=== PATIENT | female | born 1975 | race Caucasian/White ===

== ENCOUNTER 2023-06-13 14:49 | Outpatient (OUT) | payer OTHER, SELFPAY ==
[2023-06-14 05:07] LABS: Complement C3, Serum 146 mg/dL (82-167); Complement C4, Serum 22 mg/dL (12-38)
[2023-06-15 17:07] LABS: Anti-DNA (DS) Ab Qn <1 IU/mL (0-9); Antichromatin Antibodies <0.2 AI (0.0-0.9); RNP Antibodies <0.2 AI (0.0-0.9); Rheumatoid Factor (RF) <10.0 IU/mL (<14.0); Sjogren's Anti-SS-A <0.2 AI (0.0-0.9); Sjogren's Anti-SS-B <0.2 AI (0.0-0.9)
[2023-06-17 08:11] LABS: Antinuclear Antibodies, IFA Negative (.)
== END 2023-06-13 14:50 | disposition home or self-care (01) ==
LOC: LAB 14:53
PROVIDERS: PCP Family Medicine; Visit Provider Family Medicine
DX: M12.9 Arthropathy, unspecified (principal)
CPT/HCPCS: 36415; 86038; 86160; 86225; 86235; 86430; 86431

== ENCOUNTER 2023-09-05 06:51 | Outpatient (OUT) | payer OTHER, SELFPAY ==
[2023-09-05 08:27] LABS: Estimated Average Glucose 123 mg/dL; Glycohemoglobin A1C 5.9 % (4.5-6.2)
== END 2023-09-05 06:52 | disposition home or self-care (01) ==
PROVIDERS: PCP Family Medicine; Visit Provider Family Medicine
DX: R73.09 Other abnormal glucose (principal)
CPT/HCPCS: 36415; 83036

== ENCOUNTER 2023-09-13 07:20 | Outpatient (OUT) | payer OTHER, SELFPAY ==
[2023-09-13 07:39] LABS: Basophils Absolute Auto 0.1 10^3/uL (0.0-0.1); Basophils Percent Auto 0.5 % (0.2-2.0); Eosinophils Absolute Auto 0.1 10^3/uL (0.0-0.7); Eosinophils Percent Auto 1.1 % (0.9-7.0); Hematocrit 43.6 % (36.0-48.0); Hemoglobin 14.6 g/dL (12.0-16.0); Immature Granulocytes Abs Auto 0.02 10^3/uL (0.00-0.03); Immature Granulocytes Pct Auto 0.2 % (0.0-0.5); Lymphocytes Absolute Auto 4.8 10^3/uL (1.2-3.8); Mean Corpuscular HGB Conc 33.5 g/dL (29.9-35.2); Mean Corpuscular Hemoglobin 31.9 pg (26.7-34.0); Mean Corpuscular Volume 95.2 fL (81.0-99.0); Mean Platelet Volume 10.5 fL (9.5-13.5); Monocytes Absolute Auto 0.6 10^3/uL (0.3-0.8); Monocytes Percent Auto 6.4 % (1.7-12.0); Neutrophils Absolute Auto 3.9 10^3/uL (1.4-6.5); Neutrophils Percent Auto 40.8 % (43.0-75.0); Platelet Count 281 10^3/uL (150-450); Red Blood Count 4.58 10^6/uL (4.20-5.40); Red Cell Distribution Width 11.8 % (11.0-15.0); White Blood Count 9.5 10^3/uL (4.0-11.0)
[2023-09-13 08:30] LABS: Alanine Aminotransferase 33 U/L (14-59); Albumin Globulin Ratio 1.4; Albumin Level 4.2 g/dL (3.4-5.0); Alkaline Phosphatase 48 U/L (46-116); Anion Gap 12.7; Aspartate Amino Transferase 15 U/L (15-37); BUN Creatinine Ratio 12.8; Bilirubin Total 2.1 mg/dL (0.2-1.0); Calcium 9.1 mg/dL (8.5-10.1); Carbon Dioxide 28.3 mmol/L (21.0-32.0); Chloride 103 mmol/L (98-107); Estimated GFR (African America >60 (>=60); Estimated GFR (Non-African Ame >60 (>=60); Globulin 3.1 g/dL; Glucose 106 mg/dL (74-106); Magnesium 2.5 mg/dL (1.8-2.4); Sodium 140 mmol/L (136-145); Total Protein 7.3 g/dL (6.4-8.2)
== END 2023-09-13 07:21 | disposition home or self-care (01) ==
LOC: LAB 07:24
PROVIDERS: PCP Family Medicine; Visit Provider Family Medicine
DX: I10 Essential (primary) hypertension (principal)
CPT/HCPCS: 36415; 80053; 83735; 85025

== ENCOUNTER 2023-10-04 08:55 | Outpatient (OUT) | payer OTHER, SELFPAY ==
--- NOTE | 2023-10-04 08:58 | US_ITS ---
The [address] [address] Patient Name: HORACIO KEATING MRN: [id number] date: 1975 Sex: F Assigned Patient Location: US Current Patient Location: Accession/Order Number: [id number] Exam Date: 10/04/2023 09:07 Report Date: 10/07/2023 07:23 At the request of: AURA MALHOTRA Procedure: US pelvis w/ transvaginal EXAMINATION: US pelvis w/ transvaginal HISTORY: PELVIC PAIN IN FEMALE R10.2 COMPARISON: No relevant comparison available. FINDINGS: The uterus is surgically absent. The right ovary measures 3.0 x 1.9 x 2.2 cm. Normal color Doppler flow. Area of anechoic echogenicity measuring 1.5 cm, simple cyst favored. The left ovary is not visualized consistent with provided history of nephrectomy No free fluid US/US pelvis w/ transvaginal IMPRESSION: 1.5 cm right ovarian simple cyst Electronically authenticated by: ABIGAIL SHEEHAN Date: 10/07/2023 07:23
== END 2023-10-04 08:56 | disposition home or self-care (01) ==
LOC: US 08:55
PROVIDERS: PCP Family Medicine; Visit Provider Obstetrics & Gynecology
DX: R10.2 Pelvic and perineal pain (principal); N83.291 Other ovarian cyst, right side
CPT/HCPCS: 76830; 76856

== ENCOUNTER 2023-10-22 18:45 | Outpatient (REF) | payer OTHER, SELFPAY ==
[2023-10-28 13:08] LABS: Age Gdln ACOG Testing Note (.); HPV Aptima Negative (Negative); IGP, Aptima HPV, rfx 16/18,45 Note (.)
== END 2023-10-22 18:46 | disposition home or self-care (01) ==
LOC: LAB 18:45
PROVIDERS: PCP Family Medicine; Visit Provider Physician Assistant
DX: Z01.419 Encounter for gynecological examination (general) (routine) without abnormal findings (principal)
CPT/HCPCS: 87624; G0145

== ENCOUNTER 2023-11-26 09:14 | Outpatient (OUT) | payer OTHER, SELFPAY ==
--- NOTE | 2023-11-26 09:52 | MM_ITS ---
Patient Name: HORACIO KEATING MR#: [id number] : 1975 Exam Date: 11/26/2023 Ordering Doctor: DR Delgado Murillo . RADIOLOGY REPORT PROCEDURE: MM TOMOSYNTHESIS SCREENING BI COMPARISON: MG MAMM SCREEN 3D DEAN CAD, 09/12/2022. MG MAMM SCREEN 3D DEAN CAD, 07/26/2021. MG MAMM SCREEN DEAN W CAD, 12/20/2019. MG MAMM DEAN DIAG W CAD DIG, 05/26/2007. INDICATIONS: screening Calculator Name NCI Breast Cancer Risk Assessment Tool 5 Year Breast Cancer Risk 1.50% Lifetime Breast Cancer Risk 13.40% Personal Breast Cancer No Personal Ovarian Cancer No Treatments None Family Cancers Mother with lung cancer at age 68; Grandmother-maternal with breast cancer at age 64; Grandmother-paternal with ovarian cancer at age 76. LOCATION: The [facility] BREAST COMPOSITION: Scattered areas fibroglandular density. FINDINGS: DIAGNOSTIC CATEGORY 2--BENIGN FINDING: RIGHT BREAST: No significant suspicious finding. No significant change has occurred. LEFT BREAST: No significant suspicious finding. Scattered benign-appearing nodules are present. No significant change has occurred. RECOMMENDATIONS: ROUTINE MAMMOGRAM AND CLINICAL EVALUATION IN 12 MONTHS. PLEASE NOTE: A NORMAL MAMMOGRAM DOES NOT EXCLUDE THE POSSIBILITY OF BREAST CANCER. A CLINICALLY SUSPICIOUS PALPABLE LUMP SHOULD BE BIOPSIED. Dictated by: Aman Mckeon M.D. on 11/27/2023 at 07:41 Approved by: Aman Mckeon M.D. on 11/27/2023 at 07:45
== END 2023-11-26 09:15 | disposition home or self-care (01) ==
LOC: MAMMO 09:14
PROVIDERS: PCP Family Medicine; Visit Provider Obstetrics & Gynecology
DX: Z12.31 Encounter for screening mammogram for malignant neoplasm of breast (principal); Z80.1 Family history of malignant neoplasm of trachea, bronchus and lung; Z80.3 Family history of malignant neoplasm of breast; Z80.41 Family history of malignant neoplasm of ovary
CPT/HCPCS: 77063; 77067

== ENCOUNTER 2024-03-27 12:29 | Emergency (ER) | payer OTHER, SELFPAY ==
--- OUTSIDE RECORDS SUMMARY | 2024-03-27 12:40 | XMS_ITS | CCD ---
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 Name Role Phone Nahid Mccoy Unavailable Clarice Hull Unavailable Sami Marinelli Primary Care Physician Nicola BUCHANAN Attending Unavailable ISMAEL MENJIVAR Referring Unavailable SISSY, DR ABIGAIL Mc Consulting Unavailable LUL, DR GALLARDO Primary Care Unavailable ROSCOE, DR CHAVARRIA Attending Unavailable ROSCOE, DR CHAVARRIA Admitting Unavailable ROSCOE, DR CHAVARRIA Consulting Unavailable ROSCOE, DR CHAVARRIA Consulting Unavailable LUL, DR GALLARDO Referring Unavailable ULL, DR GALLARDO Primary Care Unavailable ROSCOE, DR CHAVARRIA Attending Unavailable ROSCOE, DR CHAVARRIA Admitting Unavailable ZIEBER, DR LUZ ELENA Fermin Consulting Unavailable EULA SMILEY Consulting Unavailable ROSCOE, DR CHAVARRIA Procedure Practitioner Unavailab LUZ ELENA Rolle Consulting Unavailable SIENNA JI Consulting Unavailable READERSAMI Consulting Unavailable LUL, DR GALLARDO Primary Care Unavailable ISMAEL MENJIVAR Attending Unavailable ISMAEL MENJIVAR Admitting Unavailable ROSCOE, DR CHAVARRIA Consulting Unavailable LUL, DR GALLARDO Primary Care Unavailable ROSCOE, DR CHAVARRIA Attending Unavailable ROSCOE, DR CHAVARRIA Admitting Unavailable ROSCOE, DR CHAVARRIA Consulting Unavailable LUL, DR GALLARDO Primary Care Unavailable ROSCOE, DR CHAVARRIA Attending Unavailable ROSCOE, DR CHAVARRIA Admitting Unavailable LUL, DR GALLARDO Consulting Unavailable LUL, DR GALLARDO Primary Care Unavailable ROSCOE, DR CHAVARRIA Attending Unavailable ROSCOE, DR CHAVARRIA Admitting Unavailable ROSCOE, DR CHAVARRIA Consulting Unavailable LUL, DR GALLARDO Consulting Unavailable LUL, DR GALLARDO Primary Care Unavailable LUL, DR GALLARDO Attending Unavailable LUL, DR GALLARDO Admitting Unavailable LUL, DR GALLARDO Consulting Unavailable LUL, DR GALLARDO Primary Care Unavailable HOY, DR GALLARDO Attending Unavailable HOY, DR GALLARDO Admitting Unavailable ZIEBER, DR LUZ ELENA Fermin Consulting Unavailable PAY, DR CRAMER Attending Unavailable PAY, DR CRAMER Admitting Unavailable HOY, DR GALLARDO Primary Care Unavailable PAY, DR CRAMER Consulting Unavailable HOY, DR GALLARDO Consulting Unavailable HOY, DR GALLARDO Primary Care Unavailable HOY, DR GALLARDO Attending Unavailable HOY, DR GALLARDO Admitting Unavailable HOY, DR GALLARDO Consulting Unavailable HOY, DR GALLARDO Primary Care Unavailable HOY, DR GALLARDO Attending Unavailable HOY, DR GALLARDO Admitting Unavailable WEST, DR ABIGAIL Mc Consulting Unavailable HOY, DR GALLARDO Consulting Unavailable HOY, DR GALLARDO Primary Care Unavailable HOY, DR GALLARDO Attending Unavailable HOY, DR GALLARDO Admitting Unavailable MISC, DR RIDER Consulting Unavailable HOY, DR GALLARDO Primary Care Unavailable MISC, DR RIDER Attending Unavailable MISC, DR RIDER Admitting Unavailable ZIEBER, DR LUZ ELENA Fermin Consulting Unavailable JOCELYNNY, DR GALLARDO Primary Care Unavailable ISMAEL MENJIVAR Attending Unavailable ISMAEL MENJIVAR Admitting Unavailable ISMAEL MENJIVAR Consulting Unavailable Dedrick Fuller Attending Unavailable Dedrick Fuller Admitting Unavailable NON STAFF Primary Care Unavailable Nahid Mccoy Admitting Unavailable NON STAFF Primary Care Unavailable Nahid Mccoy Attending Unavailable NON STAFF Primary Care Provider UnavailDO Dedrick Alfaro Attending Provider JESSICA SANCHEZ Attending Unavailable Nicola Neff Attending Unavailab Nicola Anderson Admitting Unavailab SAMI Matos Primary Care Unavailable Allergies Allergy Classification Reported Allergen(s) Allergy Type Date of Onset Reaction(s) Facility (7 sources) NITROFURANTOIN, MACROCRYSTALS / Nitrofurantoin, Monohydrate; 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: [nitrofurantoin] Drug Allergy Neck swelling (finding) [facility] (1 source) Albuterol Drug Allergy [facility] Comment on above: NEED TO CUT DOWN ADR ENALIN TO PREVENT SEIZURES (2 sources) Bee/Wasp/Ant venom; 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: [Bee Stings] Allergy to substance Nausea, Swelling [facility] (1 source) PECANS 1 Food allergy [facility] Comment on above: AIRWAY CONSTRICTION (2 sources) Albuterol; 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: [albuterol] Drug Allergy [facility] (1 source) Egg; 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: [Eggs] Food allergy (disorder) [facility] (4 sources) Nitrofurantoin; 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: [Macrobid] Drug Allergy 2 [facility] (1 source) PECANS; 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: [PECANS] Food allergy (disorder) [facility] (2 sources) bee venom Drug allergy (disorder) 5 [facility] (2 sources) egg extract Drug Allergy 5 [facility] (2 sources) pecan pollen extract Drug Allergy [facility] (2 sources) tree nut, unspecified Drug allergy (disorder) 5 [facility] Medications Current Medications Medication Drug Class(es) Dates Sig (Normalized) Sig (Original) ALPRAZolam 0.25 mg oral tablet (7 sources) Benzodiazepine Start: 11-17-2014 Xanax 0.25 mg Tab 0.25 mg = 1 tab(s), Oral, PRN as needed for anxiety, Refills(s) 0 Start Date: 11/17/14 Status: Ordered aspirin 81 mg oral tablet (6 sources) Platelet Aggregation Inhibitor, Nonsteroidal Anti-inflammatory Drug take 1 tablet by mouth once daily Aspirin 81 81 MG 1 tablet Orally Once a day Active lisinopril 20 mg oral tablet (7 sources) Angiotensin Converting Enzyme Inhibitor Start: 10-30-2022 take 1 tablet by mouth once daily lisinopril 20 mg Tab 20 mg = 1 tab(s), Oral, Daily, Refills(s) 0 Start Date: 10/30/22 Status: Ordered meloxicam 15 mg oral tablet (7 sources) Nonsteroidal Anti-inflammatory Drug Start: 10-30-2022 take 1 tablet by mouth once daily meloxicam 15 mg Tab 15 mg = 1 tab(s), Oral, Daily, Refills(s) 0 Start Date: 10/30/22 Status: Ordered Multivitamin preparation (6 sources) take 1 tablet by mouth once daily Multivitamin - 1 tablet Orally Once a day Active omeprazole 40 mg delayed release oral capsule (7 sources) Proton Pump Inhibitor Start: 10-30-2022 take 1 capsule by mouth twice daily omeprazole 40 mg Cap-DR 40 mg = 1 cap(s), Oral, BID, Refills(s) 0 Start Date: 10/30/22 Status: Ordered take 1 capsule by [facility] every twenty-four hours Omeprazole 40 MG 1 cap(s) p.o. Once a da y Active QUEtiapine 25 mg oral tablet (7 sources) Atypical Antipsychotic Start: 10-30-2022 take 1 tablet by mouth once daily SEROquel 25 mg Tab 25 mg = 1 tab(s), Oral, Daily, Refills(s) 0 Start Date: 10/30/22 Status: Ordered 0.25 mg, 0.5 mg dose 1.5 ml semaglutide 1.34 mg/ml pen injector (5 sources) Start: 08-28-2022 Ozempic (0.25 or 0.5 MG/DOSE) 2 MG/1.5ML 0.25 mg for one month and then increase to 0.5 mg dose Subcutaneous weekly for 30 days Aug, Active Completed/Discontinued Medications Medication Drug Class(es) Dates Sig (Normalized) Sig (Original) 0.5 ML semaglutide 0.5 MG/ML Auto-Injector [Wegovy] (5 sources) Start: 09-20-2022 Wegovy 0.25 MG/0.5ML 1 injector Subcutaneous Weekly for 28 days Aug, Not-Taking Start: 09-20-2022 Wegovy 0.25 MG /0.5ML 1 injector Subcutaneous Weekly for 28 days Aug, Active Problems Active Problems Problem Classification Problem Date Documented Da te Episodic/Chronic Abdominal pain (8 sources) Unspecified abdominal pain; 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: [Periumbilical pain] Onset: 2 Episodic Anxiety disorders (1 source) Anxiety 11-17-2014 Chronic Diabetes mellitus without complication (4 sources) Prediabetes; 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: [Prediabetes] Onset: 2 Episodic Diseases of white blood cells (1 source) Elevated white blood cell count, unspecified; 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: [ELEVATED WHITE BLOOD CELL COUNT UNS] Onset: 2 Chronic Disorders of lipid metabolism (10 sources) Mixed hyperlipidemia; 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: [Mixed hyperlipidemia] Chronic Esophageal disorders (10 sources) Gastroesophageal reflux disease; 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: [Gastro-esophageal reflux disease without esophagitis] Onset: 2 Chronic Essential hypertension (9 sources) Hypertensive disorder; 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: [Essential (primary) hypertension] Chronic Gastroduodenal ulcer (except hemorrhage) (1 source) H/O: gastric ulcer 10-30-2022 Episodic Menstrual disorders (3 sources) Dysmenorrhea, unspecified; 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: [DYSMENORRHEA UNSPECIFIED] Onset: 2 Chronic Osteoarthritis (2 sources) Primary osteoarthritis, left hand; 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: [Primary osteoarthritis, right hand] Onset: 2 Chronic Other aftercare (1 source) Other fdc (current) drug therapy; 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: [OTH BODYWORK THERAPIST CURRENT DRUG THERAPY] Onset: 2 Episodic Other and unspecified benign neoplasm (1 source) Lipoma of abdominal wall 11-17-2014 Episodic Comment on above: X2 Other and unspecified benign neoplasm (1 source) Adenoma of sigmoid colon 10-30-2022 Episodic Other female genital disorders (1 source) Abnormal uterine and vaginal bleeding, unspecified; 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: [ABNORMAL UTERINE VAGINAL BLEED UNS] Onset: 2 Chronic Other gastrointestinal disorders (1 source) Irritable bowel syndrome 10-30-2022 Chronic Other gastrointestinal disorders (1 source) Irritable bowel syndrome without diarrhea; 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: [IRRITABLE BOWEL SYND W/O DIARRHEA] Onset: 2 Chronic Other nutritional; endocrine; and metabolic disorders (7 sources) Metabolic syndrome X; 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: [Metabolic syndrome] 10-30-2022 Chronic Other nutritional; endocrine; and metabolic disorders (3 sources) Metabolic syndrome; 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: [METABOLIC SYNDROME] Onset: 2 Chronic Other nutritional; endocrine; and metabolic disorders (5 sources) Obesity; 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: [Obesity, unspecified] 11-17-2014 Chronic Other nutritional; endocrine; and metabolic disorders (1 source) Obesity, unspecified Chronic Other nutritional; endocrine; and metabolic disorders (1 source) Body mass index 30+ - obesity 11-01-2022 Chronic Other nutritional; endocrine; and metabolic disorders (6 sources) Abnormal weight gain; 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: [ABNORMAL WEIGHT GAIN] Onset: 2 Episodic Other screening for suspected conditions (not mental disorders or infectious disease) (8 sources) Encounter for screening mammogram for malignant neoplasm of breast; 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: [Encounter for screening for malignant neoplasm of cervix] Onset: 2 Episodic Residual codes; unclassified (8 sources) Obstructive sleep apnea syndrome; 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: [Obstructive sleep apnea (adult) (pediatric)] Onset: 2 10-30-2022 Chronic Residual codes; unclassified (5 sources) Obstructive sleep apnea (adult) (pediatric); 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: [OBSTRUCTIVE SLEEP APNEA] Onset: 2 Chronic Residual codes; unclassified (1 source) At risk of epileptic fits 10-30-2022 Episodic Residual codes; unclassified (1 source) Acquired absence of both cervix and uterus; 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: [ACQUIRED ABSENCE BOTH CERVIX AND UTERUS] Onset: 2 Episodic Residual codes; unclassified (1 source) Acquired absence of other specified parts of digestive tract; 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: [ACQ ABSENCE OTH PART DIGESTV TRACT] Onset: 2 Episodic Residual codes; unclassified (1 source) Family history of malignant neoplasm of breast; 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: [FAMILY HX MALIG NEOPLASM OF BREAST] Onset: 2 Episodic Residual codes; unclassified (1 source) Family history of malignant neoplasm of ovary; 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: [FAM HX MALIGNANT NEOPLASM OVARY] Onset: 2 Episodic Substance-related disorders (1 source) Smoker 11-17-2014 Chronic Comment on above: Added secondary to d ocumentation in Social History. Unclassified (4 sources) CONTACT W/AND (SUSP) EXPOS COVID-19; 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: [CONTACT W/AND (SUSP) EXPOS COVID-19] Onset: 2 Unclassified (1 source) Dietary counseling and surveillance; 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: [Dietary counseling and surveillance] Onset: 2 Past or Other Problems Problem Classification Problem Date Documented Date Episodic/Chronic Immunizations and screening for infectious disease (1 source) Encounter for screening for human papillomavirus (HPV); 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: [ENC SCREENING HUMAN PAPILLOMAVIRUS] Onset: 05-08-2022 Episodic Nonspecific chest pain (1 source) Chest pain, unspecified; 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: [CHEST PAIN UNSPECIFIED] Onset: 05-28-2022 Episodic Other non-traumatic joint disorders (4 sources) Pain in unspecified joint; 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: [PAIN IN UNSPECIFIED JOINT] Onset: 02-19-2022 Episodic Ovarian cyst (2 sources) Cyst of ovary; 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: [Unspecified ovarian cyst, right side] Onset: 05-28-2022 10-30-2022 Episodic Unclassified (1 source) CONTACT W/AND (SUSP) EXPOS COVID-19; 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: [CONTACT W/AND (SUSP) EXPOS COVID-19] Onset: 12-04-2021 Results Test Name Value Interpretation Reference Range Facility Coding Summaryon 03-19-2024 Coding Summary HTMLBase 64 GuyxemgiWMz3nFn+PGhlY WQ+FL9ULIHfP12ntPCgbB 2dL6WFRDvIWhfkTNZQRNt WHwHwsiKyJE1djUUwTLCl IC8+MX6xHBByPuhueZSik 7F7fKC0T06oig9fFNqzoQ T0BRKrGuOiejful7zxhIy 6IDcuNmluOyBt WXViqY83GRU4cJ83Ck57f BKrtCKcj8emrDs4XfZbEL QdOOX4kCogSXtdf6OxLPU aJ58rbYZzp6Q5 CMFgdLbibXJqEqVpsYK6x Y1iPSijgvswp4isbjonZk g4mo21bKNrc6Z1lBL6W7B njlC9FZBdrRQn XgiwrZPFjX6jxfdts3kjv ngdAqUsXLBhQJe5TFz8YO SdoHebPeAeGO01JAD7NWK kmaIbY2QwLFUe eXhuKcP6t6A6Ns6PT5HWN xgaS8FVKTQCBUzjxIS+PC 10pu45X6KeVpzlSwu3IMW fWZQ9kKG9rM2m GRZqEDxqm9G5bVP0V8Wso qCzql3zk3pzPVQgAWrxG9 8kdWAkl8A4JVNusBM0YPM hrHyyMxHcuZ49 Oyc+TKMuyEzmw1NsAhfnu 3wbu1zgrLp5UdenVESajq TvpAmaSOX9f7LdJp6uLBH voTG0tMG9aJ1x XtJkYgT6CWcdA433FnOtk UZsYgsnX57zN0ExnBA+PH JvLvn9CAHjoXuuXM0eN3S hZGRpbmctbGVm bIoxJC0nWQUbvehgNZKca Z2jYFVbV8u9PxCzOeQ7BH yiK9OmWZLjdnbaTc20wN5 zZaEdRmW6AXty B5VdvdE3MNLpuKJlJUbsA FK4D77th3T6NDYaMSLkKG D0oYL2uG2mrIrbfjvubFE mdDsgdmVydGlj LNhlVPqnV933LLPqrAquY kNvZGluZyBEYXRlOiAgMD QvMTkvMjAyNDwvdGQ+PHR sGWI5yVwpDVFn dDExFJteZl7lnCfpkBuvF J2aADIcaqsxYBKaiW7xQW FkjURlkVlnSF1bJKEyotb cc581AgCvEXX3 FPDogUUeX4FdtH2sMoFfP JTaAWVzC9ZzhTPyMVpeQ5 61VMymUhA8MROmsrMcD5T sLWFsaWduOiB0 c3F3Ta5Vf6RajulrX5Eur QZhHuQxLixvTFr0H9RsMj wvdHI+LV21EHDsTA51VOm 8XRM9rArtVRac NIZhI6ZelL7xEgUbGHMtO GRkOyc+PHRhYmxlIHdpZH RoPScxMDAlJyBzdHlsZT0 xPd2mQQDgPNDp wQhjiWTjZsCrm5wgOBQpN NysEB7fuNoyX0OdxJJ8BY Ily2i0Kn59Z81wE6EivBG +YMTxnXQ4wZZ0 uW1hLoJyYhT7UUohQ498S zLvoUDkPlynt2rtn6zyxK k9RcN9NRVhgqOfpEbdSIW 0v8DpNq14J37g IHdpZHRoPSIxNSUiIHZhb Sdwjw5kfO4dNq6+PGNvbC T1lOQ4jS8fWzJuVhK6RZy yG063OnZxyPId Tdqtz8jlt1hbfQr6RyMcH VDmlmFfmWuqEYQ4r3WaQj 99Z8MzcDlgr4LzOnq1au9 2uXPkt1C5kRR8 Z3SjDUPljksheQNbpWeiJ J9aPSZlwxruPOQekQ1fPH FtH0p7YqGcYuF3UYgwG6P zpeW5AKNoqBBo VHKrxLTPoF3talhlo9sjc henHfFcAHVmOZz9ZEk6HV RfqAjvIcLeWDW3ZuQ5HIV 8pWYfbV1hlCob nwfygF3iSoe+TXD4lBVly UMJQT9bKgoerNN+PHRkIH F2oDamARpxAOAinR5bSUW mT2n4KeKcYzK5 HInbC5VgkdR3ALPfvENmK LUncNRBhI1zxbizh6cadw ytIrAaVHAvPTz0KXg2XEA saWduOiBsZWZ0 TiD5EVQ0nONttX1yePhnx mrsnX0wCmy+QmlydGggRG U1EOu5O2SdSxb2KUUydHs gNF7jiBAqQXam Ki3peMqyzSnvHK7lJGZzp yrfl429GyHvh7hyWRLaeT BcOOrbHIA5K17rg5P4YQE sJNYrFZP8uWH7 nU1yzHsnrvktlLKbpJxou iDofJrtFZkgPWxxR289QU JmeGcuNhGzHKa1U2VrEpp 5BSHvaQckYA9e dJWoPLzzOq1lhYkenDabZ K9sLPFxqmnue865OoFxl6 trTRMnwIOqHUskJKZ9E27 rq0P4OEGyQMMz AUM4hNX4lP0saKnbjzsbc GVmdDsgdmVydGljYWwtYW orX037LAYbvZooPyXnfHt 7U1MvTgu1KSDt uJhzOR9zpPFbOBnsOt5xg AxueBrvYY5aTSBffungi5 83BgQfk2ksQRVfxZGzZJy aJMA9P46fo6R9 AQAzQRGxJRR2jUO5kY1bj GlnbjogbGVmdDsgdmVydG dfNTudVLciI828XUWpcGg nPlBhdGllbnQg HJrjEMt9J6UbOghrfRL+P G91WIYzDY27yHKerWQzd1 xdgIt3OfXaYHOqOWY2oIm yFRsba1HiXPCa K65fnWNwz7P0JEXitFxnc GLtQdOvoKC6uC8kCWmdjn qmq0znzhwrHrxvt7gxep0 1xO00K12mPIxs ZHRoPSIzMCUiIHZhbGlnb z8lbT0tEv5+TOBmlMW6eX D2kD8rKWBlCiE7JRkrN34 9InRvcCIvPjxj q1emt0slnQg6BxB1DNYaf nCgrYqrWXP6q4AkJe69L8 9sIHdpZHRoPSIyMCUiIHZ ojZnccr7knF9q Ii8+HXPdjKU3hKZ0yY5oB hZuGdP9NUxtW443DnXssD MjEerfP21cS2FqjMZ+PHR aSsp3LVMqgKbd RT7oqYQiUKphYl3pUMH9B jHmBrZbVIsdE9UkRFZoxt jsqhbdrHQ8DNIpONSeeH7 4Vb9alDdfUKAg qRKYbK8fugozi7qkkybkO zFjQHUgHDq3GAx2FPXcbS lqDwNdRAD6PsD1BBB8lQH bxI7cuDoeexur mO2rX3HkYVVvbdyyTj24s U5cPvQaArY5LNzlZhb+Q0 8UNTYMYJFTIXBCEJ7TPD8 PP73YXOelvEF+ HRZaONI1eSkoKJdhDXRzv R2wITShR4x1PoQeTxU4XG jpS0YxLNPplhyiJz07uR1 xXdJrUzN7BPwe V9AfgcW0IMMngSFaJNytQ AX4S34fe2O6EGDfUHGxMW Q6uTY4vT4rkRnjornsrSN mdDsgdmVydGlj YVdoZEfyQ591QXFxvOkgD dF5JbA7JkT8ZhA4N7RsKn w6PNHqwZabLN0cjFMiQYj bTo3mpIucjHqz LK5dXAHnplukGUHxyZ6tZ JAfuLBxjHcmYL8kXARixj eze444MyYkORG4NJXbgDD rC3JvmN8hReZw NMUgHTXeM2EgsUVgJEjwC 881FXjiTeF4ETRtcyOyR5 HbUOFqsAusVsI9t0N8Mv2 0NyBZZWFyczwv dGQ+CYVuWAN6iTsdPIdvF GJvkZ9jGZYoL4u1BcZhOq R0JJusO2CoVGIbgdxeRz0 2jA8wNyUqWeO1 TMgzF0XpmxW7RFPyxBVvB MqwHKW0R41lt4U1AUHmEN EaXQX7gUR3iZ4xySwubyd gbGVmdDsgdmVy xCmkDDkuMLscY033TIQig DsnPkZFTUFMRTwvdGQ+PH IwUSB9pTwcMWgjQKDqbA1 aUHIvC0r4GeVt SaG6BWriQ5LzZXImtvchF g31vZ7bCnBnBrW0GRjrB6 BqvbW6PMOrcEWoBCcjZOH 4T32da0D7IFEg XICgSBQ4uDS9cK9avZuqt jogbGVmdDsgdmVydGljYW osGFdkG345DXEdpOtbUrT gFHZiUP3ytVnm dGQ+FN42pq89T3TiDpvaN ww4XQXbGGD6fMZ3fX0jGX KxUBici4X0zUZ6B4KayqA qfk9py1enCTZj RMarV54jtJGyd0I5TITmt ID1IBZrrFglGrQelE69Ix c+CJWteEofc7IjOrptv7y mo8gcaAm7FaRn TFTqiwNxwUfkFPM9h9OuH o88D15sLViiBBBqUIPxRY LhPNOtaYxxhn6mpC6cDg0 +JDKmrGW8iJD4 fI9aAjNuMwB1JDjfL958G rAmiLNxHcram8gfo4kewL r6CwCjKTYkxkNukPzyRJM 4a9RjSn95T1Fl pEuks7IyEyi8km19jAAyd 7M8dPI8B3DkDMUtofjsoU VxfZcjTL6rSSMmssvzSZZ jyS8lPCQfH5n6 HrTxTsZ0XTgzT2FskuK4B EWwoWGdUEYouDDMnC2uwk cpk2nmytupUpEdASBbDOh 4QKx0HCGxxRay DjOxRTB4WdE6CJO9qJKot I1utVgzkbnfhE2qGsd+UG k4u9xyvMLcMM0qdZM1QJ7 0AJ07nWJhh2C2 tRV2A0KeMRAmbnafycghj UG8AZQmATQcwY67Nk5rvF dfFm8yREGeZKA0LTVoyAA tK3DjxR6hYlSc WGNnQQVqV5AxpJViMOawM 160GTurAgX7LIFwlmBlA0 TwZBOddTblQsQ3s1W1Vf3 CZS29QZ21AR19 oEIrf7Y7mKE9O9LsCEUsm eidizcqlZL0VCRdOIWrvA 81Jx9xtWfaYb2jVETkPOJ 0XXDewDEkE5Bg dW8gJoXtDLPvRYGkK6Ujq NRhHDyqH046EHstNtT9IR RzyrByJ3SiDXWveQcaNeB 4w2Z2Kt9TCc42 TM82EC12kKYpd6I9rDG4V 8JaDXEoeurtawnjzGU0HM JdJOJlhL29Re0ptLjvFk6 lEAAfDSB5VAGe gZMvH9BvwL3bKbQuGBKtN YEgF0PnmZDmVPwiF901NJ owRiI8GGEtlyJuT7IoJRP uwSsgPsL6c1S0 Lp4LDBkvddp9P9IsVvqoh HI+PC88VYTqKW72fMEilN Pas9bukFr8DuQbXBVwEUE 7dTcvWMwcp2Kv ZXI (more content not included)... Normal [facility] Noteon 03-17-2024 Ambulance Note [id number]#1.00 OTGTIFF Normal [facility] C Urineon 03-17-2024 C Urine Urine Culture ordere d as a result of parameters set on specific urine dip and urine microsopic results. >100,000 cfu/ml Lactobacillus species Normal vaginal oleg isolated 10,000 cfu/ml Corynebacterium species (DIPTHEROID) No YOLANDE performed on this organism No pathogens isolated [facility] Comment on above: Performed By: #### 5 [id number] ####[facility] (DEFAULT)[address] [place] [address] .Auto Diff 1on 03-15-2024 Auto [place] % 3 % Normal -12 [facility] Comment on above: Performed By: #### 5 [id number], [id number], [id number], [id number], [id number] #### [facility] (DEFAULT) [address] [place] [address] Baso Abs# 0.1 x10 Normal 0.0-0.2 [facility] Comment on above: Performed By: #### 5 [id number], [id number], [id number], [id number], [id number], [id number] #### [facility] (DEFAULT) [address] [place] [address] Basophils/100 WBC (Bld) 0.7 % Normal 0.2-2.0 [facility] Comment on above: Performed By: #### 5 [id number], [id number], [id number], [id number], [id number], [id number] #### [facility] (DEFAULT) [address] [place] [address] Eos Abs# 0.1 x10 Normal 0.0-0.4 [facility] Comment on above: Performed By: #### 5 [id number], [id number], [id number], [id number], [id number], [id number] #### [facility] (DEFAULT) [address] [place] [address] Eosinophils/100 WBC (Bld) 0.7 % Low 0.9-4.0 [facility] Comment on above: Performed By: #### 5 [id number], [id number], [id number], [id number], [id number], [id number], [id number] #### [facility] (DEFAULT) [address] [place] [address] Lymph Abs# 2.2 x10 Normal 1.3-2.9 [facility] Comment on above: Performed By: #### 5 [id number], [id number], [id number], [id number], [id number], [id number], [id number] #### [facility] (DEFAULT) [address] [place] [address] 25989 Lymphocytes/100 WBC (Bld) 14 % Normal 14-48 [facility] Comment on above: Performed By: #### 5 [id number], [id number], [id number], [id number], [id number], [id number] #### [facility] (DEFAULT) [address] [place] [address] [place] Abs# 0.5 x10 Normal 0.0-0.8 [facility] Comment on above: Performed By: #### 5 [id number], [id number], [id number], [id number], [id number], [id number], [id number] #### [facility] (DEFAULT) [address] [place] [address] 73273 Neut Abs# 13.5 x10 High 1.5-9.2 [facility] Comment on above: Result Comment: Slid e Reviewed Performed By: #### 5 [id number], [id number], [id number], [id number], [id number], 6665650, [id number] #### [facility] (DEFAULT) [address] [place], [place] [id number] Neutrophils/100 WBC (Bld) 82 % Normal 44-88 [facility] Comment on above: Performed By: #### 5 [id number], [id number], [id number], 48056172, [id number], 9149809, 0221546 #### [facility] (DEFAULT) [address] [place] [address] CBC w/ Auto Diffon 4 Erythrocyte distribution width (RBC) [Ratio] 13.3 % Normal 11.5-15.0 [facility] Comment on above: Performed By: #### 5 [id number], [id number], [id number], 42309939, [id number], 8264125, 0429025 #### [facility] (DEFAULT) [address] [place] [address] Hematocrit (Bld) [Volume fraction] 45.0 % High 33.7-40.4 [facility] Comment on above: Performed By: #### 5 [id number], [id number], 8739670806, 69549561, 6969733360, 0546452, 2100023 #### [facility] (DEFAULT) [address] [place] [address] Hemoglobin (Bld) [Mass/Vol] 15.0 g/dL Normal 11.3-15.9 [facility] Comment on above: Performed By: #### 5 [id number], [id number], 2267328407, 29386724, 9004474696, 7910257, 0636308 #### [facility] (DEFAULT) [address] [place] [address] 74975 Man Diff? Auto Invalid Interpretation Code [facility] Comment on above: Performed By: #### 5 [id number], [id number], [id number], 15953737, 7255264225, 9890778, 3269872 #### [facility] (DEFAULT) [address] [place] [address] 86455 MCH (RBC) [Entitic mass] 32 pg Normal 24-34 [facility] Comment on above: Performed By: #### 5 [id number], [id number], 1268177791, 31366564, 8837604465, 9277362, 3625045 #### [facility] (DEFAULT) [address] [place] [address] 54335 MCHC (RBC) [Mass/Vol] 33 g/dL Normal 26-37 [facility] Comment on above: Performed By: #### 5 [id number], [id number], 9100771270, 17579164, 6927825572, 8318129, 8963246 #### [facility] (DEFAULT) [address] [place] [address] 15236 MCV (RBC) [Entitic vol] 95 fL Normal 81-100 [facility] Comment on above: Performed By: #### 5 [id number], [id number], 4986106480, 54014003, 1780294211, 9266272, 8786215 #### [facility] (DEFAULT) [address] [place] [address] 11218 Platelet 292 x10 Normal 138-427 [facility] Comment on above: Performed By: #### 5 [id number], [id number], 7932341405, 29188428, 3545774396, 4684708, 8013755 #### [facility] (DEFAULT) [address] [place] [address] 72181 Platelet mean volume (Bld) [Entitic vol] 8.7 fL Normal 6.3-10.2 [facility] Comment on above: Performed By: #### 5 [id number], [id number], 6823338751, 96061319, 1082636066, 4549665, 2557503 #### [facility] (DEFAULT) [address] [place] [address] 17921 RBC 4.74 x10 Normal 3.70-5.30 [facility] Comment on above: Performed By: #### 5 [id number], [id number], 8204156861, 16960966, 3740354977, 8454497, 3994434 #### [facility] (DEFAULT) [address] [place] [address] WBC 16.4 x10 High 3.5-10.5 [facility] Comment on above: Performed By: #### 5 [id number], [id number], 8593325932, 98700659, 4989792593, 4902354, 8827433 #### [facility] (DEFAULT) [address] [place], [place] [address] 337[address] CMP Standardon 03-15-2024 eGFR Non AA >60 Invalid Interpretation Code [facility] Comment on above: Performed By: #### 5 [id number], [id number], [id number], [id number], [id number], 4412057, [id number] #### [facility] (DEFAULT) [address] [place] [address] 07374 eGFR AA >60 Invalid Interpretation Code [facility] Comment on above: Performed By: #### 5 [id number], [id number], [id number], [id number], [id number], 9611713, 5675504 #### [facility] (DEFAULT) [address] [place] [address] 81396 Albumin [Mass/Vol] 4.1 g/dL Normal 3.5-5.0 [facility] Comment on above: Performed By: #### 5 [id number], [id number], [id number], [id number], [id number], 7486311, 2360498 #### [facility] (DEFAULT) [address] [place] [address] 21987 Albumin/Globulin [Mass ratio] 1.3 {ratio} Low 1.4-2.6 [facility] Comment on above: Performed By: #### 5 [id number], [id number], [id number], 77549072, 7346051436, 8991738, 7565105 #### [facility] (DEFAULT) [address] [place] [address] 94541 Alk Phos 39 IU/L Normal 32-91 [facility] Comment on above: Performed By: #### 5 [id number], [id number], [id number], 64331173, [id number], 9007582, 4445892 #### [facility] (DEFAULT) [address] [place] [address] 80000 ALT [Catalytic activity/Vol] 32.0 U/L Normal 14.0-54.0 [facility] Comment on above: Performed By: #### 5 [id number], [id number], [id number], 07496625, 2486876935, 7297602, 0893887 #### [facility] (DEFAULT) [address] [place] [address] 46429 Anion gap [Moles/Vol] 13.0 mmol/L Normal 5.0-19.0 [facility] Comment on above: Performed By: #### 5 [id number], [id number], [id number], 64550250, 0174622751, 2712938, 9560533 #### [facility] (DEFAULT) [address] [place] [address] 38946 AST [Catalytic activity/Vol] 25 U/L Normal 15-41 [facility] Comment on above: Performed By: #### 5 [id number], [id number], [id number], 42440453, 8180114772, 0295237, 5461385 #### [facility] (DEFAULT) [address] [place] [address] 29067 Bili Total 1.4 mg/dL High 0.3-1.2 [facility] Comment on above: Performed By: #### 5 [id number], [id number], [id number], 25283697, 2209780963, 3388130, 3466089 #### [facility] (DEFAULT) [address] [place] [address] 68719 Calcium [Mass/Vol] 8.8 mg/dL Low 8.9-10.3 [facility] Comment on above: Performed By: #### 5 [id number], [id number], [id number], 02251096, 3911479687, 1407032, 1910161 #### [facility] (DEFAULT) [address] [place] [address] 62147 Chloride [Moles/Vol] 105 mmol/L Normal 101-111 [facility] Comment on above: Performed By: #### 5 [id number], [id number], [id number], 87583502, 2381967599, 6761336, 2133224 #### [facility] (DEFAULT) [address] [place] [address] 47727 CO2 [Moles/Vol] 24 mmol/L Normal 21-32 [facility] Comment on above: Performed By: #### 5 [id number], [id number], 0677735489, 69905049, 2290614033, 8712809, 1079962 #### [facility] (DEFAULT) [address] [place] [address] 94451 Creatinine [Mass/Vol] 0.72 mg/dL Normal 0.60-1.30 [facility] Comment on above: Performed By: #### 5 [id number], [id number], 7038225665, 30571292, 3986266883, 9515731, 4363883 #### [facility] (DEFAULT) [address] [place] [address] 92440 Globulin (S) [Mass/Vol] 3.0 g/dL Normal 1.5-4.3 [facility] Comment on above: Performed By: #### 5 [id number], [id number], 7377877191, 35672789, 0598699169, 2641664, 3788791 #### [facility] (DEFAULT) [address] [place] [address] 24466 Glucose [Mass/Vol] 124.0 mg/dL High 74.0-118.0 [facility] Comment on above: Performed By: #### 5 [id number], [id number], 4250486949, 57899744, 5247564203, 8462235, 7060506 #### [facility] (DEFAULT) [address] [place] [address] 87041 Osmolality 278 mOsm/L Invalid Interpretation Code [facility] Comment on above: Performed By: #### 5 [id number], [id number], 6187212931, 23140285, 0841982663, 9774171, 7593666 #### [facility] (DEFAULT) [address] [place] [address] 74827 Potassium [Moles/Vol] 4.0 mmol/L Normal 3.6-5.1 [facility] Comment on above: Performed By: #### 5 [id number], 8697435194, 6844440314, 90194924, 1041751565, 8284751, 1888645 #### [facility] (DEFAULT) [address] [place] [address] 29620 Protein [Mass/Vol] 7.1 g/dL Normal 6.5-8.1 [facility] Comment on above: Performed By: #### 5 [id number], [id number], 3030240378, 10054893, 1824479732, 3696740, 3478126 #### [facility] (DEFAULT) [address] [place] [address] 15781 Sodium [Moles/Vol] 138.0 mmol/L Normal 136.0-144.0 [facility] Comment on above: Performed By: #### 5 [id number], [id number], 0394522641, 74213944, 8320745456, 3596902, 5840621 #### [facility] (DEFAULT) [address] [place] [address] 80653 Urea nitrogen [Mass/Vol] 15 mg/dL Normal 8-26 [facility] Comment on above: Performed By: #### 5 [id number], [id number], 1061582952, 86356741, 7681903072, 3239039, 8309638 #### [facility] (DEFAULT) [address] [place] [address] 83973 Urea nitrogen/Creatinine [Mass ratio] 20.8 mg/mg High 4.6-16.2 [facility] Comment on above: Performed By: #### 5 [id number], [id number], 0107017786, 02658194, 4498018822, 9528714, 1414723 #### [facility] (DEFAULT) [address] [place] [address] 87040 Breakpoint Chem Normal [facility] Comment on above: Performed By: #### 5 [id number], [id number], [id number], 01500534, 9808409773, 6404186, 3353617 #### [facility] (DEFAULT) [address] [place] [address] 28235 ED Clinical Summaryon 2023 ED Clinical Summary [facility] - Emergency Department [address] [place], [place] [id number] ED Clinical Summary PERSON INFORMATION Name: HORACIO KEATING Age: 48 Years Sex: FEMALE : 1975 MRN: Acct#: Visit Reason: Shortness of breath; Anxiety; Blood pressure check; SOB Arrival: 03/15/2024 17:56:51 Discharge: 03/15/2024 20:31:00 LOS: 000 02:35 Check In: 03/15/2024 17:56:51 Checkout:03/15/2024 20:31:00 Address: [address] [place] [address] PCP: SAMI MARINELLI PROVIDER INFORMATION Provider Role Assigned Unassigned Nicola Neff DO ED Provider 03/15/2024 18:07:25 Shanika Narvaez RN ED Nurse 03/15/2024 18:08:57 Joanna Angeles RN ED Nurse 03/15/2024 19:24:01 VITALS INFORMATION Vital Sign Triage Latest Temperature Tympanic Temperature Temporal Artery 37 DegC Pulse Rate 71 bpm 66 bpm O2 Sat 98 % 100 % Respiratory Rate 18 br/min 18 br/min Blood Pressure /95 mmHg /95 mmHg MEDICAL INFORMATION Medications Given: Medication Dose Route Sodium Chloride 0.9% intravenous solution 500 mL 500 mL Initial Volume 20 mL/hr IV Left Antecubital Fossa LORazepam (Ativan) 1 mg IV Push Allergy Information: Macrobid; albuterol PHYSICIAN DOCUMENTATION Patient: HORACIO KEATING Age: 48 years Sex: FEMALE : 1975 Associated Diagnoses: Hypertension; Panic attack; Urinary tract infection Author: Nicola Neff DO Basic Information Additional information: Chief Complaint from Nursing Triage Note : Chief Complaint 03/15/2024 18:19 EDT Chief Complaint Patient had an episode at her work wher she felt numbness in her hands, legs, and lips. and felt short of breath. Patient states she is under a lot of stress and has had high blood pressures at home. . History of Present Illness 48-year-old female to the emergency department with possible anxiety attack. Patient states that her primary care physician has been monitoring her blood pressure and she checks it frequently. Patient states it has been elevated over the last several days. Patient states that she has taken a beta-jeffrey for it also has Xanax at home which she rarely uses. Patient states that at work she felt lightheaded and short of breath. Patient states she began having numbness and tingling in her fingertips and around her mouth. She had tightness in her chest so 911 was called. Patient denies recent travel no calf pain or swelling. Patient states she has been under tremendous amount of stress recently. Working 16 hours a day 2 jobs and also stress at home. Review of Systems Constitutional symptoms: Negative except as documented in HPI. Skin symptoms: Negative except as documented in HPI. Eye symptoms: Negative except as documented in HPI. ENMT symptoms: Negative except as documented in HPI. Respiratory symptoms: Shortness of breath, No cough, Cardiovascular symptoms: Chest pain, tachycardia, No palpitations, Gastrointestinal symptoms: Negative except as documented in HPI. Genitourinary symptoms: Negative except as documented in HPI. Musculoskeletal symptoms: Negative except as documented in HPI. Neurologic symptoms: Dizziness, numbness, tingling, No headache, Psychiatric symptoms: Anxiety, sleeping problems. Health Status Allergies: Allergic Reactions (Selected) Unknown Albuterol- No reactions were documented. Macrobid- No reactions were documented.. Medications: (Selected) Inpatient Medications Ordered Sodium Chloride 0.9% intravenous solution 500 mL: 20 mL/hr, IV Documented Medications Documented Metoprolol Tartrate 50 mg oral tablet: 50 mg = 1 tab(s), Oral, BID, 180 tab(s), 0 Refill(s) doxepin 10 mg oral capsule: 10 mg = 1 cap(s), Oral, TID, 90 cap(s), 0 Refill(s) meloxicam 15 mg oral tablet: 15 mg = 1 tab(s), Oral, Daily, 90 tab(s), 0 Refill(s) methylphenidate 20 mg oral tablet: 20 mg = 1 tab(s), Oral, BID, 0 Refill(s) modafinil 200 mg oral tablet: 200 mg = 1 tab(s), Oral, qAM, 90 tab(s), 0 Refill(s) omeprazole 40 mg oral delayed release capsule: 40 mg = 1 cap(s), Oral, Daily, 90 cap(s), 0 Refill(s) oxaprozin 600 mg oral tablet: 1,200 mg = 2 tab(s), Oral, Daily, 180 tab(s), 0 Refill(s) predniSONE 10 mg oral tablet: 10 mg = 1 tab(s), Oral, Daily, for 10 day(s), 10 tab(s), 0 Refill(s). Past Medical/ Family/ Social History Medical history: No active or resolved past medical history items have been selected or recorded.. Surgical history: No active procedure history items have been selected or recorded.. Family history: No family history items have been selected or recorded.. Social history: Social & Psychosocial Habits Alcohol 03/15/2024 Alcohol Use: Current Frequency: 1-2 times per year Substance Use 03/15/2024 Substance use: Never Tobacco 03/15/2024 Smoking tobacco use: Never tobacco user Electronic Cigarette/Vaping 03/15/2024 Electronic Cigarette Use: Never . Problem list: No qualifying data available . Physical Exa (more content not included)... [facility] ED Note - Physicianon 2023 ED Note - Physician Patient: HORACIO KEATING Age: 48 years Sex: FEMALE : 1975 Associated Diagnoses: Hypertension; Panic attack; Urinary tract infection Author: Nicola Neff DO Basic Information Additional information: Chief Complaint from Nursing Triage Note : Chief Complaint 03/15/2024 18:19 EDT Chief Complaint Patient had an episode at her work wher she felt numbness in her hands, legs, and lips. and felt short of breath. Patient states she is under a lot of stress and has had high blood pressures at home. . History of Present Illness 48-year-old female to the emergency department with possible anxiety attack. Patient states that her primary care physician has been monitoring her blood pressure and she checks it frequently. Patient states it has been elevated over the last several days. Patient states that she has taken a beta-jeffrey for it also has Xanax at home which she rarely uses. Patient states that at work she felt lightheaded and short of breath. Patient states she began having numbness and tingling in her fingertips and around her mouth. She had tightness in her chest so 911 was called. Patient denies recent travel no calf pain or swelling. Patient states she has been under tremendous amount of stress recently. Working 16 hours a day 2 jobs and also stress at home. Review of Systems Constitutional symptoms: Negative except as documented in HPI. Skin symptoms: Negative except as documented in HPI. Eye symptoms: Negative except as documented in HPI. ENMT symptoms: Negative except as documented in HPI. Respiratory symptoms: Shortness of breath, No cough, Cardiovascular symptoms: Chest pain, tachycardia, No palpitations, Gastrointestinal symptoms: Negative except as documented in HPI. Genitourinary symptoms: Negative except as documented in HPI. Musculoskeletal symptoms: Negative except as documented in HPI. Neurologic symptoms: Dizziness, numbness, tingling, No headache, Psychiatric symptoms: Anxiety, sleeping problems. Health Status Allergies: Allergic Reactions (Selected) Unknown Albuterol- No reactions were documented. Macrobid- No reactions were documented.. Medications: (Selected) Inpatient Medications Ordered Sodium Chloride 0.9% intravenous solution 500 mL: 20 mL/hr, IV Documented Medications Documented Metoprolol Tartrate 50 mg oral tablet: 50 mg = 1 tab(s), Oral, BID, 180 tab(s), 0 Refill(s) doxepin 10 mg oral capsule: 10 mg = 1 cap(s), Oral, TID, 90 cap(s), 0 Refill(s) meloxicam 15 mg oral tablet: 15 mg = 1 tab(s), Oral, Daily, 90 tab(s), 0 Refill(s) methylphenidate 20 mg oral tablet: 20 mg = 1 tab(s), Oral, BID, 0 Refill(s) modafinil 200 mg oral tablet: 200 mg = 1 tab(s), Oral, qAM, 90 tab(s), 0 Refill(s) omeprazole 40 mg oral delayed release capsule: 40 mg = 1 cap(s), Oral, Daily, 90 cap(s), 0 Refill(s) oxaprozin 600 mg oral tablet: 1,200 mg = 2 tab(s), Oral, Daily, 180 tab(s), 0 Refill(s) predniSONE 10 mg oral tablet: 10 mg = 1 tab(s), Oral, Daily, for 10 day(s), 10 tab(s), 0 Refill(s). Past Medical/ Family/ Social History Medical history: No active or resolved past medical history items have been selected or recorded.. Surgical history: No active procedure history items have been selected or recorded.. Family history: No family history items have been selected or recorded.. Social history: Social & Psychosocial Habits Alcohol 03/15/2024 Alcohol Use: Current Frequency: 1-2 times per year Substance Use 03/15/2024 Substance use: Never Tobacco 03/15/2024 Smoking tobacco use: Never tobacco user Electronic Cigarette/Vaping 03/15/2024 Electronic Cigarette Use: Never . Problem list: No qualifying data available . Physical Examination Vital Signs Vital Signs 03/15/2024 19:15 EDT Peripheral Pulse Rate 66 bpm Systolic Blood Pressure 131 mmHg Diastolic Blood Pressure 90 mmHg SpO2 100 % 03/15/2024 18:47 EDT SpO2 98 % Oxygen Therapy Room air 03/15/2024 18:19 EDT Temperature Temporal Artery 37 DegC Peripheral Pulse Rate 71 bpm Respiratory Rate 18 br/min Systolic Blood Pressure 146 mmHg HI Diastolic Blood Pressure 95 mmHg HI SpO2 98 % Oxygen Therapy Room air . Measurements 03/15/2024 18:19 EDT Height 167.64 cm Weight 92.99 kg Weight Dosing 92.990 kg Body Mass Index Measured 33.09 kg/m2 . General: Alert, no acute distress, Appears anxious. Skin: Warm, dry. Head: Normocephalic, atraumatic. Neck: Supple. Eye: Pupils are equal, round and reactive to light, normal conjunctiva. Ears, nose, mouth and throat: Oral mucosa moist. Cardiovascular: Regular rate and rhythm, No murmur. Respiratory: Lungs are clear to auscultation, respirations are non-labored. Gastrointestinal: Soft, Nontender, Non distended. Musculoskeletal: No calf swelling or tenderness. Neurological: Alert and oriented to person, place, time, and situation, normal speech observed. Lymphatics: No lymphadenopathy. Psychiatric: (more content not included)... [facility] ED Note-Nursingon 03-15-2024 ED Note-Nursing Patient presents to the ER via [facility] for shortness of breath, anxiety. Patient was at work and stated that she all of a sudden began to feel overwhelmed, short of breath, she sat down and could not catch her breath. Was tingling around her mouth and fingertips. Patient states she has been working a lot and is very tired, thinks things are just catching up with her. Vital signs are stable. Heart rate is 74 and regular. Pulse ox is 98% on room air. Upon EMS arrival, patient was hyperventilating, and they applied 02 via nasal cannula. 12 lead was regular in rate Normal [facility] ED Patient Summaryon 024 ED Patient Summary [facility] - Emergency Department [address] [place] [address] PATIENT DISCHARGE INSTRUCTIONS Patient Information Name: HORACIO KEATING Age: 48 Years Date of : 1975 Reason For Visit: Shortness of breath; Anxiety; Blood pressure check; SOB Arrival Time: 03/15/2024 17:56:51 Primary Care Physician: SAMI MARINELLI Attending Physician: Nicola Neff DO Comment: Visit Diagnosis: Diagnoses This Visit Anxiety ([id number]) Blood pressure check ([id number]) Hypertension (I10) Panic attack (F41.0) Shortness of breath ([id number]) Urinary tract infection (N39.0) The Pharmacy at [facility] is open Friday through Friday from 9A to 6P and Friday and Friday from 9A to 5P Prescription Information: If you have been given a prescription for narcotics, seek immediate medical attention if you have any difficulty breathing or any sudden status changes such as confusion and sleepiness. If you or anyone you know is experiencing suicidal thoughts, mental health, alcohol and/or drug addiction problems; contact the [facility] 23/06 Crisis Hotline -Text [id number] rx [phone]. If you received any narcotics, sedation, or any other medication that causes drowsiness for the next 24 hours, unless otherwise directed: ? Do not drive a car. ? Do not operate machinery such as power tools, lawn mowers, drills, sewing machines, or stoves ? Avoid alcoholic beverages and drugs for allergies, nerves, or sleep ? Do not make important personal or business decisions or sign any legal documents With: Address: When: SAMI MARINELLI [address] [place] [address] [place] [id number] Business (1) Within 3 to 5 days Comments: Call for follow up appointment Return if symptoms worsen Medication Information: The exam and treatment you received today in the [facility] Emergency Department were for an urgent problem and are not intended as complete care. It is important for you to follow up with a doctor, nurse practitioner, or physician?s respiratory care assistant for ongoing care. If your symptoms become worse or you do not improve as expected and you are unable to reach your usual health care provider, you should return to the Emergency Department, we are available 24 hours a day. For those patients who have received Radiology results, the interpretation of your X-ray as given to you by our Emergency Department physician is only a preliminary report. The Radiologist will review your films and if there is a change in the diagnosis you will be notified by phone. Please make sure you have provided a working phone number so we can reach you if necessary. In the event that you had a lab culture while you were a patient in the Emergency Department, you will be notified by phone if there is a need to change your antibiotic. Please make sure you have provided a working phone number so we can reach you if necessary. [facility] Emergency [facility] has provided you with a complete list of medications post discharge. Please inform your manager primary/provider of your visit and for further instruction on these medications. Any specific questions regarding your chronic medications and dosages should be discussed with your primary care physician(s) and/or pharmacist. New Medications Printed Prescriptions ALPRAZolam (Xanax 0.25 mg oral tablet) 1 tab(s) Oral (given by mouth) every 12 hours. Refills: 0. cephalexin (cephalexin 500 mg oral capsule) 1 cap(s) Oral (given by mouth) 4 times a day for 5 Days. Refills: 0. fluconazole (Diflucan 150 mg oral tablet) 1 tab(s) Oral (given by mouth) once. Take 1 tablet for first signs of a yeast infection. May repeat after 3 to 5 days if symptoms have not resolved. Refills: 0. Additional medications on your home medication list not specifically addressed. Please contact the ordering physician if you have questions about these medications. doxepin (doxepin 10 mg oral capsule) 1 cap(s) Oral (given by mouth) 3 times a day (scheduled). meloxicam (meloxicam 15 mg oral tablet) 1 tab(s) Oral (given by mouth) every day. methylphenidate (methylphenidate 20 mg oral tablet) 1 tab(s) Oral (given by mouth) 2 times a day (scheduled). metoprolol (Metoprolol Tartrate 50 mg oral tablet) 1 tab(s) Oral (given by mouth) 2 times a day (scheduled). modafinil (modafinil 200 mg oral tablet) 1 tab(s) Oral (given by mouth) once a day (in the morning). omeprazole (omeprazole 40 mg oral delayed release capsule) 1 cap(s) Oral (given by mouth) every day. oxaprozin (oxaprozin 600 mg oral tablet) 2 tab(s) Oral (given by mouth) every day. predniSONE (predniSONE 10 mg oral tablet) 1 tab(s) Oral (given by mouth) every day for 10 Days. Visit Information Allergies: Substance Reaction Symptoms Type Comments albuterol Drug Macrobid Drug Vital Signs: Vitals an (more content not included)... Normal [facility] 03-15-2024 Tube Collected Yes Invalid Interpretation Code [facility] Comment on above: Performed By: #### 5 [id number], [id number], [id number], [id number], [id number], 9864746, [id number] #### [facility] (DEFAULT) [address] [place] [address] 04842 Extra Redon 03-15-2024 Tube Collected Yes Invalid Interpretation Code [facility] Comment on above: Performed By: #### 5 [id number], [id number], [id number], [id number], [id number], 5634168, 0283959 #### [facility] (DEFAULT) [address] [place] [address] 01880 PTon 03-15-2024 INR Coag (PPP) [Relative time] 0.94 {INR} Normal 0.91-1.11 [facility] Comment on above: Performed By: #### 5 [id number], [id number], [id number], [id number], [id number], 9924536, 4583123 #### [facility] (DEFAULT) [address] [place] [address] PT 9.8 second(s) Normal 9.7-11.8 [facility] Comment on above: Performed By: #### 5 [id number], [id number], [id number], [id number], 7081129533, 6391050, 8394939 #### [facility] (DEFAULT) [address] [place] [address] 73072 TnI HSon 03-15-2024 Troponin I High Sensitivity 7.7 pg/mL Normal <=15.0 [facility] Comment on above: Performed By: #### 5 [id number], [id number], [id number], 89541626, [id number], 8770004, 2581923 #### [facility] (DEFAULT) [address] [place] [address] 71828 UA Thitv9wr 03-15-2024 UA Amorph. 1+ Normal [facility] Comment on above: Order Comment: Urina lysis Microscopic order added on by [employer] Rules system. Performed By: #### 5 [id number], [id number], [id number] ####[facility] (DEFAULT)[address] [place] [address] 52538 UA Bacteria 3+ Normal [facility] Comment on above: Order Comment: Urina lysis Microscopic order added on by [employer] Rules system. Performed By: #### 5 [id number], [id number], [id number] ####[facility] (DEFAULT)[address] [place] [address] UA Mucous 1+ [facility] Comment on above: Order Comment: Urina lysis Microscopic order added on by [employer] Rules system. Performed By: #### 5 [id number], [id number], [id number] ####[facility] (DEFAULT)[address] [place] [address] UA RBC 3-5 [facility] Comment on above: Order Comment: Urina lysis Microscopic order added on by [employer] Rules system. Performed By: #### 5 [id number], [id number], [id number] ####[facility] (DEFAULT)[address] [place], [place] [address] UA Renal Epi Rare [facility] Comment on above: Order Comment: Urina lysis Microscopic order added on by Discern Expert Rules system. Performed By: #### 5 [id number], [id number] ####[facility] (DEFAULT)[address] [place] [address] UA Squam Epi Many [facility] Comment on above: Order Comment: Urina lysis Microscopic order added on by Discern Expert Rules system. Performed By: #### 5 [id number], [id number], [id number] ####[facility] (DEFAULT)[address] [place] [address] UA WBC 3-5 [facility] Comment on above: Order Comment: Urina lysis Microscopic order added on by Discern Expert Rules system. Performed By: #### 5 [id number], [id number], [id number] ####[facility] (DEFAULT)[address] [place] [address] UA w Culture if Ind Standard on 03-15-2024 Breakpoint UA [facility] Comment on above: Performed By: #### 5 [id number], [id number] ####[facility] (DEFAULT)[address] [place] [address] Color (U) Yellow Normal [facility] Comment on above: Performed By: #### 5 [id number], [id number], [id number] ####[facility] (DEFAULT)[address] [place] [address] Culture? Indicated Invalid Interpretation Code [facility] Comment on above: Result Comment: Resu lt created by rule GL_MAGR_ADD_UA_CULT Result created by rule GL_MAGR_ADD_UA_CULT Result created by rule GL_MAGR_ADD_UA_CULT1 Result created by rule GL_MAGR_ADD_UA_CULT Performed By: #### 5 [id number], [id number], [id number] ####[facility] (DEFAULT)[address] [place] [address] Glucose (U) [Mass/Vol] Negative Normal [facility] Comment on above: Performed By: #### 5 [id number], [id number] ####[facility] (DEFAULT)[address] [place] [address] Ketones Ql (U) Negative [facility] Comment on above: Performed By: #### 5 [id number], [id number], [id number] ####[facility] (DEFAULT)[address] [place] [address] Micro? Indicated Invalid Interpretation Code [facility] Comment on above: Result Comment: Resu lt created by rule GL_MAGR_ADD_UA_MICRO Performed By: #### 5 [id number], [id number] ####[facility] (DEFAULT)[address] [place] [address] UA Bilirubin Negative Normal [facility] Comment on above: Performed By: #### 5 [id number], [id number], [id number] ####[facility] (DEFAULT)[address] [place] [address] UA Blood TRACE Abnormal NEGATIVE [facility] Comment on above: Performed By: #### 5 [id number], [id number], [id number] ####[facility] (DEFAULT)[address] [place] [address] UA Clarity SL CLOUDY Abnormal CLEAR [facility] Comment on above: Performed By: #### 5 [id number], [id number], [id number] ####[facility] (DEFAULT)[address] [place] [address] UA Leuk Est LARGE Abnormal NEGATIVE [facility] Comment on above: Performed By: #### 5 [id number], [id number], [id number] ####[facility] (DEFAULT)[address] [place] [address] UA Nitrite Negative Normal NEGATIVE [facility] Comment on above: Performed By: #### 5 [id number], [id number], [id number] ####[facility] (DEFAULT)[address] [place] [address] UA pH 6.0 Normal 5-8 [facility] Comment on above: Performed By: #### 5 [id number], [id number], [id number] ####[facility] (DEFAULT)[address] [place] [address] UA Protein Negative Normal NEGATIVE [facility] Comment on above: Performed By: #### 5 [id number], [id number], [id number] ####[facility] (DEFAULT)[address] [place] [address] UA Spec Grav 1.015 Normal 1.001-1.035 [facility] Comment on above: Performed By: #### 5 [id number], [id number], [id number] ####[facility] (DEFAULT)[address] [place] [address] UA Urobilinogen 0.2 mg/dL Normal 0.2-1.0 [facility] Comment on above: Performed By: #### 5 [id number], [id number], [id number] ####[facility] (DEFAULT)[address] [place] [address] Urine Source Clean Catch Normal [facility] Comment on above: Performed By: #### 5 [id number], [id number], [id number] ####[facility] (DEFAULT)[address] [place] [address]63 XR Chest 1 View Frontalon XR Chest 1 View Frontal CXR HISTORY: Chronic spine pain and hand pain. COMPARISON: None. TECHNIQUE: 1 view of the chest submitted for review. FINDINGS: Lines and tubes: None Lungs are hyperaerated. No acute infiltrate. No effusion. The cardiac silhouette measures within normal. Pulmonary vascularity is unremarkable. Osseous structures are normal for age. IMPRESSION: No plain film evidence for acute cardiopulmonary disease. Final Dictated by: Kayleigh Fu MD Dictated DT/TM: 03/15/24 7:33 Signed (Electronic Signature): Kayleigh Fu MD 03/15/24 7:34 pm Technologist: Lizzy BRICEÑO [facility] Basic Metabolic Panelon 08-01 Anion gap [Moles/Vol] 10.3 mmol/L Normal 6.0-15.0 [facility] Comment on above: Performed By: #### L IPID, BMP #### [facility] [address] [place] [address] [place] Calcium [Mass/Vol] 9.1 mg/dL Normal 8.6-10.3 [facility] Comment on above: Performed By: #### L IPID, BMP #### [facility] [address] [place] [id number] [place] Chloride [Moles/Vol] 107 mmol/L Normal 98-107 [facility] Comment on above: Performed By: #### L IPID, BMP #### [facility] [address] [place] [address] [place] CO2 [Moles/Vol] 26.7 mmol/L Normal 21.0-31.0 [facility] Comment on above: Performed By: #### L IPID, BMP #### [facility] [address] [place] [address] [place] Creatinine [Mass/Vol] 0.77 mg/dL Normal 0.60-1.20 [facility] Comment on above: Performed By: #### L IPID, BMP #### [facility] [address] [place] [id number] [place] GFR/1.73 sq M.predicted MDRD (S/P/Bld) [Vol rate/Area] mL/min/{1.73_m2} Normal [facility] Comment on above: Performed By: #### L IPID, BMP #### [facility] [address] Glucose [Mass/Vol] 97 mg/dL Normal 70-100 [facility] Comment on above: Result Comment: [place] Glucose Reference Range is dependent on time and content of last meal. Glucose of more than 200 mg/dL in a nonstressed, ambulatory subject supports the diagnosis of Diabetes Mellitus. ADA recommended reference range Performed By: #### L IPID, BMP #### [facility] [address] Potassium [Moles/Vol] 4.0 mmol/L Normal 3.5-5.1 [facility] Comment on above: Performed By: #### L IPID, BMP #### [facility] [address] [place] [address] [place] Sodium [Moles/Vol] 140 mmol/L Normal 136-145 [facility] Comment on above: Performed By: #### L IPID, BMP #### [facility] [address] [place] [address] [place] Urea nitrogen [Mass/Vol] 10 mg/dL Normal 7-25 [facility] Comment on above: Performed By: #### L IPID, BMP #### [facility] [address] [place] [address] [place] Calcium [Mass/volume] in Ser um or PlasmaOrdered By: Dedrick Fuller on 08-15-2023 Calcium [Mass/Vol] 9.1 mg/dL 8.6-10.3 [facility] Carbon dioxide, total [Moles /volume] in Serum or PlasmaOrdered By: Dedrick Fuller on 08-15-2023 CO2 [Moles/Vol] 26.7 mmol/L 21.0-31.0 [facility] Chloride [Moles/volume] in S altagracia or PlasmaOrdered By: Dedrick Fuller on 08-15-2023 Chloride [Moles/Vol] 107 mmol/L 98-107 [facility] Cholesterol [Mass/volume] in Serum or PlasmaOrdered By: Dedrick Fuller on 08-15-2023 Cholesterol [Mass/Vol] 166 mg/dL 140-200 [facility] Comment on above: Chol less than 200 m g/dl low riskChol 201-239 mg/dl borderline riskChol 240 mg/dl and greater high risk Cholesterol in LDL Calc [Mas s/Vol]Ordered By: Dedrick Fuller on 08-15-2023 Cholesterol in LDL [Mass/Vol] 95 mg/dL 0-100 [facility] Comment on above: LDL ATP III CLASSIFI CATIONLDL less than 100 mg/dL OptimalLDL 100-129 mg/dL Near or above optimalLDL 130-159 mg/dL Borderline highLDL 160-189 mg/dL HighLDL greater than 189 mg/dL Very high Cholesterol in VLDL Calc [Ma ss/Vol]Ordered By: Dedrick Fuller on 08-15-2023 Cholesterol in VLDL [Mass/Vol] 32 mg/dL [facility] Creatinine [Mass/volume] in Serum or PlasmaOrdered By: Dedrick Fuller on 08-15-2023 Creatinine [Mass/Vol] 0.77 mg/dL 0.60-1.20 [facility] Glucose [Mass/volume] in Ser um or PlasmaOrdered By: Dedrick Fuller on 08-15-2023 Glucose [Mass/Vol] 97 mg/dL 70-100 [facility] Comment on above: ADA recommended refe rence rangeRandom Glucose Reference Range is dependent on time and content of last meal. Glucose of more than 200 mg/dL in a nonstressed, ambulatory subject supports the diagnosis of Diabetes Mellitus. Lipid Panelon 08-15-2023 Cholesterol [Mass/Vol] 166 mg/dL Normal 140-200 [facility] Comment on above: Result Comment: Chol less than 200 mg/dl low risk Chol 201-239 mg/dl borderline risk Chol 240 mg/dl and greater high risk Performed By: #### L IPID, BMP #### [address] Cholesterol in HDL [Mass/Vol] 39 mg/dL Normal 23-92 [facility] Comment on above: Result Comment: HDL CHOL ATP-III CLASSIFICATION Cardiovascular Risk HDL > or equal to 60 mg/dL LOW HDL < 40 mg/dL HIGH Performed By: #### L IPID, BMP #### [facility] [address] [place] [address] Cholesterol.total/Mirta sterol in HDL [Mass ratio] 4.3 {ratio} Normal <5.0 [facility] Comment on above: Result Comment: PERF ORMED BY: [place] [address] PATHOLOGIST ACCOUNTING OFFICE MANAGER IRMA MARCELO M.D. Performed By: #### L IPID, BMP #### [facility] [address] LDL Cholesterol,Calculated 95 mg/dL Normal 0-100 [facility] Comment on above: Result Comment: LDL ATP III CLASSIFICATION LDL less than 100 mg/dL Optimal LDL 100-129 mg/dL Near or above optimal LDL 130-159 mg/dL Borderline high LDL 160-189 mg/dL High LDL greater than 189 mg/dL Very high Performed By: #### L IPID, BMP #### [facility] [address] [place] [address] Triglyceride w/Reflex 162 mg/dL High 0-149 [facility] Comment on above: Result Comment: TRIG ATP III CLASSIFICATION TRIG less than 150 mg/dL Normal TRIG 150-199 mg/dL Borderline high TRIG 200-500 mg/dL High TRIG greater than 500 mg/dL Very high Standard traceable to the Center for Disease Conrtrol and Prevention (CDC) test method. Performed By: #### L IPID, BMP #### [facility] [address] [place] [address] VLDL CHOLESTEROL 32 mg/dL Normal [facility] Comment on above: Performed By: #### L IPID, BMP #### [facility] [address] [place] [address] No Panel InformationOrdered By: Dedrick Fuller on 08-15-2023 Estimated GFR (CKD-EPI) > 60.0 mL/Min [facility] Creatinine Clearance (Chem N/A [facility] Potassium [Moles/volume] in Serum or PlasmaOrdered By: Dedrick Fuller on 08-15-2023 Potassium [Moles/Vol] 4.0 mmol/L 3.5-5.1 [facility] Serum or plasma anion gap de terminationOrdered By: Dedrick Fuller on 08-15-2023 Anion gap [Moles/Vol] 10.3 mmol/L 6.0-15.0 [facility] Serum or plasma high density lipoprotein (HDL) cholesterol measurementOrdered By: Dedrick Fuller on 08-15-2023 Cholesterol in HDL [Mass/Vol] 39 mg/dL 23-92 [facility] Comment on above: HDL CHOL ATP-III CLA SSIFICATION Cardiovascular RiskHDL > or equal to 60 mg/dL LOWHDL < 40 mg/dL HIGH Serum or plasma total choles terol/high density lipoprotein (HDL) cholesterol mass ratOrdered By: Dedrick Fuller on 08-15-2023 Cholesterol.total/Mirta sterol in HDL [Mass ratio] 4.3 {ratio} <5.0 [facility] Sodium [Moles/volume] in Ser um or PlasmaOrdered By: Dedrick Fuller on 08-15-2023 Sodium [Moles/Vol] 140 mmol/L 136-145 [facility] Triglyceride [Mass/volume] i n Serum or PlasmaOrdered By: Dedrick Fuller on 08-15-2023 Triglyceride [Mass/Vol] 162 mg/dL 0-149 [facility] Comment on above: TRIG ATP III CLASSIF ICATIONTRIG less than 150 mg/dL NormalTRIG 150-199 mg/dL Borderline highTRIG 200-500 mg/dL High TRIG greater than 500 mg/dL Very highStandard traceable to the Center for Disease Conrtrol and Prevention (CDC) test method. Urea nitrogen [Mass/volume] in Serum or PlasmaOrdered By: Dedrick Fuller on 08-15-2023 Urea nitrogen [Mass/Vol] 10 mg/dL 7 [facility] GTT 2 HRon 11-09-2022 Glucose [Mass/Vol] 107 mg/dL Critically high 74-106 [facility] Comment on above: Performed By: #### U LG, CRP #### [facility] [address] [address] [address] Soo Donnelly Glucose [Mass/Vol] 152 mg/dL Normal [facility] Comment on above: Performed By: #### U LG, CRP #### [facility] [address] [place], [place] [address] Dr. Soo Donnelly Glucose [Mass/Vol] 121 mg/dL Normal [facility] Comment on above: Performed By: #### U LG, CRP #### [facility] [address] [place], [place] [address] Dr. Soo Donnelly Facesheeton 11-05-2022 Facesheet [id number] .00CD:127 Normal [facility] Physician Referralon 022 Physician Referral [id number] .[id number]:[address] [facility] [address] ABD/PELV W CONon 10-01-20 CT ABD/PELV W CON EXAMINATION: CT ABD/PELV W CON HISTORY: Abdominal pain ; acute umbilical pain and burning sensation for one month; constipation COMPARISON: CT abdomen pelvis 05/20/2018 TECHNIQUE: Axial, Coronal, and Sagittal images were obtained without and/or with IV contrast as indicated by examination type. Dose reduction techniques were achieved by using automated exposure control and/or adjustment of mA and/or kV according to patient size and/or use of iterative reconstruction technique. FINDINGS: LUNG BASES: No visible pulmonary or pleural disease. LIVER: No enlargement, atrophy, suspicious density, or significant focal lesion. BILIARY: Cholecystectomy. PANCREAS: No lesion, fluid collection, or abnormal duct dilatation. SPLEEN: No enlargement or focal lesion. ADRENALS: No mass or enlargement. KIDNEYS: Stable benign-appearing right renal cyst. No mass, obstruction, or calcification. BOWEL/MESENTERY: No visible mass, obstruction, or bowel wall thickening. AORTA/VASCULAR: No aneurysm or dissection. RETROPERITONEUM: No mass or adenopathy. LYMPH NODES: No adenopathy. URINARY BLADDER: No visible focal wall thickening, lesion, or calculus. PELVIC ORGANS: No visible mass. Pelvic organs appropriate for patient age. ABDOMINAL WALL: Fat filled paraumbilical hernia 2.7 cm in length by 1.7 cm in diameter. Subcutaneous scarring anterior to lower pelvis consistent with prior . BONES: No bony lesion or fracture. OTHER: Negative. IMPRESSION: 1. Small, nonstrangulated fat filled periumbilical hernia which may contribute to patient's symptoms. No bowel involvement. 2. Unremarkable bowel. No additional findings to account for patient's symptoms. Electronically authenticated by: LUZ ELENA SAUCEDA Date: 2022-10-01 10:31 Normal [facility] CBC AUTO DIFFon 09-18-2022 BASO # 0.0 103/ul Normal 0.0-0.1 [facility] Comment on above: Performed By: #### A NAD #### [facility] [address] [place] [address] Dr. Soo Donnelly Basophils/100 WBC (Bld) 0.4 % Normal 0.2-2.0 [facility] Comment on above: Performed By: #### A NAD #### [facility] [address] [place] [address] Dr. Soo Donnelly EO # 0.1 103/ul Normal 0.0-0.7 [facility] Comment on above: Performed By: #### A NAD #### [facility] [address] [place] [address] Dr. Soo Donnelly Eosinophils/100 WBC (Bld) 1.8 % Normal 0.9-7.0 [facility] Comment on above: Performed By: #### A NAD #### [facility] [address] [place] [address] Dr. Soo Donnelly Erythrocyte distribution width (RBC) [Ratio] 11.9 % Normal 11.0-15.0 [facility] Comment on above: Performed By: #### A NAD #### [facility] [address] [place] [address] Dr. Soo Donnelly Hematocrit (Bld) [Volume fraction] 43.9 % Normal 36.0-48.0 [facility] Comment on above: Performed By: #### A NAD #### [facility] [address] [place] [address] Dr. Soo Donnelly Hemoglobin (Bld) [Mass/Vol] 14.6 g/dL Normal 12.0-16.0 [facility] Comment on above: Performed By: #### A NAD #### [facility] [address] [place] [address] Dr. Soo Donnelly IG # 0.01 10e3/ul Normal 0.00-0.03 [facility] Comment on above: Performed By: #### A NAD #### [facility] [address] [place] [address] Dr. Soo Donnelly IG % 0.1 % Normal 0.0-0.5 [facility] Comment on above: Performed By: #### A NAD #### [facility] [address] [place] [address] Dr. Soo Donnelly LYMPH # 2.7 103/ul Normal 1.2-3.8 [facility] Comment on above: Performed By: #### A NAD #### [facility] [address] [place] [address] Dr. Soo Donnelly Lymphocytes/100 WBC (Bld) 39.9 % Normal 20.5-60.0 [facility] Comment on above: Performed By: #### A NAD #### [facility] [address] [place] [address] Dr. Soo Donnelly MANUAL DIFF REQ NO Normal [facility] Comment on above: Performed By: #### A NAD #### [facility] [address] [place] [address] Dr. Soo Donnelly MCH (RBC) [Entitic mass] 31.7 pg Normal 26.7-34.0 [facility] Comment on above: Performed By: #### A NAD #### [facility] [address] [place] [address] Dr. Soo Donnelly MCHC (RBC) [Mass/Vol] 33.3 g/dL Normal 29.9-35.2 [facility] Comment on above: Performed By: #### A NAD #### [facility] [address] [place] [address] Dr. Soo Donnelly MCV (RBC) [Entitic vol] 95.4 fL Normal 81.0-99.0 [facility] Comment on above: Performed By: #### A NAD #### [facility] [address] [place] [address] Dr. Soo Donnelly MONO # 0.4 103/ul Normal 0.3-0.8 [facility] Comment on above: Performed By: #### A NAD #### [facility] [address] [place] [address] Dr. Soo Donnelly Monocytes/100 WBC (Bld) 5.9 % Normal 1.7-12.0 [facility] Comment on above: Performed By: #### A NAD #### [facility] [address] [place] [address] Dr. Soo Donnelly NEUT # 3.5 103/ul Normal 1.4-6.5 [facility] Comment on above: Performed By: #### A NAD #### [facility] [address] [place] [address] Dr. Soo Donnelly Neutrophils/100 WBC (Bld) 51.9 % Normal 43.0-75.0 [facility] Comment on above: Performed By: #### A NAD #### [facility] [address] [place] [address] Dr. Soo Donnelly Platelet mean volume (Bld) [Entitic vol] 10.8 fL Normal 9.5-13.5 [facility] Comment on above: Performed By: #### A NAD #### [facility] [address] [place] [address] Dr. Soo Donnelly PLT 220 103/ul Normal 150-450 [facility] Comment on above: Performed By: #### A NAD #### [facility] [address] [place] [address] Dr. Soo Donnelly RBC 4.60 106/ul Normal 4.20-5.40 [facility] Comment on above: Performed By: #### A NAD #### [facility] [address] [place] [address] Dr. Soo Donnelly WBC 6.8 103/ul Normal 4.0-11.0 [facility] Comment on above: Performed By: #### A NAD #### [facility] [address] [place] [address] Dr. Soo Donnelly ER URINE PROFILEon 2 Bilirubin Ql (U) Negative Normal NEGATIVE [facility] Comment on above: Performed By: #### U LG, CRP #### [facility] [address] [place] [address] Dr. Soo Donnelly Clarity (U) CLEAR Normal CLEAR [facility] Comment on above: Performed By: #### U LG, CRP #### [facility] [address] [address] [address] Soo Donnelly Color (U) LT. YELLOW Normal YELLOW [facility] Comment on above: Performed By: #### U LG, CRP #### [facility] [address] [address] [address] Soo CORTEZ A micrscopic examination will be performed if indicated. Normal [facility] Comment on above: Performed By: #### U LG, CRP #### [facility] [address] [place] [address] Dr. Soo Donnelly Glucose Ql (U) Negative Normal NEGATIVE [facility] Comment on above: Performed By: #### U LG, CRP #### [facility] [address] [place] [address] Dr. Soo Donnelly Hemoglobin Ql (U) Negative Normal NEGATIVE [facility] Comment on above: Performed By: #### U LG, CRP #### [facility] [address] [place] [address] Dr. Soo Donnelly Ketones Ql (U) Negative Normal NEGATIVE [facility] Comment on above: Performed By: #### U LG, CRP #### [facility] [address] [address] [address] Soo Donnelly LEUKOCYTES Negative Normal NEGATIVE [facility] Comment on above: Performed By: #### U LG, CRP #### [facility] [address] [place] [address] Dr. Soo Donnelly Nitrite Ql (U) Negative Normal NEGATIVE [facility] Comment on above: Performed By: #### U LG, CRP #### [facility] [address] [place] [address] Dr. Soo Donnelly pH (U) 6.0 [pH] Normal 5-9 [facility] Comment on above: Performed By: #### U LG, CRP #### [facility] [address] [place] [address] Dr. Soo Donnelly SPEC GRAVITY 1.015 Normal 1.005-<=1.02 5 [facility] Comment on above: Performed By: #### U LG, CRP #### [facility] [address] [place] [address] Dr. Soo Donnelly UA PROTEIN Negative Normal NEGATIVE/ TRACE [facility] Comment on above: Performed By: #### U LG, CRP #### [facility] [address] [place] [address] Dr. Soo Donnelly UR MICRO IND NOT INDICATED Normal [facility] Comment on above: Performed By: #### U LG, CRP #### [facility] [address] [place] [address] Dr. Soo Donnelly Urobilinogen Qn (U) 0.2 {Roma'U}/dL Normal 0.2 - 1. 0 [facility] Comment on above: Performed By: #### U LG, CRP #### [facility] [address] [place] [address] Dr. Soo Donnelly PROF CHEM 8 (BAS METB)on Anion gap [Moles/Vol] 10.2 mmol/L Normal [facility] Comment on above: Performed By: #### B MP #### [facility] [address] [place] [address] Dr. Soo Donnelly Calcium [Mass/Vol] 8.7 mg/dL Normal 8.5-10.1 [facility] Comment on above: Performed By: #### B MP #### [facility] [address] [place] [address] Dr. Soo Donnelly Chloride [Moles/Vol] 103 mmol/L Normal 98-107 [facility] Comment on above: Performed By: #### B MP #### [facility] [address] [place] [address] Dr. Soo Donnelly CO2 [Moles/Vol] 27.9 mmol/L Normal 21.0-32.0 [facility] Comment on above: Performed By: #### B MP #### [facility] [address] [address] [address] Soo Donnelly Creatinine [Mass/Vol] 0.80 mg/dL Normal 0.55-1.02 [facility] Comment on above: Performed By: #### B MP #### [facility] [address] [address] [address] Soo Donnelly EGFR-AF NAURUAN >60 Normal >=60 [facility] Comment on above: Performed By: #### B MP #### [facility] [address] [address] [address] Soo Donnelly EGFR-NON AF NAURUAN >60 Normal >=60 [facility] Comment on above: Performed By: #### B MP #### [facility] [address] [place] [address] Dr. Soo Donnelly Glucose [Mass/Vol] 103 mg/dL Normal 74-106 [facility] Comment on above: Performed By: #### B MP #### [facility] [address] [address] [address] Soo Donnelly Potassium [Moles/Vol] 4.1 mmol/L Normal 3.5-5.1 [facility] Comment on above: Performed By: #### B MP #### [facility] [address] [place] [address] Dr. Soo Donnelly Sodium [Moles/Vol] 137 mmol/L Normal 136-145 [facility] Comment on above: Performed By: #### B MP #### [facility] [address] [address] [address] Soo Donnelly Urea nitrogen [Mass/Vol] 11.0 mg/dL Normal 7.0-18.0 [facility] Comment on above: Performed By: #### B MP #### [facility] [address] [address] [address] Soo Donnelly Urea nitrogen/Creatinine [Mass ratio] 13.8 mg/mg Normal [facility] Comment on above: Performed By: #### B MP #### [facility] [address] [address] [address] Soo Donnelly XR KUB 1 VIEWon 09-18-2022 XR KUB 1 VIEW EXAMINATION: XR KUB 1 VIEW HISTORY: Pain ; left lower quadrant / periumbilical pain for several weeks COMPARISON: No relevant comparison available. FINDINGS: BOWEL GAS PATTERN: No abnormal dilation or deviation. Small amount of stool throughout the colon. CALCIFICATIONS: Several small round calcifications within the right pelvis favoring phleboliths. OTHER: Negative. No abnormal gaseous collections. IMPRESSION: 1. No acute or suspicious findings to account for patient's symptoms. Electronically authenticated by: LUZ ELENA SAUCEDA Date: 2022-09-18 12:12 Normal [facility] MAMM SCREEN 3D DEAN CADon 09-12-2022 MG MAMM SCREEN 3D DEAN CAD Patient: HORACIO KEATING Exam Date: 09/12/2022 : 1975 Gender:F Ordering : DR AURA MURILLO . Admission #: [id number] Family : Order #: [id number] CLICK HERE TO VIEW EXAM RADIOLOGY REPORT PROCEDURE: MAMMOGRAM SCREENING 3D BILATERAL CAD COMPARISON: MAMM SCREEN 3D DEAN CAD, 07/26/2021. INDICATIONS: Screening mammography Calculator Name NCI Breast Cancer Risk Assessment Tool 5 Year Breast Cancer Risk 1.50% Lifetime Breast Cancer Risk 13.60% Personal Breast Cancer No Personal Ovarian Cancer No Treatments None Family Cancers Grandmother-maternal with breast cancer at age 64; Grandmother-paternal with ovarian cancer at age 76. LOCATION: [facility] BREAST COMPOSITION: Scattered areas fibroglandular density. FINDINGS: DIAGNOSTIC CATEGORY 1--NEGATIVE. NO CHANGE FROM COMPARISON ASSESSMENT. Scattered benign-appearing nodules are present. Scattered benign-appearing calcifications are present. Scattered benign-appearing lymph nodes are present. RIGHT BREAST: No significant suspicious finding. LEFT BREAST: No significant suspicious finding. Linear scar marker upper quadrant RECOMMENDATIONS: ROUTINE MAMMOGRAM AND CLINICAL EVALUATION IN 12 MONTHS. PLEASE NOTE: A NORMAL MAMMOGRAM DOES NOT EXCLUDE THE POSSIBILITY OF BREAST CANCER. A CLINICALLY SUSPICIOUS PALPABLE LUMP SHOULD BE BIOPSIED. Dictated by: Abigail Sheehan MD on 09/13/2022 at 07:44 Approved by: Abigail Sheehan MD on 09/13/2022 at 07:46 Normal [facility] INSULINon 07-20-2022 Insulin 25.5 uIU/mL Critically high 2.6-24.9 [facility] Comment on above: Performed By: #### U LG, CRP #### [facility] [address] [place] [address] Dr. Soo Donnelly T4 LABCORPon 07-20-2022 T4 [Mass/Vol] 7.4 ug/dL Normal 4.5-12.0 [facility] Comment on above: Performed By: #### A NAD #### [facility] [address] [place] [address] Dr. Soo Donnelly CBC W MANUAL DIFFon 07-19-20 22 ATYPICAL LYMPH # Normal [facility] Comment on above: Performed By: #### B UN, CREA #### [facility] [address] [place] [address] Dr. Soo Donnelly ATYPICAL LYMPH % Normal [facility] Comment on above: Performed By: #### B UN, CREA #### [facility] [address] [place] [address] Dr. Soo Donnelly BAND # Normal 0.0-0.3 [facility] Comment on above: Performed By: #### B UN, CREA #### [facility] [address] [place] [address] Dr. Soo Donnelly BAND % Normal 0-5 [facility] Comment on above: Performed By: #### B UN, CREA #### [facility] [address] [place] [address] Dr. Soo Donnelly BASOM # 0.00 103/ul Normal 0.00-0.10 [facility] Comment on above: Performed By: #### B UN, CREA #### [facility] [address] [place] [address] Dr. Soo Donnelly BASOM % 0.0 % Critically low 0.2-2.0 [facility] Comment on above: Performed By: #### B UN, CREA #### [facility] [address] [place] [address] Dr. Soo Donnelly BLAST # Normal [facility] Comment on above: Performed By: #### B UN, CREA #### [facility] [address] [place] [address] Dr. Soo Donnelly BLAST % Normal [facility] Comment on above: Performed By: #### B UN, CREA #### [facility] [address] [place] [address] Dr. Soo Donnelly CORRECTED WBC Normal 4.0-11.0 [facility] Comment on above: Performed By: #### B UN, CREA #### [facility] [address] [place] [address] Dr. Soo Donnelly EOS # 0.31 103/ul Normal 0.00-0.70 [facility] Comment on above: Performed By: #### B UN, CREA #### [facility] [address] [place] [address] Dr. Soo Donnelly EOS% 2.0 % Normal 0.9-7.0 [facility] Comment on above: Performed By: #### B UN, CREA #### [facility] [address] [place] [address] Dr. Soo Donnelly HCT 41.6 % Normal 36.0-48.0 [facility] Comment on above: Performed By: #### B UN, CREA #### [facility] [address] [place] [address] Dr. Soo Donnelly HGB 13.8 g/dl Normal 12.0-16.0 [facility] Comment on above: Performed By: #### B UN, CREA #### [facility] [address] [place] [address] Dr. Soo Donnelly LYMPHM # 5.27 103/ul Critically high 1.20-3.80 [facility] Comment on above: Performed By: #### B UN, CREA #### [facility] [address] [place] [address] Dr. Soo Donnelly LYMPHM% 34.0 % Normal 20.5-60.0 [facility] Comment on above: Performed By: #### B UN, CREA #### [facility] [address] [place] [address] Dr. Soo Donnelly MCH 31.5 pg Normal 26.7-34.0 [facility] Comment on above: Performed By: #### B UN, CREA #### [facility] [address] [place] [address] Dr. Soo Donnelly MCHC 33.2 g/dl Normal 29.9-35.2 [facility] Comment on above: Performed By: #### B UN, CREA #### [facility] [address] [place] [address] Dr. Soo Donnelly MCV 95.0 fL Normal 81.0-99.0 [facility] Comment on above: Performed By: #### B UN, CREA #### [facility] [address] [place] [address] Dr. Soo Donnelly METAMYELOCYTE # Normal [facility] Comment on above: Performed By: #### B UN, CREA #### [facility] [address] [place] [address] Dr. Soo Donnelly METAMYELOCYTE % Normal The [facility] Comment on above: Performed By: #### B UN, CREA #### [facility] [address] [place] [address] Dr. Soo Donnelly MONOM# 0.93 103/ul Critically high 0.30-0.80 [facility] Comment on above: Performed By: #### B UN, CREA #### [facility] [address] [place] [address] Dr. Soo Donnelly MONOM% 6.0 % Normal 1.7-12.0 [facility] Comment on above: Performed By: #### B UN, CREA #### [facility] [address] [place] [address] Dr. Soo Donnelly MPV 10.1 fL Normal 9.5-13.5 [facility] Comment on above: Performed By: #### B UN, CREA #### [facility] [address] [place] [address] Dr. Soo Donnelly MYELOCYTE # Normal [facility] Comment on above: Performed By: #### B UN, CREA #### [facility] [address] [place] [address] Dr. Soo Donnelly MYELOCYTE % Normal [facility] Comment on above: Performed By: #### B UN, CREA #### [facility] [address] [place] [address] Dr. Soo Donnelly NRBC Normal [facility] Comment on above: Performed By: #### B UN, CREA #### [facility] [address] [place] [address] Dr. Soo Donnelly PLT 260 103/ul Normal 150-450 [facility] Comment on above: Performed By: #### B UN, CREA #### [facility] [address] [place] [address] Dr. Soo Donnelly RBC 4.38 106/ul Normal 4.20-5.40 [facility] Comment on above: Performed By: #### B UN, CREA #### [facility] [address] [place] [address] Dr. Soo Donnelly RDW 12.5 % Normal 11.0-15.0 [facility] Comment on above: Performed By: #### B UN, CREA #### [facility] [address] [place] [address] Dr. Soo Donnelly SEG # 8.99 103/ul Critically high 1.40-6.50 [facility] Comment on above: Performed By: #### B UN, CREA #### [facility] [address] [place] [address] Dr. Soo Donnelly SEG % 58.0 % Normal 43.0-75.0 [facility] Comment on above: Performed By: #### B UN, CREA #### [facility] [address] [place] [address] Dr. Soo Donnelly WBC 15.5 103/ul Critically high 4.0-11.0 [facility] Comment on above: Performed By: #### B UN, CREA #### [facility] [address] [place] [address] Dr. Soo Donnelly FREE T3on 07-19-2022 FREE T3 2.62 pg/mlL Normal 2.18-3.98 [facility] Comment on above: Performed By: #### U LG, CRP #### [facility] [address] [address] [address] Soo Donnelly GLYCOHEMOGLOBIN A1Con 2021 ADA RECOMMENDATION SEE BELOW Normal [facility] Comment on above: Result Comment: ADA RECOMMENDED LIMIT 4.0 - 6.0 ADA THERAPEUTIC TARGET < 7.0 ACTION SUGGESTED > 7.0 Performed By: #### U LG, CRP #### [facility] [address] [address] [address] Soo Donnelly Glucose [Mass/Vol] 137 mg/dL Normal [facility] Comment on above: Performed By: #### U LG, CRP #### [facility] [address] [address] [address] Soo Donnelly HbA1c (Bld) [Mass fraction] 6.4 % Critically high 4.5-6.2 [facility] Comment on above: Performed By: #### U LG, CRP #### [facility] [address] [address] [address] Soo Donnelly LIPID PROFILEon 07-19-2022 CHOL-HDL RATIO NORM SEE BELOW Normal [facility] Comment on above: Result Comment: 3.3 - 4.4 LOW RISK 4.4 - 7.1 AVERAGE RISK 7.1 - 11.0 MODERATE RISK >11.0 HIGH RISK Performed By: #### U LG, CRP #### [facility] [address] [address] [address] Soo Donnelly Cholesterol [Mass/Vol] 226 mg/dL Critically high <=200 [facility] Comment on above: Performed By: #### U LG, CRP #### [facility] [address] [address] [address] Soo Donnelly Cholesterol in HDL [Mass/Vol] 33 mg/dL Critically low 40-60 [facility] Comment on above: Performed By: #### U LG, CRP #### [facility] [address] [address] [address] Soo Donnelly Cholesterol in LDL [Mass/Vol] 135.2 mg/dL Normal [facility] Comment on above: Performed By: #### U LG, CRP #### [facility] [address] [address] [address] Soo Donnelly Cholesterol.total/Mirta sterol in HDL [Mass ratio] 6.8 {ratio} Normal [facility] Comment on above: Performed By: #### U LG, CRP #### [facility] [address] [address] [address] Soo Donnelly HDL NORMAL > or = 60 mg/dl - LO W CARDIOVASCULAR RISK <40 mg/dl - HIGH CARDIOVASCULAR RISK Normal [facility] Comment on above: Performed By: #### U LG, CRP #### [facility] [address] [address] [address] Soo Donnelly LDL CALC NORMAL SEE BELOW Normal [facility] Comment on above: Result Comment: <100 mg/dl OPTIMAL 100 - 129 mg/dl NEAR OR ABOVE OPTIMAL 130 - 159 mg/dl BORDERLINE HIGH 160 - 189 mg/dl HIGH >190 mg/dl VERY HIGH Performed By: #### U LG, CRP #### [facility] [address] [address] [address] Soo Donnelly Triglyceride [Mass/Vol] 289 mg/dL Critically high <=150 [facility] Comment on above: Performed By: #### U LG, CRP #### [facility] [address] [address] [address] Soo Donnelly VLDL CALC 57.8 mg/dL Normal [facility] Comment on above: Performed By: #### U LG, CRP #### [facility] [address] [address] [address] Soo Donnelly PROF 14(COMP METB)on 022 Albumin [Mass/Vol] 3.2 g/dL Critically low 3.4-5.0 [facility] Comment on above: Performed By: #### U LG, CRP #### [facility] [address] [address] [address] Soo Donnelly Albumin/Globulin [Mass ratio] 1.1 {ratio} Normal [facility] Comment on above: Performed By: #### U LG, CRP #### [facility] [address] [address] [address] Soo Donnelly ALP [Catalytic activity/Vol] 41 U/L Critically low 46-116 [facility] Comment on above: Performed By: #### U LG, CRP #### [facility] [address] [address] [address] Soo Donnelly ALT [Catalytic activity/Vol] 46 U/L Normal 14-59 [facility] Comment on above: Performed By: #### U LG, CRP #### [facility] [address] [address] [address] Soo Donnelly Anion gap [Moles/Vol] 9.3 mmol/L Normal [facility] Comment on above: Performed By: #### U LG, CRP #### [facility] [address] [address] [address] Soo Donnelly AST [Catalytic activity/Vol] 18 U/L Normal 15-37 [facility] Comment on above: Performed By: #### U LG, CRP #### [facility] [address] [address] [address] Soo Donnelly Bilirubin [Mass/Vol] 0.7 mg/dL Normal 0.2-1.0 [facility] Comment on above: Performed By: #### U LG, CRP #### [facility] [address] [address] [address] Soo Donnelly Calcium [Mass/Vol] 8.1 mg/dL Critically low 8.5-10.1 [facility] Comment on above: Performed By: #### U LG, CRP #### [facility] [address] [address] [address] Soo Donnelly Chloride [Moles/Vol] 101 mmol/L Normal 98-107 [facility] Comment on above: Performed By: #### U LG, CRP #### [facility] [address] [address] [address] Soo Donnelly CO2 [Moles/Vol] 31.1 mmol/L Normal 21.0-32.0 [facility] Comment on above: Performed By: #### U LG, CRP #### [facility] [address] [address] [address] Soo Donnelly Creatinine [Mass/Vol] 0.77 mg/dL Normal 0.55-1.02 [facility] Comment on above: Performed By: #### U LG, CRP #### [facility] [address] [address] [address] Soo Donnelly EGFR-AF NAURUAN >60 Normal >=60 [facility] Comment on above: Performed By: #### U LG, CRP #### [facility] [address] [address] [address] Soo Donnelly EGFR-NON AF NAURUAN >60 Normal >=60 [facility] Comment on above: Performed By: #### U LG, CRP #### [facility] [address] [address] [address] Soo Donnelly Globulin (S) [Mass/Vol] 3.0 g/dL Normal T [facility] Comment on above: Performed By: #### U LG, CRP #### [facility] [address] [address] [address] Soo Donnelly Glucose [Mass/Vol] 104 mg/dL Normal 74-106 [facility] Comment on above: Performed By: #### U LG, CRP #### [facility] [address] [address] [address] Soo Donnelly Potassium [Moles/Vol] 3.4 mmol/L Critically low 3.5-5.1 [facility] Comment on above: Performed By: #### U LG, CRP #### [facility] [address] [address] [address] Soo Donnelly Protein [Mass/Vol] 6.2 g/dL Critically low 6.4-8.2 [facility] Comment on above: Performed By: #### U LG, CRP #### [facility] [address] [address] [address] Soo Donnelly Sodium [Moles/Vol] 138 mmol/L Normal 136-145 [facility] Comment on above: Performed By: #### U LG, CRP #### [facility] [address] [address] [address] Soo Donnelly Urea nitrogen [Mass/Vol] 16.0 mg/dL Normal 7.0-18.0 [facility] Comment on above: Performed By: #### U LG, CRP #### [facility] [address] [address] [address] Soo Donnelly Urea nitrogen/Creatinine [Mass ratio] 20.8 mg/mg Normal [facility] Comment on above: Performed By: #### U LG, CRP #### [facility] [address] [address] [address] Soo Donnelly TSHon 07-19-2022 TSH 3.262 uIU/mL Normal 0.358-3.740 [facility] Comment on above: Performed By: #### U LG, CRP #### [facility] [address] [place] [address] Dr. Soo Donnelly CBC AUTO DIFFon 05-18-2022 BASO # 0.0 103/ul Normal 0.0-0.1 [facility] Comment on above: Performed By: #### U LG, CRP #### [facility] [address] [address] [address] Soo Donnelly Basophils/100 WBC (Bld) 0.2 % Normal 0.2-2.0 [facility] Comment on above: Performed By: #### U LG, CRP #### [facility] [address] [address] [address] Soo Donnelly EO # 0.0 103/ul Normal 0.0-0.7 [facility] Comment on above: Performed By: #### U LG, CRP #### [facility] [address] [address] [address] Soo Donnelly Eosinophils/100 WBC (Bld) 0.2 % Critically low 0.9-7.0 [facility] Comment on above: Performed By: #### U LG, CRP #### [facility] [address] [address] [address] Soo Donnelly Erythrocyte distribution width (RBC) [Ratio] 12.8 % Normal 11.0-15.0 [facility] Comment on above: Performed By: #### U LG, CRP #### [facility] [address] [place] [address] Dr. Soo Donnelly Hematocrit (Bld) [Volume fraction] 35.7 % Critically low 36.0-48.0 [facility] Comment on above: Performed By: #### U LG, CRP #### [facility] [address] [place] [address] Dr. Soo Donnelly Hemoglobin (Bld) [Mass/Vol] 11.5 g/dL Critically low 12.0-16.0 [facility] Comment on above: Performed By: #### U LG, CRP #### [facility] [address] [place] [address] Dr. Soo Donnelly IG # 0.07 10e3/ul Critically high 0.00-0.03 [facility] Comment on above: Performed By: #### U LG, CRP #### [facility] [address] [place] [address] Dr. Soo Donnelly IG % 0.5 % Normal 0.0-0.5 [facility] Comment on above: Performed By: #### U LG, CRP #### [facility] [address] [place] [address] Dr. Soo Donnelly LYMPH # 4.1 103/ul Critically high 1.2-3.8 [facility] Comment on above: Performed By: #### U LG, CRP #### [facility] [address] [place] [address] Dr. Soo Donnelly Lymphocytes/100 WBC (Bld) 28.3 % Normal 20.5-60.0 [facility] Comment on above: Performed By: #### U LG, CRP #### [facility] [address] [place] [address] Dr. Soo Donnelly MANUAL DIFF REQ NO Normal [facility] Comment on above: Performed By: #### U LG, CRP #### [facility] [address] [place] [address] Dr. Soo Donnelly MCH (RBC) [Entitic mass] 31.7 pg Normal 26.7-34.0 [facility] Comment on above: Performed By: #### U LG, CRP #### [facility] [address] [place] [address] Dr. Soo Donnelly MCHC (RBC) [Mass/Vol] 32.2 g/dL Normal 29.9-35.2 [facility] Comment on above: Performed By: #### U LG, CRP #### [facility] [address] [place] [address] Dr. Soo Donnelly MCV (RBC) [Entitic vol] 98.3 fL Normal 81.0-99.0 [facility] Comment on above: Performed By: #### U LG, CRP #### [facility] [address] [place] [address] Dr. Soo Donnelly MONO # 0.8 103/ul Normal 0.3-0.8 [facility] Comment on above: Performed By: #### U LG, CRP #### [facility] [address] [place] [address] Dr. Soo Donnelly Monocytes/100 WBC (Bld) 5.6 % Normal 1.7-12.0 [facility] Comment on above: Performed By: #### U LG, CRP #### [facility] [address] [place] [address] Dr. Soo Donnelly NEUT # 9.4 103/ul Critically high 1.4-6.5 [facility] Comment on above: Performed By: #### U LG, CRP #### [facility] [facility] [address] [place] [address] Dr. Soo Donnelly Neutrophils/100 WBC (Bld) 65.2 % Normal 43.0-75.0 [facility] Comment on above: Performed By: #### U LG, CRP #### [facility] [address] [place] [address] Dr. Soo Donnelly Platelet mean volume (Bld) [Entitic vol] 10.8 fL Normal 9.5-13.5 [facility] Comment on above: Performed By: #### U LG, CRP #### [facility] [address] [address] [address] Soo Donnelly PLT 191 103/ul Normal 150-450 [facility] Comment on above: Performed By: #### U LG, CRP #### [facility] [address] [address] [address] Soo Donnelly RBC 3.63 106/ul Critically low 4.20-5.40 The [facility] Comment on above: Performed By: #### U LG, CRP #### [facility] [address] [address] [address] Soo Donnelly WBC 14.4 103/ul Critically high 4.0-11.0 [facility] Comment on above: Performed By: #### U LG, CRP #### [facility] [address] [place] [address] Dr. Soo Donnelly BUNon 05-17-2022 Urea nitrogen [Mass/Vol] 8.0 mg/dL Normal 7.0-18.0 [facility] Comment on above: Performed By: #### B UN, CREA #### [facility] [address] [place] [address] Dr. Soo Donnelly CBC AUTO DIFFon 05-17-2022 BASO # 0.0 103/ul Normal 0.0-0.1 [facility] Comment on above: Performed By: #### U LG, CRP #### [facility] [address] [place] [address] Dr. Soo Donnelly Basophils/100 WBC (Bld) 0.1 % Critically low 0.2-2.0 [facility] Comment on above: Performed By: #### U LG, CRP #### [facility] [address] [place] [address] Dr. Soo Donnelly EO # 0.0 103/ul Normal 0.0-0.7 [facility] Comment on above: Performed By: #### U LG, CRP #### [facility] [address] [place] [address] Dr. Soo Donnelly Eosinophils/100 WBC (Bld) 0.0 % Critically low 0.9-7.0 [facility] Comment on above: Performed By: #### U LG, CRP #### [facility] [address] [address] [address] Soo Donnelly Erythrocyte distribution width (RBC) [Ratio] 12.5 % Normal 11.0-15.0 [facility] Comment on above: Performed By: #### U LG, CRP #### [facility] [address] [place] [address] Dr. Soo Donnelly Hematocrit (Bld) [Volume fraction] 38.5 % Normal 36.0-48.0 [facility] Comment on above: Performed By: #### U LG, CRP #### [facility] [address] [address] [address] Soo Donnelly Hemoglobin (Bld) [Mass/Vol] 13.0 g/dL Normal 12.0-16.0 [facility] Comment on above: Performed By: #### U LG, CRP #### [facility] [address] [place] [address] Dr. Soo Donnelly IG # 0.16 10e3/ul Critically high 0.00-0.03 [facility] Comment on above: Performed By: #### U LG, CRP #### [facility] [address] [place] [address] Dr. Soo Donnelly IG % 0.7 % Critically high 0.0-0.5 [facility] Comment on above: Performed By: #### U LG, CRP #### [facility] [address] [address] [address] Soo Donnelly LYMPH # 3.0 103/ul Normal 1.2-3.8 [facility] Comment on above: Performed By: #### U LG, CRP #### [facility] [address] [address] [address] Soo Donnelly Lymphocytes/100 WBC (Bld) 12.2 % Critically low 20.5-60.0 [facility] Comment on above: Performed By: #### U LG, CRP #### [facility] [address] [place] [address] Dr. Soo Donnelly MANUAL DIFF REQ NO Normal [facility] Comment on above: Performed By: #### U LG, CRP #### [facility] [address] [address] [address] Soo Donnelly MCH (RBC) [Entitic mass] 32.4 pg Normal 26.7-34.0 [facility] Comment on above: Performed By: #### U LG, CRP #### [facility] [address] [place] [address] Dr. Soo Donnelly MCHC (RBC) [Mass/Vol] 33.8 g/dL Normal 29.9-35.2 [facility] Comment on above: Performed By: #### U LG, CRP #### [facility] [address] [place] [address] Dr. Soo Donnelly MCV (RBC) [Entitic vol] 96.0 fL Normal 81.0-99.0 [facility] Comment on above: Performed By: #### U LG, CRP #### [facility] [address] [place] [address] Dr. Soo Donnelly MONO # 1.3 103/ul Critically high 0.3-0.8 [facility] Comment on above: Performed By: #### U LG, CRP #### [facility] [address] [place] [address] Dr. Soo Donnelly Monocytes/100 WBC (Bld) 5.4 % Normal 1.7-12.0 [facility] Comment on above: Performed By: #### U LG, CRP #### [facility] [address] [place] [address] Dr. Soo Donnelly NEUT # 19.8 103/ul Critically high 1.4-6.5 [facility] Comment on above: Performed By: #### U LG, CRP #### [facility] [address] [place] [address] Dr. Soo Donnelly Neutrophils/100 WBC (Bld) 81.6 % Critically high 43.0-75.0 [facility] Comment on above: Performed By: #### U LG, CRP #### [facility] [address] [place] [address] Dr. Soo Donnelly Platelet mean volume (Bld) [Entitic vol] 10.5 fL Normal 9.5-13.5 [facility] Comment on above: Performed By: #### U LG, CRP #### [facility] [address] [address] [address] Soo Donnelly PLT 253 103/ul Normal 150-450 [facility] Comment on above: Performed By: #### U LG, CRP #### [facility] [address] [address] [address] Soo Donnelly RBC 4.01 106/ul Critically low 4.20-5.40 [facility] Comment on above: Performed By: #### U LG, CRP #### [facility] [address] [place] [address] Dr. Soo Donnelly WBC 24.3 103/ul Critically high 4.0-11.0 [facility] Comment on above: Performed By: #### U LG, CRP #### [facility] [address] [place] [address] Dr. Soo Donnelly BASO # 0.0 103/ul Normal 0.0-0.1 [facility] Comment on above: Performed By: #### U LG, CRP #### [facility] [address] [place] [address] Dr. Soo Donnelly Basophils/100 WBC (Bld) 0.1 % Critically low 0.2-2.0 [facility] Comment on above: Performed By: #### U LG, CRP #### [facility] [address] [address] [address] Soo Donnelly EO # 0.0 103/ul Normal 0.0-0.7 [facility] Comment on above: Performed By: #### U LG, CRP #### [facility] [address] [address] [address] Soo Donnelly Eosinophils/100 WBC (Bld) 0.0 % Critically low 0.9-7.0 [facility] Comment on above: Performed By: #### U LG, CRP #### [facility] [address] [place] [address] Dr. Soo Donnelly Erythrocyte distribution width (RBC) [Ratio] 12.3 % Normal 11.0-15.0 [facility] Comment on above: Performed By: #### U LG, CRP #### [facility] [address] [place] [address] Dr. Soo Donnelly Hematocrit (Bld) [Volume fraction] 41.2 % Normal 36.0-48.0 [facility] Comment on above: Performed By: #### U LG, CRP #### [facility] [address] [place] [address] Dr. Soo Donnelly Hemoglobin (Bld) [Mass/Vol] 13.5 g/dL Normal 12.0-16.0 [facility] Comment on above: Performed By: #### U LG, CRP #### [facility] [address] [place] [address] Dr. Soo Donnelly IG # 0.11 10e3/ul Critically high 0.00-0.03 [facility] Comment on above: Performed By: #### U LG, CRP #### [facility] [address] [place] [address] Dr. Soo Donnelly IG % 0.5 % Normal 0.0-0.5 [facility] Comment on above: Performed By: #### U LG, CRP #### [facility] [address] [place] [address] Dr. Soo Donnelly LYMPH # 1.6 103/ul Normal 1.2-3.8 [facility] Comment on above: Performed By: #### U LG, CRP #### [facility] [address] [place] [address] Dr. Soo Donnelly Lymphocytes/100 WBC (Bld) 7.8 % Critically low 20.5-60.0 [facility] Comment on above: Performed By: #### U LG, CRP #### [facility] [address] [place] [address] Dr. Soo Donnelly MANUAL DIFF REQ NO Normal The [facility] Comment on above: Performed By: #### U LG, CRP #### [facility] [address] [place] [address] Dr. Soo Donnelly MCH (RBC) [Entitic mass] 31.8 pg Normal 26.7-34.0 [facility] Comment on above: Performed By: #### U LG, CRP #### [facility] [address] [place] [address] Dr. Soo Donnelly MCHC (RBC) [Mass/Vol] 32.8 g/dL Normal 29.9-35.2 [facility] Comment on above: Performed By: #### U LG, CRP #### [facility] [address] [place] [address] Dr. Soo Donnelly MCV (RBC) [Entitic vol] 96.9 fL Normal 81.0-99.0 [facility] Comment on above: Performed By: #### U LG, CRP #### [facility] [address] [place] [address] Dr. Soo Donnelly MONO # 0.4 103/ul Normal 0.3-0.8 [facility] Comment on above: Performed By: #### U LG, CRP #### [facility] [address] [place] [address] Dr. Soo Donnelly Monocytes/100 WBC (Bld) 2.0 % Normal 1.7-12.0 [facility] Comment on above: Performed By: #### U LG, CRP #### [facility] [address] [place] [address] Dr. Soo Donnelly NEUT # 18.1 103/ul Critically high 1.4-6.5 [facility] Comment on above: Performed By: #### U LG, CRP #### [facility] [address] [place] [address] Dr. Soo Donnelly Neutrophils/100 WBC (Bld) 89.6 % Critically high 43.0-75.0 [facility] Comment on above: Performed By: #### U LG, CRP #### [facility] [address] [place] [address] Dr. Soo Donnelly Platelet mean volume (Bld) [Entitic vol] 11.0 fL Normal 9.5-13.5 [facility] Comment on above: Performed By: #### U LG, CRP #### [facility] [address] [address] [address] Soo Donnelly PLT 223 103/ul Normal 150-450 [facility] Comment on above: Performed By: #### U LG, CRP #### [facility] [address] [place] [address] Dr. Soo Donnelly RBC 4.25 106/ul Normal 4.20-5.40 [facility] Comment on above: Performed By: #### U LG, CRP #### [facility] [address] [address] [address] Soo Donnelly WBC 20.2 103/ul Critically high 4.0-11.0 [facility] Comment on above: Performed By: #### U LG, CRP #### [facility] [address] [place] [address] Dr. Soo Donnelly CREATININEon 05-17-2022 Creatinine [Mass/Vol] 0.97 mg/dL Normal 0.55-1.02 [facility] Comment on above: Performed By: #### B UN, CREA #### [facility] [address] [place] [address] Dr. Soo Donnelly EGFR-AF NAURUAN >60 Normal >=60 [facility] Comment on above: Performed By: #### B UN, CREA #### [facility] [address] [place] [address] Dr. Soo Donnelly EGFR-NON AF NAURUAN >60 Normal >=60 [facility] Comment on above: Performed By: #### B UN, CREA #### [facility] [address] [place] [address] Dr. Soo Donnelly CTA CHEST WO W CONon 022 CTA CHEST WO W CON EXAMINATION: CTA CHEST WO W CON HISTORY: SHORTNESS OF BREATH ; postop hysterectomy x1 day COMPARISON: No relevant comparison available. TECHNIQUE: Multi-planar CT images were created with IV contrast. Axial, Coronal, and Sagittal images. Dose reduction techniques were achieved by using automated exposure control and/or adjustment of mA and/or kV according to patient size and/or use of iterative reconstruction technique. 3-D reconstruction was performed on a separate workstation. FINDINGS: VASCULATURE: No pulmonary embolism or abnormal opacity. LUNGS: No visible pulmonary disease. PLEURA: No mass, effusion, or pneumothorax. LA: No mass or adenopathy. MEDIASTINUM: No mass or adenopathy. CARDIAC: No enlargement, pericardial effusion, or pericardial thickening. AORTA: No aneurysm or dissection. CHEST WALL: No mass or axillary adenopathy. BONES: No bone lesion or fracture. LIMITED ABDOMEN: Trace amount of free air consistent with recent hysterectomy. Limited images of the upper abdomen. OTHER: Negative. IMPRESSION: 1. No pulmonary embolus. 2. No pulmonary infiltrates or acute/suspicious process. 3. Trace amount of free air within the peritoneal cavity consistent with recent hysterectomy. Electronically authenticated by: LUZ ELENA SAUCEDA Date: 2022-05-17 16:40 Normal [facility] XR CHEST 2 Von 05-17-2022 XR CHEST 2 V EXAM: XR CHEST 2 V 05/17/2022 3:46 PM. HISTORY: Chest pain with tightness on inspiration for the past 2 days. SHORTNESS OF BREATH COMPARISON: Chest CT 12/10/2016. TECHNIQUE: A PA and lateral chest examination was performed. FINDINGS: The heart appears within normal limits in size. No focal consolidation, pleural effusion, pneumothorax or evidence of congestive heart failure seen. There is mild multilevel discogenic disease of the thoracic spine. IMPRESSION: No radiographic evidence of active cardiopulmonary disease is seen. Electronically authenticated by: SAMI JOENS Date: 2022-05-17 16:10 Normal [facility] CBC AUTO DIFFon 05-16-2022 BASO # 0.1 103/ul Normal 0.0-0.1 [facility] Comment on above: Performed By: #### B CRERavi #### [facility] [address] [address] [address] Soo Donnelly Basophils/100 WBC (Bld) 0.5 % Normal 0.2-2.0 [facility] Comment on above: Performed By: #### B JOANNA CRERavi #### [facility] [address] [address] [address] Soo Donnelly EO # 0.1 103/ul Normal 0.0-0.7 [facility] Comment on above: Performed By: #### B UN, CREA #### [facility] [address] [place] [address] Dr. Soo Donnelly Eosinophils/100 WBC (Bld) 1.0 % Normal 0.9-7.0 [facility] Comment on above: Performed By: #### B UN, CREA #### [facility] [address] [place] [address] Dr. Soo Donnelly Erythrocyte distribution width (RBC) [Ratio] 12.2 % Normal 11.0-15.0 [facility] Comment on above: Performed By: #### B UN, CREA #### [facility] [address] [place] [address] Dr. Soo Donnelly Hematocrit (Bld) [Volume fraction] 41.2 % Normal 36.0-48.0 [facility] Comment on above: Performed By: #### B UN, CREA #### [facility] [address] [place] [address] Dr. Soo Donnelly Hemoglobin (Bld) [Mass/Vol] 13.9 g/dL Normal 12.0-16.0 [facility] Comment on above: Performed By: #### B UN, CREA #### [facility] [address] [place] [address] Dr. Soo Donnelly IG # 0.04 10e3/ul Critically high 0.00-0.03 [facility] Comment on above: Performed By: #### B UN, CREA #### [facility] [address] [place] [address] Dr. Soo Donnelly IG % 0.4 % Normal 0.0-0.5 [facility] Comment on above: Performed By: #### B UN, CREA #### [facility] [address] [place] [address] Dr. Soo Donnelly LYMPH # 3.5 103/ul Normal 1.2-3.8 [facility] Comment on above: Performed By: #### B UN, CREA #### [facility] [address] [place] [address] Dr. Soo Donnelly Lymphocytes/100 WBC (Bld) 35.3 % Normal 20.5-60.0 [facility] Comment on above: Performed By: #### B UN, CREA #### [facility] [address] [place] [address] Dr. Soo Donnelly MANUAL DIFF REQ NO Normal [facility] Comment on above: Performed By: #### B UN, CREA #### [facility] [address] [place] [address] Dr. Soo Donnelly MCH (RBC) [Entitic mass] 31.7 pg Normal 26.7-34.0 [facility] Comment on above: Performed By: #### B UN, CREA #### [facility] [address] [place] [address] Dr. Soo Donnelly MCHC (RBC) [Mass/Vol] 33.7 g/dL Normal 29.9-35.2 [facility] Comment on above: Performed By: #### B UN, CREA #### [facility] [address] [place] [address] Dr. Soo Donnelly MCV (RBC) [Entitic vol] 94.1 fL Normal 81.0-99.0 [facility] Comment on above: Performed By: #### B UN, CREA #### [facility] [address] [place] [address] Dr. Soo Donnelly MONO # 0.5 103/ul Normal 0.3-0.8 [facility] Comment on above: Performed By: #### B UN, CREA #### [facility] [address] [place] [address] Dr. Soo Donnelly Monocytes/100 WBC (Bld) 5.4 % Normal 1.7-12.0 [facility] Comment on above: Performed By: #### B UN, CREA #### [facility] [address] [place] [address] Dr. Soo Donnelly NEUT # 5.6 103/ul Normal 1.4-6.5 [facility] Comment on above: Performed By: #### B UN, CREA #### [facility] [address] [place] [address] Dr. Soo Donnelly Neutrophils/100 WBC (Bld) 57.4 % Normal 43.0-75.0 [facility] Comment on above: Performed By: #### B UN, CREA #### [facility] [address] [place] [address] Dr. Soo Donnelly Platelet mean volume (Bld) [Entitic vol] 10.3 fL Normal 9.5-13.5 [facility] Comment on above: Performed By: #### B UN, CREA #### [facility] [address] [place] [address] Dr. Soo Donnelly PLT 235 103/ul Normal 150-450 [facility] Comment on above: Performed By: #### B UN, CREA #### [facility] [address] [place] [address] Dr. Soo Donnelly RBC 4.38 106/ul Normal 4.20-5.40 [facility] Comment on above: Performed By: #### B UN, CREA #### [facility] [address] [place] [address] Dr. Soo Donnelly WBC 9.8 103/ul Normal 4.0-11.0 [facility] Comment on above: Performed By: #### B UN, CREA #### [facility] [address] [place] [address] Dr. Soo Donnelly PREG QUANT HCGon 05-16-2022 HCG QUANT <1 Normal [facility] Comment on above: Performed By: #### U LG, CRP #### [facility] [address] [place] [address] Dr. Soo Donnelly HCG RANGE SEE BELOW Normal [facility] Comment on above: Result Comment: 5-50 0-1 WEEK 40-300 1-2 WEEKS 100-1,000 2-3 WEEKS 500-6,000 3-4 WEEKS 5,000-200,000 1-2 MONTHS 10,000-100,000 2-3 MONTHS 3,000-50,000 2ND TRIMESTER 1,000-50,000 3RD TRIMESTER Performed By: #### U LG, CRP #### [facility] [address] [place] [address] Dr. Soo Donnelly Covid-19 PCR (CVDTB)on 05-01 SARS-CoV-2 (COVID-19) RNA NOLA+probe Ql (Unsp spec) Not detected Normal NOT DETECTED [facility] Comment on above: Result Comment: This test is not yet approved or cleared by the [place] FDA. When there are no FDA-approved or cleared tests available, and other criteria are met, FDA can make tests available under an emergency access mechanism called an Emergency Use Authorization (EUA). The EUA for this test is supported by the [employer] of Health and Human Service's (HHS's) declaration that circumstances exist to justify the emergency use of in vitro diagnostics for the detection and/or diagnosis of the virus that causes COVID-19. This EUA will remain in effect (meaning this test can be used) for the duration of the COVID-19 declaration justifying emergency of IVDs, unless it is terminated or revoked by FDA (after which the test may no longer be used). When diagnostic testing is negative, the possibility of a false negative should be considered in the context of a patient's recent exposures and the presence of clinical signs and symptoms consistent with SARS-CoV-2. Performed By: #### C [id number] #### [facility] [address] [place] [address] Dr. Soo Donnelly TYPE AND SCREENon 05-13-2022 TYPE AND SCREEN Negative Normal [facility] Comment on above: Performed By: #### B UN, CREA #### [facility] [address] [address] [address] Soo Donnelly PAP ACOG PANEL 2: 30 to 65on 05-07-2022 . . Normal [facility] Comment on above: Result Comment: Perf ormed at: WB Performed By: #### [id number] #### [facility] [address] [address] [address] Soo Donnelly Age Gdln ACOG Testing 30-65 [facility] Comment on above: Performed By: #### [id number] #### [facility] [address] [address] [address] Soo Donnelly DIAGNOSIS: Comment Normal [facility] Comment on above: Result Comment: NEGA TIVE FOR INTRAEPITHELIAL LESION OR MALIGNANCY. Performed at: WB Performed By: #### [id number] #### [facility] [address] [place] [address] Dr. Soo Donnelly HPV Aptima Negative Normal Negative [facility] Comment on above: Result Comment: This nucleic acid amplification test detects fourteen high-risk HPV types (16,18,31,33,35,39,45,51,52,56,58,59,66,68) without differentiation. Performed at: =G Performed By: #### [id number] #### [facility] [address] [place] [address] Dr. Soo Donnelly Methodology: Comment Normal [facility] Comment on above: Result Comment: This liquid based ThinPrep(R) pap test was screened with the use of an image guided system. Performed at: WB Performed By: #### [id number] #### [facility] [address] [place] [address] Dr. Soo Donnelly Note: Comment Normal [facility] Comment on above: Result Comment: The Pap smear is a screening test designed to aid in the detection of premalignant and malignant conditions of the uterine cervix. It is not a diagnostic procedure and should not be used as the sole means of detecting cervical cancer. Both false-positive and false-negative reports do occur. . Performed at: WB Performed By: #### [id number] #### [facility] [address] [place] [address] Dr. Soo Donnelly Performed by: Comment Normal [facility] Comment on above: Result Comment: Angel Rod, Nurse'S Aides Teacher (ASCP) Performed at: WB Performed By: #### [id number] #### [facility] [address] [place] [address] Dr. Soo Donnelly Specimen adequacy: Comment Normal [facility] Comment on above: Result Comment: Sati sfactory for evaluation. Endocervical and/or squamous metaplastic cells (endocervical component) are present. Performed at: WB Performed By: #### [id number] #### [facility] [address] [place] [address] Dr. Soo Donnelly ROSS by IFAon 02-21-2022 Antinuclear Antibodies, IFA Negative Normal [facility] Comment on above: Result Comment: Nega tive <1:80 Borderline 1:80 Positive >1:80 ICAP nomenclature: AC-0 For more information about Hep-2 cell patterns use ANApatterns.org, the official website for the International Consensus on Antinuclear Antibody (ROSS) Patterns (ICAP). Performed By: #### U LG, CRP #### [facility] [address] [address] [address] Soo Donnelly ROSS DIRECTon 02-20-2022 ROSS Direct Negative Normal Negative [facility] Comment on above: Performed By: #### A NAD #### [facility] [address] [place] [address] Dr. Soo Donnelly ANTISTREPTOLYSIN O AB (ASO)o n 02-20-2022 Antistreptolysin O Ab 115.3 IU/mL Normal 0.0-200.0 [facility] Comment on above: Performed By: #### B UN, CREA #### [facility] [address] [place] [address] Dr. Soo Donnelly C3 and C4 COMPLEMENTon 02-20 Complement C3, Serum 137 mg/dL Normal 82-167 [facility] Comment on above: Performed By: #### U LG, CRP #### [facility] [address] [place] [address] Dr. Soo Donnelly Complement C4, Serum 23 mg/dL Normal 12-38 [facility] Comment on above: Performed By: #### U LG, CRP #### [facility] [address] [place] [address] Dr. Soo Donnelly SLE PROFILE Aon 02-20-2022 Anti-DNA (DS) Ab Qn <1 Normal 0-9 [facility] Comment on above: Result Comment: Nega tive <5 Equivocal 5 - 9 Positive >9 Performed By: #### S YARI #### [facility] [address] [place] [address] Dr. Soo Donnelly Antichromatin Antibodies <0.2 Normal 0.0-0.9 [facility] Comment on above: Performed By: #### S YARI #### [facility] [address] [address] [address] Soo Donnelly RA Latex Turbid. <10.0 Normal <14.0 [facility] Comment on above: Performed By: #### S YARI #### [facility] [address] [address] [address] Soo Donnelly PRINT DEVELOPER AUTOMATIC Antibodies <0.2 Normal 0.0-0.9 [facility] Comment on above: Performed By: #### S YARI #### [facility] [address] [address] [address] Soo Donnelly Sjogren's Anti-SS-A <0.2 Normal 0.0-0.9 [facility] Comment on above: Performed By: #### S YARI #### [facility] [address] [place] [address] Dr. Soo Donnelly Sjogrdaniela's Anti-SS-B <0.2 Normal 0.0-0.9 [facility] Comment on above: Performed By: #### S YARI #### [facility] [address] [address] [address] Soo Donnelly Spann Antibodies <0.2 Normal 0.0-0.9 [facility] Comment on above: Performed By: #### S YARI #### [facility] [address] [place] [address] Dr. Soo Donnelly CRPon 02-19-2022 CRP [Mass/Vol] mg/L Normal <=1.0 [facility] Comment on above: Performed By: #### U LG, CRP #### [facility] [address] [place] [address] Dr. Soo Donnelly URIC ACID SERUMon 02-19-2022 Urate [Mass/Vol] 4.7 mg/dL Normal 2.5-6.2 [facility] Comment on above: Performed By: #### U LG, CRP #### [facility] [address] [address] [address] Soo Donnelly XR CSPINE MIN 4 VIEWSon 01-30 XR CSPINE MIN 4 VIEWS EXAMINATION: XR TSPINE 3 VIEWS, XR LSPINE MIN 4 VIEWS, XR CSPINE MIN 4 VIEWS HISTORY: Joint pain COMPARISON: No relevant comparison available. FINDINGS: BONES: Reversal of normal cervical lordosis. Normal alignment of the thoracic and lumbar vertebral bodies. Mild diffuse degenerative changes most significant C5-C6 DISC SPACES: Normal. No significant disc height narrowing, subluxation, or endplate abnormality. PARASPINOUS: Negative. No paraspinous abnormality is seen. OTHER: Negative. IMPRESSION: Mild diffuse degenerative changes most significant at C5-C6 Electronically authenticated by: ABIGAIL SHEEHAN Date: 2022-02-19 16:33 Normal [facility] XR HAND DEAN MIN 3Von 022 XR HAND DEAN MIN 3V EXAMINATION: XR HAND DEAN MIN 3V HISTORY: Joint pain COMPARISON: No relevant comparison available. FINDINGS: RIGHT FINDINGS: BONES: No acute fracture or dislocation. Mild degenerative changes most significant along the distal interphalangeal joints with joint space narrowing and minimal marginal osteophyte formation SOFT TISSUES: Negative. No visible soft tissue swelling. OTHER: Negative. LEFT FINDINGS: BONES: No acute fracture or dislocation. Mild degenerative changes most significant along the distal interphalangeal joints with joint space narrowing and minimal marginal osteophyte formation SOFT TISSUES: Negative. No visible soft tissue swelling. OTHER: Negative. IMPRESSION: RIGHT CONCLUSION: Mild osteoarthritis LEFT CONCLUSION: Mild osteoarthritis Electronically authenticated by: ABIGAIL SHEEHAN Date: 2022-02-19 16:28 Normal [facility] ASYMPTOMATIC COVID-19 ANTIGE Non 12-04-2021 EUA Statement SEE BELOW Normal [facility] Comment on above: Result Comment: This test has not been FDA cleared or approved, but has been authorized by the FDA under an Emergency Use Authorization (EUA) for use by authorized laboratories certified under CLIA that meet the requirements to perform moderate or high complexity testing. This test has been authorized only for the detection of proteins from SARS-CoV-2, not for any other viruses or pathogens. The emergency use of this test is authorized for the duration of the declaration that circumstances exist justifying the authorization of emergency use of in vitro diagnostic tests for detection and/or diagnosis of Covid-19 under section 564(b)(1) of the Act, 21 U.S.C. 360bbb-3(b)(1), unless the declaration is terminated or authorization is revoked sooner. Performed By: #### C VDAGA #### [facility] [address] [place] [id number] Soo Donnelly SARS-CoV-2 (COVID-19) RNA NOLA+probe Ql (Unsp spec) Negative Normal NEGATIVE [facility] Comment on above: Result Comment: Nega tive results are presumptive. They do not preclude infection and should not be used as the sole basis for treatment decisions. Additional confirmatory testing by a molecular method should be considered. Performed By: #### C VDAGA #### [facility] [address] [place] [id number] Soo Donnelly [facility]on SARS-CoV-2 (COVID-19) RNA NOLA+probe Ql (Unsp spec) Not detected Normal NOT DETECTED [facility] Comment on above: Result Comment: This test is not yet approved or cleared by the [place] FDA. When there are no FDA-approved or cleared tests available, and other criteria are met, FDA can make tests available under an emergency access mechanism called an Emergency Use Authorization (EUA). The EUA for this test is supported by the [place] of Health and Human Service's (HHS's) declaration that circumstances exist to justify the emergency use of in vitro diagnostics for the detection and/or diagnosis of the virus that causes COVID-19. This EUA will remain in effect (meaning this test can be used) for the duration of the COVID-19 declaration justifying emergency of IVDs, unless it is terminated or revoked by FDA (after which the test may no longer be used). When diagnostic testing is negative, the possibility of a false negative should be considered in the context of a patient's recent exposures and the presence of clinical signs and symptoms consistent with SARS-CoV-2. Performed By: #### U LG, CRP #### [facility] [address] [place], [place] [id number] Dr. Soo Donnelly Vital Signs Date Time Vital Sign Value Performing Clinician Facility 11-01-2022 15:19-0500 Blood Pressure Location Nicola CANDELARIOHamida [facility] 11-01-2022 15:19-0500 Diastolic blood pressure 80 mm[Hg] Nicola NILL [facility] 11-01-2022 15:19-0500 Heart rate 72 /min Nicola NILL [facility] 11-01-2022 15:19-0500 Respiratory rate 16 /min Nicola NILL [facility] 11-01-2022 15:19-0500 Systolic blood pressure 118 mm[Hg] Nicola NILL [facility] 10-01-2022 16:30-0400 Body height 170.18 cm Clarice Scally Other [employer] Other 10-01-2022 16:30-0400 Body mass index (BMI) [Ratio] 32.84 kg/m2 Clarice Scally Other [employer] Other 10-01-2022 16:30-0400 Body weight 95.12 kg Clarice Scally Other [employer] Other 10-01-2022 16:30-0400 Diastolic blood pressure 82 mm[Hg] Clarice Scally Other [employer] Other 10-01-2022 16:30-0400 Respiratory rate 18 /min Clarice Scally Other [employer] Other 10-01-2022 16:30-0400 SaO2% (BldA) [Mass fraction] 97 % Clarice Scally Other [employer] Other 10-01-2022 16:30-0400 Systolic blood pressure 116 mm[Hg] Clarice Scally Other [employer] Other 08-28-2022 14:30-0400 Body height 170.18 cm Nahid Elisediff Other [employer] Other 08-28-2022 14:30-0400 Body mass index (BMI) [Ratio] 34.55 kg/m2 Nahid Elisediff Other [employer] Other 08-28-2022 14:30-0400 Body weight 100.06 kg Nahid Elisediff Other [employer] Other 08-28-2022 14:30-0400 Diastolic blood pressure 82 mm[Hg] Nahidtrell Mccoy Other [employer] Other 08-28-2022 14:30-0400 Respiratory rate 18 /min Nahid Mccoy Other [employer] Other 08-28-2022 14:30-0400 SaO2% (BldA) [Mass fraction] 97 % Nahidtrell Mccoy Other [employer] Other 08-28-2022 14:30-0400 Systolic blood pressure 121 mm[Hg] Nahid Mccoy Other [employer] Other Encounters Encounter Date Encounter Type Care Provider Facility Start: 03-15-2024 End: 03-15-2024 Emergency department patient visit Nicola Neff Facility:[facility] Start: 10-22-2023 End: 10-22-2023 ambulatory JESSICA SANCHEZ Not Available Start: 08-15-2023 End: 08-15-2023 ambulatory Dedrick Fuller Facility:[facility] Start: 08-15-2023 End: 08-15-2023 ambulatory NON STAFF [facility] Work Phone: Start: 08-15-2023 End: 08-15-2023 Departed Referred [facility] [address] Work Phone: Start: 12-05-[address] SAMI MARINELLI Facility :[facility] Start: 11-09-2022 End: 11-10-[address] DOCTOR STEIN Facility:[facility] Start: 11-01-2022 End: 11-02-2022 ambulatory Nicola BUCHANAN Facility: [facility] Start: 11-01-2022 End: 11-01-2022 Patient encounter procedure Nicola BUCHANAN [facility] Start: 10-29-2022 End: 10-29-2022 ambulatory Clarice Hull Other [employer] Other Start: 10-29-2022 Telephone encounter [facility]ice [facility] Start: 10-14-2022 End: 10-14-2022 ambulatory Clarice Hull Other [employer] Other Start: 10-14-2022 Telephone encounter Clarice [facility] Start: 10-04-2022 ambulatory Nicola BUCHANAN Facility: [facility] Start: 10-01-2022 ([id number]) Weight Management f/u Clarice Hull [facility] Start: 10-01-2022 End: 10-02-[address] LUZ ELENA SAUCEDA [employer] Other Start: 09-19-2022 End: 09-19-2022 ambulatory Nahid Mccoy Other [employer] Other Start: 09-19-2022 Telephone encounter Nahid hark[facility] Start: 09-18-2022 End: 09-18-[address] LUZ ELENA SAUCEDA Facility:[facility] Start: 09-12-2022 End: 09-13-[address] ABIGAIL SHEEHAN Facility:[facility] Start: 08-28-2022 End: 08-28-2022 ambulatory Nahid Mccoy Other [facility] [employer] Other Start: 08-28-2022 Nutrition therapy Nahid [facility] Start: 07-22-2022 Encounter for genera l adult medical examination without abnormal findings DR SAMI MARINELLI [facility] Start: 07-19-2022 End: 07-20-[address] SAMI MARINELLI Facility:[facility] Start: 07-19-2022 End: 07-20-2022 Encounter for general adult medical examination without abnormal findings DR SAMI MARINELLI Facility:[facility] Start: 07-03-2022 End: 07-04-[address] SAMI MARINELLI Facility:[facility] Start: 06-10-2022 End: 06-11-[address] SAMI MARINELLI Facility:[facility] Start: 05-16-2022 End: 05-18-2022 Evaluation and management of inpatient DR AURA MURILLO Facility:[facility] Start: 05-16-2022 Encounter for preprocedural laboratory examination DR AURA MURILLO [facility] Start: 05-13-2022 End: 05-14-[address] AURA MURILLO Facility:[facility] Start: 05-13-2022 End: 05-14-2022 Encounter for preprocedural laboratory examination DR AURA MURILLO Facility:[facility] Start: 05-11-2022 Encounter for preprocedural cardiovascular examination DR AURA MURILLO [facility] Start: 05-08-2022 End: 05-09-[address] SAMI MARINELLI Facility:[facility] Start: 05-08-2022 End: 05-09-2022 Encounter for preprocedural cardiovascular examination DR SAMI MARINELLI Facility:[facility] Start: 05-02-2022 End: 05-02-[address] AURA MURILLO Facility:[facility] Start: 02-19-2022 End: 02-20-[address] SAMI MARINELLI Facility:[facility] Start: 12-04-2021 End: 12-04-[address] SAMI MARINELLI Facility:[facility] Procedures Date Procedure Procedure Detail Performing Clinician Start: 05-16-2022 Excision of Right Ov rgoe, Open Approach DR ABIGAIL SHEEHAN Start: 05-16-2022 Resection of Bilater al Fallopian Tubes, Open Approach DR ABIGAIL SHEEHAN Start: 05-16-2022 Resection of Left Ov roge, Open Approach DR ABIGAIL SHEEHAN Start: 05-16-2022 Resection of Uterus, Supracervical, Open Approach DR ABIGAIL SHEEHAN Start: 11-21-2014 excisional biopsy of enlarging painful recurrent lipomas of the left chest wall and left upper abdomen Nicola NILL Abdominoplasty and liposuction Nicola NILL Arthroscopy of knee Nicola NILL Comment on above: LEFT Breast biopsy and re lated procedures Nicola NILL Comment on above: LEFT section Nicola NIL L Diagnostic endoscopi c examination of ovary Nicola NILL Comment on above: OVARIAN CYSTS X3 Endometrial ablation Nicola NILL Extraction of wisdom tooth Jered CANDELARIOL Laparoscopic cholecystectomy Nicola NILL Laparoscopic excisio n of cyst of left ovary Nicola NILL Laparoscopic excisio n of cyst of right ovary Nicola NILL Ligation of fallopian tube M zion CANDELARIOL Comment on above: DONE WITH C SECTION LIPOMA EXCISION 4 Nicola NI LL Comment on above: ABDOMEN X3 REPAIR FOR TMJ Nicola NILL Immunizations Immunization Date Immunization Notes Care Provider Ramila narvaez NEGATED: Highlighted row has not occurred!11-01-2022 influenza virus vaccine, unspecified formulation Nicola CANDELARIOL [facility] Payers Date Payer Category Payer Self-pay [id number] 1975 Unknown [id number] 2.16.8 [id number] 1975 Unknown [id number] 2.16.84 0.1.579892.3.579.2.593 1976 Unknown [id number] 2.16.84 0.1.637155.3.579.2.593 1976 Unknown [id number] 2.16.84 0.1.746751.3.579.2.593 1976 Unknown [id number] 2.16.84 0.1.716253.3.579.2.593 1976 Unknown [id number] 2.16.84 0.1.031484.3.579.2.593 1976 Unknown [id number] 2.16.84 0.1.684811.3.579.2.593 1976 Unknown [id number] 2.16.84 0.1.046898.3.579.2.593 1976 Unknown [id number] 2.16.84 0.1.982458.3.579.2.593 1976 Unknown [id number] 2.16.84 0.1.046462.3.579.2.593 1976 Unknown [id number] 2.16.84 0.1.375654.3.579.2.593 1976 Unknown [id number] 2.16.84 0.1.626450.3.579.2.593 1976 Unknown [id number] 2.16.84 0.1.515716.3.579.2.593 1976 Unknown [id number] 2.16.84 0.1.723025.3.579.2.593 1976 Unknown [id number] 2.16.84 0.1.975633.3.579.2.593 1976 Unknown [id number] 2.16.840 .1.894775.3.579.2.1259 1976 Unknown [id number] 2.16.8 40.1.550391.3.579.2.718 1959 Self-pay [id number] 1959 Unknown [id number] 2. [id number] Unknown [id number] 2.16.8 40.1.947673.3.579.2.531 Unknown [id number] 2.16.8 40.1.039853.3.579.2.531 Social History Date Type Detail Facility Unknown if ever smoked [employer] Other Sex Assigned At [facility] Start: 11-01-2022 Tobacco smoking status Ex-smoker (finding) [facility] Tobacco smoking status Former smokeless tobacco user, quit more than 30 days ago [facility] Start: 1975 Sex Assigned At Female F [facility] Functional Status Date Assessment Result Facility 11-01-2022 Functional Status N/A [facility] Clinical Notes 05-16-2022 to 03-15-2024 Note Date & Type Note Facility 03-15-2024 Note Education Materials Cardiovascular Hypertension, Adult Hypertension is another name for high blood pressure. High blood pressure forces your heart to work harder to pump blood. This can cause problems over time. There are two numbers in a blood pressure reading. There is a top number (systolic) over a bottom number (diastolic). It is best to have a blood pressure that is below 120/80. What are the causes? The cause of this condition is not known. Some other conditions can lead to high blood pressure. What increases the risk? Some lifestyle factors can make you more likely to develop high blood pressure: ? Smoking. ? Not getting enough exercise or physical activity. ? Being overweight. ? Having too much fat, sugar, calories, or salt (sodium) in your diet. ? Drinking too much alcohol. Other risk factors include: ? Having any of these conditions: ? Heart disease. ? Diabetes. ? High cholesterol. ? Kidney disease. ? Obstructive sleep apnea. ? Having a family history of high blood pressure and high cholesterol. ? Age. The risk increases with age. ? Stress. What are the signs or symptoms? High blood pressure may not cause symptoms. Very high blood pressure (hypertensive crisis) may cause: ? Headache. ? Fast or uneven heartbeats (palpitations). ? Shortness of breath. ? Nosebleed. ? Vomiting or feeling like you may vomit (nauseous). ? Changes in how you see. ? Very bad chest pain. ? Feeling dizzy. ? Seizures. How is this treated? ? This condition is treated by making healthy lifestyle changes, such as: ? Eating healthy foods. ? Exercising more. ? Drinking less alcohol. ? Your doctor may prescribe medicine if lifestyle changes do not help enough and if: ? Your top number is above 130. ? Your bottom number is above 80. ? Your personal target blood pressure may vary. Follow these instructions at home: Eating and drinking ? If told, follow the DASH eating plan. To follow this plan: ? Fill one half of your plate at each meal with fruits and vegetables. ? Fill one fourth of your plate at each meal with whole grains. Whole grains include whole-wheat pasta, brown rice, and whole-grain bread. ? Eat or drink low-fat dairy products, such as skim milk or low-fat yogurt. ? Fill one fourth of your plate at each meal with low-fat (lean) proteins. Low-fat proteins include fish, chicken without skin, eggs, beans, and tofu. ? Avoid fatty meat, cured and processed meat, or chicken with skin. ? Avoid pre-made or processed food. ? Limit the amount of salt in your diet to less than 1,500 mg each day. ? Do not drink alcohol if: ? Your doctor tells you not to drink. ? You are , may be , or are planning to become . ? If you drink alcohol: ? Limit how much you have to: ? 0?1 drink a day for women. ? 0?2 drinks a day for men. ? Know how much alcohol is in your drink. In the [place] one drink equals one 12 oz bottle of beer (355 mL), one 5 oz glass of wine (148 mL), or one 1? oz glass of hard liquor (44 mL). Lifestyle ? Work with your doctor to stay at a healthy weight or to lose weight. Ask your doctor what the best weight is for you. ? Get at least 30 minutes of exercise that causes your heart to beat faster (aerobic exercise) most days of the week. This may include walking, swimming, or biking. ? Get at least 30 minutes of exercise that strengthens your muscles (resistance exercise) at least 3 days a week. This may include lifting weights or doing Pilates. ? Do not smoke or use any products that contain nicotine or tobacco. If you need help quitting, ask your doctor. ? Check your blood pressure at home as told by your doctor. ? Keep all follow-up visits. Medicines ? Take [id number] and prescription medicines only as told by your doctor. Follow directions carefully. ? Do not skip doses of blood pressure medicine. The medicine does not work as well if you skip doses. Skipping doses also puts you at risk for problems. ? Ask your doctor about side effects or reactions to medicines that you should watch for. Contact a doctor if: ? You think you are having a reaction to the medicine you are taking. ? You have headaches that keep coming back. ? You feel dizzy. ? You have swelling in your ankles. ? You have trouble with your vision. Get help right away if: ? You get a very bad headache. ? You start to feel mixed up (confused). ? You feel weak or numb. ? You feel faint. ? You have very bad pain in your: ? Chest. ? Belly (abdomen). ? You vomit more than once. ? You have trouble breathing. These symptoms may be an emergency. Get help right away. Call 911. ? Do not wait to see if the symptoms will go away. ? Do not drive yourself to the hospital. Summary ? Hypertension is another name for high blood pressure. ? High blood pressure forces your heart to work harder to (more content not included)... [facility] 11-25-2022 Note Chief Complaint consultation for umbilical pain HPI Staff 47 year old female presents on consultation from Renetta Menjivar for umbilical pain. Reports pain radiates from one side of abdomen to the other, directly over the umbilicus. Reports intermittent bulge above umbilicus with occasional skin discoloration. Reports some nausea, denies vomiting. Several month history of constipation for which she takes PRN Metamucil and Miralax. CT abdomen/pelvis completed 10/01 with small fat containing periumbilical hernia. Patient has had multiple abdominal surgeries. History of Present Illness 47 yo female with h/o htn, hyperlipidemia, LIZZETH, GERD, anxiety, referred for periumbilical pain; slight bulge at times; abd ct scan reviewed, postoperative changes, no significant hernia; patient has had multiple abdominal operations, including tubal ligation, LS cholecystectomy, multiple gynecologic laparoscopies; BECKA, abdominoplasty; no N/V, no bowel changes; no tobacco use. Review of Systems PHQ Score Initial Depression Screen Score: 0 ROS - Provider Constitutional: no fever, no sweats, no weight loss. Eyes: no glasses, no blurred vision, no visual loss. ENMT: no dentures, no hoarseness, no swallowing difficulties, no hearing loss, no ear infection(s), no nose bleeds. Cardiovascular: normal blood pressure, no chest pain, regular heartbeat, no heart murmur. Respiratory: no shortness of breath, no cough, no asthma, no wheezing. Gastrointestinal: no nausea, no vomiting, no diarrhea, no constipation, no blood in stool, no change in bowel habits, mild abdominal pain, no hepatitis. Genitourinary: no kidney stones, no urine infection, no dysuria. Musculoskeletal: no pain, no weakness. Skin: no changing moles, no rash, no skin lumps. Neurologic: no seizures, no epilepsy, no headache. Psychiatric: no emotional or psychiatric problem. Heme/Lymph: no bleeding problems, no anemia, no blood clots, no transfusions. Allergy/Immunologic: no swollen lymph nodes/glands, no IV drug abuse. Other: Additional ROS info: Except as noted in the above Review of Systems and in the History of Present Illness, all other systems have been reviewed and are negative or noncontributory. Physical Exam Vitals & Measurements HR: 72(Peripheral) RR: 16 BP: 118/80 HT: 68 in HT: 172.72 cm WT: 91.8 kg WT: 201.96 lb BMI: 30.77 HEENT: normal conjunctiva, sclera clear, no scleral icterus, EOM intact, PERRLA, oral mucosa moist without lesions. Neck: trachea midline, no mass, symmetric, no thyromegaly or nodules, no adenopathy Respiratory: lungs CTA, respirations non labored. Cardiovascular: regular rate and rhythm, no murmur, no pedal edema or varicosities. Gastrointestinal: soft, non distended, no tenderness, no masses, multiple well-healed abdominal scars; no palpable hernias, diastasis recti yes, no hepatosplenomegaly; normal bs Lymphatic: no cervical adenopathy, no axillary adenopathy, no inguinal adenopathy. Musculoskeletal: normal gait, digits and nails without infection, nodes, cyanosis, clubbing. Skin: no rashes, no lesions, no ulcers, no subcutaneous nodules, induration. Psychiatric/Neuro: oriented to time, place, person, judgement normal, affect appropriate for age, insight intact, no focal deficits. Tests: , x-rays reviewed, review of old records completed, Assessment/Plan 1. Abdominal pain, periumbilical (R10.33: Periumbilical pain) likely related to scar tissue from multiple abdominal operations; no significant hernias noted on exam or abd/pelvic ct scan; call with problems/questions. Follow-up No qualifying data available Problem List/Past Medical History Ongoing Abdominal lipoma Abdominal pain, periumbilical Adenoma of sigmoid colon Anxiety BMI 30.0-30.9,adult GERD (gastroesophageal reflux disease) History of gastric ulcer HTN (hypertension) Hypertriglyceridemia IBS (irritable bowel syndrome) Metabolic syndrome X Mixed hyperlipidemia Obesity LIZZETH (obstructive sleep apnea) Pre-diabetes Right ovarian cyst Smoker Historical At risk of seizures Procedure/Surgical History excisional biopsy of enlarging painful recurrent lipomas of the left chest wall and left upper abdomen (11/21/2014), Abdominal hysterectomy, Abdominoplasty and liposuction, Arthroscopy of knee, Breast biopsy and related procedures, section, Endometrial ablation, Extraction of wisdom tooth, Laparoscopic cholecystectomy, Laparoscopic left ovarian cystectomy, Laparoscopic right ovarian cystectomy, Laparoscopy of ovary, LIPOMA EXCISION, REPAIR FOR TMJ, Tubal ligation. Medications lisinopril 20 mg Tab, 20 mg= 1 tab(s), Oral, Daily meloxicam 15 mg Tab, 15 mg= 1 tab(s), Oral, Daily omeprazole 40 mg Cap-DR, 40 mg= 1 cap(s), Oral, BID SEROquel 25 mg Tab, 25 mg= 1 tab(s), Oral, Daily Xanax 0.25 mg Tab, 0.25 mg= 1 tab(s), Oral, PRN Allergies Bee Stings (Nausea, Swelling) Macrobid (Neck swelling) PECANS albuterol Social History Alcohol - Denies A (more content not included)... [facility] Comment on above: Result Comment: Elec troamadoually Signed By: CHANEL BURK, Nicola Montano\Date and Time Signed: 11/25/22 10:08 EST 10-01-2022 Evaluation note Encounter Date Diagnosis Assessment Notes Oct, Abnormal weight gain (ICD-10 - R63.5) Oct, Obesity (ICD-10 - E66.9) Plan, purchase and prepare healthy foods. Use shopping list, electronic shopping to curb impulse buying. Stock pantry with healthy foods. Keep fruits and vegetables accessible. Avoid bringing unhealthy foods in to the home. Plan family meals minimally 3 x per week. Decrease screen time. Oct, Prediabetes (ICD-10 - R73.03) Discussed how diabetes II delayed or avoided with lifestyle changes such as, losing weight, being active, improving dietary intake. Discussed the risks for diabetes. Explained that weight loss of 5-10% can have significant impact. Consistent with weight management recommendations, encouraged diet rich in fruits, vegetables, low fat dairy, low in red meat sweets and refined grains. Stay away from soda and fruit juice. Increase activity 30 minutes most days of the week. Oct, Mixed hyperlipidemia (ICD-10 - E78.2) Discussed risks of elevated LDL. Encouraged intake of foods low in saturated fat as well as supplements (sierra, fish oil). Discussed LDL contributing to insulin resistance and increase cardiovascular risk factors. Oct, Hypertension (ICD-10 - I10) We discussed that the AHA recommends no more than 2,300 mg a daily as an ideal limit, but no more than 1,500 mg daily for most adults, especially those with HTN. Soduim intake below 1,000 mg per day can further improve blood pressure and heart health. Oct, Obstructive sleep apnea (ICD-10 - G47.33) Attention to sleep hygiene: Sleep at least 6 hours without interruption per 24 hours, best during same time of night. Avoid interruptions in sleep, turn off cell phones, engage friends and family to respect sleep time. This is difficult at first but remain in bed for at least 3 hours at a time and increased for 1 week until reset of the sleep-wake cycle. Consider discussion with PCP if no increased feelings of restfulness/vigi rebeka during awake hours. Might necessitate sleep adjunct. Awaiting treatment with CPAP encourage vigilance to titration Oct, GERD (gastroesophageal reflux disease) (ICD-10 - K21.9) Discussed secondary benefit of weight loss on reflux disease. Patient also has gastric ulcer in the past and is on PPI Oct, Metabolic syndrome X (ICD-10 - E88.81) Oct, Other I have spent 60 minutes with this patient and over 50% of the visit was counseling done by myself, Ann ANGLIN. [employer] Other 09-28-2022 Evaluation note* Encounter Date Diagnosis Assessment Notes Treatment Notes Treatment Clinical Notes Aug, Abnormal weight gain (ICD-10 - R63.5) Aug, Prediabetes (ICD-10 - R73.03) Aug, Mixed hyperlipidemia (ICD-10 - E78.2) Aug, Hypertension (ICD-10 - I10) Aug, Obstructive sleep apnea (ICD-10 - G47.33) Aug, GERD (gastroesophageal reflux disease) (ICD-10 - K21.9) Aug, Metabolic syndrome X (ICD-10 - E88.81) [employer] Other 06-16-2022 NoteDISCHARGE SUMMARY DISCHARGE DATE: 05/18/2022 PRIMARY DIAGNOSES: 1. Pelvic pain. 2. Abnormal uterine bleeding. 3. Dyspareunia. 4. Dysmenorrhea. PROCEDURE: Supracervical hysterectomy, left salpingo-oophorectomy, right salpingectomy, cystoscopy. HOSPITAL COURSE: As expected. Please see chart for full details. Patient did develop some chest pain. CTA of the chest was tested and was negative. Patient did develop leukocytosis. IV antibiotics were given. Patient will be sent home on oral antibiotics. LABORATORY DATA: Please see chart. COMPLICATIONS: None. DISCHARGE CONDITION: Stable. CONSULTATION: Anesthesia. DISCHARGE INSTRUCTIONS: 1.Diet: Regular. 2.Medications: a.Percocet 5/325 one to two p.o. every 4-6 hours p.r.n. pain. b.Motrin 800 one p.o. every 8 hours p.r.n. pain. c. Patient was given Flagyl 500 mg one p.o. b.i.d. d.Cipro 500 mg one p.o. b.i.d. 3.Followup in one week. Restrictions: Pelvic rest for 6 weeks. No heavy lifting. May drive when pain free and no longer on narcotics. [facility] Signed and Approved by: DR AURA MURILLO . 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 SURGEON: Aura Murillo D.O. BOTTLER HELPER: SHUKRI Bailon URINE OUTPUT: Yellow and clear. SPECIMEN: Uterus, tubes and left ovarian. FINDINGS: Normal appearing ovary, uterus and tube, except for a right 3 cm simple appearing cyst. Significant scar tissue from prior ,bladder to the anterior abdominal wall due to prior abdominoplasty made difficult surgery. At that point, supracervical was decided to be performed. PREOPERATIVE DIAGNOSIS: Menorrhagia, pelvic pain, dysmenorrhea, dyspareunia. POSTOPERATIVE DIAGNOSIS: Menorrhagia, pelvic pain, dysmenorrhea, dyspareunia. PROCEDURE: Patient was taken back to the Operating Room where she was given general anesthesia without difficulty. She was then prepped and draped in the normal sterile fashion. A Pfannenstiel skin incision was then made 2 cm above the symphysis and pubis and carried down to underlying rectus fascia using a Bovie. The fascia was incised in the midline and extended bilaterally using Gibbons scissors. Two Jakob clamps were placed on the superior aspect of the fascia and dissected off the underlying rectus muscle. The same was performed on the inferior aspect as well. The muscle was then in the midline. The peritoneum was identified and entered bluntly. Peritoneum was then extended superiorly and inferiorly with good visualization of the bladder. An O'Fernandez- O-Robbie retractor was placed into the patient's abdomen. The bowel was packed away with moist laparotomy sponges and the bladder blade was inserted. A Leahey tenaculum was placed on the patient's uterus and used for retraction. LigaSure apparatus was then used to come across the infundibulopelvic ligament on the patient's lt side which was then cauterized and transected. This was carried down serially through the broad ligament and across the round ligament. The bladder flap was then created using the Metzenbaum scissors, and the bladder was easily dissected off the patient's lower uterine segment. A curved Justyna was placed across the uterine artery on the lt side which was clamped, transected, and suture ligated using #0 Monocryl. On the pt rt side the ligasure came across the rt mesosalpingx and uteroovarian ligament. The the ligasure apparatus was carried down through the broad ligament to the uterine artery. a curved justyna was placed on the rt side which was clamped, transected, and suture ligated using #0 monocryl. The bladder was further dissected and a Zeppelin clamp was then placed along the cervix on the rt side and contralaterally as well, This was transected and suture ligated using #0 Monocryl. due to nature of adhesions and prior abdominoplasty as supracervical hysterectomy was performed, The uterus was then amputated using Latoya scissors. The patient's cervical stump was closed using #0 PDS in a running locked fashion and this was transfixed to the ipsilateral uterosacral and cardinal ligaments. Excellent hemostasis was assured. The patient's abdomen was copiously irrigated using warm saline. Cystoscopy was performed. Bladder was intact. Efflux was noted from both ostia. Cystoscope was removed. After excellent hemostasis was assured, all instruments were removed from the patient's abdomen. The patient's peritoneum was closed using 3-0 Vicryl in a running fashion. The patient's fascia was closed using #0 Vicryl in a running fashion. The patient's skin was closed using ga. The patient tolerated the procedure well. Sponge, lap, and needle counts were correct times two. Patient taken to the Recovery Room in stable condition. Electronically Authenticated and Edited by: Aura Murillo DO on 05/23/2022 10:30 AM EDT IF Signed and Approved by: DR AURA MURILLO . 05/23/2022 10:30:00[facility] No data available for this section General Surgery [facility] Evaluation noteNo InformationNort [email or web address] Other Evaluation noteNo assessment information available [facility] Work Phone: Hishcqd general Narrative - Reported* Type Description Date Medical History Arthritis Medical History anxiety Medical History hyperlipidemia Medical History migraine headache Medical History hypertension Medical History snoring Medical History fatigue, daytime Medical History sleep apnea Medical History back pain Medical History prediabetes Surgical History cholecystectomy Surgical History knee arthroscopy Surgical History lumpectomy, left breast Surgical History C section Surgical History female exploritory, Surgical History ovarian cyst removal X4 Surgical History hysterectomy Surgical History Tummy Tuck 2009 Surgical History lipoma removed 2004 Surgical History TMJ surgery Hospitalization History see above [employer] Other Histwrx general Narrative - Reported* Type Description Date Medical History Arthritis Medical History anxiety Medical History hyperlipidemia Medical History migraine headache Medical History hypertension Medical History snoring Medical History fatigue, daytime Medical History sleep apnea Medical History back pain Medical History prediabetes Surgical History cholecystectomy Surgical History knee arthroscopy Surgical History lumpectomy, left breast Surgical History C section Surgical History female exploritory, Surgical History ovarian cyst removal X4 Surgical History hysterectomy Surgical History Tummy Tuck 2009 Surgical History lipoma removed 2004 Surgical History TMJ surgery Hospitalization History see above Hospitalization History [facility] . [facility]18[facility]22 [employer] Other Hospital Discharge instructions No data available for this section General Surgery [facility] Progress note No data available for this section General Surgery [facility] Summary Purpose Family History No Family History Records FoundNo Family History Records FoundNo Family History Records FoundNo Family History Records FoundNo Family History Records Found Advance Directives No Advanced Directives Records FoundNo Advanced Directives Records FoundNo Advanced Directives Records FoundNo Advanced Directives Records FoundNo Advanced Directives Records Found Chief Complaint and Reason for Visit Chief Complaint WELLNESS Additional Source Comments REASON FOR VISIT (unrecogniz ed section and content) initial WMNDC Ozempic denied 09/19/2022WMN 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 request, SEE TE Oral meds, x injectible, initial WMNDS waiting for lab order to be sentDS please callDS Cancelled DM appt Patient Care team informatio n (unrecognized section and content) Team Status: Active Member Role Status Dates NON STAFF Primary Care Provider Active Team Status: Inactive Member Role Status Dates NON STAFF Primary Care Provider Active DO PALAK Evangelista Attending Provider Active INFORMATION SOURCE (unrecogn ized section and content) DATE CREATED AUTHOR 11/26/2022 Schmidt Leslie [facility] DATE CREATED AUTHOR AUTHOR'S ORGANIZ ATION 12/03/2022 [facility] DATE CREATED AUTHOR AUTHOR'S ORGANIZ ATION 08/16/2023 [facility] DATE CREATED AUTHOR AUTHOR'S ORGANIZ ATION 10/24/2023 [facility] DATE CREATED AUTHOR AUTHOR'S ORGANIZ ATION 03/21/[address] [facility] l Goals (unrecognized section and content) Goals may be documented in a n alternate section FOR RECORDS PERTAINING TO PATIENTS WHO ARE OR HAVE BEEN ENROLLED IN A CHEMICAL DEPENDENCY/SUBSTANCEABUSE PROGRAM, SOME INFORMATION MAY BE OMITTED. This clinical summary was aggregated from multiple sources. Caution should be exercised in using it in the provision of clinical care. This summary normalizes information from multiple sources, and as a consequence, information in this document may materially change the coding, format and clinical context of patient data. In addition, data may be omitted in some cases. CLINICAL DECISIONS SHOULD BE BASED ON THE PRIMARY CLINICAL RECORDS. [employer] provides no warranty or guarantee of the accuracy or completeness of information in this document.
[2024-03-27 12:43] VITALS: BP 130/93; PULSE 71; TEMP 37; O2SAT 98; BMI 33.4
--- NOTE | 2024-03-27 12:55 | CT_ITS ---
The [address] [address] Patient Name: HORACIO KEATING MRN: [id number] date: 1975 Sex: F Assigned Patient Location: ER Current Patient Location: ER Accession/Order Number: [id number] Exam Date: 03/27/2024 14:00 Report Date: 03/27/2024 15:00 At the request of: SHOAIB HARRIS Procedure: CT abdomen pelvis w con EXAM: CT abdomen pelvis w con HISTORY: pain COMPARISON: 10/01/2022 TECHNIQUE: Axial CT imaging was performed through the abdomen and pelvis with intravenous contrast. Multiplanar reformats were performed. Dose reduction techniques were achieved by using automated exposure control and/or adjustment of mA and/or kV according to patient size and/or use of iterative reconstruction technique. FINDINGS: Lung bases: Lung bases are clear. No pleural effusion. GI upper: Unremarkable. Liver: Hepatic steatosis. Normal size and contour. Gallbladder: Cholecystectomy. Biliary system: No intra or extrahepatic biliary ductal dilatation. Spleen: Normal size. Pancreas: Unremarkable. Adrenal glands: Normal adrenal glands. Kidneys/ureters: Normal contours. No hydronephrosis. No nephrolithiasis or ureterolithiasis. There is a 1.9 cm simple right renal cysts. Vessels: No aneurysm. Lymph Nodes: No lymphadenopathy. Small bowel: No wall thickening or dilatation. Colon: No wall thickening or dilatation. Appendix: No findings of appendicitis. Peritoneal cavity: No free fluid or pneumoperitoneum. Lower : There is multiloculated right adnexal cyst, measuring 5.1 cm, increased in size (previously measured 2.9 cm). Bones: No acute bony abnormality. Soft tissues: No acute finding. Additional findings: None. CT/CT abdomen pelvis w con IMPRESSION: Interval increase in size of multiloculated right adnexal cyst, measuring 5.1 cm(previously measured 2.9 cm).. Pelvic ultrasound is recommended for further evaluation Hepatic steatosis. Electronically authenticated by: FOZIA NEVAREZ Date: 03/27/2024 15:00
[2024-03-27 13:03] LABS: Bilirubin Urine NEGATIVE (NEGATIVE); Blood Urine NEGATIVE (NEGATIVE); Clarity Urine CLEAR (CLEAR); Color Urine LT. YELLOW (YELLOW); Glucose Urine UA NEGATIVE (NEGATIVE); Ketones Urine NEGATIVE (NEGATIVE); Leukocyte Esterase Urine NEGATIVE (NEGATIVE); Nitrite Urine NEGATIVE (NEGATIVE); Protein Urine NEGATIVE (NEG/TRACE); Specific Gravity Urine 1.025 (1.005-1.025); Urobilinogen Urine 0.2 EU/dL (0.2-1.0); pH Urine 5.5 (5.0-9.0)
[2024-03-27 13:09] LABS: Bacteria Urine SMALL #/HPF (NONE SEEN); Mucus Urine NONE SEEN (NONE SEEN)
[2024-03-27 13:10] LABS: Cast Seen? NONE SEEN #/LPF (NONE SEEN); Crystals Seen? None Seen #/HPF (None Seen); RBC Urine 0-2 #/HPF (0-2); Squamous Epithelial Cell Urine MODERATE #/LPF (NONE/RARE); WBC Urine 0-2 #/HPF (NONE SEEN)
[2024-03-27] MEDS: 0.9 % SODIUM CHLORIDE 1,000 ML 999 ML IV (13:17)
[2024-03-27] MEDS: KETOROLAC TROMETHAMINE 30 MG/ML VIAL 15 MG IVP (13:17)
[2024-03-27] MEDS: ONDANSETRON PF 4 MG/2 ML VIAL IV (13:17)
[2024-03-27] MEDS: HYDROMORPHONE HCL 1 MG/ML CARTRIDGE IV (13:18)
[2024-03-27 13:23] LABS: Basophils Absolute Auto 0.1 10^3/uL (0.0-0.1); Basophils Percent Auto 0.6 % (0.2-2.0); Eosinophils Absolute Auto 0.2 10^3/uL (0.0-0.7); Hematocrit 41.6 % (36.0-48.0); Hemoglobin 13.9 g/dL (12.0-16.0); Immature Granulocytes Abs Auto 0.04 10^3/uL (0.00-0.03); Immature Granulocytes Pct Auto 0.4 % (0.0-0.5); Lymphocytes Absolute Auto 2.8 10^3/uL (1.2-3.8); Lymphocytes Percent Auto 26.7 % (20.5-60.0); Mean Corpuscular HGB Conc 33.4 g/dL (29.9-35.2); Mean Corpuscular Hemoglobin 31.7 pg (26.7-34.0); Mean Corpuscular Volume 94.8 fL (81.0-99.0); Mean Platelet Volume 10.5 fL (9.5-13.5); Monocytes Absolute Auto 0.7 10^3/uL (0.3-0.8); Monocytes Percent Auto 6.4 % (1.7-12.0); Neutrophils Absolute Auto 6.7 10^3/uL (1.4-6.5); Neutrophils Percent Auto 63.9 % (43.0-75.0); Platelet Count 261 10^3/uL (150-450); Red Blood Count 4.39 10^6/uL (4.20-5.40); White Blood Count 10.4 10^3/uL (4.0-11.0)
[2024-03-27 13:41] LABS: Alanine Aminotransferase 40 U/L (14-59); Albumin Globulin Ratio 1.2; Albumin Level 3.9 g/dL (3.4-5.0); Alkaline Phosphatase 46 U/L (46-116); Anion Gap 16.3; Aspartate Amino Transferase 25 U/L (15-37); Bilirubin Total 1.1 mg/dL (0.2-1.0); Calcium 9.2 mg/dL (8.5-10.1); Carbon Dioxide 22.8 mmol/L (21.0-32.0); Chloride 106 mmol/L (98-107); Estimated GFR (African America >60 (>=60); Estimated GFR (Non-African Ame >60 (>=60); Globulin 3.2 g/dL; Glucose 131 mg/dL (74-106); Potassium 4.1 mmol/L (3.5-5.1); Sodium 141 mmol/L (136-145); Total Protein 7.1 g/dL (6.4-8.2)
[2024-03-27 13:44] LABS: Lactate/Lactic Acid 1.6 mmol/L (0.4-2.0)
[2024-03-27 14:54] VITALS: BP 156/84; PULSE 62; O2SAT 96
--- NOTE | 2024-03-27 20:50 | ED.GENADUL1 ---
HPI HPI - General Adult General Chief complaint: Abdominal Pain Stated complaint: RIGHT SIDE PAIN Time Seen by Provider: 03/27/24 12:53 Source: patient Mode of arrival: walk-in History of Present Illness HPI narrative: Patient is a 48-year-old female whho is presenting to the Emergency Room extremely histrionic, yelling, screaming, moaning in the Emergency Room holes, secondary to right lower quadrant, right flank, right lower back pain. Patient is caring on, very dramatic, very histrionic. Patient's daughter is at bedside. Patient was placed in the room to him placed in a gown. Patient's had no fall. She has no headache. No chest pain, no shortness of breath. Most the pains patient is in the right lower quadrant, also in the suprapubic area and does radiate to the right lower flank. Patient says that she does not have her gallbladder, she does have her appendix. She does have her right ovary, she does not have her uterus or left ovary. Patient has no fall. Patient states she's been having constipation, occasions in the last few days. Patient has no history of kidney stone, patient does have history of sciatica. No recent heavy lifting, twisting or turning. No blood in urine. I initially saw the patient and quickly evaluated her approximately 10 minutes after being in the room, I told the patient she does not need to keep excessively yelling, moaning, crying, secondary to pain. Multiple other people in the Emergency Room that were very disturbed by this patient. I asked her to stop yelling, I closed the door, and tore the medication was coming to help relieve her symptoms. . All systems are negative except as noted/marked. All systems reviewed and otherwise negative. . Nurses note and vital signs reviewed and patient is not hypoxic. General: The patient appears Severe distress secondary to being extremely histrionic, yelling, screaming, moaning in the ga secondary to pain. Patient is resting uncomfortably on cart. Patient is not toxic, lethargic, or listless Skin: Warm, dry, no pallor noted. There is no rash noted. No petechiae, purpura. Head: Normocephalic, atraumatic Eye: Normal conjunctiva, no drainage, EOMI. PERRL Ears, Nose, Mouth, and Throat: oral mucosa is moist. Nares patent. Mouth without vesicles. Cardiovascular: Regular Rate and Rhythm, no murmur, gallop, rub Respiratory: Patient is in no distress, no accessory muscle use, lungs are clear to auscultation, no wheezing, rales or rhonchi Back: non-tender, no CVA tenderness bilaterally to percussion. No CT LS midline pain GI: Obese, moderate right lower quadrant tenderness palpation, mild right flank pain tenderness palpation, mild suprapubic tenderness to palpation, no peritoneal signs, soft, Otherwise no tenderness to palpation, no masses appreciated. No rebound, Moderate guarding, no rigidity noted. No flank pain bilateral, No distention. Patient's yelling, screaming, moaning is extremely disproportionate to her abdominal exam. No rash. No signs of trauma Musculoskeletal: Patient has full range of motion of all of the extremities, no motor, sensory, or focal neurological deficits Neurological: A&O x3, normal speech Psychiatric: Cooperative Related Data Home Medications ?Medication ?Instructions ?Recorded ?Confirmed alprazolam 0.25 mg tablet 0.25 mg PO TID 03/27/24 03/27/24 doxepin 10 mg capsule 10 mg PO DAILY 03/27/24 03/27/24 fluconazole 150 mg tablet mg 03/27/24 meloxicam 15 mg tablet mg 03/27/24 methylphenidate HCl 20 mg tablet 30 mg PO BID 03/27/24 03/27/24 metoprolol tartrate 50 mg tablet 50 mg PO Q12H 03/27/24 03/27/24 omeprazole 40 mg capsule,delayed 40 mg PO BID 03/27/24 03/27/24 release oxaprozin 600 mg tablet 600 mg PO DAILY 03/27/24 03/27/24 tizanidine 4 mg capsule (Zanaflex) 4 mg PO .hs PRN muscle spasticity 03/27/24 03/27/24 Previous Rx's ?Medication ?Instructions ?Recorded dicyclomine 20 mg tablet 20 mg PO TID PRN abdominal pain #7 03/27/24 tabs ondansetron 4 mg disintegrating 4 mg PO Q4H PRN nausea and 03/27/24 tablet vomiting 3 days #6 tabs Allergies Allergy/AdvReac Type Severity Reaction Status Date / Time nitrofurantoin Allergy Mild Anaphylaxis Verified 03/27/24 12:37 [From Macrobid] pecan Allergy Intermediate Uncoded 03/27/24 12:37 Opioid HPI Opioid Management Most Recent Opioid Data: Last Pain Scale 4 03/27/24 14:00 Last MAR Pain Assessment 03/27/24 13:18 Exam Constitutional Vital Signs, click to edit/add: Last Vital Signs Temp 98.6 F 03/27/24 12:43 Pulse 62 03/27/24 14:54 Resp 14 03/27/24 14:54 BP 156/84 H 03/27/24 14:54 Pulse Ox 96 03/27/24 14:54 O2 Del Method Room Air 03/27/24 14:54 Course Vital Signs Vital signs: Vital Signs Temperature 98.6 F 03/27/24 12:43 Pulse Rate 71 03/27/24 12:43 Respiratory Rate 16 03/27/24 12:43 Blood Pressure 130/93 H 03/27/24 12:43 Pulse Oximetry 98 03/27/24 12:43 Oxygen Delivery Method Room Air 03/27/24 12:43 Temperature 98.6 F 03/27/24 12:43 Pulse Rate 62 03/27/24 14:54 Respiratory Rate 14 03/27/24 14:54 Blood Pressure 156/84 H 03/27/24 14:54 Pulse Oximetry 96 03/27/24 14:54 Oxygen Delivery Method Room Air 03/27/24 14:54 Medical Decision Making MDM Narrative Medical decision making narrative: Patient was initially given 1 mg of Dilaudid, Toradol, Zofran, IV fluids. Patient had lab work done and CT scan secondary to her extreme excessive presentation of pain. We are finding no acute findings. Patient's right ovarian cyst has enlarged. Education will be sent to the patient to follow-up with Her GERMINATION TESTING MANAGER in the office. Patient's right ovarian cyst has doubled in size, but it is only 5 cm. Patient will follow-up with GERMINATION TESTING MANAGER. Patient understands this, no questions at discharge. There was delay and patient discharged secondary to too critical ambulancePatient's had arrived in Emergency Room volume, patient did have prescription for Zofran and Bentyl sent to the pharmacy. Patient left before treatment being completed. Lab Data Labs: Lab Results 03/27/24 03/27/24 Range/Units 12:45 13:20 WBC 10.4 (4.0-11.0) 10^3/uL RBC 4.39 (4.20-5.40) 10^6/uL Hgb 13.9 (12.0-16.0) g/dL Hct 41.6 (36.0-48.0) % MCV 94.8 (81.0-99.0) fL MCH 31.7 (26.7-34.0) pg MCHC 33.4 (29.9-35.2) g/dL RDW 12.0 (11.0-15.0) % Plt Count 261 (150-450) 10^3/uL MPV 10.5 (9.5-13.5) fL Neut % (Auto) 63.9 (43.0-75.0) % Lymph % (Auto) 26.7 (20.5-60.0) % [place] % (Auto) 6.4 (1.7-12.0) % Eos % (Auto) 2.0 (0.9-7.0) % Baso % (Auto) 0.6 (0.2-2.0) % Neut # (Auto) 6.7 H (1.4-6.5) 10^3/uL Lymph # (Auto) 2.8 (1.2-3.8) 10^3/uL [place] # (Auto) 0.7 (0.3-0.8) 10^3/uL Eos # (Auto) 0.2 (0.0-0.7) 10^3/uL Baso # (Auto) 0.1 (0.0-0.1) 10^3/uL Abs Immat Gran (auto) 0.04 H (0.00-0.03) 10^3/uL Imm/Tot Granulo (auto) 0.4 (0.0-0.5) % Sodium 141 (136-145) mmol/L Potassium 4.1 (3.5-5.1) mmol/L Chloride 106 (98-107) mmol/L Carbon Dioxide 22.8 (21.0-32.0) mmol/L Anion Gap 16.3 BUN 12.0 (7.0-18.0) mg/dL Creatinine 0.80 (0.55-1.02) mg/dL Est GFR ( Amer) >60 (>=60) Est GFR (Non-Af Amer) >60 (>=60) BUN/Creatinine Ratio 15.0 Glucose 131 H (74-106) mg/dL Lactate 1.6 (0.4-2.0) mmol/L Calcium 9.2 (8.5-10.1) mg/dL Total Bilirubin 1.1 H (0.2-1.0) mg/dL AST 25 (15-37) U/L ALT 40 (14-59) U/L Alkaline Phosphatase 46 (46-116) U/L Total Protein 7.1 (6.4-8.2) g/dL Albumin 3.9 (3.4-5.0) g/dL Globulin 3.2 g/dL Albumin/Globulin Ratio 1.2 Lipase 95.0 H (16.0-77.0) U/L Urine Color Lt. yellow (YELLOW) Urine Clarity Clear (CLEAR) Urine pH 5.5 (5.0-9.0) Ur Specific [place] 1.025 (1.005-1.025) Urine Protein Negative (NEG/TRACE) mg/dL Urine Glucose (UA) Negative (NEGATIVE) mg/dL Urine Ketones Negative (NEGATIVE) mg/dL Urine Occult Blood Negative (NEGATIVE) Urine Nitrite Negative (NEGATIVE) Urine Bilirubin Negative (NEGATIVE) Urine Urobilinogen 0.2 (0.2-1.0) EU/dL Ur Leukocyte Esterase Negative (NEGATIVE) Urine RBC 0-2 (0-2) #/HPF Urine WBC 0-2 A (NONE SEEN) #/HPF Ur Squamous Epith Cells Moderate A (NONE/RARE) #/LPF Urine Crystals None seen (None Seen) #/HPF Urine Bacteria Small A (NONE SEEN) #/HPF Urine Casts None seen (NONE SEEN) #/LPF Urine Mucus None seen (NONE SEEN) Discharge Plan Discharge Stand Alone Forms: Portal Instructions Chief Complaint: Abdominal Pain Clinical Impression: Sciatica, Acute pain, Abdominal pain, Cyst of right ovary, Nausea Patient Disposition: Home, Self-Care Time of Disposition Decision: 16:27 Condition: Fair Prescriptions / Home Meds: New dicyclomine 20 mg tablet 20 mg PO TID PRN (Reason: abdominal pain) Qty: 7 0RF ondansetron 4 mg tablet,disintegrating 4 mg PO Q4H PRN (Reason: nausea and vomiting) 3 Days Qty: 6 0RF No Action alprazolam 0.25 mg tablet 0.25 mg PO TID metoprolol tartrate 50 mg tablet 50 mg PO Q12H doxepin 10 mg capsule 10 mg PO DAILY omeprazole 40 mg capsule,delayed release(DR/EC) 40 mg PO BID tizanidine [Zanaflex] 4 mg capsule 4 mg PO .hs PRN (Reason: muscle spasticity) fluconazole 150 mg tablet methylphenidate HCl 20 mg tablet 30 mg PO BID meloxicam 15 mg tablet oxaprozin 600 mg tablet 600 mg PO DAILY Print Language: French Instructions: Ovarian Cyst (ED), Sciatica (ED), Acute Nausea and Vomiting (ED), Abdominal Pain (ED), Back Pain (ED), Lower Back Exercises (ED), Acute Neck Pain (ED) Additional Instructions: Follow-up with PCP for additional testing. A copy of your CT report was given to you, follow-up with GERMINATION TESTING MANAGER for increase in your right ovarian cyst. Use Zofran as needed for nausea, Bentyl as needed for abdominal cramping. Referrals: Varun Marinelli MD [Primary Care Provider] - 1 week Discharge Date/Time: 03/27/24 16:10
== END 2024-03-27 16:10 | disposition home or self-care (01) ==
PROVIDERS: Emergency Provider Emergency Medicine; PCP Family Medicine
DX: R10.9 Unspecified abdominal pain (principal); R11.0 Nausea; N83.201 Unspecified ovarian cyst, right side; M54.40 Lumbago with sciatica, unspecified side; E66.9 Obesity, unspecified; Z68.33 Body mass index [BMI] 33.0-33.9, adult; Z79.899 Other long term (current) drug therapy
CPT/HCPCS: 36415; 74177; 80053; 81001; 83605; 83690; 85025; 96374; 96375; 99285; J1170; Q9967

== ENCOUNTER 2024-04-05 15:30 | Outpatient (OUT) | payer OTHER, SELFPAY ==
[2024-04-07 05:08] LABS: HIV Ab/p24 Ag Screen Non Reactive (Non Reactive)
== END 2024-04-05 15:31 | disposition home or self-care (01) ==
LOC: LAB 15:31
PROVIDERS: PCP Family Medicine; Visit Provider Physician Assistant
DX: Z20.2 Contact with and (suspected) exposure to infections with a predominantly sexual mode of transmission (principal)
CPT/HCPCS: 36415; 86592; 87340; 87389

== ENCOUNTER 2024-04-07 16:25 | Outpatient (OUT) | payer OTHER, SELFPAY ==
--- NOTE | 2024-04-07 16:28 | US_ITS ---
The [address] [address] Patient Name: HORACIO KEATING MRN: [id number] date: 1975 Sex: F Assigned Patient Location: US Current Patient Location: LAB Accession/Order Number: [id number] Exam Date: 04/07/2024 18:10 Report Date: 04/08/2024 17:35 At the request of: JESSICA SANCHEZ Procedure: US pelvis w/ transvaginal EXAMINATION: US pelvis w/ transvaginal HISTORY: pelvic pain in female R10.2 COMPARISON: Ultrasound pelvis 10/04/2023 TECHNIQUE: Transabdominal and/or transvaginal sonographic examination was performed as indicated by examination type. FINDINGS: UTERUS: Hysterectomy. Incidental nabothian cysts within cervix. RIGHT OVARY: Contains 2 complex cysts, 3.4 cm and 3.5 cm in maximum diameter respectively. There is also a simple appearing 3.5 cm cyst. Duplex Doppler demonstrates normal waveform and flow; resistive index 0.5. Ovary size: 7.3 x 5.5 x 5.9 cm LEFT OVARY: Oophorectomy. No suspicious adnexal findings. CUL-DE-SAC: Unremarkable. No significant free fluid. BLADDER: Unremarkable. OTHER: None. US/US pelvis w/ transvaginal IMPRESSION: 1. Several prominent cysts within right ovary which may contribute to patient's symptoms. Given the complex appearance of 2 of the cysts, follow-up ultrasound evaluation 6 weeks is recommended to document regression. 2. Prior hysterectomy and left oophorectomy. Electronically authenticated by: LUZ ELENA SAUCEDA Date: 04/08/2024 17:35
--- OUTSIDE RECORDS SUMMARY | 2024-04-07 16:31 | XMS_ITS | CCD ---
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 Role Phone Nahid Mccoy Unavailable Clarice Hull Unavailable Sami Marinelli Primary Care Physician Nicola BUCHANAN Attending Unavailable ISMAEL MENJIVAR Referring Unavailable SISSY, DR ABIGAIL Mc Consulting Unavailable LUL, DR GALLARDO Primary Care Unavailable ROSCOE, DR CHAVARRIA Attending Unavailable ROSCOE, DR CHAVARRIA Admitting Unavailable ROSCOE, DR CHAVARRIA Consulting Unavailable ROSCOE, DR CHAVARRIA Consulting Unavailable LUL, DR GALLARDO Referring Unavailable LUL, DR GALLARDO Primary Care Unavailable [...] Care Unavailable LUL, DR GALLARDO Attending Unavailable HOY, DR GALLARDO [...] Care Provider UnavailDO Dedrick Alfaro Attending Provider [phone] Nicola Neff Attending Unavailab Nicola Anderson Admitting Unavailab SAMI Matos Primary Care Unavailable JESSICA SANCHEZ Attending Unavailable AURA MURILLO Attending Unavailable Allergies Allergy Classification Reported Allergen(s) Allergy Type Date of Onset Reaction(s) Facility (7 sources) NITROFURANTOIN, MACROCRYSTALS / Nitrofurantoin, Monohydrate; 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: [nitrofurantoin] Drug Allergy Neck swelling (finding) [facility] (1 source) Albuterol Drug Allergy [facility] Comment on above: NEED TO CUT DOWN ADR ENALIN TO PREVENT SEIZURES (2 sources) Bee/Wasp/Ant venom; 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: [Bee Stings] Allergy to substance Nausea, Swelling [facility] (1 source) PECANS 1 Food allergy [facility] Comment on above: AIRWAY CONSTRICTION (2 sources) Albuterol; 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: [albuterol] Drug Allergy [facility] (1 source) Egg; 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: [Eggs] Food allergy (disorder) [facility] (4 sources) Nitrofurantoin; 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: [Macrobid] Drug Allergy 2 [facility] (1 source) PECANS; 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: [PECANS] Food allergy (disorder) [facility] (2 sources) bee venom Drug allergy (disorder) 5 [facility] (2 sources) egg extract Drug Allergy 5 [facility] (2 sources) pecan pollen extract Drug Allergy [facility] (2 sources) tree nut, unspecified Drug allergy (disorder) 5 [facility] Medications Current Medications Medication Drug Class(es) [...] 10/30/22 Status: Ordered take 1 capsule by [facility] every twenty-four hours Omeprazole 40 MG [...] 2 Chronic Other aftercare (1 source) Other detention (current) drug therapy; 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: [OTH [employer] CURRENT DRUG THERAPY] Onset: 2 Episodic Other [...] Coding Summaryon 03-19-2024 Coding Summary HTMLBase 64 XikwsidyXAk7mDq+PGhlY WQ+EO9LXWQyC67fmQMtvW 2zJ1EUAQaKNobcCDOYNVs JFsDvgiTwYT1gzONgIQJq IC8+AL1iAUWlUbehgKVpx 0M0iBF5F34bvq8cZNywlF I2BKFaErNhdeakc5kbtAz 6IDcuNmluOyBt SEZazE52EWP1sD62Sm47b PSbvNVtf0skbDm6MpKnMO WdJZP0iJqxATxwh2XhZCU kG56kkLJkk5Y6 ZFLqgDfubAQrTxOvmXS6l B9wZKqohuhfw8zciyhsBw f6gl23lZAio5J7bEV3N9C kseU4ZWTweEVi FgokuEZYyD8wvzfuc9esn fzqTlCaQUPbCQi6MKn2JT KbmRqfKkYaAW84LFC0TQX rutUrX5RrRAIj cTdvYuR9s6B9Kn1PP3EYT swcI8GQXMSIOJuhtGW+PC 64td66R2HdCevoZyr0HPC rMTH8nHW2gG0s SQIyOQvvw9R3hMT4S3Ztc gPkix6bz6xtSZIoHRvpO9 7yyOYye7X1CRCatWS5JEY uyVpnAwAlrX74 Oyc+LNTomIveu9PpMvfvv 0aar3uapKm0TvtvOCVkeb LavUfiLEJ3m8WzHe7tJCD uiXY7aHG1yA6l NfGaIwX6RDgcW256XkOmy UWcFmewO17uN8XdeRF+PH DyLma9LKRvuVxpWR9uM4V hZGRpbmctbGVm lFikMF1yWJZpshufQLHjs B1kVTItB2m9MfJpJtR1IE qvI3MwCPPzqnjcDy49lR0 nUfEgZuG5NOeh N5RbhwJ0NOLhsLIwQLxcH BX2G86hi1N2HLKeHYWuHF O4fHY7pV8ccOswtphjiCB mdDsgdmVydGlj QRkoDPhsN068ZPImnSndP kNvZGluZyBEYXRlOiAgMD QvMTkvMjAyNDwvdGQ+PHR xHRW5lIahEOWo bUMsFCbuNg3ljDextGwwT T7sFUJewwehTHWypR1nHX WeeVWcfYzzUH3iJUZxqam ri380GcGgXJH7 OLTbbBExZ8CflH3qZdRzO KZbQGDeC5TkuIJeLPcnL8 27JZxeTzH3VPQovaRjN0Y sLWFsaWduOiB0 a9U2Ki1Aq6SouvzlL1Udo RBhVhWzHcwjFAw2Z6DpEa wvdHI+VV04DEMtLD93FKq 7MOB0xBdhEEcz YXAeQ2QaaE9hCsOkFBDtL GRkOyc+PHRhYmxlIHdpZH RoPScxMDAlJyBzdHlsZT0 eZr1jAQEbEGJv sSltdLUnEtZfk2mcTPHzA LcaJQ7wqAlyU5EldHG2CQ Xwf6e3Xa07A94qL9VsrRE +XSRvrIC9vRU2 eJ2gNkTbBoG8VGtuF929S cWvoLJyTgaps7pbu2pijX z7QkD7TCNsngSlsUzcPXF 0j0UyVt83F33q IHdpZHRoPSIxNSUiIHZhb Wyhel8ogT5cUp6+PGNvbC E6mFQ1vD3uGjBbSdB8SEn oX156ShAheIKn Ueukt8ewt3tmiHe0PfVbN VYtwwQofNlzEQT1x3HgSv 31D9HxbVyov5KlHrg6wv3 8tEIxl3K9gSX1 Z1EsHOOsbsgypLFlzQqsW H6uMXNdqblhOVMvxQ9wUK MrA8w5HtRfQjR2CJljH2Z exkZ2RGFmuQIc SBOtkVMYoP5brmxws9qyi zyfYlZgVQTcGEh4CHw2OP UcdTsrWbUzRVU3UkN7QEI 5bKXnnR9seHrx xwwrgA2eVzc+ZKN8aHCaj NLPIC0pHmqzxGZ+PHRkIH G0oAqlESbdOJUhsV7cYMV bI6q1UvGgEuY8 VXgfT4KenlG3QNDajYMmO OLijHSGvV7sejkga7mmff gmKvNgBJRdUEq5AYj7DEM saWduOiBsZWZ0 RfH1OYV1tGFrdN6gxYrwi ysapM3lRew+QmlydGggRG D8BOe9U0MqVgy3ZTRgoAz tWU6ldXSuNWoo Tq1qfGqkuYcsBU9pHGHyk jpsr158UvNzi8cmVLUyfX PtKNnhAEZ2I59yl6A9CEB rMIFrCPQ3rIG0 iC4ydOpfdborxUVbdZktx aPvgIglFUqySCdsL256IJ ZclMjxXrFrNZy8X8HrKkg 1CURijCatJT9z zDVxKPbyEg2gjWuxuJmdQ W4mLFKjhtver787TdZsp6 ynKANrbJApRFtcJTA3D28 wv8T6CALiGIJf RRP0fGQ4dB6mkXqrlwpqg GVmdDsgdmVydGljYWwtYW duE078OELmzXdoSaBebOl 0U4OvMgz7IXDf pObuHG8zsIXwTXbaRp2hf GeooYqmQM2yZQIckratr1 82CeQjd8jxSTWssOVlGVb lMVP1R02iq4L3 XPYcTPZcURH5gXS3rP5zk GlnbjogbGVmdDsgdmVydG ajSYyrDVdhH175VXCggWr nPlBhdGllbnQg AXugBAh2K8KgDnxgvZT+P F55ENZkAQ81eRRqoAZkb4 rujRm6IfYfJBVmZCN9vPh sFHbur7PrREYf F92hbSGqr4P9TFWpnGpny NCwJvGggHL1vG1dMVycdg stc3oamoeyIatcw0musy4 2pW41T89xMEip ZHRoPSIzMCUiIHZhbGlnb l9syZ0eLw8+HAOjwGW3gF L5rR7gKTYtByY7BYxzK37 9InRvcCIvPjxj h8wgw0kwvHw2RwY5TBKyb dFxkClmXBF0m6LeWh32X4 9sIHdpZHRoPSIyMCUiIHZ hvAhugp3ajC1d Ii8+XKKilXE6hVF8bY9oW oNaFsV9UEihX514ZbVpdJ GpWamaY87jF1NvoSX+PHR lByg0LJHesVvd OA4crPRlOZumTw2kJCM2F aEkFkSwJVpyM7TdQQAfpb wjcpfvpYO7GYUlPNNzsX9 0Eu5dgUbvZFRa rZVOxX5eehtzg9jalotxJ iItDWTxAVp4MOt7DTDotA qaHoAzLZI9AfO4KSF4vAJ dwZ8gkMnpirbb hA7gD5UmJAZfgruuIm55x V3nGuLhVwB0FXctUiq+Q0 5NNFBOLHLGVSOHKF7GXE6 LP88GBTrbjJF+ TIVzNPR0vTmyASyyWLJty X3kDPZyB5q8QfZtXxS0GD zxX9YwTZIidlfxZj63iW4 jMhLoQcI2HDgc N2RpbhB0YIFcwADqKLpjT IO1K13cl6W0XZXaJMAcSP S0pDF7rT6jpSjdpkjhgNQ mdDsgdmVydGlj HWjnBWbyH268KZVkmOxrE eP8QhE6YeB6DvP3M8NgPb f8SGClpKsgYX0ggXQkVZq rAp1ztEmjmRix VF0bJIUrvvxhTXUruA1wC PBbtRHneIhdAJ0pZJDsbm rcz956OyGeXXJ8DMIgfLZ oV1AwwV2vGxTi ZMQsLJOgX7WkoAWkATutR 623XKdoEcM8JMWwojCwT7 VtRGFywAcaHoA6j9F0Ty6 0NyBZZWFyczwv dGQ+DHTrYSU8iPndHFjbS UUriX1kBBZaD9q4CpXbXc M9USpnL8RvDKRmcpviSk0 4oV0iTeIqRbG3 XXihG9InzmG2EJWvjNAzQ ErsIKZ1V19or5I7WGSlYM JdQJC2qQI3uI0pvXszhae gbGVmdDsgdmVy cXmbCRtuMYgiD698BBFin DsnPkZFTUFMRTwvdGQ+PH SsBJZ2gPssWXngHZLiiO8 lDLBsB5y1UhUx HdE4HKaqS9CcLRTlviveD r24lW3vNrLrEnN4WRqjG2 FtugP2QITfwXAyUBtiYFO 9V53kf4S5IHZk VYAiFIC8kJK5oH5dpVeuf jogbGVmdDsgdmVydGljYW qaCQahH277DZUdzHtzUrH sHFUhUW5szEww dGQ+WW72sw62X6VzImfiJ fg0STIhIKV1vFP6cJ5jOM HmUUwvg3M9nAH9V5BrpeF wsb9fr9aiZOIm ZRvbB45vnSQgw3K2XRNkr EG4MCJhyJleMdOfoU22Kz c+CYUztYvan5AtVutis7j xd9zcnIt6WzAu MGQjfpVcnCnvTYD0n1RbC f16C64uDLqaOWCzCEFlWK CqFBFtoEwvkq0etI7hGy7 +ODCfhBX2jEH6 oZ0vDvCcHiN7MMnrF817W tGglKGaAjavj4gvm9qaeR y4ZzQoLQIkoaGjjAceWQY 1b3SyGg99N4Cb nLlpa2VdPop9cc00nFQip 4A8fWI6S9HlCDHqouvohX SunWgeVI0xAHHvecpuUXQ qiS0gDDZmU2i1 HkVdZtX5UNsiJ3BmpcJ4V BHcfXLrFNKegHJFsY6grr diq9ervqrpElRcPSYtHOv 2FSn9AZKfpJdr FrXfPIZ5NnM3ZVD9eXPxh E8eiUdbvsxsyB0pBre+UG o8p9czbRFaLT9bxTL7VP1 5KX92rMLcs5N7 fAJ8S5PuAVZnhfywbdmpk PF4TSTyAJGwcI47Oc3xrP lkHt9sDUChJII2OCSqgUB dZ6WcyP7kQcWi KCYrNXSlC0YsxNTvSJmjM 662NYjmIjZ2YSJqhqJhQ1 ZsNCMseYojMfY1l3F6Zy3 ZCW53TF56LT22 uJOok4V1uOG8J1YeJRXga adbkacchXT1TRDqXJDalK 84Wj5ttRxxSl0lLOBgKGJ 7XUTeeQJjU4Wa mT6tUuGsJZTjQZKvR3Dzg BEhUBvpH275EVelEbH7AU YpqvWtZ8NlRERruGngUdK 7s4G3Jo2DAc25 KT52RA27oSHuh8R7rVR9Z 8HpQBSikjriflawvEL2BR OnXAAwbG63Ef1rmQtbSz2 wKWUhJHB2GLSn lKJkI2VjfI6qImVmZBIaV YDxW4XvcRAlNZbuG960YR hxEdW7YUNyqyByG6UnWZL wkPfqPyB2d1O5 Wy9HXBcnbcy6Z8OfHxmun HI+RT15GKRtPQ15jOCopO Wdy0xxfBd6HkFuIXGoFUI 9uMlbDPlvm1Kv ZXI (more content not included)... Normal [facility] Ambulance Noteon 03-17-2024 Ambulance Note [id number]#1.[address] [facility] C Urineon 03-17-2024 C Urine Urine Culture ordere d as a result of parameters set on specific urine dip and urine microsopic results. >100,000 cfu/ml Lactobacillus species Normal vaginal oleg isolated 10,000 cfu/ml Corynebacterium species (DIPTHEROID) No YOLANDE performed on this organism No pathogens isolated [facility] Comment on above: Performed By: #### 5 [id number], [id number], [id number] ####[facility] (DEFAULT)[address] [place] [address] .Auto Diff 103-15-2024 Auto [place] % 3 % Normal 1-[address] [facility] Comment on above: Performed By: #### 5 [id number], [id number], 5106629366, 76447184, 7677376182, 1106367, 6599283 #### [facility] (DEFAULT) [address] [place] [address] Baso Abs# 0.1 x10 Normal 0.0-0.[address] [facility] Comment on above: Performed By: #### 5 [id number], [id number], 9455337423, 36834063, 5058765388, 3495095, 6518346 #### [facility] (DEFAULT) [address] [place] [address] 03608 Basophils/100 WBC (Bld) 0.7 % Normal 0.2-2.0 [facility] Comment on above: Performed By: #### 5 [id number], [id number], 2885757287, 23753793, 8320607162, 8131700, 1648218 #### [facility] (DEFAULT) [address] [place] [address] 30547 Eos Abs# 0.1 x10 Normal 0.0-0.[address] [facility] Comment on above: Performed By: #### 5 [id number], 7999984150, 4087926819, 69635390, 3166532343, 5932103, 7461800 #### [facility] (DEFAULT) [address] [place] [address] 18238 Eosinophils/100 WBC (Bld) 0.7 % Low 0.9-4.[address] [facility] Comment on above: Performed By: #### 5 [id number], 4791759082, 9186507436, 04238845, 1175346907, 0401363, 4042034 #### [facility] (DEFAULT) [address] [place] [address] 00540 Lymph Abs# 2.2 x10 Normal 1.3-2.[address] [facility] Comment on above: Performed By: #### 5 [id number], 2510548198, 5422879835, 89718656, 4725516724, 4162670, 3295360 #### [facility] (DEFAULT) [address] [place] [address] 75857 Lymphocytes/100 WBC (Bld) 14 % Normal 14-[address] [facility] Comment on above: Performed By: #### 5 [id number], 0563694901, 9137323275, 62355516, 0778650839, 9893005, 8242142 #### [facility] (DEFAULT) [address] [place] [address] 31671 Llano Abs# 0.5 x10 Normal 0.0-0.[address] [facility] Comment on above: Performed By: #### 5 [id number], 4129335482, 5371314151, 75111579, 4328405805, 2423078, 0665932 #### [facility] (DEFAULT) [address] [place] [address] 79885 Neut Abs# 13.5 x10 High 1.5-9.[address] [facility] Comment on above: Result Comment: Slid e Reviewed Performed By: #### 5 [id number], 0793973604, 1730165540, 12335723, 8505182575, 8552763, 8862390 #### [facility] (DEFAULT) [address] [place] [address] Neutrophils/100 WBC (Bld) 82 % Normal 44-[address] [facility] Comment on above: Performed By: #### 5 [id number], 6474757867, 0661716407, 26718156, 8941941281, 9945298, 9831230 #### [facility] (DEFAULT) [address] [place] [address] 24622 CBC w/ Auto Diffon 4 Erythrocyte distribution width (RBC) [Ratio] 13.3 % Normal 11.5-15.[address] [facility] Comment on above: Performed By: #### 5 [id number], 6843546309, 3696269846, 49370434, 7655214383, 2799842, 5405999 #### [facility] (DEFAULT) [address] [place] [address] 18637 Hematocrit (Bld) [Volume fraction] 45.0 % High 33.7-40.[address] [facility] Comment on above: Performed By: #### 5 [id number], 8391927336, 1378754403, 29201619, 8358826337, 4656370, 5270070 #### [facility] (DEFAULT) [address] [place] [address] 96820 Hemoglobin (Bld) [Mass/Vol] 15.0 g/dL Normal 11.3-15.[address] [facility] Comment on above: Performed By: #### 5 [id number], 7075002336, 4159945475, 60677390, 8706902007, 9514329, 7559832 #### [facility] (DEFAULT) [address] [place] [address] 69802 Man Diff? Auto Invalid Interpretation Code [facility] Comment on above: Performed By: #### 5 [id number], 4787286573, 1213809261, 02287395, 5354145947, 6678306, 5782909 #### [facility] (DEFAULT) [address] [place] [address] 44885 MCH (RBC) [Entitic mass] 32 pg Normal 24-[address] [facility] Comment on above: Performed By: #### 5 [id number], 5491611530, 1967210652, 80021500, 2987765573, 7830565, 4480375 #### [facility] (DEFAULT) [address] [place] [address] 43480 MCHC (RBC) [Mass/Vol] 33 g/dL Normal 26-37 [facility] Comment on above: Performed By: #### 5 [id number], 4303855829, 6578074876, 26124972, 2349922242, 3107971, 6967293 #### [facility] (DEFAULT) [address] [place] [address] 95885 MCV (RBC) [Entitic vol] 95 fL Normal 81-100 [facility] Comment on above: Performed By: #### 5 [id number], 5001958403, 5356696684, 33055240, 2071844609, 0175967, 1780092 #### [facility] (DEFAULT) [address] [place] [address] 02508 Platelet 292 x10 Normal 138-[address] [facility] Comment on above: Performed By: #### 5 [id number], 4510549890, 8073528066, 09679391, 6591718117, 3251837, 9022889 #### [facility] (DEFAULT) [address] [place] [address] 86335 Platelet mean volume (Bld) [Entitic vol] 8.7 fL Normal 6.3-10.[address] [facility] Comment on above: Performed By: #### 5 [id number], 5362667245, 7166183696, 19189074, 7611688427, 9604973, 2219718 #### [facility] (DEFAULT) [address] [place] [address] RBC 4.74 x10 Normal 3.70-5.[address] [facility] Comment on above: Performed By: #### 5 309153552, 9535186519, 4136843814, 84954879, 7616645943, 1654382, 4141794 #### [facility] (DEFAULT) [address] [place] [address] WBC 16.4 x10 High 3.5-10.[address] [facility] Comment on above: Performed By: #### 5 158405145, 2561557991, 4729159250, 86701852, 1976079037, 0257186, 5118508 #### [facility] (DEFAULT) [address] [place] [address] CMP Standardon 03-15-2024 eGFR Non AA >60 Invalid Interpretation Code [facility] Comment on above: Performed By: #### 5 [id number], 1030915610, 4908171961, 19873018, 4444406210, 5958867, 9064889 #### [facility] (DEFAULT) [address] [place] [address] eGFR AA >60 Invalid Interpretation Code [facility] Comment on above: Performed By: #### 5 [id number], 0349727738, 6923601673, 21484342, 0961304161, 1408164, 3657444 #### [facility] (DEFAULT) [address] [place] [address] Albumin [Mass/Vol] 4.1 g/dL Normal 3.5-5.0 [facility] Comment on above: Performed By: #### 5 [id number], 1800122484, 9269661767, 45975455, 7870884780, 0217547, 2904934 #### [facility] (DEFAULT) [address] [place] [address] Albumin/Globulin [Mass ratio] 1.3 {ratio} Low 1.4-2.[address] [facility] Comment on above: Performed By: #### 5 [id number], 0917720792, 1757617480, 51470669, 7970460839, 9831884, 9073933 #### [facility] (DEFAULT) [address] [place] [address] 78345 Alk Phos 39 IU/L Normal 32-[address] [facility] Comment on above: Performed By: #### 5 [id number], 9375453344, 6213064076, 64254813, 6346555440, 7355868, 1818455 #### [facility] (DEFAULT) [address] [place] [address] 25238 ALT [Catalytic activity/Vol] 32.0 U/L Normal 14.0-54.[address] [facility] Comment on above: Performed By: #### 5 [id number], 7626632532, 1957159552, 07716522, 7581928496, 5427890, 6376741 #### [facility] (DEFAULT) [address] [place] [address] 60931 Anion gap [Moles/Vol] 13.0 mmol/L Normal 5.0-19.0 [facility] Comment on above: Performed By: #### 5 [id number], 7800756184, 7356241623, 61496672, 3905111781, 9056952, 6435876 #### [facility] (DEFAULT) [address] [place] [address] 01763 AST [Catalytic activity/Vol] 25 U/L Normal 15-[address] [facility] Comment on above: Performed By: #### 5 [id number], 8851052165, 2528170099, 14763739, 6676098331, 6777629, 2121105 #### [facility] (DEFAULT) [address] [place] [address] 44573 Bili Total 1.4 mg/dL High 0.3-1.[address] [facility] Comment on above: Performed By: #### 5 [id number], 4060425432, 3105196258, 70717681, 7171641133, 1383463, 2366399 #### [facility] (DEFAULT) [address] [place] [address] 43177 Calcium [Mass/Vol] 8.8 mg/dL Low 8.9-10.3 [facility] Comment on above: Performed By: #### 5 [id number], 5749217603, 0401915055, 67793131, 1765919220, 0645372, 5163988 #### [facility] (DEFAULT) [address] [place] [address] 39915 Chloride [Moles/Vol] 105 mmol/L Normal 101-111 [facility] Comment on above: Performed By: #### 5 [id number], 6818913494, 1078514528, 93114021, 5254140734, 1418337, 6990237 #### [facility] (DEFAULT) [address] [place] [address] 69601 CO2 [Moles/Vol] 24 mmol/L Normal 21-[address] [facility] Comment on above: Performed By: #### 5 [id number], 3820926104, 5195534772, 16802892, 8914280163, 6024308, 2853747 #### [facility] (DEFAULT) [address] [place] [address] 00054 Creatinine [Mass/Vol] 0.72 mg/dL Normal 0.60-1.30 [facility] Comment on above: Performed By: #### 5 [id number], 1940438387, 5698643611, 57452708, 9957268544, 1093221, 4679870 #### [facility] (DEFAULT) [address] [place] [address] 02172 Globulin (S) [Mass/Vol] 3.0 g/dL Normal 1.5-4.3 [facility] Comment on above: Performed By: #### 5 [id number], 2580327131, 9228262355, 69893608, 2994854941, 6785210, 6537922 #### [facility] (DEFAULT) [address] [place] [address] 17588 Glucose [Mass/Vol] 124.0 mg/dL High 74.0-118.0 [facility] Comment on above: Performed By: #### 5 [id number], 6025235465, 9629886503, 65942952, 8945688740, 8727027, 4731822 #### [facility] (DEFAULT) [address] [place] [address] 63801 Osmolality 278 mOsm/L Invalid Interpretation Code [facility] Comment on above: Performed By: #### 5 [id number], 9377678496, 8344236250, 74879781, 1590099824, 1189820, 3004954 #### [facility] (DEFAULT) [address] [place] [address] 13526 Potassium [Moles/Vol] 4.0 mmol/L Normal 3.6-5.1 [facility] Comment on above: Performed By: #### 5 [id number], [id number], [id number], [id number], [id number], [id number], 8621382 #### [facility] (DEFAULT) [address] [place] [address] 33770 Protein [Mass/Vol] 7.1 g/dL Normal 6.5-8.1 [facility] Comment on above: Performed By: #### 5 [id number], [id number], [id number], [id number], [id number], 2822612, 2750433 #### [facility] (DEFAULT) [address] [place] [address]8531 Sodium [Moles/Vol] 138.0 mmol/L Normal 136.0-144.0 [facility] Comment on above: Performed By: #### 5 [id number], [id number], [id number], 40893152, [id number], 7236615, 9276815 #### [facility] (DEFAULT) [address] [place] [address] 93660 Urea nitrogen [Mass/Vol] 15 mg/dL Normal 8-[address] [facility] Comment on above: Performed By: #### 5 [id number], [id number], [id number], [id number], [id number], 2162172, 9668239 #### [facility] (DEFAULT) [address] [place] [address] 41157 Urea nitrogen/Creatinine [Mass ratio] 20.8 mg/mg High 4.6-16.[address] [facility] Comment on above: Performed By: #### 5 [id number], [id number], [id number], 56630092, [id number], 2168603, 2067309 #### [facility] (DEFAULT) [address] [place] [address] Breakpoint Chem Normal [facility] Comment on above: Performed By: #### 5 [id number], [id number], [id number], [id number], [id number], 3092251, 9804082 #### [facility] (DEFAULT) [address] [place] [address]484 ED Clinical Summaryon 2023 ED Clinical Summary [facility] - Emergency Department [address] [place] [address] ED Clinical Summary PERSON INFORMATION Name: HORACIO KEATING Age: 48 Years Sex: FEMALE : 1975 MRN: Acct#: Visit Reason: Shortness of breath; Anxiety; Blood pressure check; SOB Arrival: 03/15/2024 17:56:51 Discharge: 03/15/2024 20:31:00 LOS: 000 02:35 Check In: 03/15/2024 17:56:51 Checkout:03/15/2024 20:31:00 Address: [address] [place] [address] PCP: SAMI MARINELLI PROVIDER INFORMATION Provider Role [...] . Physical Exa (more content not included)... [facility] ED Note - Physicianon 2023 ED Note [...] No lymphadenopathy. Psychiatric: (more content not included)... [facility] ED Note-Nursingon 03-15-2024 ED Note-Nursing Patient presents to the ER via [facility] for shortness of breath, anxiety. Patient [...] cannula. 12 lead was regular in rate [facility] ED Patient Summaryon 024 ED Patient Summary [facility] - Emergency Department [address] [place] [address] PATIENT DISCHARGE INSTRUCTIONS Patient Information Name: HORACIO KEATING Age: 48 Years Date of : 1975 Reason For Visit: Shortness of breath; Anxiety; Blood pressure check; SOB Arrival Time: 03/15/2024 17:56:51 Primary Care Physician: SAMI MARINELLI Attending Physician: Nicola Neff DO Comment: Visit Diagnosis: Diagnoses This Visit Anxiety ([id number]) Blood pressure check ([id number]) Hypertension (I10) Panic attack (F41.0) Shortness of breath ([id number]) Urinary tract infection (N39.0) The Pharmacy at [facility] is open Friday through Friday from 9A [...] alcohol and/or drug addiction problems; contact the [facility] 23/06 Crisis Hotline -Text 4HSFX to 182214. If you received any narcotics, sedation, or [...] legal documents With: Address: When: SAMI MARINELLI [address] [place], [place] [address] Business (1) Within 3 to 5 days Comments: Call for follow up appointment Return if symptoms worsen Medication Information: The exam and treatment you received today in the [facility] Emergency Department were for an urgent problem and are not intended as complete care. It is important for you to follow up with a doctor, nurse practitioner, or physician?s community assistant for ongoing care. If your symptoms [...] so we can reach you if necessary. [facility] Emergency Department has provided you with a complete list of medications post discharge. Please inform your battery charger tester/provider of your visit and for further instruction [...] Vitals an (more content not included)... Normal [facility] Extra [facility] 03-15-2024 Tube Collected Yes Invalid Interpretation Code [facility] Comment on above: Performed By: #### 5 [id number], [id number], [id number], [id number], [id number], 2431785, [id number] #### [facility] (DEFAULT) [address] [place] [address] Extra Redon 03-15-2024 Tube Collected Yes Invalid Interpretation Code [facility] Comment on above: Performed By: #### 5 [id number], [id number], [id number], [id number], [id number], 5400348, [id number] #### [facility] (DEFAULT) [address] [place] [address] 05073 PTon 03-15-2024 INR Coag (PPP) [Relative time] 0.94 {INR} Normal 0.91-1.[address] [facility] Comment on above: Performed By: #### 5 [id number], [id number], [id number], [id number], [id number], 8835043, 8776432 #### [facility] (DEFAULT) [address] [place] [address] PT 9.8 second(s) Normal 9.7-11.[address] [facility] Comment on above: Performed By: #### 5 [id number], [id number], [id number], [id number], [id number], 4763692, 7396645 #### [facility] (DEFAULT) [address] [place] [address] 89885 TnI HSon 03-15-2024 Troponin I High Sensitivity 7.7 pg/mL Normal <=15.0 [facility] Comment on above: Performed By: #### 5 [id number], [id number], [id number], [id number], [id number], [id number], [id number] #### [facility] (DEFAULT) [address] [place] [address]97 UA Ceaix5dm 03-15-2024 UA Amorph. 1+ Normal [facility] Comment on above: Order Comment: Urina lysis Microscopic order added on by Discern Expert Rules system. Performed By: #### 5 [id number], [id number], [id number] ####[facility] (DEFAULT)[address] [place] [address] 79767 UA Bacteria 3+ Normal [facility] Comment on above: Order Comment: Urina lysis Microscopic order added on by Discern Expert Rules system. Performed By: #### 5 [id number], [id number], [id number] ####[facility] (DEFAULT)[address] [place] [address] UA Mucous 1+ [facility] Comment on above: Order Comment: Urina lysis Microscopic order added on by Discern Expert Rules system. Performed By: #### 5 [id number], [id number], [id number] ####[facility] (DEFAULT)[address] [place] [address] UA RBC 3-5 [facility] Comment on above: Order Comment: Urina lysis Microscopic order added on by Discern Expert Rules system. Performed By: #### 5 [id number], [id number], [id number] ####[facility] (DEFAULT)[address] [place] [address] UA Renal Epi Rare [facility] Comment on above: Order Comment: Urina lysis Microscopic order added on by [employer] Expert Rules system. Performed By: #### 5 [id number], [id number], [id number] ####[facility] (DEFAULT)[address] [place] [address] UA Squam Epi Many [facility] Comment on above: Order Comment: Urina lysis Microscopic order added on by [employer] Rules system. Performed By: #### 5 [id number], [id number], [id number] ####[facility] (DEFAULT)[address] [place] [address] UA WBC 3-5 [facility] Comment on above: Order Comment: Urina lysis Microscopic order added on by [employer] Rules system. Performed By: #### 5 [id number], [id number], [id number] ####[facility] (DEFAULT)[address] [place] [address] UA w Culture if Ind Standard on 03-15-2024 Breakpoint UA [facility] Comment on above: Performed By: #### 5 [id number], [id number], [id number] ####[facility] (DEFAULT)[address] [place] [address] 46538 Color (U) Yellow Normal [facility] Comment on above: Performed By: #### 5 [id number], [id number], [id number] ####[facility] (DEFAULT)[address] [place] [address] 72488 Culture? Indicated Invalid Interpretation Code [facility] Comment on above: Result Comment: Resu lt created by rule GL_MAGR_ADD_UA_CULT Result created by rule GL_MAGR_ADD_UA_CULT Result created by rule GL_MAGR_ADD_UA_CULT1 Result created by rule GL_MAGR_ADD_UA_CULT Performed By: #### 5 [id number], [id number], [id number] ####[facility] (DEFAULT)[address] [place] [address] 38715 Glucose (U) [Mass/Vol] Negative Normal [facility] Comment on above: Performed By: #### 5 [id number], [id number], [id number] ####[facility] (DEFAULT)[address] [place] [address] 16525 Ketones Ql (U) Negative Normal [facility] Comment on above: Performed By: #### 5 [id number], [id number], [id number] ####[facility] (DEFAULT)[address] [place] [address] 36373 Micro? Indicated Invalid Interpretation Code [facility] Comment on above: Result Comment: Resu lt created by rule GL_MAGR_ADD_UA_MICRO Performed By: #### 5 [id number], [id number], [id number] ####[facility] (DEFAULT)[address] [place] [address] 57056 UA Bilirubin Negative Normal [facility] Comment on above: Performed By: #### 5 [id number], [id number], [id number] ####[facility] (DEFAULT)[address] [place] [address] 34630 UA Blood TRACE Abnormal NEGATIVE [facility] Comment on above: Performed By: #### 5 [id number], [id number], [id number] ####[facility] (DEFAULT)[address] [place] [address] 42571 UA Clarity SL CLOUDY Abnormal CLEAR [facility] Comment on above: Performed By: #### 5 [id number], [id number], [id number] ####[facility] (DEFAULT)[address] [place] [address] 83791 UA Leuk Est LARGE Abnormal NEGATIVE [facility] Comment on above: Performed By: #### 5 [id number], [id number], [id number] ####[facility] (DEFAULT)[address] [place] [address] 77093 UA Nitrite Negative Normal NEGATIVE [facility] Comment on above: Performed By: #### 5 [id number], [id number], [id number] ####[facility] (DEFAULT)[address] [place] [address] UA pH 6.0 Normal 5-[address] [facility] Comment on above: Performed By: #### 5 [id number], [id number], [id number] ####[facility] (DEFAULT)[address] [place] [address] UA Protein Negative Normal NEGATIVE [facility] Comment on above: Performed By: #### 5 [id number], [id number], [id number] ####[facility] (DEFAULT)[address] [place] [address] UA Spec Grav 1.015 Normal 1.001-1.[address] [facility] Comment on above: Performed By: #### 5 [id number], [id number], [id number] ####[facility] (DEFAULT)[address] [place] [address] 08722 UA Urobilinogen 0.2 mg/dL Normal 0.2-1.[address] [facility] Comment on above: Performed By: #### 5 [id number], [id number], [id number] ####[facility] (DEFAULT)[address] [place] [address] Urine Source Clean Catch Normal [facility] Comment on above: Performed By: #### 5 [id number], [id number], [id number] ####[facility] (DEFAULT)[address] [place] [address] 42964 XR Chest 1 View Frontalon XR Chest [...] MD 03/15/24 7:34 pm Technologist: Lizzy BRICEÑO [facility] Basic Metabolic Panelon 08-01 Anion gap [Moles/Vol] 10.3 mmol/L Normal 6.0-15.0 [facility] Comment on above: Performed By: #### L IPID, BMP #### [facility] [address] [place] [address] [place] Calcium [Mass/Vol] 9.1 mg/dL Normal 8.6-10.3 [facility] Comment on above: Performed By: #### L IPID, BMP #### [facility] [address] [place] [id number] [place] Chloride [Moles/Vol] 107 mmol/L Normal 98-107 [facility] Comment on above: Performed By: #### L IPID, BMP #### [facility] [address] [place] [id number] [place] CO2 [Moles/Vol] 26.7 mmol/L Normal 21.0-31.0 [facility] Comment on above: Performed By: #### L IPID, BMP #### [facility] [address] [place] [id number] [place] Creatinine [Mass/Vol] 0.77 mg/dL Normal 0.60-1.20 [facility] Comment on above: Performed By: #### L IPID, BMP #### [facility] [address] [place] [id number] [place] GFR/1.73 sq M.predicted MDRD (S/P/Bld) [Vol rate/Area] mL/min/{1.73_m2} Normal [facility] Comment on above: Performed By: #### L IPID, BMP #### [facility] [address] Glucose [Mass/Vol] 97 mg/dL Normal 70-100 [facility] Comment on above: Result Comment: [facility] Glucose Reference Range is dependent on time and content of last meal. Glucose of more than 200 mg/dL in a nonstressed, ambulatory subject supports the diagnosis of Diabetes Mellitus. ADA recommended reference range Performed By: #### L IPID, BMP #### [facility] [address] Potassium [Moles/Vol] 4.0 mmol/L Normal 3.5-5.1 [facility] Comment on above: Performed By: #### L IPID, BMP #### [facility] [address] [place] [address] [place] Sodium [Moles/Vol] 140 mmol/L Normal 136-145 [facility] Comment on above: Performed By: #### L IPID, BMP #### [facility] [address] [place] [address] [place] Urea nitrogen [Mass/Vol] 10 mg/dL Normal 7-[address] [facility] Comment on above: Performed By: #### L IPID, BMP #### [facility] [address] [place] [address] [place] Calcium [Mass/volume] in Ser um or PlasmaOrdered By: Dedrick Fuller on 08-15-2023 Calcium [Mass/Vol] 9.1 mg/dL 8.6-10.3 [facility] Carbon dioxide, total [Moles /volume] in Serum or PlasmaOrdered By: Dedrick Fuller on 08-15-2023 CO2 [Moles/Vol] 26.7 mmol/L 21.0-31.0 [facility] Chloride [Moles/volume] in S altagracia or PlasmaOrdered By: Dedrick Fuller on 08-15-2023 Chloride [Moles/Vol] 107 mmol/L 98-107 [facility] Cholesterol [Mass/volume] in Serum or PlasmaOrdered By: Dedrick Fuller on 08-15-2023 Cholesterol [Mass/Vol] 166 mg/dL 140-200 [facility] Comment on above: Chol less than 200 m g/dl low riskChol 201-239 mg/dl borderline riskChol 240 mg/dl and greater high risk Cholesterol in LDL Calc [Mas s/Vol]Ordered By: Dedrick Fuller on 08-15-2023 Cholesterol in LDL [Mass/Vol] 95 mg/dL 0-[address] [facility] Comment on above: LDL ATP III CLASSIFI CATIONLDL less than 100 mg/dL OptimalLDL 100-129 mg/dL Near or above optimalLDL 130-159 mg/dL Borderline highLDL 160-189 mg/dL HighLDL greater than 189 mg/dL Very high Cholesterol in VLDL Calc [Ma ss/Vol]Ordered By: Dedrick Fuller on 08-15-2023 Cholesterol in VLDL [Mass/Vol] 32 mg/dL [facility] Creatinine [Mass/volume] in Serum or PlasmaOrdered By: Dedrick Fuller on 08-15-2023 Creatinine [Mass/Vol] 0.77 mg/dL 0.60-1.20 [facility] Glucose [Mass/volume] in Ser um or PlasmaOrdered By: Dedrick Fuller on 08-15-2023 Glucose [Mass/Vol] 97 mg/dL 70-100 [facility] Comment on above: ADA recommended refe rence rangeRandom Glucose Reference Range is dependent on time and content of last meal. Glucose of more than 200 mg/dL in a nonstressed, ambulatory subject supports the diagnosis of Diabetes Mellitus. Lipid Panelon 08-15-2023 Cholesterol [Mass/Vol] 166 mg/dL Normal 140-200 [facility] Comment on above: Result Comment: Chol less than 200 mg/dl low risk Chol 201-239 mg/dl borderline risk Chol 240 mg/dl and greater high risk Performed By: #### L IPID, BMP #### [address] Cholesterol in HDL [Mass/Vol] 39 mg/dL Normal 23-[address] [facility] Comment on above: Result Comment: HDL CHOL ATP-III CLASSIFICATION Cardiovascular Risk HDL > or equal to 60 mg/dL LOW HDL < 40 mg/dL HIGH Performed By: #### L IPID, BMP #### [facility] [address] [place] [address] Cholesterol.total/Mirta sterol in HDL [Mass ratio] 4.3 {ratio} Normal <5.[address] [facility] Comment on above: Result Comment: PERF ORMED BY: [place] [address] PATHOLOGIST LEARNING SPECIALIST IRMA MARCELO M.D. Performed By: #### L IPID, BMP #### [facility] [address] LDL Cholesterol,Calculated 95 mg/dL Normal 0-[address] [facility] Comment on above: Result Comment: LDL ATP III CLASSIFICATION LDL less than 100 mg/dL Optimal LDL 100-129 mg/dL Near or above optimal LDL 130-159 mg/dL Borderline high LDL 160-189 mg/dL High LDL greater than 189 mg/dL Very high Performed By: #### L IPID, BMP #### [facility] [address] [place] [address] Triglyceride w/Reflex 162 mg/dL High 0-149 [facility] Comment on above: Result Comment: TRIG ATP III CLASSIFICATION TRIG less than 150 mg/dL Normal TRIG 150-199 mg/dL Borderline high TRIG 200-500 mg/dL High TRIG greater than 500 mg/dL Very high Standard traceable to the Center for Disease Conrtrol and Prevention (CDC) test method. Performed By: #### L IPID, BMP #### [facility] [address] [place] [address] VLDL CHOLESTEROL 32 mg/dL Normal [facility] Comment on above: Performed By: #### L IPID, BMP #### [facility] [address] [place] [address] No Panel InformationOrdered By: Dedrick Fuller on 08-15-2023 Estimated GFR (CKD-EPI) > 60.0 mL/Min [facility] Creatinine Clearance (Chem N/A [facility] Potassium [Moles/volume] in Serum or PlasmaOrdered By: Dedrick Fuller on 08-15-2023 Potassium [Moles/Vol] 4.0 mmol/L 3.5-5.1 [facility] Serum or plasma anion gap de terminationOrdered By: Dedrick Fuller on 08-15-2023 Anion gap [Moles/Vol] 10.3 mmol/L 6.0-15.0 [facility] Serum or plasma high density lipoprotein (HDL) cholesterol measurementOrdered By: Dedrick Fuller on 08-15-2023 Cholesterol in HDL [Mass/Vol] 39 mg/dL 23- [facility] Comment on above: HDL CHOL ATP-III CLA SSIFICATION Cardiovascular RiskHDL > or equal to 60 mg/dL LOWHDL < 40 mg/dL HIGH Serum or plasma total choles terol/high density lipoprotein (HDL) cholesterol mass ratOrdered By: Dedrick Fuller on 08-15-2023 Cholesterol.total/Mirta sterol in HDL [Mass ratio] 4.3 {ratio} <5.[address] [facility] Sodium [Moles/volume] in Ser um or PlasmaOrdered By: Dedrick Fuller on 08-15-2023 Sodium [Moles/Vol] 140 mmol/L 136-145 [facility] Triglyceride [Mass/volume] i n Serum or PlasmaOrdered By: Dedrick Fuller on 08-15-2023 Triglyceride [Mass/Vol] 162 mg/dL 0-149 [facility] Comment on above: TRIG ATP III CLASSIF ICATIONTRIG less than 150 mg/dL NormalTRIG 150-199 mg/dL Borderline highTRIG 200-500 mg/dL High TRIG greater than 500 mg/dL Very highStandard traceable to the Center for Disease Conrtrol and Prevention (CDC) test method. Urea nitrogen [Mass/volume] in Serum or PlasmaOrdered By: Dedrick Fuller on 08-15-2023 Urea nitrogen [Mass/Vol] 10 mg/dL 7- [facility] GTT 2 HRon 11-09-2022 Glucose [Mass/Vol] 107 mg/dL Critically high 74-106 [facility] Comment on above: Performed By: #### U LG, CRP #### [facility] [address] [place] [address] [address] Soo Donnelly Glucose [Mass/Vol] 152 mg/dL Normal [facility] Comment on above: Performed By: #### U LG, CRP #### [facility] [address] [place], [place] [address] Dr. Soo Donnelly Glucose [Mass/Vol] 121 mg/dL Normal [facility] Comment on above: Performed By: #### U LG, CRP #### [facility] [address] [place], [place] [address] Dr. Soo Donnelly Facesheeton 11-05-2022 Facesheet [id number] .00CD:127 Normal [facility] Physician Referralon Physician Referral [id number] .00CD:127 [address] [facility] CT ABD/PELV W CONon 10-01-20 CT [...] ELENA SAUCEDA Date: 2022-10-01 10:31 Normal [facility] CBC AUTO DIFFon 09-18-2022 BASO # 0.0 103/ul Normal 0.0-0.1 [facility] Comment on above: Performed By: #### A NAD #### [facility] [address] [place] [address] [address] Soo Donnelly Basophils/100 WBC (Bld) 0.4 % Normal 0.2-2.0 [facility] Comment on above: Performed By: #### A NAD #### [facility] [address] [place] [address] [address] Soo Donnelly EO # 0.1 103/ul Normal 0.0-0.7 [facility] Comment on above: Performed By: #### A NAD #### [facility] [address] [place] [address] [address] Soo Donnelly Eosinophils/100 WBC (Bld) 1.8 % Normal 0.9-7.0 [facility] Comment on above: Performed By: #### A NAD #### [facility] [address] [place] [address] [address] Soo Donnelly Erythrocyte distribution width (RBC) [Ratio] 11.9 % Normal 11.0-15.0 [facility] Comment on above: Performed By: #### A NAD #### [facility] [address] [place] [address] [address] Soo Donnelly Hematocrit (Bld) [Volume fraction] 43.9 % Normal 36.0-48.0 [facility] Comment on above: Performed By: #### A NAD #### [facility] [address] [place] [address] [address] Soo Donnelly Hemoglobin (Bld) [Mass/Vol] 14.6 g/dL Normal 12.0-16.0 [facility] Comment on above: Performed By: #### A NAD #### [facility] [address] [place] [address] Dr. Soo Donnelly IG # 0.01 10e3/ul Normal 0.00-0.03 [facility] Comment on above: Performed By: #### A NAD #### [facility] [address] [place] [address] Dr. Soo Donnelly IG % 0.1 % Normal 0.0-0.5 [facility] Comment on above: Performed By: #### A NAD #### [facility] [address] [place] [address] Dr. Soo Donnelly LYMPH # 2.7 103/ul Normal 1.2-3.8 [facility] Comment on above: Performed By: #### A NAD #### [facility] [address] [place] [address] Dr. Soo Donnelly Lymphocytes/100 WBC (Bld) 39.9 % Normal 20.5-60.0 [facility] Comment on above: Performed By: #### A NAD #### [facility] [address] [place] [address] Dr. Soo Donnelly MANUAL DIFF REQ NO Normal [facility] Comment on above: Performed By: #### A NAD #### [facility] [address] [place] [address] Dr. Soo Donnelly MCH (RBC) [Entitic mass] 31.7 pg Normal 26.7-34.0 [facility] Comment on above: Performed By: #### A NAD #### [facility] [address] [place] [address] Dr. Soo Donnelly MCHC (RBC) [Mass/Vol] 33.3 g/dL Normal 29.9-35.2 [facility] Comment on above: Performed By: #### A NAD #### [facility] [address] [place] [address] Dr. Soo Donnelly MCV (RBC) [Entitic vol] 95.4 fL Normal 81.0-99.0 [facility] Comment on above: Performed By: #### A NAD #### [facility] [address] [place] [address] Dr. Soo Donnelly MONO # 0.4 103/ul Normal 0.3-0.8 [facility] Comment on above: Performed By: #### A NAD #### [facility] [address] [place] [address] Dr. Soo Donnelly Monocytes/100 WBC (Bld) 5.9 % Normal 1.7-12.0 [facility] Comment on above: Performed By: #### A NAD #### [facility] [address] [place] [address] Dr. Soo Donnelly NEUT # 3.5 103/ul Normal 1.4-6.5 [facility] Comment on above: Performed By: #### A NAD #### [facility] [address] [place] [address] Dr. Soo Donnelly Neutrophils/100 WBC (Bld) 51.9 % Normal 43.0-75.0 [facility] Comment on above: Performed By: #### A NAD #### [facility] [address] [place] [address] Dr. Soo Donnelly Platelet mean volume (Bld) [Entitic vol] 10.8 fL Normal 9.5-13.5 [facility] Comment on above: Performed By: #### A NAD #### [facility] [address] [place] [address] Dr. Soo Donnelly PLT 220 103/ul Normal 150-450 [facility] Comment on above: Performed By: #### A NAD #### [facility] [address] [place] [address] Dr. Soo Donnelly RBC 4.60 106/ul Normal 4.20-5.40 [facility] Comment on above: Performed By: #### A NAD #### [facility] [address] [place] [address] Dr. Soo Donnelly WBC 6.8 103/ul Normal 4.0-11.0 [facility] Comment on above: Performed By: #### A NAD #### [facility] [address] [place] [address] Dr. Soo CORLEY URINE PROFILEon 2 Bilirubin Ql (U) Negative Normal NEGATIVE [facility] Comment on above: Performed By: #### U LG, CRP #### [facility] [address] [place] [address] Dr. Soo Donnelly Clarity (U) CLEAR Normal CLEAR [facility] Comment on above: Performed By: #### U LG, CRP #### [facility] [address] [place] [address] Dr. Soo Donnelly Color (U) LT. YELLOW Normal YELLOW [facility] Comment on above: Performed By: #### U LG, CRP #### [facility] [address] [place] [address] Dr. Soo CORETZ A micrscopic examination will be performed if indicated. Normal [facility] Comment on above: Performed By: #### U LG, CRP #### [facility] [address] [place] [address] Dr. Soo Donnelly Glucose Ql (U) Negative Normal NEGATIVE [facility] Comment on above: Performed By: #### U LG, CRP #### [facility] [address] [place] [address] Dr. Soo Donnelly Hemoglobin Ql (U) Negative Normal NEGATIVE [facility] Comment on above: Performed By: #### U LG, CRP #### [facility] [address] [place] [address] Dr. Soo Donnelly Ketones Ql (U) Negative Normal NEGATIVE [facility] Comment on above: Performed By: #### U LG, CRP #### [facility] [address] [place] [address] Dr. Soo Donnelly LEUKOCYTES Negative Normal NEGATIVE [facility] Comment on above: Performed By: #### U LG, CRP #### [facility] [address] [place] [address] Dr. Soo Donnelly Nitrite Ql (U) Negative Normal NEGATIVE [facility] Comment on above: Performed By: #### U LG, CRP #### [facility] [address] [place] [address] Dr. Soo Donnelly pH (U) 6.0 [pH] Normal 5-9 [facility] Comment on above: Performed By: #### U LG, CRP #### [facility] [address] [place] [address] Dr. Soo Donnelly SPEC GRAVITY 1.015 Normal 1.005-<=1.02 5 [facility] Comment on above: Performed By: #### U LG, CRP #### [facility] [address] [place] [address] Dr. Soo Donnelly UA PROTEIN Negative Normal NEGATIVE/ TRACE [facility] Comment on above: Performed By: #### U LG, CRP #### [facility] [address] [place] [address] Dr. Soo Donnelly UR MICRO IND NOT INDICATED Normal [facility] Comment on above: Performed By: #### U LG, CRP #### [facility] [address] [place] [address] Dr. Soo Donnelly Urobilinogen Qn (U) 0.2 {Roma'U}/dL Normal 0.2 - 1. 0 [facility] Comment on above: Performed By: #### U LG, CRP #### [facility] [address] [place] [address] Dr. Soo Donnelly PROF CHEM 8 (BAS METB)on Anion gap [Moles/Vol] 10.2 mmol/L Normal [facility] Comment on above: Performed By: #### B MP #### [facility] [address] [place] [address] Dr. Soo Donnelly Calcium [Mass/Vol] 8.7 mg/dL Normal 8.5-10.1 [facility] Comment on above: Performed By: #### B MP #### [facility] [address] [place] [address] Dr. Soo Donnelly Chloride [Moles/Vol] 103 mmol/L Normal 98-107 [facility] Comment on above: Performed By: #### B MP #### [facility] [address] [place] [address] Dr. Soo Donnelly CO2 [Moles/Vol] 27.9 mmol/L Normal 21.0-32.0 [facility] Comment on above: Performed By: #### B MP #### [facility] [address] [address] [address] Soo Donnelly Creatinine [Mass/Vol] 0.80 mg/dL Normal 0.55-1.02 [facility] Comment on above: Performed By: #### B MP #### [facility] [address] [address] [address] Soo Donnelly EGFR-AF GHANAIAN >60 Normal >=60 [facility] Comment on above: Performed By: #### B MP #### [facility] [address] [address] [address] Soo Donnelly EGFR-NON AF GHANAIAN >60 Normal >=60 [facility] Comment on above: Performed By: #### B MP #### [facility] [address] [address] [address] Soo Donnelly Glucose [Mass/Vol] 103 mg/dL Normal 74-106 [facility] Comment on above: Performed By: #### B MP #### [facility] [address] [address] [address] Soo Donnelly Potassium [Moles/Vol] 4.1 mmol/L Normal 3.5-5.1 [facility] Comment on above: Performed By: #### B MP #### [facility] [address] [address] [address] Soo Donnelly Sodium [Moles/Vol] 137 mmol/L Normal 136-145 [facility] Comment on above: Performed By: #### B MP #### [facility] [address] [place] [address] Dr. Soo Donnelly Urea nitrogen [Mass/Vol] 11.0 mg/dL Normal 7.0-18.0 [facility] Comment on above: Performed By: #### B MP #### [facility] [address] [address] [address] Soo Donnelly Urea nitrogen/Creatinine [Mass ratio] 13.8 mg/mg Normal [facility] Comment on above: Performed By: #### B #### [facility] [address] [address] [address] Soo Donnelly XR KUB 1 VIEWon [...] LUZ ELENA SAUCEDA Date: 2022-09-18 12:[address] [facility] MAMM SCREEN 3D DEAN CADon 09-12-2022 MG MAMM SCREEN 3D DEAN CAD Patient: HORACIO KEATING Exam Date: 09/12/2022 : 1975 Gender:F Ordering : DR AURA MURILLO . Admission #: [id number] Family : Order #: [id number] CLICK HERE TO VIEW EXAM RADIOLOGY REPORT [...] ovarian cancer at age 77. LOCATION: [facility] BREAST COMPOSITION: Scattered areas fibroglandular density. FINDINGS: [...] Sheehan MD on 09/13/2022 at 07:46 Normal [facility] INSULINon 07-20-2022 Insulin 25.5 uIU/mL Critically high 2.6-24.9 [facility] Comment on above: Performed By: #### U LG, CRP #### [facility] [address] [place] [address] Dr. Soo Donnelly T4 LABCORPon 07-20-2022 T4 [Mass/Vol] 7.4 ug/dL Normal 4.5-12.0 [facility] Comment on above: Performed By: #### A NAD #### [facility] [address] [place] [address] Dr. Soo Donnelly CBC W MANUAL DIFFon 07-19-20 22 ATYPICAL LYMPH # Normal [facility] Comment on above: Performed By: #### B UN, CREA #### [facility] [address] [place] [address] Dr. Soo Donnelly ATYPICAL LYMPH % Normal [facility] Comment on above: Performed By: #### B UN, CREA #### [facility] [address] [place] [address] Dr. Soo Donnelly BAND # Normal 0.0-0.3 [facility] Comment on above: Performed By: #### B UN, CREA #### [facility] [address] [place] [address] Dr. Soo Donnelly BAND % Normal 0-5 [facility] Comment on above: Performed By: #### B UN, CREA #### [facility] [address] [place] [address] Dr. Soo Donnelly BASOM # 0.00 103/ul Normal 0.00-0.10 [facility] Comment on above: Performed By: #### B UN, CREA #### [facility] [address] [place] [address] Dr. Soo Donnelly BASOM % 0.0 % Critically low 0.2-2.0 [facility] Comment on above: Performed By: #### B UN, CREA #### [facility] [address] [place] [address] Dr. Soo Donnelly BLAST # Normal [facility] Comment on above: Performed By: #### B UN, CREA #### [facility] [address] [place] [address] Dr. Soo Donnelly BLAST % Normal [facility] Comment on above: Performed By: #### B UN, CREA #### [facility] [address] [place] [address] Dr. Soo Donnelly CORRECTED WBC Normal 4.0-11.0 [facility] Comment on above: Performed By: #### B UN, CREA #### [facility] [address] [place] [address] Dr. Soo Donnelly EOS # 0.31 103/ul Normal 0.00-0.70 [facility] Comment on above: Performed By: #### B UN, CREA #### [facility] [address] [place] [address] Dr. Soo Donnelly EOS% 2.0 % Normal 0.9-7.0 [facility] Comment on above: Performed By: #### B UN, CREA #### [facility] [address] [place] [address] Dr. Soo Donnelly HCT 41.6 % Normal 36.0-48.0 [facility] Comment on above: Performed By: #### B UN, CREA #### [facility] [address] [place] [address] Dr. Soo Donnelly HGB 13.8 g/dl Normal 12.0-16.0 [facility] Comment on above: Performed By: #### B UN, CREA #### [facility] [address] [place] [address] Dr. Soo Donnelly LYMPHM # 5.27 103/ul Critically high 1.20-3.80 [facility] Comment on above: Performed By: #### B UN, CREA #### [facility] [address] [place] [address] Dr. Soo Donnelly LYMPHM% 34.0 % Normal 20.5-60.0 [facility] Comment on above: Performed By: #### B UN, CREA #### [facility] [address] [place] [address] Dr. Soo Donnelly MCH 31.5 pg Normal 26.7-34.0 [facility] Comment on above: Performed By: #### B UN, CREA #### [facility] [address] [place] [address] Dr. Soo Donnelly MCHC 33.2 g/dl Normal 29.9-35.2 [facility] Comment on above: Performed By: #### B UN, CREA #### [facility] [address] [place] [address] Dr. Soo Donnelly MCV 95.0 fL Normal 81.0-99.0 [facility] Comment on above: Performed By: #### B UN, CREA #### [facility] [address] [place] [address] Dr. Soo Donnelly METAMYELOCYTE # Normal [facility] Comment on above: Performed By: #### B UN, CREA #### [facility] [address] [place] [address] Dr. Soo Donnelly METAMYELOCYTE % Normal [facility] Comment on above: Performed By: #### B UN, CREA #### [facility] [address] [place] [address] Dr. Soo Donnelly MONOM# 0.93 103/ul Critically high 0.30-0.80 [facility] Comment on above: Performed By: #### B UN, CREA #### [facility] [address] [place] [address] Dr. Soo Donnelly MONOM% 6.0 % Normal 1.7-12.0 [facility] Comment on above: Performed By: #### B UN, CREA #### [facility] [address] [place] [address] Dr. Soo Donnelly MPV 10.1 fL Normal 9.5-13.5 [facility] Comment on above: Performed By: #### B UN, CREA #### [facility] [address] [place] [address] Dr. Soo Donnelly MYELOCYTE # Normal [facility] Comment on above: Performed By: #### B UN, CREA #### [facility] [address] [place] [address] Dr. Soo Donnelly MYELOCYTE % Normal [facility] Comment on above: Performed By: #### B UN, CREA #### [facility] [address] [place] [address] Dr. Soo Donnelly NRBC Normal [facility] Comment on above: Performed By: #### B UN, CREA #### [facility] [address] [place] [address] Dr. Soo Donnelly PLT 260 103/ul Normal 150-450 [facility] Comment on above: Performed By: #### B UN, CREA #### [facility] [address] [place] [address] Dr. Soo Donnelly RBC 4.38 106/ul Normal 4.20-5.40 [facility] Comment on above: Performed By: #### B UN, CREA #### [facility] [address] [place] [address] Dr. Soo Donnelly RDW 12.5 % Normal 11.0-15.0 [facility] Comment on above: Performed By: #### B UN, CREA #### [facility] [address] [place] [address] Dr. Soo Donnelly SEG # 8.99 103/ul Critically high 1.40-6.50 [facility] Comment on above: Performed By: #### B UN, CREA #### [facility] [address] [place] [address] Dr. Soo Donnelly SEG % 58.0 % Normal 43.0-75.0 [facility] Comment on above: Performed By: #### B UN, CREA #### [facility] [address] [place] [address] Dr. Soo Donnelly WBC 15.5 103/ul Critically high 4.0-11.0 [facility] Comment on above: Performed By: #### B UN, CREA #### [facility] [address] [place] [address] Dr. Soo Donnelly FREE T3on 07-19-2022 FREE T3 2.62 pg/mlL Normal 2.18-3.98 [facility] Comment on above: Performed By: #### U LG, CRP #### [facility] [address] [address] [address] Soo Donnelly GLYCOHEMOGLOBIN A1Con 2021 ADA RECOMMENDATION SEE BELOW Normal [facility] Comment on above: Result Comment: ADA RECOMMENDED LIMIT 4.0 - 6.0 ADA THERAPEUTIC TARGET < 7.0 ACTION SUGGESTED > 7.0 Performed By: #### U LG, CRP #### [facility] [address] [address] [address] Soo Donnelly Glucose [Mass/Vol] 137 mg/dL Normal [facility] Comment on above: Performed By: #### U LG, CRP #### [facility] [address] [address] [address] Soo Donnelly HbA1c (Bld) [Mass fraction] 6.4 % Critically high 4.5-6.2 [facility] Comment on above: Performed By: #### U LG, CRP #### [facility] [address] [address] [address] Soo Donnelly LIPID PROFILEon 07-19-2022 CHOL-HDL RATIO NORM SEE BELOW Normal [facility] Comment on above: Result Comment: 3.3 - 4.4 LOW RISK 4.4 - 7.1 AVERAGE RISK 7.1 - 11.0 MODERATE RISK >11.0 HIGH RISK Performed By: #### U LG, CRP #### [facility] [address] [address] [address] Soo Donnelly Cholesterol [Mass/Vol] 226 mg/dL Critically high <=200 [facility] Comment on above: Performed By: #### U LG, CRP #### [facility] [address] [address] [address] Soo Donnelly Cholesterol in HDL [Mass/Vol] 33 mg/dL Critically low 40-60 [facility] Comment on above: Performed By: #### U LG, CRP #### [facility] [address] [address] [address] Soo Donnelly Cholesterol in LDL [Mass/Vol] 135.2 mg/dL Normal [facility] Comment on above: Performed By: #### U LG, CRP #### [facility] [address] [address] [address] Soo Donnelly Cholesterol.total/Mirta sterol in HDL [Mass ratio] 6.8 {ratio} Normal [facility] Comment on above: Performed By: #### U LG, CRP #### [facility] [address] [address] [address] Soo Donnelly HDL NORMAL > or = 60 mg/dl - LO W CARDIOVASCULAR RISK <40 mg/dl - HIGH CARDIOVASCULAR RISK Normal [facility] Comment on above: Performed By: #### U LG, CRP #### [facility] [address] [address] [address] Soo Donnelly LDL CALC NORMAL SEE BELOW Normal [facility] Comment on above: Result Comment: <100 mg/dl OPTIMAL 100 - 129 mg/dl NEAR OR ABOVE OPTIMAL 130 - 159 mg/dl BORDERLINE HIGH 160 - 189 mg/dl HIGH >190 mg/dl VERY HIGH Performed By: #### U LG, CRP #### [facility] [address] [address] [address] Soo Donnelly Triglyceride [Mass/Vol] 289 mg/dL Critically high <=150 [facility] Comment on above: Performed By: #### U LG, CRP #### [facility] [address] [address] [address] Soo Donnelly VLDL CALC 57.8 mg/dL Normal [facility] Comment on above: Performed By: #### U LG, CRP #### [facility] [address] [address] [address] Soo Donnelly PROF 14(COMP METB)on 022 Albumin [Mass/Vol] 3.2 g/dL Critically low 3.4-5.0 [facility] Comment on above: Performed By: #### U LG, CRP #### [facility] [address] [address] [address] Soo Donnelly Albumin/Globulin [Mass ratio] 1.1 {ratio} Normal [facility] Comment on above: Performed By: #### U LG, CRP #### [facility] [address] [address] [address] Soo Donnelly ALP [Catalytic activity/Vol] 41 U/L Critically low 46-116 [facility] Comment on above: Performed By: #### U LG, CRP #### [facility] [address] [address] [address] Soo Donnelly ALT [Catalytic activity/Vol] 46 U/L Normal 14-59 [facility] Comment on above: Performed By: #### U LG, CRP #### [facility] [address] [address] [address] Soo Donnelly Anion gap [Moles/Vol] 9.3 mmol/L Normal [facility] Comment on above: Performed By: #### U LG, CRP #### [facility] [address] [address] [address] Soo Donnelly AST [Catalytic activity/Vol] 18 U/L Normal 15-37 [facility] Comment on above: Performed By: #### U LG, CRP #### [facility] [address] [address] [address] Soo Donnelly Bilirubin [Mass/Vol] 0.7 mg/dL Normal 0.2-1.0 [facility] Comment on above: Performed By: #### U LG, CRP #### [facility] [address] [address] [address] Soo Donnelly Calcium [Mass/Vol] 8.1 mg/dL Critically low 8.5-10.1 [facility] Comment on above: Performed By: #### U LG, CRP #### [facility] [address] [address] [address] Soo Donnelly Chloride [Moles/Vol] 101 mmol/L Normal 98-107 [facility] Comment on above: Performed By: #### U LG, CRP #### [facility] [address] [address] [address] Soo Donnelly CO2 [Moles/Vol] 31.1 mmol/L Normal 21.0-32.0 [facility] Comment on above: Performed By: #### U LG, CRP #### [facility] [address] [address] [address] Soo Donnelly Creatinine [Mass/Vol] 0.77 mg/dL Normal 0.55-1.02 [facility] Comment on above: Performed By: #### U LG, CRP #### [facility] [address] [address] [address] Soo Donnelly EGFR-AF GHANAIAN >60 Normal >=60 [facility] Comment on above: Performed By: #### U LG, CRP #### [facility] [address] [address] [address] Soo Donnelly EGFR-NON AF GHANAIAN >60 Normal >=60 [facility] Comment on above: Performed By: #### U LG, CRP #### [facility] [address] [address] [address] Soo Donnelly Globulin (S) [Mass/Vol] 3.0 g/dL Normal [facility] Comment on above: Performed By: #### U LG, CRP #### [facility] [address] [address] [address] Soo Donnelly Glucose [Mass/Vol] 104 mg/dL Normal 74-106 [facility] Comment on above: Performed By: #### U LG, CRP #### [facility] [address] [address] [address] Soo Donnelly Potassium [Moles/Vol] 3.4 mmol/L Critically low 3.5-5.1 [facility] Comment on above: Performed By: #### U LG, CRP #### [facility] [address] [address] [address] Soo Donnelly Protein [Mass/Vol] 6.2 g/dL Critically low 6.4-8.2 [facility] Comment on above: Performed By: #### U LG, CRP #### [facility] [address] [address] [address] Soo Donnelly Sodium [Moles/Vol] 138 mmol/L Normal 136-145 [facility] Comment on above: Performed By: #### U LG, CRP #### [facility] [address] [place] [address] Dr. Soo Donnelly Urea nitrogen [Mass/Vol] 16.0 mg/dL Normal 7.0-18.0 [facility] Comment on above: Performed By: #### U LG, CRP #### [facility] [address] [place] [address] Dr. Soo Donnelly Urea nitrogen/Creatinine [Mass ratio] 20.8 mg/mg Normal [facility] Comment on above: Performed By: #### U LG, CRP #### [facility] [address] [place] [address] Dr. Soo Donnelyl TSHon 07-19-2022 TSH 3.262 uIU/mL Normal 0.358-3.740 [facility] Comment on above: Performed By: #### U LG, CRP #### [facility] [address] [place] [address] Dr. Soo Donnelly CBC AUTO DIFFon 05-18-2022 BASO # 0.0 103/ul Normal 0.0-0.1 [facility] Comment on above: Performed By: #### U LG, CRP #### [facility] [address] [place] [address] Dr. Soo Donnelly Basophils/100 WBC (Bld) 0.2 % Normal 0.2-2.0 [facility] Comment on above: Performed By: #### U LG, CRP #### [facility] [address] [place] [address] Dr. Soo Donnelly EO # 0.0 103/ul Normal 0.0-0.7 [facility] Comment on above: Performed By: #### U LG, CRP #### [facility] [address] [place] [address] Dr. Soo Donnelly Eosinophils/100 WBC (Bld) 0.2 % Critically low 0.9-7.0 [facility] Comment on above: Performed By: #### U LG, CRP #### [facility] [address] [place] [address] Dr. Soo Donnelly Erythrocyte distribution width (RBC) [Ratio] 12.8 % Normal 11.0-15.0 [facility] Comment on above: Performed By: #### U LG, CRP #### [facility] [address] [place] [address] Dr. Soo Donnelly Hematocrit (Bld) [Volume fraction] 35.7 % Critically low 36.0-48.0 [facility] Comment on above: Performed By: #### U LG, CRP #### [facility] [address] [place] [address] Dr. Soo Donnelly Hemoglobin (Bld) [Mass/Vol] 11.5 g/dL Critically low 12.0-16.0 [facility] Comment on above: Performed By: #### U LG, CRP #### [facility] [address] [place] [address] Dr. Soo Donnelly IG # 0.07 10e3/ul Critically high 0.00-0.03 [facility] Comment on above: Performed By: #### U LG, CRP #### [facility] [address] [place] [address] Dr. Soo Donnelly IG % 0.5 % Normal 0.0-0.5 [facility] Comment on above: Performed By: #### U LG, CRP #### [facility] [address] [place] [address] Dr. Soo Donnelly LYMPH # 4.1 103/ul Critically high 1.2-3.8 [facility] Comment on above: Performed By: #### U LG, CRP #### [facility] [address] [place] [address] Dr. Soo Donnelly Lymphocytes/100 WBC (Bld) 28.3 % Normal 20.5-60.0 [facility] Comment on above: Performed By: #### U LG, CRP #### [facility] [address] [place] [address] Dr. Soo Donnelly MANUAL DIFF REQ NO Normal [facility] Comment on above: Performed By: #### U LG, CRP #### [facility] [address] [place] [address] Dr. Soo Donnelly MCH (RBC) [Entitic mass] 31.7 pg Normal 26.7-34.0 [facility] Comment on above: Performed By: #### U LG, CRP #### [facility] [address] [place] [address] Dr. Soo Donnelly MCHC (RBC) [Mass/Vol] 32.2 g/dL Normal 29.9-35.2 [facility] Comment on above: Performed By: #### U LG, CRP #### [facility] [address] [place] [address] Dr. Soo Donnelly MCV (RBC) [Entitic vol] 98.3 fL Normal 81.0-99.0 [facility] Comment on above: Performed By: #### U LG, CRP #### [facility] [address] [place] [address] Dr. Soo Donnelly MONO # 0.8 103/ul Normal 0.3-0.8 [facility] Comment on above: Performed By: #### U LG, CRP #### [facility] [address] [place] [address] Dr. oSo Donnelly Monocytes/100 WBC (Bld) 5.6 % Normal 1.7-12.0 [facility] Comment on above: Performed By: #### U LG, CRP #### [facility] [address] [place] [address] Dr. Soo Donnelly NEUT # 9.4 103/ul Critically high 1.4-6.5 [facility] Comment on above: Performed By: #### U LG, CRP #### [facility] [address] [place] [address] Dr. Soo Donnelly Neutrophils/100 WBC (Bld) 65.2 % Normal 43.0-75.0 [facility] Comment on above: Performed By: #### U LG, CRP #### [facility] [address] [place] [address] Dr. Soo Donnelly Platelet mean volume (Bld) [Entitic vol] 10.8 fL Normal 9.5-13.5 [facility] Comment on above: Performed By: #### U LG, CRP #### [facility] [address] [address] [address] Soo Donnelly PLT 191 103/ul Normal 150-450 [facility] Comment on above: Performed By: #### U LG, CRP #### [facility] [address] [address] [address] Soo Donnelly RBC 3.63 106/ul Critically low 4.20-5.40 [facility] Comment on above: Performed By: #### U LG, CRP #### [facility] [address] [address] [address] Soo Donnelly WBC 14.4 103/ul Critically high 4.0-11.0 [facility] Comment on above: Performed By: #### U LG, CRP #### [facility] [address] [place] [address] Dr. Soo Donnelly BUNon 05-17-2022 Urea nitrogen [Mass/Vol] 8.0 mg/dL Normal 7.0-18.0 [facility] Comment on above: Performed By: #### B UN, CREA #### [facility] [address] [place] [address] Dr. Soo Donnelly CBC AUTO DIFFon 05-17-2022 BASO # 0.0 103/ul Normal 0.0-0.1 [facility] Comment on above: Performed By: #### U LG, CRP #### [facility] [address] [address] [address] Soo Donnelly Basophils/100 WBC (Bld) 0.1 % Critically low 0.2-2.0 [facility] Comment on above: Performed By: #### U LG, CRP #### [facility] [address] [address] [address] Soo Donnelly EO # 0.0 103/ul Normal 0.0-0.7 [facility] Comment on above: Performed By: #### U LG, CRP #### [facility] [address] [place] [address] Dr. Soo Donnelly Eosinophils/100 WBC (Bld) 0.0 % Critically low 0.9-7.0 [facility] Comment on above: Performed By: #### U LG, CRP #### [facility] [address] [address] [address] Soo Donnelly Erythrocyte distribution width (RBC) [Ratio] 12.5 % Normal 11.0-15.0 [facility] Comment on above: Performed By: #### U LG, CRP #### [facility] [address] [address] [address] Soo Donnelly Hematocrit (Bld) [Volume fraction] 38.5 % Normal 36.0-48.0 [facility] Comment on above: Performed By: #### U LG, CRP #### [facility] [address] [address] [address] Soo Donnelly Hemoglobin (Bld) [Mass/Vol] 13.0 g/dL Normal 12.0-16.0 [facility] Comment on above: Performed By: #### U LG, CRP #### [facility] [address] [place] [address] Dr. Soo Donnelly IG # 0.16 10e3/ul Critically high 0.00-0.03 [facility] Comment on above: Performed By: #### U LG, CRP #### [facility] [address] [place] [address] Dr. Soo Donnelly IG % 0.7 % Critically high 0.0-0.5 [facility] Comment on above: Performed By: #### U LG, CRP #### [facility] [address] [address] [address] Soo Donnelly LYMPH # 3.0 103/ul Normal 1.2-3.8 [facility] Comment on above: Performed By: #### U LG, CRP #### [facility] [address] [address] [address] Soo Donnelly Lymphocytes/100 WBC (Bld) 12.2 % Critically low 20.5-60.0 [facility] Comment on above: Performed By: #### U LG, CRP #### [facility] [address] [place] [address] Dr. Soo Donnelly MANUAL DIFF REQ NO Normal [facility] Comment on above: Performed By: #### U LG, CRP #### [facility] [address] [address] [address] Soo Donnelly MCH (RBC) [Entitic mass] 32.4 pg Normal 26.7-34.0 [facility] Comment on above: Performed By: #### U LG, CRP #### [facility] [address] [place] [address] Dr. Soo Donnelly MCHC (RBC) [Mass/Vol] 33.8 g/dL Normal 29.9-35.2 [facility] Comment on above: Performed By: #### U LG, CRP #### [facility] [address] [place] [address] Dr. Soo Donnelly MCV (RBC) [Entitic vol] 96.0 fL Normal 81.0-99.0 [facility] Comment on above: Performed By: #### U LG, CRP #### [facility] [address] [place] [address] Dr. Soo Donnelly MONO # 1.3 103/ul Critically high 0.3-0.8 [facility] Comment on above: Performed By: #### U LG, CRP #### [facility] [address] [place] [address] Dr. Soo Donnelly Monocytes/100 WBC (Bld) 5.4 % Normal 1.7-12.0 [facility] Comment on above: Performed By: #### U LG, CRP #### [facility] [address] [place] [address] Dr. Soo Donnelly NEUT # 19.8 103/ul Critically high 1.4-6.5 [facility] Comment on above: Performed By: #### U LG, CRP #### [facility] [address] [place] [address] Dr. Soo Donnelly Neutrophils/100 WBC (Bld) 81.6 % Critically high 43.0-75.0 [facility] Comment on above: Performed By: #### U LG, CRP #### [facility] [address] [place] [address] Dr. Soo Donnelly Platelet mean volume (Bld) [Entitic vol] 10.5 fL Normal 9.5-13.5 [facility] Comment on above: Performed By: #### U LG, CRP #### [facility] [address] [address] [address] Soo Donnelly PLT 253 103/ul Normal 150-450 [facility] Comment on above: Performed By: #### U LG, CRP #### [facility] [address] [address] [address] Soo Donnelly RBC 4.01 106/ul Critically low 4.20-5.40 [facility] Comment on above: Performed By: #### U LG, CRP #### [facility] [address] [address] [address] Soo Donnelly WBC 24.3 103/ul Critically high 4.0-11.0 The [facility] Comment on above: Performed By: #### U LG, CRP #### [facility] [address] [address] [address] Soo Donnelly BASO # 0.0 103/ul Normal 0.0-0.1 [facility] Comment on above: Performed By: #### U LG, CRP #### [facility] [address] [address] [address] Soo Donnelly Basophils/100 WBC (Bld) 0.1 % Critically low 0.2-2.0 [facility] Comment on above: Performed By: #### U LG, CRP #### [facility] [address] [address] [address] Soo Donnelly EO # 0.0 103/ul Normal 0.0-0.7 [facility] Comment on above: Performed By: #### U LG, CRP #### [facility] [address] [address] [address] Soo Donnelly Eosinophils/100 WBC (Bld) 0.0 % Critically low 0.9-7.0 [facility] Comment on above: Performed By: #### U LG, CRP #### [facility] [address] [place] [address] Dr. Soo Donnelly Erythrocyte distribution width (RBC) [Ratio] 12.3 % Normal 11.0-15.0 [facility] Comment on above: Performed By: #### U LG, CRP #### [facility] [address] [place] [address] Dr. Soo Donnelly Hematocrit (Bld) [Volume fraction] 41.2 % Normal 36.0-48.0 [facility] Comment on above: Performed By: #### U LG, CRP #### [facility] [address] [place] [address] Dr. Soo Donnelly Hemoglobin (Bld) [Mass/Vol] 13.5 g/dL Normal 12.0-16.0 [facility] Comment on above: Performed By: #### U LG, CRP #### [facility] [address] [place] [address] Dr. Soo Donnelly IG # 0.11 10e3/ul Critically high 0.00-0.03 [facility] Comment on above: Performed By: #### U LG, CRP #### [facility] [address] [place] [address] Dr. Soo Donnelly IG % 0.5 % Normal 0.0-0.5 [facility] Comment on above: Performed By: #### U LG, CRP #### [facility] [address] [place] [address] Dr. Soo Donnelly LYMPH # 1.6 103/ul Normal 1.2-3.8 [facility] Comment on above: Performed By: #### U LG, CRP #### [facility] [address] [place] [address] Dr. Soo Donnelly Lymphocytes/100 WBC (Bld) 7.8 % Critically low 20.5-60.0 [facility] Comment on above: Performed By: #### U LG, CRP #### [facility] [address] [place] [address] Dr. Soo Donnelly MANUAL DIFF REQ NO Normal [facility] Comment on above: Performed By: #### U LG, CRP #### [facility] [address] [place] [address] Dr. Soo Donnelly MCH (RBC) [Entitic mass] 31.8 pg Normal 26.7-34.0 [facility] Comment on above: Performed By: #### U LG, CRP #### [facility] [address] [place] [address] Dr. Soo Donnelly MCHC (RBC) [Mass/Vol] 32.8 g/dL Normal 29.9-35.2 [facility] Comment on above: Performed By: #### U LG, CRP #### [facility] [address] [place] [address] Dr. Soo Donnelly MCV (RBC) [Entitic vol] 96.9 fL Normal 81.0-99.0 [facility] Comment on above: Performed By: #### U LG, CRP #### [facility] [address] [place] [address] Dr. Soo Donnelly MONO # 0.4 103/ul Normal 0.3-0.8 [facility] Comment on above: Performed By: #### U LG, CRP #### [facility] [address] [place] [address] Dr. Soo Donnelly Monocytes/100 WBC (Bld) 2.0 % Normal 1.7-12.0 [facility] Comment on above: Performed By: #### U LG, CRP #### [facility] [address] [place] [address] Dr. Soo Donnelly NEUT # 18.1 103/ul Critically high 1.4-6.5 [facility] Comment on above: Performed By: #### U LG, CRP #### [facility] [address] [place] [address] Dr. Soo Donnelly Neutrophils/100 WBC (Bld) 89.6 % Critically high 43.0-75.0 [facility] Comment on above: Performed By: #### U LG, CRP #### [facility] [address] [place] [address] Dr. Soo Donnelly Platelet mean volume (Bld) [Entitic vol] 11.0 fL Normal 9.5-13.5 [facility] Comment on above: Performed By: #### U LG, CRP #### [facility] [address] [address] [address] Soo Donnelly PLT 223 103/ul Normal 150-450 [facility] Comment on above: Performed By: #### U LG, CRP #### [facility] [address] [address] [address] Soo Donnelly RBC 4.25 106/ul Normal 4.20-5.40 [facility] Comment on above: Performed By: #### U LG, CRP #### [facility] [address] [address] [address] Soo Donnelly WBC 20.2 103/ul Critically high 4.0-11.0 The [facility] Comment on above: Performed By: #### U LG, CRP #### [facility] [address] [place] [address] Dr. Soo Donnelly CREATININEon 05-17-2022 Creatinine [Mass/Vol] 0.97 mg/dL Normal 0.55-1.02 [facility] Comment on above: Performed By: #### B UN, CREA #### [facility] [address] [place] [address] Dr. Soo Donnelly EGFR-AF GHANAIAN >60 Normal >=60 [facility] Comment on above: Performed By: #### B UN, CREA #### [facility] [address] [place] [address] Dr. Soo Donnelly EGFR-NON AF GHANAIAN >60 Normal >=60 [facility] Comment on above: Performed By: #### B UN, CREA #### [facility] [address] [place] [address] Dr. Soo Donnelly CTA CHEST WO W [...] LUZ ELENA SAUCEDA Date: 2022-05-17 16:40 Normal [facility] XR CHEST 2 Von 05-17-2022 XR CHEST [...] disease is seen. Electronically authenticated by: SAMI JONES Date: 2022-05-17 16:10 Normal [facility] CBC AUTO DIFFon 05-16-2022 BASO # 0.1 103/ul Normal 0.0-0.1 [facility] Comment on above: Performed By: #### B JOANNA, CREA #### [facility] [address] [address] [address] Soo Donnelly Basophils/100 WBC (Bld) 0.5 % Normal 0.2-2.0 [facility] Comment on above: Performed By: #### B JOANNA, CREA #### [facility] [address] [address] [address] Soo Donnelly EO # 0.1 103/ul Normal 0.0-0.7 [facility] Comment on above: Performed By: #### B JOANNA, CREA #### [facility] [address] [place] [address] Dr. Soo Donnelly Eosinophils/100 WBC (Bld) 1.0 % Normal 0.9-7.0 [facility] Comment on above: Performed By: #### B UN, CREA #### [facility] [address] [place] [address] Dr. Soo Donnelly Erythrocyte distribution width (RBC) [Ratio] 12.2 % Normal 11.0-15.0 [facility] Comment on above: Performed By: #### B UN, CREA #### [facility] [address] [place] [address] Dr. Soo Donnelly Hematocrit (Bld) [Volume fraction] 41.2 % Normal 36.0-48.0 [facility] Comment on above: Performed By: #### B UN, CREA #### [facility] [address] [place] [address] Dr. Soo Donnelly Hemoglobin (Bld) [Mass/Vol] 13.9 g/dL Normal 12.0-16.0 [facility] Comment on above: Performed By: #### B UN, CREA #### [facility] [address] [place] [address] Dr. Soo Donnelly IG # 0.04 10e3/ul Critically high 0.00-0.03 [facility] Comment on above: Performed By: #### B UN, CREA #### [facility] [address] [place] [address] Dr. Soo Donnelly IG % 0.4 % Normal 0.0-0.5 [facility] Comment on above: Performed By: #### B UN, CREA #### [facility] [address] [place] [address] Dr. Soo Donnelly LYMPH # 3.5 103/ul Normal 1.2-3.8 [facility] Comment on above: Performed By: #### B UN, CREA #### [facility] [address] [place] [address] Dr. Soo Donnelly Lymphocytes/100 WBC (Bld) 35.3 % Normal 20.5-60.0 [facility] Comment on above: Performed By: #### B UN, CREA #### [facility] [address] [place] [address] Dr. Soo Donnelly MANUAL DIFF REQ NO Normal [facility] Comment on above: Performed By: #### B UN, CREA #### [facility] [address] [place] [address] Dr. Soo Donnelly MCH (RBC) [Entitic mass] 31.7 pg Normal 26.7-34.0 [facility] Comment on above: Performed By: #### B UN, CREA #### [facility] [address] [place] [address] Dr. Soo Donnelly MCHC (RBC) [Mass/Vol] 33.7 g/dL Normal 29.9-35.2 [facility] Comment on above: Performed By: #### B UN, CREA #### [facility] [address] [place] [address] Dr. Soo Donnelly MCV (RBC) [Entitic vol] 94.1 fL Normal 81.0-99.0 [facility] Comment on above: Performed By: #### B UN, CREA #### [facility] [address] [place] [address] Dr. Soo Donnelly MONO # 0.5 103/ul Normal 0.3-0.8 [facility] Comment on above: Performed By: #### B UN, CREA #### [facility] [address] [place] [address] Dr. Soo Donnelly Monocytes/100 WBC (Bld) 5.4 % Normal 1.7-12.0 [facility] Comment on above: Performed By: #### B UN, CREA #### [facility] [address] [place] [address] Dr. Soo Donnelly NEUT # 5.6 103/ul Normal 1.4-6.5 [facility] Comment on above: Performed By: #### B UN, CREA #### [facility] [address] [place] [address] Dr. Soo Donnelly Neutrophils/100 WBC (Bld) 57.4 % Normal 43.0-75.0 [facility] Comment on above: Performed By: #### B UN, CREA #### [facility] [address] [place] [address] Dr. oSo Donnelly Platelet mean volume (Bld) [Entitic vol] 10.3 fL Normal 9.5-13.5 [facility] Comment on above: Performed By: #### B UN, CREA #### [facility] [address] [place] [address] Dr. Soo Donnelly PLT 235 103/ul Normal 150-450 [facility] Comment on above: Performed By: #### B JOANNA, CREA #### [facility] [address] [place] [address] Dr. Soo Donnelly RBC 4.38 106/ul Normal 4.20-5.40 [facility] Comment on above: Performed By: #### B JOANNA, CREA #### [facility] [address] [place] [address] Dr. Soo Donnelly WBC 9.8 103/ul Normal 4.0-11.0 [facility] Comment on above: Performed By: #### B UN, CREA #### [facility] [address] [place] [address] Dr. Soo Donnelly PREG QUANT HCGon 05-16-2022 HCG QUANT <1 Normal [facility] Comment on above: Performed By: #### U LG, CRP #### [facility] [address] [place] [address] Dr. Soo Donnelly HCG RANGE SEE BELOW Normal [facility] Comment on above: Result Comment: 5-50 0-1 WEEK 40-300 1-2 WEEKS 100-1,000 2-3 WEEKS 500-6,000 3-4 WEEKS 5,000-200,000 1-2 MONTHS 10,000-100,000 2-3 MONTHS 3,000-50,000 2ND TRIMESTER 1,000-50,000 3RD TRIMESTER Performed By: #### U LG, CRP #### [facility] [address] [place] [address] Dr. Soo Donnelly Covid-19 PCR (CVDTB)on 05-01 SARS-CoV-2 (COVID-19) RNA NOLA+probe Ql (Unsp spec) Not detected Normal NOT DETECTED [facility] Comment on above: Result Comment: This test is not yet approved or cleared by the [place] FDA. When there are no FDA-approved or cleared tests available, and other criteria are met, FDA can make tests available under an emergency access mechanism called an Emergency Use Authorization (EUA). The EUA for this test is supported by the Monkey Trainer of Health and Human Service's (HHS's) declaration [...] SARS-CoV-2. Performed By: #### C VDTBH #### [facility] [address] [address] [address] Soo Donnelly TYPE AND SCREENon 05-13-2022 TYPE AND SCREEN Negative Normal [facility] Comment on above: Performed By: #### B UN, CREA #### [facility] [address] [address] [address] Soo Donnelly PAP ACOG PANEL 2: 30 to 65on 05-07-2022 . . Normal [facility] Comment on above: Result Comment: Perf ormed at: WB Performed By: #### [id number] #### [facility] [address] [address] [address] Soo Donnelly Age Gdln ACOG Testing 30-65 [facility] Comment on above: Performed By: #### [id number] #### [facility] [address] [place] [address] Dr. Soo Donnelly DIAGNOSIS: Comment Normal [facility] Comment on above: Result Comment: NEGA TIVE FOR INTRAEPITHELIAL LESION OR MALIGNANCY. Performed at: WB Performed By: #### [id number] #### [facility] [address] [place] [address] Dr. Soo Donnelly HPV Aptima Negative Normal Negative [facility] Comment on above: Result Comment: This nucleic acid amplification test detects fourteen high-risk HPV types (16,18,31,33,35,39,45,51,52,56,58,59,66,68) without differentiation. Performed at: =G Performed By: #### [id number] #### [facility] [address] [place] [address] Dr. Soo Donnelly Methodology: Comment Normal [facility] Comment on above: Result Comment: This liquid based ThinPrep(R) pap test was screened with the use of an image guided system. Performed at: WB Performed By: #### [id number] #### [facility] [address] [place] [address] Dr. Soo Donnelly Note: Comment Normal [facility] Comment on above: Result Comment: The Pap smear is a screening test designed to aid in the detection of premalignant and malignant conditions of the uterine cervix. It is not a diagnostic procedure and should not be used as the sole means of detecting cervical cancer. Both false-positive and false-negative reports do occur. . Performed at: WB Performed By: #### [id number] #### [facility] [address] [place] [address] Dr. Soo Donnelly Performed by: Comment Normal [facility] Comment on above: Result Comment: Angel Rod, Jewel Bearing Driller (ASCP) Performed at: WB Performed By: #### [id number] #### [facility] [address] [place] [address] Dr. Soo Donnelly Specimen adequacy: Comment Normal [facility] Comment on above: Result Comment: Sati sfactory for evaluation. Endocervical and/or squamous metaplastic cells (endocervical component) are present. Performed at: WB Performed By: #### [id number] #### [facility] [address] [place] [address] Dr. Soo Donnelly ROSS by IFAon 02-21-2022 Antinuclear Antibodies, IFA Negative Normal [facility] Comment on above: Result Comment: Nega tive <1:80 Borderline 1:80 Positive >1:80 ICAP nomenclature: AC-0 For more information about Hep-2 cell patterns use ANApatterns.org, the official website for the International Consensus on Antinuclear Antibody (ROSS) Patterns (ICAP). Performed By: #### U LG, CRP #### [facility] [address] [place] [address] Dr. Soo Donnelly ROSS DIRECTon 02-20-2022 ROSS Direct Negative Normal Negative [facility] Comment on above: Performed By: #### A NAD #### [facility] [address] [place] [address] Dr. Soo Donnelly ANTISTREPTOLYSIN O AB (ASO)o n 02-20-2022 Antistreptolysin O Ab 115.3 IU/mL Normal 0.0-200.0 [facility] Comment on above: Performed By: #### B UN, CREA #### [facility] [address] [place] [address] Dr. Soo Donnelly C3 and C4 COMPLEMENTon 02-20 Complement C3, Serum 137 mg/dL Normal 82-167 [facility] Comment on above: Performed By: #### U LG, CRP #### [facility] [address] [place] [address] Dr. Soo Donnelly Complement C4, Serum 23 mg/dL Normal 12-38 [facility] Comment on above: Performed By: #### U LG, CRP #### [facility] [address] [place] [address] Dr. Soo Donnelly SLE PROFILE Aon 02-20-2022 Anti-DNA (DS) Ab Qn <1 Normal 0-9 [facility] Comment on above: Result Comment: Nega tive <5 Equivocal 5 - 9 Positive >9 Performed By: #### S YARI #### [facility] [address] [place] [address] Dr. Soo Donnelly Antichromatin Antibodies <0.2 Normal 0.0-0.9 [facility] Comment on above: Performed By: #### S YARI #### [facility] [address] [address] [address] Soo Donnelly RA Latex Turbid. <10.0 Normal <14.0 [facility] Comment on above: Performed By: #### S YARI #### [facility] [address] [address] [address] Soo Donnelly PRODUCT ENGINEERING MANAGER Antibodies <0.2 Normal 0.0-0.9 [facility] Comment on above: Performed By: #### S YARI #### [facility] [address] [address] [address] Soo Donnelly Sjogren's Anti-SS-A <0.2 Normal 0.0-0.9 [facility] Comment on above: Performed By: #### S YARI #### [facility] [address] [address] [address] Soo Donnelly Sjogren's Anti-SS-B <0.2 Normal 0.0-0.9 The [facility] Comment on above: Performed By: #### S YARI #### [facility] [address] [address] [address] Soo Donnelly Spann Antibodies <0.2 Normal 0.0-0.9 [facility] Comment on above: Performed By: #### S YARI #### [facility] [address] [address] [address] Soo Donnelly CRPon 02-19-2022 CRP [Mass/Vol] mg/L Normal <=1.0 The [facility] Comment on above: Performed By: #### U LG, CRP #### [facility] [address] [address] [address] Soo Donnelly URIC ACID SERUMon 02-19-2022 Urate [Mass/Vol] 4.7 mg/dL Normal 2.5-6.2 [facility] Comment on above: Performed By: #### U LG, CRP #### [facility] [address] [address] [address] Soo Donnelly XR CSPINE MIN 4 [...] ABIGAIL SHEEHAN Date: 2022-02-19 16:33 Normal The [facility] XR HAND DEAN MIN 3Von 022 XR [...] ABIGAIL SHEEHAN Date: 2022-02-19 16:28 Normal The [facility] ASYMPTOMATIC COVID-19 ANTIGE Non 12-04-2021 EUA Statement SEE BELOW Normal The [facility] Comment on above: Result Comment: This [...] sooner. Performed By: #### C VDAGA #### [facility] [address] [place] [address] Soo Donnelly SARS-CoV-2 (COVID-19) RNA NOLA+probe Ql (Unsp spec) Negative Normal NEGATIVE The [facility] Comment on above: Result Comment: Nega tive results are presumptive. They do not preclude infection and should not be used as the sole basis for treatment decisions. Additional confirmatory testing by a molecular method should be considered. Performed By: #### C VDAGA #### [facility] [address] [place] [id number] Soo Donnelly Covid-19 [facility]on SARS-CoV-2 (COVID-19) RNA NOLA+probe Ql (Unsp spec) Not detected Normal NOT DETECTED The [facility] Comment on above: Result Comment: This test is not yet approved or cleared by the [place] FDA. When there are no FDA-approved or cleared tests available, and other criteria are met, FDA can make tests available under an emergency access mechanism called an Emergency Use Authorization (EUA). The EUA for this test is supported by the [place] of Health and Human Service's (HHS's) declaration [...] Performed By: #### U LG, CRP #### [facility] [address] [place] [address] Soo Donnelly Vital Signs Date Time Vital Sign Value Performing Clinician Facility 11-01-2022 15:19-0500 Blood Pressure Location Nicola CANDELARIOHamida [facility] 11-01-2022 15:19-0500 Diastolic blood pressure 80 mm[Hg] Nicola NILL [facility] 11-01-2022 15:19-0500 Heart rate 72 /min Nicola NILL [facility] 11-01-2022 15:19-0500 Respiratory rate 16 /min Nicola NILL [facility] 11-01-2022 15:19-0500 Systolic blood pressure 118 mm[Hg] Nicola NILL [facility] 10-01-2022 16:30-0400 Body height 170.18 cm Clarice Scally Other [facility] Other 10-01-2022 16:30-0400 Body mass index (BMI) [Ratio] 32.84 kg/m2 Clarice Scally Other [facility] [employer] Other 10-01-2022 16:30-0400 Body weight 95.12 kg Clarice Scally Other [facility] [employer] Other 10-01-2022 16:30-0400 Diastolic blood pressure 82 mm[Hg] Clarice Scally Other [facility] Other 10-01-2022 16:30-0400 Respiratory rate 18 /min Clarice Scally Other [facility] [employer] Other 10-01-2022 16:30-0400 SaO2% (BldA) [Mass fraction] 97 % Clarice Scally Other [facility] [employer] Other 10-01-2022 16:30-0400 Systolic blood pressure 116 mm[Hg] Clarice Scally Other [facility] Other 08-28-2022 14:30-0400 Body height 170.18 cm Nahid Elisediff Other [facility] Other 08-28-2022 14:30-0400 Body mass index (BMI) [Ratio] 34.55 kg/m2 Nahid Elisediff Other [facility] Other 08-28-2022 14:30-0400 Body weight 100.06 kg Nahid Elisediff Other [facility] Other 08-28-2022 14:30-0400 Diastolic blood pressure 82 mm[Hg] Nahid Elisediff Other [facility] [employer] Other 08-28-2022 14:30-0400 Respiratory rate 18 /min Nahid Elisediff Other [facility] Other 08-28-2022 14:30-0400 SaO2% (BldA) [Mass fraction] 97 % Nahid Elisediff Other [facility] Other 08-28-2022 14:30-0400 Systolic blood pressure 121 mm[Hg] Nahid Mccoy Other [employer] Other Encounters Encounter Date Encounter Type Care Provider Facility Start: 04-05-2024 End: 04-05-2024 ambulatory AURA MURILLO Not Available Start: 03-15-2024 End: 03-15-2024 Emergency department patient visit Nicola Neff Facility:[facility] Start: 10-22-2023 End: 10-22-2023 ambulatory JESSICA SANCHEZ Not Available Start: 08-15-2023 End: 08-15-2023 ambulatory Dedrick Fuller Facility:[facility] Start: 08-15-2023 End: 08-15-2023 ambulatory NON STAFF [facility] Work Phone: Start: 08-15-2023 End: 08-15-2023 Departed Referred [facility] [address] Work Phone: Start: 12-05-[address] SAMI MARINELLI Facility :[facility] Start: 11-09-2022 End: 11-10-[address] DOCTOR STEIN Facility:[facility] Start: 11-01-2022 End: 11-02-2022 ambulatory Nicola R KODAKL Facility:[facility] Start: 11-01-2022 End: 11-01-2022 Patient encounter procedure Nicola R NILL [facility] Start: 10-29-2022 End: 10-29-2022 ambulatory Clarice Hull Other [employer] Other Start: 10-29-2022 Telephone encounter [facility]ice [facility] Start: 10-14-2022 End: 10-14-2022 ambulatory Clarice Hull Other [facility] Other Start: 10-14-2022 Telephone encounter Clarice [facility] Start: 10-04-2022 ambulatory Nicola BUCHANAN Facility:[facility] Start: 10-01-2022 (FCCCWMNF/U) Weight Management f/u Clarice Hull [facility] Start: 10-01-2022 End: 10-02-[address] LUZ ELENA SAUCEDA [facility] Other Start: 09-19-2022 End: 09-19-2022 ambulatory Nahid Mccoy Other [facility] Other Start: 09-19-2022 Telephone encounter Nahid h[facility] Start: 09-18-2022 End: 09-18-[address] LUZ ELENA SAUCEDA Facility:[facility] Start: 09-12-2022 End: 09-13-[address] ABIGAIL SHEEHAN Facility:[facility] Start: 08-28-2022 End: 08-28-2022 ambulatory Nahid Mccoy Other [facility] [employer] Other Start: 08-28-2022 Nutrition therapy Nahid Mccoy [facility] Start: 07-22-2022 Encounter for genera l adult medical examination without abnormal findings DR SAMI MARINELLI [facility] Start: 07-19-2022 End: 07-20-[address] SAMI AMRINELLI Facility:[facility] Start: 07-19-2022 End: 07-20-2022 Encounter for general adult medical examination without abnormal findings DR SAMI MARINELLI Facility:[facility] Start: 07-03-2022 End: 07-04-[address] SAMI MARINELLI Facility:[facility] Start: 06-10-2022 End: 06-11-[address] SAMI MARINELLI Facility:[facility] Start: 05-16-2022 End: 05-18-2022 Evaluation and management of inpatient DR AURA MURILLO Facility:[facility] Start: 05-16-2022 Encounter for preprocedural laboratory examination DR AURA MURILLO [facility] Start: 05-13-2022 End: 05-14-[address] AURA MURILLO Facility:[facility] Start: 05-13-2022 End: 05-14-2022 Encounter for preprocedural laboratory examination DR AURA MURILLO Facility:[facility] Start: 05-11-2022 Encounter for preprocedural cardiovascular examination DR AURA MURILLO [facility] Start: 05-08-2022 End: 05-09-[address] SAMI MARINELLI Facility:[facility] Start: 05-08-2022 End: 05-09-2022 Encounter for preprocedural cardiovascular examination DR SAMI MARINELLI Facility:[facility] Start: 05-02-2022 End: 05-02-[address] AURA MURILLO Facility:[facility] Start: 02-19-2022 End: 02-20-[address] SAMI MARINELLI Facility:[facility] Start: 12-04-2021 End: 12-04-[address] SAMI MARINELLI Facility:[facility] Procedures Date Procedure Procedure Detail Performing Clinician Start: 05-16-2022 Excision of Right Ov roge, Open Approach DR ABIGAIL SHEEHAN [...] ablation Nicola NILL Extraction of wisdom tooth M zion NILL Laparoscopic cholecystectomy Nicola NILL Laparoscopic excisio n of cyst of left ovary Nicola NILL Laparoscopic excisio n of cyst of right ovary Nicola NILL Ligation of fallopian tube M ichalbaro NILL Comment on above: DONE WITH C SECTION LIPOMA EXCISION 4 Nicola NI LL Comment on above: ABDOMEN X3 REPAIR FOR TMJ Nicola NILL Immunizations Immunization Date Immunization Notes Care Provider Fa cility NEGATED: Highlighted row has not occurred!11-01-2022 influenza virus vaccine, unspecified formulation Nicola NILL [facility] Payers Date Payer Category Payer Self-pay [id number] 1975 Unknown [id number] 2.16.8 [id number] 1975 Unknown [id number] 2.16.84 0.1.399140.3.579.2.593 1975 Unknown [id number] 2.16.84 0.1.157672.3.579.2.593 1975 Unknown [id number] 2.16.84 0.1.011322.3.579.2.593 1975 Unknown [id number] 2.16.84 0.1.240678.3.579.2.593 1975 Unknown [id number] 2.16.84 0.1.168423.3.579.2.593 1975 Unknown [id number] 2.16.84 0.1.445034.3.579.2.593 1975 Unknown [id number] 2.16.84 0.1.873519.3.579.2.593 1975 Unknown [id number] 2.16.84 0.1.682278.3.579.2.593 1975 Unknown [id number] 2.16.84 0.1.877826.3.579.2.593 1975 Unknown [id number] 2.16.84 0.1.125666.3.579.2.593 1975 Unknown [id number] 2.16.84 0.1.485078.3.579.2.593 1975 Unknown [id number] 2.16.84 0.1.233128.3.579.2.593 1975 Unknown [id number] 2.16.84 0.1.355557.3.579.2.593 1975 Unknown [id number] 2.16.84 0.1.088614.3.579.2.593 1975 Unknown [id number] 2.16.8 40.1.273467.3.579.2.718 1975 Unknown [id number] 2.16.84 0.1.055744.3.579.2.1259 1975 Unknown [id number] 2.16.840 .1.991980.3.579.2.1259 1958 Self-pay [id number] 1958 Unknown [id number] 2. 16.840.1.784189.19 Unknown [id number] 2.16.8 40.1.155950.3.579.2.531 Unknown [id number] 2.16.8 40.1.120452.3.579.2.531 Social History Date Type Detail Facility Unknown if ever smoked [facility] Other Sex Assigned At [facility] Start: 11-01-2022 Tobacco smoking status Ex-smoker (finding) [facility] Tobacco smoking status Former smokeless tobacco user, quit more than 30 days ago [facility] Start: 1975 Sex Assigned At Female F [facility] Functional Status Date Assessment Result Facility 11-01-2022 Functional Status N/A [facility] Clinical Notes 05-16-2022 to 03-15-2024 Note Date [...] Keep all follow-up visits. Medicines ? Take mles-xel-ggfjgfm and prescription medicines only as told by [...] work harder to (more content not included)... [facility] 11-25-2022 Note Chief Complaint consultation for umbilical [...] - Denies A (more content not included)... [facility] Comment on above: Result Comment: Elec tronically Signed By: CHANEL BURK, Nicola Montano\Date and [...] was counseling done by myself, Ann ANGLIN. [facility] Other 09-28-2022 Evaluation note* Encounter Date Diagnosis Assessment Notes Treatment Notes Treatment Clinical Notes Aug, Abnormal weight gain (ICD-10 - R63.5) Aug, Prediabetes (ICD-10 - R73.03) Aug, Mixed hyperlipidemia (ICD-10 - E78.2) Aug, Hypertension (ICD-10 - I10) Aug, Obstructive sleep apnea (ICD-10 - G47.33) Aug, GERD (gastroesophageal reflux disease) (ICD-10 - K21.9) Aug, Metabolic syndrome X (ICD-10 - E88.81) [facility] Other 06-16-2022 NoteDISCHARGE SUMMARY DISCHARGE DATE: 05/18/2022 [...] pain free and no longer on narcotics. [facility] Signed and Approved by: DR AURA MURILLO . 05/20/2022 07:51:00[id number] NoteThe [place], [place] NAME: HORACIO PUGH DATE OF : MEDICAL REC#: [id number] BIOSTATISTICS TEACHER: [address] [facility] ADMIT DATE: 05/16/2022 11:05:00 SILVER SERVICE WAITER DATE: 05/17/2022 21:20 DICTATING PHYSICIAN: AURA MURILLO DICTATION DATE: 05/16/2022 15:02 OP Note OPERATION DATE: 05/16/2022 PROCEDURE: Supracervical hysterectomy with left salpingo-oophorectomy with right salpingectomy and right ovarian cystotomy of approximately 3 cm cyst. SURGEON: Aura Murillo D.O. CLINICAL NURSING INTERN: SHUKRI Bailon URINE OUTPUT: Yellow and clear. [...] Approved by: DR AURA MURILLO . 05/23/2022 10:30:00[facility] No data available for this section [facility] Evaluation noteNo InformationNortRenovagen Other Evaluation noteNo assessment information available [facility] Work Phone: [employer] general Narrative - Reported* Type Description Date [...] History TMJ surgery Hospitalization History see above [facility] Other [employer] general Narrative - Reported* Type Description Date [...] Tummy Tuck 2009 Surgical History lipoma removed 2005 Surgical History TMJ surgery Hospitalization History see above Hospitalization History ER-abd . pain [facility] 09/18/22 [facility] Other Hospital Discharge instructions No data available for this section [facility] Progress note No data available for this section [facility] Summary Purpose Family History No Family History [...] and content) initial WMNDC Ozempic denied 09/19/2022WMN ANALYTICAL RESEARCH PROGRAM MANAGER f/u, pt. request, SEE TE Oral meds, x injectible, initial WMNDS waiting for lab order to be sentDS please callDS Cancelled DM appt Patient Care team informatio n (unrecognized section and content) Team Status: Active Member Role Status Dates NON STAFF Primary Care Provider Active Team Status: Inactive Member Role Status Dates NON STAFF Primary Care Provider Active Dedrick Fuller DO [facility] Attending Provider Active INFORMATION SOURCE (unrecogn ized section and content) DATE CREATED AUTHOR 11/26/2022 [place] [facility] DATE CREATED AUTHOR AUTHOR'S ORGANIZ ATION 12/03/2022 [facility] DATE CREATED AUTHOR AUTHOR'S ORGANIZ ATION 08/16/2023 [facility] DATE CREATED AUTHOR AUTHOR'S ORGANIZ ATION 03/21/2024 [facility] [place] [facility] DATE CREATED AUTHOR AUTHOR'S ORGANIZ ATION 04/06/2024 [facility] dical Specialists EPIC Goals (unrecognized section and content) Goals may [...] BE BASED ON THE PRIMARY CLINICAL RECORDS. [employer] [facility]. provides no warranty or guarantee of the accuracy or completeness of information in this document.
== END 2024-04-07 16:26 | disposition home or self-care (01) ==
LOC: US 16:25
PROVIDERS: PCP Family Medicine; Visit Provider Physician Assistant
DX: R10.2 Pelvic and perineal pain (principal); N83.291 Other ovarian cyst, right side
CPT/HCPCS: 76830; 76856

== ENCOUNTER 2024-05-03 10:54 | Outpatient (OUT) | payer OTHER, SELFPAY ==
--- NOTE | 2024-05-03 | XR_ITS ---
The [address] [address] Patient Name: HORACIO KEATING MRN: [id number] date: 1975 Sex: F Assigned Patient Location: Current Patient Location: Accession/Order Number: [id number] Exam Date: 05/03/2024 11:00 Report Date: 05/04/2024 11:12 At the request of: LUZ ELENA BEASLEY Procedure: XR hip RT 2V w/ pelvis PROCEDURE: XR hip RT 2V w/ pelvis HISTORY: RIGHT HIP PAIN COMPARISON: None. FINDINGS: BONES:No fracture, acute abnormality, or significant arthropathy. SOFT TISSUES:No visible soft tissue swelling. EFFUSION:None visible. OTHER: Negative. XR/XR hip RT 2V w/ pelvis IMPRESSION: 1. No acute bone abnormality or significant degenerative joint disease. 2. 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 Electronically authenticated by: LUZ ELENA SAUCEDA Date: 05/04/2024 11:12
--- NOTE | 2024-05-03 | XR_ITS ---
The [address] [address] Patient Name: HORACIO KEATING MRN: [id number] date: 1975 Sex: F Assigned Patient Location: Current Patient Location: Accession/Order Number: [id number] Exam Date: 05/03/2024 11:00 Report Date: 05/04/2024 11:10 At the request of: LUZ ELENA BEASLEY Procedure: XR hand RT min 3V PROCEDURE: XR hand RT min 3V HISTORY: RIGHT HAND PAIN , second proximal interphalangeal joint. COMPARISON: None. FINDINGS: BONES:Narrowing of the interphalangeal joints involving second through 5th digits. Small osteophytes involving the second digit proximal and distal interphalangeal joints. SOFT TISSUES:No visible soft tissue swelling. EFFUSION:None visible. OTHER: Negative. XR/XR hand RT min 3V IMPRESSION: 1. Multifocal mild degenerative joint disease, slightly greater involving the second digit. Electronically authenticated by: LUZ ELENA SAUCEDA Date: 05/04/2024 11:10
--- NOTE | 2024-05-03 | XR_ITS ---
The [address] [address] Patient Name: HORACIO KEATING MRN: [id number] date: 1975 Sex: F Assigned Patient Location: Current Patient Location: Accession/Order Number: [id number] Exam Date: 05/03/2024 11:28 Report Date: 05/04/2024 12:06 At the request of: LUZ ELENA BEASLEY Procedure: XR lumbar spine min 4V EXAMINATION: XR lumbar spine min 4V HISTORY: LUMBAR SPINE PAIN COMPARISON: No relevant comparison available. FINDINGS: BONES: Mild left convex curvature of lumbar spine. No fracture, spondylolisthesis, or change in alignment during flexion and extension. Mild degenerative facet arthropathy L4-5, L5-S1. DISC SPACES: Slight narrowing L5-S1. PARASPINOUS: Negative. No paraspinous abnormality is seen. OTHER: Negative. XR/XR lumbar spine min 4V IMPRESSION: 1. Suspect mild degenerative changes of lower lumbar spine. Electronically authenticated by: LUZ ELENA SAUCEDA Date: 05/04/2024 12:06
== END 2024-05-03 10:55 | disposition home or self-care (01) ==
LOC: EC 10:54
PROVIDERS: PCP Family Medicine; Visit Provider Orthopaedic Surgery
DX: M79.641 Pain in right hand (principal); M25.551 Pain in right hip; M54.16 Radiculopathy, lumbar region; M51.36 Other intervertebral disc degeneration, lumbar region; M19.041 Primary osteoarthritis, right hand
CPT/HCPCS: 72110; 73130; 73502

== ENCOUNTER 2024-05-17 12:59 | Outpatient (OUT) | payer OTHER, SELFPAY ==
--- NOTE | 2024-05-17 | MR_ITS ---
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 FINDINGS: For the purposes of numbering, sagittal T2 image # 8 extends from the T11 vertebral body superiorly to the S3 level inferiorly. PARASPINAL AREA: Normal with no visible mass. BONES: No fracture, pars defect, or osseous lesion. CORD/CAUDA EQUINA: Normal caliber, contour, and signal intensity. DISC LEVELS: 12-L1: No significant disc/facet abnormality, spinal stenosis, or foraminal stenosis. L1-L2: No significant disc/facet abnormality, spinal stenosis, or foraminal stenosis. L2-L3: No significant disc/facet abnormality, spinal stenosis, or foraminal stenosis. L3-L4: Moderate central canal narrowing without significant foramen narrowing. Minimal disc bulging and no appreciable disc height reduction. Bilateral facet arthropathy and ligamentum flavum thickening. 8.5 mm synovial cyst projecting into the central canal from left facet joint displacing the nerve roots. L4-L5: Early degenerative disc disease is present without focal protrusion or neural impingement. L5-S1: Mild central canal narrowing without significant foraminal narrowing. Moderate-marked right facet arthropathy. Mild on left. MR/MR lumbar spine wo con IMPRESSION: 1. Moderate central canal narrowing at L3-4 secondary to bilateral facet arthropathy, ligamentum flavum thickening, and left facet joint synovial cyst projecting into central canal. No appreciable impingement of the nerve roots. Electronically authenticated by: LUZ ELENA SAUCEDA Date: 05/18/2024 15:19
--- OUTSIDE RECORDS SUMMARY | 2024-05-17 13:06 | XMS_ITS ---
Patient Summarization (C-CDA 2.1 CCD) Created on: May 17, 2024 HORACIO KEATING : 1975 Sex: Female Author Organization Sample organization Care Team Providers Care Integrity Assessor Name Role Phone Nahid Mccoy Unavailable Clarice [...] Care Provider UnavailDO Dedrick Alfaro Attending Provider [phone] Nicola Neff Attending Unavailab Nicola Anderson Admitting Unavailab SAMI Matos Primary Care Unavailable JESSICA SANCHEZ Attending Unavailable AURA MURILLO Attending Unavailable Allergies Allergy Classification Reported Allergen(s) Allergy Type Date of Onset Reaction(s) Facility (7 sources) NITROFURANTOIN, MACROCRYSTALS / Nitrofurantoin, Monohydrate; 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: [nitrofurantoin] Drug Allergy Neck swelling (finding) [facility] (1 source) Albuterol Drug Allergy [facility] Comment on above: NEED TO CUT DOWN ADR ENALIN TO PREVENT SEIZURES (2 sources) Bee/Wasp/Ant venom; 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: [Bee Stings] Allergy to substance Nausea, Swelling [facility] (1 source) PECANS 1 Food allergy [facility] Comment on above: AIRWAY CONSTRICTION (2 sources) Albuterol; 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: [albuterol] Drug Allergy [facility] (1 source) Egg; 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: [Eggs] Food allergy (disorder) [facility] (4 sources) Nitrofurantoin; 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: [Macrobid] Drug Allergy 2 [facility] (1 source) PECANS; 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: [PECANS] Food allergy (disorder) [facility] (2 sources) bee venom Drug allergy (disorder) 5 [facility] (2 sources) egg extract Drug Allergy 5 [facility] (2 sources) pecan pollen extract Drug Allergy [facility] (2 sources) tree nut, unspecified Drug allergy (disorder) 5 [facility] Encounters Encounter Date Encounter Type Care Provider Facility Start: 04-05-2024 End: 04-05-2024 ambulatory AURA MURILLO Not Available Start: 03-15-2024 End: 03-15-2024 Emergency department patient visit Nicola Neff Facility:[facility] Start: 10-22-2023 End: 10-22-2023 ambulatory JESSICA SANCHEZ Not Available Start: 08-15-2023 End: 08-15-2023 ambulatory Dedrick Fuller Facility:[facility] Start: 08-15-2023 End: 08-15-2023 ambulatory NON STAFF [facility] Work Phone: Start: 08-15-2023 End: 08-15-2023 Departed Referred [facility] [address] Work Phone: Start: 12-05-[address] SAMI MARINELLI Facility :[facility] Start: 11-09-2022 End: 11-10-[address] DOCTOR STEIN Facility:[facility] Start: 11-01-2022 End: 11-02-2022 ambulatory Nicola [place]CHA[place]N Facility: [facility] Start: 11-01-2022 End: 11-01-2022 Patient encounter procedure Nicola BUCHANAN General Surgery [facility] Start: 10-29-2022 End: 10-29-2022 ambulatory Clarice Hull Other [facility] Other Start: 10-29-2022 Telephone encounter [facility] Start: 10-14-2022 End: 10-14-2022 ambulatory Clarice Hull Other [facility] Other Start: 10-14-2022 Telephone encounter Clarice [facility] Start: 10-04-2022 ambulatory Nicola [place]CHANAN Facility:[facility] Start: 10-01-2022 (FCCCWMNF/U) Weight Management f/u Clarice Hull [facility] Start: 10-01-2022 End: 10-02-[address] LUZ ELENA SAUCEDA [facility] Other Start: 09-19-2022 End: 09-19-2022 ambulatory Nahid Mccoy Other [facility] Other Start: 09-19-2022 Telephone encounter Nahid [facility] Start: 09-18-2022 End: 09-18-[address] LUZ ELENA SAUCEDA Facility:[facility] Start: 09-12-2022 End: 09-13-[address] ABIGAIL SHEEHAN Facility:[facility] Start: 08-28-2022 End: 08-28-2022 ambulatory Nahid Mccoy Other [facility] Other Start: 08-28-2022 Nutrition therapy Nahid Mccoy [facility] Start: 07-22-2022 Encounter for genera l adult medical examination without abnormal findings DR SAMI MARINELLI [facility] Start: 07-19-2022 End: 07-20-[address] [...] for preprocedural laboratory examination DR AURA MURILLO [facility] Start: 05-13-2022 End: 05-14-[address] AURA MURILLO Facility:[facility] Start: 05-13-2022 End: 05-14-2022 Encounter for preprocedural laboratory examination DR AURA MURILLO Facility:[facility] Start: 05-11-2022 Encounter for preprocedural cardiovascular examination DR AURA MURILLO [facility] Start: 05-08-2022 End: 05-09-[address] SAMI MARINELLI Facility:[facility] Start: 05-08-2022 End: 05-09-2022 Encounter for preprocedural cardiovascular examination DR SAMI MARINELLI Facility:[facility] Start: 05-02-2022 End: 05-02-[address] AURA MURILLO Facility:[facility] Start: 02-19-2022 End: 02-20-[address] SAMI MARINELLI Facility:[facility] Start: 12-04-2021 End: 12-04-[address] SAMI MARINELLI Facility:[facility] Immunizations Immunization Date Immunization Notes Care Provider Fa cility NEGATED: Highlighted row has not occurred!11-01-2022 influenza virus vaccine, unspecified formulation Nicola BUCHANAN General Surgery [place] Medications Current Medications Medication Drug Class(es) Dates [...] 10/30/22 Status: Ordered take 1 capsule by [facility] every twenty-four hours Omeprazole 40 MG [...] Subcutaneous Weekly for 28 days Aug, Active Payers Date Payer Category Payer Self-pay [id number] 1975 Unknown [id number] 2.16.8 40.1.497267.3.579.2.727 1975 Unknown [id number] 2.16.84 0.1.432049.3.579.2.593 1975 Unknown [id number] 2.16.84 0.1.568434.3.579.2.593 1975 Unknown [id number] 2.16.84 0.1.539165.3.579.2.593 1975 Unknown [id number] 2.16.84 0.1.976444.3.579.2.593 1975 Unknown [id number] 2.16.84 0.1.120516.3.579.2.593 1975 Unknown [id number] 2.16.84 0.1.423105.3.579.2.593 1975 Unknown [id number] 2.16.84 0.1.816106.3.579.2.593 1975 Unknown [id number] 2.16.84 0.1.068980.3.579.2.593 1975 Unknown [id number] 2.16.84 0.1.693273.3.579.2.593 1975 Unknown [id number] 2.16.84 0.1.101763.3.579.2.593 1975 Unknown [id number] 2.16.84 0.1.913978.3.579.2.593 1975 Unknown [id number] 2.16.84 0.1.489563.3.579.2.593 1975 Unknown [id number] 2.16.84 0.1.771291.3.579.2.593 1975 Unknown [id number] 2.16.84 0.1.636761.3.579.2.593 1975 Unknown [id number] 2.16.8 40.1.736828.3.579.2.718 1975 Unknown [id number] 2.16.84 0.1.540325.3.579.2.1259 1975 Unknown [id number] 2.16.840 .1.933751.3.579.2.1259 1958 Self-pay [id number] 1958 Unknown [id number] 2. 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] Onset: 2 Episodic Other [...] [CONTACT W/AND (SUSP) EXPOS COVID-19] Onset: 12-04-2021 Procedures Date Procedure Procedure Detail Performing Clinician [...] chest wall and left upper abdomen Nicola BUCHANAN Abdominoplasty and liposuction Nicola CANDELARIOL Arthroscopy of knee Nicola CANDELARIOL Comment on above: LEFT Breast biopsy and re lated procedures Nicola CANDELARIOL Comment on above: LEFT section Nicola CANDELARIO L Diagnostic endoscopi c examination of ovary Nicola BUCHANAN Comment on above: OVARIAN CYSTS X3 Endometrial ablation Nicola CANDELARIOL Extraction of wisdom tooth Jered BUCHANAN Laparoscopic cholecystectomy Nicola CANDELARIOL Laparoscopic excisio n of cyst of left ovary Nicola BUCHANAN Laparoscopic excisio n of cyst of right ovary Nicola CANDELARIOL Ligation of fallopian tube Jered BUCHANAN Comment on above: DONE WITH C SECTION LIPOMA EXCISION 4 Nicola MARCELLE Comment on above: ABDOMEN X3 REPAIR FOR TMJ Nicola BUCHANAN Results Test Name Value Interpretation Reference Range Facility Coding Summaryon 03-19-2024 Coding Summary HTMLBase 64 FxspteizEOs8uUu+PGhlY WQ+WT4GUVVkZ13hlEFrcT 6wV8PRGJlOShhoZXQIRCt BEjQvuwZsDX8vuFUxRPLk IC8+CD8kHZJoRmdxqUSfl 0L7fRL3O37opr0rVCdjuW K2TTUuXwFpmenlu6nchEr 6IDcuNmluOyBt NZShtK06MSK5fK79Vi41l MMdyXGnl3fbjNr3HuMhSS WiQGY9zBzzUFwjq7QdJZY eX38edJZir3P5 KBDgdAftfNGwQtJzgZY5q P5fKAquoxeec8schrexEj l8je33gZXbp0L5rSY2S1W owsX3ZYZbaOWj FmbvaDVEmH0ujcoib3yzq exjXrKhOZNeCUu2RHh3FK NtsYtaMnVjFU87IJH8OQE gyzTgO1MyESZy jRebXvM6f2X2Ng5ZW5SKU lveS9BCDMHQRMrvyZF+PC 19dl23C1OyAvhuUhs5IVW rLCF9pJJ1sW0i VKYzHFlpp4G0eVV6V0Bxk iJxqh1dt6wnRAYdDSlhH7 6dgKMbl6J4BYQdcSU2JGQ duZgjOiGerV44 Oyc+BTCioFudb1MhXwupl 8ezb1wjoQh5FxkiTKPnqv SjxPgvVDA8n7PnNf1aYXK rmIL4zKA3iB5m WtEpJcP5KDhvP676TyNug FCnUdpfV46wR5VzsJR+PH EzYos1KNCetHhxAV8fS1Z hZGRpbmctbGVm rEtjXT3aPJGsxyxoXOWtp J9iGRAbC6a1CtEmWsT3WU ofO4XtVPLrdglhTb40gV8 xCgJmOkH4RIze M5WhffA7OIQdqFSrPOdtU MN5M99jb8U9TFMnTOAjOL D1lWO5uA4klYkovyyafTD mdDsgdmVydGlj FXccQHwyV500QKArpUvwV kNvZGluZyBEYXRlOiAgMD QvMTkvMjAyNDwvdGQ+PHR nGIM4gYplKOJj xYGmLPboZy5ifMqfcGakL N5dQIAfqryzASHnlJ2lHD MsdVLkmZsaOM3dZTImyix lb797BuWlOJT8 DWQupPMnB1GobB0gLuWvB OGqYYDdE6TbyBJxDKolA0 03WGueSmI0OMAtahAjY0G sLWFsaWduOiB0 a6P6Mi2Lq2EvwaihI6Zze GIqKeZrUxtgJIo4N0BsPj wvdHI+NT88LWAxBN21TLf 5LDH9hZjlJMyw AOJzO9OzfV1sCcJqQWYmJ GRkOyc+PHRhYmxlIHdpZH RoPScxMDAlJyBzdHlsZT0 mKw1lYNMeAOIx pMomqELsUgNlk1xkYVCqD OdzUX3rzCqtU2MlbGI5EJ Jxv5s2Zy31E88oY0QniHM +JZJthUQ9fGT5 gA1xLbQpToW9YXxaR751J yLxbBVvNejxw7ihq6hexM l3DrS9JOGdveWhvIfkNQR 9p5CkDc86O25m IHdpZHRoPSIxNSUiIHZhb Jaozd3gcN3cEp9+PGNvbC C6oRM6yO7aBqXrIcL2TEu eI080VfAujXAf Ohocu4suo1bguRb6OhUvJ YInwuSugRhjFTG6k2RlLj 32R7SdaKgli2LcIfe5nc3 1qWRfb8V6tYY3 O5RkMXVupzwwdCJmlSzwR R3qDDPhauldLTKvcM9uAL BlY0f5AdWhFlB1BWtpA4D jclI4XWQvlLMe LNBwvWWSnI4hzgiyo1suo shdCpMpTCXqKPl9OCr6JL VszRsfLmDxCRD0CnV4VWO 9mXUciD2geHbm utyuvI4xLif+PLU9tUKod WBUKU3eGdgrzTH+PHRkIH Z7nPkwBXgxYXOgxE9rAJP eN6v2GcPzLbF7 XJsbK9RjrcQ9BNDloTDlZ UKdoPCXyU0cdgnex9jatk yjAeNzBHWgNMv9MFe5VYW saWduOiBsZWZ0 XbU9RBR8mTIldV4wsTbbn ykwiC0vTas+QmlydGggRG H1MYa8X5InQmy3ZYFwmZy pNZ6jvFBtFBfg Bo6utRbgsSggVC6aDBWdc pcgw677PzTep4aoLORxmB TfWZcyYKK9O25ws6Y7POI fGSMtNJW0jKS0 oC5urXsnwpgigKJafBnpv cRobPinSXltRTitA405OG LdmJubVcCiFIe1M6YvDtp 2AHIflLnxVZ8j qVJuJPhzYi3sbTkjoGgeL R0lQGFhosngs990EpQze0 ivCUFcvSAvZQhvONZ7U31 wn9A7IMHfQGOm FHA9hZT5tU7iaUksfvtud GVmdDsgdmVydGljYWwtYW bkM467EIUnzPkcEoQzsOz 2J6CvZub2TREv kPazGI6baYJiDOlbKd3un LlitZbsWN7bPKWbfdzjj0 23KbOpz6shURBqlCXzVOa mDWO9F12eu3A4 FBDhZSOeYFH1pDF6qC4vk GlnbjogbGVmdDsgdmVydG qmRAxwAHkqH652OZVlpIj nPlBhdGllbnQg RVhhZLa2C2LpVjtshJZ+P D59NYOePN05kZNmqNOyq4 nftEe1QbAhKHYqTRN4nDf mUJpwz4QaGNOt N19tcFSne0A6AHMdlTrgj PCdSxAvuYO2iA1sOZphuo ydq3texmtyKyiff6fbei7 2pX11H62kUHyo ZHRoPSIzMCUiIHZhbGlnb z0keD3vMz7+SQQrxCD2wH B8mG0uFBSyHnP0BGrnV32 9InRvcCIvPjxj m0aie3dmeCu6DdO9VLWbq aCrzHhjQKQ2o2KiNn58I7 9sIHdpZHRoPSIyMCUiIHZ opZozfc6pxB6l Ii8+OOQroRH8dDK2oC9rW hLuDdU4BEgmJ578OuKluO GpCphxA47rQ3UtuAW+PHR aNdw7KWHiqNhq NF9yjMJwMCzzTu2pMZE8X yMxHwGvTTpqI4CpBQJudn fkckifeXF6LHQjURDwjQ0 2Hw1qpAdaGPXw zLKWeG7ypynib7lbypbvA cVcSKFhZXm7KIj3VJUafC otOgGjPNR6ZcR3AWR0oNM gvL5odWbvasfs rN1fS9VkXMAlemnbLy94w Z9kQjVlJnQ8LNibMcl+Q0 8LFKXGMWTTOCDFES4VNR2 ZQ24PHJabyYB+ AGKuMBV3fXutPRivTISmc K1wOULhC8u9PdQuNhE5CN cxB6NgFASdjmstLk13uN4 tRpUfPbG4ZOif O6RgkgE3ACOwqUKdFJvrO BK4X55fd2P2DCZiHHObFU G8kHV5sL5plRdomepkaCN mdDsgdmVydGlj SKbaMMwpR466RNVpdRkyW eL0JbQ1KnD0JbT5Z4ShQs m9MXZbmMrxWO7xmVQkPNt qEf7dwMpeaFri JA0tQPUrnezqWKWgbO0xR QSgyRLetKpmYM6rPFAayj qfe875DrZoBED0KWXfjTF eC7JeuL2tZaSe YWMwSCUnH5NbyPNaLTbtS 769AJmoVdG5MTGezfJwZ6 EfLPMyqOsyOjG3r3K7Ap3 0NyBZZWFyczwv dGQ+WFZxNMS6jOxcZBgdX HMmqC9qFASoD7z3BsLjIo Z9PFteY9PmSRGgbgycIy4 9hB1lObLxRbZ4 SAwmQ1FdvsT5FAAmqMYnD PauVZT4H45ei6M1JISmFA EeDWL5mTE7yS7trHystrv gbGVmdDsgdmVy dKleCHnzEAfeY171ANHff DsnPkZFTUFMRTwvdGQ+PH NzEKF8kBxgDIcvNTKlxH4 uEUJnB4w0LkZe CxH6YMaiA5TnTXKdhggpD c49zD4sEcYmNaP9CXnuI3 VzikD8UHCdhHOaYLfxCNF 9I89kg8C3DVNo DUYhVIS7bIS2tB6kxOdkp jogbGVmdDsgdmVydGljYW ydZWrhH744LXPusSpxSbS lUEHfCK7htOth dGQ+VZ91ut24B3CwMcnsG wp6CGBjVKM6rZQ5jF4kJY EhZVqvo4B7qNA4G0PqcvR zck7hn2knYDIk OTplZ74afAEoh1A9QOWzl FK7RYLzyWtqNuMrgS90Gb c+DBJstOoud3XxMbzah2y hj7zuwDl6KgCj LHEnktGsaMifQPK4e8PiJ h87W93jBWveDCYcVCKfSU PyLITcrZvpce3gqN8lMc2 +TAHrrPK8gXV8 aB2jBwAhZtK9IEebA799A pOrhXAcEkxrb3wmc3bxzW p6UeAxTIJqsqJzjPkpSSU 8j3RvTf68D4Fy wFusr7AgPqv3gn19lOPnn 5V1cOT9Y1NtXDQumwmslF IocFbsMO4nMETleblsAFJ kbM5rZGWiB4d0 IrNaTnE2INcmV0DiiiC8H FVkhOVnBQDkkGVYrQ4xyc bbz7vknsmtZmGvQUTrBZr 5LNo9PLOkbPkp NcNtMJN1JpZ9PYS5tGMlg E0zzUxxezvmcB6aHai+UG k0u7attQJaXR5eeUU3MA6 5PV41cQBzq5L7 wXK8O9EvZTXvpkvsknlea XP6DBDqILQiyM47Ma4gdT iwCi3iOERdJVG7ROQspYZ pZ3WjqD1tZdKx IXSpMJTeT9LrpZBoYGouN 256KDaxNaL4WLGisvYdL9 ZsXALufUvpQoA4d5R4Fl6 VBQ38TM62SD26 iJEaj0F5xPY0Y8BqNYDze pvbvnatqKF2PEAlSQZkhR 41Cr5rrPlkFy1sTHJnBMA 3JJDpgDZyR3Ah qY0sZlGjHRYmJMReI1Dqw BUsJPsyO535CCocZtX9KZ UdwbAeD5OvTKNtcRpbIkG 2q9L5Ki3XLp68 RR08NT89yKFci4T7nRS7G 1RoFWYxtzydtwhniUY6ZM AeZQAitY08Tp9oqVatHv4 nCOBoKFV9EFSn xMWuL0XcqQ8nAiVmXAPgY AAtO4EhfDJnAAtvN909RH ygQeK3AQVrbzWvA8VpPOT ikFojYkF4r5X3 Yv9RILkmmyr9N9KnGxsxm HI+TX35OYJiDH93bHEjaR Icr5clqYd2GgMbMJTmJJF 2qVogWYmtq6Jc ZXI (more content not included)... [facility] Noteon 03-17-2024 Ambulance Note [id number]#[id number] OTGTIFF Normal [facility] C Urineon 03-17-2024 C Urine Urine Culture ordere d as a result of parameters set on specific urine dip and urine microsopic results. >100,000 cfu/ml Lactobacillus species Normal vaginal oleg isolated 10,000 cfu/ml Corynebacterium species (DIPTHEROID) No YOLANDE performed on this organism No pathogens isolated Normal [facility] Comment on above: Performed By: #### 5 [id number] ####[facility] (DEFAULT)[address] [place] [address] .Auto Diff 1on 03-15-2024 Auto [place] % 3 % Normal 12-12 [facility] Comment on above: Performed By: #### 5 [id number], [id number], [id number], [id number], [id number], 6890699, [id number] #### [facility] (DEFAULT) [address] [place] [address] Baso Abs# 0.1 x10 Normal 0.0-0.2 [facility] Comment on above: Performed By: #### 5 [id number], [id number], [id number], 59806298, 1368936406, 4784122, 2607742 #### [facility] (DEFAULT) [address] [place] [address] Basophils/100 WBC (Bld) 0.7 % Normal 0.2-2.0 [facility] Comment on above: Performed By: #### 5 [id number], [id number], [id number], 39028759, 6976369167, 7132609, 6331332 #### [facility] (DEFAULT) [address] [place] [address] Eos Abs# 0.1 x10 Normal 0.0-0.4 [facility] Comment on above: Performed By: #### 5 [id number], [id number], [id number], 39391894, 3571541489, 8947635, 5475355 #### [facility] (DEFAULT) [address] [place] [address] 11644 Eosinophils/100 WBC (Bld) 0.7 % Low 0.9-4.0 [facility] Comment on above: Performed By: #### 5 [id number], [id number], [id number], 00238699, 6366933975, 9486789, 2846446 #### [facility] (DEFAULT) [address] [place] [address] 32794 Lymph Abs# 2.2 x10 Normal 1.3-2.9 [facility] Comment on above: Performed By: #### 5 [id number], [id number], [id number], 27599157, 1825559636, 7853454, 7303954 #### [facility] (DEFAULT) [address] [place] [address] 50531 Lymphocytes/100 WBC (Bld) 14 % Normal 14-48 [facility] Comment on above: Performed By: #### 5 [id number], [id number], 6192134109, 66389585, 4357552262, 7956597, 1663712 #### [facility] (DEFAULT) [address] [place] [address] 89272 [place] Abs# 0.5 x10 Normal 0.0-0.8 [facility] Comment on above: Performed By: #### 5 [id number], [id number], 6899130525, 19178980, 7859387940, 7081827, 6014906 #### [facility] (DEFAULT) [address] [place] [address] 53019 Neut Abs# 13.5 x10 High 1.5-9.2 [facility] Comment on above: Result Comment: Slid e Reviewed Performed By: #### 5 [id number], [id number], 3157124650, 49487713, 3862455628, 9764652, 5183732 #### [facility] (DEFAULT) [address] [place] [address] 38975 Neutrophils/100 WBC (Bld) 82 % Normal 44-88 [facility] Comment on above: Performed By: #### 5 [id number], [id number], 9979446275, 49045801, 0087407984, 9141897, 8781314 #### [facility] (DEFAULT) [address] [place] [address] CBC w/ Auto Diffon Erythrocyte distribution width (RBC) [Ratio] 13.3 % Normal 11.5-15.0 [facility] Comment on above: Performed By: #### 5 [id number], [id number], 0298131562, 82147720, 1485923959, 5578851, 8701630 #### [facility] (DEFAULT) [address] [place] [address] Hematocrit (Bld) [Volume fraction] 45.0 % High 33.7-40.4 [facility] Comment on above: Performed By: #### 5 [id number], [id number], 5286895339, 03150277, 0871622438, 3031517, 4673016 #### [facility] (DEFAULT) [address] [place] [address] Hemoglobin (Bld) [Mass/Vol] 15.0 g/dL Normal 11.3-15.9 [facility] Comment on above: Performed By: #### 5 [id number], [id number], 4018995644, 30764524, 4339412110, 2719563, 9718954 #### [facility] (DEFAULT) [address] [place] [address] Man Diff? Auto Invalid Interpretation Code [facility] Comment on above: Performed By: #### 5 [id number], [id number], 2155077010, 38493628, 9686593181, 8762907, 1103737 #### [facility] (DEFAULT) [address] [place] [address] MCH (RBC) [Entitic mass] 32 pg Normal 24-34 [facility] Comment on above: Performed By: #### 5 [id number], [id number], 6329131524, 21511223, 8139854285, 3721497, 2187960 #### [facility] (DEFAULT) [address] [place] [address] MCHC (RBC) [Mass/Vol] 33 g/dL Normal 26-37 [facility] Comment on above: Performed By: #### 5 [id number], [id number], 2455759944, 50460397, 7798364303, 6138155, 5416220 #### [facility] (DEFAULT) [address] [place] [address] 88805 MCV (RBC) [Entitic vol] 95 fL Normal 81-100 [facility] Comment on above: Performed By: #### 5 [id number], [id number], 3297872807, 97602094, 4864102868, 9669528, 3416976 #### [facility] (DEFAULT) [address] [place] [address] Platelet 292 x10 Normal 138-427 [facility] Comment on above: Performed By: #### 5 [id number], [id number], 2891282794, 52536551, 7412081883, 2111418, 4810756 #### [facility] (DEFAULT) [address] [place] [address] Platelet mean volume (Bld) [Entitic vol] 8.7 fL Normal 6.3-10.2 [facility] Comment on above: Performed By: #### 5 [id number], [id number], 7596043619, 51463391, 2826188268, 2480509, 4419988 #### [facility] (DEFAULT) [address] [place] [address] RBC 4.74 x10 Normal 3.70-5.30 [facility] Comment on above: Performed By: #### 5 [id number], [id number], [id number], 73428013, 2935181936, 3689216, 8286001 #### [facility] (DEFAULT) [address] [place] [address] WBC 16.4 x10 High 3.5-10.5 [facility] Comment on above: Performed By: #### 5 [id number], [id number], 1897020664, 95274061, 7761188229, 7983846, 9125555 #### [facility] (DEFAULT) [address] [place] [address] [facility] Standardon 03-15-2024 Albumin [Mass/Vol] 4.1 g/dL Normal 3.5-5.0 [facility] Comment on above: Performed By: #### 5 [id number], [id number], 4538324779, 66805343, 1600145573, 2118241, 7910513 #### [facility] (DEFAULT) [address] [place] [address] 17545 Albumin/Globulin [Mass ratio] 1.3 {ratio} Low 1.4-2.6 [facility] Comment on above: Performed By: #### 5 [id number], 7549117870, 8650470312, 07657197, 7081182997, 5045567, 3629824 #### [facility] (DEFAULT) [address] [place] [address]5513 Alk Phos 39 IU/L Normal 32-91 [facility] Comment on above: Performed By: #### 5 [id number], 5929004743, 5793740013, 31929545, 2624602891, 9319406, 0201847 #### [facility] (DEFAULT) [address] [place] [address] 67817 ALT [Catalytic activity/Vol] 32.0 U/L Normal 14.0-54.0 [facility] Comment on above: Performed By: #### 5 [id number], 0963317462, 9601773939, 86829166, 1695743925, 1640842, 2310455 #### [facility] (DEFAULT) [address] [place] [address] 15505 Anion gap [Moles/Vol] 13.0 mmol/L Normal 5.0-19.0 [facility] Comment on above: Performed By: #### 5 [id number], [id number], 5306648916, 08472313, 6836030440, 4424256, 8135531 #### [facility] (DEFAULT) [address] [place] [address] 94905 AST [Catalytic activity/Vol] 25 U/L Normal 15-41 [facility] Comment on above: Performed By: #### 5 [id number], 5107547303, 9878527133, 28886807, 5029126684, 3985706, 0566562 #### [facility] (DEFAULT) [address] [place] [address] 63745 Bili Total 1.4 mg/dL High 0.3-1.2 [facility] Comment on above: Performed By: #### 5 [id number], 7065050913, 8951774270, 23249541, 7208815929, 5668974, 3821815 #### [facility] (DEFAULT) [address] [place] [address] 28766 Breakpoint Chem Normal [facility] Comment on above: Performed By: #### 5 [id number], 3807923863, 1550145410, 38112814, 8461457746, 9835299, 8454767 #### [facility] (DEFAULT) [address] [place] [address] 75159 Calcium [Mass/Vol] 8.8 mg/dL Low 8.9-10.3 [facility] Comment on above: Performed By: #### 5 [id number], 4411740036, 6335063118, 56971340, 0381447723, 0755408, 1523465 #### [facility] (DEFAULT) [address] [place] [address] 16787 Chloride [Moles/Vol] 105 mmol/L Normal 101-111 [facility] Comment on above: Performed By: #### 5 [id number], 3181033043, 5136784277, 10087995, 2969350265, 0955431, 0496156 #### [facility] (DEFAULT) [address] [place] [address] 79904 CO2 [Moles/Vol] 24 mmol/L Normal 21-32 [facility] Comment on above: Performed By: #### 5 [id number], 8044131018, 1742778517, 91925839, 8153324329, 9728191, 7102764 #### [facility] (DEFAULT) [address] [place] [address] 81388 Creatinine [Mass/Vol] 0.72 mg/dL Normal 0.60-1.30 [facility] Comment on above: Performed By: #### 5 [id number], 8515059853, 9023150159, 55413702, 2896529702, 6092361, 2665617 #### [facility] (DEFAULT) [address] [place] [address] 65897 eGFR AA >60 Invalid Interpretation Code [facility] Comment on above: Performed By: #### 5 [id number], 7019080650, 8058579562, 74018046, 6165199309, 3749036, 4737609 #### [facility] (DEFAULT) [address] [place] [address] 81200 eGFR Non AA >60 Invalid Interpretation Code [facility] Comment on above: Performed By: #### 5 [id number], 4312745825, 8319208834, 67350601, 8009842773, 0333611, 8616870 #### [facility] (DEFAULT) [address] [place] [address] Globulin (S) [Mass/Vol] 3.0 g/dL Normal 1.5-4.3 [facility] Comment on above: Performed By: #### 5 [id number], 4874856131, 8559369231, 41433564, 0026368922, 4971563, 0986006 #### [facility] (DEFAULT) [address] [place] [address] 78414 Glucose [Mass/Vol] 124.0 mg/dL High 74.0-118.0 [facility] Comment on above: Performed By: #### 5 [id number], 1030106245, 7778247258, 06042190, 1170975557, 0479868, 0341660 #### [facility] (DEFAULT) [address] [place], [place] [id number] Osmolality 278 mOsm/L Invalid Interpretation Code [facility] Comment on above: Performed By: #### 5 [id number], 3068127123, 7535481347, 36627574, 3226621701, 0370001, 2627620 #### [facility] (DEFAULT) [address] [place] [address] 96750 Potassium [Moles/Vol] 4.0 mmol/L Normal 3.6-5.1 [facility] Comment on above: Performed By: #### 5 [id number], 4190984234, 7458313635, 74907182, 9509254375, 8479204, [id number] #### [facility] (DEFAULT) [address] [place] [address] 63846 Protein [Mass/Vol] 7.1 g/dL Normal 6.5-8.1 [facility] Comment on above: Performed By: #### 5 [id number], [id number], [id number], [id number], [id number], [id number], [id number] #### [facility] (DEFAULT) [address] [place] [address] 43207 Sodium [Moles/Vol] 138.0 mmol/L Normal 136.0-144.0 [facility] Comment on above: Performed By: #### 5 [id number], [id number], [id number], [id number], [id number], [id number], [id number] #### [facility] (DEFAULT) [address] [place] [address] 90193 Urea nitrogen [Mass/Vol] 15 mg/dL Normal 8-26 [facility] Comment on above: Performed By: #### 5 [id number], [id number], [id number], [id number], [id number], [id number], [id number] #### [facility] (DEFAULT) [address] [place] [address] 17492 Urea nitrogen/Creatinine [Mass ratio] 20.8 mg/mg High 4.6-16.2 [facility] Comment on above: Performed By: #### 5 [id number], [id number], [id number], [id number], [id number], [id number], [id number] #### [facility] (DEFAULT) [address] [place] [address] 25223 ED Clinical Summaryon 2023 ED Clinical Summary [facility] - Emergency Department [address] [place] [address] ED Clinical Summary PERSON INFORMATION Name: HORACIO KEATING Age: 48 Years Sex: FEMALE : 1975 MRN: Acct#: Visit Reason: Shortness of breath; Anxiety; Blood pressure check; SOB Arrival: 03/15/2024 17:56:51 Discharge: 03/15/2024 20:31:00 LOS: 000 02:35 Check In: 03/15/2024 17:56:51 Checkout:03/15/2024 20:31:00 Address: [address] [place] [address] PCP: SAMI MARINELLI PROVIDER INFORMATION Provider Role Assigned Unassigned Nicola Neff DO ED Provider 03/15/2024 18:07:25 Solange MALHOTRA, Shanika Lawton ED Nurse 03/15/2024 18:08:57 Joanna Angeles RN [...] . Physical Exa (more content not included)... [facility] ED Note - Physicianon 2023 ED [...] No lymphadenopathy. Psychiatric: (more content not included)... Normal [facility] ED Note-Nursingon 03-15-2024 ED Note-Nursing Patient presents to the ER via [facility] for shortness of breath, anxiety. Patient [...] 12 lead was regular in rate Normal [facility] ED Patient Summaryon 024 ED Patient Summary [facility] - Emergency Department [address] [place] [address] PATIENT DISCHARGE INSTRUCTIONS Patient Information Name: HORACIO KEATING Age: 48 Years Date of : 1975 Reason For Visit: Shortness of breath; Anxiety; Blood pressure check; SOB Arrival Time: 03/15/2024 17:56:51 Primary Care Physician: SAMI MARINELLI Attending Physician: Nicola Neff DO Comment: Visit Diagnosis: Diagnoses This Visit Anxiety ([id number]) Blood pressure check ([id number]) Hypertension (I10) Panic attack (F41.0) Shortness of breath ([id number]) Urinary tract infection (N39.0) The Pharmacy at [facility] is open Friday through Friday from 9A [...] alcohol and/or drug addiction problems; contact the [facility] 23/06 Crisis Hotline -Text 6SUGO ei [phone]. If you received any narcotics, sedation, or [...] legal documents With: Address: When: SAMI MARINELLI [facility], [address] [place] [id number] Business (1) Within 3 to 5 days Comments: Call for follow up appointment Return if symptoms worsen Medication Information: The exam and treatment you received today in the [facility] Emergency Department were for an urgent problem and are not intended as complete care. It is important for you to follow up with a doctor, nurse practitioner, or physician?s physical therapy assistant for ongoing care. If your symptoms [...] so we can reach you if necessary. [facility] Emergency Department has provided you with a complete list of medications post discharge. Please inform your public housing manager/provider of your visit and for further instruction [...] Vitals an (more content not included)... Normal [facility] Extra Greenon 03-15-2024 Tube Collected Yes Invalid Interpretation Code [facility] Comment on above: Performed By: #### 5 [id number], [id number], [id number], [id number], [id number], [id number], [id number] #### [facility] (DEFAULT) [address] [place] [address] 75335 PTon 03-15-2024 INR Coag (PPP) [Relative time] 0.94 {INR} Normal 0.91-1.11 [facility] Comment on above: Performed By: #### 5 [id number], [id number], [id number], [id number], [id number], [id number], [id number] #### [facility] (DEFAULT) [address] [place] [address] 65404 PT 9.8 second(s) Normal 9.7-11.8 [facility] Comment on above: Performed By: #### 5 [id number], [id number], [id number], [id number], [id number], 2702073, 5395810 #### [facility] (DEFAULT) [address] [place] [address] TnI HSon 03-15-2024 Troponin I High Sensitivity 7.7 pg/mL Normal <=15.0 [facility] Comment on above: Performed By: #### 5 [id number], [id number], [id number], [id number], [id number], 3613907, 6332589 #### [facility] (DEFAULT) [address] [place] [address] UA Eyqqn7ow 03-15-2024 UA Amorph. 1+ [facility] Comment on above: Order Comment: Urina lysis Microscopic order added on by [employer] Expert Rules system. Performed By: #### 5 [id number], [id number], [id number] ####[facility] (DEFAULT)[address] [place] [address] UA Bacteria 3+ Normal [facility] Comment on above: Order Comment: Urina lysis Microscopic order added on by [employer] Expert Rules system. Performed By: #### 5 [id number], [id number], [id number] ####[facility] (DEFAULT)[address] [place] [address] UA Mucous 1+ Normal [facility] Comment on above: Order Comment: Urina lysis Microscopic order added on by [employer] Expert Rules system. Performed By: #### 5 [id number], [id number], [id number] ####[facility] (DEFAULT)[address] [place] [address] UA RBC 3-5 Normal [facility] Comment on above: Order Comment: Urina lysis Microscopic order added on by [employer] Expert Rules system. Performed By: #### 5 [id number], [id number], [id number] ####[facility] (DEFAULT)[address] [place] [address] UA Renal Epi Rare [facility] Comment on above: Order Comment: Urina lysis Microscopic order added on by [employer] Rules system. Performed By: #### 5 [id number], [id number], [id number] ####[facility] (DEFAULT)[address] [place] [address] UA Squam Epi Many [facility] Comment on above: Order Comment: Urina lysis Microscopic order added on by [employer] Rules system. Performed By: #### 5 [id number], [id number], [id number] ####[facility] (DEFAULT)[address] [place] [address] UA WBC 3-5 [facility] Comment on above: Order Comment: Urina lysis Microscopic order added on by [employer] system. Performed By: #### 5 [id number], [id number], [id number] ####[facility] (DEFAULT)[address] [place] [address] UA w Culture if Ind Standard on 03-15-2024 Breakpoint UA [facility] Comment on above: Performed By: #### 5 [id number], [id number], [id number] ####[facility] (DEFAULT)[address] [place] [address] Color (U) Yellow [facility] Comment on above: Performed By: #### 5 [id number], [id number], [id number] ####[facility] (DEFAULT)[address] [place] [address] Culture? Indicated Invalid Interpretation Code [facility] Comment on above: Result Comment: Resu lt created by rule GL_MAGR_ADD_UA_CULT Result created by rule GL_MAGR_ADD_UA_CULT Result created by rule GL_MAGR_ADD_UA_CULT1 Result created by rule GL_MAGR_ADD_UA_CULT Performed By: #### 5 [id number], [id number], [id number] ####[facility] (DEFAULT)[address] [place] [address] Glucose (U) [Mass/Vol] Negative [facility] Comment on above: Performed By: #### 5 [id number], [id number], 4272997 ####[facility] (DEFAULT)[address] [place] [address] Ketones Ql (U) Negative [facility] Comment on above: Performed By: #### 5 [id number], [id number], [id number] ####[facility] (DEFAULT)[address] [place] [address]26 Micro? Indicated Invalid Interpretation Code [facility] Comment on above: Result Comment: Resu lt created by rule GL_MAGR_ADD_UA_MICRO Performed By: #### 5 [id number], [id number], [id number] ####[facility] (DEFAULT)[address] [place] [address] 66970 UA Bilirubin Negative Normal [facility] Comment on above: Performed By: #### 5 [id number], [id number], [id number] ####[facility] (DEFAULT)[address] [place] [address] 35541 UA Blood TRACE Abnormal NEGATIVE [facility] Comment on above: Performed By: #### 5 [id number], [id number], [id number] ####[facility] (DEFAULT)[address] [place] [address] 81673 UA Clarity SL CLOUDY Abnormal CLEAR [facility] Comment on above: Performed By: #### 5 [id number], [id number], [id number] ####[facility] (DEFAULT)[address] [place] [address] 61218 UA Leuk Est LARGE Abnormal NEGATIVE [facility] Comment on above: Performed By: #### 5 [id number], [id number], [id number] ####[facility] (DEFAULT)[address] [place] [address] 46427 UA Nitrite Negative Normal NEGATIVE [facility] Comment on above: Performed By: #### 5 [id number], [id number], [id number] ####[facility] (DEFAULT)[address] [place] [address] 37729 UA pH 6.0 Normal 5-8 [facility] Comment on above: Performed By: #### 5 [id number], [id number], 2954561 ####[facility] (DEFAULT)[address] [place] [address] 32600 UA Protein Negative Normal NEGATIVE [facility] Comment on above: Performed By: #### 5 [id number], [id number], 7344442 ####[facility] (DEFAULT)[address] [place] [address] UA Spec Grav 1.015 Normal 1.001-1.035 [facility] Comment on above: Performed By: #### 5 [id number], [id number], 5051614 ####[facility] (DEFAULT)[address] [place] [address] UA Urobilinogen 0.2 mg/dL Normal 0.2-1.0 [facility] Comment on above: Performed By: #### 5 [id number], [id number], [id number] ####[facility] (DEFAULT)[address] [place] [address] Urine Source Clean Catch Normal [facility] Comment on above: Performed By: #### 5 [id number], [id number], [id number] ####[facility] (DEFAULT)[address] [place] [address] XR Chest 1 View Frontalon XR Chest [...] MD 03/15/24 7:34 pm Technologist: Lizzy BRICEÑO Normal [facility] Basic Metabolic Panelon 08-01 Anion gap [Moles/Vol] 10.3 mmol/L Normal 6.0-15.0 [facility] Comment on above: Performed By: #### L IPID, BMP #### [address] Calcium [Mass/Vol] 9.1 mg/dL Normal 8.6-10.3 [facility] Comment on above: Performed By: #### L IPID, BMP #### [facility] [address] [place] [id number] [place] Chloride [Moles/Vol] 107 mmol/L Normal 98-107 [facility] Comment on above: Performed By: #### L IPID, BMP #### [facility] [address] [place] [id number] [place] CO2 [Moles/Vol] 26.7 mmol/L Normal 21.0-31.0 [facility] Comment on above: Performed By: #### L IPID, BMP #### [facility] [address] [place] [address] [place] Creatinine [Mass/Vol] 0.77 mg/dL Normal 0.60-1.20 [facility] Comment on above: Performed By: #### L IPID, BMP #### [facility] [address] [place] [address] [place] GFR/1.73 sq M.predicted MDRD (S/P/Bld) [Vol rate/Area] mL/min/{1.73_m2} Normal [facility] Comment on above: Performed By: #### L IPID, BMP #### [facility] [address] [place] [address] [place] Glucose [Mass/Vol] 97 mg/dL Normal 70-100 [facility] Comment on above: Result Comment: [place] Glucose Reference Range is dependent on time and content of last meal. Glucose of more than 200 mg/dL in a nonstressed, ambulatory subject supports the diagnosis of Diabetes Mellitus. ADA recommended reference range Performed By: #### L IPID, BMP #### [facility] [address] [place] [id number] [place] Potassium [Moles/Vol] 4.0 mmol/L Normal 3.5-5.1 [facility] Comment on above: Performed By: #### L IPID, BMP #### [facility] [address] [place] [id number] [place] Sodium [Moles/Vol] 140 mmol/L Normal 136-145 [facility] Comment on above: Performed By: #### L IPID, BMP #### [facility] [address] [place] [address] [place] Urea nitrogen [Mass/Vol] 10 mg/dL Normal 7-25 [facility] Comment on above: Performed By: #### L IPID, BMP #### [facility] [address] Calcium [Mass/volume] in Ser um or PlasmaOrdered By: Dedrick Fuller on 08-15-2023 Calcium [Mass/Vol] 9.1 mg/dL 8.6-10.3 [facility] Carbon dioxide, total [Moles /volume] in Serum or PlasmaOrdered By: Dedrick Fuller on 08-15-2023 CO2 [Moles/Vol] 26.7 mmol/L 21.0-31.0 [facility] Chloride [Moles/volume] in S altagracia or PlasmaOrdered By: Dedrick Fuller on 08-15-2023 Chloride [Moles/Vol] 107 mmol/L 98-107 [facility] Cholesterol [Mass/volume] in Serum or PlasmaOrdered By: Dedrick Fuller on 08-15-2023 Cholesterol [Mass/Vol] 166 mg/dL 140-200 [facility] Comment on above: Chol less than 200 m g/dl low riskChol 201-239 mg/dl borderline riskChol 240 mg/dl and greater high risk Cholesterol in LDL Calc [Mas s/Vol]Ordered By: Dedrick Fuller on 08-15-2023 Cholesterol in LDL [Mass/Vol] 95 mg/dL 0-100 [facility] Comment on above: LDL ATP III CLASSIFI CATIONLDL less than 100 mg/dL OptimalLDL 100-129 mg/dL Near or above optimalLDL 130-159 mg/dL Borderline highLDL 160-189 mg/dL HighLDL greater than 189 mg/dL Very high Cholesterol in VLDL Calc [Ma ss/Vol]Ordered By: Dedrick Fuller on 08-15-2023 Cholesterol in VLDL [Mass/Vol] 32 mg/dL [facility] Creatinine [Mass/volume] in Serum or PlasmaOrdered By: Dedrick Fuller on 08-15-2023 Creatinine [Mass/Vol] 0.77 mg/dL 0.60-1.20 [facility] Glucose [Mass/volume] in Ser um or PlasmaOrdered By: Dedrick Fuller on 08-15-2023 Glucose [Mass/Vol] 97 mg/dL 70-100 [facility] Comment on above: ADA recommended refe rence rangeRandom Glucose Reference Range is dependent on time and content of last meal. Glucose of more than 200 mg/dL in a nonstressed, ambulatory subject supports the diagnosis of Diabetes Mellitus. Lipid Panelon 08-15-2023 Cholesterol [Mass/Vol] 166 mg/dL Normal 140-200 [facility] Comment on above: Result Comment: Chol less than 200 mg/dl low risk Chol 201-239 mg/dl borderline risk Chol 240 mg/dl and greater high risk Performed By: #### L IPID, BMP #### [facility] [address] [place] [id number] [place] Cholesterol in HDL [Mass/Vol] 39 mg/dL Normal 23-92 [facility] Comment on above: Result Comment: HDL CHOL ATP-III CLASSIFICATION Cardiovascular Risk HDL > or equal to 60 mg/dL LOW HDL < 40 mg/dL HIGH Performed By: #### L IPID, BMP #### [facility] [address] [place] [id number] [place] Cholesterol.total/Mirta sterol in HDL [Mass ratio] 4.3 {ratio} Normal <5.0 [facility] Comment on above: Result Comment: PERF ORMED BY: [place] [address] PATHOLOGIST BOARD CERTIFIED FAMILY PHYSICIAN IRMA MARCELO M.D. Performed By: #### L IPID, BMP #### [facility] [address] [place] [id number] [place] LDL Cholesterol,Calculated 95 mg/dL Normal 0-100 [facility] Comment on above: Result Comment: LDL ATP III CLASSIFICATION LDL less than 100 mg/dL Optimal LDL 100-129 mg/dL Near or above optimal LDL 130-159 mg/dL Borderline high LDL 160-189 mg/dL High LDL greater than 189 mg/dL Very high Performed By: #### L IPID, BMP #### [facility] [address] [place] [id number] [place] Triglyceride w/Reflex 162 mg/dL High 0-149 [facility] Comment on above: Result Comment: TRIG ATP III CLASSIFICATION TRIG less than 150 mg/dL Normal TRIG 150-199 mg/dL Borderline high TRIG 200-500 mg/dL High TRIG greater than 500 mg/dL Very high Standard traceable to the Center for Disease Conrtrol and Prevention (CDC) test method. Performed By: #### L IPID, BMP #### [facility] [address] VLDL CHOLESTEROL 32 mg/dL Normal [facility] Comment on above: Performed By: #### L IPID, BMP #### [facility] [address] No Panel InformationOrdered By: Dedrick Fuller on 08-15-2023 Estimated GFR (CKD-EPI) > 60.0 mL/Min [facility] Creatinine Clearance (Chem N/A [facility] Potassium [Moles/volume] in Serum or PlasmaOrdered By: Dedrick Fuller on 08-15-2023 Potassium [Moles/Vol] 4.0 mmol/L 3.5-5.1 [facility] Serum or plasma anion gap de terminationOrdered By: Dedrick Fuller on 08-15-2023 Anion gap [Moles/Vol] 10.3 mmol/L 6.0-15.0 [facility] Serum or plasma high density lipoprotein (HDL) cholesterol measurementOrdered By: Dedrick Fuller on 08-15-2023 Cholesterol in HDL [Mass/Vol] 39 mg/dL 23-92 [facility] Comment on above: HDL CHOL ATP-III CLA SSIFICATION Cardiovascular RiskHDL > or equal to 60 mg/dL LOWHDL < 40 mg/dL HIGH Serum or plasma total choles terol/high density lipoprotein (HDL) cholesterol mass ratOrdered By: Dedrick Fuller on 08-15-2023 Cholesterol.total/Mirta sterol in HDL [Mass ratio] 4.3 {ratio} <5.0 [facility] Sodium [Moles/volume] in Ser um or PlasmaOrdered By: Dedrick Fuller on 08-15-2023 Sodium [Moles/Vol] 140 mmol/L 136-145 [facility] Triglyceride [Mass/volume] i n Serum or PlasmaOrdered By: Dedrick Fuller on 08-15-2023 Triglyceride [Mass/Vol] 162 mg/dL 0-149 [facility] Comment on above: TRIG ATP III CLASSIF ICATIONTRIG less than 150 mg/dL NormalTRIG 150-199 mg/dL Borderline highTRIG 200-500 mg/dL High TRIG greater than 500 mg/dL Very highStandard traceable to the Center for Disease Conrtrol and Prevention (CDC) test method. Urea nitrogen [Mass/volume] in Serum or PlasmaOrdered By: Dedrick Fuller on 08-15-2023 Urea nitrogen [Mass/Vol] 10 mg/dL 7- [facility] GTT 2 HRon 11-09-2022 Glucose [Mass/Vol] 107 mg/dL Critically high 74-106 [facility] Comment on above: Performed By: #### U LG, CRP #### [facility] [address] [place] [address] [address] Soo Donnelly Glucose [Mass/Vol] 152 mg/dL Normal [facility] Comment on above: Performed By: #### U LG, CRP #### [facility] [address] [place] [address] [address] Soo Donnelly Glucose [Mass/Vol] 121 mg/dL Normal [facility] Comment on above: Performed By: #### U LG, CRP #### [facility] [address] [place] [address] [address] Soo Donnelly Facesheeton 11-05-2022 Facesheet [id number] .[id number]:127 Normal [facility] Physician Referralon 022 Physician Referral [id number] .00CD:127 Normal [facility] CT ABD/PELV W CONon 10-01-[address] ABD/PELV W CON EXAMINATION: CT ABD/PELV [...] ELENA SAUCEDA Date: 2022-10-01 10:31 Normal [facility] CBC AUTO DIFFon 09-18-2022 BASO # 0.0 103/ul Normal 0.0-0.1 [facility] Comment on above: Performed By: #### A NAD #### [facility] [address] [place] [address] Dr. Soo Donnelly Basophils/100 WBC (Bld) 0.4 % Normal 0.2-2.0 [facility] Comment on above: Performed By: #### A NAD #### [facility] [address] [place] [address] Dr. Soo Donnelly EO # 0.1 103/ul Normal 0.0-0.7 [facility] Comment on above: Performed By: #### A NAD #### [facility] [address] [place] [address] Dr. Soo Donnelly Eosinophils/100 WBC (Bld) 1.8 % Normal 0.9-7.0 [facility] Comment on above: Performed By: #### A NAD #### [facility] [address] [place] [address] Dr. Soo Donnelly Erythrocyte distribution width (RBC) [Ratio] 11.9 % Normal 11.0-15.0 [facility] Comment on above: Performed By: #### A NAD #### [facility] [address] [place] [address] Dr. Soo Donnelly Hematocrit (Bld) [Volume fraction] 43.9 % Normal 36.0-48.0 [facility] Comment on above: Performed By: #### A NAD #### [facility] [address] [place] [address] Dr. Soo Donnelly Hemoglobin (Bld) [Mass/Vol] 14.6 g/dL Normal 12.0-16.0 [facility] Comment on above: Performed By: #### A NAD #### [facility] [address] [place] [address] Dr. Soo Donnelly IG # 0.01 10e3/ul Normal 0.00-0.03 [facility] Comment on above: Performed By: #### A NAD #### [facility] [address] [place] [address] Dr. Soo Donnelly IG % 0.1 % Normal 0.0-0.5 [facility] Comment on above: Performed By: #### A NAD #### [facility] [address] [place] [address] Dr. Soo Donnelly LYMPH # 2.7 103/ul Normal 1.2-3.8 [facility] Comment on above: Performed By: #### A NAD #### [facility] [address] [place] [address] Dr. Soo Donnelly Lymphocytes/100 WBC (Bld) 39.9 % Normal 20.5-60.0 [facility] Comment on above: Performed By: #### A NAD #### [facility] [address] [place] [address] Dr. Soo Donnelly MANUAL DIFF REQ NO Normal [facility] Comment on above: Performed By: #### A NAD #### [facility] [address] [place] [address] Dr. Soo Donnelly MCH (RBC) [Entitic mass] 31.7 pg Normal 26.7-34.0 [facility] Comment on above: Performed By: #### A NAD #### [facility] [address] [place] [address] Dr. Soo Donnelly MCHC (RBC) [Mass/Vol] 33.3 g/dL Normal 29.9-35.2 [facility] Comment on above: Performed By: #### A NAD #### [facility] [address] [place] [address] Dr. Soo Donnelly MCV (RBC) [Entitic vol] 95.4 fL Normal 81.0-99.0 [facility] Comment on above: Performed By: #### A NAD #### [facility] [address] [place] [address] Dr. Soo Donnelly MONO # 0.4 103/ul Normal 0.3-0.8 [facility] Comment on above: Performed By: #### A NAD #### [facility] [address] [place] [address] Dr. Soo Donnelly Monocytes/100 WBC (Bld) 5.9 % Normal 1.7-12.0 [facility] Comment on above: Performed By: #### A NAD #### [facility] [address] [place] [address] Dr. Soo Donnelly NEUT # 3.5 103/ul Normal 1.4-6.5 [facility] Comment on above: Performed By: #### A NAD #### [facility] [address] [place] [address] Dr. Soo Donnelly Neutrophils/100 WBC (Bld) 51.9 % Normal 43.0-75.0 [facility] Comment on above: Performed By: #### A NAD #### [facility] [address] [place] [address] Dr. Soo Donnelly Platelet mean volume (Bld) [Entitic vol] 10.8 fL Normal 9.5-13.5 [facility] Comment on above: Performed By: #### A NAD #### [facility] [address] [place] [address] Dr. Soo Donnelly PLT 220 103/ul Normal 150-450 [facility] Comment on above: Performed By: #### A NAD #### [facility] [address] [place] [address] Dr. Soo Donnelly RBC 4.60 106/ul Normal 4.20-5.40 [facility] Comment on above: Performed By: #### A NAD #### [facility] [address] [place] [address] Dr. Soo Donnelly WBC 6.8 103/ul Normal 4.0-11.0 [facility] Comment on above: Performed By: #### A NAD #### [facility] [address] [place] [address] Dr. Soo Donnelly ER URINE PROFILEon 2 Bilirubin Ql (U) Negative Normal NEGATIVE [facility] Comment on above: Performed By: #### U LG, CRP #### [facility] [address] [place] [address] Dr. Soo Donnelly Clarity (U) CLEAR Normal CLEAR [facility] Comment on above: Performed By: #### U LG, CRP #### [facility] [address] [place] [address] Dr. Soo Donnelly Color (U) LT. YELLOW Normal YELLOW [facility] Comment on above: Performed By: #### U LG, CRP #### [facility] [address] [place] [address] Dr. Soo Donnelly ERUAHD A micrscopic examination will be performed if indicated. Normal [facility] Comment on above: Performed By: #### U LG, CRP #### [facility] [address] [place] [address] Dr. Soo Donnelly Glucose Ql (U) Negative Normal NEGATIVE [facility] Comment on above: Performed By: #### U LG, CRP #### [facility] [address] [address] [address] Soo Donnelly Hemoglobin Ql (U) Negative Normal NEGATIVE [facility] Comment on above: Performed By: #### U LG, CRP #### [facility] [address] [address] [address] Soo Donnelly Ketones Ql (U) Negative Normal NEGATIVE [facility] Comment on above: Performed By: #### U LG, CRP #### [facility] [address] [address] [address] Soo Donnelly LEUKOCYTES Negative Normal NEGATIVE [facility] Comment on above: Performed By: #### U LG, CRP #### [facility] [address] [place] [address] Dr. Soo Donnelly Nitrite Ql (U) Negative Normal NEGATIVE [facility] Comment on above: Performed By: #### U LG, CRP #### [facility] [address] [place] [address] Dr. Soo Donnelly pH (U) 6.0 [pH] Normal 5-9 [facility] Comment on above: Performed By: #### U LG, CRP #### [facility] [address] [place] [address] Dr. Soo Donnelly SPEC GRAVITY 1.015 Normal 1.005-<=1.02 5 [facility] Comment on above: Performed By: #### U LG, CRP #### [facility] [address] [place] [address] Dr. Soo Donnelly UA PROTEIN Negative Normal NEGATIVE/ TRACE [facility] Comment on above: Performed By: #### U LG, CRP #### [facility] [address] [place] [address] Dr. Soo Donnelly UR MICRO IND NOT INDICATED Normal [facility] Comment on above: Performed By: #### U LG, CRP #### [facility] [address] [place] [address] Dr. Soo Donnelly Urobilinogen Qn (U) 0.2 {Roma'U}/dL Normal 0.2 - 1. 0 [facility] Comment on above: Performed By: #### U LG, CRP #### [facility] [address] [address] [address] Soo Donnelly PROF CHEM 8 (BAS METB)on Anion gap [Moles/Vol] 10.2 mmol/L Normal [facility] Comment on above: Performed By: #### B MP #### [facility] [address] [address] [address] Soo Donnelly Calcium [Mass/Vol] 8.7 mg/dL Normal 8.5-10.1 [facility] Comment on above: Performed By: #### B MP #### [facility] [address] [address] [address] Soo Donnelly Chloride [Moles/Vol] 103 mmol/L Normal 98-107 [facility] Comment on above: Performed By: #### B MP #### [facility] [address] [place] [address] Dr. Soo Donnelly CO2 [Moles/Vol] 27.9 mmol/L Normal 21.0-32.0 [facility] Comment on above: Performed By: #### B MP #### [facility] [address] [address] [address] Soo Donnelly Creatinine [Mass/Vol] 0.80 mg/dL Normal 0.55-1.02 [facility] Comment on above: Performed By: #### B MP #### [facility] [address] [address] [address] Soo Donnelly EGFR-AF DANISH >60 Normal >=60 [facility] Comment on above: Performed By: #### B MP #### [facility] [address] [address] [address] Soo Donnelly EGFR-NON AF DANISH >60 Normal >=60 [facility] Comment on above: Performed By: #### B MP #### [facility] [address] [address] [address] Soo Donnelly Glucose [Mass/Vol] 103 mg/dL Normal 74-106 [facility] Comment on above: Performed By: #### B MP #### [facility] [address] [address] [address] Soo Donnelly Potassium [Moles/Vol] 4.1 mmol/L Normal 3.5-5.1 [facility] Comment on above: Performed By: #### B MP #### [facility] [address] [address] [address] Soo Donnelly Sodium [Moles/Vol] 137 mmol/L Normal 136-145 [facility] Comment on above: Performed By: #### B MP #### [facility] [address] [address] [address] Soo Donnelly Urea nitrogen [Mass/Vol] 11.0 mg/dL Normal 7.0-18.0 [facility] Comment on above: Performed By: #### B MP #### [facility] [address] [address] [address] Soo Donnelly Urea nitrogen/Creatinine [Mass ratio] 13.8 mg/mg Normal [facility] Comment on above: Performed By: #### B MP #### [facility] [address] [address] [address] Soo Donnelly XR KUB 1 VIEWon [...] LUZ ELENA SAUCEDA Date: 2022-09-18 12:12 Normal [facility] MG MAMM SCREEN 3D DEAN CADon 09-12-2022 MG MAMM SCREEN 3D DEAN CAD Patient: HORACIO KEATING Exam Date: 09/12/2022 : 1975 Gender:F Ordering : DR AURA MURILLO . Admission #: [id number] Family : Order #: [id number] CLICK HERE TO VIEW EXAM RADIOLOGY REPORT PROCEDURE: MAMMOGRAM SCREENING 3D BILATERAL CAD COMPARISON: MG MAMM SCREEN 3D DEAN CAD, 07/26/2021. INDICATIONS: Screening mammography Calculator Name NCI Breast Cancer Risk Assessment Tool 5 Year Breast Cancer Risk 1.50% Lifetime Breast Cancer Risk 13.60% Personal Breast Cancer No Personal Ovarian Cancer No Treatments None Family Cancers Grandmother-maternal with breast cancer at age 64; Grandmother-paternal with ovarian cancer at age 76. LOCATION: [facility] BREAST COMPOSITION: Scattered areas fibroglandular density. FINDINGS: [...] Sheehan MD on 09/13/2022 at 07:46 Normal [facility] INSULINon 07-20-2022 Insulin 25.5 uIU/mL Critically high 2.6-24.9 [facility] Comment on above: Performed By: #### U LG, CRP #### [facility] [address] [place] [address] Dr. Soo Donnelly T4 [facility]ORPon 07-20-2022 T4 [Mass/Vol] 7.4 ug/dL Normal 4.5-12.0 [facility] Comment on above: Performed By: #### A NAD #### [facility] [address] [place] [address] Dr. Soo Donnelly CBC W MANUAL DIFFon 07-19-20 22 ATYPICAL LYMPH # Normal [facility] Comment on above: Performed By: #### B UN, CREA #### [facility] [address] [place] [address] Dr. Soo Donnelly ATYPICAL LYMPH % Normal [facility] Comment on above: Performed By: #### B UN, CREA #### [facility] [address] [place] [address] Dr. Soo Donnelly BAND # Normal 0.0-0.3 [facility] Comment on above: Performed By: #### B UN, CREA #### [facility] [address] [place] [address] Dr. Soo Donnelly BAND % Normal 0-5 [facility] Comment on above: Performed By: #### B UN, CREA #### [facility] [address] [place] [address] Dr. Soo Donnelly BASOM # 0.00 103/ul Normal 0.00-0.10 [facility] Comment on above: Performed By: #### B UN, CREA #### [facility] [address] [place] [address] Dr. Soo Donnelly BASOM % 0.0 % Critically low 0.2-2.0 [facility] Comment on above: Performed By: #### B UN, CREA #### [facility] [address] [place] [address] Dr. Soo Donnelly BLAST # Normal [facility] Comment on above: Performed By: #### B UN, CREA #### [facility] [address] [place] [address] Dr. Soo Donnelly BLAST % Normal [facility] Comment on above: Performed By: #### B UN, CREA #### [facility] [address] [place] [address] Dr. Soo Donnelly CORRECTED WBC Normal 4.0-11.0 [facility] Comment on above: Performed By: #### B UN, CREA #### [facility] [address] [place] [address] Dr. Soo Donnelly EOS # 0.31 103/ul Normal 0.00-0.70 [facility] Comment on above: Performed By: #### B UN, CREA #### [facility] [address] [place] [address] Dr. Soo Donnelly EOS% 2.0 % Normal 0.9-7.0 [facility] Comment on above: Performed By: #### B UN, CREA #### [facility] [address] [place] [address] Dr. Soo Donnelly HCT 41.6 % Normal 36.0-48.0 [facility] Comment on above: Performed By: #### B UN, CREA #### [facility] [address] [place] [address] Dr. Soo Donnelly HGB 13.8 g/dl Normal 12.0-16.0 [facility] Comment on above: Performed By: #### B UN, CREA #### [facility] [address] [place] [address] Dr. Soo Donnelly LYMPHM # 5.27 103/ul Critically high 1.20-3.80 [facility] Comment on above: Performed By: #### B UN, CREA #### [facility] [address] [place] [address] Dr. Soo Donnelly LYMPHM% 34.0 % Normal 20.5-60.0 [facility] Comment on above: Performed By: #### B UN, CREA #### [facility] [address] [place] [address] Dr. Soo Donnelly MCH 31.5 pg Normal 26.7-34.0 [facility] Comment on above: Performed By: #### B UN, CREA #### [facility] [address] [place] [address] Dr. Soo Donnelly MCHC 33.2 g/dl Normal 29.9-35.2 [facility] Comment on above: Performed By: #### B UN, CREA #### [facility] [address] [place] [address] Dr. Soo Donnelly MCV 95.0 fL Normal 81.0-99.0 [facility] Comment on above: Performed By: #### B UN, CREA #### [facility] [address] [place] [address] Dr. Soo Donnelly METAMYELOCYTE # Normal [facility] Comment on above: Performed By: #### B UN, CREA #### [facility] [address] [place] [address] Dr. Soo Donnelly METAMYELOCYTE % Normal [facility] Comment on above: Performed By: #### B UN, CREA #### [facility] [address] [place] [address] Dr. Soo Donnelly MONOM# 0.93 103/ul Critically high 0.30-0.80 [facility] Comment on above: Performed By: #### B UN, CREA #### [facility] [address] [place] [address] Dr. Soo Donnelly MONOM% 6.0 % Normal 1.7-12.0 [facility] Comment on above: Performed By: #### B UN, CREA #### [facility] [address] [place] [address] Dr. Soo Donnelly MPV 10.1 fL Normal 9.5-13.5 [facility] Comment on above: Performed By: #### B UN, CREA #### [facility] [address] [place] [address] Dr. Soo Donnelly MYELOCYTE # Normal [facility] Comment on above: Performed By: #### B UN, CREA #### [facility] [address] [place] [address] Dr. Soo Donnelly MYELOCYTE % Normal [facility] Comment on above: Performed By: #### B UN, CREA #### [facility] [address] [place] [address] Dr. Soo Donnelly NRBC Normal [facility] Comment on above: Performed By: #### B UN, CREA #### [facility] [address] [place] [address] Dr. Soo Donnelly PLT 260 103/ul Normal 150-450 [facility] Comment on above: Performed By: #### B UN, CREA #### [facility] [address] [place] [address] Dr. Soo Donnelly RBC 4.38 106/ul Normal 4.20-5.40 [facility] Comment on above: Performed By: #### B UN, CREA #### [facility] [address] [place] [address] Dr. Soo Donnelly RDW 12.5 % Normal 11.0-15.0 [facility] Comment on above: Performed By: #### B UN, CREA #### [facility] [address] [address] [address] Soo Donnelly SEG # 8.99 103/ul Critically high 1.40-6.50 [facility] Comment on above: Performed By: #### B UN, CREA #### [facility] [address] [address] [address] Soo Donnelly SEG % 58.0 % Normal 43.0-75.0 [facility] Comment on above: Performed By: #### B UN, CREA #### [facility] [address] [address] [address] Soo Donnelly WBC 15.5 103/ul Critically high 4.0-11.0 [facility] Comment on above: Performed By: #### B UN, CREA #### [facility] [address] [place] [address] Dr. Soo Donnelly FREE T3on 07-19-2022 FREE T3 2.62 pg/mlL Normal 2.18-3.98 [facility] Comment on above: Performed By: #### U LG, CRP #### [facility] [address] [address] [address] Soo Donnelly GLYCOHEMOGLOBIN A1Con 2021 ADA RECOMMENDATION SEE BELOW Normal [facility] Comment on above: Result Comment: ADA RECOMMENDED LIMIT 4.0 - 6.0 ADA THERAPEUTIC TARGET < 7.0 ACTION SUGGESTED > 7.0 Performed By: #### U LG, CRP #### [facility] [address] [place] [address] Dr. Soo Donnelly Glucose [Mass/Vol] 137 mg/dL Normal [facility] Comment on above: Performed By: #### U LG, CRP #### [facility] [address] [place] [address] Dr. Soo Donnelly HbA1c (Bld) [Mass fraction] 6.4 % Critically high 4.5-6.2 [facility] Comment on above: Performed By: #### U LG, CRP #### [facility] [address] [place] [address] Dr. Soo Donnelly LIPID PROFILEon 07-19-2022 CHOL-HDL RATIO NORM SEE BELOW Normal [facility] Comment on above: Result Comment: 3.3 - 4.4 LOW RISK 4.4 - 7.1 AVERAGE RISK 7.1 - 11.0 MODERATE RISK >11.0 HIGH RISK Performed By: #### U LG, CRP #### [facility] [address] [address] [address] Soo Donnelly Cholesterol [Mass/Vol] 226 mg/dL Critically high <=200 [facility] Comment on above: Performed By: #### U LG, CRP #### [facility] [address] [address] [address] Soo Donnelly Cholesterol in HDL [Mass/Vol] 33 mg/dL Critically low 40-60 [facility] Comment on above: Performed By: #### U LG, CRP #### [facility] [address] [address] [address] Soo Donnelly Cholesterol in LDL [Mass/Vol] 135.2 mg/dL Normal [facility] Comment on above: Performed By: #### U LG, CRP #### [facility] [address] [address] [address] Soo Donnelly Cholesterol.total/Mirta sterol in HDL [Mass ratio] 6.8 {ratio} Normal [facility] Comment on above: Performed By: #### U LG, CRP #### [facility] [address] [address] [address] Soo Donnelly HDL NORMAL > or = 60 mg/dl - LO W CARDIOVASCULAR RISK <40 mg/dl - HIGH CARDIOVASCULAR RISK Normal [facility] Comment on above: Performed By: #### U LG, CRP #### [facility] [address] [address] [address] Soo Donnelly LDL CALC NORMAL SEE BELOW Normal [facility] Comment on above: Result Comment: <100 mg/dl OPTIMAL 100 - 129 mg/dl NEAR OR ABOVE OPTIMAL 130 - 159 mg/dl BORDERLINE HIGH 160 - 189 mg/dl HIGH >190 mg/dl VERY HIGH Performed By: #### U LG, CRP #### [facility] [address] [place] [address] Dr. Soo Donnelly Triglyceride [Mass/Vol] 289 mg/dL Critically high <=150 [facility] Comment on above: Performed By: #### U LG, CRP #### [facility] [address] [place] [address] Dr. Soo Donnelly VLDL CALC 57.8 mg/dL Normal [facility] Comment on above: Performed By: #### U LG, CRP #### [facility] [address] [address] [address] Soo Donnelly PROF 14(COMP METB)on 022 Albumin [Mass/Vol] 3.2 g/dL Critically low 3.4-5.0 [facility] Comment on above: Performed By: #### U LG, CRP #### [facility] [address] [place] [address] Dr. Soo Donnelly Albumin/Globulin [Mass ratio] 1.1 {ratio} Normal [facility] Comment on above: Performed By: #### U LG, CRP #### [facility] [address] [place] [address] Dr. Soo Donnelly ALP [Catalytic activity/Vol] 41 U/L Critically low 46-116 [facility] Comment on above: Performed By: #### U LG, CRP #### [facility] [address] [place] [address] Dr. Soo Donnelly ALT [Catalytic activity/Vol] 46 U/L Normal 14-59 [facility] Comment on above: Performed By: #### U LG, CRP #### [facility] [address] [place] [address] Dr. Soo Donnelly Anion gap [Moles/Vol] 9.3 mmol/L Normal [facility] Comment on above: Performed By: #### U LG, CRP #### [facility] [address] [place] [address] Dr. Soo Donnelly AST [Catalytic activity/Vol] 18 U/L Normal 15-37 [facility] Comment on above: Performed By: #### U LG, CRP #### [facility] [address] [place], [place] [id number] Dr. Soo Donnelly Bilirubin [Mass/Vol] 0.7 mg/dL Normal 0.2-1.0 [facility] Comment on above: Performed By: #### U LG, CRP #### [facility] [address] [place] [address] Dr. Soo Donnelly Calcium [Mass/Vol] 8.1 mg/dL Critically low 8.5-10.1 [facility] Comment on above: Performed By: #### U LG, CRP #### [facility] [address] [place] [address] Dr. Soo Donnelly Chloride [Moles/Vol] 101 mmol/L Normal 98-107 [facility] Comment on above: Performed By: #### U LG, CRP #### [facility] [address] [place] [address] Dr. Soo Donnelly CO2 [Moles/Vol] 31.1 mmol/L Normal 21.0-32.0 [facility] Comment on above: Performed By: #### U LG, CRP #### [facility] [address] [place] [address] Dr. Soo Donnelly Creatinine [Mass/Vol] 0.77 mg/dL Normal 0.55-1.02 [facility] Comment on above: Performed By: #### U LG, CRP #### [facility] [address] [place] [address] Dr. Soo Donnelly EGFR-AF DANISH >60 Normal >=60 [facility] Comment on above: Performed By: #### U LG, CRP #### [facility] [address] [place] [address] Dr. Soo Donnelly EGFR-NON AF DANISH >60 Normal >=60 [facility] Comment on above: Performed By: #### U LG, CRP #### [facility] [address] [place] [address] Dr. Soo Donnelly Globulin (S) [Mass/Vol] 3.0 g/dL Normal [facility] Comment on above: Performed By: #### U LG, CRP #### [facility] [address] [place] [address] Dr. Soo Donnelly Glucose [Mass/Vol] 104 mg/dL Normal 74-106 [facility] Comment on above: Performed By: #### U LG, CRP #### [facility] [address] [address] [address] Soo Donnelly Potassium [Moles/Vol] 3.4 mmol/L Critically low 3.5-5.1 [facility] Comment on above: Performed By: #### U LG, CRP #### [facility] [address] [place] [address] Dr. Soo Donnelly Protein [Mass/Vol] 6.2 g/dL Critically low 6.4-8.2 [facility] Comment on above: Performed By: #### U LG, CRP #### [facility] [address] [place] [address] Dr. Soo Donnelly Sodium [Moles/Vol] 138 mmol/L Normal 136-145 [facility] Comment on above: Performed By: #### U LG, CRP #### [facility] [address] [place] [address] Dr. Soo Donnelly Urea nitrogen [Mass/Vol] 16.0 mg/dL Normal 7.0-18.0 [facility] Comment on above: Performed By: #### U LG, CRP #### [facility] [address] [place] [address] Dr. Soo Donnelly Urea nitrogen/Creatinine [Mass ratio] 20.8 mg/mg Normal [facility] Comment on above: Performed By: #### U LG, CRP #### [facility] [address] [place] [address] Dr. Soo Donnelly TSHon 07-19-2022 TSH 3.262 uIU/mL Normal 0.358-3.740 [facility] Comment on above: Performed By: #### U LG, CRP #### [facility] [address] [place] [address] Dr. Soo Donnelly CBC AUTO DIFFon 05-18-2022 BASO # 0.0 103/ul Normal 0.0-0.1 [facility] Comment on above: Performed By: #### U LG, CRP #### [facility] [address] [address] [address] Soo Donnelly Basophils/100 WBC (Bld) 0.2 % Normal 0.2-2.0 [facility] Comment on above: Performed By: #### U LG, CRP #### [facility] [address] [place] [address] Dr. Soo Donnelly EO # 0.0 103/ul Normal 0.0-0.7 [facility] Comment on above: Performed By: #### U LG, CRP #### [facility] [address] [place] [address] Dr. Soo Donnelly Eosinophils/100 WBC (Bld) 0.2 % Critically low 0.9-7.0 [facility] Comment on above: Performed By: #### U LG, CRP #### [facility] [address] [place] [address] Dr. Soo Donnelly Erythrocyte distribution width (RBC) [Ratio] 12.8 % Normal 11.0-15.0 [facility] Comment on above: Performed By: #### U LG, CRP #### [facility] [address] [place] [address] Dr. Soo Donnelly Hematocrit (Bld) [Volume fraction] 35.7 % Critically low 36.0-48.0 [facility] Comment on above: Performed By: #### U LG, CRP #### [facility] [address] [place] [address] Dr. Soo Donnelly Hemoglobin (Bld) [Mass/Vol] 11.5 g/dL Critically low 12.0-16.0 [facility] Comment on above: Performed By: #### U LG, CRP #### [facility] [address] [place] [address] Dr. Soo Donnelly IG # 0.07 10e3/ul Critically high 0.00-0.03 [facility] Comment on above: Performed By: #### U LG, CRP #### [facility] [address] [place] [address] Dr. oSo Donnelly IG % 0.5 % Normal 0.0-0.5 [facility] Comment on above: Performed By: #### U LG, CRP #### [facility] [address] [address] [address] Soo Donnelly LYMPH # 4.1 103/ul Critically high 1.2-3.8 [facility] Comment on above: Performed By: #### U LG, CRP #### [facility] [address] [address] [address] Soo Donnelly Lymphocytes/100 WBC (Bld) 28.3 % Normal 20.5-60.0 [facility] Comment on above: Performed By: #### U LG, CRP #### [facility] [address] [place] [address] Dr. Soo Donnelly MANUAL DIFF REQ NO Normal [facility] Comment on above: Performed By: #### U LG, CRP #### [facility] [address] [place] [address] Dr. Soo Donnelly MCH (RBC) [Entitic mass] 31.7 pg Normal 26.7-34.0 [facility] Comment on above: Performed By: #### U LG, CRP #### [facility] [address] [place] [address] Dr. Soo Donnelly MCHC (RBC) [Mass/Vol] 32.2 g/dL Normal 29.9-35.2 [facility] Comment on above: Performed By: #### U LG, CRP #### [facility] [address] [place] [address] Dr. Soo Donnelly MCV (RBC) [Entitic vol] 98.3 fL Normal 81.0-99.0 [facility] Comment on above: Performed By: #### U LG, CRP #### [facility] [address] [place] [address] Dr. Soo Donnelly MONO # 0.8 103/ul Normal 0.3-0.8 [facility] Comment on above: Performed By: #### U LG, CRP #### [facility] [address] [place] [address] Dr. Soo Donnelly Monocytes/100 WBC (Bld) 5.6 % Normal 1.7-12.0 [facility] Comment on above: Performed By: #### U LG, CRP #### [facility] [address] [address] [address] Soo Donnelly NEUT # 9.4 103/ul Critically high 1.4-6.5 [facility] Comment on above: Performed By: #### U LG, CRP #### [facility] [address] [address] [address] Soo Donnelly Neutrophils/100 WBC (Bld) 65.2 % Normal 43.0-75.0 [facility] Comment on above: Performed By: #### U LG, CRP #### [facility] [address] [place] [address] Dr. Soo Donnelly Platelet mean volume (Bld) [Entitic vol] 10.8 fL Normal 9.5-13.5 [facility] Comment on above: Performed By: #### U LG, CRP #### [facility] [address] [place] [address] Dr. Soo Donnelly PLT 191 103/ul Normal 150-450 [facility] Comment on above: Performed By: #### U LG, CRP #### [facility] [address] [place] [address] Dr. Soo Donnelly RBC 3.63 106/ul Critically low 4.20-5.40 [facility] Comment on above: Performed By: #### U LG, CRP #### [facility] [address] [place] [address] Dr. Soo Donnelly WBC 14.4 103/ul Critically high 4.0-11.0 [facility] Comment on above: Performed By: #### U LG, CRP #### [facility] [address] [place] [address] Dr. Soo Burdick 05-17-2022 Urea nitrogen [Mass/Vol] 8.0 mg/dL Normal 7.0-18.0 [facility] Comment on above: Performed By: #### B UN, CREA #### [facility] [address] [place] [address] Dr. Soo Donnelly CBC AUTO DIFFon 05-17-2022 BASO # 0.0 103/ul Normal 0.0-0.1 [facility] Comment on above: Performed By: #### U LG, CRP #### [facility] [address] [address] [address] Soo Donnelly BASO # 0.0 103/ul Normal 0.0-0.1 [facility] Comment on above: Performed By: #### U LG, CRP #### [facility] [address] [address] [address] Soo Donnelly Basophils/100 WBC (Bld) 0.1 % Critically low 0.2-2.0 [facility] Comment on above: Performed By: #### U LG, CRP #### [facility] [address] [address] [address] Soo Donnelly Basophils/100 WBC (Bld) 0.1 % Critically low 0.2-2.0 [facility] Comment on above: Performed By: #### U LG, CRP #### [facility] [address] [address] [address] Soo Donnelly EO # 0.0 103/ul Normal 0.0-0.7 [facility] Comment on above: Performed By: #### U LG, CRP #### [facility] [address] [address] [address] Soo Donnelly EO # 0.0 103/ul Normal 0.0-0.7 [facility] Comment on above: Performed By: #### U LG, CRP #### [facility] [address] [address] [address] Soo Donnelly Eosinophils/100 WBC (Bld) 0.0 % Critically low 0.9-7.0 [facility] Comment on above: Performed By: #### U LG, CRP #### [facility] [address] [address] [address] Soo Donnelly Eosinophils/100 WBC (Bld) 0.0 % Critically low 0.9-7.0 [facility] Comment on above: Performed By: #### U LG, CRP #### [facility] [address] [address] [address] Soo Donnelly Erythrocyte distribution width (RBC) [Ratio] 12.3 % Normal 11.0-15.0 [facility] Comment on above: Performed By: #### U LG, CRP #### [facility] [address] [place] [address] Dr. Soo Donnelly Erythrocyte distribution width (RBC) [Ratio] 12.5 % Normal 11.0-15.0 [facility] Comment on above: Performed By: #### U LG, CRP #### [facility] [address] [place] [address] Dr. Soo Donnelly Hematocrit (Bld) [Volume fraction] 41.2 % Normal 36.0-48.0 [facility] Comment on above: Performed By: #### U LG, CRP #### [facility] [address] [place] [address] Dr. Soo Donnelly Hematocrit (Bld) [Volume fraction] 38.5 % Normal 36.0-48.0 [facility] Comment on above: Performed By: #### U LG, CRP #### [facility] [address] [place] [address] Dr. Soo Donnelly Hemoglobin (Bld) [Mass/Vol] 13.5 g/dL Normal 12.0-16.0 [facility] Comment on above: Performed By: #### U LG, CRP #### [facility] [address] [place] [address] Dr. Soo Donnelly Hemoglobin (Bld) [Mass/Vol] 13.0 g/dL Normal 12.0-16.0 [facility] Comment on above: Performed By: #### U LG, CRP #### [facility] [address] [place] [address] Dr. Soo Donnelly IG # 0.11 10e3/ul Critically high 0.00-0.03 [facility] Comment on above: Performed By: #### U LG, CRP #### [facility] [address] [place] [address] Dr. Soo Donnelly IG # 0.16 10e3/ul Critically high 0.00-0.03 [facility] Comment on above: Performed By: #### U LG, CRP #### [facility] [address] [place] [address] Dr. Soo Donnelly IG % 0.5 % Normal 0.0-0.5 [facility] Comment on above: Performed By: #### U LG, CRP #### [facility] [address] [address] [address] Soo Donnelly IG % 0.7 % Critically high 0.0-0.5 [facility] Comment on above: Performed By: #### U LG, CRP #### [facility] [address] [place] [address] Dr. Soo Donnelly LYMPH # 1.6 103/ul Normal 1.2-3.8 [facility] Comment on above: Performed By: #### U LG, CRP #### [facility] [address] [place] [address] Dr. Soo Donnelly LYMPH # 3.0 103/ul Normal 1.2-3.8 [facility] Comment on above: Performed By: #### U LG, CRP #### [facility] [address] [place] [address] Dr. Soo Donnelly Lymphocytes/100 WBC (Bld) 7.8 % Critically low 20.5-60.0 [facility] Comment on above: Performed By: #### U LG, CRP #### [facility] [address] [place] [address] Dr. Soo Donnelly Lymphocytes/100 WBC (Bld) 12.2 % Critically low 20.5-60.0 [facility] Comment on above: Performed By: #### U LG, CRP #### [facility] [address] [place] [address] Dr. Soo Donnelly MANUAL DIFF REQ NO Normal [facility] Comment on above: Performed By: #### U LG, CRP #### [facility] [address] [place] [address] Dr. Soo Donnelly MANUAL DIFF REQ NO Normal [facility] Comment on above: Performed By: #### U LG, CRP #### [facility] [address] [place] [address] Dr. Soo Donnelly MCH (RBC) [Entitic mass] 31.8 pg Normal 26.7-34.0 [facility] Comment on above: Performed By: #### U LG, CRP #### [facility] [address] [place] [address] Dr. Soo Donnelly MCH (RBC) [Entitic mass] 32.4 pg Normal 26.7-34.0 [facility] Comment on above: Performed By: #### U LG, CRP #### [facility] [address] [place] [address] Dr. Soo Donnelly MCHC (RBC) [Mass/Vol] 32.8 g/dL Normal 29.9-35.2 [facility] Comment on above: Performed By: #### U LG, CRP #### [facility] [address] [place] [address] Dr. Soo OSUNAC (RBC) [Mass/Vol] 33.8 g/dL Normal 29.9-35.2 [facility] Comment on above: Performed By: #### U LG, CRP #### [facility] [address] [place] [address] Dr. Soo Donnelly MCV (RBC) [Entitic vol] 96.9 fL Normal 81.0-99.0 [facility] Comment on above: Performed By: #### U LG, CRP #### [facility] [address] [place] [address] Dr. Soo Donnelly MCV (RBC) [Entitic vol] 96.0 fL Normal 81.0-99.0 [facility] Comment on above: Performed By: #### U LG, CRP #### [facility] [address] [place] [address] Dr. Soo Donnelly MONO # 0.4 103/ul Normal 0.3-0.8 [facility] Comment on above: Performed By: #### U LG, CRP #### [facility] [address] [place] [address] Dr. Soo Donnelly MONO # 1.3 103/ul Critically high 0.3-0.8 [facility] Comment on above: Performed By: #### U LG, CRP #### [facility] [address] [address] [address] Soo Donnelly Monocytes/100 WBC (Bld) 2.0 % Normal 1.7-12.0 [facility] Comment on above: Performed By: #### U LG, CRP #### [facility] [address] [address] [address] Soo Donnelly Monocytes/100 WBC (Bld) 5.4 % Normal 1.7-12.0 [facility] Comment on above: Performed By: #### U LG, CRP #### [facility] [address] [address] [address] Soo Donnelly NEUT # 18.1 103/ul Critically high 1.4-6.5 [facility] Comment on above: Performed By: #### U LG, CRP #### [facility] [address] [address] [address] Soo Donnelly NEUT # 19.8 103/ul Critically high 1.4-6.5 [facility] Comment on above: Performed By: #### U LG, CRP #### [facility] [address] [address] [address] Soo Donnelly Neutrophils/100 WBC (Bld) 89.6 % Critically high 43.0-75.0 [facility] Comment on above: Performed By: #### U LG, CRP #### [facility] [address] [address] [address] Soo Donnelly Neutrophils/100 WBC (Bld) 81.6 % Critically high 43.0-75.0 [facility] Comment on above: Performed By: #### U LG, CRP #### [facility] [address] [address] [address] Soo Donnelly Platelet mean volume (Bld) [Entitic vol] 11.0 fL Normal 9.5-13.5 [facility] Comment on above: Performed By: #### U LG, CRP #### [facility] [address] [address] [address] Soo Donnelly Platelet mean volume (Bld) [Entitic vol] 10.5 fL Normal 9.5-13.5 [facility] Comment on above: Performed By: #### U LG, CRP #### [facility] [address] [address] [address] Soo Donnelly PLT 223 103/ul Normal 150-450 [facility] Comment on above: Performed By: #### U LG, CRP #### [facility] [address] [place] [address] Dr. Soo Donnelly PLT 253 103/ul Normal 150-450 [facility] Comment on above: Performed By: #### U LG, CRP #### [facility] [address] [place] [address] Dr. Soo Donnelly RBC 4.25 106/ul Normal 4.20-5.40 [facility] Comment on above: Performed By: #### U LG, CRP #### [facility] [address] [place] [address] Dr. Soo Donnelly RBC 4.01 106/ul Critically low 4.20-5.40 [facility] Comment on above: Performed By: #### U LG, CRP #### [facility] [address] [place] [address] Dr. Soo Donnelly WBC 20.2 103/ul Critically high 4.0-11.0 [facility] Comment on above: Performed By: #### U LG, CRP #### [facility] [address] [place] [address] Dr. Soo Donnelly WBC 24.3 103/ul Critically high 4.0-11.0 [facility] Comment on above: Performed By: #### U LG, CRP #### [facility] [address] [place] [address] Dr. Soo Donnelly CREATININEon 05-17-2022 Creatinine [Mass/Vol] 0.97 mg/dL Normal 0.55-1.02 [facility] Comment on above: Performed By: #### B UN, CREA #### [facility] [address] [address] [address] Soo Donnelly EGFR-AF DANISH >60 Normal >=60 [facility] Comment on above: Performed By: #### B JOANNA, CREA #### [facility] [address] [address] [address] Soo Donnelly EGFR-NON AF DANISH >60 Normal >=60 [facility] Comment on above: Performed By: #### B JOANNA, CREA #### [facility] [address] [address] [address] Soo Donnelly CTA CHEST WO W [...] LUZ ELENA SAUCEDA Date: 2022-05-17 16:40 Normal [facility] XR CHEST 2 Von 05-17-2022 XR [...] by: SAMI JONES Date: 2022-05-17 16:10 Normal [facility] CBC AUTO DIFFon 05-16-2022 BASO # 0.1 103/ul Normal 0.0-0.1 [facility] Comment on above: Performed By: #### B UN, CREA #### [facility] [address] [place] [address] Dr. Soo Donenlly Basophils/100 WBC (Bld) 0.5 % Normal 0.2-2.0 [facility] Comment on above: Performed By: #### B UN, CREA #### [facility] [address] [place] [address] Dr. Soo Donnelly EO # 0.1 103/ul Normal 0.0-0.7 [facility] Comment on above: Performed By: #### B UN, CREA #### [facility] [address] [place] [address] Dr. Soo Donnelly Eosinophils/100 WBC (Bld) 1.0 % Normal 0.9-7.0 [facility] Comment on above: Performed By: #### B UN, CREA #### [facility] [address] [place] [address] Dr. Soo Donnelly Erythrocyte distribution width (RBC) [Ratio] 12.2 % Normal 11.0-15.0 [facility] Comment on above: Performed By: #### B UN, CREA #### [facility] [address] [place] [address] Dr. Soo Donnelly Hematocrit (Bld) [Volume fraction] 41.2 % Normal 36.0-48.0 [facility] Comment on above: Performed By: #### B UN, CREA #### [facility] [address] [place] [address] Dr. Soo Donnelly Hemoglobin (Bld) [Mass/Vol] 13.9 g/dL Normal 12.0-16.0 [facility] Comment on above: Performed By: #### B UN, CREA #### [facility] [address] [address] [address] Soo Donnelly IG # 0.04 10e3/ul Critically high 0.00-0.03 [facility] Comment on above: Performed By: #### B UN, CREA #### [facility] [address] [address] [address] Soo Donnelly IG % 0.4 % Normal 0.0-0.5 [facility] Comment on above: Performed By: #### B UN, CREA #### [facility] [address] [place] [address] Dr. Soo Donnelly LYMPH # 3.5 103/ul Normal 1.2-3.8 [facility] Comment on above: Performed By: #### B UN, CREA #### [facility] [address] [place] [address] Dr. Soo Donnelly Lymphocytes/100 WBC (Bld) 35.3 % Normal 20.5-60.0 [facility] Comment on above: Performed By: #### B UN, CREA #### [facility] [address] [place] [address] Dr. Soo Donnelly MANUAL DIFF REQ NO Normal [facility] Comment on above: Performed By: #### B UN, CREA #### [facility] [address] [place] [address] Dr. Soo Donnelly MCH (RBC) [Entitic mass] 31.7 pg Normal 26.7-34.0 [facility] Comment on above: Performed By: #### B UN, CREA #### [facility] [address] [place] [address] Dr. Soo Donnelly MCHC (RBC) [Mass/Vol] 33.7 g/dL Normal 29.9-35.2 [facility] Comment on above: Performed By: #### B UN, CREA #### [facility] [address] [place] [address] Dr. Soo Donnelly MCV (RBC) [Entitic vol] 94.1 fL Normal 81.0-99.0 [facility] Comment on above: Performed By: #### B UN, CREA #### [facility] [address] [place] [address] Dr. Soo Donnelly MONO # 0.5 103/ul Normal 0.3-0.8 [facility] Comment on above: Performed By: #### B UN, CREA #### [facility] [address] [place] [address] Dr. Soo Donnelly Monocytes/100 WBC (Bld) 5.4 % Normal 1.7-12.0 [facility] Comment on above: Performed By: #### B UN, CREA #### [facility] [address] [place] [address] Dr. Soo Donnelly NEUT # 5.6 103/ul Normal 1.4-6.5 [facility] Comment on above: Performed By: #### B UN, CREA #### [facility] [address] [place] [address] Dr. Soo Donnelly Neutrophils/100 WBC (Bld) 57.4 % Normal 43.0-75.0 [facility] Comment on above: Performed By: #### B UN, CREA #### [facility] [address] [place] [address] Dr. Soo Donnelly Platelet mean volume (Bld) [Entitic vol] 10.3 fL Normal 9.5-13.5 [facility] Comment on above: Performed By: #### B UN, CREA #### [facility] [address] [place] [address] Dr. Soo Donnelly PLT 235 103/ul Normal 150-450 [facility] Comment on above: Performed By: #### B UN, CREA #### [facility] [address] [place] [address] Dr. Soo Donnelly RBC 4.38 106/ul Normal 4.20-5.40 [facility] Comment on above: Performed By: #### B UN, CREA #### [facility] [address] [place] [address] Dr. Soo Donnelly WBC 9.8 103/ul Normal 4.0-11.0 [facility] Comment on above: Performed By: #### B UN, CREA #### [facility] [address] [address] [address] Soo Donnelly PREG QUANT HCGon 05-16-2022 HCG QUANT <1 Normal [facility] Comment on above: Performed By: #### U LG, CRP #### [facility] [address] [address] [address] Soo Donnelly HCG RANGE SEE BELOW Normal [facility] Comment on above: Result Comment: 5-50 0-1 WEEK 40-300 1-2 WEEKS 100-1,000 2-3 WEEKS 500-6,000 3-4 WEEKS 5,000-200,000 1-2 MONTHS 10,000-100,000 2-3 MONTHS 3,000-50,000 2ND TRIMESTER 1,000-50,000 3RD TRIMESTER Performed By: #### U LG, CRP #### [facility] [address] [address] [address] Soo Donnelly Covid-19 PCR (CVDTBH)on 05-01 SARS-CoV-2 (COVID-19) RNA NOLA+probe Ql (Unsp spec) Not detected Normal NOT DETECTED [facility] Comment on above: Result Comment: This test is not yet approved or cleared by the [place] FDA. When there are no FDA-approved or cleared tests available, and other criteria are met, FDA can make tests available under an emergency access mechanism called an Emergency Use Authorization (EUA). The EUA for this test is supported by the Freedom of Health and Human Service's (HHS's) declaration [...] SARS-CoV-2. Performed By: #### C VDTBH #### [facility] [address] [address] [address] Soo Donnelly TYPE AND SCREENon 05-13-2022 TYPE AND SCREEN Negative Normal [facility] Comment on above: Performed By: #### B JOANNA, CRERavi #### [facility] [address] [address] [address] Soo Donnelly PAP ACOG PANEL 2: 30 to 65on 05-07-2022 . . Normal [facility] Comment on above: Result Comment: Perf ormed at: WB Performed By: #### [id number] #### [facility] [address] [place] [address] Dr. Soo Donnelly Age Gdln ACOG Testing -66 [facility] Comment on above: Performed By: #### [id number] #### [facility] [address] [place] [address] Dr. Soo Donnelly DIAGNOSIS: Comment Normal [facility] Comment on above: Result Comment: NEGA TIVE FOR INTRAEPITHELIAL LESION OR MALIGNANCY. Performed at: WB Performed By: #### [id number] #### [facility] [address] [place] [address] Dr. Soo Donnelly HPV Aptima Negative Normal [facility] Comment on above: Result Comment: This nucleic acid amplification test detects fourteen high-risk HPV types (16,18,31,33,35,39,45,51,52,56,58,59,66,68) without differentiation. Performed at: =G Performed By: #### [id number] #### [facility] [address] [place] [address] Dr. Soo Donnelly Methodology: Comment Normal [facility] Comment on above: Result Comment: This liquid based ThinPrep(R) pap test was screened with the use of an image guided system. Performed at: WB Performed By: #### [id number] #### [facility] [address] [place] [address] Dr. Soo Donnelly Note: Comment Normal [facility] Comment on above: Result Comment: The Pap smear is a screening test designed to aid in the detection of premalignant and malignant conditions of the uterine cervix. It is not a diagnostic procedure and should not be used as the sole means of detecting cervical cancer. Both false-positive and false-negative reports do occur. . Performed at: WB Performed By: #### [id number] #### [facility] [address] [place] [address] Dr. Soo Donnelly Performed by: Comment Normal [facility] Comment on above: Result Comment: Angel Rod, Ethylene Plant Helper (ASCP) Performed at: WB Performed By: #### [id number] #### [facility] [address] [place] [address] Dr. Soo Donnelly Specimen adequacy: Comment Normal [facility] Comment on above: Result Comment: Sati sfactory for evaluation. Endocervical and/or squamous metaplastic cells (endocervical component) are present. Performed at: WB Performed By: #### [id number] #### [facility] [address] [place] [address] Dr. Soo Donnelly ROSS by IFAon 02-21-2022 Antinuclear Antibodies, IFA Negative [facility] Comment on above: Result Comment: Nega tive <1:80 Borderline 1:80 Positive >1:80 ICAP nomenclature: AC-0 For more information about Hep-2 cell patterns use ANApatterns.org, the official website for the International Consensus on Antinuclear Antibody (ROSS) Patterns (ICAP). Performed By: #### U LG, CRP #### [facility] [address] [place] [address] Dr. Soo Donnelly ROSS DIRECTon 02-20-2022 ROSS Direct Negative Normal Negative [facility] Comment on above: Performed By: #### A NAD #### [facility] [address] [place] [address] Dr. Soo Donnelly ANTISTREPTOLYSIN O AB (ASO)o n 02-20-2022 Antistreptolysin O Ab 115.3 IU/mL Normal 0.0-200.0 Th [facility] Comment on above: Performed By: #### B UN, CREA #### [facility] [address] [place] [address] Dr. Soo Donnelly C3 and C4 COMPLEMENTon 02-20 Complement C3, Serum 137 mg/dL Normal 82-167 [facility] Comment on above: Performed By: #### U LG, CRP #### [facility] [address] [place] [address] Dr. Soo Donnelly Complement C4, Serum 23 mg/dL Normal 12-38 [facility] Comment on above: Performed By: #### U LG, CRP #### [facility] [address] [address] [address] Soo Donnelly SLE PROFILE Aon 02-20-2022 Anti-DNA (DS) Ab Qn <1 Normal 0-9 [facility] Comment on above: Result Comment: Nega tive <5 Equivocal 5 - 9 Positive >9 Performed By: #### S YARI #### [facility] [address] [place] [address] Dr. Soo Donnelly Antichromatin Antibodies <0.2 Normal 0.0-0.9 [facility] Comment on above: Performed By: #### S YARI #### [facility] [address] [place] [address] Dr. Soo Donnelly RA Latex Turbid. <10.0 Normal <14.0 [facility] Comment on above: Performed By: #### S YARI #### [facility] [address] [place] [address] Dr. Soo Donnelly COMMUNITY HEALTH PROGRAM COORDINATOR Antibodies <0.2 Normal 0.0-0.9 [facility] Comment on above: Performed By: #### S YARI #### [facility] [address] [place] [address] Dr. Soo Donnelly Sjogren's Anti-SS-A <0.2 Normal 0.0-0.9 [facility] Comment on above: Performed By: #### S YARI #### [facility] [address] [place] [address] Dr. Soo Donnelly Sjogrdaniela's Anti-SS-B <0.2 Normal 0.0-0.9 [facility] Comment on above: Performed By: #### S YARI #### [facility] [address] [address] [address] Soo Donnelly Spann Antibodies <0.2 Normal 0.0-0.9 [facility] Comment on above: Performed By: #### S YARI #### [facility] [address] [address] [address] Soo Donnelly CRPon 02-19-2022 CRP [Mass/Vol] mg/L Normal <=1.0 [facility] Comment on above: Performed By: #### U LG, CRP #### [facility] [address] [address] [address] Soo Donnelly URIC ACID SERUMon 02-19-2022 Urate [Mass/Vol] 4.7 mg/dL Normal 2.5-6.2 [facility] Comment on above: Performed By: #### U LG, CRP #### [facility] [address] [address] [address] Soo Donnelly XR CSPINE MIN 4 [...] ABIGAIL SHEEHAN Date: 2022-02-19 16:33 Normal [facility] XR HAND DEAN MIN 3Von 022 XR [...] ABIGAIL SHEEHAN Date: 2022-02-19 16:28 Normal [facility] ASYMPTOMATIC COVID-19 ANTIGE Non 12-04-2021 EUA Statement SEE BELOW Normal [facility] Comment on above: Result Comment: This test [...] sooner. Performed By: #### C VDAGA #### [facility] [address] [place] [address] Dr. Soo Donnelly SARS-CoV-2 (COVID-19) RNA NOLA+probe Ql (Unsp spec) Negative Normal NEGATIVE [facility] Comment on above: Result Comment: Nega tive results are presumptive. They do not preclude infection and should not be used as the sole basis for treatment decisions. Additional confirmatory testing by a molecular method should be considered. Performed By: #### C VDAGA #### [facility] [address] [place] [address] Dr. Soo Donnelly Covid-19 PCR (CVDTB)on SARS-CoV-2 (COVID-19) RNA NOLA+probe Ql (Unsp spec) Not detected Normal NOT DETECTED [facility] Comment on above: Result Comment: This test is not yet approved or cleared by the [place] FDA. When there are no FDA-approved or cleared tests available, and other criteria are met, FDA can make tests available under an emergency access mechanism called an Emergency Use Authorization (EUA). The EUA for this test is supported by the Freedom of Health and Human Service's (HHS's) declaration [...] Performed By: #### U LG, CRP #### [facility] [address] [place] [address] Dr. Soo Donnelly Social History Date Type Detail Facility Start: 11-01-2022 Tobacco smoking status Ex-smoker (finding) [facility] Start: 1975 Sex Assigned At Female [facility] Unknown if ever smoked [facility] Other Sex Assigned At [facility] Tobacco smoking status Former smokeless tobacco user, quit more than 30 days ago [facility] Vital Signs Date Time Vital Sign Value Performing Clinician Facility 11-01-2022 15:19-0500 Blood Pressure Location [facility] 11-01-2022 15:19-0500 Diastolic blood pressure 80 mm[Hg] [facility] 11-01-2022 15:19-0500 Heart rate 72 /min [facility] 11-01-2022 15:19-0500 Respiratory rate 16 /min [facility] 11-01-2022 15:19-0500 Systolic blood pressure 118 mm[Hg] [facility] 10-01-2022 16:30-0400 Body height 170.18 cm Clarice Scally Other [facility] Other 10-01-2022 16:30-0400 Body mass index (BMI) [Ratio] 32.84 kg/m2 Clarice Scally Other [facility] Other 10-01-2022 16:30-0400 Body weight 95.12 kg Clarice Scally Other [facility] Other 10-01-2022 16:30-0400 Diastolic blood pressure 82 mm[Hg] Clarice Scally Other [facility] Other 10-01-2022 16:30-0400 Respiratory rate 18 /min Clarice Scally Other [facility] Other 10-01-2022 16:30-0400 SaO2% (BldA) [Mass fraction] 97 % Clarice Scally Other [facility] Other 10-01-2022 16:30-0400 Systolic blood pressure 116 mm[Hg] Clarice Scally Other [facility] Other 08-28-2022 14:30-0400 Body height 170.18 cm Nahid Mccoy Other [facility] Other 08-28-2022 14:30-0400 Body mass index (BMI) [Ratio] 34.55 kg/m2 Nahid Mccoy Other [facility] Other 08-28-2022 14:30-0400 Body weight 100.06 kg Nahid Mccoy Other [facility] Other 08-28-2022 14:30-0400 Diastolic blood pressure 82 mm[Hg] Nahid Mccoy Other [facility] Other 08-28-2022 14:30-0400 Respiratory rate 18 /min Nahid Mccoy Other [facility] Other 08-28-2022 14:30-0400 SaO2% (BldA) [Mass fraction] 97 % Nahid Mccoy Other [facility] Other 08-28-2022 14:30-0400 Systolic blood pressure 121 mm[Hg] Nahid Mccoy Other [facility] Other Functional Status Date Assessment Result Facility 11-01-2022 Functional Status N/A General Delgado yaa Rodriguez Clinical Notes 05-16-2022 to 03-15-2024 Note Date [...] Keep all follow-up visits. Medicines ? Take tzwm-efw-ponhxhl and prescription medicines only as told by [...] work harder to (more content not included)... [facility] 11-25-2022 Note Chief Complaint consultation for umbilical [...] - Denies A (more content not included)... [facility] Comment on above: Result Comment: Elec tronically [...] was counseling done by myself, Ann ANGLIN. [facility] Other 09-28-2022 Evaluation note* Encounter Date Diagnosis Assessment Notes Treatment Notes Treatment Clinical Notes Aug, Abnormal weight gain (ICD-10 - R63.5) Aug, Prediabetes (ICD-10 - R73.03) Aug, Mixed hyperlipidemia (ICD-10 - E78.2) Aug, Hypertension (ICD-10 - I10) Aug, Obstructive sleep apnea (ICD-10 - G47.33) Aug, GERD (gastroesophageal reflux disease) (ICD-10 - K21.9) Aug, Metabolic syndrome X (ICD-10 - E88.81) [facility] Other 06-16-2022 NoteDISCHARGE SUMMARY DISCHARGE DATE: 05/18/2022 [...] pain free and no longer on narcotics. [facility] Signed and Approved by: DR AURA MURILLO . 05/20/2022 07:51:00[id number] NoteThe [place], [place] NAME: HORACIO PUGH DATE OF : MEDICAL REC#: [id number] [employer] SUPERVISOR: [id number] [facility] ADMIT DATE: 05/16/2022 11:05:00 SALES FLOOR MANAGER DATE: 05/17/2022 21:20 DICTATING PHYSICIAN: AURA MURILLO DICTATION DATE: 05/16/2022 15:02 OP Note OPERATION DATE: 05/16/2022 PROCEDURE: Supracervical hysterectomy with left salpingo-oophorectomy with right salpingectomy and right ovarian cystotomy of approximately 3 cm cyst. SURGEON: Aura Murillo D.O. CHEMISTRY TEACHER: SHUKRI Bailon URINE OUTPUT: Yellow and clear. [...] Murillo DO on 05/23/2022 10:30 AM EDT [facility] Signed and Approved by: DR AURA MURILLO . 05/23/2022 10:30:00[facility] No data available for this section General Surgery [place] Evaluation noteNo InformationNort Eyewitness Surveillance Other Evaluation noteNo assessment information available [facility] Work Phone: Histqfr general Narrative - Reported* Type Description Date [...] History TMJ surgery Hospitalization History see above [facility] Other [facility] general Narrative - Reported* Type Description Date [...] see above Hospitalization History [facility] . [facility] Other Hospital Discharge instructions No data available for this section General Surgery [place] Progress note No data available for this section General Surgery [place] Summary Purpose Family History No Family History [...] and content) initial [facility] Ozempic denied 09/19/2022WMN EDITOR DICTIONARY f/u, pt. request, SEE TE Oral meds, x injectible, initial WMNDS waiting for lab order to be sentDS please callDS Cancelled DM appt Patient Care team informatio n (unrecognized section and content) Team Status: Active Member Role Status Dates NON STAFF Primary Care Provider Active Team Status: Inactive Member Role Status Dates NON STAFF Primary Care Provider Active Dedrick Fuller DO [facility] Attending Provider Active INFORMATION SOURCE (unrecogn ized section and content) DATE CREATED AUTHOR 11/26/2022 [facility] DATE CREATED AUTHOR AUTHOR'S ORGANIZ ATION 12/03/2022 [facility] DATE CREATED AUTHOR AUTHOR'S ORGANIZ ATION 08/16/2023 [facility] DATE CREATED AUTHOR AUTHOR'S ORGANIZ ATION 03/21/2024 [facility] DATE CREATED AUTHOR AUTHOR'S ORGANIZ ATION 04/06/2024 [facility] EPIC Goals (unrecognized section and [...] BE BASED ON THE PRIMARY CLINICAL RECORDS. [employer] provides no warranty or guarantee of the accuracy or completeness of information in this document.
== END 2024-05-17 13:00 | disposition home or self-care (01) ==
LOC: MRI 12:59
PROVIDERS: PCP Family Medicine; Visit Provider Orthopaedic Surgery
DX: M54.16 Radiculopathy, lumbar region (principal); M71.38 Other bursal cyst, other site
CPT/HCPCS: 72148

== ENCOUNTER 2024-08-12 15:02 | Outpatient (OUT) | payer OTHER, SELFPAY ==
--- NOTE | 2024-08-12 | XR_ITS ---
The [address] [address] Patient Name: HORACIO KEATING MRN: [id number] date: 1975 Sex: F Assigned Patient Location: Current Patient Location: Accession/Order Number: [id number] Exam Date: 08/12/2024 15:10 Report Date: 08/14/2024 08:48 At the request of: FLORIN RICKETTS Procedure: XR cervical spine w flex/ext EXAMINATION: XR cervical spine w flex/ext HISTORY: CERVICAL SPINE PAIN COMPARISON: XR C-spine 02/19/2022 FINDINGS: BONES: Slight reversal of normal lordotic curvature involving C4-C5-6. Minimal grade 1 anterior listhesis of C4 on 5; no change in alignment during flexion and extension. Multilevel mild degenerative facet arthropathy. DISC SPACES: Slight narrowing C5-C6. PARASPINOUS: Negative. No paraspinous abnormality is seen. OTHER: Negative. XR/XR cervical spine w flex/ext IMPRESSION: 1. Mild degenerative changes, and likely at least some degree of central canal and foraminal narrowing at C5-C6; Stable to slight progression since prior study. Electronically authenticated by: LUZ ELENA SAUCEDA Date: 08/14/2024 08:48
--- OUTSIDE RECORDS SUMMARY | 2024-08-12 15:12 | XMS_ITS | CCD ---
Author Organization [facility] CliniSysd Care Team Providers Care Architectural Representative Name Role Phone Nahid Mccoy Unavailable Clarice Hull Unavailable Sami Marinelli Primary Care Physician [phone] Nicola BUCHANAN Attending Unavailable ISMAEL MENJIVAR Referring Unavailable SISSY, DR ABIGAIL Mc Consulting Unavailable LUL, DR GALLARDO Primary Care Unavailable ROSCOE, DR CHAVARRIA Attending Unavailable ROSCOE, DR CHAVARRIA Admitting Unavailable ROSCOE, DR CHAVARRIA Consulting Unavailable ROSCOE, DR CHAVARRIA Consulting Unavailable LUL, DR GALLARDO Referring Unavailable LUL, DR GALLARDO Primary Care Unavailable ROSCOE, DR CHAVARRIA Attending Unavailable RSOCOE, DR CHAVARRIA Admitting Unavailable ZIEBER, DR LUZ ELENA Fermin Consulting Unavailable EULA SMILEY Consulting Unavailable ROSCOE, DR CHAVARRIA Procedure Practitioner Unavailab LUZ ELENA Rolle Consulting Unavailable SIENNA JI Consulting Unavailable SAMI JONES Consulting Unavailable LUL, DR GALLARDO Primary Care [...] Admitting Unavailable LUL, DR GALLARDO Consulting Unavailable HOY, DR GALLARDO [...] ZIEBER, DR LUZ ELENA Fermin Consulting Unavailable HOY, DR GALLARDO Primary Care Unavailable ISMAEL MENJIVAR Attending Unavailable ISMAEL MENJIVAR Admitting Unavailable ISMAEL MENJIVAR Consulting Unavailable Dedrick Fuller Attending Unavailable Dedrick Fuller Admitting Unavailable NON STAFF Primary Care Unavailable Nahid Mccoy Admitting Unavailable NON STAFF Primary Care Unavailable Nahid Mccoy Attending Unavailable NON STAFF Primary Care Provider UnavailDO Dedrick Alfaro Attending Provider [phone] Nicola Neff Attending Unavailab Nicola Anderson Admitting Unavailab SAMI Matos Primary Care Unavailable JESSICA SANCHEZ Attending Unavailable AURA MURILLO Attending Unavailable Allergies Allergy Classification Reported Allergen(s) Allergy Type Date of Onset Reaction(s) Facility (7 sources) NITROFURANTOIN, MACROCRYSTALS / Nitrofurantoin, Monohydrate; 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: [nitrofurantoin] Drug Allergy Neck swelling (finding) [facility] (1 source) Albuterol Drug Allergy [facility] Comment on above: NEED TO CUT DOWN ADR ENALIN TO PREVENT SEIZURES (2 sources) Bee/Wasp/Ant venom; 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: [Bee Stings] Allergy to substance Nausea, Swelling [facility] (1 source) PECANS 1 Food allergy [facility] Comment on above: AIRWAY CONSTRICTION (2 sources) Albuterol; 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: [albuterol] Drug Allergy [facility] (1 source) Egg; 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: [Eggs] Food allergy (disorder) [facility] (4 sources) Nitrofurantoin; 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: [Macrobid] Drug Allergy 2 [facility] (1 source) PECANS; 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: [PECANS] Food allergy (disorder) [facility] (2 sources) bee venom Drug allergy (disorder) 5 [facility] (2 sources) egg extract Drug Allergy 5 [facility] (2 sources) pecan pollen extract Drug Allergy [facility] (2 sources) tree nut, unspecified Drug allergy (disorder) 5 [facility] Medications Current Medications Medication Drug Class(es) [...] 10/30/22 Status: Ordered take 1 capsule by [facility] every twenty-four hours Omeprazole 40 MG 1 [...] 2 Chronic Other aftercare (1 source) Other [facility] (current) drug therapy; 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: [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 CURRENT DRUG THERAPY] Onset: 2 Episodic Other [...] Coding Summaryon 03-19-2024 Coding Summary HTMLBase 64 OczjkpycXYe3pNn+PGhlY WQ+UB7SWFOlO86ceAYrjZ 7mA2GOXLaAEwstWXOPQKe DYwVtnpJbIW7nvIIsDWKm IC8+AS5fSPFhUtwfsPGyp 5L2kLU6J47fpr0qJEttvV A6ACQiBaQfldwad6dakIq 6IDcuNmluOyBt PUCzpX98RDI9dT59Hm02r YRxnFLcm3lgjAa9EcCfKZ XrUKC4qTegMAjpj7KuHIU pV42ijUUwx5O3 LTJflQrfoQYfHiJszIE8t B3aYVpicwhba4lpgqtlKu t5wa26tTLep2R4oVE5Y5J pabR7TTYvgELw XfwdcQYGtU0yhxqoy7bmc ooaNuLxKXXqEJd8LSp6AX FowDawVlNbJI04HTF4QKR binLfB8JpQPTd qCxcNdP9j5G9Ps4YG9IFG rzvE0NSVBIATVgmpRD+PC 31kr60T9BbLyyvCbf5DLO kNCD4aWS6kW4i NUNuRZglc0S7uDC2U1Umv cUjqa6do8ycCXAeSMhkD3 5upLQwq0A8NPTjnAO1IZC poQvoBgJclM63 Oyc+APMebUrbl7EwXgnfr 2brr5olnPm7TkfoJZWpzn LipTaqGAC1h9ZjBn0zWZY saGO9bHP6iQ9b OqLcFgS7QYdkT499LfZck WNuUifbK89dS6TumWM+PH KeVqa4UQOfyNasRB6xF2P hZGRpbmctbGVm fNeoRR0aRAGnlxrhWXPur E7uWJAjN1d1MlAaJkX4JA wlF6UiWZIzdobxIk22nE5 xCeSrRgM8IRfg G4FeztU7FMFnlZYsJWqfN MG0X26at7E2IEAsYDSsEX S9dHX6yA5ntQyfhrkvzJF mdDsgdmVydGlj IWvxNUjrZ432LDXgyPzvY kNvZGluZyBEYXRlOiAgMD QvMTkvMjAyNDwvdGQ+PHR sSWR7fQtvZNSv wQArRMknCa0gcYteoExgA U3iVUAxavmlJFOkqX5bRM AmpYBhhAsqFF4rLYGvqvb lp411JqUpBKR6 ZKCzhSGbP6DnkO1jBtQjC WSdKAQlK7CqiJOcSXbgF5 91FTiuAjY3JUUrrbEdV0H sLWFsaWduOiB0 v1P2Mz8Cl5JbxcimO3Swt NHbXfEmYeyuYXr2V4HnVa wvdHI+GF89TZObRA73EQf 7QPA1cVwaXXks KWBaD7NmxS8gBmMhLNYnS GRkOyc+PHRhYmxlIHdpZH RoPScxMDAlJyBzdHlsZT0 xRb2sUYBxSFSp dMsimWKrVqPjd6psLJLmC CieSR9lxWtxZ9MbdRU9IF Nrg2s3Iy96D89wA0MxjGK +BWKbwVV5gJY3 bA2mBpXwZaL9AZlpM028V lTctDDvIpixx3zvz0rrzO s7DaL1FBPcurDcmFtuAJJ 7t1TdIb78K05s IHdpZHRoPSIxNSUiIHZhb Vmlck7eeJ7mUe5+PGNvbC E6rQI1tJ5fKlEdMaU1QQv pN120NzYzxFPk Kopom8mzw4ecyAg4WaRpG PMjpvHdtIdvJIC3s3UkUt 67W3VcyVhic3YeBgb2ft0 5pBVpd7X4kXO6 N8GjGALnivqhoNCwgQrrJ B2fZQOogkcoFDArnA7gFG BaG2i5YrElXeO2GQfmO5F pjlL7KCPxmUSl WJUkqWMPaS5hhlqro2lnn weiZpVbBSBtKBb8WAy1XE MajMirTpUwLMC4IiW8UQG 5oGNmeY9fxLzt cpnwiO6eLpm+XWW5hCDxh LRJVH9mRheavQD+PHRkIH U6iSlnMAvaGYRymP0sNFV uD7h1QgBnZzM4 FHjxN9AgqfM1KEOomRWpY DKhjVVFhP3oessxc3gfez zcZwOoIEJeRVg8QCd0WWX saWduOiBsZWZ0 MjJ3NAS1eWEohC0crKqxt wrtlH6bEps+QmlydGggRG O2VDd2B2IzUdf0DZXwwBy fXV9xwYHyGDmi Gb3npFjomGwrCU9sARVed wuvk281XtJyu9xfNVJxgF JqMKveQHO5J93lv9G6BDV eCBSoHQL4vGI1 gH9xwLfjmguwmQLdoRehb rNeySuwTSjjOGknE392WT SvlSjwInDyPSv5Y9WyAuc 9VUOeoQuhTN2s tSPuNHijBc3bkAtwzSixF Z4jDBScmaobu299FbSop9 htJUErtYAoKJhiTCB3P23 qv6D4VZScHUUr AMQ6nHW2uQ4jpUpyksngl GVmdDsgdmVydGljYWwtYW vlN664MDXqpZhaWeIorLk 6N9ZhQuh9YJMu tTmuZU5fpVNaEDtqAj0xo SgxfHlkRO5iSQBakbbhx4 30GgNye6vvEQWteNTkWPj qORA4T51da5D1 LHVhXKRqATP5dNJ2hR8mc GlnbjogbGVmdDsgdmVydG voPHkdIOqbE007BSBttGp nPlBhdGllbnQg ZHmgFBx9L4DnAosucCB+P P71POKcRR76yFYjvIOus1 wmgAx3IxVqQAVeVSV3qSv lFLgtf5NfPHEz S81trZPzg6J7TRHplUzwo HClTcSdwXP4tX0fDQkisk ctd2pmcimtWtbwo3qbif0 5uE63W20jWJrk ZHRoPSIzMCUiIHZhbGlnb y0haN7pRc4+SAKfwHC6iY X4rX3kGNVkNeA6UQjjK19 9InRvcCIvPjxj z0oxu4ipwVm6EzN1NGNiv aMzrAgsIMC8z4UvBz37P7 9sIHdpZHRoPSIyMCUiIHZ vgFsdgk4pkZ2k Ii8+PCNfxTP5bYT3dG8lU hQdQyI7NIkwO570SdAozR JsRcrcN33wN0ZzbKC+PHR rAza0ASKeySrk VH9zzUXkXBcbAi5eOQI4D gSoTeXgXFbaU9NoQOStiw zdgoiekOB6BDXzHWLsyT2 2Jd8njNpdNFCl oFTMtL8zhfppg0azhhuiD fMqYNMhOYr9MXv5EAYhrY agJoRiXBE1GgX7LMM8hGC ylK9jqJglvfks gT2wK4RmAFCuihemKf32e S4cJnBeYkN7GEhwVft+Q0 3YDMREFPMABJOFZZ8YTD0 OC21XCIlmhGG+ JWWqBIQ1kIjpHWzwCBKew N6pZTIpF1l5XjUiXiC6KA scR5RvGHQcnupzFc25lQ8 hSaGjScK3NEcx R7SejxH3CSRwbPPpIEakR OS2G47gu9O9NFNbORDyXO W5gLY8zN7psVykfkxwmKA mdDsgdmVydGlj VWgqKYvoO900QCSunYqjL pT5VmA5MuR5AlM4G1TbBo b2OMZxsTxoOL9ukKTwNBt zFr1mwUjruPlr JB4iPFJfdqamFCGezB5fD FNpjWYwoXgvEM3gFEJbyr are494OmIeGVN4NFUhlQV uJ4YodH1lTeCb LAHpTPByD1TnfHSjSLkhR 164ZLsmReH8CIOryxRgM2 AgFXUsvSjbLqK6e4W4Hr2 0NyBZZWFyczwv dGQ+OCKfEUC6aJceTDwkB WHgyD1nLAKrW8f4YyLjKr H5MWdkP9WjTNIeasccIs6 3mA4yRkQyBhH6 WRyxL5GoweB9JWPpuSWnM MpkYKX2Z27hl6Z7EGTkYQ YsDJF3lPV6kL5isSiqeik gbGVmdDsgdmVy bQgdQMcaRTwqG416ZPSwo DsnPkZFTUFMRTwvdGQ+PH TfHGF2dToqMUfnAIYhaU4 jZDMuU1s3CiUq UdO4ECslJ5WfGENnlljmK n32vQ0tPkTqRoH5BHzeM9 YmojB3JROyxNWdEPxiBLF 4U91uk2D5TZWc WGJvWHV5jVZ4bT6xzUqoy jogbGVmdDsgdmVydGljYW ryOOevP690SPDtuUjhDlA gHFWeZI3enBxw dGQ+QT45bz26M9VmSrnhE wi8WUQzXUL1tTE6pT5pSU GmDXibc5S5yAT2C3FcvvF yoq8uk6xeQSCo SOobI51mlRByn7T3HXPio ZH8ZKAbzEjjVqEtoR04It c+IBTxjTmut0VfYusot5q gf8pcuNy5GpQw GHSvioVcyFjhNSI8z0DuD m89L36jSEjhDPQgPNKdIR YjOXRtpEmuwb0azY1wPi4 +ZNHtnYE9nBP8 vV8uEqKrRgO4VKpbT552Z rDpkBZxKtljq2oov6qshD l2OjHdUZVsogRjyPlxEPT 1y7WqNg50I4Ev fYnby6KcNgp0mx41qKAav 4D7mAW2H1YoLQQcrkhqhI QcuRpzFA5sIRTfezomKQU joU1wXBWeR8a4 OrWbOgH5LJfnJ8WonhB9E CQquQSeMYBbtLVHzW3xhz pqy0lqbrdyVcNrHUOmTGq 8QLt7LCBoiRdu KkAzYKV3OaS6WXG5uIBbs F5gmYdxqvbvsS9wQvy+UG q4f4crcRQrVO2nrOK9HR4 8NI15bQHkt0K3 wVK7K4PiSZUpysdxlgwza NV8LQFhZHPpwV03Xp0ecN drXx8pMILoKMZ3TLOooQV hP1EqxM1hQeNf OOXeZZCdA8FubIIvISdlC 957BQgmAuR9QAPpydFcM1 YrWSGmaTiaDwB1x8M3Wy1 NDU55LD75DC14 yQQpa0Q1wTP7J5BnGVTwj zwwaspqcNS0IBVpAZCocM 30Yz3ycBdoAo2mQTPgYLM 3GIOkpQUiC5Ak xY9zRmSbKJSjCSYpG2Ewi WGlSNxjA574VJvoCpU8IS RpvpWbF4GqRKVafCnpIrR 2v8L8Wt5MRv09 RR66WR42iHWdr1X7xWY9O 2JsDIOmdloalxkexUL4SS GdQTXptL56Tt7pyXplDc3 lUISrSRS9HBIx rLZbO4MowM9vXmByMCCrA VQzL8JaoFDuAXyvG995II odSrZ0GRQppyLcI5DhVXV tbFwdQxN1n8N4 Tg2SSQindxt6G4DeRyldj HI+BG99CRZvHC01xOGpnC Cdp7kjbRc1JxRyFHGtFCS 2lCkrBTdof5Ql ZXI (more content not included)... Normal [facility] Noteon 03-17-2024 Ambulance Note [id number]#1.00 OTGTIFF Normal [facility] C Urineon 03-17-2024 C Urine Urine Culture ordere d as a result of parameters set on specific urine dip and urine microsopic results. >100,000 cfu/ml Lactobacillus species Normal vaginal oleg isolated 10,000 cfu/ml Corynebacterium species (DIPTHEROID) No YOLANDE performed on this organism No pathogens isolated [facility] Comment on above: Performed By: #### 5 [id number], [id number], [id number] ####[facility] (DEFAULT)[address] [place] [address] .Auto Diff 1on 03-15-2024 Auto [place] % 3 % Normal -12 [facility] Comment on above: Performed By: #### 5 [id number], [id number], 1565613010, 01442644, 2188840264, 6581894, 7489347 #### [facility] (DEFAULT) [address] [place] [address] Baso Abs# 0.1 x10 Normal 0.0-0.2 [facility] Comment on above: Performed By: #### 5 [id number], [id number], 5617508222, 40535579, 2302175335, 9605698, 1145754 #### [facility] (DEFAULT) [address] [place] [address] 04503 Basophils/100 WBC (Bld) 0.7 % Normal 0.2-2.0 [facility] Comment on above: Performed By: #### 5 [id number], [id number], 4615305775, 19569491, 2209478099, 6272795, 7768357 #### [facility] (DEFAULT) [address] [place] [address] 12696 Eos Abs# 0.1 x10 Normal 0.0-0.4 [facility] Comment on above: Performed By: #### 5 [id number], 5863956534, 4387182327, 88505188, 2403956563, 1107472, 5306639 #### [facility] (DEFAULT) [address] [place] [address] 32433 Eosinophils/100 WBC (Bld) 0.7 % Low 0.9-4.0 [facility] Comment on above: Performed By: #### 5 [id number], 2158477577, 8610105206, 03828999, 7432754539, 4581079, 9495751 #### [facility] (DEFAULT) [address] [place] [address] 21997 Lymph Abs# 2.2 x10 Normal 1.3-2.9 [facility] Comment on above: Performed By: #### 5 [id number], 9803916874, 6235488012, 59270100, 5395223432, 1245243, 9402299 #### [facility] (DEFAULT) [address] [place] [address] 94349 Lymphocytes/100 WBC (Bld) 14 % Normal 14-48 [facility] Comment on above: Performed By: #### 5 [id number], 4532910408, 4952164577, 51176147, 6253211289, 7744559, 5718372 #### [facility] (DEFAULT) [address] [place] [address] 76087 [place] Abs# 0.5 x10 Normal 0.0-0.8 [facility] Comment on above: Performed By: #### 5 [id number], 5031230155, 9728026941, 91222992, 9699725081, 2901219, 9538175 #### [facility] (DEFAULT) [address] [place], [place] [address] Neut Abs# 13.5 x10 High 1.5-9.2 [facility] Comment on above: Result Comment: Slid e Reviewed Performed By: #### 5 [id number], 0744049839, 1208449996, 91836629, 1150334059, 3851321, 4869518 #### [facility] (DEFAULT) [address] [place] [address] Neutrophils/100 WBC (Bld) 82 % Normal 44-88 [facility] Comment on above: Performed By: #### 5 [id number], 0507300180, 5181099470, 10708810, 3120649630, 4066144, 0398263 #### [facility] (DEFAULT) [address] [place] [address] CBC w/ Auto Diffon 4 Erythrocyte distribution width (RBC) [Ratio] 13.3 % Normal 11.5-15.0 [facility] Comment on above: Performed By: #### 5 [id number], 4235506094, 1345595777, 83415909, 4836794298, 9319822, 0717279 #### [facility] (DEFAULT) [address] [place] [address] Hematocrit (Bld) [Volume fraction] 45.0 % High 33.7-40.4 [facility] Comment on above: Performed By: #### 5 [id number], 4789791674, 6135738764, 36737051, 4259534827, 1192666, 4309380 #### [facility] (DEFAULT) [address] [place] [address] Hemoglobin (Bld) [Mass/Vol] 15.0 g/dL Normal 11.3-15.9 [facility] Comment on above: Performed By: #### 5 [id number], 7359971596, 1026753270, 83765151, 8871845348, 7116351, 2791807 #### [facility] (DEFAULT) [address] [place] [address] Man Diff? Auto Invalid Interpretation Code [facility] Comment on above: Performed By: #### 5 [id number], 1798606210, 9439311686, 71366783, 8811431823, 1682010, 3847779 #### [facility] (DEFAULT) [address] [place] [address] MCH (RBC) [Entitic mass] 32 pg Normal 24-34 [facility] Comment on above: Performed By: #### 5 [id number], 6013301036, 0781587893, 99149469, 0494695408, 9619433, 0596449 #### [facility] (DEFAULT) [address] [place] [address] MCHC (RBC) [Mass/Vol] 33 g/dL Normal 26-37 [facility] Comment on above: Performed By: #### 5 [id number], 2392652409, 2989426015, 43963142, 8911324426, 4578282, 0869118 #### [facility] (DEFAULT) [address] [place] [address] 93631 MCV (RBC) [Entitic vol] 95 fL Normal 81-100 [facility] Comment on above: Performed By: #### 5 [id number], 3093847545, 8541080023, 84381872, 7433616082, 1967093, 4175438 #### [facility] (DEFAULT) [address] [place] [address] Platelet 292 x10 Normal 138-427 [facility] Comment on above: Performed By: #### 5 [id number], 2146935203, 9444414186, 53094524, 7633305201, 5508172, 7222739 #### [facility] (DEFAULT) [address] [place] [address] Platelet mean volume (Bld) [Entitic vol] 8.7 fL Normal 6.3-10.2 [facility] Comment on above: Performed By: #### 5 [id number], 5315307823, 6653378027, 12821078, 8329491405, 7760714, 2111281 #### [facility] (DEFAULT) [address] [place] [address] 64757 RBC 4.74 x10 Normal 3.70-5.30 [facility] Comment on above: Performed By: #### 5 [id number], 9863038776, 2727754724, 92971747, 6041962644, 8590841, 5528760 #### [facility] (DEFAULT) [address] [place] [address] WBC 16.4 x10 High 3.5-10.5 [facility] Comment on above: Performed By: #### 5 [id number], 8806395607, 4122322067, 21170588, 4769213729, 4019565, 3213905 #### [facility] (DEFAULT) [address] [place] [address] CMP Standardon 03-15-2024 eGFR Non AA >60 Invalid Interpretation Code [facility] Comment on above: Performed By: #### 5 [id number], 4552262489, 4194639443, 49441983, 4349959321, 5280296, 2715281 #### [facility] (DEFAULT) [address] [place] [address] 25757 eGFR AA >60 Invalid Interpretation Code [facility] Comment on above: Performed By: #### 5 [id number], 1509427812, 6163486293, 46929088, 2571584111, 5878489, 0251545 #### [facility] (DEFAULT) [address] [place] [address] 77398 Albumin [Mass/Vol] 4.1 g/dL Normal 3.5-5.0 [facility] Comment on above: Performed By: #### 5 [id number], 2540714966, 6427716444, 56333797, 4282019469, 8964762, 0954832 #### [facility] (DEFAULT) [address] [place] [address] 99729 Albumin/Globulin [Mass ratio] 1.3 {ratio} Low 1.4-2.6 [facility] Comment on above: Performed By: #### 5 [id number], 8476936167, 2886788700, 62884920, 1985415182, 2647775, 3948222 #### [facility] (DEFAULT) [address] [place] [address] 39640 Alk Phos 39 IU/L Normal 32-91 [facility] Comment on above: Performed By: #### 5 [id number], 6450157972, 0376835766, 41860550, 7621578974, 7122298, 4331353 #### [facility] (DEFAULT) [address] [place] [address] 84464 ALT [Catalytic activity/Vol] 32.0 U/L Normal 14.0-54.0 [facility] Comment on above: Performed By: #### 5 [id number], 7775895936, 8994844086, 37186312, 9588438218, 6288826, 3766328 #### [facility] (DEFAULT) [address] [place] [address] 09723 Anion gap [Moles/Vol] 13.0 mmol/L Normal 5.0-19.0 [facility] Comment on above: Performed By: #### 5 [id number], 7687036253, 9994035671, 44652083, 2931823586, 9337169, 8132130 #### [facility] (DEFAULT) [address] [place] [address] 87328 AST [Catalytic activity/Vol] 25 U/L Normal 15-41 [facility] Comment on above: Performed By: #### 5 [id number], 1101767709, 4307189600, 72350466, 0430983960, 3288902, 6864731 #### [facility] (DEFAULT) [address] [place] [address] 57503 Bili Total 1.4 mg/dL High 0.3-1.2 [facility] Comment on above: Performed By: #### 5 [id number], 7117197069, 5429710545, 67436444, 0347719119, 1492853, 6617437 #### [facility] (DEFAULT) [address] [place] [address] 48474 Calcium [Mass/Vol] 8.8 mg/dL Low 8.9-10.3 [facility] Comment on above: Performed By: #### 5 [id number], 7466197130, 6451434772, 43147142, 2332036415, 6688221, 5507197 #### [facility] (DEFAULT) [address] [place] [address] 92604 Chloride [Moles/Vol] 105 mmol/L Normal 101-111 [facility] Comment on above: Performed By: #### 5 [id number], 4869337527, 6178718385, 63152187, 0015037787, 4161584, 4507426 #### [facility] (DEFAULT) [address] [place] [address] 07681 CO2 [Moles/Vol] 24 mmol/L Normal 21-32 [facility] Comment on above: Performed By: #### 5 [id number], 7015964318, 9534601066, 66381945, 6252962788, 3622726, 0687676 #### [facility] (DEFAULT) [address] [place] [address] 02521 Creatinine [Mass/Vol] 0.72 mg/dL Normal 0.60-1.30 [facility] Comment on above: Performed By: #### 5 [id number], 3287535731, [id number], [id number], [id number], [id number], [id number] #### [facility] (DEFAULT) [address] [place] [address] 78535 Globulin (S) [Mass/Vol] 3.0 g/dL Normal 1.5-4.3 [facility] Comment on above: Performed By: #### 5 [id number], [id number], [id number], [id number], [id number], 1089886, [id number] #### [facility] (DEFAULT) [address] [place] [address] 62462 Glucose [Mass/Vol] 124.0 mg/dL High 74.0-118.0 [facility] Comment on above: Performed By: #### 5 [id number], [id number], [id number], [id number], [id number], 6576943, 8255674 #### [facility] (DEFAULT) [address] [place] [address] 27883 Osmolality 278 mOsm/L Invalid Interpretation Code [facility] Comment on above: Performed By: #### 5 [id number], [id number], [id number], 95833540, [id number], 1968842, 7022605 #### [facility] (DEFAULT) [address] [place] [address] 41090 Potassium [Moles/Vol] 4.0 mmol/L Normal 3.6-5.1 [facility] Comment on above: Performed By: #### 5 [id number], [id number], [id number], 41081208, [id number], 8877025, 0595917 #### [facility] (DEFAULT) [address] [place] [address] 37179 Protein [Mass/Vol] 7.1 g/dL Normal 6.5-8.1 [facility] Comment on above: Performed By: #### 5 [id number], [id number], [id number], 10523419, 2508403229, 2422436, 5507910 #### [facility] (DEFAULT) [address] [place] [address] 21687 Sodium [Moles/Vol] 138.0 mmol/L Normal 136.0-144.0 [facility] Comment on above: Performed By: #### 5 [id number], [id number], [id number], 06023327, [id number], 8415626, 3204430 #### [facility] (DEFAULT) [address] [place] [address] 29944 Urea nitrogen [Mass/Vol] 15 mg/dL Normal 8-26 [facility] Comment on above: Performed By: #### 5 [id number], [id number], [id number], 53519813, [id number], 0920768, 9525580 #### [facility] (DEFAULT) [address] [place] [address] 10762 Urea nitrogen/Creatinine [Mass ratio] 20.8 mg/mg High 4.6-16.2 [facility] Comment on above: Performed By: #### 5 [id number], [id number], [id number], 83280212, [id number], 4958763, 8444172 #### [facility] (DEFAULT) [address] [place] [address] 59051 Breakpoint Chem Normal [facility] Comment on above: Performed By: #### 5 [id number], [id number], [id number], [id number], [id number], 0805668, 7367901 #### [facility] (DEFAULT) [address] [place] [address] 99683 ED Clinical Summaryon 2023 ED Clinical Summary [facility] Emergency Department [address] [place] [address] ED Clinical Summary PERSON INFORMATION Name: HORACIO KEATING Age: 48 Years Sex: FEMALE : 1975 MRN: Acct#: Visit Reason: Shortness of breath; Anxiety; Blood pressure check; SOB Arrival: 03/15/2024 17:56:51 Discharge: 03/15/2024 20:31:00 LOS: 000 02:35 Check In: 03/15/2024 17:56:51 Checkout:03/15/2024 20:31:00 Address: [address] [place] [address] PCP: SAMI MARINELLI PROVIDER INFORMATION Provider Role [...] . Physical Exa (more content not included)... [facility] ED Note - Physicianon 2023 ED [...] No lymphadenopathy. Psychiatric: (more content not included)... [facility] ED Note-Nursingon 03-15-2024 ED Note-Nursing Patient presents to the ER via [facility] for shortness of breath, anxiety. Patient [...] cannula. 12 lead was regular in rate [facility] ED Patient Summaryon 024 ED Patient Summary [facility] - Emergency Department [address] [place] [address] PATIENT DISCHARGE INSTRUCTIONS Patient Information Name: HORACIO KEATING Age: 48 Years Date of : 1975 Reason For Visit: Shortness of breath; Anxiety; Blood pressure check; SOB Arrival Time: 03/15/2024 17:56:51 Primary Care Physician: SAMI MARINELLI Attending Physician: Nicola Neff DO Comment: Visit Diagnosis: Diagnoses This Visit Anxiety (61021010) Blood pressure check ([id number]) Hypertension (I10) Panic attack (F41.0) Shortness of breath ([id number]) Urinary tract infection (N39.0) The Pharmacy at [facility] is open Friday through Friday from 9A [...] alcohol and/or drug addiction problems; contact the [facility] 23/06 Crisis Hotline -Text 4VQAV nm [phone]. If you received any narcotics, sedation, or [...] legal documents With: Address: When: SAMI MARINELLI [address] [place], [place] [id number] Business (1) Within 3 to 5 days Comments: Call for follow up appointment Return if symptoms worsen Medication Information: The exam and treatment you received today in the [facility] Emergency Department were for an urgent problem and are not intended as complete care. It is important for you to follow up with a doctor, nurse practitioner, or physician?s guest services assistant for ongoing care. If your symptoms [...] so we can reach you if necessary. [facility] has provided you with a complete list of medications post discharge. Please inform your welding machine operator electron beam/provider of your visit and for further instruction [...] Vitals an (more content not included)... Normal [facility] 03-15-2024 Tube Collected Yes Invalid Interpretation Code [facility] Comment on above: Performed By: #### 5 [id number], [id number], [id number], [id number], [id number], [id number], [id number] #### [facility] (DEFAULT) [address] [place] [address] Extra Redon 03-15-2024 Tube Collected Yes Invalid Interpretation Code [facility] Comment on above: Performed By: #### 5 [id number], [id number], [id number], [id number], [id number], [id number], [id number] #### [facility] (DEFAULT) [address] [place] [address] 15037 PTon 03-15-2024 INR Coag (PPP) [Relative time] 0.94 {INR} Normal 0.91-1.11 [facility] Comment on above: Performed By: #### 5 [id number], [id number], [id number], [id number], [id number], [id number], [id number] #### [facility] (DEFAULT) [address] [place] [address] PT 9.8 second(s) Normal 9.7-11.8 [facility] Comment on above: Performed By: #### 5 [id number], [id number], [id number], [id number], [id number], [id number], [id number] #### [facility] (DEFAULT) [address] [place] [address] 07976 TnI HSon 03-15-2024 Troponin I High Sensitivity 7.7 pg/mL Normal <=15.0 [facility] Comment on above: Performed By: #### 5 [id number], [id number], [id number], [id number], [id number], [id number], [id number] #### [facility] (DEFAULT) [address] [place] [address] 54068 UA [id number] 03-15-2024 UA Amorph. 1+ Normal [facility] Comment on above: Order Comment: Urina lysis Microscopic order added on by Dis[employer] Expert Rules system. Performed By: #### 5 [id number], [id number], [id number] ####[facility] (DEFAULT)[address] [place] [address] 78251 UA Bacteria 3+ Normal [facility] Comment on above: Order Comment: Urina lysis Microscopic order added on by Dis[employer] Expert Rules system. Performed By: #### 5 [id number], [id number], [id number] ####[facility] (DEFAULT)[address] [place] [address] 89722 UA Mucous 1+ Normal [facility] Comment on above: Order Comment: Urina lysis Microscopic order added on by [employer] Expert Rules system. Performed By: #### 5 [id number], [id number], [id number] ####[facility] (DEFAULT)[address] [place] [address] UA RBC 3-5 [facility] Comment on above: Order Comment: Urina lysis Microscopic order added on by [employer] Expert Rules system. Performed By: #### 5 [id number], [id number], [id number] ####[facility] (DEFAULT)[address] [place] [address] UA Renal Epi Rare [facility] Comment on above: Order Comment: Urina lysis Microscopic order added on by Dis[employer] Expert Rules system. Performed By: #### 5 [id number], [id number], [id number] ####[facility] (DEFAULT)[address] [place] [address] UA Squam Epi Many [facility] Comment on above: Order Comment: Urina lysis Microscopic order added on by [employer] Expert Rules system. Performed By: #### 5 [id number], [id number], [id number] ####[facility] (DEFAULT)[address] [place] [address] UA WBC 3-5 [facility] Comment on above: Order Comment: Urina lysis Microscopic order added on by [employer] Expert Rules system. Performed By: #### 5 [id number], [id number], [id number] ####[facility] (DEFAULT)[address] [place] [address] UA w Culture if Ind Standard on 03-15-2024 Breakpoint UA [facility] Comment on above: Performed By: #### 5 [id number], [id number], [id number] ####[facility] (DEFAULT)[address] [place] [address] 12115 Color (U) Yellow Normal [facility] Comment on above: Performed By: #### 5 [id number], [id number], [id number] ####[facility] (DEFAULT)[address] [place] [address] 28189 Culture? Indicated Invalid Interpretation Code [facility] Comment on above: Result Comment: Resu lt created by rule GL_MAGR_ADD_UA_CULT Result created by rule GL_MAGR_ADD_UA_CULT Result created by rule GL_MAGR_ADD_UA_CULT1 Result created by rule GL_MAGR_ADD_UA_CULT Performed By: #### 5 [id number], [id number], [id number] ####[facility] (DEFAULT)[address] [place] [address] 23326 Glucose (U) [Mass/Vol] Negative Normal [facility] Comment on above: Performed By: #### 5 [id number], [id number], [id number] ####[facility] (DEFAULT)[address] [place] [address] 08409 Ketones Ql (U) Negative Normal [facility] Comment on above: Performed By: #### 5 [id number], [id number], [id number] ####[facility] (DEFAULT)[address] [place] [address] 43538 Micro? Indicated Invalid Interpretation Code [facility] Comment on above: Result Comment: Resu lt created by rule GL_MAGR_ADD_UA_MICRO Performed By: #### 5 [id number], [id number], [id number] ####[facility] (DEFAULT)[address] [place] [address] 39307 UA Bilirubin Negative Normal [facility] Comment on above: Performed By: #### 5 [id number], [id number], [id number] ####[facility] (DEFAULT)[address] [place] [address] 07325 UA Blood TRACE Abnormal NEGATIVE [facility] Comment on above: Performed By: #### 5 [id number], [id number], [id number] ####[facility] (DEFAULT)[address] [place] [address] 93564 UA Clarity SL CLOUDY Abnormal CLEAR [facility] Comment on above: Performed By: #### 5 [id number], [id number], [id number] ####[facility] (DEFAULT)[address] [place] [address] 61056 UA Leuk Est LARGE Abnormal NEGATIVE [facility] Comment on above: Performed By: #### 5 [id number], [id number], [id number] ####[facility] (DEFAULT)[address] [place] [address] 76117 UA Nitrite Negative Normal NEGATIVE [facility] Comment on above: Performed By: #### 5 [id number], [id number], [id number] ####[facility] (DEFAULT)[address] [place] [address] 23412 UA pH 6.0 Normal 5-8 [facility] Comment on above: Performed By: #### 5 [id number], [id number], [id number] ####[facility] (DEFAULT)[address] [place] [address] 82421 UA Protein Negative Normal NEGATIVE [facility] Comment on above: Performed By: #### 5 [id number], [id number], [id number] ####[facility] (DEFAULT)[address] [place] [address] 00594 UA Spec Grav 1.015 Normal 1.001-1.035 [facility] Comment on above: Performed By: #### 5 [id number], [id number], [id number] ####[facility] (DEFAULT)[address] [place] [address] 92867 UA Urobilinogen 0.2 mg/dL Normal 0.2-1.0 [facility] Comment on above: Performed By: #### 5 [id number], [id number], [id number] ####[facility] (DEFAULT)[address] [place] [address] 36335 Urine Source Clean Catch Normal [facility] Comment on above: Performed By: #### 5 [id number], [id number], [id number] ####[facility] (DEFAULT)[address] [place] [address], [place] [address] XR Chest 1 View Frontalon XR Chest [...] MD 03/15/24 7:34 pm Technologist: Lizzy BRICEÑO [facility] Basic Metabolic Panelon 08-01 Anion gap [Moles/Vol] 10.3 mmol/L Normal 6.0-15.[address] [facility] Comment on above: Performed By: #### L IPID, BMP #### [facility] [address] Calcium [Mass/Vol] 9.1 mg/dL Normal 8.6-10.3 [facility] Comment on above: Performed By: #### L IPID, BMP #### [facility] [address] [place] [id number] [place] Chloride [Moles/Vol] 107 mmol/L Normal 98-107 [facility] Comment on above: Performed By: #### L IPID, BMP #### [facility] [address] [place] [address] [place] CO2 [Moles/Vol] 26.7 mmol/L Normal 21.0-31.0 [facility] Comment on above: Performed By: #### L IPID, BMP #### [facility] [address] [place] [address] [place] Creatinine [Mass/Vol] 0.77 mg/dL Normal 0.60-1.20 [facility] Comment on above: Performed By: #### L IPID, BMP #### [facility] [address] [place] [id number] [place] GFR/1.73 sq M.predicted MDRD (S/P/Bld) [Vol rate/Area] mL/min/{1.73_m2} Normal [facility] Comment on above: Performed By: #### L IPID, BMP #### [facility] [address] [place] [address] [place] Glucose [Mass/Vol] 97 mg/dL Normal 70-100 [facility] Comment on above: Result Comment: [place] Glucose Reference Range is dependent on time and content of last meal. Glucose of more than 200 mg/dL in a nonstressed, ambulatory subject supports the diagnosis of Diabetes Mellitus. ADA recommended reference range Performed By: #### L IPID, BMP #### [facility] [address] Potassium [Moles/Vol] 4.0 mmol/L Normal 3.5-5.1 [facility] Comment on above: Performed By: #### L IPID, BMP #### [facility] [address] [place] [address] [place] Sodium [Moles/Vol] 140 mmol/L Normal 136-145 [facility] Comment on above: Performed By: #### L IPID, BMP #### [facility] [address] [place] [address] [place] Urea nitrogen [Mass/Vol] 10 mg/dL Normal 7-25 [facility] Comment on above: Performed By: #### L IPID, BMP #### [facility] [address] [place] [address] [place] Calcium [Mass/volume] in Ser um or PlasmaOrdered By: Dedrick Fuller on 08-15-2023 Calcium [Mass/Vol] 9.1 mg/dL 8.6-10.3 [facility] Carbon dioxide, total [Moles /volume] in Serum or PlasmaOrdered By: Dedrick Fuller on 08-15-2023 CO2 [Moles/Vol] 26.7 mmol/L 21.0-31.0 [facility] Chloride [Moles/volume] in S altagracia or PlasmaOrdered By: Dedrick Fuller on 08-15-2023 Chloride [Moles/Vol] 107 mmol/L 98-107 [facility] Cholesterol [Mass/volume] in Serum or PlasmaOrdered By: Dedrick Fuller on 08-15-2023 Cholesterol [Mass/Vol] 166 mg/dL 140-[address] [facility] Comment on above: Chol less than 200 m g/dl low riskChol 201-239 mg/dl borderline riskChol 240 mg/dl and greater high risk Cholesterol in LDL Calc [Mas s/Vol]Ordered By: Dedrick Fuller on 08-15-2023 Cholesterol in LDL [Mass/Vol] 95 mg/dL 0-100 [facility] Comment on above: LDL ATP III CLASSIFI CATIONLDL less than 100 mg/dL OptimalLDL 100-129 mg/dL Near or above optimalLDL 130-159 mg/dL Borderline highLDL 160-189 mg/dL HighLDL greater than 189 mg/dL Very high Cholesterol in VLDL Calc [Ma ss/Vol]Ordered By: Dedrick Fuller on 08-15-2023 Cholesterol in VLDL [Mass/Vol] 32 mg/dL [facility] Creatinine [Mass/volume] in Serum or PlasmaOrdered By: Dedrick Fuller on 08-15-2023 Creatinine [Mass/Vol] 0.77 mg/dL 0.60-1.20 [facility] Glucose [Mass/volume] in Ser um or PlasmaOrdered By: Dedrick Fuller on 08-15-2023 Glucose [Mass/Vol] 97 mg/dL 70-100 [facility] Comment on above: ADA recommended refe rence rangeRandom Glucose Reference Range is dependent on time and content of last meal. Glucose of more than 200 mg/dL in a nonstressed, ambulatory subject supports the diagnosis of Diabetes Mellitus. Lipid Panelon 08-15-2023 Cholesterol [Mass/Vol] 166 mg/dL Normal 140-[address] [facility] Comment on above: Result Comment: Chol less than 200 mg/dl low risk Chol 201-239 mg/dl borderline risk Chol 240 mg/dl and greater high risk Performed By: #### L IPID, BMP #### [address] Cholesterol in HDL [Mass/Vol] 39 mg/dL Normal 23-92 [facility] Comment on above: Result Comment: HDL CHOL ATP-III CLASSIFICATION Cardiovascular Risk HDL > or equal to 60 mg/dL LOW HDL < 40 mg/dL HIGH Performed By: #### L IPID, BMP #### [facility] [address] [place] [address] Cholesterol.total/Mirta sterol in HDL [Mass ratio] 4.3 {ratio} Normal <5.0 [facility] Comment on above: Result Comment: PERF ORMED BY: [place] [id number] PATHOLOGIST LACE MENDER IRMA MARCELO M.D. Performed By: #### L IPID, BMP #### [facility] [address] [place] [address] LDL Cholesterol,Calculated 95 mg/dL Normal 0-100 [facility] Comment on above: Result Comment: LDL ATP III CLASSIFICATION LDL less than 100 mg/dL Optimal LDL 100-129 mg/dL Near or above optimal LDL 130-159 mg/dL Borderline high LDL 160-189 mg/dL High LDL greater than 189 mg/dL Very high Performed By: #### L IPID, BMP #### [facility] [address] [place] [address] Triglyceride w/Reflex 162 mg/dL High 0-149 [facility] Comment on above: Result Comment: TRIG ATP III CLASSIFICATION TRIG less than 150 mg/dL Normal TRIG 150-199 mg/dL Borderline high TRIG 200-500 mg/dL High TRIG greater than 500 mg/dL Very high Standard traceable to the Center for Disease Conrtrol and Prevention (CDC) test method. Performed By: #### L IPID, BMP #### [facility] [address] [place] [address] VLDL CHOLESTEROL 32 mg/dL Normal [facility] Comment on above: Performed By: #### L IPID, BMP #### [facility] [address] [place] [address] No Panel InformationOrdered By: Dedrick Fuller on 08-15-2023 Estimated GFR (CKD-EPI) > 60.0 mL/Min [facility] Creatinine Clearance (Chem N/A [facility] Potassium [Moles/volume] in Serum or PlasmaOrdered By: Dedrick Fuller on 08-15-2023 Potassium [Moles/Vol] 4.0 mmol/L 3.5-5.1 [facility] Serum or plasma anion gap de terminationOrdered By: Dedrick Fuller on 08-15-2023 Anion gap [Moles/Vol] 10.3 mmol/L 6.0-15.[address] [facility] Serum or plasma high density lipoprotein (HDL) cholesterol measurementOrdered By: Dedrick Fuller on 08-15-2023 Cholesterol in HDL [Mass/Vol] 39 mg/dL 23-92 [facility] Comment on above: HDL CHOL ATP-III CLA SSIFICATION Cardiovascular RiskHDL > or equal to 60 mg/dL LOWHDL < 40 mg/dL HIGH Serum or plasma total choles terol/high density lipoprotein (HDL) cholesterol mass ratOrdered By: Dedrick Fuller on 08-15-2023 Cholesterol.total/Mirta sterol in HDL [Mass ratio] 4.3 {ratio} <5.0 [facility] Sodium [Moles/volume] in Ser um or PlasmaOrdered By: Dedrick Fuller on 08-15-2023 Sodium [Moles/Vol] 140 mmol/L 136-145 [facility] Triglyceride [Mass/volume] i n Serum or PlasmaOrdered By: Dedrick Fuller on 08-15-2023 Triglyceride [Mass/Vol] 162 mg/dL 0-149 [facility] Comment on above: TRIG ATP III CLASSIF ICATIONTRIG less than 150 mg/dL NormalTRIG 150-199 mg/dL Borderline highTRIG 200-500 mg/dL High TRIG greater than 500 mg/dL Very highStandard traceable to the Center for Disease Conrtrol and Prevention (CDC) test method. Urea nitrogen [Mass/volume] in Serum or PlasmaOrdered By: Dedrick Fuller on 08-15-2023 Urea nitrogen [Mass/Vol] 10 mg/dL 7- [facility] GTT 2 HRon 11-09-2022 Glucose [Mass/Vol] 107 mg/dL Critically high 74-106 [facility] Comment on above: Performed By: #### U LG, CRP #### [facility] [address] [place] [address] Dr. Soo Donnelly Glucose [Mass/Vol] 152 mg/dL Normal [facility] Comment on above: Performed By: #### U LG, CRP #### [facility] [address] [address] [address] Soo Donnelly Glucose [Mass/Vol] 121 mg/dL Normal [facility] Comment on above: Performed By: #### U LG, CRP #### [facility] [address] [address] [address] Soo Donnelly Facesheeton 11-05-2022 Facesheet [id number]:127 Normal [facility] Physician Referralon 022 Physician Referral [id number]:[address] [facility] [address] ABD/PELV W CONon 10-01-20 CT [...] ELENA SAUCEDA Date: 2022-10-01 10:31 Normal [facility] CBC AUTO DIFFon 09-18-2022 BASO # 0.0 103/ul Normal 0.0-0.1 [facility] Comment on above: Performed By: #### A NAD #### [facility] [address] [address] [address] Soo Donnelly Basophils/100 WBC (Bld) 0.4 % Normal 0.2-2.0 [facility] Comment on above: Performed By: #### A NAD #### [facility] [address] [address] [address] Soo Donnelly EO # 0.1 103/ul Normal 0.0-0.7 [facility] Comment on above: Performed By: #### A NAD #### [facility] [address] [address] [address] Soo Donnelly Eosinophils/100 WBC (Bld) 1.8 % Normal 0.9-7.0 [facility] Comment on above: Performed By: #### A NAD #### [facility] [address] [address] [address] Soo Donnelly Erythrocyte distribution width (RBC) [Ratio] 11.9 % Normal 11.0-15.0 [facility] Comment on above: Performed By: #### A NAD #### [facility] [address] [address] [address] Soo Donnelly Hematocrit (Bld) [Volume fraction] 43.9 % Normal 36.0-48.0 [facility] Comment on above: Performed By: #### A NAD #### [facility] [address] [address] [address] Soo Donnelly Hemoglobin (Bld) [Mass/Vol] 14.6 g/dL Normal 12.0-16.0 [facility] Comment on above: Performed By: #### A NAD #### [facility] [address] [place] [address] Dr. Soo Donnelly IG # 0.01 10e3/ul Normal 0.00-0.03 [facility] Comment on above: Performed By: #### A NAD #### [facility] [address] [place] [address] Dr. Soo Donnelly IG % 0.1 % Normal 0.0-0.5 [facility] Comment on above: Performed By: #### A NAD #### [facility] [address] [place] [address] Dr. Soo Donnelly LYMPH # 2.7 103/ul Normal 1.2-3.8 [facility] Comment on above: Performed By: #### A NAD #### [facility] [address] [place] [address] Dr. Soo Donnelly Lymphocytes/100 WBC (Bld) 39.9 % Normal 20.5-60.0 [facility] Comment on above: Performed By: #### A NAD #### [facility] [address] [place] [address] Dr. Soo Donnelly MANUAL DIFF REQ NO Normal [facility] Comment on above: Performed By: #### A NAD #### [facility] [address] [place] [address] Dr. Soo Donnelly MCH (RBC) [Entitic mass] 31.7 pg Normal 26.7-34.0 [facility] Comment on above: Performed By: #### A NAD #### [facility] [address] [place] [address] Dr. Soo Donnelly MCHC (RBC) [Mass/Vol] 33.3 g/dL Normal 29.9-35.2 [facility] Comment on above: Performed By: #### A NAD #### [facility] [address] [place] [address] Dr. Soo Donnelly MCV (RBC) [Entitic vol] 95.4 fL Normal 81.0-99.0 [facility] Comment on above: Performed By: #### A NAD #### [facility] [address] [place] [address] Dr. Soo Donnelly MONO # 0.4 103/ul Normal 0.3-0.8 [facility] Comment on above: Performed By: #### A NAD #### [facility] [address] [place] [address] Dr. Soo Donnelly Monocytes/100 WBC (Bld) 5.9 % Normal 1.7-12.0 [facility] Comment on above: Performed By: #### A NAD #### [facility] [address] [place] [address] Dr. Soo Donnelly NEUT # 3.5 103/ul Normal 1.4-6.5 [facility] Comment on above: Performed By: #### A NAD #### [facility] [address] [place] [address] Dr. Soo Donnelly Neutrophils/100 WBC (Bld) 51.9 % Normal 43.0-75.0 [facility] Comment on above: Performed By: #### A NAD #### [facility] [address] [place] [address] Dr. Soo Donnelly Platelet mean volume (Bld) [Entitic vol] 10.8 fL Normal 9.5-13.5 [facility] Comment on above: Performed By: #### A NAD #### [facility] [address] [place] [address] Dr. Soo Donnelly PLT 220 103/ul Normal 150-450 [facility] Comment on above: Performed By: #### A NAD #### [facility] [address] [place] [address] Dr. Soo Donnelly RBC 4.60 106/ul Normal 4.20-5.40 [facility] Comment on above: Performed By: #### A NAD #### [facility] [address] [place] [address] Dr. Soo Donnelly WBC 6.8 103/ul Normal 4.0-11.0 [facility] Comment on above: Performed By: #### A NAD #### [facility] [address] [place] [address] Dr. Soo CORLEY URINE PROFILEon 2 Bilirubin Ql (U) Negative Normal NEGATIVE [facility] Comment on above: Performed By: #### U LG, CRP #### [facility] [address] [place] [address] Dr. Soo Donnelly Clarity (U) CLEAR Normal CLEAR [facility] Comment on above: Performed By: #### U LG, CRP #### [facility] [address] [address] [address] Soo Donnelly Color (U) LT. YELLOW Normal YELLOW [facility] Comment on above: Performed By: #### U LG, CRP #### [facility] [address] [place] [address] Dr. Soo CORTEZ A micrscopic examination will be performed if indicated. Normal [facility] Comment on above: Performed By: #### U LG, CRP #### [facility] [address] [place] [address] Dr. Soo Donnelly Glucose Ql (U) Negative Normal NEGATIVE [facility] Comment on above: Performed By: #### U LG, CRP #### [facility] [address] [place] [address] Dr. Soo Donnelly Hemoglobin Ql (U) Negative Normal NEGATIVE [facility] Comment on above: Performed By: #### U LG, CRP #### [facility] [address] [place] [address] Dr. Soo Donnelly Ketones Ql (U) Negative Normal NEGATIVE [facility] Comment on above: Performed By: #### U LG, CRP #### [facility] [address] [place] [address] Dr. Soo Donnelly LEUKOCYTES Negative Normal NEGATIVE [facility] Comment on above: Performed By: #### U LG, CRP #### [facility] [address] [place] [address] Dr. Soo Donnelly Nitrite Ql (U) Negative Normal NEGATIVE [facility] Comment on above: Performed By: #### U LG, CRP #### [facility] [address] [place] [address] Dr. Soo Donnelly pH (U) 6.0 [pH] Normal 5-9 [facility] Comment on above: Performed By: #### U LG, CRP #### [facility] [address] [place] [address] Dr. Soo Donnelly SPEC GRAVITY 1.015 Normal 1.005-<=1.02 5 [facility] Comment on above: Performed By: #### U LG, CRP #### [facility] [address] [place] [address] Dr. Soo Donnelly UA PROTEIN Negative Normal NEGATIVE/ TRACE [facility] Comment on above: Performed By: #### U LG, CRP #### [facility] [address] [place] [address] Dr. Soo Donnelly UR MICRO IND NOT INDICATED Normal [facility] Comment on above: Performed By: #### U LG, CRP #### [facility] [address] [place] [address] Dr. Soo Donnelly Urobilinogen Qn (U) 0.2 {Roma'U}/dL Normal 0.2 - 1. 0 [facility] Comment on above: Performed By: #### U LG, CRP #### [facility] [address] [place] [address] Dr. Soo Donnelly PROF CHEM 8 (BAS METB)on Anion gap [Moles/Vol] 10.2 mmol/L Normal [facility] Comment on above: Performed By: #### B MP #### [facility] [address] [place] [address] Dr. Soo Donnelly Calcium [Mass/Vol] 8.7 mg/dL Normal 8.5-10.1 [facility] Comment on above: Performed By: #### B MP #### [facility] [address] [place] [address] Dr. Soo Donnelly Chloride [Moles/Vol] 103 mmol/L Normal 98-107 [facility] Comment on above: Performed By: #### B MP #### [facility] [address] [place] [address] Dr. Soo Donnelly CO2 [Moles/Vol] 27.9 mmol/L Normal 21.0-32.0 [facility] Comment on above: Performed By: #### B MP #### [facility] [address] [address] [address] Soo Donnelly Creatinine [Mass/Vol] 0.80 mg/dL Normal 0.55-1.02 [facility] Comment on above: Performed By: #### B MP #### [facility] [address] [address] [address] Soo Donnelly EGFR-AF CITIZ[place] >60 Normal >=60 [facility] Comment on above: Performed By: #### B MP #### [facility] [address] [address] [address] Soo Donnelly EGFR-NON AF CITIZEN OF [place] >60 Normal >=60 [facility] Comment on above: Performed By: #### B MP #### [facility] [address] [address] [address] Soo Donnelly Glucose [Mass/Vol] 103 mg/dL Normal 74-106 [facility] Comment on above: Performed By: #### B MP #### [facility] [address] [address] [address] Soo Donnelly Potassium [Moles/Vol] 4.1 mmol/L Normal 3.5-5.1 [facility] Comment on above: Performed By: #### B MP #### [facility] [address] [address] [address] Soo Donnelly Sodium [Moles/Vol] 137 mmol/L Normal 136-[address] [facility] Comment on above: Performed By: #### B MP #### [facility] [address] [address] [address] Soo Donnelly Urea nitrogen [Mass/Vol] 11.0 mg/dL Normal 7.0-18.0 [facility] Comment on above: Performed By: #### B MP #### [facility] [address] [place] [address] Dr. Soo Donnelly Urea nitrogen/Creatinine [Mass ratio] 13.8 mg/mg Normal [facility] Comment on above: Performed By: #### B #### [facility] [address] [address] [address] Soo Donnelly XR KUB 1 VIEWon [...] ELENA SAUCEDA Date: 2022-09-18 12:12 Normal [facility] MAMM SCREEN 3D DEAN CADon 09-12-2022 MAMM SCREEN 3D DEAN CAD Patient: HORACIO KEATING Exam Date: 09/12/2022 : 1975 Gender:F Ordering : DR AURA MURILLO . Admission #: [id number] Family : Order #: [id number] CLICK HERE TO VIEW EXAM RADIOLOGY REPORT [...] ovarian cancer at age 77. LOCATION: [facility] BREAST COMPOSITION: Scattered areas fibroglandular density. FINDINGS: [...] MD on 09/13/2022 at 07:46 Normal [facility] INSULINon 07-20-2022 Insulin 25.5 uIU/mL Critically high 2.6-24.9 [facility] Comment on above: Performed By: #### U LG, CRP #### [facility] [address] [place] [address] Dr. Soo Donnelly T4 LABCORPon 07-20-2022 T4 [Mass/Vol] 7.4 ug/dL Normal 4.5-12.0 [facility] Comment on above: Performed By: #### A NAD #### [facility] [address] [place] [address] Dr. Soo Donnelly CBC W MANUAL DIFFon 07-19-20 ATYPICAL LYMPH # Normal [facility] Comment on above: Performed By: #### B UN, CREA #### [facility] [address] [place] [address] Dr. Soo Donnelly ATYPICAL LYMPH % Normal [facility] Comment on above: Performed By: #### B UN, CREA #### [facility] [address] [place] [address] Dr. Soo Donnelly BAND # Normal 0.0-0.3 [facility] Comment on above: Performed By: #### B UN, CREA #### [facility] [address] [place] [address] Dr. Soo Donnelly BAND % Normal 0-5 [facility] Comment on above: Performed By: #### B UN, CREA #### [facility] [address] [place] [address] Dr. Soo Donnelly BASOM # 0.00 103/ul Normal 0.00-0.10 [facility] Comment on above: Performed By: #### B UN, CREA #### [facility] [address] [place] [address] Dr. Soo Donnelly BASOM % 0.0 % Critically low 0.2-2.0 [facility] Comment on above: Performed By: #### B UN, CREA #### [facility] [address] [place] [address] Dr. Soo Donnelly BLAST # Normal [facility] Comment on above: Performed By: #### B UN, CREA #### [facility] [address] [place] [address] Dr. Soo Donnelly BLAST % Normal [facility] Comment on above: Performed By: #### B UN, CREA #### [facility] [address] [place] [address] Dr. Soo Donnelly CORRECTED WBC Normal 4.0-11.0 [facility] Comment on above: Performed By: #### B UN, CREA #### [facility] [address] [place] [address] Dr. Soo Donnelly EOS # 0.31 103/ul Normal 0.00-0.70 [facility] Comment on above: Performed By: #### B UN, CREA #### [facility] [address] [place] [address] Dr. Soo Donnelly EOS% 2.0 % Normal 0.9-7.0 [facility] Comment on above: Performed By: #### B UN, CREA #### [facility] [address] [place] [address] Dr. Soo Donnelly HCT 41.6 % Normal 36.0-48.0 [facility] Comment on above: Performed By: #### B UN, CREA #### [facility] [address] [place] [address] Dr. Soo Donnelly HGB 13.8 g/dl Normal 12.0-16.0 [facility] Comment on above: Performed By: #### B UN, CREA #### [facility] [address] [place] [address] Dr. Soo Donnelly LYMPHM # 5.27 103/ul Critically high 1.20-3.80 [facility] Comment on above: Performed By: #### B UN, CREA #### [facility] [address] [place] [address] Dr. Soo Donnelly LYMPHM% 34.0 % Normal 20.5-60.0 [facility] Comment on above: Performed By: #### B UN, CREA #### [facility] [address] [place] [address] Dr. Soo Donnelly MCH 31.5 pg Normal 26.7-34.0 [facility] Comment on above: Performed By: #### B UN, CREA #### [facility] [address] [place] [address] Dr. Soo Donnelly MCHC 33.2 g/dl Normal 29.9-35.2 [facility] Comment on above: Performed By: #### B UN, CREA #### [facility] [address] [place] [address] Dr. Soo Donnelly MCV 95.0 fL Normal 81.0-99.0 [facility] Comment on above: Performed By: #### B UN, CREA #### [facility] [address] [place] [address] Dr. Soo Donnelly METAMYELOCYTE # Normal [facility] Comment on above: Performed By: #### B UN, CREA #### [facility] [address] [place] [address] Dr. Soo Donnelly METAMYELOCYTE % Normal [facility] Comment on above: Performed By: #### B UN, CREA #### [facility] [address] [place] [address] Dr. Soo Donnelly MONOM# 0.93 103/ul Critically high 0.30-0.80 [facility] Comment on above: Performed By: #### B UN, CREA #### [facility] [address] [place] [address] Dr. Soo Donnelly MONOM% 6.0 % Normal 1.7-12.0 [facility] Comment on above: Performed By: #### B UN, CREA #### [facility] [address] [place] [address] Dr. Soo Donnelly MPV 10.1 fL Normal 9.5-13.5 [facility] Comment on above: Performed By: #### B UN, CREA #### [facility] [address] [place] [address] Dr. Soo Donnelly MYELOCYTE # Normal [facility] Comment on above: Performed By: #### B UN, CREA #### [facility] [address] [place] [address] Dr. Soo Donnelly MYELOCYTE % Normal [facility] Comment on above: Performed By: #### B UN, CREA #### [facility] [address] [place] [address] Dr. Soo Donnelly NRBC Normal [facility] Comment on above: Performed By: #### B UN, CREA #### [facility] [address] [place] [address] Dr. Soo Donnelly PLT 260 103/ul Normal 150-450 [facility] Comment on above: Performed By: #### B UN, CREA #### [facility] [address] [place] [address] Dr. Soo Donnelly RBC 4.38 106/ul Normal 4.20-5.40 [facility] Comment on above: Performed By: #### B UN, CREA #### [facility] [address] [place] [address] Dr. Soo Donnelly RDW 12.5 % Normal 11.0-15.0 [facility] Comment on above: Performed By: #### B UN, CREA #### [facility] [address] [place] [address] Dr. Soo Donnelly SEG # 8.99 103/ul Critically high 1.40-6.50 [facility] Comment on above: Performed By: #### B UN, CREA #### [facility] [address] [place] [address] Dr. Soo Donnelly SEG % 58.0 % Normal 43.0-75.0 [facility] Comment on above: Performed By: #### B UN, CREA #### [facility] [address] [place] [address] Dr. Soo Donnelly WBC 15.5 103/ul Critically high 4.0-11.0 [facility] Comment on above: Performed By: #### B UN, CREA #### [facility] [address] [place] [address] Dr. Soo Donnelly FREE T3on 08-19-2022 FREE T3 2.62 pg/mlL Normal 2.18-3.98 [facility] Comment on above: Performed By: #### U LG, CRP #### [facility] [address] [address] [address] Soo Donnelly GLYCOHEMOGLOBIN A1Con 2021 ADA RECOMMENDATION SEE BELOW Normal [facility] Comment on above: Result Comment: ADA RECOMMENDED LIMIT 4.0 - 6.0 ADA THERAPEUTIC TARGET < 7.0 ACTION SUGGESTED > 7.0 Performed By: #### U LG, CRP #### [facility] [address] [address] [address] Soo Donnelly Glucose [Mass/Vol] 137 mg/dL Normal [facility] Comment on above: Performed By: #### U LG, CRP #### [facility] [address] [address] [address] Soo Donnelly HbA1c (Bld) [Mass fraction] 6.4 % Critically high 4.5-6.2 [facility] Comment on above: Performed By: #### U LG, CRP #### [facility] [address] [address] [address] Soo Donnelly LIPID PROFILEon 07-19-2022 CHOL-HDL RATIO NORM SEE BELOW Normal [facility] Comment on above: Result Comment: 3.3 - 4.4 LOW RISK 4.4 - 7.1 AVERAGE RISK 7.1 - 11.0 MODERATE RISK >11.0 HIGH RISK Performed By: #### U LG, CRP #### [facility] [address] [address] [address] Soo Donnelly Cholesterol [Mass/Vol] 226 mg/dL Critically high <=200 [facility] Comment on above: Performed By: #### U LG, CRP #### [facility] [address] [address] [address] Soo Donnelly Cholesterol in HDL [Mass/Vol] 33 mg/dL Critically low 40-60 [facility] Comment on above: Performed By: #### U LG, CRP #### [facility] [address] [address] [address] Soo Donnelly Cholesterol in LDL [Mass/Vol] 135.2 mg/dL Normal [facility] Comment on above: Performed By: #### U LG, CRP #### [facility] [address] [address] [address] Soo oDnnelly Cholesterol.total/Mirta sterol in HDL [Mass ratio] 6.8 {ratio} Normal [facility] Comment on above: Performed By: #### U LG, CRP #### [facility] [address] [address] [address] Soo Donnelly HDL NORMAL > or = 60 mg/dl - LO W CARDIOVASCULAR RISK <40 mg/dl - HIGH CARDIOVASCULAR RISK Normal [facility] Comment on above: Performed By: #### U LG, CRP #### [facility] [address] [address] [address] Soo Donnelly LDL CALC NORMAL SEE BELOW Normal [facility] Comment on above: Result Comment: <100 mg/dl OPTIMAL 100 - 129 mg/dl NEAR OR ABOVE OPTIMAL 130 - 159 mg/dl BORDERLINE HIGH 160 - 189 mg/dl HIGH >190 mg/dl VERY HIGH Performed By: #### U LG, CRP #### [facility] [address] [address] [address] Soo Donnelly Triglyceride [Mass/Vol] 289 mg/dL Critically high <=150 [facility] Comment on above: Performed By: #### U LG, CRP #### [facility] [address] [address] [address] Soo Donnelly VLDL CALC 57.8 mg/dL Normal [facility] Comment on above: Performed By: #### U LG, CRP #### [facility] [address] [address] [address] Soo Donnelly PROF 14(COMP METB)on 022 Albumin [Mass/Vol] 3.2 g/dL Critically low 3.4-5.0 [facility] Comment on above: Performed By: #### U LG, CRP #### [facility] [address] [address] [address] Soo Donnelly Albumin/Globulin [Mass ratio] 1.1 {ratio} Normal [facility] Comment on above: Performed By: #### U LG, CRP #### [facility] [address] [address] [address] Soo Donnelly ALP [Catalytic activity/Vol] 41 U/L Critically low 46-116 [facility] Comment on above: Performed By: #### U LG, CRP #### [facility] [address] [address] [address] Soo Donnelly ALT [Catalytic activity/Vol] 46 U/L Normal 14-59 [facility] Comment on above: Performed By: #### U LG, CRP #### [facility] [address] [address] [address] Soo Donnelly Anion gap [Moles/Vol] 9.3 mmol/L Normal [facility] Comment on above: Performed By: #### U LG, CRP #### [facility] [address] [address] [address] Soo Donnelly AST [Catalytic activity/Vol] 18 U/L Normal 15-37 [facility] Comment on above: Performed By: #### U LG, CRP #### [facility] [address] [address] [address] Soo Donnelly Bilirubin [Mass/Vol] 0.7 mg/dL Normal 0.2-1.0 [facility] Comment on above: Performed By: #### U LG, CRP #### [facility] [address] [address] [address] Soo Donnelly Calcium [Mass/Vol] 8.1 mg/dL Critically low 8.5-10.1 [facility] Comment on above: Performed By: #### U LG, CRP #### [facility] [address] [address] [address] Soo Donnelly Chloride [Moles/Vol] 101 mmol/L Normal 98-107 [facility] Comment on above: Performed By: #### U LG, CRP #### [facility] [address] [address] [address] Soo Donnelly CO2 [Moles/Vol] 31.1 mmol/L Normal 21.0-32.0 [facility] Comment on above: Performed By: #### U LG, CRP #### [facility] [address] [address] [address] Soo Donnelly Creatinine [Mass/Vol] 0.77 mg/dL Normal 0.55-1.02 [facility] Comment on above: Performed By: #### U LG, CRP #### [facility] [address] [address] [address] Soo Donnelly EGFR-AF [place]IZ[place] >60 Normal >=60 [facility] Comment on above: Performed By: #### U LG, CRP #### [facility] [address] [address] [address] Soo Donnelly EGFR-NON AF [place]IZ[place] >60 Normal >=60 [facility] Comment on above: Performed By: #### U LG, CRP #### [facility] [address] [address] [address] Soo Donnelly Globulin (S) [Mass/Vol] 3.0 g/dL Normal [facility] Comment on above: Performed By: #### U LG, CRP #### [facility] [address] [address] [address] Soo Donnelly Glucose [Mass/Vol] 104 mg/dL Normal 74-106 [facility] Comment on above: Performed By: #### U LG, CRP #### [facility] [address] [address] [address] Soo Donnelly Potassium [Moles/Vol] 3.4 mmol/L Critically low 3.5-5.1 [facility] Comment on above: Performed By: #### U LG, CRP #### [facility] [address] [address] [address] Soo Donnelly Protein [Mass/Vol] 6.2 g/dL Critically low 6.4-8.2 [facility] Comment on above: Performed By: #### U LG, CRP #### [facility] [address] [address] [address] Soo Donnelly Sodium [Moles/Vol] 138 mmol/L Normal 136-145 [facility] Comment on above: Performed By: #### U LG, CRP #### [facility] [address] [place] [address] Dr. Soo Donnelly Urea nitrogen [Mass/Vol] 16.0 mg/dL Normal 7.0-18.0 [facility] Comment on above: Performed By: #### U LG, CRP #### [facility] [address] [place] [address] Dr. Soo Donnelly Urea nitrogen/Creatinine [Mass ratio] 20.8 mg/mg Normal [facility] Comment on above: Performed By: #### U LG, CRP #### [facility] [address] [place] [address] Dr. Soo Donnelly TSHon 07-19-2022 TSH 3.262 uIU/mL Normal 0.358-3.740 [facility] Comment on above: Performed By: #### U LG, CRP #### [facility] [address] [place] [address] Dr. Soo Donnelly CBC AUTO DIFFon 05-18-2022 BASO # 0.0 103/ul Normal 0.0-0.1 [facility] Comment on above: Performed By: #### U LG, CRP #### [facility] [address] [place] [address] Dr. Soo Donnelly Basophils/100 WBC (Bld) 0.2 % Normal 0.2-2.0 [facility] Comment on above: Performed By: #### U LG, CRP #### [facility] [address] [place] [address] Dr. Soo Donnelly EO # 0.0 103/ul Normal 0.0-0.7 [facility] Comment on above: Performed By: #### U LG, CRP #### [facility] [address] [place] [address] Dr. Soo Donnelly Eosinophils/100 WBC (Bld) 0.2 % Critically low 0.9-7.0 [facility] Comment on above: Performed By: #### U LG, CRP #### [facility] [address] [place] [address] Dr. Soo Donnelly Erythrocyte distribution width (RBC) [Ratio] 12.8 % Normal 11.0-15.0 [facility] Comment on above: Performed By: #### U LG, CRP #### [facility] [address] [place] [address] Dr. Soo Donnelly Hematocrit (Bld) [Volume fraction] 35.7 % Critically low 36.0-48.0 [facility] Comment on above: Performed By: #### U LG, CRP #### [facility] [address] [place] [address] Dr. Soo Donnelly Hemoglobin (Bld) [Mass/Vol] 11.5 g/dL Critically low 12.0-16.0 [facility] Comment on above: Performed By: #### U LG, CRP #### [facility] [address] [place] [address] Dr. Soo Donnelly IG # 0.07 10e3/ul Critically high 0.00-0.03 [facility] Comment on above: Performed By: #### U LG, CRP #### [facility] [address] [place] [address] Dr. Soo Donnelly IG % 0.5 % Normal 0.0-0.5 [facility] Comment on above: Performed By: #### U LG, CRP #### [facility] [address] [place] [address] Dr. Soo Donnelly LYMPH # 4.1 103/ul Critically high 1.2-3.8 [facility] Comment on above: Performed By: #### U LG, CRP #### [facility] [address] [place] [address] Dr. Soo Donnelly Lymphocytes/100 WBC (Bld) 28.3 % Normal 20.5-60.0 [facility] Comment on above: Performed By: #### U LG, CRP #### [facility] [address] [place] [address] Dr. Soo Donnelly MANUAL DIFF REQ NO Normal [facility] Comment on above: Performed By: #### U LG, CRP #### [facility] [address] [place] [address] Dr. Soo Donnelly MCH (RBC) [Entitic mass] 31.7 pg Normal 26.7-34.0 [facility] Comment on above: Performed By: #### U LG, CRP #### [facility] [address] [place] [address] Dr. Soo Donnelly MCHC (RBC) [Mass/Vol] 32.2 g/dL Normal 29.9-35.2 [facility] Comment on above: Performed By: #### U LG, CRP #### [facility] [address] [place] [address] Dr. Soo Donnelly MCV (RBC) [Entitic vol] 98.3 fL Normal 81.0-99.0 [facility] Comment on above: Performed By: #### U LG, CRP #### [facility] [address] [place] [address] Dr. Soo Donnelly MONO # 0.8 103/ul Normal 0.3-0.8 [facility] Comment on above: Performed By: #### U LG, CRP #### [facility] [address] [place] [address] Dr. Soo Donnelly Monocytes/100 WBC (Bld) 5.6 % Normal 1.7-12.0 [facility] Comment on above: Performed By: #### U LG, CRP #### [facility] [address] [place] [address] Dr. Soo Donnelly NEUT # 9.4 103/ul Critically high 1.4-6.5 [facility] Comment on above: Performed By: #### U LG, CRP #### [facility] [address] [place] [address] Dr. Soo Donnelly Neutrophils/100 WBC (Bld) 65.2 % Normal 43.0-75.0 [facility] Comment on above: Performed By: #### U LG, CRP #### [facility] [address] [place] [address] Dr. Soo Donnelly Platelet mean volume (Bld) [Entitic vol] 10.8 fL Normal 9.5-13.5 [facility] Comment on above: Performed By: #### U LG, CRP #### [facility] [address] [address] [address] Soo Donnelly PLT 191 103/ul Normal 150-450 [facility] Comment on above: Performed By: #### U LG, CRP #### [facility] [address] [address] [address] Soo Donnelly RBC 3.63 106/ul Critically low 4.20-5.40 [facility] Comment on above: Performed By: #### U LG, CRP #### [facility] [address] [address] [address] Soo Donnelly WBC 14.4 103/ul Critically high 4.0-11.0 [facility] Comment on above: Performed By: #### U LG, CRP #### [facility] [address] [place] [address] Dr. Soo Donnelly BUNon 05-17-2022 Urea nitrogen [Mass/Vol] 8.0 mg/dL Normal 7.0-18.0 [facility] Comment on above: Performed By: #### B UN, CREA #### [facility] [address] [address] [address] Soo Donnelly CBC AUTO DIFFon 05-17-2022 BASO # 0.0 103/ul Normal 0.0-0.1 [facility] Comment on above: Performed By: #### U LG, CRP #### [facility] [address] [address] [address] Soo Donnelly Basophils/100 WBC (Bld) 0.1 % Critically low 0.2-2.0 [facility] Comment on above: Performed By: #### U LG, CRP #### [facility] [address] [address] [address] Soo Donnelly EO # 0.0 103/ul Normal 0.0-0.7 [facility] Comment on above: Performed By: #### U LG, CRP #### [facility] [address] [address] [address] Soo Donnelly Eosinophils/100 WBC (Bld) 0.0 % Critically low 0.9-7.0 [facility] Comment on above: Performed By: #### U LG, CRP #### [facility] [address] [place] [address] Dr. Soo Donnelly Erythrocyte distribution width (RBC) [Ratio] 12.5 % Normal 11.0-15.0 [facility] Comment on above: Performed By: #### U LG, CRP #### [facility] [address] [place] [address] Dr. Soo Donnelly Hematocrit (Bld) [Volume fraction] 38.5 % Normal 36.0-48.0 [facility] Comment on above: Performed By: #### U LG, CRP #### [facility] Laboratory [address] [place] [address] Dr. Soo Donnelly Hemoglobin (Bld) [Mass/Vol] 13.0 g/dL Normal 12.0-16.0 [facility] Comment on above: Performed By: #### U LG, CRP #### [facility] [address] [place] [address] Dr. Soo Donnelly IG # 0.16 10e3/ul Critically high 0.00-0.03 [facility] Comment on above: Performed By: #### U LG, CRP #### [facility] [address] [place] [address] Dr. Soo Donnelly IG % 0.7 % Critically high 0.0-0.5 [facility] Comment on above: Performed By: #### U LG, CRP #### [facility] [address] [place] [address] Dr. Soo Donnelly LYMPH # 3.0 103/ul Normal 1.2-3.8 [facility] Comment on above: Performed By: #### U LG, CRP #### [facility] [address] [place] [address] Dr. Soo Donnelly Lymphocytes/100 WBC (Bld) 12.2 % Critically low 20.5-60.0 [facility] Comment on above: Performed By: #### U LG, CRP #### [facility] [address] [place] [address] Dr. Soo Donnelly MANUAL DIFF REQ NO Normal [facility] Comment on above: Performed By: #### U LG, CRP #### [facility] [address] [place] [address] Dr. Soo Donnelly MCH (RBC) [Entitic mass] 32.4 pg Normal 26.7-34.0 [facility] Comment on above: Performed By: #### U LG, CRP #### [facility] [address] [place] [address] Dr. Soo Donnelly MCHC (RBC) [Mass/Vol] 33.8 g/dL Normal 29.9-35.2 [facility] Comment on above: Performed By: #### U GL, CRP #### [facility] [address] [place] [address] Dr. Soo Donnelly MCV (RBC) [Entitic vol] 96.0 fL Normal 81.0-99.0 [facility] Comment on above: Performed By: #### U LG, CRP #### [facility] [address] [place] [address] Dr. Soo Donnelly MONO # 1.3 103/ul Critically high 0.3-0.8 [facility] Comment on above: Performed By: #### U LG, CRP #### [facility] [address] [place] [address] Dr. Soo Donnelly Monocytes/100 WBC (Bld) 5.4 % Normal 1.7-12.0 [facility] Comment on above: Performed By: #### U LG, CRP #### [facility] [address] [place] [address] Dr. Soo Donnelly NEUT # 19.8 103/ul Critically high 1.4-6.5 [facility] Comment on above: Performed By: #### U LG, CRP #### [facility] [address] [place] [address] Dr. Soo Donnelly Neutrophils/100 WBC (Bld) 81.6 % Critically high 43.0-75.0 [facility] Comment on above: Performed By: #### U LG, CRP #### [facility] [address] [place], [place] [id number] Dr. Soo Donnelly Platelet mean volume (Bld) [Entitic vol] 10.5 fL Normal 9.5-13.5 [facility] Comment on above: Performed By: #### U LG, CRP #### [facility] [address] [address] [address] Soo Donnelly PLT 253 103/ul Normal 150-450 [facility] Comment on above: Performed By: #### U LG, CRP #### [facility] [address] [address] [address] Soo Donnelly RBC 4.01 106/ul Critically low 4.20-5.40 [facility] Comment on above: Performed By: #### U LG, CRP #### [facility] [address] [place] [address] Dr. Soo Donnelly WBC 24.3 103/ul Critically high 4.0-11.0 [facility] Comment on above: Performed By: #### U LG, CRP #### [facility] [address] [place] [address] Dr. Soo Donnelly BASO # 0.0 103/ul Normal 0.0-0.1 [facility] Comment on above: Performed By: #### U LG, CRP #### [facility] [address] [place] [address] Dr. Soo Donnelly Basophils/100 WBC (Bld) 0.1 % Critically low 0.2-2.0 [facility] Comment on above: Performed By: #### U LG, CRP #### [facility] [address] [place] [address] Dr. Soo Donnelly EO # 0.0 103/ul Normal 0.0-0.7 [facility] Comment on above: Performed By: #### U LG, CRP #### [facility] [address] [place] [address] Dr. Soo Donnelly Eosinophils/100 WBC (Bld) 0.0 % Critically low 0.9-7.0 [facility] Comment on above: Performed By: #### U LG, CRP #### [facility] [address] [address] [address] Soo Donnelly Erythrocyte distribution width (RBC) [Ratio] 12.3 % Normal 11.0-15.0 [facility] Comment on above: Performed By: #### U LG, CRP #### [facility] [address] [place] [address] Dr. Soo Donnelly Hematocrit (Bld) [Volume fraction] 41.2 % Normal 36.0-48.0 [facility] Comment on above: Performed By: #### U LG, CRP #### [facility] [address] [place] [address] Dr. Soo Donnelly Hemoglobin (Bld) [Mass/Vol] 13.5 g/dL Normal 12.0-16.0 [facility] Comment on above: Performed By: #### U LG, CRP #### [facility] [address] [place] [address] Dr. Soo Donnelly IG # 0.11 10e3/ul Critically high 0.00-0.03 [facility] Comment on above: Performed By: #### U LG, CRP #### [facility] [address] [place] [address] Dr. Soo Donnelly IG % 0.5 % Normal 0.0-0.5 [facility] Comment on above: Performed By: #### U LG, CRP #### [facility] [address] [place] [address] Dr. Soo Donnelly LYMPH # 1.6 103/ul Normal 1.2-3.8 [facility] Comment on above: Performed By: #### U LG, CRP #### [facility] [address] [place] [address] Dr. Soo Donnelly Lymphocytes/100 WBC (Bld) 7.8 % Critically low 20.5-60.0 [facility] Comment on above: Performed By: #### U LG, CRP #### [facility] [address] [place] [address] Dr. Soo Donnelly MANUAL DIFF REQ NO Normal [facility] Comment on above: Performed By: #### U LG, CRP #### [facility] [address] [address] [address] Soo Donnelly MCH (RBC) [Entitic mass] 31.8 pg Normal 26.7-34.0 [facility] Comment on above: Performed By: #### U LG, CRP #### [facility] [address] [place] [address] Dr. Soo Donnelly MCHC (RBC) [Mass/Vol] 32.8 g/dL Normal 29.9-35.2 [facility] Comment on above: Performed By: #### U LG, CRP #### [facility] [address] [place] [address] Dr. Soo Donnelly MCV (RBC) [Entitic vol] 96.9 fL Normal 81.0-99.0 [facility] Comment on above: Performed By: #### U LG, CRP #### [facility] [address] [place] [address] Dr. Soo Donnelly MONO # 0.4 103/ul Normal 0.3-0.8 [facility] Comment on above: Performed By: #### U LG, CRP #### [facility] [address] [place] [address] Dr. Soo Donnelly Monocytes/100 WBC (Bld) 2.0 % Normal 1.7-12.0 [facility] Comment on above: Performed By: #### U LG, CRP #### [facility] [address] [place] [address] Dr. Soo Donnelly NEUT # 18.1 103/ul Critically high 1.4-6.5 [facility] Comment on above: Performed By: #### U LG, CRP #### [facility] [address] [place] [address] Dr. Soo Donnelly Neutrophils/100 WBC (Bld) 89.6 % Critically high 43.0-75.0 [facility] Comment on above: Performed By: #### U LG, CRP #### [facility] [address] [place] [address] Dr. Soo Donnelly Platelet mean volume (Bld) [Entitic vol] 11.0 fL Normal 9.5-13.5 [facility] Comment on above: Performed By: #### U LG, CRP #### [facility] [address] [address] [address] Soo Donnelly PLT 223 103/ul Normal 150-450 [facility] Comment on above: Performed By: #### U LG, CRP #### [facility] [address] [address] [address] Soo Donnelly RBC 4.25 106/ul Normal 4.20-5.40 [facility] Comment on above: Performed By: #### U LG, CRP #### [facility] [address] [address] [address] Soo Donnelly WBC 20.2 103/ul Critically high 4.0-11.0 [facility] Comment on above: Performed By: #### U LG, CRP #### [facility] [address] [place] [address] Dr. Soo Donnelly CREATININEon 05-17-2022 Creatinine [Mass/Vol] 0.97 mg/dL Normal 0.55-1.02 [facility] Comment on above: Performed By: #### B UN, CREA #### [facility] [address] [place] [address] Dr. Soo Donnelly EGFR-AF CITIZEN OF [place] >60 Normal >=60 [facility] Comment on above: Performed By: #### B UN, CREA #### [facility] [address] [place] [address] Dr. Soo Donnelly EGFR-NON AF CITIZEN OF [place] >60 Normal >=60 [facility] Comment on above: Performed By: #### B UN, CREA #### [facility] [address] [place] [address] Dr. Soo Donnelly CTA CHEST WO W [...] LUZ ELENA SAUCEDA Date: 2022-05-17 16:40 Normal [facility] XR CHEST 2 Von 05-17-2022 XR [...] by: SAMI JONES Date: 2022-05-17 16:10 Normal [facility] CBC AUTO DIFFon 05-16-2022 BASO # 0.1 103/ul Normal 0.0-0.1 [facility] Comment on above: Performed By: #### B JOANNA CREA #### [facility] [address] [address] [address] Soo Donnelly Basophils/100 WBC (Bld) 0.5 % Normal 0.2-2.0 [facility] Comment on above: Performed By: #### B JOANNA CREA #### [facility] [address] [address] [address] Soo Donnelly EO # 0.1 103/ul Normal 0.0-0.7 [facility] Comment on above: Performed By: #### B UN, CREA #### [facility] [address] [place] [address] Dr. Soo Donnelly Eosinophils/100 WBC (Bld) 1.0 % Normal 0.9-7.0 [facility] Comment on above: Performed By: #### B UN, CREA #### [facility] [address] [place] [address] Dr. Soo Donnelly Erythrocyte distribution width (RBC) [Ratio] 12.2 % Normal 11.0-15.0 [facility] Comment on above: Performed By: #### B UN, CREA #### [facility] [address] [place] [address] Dr. Soo Donnelly Hematocrit (Bld) [Volume fraction] 41.2 % Normal 36.0-48.0 [facility] Comment on above: Performed By: #### B UN, CREA #### [facility] [address] [place] [address] Dr. Soo Donnelly Hemoglobin (Bld) [Mass/Vol] 13.9 g/dL Normal 12.0-16.0 [facility] Comment on above: Performed By: #### B UN, CREA #### [facility] [address] [place] [address] Dr. Soo Donnelly IG # 0.04 10e3/ul Critically high 0.00-0.03 [facility] Comment on above: Performed By: #### B UN, CREA #### [facility] [address] [place] [address] Dr. Soo Donnelly IG % 0.4 % Normal 0.0-0.5 [facility] Comment on above: Performed By: #### B UN, CREA #### [facility] [address] [place] [address] Dr. Soo Donnelly LYMPH # 3.5 103/ul Normal 1.2-3.8 [facility] Comment on above: Performed By: #### B UN, CREA #### [facility] [address] [place] [address] Dr. Soo Donnelly Lymphocytes/100 WBC (Bld) 35.3 % Normal 20.5-60.0 [facility] Comment on above: Performed By: #### B UN, CREA #### [facility] [address] [place] [address] Dr. Soo Donnelly MANUAL DIFF REQ NO Normal [facility] Comment on above: Performed By: #### B UN, CREA #### [facility] [address] [place] [address] Dr. Soo Donnelly MCH (RBC) [Entitic mass] 31.7 pg Normal 26.7-34.0 [facility] Comment on above: Performed By: #### B UN, CREA #### [facility] [address] [place] [address] Dr. Soo Donnelly MCHC (RBC) [Mass/Vol] 33.7 g/dL Normal 29.9-35.2 [facility] Comment on above: Performed By: #### B UN, CREA #### [facility] [address] [place] [address] Dr. Soo Donnelly MCV (RBC) [Entitic vol] 94.1 fL Normal 81.0-99.0 [facility] Comment on above: Performed By: #### B UN, CREA #### [facility] [address] [place] [address] Dr. Soo Donnelly MONO # 0.5 103/ul Normal 0.3-0.8 [facility] Comment on above: Performed By: #### B UN, CREA #### [facility] [address] [place] [address] Dr. Soo Donnelly Monocytes/100 WBC (Bld) 5.4 % Normal 1.7-12.0 [facility] Comment on above: Performed By: #### B UN, CREA #### [facility] [address] [place] [address] Dr. Soo Donnelly NEUT # 5.6 103/ul Normal 1.4-6.5 [facility] Comment on above: Performed By: #### B UN, CREA #### [facility] [address] [place] [address] Dr. Soo Donnelly Neutrophils/100 WBC (Bld) 57.4 % Normal 43.0-75.0 [facility] Comment on above: Performed By: #### B UN, CREA #### [facility] [address] [address] [address] Soo Donnelly Platelet mean volume (Bld) [Entitic vol] 10.3 fL Normal 9.5-13.5 [facility] Comment on above: Performed By: #### B UN, CREA #### [facility] [address] [place] [address] Dr. Soo Donnelly PLT 235 103/ul Normal 150-450 [facility] Comment on above: Performed By: #### B UN, CREA #### [facility] [address] [place] [address] Dr. Soo Donnelly RBC 4.38 106/ul Normal 4.20-5.40 [facility] Comment on above: Performed By: #### B UN, CREA #### [facility] [address] [place] [address] Dr. Soo Donnelly WBC 9.8 103/ul Normal 4.0-11.0 [facility] Comment on above: Performed By: #### B UN, CREA #### [facility] [address] [place] [address] Dr. Soo Donnelly PREG QUANT HCGon 05-16-2022 HCG QUANT <1 Normal [facility] Comment on above: Performed By: #### U LG, CRP #### [facility] [address] [place] [address] Dr. oSo Donnelly HCG RANGE SEE BELOW Normal [facility] Comment on above: Result Comment: 5-50 0-1 WEEK 40-300 1-2 WEEKS 100-1,000 2-3 WEEKS 500-6,000 3-4 WEEKS 5,000-200,000 1-2 MONTHS 10,000-100,000 2-3 MONTHS 3,000-50,000 2ND TRIMESTER 1,000-50,000 3RD TRIMESTER Performed By: #### U LG, CRP #### [facility] [address] [place] [address] Dr. Soo Donnelly Covid-19 PCR (CVDTBH)on 05-01 SARS-CoV-2 (COVID-19) RNA NOLA+probe Ql (Unsp spec) Not detected Normal NOT DETECTED [facility] Comment on above: Result Comment: This test is not yet approved or cleared by the [place] FDA. When there are no FDA-approved or cleared tests available, and other criteria are met, FDA can make tests available under an emergency access mechanism called an Emergency Use Authorization (EUA). The EUA for this test is supported by the [place] of Health and Human Service's (HHS's) declaration [...] SARS-CoV-2. Performed By: #### C VDTBH #### [facility] [address] [place] [address] Dr. Soo Donnelly TYPE AND SCREENon 05-13-2022 TYPE AND SCREEN Negative Normal [facility] Comment on above: Performed By: #### B UN, CREA #### [facility] [address] [place] [address] Dr. Soo Donnelly PAP ACOG PANEL 2: 30 to 65on 05-07-2022 . . Normal [facility] Comment on above: Result Comment: Perf ormed at: WB Performed By: #### [id number] #### [facility] [address] [place] [address] Dr. Soo Donnelly Age Gdln ACOG Testing 30-65 [facility] Comment on above: Performed By: #### [id number] #### [facility] [address] [place] [address] Dr. Soo Donnelly DIAGNOSIS: Comment Normal [facility] Comment on above: Result Comment: NEGA TIVE FOR INTRAEPITHELIAL LESION OR MALIGNANCY. Performed at: WB Performed By: #### [id number] #### [facility] [address] [place] [address] Dr. Soo Donnelly HPV Aptima Negative Normal Negative [facility] Comment on above: Result Comment: This nucleic acid amplification test detects fourteen high-risk HPV types (16,18,31,33,35,39,45,51,52,56,58,59,66,68) without differentiation. Performed at: =G Performed By: #### [id number] #### [facility] [address] [place] [address] Dr. Soo Donnelly Methodology: Comment Normal [facility] Comment on above: Result Comment: This liquid based ThinPrep(R) pap test was screened with the use of an image guided system. Performed at: WB Performed By: #### [id number] #### [facility] [address] [place] [address] Dr. Soo Donnelly Note: Comment Normal [facility] Comment on above: Result Comment: The Pap smear is a screening test designed to aid in the detection of premalignant and malignant conditions of the uterine cervix. It is not a diagnostic procedure and should not be used as the sole means of detecting cervical cancer. Both false-positive and false-negative reports do occur. . Performed at: WB Performed By: #### [id number] #### [facility] [address] [place] [address] Dr. Soo Donnelly Performed by: Comment Normal [facility] Comment on above: Result Comment: Angel Rod, [employer] Professional (ASCP) Performed at: WB Performed By: #### [id number] #### [facility] [address] [place] [address] Dr. Soo Donnelly Specimen adequacy: Comment Normal [facility] Comment on above: Result Comment: Sati sfactory for evaluation. Endocervical and/or squamous metaplastic cells (endocervical component) are present. Performed at: WB Performed By: #### [id number] #### [facility] [address] [place] [address] Dr. Soo Donnelly ROSS by IFAon 02-21-2022 Antinuclear Antibodies, IFA Negative Normal [facility] Comment on above: Result Comment: Nega tive <1:80 Borderline 1:80 Positive >1:80 ICAP nomenclature: [id number] For more information about Hep-2 cell patterns use ANApatterns.org, the official website for the International Consensus on Antinuclear Antibody (ROSS) Patterns (ICAP). Performed By: #### U LG, CRP #### [facility] [address] [address] [address] Soo Donnelly ROSS DIRECTon 02-20-2022 ROSS Direct Negative Normal Negative [facility] Comment on above: Performed By: #### A NAD #### [facility] [address] [place] [address] Dr. Soo Donnelly ANTISTREPTOLYSIN O AB (ASO)o n 02-20-2022 Antistreptolysin O Ab 115.3 IU/mL Normal 0.0-200.0 [facility] Comment on above: Performed By: #### B UN, CREA #### [facility] [address] [address] [address] Soo Donnelly C3 and C4 COMPLEMENTon 02-20 Complement C3, Serum 137 mg/dL Normal 82-167 [facility] Comment on above: Performed By: #### U LG, CRP #### [facility] [address] [place] [address] Dr. Soo Donnelly Complement C4, Serum 23 mg/dL Normal 12-38 [facility] Comment on above: Performed By: #### U LG, CRP #### [facility] [address] [address] [address] Soo Donnelly SLE PROFILE Aon 02-20-2022 Anti-DNA (DS) Ab Qn <1 Normal 0-9 [facility] Comment on above: Result Comment: Nega tive <5 Equivocal 5 - 9 Positive >9 Performed By: #### S YARI #### [facility] [address] [address] [address] Soo Donnelly Antichromatin Antibodies <0.2 Normal 0.0-0.9 [facility] Comment on above: Performed By: #### S YARI #### [facility] [address] [place] [address] Dr. Soo Donnelly RA Latex Turbid. <10.0 Normal <14.0 [facility] Comment on above: Performed By: #### S YARI #### [facility] [address] [place] [address] Dr. Soo Donnelly SIGNS CLEANER Antibodies <0.2 Normal 0.0-0.9 [facility] Comment on above: Performed By: #### S YARI #### [facility] [address] [place] [address] Dr. Soo Abelogrdaniela's Anti-SS-A <0.2 Normal 0.0-0.9 [facility] Comment on above: Performed By: #### S YARI #### [facility] [address] [place] [address] Dr. Soo Abelogrdaniela'neel Anti-SS-B <0.2 Normal 0.0-0.9 [facility] Comment on above: Performed By: #### S YARI #### [facility] [address] [place] [address] Dr. Soo Donnelly Spann Antibodies <0.2 Normal 0.0-0.9 [facility] Comment on above: Performed By: #### S YARI #### [facility] [address] [place] [address] Dr. Soo Donnelly CRPon 02-19-2022 CRP [Mass/Vol] mg/L Normal <=1.0 [facility] Comment on above: Performed By: #### U LG, CRP #### [facility] [address] [place] [address] Dr. Soo Donnelly URIC ACID SERUMon 02-19-2022 Urate [Mass/Vol] 4.7 mg/dL Normal 2.5-6.2 [facility] Comment on above: Performed By: #### U LG, CRP #### [facility] [address] [place] [address] Dr. Soo Donnelly XR CSPINE MIN 4 [...] ABIGAIL SHEEHAN Date: 2022-02-19 16:33 Normal [facility] XR HAND DEAN MIN 3Von 022 XR [...] ABIGAIL SHEEHAN Date: 2022-02-19 16:28 Normal [facility] ASYMPTOMATIC COVID-19 ANTIGE Non 12-04-2021 EUA Statement SEE BELOW Normal [facility] Comment on above: Result Comment: This test [...] sooner. Performed By: #### C VDAGA #### [facility] [address] [place] [id number] Soo Donnelly SARS-CoV-2 (COVID-19) RNA NOLA+probe Ql (Unsp spec) Negative Normal NEGATIVE [facility] Comment on above: Result Comment: Nega tive results are presumptive. They do not preclude infection and should not be used as the sole basis for treatment decisions. Additional confirmatory testing by a molecular method should be considered. Performed By: #### C VDAGA #### [facility] [address] [place] [id number] Soo Donnelly Covid-19 PCR (CVDTB)on SARS-CoV-2 (COVID-19) RNA NOLA+probe Ql (Unsp spec) Not detected Normal NOT DETECTED [facility] Comment on above: Result Comment: This test is not yet approved or cleared by the [place] FDA. When there are no FDA-approved or cleared tests available, and other criteria are met, FDA can make tests available under an emergency access mechanism called an Emergency Use Authorization (EUA). The EUA for this test is supported by the [place] of Health and Human Service's (HHS's) declaration [...] Performed By: #### U LG, CRP #### [facility] [address] [place] [id number] Soo Donnelly Vital Signs Date Time Vital Sign Value Performing Clinician Facility 11-01-2022 15:19-0500 Blood Pressure Location [facility] [place] 11-01-2022 15:19-0500 Diastolic blood pressure 80 mm[Hg] Nicola NILL [facility] 11-01-2022 15:19-0500 Heart rate 72 /min Nicola NILL [facility] 11-01-2022 15:19-0500 Respiratory rate 16 /min Nicola NILL [facility] 11-01-2022 15:19-0500 Systolic blood pressure 118 mm[Hg] Nicola NILL [facility] 10-01-2022 16:30-0400 Body height 170.18 cm Clarice Scally Other [facility] Other 10-01-2022 16:30-0400 Body mass index (BMI) [Ratio] 32.84 kg/m2 Clarice Scally Other [facility] Other 10-01-2022 16:30-0400 Body weight 95.12 kg Clarice Scally Other [facility] Other 10-01-2022 16:30-0400 Diastolic blood pressure 82 mm[Hg] Clarice Scally Other [facility] Other 10-01-2022 16:30-0400 Respiratory rate 18 /min Clarice Scally Other [facility] Other 10-01-2022 16:30-0400 SaO2% (BldA) [Mass fraction] 97 % Clarice Scally Other [facility] Other 10-01-2022 16:30-0400 Systolic blood pressure 116 mm[Hg] Clarice Scally Other [facility] Other 08-28-2022 14:30-0400 Body height 170.18 cm Nahid Elisediff Other [facility] Other 08-28-2022 14:30-0400 Body mass index (BMI) [Ratio] 34.55 kg/m2 Nahid Elisediff Other [facility] Other 08-28-2022 14:30-0400 Body weight 100.06 kg Nahid Elisediff Other [facility] Other 08-28-2022 14:30-0400 Diastolic blood pressure 82 mm[Hg] Nahid Elisediff Other [facility] Other 08-28-2022 14:30-0400 Respiratory rate 18 /min Nahid Elisediff Other [facility] Other 08-28-2022 14:30-0400 SaO2% (BldA) [Mass fraction] 97 % Nahid Elisediff Other [facility] Other 08-28-2022 14:30-0400 Systolic blood pressure 121 mm[Hg] Nahid Elisediff Other [facility] Other Encounters Encounter Date Encounter Type Care Provider Facility Start: 04-05-2024 End: 04-05-2024 ambulatory AURA MURILLO Not Available Start: 03-15-2024 End: 03-15-2024 Emergency department patient visit Nicola Neff Facility:[facility] Start: 10-22-2023 End: 10-22-2023 ambulatory JESSICA SANCHEZ Not Available Start: 08-15-2023 End: 08-15-2023 ambulatory Dedrick Fuller Facility:[facility] Start: 08-15-2023 End: 08-15-2023 ambulatory NON STAFF [facility] Work Phone: Start: 08-15-2023 End: 08-15-2023 Departed Referred [facility] [address] Work Phone: Start: 12-05-[address] SAMI MARINELLI Facility :[facility] Start: 11-09-2022 End: 11-10-[address] DOCTOR STEIN Facility:[facility] Start: 11-01-2022 End: 11-02-2022 ambulatory Nicola Fermin CHANEL Facility: [facility] Start: 11-01-2022 End: 11-01-2022 Patient encounter procedure Nciola R KODAKL [facility] Start: 10-29-2022 End: 10-29-2022 ambulatory Clarice Hull Other [facility] Other Start: 10-29-2022 Telephone encounter [facility]ice [facility] Start: 10-14-2022 End: 10-14-2022 ambulatory Clarice Hull Other [facility] Other Start: 10-14-2022 Telephone encounter Clarice [facility] Start: 10-04-2022 ambulatory Nicola BUCHANAN Facility:[facility] Start: 10-01-2022 (FCCCWMNF/U) Weight Management f/u Clarice Hull [facility] Start: 10-01-2022 End: 10-02-[address] LUZ ELENA SAUCEDA [facility] Other Start: 09-19-2022 End: 09-19-2022 ambulatory Nahid Mccoy Other [facility] Other Start: 09-19-2022 Telephone encounter Nahid [facility] Start: 09-18-2022 End: 09-18-[address] LUZ ELENA SAUCEDA Facility:[facility] Start: 09-12-2022 End: 09-13-[address] ABIGAIL SHEEHAN Facility:[facility] Start: 08-28-2022 End: 08-28-2022 ambulatory Nahid Mccoy Other [facility] [employer] Other Start: 08-28-2022 Nutrition therapy Nahid Mccoy [facility] Start: 07-22-2022 Encounter for genera l adult medical examination without abnormal findings DR SAMI MARINELLI [facility] Start: 07-19-2022 End: 07-20-[address] [...] 05-16-2022 Encounter for preprocedural laboratory examination DR ARUA MURILLO [facility] Start: 05-13-2022 End: 05-14-[address] AURA MURILLO Facility:[facility] Start: 05-13-2022 End: 05-14-2022 Encounter for preprocedural laboratory examination DR AURA MURILLO Facility:[facility] Start: 05-11-2022 Encounter for preprocedural cardiovascular examination DR AURA MURILLO [facility] Start: 05-08-2022 End: 05-09-[address] [...] Nicola NILL Extraction of wisdom tooth M ichalbaro NILL Laparoscopic cholecystectomy Nicola NILL Laparoscopic excisio n of cyst of left ovary Nicola NILL Laparoscopic excisio n of cyst of right ovary Nicola NILL Ligation of fallopian tube M ichael NILL Comment on above: DONE WITH C SECTION LIPOMA EXCISION 4 Nicola NI LL Comment on above: ABDOMEN X3 REPAIR FOR TMJ Nicola NILL Immunizations Immunization Date Immunization Notes Care Provider Fa cility NEGATED: Highlighted row has not occurred!11-01-2022 influenza virus vaccine, unspecified formulation Nicola NILL [facility] Payers Date Payer Category Payer Self-pay [id number] 1975 Unknown [id number] 2.16.8 40.1.383028.3.579.2.727 1975 Unknown [id number] 2.16.84 0.1.488258.3.579.2.593 1975 Unknown [id number] 2.16.84 0.1.412170.3.579.2.593 1975 Unknown [id number] 2.16.84 0.1.192468.3.579.2.593 1975 Unknown [id number] 2.16.84 0.1.352603.3.579.2.593 1975 Unknown [id number] 2.16.84 0.1.105052.3.579.2.593 1975 Unknown [id number] 2.16.84 0.1.689250.3.579.2.593 1975 Unknown [id number] 2.16.84 0.1.144410.3.579.2.593 1975 Unknown [id number] 2.16.84 0.1.776517.3.579.2.593 1975 Unknown [id number] 2.16.84 0.1.481414.3.579.2.593 1975 Unknown [id number] 2.16.84 0.1.434586.3.579.2.593 1975 Unknown [id number] 2.16.84 0.1.021038.3.579.2.593 1975 Unknown [id number] 2.16.84 0.1.458083.3.579.2.593 1975 Unknown [id number] 2.16.84 0.1.530292.3.579.2.593 1975 Unknown [id number] 2.16.84 0.1.619100.3.579.2.593 1975 Unknown [id number] 2.16.8 40.1.606660.3.579.2.718 1975 Unknown [id number] 2.16.84 0.1.598590.3.579.2.1259 1975 Unknown [id number] 2.16.840 .1.283348.3.579.2.1259 1958 Self-pay [id number] 1958 Unknown [id number] 2. 16.840.1.711446.19 Unknown [id number] 2.16.8 40.1.552048.3.579.2.531 Unknown [id number] 2.16.8 40.1.147975.3.579.2.531 Social History Date Type Detail Facility Unknown if ever smoked [facility] Other Sex Assigned At [facility] Start: 11-01-2022 Tobacco smoking status Ex-smoker (finding) [facility] Tobacco smoking status Former smokeless tobacco user, quit more than 30 days ago [facility] Start: 1975 Sex Assigned At Female F [facility] Functional Status Date Assessment Result Facility 11-01-2022 Functional Status N/A [facility] Clinical Notes 05-16-2022 to 03-15-2024 Note [...] Keep all follow-up visits. Medicines ? Take asyi-ipc-qidatya and prescription medicines only as told by [...] work harder to (more content not included)... [facility] 11-25-2022 Note Chief Complaint consultation for umbilical [...] - Denies A (more content not included)... [facility] Comment on above: Result Comment: Elec [...] was counseling done by myself, Ann ANGLIN. [facility] Other 09-28-2022 Evaluation note* Encounter Date Diagnosis Assessment Notes Treatment Notes Treatment Clinical Notes Aug, Abnormal weight gain (ICD-10 - R63.5) Aug, Prediabetes (ICD-10 - R73.03) Aug, Mixed hyperlipidemia (ICD-10 - E78.2) Aug, Hypertension (ICD-10 - I10) Aug, Obstructive sleep apnea (ICD-10 - G47.33) Aug, GERD (gastroesophageal reflux disease) (ICD-10 - K21.9) Aug, Metabolic syndrome X (ICD-10 - E88.81) [facility] Other 06-16-2022 NoteDISCHARGE SUMMARY DISCHARGE DATE: 05/18/2022 [...] pain free and no longer on narcotics. [facility] Signed and Approved by: DR AURA MURILLO . 05/20/2022 07:51:00[facility] [id number] NoteThe [place], [place] NAME: HORACIO PUGH DATE OF : MEDICAL REC#: [id number] AUCTION ASSISTANT: [id number] [facility] ADMIT DATE: 05/16/2022 11:05:00 BRINELL TESTER DATE: 05/17/2022 21:20 DICTATING PHYSICIAN: AURA MURILLO DICTATION DATE: 05/16/2022 15:02 OP Note OPERATION DATE: 05/16/2022 PROCEDURE: Supracervical hysterectomy with left salpingo-oophorectomy with right salpingectomy and right ovarian cystotomy of approximately 3 cm cyst. SURGEON: Aura Murillo D.O. STATOR CONNECTOR: SHUKRI Bailon URINE OUTPUT: Yellow and clear. [...] Approved by: DR AURA MURILLO . 05/23/2022 [facility]00[facility] No data available for this section [facility] Evaluation noteNo InformationNortIdeaForest Other Evaluation noteNo assessment information available [facility] Work Phone: Hisluya general Narrative - Reported* Type Description Date [...] History TMJ surgery Hospitalization History see above [facility] Other Hishamh general Narrative - Reported* Type Description Date [...] see above Hospitalization History ER-abd . 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 request, SEE TE Oral meds, x injectible, initial WMNDS waiting for lab order to be sentDS please callDS Cancelled DM appt Patient Care team informatio n (unrecognized section and content) Team Status: Active Member Role Status Dates NON STAFF Primary Care Provider Active Team Status: Inactive Member Role Status Dates NON STAFF Primary Care Provider Active Dedrick Fuller , [facility] Attending Provider Active INFORMATION SOURCE (unrecogn ized section and content) DATE CREATED AUTHOR 11/26/2022 Bevier Maico [facility] DATE CREATED AUTHOR AUTHOR'S ORGANIZ ATION 12/03/2022 [facility] DATE CREATED AUTHOR AUTHOR'S ORGANIZ ATION 08/16/[address] [facility] DATE CREATED AUTHOR AUTHOR'S ORGANIZ ATION 03/21/2024 [facility] DATE CREATED AUTHOR AUTHOR'S ORGANIZ ATION 04/06/2024 [facility] EPIC Goals (unrecognized [...] BE BASED ON THE PRIMARY CLINICAL RECORDS. [employer] provides no warranty or guarantee of the accuracy or completeness of information in this document.
== END 2024-08-12 15:03 | disposition home or self-care (01) ==
LOC: EC 15:02
PROVIDERS: PCP Family Medicine; Visit Provider Orthopaedic Surgery Orthopaedic Surgery of the Spine
DX: M54.2 Cervicalgia (principal)
CPT/HCPCS: 72052

== ENCOUNTER 2024-09-02 10:34 | Outpatient (OUT) | payer OTHER, SELFPAY ==
--- OUTSIDE RECORDS SUMMARY | 2024-09-02 10:46 | XMS_ITS | CCD ---
Author Organization [facility] CliniSyfl Care Team Providers Care Heel Shaver Name Role Phone Nahid Mccoy Unavailable Clarice [...] Primary Care Unavailable ISMAEL MENJIVAR Attending Unavailable OTTO, ISMAEL Admitting Unavailable ISMAEL MENJIVAR Consulting Unavailable NON STAFF Primary Care Provider UnavailDO Dedrick Alfaro Attending Provider Nicola Neff Attending Unavailab Nicola Anderson Admitting Unavailab SAMI Matos Primary Care Unavailable JESSICA SANCHEZ Attending Unavailable AURA MURILLO Attending Unavailable NON STAFF Primary Care Provider [facility], Dedrick Majano Admitting Unavailable NON STAFF Primary Care Unavailable Allergies Allergy Classification Reported Allergen(s) Allergy Type Date of Onset Reaction(s) Facility (7 sources) NITROFURANTOIN, MACROCRYSTALS / Nitrofurantoin, Monohydrate; 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: [nitrofurantoin] Drug Allergy Neck swelling (finding) [facility] (1 source) Albuterol Drug Allergy [facility] Comment on above: NEED TO CUT DOWN ADR ENALIN TO PREVENT SEIZURES (2 sources) Bee/Wasp/Ant venom; 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: [Bee Stings] Allergy to substance Nausea, Swelling [facility] (1 source) PECANS 1 Food allergy [facility] Comment on above: AIRWAY CONSTRICTION (2 sources) Albuterol; 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: [albuterol] Drug Allergy [facility] (1 source) Egg; 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: [Eggs] Food allergy (disorder) [facility] Repository (4 sources) Nitrofurantoin; 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: [Macrobid] Drug Allergy 2 [facility] (1 source) PECANS; 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: [PECANS] Food allergy (disorder) [facility] Repository (2 sources) bee venom Drug allergy (disorder) 5 [facility] Repository (2 sources) egg extract Drug Allergy 5 [facility] (2 sources) pecan pollen extract Drug Allergy [facility] (2 sources) tree nut, unspecified Drug allergy (disorder) 5 [facility] (1 source) Nitrofurantoin Drug Allergy 2 [facility] Medications Current Medications Medication Drug Class(es) [...] Status: Ordered take 1 capsule by [facility] every twenty-four hours Omeprazole 40 MG [...] 2 Chronic Other aftercare (1 source) Other snf (current) drug therapy; 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] Onset: 2 Episodic Other [...] [CONTACT W/AND (SUSP) EXPOS COVID-19] Onset: 2 Past or Other Problems Problem [...] Test Name Value Interpretation Reference Range Facility Basic Metabolic Panelon 08-03 GFR/1.73 sq M.predicted MDRD (S/P/Bld) [Vol rate/Area] mL/min/{1.73_m2} Normal [facility] Comment on above: Performed By: #### L IPID, BMP #### [facility] [address] [place] [address] [place] Calcium [Mass/volume] in Ser um or PlasmaOrdered By: Dedrick Fuller on 08-30-2024 Calcium [Mass/Vol] 9.9 mg/dL Normal 8.6-10.3 [facility] Comment on above: Performed By: #### L IPID, BMP #### [facility] [address] [place] [id number] [place] Carbon dioxide, total [Moles /volume] in Serum or PlasmaOrdered By: Dedrick Fuller on 08-30-2024 CO2 [Moles/Vol] 26.6 mmol/L Normal 21.0-31.0 [facility] Comment on above: Performed By: #### L IPID, BMP #### [facility] [address] [place] [id number] [place] Chloride [Moles/volume] in S altagracia or PlasmaOrdered By: Dedrick Fuller on 08-30-2024 Chloride [Moles/Vol] 104 mmol/L Normal 98-107 [facility] Comment on above: Performed By: #### L IPID, BMP #### [facility] [address] [place] [id number] [place] Cholesterol [Mass/volume] in Serum or PlasmaOrdered By: Dedrick Fuller on 08-30-2024 Cholesterol [Mass/Vol] 218 mg/dL High 140-200 [facility] Comment on above: Chol less than 200 m g/dl low riskChol 201-239 mg/dl borderline riskChol 240 mg/dl and greater high risk Result Comment: Chol less than 200 mg/dl low risk Chol 201-239 mg/dl borderline risk Chol 240 mg/dl and greater high risk Performed By: #### L IPID, BMP #### [facility] [address] [place] [address] [place] Cholesterol in LDL Calc [Mas s/Vol]Ordered By: Dedrick Fuller on 08-30-2024 Cholesterol in LDL [Mass/Vol] 134 mg/dL High 0-100 [facility] Comment on above: LDL ATP III CLASSIFI CATIONLDL less than 100 mg/dL OptimalLDL 100-129 mg/dL Near or above optimalLDL 130-159 mg/dL Borderline highLDL 160-189 mg/dL HighLDL greater than 189 mg/dL Very high Cholesterol in VLDL Calc [Ma ss/Vol]Ordered By: Dedrick Fuller on 08-30-2024 Cholesterol in VLDL [Mass/Vol] 46 mg/dL [facility] Creatinine [Mass/volume] in Serum or PlasmaOrdered By: Dedrick Fuller on 08-30-2024 Creatinine [Mass/Vol] 0.75 mg/dL Normal 0.60-1.20 [facility] Comment on above: Performed By: #### L IPID, BMP #### [facility] [address] Glucose [Mass/volume] in Ser um or PlasmaOrdered By: Dedrick Fuller on 08-30-2024 Glucose [Mass/Vol] 95 mg/dL Normal 70-100 [facility] Comment on above: ADA recommended refe rence rangeRandom Glucose Reference Range is dependent on time and content of last meal. Glucose of more than 200 mg/dL in a nonstressed, ambulatory subject supports the diagnosis of Diabetes Mellitus. Result Comment: [place] om Glucose Reference Range is dependent on time and content of last meal. Glucose of more than 200 mg/dL in a nonstressed, ambulatory subject supports the diagnosis of Diabetes Mellitus. ADA recommended reference range Performed By: #### L IPID, BMP #### [facility] [address] [place] [id number] [place] Lipid Panelon 08-30-2024 LDL Cholesterol,Calculated 134 mg/dL High 0-100 [facility] Comment on above: Result Comment: LDL ATP III CLASSIFICATION LDL less than 100 mg/dL Optimal LDL 100-129 mg/dL Near or above optimal LDL 130-159 mg/dL Borderline high LDL 160-189 mg/dL High LDL greater than 189 mg/dL Very high Performed By: #### L IPID, BMP #### [address] Triglyceride w/Reflex 231 mg/dL High 0-149 [facility] Comment on above: Result Comment: TRIG ATP III CLASSIFICATION TRIG less than 150 mg/dL Normal TRIG 150-199 mg/dL Borderline high TRIG 200-500 mg/dL High TRIG greater than 500 mg/dL Very high Standard traceable to the Center for Disease Conrtrol and Prevention (CDC) test method. Performed By: #### L IPID, BMP #### [address] VLDL CHOLESTEROL 46 mg/dL Normal [facility] Comment on above: Performed By: #### L IPID, BMP #### [address] No Panel InformationOrdered By: Dedrick Fuller on 08-30-2024 Estimated GFR (CKD-EPI) > 60.0 mL/Min [facility] Creatinine Clearance (Chem N/A [facility] Potassium [Moles/volume] in Serum or PlasmaOrdered By: Dedrick Fuller on 08-30-2024 Potassium [Moles/Vol] 4.1 mmol/L Normal 3.5-5.1 [facility] Comment on above: Performed By: #### L IPID, BMP #### [address] Serum or plasma anion gap de terminationOrdered By: Dedrick Fuller on 08-30-2024 Anion gap [Moles/Vol] 13.5 mmol/L Normal 6.0-15.0 [facility] Comment on above: Performed By: #### L IPID, BMP #### [address] Serum or plasma high density lipoprotein (HDL) cholesterol measurementOrdered By: Dedrick Fuller on 08-30-2024 Cholesterol in HDL [Mass/Vol] 38 mg/dL Normal 23-92 [facility] Comment on above: HDL CHOL ATP-III CLA SSIFICATION Cardiovascular RiskHDL > or equal to 60 mg/dL LOWHDL < 40 mg/dL HIGH Result Comment: HDL CHOL ATP-III CLASSIFICATION Cardiovascular Risk HDL > or equal to 60 mg/dL LOW HDL < 40 mg/dL HIGH Performed By: #### L IPID, BMP #### [facility] [address] Serum or plasma total choles terol/high density lipoprotein (HDL) cholesterol mass ratOrdered By: Dedrick Fuller on 08-30-2024 Cholesterol.total/Mirta sterol in HDL [Mass ratio] 5.7 {ratio} Normal <5.0 [facility] Comment on above: Result Comment: PERF ORMED BY: [place] [address] PATHOLOGIST BRANDING MACHINE TENDER IRMA MARCELO M.D. Performed By: #### L IPID, BMP #### [facility] [address] Sodium [Moles/volume] in Ser um or PlasmaOrdered By: Dedrick Fuller on 08-30-2024 Sodium [Moles/Vol] 140 mmol/L Normal 136-145 [facility] Comment on above: Performed By: #### L IPID, BMP #### [facility] [address] Triglyceride [Mass/volume] i n Serum or PlasmaOrdered By: Dedrick Fuller on 08-30-2024 Triglyceride [Mass/Vol] 231 mg/dL High 0-149 [facility] Comment on above: TRIG ATP III CLASSIF ICATIONTRIG less than 150 mg/dL NormalTRIG 150-199 mg/dL Borderline highTRIG 200-500 mg/dL High TRIG greater than 500 mg/dL Very highStandard traceable to the Center for Disease Conrtrol and Prevention (CDC) test method. Urea nitrogen [Mass/volume] in Serum or PlasmaOrdered By: Dedrick Fuller on 08-30-2024 Urea nitrogen [Mass/Vol] 18 mg/dL Normal 7-25 [facility] Comment on above: Performed By: #### L IPID, [id number] #### [facility] [address] Coding Summaryon 03-19-2024 Coding Summary HTMLBase 64 OeysnkewHZr5yVl+PGhlY WQ+DG5SVNGgA85mgSHkwP 0hT6HEPZcOVuglNZVFBEy OKoPsyiPxEX1bdCTdDYMr IC8+SB9fABQdXjrhfWMet 6A3tQX6P97uij2eGXyikG M2PIKtQdYzpokxk3sreEc 6IDcuNmluOyBt ABWiqD92JOE3dR65Kq52y IShvOXrx2ynjOk0MzArMO JqRTV6wMbzCNmch8DePIX pT72cyOCjq4B3 AMWveLkerJVsCcHzsZZ1s C8kIChunioyq5ueajpdBe f1qe95sEJbq4S9dRP0T9A gxcU8VMGhkRIr EimzvGAOiC1odstec9tqa nadNkWgIURoYIl5SBs2AC IdwJrzRpAwTU63ECX6PDW gkdUxI5TzTUCb eHtxJuS8w8T0Bn7JK1CIC dhxG0TTRNIZGJdfbWG+PC 32ik46L5OuBiojHpf3CTU lLMD5lIP6uE9a USQpVDfxb6X4mHH4N1Thk zYidr8vc0alFKFnJMdsY4 1mfSHkk5H2XVMdzYT1UBX vvDgsGcEgzI41 Oyc+TOVlkWtuj3QjMfrqr 0rxy0akuVe0DydaTLUdhg ZsjDfdQKG1t7KsHz4kMIT elCR2mPO5qE3l AdZfZoX3MRfwP417YsQro GXgMlazM54rR3ZhrXF+PH HvRgs7BOCimKpyIG4sZ0R hZGRpbmctbGVm rSmaQK4lQLDlskrwOEVyw K9lRTMfV3e0RiBgQtM0RX eiQ6RyWMRypfpbHt67eN0 tRvZxMuB1AZus L0XlfpL7DMKydAJrJHtnE SJ4U25xa8S1SDKjFJWjCD I0lID1cA1ztQoduhqctWP mdDsgdmVydGlj HZkdXUwqG818JCSraDilP kNvZGluZyBEYXRlOiAgMD QvMTkvMjAyNDwvdGQ+PHR uXGQ3bKraPXNr vGPuPMehLk6dwIicgTiqD W4zRXJuomyzJPGhhI6xAX NssZFsaLwzBD9uINVkfhf dl922YhXvPHG1 YQTmoOQkE3UjsC6fQxRaY YYmRLTuN2GdqYVfLWggJ5 56RFkkIbL2FUAnfjEhS8R sLWFsaWduOiB0 v8W2Gm2Mg8WrrjpiK2Wud KWaKaXpKybvYHs2G8ZyJn wvdHI+MI68GLVmZX58RTd 9LKD0jQgbGCbn TGDhU9VxnX2pXbKnNTByQ GRkOyc+PHRhYmxlIHdpZH RoPScxMDAlJyBzdHlsZT0 wPi4hXOPhYXNb sHbywLTzBjJkv5nvNVCoU VjuCZ7foDdtX6PqbWJ0OH Fyx2v3Mf38K93tZ0HjjEC +UKJvyGO1eXB1 iR1mFhOqHmU2FMhbA457B qQvgKWjCdqfq1yla2hswB j3BhU0NFLtqwXsaMqcVHH 1a4LrEm04O50n IHdpZHRoPSIxNSUiIHZhb Tkzxm1hpM6zCm2+PGNvbC L5rUJ7dR6tIjDlEjP7JGt jM971FzMxlWPz Igbnn9hcp6hguEa3GsQlS FApepXvkNncDQD0k2DhGy 62Z0UlrBsoq1KqHov5qp3 7eYSum3U7zRQ9 J6XdMYZytskugHGbaGysT I3zVZEybiauHUZolQ3lFF AhH3t5OwXcWvJ9OWdmG7H cspD0RAJfoTTn RYZaaYKZaQ0nqjoiw3zou fgjDrDfWRLdWCy6TMv0TD HnlYrzPzVlPMU9FxB1XCY 4iVPtaP3koZou wjcbuC5pDsa+AZW0qUIgi GKALT3bAehhjMK+PHRkIH N8hAsuXQllFXOkpZ8vFVE fU7p5HgGvRsJ9 WUwfM9HlpvH5HBRnyBSsT DBxkSZFdE7qkwicg4ikxy utFmTjTWIzSQg2CLc7BTR saWduOiBsZWZ0 HnT1FRG7aRUblG5hyInse egrnL9xYlr+QmlydGggRG F6ITt4M9UxWqz7EBAspSb kRB0rtYElPArq Xm2qaQytaWqdHH4wCIKtd rpgj048RuAnn1eePSRfaG KqENteUMV6U03ov4J5ZNA bDWNdCBZ7uZR8 cK0apJyscjruaYHyzDjrr hFjdHflXSqoMGjvO158MW BufSasWeQxEZr1V1IvLqc 4ORQbbTafTK1o dCJpCIuiDh9xcYksnFqdM L9pCNRprcwbp795MtHuh9 tkSEHzvECpHRrgDAL6X43 ta9C3TDWrIDRg FST7fZC5iG6wsFyqhiszb GVmdDsgdmVydGljYWwtYW dfY066MHBraOlgIcPnzFa 2Z4MmEre6GGOa lWiwEG8iuNXkGQkfLj8wl YzakYqeZN0mUDHzjedlw3 61OrCiu9arGEQmePEwBEd uJBL5T18lu0W5 KSYjKMYcAUV1qWO9eK1qx GlnbjogbGVmdDsgdmVydG nlUHazMDoiO317XTKkpXw nPlBhdGllbnQg OVrpICu4X3TcJalxaRZ+P N21TYXsFP40aWHisCCgh0 wpuHm1MqNtHFMdKLT1dPl sPNgkq9VtQTFc C25mcCUtb2G6JVDgkVnoe VPrGaEfjKV1nW8vOMvoem lcx0wlgskySpbtg3mrpx1 7cX08J50yMMyw ZHRoPSIzMCUiIHZhbGlnb w4bvR9rLp6+SZKnyAP1pC T7lU6rCIKsSmF4DArqJ66 9InRvcCIvPjxj z2vkf2wsdFs0KfH8XISsa tPmcTmyYRW3q3RuCn62H5 9sIHdpZHRoPSIyMCUiIHZ btEfdsu9xaC6x Ii8+QVBvaGO6wWX4lJ5tB sBfPuP4NEdyO442HqPzjE IvPocvC56xH5IndGI+PHR gWwj2ARYanTek JD8hxTRwXTmsDs0vSWO2B dYiIzChXCdbN5OkNFSzpu krnhfctZO2PJLdHEKfpY9 8Ll6ikXyzOILt lFIWeT2ebcprm2gijyroD yQqABKwMDr2OKp5YTXvpU nlCrCkFRC0UoV9FND8yEE dxS5xgEoskdyx hD4uK2WmMAVvbhgoEz64i E6cAkEhXlC6FKayGai+Q0 1GPBTPOGSTSCOHEV1NPG2 JE38TUVjifKJ+ YMNsLTM9iVvwFCmhMDWtd U6aHABxP0c1OcLwPnG7QY byC7GrWDKggogcBy87qZ0 aHmQxZoC7AGqi K7WqzwU5BLMcmZKpDQmdN XA7E60it3Y1WVIvOXJpEM F1uBJ7wL8ipAmzqzqznMQ mdDsgdmVydGlj BHisYGztZ713OBWkzNyrQ tG5YwG4WcO6NsE6M8NqZo y4VZYzjAenPL5vcVTsCWb tLc5ssXsbyLsx FW4bINBfonymXKFuhH2eE SYneLDwlYckWU2tTCEtha qzq181PgCgSXY0CCLtvXE uD8MpyC5aCtTp FPRtFCQyZ2ZyeYQxJHesC 485LOlkAlL7CRVyrkWsK5 DqNUCrnZuoHgW0u3H0Fz8 0NyBZZWFyczwv dGQ+NSMnSLK1tTxsEZmcZ VHkoC9kFIJqV4t1AzJyLd S5NDtbE4WiLFDwqgapDo5 9mG0dBoMtVyE0 QMomP9PysiD9GSZrgQYxT HrrWHR1T93ai7G4MTKgZU PxLZP6vWI6wD8dsIczsnw gbGVmdDsgdmVy pCryRIypVRjqM117LSIra DsnPkZFTUFMRTwvdGQ+PH NnQSI7kIeeWWseLIKgzK3 bFBTwJ0y0WbCh ThW9HEptK8RmYNFyhdybA j81nM0qFvBoBlM3ZCxiA3 JditI6LVGghTChGOvkXIP 5K86qs6Q2HDLm HQOeDEY9tBJ6xJ9gvWnhu jogbGVmdDsgdmVydGljYW cxGVdkS744TDDyuYefAlB pXXIeOC7cpYbc dGQ+CD44ix33A5UfUnsjM uy5KCMrVTU2pSV6uT3yJT FgNIafy6Q3vNZ5R6IapiO jxm8um5vzBFTp IDupW13trLVql1S2DJBwj MR9ZDIggKqhObBjmD58Fz c+GXVefOhak7JfOkqii4g wo9zkeXy4KwLy TXNqcbEuvUvuDUV1j9IyO u30T87qETnbUUFuMUNrHX LyAWZdjSukxv0ulT4nHu5 +ZIEgrIZ6dWM0 zA2hXiByXjJ7JXheY039J fNddSKcCqtsf7xcu8edwE d4VbGjFFSzlcUxbIheSYD 1j6EnZl86D4Xv mNwok8EoLmj6jh51pDElt 7U0bWE7K3GsCQLrnhqryD TacJkrNZ4fSXOopkujWRB jxO9nNEMhF3y7 PeZmDrX7QXehU0AzinS7Z FBanGGfCOQvzMZQtZ6aie rfa5fjpasbDaVzYSTuWTn 7NDz1AEPvlEfs YbRsVZH9CeL4TJC4cOLkh I0ytNbjhtejmD7mBhx+UG o3o9qciFDtVM1zyAZ8HC9 9VT58sAOvj6H1 tLS3J7MiDNQuhzlbrdcsd JG5MIPjRUWcxP28Ln0keQ ulKg0yLVGbQVI5UTJckQE aD8TgxO1mCyXg PIHzZULgO0QncROlIMnvV 250HGztJlH3NMQgzvAtC1 ZmXLNdjSacFaM5p2J7Tf7 GSI86YI03HI84 dDJrp1X5pNQ3O1IyXXVal rfkrgcggAV0UXScPPVhuJ 76Lr5wkPwpEf9vPCWvKID 8DKGapPOsO1Ht uN9oCnUlKSZmTRErC6Lqx JLeEBwsN430OZkfYnT4MZ XlbqOhQ4DvUICncMmxSnN 6g5Q8Kl9QZi22 ZE97UJ99sYFfc5A4qDS0P 5XyBBSciukkbbutvXS2NC BoSBZrtJ14Fh8toMllKm8 sDTWyZER6DOGo tNXxP6RtoY7kSxNhCHGdL XMcE7SbsQQdVSfeU872MS zgXdF4GHPtqgZfJ0SuJSH zrKnjNnB0q7Q1 Uc0BGYvxqet9U9DyRcomf HI+BK87QOIeKY97lBGsnG Nbq4sxvTo3KtWfMQIjQOP 8wSkxMCocd5Hc ZXI (more content not included)... Normal [facility] Ambulance Noteon 03-17-2024 Ambulance Note [id number] 1 [id number]#1.[address] [facility] C Urineon 03-17-2024 C Urine Urine Culture ordere d as a result of parameters set on specific urine dip and urine microsopic results. >100,000 cfu/ml Lactobacillus species Normal vaginal oleg isolated 10,000 cfu/ml Corynebacterium species (DIPTHEROID) No YOLANDE performed on this organism No pathogens isolated [facility] Comment on above: Performed By: #### 5 [id number], [id number] ####[facility] (DEFAULT)[address] [place] [address] .Auto Diff 1on 03-15-2024 Auto [place] % 3 % Normal -12 [facility] Comment on above: Performed By: #### 5 [id number], [id number], [id number], [id number], [id number], 0717878, 2182832 #### [facility] (DEFAULT) [address] [place] [address] 28300 Baso Abs# 0.1 x10 Normal 0.0-0.2 [facility] Comment on above: Performed By: #### 5 [id number], [id number], [id number], 43107814, 5661178827, 2134325, 7127492 #### [facility] (DEFAULT) [address] [place] [address] 59854 Basophils/100 WBC (Bld) 0.7 % Normal 0.2-2.0 [facility] Comment on above: Performed By: #### 5 [id number], [id number], [id number], 07852169, 5339541853, 4974654, 2225766 #### [facility] (DEFAULT) [address] [place] [address] 34496 Eos Abs# 0.1 x10 Normal 0.0-0.4 [facility] Comment on above: Performed By: #### 5 [id number], [id number], [id number], 05939466, 6463668067, 2939220, 7795162 #### [facility] (DEFAULT) [address] [place] [address] 27701 Eosinophils/100 WBC (Bld) 0.7 % Low 0.9-4.0 [facility] Comment on above: Performed By: #### 5 [id number], [id number], 9131496242, 00069455, 1271617993, 9427897, 0246538 #### [facility] (DEFAULT) [address] [place] [address] 11048 Lymph Abs# 2.2 x10 Normal 1.3-2.9 [facility] Comment on above: Performed By: #### 5 [id number], [id number], 0386213528, 51769768, 8316308372, 7080884, 8774547 #### [facility] (DEFAULT) [address] [place] [address] 11983 Lymphocytes/100 WBC (Bld) 14 % Normal 14-48 [facility] Comment on above: Performed By: #### 5 [id number], [id number], [id number], 32336302, 0038244267, 6287715, 1248046 #### [facility] (DEFAULT) [address] [place] [address] 77848 [place] Abs# 0.5 x10 Normal 0.0-0.8 [facility] Comment on above: Performed By: #### 5 [id number], [id number], 0590511031, 18537765, 0181491717, 5408080, 5243872 #### [facility] (DEFAULT) [address] [place] [address] 11586 Neut Abs# 13.5 x10 High 1.5-9.2 [facility] Comment on above: Result Comment: Slid e Reviewed Performed By: #### 5 [id number], [id number], 5245953965, 15576088, 0670827796, 2312025, 5718041 #### [facility] (DEFAULT) [address] [place] [address] Neutrophils/100 WBC (Bld) 82 % Normal 44-88 [facility] Comment on above: Performed By: #### 5 [id number], [id number], 3865198065, 45454582, 1888055919, 2413407, 6057632 #### [facility] (DEFAULT) [address] [place] [address] CBC w/ Auto Diffon 4 Erythrocyte distribution width (RBC) [Ratio] 13.3 % Normal 11.5-15.0 [facility] Comment on above: Performed By: #### 5 [id number], [id number], [id number], 14043896, 7506974602, 1095191, 5947680 #### [facility] (DEFAULT) [address] [place] [address] Hematocrit (Bld) [Volume fraction] 45.0 % High 33.7-40.4 [facility] Comment on above: Performed By: #### 5 [id number], [id number], 6563656388, 91919297, 1675024499, 2354239, 3381083 #### [facility] (DEFAULT) [address] [place] [address] Hemoglobin (Bld) [Mass/Vol] 15.0 g/dL Normal 11.3-15.9 [facility] Comment on above: Performed By: #### 5 [id number], [id number], 9337948001, 37438801, 9519677746, 4996547, 2178469 #### [facility] (DEFAULT) [address] [place] [address] Man Diff? Auto Invalid Interpretation Code [facility] Comment on above: Performed By: #### 5 [id number], [id number], 1070649919, 70388763, 9165651473, 1804292, 6474652 #### [facility] (DEFAULT) [address] [place] [address] 34095 MCH (RBC) [Entitic mass] 32 pg Normal 24-34 [facility] Comment on above: Performed By: #### 5 [id number], 7326533151, 1234335512, 72307673, 4243639882, 8814446, 4117464 #### [facility] (DEFAULT) [address] [place] [address] 47767 MCHC (RBC) [Mass/Vol] 33 g/dL Normal 26-37 [facility] Comment on above: Performed By: #### 5 [id number], [id number], 1249417746, 72391652, 8491546734, 2645918, 6371858 #### [facility] (DEFAULT) [address] [place] [address] 04398 MCV (RBC) [Entitic vol] 95 fL Normal 81-100 [facility] Comment on above: Performed By: #### 5 [id number], [id number], 0071302365, 64298644, 2283495692, 5932456, 7257337 #### [facility] (DEFAULT) [address] [place] [address] 08046 Platelet 292 x10 Normal 138-427 [facility] Comment on above: Performed By: #### 5 [id number], 2413689985, 2729573047, 34071518, 6460955543, 2129614, 2440527 #### [facility] (DEFAULT) [address] [place] [address] 98370 Platelet mean volume (Bld) [Entitic vol] 8.7 fL Normal 6.3-10.2 [facility] Comment on above: Performed By: #### 5 [id number], 5607144963, 1686676804, 71840942, 9290543539, 5836992, 7448727 #### [facility] (DEFAULT) [address] [place] [address] RBC 4.74 x10 Normal 3.70-5.30 [facility] Comment on above: Performed By: #### 5 [id number], 0920651674, 9274080364, 60218793, 5057487545, 7817282, 1832259 #### [facility] (DEFAULT) [address] [place] [address] WBC 16.4 x10 High 3.5-10.5 [facility] Comment on above: Performed By: #### 5 [id number], 4186759552, 8640306930, 68090506, 5260085714, 2199910, 8072159 #### [facility] (DEFAULT) [address] [place] [address] CMP Standardon 03-15-2024 eGFR Non AA >[address] [facility] Comment on above: Performed By: #### 5 [id number], 0524170981, 4236213323, 75278709, 2043764194, 1392084, 6924576 #### [facility] (DEFAULT) [address] [place] [address] 45778 eGFR AA >[address] [facility] Comment on above: Performed By: #### 5 [id number], 3196264451, 9661307428, 50026251, 3650052238, 7019713, 8258298 #### [facility] (DEFAULT) [address] [place] [address] 31047 Albumin [Mass/Vol] 4.1 g/dL Normal 3.5-5.0 [facility] Comment on above: Performed By: #### 5 [id number], 9787206971, 6917976035, 42155082, 8277214024, 6987006, 4033832 #### [facility] (DEFAULT) [address] [place] [address] Albumin/Globulin [Mass ratio] 1.3 {ratio} Low 1.4-2.6 [facility] Comment on above: Performed By: #### 5 [id number], 5606936208, 9839106427, 88597425, 9085004605, 5337133, 0561128 #### [facility] (DEFAULT) [address] [place] [address] 17152 Alk Phos 39 IU/L Normal 32-91 [facility] Comment on above: Performed By: #### 5 [id number], 6733401192, 9925814233, 83970308, 5775623296, 2326596, 3581690 #### [facility] (DEFAULT) [address] [place] [address] 12627 ALT [Catalytic activity/Vol] 32.0 U/L Normal 14.0-54.0 [facility] Comment on above: Performed By: #### 5 [id number], 9955037011, 8817868216, 06150695, 0334611608, 0319483, 8883364 #### [facility] (DEFAULT) [address] [place] [address] 93495 Anion gap [Moles/Vol] 13.0 mmol/L Normal 5.0-19.0 [facility] Comment on above: Performed By: #### 5 [id number], 4857172550, 7225057384, 41516443, 2089525863, 9564850, 7042799 #### [facility] (DEFAULT) [address] [place] [address] 18962 AST [Catalytic activity/Vol] 25 U/L Normal 15-41 [facility] Comment on above: Performed By: #### 5 [id number], 5039871808, 3534852618, 29303413, 3279202583, 9959272, 7359624 #### [facility] (DEFAULT) [address] [place] [address] 05618 Bili Total 1.4 mg/dL High 0.3-1.2 [facility] Comment on above: Performed By: #### 5 [id number], 9965300360, 1171904217, 15991505, 7339997005, 9167434, 0394152 #### [facility] (DEFAULT) [address] [place] [address] 50793 Calcium [Mass/Vol] 8.8 mg/dL Low 8.9-10.3 [facility] Comment on above: Performed By: #### 5 [id number], 2536218977, 4197903353, 08772333, 3509141496, 9482947, 8192026 #### [facility] (DEFAULT) [address] [place] [address] 27833 Chloride [Moles/Vol] 105 mmol/L Normal 101-111 [facility] Comment on above: Performed By: #### 5 [id number], 6027559365, 7923887464, 99437479, 8589284515, 7766655, 9568155 #### [facility] (DEFAULT) [address] [place] [address] 33617 CO2 [Moles/Vol] 24 mmol/L Normal 21-32 [facility] Comment on above: Performed By: #### 5 [id number], 6230698214, 7165650735, 69356736, 6346754229, 8933078, 3791833 #### [facility] (DEFAULT) [address] [place] [address] 00999 Creatinine [Mass/Vol] 0.72 mg/dL Normal 0.60-1.30 [facility] Comment on above: Performed By: #### 5 [id number], 5733496605, 8439457404, 38038645, 5395176305, 4049880, 7981466 #### [facility] (DEFAULT) [address] [place] [address] 01766 Globulin (S) [Mass/Vol] 3.0 g/dL Normal 1.5-4.3 [facility] Comment on above: Performed By: #### 5 [id number], [id number], [id number], [id number], [id number], [id number], [id number] #### [facility] (DEFAULT) [address] [place] [address] 90041 Glucose [Mass/Vol] 124.0 mg/dL High 74.0-118.0 [facility] Comment on above: Performed By: #### 5 [id number], [id number], [id number], [id number], [id number], 0105785, 7633225 #### [facility] (DEFAULT) [address] [place] [address] 83272 Osmolality 278 mOsm/L Invalid Interpretation Code [facility] Comment on above: Performed By: #### 5 [id number], [id number], [id number], [id number], [id number], 2586677, 8461686 #### [facility] (DEFAULT) [address] [place] [address] 45072 Potassium [Moles/Vol] 4.0 mmol/L Normal 3.6-5.1 [facility] Comment on above: Performed By: #### 5 [id number], [id number], [id number], 40808529, [id number], 8573284, 2054874 #### [facility] (DEFAULT) [address] [place] [address] 15249 Protein [Mass/Vol] 7.1 g/dL Normal 6.5-8.1 [facility] Comment on above: Performed By: #### 5 [id number], [id number], [id number], 71205838, [id number], 5384439, 0979018 #### [facility] (DEFAULT) [address] [place] [address] 59574 Sodium [Moles/Vol] 138.0 mmol/L Normal 136.0-144.0 [facility] Comment on above: Performed By: #### 5 [id number], [id number], 6942987736, 94253962, 5634247593, 7868619, 7315227 #### [facility] (DEFAULT) [address] [place] [address] 31679 Urea nitrogen [Mass/Vol] 15 mg/dL Normal 8-26 [facility] Comment on above: Performed By: #### 5 [id number], [id number], [id number], 48957045, 0169632839, 3559883, 6374516 #### [facility] (DEFAULT) [address] [place] [address] 78882 Urea nitrogen/Creatinine [Mass ratio] 20.8 mg/mg High 4.6-16.2 [facility] Comment on above: Performed By: #### 5 [id number], [id number], [id number], 63889994, [id number], 1276577, 7547531 #### [facility] (DEFAULT) [address] [place] [address] [facility] Comment on above: Performed By: #### 5 [id number], [id number], [id number], 07129483, 9487758676, 6405382, 7673641 #### [facility] (DEFAULT) [address] [place] [address] 94712 ED Clinical Summaryon [address] [facility] - Emergency Department [address] [place], [place] [id number] ED Clinical Summary PERSON INFORMATION Name: PAIGE KEATING Age: 48 Years Sex: FEMALE : 1975 MRN: Acct#: Visit Reason: Shortness of breath; Anxiety; Blood pressure check; SOB Arrival: 03/15/2024 17:56:51 Discharge: 03/15/2024 20:31:00 LOS: 000 02:35 Check In: 03/15/2024 17:56:51 Checkout:03/15/2024 20:31:00 Address: [address] [place] [address] PCP: SAMI MARINELLI PROVIDER INFORMATION Provider Role Assigned Unassigned Nicola Neff DO ED Provider 03/15/2024 18:07:25 Shanika Narvaez RN ED Nurse 03/15/2024 18:08:57 Joanna Angeles HALL CLEANER Nurse 03/15/2024 19:24:01 VITALS INFORMATION Vital Sign [...] Allergy Information: Macrobid; albuterol PHYSICIAN DOCUMENTATION Patient: PAIGE KEATING Age: 48 years Sex: FEMALE : [...] . Physical Exa (more content not included)... [facility] ED Note - Physicianon 2023 ED Note - Physician Patient: PAIGE KEATING Age: 48 years Sex: FEMALE : [...] lymphadenopathy. Psychiatric: (more content not included)... Normal [facility] ED Note-Nursingon 03-15-2024 ED Note-Nursing Patient presents to the ER via [facility] for shortness of breath, anxiety. Patient [...] 12 lead was regular in rate Normal [facility] ED Patient Summaryon [address] [facility] - Emergency Department [address] [place] [address] PATIENT DISCHARGE INSTRUCTIONS Patient Information Name: PAIGE KEATING Age: 48 Years Date of : 1975 Reason For Visit: Shortness of breath; Anxiety; Blood pressure check; SOB Arrival Time: 03/15/2024 17:56:51 Primary Care Physician: SAMI MARINELLI Attending Physician: Nicola Neff DO Comment: Visit Diagnosis: Diagnoses This Visit Anxiety ([id number]) Blood pressure check ([id number]) Hypertension (I10) Panic attack (F41.0) Shortness of breath ([id number]) Urinary tract infection (N39.0) The Pharmacy at [facility] is open Friday through Friday from 9A [...] alcohol and/or drug addiction problems; contact the [facility] 23/06 Crisis Hotline -Text 9DBKD vq [phone]. If you received any narcotics, sedation, or [...] legal documents With: Address: When: SAMI MARINELLI [address] [place] [address] [address] [place] [id number] Business (1) Within 3 to 5 days Comments: Call for follow up appointment Return if symptoms worsen Medication Information: The exam and treatment you received today in the [facility] Emergency Department were for an urgent problem and are not intended as complete care. It is important for you to follow up with a doctor, nurse practitioner, or physician?s kindergarten instructional assistant for ongoing care. If your symptoms [...] so we can reach you if necessary. [facility] Emergency Department has provided you with a complete list of medications post discharge. Please inform your forestry workers/provider of your visit and for further instruction [...] Vitals an (more content not included)... Normal [facility] Extra [facility] 03-15-2024 Tube Collected Yes Invalid Interpretation Code [facility] Comment on above: Performed By: #### 5 [id number], [id number], [id number], 70111281, [id number], 5555851, 3019685 #### [facility] (DEFAULT) [address] [place] [address] Extra Redon 03-15-2024 Tube Collected Yes Invalid Interpretation Code [facility] Comment on above: Performed By: #### 5 [id number], [id number], [id number], [id number], [id number], 3965030, 1958004 #### [facility] (DEFAULT) [address] [place] [address] 15510 PTon 03-15-2024 INR Coag (PPP) [Relative time] 0.94 {INR} Normal 0.91-1.11 [facility] Comment on above: Performed By: #### 5 [id number], [id number], [id number], 47400812, 3693001433, 0891564, 2217078 #### [facility] (DEFAULT) [address] [place] [address] 55146 PT 9.8 second(s) Normal 9.7-11.8 [facility] Comment on above: Performed By: #### 5 [id number], [id number], 5307234875, 16834006, 5415699083, 9585998, 2264457 #### [facility] (DEFAULT) [address] [place] [address] 91243 TnI HSon 03-15-2024 Troponin I High Sensitivity 7.7 pg/mL Normal <=15.0 [facility] Comment on above: Performed By: #### 5 [id number], [id number], 2780204019, 61438670, 1933878927, 6708696, 2799495 #### [facility] (DEFAULT) [address] [place] [address] 50437 UA Vmkrd2ev 03-15-2024 UA Amorph. 1+ Normal [facility] Comment on above: Order Comment: Urina lysis Microscopic order added on by [employer] Expert Rules system. Performed By: #### 5 [id number], [id number], [id number] ####[facility] (DEFAULT)[address] [place] [address] 23883 UA Bacteria 3+ Normal [facility] Comment on above: Order Comment: Urina lysis Microscopic order added on by [employer] Rules system. Performed By: #### 5 [id number], [id number], [id number] ####[facility] (DEFAULT)[address] [place] [address] 21771 UA Mucous 1+ [facility] Comment on above: Order Comment: Urina lysis Microscopic order added on by [employer] Rules system. Performed By: #### 5 [id number], [id number], [id number] ####[facility] (DEFAULT)[address] [place] [address] UA RBC 3-5 [facility] Comment on above: Order Comment: Urina lysis Microscopic order added on by [employer] Rules system. Performed By: #### 5 [id number], [id number], [id number] ####[facility] (DEFAULT)[address] [place] [address] UA Renal Epi Rare [facility] Comment on above: Order Comment: Urina lysis Microscopic order added on by [employer] Rules system. Performed By: #### 5 [id number], [id number], 7535974 ####[facility] (DEFAULT)[address] [place] [address] UA Squam Epi Many [facility] Comment on above: Order Comment: Urina lysis Microscopic order added on by [employer] Rules system. Performed By: #### 5 [id number], [id number], 7067906 ####[facility] (DEFAULT)[address] [place] [address] UA WBC 3-5 [facility] Comment on above: Order Comment: Urina lysis Microscopic order added on by [employer] Rules system. Performed By: #### 5 [id number], [id number], 2519858 ####[facility] (DEFAULT)[address] [place] [address] 18236 UA w Culture if Ind Standard on 03-15-2024 Breakpoint UA [facility] Comment on above: Performed By: #### 5 [id number], [id number], 6796075 ####[facility] (DEFAULT)[address] [place] [address] Color (U) Yellow [facility] Comment on above: Performed By: #### 5 [id number], [id number], 1881877 ####[facility] (DEFAULT)[address] [place] [address] Culture? Indicated Invalid Interpretation Code [facility] Comment on above: Result Comment: Resu lt created by rule GL_MAGR_ADD_UA_CULT Result created by rule GL_MAGR_ADD_UA_CULT Result created by rule GL_MAGR_ADD_UA_CULT1 Result created by rule GL_MAGR_ADD_UA_CULT Performed By: #### 5 [id number], [id number], 1279751 ####[facility] (DEFAULT)[address] [place] [address] 23523 Glucose (U) [Mass/Vol] Negative Normal [facility] Comment on above: Performed By: #### 5 [id number], [id number], 4966488 ####[facility] (DEFAULT)[address] [place] [address] 97195 Ketones Ql (U) Negative [facility] Comment on above: Performed By: #### 5 [id number], [id number], 7740847 ####[facility] (DEFAULT)[address] [place] [address] 99842 Micro? Indicated Invalid Interpretation Code [facility] Comment on above: Result Comment: Resu lt created by rule GL_MAGR_ADD_UA_MICRO Performed By: #### 5 [id number], [id number], 6433388 ####[facility] (DEFAULT)[address] [place] [address] 89892 UA Bilirubin Negative Normal [facility] Comment on above: Performed By: #### 5 [id number], [id number], 8138581 ####[facility] (DEFAULT)[address] [place] [address] 10999 UA Blood TRACE Abnormal NEGATIVE [facility] Comment on above: Performed By: #### 5 [id number], [id number], 4636806 ####[facility] (DEFAULT)[address] [place] [address] 99425 UA Clarity SL CLOUDY Abnormal CLEAR [facility] Comment on above: Performed By: #### 5 [id number], [id number], 8769324 ####[facility] (DEFAULT)[address] [place] [address] 87067 UA Leuk Est LARGE Abnormal NEGATIVE [facility] Comment on above: Performed By: #### 5 [id number], [id number], 3935934 ####[facility] (DEFAULT)[address] [place] [address] 25179 UA Nitrite Negative Normal NEGATIVE [facility] Comment on above: Performed By: #### 5 [id number], [id number], 8218523 ####[facility] (DEFAULT)[address] [place] [address] 91247 UA pH 6.0 Normal 5-8 [facility] Comment on above: Performed By: #### 5 [id number], [id number], [id number] ####[facility] (DEFAULT)[address] [place] [address] 28853 UA Protein Negative Normal NEGATIVE [facility] Comment on above: Performed By: #### 5 [id number], [id number], 7893465 ####[facility] (DEFAULT)[address] [place] [address] 65388 UA Spec Grav 1.015 Normal 1.001-1.035 [facility] Comment on above: Performed By: #### 5 [id number], [id number], 4498796 ####[facility] (DEFAULT)[address] [place] [address] 70213 UA Urobilinogen 0.2 mg/dL Normal 0.2-1.0 [facility] Comment on above: Performed By: #### 5 [id number], [id number], 7202689 ####[facility] (DEFAULT)[address] [place] [address] 08807 Urine Source Clean Catch Normal [facility] Comment on above: Performed By: #### 5 [id number], [id number], [id number] ####[facility] (DEFAULT)[address] [place] [address] 54128 XR Chest 1 View Frontalon XR Chest [...] MD 03/15/24 7:34 pm Technologist: Lizzy BRICEÑO [facility] Calcium [Mass/volume] in Ser um or PlasmaOrdered By: Dedrick Fuller on 08-15-2023 Calcium [Mass/Vol] 9.1 mg/dL 8.6-10.3 [facility] Carbon dioxide, total [Moles /volume] in Serum or PlasmaOrdered By: Dedrick Fuller on 08-15-2023 CO2 [Moles/Vol] 26.7 mmol/L 21.0-31.0 [facility] Chloride [Moles/volume] in S altagracia or PlasmaOrdered By: Dedrick Fuller on 08-15-2023 Chloride [Moles/Vol] 107 mmol/L 98-107 [facility] Cholesterol [Mass/volume] in Serum or PlasmaOrdered By: Dedrick Fuller on 08-15-2023 Cholesterol [Mass/Vol] 166 mg/dL 140-200 [facility] Comment on above: Chol less than 200 m g/dl low riskChol 201-239 mg/dl borderline riskChol 240 mg/dl and greater high risk Cholesterol in LDL Calc [Mas s/Vol]Ordered By: Dedrick Fuller on 08-15-2023 Cholesterol in LDL [Mass/Vol] 95 mg/dL 0-100 [facility] Comment on above: LDL ATP III CLASSIFI CATIONLDL less than 100 mg/dL OptimalLDL 100-129 mg/dL Near or above optimalLDL 130-159 mg/dL Borderline highLDL 160-189 mg/dL HighLDL greater than 189 mg/dL Very high Cholesterol in VLDL Calc [Ma ss/Vol]Ordered By: Dedrick Fuller on 09-15-2023 Cholesterol in VLDL [Mass/Vol] 32 mg/dL [facility] Creatinine [Mass/volume] in Serum or PlasmaOrdered By: Dedrick Fuller on 08-15-2023 Creatinine [Mass/Vol] 0.77 mg/dL 0.60-1.20 [facility] Glucose [Mass/volume] in Ser um or PlasmaOrdered By: Dedrick Fuller on 08-15-2023 Glucose [Mass/Vol] 97 mg/dL 70-100 [facility] Comment on above: ADA recommended refe rence rangeRandom Glucose Reference Range is dependent on time and content of last meal. Glucose of more than 200 mg/dL in a nonstressed, ambulatory subject supports the diagnosis of Diabetes Mellitus. No Panel InformationOrdered By: Dedrick Fuller on 08-15-2023 Estimated GFR (CKD-EPI) > 60.0 mL/Min [facility] Creatinine Clearance (Chem N/A [facility] Potassium [Moles/volume] in Serum or PlasmaOrdered By: Dedrick Fuller on 08-15-2023 Potassium [Moles/Vol] 4.0 mmol/L 3.5-5.1 [facility] Serum or plasma anion gap de terminationOrdered By: Dedrick Fuller on 08-15-2023 Anion gap [Moles/Vol] 10.3 mmol/L 6.0-15.0 [facility] Serum or plasma high density lipoprotein (HDL) cholesterol measurementOrdered By: Dedrick Fuller on 08-15-2023 Cholesterol in HDL [Mass/Vol] 39 mg/dL 23-92 [facility] Comment on above: HDL CHOL ATP-III CLA SSIFICATION Cardiovascular RiskHDL > or equal to 60 mg/dL LOWHDL < 40 mg/dL HIGH Serum or plasma total choles terol/high density lipoprotein (HDL) cholesterol mass ratOrdered By: Dedrick Fuller on 08-15-2023 Cholesterol.total/Mirta sterol in HDL [Mass ratio] 4.3 {ratio} <5.0 [facility] Sodium [Moles/volume] in Ser um or PlasmaOrdered By: Dedrick Fuller on 08-15-2023 Sodium [Moles/Vol] 140 mmol/L 136-145 [facility] Triglyceride [Mass/volume] i n Serum or PlasmaOrdered By: Dedrick Fuller on 08-15-2023 Triglyceride [Mass/Vol] 162 mg/dL 0-149 [facility] Comment on above: TRIG ATP III CLASSIF ICATIONTRIG less than 150 mg/dL NormalTRIG 150-199 mg/dL Borderline highTRIG 200-500 mg/dL High TRIG greater than 500 mg/dL Very highStandard traceable to the Center for Disease Conrtrol and Prevention (CDC) test method. Urea nitrogen [Mass/volume] in Serum or PlasmaOrdered By: Dedrick Fuller on 08-15-2023 Urea nitrogen [Mass/Vol] 10 mg/dL 7 [facility] GTT 2 HRon 11-09-2022 Glucose [Mass/Vol] 107 mg/dL Critically high 74-106 [facility] Comment on above: Performed By: #### U LG, CRP #### [facility] [address] [place] [address] [address] Soo Donnelly Glucose [Mass/Vol] 152 mg/dL Normal [facility] Comment on above: Performed By: #### U GL, CRP #### [facility] [address] [place] [address] [address] Soo Donnelly Glucose [Mass/Vol] 121 mg/dL Normal [facility] Comment on above: Performed By: #### U LG, CRP #### [facility] [address] [place] [address] [address] Soo Donnelly Facesheeton 11-05-2022 Facesheet [id number] .[id number]:127 Normal [facility] Physician Referralon 022 Physician Referral [id number] .[id number]:127 Normal [facility] CT ABD/PELV W CONon 10-01-[address] [...] ELENA SAUCEDA Date: 2022-10-01 10:31 Normal [facility] CBC AUTO DIFFon 09-18-2022 BASO # 0.0 103/ul Normal 0.0-0.1 [facility] Comment on above: Performed By: #### A NAD #### [facility] [address] [place] [address] Dr. Soo Donnelly Basophils/100 WBC (Bld) 0.4 % Normal 0.2-2.0 [facility] Comment on above: Performed By: #### A NAD #### [facility] [address] [place] [address] Dr. Soo Donnelly EO # 0.1 103/ul Normal 0.0-0.7 [facility] Comment on above: Performed By: #### A NAD #### [facility] [address] [place] [address] Dr. Soo Donnelly Eosinophils/100 WBC (Bld) 1.8 % Normal 0.9-7.0 [facility] Comment on above: Performed By: #### A NAD #### [facility] [address] [place] [address] Dr. Soo Donnelly Erythrocyte distribution width (RBC) [Ratio] 11.9 % Normal 11.0-15.0 [facility] Comment on above: Performed By: #### A NAD #### [facility] [address] [place] [address] Dr. Soo Donnelly Hematocrit (Bld) [Volume fraction] 43.9 % Normal 36.0-48.0 [facility] Comment on above: Performed By: #### A NAD #### [facility] [address] [place] [address] Dr. Soo Donnelly Hemoglobin (Bld) [Mass/Vol] 14.6 g/dL Normal 12.0-16.0 [facility] Comment on above: Performed By: #### A NAD #### [facility] [address] [place] [address] Dr. Soo Donnelly IG # 0.01 10e3/ul Normal 0.00-0.03 [facility] Comment on above: Performed By: #### A NAD #### [facility] [address] [place] [address] Dr. Soo Donnelly IG % 0.1 % Normal 0.0-0.5 [facility] Comment on above: Performed By: #### A NAD #### [facility] [address] [place] [address] Dr. Soo Donnelly LYMPH # 2.7 103/ul Normal 1.2-3.8 [facility] Comment on above: Performed By: #### A NAD #### [facility] [address] [place] [address] Dr. Soo Donnelly Lymphocytes/100 WBC (Bld) 39.9 % Normal 20.5-60.0 [facility] Comment on above: Performed By: #### A NAD #### [facility] [address] [place] [address] Dr. Soo Donnelly MANUAL DIFF REQ NO Normal [facility] Comment on above: Performed By: #### A NAD #### [facility] [address] [place] [address] Dr. Soo Donnelly MCH (RBC) [Entitic mass] 31.7 pg Normal 26.7-34.0 [facility] Comment on above: Performed By: #### A NAD #### [facility] [address] [place] [address] Dr. Soo Donnelly MCHC (RBC) [Mass/Vol] 33.3 g/dL Normal 29.9-35.2 [facility] Comment on above: Performed By: #### A NAD #### [facility] [address] [place] [address] Dr. Soo Donnelly MCV (RBC) [Entitic vol] 95.4 fL Normal 81.0-99.0 [facility] Comment on above: Performed By: #### A NAD #### [facility] [address] [place] [address] Dr. Soo Donnelly MONO # 0.4 103/ul Normal 0.3-0.8 [facility] Comment on above: Performed By: #### A NAD #### [facility] [address] [place] [address] Dr. Soo Donnelly Monocytes/100 WBC (Bld) 5.9 % Normal 1.7-12.0 [facility] Comment on above: Performed By: #### A NAD #### [facility] [address] [place] [address] Dr. Soo Donnelly NEUT # 3.5 103/ul Normal 1.4-6.5 [facility] Comment on above: Performed By: #### A NAD #### [facility] [address] [place] [address] Dr. Soo Donnelly Neutrophils/100 WBC (Bld) 51.9 % Normal 43.0-75.0 [facility] Comment on above: Performed By: #### A NAD #### [facility] [address] [place] [address] Dr. Soo Donnelly Platelet mean volume (Bld) [Entitic vol] 10.8 fL Normal 9.5-13.5 [facility] Comment on above: Performed By: #### A NAD #### [facility] [address] [place] [address] Dr. Soo Donnelly PLT 220 103/ul Normal 150-450 [facility] Comment on above: Performed By: #### A NAD #### [facility] [address] [place] [address] Dr. Soo Donnelly RBC 4.60 106/ul Normal 4.20-5.40 [facility] Comment on above: Performed By: #### A NAD #### [facility] [address] [place] [address] Dr. Soo Donnelly WBC 6.8 103/ul Normal 4.0-11.0 [facility] Comment on above: Performed By: #### A NAD #### [facility] [address] [place] [address] Dr. Soo Donnelly ER URINE PROFILEon 2 Bilirubin Ql (U) Negative Normal NEGATIVE [facility] Comment on above: Performed By: #### U LG, CRP #### [facility] [address] [place] [address] Dr. Soo Donnelly Clarity (U) CLEAR Normal CLEAR [facility] Comment on above: Performed By: #### U LG, CRP #### [facility] [address] [place] [address] Dr. Soo Donnelly Color (U) LT. YELLOW Normal YELLOW [facility] Comment on above: Performed By: #### U LG, CRP #### [facility] [address] [place] [address] Dr. Soo Donnelly ERUAHD A micrscopic examination will be performed if indicated. Normal [facility] Comment on above: Performed By: #### U LG, CRP #### [facility] [address] [place] [address] Dr. Soo Donnelly Glucose Ql (U) Negative Normal NEGATIVE [facility] Comment on above: Performed By: #### U LG, CRP #### [facility] [address] [address] [address] Soo Donnelly Hemoglobin Ql (U) Negative Normal NEGATIVE [facility] Comment on above: Performed By: #### U LG, CRP #### [facility] [address] [address] [address] Soo Donnelly Ketones Ql (U) Negative Normal NEGATIVE [facility] Comment on above: Performed By: #### U LG, CRP #### [facility] [address] [address] [address] Soo Donnelly LEUKOCYTES Negative Normal NEGATIVE [facility] Comment on above: Performed By: #### U LG, CRP #### [facility] [address] [address] [address] Soo Donnelly Nitrite Ql (U) Negative Normal NEGATIVE [facility] Comment on above: Performed By: #### U LG, CRP #### [facility] [address] [place] [address] Dr. Soo Donnelly pH (U) 6.0 [pH] Normal 5-9 [facility] Comment on above: Performed By: #### U LG, CRP #### [facility] [address] [place] [address] Dr. Soo Donnelly SPEC GRAVITY 1.015 Normal 1.005-<=1.02 5 [facility] Comment on above: Performed By: #### U LG, CRP #### [facility] [address] [place] [address] Dr. Soo Donnelly UA PROTEIN Negative Normal NEGATIVE/ TRACE [facility] Comment on above: Performed By: #### U LG, CRP #### [facility] [address] [address] [address] Soo Donnelly UR MICRO IND NOT INDICATED Normal [facility] [facility] Comment on above: Performed By: #### U LG, CRP #### [facility] [address] [address] [address] Soo Donnelly Urobilinogen Qn (U) 0.2 {Roma'U}/dL Normal 0.2 - 1. 0 [facility] Comment on above: Performed By: #### U LG, CRP #### [facility] [address] [address] [address] Soo Donnelly PROF CHEM 8 (BAS METB)on Anion gap [Moles/Vol] 10.2 mmol/L Normal [facility] Comment on above: Performed By: #### B MP #### [facility] [address] [address] [address] Soo Donnelly Calcium [Mass/Vol] 8.7 mg/dL Normal 8.5-10.1 [facility] Comment on above: Performed By: #### B MP #### [facility] [address] [address] [address] Soo Donnelly Chloride [Moles/Vol] 103 mmol/L Normal 98-107 [facility] Comment on above: Performed By: #### B MP #### [facility] [address] [place] [address] Dr. Soo Donnelly CO2 [Moles/Vol] 27.9 mmol/L Normal 21.0-32.0 [facility] Comment on above: Performed By: #### B MP #### [facility] [address] [place] [address] Dr. Soo Donnelly Creatinine [Mass/Vol] 0.80 mg/dL Normal 0.55-1.02 [facility] Comment on above: Performed By: #### B MP #### [facility] [address] [place] [address] Dr. Soo Donnelly EGFR-AF LIBERIAN >60 Normal >=60 [facility] Comment on above: Performed By: #### B MP #### [facility] [address] [place] [address] Dr. Soo Donnelly EGFR-NON AF LIBERIAN >60 Normal >=60 [facility] Comment on above: Performed By: #### B MP #### [facility] [address] [place] [address] Dr. Soo Donnelly Glucose [Mass/Vol] 103 mg/dL Normal 74-106 [facility] Comment on above: Performed By: #### B MP #### [facility] [address] [place] [address] Dr. Soo Donnelly Potassium [Moles/Vol] 4.1 mmol/L Normal 3.5-5.1 [facility] Comment on above: Performed By: #### B MP #### [facility] [address] [address] [address] Soo Donnelly Sodium [Moles/Vol] 137 mmol/L Normal 136-145 [facility] Comment on above: Performed By: #### B MP #### [facility] [address] [address] [address] Soo Donnelly Urea nitrogen [Mass/Vol] 11.0 mg/dL Normal 7.0-18.0 [facility] Comment on above: Performed By: #### B MP #### [facility] [address] [address] [address] Soo Donnelly Urea nitrogen/Creatinine [Mass ratio] 13.8 mg/mg Normal [facility] Comment on above: Performed By: #### B MP #### [facility] [address] [address] [address] Soo Donnelly XR KUB 1 VIEWon [...] LUZ ELENA SAUCEDA Date: 2022-09-18 12:12 Normal [facility] MG MAMM SCREEN 3D DEAN CADon 09-12-2022 MG MAMM SCREEN 3D DEAN CAD Patient: PAIGE KEATING Exam Date: 09/12/2022 : 1975 Gender:F Ordering : DR AURA MURILLO . Admission #: [id number] Family : Order #: [id number] CLICK HERE TO VIEW EXAM RADIOLOGY REPORT [...] ovarian cancer at age 77. LOCATION: [facility] BREAST COMPOSITION: Scattered areas fibroglandular density. [...] MD on 09/13/2022 at 07:44 Approved by: Abiagil Sheehan MD on 09/13/2022 at 07:46 Normal [facility] INSULINon 07-20-2022 Insulin 25.5 uIU/mL Critically high 2.6-24.9 [facility] Comment on above: Performed By: #### U LG, CRP #### [facility] [address] [place] [address] Dr. Soo Donnelly T4 LABCORPon 07-20-2022 T4 [Mass/Vol] 7.4 ug/dL Normal 4.5-12.0 [facility] Comment on above: Performed By: #### A NAD #### [facility] [address] [place] [address] Dr. Soo Donnelly CBC W MANUAL DIFFon 07-19-20 22 ATYPICAL LYMPH # Normal [facility] Comment on above: Performed By: #### B UN, CREA #### [facility] [address] [place] [address] Dr. Soo Donnelly ATYPICAL LYMPH % Normal [facility] Comment on above: Performed By: #### B UN, CREA #### [facility] [address] [place] [address] Dr. Soo Donnelly BAND # Normal 0.0-0.3 [facility] Comment on above: Performed By: #### B UN, CREA #### [facility] [address] [place] [address] Dr. Soo Donnelly BAND % Normal 0-5 [facility] Comment on above: Performed By: #### B UN, CREA #### [facility] [address] [place] [address] Dr. Soo Donnelly BASOM # 0.00 103/ul Normal 0.00-0.10 [facility] Comment on above: Performed By: #### B UN, CREA #### [facility] [address] [place] [address] Dr. Soo Donnelly BASOM % 0.0 % Critically low 0.2-2.0 [facility] Comment on above: Performed By: #### B UN, CREA #### [facility] [address] [place] [address] Dr. Soo Donnelly BLAST # Normal [facility] Comment on above: Performed By: #### B UN, CREA #### [facility] [address] [place] [address] Dr. Soo Donnelly BLAST % Normal [facility] Comment on above: Performed By: #### B UN, CREA #### [facility] [address] [place] [address] Dr. Soo Donnelly CORRECTED WBC Normal 4.0-11.0 [facility] Comment on above: Performed By: #### B UN, CREA #### [facility] [address] [place] [address] Dr. Soo Donnelly EOS # 0.31 103/ul Normal 0.00-0.70 [facility] Comment on above: Performed By: #### B UN, CREA #### [facility] [address] [place] [address] Dr. Soo Donnelly EOS% 2.0 % Normal 0.9-7.0 [facility] Comment on above: Performed By: #### B UN, CREA #### [facility] [address] [place] [address] Dr. Soo Donnelly HCT 41.6 % Normal 36.0-48.0 [facility] Comment on above: Performed By: #### B UN, CREA #### [facility] [address] [place] [address] Dr. Soo Donnelly HGB 13.8 g/dl Normal 12.0-16.0 [facility] Comment on above: Performed By: #### B UN, CREA #### [facility] [address] [place] [address] Dr. Soo Donnelly LYMPHM # 5.27 103/ul Critically high 1.20-3.80 [facility] Comment on above: Performed By: #### B UN, CREA #### [facility] [address] [place] [address] Dr. Soo Donnelly LYMPHM% 34.0 % Normal 20.5-60.0 [facility] Comment on above: Performed By: #### B UN, CREA #### [facility] [address] [place] [address] Dr. Soo Donnelly MCH 31.5 pg Normal 26.7-34.0 [facility] Comment on above: Performed By: #### B UN, CREA #### [facility] [address] [place] [address] Dr. Soo Donnelly MCHC 33.2 g/dl Normal 29.9-35.2 [facility] Comment on above: Performed By: #### B UN, CREA #### [facility] [address] [place] [address] Dr. Soo Donnelly MCV 95.0 fL Normal 81.0-99.0 [facility] Comment on above: Performed By: #### B UN, CREA #### [facility] [address] [place] [address] Dr. Soo Donnelly METAMYELOCYTE # Normal [facility] Comment on above: Performed By: #### B UN, CREA #### [facility] [address] [place] [address] Dr. Soo Donnelly METAMYELOCYTE % Normal [facility] Comment on above: Performed By: #### B UN, CREA #### [facility] [address] [place] [address] Dr. Soo Donnelly MONOM# 0.93 103/ul Critically high 0.30-0.80 [facility] Comment on above: Performed By: #### B UN, CREA #### [facility] [address] [place] [address] Dr. Soo Donnelly MONOM% 6.0 % Normal 1.7-12.0 [facility] Comment on above: Performed By: #### B UN, CREA #### [facility] [address] [place] [address] Dr. Soo Donnelly MPV 10.1 fL Normal 9.5-13.5 [facility] Comment on above: Performed By: #### B UN, CREA #### [facility] [address] [place] [address] Dr. Soo Donnelly MYELOCYTE # Normal [facility] Comment on above: Performed By: #### B UN, CREA #### [facility] [address] [place] [address] Dr. Soo Donnelly MYELOCYTE % Normal [facility] Comment on above: Performed By: #### B UN, CREA #### [facility] [address] [place] [address] Dr. Soo Donnelly NRBC Normal [facility] Comment on above: Performed By: #### B UN, CREA #### [facility] [address] [place] [address] Dr. Soo Donnelly PLT 260 103/ul Normal 150-450 [facility] Comment on above: Performed By: #### B UN, CREA #### [facility] [address] [place] [address] Dr. Soo Donnelly RBC 4.38 106/ul Normal 4.20-5.40 [facility] Comment on above: Performed By: #### B UN, CREA #### [facility] [address] [place] [address] Dr. Soo Donnelly RDW 12.5 % Normal 11.0-15.0 [facility] Comment on above: Performed By: #### B UN, CREA #### [facility] [address] [address] [address] Soo Donnelly SEG # 8.99 103/ul Critically high 1.40-6.50 [facility] Comment on above: Performed By: #### B UN, CREA #### [facility] [address] [address] [address] Soo Donnelly SEG % 58.0 % Normal 43.0-75.0 [facility] Comment on above: Performed By: #### B UN, CREA #### [facility] [address] [place] [address] Dr. Soo Donnelly WBC 15.5 103/ul Critically high 4.0-11.0 [facility] Comment on above: Performed By: #### B UN, CREA #### [facility] [address] [place] [address] Dr. Soo Donnelly FREE T3on 07-19-2022 FREE T3 2.62 pg/mlL Normal 2.18-3.98 [facility] Comment on above: Performed By: #### U LG, CRP #### [facility] [address] [place] [address] Dr. Soo Donnelly GLYCOHEMOGLOBIN A1Con 2021 ADA RECOMMENDATION SEE BELOW Normal [facility] Comment on above: Result Comment: ADA RECOMMENDED LIMIT 4.0 - 6.0 ADA THERAPEUTIC TARGET < 7.0 ACTION SUGGESTED > 7.0 Performed By: #### U LG, CRP #### [facility] [address] [place] [address] Dr. Soo Donnelly Glucose [Mass/Vol] 137 mg/dL Normal [facility] Comment on above: Performed By: #### U LG, CRP #### [facility] [address] [place] [address] Dr. Soo Donnelly HbA1c (Bld) [Mass fraction] 6.4 % Critically high 4.5-6.2 [facility] Comment on above: Performed By: #### U LG, CRP #### [facility] [address] [place] [address] Dr. Soo Donnelly LIPID PROFILEon 07-19-2022 CHOL-HDL RATIO NORM SEE BELOW Normal [facility] Comment on above: Result Comment: 3.3 - 4.4 LOW RISK 4.4 - 7.1 AVERAGE RISK 7.1 - 11.0 MODERATE RISK >11.0 HIGH RISK Performed By: #### U LG, CRP #### [facility] [address] [place], [place] [address] Dr. Soo Donnelly Cholesterol [Mass/Vol] 226 mg/dL Critically high <=200 [facility] Comment on above: Performed By: #### U LG, CRP #### [facility] [address] [address] [address] Soo Donnelly Cholesterol in HDL [Mass/Vol] 33 mg/dL Critically low 40-60 [facility] Comment on above: Performed By: #### U LG, CRP #### [facility] [address] [address] [address] Soo Donnelly Cholesterol in LDL [Mass/Vol] 135.2 mg/dL Normal [facility] Comment on above: Performed By: #### U LG, CRP #### [facility] [address] [address] [address] Soo Donnelly Cholesterol.total/Mirta sterol in HDL [Mass ratio] 6.8 {ratio} Normal [facility] Comment on above: Performed By: #### U LG, CRP #### [facility] [address] [address] [address] Soo Donnelly HDL NORMAL > or = 60 mg/dl - LO W CARDIOVASCULAR RISK <40 mg/dl - HIGH CARDIOVASCULAR RISK Normal [facility] Comment on above: Performed By: #### U LG, CRP #### [facility] [address] [address] [address] Soo Donnelly LDL CALC NORMAL SEE BELOW Normal [facility] Comment on above: Result Comment: <100 mg/dl OPTIMAL 100 - 129 mg/dl NEAR OR ABOVE OPTIMAL 130 - 159 mg/dl BORDERLINE HIGH 160 - 189 mg/dl HIGH >190 mg/dl VERY HIGH Performed By: #### U LG, CRP #### [facility] [address] [address] [address] Soo Donnelly Triglyceride [Mass/Vol] 289 mg/dL Critically high <=150 [facility] Comment on above: Performed By: #### U LG, CRP #### [facility] [address] [address] [address] Soo Donnelly VLDL CALC 57.8 mg/dL Normal [facility] Comment on above: Performed By: #### U LG, CRP #### [facility] [address] [address] [address] Soo Donnelly PROF 14(COMP METB)on 022 Albumin [Mass/Vol] 3.2 g/dL Critically low 3.4-5.0 [facility] Comment on above: Performed By: #### U LG, CRP #### [facility] [address] [address] [address] Soo Donnelly Albumin/Globulin [Mass ratio] 1.1 {ratio} Normal [facility] Comment on above: Performed By: #### U LG, CRP #### [facility] [address] [address] [address] Soo Donnelly ALP [Catalytic activity/Vol] 41 U/L Critically low 46-116 [facility] Comment on above: Performed By: #### U LG, CRP #### [facility] [address] [address] [address] Soo Donnelly ALT [Catalytic activity/Vol] 46 U/L Normal 14-59 [facility] Comment on above: Performed By: #### U LG, CRP #### [facility] [address] [address] [address] Soo Donnelly Anion gap [Moles/Vol] 9.3 mmol/L Normal [facility] Comment on above: Performed By: #### U LG, CRP #### [facility] [address] [address] [address] Soo Donnelly AST [Catalytic activity/Vol] 18 U/L Normal 15-37 [facility] Comment on above: Performed By: #### U LG, CRP #### [facility] [address] [address] [address] Soo Donnelly Bilirubin [Mass/Vol] 0.7 mg/dL Normal 0.2-1.0 [facility] Comment on above: Performed By: #### U LG, CRP #### [facility] [address] [place] [address] Dr. Soo Donnelly Calcium [Mass/Vol] 8.1 mg/dL Critically low 8.5-10.1 [facility] Comment on above: Performed By: #### U LG, CRP #### [facility] [address] [place] [address] Dr. Soo Donnelly Chloride [Moles/Vol] 101 mmol/L Normal 98-107 [facility] Comment on above: Performed By: #### U LG, CRP #### [facility] [address] [place] [address] Dr. Soo Donnelly CO2 [Moles/Vol] 31.1 mmol/L Normal 21.0-32.0 [facility] Comment on above: Performed By: #### U LG, CRP #### [facility] [address] [place] [address] Dr. Soo Donnelly Creatinine [Mass/Vol] 0.77 mg/dL Normal 0.55-1.02 [facility] Comment on above: Performed By: #### U LG, CRP #### [facility] [address] [place] [address] Dr. Soo Donnelly EGFR-AF LIBERIAN >60 Normal >=60 [facility] Comment on above: Performed By: #### U LG, CRP #### [facility] [address] [place] [address] Dr. Soo Donnelly EGFR-NON AF LIBERIAN >60 Normal >=60 [facility] Comment on above: Performed By: #### U LG, CRP #### [facility] [address] [place] [address] Dr. Soo Donnelly Globulin (S) [Mass/Vol] 3.0 g/dL Normal [facility] Comment on above: Performed By: #### U LG, CRP #### [facility] [address] [place] [address] Dr. Soo Donnelly Glucose [Mass/Vol] 104 mg/dL Normal 74-106 [facility] Comment on above: Performed By: #### U LG, CRP #### [facility] [address] [place] [address] Dr. Soo Donnelly Potassium [Moles/Vol] 3.4 mmol/L Critically low 3.5-5.1 [facility] Comment on above: Performed By: #### U LG, CRP #### [facility] [address] [place] [address] Dr. Soo Donnelly Protein [Mass/Vol] 6.2 g/dL Critically low 6.4-8.2 [facility] Comment on above: Performed By: #### U LG, CRP #### [facility] [address] [place] [address] Dr. Soo Donnelly Sodium [Moles/Vol] 138 mmol/L Normal 136-145 [facility] Comment on above: Performed By: #### U LG, CRP #### [facility] [address] [place] [address] Dr. Soo Donnelly Urea nitrogen [Mass/Vol] 16.0 mg/dL Normal 7.0-18.0 [facility] Comment on above: Performed By: #### U LG, CRP #### [facility] [address] [place] [address] Dr. Soo Donnelly Urea nitrogen/Creatinine [Mass ratio] 20.8 mg/mg Normal [facility] Comment on above: Performed By: #### U LG, CRP #### [facility] [address] [place] [address] Dr. Soo Donnelly TSHon 07-19-2022 TSH 3.262 uIU/mL Normal 0.358-3.740 [facility] Comment on above: Performed By: #### U LG, CRP #### [facility] [address] [place] [address] Dr. Soo Donnelly CBC AUTO DIFFon 05-18-2022 BASO # 0.0 103/ul Normal 0.0-0.1 [facility] Comment on above: Performed By: #### U LG, CRP #### [facility] [address] [address] [address] Soo Donnelly Basophils/100 WBC (Bld) 0.2 % Normal 0.2-2.0 [facility] Comment on above: Performed By: #### U LG, CRP #### [facility] [address] [address] [address] Soo Donnelly EO # 0.0 103/ul Normal 0.0-0.7 [facility] Comment on above: Performed By: #### U LG, CRP #### [facility] [address] [address] [address] Soo Donnelly Eosinophils/100 WBC (Bld) 0.2 % Critically low 0.9-7.0 [facility] Comment on above: Performed By: #### U LG, CRP #### [facility] [address] [place] [address] Dr. Soo Donnelly Erythrocyte distribution width (RBC) [Ratio] 12.8 % Normal 11.0-15.0 [facility] Comment on above: Performed By: #### U LG, CRP #### [facility] [address] [address] [address] Soo Donnelly Hematocrit (Bld) [Volume fraction] 35.7 % Critically low 36.0-48.0 [facility] Comment on above: Performed By: #### U LG, CRP #### [facility] [address] [address] [address] Soo Donnelly Hemoglobin (Bld) [Mass/Vol] 11.5 g/dL Critically low 12.0-16.0 [facility] Comment on above: Performed By: #### U LG, CRP #### [facility] [address] [address] [address] Soo Donnelly IG # 0.07 10e3/ul Critically high 0.00-0.03 [facility] Comment on above: Performed By: #### U LG, CRP #### [facility] [address] [address] [address] Soo Donnelly IG % 0.5 % Normal 0.0-0.5 [facility] Comment on above: Performed By: #### U LG, CRP #### [facility] [address] [address] [address] Soo Donnelly LYMPH # 4.1 103/ul Critically high 1.2-3.8 [facility] Comment on above: Performed By: #### U LG, CRP #### [facility] [address] [address] [address] Soo Donnelly Lymphocytes/100 WBC (Bld) 28.3 % Normal 20.5-60.0 [facility] Comment on above: Performed By: #### U LG, CRP #### [facility] [address] [address] [address] Soo Donnelly MANUAL DIFF REQ NO Normal [facility] Comment on above: Performed By: #### U LG, CRP #### [facility] [address] [address] [address] Soo Donnelly MCH (RBC) [Entitic mass] 31.7 pg Normal 26.7-34.0 [facility] Comment on above: Performed By: #### U LG, CRP #### [facility] [address] [address] [address] Soo Donnelly MCHC (RBC) [Mass/Vol] 32.2 g/dL Normal 29.9-35.2 [facility] Comment on above: Performed By: #### U LG, CRP #### [facility] [address] [address] [address] Soo Donnelly MCV (RBC) [Entitic vol] 98.3 fL Normal 81.0-99.0 [facility] Comment on above: Performed By: #### U LG, CRP #### [facility] [address] [address] [address] Soo Donnelly MONO # 0.8 103/ul Normal 0.3-0.8 [facility] Comment on above: Performed By: #### U LG, CRP #### [facility] [address] [address] [address] Soo Donnelly Monocytes/100 WBC (Bld) 5.6 % Normal 1.7-12.0 [facility] Comment on above: Performed By: #### U LG, CRP #### [facility] [address] [address] [address] Soo Donnelly NEUT # 9.4 103/ul Critically high 1.4-6.5 [facility] Comment on above: Performed By: #### U LG, CRP #### [facility] [address] [place] [address] Dr. Soo Donnelly Neutrophils/100 WBC (Bld) 65.2 % Normal 43.0-75.0 [facility] Comment on above: Performed By: #### U LG, CRP #### [facility] [address] [place] [address] Dr. Soo Donnelly Platelet mean volume (Bld) [Entitic vol] 10.8 fL Normal 9.5-13.5 [facility] Comment on above: Performed By: #### U LG, CRP #### [facility] [address] [place] [address] Dr. Soo Donnelly PLT 191 103/ul Normal 150-450 [facility] Comment on above: Performed By: #### U LG, CRP #### [facility] [address] [place] [address] Dr. Soo Donnelly RBC 3.63 106/ul Critically low 4.20-5.40 [facility] Comment on above: Performed By: #### U LG, CRP #### [facility] [address] [place] [address] Dr. Soo Donnelly WBC 14.4 103/ul Critically high 4.0-11.0 [facility] Comment on above: Performed By: #### U LG, CRP #### [facility] [address] [place] [address] Dr. Soo Burdick 05-17-2022 Urea nitrogen [Mass/Vol] 8.0 mg/dL Normal 7.0-18.0 [facility] Comment on above: Performed By: #### B UN, CREA #### [facility] [address] [place] [address] Dr. Soo Donnelly CBC AUTO DIFFon 05-17-2022 BASO # 0.0 103/ul Normal 0.0-0.1 [facility] Comment on above: Performed By: #### U LG, CRP #### [facility] [address] [place] [address] Dr. Soo Donnelly Basophils/100 WBC (Bld) 0.1 % Critically low 0.2-2.0 [facility] Comment on above: Performed By: #### U LG, CRP #### [facility] [address] [place] [address] Dr. Soo Donnelly EO # 0.0 103/ul Normal 0.0-0.7 [facility] Comment on above: Performed By: #### U LG, CRP #### [facility] [address] [place] [address] Dr. Soo Donnelly Eosinophils/100 WBC (Bld) 0.0 % Critically low 0.9-7.0 [facility] Comment on above: Performed By: #### U LG, CRP #### [facility] [address] [place] [address] Dr. Soo Donnelly Erythrocyte distribution width (RBC) [Ratio] 12.5 % Normal 11.0-15.0 [facility] Comment on above: Performed By: #### U LG, CRP #### [facility] [address] [place] [address] Dr. Soo Donnelly Hematocrit (Bld) [Volume fraction] 38.5 % Normal 36.0-48.0 [facility] Comment on above: Performed By: #### U LG, CRP #### [facility] [address] [place] [address] Dr. Soo Donnelly Hemoglobin (Bld) [Mass/Vol] 13.0 g/dL Normal 12.0-16.0 [facility] Comment on above: Performed By: #### U LG, CRP #### [facility] [address] [place] [address] Dr. Soo Donnelly IG # 0.16 10e3/ul Critically high 0.00-0.03 [facility] Comment on above: Performed By: #### U LG, CRP #### [facility] [address] [address] [address] Soo Donnelly IG % 0.7 % Critically high 0.0-0.5 [facility] Comment on above: Performed By: #### U LG, CRP #### [facility] [address] [address] [address] Soo Donnelly LYMPH # 3.0 103/ul Normal 1.2-3.8 [facility] Comment on above: Performed By: #### U LG, CRP #### [facility] [address] [address] [address] Soo Donnelly Lymphocytes/100 WBC (Bld) 12.2 % Critically low 20.5-60.0 [facility] Comment on above: Performed By: #### U LG, CRP #### [facility] [address] [place] [address] Dr. Soo Donnelly MANUAL DIFF REQ NO Normal [facility] Comment on above: Performed By: #### U LG, CRP #### [facility] [address] [address] [address] Soo Donnelly MCH (RBC) [Entitic mass] 32.4 pg Normal 26.7-34.0 [facility] Comment on above: Performed By: #### U LG, CRP #### [facility] [address] [address] [address] Soo Donnelly MCHC (RBC) [Mass/Vol] 33.8 g/dL Normal 29.9-35.2 [facility] Comment on above: Performed By: #### U LG, CRP #### [facility] [address] [address] [address] Soo Donnelly MCV (RBC) [Entitic vol] 96.0 fL Normal 81.0-99.0 [facility] Comment on above: Performed By: #### U LG, CRP #### [facility] [address] [address] [address] Soo Donnelly MONO # 1.3 103/ul Critically high 0.3-0.8 [facility] Comment on above: Performed By: #### U LG, CRP #### [facility] [address] [address] [address] Soo Donnelly Monocytes/100 WBC (Bld) 5.4 % Normal 1.7-12.0 [facility] Comment on above: Performed By: #### U LG, CRP #### [facility] [address] [address] [address] Soo Donnelly NEUT # 19.8 103/ul Critically high 1.4-6.5 [facility] Comment on above: Performed By: #### U LG, CRP #### [facility] [address] [address] [address] Soo Donnelly Neutrophils/100 WBC (Bld) 81.6 % Critically high 43.0-75.0 [facility] Comment on above: Performed By: #### U LG, CRP #### [facility] [address] [place] [address] Dr. Soo Donnelly Platelet mean volume (Bld) [Entitic vol] 10.5 fL Normal 9.5-13.5 [facility] Comment on above: Performed By: #### U LG, CRP #### [facility] [address] [place] [address] Dr. Soo Donnelly PLT 253 103/ul Normal 150-450 [facility] Comment on above: Performed By: #### U LG, CRP #### [facility] [address] [address] [address] Soo Donnelly RBC 4.01 106/ul Critically low 4.20-5.40 [facility] Comment on above: Performed By: #### U LG, CRP #### [facility] [address] [address] [address] Soo Donnelly WBC 24.3 103/ul Critically high 4.0-11.0 [facility] Comment on above: Performed By: #### U LG, CRP #### [facility] [address] [place] [address] Dr. Soo Donnelly BASO # 0.0 103/ul Normal 0.0-0.1 [facility] Comment on above: Performed By: #### U LG, CRP #### [facility] [address] [address] [address] Soo Donnelly Basophils/100 WBC (Bld) 0.1 % Critically low 0.2-2.0 [facility] Comment on above: Performed By: #### U LG, CRP #### [facility] [address] [place] [address] Dr. Soo Donnelly EO # 0.0 103/ul Normal 0.0-0.7 [facility] Comment on above: Performed By: #### U LG, CRP #### [facility] [address] [place] [address] Dr. Soo Donnelly Eosinophils/100 WBC (Bld) 0.0 % Critically low 0.9-7.0 [facility] Comment on above: Performed By: #### U LG, CRP #### [facility] [address] [place] [address] Dr. Soo Donnelly Erythrocyte distribution width (RBC) [Ratio] 12.3 % Normal 11.0-15.0 [facility] Comment on above: Performed By: #### U LG, CRP #### [facility] [address] [place] [address] Dr. Soo Donnelly Hematocrit (Bld) [Volume fraction] 41.2 % Normal 36.0-48.0 [facility] Comment on above: Performed By: #### U LG, CRP #### [facility] [address] [place] [address] Dr. Soo Donnelly Hemoglobin (Bld) [Mass/Vol] 13.5 g/dL Normal 12.0-16.0 [facility] Comment on above: Performed By: #### U LG, CRP #### [facility] [address] [place] [address] Dr. Soo Donnelly IG # 0.11 10e3/ul Critically high 0.00-0.03 [facility] Comment on above: Performed By: #### U LG, CRP #### [facility] [address] [place] [address] Dr. Soo Donnelly IG % 0.5 % Normal 0.0-0.5 [facility] Comment on above: Performed By: #### U LG, CRP #### [facility] [address] [place] [address] Dr. Soo Donnelly LYMPH # 1.6 103/ul Normal 1.2-3.8 [facility] Comment on above: Performed By: #### U LG, CRP #### [facility] [address] [place] [address] Dr. Soo Donnelly Lymphocytes/100 WBC (Bld) 7.8 % Critically low 20.5-60.0 [facility] Comment on above: Performed By: #### U LG, CRP #### [facility] [address] [place] [address] Dr. Soo Donnelly MANUAL DIFF REQ NO Normal [facility] Comment on above: Performed By: #### U LG, CRP #### [facility] [address] [place] [address] Dr. Soo Donnelly MCH (RBC) [Entitic mass] 31.8 pg Normal 26.7-34.0 [facility] Comment on above: Performed By: #### U LG, CRP #### [facility] [address] [place] [address] Dr. Soo Donnelly MCHC (RBC) [Mass/Vol] 32.8 g/dL Normal 29.9-35.2 [facility] Comment on above: Performed By: #### U LG, CRP #### [facility] [address] [place] [address] Dr. Soo Donnelly MCV (RBC) [Entitic vol] 96.9 fL Normal 81.0-99.0 [facility] Comment on above: Performed By: #### U LG, CRP #### [facility] [address] [place] [address] Dr. Soo Donnelly MONO # 0.4 103/ul Normal 0.3-0.8 [facility] Comment on above: Performed By: #### U LG, CRP #### [facility] [address] [place] [address] Dr. Soo Donnelly Monocytes/100 WBC (Bld) 2.0 % Normal 1.7-12.0 [facility] Comment on above: Performed By: #### U LG, CRP #### [facility] [address] [place] [address] Dr. Soo Donnelly NEUT # 18.1 103/ul Critically high 1.4-6.5 [facility] Comment on above: Performed By: #### U LG, CRP #### [facility] [address] [place] [address] Dr. Soo Donnelly Neutrophils/100 WBC (Bld) 89.6 % Critically high 43.0-75.0 [facility] Comment on above: Performed By: #### U LG, CRP #### [facility] [address] [place] [address] Dr. Soo Donnelly Platelet mean volume (Bld) [Entitic vol] 11.0 fL Normal 9.5-13.5 [facility] Comment on above: Performed By: #### U LG, CRP #### [facility] [address] [place] [address] Dr. Soo Donnelly PLT 223 103/ul Normal 150-450 [facility] Comment on above: Performed By: #### U LG, CRP #### [facility] [address] [place] [address] Dr. Soo Donnelly RBC 4.25 106/ul Normal 4.20-5.40 [facility] Comment on above: Performed By: #### U LG, CRP #### [facility] [address] [place] [address] Dr. Soo Donnelly WBC 20.2 103/ul Critically high 4.0-11.0 [facility] Comment on above: Performed By: #### U LG, CRP #### [facility] [address] [place] [address] Dr. Soo Donnelly CREATININEon 05-17-2022 Creatinine [Mass/Vol] 0.97 mg/dL Normal 0.55-1.02 [facility] Comment on above: Performed By: #### B UN, CREA #### [facility] [address] [place] [address] Dr. Soo Donnelly EGFR-AF LIBERIAN >60 Normal >=60 [facility] Comment on above: Performed By: #### B UN, CREA #### [facility] [address] [place], [place] [address] Dr. Soo Donnelly EGFR-NON AF LIBERIAN >60 Normal >=60 [facility] Comment on above: Performed By: #### B UN, CREA #### [facility] [address] [place], [place] [address] Dr. Soo Donnelly CTA CHEST WO W [...] LUZ ELENA SAUCEDA Date: 2022-05-17 16:40 Normal [facility] XR CHEST 2 Von 05-17-2022 XR [...] SAMI JONES Date: 2022-05-17 16:10 Normal [facility] CBC AUTO DIFFon 05-16-2022 BASO # 0.1 103/ul Normal 0.0-0.1 [facility] Comment on above: Performed By: #### B UN, CREA #### [facility] [address] [place] [address] Dr. Soo Donnelly Basophils/100 WBC (Bld) 0.5 % Normal 0.2-2.0 [facility] Comment on above: Performed By: #### B UN, CREA #### [facility] [address] [place] [address] Dr. Soo Donnelly EO # 0.1 103/ul Normal 0.0-0.7 [facility] Comment on above: Performed By: #### B UN, CREA #### [facility] [address] [place] [address] Dr. Soo Donnelly Eosinophils/100 WBC (Bld) 1.0 % Normal 0.9-7.0 [facility] Comment on above: Performed By: #### B UN, CREA #### [facility] [address] [place] [address] Dr. Soo Donnelly Erythrocyte distribution width (RBC) [Ratio] 12.2 % Normal 11.0-15.0 [facility] Comment on above: Performed By: #### B UN, CREA #### [facility] [address] [place] [address] Dr. Soo Donnelly Hematocrit (Bld) [Volume fraction] 41.2 % Normal 36.0-48.0 [facility] Comment on above: Performed By: #### B UN, CREA #### [facility] [address] [place] [address] Dr. Soo Donnelyl Hemoglobin (Bld) [Mass/Vol] 13.9 g/dL Normal 12.0-16.0 [facility] Comment on above: Performed By: #### B UN, CREA #### [facility] [address] [address] [address] Soo Donnelly IG # 0.04 10e3/ul Critically high 0.00-0.03 [facility] Comment on above: Performed By: #### B UN, CREA #### [facility] [address] [address] [address] Soo Donnelly IG % 0.4 % Normal 0.0-0.5 [facility] Comment on above: Performed By: #### B UN, CREA #### [facility] [address] [address] [address] Soo Donnelly LYMPH # 3.5 103/ul Normal 1.2-3.8 [facility] Comment on above: Performed By: #### B UN, CREA #### [facility] [address] [place] [address] Dr. Soo Donnelly Lymphocytes/100 WBC (Bld) 35.3 % Normal 20.5-60.0 [facility] Comment on above: Performed By: #### B UN, CREA #### [facility] [address] [place] [address] Dr. Soo Donnelly MANUAL DIFF REQ NO Normal [facility] Comment on above: Performed By: #### B UN, CREA #### [facility] [address] [place] [address] Dr. Soo Donnelly MCH (RBC) [Entitic mass] 31.7 pg Normal 26.7-34.0 [facility] Comment on above: Performed By: #### B UN, CREA #### [facility] [address] [place] [address] Dr. Soo Donnelly MCHC (RBC) [Mass/Vol] 33.7 g/dL Normal 29.9-35.2 [facility] Comment on above: Performed By: #### B UN, CREA #### [facility] [address] [place] [address] Dr. Soo Donnelly MCV (RBC) [Entitic vol] 94.1 fL Normal 81.0-99.0 [facility] Comment on above: Performed By: #### B UN, CREA #### [facility] [address] [place] [address] Dr. Soo Donnelly MONO # 0.5 103/ul Normal 0.3-0.8 [facility] Comment on above: Performed By: #### B UN, CREA #### [facility] [address] [place] [address] Dr. Soo Donnelly Monocytes/100 WBC (Bld) 5.4 % Normal 1.7-12.0 [facility] Comment on above: Performed By: #### B UN, CREA #### [facility] [address] [place] [address] Dr. Soo Donnelly NEUT # 5.6 103/ul Normal 1.4-6.5 [facility] Comment on above: Performed By: #### B UN, CREA #### [facility] [address] [place] [address] Dr. Soo Donnelly Neutrophils/100 WBC (Bld) 57.4 % Normal 43.0-75.0 [facility] Comment on above: Performed By: #### B UN, CREA #### [facility] [address] [place] [address] Dr. Soo Donnelly Platelet mean volume (Bld) [Entitic vol] 10.3 fL Normal 9.5-13.5 [facility] Comment on above: Performed By: #### B UN, CREA #### [facility] [address] [place] [address] Dr. Soo Donnelly PLT 235 103/ul Normal 150-450 [facility] Comment on above: Performed By: #### B UN, CREA #### [facility] [address] [place] [address] Dr. Soo Donnelly RBC 4.38 106/ul Normal 4.20-5.40 [facility] Comment on above: Performed By: #### B UN, CREA #### [facility] [address] [place] [address] Dr. Soo Donnelly WBC 9.8 103/ul Normal 4.0-11.0 [facility] Comment on above: Performed By: #### B UN, CREA #### [facility] [address] [address] [address] Soo Donnelly PREG QUANT HCGon 05-16-2022 HCG QUANT <1 Normal [facility] Comment on above: Performed By: #### U LG, CRP #### [facility] [address] [address] [address] Soo Donnelly HCG RANGE SEE BELOW Normal [facility] Comment on above: Result Comment: 5-50 0-1 WEEK 40-300 1-2 WEEKS 100-1,000 2-3 WEEKS 500-6,000 3-4 WEEKS 5,000-200,000 1-2 MONTHS 10,000-100,000 2-3 MONTHS 3,000-50,000 2ND TRIMESTER 1,000-50,000 3RD TRIMESTER Performed By: #### U LG, CRP #### [facility] [address] [place] [address] Dr. Soo Donnelly Covid-19 PCR (CVDTBH)on 05-01 SARS-CoV-2 (COVID-19) RNA NOLA+probe Ql (Unsp spec) Not detected Normal NOT DETECTED [facility] Comment on above: Result Comment: This test is not yet approved or cleared by the [place] FDA. When there are no FDA-approved or cleared tests available, and other criteria are met, FDA can make tests available under an emergency access mechanism called an Emergency Use Authorization (EUA). The EUA for this test is supported by the [employer] [place] of Health and Human Service's (HHS's) declaration [...] SARS-CoV-2. Performed By: #### C VDTBH #### [facility] [address] [address] [address] Soo Donnelly TYPE AND SCREENon 05-13-2022 TYPE AND SCREEN Negative Normal [facility] Comment on above: Performed By: #### B KYMBERLY MARSHALL #### [facility] [address] [address] [address] Soo Donnelly PAP ACOG PANEL 2: 30 to 65on 05-07-2022 . . Normal [facility] Comment on above: Result Comment: Perf ormed at: WB Performed By: #### [id number] #### [facility] [address] [address] [address] Soo Donnelly Age Gdln ACOG Testing 30-65 [facility] Comment on above: Performed By: #### [id number] #### [facility] [address] [place] [address] Dr. Soo Donnelly DIAGNOSIS: Comment Normal [facility] Comment on above: Result Comment: NEGA TIVE FOR INTRAEPITHELIAL LESION OR MALIGNANCY. Performed at: WB Performed By: #### [id number] #### [facility] [address] [place] [address] Dr. Soo Donnelly HPV Aptima Negative Normal Negative [facility] Comment on above: Result Comment: This nucleic acid amplification test detects fourteen high-risk HPV types (16,18,31,33,35,39,45,51,52,56,58,59,66,68) without differentiation. Performed at: =G Performed By: #### [id number] #### [facility] [address] [address] [address] Soo Donnelly Methodology: Comment Normal [facility] Comment on above: Result Comment: This liquid based ThinPrep(R) pap test was screened with the use of an image guided system. Performed at: WB Performed By: #### [id number] #### [facility] [address] [place] [address] Dr. Soo Donnelly Note: Comment Normal [facility] Comment on above: Result Comment: The Pap smear is a screening test designed to aid in the detection of premalignant and malignant conditions of the uterine cervix. It is not a diagnostic procedure and should not be used as the sole means of detecting cervical cancer. Both false-positive and false-negative reports do occur. . Performed at: WB Performed By: #### [id number] #### [facility] [address] [place] [address] Dr. Soo Donnelly Performed by: Comment Normal [facility] Comment on above: Result Comment: Angel Rod, Pharmacy Grad Intern (ASCP) Performed at: WB Performed By: #### [id number] #### [facility] [address] [place] [address] Dr. Soo Donnelly Specimen adequacy: Comment Normal [facility] Comment on above: Result Comment: Sati sfactory for evaluation. Endocervical and/or squamous metaplastic cells (endocervical component) are present. Performed at: WB Performed By: #### [id number] #### [facility] [address] [place] [address] Dr. Soo Donnelly ROSS by IFAon 02-21-2022 Antinuclear Antibodies, IFA Negative [facility] Comment on above: Result Comment: Nega tive <1:80 Borderline 1:80 Positive >1:80 ICAP nomenclature: [id number] For more information about Hep-2 cell patterns use ANApatterns.org, the official website for the International Consensus on Antinuclear Antibody (ROSS) Patterns (ICAP). Performed By: #### U LG, CRP #### [facility] [address] [place] [address] Dr. Soo Donnelly ROSS DIRECTon 02-20-2022 ROSS Direct Negative Normal Negative [facility] Comment on above: Performed By: #### A NAD #### [facility] [address] [place] [address] Dr. Soo Donnelly ANTISTREPTOLYSIN O AB (ASO)o n 02-20-2022 Antistreptolysin O Ab 115.3 IU/mL Normal 0.0-200.0 [facility] Comment on above: Performed By: #### B UN, CREA #### [facility] [address] [place] [address] Dr. Soo Donnelly C3 and C4 COMPLEMENTon 02-20 Complement C3, Serum 137 mg/dL Normal 82-167 [facility] Comment on above: Performed By: #### U LG, CRP #### [facility] [address] [place] [address] Dr. Soo Donnelly Complement C4, Serum 23 mg/dL Normal 12-38 [facility] Comment on above: Performed By: #### U LG, CRP #### [facility] [address] [address] [address] Soo Donnelly SLE PROFILE Aon 02-20-2022 Anti-DNA (DS) Ab Qn <1 Normal 0-9 [facility] Comment on above: Result Comment: Nega tive <5 Equivocal 5 - 9 Positive >9 Performed By: #### S YARI #### [facility] [address] [place] [address] Dr. Soo Donnelly Antichromatin Antibodies <0.2 Normal 0.0-0.9 [facility] Comment on above: Performed By: #### S YARI #### [facility] [address] [place] [address] Dr. Soo Donnelly RA Latex Turbid. <10.0 Normal <14.0 [facility] Comment on above: Performed By: #### S YARI #### [facility] [address] [place] [address] Dr. Soo Donnelly PROGRAMMING DIRECTOR Antibodies <0.2 Normal 0.0-0.9 [facility] Comment on above: Performed By: #### S YARI #### [facility] [address] [place] [address] Dr. Soo Donnelly Sjogren's Anti-SS-A <0.2 Normal 0.0-0.9 [facility] Comment on above: Performed By: #### S YARI #### [facility] [address] [place] [address] Dr. Soo Donnelly Sjogrdaniela's Anti-SS-B <0.2 Normal 0.0-0.9 [facility] Comment on above: Performed By: #### S YARI #### [facility] [address] [address] [address] Soo Donnelly Spann Antibodies <0.2 Normal 0.0-0.9 [facility] Comment on above: Performed By: #### S YARI #### [facility] [address] [address] [address] Soo Donnelly CRPon 02-19-2022 CRP [Mass/Vol] mg/L Normal <=1.0 [facility] Comment on above: Performed By: #### U LG, CRP #### [facility] [address] [address] [address] Soo Donnelly URIC ACID SERUMon 02-19-2022 Urate [Mass/Vol] 4.7 mg/dL Normal 2.5-6.2 [facility] Comment on above: Performed By: #### U LG, CRP #### [facility] [address] [place] [address] Dr. Soo Donnelly XR CSPINE MIN 4 [...] ABIGAIL SHEEHAN Date: 2022-02-19 16:33 Normal [facility] XR HAND DEAN MIN 3Von 022 [...] ABIGAIL SHEEHAN Date: 2022-02-19 16:28 Normal [facility] ASYMPTOMATIC COVID-19 ANTIGE Non 12-04-2021 EUA Statement SEE BELOW Normal [facility] Comment on above: Result Comment: This [...] sooner. Performed By: #### C VDAGA #### [facility] [address] [place] [address] Dr. Soo Donnelly SARS-CoV-2 (COVID-19) RNA NOLA+probe Ql (Unsp spec) Negative Normal NEGATIVE [facility] Comment on above: Result Comment: Nega tive results are presumptive. They do not preclude infection and should not be used as the sole basis for treatment decisions. Additional confirmatory testing by a molecular method should be considered. Performed By: #### C VDAGA #### [facility] [address] [place] [address] Dr. Soo Donnelly Covid-19 PCR (CVDTB)on SARS-CoV-2 (COVID-19) RNA NOLA+probe Ql (Unsp spec) Not detected Normal NOT DETECTED [facility] Comment on above: Result Comment: This test is not yet approved or cleared by the [place] FDA. When there are no FDA-approved or cleared tests available, and other criteria are met, FDA can make tests available under an emergency access mechanism called an Emergency Use Authorization (EUA). The EUA for this test is supported by the [place] of Health and Human Service's (HHS's) declaration [...] Performed By: #### U LG, CRP #### [facility] [address] [place] [address] Dr. Soo Donnelly Vital Signs Date Time Vital Sign Value Performing Clinician Facility 11-01-2022 15:19-0500 Blood Pressure Location [facility] 11-01-2022 15:19-0500 Diastolic blood pressure 80 mm[Hg] [facility] 11-01-2022 15:19-0500 Heart rate 72 /min [facility] 11-01-2022 15:19-0500 Respiratory rate 16 /min [facility] 11-01-2022 15:19-0500 Systolic blood pressure 118 mm[Hg] [facility] [facility] 10-01-2022 16:30-0400 Body height 170.18 cm Clarice Hull Other [facility] Other 10-01-2022 16:30-0400 Body mass index (BMI) [Ratio] 32.84 kg/m2 Clarice Carlsonmegan Other [facility] Other 10-01-2022 16:30-0400 Body weight 95.12 kg Clarice Scally Other [facility] Other 10-01-2022 16:30-0400 Diastolic blood pressure 82 mm[Hg] Clarice Scally Other [facility] Other 10-01-2022 16:30-0400 Respiratory rate 18 /min Clarice Scally Other [facility] Other 10-01-2022 16:30-0400 SaO2% (BldA) [Mass fraction] 97 % Clarice Scally Other [facility] Other 10-01-2022 16:30-0400 Systolic blood pressure 116 mm[Hg] Clarice Scally Other [facility] Other 08-28-2022 14:30-0400 Body height 170.18 cm Nahid Elisediff Other [facility] Other 08-28-2022 14:30-0400 Body mass index (BMI) [Ratio] 34.55 kg/m2 Nahid Elisediff Other [facility] Other 08-28-2022 14:30-0400 Body weight 100.06 kg Nahid Darius Other [facility] Other 08-28-2022 14:30-0400 Diastolic blood pressure 82 mm[Hg] Nahid Mccoy Other [facility] Other 08-28-2022 14:30-0400 Respiratory rate 18 /min Nahid Darius Other [facility] Other 08-28-2022 14:30-0400 SaO2% (BldA) [Mass fraction] 97 % Nahidtrell Elisediff Other [facility] Other 08-28-2022 14:30-0400 Systolic blood pressure 121 mm[Hg] Nahidtrell Elisediff Other [facility] Other Encounters Encounter Date Encounter Type Care Provider Facility Start: 08-30-2024 End: 08-30-2024 Departed Referred [facility] [facility] [facility] [address] Work Phone: Start: 08-30-2024 End: 08-30-2024 ambulatory NON STAFF [facility] Work Phone: Start: 04-05-2024 End: 04-05-2024 ambulatory AURA ROSCOE Not Available Start: 03-15-2024 End: 03-15-2024 Emergency department patient visit Nicola Neff Facility:[facility] Start: 10-22-2023 End: 10-22-2023 ambulatory JESSICA SANCHEZ Not Available Start: 08-15-2023 End: 08-15-2023 ambulatory NON STAFF [facility] Work Phone: Start: 08-15-2023 End: 08-15-2023 Departed Referred [facility] [address] Work Phone: Start: 12-05-[address] SAMI MARINELLI Facility :[facility] Start: 11-09-2022 End: 11-10-[address] DOCTOR STEIN Facility:[facility] Start: 11-01-2022 End: 11-02-2022 ambulatory Nicola BUCHANAN [facility] Start: 11-01-2022 End: 11-01-2022 Patient encounter procedure Nicola BUCHANAN General Surgery [facility] Start: 10-29-2022 End: 10-29-2022 ambulatory Clarice Hull Other [facility] Other Start: 10-29-2022 Telephone encounter [facility]ice [facility] Start: 10-14-2022 End: 10-14-2022 ambulatory Clarice Hull Other [facility] Other Start: 10-14-2022 Telephone encounter Clarice [facility] Start: 10-04-2022 ambulatory Nicola CHANEL Facility: [facility] Start: 10-01-2022 ([id number]) Weight Management f/u Clarice Hull [facility] Start: 10-01-2022 End: 10-02-[address] LUZ ELENA SAUCEDA [facility] [employer] Other Start: 09-19-2022 End: 09-19-2022 ambulatory Nahid Mccoy Other [facility] Other Start: 09-19-2022 Telephone encounter Nahid [facility] Start: 09-18-2022 End: 09-18-[address] LUZ ELENA SAUCEDA Facility:[facility] Start: 09-12-2022 End: 09-13-[address] ABIGAIL SHEEHAN Facility:[facility] Start: 08-28-2022 End: 08-28-2022 ambulatory Nahid Mccoy Other [facility] Other Start: 08-28-2022 Nutrition therapy Nahid Mcc[facility] Start: 07-22-2022 Encounter for genera l adult medical examination without abnormal findings DR SAMI MARINELLI [facility] Start: 07-19-2022 End: 07-20-[address] [...] for preprocedural laboratory examination DR AURA MURILLO [facility] Start: 05-13-2022 End: 05-14-[address] AURA MURILLO Facility:[facility] Start: 05-13-2022 End: 05-14-2022 Encounter for preprocedural laboratory examination DR AURA MURILLO Facility:[facility] Start: 05-11-2022 Encounter for preprocedural cardiovascular examination DR AURA MURILLO [facility] Start: 05-08-2022 End: 05-09-[address] [...] abdomen Nicola BUCHANAN Abdominoplasty and liposuction Nicola BUCHANAN Arthroscopy of knee Nicola BUCHANAN Comment on above: LEFT Breast biopsy and re lated procedures Nicola BUCHANAN Comment on above: LEFT section Nicola Mei Diagnostic endoscopi c examination of ovary Nicola BUCHANAN Comment on above: OVARIAN CYSTS X3 Endometrial ablation Nicola BUCHANAN Extraction of wisdom tooth Jered BUCHANAN Laparoscopic cholecystectomy Nicola BUCHANAN Laparoscopic excisio n of cyst of left ovary Nicola BUCHANAN Laparoscopic excisio n of cyst of right ovary Nicola BUCHANAN Ligation of fallopian tube Jered BUCHANAN Comment on above: DONE WITH C SECTION LIPOMA EXCISION 4 Nicola KEBEDE Comment on above: ABDOMEN X3 REPAIR FOR TMJ Nicola BUCHANAN Immunizations Immunization Date Immunization Notes Care Provider Fa brice NEGATED: Highlighted row has not occurred!11-01-2022 influenza virus vaccine, unspecified formulation Nicola BUCHANAN [facility] Payers Date Payer Category Payer Self-pay [id number] 1975 Unknown [id number] 2.16.8 [id number] 1975 Unknown [id number] 2.16.84 0.1.938019.3.579.2.593 1975 Unknown [id number] 2.16.84 0.1.557088.3.579.2.593 1975 Unknown [id number] 2.16.84 0.1.909874.3.579.2.59 1975 Unknown [id number] 2.16.84 0.1.278573.3.579.2.593 1975 Unknown [id number] 2.16.84 0.1.749421.3.579.2.593 1975 Unknown [id number] 2.16.84 0.1.436893.3.579.2.593 1975 Unknown [id number] 2.16.84 0.1.933910.3.579.2.593 1975 Unknown [id number] 2.16.84 0.1.013989.3.579.2.593 1975 Unknown [id number] 2.16.84 0.1.310812.3.579.2.593 1975 Unknown [id number] 2.16.84 0.1.925756.3.579.2.593 1975 Unknown [id number] 2.16.84 0.1.570360.3.579.2.593 1975 Unknown [id number] 2.16.84 0.1.253057.3.579.2.593 1976 Unknown [id number] 2.16.84 0.1.446781.3.579.2.593 1976 Unknown [id number] 2.16.84 0.1.213019.3.579.2.593 1975 Unknown [id number] 2.16.8 40.1.825437.3.579.2.718 1975 Unknown [id number] 2.16.84 0.1.188570.3.579.2.1259 1975 Unknown [id number] 2.16.840 .1.100189.3.579.2.1259 1958 Self-pay [id number] 1958 Unknown [id number] 2. 16.840.1.905069.19 Unknown [id number] 2.16.8 40.1.046380.3.579.2.531 Social History Date Type Detail Facility Unknown if ever smoked [facility] Other Sex Assigned At [facility] Start: 11-01-2022 Tobacco smoking status Ex-smoker (finding) [facility] Tobacco smoking status Former smokeless tobacco user, quit more than 30 days ago [facility] Start: 1975 Sex Assigned At Female F [facility] Functional Status Date Assessment Result [...] Keep all follow-up visits. Medicines ? Take zvuu-cyw-[id number] and prescription medicines only as told by [...] work harder to (more content not included)... [facility] 11-25-2022 Note Chief Complaint consultation [...] - Denies A (more content not included)... [facility] Comment on above: Result Comment: Elec tronically Signed By: CHANEL BURK, Nicola Lyle.liam\Date and Time Signed: 11/25/22 10:08 EST 10-01-2022 [...] was counseling done by myself, Ann ANGLIN. [facility] Other 09-28-2022 Evaluation note* Encounter Date Diagnosis Assessment Notes Treatment Notes Treatment Clinical Notes Aug, Abnormal weight gain (ICD-10 - R63.5) Aug, Prediabetes (ICD-10 - R73.03) Aug, Mixed hyperlipidemia (ICD-10 - E78.2) Aug, Hypertension (ICD-10 - I10) Aug, Obstructive sleep apnea (ICD-10 - G47.33) Aug, GERD (gastroesophageal reflux disease) (ICD-10 - K21.9) Aug, Metabolic syndrome X (ICD-10 - E88.81) [facility] Other 06-16-2022 NoteDISCHARGE SUMMARY DISCHARGE DATE: 05/18/2022 [...] free and no longer on narcotics. [facility] Signed and Approved by: DR AURA MURILLO . 05/20/2022 07:51:00[id number] NoteThe [place], [place] NAME: PAIGE PUGH DATE OF : MEDICAL REC#: [id number] MATRIX SUPERVISOR: 160Beulah LEE MEDICAL ADMIT DATE: 05/16/2022 11:05:00 GROCERY CADDY DATE: 05/17/2022 21:20 DICTATING PHYSICIAN: AURA MURILLO DICTATION DATE: 05/16/2022 15:02 OP Note OPERATION DATE: 05/16/2022 PROCEDURE: Supracervical hysterectomy with left salpingo-oophorectomy with right salpingectomy and right ovarian cystotomy of approximately 3 cm cyst. SURGEON: Aura Murillo D.O. [employer] ATTORNEY: SHUKRI Bailon URINE OUTPUT: Yellow and clear. [...] Murillo DO on 05/23/2022 10:30 AM EDT [facility] Signed and Approved by: DR AURA MURILLO . 05/23/2022 [facility]00[facility] No data available for this section [facility] Evaluation noteNo InformationNort [employer] Other Evaluation noteNo assessment information available [facility] Work Phone: History general Narrative - Reported* Type Description Date [...] Surgical History hysterectomy Surgical History Tummy Tuck 2008 Surgical History lipoma removed 2004 Surgical History TMJ surgery Hospitalization History see above [facility] Other History general Narrative - Reported* Type Description Date [...] Surgical History hysterectomy Surgical History Tummy Tuck 2008 Surgical History lipoma removed 2004 Surgical History TMJ surgery Hospitalization History see above Hospitalization History [facility]22 [facility] Other Hospital Discharge instructions No data available for this section General [facility] Progress note No data available for this section [facility] Summary Purpose Family History No Family History Records Found Relationship Condition Age at Onset Recorded Date/T lewis aunt Obesity Unknown father Diabetes mellitus Unknown Unknown Obesity Unknown grandparent Obesity Unknown mother Diabetes mellitus Unknown Family history of lung cancer Unknown Malignant neoplasm Unknown Advance Directives No Advanced Directives Records FoundNo Advanced Directives Records FoundNo Advanced Directives Records FoundNo Advanced Directives Records FoundNo Advanced Directives Records Found Chief Complaint and Reason for Visit Chief Complaint WELLNESS Chief Complaint [facility] Additional Source Comments REASON FOR VISIT (unrecogniz ed section and content) initial WMNDC Ozempic denied 09/19/2022WMN [employer] f/u, pt. request, SEE TE Oral meds, x injectible, initial WMNDS waiting for lab order to be sentDS please callDS Cancelled DM appt Patient Care team informatio n (unrecognized section and content) Team Status: Active Member Role Status Dates NON STAFF Primary Care Provider Active Team Status: Inactive Member Role Status Dates NON STAFF Primary Care Provider Active Dedrick Fuller DO [facility] Attending Provider Active Team Status: Inactive Member Role Status Dates NON STAFF Primary Care Provider Active Start: August 30, 2024 End: August 30, 2024 Dedrick Fuller - [facility] DO [facility] Attending Provider Active Start: August 30, 2024 End: August 30, 2024 INFORMATION SOURCE (unrecogn ized section and content) DATE CREATED AUTHOR 11/26/2022 [place] [facility] DATE CREATED AUTHOR AUTHOR'S ORGANIZ ATION 12/03/2022 [facility] DATE CREATED AUTHOR AUTHOR'S ORGANIZ ATION 03/21/[address] [facility] DATE CREATED AUTHOR AUTHOR'S ORGANIZ ATION 04/06/2024 [facility] EPIC DATE CREATED AUTHOR AUTHOR'S ORGANIZ ATION 08/31/2024 [facility] Goals (unrecognized section and content) Goals may [...] BE BASED ON THE PRIMARY CLINICAL RECORDS. [employer] [facility]. provides no warranty or guarantee of the accuracy or completeness of information in this document.
--- NOTE | 2024-09-02 11:11 | P.CN_ITS ---
Consult Note: HPI Data of Consult Patient: new to practice Requesting Physician: China Streeter NP Primary Care Provider: Varun Marinelli MD Consult Narrative Reason for consult: establish Narrative: Paige Marroquin a pleasant 49 year old female presents for evaluation of cervical and lumbar pain. longstanding hx of neck and low back pain with right buttock hip and leg pain. Recently evaluated by Dr Mariee who updated cervical and lumbar xray as well as lumbar MRI which shows multilevel stenosis and DDD, no surgical interventions recommended at this time. Patient rates pain 7/10 sharp dull ache increasing with driving, sitting, standing, walking, housework, activity. improved with ice, lying, sleep. Patient has never attended PT, upcoming PT for neck and low back pain. PCP has trialed pt on numerous steroids without benefit including oral and injections. Pt has failed aleve, ibuprofen, meloxicam, and indomethacin and tylenol. Has failed to benefit from tizanidine, does not recall any other muscle relaxers. denies loss of bowel or bladder. cc:: CC: China Streeter NP Review of Systems ROS Status of ROS 10 or more systems reviewed and unremark able except as noted in history and below Musculoskeletal Reports: back pain, neck pain, extremity pain and joint pain Meds Home Medications and Allergies Home Medications ?Medication ?Instructions ?Recorded ?Confirmed ?Type alprazolam 0.25 mg tablet 0.25 mg PO TID 03/27/24 03/27/24 History dicyclomine 20 mg tablet 20 mg PO TID PRN abdominal pain #7 03/27/24 Rx tabs doxepin 10 mg capsule 10 mg PO DAILY 03/27/24 03/27/24 History fluconazole 150 mg tablet mg 03/27/24 History meloxicam 15 mg tablet mg 03/27/24 History methylphenidate HCl 20 mg tablet 30 mg PO BID 03/27/24 03/27/24 History metoprolol tartrate 50 mg tablet 50 mg PO Q12H 03/27/24 03/27/24 History omeprazole 40 mg capsule,delayed 40 mg PO BID 03/27/24 03/27/24 History release ondansetron 4 mg disintegrating 4 mg PO Q4H PRN nausea and 03/27/24 Rx tablet vomiting 3 days #6 tabs oxaprozin 600 mg tablet 600 mg PO DAILY 03/27/24 03/27/24 History tizanidine 4 mg capsule (Zanaflex) 4 mg PO .hs PRN muscle spasticity 03/27/24 03/27/24 History Allergies Allergy/AdvReac Type Severity Reaction Status Date / Time nitrofurantoin Allergy Mild Anaphylaxis Verified 03/27/24 12:37 [From Macrobid] pecan Allergy Intermediate Uncoded 03/27/24 12:37 Exam Constitutional Documenting provider has reviewed patient's vital signs: yes Common normals: no apparent distress, oriented x3, healthy appearing, alert and well nourished General appearance: cooperative HENMT Common normals: normocephalic, hearing grossly normal bilaterally and moist oral mucous membranes Head and scalp: normocephalic Eye Common normals: PERRL Pupil: PERRL Neck & C-Spine Common normals: full ROM General: normal visual inspection Cervical spine: pain with cervical ROM and cervical spine tenderness Chest Common normals: inspection of chest normal Respiratory Common normals: normal respiratory effort, no retractions and no use of accessory muscles Back & Pelvis Lumbar spine/lower back: ROM limited, pain with ROM and straight leg raise positive right Sacroiliac joints: SI joint(s) abnormal Other: right sij positive javier(patricks), gaenslens, thigh thrust, compression test strength 5/5 in BLE decreased sensation to right L3,4,5 pattern Neuro Common normals: oriented x3, CN's II-XII intact bilaterally, moves all extremities, no focal motor deficits, no sensory deficits noted and deep tendon reflexes 2+ bilaterally Sensorium/orientation: alert Motor exam: strength 5/5 throughout and no movement abnormalities noted Psych Common normals: mental status grossly normal, thought process normal, cooperative, affect normal, speech normal and activity/motor behavior normal Speech: normal speech Thought process: normal thought process Results Imaging Lumbar MRI: Attestation: I have reviewed the pertinent imaging results. Lumbar Xray: Attestation: I have reviewed the pertinent imaging results. Radiologist's impression: BONES: Mild left convex curvature of lumbar spine. No fracture, spondylolisthesis, or change in alignment during flexion and extension. Mild degenerative facet arthropathy L4-5, L5-S1. DISC SPACES: Slight narrowing L5-S1. PARASPINOUS: Negative. No paraspinous abnormality is seen. OTHER: Negative. cervical xray: Attestation: I have reviewed the pertinent imaging results. Radiologist's impression: BONES: Slight reversal of normal lordotic curvature involving C4-C5-6. Minimal grade 1 anterior listhesis of C4 on 5; no change in alignment during flexion and extension. Multilevel mild degenerative facet arthropathy. DISC SPACES: Slight narrowing C5-C6. PARASPINOUS: Negative. No paraspinous abnormality is seen. OTHER: Negative. Additional Findings Additional findings: If on a controlled substance or opioids, I have checked an [place] report on this patient and there are no aberrancies noted in the prescribing history.??If on a controlled substance or opioid a drug screen was completed and reviewed within the last year, and if there has not been a drug screen completed we ordered one today to monitor higher risk, state monitored pain medication use. As part of providing excellent, safe, comprehensive care, the following was completed at our patient's visit: 1. A medication reconciliation and review to ensure accurate knowledge of current/active medications, including asking our patients to inform us about any ydnh-hoc-vagpmqn medications or herbal remedies/nutritional supplements/alternative remedies. 2. A review to specifically ensure our patients have had annual screening for sc reening for depression, screening for tobacco use, and screening for unhealthy alcohol use. For concerning screenings had a discussion with the patient, provided patient education, and recommended follow-up with primary care provider when appropriate. If patient noted with a risk of falling, they received education on strength, gait, and balance training to prevent future risk of falling. Assessment and Plan Assessment and Plan (1) Lumbar stenosis with neurogenic claudication: (2) Sacroiliitis: (3) Lumbar spondylosis: (4) Cervical spondylosis: (5) Degenerative disc disease, cervical: (6) Lumbar degenerative disc disease: Plan stop tizanidine, start baclofen 5-10mg HS PRN pain/spasms. risks vs benefits reviewed stop indomethacin, start celebrex 100mg BID PRN pain. risks vs benefits reviewed start PT can consider right SIJ and right L3-4 L4-5 TFESI if symptoms persist f/u after completion of PT, sooner if needed
== END 2024-09-02 10:35 | disposition home or self-care (01) ==
LOC: PM 10:34
PROVIDERS: PCP Family Medicine; Visit Provider Nurse Practitioner
DX: M48.062 Spinal stenosis, lumbar region with neurogenic claudication (principal); M46.1 Sacroiliitis, not elsewhere classified; M47.816 Spondylosis without myelopathy or radiculopathy, lumbar region; M47.812 Spondylosis without myelopathy or radiculopathy, cervical region; M50.30 Other cervical disc degeneration, unspecified cervical region; M51.369 Other intervertebral disc degeneration, lumbar region without mention of lumbar back pain or lower extremity pain
CPT/HCPCS: G0463

== ENCOUNTER 2024-09-13 16:30 | Outpatient (OUT) | payer OTHER, SELFPAY ==
--- NOTE | 2024-09-13 16:35 | US_ITS ---
The [address] [address] Patient Name: HORACIO KEATING MRN: [id number] date: 1975 Sex: F Assigned Patient Location: [place] Current Patient Location: [place] Accession/Order Number: [id number] Exam Date: 09/13/2024 16:40 Report Date: 09/14/2024 14:08 At the request of: SAMI MCCARTY Procedure: US pelvis w/ transvaginal EXAMINATION: US pelvis w/ transvaginal HISTORY: HEMATURIA R31.9 COMPARISON: 04/07/2024 FINDINGS: Transabdominal and transvaginal images The uterus is surgically absent. Areas of anechoic echogenicity in the cervix likely nabothian cysts The right ovary measures 2.7 x 1.8 x 2.4 cm. Normal color Doppler flow. Area of hypoechogenicity measuring 1.3 cm, complex versus functional cyst. The left ovary is surgically absent US/US pelvis w/ transvaginal IMPRESSION: 1.3 cm right ovarian cyst Electronically authenticated by: ABIGAIL SHEEHAN Date: 09/14/2024 14:08
--- NOTE | 2024-09-13 16:36 | US_ITS ---
The [address] [address] Patient Name: HORACIO KEATING MRN: [id number] date: 1975 Sex: F Assigned Patient Location: [place] Current Patient Location: Accession/Order Number: [id number] Exam Date: 09/13/2024 16:40 Report Date: 09/14/2024 07:45 At the request of: SAMI MCCARTY Procedure: US renal bladder EXAMINATION: US renal bladder HISTORY: HEMATURIA R31.9 COMPARISON: No relevant comparison available. TECHNIQUE: Ultrasound examination was performed of the bladder. FINDINGS: Right Kidney: Normal in size, contour and echotexture. The cortex measures 1.4 cm. 1.7 x 1.8 x 2 cm area of anechoic echogenicity in the upper pole, simple cyst. No solid cortical mass, hydronephrosis or obstructing nephrolithiasis Height: 4.04 cm Length: 12.57 cm Width: 4.83 cm Left Kidney: Normal in size, contour and echotexture. The cortex measures 1.4 cm. No solid cortical mass, hydronephrosis or obstructing nephrolithiasis Height: 4.68 cm Length: 11.97 cm Width: 5.02 cm Urinary bladder is normal in appearance. The wall measures 2.3 mm. Prevoid volume 231 mL. Post void volume 7 mL Ureteral jets: Visualized bilaterally US/US renal bladder IMPRESSION: 2 cm right renal simple cyst Electronically authenticated by: ABIGAIL SHEEHAN Date: 09/14/2024 07:45
--- OUTSIDE RECORDS SUMMARY | 2024-09-13 16:37 | XMS_ITS | CCD ---
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 Name Role Phone Nahid Mccoy Unavailable AldoClarice guzman Unavailable Sami Marinelli Primary Care Physician Nicola [...] Attending Unavailable LUL, DR GALLARDO Admitting Unavailable HOY, DR GALLARDO [...] Admitting Unavailab SAMI Matos Primary Care Unavailable NON STAFF Primary Care Provider Unavailsalome [facility] Attending Provider [facility] Unavailable Juan [place], Dedrick Majano Admitting Unavailable NON STAFF Primary Care Unavailable JESSICA SANCHEZ Attending Unavailable AURA MURILLO Attending Unavailable CAROL WEBB Attending Unavailable FLORIN DANIELLE Referring Unavailable Allergies Allergy Classification Reported Allergen(s) Allergy Type Date of Onset Reaction(s) Facility (7 sources) NITROFURANTOIN, MACROCRYSTALS / Nitrofurantoin, Monohydrate; 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: [nitrofurantoin] Drug Allergy Neck swelling (finding) [facility] (1 source) Albuterol Drug Allergy [facility] Comment on above: NEED TO CUT DOWN ADR ENALIN TO PREVENT SEIZURES (2 sources) Bee/Wasp/Ant venom; 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: [Bee Stings] Allergy to substance Nausea, Swelling [facility] (1 source) PECANS 1 Food allergy [facility] Comment on above: AIRWAY CONSTRICTION (2 sources) Albuterol; 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: [albuterol] Drug Allergy [facility] (1 source) Egg; 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: [Eggs] Food allergy (disorder) [facility] (4 sources) Nitrofurantoin; 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: [Macrobid] Drug Allergy 2 [facility] (1 source) PECANS; 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: [PECANS] Food allergy (disorder) [facility] (2 sources) bee venom Drug allergy (disorder) 5 [facility] (2 sources) egg extract Drug Allergy 5 [facility] (2 sources) pecan pollen extract Drug Allergy [facility] (2 sources) tree nut, unspecified Drug allergy (disorder) 5 [facility] (1 source) Nitrofurantoin Drug Allergy 2 [facility] Medications Current Medications Medication Drug [...] 10/30/22 Status: Ordered take 1 capsule by [facility] every twenty-four hours Omeprazole 40 MG [...] 2 Chronic Other aftercare (1 source) Other fpc (current) drug therapy; 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: [OTH INTERMEDIATE CURRENT DRUG THERAPY] Onset: 2 Episodic Other [...] MDRD (S/P/Bld) [Vol rate/Area] mL/min/{1.73_m2} Normal [facility] Comment on above: Performed By: #### L IPID, BMP #### [facility] [address] [place] [address] [place] Calcium [Mass/volume] in Ser um or PlasmaOrdered By: Dedrick Fuller on 08-30-2024 Calcium [Mass/Vol] 9.9 mg/dL Normal 8.6-10.3 [facility] Comment on above: Performed By: #### L IPID, BMP #### [facility] [address] [place] [address] [place] Carbon dioxide, total [Moles /volume] in Serum or PlasmaOrdered By: Dedrick Fuller on 08-30-2024 CO2 [Moles/Vol] 26.6 mmol/L Normal 21.0-31.0 [facility] Comment on above: Performed By: #### L IPID, BMP #### [facility] [address] [place] [address] [place] Chloride [Moles/volume] in S altagracia or PlasmaOrdered By: Dedrick Fuller on 08-30-2024 Chloride [Moles/Vol] 104 mmol/L Normal 98-107 [facility] Comment on above: Performed By: #### L IPID, BMP #### [place] [address] [place] Cholesterol [Mass/volume] in Serum or PlasmaOrdered By: Dedrick Fuller on 08-30-2024 Cholesterol [Mass/Vol] 218 mg/dL High 140-200 [facility] Comment on above: Chol less than 200 m g/dl low riskChol 201-239 mg/dl borderline riskChol 240 mg/dl and greater high risk Result Comment: Chol less than 200 mg/dl low risk Chol 201-239 mg/dl borderline risk Chol 240 mg/dl and greater high risk Performed By: #### L IPID, BMP #### [facility] [address] Cholesterol in LDL Calc [Mas s/Vol]Ordered By: Dedrick Fuller on 08-30-2024 Cholesterol in LDL [Mass/Vol] 134 mg/dL High 0-100 [facility] Comment on above: LDL ATP III CLASSIFI CATIONLDL less than 100 mg/dL OptimalLDL 100-129 mg/dL Near or above optimalLDL 130-159 mg/dL Borderline highLDL 160-189 mg/dL HighLDL greater than 189 mg/dL Very high Cholesterol in VLDL Calc [Ma ss/Vol]Ordered By: Dedrick Fuller on 08-30-2024 Cholesterol in VLDL [Mass/Vol] 46 mg/dL [facility] Creatinine [Mass/volume] in Serum or PlasmaOrdered By: Dedrick Fuller on 08-30-2024 Creatinine [Mass/Vol] 0.75 mg/dL Normal 0.60-1.[address] [facility] Comment on above: Performed By: #### L IPID, BMP #### [address] Glucose [Mass/volume] in Ser um or PlasmaOrdered By: Dedrick Fuller on 08-30-2024 Glucose [Mass/Vol] 95 mg/dL Normal 70-100 [facility] Comment on above: ADA recommended refe rence rangeRandom Glucose Reference Range is dependent on time and content of last meal. Glucose of more than 200 mg/dL in a nonstressed, ambulatory subject supports the diagnosis of Diabetes Mellitus. Result Comment: [place] om Glucose Reference Range is dependent on time and content of last meal. Glucose of more than 200 mg/dL in a nonstressed, ambulatory subject supports the diagnosis of Diabetes Mellitus. ADA recommended reference range Performed By: #### L IPID, BMP #### [facility] [address] Lipid Panelon 08-30-2024 LDL Cholesterol,Calculated 134 mg/dL High 0-100 [facility] Comment on above: Result Comment: LDL ATP III CLASSIFICATION LDL less than 100 mg/dL Optimal LDL 100-129 mg/dL Near or above optimal LDL 130-159 mg/dL Borderline high LDL 160-189 mg/dL High LDL greater than 189 mg/dL Very high Performed By: #### L IPID, BMP #### [address] Triglyceride w/Reflex 231 mg/dL High 0-149 [facility] Comment on above: Result Comment: TRIG ATP III CLASSIFICATION TRIG less than 150 mg/dL Normal TRIG 150-199 mg/dL Borderline high TRIG 200-500 mg/dL High TRIG greater than 500 mg/dL Very high Standard traceable to the Center for Disease Conrtrol and Prevention (CDC) test method. Performed By: #### L IPID, BMP #### [address] VLDL CHOLESTEROL 46 mg/dL Normal [facility] Comment on above: Performed By: #### L IPID, BMP #### [address] No Panel InformationOrdered By: Dedrick Fuller on 08-30-2024 Estimated GFR (CKD-EPI) > 60.0 mL/Min [facility] Creatinine Clearance (Chem N/A [facility] Potassium [Moles/volume] in Serum or PlasmaOrdered By: Dedrick Fuller on 08-30-2024 Potassium [Moles/Vol] 4.1 mmol/L Normal 3.5-5.[address] [facility] Comment on above: Performed By: #### L IPID, BMP #### [address] Serum or plasma anion gap de terminationOrdered By: Dedrick Fuller on 08-30-2024 Anion gap [Moles/Vol] 13.5 mmol/L Normal 6.0-15.0 [facility] Comment on above: Performed By: #### L IPID, BMP #### [facility] [address] Serum or plasma high density lipoprotein (HDL) cholesterol measurementOrdered By: Dedrick Fuller on 08-30-2024 Cholesterol in HDL [Mass/Vol] 38 mg/dL Normal 23-92 [facility] Comment on above: HDL CHOL ATP-III CLA SSIFICATION Cardiovascular RiskHDL > or equal to 60 mg/dL LOWHDL < 40 mg/dL HIGH Result Comment: HDL CHOL ATP-III CLASSIFICATION Cardiovascular Risk HDL > or equal to 60 mg/dL LOW HDL < 40 mg/dL HIGH Performed By: #### L IPID, BMP #### [facility] [address] [place] [address] Serum or plasma total choles terol/high density lipoprotein (HDL) cholesterol mass ratOrdered By: Dedrick Fuller on 08-30-2024 Cholesterol.total/Mirta sterol in HDL [Mass ratio] 5.7 {ratio} Normal <5.0 [facility] Comment on above: Result Comment: PERF ORMED BY: [place] [address] PATHOLOGIST HOUSE DECORATOR IRMA MARCELO M.D. Performed By: #### L IPID, BMP #### [facility] [address] [place] [address] Sodium [Moles/volume] in Ser um or PlasmaOrdered By: Dedrick Fuller on 08-30-2024 Sodium [Moles/Vol] 140 mmol/L Normal 136-145 [facility] Comment on above: Performed By: #### L IPID, BMP #### [facility] [address] [place] [address] Triglyceride [Mass/volume] i n Serum or PlasmaOrdered By: Dedrick Fuller on 08-30-2024 Triglyceride [Mass/Vol] 231 mg/dL High 0-149 [facility] Comment on above: TRIG ATP III CLASSIF ICATIONTRIG less than 150 mg/dL NormalTRIG 150-199 mg/dL Borderline highTRIG 200-500 mg/dL High TRIG greater than 500 mg/dL Very highStandard traceable to the Center for Disease Conrtrol and Prevention (CDC) test method. Urea nitrogen [Mass/volume] in Serum or PlasmaOrdered By: Dedrick Fuller on 08-30-2024 Urea nitrogen [Mass/Vol] 18 mg/dL Normal 06-24 [facility] Comment on above: Performed By: #### L IPID, BMP #### [facility] [address] [place] [id number] [facility] Coding Summaryon 03-19-2024 Coding Summary HTMLBase 64 AmxiroceOOy9eRg+PGhlY WQ+EG1XFICbM02fjFWqfQ 0kO6QNKMkHMdcfUCIHODg VKnHgvvVnTC0xzVSfSHOy IC8+HT8tTADgLfxvzWEuz 9S6dJK2E26ghc7iUZacbR B4LOEbCeIdjjuxt8acuEn 6IDcuNmluOyBt JJRayD11UFF0uH51Lu64a BPetBGup8ylkIf6VlAbWM QjIAB1cPcuMLhxy9AsNAM yR19jiSZis0E7 IDAjjQwvkLAwPuFeiBY1k O6oTAmctjwjk9fytcccPx h5pu34oVNmr4B9rAN8X4L gzwZ3DZBhnGDd ZxeirRNHyU4dinttk0mew gdoFuMvZZLkEMx7OTt4EZ WhcEybArMjZW34LAR4LTF nafWmA7SuBXYd sVfaOhQ0e1Y3Qb3DQ1VER hwgG7LPDSCLWOzpdEY+PC 53nx52D1SxEwzaQgk8POR jPNG3oZA0zW3g MXEmBBugo6T4xCG5J3Hap zNozq7pg6ddJGEyHAxrX2 2bqZGje6V2NYHbjDD3JTU gvRnvZkXsyP12 Oyc+WOIaaDtlu3OwGrmdm 3bok0birCm1RidnKMBbzt VumVsfFBU1f4PdHk3gITV twKF8uAM1lZ8w KjKcArZ5JXwhV652BfCss TLxQthiF89rS7OuvLT+PH AsGas0ZMRjaJwvRH1lQ9H hZGRpbmctbGVm gDdcEY8zBOLpfoxxLAJww G7aALCjT9d6WcPgWuG4FR blH7NxUJRhohvnUc81rW8 cMmIvIoI8CMrc B0ZtimB4AVMgyVUyPLmzQ IT2N42sn3E0FVHrTUSaLF X2aHM9eD0cuWwiabtoyWE mdDsgdmVydGlj BXytNYqiQ802QODotAfnH kNvZGluZyBEYXRlOiAgMD QvMTkvMjAyNDwvdGQ+PHR bPMX4cRnzQNSw aQCoFXiyKy9ulVvurXttC S9pOVUngytmZOUtxJ1iSN CuuNQgiQlfLV4zZLLdgfk po283KoHrRCQ2 NYVacCFrD2GjpX6lKvRxR XXeNNGtO8CctSSuFAnbF2 53WGbaTpM6UJTlanDoZ2X sLWFsaWduOiB0 q9C0Pc1Uq7XewmlcZ4Jtu WLvClWiWqkiPNm2U2JqPc wvdHI+AK25LBZsGB10KXg 8DPM8fHpxNEws GJLrY1KprU0lWiPfHGUhI GRkOyc+PHRhYmxlIHdpZH RoPScxMDAlJyBzdHlsZT0 lJj4hAMFvNYFj iSzzcVDtCnCcm5rxSUNqU TgnGW0pbFoqU9XktPH2LX Tsm6t8Vh56V02bG8ArjBB +JURgtZK5kCL8 hI5nIxAfVfN6XFgrD865G fFfaBJhKggim3cjb3kaeS a2XmY7HPShbwItqPdmKQD 5p6ZnLu51I15d IHdpZHRoPSIxNSUiIHZhb Cvlhi4jpL7bWb2+PGNvbC S1cCH8bR8zUbNsVgF4JMr iJ225AmUxvMKr Sjsix9zfr6opnMo9OcDxG GBgglVpeTmvCIG9j4RaNw 00J3ShkRrmq1QnRya4vs0 0zAWoi8A3gTK5 X2IiATOyvyhmiKKjaBljJ E8vGBIywwloOFKcwK1vIA QmF2s5EgPwRsX6QZvbL3H bfxO3NCZaeNAr NIRwbJHFdE7hzvnrt0mwe xusXnLnLZTzZRs6KVm2FH KlvFzeGnZxQQR5ZkK3MVG 6kRKbkI8muJei ryesqM6yIsy+DNL0uXDne BNJGQ4iPqklbAJ+PHRkIH Y6qBgkCCtuIDVghN3jKRY cT0v6DtSbKtD9 ICopU6NoxpT0XIEyjJInH WYbhGUHtJ1bxtzke1ucsq imAcDbVKDaSQn9SDd4ZCB saWduOiBsZWZ0 RzK4FTN1pGYpbF6mdYpnm pfmzO0lRaw+QmlydGggRG K4GVe5Q4ZqLkk3OAUneGb mZP3cnVLnCGma Du0ilBkqrPztPR0eNHUmc vkjz338FzIjb7ngNLVsyY GcFZvkFTL1P88fv5B8OCA vFUIbWFZ9uDJ2 pY3kxUinsfwqsEQjuQsra xTlmVsjMOroINxvK138WZ VwdGlmRqPcVMj9Z0NmQgj 6JDShqQhsBL6s xOAwGRivCa8smJxxfTtrE H0tEHDlytoir919XnKkk1 iyKPXjnDOdUXtrFNQ6Q45 yd5R7PACqQRLo HHF2kJH8pX2pfOxwbhgkd GVmdDsgdmVydGljYWwtYW czM396ZWBbrZptJiWjyZx 1X2IbWit3MJMs hTfnDU4biOIlFTbxIh7xv KjgzPhpQH9fOGHausbtd3 57DzPlv2fmUYPmtNDrGVu mHSQ5W27xu3A9 INOcNZJdVCU0bIX5oS9in GlnbjogbGVmdDsgdmVydG kqNHgtNSlgO577UHNsjHe nPlBhdGllbnQg CPxmSQg9K2FeSxphwAA+P Q45HLIvJN55qTNtsZEfr4 zofZh5SbIiMRGqLHJ7yKr aTZssy0LmSITp U34vhLYfn0T5TFTgcEzig YOxBmNgaDG0qV0jKWvrzb asp5acqinwRskwp5mtcc7 5bH27K93bHDii ZHRoPSIzMCUiIHZhbGlnb r8rdX3lEe5+KKVraSR4gI U9lO8tKDMwPdK5DYkrQ90 9InRvcCIvPjxj i2bjl8qllUw0QaU9WQPks cQqbTnvRAL6z8TyXa78P4 9sIHdpZHRoPSIyMCUiIHZ aoTzwbp5wrH9e Ii8+TBFwgVS8hFF5aK4mP dOdNmE8IVxuP356WtOqyM OoFpsfF76nL0NfoQS+PHR vPax9JKWbwIup HB2cnNBnNJsyPh0zGJO0Z kOmGeKtOGgjC9KqJQBkjq qcmzcovEH2LONyWXWcgP7 4Yp3iaDdvDEDp eIGUaC0lylwvq1dggdxuD kUcHLJbFCm4QHj5OQPmsB oiFgRoMPL0MxA1SHF3wKG spA4gxEjqqftj xH4mV2OlLTPvzzbeVq23o C8zJxXuWmO1TZnpOoq+Q0 4KTQFPQNIWYBJCEK4NTZ0 ES89IGIpehSF+ OQKgPIV7yBsaYMpnSWNqz P0oUZNhZ4l6CnHfFzZ2LY hnJ2AwJYMpjlgpLv41hQ4 qKoAgEmU7GZqs X2GggoF5QDOgtTNbRWvcR SS0E17vi2X0VXHcVDTdZC N4fOE8rQ9ddKrmzdflzER mdDsgdmVydGlj ZNzlVVrbC191LAHznMthM lG6HbR7NzI8AsG1N1YsAg n4VGAaaPpxTS2zmWLiDLc zOz5tgYibmVgn XI2hOVAhpmppZFPqdZ2jG GJuoHOmoPnbRP9yLCPeoa rem759RyNaQUO4HZJnvMS mD0CsxW0aGzOn LOUjUVXtZ6QenIJiGYfaB 627SBhzFxC1AVTmmbPbD3 KbVNYpfQsfCzM0o8B4Ut5 0NyBZZWFyczwv dGQ+GJNyPPM7cInoWXymY TNriT0zRKWtD2g4LnAcHu B0OPoiT7HuXQMjtcafAs5 4kH1dWgYdXxC9 TTiwX8OhtaO9HAPvpAJiA XbvMFA6K15ev0P5EKTdZI LiMCH3nDS9tT7nfBacmwt gbGVmdDsgdmVy kKnfHFcvONqbG728KYGal DsnPkZFTUFMRTwvdGQ+PH OaINV1rQjsGHusOSIuhF0 xHDIjS0b4JkZn AjZ2DXkeO2LlGPViqzxiA z98rX9zCxPrMpF5BKwtA1 BlgiM4TCFyyMVeDMpyYIM 5N61ab3D3DEMf FMQeKEP8sCY5dQ8kmCtqh jogbGVmdDsgdmVydGljYW daQOymB461OPApqKixHkL yPIQjIW1ucSbu dGQ+WO67es52N1UxMjugB zm0LRYaEAF4wRF6fU2dEU AqLRmps4Z7mJN6Q2ZfntV krh2ut2gyNTKa KMhuI22llADjh8V9KNGul JS0FISutIarBcZnjR24Fs c+ARXizGwfb5WcLgyan5o hg7rsiTu8FgSm CCRtrtWxmQalYEL4i8RkB h86M41dSZsjVMUgCPQjJR IwDTUsjXjtpj5ixI8nLw9 +SMFajRQ4eOR0 iI8eMfGhHyH9QOdsK020L lZraJMpSbtvu8sja8rxpL c5VwNjRITusfRytUdaOXJ 9z1UmOp43M8Kj eRmea2OoOgo5ya35cUCuv 2W8uFR1M3DvDBQnuqdlaY QlvGmtKY5iBTAboyxyQGC pxH9pTWQuI5u5 LtWtKuG3VIjdH4DranY4D XVnsNUpACAseRBWdY5rzy kmx6jrxeazAkRcPGErHOb 2RKm1FWVvpEal CyVrPHZ0XvV5RIG0gRPvb B6qvRmkolghrB8dNov+UG l5n5gytBGtVW1hnKT5UB5 7NZ83nSEtb3D5 dVU1V4QsKAJrvoppyxhea KM9HSKoKERioL09Ez8llJ ncVu8gRDTaCTY6NKEkcAB xG3RgjR3fVjJw ZUHfRCHsP4VktXIzGAomO 360VOhjIzP8FLJjccIyV3 VeJBZaoIaeLjZ5h2V2Un6 RLX19UL00FB68 zZZxu6L9lDJ5O9EpQOMbb ibdowkieUI1EHKkOPRwdX 69Jn6ihOptGk5uYSWgMAY 8ZSLjnLFgW5Hl zE1yEcGuDYOiPRByS6Rfy LBkMEbdG707JBpkVkI6SY IplgRsV5HoFPHqeXcwOrN 6j6D0Cr8KCf05 JU64KL66vBWus3S5rVG8R 9AkKLNjufjckbxmoYN6VT MuOYBapT54Dk6uhElnLz4 yXOGfJWN5XWGt dPGnT3PcrM5mZgUjCVEsB EOjD4XqwJLjJLmlA418RR coAwH3HIHcomZiX7HlGGN jiZrwBrZ1w9Y3 Tk4TZCftevg4P7UwYoieb HI+VV04WSNrSA99kGEuwE Pxc9fddIw5JuKxUXKwKMC 6pNdtLGezj5Ne ZXI (more content not included)... Normal [facility] Noteon 03-17-2024 Ambulance Note [id number]#[id number] OTGTIFF Normal [facility] C Urineon 03-17-2024 C Urine Urine Culture ordere d as a result of parameters set on specific urine dip and urine microsopic results. >100,000 cfu/ml Lactobacillus species Normal vaginal oleg isolated 10,000 cfu/ml Corynebacterium species (DIPTHEROID) No YOLANDE performed on this organism No pathogens isolated [facility] Comment on above: Performed By: #### 5 [id number], [id number] ####[facility] (DEFAULT)[address] [place] [address] .Auto Diff 1on 03-15-2024 Auto Stearns % 3 % Normal 12 [facility] Comment on above: Performed By: #### 5 [id number], [id number], [id number], [id number], 7675984151, 4252597, 2865210 #### [facility] (DEFAULT) [address] [place] [address] Baso Abs# 0.1 x10 Normal 0.0-0.2 [facility] Comment on above: Performed By: #### 5 [id number], [id number], [id number], [id number], [id number], 8984324, 0419409 #### [facility] (DEFAULT) [address] [place] [address] Basophils/100 WBC (Bld) 0.7 % Normal 0.2-2.0 [facility] Comment on above: Performed By: #### 5 [id number], [id number], [id number], 72451937, 0556890277, 1306401, 9349561 #### [facility] (DEFAULT) [address] [place] [address] Eos Abs# 0.1 x10 Normal 0.0-0.4 [facility] Comment on above: Performed By: #### 5 [id number], [id number], [id number], 48252708, 1467716814, 0894672, 8635954 #### [facility] (DEFAULT) [address] [place] [address] Eosinophils/100 WBC (Bld) 0.7 % Low 0.9-4.0 [facility] Comment on above: Performed By: #### 5 [id number], [id number], [id number], 53704361, 0784411225, 2870445, 0100478 #### [facility] (DEFAULT) [address] [place] [address] Lymph Abs# 2.2 x10 Normal 1.3-2.9 [facility] Comment on above: Performed By: #### 5 [id number], [id number], [id number], 50509838, 6784459940, 6061635, 9984817 #### [facility] (DEFAULT) [address] [place] [address] Lymphocytes/100 WBC (Bld) 14 % Normal 14-48 [facility] Comment on above: Performed By: #### 5 [id number], [id number], 3873809240, 35314536, 3051952998, 1185811, 6601128 #### [facility] (DEFAULT) [address] [place] [address] Stearns Abs# 0.5 x10 Normal 0.0-0.8 [facility] Comment on above: Performed By: #### 5 [id number], [id number], [id number], 38182387, 7241834854, 9190969, 8961218 #### [facility] (DEFAULT) [address] [place] [address] Neut Abs# 13.5 x10 High 1.5-9.2 [facility] Comment on above: Result Comment: Slid e Reviewed Performed By: #### 5 [id number], [id number], [id number], 07340968, 8687582909, 8209744, 9314620 #### [facility] (DEFAULT) [address] [place] [address] Neutrophils/100 WBC (Bld) 82 % Normal 44-88 [facility] Comment on above: Performed By: #### 5 [id number], [id number], 7742162856, 37334903, 9232657129, 5152548, 6661729 #### [facility] (DEFAULT) [address] [place] [address] CBC w/ Auto Diffon 4 Erythrocyte distribution width (RBC) [Ratio] 13.3 % Normal 11.5-15.0 [facility] Comment on above: Performed By: #### 5 [id number], [id number], 1056086608, 12307050, 7159409458, 9911563, 0477655 #### [facility] (DEFAULT) [address] [place] [address] Hematocrit (Bld) [Volume fraction] 45.0 % High 33.7-40.4 [facility] Comment on above: Performed By: #### 5 [id number], [id number], 5403096934, 77492837, 0743357759, 6004876, 2695765 #### [facility] (DEFAULT) [address] [place] [address] Hemoglobin (Bld) [Mass/Vol] 15.0 g/dL Normal 11.3-15.9 [facility] Comment on above: Performed By: #### 5 [id number], [id number], 6822798962, 00185130, 9869082315, 5086802, 7626457 #### [facility] (DEFAULT) [address] [place] [address] Man Diff? Auto Invalid Interpretation Code [facility] Comment on above: Performed By: #### 5 [id number], [id number], [id number], 54300469, 0640876630, 3029211, 6153814 #### [facility] (DEFAULT) [address] [place] [address] 14234 MCH (RBC) [Entitic mass] 32 pg Normal 24-34 [facility] Comment on above: Performed By: #### 5 [id number], [id number], 9675258761, 80633561, 8575391081, 2003751, 7593514 #### [facility] (DEFAULT) [address] [place] [address] MCHC (RBC) [Mass/Vol] 33 g/dL Normal 26-37 [facility] Comment on above: Performed By: #### 5 [id number], [id number], 9899203823, 63439116, 9749158324, 3013648, 6109326 #### [facility] (DEFAULT) [address] [place] [address] 36885 MCV (RBC) [Entitic vol] 95 fL Normal 81-100 [facility] Comment on above: Performed By: #### 5 [id number], [id number], [id number], 11076797, 9456316896, 8645272, 6801510 #### [facility] (DEFAULT) [address] [place] [address] 41568 Platelet 292 x10 Normal 138-427 [facility] Comment on above: Performed By: #### 5 [id number], [id number], [id number], 34297811, 9181788649, 0624388, 0815081 #### [facility] (DEFAULT) [address] [place] [address] 46313 Platelet mean volume (Bld) [Entitic vol] 8.7 fL Normal 6.3-10.2 [facility] Comment on above: Performed By: #### 5 [id number], [id number], 3494008571, 06128183, 8833891741, 4819119, 6748285 #### [facility] (DEFAULT) [address] [place] [address] 15695 RBC 4.74 x10 Normal 3.70-5.30 [facility] Comment on above: Performed By: #### 5 [id number], [id number], 8171630353, 26951668, 0719764565, 7205827, 5909085 #### [facility] (DEFAULT) [address] [place] [address] 19877 WBC 16.4 x10 High 3.5-10.5 [facility] Comment on above: Performed By: #### 5 [id number], 4886081909, 7026393126, 14775184, 4243296029, 5691376, 0559110 #### [facility] (DEFAULT) [address] [place] [address] 6[address] [facility] 03-15-2024 eGFR Non AA >60 Invalid Interpretation Code [facility] Comment on above: Performed By: #### 5 [id number], [id number], 5109587469, 74728293, 9275075902, 8294840, 5632998 #### [facility] (DEFAULT) [address] [place] [address] 08120 eGFR AA >60 Invalid Interpretation Code [facility] Comment on above: Performed By: #### 5 [id number], [id number], 4804252046, 43919505, 3202649577, 4925385, 6509512 #### [facility] (DEFAULT) [address] [place] [address] 24250 Albumin [Mass/Vol] 4.1 g/dL Normal 3.5-5.0 [facility] Comment on above: Performed By: #### 5 [id number], [id number], 5806333804, 79443414, 5237333808, 5397468, 8791306 #### [facility] (DEFAULT) [address] [place] [address] 74179 Albumin/Globulin [Mass ratio] 1.3 {ratio} Low 1.4-2.6 [facility] Comment on above: Performed By: #### 5 [id number], 0488630631, 4681137683, 09671143, 4287198161, 3522791, 1192204 #### [facility] (DEFAULT) [address] [place] [address] 99006 Alk Phos 39 IU/L Normal 32-91 [facility] Comment on above: Performed By: #### 5 [id number], [id number], 7057702779, 38757236, 2823128178, 3550333, 2596444 #### [facility] (DEFAULT) [address] [place] [address] 49205 ALT [Catalytic activity/Vol] 32.0 U/L Normal 14.0-54.0 [facility] Comment on above: Performed By: #### 5 [id number], 0235289511, 9165247764, 53159909, 4074152121, 2450832, 3064988 #### [facility] (DEFAULT) [address] [place] [address] Anion gap [Moles/Vol] 13.0 mmol/L Normal 5.0-19.0 [facility] Comment on above: Performed By: #### 5 [id number], 0834941447, 9568763224, 98093865, 5012051428, 3970565, 4910231 #### [facility] (DEFAULT) [address] [place] [address] 36941 AST [Catalytic activity/Vol] 25 U/L Normal 15-41 [facility] Comment on above: Performed By: #### 5 [id number], 3710978087, 5975640381, 29339172, 3748138692, 0480887, 3484984 #### [facility] (DEFAULT) [address] [place] [address] Bili Total 1.4 mg/dL High 0.3-1.2 [facility] Comment on above: Performed By: #### 5 [id number], 4143322805, 5808162158, 28790558, 9265152775, 4706835, 6769822 #### [facility] (DEFAULT) [address] [place] [address] 90597 Calcium [Mass/Vol] 8.8 mg/dL Low 8.9-10.3 [facility] Comment on above: Performed By: #### 5 [id number], 5121501898, 8987567820, 15288242, 4040567692, 0775746, 9003647 #### [facility] (DEFAULT) [address] [place] [address] 64612 Chloride [Moles/Vol] 105 mmol/L Normal 101-111 [facility] Comment on above: Performed By: #### 5 [id number], 2679178468, 5527523679, 86425882, 9556404408, 0708326, 9314406 #### [facility] (DEFAULT) [address] [place] [address] 35114 CO2 [Moles/Vol] 24 mmol/L Normal 21-32 [facility] Comment on above: Performed By: #### 5 [id number], 3622700168, 2383914636, 05215783, 9288257852, 3292147, 2504986 #### [facility] (DEFAULT) [address] [place] [address] 63679 Creatinine [Mass/Vol] 0.72 mg/dL Normal 0.60-1.30 [facility] Comment on above: Performed By: #### 5 [id number], 3858191551, 7117018411, 73895405, 8156756773, 4205036, 0080375 #### [facility] (DEFAULT) [address] [place] [address] 46908 Globulin (S) [Mass/Vol] 3.0 g/dL Normal 1.5-4.3 [facility] Comment on above: Performed By: #### 5 [id number], [id number], [id number], [id number], [id number], [id number], 7390511 #### [facility] (DEFAULT) [address] [place] [address] 15132 Glucose [Mass/Vol] 124.0 mg/dL High 74.0-118.0 [facility] Comment on above: Performed By: #### 5 [id number], [id number], [id number], [id number], [id number], [id number], 6556984 #### [facility] (DEFAULT) [address] [place] [address] 92930 Osmolality 278 mOsm/L Invalid Interpretation Code [facility] Comment on above: Performed By: #### 5 [id number], [id number], [id number], [id number], [id number], 9248489, 8080935 #### [facility] (DEFAULT) [address] [place] [address] 92207 Potassium [Moles/Vol] 4.0 mmol/L Normal 3.6-5.1 [facility] Comment on above: Performed By: #### 5 [id number], [id number], [id number], [id number], [id number], 3247460, 5007103 #### [facility] (DEFAULT) [address] [place] [address] 04983 Protein [Mass/Vol] 7.1 g/dL Normal 6.5-8.1 [facility] Comment on above: Performed By: #### 5 [id number], [id number], [id number], 56183179, 6324421911, 7755226, 4610154 #### [facility] (DEFAULT) [address] [place] [address] 23931 Sodium [Moles/Vol] 138.0 mmol/L Normal 136.0-144.0 [facility] Comment on above: Performed By: #### 5 [id number], [id number], [id number], 19542552, 2476107084, 0428468, 1973385 #### [facility] (DEFAULT) [address] [place] [address] 41923 Urea nitrogen [Mass/Vol] 15 mg/dL Normal 8-26 [facility] Comment on above: Performed By: #### 5 [id number], [id number], [id number], 99042731, 1046584400, 6712112, 7415990 #### [facility] (DEFAULT) [address] [place] [address] 58480 Urea nitrogen/Creatinine [Mass ratio] 20.8 mg/mg High 4.6-16.2 [facility] Comment on above: Performed By: #### 5 [id number], [id number], [id number], 43977460, 3529599479, 8906790, 7793216 #### [facility] (DEFAULT) [address] [place] [address] 41364 Breakpoint Chem Normal [facility] Comment on above: Performed By: #### 5 [id number], [id number], [id number], 08395291, [id number], 7998358, 5977685 #### [facility] (DEFAULT) [address] [place] [address] 00690 ED Clinical Summaryon 2023 ED Clinical Summary [facility] - Emergency Department [address] [place] [address] 45020 ED Clinical Summary PERSON INFORMATION Name: HORACIO KEATING Age: 48 Years Sex: FEMALE : 1975 MRN: Acct#: Visit Reason: Shortness of breath; Anxiety; Blood pressure check; SOB Arrival: 03/15/2024 17:56:51 Discharge: 03/15/2024 20:31:00 LOS: 000 02:35 Check In: 03/15/2024 17:56:51 Checkout:03/15/2024 20:31:00 Address: [address] [place] [address] PCP: SAMI MARINELLI PROVIDER INFORMATION Provider Role Assigned Unassigned Nicola Neff DO ED Provider 03/15/2024 18:07:25 Solange RN, Shanika Lawton ED Nurse 03/15/2024 18:08:57 Joanna [...] Physical Exa (more content not included)... [facility] ED Note - Physicianon 2023 ED [...] lymphadenopathy. Psychiatric: (more content not included)... [facility] ED Note-Nursingon 03-15-2024 ED Note-Nursing Patient presents to the ER via [facility] for shortness of breath, anxiety. Patient [...] 12 lead was regular in rate [facility] ED Patient Summaryon 024 ED Patient Summary [facility] - Emergency Department [address] [place] [address] PATIENT DISCHARGE INSTRUCTIONS Patient Information Name: HORACIO KEATING Age: 48 Years Date of : 1975 Reason For Visit: Shortness of breath; Anxiety; Blood pressure check; SOB Arrival Time: 03/15/2024 17:56:51 Primary Care Physician: SAMI MARINELLI Attending Physician: Nicola Neff DO Comment: Visit Diagnosis: Diagnoses This Visit Anxiety ([id number]) Blood pressure check ([id number]) Hypertension (I10) Panic attack (F41.0) Shortness of breath ([id number]) Urinary tract infection (N39.0) The Pharmacy at [facility] is open Friday through Friday from [...] alcohol and/or drug addiction problems; contact the [facility] 23/06 Crisis Hotline -Text 0EJBM mr [id number]. If you received any narcotics, sedation, or [...] legal documents With: Address: When: SAMI MARINELLI [address] [place] [address] [address] [place] [id number] Business (1) Within 3 to 5 days Comments: Call for follow up appointment Return if symptoms worsen Medication Information: The exam and treatment you received today in the [facility] Emergency Department were for an urgent problem and are not intended as complete care. It is important for you to follow up with a doctor, nurse practitioner, or physician?s fire control assistant for ongoing care. If your symptoms [...] so we can reach you if necessary. [facility] Emergency Department has provided you with a complete list of medications post discharge. Please inform your cooling tower technician/provider of your visit and for further instruction [...] Vitals an (more content not included)... Normal [facility] Extra [facility] 03-15-2024 Tube Collected Yes Invalid Interpretation Code [facility] Comment on above: Performed By: #### 5 [id number], [id number], [id number], [id number], [id number], 0732267, 0380085 #### [facility] (DEFAULT) [address] [place] [address] Extra Redon 03-15-2024 Tube Collected Yes Invalid Interpretation Code [facility] Comment on above: Performed By: #### 5 [id number], [id number], [id number], 03233830, 3675388779, 0700823, 3921603 #### [facility] (DEFAULT) [address] [place] [address] PTon 03-15-2024 INR Coag (PPP) [Relative time] 0.94 {INR} Normal 0.91-1.11 [facility] Comment on above: Performed By: #### 5 [id number], [id number], [id number], 75353717, 0942190430, 6169491, 5451578 #### [facility] (DEFAULT) [address] [place] [address] PT 9.8 second(s) Normal 9.7-11.8 [facility] Comment on above: Performed By: #### 5 [id number], [id number], 6144417771, 66840340, 5790706592, 8023674, 0253315 #### [facility] (DEFAULT) [address] [place] [address] TnI HSon 03-15-2024 Troponin I High Sensitivity 7.7 pg/mL Normal <=15.0 [facility] Comment on above: Performed By: #### 5 [id number], [id number], 1030286329, 96962133, 9475524199, 7938530, 6880983 #### [facility] (DEFAULT) [address] [place] [address] 82099 UA Cermv1km 03-15-2024 UA Amorph. 1+ Normal [facility] Comment on above: Order Comment: Urina lysis Microscopic order added on by Discern Expert Rules system. Performed By: #### 5 [id number], [id number], 7887305 ####[facility] (DEFAULT)[address] [place] [address] 52468 UA Bacteria 3+ [facility] Comment on above: Order Comment: Urina lysis Microscopic order added on by Dis[employer] Expert Rules system. Performed By: #### 5 [id number], [id number], 9181537 ####[facility] (DEFAULT)[address] [place] [address] UA Mucous 1+ [facility] Comment on above: Order Comment: Urina lysis Microscopic order added on by Discern Expert Rules system. Performed By: #### 5 [id number], [id number], [id number] ####[facility] (DEFAULT)[address] [place] [address] 77129 UA RBC 3-5 [facility] Comment on above: Order Comment: Urina lysis Microscopic order added on by Discern Expert Rules system. Performed By: #### 5 [id number], [id number], [id number] ####[facility] (DEFAULT)[address] [place] [address] UA Renal Epi Rare [facility] Comment on above: Order Comment: Urina lysis Microscopic order added on by Discern Expert Rules system. Performed By: #### 5 [id number], [id number], [id number] ####[facility] (DEFAULT)[address] [place] [address] UA Squam Epi Many [facility] Comment on above: Order Comment: Urina lysis Microscopic order added on by Discern Expert Rules system. Performed By: #### 5 [id number], [id number], [id number] ####[facility] (DEFAULT)[address] [place] [address] UA WBC 3-5 [facility] Comment on above: Order Comment: Urina lysis Microscopic order added on by Fanminder Expert Rules system. Performed By: #### 5 [id number], [id number], [id number] ####[facility] (DEFAULT)[address] [place] [address] UA w Culture if Ind Standard on 03-15-2024 Breakpoint UA [facility] Comment on above: Performed By: #### 5 [id number], [id number], 0286507 ####[facility] (DEFAULT)[address] [place] [address] 28921 Color (U) Yellow Normal [facility] Comment on above: Performed By: #### 5 [id number], [id number], 6668369 ####[facility] (DEFAULT)[address] [place] [address] 16833 Culture? Indicated Invalid Interpretation Code [facility] Comment on above: Result Comment: Resu lt created by rule GL_MAGR_ADD_UA_CULT Result created by rule GL_MAGR_ADD_UA_CULT Result created by rule GL_MAGR_ADD_UA_CULT1 Result created by rule GL_MAGR_ADD_UA_CULT Performed By: #### 5 [id number], [id number], [id number] ####[facility] (DEFAULT)[address] [place] [address] 52860 Glucose (U) [Mass/Vol] Negative Normal [facility] Comment on above: Performed By: #### 5 [id number], [id number], [id number] ####[facility] (DEFAULT)[address] [place] [address] 91418 Ketones Ql (U) Negative [facility] Comment on above: Performed By: #### 5 [id number], [id number], 0904871 ####[facility] (DEFAULT)[address] [place] [address] 56761 Micro? Indicated Invalid Interpretation Code [facility] Comment on above: Result Comment: Resu lt created by rule GL_MAGR_ADD_UA_MICRO Performed By: #### 5 [id number], [id number], 7194828 ####[facility] (DEFAULT)[address] [place] [address] 66302 UA Bilirubin Negative Normal [facility] Comment on above: Performed By: #### 5 [id number], [id number], 8369219 ####[facility] (DEFAULT)[address] [place] [address] 25765 UA Blood TRACE Abnormal NEGATIVE [facility] Comment on above: Performed By: #### 5 [id number], [id number], 6823829 ####[facility] (DEFAULT)[address] [place] [address] 63416 UA Clarity SL CLOUDY Abnormal CLEAR [facility] Comment on above: Performed By: #### 5 [id number], [id number], 0884478 ####[facility] (DEFAULT)[address] [place] [address] 72914 UA Leuk Est LARGE Abnormal NEGATIVE [facility] Comment on above: Performed By: #### 5 [id number], [id number], 7173802 ####[facility] (DEFAULT)[address] [place] [address] 52302 UA Nitrite Negative Normal NEGATIVE [facility] Comment on above: Performed By: #### 5 [id number], [id number], 4694871 ####[facility] (DEFAULT)[address] [place] [address] 28633 UA pH 6.0 Normal 5-8 [facility] Comment on above: Performed By: #### 5 [id number], 7759128971, 4200619 ####[facility] (DEFAULT)[address] [place] [address] 56101 UA Protein Negative Normal NEGATIVE [facility] Comment on above: Performed By: #### 5 [id number], [id number], 8845331 ####[facility] (DEFAULT)[address] [place] [address] 77242 UA Spec Grav 1.015 Normal 1.001-1.035 [facility] Comment on above: Performed By: #### 5 [id number], [id number], 6543263 ####[facility] (DEFAULT)[address] [place] [address] 92869 UA Urobilinogen 0.2 mg/dL Normal 0.2-1.0 [facility] Comment on above: Performed By: #### 5 [id number], [id number], 3121690 ####[facility] (DEFAULT)[address] [place] [address] 39443 Urine Source Clean Catch Normal [facility] Comment on above: Performed By: #### 5 [id number], [id number], 7079514 ####[facility] (DEFAULT)[address] [place] [address] XR Chest 1 View Frontalon XR Chest [...] MD 03/15/24 7:34 pm Technologist: Lizzy BRICEÑO [facility] Calcium [Mass/volume] in Ser um or PlasmaOrdered By: Dedrick Fuller on 08-15-2023 Calcium [Mass/Vol] 9.1 mg/dL 8.6-10.3 [facility] Carbon dioxide, total [Moles /volume] in Serum or PlasmaOrdered By: Dedrick Fuller on 08-15-2023 CO2 [Moles/Vol] 26.7 mmol/L 21.0-31.0 [facility] Chloride [Moles/volume] in S altagracia or PlasmaOrdered By: Dedrick Fuller on 08-15-2023 Chloride [Moles/Vol] 107 mmol/L 98-107 [facility] Cholesterol [Mass/volume] in Serum or PlasmaOrdered By: Dedrick Fuller on 08-15-2023 Cholesterol [Mass/Vol] 166 mg/dL 140-200 [facility] Comment on above: Chol less than 200 m g/dl low riskChol 201-239 mg/dl borderline riskChol 240 mg/dl and greater high risk Cholesterol in LDL Calc [Mas s/Vol]Ordered By: Dedrick Fuller on 08-15-2023 Cholesterol in LDL [Mass/Vol] 95 mg/dL 0-100 [facility] Comment on above: LDL ATP III CLASSIFI CATIONLDL less than 100 mg/dL OptimalLDL 100-129 mg/dL Near or above optimalLDL 130-159 mg/dL Borderline highLDL 160-189 mg/dL HighLDL greater than 189 mg/dL Very high Cholesterol in VLDL Calc [Ma ss/Vol]Ordered By: Dedrick Fuller on 08-15-2023 Cholesterol in VLDL [Mass/Vol] 32 mg/dL [facility] Creatinine [Mass/volume] in Serum or PlasmaOrdered By: Dedrick Fuller on 08-15-2023 Creatinine [Mass/Vol] 0.77 mg/dL 0.60-1.[address] [facility] Glucose [Mass/volume] in Ser um or [...] 08-15-2023 Estimated GFR (CKD-EPI) > 60.0 mL/Min [facility] Creatinine Clearance (Chem N/A [facility] Potassium [Moles/volume] in Serum or PlasmaOrdered By: Dedrick Fuller on 08-15-2023 Potassium [Moles/Vol] 4.0 mmol/L 3.5-5.[address] [facility] Serum or plasma anion gap de terminationOrdered By: Dedrick Fuller on 08-15-2023 Anion gap [Moles/Vol] 10.3 mmol/L 6.0-15.[facility] Serum or plasma high density lipoprotein (HDL) cholesterol measurementOrdered By: Dedrick Fuller on 08-15-2023 Cholesterol in HDL [Mass/Vol] 39 mg/dL 23-92 [facility] Comment on above: HDL CHOL ATP-III CLA SSIFICATION Cardiovascular RiskHDL > or equal to 60 mg/dL LOWHDL < 40 mg/dL HIGH Serum or plasma total choles terol/high density lipoprotein (HDL) cholesterol mass ratOrdered By: Dedrick Fuller on 08-15-2023 Cholesterol.total/Mirta sterol in HDL [Mass ratio] 4.3 {ratio} <5.0 [facility] Sodium [Moles/volume] in Ser um or PlasmaOrdered By: Dedrick Fuller on 08-15-2023 Sodium [Moles/Vol] 140 mmol/L 136-145 [facility] Triglyceride [Mass/volume] i n Serum or PlasmaOrdered By: Dedrick Fuller on 08-15-2023 Triglyceride [Mass/Vol] 162 mg/dL 0-149 [facility] Comment on above: TRIG ATP III CLASSIF ICATIONTRIG less than 150 mg/dL NormalTRIG 150-199 mg/dL Borderline highTRIG 200-500 mg/dL High TRIG greater than 500 mg/dL Very highStandard traceable to the Center for Disease Conrtrol and Prevention (CDC) test method. Urea nitrogen [Mass/volume] in Serum or PlasmaOrdered By: Dedrick Fuller on 08-15-2023 Urea nitrogen [Mass/Vol] 10 mg/dL 06-24 [facility] GTT 2 HRon 11-09-2022 Glucose [Mass/Vol] 107 mg/dL Critically high 74-106 T [facility] Comment on above: Performed By: #### U LG, CRP #### [facility] [address] [place] [address] [address] Soo Donnelly Glucose [Mass/Vol] 152 mg/dL Normal [facility] Comment on above: Performed By: #### U LG, CRP #### [facility] [address] [place] [address] [address] Soo Donnelly Glucose [Mass/Vol] 121 mg/dL Normal [facility] Comment on above: Performed By: #### U LG, CRP #### [facility] [address] [place] [address] [address] Soo Donnelly Facesheeton 11-05-2022 Facesheet [id number] .00CD:127 Normal [facility] Physician Referralon 022 Physician Referral [id number] .[id number]:[address] [facility] [address] ABD/PELV W CONon 10-01-[address] [...] ELENA SAUCEDA Date: 2022-10-01 10:31 Normal [facility] CBC AUTO DIFFon 09-18-2022 BASO # 0.0 103/ul Normal 0.0-0.1 [facility] Comment on above: Performed By: #### A NAD #### [facility] [address] [place], [place] [address] Dr. Soo Donnelly Basophils/100 WBC (Bld) 0.4 % Normal 0.2-2.0 T [facility] Comment on above: Performed By: #### A NAD #### [facility] [address] [place], [place] [address] Dr. Soo Donnelly EO # 0.1 103/ul Normal 0.0-0.7 [facility] Comment on above: Performed By: #### A NAD #### [facility] [address] [place] [address] Dr. Soo Donnelly Eosinophils/100 WBC (Bld) 1.8 % Normal 0.9-7.0 [facility] Comment on above: Performed By: #### A NAD #### [facility] [address] [place] [address] Dr. Soo Donnelly Erythrocyte distribution width (RBC) [Ratio] 11.9 % Normal 11.0-15.0 [facility] Comment on above: Performed By: #### A NAD #### [facility] [address] [place] [address] Dr. Soo Donnelly Hematocrit (Bld) [Volume fraction] 43.9 % Normal 36.0-48.0 [facility] Comment on above: Performed By: #### A NAD #### [facility] [address] [place] [address] Dr. Soo Donnelly Hemoglobin (Bld) [Mass/Vol] 14.6 g/dL Normal 12.0-16.0 [facility] Comment on above: Performed By: #### A NAD #### [facility] [address] [place] [address] Dr. Soo Donnelly IG # 0.01 10e3/ul Normal 0.00-0.03 [facility] Comment on above: Performed By: #### A NAD #### [facility] [address] [place] [address] Dr. Soo Donnelly IG % 0.1 % Normal 0.0-0.5 [facility] Comment on above: Performed By: #### A NAD #### [facility] [address] [place] [address] Dr. Soo Donnelly LYMPH # 2.7 103/ul Normal 1.2-3.8 [facility] Comment on above: Performed By: #### A NAD #### [facility] [address] [place] [address] Dr. Soo Donnelly Lymphocytes/100 WBC (Bld) 39.9 % Normal 20.5-60.0 [facility] Comment on above: Performed By: #### A NAD #### [facility] [address] [place] [address] Dr. Soo Donnelly MANUAL DIFF REQ NO Normal [facility] Comment on above: Performed By: #### A NAD #### [facility] [address] [place] [address] Dr. Soo Donnelly MCH (RBC) [Entitic mass] 31.7 pg Normal 26.7-34.0 [facility] Comment on above: Performed By: #### A NAD #### [facility] [address] [place] [address] Dr. Soo Donnelly MCHC (RBC) [Mass/Vol] 33.3 g/dL Normal 29.9-35.2 [facility] Comment on above: Performed By: #### A NAD #### [facility] [address] [place] [address] Dr. Soo Donnelly MCV (RBC) [Entitic vol] 95.4 fL Normal 81.0-99.0 [facility] Comment on above: Performed By: #### A NAD #### [facility] [address] [place] [address] Dr. Soo Donnelly MONO # 0.4 103/ul Normal 0.3-0.8 [facility] Comment on above: Performed By: #### A NAD #### [facility] [address] [place] [address] Dr. Soo Donnelly Monocytes/100 WBC (Bld) 5.9 % Normal 1.7-12.0 [facility] Comment on above: Performed By: #### A NAD #### [facility] [address] [place] [address] Dr. Soo Donnelly NEUT # 3.5 103/ul Normal 1.4-6.5 [facility] Comment on above: Performed By: #### A NAD #### [facility] [address] [place] [address] Dr. Soo Donnelly Neutrophils/100 WBC (Bld) 51.9 % Normal 43.0-75.0 [facility] Comment on above: Performed By: #### A NAD #### [facility] [address] [place] [address] Dr. Soo Donnelly Platelet mean volume (Bld) [Entitic vol] 10.8 fL Normal 9.5-13.5 [facility] Comment on above: Performed By: #### A NAD #### [facility] [address] [place] [address] Dr. Soo Donnelly PLT 220 103/ul Normal 150-450 [facility] Comment on above: Performed By: #### A NAD #### [facility] [address] [place] [address] Dr. Soo Donnelly RBC 4.60 106/ul Normal 4.20-5.40 [facility] Comment on above: Performed By: #### A NAD #### [facility] [address] [place] [address] Dr. Soo Donnelly WBC 6.8 103/ul Normal 4.0-11.0 [facility] Comment on above: Performed By: #### A NAD #### [facility] [address] [place] [address] Dr. Soo Donnelly ER URINE PROFILEon 2 Bilirubin Ql (U) Negative Normal NEGATIVE [facility] Comment on above: Performed By: #### U LG, CRP #### [facility] [address] [place] [address] Dr. Soo Donnelly Clarity (U) CLEAR Normal CLEAR [facility] Comment on above: Performed By: #### U LG, CRP #### [facility] [address] [place] [address] Dr. Soo Donnelly Color (U) LT. YELLOW Normal YELLOW [facility] Comment on above: Performed By: #### U LG, CRP #### [facility] [address] [place] [address] Dr. Soo Donnelly ERUAHD A micrscopic examination will be performed if indicated. Normal [facility] Comment on above: Performed By: #### U LG, CRP #### [facility] [address] [place] [address] Dr. Soo Donnelly Glucose Ql (U) Negative Normal NEGATIVE [facility] Comment on above: Performed By: #### U LG, CRP #### [facility] [address] [place] [address] [address] Soo Donnelly Hemoglobin Ql (U) Negative Normal NEGATIVE [facility] Comment on above: Performed By: #### U LG, CRP #### [facility] [address] [place] [address] [address] Soo Donnelly Ketones Ql (U) Negative Normal NEGATIVE [facility] Comment on above: Performed By: #### U LG, CRP #### [facility] [address] [place] [address] [address] Soo Donnelly LEUKOCYTES Negative Normal NEGATIVE [facility] Comment on above: Performed By: #### U LG, CRP #### [facility] [address] [place] [address] [address] Soo Donnelly Nitrite Ql (U) Negative Normal NEGATIVE [facility] Comment on above: Performed By: #### U LG, CRP #### [facility] [address] [place] [address] [address] Soo Donnelly pH (U) 6.0 [pH] Normal 5-9 [facility] Comment on above: Performed By: #### U LG, CRP #### [facility] [address] [place] [address] [address] Soo Donnelly SPEC GRAVITY 1.015 Normal 1.005-<=1.02 5 [facility] Comment on above: Performed By: #### U LG, CRP #### [facility] [address] [place] [address] [address] Soo Donnelly UA PROTEIN Negative Normal NEGATIVE/ TRACE [facility] Comment on above: Performed By: #### U LG, CRP #### [facility] [address] [address] [address] Soo Donnelly UR MICRO IND NOT INDICATED Normal [facility] Comment on above: Performed By: #### U LG, CRP #### [facility] [address] [address] [address] Soo Donnelly Urobilinogen Qn (U) 0.2 {Roma'U}/dL Normal 0.2 - 1. 0 [facility] Comment on above: Performed By: #### U LG, CRP #### [facility] [address] [place] [address] Dr. Soo Donnelly PROF CHEM 8 (BAS METB)on Anion gap [Moles/Vol] 10.2 mmol/L Normal Th e [facility] Comment on above: Performed By: #### B MP #### [facility] [address] [address] [address] Soo Donnelly Calcium [Mass/Vol] 8.7 mg/dL Normal 8.5-10.1 [facility] Comment on above: Performed By: #### B MP #### [facility] [address] [place] [address] Dr. Soo Donnelly Chloride [Moles/Vol] 103 mmol/L Normal 98-107 [facility] Comment on above: Performed By: #### B MP #### [facility] [address] [place] [address] Dr. Soo Donnelly CO2 [Moles/Vol] 27.9 mmol/L Normal 21.0-32.0 [facility] Comment on above: Performed By: #### B MP #### [facility] [address] [place] [address] Dr. Soo Donnelly Creatinine [Mass/Vol] 0.80 mg/dL Normal 0.55-1.02 [facility] Comment on above: Performed By: #### B MP #### [facility] [address] [place] [address] Dr. Soo Donnelly EGFR-AF JAPANESE >60 Normal >=60 [facility] Comment on above: Performed By: #### B MP #### [facility] [address] [place] [address] Dr. Soo Donnelly EGFR-NON AF JAPANESE >60 Normal >=60 [facility] Comment on above: Performed By: #### B MP #### [facility] [address] [place] [address] Dr. Soo Donnelly Glucose [Mass/Vol] 103 mg/dL Normal 74-106 [facility] Comment on above: Performed By: #### B MP #### [facility] [address] [address] [address] Soo Donnelly Potassium [Moles/Vol] 4.1 mmol/L Normal 3.5-5.1 [facility] Comment on above: Performed By: #### B MP #### [facility] [address] [address] [address] Soo Donnelly Sodium [Moles/Vol] 137 mmol/L Normal 136-145 [facility] Comment on above: Performed By: #### B MP #### [facility] [address] [address] [address] Soo Donnelly Urea nitrogen [Mass/Vol] 11.0 mg/dL Normal 7.0-18.0 [facility] Comment on above: Performed By: #### B MP #### [facility] [address] [address] [address] Soo Donnelly Urea nitrogen/Creatinine [Mass ratio] 13.8 mg/mg Normal [facility] Comment on above: Performed By: #### B MP #### [facility] [address] [address] [address] Soo Donnelly XR KUB 1 VIEWon [...] LUZ ELENA SAUCEDA Date: 2022-09-18 12:12 Normal [facility] MG MAMM SCREEN 3D DEAN CADon 09-12-2022 MG MAMM SCREEN 3D DEAN CAD Patient: HORACIO KEATING Exam Date: 09/12/2022 : 1975 Gender:F Ordering : DR AURA MURILLO . Admission #: [id number] Family : Order #: [id number] CLICK HERE TO VIEW EXAM RADIOLOGY REPORT [...] ovarian cancer at age 77. LOCATION: [facility] BREAST COMPOSITION: Scattered areas fibroglandular density. [...] MD on 09/13/2022 at 07:46 Normal [facility] INSULINon 07-20-2022 Insulin 25.5 uIU/mL Critically high 2.6-24.9 [facility] Comment on above: Performed By: #### U LG, CRP #### [facility] [address] [place] [address] Dr. Soo Donnelly T4 LABCORPon 07-20-2022 T4 [Mass/Vol] 7.4 ug/dL Normal 4.5-12.0 [facility] Comment on above: Performed By: #### A NAD #### [facility] [address] [address] [address] Soo Donnelly CBC W MANUAL DIFFon 07-19-20 22 ATYPICAL LYMPH # Normal [facility] Comment on above: Performed By: #### B UN, CREA #### [facility] [address] [place] [address] Dr. Soo Donnelly ATYPICAL LYMPH % Normal [facility] Comment on above: Performed By: #### B UN, CREA #### [facility] [address] [place] [address] Dr. Soo Donnelly BAND # Normal 0.0-0.3 [facility] Comment on above: Performed By: #### B UN, CREA #### [facility] [address] [place] [address] Dr. Soo Donnelly BAND % Normal 0-5 [facility] Comment on above: Performed By: #### B UN, CREA #### [facility] [address] [place] [address] Dr. Soo Donnelly BASOM # 0.00 103/ul Normal 0.00-0.10 [facility] Comment on above: Performed By: #### B UN, CREA #### [facility] [address] [place] [address] Dr. Soo Donnelly BASOM % 0.0 % Critically low 0.2-2.0 [facility] Comment on above: Performed By: #### B UN, CREA #### [facility] [address] [place] [address] Dr. Soo Donnelly BLAST # Normal [facility] Comment on above: Performed By: #### B UN, CREA #### [facility] [address] [place] [address] Dr. Soo Donnelly BLAST % Normal [facility] Comment on above: Performed By: #### B UN, CREA #### [facility] [address] [place] [address] Dr. Soo Donnelly CORRECTED WBC Normal 4.0-11.0 [facility] Comment on above: Performed By: #### B UN, CREA #### [facility] [address] [place] [address] Dr. Soo Donnelly EOS # 0.31 103/ul Normal 0.00-0.70 [facility] Comment on above: Performed By: #### B UN, CREA #### [facility] [address] [place] [address] Dr. Soo Donnelly EOS% 2.0 % Normal 0.9-7.0 [facility] Comment on above: Performed By: #### B UN, CREA #### [facility] [address] [address] [address] Soo Donnelly HCT 41.6 % Normal 36.0-48.0 [facility] Comment on above: Performed By: #### B UN, CREA #### [facility] [address] [address] [address] Soo Donnelly HGB 13.8 g/dl Normal 12.0-16.0 [facility] Comment on above: Performed By: #### B UN, CREA #### [facility] [address] [address] [address] Soo Donnelly LYMPHM # 5.27 103/ul Critically high 1.20-3.80 [facility] Comment on above: Performed By: #### B UN, CREA #### [facility] [address] [place] [address] Dr. Soo Donnelly LYMPHM% 34.0 % Normal 20.5-60.0 [facility] Comment on above: Performed By: #### B UN, CREA #### [facility] [address] [place] [address] Dr. Soo Donnelly MCH 31.5 pg Normal 26.7-34.0 [facility] Comment on above: Performed By: #### B UN, CREA #### [facility] [address] [place] [address] Dr. Soo Donnelly MCHC 33.2 g/dl Normal 29.9-35.2 [facility] Comment on above: Performed By: #### B UN, CREA #### [facility] [address] [place] [address] Dr. Soo Donnelly MCV 95.0 fL Normal 81.0-99.0 [facility] Comment on above: Performed By: #### B UN, CREA #### [facility] [address] [place] [address] Dr. Soo Donnelly METAMYELOCYTE # Normal [facility] Comment on above: Performed By: #### B UN, CREA #### [facility] [address] [place] [address] Dr. Soo Donnelly METAMYELOCYTE % Normal [facility] Comment on above: Performed By: #### B UN, CREA #### [facility] [address] [place] [address] Dr. Soo Donnelly MONOM# 0.93 103/ul Critically high 0.30-0.80 [facility] Comment on above: Performed By: #### B UN, CREA #### [facility] [address] [place] [address] Dr. Soo Donnelly MONOM% 6.0 % Normal 1.7-12.0 [facility] Comment on above: Performed By: #### B UN, CREA #### [facility] [address] [place] [address] Dr. Soo Donnelly MPV 10.1 fL Normal 9.5-13.5 [facility] Comment on above: Performed By: #### B UN, CREA #### [facility] [address] [place] [address] Dr. Soo Donnelly MYELOCYTE # Normal [facility] Comment on above: Performed By: #### B UN, CREA #### [facility] [address] [place] [address] Dr. Soo Donnelly MYELOCYTE % Normal [facility] Comment on above: Performed By: #### B UN, CREA #### [facility] [address] [place] [address] Dr. Soo Donnelly NRBC Normal [facility] Comment on above: Performed By: #### B UN, CREA #### [facility] [address] [place] [address] Dr. Soo Donnelly PLT 260 103/ul Normal 150-450 [facility] Comment on above: Performed By: #### B UN, CREA #### [facility] [address] [place] [address] Dr. Soo Donnelly RBC 4.38 106/ul Normal 4.20-5.40 [facility] Comment on above: Performed By: #### B UN, CREA #### [facility] [address] [place] [address] Dr. Soo Donnelly RDW 12.5 % Normal 11.0-15.0 [facility] Comment on above: Performed By: #### B UN, CREA #### [facility] [address] [address] [address] Soo Donnelly SEG # 8.99 103/ul Critically high 1.40-6.50 [facility] Comment on above: Performed By: #### B UN, CREA #### [facility] [address] [address] [address] Soo Donnelly SEG % 58.0 % Normal 43.0-75.0 [facility] Comment on above: Performed By: #### B UN, CREA #### [facility] [address] [address] [address] Soo Donnelly WBC 15.5 103/ul Critically high 4.0-11.0 [facility] Comment on above: Performed By: #### B UN, CREA #### [facility] [address] [place] [address] Dr. Soo Donnelly FREE T3on 07-19-2022 FREE T3 2.62 pg/mlL Normal 2.18-3.98 [facility] Comment on above: Performed By: #### U LG, CRP #### [facility] [address] [place] [address] Dr. Soo Donnelly GLYCOHEMOGLOBIN A1Con 2021 ADA RECOMMENDATION SEE BELOW Normal [facility] Comment on above: Result Comment: ADA RECOMMENDED LIMIT 4.0 - 6.0 ADA THERAPEUTIC TARGET < 7.0 ACTION SUGGESTED > 7.0 Performed By: #### U LG, CRP #### [facility] [address] [place] [address] Dr. Soo Donnelly Glucose [Mass/Vol] 137 mg/dL Normal [facility] Comment on above: Performed By: #### U LG, CRP #### [facility] [address] [address] [address] Soo Donnelly HbA1c (Bld) [Mass fraction] 6.4 % Critically high 4.5-6.2 [facility] Comment on above: Performed By: #### U LG, CRP #### [facility] [address] [address] [address] Soo Donnelly LIPID PROFILEon 07-19-2022 CHOL-HDL RATIO NORM SEE BELOW Normal [facility] Comment on above: Result Comment: 3.3 - 4.4 LOW RISK 4.4 - 7.1 AVERAGE RISK 7.1 - 11.0 MODERATE RISK >11.0 HIGH RISK Performed By: #### U LG, CRP #### [facility] [address] [address] [address] Soo Donnelly Cholesterol [Mass/Vol] 226 mg/dL Critically high <=200 [facility] Comment on above: Performed By: #### U LG, CRP #### [facility] [address] [address] [address] Soo Donnelly Cholesterol in HDL [Mass/Vol] 33 mg/dL Critically low 40-60 [facility] Comment on above: Performed By: #### U LG, CRP #### [facility] [address] [address] [address] Soo Donnelly Cholesterol in LDL [Mass/Vol] 135.2 mg/dL Normal [facility] Comment on above: Performed By: #### U LG, CRP #### [facility] [address] [address] [address] Soo Donnelly Cholesterol.total/Mirta sterol in HDL [Mass ratio] 6.8 {ratio} Normal [facility] Comment on above: Performed By: #### U LG, CRP #### [facility] [address] [address] [address] Soo Donnelly HDL NORMAL > or = 60 mg/dl - LO W CARDIOVASCULAR RISK <40 mg/dl - HIGH CARDIOVASCULAR RISK Normal [facility] Comment on above: Performed By: #### U LG, CRP #### [facility] [address] [address] [address] Soo Donnelly LDL CALC NORMAL SEE BELOW Normal [facility] Comment on above: Result Comment: <100 mg/dl OPTIMAL 100 - 129 mg/dl NEAR OR ABOVE OPTIMAL 130 - 159 mg/dl BORDERLINE HIGH 160 - 189 mg/dl HIGH >190 mg/dl VERY HIGH Performed By: #### U LG, CRP #### [facility] [address] [address] [address] Soo Donnelly Triglyceride [Mass/Vol] 289 mg/dL Critically high <=150 [facility] Comment on above: Performed By: #### U LG, CRP #### [facility] [address] [address] [address] Soo Donnelly VLDL CALC 57.8 mg/dL Normal [facility] Comment on above: Performed By: #### U LG, CRP #### [facility] [address] [address] [address] Soo Donnelly PROF 14(COMP METB)on 022 Albumin [Mass/Vol] 3.2 g/dL Critically low 3.4-5.0 Th e [facility] Comment on above: Performed By: #### U LG, CRP #### [facility] [address] [place] [address] Dr. Soo Donnelly Albumin/Globulin [Mass ratio] 1.1 {ratio} Normal [facility] Comment on above: Performed By: #### U LG, CRP #### [facility] [address] [place] [address] Dr. Soo Donnelly ALP [Catalytic activity/Vol] 41 U/L Critically low 46-116 [facility] Comment on above: Performed By: #### U LG, CRP #### [facility] [address] [address] [address] Soo Donnelly ALT [Catalytic activity/Vol] 46 U/L Normal 14-59 [facility] Comment on above: Performed By: #### U LG, CRP #### [facility] [address] [address] [address] Soo Donnelly Anion gap [Moles/Vol] 9.3 mmol/L Normal [facility] Comment on above: Performed By: #### U LG, CRP #### [facility] [address] [address] [address] Soo Donnelly AST [Catalytic activity/Vol] 18 U/L Normal 15-37 [facility] Comment on above: Performed By: #### U LG, CRP #### [facility] [address] [address] [address] Soo Donnelly Bilirubin [Mass/Vol] 0.7 mg/dL Normal 0.2-1.0 [facility] Comment on above: Performed By: #### U LG, CRP #### [facility] [address] [address] [address] Soo Donnelly Calcium [Mass/Vol] 8.1 mg/dL Critically low 8.5-10.1 [facility] Comment on above: Performed By: #### U LG, CRP #### [facility] [address] [address] [address] Soo Donnelly Chloride [Moles/Vol] 101 mmol/L Normal 98-107 [facility] Comment on above: Performed By: #### U LG, CRP #### [facility] [address] [place] [address] Dr. Soo Donnelly CO2 [Moles/Vol] 31.1 mmol/L Normal 21.0-32.0 [facility] Comment on above: Performed By: #### U LG, CRP #### [facility] [address] [place] [address] Dr. Soo Donnelly Creatinine [Mass/Vol] 0.77 mg/dL Normal 0.55-1.02 [facility] Comment on above: Performed By: #### U LG, CRP #### [facility] [address] [address] [address] Soo Donnelly EGFR-AF JAPANESE >60 Normal >=60 [facility] Comment on above: Performed By: #### U LG, CRP #### [facility] [address] [address] [address] Soo Donnelly EGFR-NON AF JAPANESE >60 Normal >=60 [facility] Comment on above: Performed By: #### U LG, CRP #### [facility] [address] [place] [address] Dr. Soo Donnelly Globulin (S) [Mass/Vol] 3.0 g/dL Normal T [facility] Comment on above: Performed By: #### U LG, CRP #### [facility] [address] [address] [address] Soo Donnelly Glucose [Mass/Vol] 104 mg/dL Normal 74-106 [facility] Comment on above: Performed By: #### U LG, CRP #### [facility] [address] [address] [address] Soo Donnelly Potassium [Moles/Vol] 3.4 mmol/L Critically low 3.5-5.1 [facility] Comment on above: Performed By: #### U LG, CRP #### [facility] [address] [address] [address] Soo Donnelly Protein [Mass/Vol] 6.2 g/dL Critically low 6.4-8.2 [facility] Comment on above: Performed By: #### U LG, CRP #### [facility] [address] [address] [address] Soo Donnelly Sodium [Moles/Vol] 138 mmol/L Normal 136-145 [facility] Comment on above: Performed By: #### U LG, CRP #### [facility] [address] [address] [address] Soo Donnelly Urea nitrogen [Mass/Vol] 16.0 mg/dL Normal 7.0-18.0 [facility] Comment on above: Performed By: #### U LG, CRP #### [facility] [address] [address] [address] Soo Donnelly Urea nitrogen/Creatinine [Mass ratio] 20.8 mg/mg Normal [facility] Comment on above: Performed By: #### U LG, CRP #### [facility] [address] [address] [address] Soo Donnelly TSHon 07-19-2022 TSH 3.262 uIU/mL Normal 0.358-3.740 [facility] Comment on above: Performed By: #### U LG, CRP #### [facility] [address] [address] [address] Soo Donnelly CBC AUTO DIFFon 05-18-2022 BASO # 0.0 103/ul Normal 0.0-0.1 [facility] Comment on above: Performed By: #### U LG, CRP #### [facility] [address] [place] [address] Dr. Soo Donnelly Basophils/100 WBC (Bld) 0.2 % Normal 0.2-2.0 [facility] Comment on above: Performed By: #### U LG, CRP #### [facility] [address] [place] [address] Dr. Soo Donnelly EO # 0.0 103/ul Normal 0.0-0.7 [facility] Comment on above: Performed By: #### U LG, CRP #### [facility] [address] [place] [address] Dr. Soo Donnelly Eosinophils/100 WBC (Bld) 0.2 % Critically low 0.9-7.0 [facility] Comment on above: Performed By: #### U LG, CRP #### [facility] [address] [place] [address] Dr. Soo Donnelly Erythrocyte distribution width (RBC) [Ratio] 12.8 % Normal 11.0-15.0 [facility] Comment on above: Performed By: #### U LG, CRP #### [facility] [address] [place] [address] Dr. Soo Donnelly Hematocrit (Bld) [Volume fraction] 35.7 % Critically low 36.0-48.0 [facility] Comment on above: Performed By: #### U LG, CRP #### [facility] [address] [place] [address] Dr. Soo Donnelly Hemoglobin (Bld) [Mass/Vol] 11.5 g/dL Critically low 12.0-16.0 [facility] Comment on above: Performed By: #### U LG, CRP #### [facility] [address] [place] [address] Dr. Soo Donnelly IG # 0.07 10e3/ul Critically high 0.00-0.03 [facility] Comment on above: Performed By: #### U LG, CRP #### [facility] [address] [address] [address] Soo Donnelly IG % 0.5 % Normal 0.0-0.5 [facility] Comment on above: Performed By: #### U LG, CRP #### [facility] [address] [address] [address] Soo Donnelly LYMPH # 4.1 103/ul Critically high 1.2-3.8 [facility] Comment on above: Performed By: #### U LG, CRP #### [facility] [address] [address] [address] Soo Donnelly Lymphocytes/100 WBC (Bld) 28.3 % Normal 20.5-60.0 [facility] Comment on above: Performed By: #### U LG, CRP #### [facility] [address] [address] [address] Soo Donnelly MANUAL DIFF REQ NO Normal [facility] Comment on above: Performed By: #### U LG, CRP #### [facility] [address] [address] [address] Soo Donnelly MCH (RBC) [Entitic mass] 31.7 pg Normal 26.7-34.0 [facility] Comment on above: Performed By: #### U LG, CRP #### [facility] [address] [address] [address] Soo Donnelly MCHC (RBC) [Mass/Vol] 32.2 g/dL Normal 29.9-35.2 [facility] Comment on above: Performed By: #### U LG, CRP #### [facility] [address] [address] [address] Soo Donnelly MCV (RBC) [Entitic vol] 98.3 fL Normal 81.0-99.0 [facility] Comment on above: Performed By: #### U LG, CRP #### [facility] [address] [address] [address] Soo Donnelly MONO # 0.8 103/ul Normal 0.3-0.8 [facility] Comment on above: Performed By: #### U LG, CRP #### [facility] [address] [address] [address] Soo Donnelly Monocytes/100 WBC (Bld) 5.6 % Normal 1.7-12.0 [facility] Comment on above: Performed By: #### U LG, CRP #### [facility] [address] [address] [address] Soo Donnelly NEUT # 9.4 103/ul Critically high 1.4-6.5 [facility] Comment on above: Performed By: #### U LG, CRP #### [facility] [address] [address] [address] Soo Donnelly Neutrophils/100 WBC (Bld) 65.2 % Normal 43.0-75.0 [facility] Comment on above: Performed By: #### U LG, CRP #### [facility] [address] [place] [address] Dr. Soo Donnelly Platelet mean volume (Bld) [Entitic vol] 10.8 fL Normal 9.5-13.5 [facility] Comment on above: Performed By: #### U LG, CRP #### [facility] [address] [address] [address] Soo Donnelly PLT 191 103/ul Normal 150-450 [facility] Comment on above: Performed By: #### U LG, CRP #### [facility] [address] [place] [address] Dr. Soo Donnelly RBC 3.63 106/ul Critically low 4.20-5.40 [facility] Comment on above: Performed By: #### U LG, CRP #### [facility] [address] [address] [address] Soo Donnelyl WBC 14.4 103/ul Critically high 4.0-11.0 [facility] Comment on above: Performed By: #### U LG, CRP #### [facility] [address] [place] [address] Dr. Soo Burdick 05-17-2022 Urea nitrogen [Mass/Vol] 8.0 mg/dL Normal 7.0-18.0 [facility] Comment on above: Performed By: #### B UN, CREA #### [facility] [address] [place] [address] Dr. Soo Donnelly CBC AUTO DIFFon 05-17-2022 BASO # 0.0 103/ul Normal 0.0-0.1 [facility] Comment on above: Performed By: #### U LG, CRP #### [facility] [address] [place] [address] Dr. Soo Donnelly Basophils/100 WBC (Bld) 0.1 % Critically low 0.2-2.0 [facility] Comment on above: Performed By: #### U LG, CRP #### [facility] [address] [place] [address] Dr. Soo Donnelly EO # 0.0 103/ul Normal 0.0-0.7 [facility] Comment on above: Performed By: #### U LG, CRP #### [facility] [address] [place] [address] Dr. Soo Donnelly Eosinophils/100 WBC (Bld) 0.0 % Critically low 0.9-7.0 [facility] Comment on above: Performed By: #### U LG, CRP #### [facility] [address] [place] [address] Dr. Soo Donnelly Erythrocyte distribution width (RBC) [Ratio] 12.5 % Normal 11.0-15.0 [facility] Comment on above: Performed By: #### U LG, CRP #### [facility] [address] [place] [address] Dr. Soo Donnelly Hematocrit (Bld) [Volume fraction] 38.5 % Normal 36.0-48.0 [facility] Comment on above: Performed By: #### U GL, CRP #### [facility] [address] [place] [address] Dr. Soo Donnelly Hemoglobin (Bld) [Mass/Vol] 13.0 g/dL Normal 12.0-16.0 [facility] Comment on above: Performed By: #### U LG, CRP #### [facility] [address] [place] [address] Dr. Soo Donnelly IG # 0.16 10e3/ul Critically high 0.00-0.03 [facility] Comment on above: Performed By: #### U LG, CRP #### [facility] [address] [address] [address] Soo Donnelly IG % 0.7 % Critically high 0.0-0.5 [facility] Comment on above: Performed By: #### U LG, CRP #### [facility] [address] [address] [address] Soo Donnlely LYMPH # 3.0 103/ul Normal 1.2-3.8 [facility] Comment on above: Performed By: #### U LG, CRP #### [facility] [address] [place] [address] Dr. Soo Donnelly Lymphocytes/100 WBC (Bld) 12.2 % Critically low 20.5-60.0 [facility] Comment on above: Performed By: #### U LG, CRP #### [facility] [address] [place] [address] Dr. Soo Donnelly MANUAL DIFF REQ NO Normal [facility] Comment on above: Performed By: #### U LG, CRP #### [facility] [address] [place] [address] Dr. Soo Donnelly MCH (RBC) [Entitic mass] 32.4 pg Normal 26.7-34.0 [facility] Comment on above: Performed By: #### U LG, CRP #### [facility] [address] [address] [address] Soo Donnelly MCHC (RBC) [Mass/Vol] 33.8 g/dL Normal 29.9-35.2 [facility] Comment on above: Performed By: #### U LG, CRP #### [facility] [address] [place] [address] Dr. Soo Donnelly MCV (RBC) [Entitic vol] 96.0 fL Normal 81.0-99.0 [facility] Comment on above: Performed By: #### U LG, CRP #### [facility] [address] [place] [address] Dr. Soo Donnelly MONO # 1.3 103/ul Critically high 0.3-0.8 [facility] Comment on above: Performed By: #### U LG, CRP #### [facility] [address] [address] [address] Soo Donnelly Monocytes/100 WBC (Bld) 5.4 % Normal 1.7-12.0 [facility] Comment on above: Performed By: #### U LG, CRP #### [facility] [address] [address] [address] Soo Donnelly NEUT # 19.8 103/ul Critically high 1.4-6.5 [facility] Comment on above: Performed By: #### U LG, CRP #### [facility] [address] [place] [address] Dr. Soo Donnelly Neutrophils/100 WBC (Bld) 81.6 % Critically high 43.0-75.0 [facility] Comment on above: Performed By: #### U LG, CRP #### [facility] [address] [place] [address] Dr. Soo Donnelly Platelet mean volume (Bld) [Entitic vol] 10.5 fL Normal 9.5-13.5 [facility] Comment on above: Performed By: #### U LG, CRP #### [facility] [address] [place] [address] Dr. Soo Donnelly PLT 253 103/ul Normal 150-450 [facility] Comment on above: Performed By: #### U LG, CRP #### [facility] [address] [address] [address] Soo Donnelly RBC 4.01 106/ul Critically low 4.20-5.40 [facility] Comment on above: Performed By: #### U LG, CRP #### [facility] [address] [address] [address] Soo Donnelly WBC 24.3 103/ul Critically high 4.0-11.0 [facility] Comment on above: Performed By: #### U LG, CRP #### [facility] [address] [address] [address] Soo Donnelly BASO # 0.0 103/ul Normal 0.0-0.1 [facility] Comment on above: Performed By: #### U LG, CRP #### [facility] [address] [address] [address] Soo Donnelly Basophils/100 WBC (Bld) 0.1 % Critically low 0.2-2.0 [facility] Comment on above: Performed By: #### U LG, CRP #### [facility] [address] [place] [address] Dr. Soo Donnelly EO # 0.0 103/ul Normal 0.0-0.7 [facility] Comment on above: Performed By: #### U LG, CRP #### [facility] [address] [place] [address] Dr. Soo Donnelly Eosinophils/100 WBC (Bld) 0.0 % Critically low 0.9-7.0 [facility] Comment on above: Performed By: #### U LG, CRP #### [facility] [address] [place] [address] Dr. Soo Donnelly Erythrocyte distribution width (RBC) [Ratio] 12.3 % Normal 11.0-15.0 [facility] Comment on above: Performed By: #### U LG, CRP #### [facility] [address] [place] [address] Dr. Soo Donnelly Hematocrit (Bld) [Volume fraction] 41.2 % Normal 36.0-48.0 [facility] Comment on above: Performed By: #### U LG, CRP #### [facility] [address] [place] [address] Dr. Soo Donnelly Hemoglobin (Bld) [Mass/Vol] 13.5 g/dL Normal 12.0-16.0 [facility] Comment on above: Performed By: #### U LG, CRP #### [facility] [address] [address] [address] Soo Donnelly IG # 0.11 10e3/ul Critically high 0.00-0.03 [facility] Comment on above: Performed By: #### U LG, CRP #### [facility] [address] [address] [address] Soo Donnelly IG % 0.5 % Normal 0.0-0.5 [facility] Comment on above: Performed By: #### U LG, CRP #### [facility] [address] [address] [address] Soo Donnelly LYMPH # 1.6 103/ul Normal 1.2-3.8 [facility] Comment on above: Performed By: #### U LG, CRP #### [facility] [address] [address] [address] Soo Donnelly Lymphocytes/100 WBC (Bld) 7.8 % Critically low 20.5-60.0 [facility] Comment on above: Performed By: #### U LG, CRP #### [facility] [address] [address] [address] Soo Donnelly MANUAL DIFF REQ NO Normal [facility] Comment on above: Performed By: #### U LG, CRP #### [facility] [address] [address] [address] Soo Donnelly MCH (RBC) [Entitic mass] 31.8 pg Normal 26.7-34.0 [facility] Comment on above: Performed By: #### U LG, CRP #### [facility] [address] [address] [address] Soo Donnelly MCHC (RBC) [Mass/Vol] 32.8 g/dL Normal 29.9-35.2 [facility] Comment on above: Performed By: #### U LG, CRP #### [facility] [address] [address] [address] Soo Donnelly MCV (RBC) [Entitic vol] 96.9 fL Normal 81.0-99.0 [facility] Comment on above: Performed By: #### U LG, CRP #### [facility] [address] [address] [address] Soo Donnelly MONO # 0.4 103/ul Normal 0.3-0.8 [facility] Comment on above: Performed By: #### U LG, CRP #### [facility] [address] [address] [address] Soo Donnelly Monocytes/100 WBC (Bld) 2.0 % Normal 1.7-12.0 [facility] Comment on above: Performed By: #### U LG, CRP #### [facility] [address] [address] [address] Soo Donnelly NEUT # 18.1 103/ul Critically high 1.4-6.5 [facility] Comment on above: Performed By: #### U LG, CRP #### [facility] [address] [place] [address] Dr. Soo Donnelly Neutrophils/100 WBC (Bld) 89.6 % Critically high 43.0-75.0 [facility] Comment on above: Performed By: #### U LG, CRP #### [facility] [address] [place] [address] Dr. Soo Donnelly Platelet mean volume (Bld) [Entitic vol] 11.0 fL Normal 9.5-13.5 [facility] Comment on above: Performed By: #### U LG, CRP #### [facility] [address] [place] [address] Dr. Soo Donnelly PLT 223 103/ul Normal 150-450 [facility] Comment on above: Performed By: #### U LG, CRP #### [facility] [address] [place] [address] Dr. Soo Donnelly RBC 4.25 106/ul Normal 4.20-5.40 [facility] Comment on above: Performed By: #### U LG, CRP #### [facility] [address] [place] [address] Dr. Soo Donnelly WBC 20.2 103/ul Critically high 4.0-11.0 [facility] Comment on above: Performed By: #### U LG, CRP #### [facility] [address] [place] [address] Dr. Soo Donnelly CREATININEon 05-17-2022 Creatinine [Mass/Vol] 0.97 mg/dL Normal 0.55-1.02 [facility] Comment on above: Performed By: #### B UN, CREA #### [facility] [address], [place] [address] Dr. Soo Donnelly EGFR-AF JAPANESE >60 Normal >=60 [facility] Comment on above: Performed By: #### B UN, CREA #### [facility] [address], [place] [address] Dr. Soo Donnelly EGFR-NON AF JAPANESE >60 Normal >=60 [facility] Comment on above: Performed By: #### B UN, CREA #### [facility] [address], [place] [address] Dr. Soo Donnelly CTA CHEST WO W [...] LUZ ELENA SAUCEDA Date: 2022-05-17 16:40 Normal [facility] XR CHEST 2 Von 05-17-2022 XR [...] SAMI JONES Date: 2022-05-17 16:10 Normal [facility] CBC AUTO DIFFon 05-16-2022 BASO # 0.1 103/ul Normal 0.0-0.1 [facility] Comment on above: Performed By: #### B UN, CREA #### [facility] [address] [place] [address] Dr. Soo Donnelly Basophils/100 WBC (Bld) 0.5 % Normal 0.2-2.0 [facility] Comment on above: Performed By: #### B UN, CREA #### [facility] [address] [place] [address] Dr. Soo Donnelly EO # 0.1 103/ul Normal 0.0-0.7 [facility] Comment on above: Performed By: #### B UN, CREA #### [facility] [address] [place] [address] Dr. Soo Donnelly Eosinophils/100 WBC (Bld) 1.0 % Normal 0.9-7.0 [facility] Comment on above: Performed By: #### B UN, CREA #### [facility] [address] [place] [address] Dr. Soo Donnelly Erythrocyte distribution width (RBC) [Ratio] 12.2 % Normal 11.0-15.0 [facility] Comment on above: Performed By: #### B UN, CREA #### [facility] [address] [place] [address] Dr. Soo Donnelly Hematocrit (Bld) [Volume fraction] 41.2 % Normal 36.0-48.0 [facility] Comment on above: Performed By: #### B UN, CREA #### [facility] [address] [place] [address] Dr. Soo Donnelly Hemoglobin (Bld) [Mass/Vol] 13.9 g/dL Normal 12.0-16.0 [facility] Comment on above: Performed By: #### B UN, CREA #### [facility] [address] [place] [address] Dr. Soo Donnelly IG # 0.04 10e3/ul Critically high 0.00-0.03 [facility] Comment on above: Performed By: #### B UN, CREA #### [facility] [address] [place] [address] Dr. Soo Donnelly IG % 0.4 % Normal 0.0-0.5 [facility] Comment on above: Performed By: #### B UN, CREA #### [facility] [address] [place] [address] Dr. Soo Donnelly LYMPH # 3.5 103/ul Normal 1.2-3.8 [facility] Comment on above: Performed By: #### B UN, CREA #### [facility] [address] [place] [address] Dr. Soo Donnelly Lymphocytes/100 WBC (Bld) 35.3 % Normal 20.5-60.0 [facility] Comment on above: Performed By: #### B UN, CREA #### [facility] [address] [place] [address] Dr. Soo Donnelly MANUAL DIFF REQ NO Normal [facility] Comment on above: Performed By: #### B UN, CREA #### [facility] [address] [place] [address] Dr. Soo Donnelly MCH (RBC) [Entitic mass] 31.7 pg Normal 26.7-34.0 [facility] Comment on above: Performed By: #### B UN, CREA #### [facility] [address] [place] [address] Dr. Soo Donnelly MCHC (RBC) [Mass/Vol] 33.7 g/dL Normal 29.9-35.2 [facility] Comment on above: Performed By: #### B UN, CREA #### [facility] [address] [place] [address] Dr. Soo Donnelly MCV (RBC) [Entitic vol] 94.1 fL Normal 81.0-99.0 [facility] Comment on above: Performed By: #### B UN, CREA #### [facility] [address] [place] [address] Dr. Soo Donnelly MONO # 0.5 103/ul Normal 0.3-0.8 [facility] Comment on above: Performed By: #### B UN, CREA #### [facility] [address] [place] [address] Dr. Soo Donnelly Monocytes/100 WBC (Bld) 5.4 % Normal 1.7-12.0 [facility] Comment on above: Performed By: #### B UN, CREA #### [facility] [address] [place] [address] Dr. Soo Donnelly NEUT # 5.6 103/ul Normal 1.4-6.5 [facility] Comment on above: Performed By: #### B UN, CREA #### [facility] [address] [place] [address] Dr. Soo Donnelly Neutrophils/100 WBC (Bld) 57.4 % Normal 43.0-75.0 [facility] Comment on above: Performed By: #### B UN, CREA #### [facility] [address] [place] [address] Dr. Soo Donnelly Platelet mean volume (Bld) [Entitic vol] 10.3 fL Normal 9.5-13.5 [facility] Comment on above: Performed By: #### B UN, CREA #### [facility] [address] [place] [address] Dr. Soo Donnelly PLT 235 103/ul Normal 150-450 [facility] Comment on above: Performed By: #### B UN, CREA #### [facility] [address] [place] [address] Dr. Soo Donnelly RBC 4.38 106/ul Normal 4.20-5.40 [facility] Comment on above: Performed By: #### B UN, CREA #### [facility] [address] [address] [address] Soo Donnelly WBC 9.8 103/ul Normal 4.0-11.0 [facility] Comment on above: Performed By: #### B UN, CREA #### [facility] [address] [address] [address] Soo Donnelly PREG QUANT HCGon 05-16-2022 HCG QUANT <1 Normal [facility] Comment on above: Performed By: #### U LG, CRP #### [facility] [address] [address] [address] Soo Donnelly HCG RANGE SEE BELOW Normal [facility] Comment on above: Result Comment: 5-50 0-1 WEEK 40-300 1-2 WEEKS 100-1,000 2-3 WEEKS 500-6,000 3-4 WEEKS 5,000-200,000 1-2 MONTHS 10,000-100,000 2-3 MONTHS 3,000-50,000 2ND TRIMESTER 1,000-50,000 3RD TRIMESTER Performed By: #### U LG, CRP #### [facility] [address] [place] [address] Dr. Soo Donnelly Covid-19 [facility]01 SARS-CoV-2 (COVID-19) RNA [place]OLA+probe Ql (Unsp spec) Not detected Normal NOT DETECTED [facility] Comment on above: Result Comment: This test is not yet approved or cleared by the [place] FDA. When there are no FDA-approved or cleared tests available, and other criteria are met, FDA can make tests available under an emergency access mechanism called an Emergency Use Authorization (EUA). The EUA for this test is supported by the Insurance Actuary of Health and Human Service's (HHS's) declaration [...] consistent with SARS-CoV-2. Performed By: #### C VDTB #### [facility] [address] [place] [address] Dr. Soo Donnelly TYPE AND SCREENon 05-13-2022 TYPE AND SCREEN Negative Normal [facility] Comment on above: Performed By: #### B UN, CREA #### [facility] [address] [place] [address] Dr. Soo Donnelly PAP ACOG PANEL 2: 30 to 65on 05-07-2022 . . Normal [facility] Comment on above: Result Comment: Perf ormed at: WB Performed By: #### [id number] #### [facility] [address] [place] [address] Dr. Soo Donnelly Age Gdln ACOG Testing -[address] [facility] Comment on above: Performed By: #### [id number] #### [facility] [address] [place] [address] Dr. Soo Donnelly DIAGNOSIS: Comment Normal [facility] Comment on above: Result Comment: NEGA TIVE FOR INTRAEPITHELIAL LESION OR MALIGNANCY. Performed at: WB Performed By: #### [id number] #### [facility] [address] [place] [address] Dr. Soo Donnelly HPV Aptima Negative Normal Negative [facility] Comment on above: Result Comment: This nucleic acid amplification test detects fourteen high-risk HPV types (16,18,31,33,35,39,45,51,52,56,58,59,66,68) without differentiation. Performed at: =G Performed By: #### [id number] #### [facility] [address] [place] [address] Dr. Soo Donnelly Methodology: Comment Normal [facility] Comment on above: Result Comment: This liquid based ThinPrep(R) pap test was screened with the use of an image guided system. Performed at: WB Performed By: #### [id number] #### [facility] [address] [place] [address] Dr. Soo Donnelly Note: Comment Normal [facility] Comment on above: Result Comment: The Pap smear is a screening test designed to aid in the detection of premalignant and malignant conditions of the uterine cervix. It is not a diagnostic procedure and should not be used as the sole means of detecting cervical cancer. Both false-positive and false-negative reports do occur. . Performed at: WB Performed By: #### [id number] #### [facility] [address] [place] [address] Dr. Soo Donnelly Performed by: Comment Normal [facility] Comment on above: Result Comment: Angel Rod, [employer] Technician (ASCP) Performed at: WB Performed By: #### [id number] #### [facility] [address] [place] [address] Dr. Soo Donnelly Specimen adequacy: Comment Normal [facility] Comment on above: Result Comment: Sati sfactory for evaluation. Endocervical and/or squamous metaplastic cells (endocervical component) are present. Performed at: WB Performed By: #### [id number] #### [facility] [address] [place] [address] Dr. Soo Donnelly ROSS by IFAon 02-21-2022 Antinuclear Antibodies, IFA Negative Normal [facility] Comment on above: Result Comment: Nega tive <1:80 Borderline 1:80 Positive >1:80 ICAP nomenclature: AC-0 For more information about Hep-2 cell patterns use ANApatterns.org, the official website for the International Consensus on Antinuclear Antibody (ROSS) Patterns (ICAP). Performed By: #### U LG, CRP #### [facility] [address] [place] [address] Dr. Soo Donnelly ROSS DIRECTon 02-20-2022 ROSS Direct Negative Normal Negative [facility] Comment on above: Performed By: #### A NAD #### [facility] [address] [place] [address] Dr. Soo Donnelly ANTISTREPTOLYSIN O AB (ASO)o n 02-20-2022 Antistreptolysin O Ab 115.3 IU/mL Normal 0.0-200.0 [facility] Comment on above: Performed By: #### B UN, CREA #### [facility] [address] [address] [address] Soo Donnelly C3 and C4 COMPLEMENTon 02-20 Complement C3, Serum 137 mg/dL Normal 82-167 [facility] Comment on above: Performed By: #### U LG, CRP #### [facility] [address] [address] [address] Soo Donnelly Complement C4, Serum 23 mg/dL Normal 12-38 [facility] Comment on above: Performed By: #### U LG, CRP #### [facility] [address] [address] [address] Soo Donnelly SLE PROFILE Aon 02-20-2022 Anti-DNA (DS) Ab Qn <1 Normal 0-9 [facility] Comment on above: Result Comment: Nega tive <5 Equivocal 5 - 9 Positive >9 Performed By: #### S YARI #### [facility] [address] [place] [address] Dr. Soo Donnelly Antichromatin Antibodies <0.2 Normal 0.0-0.9 [facility] Comment on above: Performed By: #### S YARI #### [facility] [address] [place] [address] Dr. Soo Donnelly RA Latex Turbid. <10.0 Normal <14.0 [facility] Comment on above: Performed By: #### S YARI #### [facility] [address] [address] [address] Soo Donnelly [employer] Antibodies <0.2 Normal 0.0-0.9 [facility] Comment on above: Performed By: #### S YARI #### [facility] [address] [address] [address] Soo Donnelly Sjogren's Anti-SS-A <0.2 Normal 0.0-0.9 [facility] Comment on above: Performed By: #### S YARI #### [facility] [address] [place] [address] Dr. Soo Donnelly Sjogren's Anti-SS-B <0.2 Normal 0.0-0.9 [facility] Comment on above: Performed By: #### S YARI #### [facility] [address] [address] [address] Soo Donnelly Spann Antibodies <0.2 Normal 0.0-0.9 [facility] Comment on above: Performed By: #### S YARI #### [facility] [address] [place] [address] Dr. Soo Donnelly CRPon 02-19-2022 CRP [Mass/Vol] mg/L Normal <=1.0 [facility] Comment on above: Performed By: #### U LG, CRP #### [facility] [address] [place] [address] Dr. Soo Donnelly URIC ACID SERUMon 02-19-2022 Urate [Mass/Vol] 4.7 mg/dL Normal 2.5-6.2 [facility] Comment on above: Performed By: #### U LG, CRP #### [facility] [address] [place] [address] Dr. Soo Donnelly XR CSPINE MIN 4 [...] ABIGAIL SHEEHAN Date: 2022-02-19 16:33 Normal [facility] XR HAND DEAN MIN 3Von 022 [...] ABIGAIL SHEEHAN Date: 2022-02-19 16:28 Normal [facility] ASYMPTOMATIC COVID-19 ANTIGE Non 12-04-2021 EUA Statement SEE BELOW Normal [facility] Comment on above: Result Comment: This [...] sooner. Performed By: #### C VDAGA #### [facility] [address] [place] [address] Dr. Soo Donnelly SARS-CoV-2 (COVID-19) RNA NOLA+probe Ql (Unsp spec) Negative Normal NEGATIVE [facility] Comment on above: Result Comment: Nega tive results are presumptive. They do not preclude infection and should not be used as the sole basis for treatment decisions. Additional confirmatory testing by a molecular method should be considered. Performed By: #### C VDAGA #### [facility] [address] [place] [address] Dr. Soo Donnelly Covid-19 PCR [facility]on SARS-CoV-2 (COVID-19) RNA NOLA+probe Ql (Unsp spec) Not detected Normal NOT DETECTED [facility] Comment on above: Result Comment: This test is not yet approved or cleared by the [place] FDA. When there are no FDA-approved or cleared tests available, and other criteria are met, FDA can make tests available under an emergency access mechanism called an Emergency Use Authorization (EUA). The EUA for this test is supported by the [place] of Health and Human Service's (HHS's) declaration [...] Performed By: #### U LG, CRP #### [facility] [address] [place] [address] Dr. Soo Donnelly Vital Signs Date Time Vital Sign Value Performing Clinician Facility 11-01-2022 15:19-0500 Blood Pressure Location [facility] 11-01-2022 15:19-0500 Diastolic blood pressure 80 mm[Hg] [facility] 11-01-2022 15:19-0500 Heart rate 72 /min [facility] 11-01-2022 15:19-0500 Respiratory rate 16 /min [facility] 11-01-2022 15:19-0500 Systolic blood pressure 118 mm[Hg] [facility] 10-01-2022 16:30-0400 Body height 170.18 cm Clarice Hull Other [facility] Other 10-01-2022 16:30-0400 Body mass index (BMI) [Ratio] 32.84 kg/m2 Clarice Hull Other [facility] Other 10-01-2022 16:30-0400 Body weight 95.12 kg Clarice Scally Other [facility] Other 10-01-2022 16:30-0400 Diastolic blood pressure 82 mm[Hg] Clarice Scally Other [facility] Other 10-01-2022 16:30-0400 Respiratory rate 18 /min Clarice Scally Other [facility] Other 10-01-2022 16:30-0400 SaO2% (BldA) [Mass fraction] 97 % Clarice Scally Other [facility] Other 10-01-2022 16:30-0400 Systolic blood pressure 116 mm[Hg] Clarice Scally Other [facility] Other 08-28-2022 14:30-0400 Body height 170.18 cm Nahid Mccoy Other [facility] Other 08-28-2022 14:30-0400 Body mass index (BMI) [Ratio] 34.55 kg/m2 Nahid Mccoy Other [facility] Other 08-28-2022 14:30-0400 Body weight 100.06 kg Nahid Mccoy Other [facility] Other 08-28-2022 14:30-0400 Diastolic blood pressure 82 mm[Hg] Nahid Mccoy Other [facility] Other 08-28-2022 14:30-0400 Respiratory rate 18 /min Nahid Mccoy Other [facility] Other 08-28-2022 14:30-0400 SaO2% (BldA) [Mass fraction] 97 % Nahid Mccoy Other [facility] Other 08-28-2022 14:30-0400 Systolic blood pressure 121 mm[Hg] Nahid Mccoy Other [facility] Other Encounters Encounter Date Encounter Type Care Provider Facility Start: 09-09-2024 End: 09-09-2024 ambulatory CAROL WEBB Not Available Start: 08-30-2024 End: 08-30-2024 Departed Referred [facility] Work Phone: Start: 08-30-2024 End: 08-30-2024 ambulatory NON STAFF [facility] Work Phone: Start: 04-05-2024 End: 04-05-2024 ambulatory AURA MURILLO Not Available Start: 03-15-2024 End: 03-15-2024 Emergency department patient visit Nicola Art [place] Facility:[facility] Start: 10-22-2023 End: 10-22-2023 ambulatory JESSICA LAURA Not Available Start: 08-15-2023 End: 08-15-2023 ambulatory NON STAFF [facility] Work Phone: Start: 08-15-2023 End: 08-15-2023 Departed Referred [facility] Work Phone: Start: 12-05-[address] SAMI MARINELLI Facility :[facility] Start: 11-09-2022 End: 11-10-[address] DOCTOR STEIN Facility:[facility] Start: 11-01-2022 End: 11-02-2022 ambulatory Nicola BUCHANAN Facility:[facility] Start: 11-01-2022 End: 11-01-2022 Patient encounter procedure Nicola BUCHANAN General Surgery [facility] Start: 10-29-2022 End: 10-29-2022 ambulatory Clarice Hull Other [facility] Other Start: 10-29-2022 Telephone encounter Clarice [facility]is [facility] Start: 10-14-2022 End: 10-14-2022 ambulatory Clarice Hull Other [facility] Other Start: 10-14-2022 Telephone encounter Clarice Aldomegan Rocha [facility] Start: 10-04-2022 ambulatory Nicola CANDELARIOHamida Facility:[facility] Start: 10-01-2022 (FCCCWMNF/U) Weight Management f/u Clarice Hull [facility] Start: 10-01-2022 End: 10-02-[address] LUZ ELENA SAUCEDA [facility] Other Start: 09-19-2022 End: 09-19-2022 ambulatory Nahid Mccoy Other [facility] Other Start: 09-19-2022 Telephone encounter Nahid [facility] Start: 09-18-2022 End: 09-18-[address] LUZ ELENA SAUCEDA Facility:[facility] Start: 09-12-2022 End: 09-13-[address] ABIGAIL SHEEHAN Facility:[facility] Start: 08-28-2022 End: 08-28-2022 ambulatory Nahid Mccoy Other [facility] Other Start: 08-28-2022 Nutrition therapy Nahid [facility] Start: 07-22-2022 Encounter for genera l adult medical examination without abnormal findings DR SAMI MARINELLI [facility] Start: 07-19-2022 End: 07-20-[address] [...] for preprocedural laboratory examination DR AURA MURILLO [facility] Start: 05-13-2022 End: 05-14-[address] AURA MURILLO Facility:[facility] Start: 05-13-2022 End: 05-14-2022 Encounter for preprocedural laboratory examination DR AURA MURILLO Facility:[facility] Start: 05-11-2022 Encounter for preprocedural cardiovascular examination DR AURA MURILLO [facility] Start: 05-08-2022 End: 05-09-[address] [...] vaccine, unspecified formulation Nicola BUCHANAN General Surgery Michael Payers Date Payer Category Payer Self-pay [id number] 1975 Unknown [id number] 2.16.8 [id number] 1975 Unknown [id number] 2.16.84 0.1.509968.3.579.2.593 1976 Unknown [id number] 2.16.84 0.1.559099.3.579.2.593 1976 Unknown [id number] 2.16.84 0.1.427849.3.579.2.593 1976 Unknown [id number] 2.16.84 0.1.131169.3.579.2.593 1976 Unknown [id number] 2.16.84 0.1.271907.3.579.2.593 1976 Unknown [id number] 2.16.84 0.1.358149.3.579.2.593 1976 Unknown [id number] 2.16.84 0.1.573836.3.579.2.593 1976 Unknown [id number] 2.16.84 0.1.087318.3.579.2.593 1976 Unknown [id number] 2.16.84 0.1.763006.3.579.2.593 1976 Unknown [id number] 2.16.84 0.1.347624.3.579.2.593 1976 Unknown [id number] 2.16.84 0.1.910789.3.579.2.593 1976 Unknown [id number] 2.16.84 0.1.916159.3.579.2.593 1976 Unknown [id number] 2.16.84 0.1.585690.3.579.2.593 1976 Unknown [id number] 2.16.84 0.1.910482.3.579.2.593 1976 Unknown [id number] 2.16.8 40.1.079863.3.579.2.718 1976 Unknown [id number] 2.16.84 0.1.398721.3.579.2.1259 1976 Unknown [id number] 2.16.84 0.1.797573.3.579.2.1259 1976 Unknown [id number] 2.16.840 .1.789855.3.579.2.1259 1959 Self-pay [id number] 1958 Unknown [id number] . [id number] Unknown [id number] 2.16.8 40.1.754442.3.579.2.531 Social History Date Type Detail Facility Unknown if ever smoked [facility] Other Sex Assigned At [facility] Start: 11-01-2022 Tobacco smoking status Ex-smoker (finding) General Surgery Michael Tobacco smoking status Former smokeless tobacco user, quit more than 30 days ago General Surgery [place] Start: 1975 Sex Assigned At [facility] Functional Status Date Assessment Result Facility 11-01-2022 Functional Status N/A [facility] Clinical Notes 05-16-2022 to 03-15-2024 Note [...] Keep all follow-up visits. Medicines ? Take ltlv-akw-jbkzpae and prescription medicines only as told by [...] work harder to (more content not included)... [facility] 11-25-2022 Note Chief Complaint consultation for [...] - Denies A (more content not included)... [facility] Comment on above: Result Comment: Elec tronically [...] was counseling done by myself, Ann ANGLIN. [facility] Other 09-28-2022 Evaluation note* Encounter Date Diagnosis Assessment Notes Treatment Notes Treatment Clinical Notes Aug, Abnormal weight gain (ICD-10 - R63.5) Aug, Prediabetes (ICD-10 - R73.03) Aug, Mixed hyperlipidemia (ICD-10 - E78.2) Aug, Hypertension (ICD-10 - I10) Aug, Obstructive sleep apnea (ICD-10 - G47.33) Aug, GERD (gastroesophageal reflux disease) (ICD-10 - K21.9) Aug, Metabolic syndrome X (ICD-10 - E88.81) [facility] Other 06-16-2022 NoteDISCHARGE SUMMARY DISCHARGE DATE: 05/18/2022 [...] and no longer on narcotics. [facility] Signed and Approved by: DR AURA MURILLO . 05/20/2022 07:51:00[facility] [id number] NoteThe [place], [place] NAME: HORACIO PUGH DATE OF : MEDICAL REC#: [id number] MANAGER ADVERTISING: [address] ADMIT DATE: 05/16/2022 11:05:00 LINOTYPE OPERATOR DATE: 05/17/2022 21:20 DICTATING PHYSICIAN: AURA MURILLO DICTATION DATE: 05/16/2022 15:02 OP Note OPERATION DATE: 05/16/2022 PROCEDURE: Supracervical hysterectomy with left salpingo-oophorectomy with right salpingectomy and right ovarian cystotomy of approximately 3 cm cyst. SURGEON: Aura Murillo D.O. LAUNDRY PRESSER: SHUKRI Balion URINE OUTPUT: Yellow and clear. SPECIMEN: Uterus, [...] Murillo DO on 05/23/2022 10:30 AM EDT [facility] Signed and Approved by: DR AURA MURILLO . 05/23/2022 [facility] No data available for this section General Surgery Michael Evaluation noteNo InformationNort [place] Other Evaluation noteNo assessment information available [facility] Work Phone: [facility] general Narrative - Reported* Type Description Date [...] History TMJ surgery Hospitalization History see above [facility] Other [facility] general Narrative - Reported* Type Description Date [...] see above Hospitalization History ER-abd . pain [facility] 09/18/22 [facility] Other Hospital Discharge instructions No data available for this section General Surgery [place] Progress note No data available for this section General Surgery Michael Summary Purpose Family History No Family History [...] for Visit Chief Complaint WELLNESS Chief Complaint [facility] labs Additional Source Comments REASON FOR VISIT (unrecogniz ed section and content) initial NDC Ozempic denied 09/19/2022WMN [facility] f/u, pt. request, SEE TE Oral meds, x injectible, initial WMNDS waiting for lab order to be sentDS please callDS Cancelled DM appt Patient Care team informatio n (unrecognized section and content) Team Status: Active Member Role Status Dates NON STAFF Primary Care Provider Active Team Status: Inactive Member Role Status Dates NON STAFF Primary Care Provider Active Dedrick Fuller , DO [facility] Attending Provider Active Team Status: Inactive Member Role Status Dates NON STAFF Primary Care Provider Active Start: August 30, 2024 End: August 30, 2024 Dedrick Fuller - [facility] , DO [facility] Attending Provider Active Start: August 30, 2024 End: August 30, 2024 INFORMATION SOURCE (unrecogn ized section and content) DATE CREATED AUTHOR 11/26/2022 [facility] DATE CREATED AUTHOR AUTHOR'S ORGANIZ ATION 12/03/2022 [facility] DATE CREATED AUTHOR AUTHOR'S ORGANIZ ATION 03/21/2024 [facility] DATE CREATED AUTHOR AUTHOR'S ORGANIZ ATION 08/31/2024 [facility] DATE CREATED AUTHOR AUTHOR'S ORGANIZ ATION 09/12/2024 [facility] EPIC Goals (unrecognized section and [...] BE BASED ON THE PRIMARY CLINICAL RECORDS. [employer] provides no warranty or guarantee of the accuracy or completeness of information in this document.
== END 2024-09-13 16:31 | disposition home or self-care (01) ==
LOC: US 16:30
PROVIDERS: PCP Family Medicine; Visit Provider Family Medicine
DX: R31.9 Hematuria, unspecified (principal); N83.201 Unspecified ovarian cyst, right side
CPT/HCPCS: 76770; 76830; 76856

== ENCOUNTER 2024-09-20 13:59 | Outpatient (OUT) | payer OTHER, SELFPAY ==
--- OUTSIDE RECORDS SUMMARY | 2024-09-20 14:21 | XMS_ITS | CCD ---
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 Name Role Phone Nahid Mccoy Unavailable Clarice [...] Practitioner Unavailab LUZ ELENA Rolle Consulting Unavailable DARAMOLSIENNA Rodrigues Consulting Unavailable READERSAMI Consulting Unavailable LUL, DR [...] Attending Unavailable ROSCOE, DR CHAVARRIA Admitting Unavailable ROSCEO, DR CHAVARRIA Consulting Unavailable LUL, DR GALLARDO Consulting Unavailable LUL, DR GALLARDO Primary Care Unavailable LUL, DR GALLARDO Attending Unavailable LUL, DR GALLARDO Admitting Unavailable LUL, DR GALLARDO Consulting Unavailable JOCELYNNY, DR GALLARDO Primary Care Unavailable HOY, DR [...] HOY, DR GALLARDO Admitting Unavailable WEST, DR ABIGALI Mc Consulting Unavailable HOY, DR GALLARDO Consulting [...] NON STAFF Primary Care Provider Unavailsalome [facility] Attending Provider Alina [facility] Attending Unavailable [facility], Dedrick Majano Admitting Unavailable NON STAFF Primary Care Unavailable JESSICA SANCHEZ Attending Unavailable DELGADO MURILLO Attending Unavailable CAROL WEBB Attending Unavailable EDWIGE MAGAÑA Referring Unavailable Sami Marinelli MD Primary Care Provider [phone] Allergies Allergy Classification Reported Allergen(s) Allergy Type Date of Onset Reaction(s) Facility (7 sources) NITROFURANTOIN, MACROCRYSTALS / Nitrofurantoin, Monohydrate; 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: [nitrofurantoin] Drug Allergy Neck swelling (finding) [facility] (1 source) Albuterol Drug Allergy [facility] Comment on above: NEED TO CUT DOWN ADR ENALIN TO PREVENT SEIZURES (2 sources) Bee/Wasp/Ant venom; 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: [Bee Stings] Allergy to substance Nausea, Swelling [facility] (1 source) PECANS 1 Food allergy [facility] Comment on above: AIRWAY CONSTRICTION (4 sources) Albuterol; 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: [albuterol] Drug Allergy 06-26-20 23 Other [facility] (1 source) Egg; 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: [Eggs] Food allergy (disorder) [facility] (4 sources) Nitrofurantoin; 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: [Macrobid] Drug Allergy 05-02-20 12 [facility] (1 source) PECANS; 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: [PECANS] Food allergy (disorder) [facility] (2 sources) bee venom Drug allergy (disorder) 06-09-20 15 [facility] (2 sources) egg extract Drug Allergy 06-09-20 15 [facility] (2 sources) pecan pollen extract Drug Allergy [facility] (2 sources) tree nut, unspecified Drug allergy (disorder) 06-09-20 15 [facility] (1 source) Nitrofurantoin Drug Allergy 10-01-20 22 [facility] (2 sources) Honey bee venom Allergy to substance 04-05-20 24 [facility] (2 sources) Nitrofurantoin Drug Allergy 05-01-20 18 Swelling [facility] (2 sources) Nitrofurantoin Drug Allergy 04-05-20 24 [facility] (2 sources) Egg-Derived Products Drug Allergy 04-05-20 24 [facility] (2 sources) Other Propensity to adverse reactions 05-13-20 05 [facility] Medications Current Medications Medication Drug Class(es) Dates Sig (Normalized) Sig (Original) ALPRAZolam 0.25 mg oral tablet (9 sources) Benzodiazepine Start: 02-03-2023 take 1 tablet by mouth three times daily as needed ALPRAZolam (Xanax) 0.25 MG tablet Take 0.25 mg by mouth 3 (three) times a day as needed. 02/03/2023 Active Start: 11-17-2014 Xanax 0.25 mg Tab 0.25 mg = 1 tab(s), Oral, PRN as needed for anxiety, Refills(s) 0 Start Date: 11/17/14 Status: Ordered aspirin 81 mg oral tablet (6 sources) Platelet Aggregation Inhibitor, Nonsteroidal Anti-inflammatory Drug take 1 tablet by mouth once daily Aspirin 81 81 MG 1 tablet Orally Once a day Active doxepin hydrochloride 10 mg oral capsule (2 sources) Tricyclic Antidepressant Start: 023 take 1 capsule by mouth at bedtime doxepin (SINEquan) 10 MG capsule Take 10 mg by mouth at bedtime. 06/09/2023 Active fluconazole 150 mg oral tablet (2 sources) Azole Antifungal Start: 024 take 1 tablet by mouth once daily fluconazole (Diflucan) 150 MG tablet Indications: Pelvic pain in female Take 1 tablet (150 mg) by mouth Daily Repeat in 7 days if symptoms persist. 2 tablet 04/05/2024 Active lisinopril 20 mg oral tablet (7 sources) Angiotensin Converting Enzyme Inhibitor Start: take 1 tablet by mouth once daily lisinopril 20 mg Tab 20 mg = 1 tab(s), Oral, Daily, Refills(s) 0 Start Date: 10/30/22 Status: Ordered meloxicam 15 mg oral tablet (9 sources) Nonsteroidal Anti-inflammatory Drug Start: take 1 tablet by mouth in the morning meloxicam (Mobic) 15 MG tablet Take 15 mg by mouth in the morning. 06/14/2023 Active Start: 10-30-2022 take 1 tablet by fernando th once daily meloxicam 15 mg Tab 15 mg = 1 tab(s), Oral, Daily, Refills(s) 0 Start Date: 10/30/22 Status: Ordered metoprolol tartrate 50 mg oral tablet (2 sources) beta-Adrenergic Jeffrey Start: 05-17-2023 take 1 tablet by mouth in the morning metoprolol tartrate (Lopressor) 50 MG tablet Take 50 mg by mouth in the morning and 50 mg before bedtime. 05/17/2023 Active Multivitamin preparation (6 sources) take 1 tablet by mouth once daily Multivitamin - 1 tablet Orally Once a day Active omeprazole 40 mg delayed release oral capsule (9 sources) Proton Pump Inhibitor Start: 10-30-2022 take 1 capsule by mouth twice daily omeprazole 40 mg Cap-DR 40 mg = 1 cap(s), Oral, BID, Refills(s) 0 Start Date: 10/30/22 Status: Ordered take 1 capsule by [facility] every twenty-four hours Omeprazole 40 MG 1 cap(s) p.o. Once a da y Active phentermine hydrochloride 37.5 mg oral tablet (2 sources) Sympathomimetic Amine Anorectic Start: 06-13-2023 take 1 tablet by mouth before mealtime phentermine (Adipex-P) 37.5 MG tablet Take 37.5 mg by mouth in the morning. Take before meals. 06/13/2023 Active QUEtiapine 25 mg oral tablet (7 [...] Subcutaneous weekly for 30 days Aug, Active tiZANidine 4 mg oral tablet (2 sources) Central alpha-2 Adrenergic Agonist Start: 06-13-2023 tiZANidine (Zanaflex) 4 MG tablet Take 8 mg by mouth at bedtime. 06/13/2023 Active Completed/Discontinued Medications Medication Drug Class(es) Dates [...] 2 Chronic Other aftercare (1 source) Other assisted (current) drug therapy; 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: [OTH DETENTION CURRENT DRUG THERAPY] Onset: 2 Episodic Other [...] HX MALIGNANT NEOPLASM OVARY] Onset: 2 Episodic Spondylosis; intervertebral disc disorders; other back problems (2 sources) Neck pain; 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: [Cervicalgia] 09-09-2024 Episodic Substance-related disorders (1 source) Smoker 11-17-2014 [...] MDRD (S/P/Bld) [Vol rate/Area] mL/min/{1.73_m2} Normal [facility] Comment on above: Performed By: #### L IPID, BMP #### [facility] [address] [place] [address] [place] Calcium [Mass/volume] in Ser um or PlasmaOrdered By: Dedrick Fuller on 08-30-2024 Calcium [Mass/Vol] 9.9 mg/dL Normal 8.6-10.[address] [facility] Comment on above: Performed By: #### L IPID, BMP #### [facility] [address] [place] [address] [place] Carbon dioxide, total [Moles /volume] in Serum or PlasmaOrdered By: Dedrick Fuller on 08-30-2024 CO2 [Moles/Vol] 26.6 mmol/L Normal 21.0-31.0 [facility] Comment on above: Performed By: #### L IPID, BMP #### [facility] [address] [place] [address] [place] Chloride [Moles/volume] in S altagracia or PlasmaOrdered By: Dedrick Fuller on 08-30-2024 Chloride [Moles/Vol] 104 mmol/L Normal 98-107 [facility] Comment on above: Performed By: #### L IPID, BMP #### [facility] [address] [place] [id number] [place] Cholesterol [Mass/volume] in Serum or PlasmaOrdered By: Dedrick Fuller on 08-30-2024 Cholesterol [Mass/Vol] 218 mg/dL High 140-200 [facility] Comment on above: Chol less than 200 m g/dl low riskChol 201-239 mg/dl borderline riskChol 240 mg/dl and greater high risk Result Comment: Chol less than 200 mg/dl low risk Chol 201-239 mg/dl borderline risk Chol 240 mg/dl and greater high risk Performed By: #### L IPID, BMP #### [facility] [address] [place] [id number] [place] Cholesterol in LDL Calc [Mas s/Vol]Ordered By: Dedrick Fuller on 08-30-2024 Cholesterol in LDL [Mass/Vol] 134 mg/dL High 0-100 [facility] Comment on above: LDL ATP III CLASSIFI CATIONLDL less than 100 mg/dL OptimalLDL 100-129 mg/dL Near or above optimalLDL 130-159 mg/dL Borderline highLDL 160-189 mg/dL HighLDL greater than 189 mg/dL Very high Cholesterol in VLDL Calc [Ma ss/Vol]Ordered By: Dedrick Fuller on 08-30-2024 Cholesterol in VLDL [Mass/Vol] 46 mg/dL [facility] Creatinine [Mass/volume] in Serum or PlasmaOrdered By: Dedrick Fullre on 08-30-2024 Creatinine [Mass/Vol] 0.75 mg/dL Normal 0.60-1.20 [facility] Comment on above: Performed By: #### L IPID, BMP #### [facility] [address] [place] [id number] [place] Glucose [Mass/volume] in Ser um or PlasmaOrdered By: Dedrick Fuller on 08-30-2024 Glucose [Mass/Vol] 95 mg/dL Normal 70-[address] [facility] Comment on above: ADA recommended refe rence rangeRandom Glucose Reference Range is dependent on time and content of last meal. Glucose of more than 200 mg/dL in a nonstressed, ambulatory subject supports the diagnosis of Diabetes Mellitus. Result Comment: [facility] Glucose Reference Range is dependent on time and content of last meal. Glucose of more than 200 mg/dL in a nonstressed, ambulatory subject supports the diagnosis of Diabetes Mellitus. ADA recommended reference range Performed By: #### L IPID, BMP #### [address] Lipid Panelon 08-30-2024 LDL Cholesterol,Calculated 134 mg/dL High 0-100 [facility] Comment on above: Result Comment: LDL ATP III CLASSIFICATION LDL less than 100 mg/dL Optimal LDL 100-129 mg/dL Near or above optimal LDL 130-159 mg/dL Borderline high LDL 160-189 mg/dL High LDL greater than 189 mg/dL Very high Performed By: #### L IPID, BMP #### [address] Triglyceride w/Reflex 231 mg/dL High 0-149 [facility] Comment on above: Result Comment: TRIG ATP III CLASSIFICATION TRIG less than 150 mg/dL Normal TRIG 150-199 mg/dL Borderline high TRIG 200-500 mg/dL High TRIG greater than 500 mg/dL Very high Standard traceable to the Center for Disease Conrtrol and Prevention (CDC) test method. Performed By: #### L IPID, BMP #### [address] VLDL CHOLESTEROL 46 mg/dL Normal [facility] Comment on above: Performed By: #### L IPID, BMP #### [address] No Panel InformationOrdered By: Dedrick Fuller on 08-30-2024 Estimated GFR (CKD-EPI) > 60.0 mL/Min [facility] Creatinine Clearance (Chem N/A [facility] Potassium [Moles/volume] in Serum or PlasmaOrdered By: Dedrick Fuller on 08-30-2024 Potassium [Moles/Vol] 4.1 mmol/L Normal 3.5-5.1 [facility] Comment on above: Performed By: #### L IPID, BMP #### [address] Serum or plasma anion gap de terminationOrdered By: Dedrick Fuller on 08-30-2024 Anion gap [Moles/Vol] 13.5 mmol/L Normal 6.0-15.0 [facility] Comment on above: Performed By: #### L IPID, BMP #### [facility] [address] [place] [address] Serum or plasma high density lipoprotein (HDL) cholesterol measurementOrdered By: Dedrick Fuller on 08-30-2024 Cholesterol in HDL [Mass/Vol] 38 mg/dL Normal 23-92 [facility] Comment on above: HDL CHOL ATP-III CLA SSIFICATION Cardiovascular RiskHDL > or equal to 60 mg/dL LOWHDL < 40 mg/dL HIGH Result Comment: HDL CHOL ATP-III CLASSIFICATION Cardiovascular Risk HDL > or equal to 60 mg/dL LOW HDL < 40 mg/dL HIGH Performed By: #### L IPID, BMP #### [facility] [address] [place] [address] Serum or plasma total choles terol/high density lipoprotein (HDL) cholesterol mass ratOrdered By: Dedrick Fuller on 08-30-2024 Cholesterol.total/Mirta sterol in HDL [Mass ratio] 5.7 {ratio} Normal <5.0 [facility] Comment on above: Result Comment: PERF ORMED BY: [place] [address] PATHOLOGIST PHARMACIST'S AIDE IRMA MARCELO M.D. Performed By: #### L IPID, BMP #### [facility] [address] [place] [address] Sodium [Moles/volume] in Ser um or PlasmaOrdered By: Dedrick Fuller on 08-30-2024 Sodium [Moles/Vol] 140 mmol/L Normal 136-[address] [facility] Comment on above: Performed By: #### L IPID, BMP #### [facility] [address] [place] [address] Triglyceride [Mass/volume] i n Serum or PlasmaOrdered By: Dedrick Fuller on 08-30-2024 Triglyceride [Mass/Vol] 231 mg/dL High 0-149 [facility] Comment on above: TRIG ATP III CLASSIF ICATIONTRIG less than 150 mg/dL NormalTRIG 150-199 mg/dL Borderline highTRIG 200-500 mg/dL High TRIG greater than 500 mg/dL Very highStandard traceable to the Center for Disease Conrtrol and Prevention (CDC) test method. Urea nitrogen [Mass/volume] in Serum or PlasmaOrdered By: Dedrick Fuller on 08-30-2024 Urea nitrogen [Mass/Vol] 18 mg/dL Normal 7-25 [facility] Comment on above: Performed By: #### L IPID, BMP #### [address] Coding Summaryon 03-19-2024 Coding Summary HTMLBase 64 IwpkovqiKAm7aTy+PGhlY WQ+FF7UXUEbB10qrAUopO 4gX1BCFHmNSfdqRWLPHQm QNzVcszAlBW4ayJFeGUZf IC8+UZ7oVQPgKxswtAVoy 1Z2iHY8W41llw4zMGfhmF M3CZPiNqSqgnxum7yyoAk 6IDcuNmluOyBt OHFczA79KCO1sP76Zz21p DRfoOBme1mimNk4IrJdBY AcYZW0mRviLVzvi8UjEZY yV62cgZHsg1N2 UDCnvJajcEKjCxKqoKM0c H5sNUmhksfub2vahktjFz d2om30tEPwa4G0oWA7S1T luuG8YBGenLKj IhlajOGYcR9udioxj7zfa aqfZkEuCWZhSPr1XLc0VR RhgYweToZsZU20NWL8CVR lomCqE4QjBCAp mDsvPyE8f4S5Ja5SH1PVJ ddpD3WDCSYYSOukoEE+PC 08pb93O0OhEtlsDvy4WWG iFTG1cGH5rM1a TULzMEddh1Q1lQI6Y7Uym wKenm2xo9zlMNSoPFicX4 2hjXJmp8G8VWAyqOU7IAH hwPkdHgStlN43 Oyc+VUXryIgwk3BtBrehe 6uaq1eavKi2ZgbuISTrpu VftMstYRA7d4TiSm5rERI ldOP4bHA6tR8p ZwOvFvC5YIbtB333NjSgz KHqNqtpC10tB9BlqRW+PH VoQro5MZMyvVznZB1wP7V hZGRpbmctbGVm oHboHZ3oPLOszwxbOHCmi X1wIZNwI6n5OoWjXnA8HS baD3LeIFNpbfkyIb27zD1 nKsTcTzO9TWwl P2YpegI8BJWcnQMkAMagL RH3O16gs1B3EKUbEOEkHL F8pOL0qT9mdZongneanBX mdDsgdmVydGlj PKqjNDwcI503OPInfItmY kNvZGluZyBEYXRlOiAgMD QvMTkvMjAyNDwvdGQ+PHR oRHU9qGbbPVPz bQSdJDceQc2frRbenYgjF X5cTHNpoiplNXHdmS1uHU GsrRRxzAukKM0sLSWbcna ao555QzRoMUJ8 QOZdgVOwG4TijF8iIcYwB JOoDUMiS2CsxMDbNDtnO0 09OHbwNdQ5RMMfnsFgF6X sLWFsaWduOiB0 k8G6Je6Zz9UlzbuhF4Mni UEnWpGuKgqhLJg3P9IcAo wvdHI+PS45GWKvFA39QFf 4RBH5zUjfJDmd SFHtD3NhmT1vKwLsVRScY GRkOyc+PHRhYmxlIHdpZH RoPScxMDAlJyBzdHlsZT0 qKk0nSJBcHKQo iLlrlAHxOzCsk2qvSFGyL MvkTN2wbMfoE6RtpPA3RI Mee1i7Mx81P34eU3DdjHR +QNHmqVV0oTN7 wR9ePkRuWvM5WHlcP467L cOhyYVqQcpdq8aon7onuT j0GqP7MXHjrmXrrGtqLRN 1x1QbNj64A48v IHdpZHRoPSIxNSUiIHZhb Zryox7klZ3qIl1+PGNvbC N6oJS2vK5rXnSbOxY6XSp gX935TeLhsGEy Etgah3gxs5rhwSq5MrHlF QIwdqXgeBycFEI5a5TeVj 49Q3HkbVdxa1SoSjg4qp4 6jAIwy0H7cQW1 F5LzYKHtllaopAFrgNifQ A8zDIJpkwnaZCYpvG8jNL IoX1a7LoTzSlQ1CCdoD5V kzlE2RGXflAJc ZUQhrHPXrV7cbyxgp3uvu kekTtGsCEUpJKa4XAk5PG FyzVgpQkHxTYJ0CoU6JNQ 0zCKjgD1zbWvi czsdjI4gQki+SJS7nBYic HCCAX9sCiochFL+PHRkIH H4wHmuUYhhPRTrgK5dWAE hU4o0NyMwLeO1 BXcoM7OsqaG9FAGwzVInS HBdyYUWzL4qigktl6uicz yiLgGwUDGoSAs2ZUh5JDW saWduOiBsZWZ0 LjB7CRX7rFPfjA9apXwfe uvysH6wXul+QmlydGggRG V5QUg6B1DwEdu6DSCxrOd cSK9uoJZqUKhx Ip7ycYxcdRgiQF1bSCEas zsvf502BlZoh3mbCKNmsZ AxMVuoSEH1J15cu1E4RFA dXMFoSKS1rGX3 aK4vgQxfadaweTOltDtef zUirRgzXMoyOHnbS786BO JlxCwiUgUqPVx1S0XhWkk 7MECnlCgtUQ6c pJMnLLsuHa2vdPosoJzpM K8uNKDrbfpsi767CbWyl2 omLISrpIBnVGcwAUF8Y23 qm4I4RQQmJGTd LEJ2wZC5kJ7tkZnwdgtni GVmdDsgdmVydGljYWwtYW zaS784JHZzgHsiLdFanAo 5N6KvAtq2RWSi iWzoDF1mfNZgCQbeIw3xy GrnfQqyOU4fNBGuzgppx9 15ChMxv3hySITohPXfIFs qJBP3H54xt8F0 IQUkBHNcQYX6eXJ0bD8us GlnbjogbGVmdDsgdmVydG mjFEkhSOyxN088PGJkfXo nPlBhdGllbnQg HWthSRu2L4HbIpewfJY+P U91AMWmQQ48mMTveGBuf5 ccdWq0LzTrAUFiTTA6zXt fTLvag9HxGYLa N92fkAObn1T5KFHadXceb TYiRrEkpOB5tX4yOBwlab dpj2iigerzCczcf2vpbd3 9jR79K04sHEye ZHRoPSIzMCUiIHZhbGlnb c3ofD9sGk8+BBWxpKS6hB J8iC6gXREzBwX7CHkfA43 9InRvcCIvPjxj j1zpo4kwmHi2FdK6LSKpk iVtoGetSQN5c0GjHo67C9 9sIHdpZHRoPSIyMCUiIHZ kvAmblt0fyI5i Ii8+VNXmvFP9vAE0eZ5wC xLpXcO9WWapC842DcNsqY MsRqpiJ07mU0WufHI+PHR hFlu1QRKmuLpi SV5amIEpJBavFv7hWDN4N gQyHeCaURaoU9WsUUFjue aecqyxkHU5LWUhDXSbjB4 9Er6wkClpOVOu zWCUwN4ruuszi9rquzafU eNbXEMtOUm7WJo5QQBalZ jpGoElMAU8MlS5KES5gKW ugE2oaUkffxgi zI3pL5AdYPNtgffmHl39b U9nBxIlYaX4VRqeJma+Q0 5LAXRODZNMLFUGPH4DVY5 QG93NKUnxqJB+ PBLsGDB0oDqxCJnqZEVzy V0rVLDbG6h8LySlMxG9KR ggW4ZtWOVbdxjqOn31fI5 cZeQtStY2NRob H0CinqU9JFDplDCxZSefY QU8N69yf6R3NVQgQAZzCO N2dMX2uT8ytZsxzetnkFC mdDsgdmVydGlj ADspMEbaS855CBJqtFiwD wD4NiT4VtY2GtE2K3GaKe b6TMPocEbwJY9okZTgJZr cZk1aqZpwwIjd WA2oAMIbpfllHYTwbY4gS JYywHFwfVqeGY3nSHLoyq jpv343JmZhSPM6YDIdeEO vF8KlwJ6uJdEl QWQdSJPbR2NvpKLwROavK 634TIbnHtQ9QAUjgmLtV4 GoFSHiuKqfCtR9z9Y4Tl1 0NyBZZWFyczwv dGQ+JEZxZMV8zKcqBJfsI ORanV8fJWWuJ4q9RaNxJr X0NVjlD1SkYCEefparMi0 9cW1vSoWzAgW4 UOlyI3YlvrF7VRWurGOcL SakDAQ1D81gg7A4XXFaDQ WlGIA3vNP6iS5vtVtczcp gbGVmdDsgdmVy zLjoSBcgVIpuB202OVLhs DsnPkZFTUFMRTwvdGQ+PH OmIDY7lLkeCYetJUYbhL6 rACZiG4j2KnNc YwA5TRmwE5FtTVZkqdbvB k86iB5sQkHvOjR6JOovS5 ZmjoE2YNZxcLIhGYlaAXQ 4U07tt8C6OQQt UOIjMQL0uYH7xH0qoFvid jogbGVmdDsgdmVydGljYW bjHEvyI186OSQzwPdoApA lUNTfYD7qnRwl dGQ+PA85wp61E2ZsTvlyG um5DOEhGYU9dBI0eF8oDQ LyYHyzc0M8jHN8B3RhasO ndg9pl3oxBZZq MOalI61ykCOjq0C4MGHqk CK2BFMcgXnwPmHltO57Uz c+GKOmtYbmi9BnMfvad7z si6wbiGx0SkMd MFYiivOxhOruWGB6z2SxV s19N45sVZokZWCeDQNkOL LqONZsdCxmwz1lwK3jGn4 +YPLnpGR5zAZ9 gX2yVmKjPzW6HEqsZ480C aOdrHTxWhvrf1flw7topS m0NyXsJBJhqhVqwFjzYEQ 7y5GoJw59M9Vn fIuqj4PwJgo3xm55eFNjv 3M7iYD1A1QwMHBtfyxknF DucRchLG2wNPGpfiebMVF erA3nGHYcL4z5 OeVuJjW0TCpbX7FxikJ4J YOesMGoZNUdmLEMjZ1aec sce2rlseceUlPlLAZbSYr 9EDw4XTNunLsp EyOyAOJ3YvH8ORM1dVVfa W6ffRaexwgugH6xQtm+UG j8g8rvwMPwUP4pdNL9UF4 0HW15kPUmh9U9 aRC2T3RoCRNpdazuhhuvt KG6PZQiESIkyM90Dr3yfO lfKx5nZFByUSZ6WFPlfMI rC9YwjM2hBxXp KPMbYDIqO3RemEUnESjyV 780HLhxDhE2QRXdyyHbU0 VuXVSxqBgdQyS5x9T5Vl6 STD55SI95YB60 pSGdi1N0gES1C4HdPIPqj gjzqhueiAP4BWAfJKVczL 68Fu1jlXmkOa2aWNHoNLB 4TCKqwDTkG8Hw lY1sIpEfTNIyHUEgA5Jiv PNoKCdtM613VDmbIaB1WA CakbVkM2NgPHMfoHufBuG 6h7T3Xe3ZWw94 PN40VN61tHCva4W8pSH9L 2QwWTHnhxuhjifneNO0NB IcIQObtR92Um1cdAceBm6 yUCNvMXX5TXJv oOOxY4UntL7wVoYuVQXiW SEuM0PkpKPgVXxtZ171BE nhOzD9JTIkvqCeE1RzMWN omVooKsG9u4Q8 Lo2KROblqfo5B8HnHleko HI+EI27NAZdLM61sBZcqV Fzr9pqwZe1WaIgJLDyLJV 8dCmaDIxjr2Kp ZXI (more content not included)... Normal [facility] Ambulance Noteon 03-17-2024 Ambulance Note [id number]#[id number] OTGTIFF [facility] C Urineon 03-17-2024 C Urine Urine Culture ordere d as a result of parameters set on specific urine dip and urine microsopic results. >100,000 cfu/ml Lactobacillus species Normal vaginal oleg isolated 10,000 cfu/ml Corynebacterium species (DIPTHEROID) No YOLANDE performed on this organism No pathogens isolated [facility] Comment on above: Performed By: #### 5 [id number] ####[facility] (DEFAULT)[address] [place] [address] .Auto Diff 1on 03-15-2024 Auto [place] % 3 % Normal 12-12 [facility] Comment on above: Performed By: #### 5 [id number], [id number], [id number], [id number], [id number] #### [facility] (DEFAULT) [address] [place] [address] Baso Abs# 0.1 x10 Normal 0.0-0.2 [facility] Comment on above: Performed By: #### 5 [id number], [id number], [id number], [id number], [id number], [id number] #### [facility] (DEFAULT) [address] [place] [address] 39113 Basophils/100 WBC (Bld) 0.7 % Normal 0.2-2.0 [facility] Comment on above: Performed By: #### 5 [id number], [id number], [id number], [id number], [id number], [id number] #### [facility] (DEFAULT) [address] [place] [address] 366[address] Eos Abs# 0.1 x10 Normal 0.0-0.4 [facility] Comment on above: Performed By: #### 5 [id number], [id number], [id number], [id number], [id number], [id number] #### [facility] (DEFAULT) [address] [place] [address] 96443 Eosinophils/100 WBC (Bld) 0.7 % Low 0.9-4.0 [facility] Comment on above: Performed By: #### 5 [id number], [id number], [id number], [id number], [id number], [id number], [id number] #### [facility] (DEFAULT) [address] [place] [address] 65846 Lymph Abs# 2.2 x10 Normal 1.3-2.9 [facility] Comment on above: Performed By: #### 5 [id number], [id number], [id number], 82207856, [id number], 4850974, 3500629 #### [facility] (DEFAULT) [address] [place] [address] 12729 Lymphocytes/100 WBC (Bld) 14 % Normal 14-48 [facility] Comment on above: Performed By: #### 5 [id number], [id number], [id number], 27491626, 8441650406, 7084636, 2934638 #### [facility] (DEFAULT) [address] [place] [address] [place] Abs# 0.5 x10 Normal 0.0-0.8 [facility] Comment on above: Performed By: #### 5 [id number], [id number], [id number], 84913559, 0539968165, 4130509, 1035267 #### [facility] (DEFAULT) [address] [place] [address] Neut Abs# 13.5 x10 High 1.5-9.2 [facility] Comment on above: Result Comment: Slid e Reviewed Performed By: #### 5 [id number], [id number], 9156931166, 52591998, 9604326085, 1127048, 6747282 #### [facility] (DEFAULT) [address] [place] [address] Neutrophils/100 WBC (Bld) 82 % Normal 44-88 [facility] Comment on above: Performed By: #### 5 [id number], [id number], 0554563221, 97983043, 6064275666, 0844243, 1034014 #### [facility] (DEFAULT) [address] [place] [address] CBC w/ Auto Diffon 4 Erythrocyte distribution width (RBC) [Ratio] 13.3 % Normal 11.5-15.0 [facility] Comment on above: Performed By: #### 5 [id number], [id number], 9852599663, 36873020, 6205041780, 3456486, 3395442 #### [facility] (DEFAULT) [address] [place] [address] Hematocrit (Bld) [Volume fraction] 45.0 % High 33.7-40.4 [facility] Comment on above: Performed By: #### 5 [id number], [id number], 0433022919, 60419327, 8753544482, 8744992, 1328240 #### [facility] (DEFAULT) [address] [place] [address] 78082 Hemoglobin (Bld) [Mass/Vol] 15.0 g/dL Normal 11.3-15.9 [facility] Comment on above: Performed By: #### 5 [id number], [id number], 7967233431, 89019672, 0374669033, 1681095, 1514390 #### [facility] (DEFAULT) [address] [place] [address] Man Diff? Auto Invalid Interpretation Code [facility] Comment on above: Performed By: #### 5 [id number], [id number], [id number], 52218515, 4199210947, 6734239, 2803894 #### [facility] (DEFAULT) [address] [place] [address] MCH (RBC) [Entitic mass] 32 pg Normal 24-34 [facility] Comment on above: Performed By: #### 5 [id number], [id number], 0932216199, 89920943, 6857486741, 4492823, 8923803 #### [facility] (DEFAULT) [address] [place] [address] MCHC (RBC) [Mass/Vol] 33 g/dL Normal 26-37 [facility] Comment on above: Performed By: #### 5 [id number], [id number], 1802982421, 37025230, 7856036373, 9942049, 6864622 #### [facility] (DEFAULT) [address] [place] [address]505 MCV (RBC) [Entitic vol] 95 fL Normal 81-100 [facility] Comment on above: Performed By: #### 5 [id number], [id number], 6416859203, 26232822, 0800158066, 6669546, 2477151 #### [facility] (DEFAULT) [address] [place] [address] 53276 Platelet 292 x10 Normal 138-427 [facility] Comment on above: Performed By: #### 5 [id number], [id number], 0123534467, 87511817, 6951616910, 7641795, 0434122 #### [facility] (DEFAULT) [address] [place] [address] Platelet mean volume (Bld) [Entitic vol] 8.7 fL Normal 6.3-10.2 [facility] Comment on above: Performed By: #### 5 [id number], [id number], 9860905351, 05459050, [id number], 1088230, 0699243 #### [facility] (DEFAULT) [address] [place] [address] RBC 4.74 x10 Normal 3.70-5.30 [facility] Comment on above: Performed By: #### 5 [id number], [id number], 3811713479, 41688558, 5131249078, 3263750, 1082364 #### [facility] (DEFAULT) [address] [place] [address] WBC 16.4 x10 High 3.5-10.5 [facility] Comment on above: Performed By: #### 5 [id number], [id number], 4291459303, 84771696, 1050322562, 2384522, 4212735 #### [facility] (DEFAULT) [address] [place] [address] CMP Standardon 03-15-2024 eGFR Non AA >60 Invalid Interpretation Code [facility] Comment on above: Performed By: #### 5 [id number], [id number], 7802280059, 28425670, 8075245759, 0805152, 9248972 #### [facility] (DEFAULT) [address] [place] [address] eGFR AA >60 Invalid Interpretation Code [facility] Comment on above: Performed By: #### 5 [id number], [id number], 0755958734, 09806754, 3395785018, 8922421, 1999498 #### [facility] (DEFAULT) [address] [place] [address] Albumin [Mass/Vol] 4.1 g/dL Normal 3.5-5.0 [facility] Comment on above: Performed By: #### 5 [id number], 8168291391, 0088483457, 15101659, 1673973459, 6050850, 4572064 #### [facility] (DEFAULT) [address] [place] [address] 26279 Albumin/Globulin [Mass ratio] 1.3 {ratio} Low 1.4-2.6 [facility] Comment on above: Performed By: #### 5 [id number], 3651657301, 9325742663, 97112042, 9012829515, 4151178, 5632384 #### [facility] (DEFAULT) [address] [place] [address] 04583 Alk Phos 39 IU/L Normal 32-91 [facility] Comment on above: Performed By: #### 5 [id number], 3336532573, 9571057232, 02786924, 3971602202, 2118390, 1639767 #### [facility] (DEFAULT) [address] [place] [address] 72598 ALT [Catalytic activity/Vol] 32.0 U/L Normal 14.0-54.0 [facility] Comment on above: Performed By: #### 5 [id number], 9913458840, 8754741600, 35270338, 2207883990, 6051995, 7991147 #### [facility] (DEFAULT) [address] [place] [address] 83921 Anion gap [Moles/Vol] 13.0 mmol/L Normal 5.0-19.0 [facility] Comment on above: Performed By: #### 5 [id number], 7892797428, 3351056592, 46871015, 7170594619, 7317233, 2371019 #### [facility] (DEFAULT) [address] [place] [address] 08544 AST [Catalytic activity/Vol] 25 U/L Normal 15-41 [facility] Comment on above: Performed By: #### 5 [id number], 9058872334, 8030821370, 92330468, 6921199090, 9300691, 6216254 #### [facility] (DEFAULT) [address] [place] [address] 19128 Bili Total 1.4 mg/dL High 0.3-1.2 [facility] Comment on above: Performed By: #### 5 [id number], 9519127623, 1575666317, 17117141, 5302505627, 1944974, 0449725 #### [facility] (DEFAULT) [address] [place] [address] 02481 Calcium [Mass/Vol] 8.8 mg/dL Low 8.9-10.3 [facility] Comment on above: Performed By: #### 5 [id number], 3752278338, 6317698815, 47035725, 9466735095, 6929571, 2251923 #### [facility] (DEFAULT) [address] [place] [address] 57157 Chloride [Moles/Vol] 105 mmol/L Normal 101-111 [facility] Comment on above: Performed By: #### 5 [id number], 2468771617, 6069859623, 37106681, 0049458943, 5656203, 9223586 #### [facility] (DEFAULT) [address] [place] [address] 81920 CO2 [Moles/Vol] 24 mmol/L Normal 21-32 [facility] Comment on above: Performed By: #### 5 [id number], 0976944570, 9826836191, 22354522, 2980293405, 7532326, 4543412 #### [facility] (DEFAULT) [address] [place] [address] 29572 Creatinine [Mass/Vol] 0.72 mg/dL Normal 0.60-1.30 [facility] Comment on above: Performed By: #### 5 [id number], 9416192450, 4163214780, 07303712, 2542555536, 5516287, 1419705 #### [facility] (DEFAULT) [address] [place] [address] 99181 Globulin (S) [Mass/Vol] 3.0 g/dL Normal 1.5-4.3 [facility] Comment on above: Performed By: #### 5 [id number], 5399856289, 5501359341, 05249468, 9140842825, 8259329, 0987786 #### [facility] (DEFAULT) [address] [place] [address] 29258 Glucose [Mass/Vol] 124.0 mg/dL High 74.0-118.0 [facility] Comment on above: Performed By: #### 5 [id number], 8426858036, 5225698835, 48859168, 9907405423, 0532951, 5266546 #### [facility] (DEFAULT) [address] [place] [address] 11990 Osmolality 278 mOsm/L Invalid Interpretation Code [facility] Comment on above: Performed By: #### 5 [id number], 8016169626, 3532430541, 87307490, 4058184264, 4405098, 1864360 #### [facility] (DEFAULT) [address] [place] [address] 94272 Potassium [Moles/Vol] 4.0 mmol/L Normal 3.6-5.1 [facility] Comment on above: Performed By: #### 5 [id number], 0586301530, 9878857219, 96867192, 2963064077, 3434684, 2111553 #### [facility] (DEFAULT) [address] [place] [address] 70497 Protein [Mass/Vol] 7.1 g/dL Normal 6.5-8.1 [facility] Comment on above: Performed By: #### 5 [id number], 1901151316, 5715350052, 65296139, 6304251568, 4295240, 1881404 #### [facility] (DEFAULT) [address] [place] [address] 15105 Sodium [Moles/Vol] 138.0 mmol/L Normal 136.0-144.0 [facility] Comment on above: Performed By: #### 5 327742567, 8411534323, 9816805882, 83263040, 5363068491, 7311363, 8835970 #### [facility] (DEFAULT) [address] [place] [address] 01914 Urea nitrogen [Mass/Vol] 15 mg/dL Normal 8-26 [facility] Comment on above: Performed By: #### 5 [id number], 1587317194, 5270007029, 01819717, 4124472051, 7065622, 5067839 #### [facility] (DEFAULT) [address] [place] [address] 76282 Urea nitrogen/Creatinine [Mass ratio] 20.8 mg/mg High 4.6-16.2 [facility] Comment on above: Performed By: #### 5 [id number], 2900965879, 4407882819, 47517287, 8544231063, 0138262, 1557006 #### [facility] (DEFAULT) [address] [place] [address] 20725 Breakpoint Chem Normal [facility] Comment on above: Performed By: #### 5 [id number], 0368746463, 1090212385, 45582229, 5609665158, 6618992, 0531225 #### [facility] (DEFAULT) [address] [place] [address] 56357 ED Clinical Summaryon 2023 ED Clinical Summary [facility] - Emergency Department [address] [place] [address] ED Clinical Summary PERSON INFORMATION Name: HORACIO KEATING Age: 48 Years Sex: FEMALE : 1975 MRN: Acct#: Visit Reason: Shortness of breath; Anxiety; Blood pressure check; SOB Arrival: 03/15/2024 17:56:51 Discharge: 03/15/2024 20:31:00 LOS: 000 02:35 Check In: 03/15/2024 17:56:51 Checkout:03/15/2024 20:31:00 Address: [address] [place] [address] PCP: SAMI MARINELLI PROVIDER INFORMATION Provider Role [...] Exa (more content not included)... [facility] ED Note - Physicianon 2023 ED Note [...] Psychiatric: (more content not included)... [facility] ED Note-Nursingon 03-15-2024 ED Note-Nursing Patient presents to the ER via [facility] for shortness of breath, anxiety. Patient [...] lead was regular in rate [facility] ED Patient Summaryon 024 ED Patient Summary [facility] - Emergency Department [address] [place] [address] PATIENT DISCHARGE INSTRUCTIONS Patient Information Name: HORACIO KEATING Age: 48 Years Date of : 1975 Reason For Visit: Shortness of breath; Anxiety; Blood pressure check; SOB Arrival Time: 03/15/2024 17:56:51 Primary Care Physician: SAMI MARINELLI Attending Physician: Nicola Neff DO Comment: Visit Diagnosis: Diagnoses This Visit Anxiety ([id number]) Blood pressure check ([id number]) Hypertension (I10) Panic attack (F41.0) Shortness of breath ([id number]) Urinary tract infection (N39.0) The Pharmacy at [facility] is open Friday through Friday from [...] alcohol and/or drug addiction problems; contact the [facility] 23/06 Crisis Hotline -Text 4HFSO to 113394. If you received any narcotics, sedation, or [...] documents With: Address: When: SAMI MARINELLI [address] [place] [address] [address] [place] [phone] Business (1) Within 3 to 5 days Comments: Call for follow up appointment Return if symptoms worsen Medication Information: The exam and treatment you received today in the [facility] Emergency Department were for an urgent problem and are not intended as complete care. It is important for you to follow up with a doctor, nurse practitioner, or physician?s high school assistant football coach for ongoing care. If your symptoms become [...] so we can reach you if necessary. [facility] Emergency Department has provided you with a complete list of medications post discharge. Please inform your communications manager/provider of your visit and for further [...] Vitals an (more content not included)... Normal [facility] Extra Greenon 03-15-2024 Tube Collected Yes Invalid Interpretation Code [facility] Comment on above: Performed By: #### 5 [id number], [id number], 8516358281, 48640170, 0422922385, 6402288, 2859158 #### [facility] (DEFAULT) [address] [place] [address] 09850 Extra Redon 03-15-2024 Tube Collected Yes Invalid Interpretation Code [facility] Comment on above: Performed By: #### 5 [id number], 2474101396, 3778863208, 24786374, 9072975323, 7760673, 9950770 #### [facility] (DEFAULT) [address] [place] [address] 13284 PTon 03-15-2024 INR Coag (PPP) [Relative time] 0.94 {INR} Normal 0.91-1.11 [facility] Comment on above: Performed By: #### 5 [id number], 2810134183, 0571147386, 78498013, 3311192802, 1743162, 7125706 #### [facility] (DEFAULT) [address] [place] [address] 56717 PT 9.8 second(s) Normal 9.7-11.8 [facility] Comment on above: Performed By: #### 5 [id number], 5642435598, 7920067427, 27607364, 6365182109, 7507489, 4599033 #### [facility] (DEFAULT) [address] [place] [address] 76136 TnI HSon 03-15-2024 Troponin I High Sensitivity 7.7 pg/mL Normal <=15.0 [facility] Comment on above: Performed By: #### 5 [id number], 1457680078, 5994809952, 40009367, 7706844271, 7339871, 2092884 #### [facility] (DEFAULT) [address] [place] [address] 37270 UA Mqlpe7iy 03-15-2024 UA Amorph. 1+ [facility] Comment on above: Order Comment: Urina lysis Microscopic order added on by Discern Expert Rules system. Performed By: #### 5 [id number], 7568018645, 4330513 ####[facility] (DEFAULT)[address] [place] [address] UA Bacteria 3+ [facility] Comment on above: Order Comment: Urina lysis Microscopic order added on by Discern Expert Rules system. Performed By: #### 5 [id number], 4670999043, 1682355 ####[facility] (DEFAULT)[address] [place] [address] 26276 UA Mucous 1+ Normal [facility] Comment on above: Order Comment: Urina lysis Microscopic order added on by Dis[employer] Expert Rules system. Performed By: #### 5 [id number], 2484020114, 3577031 ####[facility] (DEFAULT)[address] [place] [address] UA RBC 3-5 [facility] Comment on above: Order Comment: Urina lysis Microscopic order added on by Discern Expert Rules system. Performed By: #### 5 [id number], [id number], 7777076 ####[facility] (DEFAULT)[address] [place] [address] UA Renal Epi Rare [facility] Comment on above: Order Comment: Urina lysis Microscopic order added on by Discern Expert Rules system. Performed By: #### 5 [id number], 9294743291, 7666551 ####[facility] (DEFAULT)[address] [place] [address] UA Squam Epi Many [facility] Comment on above: Order Comment: Urina lysis Microscopic order added on by Discern Expert Rules system. Performed By: #### 5 [id number], 1957229637, 2933766 ####[facility] (DEFAULT)[address] [place] [address] UA WBC 3-5 [facility] Comment on above: Order Comment: Urina lysis Microscopic order added on by Discern Expert Rules system. Performed By: #### 5 [id number], 2012071632, 0425699 ####[facility] (DEFAULT)[address] [place] [address] 71064 UA w Culture if Ind Standard on 03-15-2024 Breakpoint UA Normal [facility] Comment on above: Performed By: #### 5 [id number], 1473126751, 4240828 ####[facility] (DEFAULT)[address] [place] [address] 32571 Color (U) Yellow Normal [facility] Comment on above: Performed By: #### 5 [id number], 1115851838, 6439809 ####[facility] (DEFAULT)[address] [place] [address] 47000 Culture? Indicated Invalid Interpretation Code [facility] Comment on above: Result Comment: Resu lt created by rule GL_MAGR_ADD_UA_CULT Result created by rule GL_MAGR_ADD_UA_CULT Result created by rule GL_MAGR_ADD_UA_CULT1 Result created by rule GL_MAGR_ADD_UA_CULT Performed By: #### 5 [id number], 4238343316, 9780360 ####[facility] (DEFAULT)[address] [place] [address] 99677 Glucose (U) [Mass/Vol] Negative Normal [facility] Comment on above: Performed By: #### 5 [id number], 0251041355, 5853526 ####[facility] (DEFAULT)[address] [place] [address] 63811 Ketones Ql (U) Negative [facility] Comment on above: Performed By: #### 5 3993842, 6427817906, 2471783 ####[facility] (DEFAULT)[address] [place] [address] 25963 Micro? Indicated Invalid Interpretation Code [facility] Comment on above: Result Comment: Resu lt created by rule GL_MAGR_ADD_UA_MICRO Performed By: #### 5 [id number], 0359637088, 8704776 ####[facility] (DEFAULT)[address] [place] [address] 07412 UA Bilirubin Negative [facility] Comment on above: Performed By: #### 5 [id number], 0428186294, 7586220 ####[facility] (DEFAULT)[address] [place] [address] 10417 UA Blood TRACE Abnormal NEGATIVE [facility] Comment on above: Performed By: #### 5 [id number], 5153917288, 4170624 ####[facility] (DEFAULT)[address] [place] [address] 48967 UA Clarity SL CLOUDY Abnormal CLEAR [facility] Comment on above: Performed By: #### 5 [id number], 0023233223, 0783896 ####[facility] (DEFAULT)[address] [place] [address] 82732 UA Leuk Est LARGE Abnormal NEGATIVE [facility] Comment on above: Performed By: #### 5 0560193, 7776458706, 4289464 ####[facility] (DEFAULT)[address] [place] [address] 48569 UA Nitrite Negative Normal NEGATIVE [facility] Comment on above: Performed By: #### 5 6798882, 9978232528, 0198866 ####[facility] (DEFAULT)[address] [place] [address] 71427 UA pH 6.0 Normal 5-8 [facility] Comment on above: Performed By: #### 5 8503118, 7296217517, 2396744 ####[facility] (DEFAULT)[address] [place] [address] 01381 UA Protein Negative Normal NEGATIVE [facility] Comment on above: Performed By: #### 5 [id number], 1911048854, 4987001 ####[facility] (DEFAULT)[address] [place] [address] 67680 UA Spec Grav 1.015 Normal 1.001-1.035 [facility] Comment on above: Performed By: #### 5 [id number], 1309155113, 8123289 ####[facility] (DEFAULT)[address] [place] [address] 38776 UA Urobilinogen 0.2 mg/dL Normal 0.2-1.0 [facility] Comment on above: Performed By: #### 5 [id number], 8686913842, 1325632 ####[facility] (DEFAULT)[address] [place] [address] Urine Source Clean Catch Normal [facility] Comment on above: Performed By: #### 5 [id number], [id number], 1873114 ####[facility] (DEFAULT)[address] [place] [address] XR Chest 1 View Frontalon XR Chest [...] MD 03/15/24 7:34 pm Technologist: Lizzy BRICEÑO [facility] Calcium [Mass/volume] in Ser um or PlasmaOrdered By: Dedrick Fuller on 08-15-2023 Calcium [Mass/Vol] 9.1 mg/dL 8.6-10.[address] [facility] Carbon dioxide, total [Moles /volume] in Serum or PlasmaOrdered By: Dedrick Fuller on 08-15-2023 CO2 [Moles/Vol] 26.7 mmol/L 21.0-31.0 [facility] Chloride [Moles/volume] in S altagracia or PlasmaOrdered By: Dedrick Fuller on 08-15-2023 Chloride [Moles/Vol] 107 mmol/L 98-107 [facility] Cholesterol [Mass/volume] in Serum or PlasmaOrdered By: Dedrick Fuller on 08-15-2023 Cholesterol [Mass/Vol] 166 mg/dL 140-200 [facility] Comment on above: Chol less than 200 m g/dl low riskChol 201-239 mg/dl borderline riskChol 240 mg/dl and greater high risk Cholesterol in LDL Calc [Mas s/Vol]Ordered By: Dedrick Fuller on 08-15-2023 Cholesterol in LDL [Mass/Vol] 95 mg/dL 0-100 [facility] Comment on above: LDL ATP III CLASSIFI CATIONLDL less than 100 mg/dL OptimalLDL 100-129 mg/dL Near or above optimalLDL 130-159 mg/dL Borderline highLDL 160-189 mg/dL HighLDL greater than 189 mg/dL Very high Cholesterol in VLDL Calc [Ma ss/Vol]Ordered By: Dedrick Fuller on 08-15-2023 Cholesterol in VLDL [Mass/Vol] 32 mg/dL [facility] Creatinine [Mass/volume] in Serum or PlasmaOrdered By: Dedrick Fuller on 08-15-2023 Creatinine [Mass/Vol] 0.77 mg/dL 0.60-1.20 [facility] Glucose [Mass/volume] in Ser um or PlasmaOrdered By: Dedrick Fuller on 08-15-2023 Glucose [Mass/Vol] 97 mg/dL 70-[address] [facility] Comment on above: ADA recommended refe rence rangeRandom Glucose Reference Range is dependent on time and content of last meal. Glucose of more than 200 mg/dL in a nonstressed, ambulatory subject supports the diagnosis of Diabetes Mellitus. No Panel InformationOrdered By: Dedrick Fuller on 08-15-2023 Estimated GFR (CKD-EPI) > 60.0 mL/Min [facility] Creatinine Clearance (Chem N/A [facility] Potassium [Moles/volume] in Serum or PlasmaOrdered By: Dedrick Fuller on 08-15-2023 Potassium [Moles/Vol] 4.0 mmol/L 3.5-5.1 [facility] Serum or plasma anion gap de terminationOrdered By: Dedrick Fuller on 08-15-2023 Anion gap [Moles/Vol] 10.3 mmol/L 6.0-15.0 [facility] Serum or plasma high density lipoprotein (HDL) cholesterol measurementOrdered By: Dedrick Fuller on 08-15-2023 Cholesterol in HDL [Mass/Vol] 39 mg/dL 23-92 [facility] Comment on above: HDL CHOL ATP-III CLA SSIFICATION Cardiovascular RiskHDL > or equal to 60 mg/dL LOWHDL < 40 mg/dL HIGH Serum or plasma total choles terol/high density lipoprotein (HDL) cholesterol mass ratOrdered By: Dedrick Fuller on 08-15-2023 Cholesterol.total/Mirta sterol in HDL [Mass ratio] 4.3 {ratio} <5.0 [facility] Sodium [Moles/volume] in Ser um or PlasmaOrdered By: Dedrick Fuller on 08-15-2023 Sodium [Moles/Vol] 140 mmol/L 136-[address] [facility] Triglyceride [Mass/volume] i n Serum or PlasmaOrdered By: Dedrick Fuller on 08-15-2023 Triglyceride [Mass/Vol] 162 mg/dL 0-149 F [facility] Comment on above: TRIG ATP III CLASSIF ICATIONTRIG less than 150 mg/dL NormalTRIG 150-199 mg/dL Borderline highTRIG 200-500 mg/dL High TRIG greater than 500 mg/dL Very highStandard traceable to the Center for Disease Conrtrol and Prevention (CDC) test method. Urea nitrogen [Mass/volume] in Serum or PlasmaOrdered By: Dedrick Fuller on 08-15-2023 Urea nitrogen [Mass/Vol] 10 mg/dL 7-25 [facility] GTT 2 HRon 11-09-2022 Glucose [Mass/Vol] 107 mg/dL Critically high 74-106 T [facility] Comment on above: Performed By: #### U LG, CRP #### [facility] [address] [place] [address] [address] Soo Donnelly Glucose [Mass/Vol] 152 mg/dL Normal [facility] Comment on above: Performed By: #### U LG, CRP #### [facility] [address] [place] [address] [address] Soo Donnelly Glucose [Mass/Vol] 121 mg/dL Normal [facility] Comment on above: Performed By: #### U LG, CRP #### [facility] [address] [place] [address] [address] Soo Donnelly Facesheeton 11-05-2022 Facesheet [id number] .00CD:127 Normal [facility] Physician Referralon 022 Physician Referral [id number] .00CD:127 Normal [facility] CT ABD/PELV W CONon 10-01-20 CT ABD/PELV [...] ELENA SAUCEDA Date: 2022-10-01 10:31 Normal [facility] CBC AUTO DIFFon 09-18-2022 BASO # 0.0 103/ul Normal 0.0-0.1 [facility] Comment on above: Performed By: #### A NAD #### [facility] [address] [address] [address] Soo Donnelly Basophils/100 WBC (Bld) 0.4 % Normal 0.2-2.0 T [facility] Comment on above: Performed By: #### A NAD #### [facility] [address] [place] [address] Dr. Soo Donnelly EO # 0.1 103/ul Normal 0.0-0.7 [facility] Comment on above: Performed By: #### A NAD #### [facility] [address] [place] [address] Dr. Soo Donnelly Eosinophils/100 WBC (Bld) 1.8 % Normal 0.9-7.0 [facility] Comment on above: Performed By: #### A NAD #### [facility] [address] [place] [address] Dr. Soo Donnelly Erythrocyte distribution width (RBC) [Ratio] 11.9 % Normal 11.0-15.0 [facility] Comment on above: Performed By: #### A NAD #### [facility] [address] [place] [address] Dr. Soo Donnelly Hematocrit (Bld) [Volume fraction] 43.9 % Normal 36.0-48.0 [facility] Comment on above: Performed By: #### A NAD #### [facility] [address] [place] [address] Dr. Soo Donnelly Hemoglobin (Bld) [Mass/Vol] 14.6 g/dL Normal 12.0-16.0 [facility] Comment on above: Performed By: #### A NAD #### [facility] [address] [place] [address] Dr. Soo Donnelly IG # 0.01 10e3/ul Normal 0.00-0.03 [facility] Comment on above: Performed By: #### A NAD #### [facility] [address] [place] [address] Dr. Soo Donnelly IG % 0.1 % Normal 0.0-0.5 [facility] Comment on above: Performed By: #### A NAD #### [facility] [address] [place] [address] Dr. Soo Donnelly LYMPH # 2.7 103/ul Normal 1.2-3.8 [facility] Comment on above: Performed By: #### A NAD #### [facility] [address] [place] [address] Dr. Soo Donnelly Lymphocytes/100 WBC (Bld) 39.9 % Normal 20.5-60.0 [facility] Comment on above: Performed By: #### A NAD #### [facility] [address] [place] [address] Dr. Soo Donnelly MANUAL DIFF REQ NO Normal [facility] Comment on above: Performed By: #### A NAD #### [facility] [address] [place] [address] Dr. Soo Donnelly MCH (RBC) [Entitic mass] 31.7 pg Normal 26.7-34.0 [facility] Comment on above: Performed By: #### A NAD #### [facility] [address] [place] [address] Dr. Soo Donnlely MCHC (RBC) [Mass/Vol] 33.3 g/dL Normal 29.9-35.2 [facility] Comment on above: Performed By: #### A NAD #### [facility] [address] [place] [address] Dr. Soo Donnelly MCV (RBC) [Entitic vol] 95.4 fL Normal 81.0-99.0 [facility] Comment on above: Performed By: #### A NAD #### [facility] [address] [place] [address] Dr. Soo Donnelly MONO # 0.4 103/ul Normal 0.3-0.8 [facility] Comment on above: Performed By: #### A NAD #### [facility] [address] [place] [address] Dr. Soo Donnelly Monocytes/100 WBC (Bld) 5.9 % Normal 1.7-12.0 [facility] Comment on above: Performed By: #### A NAD #### [facility] [address] [place] [address] Dr. Soo Donnelly NEUT # 3.5 103/ul Normal 1.4-6.5 [facility] Comment on above: Performed By: #### A NAD #### [facility] [address] [place] [address] Dr. Soo Donnelly Neutrophils/100 WBC (Bld) 51.9 % Normal 43.0-75.0 [facility] Comment on above: Performed By: #### A NAD #### [facility] [address] [place] [address] Dr. Soo Donnelly Platelet mean volume (Bld) [Entitic vol] 10.8 fL Normal 9.5-13.5 [facility] Comment on above: Performed By: #### A NAD #### [facility] [address] [place] [address] Dr. Soo Donnelly PLT 220 103/ul Normal 150-450 [facility] Comment on above: Performed By: #### A NAD #### [facility] [address] [place] [address] Dr. Soo Donnelly RBC 4.60 106/ul Normal 4.20-5.40 [facility] Comment on above: Performed By: #### A NAD #### [facility] [address] [place] [address] Dr. Soo Donnelly WBC 6.8 103/ul Normal 4.0-11.0 [facility] Comment on above: Performed By: #### A NAD #### [facility] [address] [place] [address] Dr. Soo Donnelly ER URINE PROFILEon 2 Bilirubin Ql (U) Negative Normal NEGATIVE [facility] Comment on above: Performed By: #### U LG, CRP #### [facility] [address] [place] [address] Dr. Soo Donnelly Clarity (U) CLEAR Normal CLEAR [facility] Comment on above: Performed By: #### U LG, CRP #### [facility] [address] [place] [address] Dr. Soo Donnelly Color (U) LT. YELLOW Normal YELLOW [facility] Comment on above: Performed By: #### U LG, CRP #### [facility] [address] [place] [address] Dr. Soo CORTEZ A micrscopic examination will be performed if indicated. Normal [facility] Comment on above: Performed By: #### U LG, CRP #### [facility] [address] [address] [address] Soo Donnelly Glucose Ql (U) Negative Normal NEGATIVE [facility] Comment on above: Performed By: #### U LG, CRP #### [facility] [address] [address] [address] Soo Donnelly Hemoglobin Ql (U) Negative Normal NEGATIVE [facility] Comment on above: Performed By: #### U LG, CRP #### [facility] [address] [address] [address] Soo Donnelly Ketones Ql (U) Negative Normal NEGATIVE [facility] Comment on above: Performed By: #### U LG, CRP #### [facility] [address] [place] [address] Dr. Soo Donnelly LEUKOCYTES Negative Normal NEGATIVE [facility] Comment on above: Performed By: #### U LG, CRP #### [facility] [address] [place] [address] Dr. Soo Donnelly Nitrite Ql (U) Negative Normal NEGATIVE [facility] Comment on above: Performed By: #### U LG, CRP #### [facility] [address] [place] [address] Dr. Soo Donnelly pH (U) 6.0 [pH] Normal 5-9 [facility] Comment on above: Performed By: #### U LG, CRP #### [facility] [address] [place] [address] Dr. Soo Donnelly SPEC GRAVITY 1.015 Normal 1.005-<=1.02 5 [facility] Comment on above: Performed By: #### U LG, CRP #### [facility] [address] [place] [address] Dr. Soo Donnelly UA PROTEIN Negative Normal NEGATIVE/ TRACE [facility] Comment on above: Performed By: #### U LG, CRP #### [facility] [address] [place] [address] Dr. Soo Donnelly UR MICRO IND NOT INDICATED Normal [facility] Comment on above: Performed By: #### U LG, CRP #### [facility] [address] [address] [address] Soo Donnelly Urobilinogen Qn (U) 0.2 {Roma'U}/dL Normal 0.2 - 1. 0 [facility] Comment on above: Performed By: #### U LG, CRP #### [facility] [address] [address] [address] Soo Donnelly PROF CHEM 8 (BAS METB)on Anion gap [Moles/Vol] 10.2 mmol/L Normal [facility] Comment on above: Performed By: #### B MP #### [facility] [address] [place] [address] Dr. Soo Donnelly Calcium [Mass/Vol] 8.7 mg/dL Normal 8.5-10.1 [facility] Comment on above: Performed By: #### B MP #### [facility] [address] [place] [address] Dr. Soo Donnelly Chloride [Moles/Vol] 103 mmol/L Normal 98-107 [facility] Comment on above: Performed By: #### B MP #### [facility] [address] [place] [address] Dr. Soo Donnelly CO2 [Moles/Vol] 27.9 mmol/L Normal 21.0-32.0 [facility] Comment on above: Performed By: #### B MP #### [facility] [address] [place] [address] Dr. Soo Donnelly Creatinine [Mass/Vol] 0.80 mg/dL Normal 0.55-1.02 [facility] Comment on above: Performed By: #### B MP #### [facility] [address] [place] [address] Dr. Soo Donnelly EGFR-AF BRAZILIAN >60 Normal >=60 [facility] Comment on above: Performed By: #### B MP #### [facility] [address] [place] [address] Dr. Soo Donnelly EGFR-NON AF BRAZILIAN >60 Normal >=60 [facility] Comment on above: Performed By: #### B MP #### [facility] [address] [address] [address] Soo Donnelly Glucose [Mass/Vol] 103 mg/dL Normal 74-[address] [facility] Comment on above: Performed By: #### B MP #### [facility] [address] [address] [address] Soo Donnelly Potassium [Moles/Vol] 4.1 mmol/L Normal 3.5-5.1 [facility] Comment on above: Performed By: #### B MP #### [facility] [address] [address] [address] Soo Donnelly Sodium [Moles/Vol] 137 mmol/L Normal 136-[address] [facility] Comment on above: Performed By: #### B MP #### [facility] [address] [address] [address] Soo Donnelly Urea nitrogen [Mass/Vol] 11.0 mg/dL Normal 7.0-18.0 [facility] Comment on above: Performed By: #### B MP #### [facility] [address] [address] [address] Soo Donnelly Urea nitrogen/Creatinine [Mass ratio] 13.8 mg/mg Normal [facility] Comment on above: Performed By: #### B MP #### [facility] [address] [address] [address] Soo Donnelly XR KUB 1 VIEWon [...] LUZ ELENA SAUCEDA Date: 2022-09-18 12:12 Normal [facility] MG MAMM SCREEN 3D DEAN CADon 09-12-2022 MG MAMM SCREEN 3D DEAN CAD Patient: HORACIO KEATING Exam Date: 09/12/2022 : 1975 Gender:F Ordering : DR DELGADO MURILLO . Admission #: [id number] Family : Order #: [id number] CLICK HERE TO VIEW EXAM RADIOLOGY REPORT [...] ovarian cancer at age 77. LOCATION: [facility] BREAST COMPOSITION: Scattered areas fibroglandular density. [...] MD on 09/13/2022 at 07:46 Normal [facility] INSULINon 07-20-2022 Insulin 25.5 uIU/mL Critically high 2.6-24.9 [facility] Comment on above: Performed By: #### U LG, CRP #### [facility] [address] [address] [address] Soo Donnelly T4 LABCORPon 07-20-2022 T4 [Mass/Vol] 7.4 ug/dL Normal 4.5-12.[address] [facility] Comment on above: Performed By: #### A NAD #### [facility] [address] [place] [address] Dr. Soo Donnelly CBC W MANUAL DIFFon 07-19-20 22 ATYPICAL LYMPH # Normal [facility] Comment on above: Performed By: #### B UN, CREA #### [facility] [address] [place] [address] Dr. Soo Donnelly ATYPICAL LYMPH % Normal [facility] Comment on above: Performed By: #### B UN, CREA #### [facility] [address] [place] [address] Dr. Soo Donnelly BAND # Normal 0.0-0.3 [facility] Comment on above: Performed By: #### B UN, CREA #### [facility] [address] [place] [address] Dr. Soo Donnelly BAND % Normal 0-5 [facility] Comment on above: Performed By: #### B UN, CREA #### [facility] [address] [place] [address] Dr. Soo Donnelly BASOM # 0.00 103/ul Normal 0.00-0.10 [facility] Comment on above: Performed By: #### B UN, CREA #### [facility] [address] [place] [address] Dr. Soo Donnelly BASOM % 0.0 % Critically low 0.2-2.0 [facility] Comment on above: Performed By: #### B UN, CREA #### [facility] [address] [place] [address] Dr. Soo Donnelly BLAST # Normal [facility] Comment on above: Performed By: #### B UN, CREA #### [facility] [address] [place] [address] Dr. Soo Donnelly BLAST % Normal [facility] Comment on above: Performed By: #### B UN, CREA #### [facility] [address] [place] [address] Dr. Soo Donnelly CORRECTED WBC Normal 4.0-11.0 [facility] Comment on above: Performed By: #### B UN, CREA #### [facility] [address] [place] [address] Dr. Soo Donnelly EOS # 0.31 103/ul Normal 0.00-0.70 [facility] Comment on above: Performed By: #### B UN, CREA #### [facility] [address] [address] [address] Soo Donnelly EOS% 2.0 % Normal 0.9-7.0 [facility] Comment on above: Performed By: #### B UN, CREA #### [facility] [address] [place] [address] Dr. Soo Donnelly HCT 41.6 % Normal 36.0-48.0 [facility] Comment on above: Performed By: #### B UN, CREA #### [facility] [address] [place] [address] Dr. Soo Donnelly HGB 13.8 g/dl Normal 12.0-16.0 [facility] Comment on above: Performed By: #### B UN, CREA #### [facility] [address] [place] [address] Dr. Soo Donnelly LYMPHM # 5.27 103/ul Critically high 1.20-3.80 [facility] Comment on above: Performed By: #### B UN, CREA #### [facility] [address] [place] [address] Dr. Soo Donnelly LYMPHM% 34.0 % Normal 20.5-60.0 [facility] Comment on above: Performed By: #### B UN, CREA #### [facility] [address] [place] [address] Dr. Soo Donnelly MCH 31.5 pg Normal 26.7-34.0 [facility] Comment on above: Performed By: #### B UN, CREA #### [facility] [address] [place] [address] Dr. Soo Donnelly MCHC 33.2 g/dl Normal 29.9-35.2 [facility] Comment on above: Performed By: #### B UN, CREA #### [facility] [address] [place] [address] Dr. Soo Donnelly MCV 95.0 fL Normal 81.0-99.0 [facility] Comment on above: Performed By: #### B UN, CREA #### [facility] [address] [place] [address] Dr. Soo Donnelly METAMYELOCYTE # Normal [facility] Comment on above: Performed By: #### B UN, CREA #### [facility] [address] [place] [address] Dr. Soo Donnelly METAMYELOCYTE % Normal [facility] Comment on above: Performed By: #### B UN, CREA #### [facility] [address] [place] [address] Dr. Soo Donnelly MONOM# 0.93 103/ul Critically high 0.30-0.80 [facility] Comment on above: Performed By: #### B UN, CREA #### [facility] [address] [place] [address] Dr. Soo Donnelly MONOM% 6.0 % Normal 1.7-12.0 [facility] Comment on above: Performed By: #### B UN, CREA #### [facility] [address] [place] [address] Dr. Soo Donnelly MPV 10.1 fL Normal 9.5-13.5 [facility] Comment on above: Performed By: #### B UN, CREA #### [facility] [address] [place] [address] Dr. Soo Donnelly MYELOCYTE # Normal [facility] Comment on above: Performed By: #### B UN, CREA #### [facility] [address] [place] [address] Dr. Soo Donnelly MYELOCYTE % Normal [facility] Comment on above: Performed By: #### B UN, CREA #### [facility] [address] [place] [address] Dr. Soo Donnelly NRBC Normal [facility] Comment on above: Performed By: #### B UN, CREA #### [facility] [address] [place] [address] Dr. Soo Donnelly PLT 260 103/ul Normal 150-450 [facility] Comment on above: Performed By: #### B UN, CREA #### [facility] [address] [address] [address] Soo Donnelly RBC 4.38 106/ul Normal 4.20-5.40 [facility] Comment on above: Performed By: #### B UN, CREA #### [facility] [address] [place] [address] Dr. Soo Donnelly RDW 12.5 % Normal 11.0-15.0 [facility] Comment on above: Performed By: #### B UN, CREA #### [facility] [address] [place] [address] Dr. Soo Donnelly SEG # 8.99 103/ul Critically high 1.40-6.50 [facility] Comment on above: Performed By: #### B UN, CREA #### [facility] [address] [place] [address] Dr. Soo Donnelly SEG % 58.0 % Normal 43.0-75.0 [facility] Comment on above: Performed By: #### B UN, CREA #### [facility] [address] [place] [address] Dr. Soo Donnelly WBC 15.5 103/ul Critically high 4.0-11.0 [facility] Comment on above: Performed By: #### B UN, CREA #### [facility] [address] [place] [address] Dr. Soo Donnelly FREE T3on 07-19-2022 FREE T3 2.62 pg/mlL Normal 2.18-3.98 [facility] Comment on above: Performed By: #### U LG, CRP #### [facility] [address] [place] [address] Dr. Soo Donnelly GLYCOHEMOGLOBIN A1Con 2021 ADA RECOMMENDATION SEE BELOW Normal [facility] Comment on above: Result Comment: ADA RECOMMENDED LIMIT 4.0 - 6.0 ADA THERAPEUTIC TARGET < 7.0 ACTION SUGGESTED > 7.0 Performed By: #### U LG, CRP #### [facility] [address] [place] [address] Dr. Soo Donnelly Glucose [Mass/Vol] 137 mg/dL Normal [facility] Comment on above: Performed By: #### U LG, CRP #### [facility] [address] [address] [address] Soo Donnelly HbA1c (Bld) [Mass fraction] 6.4 % Critically high 4.5-6.2 [facility] Comment on above: Performed By: #### U LG, CRP #### [facility] [address] [address] [address] Soo Donnelly LIPID PROFILEon 07-19-2022 CHOL-HDL RATIO NORM SEE BELOW Normal [facility] Comment on above: Result Comment: 3.3 - 4.4 LOW RISK 4.4 - 7.1 AVERAGE RISK 7.1 - 11.0 MODERATE RISK >11.0 HIGH RISK Performed By: #### U LG, CRP #### [facility] [address] [address] [address] Soo Donnelly Cholesterol [Mass/Vol] 226 mg/dL Critically high <=200 [facility] Comment on above: Performed By: #### U LG, CRP #### [facility] [address] [address] [address] Soo Donnelly Cholesterol in HDL [Mass/Vol] 33 mg/dL Critically low 40-60 [facility] Comment on above: Performed By: #### U LG, CRP #### [facility] [address] [address] [address] Soo Donnelly Cholesterol in LDL [Mass/Vol] 135.2 mg/dL Normal [facility] Comment on above: Performed By: #### U LG, CRP #### [facility] [address] [address] [address] Soo Donnelly Cholesterol.total/Mirta sterol in HDL [Mass ratio] 6.8 {ratio} Normal [facility] Comment on above: Performed By: #### U LG, CRP #### [facility] [address] [address] [address] Soo Donnelly HDL NORMAL > or = 60 mg/dl - LO W CARDIOVASCULAR RISK <40 mg/dl - HIGH CARDIOVASCULAR RISK Normal [facility] Comment on above: Performed By: #### U LG, CRP #### [facility] [address] [address] [address] Soo Donnelly LDL CALC NORMAL SEE BELOW Normal [facility] Comment on above: Result Comment: <100 mg/dl OPTIMAL 100 - 129 mg/dl NEAR OR ABOVE OPTIMAL 130 - 159 mg/dl BORDERLINE HIGH 160 - 189 mg/dl HIGH >190 mg/dl VERY HIGH Performed By: #### U LG, CRP #### [facility] [address] [address] [address] Soo Donnelly Triglyceride [Mass/Vol] 289 mg/dL Critically high <=150 [facility] Comment on above: Performed By: #### U LG, CRP #### [facility] [address] [address] [address] Soo Donnelly VLDL CALC 57.8 mg/dL Normal [facility] Comment on above: Performed By: #### U LG, CRP #### [facility] [address] [address] [address] Soo Donnelly PROF 14(COMP METB)on 022 Albumin [Mass/Vol] 3.2 g/dL Critically low 3.4-5.0 [facility] Comment on above: Performed By: #### U LG, CRP #### [facility] [address] [address] [address] Soo Donnelly Albumin/Globulin [Mass ratio] 1.1 {ratio} Normal [facility] Comment on above: Performed By: #### U LG, CRP #### [facility] [address] [address] [address] Soo Donnelly ALP [Catalytic activity/Vol] 41 U/L Critically low 46-116 [facility] Comment on above: Performed By: #### U LG, CRP #### [facility] [address] [address] [address] Soo Donnelly ALT [Catalytic activity/Vol] 46 U/L Normal 14-59 [facility] Comment on above: Performed By: #### U LG, CRP #### [facility] [address] [address] [address] Soo Donnelly Anion gap [Moles/Vol] 9.3 mmol/L Normal [facility] Comment on above: Performed By: #### U LG, CRP #### [facility] [address] [address] [address] Soo Donnelly AST [Catalytic activity/Vol] 18 U/L Normal 15-37 [facility] Comment on above: Performed By: #### U LG, CRP #### [facility] [address] [address] [address] Soo Donnelly Bilirubin [Mass/Vol] 0.7 mg/dL Normal 0.2-1.0 [facility] Comment on above: Performed By: #### U LG, CRP #### [facility] [address] [address] [address] Soo Donnelly Calcium [Mass/Vol] 8.1 mg/dL Critically low 8.5-10.1 [facility] Comment on above: Performed By: #### U LG, CRP #### [facility] [address] [address] [address] Soo Donnelly Chloride [Moles/Vol] 101 mmol/L Normal 98-107 [facility] Comment on above: Performed By: #### U LG, CRP #### [facility] [address] [address] [address] Soo Donnelly CO2 [Moles/Vol] 31.1 mmol/L Normal 21.0-32.0 [facility] Comment on above: Performed By: #### U LG, CRP #### [facility] [address] [address] [address] Soo Donnelly Creatinine [Mass/Vol] 0.77 mg/dL Normal 0.55-1.02 [facility] Comment on above: Performed By: #### U LG, CRP #### [facility] [address] [place] [address] Dr. Soo Donnelly EGFR-AF BRAZILIAN >60 Normal >=60 [facility] Comment on above: Performed By: #### U LG, CRP #### [facility] [address] [address] [address] Soo Donnelly EGFR-NON AF BRAZILIAN >60 Normal >=60 [facility] Comment on above: Performed By: #### U LG, CRP #### [facility] [address] [address] [address] Soo Donnelly Globulin (S) [Mass/Vol] 3.0 g/dL Normal T [facility] Comment on above: Performed By: #### U LG, CRP #### [facility] [address] [address] [address] Soo Donnelly Glucose [Mass/Vol] 104 mg/dL Normal 74-106 [facility] Comment on above: Performed By: #### U LG, CRP #### [facility] [address] [address] [address] Soo Donnelly Potassium [Moles/Vol] 3.4 mmol/L Critically low 3.5-5.1 [facility] Comment on above: Performed By: #### U LG, CRP #### [facility] [address] [address] [address] Soo Donnelly Protein [Mass/Vol] 6.2 g/dL Critically low 6.4-8.2 [facility] Comment on above: Performed By: #### U LG, CRP #### [facility] [address] [address] [address] Soo Donnelly Sodium [Moles/Vol] 138 mmol/L Normal 136-145 [facility] Comment on above: Performed By: #### U LG, CRP #### [facility] [address] [address] [address] Soo Donnelly Urea nitrogen [Mass/Vol] 16.0 mg/dL Normal 7.0-18.0 [facility] Comment on above: Performed By: #### U LG, CRP #### [facility] [address] [address] [address] Soo Donnelly Urea nitrogen/Creatinine [Mass ratio] 20.8 mg/mg Normal [facility] Comment on above: Performed By: #### U LG, CRP #### [facility] [address] [address] [address] Soo Donnelly TSHon 07-19-2022 TSH 3.262 uIU/mL Normal 0.358-3.[address] [facility] Comment on above: Performed By: #### U LG, CRP #### [facility] [address] [place] [address] Dr. Soo Donnelly CBC AUTO DIFFon 05-18-2022 BASO # 0.0 103/ul Normal 0.0-0.1 [facility] Comment on above: Performed By: #### U LG, CRP #### [facility] [address] [place] [address] Dr. Soo Donnelly Basophils/100 WBC (Bld) 0.2 % Normal 0.2-2.0 [facility] Comment on above: Performed By: #### U LG, CRP #### [facility] [address] [place] [address] Dr. Soo Donnelly EO # 0.0 103/ul Normal 0.0-0.7 [facility] Comment on above: Performed By: #### U LG, CRP #### [facility] [address] [place] [address] Dr. Soo Donnelly Eosinophils/100 WBC (Bld) 0.2 % Critically low 0.9-7.0 [facility] Comment on above: Performed By: #### U LG, CRP #### [facility] Laboratory [address] [place] [address] Dr. Soo Donnelly Erythrocyte distribution width (RBC) [Ratio] 12.8 % Normal 11.0-15.0 [facility] Comment on above: Performed By: #### U LG, CRP #### [facility] [address] [place] [address] Dr. Soo Donnelly Hematocrit (Bld) [Volume fraction] 35.7 % Critically low 36.0-48.0 [facility] Comment on above: Performed By: #### U LG, CRP #### [facility] [address] [place] [address] Dr. Soo Donnlely Hemoglobin (Bld) [Mass/Vol] 11.5 g/dL Critically low 12.0-16.0 [facility] Comment on above: Performed By: #### U LG, CRP #### [facility] [address] [address] [address] Soo Donnelly IG # 0.07 10e3/ul Critically high 0.00-0.03 [facility] Comment on above: Performed By: #### U LG, CRP #### [facility] [address] [address] [address] Soo Donnelly IG % 0.5 % Normal 0.0-0.5 [facility] Comment on above: Performed By: #### U LG, CRP #### [facility] [address] [address] [address] Soo Donnelly LYMPH # 4.1 103/ul Critically high 1.2-3.8 [facility] Comment on above: Performed By: #### U LG, CRP #### [facility] [address] [address] [address] Soo Donnelly Lymphocytes/100 WBC (Bld) 28.3 % Normal 20.5-60.0 [facility] Comment on above: Performed By: #### U LG, CRP #### [facility] [address] [address] [address] Soo Donnelly MANUAL DIFF REQ NO Normal [facility] Comment on above: Performed By: #### U LG, CRP #### [facility] [address] [address] [address] Soo Donnelly MCH (RBC) [Entitic mass] 31.7 pg Normal 26.7-34.0 [facility] Comment on above: Performed By: #### U LG, CRP #### [facility] [address] [address] [address] Soo Donnelly MCHC (RBC) [Mass/Vol] 32.2 g/dL Normal 29.9-35.2 [facility] Comment on above: Performed By: #### U LG, CRP #### [facility] [address] [address] [address] Soo Donnelly MCV (RBC) [Entitic vol] 98.3 fL Normal 81.0-99.0 [facility] Comment on above: Performed By: #### U LG, CRP #### [facility] [address] [address] [address] Soo Donnelly MONO # 0.8 103/ul Normal 0.3-0.8 [facility] Comment on above: Performed By: #### U LG, CRP #### [facility] [address] [address] [address] Soo Donnelly Monocytes/100 WBC (Bld) 5.6 % Normal 1.7-12.0 [facility] Comment on above: Performed By: #### U LG, CRP #### [facility] [address] [address] [address] Soo Donnelly NEUT # 9.4 103/ul Critically high 1.4-6.5 [facility] Comment on above: Performed By: #### U LG, CRP #### [facility] [address] [place] [address] Dr. Soo Donnelly Neutrophils/100 WBC (Bld) 65.2 % Normal 43.0-75.0 [facility] Comment on above: Performed By: #### U LG, CRP #### [facility] [address] [address] [address] Soo Donnelly Platelet mean volume (Bld) [Entitic vol] 10.8 fL Normal 9.5-13.5 [facility] Comment on above: Performed By: #### U LG, CRP #### [facility] [address] [address] [address] Soo Donnelly PLT 191 103/ul Normal 150-450 [facility] Comment on above: Performed By: #### U LG, CRP #### [facility] [address] [address] [address] Soo Donnelly RBC 3.63 106/ul Critically low 4.20-5.40 [facility] Comment on above: Performed By: #### U LG, CRP #### [facility] [address] [address] [address] Soo Donnelly WBC 14.4 103/ul Critically high 4.0-11.0 [facility] Comment on above: Performed By: #### U LG, CRP #### [facility] [address] [place] [address] Dr. Soo Donnelly BUNon 05-17-2022 Urea nitrogen [Mass/Vol] 8.0 mg/dL Normal 7.0-18.0 [facility] Comment on above: Performed By: #### B UN, CREA #### [facility] [address] [place] [address] Dr. Soo Donnelly CBC AUTO DIFFon 05-17-2022 BASO # 0.0 103/ul Normal 0.0-0.1 [facility] Comment on above: Performed By: #### U LG, CRP #### [facility] [address] [place] [address] Dr. Soo Donnelly Basophils/100 WBC (Bld) 0.1 % Critically low 0.2-2.0 [facility] Comment on above: Performed By: #### U LG, CRP #### [facility] [address] [place] [address] Dr. Soo Donnelly EO # 0.0 103/ul Normal 0.0-0.7 [facility] Comment on above: Performed By: #### U LG, CRP #### [facility] [address] [place] [address] Dr. Soo Donnelly Eosinophils/100 WBC (Bld) 0.0 % Critically low 0.9-7.0 [facility] Comment on above: Performed By: #### U LG, CRP #### [facility] [address] [place] [address] Dr. Soo Donnelly Erythrocyte distribution width (RBC) [Ratio] 12.5 % Normal 11.0-15.0 [facility] Comment on above: Performed By: #### U LG, CRP #### [facility] [address] [place] [address] Dr. Soo Donnelly Hematocrit (Bld) [Volume fraction] 38.5 % Normal 36.0-48.0 [facility] Comment on above: Performed By: #### U LG, CRP #### [facility] [address] [place] [address] Dr. Soo Donnelly Hemoglobin (Bld) [Mass/Vol] 13.0 g/dL Normal 12.0-16.0 [facility] Comment on above: Performed By: #### U LG, CRP #### [facility] [address] [place] [address] Dr. Soo Donnelly IG # 0.16 10e3/ul Critically high 0.00-0.03 [facility] Comment on above: Performed By: #### U LG, CRP #### [facility] [address] [place] [address] Dr. Soo Donnelly IG % 0.7 % Critically high 0.0-0.5 [facility] Comment on above: Performed By: #### U LG, CRP #### [facility] [address] [place] [address] Dr. Soo Donnelly LYMPH # 3.0 103/ul Normal 1.2-3.8 [facility] Comment on above: Performed By: #### U LG, CRP #### [facility] [address] [place] [address] Dr. Soo Donnelly Lymphocytes/100 WBC (Bld) 12.2 % Critically low 20.5-60.0 [facility] Comment on above: Performed By: #### U LG, CRP #### [facility] [address] [place] [address] Dr. Soo Donnelly MANUAL DIFF REQ NO Normal [facility] Comment on above: Performed By: #### U LG, CRP #### [facility] [address] [place] [address] Dr. Soo Donnelly MCH (RBC) [Entitic mass] 32.4 pg Normal 26.7-34.0 [facility] Comment on above: Performed By: #### U LG, CRP #### [facility] [address] [place] [address] Dr. Soo Donnelly MCHC (RBC) [Mass/Vol] 33.8 g/dL Normal 29.9-35.2 [facility] Comment on above: Performed By: #### U LG, CRP #### [facility] [address] [place] [address] Dr. Soo Donnelly MCV (RBC) [Entitic vol] 96.0 fL Normal 81.0-99.0 [facility] Comment on above: Performed By: #### U LG, CRP #### [facility] [address] [address] [address] Soo Donnelly MONO # 1.3 103/ul Critically high 0.3-0.8 [facility] Comment on above: Performed By: #### U LG, CRP #### [facility] [address] [place] [address] Dr. Soo Donnelly Monocytes/100 WBC (Bld) 5.4 % Normal 1.7-12.0 [facility] Comment on above: Performed By: #### U LG, CRP #### [facility] [address] [place] [address] Dr. Soo Donnelly NEUT # 19.8 103/ul Critically high 1.4-6.5 [facility] Comment on above: Performed By: #### U LG, CRP #### [facility] [address] [place] [address] Dr. Soo Donnelly Neutrophils/100 WBC (Bld) 81.6 % Critically high 43.0-75.0 [facility] Comment on above: Performed By: #### U LG, CRP #### [facility] [address] [place] [address] Dr. Soo Donnelly Platelet mean volume (Bld) [Entitic vol] 10.5 fL Normal 9.5-13.5 [facility] Comment on above: Performed By: #### U LG, CRP #### [facility] [address] [place] [address] Dr. Soo Donnelly PLT 253 103/ul Normal 150-450 [facility] Comment on above: Performed By: #### U LG, CRP #### [facility] [address] [place] [address] Dr. Soo Donnelly RBC 4.01 106/ul Critically low 4.20-5.40 [facility] Comment on above: Performed By: #### U LG, CRP #### [facility] [address] [address] [address] Soo Donnelly WBC 24.3 103/ul Critically high 4.0-11.0 [facility] Comment on above: Performed By: #### U LG, CRP #### [facility] [address] [address] [address] Soo Donnelly BASO # 0.0 103/ul Normal 0.0-0.1 [facility] Comment on above: Performed By: #### U LG, CRP #### [facility] [address] [address] [address] Soo Donnelly Basophils/100 WBC (Bld) 0.1 % Critically low 0.2-2.0 [facility] Comment on above: Performed By: #### U LG, CRP #### [facility] [address] [address] [address] Soo Donnelly EO # 0.0 103/ul Normal 0.0-0.7 [facility] Comment on above: Performed By: #### U LG, CRP #### [facility] [address] [address] [address] Soo Donnelly Eosinophils/100 WBC (Bld) 0.0 % Critically low 0.9-7.0 [facility] Comment on above: Performed By: #### U LG, CRP #### [facility] [address] [place] [address] Dr. Soo Donnelly Erythrocyte distribution width (RBC) [Ratio] 12.3 % Normal 11.0-15.0 [facility] Comment on above: Performed By: #### U LG, CRP #### [facility] [address] [place] [address] Dr. Soo Donnelly Hematocrit (Bld) [Volume fraction] 41.2 % Normal 36.0-48.0 [facility] Comment on above: Performed By: #### U LG, CRP #### [facility] [address] [place] [address] Dr. Soo Donnelly Hemoglobin (Bld) [Mass/Vol] 13.5 g/dL Normal 12.0-16.0 [facility] Comment on above: Performed By: #### U LG, CRP #### [facility] [address] [address] [address] Soo Donnelly IG # 0.11 10e3/ul Critically high 0.00-0.03 [facility] Comment on above: Performed By: #### U LG, CRP #### [facility] [address] [address] [address] Soo Donnelly IG % 0.5 % Normal 0.0-0.5 [facility] Comment on above: Performed By: #### U LG, CRP #### [facility] [address] [address] [address] Soo Donnelly LYMPH # 1.6 103/ul Normal 1.2-3.8 [facility] Comment on above: Performed By: #### U LG, CRP #### [facility] [address] [place] [address] Dr. Soo Donnelly Lymphocytes/100 WBC (Bld) 7.8 % Critically low 20.5-60.0 [facility] Comment on above: Performed By: #### U LG, CRP #### [facility] [address] [address] [address] Soo Donnelly MANUAL DIFF REQ NO Normal [facility] Comment on above: Performed By: #### U LG, CRP #### [facility] [address] [address] [address] Soo Donnelly MCH (RBC) [Entitic mass] 31.8 pg Normal 26.7-34.0 [facility] Comment on above: Performed By: #### U LG, CRP #### [facility] [address] [address] [address] Soo Donnelly MCHC (RBC) [Mass/Vol] 32.8 g/dL Normal 29.9-35.2 [facility] Comment on above: Performed By: #### U LG, CRP #### [facility] [address] [address] [address] Soo Donnelly MCV (RBC) [Entitic vol] 96.9 fL Normal 81.0-99.0 [facility] Comment on above: Performed By: #### U LG, CRP #### [facility] [address] [address] [address] Soo Donnelly MONO # 0.4 103/ul Normal 0.3-0.8 [facility] Comment on above: Performed By: #### U LG, CRP #### [facility] [address] [address] [address] Soo Donnelly Monocytes/100 WBC (Bld) 2.0 % Normal 1.7-12.0 [facility] Comment on above: Performed By: #### U LG, CRP #### [facility] [address] [address] [address] Soo Donnelly NEUT # 18.1 103/ul Critically high 1.4-6.5 [facility] Comment on above: Performed By: #### U LG, CRP #### [facility] [address] [place] [address] Dr. Soo Donnelly Neutrophils/100 WBC (Bld) 89.6 % Critically high 43.0-75.0 [facility] Comment on above: Performed By: #### U LG, CRP #### [facility] [address] [place] [address] Dr. Soo Donnelly Platelet mean volume (Bld) [Entitic vol] 11.0 fL Normal 9.5-13.5 [facility] Comment on above: Performed By: #### U LG, CRP #### [facility] [address] [address] [address] Soo Donnelly PLT 223 103/ul Normal 150-450 [facility] Comment on above: Performed By: #### U LG, CRP #### [facility] [address] [address] [address] Soo Donnelly RBC 4.25 106/ul Normal 4.20-5.40 [facility] Comment on above: Performed By: #### U LG, CRP #### [facility] [address] [place] [address] Dr. Soo Donnelly WBC 20.2 103/ul Critically high 4.0-11.0 [facility] Comment on above: Performed By: #### U LG, CRP #### [facility] [address] [address] [address] Soo Donnelly CREATININEon 05-17-2022 Creatinine [Mass/Vol] 0.97 mg/dL Normal 0.55-1.02 [facility] Comment on above: Performed By: #### B UN, CREA #### [facility] [address] [address] [address] Soo Donnelly EGFR-AF BRAZILIAN >60 Normal >=60 [facility] Comment on above: Performed By: #### B UN, CREA #### [facility] [address] [address] [address] Soo Donnelly EGFR-NON AF BRAZILIAN >60 Normal >=60 [facility] Comment on above: Performed By: #### B UN, CREA #### [facility] [address] [address] [address] Soo Donnelly CTA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 Test: Neurological: Reflexes: B UE 2+ Myotomes: intact Dermatomes: intact Special test: - gutiérrez Lumbar AROM: Flexion to toes, severe pain Extension 50% limited, severe pain B rotation 25% limited, pain Muscle length: decreased HS, quad Palpation: Severe TTP with light touch to B SIJ, paraspinals Special Test: -SLR -slump Functional: painful bed mobility, transfers with slow, graded movements Gait is antalgic with LOB Neurological: Reflexes: B LE 2+ Myotomes: Intact Special test: + rhomberg - clonus Treatment: Education: HEP education with demonstration, Educated on Eval Findings and POC Manual Therapy: STM, joint mobs, MFR, cupping Therapeutic Exercise: flexibility, ROM, strength Aquatic Therapy: if needed Neuromuscular re-education: core stabs Modalities: heat, ice, estim; no lumbar traction due to cyst; cervical traction Today: IE. Given severity of symptoms, chronicity, radicular symptoms, and + rhomberg with EC LOB I do not feel Horacio is a good candidate for PT at this point and would likely be made worse. Recommend follow up with pain management to discuss further options. Assessment: Outcome Measure: Back index: 74% impaired; Neck index: 56% impaired Given severity of symptoms, chronicity, radicular symptoms, and + rhomberg with EC LOB I do not feel Horacio is a good candidate for PT at this point and would likely be made worse. Recommend follow up with pain management to discuss further options. I hereby deem this POC medically necessary. Please sign below. Date: documented in this encounter [facility] 03-15-2024 Note Education Materials Cardiovascular Hypertension, Adult [...] Keep all follow-up visits. Medicines ? Take [id number] and prescription medicines only as told by [...] work harder to (more content not included)... [facility] 11-25-2022 Note Chief Complaint consultation for [...] - Denies A (more content not included)... [facility] Comment on above: Result Comment: Elec tronically [...] was counseling done by myself, Ann ANGLIN. [facility] Other 09-28-2022 Evaluation note* Encounter Date Diagnosis Assessment Notes Treatment Notes Treatment Clinical Notes Aug, Abnormal weight gain (ICD-10 - R63.5) Aug, Prediabetes (ICD-10 - R73.03) Aug, Mixed hyperlipidemia (ICD-10 - E78.2) Aug, Hypertension (ICD-10 - I10) Aug, Obstructive sleep apnea (ICD-10 - G47.33) Aug, GERD (gastroesophageal reflux disease) (ICD-10 - K21.9) Aug, Metabolic syndrome X (ICD-10 - E88.81) [facility] Other 06-16-2022 NoteDISCHARGE SUMMARY DISCHARGE DATE: 05/18/2022 [...] pain free and no longer on narcotics. [facility] Signed and Approved by: DR DELGADO MURILLO . 05/20/2022 07:51:00[id number] NoteThe [place], [place] NAME: HORACIO PUGH DATE OF : MEDICAL REC#: [id number] MEDIA PRODUCTION OPERATOR: [id number] [facility] ADMIT DATE: 05/16/2022 11:05:00 DECORATING AND ASSEMBLY SUPERVISOR DATE: 05/17/2022 21:20 DICTATING PHYSICIAN: DELGADO MURILLO DICTATION DATE: 05/16/2022 15:02 OP Note OPERATION DATE: 05/16/2022 PROCEDURE: Supracervical hysterectomy with left salpingo-oophorectomy with right salpingectomy and right ovarian cystotomy of approximately 3 cm cyst. SURGEON: Delgado Murillo D.O. IMMIGRATION INVESTIGATOR: SHUKRI Bailon URINE OUTPUT: Yellow and clear. [...] the patient's lower uterine segment. A curved Merlin was placed across the uterine artery on the lt side which was clamped, transected, and suture ligated using #0 Monocryl. On the pt rt side the ligasure came across the rt mesosalpingx and uteroovarian ligament. The the ligasure apparatus was carried down through the broad ligament to the uterine artery. a curved merlin was placed on the rt side which [...] stable condition. Electronically Authenticated and Edited by: Delgado Murillo DO on 05/23/2022 10:30 AM EDT IF Signed and Approved by: DR DELGADO MURILLO . 05/23/2022 10:30:00[facility] No data available for this section [facility] [place] Evaluation noteNo InformationNort Ke[employer] Other Evaluation noteNo assessment information available [facility] Work Phone: Evaluation note* Diagnosis Neck pain- Primary Cervicalgia Chronic bilateral low back pain with bilateral sciatica documented [facility] N[facility] - Reported* Type Description Date [...] History TMJ surgery Hospitalization History see above [facility] Other History general Narrative - Reported* Type [...] see above Hospitalization History ER-abd . pain [facility] 09/18/22 [facility] Other Hospital Discharge instructions No data available for this section [facility] note No data available for this section General [facility] [employer] Summary Purpose Family History Relationship Condition Age at Onset Recorded Date/T [...] FOR VISIT (unrecogniz ed section and content) Specialty Diagnoses / Procedures Referred By Contac t Referred To Contact Physical Therapy Diagnoses Other spondylosis, lumbar region Procedures SD PHYS THERAPY EVALUATION Edwige Magaña MD [facility] [place] [address] Carol Webb, PT [address] [place] [address] Referral ID Status Reason Start Date Expiration Date V isits Requested Visits Authorized [id number] Authorized 09/02/2024 03/01/2025 40 40 Patient Care team informatio n (unrecognized section and content) Team Status: Active Member Role Status Dates NON STAFF Primary Care Provider Active Team Status: Inactive Member Role Status Dates NON STAFF Primary Care Provider Active Dedrick Fuller DO [facility] Attending Provider Active Team Status: Inactive Member Role Status Dates NON STAFF Primary Care Provider Active Start: August 30, 2024 End: August 30, 2024 Dedrick Fuller - [facility] , DO [facility] Attending Provider Active Start: August 30, 2024 End: August 30, 2024 [employer] Relationship Specialty Start Date End Date Sami Marinelli MD [address] [place] [address] PCP - General Family Medicine 06/26/23 [employer] Relationship Specialty Start Date End Date Sami Marinelli MD [address] [place] [address] PCP - General Family Medicine 06/26/23 INFORMATION SOURCE (unrecogn ized section and content) DATE CREATED AUTHOR 11/26/2022 [facility] DATE CREATED AUTHOR AUTHOR'S ORGANIZ ATION 12/03/2022 [facility] DATE CREATED AUTHOR AUTHOR'S ORGANIZ ATION [facility] DATE CREATED AUTHOR AUTHOR'S ORGANIZ ATION 08/31/2024 [facility] DATE CREATED AUTHOR AUTHOR'S ORGANIZ ATION 09/12/2024 [facility] EPIC Goals (unrecognized section [...] BE BASED ON THE PRIMARY CLINICAL RECORDS. [employer] provides no warranty or guarantee of the accuracy or completeness of information in this document.
--- NOTE | 2024-09-20 18:11 | PM.CN ---
Consult Note: HPI Data of Consult Patient: known to practice within the last 3 years Consult date: 09/20/24 Requesting Physician: Hebert Jara MD Primary Care Provider: Varun Marinelli MD Consult Narrative Reason for consult: low back, leg pain, neck and shoulder pain Narrative: 49yof who presents for assessment. worsening low back pain with pain that radiates into bilateral lower extremities. imaging reviewed, significant for moderate canal stenosis at l3-4, as well as more mild stenosis at other levels. synovial cyst seen at l3-4 with some compression of nerve root. multilevel spondylosis noted. cervical imaging consistent with multilevel spondylosis, worst at c4-5 and c5-6. has continued in a series of provider directed home exercises >6 weeks, without lasting benefit. has tried various nsaids and muscle relaxers, without significant benefit. denies adverse med side effects. 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, unspecified (ICD-10) Heartburn ?R12 - Heartburn (ICD-10) Acid reflux ?K21.9 - Gastro-esophageal reflux disease without esophagitis (ICD-10) Obesity ?E66.9 - Obesity, unspecified (ICD-10) Diabetes ?E11.9 - Type 2 diabetes mellitus without complications (ICD-10) Former smoker ?Z87.891 - Personal history of nicotine dependence (ICD-10) Sleep apnea ?G47.30 - Sleep apnea, unspecified (ICD-10) Hypertension ?I10 - Essential (primary) hypertension (ICD-10) High cholesterol ?E78.00 - Pure hypercholesterolemia, unspecified (ICD-10) Surgical History S/P excision of lipoma ?Z98.890 - Other specified postprocedural states (ICD-10) ?Z86.018 - Personal history of other benign neoplasm (ICD-10) S/P left knee arthroscopy ?Z98.890 - Other specified postprocedural states (ICD-10) Hx laparoscopic cholecystectomy ?Z90.49 - Acquired absence of other specified parts of digestive tract (ICD-10) H/O breast surgery ?Z98.890 - Other specified postprocedural states (ICD-10) H/O laparoscopy ?Z98.890 - Other specified postprocedural states (ICD-10) H/O: ?Z98.891 - History of uterine scar from previous surgery (ICD-10) H/O abdominoplasty ?Z98.890 - Other specified postprocedural states (ICD-10) H/O: hysterectomy ?Z90.710 - Acquired absence of both cervix and uterus (ICD-10) Meds Home Medications and Allergies Home Medications ?Medication ?Instructions ?Recorded ?Confirmed ?Type alprazolam 0.25 mg tablet 0.25 mg PO TID 03/27/24 03/27/24 History omeprazole 40 mg capsule,delayed 40 mg PO BID 03/27/24 03/27/24 History release aspirin 325 mg tablet 325 mg PO DAILY 09/02/24 09/02/24 History dextroamphetamine-amphetamine 30 30 mg PO DAILY 09/02/24 09/02/24 History mg tablet (Adderall) lisinopril 20 mg tablet 20 mg PO DAILY 09/02/24 09/02/24 History metoprolol tartrate 75 mg tablet 75 mg PO BID 09/02/24 09/02/24 History semaglutide 0.25 mg or 0.5 mg (2 0.25 mg subcut QWEEK 09/02/24 09/02/24 History mg/3 mL) subcutaneous pen injector (Ozempic) indomethacin 50 mg capsule 50 mg PO BID 09/20/24 09/20/24 History tizanidine 4 mg tablet (Zanaflex) 4 mg PO TID PRN muscle spasticity 09/20/24 09/20/24 History Allergies Allergy/AdvReac Type Severity Reaction Status Date / Time nitrofurantoin (From Allergy Mild Anaphylaxis Verified 03/27/24 12:37 Macrobid) pecan Allergy Intermediate Uncoded 03/27/24 12:37 Exam Narrative Exam Narrative: Psych-alert and oriented x 3. Attentive and appropriate, constitutionally normal, displays normal mood and affect per situation. There are no obvious deficits in memory, reasoning, or intellect.? Skin-no obvious rashes, bruising, erythema noted to the patient's area of pain.? Extremities- extremities are warm with minimal edema and palpable pulses. Cervical- tenderness to palpation noted in the cervical spine and paraspinal musculature.? Pain is elicited with extension, and lateral rotation of the cervical spine.? Range of motion is slightly diminished due to pain. Facet loading maneuvers are positive bilaterally.? Lumbar-tenderness to palpation noted in the lumbar spine and paraspinal musculature. Pain is not elicited with flexion, extension, and lateral rotation of the lumbar spine. Range of motion is not diminished with these motions. Facet loading maneuvers are positive.? Strength-noted to be unremarkable with the exception of decreased strength rated at 4 out of 5 in bilateral quadriceps femoris, anterior tibialis. Sensory-no notable sensory deficits in the bilateral lower extremities to touch or pinprick in all dermatomal distributions with the exception to decreased sensation to the bilateral L3, 4, 5dermatomal distribution Coordination remains intact.? Gait remains non-antalgic. Assessment and Plan Assessment and Plan (1) Lumbar stenosis with neurogenic claudication: (2) Cervical spondylosis: (3) Degenerative disc disease, cervical: Plan 49yof who presents for assessment. failed conservative measures, as noted. imaging reviewed, as noted. given symptoms and imaging, prudent to attempt bilateral l3-4 tfesi under fluoroscopic guidance. in terms of neck and shoulder pain, given symptoms and imaging, prudent to attempt bilateral c4-5, 5-6 medial branch block under fluoroscopic guidance. she is in agreement. meds reviewed, no changes. follow up after procedure.
== END 2024-09-20 14:00 | disposition home or self-care (01) ==
LOC: PM 14:00
PROVIDERS: PCP Family Medicine; Visit Provider Anesthesiology
DX: M48.062 Spinal stenosis, lumbar region with neurogenic claudication (principal); M47.812 Spondylosis without myelopathy or radiculopathy, cervical region; M50.30 Other cervical disc degeneration, unspecified cervical region
CPT/HCPCS: G0463

== ENCOUNTER 2024-10-04 06:55 | Day surgery (SDC) | payer OTHER, SELFPAY ==
--- OUTSIDE RECORDS SUMMARY | 2024-10-04 06:59 | XMS_ITS | CCD ---
Author Organization [facility] ion [facility] Care Team Providers Care Mortar Carrier Name Role Phone Nahid Mccoy Unavailable AldoClarice guzman Unavailable Sami Marinelli Primary Care Physician [phone] Nicola BUCHANAN Attending Unavailable ISMAEL MENJIVAR Referring Unavailable SISSY, DR ABIGAIL Mc Consulting Unavailable LUL, DR GALLARDO Primary Care Unavailable LIDIA, DR CHAVARRIA Attending Unavailable LIDIA, DR CHAVARRIA Admitting Unavailable LIDIA, DR CHAVARRIA Consulting Unavailable LIDIA, DR CHAVARRIA Consulting Unavailable LUL, DR GALLARDO Referring Unavailable LUL, DR GALLARDO Primary Care Unavailable LIDIA, DR CHAVARRIA Attending Unavailable LIDIA, DR CHAVARRIA Admitting Unavailable ZIEBER, DR LUZ ELENA Fermin Consulting Unavailable EULA SMILEY Consulting Unavailable LIDIA, DR CHAVARRIA Procedure Practitioner Unavailab LUZ ELENA Rolle Consulting Unavailable MIRIANAMOLSIENNA Rodrigues Consulting Unavailable SAMI JONES Consulting Unavailable LUL, DR GALLARDO Primary Care Unavailable ISMAEL MENJIVAR Attending Unavailable ISMAEL MENJIVAR Admitting Unavailable LIDIA, DR CHAVARRIA Consulting Unavailable LUL, DR GALLARDO Primary Care Unavailable LIDIA, DR CHAVARRIA Attending Unavailable LIDIA, DR CHAVARRIA Admitting Unavailable LIDIA, DR CHAVARRIA Consulting Unavailable LUL, DR GALLARDO Primary Care Unavailable LIDAI, DR CHAVARRIA Attending Unavailable LIDIA, DR CHAVARRIA Admitting Unavailable LUL, DR GALLARDO Consulting Unavailable LUL, DR GALLARDO Primary Care Unavailable LIDIA, DR CHAVARRIA Attending Unavailable LIDIA, DR CHAVARRIA Admitting Unavailable LIDIA, DR CHAVARRIA Consulting Unavailable LUL, DR GALLARDO [...] MENJIVAR Admitting Unavailable ISMAEL MENJIVAR Consulting Unavailable NON STAFF Primary Care Provider UnavailDO Dedrick Alfaro Attending Provider [phone] Nicola Neff Attending Unavailab Nicola Anderson Admitting Unavailab SAMI Matos Primary Care Unavailable NON STAFF Primary Care Provider Unavailsalome Fuller [facility] Ded[facility] Attending Provider Alina [facility] Attending [facility]available [facility] Unavailable NON STAFF Primary Care Unavailable Sami Marinelli MD Primary Care Provider [phone] Marek BURK, Hebert [place] Attending Unavailable JESSICA SANCHEZ Attending Unavailable DELGADO MURILLO Attending Unavailable CAROL WEBB Attending Unavailable EDWIGE MAGAÑA Referring Unavailable DELGADO MURILLO Attending Unavailable Allergies Allergy Classification Reported Allergen(s) Allergy Type Date of Onset Reaction(s) Facility (7 sources) NITROFURANTOIN, MACROCRYSTALS / Nitrofurantoin, Monohydrate; 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: [nitrofurantoin] Drug Allergy Neck swelling (finding) [facility] (1 source) Albuterol Drug Allergy [facility] Comment on above: NEED TO CUT DOWN ADR ENALIN TO PREVENT SEIZURES (2 sources) Bee/Wasp/Ant venom; 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: [Bee Stings] Allergy to substance Nausea, Swelling [facility] (1 source) PECANS 1 Food allergy [facility] Comment on above: AIRWAY CONSTRICTION (5 sources) Albuterol; 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: [albuterol] Drug Allergy 06-26-20 23 Other [facility] Repository (1 source) Egg; 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: [Eggs] Food allergy (disorder) [facility] Repository (4 sources) Nitrofurantoin; 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: [Macrobid] Drug Allergy 05-02-20 12 [facility] Repository (1 source) PECANS; 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: [PECANS] Food allergy (disorder) [facility] Repository (2 sources) bee venom Drug allergy (disorder) 06-09-20 15 [facility] Repository (2 sources) egg extract Drug Allergy 06-09-20 15 [facility] Repository (2 sources) pecan pollen extract Drug Allergy [facility] Repository (2 sources) tree nut, unspecified Drug allergy (disorder) 06-09-20 15 [facility] Repository (1 source) Nitrofurantoin Drug Allergy 10-01-20 22 [facility] Repository (3 sources) Honey bee venom Allergy to substance 04-05-20 24 [facility] (3 sources) Nitrofurantoin Drug Allergy 05-01-20 18 Swelling [facility] (3 sources) Nitrofurantoin Drug Allergy 04-05-20 24 [facility] (3 sources) Egg-Derived Products Drug Allergy 04-05-20 24 [facility] (3 sources) Other Propensity to adverse reactions 05-13-20 05 [facility] Medications Current Medications Medication Drug Class(es) Dates Sig (Normalized) Sig (Original) ALPRAZolam 0.25 mg oral tablet (10 sources) Benzodiazepine Start: 02-03-2023 take 1 tablet [...] Active doxepin hydrochloride 10 mg oral capsule (3 sources) Tricyclic Antidepressant Start: take 1 capsule by mouth at bedtime doxepin (SINEquan) 10 MG capsule Take 10 mg by mouth at bedtime. 06/09/2023 Active fluconazole 150 mg oral tablet (3 sources) Azole Antifungal Start: take 1 tablet by mouth once [...] Status: Ordered meloxicam 15 mg oral tablet (10 sources) Nonsteroidal Anti-inflammatory Drug Start: take 1 tablet by mouth in the morning meloxicam (Mobic) 15 MG tablet Take 15 mg by mouth in the morning. 06/14/2023 Active Start: 10-30-2022 take 1 tablet by fernando once daily meloxicam 15 mg Tab 15 mg = 1 tab(s), Oral, Daily, Refills(s) 0 Start Date: 10/30/22 Status: Ordered metoprolol tartrate 50 mg oral tablet (3 sources) beta-Adrenergic Jeffrey Start: 05-17-2023 take 1 tablet by mouth in the morning metoprolol tartrate (Lopressor) 50 MG tablet Take 50 mg by mouth in the morning and 50 mg before bedtime. 05/17/2023 Active Multivitamin preparation (6 sources) take 1 tablet by mouth once daily Multivitamin - 1 tablet Orally Once a day Active omeprazole 40 mg delayed release oral capsule (10 sources) Proton Pump Inhibitor Start: 10-30-2022 take 1 capsule by mouth twice daily omeprazole 40 mg Cap-DR 40 mg = 1 cap(s), Oral, BID, Refills(s) 0 Start Date: 10/30/22 Status: Ordered take [address] capsule [address] [facility] every twenty-four hours Omeprazole 40 MG 1 cap(s) p.o. Once a da y Active phentermine hydrochloride 37.5 mg oral tablet (3 sources) Sympathomimetic Amine Anorectic Start: 06-13-2023 take [...] Aug, Active tiZANidine 4 mg oral tablet (3 sources) Central alpha-2 Adrenergic Agonist Start: 06-13-2023 [...] 2 Chronic Other aftercare (1 source) Other termite renewal inspector (current) drug therapy; 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: [OTH CURATOR ZOOLOGICAL MUSEUM CURRENT DRUG THERAPY] Onset: 2 Episodic Other [...] MDRD (S/P/Bld) [Vol rate/Area] mL/min/{1.73_m2} Normal The [facility]ending [facility] Comment on above: Performed By: #### L IPID, BMP #### [facility] [address] [place] [address] [place] Calcium [Mass/volume] in Ser um or PlasmaOrdered By: Dedrick Fuller on 08-30-2024 Calcium [Mass/Vol] 9.9 mg/dL Normal 8.6-10.3 [facility] Comment on above: Performed By: #### L IPID, BMP #### [facility] [address] [id number] [place] Carbon dioxide, total [Moles /volume] in Serum or PlasmaOrdered By: Dedrick Fuller on 08-30-2024 CO2 [Moles/Vol] 26.6 mmol/L Normal 21.0-31.0 [facility] Comment on above: Performed By: #### L IPID, BMP #### [facility] [address] [id number] [place] Chloride [Moles/volume] in S altagracia or PlasmaOrdered By: Dedrick Fuller on 08-30-2024 Chloride [Moles/Vol] 104 mmol/L Normal 98-107 [facility] Comment on above: Performed By: #### L IPID, BMP #### [facility] [address] [id number] [place] Cholesterol [Mass/volume] in Serum or PlasmaOrdered By: Dedrick Fuller on 08-30-2024 Cholesterol [Mass/Vol] 218 mg/dL High 140-200 [facility] Comment on above: Chol less than 200 m g/dl low riskChol 201-239 mg/dl borderline riskChol 240 mg/dl and greater high risk Result Comment: Chol less than 200 mg/dl low risk Chol 201-239 mg/dl borderline risk Chol 240 mg/dl and greater high risk Performed By: #### L IPID, BMP #### [facility] [address] [id number] [place] Cholesterol in LDL Calc [Mas s/Vol]Ordered By: Dedrick Fuller on 08-30-2024 Cholesterol in LDL [Mass/Vol] 134 mg/dL High 0-100 [facility] Comment on above: LDL ATP III CLASSIFI CATIONLDL less than 100 mg/dL OptimalLDL 100-129 mg/dL Near or above optimalLDL 130-159 mg/dL Borderline highLDL 160-189 mg/dL HighLDL greater than 189 mg/dL Very high Cholesterol in VLDL Calc [Ma ss/Vol]Ordered By: Dedrick Fuller on 08-30-2024 Cholesterol in VLDL [Mass/Vol] 46 mg/dL [facility] Creatinine [Mass/volume] in Serum or PlasmaOrdered By: Dedrick Fuller on 08-30-2024 Creatinine [Mass/Vol] 0.75 mg/dL Normal 0.60-1.[address] [facility] Comment on above: Performed By: #### L IPID, BMP #### [facility] [address] [id number] [place] Glucose [Mass/volume] in Ser um or PlasmaOrdered By: Dedrick Fuller on 08-30-2024 Glucose [Mass/Vol] 95 mg/dL Normal 70-100 [facility] Comment on above: ADA recommended refe rence rangeRandom Glucose Reference Range is dependent on time and content of last meal. Glucose of more than 200 mg/dL in a nonstressed, ambulatory subject supports the diagnosis of Diabetes Mellitus. Result Comment: [facility] Glucose Reference Range is dependent on time and content of last meal. Glucose of more than 200 mg/dL in a nonstressed, ambulatory subject supports the diagnosis of Diabetes Mellitus. ADA recommended reference range Performed By: #### L IPID, BMP #### [address] Lipid Panelon 08-30-2024 LDL Cholesterol,Calculated 134 mg/dL High 0-100 [facility] Comment on above: Result Comment: LDL ATP III CLASSIFICATION LDL less than 100 mg/dL Optimal LDL 100-129 mg/dL Near or above optimal LDL 130-159 mg/dL Borderline high LDL 160-189 mg/dL High LDL greater than 189 mg/dL Very high Performed By: #### L IPID, BMP #### [address] Triglyceride w/Reflex 231 mg/dL High 0-149 [facility] Comment on above: Result Comment: TRIG ATP III CLASSIFICATION TRIG less than 150 mg/dL Normal TRIG 150-199 mg/dL Borderline high TRIG 200-500 mg/dL High TRIG greater than 500 mg/dL Very high Standard traceable to the Center for Disease Conrtrol and Prevention (CDC) test method. Performed By: #### L IPID, BMP #### [address] VLDL CHOLESTEROL 46 mg/dL Normal [facility] Comment on above: Performed By: #### L IPID, BMP #### [address] No Panel InformationOrdered By: Dedrick Fuller on 08-30-2024 Estimated GFR (CKD-EPI) > 60.0 mL/Min [facility] Creatinine Clearance (Chem N/A [facility] Potassium [Moles/volume] in Serum or PlasmaOrdered By: Dedrick Fuller on 08-30-2024 Potassium [Moles/Vol] 4.1 mmol/L Normal 3.5-5.[address] [facility] Comment on above: Performed By: #### L IPID, BMP #### [facility] [address] [place] [address] Serum or plasma anion gap de terminationOrdered By: Dedrick Fuller on 08-30-2024 Anion gap [Moles/Vol] 13.5 mmol/L Normal 6.0-15.0 [facility] Comment on above: Performed By: #### L IPID, BMP #### [facility] [address] [place] [address] Serum or plasma high density lipoprotein (HDL) cholesterol measurementOrdered By: Dedrick Fuller on 08-30-2024 Cholesterol in HDL [Mass/Vol] 38 mg/dL Normal 23-92 [facility] Comment on above: HDL CHOL ATP-III CLA SSIFICATION Cardiovascular RiskHDL > or equal to 60 mg/dL LOWHDL < 40 mg/dL HIGH Result Comment: HDL CHOL ATP-III CLASSIFICATION Cardiovascular Risk HDL > or equal to 60 mg/dL LOW HDL < 40 mg/dL HIGH Performed By: #### L IPID, BMP #### [address] Serum or plasma total choles terol/high density lipoprotein (HDL) cholesterol mass ratOrdered By: Dedrick Fuller on 08-30-2024 Cholesterol.total/Mirta sterol in HDL [Mass ratio] 5.7 {ratio} Normal <5.0 [facility] Comment on above: Result Comment: PERF ORMED BY: [place] [address] PATHOLOGIST AUTOMATION TESTER IRMA MARCELO M.D. Performed By: #### L IPID, BMP #### [facility] [address] [place] [address] Sodium [Moles/volume] in Ser um or PlasmaOrdered By: Dedrick Fuller on 08-30-2024 Sodium [Moles/Vol] 140 mmol/L Normal 136-145 [facility] Comment on above: Performed By: #### L IPID, BMP #### [facility] [address] [place] [address] Triglyceride [Mass/volume] i n Serum or PlasmaOrdered By: Dedrick Fuller on 08-30-2024 Triglyceride [Mass/Vol] 231 mg/dL High 0-149 [facility] Comment on above: TRIG ATP III CLASSIF ICATIONTRIG less than 150 mg/dL NormalTRIG 150-199 mg/dL Borderline highTRIG 200-500 mg/dL High TRIG greater than 500 mg/dL Very highStandard traceable to the Center for Disease Conrtrol and Prevention (CDC) test method. Urea nitrogen [Mass/volume] in Serum or PlasmaOrdered By: Dedrick Fuller on 08-30-2024 Urea nitrogen [Mass/Vol] 18 mg/dL Normal 7-25 [facility] Comment on above: Performed By: #### L IPID, BMP #### [facility] [address] Coding Summaryon 03-19-2024 Coding Summary HTMLBase 64 QydwbuqcFGj3jRm+PGhlY WQ+ZK0XLTIvL77juTHfrK 7zN1CCBQaYBaajHZJRZSk OLeYcneUwXS8egHKcVPOq IC8+GR7eSZHwPgmajGOxd 2F3eWN7T91mql3iRHmjfB V3KJEjAhDrucdvb1tjhAd 6IDcuNmluOyBt QEXiiH67MXG5oM49Vd26q AKwnJCrf2fcgXj4HfDgYI FhOIR0nVqwYBnmg7QuYSD jB56tiIRyc2M9 DDWguAyrjSKqFqVtkPH3k K6jVZvghwpwb9kotvquQj n2se49hEAag3M5wOS6D8B mbqQ9DNZpeULi RhsfnHBFdX9pwmxzl4ukt hefUlTiHWTnCXi4PRu2SY ZsrCstFwFqPI95ZZT2HPP eenKfA0JwNDBe hLofCgF3h2A6Kf8ML4EDJ hwpC5INDKVMGSueoYG+PC 42yl78F6CsUtleQwy0ALI mNVH4sZV6jH7v VQNiDNyci6T8qUV1D5Fch mAzfo2ti2pdQKTtXVwlT5 7zsFWzq6X6RJMulWZ3OBE dzRwuHvNwuX20 Oyc+FHJsoKjco4FzIugxw 8zqu1ehnRj1VkwcQYUleg XxhDvlRJA8z9LbNb8kMID ikUD6nRY2sN4u TqGqCgM3GHffZ626FtRmd VBoYewpR82aG5PyhHK+PH YzZwk8NLUopXauAC7cJ6C hZGRpbmctbGVm hJxpSP9fPCQypdxzAPUdx E2gXCZkT1r0ArOeWtD5CF znO2LxFVCfnflpPx44hY5 lXaCwImX6OSjz H4UgqrG8WUKmqIWqFJmyX FI5L30kl5C4EHCvBVJtDG O8rML1nF9ehDzeellgbBH mdDsgdmVydGlj SSvmREbqX190XCAchJqwE kNvZGluZyBEYXRlOiAgMD QvMTkvMjAyNDwvdGQ+PHR tUVR3sCasSSMc aGScQPruYk8zyEcpwOxsP R6oZIKpewwfVREqdB0sEU RymYDezRmjIG3vINNkvvk wa418SyIlFNK7 SVQukKHmT6XksG5jTsXlF XDnCGLtQ8XhdRBbGXfmB6 41ASlfMwH0UUEzxvQqM3Z sLWFsaWduOiB0 x9M4Uy0Iq5SibrczN1Vur AFkSbTvWwbmYHa0Z4MiUo wvdHI+NC86MKVnFN56BXt 4EIF6dXqaMZpd KHRbK8PlzS0vSnEaSSHoG GRkOyc+PHRhYmxlIHdpZH RoPScxMDAlJyBzdHlsZT0 gYp3fSYSgRPYx qKpszKOfAeExl4faRKOtI KkkOU2xgNutJ6BojFI1MS Koz6i3Vh09K34bB3WieTD +KPWxaWW4oZT5 wR0mYuWpVdF0FPufV531W vChbLJxJjhtb3eoz8jmqR h9HhN4GKDeakFmoYsuSZT 5y0LyYj90A03r IHdpZHRoPSIxNSUiIHZhb Leboz8ohY5gJt9+PGNvbC X7rNI0xD0sFuRyIxX4NCq eF834HnSyvJWq Kgflu2bzz2egxMc6MkEiR JGsloUcpMgaTDH3l8KsOi 19U0KutSmxm2DbNft4tw9 6nQTkj5T2xZM0 Z9XoKPHmtlcsiEAkxNxaH Y1mDSAnoldkSJFlbD7kDU LgA6q7YsTdAeJ4GSpvV7A wufB3AIGlqKFc ECPwhPPEuS7ggscln5xtf ygvEuNiQZYrMHv6NCy0XG EjdGrzIiJlYRD7JyZ8SHH 7iRHvmC1voFux wazpvT3cZrb+MZX2gBMvh UGPHZ9kSylivOM+PHRkIH Q2iFmwVIpzLRQvsS5xVZO iH6s9OlHnOdC4 XMbyQ8HtsqF3AMCfmAEtV REirDKCiP7rpctun8aupj plTcKbOBYoNJv2VBp0FDP saWduOiBsZWZ0 YeT4LXL2nPYynH2fmHuic lqmwE5nGvw+QmlydGggRG F1SVb3T9HjBoj3IWEypPh eOP2doGLcMMmu Qe9tpVarmVpkMH1vSTMam dehp185TbOnb0yvKWDiiW FtEDvsWHP4M45oy7E3IWK jUTGfQWP4oPP8 oI7dnFaerqcxaGTkxVmdd cVgoTsgTVtxQOtuJ811CK OqzXwiDcTxNZu7P0DpBpa 9AMRjjUhhRO1w gYTpQTocBy9zaTraiGhoD A5dGMLocqope069FtKhx8 caPPMeoPVnFJopSFL9N41 ak2P5PJEdGVZg RVC5aNY7qR3yyRjznmwca GVmdDsgdmVydGljYWwtYW aeJ592VPUynWlmRoNrjCa 2J6OkLtj7IQLv pAlnCN1caNMiZVnxLq4vf ZsfpRjfOV4uVZLneegkh6 67WvHjw8tqEYJtfAKgDMl gSVM6D51id1X8 HXGeZQGfDUT6qLA9mS8pz GlnbjogbGVmdDsgdmVydG flIGeeWCtvD011CBRdsBy nPlBhdGllbnQg HBlpGDh6B2YwPfpdjJA+P P83RUWlRZ44wWLkuQRdh3 iozXu0NgPwYEMyUCZ3hFo vBYvjc1SdCOHm C61lqLUyu8O3JSYocQavs DRwTyPjxNI1jL8gSZzrya sgm5ckerwtYmoho7nyzi3 6fC86Q51zSDwa ZHRoPSIzMCUiIHZhbGlnb l9dbW0xGp8+MMMcfNI7lG A4mI7lBBExOoE0FTcpZ61 9InRvcCIvPjxj k4nce5ijsVn4CkX1ATXjm jCgbNjhOPR9l7DqLu80Q8 9sIHdpZHRoPSIyMCUiIHZ yrCflbr3udZ6i Ii8+ETBjzDN2rAC3yU5aY rFePhC8MMraJ991AcUgkE OgYlroN99kP1BzyWP+PHR yAsu5PFRgjNxl TW9rlYEkRObhWj0tVXR9L uQqBzDaSMetF0VqKQFcno auvanauKK5QXQiGPJbjQ8 9Uq6teJvwKRMz oSXWaI9bzwhbe7irwhvlF gBcHELsCOa7SKg5AZJubV zhHzMvNGQ5TeC8ZYD6uDF qdU6voDmlabql xS9qR2ZxCTKwhstxOa81j E0cOhCnAaI0VXssTvy+Q0 2VAQZCAKEPCOGEOD8FKT2 VH54EGSvlrXY+ YYQaRGM6xSsnYZglKKRjy S4iXSOgD4a4TyNlAyY9NO brE1PySWJeydcyQh49xQ0 tGtWnWoW6CJpd R5DrjuE3NWNavWDpAAegG KI3T44cr0Y5LIVtRMMaKQ P9tBL2fU3ahEwfrqmqbCL mdDsgdmVydGlj XMvzCAvkG522ZPYebAyxA fU6MpL0PuP8DyM0Y1MxCz b0SYFppXluSG4lvWHpHMf jRn7lwEipkHuq XS7hNDFgnymwYKLqvP3aJ EPgrGUceOwfRA0fZOJqxx mpt721FvXkYTG5SUBugKA aQ0FsvJ2fUzZd YASuDQTyP2OvrBNxLUmcZ 597JDspOgM4UYKklfZsE3 FjELTlcRnmOhN3t8K1Fc0 0NyBZZWFyczwv dGQ+RSRlZSJ1zZasRIxoY ERruM2yVNUlN6l7PlXzYg J5JYnmV0RdDOOikwlpKq0 5eS9gLfEsEmZ1 LXtjG5XzgiZ2KKZosPSmC OerCFT1T40dy0C4UQVkEQ TvNND4nUU0fT0abSkirjn gbGVmdDsgdmVy uVdgHVvqTLzoY776TEIrv DsnPkZFTUFMRTwvdGQ+PH PuCPO7bGmzBVitOXSohN8 kBAQqA5m3GyKo YgX1WOraC9OaSGDaunyoL f91mY9uQhYgBiK3GTsqQ9 HnhtX1KTWrwLRzOLusPPS 2I92hi4N5LJWu YWHgXZT0tAQ9kT4ifDzva jogbGVmdDsgdmVydGljYW avGBzbN866ZNPtiZujIcV cPRCmDW3xjLrs dGQ+IP03se70P2FdXtxdT tp4OMKmIZH9xKX2mS7tJL KzDTqve6R3aSF1B2EdycQ bbr0gz7qeHNZx TJtcT43lmLHnd2X1HHNxh QV8XLQvuSyrBrVjfI71Od c+WARqmYsqd0ZtAblet6g hx7cggYz5IkCe QNPtaaLsvLamRRX7j0MiW z25W02uFPhfHRGzERVlLQ MfSUYpsJhanw7iwL0fWj5 +SRStuNM1aQF6 uA7sLiYhZtB5XXosO481W cSvmNHpUhdwf7vjy8kkzZ e1TwTsJWYaxtAvnAcwQQU 9g6ThGi25A0Gn cWyhq2HrSzj9ai12dVBlv 8J9vJH1H8XjHLOefsxwjU NqrIioEO1jBLIhxapeIQB eiL8aCKEmH4q4 OdIzCaV1SSlyD6XjqkA6Y OEfsCFhZHNjnRDEkL5vur xva0apxxxhRlDfXTLwPWp 8OFi9NDJmhLfm BaAvXXX1QcZ7OFE2wVFxu B6hcJilykoleZ4sKja+UG b9w3ficIIvAK8vxII2SM7 0HD57bBIas6G3 hLE9X0LvSDJnzgdswsnxv QO2JUVhBEWzuN90Um1rnJ qbDj3gSYZoQII3KAAfcMK zL1HqvS6lSkSg JBJjUMCdJ9PwlTZgZHweK 419NFoyDmS2YJWrfrLiW7 NfHDUgkStvVzJ2n1E0Xz3 DQY62KK40YO36 iGPxa2Z7xIA4J2ArPXGti tsgwwkrvUH8NKAdNPEibV 84Pm3jiGtyUi4pYXUuBBL 0AOLhmEFzR8Js zK2bImZcTVJjAHMwN1Qle BHdUTugC534IEvaDhO5DK KjfbExP1FvUOJhqAngXzT 9s9L6Vh5NTw40 NL64BH37hHNvq8R7vIQ1M 8LhKKDdulnwdxjvyHQ5SQ DpCNJkgV46Od0tuIbhSc0 vBXExWLQ1CIJa hSIxZ2AbzS9nWnSwTTKjG ZOjP5WpxYZfVYsfQ150MS vtUtV7NTQtuuErN2SyQVA gzAnyAoO3z2I9 Ed8POWeccyb1Z9OcJlcax HI+SP10XEBbYY75jXTwxK Ydp2dbdZa1SjHpWULaCAX 2dNkiFQgpd0Au ZXI (more content not included)... Normal [facility] Noteon 03-17-2024 Ambulance Note [id number] 1 [id number]#[id number] OTGTIFF [facility] C Urineon 03-17-2024 C Urine Urine Culture ordere d as a result of parameters set on specific urine dip and urine microsopic results. >100,000 cfu/ml Lactobacillus species Normal vaginal oleg isolated 10,000 cfu/ml Corynebacterium species (DIPTHEROID) No YOLANDE performed on this organism No pathogens isolated [facility] Comment on above: Performed By: #### 5 [id number] ####[facility] (DEFAULT)[address] [place] [address] .Auto Diff 1on 03-15-2024 Auto [place] % 3 % Normal 12-12 [facility] Comment on above: Performed By: #### 5 [id number], [id number], [id number], [id number], [id number] #### [facility] (DEFAULT) [address] [place] [address] Baso Abs# 0.1 x10 Normal 0.0-0.2 [facility] Comment on above: Performed By: #### 5 [id number], [id number], [id number], [id number], [id number], [id number] #### [facility] (DEFAULT) [address] [place] [address] Basophils/100 WBC (Bld) 0.7 % Normal 0.2-2.0 [facility] Comment on above: Performed By: #### 5 [id number], [id number], [id number], [id number], [id number], [id number] #### [facility] (DEFAULT) [address] [place] [address]287 Eos Abs# 0.1 x10 Normal 0.0-0.4 [facility] Comment on above: Performed By: #### 5 [id number], [id number], [id number], [id number], [id number], [id number] #### [facility] (DEFAULT) [address] [place] [address] 25543 Eosinophils/100 WBC (Bld) 0.7 % Low 0.9-4.0 [facility] Comment on above: Performed By: #### 5 [id number], [id number], [id number], 73672622, 8226008925, 9446889, 6766718 #### [facility] (DEFAULT) [address] [place] [address] 19183 Lymph Abs# 2.2 x10 Normal 1.3-2.9 [facility] Comment on above: Performed By: #### 5 [id number], [id number], [id number], 16094874, [id number], 8029336, 1690975 #### [facility] (DEFAULT) [address] [place] [address] 44164 Lymphocytes/100 WBC (Bld) 14 % Normal 14-48 [facility] Comment on above: Performed By: #### 5 [id number], [id number], [id number], 13965905, 9233878554, 9342905, 3843366 #### [facility] (DEFAULT) [address] [place] [address] [place] Abs# 0.5 x10 Normal 0.0-0.8 [facility] Comment on above: Performed By: #### 5 [id number], [id number], [id number], 14984783, 1768451734, 1829593, 9888124 #### [facility] (DEFAULT) [address] [place] [address] Neut Abs# 13.5 x10 High 1.5-9.2 [facility] Comment on above: Result Comment: Slid e Reviewed Performed By: #### 5 [id number], [id number], [id number], 55132984, 7507628733, 8744733, 1750108 #### [facility] (DEFAULT) [address] [place] [address] Neutrophils/100 WBC (Bld) 82 % Normal 44-88 [facility] Comment on above: Performed By: #### 5 [id number], [id number], 1400341117, 44898073, 9096250712, 4644263, 9853396 #### [facility] (DEFAULT) [address] [place] [address] CBC w/ Auto Diffon 4 Erythrocyte distribution width (RBC) [Ratio] 13.3 % Normal 11.5-15.0 [facility] Comment on above: Performed By: #### 5 [id number], [id number], 1504715056, 19606578, 1022100145, 4721860, 0126081 #### [facility] (DEFAULT) [address] [place] [address] Hematocrit (Bld) [Volume fraction] 45.0 % High 33.7-40.4 [facility] Comment on above: Performed By: #### 5 [id number], [id number], [id number], 94935767, 1416935853, 5645349, 0622005 #### [facility] (DEFAULT) [address] [place] [address] 24086 Hemoglobin (Bld) [Mass/Vol] 15.0 g/dL Normal 11.3-15.9 [facility] Comment on above: Performed By: #### 5 [id number], [id number], 1176700598, 04788447, 7329388306, 0372446, 3882180 #### [facility] (DEFAULT) [address] [place] [address] Man Diff? Auto Invalid Interpretation Code [facility] Comment on above: Performed By: #### 5 [id number], [id number], [id number], 73571371, 4044101016, 2766371, 6158004 #### [facility] (DEFAULT) [address] [place] [address] 09382 MCH (RBC) [Entitic mass] 32 pg Normal 24-34 [facility] Comment on above: Performed By: #### 5 [id number], [id number], 6687482654, 84816530, 6833439062, 4879338, 8131273 #### [facility] (DEFAULT) [address] [place] [address] 75377 MCHC (RBC) [Mass/Vol] 33 g/dL Normal 26-37 [facility] Comment on above: Performed By: #### 5 [id number], [id number], 6376010227, 42790195, 4685179012, 8912012, 7846078 #### [facility] (DEFAULT) [address] [place] [address] 38948 MCV (RBC) [Entitic vol] 95 fL Normal 81-100 [facility] Comment on above: Performed By: #### 5 [id number], [id number], 8051561342, 58625427, 6481074796, 2903640, 4025630 #### [facility] (DEFAULT) [address] [place] [address] 25845 Platelet 292 x10 Normal 138-427 [facility] Comment on above: Performed By: #### 5 [id number], [id number], 3253878401, 82895556, 5936857108, 2333005, 7456630 #### [facility] (DEFAULT) [address] [place] [address] 88707 Platelet mean volume (Bld) [Entitic vol] 8.7 fL Normal 6.3-10.2 [facility] Comment on above: Performed By: #### 5 [id number], [id number], 1807073296, 67257088, 7846007081, 9044841, 1078617 #### [facility] (DEFAULT) [address] [place] [address] RBC 4.74 x10 Normal 3.70-5.30 [facility] Comment on above: Performed By: #### 5 [id number], [id number], 5032364998, 94920605, 8015656407, 0441155, 4604749 #### [facility] (DEFAULT) [address] [place] [address] WBC 16.4 x10 High 3.5-10.5 [facility] Comment on above: Performed By: #### 5 [id number], 3829882378, 9524412373, 38840102, 8297293468, 3601025, 0306651 #### [facility] (DEFAULT) [address] [place] [address] 92043 CMP Standardon 03-15-2024 eGFR Non AA >60 Invalid Interpretation Code [facility] Comment on above: Performed By: #### 5 [id number], [id number], 8594888043, 69363799, 3115059667, 7622871, 7506776 #### [facility] (DEFAULT) [address] [place] [address] 72192 eGFR AA >60 Invalid Interpretation Code [facility] Comment on above: Performed By: #### 5 [id number], 0654534862, 6572353629, 87656507, 3794027108, 3532022, 3020370 #### [facility] (DEFAULT) [address] [place] [address] 38890 Albumin [Mass/Vol] 4.1 g/dL Normal 3.5-5.0 [facility] Comment on above: Performed By: #### 5 [id number], 9994004030, 3299214687, 43680102, 3351829366, 2450686, 6163324 #### [facility] (DEFAULT) [address] [place] [address] 58518 Albumin/Globulin [Mass ratio] 1.3 {ratio} Low 1.4-2.6 [facility] Comment on above: Performed By: #### 5 [id number], 4368894815, 4510675973, 66262107, 6308122574, 3722514, 9311928 #### [facility] (DEFAULT) [address] [place] [address] Alk Phos 39 IU/L Normal 32-91 [facility] Comment on above: Performed By: #### 5 [id number], 7746248570, 1114681965, 19075734, 6437142598, 9168672, 7587011 #### [facility] (DEFAULT) [address] [place] [address] ALT [Catalytic activity/Vol] 32.0 U/L Normal 14.0-54.0 [facility] Comment on above: Performed By: #### 5 [id number], 4513689794, 5865636027, 44665498, 0315407838, 7606966, 0897246 #### [facility] (DEFAULT) [address] [place] [address] 14909 Anion gap [Moles/Vol] 13.0 mmol/L Normal 5.0-19.0 [facility] Comment on above: Performed By: #### 5 [id number], 4110583921, 8246763532, 24654126, 4919722924, 6280540, 1839009 #### [facility] (DEFAULT) [address] [place] [address] 34014 AST [Catalytic activity/Vol] 25 U/L Normal 15-41 [facility] Comment on above: Performed By: #### 5 [id number], 6641595685, 6659161039, 54807550, 8299149828, 5582812, 7064263 #### [facility] (DEFAULT) [address] [place] [address] 31018 Bili Total 1.4 mg/dL High 0.3-1.2 [facility] Comment on above: Performed By: #### 5 [id number], 2106307794, 3191855407, 20252158, 1578061475, 2178046, 3485354 #### [facility] (DEFAULT) [address] [place] [address] 81692 Calcium [Mass/Vol] 8.8 mg/dL Low 8.9-10.3 [facility] Comment on above: Performed By: #### 5 [id number], 7206723312, 1264240895, 36424444, 4255966350, 6086487, 1282056 #### [facility] (DEFAULT) [address] [place] [address] 50089 Chloride [Moles/Vol] 105 mmol/L Normal 101-111 [facility] Comment on above: Performed By: #### 5 [id number], 9517073104, 6216665827, 23254821, 7646455231, 6377443, 1009033 #### [facility] (DEFAULT) [address] [place] [address] 21297 CO2 [Moles/Vol] 24 mmol/L Normal 21-32 [facility] Comment on above: Performed By: #### 5 [id number], 9752003022, 9589819642, 33106325, 8261549432, 8204464, 7884062 #### [facility] (DEFAULT) [address] [place] [address] 22083 Creatinine [Mass/Vol] 0.72 mg/dL Normal 0.60-1.30 [facility] Comment on above: Performed By: #### 5 [id number], 6309950837, 7255367112, 05702681, 6626888135, 5908935, 6635450 #### [facility] (DEFAULT) [address] [place] [address] 80013 Globulin (S) [Mass/Vol] 3.0 g/dL Normal 1.5-4.3 [facility] Comment on above: Performed By: #### 5 [id number], 9597430422, 3893818301, 51222637, 0408251885, 8569046, 0133078 #### [facility] (DEFAULT) [address] [place] [address] 15505 Glucose [Mass/Vol] 124.0 mg/dL High 74.0-118.0 [facility] Comment on above: Performed By: #### 5 [id number], 8858606377, 0825026201, 42670050, 6598165858, 6038288, 3922648 #### [facility] (DEFAULT) [address] [place] [address] 13772 Osmolality 278 mOsm/L Invalid Interpretation Code [facility] Comment on above: Performed By: #### 5 [id number], 7632070906, 2440266014, 58107315, 0856962490, 6492882, 8734813 #### [facility] (DEFAULT) [address] [place] [address] 30921 Potassium [Moles/Vol] 4.0 mmol/L Normal 3.6-5.1 [facility] Comment on above: Performed By: #### 5 [id number], 9671421775, 5785204124, 00775568, 8211908356, 3729565, 8566445 #### [facility] (DEFAULT) [address] [place] [address] 43362 Protein [Mass/Vol] 7.1 g/dL Normal 6.5-8.1 [facility] Comment on above: Performed By: #### 5 [id number], 7108235650, 3729960470, 45615715, 7706176120, 8950914, 2639786 #### [facility] (DEFAULT) [address] [place] [address] 92481 Sodium [Moles/Vol] 138.0 mmol/L Normal 136.0-144.0 [facility] Comment on above: Performed By: #### 5 [id number], 4220275612, 0255675785, 12546516, 4734912886, 6963267, 8298937 #### [facility] (DEFAULT) [address] [place] [address] 45487 Urea nitrogen [Mass/Vol] 15 mg/dL Normal 8-26 [facility] Comment on above: Performed By: #### 5 [id number], 2089669225, 4351078151, 45175048, 0815314752, 2175536, 3389132 #### [facility] (DEFAULT) [address] [place] [address] 58313 Urea nitrogen/Creatinine [Mass ratio] 20.8 mg/mg High 4.6-16.2 [facility] Comment on above: Performed By: #### 5 [id number], 2478680191, 8439720849, 88253637, 8607123202, 7589632, 9709519 #### [facility] (DEFAULT) [address] [place] [address] 98956 Breakpoint Chem Normal [facility] Comment on above: Performed By: #### 5 [id number], 3220563243, 0734660914, 13649806, 7512371492, 1111622, 1294393 #### [facility] (DEFAULT) [address] [place] [address] 28625 ED Clinical Summaryon 2023 ED Clinical Summary [facility] - Emergency Department [address] [place] [address] 64735 ED Clinical Summary PERSON INFORMATION Name: HORACIO KEATING Age: 48 Years Sex: FEMALE : 1975 MRN: Acct#: Visit Reason: Shortness of breath; Anxiety; Blood pressure check; SOB Arrival: 03/15/2024 17:56:51 Discharge: 03/15/2024 20:31:00 LOS: 000 02:35 Check In: 03/15/2024 17:56:51 Checkout:03/15/2024 20:31:00 Address: [address] [place] [address] PCP: SAMI MARINELLI PROVIDER INFORMATION Provider Role [...] Physical Exa (more content not included)... [facility] ED Note - Physicianon 2023 ED [...] lymphadenopathy. Psychiatric: (more content not included)... [facility] ED Note-Nursingon 03-15-2024 ED Note-Nursing Patient presents to the ER via [facility] for shortness of breath, anxiety. Patient [...] 12 lead was regular in rate [facility] ED Patient Summaryon 024 ED Patient Summary [facility] - Emergency Department [address] [place] [address] 02800 PATIENT DISCHARGE INSTRUCTIONS Patient Information Name: HORACIO KEATING Age: 48 Years Date of : 1975 Reason For Visit: Shortness of breath; Anxiety; Blood pressure check; SOB Arrival Time: 03/15/2024 17:56:51 Primary Care Physician: SAMI MARINELLI Attending Physician: Nicola Neff DO Comment: Visit Diagnosis: Diagnoses This Visit Anxiety ([id number]) Blood pressure check ([id number]) Hypertension (I10) Panic attack (F41.0) Shortness of breath ([id number]) Urinary tract infection (N39.0) The Pharmacy at [facility] is open Friday through Friday from [...] alcohol and/or drug addiction problems; contact the [facility] 23/06 Crisis Hotline -Text 4ZRVB ex [phone]. If you received any narcotics, sedation, or [...] legal documents With: Address: When: SAMI MARINELLI [address] [place] [address] [address] [place] [phone] Business (1) Within 3 to 5 days Comments: Call for follow up appointment Return if symptoms worsen Medication Information: The exam and treatment you received today in the [facility] Emergency Department were for an urgent problem and are not intended as complete care. It is important for you to follow up with a doctor, nurse practitioner, or physician?s news production assistant for ongoing care. If your symptoms [...] so we can reach you if necessary. [facility] has provided you with a complete list of medications post discharge. Please inform your ocean transportation intermediary/provider of your visit and for further instruction [...] Vitals an (more content not included)... Normal [facility] Extra Greenon 03-15-2024 Tube Collected Yes Invalid Interpretation Code [facility] Comment on above: Performed By: #### 5 [id number], [id number], 5467085387, 80410556, 1684223626, 3166174, 1587266 #### [facility] (DEFAULT) [address] [place] [address] 20426 Extra Redon 03-15-2024 Tube Collected Yes Invalid Interpretation Code [facility] Comment on above: Performed By: #### 5 [id number], [id number], 3274313101, 05486046, 2698417781, 6726808, 4509185 #### [facility] (DEFAULT) [address] [place] [address] 14752 PTon 03-15-2024 INR Coag (PPP) [Relative time] 0.94 {INR} Normal 0.91-1.11 [facility] Comment on above: Performed By: #### 5 [id number], 1498096794, 7341132918, 80344069, 0526888383, 5797699, 3994722 #### [facility] (DEFAULT) [address] [place] [address] 93482 PT 9.8 second(s) Normal 9.7-11.8 [facility] Comment on above: Performed By: #### 5 [id number], 6930098877, 0109474907, 76468036, 3544747512, 7786132, 5729152 #### [facility] (DEFAULT) [address] [place] [address] 09776 TnI HSon 03-15-2024 Troponin I High Sensitivity 7.7 pg/mL Normal <=15.0 [facility] Comment on above: Performed By: #### 5 [id number], 0624006144, 8643337377, 70809190, 0761168470, 6600451, 9913172 #### [facility] (DEFAULT) [address] [place] [address] UA Wkigr3tt 03-15-2024 UA Amorph. 1+ [facility] Comment on above: Order Comment: Urina lysis Microscopic order added on by Discern Expert Rules system. Performed By: #### 5 [id number], 3039712254, 1297861 ####[facility] (DEFAULT)[address] [place] [address] UA Bacteria 3+ Normal [facility] Comment on above: Order Comment: Urina lysis Microscopic order added on by Discern Expert Rules system. Performed By: #### 5 [id number], 6104187221, 7335448 ####[facility] (DEFAULT)[address] [place] [address] UA Mucous 1+ [facility] Comment on above: Order Comment: Urina lysis Microscopic order added on by Discern Expert Rules system. Performed By: #### 5 [id number], [id number], 9634417 ####[facility] (DEFAULT)[address] [place] [address] UA RBC 3-5 [facility] Comment on above: Order Comment: Urina lysis Microscopic order added on by Discern Expert Rules system. Performed By: #### 5 [id number], [id number], 0143406 ####[facility] (DEFAULT)[address] [place] [address] UA Renal Epi Rare Normal [facility] Comment on above: Order Comment: Urina lysis Microscopic order added on by Discern Expert Rules system. Performed By: #### 5 [id number], 1155418746, 8479908 ####[facility] (DEFAULT)[address] [place] [address] UA Squam Epi Many [facility] Comment on above: Order Comment: Urina lysis Microscopic order added on by Discern Expert Rules system. Performed By: #### 5 [id number], 7167813809, 2305340 ####[facility] (DEFAULT)[address] [place] [address] UA WBC 3-5 Normal [facility] Comment on above: Order Comment: Urina lysis Microscopic order added on by Discern Expert Rules system. Performed By: #### 5 [id number], 8927368948, 5245528 ####[facility] (DEFAULT)[address] [place] [address] UA w Culture if Ind Standard on 03-15-2024 Breakpoint UA [facility] Comment on above: Performed By: #### 5 [id number], 2281303463, 4158992 ####[facility] (DEFAULT)[address] [place] [address] Color (U) Yellow [facility] Comment on above: Performed By: #### 5 [id number], 1687650093, 7776234 ####[facility] (DEFAULT)[address] [place] [address] Culture? Indicated Invalid Interpretation Code [facility] Comment on above: Result Comment: Resu lt created by rule GL_MAGR_ADD_UA_CULT Result created by rule GL_MAGR_ADD_UA_CULT Result created by rule GL_MAGR_ADD_UA_CULT1 Result created by rule GL_MAGR_ADD_UA_CULT Performed By: #### 5 [id number], [id number], 4115270 ####[facility] (DEFAULT)[address] [place] [address] Glucose (U) [Mass/Vol] Negative [facility] Comment on above: Performed By: #### 5 [id number], 0327348373, 4388304 ####[facility] (DEFAULT)[address] [place] [address] 48793 Ketones Ql (U) Negative [facility] Comment on above: Performed By: #### 5 [id number], [id number], 4289524 ####[facility] (DEFAULT)[address] [place] [address] 79507 Micro? Indicated Invalid Interpretation Code [facility] Comment on above: Result Comment: Resu lt created by rule GL_MAGR_ADD_UA_MICRO Performed By: #### 5 [id number], [id number], 0244396 ####[facility] (DEFAULT)[address] [place] [address] 64916 UA Bilirubin Negative Normal [facility] Comment on above: Performed By: #### 5 [id number], 8511505561, 0547723 ####[facility] (DEFAULT)[address] [place] [address] 00948 UA Blood TRACE Abnormal NEGATIVE [facility] Comment on above: Performed By: #### 5 [id number], [id number], 5323289 ####[facility] (DEFAULT)[address] [place] [address] 77380 UA Clarity SL CLOUDY Abnormal CLEAR [facility] Comment on above: Performed By: #### 5 [id number], [id number], 7645173 ####[facility] (DEFAULT)[address] [place] [address] 00427 UA Leuk Est LARGE Abnormal NEGATIVE [facility] Comment on above: Performed By: #### 5 [id number], [id number], 5671334 ####[facility] (DEFAULT)[address] [place] [address] 73881 UA Nitrite Negative Normal NEGATIVE [facility] Comment on above: Performed By: #### 5 [id number], [id number], 2865598 ####[facility] (DEFAULT)[address] [place] [address] 95428 UA pH 6.0 Normal 5-8 [facility] Comment on above: Performed By: #### 5 2894240, [id number], 7750950 ####[facility] (DEFAULT)[address] [place] [address] 76651 UA Protein Negative Normal NEGATIVE [facility] Comment on above: Performed By: #### 5 [id number], [id number], 4370469 ####[facility] (DEFAULT)[address] [place] [address] 15177 UA Spec Grav 1.015 Normal 1.001-1.035 [facility] Comment on above: Performed By: #### 5 [id number], 1909707670, 2746975 ####[facility] (DEFAULT)[address] [place] [address] 48019 UA Urobilinogen 0.2 mg/dL Normal 0.2-1.0 [facility] Comment on above: Performed By: #### 5 [id number], [id number], 3415871 ####[facility] (DEFAULT)[address] [place] [address] Urine Source Clean Catch [facility] Comment on above: Performed By: #### 5 [id number], [id number], 4202674 ####[facility] (DEFAULT)[address] [place] [address] XR Chest 1 View Frontalon XR Chest [...] 03/15/24 7:34 pm Technologist: Lizzy BRICEÑO [facility] Calcium [Mass/volume] in Ser um or PlasmaOrdered By: Dedrick Fuller on 08-15-2023 Calcium [Mass/Vol] 9.1 mg/dL 8.6-10.3 [facility] Carbon dioxide, total [Moles /volume] in Serum or PlasmaOrdered By: Dedrick Fuller on 08-15-2023 CO2 [Moles/Vol] 26.7 mmol/L 21.0-31.0 [facility] Chloride [Moles/volume] in S altagracia or PlasmaOrdered By: Dedrick Fuller on 08-15-2023 Chloride [Moles/Vol] 107 mmol/L 98-107 [facility] Cholesterol [Mass/volume] in Serum or PlasmaOrdered By: Dedrick Fuller on 08-15-2023 Cholesterol [Mass/Vol] 166 mg/dL 140-200 [facility] Comment on above: Chol less than 200 m g/dl low riskChol 201-239 mg/dl borderline riskChol 240 mg/dl and greater high risk Cholesterol in LDL Calc [Mas s/Vol]Ordered By: Dedrick Fuller on 08-15-2023 Cholesterol in LDL [Mass/Vol] 95 mg/dL 0-100 [facility] Comment on above: LDL ATP III CLASSIFI CATIONLDL less than 100 mg/dL OptimalLDL 100-129 mg/dL Near or above optimalLDL 130-159 mg/dL Borderline highLDL 160-189 mg/dL HighLDL greater than 189 mg/dL Very high Cholesterol in VLDL Calc [Ma ss/Vol]Ordered By: Dedrick Fuller on 08-15-2023 Cholesterol in VLDL [Mass/Vol] 32 mg/dL [facility] Creatinine [Mass/volume] in Serum or PlasmaOrdered By: Dedrick Fuller on 08-15-2023 Creatinine [Mass/Vol] 0.77 mg/dL 0.60-1.[address] [facility] Glucose [Mass/volume] in Ser um or PlasmaOrdered By: Dedrick Fuller on 08-15-2023 Glucose [Mass/Vol] 97 mg/dL 70-100 [facility] Comment on above: ADA recommended refe rence rangeRandom Glucose Reference Range is dependent on time and content of last meal. Glucose of more than 200 mg/dL in a nonstressed, ambulatory subject supports the diagnosis of Diabetes Mellitus. No Panel InformationOrdered By: Dedrick Fuller on 08-15-2023 Estimated GFR (CKD-EPI) > 60.0 mL/Min [facility] Creatinine Clearance (Chem N/A [facility] Potassium [Moles/volume] in Serum or PlasmaOrdered By: Dedrick Fuller on 08-15-2023 Potassium [Moles/Vol] 4.0 mmol/L 3.5-5.[address] [facility] Serum or plasma anion gap de terminationOrdered By: Dedrick Fuller on 08-15-2023 Anion gap [Moles/Vol] 10.3 mmol/L 6.0-15.0 [facility] Serum or plasma high density lipoprotein (HDL) cholesterol measurementOrdered By: Dedrick Fuller on 08-15-2023 Cholesterol in HDL [Mass/Vol] 39 mg/dL 23-92 [facility] Comment on above: HDL CHOL ATP-III CLA SSIFICATION Cardiovascular RiskHDL > or equal to 60 mg/dL LOWHDL < 40 mg/dL HIGH Serum or plasma total choles terol/high density lipoprotein (HDL) cholesterol mass ratOrdered By: Dedrick Fuller on 08-15-2023 Cholesterol.total/Mirta sterol in HDL [Mass ratio] 4.3 {ratio} <5.0 [facility] Sodium [Moles/volume] in Ser um or PlasmaOrdered By: Dedrick Fuller on 08-15-2023 Sodium [Moles/Vol] 140 mmol/L 136-145 [facility] Triglyceride [Mass/volume] i n Serum or PlasmaOrdered By: Dedrick Fuller on 08-15-2023 Triglyceride [Mass/Vol] 162 mg/dL 0-149 [facility] Comment on above: TRIG ATP III CLASSIF ICATIONTRIG less than 150 mg/dL NormalTRIG 150-199 mg/dL Borderline highTRIG 200-500 mg/dL High TRIG greater than 500 mg/dL Very highStandard traceable to the Center for Disease Conrtrol and Prevention (CDC) test method. Urea nitrogen [Mass/volume] in Serum or PlasmaOrdered By: Dedrick Fuller on 08-15-2023 Urea nitrogen [Mass/Vol] 10 mg/dL 7-25 [facility] GTT 2 HRon 11-09-2022 Glucose [Mass/Vol] 107 mg/dL Critically high 74-106 [facility] Comment on above: Performed By: #### U LG, CRP #### [facility] [address] [address] [address] Soo Donnelly Glucose [Mass/Vol] 152 mg/dL Normal [facility] Comment on above: Performed By: #### U LG, CRP #### [facility] [address] [address] [address] Soo Donnelly Glucose [Mass/Vol] 121 mg/dL Normal [facility] Comment on above: Performed By: #### U LG, CRP #### [facility] [address] [address] [address] Soo Donnelly Facesheeton 11-05-2022 Facesheet [id number] .00CD:127 Normal [facility] Physician Referralon 022 Physician Referral [id number] .00CD:127 Normal [facility] CT ABD/PELV W CONon 10-01-[address] [...] LUZ ELENA SAUCEDA Date: 2022-10-01 10:31 Normal [facility] CBC AUTO DIFFon 09-18-2022 BASO # 0.0 103/ul Normal 0.0-0.1 [facility] Comment on above: Performed By: #### A NAD #### [facility] [address] [place] [address] Dr. Soo Donnelly Basophils/100 WBC (Bld) 0.4 % Normal 0.2-2.0 [facility] Comment on above: Performed By: #### A NAD #### [facility] [address] [place] [address] Dr. Soo Donnelly EO # 0.1 103/ul Normal 0.0-0.7 [facility] Comment on above: Performed By: #### A NAD #### [facility] [address] [place] [address] Dr. Soo Donnelly Eosinophils/100 WBC (Bld) 1.8 % Normal 0.9-7.0 [facility] Comment on above: Performed By: #### A NAD #### [facility] [address] [place] [address] Dr. Soo Donnelly Erythrocyte distribution width (RBC) [Ratio] 11.9 % Normal 11.0-15.0 [facility] Comment on above: Performed By: #### A NAD #### [facility] [address] [place] [address] Dr. Soo Donnelly Hematocrit (Bld) [Volume fraction] 43.9 % Normal 36.0-48.0 [facility] Comment on above: Performed By: #### A NAD #### [facility] [address] [place] [address] Dr. Soo Donnelly Hemoglobin (Bld) [Mass/Vol] 14.6 g/dL Normal 12.0-16.0 [facility] Comment on above: Performed By: #### A NAD #### [facility] [address] [place] [address] Dr. Soo Donnelly IG # 0.01 10e3/ul Normal 0.00-0.03 [facility] Comment on above: Performed By: #### A NAD #### [facility] [facility] [address] [place] [address] Dr. Soo Donnelly IG % 0.1 % Normal 0.0-0.5 [facility] Comment on above: Performed By: #### A NAD #### [facility] [address] [place] [address] Dr. Soo Donnelly LYMPH # 2.7 103/ul Normal 1.2-3.8 [facility] Comment on above: Performed By: #### A NAD #### [facility] [address] [place] [address] Dr. Soo Donnelly Lymphocytes/100 WBC (Bld) 39.9 % Normal 20.5-60.0 [facility] Comment on above: Performed By: #### A NAD #### [facility] [address] [place] [address] Dr. Soo Donnelly MANUAL DIFF REQ NO Normal [facility] Comment on above: Performed By: #### A NAD #### [facility] [address] [place] [address] Dr. Soo Donnelly MCH (RBC) [Entitic mass] 31.7 pg Normal 26.7-34.0 [facility] Comment on above: Performed By: #### A NAD #### [facility] [address] [place] [address] Dr. Soo Donnelly MCHC (RBC) [Mass/Vol] 33.3 g/dL Normal 29.9-35.2 [facility] Comment on above: Performed By: #### A NAD #### [facility] [address] [place] [address] Dr. Soo Donnelly MCV (RBC) [Entitic vol] 95.4 fL Normal 81.0-99.0 [facility] Comment on above: Performed By: #### A NAD #### [facility] [address] [place] [address] Dr. Soo Donnelly MONO # 0.4 103/ul Normal 0.3-0.8 [facility] Comment on above: Performed By: #### A NAD #### [facility] [address] [place] [address] Dr. Soo Donnelly Monocytes/100 WBC (Bld) 5.9 % Normal 1.7-12.0 [facility] Comment on above: Performed By: #### A NAD #### [facility] [address] [place] [address] Dr. Soo Donnelly NEUT # 3.5 103/ul Normal 1.4-6.5 [facility] Comment on above: Performed By: #### A NAD #### [facility] [address] [place] [address] Dr. Soo Donnelly Neutrophils/100 WBC (Bld) 51.9 % Normal 43.0-75.0 [facility] Comment on above: Performed By: #### A NAD #### [facility] [address] [place] [address] Dr. Soo Donnelly Platelet mean volume (Bld) [Entitic vol] 10.8 fL Normal 9.5-13.5 [facility] Comment on above: Performed By: #### A NAD #### [facility] [address] [place] [address] Dr. Soo Donnelly PLT 220 103/ul Normal 150-450 [facility] Comment on above: Performed By: #### A NAD #### [facility] [address] [place] [address] Dr. Soo Donnelly RBC 4.60 106/ul Normal 4.20-5.40 [facility] Comment on above: Performed By: #### A NAD #### [facility] [address] [place] [address] Dr. Soo Donnelly WBC 6.8 103/ul Normal 4.0-11.0 [facility] Comment on above: Performed By: #### A NAD #### [facility] [address] [place] [address] Dr. Soo Donnelly ER URINE PROFILEon 2 Bilirubin Ql (U) Negative Normal NEGATIVE [facility] Comment on above: Performed By: #### U LG, CRP #### [facility] [address] [place] [address] Dr. Soo Donnelly Clarity (U) CLEAR Normal CLEAR [facility] Comment on above: Performed By: #### U LG, CRP #### [facility] [address] [place] [address] Dr. Soo Donnelly Color (U) LT. YELLOW Normal YELLOW [facility] Comment on above: Performed By: #### U LG, CRP #### [facility] [address] [address] [address] Soo CORTEZ A micrscopic examination will be performed if indicated. Normal [facility] Comment on above: Performed By: #### U LG, CRP #### [facility] [address] [address] [address] Soo Donnelly Glucose Ql (U) Negative Normal NEGATIVE [facility] Comment on above: Performed By: #### U LG, CRP #### [facility] [address] [address] [address] Soo Donnelly Hemoglobin Ql (U) Negative Normal NEGATIVE [facility] Comment on above: Performed By: #### U LG, CRP #### [facility] [address] [place] [address] Dr. Soo Donnelly Ketones Ql (U) Negative Normal NEGATIVE [facility] Comment on above: Performed By: #### U LG, CRP #### [facility] [address] [address] [address] Soo Donnelly LEUKOCYTES Negative Normal NEGATIVE [facility] Comment on above: Performed By: #### U LG, CRP #### [facility] [address] [address] [address] Soo Donnelly Nitrite Ql (U) Negative Normal NEGATIVE [facility] Comment on above: Performed By: #### U LG, CRP #### [facility] [address] [address] [address] Soo Donnelly pH (U) 6.0 [pH] Normal 5-9 [facility] Comment on above: Performed By: #### U LG, CRP #### [facility] [address] [address] [address] Soo Donnelly SPEC GRAVITY 1.015 Normal 1.005-<=1.02 5 [facility] Comment on above: Performed By: #### U LG, CRP #### [facility] [address] [place] [address] Dr. Soo Donnelly UA PROTEIN Negative Normal NEGATIVE/ TRACE [facility] Comment on above: Performed By: #### U LG, CRP #### [facility] [address] [address] [address] Soo Donnelly UR MICRO IND NOT INDICATED Normal [facility] Comment on above: Performed By: #### U LG, CRP #### [facility] [address] [address] [address] Soo Donnelly Urobilinogen Qn (U) 0.2 {Roma'U}/dL Normal 0.2 - 1. 0 [facility] Comment on above: Performed By: #### U LG, CRP #### [facility] [address] [address] [address] Soo Donnelly PROF CHEM 8 (BAS METB)on Anion gap [Moles/Vol] 10.2 mmol/L Normal [facility] Comment on above: Performed By: #### B MP #### [facility] [address] [place] [address] Dr. Soo Donnelly Calcium [Mass/Vol] 8.7 mg/dL Normal 8.5-10.1 [facility] Comment on above: Performed By: #### B MP #### [facility] [address] [place] [address] Dr. Soo Donnelly Chloride [Moles/Vol] 103 mmol/L Normal 98-107 [facility] Comment on above: Performed By: #### B MP #### [facility] [address] [place] [address] Dr. Soo Donnelly CO2 [Moles/Vol] 27.9 mmol/L Normal 21.0-32.0 [facility] Comment on above: Performed By: #### B MP #### [facility] [address] [place] [address] Dr. Soo Donnelly Creatinine [Mass/Vol] 0.80 mg/dL Normal 0.55-1.02 [facility] Comment on above: Performed By: #### B MP #### [facility] [address] [place] [address] Dr. Soo Donnelly EGFR-AF FINNISH >60 Normal >=60 [facility] Comment on above: Performed By: #### B MP #### [facility] [address] [address] [address] Soo Donnelly EGFR-NON AF FINNISH >60 Normal >=60 [facility] Comment on above: Performed By: #### B MP #### [facility] [address] [address] [address] Soo Donnelly Glucose [Mass/Vol] 103 mg/dL Normal 74-106 [facility] Comment on above: Performed By: #### B MP #### [facility] [address] [address] [address] Soo Donnelly Potassium [Moles/Vol] 4.1 mmol/L Normal 3.5-5.1 [facility] Comment on above: Performed By: #### B MP #### [facility] [address] [address] [address] Soo Donnelly Sodium [Moles/Vol] 137 mmol/L Normal 136-145 [facility] Comment on above: Performed By: #### B MP #### [facility] [address] [address] [address] Soo Donnelly Urea nitrogen [Mass/Vol] 11.0 mg/dL Normal 7.0-18.0 [facility] Comment on above: Performed By: #### B MP #### [facility] [address] [address] [address] Soo Donnelly Urea nitrogen/Creatinine [Mass ratio] 13.8 mg/mg Normal [facility] Comment on above: Performed By: #### B MP #### [facility] [address] [address] [address] Soo Donnelly XR KUB 1 VIEWon [...] patient's symptoms. Electronically authenticated by: LUZ ELENA Waters: 2022-09-18 12:12 Normal [facility] MG MAMM SCREEN 3D DEAN CADon 09-12-2022 MG MAMM SCREEN 3D DEAN CAD Patient: HORACIO KEATING Exam Date: 09/12/2022 : 1975 Gender:F Ordering : DR DELGADO MURILLO . Admission #: [id number] Family : Order #: [id number] CLICK HERE TO VIEW EXAM RADIOLOGY REPORT [...] ovarian cancer at age 77. LOCATION: [facility] BREAST COMPOSITION: Scattered areas fibroglandular [...] MD on 09/13/2022 at 07:46 Normal [facility] INSULINon 07-20-2022 Insulin 25.5 uIU/mL Critically high 2.6-24.9 [facility] Comment on above: Performed By: #### U LG, CRP #### [facility] [address] [address] [address] Soo Donnelly T4 LABCORPon 07-20-2022 T4 [Mass/Vol] 7.4 ug/dL Normal 4.5-12.0 [facility] Comment on above: Performed By: #### A NAD #### [facility] [address] [address] [address] Soo Donnelly CBC W MANUAL DIFFon 07-19-20 22 ATYPICAL LYMPH # Normal [facility] Comment on above: Performed By: #### B UN, CREA #### [facility] [address] [place] [address] Dr. Soo Donnelly ATYPICAL LYMPH % Normal [facility] Comment on above: Performed By: #### B UN, CREA #### [facility] [address] [place] [address] Dr. Soo Donnelly BAND # Normal 0.0-0.3 [facility] Comment on above: Performed By: #### B UN, CREA #### [facility] [address] [place] [address] Dr. Soo Donnelly BAND % Normal 0-5 [facility] Comment on above: Performed By: #### B UN, CREA #### [facility] [address] [place] [address] Dr. Soo Donnelly BASOM # 0.00 103/ul Normal 0.00-0.10 [facility] Comment on above: Performed By: #### B UN, CREA #### [facility] [address] [place] [address] Dr. Soo Donnelly BASOM % 0.0 % Critically low 0.2-2.0 [facility] Comment on above: Performed By: #### B UN, CREA #### [facility] [address] [place] [address] Dr. Soo Donnelly BLAST # Normal [facility] Comment on above: Performed By: #### B UN, CREA #### [facility] [address] [place] [address] Dr. Soo Donnelly BLAST % Normal [facility] Comment on above: Performed By: #### B UN, CREA #### [facility] [address] [place] [address] Dr. Soo Donnelly CORRECTED WBC Normal 4.0-11.0 [facility] Comment on above: Performed By: #### B UN, CREA #### [facility] [address] [place] [address] Dr. Soo Donnelly EOS # 0.31 103/ul Normal 0.00-0.70 [facility] Comment on above: Performed By: #### B UN, CREA #### [facility] [address] [place] [address] Dr. Soo Donnelly EOS% 2.0 % Normal 0.9-7.0 [facility] Comment on above: Performed By: #### B UN, CREA #### [facility] [address] [place] [address] Dr. Soo Donnelly HCT 41.6 % Normal 36.0-48.0 [facility] Comment on above: Performed By: #### B UN, CREA #### [facility] [address] [place] [address] Dr. Soo Donnelly HGB 13.8 g/dl Normal 12.0-16.0 [facility] Comment on above: Performed By: #### B UN, CREA #### [facility] [address] [place] [address] Dr. Soo Donnelly LYMPHM # 5.27 103/ul Critically high 1.20-3.80 [facility] Comment on above: Performed By: #### B UN, CREA #### [facility] [address] [place] [address] Dr. Soo Donnelly LYMPHM% 34.0 % Normal 20.5-60.0 [facility] Comment on above: Performed By: #### B UN, CREA #### [facility] [address] [place] [address] Dr. Soo Donnelly MCH 31.5 pg Normal 26.7-34.0 [facility] Comment on above: Performed By: #### B UN, CREA #### [facility] [address] [place] [address] Dr. Soo Donnelly MCHC 33.2 g/dl Normal 29.9-35.2 [facility] Comment on above: Performed By: #### B UN, CREA #### [facility] [address] [place] [address] Dr. Soo Donnelly MCV 95.0 fL Normal 81.0-99.0 [facility] Comment on above: Performed By: #### B UN, CREA #### [facility] [address] [place] [address] Dr. Soo Donnelly METAMYELOCYTE # Normal [facility] Comment on above: Performed By: #### B UN, CREA #### [facility] [address] [place] [address] Dr. Soo Donnelly METAMYELOCYTE % Normal [facility] Comment on above: Performed By: #### B UN, CREA #### [facility] [address] [place] [address] Dr. Soo Donnelly MONOM# 0.93 103/ul Critically high 0.30-0.80 [facility] Comment on above: Performed By: #### B UN, CREA #### [facility] [address] [place] [address] Dr. Soo Donnelly MONOM% 6.0 % Normal 1.7-12.0 [facility] Comment on above: Performed By: #### B UN, CREA #### [facility] [address] [place] [address] Dr. Soo oDnnelly MPV 10.1 fL Normal 9.5-13.5 [facility] Comment on above: Performed By: #### B UN, CREA #### [facility] [address] [place] [address] Dr. Soo Donnelly MYELOCYTE # Normal [facility] Comment on above: Performed By: #### B UN, CREA #### [facility] [address] [place] [address] Dr. Soo Donnelly MYELOCYTE % Normal [facility] Comment on above: Performed By: #### B UN, CREA #### [facility] [address] [place] [address] Dr. Soo Donnelly NRBC Normal [facility] Comment on above: Performed By: #### B UN, CREA #### [facility] [address] [address] [address] Soo Donnelly PLT 260 103/ul Normal 150-450 [facility] Comment on above: Performed By: #### B UN, CREA #### [facility] [address] [address] [address] Soo Donnelly RBC 4.38 106/ul Normal 4.20-5.40 [facility] Comment on above: Performed By: #### B UN, CREA #### [facility] [address] [address] [address] Soo Donnelly RDW 12.5 % Normal 11.0-15.0 [facility] Comment on above: Performed By: #### B UN, CREA #### [facility] [address] [address] [address] Soo Donnelly SEG # 8.99 103/ul Critically high 1.40-6.50 [facility] Comment on above: Performed By: #### B UN, CREA #### [facility] [address] [address] [address] Soo Donnelly SEG % 58.0 % Normal 43.0-75.0 [facility] Comment on above: Performed By: #### B UN, CREA #### [facility] [address] [address] [address] Soo Donnelly WBC 15.5 103/ul Critically high 4.0-11.0 [facility] Comment on above: Performed By: #### B UN, CREA #### [facility] [address] [address] [address] Soo Donnelly FREE T3on 07-19-2022 FREE T3 2.62 pg/mlL Normal 2.18-3.98 [facility] Comment on above: Performed By: #### U LG, CRP #### [facility] [address] [address] [address] Soo Donnelly GLYCOHEMOGLOBIN A1Con 2021 ADA RECOMMENDATION SEE BELOW Normal [facility] Comment on above: Result Comment: ADA RECOMMENDED LIMIT 4.0 - 6.0 ADA THERAPEUTIC TARGET < 7.0 ACTION SUGGESTED > 7.0 Performed By: #### U LG, CRP #### [facility] [address] [address] [address] Soo Donnelly Glucose [Mass/Vol] 137 mg/dL Normal [facility] Comment on above: Performed By: #### U LG, CRP #### [facility] [address] [address] [address] Soo Donnelly HbA1c (Bld) [Mass fraction] 6.4 % Critically high 4.5-6.2 [facility] Comment on above: Performed By: #### U LG, CRP #### [facility] [address] [address] [address] Soo Donnelly LIPID PROFILEon 07-19-2022 CHOL-HDL RATIO NORM SEE BELOW Normal [facility] Comment on above: Result Comment: 3.3 - 4.4 LOW RISK 4.4 - 7.1 AVERAGE RISK 7.1 - 11.0 MODERATE RISK >11.0 HIGH RISK Performed By: #### U LG, CRP #### [facility] [address] [address] [address] Soo Donnelly Cholesterol [Mass/Vol] 226 mg/dL Critically high <=200 [facility] Comment on above: Performed By: #### U LG, CRP #### [facility] [address] [address] [address] Soo Donnelly Cholesterol in HDL [Mass/Vol] 33 mg/dL Critically low 40-60 [facility] Comment on above: Performed By: #### U LG, CRP #### [facility] [address] [address] [address] Soo Donnelly Cholesterol in LDL [Mass/Vol] 135.2 mg/dL Normal [facility] Comment on above: Performed By: #### U LG, CRP #### [facility] [address] [address] [address] Soo Donnelly Cholesterol.total/Mirta sterol in HDL [Mass ratio] 6.8 {ratio} Normal [facility] Comment on above: Performed By: #### U LG, CRP #### [facility] [address] [address] [address] Soo Donnelly HDL NORMAL > or = 60 mg/dl - LO W CARDIOVASCULAR RISK <40 mg/dl - HIGH CARDIOVASCULAR RISK Normal [facility] Comment on above: Performed By: #### U LG, CRP #### [facility] [address] [address] [address] Soo Donnelly LDL CALC NORMAL SEE BELOW Normal [facility] Comment on above: Result Comment: <100 mg/dl OPTIMAL 100 - 129 mg/dl NEAR OR ABOVE OPTIMAL 130 - 159 mg/dl BORDERLINE HIGH 160 - 189 mg/dl HIGH >190 mg/dl VERY HIGH Performed By: #### U LG, CRP #### [facility] [address] [address] [address] Soo Donnelly Triglyceride [Mass/Vol] 289 mg/dL Critically high <=150 [facility] Comment on above: Performed By: #### U LG, CRP #### [facility] [address] [address] [address] Soo Donnelly VLDL CALC 57.8 mg/dL Normal [facility] Comment on above: Performed By: #### U LG, CRP #### [facility] [address] [address] [address] Soo Donnelly PROF 14(COMP METB)on 022 Albumin [Mass/Vol] 3.2 g/dL Critically low 3.4-5.0 [facility] Comment on above: Performed By: #### U LG, CRP #### [facility] [address] [address] [address] Soo Donnelly Albumin/Globulin [Mass ratio] 1.1 {ratio} Normal [facility] Comment on above: Performed By: #### U LG, CRP #### [facility] [address] [address] [address] Soo Donnelly ALP [Catalytic activity/Vol] 41 U/L Critically low 46-116 [facility] Comment on above: Performed By: #### U GL, CRP #### [facility] [address] [address] [address] Soo Donnelly ALT [Catalytic activity/Vol] 46 U/L Normal 14-59 [facility] Comment on above: Performed By: #### U LG, CRP #### [facility] [address] [address] [address] Soo Donnelly Anion gap [Moles/Vol] 9.3 mmol/L Normal [facility] Comment on above: Performed By: #### U LG, CRP #### [facility] [address] [address] [address] Soo Donnelly AST [Catalytic activity/Vol] 18 U/L Normal 15-37 [facility] Comment on above: Performed By: #### U LG, CRP #### [facility] [address] [address] [address] Soo Donnelly Bilirubin [Mass/Vol] 0.7 mg/dL Normal 0.2-1.0 [facility] Comment on above: Performed By: #### U LG, CRP #### [facility] [address] [place] [address] Dr. Soo Donnelly Calcium [Mass/Vol] 8.1 mg/dL Critically low 8.5-10.1 [facility] Comment on above: Performed By: #### U LG, CRP #### [facility] [address] [place] [address] Dr. Soo Donnelly Chloride [Moles/Vol] 101 mmol/L Normal 98-107 [facility] Comment on above: Performed By: #### U LG, CRP #### [facility] [address] [place] [address] Dr. Soo Donnelly CO2 [Moles/Vol] 31.1 mmol/L Normal 21.0-32.0 [facility] Comment on above: Performed By: #### U LG, CRP #### [facility] [address] [place] [address] Dr. Soo Donnelly Creatinine [Mass/Vol] 0.77 mg/dL Normal 0.55-1.02 [facility] Comment on above: Performed By: #### U LG, CRP #### [facility] [address] [place] [address] Dr. Soo Donnelly EGFR-AF FINNISH >60 Normal >=60 [facility] Comment on above: Performed By: #### U LG, CRP #### [facility] [address] [address] [address] Soo Donnelly EGFR-NON AF FINNISH >60 Normal >=60 [facility] Comment on above: Performed By: #### U GL, CRP #### [facility] [address] [address] [address] Soo Donnelly Globulin (S) [Mass/Vol] 3.0 g/dL Normal [facility] Comment on above: Performed By: #### U LG, CRP #### [facility] [address] [address] [address] Soo Donnelly Glucose [Mass/Vol] 104 mg/dL Normal 74-106 [facility] Comment on above: Performed By: #### U LG, CRP #### [facility] [address] [place] [address] Dr. Soo Donnelly Potassium [Moles/Vol] 3.4 mmol/L Critically low 3.5-5.1 [facility] Comment on above: Performed By: #### U LG, CRP #### [facility] [address] [place] [address] Dr. Soo Donnelly Protein [Mass/Vol] 6.2 g/dL Critically low 6.4-8.2 [facility] Comment on above: Performed By: #### U LG, CRP #### [facility] [address] [place] [address] Dr. Soo Donnelly Sodium [Moles/Vol] 138 mmol/L Normal 136-145 [facility] Comment on above: Performed By: #### U LG, CRP #### [facility] [address] [place] [address] Dr. Soo Donnelly Urea nitrogen [Mass/Vol] 16.0 mg/dL Normal 7.0-18.0 [facility] Comment on above: Performed By: #### U LG, CRP #### [facility] [address] [place] [address] Dr. Soo Donnelly Urea nitrogen/Creatinine [Mass ratio] 20.8 mg/mg Normal [facility] Comment on above: Performed By: #### U LG, CRP #### [facility] [address] [address] [address] Soo Donnelly TSHon 07-19-2022 TSH 3.262 uIU/mL Normal 0.358-3.740 [facility] Comment on above: Performed By: #### U LG, CRP #### [facility] [address] [place] [address] Dr. Soo Donnelly CBC AUTO DIFFon 05-18-2022 BASO # 0.0 103/ul Normal 0.0-0.1 [facility] Comment on above: Performed By: #### U LG, CRP #### [facility] [address] [place] [address] Dr. Soo Donnelly Basophils/100 WBC (Bld) 0.2 % Normal 0.2-2.0 [facility] Comment on above: Performed By: #### U LG, CRP #### [facility] [address] [place] [address] Dr. Soo Donnelly EO # 0.0 103/ul Normal 0.0-0.7 [facility] Comment on above: Performed By: #### U LG, CRP #### [facility] [address] [place] [address] Dr. Soo Donnelly Eosinophils/100 WBC (Bld) 0.2 % Critically low 0.9-7.0 [facility] Comment on above: Performed By: #### U LG, CRP #### [facility] [address] [place] [address] Dr. Soo Donnelly Erythrocyte distribution width (RBC) [Ratio] 12.8 % Normal 11.0-15.0 [facility] Comment on above: Performed By: #### U LG, CRP #### [facility] [address] [place] [address] Dr. Soo Donnelly Hematocrit (Bld) [Volume fraction] 35.7 % Critically low 36.0-48.0 [facility] Comment on above: Performed By: #### U LG, CRP #### [facility] [address] [place] [address] Dr. Soo Donnelly Hemoglobin (Bld) [Mass/Vol] 11.5 g/dL Critically low 12.0-16.0 [facility] Comment on above: Performed By: #### U LG, CRP #### [facility] [address] [address] [address] Soo Donnelly IG # 0.07 10e3/ul Critically high 0.00-0.03 [facility] Comment on above: Performed By: #### U LG, CRP #### [facility] [address] [address] [address] Soo Donnelly IG % 0.5 % Normal 0.0-0.5 [facility] Comment on above: Performed By: #### U LG, CRP #### [facility] [address] [address] [address] Soo Donnelly LYMPH # 4.1 103/ul Critically high 1.2-3.8 [facility] Comment on above: Performed By: #### U LG, CRP #### [facility] [address] [place] [address] Dr. Soo Donnelly Lymphocytes/100 WBC (Bld) 28.3 % Normal 20.5-60.0 [facility] Comment on above: Performed By: #### U LG, CRP #### [facility] [address] [place] [address] Dr. Soo Donnelly MANUAL DIFF REQ NO Normal [facility] Comment on above: Performed By: #### U GL, CRP #### [facility] [address] [address] [address] Soo Donnelly MCH (RBC) [Entitic mass] 31.7 pg Normal 26.7-34.0 [facility] Comment on above: Performed By: #### U LG, CRP #### [facility] [address] [address] [address] Soo Donnelly MCHC (RBC) [Mass/Vol] 32.2 g/dL Normal 29.9-35.2 [facility] Comment on above: Performed By: #### U LG, CRP #### [facility] [address] [address] [address] Soo Donnelly MCV (RBC) [Entitic vol] 98.3 fL Normal 81.0-99.0 [facility] Comment on above: Performed By: #### U LG, CRP #### [facility] [address] [place] [address] Dr. Soo Donnelly MONO # 0.8 103/ul Normal 0.3-0.8 [facility] Comment on above: Performed By: #### U LG, CRP #### [facility] [address] [place] [address] Dr. Soo Donnelly Monocytes/100 WBC (Bld) 5.6 % Normal 1.7-12.0 [facility] Comment on above: Performed By: #### U LG, CRP #### [facility] [address] [place] [address] Dr. Soo Donnelly NEUT # 9.4 103/ul Critically high 1.4-6.5 [facility] Comment on above: Performed By: #### U LG, CRP #### [facility] [address] [place] [address] Dr. Soo Donnelly Neutrophils/100 WBC (Bld) 65.2 % Normal 43.0-75.0 [facility] Comment on above: Performed By: #### U LG, CRP #### [facility] [address] [place] [address] Dr. Soo Donnelly Platelet mean volume (Bld) [Entitic vol] 10.8 fL Normal 9.5-13.5 [facility] Comment on above: Performed By: #### U LG, CRP #### [facility] [address] [place] [address] Dr. Soo Donnelly PLT 191 103/ul Normal 150-450 [facility] Comment on above: Performed By: #### U LG, CRP #### [facility] [address] [place] [address] Dr. Soo Donnelly RBC 3.63 106/ul Critically low 4.20-5.40 [facility] Comment on above: Performed By: #### U LG, CRP #### [facility] [address] [place] [address] Dr. Soo Donnelly WBC 14.4 103/ul Critically high 4.0-11.0 [facility] Comment on above: Performed By: #### U LG, CRP #### [facility] [address] [place] [address] Dr. Soo Donnelly BUNon 05-17-2022 Urea nitrogen [Mass/Vol] 8.0 mg/dL Normal 7.0-18.0 [facility] Comment on above: Performed By: #### B UN, CREA #### [facility] [address] [place] [address] Dr. Soo Donnelly CBC AUTO DIFFon 05-17-2022 BASO # 0.0 103/ul Normal 0.0-0.1 [facility] Comment on above: Performed By: #### U LG, CRP #### [facility] [address] [place] [address] Dr. Soo Donnelly Basophils/100 WBC (Bld) 0.1 % Critically low 0.2-2.0 [facility] Comment on above: Performed By: #### U LG, CRP #### [facility] [address] [place] [address] Dr. Soo Donnelly EO # 0.0 103/ul Normal 0.0-0.7 [facility] Comment on above: Performed By: #### U LG, CRP #### [facility] [address] [place] [address] Dr. Soo Donnelly Eosinophils/100 WBC (Bld) 0.0 % Critically low 0.9-7.0 [facility] Comment on above: Performed By: #### U LG, CRP #### [facility] [address] [place] [address] Dr. Soo Donnelly Erythrocyte distribution width (RBC) [Ratio] 12.5 % Normal 11.0-15.0 [facility] Comment on above: Performed By: #### U LG, CRP #### [facility] [address] [place] [address] Dr. Soo Donnelly Hematocrit (Bld) [Volume fraction] 38.5 % Normal 36.0-48.0 [facility] Comment on above: Performed By: #### U LG, CRP #### [facility] [address] [address] [address] Soo Donnelly Hemoglobin (Bld) [Mass/Vol] 13.0 g/dL Normal 12.0-16.0 [facility] Comment on above: Performed By: #### U LG, CRP #### [facility] [address] [place] [address] Dr. Soo Donnelly IG # 0.16 10e3/ul Critically high 0.00-0.03 [facility] Comment on above: Performed By: #### U LG, CRP #### [facility] [address] [place] [address] Dr. Soo Donnelly IG % 0.7 % Critically high 0.0-0.5 [facility] Comment on above: Performed By: #### U LG, CRP #### [facility] [address] [place] [address] Dr. Soo Donnelly LYMPH # 3.0 103/ul Normal 1.2-3.8 [facility] Comment on above: Performed By: #### U LG, CRP #### [facility] [address] [place] [address] Dr. Soo Donnelly Lymphocytes/100 WBC (Bld) 12.2 % Critically low 20.5-60.0 [facility] Comment on above: Performed By: #### U LG, CRP #### [facility] [address] [place] [address] Dr. Soo Donnelly MANUAL DIFF REQ NO Normal [facility] Comment on above: Performed By: #### U LG, CRP #### [facility] [address] [place] [address] Dr. Soo Donnelly MCH (RBC) [Entitic mass] 32.4 pg Normal 26.7-34.0 [facility] Comment on above: Performed By: #### U LG, CRP #### [facility] [address] [place] [address] Dr. Soo Donnelly MCHC (RBC) [Mass/Vol] 33.8 g/dL Normal 29.9-35.2 [facility] Comment on above: Performed By: #### U LG, CRP #### [facility] [address] [address] [address] Soo Donnelly MCV (RBC) [Entitic vol] 96.0 fL Normal 81.0-99.0 [facility] Comment on above: Performed By: #### U LG, CRP #### [facility] [address] [address] [address] Soo Donnelly MONO # 1.3 103/ul Critically high 0.3-0.8 [facility] Comment on above: Performed By: #### U LG, CRP #### [facility] [address] [address] [address] Soo Donnelly Monocytes/100 WBC (Bld) 5.4 % Normal 1.7-12.0 [facility] Comment on above: Performed By: #### U LG, CRP #### [facility] [address] [place] [address] Dr. Soo Donnelly NEUT # 19.8 103/ul Critically high 1.4-6.5 [facility] Comment on above: Performed By: #### U LG, CRP #### [facility] [address] [address] [address] Soo Donnelly Neutrophils/100 WBC (Bld) 81.6 % Critically high 43.0-75.0 [facility] Comment on above: Performed By: #### U LG, CRP #### [facility] [address] [place] [address] Dr. Soo Donnelly Platelet mean volume (Bld) [Entitic vol] 10.5 fL Normal 9.5-13.5 [facility] Comment on above: Performed By: #### U LG, CRP #### [facility] [address] [place] [address] Dr. Soo Donnelly PLT 253 103/ul Normal 150-450 [facility] Comment on above: Performed By: #### U LG, CRP #### [facility] [address] [place] [address] Dr. Soo Donnelly RBC 4.01 106/ul Critically low 4.20-5.40 [facility] Comment on above: Performed By: #### U LG, CRP #### [facility] [address] [address] [address] Soo Donnelly WBC 24.3 103/ul Critically high 4.0-11.0 [facility] Comment on above: Performed By: #### U LG, CRP #### [facility] [address] [address] [address] Soo Donnelly BASO # 0.0 103/ul Normal 0.0-0.1 [facility] Comment on above: Performed By: #### U LG, CRP #### [facility] [address] [address] [address] Soo Donnelly Basophils/100 WBC (Bld) 0.1 % Critically low 0.2-2.0 [facility] Comment on above: Performed By: #### U LG, CRP #### [facility] [address] [address] [address] Soo Donnelly EO # 0.0 103/ul Normal 0.0-0.7 [facility] Comment on above: Performed By: #### U LG, CRP #### [facility] [address] [address] [address] Soo Donnelly Eosinophils/100 WBC (Bld) 0.0 % Critically low 0.9-7.0 [facility] Comment on above: Performed By: #### U LG, CRP #### [facility] [address] [address] [address] Soo Donnelly Erythrocyte distribution width (RBC) [Ratio] 12.3 % Normal 11.0-15.0 [facility] Comment on above: Performed By: #### U LG, CRP #### [facility] [address] [address] [address] Soo Donnelly Hematocrit (Bld) [Volume fraction] 41.2 % Normal 36.0-48.0 [facility] Comment on above: Performed By: #### U LG, CRP #### [facility] [address] [address] [address] Soo Donnelly Hemoglobin (Bld) [Mass/Vol] 13.5 g/dL Normal 12.0-16.0 [facility] Comment on above: Performed By: #### U LG, CRP #### [facility] [address] [place] [address] Dr. Soo Donnelly IG # 0.11 10e3/ul Critically high 0.00-0.03 [facility] Comment on above: Performed By: #### U LG, CRP #### [facility] [address] [address] [address] Soo Donnelly IG % 0.5 % Normal 0.0-0.5 [facility] Comment on above: Performed By: #### U LG, CRP #### [facility] [address] [place] [address] Dr. Soo Donnelly LYMPH # 1.6 103/ul Normal 1.2-3.8 [facility] Comment on above: Performed By: #### U LG, CRP #### [facility] [address] [place] [address] Dr. Soo Donnelly Lymphocytes/100 WBC (Bld) 7.8 % Critically low 20.5-60.0 [facility] Comment on above: Performed By: #### U LG, CRP #### [facility] [address] [place] [address] Dr. Soo Donnelly MANUAL DIFF REQ NO Normal [facility] Comment on above: Performed By: #### U LG, CRP #### [facility] [address] [address] [address] Soo Donnelly MCH (RBC) [Entitic mass] 31.8 pg Normal 26.7-34.0 [facility] Comment on above: Performed By: #### U LG, CRP #### [facility] [address] [address] [address] Soo Donnelly MCHC (RBC) [Mass/Vol] 32.8 g/dL Normal 29.9-35.2 [facility] Comment on above: Performed By: #### U LG, CRP #### [facility] [address] [place] [address] Dr. Soo Donnelly MCV (RBC) [Entitic vol] 96.9 fL Normal 81.0-99.0 [facility] Comment on above: Performed By: #### U LG, CRP #### [facility] [address] [place] [address] Dr. Soo Donnelly MONO # 0.4 103/ul Normal 0.3-0.8 [facility] Comment on above: Performed By: #### U LG, CRP #### [facility] [address] [place] [address] Dr. Soo Donnelly Monocytes/100 WBC (Bld) 2.0 % Normal 1.7-12.0 [facility] Comment on above: Performed By: #### U LG, CRP #### [facility] [address] [place] [address] Dr. Soo Donnelly NEUT # 18.1 103/ul Critically high 1.4-6.5 [facility] Comment on above: Performed By: #### U LG, CRP #### [facility] [address] [place] [address] Dr. Soo Donnelly Neutrophils/100 WBC (Bld) 89.6 % Critically high 43.0-75.0 [facility] Comment on above: Performed By: #### U LG, CRP #### [facility] [address] [place] [address] Dr. Soo Donnelly Platelet mean volume (Bld) [Entitic vol] 11.0 fL Normal 9.5-13.5 [facility] Comment on above: Performed By: #### U LG, CRP #### [facility] [address] [place] [address] Dr. Soo Donnelly PLT 223 103/ul Normal 150-450 [facility] Comment on above: Performed By: #### U LG, CRP #### [facility] [address] [place] [address] Dr. Soo Donnelly RBC 4.25 106/ul Normal 4.20-5.40 [facility] Comment on above: Performed By: #### U LG, CRP #### [facility] [address] [place] [address] Dr. Soo Donnelly WBC 20.2 103/ul Critically high 4.0-11.0 [facility] Comment on above: Performed By: #### U LG, CRP #### [facility] [address] [place] [address] Dr. Soo Donnelly CREATININEon 05-17-2022 Creatinine [Mass/Vol] 0.97 mg/dL Normal 0.55-1.02 [facility] Comment on above: Performed By: #### B UN, CREA #### [facility] [address] [address] [address] Soo Donnelly EGFR-AF FINNISH >60 Normal >=60 [facility] Comment on above: Performed By: #### B UN, CREA #### [facility] [address] [place] [address] Dr. Soo Donnelly EGFR-NON AF FINNISH >60 Normal >=60 [facility] Comment on above: Performed By: #### B UN, CREA #### [facility] [address] [place] [address] Dr. Soo Donnelly CTA CHEST WO W [...] LUZ ELENA SAUCEDA Date: 2022-05-17 16:40 Normal [facility] XR CHEST 2 Von 05-17-2022 [...] SAMI JONES Date: 2022-05-17 16:10 Normal [facility] CBC AUTO DIFFon 05-16-2022 BASO # 0.1 103/ul Normal 0.0-0.1 [facility] Comment on above: Performed By: #### B UN, CREA #### [facility] [address] [place] [address] Dr. Soo Donnelly Basophils/100 WBC (Bld) 0.5 % Normal 0.2-2.0 [facility] Comment on above: Performed By: #### B UN, CREA #### [facility] [address] [place] [address] Dr. Soo Donnelly EO # 0.1 103/ul Normal 0.0-0.7 [facility] Comment on above: Performed By: #### B UN, CREA #### [facility] [address] [place] [address] Dr. Soo Donnelly Eosinophils/100 WBC (Bld) 1.0 % Normal 0.9-7.0 [facility] Comment on above: Performed By: #### B JOANNA, CREA #### [facility] [address] [place] [address] Dr. Soo Donnelly Erythrocyte distribution width (RBC) [Ratio] 12.2 % Normal 11.0-15.0 [facility] Comment on above: Performed By: #### B JOANNA, CREA #### [facility] [address] [place] [address] Dr. Soo Donnelly Hematocrit (Bld) [Volume fraction] 41.2 % Normal 36.0-48.0 [facility] Comment on above: Performed By: #### B UN, CREA #### [facility] [address] [place] [address] Dr. Soo Donnelly Hemoglobin (Bld) [Mass/Vol] 13.9 g/dL Normal 12.0-16.0 [facility] Comment on above: Performed By: #### B UN, CREA #### [facility] [address] [place] [address] Dr. Soo Donnelly IG # 0.04 10e3/ul Critically high 0.00-0.03 [facility] Comment on above: Performed By: #### B UN, CREA #### [facility] [address] [place] [address] Dr. Soo Donnelly IG % 0.4 % Normal 0.0-0.5 [facility] Comment on above: Performed By: #### B UN, CREA #### [facility] [address] [place] [address] Dr. Soo Donnelly LYMPH # 3.5 103/ul Normal 1.2-3.8 [facility] Comment on above: Performed By: #### B UN, CREA #### [facility] [address] [place] [address] Dr. Soo Donnelly Lymphocytes/100 WBC (Bld) 35.3 % Normal 20.5-60.0 [facility] Comment on above: Performed By: #### B UN, CREA #### [facility] [address] [place] [address] Dr. Soo Donnelly MANUAL DIFF REQ NO Normal [facility] Comment on above: Performed By: #### B UN, CREA #### [facility] [address] [place] [address] Dr. Soo Donnelly MCH (RBC) [Entitic mass] 31.7 pg Normal 26.7-34.0 [facility] Comment on above: Performed By: #### B UN, CREA #### [facility] [address] [place] [address] Dr. Soo Donnelly MCHC (RBC) [Mass/Vol] 33.7 g/dL Normal 29.9-35.2 [facility] Comment on above: Performed By: #### B UN, CREA #### [facility] [address] [place] [address] Dr. Soo Donnelly MCV (RBC) [Entitic vol] 94.1 fL Normal 81.0-99.0 [facility] Comment on above: Performed By: #### B UN, CREA #### [facility] [address] [place] [address] Dr. Soo Donnelly MONO # 0.5 103/ul Normal 0.3-0.8 [facility] Comment on above: Performed By: #### B UN, CREA #### [facility] [address] [place] [address] Dr. Soo Donnelly Monocytes/100 WBC (Bld) 5.4 % Normal 1.7-12.0 [facility] Comment on above: Performed By: #### B UN, CREA #### [facility] [address] [place] [address] Dr. Soo Donnelly NEUT # 5.6 103/ul Normal 1.4-6.5 [facility] Comment on above: Performed By: #### B UN, CREA #### [facility] [address] [place] [address] Dr. Soo Donnelly Neutrophils/100 WBC (Bld) 57.4 % Normal 43.0-75.0 [facility] Comment on above: Performed By: #### B UN, CREA #### [facility] [address] [place] [address] Dr. Soo Donnelly Platelet mean volume (Bld) [Entitic vol] 10.3 fL Normal 9.5-13.5 [facility] Comment on above: Performed By: #### B UN, CREA #### [facility] [address] [place] [address] Dr. Soo Donnelly PLT 235 103/ul Normal 150-450 [facility] Comment on above: Performed By: #### B UN, CREA #### [facility] [address] [address] [address] Soo Donnelly RBC 4.38 106/ul Normal 4.20-5.40 [facility] Comment on above: Performed By: #### B UN, CREA #### [facility] [address] [address] [address] Soo Donnelly WBC 9.8 103/ul Normal 4.0-11.0 [facility] Comment on above: Performed By: #### B UN, CREA #### [facility] [address] [address] [address] Soo Donnelly PREG QUANT HCGon 05-16-2022 HCG QUANT <1 Normal [facility] Comment on above: Performed By: #### U LG, CRP #### [facility] [address] [address] [address] Soo Donnelly HCG RANGE SEE BELOW Normal [facility] Comment on above: Result Comment: 5-50 0-1 WEEK 40-300 1-2 WEEKS 100-1,000 2-3 WEEKS 500-6,000 3-4 WEEKS 5,000-200,000 1-2 MONTHS 10,000-100,000 2-3 MONTHS 3,000-50,000 2ND TRIMESTER 1,000-50,000 3RD TRIMESTER Performed By: #### U LG, CRP #### [facility] [address] [address] [address] Soo Donnelly Covid-19 PCR (CVDTBH)on 05-01 SARS-CoV-2 (COVID-19) RNA NOLA+probe Ql (Unsp spec) Not detected Normal NOT DETECTED [facility] Comment on above: Result Comment: This test is not yet approved or cleared by the [place] FDA. When there are no FDA-approved or cleared tests available, and other criteria are met, FDA can make tests available under an emergency access mechanism called an Emergency Use Authorization (EUA). The EUA for this test is supported by the Sales Floor Team Leader of Health and Human Service's (HHS's) declaration [...] SARS-CoV-2. Performed By: #### C VDTBH #### [facility] [address] [place] [address] Dr. Soo Donnelly TYPE AND SCREENon 05-13-2022 TYPE AND SCREEN Negative Normal [facility] Comment on above: Performed By: #### B UN, CREA #### [facility] [address] [place] [address] Dr. Soo Donnelly PAP ACOG PANEL 2: 30 to 65on 05-07-2022 . . Normal [facility] Comment on above: Result Comment: Perf ormed at: WB Performed By: #### [id number] #### [facility] [address] [place] [address] Dr. Soo Donnelly Age Gdln ACOG Testing 30-65 Normal [facility] Comment on above: Performed By: #### [id number] #### [facility] [address] [place] [address] Dr. Soo Donnelly DIAGNOSIS: Comment Normal [facility] Comment on above: Result Comment: NEGA TIVE FOR INTRAEPITHELIAL LESION OR MALIGNANCY. Performed at: WB Performed By: #### [id number] #### [facility] [address] [place] [address] Dr. Soo Donnelly HPV Aptima Negative Normal Negative [facility] Comment on above: Result Comment: This nucleic acid amplification test detects fourteen high-risk HPV types (16,18,31,33,35,39,45,51,52,56,58,59,66,68) without differentiation. Performed at: =G Performed By: #### [id number] #### [facility] [address] [place] [address] Dr. Soo Donnelly Methodology: Comment Normal [facility] Comment on above: Result Comment: This liquid based ThinPrep(R) pap test was screened with the use of an image guided system. Performed at: WB Performed By: #### [id number] #### [facility] [address] [place] [address] Dr. Soo Donnelly Note: Comment Normal [facility] Comment on above: Result Comment: The Pap smear is a screening test designed to aid in the detection of premalignant and malignant conditions of the uterine cervix. It is not a diagnostic procedure and should not be used as the sole means of detecting cervical cancer. Both false-positive and false-negative reports do occur. . Performed at: WB Performed By: #### [id number] #### [facility] [address] [place] [address] Dr. Soo Donnelly Performed by: Comment Normal [facility] Comment on above: Result Comment: Angel Rod, Home Health Care Worker (ASCP) Performed at: WB Performed By: #### [id number] #### [facility] [address] [place] [address] Dr. Soo Donnelly Specimen adequacy: Comment Normal [facility] Comment on above: Result Comment: Sati sfactory for evaluation. Endocervical and/or squamous metaplastic cells (endocervical component) are present. Performed at: WB Performed By: #### [id number] #### [facility] [address] [place] [address] Dr. Soo Donnelly ORSS by IFAon 02-21-2022 Antinuclear Antibodies, IFA Negative Normal [facility] Comment on above: Result Comment: Nega tive <1:80 Borderline 1:80 Positive >1:80 ICAP nomenclature: AC-0 For more information about Hep-2 cell patterns use ANApatterns.org, the official website for the International Consensus on Antinuclear Antibody (ROSS) Patterns (ICAP). Performed By: #### U LG, CRP #### [facility] [address] [place] [address] Dr. Soo Donnelly ROSS DIRECTon 02-20-2022 ROSS Direct Negative Normal Negative [facility] Comment on above: Performed By: #### A NAD #### [facility] [address] [place] [address] Dr. Soo Donnelly ANTISTREPTOLYSIN O AB (ASO)o n 02-20-2022 Antistreptolysin O Ab 115.3 IU/mL Normal 0.0-200.0 Th [facility] Comment on above: Performed By: #### B UN, CREA #### [facility] [address] [place] [address] Dr. Soo Donnelly C3 and C4 COMPLEMENTon 02-20 Complement C3, Serum 137 mg/dL Normal 82-167 [facility] Comment on above: Performed By: #### U LG, CRP #### [facility] [address] [place] [address] Dr. Soo Donnelly Complement C4, Serum 23 mg/dL Normal 12-38 [facility] Comment on above: Performed By: #### U LG, CRP #### [facility] [address] [place] [address] Dr. Soo Donnelly SLE PROFILE Aon 02-20-2022 Anti-DNA (DS) Ab Qn <1 Normal 0-9 [facility] Comment on above: Result Comment: Nega tive <5 Equivocal 5 - 9 Positive >9 Performed By: #### S YARI #### [facility] [address] [place] [address] Dr. Soo Donnelly Antichromatin Antibodies <0.2 Normal 0.0-0.9 [facility] Comment on above: Performed By: #### S YARI #### [facility] [address] [place] [address] Dr. Soo Donnelly RA Latex Turbid. <10.0 Normal <14.0 [facility] Comment on above: Performed By: #### S YARI #### [facility] [address] [place] [address] Dr. Soo Donnelly FREEZER ASSISTANT Antibodies <0.2 Normal 0.0-0.9 [facility] Comment on above: Performed By: #### S YARI #### [facility] [address] [place] [address] Dr. Soo Donnelly Sjogren'neel Anti-SS-A <0.2 Normal 0.0-0.9 [facility] Comment on above: Performed By: #### S YARI #### [facility] [address] [place] [address] Dr. Soo Donnelly Sjogren'neel Anti-SS-B <0.2 Normal 0.0-0.9 [facility] Comment on above: Performed By: #### S YARI #### [facility] [address] [place] [address] Dr. Soo Donnelly Spann Antibodies <0.2 Normal 0.0-0.9 [facility] Comment on above: Performed By: #### S YARI #### [facility] [address] [place] [address] Dr. Soo Donnelly CRPon 02-19-2022 CRP [Mass/Vol] mg/L Normal <=1.0 [facility] Comment on above: Performed By: #### U LG, CRP #### [facility] [address] [place] [address] Dr. Soo Donnelly URIC ACID SERUMon 02-19-2022 Urate [Mass/Vol] 4.7 mg/dL Normal 2.5-6.2 [facility] Comment on above: Performed By: #### U LG, CRP #### [facility] [address] [place] [address] Dr. Soo Donnelly XR CSPINE MIN 4 [...] ABIGAIL SHEEHAN Date: 2022-02-19 16:33 Normal [facility] XR HAND DEAN MIN 3Von [...] ABIGAIL SHEEHAN Date: 2022-02-19 16:28 Normal [facility] ASYMPTOMATIC COVID-19 ANTIGE Non 12-04-2021 EUA Statement SEE BELOW Normal [facility] Comment on above: Result Comment: This [...] sooner. Performed By: #### C VDAGA #### [facility] [address] [place] [address] Dr. Soo Donnelly SARS-CoV-2 (COVID-19) RNA NOLA+probe Ql (Unsp spec) Negative Normal NEGATIVE [facility] Comment on above: Result Comment: Nega tive results are presumptive. They do not preclude infection and should not be used as the sole basis for treatment decisions. Additional confirmatory testing by a molecular method should be considered. Performed By: #### C VDAGA #### [facility] [address] [place] [address] [id number] [address] Soo Donnelly Covid-19 PCR (CVDTB)on SARS-CoV-2 (COVID-19) RNA NOLA+probe Ql (Unsp spec) Not detected Normal NOT DETECTED [facility] Comment on above: Result Comment: This test is not yet approved or cleared by the [place] FDA. When there are no FDA-approved or cleared tests available, and other criteria are met, FDA can make tests available under an emergency access mechanism called an Emergency Use Authorization (EUA). The EUA for this test is supported by the [place] of Health and Human Service's (HHS's) declaration [...] Performed By: #### U LG, CRP #### [facility] [address] [place], [place] [id number] Dr. Soo Donnelly Vital Signs Date Time Vital Sign Value Performing Clinician Facility 11-01-2022 15:19-0500 Blood Pressure Location Nicola CHANEL [facility] 11-01-2022 15:19-0500 Diastolic blood pressure 80 mm[Hg] Nicola BUCHANAN [facility] 11-01-2022 15:19-0500 Heart rate 72 /min Nicola CANDELARIOL [facility] 11-01-2022 15:19-0500 Respiratory rate 16 /min Nicola BUCHANAN [facility] 11-01-2022 15:19-0500 Systolic blood pressure 118 mm[Hg] Nicola BUCHANAN [facility] [place] 10-01-2022 16:30-0400 Body height 170.18 cm Clarice Scally Other [facility] Other 10-01-2022 16:30-0400 Body mass index (BMI) [Ratio] 32.84 kg/m2 Clarice Scally Other [facility] Other 10-01-2022 16:30-0400 Body weight 95.12 kg Clarice Scally Other [facility] Other 10-01-2022 16:30-0400 Diastolic blood pressure 82 mm[Hg] Clarice Scally Other [facility] Other 10-01-2022 16:30-0400 Respiratory rate 18 /min Clarice Scally Other [facility] Other 10-01-2022 16:30-0400 SaO2% (BldA) [Mass fraction] 97 % Clarice Scally Other [facility] Other 10-01-2022 16:30-0400 Systolic blood pressure 116 mm[Hg] Clarice Scally Other [facility] Other 08-28-2022 14:30-0400 Body height 170.18 cm Nahid Mccoy Other [facility] Other 08-28-2022 14:30-0400 Body mass index (BMI) [Ratio] 34.55 kg/m2 Nahid Mccoy Other [facility] Other 08-28-2022 14:30-0400 Body weight 100.06 kg Nahid Mccoy Other [facility] Other 08-28-2022 14:30-0400 Diastolic blood pressure 82 mm[Hg] Nahid Mccoy Other [facility] Other 08-28-2022 14:30-0400 Respiratory rate 18 /min Nahid Mccoy Other [facility] Other 08-28-2022 14:30-0400 SaO2% (BldA) [Mass fraction] 97 % Nahid Mccoy Other [facility] Other 08-28-2022 14:30-0400 Systolic blood pressure 121 mm[Hg] Nahid Mccoy Other [facility] Other Encounters Encounter Date Encounter Type Care Provider Facility Start: 09-27-2024 End: 09-27-2024 ambulatory DELGADO LIDIA Not Available Start: 09-27-2024 End: 09-27-2024 Bamboo flowsheet Delgado Lidia DO Work Phone: [facility] Start: 09-27-2024 End: 09-27-2024 Bamboo flowsheet Delgado Lidia DO Work Phone: [facility] Start: 09-20-2024 End: 09-20-2024 ambulatory Hebert Jara MD Facility:[facility] Start: 09-09-2024 End: 09-09-2024 ambulatory Carol Webb PT Work Phone: [facility] Comment on above: Neck pain (Primary D x); Chronic bilateral low back pain with bilateral sciatica Start: 09-09-2024 End: 09-09-2024 Bamboo flowsheet Carol Webb PT Work Phone: [facility] Start: 09-09-2024 End: 09-09-2024 Bamboo flowsheet Carol Paris Webb PT Work Phone: [facility] Start: 08-30-2024 End: 08-30-2024 [facility] [address] Work Phone: Start: 08-30-2024 End: 08-30-2024 ambulatory NON STAFF [facility] Work Phone: Start: 04-05-2024 End: 04-05-2024 ambulatory DELGADO MURILLO Not Available Start: 03-15-2024 End: 03-15-2024 Emergency department patient visit Nicola Neff Facility:[facility] Start: 10-22-2023 End: 10-22-2023 ambulatory JESSICA SANCHEZ Not Available Start: 08-15-2023 End: 08-15-2023 ambulatory NON STAFF [facility] Work Phone: Start: 08-15-2023 End: 08-15-2023 Dep[facility]ed [facility] [address] Work Phone: Start: 12-05-[address] SAMI MARINELLI Facility :[facility] Start: 11-09-2022 End: 11-10-[address] DOCTOR STEIN Facility:[facility] Start: 11-01-2022 End: 11-02-2022 ambulatory Nicola BUCHANAN Facility: [place] Start: 11-01-2022 End: 11-01-2022 Patient encounter procedure Nicola BUCHANAN [facility] Start: 10-29-2022 End: 10-29-2022 ambulatory Clarice Hull Other [facility] Other Start: 10-29-2022 Telephone encounter [facility] Start: 10-14-2022 End: 10-14-2022 ambulatory Clarice Hull Other [facility] Other Start: 10-14-2022 Telephone encounter Clarice [facility] Start: 10-04-2022 ambulatory Nicola CANDELARIOHamida Facility:[facility] Start: 10-01-2022 (FCCCWMNF/U) Weight Management f/u Clarice Hull Pending Sale To [facility] Start: 10-01-2022 End: 10-02-[address] LUZ ELENA SAUCEDA [facility] [employer] Other Start: 09-19-2022 End: 09-19-2022 ambulatory Nahid Mccoy Other [facility] Other Start: 09-19-2022 Telephone encounter Nahid [facility] Start: 09-18-2022 End: 09-18-[address] LUZ ELENA SAUCEDA Facility:[facility] Start: 09-12-2022 End: 09-13-[address] ABIGAIL SHEEHAN Facility:[facility] Start: 08-28-2022 End: 08-28-2022 ambulatory Nahid Mccoy Other [facility] Other Start: 08-28-2022 Nutrition therapy Nhaid Mccoy [facility] Start: 07-22-2022 Encounter for genera l adult medical examination without abnormal findings DR SAMI MARINELLI [facility] Start: 07-19-2022 End: 07-20-[address] [...] for preprocedural laboratory examination DR DELGADO MURILLO [facility] Start: 05-13-2022 End: 05-14-[address] DELGADO MURILLO Facility:[facility] Start: 05-13-2022 End: 05-14-2022 Encounter for preprocedural laboratory examination DR DELGADO MURILLO Facility:[facility] Start: 05-11-2022 Encounter for preprocedural cardiovascular examination DR DELGADO MURILLO [facility] Start: 05-08-2022 End: 05-09-[address] SAMI MARINELLI Facility:[facility] Start: 05-08-2022 End: 05-09-2022 Encounter for preprocedural cardiovascular examination DR SAMI MARINELLI Facility:[facility] Start: 05-02-2022 End: 05-02-[address] DELGADO MURILLO Facility:[facility] Start: 02-19-2022 End: 02-20-[address] SAMI MARINELLI Facility:[facility] Start: 12-04-2021 End: 12-04-[address] SAMI MARINELLI Facility:[facility] Procedures Date Procedure Procedure Detail Performing Clinician Start: 11-27-2023 Mammography Carol lundy PT Work Phone: Start: 10-23-2023 Microscopic observat ion [Identifier] in Cervix by Cyto stain Carol Webb PT Work Phone: Start: 05-16-2022 Excision of Right Ov roge, Open Approach DR ABIGAIL SHEEHAN Start: 05-16-2022 Resection of Bilater al Fallopian Tubes, Open Approach DR ABIGAIL SHEEHAN Start: 05-16-2022 Resection of Left Ov roge, Open Approach DR AIBGAIL SHEEHAN Start: 05-16-2022 Resection of Uterus, Supracervical, [...] C SECTION LIPOMA EXCISION 4 Nicola IBANEZ LL Comment on above: ABDOMEN X3 REPAIR FOR TMJ Nicola BUCHANAN Plan of Treatment Date Care Activity Detail Author Start: 05-28-2031 Screening for malign ant neoplasm of colon [facility] Start: 10-23-2028 Screening for malign ant neoplasm of cervix [facility] Start: 11-27-2024 Screening for malign ant neoplasm of breast Mammogram [facility] Start: 11-22-2024 End: 11-22-2024 Patient encounter procedure 11/22/2024 1:00 PM EST Office Visit [facility] [address] [place] [address] Delgado Murillo, DO [address] [place] [address] [facility] Start: 09-27-2024 End: 09-27-2024 Patient encounter procedure 09/27/2024 3:10 PM EDT Office Visit [facility] [address] [place] [address] Delgado Murillo, DO [address] [place] [address] Arrived [facility] Comment on above: Arrived Start: 09-09-2024 End: 09-09-2024 ambulatory 09/09/2024 4:00 PM EDT Evaluation [facility] [address] [place] [id number] Carol Webb, PT [address] [place] [address] Arrived [facility] Comment on above: Arrived Start: 08-01-2024 Influenza vaccination Influenza Vacc ine (#1) [facility] Start: 1975 Screening for malign ant neoplasm of colon [facility] Immunizations Immunization Date Immunization Notes Care Provider Fa cility NEGATED: Highlighted row has not occurred!11-01-2022 influenza virus vaccine, unspecified formulation Nicola BUCHANAN [facility] [place] Payers Date Payer Category Payer Self-pay [id number] 2023 Private Health Insurance [employer] [id number] 2023 Unknown [id number]. 1.13.693.2. [id number] 1976 Unknown [id number] 2.16.840.1.381509.3.579.2. 727 1976 Unknown [id number] 2.16.840.1.066548.3.579.2. 593 1976 Unknown [id number] 2.16.840.1.855430.3.579.2. 593 1976 Unknown [id number] 2.16.840.1.880420.3.579.2. 593 1976 Unknown [id number] 2.16.840.1.782717.3.579.2. 593 1976 Unknown [id number] 2.16.840.1.758071.3.579.2. 593 1976 Unknown [id number] 2.16.840.1.525121.3.579.2. 593 1976 Unknown [id number] 2.16.840.1.535029.3.579.2. 593 1976 Unknown [id number] 2.16.840.1.795177.3.579.2. 593 1976 Unknown [id number] 2.16.840.1.030541.3.579.2. 593 1976 Unknown [id number] 2.16.840.1.240582.3.579.2. 593 1976 Unknown [id number] 2.16.840.1.352145.3.579.2. 593 1976 Unknown [id number] 2.16.840.1.763868.3.579.2. 593 1976 Unknown [id number] 2.16.840.1.963680.3.579.2. 593 1976 Unknown [id number] 2.16.840.1.805005.3.579.2. 593 1976 Unknown [id number] 2.16.840.1.333593.3.579.2. 718 1976 Unknown [id number] 2.16.840.1.467108.3.579.2. 196 1976 Unknown [id number] 2.16.840.1.297257.3.579.2. 1259 1976 Unknown [id number] 2.16.840.1.380708.3.579.2. 1258 1976 Unknown [id number] 2.16.840.1.106246.3.579.2. 9 1976 Unknown [id number] 2.16.840.1.796002.3.579.2. 1259 1959 Self-pay [id number] 1959 Unknown [id number] 2.16.840.1.075318.19 Unknown [id number] 2.16.840.1.134086.3.579.2. 531 Social History Date Type Detail Facility Unknown if ever smoked [facility] Other Start: 06-25-2023 End: 10-20-2023 Sex Assigned At [facility] Start: 11-01-2022 Tobacco smoking status Ex-smoker (fi nding) [facility] [place] Tobacco smoking status Former sm okeless tobacco user, quit more than 30 days ago [facility] [place] Start: 1975 Sex Assigned At Female F [facility] Start: 06-25-2023 Tobacco smoking stat [facility] Smokes tobacco daily [facility] History of [...] Facility 11-01-2022 Functional Status N/A General Del[facility] Clinical Notes 05-16-2022 to 09-09-2024 Carol Webb, [...] No resulting surgeries. 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 Also notes poor balance with no diagnosed [...] sign below. Date: documented in this encounter [facility] 03-15-2024 Note Education Materials Cardiovascular Hypertension, [...] Keep all follow-up visits. Medicines ? Take gntk-zsi-ukodmcg and prescription medicines only as told by [...] work harder to (more content not included)... [facility] 11-25-2022 Note Chief Complaint consultation for umbilical [...] - Denies A (more content not included)... [facility] Comment on above: Result Comment: Elec tronically [...] was counseling done by myself, Ann ANGLIN. [facility] Other 09-28-2022 Evaluation note* Encounter Date Diagnosis Assessment Notes Treatment Notes Treatment Clinical Notes Aug, Abnormal weight gain (ICD-10 - R63.5) Aug, Prediabetes (ICD-10 - R73.03) Aug, Mixed hyperlipidemia (ICD-10 - E78.2) Aug, Hypertension (ICD-10 - I10) Aug, Obstructive sleep apnea (ICD-10 - G47.33) Aug, GERD (gastroesophageal reflux disease) (ICD-10 - K21.9) Aug, Metabolic syndrome X (ICD-10 - E88.81) [facility] Other 06-16-2022 NoteDISCHARGE SUMMARY DISCHARGE DATE: 05/18/2022 [...] pain free and no longer on narcotics. [facility] Signed and Approved by: DR DELGADO MURILLO . 05/20/2022 07:51:00[id number] NoteThe [place], [place] NAME: HORACIO PUGH DATE OF : MEDICAL REC#: [id number] FURNACE BRAZER: [address] [facility] ADMIT DATE: 05/16/2022 11:05:00 TWISTER DOFFER DATE: 05/17/2022 21:20 DICTATING PHYSICIAN: DELGADO MURILLO DICTATION DATE: 05/16/2022 15:02 OP Note OPERATION DATE: 05/16/2022 PROCEDURE: Supracervical hysterectomy with left salpingo-oophorectomy with right salpingectomy and right ovarian cystotomy of approximately 3 cm cyst. SURGEON: Delgado Murillo D.O. NNP: SHUKRI Bailon URINE OUTPUT: Yellow and clear. [...] EDT IFC Signed and Approved by: DR DELGADO MURILLO . 05/23/2022 10:[facility]00[facility] No data available for this section [facility] [place] Evaluation noteNo InformationNort Hair Scynce Other Evaluation noteNo assessment information available [facility] Work Phone: Evaluation note* Diagnosis Neck pain- [...] History TMJ surgery Hospitalization History see above [facility] Other History general Narrative - Reported* Type [...] see above Hospitalization History ER-abd . pain [place] [facility] 09/18/22 [facility] Other Hospital Discharge instructions No data available [...] for Visit Chief Complaint WELLNESS Chief Complaint [facility] labs Additional Source Comments REASON FOR VISIT (unrecogniz ed section and content) Specialty Diagnoses / Procedures Referred By Contac t Referred To Contact Physical Therapy Diagnoses Other spondylosis, lumbar region Procedures [place] PHYS THERAPY EVALUATION Edwige Magaña MD [facility] [place] [address] Carol Webb, PT [address] [place] [address] Referral ID Status Reason Start Date Expiration Date V isits Requested Visits Authorized [id number] Authorized 09/02/2024 03/01/2025 40 40 Patient Care team informatio n (unrecognized section and content) Team Status: Active Member Role Status Dates NON STAFF Primary Care Provider Active Team Status: Inactive Member Role Status Dates NON STAFF Primary Care Provider Active Dedrick Fuller DO [facility] Attending Provider Active Team Status: Inactive Member Role Status Dates NON STAFF Primary Care Provider Active Start: August 30, 2024 End: August 30, 2024 DO PALAK Young Attending Provider Active Start: August 30, 2024 End: August 30, 2024 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 Carrier Relationship Specialty Start Date End Date Sami Marinelli MD [address] [facility] [place] [address] PCP - General Family Medicine 06/26/23 Mortar Carrier Relationship Specialty Start Date End Date Sami Marinelli MD [address] [facility] [place] [id number] PCP - General Family Medicine 06/26/23 INFORMATION SOURCE (unrecogn ized section and content) DATE CREATED AUTHOR 11/26/2022 [facility] DATE CREATED AUTHOR AUTHOR'S ORGANIZ ATION 12/03/2022 [facility] DATE CREATED AUTHOR AUTHOR'S ORGANIZ ATION 03/21/2024 [facility] DATE CREATED AUTHOR AUTHOR'S ORGANIZ ATION 08/31/2024 [facility] DATE CREATED AUTHOR AUTHOR'S ORGANIZ ATION 09/26/2024 [facility] DATE CREATED AUTHOR AUTHOR'S ORGANIZ ATION 09/28/2024 [facility] EPIC Goals (unrecognized section and [...] BE BASED ON THE PRIMARY CLINICAL RECORDS. [facility] provides no warranty or guarantee of the accuracy or completeness of information in this document.
[2024-10-04 07:23] VITALS: BP 117/72; PULSE 91; TEMP 36.2; O2SAT 98
[2024-10-04 07:23] LABS: Glucometer 103 mg/dL (74-106)
[2024-10-04 07:55] VITALS: BP 113/70; PULSE 72; O2SAT 96
[2024-10-04 07:56] VITALS: BP 112/69; PULSE 64; O2SAT 95
[2024-10-04] MEDS: DEXAMETHASONE SOD PHOS 10 MG/ML VIAL INJ (07:57)
[2024-10-04] MEDS: 0.9 % SODIUM CHLORIDE 10 ML SYRINGE - SALINE FLUSH INJ (07:57)
[2024-10-04] MEDS: BUPIVACAINE HCL 0.25% PF 25 MG/10 ML VIAL INJ (07:57)
[2024-10-04] MEDS: LIDOCAINE HCL 2% 400 MG/20 ML MDV 3 ML INJ (07:58)
[2024-10-04] MEDS: IOHEXOL 240 MG/ML - 10 ML VIAL 24 MG INJ (07:58)
--- NOTE | 2024-10-04 08:00 | W.PM.PROCNOT ---
Date of procedure: 10/04/24 Pre-op diagnosis: Pain due to lumbar stenosis with neurogenic claudication Post-op diagnosis: same as pre-op Procedure: Procedure: Bilateral L3-4 transforaminal epidural steroid injection Medications: Bupivacaine 0.25% 2cc, lidocaine 2% 1cc, dexamethasone 10mg The patient was seen and examined in the preoperative holding area.? Informed consent was obtained and placed on the chart.? Patient was brought to the medical procedure unit and placed in the prone position where a timeout was completed verifying the correct patient, procedure site, position, and planned special equipment using sterile aseptic technique.? Under direct fluoroscopic visualization a 25-gauge Quincke tipped spinal needle was advanced at level left L3-4 to the designated neural foramen where contrast dye was injected to show adequate spread.? There was no evidence of vascular or adverse uptake.? Epidural spread was appreciated.? The above-mentioned injectate was then placed in a 1.5 mL aliquot preceded by negative aspiration.? The needle was removed. The same procedure, at the same level, was completed on the opposite side. ? Patient was taken to the postprocedural recovery area and monitored for an appropriate length of time before found suitable for discharge in the accompaniment of a responsible adult. Anesthesia: Local Surgeon: Hebert Jara Pathology: none sent Condition: stable Disposition: no change
== END 2024-10-04 08:04 | disposition home or self-care (01) ==
PROVIDERS: PCP Family Medicine; Visit Provider Anesthesiology
DX: M48.062 Spinal stenosis, lumbar region with neurogenic claudication (principal); E11.9 Type 2 diabetes mellitus without complications; Z79.85 Long-term (current) use of injectable non-insulin antidiabetic drugs
CPT/HCPCS: 36415; 64483; 82948; J0665; J1100; Q9966

== ENCOUNTER 2024-10-07 07:23 | Outpatient (OUT) | payer OTHER, SELFPAY ==
--- OUTSIDE RECORDS SUMMARY | 2024-10-07 07:27 | XMS_ITS | CCD ---
Author Organization [facility] Care Team Providers Care Legal Arbitrator Name Role Phone Nahid Mccoy Unavailable AldoClarice guzman Unavailable Sami Marinelli Primary Care Physician [phone] Nicola BUCHANAN Attending Unavailable ISMAEL MENJIVAR Referring [...] HOY, DR GALLARDO Primary Care Unavailable ISMAEL MNEJIVAR Attending Unavailable ISMAEL MENJIVAR Admitting Unavailable ISMAEL MENJIVAR Consulting Unavailable NON STAFF Primary Care Provider UnavailDO Dedrick Alfaro Attending Provider Nicola Neff Attending Unavailab Nicola Anderson Admitting Unavailab SAMI Matos Primary Care Unavailable NON STAFF Primary Care Provider [facility] Un[facility] Admitting Unavailable NON STAFF Primary Care Unavailable Sami Marinelli MD Primary Care Provider [phone] Marek BURK, [place] Attending Unavailable JESSICA SANCHEZ Attending Unavailable DELGADO MURILLO Attending Unavailable CAROL WEBB Attending Unavailable EDWIGE MAGAÑA Referring Unavailable DELGADO MURILLO Attending Unavailable Allergies Allergy Classification Reported Allergen(s) Allergy Type Date of Onset Reaction(s) Facility (7 sources) NITROFURANTOIN, MACROCRYSTALS / Nitrofurantoin, Monohydrate; 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: [nitrofurantoin] Drug Allergy Neck swelling (finding) [facility] (1 source) Albuterol Drug Allergy [facility] Comment on above: NEED TO CUT DOWN ADR ENALIN TO PREVENT SEIZURES (2 sources) Bee/Wasp/Ant venom; 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: [Bee Stings] Allergy to substance Nausea, Swelling [facility] (1 source) PECANS 1 Food allergy [facility] Comment on above: AIRWAY CONSTRICTION (5 sources) Albuterol; 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: [albuterol] Drug Allergy 06-26-20 23 Other [facility] (1 source) Egg; 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: [Eggs] Food allergy (disorder) [facility] (4 sources) Nitrofurantoin; 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: [Macrobid] Drug Allergy 05-02-20 12 [facility] (1 source) PECANS; 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: [PECANS] Food allergy (disorder) [facility] (2 sources) bee venom Drug allergy (disorder) 06-09-20 15 [facility] (2 sources) egg extract Drug Allergy 06-09-20 15 [facility] (2 sources) pecan pollen extract Drug Allergy [facility] (2 sources) tree nut, unspecified Drug allergy (disorder) 06-09-20 15 [facility] (1 source) Nitrofurantoin Drug Allergy 10-01-20 22 [facility] Repository (3 sources) Honey bee venom Allergy to substance 04-05-20 24 [facility] (3 sources) Nitrofurantoin Drug Allergy 05-01-20 18 Swelling [facility] (3 sources) Nitrofurantoin Drug Allergy 04-05-20 24 [facility] (3 sources) Egg-Derived Products Drug Allergy 04-05-20 24 [facility] (3 sources) Other Propensity to adverse reactions 05-13-20 05 [facility] Healthcare Medications Current Medications Medication Drug Class(es) [...] 10/30/22 Status: Ordered take 1 capsule by [facility] every twenty-four hours Omeprazole 40 MG 1 [...] 2 Chronic Other aftercare (1 source) 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; 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: [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 THERAPY] Onset: 2 Episodic Other [...] MDRD (S/P/Bld) [Vol rate/Area] mL/min/{1.73_m2} Normal [facility] Comment on above: Performed By: #### L IPID, BMP #### [facility] [address] [place] [address] [place] Calcium [Mass/volume] in Ser um or PlasmaOrdered By: Dedrick Fuller on 08-30-2024 Calcium [Mass/Vol] 9.9 mg/dL Normal 8.6-10.3 [facility] Comment on above: Performed By: #### L IPID, BMP #### [facility] [address] [id number] [place] Carbon dioxide, total [Moles /volume] in Serum or PlasmaOrdered By: Dedrick Fuller on 08-30-2024 CO2 [Moles/Vol] 26.6 mmol/L Normal 21.0-31.0 [facility] Comment on above: Performed By: #### L IPID, BMP #### [facility] [address] [id number] [place] Chloride [Moles/volume] in S altagracia or PlasmaOrdered By: Dedrick Fuller on 08-30-2024 Chloride [Moles/Vol] 104 mmol/L Normal 98-107 [facility] Comment on above: Performed By: #### L IPID, BMP #### [facility] [address] [id number] [place] Cholesterol [Mass/volume] in Serum or PlasmaOrdered By: Dedrick Fuller on 08-30-2024 Cholesterol [Mass/Vol] 218 mg/dL High 140-200 [facility] Comment on above: Chol less than 200 m g/dl low riskChol 201-239 mg/dl borderline riskChol 240 mg/dl and greater high risk Result Comment: Chol less than 200 mg/dl low risk Chol 201-239 mg/dl borderline risk Chol 240 mg/dl and greater high risk Performed By: #### L IPID, BMP #### [facility] [address] [id number] [place] Cholesterol in LDL Calc [Mas s/Vol]Ordered By: Dedrick Fuller on 08-30-2024 Cholesterol in LDL [Mass/Vol] 134 mg/dL High 0-100 [facility] Comment on above: LDL ATP III CLASSIFI CATIONLDL less than 100 mg/dL OptimalLDL 100-129 mg/dL Near or above optimalLDL 130-159 mg/dL Borderline highLDL 160-189 mg/dL HighLDL greater than 189 mg/dL Very high Cholesterol in VLDL Calc [Ma ss/Vol]Ordered By: Dedrick Fuller on 08-30-2024 Cholesterol in VLDL [Mass/Vol] 46 mg/dL [facility] Creatinine [Mass/volume] in Serum or PlasmaOrdered By: Dedrick Fuller on 08-30-2024 Creatinine [Mass/Vol] 0.75 mg/dL Normal 0.60-1.20 [facility] Comment on above: Performed By: #### L IPID, BMP #### [facility] [address] [id number] [place] Glucose [Mass/volume] in Ser um or PlasmaOrdered By: Dedrick Fuller on 08-30-2024 Glucose [Mass/Vol] 95 mg/dL Normal 70-100 [facility] Comment on above: ADA recommended refe rence rangeRandom Glucose Reference Range is dependent on time and content of last meal. Glucose of more than 200 mg/dL in a nonstressed, ambulatory subject supports the diagnosis of Diabetes Mellitus. Result Comment: [facility] Glucose Reference Range is dependent on time and content of last meal. Glucose of more than 200 mg/dL in a nonstressed, ambulatory subject supports the diagnosis of Diabetes Mellitus. ADA recommended reference range Performed By: #### L IPID, BMP #### [address] Lipid Panelon 08-30-2024 LDL Cholesterol,Calculated 134 mg/dL High 0-100 [facility] Comment on above: Result Comment: LDL ATP III CLASSIFICATION LDL less than 100 mg/dL Optimal LDL 100-129 mg/dL Near or above optimal LDL 130-159 mg/dL Borderline high LDL 160-189 mg/dL High LDL greater than 189 mg/dL Very high Performed By: #### L IPID, BMP #### [address] Triglyceride w/Reflex 231 mg/dL High 0-149 [facility] Comment on above: Result Comment: TRIG ATP III CLASSIFICATION TRIG less than 150 mg/dL Normal TRIG 150-199 mg/dL Borderline high TRIG 200-500 mg/dL High TRIG greater than 500 mg/dL Very high Standard traceable to the Center for Disease Conrtrol and Prevention (CDC) test method. Performed By: #### L IPID, BMP #### [address] VLDL CHOLESTEROL 46 mg/dL Normal [facility] Comment on above: Performed By: #### L IPID, BMP #### [address] No Panel InformationOrdered By: Dedrick Fuller on 08-30-2024 Estimated GFR (CKD-EPI) > 60.0 mL/Min [facility] Creatinine Clearance (Chem N/A [facility] Potassium [Moles/volume] in Serum or PlasmaOrdered By: Dedrick Fuller on 08-30-2024 Potassium [Moles/Vol] 4.1 mmol/L Normal 3.5-5.1 [facility] Comment on above: Performed By: #### L IPID, BMP #### [facility] [address] [place] [address] Serum or plasma anion gap de terminationOrdered By: Dedrick Fuller on 08-30-2024 Anion gap [Moles/Vol] 13.5 mmol/L Normal 6.0-15.0 [facility] Comment on above: Performed By: #### L IPID, BMP #### [facility] [address] [place] [address] Serum or plasma high density lipoprotein (HDL) cholesterol measurementOrdered By: Dedrick Fuller on 08-30-2024 Cholesterol in HDL [Mass/Vol] 38 mg/dL Normal 23-92 [facility] Comment on above: HDL CHOL ATP-III CLA SSIFICATION Cardiovascular RiskHDL > or equal to 60 mg/dL LOWHDL < 40 mg/dL HIGH Result Comment: HDL CHOL ATP-III CLASSIFICATION Cardiovascular Risk HDL > or equal to 60 mg/dL LOW HDL < 40 mg/dL HIGH Performed By: #### L IPID, BMP #### [address] Serum or plasma total choles terol/high density lipoprotein (HDL) cholesterol mass ratOrdered By: Dedrick Fuller on 08-30-2024 Cholesterol.total/Mirta sterol in HDL [Mass ratio] 5.7 {ratio} Normal <5.0 [facility] Comment on above: Result Comment: PERF ORMED BY: [place] [address] PATHOLOGIST INTELLIGENCE ANALYST IRMA MARCELO M.D. Performed By: #### L IPID, BMP #### [facility] [address] [place] [address] Sodium [Moles/volume] in Ser um or PlasmaOrdered By: Dedrick Fuller on 08-30-2024 Sodium [Moles/Vol] 140 mmol/L Normal 136-145 [facility] Comment on above: Performed By: #### L IPID, BMP #### [facility] [address] [place] [address] Triglyceride [Mass/volume] i n Serum or PlasmaOrdered By: Dedrick Fuller on 08-30-2024 Triglyceride [Mass/Vol] 231 mg/dL High 0-149 [facility] Comment on above: TRIG ATP III CLASSIF ICATIONTRIG less than 150 mg/dL NormalTRIG 150-199 mg/dL Borderline highTRIG 200-500 mg/dL High TRIG greater than 500 mg/dL Very highStandard traceable to the Center for Disease Conrtrol and Prevention (CDC) test method. Urea nitrogen [Mass/volume] in Serum or PlasmaOrdered By: Dedrick Fuller on 08-30-2024 Urea nitrogen [Mass/Vol] 18 mg/dL Normal 7-25 [facility] Comment on above: Performed By: #### L IPID, BMP #### [facility] [address] Coding Summaryon 03-19-2024 Coding Summary HTMLBase 64 XceywmalZKb1ePl+PGhlY WQ+LP8MVVGpP89dgVCzoQ 0fY7NHYYlZMukkUYNHADu MGjLoepMqJL3zgFTmCRNz IC8+KA6qFHEyNcawkHVrb 8Q0oJX1T09trq8jBQepbQ D9LDLhAlPeilpzp7ezoUj 6IDcuNmluOyBt XDQltI32BIC5cL78Wu71d XOeuOJlx1zmjEw5VtHyKF HnLES4kVdsPTpso6QgPVE yH98ohRDub2E2 ANYljInzwFPfThJmjOP5p V4mZDpukbgrh9fhijwkZf y5lg19qFBit5A0sCA8V5D xqzA7IJPpmAEv JcmhyBYUcG0dtmleq0wsq ltqAqSaDVXqRXt9XJf1TS OjxLqoEwDfZO34ASL1QRR xzuVrC4GvBBDy oPzoUzO7n4C6Gj1BC3IMP noaW5ULYECJOQebqBX+PC 31lo38Z1PwWjqxBlk0KPX mJOO4qEE2rZ7n STLuQUvxr7V7xWJ9E0Pcp yOkgs8ns9vvGISnVGqcZ9 5ffCMcx1Z8HLBnfVL8YID kgHbrQjLqsF91 Oyc+KCVsnFsqj4QsMiyuj 7kzg1jxrZr8AjxsYLUrnp QsuPabMTM2v4BkQq6rSNA ucOE5zWP7fD9y KsJxCxT6VCtfD008UiThb QLzEehoZ33mN5JkiLF+PH FlTbp8WQUivEszNG0bB3R hZGRpbmctbGVm yYoyXD7tBDSnzaxlBMSgc T4bFOBeX3w1KzLfPpE2JJ yrT9IxCQSqenkiLt65aP4 lNyCeGeI0VWpf X6ErioK5HHZiqKMjCIvgK GC4Z32in5I9FVMzRSMuYK F4fLW4sP6lnZpnjaormUT mdDsgdmVydGlj EHzfPXicA218XZXjsPxlM kNvZGluZyBEYXRlOiAgMD QvMTkvMjAyNDwvdGQ+PHR iLGS3jLqjCWWe lPByXIphWv2jiMkunEbsD L8mQLHftpltTEPxgJ8aGD MfjBPqeZgyOH1wHSItunc fi245CzTySXL8 XQHivTRbO5PcnV7iRwVrT NQsZYKeW6RsoRLuVXtzW7 58MKstFvB7DPJvjbMqO6U sLWFsaWduOiB0 m4I9Ap4Dt2KxfircD5Qbv LYhBaUnXcolFZp1K8VqUi wvdHI+XS62IZGsYX10SAx 0BKT2fNvhXKnm EOPgB2BjxK0pQfPzKYYkJ GRkOyc+PHRhYmxlIHdpZH RoPScxMDAlJyBzdHlsZT0 cDx4dSMRmMYQr sTzkjBClEdWsf1tnCTFpO ZxsGK5pbOpvD4HshHS2UQ Ntz2x0Kn94W48hR5AjpDT +QEMpoSW4pJQ1 tU2aCdJwUqF2BKdnQ091P wCzxVJnZufhb4izi9yoyC p6LzS1QCNgogEnnTflQNU 1y6AmXa19F16l IHdpZHRoPSIxNSUiIHZhb Zlwdh6fxM8dFb7+PGNvbC M3lPL5nP6wSuGdIzQ4RJh eD740JnYuvKDc Ufvaa3snq1ssjQm3EjOgA LVkirKkzPheLLQ5h3GlMt 71E8RslKbuu1WhOcy8fh3 5lTWvh6P6xRJ8 R4VeZVIkoltdlDPbeLhpR T6vZQWlnqkbKKAncV6rBC YfH0v2IfUuZjG1CRljA5H xttW1UBPttNNe BFFpgTJArQ6ywrvyo5zxj oznEfKwDPSgBNr8UDv4SQ CixFzoGcHmYGH3ZeI2RBE 3gJZtuQ7oaRot dhtnoP4wCbd+FZT4mQZjj QIEEJ1lEvzggWU+PHRkIH O6cRfmZLwwCKPonV6aZLC pL1b1VlEkXaS3 UCsvP8ZbwaQ8HVHcwKIzS EPoxNHNoS3zfesvl3vlgs abByZxZQVpDZd9QQr0BNP saWduOiBsZWZ0 OqR7SGF1fUCaqE6abAshc nirwG7cAon+QmlydGggRG U2XKn5V9RlErr7UYZziEb vOY7owWGuAKpv So8uoNqujYidSP1aKPLcq jcyv774LfAvl6saWTZmjW QyFGauNGM1H81bq2Z3BCK lBCOwVTC4mZB7 tD1lfNttkhuipRXdnPsje wJkjLhrRMrkWJazO392SK KbsDhiIhKmBXn4L9TxQhp 7HNUrvBvrQU8o tGWeHVgmNj1evEjwcWeuE U4aLWMcyqddf530AiBwp3 koOAIvrYTxJLzbUEM9Z69 nj1J8YIArTZUp HEE3tJT7zB0ssIgwyrmcm GVmdDsgdmVydGljYWwtYW qcH364OEPusLabQuJtiXv 7C8GhVnh6PCJx jAhpMQ4loPMvGOyuAu9zf PcseThaCZ2tMTMlfretb0 09JoGkx5liMWVwuOLlIJm uPYZ7Q86cg5X5 XHAfKUYdZTF9jZJ2pR9sf GlnbjogbGVmdDsgdmVydG ipOEgmWIufN046JTXspVo nPlBhdGllbnQg XQkqMCz0H9CtXyqwjBX+P W83KOUmNR24fZBaiHFvk7 pzfZv6LjPyMLGuGDW2sJz oCRddo6FbNQRy D22mtSTvg5P0BMJevUncf VZbJxGnnZK2xD2sKZywrz mhq0nmckikFmyim3qhun4 1nD07G01mSJqr ZHRoPSIzMCUiIHZhbGlnb i8aiD6iNu2+GURptMF4fK F8nX9qKBJdPqP2UHguE76 9InRvcCIvPjxj m8tsj2pfpGr3RlD1TXIbc nFhjBsgGOO9k1ShCl98A8 9sIHdpZHRoPSIyMCUiIHZ nmRjesy6keU7a Ii8+GPZphVZ8dKU5tE2uK mAcBpZ3AGuqO767FkTnsT WzDqpbH64uB3KqfYN+PHR pNmz1BDEcnOyb OO6gqESuNNglNr0lPRJ2C kAhNrAvXSflB1BvEJMaie jdsfyecOD6QFLgEASzrD9 0Ck7piLtyYXIk kUMEjC3vnwsem6kaskizD lPyLWBuDOn6PHz2PLXwxF mrEiWdZJU3EwN6QAA9uJU xuC5dmHqkwblk jV5wX6SaKBOiolrgBy08m P5lJjPvLpY7KUemOfu+Q0 2KXDUJARAMTLQOWS5VPF9 RI75OUCufqUG+ JRHrKDH6fMylZSezUHNxn D9aGXFnY0x7XtDkKrG5DI phX5GmWTMgmsvtWi56hU6 qRaGqUsK4IGwp K1GdlmB5JWAudTZmONapS SP8V30gi0A6RRRfZTVzUN F4iNT7zW0fwZsidwbhjEY mdDsgdmVydGlj UTjaRSsrS187NQEvtAwhS sG7JrV9JdT5OnM2I2MvWz v1XFYzhVqgML5eqJJkKWa nTl1dwBgfnQqg CI7tQBKxtmmdXVPnpF7gX BTviYKyqBvkOU3wGAMumi vzb639PeSpEPT7YKVqkHQ dL3IbrY3gDkLk HROeHPDsC7NedNYpJVjtC 886RWqiPrL2IACmjeKmI0 TjMXNnuNjeRcD8n7E2Wp3 0NyBZZWFyczwv dGQ+FFUuHZQ7tFssABmbX CAijN3uXFQfT1x6PfLtVr A6NDzsS7YbMZJtulepXp9 9oD3qThCyTwF0 ZCkgA1ZhfnA0IYOipDMkQ DelFFE6L68is3U2JLFbIY HbEMU1tWG9mQ6skRqwtyt gbGVmdDsgdmVy wPgkCFhbQHfqB843KTOmi DsnPkZFTUFMRTwvdGQ+PH KrLXU3xVumGJdeEDNbfA2 eTNXjB4o3FfFn PwC5TIlxQ6PtSKAzxbjgT b99gX9tXgUlObP9FQbaC9 GiunP8HFCzcJGwUIsuVCO 9I90nj8W5KSKs PNMxQWI4aNV4nC7lmLkov jogbGVmdDsgdmVydGljYW mrHJxyC274GJHdkNqzAbV qCGNhCM8rvYsu dGQ+DM83yc22J2EyHuyzJ jk3BIUyIJO8jZH7eF8qZR HgTAlyl5K9sXY3C6VjffW sgm1vl0hdPJFn WApqH13zfRFgu7C6MTDpq WT8PGLhcPuyWqXkoB10Ux c+AVLbwEsiv1GiNobeb9g zw3ynbXe6HfOq VYIjdoHorAiwSNB8x6UfX z92M98tVKrfTIMwLPRuAV BkCAHukMvxbv3vdB0cVi2 +ULSdyHP7lNQ9 iP8zIiTwAiC4JMfyL889Y uCmlRHkEamjn4sgd4fzxD p3ZuJhRLPkvzQlzNbfLPF 5n8MiTa47W2Vd zTeil9TxUbv4ix84dXDzm 5R1wRS3C2TgZCYqqlvmqX MqpOjnRB5mJZTxegdvJTX xxC6sMLPsC0a3 DxPdIaN4TIltR4RipkV4N GKfxJBrRVKvxIJReD2xqn evg8gubwitPwAkGNNpHZb 8KFb7SGPfoHih WiPtQEZ0YwQ7EMO8kQHom O0juZfilmngyZ0rYkn+UG k5a5ecmAGjHV3orZZ0YI4 6AN72xMXme5E9 kFG9F8CiZHVglvlbnlsau DX0RTMgWPQgxD37Py3neN pjXd5tVSHmLIG6BZKjfVY vL1CikP3dSvDs BCGxECVkH5JagYOoSTkrU 018ZIeeTcD6BAQzbcHdW4 CjGBXuvDglDqK3t5T2Lv8 ZHE96CD09VV64 uTXfo0V5nIZ1Y4IjXXTog ebyxmkwlPA7WSUcHKXdqC 76Ts4jpBznTe6fJXNuRRU 8ULJgfZVtM1So nW9oSaXcZJKoATJmW3Ckk WWdRSsaV060BXbdPiI9LE GwqcCpQ2IhFNRlcZnlUzO 7t6E5Oo8YTy29 QE80GW16fFTyc7J6cZC6P 8OmSPJmdbzpufaefQL8NI SkMVUraE66Ow9htLraEb1 dQBHzWID1EKKu jGQpP5IywZ1aGdUkCAMgC XRuW4SraQZsIWlcY666XN pcWsD9JPMsdhZzG9FyWFC ysHzjXpK5x2D2 Rg9EPStuona3H7HfMltjh HI+NY99AOUxHK42lVDtfK Mbp4vknTg3RcQgNGPvGXY 4yNybSAcvz3Bt ZXI (more content not included)... Normal [facility] Ambulance Noteon 03-17-2024 Ambulance Note [id number]#[id number] OTGTIFF [facility] C Urineon 03-17-2024 C Urine Urine Culture ordere d as a result of parameters set on specific urine dip and urine microsopic results. >100,000 cfu/ml Lactobacillus species Normal vaginal oleg isolated 10,000 cfu/ml Corynebacterium species (DIPTHEROID) No YOLANDE performed on this organism No pathogens isolated [facility] Comment on above: Performed By: #### 5 [id number], [id number] ####[facility] (DEFAULT)[address] [place] [address] .Auto Diff 1on 03-15-2024 Auto [place] % 3 % Normal 12-12 [facility] Comment on above: Performed By: #### 5 [id number], [id number], [id number], [id number], [id number], 8765078, 7783517 #### [facility] (DEFAULT) [address] [place] [address] 52548 Baso Abs# 0.1 x10 Normal 0.0-0.2 [facility] Comment on above: Performed By: #### 5 [id number], [id number], [id number], [id number], [id number], [id number], 5537071 #### [facility] (DEFAULT) [address] [place] [address] 99259 Basophils/100 WBC (Bld) 0.7 % Normal 0.2-2.0 [facility] Comment on above: Performed By: #### 5 [id number], [id number], [id number], [id number], [id number], 5870978, 1147019 #### [facility] (DEFAULT) [address] [place] [address] 45493 Eos Abs# 0.1 x10 Normal 0.0-0.4 [facility] Comment on above: Performed By: #### 5 [id number], [id number], [id number], [id number], [id number], 5611298, 9865530 #### [facility] (DEFAULT) [address] [place] [address] 15857 Eosinophils/100 WBC (Bld) 0.7 % Low 0.9-4.0 [facility] Comment on above: Performed By: #### 5 [id number], [id number], [id number], [id number], [id number], 8781181, 8204495 #### [facility] (DEFAULT) [address] [place] [address] 37040 Lymph Abs# 2.2 x10 Normal 1.3-2.9 [facility] Comment on above: Performed By: #### 5 [id number], [id number], [id number], [id number], [id number], 7258112, 9930446 #### [facility] (DEFAULT) [address] [place] [address] 50141 Lymphocytes/100 WBC (Bld) 14 % Normal 14-48 [facility] Comment on above: Performed By: #### 5 [id number], [id number], [id number], 69927770, [id number], 9791481, 4268141 #### [facility] (DEFAULT) [address] [place] [address] [place] Abs# 0.5 x10 Normal 0.0-0.8 [facility] Comment on above: Performed By: #### 5 [id number], [id number], [id number], [id number], [id number], 5804612, 8688892 #### [facility] (DEFAULT) [address] [place] [address] Neut Abs# 13.5 x10 High 1.5-9.2 [facility] Comment on above: Result Comment: Slid e Reviewed Performed By: #### 5 [id number], [id number], [id number], [id number], 6696053531, 4117812, 4493415 #### [facility] (DEFAULT) [address] [place] [address] Neutrophils/100 WBC (Bld) 82 % Normal 44-88 [facility] Comment on above: Performed By: #### 5 [id number], [id number], [id number], 80073031, [id number], 8529089, 8988487 #### [facility] (DEFAULT) [address] [place] [address] CBC w/ Auto Diffon 4 Erythrocyte distribution width (RBC) [Ratio] 13.3 % Normal 11.5-15.0 [facility] Comment on above: Performed By: #### 5 [id number], [id number], [id number], 75945730, 5851987109, 2028157, 3958957 #### [facility] (DEFAULT) [address] [place] [address] Hematocrit (Bld) [Volume fraction] 45.0 % High 33.7-40.4 [facility] Comment on above: Performed By: #### 5 [id number], [id number], [id number], 58802137, 8472251272, 2220842, 9619347 #### [facility] (DEFAULT) [address] [place] [address] 00732 Hemoglobin (Bld) [Mass/Vol] 15.0 g/dL Normal 11.3-15.9 [facility] Comment on above: Performed By: #### 5 [id number], [id number], [id number], 74613663, 5428042516, 0607463, 6647647 #### [facility] (DEFAULT) [address] [place] [address] Man Diff? Auto Invalid Interpretation Code [facility] Comment on above: Performed By: #### 5 [id number], [id number], [id number], 20810960, 4973827378, 6782128, 6779579 #### [facility] (DEFAULT) [address] [place] [address] 47800 MCH (RBC) [Entitic mass] 32 pg Normal 24-34 [facility] Comment on above: Performed By: #### 5 [id number], [id number], 0823233822, 78646334, 4340505718, 2743042, 6595969 #### [facility] (DEFAULT) [address] [place] [address] 75473 MCHC (RBC) [Mass/Vol] 33 g/dL Normal 26-37 [facility] Comment on above: Performed By: #### 5 [id number], [id number], 3481653988, 31444195, 7934101735, 0583809, 5747620 #### [facility] (DEFAULT) [address] [place] [address] 45933 MCV (RBC) [Entitic vol] 95 fL Normal 81-100 [facility] Comment on above: Performed By: #### 5 [id number], [id number], 4907611095, 89692438, 2585115834, 7450787, 7345632 #### [facility] (DEFAULT) [address] [place] [address] 83763 Platelet 292 x10 Normal 138-427 [facility] Comment on above: Performed By: #### 5 [id number], [id number], 6501288905, 51348270, 2182755402, 7941729, 2286677 #### [facility] (DEFAULT) [address] [place] [address] 22456 Platelet mean volume (Bld) [Entitic vol] 8.7 fL Normal 6.3-10.2 [facility] Comment on above: Performed By: #### 5 [id number], 4517936145, 9225074315, 57431853, 5906859684, 8593670, 4760308 #### [facility] (DEFAULT) [address] [place] [address] RBC 4.74 x10 Normal 3.70-5.30 [facility] Comment on above: Performed By: #### 5 [id number], 6881916114, 3142865599, 92132286, 0455806527, 1439913, 2695824 #### [facility] (DEFAULT) [address] [place] [address] WBC 16.4 x10 High 3.5-10.5 [facility] Comment on above: Performed By: #### 5 [id number], 1164362990, 1977775608, 27395018, 1185320323, 2177679, 3100962 #### [facility] (DEFAULT) [address] [place] [address] 03741 CMP Standardon 03-15-2024 eGFR Non AA >60 Invalid Interpretation Code [facility] Comment on above: Performed By: #### 5 [id number], [id number], 7289707370, 63571245, 4516882555, 4705109, 4254917 #### [facility] (DEFAULT) [address] [place] [address] 93700 eGFR AA >60 Invalid Interpretation Code [facility] Comment on above: Performed By: #### 5 [id number], 5203104293, 0202431973, 14189206, 8416455185, 1090747, 0236145 #### [facility] (DEFAULT) [address] [place] [address] 63843 Albumin [Mass/Vol] 4.1 g/dL Normal 3.5-5.0 [facility] Comment on above: Performed By: #### 5 [id number], 6109169202, 5912476768, 87296776, 3579815381, 2069130, 8320193 #### [facility] (DEFAULT) [address] [place] [address] 41351 Albumin/Globulin [Mass ratio] 1.3 {ratio} Low 1.4-2.6 [facility] Comment on above: Performed By: #### 5 [id number], 6368221191, 3067154197, 51810222, 0049768312, 3666109, 4150773 #### [facility] (DEFAULT) [address] [place] [address] Alk Phos 39 IU/L Normal 32-91 [facility] Comment on above: Performed By: #### 5 [id number], 4415021048, 5131417370, 13202515, 7303209186, 9363865, 2513016 #### [facility] (DEFAULT) [address] [place] [address] ALT [Catalytic activity/Vol] 32.0 U/L Normal 14.0-54.0 [facility] Comment on above: Performed By: #### 5 [id number], 4550457860, 3099611191, 95301450, 4732964980, 3636128, 1801796 #### [facility] (DEFAULT) [address] [place] [address] 23977 Anion gap [Moles/Vol] 13.0 mmol/L Normal 5.0-19.0 [facility] Comment on above: Performed By: #### 5 [id number], 6686914013, 2255465544, 94100587, 8754850319, 4922143, 4220614 #### [facility] (DEFAULT) [address] [place] [address] 89739 AST [Catalytic activity/Vol] 25 U/L Normal 15-41 [facility] Comment on above: Performed By: #### 5 [id number], [id number], [id number], [id number], [id number], 4756476, 3966564 #### [facility] (DEFAULT) [address] [place] [address] 38415 Bili Total 1.4 mg/dL High 0.3-1.2 [facility] Comment on above: Performed By: #### 5 [id number], [id number], [id number], 20442778, [id number], 1012825, 9179343 #### [facility] (DEFAULT) [address] [place] [address] 82134 Calcium [Mass/Vol] 8.8 mg/dL Low 8.9-10.3 [facility] Comment on above: Performed By: #### 5 [id number], [id number], 5825870256, 82581692, 1436182148, 7475919, 4760700 #### [facility] (DEFAULT) [address] [place] [address] 33371 Chloride [Moles/Vol] 105 mmol/L Normal 101-111 [facility] Comment on above: Performed By: #### 5 [id number], [id number], 3075652057, 70386913, [id number], 2266534, 7720847 #### [facility] (DEFAULT) [address] [place] [address] 74807 CO2 [Moles/Vol] 24 mmol/L Normal 21-32 [facility] Comment on above: Performed By: #### 5 [id number], [id number], 8392050226, 56698956, 1628279337, 2599167, 8337123 #### [facility] (DEFAULT) [address] [place] [address] 17903 Creatinine [Mass/Vol] 0.72 mg/dL Normal 0.60-1.30 [facility] Comment on above: Performed By: #### 5 [id number], [id number], 7551872128, 23963577, 3283230263, 9758328, 2698545 #### [facility] (DEFAULT) [address] [place] [address] 35975 Globulin (S) [Mass/Vol] 3.0 g/dL Normal 1.5-4.3 [facility] Comment on above: Performed By: #### 5 [id number], [id number], 5699917684, 01352768, 7335140553, 7773795, 7113797 #### [facility] (DEFAULT) [address] [place] [address] 79022 Glucose [Mass/Vol] 124.0 mg/dL High 74.0-118.0 [facility] Comment on above: Performed By: #### 5 [id number], [id number], 0718935164, 32981274, 4353750059, 1940196, 9495756 #### [facility] (DEFAULT) [address] [place] [address] 20644 Osmolality 278 mOsm/L Invalid Interpretation Code [facility] Comment on above: Performed By: #### 5 [id number], [id number], 2125614590, 73482590, 6521253203, 0034553, 0100171 #### [facility] (DEFAULT) [address] [place] [address] 94452 Potassium [Moles/Vol] 4.0 mmol/L Normal 3.6-5.1 [facility] Comment on above: Performed By: #### 5 [id number], [id number], 8947789149, 52981857, 0904863151, 8705726, 2267082 #### [facility] (DEFAULT) [address] [place] [address] 10729 Protein [Mass/Vol] 7.1 g/dL Normal 6.5-8.1 [facility] Comment on above: Performed By: #### 5 [id number], [id number], 8349194878, 07408238, 9420866160, 2773427, 7285854 #### [facility] (DEFAULT) [address] [place] [address] 28071 Sodium [Moles/Vol] 138.0 mmol/L Normal 136.0-144.0 [facility] Comment on above: Performed By: #### 5 [id number], 8001120655, 0712643988, 99047592, 5558169788, 3538256, 3774304 #### [facility] (DEFAULT) [address] [place] [address] 02475 Urea nitrogen [Mass/Vol] 15 mg/dL Normal 8-26 [facility] Comment on above: Performed By: #### 5 [id number], 5184732252, 3447693914, 93807967, 4123083609, 8805080, 5482013 #### [facility] (DEFAULT) [address] [place] [address] 47283 Urea nitrogen/Creatinine [Mass ratio] 20.8 mg/mg High 4.6-16.2 [facility] Comment on above: Performed By: #### 5 [id number], [id number], 9285021106, 40409464, 1870182712, 3890103, 9758931 #### [facility] (DEFAULT) [address] [place] [address] 23216 Breakpoint Chem Normal [facility] Comment on above: Performed By: #### 5 [id number], 9405702418, 7046209253, 06394319, 3608440757, 2207226, 8555125 #### [facility] (DEFAULT) [address] [place] [address] 85506 ED Clinical Summaryon 2023 ED Clinical Summary [facility] - Emergency Department [address] [place] [address] 69216 ED Clinical Summary PERSON INFORMATION Name: HORACIO KEATING Age: 48 Years Sex: FEMALE : 1975 MRN: Acct#: Visit Reason: Shortness of breath; Anxiety; Blood pressure check; SOB Arrival: 03/15/2024 17:56:51 Discharge: 03/15/2024 20:31:00 LOS: 000 02:35 Check In: 03/15/2024 17:56:51 Checkout:03/15/2024 20:31:00 Address: [address] [place] [address] PCP: SAMI MARINELLI PROVIDER INFORMATION Provider Role [...] Physical Exa (more content not included)... [facility] ED Note - Physicianon 2023 ED Note [...] No lymphadenopathy. Psychiatric: (more content not included)... [facility] ED Note-Nursingon 03-15-2024 ED Note-Nursing Patient presents to the ER via [facility] for shortness of breath, anxiety. Patient [...] cannula. 12 lead was regular in rate [facility] ED Patient Summaryon 024 ED Patient Summary [facility] - Emergency Department [address] [place] [address] 74689 PATIENT DISCHARGE INSTRUCTIONS Patient Information Name: HORACIO KEATING Age: 48 Years Date of : 1975 Reason For Visit: Shortness of breath; Anxiety; Blood pressure check; SOB Arrival Time: 03/15/2024 17:56:51 Primary Care Physician: SAMI MARINELLI Attending Physician: Nicola Neff DO Comment: Visit Diagnosis: Diagnoses This Visit Anxiety ([id number]) Blood pressure check ([id number]) Hypertension (I10) Panic attack (F41.0) Shortness of breath ([id number]) Urinary tract infection (N39.0) The Pharmacy at [facility] is open Friday through [...] alcohol and/or drug addiction problems; contact the [facility] 23/06 Crisis Hotline -Text 5RVVU eu [phone]. If you received any narcotics, sedation, or [...] legal documents With: Address: When: SAMI MARINELLI [address] [place] [address] [address] [place] [id number] Business (1) Within 3 to 5 days Comments: Call for follow up appointment Return if symptoms worsen Medication Information: The exam and treatment you received today in the [facility] Emergency Department were for an urgent problem and are not intended as complete care. It is important for you to follow up with a doctor, nurse practitioner, or physician?s roofer assistant for ongoing care. If your symptoms [...] so we can reach you if necessary. [facility] Emergency Department has provided you with a complete list of medications post discharge. Please inform your bone worker/provider of your visit and for further instruction [...] Vitals an (more content not included)... Normal [facility] Extra Greenon 03-15-2024 Tube Collected Yes Invalid Interpretation Code [facility] Comment on above: Performed By: #### 5 [id number], [id number], 2344912256, 58296430, 0784728383, 1519936, 9953626 #### [facility] (DEFAULT) [address] [place] [address] 15187 Extra Redon 03-15-2024 Tube Collected Yes Invalid Interpretation Code [facility] Comment on above: Performed By: #### 5 [id number], [id number], 1753496759, 76577745, 6128465432, 5783038, 4339311 #### [facility] (DEFAULT) [address] [place] [address] 48633 PTon 03-15-2024 INR Coag (PPP) [Relative time] 0.94 {INR} Normal 0.91-1.11 [facility] Comment on above: Performed By: #### 5 [id number], [id number], 6512388497, 87328981, 6068207269, 7752291, 0936745 #### [facility] (DEFAULT) [address] [place] [address] 89162 PT 9.8 second(s) Normal 9.7-11.8 [facility] Comment on above: Performed By: #### 5 [id number], 0940531697, 3247993861, 41174452, 9831765900, 8265299, 7596022 #### [facility] (DEFAULT) [address] [place] [address] 79911 TnI HSon 03-15-2024 Troponin I High Sensitivity 7.7 pg/mL Normal <=15.0 [facility] Comment on above: Performed By: #### 5 [id number], 6654939697, 4189181937, 61572922, 0857381195, 9811006, 7808349 #### [facility] (DEFAULT) [address] [place] [address] UA Zryam2sk 03-15-2024 UA Amorph. 1+ [facility] Comment on above: Order Comment: Urina lysis Microscopic order added on by Discern Expert Rules system. Performed By: #### 5 [id number], [id number], 6269732 ####[facility] (DEFAULT)[address] [place] [address] UA Bacteria 3+ Normal [facility] Comment on above: Order Comment: Urina lysis Microscopic order added on by Discern Expert Rules system. Performed By: #### 5 [id number], [id number], 1286519 ####[facility] (DEFAULT)[address] [place] [address] UA Mucous 1+ [facility] Comment on above: Order Comment: Urina lysis Microscopic order added on by Dis[employer] Expert Rules system. Performed By: #### 5 [id number], [id number], 9151652 ####[facility] (DEFAULT)[address] [place] [address] UA RBC 3-5 [facility] Comment on above: Order Comment: Urina lysis Microscopic order added on by Discern Expert Rules system. Performed By: #### 5 [id number], 9094937407, 5286839 ####[facility] (DEFAULT)[address] [place] [address] UA Renal Epi Rare Normal [facility] Comment on above: Order Comment: Urina lysis Microscopic order added on by Dis[employer] Expert Rules system. Performed By: #### 5 [id number], [id number], 4916133 ####[facility] (DEFAULT)[address] [place] [address] UA Squam Epi Many [facility] Comment on above: Order Comment: Urina lysis Microscopic order added on by Discern Expert Rules system. Performed By: #### 5 [id number], 2145573884, 4493494 ####[facility] (DEFAULT)[address] [place] [address] UA WBC 3-5 Normal [facility] Comment on above: Order Comment: Urina lysis Microscopic order added on by Discern Expert Rules system. Performed By: #### 5 [id number], [id number], 3253739 ####[facility] (DEFAULT)[address] [place] [address] UA w Culture if Ind Standard on 03-15-2024 Breakpoint UA [facility] Comment on above: Performed By: #### 5 [id number], [id number], 0701044 ####[facility] (DEFAULT)[address] [place] [address] Color (U) Yellow [facility] Comment on above: Performed By: #### 5 [id number], [id number], 6503564 ####[facility] (DEFAULT)[address] [place] [address] Culture? Indicated Invalid Interpretation Code [facility] Comment on above: Result Comment: Resu lt created by rule GL_MAGR_ADD_UA_CULT Result created by rule GL_MAGR_ADD_UA_CULT Result created by rule GL_MAGR_ADD_UA_CULT1 Result created by rule GL_MAGR_ADD_UA_CULT Performed By: #### 5 [id number], [id number], 8953790 ####[facility] (DEFAULT)[address] [place] [address] Glucose (U) [Mass/Vol] Negative [facility] Comment on above: Performed By: #### 5 [id number], [id number], 0689475 ####[facility] (DEFAULT)[address] [place] [address] 16797 Ketones Ql (U) Negative [facility] Comment on above: Performed By: #### 5 [id number], [id number], 1110130 ####[facility] (DEFAULT)[address] [place] [address] 09586 Micro? Indicated Invalid Interpretation Code [facility] Comment on above: Result Comment: Resu lt created by rule GL_MAGR_ADD_UA_MICRO Performed By: #### 5 [id number], [id number], 5215618 ####[facility] (DEFAULT)[address] [place] [address] 97635 UA Bilirubin Negative Normal [facility] Comment on above: Performed By: #### 5 [id number], [id number], 0566215 ####[facility] (DEFAULT)[address] [place] [address] 02525 UA Blood TRACE Abnormal NEGATIVE [facility] Comment on above: Performed By: #### 5 [id number], [id number], 2602516 ####[facility] (DEFAULT)[address] [place] [address] 95155 UA Clarity SL CLOUDY Abnormal CLEAR [facility] Comment on above: Performed By: #### 5 [id number], [id number], 2383416 ####[facility] (DEFAULT)[address] [place] [address] 44074 UA Leuk Est LARGE Abnormal NEGATIVE [facility] Comment on above: Performed By: #### 5 [id number], [id number], 9316427 ####[facility] (DEFAULT)[address] [place] [address] 74628 UA Nitrite Negative Normal NEGATIVE [facility] Comment on above: Performed By: #### 5 [id number], [id number], 8976528 ####[facility] (DEFAULT)[address] [place] [address] 95489 UA pH 6.0 Normal 5-8 [facility] Comment on above: Performed By: #### 5 [id number], [id number], 4789117 ####[facility] (DEFAULT)[address] [place] [address] 38976 UA Protein Negative Normal NEGATIVE [facility] Comment on above: Performed By: #### 5 [id number], [id number], 3143643 ####[facility] (DEFAULT)[address] [place] [address] 78654 UA Spec Grav 1.015 Normal 1.001-1.035 [facility] Comment on above: Performed By: #### 5 [id number], [id number], 0936019 ####[facility] (DEFAULT)[address] [place] [address] 12546 UA Urobilinogen 0.2 mg/dL Normal 0.2-1.0 [facility] Comment on above: Performed By: #### 5 [id number], [id number], 8226325 ####[facility] (DEFAULT)[address] [place] [address] Urine Source Clean Catch [facility] Comment on above: Performed By: #### 5 [id number], [id number], 0758573 ####[facility] (DEFAULT)[address] [place] [address] XR Chest 1 View Frontalon XR Chest [...] MD 03/15/24 7:34 pm Technologist: Lizzy BRICEÑO [facility] Calcium [Mass/volume] in Ser um or PlasmaOrdered By: Dedrick Fuller on 08-15-2023 Calcium [Mass/Vol] 9.1 mg/dL 8.6-10.3 [facility] Carbon dioxide, total [Moles /volume] in Serum or PlasmaOrdered By: Dedrick Fuller on 08-15-2023 CO2 [Moles/Vol] 26.7 mmol/L 21.0-31.0 [facility] Chloride [Moles/volume] in S altagracia or PlasmaOrdered By: Dedrick Fuller on 08-15-2023 Chloride [Moles/Vol] 107 mmol/L 98-107 [facility] Cholesterol [Mass/volume] in Serum or PlasmaOrdered By: Dedrick Fuller on 08-15-2023 Cholesterol [Mass/Vol] 166 mg/dL 140-200 [facility] Comment on above: Chol less than 200 m g/dl low riskChol 201-239 mg/dl borderline riskChol 240 mg/dl and greater high risk Cholesterol in LDL Calc [Mas s/Vol]Ordered By: Dedrick Fuller on 08-15-2023 Cholesterol in LDL [Mass/Vol] 95 mg/dL 0-100 [facility] Comment on above: LDL ATP III CLASSIFI CATIONLDL less than 100 mg/dL OptimalLDL 100-129 mg/dL Near or above optimalLDL 130-159 mg/dL Borderline highLDL 160-189 mg/dL HighLDL greater than 189 mg/dL Very high Cholesterol in VLDL Calc [Ma ss/Vol]Ordered By: Dedrick Fuller on 08-15-2023 Cholesterol in VLDL [Mass/Vol] 32 mg/dL [facility] Creatinine [Mass/volume] in Serum or PlasmaOrdered By: Dedrick Fuller on 08-15-2023 Creatinine [Mass/Vol] 0.77 mg/dL 0.60-1.20 [facility] Glucose [Mass/volume] in Ser um or PlasmaOrdered By: Dedrick Fuller on 08-15-2023 Glucose [Mass/Vol] 97 mg/dL 70-100 [facility] Comment on above: ADA recommended refe rence rangeRandom Glucose Reference Range is dependent on time and content of last meal. Glucose of more than 200 mg/dL in a nonstressed, ambulatory subject supports the diagnosis of Diabetes Mellitus. No Panel InformationOrdered By: Dedrick Fuller on 08-15-2023 Estimated GFR (CKD-EPI) > 60.0 mL/Min [facility] Creatinine Clearance (Chem N/A [facility] Potassium [Moles/volume] in Serum or PlasmaOrdered By: Dedrick Fuller on 08-15-2023 Potassium [Moles/Vol] 4.0 mmol/L 3.5-5.1 [facility] Serum or plasma anion gap de terminationOrdered By: Dedrick Fuller on 08-15-2023 Anion gap [Moles/Vol] 10.3 mmol/L 6.0-15.0 [facility] Serum or plasma high density lipoprotein (HDL) cholesterol measurementOrdered By: Dedrick Fuller on 08-15-2023 Cholesterol in HDL [Mass/Vol] 39 mg/dL 23-92 [facility] Comment on above: HDL CHOL ATP-III CLA SSIFICATION Cardiovascular RiskHDL > or equal to 60 mg/dL LOWHDL < 40 mg/dL HIGH Serum or plasma total choles terol/high density lipoprotein (HDL) cholesterol mass ratOrdered By: Dedrick Fuller on 08-15-2023 Cholesterol.total/Mirta sterol in HDL [Mass ratio] 4.3 {ratio} <5.0 [facility] Sodium [Moles/volume] in Ser um or PlasmaOrdered By: Dedrick Fuller on 08-15-2023 Sodium [Moles/Vol] 140 mmol/L 136-145 [facility] Triglyceride [Mass/volume] i n Serum or PlasmaOrdered By: Dedrick Fuller on 08-15-2023 Triglyceride [Mass/Vol] 162 mg/dL 0-149 [facility] Comment on above: TRIG ATP III CLASSIF ICATIONTRIG less than 150 mg/dL NormalTRIG 150-199 mg/dL Borderline highTRIG 200-500 mg/dL High TRIG greater than 500 mg/dL Very highStandard traceable to the Center for Disease Conrtrol and Prevention (CDC) test method. Urea nitrogen [Mass/volume] in Serum or PlasmaOrdered By: Dedrick Fuller on 08-15-2023 Urea nitrogen [Mass/Vol] 10 mg/dL 7-25 [facility] GTT 2 HRon 11-09-2022 Glucose [Mass/Vol] 107 mg/dL Critically high 74-106 [facility] Comment on above: Performed By: #### U LG, CRP #### [facility] [address] [place] [address] [address] Soo Donnelly Glucose [Mass/Vol] 152 mg/dL Normal [facility] Comment on above: Performed By: #### U LG, CRP #### [facility] [address] [place] [address] [address] Soo Donnelly Glucose [Mass/Vol] 121 mg/dL Normal [facility] Comment on above: Performed By: #### U LG, CRP #### [facility] [address] [place] [address] [address] Soo Donnelly Facesheeton 11-05-2022 Facesheet [id number] .[id number]:127 Normal [facility] Physician Referralon 022 Physician Referral [id number] .00CD:127 Normal [facility] CT ABD/PELV W CONon 10-01-20 [...] LUZ ELENA SAUCEDA Date: 2022-10-01 10:31 Normal [facility] CBC AUTO DIFFon 09-18-2022 BASO # 0.0 103/ul Normal 0.0-0.1 [facility] Comment on above: Performed By: #### A NAD #### [facility] [address] [place] [address] Dr. Soo Donnelly Basophils/100 WBC (Bld) 0.4 % Normal 0.2-2.0 [facility] Comment on above: Performed By: #### A NAD #### [facility] [address] [place] [address] Dr. Soo Donnelly EO # 0.1 103/ul Normal 0.0-0.7 [facility] Comment on above: Performed By: #### A NAD #### [facility] [address] [place] [address] Dr. Soo Donnelly Eosinophils/100 WBC (Bld) 1.8 % Normal 0.9-7.0 [facility] Comment on above: Performed By: #### A NAD #### [facility] [address] [place] [address] Dr. Soo Donnelly Erythrocyte distribution width (RBC) [Ratio] 11.9 % Normal 11.0-15.0 [facility] Comment on above: Performed By: #### A NAD #### [facility] [address] [place] [address] Dr. Soo Donnelly Hematocrit (Bld) [Volume fraction] 43.9 % Normal 36.0-48.0 [facility] Comment on above: Performed By: #### A NAD #### [facility] [address] [place] [address] Dr. Soo Donnelly Hemoglobin (Bld) [Mass/Vol] 14.6 g/dL Normal 12.0-16.0 [facility] Comment on above: Performed By: #### A NAD #### [facility] [address] [place] [address] Dr. Soo Donnelly IG # 0.01 10e3/ul Normal 0.00-0.03 [facility] Comment on above: Performed By: #### A NAD #### [facility] [address] [place] [address] Dr. Soo Donnelly IG % 0.1 % Normal 0.0-0.5 [facility] Comment on above: Performed By: #### A NAD #### [facility] [address] [place] [address] Dr. Soo Donnelly LYMPH # 2.7 103/ul Normal 1.2-3.8 [facility] Comment on above: Performed By: #### A NAD #### [facility] [address] [place] [address] Dr. Soo Donnelly Lymphocytes/100 WBC (Bld) 39.9 % Normal 20.5-60.0 [facility] Comment on above: Performed By: #### A NAD #### [facility] [address] [place] [address] Dr. Soo Donnelly MANUAL DIFF REQ NO Normal [facility] Comment on above: Performed By: #### A NAD #### [facility] [address] [place] [address] Dr. Soo Donnelly MCH (RBC) [Entitic mass] 31.7 pg Normal 26.7-34.0 [facility] Comment on above: Performed By: #### A NAD #### [facility] [address] [place] [address] Dr. Soo Donnelly MCHC (RBC) [Mass/Vol] 33.3 g/dL Normal 29.9-35.2 [facility] Comment on above: Performed By: #### A NAD #### [facility] [address] [place] [address] Dr. Soo Donnelly MCV (RBC) [Entitic vol] 95.4 fL Normal 81.0-99.0 [facility] Comment on above: Performed By: #### A NAD #### [facility] [address] [place] [address] Dr. Soo Donnelly MONO # 0.4 103/ul Normal 0.3-0.8 [facility] Comment on above: Performed By: #### A NAD #### [facility] [address] [place] [address] Dr. Soo Donnelly Monocytes/100 WBC (Bld) 5.9 % Normal 1.7-12.0 [facility] Comment on above: Performed By: #### A NAD #### [facility] [address] [place] [address] Dr. Soo Donnelly NEUT # 3.5 103/ul Normal 1.4-6.5 [facility] Comment on above: Performed By: #### A NAD #### [facility] [address] [place] [address] Dr. Soo Donnelly Neutrophils/100 WBC (Bld) 51.9 % Normal 43.0-75.0 [facility] Comment on above: Performed By: #### A NAD #### [facility] [address] [place] [address] Dr. Soo Donnelly Platelet mean volume (Bld) [Entitic vol] 10.8 fL Normal 9.5-13.5 [facility] Comment on above: Performed By: #### A NAD #### [facility] [address] [place] [address] Dr. oSo Donnelly PLT 220 103/ul Normal 150-450 [facility] Comment on above: Performed By: #### A NAD #### [facility] [address] [place] [address] Dr. Soo Donnelly RBC 4.60 106/ul Normal 4.20-5.40 [facility] Comment on above: Performed By: #### A NAD #### [facility] [address] [place] [address] Dr. Soo Donnelly WBC 6.8 103/ul Normal 4.0-11.0 [facility] Comment on above: Performed By: #### A NAD #### [facility] [address] [place] [address] Dr. Soo Donnelly ER URINE PROFILEon 2 Bilirubin Ql (U) Negative Normal NEGATIVE [facility] Comment on above: Performed By: #### U LG, CRP #### [facility] [address] [place] [address] Dr. Soo Donnelly Clarity (U) CLEAR Normal CLEAR [facility] Comment on above: Performed By: #### U LG, CRP #### [facility] [address] [place] [address] Dr. Soo Donnelly Color (U) LT. YELLOW Normal YELLOW [facility] [facility] Comment on above: Performed By: #### U LG, CRP #### [facility] [address] [address] [address] Soo CORTEZ A micrscopic examination will be performed if indicated. Normal [facility] Comment on above: Performed By: #### U LG, CRP #### [facility] [address] [address] [address] Soo Donnelly Glucose Ql (U) Negative Normal NEGATIVE [facility] Comment on above: Performed By: #### U LG, CRP #### [facility] [address] [address] [address] Soo Donnelly Hemoglobin Ql (U) Negative Normal NEGATIVE [facility] Comment on above: Performed By: #### U LG, CRP #### [facility] [address] [place] [address] Dr. Soo Donnelly Ketones Ql (U) Negative Normal NEGATIVE [facility] Comment on above: Performed By: #### U LG, CRP #### [facility] [address] [address] [address] Soo Donnelly LEUKOCYTES Negative Normal NEGATIVE [facility] Comment on above: Performed By: #### U LG, CRP #### [facility] [address] [address] [address] Soo Donnelly Nitrite Ql (U) Negative Normal NEGATIVE [facility] Comment on above: Performed By: #### U LG, CRP #### [facility] [address] [address] [address] Soo Donnelly pH (U) 6.0 [pH] Normal 5-9 [facility] Comment on above: Performed By: #### U LG, CRP #### [facility] [address] [address] [address] Soo Donnelly SPEC GRAVITY 1.015 Normal 1.005-<=1.02 5 [facility] Comment on above: Performed By: #### U LG, CRP #### [facility] [address] [place] [address] Dr. Soo Donnelly UA PROTEIN Negative Normal NEGATIVE/ TRACE [facility] Comment on above: Performed By: #### U LG, CRP #### [facility] [address] [address] [address] Soo Donnelly UR MICRO IND NOT INDICATED Normal [facility] Comment on above: Performed By: #### U LG, CRP #### [facility] [address] [address] [address] Soo Donnelly Urobilinogen Qn (U) 0.2 {Roma'U}/dL Normal 0.2 - 1. 0 [facility] Comment on above: Performed By: #### U LG, CRP #### [facility] [address] [address] [address] Soo Donnelly PROF CHEM 8 (BAS METB)on Anion gap [Moles/Vol] 10.2 mmol/L Normal [facility] Comment on above: Performed By: #### B MP #### [facility] [address] [place] [address] Dr. Soo Donnelly Calcium [Mass/Vol] 8.7 mg/dL Normal 8.5-10.1 [facility] Comment on above: Performed By: #### B MP #### [facility] [address] [place] [address] Dr. Soo Donnelly Chloride [Moles/Vol] 103 mmol/L Normal 98-107 [facility] Comment on above: Performed By: #### B MP #### [facility] [address] [place] [address] Dr. Soo Donnelly CO2 [Moles/Vol] 27.9 mmol/L Normal 21.0-32.0 [facility] Comment on above: Performed By: #### B MP #### [facility] [address] [place] [address] Dr. Soo Donnelly Creatinine [Mass/Vol] 0.80 mg/dL Normal 0.55-1.02 [facility] Comment on above: Performed By: #### B MP #### [facility] [address] [place] [address] Dr. Soo Donnelly EGFR-AF KENYAN >60 Normal >=60 [facility] Comment on above: Performed By: #### B MP #### [facility] [address] [address] [address] Soo Donnelly EGFR-NON AF KENYAN >60 Normal >=60 [facility] Comment on above: Performed By: #### B MP #### [facility] [address] [address] [address] Soo Donnelly Glucose [Mass/Vol] 103 mg/dL Normal 74-106 [facility] Comment on above: Performed By: #### B MP #### [facility] [address] [address] [address] Soo Donnelly Potassium [Moles/Vol] 4.1 mmol/L Normal 3.5-5.1 [facility] Comment on above: Performed By: #### B MP #### [facility] [address] [address] [address] Soo Donnelly Sodium [Moles/Vol] 137 mmol/L Normal 136-145 [facility] Comment on above: Performed By: #### B MP #### [facility] [address] [address] [address] Soo Donnelly Urea nitrogen [Mass/Vol] 11.0 mg/dL Normal 7.0-18.0 [facility] Comment on above: Performed By: #### B MP #### [facility] [address] [address] [address] Soo Donnelly Urea nitrogen/Creatinine [Mass ratio] 13.8 mg/mg Normal [facility] Comment on above: Performed By: #### B MP #### [facility] [address] [address] [address] Soo Donnelly XR KUB 1 VIEWon [...] LUZ ELENA Waters: 2022-09-18 12:12 Normal [facility] MG MAMM SCREEN 3D DEAN CADon 09-12-2022 MG MAMM SCREEN 3D DEAN CAD Patient: HORACIO KEATING Exam Date: 09/12/2022 : 1975 Gender:F Ordering : DR DELGADO MURILLO . Admission #: [id number] Family : Order #: [id number] CLICK HERE TO VIEW EXAM RADIOLOGY REPORT [...] ovarian cancer at age 77. LOCATION: [facility] BREAST COMPOSITION: Scattered areas fibroglandular density. FINDINGS: [...] MD on 09/13/2022 at 07:46 Normal [facility] INSULINon 07-20-2022 Insulin 25.5 uIU/mL Critically high 2.6-24.9 [facility] Comment on above: Performed By: #### U LG, CRP #### [facility] [address] [address] [address] Soo Donnelly T4 LABCORPon 07-20-2022 T4 [Mass/Vol] 7.4 ug/dL Normal 4.5-12.0 [facility] Comment on above: Performed By: #### A NAD #### [facility] [address] [address] [address] Soo Donnelly CBC W MANUAL DIFFon 07-19-20 22 ATYPICAL LYMPH # Normal [facility] Comment on above: Performed By: #### B UN, CREA #### [facility] [address] [place] [address] Dr. Soo Donnelly ATYPICAL LYMPH % Normal [facility] Comment on above: Performed By: #### B UN, CREA #### [facility] [address] [place] [address] Dr. Soo Donnelly BAND # Normal 0.0-0.3 [facility] Comment on above: Performed By: #### B UN, CREA #### [facility] [address] [place] [address] Dr. Soo Donnelly BAND % Normal 0-5 [facility] Comment on above: Performed By: #### B UN, CREA #### [facility] [address] [place] [address] Dr. Soo Donnelly BASOM # 0.00 103/ul Normal 0.00-0.10 [facility] Comment on above: Performed By: #### B UN, CREA #### [facility] [address] [place] [address] Dr. Soo Donnelly BASOM % 0.0 % Critically low 0.2-2.0 [facility] Comment on above: Performed By: #### B UN, CREA #### [facility] [address] [place] [address] Dr. Soo Donnelly BLAST # Normal [facility] Comment on above: Performed By: #### B UN, CREA #### [facility] [address] [place] [address] Dr. Soo Donnelly BLAST % Normal [facility] Comment on above: Performed By: #### B UN, CREA #### [facility] [address] [place] [address] Dr. Soo Donnelly CORRECTED WBC Normal 4.0-11.0 [facility] Comment on above: Performed By: #### B UN, CREA #### [facility] [address] [place] [address] Dr. Soo Donnelly EOS # 0.31 103/ul Normal 0.00-0.70 [facility] Comment on above: Performed By: #### B UN, CREA #### [facility] [address] [place] [address] Dr. Soo Donnelly EOS% 2.0 % Normal 0.9-7.0 [facility] Comment on above: Performed By: #### B UN, CREA #### [facility] [address] [place] [address] Dr. Soo Donnelly HCT 41.6 % Normal 36.0-48.0 [facility] Comment on above: Performed By: #### B UN, CREA #### [facility] [address] [place] [address] Dr. Soo Donnelly HGB 13.8 g/dl Normal 12.0-16.0 [facility] Comment on above: Performed By: #### B UN, CREA #### [facility] [address] [place] [address] Dr. Soo Donnelly LYMPHM # 5.27 103/ul Critically high 1.20-3.80 [facility] Comment on above: Performed By: #### B UN, CREA #### [facility] [address] [place] [address] Dr. Soo Donnelly LYMPHM% 34.0 % Normal 20.5-60.0 [facility] Comment on above: Performed By: #### B UN, CREA #### [facility] [address] [place] [address] Dr. Soo Donnelly MCH 31.5 pg Normal 26.7-34.0 [facility] Comment on above: Performed By: #### B UN, CREA #### [facility] [address] [place] [address] Dr. Soo Donnelly MCHC 33.2 g/dl Normal 29.9-35.2 [facility] Comment on above: Performed By: #### B UN, CREA #### [facility] [address] [place] [address] Dr. Soo Donnelly MCV 95.0 fL Normal 81.0-99.0 [facility] Comment on above: Performed By: #### B UN, CREA #### [facility] [address] [place] [address] Dr. Soo Donnelly METAMYELOCYTE # Normal [facility] Comment on above: Performed By: #### B UN, CREA #### [facility] [address] [place] [address] Dr. Soo Donnelly METAMYELOCYTE % Normal [facility] Comment on above: Performed By: #### B UN, CREA #### [facility] [address] [place] [address] Dr. Soo Donnelly MONOM# 0.93 103/ul Critically high 0.30-0.80 [facility] Comment on above: Performed By: #### B UN, CREA #### [facility] [address] [place] [address] Dr. Soo Donnelly MONOM% 6.0 % Normal 1.7-12.0 [facility] Comment on above: Performed By: #### B UN, CREA #### [facility] [address] [place] [address] Dr. Soo Donnelly MPV 10.1 fL Normal 9.5-13.5 [facility] Comment on above: Performed By: #### B UN, CREA #### [facility] [address] [place] [address] Dr. Soo Donnelly MYELOCYTE # Normal [facility] Comment on above: Performed By: #### B UN, CREA #### [facility] [address] [place] [address] Dr. Soo Donnelly MYELOCYTE % Normal [facility] Comment on above: Performed By: #### B UN, CREA #### [facility] [address] [place] [address] Dr. Soo Donnelly NRBC Normal [facility] Comment on above: Performed By: #### B UN, CREA #### [facility] [address] [address] [address] Soo Donnelly PLT 260 103/ul Normal 150-450 [facility] Comment on above: Performed By: #### B UN, CREA #### [facility] [address] [address] [address] Soo Donnelly RBC 4.38 106/ul Normal 4.20-5.40 [facility] Comment on above: Performed By: #### B UN, CREA #### [facility] [address] [address] [address] Soo Donnelly RDW 12.5 % Normal 11.0-15.0 [facility] Comment on above: Performed By: #### B UN, CREA #### [facility] [address] [address] [address] Soo Donnelly SEG # 8.99 103/ul Critically high 1.40-6.50 [facility] Comment on above: Performed By: #### B UN, CREA #### [facility] [address] [address] [address] Soo Donnelly SEG % 58.0 % Normal 43.0-75.0 [facility] Comment on above: Performed By: #### B UN, CREA #### [facility] [address] [address] [address] Soo Donnelly WBC 15.5 103/ul Critically high 4.0-11.0 [facility] Comment on above: Performed By: #### B UN, CREA #### [facility] [address] [address] [address] Soo Donnelly FREE T3on 07-19-2022 FREE T3 2.62 pg/mlL Normal 2.18-3.98 [facility] Comment on above: Performed By: #### U LG, CRP #### [facility] [address] [address] [address] Soo Donnelly GLYCOHEMOGLOBIN A1Con 2021 ADA RECOMMENDATION SEE BELOW Normal [facility] Comment on above: Result Comment: ADA RECOMMENDED LIMIT 4.0 - 6.0 ADA THERAPEUTIC TARGET < 7.0 ACTION SUGGESTED > 7.0 Performed By: #### U LG, CRP #### [facility] [address] [address] [address] Soo Donnelly Glucose [Mass/Vol] 137 mg/dL Normal [facility] Comment on above: Performed By: #### U LG, CRP #### [facility] [address] [address] [address] Soo Donnelly HbA1c (Bld) [Mass fraction] 6.4 % Critically high 4.5-6.2 [facility] Comment on above: Performed By: #### U LG, CRP #### [facility] [address] [address] [address] Soo Donnelly LIPID PROFILEon 07-19-2022 CHOL-HDL RATIO NORM SEE BELOW Normal [facility] Comment on above: Result Comment: 3.3 - 4.4 LOW RISK 4.4 - 7.1 AVERAGE RISK 7.1 - 11.0 MODERATE RISK >11.0 HIGH RISK Performed By: #### U LG, CRP #### [facility] [address] [address] [address] Soo Donnelly Cholesterol [Mass/Vol] 226 mg/dL Critically high <=200 [facility] Comment on above: Performed By: #### U LG, CRP #### [facility] [address] [address] [address] Soo Donnelly Cholesterol in HDL [Mass/Vol] 33 mg/dL Critically low 40-60 [facility] Comment on above: Performed By: #### U LG, CRP #### [facility] [address] [address] [address] Soo Donnelly Cholesterol in LDL [Mass/Vol] 135.2 mg/dL Normal [facility] Comment on above: Performed By: #### U LG, CRP #### [facility] [address] [address] [address] Soo Donnelly Cholesterol.total/Mirta sterol in HDL [Mass ratio] 6.8 {ratio} Normal [facility] Comment on above: Performed By: #### U LG, CRP #### [facility] [address] [address] [address] Soo Donnelly HDL NORMAL > or = 60 mg/dl - LO W CARDIOVASCULAR RISK <40 mg/dl - HIGH CARDIOVASCULAR RISK Normal [facility] Comment on above: Performed By: #### U LG, CRP #### [facility] [address] [address] [address] Soo Donnelly LDL CALC NORMAL SEE BELOW Normal [facility] Comment on above: Result Comment: <100 mg/dl OPTIMAL 100 - 129 mg/dl NEAR OR ABOVE OPTIMAL 130 - 159 mg/dl BORDERLINE HIGH 160 - 189 mg/dl HIGH >190 mg/dl VERY HIGH Performed By: #### U LG, CRP #### [facility] [address] [address] [address] Soo Donnelly Triglyceride [Mass/Vol] 289 mg/dL Critically high <=150 [facility] Comment on above: Performed By: #### U LG, CRP #### [facility] [address] [address] [address] Soo Donnelly VLDL CALC 57.8 mg/dL Normal [facility] Comment on above: Performed By: #### U LG, CRP #### [facility] [address] [address] [address] Soo Donnelly PROF 14(COMP METB)on 022 Albumin [Mass/Vol] 3.2 g/dL Critically low 3.4-5.0 [facility] [place] Comment on above: Performed By: #### U LG, CRP #### [facility] [address] [address] [address] Soo Donnelly Albumin/Globulin [Mass ratio] 1.1 {ratio} Normal [facility] Comment on above: Performed By: #### U LG, CRP #### [facility] [address] [address] [address] Soo Donnelly ALP [Catalytic activity/Vol] 41 U/L Critically low 46-116 [facility] Comment on above: Performed By: #### U LG, CRP #### [facility] [address] [address] [address] Soo Donnelly ALT [Catalytic activity/Vol] 46 U/L Normal 14-59 [facility] Comment on above: Performed By: #### U LG, CRP #### [facility] [address] [address] [address] Soo Donnelly Anion gap [Moles/Vol] 9.3 mmol/L Normal [facility] Comment on above: Performed By: #### U LG, CRP #### [facility] [address] [address] [address] Soo Donnelly AST [Catalytic activity/Vol] 18 U/L Normal 15-37 [facility] Comment on above: Performed By: #### U LG, CRP #### [facility] [address] [address] [address] Soo Donnelly Bilirubin [Mass/Vol] 0.7 mg/dL Normal 0.2-1.0 [facility] Comment on above: Performed By: #### U LG, CRP #### [facility] [address] [place] [address] Dr. Soo Donnelly Calcium [Mass/Vol] 8.1 mg/dL Critically low 8.5-10.1 [facility] [place] Comment on above: Performed By: #### U LG, CRP #### [facility] [address] [place] [address] Dr. Soo Donnelly Chloride [Moles/Vol] 101 mmol/L Normal 98-107 [facility] Comment on above: Performed By: #### U LG, CRP #### [facility] [address] [place] [address] Dr. Soo Donnelly CO2 [Moles/Vol] 31.1 mmol/L Normal 21.0-32.0 [facility] Comment on above: Performed By: #### U LG, CRP #### [facility] [address] [place] [address] Dr. Soo Donnelly Creatinine [Mass/Vol] 0.77 mg/dL Normal 0.55-1.02 [facility] Comment on above: Performed By: #### U LG, CRP #### [facility] [address] [place] [address] Dr. Soo Donnelly EGFR-AF KENYAN >60 Normal >=60 [facility] Comment on above: Performed By: #### U LG, CRP #### [facility] [address] [address] [address] Soo Donnelly EGFR-NON AF KENYAN >60 Normal >=60 [facility] Comment on above: Performed By: #### U LG, CRP #### [facility] [address] [address] [address] Soo Donnelly Globulin (S) [Mass/Vol] 3.0 g/dL Normal T [facility] Comment on above: Performed By: #### U LG, CRP #### [facility] [address] [address] [address] Soo Donnelly Glucose [Mass/Vol] 104 mg/dL Normal 74-106 [facility] Comment on above: Performed By: #### U LG, CRP #### [facility] [address] [place] [address] Dr. Soo Donnelly Potassium [Moles/Vol] 3.4 mmol/L Critically low 3.5-5.1 [facility] Comment on above: Performed By: #### U LG, CRP #### [facility] [address] [place] [address] Dr. Soo Donnelly Protein [Mass/Vol] 6.2 g/dL Critically low 6.4-8.2 [facility] Comment on above: Performed By: #### U LG, CRP #### [facility] [address] [place] [address] Dr. Soo Donnelly Sodium [Moles/Vol] 138 mmol/L Normal 136-145 [facility] Comment on above: Performed By: #### U LG, CRP #### [facility] [address] [place] [address] Dr. Soo Donnelly Urea nitrogen [Mass/Vol] 16.0 mg/dL Normal 7.0-18.0 [facility] Comment on above: Performed By: #### U LG, CRP #### [facility] [address] [place] [address] Dr. Soo Donnelly Urea nitrogen/Creatinine [Mass ratio] 20.8 mg/mg Normal [facility] Comment on above: Performed By: #### U LG, CRP #### [facility] [address] [address] [address] Soo Donnelly TSHon 07-19-2022 TSH 3.262 uIU/mL Normal 0.358-3.740 [facility] Comment on above: Performed By: #### U LG, CRP #### [facility] [address] [place] [address] Dr. Soo Donnelly CBC AUTO DIFFon 05-18-2022 BASO # 0.0 103/ul Normal 0.0-0.1 [facility] Comment on above: Performed By: #### U LG, CRP #### [facility] [address] [place] [address] Dr. Soo Donnelly Basophils/100 WBC (Bld) 0.2 % Normal 0.2-2.0 [facility] Comment on above: Performed By: #### U LG, CRP #### [facility] [address] [place] [address] Dr. Soo Donnelly EO # 0.0 103/ul Normal 0.0-0.7 [facility] Comment on above: Performed By: #### U LG, CRP #### [facility] [address] [place] [address] Dr. Soo Donnelly Eosinophils/100 WBC (Bld) 0.2 % Critically low 0.9-7.0 [facility] Comment on above: Performed By: #### U LG, CRP #### [facility] [address] [place] [address] Dr. Soo Donnelly Erythrocyte distribution width (RBC) [Ratio] 12.8 % Normal 11.0-15.0 [facility] Comment on above: Performed By: #### U LG, CRP #### [facility] [address] [place] [address] Dr. Soo Donnelly Hematocrit (Bld) [Volume fraction] 35.7 % Critically low 36.0-48.0 [facility] Comment on above: Performed By: #### U LG, CRP #### [facility] [address] [place] [address] Dr. Soo Donnelly Hemoglobin (Bld) [Mass/Vol] 11.5 g/dL Critically low 12.0-16.0 [facility] Comment on above: Performed By: #### U LG, CRP #### [facility] [address] [address] [address] Soo Donnelly IG # 0.07 10e3/ul Critically high 0.00-0.03 [facility] Comment on above: Performed By: #### U LG, CRP #### [facility] [address] [address] [address] Soo Donnelly IG % 0.5 % Normal 0.0-0.5 [facility] Comment on above: Performed By: #### U LG, CRP #### [facility] [address] [address] [address] Soo Donnelly LYMPH # 4.1 103/ul Critically high 1.2-3.8 [facility] Comment on above: Performed By: #### U LG, CRP #### [facility] [address] [place] [address] Dr. Soo Donnelly Lymphocytes/100 WBC (Bld) 28.3 % Normal 20.5-60.0 [facility] Comment on above: Performed By: #### U LG, CRP #### [facility] [address] [place] [address] Dr. Soo Donnelly MANUAL DIFF REQ NO Normal [facility] Comment on above: Performed By: #### U LG, CRP #### [facility] [address] [address] [address] Soo Donnelly MCH (RBC) [Entitic mass] 31.7 pg Normal 26.7-34.0 [facility] Comment on above: Performed By: #### U LG, CRP #### [facility] [address] [address] [address] Soo Donnelly MCHC (RBC) [Mass/Vol] 32.2 g/dL Normal 29.9-35.2 [facility] Comment on above: Performed By: #### U LG, CRP #### [facility] [address] [address] [address] Soo Donnelly MCV (RBC) [Entitic vol] 98.3 fL Normal 81.0-99.0 [facility] Comment on above: Performed By: #### U LG, CRP #### [facility] [address] [place] [address] Dr. Soo Donnelly MONO # 0.8 103/ul Normal 0.3-0.8 [facility] Comment on above: Performed By: #### U LG, CRP #### [facility] [address] [place] [address] Dr. Soo Donnelly Monocytes/100 WBC (Bld) 5.6 % Normal 1.7-12.0 [facility] Comment on above: Performed By: #### U LG, CRP #### [facility] [address] [place] [address] Dr. Soo Donnelly NEUT # 9.4 103/ul Critically high 1.4-6.5 [facility] Comment on above: Performed By: #### U LG, CRP #### [facility] [address] [place] [address] Dr. Soo Donnelly Neutrophils/100 WBC (Bld) 65.2 % Normal 43.0-75.0 [facility] Comment on above: Performed By: #### U LG, CRP #### [facility] [address] [place] [address] Dr. Soo Donnelly Platelet mean volume (Bld) [Entitic vol] 10.8 fL Normal 9.5-13.5 [facility] Comment on above: Performed By: #### U LG, CRP #### [facility] [address] [place] [address] Dr. Soo Donnelly PLT 191 103/ul Normal 150-450 [facility] Comment on above: Performed By: #### U LG, CRP #### [facility] [address] [place] [address] Dr. Soo Donnelly RBC 3.63 106/ul Critically low 4.20-5.40 [facility] Comment on above: Performed By: #### U LG, CRP #### [facility] [address] [place] [address] Dr. Soo Donnelly WBC 14.4 103/ul Critically high 4.0-11.0 [facility] Comment on above: Performed By: #### U LG, CRP #### [facility] [address] [place] [address] Dr. Soo Donnelly BUNon 05-17-2022 Urea nitrogen [Mass/Vol] 8.0 mg/dL Normal 7.0-18.0 [facility] Comment on above: Performed By: #### B UN, CREA #### [facility] [address] [place] [address] Dr. Soo Donnelly CBC AUTO DIFFon 05-17-2022 BASO # 0.0 103/ul Normal 0.0-0.1 [facility] Comment on above: Performed By: #### U LG, CRP #### [facility] [address] [place] [address] Dr. Soo Donnelly Basophils/100 WBC (Bld) 0.1 % Critically low 0.2-2.0 [facility] Comment on above: Performed By: #### U LG, CRP #### [facility] [address] [place] [address] Dr. Soo Donnelly EO # 0.0 103/ul Normal 0.0-0.7 [facility] Comment on above: Performed By: #### U LG, CRP #### [facility] [address] [place] [address] Dr. Soo Donnelly Eosinophils/100 WBC (Bld) 0.0 % Critically low 0.9-7.0 [facility] Comment on above: Performed By: #### U LG, CRP #### [facility] [address] [place] [address] Dr. Soo Donnelly Erythrocyte distribution width (RBC) [Ratio] 12.5 % Normal 11.0-15.0 [facility] Comment on above: Performed By: #### U LG, CRP #### [facility] [address] [place] [address] Dr. Soo Donnelly Hematocrit (Bld) [Volume fraction] 38.5 % Normal 36.0-48.0 [facility] Comment on above: Performed By: #### U LG, CRP #### [facility] [address] [address] [address] Soo Donnelly Hemoglobin (Bld) [Mass/Vol] 13.0 g/dL Normal 12.0-16.0 [facility] Comment on above: Performed By: #### U LG, CRP #### [facility] [address] [place] [address] Dr. Soo Donnelly IG # 0.16 10e3/ul Critically high 0.00-0.03 [facility] Comment on above: Performed By: #### U LG, CRP #### [facility] [address] [place] [address] Dr. Soo Donnelly IG % 0.7 % Critically high 0.0-0.5 [facility] Comment on above: Performed By: #### U LG, CRP #### [facility] [address] [place] [address] Dr. Soo Donnelly LYMPH # 3.0 103/ul Normal 1.2-3.8 [facility] Comment on above: Performed By: #### U LG, CRP #### [facility] [address] [place] [address] Dr. Soo Donnelly Lymphocytes/100 WBC (Bld) 12.2 % Critically low 20.5-60.0 [facility] Comment on above: Performed By: #### U LG, CRP #### [facility] [address] [place] [address] Dr. Soo Donnelly MANUAL DIFF REQ NO Normal [facility] Comment on above: Performed By: #### U LG, CRP #### [facility] [address] [place] [address] Dr. Soo Donnelly MCH (RBC) [Entitic mass] 32.4 pg Normal 26.7-34.0 [facility] Comment on above: Performed By: #### U LG, CRP #### [facility] [address] [place] [address] Dr. Soo Donnelly MCHC (RBC) [Mass/Vol] 33.8 g/dL Normal 29.9-35.2 [facility] Comment on above: Performed By: #### U LG, CRP #### [facility] [address] [address] [address] Soo Donnelly MCV (RBC) [Entitic vol] 96.0 fL Normal 81.0-99.0 [facility] Comment on above: Performed By: #### U LG, CRP #### [facility] [address] [address] [address] Soo Donnelly MONO # 1.3 103/ul Critically high 0.3-0.8 [facility] Comment on above: Performed By: #### U LG, CRP #### [facility] [address] [address] [address] Soo Donnelly Monocytes/100 WBC (Bld) 5.4 % Normal 1.7-12.0 [facility] Comment on above: Performed By: #### U LG, CRP #### [facility] [address] [place] [address] Dr. Soo Donnelly NEUT # 19.8 103/ul Critically high 1.4-6.5 [facility] Comment on above: Performed By: #### U LG, CRP #### [facility] [address] [address] [address] Soo Donnelly Neutrophils/100 WBC (Bld) 81.6 % Critically high 43.0-75.0 [facility] Comment on above: Performed By: #### U LG, CRP #### [facility] [address] [place] [address] Dr. Soo Donnelly Platelet mean volume (Bld) [Entitic vol] 10.5 fL Normal 9.5-13.5 [facility] Comment on above: Performed By: #### U LG, CRP #### [facility] [address] [place] [address] Dr. Soo Donnelly PLT 253 103/ul Normal 150-450 [facility] Comment on above: Performed By: #### U LG, CRP #### [facility] [address] [place] [address] Dr. Soo Donnelly RBC 4.01 106/ul Critically low 4.20-5.40 [facility] Comment on above: Performed By: #### U LG, CRP #### [facility] [address] [address] [address] Soo Donnelly WBC 24.3 103/ul Critically high 4.0-11.0 [facility] Comment on above: Performed By: #### U LG, CRP #### [facility] [address] [address] [address] Soo Donnelly BASO # 0.0 103/ul Normal 0.0-0.1 [facility] Comment on above: Performed By: #### U LG, CRP #### [facility] [address] [address] [address] Soo Donnelly Basophils/100 WBC (Bld) 0.1 % Critically low 0.2-2.0 [facility] Comment on above: Performed By: #### U LG, CRP #### [facility] [address] [address] [address] Soo Donnelly EO # 0.0 103/ul Normal 0.0-0.7 [facility] Comment on above: Performed By: #### U LG, CRP #### [facility] [address] [address] [address] Soo Donnelly Eosinophils/100 WBC (Bld) 0.0 % Critically low 0.9-7.0 [facility] Comment on above: Performed By: #### U LG, CRP #### [facility] [address] [address] [address] Soo Donnelly Erythrocyte distribution width (RBC) [Ratio] 12.3 % Normal 11.0-15.0 [facility] Comment on above: Performed By: #### U LG, CRP #### [facility] [address] [address] [address] Soo Donnelly Hematocrit (Bld) [Volume fraction] 41.2 % Normal 36.0-48.0 [facility] Comment on above: Performed By: #### U LG, CRP #### [facility] [address] [address] [address] Soo Donnelly Hemoglobin (Bld) [Mass/Vol] 13.5 g/dL Normal 12.0-16.0 [facility] Comment on above: Performed By: #### U LG, CRP #### [facility] [address] [place] [address] Dr. Soo Donnelly IG # 0.11 10e3/ul Critically high 0.00-0.03 [facility] Comment on above: Performed By: #### U LG, CRP #### [facility] [address] [address] [address] Soo Donnelly IG % 0.5 % Normal 0.0-0.5 [facility] Comment on above: Performed By: #### U LG, CRP #### [facility] [address] [place] [address] Dr. Soo Donnelly LYMPH # 1.6 103/ul Normal 1.2-3.8 [facility] Comment on above: Performed By: #### U LG, CRP #### [facility] [address] [place] [address] Dr. Soo Donnelly Lymphocytes/100 WBC (Bld) 7.8 % Critically low 20.5-60.0 [facility] Comment on above: Performed By: #### U LG, CRP #### [facility] [address] [place] [address] Dr. Soo Donnelly MANUAL DIFF REQ NO Normal [facility] Comment on above: Performed By: #### U LG, CRP #### [facility] [address] [address] [address] Soo Donnelly MCH (RBC) [Entitic mass] 31.8 pg Normal 26.7-34.0 [facility] Comment on above: Performed By: #### U LG, CRP #### [facility] [address] [address] [address] Soo Donnelly MCHC (RBC) [Mass/Vol] 32.8 g/dL Normal 29.9-35.2 [facility] Comment on above: Performed By: #### U LG, CRP #### [facility] [address] [place] [address] Dr. Soo Donnelly MCV (RBC) [Entitic vol] 96.9 fL Normal 81.0-99.0 [facility] Comment on above: Performed By: #### U LG, CRP #### [facility] [address] [place] [address] Dr. Soo Donnelly MONO # 0.4 103/ul Normal 0.3-0.8 [facility] Comment on above: Performed By: #### U LG, CRP #### [facility] [address] [place] [address] Dr. Soo Donnelly Monocytes/100 WBC (Bld) 2.0 % Normal 1.7-12.0 [facility] Comment on above: Performed By: #### U LG, CRP #### [facility] [address] [place] [address] Dr. Soo Donnelly NEUT # 18.1 103/ul Critically high 1.4-6.5 [facility] Comment on above: Performed By: #### U LG, CRP #### [facility] [address] [place] [address] Dr. Soo Donnelly Neutrophils/100 WBC (Bld) 89.6 % Critically high 43.0-75.0 [facility] Comment on above: Performed By: #### U LG, CRP #### [facility] [address] [place] [address] Dr. Soo Donnelly Platelet mean volume (Bld) [Entitic vol] 11.0 fL Normal 9.5-13.5 [facility] Comment on above: Performed By: #### U LG, CRP #### [facility] [address] [place] [address] Dr. Soo Donnelly PLT 223 103/ul Normal 150-450 [facility] Comment on above: Performed By: #### U LG, CRP #### [facility] [address] [place] [address] Dr. Soo Donnelly RBC 4.25 106/ul Normal 4.20-5.40 [facility] Comment on above: Performed By: #### U LG, CRP #### [facility] [address] [place] [address] Dr. Soo Donnelly WBC 20.2 103/ul Critically high 4.0-11.0 [facility] Comment on above: Performed By: #### U LG, CRP #### [facility] [address] [place] [address] Dr. Soo Donnelly CREATININEon 05-17-2022 Creatinine [Mass/Vol] 0.97 mg/dL Normal 0.55-1.02 [facility] Comment on above: Performed By: #### B UN, CREA #### [facility] [address] [address] [address] Soo Donnelly EGFR-AF KENYAN >60 Normal >=60 [facility] Comment on above: Performed By: #### B UN, CREA #### [facility] [address] [place] [address] Dr. Soo Donnelly EGFR-NON AF KENYAN >60 Normal >=60 [facility] Comment on above: Performed By: #### B UN, CREA #### [facility] [address] [place] [address] Dr. Soo Donnelly CTA CHEST WO W [...] ELENA SAUCEDA Date: 2022-05-17 16:40 Normal [facility] XR CHEST 2 Von 05-17-2022 XR CHEST [...] SAMI JONES Date: 2022-05-17 16:10 Normal [facility] CBC AUTO DIFFon 05-16-2022 BASO # 0.1 103/ul Normal 0.0-0.1 [facility] Comment on above: Performed By: #### B UN, CREA #### [facility] [address] [place] [address] Dr. Soo Donnelly Basophils/100 WBC (Bld) 0.5 % Normal 0.2-2.0 [facility] Comment on above: Performed By: #### B UN, CREA #### [facility] [address] [place] [address] Dr. Soo Donnelly EO # 0.1 103/ul Normal 0.0-0.7 [facility] Comment on above: Performed By: #### B UN, CREA #### [facility] [address] [place] [address] Dr. Soo Donnelly Eosinophils/100 WBC (Bld) 1.0 % Normal 0.9-7.0 [facility] Comment on above: Performed By: #### B JOANNA, CREA #### [facility] [address] [place] [address] Dr. Soo Donnelly Erythrocyte distribution width (RBC) [Ratio] 12.2 % Normal 11.0-15.0 [facility] Comment on above: Performed By: #### B JOANNA, CREA #### [facility] [address] [place] [address] Dr. Soo Donnelly Hematocrit (Bld) [Volume fraction] 41.2 % Normal 36.0-48.0 [facility] Comment on above: Performed By: #### B UN, CREA #### [facility] [address] [place] [address] Dr. Soo Donnelly Hemoglobin (Bld) [Mass/Vol] 13.9 g/dL Normal 12.0-16.0 [facility] Comment on above: Performed By: #### B UN, CREA #### [facility] [address] [place] [address] Dr. Soo Donnelly IG # 0.04 10e3/ul Critically high 0.00-0.03 [facility] Comment on above: Performed By: #### B UN, CREA #### [facility] [address] [place] [address] Dr. Soo Donnelly IG % 0.4 % Normal 0.0-0.5 [facility] Comment on above: Performed By: #### B UN, CREA #### [facility] [address] [place] [address] Dr. Soo Donnelly LYMPH # 3.5 103/ul Normal 1.2-3.8 [facility] Comment on above: Performed By: #### B UN, CREA #### [facility] [address] [place] [address] Dr. Soo Donnelly Lymphocytes/100 WBC (Bld) 35.3 % Normal 20.5-60.0 [facility] Comment on above: Performed By: #### B UN, CREA #### [facility] [address] [place] [address] Dr. Soo Donnelly MANUAL DIFF REQ NO Normal [facility] Comment on above: Performed By: #### B UN, CREA #### [facility] [address] [place] [address] Dr. Soo Donnelly MCH (RBC) [Entitic mass] 31.7 pg Normal 26.7-34.0 [facility] Comment on above: Performed By: #### B UN, CREA #### [facility] [address] [place] [address] Dr. Soo Donnelly MCHC (RBC) [Mass/Vol] 33.7 g/dL Normal 29.9-35.2 [facility] Comment on above: Performed By: #### B UN, CREA #### [facility] [address] [place] [address] Dr. Soo Donnelly MCV (RBC) [Entitic vol] 94.1 fL Normal 81.0-99.0 [facility] Comment on above: Performed By: #### B UN, CREA #### [facility] [address] [place] [address] Dr. Soo Donnelly MONO # 0.5 103/ul Normal 0.3-0.8 [facility] Comment on above: Performed By: #### B UN, CREA #### [facility] [address] [place] [address] Dr. Soo Donnelly Monocytes/100 WBC (Bld) 5.4 % Normal 1.7-12.0 [facility] Comment on above: Performed By: #### B UN, CREA #### [facility] [address] [place] [address] Dr. Soo Donnelly NEUT # 5.6 103/ul Normal 1.4-6.5 [facility] Comment on above: Performed By: #### B UN, CREA #### [facility] [address] [place] [address] Dr. Soo Donnelly Neutrophils/100 WBC (Bld) 57.4 % Normal 43.0-75.0 [facility] Comment on above: Performed By: #### B UN, CREA #### [facility] [address] [place] [address] Dr. Soo Donnelly Platelet mean volume (Bld) [Entitic vol] 10.3 fL Normal 9.5-13.5 [facility] Comment on above: Performed By: #### B UN, CREA #### [facility] [address] [place] [address] Dr. Soo Donnelly PLT 235 103/ul Normal 150-450 [facility] Comment on above: Performed By: #### B UN, CREA #### [facility] [address] [address] [address] Soo Donnelly RBC 4.38 106/ul Normal 4.20-5.40 [facility] Comment on above: Performed By: #### B UN, CREA #### [facility] [address] [address] [address] Soo Donnelly WBC 9.8 103/ul Normal 4.0-11.0 [facility] Comment on above: Performed By: #### B UN, CREA #### [facility] [address] [address] [address] Soo Donnelly PREG QUANT HCGon 05-16-2022 HCG QUANT <1 Normal [facility] Comment on above: Performed By: #### U LG, CRP #### [facility] [address] [address] [address] Soo Donnelly HCG RANGE SEE BELOW Normal [facility] Comment on above: Result Comment: 5-50 0-1 WEEK 40-300 1-2 WEEKS 100-1,000 2-3 WEEKS 500-6,000 3-4 WEEKS 5,000-200,000 1-2 MONTHS 10,000-100,000 2-3 MONTHS 3,000-50,000 2ND TRIMESTER 1,000-50,000 3RD TRIMESTER Performed By: #### U LG, CRP #### [facility] [address] [address] [address] Soo Donnelly Covid-19 PCR (CVDTBH)on 05-01 SARS-CoV-2 (COVID-19) RNA NOLA+probe Ql (Unsp spec) Not detected Normal NOT DETECTED [facility] Comment on above: Result Comment: This test is not yet approved or cleared by the [place] FDA. When there are no FDA-approved or cleared tests available, and other criteria are met, FDA can make tests available under an emergency access mechanism called an Emergency Use Authorization (EUA). The EUA for this test is supported by the [employer] of Health and Human Service's (HHS's) declaration [...] SARS-CoV-2. Performed By: #### C VDTBH #### [facility] [address] [place] [address] Dr. Soo Donnelly TYPE AND SCREENon 05-13-2022 TYPE AND SCREEN Negative Normal [facility] Comment on above: Performed By: #### B UN, CREA #### [facility] [address] [place] [address] Dr. Soo Donnelly PAP ACOG PANEL 2: 30 to 65on 05-07-2022 . . Normal [facility] Comment on above: Result Comment: Perf ormed at: WB Performed By: #### [id number] #### [facility] [address] [place] [address] Dr. Soo Donnelly Age Gdln ACOG Testing 30-65 Normal [facility] Comment on above: Performed By: #### [id number] #### [facility] [address] [place] [address] Dr. Soo Donnelly DIAGNOSIS: Comment Normal [facility] Comment on above: Result Comment: NEGA TIVE FOR INTRAEPITHELIAL LESION OR MALIGNANCY. Performed at: WB Performed By: #### [id number] #### [facility] [address] [place] [address] Dr. Soo Donnelly HPV Aptima Negative Normal Negative [facility] Comment on above: Result Comment: This nucleic acid amplification test detects fourteen high-risk HPV types (16,18,31,33,35,39,45,51,52,56,58,59,66,68) without differentiation. Performed at: =G Performed By: #### [id number] #### [facility] [address] [place] [address] Dr. Soo Donnelly Methodology: Comment Normal [facility] Comment on above: Result Comment: This liquid based ThinPrep(R) pap test was screened with the use of an image guided system. Performed at: WB Performed By: #### [id number] #### [facility] [address] [place] [address] Dr. Soo Donnelly Note: Comment Normal [facility] Comment on above: Result Comment: The Pap smear is a screening test designed to aid in the detection of premalignant and malignant conditions of the uterine cervix. It is not a diagnostic procedure and should not be used as the sole means of detecting cervical cancer. Both false-positive and false-negative reports do occur. . Performed at: WB Performed By: #### [id number] #### [facility] [address] [place] [address] Dr. Soo Donnelly Performed by: Comment Normal [facility] Comment on above: Result Comment: Angel Rod, Religious Leader (ASCP) Performed at: WB Performed By: #### [id number] #### [facility] [address] [place] [address] Dr. Soo Donnelly Specimen adequacy: Comment Normal [facility] Comment on above: Result Comment: Sati sfactory for evaluation. Endocervical and/or squamous metaplastic cells (endocervical component) are present. Performed at: WB Performed By: #### [id number] #### [facility] [address] [place] [address] Dr. Soo Donnelly ROSS by IFAon 02-21-2022 Antinuclear Antibodies, IFA Negative Normal [facility] Comment on above: Result Comment: Nega tive <1:80 Borderline 1:80 Positive >1:80 ICAP nomenclature: [id number] For more information about Hep-2 cell patterns use ANApatterns.org, the official website for the International Consensus on Antinuclear Antibody (ROSS) Patterns (ICAP). Performed By: #### U LG, CRP #### [facility] [address] [place] [address] Dr. Soo Donnelly ROSS DIRECTon 02-20-2022 ROSS Direct Negative Normal Negative [facility] Comment on above: Performed By: #### A NAD #### [facility] [address] [place] [address] Dr. Soo Donnelly ANTISTREPTOLYSIN O AB (ASO)o n 02-20-2022 Antistreptolysin O Ab 115.3 IU/mL Normal 0.0-200.0 [facility] Comment on above: Performed By: #### B UN, CREA #### [facility] [address] [place] [address] Dr. Soo Donnelly C3 and C4 COMPLEMENTon 02-20 Complement C3, Serum 137 mg/dL Normal 82-167 [facility] Comment on above: Performed By: #### U LG, CRP #### [facility] [address] [place] [address] Dr. Soo Donnelly Complement C4, Serum 23 mg/dL Normal 12-38 [facility] Comment on above: Performed By: #### U LG, CRP #### [facility] [address] [place] [address] Dr. Soo Donnelly SLE PROFILE Aon 02-20-2022 Anti-DNA (DS) Ab Qn <1 Normal 0-9 [facility] Comment on above: Result Comment: Nega tive <5 Equivocal 5 - 9 Positive >9 Performed By: #### S YARI #### [facility] [address] [place] [address] Dr. Soo Donnelly Antichromatin Antibodies <0.2 Normal 0.0-0.9 [facility] Comment on above: Performed By: #### S YARI #### [facility] [address] [place] [address] Dr. Soo Donnelly RA Latex Turbid. <10.0 Normal <14.0 [facility] Comment on above: Performed By: #### S YARI #### [facility] [address] [place] [address] Dr. Soo Donnelly COMMUNITY DEVELOPMENT OFFICER Antibodies <0.2 Normal 0.0-0.9 [facility] Comment on above: Performed By: #### S YARI #### [facility] [address] [place] [address] Dr. Soo Donnelly Sjogren'neel Anti-SS-A <0.2 Normal 0.0-0.9 [facility] Comment on above: Performed By: #### S YARI #### [facility] [address] [place] [address] Dr. Soo Donnelly Sjogren'neel Anti-SS-B <0.2 Normal 0.0-0.9 [facility] Comment on above: Performed By: #### S YARI #### [facility] [address] [place] [address] Dr. Soo Donnelly Spann Antibodies <0.2 Normal 0.0-0.9 [facility] Comment on above: Performed By: #### S YARI #### [facility] [address] [place] [address] Dr. Soo Donnelly CRPon 02-19-2022 CRP [Mass/Vol] mg/L Normal <=1.0 [facility] Comment on above: Performed By: #### U LG, CRP #### [facility] [address] [place] [address] Dr. Soo Donnelly URIC ACID SERUMon 02-19-2022 Urate [Mass/Vol] 4.7 mg/dL Normal 2.5-6.2 [facility] Comment on above: Performed By: #### U LG, CRP #### [facility] [address] [place] [address] Dr. Soo Donnelly XR CSPINE MIN 4 [...] ABIGAIL SHEEHAN Date: 2022-02-19 16:33 Normal [facility] XR HAND DEAN MIN 3Von 022 XR [...] ABIGAIL SHEEHAN Date: 2022-02-19 16:28 Normal [facility] ASYMPTOMATIC COVID-19 ANTIGE Non 12-04-2021 EUA Statement SEE BELOW Normal [facility] Comment on above: Result Comment: This [...] sooner. Performed By: #### C VDAGA #### [facility] [address] [place] [address] Dr. Soo Donnelly SARS-CoV-2 (COVID-19) RNA NOLA+probe Ql (Unsp spec) Negative Normal NEGATIVE [facility] Comment on above: Result Comment: Nega tive results are presumptive. They do not preclude infection and should not be used as the sole basis for treatment decisions. Additional confirmatory testing by a molecular method should be considered. Performed By: #### C VDAGA #### [facility] [address] [place] [address] [id number] [address] Soo Donnelly Covid-19 PCR (CVDTB)on SARS-CoV-2 (COVID-19) RNA NOLA+probe Ql (Unsp spec) Not detected Normal NOT DETECTED [facility] Comment on above: Result Comment: This test is not yet approved or cleared by the [place] FDA. When there are no FDA-approved or cleared tests available, and other criteria are met, FDA can make tests available under an emergency access mechanism called an Emergency Use Authorization (EUA). The EUA for this test is supported by the [place] of Health and Human Service's (HHS's) declaration [...] Performed By: #### U LG, CRP #### [facility] [address] [place], [place] [id number] Dr. Soo Donnelly Vital Signs Date Time Vital Sign Value Performing Clinician Facility 11-01-2022 15:19-0500 Blood Pressure Location Nicola CHANEL [facility] 11-01-2022 15:19-0500 Diastolic blood pressure 80 mm[Hg] Nicola BUCHANAN [facility] 11-01-2022 15:19-0500 Heart rate 72 /min Nicola CANDELARIOL [facility] 11-01-2022 15:19-0500 Respiratory rate 16 /min Nicola BUCHANAN [facility] 11-01-2022 15:19-0500 Systolic blood pressure 118 mm[Hg] Nicola BUCHANAN [facility] [place] 10-01-2022 16:30-0400 Body height 170.18 cm Clarice Scally Other [employer] Other 10-01-2022 16:30-0400 Body mass index (BMI) [Ratio] 32.84 kg/m2 Clarice Scally Other [employer] [facility] Other 10-01-2022 16:30-0400 Body weight 95.12 kg Clarice Scally Other [employer] Other 10-01-2022 16:30-0400 Diastolic blood pressure 82 mm[Hg] Clarice Scally Other [employer] Other 10-01-2022 16:30-0400 Respiratory rate 18 /min Clarice Scally Other [employer] Other 10-01-2022 16:30-0400 SaO2% (BldA) [Mass fraction] 97 % Clarice Scally Other [employer] Other 10-01-2022 16:30-0400 Systolic blood pressure 116 mm[Hg] Clarice Scally Other [employer] Other 08-28-2022 14:30-0400 Body height 170.18 cm Nahid Mccoy Other [employer] [facility] Other 08-28-2022 14:30-0400 Body mass index (BMI) [Ratio] 34.55 kg/m2 Nahid Mccoy Other [employer] [facility] Other 08-28-2022 14:30-0400 Body weight 100.06 kg Nahid Mccoy Other [employer] Other 08-28-2022 14:30-0400 Diastolic blood pressure 82 mm[Hg] Nahid Mccoy Other [employer] Other 08-28-2022 14:30-0400 Respiratory rate 18 /min Nahid Mccoy Other [employer] Other 08-28-2022 14:30-0400 SaO2% (BldA) [Mass fraction] 97 % Nahid Mccoy Other [employer] Other 08-28-2022 14:30-0400 Systolic blood pressure 121 mm[Hg] Nahid Mccoy Other [employer] Other Encounters Encounter Date Encounter Type Care Provider Facility Start: 09-27-2024 End: 09-27-2024 ambulatory DELGADO LIDIA Not Available Start: 09-27-2024 End: 09-27-2024 Bamboo flowsheet Delgado Lidia DO Work Phone: [facility] Start: 09-27-2024 End: 09-27-2024 Bamboo flowsheet Delgado Lidia DO Work Phone: [facility] Start: 09-20-2024 End: 09-20-2024 ambulatory Hebert Jara MD Facility:[facility] Start: 09-09-2024 End: 09-09-2024 ambulatory Carol Webb [...] PT Start: 08-30-2024 End: 08-30-2024 [facility] [address] Work Phone: Start: 08-30-2024 End: 08-30-2024 ambulatory NON STAFF [facility] Work Phone: Start: 04-05-2024 End: 04-05-2024 ambulatory DELGADO MURILLO Not Available Start: 03-15-2024 End: 03-15-2024 Emergency department patient visit Nicola Neff Facility:[facility] Start: 10-22-2023 End: 10-22-2023 ambulatory JESSICA SNACHEZ Not Available Start: 08-15-2023 End: 08-15-2023 ambulatory NON STAFF [facility] Work Phone: Start: 08-15-2023 End: 08-15-2023 [facility] [address] Work Phone: Start: 12-05-[address] SAMI MARINELLI Facility :[facility] Start: 11-09-2022 End: 11-10-[address] DOCTOR STEIN Facility:[facility] Start: 11-01-2022 End: 11-02-2022 ambulatory Nicola BUCHANAN Facility: [place] Start: 11-01-2022 End: 11-01-2022 Patient encounter procedure Nicola BUCHANAN [facility] Start: 10-29-2022 End: 10-29-2022 ambulatory Clarice Hull Other [employer] Other Start: 10-29-2022 Telephone encounter [facility] Start: 10-14-2022 End: 10-14-2022 ambulatory Clarice Hull Other [employer] Other Start: 10-14-2022 Telephone encounter [facility] Start: 10-04-2022 ambulatory Nicola CANDELARIOHamida Facility:[facility] Start: 10-01-2022 (FCCCWMNF/U) Weight Management f/u Clarice Hull [facility] Start: 10-01-2022 End: 10-02-[address] LUZ ELENA SAUCEDA [facility] Other Start: 09-19-2022 End: 09-19-2022 ambulatory Nahid Mccoy Other [employer] Other Start: 09-19-2022 Telephone encounter Nahid [facility] Start: 09-18-2022 End: 09-18-[address] LUZ ELENA SAUCEDA Facility:[facility] Start: 09-12-2022 End: 09-13-[address] ABIGAIL SHEEHAN Facility:[facility] Start: 08-28-2022 End: 08-28-2022 ambulatory Nahid Mccoy Other [employer] Other Start: 08-28-2022 Nutrition therapy Nahid Mccoy [facility] Start: 07-22-2022 Encounter for genera l adult medical examination without abnormal findings DR SAMI MARINELLI [facility] Start: 07-19-2022 End: 07-20-[address] SAMI [...] for preprocedural laboratory examination DR DELGADO MURILLO [facility] Start: 05-13-2022 End: 05-14-[address] DELGADO MURILLO Facility:[facility] Start: 05-13-2022 End: 05-14-2022 Encounter for preprocedural laboratory examination DR DELGADO MURILLO Facility:[facility] Start: 05-11-2022 Encounter for preprocedural cardiovascular examination DR DELGADO MURILLO [facility] Start: 05-08-2022 End: 05-09-[address] SAMI [...] above: ABDOMEN X3 REPAIR FOR TMJ Nicola BUCAHNAN Plan of Treatment Date Care Activity Detail Author Start: 05-28-2031 Screening for malign ant neoplasm of colon [facility] Start: 10-23-2028 Screening for malign ant neoplasm of cervix [facility] Start: 11-27-2024 Screening for malign ant neoplasm of breast Mammogram [facility] Start: 11-22-2024 End: 11-22-2024 Patient encounter procedure 11/22/2024 1:00 PM EST Office Visit [facility] [address] [place] [address] Delgado Murillo, DO [address] [place] [address] [facility] Start: 09-27-2024 End: 09-27-2024 Patient encounter procedure 09/27/2024 3:10 PM EDT Office Visit [facility] [address] [place] [address] Delgado Murillo, DO [address] [place] [address] Arrived [facility] Comment on above: Arrived Start: 09-09-2024 End: 09-09-2024 ambulatory 09/09/2024 4:00 PM EDT Evaluation [facility] [address] [place] [id number] Carol Webb, PT [address] [place] [address] Arrived [facility] Comment on above: Arrived Start: 08-01-2024 Influenza vaccination Influenza Vacc ine (#1) [facility] Start: 1975 Screening for malign ant neoplasm of colon [facility] Immunizations Immunization Date Immunization Notes Care Provider Fa cility NEGATED: Highlighted row has not occurred!11-01-2022 influenza virus vaccine, unspecified formulation Nicola BUCHANAN [facility] [place] Payers Date Payer Category Payer Self-pay [id number] 2023 Private Health Insurance [employer] [id number] 2023 Unknown [id number]. 1.13.693.2. [id number] 1976 Unknown [id number] 2.16.840.1.485610.3.579.2. 727 1976 Unknown [id number] 2.16.840.1.663214.3.579.2. 593 1976 Unknown [id number] 2.16.840.1.302504.3.579.2. 593 1976 Unknown [id number] 2.16.840.1.309995.3.579.2. 593 1976 Unknown [id number] 2.16.840.1.496335.3.579.2. 593 1976 Unknown [id number] 2.16.840.1.376878.3.579.2. 593 1976 Unknown [id number] 2.16.840.1.698781.3.579.2. 593 1976 Unknown [id number] 2.16.840.1.228194.3.579.2. 593 1976 Unknown [id number] 2.16.840.1.259252.3.579.2. 593 1976 Unknown [id number] 2.16.840.1.987834.3.579.2. 593 1976 Unknown [id number] 2.16.840.1.977578.3.579.2. 593 1976 Unknown [id number] 2.16.840.1.927811.3.579.2. 593 1976 Unknown [id number] 2.16.840.1.599084.3.579.2. 593 1976 Unknown [id number] 2.16.840.1.452251.3.579.2. 593 1976 Unknown [id number] 2.16.840.1.673551.3.579.2. 593 1976 Unknown [id number] 2.16.840.1.589785.3.579.2. 718 1976 Unknown [id number] 2.16.840.1.395899.3.579.2. 196 1976 Unknown [id number] 2.16.840.1.972442.3.579.2. 1259 1976 Unknown [id number] 2.16.840.1.034311.3.579.2. 1258 1976 Unknown [id number] 2.16.840.1.202395.3.579.2. 9 1976 Unknown [id number] 2.16.840.1.109259.3.579.2. 1259 1959 Self-pay [id number] 1959 Unknown [id number] 2.16.840.1.054516.19 Unknown [id number] 2.16.840.1.115242.3.579.2. 531 Social History Date Type Detail Facility Unknown if ever smoked [employer] Other Start: 06-25-2023 End: 10-20-2023 Sex Assigned At [facility] Start: 11-01-2022 Tobacco smoking status Ex-smoker (fi nding) [facility] [place] Tobacco smoking status Former sm okeless tobacco user, quit more than 30 days ago [facility] [place] Start: 1975 Sex Assigned At Female F [facility] Start: 06-25-2023 Tobacco smoking stat [facility] Smokes tobacco daily [facility] History [...] Facility 11-01-2022 Functional Status N/A General Delgado [facility] Clinical Notes 05-16-2022 to 09-09-2024 Carol [...] No resulting surgeries. 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 Also notes poor balance with no diagnosed [...] sign below. Date: documented in this encounter [facility] 03-15-2024 Note Education Materials Cardiovascular Hypertension, Adult [...] Keep all follow-up visits. Medicines ? Take ndef-jcb-bxxowjh and prescription medicines only as told by [...] work harder to (more content not included)... [facility] 11-25-2022 Note Chief Complaint consultation [...] - Denies A (more content not included)... [facility] Comment on above: Result [...] was counseling done by myself, Ann ANGLIN. [employer] Other 09-28-2022 Evaluation note* Encounter Date Diagnosis Assessment Notes Treatment Notes Treatment Clinical Notes Aug, Abnormal weight gain (ICD-10 - R63.5) Aug, Prediabetes (ICD-10 - R73.03) Aug, Mixed hyperlipidemia (ICD-10 - E78.2) Aug, Hypertension (ICD-10 - I10) Aug, Obstructive sleep apnea (ICD-10 - G47.33) Aug, GERD (gastroesophageal reflux disease) (ICD-10 - K21.9) Aug, Metabolic syndrome X (ICD-10 - E88.81) [employer] Other 06-16-2022 NoteDISCHARGE SUMMARY DISCHARGE DATE: 05/18/2022 [...] pain free and no longer on narcotics. [facility] Signed and Approved by: DR DELGADO MURILLO . 05/20/2022 07:51:00[id number] NoteThe [place], [place] NAME: HORACIO PUGH DATE OF : MEDICAL REC#: [id number] COOPER APPRENTICE: [id number] [facility] ADMIT DATE: 05/16/2022 11:05:00 FLAGGER DATE: 05/17/2022 21:20 DICTATING PHYSICIAN: DELGADO MURILLO DICTATION DATE: 05/16/2022 15:02 OP Note OPERATION DATE: 05/16/2022 PROCEDURE: Supracervical hysterectomy with left salpingo-oophorectomy with right salpingectomy and right ovarian cystotomy of approximately 3 cm cyst. SURGEON: Delgado Murillo D.O. QUALITY WORKER: SHUKRI Bailon URINE OUTPUT: Yellow and clear. [...] Approved by: DR DELGADO MURILLO . 05/23/2022 10:30:00[facility] No data available for this section [facility] [place] Evaluation noteNo InformationNort Traffio Other Evaluation noteNo assessment information available [facility] Work Phone: Evaluation note* Diagnosis Neck [...] History TMJ surgery Hospitalization History see above [employer] Other History general Narrative - Reported* Type [...] see above Hospitalization History ER-abd . pain [facility] 09/18/22 [employer] Other Hospital Discharge instructions No data available [...] for Visit Chief Complaint WELLNESS Chief Complaint [facility] labs Additional Source Comments REASON FOR VISIT (unrecogniz ed section and content) Specialty Diagnoses / Procedures Referred By Contac t Referred To Contact Physical Therapy Diagnoses Other spondylosis, lumbar region Procedures [place] PHYS THERAPY EVALUATION Edwige Magaña MD [facility] [place] [address] Carol Webb, PT [address] [place] [address] Referral ID Status Reason Start Date Expiration Date V isits Requested Visits Authorized [id number] Authorized 09/02/2024 03/01/2025 40 40 Patient Care team informatio n (unrecognized section and content) Team Status: Active Member Role Status Dates NON STAFF Primary Care Provider Active Team Status: Inactive Member Role Status Dates NON STAFF Primary Care Provider Active Dedrick Fuller DO [facility] Attending Provider Active Team Status: Inactive Member Role Status Dates NON STAFF Primary Care Provider Active Start: August 30, 2024 End: August 30, 2024 DO PALAK Young Attending Provider Active Start: August 30, 2024 End: August 30, 2024 Legal Arbitrator Relationship Specialty Start Date End Date Sami Marinelli MD [address] [facility] [place] [address] PCP - General Family Medicine 06/26/23 Legal Arbitrator Relationship Specialty Start Date End Date Sami Marinelli MD [address] [place] [address] PCP - General Family Medicine 06/26/23 INFORMATION SOURCE (unrecogn ized section and content) DATE CREATED AUTHOR 11/26/2022 [facility] DATE CREATED AUTHOR AUTHOR'S ORGANIZ ATION 12/03/2022 [facility] DATE CREATED AUTHOR AUTHOR'S ORGANIZ ATION 03/21/2024 [facility] DATE CREATED AUTHOR AUTHOR'S ORGANIZ ATION 08/31/2024 [facility] DATE CREATED AUTHOR AUTHOR'S ORGANIZ ATION 09/26/2024 [facility] DATE CREATED AUTHOR AUTHOR'S ORGANIZ ATION 09/28/2024 [facility] d[facility] Specialists EPIC Goals (unrecognized section and [...] BE BASED ON THE PRIMARY CLINICAL RECORDS. [email or web address] provides no warranty or guarantee of the accuracy or completeness of information in this document.
[2024-10-07 08:07] LABS: Basophils Percent Auto 0.5 % (0.2-2.0); Eosinophils Absolute Auto 0.3 10^3/uL (0.0-0.7); Eosinophils Percent Auto 3.3 % (0.9-7.0); Hematocrit 36.4 % (36.0-48.0); Hemoglobin 12.1 g/dL (12.0-16.0); Immature Granulocytes Abs Auto 0.03 10^3/uL (0.00-0.03); Immature Granulocytes Pct Auto 0.3 % (0.0-0.5); Lymphocytes Absolute Auto 3.2 10^3/uL (1.2-3.8); Lymphocytes Percent Auto 36.9 % (20.5-60.0); Mean Corpuscular HGB Conc 33.2 g/dL (29.9-35.2); Mean Corpuscular Hemoglobin 30.6 pg (26.7-34.0); Mean Corpuscular Volume 91.9 fL (81.0-99.0); Mean Platelet Volume 10.5 fL (9.5-13.5); Monocytes Absolute Auto 0.5 10^3/uL (0.3-0.8); Monocytes Percent Auto 6.2 % (1.7-12.0); Neutrophils Absolute Auto 4.6 10^3/uL (1.4-6.5); Neutrophils Percent Auto 52.8 % (43.0-75.0); Platelet Count 270 10^3/uL (150-450); Red Blood Count 3.96 10^6/uL (4.20-5.40); Red Cell Distribution Width 12.4 % (11.0-15.0); White Blood Count 8.7 10^3/uL (4.0-11.0)
[2024-10-07 08:38] LABS: Alanine Aminotransferase 89 U/L (14-59); Albumin Globulin Ratio 1.1; Albumin Level 3.3 g/dL (3.4-5.0); Alkaline Phosphatase 79 U/L (46-116); Anion Gap 11.8; Aspartate Amino Transferase 44 U/L (15-37); Calcium 8.5 mg/dL (8.5-10.1); Carbon Dioxide 28.1 mmol/L (21.0-32.0); Chloride 106 mmol/L (98-107); Estimated GFR (African America >60 (>=60 mL/min/1.73m^2); Estimated GFR (Non-African Ame >60 (>=60 mL/min/1.73m^2); Free T3 3.36 pg/mL (2.18-3.98); Globulin 2.9 g/dL; Glucose 94 mg/dL (74-106); Potassium 3.9 mmol/L (3.5-5.1); Sodium 142 mmol/L (136-145); Thyroid Stimulating Hormone 2.291 uIU/mL (0.358-3.740); Total Protein 6.2 g/dL (6.4-8.2)
[2024-10-07 09:00] LABS: Estimated Average Glucose 128 mg/dL; Glycohemoglobin A1C 6.1 % (4.5-6.2)
[2024-10-08 08:13] LABS: Insulin 16.1 uIU/mL (2.6-24.9)
[2024-10-08 09:13] LABS: FSH 98.5 mIU/mL (.); Testosterone <3 ng/dL (4-50)
== END 2024-10-07 07:24 | disposition home or self-care (01) ==
LOC: LAB 07:25
PROVIDERS: PCP Family Medicine; Visit Provider Family Medicine
DX: R53.83 Other fatigue (principal); I10 Essential (primary) hypertension; N93.8 Other specified abnormal uterine and vaginal bleeding; R73.03 Prediabetes; R73.09 Other abnormal glucose; Z12.12 Encounter for screening for malignant neoplasm of rectum; E03.9 Hypothyroidism, unspecified
CPT/HCPCS: 36415; 80053; 83001; 83036; 83525; 84403; 84436; 84443; 84481; 85025

== ENCOUNTER 2024-10-09 12:21 | Outpatient (REF) | payer OTHER, SELFPAY ==
--- OUTSIDE RECORDS SUMMARY | 2024-10-09 12:25 | XMS_ITS | CCD ---
Author Organization [facility] CliniSymd Care Team Providers Care Blood Bank Credit Clerk Name Role Phone Nahid Mccoy Unavailable Clarice Hull Unavailable Sami Marinelli Primary Care Physician [phone] Nicola BUCHANAN Attending Unavailable ISMAEL MENJIVAR Referring [...] Rolle Consulting Unavailable SIENNA JI Consulting Unavailable READER, SAMI Consulting Unavailable LUL, DR GALLARDO Primary Care [...] NON STAFF Primary Care Provider [facility]ails[facility]ome [facility] Attending Provider [facility] Un[facility] NON STAFF Primary Care Unavailable Sami Marinelli MD Primary Care Provider [phone] JESSICA SANCHEZ Attending Unavailable DELGADO MURILLO Attending Unavailable CAROL WEBB Attending Unavailable EDWIGE MAGAÑA Referring Unavailable DELGADO MURILLO Attending Unavailable Marek BURK, Hebert Rock Attending Unavailable Marek BURK, Hebert Rock Attending Unavailable Allergies Allergy Classification Reported Allergen(s) Allergy Type Date of Onset Reaction(s) Facility (7 sources) NITROFURANTOIN, MACROCRYSTALS / Nitrofurantoin, Monohydrate; 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: [nitrofurantoin] Drug Allergy Neck swelling (finding) [facility] (1 source) Albuterol Drug Allergy [facility] Comment on above: NEED TO CUT DOWN ADR ENALIN TO PREVENT SEIZURES (2 sources) Bee/Wasp/Ant venom; 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: [Bee Stings] Allergy to substance Nausea, Swelling [facility] (1 source) PECANS 1 Food allergy [facility] Comment on above: AIRWAY CONSTRICTION (5 sources) Albuterol; 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: [albuterol] Drug Allergy 06-26-[address] [facility] (1 source) Egg; 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: [Eggs] Food allergy (disorder) [facility] (4 sources) Nitrofurantoin; 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: [Macrobid] Drug Allergy 05-02-[address] [facility] (1 source) PECANS; 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: [PECANS] Food allergy (disorder) [facility] (2 sources) bee venom Drug allergy (disorder) 06-09-20 15 [facility] (2 sources) egg extract Drug Allergy 06-09-20 15 [facility] (2 sources) pecan pollen extract Drug Allergy [facility] (2 sources) tree nut, unspecified Drug allergy (disorder) 06-09-20 15 [facility] (1 source) Nitrofurantoin Drug Allergy 10-01-20 [facility] (3 sources) Honey bee venom Allergy to substance 04-05-20 24 [facility] (3 sources) Nitrofurantoin Drug Allergy 05-01-20 18 Swelling [facility] (3 sources) Nitrofurantoin Drug Allergy 04-05-20 24 [facility] (3 sources) Egg-Derived Products Drug Allergy 04-05-20 24 [facility] (3 sources) Other Propensity to adverse reactions 05-13-20 05 [facility] Medications Current Medications Medication Drug Class(es) Dates [...] oral capsule (3 sources) Tricyclic Antidepressant Start: 023 take 1 capsule by mouth at bedtime doxepin (SINEquan) 10 MG capsule Take 10 mg by mouth at bedtime. 06/09/2023 Active fluconazole 150 mg oral tablet (3 sources) Azole Antifungal Start: 024 take 1 tablet by mouth once daily fluconazole (Diflucan) 150 MG tablet Indications: Pelvic pain in female Take 1 tablet (150 mg) by mouth Daily Repeat in 7 days if symptoms persist. 2 tablet 04/05/2024 Active lisinopril 20 mg oral tablet (7 sources) Angiotensin Converting Enzyme Inhibitor Start: 022 take 1 tablet by mouth once daily [...] Active Start: 10-30-2022 take 1 tablet by [facility] once daily meloxicam 15 mg Tab 15 [...] 10/30/22 Status: Ordered take [address] 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 DRUG THERAPY] Onset: 2 Episodic Other [...] MDRD (S/P/Bld) [Vol rate/Area] mL/min/{1.73_m2} Normal [facility] Comment on above: Performed By: #### L IPID, BMP #### [facility] [address] [place] [address] [place] Calcium [Mass/volume] in Ser um or PlasmaOrdered By: Dedrick Fuller on 08-30-2024 Calcium [Mass/Vol] 9.9 mg/dL Normal 8.6-10.3 [facility] Comment on above: Performed By: #### L IPID, BMP #### [facility] [address] [place] [id number] [place] Carbon dioxide, total [Moles /volume] in Serum or PlasmaOrdered By: Dedrick Fuller on 08-30-2024 CO2 [Moles/Vol] 26.6 mmol/L Normal 21.0-31.0 [facility] Comment on above: Performed By: #### L IPID, BMP #### [facility] [address] [place] [id number] [place] Chloride [Moles/volume] in S altagracia or PlasmaOrdered By: Dedrick Fuller on 08-30-2024 Chloride [Moles/Vol] 104 mmol/L Normal 98-107 [facility] Comment on above: Performed By: #### L IPID, BMP #### [facility] [address] [place] [address] [place] Cholesterol [Mass/volume] in Serum or PlasmaOrdered By: Dedrick Fuller on 08-30-2024 Cholesterol [Mass/Vol] 218 mg/dL High 140-200 [facility] Comment on above: Chol less than 200 m g/dl low riskChol 201-239 mg/dl borderline riskChol 240 mg/dl and greater high risk Result Comment: Chol less than 200 mg/dl low risk Chol 201-239 mg/dl borderline risk Chol 240 mg/dl and greater high risk Performed By: #### L IPID, BMP #### [facility] [address] Cholesterol in LDL Calc [Mas s/Vol]Ordered By: Dedrick Fuller on 08-30-2024 Cholesterol in LDL [Mass/Vol] 134 mg/dL High 0-100 [facility] Comment on above: LDL ATP III CLASSIFI CATIONLDL less than 100 mg/dL OptimalLDL 100-129 mg/dL Near or above optimalLDL 130-159 mg/dL Borderline highLDL 160-189 mg/dL HighLDL greater than 189 mg/dL Very high Cholesterol in VLDL Calc [Ma ss/Vol]Ordered By: Dedrick Fuller on 08-30-2024 Cholesterol in VLDL [Mass/Vol] 46 mg/dL [facility] Creatinine [Mass/volume] in Serum or PlasmaOrdered By: Dedrick Fuller on 08-30-2024 Creatinine [Mass/Vol] 0.75 mg/dL Normal 0.60-1.20 [facility] Comment on above: Performed By: #### L IPID, BMP #### [facility] [address] [place] [address] [place] Glucose [Mass/volume] in Ser um or PlasmaOrdered By: Dedrick Fuller on 08-30-2024 Glucose [Mass/Vol] 95 mg/dL Normal 70-100 [facility] Comment on above: ADA recommended refe rence rangeRandom Glucose Reference Range is dependent on time and content of last meal. Glucose of more than 200 mg/dL in a nonstressed, ambulatory subject supports the diagnosis of Diabetes Mellitus. Result Comment: [place] Glucose Reference Range is dependent on time and content of last meal. Glucose of more than 200 mg/dL in a nonstressed, ambulatory subject supports the diagnosis of Diabetes Mellitus. ADA recommended reference range Performed By: #### L IPID, BMP #### [address] Lipid Panelon 08-30-2024 LDL Cholesterol,Calculated 134 mg/dL High 0-100 [facility] Comment on above: Result Comment: LDL ATP III CLASSIFICATION LDL less than 100 mg/dL Optimal LDL 100-129 mg/dL Near or above optimal LDL 130-159 mg/dL Borderline high LDL 160-189 mg/dL High LDL greater than 189 mg/dL Very high Performed By: #### L IPID, BMP #### [address] Triglyceride w/Reflex 231 mg/dL High 0-149 [facility] Comment on above: Result Comment: TRIG ATP III CLASSIFICATION TRIG less than 150 mg/dL Normal TRIG 150-199 mg/dL Borderline high TRIG 200-500 mg/dL High TRIG greater than 500 mg/dL Very high Standard traceable to the Center for Disease Conrtrol and Prevention (CDC) test method. Performed By: #### L IPID, BMP #### [address] VLDL CHOLESTEROL 46 mg/dL Normal [facility] Comment on above: Performed By: #### L IPID, BMP #### [address] No Panel InformationOrdered By: Dedrick Fuller on 08-30-2024 Estimated GFR (CKD-EPI) > 60.0 mL/Min [facility] Creatinine Clearance (Chem N/A [facility] Potassium [Moles/volume] in Serum or PlasmaOrdered By: Dedrick Fuller on 08-30-2024 Potassium [Moles/Vol] 4.1 mmol/L Normal 3.5-5.1 [facility] Comment on above: Performed By: #### L IPID, BMP #### [facility] [address] [place] [address] Serum or plasma anion gap de terminationOrdered By: Dedrick Fuller on 08-30-2024 Anion gap [Moles/Vol] 13.5 mmol/L Normal 6.0-15.0 [facility] Comment on above: Performed By: #### L IPID, BMP #### [facility] [address] [place] [address] Serum or plasma high density lipoprotein (HDL) cholesterol measurementOrdered By: Dedrick Fuller on 08-30-2024 Cholesterol in HDL [Mass/Vol] 38 mg/dL Normal 23-92 [facility] Comment on above: HDL CHOL ATP-III CLA SSIFICATION Cardiovascular RiskHDL > or equal to 60 mg/dL LOWHDL < 40 mg/dL HIGH Result Comment: HDL CHOL ATP-III CLASSIFICATION Cardiovascular Risk HDL > or equal to 60 mg/dL LOW HDL < 40 mg/dL HIGH Performed By: #### L IPID, BMP #### [facility] [address] [place] [address] Serum or plasma total choles terol/high density lipoprotein (HDL) cholesterol mass ratOrdered By: Dedrick Fuller on 08-30-2024 Cholesterol.total/Mirta sterol in HDL [Mass ratio] 5.7 {ratio} Normal <5.0 [facility] Comment on above: Result Comment: PERF ORMED BY: [place] [address] PATHOLOGIST BLISTER RUST ERADICATOR IRMA MARCELO M.D. Performed By: #### L IPID, BMP #### [facility] [address] [place] [address] [place] Sodium [Moles/volume] in Ser um or PlasmaOrdered By: Dedrick Fuller on 08-30-2024 Sodium [Moles/Vol] 140 mmol/L Normal 136-145 [facility] Comment on above: Performed By: #### L IPID, BMP #### [facility] [address] [place] [address] Triglyceride [Mass/volume] i n Serum or PlasmaOrdered By: Dedrick Fuller on 08-30-2024 Triglyceride [Mass/Vol] 231 mg/dL High 0-149 [facility] Comment on above: TRIG ATP III CLASSIF ICATIONTRIG less than 150 mg/dL NormalTRIG 150-199 mg/dL Borderline highTRIG 200-500 mg/dL High TRIG greater than 500 mg/dL Very highStandard traceable to the Center for Disease Conrtrol and Prevention (CDC) test method. Urea nitrogen [Mass/volume] in Serum or PlasmaOrdered By: Dedrick Fuller on 08-30-2024 Urea nitrogen [Mass/Vol] 18 mg/dL Normal 7-25 [facility] Comment on above: Performed By: #### L IPID, BMP #### [address] Coding Summaryon 03-19-2024 Coding Summary HTMLBase 64 HukvwwasMGm6mCd+PGhlY WQ+ZO3JYUZdG46ftASjkD 6jL7FLKAwGSpckYDGYURy GZdHturVfHO3rpSZcESJu IC8+GY3oJMUhPbmbiFNrb 6P7dPD5F32fjd1cGUegbW Y5OIStPfSexbfjy2ayfNm 6IDcuNmluOyBt ULIfkD02ASB1vE77Ck33r FUlaUTqq9dvbXh3IoKfJQ ZhVAT9kTxjHFbti4TcIDG cA18nvYVau0W5 JZFmaFbjgXQaAcWvjZF6e N5rKKbertrky0dljzxvIg c1fj33nJHip3B5nTB3G8S rssE2KUIleCYk ZjcsiSPGwY1engxmd9ryd hrhNoAvNGGwPNh7NTm5OQ CchOesOhMtIT18HEH2QSB pxrRoH7LvKZKc mHcyEuI2o5E0Ms7VN1LOA jjbL6MBXZSQGHyltFP+PC 09hu19R9HaGurvRzj4OGO mBEW8nLF8oY0h CXCvWYxcm7C1kBH6I3Gbq zLzsn1om5ijILGlGOccU7 5wzYUks7I3GCAqzJD4VAI gtEhoWyJcjD23 Oyc+AZUmwOiga2JrGivli 8iiq3irpXj1HstfIYWdvq SsvYtyMCN5i3YpAu2dUSB bmTZ3mFN8hZ1l RbIeJxC3DNvkF834TmGvm GKyZudhO03qD6PqrPM+PH PhNgc8UIUsjWuuNP1tZ7Y hZGRpbmctbGVm fLnePG1cAWHjhpywUELlo H7pOMYbH7w2MqUkKgJ6SF dvF8WsHBDhbirgQj50eJ7 dXkIfZkY4BZjn V6AdewN1MIMzhRWcYDicQ ND0C86dd2Q3NVLmTBGmHV Y6mCE3hU0zkEqjaqxfnWV mdDsgdmVydGlj RViuBFwaF081TUJqvAqvR kNvZGluZyBEYXRlOiAgMD QvMTkvMjAyNDwvdGQ+PHR aAQB3sBvoZHNv eGRiTNmmRl7jsRjatHmtL X2uRWGhxocrPVMjgL2eTQ HbvWQevDznME9fRICxfkj uc842CoNmEWU6 SJMhaTXaX8QixT6bZnCsX LEkQSDyE8HbmQZpFYjnY7 48EYllEaF5WKZqckKsP8D sLWFsaWduOiB0 l7Q5Ot0Wj1XxvhhjP5Jih YCqKwQeMtdjMCe6E4WrAq wvdHI+XT51ZBXqRI45NWr 5CVO8cYckBDvv HTXrF1TbtQ7wFpZsCPNwR GRkOyc+PHRhYmxlIHdpZH RoPScxMDAlJyBzdHlsZT0 wDc2eDYGePKDi mIzjqGLxIcZwv2joPYDnX BmbXZ8nrQkeF8DxpOL2EW Yyh5m2Lm78C52dP6FtiYQ +JDBydGO6ePV1 mJ1oKgVoFgD4DVwbN453I gLywCFgObemk1lxd2mqlP t0ZkW9YMLvxwOvvUkyCCU 3c0ZsAc11Z64t IHdpZHRoPSIxNSUiIHZhb Wbejm8rlP4aGn0+PGNvbC Z1tPK8bB7hQqXpKqB6IDo mM583GfMmxGHu Kmtmt5kpn8ccgGe5HcUeV VXruzKwkVntATI2j6WkOc 41Q2TprXitw5GdXkc4ch6 3yUNnk3Z3lLZ5 P4LbFQLjsrqrmSNkqDeaW Y9vTSPttbrzCQYbmN7hRQ BnA0l5EkFiRcU5QQutY2F clwF0HWSyeAXq YEEahOXAbW0tftprt6zbd cetIfOjYBSfOSc5UEg1HX JgbKalUfViXEL0VbV7HMA 9yQUxcV5uvFpy buvngT4oZxr+YBY1gHPjt HTGWY8wOpahyHW+PHRkIH B4yKilYTlfEGEgqJ4dPQX tO7f0PgOxUwN9 GPzpC0FektD6ADDhbOVjN BGqzKEVlI3iynury9inta zcYgHbALPrPUz0WLv8FIT saWduOiBsZWZ0 DpR9XSG2wDUohK4oeLeca raspK7eGlf+QmlydGggRG H3GLf1N9OxSnc6CGJzmHr bKI4edCPyGSwh Uu6suUkaeVmvLP0xKZHws elyo747JbYlo7baCJOmzU AcTFpxJTA5E86xy4D9WAB sBSMzKUK9cXZ7 yG0eaTrsretjkJPxsMalo oRtpXodYNweMWnuJ815UK OndAnnSvXzNLs5U2LgEpq 4FGJevLtzXM4a nCZkPXzdKh1rqEggfSatB C0gVSUcoomta873GpThf6 kvISSruEKoKGkyIYI0G42 ru0O9DUNcLURt CQM1gKW8yA1uwYaklwfuc GVmdDsgdmVydGljYWwtYW ngN078OGDzhNsbJyTtkNw 5P0JqFsm6GGWe aCkzVY7kuZUuCSpkHe3dp OeadHsePX6eVMZaldfcy0 29ZuRdc3wdTREsnKMfVXc pLZG1B11qm7K3 BXGkNFMdGKW5lXZ5sW3kc GlnbjogbGVmdDsgdmVydG snULkgFLnsF150ICIdhNz nPlBhdGllbnQg GNycCJh6P7RkQnculRC+P V34YRQqTT97jOEinHQls8 tviHx0AoLcCDAcMAC1kZw gAMvty1EzMTRw M38ahPEwh4E2NKXqyQkwc KAlRrCmoGM3eD1cXYufhs now8zqghakPiobw5khyf3 4hU69U22zJYib ZHRoPSIzMCUiIHZhbGlnb q7tkD4gCr3+DERseGS5eK S0uI8uKIXfTzI5AEklO75 9InRvcCIvPjxj u0ivf9bnyOy1YwS3MFUlu sNhsNtwRUY0n4WcNa62H3 9sIHdpZHRoPSIyMCUiIHZ ycDaepb6voE4l Ii8+INEvbEU6zRA0mU7lM cLpVnD0ZYvdA639LpKgyE GiSjzvQ24kF7JvvNI+PHR jHzp6AZVozMyu TS0vqPClCZfwPc6lHIQ3G gYuIsEaVDftR0PsORVeec jmvzlsrQU7JDPhUPOjuR0 2Ma9byBzwEHPg kYOUsU5pcukld2hsjfelS zVwACZxTDd9PSh7WXNwpY tlAiDkNFH2LzX3HSU6wAW amX7yxQbfndhu bY3iW2NtYUEsbkjoWl17s B8cTqXlOmS0RKccQlq+Q0 3DGBCDVUFIIPFVWW2ZZL2 KH81KPMgzeTB+ DVZeYXP5zXorYMfzVBVla P3xFKOkI7g6QaUdCaO0HM sxP0YeDQWatwrzLp45jB6 kOzUfQsZ1IOkw N2BkvgM8TGByxASwJYwiI RM8J60ot8T5UNCmRBSoDP X2tJL5uW9tzOfjfbsenBS mdDsgdmVydGlj AKokGBusW219UBZhtUjeW iA9VoO7RnB8JlN7D5TpXv g5BVYbzEcpJD7xhCWbRMk eFh2pqQzhfSvl LM2nNZObyzduBMEuuA0oY HJinYQufXskUS6wIRSzow apg774EsYiSYQ9HFMiuAL kR5PnjJ8mJuGv QNCfNUHwS7LuzQJuKOulD 527PAdmZhX9GOVvzbIgO3 TkPBWjsWcmIvG6n2P7Ag4 0NyBZZWFyczwv dGQ+OCYxPMW3hHcsFYisQ IPfgL0qLQCkY5w5ViFrVc E1IDvqI7IxMFOdjjgvAh2 3mF3hOfCdPkJ2 MWsxB9FwttO0IOUiqRFmV CpqRJZ0U86im5D9VDAsRE WnSXP3qWI6dE3mwEtljif gbGVmdDsgdmVy qYyvXBfyBSpbZ166MJBfc DsnPkZFTUFMRTwvdGQ+PH PcBCU6cJtnSOgiZVXvgW0 hDFXxB7m5RkMi AmM1ZJosE3UrDNLhltcaJ a67kF3iJrPyTqH0IGcrM3 OvwaJ6ONChmKNlONnrGHA 0J08vd7P3BMPl DLXgHVB7uXH8iV7iiEqxl jogbGVmdDsgdmVydGljYW lfJQvpW859GBFerFvhQfC lSAOrUP1bjDim dGQ+BK64zz70Z3FuIkalS hg1MBZmNDV8qQD4pM5nGK BoVIavb6F5hPQ5P0BkhtS uqw4kn0jySTYg MPcvY93mnGAwb8S9TYMxo FS1IVGznYdcQzVhsL08Sp c+JWCccEvhp6AyTwojj0m pv4akcYn6UbWi LZMathGkkWsuQKO5g1CcN h51G25lLYnoTABaHSTuYN LaNRPtrLhtwd6slS0sMp4 +RFMvvTX7fHM8 kM4iCtQsKtC3AYzmW497M rZndAHqYxdec1pkf8urzX d8BgUlDAXmaoDyyOteCIA 8u6GvLv70E6Zo qWtoo0UjFio1kv92xNOwg 6U6kQV8X0WsXLRvydjffJ DtnXorBH5qORHnhbstRTQ ddQ9yGBWmK3g0 YtLqNwU7PUwsH4VuzdC1U ACshPJzTGOlhSOWeD6ahw krd4axtxtmNmYmUIPrSSg 8AZv8ZVKuuWew TsEbSSW9LkY4FBG3uDQcj T7buJomfibrlL1kVqc+UG p4h9pkzVFiHP6epJO2FB3 6FV85nSYry5D6 pWN9G6QhVGKyexpbditnh HA1QTNdKSHvkP36Qa0efC thNc8cCCJcHBD6TSZxoYQ kP7ZtpJ7hIrBt WBSrJJYoU3AzfSUvKTpkH 645VQeyRrZ4UBKjlfCkR3 AeYFWwtSkfUkH2o9T6Jk1 SFF62FA14DN92 vKCdh7L8kOZ7S4MaJOJxb attzsqadAV4UVKcCHKgrM 46Tv7ghGjaNw1lOHVkCKI 5ATVmfMPrJ0Qs lO1rPyOaIYEkXBSrF3Lue REdZCkyI177NDbsZvS0MC ZjtwTkP9XzBVPrbQnrCmX 6h2V8Pk4JMe73 NV15QK92aHCwn6R8kJS1Y 7WeZWTyyjtzzdlzrHP4EC ZaZCFxyT17Gr4xgAdzYb6 cJTNuYRZ3RAEy gIAwQ4LuwQ7bVuEsMBYxU WEfX6XfvUSzGBosH210KL dsNmP4BRYidbReG5IvDNR ofMnaFfF0t7S5 Ya2UBJhubnn0L1RqJhlyu HI+YP36OOUmKF72hRIzhM Wvx3mzhTr6MiIpZDJlVRE 3rHkuYUuis2Su ZXI (more content not included)... Normal [facility] Ambulance Noteon 03-17-2024 Ambulance Note [id number]#[id number] OTGTIFF Normal [facility] C Urineon 03-17-2024 C Urine Urine Culture ordere d as a result of parameters set on specific urine dip and urine microsopic results. >100,000 cfu/ml Lactobacillus species Normal vaginal oleg isolated 10,000 cfu/ml Corynebacterium species (DIPTHEROID) No YOLANDE performed on this organism No pathogens isolated [facility] Comment on above: Performed By: #### 5 [id number], [id number] ####[facility] (DEFAULT)[address] [place] [address] .Auto Diff 1on 03-15-2024 Auto Crosby % 3 % Normal 12-12 [facility] Comment on above: Performed By: #### 5 [id number], [id number], [id number], [id number], [id number], [id number], [id number] #### [facility] (DEFAULT) [address] [place] [address] Baso Abs# 0.1 x10 Normal 0.0-0.2 [facility] Comment on above: Performed By: #### 5 [id number], [id number], [id number], [id number], [id number], 0567997, 7605381 #### [facility] (DEFAULT) [address] [place] [address] Basophils/100 WBC (Bld) 0.7 % Normal 0.2-2.0 [facility] Comment on above: Performed By: #### 5 [id number], [id number], [id number], [id number], [id number], 6406844, 4756926 #### [facility] (DEFAULT) [address] [place] [address] Eos Abs# 0.1 x10 Normal 0.0-0.4 [facility] Comment on above: Performed By: #### 5 [id number], [id number], [id number], [id number], [id number], 1451966, 3032025 #### [facility] (DEFAULT) [address] [place] [address]21 Eosinophils/100 WBC (Bld) 0.7 % Low 0.9-4.0 [facility] Comment on above: Performed By: #### 5 [id number], [id number], [id number], [id number], 0733461599, 2402812, 8439802 #### [facility] (DEFAULT) [address] [place] [address] 87438 Lymph Abs# 2.2 x10 Normal 1.3-2.9 [facility] Comment on above: Performed By: #### 5 [id number], [id number], [id number], 35846119, 2456688919, 6909362, 0173317 #### [facility] (DEFAULT) [address] [place] [address] 09428 Lymphocytes/100 WBC (Bld) 14 % Normal 14-48 [facility] Comment on above: Performed By: #### 5 [id number], [id number], [id number], 08672532, [id number], 7813863, 3845980 #### [facility] (DEFAULT) [address] [place] [address] Crosby Abs# 0.5 x10 Normal 0.0-0.8 [facility] Comment on above: Performed By: #### 5 [id number], [id number], [id number], [id number], [id number], 8907940, [id number] #### [facility] (DEFAULT) [address] [place] [address] Neut Abs# 13.5 x10 High 1.5-9.2 [facility] Comment on above: Result Comment: Slid e Reviewed Performed By: #### 5 [id number], [id number], [id number], [id number], [id number], 8342686, 5058428 #### [facility] (DEFAULT) [address] [place] [address] Neutrophils/100 WBC (Bld) 82 % Normal 44-88 [facility] Comment on above: Performed By: #### 5 [id number], [id number], [id number], [id number], [id number], 7621969, 3166585 #### [facility] (DEFAULT) [address] [place] [address] CBC w/ Auto Diffon 4 Erythrocyte distribution width (RBC) [Ratio] 13.3 % Normal 11.5-15.0 [facility] Comment on above: Performed By: #### 5 [id number], [id number], [id number], 45559914, 7187245709, 1733026, 4536801 #### [facility] (DEFAULT) [address] [place] [address] Hematocrit (Bld) [Volume fraction] 45.0 % High 33.7-40.4 [facility] Comment on above: Performed By: #### 5 [id number], [id number], [id number], 05580065, 9942192187, 7208437, 1619357 #### [facility] (DEFAULT) [address] [place] [address]184 Hemoglobin (Bld) [Mass/Vol] 15.0 g/dL Normal 11.3-15.9 [facility] Comment on above: Performed By: #### 5 [id number], [id number], [id number], [id number], [id number], 3132789, 1136313 #### [facility] (DEFAULT) [address] [place] [address] 73254 Man Diff? Auto Invalid Interpretation Code [facility] Comment on above: Performed By: #### 5 [id number], [id number], [id number], 75698494, 6085060389, 2403326, 5801141 #### [facility] (DEFAULT) [address] [place] [address] 20619 MCH (RBC) [Entitic mass] 32 pg Normal 24-34 [facility] Comment on above: Performed By: #### 5 [id number], [id number], [id number], 86633513, 1869309727, 2117569, 8290354 #### [facility] (DEFAULT) [address] [place] [address] 20775 MCHC (RBC) [Mass/Vol] 33 g/dL Normal 26-37 [facility] Comment on above: Performed By: #### 5 [id number], [id number], 4327185835, 09003009, 3620313419, 6497565, 8876595 #### [facility] (DEFAULT) [address] [place] [address] 16377 MCV (RBC) [Entitic vol] 95 fL Normal 81-100 [facility] Comment on above: Performed By: #### 5 [id number], [id number], 7761710475, 50607982, 5205184408, 0537322, 6666909 #### [facility] (DEFAULT) [address] [place] [address] 95187 Platelet 292 x10 Normal 138-427 [facility] Comment on above: Performed By: #### 5 [id number], [id number], 5261144083, 51061604, 2499131652, 2716580, 2558053 #### [facility] (DEFAULT) [address] [place] [address] Platelet mean volume (Bld) [Entitic vol] 8.7 fL Normal 6.3-10.2 [facility] Comment on above: Performed By: #### 5 [id number], [id number], 0136051110, 59783668, 8304724579, 1349113, 4597056 #### [facility] (DEFAULT) [address] [place] [address] RBC 4.74 x10 Normal 3.70-5.30 [facility] Comment on above: Performed By: #### 5 [id number], [id number], 8173267548, 79892406, 6995885930, 7215394, 4347287 #### [facility] (DEFAULT) [address] [place] [address] WBC 16.4 x10 High 3.5-10.5 [facility] Comment on above: Performed By: #### 5 [id number], 2217443972, 3189276386, 99515219, 3451238733, 4069783, 3437571 #### [facility] (DEFAULT) [address] [place] [address] 18210 CMP Standardon 03-15-2024 eGFR Non AA >60 Invalid Interpretation Code [facility] Comment on above: Performed By: #### 5 [id number], [id number], 1327970450, 09900377, 0705910360, 9979764, 7756548 #### [facility] (DEFAULT) [address] [place] [address] 74680 eGFR AA >60 Invalid Interpretation Code [facility] Comment on above: Performed By: #### 5 [id number], [id number], 7567341533, 17981125, 7707955967, 9190084, 2515649 #### [facility] (DEFAULT) [address] [place] [address] 95470 Albumin [Mass/Vol] 4.1 g/dL Normal 3.5-5.0 [facility] Comment on above: Performed By: #### 5 [id number], 9378219633, 4670281845, 46501575, 7338030746, 9506718, 3658151 #### [facility] (DEFAULT) [address] [place] [address] 73104 Albumin/Globulin [Mass ratio] 1.3 {ratio} Low 1.4-2.6 [facility] Comment on above: Performed By: #### 5 [id number], 4295154509, 1350921080, 76052263, 5327358347, 0174003, 4739050 #### [facility] (DEFAULT) [address] [place] [address] 93977 Alk Phos 39 IU/L Normal 32-91 [facility] Comment on above: Performed By: #### 5 [id number], 2391853341, 7949156395, 93550159, 0233535189, 0733197, 6358741 #### [facility] (DEFAULT) [address] [place] [address] 65318 ALT [Catalytic activity/Vol] 32.0 U/L Normal 14.0-54.0 [facility] Comment on above: Performed By: #### 5 [id number], [id number], 7898479553, 89316261, 6493028480, 2972329, 0389542 #### [facility] (DEFAULT) [address] [place] [address] 52062 Anion gap [Moles/Vol] 13.0 mmol/L Normal 5.0-19.0 [facility] Comment on above: Performed By: #### 5 [id number], [id number], 0420907122, 55079541, 1529334093, 9155782, 7536104 #### [facility] (DEFAULT) [address] [place] [address] 90110 AST [Catalytic activity/Vol] 25 U/L Normal 15-41 [facility] Comment on above: Performed By: #### 5 [id number], [id number], [id number], [id number], [id number], [id number], [id number] #### [facility] (DEFAULT) [address] [place] [address] 70111 Bili Total 1.4 mg/dL High 0.3-1.2 [facility] Comment on above: Performed By: #### 5 [id number], [id number], [id number], 68467960, [id number], 5787604, 7619523 #### [facility] (DEFAULT) [address] [place] [address] 12358 Calcium [Mass/Vol] 8.8 mg/dL Low 8.9-10.3 [facility] Comment on above: Performed By: #### 5 [id number], [id number], [id number], 82942697, [id number], 9769917, 8677654 #### [facility] (DEFAULT) [address] [place] [address] 62174 Chloride [Moles/Vol] 105 mmol/L Normal 101-111 [facility] Comment on above: Performed By: #### 5 [id number], [id number], [id number], 45942738, 5060412297, 2536758, 0186654 #### [facility] (DEFAULT) [address] [place] [address] 07151 CO2 [Moles/Vol] 24 mmol/L Normal 21-32 [facility] Comment on above: Performed By: #### 5 [id number], [id number], [id number], 95190549, 5963354527, 9816149, 6008679 #### [facility] (DEFAULT) [address] [place] [address] 93398 Creatinine [Mass/Vol] 0.72 mg/dL Normal 0.60-1.30 [facility] Comment on above: Performed By: #### 5 [id number], [id number], 6251369767, 20525190, 5773734274, 7612839, 6775823 #### [facility] (DEFAULT) [address] [place] [address] 58235 Globulin (S) [Mass/Vol] 3.0 g/dL Normal 1.5-4.3 [facility] Comment on above: Performed By: #### 5 [id number], [id number], 1106024812, 28973477, 5994817157, 3577522, 0898083 #### [facility] (DEFAULT) [address] [place] [address] 66307 Glucose [Mass/Vol] 124.0 mg/dL High 74.0-118.0 [facility] Comment on above: Performed By: #### 5 [id number], [id number], 6768619454, 01265222, 9574195822, 0025907, 8804913 #### [facility] (DEFAULT) [address] [place] [address] 22913 Osmolality 278 mOsm/L Invalid Interpretation Code [facility] Comment on above: Performed By: #### 5 [id number], [id number], 9682222810, 48390810, 7311301012, 0149692, 9268408 #### [facility] (DEFAULT) [address] [place] [address] 57596 Potassium [Moles/Vol] 4.0 mmol/L Normal 3.6-5.1 [facility] Comment on above: Performed By: #### 5 [id number], [id number], 4528193883, 54054467, 3770622257, 0388130, 1778611 #### [facility] (DEFAULT) [address] [place] [address] 48420 Protein [Mass/Vol] 7.1 g/dL Normal 6.5-8.1 [facility] Comment on above: Performed By: #### 5 [id number], [id number], 2963407371, 29252348, 4995724797, 2785762, 4166863 #### [facility] (DEFAULT) [address] [place] [address] 09417 Sodium [Moles/Vol] 138.0 mmol/L Normal 136.0-144.0 [facility] Comment on above: Performed By: #### 5 [id number], [id number], 6157577845, 35597851, 9966985278, 3405963, 7106094 #### [facility] (DEFAULT) [address] [place] [address] 98014 Urea nitrogen [Mass/Vol] 15 mg/dL Normal 8-26 [facility] Comment on above: Performed By: #### 5 [id number], 5367684663, 6797355587, 63624685, 1631086390, 5117467, 7598933 #### [facility] (DEFAULT) [address] [place] [address] 32483 Urea nitrogen/Creatinine [Mass ratio] 20.8 mg/mg High 4.6-16.2 [facility] Comment on above: Performed By: #### 5 [id number], [id number], 7806801490, 94277138, 1002160244, 0015261, 0834573 #### [facility] (DEFAULT) [address] [place] [address] 16710 Breakpoint Chem Normal [facility] Comment on above: Performed By: #### 5 [id number], [id number], 2046753550, 88804502, 3002859187, 3279597, 0685358 #### [facility] (DEFAULT) [address] [place] [address] 20039 ED Clinical Summaryon 2023 ED Clinical Summary [facility] - Emergency Department [address] [place] [address] ED Clinical Summary PERSON INFORMATION Name: HORACIO KEATING Age: 48 Years Sex: FEMALE : 1975 MRN: Acct#: Visit Reason: Shortness of breath; Anxiety; Blood pressure check; SOB Arrival: 03/15/2024 17:56:51 Discharge: 03/15/2024 20:31:00 LOS: 000 02:35 Check In: 03/15/2024 17:56:51 Checkout:03/15/2024 20:31:00 Address: [address] [place], [place] [id number] PCP: SAMI MARINELLI PROVIDER INFORMATION Provider Role Assigned Unassigned Nicola Neff DO ED Provider 03/15/2024 18:07:25 Solange MALHOTRA, Shanika Lawton ED Nurse 03/15/2024 18:08:57 Joanna Angeles ICHTHYOLOGY TEACHER Nurse 03/15/2024 19:24:01 VITALS INFORMATION Vital Sign [...] . Physical Exa (more content not included)... [facility] ED Note - Physicianon 2023 ED [...] No lymphadenopathy. Psychiatric: (more content not included)... [facility] ED Note-Nursingon 03-15-2024 ED Note-Nursing Patient presents to the ER via [facility] for shortness of breath, anxiety. Patient [...] cannula. 12 lead was regular in rate [facility] ED Patient Summaryon 024 ED Patient Summary [facility] - Emergency Department [address] [place] [address] PATIENT DISCHARGE INSTRUCTIONS Patient Information Name: HORACIO KEATING Age: 48 Years Date of : 1975 Reason For Visit: Shortness of breath; Anxiety; Blood pressure check; SOB Arrival Time: 03/15/2024 17:56:51 Primary Care Physician: SAMI MARINELLI Attending Physician: Nicola Neff DO Comment: Visit Diagnosis: Diagnoses This Visit Anxiety ([id number]) Blood pressure check ([id number]) Hypertension (I10) Panic attack (F41.0) Shortness of breath ([id number]) Urinary tract infection (N39.0) The Pharmacy at [facility] is open Friday through Friday from [...] alcohol and/or drug addiction problems; contact the [facility] 23/06 Crisis Hotline -Text 8BAWV wb [phone]. If you received any narcotics, sedation, or [...] legal documents With: Address: When: SAMI MARINELLI [address] [place] [address] [address] [place] [id number] Business (1) Within 3 to 5 days Comments: Call for follow up appointment Return if symptoms worsen Medication Information: The exam and treatment you received today in the [facility] Emergency Department were for an urgent problem and are not intended as complete care. It is important for you to follow up with a doctor, nurse practitioner, or physician?s bilingual office assistant for ongoing care. If your symptoms [...] so we can reach you if necessary. [facility] Emergency Department has provided you with a complete list of medications post discharge. Please inform your primary operator/provider of your visit and for further instruction [...] Vitals an (more content not included)... Normal [facility] Extra Greenon 03-15-2024 Tube Collected Yes Invalid Interpretation Code [facility] Comment on above: Performed By: #### 5 [id number], [id number], 1374814464, 33064940, 3543741607, 6448029, 2958878 #### [facility] (DEFAULT) [address] [place] [address] 10010 Extra Redon 03-15-2024 Tube Collected Yes Invalid Interpretation Code [facility] Comment on above: Performed By: #### 5 [id number], [id number], 3088623846, 41063296, 8197212740, 3008291, 3514422 #### [facility] (DEFAULT) [address] [place] [address] 58098 PTon 03-15-2024 INR Coag (PPP) [Relative time] 0.94 {INR} Normal 0.91-1.11 [facility] Comment on above: Performed By: #### 5 [id number], 2457831473, 5457582130, 08349607, 1568813756, 5452105, 2640033 #### [facility] (DEFAULT) [address] [place] [address] 32213 PT 9.8 second(s) Normal 9.7-11.8 [facility] Comment on above: Performed By: #### 5 [id number], [id number], 8002198843, 49980148, 0650254797, 1287403, 7398657 #### [facility] (DEFAULT) [address] [place] [address] 56173 TnI HSon 03-15-2024 Troponin I High Sensitivity 7.7 pg/mL Normal <=15.0 [facility] Comment on above: Performed By: #### 5 [id number], 2152364130, 4455073347, 36172113, 6538547167, 2143559, 8279936 #### [facility] (DEFAULT) [address] [place] [address] UA [id number] 03-15-2024 UA Amorph. 1+ [facility] Comment on above: Order Comment: Urina lysis Microscopic order added on by Discern Expert Rules system. Performed By: #### 5 [id number], [id number], 1246191 ####[facility] (DEFAULT)[address] [place] [address] UA Bacteria 3+ Normal [facility] Comment on above: Order Comment: Urina lysis Microscopic order added on by Discern Expert Rules system. Performed By: #### 5 [id number], [id number], 3542480 ####[facility] (DEFAULT)[address] [place] [address] UA Mucous 1+ [facility] Comment on above: Order Comment: Urina lysis Microscopic order added on by Discern Expert Rules system. Performed By: #### 5 [id number], [id number], 9963137 ####[facility] (DEFAULT)[address] [place] [address] UA RBC 3-5 [facility] Comment on above: Order Comment: Urina lysis Microscopic order added on by Discern Expert Rules system. Performed By: #### 5 [id number], [id number], 9141806 ####[facility] (DEFAULT)[address] [place] [address] UA Renal Epi Rare [facility] Comment on above: Order Comment: Urina lysis Microscopic order added on by Discern Expert Rules system. Performed By: #### 5 [id number], [id number], 0218382 ####[facility] (DEFAULT)[address] [place] [address] UA Squam Epi Many Normal [facility] Comment on above: Order Comment: Urina lysis Microscopic order added on by Discern Expert Rules system. Performed By: #### 5 [id number], [id number], 9574286 ####[facility] (DEFAULT)[address] [place] [address] UA WBC 3-5 [facility] Comment on above: Order Comment: Urina lysis Microscopic order added on by Discern Expert Rules system. Performed By: #### 5 [id number], [id number], 6789844 ####[facility] (DEFAULT)[address] [place] [address] UA w Culture if Ind Standard on 03-15-2024 Breakpoint UA [facility] Comment on above: Performed By: #### 5 [id number], [id number], 3754259 ####[facility] (DEFAULT)[address] [place] [address] Color (U) Yellow [facility] Comment on above: Performed By: #### 5 [id number], 4570114507, 7578814 ####[facility] (DEFAULT)[address] [place] [address] Culture? Indicated Invalid Interpretation Code [facility] Comment on above: Result Comment: Resu lt created by rule GL_MAGR_ADD_UA_CULT Result created by rule GL_MAGR_ADD_UA_CULT Result created by rule GL_MAGR_ADD_UA_CULT1 Result created by rule GL_MAGR_ADD_UA_CULT Performed By: #### 5 [id number], [id number], 5768138 ####[facility] (DEFAULT)[address] [place] [address] Glucose (U) [Mass/Vol] Negative [facility] Comment on above: Performed By: #### 5 [id number], [id number], 2314839 ####[facility] (DEFAULT)[address] [place] [address] Ketones Ql (U) Negative [facility] Comment on above: Performed By: #### 5 [id number], [id number], 9780158 ####[facility] (DEFAULT)[address] [place] [address] Micro? Indicated Invalid Interpretation Code [facility] Comment on above: Result Comment: Resu lt created by rule GL_MAGR_ADD_UA_MICRO Performed By: #### 5 [id number], [id number], 8799751 ####[facility] (DEFAULT)[address] [place] [address] UA Bilirubin Negative Normal [facility] Comment on above: Performed By: #### 5 [id number], [id number], 2401248 ####[facility] (DEFAULT)[address] [place] [address] 73910 UA Blood TRACE Abnormal NEGATIVE [facility] Comment on above: Performed By: #### 5 [id number], [id number], 1393897 ####[facility] (DEFAULT)[address] [place] [address] 91063 UA Clarity SL CLOUDY Abnormal CLEAR [facility] Comment on above: Performed By: #### 5 [id number], [id number], 7758264 ####[facility] (DEFAULT)[address] [place] [address] 08415 UA Leuk Est LARGE Abnormal NEGATIVE [facility] Comment on above: Performed By: #### 5 [id number], [id number], 6190178 ####[facility] (DEFAULT)[address] [place] [address] 30559 UA Nitrite Negative Normal [facility] Comment on above: Performed By: #### 5 [id number], [id number], 3457952 ####[facility] (DEFAULT)[address] [place] [address] 91747 UA pH 6.0 Normal 5-8 [facility] Comment on above: Performed By: #### 5 [id number], [id number], 4642080 ####[facility] (DEFAULT)[address] [place] [address] 59530 UA Protein Negative Normal NEGATIVE [facility] Comment on above: Performed By: #### 5 [id number], [id number], 6609784 ####[facility] (DEFAULT)[address] [place] [address] 47653 UA Spec Grav 1.015 Normal 1.001-1.035 [facility] Comment on above: Performed By: #### 5 [id number], [id number], 3569067 ####[facility] (DEFAULT)[address] [place] [address] 36818 UA Urobilinogen 0.2 mg/dL Normal 0.2-1.0 [facility] Comment on above: Performed By: #### 5 [id number], [id number], 4950041 ####[facility] (DEFAULT)[address] [place] [address] Urine Source Clean Catch Normal [facility] Comment on above: Performed By: #### 5 [id number], [id number], 4111416 ####[facility] (DEFAULT)[address] [place] [address] XR Chest 1 View Frontalon XR Chest [...] MD 03/15/24 7:34 pm Technologist: Lizzy BRICEÑO [facility] Calcium [Mass/volume] in Ser um or PlasmaOrdered By: Dedrick Fuller on 08-15-2023 Calcium [Mass/Vol] 9.1 mg/dL 8.6-10.3 [facility] Carbon dioxide, total [Moles /volume] in Serum or PlasmaOrdered By: Dedrick Fuller on 08-15-2023 CO2 [Moles/Vol] 26.7 mmol/L 21.0-31.0 [facility] Chloride [Moles/volume] in S altagracia or PlasmaOrdered By: Dedrick Fuller on 08-15-2023 Chloride [Moles/Vol] 107 mmol/L 98-107 [facility] Cholesterol [Mass/volume] in Serum or PlasmaOrdered By: Dedrick Fuller on 08-15-2023 Cholesterol [Mass/Vol] 166 mg/dL 140-200 [facility] Comment on above: Chol less than 200 m g/dl low riskChol 201-239 mg/dl borderline riskChol 240 mg/dl and greater high risk Cholesterol in LDL Calc [Mas s/Vol]Ordered By: Dedrick Fuller on 08-15-2023 Cholesterol in LDL [Mass/Vol] 95 mg/dL 0-100 [facility] Comment on above: LDL ATP III CLASSIFI CATIONLDL less than 100 mg/dL OptimalLDL 100-129 mg/dL Near or above optimalLDL 130-159 mg/dL Borderline highLDL 160-189 mg/dL HighLDL greater than 189 mg/dL Very high Cholesterol in VLDL Calc [Ma ss/Vol]Ordered By: Dedrick Fuller on 08-15-2023 Cholesterol in VLDL [Mass/Vol] 32 mg/dL [facility] Creatinine [Mass/volume] in Serum or PlasmaOrdered By: Dedrick Fuller on 08-15-2023 Creatinine [Mass/Vol] 0.77 mg/dL 0.60-1.20 [facility] Glucose [Mass/volume] in Ser um or PlasmaOrdered By: Dedrick Fuller on 08-15-2023 Glucose [Mass/Vol] 97 mg/dL 70-100 [facility] Comment on above: ADA recommended refe rence rangeRandom Glucose Reference Range is dependent on time and content of last meal. Glucose of more than 200 mg/dL in a nonstressed, ambulatory subject supports the diagnosis of Diabetes Mellitus. No Panel InformationOrdered By: Dedrick Fuller on 08-15-2023 Estimated GFR (CKD-EPI) > 60.0 mL/Min [facility] Creatinine Clearance (Chem N/A [facility] Potassium [Moles/volume] in Serum or PlasmaOrdered By: Dedrick Fuller on 08-15-2023 Potassium [Moles/Vol] 4.0 mmol/L 3.5-5.1 [facility] Serum or plasma anion gap de terminationOrdered By: Dedrick Fuller on 08-15-2023 Anion gap [Moles/Vol] 10.3 mmol/L 6.0-15.0 [facility] Serum or plasma high density lipoprotein (HDL) cholesterol measurementOrdered By: Dedrick Fuller on 08-15-2023 Cholesterol in HDL [Mass/Vol] 39 mg/dL 23-92 [facility] Comment on above: HDL CHOL ATP-III CLA SSIFICATION Cardiovascular RiskHDL > or equal to 60 mg/dL LOWHDL < 40 mg/dL HIGH Serum or plasma total choles terol/high density lipoprotein (HDL) cholesterol mass ratOrdered By: Dedrick Fuller on 08-15-2023 Cholesterol.total/Mirta sterol in HDL [Mass ratio] 4.3 {ratio} <5.0 [facility] Sodium [Moles/volume] in Ser um or PlasmaOrdered By: Dedrick Fuller on 08-15-2023 Sodium [Moles/Vol] 140 mmol/L 136-145 [facility] Triglyceride [Mass/volume] i n Serum or PlasmaOrdered By: Dedrick Fuller on 08-15-2023 Triglyceride [Mass/Vol] 162 mg/dL 0-149 [facility] Comment on above: TRIG ATP III CLASSIF ICATIONTRIG less than 150 mg/dL NormalTRIG 150-199 mg/dL Borderline highTRIG 200-500 mg/dL High TRIG greater than 500 mg/dL Very highStandard traceable to the Center for Disease Conrtrol and Prevention (CDC) test method. Urea nitrogen [Mass/volume] in Serum or PlasmaOrdered By: Dedrick Fuller on 08-15-2023 Urea nitrogen [Mass/Vol] 10 mg/dL 7-25 [facility] GTT 2 HRon 11-09-2022 Glucose [Mass/Vol] 107 mg/dL Critically high 74-106 [facility] Comment on above: Performed By: #### U LG, CRP #### [facility] [address] [place] [address] [address] Soo Donnelly Glucose [Mass/Vol] 152 mg/dL Normal [facility] Comment on above: Performed By: #### U LG, CRP #### [facility] [address] [place] [address] [address] Soo Donnelly Glucose [Mass/Vol] 121 mg/dL Normal [facility] Comment on above: Performed By: #### U LG, CRP #### [facility] [address] [address] [address] Soo Donnelly Facesheeton 11-05-2022 Facesheet [id number] .[id number]:[address] [facility] Physician Referralon Physician Referral [id number] .[id number]:[address] [facility] CT ABD/PELV W CONon 10-01-[address] [...] ELENA SAUCEDA Date: 2022-10-01 10:31 Normal [facility] CBC AUTO DIFFon 09-18-2022 BASO # 0.0 103/ul Normal 0.0-0.1 [facility] Comment on above: Performed By: #### A NAD #### [facility] [address] [place] [address] Dr. Soo Donnelly Basophils/100 WBC (Bld) 0.4 % Normal 0.2-2.0 [facility] Comment on above: Performed By: #### A NAD #### [facility] [address] [place] [address] Dr. Soo Donnelly EO # 0.1 103/ul Normal 0.0-0.7 [facility] Comment on above: Performed By: #### A NAD #### [facility] [address] [place] [address] Dr. Soo Donnelly Eosinophils/100 WBC (Bld) 1.8 % Normal 0.9-7.0 [facility] Comment on above: Performed By: #### A NAD #### [facility] [address] [place] [address] Dr. Soo Donnelly Erythrocyte distribution width (RBC) [Ratio] 11.9 % Normal 11.0-15.0 [facility] Comment on above: Performed By: #### A NAD #### [facility] [address] [place] [address] Dr. Soo Donnelly Hematocrit (Bld) [Volume fraction] 43.9 % Normal 36.0-48.0 [facility] Comment on above: Performed By: #### A NAD #### [facility] [address] [place] [address] Dr. Soo Donnelly Hemoglobin (Bld) [Mass/Vol] 14.6 g/dL Normal 12.0-16.0 [facility] Comment on above: Performed By: #### A NAD #### [facility] [address] [place] [address] Dr. Soo Donnelly IG # 0.01 10e3/ul Normal 0.00-0.03 [facility] Comment on above: Performed By: #### A NAD #### [facility] [address] [place] [address] Dr. Soo Donnelly IG % 0.1 % Normal 0.0-0.5 [facility] Comment on above: Performed By: #### A NAD #### [facility] [address] [place] [address] Dr. Soo Donnelly LYMPH # 2.7 103/ul Normal 1.2-3.8 [facility] Comment on above: Performed By: #### A NAD #### [facility] [address] [place] [address] Dr. Soo Donnelly Lymphocytes/100 WBC (Bld) 39.9 % Normal 20.5-60.0 [facility] Comment on above: Performed By: #### A NAD #### [facility] [address] [place] [address] Dr. Soo Donnelly MANUAL DIFF REQ NO Normal [facility] Comment on above: Performed By: #### A NAD #### [facility] [address] [place] [address] Dr. Soo Donnelly MCH (RBC) [Entitic mass] 31.7 pg Normal 26.7-34.0 [facility] Comment on above: Performed By: #### A NAD #### [facility] [address] [place] [address] Dr. Soo Donnelly MCHC (RBC) [Mass/Vol] 33.3 g/dL Normal 29.9-35.2 [facility] Comment on above: Performed By: #### A NAD #### [facility] [address] [place] [address] Dr. Soo Donnelly MCV (RBC) [Entitic vol] 95.4 fL Normal 81.0-99.0 [facility] Comment on above: Performed By: #### A NAD #### [facility] [address] [place] [address] Dr. Soo Donnelly MONO # 0.4 103/ul Normal 0.3-0.8 [facility] Comment on above: Performed By: #### A NAD #### [facility] [address] [place] [address] Dr. Soo Donnelly Monocytes/100 WBC (Bld) 5.9 % Normal 1.7-12.0 [facility] Comment on above: Performed By: #### A NAD #### [facility] [address] [place] [address] Dr. Soo Donnelly NEUT # 3.5 103/ul Normal 1.4-6.5 [facility] Comment on above: Performed By: #### A NAD #### [facility] [address] [place] [address] Dr. Soo Donnelly Neutrophils/100 WBC (Bld) 51.9 % Normal 43.0-75.0 [facility] Comment on above: Performed By: #### A NAD #### [facility] [address] [place] [address] Dr. Soo Donnelly Platelet mean volume (Bld) [Entitic vol] 10.8 fL Normal 9.5-13.5 [facility] Comment on above: Performed By: #### A NAD #### [facility] [address] [place] [address] Dr. Soo Donnelly PLT 220 103/ul Normal 150-450 [facility] Comment on above: Performed By: #### A NAD #### [facility] [address] [place] [address] Dr. Soo Donnelly RBC 4.60 106/ul Normal 4.20-5.40 [facility] Comment on above: Performed By: #### A NAD #### [facility] [address] [place] [address] Dr. Soo Donnelly WBC 6.8 103/ul Normal 4.0-11.0 [facility] Comment on above: Performed By: #### A NAD #### [facility] [address] [place] [address] Dr. Soo Donnelly ER URINE PROFILEon 2 Bilirubin Ql (U) Negative Normal NEGATIVE [facility] Comment on above: Performed By: #### U LG, CRP #### [facility] [address] [place] [address] Dr. Soo Donnelly Clarity (U) CLEAR Normal CLEAR [facility] Comment on above: Performed By: #### U LG, CRP #### [facility] [address] [place] [address] Dr. Soo Donnelly Color (U) LT. YELLOW Normal YELLOW [facility] Comment on above: Performed By: #### U LG, CRP #### [facility] [address] [address] [address] Soo CORTEZ A micrscopic examination will be performed if indicated. Normal [facility] Comment on above: Performed By: #### U LG, CRP #### [facility] [address] [place] [address] Dr. Soo Donnelly Glucose Ql (U) Negative Normal NEGATIVE [facility] Comment on above: Performed By: #### U LG, CRP #### [facility] [address] [address] Dr. Soo Donnelly Hemoglobin Ql (U) Negative Normal NEGATIVE [facility] Comment on above: Performed By: #### U LG, CRP #### [facility] [address] [place] [address] Dr. Soo Donnelly Ketones Ql (U) Negative Normal NEGATIVE [facility] Comment on above: Performed By: #### U LG, CRP #### [facility] [address] [place] [address] Dr. Soo Donnelly LEUKOCYTES Negative Normal NEGATIVE [facility] Comment on above: Performed By: #### U LG, CRP #### [facility] [address] [place] [address] Dr. Soo Donnelly Nitrite Ql (U) Negative Normal NEGATIVE [facility] Comment on above: Performed By: #### U LG, CRP #### [facility] [address] [place] [address] Dr. Soo Donnelly pH (U) 6.0 [pH] Normal 5-9 [facility] Comment on above: Performed By: #### U LG, CRP #### [facility] [address] [address] [address] Soo Donnelly SPEC GRAVITY 1.015 Normal 1.005-<=1.02 5 [facility] Comment on above: Performed By: #### U LG, CRP #### [facility] [address] [place] [address] Dr. Soo Donnelly UA PROTEIN Negative Normal NEGATIVE/ TRACE [facility] Comment on above: Performed By: #### U LG, CRP #### [facility] [address] [address] [address] Soo Donnelly UR MICRO IND NOT INDICATED Normal [facility] Comment on above: Performed By: #### U LG, CRP #### [facility] [address] [address] [address] Soo Donnelly Urobilinogen Qn (U) 0.2 {Roma'U}/dL Normal 0.2 - 1. 0 [facility] Comment on above: Performed By: #### U LG, CRP #### [facility] [address] [address] [address] Soo Donnelly PROF CHEM 8 (BAS METB)on Anion gap [Moles/Vol] 10.2 mmol/L Normal [facility] Comment on above: Performed By: #### B MP #### [facility] [address] [place] [address] Dr. Soo Donnelly Calcium [Mass/Vol] 8.7 mg/dL Normal 8.5-10.1 [facility] Comment on above: Performed By: #### B MP #### [facility] [address] [place] [address] Dr. Soo Donnelly Chloride [Moles/Vol] 103 mmol/L Normal 98-107 [facility] Comment on above: Performed By: #### B MP #### [facility] [address] [place] [address] Dr. Soo Donnelly CO2 [Moles/Vol] 27.9 mmol/L Normal 21.0-32.0 [facility] Comment on above: Performed By: #### B MP #### [facility] [address] [place] [address] Dr. Soo Donnelly Creatinine [Mass/Vol] 0.80 mg/dL Normal 0.55-1.02 [facility] Comment on above: Performed By: #### B MP #### [facility] [address] [place] [address] Dr. Soo Donnelly EGFR-AF SOMALI >60 Normal >=60 [facility] Comment on above: Performed By: #### B MP #### [facility] [address] [address] [address] Soo Donnelly EGFR-NON AF SOMALI >60 Normal >=60 [facility] Comment on above: Performed By: #### B MP #### [facility] [address] [address] [address] Soo Donnelly Glucose [Mass/Vol] 103 mg/dL Normal 74-106 [facility] Comment on above: Performed By: #### B MP #### [facility] [address] [address] [address] Soo Donnelly Potassium [Moles/Vol] 4.1 mmol/L Normal 3.5-5.1 [facility] Comment on above: Performed By: #### B MP #### [facility] [address] [address] [address] Soo Donnelly Sodium [Moles/Vol] 137 mmol/L Normal 136-145 [facility] Comment on above: Performed By: #### B MP #### [facility] [address] [address] [address] Soo Donnelly Urea nitrogen [Mass/Vol] 11.0 mg/dL Normal 7.0-18.0 [facility] Comment on above: Performed By: #### B MP #### [facility] [address] [address] [address] Soo Donnelly Urea nitrogen/Creatinine [Mass ratio] 13.8 mg/mg Normal [facility] Comment on above: Performed By: #### B MP #### [facility] [address] [address] [address] Soo Donnelly XR KUB 1 VIEWon [...] ELENA SAUCEDA Date: 2022-09-18 12:12 Normal [facility] MAMM SCREEN 3D DEAN CADon 09-12-2022 MG MAMM SCREEN 3D DEAN CAD Patient: HORACIO KEATING Exam Date: 09/12/2022 : 1975 Gender:F Ordering : DR DELGADO MURILLO . Admission #: [id number] Family : Order #: [id number] CLICK HERE TO VIEW EXAM RADIOLOGY REPORT [...] ovarian cancer at age 77. LOCATION: [facility] BREAST COMPOSITION: Scattered areas fibroglandular density. [...] MD on 09/13/2022 at 07:46 Normal [facility] INSULINon 07-20-2022 Insulin 25.5 uIU/mL Critically high 2.6-24.9 [facility] Comment on above: Performed By: #### U LG, CRP #### [facility] [address] [address] [address] Soo Donnelly T4 LABCORPon 07-20-2022 T4 [Mass/Vol] 7.4 ug/dL Normal 4.5-12.0 [facility] Comment on above: Performed By: #### A NAD #### [facility] [address] [place] [address] [id number] [address] Soo Donnelly CBC W MANUAL DIFFon 07-19-20 22 ATYPICAL LYMPH # Normal [facility] Comment on above: Performed By: #### B UN, CREA #### [facility] [address] [place] [address] Dr. Soo Donnelly ATYPICAL LYMPH % Normal [facility] Comment on above: Performed By: #### B UN, CREA #### [facility] [address] [place] [address] Dr. Soo Donnelly BAND # Normal 0.0-0.3 [facility] Comment on above: Performed By: #### B UN, CREA #### [facility] [address] [place] [address] Dr. Soo Donnelly BAND % Normal 0-5 [facility] Comment on above: Performed By: #### B UN, CREA #### [facility] [address] [place] [address] Dr. Soo Donnelly BASOM # 0.00 103/ul Normal 0.00-0.10 [facility] Comment on above: Performed By: #### B UN, CREA #### [facility] [address] [place] [address] Dr. Soo Donnelly BASOM % 0.0 % Critically low 0.2-2.0 [facility] Comment on above: Performed By: #### B UN, CREA #### [facility] [address] [place] [address] Dr. Soo Donnelly BLAST # Normal [facility] Comment on above: Performed By: #### B UN, CREA #### [facility] [address] [place] [address] Dr. Soo Donnelly BLAST % Normal [facility] Comment on above: Performed By: #### B UN, CREA #### [facility] [address] [place] [address] Dr. Soo Donnelly CORRECTED WBC Normal 4.0-11.0 [facility] Comment on above: Performed By: #### B UN, CREA #### [facility] [address] [place] [address] Dr. Soo Donnelly EOS # 0.31 103/ul Normal 0.00-0.70 [facility] Comment on above: Performed By: #### B UN, CREA #### [facility] [address] [place] [address] Dr. Soo Donnelly EOS% 2.0 % Normal 0.9-7.0 [facility] Comment on above: Performed By: #### B UN, CREA #### [facility] [address] [place] [address] Dr. Soo Donnelly HCT 41.6 % Normal 36.0-48.0 [facility] Comment on above: Performed By: #### B UN, CREA #### [facility] [address] [place] [address] Dr. Soo Donnelly HGB 13.8 g/dl Normal 12.0-16.0 [facility] Comment on above: Performed By: #### B UN, CREA #### [facility] [address] [place] [address] Dr. Soo Donnelly LYMPHM # 5.27 103/ul Critically high 1.20-3.80 [facility] Comment on above: Performed By: #### B UN, CREA #### [facility] [address] [place] [address] Dr. Soo Donnelly LYMPHM% 34.0 % Normal 20.5-60.0 [facility] Comment on above: Performed By: #### B UN, CREA #### [facility] [address] [place] [address] Dr. Soo Donnelly MCH 31.5 pg Normal 26.7-34.0 [facility] Comment on above: Performed By: #### B UN, CREA #### [facility] [address] [place] [address] Dr. Soo Donnelly MCHC 33.2 g/dl Normal 29.9-35.2 [facility] Comment on above: Performed By: #### B UN, CREA #### [facility] [address] [place] [address] Dr. Soo Donnelly MCV 95.0 fL Normal 81.0-99.0 [facility] Comment on above: Performed By: #### B UN, CREA #### [facility] [address] [place] [address] Dr. Soo Donnelly METAMYELOCYTE # Normal [facility] Comment on above: Performed By: #### B UN, CREA #### [facility] [address] [place] [address] Dr. Soo Donnelly METAMYELOCYTE % Normal [facility] Comment on above: Performed By: #### B UN, CREA #### [facility] [address] [place] [address] Dr. Soo Donnelly MONOM# 0.93 103/ul Critically high 0.30-0.80 [facility] Comment on above: Performed By: #### B UN, CREA #### [facility] [address] [place] [address] Dr. Soo Donnelly MONOM% 6.0 % Normal 1.7-12.0 [facility] Comment on above: Performed By: #### B UN, CREA #### [facility] [address] [place] [address] Dr. Soo Donnelly MPV 10.1 fL Normal 9.5-13.5 [facility] Comment on above: Performed By: #### B UN, CREA #### [facility] [address] [place] [address] Dr. Soo Donnelly MYELOCYTE # Normal [facility] Comment on above: Performed By: #### B UN, CREA #### [facility] [address] [place] [address] Dr. Soo Donnelly MYELOCYTE % Normal [facility] Comment on above: Performed By: #### B UN, CREA #### [facility] [address] [place] [address] Dr. Soo Donnelly NRBC Normal [facility] Comment on above: Performed By: #### B UN, CREA #### [facility] [address] [place] [address] Dr. Soo Donnelly PLT 260 103/ul Normal 150-450 [facility] Comment on above: Performed By: #### B UN, CREA #### [facility] [address] [address] [address] Soo Donnelly RBC 4.38 106/ul Normal 4.20-5.40 [facility] Comment on above: Performed By: #### B UN, CREA #### [facility] [address] [address] [address] Soo Donnelly RDW 12.5 % Normal 11.0-15.0 [facility] Comment on above: Performed By: #### B UN, CREA #### [facility] [address] [address] [address] Soo Donnelly SEG # 8.99 103/ul Critically high 1.40-6.50 [facility] Comment on above: Performed By: #### B UN, CREA #### [facility] [address] [address] [address] Soo Donnelly SEG % 58.0 % Normal 43.0-75.0 [facility] Comment on above: Performed By: #### B UN, CREA #### [facility] [address] [address] [address] Soo Donnelly WBC 15.5 103/ul Critically high 4.0-11.0 [facility] Comment on above: Performed By: #### B UN, CREA #### [facility] [address] [address] [address] Soo Donnelly FREE T3on 07-19-2022 FREE T3 2.62 pg/mlL Normal 2.18-3.98 [facility] Comment on above: Performed By: #### U LG, CRP #### [facility] [address] [address] [address] Soo Donnelly GLYCOHEMOGLOBIN A1Con 2021 ADA RECOMMENDATION SEE BELOW Normal [facility] Comment on above: Result Comment: ADA RECOMMENDED LIMIT 4.0 - 6.0 ADA THERAPEUTIC TARGET < 7.0 ACTION SUGGESTED > 7.0 Performed By: #### U LG, CRP #### [facility] [address] [address] [address] Soo Donnelly Glucose [Mass/Vol] 137 mg/dL Normal [facility] Comment on above: Performed By: #### U LG, CRP #### [facility] [address] [address] [address] Soo Donnelly HbA1c (Bld) [Mass fraction] 6.4 % Critically high 4.5-6.2 [facility] Comment on above: Performed By: #### U LG, CRP #### [facility] [address] [address] [address] Soo Donnelly LIPID PROFILEon 07-19-2022 CHOL-HDL RATIO NORM SEE BELOW Normal [facility] Comment on above: Result Comment: 3.3 - 4.4 LOW RISK 4.4 - 7.1 AVERAGE RISK 7.1 - 11.0 MODERATE RISK >11.0 HIGH RISK Performed By: #### U LG, CRP #### [facility] [address] [address] [address] Soo Donnelly Cholesterol [Mass/Vol] 226 mg/dL Critically high <=200 [facility] Comment on above: Performed By: #### U LG, CRP #### [facility] [address] [address] [address] Soo Donnelly Cholesterol in HDL [Mass/Vol] 33 mg/dL Critically low 40-60 [facility] Comment on above: Performed By: #### U LG, CRP #### [facility] [address] [address] [address] Soo Donnelly Cholesterol in LDL [Mass/Vol] 135.2 mg/dL Normal [facility] Comment on above: Performed By: #### U LG, CRP #### [facility] [address] [address] [address] Soo Donnelly Cholesterol.total/Mirta sterol in HDL [Mass ratio] 6.8 {ratio} Normal [facility] Comment on above: Performed By: #### U LG, CRP #### [facility] [address] [address] [address] Soo Donnelly HDL NORMAL > or = 60 mg/dl - LO W CARDIOVASCULAR RISK <40 mg/dl - HIGH CARDIOVASCULAR RISK Normal [facility] Comment on above: Performed By: #### U LG, CRP #### [facility] [address] [address] [address] Soo Donnelly LDL CALC NORMAL SEE BELOW Normal [facility] Comment on above: Result Comment: <100 mg/dl OPTIMAL 100 - 129 mg/dl NEAR OR ABOVE OPTIMAL 130 - 159 mg/dl BORDERLINE HIGH 160 - 189 mg/dl HIGH >190 mg/dl VERY HIGH Performed By: #### U LG, CRP #### [facility] [address] [address] [address] Soo Donnelly Triglyceride [Mass/Vol] 289 mg/dL Critically high <=150 [facility] Comment on above: Performed By: #### U LG, CRP #### [facility] [address] [address] [address] Soo Donnelly VLDL CALC 57.8 mg/dL Normal [facility] Comment on above: Performed By: #### U LG, CRP #### [facility] [address] [address] [address] Soo Donnelly PROF 14(COMP METB)on 022 Albumin [Mass/Vol] 3.2 g/dL Critically low 3.4-5.0 [facility] Comment on above: Performed By: #### U LG, CRP #### [facility] [address] [address] [address] Soo Donnelly Albumin/Globulin [Mass ratio] 1.1 {ratio} Normal [facility] Comment on above: Performed By: #### U LG, CRP #### [facility] [address] [address] [address] Soo Donnelly ALP [Catalytic activity/Vol] 41 U/L Critically low 46-116 [facility] Comment on above: Performed By: #### U LG, CRP #### [facility] [address] [address] [address] Soo Donnelly ALT [Catalytic activity/Vol] 46 U/L Normal 14-59 [facility] Comment on above: Performed By: #### U LG, CRP #### [facility] [address] [address] [address] Soo Donnelly Anion gap [Moles/Vol] 9.3 mmol/L Normal [facility] Comment on above: Performed By: #### U LG, CRP #### [facility] [address] [address] [address] Soo Donnelly AST [Catalytic activity/Vol] 18 U/L Normal 15-37 [facility] Comment on above: Performed By: #### U LG, CRP #### [facility] [address] [address] [address] Soo Donnelly Bilirubin [Mass/Vol] 0.7 mg/dL Normal 0.2-1.0 [facility] Comment on above: Performed By: #### U LG, CRP #### [facility] [address] [address] [address] Soo Donnelly Calcium [Mass/Vol] 8.1 mg/dL Critically low 8.5-10.1 [facility] Comment on above: Performed By: #### U LG, CRP #### [facility] [address] [address] [address] Soo Donnelly Chloride [Moles/Vol] 101 mmol/L Normal 98-107 [facility] Comment on above: Performed By: #### U LG, CRP #### [facility] [address] [address] [address] Soo Donnelly CO2 [Moles/Vol] 31.1 mmol/L Normal 21.0-32.0 [facility] Comment on above: Performed By: #### U LG, CRP #### [facility] [address] [address] [address] Soo Donnelly Creatinine [Mass/Vol] 0.77 mg/dL Normal 0.55-1.02 [facility] Comment on above: Performed By: #### U LG, CRP #### [facility] [address] [address] [address] Soo Donnelly EGFR-AF SOMALI >60 Normal >=60 [facility] Comment on above: Performed By: #### U LG, CRP #### [facility] [address] [address] [address] Soo Donnelly EGFR-NON AF SOMALI >60 Normal >=60 [facility] Comment on above: Performed By: #### U LG, CRP #### [facility] [address] [address] [address] Soo Donnelly Globulin (S) [Mass/Vol] 3.0 g/dL Normal [facility] Comment on above: Performed By: #### U LG, CRP #### [facility] [address] [address] [address] Soo Donnelly Glucose [Mass/Vol] 104 mg/dL Normal 74-106 [facility] Comment on above: Performed By: #### U LG, CRP #### [facility] [address] [address] [address] Soo Donnelly Potassium [Moles/Vol] 3.4 mmol/L Critically low 3.5-5.1 [facility] Comment on above: Performed By: #### U LG, CRP #### [facility] [address] [address] [address] Soo Donnelly Protein [Mass/Vol] 6.2 g/dL Critically low 6.4-8.2 [facility] Comment on above: Performed By: #### U LG, CRP #### [facility] [address] [address] [address] Soo Donnelly Sodium [Moles/Vol] 138 mmol/L Normal 136-145 [facility] Comment on above: Performed By: #### U LG, CRP #### [facility] [address] [address] [address] Soo Donnelly Urea nitrogen [Mass/Vol] 16.0 mg/dL Normal 7.0-18.0 [facility] Comment on above: Performed By: #### U LG, CRP #### [facility] [address] [address] [address] Soo Donnelly Urea nitrogen/Creatinine [Mass ratio] 20.8 mg/mg Normal [facility] Comment on above: Performed By: #### U LG, CRP #### [facility] [address] [address] [address] Soo Donnelly TSHon 07-19-2022 TSH 3.262 uIU/mL Normal 0.358-3.740 [facility] Comment on above: Performed By: #### U LG, CRP #### [facility] [address] [address] [address] Soo Donnelly CBC AUTO DIFFon 05-18-2022 BASO # 0.0 103/ul Normal 0.0-0.1 [facility] Comment on above: Performed By: #### U LG, CRP #### [facility] [address] [address] [address] Soo Donnelly Basophils/100 WBC (Bld) 0.2 % Normal 0.2-2.0 [facility] Comment on above: Performed By: #### U LG, CRP #### [facility] [address] [address] [address] Soo Donnelly EO # 0.0 103/ul Normal 0.0-0.7 [facility] Comment on above: Performed By: #### U LG, CRP #### [facility] [address] [address] [address] Soo Donnelly Eosinophils/100 WBC (Bld) 0.2 % Critically low 0.9-7.0 [facility] Comment on above: Performed By: #### U LG, CRP #### [facility] [address] [address] [address] Soo Donnelly Erythrocyte distribution width (RBC) [Ratio] 12.8 % Normal 11.0-15.0 [facility] Comment on above: Performed By: #### U LG, CRP #### [facility] [address] [address] [address] Soo Donnelly Hematocrit (Bld) [Volume fraction] 35.7 % Critically low 36.0-48.0 [facility] Comment on above: Performed By: #### U LG, CRP #### [facility] [address] [address] [address] Soo Donnelly Hemoglobin (Bld) [Mass/Vol] 11.5 g/dL Critically low 12.0-16.0 [facility] Comment on above: Performed By: #### U LG, CRP #### [facility] [address] [place] [address] Dr. Soo Donnelly IG # 0.07 10e3/ul Critically high 0.00-0.03 [facility] Comment on above: Performed By: #### U LG, CRP #### [facility] [address] [place] [address] Dr. Soo Donnelly IG % 0.5 % Normal 0.0-0.5 [facility] Comment on above: Performed By: #### U LG, CRP #### [facility] [address] [place] [address] Dr. Soo Donnelly LYMPH # 4.1 103/ul Critically high 1.2-3.8 [facility] Comment on above: Performed By: #### U LG, CRP #### [facility] [address] [place] [address] Dr. Soo Donnelly Lymphocytes/100 WBC (Bld) 28.3 % Normal 20.5-60.0 [facility] Comment on above: Performed By: #### U LG, CRP #### [facility] [address] [place] [address] Dr. Soo Donnelly MANUAL DIFF REQ NO Normal [facility] Comment on above: Performed By: #### U LG, CRP #### [facility] [address] [place] [address] Dr. Soo Donnelly MCH (RBC) [Entitic mass] 31.7 pg Normal 26.7-34.0 [facility] Comment on above: Performed By: #### U LG, CRP #### [facility] [address] [place] [address] Dr. Soo Donnelly MCHC (RBC) [Mass/Vol] 32.2 g/dL Normal 29.9-35.2 [facility] Comment on above: Performed By: #### U LG, CRP #### [facility] [address] [place] [address] Dr. Soo Donnelly MCV (RBC) [Entitic vol] 98.3 fL Normal 81.0-99.0 [facility] Comment on above: Performed By: #### U LG, CRP #### [facility] [address] [place] [address] Dr. Soo Donnelly MONO # 0.8 103/ul Normal 0.3-0.8 [facility] Comment on above: Performed By: #### U LG, CRP #### [facility] [address] [place] [address] Dr. Soo Donnelly Monocytes/100 WBC (Bld) 5.6 % Normal 1.7-12.0 [facility] Comment on above: Performed By: #### U LG, CRP #### [facility] [address] [place] [address] Dr. Soo Donnelly NEUT # 9.4 103/ul Critically high 1.4-6.5 [facility] Comment on above: Performed By: #### U LG, CRP #### [facility] [address] [place] [address] Dr. Soo Donnelly Neutrophils/100 WBC (Bld) 65.2 % Normal 43.0-75.0 [facility] Comment on above: Performed By: #### U LG, CRP #### [facility] [address] [place] [address] Dr. Soo Donnelly Platelet mean volume (Bld) [Entitic vol] 10.8 fL Normal 9.5-13.5 [facility] Comment on above: Performed By: #### U LG, CRP #### [facility] [address] [place] [address] Dr. Soo Donnelly PLT 191 103/ul Normal 150-450 [facility] Comment on above: Performed By: #### U LG, CRP #### [facility] [address] [place] [address] Dr. Soo Donnelly RBC 3.63 106/ul Critically low 4.20-5.40 [facility] Comment on above: Performed By: #### U LG, CRP #### [facility] [address] [place] [address] Dr. Soo Donnelly WBC 14.4 103/ul Critically high 4.0-11.0 [facility] Comment on above: Performed By: #### U LG, CRP #### [facility] [address] [place] [address] Dr. Soo Donnelly BUNon 05-17-2022 Urea nitrogen [Mass/Vol] 8.0 mg/dL Normal 7.0-18.0 [facility] Comment on above: Performed By: #### B UN, CREA #### [facility] [address] [place] [address] Dr. Soo Donnelly CBC AUTO DIFFon 05-17-2022 BASO # 0.0 103/ul Normal 0.0-0.1 [facility] Comment on above: Performed By: #### U LG, CRP #### [facility] [address] [place] [address] Dr. Soo Donnelly Basophils/100 WBC (Bld) 0.1 % Critically low 0.2-2.0 [facility] Comment on above: Performed By: #### U LG, CRP #### [facility] [address] [place] [address] Dr. Soo Donnelly EO # 0.0 103/ul Normal 0.0-0.7 [facility] Comment on above: Performed By: #### U LG, CRP #### [facility] [address] [place] [address] Dr. Soo Donnelly Eosinophils/100 WBC (Bld) 0.0 % Critically low 0.9-7.0 [facility] Comment on above: Performed By: #### U LG, CRP #### [facility] [address] [place] [address] Dr. Soo Donnelly Erythrocyte distribution width (RBC) [Ratio] 12.5 % Normal 11.0-15.0 [facility] Comment on above: Performed By: #### U LG, CRP #### [facility] [address] [place] [address] Dr. Soo Donnelly Hematocrit (Bld) [Volume fraction] 38.5 % Normal 36.0-48.0 [facility] Comment on above: Performed By: #### U LG, CRP #### [facility] [address] [address] [address] Soo Donnelly Hemoglobin (Bld) [Mass/Vol] 13.0 g/dL Normal 12.0-16.0 [facility] Comment on above: Performed By: #### U LG, CRP #### [facility] [address] [address] [address] Soo Donnelly IG # 0.16 10e3/ul Critically high 0.00-0.03 [facility] Comment on above: Performed By: #### U LG, CRP #### [facility] [address] [address] [address] Soo Donnelly IG % 0.7 % Critically high 0.0-0.5 [facility] Comment on above: Performed By: #### U LG, CRP #### [facility] [address] [place] [address] Dr. Soo Donnelly LYMPH # 3.0 103/ul Normal 1.2-3.8 [facility] Comment on above: Performed By: #### U LG, CRP #### [facility] [address] [address] [address] Soo Donnelly Lymphocytes/100 WBC (Bld) 12.2 % Critically low 20.5-60.0 [facility] Comment on above: Performed By: #### U LG, CRP #### [facility] [address] [address] [address] Soo Donnelly MANUAL DIFF REQ NO Normal [facility] Comment on above: Performed By: #### U LG, CRP #### [facility] [address] [address] [address] Soo Donnelly MCH (RBC) [Entitic mass] 32.4 pg Normal 26.7-34.0 [facility] Comment on above: Performed By: #### U LG, CRP #### [facility] [address] [address] [address] Soo Donnelly MCHC (RBC) [Mass/Vol] 33.8 g/dL Normal 29.9-35.2 [facility] Comment on above: Performed By: #### U LG, CRP #### [facility] [address] [address] [address] Soo Donnelly MCV (RBC) [Entitic vol] 96.0 fL Normal 81.0-99.0 [facility] Comment on above: Performed By: #### U LG, CRP #### [facility] [address] [place] [address] Dr. Soo Donnelly MONO # 1.3 103/ul Critically high 0.3-0.8 [facility] Comment on above: Performed By: #### U LG, CRP #### [facility] [address] [place] [address] Dr. Soo Donnelly Monocytes/100 WBC (Bld) 5.4 % Normal 1.7-12.0 [facility] Comment on above: Performed By: #### U LG, CRP #### [facility] [address] [place] [address] Dr. Soo Donnelly NEUT # 19.8 103/ul Critically high 1.4-6.5 [facility] Comment on above: Performed By: #### U LG, CRP #### [facility] [address] [place] [address] Dr. Soo Donnelly Neutrophils/100 WBC (Bld) 81.6 % Critically high 43.0-75.0 [facility] Comment on above: Performed By: #### U LG, CRP #### [facility] [address] [place] [address] Dr. Soo Donnelly Platelet mean volume (Bld) [Entitic vol] 10.5 fL Normal 9.5-13.5 [facility] Comment on above: Performed By: #### U LG, CRP #### [facility] [address] [place] [address] Dr. Soo Donnelly PLT 253 103/ul Normal 150-450 [facility] Comment on above: Performed By: #### U LG, CRP #### [facility] [address] [place] [address] Dr. Soo Donnelly RBC 4.01 106/ul Critically low 4.20-5.40 [facility] Comment on above: Performed By: #### U LG, CRP #### [facility] [address] [address] [address] Soo Donnelly WBC 24.3 103/ul Critically high 4.0-11.0 [facility] Comment on above: Performed By: #### U LG, CRP #### [facility] [address] [place] [address] Dr. Soo Donnelly BASO # 0.0 103/ul Normal 0.0-0.1 [facility] Comment on above: Performed By: #### U LG, CRP #### [facility] [address] [place] [address] Dr. Soo Donnelly Basophils/100 WBC (Bld) 0.1 % Critically low 0.2-2.0 [facility] Comment on above: Performed By: #### U LG, CRP #### [facility] [address] [place] [address] Dr. Soo Donnelly EO # 0.0 103/ul Normal 0.0-0.7 [facility] Comment on above: Performed By: #### U LG, CRP #### [facility] [address] [place] [address] Dr. Soo Donnelly Eosinophils/100 WBC (Bld) 0.0 % Critically low 0.9-7.0 [facility] Comment on above: Performed By: #### U LG, CRP #### [facility] [address] [place] [address] Dr. Soo Donnelly Erythrocyte distribution width (RBC) [Ratio] 12.3 % Normal 11.0-15.0 [facility] Comment on above: Performed By: #### U LG, CRP #### [facility] [address] [place] [address] Dr. Soo Donnelly Hematocrit (Bld) [Volume fraction] 41.2 % Normal 36.0-48.0 [facility] Comment on above: Performed By: #### U LG, CRP #### [facility] [address] [place] [address] Dr. Soo Donnelly Hemoglobin (Bld) [Mass/Vol] 13.5 g/dL Normal 12.0-16.0 [facility] Comment on above: Performed By: #### U LG, CRP #### [facility] [address] [address] [address] Soo Donnelly IG # 0.11 10e3/ul Critically high 0.00-0.03 [facility] Comment on above: Performed By: #### U LG, CRP #### [facility] [address] [address] [address] Soo Donnelly IG % 0.5 % Normal 0.0-0.5 [facility] Comment on above: Performed By: #### U LG, CRP #### [facility] [address] [place] [address] Dr. Soo Donnelly LYMPH # 1.6 103/ul Normal 1.2-3.8 [facility] Comment on above: Performed By: #### U LG, CRP #### [facility] [address] [place] [address] Dr. Soo Donnelly Lymphocytes/100 WBC (Bld) 7.8 % Critically low 20.5-60.0 [facility] Comment on above: Performed By: #### U LG, CRP #### [facility] [address] [place] [address] Dr. Soo Donnelly MANUAL DIFF REQ NO Normal [facility] Comment on above: Performed By: #### U LG, CRP #### [facility] [address] [place] [address] Dr. Soo Donnelly MCH (RBC) [Entitic mass] 31.8 pg Normal 26.7-34.0 [facility] Comment on above: Performed By: #### U LG, CRP #### [facility] [address] [place] [address] Dr. Soo Donnelly MCHC (RBC) [Mass/Vol] 32.8 g/dL Normal 29.9-35.2 [facility] Comment on above: Performed By: #### U LG, CRP #### [facility] [address] [place] [address] Dr. Soo Donnelly MCV (RBC) [Entitic vol] 96.9 fL Normal 81.0-99.0 [facility] Comment on above: Performed By: #### U LG, CRP #### [facility] [address] [place] [address] Dr. Soo Donnelly MONO # 0.4 103/ul Normal 0.3-0.8 [facility] Comment on above: Performed By: #### U LG, CRP #### [facility] [address] [place] [address] Dr. Soo Donnelly Monocytes/100 WBC (Bld) 2.0 % Normal 1.7-12.0 [facility] Comment on above: Performed By: #### U LG, CRP #### [facility] [address] [place] [address] Dr. Soo Donnelly NEUT # 18.1 103/ul Critically high 1.4-6.5 [facility] Comment on above: Performed By: #### U LG, CRP #### [facility] [address] [place] [address] Dr. Soo Donnelly Neutrophils/100 WBC (Bld) 89.6 % Critically high 43.0-75.0 [facility] Comment on above: Performed By: #### U LG, CRP #### [facility] [address] [place] [address] Dr. Soo Donnelly Platelet mean volume (Bld) [Entitic vol] 11.0 fL Normal 9.5-13.5 [facility] Comment on above: Performed By: #### U LG, CRP #### [facility] [address] [place] [address] Dr. Soo Donnelly PLT 223 103/ul Normal 150-450 [facility] Comment on above: Performed By: #### U LG, CRP #### [facility] [address] [place] [address] Dr. Soo Donnelly RBC 4.25 106/ul Normal 4.20-5.40 [facility] Comment on above: Performed By: #### U LG, CRP #### [facility] [address] [place] [address] Dr. Soo Donnelly WBC 20.2 103/ul Critically high 4.0-11.0 [facility] Comment on above: Performed By: #### U LG, CRP #### [facility] [address] [address] [address] Soo Donnelly CREATININEon 05-17-2022 Creatinine [Mass/Vol] 0.97 mg/dL Normal 0.55-1.02 [facility] Comment on above: Performed By: #### B UN, CREA #### [facility] [address] [address] [address] Soo Donnelly EGFR-AF SOMALI >60 Normal >=60 [facility] Comment on above: Performed By: #### B UN, CREA #### [facility] [address] [address] [address] Soo Donnelly EGFR-NON AF SOMALI >60 Normal >=60 [facility] Comment on above: Performed By: #### B UN, CREA #### [facility] [address] [address] [address] Soo Donnelly CTA CHEST WO W [...] ELENA SAUCEDA Date: 2022-05-17 16:40 Normal [facility] XR CHEST 2 Von 05-17-2022 XR [...] SAMI JONES Date: 2022-05-17 16:10 Normal [facility] CBC AUTO DIFFon 05-16-2022 BASO # 0.1 103/ul Normal 0.0-0.1 [facility] Comment on above: Performed By: #### B , CREA #### [facility] [address] [place] [address] Dr. Soo Donnelly Basophils/100 WBC (Bld) 0.5 % Normal 0.2-2.0 [facility] Comment on above: Performed By: #### B , CREA #### [facility] [address] [place] [address] Dr. Soo Donnelly EO # 0.1 103/ul Normal 0.0-0.7 [facility] Comment on above: Performed By: #### B , CREA #### [facility] [address] [place] [address] Dr. Soo Donnelly Eosinophils/100 WBC (Bld) 1.0 % Normal 0.9-7.0 [facility] Comment on above: Performed By: #### B UN, CREA #### [facility] [address] [place] [address] Dr. Soo Donnelly Erythrocyte distribution width (RBC) [Ratio] 12.2 % Normal 11.0-15.0 [facility] Comment on above: Performed By: #### B JOANNA, CREA #### [facility] [address] [place] [address] Dr. Soo Donnelly Hematocrit (Bld) [Volume fraction] 41.2 % Normal 36.0-48.0 [facility] Comment on above: Performed By: #### B UN, CREA #### [facility] [address] [place] [address] Dr. Soo Donnelly Hemoglobin (Bld) [Mass/Vol] 13.9 g/dL Normal 12.0-16.0 [facility] Comment on above: Performed By: #### B UN, CREA #### [facility] [address] [place] [address] Dr. Soo Donnelly IG # 0.04 10e3/ul Critically high 0.00-0.03 [facility] Comment on above: Performed By: #### B UN, CREA #### [facility] [address] [place] [address] Dr. Soo Donnelly IG % 0.4 % Normal 0.0-0.5 [facility] Comment on above: Performed By: #### B UN, CREA #### [facility] [address] [place] [address] Dr. Soo Donnelly LYMPH # 3.5 103/ul Normal 1.2-3.8 [facility] Comment on above: Performed By: #### B UN, CREA #### [facility] [address] [place] [address] Dr. Soo Donnelly Lymphocytes/100 WBC (Bld) 35.3 % Normal 20.5-60.0 [facility] Comment on above: Performed By: #### B UN, CREA #### [facility] [address] [place] [address] Dr. Soo Donnelly MANUAL DIFF REQ NO Normal [facility] Comment on above: Performed By: #### B UN, CREA #### [facility] [address] [place] [address] Dr. Soo Donnelly MCH (RBC) [Entitic mass] 31.7 pg Normal 26.7-34.0 [facility] Comment on above: Performed By: #### B UN, CREA #### [facility] [address] [place] [address] Dr. Soo Donnelly MCHC (RBC) [Mass/Vol] 33.7 g/dL Normal 29.9-35.2 [facility] Comment on above: Performed By: #### B UN, CREA #### [facility] [address] [place] [address] Dr. Soo Donnelly MCV (RBC) [Entitic vol] 94.1 fL Normal 81.0-99.0 [facility] Comment on above: Performed By: #### B UN, CREA #### [facility] [address] [place] [address] Dr. Soo Donnelly MONO # 0.5 103/ul Normal 0.3-0.8 [facility] Comment on above: Performed By: #### B UN, CREA #### [facility] [address] [place] [address] Dr. Soo Donnelly Monocytes/100 WBC (Bld) 5.4 % Normal 1.7-12.0 [facility] Comment on above: Performed By: #### B UN, CREA #### [facility] [address] [place] [address] Dr. Soo Donnelly NEUT # 5.6 103/ul Normal 1.4-6.5 [facility] Comment on above: Performed By: #### B UN, CREA #### [facility] [address] [place] [address] Dr. Soo Donnelly Neutrophils/100 WBC (Bld) 57.4 % Normal 43.0-75.0 [facility] Comment on above: Performed By: #### B UN, CREA #### [facility] [address] [place] [address] Dr. Soo Donnelly Platelet mean volume (Bld) [Entitic vol] 10.3 fL Normal 9.5-13.5 [facility] Comment on above: Performed By: #### B UN, CREA #### [facility] [address] [place] [address] Dr. Soo Donnelly PLT 235 103/ul Normal 150-450 [facility] Comment on above: Performed By: #### B UN, CREA #### [facility] [address] [address] [address] Soo Donnelly RBC 4.38 106/ul Normal 4.20-5.40 [facility] Comment on above: Performed By: #### B UN, CREA #### [facility] [address] [address] [address] Soo Donnelly WBC 9.8 103/ul Normal 4.0-11.0 [facility] Comment on above: Performed By: #### B UN, CREA #### [facility] [address] [address] [address] Soo Donnelly PREG QUANT HCGon 05-16-2022 HCG QUANT <1 Normal [facility] Comment on above: Performed By: #### U LG, CRP #### [facility] [address] [address] [address] Soo Donnelly HCG RANGE SEE BELOW Normal [facility] Comment on above: Result Comment: 5-50 0-1 WEEK 40-300 1-2 WEEKS 100-1,000 2-3 WEEKS 500-6,000 3-4 WEEKS 5,000-200,000 1-2 MONTHS 10,000-100,000 2-3 MONTHS 3,000-50,000 2ND TRIMESTER 1,000-50,000 3RD TRIMESTER Performed By: #### U LG, CRP #### [facility] [address] [place] [address] Dr. Soo Donnelly Covid-19 PCR (CVDTBH)on 05-01 SARS-CoV-2 (COVID-19) RNA [place]+probe Ql (Unsp spec) Not detected Normal NOT DETECTED [facility] Comment on above: Result Comment: This test is not yet approved or cleared by the [place] FDA. When there are no FDA-approved or cleared tests available, and other criteria are met, FDA can make tests available under an emergency access mechanism called an Emergency Use Authorization (EUA). The EUA for this test is supported by the [place] of Health and Human Service's (HHS's) declaration [...] SARS-CoV-2. Performed By: #### C VDTBH #### [facility] [address] [place] [address] Dr. Soo Donnelly TYPE AND SCREENon 05-13-2022 TYPE AND SCREEN Negative Normal [facility] Comment on above: Performed By: #### B UN, CREA #### [facility] [address] [place] [address] Dr. Soo Donnelly PAP ACOG PANEL 2: 30 to 65on 05-07-2022 . . Normal [facility] Comment on above: Result Comment: Perf ormed at: WB Performed By: #### [id number] #### [facility] [address] [place] [address] Dr. Soo Donnelly Age Gdln ACOG Testing 30-65 Normal [facility] Comment on above: Performed By: #### [id number] #### [facility] [address] [place] [address] Dr. Soo Donnelly DIAGNOSIS: Comment Normal [facility] Comment on above: Result Comment: NEGA TIVE FOR INTRAEPITHELIAL LESION OR MALIGNANCY. Performed at: WB Performed By: #### [id number] #### [facility] [address] [place] [address] Dr. Soo Donnelly HPV Aptima Negative Normal Negative [facility] Comment on above: Result Comment: This nucleic acid amplification test detects fourteen high-risk HPV types (16,18,31,33,35,39,45,51,52,56,58,59,66,68) without differentiation. Performed at: =G Performed By: #### [id number] #### [facility] [address] [place] [address] Dr. Soo Donnelly Methodology: Comment Normal [facility] Comment on above: Result Comment: This liquid based ThinPrep(R) pap test was screened with the use of an image guided system. Performed at: WB Performed By: #### [id number] #### [facility] [address] [place] [address] Dr. Soo Donnelly Note: Comment Normal [facility] Comment on above: Result Comment: The Pap smear is a screening test designed to aid in the detection of premalignant and malignant conditions of the uterine cervix. It is not a diagnostic procedure and should not be used as the sole means of detecting cervical cancer. Both false-positive and false-negative reports do occur. . Performed at: WB Performed By: #### [id number] #### [facility] [address] [place] [address] Dr. Soo Donnelly Performed by: Comment Normal [facility] Comment on above: Result Comment: Angel Rod, Manager Program (ASCP) Performed at: WB Performed By: #### [id number] #### [facility] [address] [place] [address] Dr. Soo Donnelly Specimen adequacy: Comment Normal [facility] Comment on above: Result Comment: Sati sfactory for evaluation. Endocervical and/or squamous metaplastic cells (endocervical component) are present. Performed at: WB Performed By: #### [id number] #### [facility] [address] [place] [address] Dr. Soo Donnelly ROSS by IFAon 02-21-2022 Antinuclear Antibodies, IFA Negative [facility] Comment on above: Result Comment: Nega tive <1:80 Borderline 1:80 Positive >1:80 ICAP nomenclature: [id number] For more information about Hep-2 cell patterns use ANApatterns.org, the official website for the International Consensus on Antinuclear Antibody (ROSS) Patterns (ICAP). Performed By: #### U LG, CRP #### [facility] [address] [place] [address] Dr. Soo Donnelly ROSS DIRECTon 03-23-2022 ROSS Direct Negative Normal Negative [facility] Comment on above: Performed By: #### A NAD #### [facility] [address] [place] [address] Dr. Soo Donnelly ANTISTREPTOLYSIN O AB (ASO)o n 02-20-2022 Antistreptolysin O Ab 115.3 IU/mL Normal 0.0-200.0 [facility] Comment on above: Performed By: #### B UN, CREA #### [facility] [address] [place] [address] Dr. Soo Donnelly C3 and C4 COMPLEMENTon 02-20 Complement C3, Serum 137 mg/dL Normal 82-167 [facility] Comment on above: Performed By: #### U LG, CRP #### [facility] [address] [place] [address] Dr. Soo Donnelly Complement C4, Serum 23 mg/dL Normal 12-38 [facility] Comment on above: Performed By: #### U LG, CRP #### [facility] [address] [place] [address] Dr. Soo Donnelly SLE PROFILE Aon 02-20-2022 Anti-DNA (DS) Ab Qn <1 Normal 0-9 [facility] Comment on above: Result Comment: Nega tive <5 Equivocal 5 - 9 Positive >9 Performed By: #### S YARI #### [facility] [address] [place] [address] Dr. Soo Donnelly Antichromatin Antibodies <0.2 Normal 0.0-0.9 [facility] Comment on above: Performed By: #### S YARI #### [facility] [address] [place] [address] Dr. Soo Donnelly RA Latex Turbid. <10.0 Normal <14.0 [facility] Comment on above: Performed By: #### S YARI #### [facility] [address] [place] [address] Dr. Soo Donnelly PROCUREMENT CLERK Antibodies <0.2 Normal 0.0-0.9 [facility] Comment on above: Performed By: #### S YARI #### [facility] [address] [place] [address] Dr. Soo Donnelly Sjogren's Anti-SS-A <0.2 Normal 0.0-0.9 [facility] Comment on above: Performed By: #### S YARI #### [facility] [address] [place] [address] Dr. Soo Donnelly Sjogren's Anti-SS-B <0.2 Normal 0.0-0.9 [facility] Comment on above: Performed By: #### S YARI #### [facility] [address] [place] [address] Dr. Soo Donnelly Spann Antibodies <0.2 Normal 0.0-0.9 [facility] Comment on above: Performed By: #### S YARI #### [facility] [address] [place] [address] Dr. Soo Donnelly CRPon 02-19-2022 CRP [Mass/Vol] mg/L Normal <=1.0 [facility] Comment on above: Performed By: #### U LG, CRP #### [facility] [address] [place] [id number] Dr. Soo Donnelly URIC ACID SERUMon 02-19-2022 Urate [Mass/Vol] 4.7 mg/dL Normal 2.5-6.2 [facility] Comment on above: Performed By: #### U LG, CRP #### [facility] [address] [place] [address] Dr. Soo Donnelly XR CSPINE MIN 4 [...] ABIGAIL SHEEHAN Date: 2022-02-19 16:33 Normal [facility] XR HAND DEAN MIN 3Von 022 [...] ABIGAIL SHEEHAN Date: 2022-02-19 16:28 Normal [facility] ASYMPTOMATIC COVID-19 ANTIGE Non 12-04-2021 EUA Statement SEE BELOW Normal [facility] Comment on above: Result Comment: This [...] sooner. Performed By: #### C VDAGA #### [facility] [address] [place] [address] Dr. Soo Donnelly SARS-CoV-2 (COVID-19) RNA NOLA+probe Ql (Unsp spec) Negative Normal NEGATIVE [facility] Comment on above: Result Comment: Nega tive results are presumptive. They do not preclude infection and should not be used as the sole basis for treatment decisions. Additional confirmatory testing by a molecular method should be considered. Performed By: #### C VDAGA #### [facility] [address] [place] [id number] [address] Soo Donnelyl Covid-19 PCR (CVDTB)on SARS-CoV-2 (COVID-19) RNA NOLA+probe Ql (Unsp spec) Not detected Normal NOT DETECTED [facility] Comment on above: Result Comment: This test is not yet approved or cleared by the [place] FDA. When there are no FDA-approved or cleared tests available, and other criteria are met, FDA can make tests available under an emergency access mechanism called an Emergency Use Authorization (EUA). The EUA for this test is supported by the [employer] Equipment Mechanic of Health and Human Service's (HHS's) declaration [...] Performed By: #### U LG, CRP #### [facility] [address] [place], [place] [id number] Dr. Soo Donnelly Vital Signs Date Time Vital Sign Value Performing Clinician Facility 11-01-2022 15:19-0500 Blood Pressure Location Ph[facility]ki [facility] 11-01-2022 15:19-0500 Diastolic blood pressure 80 mm[Hg] Nicola Simparel [facility] 11-01-2022 15:19-0500 Heart rate 72 /min Nicola Simparel [facility] 11-01-2022 15:19-0500 Respiratory rate 16 /min Nicola CANDELARIOMobspire [facility] 11-01-2022 15:19-0500 Systolic blood pressure 118 mm[Hg] Nicola NILL [facility] 10-01-2022 16:30-0400 Body height 170.18 cm Clarice Scally Other [place] Other 10-01-2022 16:30-0400 Body mass index (BMI) [Ratio] 32.84 kg/m2 Clarice Scally Other [place] Other 10-01-2022 16:30-0400 Body weight 95.12 kg Clarice Scally Other [place] Other 10-01-2022 16:30-0400 Diastolic blood pressure 82 mm[Hg] Clarice Scally Other [place] Other 10-01-2022 16:30-0400 Respiratory rate 18 /min Clarice Scally Other [place] Other 10-01-2022 16:30-0400 SaO2% (BldA) [Mass fraction] 97 % Clarice Scally Other [place] Other 10-01-2022 16:30-0400 Systolic blood pressure 116 mm[Hg] Clarice Scally Other [place] Other 08-28-2022 14:30-0400 Body height 170.18 cm Nahid Mccoy Other [place] Other 08-28-2022 14:30-0400 Body mass index (BMI) [Ratio] 34.55 kg/m2 Nahid Mccoy Other [place] Other 08-28-2022 14:30-0400 Body weight 100.06 kg Nahid Mccoy Other [place] Other 08-28-2022 14:30-0400 Diastolic blood pressure 82 mm[Hg] Nahid Mccoy Other [place] Other 08-28-2022 14:30-0400 Respiratory rate 18 /min Nahid Mccoy Other [place] Other 08-28-2022 14:30-0400 SaO2% (BldA) [Mass fraction] 97 % Nahid Mccoy Other [place] Other 08-28-2022 14:30-0400 Systolic blood pressure 121 mm[Hg] Nahid Mccoy Other [place] Other Encounters Encounter Date Encounter Type Care Provider Facility Start: 10-04-2024 End: 10-04-2024 ambulatory Hebert Jara MD Facility:[facility] Start: 09-27-2024 End: 09-27-2024 ambulatory DELGADO LIDIA Not Available Start: 09-27-2024 End: 09-27-2024 Bamboo flowsheet Delgado Lidia DO Work Phone: [facility] Start: 09-27-2024 End: 09-27-2024 Bamboo flowsheet Delgado Lidia DO Work Phone: [facility] Start: 09-20-2024 End: 09-20-2024 ambulatory [facility] Start: 09-09-2024 End: 09-09-2024 ambulatory Carol Webb PT Work Phone: [facility] Comment on above: Neck pain (Primary D x); Chronic bilateral low back pain with bilateral sciatica Start: 09-09-2024 End: 09-09-2024 Bamboo flowsheet Carol Webb PT Work Phone: [facility] Start: 09-09-2024 End: 09-09-2024 Bamboo flowsheet Carol Blandach PT Work Phone: [facility] Start: 08-30-2024 End: 08-30-2024 Departed Referred [facility] [address] Work Phone: Start: 08-30-2024 End: 08-30-2024 ambulatory NON STAFF [facility] Work Phone: Start: 04-05-2024 End: 04-05-2024 ambulatory DELGADO DIGGSZIO Not Available Start: 03-15-2024 End: 03-15-2024 Emergency department patient visit Nicola Kaelyn Neff Facility:[facility] Start: 10-22-2023 End: 10-22-2023 ambulatory JESSICA SANCHEZ Not Available Start: 08-15-2023 End: 08-15-2023 ambulatory NON STAFF [facility] Work Phone: Start: 08-15-2023 End: 08-15-2023 Departed [facility] [address] Work Phone: Start: 12-05-[address] SAMI MARINELLI Facility :[facility] Start: 11-09-2022 End: 11-10-[address] DOCTOR STEIN Facility:[facility] Start: 11-01-2022 End: 11-02-2022 ambulatory Nicola BUCHANAN Facility: [place] Start: 11-01-2022 End: 11-01-2022 Patient encounter procedure Nicola BUCHANAN [facility] [place] Start: 10-29-2022 End: 10-29-2022 ambulatory Clarice Hull Other [facility] Other Start: 10-29-2022 Telephone encounter [facility]ice [facility] Start: 10-14-2022 End: 10-14-2022 ambulatory Clarice Aldomegan Other [place] Other Start: 10-14-2022 Telephone encounter Clarice [facility] Start: 10-04-2022 ambulatory Nicola CANDELARIOHamida Facility:[facility] Start: 10-01-2022 (FCCCWMNF/U) Weight Management f/u Clarice Hull [facility] Start: 10-01-2022 End: 10-02-[address] LUZ ELNEA SAUCEDA [facility] Other Start: 09-19-2022 End: 09-19-2022 ambulatory Nahid Mccoy Other [place] Other Start: 09-19-2022 Telephone encounter Nahid [facility] Start: 09-18-2022 End: 09-18-[address] LUZ ELENA SAUCEDA Facility:[facility] Start: 09-12-2022 End: 09-13-[address] ABIGAIL SHEEHAN Facility:[facility] Start: 08-28-2022 End: 08-28-2022 ambulatory Nahid Mccoy Other [facility] Other Start: 08-28-2022 Nutrition therapy Nahid Mccoy [facility] Start: 07-22-2022 Encounter for genera l adult medical examination without abnormal findings DR SAMI MARINELLI [facility] Start: 07-19-2022 End: 07-20-[address] SAMI MARINELLI Facility:[facility] Start: 07-19-2022 End: 07-20-2022 Encounter for general adult medical examination without abnormal findings DR SAMI MARINELLI Facility:[facility] Start: 07-03-2022 End: 07-04-[address] SAMI MARINELIL Facility:[facility] Start: 06-10-2022 End: 06-11-[address] SAMI MARINELLI Facility:[facility] Start: 05-16-2022 End: 05-18-2022 Evaluation and management of inpatient DR DELGADO MURILLO Facility:[facility] Start: 05-16-2022 Encounter for preprocedural laboratory examination DR DELGADO MURILLO [facility] Start: 05-13-2022 End: 05-14-[address] DELGADO MURILLO Facility:[facility] Start: 05-13-2022 End: 05-14-2022 Encounter for preprocedural laboratory examination DR DELGADO MURILLO Facility:[facility] Start: 05-11-2022 Encounter for preprocedural cardiovascular examination DR DELGADO MURILLO [facility] Start: 05-08-2022 End: 05-09-[address] [...] Screening for malign ant neoplasm of colon [facility] Start: 10-23-2028 Screening for malign ant neoplasm of cervix [facility] Start: 11-27-2024 Screening for malign ant neoplasm of breast Mammogram [facility] Start: 11-22-2024 End: 11-22-2024 Patient encounter procedure 11/22/2024 1:00 PM EST Office Visit [facility] [address] [place] [address] Delgado Murillo DO [address], [place] [address] [facility] Start: 09-27-2024 End: 09-27-2024 Patient encounter procedure 09/27/2024 3:10 PM EDT Office Visit [facility] [address] [place] [address] Delgado Murillo DO [address] [facility] [place] [address] Arrived [facility] Comment on above: Arrived Start: 09-09-2024 End: 09-09-2024 ambulatory 09/09/2024 4:00 PM EDT Evaluation [facility] [address] [place] [address] Carol Webb, PT [address] [place] [address] Arrived [facility] Comment on above: Arrived Start: 08-01-2024 Influenza vaccination Influenza Vacc ine (#1) [facility] Start: 1975 Screening for malign ant neoplasm of colon [facility] Immunizations Immunization Date Immunization Notes Care Provider Fa cility NEGATED: Highlighted row has not occurred!11-01-2022 influenza virus vaccine, unspecified formulation Nicola BUCHANAN [facility] [place] Payers Date Payer Category Payer Self-pay [id number] 2023 Private Health Insurance [employer] [id number] 2023 Unknown [id number]. 1.13.693.2. [id number] 1975 Unknown [id number] 2.16.840.1.141848.3.579.2. 727 1975 Unknown [id number] 2.16.840.1.490442.3.579.2. 593 1975 Unknown [id number] 2.16.840.1.402257.3.579.2. 593 1976 Unknown [id number] 2.16.840.1.998571.3.579.2. 593 1976 Unknown [id number] 2.16.840.1.636675.3.579.2. 59 1976 Unknown [id number] 2.16.840.1.264694.3.579.2. 59 1976 Unknown [id number] 2.16.840.1.933125.3.579.2 59 1976 Unknown [id number] 2.16.840.1.404772.3.579.2. 59 1976 Unknown [id number] 2.16.840.1.748821.3.579.2. 59 1976 Unknown [id number] 2.16.840.1.870780.3.579.2. 59 1976 Unknown [id number] 2.16.840.1.043800.3.579.2. 593 1976 Unknown [id number] 2.16.840.1.931715.3.579.2. 59 1976 Unknown [id number] 2.16.840.1.472392.3.579.2. 593 1976 Unknown [id number] 2.16.840.1.017319.3.579.2. 593 1976 Unknown [id number] 2.16.840.1.306922.3.579.2 59 1976 Unknown [id number] 2.16.840.1.110706.3.579.2. 718 1976 Unknown [id number] 2.16.840.1.838705.3.579.2. 9 1976 Unknown [id number] 2.16.840.1.749546.3.579.2. 9 1976 Unknown [id number] 2.16.840.1.626958.3.579.2. 9 1976 Unknown [id number] 2.16.840.1.142278.3.579.2. 9 1976 Unknown [id number] 2.16.840.1.465443.3.579.2. 196 1976 Unknown [id number] 2.16.840.1.887746.3.579.2. 196 1959 Self-pay [id number] 1959 Unknown [id number] 2.16.840.1.487512.19 Unknown [id number] 2.16.840.1.810092.3.579.2. 531 Social History Date Type Detail Facility Unknown if ever smoked [place] Other Start: 06-25-2023 End: 10-20-2023 Sex Assigned At [facility] Start: 11-01-2022 Tobacco smoking status Ex-smoker (fi nding) [facility] Tobacco smoking status Former sm okeless tobacco user, quit more than 30 days ago [facility] Start: 1975 Sex Assigned At Female F [facility] Start: 06-25-2023 [facility] History of [...] 4 times a month; Caffeine: 1-2 cups/day [facility] Start: 1975 Sex assigned at Not on file N [facility] Functional Status Date Assessment Result Facility 11-01-2022 Functional Status N/A General Delgado yaa [facility] Clinical Notes 05-16-2022 to 09-09-2024 Carol [place] Miguel Angel, PT - 09/09/2024 4:00 PM EDT Note [...] No resulting surgeries. 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 Also notes poor balance with no diagnosed [...] sign below. Date: documented in this encounter [facility] 03-15-2024 Note Education Materials Cardiovascular Hypertension, Adult [...] Keep all follow-up visits. Medicines ? Take yzwp-ous-zsyyknw and prescription medicines only as told by [...] work harder to (more content not included)... [facility] 11-25-2022 Note Chief Complaint consultation for umbilical [...] - Denies A (more content not included)... [facility] Comment on above: Result Comment: Elec [...] was counseling done by myself, Ann ANGLIN. [facility] Other 09-28-2022 Evaluation note* Encounter Date Diagnosis Assessment Notes Treatment Notes Treatment Clinical Notes Aug, Abnormal weight gain (ICD-10 - R63.5) Aug, Prediabetes (ICD-10 - R73.03) Aug, Mixed hyperlipidemia (ICD-10 - E78.2) Aug, Hypertension (ICD-10 - I10) Aug, Obstructive sleep apnea (ICD-10 - G47.33) Aug, GERD (gastroesophageal reflux disease) (ICD-10 - K21.9) Aug, Metabolic syndrome X (ICD-10 - E88.81) [facility] Other 06-16-2022 NoteDISCHARGE SUMMARY DISCHARGE DATE: 05/18/2022 [...] pain free and no longer on narcotics. [facility] Signed and Approved by: DR DELGADO MURILLO . 05/20/2022 07:51:00[id number] NoteThe [place], [place] NAME: HORACIO PUGH Tommie DATE OF : MEDICAL REC#: [id number] SCENIC ARTIST: 1602 LORENA LEE ADMIT DATE: 05/16/2022 11:05:00 RADIO ENGINEER DATE: 05/17/2022 21:20 DICTATING PHYSICIAN: DELGADO MURILLO DICTATION DATE: 05/16/2022 15:02 OP Note OPERATION DATE: 05/16/2022 PROCEDURE: Supracervical hysterectomy with left salpingo-oophorectomy with right salpingectomy and right ovarian cystotomy of approximately 3 cm cyst. SURGEON: Delgado Murillo D.O. CARPENTER MINE: SHUKRI Bailon URINE OUTPUT: Yellow and clear. [...] DR DELGADO MURILLO . 05/23/2022 10:30:00[facility] note No data available for this section [facility] Evaluation noteNo InformationNort [facility] Other Evaluation noteNo assessment information available [facility] Work Phone: Evaluation note* Diagnosis [...] Tummy Tuck 2008 Surgical History lipoma removed 2005 Surgical History TMJ surgery Hospitalization History see above [place] [facility] Narrative - Reported* Type Description Date [...] see above Hospitalization History ER-abd . pain [facility] 09/18/22 [place] Other Hospital Discharge instructions No data available [...] [place] PHYS THERAPY EVALUATION Edwige Magaña MD [address] [place] [address] Carol Webb, PT [address] [facility] [place] [address] Referral ID Status Reason Start Date Expiration Date V isits Requested Visits Authorized [id number] Authorized 09/02/2024 03/01/2025 40 40 Patient Care team informatio n (unrecognized section and content) Team Status: Active Member Role Status Dates NON STAFF Primary Care Provider Active Team Status: Inactive Member Role Status Dates NON STAFF Primary Care Provider Active Dedrick Fuller DO [facility] Attending Provider Active Team Status: Inactive Member Role Status Dates NON STAFF Primary Care Provider Active Start: August 30, 2024 End: August 30, 2024 Dedrick Fuller - [facility] DO [facility] Attending Provider Active Start: August 30, 2024 End: August 30, 2024 [employer] Credit Clerk Relationship Specialty Start Date End Date Sami Marinelli MD [address] [place] [address] PCP - General Family Medicine 06/26/23 [employer] Credit Clerk Relationship Specialty Start Date End Date Sami Marinelli MD [address] [place] [address] PCP - General Family Medicine 06/26/23 INFORMATION SOURCE (unrecogn ized section and content) DATE CREATED AUTHOR 11/26/2022 [facility] DATE CREATED AUTHOR AUTHOR'S ORGANIZ ATION 12/03/2022 [facility] DATE CREATED AUTHOR AUTHOR'S ORGANIZ ATION 03/21/2024 [facility] DATE CREATED AUTHOR AUTHOR'S ORGANIZ ATION 08/31/2024 [facility] DATE CREATED AUTHOR AUTHOR'S ORGANIZ ATION 09/28/2024 [facility] EPIC DATE CREATED AUTHOR AUTHOR'S ORGANIZ ATION 10/09/2024 [facility] Goals (unrecognized section and content) Goals may [...] BE BASED ON THE PRIMARY CLINICAL RECORDS. [facility] [employer] [facility]. provides no warranty or guarantee of the accuracy or completeness of information in this document.
[2024-10-09 13:40] LABS: Internal Control Within Normal Limits; Occult Blood Positive
== END 2024-10-09 12:22 | disposition home or self-care (01) ==
LOC: LAB 12:21
PROVIDERS: PCP Family Medicine; Visit Provider Family Medicine
DX: N93.8 Other specified abnormal uterine and vaginal bleeding (principal); I10 Essential (primary) hypertension; R73.03 Prediabetes; R53.83 Other fatigue; R73.09 Other abnormal glucose; Z12.12 Encounter for screening for malignant neoplasm of rectum; E03.9 Hypothyroidism, unspecified
CPT/HCPCS: G0328

== ENCOUNTER 2024-10-13 06:59 | Outpatient (OUT) | payer OTHER, SELFPAY ==
--- NOTE | 2024-10-13 07:01 | US_ITS ---
The [address] [address] Patient Name: HORACIO KEATING MRN: [id number] date: 1975 Sex: F Assigned Patient Location: US Current Patient Location: Accession/Order Number: [id number] Exam Date: 10/13/2024 07:02 Report Date: 10/14/2024 04:43 At the request of: SAMI MCCARTY Procedure: US right upper quadrant EXAMINATION: US right upper quadrant HISTORY: Elevated liver enzymes COMPARISON: No relevant comparison available. TECHNIQUE: Transabdominal evaluation of the right upper quadrant. FINDINGS: LIVER: Increased echogenicity suggestive of fatty infiltration.. Color Doppler demonstrates patent hepatic veins. PORTAL VEIN: Duplex Doppler demonstrates normal hepatopetal flow pattern with flow velocity averaging 28 cm/s. GALLBLADDER: Cholecystectomy. Negative sonographic Mendez's sign. BILIARY: No abnormal dilation or stones. Common bile duct diameter is within normal limits. PANCREAS: No visible mass, abnormal atrophy, or duct dilation. KIDNEY: Benign-appearing 1.6 cm cyst projecting from superior pole. No appreciable stones, mass, or hydronephrosis. Size: 12.6 x 4.6 x 4.7 cm US/US right upper quadrant IMPRESSION: 1. Fatty infiltration of liver. 2. Cholecystectomy. 3. Benign-appearing right renal cyst. Electronically authenticated by: LUZ ELENA SAUCEDA Date: 10/14/2024 04:43
--- OUTSIDE RECORDS SUMMARY | 2024-10-13 07:02 | XMS_ITS | CCD ---
Author Organization [facility] Care Team Providers Care Mend Worker Name Role Phone Nahid Mccoy Unavailable Clarice Hull Unavailable Smai Marinelli Primary Care Physician Nicola BUCHANAN Attending [...] Care Provider UnavailDO Dedrick Alfaro Attending Provider [phone] Nicola Neff Attending Unavailab Nicola Anderson Admitting Unavailab SAMI Matos Primary Care Unavailable NON STAFF Primary Care Provider Unavailsalome Fuller [facility] Attending Provider Alina [facility] NON STAFF Primary Care Unavailable Sami Marinelli MD Primary Care Provider [phone] JESSICA SANCHEZ Attending Unavailable DELGADO MURILLO Attending Unavailable CAROL WEBB Attending Unavailable EDWIGE MAGAÑA Referring Unavailable DELGADO MURILLO Attending Unavailable Marek BURK, Hebert Rock Attending Unavailable Marek BURK, Hebert Rock Attending Unavailable Allergies Allergy Classification Reported Allergen(s) Allergy Type Date of Onset Reaction(s) Facility (7 sources) NITROFURANTOIN, MACROCRYSTALS / Nitrofurantoin, Monohydrate; 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: [nitrofurantoin] Drug Allergy Neck swelling (finding) [facility] (1 source) Albuterol Drug Allergy [facility] Comment on above: NEED TO CUT DOWN ADR ENALIN TO PREVENT SEIZURES (2 sources) Bee/Wasp/Ant venom; 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: [Bee Stings] Allergy to substance Nausea, Swelling [facility] (1 source) PECANS 1 Food allergy [facility] Comment on above: AIRWAY CONSTRICTION (5 sources) Albuterol; 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: [albuterol] Drug Allergy 06-26-20 23 Other [facility] (1 source) Egg; 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: [Eggs] Food allergy (disorder) [facility] (4 sources) Nitrofurantoin; 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: [Macrobid] Drug Allergy 05-02-20 12 [facility] (1 source) PECANS; 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: [PECANS] Food allergy (disorder) [facility] (2 sources) bee venom Drug allergy (disorder) 06-09-20 15 [facility] (2 sources) egg extract Drug Allergy 06-09-20 15 [facility] (2 sources) pecan pollen extract Drug Allergy [facility] (2 sources) tree nut, unspecified Drug allergy (disorder) 06-09-20 15 [facility] (1 source) Nitrofurantoin Drug Allergy 10-01-20 [facility] (3 sources) Honey bee venom Allergy to substance 04-05-20 24 [facility] (3 sources) Nitrofurantoin Drug Allergy 05-01-20 18 Swelling [facility] (3 sources) Nitrofurantoin Drug Allergy 04-05-20 24 [facility] (3 sources) Egg-Derived Products Drug Allergy 04-05-20 24 [facility] (3 sources) Other Propensity to adverse reactions 05-13-20 05 [facility] Medications Current Medications Medication Drug Class(es) Dates [...] Active Start: 10-30-2022 take 1 tablet by [facility] once daily meloxicam 15 mg Tab 15 [...] 10/30/22 Status: Ordered take 1 capsule by [facility] every twenty-four hours Omeprazole 40 MG [...] 2 Chronic Other aftercare (1 source) 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; 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: [[employer]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] Onset: 2 Episodic Other [...] MDRD (S/P/Bld) [Vol rate/Area] mL/min/{1.73_m2} Normal [facility] Comment on above: Performed By: #### L IPID, BMP #### [facility] [address] [place] [address] [place] Calcium [Mass/volume] in Ser um or PlasmaOrdered By: Dedrick Fuller on 08-30-2024 Calcium [Mass/Vol] 9.9 mg/dL Normal 8.6-10.3 [facility] Comment on above: Performed By: #### L IPID, BMP #### [facility] [address] [place] [id number] [place] Carbon dioxide, total [Moles /volume] in Serum or PlasmaOrdered By: Dedrick Fuller on 08-30-2024 CO2 [Moles/Vol] 26.6 mmol/L Normal 21.0-31.0 [facility] Comment on above: Performed By: #### L IPID, BMP #### [facility] [address] [place] [id number] [place] Chloride [Moles/volume] in S altagracia or PlasmaOrdered By: Dedrick Fuller on 08-30-2024 Chloride [Moles/Vol] 104 mmol/L Normal 98-107 [facility] Comment on above: Performed By: #### L IPID, BMP #### [facility] [address] [place] [address] [place] Cholesterol [Mass/volume] in Serum or PlasmaOrdered By: Dedrick Fuller on 08-30-2024 Cholesterol [Mass/Vol] 218 mg/dL High 140-200 [facility] Comment on above: Chol less than 200 m g/dl low riskChol 201-239 mg/dl borderline riskChol 240 mg/dl and greater high risk Result Comment: Chol less than 200 mg/dl low risk Chol 201-239 mg/dl borderline risk Chol 240 mg/dl and greater high risk Performed By: #### L IPID, BMP #### [facility] [address] Cholesterol in LDL Calc [Mas s/Vol]Ordered By: Dedrick Fuller on 08-30-2024 Cholesterol in LDL [Mass/Vol] 134 mg/dL High 0-100 [facility] Comment on above: LDL ATP III CLASSIFI CATIONLDL less than 100 mg/dL OptimalLDL 100-129 mg/dL Near or above optimalLDL 130-159 mg/dL Borderline highLDL 160-189 mg/dL HighLDL greater than 189 mg/dL Very high Cholesterol in VLDL Calc [Ma ss/Vol]Ordered By: Dderick Fuller on 08-30-2024 Cholesterol in VLDL [Mass/Vol] 46 mg/dL [facility] Creatinine [Mass/volume] in Serum or PlasmaOrdered By: Dedrick Fuller on 08-30-2024 Creatinine [Mass/Vol] 0.75 mg/dL Normal 0.60-1.20 [facility] Comment on above: Performed By: #### L IPID, BMP #### [facility] [address] [place] [address] [place] Glucose [Mass/volume] in Ser um or PlasmaOrdered By: Dedrick Fuller on 08-30-2024 Glucose [Mass/Vol] 95 mg/dL Normal 70-100 [facility] Comment on above: ADA recommended refe rence rangeRandom Glucose Reference Range is dependent on time and content of last meal. Glucose of more than 200 mg/dL in a nonstressed, ambulatory subject supports the diagnosis of Diabetes Mellitus. Result Comment: [place] Glucose Reference Range is dependent on time and content of last meal. Glucose of more than 200 mg/dL in a nonstressed, ambulatory subject supports the diagnosis of Diabetes Mellitus. ADA recommended reference range Performed By: #### L IPID, BMP #### [address] Lipid Panelon 08-30-2024 LDL Cholesterol,Calculated 134 mg/dL High 0-100 [facility] Comment on above: Result Comment: LDL ATP III CLASSIFICATION LDL less than 100 mg/dL Optimal LDL 100-129 mg/dL Near or above optimal LDL 130-159 mg/dL Borderline high LDL 160-189 mg/dL High LDL greater than 189 mg/dL Very high Performed By: #### L IPID, BMP #### [address] Triglyceride w/Reflex 231 mg/dL High 0-149 [facility] Comment on above: Result Comment: TRIG ATP III CLASSIFICATION TRIG less than 150 mg/dL Normal TRIG 150-199 mg/dL Borderline high TRIG 200-500 mg/dL High TRIG greater than 500 mg/dL Very high Standard traceable to the Center for Disease Conrtrol and Prevention (CDC) test method. Performed By: #### L IPID, BMP #### [address] VLDL CHOLESTEROL 46 mg/dL Normal [facility] Comment on above: Performed By: #### L IPID, BMP #### [address] No Panel InformationOrdered By: Dedrick Fuller on 08-30-2024 Estimated GFR (CKD-EPI) > 60.0 mL/Min [facility] Creatinine Clearance (Chem N/A [facility] Potassium [Moles/volume] in Serum or PlasmaOrdered By: Dedrick Fuller on 08-30-2024 Potassium [Moles/Vol] 4.1 mmol/L Normal 3.5-5.1 [facility] Comment on above: Performed By: #### L IPID, BMP #### [facility] [address] [place] [address] Serum or plasma anion gap de terminationOrdered By: Dedrick Fuller on 08-30-2024 Anion gap [Moles/Vol] 13.5 mmol/L Normal 6.0-15.0 [facility] Comment on above: Performed By: #### L IPID, BMP #### [facility] [address] [place] [address] Serum or plasma high density lipoprotein (HDL) cholesterol measurementOrdered By: Dedrick Fuller on 08-30-2024 Cholesterol in HDL [Mass/Vol] 38 mg/dL Normal 23-92 [facility] Comment on above: HDL CHOL ATP-III CLA SSIFICATION Cardiovascular RiskHDL > or equal to 60 mg/dL LOWHDL < 40 mg/dL HIGH Result Comment: HDL CHOL ATP-III CLASSIFICATION Cardiovascular Risk HDL > or equal to 60 mg/dL LOW HDL < 40 mg/dL HIGH Performed By: #### L IPID, BMP #### [facility] [address] [place] [address] Serum or plasma total choles terol/high density lipoprotein (HDL) cholesterol mass ratOrdered By: Dedrick Fuller on 08-30-2024 Cholesterol.total/Mirta sterol in HDL [Mass ratio] 5.7 {ratio} Normal <5.0 [facility] Comment on above: Result Comment: PERF ORMED BY: [place] [address] PATHOLOGIST DESIGN DRAFTER IRMA MARCELO M.D. Performed By: #### L IPID, BMP #### [facility] [address] [place] [address] [place] Sodium [Moles/volume] in Ser um or PlasmaOrdered By: Dedrick Fuller on 08-30-2024 Sodium [Moles/Vol] 140 mmol/L Normal 136-145 [facility] Comment on above: Performed By: #### L IPID, BMP #### [facility] [address] [place] [address] Triglyceride [Mass/volume] i n Serum or PlasmaOrdered By: Dedrick Fuller on 08-30-2024 Triglyceride [Mass/Vol] 231 mg/dL High 0-149 [facility] Comment on above: TRIG ATP III CLASSIF ICATIONTRIG less than 150 mg/dL NormalTRIG 150-199 mg/dL Borderline highTRIG 200-500 mg/dL High TRIG greater than 500 mg/dL Very highStandard traceable to the Center for Disease Conrtrol and Prevention (CDC) test method. Urea nitrogen [Mass/volume] in Serum or PlasmaOrdered By: Dedrick Fuller on 08-30-2024 Urea nitrogen [Mass/Vol] 18 mg/dL Normal 7-25 [facility] Comment on above: Performed By: #### L IPID, BMP #### [address] Coding Summaryon 03-19-2024 Coding Summary HTMLBase 64 ZqikzmsxYDy6kRe+PGhlY WQ+BP9EKVJhF90jxOFawL 4vE9SVWKjVBzfiQJYLQMv LBgGbdqEbIJ3zgDPmJOSd IC8+SS2zZXRrGdmdoTOej 1F0jUG2P25ddt0qSJrulQ B2DRGaHmUoflqkx6waiHm 6IDcuNmluOyBt VPVznU90GDJ6pE16Cs26v EHxmQEzf2lmaEx8ViMqJY JbOSO5wUfxXHibo1CzJVG jO32gsNQfj7F4 FTJiaVwhvWYhTdHhzOC2u C6aFPigejhvh1eoztlbKx z4ks92eUKzs4I6iEJ9H0R jjyT2ZDXncDOl QclyfLMMgR0iqvyks8nsx tguJxPqZXOnKVv4LQc8RM DksYbvBlTjFG00FZS9LWE tewZqG4RuIDMo lZsnZlB3b7Y6Jw2EP9FKV ploG4HVMYABHVdvdSJ+PC 70ct54B8MgEnojTfr1NCA xBOP0bTI2vA9u LHNsKSmpk5Y3oRV8L5Uyp gAshz7dn7iaGURhQPkoY9 7woSYcv9P2XEXiaOM5TED ldYnxWpKuaD49 Oyc+KNXqwQbju9JqFenga 1ign8ciyKd6ZdhdMZPfwo VgsDliTTJ3r7VfKo4bQRJ jnFC5pJV3lT0x GuZbXcU9UKvzF981UvGbd LVxFjdsK35jC6JlrGC+PH YdJli5LCCxcUxtOM0yR9E hZGRpbmctbGVm rJebJX8wVOOoknspIJVnl Q2pUOEnH8j4VoMwJsW0UF hgE1PbAUNozyupAm68qE1 sGjHyUyX9TTay D7YmjyQ7BYMxfOPxSRehK QF2V39yk8F9KMSjZWWyGA V2jMQ6nP9cdLudctmsxLI mdDsgdmVydGlj ZSunBYwhZ453SVXhuNuwH kNvZGluZyBEYXRlOiAgMD QvMTkvMjAyNDwvdGQ+PHR tRBI7gAfvTIBc wAGhFCdpKu2fyIlflQijQ T0eIIVbhikeIANxzC6cJA CzmXEdjGthYH2lJJSpztr zy994OuLhGDM0 DBNzjJErW9QlaF8pUwOuE OQpQDWnV2ZenMYfSQvbL5 89WTveFcF0UCZyxgKsR5D sLWFsaWduOiB0 h4F5Rg8Pi4HvtglsF1Qjn LUvOtBzUdxuQQa7G8TqIv wvdHI+HG99KDWxKL59ZUn 9UAA0xSvoERkj IZHlJ5HwzG7zFlGxJVDmK GRkOyc+PHRhYmxlIHdpZH RoPScxMDAlJyBzdHlsZT0 ePf0aZTWyIMCs sSfdtCYfWeIzl1mkOKRgE LqlSB9psJkyR2TlqAK8SY Ogx6p3Ko94W24aE6YszXU +DVVvtZW0pFT1 yA6zBhVlBjS3MUjcV337R dTjcYOeIikzf0dvv5larW v0NsR1PPEibxBmeLgsATO 2w3MrCs44Q47f IHdpZHRoPSIxNSUiIHZhb Kdkuc3mlK6gAt8+PGNvbC V6aUH1kB5qApYgKcV8JEr fT596FvGjzPQb Dbkpv5nto7xziBf3RfMdA DTzoiTemIpxWIP4e3FrXj 10T1PawQbom6QlNgl5az2 5kUEuw2P8sAZ9 H4OqHBZewuijhAAufJosS E4tFFXgxayxXVSruI6pJQ AzP4i4RyRuArN6LBvtJ4L yssF4BHJxeQAr KXVuhJWKdA3hyruvn2amp ltgZtKeZGLhGMa9CNv5LF UvnEquHyJjKKE7SrY5NGT 0uVNgqL1rcMkx woaduH7kMog+SIY3kWMid BODUD2tAiogzQS+PHRkIH V8uTcyKQsgPPKfiT6tIAX hN1y1HtGwVkG0 MLkeD3HyntZ0PCTupARaE LKsaQFFyR5guzmwo6sbwm idSvKgANQcAKx0WVu0MPM saWduOiBsZWZ0 TpY9DBN5yMYxsJ7iqTvcf wpcxZ6dLde+QmlydGggRG Q9EFl6D7MeJwy2ULQgwFb eTY3ziLVhKYmh Cy2ttYtzeEelJV1vGINoc qtek549SmNpj5dkKVObrH GqEGhjMFK7S90yg9D4BFS aPFPrCYJ3bDY5 yU1uiDdoyeuxhMHecHoln bLhzAhkJNyqTGxhH042ON RpyViwUpWeGTh8X6GdRec 5KIPqoVhfHD3r aSTvUCdqBq2hmXkigSivH M1nSFSacrhyk500OmLur9 bfTHIrbKGuSUjrVAH2J56 ks0G4KTGrTLIy BFI1jYS5eK3whJswsrjrk GVmdDsgdmVydGljYWwtYW eyM327FCAzpSxvLiFxoTn 2W6HdMqv9FPHk nCfjZW4umSItNZclNt2yp TtveFjbOO2mZPPkcbnzx0 23NdEsw9gvLRAexCVaHQh oLEJ0Z65kz2P6 DBVnGCIdKUL3dWD1sD5kh GlnbjogbGVmdDsgdmVydG xpKKayEIsrB481SSPlyYt nPlBhdGllbnQg NUrrLSo1L6SaWujbhIN+P E68LMWtXL34tFPosPPet6 khfOu1GsHqLZQsYNL7iZl sWCfvd4LwHOEw N09zaDDwi6L8AODosMfxr DTsHuHfhDJ3oA1uRSlwma olo9didizkUkfem8vdjd0 8uJ32X93gEHud ZHRoPSIzMCUiIHZhbGlnb i6gcM8zJq1+DMPqlPK7vN S9tW5vGQNkHuW3RChhY27 9InRvcCIvPjxj q1ods7jvhWq3TiD3FKFgh pDwwBylAWH2t5UcGh69X3 9sIHdpZHRoPSIyMCUiIHZ tcGqmco9qmN7e Ii8+AZBptFO2tFJ9iG3bH aHyIzU4YNltR598ScXjaM YwKstyL47kG0LksYC+PHR nXiy4HLFayNjm WI0thOVyFNlkNs4hXGT3J nOxCiXoVLwmQ6RxFDQrkz efzztjyDP7NCLtWOPftX4 9Cd6oaZmnVNXw sMZSuP3cbgwwl9rxoehvL nVmGKDlFTr0VNe3YQVyzB qmRsRgCFR2IvY0DPE8fYB kbV1kaXurgjqo fX9eR7SmNWPowhjgZp55i X6mFjDlEvI9WKpkStr+Q0 6ZVRHUPFZEEJEXQI0OAY1 MX55QPClwsRN+ QICmKPO8aDfePQfkXHFgk T4lJSEeP9b8IlFiDoA8ZV qaG2ZwFMPkwvwnQh18dO5 mViIoVlF2MRgb I6SrhmQ4KYCvaKChYSshK VP2X43il4T8UOAhVJQrXC C5zBC7fA0ddXfxqmocsHF mdDsgdmVydGlj LMuvXPfjO660YZPhgDvqG qI1SfA5KpW7YwV5P8JbFu m0CSOqcKcfJY9iiSPpBEf zYa1zjWcmvLyu VE6iDEWvwjtbLHPtxB1vL HJxgUYcwGtaDZ5rTTFbsw kon923ShAaOGX8LPUdwDP vM8NroW3tIiSe FAVoUZAkK6OnxTLcYLxjK 386AEvxFkU2FOSuckByM1 CtFCJdiRioOeW9r7O9Yy1 0NyBZZWFyczwv dGQ+BXJmTNE8aDxoQRgmX WAixI5eRAYpD4d6BzVyAn E4XLidB9FqJGKphzntKi1 7rU5sLmKuFmC4 XVejN1XdruP4RCYczLUqQ AjaWJK7T16bb7F3TUQnQJ BzWED1dGO4mU8qnAzgrsb gbGVmdDsgdmVy qQwoCBymQQuiE535UMOqe DsnPkZFTUFMRTwvdGQ+PH CmMOL9dFubCYymQATnrX4 xJTSwZ1e5PjNf VcK2JThmF0FsSJEaspjlC i06cN2vVoSpBfK9FVnfL6 XfmcG8ZIGntFHvMYhkHUQ 2Z34cg3O4PBUr HIBjWNU2yGA2nG5stJyis jogbGVmdDsgdmVydGljYW wtJIivS405XYWxiKirYqU jDQGrGI1lvRjt dGQ+MZ39rr98C0UeGuatK uh3EDSuPBV0oOT2yF9qIY QeEErkx4X1aBC1N1VdooM nkb3ku1ukUKCw LApaA36irLXiw0F4KYGay BM1OSAnkJbeZjVmvW99Lg c+KQPdhFnuo6IcUbnvt2c yc6omhGi1VjFz HMXuhiSguSkyHHN1a0HhX x57E63oSSepVHEoAWIqBS ZpJHYexDiyie4juO3mFr8 +WQGtlNM9bSU7 wJ7hDvOxLfG3SMkfU436S tWagUYjGphha5yjd3gwmS y0UxHmWVUkloPtmNvtEPB 2w4PcZz33L7Yh fYduq2McSjm7vq13mGBjw 7T9ySC1X6RjNMKlfnrkqM ClzRgqCZ2kQBLcckzmGLG fuJ9gLCSzO0h3 TxJxOsZ7THmyV0NlgfB5E ZZbfSIjELZejXZNkW9fkl num0zgreujDnRxECZcONt 5YFw3HTVfoJfy BgXmDNM8KuL5NYN9bYOaa R8ooUgohqlfeC3hTsx+UG q9l8piuEGqKV9knYU6VY3 8IB91wAUwc9K7 ePL0R5RoHRBdqjzqtdiwt TF4ENHyWJNjlT35Ac3yeD rbMp2lJYUaCGD6LVXpbXM uH7PaaI6bVcCy UONwCQSjD0CluBYzUFxyD 990SWqzXrH1ZZBpjgPeU4 ZaILWlkDywDkS1y4Y1Gu0 CHG82MJ14XR37 xHCph7K4bPJ2X6VxWNCib cfjyockpJT4TJXsGWVenU 47Oh6ekRxgVa4jFROpWGA 9UYIloVJbL8Gn sM9yZsWpFZIvCYKeD9Lyh HLjRSupR060CViqCiD6GJ KrlrCjI3EwSIGvpFotYjN 6o7Y2Rw1LEq60 BK65QS29iTDrs4A5dYZ8P 5AoNYTkwvoyvtyqnJP0KL DiXWDdsS60Cc9jaLguGn8 tVUNcMAC7IZJl cXBuG1ChtU5xNeGwVTMtO OJiU8AsiSHcLZyiK715EX soOuQ0VJUvdjRmW2RyFGF bzOoiJkO8d1G9 Va4EXFkojgu3P3WuSgzxi HI+PD23DOEdEI41nWGbtO Mrs7egoCu3DrNdZMZsWAS 4rRiuCAnbk7Hc ZXI (more content not included)... Normal [facility] Ambulance Noteon 03-17-2024 Ambulance Note [id number]#1.00 OTGTIFF Normal [facility] C Urineon 03-17-2024 C Urine Urine Culture ordere d as a result of parameters set on specific urine dip and urine microsopic results. >100,000 cfu/ml Lactobacillus species Normal vaginal oleg isolated 10,000 cfu/ml Corynebacterium species (DIPTHEROID) No YOLANDE performed on this organism No pathogens isolated [facility] Comment on above: Performed By: #### 5 [id number], [id number] ####[facility] (DEFAULT)[address] [place] [address] .Auto Diff 1on 03-15-2024 Auto Swain % 3 % Normal 12-12 [facility] Comment on above: Performed By: #### 5 [id number], [id number], [id number], [id number], [id number], [id number], [id number] #### [facility] (DEFAULT) [address] [place] [address] Baso Abs# 0.1 x10 Normal 0.0-0.2 [facility] Comment on above: Performed By: #### 5 [id number], [id number], [id number], [id number], [id number], 1223515, 7408980 #### [facility] (DEFAULT) [address] [place] [address] Basophils/100 WBC (Bld) 0.7 % Normal 0.2-2.0 [facility] Comment on above: Performed By: #### 5 [id number], [id number], [id number], [id number], [id number], 9895115, 8124624 #### [facility] (DEFAULT) [address] [place] [address] Eos Abs# 0.1 x10 Normal 0.0-0.4 [facility] Comment on above: Performed By: #### 5 [id number], [id number], [id number], [id number], [id number], 5532523, 9868053 #### [facility] (DEFAULT) [address] [place] [address] Eosinophils/100 WBC (Bld) 0.7 % Low 0.9-4.0 [facility] Comment on above: Performed By: #### 5 [id number], [id number], [id number], [id number], [id number], 9425154, 5146395 #### [facility] (DEFAULT) [address] [place] [address] Lymph Abs# 2.2 x10 Normal 1.3-2.9 [facility] Comment on above: Performed By: #### 5 [id number], [id number], [id number], 68529531, [id number], 1861371, 8498374 #### [facility] (DEFAULT) [address] [place] [address] Lymphocytes/100 WBC (Bld) 14 % Normal 14-48 [facility] Comment on above: Performed By: #### 5 [id number], [id number], [id number], 57460439, 1025547051, 2178922, 2082583 #### [facility] (DEFAULT) [address] [place] [address] Swain Abs# 0.5 x10 Normal 0.0-0.8 [facility] Comment on above: Performed By: #### 5 [id number], [id number], [id number], [id number], [id number], 7133552, 6346848 #### [facility] (DEFAULT) [address] [place] [address] Neut Abs# 13.5 x10 High 1.5-9.2 [facility] Comment on above: Result Comment: Slid e Reviewed Performed By: #### 5 [id number], [id number], [id number], 63945772, [id number], 1145089, 1855000 #### [facility] (DEFAULT) [address] [place] [address] Neutrophils/100 WBC (Bld) 82 % Normal 44-88 [facility] Comment on above: Performed By: #### 5 [id number], [id number], [id number], [id number], 9881892874, 2683840, 9403357 #### [facility] (DEFAULT) [address] [place] [address] CBC w/ Auto Diffon 4 Erythrocyte distribution width (RBC) [Ratio] 13.3 % Normal 11.5-15.0 [facility] Comment on above: Performed By: #### 5 [id number], [id number], [id number], [id number], [id number], 0198913, 1778253 #### [facility] (DEFAULT) [address] [place] [address] Hematocrit (Bld) [Volume fraction] 45.0 % High 33.7-40.4 [facility] Comment on above: Performed By: #### 5 [id number], [id number], [id number], [id number], 5082600996, 4325873, 1718896 #### [facility] (DEFAULT) [address] [place] [address] Hemoglobin (Bld) [Mass/Vol] 15.0 g/dL Normal 11.3-15.9 [facility] Comment on above: Performed By: #### 5 [id number], [id number], [id number], 87133619, 7225307979, 6899163, 6520464 #### [facility] (DEFAULT) [address] [place] [address] Man Diff? Auto Invalid Interpretation Code [facility] Comment on above: Performed By: #### 5 [id number], [id number], [id number], 84041002, 8995528999, 1339351, 4943505 #### [facility] (DEFAULT) [address] [place] [address]2879 MCH (RBC) [Entitic mass] 32 pg Normal 24-34 [facility] Comment on above: Performed By: #### 5 [id number], [id number], [id number], 96510346, [id number], 2676395, 8293128 #### [facility] (DEFAULT) [address] [place] [address] 16682 MCHC (RBC) [Mass/Vol] 33 g/dL Normal 26-37 [facility] Comment on above: Performed By: #### 5 [id number], [id number], [id number], [id number], 1224265524, 5983952, 3483918 #### [facility] (DEFAULT) [address] [place] [address] 15087 MCV (RBC) [Entitic vol] 95 fL Normal 81-100 [facility] Comment on above: Performed By: #### 5 [id number], [id number], [id number], 20996579, [id number], 3642292, 0821675 #### [facility] (DEFAULT) [address] [place] [address] 97955 Platelet 292 x10 Normal 138-427 [facility] Comment on above: Performed By: #### 5 [id number], [id number], 1478375670, 26777424, 5470199237, 3118742, 0715351 #### [facility] (DEFAULT) [address] [place] [address] Platelet mean volume (Bld) [Entitic vol] 8.7 fL Normal 6.3-10.2 [facility] Comment on above: Performed By: #### 5 [id number], [id number], 5242644680, 27158830, 8667696204, 7410808, 7421398 #### [facility] (DEFAULT) [address] [place] [address] RBC 4.74 x10 Normal 3.70-5.30 [facility] Comment on above: Performed By: #### 5 [id number], [id number], 7739045501, 10327372, 0660528945, 6151685, 1676232 #### [facility] (DEFAULT) [address] [place] [address] WBC 16.4 x10 High 3.5-10.5 [facility] Comment on above: Performed By: #### 5 [id number], [id number], 2635076635, 74198353, 7902030912, 6854616, 5487552 #### [facility] (DEFAULT) [address] [place] [address] 58650 CMP Standardon 03-15-2024 eGFR Non AA >60 Invalid Interpretation Code [facility] Comment on above: Performed By: #### 5 [id number], [id number], [id number], 52510414, 5910137130, 2718336, 6732828 #### [facility] (DEFAULT) [address] [place] [address] 22019 eGFR AA >60 Invalid Interpretation Code [facility] Comment on above: Performed By: #### 5 [id number], [id number], [id number], 69361437, 3456363872, 9130301, 6860236 #### [facility] (DEFAULT) [address] [place] [address] 17702 Albumin [Mass/Vol] 4.1 g/dL Normal 3.5-5.0 [facility] Comment on above: Performed By: #### 5 [id number], [id number], 9654024999, 18592865, 1955393562, 1401354, 3529183 #### [facility] (DEFAULT) [address] [place] [address] 08020 Albumin/Globulin [Mass ratio] 1.3 {ratio} Low 1.4-2.6 [facility] Comment on above: Performed By: #### 5 [id number], [id number], 9563404940, 26967711, 8836420679, 1912219, 1889831 #### [facility] (DEFAULT) [address] [place] [address] 10871 Alk Phos 39 IU/L Normal 32-91 [facility] Comment on above: Performed By: #### 5 [id number], [id number], 0742037095, 87308517, 8088717930, 6209848, 7990061 #### [facility] (DEFAULT) [address] [place] [address] 72292 ALT [Catalytic activity/Vol] 32.0 U/L Normal 14.0-54.0 [facility] Comment on above: Performed By: #### 5 [id number], [id number], 2997776983, 06992296, 9727664673, 0626674, 4224410 #### [facility] (DEFAULT) [address] [place] [address] 89430 Anion gap [Moles/Vol] 13.0 mmol/L Normal 5.0-19.0 [facility] Comment on above: Performed By: #### 5 [id number], [id number], 6156509283, 46272211, 4602196369, 6484529, 0987773 #### [facility] (DEFAULT) [address] [place] [address] 24307 AST [Catalytic activity/Vol] 25 U/L Normal 15-41 [facility] Comment on above: Performed By: #### 5 [id number], [id number], [id number], 51269758, 6418405423, 0537840, 9961473 #### [facility] (DEFAULT) [address] [place] [address] 05367 Bili Total 1.4 mg/dL High 0.3-1.2 [facility] Comment on above: Performed By: #### 5 [id number], [id number], [id number], [id number], [id number], 7932688, 3996029 #### [facility] (DEFAULT) [address] [place] [address] 53665 Calcium [Mass/Vol] 8.8 mg/dL Low 8.9-10.3 [facility] Comment on above: Performed By: #### 5 [id number], [id number], [id number], 79317375, [id number], 3386836, 4269467 #### [facility] (DEFAULT) [address] [place] [address] 45578 Chloride [Moles/Vol] 105 mmol/L Normal 101-111 [facility] Comment on above: Performed By: #### 5 [id number], [id number], [id number], [id number], [id number], 5995582, 4504933 #### [facility] (DEFAULT) [address] [place] [address] 77821 CO2 [Moles/Vol] 24 mmol/L Normal 21-32 [facility] Comment on above: Performed By: #### 5 [id number], [id number], [id number], 71025700, [id number], 3243496, 3413649 #### [facility] (DEFAULT) [address] [place] [address] 51937 Creatinine [Mass/Vol] 0.72 mg/dL Normal 0.60-1.30 [facility] Comment on above: Performed By: #### 5 [id number], [id number], [id number], 82332919, 3845443291, 8515599, 6113930 #### [facility] (DEFAULT) [address] [place] [address] 27737 Globulin (S) [Mass/Vol] 3.0 g/dL Normal 1.5-4.3 [facility] Comment on above: Performed By: #### 5 [id number], [id number], [id number], 19351102, 3243500135, 6345263, 9716386 #### [facility] (DEFAULT) [address] [place] [address] 84492 Glucose [Mass/Vol] 124.0 mg/dL High 74.0-118.0 [facility] Comment on above: Performed By: #### 5 [id number], [id number], [id number], 15623962, 8123914399, 5730236, 1137152 #### [facility] (DEFAULT) [address] [place] [address] 03535 Osmolality 278 mOsm/L Invalid Interpretation Code [facility] Comment on above: Performed By: #### 5 [id number], [id number], [id number], 02513103, [id number], 4240008, 0214148 #### [facility] (DEFAULT) [address] [place] [address] 77077 Potassium [Moles/Vol] 4.0 mmol/L Normal 3.6-5.1 [facility] Comment on above: Performed By: #### 5 [id number], [id number], 8905476475, 63278550, 9520841620, 4689019, 0699245 #### [facility] (DEFAULT) [address] [place] [address] 06389 Protein [Mass/Vol] 7.1 g/dL Normal 6.5-8.1 [facility] Comment on above: Performed By: #### 5 [id number], [id number], [id number], 85201090, 1390397465, 0956022, 6263207 #### [facility] (DEFAULT) [address] [place] [address] 42507 Sodium [Moles/Vol] 138.0 mmol/L Normal 136.0-144.0 [facility] Comment on above: Performed By: #### 5 [id number], [id number], 6058157540, 70643993, 7375016516, 4151250, 9959818 #### [facility] (DEFAULT) [address] [place] [address] 66896 Urea nitrogen [Mass/Vol] 15 mg/dL Normal 8-26 [facility] Comment on above: Performed By: #### 5 [id number], [id number], 7949118856, 03679172, 6254692487, 9451883, 8429641 #### [facility] (DEFAULT) [address] [place] [address] 66751 Urea nitrogen/Creatinine [Mass ratio] 20.8 mg/mg High 4.6-16.2 [facility] Comment on above: Performed By: #### 5 [id number], [id number], [id number], 58462815, 5692607668, 1897753, 9281082 #### [facility] (DEFAULT) [address] [place] [address] 74114 Breakpoint Chem Normal [facility] Comment on above: Performed By: #### 5 [id number], [id number], 6578929633, 69211495, 9343026554, 6459342, 4472204 #### [facility] (DEFAULT) [address] [place] [address] 65742 ED Clinical Summaryon 2023 ED Clinical Summary [facility] - Emergency Department [address] [place] [address] ED Clinical Summary PERSON INFORMATION Name: HORACIO KEATING Age: 48 Years Sex: FEMALE : 1975 MRN: Acct#: Visit Reason: Shortness of breath; Anxiety; Blood pressure check; SOB Arrival: 03/15/2024 17:56:51 Discharge: 03/15/2024 20:31:00 LOS: 000 02:35 Check In: 03/15/2024 17:56:51 Checkout:03/15/2024 20:31:00 Address: [address] [place], [place] [address] PCP: SAMI MARINELLI PROVIDER INFORMATION Provider Role Assigned Unassigned Nicola Neff DO ED Provider 03/15/2024 18:07:25 Solange MALHOTRA, Shanika Lawton ED Nurse 03/15/2024 18:08:57 Joanna Angeles STEAM TABLE WORKER Nurse 03/15/2024 19:24:01 VITALS INFORMATION Vital Sign [...] . Physical Exa (more content not included)... [facility] ED Note - Physicianon 2023 ED [...] No lymphadenopathy. Psychiatric: (more content not included)... [facility] ED Note-Nursingon 03-15-2024 ED Note-Nursing Patient presents to the ER via [facility] for shortness of breath, anxiety. Patient [...] cannula. 12 lead was regular in rate [facility] ED Patient Summaryon 024 ED Patient Summary [facility] - Emergency Department [address] [place] [address] PATIENT DISCHARGE INSTRUCTIONS Patient Information Name: HORACIO KEATING Age: 48 Years Date of : 1975 Reason For Visit: Shortness of breath; Anxiety; Blood pressure check; SOB Arrival Time: 03/15/2024 17:56:51 Primary Care Physician: SAMI MARINELLI Attending Physician: Nicola Neff DO Comment: Visit Diagnosis: Diagnoses This Visit Anxiety ([id number]) Blood pressure check ([id number]) Hypertension (I10) Panic attack (F41.0) Shortness of breath ([id number]) Urinary tract infection (N39.0) The Pharmacy at [facility] is open Friday through Friday from [...] alcohol and/or drug addiction problems; contact the [facility] 23/06 Crisis Hotline -Text 7NKWY qj [phone]. If you received any narcotics, sedation, or [...] legal documents With: Address: When: SAMI MARINELLI [address] [place] [address] [address] [place] [id number] Business (1) Within 3 to 5 days Comments: Call for follow up appointment Return if symptoms worsen Medication Information: The exam and treatment you received today in the [facility] Emergency Department were for an urgent problem and are not intended as complete care. It is important for you to follow up with a doctor, nurse practitioner, or physician?s talent assistant for ongoing care. If your symptoms [...] so we can reach you if necessary. [facility] Emergency Department has provided you with a complete list of medications post discharge. Please inform your inbound call center agent/provider of your visit and for further instruction [...] Vitals an (more content not included)... Normal [facility] Extra Greenon 03-15-2024 Tube Collected Yes Invalid Interpretation Code [facility] Comment on above: Performed By: #### 5 [id number], [id number], [id number], 50218418, 5462766509, 0076645, 1956090 #### [facility] (DEFAULT) [address] [place] [address] 27703 Extra Redon 03-15-2024 Tube Collected Yes Invalid Interpretation Code [facility] Comment on above: Performed By: #### 5 [id number], [id number], [id number], 37600652, 1982556101, 3844607, 2831596 #### [facility] (DEFAULT) [address] [place] [address] 50836 PTon 03-15-2024 INR Coag (PPP) [Relative time] 0.94 {INR} Normal 0.91-1.11 [facility] Comment on above: Performed By: #### 5 [id number], [id number], 0681598899, 87852924, 9560932987, 2144496, 6275554 #### [facility] (DEFAULT) [address] [place] [address] 40198 PT 9.8 second(s) Normal 9.7-11.8 [facility] Comment on above: Performed By: #### 5 [id number], [id number], 8505003528, 88022643, 7054721320, 1142209, 3902630 #### [facility] (DEFAULT) [address] [place] [address] 67039 TnI HSon 03-15-2024 Troponin I High Sensitivity 7.7 pg/mL Normal <=15.0 [facility] Comment on above: Performed By: #### 5 [id number], [id number], 9522682490, 59612024, 8502717864, 9958670, 1444572 #### [facility] (DEFAULT) [address] [place] [address] UA Atwpt4hh 03-15-2024 UA Amorph. 1+ [facility] Comment on above: Order Comment: Urina lysis Microscopic order added on by Discern Expert Rules system. Performed By: #### 5 [id number], [id number], 7293344 ####[facility] (DEFAULT)[address] [place] [address] UA Bacteria 3+ Normal [facility] Comment on above: Order Comment: Urina lysis Microscopic order added on by Discern Expert Rules system. Performed By: #### 5 [id number], [id number], 5171894 ####[facility] (DEFAULT)[address] [place] [address] UA Mucous 1+ [facility] Comment on above: Order Comment: Urina lysis Microscopic order added on by Discern Expert Rules system. Performed By: #### 5 [id number], [id number], 9295010 ####[facility] (DEFAULT)[address] [place] [address] UA RBC 3-5 [facility] Comment on above: Order Comment: Urina lysis Microscopic order added on by Discern Expert Rules system. Performed By: #### 5 [id number], [id number], 8097744 ####[facility] (DEFAULT)[address] [place] [address] UA Renal Epi Rare [facility] Comment on above: Order Comment: Urina lysis Microscopic order added on by Discern Expert Rules system. Performed By: #### 5 [id number], [id number], 2258488 ####[facility] (DEFAULT)[address] [place] [address] UA Squam Epi Many Normal [facility] Comment on above: Order Comment: Urina lysis Microscopic order added on by Discern Expert Rules system. Performed By: #### 5 [id number], [id number], 8125193 ####[facility] (DEFAULT)[address] [place] [address] UA WBC 3-5 [facility] Comment on above: Order Comment: Urina lysis Microscopic order added on by Discern Expert Rules system. Performed By: #### 5 [id number], [id number], 8187932 ####[facility] (DEFAULT)[address] [place] [address] UA w Culture if Ind Standard on 03-15-2024 Breakpoint UA [facility] Comment on above: Performed By: #### 5 [id number], [id number], 1435559 ####[facility] (DEFAULT)[address] [place] [address] Color (U) Yellow [facility] Comment on above: Performed By: #### 5 [id number], [id number], 8364696 ####[facility] (DEFAULT)[address] [place] [address] Culture? Indicated Invalid Interpretation Code [facility] Comment on above: Result Comment: Resu lt created by rule GL_MAGR_ADD_UA_CULT Result created by rule GL_MAGR_ADD_UA_CULT Result created by rule GL_MAGR_ADD_UA_CULT1 Result created by rule GL_MAGR_ADD_UA_CULT Performed By: #### 5 [id number], [id number], 7096213 ####[facility] (DEFAULT)[address] [place] [address] Glucose (U) [Mass/Vol] Negative [place] Comment on above: Performed By: #### 5 [id number], [id number], 1889892 ####[facility] (DEFAULT)[address] [place] [address] Ketones Ql (U) Negative [facility] Comment on above: Performed By: #### 5 [id number], [id number], 6260434 ####[facility] (DEFAULT)[address] [place] [address] Micro? Indicated Invalid Interpretation Code [facility] Comment on above: Result Comment: Resu lt created by rule GL_MAGR_ADD_UA_MICRO Performed By: #### 5 [id number], [id number], [id number] ####[facility] (DEFAULT)[address] [place] [address] UA Bilirubin Negative Normal [facility] Comment on above: Performed By: #### 5 [id number], [id number], 9351529 ####[facility] (DEFAULT)[address] [place] [address] 73115 UA Blood TRACE Abnormal NEGATIVE [facility] Comment on above: Performed By: #### 5 [id number], [id number], 5270990 ####[facility] (DEFAULT)[address] [place] [address] 31501 UA Clarity SL CLOUDY Abnormal CLEAR [facility] Comment on above: Performed By: #### 5 [id number], [id number], 0406797 ####[facility] (DEFAULT)[address] [place] [address] 52182 UA Leuk Est LARGE Abnormal NEGATIVE [facility] Comment on above: Performed By: #### 5 [id number], [id number], 1162427 ####[facility] (DEFAULT)[address] [place] [address] 46276 UA Nitrite Negative Normal [facility] Comment on above: Performed By: #### 5 [id number], [id number], 7210121 ####[facility] (DEFAULT)[address] [place] [address] 19868 UA pH 6.0 Normal 5-8 [facility] Comment on above: Performed By: #### 5 [id number], [id number], 6654563 ####[facility] (DEFAULT)[address] [place] [address] 76110 UA Protein Negative Normal NEGATIVE [facility] Comment on above: Performed By: #### 5 [id number], [id number], 3973244 ####[facility] (DEFAULT)[address] [place] [address] 86834 UA Spec Grav 1.015 Normal 1.001-1.035 [facility] Comment on above: Performed By: #### 5 [id number], [id number], 5085367 ####[facility] (DEFAULT)[address] [place] [address] 00646 UA Urobilinogen 0.2 mg/dL Normal 0.2-1.0 [facility] Comment on above: Performed By: #### 5 [id number], [id number], 3326850 ####[facility] (DEFAULT)[address] [place] [address] Urine Source Clean Catch Normal [facility] Comment on above: Performed By: #### 5 [id number], [id number], 9633088 ####[facility] (DEFAULT)[address] [place] [address] XR Chest 1 View Frontalon XR Chest [...] MD 03/15/24 7:34 pm Technologist: Lizzy BRICEÑO [facility] Calcium [Mass/volume] in Ser um or PlasmaOrdered By: Dedrick Fuller on 08-15-2023 Calcium [Mass/Vol] 9.1 mg/dL 8.6-10.3 [facility] Carbon dioxide, total [Moles /volume] in Serum or PlasmaOrdered By: Dedrick Fuller on 08-15-2023 CO2 [Moles/Vol] 26.7 mmol/L 21.0-31.0 [facility] Chloride [Moles/volume] in S altagracia or PlasmaOrdered By: Dedrick Fuller on 08-15-2023 Chloride [Moles/Vol] 107 mmol/L 98-107 [facility] Cholesterol [Mass/volume] in Serum or PlasmaOrdered By: Dedrick Fuller on 08-15-2023 Cholesterol [Mass/Vol] 166 mg/dL 140-200 [facility] Comment on above: Chol less than 200 m g/dl low riskChol 201-239 mg/dl borderline riskChol 240 mg/dl and greater high risk Cholesterol in LDL Calc [Mas s/Vol]Ordered By: Dedrick Fuller on 08-15-2023 Cholesterol in LDL [Mass/Vol] 95 mg/dL 0-100 [facility] Comment on above: LDL ATP III CLASSIFI CATIONLDL less than 100 mg/dL OptimalLDL 100-129 mg/dL Near or above optimalLDL 130-159 mg/dL Borderline highLDL 160-189 mg/dL HighLDL greater than 189 mg/dL Very high Cholesterol in VLDL Calc [Ma ss/Vol]Ordered By: Dedrick Fuller on 08-15-2023 Cholesterol in VLDL [Mass/Vol] 32 mg/dL [facility] Creatinine [Mass/volume] in Serum or PlasmaOrdered By: Dedrick Fuller on 08-15-2023 Creatinine [Mass/Vol] 0.77 mg/dL 0.60-1.20 [facility] Glucose [Mass/volume] in Ser um or PlasmaOrdered By: Dedrick Fuller on 08-15-2023 Glucose [Mass/Vol] 97 mg/dL 70-100 [facility] Comment on above: ADA recommended refe rence rangeRandom Glucose Reference Range is dependent on time and content of last meal. Glucose of more than 200 mg/dL in a nonstressed, ambulatory subject supports the diagnosis of Diabetes Mellitus. No Panel InformationOrdered By: Dedrick Fuller on 08-15-2023 Estimated GFR (CKD-EPI) > 60.0 mL/Min [facility] Creatinine Clearance (Chem N/A [facility] Potassium [Moles/volume] in Serum or PlasmaOrdered By: Dedrick Fuller on 08-15-2023 Potassium [Moles/Vol] 4.0 mmol/L 3.5-5.1 [facility] Serum or plasma anion gap de terminationOrdered By: Dedrick Fuller on 08-15-2023 Anion gap [Moles/Vol] 10.3 mmol/L 6.0-15.0 [facility] Serum or plasma high density lipoprotein (HDL) cholesterol measurementOrdered By: Dedrick Fuller on 08-15-2023 Cholesterol in HDL [Mass/Vol] 39 mg/dL 23-92 [facility] Comment on above: HDL CHOL ATP-III CLA SSIFICATION Cardiovascular RiskHDL > or equal to 60 mg/dL LOWHDL < 40 mg/dL HIGH Serum or plasma total choles terol/high density lipoprotein (HDL) cholesterol mass ratOrdered By: Dedrick Fuller on 08-15-2023 Cholesterol.total/Mirta sterol in HDL [Mass ratio] 4.3 {ratio} <5.0 [facility] Sodium [Moles/volume] in Ser um or PlasmaOrdered By: Dedrick Fuller on 08-15-2023 Sodium [Moles/Vol] 140 mmol/L 136-145 [facility] Triglyceride [Mass/volume] i n Serum or PlasmaOrdered By: Dedrick Fuller on 08-15-2023 Triglyceride [Mass/Vol] 162 mg/dL 0-149 [facility] Comment on above: TRIG ATP III CLASSIF ICATIONTRIG less than 150 mg/dL NormalTRIG 150-199 mg/dL Borderline highTRIG 200-500 mg/dL High TRIG greater than 500 mg/dL Very highStandard traceable to the Center for Disease Conrtrol and Prevention (CDC) test method. Urea nitrogen [Mass/volume] in Serum or PlasmaOrdered By: Dedrick Fuller on 08-15-2023 Urea nitrogen [Mass/Vol] 10 mg/dL 7-25 [facility] GTT 2 HRon 11-09-2022 Glucose [Mass/Vol] 107 mg/dL Critically high 74-106 [facility] Comment on above: Performed By: #### U LG, CRP #### [facility] [address] [place] [address] [address] Soo Donnelly Glucose [Mass/Vol] 152 mg/dL Normal [facility] Comment on above: Performed By: #### U LG, CRP #### [facility] [address] [address] [address] Soo Donnelly Glucose [Mass/Vol] 121 mg/dL Normal [facility] Comment on above: Performed By: #### U LG, CRP #### [facility] [address] [address] [address] Soo Donnelly Facesheeton 11-05-2022 Facesheet [id number] .00CD:127 Normal [facility] Physician Referralon Physician Referral [id number] .00CD:[address] [facility] [address] ABD/PELV W CONon 10-01-20 22 [...] ELENA SAUCEDA Date: 2022-10-01 10:31 Normal [facility] CBC AUTO DIFFon 09-18-2022 BASO # 0.0 103/ul Normal 0.0-0.1 [facility] Comment on above: Performed By: #### A NAD #### [facility] [address] [place] [address] Dr. Soo Donnelly Basophils/100 WBC (Bld) 0.4 % Normal 0.2-2.0 [facility] Comment on above: Performed By: #### A NAD #### [facility] [address] [place] [address] Dr. Soo Donnelly EO # 0.1 103/ul Normal 0.0-0.7 [facility] Comment on above: Performed By: #### A NAD #### [facility] [address] [place] [address] Dr. Soo Donnelly Eosinophils/100 WBC (Bld) 1.8 % Normal 0.9-7.0 [facility] Comment on above: Performed By: #### A NAD #### [facility] [address] [place] [address] Dr. Soo Donnelly Erythrocyte distribution width (RBC) [Ratio] 11.9 % Normal 11.0-15.0 [facility] Comment on above: Performed By: #### A NAD #### [facility] [address] [place] [address] Dr. Soo Donnelly Hematocrit (Bld) [Volume fraction] 43.9 % Normal 36.0-48.0 [facility] Comment on above: Performed By: #### A NAD #### [facility] [address] [place] [address] Dr. Soo Donnelly Hemoglobin (Bld) [Mass/Vol] 14.6 g/dL Normal 12.0-16.0 [facility] Comment on above: Performed By: #### A NAD #### [facility] [address] [place] [address] Dr. Soo Donnelly IG # 0.01 10e3/ul Normal 0.00-0.03 [facility] Comment on above: Performed By: #### A NAD #### [facility] [address] [place] [address] Dr. Soo Donnelly IG % 0.1 % Normal 0.0-0.5 [facility] Comment on above: Performed By: #### A NAD #### [facility] [address] [place] [address] Dr. Soo Donnelly LYMPH # 2.7 103/ul Normal 1.2-3.8 [facility] Comment on above: Performed By: #### A NAD #### [facility] [address] [place] [address] Dr. Soo Donnelly Lymphocytes/100 WBC (Bld) 39.9 % Normal 20.5-60.0 [facility] Comment on above: Performed By: #### A NAD #### [facility] [address] [place] [address] Dr. Soo Donnelly MANUAL DIFF REQ NO Normal [facility] Comment on above: Performed By: #### A NAD #### [facility] [address] [place] [address] Dr. Soo Donnelly MCH (RBC) [Entitic mass] 31.7 pg Normal 26.7-34.0 [facility] Comment on above: Performed By: #### A NAD #### [facility] [address] [place] [address] Dr. Soo Donnelly MCHC (RBC) [Mass/Vol] 33.3 g/dL Normal 29.9-35.2 [facility] Comment on above: Performed By: #### A NAD #### [facility] [address] [place] [address] Dr. Soo Donnelly MCV (RBC) [Entitic vol] 95.4 fL Normal 81.0-99.0 [facility] Comment on above: Performed By: #### A NAD #### [facility] [address] [place] [address] Dr. Soo Donnelly MONO # 0.4 103/ul Normal 0.3-0.8 [facility] Comment on above: Performed By: #### A NAD #### [facility] [address] [place] [address] Dr. Soo Donnelly Monocytes/100 WBC (Bld) 5.9 % Normal 1.7-12.0 [facility] Comment on above: Performed By: #### A NAD #### [facility] [address] [place] [address] Dr. Soo Donnelly NEUT # 3.5 103/ul Normal 1.4-6.5 [facility] Comment on above: Performed By: #### A NAD #### [facility] [address] [place] [address] Dr. Soo Donnelly Neutrophils/100 WBC (Bld) 51.9 % Normal 43.0-75.0 [facility] Comment on above: Performed By: #### A NAD #### [facility] [address] [place] [address] Dr. Soo Donnelly Platelet mean volume (Bld) [Entitic vol] 10.8 fL Normal 9.5-13.5 [facility] Comment on above: Performed By: #### A NAD #### [facility] [address] [place] [address] Dr. Soo Donnelly PLT 220 103/ul Normal 150-450 [facility] Comment on above: Performed By: #### A NAD #### [facility] [address] [place] [address] Dr. Soo Donnelly RBC 4.60 106/ul Normal 4.20-5.40 [facility] Comment on above: Performed By: #### A NAD #### [facility] [address] [place] [address] Dr. Soo Donnelly WBC 6.8 103/ul Normal 4.0-11.0 [facility] Comment on above: Performed By: #### A NAD #### [facility] [address] [place] [address] Dr. Soo Donnelly ER URINE PROFILEon 2 Bilirubin Ql (U) Negative Normal NEGATIVE [facility] Comment on above: Performed By: #### U LG, CRP #### [facility] [address] [place] [address] Dr. Soo Donnelly Clarity (U) CLEAR Normal CLEAR [facility] Comment on above: Performed By: #### U LG, CRP #### [facility] [address] [place] [address] Dr. Soo Donnelly Color (U) LT. YELLOW Normal YELLOW [facility] Comment on above: Performed By: #### U LG, CRP #### [facility] [address] [address] [address] Soo CORTEZ A micrscopic examination will be performed if indicated. Normal [facility] Comment on above: Performed By: #### U LG, CRP #### [facility] [address] [place] [address] Dr. Soo Donnelly Glucose Ql (U) Negative Normal NEGATIVE [facility] Comment on above: Performed By: #### U LG, CRP #### [facility] [address] [address] [address] Soo Donnelly Hemoglobin Ql (U) Negative Normal NEGATIVE [facility] Comment on above: Performed By: #### U LG, CRP #### [facility] [address] [place] [address] Dr. Soo Donnelly Ketones Ql (U) Negative Normal NEGATIVE [facility] Comment on above: Performed By: #### U LG, CRP #### [facility] [address] [place] [address] Dr. Soo Donnelly LEUKOCYTES Negative Normal NEGATIVE [facility] Comment on above: Performed By: #### U LG, CRP #### [facility] [address] [place] [address] Dr. Soo Donnelly Nitrite Ql (U) Negative Normal NEGATIVE [facility] Comment on above: Performed By: #### U LG, CRP #### [facility] [address] [place] [address] Dr. Soo Donnelly pH (U) 6.0 [pH] Normal 5-9 [facility] Comment on above: Performed By: #### U LG, CRP #### [facility] [address] [address] [address] Soo Donnelly SPEC GRAVITY 1.015 Normal 1.005-<=1.02 5 [facility] Comment on above: Performed By: #### U LG, CRP #### [facility] [address] [place] [address] Dr. Soo Donnelly UA PROTEIN Negative Normal NEGATIVE/ TRACE [facility] Comment on above: Performed By: #### U LG, CRP #### [facility] [address] [address] [address] Soo Donnelly UR MICRO IND NOT INDICATED Normal [facility] Comment on above: Performed By: #### U LG, CRP #### [facility] [address] [address] [address] Soo Donnelly Urobilinogen Qn (U) 0.2 {Roma'U}/dL Normal 0.2 - 1. 0 [facility] Comment on above: Performed By: #### U LG, CRP #### [facility] [address] [address] [address] Soo Donnelly PROF CHEM 8 (BAS METB)on Anion gap [Moles/Vol] 10.2 mmol/L Normal [facility] Comment on above: Performed By: #### B MP #### [facility] [address] [place] [address] Dr. Soo Donnelly Calcium [Mass/Vol] 8.7 mg/dL Normal 8.5-10.1 [facility] Comment on above: Performed By: #### B MP #### [facility] [address] [place] [address] Dr. Soo Donnelly Chloride [Moles/Vol] 103 mmol/L Normal 98-107 [facility] Comment on above: Performed By: #### B MP #### [facility] [address] [place] [address] Dr. Soo Donnelly CO2 [Moles/Vol] 27.9 mmol/L Normal 21.0-32.0 [facility] Comment on above: Performed By: #### B MP #### [facility] [address] [place] [address] Dr. Soo Donnelly Creatinine [Mass/Vol] 0.80 mg/dL Normal 0.55-1.02 [facility] Comment on above: Performed By: #### B MP #### [facility] [address] [place] [address] Dr. Soo Donnelly EGFR-AF SWEDISH >60 Normal >=60 [facility] Comment on above: Performed By: #### B MP #### [facility] [address] [address] [address] Soo Donnelly EGFR-NON AF SWEDISH >60 Normal >=60 [facility] Comment on above: Performed By: #### B MP #### [facility] [address] [address] [address] Soo Donnelly Glucose [Mass/Vol] 103 mg/dL Normal 74-106 [facility] Comment on above: Performed By: #### B MP #### [facility] [address] [address] [address] Soo Donnelly Potassium [Moles/Vol] 4.1 mmol/L Normal 3.5-5.1 [facility] Comment on above: Performed By: #### B MP #### [facility] [address] [address] [address] Soo Donnelly Sodium [Moles/Vol] 137 mmol/L Normal 136-145 [facility] Comment on above: Performed By: #### B MP #### [facility] [address] [address] [address] Soo Donnelly Urea nitrogen [Mass/Vol] 11.0 mg/dL Normal 7.0-18.0 [facility] Comment on above: Performed By: #### B MP #### [facility] [address] [address] [address] Soo Donnelly Urea nitrogen/Creatinine [Mass ratio] 13.8 mg/mg Normal [facility] Comment on above: Performed By: #### B MP #### [facility] [address] [address] [address] Soo Donnelly XR KUB 1 VIEWon [...] ELENA SAUCEDA Date: 2022-09-18 12:12 Normal [facility] MAMM SCREEN 3D DEAN CADon 09-12-2022 MG MAMM SCREEN 3D DEAN CAD Patient: HORACIO KEATING Exam Date: 09/12/2022 : 1975 Gender:F Ordering : DR DELGADO MURILLO . Admission #: [id number] Family : Order #: [id number] CLICK HERE TO VIEW EXAM RADIOLOGY REPORT [...] ovarian cancer at age 77. LOCATION: [facility] BREAST COMPOSITION: Scattered areas fibroglandular density. [...] MD on 09/13/2022 at 07:46 Normal [facility] INSULINon 07-20-2022 Insulin 25.5 uIU/mL Critically high 2.6-24.9 [facility] Comment on above: Performed By: #### U LG, CRP #### [facility] [address] [address] [address] Soo Donnelly T4 LABCORPon 07-20-2022 T4 [Mass/Vol] 7.4 ug/dL Normal 4.5-12.0 [facility] Comment on above: Performed By: #### A NAD #### [facility] [address] [place] [address] [id number] [address] Soo Donnelly CBC W MANUAL DIFFon 07-19-20 22 ATYPICAL LYMPH # Normal [facility] Comment on above: Performed By: #### B UN, CREA #### [facility] [address] [place] [address] Dr. Soo Donnelly ATYPICAL LYMPH % Normal [facility] Comment on above: Performed By: #### B UN, CREA #### [facility] [address] [place] [address] Dr. Soo Donnelly BAND # Normal 0.0-0.3 [facility] Comment on above: Performed By: #### B UN, CREA #### [facility] [address] [place] [address] Dr. Soo Donnelly BAND % Normal 0-5 [facility] Comment on above: Performed By: #### B UN, CREA #### [facility] [address] [place] [address] Dr. Soo Donnelly BASOM # 0.00 103/ul Normal 0.00-0.10 [facility] Comment on above: Performed By: #### B UN, CREA #### [facility] [address] [place] [address] Dr. Soo Donnelly BASOM % 0.0 % Critically low 0.2-2.0 [facility] Comment on above: Performed By: #### B UN, CREA #### [facility] [address] [place] [address] Dr. Soo Donnelly BLAST # Normal [facility] Comment on above: Performed By: #### B UN, CREA #### [facility] [address] [place] [address] Dr. Soo Donnelly BLAST % Normal [facility] Comment on above: Performed By: #### B UN, CREA #### [facility] [address] [place] [address] Dr. Soo Donnelly CORRECTED WBC Normal 4.0-11.0 [facility] Comment on above: Performed By: #### B UN, CREA #### [facility] [address] [place] [address] Dr. Soo Donnelly EOS # 0.31 103/ul Normal 0.00-0.70 [facility] Comment on above: Performed By: #### B UN, CREA #### [facility] [address] [place] [address] Dr. Soo Donnelly EOS% 2.0 % Normal 0.9-7.0 [facility] Comment on above: Performed By: #### B UN, CREA #### [facility] [address] [place] [address] Dr. Soo Donnelly HCT 41.6 % Normal 36.0-48.0 [facility] Comment on above: Performed By: #### B UN, CREA #### [facility] [address] [place] [address] Dr. Soo Donnelly HGB 13.8 g/dl Normal 12.0-16.0 [facility] Comment on above: Performed By: #### B UN, CREA #### [facility] [address] [place] [address] Dr. Soo Donnelly LYMPHM # 5.27 103/ul Critically high 1.20-3.80 [facility] Comment on above: Performed By: #### B UN, CREA #### [facility] [address] [place] [address] Dr. Soo Donnelly LYMPHM% 34.0 % Normal 20.5-60.0 [facility] Comment on above: Performed By: #### B UN, CREA #### [facility] [address] [place] [address] Dr. Soo Donnelly MCH 31.5 pg Normal 26.7-34.0 [facility] Comment on above: Performed By: #### B UN, CREA #### [facility] [address] [place] [address] Dr. Soo Donnelly MCHC 33.2 g/dl Normal 29.9-35.2 [facility] Comment on above: Performed By: #### B UN, CREA #### [facility] [address] [place] [address] Dr. Soo Donnelly MCV 95.0 fL Normal 81.0-99.0 [facility] Comment on above: Performed By: #### B UN, CREA #### [facility] [address] [place] [address] Dr. Soo Donnelly METAMYELOCYTE # Normal [facility] Comment on above: Performed By: #### B UN, CREA #### [facility] [address] [place] [address] Dr. Soo Donnelly METAMYELOCYTE % Normal [facility] Comment on above: Performed By: #### B UN, CREA #### [facility] [address] [place] [address] Dr. Soo Donnelly MONOM# 0.93 103/ul Critically high 0.30-0.80 [facility] Comment on above: Performed By: #### B UN, CREA #### [facility] [address] [place] [address] Dr. Soo Donnelly MONOM% 6.0 % Normal 1.7-12.0 [facility] Comment on above: Performed By: #### B UN, CREA #### [facility] [address] [place] [address] Dr. Soo Donnelly MPV 10.1 fL Normal 9.5-13.5 [facility] Comment on above: Performed By: #### B UN, CREA #### [facility] [address] [place] [address] Dr. Soo Donnelly MYELOCYTE # Normal [facility] Comment on above: Performed By: #### B UN, CREA #### [facility] [address] [place] [address] Dr. Soo Donnelly MYELOCYTE % Normal [facility] Comment on above: Performed By: #### B UN, CREA #### [facility] [address] [place] [address] Dr. Soo Donnelly NRBC Normal [facility] Comment on above: Performed By: #### B UN, CREA #### [facility] [address] [place] [address] Dr. Soo Donnelly PLT 260 103/ul Normal 150-450 [facility] Comment on above: Performed By: #### B UN, CREA #### [facility] [address] [address] [address] Soo Donnelly RBC 4.38 106/ul Normal 4.20-5.40 [facility] Comment on above: Performed By: #### B UN, CREA #### [facility] [address] [address] [address] Soo Donnelly RDW 12.5 % Normal 11.0-15.0 [facility] Comment on above: Performed By: #### B UN, CREA #### [facility] [address] [address] [address] Soo Donnelly SEG # 8.99 103/ul Critically high 1.40-6.50 [facility] Comment on above: Performed By: #### B UN, CREA #### [facility] [address] [address] [address] Soo Donnelly SEG % 58.0 % Normal 43.0-75.0 [facility] Comment on above: Performed By: #### B UN, CREA #### [facility] [address] [address] [address] Soo Donnelly WBC 15.5 103/ul Critically high 4.0-11.0 [facility] Comment on above: Performed By: #### B UN, CREA #### [facility] [address] [address] [address] Soo Donnelly FREE T3on 07-19-2022 FREE T3 2.62 pg/mlL Normal 2.18-3.98 [facility] Comment on above: Performed By: #### U LG, CRP #### [facility] [address] [address] [address] Soo Donnelly GLYCOHEMOGLOBIN A1Con 2021 ADA RECOMMENDATION SEE BELOW Normal [facility] Comment on above: Result Comment: ADA RECOMMENDED LIMIT 4.0 - 6.0 ADA THERAPEUTIC TARGET < 7.0 ACTION SUGGESTED > 7.0 Performed By: #### U LG, CRP #### [facility] [address] [address] [address] Soo Donnelly Glucose [Mass/Vol] 137 mg/dL Normal [facility] Comment on above: Performed By: #### U LG, CRP #### [facility] [address] [address] [address] Soo Donnelly HbA1c (Bld) [Mass fraction] 6.4 % Critically high 4.5-6.2 [facility] Comment on above: Performed By: #### U LG, CRP #### [facility] [address] [address] [address] Soo Donnelly LIPID PROFILEon 07-19-2022 CHOL-HDL RATIO NORM SEE BELOW Normal [facility] Comment on above: Result Comment: 3.3 - 4.4 LOW RISK 4.4 - 7.1 AVERAGE RISK 7.1 - 11.0 MODERATE RISK >11.0 HIGH RISK Performed By: #### U LG, CRP #### [facility] [address] [address] [address] Soo Donnelly Cholesterol [Mass/Vol] 226 mg/dL Critically high <=200 [facility] Comment on above: Performed By: #### U LG, CRP #### [facility] [address] [address] [address] Soo Donnelly Cholesterol in HDL [Mass/Vol] 33 mg/dL Critically low 40-60 [facility] Comment on above: Performed By: #### U LG, CRP #### [facility] [address] [address] [address] Soo Donnelly Cholesterol in LDL [Mass/Vol] 135.2 mg/dL Normal [facility] Comment on above: Performed By: #### U LG, CRP #### [facility] [address] [address] [address] Soo Donnelly Cholesterol.total/Mirta sterol in HDL [Mass ratio] 6.8 {ratio} Normal [facility] Comment on above: Performed By: #### U LG, CRP #### [facility] [address] [address] [address] Soo Donnelly HDL NORMAL > or = 60 mg/dl - LO W CARDIOVASCULAR RISK <40 mg/dl - HIGH CARDIOVASCULAR RISK Normal [facility] Comment on above: Performed By: #### U LG, CRP #### [facility] [address] [address] [address] Soo Donnelly LDL CALC NORMAL SEE BELOW Normal [facility] Comment on above: Result Comment: <100 mg/dl OPTIMAL 100 - 129 mg/dl NEAR OR ABOVE OPTIMAL 130 - 159 mg/dl BORDERLINE HIGH 160 - 189 mg/dl HIGH >190 mg/dl VERY HIGH Performed By: #### U LG, CRP #### [facility] [address] [address] [address] Soo Donnelly Triglyceride [Mass/Vol] 289 mg/dL Critically high <=150 [facility] Comment on above: Performed By: #### U LG, CRP #### [facility] [address] [address] [address] Soo Donnelly VLDL CALC 57.8 mg/dL Normal [facility] Comment on above: Performed By: #### U LG, CRP #### [facility] [address] [address] [address] Soo Donnelly PROF 14(COMP METB)on 022 Albumin [Mass/Vol] 3.2 g/dL Critically low 3.4-5.0 [facility] Comment on above: Performed By: #### U LG, CRP #### [facility] [address] [address] [address] Soo Donnelly Albumin/Globulin [Mass ratio] 1.1 {ratio} Normal [facility] Comment on above: Performed By: #### U LG, CRP #### [facility] [address] [address] [address] Soo Donnelly ALP [Catalytic activity/Vol] 41 U/L Critically low 46-116 [facility] Comment on above: Performed By: #### U LG, CRP #### [facility] [address] [address] [address] Soo Donnelly ALT [Catalytic activity/Vol] 46 U/L Normal 14-59 [facility] Comment on above: Performed By: #### U LG, CRP #### [facility] [address] [address] [address] Soo Donnelly Anion gap [Moles/Vol] 9.3 mmol/L Normal [facility] Comment on above: Performed By: #### U LG, CRP #### [facility] [address] [address] [address] Soo Donnelly AST [Catalytic activity/Vol] 18 U/L Normal 15-37 [facility] Comment on above: Performed By: #### U LG, CRP #### [facility] [address] [address] [address] Soo Donnelly Bilirubin [Mass/Vol] 0.7 mg/dL Normal 0.2-1.0 [facility] Comment on above: Performed By: #### U LG, CRP #### [facility] [address] [address] [address] Soo Donnelly Calcium [Mass/Vol] 8.1 mg/dL Critically low 8.5-10.1 [facility] Comment on above: Performed By: #### U LG, CRP #### [facility] [address] [address] [address] Soo Donnelly Chloride [Moles/Vol] 101 mmol/L Normal 98-107 [facility] Comment on above: Performed By: #### U LG, CRP #### [facility] [address] [address] [address] Soo Donnelly CO2 [Moles/Vol] 31.1 mmol/L Normal 21.0-32.0 [facility] Comment on above: Performed By: #### U LG, CRP #### [facility] [address] [address] [address] Soo Donnelly Creatinine [Mass/Vol] 0.77 mg/dL Normal 0.55-1.02 [facility] Comment on above: Performed By: #### U LG, CRP #### [facility] [address] [address] [address] Soo Donnelly EGFR-AF SWEDISH >60 Normal >=60 [facility] Comment on above: Performed By: #### U LG, CRP #### [facility] [address] [address] [address] Soo Donnelly EGFR-NON AF SWEDISH >60 Normal >=60 [facility] Comment on above: Performed By: #### U LG, CRP #### [facility] [address] [address] [address] Soo Donnelly Globulin (S) [Mass/Vol] 3.0 g/dL Normal [facility] Comment on above: Performed By: #### U LG, CRP #### [facility] [address] [address] [address] Soo Donnelly Glucose [Mass/Vol] 104 mg/dL Normal 74-106 [facility] Comment on above: Performed By: #### U LG, CRP #### [facility] [address] [address] [address] Soo Donnelly Potassium [Moles/Vol] 3.4 mmol/L Critically low 3.5-5.1 [facility] Comment on above: Performed By: #### U LG, CRP #### [facility] [address] [address] [address] Soo Donnelly Protein [Mass/Vol] 6.2 g/dL Critically low 6.4-8.2 [facility] Comment on above: Performed By: #### U LG, CRP #### [facility] [address] [address] [address] Soo Donnelly Sodium [Moles/Vol] 138 mmol/L Normal 136-145 [facility] Comment on above: Performed By: #### U LG, CRP #### [facility] [address] [address] [address] Soo Donnelly Urea nitrogen [Mass/Vol] 16.0 mg/dL Normal 7.0-18.0 [facility] Comment on above: Performed By: #### U LG, CRP #### [facility] [address] [address] [address] Soo Donnelly Urea nitrogen/Creatinine [Mass ratio] 20.8 mg/mg Normal [facility] Comment on above: Performed By: #### U LG, CRP #### [facility] [address] [address] [address] Soo Donnelly TSHon 07-19-2022 TSH 3.262 uIU/mL Normal 0.358-3.740 [facility] Comment on above: Performed By: #### U LG, CRP #### [facility] [address] [address] [address] Soo Donnelly CBC AUTO DIFFon 05-18-2022 BASO # 0.0 103/ul Normal 0.0-0.1 [facility] Comment on above: Performed By: #### U GL, CRP #### [facility] [address] [address] [address] Soo Donnelly Basophils/100 WBC (Bld) 0.2 % Normal 0.2-2.0 [facility] Comment on above: Performed By: #### U LG, CRP #### [facility] [address] [address] [address] Soo Donnelly EO # 0.0 103/ul Normal 0.0-0.7 [facility] Comment on above: Performed By: #### U LG, CRP #### [facility] [address] [address] [address] Soo Donnelly Eosinophils/100 WBC (Bld) 0.2 % Critically low 0.9-7.0 [facility] Comment on above: Performed By: #### U LG, CRP #### [facility] [address] [address] [address] Soo Donnelly Erythrocyte distribution width (RBC) [Ratio] 12.8 % Normal 11.0-15.0 [facility] Comment on above: Performed By: #### U LG, CRP #### [facility] [address] [address] [address] Soo Donnelly Hematocrit (Bld) [Volume fraction] 35.7 % Critically low 36.0-48.0 [facility] Comment on above: Performed By: #### U LG, CRP #### [facility] [address] [address] [address] Soo Donnelly Hemoglobin (Bld) [Mass/Vol] 11.5 g/dL Critically low 12.0-16.0 [facility] Comment on above: Performed By: #### U LG, CRP #### [facility] [address] [place] [address] Dr. Soo Donnelly IG # 0.07 10e3/ul Critically high 0.00-0.03 [facility] Comment on above: Performed By: #### U LG, CRP #### [facility] [address] [place] [address] Dr. Soo Donnelly IG % 0.5 % Normal 0.0-0.5 [facility] Comment on above: Performed By: #### U LG, CRP #### [facility] [address] [place] [address] Dr. Soo Donnelly LYMPH # 4.1 103/ul Critically high 1.2-3.8 [facility] Comment on above: Performed By: #### U LG, CRP #### [facility] [address] [place] [address] Dr. Soo Donnelly Lymphocytes/100 WBC (Bld) 28.3 % Normal 20.5-60.0 [facility] Comment on above: Performed By: #### U LG, CRP #### [facility] [address] [place] [address] Dr. Soo Donnelly MANUAL DIFF REQ NO Normal [facility] Comment on above: Performed By: #### U LG, CRP #### [facility] [address] [place] [address] Dr. Soo Donnelly MCH (RBC) [Entitic mass] 31.7 pg Normal 26.7-34.0 [facility] Comment on above: Performed By: #### U LG, CRP #### [facility] [address] [place] [address] Dr. Soo Donnelly MCHC (RBC) [Mass/Vol] 32.2 g/dL Normal 29.9-35.2 [facility] Comment on above: Performed By: #### U LG, CRP #### [facility] [address] [place] [address] Dr. Soo Donnelly MCV (RBC) [Entitic vol] 98.3 fL Normal 81.0-99.0 [facility] Comment on above: Performed By: #### U LG, CRP #### [facility] [address] [place] [address] Dr. Soo Donnelly MONO # 0.8 103/ul Normal 0.3-0.8 [facility] Comment on above: Performed By: #### U LG, CRP #### [facility] [address] [place] [address] Dr. Soo Donnelly Monocytes/100 WBC (Bld) 5.6 % Normal 1.7-12.0 [facility] Comment on above: Performed By: #### U LG, CRP #### [facility] [address] [place] [address] Dr. Soo Donnelly NEUT # 9.4 103/ul Critically high 1.4-6.5 [facility] Comment on above: Performed By: #### U LG, CRP #### [facility] [address] [place] [address] Dr. Soo Donnelly Neutrophils/100 WBC (Bld) 65.2 % Normal 43.0-75.0 [facility] Comment on above: Performed By: #### U LG, CRP #### [facility] [address] [place] [address] Dr. Soo Donnelly Platelet mean volume (Bld) [Entitic vol] 10.8 fL Normal 9.5-13.5 [facility] Comment on above: Performed By: #### U LG, CRP #### [facility] [address] [place] [address] Dr. Soo Donnelly PLT 191 103/ul Normal 150-450 [facility] Comment on above: Performed By: #### U LG, CRP #### [facility] [address] [place] [address] Dr. Soo Donnelly RBC 3.63 106/ul Critically low 4.20-5.40 [facility] Comment on above: Performed By: #### U LG, CRP #### [facility] [address] [place] [address] Dr. Soo Donnelly WBC 14.4 103/ul Critically high 4.0-11.0 [facility] Comment on above: Performed By: #### U LG, CRP #### [facility] [address] [place] [address] Dr. Soo Donnelly BUNon 05-17-2022 Urea nitrogen [Mass/Vol] 8.0 mg/dL Normal 7.0-18.0 [facility] Comment on above: Performed By: #### B UN, CREA #### [facility] [address] [place] [address] Dr. Soo Donnelly CBC AUTO DIFFon 05-17-2022 BASO # 0.0 103/ul Normal 0.0-0.1 [facility] Comment on above: Performed By: #### U LG, CRP #### [facility] [address] [place] [address] Dr. Soo Donnelly Basophils/100 WBC (Bld) 0.1 % Critically low 0.2-2.0 [facility] Comment on above: Performed By: #### U LG, CRP #### [facility] [address] [place] [address] Dr. Soo Donnelly EO # 0.0 103/ul Normal 0.0-0.7 [facility] Comment on above: Performed By: #### U LG, CRP #### [facility] [address] [place] [address] Dr. Soo Donnelly Eosinophils/100 WBC (Bld) 0.0 % Critically low 0.9-7.0 [facility] Comment on above: Performed By: #### U LG, CRP #### [facility] [address] [place] [address] Dr. Soo Donnelly Erythrocyte distribution width (RBC) [Ratio] 12.5 % Normal 11.0-15.0 [facility] Comment on above: Performed By: #### U LG, CRP #### [facility] [address] [place] [address] Dr. Soo Donnelly Hematocrit (Bld) [Volume fraction] 38.5 % Normal 36.0-48.0 [facility] Comment on above: Performed By: #### U LG, CRP #### [facility] [address] [address] [address] Soo Donnelly Hemoglobin (Bld) [Mass/Vol] 13.0 g/dL Normal 12.0-16.0 [facility] Comment on above: Performed By: #### U LG, CRP #### [facility] [address] [address] [address] Soo Donnelly IG # 0.16 10e3/ul Critically high 0.00-0.03 [facility] Comment on above: Performed By: #### U LG, CRP #### [facility] [address] [address] [address] Soo Donnelly IG % 0.7 % Critically high 0.0-0.5 [facility] Comment on above: Performed By: #### U LG, CRP #### [facility] [address] [place] [address] Dr. Soo Donnelly LYMPH # 3.0 103/ul Normal 1.2-3.8 [facility] Comment on above: Performed By: #### U LG, CRP #### [facility] [address] [address] [address] Soo Donnelly Lymphocytes/100 WBC (Bld) 12.2 % Critically low 20.5-60.0 [facility] Comment on above: Performed By: #### U LG, CRP #### [facility] [address] [address] [address] Soo Donnelly MANUAL DIFF REQ NO Normal [facility] Comment on above: Performed By: #### U LG, CRP #### [facility] [address] [address] [address] Soo Donnelly MCH (RBC) [Entitic mass] 32.4 pg Normal 26.7-34.0 [facility] Comment on above: Performed By: #### U LG, CRP #### [facility] [address] [address] [address] Soo Donnelly MCHC (RBC) [Mass/Vol] 33.8 g/dL Normal 29.9-35.2 [facility] Comment on above: Performed By: #### U LG, CRP #### [facility] [address] [address] [address] Soo Donnelly MCV (RBC) [Entitic vol] 96.0 fL Normal 81.0-99.0 [facility] Comment on above: Performed By: #### U LG, CRP #### [facility] [address] [place] [address] Dr. Soo Donnelly MONO # 1.3 103/ul Critically high 0.3-0.8 [facility] Comment on above: Performed By: #### U LG, CRP #### [facility] [address] [place] [address] Dr. Soo Donnelly Monocytes/100 WBC (Bld) 5.4 % Normal 1.7-12.0 [facility] Comment on above: Performed By: #### U LG, CRP #### [facility] [address] [place] [address] Dr. Soo Donnelly NEUT # 19.8 103/ul Critically high 1.4-6.5 [facility] Comment on above: Performed By: #### U LG, CRP #### [facility] [address] [place] [address] Dr. Soo Donnelly Neutrophils/100 WBC (Bld) 81.6 % Critically high 43.0-75.0 [facility] Comment on above: Performed By: #### U LG, CRP #### [facility] [address] [place] [address] Dr. Soo Donnelly Platelet mean volume (Bld) [Entitic vol] 10.5 fL Normal 9.5-13.5 [facility] Comment on above: Performed By: #### U LG, CRP #### [facility] [address] [place] [address] Dr. Soo Donnelly PLT 253 103/ul Normal 150-450 [facility] Comment on above: Performed By: #### U LG, CRP #### [facility] [address] [place] [address] Dr. Soo Donnelly RBC 4.01 106/ul Critically low 4.20-5.40 [facility] Comment on above: Performed By: #### U LG, CRP #### [facility] [address] [address] [address] Soo Donnelly WBC 24.3 103/ul Critically high 4.0-11.0 [facility] Comment on above: Performed By: #### U LG, CRP #### [facility] [address] [place] [address] Dr. Soo Donnelly BASO # 0.0 103/ul Normal 0.0-0.1 [facility] Comment on above: Performed By: #### U LG, CRP #### [facility] [address] [place] [address] Dr. Soo Donnelly Basophils/100 WBC (Bld) 0.1 % Critically low 0.2-2.0 [facility] Comment on above: Performed By: #### U LG, CRP #### [facility] [address] [place] [address] Dr. Soo Donnelly EO # 0.0 103/ul Normal 0.0-0.7 [facility] Comment on above: Performed By: #### U LG, CRP #### [facility] [address] [place] [address] Dr. Soo Donnelly Eosinophils/100 WBC (Bld) 0.0 % Critically low 0.9-7.0 [facility] Comment on above: Performed By: #### U LG, CRP #### [facility] [address] [place] [address] Dr. Soo Donnelly Erythrocyte distribution width (RBC) [Ratio] 12.3 % Normal 11.0-15.0 [facility] Comment on above: Performed By: #### U LG, CRP #### [facility] [address] [place] [address] Dr. Soo Donnelly Hematocrit (Bld) [Volume fraction] 41.2 % Normal 36.0-48.0 [facility] Comment on above: Performed By: #### U LG, CRP #### [facility] [address] [place] [address] Dr. Soo Donnelly Hemoglobin (Bld) [Mass/Vol] 13.5 g/dL Normal 12.0-16.0 [facility] Comment on above: Performed By: #### U LG, CRP #### [facility] [address] [address] [address] Soo Donnelly IG # 0.11 10e3/ul Critically high 0.00-0.03 [facility] Comment on above: Performed By: #### U LG, CRP #### [facility] [address] [address] [address] Soo Donnelly IG % 0.5 % Normal 0.0-0.5 [facility] Comment on above: Performed By: #### U LG, CRP #### [facility] [address] [place] [address] Dr. Soo Donnelly LYMPH # 1.6 103/ul Normal 1.2-3.8 [facility] Comment on above: Performed By: #### U LG, CRP #### [facility] [address] [place] [address] Dr. Soo Donnelly Lymphocytes/100 WBC (Bld) 7.8 % Critically low 20.5-60.0 [facility] Comment on above: Performed By: #### U LG, CRP #### [facility] [address] [place] [address] Dr. Soo Donnelly MANUAL DIFF REQ NO Normal [facility] Comment on above: Performed By: #### U LG, CRP #### [facility] [address] [place] [address] Dr. Soo Donnelly MCH (RBC) [Entitic mass] 31.8 pg Normal 26.7-34.0 [facility] Comment on above: Performed By: #### U LG, CRP #### [facility] [address] [place] [address] Dr. Soo Donnelly MCHC (RBC) [Mass/Vol] 32.8 g/dL Normal 29.9-35.2 [facility] Comment on above: Performed By: #### U LG, CRP #### [facility] [address] [place] [address] Dr. Soo Donnelly MCV (RBC) [Entitic vol] 96.9 fL Normal 81.0-99.0 [facility] Comment on above: Performed By: #### U LG, CRP #### [facility] [address] [place] [address] Dr. Soo Donnelly MONO # 0.4 103/ul Normal 0.3-0.8 [facility] Comment on above: Performed By: #### U LG, CRP #### [facility] [address] [place] [address] Dr. Soo Donnelly Monocytes/100 WBC (Bld) 2.0 % Normal 1.7-12.0 [facility] Comment on above: Performed By: #### U LG, CRP #### [facility] [address] [place] [address] Dr. Soo Donnelly NEUT # 18.1 103/ul Critically high 1.4-6.5 [facility] Comment on above: Performed By: #### U LG, CRP #### [facility] [address] [place] [address] Dr. Soo Donnelly Neutrophils/100 WBC (Bld) 89.6 % Critically high 43.0-75.0 [facility] Comment on above: Performed By: #### U LG, CRP #### [facility] [address] [place] [address] Dr. Soo Donnelly Platelet mean volume (Bld) [Entitic vol] 11.0 fL Normal 9.5-13.5 [facility] Comment on above: Performed By: #### U LG, CRP #### [facility] [address] [place] [address] Dr. Soo Donnelly PLT 223 103/ul Normal 150-450 [facility] Comment on above: Performed By: #### U LG, CRP #### [facility] [address] [place] [address] Dr. Soo Donnelly RBC 4.25 106/ul Normal 4.20-5.40 [facility] Comment on above: Performed By: #### U LG, CRP #### [facility] [address] [place] [address] Dr. Soo Donnelly WBC 20.2 103/ul Critically high 4.0-11.0 [facility] Comment on above: Performed By: #### U LG, CRP #### [facility] [address] [address] [address] Soo Donnelly CREATININEon 05-17-2022 Creatinine [Mass/Vol] 0.97 mg/dL Normal 0.55-1.02 [facility] Comment on above: Performed By: #### B UN, CREA #### [facility] [address] [address] [address] Soo Donnelly EGFR-AF SWEDISH >60 Normal >=60 [facility] Comment on above: Performed By: #### B UN, CREA #### [facility] [address] [address] [address] Soo Donnelly EGFR-NON AF SWEDISH >60 Normal >=60 [facility] Comment on above: Performed By: #### B UN, CREA #### [facility] [address] [address] [address] Soo Donnelly CTA CHEST WO W [...] ELENA SAUCEDA Date: 2022-05-17 16:40 Normal [facility] XR CHEST 2 Von 05-17-2022 XR [...] SAMI JONES Date: 2022-05-17 16:10 Normal [facility] CBC AUTO DIFFon 05-16-2022 BASO # 0.1 103/ul Normal 0.0-0.1 [facility] Comment on above: Performed By: #### B , CREA #### [facility] [address] [place] [address] Dr. Soo Donnelly Basophils/100 WBC (Bld) 0.5 % Normal 0.2-2.0 [facility] Comment on above: Performed By: #### B , CREA #### [facility] [address] [place] [address] Dr. Soo Donnelly EO # 0.1 103/ul Normal 0.0-0.7 [facility] Comment on above: Performed By: #### B , CREA #### [facility] [address] [place] [address] Dr. Soo Donnelly Eosinophils/100 WBC (Bld) 1.0 % Normal 0.9-7.0 [facility] Comment on above: Performed By: #### B UN, CREA #### [facility] [address] [place] [address] Dr. Soo Donnelly Erythrocyte distribution width (RBC) [Ratio] 12.2 % Normal 11.0-15.0 [facility] Comment on above: Performed By: #### B JOANNA, CREA #### [facility] [address] [place] [address] Dr. Soo Donnelly Hematocrit (Bld) [Volume fraction] 41.2 % Normal 36.0-48.0 [facility] Comment on above: Performed By: #### B UN, CREA #### [facility] [address] [place] [address] Dr. Soo Donnelly Hemoglobin (Bld) [Mass/Vol] 13.9 g/dL Normal 12.0-16.0 [facility] Comment on above: Performed By: #### B UN, CREA #### [facility] [address] [place] [address] Dr. Soo Donnelly IG # 0.04 10e3/ul Critically high 0.00-0.03 [facility] Comment on above: Performed By: #### B UN, CREA #### [facility] [address] [place] [address] Dr. Soo Donnelly IG % 0.4 % Normal 0.0-0.5 [facility] Comment on above: Performed By: #### B UN, CREA #### [facility] [address] [place] [address] Dr. Soo Donnelly LYMPH # 3.5 103/ul Normal 1.2-3.8 [facility] Comment on above: Performed By: #### B UN, CREA #### [facility] [address] [place] [address] Dr. Soo Donnelly Lymphocytes/100 WBC (Bld) 35.3 % Normal 20.5-60.0 [facility] Comment on above: Performed By: #### B UN, CREA #### [facility] [address] [place] [address] Dr. Soo Donnelly MANUAL DIFF REQ NO Normal [facility] Comment on above: Performed By: #### B UN, CREA #### [facility] [address] [place] [address] Dr. Soo Donnelly MCH (RBC) [Entitic mass] 31.7 pg Normal 26.7-34.0 [facility] Comment on above: Performed By: #### B UN, CREA #### [facility] [address] [place] [address] Dr. Soo Donnelly MCHC (RBC) [Mass/Vol] 33.7 g/dL Normal 29.9-35.2 [facility] Comment on above: Performed By: #### B UN, CREA #### [facility] [address] [place] [address] Dr. Soo Donnelly MCV (RBC) [Entitic vol] 94.1 fL Normal 81.0-99.0 [facility] Comment on above: Performed By: #### B UN, CREA #### [facility] [address] [place] [address] Dr. Soo Donnelly MONO # 0.5 103/ul Normal 0.3-0.8 [facility] Comment on above: Performed By: #### B UN, CREA #### [facility] [address] [place] [address] Dr. Soo Donnelly Monocytes/100 WBC (Bld) 5.4 % Normal 1.7-12.0 [facility] Comment on above: Performed By: #### B UN, CREA #### [facility] [address] [place] [address] Dr. Soo Donnelly NEUT # 5.6 103/ul Normal 1.4-6.5 [facility] Comment on above: Performed By: #### B UN, CREA #### [facility] [address] [place] [address] Dr. Soo Donnelly Neutrophils/100 WBC (Bld) 57.4 % Normal 43.0-75.0 [facility] Comment on above: Performed By: #### B UN, CREA #### [facility] [address] [place] [address] Dr. Soo Donnelly Platelet mean volume (Bld) [Entitic vol] 10.3 fL Normal 9.5-13.5 [facility] Comment on above: Performed By: #### B UN, CREA #### [facility] [address] [place] [address] Dr. Soo Donnelly PLT 235 103/ul Normal 150-450 [facility] Comment on above: Performed By: #### B UN, CREA #### [facility] [address] [address] [address] Soo Donnelly RBC 4.38 106/ul Normal 4.20-5.40 [facility] Comment on above: Performed By: #### B UN, CREA #### [facility] [address] [address] [address] Soo Donnelly WBC 9.8 103/ul Normal 4.0-11.0 [facility] Comment on above: Performed By: #### B UN, CREA #### [facility] [address] [address] [address] Soo Donnelly PREG QUANT HCGon 05-16-2022 HCG QUANT <1 Normal [facility] Comment on above: Performed By: #### U LG, CRP #### [facility] [address] [address] [address] Soo Donnelly HCG RANGE SEE BELOW Normal [facility] Comment on above: Result Comment: 5-50 0-1 WEEK 40-300 1-2 WEEKS 100-1,000 2-3 WEEKS 500-6,000 3-4 WEEKS 5,000-200,000 1-2 MONTHS 10,000-100,000 2-3 MONTHS 3,000-50,000 2ND TRIMESTER 1,000-50,000 3RD TRIMESTER Performed By: #### U LG, CRP #### [facility] [address] [place] [address] Dr. Soo Donnelly Covid-19 PCR (CVDTBH)on 05-01 SARS-CoV-2 (COVID-19) RNA NOLA+probe Ql (Unsp spec) Not detected Normal NOT DETECTED [facility] Comment on above: Result Comment: This test is not yet approved or cleared by the [place] FDA. When there are no FDA-approved or cleared tests available, and other criteria are met, FDA can make tests available under an emergency access mechanism called an Emergency Use Authorization (EUA). The EUA for this test is supported by the [employer] Database Developer of Health and Human Service's (HHS's) declaration [...] SARS-CoV-2. Performed By: #### C VDTBH #### [facility] [address] [place] [address] Dr. Soo Donnelly TYPE AND SCREENon 05-13-2022 TYPE AND SCREEN Negative Normal [facility] Comment on above: Performed By: #### B UN, CREA #### [facility] [address] [place] [address] Dr. Soo Donnelly PAP ACOG PANEL 2: 30 to 65on 05-07-2022 . . Normal [facility] Comment on above: Result Comment: Perf ormed at: WB Performed By: #### [id number] #### [facility] [address] [place] [address] Dr. Soo Donnelly Age Gdln ACOG Testing 30-65 Normal [facility] Comment on above: Performed By: #### [id number] #### [facility] [address] [place] [address] Dr. Soo Donnelly DIAGNOSIS: Comment Normal [facility] Comment on above: Result Comment: NEGA TIVE FOR INTRAEPITHELIAL LESION OR MALIGNANCY. Performed at: WB Performed By: #### [id number] #### [facility] [address] [place] [address] Dr. Soo Donnelly HPV Aptima Negative Normal Negative [facility] Comment on above: Result Comment: This nucleic acid amplification test detects fourteen high-risk HPV types (16,18,31,33,35,39,45,51,52,56,58,59,66,68) without differentiation. Performed at: =G Performed By: #### [id number] #### [facility] [address] [place] [address] Dr. Soo Donnelly Methodology: Comment Normal [facility] Comment on above: Result Comment: This liquid based ThinPrep(R) pap test was screened with the use of an image guided system. Performed at: WB Performed By: #### [id number] #### [facility] [address] [place] [address] Dr. Soo Donnelly Note: Comment Normal [facility] Comment on above: Result Comment: The Pap smear is a screening test designed to aid in the detection of premalignant and malignant conditions of the uterine cervix. It is not a diagnostic procedure and should not be used as the sole means of detecting cervical cancer. Both false-positive and false-negative reports do occur. . Performed at: WB Performed By: #### [id number] #### [facility] [address] [place] [address] Dr. Soo Donnelly Performed by: Comment Normal [facility] Comment on above: Result Comment: Angel Rod, Manager Universal (ASCP) Performed at: WB Performed By: #### [id number] #### [facility] [address] [place] [address] Dr. Soo Donnelly Specimen adequacy: Comment Normal [facility] Comment on above: Result Comment: Sati sfactory for evaluation. Endocervical and/or squamous metaplastic cells (endocervical component) are present. Performed at: WB Performed By: #### [id number] #### [facility] [address] [place] [address] Dr. Soo Donnelly ROSS by IFAon 02-21-2022 Antinuclear Antibodies, IFA Negative [facility] Comment on above: Result Comment: Nega tive <1:80 Borderline 1:80 Positive >1:80 ICAP nomenclature: [id number] For more information about Hep-2 cell patterns use ANApatterns.org, the official website for the International Consensus on Antinuclear Antibody (ROSS) Patterns (ICAP). Performed By: #### U LG, CRP #### [facility] [address] [place] [address] Dr. Soo Donnelly ROSS DIRECTon 03-23-2022 ROSS Direct Negative Normal Negative [facility] Comment on above: Performed By: #### A NAD #### [facility] [address] [place] [address] Dr. Soo Donnelly ANTISTREPTOLYSIN O AB (ASO)o n 02-20-2022 Antistreptolysin O Ab 115.3 IU/mL Normal 0.0-200.0 Th [facility] Comment on above: Performed By: #### B UN, CREA #### [facility] [address] [place] [address] Dr. Soo Donnelly C3 and C4 COMPLEMENTon 02-20 Complement C3, Serum 137 mg/dL Normal 82-167 [facility] Comment on above: Performed By: #### U LG, CRP #### [facility] [address] [place] [address] Dr. Soo Donnelly Complement C4, Serum 23 mg/dL Normal 12-38 [facility] Comment on above: Performed By: #### U LG, CRP #### [facility] [address] [place] [address] Dr. Soo Donnelly SLE PROFILE Aon 02-20-2022 Anti-DNA (DS) Ab Qn <1 Normal 0-9 [facility] Comment on above: Result Comment: Nega tive <5 Equivocal 5 - 9 Positive >9 Performed By: #### S YARI #### [facility] [address] [place] [address] Dr. Soo Donnelly Antichromatin Antibodies <0.2 Normal 0.0-0.9 [facility] Comment on above: Performed By: #### S YARI #### [facility] [address] [place] [address] Dr. Soo Donnelly RA Latex Turbid. <10.0 Normal <14.0 [facility] Comment on above: Performed By: #### S YARI #### [facility] [address] [place] [address] Dr. Soo Donnelly FRENCH TEACHER Antibodies <0.2 Normal 0.0-0.9 [facility] Comment on above: Performed By: #### S YARI #### [facility] [address] [place] [address] Dr. Soo Donnelly Sjogren's Anti-SS-A <0.2 Normal 0.0-0.9 [facility] Comment on above: Performed By: #### S YARI #### [facility] [facility] [address] [place] [address] Dr. Soo Donnelly Sjogren's Anti-SS-B <0.2 Normal 0.0-0.9 [facility] Comment on above: Performed By: #### S YARI #### [facility] [address] [place] [address] Dr. Soo Donnelly Spann Antibodies <0.2 Normal 0.0-0.9 [facility] Comment on above: Performed By: #### S YARI #### [facility] [address] [place] [address] Dr. Soo Donnelly CRPon 02-19-2022 CRP [Mass/Vol] mg/L Normal <=1.0 [facility] Comment on above: Performed By: #### U LG, CRP #### [facility] [address] [place] [address] Dr. Soo Donnelly URIC ACID SERUMon 02-19-2022 Urate [Mass/Vol] 4.7 mg/dL Normal 2.5-6.2 [facility] Comment on above: Performed By: #### U LG, CRP #### [facility] [address] [place] [address] Dr. Soo Donnelly XR CSPINE MIN 4 [...] ABIGAIL SHEEHAN Date: 2022-02-19 16:33 Normal [facility] XR HAND DEAN MIN 3Von 022 [...] ABIGAIL SHEEHAN Date: 2022-02-19 16:28 Normal [facility] ASYMPTOMATIC COVID-19 ANTIGE Non 12-04-2021 EUA Statement SEE BELOW Normal [facility] Comment on above: Result Comment: [...] sooner. Performed By: #### C VDAGA #### [facility] [address] [place] [address] Dr. Soo Donnelly SARS-CoV-2 (COVID-19) RNA NOLA+probe Ql (Unsp spec) Negative Normal NEGATIVE [facility] Comment on above: Result Comment: Nega tive results are presumptive. They do not preclude infection and should not be used as the sole basis for treatment decisions. Additional confirmatory testing by a molecular method should be considered. Performed By: #### C VDAGA #### [facility] [address] [place] [address] [id number] [address] Soo Donnelly Covid-19 PCR (CVDTB)on SARS-CoV-2 (COVID-19) RNA NOLA+probe Ql (Unsp spec) Not detected Normal NOT DETECTED [facility] Comment on above: Result Comment: This test is not yet approved or cleared by the [place] FDA. When there are no FDA-approved or cleared tests available, and other criteria are met, FDA can make tests available under an emergency access mechanism called an Emergency Use Authorization (EUA). The EUA for this test is supported by the Mysql Database Developer of Health and Human Service's (HHS's) declaration [...] Performed By: #### U LG, CRP #### [facility] [address] [place], [place] [id number] Dr. Soo Donnelly Vital Signs Date Time Vital Sign Value Performing Clinician Facility 11-01-2022 15:19-0500 Blood Pressure Location [facility] 11-01-2022 15:19-0500 Diastolic blood pressure 80 mm[Hg] Nicola Arigo [facility] 11-01-2022 15:19-0500 Heart rate 72 /min Nicola Arigo [facility] 11-01-2022 15:19-0500 Respiratory rate 16 /min Nicola CANDELARIOPopUp [facility] 11-01-2022 15:19-0500 Systolic blood pressure 118 mm[Hg] Nicola NILL [facility] [place] 10-01-2022 16:30-0400 Body height 170.18 cm Clarice Scally Other [facility] Other 10-01-2022 16:30-0400 Body mass index (BMI) [Ratio] 32.84 kg/m2 Clarice Scally Other [facility] Other 10-01-2022 16:30-0400 Body weight 95.12 kg Clarice Scally Other [facility] Other 10-01-2022 16:30-0400 Diastolic blood pressure 82 mm[Hg] Clarice Scally Other [facility] Other 10-01-2022 16:30-0400 Respiratory rate 18 /min Clarice Scally Other [facility] Other 10-01-2022 16:30-0400 SaO2% (BldA) [Mass fraction] 97 % Clarice Scally Other [facility] Other 10-01-2022 16:30-0400 Systolic blood pressure 116 mm[Hg] Clarice Scally Other [facility] Other 08-28-2022 14:30-0400 Body height 170.18 cm Nahid Mccoy Other [facility] Other 08-28-2022 14:30-0400 Body mass index (BMI) [Ratio] 34.55 kg/m2 Nahid Mccoy Other [facility] Other 08-28-2022 14:30-0400 Body weight 100.06 kg Nahid Mccoy Other [facility] Other 08-28-2022 14:30-0400 Diastolic blood pressure 82 mm[Hg] Nahid Mccoy Other [facility] Other 08-28-2022 14:30-0400 Respiratory rate 18 /min Nahid Mccoy Other [facility] Other 08-28-2022 14:30-0400 SaO2% (BldA) [Mass fraction] 97 % Nahid Mccoy Other [facility] Other 08-28-2022 14:30-0400 Systolic blood pressure 121 mm[Hg] Nahid Mccoy Other [facility] Other Encounters Encounter Date Encounter Type Care [...] End: 09-20-2024 ambulatory [facility] Start: 09-09-2024 End: 09-09-2024 ambulatory Carol Webb PT Work Phone: [facility] Comment on above: Neck pain (Primary D x); Chronic bilateral low back pain with bilateral sciatica Start: 09-09-2024 End: 09-09-2024 Bamboo flowsheet Carol Webb PT Work Phone: [facility] Start: 09-09-2024 End: 09-09-2024 Bamboo flowsheet Carol Blandach PT Work Phone: [facility] Start: 08-30-2024 End: 08-30-2024 Departed Referred [facility] [address] Work Phone: Start: 08-30-2024 End: 08-30-2024 ambulatory NON STAFF [facility] Work Phone: Start: 04-05-2024 End: 04-05-2024 ambulatory DELGADO DIGGSZIO Not Available Start: 03-15-2024 End: 03-15-2024 Emergency department patient visit Nicola Kaelyn Neff Facility:[facility] Start: 10-22-2023 End: 10-22-2023 ambulatory JESSICA SANCHEZ Not Available Start: 08-15-2023 End: 08-15-2023 ambulatory NON STAFF [facility] Work Phone: Start: 08-15-2023 End: 08-15-2023 [facility] [address] Work Phone: Start: 12-05-[address] SAMI MARINELLI Facility :[facility] Start: 11-09-2022 End: 11-10-[address] DOCTOR STEIN Facility:[facility] Start: 11-01-2022 End: 11-02-2022 ambulatory Nicola BUCHANAN Facility: [place] Start: 11-01-2022 End: 11-01-2022 Patient encounter procedure Nicola BUCHANAN [facility] [place] Start: 10-29-2022 End: 10-29-2022 ambulatory Clarice Hull Other [facility] [employer] Other Start: 10-29-2022 Telephone encounter Clarice [facility] Start: 10-14-2022 End: 10-14-2022 ambulatory Clarice Aldomegan Other [facility] Other Start: 10-14-2022 Telephone encounter Clarice [facility] Start: 10-04-2022 ambulatory Nicola CANDELARIOHamida Facility:[facility] Start: 10-01-2022 (FCCCWMNF/U) Weight Management f/u Clarice Hull [facility] Start: 10-01-2022 End: 10-02-[address] LUZ ELENA SAUCEDA [facility] Other Start: 09-19-2022 End: 09-19-2022 ambulatory Nahid Mccoy Other [facility] Other Start: 09-19-2022 Telephone encounter Nahid [facility] Start: 09-18-2022 End: 09-18-[address] LUZ ELENA SAUCEDA Facility:[facility] Start: 09-12-2022 End: 09-13-[address] ABIGAIL SHEEHAN Facility:[facility] Start: 08-28-2022 End: 08-28-2022 ambulatory Nahid Mccoy Other [facility] [employer] Other Start: 08-28-2022 Nutrition therapy Nahid Mccoy [facility] Start: 07-22-2022 Encounter for genera l adult medical examination without abnormal findings DR SAMI MARINELLI [facility] Start: 07-19-2022 End: 07-20-2022 ambulatory [...] for preprocedural laboratory examination DR DELGADO MURILLO [facility] Start: 05-13-2022 End: 05-14-[address] DELGADO MURILLO Facility:[facility] Start: 05-13-2022 End: 05-14-2022 Encounter for preprocedural laboratory examination DR DELGADO MURILLO Facility:[facility] Start: 05-11-2022 Encounter for preprocedural cardiovascular examination DR DELGADO MURILLO [facility] Start: 05-08-2022 End: 05-09-2022 ambulatory [...] Screening for malign ant neoplasm of colon [facility] Start: 10-23-2028 Screening for malign ant neoplasm of cervix [facility] Start: 11-27-2024 Screening for malign ant neoplasm of breast Mammogram [facility] Start: 11-22-2024 End: 11-22-2024 Patient encounter procedure 11/22/2024 1:00 PM EST Office Visit [facility] [address] [place] [address] Delgado Murillo DO [address], [place] [address] [facility] Start: 09-27-2024 End: 09-27-2024 Patient encounter procedure 09/27/2024 3:10 PM EDT Office Visit [facility] [address] [place] [address] Delgado Murillo DO [address] [facility] [place] [address] Arrived [facility] Comment on above: Arrived Start: 09-09-2024 End: 09-09-2024 ambulatory 09/09/2024 4:00 PM EDT Evaluation [facility] [address] [place] [address] Carol Webb, PT [address] [place] [address] Arrived [facility] Comment on above: Arrived Start: 08-01-2024 Influenza vaccination Influenza Vacc ine (#1) [facility] Start: 1975 Screening for malign ant neoplasm of colon [facility] Immunizations Immunization Date Immunization Notes Care Provider Fa cility NEGATED: Highlighted row has not occurred!11-01-2022 influenza virus vaccine, unspecified formulation Nicola BUCHANAN [facility] [place] Payers Date Payer Category Payer Self-pay [id number] 2023 Private Health Insurance [employer] [id number] 2023 Unknown [id number]. 1.13.693.2. [id number] 1976 Unknown [id number] 2.16.840.1.691316.3.579.2. 727 1976 Unknown [id number] 2.16.840.1.497658.3.579.2. 593 1976 Unknown [id number] 2.16.840.1.778805.3.579.2. 593 1976 Unknown [id number] 2.16.840.1.580355.3.579.2. 593 1976 Unknown [id number] 2.16.840.1.354622.3.579.2. 59 1976 Unknown [id number] 2.16.840.1.534122.3.579.2. 59 1976 Unknown [id number] 2.16.840.1.875536.3.579.2 59 1976 Unknown [id number] 2.16.840.1.117394.3.579.2. 59 1976 Unknown [id number] 2.16.840.1.398341.3.579.2. 59 1976 Unknown [id number] 2.16.840.1.970505.3.579.2. 59 1976 Unknown [id number] 2.16.840.1.696579.3.579.2. 593 1976 Unknown [id number] 2.16.840.1.009872.3.579.2. 59 1976 Unknown [id number] 2.16.840.1.139355.3.579.2. 593 1976 Unknown [id number] 2.16.840.1.618121.3.579.2. 593 1976 Unknown [id number] 2.16.840.1.531734.3.579.2 59 1976 Unknown [id number] 2.16.840.1.512982.3.579.2. 718 1976 Unknown [id number] 2.16.840.1.237133.3.579.2. 9 1976 Unknown [id number] 2.16.840.1.304625.3.579.2. 9 1976 Unknown [id number] 2.16.840.1.855638.3.579.2. 9 1976 Unknown [id number] 2.16.840.1.743582.3.579.2. 9 1976 Unknown [id number] 2.16.840.1.464621.3.579.2. 196 1976 Unknown [id number] 2.16.840.1.762258.3.579.2. 196 1959 Self-pay [id number] 1959 Unknown [id number] 2.16.840.1.395925.19 Unknown [id number] 2.16.840.1.463730.3.579.2. 531 Social History Date Type Detail Facility Unknown if ever smoked [facility] Other Start: 06-25-2023 End: 10-20-2023 Sex Assigned At [facility] Start: 11-01-2022 Tobacco smoking status Ex-smoker (fi nding) [facility] [place] Tobacco smoking status Former sm okeless tobacco user, quit more than 30 days ago [facility] [place] Start: 1975 Sex Assigned At Female [facility] Start: 06-25-2023 Tobacco smoking stat [place] [...] 4 times a month; Caffeine: 1-2 cups/day [facility] Start: 1975 Sex assigned at Not on file N [facility] Healthcare Functional Status Date Assessment Result Facility [...] No resulting surgeries. 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 Also notes poor balance with no diagnosed [...] sign below. Date: documented in this encounter [facility] 03-15-2024 Note Education Materials Cardiovascular Hypertension, Adult [...] Keep all follow-up visits. Medicines ? Take datb-dwe-zcpddal and prescription medicines only as told by [...] work harder to (more content not included)... [facility] 11-25-2022 Note Chief Complaint consultation for [...] - Denies A (more content not included)... [facility] Comment on above: Result Comment: Elec [...] was counseling done by myself, Ann ANGLIN. [facility] Other 09-28-2022 Evaluation note* Encounter Date Diagnosis Assessment Notes Treatment Notes Treatment Clinical Notes Aug, Abnormal weight gain (ICD-10 - R63.5) Aug, Prediabetes (ICD-10 - R73.03) Aug, Mixed hyperlipidemia (ICD-10 - E78.2) Aug, Hypertension (ICD-10 - I10) Aug, Obstructive sleep apnea (ICD-10 - G47.33) Aug, GERD (gastroesophageal reflux disease) (ICD-10 - K21.9) Aug, Metabolic syndrome X (ICD-10 - E88.81) [facility] [employer] Other 06-16-2022 NoteDISCHARGE SUMMARY DISCHARGE DATE: 05/18/2022 [...] pain free and no longer on narcotics. [facility] Signed and Approved by: DR DELGADO MURILLO . 05/20/2022 07:51:00[id number] NoteThe [place], [place] NAME: HORACIO PUGH Tommie DATE OF : MEDICAL REC#: [id number] MARINE TOWER OPERATOR: 1602 LORENA LEE ADMIT DATE: 05/16/2022 11:05:00 ROENTGENOLOGY TEACHER DATE: 05/17/2022 21:20 DICTATING PHYSICIAN: DELGADO MURILLO DICTATION DATE: 05/16/2022 15:02 OP Note OPERATION DATE: 05/16/2022 PROCEDURE: Supracervical hysterectomy with left salpingo-oophorectomy with right salpingectomy and right ovarian cystotomy of approximately 3 cm cyst. SURGEON: Delgado Murillo D.O. CO PILOT: SHUKRI Bailon URINE OUTPUT: Yellow and clear. [...] Approved by: DR DELGADO MURILLO . 05/23/2022 10:30:00[facility] No data available for this section [facility] [place] Evaluation noteNo InformationNort [facility] [employer] [facility] Other Evaluation noteNo assessment information available [facility] Work Phone: Evaluation note* Diagnosis Neck [...] History TMJ surgery Hospitalization History see above [facility] Other [facility] general Narrative - Reported* Type Description Date [...] ER-abd . pain [facility] 09/18/22 [facility] Other Hospital Discharge instructions No data available [...] Therapy Diagnoses Other spondylosis, lumbar region Procedures [place] PHYS THERAPY EVALUATION Edwige Magaña MD [address] [place] [address] Carol Webb, PT [address] [place] [address] Referral ID Status Reason Start Date Expiration Date V isits Requested Visits Authorized [id number] Authorized 09/02/2024 03/01/2025 40 40 Patient Care [...] End: August 30, 2024 Dedrick Fuller - [facility] DO [facility] Attending Provider Active Start: August 30, 2024 End: August 30, 2024 Mend Worker Relationship Specialty Start Date End Date Sami Marinelli MD [address] [place] [address] PCP - General Family Medicine 06/26/23 Mend Worker Relationship Specialty Start Date End Date Sami Marinelli MD [address] [place] [address] PCP - General Family Medicine 06/26/23 INFORMATION SOURCE (unrecogn ized section and content) DATE CREATED AUTHOR 11/26/2022 [facility] DATE CREATED AUTHOR AUTHOR'S ORGANIZ ATION 12/03/2022 [facility] pital DATE CREATED AUTHOR AUTHOR'S ORGANIZ ATION 03/21/2024 [facility] DATE CREATED AUTHOR AUTHOR'S ORGANIZ ATION 08/31/2024 [facility] DATE CREATED AUTHOR AUTHOR'S ORGANIZ ATION 09/28/2024 [facility] EPIC DATE CREATED AUTHOR AUTHOR'S ORGANIZ ATION 10/09/2024 [facility] Goals (unrecognized section and content) Goals may [...] BE BASED ON THE PRIMARY CLINICAL RECORDS. [facility]. provides no warranty or guarantee of the accuracy or completeness of information in this document.
== END 2024-10-13 07:00 | disposition home or self-care (01) ==
LOC: US 06:59
PROVIDERS: PCP Family Medicine; Visit Provider Family Medicine
DX: R53.83 Other fatigue (principal); R74.8 Abnormal levels of other serum enzymes; Z90.49 Acquired absence of other specified parts of digestive tract; N28.1 Cyst of kidney, acquired; R10.11 Right upper quadrant pain; M25.50 Pain in unspecified joint
CPT/HCPCS: 36415; 76705; 80053; 80074; 84403; 84550; 86038; 86060; 86140; 86431

== ENCOUNTER 2024-10-13 07:34 | Outpatient (OUT) | payer OTHER, SELFPAY ==
--- OUTSIDE RECORDS SUMMARY | 2024-10-13 07:39 | XMS_ITS | CCD ---
Author Organization [facility] CliniSynh Care Team Providers Care Commercial Glazier Name Role Phone Nahid Mccoy Unavailable Clarice [...] Care Unavailable LIDIA, DR CHAVARRIA Attending Unavailable ILDIA, DR CHAVARRIA Admitting Unavailable LIDIA, DR CHAVARRIA [...] Attending Unavailable LUL, DR GALLARDO Admitting Unavailable LLU, DR GALLARDO Consulting Unavailable HOY, DR GALLARDO [...] Provider UnavailDO Dedrick Alfaro Attending Provider Nicola eNff Attending Unavailab Nicola Anderson Admitting Unavailab SAMI Matos Primary Care Unavailable NON STAFF Primary Care Provider Unavailsalome [facility] Attending Provider Alina [facility] NON STAFF Primary Care Unavailable Sami Marinelli MD Primary Care Provider [phone] JESSICA SANCHEZ Attending Unavailable DELGADO MURILLO Attending Unavailable CAROL WEBB Attending Unavailable EDWIGE MAGAÑA Referring Unavailable DELGADO MURILLO Attending Unavailable Marek BURK, Hebert Rock Attending Unavailable Marek BURK, Hebert Rock Attending Unavailable Allergies Allergy Classification Reported Allergen(s) Allergy Type Date of Onset Reaction(s) Facility (7 sources) NITROFURANTOIN, MACROCRYSTALS / Nitrofurantoin, Monohydrate; 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: [nitrofurantoin] Drug Allergy Neck swelling (finding) [facility] (1 source) Albuterol Drug Allergy [facility] Comment on above: NEED TO CUT DOWN ADR ENALIN TO PREVENT SEIZURES (2 sources) Bee/Wasp/Ant venom; 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: [Bee Stings] Allergy to substance Nausea, Swelling [facility] (1 source) PECANS 1 Food allergy [facility] Comment on above: AIRWAY CONSTRICTION (5 sources) Albuterol; 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: [albuterol] Drug Allergy 06-26-20 23 Other [facility] Repository (1 source) Egg; 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: [Eggs] Food allergy (disorder) [facility] Repository (4 sources) Nitrofurantoin; 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: [Macrobid] Drug Allergy 05-02-20 12 [facility] Repository (1 source) PECANS; 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: [PECANS] Food allergy (disorder) [facility] Repository (2 sources) bee venom Drug allergy (disorder) 06-09-20 15 [facility] Repository (2 sources) egg extract Drug Allergy 06-09-20 15 [facility] Repository (2 sources) pecan pollen extract Drug Allergy [facility] Repository (2 sources) tree nut, unspecified Drug allergy (disorder) 06-09-20 15 [facility] Repository (1 source) Nitrofurantoin Drug Allergy 10-01-20 [facility] Repository (3 sources) Honey bee venom Allergy to substance 04-05-[address] [facility] (3 sources) Nitrofurantoin Drug Allergy 05-01-[address] [facility] (3 sources) Nitrofurantoin Drug Allergy 04-05-20 24 [facility] (3 sources) Egg-Derived Products Drug Allergy 04-05-20 24 [facility] (3 sources) Other Propensity to adverse reactions 05-13-20 05 [facility] Medications Current Medications Medication Drug [...] Active Start: 10-30-2022 take 1 tablet by [facility] once daily meloxicam 15 mg Tab 15 [...] 10/30/22 Status: Ordered take 1 capsule by [facility] every twenty-four hours Omeprazole 40 MG [...] Chronic Other aftercare (1 source) 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; 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] Onset: 2 Episodic Other [...] MDRD (S/P/Bld) [Vol rate/Area] mL/min/{1.73_m2} Normal [facility] Comment on above: Performed By: #### L IPID, BMP #### [facility] [address] [place] [address] [place] Calcium [Mass/volume] in Ser um or PlasmaOrdered By: Dedrick Fuller on 08-30-2024 Calcium [Mass/Vol] 9.9 mg/dL Normal 8.6-10.3 [facility] Comment on above: Performed By: #### L IPID, BMP #### [facility] [address] [place] [id number] [place] Carbon dioxide, total [Moles /volume] in Serum or PlasmaOrdered By: Dedrick Fuller on 08-30-2024 CO2 [Moles/Vol] 26.6 mmol/L Normal 21.0-31.0 [facility] Comment on above: Performed By: #### L IPID, BMP #### [facility] [address] [place] [id number] [place] Chloride [Moles/volume] in S altagracia or PlasmaOrdered By: Dedrick Fuller on 08-30-2024 Chloride [Moles/Vol] 104 mmol/L Normal 98-107 [facility] Comment on above: Performed By: #### L IPID, BMP #### [facility] [address] [place] [address] [place] Cholesterol [Mass/volume] in Serum or PlasmaOrdered By: Dedrick Fuller on 08-30-2024 Cholesterol [Mass/Vol] 218 mg/dL High 140-200 [facility] Comment on above: Chol less than 200 m g/dl low riskChol 201-239 mg/dl borderline riskChol 240 mg/dl and greater high risk Result Comment: Chol less than 200 mg/dl low risk Chol 201-239 mg/dl borderline risk Chol 240 mg/dl and greater high risk Performed By: #### L IPID, BMP #### [facility] [address] Cholesterol in LDL Calc [Mas s/Vol]Ordered By: Dedrick Fuller on 08-30-2024 Cholesterol in LDL [Mass/Vol] 134 mg/dL High 0-100 [facility] Comment on above: LDL ATP III CLASSIFI CATIONLDL less than 100 mg/dL OptimalLDL 100-129 mg/dL Near or above optimalLDL 130-159 mg/dL Borderline highLDL 160-189 mg/dL HighLDL greater than 189 mg/dL Very high Cholesterol in VLDL Calc [Ma ss/Vol]Ordered By: Dedrick Fuller on 08-30-2024 Cholesterol in VLDL [Mass/Vol] 46 mg/dL [facility] Creatinine [Mass/volume] in Serum or PlasmaOrdered By: Dedrick Fuller on 08-30-2024 Creatinine [Mass/Vol] 0.75 mg/dL Normal 0.60-1.20 [facility] Comment on above: Performed By: #### L IPID, BMP #### [facility] [address] [place] [address] [place] Glucose [Mass/volume] in Ser um or PlasmaOrdered By: Dedrick Fuller on 08-30-2024 Glucose [Mass/Vol] 95 mg/dL Normal 70-100 [facility] Comment on above: ADA recommended refe rence rangeRandom Glucose Reference Range is dependent on time and content of last meal. Glucose of more than 200 mg/dL in a nonstressed, ambulatory subject supports the diagnosis of Diabetes Mellitus. Result Comment: [place] Glucose Reference Range is dependent on time and content of last meal. Glucose of more than 200 mg/dL in a nonstressed, ambulatory subject supports the diagnosis of Diabetes Mellitus. ADA recommended reference range Performed By: #### L IPID, BMP #### [address] Lipid Panelon 08-30-2024 LDL Cholesterol,Calculated 134 mg/dL High 0-100 [facility] Comment on above: Result Comment: LDL ATP III CLASSIFICATION LDL less than 100 mg/dL Optimal LDL 100-129 mg/dL Near or above optimal LDL 130-159 mg/dL Borderline high LDL 160-189 mg/dL High LDL greater than 189 mg/dL Very high Performed By: #### L IPID, BMP #### [address] Triglyceride w/Reflex 231 mg/dL High 0-149 [facility] Comment on above: Result Comment: TRIG ATP III CLASSIFICATION TRIG less than 150 mg/dL Normal TRIG 150-199 mg/dL Borderline high TRIG 200-500 mg/dL High TRIG greater than 500 mg/dL Very high Standard traceable to the Center for Disease Conrtrol and Prevention (CDC) test method. Performed By: #### L IPID, BMP #### [address] VLDL CHOLESTEROL 46 mg/dL Normal [facility] Comment on above: Performed By: #### L IPID, BMP #### [address] No Panel InformationOrdered By: Dedrick Fuller on 08-30-2024 Estimated GFR (CKD-EPI) > 60.0 mL/Min [facility] Creatinine Clearance (Chem N/A [facility] Potassium [Moles/volume] in Serum or PlasmaOrdered By: Dedrick Fuller on 08-30-2024 Potassium [Moles/Vol] 4.1 mmol/L Normal 3.5-5.1 [facility] Comment on above: Performed By: #### L IPID, BMP #### [facility] [address] [place] [address] Serum or plasma anion gap de terminationOrdered By: Dedrick Fuller on 08-30-2024 Anion gap [Moles/Vol] 13.5 mmol/L Normal 6.0-15.0 [facility] Comment on above: Performed By: #### L IPID, BMP #### [facility] [address] [place] [address] Serum or plasma high density lipoprotein (HDL) cholesterol measurementOrdered By: Dedrick Fuller on 08-30-2024 Cholesterol in HDL [Mass/Vol] 38 mg/dL Normal 23-92 [facility] Comment on above: HDL CHOL ATP-III CLA SSIFICATION Cardiovascular RiskHDL > or equal to 60 mg/dL LOWHDL < 40 mg/dL HIGH Result Comment: HDL CHOL ATP-III CLASSIFICATION Cardiovascular Risk HDL > or equal to 60 mg/dL LOW HDL < 40 mg/dL HIGH Performed By: #### L IPID, BMP #### [facility] [address] [place] [address] Serum or plasma total choles terol/high density lipoprotein (HDL) cholesterol mass ratOrdered By: Dedrick Fuller on 08-30-2024 Cholesterol.total/Mirta sterol in HDL [Mass ratio] 5.7 {ratio} Normal <5.0 [facility] Comment on above: Result Comment: PERF ORMED BY: [place] [address] PATHOLOGIST CHIP APPLYING MACHINE TENDER IRMA MARCELO M.D. Performed By: #### L IPID, BMP #### [facility] [address] [place] [address] [place] Sodium [Moles/volume] in Ser um or PlasmaOrdered By: Dedrick Fuller on 08-30-2024 Sodium [Moles/Vol] 140 mmol/L Normal 136-145 [facility] Comment on above: Performed By: #### L IPID, BMP #### [facility] [address] [place] [address] Triglyceride [Mass/volume] i n Serum or PlasmaOrdered By: Dedrick Fuller on 08-30-2024 Triglyceride [Mass/Vol] 231 mg/dL High 0-149 [facility] Comment on above: TRIG ATP III CLASSIF ICATIONTRIG less than 150 mg/dL NormalTRIG 150-199 mg/dL Borderline highTRIG 200-500 mg/dL High TRIG greater than 500 mg/dL Very highStandard traceable to the Center for Disease Conrtrol and Prevention (CDC) test method. Urea nitrogen [Mass/volume] in Serum or PlasmaOrdered By: Dedrick Fuller on 08-30-2024 Urea nitrogen [Mass/Vol] 18 mg/dL Normal 7-25 [facility] Comment on above: Performed By: #### L IPID, BMP #### [address] Coding Summaryon 03-19-2024 Coding Summary HTMLBase 64 CgmkwreiYEu2aIj+PGhlY WQ+KC3SGBNyD94wiYLpkI 3sT7WCVTfAKylfSKPCETq ZAnNjedEsCQ0suCTwUWPt IC8+DK0kWNCcMffafBCgd 9D6vSN8O74xlt2rYWaurG Z3PJGyBuMbesrbb4dewMn 6IDcuNmluOyBt QIUaiG75VJD4dB93Gg55u ACqpTOgx4gciTg0AxJcSV EwQIL0uHowHKjdr8StQJP zZ95zzFRzn1M8 NUWsbAcxtRZqGtSloFM6m N0yZUiykzkpu8hyqdyoIe w9lu22vVUbw3V1qXU0R8Z yluK6VWHspWZc KkkizCNDwN2aepqjf2ypu ijlMdNwPFDuKVk9AKt8XP DbxMcgBgCsDJ18NQJ4RQT htuSsD8PzRCXi lEuxCjV8z5E3Ds3KK0OEB ccdU2VWNSYOOPmudGR+PC 20nz83G3PhObtbOkl3IPY gVGA3yBU3vN4t IJNpGGenm6L6jCF6T3Pgu nXldk1eh4lxXSZtWSzjA3 8cjZEqw4L0PNEtcZP3LBA ejFseGrJxwT87 Oyc+YKSzvXfax8SeXdoqa 5wsk0fjwEb9TfnwESQvjf RvtJmzYIO6y4AtXq4pQUY teLC3jGH4xF7b WhKyWmH4UMngE917AkBux FBjGiluK86zM7ObmZN+PH KbFtr8KGMyoKuqQF7yF5F hZGRpbmctbGVm yBsoVE6jGIPbhnliDZLuq V8xKEOrZ4c3EiGpJoK3IM arF3KvEQQjnswnOr14oK7 kYpCiXhG4XZdw U6DsiaM8MXFaxDFcVOwjY RU2N00ru2J6PJGaRFEvTM Q6eGJ6iH6zaNjcoxkfcAJ mdDsgdmVydGlj HOohKQtrG687HKJzoSkgE kNvZGluZyBEYXRlOiAgMD QvMTkvMjAyNDwvdGQ+PHR bXNC6wMkeASBr iBGeBOtjNv8qqLlnaFjgK H3eKDPjcgzgSJMpaI9xPU ZjzEOttQmwWV3fCBTegdp pv935CzStKGS6 QLAbcHOoP1WcsC4tAsZtC WPpDPExM1YgoBRhNVscR2 26JNxyXzP0OTAmrmXfW3E sLWFsaWduOiB0 m1L2Fs7Ti6NagxplZ4Lqq JIvSkImAwnbSUs0Y7BhCw wvdHI+GA67CKQdSB04QDx 8NDV2tJyaNMcy GJSeU0GyzU8vGfQdGYFsM GRkOyc+PHRhYmxlIHdpZH RoPScxMDAlJyBzdHlsZT0 rGp9tZOMgIFMg fXzktTZbOuTbv9kzTHPkD DqeYY3exRfoM1VmuSC8SV Met9m8Kw92B84rK8QekNK +WWZgnCU0aQE6 gF5aMaSaNvB4DMhjC910R fPlzZJrFrvsa1mfq5ndmH r0QzD9YQFslfAvwWwyGUT 9b7QeKp86W23k IHdpZHRoPSIxNSUiIHZhb Ngpkz0lqA7vMi1+PGNvbC O6sFP5mD2bUiIjOuL0TNe rE820GqKhbNFt Hhezc3npd7jrgKb3BsBmW MIyuvKulYhmCLK3v4VsTw 31J8JtcBcuj8AxQsh9qf7 0xJEjq3P4hYT0 Q4FnXTEwieggqDJdpHzeX C1aGPQwacgrYVVeaP4cLW FrT7m7ZaArApA8JBilQ4B yqpS9FGWzxQTg OFKhjMBWqQ8szzxpw5bqf dymTpYiZSQvYRs0ZNo4HS ItzJuuNgNpJHT3CfX7VLL 3sKXvoW7lbSat qbvodF2hXwh+YPK6hEPqy DCDSH0mWokneMN+PHRkIH L7nEjlSFjvDVOieV2yOMF qB5b1GlFnHjH6 HQarS8UgtiB2UDGnnIIuO KFpvJBMqB6qnfbja8pqoi iaSmRbEKVjWFd8USf7ZWS saWduOiBsZWZ0 HyZ7CGF2rFRfrF5qeBjxk dahkN5aVan+QmlydGggRG R7ZHx5O6JmOdx2VHZraQc wTA5oeETwIRhw Ho2uaHzkwFbvSY7cCPSlo xpto950NlThd3tuRDPsbQ PlFWzaHSH9T13oj8K1VXL nMMEeLXN4kEZ2 oN4xyBrysvfadYScnUsav fLruVjwLFzqHMgaD665DK IsqJdjPcLwTIf7S4KlGuf 0YFNsqBgzXH8a oDYqNIcwUc5rmXqewVhbJ N0gSWTjlyvwb981IbMtb4 dsCUNktKLaBVfzFNZ3X37 yc5Q6XLOiVQZg TJT8uKG2xC3wxNgasefsz GVmdDsgdmVydGljYWwtYW ikW151AHUdyWgfMkCnjQj 2J5AsDol5DEFl qUfbGY0xpHWrIYgdCv8xm NpnyNqhSG5cWGGtnjrvk0 52MxFgx8prLFXgrAOkAZv rDUV2D31mb9E4 PLAmVKBqUBP6uWC1rS2zq GlnbjogbGVmdDsgdmVydG hrFIcuLLmeT027AOWvsAj nPlBhdGllbnQg XRblTAq0J2HaTjpucGI+P C90DWLkHE85mJVcxJFhf3 gtfDi9FaJyJSMyRTB3uYr xIUriy5UqFBXz U22gvGTyw8I3CFKqaLrui BJvDjOvdRL6tY4gURdani nnf3vgtnffZtbqr4eyoz6 3zU14N16uKIef ZHRoPSIzMCUiIHZhbGlnb z9gnA7fTm1+ZBZgvTB3oP B9qH7kHYVkJlZ0IZxfH43 9InRvcCIvPjxj e1ldw7myzDa9BjB7AWUgr bWozIhrXGI0b2LlKx25Q2 9sIHdpZHRoPSIyMCUiIHZ lvSwmvf8ibH3l Ii8+WZLkmMY2cHO5yR7lS qIcUeW0MXkuZ028QuCosQ OtKdssF43vN3FblQS+PHR tIcr9TMUzbIhn OL0jdASaLCzeUa5iBBV1A vZnHnQuMOaaO4NvMPQrwp mjmhdhqKG6ULPtYBMkhC7 4Ni2wtWnfURXm gBVXcY4jjokyu9cfwuurF aHmAXZsFWk5VEc4VDYbtC jfIsWtYWB8LcQ6TMO3zUS xcK0nlXihjhri jZ1lY4EmPLWlsmpfWz96n L4tKsElWcM2UYspWtj+Q0 3IZIVYTIKRIQDEEN5SEG7 JQ95FKCquiTU+ HRObSWK8nZajFJgiCGWfv Z3jBGEqE5k1WeRpXkV3AW fyD9DyFEBkfdxmZt50yK6 nBjFsAnK5GOlm W5LzcnD7GXYmrZCkVEwwT GM3W62hj1I7RUZoUHGqUB I0qLN1qH7btKeifalkeMW mdDsgdmVydGlj SZocNYwrH354RKTxdAyoR qQ7CfJ4ZkQ2NiC0C1ObWm x9ERLigLzzZY3vcWSxITd mWr6uoIzokSrv UE8wSGSzkctwJWUjhG4eR VDmuFTylSumJD4hAWCtzt qqr239IcItQNB6CGMsoIY mW4HbjU3gKcTw ZNRhSUQhW9VewSRiCPunD 574ISbwPxH1BSJztaShH6 XrFCQfeArdBnA3f1U1Sj5 0NyBZZWFyczwv dGQ+DOCwVXH6oEhmNJsuL WIycN1gICSlO7u6VkDlAu A6IHkhX3IfCDJwllvcVz3 0sR5sXnImXkK6 EFtdL7GlrpK8UOZdwUZcI GunNDU2Y11cs4B7OYOzSZ NqJCW0bLO4fO3krWiyuou gbGVmdDsgdmVy kEwoPLhiLMubK504RTFnj DsnPkZFTUFMRTwvdGQ+PH IxLIE4yOlyATkxUCLzrE9 cGLSwX9x3XhOo DwT4FDdtT2PeZSWkhssgK u73vM1rLoVyBjV8YTjpR7 MjegU7MINviQAtJMyzSOV 6L95er0L7ZEUk MTMhHGJ2cED2vJ6sdFadl jogbGVmdDsgdmVydGljYW phTBbaJ167UWCdcTbaYpP qZDYmDG6ueSmi dGQ+LR31uw99E7TnJyfuI lf2RDZgELJ6kJD9hC3tTJ GkGFexg4T0hYV2Y2PadiW ujs3yr0bbTRBs KSlmW79wnDVdk1Q4CNDzu GX3HUThbBlqAjGhvE76Ku c+YXSjkIxxu8BmAxzdv9h hq5mepEd6NeLe XUTciqChxOkiCTB2c7KrM x47K00hUBbiQZQxMVOdWW MpUXGbpLhsty8llW1lAb5 +JYBdiPB3wJR5 wZ4nGoVfNtX4WSijJ096V uShhAFgPxngd6rsa0mffN m3LoYaKHOkizLzyUdrIBZ 0b4PuQe03P6Er tYlxa0NtXmw7mx40bLPyl 2I3rEI7H5KqXZNckwfqbR UfnUuhZB1eORGefnftARR mbK2pDOPbQ0g7 QtMsPjP6TBrxS6CkuqC3Y IXmyWSsAXFsuFJScX3ttj rus6eukwatWpXyULWoQPr 1IQj8MPHylHpm CbPsKBL2UhM2KKI7cMRyk L8bjHaasejodF4cBby+UG s8x4mnkXHdLY7ghWJ4DO2 2AU02oTWcd7Y5 mLG2K8KaQZSyjkuptuczo HN7OAFqRJTnoZ18Nm1ngS foUl6tIRVpYIA9MVHymRA rL0DubX5jQbKp DLFwELGcO9MfuVInVVzkH 509OMboXjQ0PNCkzkJtC4 BxSXYefDucHxF8k6Y6Zb0 AYB93KI31AC54 zAIfb6V9eSO6T4JwJBMxu zmrtdeboGT2AWInUZHycU 12Sb0iaPfkFn2sPEQrYPB 9PPNeiZQrV1Vo lO2nLxQfLTRdDJTwI4Oob ICmZQfeU385UKcaGaL1AL RjpsPqF4XdSNNnkAotZcX 8x8S1Jy8GEx78 VV57MQ13dIYqy7U8nAL0B 7DnAJYxqvrumcxdeON6PZ BqVTIqeW68Zy9taEytTs6 vFELwNCR3BNBa dCFmF1QxwT6dLiDpVMXzF EVjG6SjzYQjPXmpH102GW wyNdN2MFHoxvXdI4FgGLO ocQwtEtO1n6T1 Ek0CIMeucsk0L3UjIqljz HI+LA67FYBvSQ67pSZyiB Mnl6nbrNy9SrCaTOImKQV 7qRplLIoyl1Oj ZXI (more content not included)... Normal [facility] Noteon 03-17-2024 Ambulance Note [id number]#[id number] OTGTIFF Normal [facility] C Urineon 03-17-2024 C Urine Urine Culture ordere d as a result of parameters set on specific urine dip and urine microsopic results. >100,000 cfu/ml Lactobacillus species Normal vaginal oleg isolated 10,000 cfu/ml Corynebacterium species (DIPTHEROID) No YOLANDE performed on this organism No pathogens isolated [facility] Comment on above: Performed By: #### 5 [id number], [id number] ####[facility] (DEFAULT)[address] [place] [address] .Auto Diff 1on 03-15-2024 Auto [place] % 3 % Normal 12-12 [facility] Comment on above: Performed By: #### 5 [id number], [id number], [id number], [id number], [id number], 8633128, [id number] #### [facility] (DEFAULT) [address] [place] [address] Baso Abs# 0.1 x10 Normal 0.0-0.2 [facility] Comment on above: Performed By: #### 5 [id number], [id number], [id number], 94642265, 4400164059, 7419537, 7323352 #### [facility] (DEFAULT) [address] [place] [address] Basophils/100 WBC (Bld) 0.7 % Normal 0.2-2.[address] [facility] Comment on above: Performed By: #### 5 [id number], [id number], [id number], 60990324, [id number], 4878334, 1282544 #### [facility] (DEFAULT) [address] [place] [address] Eos Abs# 0.1 x10 Normal 0.0-0.4 [facility] Comment on above: Performed By: #### 5 [id number], [id number], [id number], 38270049, 9845989276, 0459781, 3867100 #### [facility] (DEFAULT) [address] [place] [address] Eosinophils/100 WBC (Bld) 0.7 % Low 0.9-4.0 [facility] Comment on above: Performed By: #### 5 [id number], [id number], 9944107182, 02595682, 9751658757, 4492306, 4715330 #### [facility] (DEFAULT) [address] [place] [address] Lymph Abs# 2.2 x10 Normal 1.3-2.9 [facility] Comment on above: Performed By: #### 5 [id number], [id number], 9083905114, 01864213, 4175321094, 5378919, 5960782 #### [facility] (DEFAULT) [address] [place] [address]3597 Lymphocytes/100 WBC (Bld) 14 % Normal 14-48 [facility] Comment on above: Performed By: #### 5 [id number], [id number], [id number], 39352039, 1886853118, 8753301, 4066371 #### [facility] (DEFAULT) [address] [place] [address] [place] Abs# 0.5 x10 Normal 0.0-0.8 [facility] Comment on above: Performed By: #### 5 [id number], [id number], 0906965789, 60986520, 1286552582, 4705473, 7383542 #### [facility] (DEFAULT) [address] [place] [address] Neut Abs# 13.5 x10 High 1.5-9.2 [facility] Comment on above: Result Comment: Slid e Reviewed Performed By: #### 5 [id number], [id number], [id number], 20868624, 3711844206, 6406474, 3328185 #### [facility] (DEFAULT) [address] [place] [address] Neutrophils/100 WBC (Bld) 82 % Normal 44-88 [facility] Comment on above: Performed By: #### 5 [id number], [id number], [id number], 13908157, 0481812121, 0605499, 0570493 #### [facility] (DEFAULT) [address] [place] [address] CBC w/ Auto Diffon 4 Erythrocyte distribution width (RBC) [Ratio] 13.3 % Normal 11.5-15.0 [facility] Comment on above: Performed By: #### 5 [id number], [id number], [id number], 90530126, 3082382155, 2258995, 3882299 #### [facility] (DEFAULT) [address] [place] [address] Hematocrit (Bld) [Volume fraction] 45.0 % High 33.7-40.4 [facility] Comment on above: Performed By: #### 5 [id number], [id number], [id number], 08020704, 0594298559, 3251902, 4773510 #### [facility] (DEFAULT) [address] [place] [address]120 Hemoglobin (Bld) [Mass/Vol] 15.0 g/dL Normal 11.3-15.9 [facility] Comment on above: Performed By: #### 5 [id number], [id number], 4120109386, 06717840, 1385840264, 9340001, 4608216 #### [facility] (DEFAULT) [address] [place] [address]72[address] Man Diff? Auto Invalid Interpretation Code [facility] Comment on above: Performed By: #### 5 [id number], [id number], [id number], 00418723, 1918128360, 9705052, 7092390 #### [facility] (DEFAULT) [address] [place] [address] 45678 MCH (RBC) [Entitic mass] 32 pg Normal 24-34 [facility] Comment on above: Performed By: #### 5 [id number], [id number], 8866836024, 29089804, 1860747444, 4084032, 6225904 #### [facility] (DEFAULT) [address] [place] [address]857 MCHC (RBC) [Mass/Vol] 33 g/dL Normal 26-37 [facility] Comment on above: Performed By: #### 5 [id number], [id number], 0097890895, 79035654, 3260731678, 8970446, 3682531 #### [facility] (DEFAULT) [address] [place] [address] 13209 MCV (RBC) [Entitic vol] 95 fL Normal 81-[address] [facility] Comment on above: Performed By: #### 5 [id number], [id number], 2166238914, 36102507, 6229655596, 2025130, 8626801 #### [facility] (DEFAULT) [address] [place] [address] 34664 Platelet 292 x10 Normal 138-427 [facility] Comment on above: Performed By: #### 5 [id number], 2214557650, 1105001326, 69187852, 9621245157, 7846717, 1568372 #### [facility] (DEFAULT) [address] [place] [address] Platelet mean volume (Bld) [Entitic vol] 8.7 fL Normal 6.3-10.2 [facility] Comment on above: Performed By: #### 5 [id number], 5762221761, 8901651417, 48769632, 1646304957, 6281476, 6569133 #### [facility] (DEFAULT) [address] [place] [address] RBC 4.74 x10 Normal 3.70-5.30 [facility] Comment on above: Performed By: #### 5 [id number], 7494149202, 0807432124, 64949035, 1126158888, 1313068, 6696058 #### [facility] (DEFAULT) [address] [place] [address] WBC 16.4 x10 High 3.5-10.5 [facility] Comment on above: Performed By: #### 5 [id number], 7618330274, 3267519576, 64829491, 8833934253, 3995391, 0459476 #### [facility] (DEFAULT) [address] [place] [address] 97225 CMP Standardon 03-15-2024 eGFR Non AA >60 Invalid Interpretation Code [facility] Comment on above: Performed By: #### 5 [id number], [id number], 9113173493, 32190576, 5930031013, 2411977, 7864781 #### [facility] (DEFAULT) [address] [place] [address] 02237 eGFR AA >60 Invalid Interpretation Code [facility] Comment on above: Performed By: #### 5 [id number], 4503668618, 7817253668, 85860572, 3759242408, 5661828, 4076912 #### [facility] (DEFAULT) [address] [place] [address] 86783 Albumin [Mass/Vol] 4.1 g/dL Normal 3.5-5.0 [facility] Comment on above: Performed By: #### 5 [id number], 9106740488, 8746015368, 21230842, 2904811910, 7560021, 2363615 #### [facility] (DEFAULT) [address] [place] [address] 02723 Albumin/Globulin [Mass ratio] 1.3 {ratio} Low 1.4-2.6 [facility] Comment on above: Performed By: #### 5 [id number], 6483334011, 1005012993, 77823398, 9211345998, 4385564, 0426820 #### [facility] (DEFAULT) [address] [place] [address] 41322 Alk Phos 39 IU/L Normal 32-91 [facility] Comment on above: Performed By: #### 5 [id number], 1017732283, 6427238312, 04695181, 9821094329, 5834392, 3669340 #### [facility] (DEFAULT) [address] [place] [address] 11635 ALT [Catalytic activity/Vol] 32.0 U/L Normal 14.0-54.0 [facility] Comment on above: Performed By: #### 5 [id number], 0089225056, 7418680664, 15495369, 1232920185, 0353094, 8739558 #### [facility] (DEFAULT) [address] [place] [address] 85437 Anion gap [Moles/Vol] 13.0 mmol/L Normal 5.0-19.0 [facility] Comment on above: Performed By: #### 5 [id number], 0606437756, 1384898769, 67045337, 1373297648, 2127257, 8492305 #### [facility] (DEFAULT) [address] [place] [address] 31290 AST [Catalytic activity/Vol] 25 U/L Normal 15-41 [facility] Comment on above: Performed By: #### 5 [id number], 6493770912, 1021548442, 74146076, 0410740484, 0204927, 3120340 #### [facility] (DEFAULT) [address] [place] [address] 70395 Bili Total 1.4 mg/dL High 0.3-1.2 [facility] Comment on above: Performed By: #### 5 [id number], 4702671779, 7436977944, 36357107, 8621659066, 7000314, 6088819 #### [facility] (DEFAULT) [address] [place] [address] 50625 Calcium [Mass/Vol] 8.8 mg/dL Low 8.9-10.3 [facility] Comment on above: Performed By: #### 5 [id number], 1446499326, 3666583010, 71014798, 2192431375, 3740145, 6933564 #### [facility] (DEFAULT) [address] [place] [address] 20279 Chloride [Moles/Vol] 105 mmol/L Normal 101-111 [facility] Comment on above: Performed By: #### 5 [id number], [id number], [id number], [id number], [id number], [id number], [id number] #### [facility] (DEFAULT) [address] [place] [address] 91312 CO2 [Moles/Vol] 24 mmol/L Normal 21-32 [facility] Comment on above: Performed By: #### 5 [id number], [id number], [id number], 82401775, [id number], 9118651, 4383682 #### [facility] (DEFAULT) [address] [place] [address] 79858 Creatinine [Mass/Vol] 0.72 mg/dL Normal 0.60-1.30 [facility] Comment on above: Performed By: #### 5 [id number], [id number], [id number], [id number], 1775968757, 6203547, 2972385 #### [facility] (DEFAULT) [address] [place] [address] 07038 Globulin (S) [Mass/Vol] 3.0 g/dL Normal 1.5-4.[address] [facility] Comment on above: Performed By: #### 5 [id number], [id number], [id number], 11759978, 4138615340, 0181126, 1574001 #### [facility] (DEFAULT) [address] [place] [address] 42636 Glucose [Mass/Vol] 124.0 mg/dL High 74.0-118.0 [facility] Comment on above: Performed By: #### 5 [id number], [id number], [id number], 68051942, 6666321246, 8424645, 8575183 #### [facility] (DEFAULT) [address] [place] [address] 69287 Osmolality 278 mOsm/L Invalid Interpretation Code [facility] Comment on above: Performed By: #### 5 [id number], [id number], [id number], 34080095, [id number], 4077879, 2682308 #### [facility] (DEFAULT) [address] [place] [address] 74281 Potassium [Moles/Vol] 4.0 mmol/L Normal 3.6-5.1 [facility] Comment on above: Performed By: #### 5 [id number], [id number], 1325512406, 26405647, 3513662952, 3265023, 5981091 #### [facility] (DEFAULT) [address] [place] [address] 31606 Protein [Mass/Vol] 7.1 g/dL Normal 6.5-8.1 [facility] Comment on above: Performed By: #### 5 [id number], [id number], 2393816808, 22228686, 3782547160, 3456615, 2840955 #### [facility] (DEFAULT) [address] [place] [address] 00264 Sodium [Moles/Vol] 138.0 mmol/L Normal 136.0-144.0 [facility] Comment on above: Performed By: #### 5 [id number], [id number], 5685166931, 14650079, 8396533767, 6327487, 4822986 #### [facility] (DEFAULT) [address] [place] [address] 04566 Urea nitrogen [Mass/Vol] 15 mg/dL Normal 8-26 [facility] Comment on above: Performed By: #### 5 [id number], [id number], 2729224832, 40988169, 7999371702, 6781688, 6067869 #### [facility] (DEFAULT) [address] [place] [address] 50599 Urea nitrogen/Creatinine [Mass ratio] 20.8 mg/mg High 4.6-16.2 [facility] Comment on above: Performed By: #### 5 [id number], [id number], 6376149153, 17334328, 3545610448, 8547108, 3478004 #### [facility] (DEFAULT) [address] [place] [address] 14312 Breakpoint Chem Normal [facility] Comment on above: Performed By: #### 5 [id number], [id number], 9309537800, 56831938, 2167831153, 8335275, 9924416 #### [facility] (DEFAULT) [address] [place] [address] 43519 ED Clinical Summaryon 2023 ED Clinical Summary [facility] - Emergency Department [address] [place] [address] ED Clinical Summary PERSON INFORMATION Name: HORACIO KEATING Age: 48 Years Sex: FEMALE : 1975 MRN: Acct#: Visit Reason: Shortness of breath; Anxiety; Blood pressure check; SOB Arrival: 03/15/2024 17:56:51 Discharge: 03/15/2024 20:31:00 LOS: 000 02:35 Check In: 03/15/2024 17:56:51 Checkout:03/15/2024 20:31:00 Address: [address] [place], [place] [address] PCP: SAMI MARINELLI PROVIDER INFORMATION Provider Role Assigned Unassigned Nicola Neff DO ED Provider 03/15/2024 18:07:25 Solange MALHOTRA, Shanika Lawton ED Nurse 03/15/2024 18:08:57 Joanna Angeles [employer] LEGAL ASSISTANT Nurse 03/15/2024 19:24:01 VITALS INFORMATION Vital Sign [...] . Physical Exa (more content not included)... [facility] ED Note - Physicianon 2023 [...] No lymphadenopathy. Psychiatric: (more content not included)... [facility] ED Note-Nursingon 03-15-2024 ED Note-Nursing Patient presents to the ER via [facility] for shortness of breath, anxiety. Patient [...] cannula. 12 lead was regular in rate [facility] ED Patient Summaryon 024 ED Patient Summary [facility] - Emergency Department [address] [place] [address] PATIENT DISCHARGE INSTRUCTIONS Patient Information Name: HORACIO KEATING Age: 48 Years Date of : 1975 Reason For Visit: Shortness of breath; Anxiety; Blood pressure check; SOB Arrival Time: 03/15/2024 17:56:51 Primary Care Physician: SAMI MARINELLI Attending Physician: Nicola Neff DO Comment: Visit Diagnosis: Diagnoses This Visit Anxiety (11960733) Blood pressure check ([id number]) Hypertension (I10) Panic attack (F41.0) Shortness of breath ([id number]) Urinary tract infection (N39.0) The Pharmacy at [facility] is open Friday through Friday from [...] alcohol and/or drug addiction problems; contact the [facility] 23/06 Crisis Hotline -Text 3QCSH gj [phone]. If you received any narcotics, sedation, or [...] legal documents With: Address: When: SAMI MARINELLI [address] [place] [address] [place] [phone] Business (1) Within 3 to 5 days Comments: Call for follow up appointment Return if symptoms worsen Medication Information: The exam and treatment you received today in the [facility] Emergency Department were for an urgent problem and are not intended as complete care. It is important for you to follow up with a doctor, nurse practitioner, or physician?s regulatory assistant for ongoing care. If your symptoms [...] we can reach you if necessary. [facility] Emergency Department has provided you with a complete list of medications post discharge. Please inform your journeyman mechanic/provider of your visit and for further instruction [...] an (more content not included)... Normal [facility] Extra Greenon 03-15-2024 Tube Collected Yes Invalid Interpretation Code [facility] Comment on above: Performed By: #### 5 [id number], [id number], [id number], 42213074, 9990695320, 9531849, 3134221 #### [facility] (DEFAULT) [address] [place] [address] 76132 Extra Redon 03-15-2024 Tube Collected Yes Invalid Interpretation Code [facility] Comment on above: Performed By: #### 5 [id number], [id number], 6774946145, 10330740, 6842243738, 5087232, 3802765 #### [facility] (DEFAULT) [address] [place] [address] 98087 PTon 03-15-2024 INR Coag (PPP) [Relative time] 0.94 {INR} Normal 0.91-1.11 [facility] Comment on above: Performed By: #### 5 [id number], [id number], 8091072766, 56966982, 7553346616, 6163700, 1906492 #### [facility] (DEFAULT) [address] [place] [address] 39868 PT 9.8 second(s) Normal 9.7-11.8 [facility] Comment on above: Performed By: #### 5 [id number], 4245729033, 8238528427, 90725662, 0745765375, 0500294, 4314689 #### [facility] (DEFAULT) [address] [place] [address] 08432 TnI HSon 03-15-2024 Troponin I High Sensitivity 7.7 pg/mL Normal <=15.0 [facility] Comment on above: Performed By: #### 5 [id number], [id number], 2262813692, 10220488, 2205065066, 8402545, 7798693 #### [facility] (DEFAULT) [address] [place] [address] UA [id number] 03-15-2024 UA Amorph. 1+ [facility] Comment on above: Order Comment: Urina lysis Microscopic order added on by Discern Expert Rules system. Performed By: #### 5 [id number], [id number], 9354003 ####[facility] (DEFAULT)[address] [place] [address] UA Bacteria 3+ Normal [facility] Comment on above: Order Comment: Urina lysis Microscopic order added on by Discern Expert Rules system. Performed By: #### 5 [id number], [id number], 7564788 ####[facility] (DEFAULT)[address] [place] [address] UA Mucous 1+ [facility] Comment on above: Order Comment: Urina lysis Microscopic order added on by Dis[employer] Expert Rules system. Performed By: #### 5 [id number], [id number], 7132134 ####[facility] (DEFAULT)[address] [place] [address] UA RBC 3-5 [facility] Comment on above: Order Comment: Urina lysis Microscopic order added on by Discern Expert Rules system. Performed By: #### 5 [id number], [id number], 8902932 ####[facility] (DEFAULT)[address] [place] [address] UA Renal Epi Rare [facility] Comment on above: Order Comment: Urina lysis Microscopic order added on by Discern Expert Rules system. Performed By: #### 5 [id number], [id number], 8058750 ####[facility] (DEFAULT)[address] [place] [address] UA Squam Epi Many Normal [facility] Comment on above: Order Comment: Urina lysis Microscopic order added on by Discern Expert Rules system. Performed By: #### 5 [id number], [id number], 7898346 ####[facility] (DEFAULT)[address] [place] [address] UA WBC 3-5 [facility] Comment on above: Order Comment: Urina lysis Microscopic order added on by Discern Expert Rules system. Performed By: #### 5 [id number], 1358768870, 4306712 ####[facility] (DEFAULT)[address] [place] [address] UA w Culture if Ind Standard on 03-15-2024 Breakpoint UA [facility] Comment on above: Performed By: #### 5 [id number], [id number], 9177480 ####[facility] (DEFAULT)[address] [place] [address] Color (U) Yellow [facility] Comment on above: Performed By: #### 5 [id number], [id number], 5935627 ####[facility] (DEFAULT)[address] [place] [address] Culture? Indicated Invalid Interpretation Code [facility] Comment on above: Result Comment: Resu lt created by rule GL_MAGR_ADD_UA_CULT Result created by rule GL_MAGR_ADD_UA_CULT Result created by rule GL_MAGR_ADD_UA_CULT1 Result created by rule GL_MAGR_ADD_UA_CULT Performed By: #### 5 [id number], [id number], 0336604 ####[facility] (DEFAULT)[address] [place] [address] Glucose (U) [Mass/Vol] Negative [facility] Comment on above: Performed By: #### 5 [id number], [id number], 6264538 ####[facility] (DEFAULT)[address] [place] [address] Ketones Ql (U) Negative [facility] Comment on above: Performed By: #### 5 [id number], [id number], [id number] ####[facility] (DEFAULT)[address] [place] [address] Micro? Indicated Invalid Interpretation Code [facility] Comment on above: Result Comment: Resu lt created by rule GL_MAGR_ADD_UA_MICRO Performed By: #### 5 [id number], [id number], 2064851 ####[facility] (DEFAULT)[address] [place] [address] UA Bilirubin Negative Normal [facility] Comment on above: Performed By: #### 5 [id number], 0989309127, 2450296 ####[facility] (DEFAULT)[address] [place] [address] 81126 UA Blood TRACE Abnormal NEGATIVE [facility] Comment on above: Performed By: #### 5 [id number], [id number], 1625647 ####[facility] (DEFAULT)[address] [place] [address] 57437 UA Clarity SL CLOUDY Abnormal CLEAR [facility] Comment on above: Performed By: #### 5 [id number], [id number], 4165290 ####[facility] (DEFAULT)[address] [place] [address] 72886 UA Leuk Est LARGE Abnormal NEGATIVE [facility] Comment on above: Performed By: #### 5 [id number], [id number], 0554291 ####[facility] (DEFAULT)[address] [place] [address] 26040 UA Nitrite Negative Normal [facility] Comment on above: Performed By: #### 5 [id number], [id number], 8672994 ####[facility] (DEFAULT)[address] [place] [address] 66514 UA pH 6.0 Normal 5-8 [facility] Comment on above: Performed By: #### 5 [id number], [id number], 3657252 ####[facility] (DEFAULT)[address] [place] [address] 93926 UA Protein Negative Normal NEGATIVE [facility] Comment on above: Performed By: #### 5 [id number], [id number], 5814454 ####[facility] (DEFAULT)[address] [place] [address] 02295 UA Spec Grav 1.015 Normal 1.001-1.035 [facility] Comment on above: Performed By: #### 5 [id number], [id number], 8489376 ####[facility] (DEFAULT)[address] [place] [address] 33170 UA Urobilinogen 0.2 mg/dL Normal 0.2-1.0 [facility] Comment on above: Performed By: #### 5 [id number], [id number], 0019906 ####[facility] (DEFAULT)[address] [place] [address] Urine Source Clean Catch Normal [facility] Comment on above: Performed By: #### 5 [id number], [id number], 9599747 ####[facility] (DEFAULT)[address] [place] [address] XR Chest 1 View Frontalon XR Chest [...] MD 03/15/24 7:34 pm Technologist: Lizzy BRICEÑO [facility] Calcium [Mass/volume] in Ser um or PlasmaOrdered By: Dedrick Fuller on 08-15-2023 Calcium [Mass/Vol] 9.1 mg/dL 8.6-10.3 [facility] Carbon dioxide, total [Moles /volume] in Serum or PlasmaOrdered By: Dedrick Fuller on 08-15-2023 CO2 [Moles/Vol] 26.7 mmol/L 21.0-31.0 [facility] Chloride [Moles/volume] in S altagracia or PlasmaOrdered By: Dedrick Fuller on 08-15-2023 Chloride [Moles/Vol] 107 mmol/L 98-107 [facility] Cholesterol [Mass/volume] in Serum or PlasmaOrdered By: Dedrick Fuller on 08-15-2023 Cholesterol [Mass/Vol] 166 mg/dL 140-200 [facility] Comment on above: Chol less than 200 m g/dl low riskChol 201-239 mg/dl borderline riskChol 240 mg/dl and greater high risk Cholesterol in LDL Calc [Mas s/Vol]Ordered By: Dedrick Fuller on 08-15-2023 Cholesterol in LDL [Mass/Vol] 95 mg/dL 0-100 [facility] Comment on above: LDL ATP III CLASSIFI CATIONLDL less than 100 mg/dL OptimalLDL 100-129 mg/dL Near or above optimalLDL 130-159 mg/dL Borderline highLDL 160-189 mg/dL HighLDL greater than 189 mg/dL Very high Cholesterol in VLDL Calc [Ma ss/Vol]Ordered By: Dedrick Fuller on 08-15-2023 Cholesterol in VLDL [Mass/Vol] 32 mg/dL [facility] Creatinine [Mass/volume] in Serum or PlasmaOrdered By: Dedrick Fuller on 08-15-2023 Creatinine [Mass/Vol] 0.77 mg/dL 0.60-1.20 [facility] Glucose [Mass/volume] in Ser um or PlasmaOrdered By: Dedrick Fuller on 08-15-2023 Glucose [Mass/Vol] 97 mg/dL 70-100 [facility] Comment on above: ADA recommended refe rence rangeRandom Glucose Reference Range is dependent on time and content of last meal. Glucose of more than 200 mg/dL in a nonstressed, ambulatory subject supports the diagnosis of Diabetes Mellitus. No Panel InformationOrdered By: Dedrick Fuller on 08-15-2023 Estimated GFR (CKD-EPI) > 60.0 mL/Min [facility] Creatinine Clearance (Chem N/A [facility] Potassium [Moles/volume] in Serum or PlasmaOrdered By: Dedrick Fuller on 08-15-2023 Potassium [Moles/Vol] 4.0 mmol/L 3.5-5.1 [facility] Serum or plasma anion gap de terminationOrdered By: Dedrick Fuller on 08-15-2023 Anion gap [Moles/Vol] 10.3 mmol/L 6.0-15.0 [facility] Serum or plasma high density lipoprotein (HDL) cholesterol measurementOrdered By: Dedrick Fuller on 08-15-2023 Cholesterol in HDL [Mass/Vol] 39 mg/dL 23-92 [facility] Comment on above: HDL CHOL ATP-III CLA SSIFICATION Cardiovascular RiskHDL > or equal to 60 mg/dL LOWHDL < 40 mg/dL HIGH Serum or plasma total choles terol/high density lipoprotein (HDL) cholesterol mass ratOrdered By: Dedrick Fuller on 08-15-2023 Cholesterol.total/Mirta sterol in HDL [Mass ratio] 4.3 {ratio} <5.0 [facility] Sodium [Moles/volume] in Ser um or PlasmaOrdered By: Dedrick Fuller on 08-15-2023 Sodium [Moles/Vol] 140 mmol/L 136-145 [facility] Triglyceride [Mass/volume] i n Serum or PlasmaOrdered By: Dedrick Fuller on 08-15-2023 Triglyceride [Mass/Vol] 162 mg/dL 0-149 [facility] Comment on above: TRIG ATP III CLASSIF ICATIONTRIG less than 150 mg/dL NormalTRIG 150-199 mg/dL Borderline highTRIG 200-500 mg/dL High TRIG greater than 500 mg/dL Very highStandard traceable to the Center for Disease Conrtrol and Prevention (CDC) test method. Urea nitrogen [Mass/volume] in Serum or PlasmaOrdered By: Dedrick Fuller on 08-15-2023 Urea nitrogen [Mass/Vol] 10 mg/dL 7-25 [facility] GTT 2 HRon 11-09-2022 Glucose [Mass/Vol] 107 mg/dL Critically high 74-106 [facility] Comment on above: Performed By: #### U LG, CRP #### [facility] [address] [place] [address] [address] Soo Donnelly Glucose [Mass/Vol] 152 mg/dL Normal [facility] Comment on above: Performed By: #### U LG, CRP #### [facility] [address] [place] [address] [address] Soo Donnelly Glucose [Mass/Vol] 121 mg/dL Normal [facility] Comment on above: Performed By: #### U LG, CRP #### [facility] [address] [place] [address] [address] Soo Donnelly Facesheeton 11-05-2022 Facesheet [id number] .00CD:127 Normal [facility] Physician Referralon Physician Referral [id number] .00CD:127 Normal [facility] CT ABD/PELV W CONon 10-01-20 22 [...] Date: 2022-10-01 10:31 Normal [facility] CBC AUTO DIFFon 09-18-2022 BASO # 0.0 103/ul Normal 0.0-0.1 [facility] Comment on above: Performed By: #### A NAD #### [facility] [address] [place] [address] Dr. Soo Donnelly Basophils/100 WBC (Bld) 0.4 % Normal 0.2-2.0 [facility] Comment on above: Performed By: #### A NAD #### [facility] [address] [place] [address] Dr. Soo Donnelly EO # 0.1 103/ul Normal 0.0-0.7 [facility] Comment on above: Performed By: #### A NAD #### [facility] [address] [place] [address] Dr. Soo Donnelly Eosinophils/100 WBC (Bld) 1.8 % Normal 0.9-7.0 [facility] Comment on above: Performed By: #### A NAD #### [facility] [address] [place] [address] Dr. Soo Donnelly Erythrocyte distribution width (RBC) [Ratio] 11.9 % Normal 11.0-15.0 [facility] Comment on above: Performed By: #### A NAD #### [facility] [address] [place] [address] Dr. Soo Donnlely Hematocrit (Bld) [Volume fraction] 43.9 % Normal 36.0-48.0 [facility] Comment on above: Performed By: #### A NAD #### [facility] [address] [place] [address] Dr. Soo Donnelly Hemoglobin (Bld) [Mass/Vol] 14.6 g/dL Normal 12.0-16.0 [facility] Comment on above: Performed By: #### A NAD #### [facility] [address] [place] [address] Dr. Soo Donnelly IG # 0.01 10e3/ul Normal 0.00-0.03 [facility] Comment on above: Performed By: #### A NAD #### [facility] [address] [place] [address] Dr. Soo Donnelly IG % 0.1 % Normal 0.0-0.5 [facility] Comment on above: Performed By: #### A NAD #### [facility] [address] [place] [address] Dr. Soo Donnelly LYMPH # 2.7 103/ul Normal 1.2-3.8 [facility] Comment on above: Performed By: #### A NAD #### [facility] [address] [place] [address] Dr. Soo Donnelly Lymphocytes/100 WBC (Bld) 39.9 % Normal 20.5-60.0 [facility] Comment on above: Performed By: #### A NAD #### [facility] [address] [place] [address] Dr. Soo Donnelly MANUAL DIFF REQ NO Normal [facility] Comment on above: Performed By: #### A NAD #### [facility] [address] [place] [address] Dr. Soo Donnelly MCH (RBC) [Entitic mass] 31.7 pg Normal 26.7-34.0 [facility] Comment on above: Performed By: #### A NAD #### [facility] [address] [place] [address] Dr. Soo Donnelly MCHC (RBC) [Mass/Vol] 33.3 g/dL Normal 29.9-35.2 [facility] Comment on above: Performed By: #### A NAD #### [facility] [address] [place] [address] Dr. Soo Donnelly MCV (RBC) [Entitic vol] 95.4 fL Normal 81.0-99.0 [facility] Comment on above: Performed By: #### A NAD #### [facility] [address] [place] [address] Dr. Soo Donnelly MONO # 0.4 103/ul Normal 0.3-0.8 [facility] Comment on above: Performed By: #### A NAD #### [facility] [address] [place] [address] Dr. Soo Donnelly Monocytes/100 WBC (Bld) 5.9 % Normal 1.7-12.0 [facility] Comment on above: Performed By: #### A NAD #### [facility] [address] [place] [address] Dr. Soo Donnelly NEUT # 3.5 103/ul Normal 1.4-6.5 [facility] Comment on above: Performed By: #### A NAD #### [facility] [address] [place] [address] Dr. Soo Donnelly Neutrophils/100 WBC (Bld) 51.9 % Normal 43.0-75.0 [facility] Comment on above: Performed By: #### A NAD #### [facility] [address] [place] [address] Dr. Soo Donnelly Platelet mean volume (Bld) [Entitic vol] 10.8 fL Normal 9.5-13.5 [facility] Comment on above: Performed By: #### A NAD #### [facility] [address] [place] [address] Dr. Soo Donnelly PLT 220 103/ul Normal 150-450 [facility] Comment on above: Performed By: #### A NAD #### [facility] [address] [place] [address] Dr. Soo Donnelly RBC 4.60 106/ul Normal 4.20-5.40 [facility] Comment on above: Performed By: #### A NAD #### [facility] [address] [place] [address] Dr. Soo Donnelly WBC 6.8 103/ul Normal 4.0-11.0 [facility] Comment on above: Performed By: #### A NAD #### [facility] [address] [place] [address] Dr. Soo Donnelly ER URINE PROFILEon 2 Bilirubin Ql (U) Negative Normal NEGATIVE [facility] Comment on above: Performed By: #### U LG, CRP #### [facility] [address] [place] [address] Dr. Soo Donnelly Clarity (U) CLEAR Normal CLEAR [facility] Comment on above: Performed By: #### U LG, CRP #### [facility] [address] [place] [address] Dr. Soo Donnelly Color (U) LT. YELLOW Normal YELLOW [facility] Comment on above: Performed By: #### U LG, CRP #### [facility] [address] [address] [address] Soo CORTEZ A micrscopic examination will be performed if indicated. Normal [facility] Comment on above: Performed By: #### U LG, CRP #### [facility] [address] [place] [address] Dr. Soo Donnelly Glucose Ql (U) Negative Normal NEGATIVE [facility] Comment on above: Performed By: #### U LG, CRP #### [facility] [address] [address] [address] Soo Donnelly Hemoglobin Ql (U) Negative Normal NEGATIVE [facility] Comment on above: Performed By: #### U LG, CRP #### [facility] [address] [place] [address] Dr. Soo Donnelly Ketones Ql (U) Negative Normal NEGATIVE [facility] [facility] Comment on above: Performed By: #### U LG, CRP #### [facility] [address] [place] [address] Dr. Soo Donnelly LEUKOCYTES Negative Normal NEGATIVE [facility] Comment on above: Performed By: #### U LG, CRP #### [facility] [address] [place] [address] Dr. Soo Donnelly Nitrite Ql (U) Negative Normal NEGATIVE [facility] Comment on above: Performed By: #### U LG, CRP #### [facility] [address] [place] [address] Dr. Soo Donnelly pH (U) 6.0 [pH] Normal 5-9 [facility] Comment on above: Performed By: #### U LG, CRP #### [facility] [address] [address] [address] Soo Donnelly SPEC GRAVITY 1.015 Normal 1.005-<=1.02 5 [facility] Comment on above: Performed By: #### U LG, CRP #### [facility] [address] [place] [address] Dr. Soo Donnelly UA PROTEIN Negative Normal NEGATIVE/ TRACE [facility] Comment on above: Performed By: #### U LG, CRP #### [facility] [address] [address] [address] Soo Donnelly UR MICRO IND NOT INDICATED Normal [facility] Comment on above: Performed By: #### U LG, CRP #### [facility] [address] [address] [address] Soo Donnelly Urobilinogen Qn (U) 0.2 {Roma'U}/dL Normal 0.2 - 1. 0 [facility] Comment on above: Performed By: #### U LG, CRP #### [facility] [address] [address] [address] Soo Donnelly PROF CHEM 8 (BAS METB)on Anion gap [Moles/Vol] 10.2 mmol/L Normal [facility] Comment on above: Performed By: #### B MP #### [facility] [address] [place] [address] Dr. Soo Donnelly Calcium [Mass/Vol] 8.7 mg/dL Normal 8.5-10.1 [facility] Comment on above: Performed By: #### B MP #### [facility] [address] [place] [address] Dr. Soo Donnelly Chloride [Moles/Vol] 103 mmol/L Normal 98-107 [facility] Comment on above: Performed By: #### B MP #### [facility] [address] [place] [address] Dr. Soo Donnelly CO2 [Moles/Vol] 27.9 mmol/L Normal 21.0-32.0 [facility] Comment on above: Performed By: #### B MP #### [facility] [address] [place] [address] Dr. Soo Donnelly Creatinine [Mass/Vol] 0.80 mg/dL Normal 0.55-1.02 [facility] Comment on above: Performed By: #### B MP #### [facility] [address] [place] [address] Dr. Soo Donnelly EGFR-AF [place]ER >60 Normal >=60 [facility] Comment on above: Performed By: #### B MP #### [facility] [address] [address] [address] Soo Donnelly EGFR-NON AF [place]ER >60 Normal >=60 [facility] Comment on above: Performed By: #### B MP #### [facility] [address] [address] [address] Soo Donnelly Glucose [Mass/Vol] 103 mg/dL Normal 74-106 [facility] Comment on above: Performed By: #### B MP #### [facility] [address] [address] [address] Soo Donnelly Potassium [Moles/Vol] 4.1 mmol/L Normal 3.5-5.1 [facility] Comment on above: Performed By: #### B MP #### [facility] [address] [address] [address] Soo Donnelly Sodium [Moles/Vol] 137 mmol/L Normal 136-145 [facility] Comment on above: Performed By: #### B MP #### [facility] [address] [address] [address] Soo Donnelly Urea nitrogen [Mass/Vol] 11.0 mg/dL Normal 7.0-18.0 [facility] Comment on above: Performed By: #### B MP #### [facility] [address] [address] [address] Soo Donnelly Urea nitrogen/Creatinine [Mass ratio] 13.8 mg/mg Normal [facility] Comment on above: Performed By: #### B MP #### [facility] [address] [address] [address] Soo Donnelly XR KUB 1 VIEWon [...] ELENA SAUCEDA Date: 2022-09-18 12:12 Normal [facility] MAMM SCREEN 3D DEAN CADon 09-12-2022 MG MAMM SCREEN 3D DEAN CAD Patient: HORACIO KEATING Exam Date: 09/12/2022 : 1975 Gender:F Ordering : DR DELGADO MURILLO . Admission #: [id number] Family : Order #: [id number] CLICK HERE TO VIEW EXAM RADIOLOGY REPORT [...] at age 77. LOCATION: [facility] BREAST COMPOSITION: Scattered areas fibroglandular [...] MD on 09/13/2022 at 07:46 Normal [facility] INSULINon 07-20-2022 Insulin 25.5 uIU/mL Critically high 2.6-24.9 [facility] Comment on above: Performed By: #### U LG, CRP #### [facility] [address] [address] [address] Soo Donnelly T4 LABCORPon 07-20-2022 T4 [Mass/Vol] 7.4 ug/dL Normal 4.5-12.0 [facility] Comment on above: Performed By: #### A NAD #### [facility] [address] [place] [address] [id number] [address] Soo Donnelly CBC W MANUAL DIFFon 07-19-20 22 ATYPICAL LYMPH # Normal [facility] Comment on above: Performed By: #### B UN, CREA #### [facility] [address] [place] [address] Dr. Soo Donnelly ATYPICAL LYMPH % Normal [facility] Comment on above: Performed By: #### B UN, CREA #### [facility] [address] [place] [address] Dr. Soo Donnelly BAND # Normal 0.0-0.3 [facility] Comment on above: Performed By: #### B UN, CREA #### [facility] [address] [place] [address] Dr. Soo Donnelly BAND % Normal 0-5 [facility] Comment on above: Performed By: #### B UN, CREA #### [facility] [address] [place] [address] Dr. Soo Donnelly BASOM # 0.00 103/ul Normal 0.00-0.10 [facility] Comment on above: Performed By: #### B UN, CREA #### [facility] [address] [place] [address] Dr. Soo Donnelly BASOM % 0.0 % Critically low 0.2-2.0 [facility] Comment on above: Performed By: #### B UN, CREA #### [facility] [address] [place] [address] Dr. Soo Donnelly BLAST # Normal [facility] Comment on above: Performed By: #### B UN, CREA #### [facility] [address] [place] [address] Dr. Soo Donnelly BLAST % Normal [facility] Comment on above: Performed By: #### B UN, CREA #### [facility] [address] [place] [address] Dr. Soo Donnelly CORRECTED WBC Normal 4.0-11.0 [facility] Comment on above: Performed By: #### B UN, CREA #### [facility] [address] [place] [address] Dr. Soo Donnelly EOS # 0.31 103/ul Normal 0.00-0.70 [facility] Comment on above: Performed By: #### B UN, CREA #### [facility] [address] [place] [address] Dr. Soo Donnelly EOS% 2.0 % Normal 0.9-7.0 [facility] Comment on above: Performed By: #### B UN, CREA #### [facility] [address] [place] [address] Dr. Soo Donnelly HCT 41.6 % Normal 36.0-48.0 [facility] Comment on above: Performed By: #### B UN, CREA #### [facility] [address] [place] [address] Dr. oSo Donnelly HGB 13.8 g/dl Normal 12.0-16.0 [facility] Comment on above: Performed By: #### B UN, CREA #### [facility] [address] [place] [address] Dr. Soo Donnelly LYMPHM # 5.27 103/ul Critically high 1.20-3.80 [facility] Comment on above: Performed By: #### B UN, CREA #### [facility] [address] [place] [address] Dr. Soo Donnelly LYMPHM% 34.0 % Normal 20.5-60.0 [facility] Comment on above: Performed By: #### B UN, CREA #### [facility] [address] [place] [address] Dr. Soo Donnelly MCH 31.5 pg Normal 26.7-34.0 [facility] Comment on above: Performed By: #### B UN, CREA #### [facility] [address] [place] [address] Dr. Soo Donnelly MCHC 33.2 g/dl Normal 29.9-35.2 [facility] Comment on above: Performed By: #### B UN, CREA #### [facility] [address] [place] [address] Dr. Soo Donnelly MCV 95.0 fL Normal 81.0-99.0 [facility] Comment on above: Performed By: #### B UN, CREA #### [facility] [address] [place] [address] Dr. Soo Donnelly METAMYELOCYTE # Normal [facility] Comment on above: Performed By: #### B UN, CREA #### [facility] [address] [place] [address] Dr. Soo Donnelly METAMYELOCYTE % Normal [facility] Comment on above: Performed By: #### B UN, CREA #### [facility] [address] [place] [address] Dr. Soo Donnelly MONOM# 0.93 103/ul Critically high 0.30-0.80 [facility] Comment on above: Performed By: #### B UN, CREA #### [facility] [address] [place] [address] Dr. Soo Donnelly MONOM% 6.0 % Normal 1.7-12.0 [facility] Comment on above: Performed By: #### B UN, CREA #### [facility] [address] [place] [address] Dr. Soo Donnelly MPV 10.1 fL Normal 9.5-13.5 [facility] Comment on above: Performed By: #### B UN, CREA #### [facility] [address] [place] [address] Dr. Soo Donnelly MYELOCYTE # Normal [facility] Comment on above: Performed By: #### B UN, CREA #### [facility] [address] [place] [address] Dr. Soo Donnelly MYELOCYTE % Normal [facility] Comment on above: Performed By: #### B UN, CREA #### [facility] [address] [place] [address] Dr. Soo Donnelly NRBC Normal [facility] Comment on above: Performed By: #### B UN, CREA #### [facility] [address] [place] [address] Dr. Soo Donnelly PLT 260 103/ul Normal 150-450 [facility] Comment on above: Performed By: #### B UN, CREA #### [facility] [address] [address] [address] Soo Donnelly RBC 4.38 106/ul Normal 4.20-5.40 [facility] Comment on above: Performed By: #### B UN, CREA #### [facility] [address] [address] [address] Soo Donnelly RDW 12.5 % Normal 11.0-15.0 [facility] Comment on above: Performed By: #### B UN, CREA #### [facility] [address] [address] [address] Soo Donnelly SEG # 8.99 103/ul Critically high 1.40-6.50 [facility] Comment on above: Performed By: #### B UN, CREA #### [facility] [address] [address] [address] Soo Donnelly SEG % 58.0 % Normal 43.0-75.0 [facility] Comment on above: Performed By: #### B UN, CREA #### [facility] [address] [address] [address] Soo Donnelly WBC 15.5 103/ul Critically high 4.0-11.0 [facility] Comment on above: Performed By: #### B UN, CREA #### [facility] [address] [address] [address] Soo Donnelly FREE T3on 07-19-2022 FREE T3 2.62 pg/mlL Normal 2.18-3.98 [facility] Comment on above: Performed By: #### U LG, CRP #### [facility] [address] [address] [address] Soo Donnelly GLYCOHEMOGLOBIN A1Con 2021 ADA RECOMMENDATION SEE BELOW Normal [facility] Comment on above: Result Comment: ADA RECOMMENDED LIMIT 4.0 - 6.0 ADA THERAPEUTIC TARGET < 7.0 ACTION SUGGESTED > 7.0 Performed By: #### U LG, CRP #### [facility] [address] [address] [address] Soo Donnelly Glucose [Mass/Vol] 137 mg/dL Normal [facility] Comment on above: Performed By: #### U LG, CRP #### [facility] [address] [address] [address] Soo Donnelly HbA1c (Bld) [Mass fraction] 6.4 % Critically high 4.5-6.2 [facility] Comment on above: Performed By: #### U LG, CRP #### [facility] [address] [address] [address] Soo Donnelly LIPID PROFILEon 07-19-2022 CHOL-HDL RATIO NORM SEE BELOW Normal [facility] Comment on above: Result Comment: 3.3 - 4.4 LOW RISK 4.4 - 7.1 AVERAGE RISK 7.1 - 11.0 MODERATE RISK >11.0 HIGH RISK Performed By: #### U LG, CRP #### [facility] [address] [address] [address] Soo Donnelly Cholesterol [Mass/Vol] 226 mg/dL Critically high <=200 [facility] Comment on above: Performed By: #### U LG, CRP #### [facility] [address] [address] [address] Soo Donnelly Cholesterol in HDL [Mass/Vol] 33 mg/dL Critically low 40-60 [facility] Comment on above: Performed By: #### U LG, CRP #### [facility] [address] [address] [address] Soo Donnelly Cholesterol in LDL [Mass/Vol] 135.2 mg/dL Normal [facility] Comment on above: Performed By: #### U LG, CRP #### [facility] [address] [address] [address] Soo Donnelly Cholesterol.total/Mirta sterol in HDL [Mass ratio] 6.8 {ratio} Normal [facility] Comment on above: Performed By: #### U LG, CRP #### [facility] [address] [address] [address] Soo Donnelly HDL NORMAL > or = 60 mg/dl - LO W CARDIOVASCULAR RISK <40 mg/dl - HIGH CARDIOVASCULAR RISK Normal [facility] Comment on above: Performed By: #### U LG, CRP #### [facility] [address] [address] [address] Soo Donnelly LDL CALC NORMAL SEE BELOW Normal [facility] Comment on above: Result Comment: <100 mg/dl OPTIMAL 100 - 129 mg/dl NEAR OR ABOVE OPTIMAL 130 - 159 mg/dl BORDERLINE HIGH 160 - 189 mg/dl HIGH >190 mg/dl VERY HIGH Performed By: #### U LG, CRP #### [facility] [address] [address] [address] Soo Donnelly Triglyceride [Mass/Vol] 289 mg/dL Critically high <=150 [facility] Comment on above: Performed By: #### U LG, CRP #### [facility] [address] [address] [address] Soo Donnelly VLDL CALC 57.8 mg/dL Normal [facility] Comment on above: Performed By: #### U LG, CRP #### [facility] [address] [address] [address] Soo Donnelly PROF 14(COMP METB)on 022 Albumin [Mass/Vol] 3.2 g/dL Critically low 3.4-5.0 [facility] Comment on above: Performed By: #### U LG, CRP #### [facility] [address] [address] [address] Soo Donnelly Albumin/Globulin [Mass ratio] 1.1 {ratio} Normal [facility] Comment on above: Performed By: #### U LG, CRP #### [facility] [address] [address] [address] Soo Donnelly ALP [Catalytic activity/Vol] 41 U/L Critically low 46-116 [facility] Comment on above: Performed By: #### U LG, CRP #### [facility] [address] [address] [address] Soo Donnelly ALT [Catalytic activity/Vol] 46 U/L Normal 14-59 [facility] Comment on above: Performed By: #### U LG, CRP #### [facility] [address] [address] [address] Soo Donnelly Anion gap [Moles/Vol] 9.3 mmol/L Normal [facility] Comment on above: Performed By: #### U LG, CRP #### [facility] [address] [address] [address] Soo Donnelly AST [Catalytic activity/Vol] 18 U/L Normal 15-37 [facility] Comment on above: Performed By: #### U LG, CRP #### [facility] [address] [address] [address] Soo Donnelly Bilirubin [Mass/Vol] 0.7 mg/dL Normal 0.2-1.0 [facility] Comment on above: Performed By: #### U LG, CRP #### [facility] [address] [address] [address] Soo Donnelly Calcium [Mass/Vol] 8.1 mg/dL Critically low 8.5-10.1 [facility] Comment on above: Performed By: #### U LG, CRP #### [facility] [address] [address] [address] Soo Donnelly Chloride [Moles/Vol] 101 mmol/L Normal 98-107 [facility] Comment on above: Performed By: #### U LG, CRP #### [facility] [address] [address] [address] Soo Donnelly CO2 [Moles/Vol] 31.1 mmol/L Normal 21.0-32.0 [facility] Comment on above: Performed By: #### U LG, CRP #### [facility] [address] [address] [address] Soo Donnelly Creatinine [Mass/Vol] 0.77 mg/dL Normal 0.55-1.02 [facility] Comment on above: Performed By: #### U LG, CRP #### [facility] [address] [address] [address] Soo Donnelly EGFR-AF [place]ER >60 Normal >=60 [facility] Comment on above: Performed By: #### U LG, CRP #### [facility] [address] [address] [address] Soo Donnelly EGFR-NON AF [place]ER >60 Normal >=60 [facility] Comment on above: Performed By: #### U LG, CRP #### [facility] [address] [address] [address] Soo Donnelly Globulin (S) [Mass/Vol] 3.0 g/dL Normal [facility] Comment on above: Performed By: #### U LG, CRP #### [facility] [address] [address] [address] Soo Donnelly Glucose [Mass/Vol] 104 mg/dL Normal 74-106 [facility] Comment on above: Performed By: #### U LG, CRP #### [facility] [address] [address] [address] Soo Donnelly Potassium [Moles/Vol] 3.4 mmol/L Critically low 3.5-5.1 [facility] Comment on above: Performed By: #### U LG, CRP #### [facility] [address] [address] [address] Soo Donnelly Protein [Mass/Vol] 6.2 g/dL Critically low 6.4-8.2 [facility] Comment on above: Performed By: #### U LG, CRP #### [facility] [address] [address] [address] Soo Donnelly Sodium [Moles/Vol] 138 mmol/L Normal 136-145 [facility] Comment on above: Performed By: #### U LG, CRP #### [facility] [address] [address] [address] Soo Donnelly Urea nitrogen [Mass/Vol] 16.0 mg/dL Normal 7.0-18.0 [facility] Comment on above: Performed By: #### U LG, CRP #### [facility] [address] [address] [address] Soo Donnelly Urea nitrogen/Creatinine [Mass ratio] 20.8 mg/mg Normal [facility] Comment on above: Performed By: #### U LG, CRP #### [facility] [address] [address] [address] Soo Donnelly TSHon 07-19-2022 TSH 3.262 uIU/mL Normal 0.358-3.740 [facility] Comment on above: Performed By: #### U LG, CRP #### [facility] [address] [address] [address] Soo Donnelly CBC AUTO DIFFon 05-18-2022 BASO # 0.0 103/ul Normal 0.0-0.1 [facility] Comment on above: Performed By: #### U LG, CRP #### [facility] [address] [address] [address] Soo Donnelly Basophils/100 WBC (Bld) 0.2 % Normal 0.2-2.0 [facility] Comment on above: Performed By: #### U LG, CRP #### [facility] [address] [address] [address] Soo Donnelly EO # 0.0 103/ul Normal 0.0-0.7 [facility] Comment on above: Performed By: #### U LG, CRP #### [facility] [address] [address] [address] Soo Donnelly Eosinophils/100 WBC (Bld) 0.2 % Critically low 0.9-7.0 [facility] Comment on above: Performed By: #### U LG, CRP #### [facility] [address] [address] [address] Soo Donnelly Erythrocyte distribution width (RBC) [Ratio] 12.8 % Normal 11.0-15.0 [facility] Comment on above: Performed By: #### U LG, CRP #### [facility] [address] [address] [address] Soo Donnelly Hematocrit (Bld) [Volume fraction] 35.7 % Critically low 36.0-48.0 [facility] Comment on above: Performed By: #### U LG, CRP #### [facility] [address] [address] [address] Soo Dnonelly Hemoglobin (Bld) [Mass/Vol] 11.5 g/dL Critically low 12.0-16.0 [facility] Comment on above: Performed By: #### U LG, CRP #### [facility] [address] [place] [address] Dr. Soo Donnelly IG # 0.07 10e3/ul Critically high 0.00-0.03 [facility] Comment on above: Performed By: #### U LG, CRP #### [facility] [address] [place] [address] Dr. Soo Donnelly IG % 0.5 % Normal 0.0-0.5 [facility] Comment on above: Performed By: #### U LG, CRP #### [facility] [address] [place] [address] Dr. Soo Donnelly LYMPH # 4.1 103/ul Critically high 1.2-3.8 [facility] Comment on above: Performed By: #### U LG, CRP #### [facility] [address] [place] [address] Dr. Soo Donnelly Lymphocytes/100 WBC (Bld) 28.3 % Normal 20.5-60.0 [facility] Comment on above: Performed By: #### U LG, CRP #### [facility] [address] [place] [address] Dr. Soo Donnelly MANUAL DIFF REQ NO Normal [facility] Comment on above: Performed By: #### U LG, CRP #### [facility] [address] [place] [address] Dr. Soo Donnelly MCH (RBC) [Entitic mass] 31.7 pg Normal 26.7-34.0 [facility] Comment on above: Performed By: #### U LG, CRP #### [facility] [address] [place] [address] Dr. Soo Donnelly MCHC (RBC) [Mass/Vol] 32.2 g/dL Normal 29.9-35.2 [facility] Comment on above: Performed By: #### U LG, CRP #### [facility] [address] [place] [address] Dr. Soo Donnelly MCV (RBC) [Entitic vol] 98.3 fL Normal 81.0-99.0 [facility] Comment on above: Performed By: #### U LG, CRP #### [facility] [address] [place] [address] Dr. Soo Donnelly MONO # 0.8 103/ul Normal 0.3-0.8 [facility] Comment on above: Performed By: #### U LG, CRP #### [facility] [address] [place] [address] Dr. Soo Donnelly Monocytes/100 WBC (Bld) 5.6 % Normal 1.7-12.0 [facility] Comment on above: Performed By: #### U LG, CRP #### [facility] Laboratory [address] [place] [address] Dr. Soo Donnelly NEUT # 9.4 103/ul Critically high 1.4-6.5 [facility] Comment on above: Performed By: #### U LG, CRP #### [facility] Laboratory [address] [place] [address] Dr. Soo Donnelly Neutrophils/100 WBC (Bld) 65.2 % Normal 43.0-75.0 [facility] Comment on above: Performed By: #### U LG, CRP #### [facility] Laboratory [address] [place] [address] Dr. Soo Donnelly Platelet mean volume (Bld) [Entitic vol] 10.8 fL Normal 9.5-13.5 [facility] Comment on above: Performed By: #### U LG, CRP #### [facility] Laboratory [address] [place] [address] Dr. Soo Donnelly PLT 191 103/ul Normal 150-450 [facility] Comment on above: Performed By: #### U LG, CRP #### [facility] Laboratory [address] [place] [address] Dr. Soo Donnelly RBC 3.63 106/ul Critically low 4.20-5.40 [facility] Comment on above: Performed By: #### U LG, CRP #### [facility] Laboratory [address] [place] [address] Dr. Soo Donnelly WBC 14.4 103/ul Critically high 4.0-11.0 [facility] Comment on above: Performed By: #### U LG, CRP #### [facility] Laboratory [address] [place] [address] Dr. Soo Donnelly BUNon 05-17-2022 Urea nitrogen [Mass/Vol] 8.0 mg/dL Normal 7.0-18.0 [facility] Comment on above: Performed By: #### B UN, CREA #### [facility] Laboratory [address] [place] [address] Dr. Soo Donnelly CBC AUTO DIFFon 05-17-2022 BASO # 0.0 103/ul Normal 0.0-0.1 [facility] Comment on above: Performed By: #### U LG, CRP #### [facility] Laboratory [address] [place] [address] Dr. Soo Donnelly Basophils/100 WBC (Bld) 0.1 % Critically low 0.2-2.0 [facility] Comment on above: Performed By: #### U LG, CRP #### [facility] Laboratory [address] [place] [address] Dr. Soo Donnelly EO # 0.0 103/ul Normal 0.0-0.7 [facility] Comment on above: Performed By: #### U LG, CRP #### [facility] Laboratory [address] [place] [address] Dr. Soo Donnelly Eosinophils/100 WBC (Bld) 0.0 % Critically low 0.9-7.0 [facility] Comment on above: Performed By: #### U LG, CRP #### [facility] Laboratory [address] [place] [address] Dr. Soo Donnelly Erythrocyte distribution width (RBC) [Ratio] 12.5 % Normal 11.0-15.0 [facility] Comment on above: Performed By: #### U LG, CRP #### [facility] Laboratory [address] [place] [address] Dr. Soo Donnelly Hematocrit (Bld) [Volume fraction] 38.5 % Normal 36.0-48.0 [facility] Comment on above: Performed By: #### U LG, CRP #### [facility] Laboratory [address] [address] [address] Soo Donnelly Hemoglobin (Bld) [Mass/Vol] 13.0 g/dL Normal 12.0-16.0 [facility] Comment on above: Performed By: #### U LG, CRP #### [facility] Laboratory [address] [address] [address] Soo Donnelly IG # 0.16 10e3/ul Critically high 0.00-0.03 [facility] Comment on above: Performed By: #### U LG, CRP #### [facility] Laboratory [address] [address] [address] Soo Donnelly IG % 0.7 % Critically high 0.0-0.5 [facility] Comment on above: Performed By: #### U LG, CRP #### [facility] Laboratory [address] [place] [address] Dr. Soo Donnelly LYMPH # 3.0 103/ul Normal 1.2-3.8 [facility] Comment on above: Performed By: #### U LG, CRP #### [facility] Laboratory [address] [address] [address] Soo Donnelly Lymphocytes/100 WBC (Bld) 12.2 % Critically low 20.5-60.0 [facility] Comment on above: Performed By: #### U LG, CRP #### [facility] Laboratory [address] [address] [address] Soo Donnelly MANUAL DIFF REQ NO Normal [facility] Comment on above: Performed By: #### U LG, CRP #### [facility] Laboratory [address] [address] [address] Soo Donnelly MCH (RBC) [Entitic mass] 32.4 pg Normal 26.7-34.0 [facility] Comment on above: Performed By: #### U LG, CRP #### [facility] Laboratory [address] [address] [address] Soo Donnelly MCHC (RBC) [Mass/Vol] 33.8 g/dL Normal 29.9-35.2 [facility] Comment on above: Performed By: #### U LG, CRP #### [facility] Laboratory [address] [address] [address] Soo Donnelly MCV (RBC) [Entitic vol] 96.0 fL Normal 81.0-99.0 [facility] Comment on above: Performed By: #### U LG, CRP #### [facility] Laboratory [address] [place] [address] Dr. Soo Donnelly MONO # 1.3 103/ul Critically high 0.3-0.8 [facility] Comment on above: Performed By: #### U LG, CRP #### [facility] Laboratory [address] [place] [address] Dr. Soo Donnelly Monocytes/100 WBC (Bld) 5.4 % Normal 1.7-12.0 [facility] Comment on above: Performed By: #### U LG, CRP #### [facility] Laboratory [address] [place] [address] Dr. Soo Donnelly NEUT # 19.8 103/ul Critically high 1.4-6.5 [facility] Comment on above: Performed By: #### U LG, CRP #### [facility] Laboratory [address] [place] [address] Dr. Soo Donnelly Neutrophils/100 WBC (Bld) 81.6 % Critically high 43.0-75.0 [facility] Comment on above: Performed By: #### U LG, CRP #### [facility] [address] [place] [address] Dr. Soo Donnelly Platelet mean volume (Bld) [Entitic vol] 10.5 fL Normal 9.5-13.5 [facility] Comment on above: Performed By: #### U LG, CRP #### [facility] [address] [place] [address] Dr. Soo Donnelly PLT 253 103/ul Normal 150-450 [facility] Comment on above: Performed By: #### U LG, CRP #### [facility] [address] [place] [address] Dr. Soo Donnelly RBC 4.01 106/ul Critically low 4.20-5.40 [facility] Comment on above: Performed By: #### U LG, CRP #### [facility] [address] [address] [address] Soo Donnelly WBC 24.3 103/ul Critically high 4.0-11.0 [facility] Comment on above: Performed By: #### U LG, CRP #### [facility] Laboratory [address] [place] [address] Dr. Soo Donnelly BASO # 0.0 103/ul Normal 0.0-0.1 [facility] Comment on above: Performed By: #### U LG, CRP #### [facility] [address] [place] [address] Dr. Soo Donnelly Basophils/100 WBC (Bld) 0.1 % Critically low 0.2-2.0 [facility] Comment on above: Performed By: #### U LG, CRP #### [facility] [address] [place] [address] Dr. Soo Donnelly EO # 0.0 103/ul Normal 0.0-0.7 [facility] Comment on above: Performed By: #### U LG, CRP #### [facility] [address] [place] [address] Dr. Soo Donnelly Eosinophils/100 WBC (Bld) 0.0 % Critically low 0.9-7.0 [facility] Comment on above: Performed By: #### U LG, CRP #### [facility] [address] [place] [address] Dr. Soo Donnelly Erythrocyte distribution width (RBC) [Ratio] 12.3 % Normal 11.0-15.0 [facility] Comment on above: Performed By: #### U LG, CRP #### [facility] [address] [place] [address] Dr. Soo Donnelly Hematocrit (Bld) [Volume fraction] 41.2 % Normal 36.0-48.0 [facility] Comment on above: Performed By: #### U LG, CRP #### [facility] [address] [place] [address] Dr. Soo Donnelly Hemoglobin (Bld) [Mass/Vol] 13.5 g/dL Normal 12.0-16.0 [facility] Comment on above: Performed By: #### U LG, CRP #### [facility] [address] [address] [address] Soo Donnelly IG # 0.11 10e3/ul Critically high 0.00-0.03 [facility] Comment on above: Performed By: #### U LG, CRP #### [facility] [address] [address] [address] Soo Donnelly IG % 0.5 % Normal 0.0-0.5 [facility] Comment on above: Performed By: #### U LG, CRP #### [facility] [address] [place] [address] Dr. Soo Donnelly LYMPH # 1.6 103/ul Normal 1.2-3.8 [facility] Comment on above: Performed By: #### U LG, CRP #### [facility] [address] [place] [address] Dr. Soo Donnelly Lymphocytes/100 WBC (Bld) 7.8 % Critically low 20.5-60.0 [facility] Comment on above: Performed By: #### U LG, CRP #### [facility] [address] [place] [address] Dr. Soo Donnelly MANUAL DIFF REQ NO Normal [facility] Comment on above: Performed By: #### U LG, CRP #### [facility] Laboratory [address] [place] [address] Dr. Soo Donnelly MCH (RBC) [Entitic mass] 31.8 pg Normal 26.7-34.0 [facility] Comment on above: Performed By: #### U LG, CRP #### [facility] [address] [place] [address] Dr. Soo Donnelly MCHC (RBC) [Mass/Vol] 32.8 g/dL Normal 29.9-35.2 [facility] Comment on above: Performed By: #### U LG, CRP #### [facility] [address] [place] [address] Dr. Soo Donnelly MCV (RBC) [Entitic vol] 96.9 fL Normal 81.0-99.0 [facility] Comment on above: Performed By: #### U LG, CRP #### [facility] [address] [place] [address] Dr. Soo Donnelly MONO # 0.4 103/ul Normal 0.3-0.8 [facility] Comment on above: Performed By: #### U LG, CRP #### [facility] [address] [place] [address] Dr. Soo Donnelly Monocytes/100 WBC (Bld) 2.0 % Normal 1.7-12.0 [facility] Comment on above: Performed By: #### U LG, CRP #### [facility] [address] [place] [address] Dr. Soo Donnelly NEUT # 18.1 103/ul Critically high 1.4-6.5 [facility] Comment on above: Performed By: #### U LG, CRP #### [facility] Laboratory [address] [place] [address] Dr. Soo Donnelly Neutrophils/100 WBC (Bld) 89.6 % Critically high 43.0-75.0 [facility] Comment on above: Performed By: #### U LG, CRP #### [facility] [address] [place] [address] Dr. Soo Donnelly Platelet mean volume (Bld) [Entitic vol] 11.0 fL Normal 9.5-13.5 [facility] Comment on above: Performed By: #### U LG, CRP #### [facility] [address] [place] [address] Dr. Soo Donnelly PLT 223 103/ul Normal 150-450 [facility] Comment on above: Performed By: #### U LG, CRP #### [facility] [address] [place] [address] Dr. Soo Donnelly RBC 4.25 106/ul Normal 4.20-5.40 [facility] Comment on above: Performed By: #### U LG, CRP #### [facility] [address] [place] [address] Dr. Soo Donnelly WBC 20.2 103/ul Critically high 4.0-11.0 [facility] Comment on above: Performed By: #### U LG, CRP #### [facility] [address] [address] [address] Soo Donnelly CREATININEon 05-17-2022 Creatinine [Mass/Vol] 0.97 mg/dL Normal 0.55-1.02 [facility] Comment on above: Performed By: #### B UN, CREA #### [facility] [address] [address] [address] Soo Donnelly EGFR-AF [place]ER >60 Normal >=60 [facility] Comment on above: Performed By: #### B UN, CREA #### [facility] [address] [address] [address] Soo Donnelly EGFR-NON AF [place]ER >60 Normal >=60 [facility] Comment on above: Performed By: #### B UN, CREA #### [facility] Laboratory [address] [address] [address] Soo Donnelly CTA CHEST WO W [...] ELENA SAUCEDA Date: 2022-05-17 16:40 Normal [facility] XR CHEST 2 Von 05-17-2022 [...] SAMI JONES Date: 2022-05-17 16:10 Normal [facility] CBC AUTO DIFFon 05-16-2022 BASO # 0.1 103/ul Normal 0.0-0.1 [facility] Comment on above: Performed By: #### B , CREA #### [facility] Laboratory [address] [place] [address] Dr. Soo Donnelly Basophils/100 WBC (Bld) 0.5 % Normal 0.2-2.0 [facility] Comment on above: Performed By: #### B , CREA #### [facility] [address] [place] [address] Dr. Soo Donnelly EO # 0.1 103/ul Normal 0.0-0.7 [facility] Comment on above: Performed By: #### B , CREA #### [facility] [address] [place] [address] Dr. Soo Donnelly Eosinophils/100 WBC (Bld) 1.0 % Normal 0.9-7.0 [facility] Comment on above: Performed By: #### B UN, CREA #### [facility] [address] [place] [address] Dr. Soo Donnelly Erythrocyte distribution width (RBC) [Ratio] 12.2 % Normal 11.0-15.0 [facility] Comment on above: Performed By: #### B JOANNA, CREA #### [facility] [address] [place] [address] Dr. Soo Donnelly Hematocrit (Bld) [Volume fraction] 41.2 % Normal 36.0-48.0 [facility] Comment on above: Performed By: #### B UN, CREA #### [facility] [address] [place] [address] Dr. Soo Donnelly Hemoglobin (Bld) [Mass/Vol] 13.9 g/dL Normal 12.0-16.0 [facility] Comment on above: Performed By: #### B UN, CREA #### [facility] [address] [place] [address] Dr. Soo Donnelly IG # 0.04 10e3/ul Critically high 0.00-0.03 [facility] Comment on above: Performed By: #### B UN, CREA #### [facility] [address] [place] [address] Dr. Soo Donnelly IG % 0.4 % Normal 0.0-0.5 [facility] Comment on above: Performed By: #### B UN, CREA #### [facility] [address] [place] [address] Dr. Soo Donnelly LYMPH # 3.5 103/ul Normal 1.2-3.8 [facility] Comment on above: Performed By: #### B UN, CREA #### [facility] [address] [place] [address] Dr. Soo Donnelly Lymphocytes/100 WBC (Bld) 35.3 % Normal 20.5-60.0 [facility] Comment on above: Performed By: #### B UN, CREA #### [facility] [address] [place] [address] Dr. Soo Donnelly MANUAL DIFF REQ NO Normal [facility] Comment on above: Performed By: #### B UN, CREA #### [facility] [address] [place] [address] Dr. Soo Donnelly MCH (RBC) [Entitic mass] 31.7 pg Normal 26.7-34.0 [facility] Comment on above: Performed By: #### B UN, CREA #### [facility] [address] [place] [address] Dr. Soo Donnelly MCHC (RBC) [Mass/Vol] 33.7 g/dL Normal 29.9-35.2 [facility] Comment on above: Performed By: #### B UN, CREA #### [facility] [address] [place] [address] Dr. Soo Donnelly MCV (RBC) [Entitic vol] 94.1 fL Normal 81.0-99.0 [facility] Comment on above: Performed By: #### B UN, CREA #### [facility] [address] [place] [address] Dr. Soo Donnelly MONO # 0.5 103/ul Normal 0.3-0.8 [facility] Comment on above: Performed By: #### B UN, CREA #### [facility] [address] [place] [address] Dr. Soo Donnelly Monocytes/100 WBC (Bld) 5.4 % Normal 1.7-12.0 [facility] Comment on above: Performed By: #### B UN, CREA #### [facility] [address] [place] [address] Dr. Soo Donnelly NEUT # 5.6 103/ul Normal 1.4-6.5 [facility] Comment on above: Performed By: #### B UN, CREA #### [facility] [address] [place] [address] Dr. Soo Donnelly Neutrophils/100 WBC (Bld) 57.4 % Normal 43.0-75.0 [facility] Comment on above: Performed By: #### B UN, CREA #### [facility] [address] [place] [address] Dr. Soo Donnelly Platelet mean volume (Bld) [Entitic vol] 10.3 fL Normal 9.5-13.5 [facility] Comment on above: Performed By: #### B UN, CREA #### [facility] [address] [place] [address] Dr. Soo Donnelly PLT 235 103/ul Normal 150-450 [facility] Comment on above: Performed By: #### B UN, CREA #### [facility] [address] [address] [address] Soo Donnelly RBC 4.38 106/ul Normal 4.20-5.40 [facility] Comment on above: Performed By: #### B UN, CREA #### [facility] [address] [address] [address] Soo Donnelly WBC 9.8 103/ul Normal 4.0-11.0 [facility] Comment on above: Performed By: #### B UN, CREA #### [facility] [address] [address] [address] Soo Donnelly PREG QUANT HCGon 05-16-2022 HCG QUANT <1 Normal [facility] Comment on above: Performed By: #### U LG, CRP #### [facility] [address] [address] [address] Soo Donnelly HCG RANGE SEE BELOW Normal [facility] Comment on above: Result Comment: 5-50 0-1 WEEK 40-300 1-2 WEEKS 100-1,000 2-3 WEEKS 500-6,000 3-4 WEEKS 5,000-200,000 1-2 MONTHS 10,000-100,000 2-3 MONTHS 3,000-50,000 2ND TRIMESTER 1,000-50,000 3RD TRIMESTER Performed By: #### U LG, CRP #### [facility] [address] [place] [address] Dr. Soo Donnelly Covid-19 PCR (CVDTBH)on 05-01 SARS-CoV-2 (COVID-19) RNA NOLA+probe Ql (Unsp spec) Not detected Normal NOT DETECTED [facility] Comment on above: Result Comment: This test is not yet approved or cleared by the [place] FDA. When there are no FDA-approved or cleared tests available, and other criteria are met, FDA can make tests available under an emergency access mechanism called an Emergency Use Authorization (EUA). The EUA for this test is supported by the Ladle Cleaner of Health and Human Service's (HHS's) declaration [...] By: #### C VDTBH #### [facility] [address] [place] [address] Dr. Soo Donnelly TYPE AND SCREENon 05-13-2022 TYPE AND SCREEN Negative Normal [facility] Comment on above: Performed By: #### B UN, CREA #### [facility] [address] [place] [address] Dr. Soo Donnelly PAP ACOG PANEL 2: 30 to 65on 05-07-2022 . . Normal [facility] Comment on above: Result Comment: Perf ormed at: WB Performed By: #### [id number] #### [facility] [address] [place] [address] Dr. Soo Donnelly Age Gdln ACOG Testing 30-65 Normal [facility] Comment on above: Performed By: #### [id number] #### [facility] [address] [place] [address] Dr. Soo Donnelly DIAGNOSIS: Comment Normal [facility] Comment on above: Result Comment: NEGA TIVE FOR INTRAEPITHELIAL LESION OR MALIGNANCY. Performed at: WB Performed By: #### [id number] #### [facility] [address] [place] [address] Dr. Soo Donnelly HPV Aptima Negative Normal Negative [facility] Comment on above: Result Comment: This nucleic acid amplification test detects fourteen high-risk HPV types (16,18,31,33,35,39,45,51,52,56,58,59,66,68) without differentiation. Performed at: =G Performed By: #### [id number] #### [facility] [address] [place] [address] Dr. Soo Donnelly Methodology: Comment Normal [facility] Comment on above: Result Comment: This liquid based ThinPrep(R) pap test was screened with the use of an image guided system. Performed at: WB Performed By: #### [id number] #### [facility] [address] [place] [address] Dr. Soo Donnelly Note: Comment Normal [facility] Comment on above: Result Comment: The Pap smear is a screening test designed to aid in the detection of premalignant and malignant conditions of the uterine cervix. It is not a diagnostic procedure and should not be used as the sole means of detecting cervical cancer. Both false-positive and false-negative reports do occur. . Performed at: WB Performed By: #### [id number] #### [facility] [address] [place] [address] Dr. Soo Donnelly Performed by: Comment Normal [facility] Comment on above: Result Comment: Angel Rod, Solar Project Coordination Specialist (ASCP) Performed at: WB Performed By: #### [id number] #### [facility] [address] [place] [address] Dr. Soo Donnelly Specimen adequacy: Comment Normal [facility] Comment on above: Result Comment: Sati sfactory for evaluation. Endocervical and/or squamous metaplastic cells (endocervical component) are present. Performed at: WB Performed By: #### [id number] #### [facility] [address] [place] [address] Dr. Soo Donnelly ROSS by IFAon 02-21-2022 Antinuclear Antibodies, IFA Negative [facility] Comment on above: Result Comment: Nega tive <1:80 Borderline 1:80 Positive >1:80 ICAP nomenclature: [id number] For more information about Hep-2 cell patterns use ANApatterns.org, the official website for the International Consensus on Antinuclear Antibody (ROSS) Patterns (ICAP). Performed By: #### U LG, CRP #### [facility] [address] [place] [address] Dr. Soo Donnelly ROSS DIRECTon 03-23-2022 ROSS Direct Negative Normal Negative [facility] Comment on above: Performed By: #### A NAD #### [facility] [address] [place] [address] Dr. Soo Donnelly ANTISTREPTOLYSIN O AB (ASO)o n 02-20-2022 Antistreptolysin O Ab 115.3 IU/mL Normal 0.0-200.0 [facility] Comment on above: Performed By: #### B UN, CREA #### [facility] [address] [place] [address] Dr. Soo Donnelly C3 and C4 COMPLEMENTon 02-20 Complement C3, Serum 137 mg/dL Normal 82-167 [facility] Comment on above: Performed By: #### U LG, CRP #### [facility] [address] [place] [address] Dr. Soo Donnelly Complement C4, Serum 23 mg/dL Normal 12-38 [facility] Comment on above: Performed By: #### U LG, CRP #### [facility] [address] [place] [address] Dr. Soo Donnelly SLE PROFILE Aon 02-20-2022 Anti-DNA (DS) Ab Qn <1 Normal 0-9 [facility] [place] Comment on above: Result Comment: Nega tive <5 Equivocal 5 - 9 Positive >9 Performed By: #### S YARI #### [facility] [address] [place] [address] Dr. Soo Donnelly Antichromatin Antibodies <0.2 Normal 0.0-0.9 [facility] Comment on above: Performed By: #### S YARI #### [facility] [address] [place] [address] Dr. Soo Donnelly RA Latex Turbid. <10.0 Normal <14.0 [facility] Comment on above: Performed By: #### S YARI #### [facility] [address] [place] [address] Dr. Soo Donnelly MITTEN SEWER Antibodies <0.2 Normal 0.0-0.9 [facility] Comment on above: Performed By: #### S YARI #### [facility] [address] [place] [address] Dr. Soo Donnelly Sjogren's Anti-SS-A <0.2 Normal 0.0-0.9 [facility] [place] Comment on above: Performed By: #### S YARI #### [facility] [address] [place] [address] Dr. Soo Donnelly Sjogren's Anti-SS-B <0.2 Normal 0.0-0.9 [facility] Comment on above: Performed By: #### S YARI #### [facility] [address] [place] [address] Dr. Soo Donnelly Spann Antibodies <0.2 Normal 0.0-0.9 [facility] Comment on above: Performed By: #### S YARI #### [facility] [address] [place] [address] Dr. Soo Donnelly CRPon 02-19-2022 CRP [Mass/Vol] mg/L Normal <=1.0 [facility] Comment on above: Performed By: #### U LG, CRP #### [facility] [address] [place] [address] Dr. Soo Donnelly URIC ACID SERUMon 02-19-2022 Urate [Mass/Vol] 4.7 mg/dL Normal 2.5-6.2 [facility] Comment on above: Performed By: #### U LG, CRP #### [facility] [address] [place] [address] Dr. Soo Donnelly XR CSPINE MIN 4 [...] Date: 2022-02-19 16:33 Normal [facility] XR HAND DEAN MIN 3Von [...] Date: 2022-02-19 16:28 Normal [facility] ASYMPTOMATIC COVID-19 ANTIGE Non 12-04-2021 EUA Statement SEE BELOW Normal [facility] Comment on above: Result Comment: This test [...] By: #### C VDAGA #### [facility] [address] [place] [address] Dr. Soo Donnelly SARS-CoV-2 (COVID-19) RNA NOLA+probe Ql (Unsp spec) Negative Normal NEGATIVE [facility] Comment on above: Result Comment: Nega tive results are presumptive. They do not preclude infection and should not be used as the sole basis for treatment decisions. Additional confirmatory testing by a molecular method should be considered. Performed By: #### C VDAGA #### [facility] [address] [place] [id number] Soo Donnelly Covid-19 PCR (CVDTB)on SARS-CoV-2 (COVID-19) RNA NOLA+probe Ql (Unsp spec) Not detected Normal NOT DETECTED [facility] Comment on above: Result Comment: This test is not yet approved or cleared by the [place] FDA. When there are no FDA-approved or cleared tests available, and other criteria are met, FDA can make tests available under an emergency access mechanism called an Emergency Use Authorization (EUA). The EUA for this test is supported by the [employer] of Health and Human Service's (HHS's) declaration [...] #### U LG, CRP #### [facility] [address] [place], [place] [id number] Dr. Soo Donnelly Vital Signs Date Time Vital Sign Value Performing Clinician Facility 11-01-2022 15:19-0500 Blood Pressure Location [facility] 11-01-2022 15:19-0500 Diastolic blood pressure 80 mm[Hg] Nicola [employer] [facility] 11-01-2022 15:19-0500 Heart rate 72 /min Nicola [employer] [facility] 11-01-2022 15:19-0500 Respiratory rate 16 /min Nicola CANDEL[facility]eb[facility] 11-01-2022 15:19-0500 Systolic blood pressure 118 mm[Hg] Nicola NILL [facility] [place] 10-01-2022 16:30-0400 Body height 170.18 cm Clarice Scally Other [facility] Other 10-01-2022 16:30-0400 Body mass index (BMI) [Ratio] 32.84 kg/m2 Clarice Scally Other [facility] Other 10-01-2022 16:30-0400 Body weight 95.12 kg Clarice Scally Other [facility] Other 10-01-2022 16:30-0400 Diastolic blood pressure 82 mm[Hg] Clarice Scally Other [facility] Other 10-01-2022 16:30-0400 Respiratory rate 18 /min Clarice Scally Other [facility] Other 10-01-2022 16:30-0400 SaO2% (BldA) [Mass fraction] 97 % Clarice Scally Other [facility] Other 10-01-2022 16:30-0400 Systolic blood pressure 116 mm[Hg] Clarice Scally Other [facility] Other 08-28-2022 14:30-0400 Body height 170.18 cm Nahid Mccoy Other [facility] Other 08-28-2022 14:30-0400 Body mass index (BMI) [Ratio] 34.55 kg/m2 Nahid Mccoy Other [facility] Other 08-28-2022 14:30-0400 Body weight 100.06 kg Nahid Mccoy Other [facility] Other 08-28-2022 14:30-0400 Diastolic blood pressure 82 mm[Hg] Nahid Mccoy Other [facility] Other 08-28-2022 14:30-0400 Respiratory rate 18 /min Nahid Mccoy Other [facility] Other 08-28-2022 14:30-0400 SaO2% (BldA) [Mass fraction] 97 % Nahid Mccoy Other [facility] Other 08-28-2022 14:30-0400 Systolic blood pressure 121 mm[Hg] Nahid Mccoy Other [facility] Other Encounters Encounter Date Encounter Type Care [...] 09-20-2024 End: 09-20-2024 ambulatory [facility] Start: 09-09-2024 End: 09-09-2024 ambulatory Craol Webb PT Work Phone: [facility] Comment on above: Neck pain (Primary D x); Chronic bilateral low back pain with bilateral sciatica Start: 09-09-2024 End: 09-09-2024 Bamboo flowsheet Carol Webb PT Work Phone: [facility] Start: 09-09-2024 End: 09-09-2024 Bamboo flowsheet Carol Blandach PT Work Phone: [facility] Start: 08-30-2024 End: 08-30-2024 Departed Referred [facility] [address] Work Phone: Start: 08-30-2024 End: 08-30-2024 ambulatory NON STAFF [facility] Work Phone: Start: 04-05-2024 End: 04-05-2024 ambulatory DELGADO DIGGSZIO Not Available Start: 03-15-2024 End: 03-15-2024 Emergency department patient visit Nicola Kaelyn Neff Facility:[facility] Start: 10-22-2023 End: 10-22-2023 ambulatory JESSICA SANCHEZ Not Available Start: 08-15-2023 End: 08-15-2023 ambulatory NON STAFF [facility] Work Phone: Start: 08-15-2023 End: 08-15-2023 Departed [facility]erred [facility] [address] Work Phone: Start: 12-05-[address] SAMI MARINELLI Facility :[facility] Start: 11-09-2022 End: 11-10-[address] DOCTOR STEIN Facility:[facility] Start: 11-01-2022 End: 11-02-2022 ambulatory Nicola BUCHANAN Facility: [place] Start: 11-01-2022 End: 11-01-2022 Patient encounter procedure Nicola BUCHANAN [facility] [place] Start: 10-29-2022 End: 10-29-2022 ambulatory Clarice Hull Other [facility] Other Start: 10-29-2022 Telephone encounter Clarice [facility] Start: 10-14-2022 End: 10-14-2022 ambulatory Clarice Aldomegan Other [facility] Other Start: 10-14-2022 Telephone encounter Clarice [facility] Start: 10-04-2022 ambulatory Nicola CANDELARIOHamida Facility:[facility] Start: 10-01-2022 (FCCCWMNF/U) Weight Management f/u Clarice Hull [facility] Start: 10-01-2022 End: 10-02-[address] [facility]LE[facility]UCED[facility] Other Start: 09-19-2022 End: 09-19-2022 ambulatory Nahid Mccoy Other [facility] Other Start: 09-19-2022 Telephone encounter Nahid hark[facility] Start: 09-18-2022 End: 09-18-[address] LUZ ELENA SAUCEDA Facility:[facility] Start: 09-12-2022 End: 09-13-[address] ABIGAIL SHEEHAN Facility:[facility] Start: 08-28-2022 End: 08-28-2022 ambulatory Nahid Mccoy Other [facility] Other Start: 08-28-2022 Nutrition therapy Nahid Mccoy [facility] Start: 07-22-2022 Encounter for genera l adult medical examination without abnormal findings DR SAMI MARINELLI [facility] Start: 07-19-2022 End: 07-20-2022 ambulatory [...] for preprocedural laboratory examination DR DELGADO MURILLO [facility] Start: 05-13-2022 End: 05-14-[address] DELGADO MURILLO Facility:[facility] Start: 05-13-2022 End: 05-14-2022 Encounter for preprocedural laboratory examination DR DELGADO MURILLO Facility:[facility] Start: 05-11-2022 Encounter for preprocedural cardiovascular examination DR DELGADO MURILLO [facility] Start: 05-08-2022 End: 05-09-2022 ambulatory [...] Screening for malign ant neoplasm of colon [facility] Start: 10-23-2028 Screening for malign ant neoplasm of cervix [facility] Start: 11-27-2024 Screening for malign ant neoplasm of breast Mammogram [facility] Start: 11-22-2024 End: 11-22-2024 Patient encounter procedure 11/22/2024 1:00 PM EST Office Visit [facility] [address] [address] Delgado Murillo DO [address], [place] [address] [facility] Start: 09-27-2024 End: 09-27-2024 Patient encounter procedure 09/27/2024 3:10 PM EDT Office Visit [facility] [address] [place] [address] Delgado Murillo DO [address] [facility] [place] [address] Arrived [facility] Comment on above: Arrived Start: 09-09-2024 End: 09-09-2024 ambulatory 09/09/2024 4:00 PM EDT Evaluation [facility] [address] [place] [address] Carol Webb, PT [address] [place] [address] Arrived [facility] Comment on above: Arrived Start: 08-01-2024 Influenza vaccination Influenza Vacc ine (#1) [facility] Start: 1975 Screening for malign ant neoplasm of colon [facility] Immunizations Immunization Date Immunization Notes Care Provider Fa cility NEGATED: Highlighted row has not occurred!11-01-2022 influenza virus vaccine, unspecified formulation Nicola BUCHANAN [facility] [place] Payers Date Payer Category Payer Self-pay [id number] 2023 Private Health Insurance [employer] [id number] 2023 Unknown [id number]. 1.13.693.2. [id number] 1976 Unknown [id number] 2.16.840.1.066120.3.579.2. 727 1976 Unknown [id number] 2.16.840.1.835840.3.579.2. 593 1976 Unknown [id number] 2.16.840.1.766587.3.579.2. 593 1976 Unknown [id number] 2.16.840.1.150984.3.579.2. 593 1976 Unknown [id number] 2.16.840.1.761287.3.579.2. 59 1976 Unknown [id number] 2.16.840.1.971214.3.579.2. 59 1976 Unknown [id number] 2.16.840.1.802843.3.579.2 59 1976 Unknown [id number] 2.16.840.1.222051.3.579.2. 59 1976 Unknown [id number] 2.16.840.1.015685.3.579.2. 59 1976 Unknown [id number] 2.16.840.1.189252.3.579.2. 59 1976 Unknown [id number] 2.16.840.1.877414.3.579.2. 593 1976 Unknown [id number] 2.16.840.1.027086.3.579.2. 59 1976 Unknown [id number] 2.16.840.1.123132.3.579.2. 593 1976 Unknown [id number] 2.16.840.1.838879.3.579.2. 593 1976 Unknown [id number] 2.16.840.1.799853.3.579.2 59 1976 Unknown [id number] 2.16.840.1.334150.3.579.2. 718 1976 Unknown [id number] 2.16.840.1.415903.3.579.2. 9 1976 Unknown [id number] 2.16.840.1.095985.3.579.2. 9 1976 Unknown [id number] 2.16.840.1.902323.3.579.2. 9 1976 Unknown [id number] 2.16.840.1.762524.3.579.2. 9 1976 Unknown [id number] 2.16.840.1.319440.3.579.2. 196 1976 Unknown [id number] 2.16.840.1.963800.3.579.2. 196 1959 Self-pay [id number] 1959 Unknown [id number] 2.16.840.1.389558.19 Unknown [id number] 2.16.840.1.613519.3.579.2. 531 Social History Date Type Detail Facility Unknown if ever smoked [facility] Other Start: 06-25-2023 End: 10-20-2023 Sex Assigned At [facility] Start: 11-01-2022 Tobacco smoking status Ex-smoker (fi nding) [facility] [place] Tobacco smoking status Former sm okeless tobacco user, quit more than 30 days ago [facility] [place] Start: 1975 Sex Assigned At Female F [facility] Start: 06-25-2023 [facility] History [...] 4 times a month; Caffeine: 1-2 cups/day [facility] Start: 1975 Sex assigned at Not on file N [facility] Functional Status Date Assessment Result Facility [...] No resulting surgeries. 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 Also notes poor balance with no [...] sign below. Date: documented in this encounter [facility] 03-15-2024 Note Education Materials Cardiovascular [...] Keep all follow-up visits. Medicines ? Take mmol-mfm-ddvtrtd and prescription medicines only as told by [...] harder to (more content not included)... [facility] 11-25-2022 Note Chief Complaint consultation for [...] - Denies A (more content not included)... [facility] Comment on above: Result Comment: Elec [...] was counseling done by myself, Ann ANGLIN. [facility] Other 09-28-2022 Evaluation note* Encounter Date Diagnosis Assessment Notes Treatment Notes Treatment Clinical Notes Aug, Abnormal weight gain (ICD-10 - R63.5) Aug, Prediabetes (ICD-10 - R73.03) Aug, Mixed hyperlipidemia (ICD-10 - E78.2) Aug, Hypertension (ICD-10 - I10) Aug, Obstructive sleep apnea (ICD-10 - G47.33) Aug, GERD (gastroesophageal reflux disease) (ICD-10 - K21.9) Aug, Metabolic syndrome X (ICD-10 - E88.81) [facility] Other 06-16-2022 NoteDISCHARGE SUMMARY DISCHARGE DATE: 05/18/2022 [...] pain free and no longer on narcotics. [facility] Signed and Approved by: DR DELGADO MURILLO . 05/20/2022 07:51:00[facility] [id number] NoteThe [place] NAME: HORACIO PUGH Tommie DATE OF : MEDICAL REC#: [id number] CARVER HAND: [address] LORE[address] LEE ADMIT DATE: 05/16/2022 11:05:00 DRUG ENFORCEMENT AGENT DATE: 05/17/2022 21:20 DICTATING PHYSICIAN: DELGADO MURILLO DICTATION DATE: 05/16/2022 15:02 OP Note OPERATION DATE: 05/16/2022 PROCEDURE: Supracervical hysterectomy with left salpingo-oophorectomy with right salpingectomy and right ovarian cystotomy of approximately 3 cm cyst. SURGEON: Delgado Murillo D.O. INFANT ROOM TEACHER: SHUKRI Bailon URINE OUTPUT: Yellow and [...] Approved by: DR DELGADO MURILLO . 05/23/2022 10:30[facility] No data available for this section [facility] [place] Evaluation noteNo InformationNort [facility] Other Evaluation noteNo assessment information available [facility] Work Phone: Evaluation note* Diagnosis [...] History TMJ surgery Hospitalization History see above [facility] Other Hisgsxj general Narrative - Reported* Type Description Date [...] ER-abd . [facility] 09/18[facility]22 [facility] Other Hospital Discharge instructions No data available [...] Therapy Diagnoses Other spondylosis, lumbar region Procedures CT PHYS THERAPY EVALUATION Edwige Magaña MD [address] [place] [address] Carol Webb, PT [address] [place] [address] Referral ID Status Reason Start Date Expiration Date V isits Requested Visits Authorized [id number] Authorized 09/02/2024 03/01/2025 40 40 Patient Care [...] End: August 30, 2024 Dedrick Fuller - [facility] DO [facility] Attending Provider Active Start: August 30, 2024 End: August 30, 2024 [employer] Relationship Specialty Start Date End Date Sami Marinelli MD [address] [place] [address] PCP - General Family Medicine 06/26/23 [employer] Relationship Specialty Start Date End Date Sami Marinelli MD [address] [place] [address] PCP - General Family Medicine 06/26/23 INFORMATION SOURCE (unrecogn ized section and content) DATE CREATED AUTHOR 11/26/2022 [facility] DATE CREATED AUTHOR AUTHOR'S ORGANIZ ATION 12/03/2022 [facility] pital DATE CREATED AUTHOR AUTHOR'S ORGANIZ ATION 03/21/2024 [facility] DATE CREATED AUTHOR AUTHOR'S ORGANIZ ATION 08/31/2024 [facility] DATE CREATED AUTHOR AUTHOR'S ORGANIZ ATION 09/28/2024 [facility] EPIC DATE CREATED AUTHOR AUTHOR'S ORGANIZ ATION 10/09/2024 [facility] Goals (unrecognized section and content) Goals may [...] BE BASED ON THE PRIMARY CLINICAL RECORDS. [facility] [email or web address] [facility]. provides no warranty or guarantee of the accuracy or completeness of information in this document.
[2024-10-13 08:43] LABS: Alanine Aminotransferase 41 U/L (14-59); Albumin Globulin Ratio 1.1; Albumin Level 3.9 g/dL (3.4-5.0); Alkaline Phosphatase 63 U/L (46-116); Anion Gap 16.9; Aspartate Amino Transferase 17 U/L (15-37); BUN Creatinine Ratio 13.7; Bilirubin Total 1.5 mg/dL (0.2-1.0); C Reactive Protein <0.50 mg/dL (<=0.50); Calcium 9.3 mg/dL (8.5-10.1); Carbon Dioxide 25.8 mmol/L (21.0-32.0); Chloride 101 mmol/L (98-107); Estimated GFR (African America >60 (>=60 mL/min/1.73m^2); Estimated GFR (Non-African Ame 58 (>=60 mL/min/1.73m^2); Globulin 3.4 g/dL; Glucose 89 mg/dL (74-106); Potassium 3.7 mmol/L (3.5-5.1); Sodium 140 mmol/L (136-145); Total Protein 7.3 g/dL (6.4-8.2); Uric Acid 6.4 mg/dL (2.6-6.0)
[2024-10-14 04:08] LABS: Testosterone <3 ng/dL (4-50)
[2024-10-14 05:08] LABS: HBsAg Screen Negative (Negative); HCV Ab Non Reactive (Non Reactive); Hep A Ab, IgM Negative (Negative); Hep B Core Ab, IgM Negative (Negative)
[2024-10-14 06:10] LABS: Antistreptolysin O Ab 52.6 IU/mL (0.0-200.0); Rheumatoid Factor (RF) <10.0 IU/mL (<14.0)
== END 2024-10-13 07:35 | disposition home or self-care (01) ==
LOC: LAB 07:37
PROVIDERS: PCP Family Medicine; Visit Provider Family Medicine
DX: R53.83 Other fatigue (principal); R74.8 Abnormal levels of other serum enzymes
CPT/HCPCS: 36415; 80053; 80074; 84403; 84550; 86038; 86060; 86140; 86431

== ENCOUNTER 2024-10-18 06:58 | Day surgery (SDC) | payer OTHER, SELFPAY ==
--- OUTSIDE RECORDS SUMMARY | 2024-10-18 07:00 | XMS_ITS | CCD ---
Author Organization [facility] Care Team Providers Care Pet Feeder Name Role Phone Nahid Mccoy Unavailable AldoClarice guzman Unavailable Sami Marinelli Primary Care Physician DR ABIGAIL SHEEHAN V Consulting Unavailable LUL, DR GALLARDO Primary Care [...] Rolle Consulting Unavailable MIRIANAMOLSIENNA Rodrigues Consulting Unavailable READERSAMI Consulting Unavailable LUL, DR GALLARDO Primary Care Unavailable ISMAEL MENJIVAR Attending Unavailable ISMAEL MENJIVAR Admitting Unavailable LIDIA, DR CHAVARRIA Consulting Unavailable LUL, DR GALLARDO Primary Care Unavailable LIDIA, DR CHAVARRIA Attending Unavailable LIDIA, DR CHAVARRIA Admitting Unavailable LIDIA, DR CHAVARRIA Consulting Unavailable DR SAMI MARINELLI Primary Care Unavailable LIDIA, DR CHAVARRIA Attending Unavailable LIDIA, DR CHAVARRIA Admitting Unavailable LUL, DR GALLARDO Consulting Unavailable LUL, DR GALLARDO Primary Care Unavailable LIDIA, DR CHAVARRIA Attending Unavailable LIDIA, DR CHAVARRIA Admitting Unavailable LIDIA, DR CHAVARRIA Consulting Unavailable DR SAMI MARINELLI Consulting Unavailable LUL, DR GALLARDO Primary Care [...] NON STAFF Primary Care Provider Unavailsalome Fuller [facility] Attending Provider [facility] Attending [facility]available [facility] Admitting Unavailable NON STAFF Primary Care Unavailable Sami Marinelli MD Primary Care Provider [phone] JESSICA SANCHEZ Attending Unavailable DELGADO MURILLO Attending Unavailable CAROL WEBB Attending Unavailable EWDIGE MAGAÑA F Referring Unavailable DELGADO MURILLO Attending Unavailable Marek BURK, Hebert Rock Attending Unavailable Marek BURK, Hebert Rock Attending Unavailable Sami Marinelli MD Primary Care Provider [phone] BECCA ASHLEY Attending Unavailable SAMI MARINELLI Referring Unavailable SAMI MARINELLI Primary Care Unavailable Vinayak Baltazar Attending Unavailable Allergies Allergy Classification Reported Allergen(s) Allergy Type Date of Onset Reaction(s) Facility (8 sources) NITROFURANTOIN, MACROCRYSTALS / Nitrofurantoin, Monohydrate; 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: [nitrofurantoin] Drug Allergy 05-01-20 18 Neck swelling (finding), Swelling [facility] (1 source) Albuterol Drug Allergy [facility] Comment on above: NEED TO CUT DOWN ADR ENALIN TO PREVENT SEIZURES (2 sources) Bee/Wasp/Ant venom; 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: [Bee Stings] Allergy to substance Nausea, Swelling [facility] (1 source) PECANS 1 Food allergy [facility] Comment on above: AIRWAY CONSTRICTION (2 sources) bee venom Drug allergy (disorder) 06-09-20 15 [facility] (2 sources) egg extract Drug Allergy 06-09-20 15 [facility] (4 sources) Nitrofurantoin; 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: [Macrobid] Drug Allergy 05-02-20 12 [facility] (2 sources) pecan pollen extract Drug Allergy [facility] (2 sources) tree nut, unspecified Drug allergy (disorder) 06-09-20 15 [facility] (5 sources) Albuterol; 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: [albuterol] Drug Allergy 06-26-20 23 [facility] (1 source) Nitrofurantoin Drug Allergy 10-01-[address] [facility] (3 sources) Honey bee venom Allergy to substance 04-05-20 24 [facility] (3 sources) Nitrofurantoin Drug Allergy 05-01-20 18 Swelling [facility] (3 sources) Nitrofurantoin Drug Allergy 04-05-20 24 [facility] (3 sources) Egg-Derived Products Drug Allergy 04-05-20 24 [facility] (5 sources) Other; 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: [OTHER] Propensity to adverse reactions 05-13-20 05 [facility] (1 source) NITROFURANTOIN MONOHYD/M-CRYST; 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: [NITROFURANTOIN MONOHYD/M-CRYST] Propensity to adverse reactions to drug (disorder) 05-01-20 18 [facility] (1 source) Egg; 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: [Eggs] Food allergy (disorder) [facility] (1 source) PECANS; 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: [PECANS] Food allergy (disorder) [facility] Medications Current Medications Medication Drug Class(es) Dates Sig (Normalized) Sig (Original) ALPRAZolam 0.25 mg oral tablet (11 sources) Benzodiazepine Start: 02-03-2023 take 1 tablet by mouth three times daily as needed ALPRAZolam (Xanax) 0.25 MG tablet Take 0.25 mg by mouth 3 (three) times a day as needed. 02/03/2023 Active Start: 11-17-2014 Xanax 0.25 mg Tab 0.25 mg = 1 tab(s), Oral, PRN as needed for anxiety, Refills(s) 0 Start Date: 11/17/14 Status: Ordered take 1 tablet by fernando th once daily as needed for anxiety ALPRAZolam (XANAX) 0.25 mg tablet Take 1 tablet (0.25 mg total) by mouth nightly as needed for anxiety. Active 24 hr amphetamine aspartate 7.5 mg / amphetamine sulfate 7.5 mg / dextroamphetamine saccharate 7.5 mg / dextroamphetamine sulfate 7.5 mg extended release oral capsule (1 source) Central Nervous System Stimulant take 1 capsule by mouth once daily in the morning amphetamine-dextroamphetamine XR (ADDERALL XR) 30 mg 24 hr capsule Take 1 capsule (30 mg total) by mouth every morning. Max Daily Amount: 30 mg Active aspirin 325 mg delayed release oral tablet (7 sources) Platelet Aggregation Inhibitor, Nonsteroidal Anti-inflammatory Drug take 1 tablet by mouth in the morning aspirin 325 mg EC tablet Take 1 tablet (325 mg total) by mouth in the morning. Active take 1 tablet by mouth once janett y Aspirin 81 81 MG 1 tablet Orally Once a day Active calcium polycarbophil 625 mg oral tablet (1 source) take 1 tablet by mouth in the morning polycarbophil (FIBERCON) 625 mg tablet Take 1 tablet (625 mg total) by mouth in the morning. Active celecoxib 100 mg oral capsule (1 source) Nonsteroidal Anti-inflammatory Drug take 1 capsule by mouth in the morning, then take 1 capsule by mouth at bedtime celecoxib (CeleBREX) 100 mg capsule Take 1 capsule (100 mg total) by mouth in the morning and 1 capsule (100 mg total) before bedtime. Active docusate sodium 50 mg oral capsule (1 source) take 1 capsule by mouth in the morning, then take 1 capsule by mouth at bedtime docusate sodium (COLACE) 50 mg capsule Take 1 capsule (50 mg total) by mouth in the morning and 1 capsule (50 mg total) before bedtime. Active doxepin hydrochloride 10 mg oral capsule (3 sources) Tricyclic Antidepressant Start: 06-09-20 take 1 capsule by mouth at bedtime doxepin (SINEquan) 10 MG capsule Take 10 mg by mouth at bedtime. 06/09/2023 Active estradiol 0.5 mg oral tablet (1 source) Estrogen take 1 tablet by mouth in the morning estradioL (ESTRACE) 0.5 mg tablet Take 1 tablet (0.5 mg total) by mouth in the morning. Active fluconazole 150 mg oral tablet (3 sources) Azole Antifungal Start: 04-05-20 take 1 tablet by mouth once daily fluconazole (Diflucan) 150 MG tablet Indications: Pelvic pain in female Take 1 tablet (150 mg) by mouth Daily Repeat in 7 days if symptoms persist. 2 tablet 04/05/2024 Active lactobacillus acidophilus [id number] unt / pectin 100 mg oral tablet (1 source) acidophilus-pect in, citrus 25 million cell -100 mg tablet Take 1 tablet by mouth in the morning and 1 tablet at noon and 1 tablet in the evening. Take with meals. Active lamoTRIgine 25 mg oral tablet (1 source) Mood Stabilizer, Anti-epileptic Agent take 1 tablet by mouth in the morning lamoTRIgine (LaMICtal) 25 mg tablet Take 1 tablet (25 mg total) by mouth in the morning. Active lisinopril 20 mg oral tablet (8 sources) Angiotensin Converting Enzyme Inhibitor Start: 10-30-20 take 1 tablet by mouth once daily lisinopril 20 mg Tab 20 mg = 1 tab(s), Oral, Daily, Refills(s) 0 Start Date: 10/30/22 Status: Ordered meloxicam 15 mg oral tablet (11 sources) Nonsteroidal Anti-inflammatory Drug Start: 06-14-20 take 1 tablet by mouth in the morning meloxicam (Mobic) 15 MG tablet Take 15 mg by mouth in the morning. 06/14/2023 Active Start: 10-30-2022 take 1 tablet by fernando once daily meloxicam 15 mg Tab 15 mg = 1 tab(s), Oral, Daily, Refills(s) 0 Start Date: 10/30/22 Status: Ordered take 1 tablet by fernando th in the morning meloxicam (MOBIC) 7.5 mg tablet Take 1 tablet (7.5 mg total) by mouth in the morning. Active metoprolol tartrate 50 mg oral tablet (4 sources) beta-Adrenergic Jeffrey Start: 05-17-2023 take 1 tablet by mouth in the morning metoprolol tartrate (Lopressor) 50 MG tablet Take 50 mg by mouth in the morning and 50 mg before bedtime. 05/17/2023 Active metoprolol tartr ate (LOPRESSOR) 100 mg tablet Take 75 mg by mouth in the morning and 75 mg before bedtime. Active Multivitamin preparation (6 sources) take 1 tablet by mouth once daily Multivitamin - 1 tablet Orally Once a day Active omeprazole 40 mg delayed release oral capsule (11 sources) Proton Pump Inhibitor Start: take 1 capsule by mouth twice daily omeprazole 40 mg Cap-DR 40 mg = 1 cap(s), Oral, BID, Refills(s) 0 Start Date: 10/30/22 Status: Ordered take 1 capsule by [facility] every twenty-four hours Omeprazole 40 MG 1 cap(s) p.o. Once a da y Active peg 3350-sod sulf,ktas-dxm-kgk 178.7-7.3-0.5 gram recon soln (1 source) Start: 10-13-2024 End: 10-14-2024 peg 3350-sod sulf,llpy-eni-tsx 178.7-7.3-0.5 gram recon soln Indications: Positive fecal occult blood test Take 1 kit by mouth once daily for 1 dose. Please see instructional sheet given by physicians office. 1 each 10/13/2024 10/14/2024 Active phentermine hydrochloride 37.5 mg oral tablet [...] 1.5 ml semaglutide 1.34 mg/ml pen injector (6 sources) Start: 08-28-2022 Ozempic (0.25 or 0.5 MG/DOSE) 2 MG/1.5ML 0.25 mg for one month and then increase to 0.5 mg dose Subcutaneous weekly for 30 days Aug, Active semaglutide (OZE MPIC) 0.25 mg or 0.5 mg(2 mg/1.5 mL) pen injector Inject 0.6 mg under the skin every 7 days. Active tiZANidine 4 mg oral tablet (4 sources) Central alpha-2 Adrenergic Agonist Start: 06-13-2023 tiZANidine (Zanaflex ) 4 MG tablet Take 8 mg by mouth at bedtime. 06/13/2023 Active take 1 tablet by fernando th every six hours as needed tiZANidine (ZANAFLEX) 4 mg tablet Take 1 tablet (4 mg total) by mouth every 6 (six) hours as needed for muscle spasms. Active Completed/Discontinued Medications Medication Drug Class(es) Dates Sig (Normalized) Sig (Original) 0.5 ML semaglutide 0.5 MG/ML Auto-Injector [Wegovy] (5 sources) Start: 09-20-2022 Wegovy 0.25 MG/0.5ML 1 injector Subcutaneous Weekly for 28 days Aug, Not-Taking Start: 09-20-2022 Wegovy 0.25 MG /0.5ML 1 injector Subcutaneous Weekly for 28 days Aug, Active sod sulf-pot chloride-mag delgado lf 1.479-0.188- 0.225 gram tablet (1 source) Start: 10-13-2024 End: 10-13-2024 sod sulf-pot chloride-mag delgado lf 1.479-0.188- 0.225 gram tablet Indications: Positive fecal occult blood test Please see instructional sheet given by physicians office. 24 tablet 10/13/2024 10/13/2024 Discontinued (Alternate therapy) Problems Active Problems Problem Classification Problem Date [...] hyperlipidemia; 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: [Mixed hyperlipidemia] Chronic Esophageal disorders (12 sources) Gastroesophageal reflux disease; 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: [Gastro-esophageal reflux disease without esophagitis] Onset: 2 Chronic Essential hypertension (9 sources) Hypertensive disorder; 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: [Essential (primary) hypertension] Chronic Gastroduodenal ulcer (except hemorrhage) (1 source) H/O: gastric ulcer 10-30-2022 Episodic Gastrointestinal hemorrhage (2 sources) Rectal hemorrhage; 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: [Hemorrhage of anus and rectum] Onset: 4 10-13-2024 Episodic Menstrual disorders (3 sources) Dysmenorrhea, unspecified; 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: [DYSMENORRHEA UNSPECIFIED] Onset: 2 Chronic Osteoarthritis (2 sources) Primary osteoarthritis, left hand; 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: [Primary osteoarthritis, right hand] Onset: 2 Chronic Other aftercare (1 source) Other intermission coordinator (current) drug therapy; 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: [OTH HALF-WAY CURRENT DRUG THERAPY] Onset: 2 Episodic Other [...] SYND W/O DIARRHEA] Onset: 2 Chronic Other gastrointestinal disorders (1 source) Occult blood in stools; 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: [Other fecal abnormalities] 10-13-2024 Episodic Other gastrointestinal disorders (1 source) Other fecal abnormalities; 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: [Other fecal abnormalities] Onset: 4 Episodic Other nutritional; endocrine; and metabolic disorders (7 [...] EXPOS COVID-19] Onset: 2 Unclassified (1 source) POSITIVE OCCULT TEST Onset: 4 Past or Other Problems Problem Classification Problem [...] MDRD (S/P/Bld) [Vol rate/Area] mL/min/{1.73_m2} Normal [facility] Comment on above: Performed By: #### L IPID, BMP #### [facility] [address] [id number] [place] Calcium [Mass/volume] in Ser um or PlasmaOrdered By: Dedrick Fuller on 08-30-2024 Calcium [Mass/Vol] 9.9 mg/dL Normal 8.6-10.3 [facility] Comment on above: Performed By: #### L IPID, BMP #### [facility] [address] [id number] [place] Carbon dioxide, total [Moles /volume] in Serum or PlasmaOrdered By: Dedrick Fuller on 08-30-2024 CO2 [Moles/Vol] 26.6 mmol/L Normal 21.0-31.0 [facility] Comment on above: Performed By: #### L IPID, BMP #### [facility] [address] [place] [address] [place] Chloride [Moles/volume] in S altagracia or PlasmaOrdered By: Dedrick uFller on 08-30-2024 Chloride [Moles/Vol] 104 mmol/L Normal 98-107 [facility] Comment on above: Performed By: #### L IPID, BMP #### [facility] [address] [place] [address] [place] Cholesterol [Mass/volume] in Serum or PlasmaOrdered By: Dedrick Fuller on 08-30-2024 Cholesterol [Mass/Vol] 218 mg/dL High 140-200 [facility] Comment on above: Chol less than 200 m g/dl low riskChol 201-239 mg/dl borderline riskChol 240 mg/dl and greater high risk Result Comment: Chol less than 200 mg/dl low risk Chol 201-239 mg/dl borderline risk Chol 240 mg/dl and greater high risk Performed By: #### L IPID, BMP #### [facility] [address] [place] [address] [place] Cholesterol in LDL Calc [Mas s/Vol]Ordered By: Dedrick Fuller on 08-30-2024 Cholesterol in LDL [Mass/Vol] 134 mg/dL High 0-100 [facility] Comment on above: LDL ATP III CLASSIFI CATIONLDL less than 100 mg/dL OptimalLDL 100-129 mg/dL Near or above optimalLDL 130-159 mg/dL Borderline highLDL 160-189 mg/dL HighLDL greater than 189 mg/dL Very high Cholesterol in VLDL Calc [Ma ss/Vol]Ordered By: Dedrick Fuller on 08-30-2024 Cholesterol in VLDL [Mass/Vol] 46 mg/dL [facility] Creatinine [Mass/volume] in Serum or PlasmaOrdered By: Dedrick Fuller on 08-30-2024 Creatinine [Mass/Vol] 0.75 mg/dL Normal 0.60-1.20 [facility] Comment on above: Performed By: #### L IPID, BMP #### [facility] [address] Glucose [Mass/volume] in Ser um or PlasmaOrdered By: Dedrick Fuller on 08-30-2024 Glucose [Mass/Vol] 95 mg/dL Normal 70-100 [facility] Comment on above: ADA recommended refe rence rangeRandom Glucose Reference Range is dependent on time and content of last meal. Glucose of more than 200 mg/dL in a nonstressed, ambulatory subject supports the diagnosis of Diabetes Mellitus. Result Comment: [place] om Glucose Reference Range is dependent on time and content of last meal. Glucose of more than 200 mg/dL in a nonstressed, ambulatory subject supports the diagnosis of Diabetes Mellitus. ADA recommended reference range Performed By: #### L IPID, BMP #### [facility] [address] Lipid Panelon 08-30-2024 LDL Cholesterol,Calculated 134 mg/dL High 0-100 [facility] Comment on above: Result Comment: LDL ATP III CLASSIFICATION LDL less than 100 mg/dL Optimal LDL 100-129 mg/dL Near or above optimal LDL 130-159 mg/dL Borderline high LDL 160-189 mg/dL High LDL greater than 189 mg/dL Very high Performed By: #### L IPID, BMP #### [address] Triglyceride w/Reflex 231 mg/dL High 0-149 [facility] Comment on above: Result Comment: TRIG ATP III CLASSIFICATION TRIG less than 150 mg/dL Normal TRIG 150-199 mg/dL Borderline high TRIG 200-500 mg/dL High TRIG greater than 500 mg/dL Very high Standard traceable to the Center for Disease Conrtrol and Prevention (CDC) test method. Performed By: #### L IPID, BMP #### [address] VLDL CHOLESTEROL 46 mg/dL Normal [facility] Comment on above: Performed By: #### L IPID, BMP #### [address] No Panel InformationOrdered By: Dedrick Fuller on 08-30-2024 Estimated GFR (CKD-EPI) > 60.0 mL/Min [facility] Creatinine Clearance (Chem N/A [facility] Potassium [Moles/volume] in Serum or PlasmaOrdered By: Dedrick Fuller on 08-30-2024 Potassium [Moles/Vol] 4.1 mmol/L Normal 3.5-5.1 [facility] Comment on above: Performed By: #### L IPID, BMP #### [address] Serum or plasma anion gap de terminationOrdered By: Dedrick Fuller on 08-30-2024 Anion gap [Moles/Vol] 13.5 mmol/L Normal 6.0-15.0 [facility] Comment on above: Performed By: #### L IPID, BMP #### [address] Serum or plasma high density lipoprotein (HDL) cholesterol measurementOrdered By: Dedrick Fuller on 08-30-2024 Cholesterol in HDL [Mass/Vol] 38 mg/dL Normal 23-92 [facility] Comment on above: HDL CHOL ATP-III CLA SSIFICATION Cardiovascular RiskHDL > or equal to 60 mg/dL LOWHDL < 40 mg/dL HIGH Result Comment: HDL CHOL ATP-III CLASSIFICATION Cardiovascular Risk HDL > or equal to 60 mg/dL LOW HDL < 40 mg/dL HIGH Performed By: #### L IPID, BMP #### [facility] [address] [place] [address] Serum or plasma total choles terol/high density lipoprotein (HDL) cholesterol mass ratOrdered By: Dedrick Fuller on 08-30-2024 Cholesterol.total/Mirta sterol in HDL [Mass ratio] 5.7 {ratio} Normal <5.0 [facility] Comment on above: Result Comment: PERF ORMED BY: [place] [address] PATHOLOGIST TRACTOR TRAILER DRIVER IRMA MARCELO M.D. Performed By: #### L IPID, BMP #### [address] [address] [place] Sodium [Moles/volume] in Ser um or PlasmaOrdered By: Dedrick Fuller on 08-30-2024 Sodium [Moles/Vol] 140 mmol/L Normal 136-145 [facility] Comment on above: Performed By: #### L IPID, BMP #### [facility] [address] [id number] [facility] Triglyceride [Mass/volume] i n Serum or PlasmaOrdered By: Dedrick Fuller on 08-30-2024 Triglyceride [Mass/Vol] 231 mg/dL High 0-149 [facility] Comment on above: TRIG ATP III CLASSIF ICATIONTRIG less than 150 mg/dL NormalTRIG 150-199 mg/dL Borderline highTRIG 200-500 mg/dL High TRIG greater than 500 mg/dL Very highStandard traceable to the Center for Disease Conrtrol and Prevention (CDC) test method. Urea nitrogen [Mass/volume] in Serum or PlasmaOrdered By: Dedrick Fuller on 08-30-2024 Urea nitrogen [Mass/Vol] 18 mg/dL Normal 7-25 [facility] Comment on above: Performed By: #### L IPID, BMP #### [facility] [address] Coding Summaryon 03-19-2024 Coding Summary HTMLBase 64 LgrujbzcVQv4cJq+PGhlY WQ+PW3GWSLyE75bwEFuwN 6aJ7CELVxYAmdaPWEIGDj WQfFqswWkUA7dcIGjCBUx IC8+SG3aTKFbVwmnjPHrv 5T9tPV8L71ldw8bQIjkiC D6XKHrJrKyrcfdp6xobIi 6IDcuNmluOyBt QWVzvK88PNL8nN69Xn95t TUmyCBow7rgaKr8VoKaXM WrXBO4aUrzZQvup3QvMLE uM15laJQrx6L8 ZKZoxVltsKZjPoAgqDK3x Y6xVZtcxdltq4pcivjwJy v6da15kROtp5Y3kVG6U5X oosX4SGMazMEj IcktbEGDxU9hazzkc3pmy fvtZtHuVXSqJBy6HRx2IC XtrLkaGoViQU85QAO6CZB kenTnJ3XcOAWr rIjrKqP6c3G7Wy9EI7AME dvlE8QKJEJRZYzpmGI+PC 09eb20O8ZnJpziRwz4OKU lFAG7lXF8uR5b EFPjWAxcu2H9eDW1W4Rkk fSyjw0sr9tkSOVfDLxkB9 6rjJZvo0E1ESHycJE6KNC lgDadCjHooI31 Oyc+YWKxlDfqi2GvFazng 6cva3zcaWz3NvnzFZIttd PjlPuuCDW2b0XhVm5iTOS hqPB2wUH7mH6u BoCaXsP9VHdzK059QeHad BGgTpjuF72tV7PdpRZ+PH SwZsj5XIUgoHyuVX9lL6I hZGRpbmctbGVm fDviOQ0cTKIfkixyENWti G3mGQWpA3f3ZaAdOnF5VA xbX2AkSPDhlkmkTb00sA4 iMtUmVnO7GHqx P4YeolW9KYHzbGOjNZrnK LV0X96ey3G3HIPhNNVxDB Y8pBS7uJ0exIitosrnpPQ mdDsgdmVydGlj HSxvEKtjB596AVPmhSdvQ kNvZGluZyBEYXRlOiAgMD QvMTkvMjAyNDwvdGQ+PHR bGXO2iDqyZWUq yZNfLRqpHl8hwAbhfBlxN W7eICFjtqbfTHCbfC5yNP PudRWpxJzeKX2bOUMajeh yb222NvYsHLX8 SWOlpUNhF0QdjX3jWkNzT JUfDIYhO6MseQRvKDubM5 34RMslQmE2BQSomoRzS9C sLWFsaWduOiB0 n4G8Zn8Ig9DhzdcjJ9Cjj FGtFtQkCiirVEn2R3RfCx wvdHI+OM23IOLwHQ18DHs 7MAV2yBcqIShg BGHjC4LpuM7vIoUaBJHjG GRkOyc+PHRhYmxlIHdpZH RoPScxMDAlJyBzdHlsZT0 zQc2aKJGhAQPk hWfosCVtEvMza4dmJAKpK EyoTT3rwZgtZ8ZbhYC2DT Suy9d4Sh81Y14eE4HiqGR +ILBbjFP5eJO4 iE4jNcYiPiC7YNrdT303Y qHnhXGwCbyjl8rjj6ipnA w5SsC9NDMfgvXyrUyqGJE 6g4JdEt71Y84z IHdpZHRoPSIxNSUiIHZhb Cxcgk1jrF9mBl9+PGNvbC I2wML7pZ2fJaKpYmW7CPy gW622ZeFlaXOh Dviva7oej3uzkAc4SkVqI HQuduNgrUgjVJO0x8UcJy 86Q1GtrApod9KuFew6hy0 9yDHyy7E4yRA4 B5RbJFUhjqveqSRrpDueV C3iATLdhfrbQAFskC9lKI OiZ7o2JiOjJrE1DXgnP2H dfjU4BKTdcEGi SVCadHWWxG7kyrwfz5wde gnmQgUlPZPyZPi9LBo0OW KeaVpvTxPrFYZ5YvO6XRN 6tMAvhH6ibIzj diruhX8dPqr+LEU5fUIjh DTPJF9tTfnmcDU+PHRkIH S2rEfgRXhoIULgpQ7xQKQ cV6d8HbIgSgQ2 LBkjD1KvcxQ4TOVbxLLwC YXwcEVMbJ8bxkvfv5yyrc sjXiPfVVIgJEr3ZNy6GHG saWduOiBsZWZ0 SlZ1YDB6mMJwxQ1yvMrov hqgcY8tGgd+QmlydGggRG S6SLy3Y2OqTbx2VFIjcSj nWH9pcEIhXLaq Vx7dmDltpBteFU5bRQBvd aqbx006AzXnc0yyNABptT OxGVadPUO6H17id0R5APL nSGVvANS2wKU3 cI2oeWvvfcygzVMwrLlrz xQcbOceHYwzLLfkW895ME YfqJocVqRtZRr4I1FdTwc 4BRLapZldXY3y pOHfUOqxXa9maTzctBzwV N4sIVIfjwkqw788JkDie5 mrDDMttWYjAYjiIYE6R33 oh0A8UREuTDAm SNA0uJO6sC6xuEkbujvhi GVmdDsgdmVydGljYWwtYW gaW386FNXuhAolGfAvuIt 6P5BlLdi6ANHi gBudGO3toMDoJBxsUc9vh EpujJbpAA3cHKFporpxt0 71LiOqb6jzVKMujBFqERi gFGB2X10go0A2 XZQbMPIsPGZ7uRE0fZ6od GlnbjogbGVmdDsgdmVydG xjUOoqDWisY849KZMgaWm nPlBhdGllbnQg OSuxGRt7O1DbYsdyrMV+P B41MTTlIZ62lJEzyCWpv4 eqgMd4YwPbMFGcLXZ2vEp lFXpbm8ZpOITz Z85tkMLlq8S1UETinDdbo JWuTjWcvYJ1yM7kYQwqdr afj0xvtdbbLysei6qzmo1 5uW07D28pZNnf ZHRoPSIzMCUiIHZhbGlnb r6qhY2hOw2+BVSvpMA1zZ C0zF0kOGKtZcK8IZqsX04 9InRvcCIvPjxj u4gob9ficOb9IoH1HSQmn jNkzKanRCA6c6YyIr41Q8 9sIHdpZHRoPSIyMCUiIHZ rcElwul9jpW4w Ii8+EWHsfRL8hHW9vV9eG uXfPxM6URnqC897PsDnvY YoHttdP95nB9HnmXS+PHR gHfg2BAXtqPvb IC6rlNVwVJprFr4oEES4D hSuMlDnXZlfA0LqTARucp faxboyqPH5EIJyEMLpdK4 8Jl5hyYohYSPy yPVZkB2ghkebu3drblhzU nFkSLTkAAy0USu6NCVrlY msOzVzWLG4FhL6QFS9qNM usK5amVsbocco qO8nG7YgMCWoqkptTo28p J1dIeZxGqT3NJfuMgf+Q0 4TLOYLEHBYGOHFZF7GSX4 UQ08MFRtwtOZ+ TQJeAYN3rBrzSHzgLJVhs E5wOHZwB8c8YuCjQiP1MH bjN9QeEREqryznNy00fZ3 uErJlEqM3GAni C0BbpgG4QAJqeWIxCTsgZ JS1K23uf8B4IPMcXRRaUR T1rNX3oF9erVhvjlkhvRY mdDsgdmVydGlj EGweGAhkH828CMIwvFktA kD7RwT6JdA5WxJ8F3HyUj x8EFRgwXtxNU5aqEFvXVw wDm1whLmyrSnc PD9kNOPjcejdADWfuO6fY SRmnLPrcKcyOU6pBXLwam gvp592GnDpIYQ5PEIlmNA pZ7JqpA1cTiEe JKNgLRHuL3HcgDZpNTvkB 801GWmoOeN1WLHgzbPeP3 RmEGMbaIloRoX1i6A7Ro9 0NyBZZWFyczwv dGQ+QQUiBXF5pPfqQHvkT BUkjH6tGXNoJ7d6HfWwLv R7ZQdgR9RvUBZdfhsiNj5 2rM4pLcCcQkC8 PIkmU6MwruL8XXLqeKEcV QymBRA3H04to2A6RNHkKO EgKWC4uVL2xL5tyQjhbbw gbGVmdDsgdmVy qUsqEIycNBdoU250UUQab DsnPkZFTUFMRTwvdGQ+PH DcQYI1bYesVHhnVSNjiP0 sSYEyN4e3QmMn HsO5VIytA1IqDOApdnplO q89vA5qVvErIeQ8AWspZ6 AckaY9SBUyhPOqHKtoXDL 0W56ox3I4BPCz MXWvGIM7fUE4iD8ezCyxp jogbGVmdDsgdmVydGljYW msAQjiB153ITNxhPkwKzT bZYVmJH4akYva dGQ+CQ34oe54V5NyJbhxJ mb5MCZyMWK5vJL7mH5pSN FrWJbxq5R3yNX1C5WtyvP aoi4iv5lmIPXd KVwjS69pmXWvf7I8BGGde FM7LPQnvAfgNkRidH91Xk c+GWHbcIivg7VaUzvoe1p ao9ikmZf8UnPt ATAabjBvpHwcDWW3e1RxP l54E31bKTyiQPWeDTClYF AaBXEbqEuzcu6hcC1xXa5 +VKTbsSG8kJS0 lK3rGdTqTvA5BJjyP028I uLhpMGgKywza7kme6ptfW a8PjZfTSAatbIrrCevJCH 8i6LiMb26P1Qg wObpr0MqXti1gq84rATui 7O0uHI0M7ZzDPJyihmuaK WsyBvjDY7iTYNqanpfTKZ grI0fSZYqZ3d2 RhDiSgF4ULsnO1PshfW8I KIaeIYbJDIsoDTSoJ5xue zfi5owjiolYuUhMFAbAVm 4MKm1QYJqdWrq OzFiULP7UkW1VZR1zCBuk U5csSoghkylvA0cUof+UG h9d7ymrIZrFQ1ijYO9XS3 3OE61kESto1A0 iCI2W6EjKZCpykslkdnyp AD4JNNjFQOwcB97Ub1zkQ gmFa4yLLTcOGI6HYHcpFT kQ6KmhA0iWdKg YTUvVNWrC1OakDRxQJpeF 171GBhvQaF4QIEmesHeO2 UuCZPeeMkyNfA3x2I3Qz6 XSS62PA08TU98 dDUrl6F6wXR7I8QaDTQch tnfwodtpXC9HUWfTGIiaD 89Yf3gsTujYi8kUNKtKJN 0IEOwwAEoM5Mj zE0rBrYnQFKnZJYpA3Pud YMxQJvbD023NEipQbI2EI YuzuJcE5RpCOFmmXzgPbB 3j0V1Xk1PXl50 NR98FQ57wTNlj1D4xZR9Z 3IaQPMaoopcxwcufXJ4QZ SnBXQhkU76Yo1usFryPc9 qTCMoVQD9AUXo zWPfI8SqjA5dOhFrEBWjH ZDzN1NnhTWoGFseN330CR rvFrG1CZUooxGuR2SbNCI ydMquRjV0z6V0 Ev5DMHsimly4L7CcSlivs HI+CC43MTLnZO91jJQuhB Knr5wbsQe3GxFiEOZaLDR 0fTemNXvfg5Qg ZXI (more content not included)... [facility] Ambulance Noteon 03-17-2024 Ambulance Note [id number]#1.00 OTGTIFF [facility] C Urineon 03-17-2024 C Urine Urine Culture ordere d as a result of parameters set on specific urine dip and urine microsopic results. >100,000 cfu/ml Lactobacillus species Normal vaginal oleg isolated 10,000 cfu/ml Corynebacterium species (DIPTHEROID) No YOLANDE performed on this organism No pathogens isolated Normal [facility] Comment on above: Performed By: #### 5 [id number], [id number], 1427711 ####[facility] (DEFAULT)[address] [place] [address] .Auto Diff 1on 03-15-2024 Auto [place] % 3 % Normal 1-12 [facility] Comment on above: Performed By: #### 5 [id number], 1486494238, 2155356938, 63162157, 7320198535, 7809014, 7690084 #### [facility] (DEFAULT) [address] [place] [address] Baso Abs# 0.1 x10 Normal 0.0-0.2 [facility] Comment on above: Performed By: #### 5 [id number], 5684908943, 9831831848, 01237966, 2032551326, 3191334, 8576765 #### [facility] (DEFAULT) [address] [place] [address] 23294 Basophils/100 WBC (Bld) 0.7 % Normal 0.2-2.0 [facility] Comment on above: Performed By: #### 5 215341860, 0883825419, 7458718652, 49197814, 9901744493, 1405294, 0527137 #### [facility] (DEFAULT) [address] [place] [address] 61787 Eos Abs# 0.1 x10 Normal 0.0-0.4 [facility] Comment on above: Performed By: #### 5 423445256, 9039327959, 6359825270, 95874104, 5329323226, 5908885, 6918739 #### [facility] (DEFAULT) [address] [place] [address] 30194 Eosinophils/100 WBC (Bld) 0.7 % Low 0.9-4.0 [facility] Comment on above: Performed By: #### 5 827644666, 9451823283, 4579122720, 49775374, 0783013022, 5012953, 1543600 #### [facility] (DEFAULT) [address] [place] [address] 84699 Lymph Abs# 2.2 x10 Normal 1.3-2.9 [facility] Comment on above: Performed By: #### 5 836618498, 9152093869, 1267077466, 30075067, 6590536441, 2654139, 9498662 #### [facility] (DEFAULT) [address] [place] [address] Lymphocytes/100 WBC (Bld) 14 % Normal 14-48 [facility] Comment on above: Performed By: #### 5 786675587, 5997090203, 9764659630, 30767248, 2466684297, 4843446, 4614264 #### [facility] (DEFAULT) [address] [place] [address] [place] Abs# 0.5 x10 Normal 0.0-0.8 [facility] Comment on above: Performed By: #### 5 269603551, 5888736395, 5660687598, 37532917, 7724709674, 0930731, 0834403 #### [facility] (DEFAULT) [address] [place] [address] 19870 Neut Abs# 13.5 x10 High 1.5-9.2 [facility] Comment on above: Result Comment: Slid e Reviewed Performed By: #### 5 039247950, 9674935880, 3337648885, 64777811, 3162668630, 6182694, 5840995 #### [facility] (DEFAULT) [address] [place] [address] 83733 Neutrophils/100 WBC (Bld) 82 % Normal 44-88 [facility] Comment on above: Performed By: #### 5 676693631, 3273061243, 0079653229, 56516756, 8519515949, 0152961, 3143922 #### [facility] (DEFAULT) [address] [place] [address] 22505 CBC w/ Auto Diffon 4 Erythrocyte distribution width (RBC) [Ratio] 13.3 % Normal 11.5-15.0 [facility] Comment on above: Performed By: #### 5 244778308, 3715805381, 4259819675, 94879056, 0288048789, 0382820, 4819834 #### [facility] (DEFAULT) [address] [place] [address] Hematocrit (Bld) [Volume fraction] 45.0 % High 33.7-40.4 [facility] Comment on above: Performed By: #### 5 368275417, 7131784927, 2823971418, 21115013, 9434853358, 4715701, 8558192 #### [facility] (DEFAULT) [address] [place] [address] Hemoglobin (Bld) [Mass/Vol] 15.0 g/dL Normal 11.3-15.9 [facility] Comment on above: Performed By: #### 5 799431592, 0556620402, 3516976975, 71387017, 6323026478, 9527766, 6419166 #### [facility] (DEFAULT) [address] [place] [address] Man Diff? Auto Invalid Interpretation Code [facility] Comment on above: Performed By: #### 5 402419770, 5306876012, 4934101223, 80701761, 7237011480, 9529787, 4263717 #### [facility] (DEFAULT) [address] [place] [address] MCH (RBC) [Entitic mass] 32 pg Normal 24-34 [facility] Comment on above: Performed By: #### 5 592419178, 3057652269, 7836534523, 09456696, 6612147401, 0906901, 8614969 #### [facility] (DEFAULT) [address] [place] [address] MCHC (RBC) [Mass/Vol] 33 g/dL Normal 26-37 [facility] Comment on above: Performed By: #### 5 006932228, 4318700147, 6167874700, 81762404, 4046681370, 1172858, 3703266 #### [facility] (DEFAULT) [address] [place] [address] MCV (RBC) [Entitic vol] 95 fL Normal 81-100 [facility] Comment on above: Performed By: #### 5 137512658, 3580532492, 7903470037, 33054154, 0401209504, 8119954, 0177071 #### [facility] (DEFAULT) [address] [place] [address] 62036 Platelet 292 x10 Normal 138-427 [facility] Comment on above: Performed By: #### 5 909654130, 8000511905, 4276999571, 72842367, 1069650427, 5895757, 4636343 #### [facility] (DEFAULT) [address] [place] [address] 88639 Platelet mean volume (Bld) [Entitic vol] 8.7 fL Normal 6.3-10.2 [facility] Comment on above: Performed By: #### 5 368232125, 7706358867, 7162408182, 47411198, 7246934485, 3899579, 5206840 #### [facility] (DEFAULT) [address] [place] [address] 04368 RBC 4.74 x10 Normal 3.70-5.30 [facility] Comment on above: Performed By: #### 5 315711077, 9959687030, 4894613349, 34921818, 5557470439, 5110543, 2359910 #### [facility] (DEFAULT) [address] [place] [address] 09831 WBC 16.4 x10 High 3.5-10.5 [facility] Comment on above: Performed By: #### 5 847296440, 3864392133, 2624353122, 97086935, 7309820632, 9029538, 2573558 #### [facility] (DEFAULT) [address] [place] [address] 54857 CMP Standardon 03-15-2024 eGFR Non AA >60 Invalid Interpretation Code [facility] Comment on above: Performed By: #### 5 257286715, 0481317340, 3069333296, 32995928, 2484359439, 5154502, 9042813 #### [facility] (DEFAULT) [address] [place] [address] 90558 eGFR AA >60 Invalid Interpretation Code [facility] Comment on above: Performed By: #### 5 473683120, 7593739615, 9705676281, 18486695, 6111264818, 3048428, 4872529 #### [facility] (DEFAULT) [address] [place] [address] 58071 Albumin [Mass/Vol] 4.1 g/dL Normal 3.5-5.0 [facility] Comment on above: Performed By: #### 5 941646925, 8941468544, 7750741252, 94139961, 1150260999, 2583034, 2201592 #### [facility] (DEFAULT) [address] [place] [address] 80872 Albumin/Globulin [Mass ratio] 1.3 {ratio} Low 1.4-2.6 [facility] Comment on above: Performed By: #### 5 437127301, 8530148510, 4348254179, 10966548, 2631195620, 3327799, 7962661 #### [facility] (DEFAULT) [address] [place] [address] 40026 Alk Phos 39 IU/L Normal 32-91 [facility] Comment on above: Performed By: #### 5 669659476, 5887682367, 4344960931, 10650521, 5446116800, 9079973, 1851248 #### [facility] (DEFAULT) [address] [place] [address] 68317 ALT [Catalytic activity/Vol] 32.0 U/L Normal 14.0-54.0 [facility] Comment on above: Performed By: #### 5 478471281, 9189719728, 0164743244, 79236965, 9003614862, 1017759, 9201725 #### [facility] (DEFAULT) [address] [place] [address] 37735 Anion gap [Moles/Vol] 13.0 mmol/L Normal 5.0-19.0 [facility] Comment on above: Performed By: #### 5 405930637, 9130025595, 7455707225, 24205759, 2316745208, 6322633, 9207808 #### [facility] (DEFAULT) [address] [place] [address] 31924 AST [Catalytic activity/Vol] 25 U/L Normal 15-41 [facility] Comment on above: Performed By: #### 5 930631256, 3850900428, 5423136147, 11083722, 8146422898, 1181610, 8366444 #### [facility] (DEFAULT) [address] [place] [address] 70378 Bili Total 1.4 mg/dL High 0.3-1.2 [facility] Comment on above: Performed By: #### 5 986474142, 0941865090, 4908232552, 95334130, 9519780587, 4517444, 6968747 #### [facility] (DEFAULT) [address] [place] [address] 01919 Calcium [Mass/Vol] 8.8 mg/dL Low 8.9-10.3 [facility] Comment on above: Performed By: #### 5 132348435, 9783670485, 0718621971, 03309421, 6726383436, 1983907, 9348608 #### [facility] (DEFAULT) [address] [place] [address] 95750 Chloride [Moles/Vol] 105 mmol/L Normal 101-111 [facility] Comment on above: Performed By: #### 5 894187863, 1853159052, 1105894044, 43955286, 6333294138, 9788539, 7477684 #### [facility] (DEFAULT) [address] [place] [address] 77808 CO2 [Moles/Vol] 24 mmol/L Normal 21-32 [facility] Comment on above: Performed By: #### 5 442223714, 2794160003, 2556909536, 55467205, 9446811876, 1992078, 3416431 #### [facility] (DEFAULT) [address] [place] [address] 10362 Creatinine [Mass/Vol] 0.72 mg/dL Normal 0.60-1.30 [facility] Comment on above: Performed By: #### 5 917227105, 0376128928, 8625638211, 32528464, 9404307364, 3588852, 0321208 #### [facility] (DEFAULT) [address] [place] [address] 31581 Globulin (S) [Mass/Vol] 3.0 g/dL Normal 1.5-4.3 [facility] Comment on above: Performed By: #### 5 356740003, 4977289797, 0297932698, 80269189, 6535533591, 0690872, 2435556 #### [facility] (DEFAULT) [address] [place] [address] 57939 Glucose [Mass/Vol] 124.0 mg/dL High 74.0-118.0 [facility] Comment on above: Performed By: #### 5 885107676, 5548827589, 2072992314, 23021887, 6966709879, 2712563, 9062087 #### [facility] (DEFAULT) [address] [place] [address] 65627 Osmolality 278 mOsm/L Invalid Interpretation Code [facility] Comment on above: Performed By: #### 5 503799695, 0791308455, 5691906904, 32597329, 0662491146, 4132175, 7448656 #### [facility] (DEFAULT) [address] [place] [address] 81332 Potassium [Moles/Vol] 4.0 mmol/L Normal 3.6-5.1 [facility] Comment on above: Performed By: #### 5 063223138, 8856542215, 3957566095, 32734775, 3458211179, 3794073, 1657617 #### [facility] (DEFAULT) [address] [place] [address] 27791 Protein [Mass/Vol] 7.1 g/dL Normal 6.5-8.1 [facility] Comment on above: Performed By: #### 5 395579099, 0610214557, 5307340603, 61239468, 8821077844, 8135644, 8642731 #### [facility] (DEFAULT) [address] [place] [address] Sodium [Moles/Vol] 138.0 mmol/L Normal 136.0-144.0 [facility] Comment on above: Performed By: #### 5 925560721, 4303796787, 9365774540, 58668014, 6580569554, 4889217, 3713428 #### [facility] (DEFAULT) [address] [place] [address] Urea nitrogen [Mass/Vol] 15 mg/dL Normal 8-26 [facility] Comment on above: Performed By: #### 5 410967793, 6194020103, 0453701509, 94509340, 9322976197, 3212932, 7128356 #### [facility] (DEFAULT) [address] [place] [address] Urea nitrogen/Creatinine [Mass ratio] 20.8 mg/mg High 4.6-16.2 [facility] Comment on above: Performed By: #### 5 579679188, 9290747560, 5460561717, 43606453, 7241458623, 2195613, 7246742 #### [facility] (DEFAULT) [address] [place] [address] 50437 Breakpoint Chem Normal [facility] Comment on above: Performed By: #### 5 179626445, 7119115582, 9757735196, 08229378, 6573154669, 0224395, 7278100 #### [facility] (DEFAULT) [address] [place] [address] ED Clinical Summaryon 2023 ED Clinical Summary [facility] - Emergency Department [address] [place] [address] ED Clinical Summary PERSON INFORMATION Name: HORACIO KEATING Age: 48 Years Sex: FEMALE : 1975 MRN: Acct#: Visit Reason: Shortness of breath; Anxiety; Blood pressure check; SOB Arrival: 03/15/2024 17:56:51 Discharge: 03/15/2024 20:31:00 LOS: 000 02:35 Check In: 03/15/2024 17:56:51 Checkout:03/15/2024 20:31:00 Address: [address] [place] [address] PCP: SAMI MARINELLI PROVIDER INFORMATION Provider Role [...] . Physical Exa (more content not included)... Normal [facility] ED Note - Physicianon 2023 ED [...] Psychiatric: (more content not included)... Normal [facility] ED Note-Nursingon 03-15-2024 ED Note-Nursing Patient presents to the ER via [facility] for shortness of breath, anxiety. Patient [...] lead was regular in rate Normal [facility] ED Patient Summaryon 024 ED Patient Summary [facility] - Emergency Department [address] [place] [address]52 PATIENT DISCHARGE INSTRUCTIONS Patient Information Name: HORACIO KEATING Age: 48 Years Date of : 1975 [facility]: [id number] Reason For Visit: Shortness of breath; Anxiety; Blood pressure check; SOB Arrival Time: 03/15/2024 17:56:51 Primary Care Physician: SAMI MARINELLI Attending Physician: Nicola Neff DO Comment: Visit Diagnosis: Diagnoses This Visit Anxiety ([id number]) Blood pressure check ([id number]) Hypertension (I10) Panic attack (F41.0) Shortness of breath ([id number]) Urinary tract infection (N39.0) The Pharmacy at [facility] is open Friday through Friday from 9A [...] alcohol and/or drug addiction problems; contact the [facility] 23/06 Crisis Hotline -Text 2XFOK aa [phone]. If you received any narcotics, sedation, or [...] legal documents With: Address: When: SAMI MARINELLI [address] [place] [address] [place] [address] Business (1) Within 3 to 5 days Comments: Call for follow up appointment Return if symptoms worsen Medication Information: The exam and treatment you received today in the [facility] Emergency Department were for an urgent problem and are not intended as complete care. It is important for you to follow up with a doctor, nurse practitioner, or physician?s enrichment assistant for ongoing care. If your symptoms [...] we can reach you if necessary. [facility] Emergency Department has provided you with a complete list of medications post discharge. Please inform your primary substance abuse counselor/provider of your visit and for further instruction [...] an (more content not included)... Normal [facility] Extra Greenon 03-15-2024 Tube Collected Yes Invalid Interpretation Code [facility] Comment on above: Performed By: #### 5 [id number], 6642976422, 2526627206, 38794525, 3954993635, 0469349, 5419532 #### [facility] (DEFAULT) [address] [place] [address] Extra Redon 03-15-2024 Tube Collected Yes Invalid Interpretation Code [facility] Comment on above: Performed By: #### 5 [id number], 5460888875, 4202103630, 55372381, 3748344031, 4484653, 9176681 #### [facility] (DEFAULT) [address] [place] [address] 02512 PTon 03-15-2024 INR Coag (PPP) [Relative time] 0.94 {INR} Normal 0.91-1.11 [facility] Comment on above: Performed By: #### 5 [id number], 8482908314, 5306666855, 27993536, 8576354085, 5813312, 4145893 #### [facility] (DEFAULT) [address] [place] [address] PT 9.8 second(s) Normal 9.7-11.8 [facility] Comment on above: Performed By: #### 5 305258923, 2509453908, 1068311923, 79510992, 8945907984, 0539308, 7431626 #### [facility] (DEFAULT) [address] [place] [address] TnI HSon 03-15-2024 Troponin I High Sensitivity 7.7 pg/mL Normal <=15.0 [facility] Comment on above: Performed By: #### 5 466098899, 5216643443, 8831543695, 64753120, 4868524736, 7277239, 9703488 #### [facility] (DEFAULT) [address] [place] [address] UA Rsufi9ob 03-15-2024 UA Amorph. 1+ [facility] Comment on above: Order Comment: Urina lysis Microscopic order added on by Discern Expert Rules system. Performed By: #### 5 8820793, 3487216491, 0215150 ####[facility] (DEFAULT)[address] [place] [address] UA Bacteria 3+ Normal [facility] Comment on above: Order Comment: Urina lysis Microscopic order added on by Spazz[employer] Expert Rules system. Performed By: #### 5 0758181, 1486988501, 3622181 ####[facility] (DEFAULT)[address] [place] [address] 41386 UA Mucous 1+ Normal [facility] Comment on above: Order Comment: Urina lysis Microscopic order added on by [employer] Expert Rules system. Performed By: #### 5 7554332, 0782411779, 9386071 ####[facility] (DEFAULT)[address] [place] [address] 12785 UA RBC 3-5 Normal [facility] Comment on above: Order Comment: Urina lysis Microscopic order added on by [employer] Expert Rules system. Performed By: #### 5 0871444, 9619530068, 7649463 ####[facility] (DEFAULT)[address] [place] [address] 63525 UA Renal Epi Rare Normal [facility] Comment on above: Order Comment: Urina lysis Microscopic order added on by [employer] Expert Rules system. Performed By: #### 5 2360032, 1459640223, 2782166 ####[facility] (DEFAULT)[address] [place] [address] 10972 UA Squam Epi Many Normal [facility] Comment on above: Order Comment: Urina lysis Microscopic order added on by Discern Expert Rules system. Performed By: #### 5 5463587, 9205357486, 3667353 ####[facility] (DEFAULT)[address] [place] [address] 35584 UA WBC 3-5 [facility] Comment on above: Order Comment: Urina lysis Microscopic order added on by Discern Expert Rules system. Performed By: #### 5 8033425, 7597456544, 6330210 ####[facility] (DEFAULT)[address] [place] [address] 40924 UA w Culture if Ind Standard on 03-15-2024 Breakpoint UA [facility] Comment on above: Performed By: #### 5 7452763, 2919566325, 4020551 ####[facility] (DEFAULT)[address] [place] [address] Color (U) Yellow [facility] Comment on above: Performed By: #### 5 5542806, 4410452872, 3602694 ####[facility] (DEFAULT)[address] [place] [address] Culture? Indicated Invalid Interpretation Code [facility] Comment on above: Result Comment: Resu lt created by rule GL_MAGR_ADD_UA_CULT Result created by rule GL_MAGR_ADD_UA_CULT Result created by rule GL_MAGR_ADD_UA_CULT1 Result created by rule GL_MAGR_ADD_UA_CULT Performed By: #### 5 [id number], 7880744626, 6370246 ####[facility] (DEFAULT)[address] [place] [address] 63608 Glucose (U) [Mass/Vol] Negative [facility] Comment on above: Performed By: #### 5 7042374, 5390850084, 1372158 ####[facility] (DEFAULT)[address] [place] [address] 86301 Ketones Ql (U) Negative [facility] Comment on above: Performed By: #### 5 1104389, 1583234886, 1712076 ####[facility] (DEFAULT)[address] [place] [address] 97930 Micro? Indicated Invalid Interpretation Code [facility] Comment on above: Result Comment: Resu lt created by rule GL_MAGR_ADD_UA_MICRO Performed By: #### 5 3722289, 6091178315, 9265336 ####[facility] (DEFAULT)[address] [place] [address] 51675 UA Bilirubin Negative Normal [facility] Comment on above: Performed By: #### 5 7490555, 8023067959, 2243134 ####[facility] (DEFAULT)[address] [place] [address] 43471 UA Blood TRACE Abnormal NEGATIVE [facility] Comment on above: Performed By: #### 5 8576259, 7189729796, 6166264 ####[facility] (DEFAULT)[address] [place] [address] 05440 UA Clarity SL CLOUDY Abnormal CLEAR [facility] Comment on above: Performed By: #### 5 9699551, 2907647153, 0841785 ####[facility] (DEFAULT)[address] [place] [address] 36855 UA Leuk Est LARGE Abnormal NEGATIVE [facility] Comment on above: Performed By: #### 5 3614316, 4636600395, 2128535 ####[facility] (DEFAULT)[address] [place] [address] 76879 UA Nitrite Negative Normal NEGATIVE [facility] Comment on above: Performed By: #### 5 4013675, 9502083295, 9926121 ####[facility] (DEFAULT)[address] [place] [address] 83279 UA pH 6.0 Normal 5-8 [facility] Comment on above: Performed By: #### 5 2602970, 1113502725, 3251762 ####[facility] (DEFAULT)[address] [place] [address] 16660 UA Protein Negative Normal NEGATIVE [facility] Comment on above: Performed By: #### 5 7624812, 9635277388, 3831517 ####[facility] (DEFAULT)[address] [place] [address] UA Spec Grav 1.015 Normal 1.001-1.035 [facility] Comment on above: Performed By: #### 5 8366111, 7053929670, 3886302 ####[facility] (DEFAULT)[address] [place] [address] UA Urobilinogen 0.2 mg/dL Normal 0.2-1.0 [facility] Comment on above: Performed By: #### 5 0355052, 9123517968, 6400542 ####[facility] (DEFAULT)[address] [place] [address] Urine Source Clean Catch Normal [facility] Comment on above: Performed By: #### 5 7981712, 6941876889, 5258371 ####[facility] (DEFAULT)[address] [place] [address] XR Chest 1 View Frontalon XR Chest [...] on 08-15-2023 Calcium [Mass/Vol] 9.1 mg/dL 8.6-10.3 [facility] Carbon dioxide, total [Moles /volume] in Serum or PlasmaOrdered By: Dedrick Fuller on 08-15-2023 CO2 [Moles/Vol] 26.7 mmol/L 21.0-31.0 [facility] Chloride [Moles/volume] in S altagracia or PlasmaOrdered By: Dedrick Fuller on 08-15-2023 Chloride [Moles/Vol] 107 mmol/L 98-107 [facility] Cholesterol [Mass/volume] in Serum or PlasmaOrdered By: Dedrick Fuller on 08-15-2023 Cholesterol [Mass/Vol] 166 mg/dL 140-200 [facility] Comment on above: Chol less than 200 m g/dl low riskChol 201-239 mg/dl borderline riskChol 240 mg/dl and greater high risk Cholesterol in LDL Calc [Mas s/Vol]Ordered By: Dedrick Fuller on 08-15-2023 Cholesterol in LDL [Mass/Vol] 95 mg/dL 0-100 [facility] Comment on above: LDL ATP III CLASSIFI CATIONLDL less than 100 mg/dL OptimalLDL 100-129 mg/dL Near or above optimalLDL 130-159 mg/dL Borderline highLDL 160-189 mg/dL HighLDL greater than 189 mg/dL Very high Cholesterol in VLDL Calc [Ma ss/Vol]Ordered By: Dedrick Fuller on 08-15-2023 Cholesterol in VLDL [Mass/Vol] 32 mg/dL [facility] Creatinine [Mass/volume] in Serum or PlasmaOrdered By: Dedrick Fuller on 08-15-2023 Creatinine [Mass/Vol] 0.77 mg/dL 0.60-1.20 [facility] Glucose [Mass/volume] in Ser um or PlasmaOrdered By: Dedrick Fuller on 08-15-2023 Glucose [Mass/Vol] 97 mg/dL 70-100 [facility] Comment on above: ADA recommended refe rence rangeRandom Glucose Reference Range is dependent on time and content of last meal. Glucose of more than 200 mg/dL in a nonstressed, ambulatory subject supports the diagnosis of Diabetes Mellitus. No Panel InformationOrdered By: Dedrick Fuller on 08-15-2023 Estimated GFR (CKD-EPI) > 60.0 mL/Min [facility] Creatinine Clearance (Chem N/A [facility] Potassium [Moles/volume] in Serum or PlasmaOrdered By: Dedrick Fuller on 08-15-2023 Potassium [Moles/Vol] 4.0 mmol/L 3.5-5.1 [facility] Serum or plasma anion gap de terminationOrdered By: Dedrick Fuller on 08-15-2023 Anion gap [Moles/Vol] 10.3 mmol/L 6.0-15.0 [facility] Serum or plasma high density lipoprotein (HDL) cholesterol measurementOrdered By: Dedrick Fuller on 08-15-2023 Cholesterol in HDL [Mass/Vol] 39 mg/dL 23-92 [facility] Comment on above: HDL CHOL ATP-III CLA SSIFICATION Cardiovascular RiskHDL > or equal to 60 mg/dL LOWHDL < 40 mg/dL HIGH Serum or plasma total choles terol/high density lipoprotein (HDL) cholesterol mass ratOrdered By: Dedrick Fuller on 08-15-2023 Cholesterol.total/Mirta sterol in HDL [Mass ratio] 4.3 {ratio} <5.0 [facility] Sodium [Moles/volume] in Ser um or PlasmaOrdered By: Dedrick Fuller on 08-15-2023 Sodium [Moles/Vol] 140 mmol/L 136-145 [facility] Triglyceride [Mass/volume] i n Serum or PlasmaOrdered By: Dedrick Fuller on 08-15-2023 Triglyceride [Mass/Vol] 162 mg/dL 0-149 [facility] Comment on above: TRIG ATP III CLASSIF ICATIONTRIG less than 150 mg/dL NormalTRIG 150-199 mg/dL Borderline highTRIG 200-500 mg/dL High TRIG greater than 500 mg/dL Very highStandard traceable to the Center for Disease Conrtrol and Prevention (CDC) test method. Urea nitrogen [Mass/volume] in Serum or PlasmaOrdered By: Dedrick Fuller on 08-15-2023 Urea nitrogen [Mass/Vol] 10 mg/dL 7-25 [facility] GTT 2 HRon 11-09-2022 Glucose [Mass/Vol] 107 mg/dL Critically high 74-106 T [facility] Comment on above: Performed By: #### U LG, CRP #### [facility] [address] [address] [address] Soo Donnelly Glucose [Mass/Vol] 152 mg/dL Normal [facility] Comment on above: Performed By: #### U LG, CRP #### [facility] [address] [place], [place] [address] Dr. Soo Donnelly Glucose [Mass/Vol] 121 mg/dL Normal [facility] Comment on above: Performed By: #### U LG, CRP #### [facility] [address] [place], [place] [address] ABD/PELV W CONon 10-01-20 CT ABD/PELV [...] LUZ ELENA SAUCEDA Date: 2022-10-01 10:[address] [facility] CBC AUTO DIFFon 09-18-2022 BASO # 0.0 103/ul Normal 0.0-0.[address] [facility] Comment on above: Performed By: #### A NAD #### [facility] [address] [address] [address] Soo Donnelly Basophils/100 WBC (Bld) 0.4 % Normal 0.2-2.0 [facility] Comment on above: Performed By: #### A NAD #### [facility] [address] [place] [address] Dr. Soo Donnelly EO # 0.1 103/ul Normal 0.0-0.[address] [facility] Comment on above: Performed By: #### A NAD #### [facility] [address] [place] [address] Dr. Soo Donnelly Eosinophils/100 WBC (Bld) 1.8 % Normal 0.9-7.[address] [facility] Comment on above: Performed By: #### A NAD #### [facility] [address] [place] [address] Dr. Soo Dnonelly Erythrocyte distribution width (RBC) [Ratio] 11.9 % Normal 11.0-15.[address] [facility] Comment on above: Performed By: #### A NAD #### [facility] [address] [place] [address] Dr. Soo Donnelly Hematocrit (Bld) [Volume fraction] 43.9 % Normal 36.0-48.[address] [facility] Comment on above: Performed By: #### A NAD #### [facility] [address] [place] [address] Dr. Soo Donnelly Hemoglobin (Bld) [Mass/Vol] 14.6 g/dL Normal 12.0-16.[address] [facility] Comment on above: Performed By: #### A NAD #### [facility] [address] [place] [address] Dr. Soo Donnelly IG # 0.01 10e3/ul Normal 0.00-0.[address] [facility] Comment on above: Performed By: #### A NAD #### [facility] [address] [place] [address] Dr. Soo Donnelly IG % 0.1 % Normal 0.0-0.[address] [facility] Comment on above: Performed By: #### A NAD #### [facility] [address] [place] [address] Dr. Soo Donnelly LYMPH # 2.7 103/ul Normal 1.2-3.[address] [facility] Comment on above: Performed By: #### A NAD #### [facility] [address] [place] [address] Dr. Soo Donnelly Lymphocytes/100 WBC (Bld) 39.9 % Normal 20.5-60.[address] [facility] Comment on above: Performed By: #### A NAD #### [facility] [address] [place] [address] Dr. Soo Donnelly MANUAL DIFF REQ NO Normal [facility] Comment on above: Performed By: #### A NAD #### [facility] [address] [place] [address] Dr. Soo Donnelly MCH (RBC) [Entitic mass] 31.7 pg Normal 26.7-34.[address] [facility] Comment on above: Performed By: #### A NAD #### [facility] [address] [place] [address] Dr. Soo Donnelly MCHC (RBC) [Mass/Vol] 33.3 g/dL Normal 29.9-35.[address] [facility] Comment on above: Performed By: #### A NAD #### [facility] [address] [place] [address] Dr. Soo Donnelly MCV (RBC) [Entitic vol] 95.4 fL Normal 81.0-99.0 [facility] Comment on above: Performed By: #### A NAD #### [facility] [address] [place] [address] Dr. Soo Donnelly MONO # 0.4 103/ul Normal 0.3-0.[address] [facility] Comment on above: Performed By: #### A NAD #### [facility] [address] [place] [address] Dr. Soo Donnelly Monocytes/100 WBC (Bld) 5.9 % Normal 1.7-12.0 [facility] Comment on above: Performed By: #### A NAD #### [facility] [address] [place] [address] Dr. Soo Donnelly NEUT # 3.5 103/ul Normal 1.4-6.5 [facility] Comment on above: Performed By: #### A NAD #### [facility] [address] [place] [address] Dr. Soo Donnelly Neutrophils/100 WBC (Bld) 51.9 % Normal 43.0-75.0 [facility] Comment on above: Performed By: #### A NAD #### [facility] [address] [place] [address] Dr. Soo Donnelly Platelet mean volume (Bld) [Entitic vol] 10.8 fL Normal 9.5-13.5 [facility] Comment on above: Performed By: #### A NAD #### [facility] [address] [place] [address] Dr. Soo Donnelly PLT 220 103/ul Normal 150-450 [facility] Comment on above: Performed By: #### A NAD #### [facility] [address] [place] [address] Dr. Soo Donnelly RBC 4.60 106/ul Normal 4.20-5.40 [facility] Comment on above: Performed By: #### A NAD #### [facility] [address] [place] [address] Dr. Soo Donnelly WBC 6.8 103/ul Normal 4.0-11.0 [facility] Comment on above: Performed By: #### A NAD #### [facility] [address] [place] [address] Dr. Soo Donnelly ER URINE PROFILEon 2 Bilirubin Ql (U) Negative Normal NEGATIVE [facility] Comment on above: Performed By: #### U LG, CRP #### [facility] [address] [place] [address] Dr. Soo Donnelly Clarity (U) CLEAR Normal CLEAR [facility] Comment on above: Performed By: #### U LG, CRP #### [facility] [address] [place] [address] Dr. Soo Donnelly Color (U) LT. YELLOW Normal YELLOW [facility] Comment on above: Performed By: #### U LG, CRP #### [facility] [address] [place] [address] Dr. Soo CORTEZ A micrscopic examination will be performed if indicated. Normal [facility] Comment on above: Performed By: #### U LG, CRP #### [facility] [address] [place] [address] Dr. Soo Donnelly Glucose Ql (U) Negative Normal NEGATIVE [facility] Comment on above: Performed By: #### U LG, CRP #### [facility] [address] [place] [address] Dr. Soo Donnelly Hemoglobin Ql (U) Negative Normal NEGATIVE [facility] Comment on above: Performed By: #### U LG, CRP #### [facility] [address] [place] [address] Dr. Soo Donnelly Ketones Ql (U) Negative Normal NEGATIVE [facility] Comment on above: Performed By: #### U LG, CRP #### [facility] [address] [place] [address] Dr. Soo Donnelly LEUKOCYTES Negative Normal NEGATIVE [facility] Comment on above: Performed By: #### U LG, CRP #### [facility] [address] [place] [address] Dr. Soo Donnelly Nitrite Ql (U) Negative Normal NEGATIVE [facility] Comment on above: Performed By: #### U LG, CRP #### [facility] [address] [place] [address] Dr. Soo Donnelly pH (U) 6.0 [pH] Normal 5-[address] [facility] Comment on above: Performed By: #### U LG, CRP #### [facility] [address] [place] [address] Dr. Soo Donnelly SPEC GRAVITY 1.015 Normal 1.005-<=1.[address] [facility] Comment on above: Performed By: #### U LG, CRP #### [facility] [address] [place] [address] Dr. Soo Donnelly UA PROTEIN Negative Normal NEGATIVE/ TRACE [facility] Comment on above: Performed By: #### U LG, CRP #### [facility] [address] [address] [address] Soo Donnelly UR MICRO IND NOT INDICATED Normal [facility] Comment on above: Performed By: #### U LG, CRP #### [facility] [address] [address] [address] Soo Donnelly Urobilinogen Qn (U) 0.2 {Roma'U}/dL Normal 0.2 - 1. [address] [facility] Comment on above: Performed By: #### U LG, CRP #### [facility] [address] [address] [address] Soo Donnelly PROF CHEM 8 (BAS METB)on Anion gap [Moles/Vol] 10.2 mmol/L Normal [facility] Comment on above: Performed By: #### B MP #### [facility] [address] [place] [address] Dr. Soo Donnelly Calcium [Mass/Vol] 8.7 mg/dL Normal 8.5-10.1 [facility] Comment on above: Performed By: #### B MP #### [facility] [address] [place] [address] Dr. Soo Donnelly Chloride [Moles/Vol] 103 mmol/L Normal 98-[address] [facility] Comment on above: Performed By: #### B MP #### [facility] [address] [address] [address] Soo Donnelly CO2 [Moles/Vol] 27.9 mmol/L Normal 21.0-32.0 [facility] Comment on above: Performed By: #### B MP #### [facility] [address] [place] [address] Dr. Soo Donnelly Creatinine [Mass/Vol] 0.80 mg/dL Normal 0.55-1.[address] [facility] Comment on above: Performed By: #### B MP #### [facility] [address] [place] [address] Dr. Soo Donnelly EGFR-AF CROATIAN >60 Normal >=60 [facility] Comment on above: Performed By: #### B MP #### [facility] [address] [address] [address] Soo Donnelly EGFR-NON AF CROATIAN >60 Normal >=[address] [facility] Comment on above: Performed By: #### B MP #### [facility] [address] [address] [address] Soo Donnelly Glucose [Mass/Vol] 103 mg/dL Normal 74-106 [facility] Comment on above: Performed By: #### B MP #### [facility] [address] [address] [address] Soo Donnelly Potassium [Moles/Vol] 4.1 mmol/L Normal 3.5-5.[address] [facility] Comment on above: Performed By: #### B MP #### [facility] [address] [address] [address] Soo Donnelly Sodium [Moles/Vol] 137 mmol/L Normal 136-145 [facility] Comment on above: Performed By: #### B MP #### [facility] [address] [address] [address] Soo Donnelly Urea nitrogen [Mass/Vol] 11.0 mg/dL Normal 7.0-18.[address] [facility] Comment on above: Performed By: #### B MP #### [facility] [address] [address] [address] Soo Donnelly Urea nitrogen/Creatinine [Mass ratio] 13.8 mg/mg Normal [facility] Comment on above: Performed By: #### B MP #### [facility] [address] [address] [address] Soo Donnelly XR KUB 1 VIEWon [...] ELENA SAUCEDA Date: 2022-09-18 12:12 Normal [facility] MG MAMM SCREEN 3D DEAN CADon 09-12-2022 MG MAMM SCREEN 3D DEAN CAD Patient: HORACIO KEATING Exam Date: 09/12/2022 : 1975 Gender:F Ordering : DR DELGADO MURILLO . Admission #: [id number] Family : Order #: [id number] CLICK HERE TO VIEW EXAM RADIOLOGY REPORT [...] ovarian cancer at age 77. LOCATION: [facility] BREAST COMPOSITION: Scattered areas fibroglandular density. [...] MD on 09/13/2022 at 07:46 Normal [facility] INSULINon 07-20-2022 Insulin 25.5 uIU/mL Critically high 2.6-24.9 [facility] Comment on above: Performed By: #### U LG, CRP #### [facility] [address] [address] [address] Soo Donnelly T4 LABCORPon 07-20-2022 T4 [Mass/Vol] 7.4 ug/dL Normal 4.5-12.0 [facility] Comment on above: Performed By: #### A NAD #### [facility] [address] [place] [address] Dr. Soo Donnelly CBC W MANUAL DIFFon 07-19-20 ATYPICAL LYMPH # Normal [facility] Comment on above: Performed By: #### B UN, CREA #### [facility] [address] [place] [address] Dr. Soo Donnelly ATYPICAL LYMPH % Normal [facility] Comment on above: Performed By: #### B UN, CREA #### [facility] [address] [place] [address] Dr. Soo Donnelly BAND # Normal 0.0-0.[address] [facility] Comment on above: Performed By: #### B UN, CREA #### [facility] [address] [place] [address] Dr. Soo Donnelly BAND % Normal 0-[address] [facility] Comment on above: Performed By: #### B UN, CREA #### [facility] [address] [place] [address] Dr. Soo Donnelly BASOM # 0.00 103/ul Normal 0.00-0.[address] [facility] Comment on above: Performed By: #### B UN, CREA #### [facility] [address] [place] [address] Dr. Soo Donnelly BASOM % 0.0 % Critically low 0.2-2.0 [facility] Comment on above: Performed By: #### B UN, CREA #### [facility] [address] [place] [address] Dr. Soo Donnelly BLAST # Normal [facility] Comment on above: Performed By: #### B UN, CREA #### [facility] [address] [place] [address] Dr. Soo Donnelly BLAST % Normal [facility] Comment on above: Performed By: #### B UN, CREA #### [facility] [address] [place] [address] Dr. Soo Donnelly CORRECTED WBC Normal 4.0-11.0 [facility] Comment on above: Performed By: #### B UN, CREA #### [facility] [address] [address] [address] Soo Donnelly EOS # 0.31 103/ul Normal 0.00-0.[address] [facility] Comment on above: Performed By: #### B UN, CREA #### [facility] [address] [address] [address] Soo Donnelly EOS% 2.0 % Normal 0.9-7.0 [facility] Comment on above: Performed By: #### B UN, CREA #### [facility] [address] [address] [address] Soo Donnelly HCT 41.6 % Normal 36.0-48.0 [facility] Comment on above: Performed By: #### B UN, CREA #### [facility] [address] [place] [address] Dr. Soo Donnelly HGB 13.8 g/dl Normal 12.0-16.0 [facility] Comment on above: Performed By: #### B UN, CREA #### [facility] [address] [place] [address] Dr. Soo Donnelly LYMPHM # 5.27 103/ul Critically high 1.20-3.80 [facility] Comment on above: Performed By: #### B UN, CREA #### [facility] [address] [place] [address] Dr. Soo Donnelly LYMPHM% 34.0 % Normal 20.5-60.0 [facility] Comment on above: Performed By: #### B UN, CREA #### [facility] [address] [place] [address] Dr. Soo Donnelly MCH 31.5 pg Normal 26.7-34.0 [facility] Comment on above: Performed By: #### B UN, CREA #### [facility] [address] [place] [address] Dr. Soo Donnelly MCHC 33.2 g/dl Normal 29.9-35.2 [facility] Comment on above: Performed By: #### B UN, CREA #### [facility] [address] [place] [address] Dr. Soo Donnelly MCV 95.0 fL Normal 81.0-99.[address] [facility] Comment on above: Performed By: #### B UN, CREA #### [facility] [address] [place] [address] Dr. Soo Donnelly METAMYELOCYTE # Normal [facility] Comment on above: Performed By: #### B UN, CREA #### [facility] [address] [place] [address] Dr. Soo Donnelly METAMYELOCYTE % Normal [facility] Comment on above: Performed By: #### B UN, CREA #### [facility] [address] [place] [address] Dr. Soo Donnelly MONOM# 0.93 103/ul Critically high 0.30-0.80 [facility] Comment on above: Performed By: #### B UN, CREA #### [facility] [address] [place] [address] Dr. Soo Donnelly MONOM% 6.0 % Normal 1.7-12.[address] [facility] Comment on above: Performed By: #### B UN, CREA #### [facility] [address] [place] [address] Dr. Soo Donnelly MPV 10.1 fL Normal 9.5-13.[address] [facility] Comment on above: Performed By: #### B UN, CREA #### [facility] [address] [place] [address] Dr. Soo Donnelly MYELOCYTE # Normal [facility] Comment on above: Performed By: #### B UN, CREA #### [facility] [address] [place] [address] Dr. Soo Donnelly MYELOCYTE % Normal [facility] Comment on above: Performed By: #### B UN, CREA #### [facility] [address] [place] [address] Dr. Soo Donnelly NRBC Normal [facility] Comment on above: Performed By: #### B UN, CREA #### [facility] [address] [place] [address] Dr. Soo Donnelly PLT 260 103/ul Normal 150-450 [facility] Comment on above: Performed By: #### B UN, CREA #### [facility] [address] [address] [address] Soo Donnelly RBC 4.38 106/ul Normal 4.20-5.[address] [facility] Comment on above: Performed By: #### B UN, CREA #### [facility] [address] [address] [address] Soo Donnelly RDW 12.5 % Normal 11.0-15.[address] [facility] Comment on above: Performed By: #### B UN, CREA #### [facility] [address] [address] [address] Soo Donnelly SEG # 8.99 103/ul Critically high 1.40-6.50 [facility] Comment on above: Performed By: #### B UN, CREA #### [facility] [address] [address] [address] Soo Donnelly SEG % 58.0 % Normal 43.0-75.[address] [facility] Comment on above: Performed By: #### B UN, CREA #### [facility] [address] [address] [address] Soo Donnelly WBC 15.5 103/ul Critically high 4.0-11.0 [facility] Comment on above: Performed By: #### B UN, CREA #### [facility] [address] [address] [address] Soo Donnelly FREE T3on 07-19-2022 FREE T3 2.62 pg/mlL Normal 2.18-3.[address] [facility] Comment on above: Performed By: #### U LG, CRP #### [facility] [address] [address] [address] Soo Donnelly GLYCOHEMOGLOBIN A1Con 2021 ADA RECOMMENDATION SEE BELOW Normal [facility] Comment on above: Result Comment: ADA RECOMMENDED LIMIT 4.0 - 6.0 ADA THERAPEUTIC TARGET < 7.0 ACTION SUGGESTED > 7.0 Performed By: #### U LG, CRP #### [facility] [address] [address] [address] Soo Donnelly Glucose [Mass/Vol] 137 mg/dL Normal [facility] Comment on above: Performed By: #### U LG, CRP #### [facility] [address] [address] [address] Soo Donnelly HbA1c (Bld) [Mass fraction] 6.4 % Critically high 4.5-6.[address] [facility] Comment on above: Performed By: #### U LG, CRP #### [facility] [address] [address] [address] Soo Donnelly LIPID PROFILEon 07-19-2022 CHOL-HDL RATIO NORM SEE BELOW Normal [facility] Comment on above: Result Comment: 3.3 - 4.4 LOW RISK 4.4 - 7.1 AVERAGE RISK 7.1 - 11.0 MODERATE RISK >11.0 HIGH RISK Performed By: #### U LG, CRP #### [facility] [address] [address] [address] Soo Donnelly Cholesterol [Mass/Vol] 226 mg/dL Critically high <=[address] [facility] Comment on above: Performed By: #### U LG, CRP #### [facility] [address] [address] [address] Soo Donnelly Cholesterol in HDL [Mass/Vol] 33 mg/dL Critically low 40-[address] [facility] Comment on above: Performed By: #### U LG, CRP #### [facility] [address] [address] [address] Soo Donnelly Cholesterol in LDL [Mass/Vol] 135.2 mg/dL Normal [facility] Comment on above: Performed By: #### U LG, CRP #### [facility] [address] [address] [address] Soo Donnelly Cholesterol.total/Mirta sterol in HDL [Mass ratio] 6.8 {ratio} Normal [facility] Comment on above: Performed By: #### U LG, CRP #### [facility] [address] [address] [address] Soo Donnelly HDL NORMAL > or = 60 mg/dl - LO W CARDIOVASCULAR RISK <40 mg/dl - HIGH CARDIOVASCULAR RISK Normal [facility] Comment on above: Performed By: #### U LG, CRP #### [facility] [address] [address] [address] Soo Donnelly LDL CALC NORMAL SEE BELOW Normal [facility] Comment on above: Result Comment: <100 mg/dl OPTIMAL 100 - 129 mg/dl NEAR OR ABOVE OPTIMAL 130 - 159 mg/dl BORDERLINE HIGH 160 - 189 mg/dl HIGH >190 mg/dl VERY HIGH Performed By: #### U LG, CRP #### [facility] [address] [address] [address] Soo Donnelly Triglyceride [Mass/Vol] 289 mg/dL Critically high <=[address] [facility] Comment on above: Performed By: #### U LG, CRP #### [facility] [address] [address] [address] Soo Donnelly VLDL CALC 57.8 mg/dL Normal [facility] Comment on above: Performed By: #### U LG, CRP #### [facility] [address] [address] [address] Soo Donnelly PROF 14(COMP METB)on 022 Albumin [Mass/Vol] 3.2 g/dL Critically low 3.4-5.0 [facility] Comment on above: Performed By: #### U LG, CRP #### [facility] [address] [address] [address] Soo Donnelly Albumin/Globulin [Mass ratio] 1.1 {ratio} Normal [facility] Comment on above: Performed By: #### U LG, CRP #### [facility] [address] [address] [address] Soo Donnelly ALP [Catalytic activity/Vol] 41 U/L Critically low 46-[address] [facility] Comment on above: Performed By: #### U LG, CRP #### [facility] [address] [address] [address] Soo Donnelly ALT [Catalytic activity/Vol] 46 U/L Normal 14-[address] [facility] Comment on above: Performed By: #### U LG, CRP #### [facility] [address] [address] [address] Soo Donnelly Anion gap [Moles/Vol] 9.3 mmol/L Normal [facility] Comment on above: Performed By: #### U LG, CRP #### [facility] [address] [address] [address] Soo Dnonelly AST [Catalytic activity/Vol] 18 U/L Normal 15-[address] [facility] Comment on above: Performed By: #### U LG, CRP #### [facility] [address] [address] [address] Soo Donnelly Bilirubin [Mass/Vol] 0.7 mg/dL Normal 0.2-1.[address] [facility] Comment on above: Performed By: #### U LG, CRP #### [facility] [address] [address] [address] Soo Donnelly Calcium [Mass/Vol] 8.1 mg/dL Critically low 8.5-10.1 [facility] Comment on above: Performed By: #### U LG, CRP #### [facility] [address] [address] [address] Soo Donnelly Chloride [Moles/Vol] 101 mmol/L Normal 98-[address] [facility] Comment on above: Performed By: #### U LG, CRP #### [facility] [address] [address] [address] Soo Donnelly CO2 [Moles/Vol] 31.1 mmol/L Normal 21.0-32.0 [facility] Comment on above: Performed By: #### U LG, CRP #### [facility] [address] [address] [address] Soo Donnelly Creatinine [Mass/Vol] 0.77 mg/dL Normal 0.55-1.[address] [facility] Comment on above: Performed By: #### U LG, CRP #### [facility] [address] [address] [address] Soo Donnelly EGFR-AF CROATIAN >60 Normal >=60 [facility] Comment on above: Performed By: #### U LG, CRP #### [facility] [address] [address] [address] Soo Donnelly EGFR-NON AF CROATIAN >60 Normal >=[address] [facility] Comment on above: Performed By: #### U LG, CRP #### [facility] [address] [address] [address] Soo Donnelly Globulin (S) [Mass/Vol] 3.0 g/dL Normal T [facility] Comment on above: Performed By: #### U LG, CRP #### [facility] [address] [address] [address] Soo Donnelly Glucose [Mass/Vol] 104 mg/dL Normal 74-106 [facility] Comment on above: Performed By: #### U GL, CRP #### [facility] [address] [address] [address] Soo Donnelly Potassium [Moles/Vol] 3.4 mmol/L Critically low 3.5-5.[address] [facility] Comment on above: Performed By: #### U LG, CRP #### [facility] [address] [address] [address] Soo Donnelly Protein [Mass/Vol] 6.2 g/dL Critically low 6.4-8.2 [facility] Comment on above: Performed By: #### U GL, CRP #### [facility] [address] [address] [address] Soo Donnelly Sodium [Moles/Vol] 138 mmol/L Normal 136-145 [facility] Comment on above: Performed By: #### U LG, CRP #### [facility] [address] [address] [address] Soo Donnelly Urea nitrogen [Mass/Vol] 16.0 mg/dL Normal 7.0-18.[address] [facility] Comment on above: Performed By: #### U LG, CRP #### [facility] [address] [address] [address] Soo Donnelly Urea nitrogen/Creatinine [Mass ratio] 20.8 mg/mg Normal [facility] Comment on above: Performed By: #### U LG, CRP #### [facility] [address] [place] [address] Dr. Soo Donnelly TSHon 07-19-2022 TSH 3.262 uIU/mL Normal 0.358-3.740 [facility] Comment on above: Performed By: #### U LG, CRP #### [facility] [address] [place] [address] Dr. Soo Donnelly CBC AUTO DIFFon 05-18-2022 BASO # 0.0 103/ul Normal 0.0-0.[address] [facility] Comment on above: Performed By: #### U LG, CRP #### [facility] [address] [place] [address] Dr. Soo Donnelly Basophils/100 WBC (Bld) 0.2 % Normal 0.2-2.0 [facility] Comment on above: Performed By: #### U LG, CRP #### [facility] [address] [place] [address] Dr. Soo Donnelly EO # 0.0 103/ul Normal 0.0-0.[address] [facility] Comment on above: Performed By: #### U LG, CRP #### [facility] [address] [place] [address] Dr. Soo Donnelly Eosinophils/100 WBC (Bld) 0.2 % Critically low 0.9-7.[address] [facility] Comment on above: Performed By: #### U LG, CRP #### [facility] [address] [place] [address] Dr. Soo Donnelly Erythrocyte distribution width (RBC) [Ratio] 12.8 % Normal 11.0-15.[address] [facility] Comment on above: Performed By: #### U LG, CRP #### [facility] [address] [place] [address] Dr. Soo Donnelly Hematocrit (Bld) [Volume fraction] 35.7 % Critically low 36.0-48.[address] [facility] Comment on above: Performed By: #### U LG, CRP #### [facility] [address] [place] [address] Dr. Soo Donnelly Hemoglobin (Bld) [Mass/Vol] 11.5 g/dL Critically low 12.0-16.[address] [facility] Comment on above: Performed By: #### U LG, CRP #### [facility] [address] [place] [address] Dr. Soo Donnelly IG # 0.07 10e3/ul Critically high 0.00-0.03 [facility] Comment on above: Performed By: #### U LG, CRP #### [facility] [address] [place] [address] Dr. Soo Donnelly IG % 0.5 % Normal 0.0-0.[address] [facility] Comment on above: Performed By: #### U LG, CRP #### [facility] [address] [place] [address] Dr. Soo Donnelly LYMPH # 4.1 103/ul Critically high 1.2-3.8 [facility] Comment on above: Performed By: #### U LG, CRP #### [facility] [address] [place] [address] Dr. Soo Donnelly Lymphocytes/100 WBC (Bld) 28.3 % Normal 20.5-60.[address] [facility] Comment on above: Performed By: #### U LG, CRP #### [facility] [address] [place] [address] Dr. Soo Donnelly MANUAL DIFF REQ NO Normal [facility] Comment on above: Performed By: #### U LG, CRP #### [facility] [address] [place] [address] Dr. Soo Donnelly MCH (RBC) [Entitic mass] 31.7 pg Normal 26.7-34.0 [facility] Comment on above: Performed By: #### U LG, CRP #### [facility] [address] [place] [address] Dr. Soo Donnelly MCHC (RBC) [Mass/Vol] 32.2 g/dL Normal 29.9-35.2 [facility] Comment on above: Performed By: #### U LG, CRP #### [facility] [address] [place] [address] Dr. Soo Donnelly MCV (RBC) [Entitic vol] 98.3 fL Normal 81.0-99.0 [facility] Comment on above: Performed By: #### U LG, CRP #### [facility] [address] [place] [address] Dr. Soo Donnelly MONO # 0.8 103/ul Normal 0.3-0.[address] [facility] Comment on above: Performed By: #### U LG, CRP #### [facility] [address] [place] [address] Dr. Soo Donnelly Monocytes/100 WBC (Bld) 5.6 % Normal 1.7-12.0 [facility] Comment on above: Performed By: #### U LG, CRP #### [facility] [address] [place] [address] Dr. Soo Donnelly NEUT # 9.4 103/ul Critically high 1.4-6.5 [facility] Comment on above: Performed By: #### U LG, CRP #### [facility] [address] [place] [address] Dr. Soo Donnelly Neutrophils/100 WBC (Bld) 65.2 % Normal 43.0-75.[address] [facility] Comment on above: Performed By: #### U LG, CRP #### [facility] [address] [place] [address] Dr. Soo Donnelly Platelet mean volume (Bld) [Entitic vol] 10.8 fL Normal 9.5-13.[address] [facility] Comment on above: Performed By: #### U LG, CRP #### [facility] [address] [place] [address] Dr. Soo Donnelly PLT 191 103/ul Normal 150-450 [facility] Comment on above: Performed By: #### U LG, CRP #### [facility] [address] [place] [address] Dr. Soo Donnelly RBC 3.63 106/ul Critically low 4.20-5.40 [facility] Comment on above: Performed By: #### U LG, CRP #### [facility] [address] [address] [address] Soo Donnelly WBC 14.4 103/ul Critically high 4.0-11.0 [facility] Comment on above: Performed By: #### U LG, CRP #### [facility] [address] [place] [address] Dr. Soo Donnelly BUNon 05-17-2022 Urea nitrogen [Mass/Vol] 8.0 mg/dL Normal 7.0-18.0 [facility] Comment on above: Performed By: #### B UN, CREA #### [facility] [address] [address] [address] Soo Donnelly CBC AUTO DIFFon 05-17-2022 BASO # 0.0 103/ul Normal 0.0-0.[address] [facility] Comment on above: Performed By: #### U LG, CRP #### [facility] [address] [place] [address] Dr. Soo Donnelly Basophils/100 WBC (Bld) 0.1 % Critically low 0.2-2.[address] [facility] Comment on above: Performed By: #### U LG, CRP #### [facility] [address] [place] [address] Dr. Soo Donnelly EO # 0.0 103/ul Normal 0.0-0.7 [facility] Comment on above: Performed By: #### U LG, CRP #### [facility] [address] [place] [address] Dr. Soo Donnelly Eosinophils/100 WBC (Bld) 0.0 % Critically low 0.9-7.0 [facility] Comment on above: Performed By: #### U LG, CRP #### [facility] [address] [place] [address] Dr. Soo Donnelly Erythrocyte distribution width (RBC) [Ratio] 12.5 % Normal 11.0-15.[address] [facility] Comment on above: Performed By: #### U LG, CRP #### [facility] [address] [place] [address] Dr. Soo Donnelly Hematocrit (Bld) [Volume fraction] 38.5 % Normal 36.0-48.[address] [facility] Comment on above: Performed By: #### U LG, CRP #### [facility] [address] [address] [address] Soo Donnelly Hemoglobin (Bld) [Mass/Vol] 13.0 g/dL Normal 12.0-16.[address] [facility] Comment on above: Performed By: #### U LG, CRP #### [facility] [address] [address] [address] Soo Donnelly IG # 0.16 10e3/ul Critically high 0.00-0.03 [facility] Comment on above: Performed By: #### U LG, CRP #### [facility] [address] [place] [address] Dr. Soo Donnelly IG % 0.7 % Critically high 0.0-0.5 [facility] Comment on above: Performed By: #### U LG, CRP #### [facility] [address] [place] [address] Dr. Soo Donnelly LYMPH # 3.0 103/ul Normal 1.2-3.[address] [facility] Comment on above: Performed By: #### U LG, CRP #### [facility] [address] [place] [address] Dr. Soo Donnelly Lymphocytes/100 WBC (Bld) 12.2 % Critically low 20.5-60.[address] [facility] Comment on above: Performed By: #### U LG, CRP #### [facility] [address] [place] [address] Dr. Soo Donnelly MANUAL DIFF REQ NO Normal [facility] Comment on above: Performed By: #### U LG, CRP #### [facility] [address] [address] [address] Soo Donnelly MCH (RBC) [Entitic mass] 32.4 pg Normal 26.7-34.[address] [facility] Comment on above: Performed By: #### U LG, CRP #### [facility] [address] [place] [address] Dr. Soo Donnelly MCHC (RBC) [Mass/Vol] 33.8 g/dL Normal 29.9-35.[address] [facility] Comment on above: Performed By: #### U LG, CRP #### [facility] [address] [place] [address] Dr. Soo Donnelly MCV (RBC) [Entitic vol] 96.0 fL Normal 81.0-99.0 [facility] Comment on above: Performed By: #### U LG, CRP #### [facility] [address] [place] [address] Dr. Soo Donnelly MONO # 1.3 103/ul Critically high 0.3-0.8 [facility] Comment on above: Performed By: #### U LG, CRP #### [facility] [address] [place] [address] Dr. Soo Donnelly Monocytes/100 WBC (Bld) 5.4 % Normal 1.7-12.0 [facility] Comment on above: Performed By: #### U LG, CRP #### [facility] [address] [place] [address] Dr. Soo Donnelly NEUT # 19.8 103/ul Critically high 1.4-6.5 [facility] Comment on above: Performed By: #### U LG, CRP #### [facility] [address] [place] [address] Dr. Soo Donnelly Neutrophils/100 WBC (Bld) 81.6 % Critically high 43.0-75.[address] [facility] Comment on above: Performed By: #### U LG, CRP #### [facility] [address] [place] [address] Dr. Soo Donnelly Platelet mean volume (Bld) [Entitic vol] 10.5 fL Normal 9.5-13.[address] [facility] Comment on above: Performed By: #### U LG, CRP #### [facility] [address] [place] [address] Dr. Soo Donnelly PLT 253 103/ul Normal 150-450 [facility] Comment on above: Performed By: #### U LG, CRP #### [facility] [address] [place] [address] Dr. Soo Donnelly RBC 4.01 106/ul Critically low 4.20-5.40 [facility] Comment on above: Performed By: #### U LG, CRP #### [facility] [address] [address] [address] Soo Donnelly WBC 24.3 103/ul Critically high 4.0-11.0 [facility] Comment on above: Performed By: #### U LG, CRP #### [facility] [address] [address] [address] Soo Donnelly BASO # 0.0 103/ul Normal 0.0-0.1 [facility] Comment on above: Performed By: #### U LG, CRP #### [facility] [address] [place] [address] Dr. Soo Donnelly Basophils/100 WBC (Bld) 0.1 % Critically low 0.2-2.[address] [facility] Comment on above: Performed By: #### U LG, CRP #### [facility] [address] [address] [address] Soo Donnelly EO # 0.0 103/ul Normal 0.0-0.[address] [facility] Comment on above: Performed By: #### U LG, CRP #### [facility] [address] [place] [address] Dr. Soo Donnelly Eosinophils/100 WBC (Bld) 0.0 % Critically low 0.9-7.[address] [facility] Comment on above: Performed By: #### U LG, CRP #### [facility] [address] [place] [address] Dr. Soo Donnelly Erythrocyte distribution width (RBC) [Ratio] 12.3 % Normal 11.0-15.[address] [facility] Comment on above: Performed By: #### U LG, CRP #### [facility] [address] [place] [address] Dr. Soo Donnelly Hematocrit (Bld) [Volume fraction] 41.2 % Normal 36.0-48.[address] [facility] Comment on above: Performed By: #### U LG, CRP #### [facility] [address] [address] [address] Soo Donnelly Hemoglobin (Bld) [Mass/Vol] 13.5 g/dL Normal 12.0-16.[address] [facility] Comment on above: Performed By: #### U LG, CRP #### [facility] [address] [address] [address] Soo Donnelly IG # 0.11 10e3/ul Critically high 0.00-0.03 [facility] Comment on above: Performed By: #### U LG, CRP #### [facility] [address] [place] [address] Dr. Soo Donnelly IG % 0.5 % Normal 0.0-0.5 [facility] Comment on above: Performed By: #### U LG, CRP #### [facility] [address] [place] [address] Dr. Soo Donnelly LYMPH # 1.6 103/ul Normal 1.2-3.8 [facility] Comment on above: Performed By: #### U LG, CRP #### [facility] [address] [place] [address] Dr. Soo Donnelly Lymphocytes/100 WBC (Bld) 7.8 % Critically low 20.5-60.0 [facility] Comment on above: Performed By: #### U LG, CRP #### [facility] [address] [place] [address] Dr. Soo Donnelly MANUAL DIFF REQ NO Normal [facility] Comment on above: Performed By: #### U LG, CRP #### [facility] [address] [address] [address] Soo Donnelly MCH (RBC) [Entitic mass] 31.8 pg Normal 26.7-34.0 [facility] Comment on above: Performed By: #### U LG, CRP #### [facility] [address] [place] [address] Dr. Soo Donnelly MCHC (RBC) [Mass/Vol] 32.8 g/dL Normal 29.9-35.2 [facility] Comment on above: Performed By: #### U LG, CRP #### [facility] [address] [address] [address] Soo Donnelly MCV (RBC) [Entitic vol] 96.9 fL Normal 81.0-99.0 [facility] Comment on above: Performed By: #### U LG, CRP #### [facility] [address] [place] [address] Dr. Soo Donnelly MONO # 0.4 103/ul Normal 0.3-0.[address] [facility] Comment on above: Performed By: #### U LG, CRP #### [facility] [address] [place] [address] Dr. Soo Donnelly Monocytes/100 WBC (Bld) 2.0 % Normal 1.7-12.0 [facility] Comment on above: Performed By: #### U LG, CRP #### [facility] [address] [place] [address] Dr. Soo Donnelly NEUT # 18.1 103/ul Critically high 1.4-6.5 [facility] Comment on above: Performed By: #### U LG, CRP #### [facility] [address] [place] [address] Dr. Soo Donnelly Neutrophils/100 WBC (Bld) 89.6 % Critically high 43.0-75.[address] [facility] Comment on above: Performed By: #### U LG, CRP #### [facility] [address] [place] [address] Dr. Soo Donnelly Platelet mean volume (Bld) [Entitic vol] 11.0 fL Normal 9.5-13.[address] [facility] Comment on above: Performed By: #### U LG, CRP #### [facility] [address] [place] [address] Dr. Soo Donnelly PLT 223 103/ul Normal 150-450 [facility] Comment on above: Performed By: #### U LG, CRP #### [facility] [address] [place] [address] Dr. Soo Donnelly RBC 4.25 106/ul Normal 4.20-5.[address] [facility] Comment on above: Performed By: #### U LG, CRP #### [facility] [address] [address] [address] Soo Donnelly WBC 20.2 103/ul Critically high 4.0-11.0 [facility] Comment on above: Performed By: #### U LG, CRP #### [facility] [address] [address] [address] Soo Donnelly CREATININEon 05-17-2022 Creatinine [Mass/Vol] 0.97 mg/dL Normal 0.55-1.[address] [facility] Comment on above: Performed By: #### B UN, CREA #### [facility] [address] [address] [address] Soo Donnelly EGFR-AF CROATIAN >60 Normal >=60 [facility] Comment on above: Performed By: #### B UN, CREA #### [facility] [address] [address] [address] Soo Donnelly EGFR-NON AF CROATIAN >60 Normal >=[address] [facility] Comment on above: Performed By: #### B UN, CREA #### [facility] [address] [address] [address] Soo Donnelly CTA CHEST WO W [...] LUZ ELENA SAUCEDA Date: 2022-05-17 16:[address] [facility] XR CHEST 2 Von 05-17-2022 XR [...] SAMI JONES Date: 2022-05-17 16:10 Normal [facility] CBC AUTO DIFFon 05-16-2022 BASO # 0.1 103/ul Normal 0.0-0.[address] [facility] Comment on above: Performed By: #### B , CREA #### [facility] [address] [address] [address] Soo Donnelly Basophils/100 WBC (Bld) 0.5 % Normal 0.2-2.0 [facility] Comment on above: Performed By: #### B , CREA #### [facility] [address] [address] [address] Soo Donnelly EO # 0.1 103/ul Normal 0.0-0.[address] [facility] Comment on above: Performed By: #### B UN, CREA #### [facility] [address] [address] [address] Soo Donnelly Eosinophils/100 WBC (Bld) 1.0 % Normal 0.9-7.[address] [facility] Comment on above: Performed By: #### B , CREA #### [facility] [address] [address] [address] Soo Donnelly Erythrocyte distribution width (RBC) [Ratio] 12.2 % Normal 11.0-15.[address] [facility] Comment on above: Performed By: #### B UN, CREA #### [facility] [address] [place] [address] Dr. Soo Donnelly Hematocrit (Bld) [Volume fraction] 41.2 % Normal 36.0-48.[address] [facility] Comment on above: Performed By: #### B UN, CREA #### [facility] [address] [place] [address] Dr. Soo Donnelly Hemoglobin (Bld) [Mass/Vol] 13.9 g/dL Normal 12.0-16.[address] [facility] Comment on above: Performed By: #### B UN, CREA #### [facility] [address] [place] [address] Dr. Soo Donnelly IG # 0.04 10e3/ul Critically high 0.00-0.03 [facility] Comment on above: Performed By: #### B UN, CREA #### [facility] [address] [place] [address] Dr. Soo Donnelly IG % 0.4 % Normal 0.0-0.[address] [facility] Comment on above: Performed By: #### B UN, CREA #### [facility] [address] [place] [address] Dr. Soo Donnelly LYMPH # 3.5 103/ul Normal 1.2-3.[address] [facility] Comment on above: Performed By: #### B UN, CREA #### [facility] [address] [place] [address] Dr. Soo Donnelly Lymphocytes/100 WBC (Bld) 35.3 % Normal 20.5-60.[address] [facility] Comment on above: Performed By: #### B UN, CREA #### [facility] [address] [place] [address] Dr. Soo Donnelly MANUAL DIFF REQ NO Normal [facility] Comment on above: Performed By: #### B UN, CREA #### [facility] [address] [place] [address] Dr. Soo Donnelly MCH (RBC) [Entitic mass] 31.7 pg Normal 26.7-34.[address] [facility] Comment on above: Performed By: #### B UN, CREA #### [facility] [address] [place] [address] Dr. Soo Donnelly MCHC (RBC) [Mass/Vol] 33.7 g/dL Normal 29.9-35.[address] [facility] Comment on above: Performed By: #### B UN, CREA #### [facility] [address] [place] [address] Dr. Soo Donnelly MCV (RBC) [Entitic vol] 94.1 fL Normal 81.0-99.0 [facility] Comment on above: Performed By: #### B UN, CREA #### [facility] [address] [place] [address] Dr. Soo Donnelly MONO # 0.5 103/ul Normal 0.3-0.[address] [facility] Comment on above: Performed By: #### B UN, CREA #### [facility] [address] [place] [address] Dr. Soo Donnelly Monocytes/100 WBC (Bld) 5.4 % Normal 1.7-12.0 [facility] Comment on above: Performed By: #### B UN, CREA #### [facility] [address] [place] [address] Dr. Soo Donnelly NEUT # 5.6 103/ul Normal 1.4-6.[address] [facility] Comment on above: Performed By: #### B UN, CREA #### [facility] [address] [place] [address] Dr. Soo Donnelly Neutrophils/100 WBC (Bld) 57.4 % Normal 43.0-75.[address] [facility] Comment on above: Performed By: #### B UN, CREA #### [facility] [address] [place] [address] Dr. Soo Donnelly Platelet mean volume (Bld) [Entitic vol] 10.3 fL Normal 9.5-13.[address] [facility] Comment on above: Performed By: #### B UN, CREA #### [facility] [address] [address] [address] Soo Donnelly PLT 235 103/ul Normal 150-450 [facility] Comment on above: Performed By: #### B UN, CREA #### [facility] [address] [address] [address] Soo Donnelly RBC 4.38 106/ul Normal 4.20-5.[address] [facility] Comment on above: Performed By: #### B UN, CREA #### [facility] [address] [address] [address] Soo Donnelly WBC 9.8 103/ul Normal 4.0-11.[address] [facility] Comment on above: Performed By: #### B UN, CREA #### [facility] [address] [place] [address] Dr. Soo Donnelly PREG QUANT HCGon 05-16-2022 HCG QUANT <1 Normal [facility] Comment on above: Performed By: #### U LG, CRP #### [facility] [address] [place] [address] Dr. Soo Donnelly HCG RANGE SEE BELOW Normal [facility] Comment on above: Result Comment: 5-50 0-1 WEEK 40-300 1-2 WEEKS 100-1,000 2-3 WEEKS 500-6,000 3-4 WEEKS 5,000-200,000 1-2 MONTHS 10,000-100,000 2-3 MONTHS 3,000-50,000 2ND TRIMESTER 1,000-50,000 3RD TRIMESTER Performed By: #### U LG, CRP #### [facility] [address] [place] [address] Dr. Soo Donnelly Covid-19 PCR (CVDTBH)on 05-01 SARS-CoV-2 (COVID-19) RNA NOLA+probe Ql (Unsp spec) Not detected Normal NOT DETECTED [facility] Comment on above: Result Comment: This test is not yet approved or cleared by the [place] FDA. When there are no FDA-approved or cleared tests available, and other criteria are met, FDA can make tests available under an emergency access mechanism called an Emergency Use Authorization (EUA). The EUA for this test is supported by the [place] of Health and Human Service's (HHS's) declaration [...] SARS-CoV-2. Performed By: #### C VDTBH #### [facility] [address] [place] [address] Dr. Soo Donnelly TYPE AND SCREENon 05-13-2022 TYPE AND SCREEN Negative Normal [facility] Comment on above: Performed By: #### B UN, CREA #### [facility] [address] [place] [address] Dr. Soo Donnelly PAP ACOG PANEL 2: 30 to 65on 05-07-2022 . . Normal [facility] Comment on above: Result Comment: Perf ormed at: WB Performed By: #### [id number] #### [facility] [address] [place] [address] Dr. Soo Donnelly Age Gdln ACOG Testing 30-[address] [facility] Comment on above: Performed By: #### [id number] #### [facility] [address] [place] [address] Dr. Soo Donnelly DIAGNOSIS: Comment Normal [facility] Comment on above: Result Comment: NEGA TIVE FOR INTRAEPITHELIAL LESION OR MALIGNANCY. Performed at: WB Performed By: #### [id number] #### [facility] [address] [place] [address] Dr. Soo Donnelly HPV Aptima Negative Normal Negative [facility] Comment on above: Result Comment: This nucleic acid amplification test detects fourteen high-risk HPV types (16,18,31,33,35,39,45,51,52,56,58,59,66,68) without differentiation. Performed at: =G Performed By: #### [id number] #### [facility] [address] [place] [address] Dr. Soo Donnelly Methodology: Comment Normal [facility] Comment on above: Result Comment: This liquid based ThinPrep(R) pap test was screened with the use of an image guided system. Performed at: WB Performed By: #### [id number] #### [facility] [address] [place] [address] Dr. Soo Donnelly Note: Comment Normal [facility] Comment on above: Result Comment: The Pap smear is a screening test designed to aid in the detection of premalignant and malignant conditions of the uterine cervix. It is not a diagnostic procedure and should not be used as the sole means of detecting cervical cancer. Both false-positive and false-negative reports do occur. . Performed at: WB Performed By: #### [id number] #### [facility] [address] [place] [address] Dr. Soo Donnelly Performed by: Comment Normal [facility] Comment on above: Result Comment: Angel Rod, Retail Administrative Assistant (ASCP) Performed at: WB Performed By: #### [id number] #### [facility] [address] [place] [address] Dr. Soo Donnelly Specimen adequacy: Comment Normal [facility] Comment on above: Result Comment: Sati sfactory for evaluation. Endocervical and/or squamous metaplastic cells (endocervical component) are present. Performed at: WB Performed By: #### [id number] #### [facility] [address] [place] [address] Dr. Soo Donnelly ROSS by IFAon 02-21-2022 Antinuclear Antibodies, IFA Negative [facility] Comment on above: Result Comment: Nega tive <1:80 Borderline 1:80 Positive >1:80 ICAP nomenclature: AC-0 For more information about Hep-2 cell patterns use ANApatterns.org, the official website for the International Consensus on Antinuclear Antibody (ROSS) Patterns (ICAP). Performed By: #### U GL, CRP #### [facility] [address] [place] [address] Dr. Soo Donnelly ROSS DIRECTon 02-20-2022 ROSS Direct Negative Normal Negative [facility] Comment on above: Performed By: #### A NAD #### [facility] [address] [place] [address] Dr. Soo Donnelly ANTISTREPTOLYSIN O AB (ASO)o n 02-20-2022 Antistreptolysin O Ab 115.3 IU/mL Normal 0.0-200.0 [facility] Comment on above: Performed By: #### B UN, CREA #### [facility] [address] [place] [address] Dr. Soo Donnelly C3 and C4 COMPLEMENTon 02-20 Complement C3, Serum 137 mg/dL Normal 82-[address] [facility] Comment on above: Performed By: #### U LG, CRP #### [facility] [address] [place] [address] Dr. Soo Donnelly Complement C4, Serum 23 mg/dL Normal 12-[address] [facility] Comment on above: Performed By: #### U LG, CRP #### [facility] [address] [place] [address] Dr. Soo Donnelly SLE PROFILE Aon 02-20-2022 Anti-DNA (DS) Ab Qn <1 Normal 0-9 [facility] Comment on above: Result Comment: Nega tive <5 Equivocal 5 - 9 Positive >9 Performed By: #### S YARI #### [facility] [address] [place] [address] Dr. Soo Donnelly Antichromatin Antibodies <0.2 Normal 0.0-0.[address] [facility] Comment on above: Performed By: #### S YARI #### [facility] [address] [place] [address] Dr. Soo Donnelly RA Latex Turbid. <10.0 Normal <14.0 [facility] Comment on above: Performed By: #### S YARI #### [facility] [address] [place] [address] Dr. Soo Donnelly SYSTEMS DESIGNER Antibodies <0.2 Normal 0.0-0.9 [facility] Comment on above: Performed By: #### S YARI #### [facility] [address] [address] [address] Soo Donnelly Sjogren'neel Anti-SS-A <0.2 Normal 0.0-0.9 [facility] Comment on above: Performed By: #### S YARI #### [facility] [address] [address] [address] Soo Donnelly Sjogren's Anti-SS-B <0.2 Normal 0.0-0.9 [facility] Comment on above: Performed By: #### S YARI #### [facility] [address] [address] [address] Soo Donnelly Spann Antibodies <0.2 Normal 0.0-0.9 [facility] Comment on above: Performed By: #### S YARI #### [facility] [address] [place] [address] Dr. Soo Donnelly CRPon 02-19-2022 CRP [Mass/Vol] mg/L Normal <=1.0 [facility] Comment on above: Performed By: #### U LG, CRP #### [facility] [address] [place] [address] Dr. Soo Donnelly URIC ACID SERUMon 02-19-2022 Urate [Mass/Vol] 4.7 mg/dL Normal 2.5-6.2 [facility] Comment on above: Performed By: #### U LG, CRP #### [facility] [address] [place] [address] Dr. Soo Donnelly XR CSPINE MIN 4 [...] ABIGAIL SHEEHAN Date: 2022-02-19 16:33 Normal [facility] XR HAND DEAN MIN 3Von 022 [...] ABIGAIL SHEEHAN Date: 2022-02-19 16:28 Normal [facility] ASYMPTOMATIC COVID-19 ANTIGE Non 12-04-2021 EUA Statement SEE BELOW Normal [facility] Comment on above: Result Comment: [...] sooner. Performed By: #### C VDAGA #### [facility] [address] [place] [address] Dr. Soo Donnelly SARS-CoV-2 (COVID-19) RNA NOLA+probe Ql (Unsp spec) Negative Normal NEGATIVE [facility] Comment on above: Result Comment: Nega tive results are presumptive. They do not preclude infection and should not be used as the sole basis for treatment decisions. Additional confirmatory testing by a molecular method should be considered. Performed By: #### C VDAGA #### [facility] [address] [place], [place] [address] Dr. Soo Donnelly Covid-19 PCR ([facility])on SARS-CoV-2 (COVID-19) RNA NOLA+probe Ql (Unsp spec) Not detected Normal NOT DETECTED [facility] Comment on above: Result Comment: This test is not yet approved or cleared by the [place] FDA. When there are no FDA-approved or cleared tests available, and other criteria are met, FDA can make tests available under an emergency access mechanism called an Emergency Use Authorization (EUA). The EUA for this test is supported by the [place] of Health and Human Service's (HHS's) declaration [...] Performed By: #### U LG, CRP #### [facility] [address] [place], [place] [address] Dr. Soo Donnelly Vital Signs Date Time Vital Sign Value Performing Clinician Facility 10-13-2024 14:20-0500 Body height 170.2 cm Becca Ashley APRNModern Boutique Work Phone: [facility] 10-13-2024 14:20-050 Body mass index (BMI) [Ratio] 28.51 kg/m2 Becca Ashley APRN-REINSURANCE ACCOUNTANT Work Phone: [facility] 10-13-2024 14:20-0500 Body weight 82.56 kg Becca Ashley APRN-REINSURANCE ACCOUNTANT Work Phone: [facility] 11-01-2022 15:19-0500 Blood Pressure Location Nicola BUCHANAN [facility] [place] 11-01-2022 15:19-0500 Diastolic blood pressure 80 mm[Hg] Nicola BUCHANAN [facility] [place] 11-01-2022 15:19-0500 Heart rate 72 /min Nicola CANDELARIOL [facility] [place] 11-01-2022 15:19-0500 Respiratory rate 16 /min Nicola CANDELARIOL [facility] [place] 11-01-2022 15:19-0500 Systolic blood pressure 118 mm[Hg] Nicola CANDELARIOL [facility] [place] 10-01-2022 16:30-0400 Body height 170.18 cm Clarice Scally Other [facility] 10-01-2022 16:30-0400 Body mass index (BMI) [Ratio] 32.84 kg/m2 Clarice Scally Other [facility] 10-01-2022 16:30-0400 Body weight 95.12 kg Clarice Scally Other [facility] 10-01-2022 16:30-0400 Diastolic blood pressure 82 mm[Hg] Clarice Scally Other [facility] 10-01-2022 16:30-0400 Respiratory rate 18 /min Clarice Scally Other [facility] 10-01-2022 16:30-0400 SaO2% (BldA) [Mass fraction] 97 % Clarice Scally Other [facility] 10-01-2022 16:30-0400 Systolic blood pressure 116 mm[Hg] Clarice Scally Other [facility] 08-28-2022 14:30-0400 Body height 170.18 cm Nahid Elisediff Other [facility] 08-28-2022 14:30-0400 Body mass index (BMI) [Ratio] 34.55 kg/m2 Nahid Elisediff Other [facility] Other 08-28-2022 14:30-0400 Body weight 100.06 kg Nahid Elisediff Other [facility] Other 08-28-2022 14:30-0400 Diastolic blood pressure 82 mm[Hg] Nahid Elisediff Other [facility] Other 08-28-2022 14:30-0400 Respiratory rate 18 /min Nahid Elisediff Other [facility] 08-28-2022 14:30-0400 SaO2% (BldA) [Mass fraction] 97 % Nahid Elisediff Other [facility] Other 08-28-2022 14:30-0400 Systolic blood pressure 121 mm[Hg] Nahid Elisediff Other [facility] Other Encounters Encounter Date Encounter Type Care Provider Facility Start: 11-01-2024 ambulatory Vinayak Loredo lity:[facility] Start: 10-14-2024 ambulatory Vinayak Baltazar Facilit y:[facility] Start: 10-13-2024 End: 10-13-2024 Office outpatient new 30 minutes Becca Ashley LINUX SYSTEM ENGINEER-REINSURANCE ACCOUNTANT Work Phone: [facility] Comment on above: Positive fecal occul t blood test (Primary Dx); Rectal bleeding; Gastroesophageal reflux disease, unspecified whether esophagitis present Start: 10-13-2024 End: 10-13-2024 ambulatory [facility] Start: 10-04-2024 End: 10-04-2024 ambulatory Hebert Jara MD Facility:[facility] Start: 09-27-2024 End: 09-27-2024 ambulatory DELGADO LIDIA Not Available Start: 09-27-2024 End: 09-27-2024 Bamboo flowsheet Edlgado Lidia DO Work Phone: [facility] Start: 09-27-2024 End: 09-27-2024 Bamboo flowsheet Delgado Lidia DO Work Phone: [facility] Start: 09-20-2024 End: 09-20-2024 ambulatory Hebert Jara MD Facility:[facility] Start: 09-09-2024 End: 09-09-2024 ambulatory Carol [...] PT Start: 08-30-2024 End: 08-30-2024 Departed Referred [facility] [address] Work Phone: Start: 08-30-2024 End: 08-30-2024 ambulatory NON STAFF [facility] Work Phone: Start: 04-05-2024 End: 04-05-2024 ambulatory DELGADO LIDIA Not Available Start: 03-15-2024 End: 03-15-2024 Emergency department patient visit Nicola Neff Facility:[facility] Start: 10-22-2023 End: 10-22-2023 ambulatory JESSICA SANCHEZ Not Available Start: 08-15-2023 End: 08-15-2023 ambulatory NON STAFF [facility] Work Phone: Start: 08-15-2023 End: 08-15-2023 Departed [facility] [address] Work Phone: Start: 12-05-[address] SAMI MARINELLI Facility :[facility] Start: 11-09-2022 End: 11-10-[address] DOCTOR STEIN Facility:[facility] Start: 11-01-2022 End: 11-01-2022 Patient encounter procedure Nicola BUCHANAN General Surgery [facility] Start: 10-29-2022 End: 10-29-2022 ambulatory Clarice Hull Other [facility] Other Start: 10-29-2022 Telephone encounter [facility] Start: 10-14-2022 End: 10-14-2022 ambulatory Clarice Hull Other [facility] Other Start: 10-14-2022 Telephone encounter Clarice [facility] Start: 10-01-2022 ([id number]) Weight Management f/u Clarice Hull [facility] Start: 10-01-2022 End: 10-02-[address] LUZ ELENA SAUCEDA [facility] Other Start: 09-19-2022 End: 09-19-2022 ambulatory Nahid Mccoy Other [facility] Other Start: 09-19-2022 Telephone encounter Nahid [facility] Start: 09-18-2022 End: 09-18-[address] LUZ ELENA SAUCEDA Facility:[facility] Start: 09-12-2022 End: 09-13-[address] ABIGAIL SHEEHAN Facility:[facility] Start: 08-28-2022 End: 08-28-2022 ambulatory Nahid Mccoy Other [facility] Other Start: 08-28-2022 Nutrition therapy Nahid Mccoy [facility] Start: 07-22-2022 Encounter for genera l adult medical examination without abnormal findings DR SAMI MARINELLI [facility] Start: 07-19-2022 End: 07-20-[address] [...] for preprocedural laboratory examination DR DELGADO MURILLO [facility] Start: 05-13-2022 End: 05-14-[address] DELGADO MURILLO Facility:[facility] Start: 05-13-2022 End: 05-14-2022 Encounter for preprocedural laboratory examination DR DELGADO MURILLO Facility:[facility] Start: 05-11-2022 Encounter for preprocedural cardiovascular examination DR DELGADO MURILLO [facility] Start: 05-08-2022 End: 05-09-[address] SAMI MARINELLI Facility:[facility] Start: 05-08-2022 End: 05-09-2022 Encounter for preprocedural cardiovascular examination DR SAMI MARINELLI Facility:[facility] Start: 05-02-2022 End: 05-02-[address] DELGADO MURILLO Facility:[facility] Start: 02-19-2022 End: 02-20-[address] SAMI MARINELLI Facility:[facility] Start: 12-04-2021 End: 12-04-[address] SAMI MARINELLI Facility:[facility] Procedures Date Procedure Procedure Detail Performing Clinician Start: 11-27-2023 Mammography Carolflavia lundy PT Work Phone: Start: 10-23-2023 Microscopic [...] Activity Detail Author Start: 05-28-2031 Screening for malignant neoplasm of colon [facility] Start: 10-23-2028 Screening for malignant neoplasm of cervix [facility] Start: 10-23-2026 Screening for malignant neoplasm of cervix Pap Smear [facility] Start: 05-28-2026 Screening for malignant neoplasm of colon Colonoscopy [facility] Start: 10-13-2025 Adult BMI Screening Adult BMI Screening [facility] Start: 10-13-2025 Tobacco Screening Tobacco Screening [facility] Start: 11-27-2024 Screening for malignant neoplasm of breast Mammogram [facility] Start: 11-22-2024 End: 11-22-2024 Patient encounter procedure 11/22/2024 1:00 PM EST Off ice Visit [facility] [address] [place] [id number] Delgado Murillo, DO [address], [place] [address] [facility] Start: 10-27-2024 End: 10-27-2024 Admission to same day surgery center 10/27/2024 11:00 AM EST - 10/27/2024 11:45 AM EST Surgery [facility] [address] [place] [phone] Cande Li MD [address] [place] [phone] ESOPHAGOGASTRODUODENOSCOPY DIAGNOSTIC [33574 (CPT )] [facility] Comment on above: ESOPHAGOGASTRODUODENOSCOPY DIAGNOSTIC [4 9034 (CPT )] Start: 10-27-2024 End: 10-27-2024 Colonoscopy flx dx w/collj spec when pfrmd COLONOSCOPY DIAGNOSTIC / SCREENING positive fecal occult blood 10/27/2024 11:00 AM EST [facility] Start: 10-27-2024 End: 10-27-2024 Esophagogastroduodenoscopy transoral diagnostic ESOPHAGOGASTRODUODENOSCOPY DIAGNOSTIC positive fecal occult blood 10/27/2024 11:00 AM EST [facility] Start: 10-27-2024 Subsequent hospital visit by physician 10/27/2024 11:00 AM EST Hospital Encounter [facility] [address] [place] [id number] Cande Li MD [address] [facility] [phone] [facility] Start: 10-26-2024 End: 10-26-2024 Patient encounter procedure 10/26/2024 1:45 PM EST Off ice Visit [facility] [address] [place] [phone] Becca Ashley, LINUX SYSTEM ENGINEER-[facility] [address] [place], [place] [id number] [facility] Start: 10-20-2024 End: 10-20-2024 ambulatory 10/20/2024 4:20 PM EST Suppo rt Visit [facility] - Pre Admit [address] [place] [phone] [facility] Start: 09-27-2024 End: 09-27-2024 Patient encounter procedure 09/27/2024 3:10 PM EDT Off ice Visit [facility] [address] [place] [address] Delgado Murillo DO [address] [place] [address] Arrived [facility] Comment on above: Arrived Start: 09-09-2024 End: 09-09-2024 ambulatory 09/09/2024 4:00 PM EDT Evaluation [facility] [address] [place] [address] Carol Webb, PT [address] [place] [address] Arrived [facility] Comment on above: Arrived Start: 08-01-2024 COVID-19 Vaccine () COVID-19 Vaccine () [facility] Start: 08-01-2024 Influenza vaccination [facility] Start: 1995 DTaP,Tdap and Td Vaccines (1 - Tdap) DTaP,Tdap and Td Vaccines ( - Tdap) [facility] Start: 1994 Adult BMI Follow Up Plan Adult BMI Follow Up Plan [facility] Start: 1988 Depression Screening Depression Screening [facility] Start: 1976 Screening for malignant neoplasm of colon [facility] Start: 1976 Tobacco Counseling Tobacco Counseling [facility] End: 10-13-2025 EGD / Colonoscopy EGD / Colonoscopy GI Routine Positive fecal occult blood test 1 Occurrences starting 10/13/2024 until 10/13/2025 [facility] Work Phone: Comment on above: 1 Occurrences starting 10/13/2024 until 10/13/2025 Immunizations Immunization Date Immunization Notes Care Provider Ramila narvaez 10-02-2004 influenza virus vaccine, unspecified formulation Becca Ashley LINUX SYSTEM ENGINEER-REINSURANCE ACCOUNTANT Work Phone: [facility] NEGATED: Highlighted row has not occurred!11-01-2022 influenza virus vaccine, unspecified formulation Nicola BUCHANAN General Surgery [facility] Payers Date Payer Category Payer Self-pay [id number] 2023 Private Health Insurance [employer] [id number] 2023 Unknown [id number] [id number]. [id number] 2014 Commercial [facility] [employer] [id number]. [id number] 1976 Unknown [id number] 2.840.1.839268.3.579.2 1976 Unknown [id number] 2.840.1.826269.3.579.2 1976 Unknown [id number] 2.840.1.717636.3.579.2 1976 Unknown [id number] 2.840.1.518926.3.579.2 1976 Unknown [id number] 2.840.1.148350.3.579.2 1976 Unknown [id number] 2.16840.1.514784.3.579.2. 1976 Unknown [id number] 2.16840.1.230692.3.579.2. 1976 Unknown [id number] 2.16.840.1.149753.3.579.2. 593 1976 Unknown [id number] 2.16.840.1.056132.3.579.2. 593 1976 Unknown [id number] 2.16.840.1.180805.3.579.2. 593 1976 Unknown [id number] 2.16.840.1.954506.3.579.2. 593 1976 Unknown [id number] 2.16.840.1.293751.3.579.2. 593 1976 Unknown [id number] 2.16.840.1.054746.3.579.2. 593 1976 Unknown [id number] 2.16.840.1.081074.3.579.2. 593 1976 Unknown [id number] 2.16.840.1.512453.3.579.2. 718 1976 Unknown [id number] 2.16.840.1.392115.3.579.2. 1259 1976 Unknown [id number] 2.16.840.1.706918.3.579.2. 1259 1976 Unknown [id number] 2.16.840.1.186619.3.579.2. 1259 1976 Unknown [id number] 2.16.840.1.367135.3.579.2. 1259 1976 Unknown [id number] 2.16.840.1.468169.3.579.2. 196 1976 Unknown [id number] 2.16.840.1.123129.3.579.2. 196 1976 Unknown [id number] 2.16.840.1.796919.3.579.2. 1286 1976 Unknown [id number] 2.16.840.1.912020.3.579.2. 727 1959 Self-pay [id number] 1959 Unknown [id number] 2.16.840.1.704001.19 Unknown [id number] 2.16.840.1.252470.3.579.2. 531 Social History Date Type Detail Facility Unknown if ever smoked [facility] Other Start: 01-11-2021 End: 10-20-2023 Sex Assigned At [place] Start: 11-01-2022 Tobacco smoking status Ex-smoker (finding) [facility] Tobacco smoking status Former sm okeless tobacco user, quit more than 30 days ago [facility] Start: 1975 [address] Assigned [address] Female [facility] Start: 06-25-2023 Tobacco smoking status CTIS Smokes tobacco daily [facility] History of tobacco use Cigarette Smoker [facility] Start: 04-05-2024 Alcoholic beverage intake Current drinker of alcohol (finding) [facility] Start: 01-11-2021 End: 10-20-2023 History of Social function [facility] [...] 1975 Sex assigned at Not on file [facility] Start: 10-13-2024 Tobacco smoking status [facility] Occasional tobacco smoker [facility] History of tobacco use Tobacco U se Types Packs/Day Years Used Date Smoking Tobacco: Some Days Cigarettes Vaping/E-cigarettes Smokeless Tobacco: Never [facility] Start: 10-13-2024 Tobacco use and exposure Smokeless tobacco non-user [facility] Start: 10-13-2024 Alcoholic beverage intake Current non-drinker of alcohol (finding) [facility] Start: 07-06-2015 Sex Female (finding) [facility] Start: 12-06-2022 Gender identity Identifies as female gender (finding) [facility] Start: 12-06-2022 Sexual orientation Homosexual (finding) [facility] Functional Status Date Assessment Result Facility 11-01-2022 Functional Status N/A [facility] Clinical Notes 05-16-2022 to 10-13-2024 Becca Rodrigues Ashley, LINUX SYSTEM ENGINEER-REINSURANCE ACCOUNTANT - 10/13/2024 2:30 PM Wolf Webb, PT - 09/09/2024 4:00 PM EDT Note Date & Type Note Facility 10-13-2024 History of Present illness Narrative Images from the original note were not included. Chief Complaint: Positive fecal occult blood History of Present Illness Horacio Keating is a 49 y.o. female who presents to the office for positive fecal occult blood. She states she has hemorrhoids that bleed. She denies black, tarry stools. She also reports constipation since being on Ozempic. She states she will constipated and not have a bowel movement for 3 days. This will be followed by diarrhea. She also reports horrible heartburn and acid reflux despite taking omeprazole 40 mg twice daily. She has to take Tums on top of this. She does not drink an increased amount of caffeine or smoke regularly. Her last EGD and colonoscopy were in [address] Gee. EGD revealed gastritis. Colonoscopy revealed 1 hyperplastic polyp in the sigmoid colon. Review of Systems Constitutional: Negative for fever and unexpected weight change. HENT: Negative for trouble swallowing. Respiratory: Negative for shortness of breath. Cardiovascular: Negative for chest pain. Gastrointestinal: Positive for nausea, diarrhea, constipation and blood in stool. Negative for vomiting, abdominal pain and black tarry stool. Heartburn Genitourinary: Negative for dysuria and difficulty urinating. Musculoskeletal: Negative for gait problem. Skin: Negative for rash and wound. Neurological: Negative for dizziness, weakness and light-headedness. Hematological: Does not bruise/bleed easily. Psychiatric/Behavioral: Negative for confusion. Past Medical History: Diagnosis Date Arthritis Controlled narcolepsy 2023 Hemorrhoids High cholesterol Hypertension IBS (irritable bowel syndrome) PONV (postoperative nausea and vomiting) Pre-diabetes Sleep apnea Past Surgical History: Procedure Laterality Date SECTION COLONOSCOPY COLONOSCOPY N/A 05/28/2021 Performed by Nicola Gee DO at [facility] COLONOSCOPY N/A 05/04/2018 Performed by Nicola Gee DO at [facility] CYST REMOVAL from uterus and ovaries x 5 EGD N/A 05/04/2018 Performed by Nicola Gee DO at [facility] ESOPHAGOGASTRODUODENOSCOPY N/A 05/28/2021 Performed by Nicola Gee DO at [facility] KNEE ARTHROSCOPY Left KNEE ARTHROSCOPY Right LAPAROSCOPIC CHOLECYSTECTOMY LIPOMA RESECTION on leg and stomach TEMPOROMANDIBULAR JOINT SURGERY 1994 TUBAL LIGATION Allergies Allergen Reactions Macrobid [Nitrofurantoin Monohyd/M-Cryst] Swelling Other Current Outpatient Medications: acidophilus-pectin, citrus 25 million cell -100 mg tablet, Take 1 tablet by mouth in the morning and 1 tablet at noon and 1 tablet in the evening. Take with meals., Disp: , Rfl: ALPRAZolam (XANAX) 0.25 mg tablet, Take 1 tablet (0.25 mg total) by mouth nightly as needed for anxiety., Disp: , Rfl: amphetamine-dextroamphetamine XR (ADDERALL XR) 30 mg 24 hr capsule, Take 1 capsule (30 mg total) by mouth every morning. Max Daily Amount: 30 mg, Disp: , Rfl: aspirin 325 mg EC tablet, Take 1 tablet (325 mg total) by mouth in the morning., Disp: , Rfl: celecoxib (CeleBREX) 100 mg capsule, Take 1 capsule (100 mg total) by mouth in the morning and 1 capsule (100 mg total) before bedtime., Disp: , Rfl: docusate sodium (COLACE) 50 mg capsule, Take 1 capsule (50 mg total) by mouth in the morning and 1 capsule (50 mg total) before bedtime., Disp: , Rfl: estradioL (ESTRACE) 0.5 mg tablet, Take 1 tablet (0.5 mg total) by mouth in the morning., Disp: , Rfl: lamoTRIgine (LaMICtal) 25 mg tablet, Take 1 tablet (25 mg total) by mouth in the morning., Disp: , Rfl: lisinopriL (PRINIVIL,ZESTRIL) 20 mg tablet, Take 1 tablet (20 mg total) by mouth in the morning., Disp: , Rfl: meloxicam (MOBIC) 7.5 mg tablet, Take 1 tablet (7.5 mg total) by mouth in the morning., Disp: , Rfl: metoprolol tartrate (LOPRESSOR) 100 mg tablet, Take 75 mg by mouth in the morning and 75 mg before bedtime., Disp: , Rfl: omeprazole (PriLOSEC) 40 mg capsule, Take 1 capsule (40 mg total) by mouth in the morning and 1 capsule (40 mg total) before bedtime., Disp: , Rfl: polycarbophil (FIBERCON) 625 mg tablet, Take 1 tablet (625 mg total) by mouth in the morning., Disp: , Rfl: semaglutide (OZEMPIC) 0.25 mg or 0.5 mg(2 mg/1.5 mL) pen injector, Inject 0.6 mg under the skin every 7 days., Disp: , Rfl: tiZANidine (ZANAFLEX) 4 mg tablet, Take 1 tablet (4 mg total) by mouth every 6 (six) hours as needed for muscle spasms., Disp: , Rfl: peg 3350-sod sulf,[id number]-hnn 178.7-7.3-0.5 gram recon soln, Take 1 kit by mouth once daily for 1 dose. Please see instructional sheet given by physicians office., Disp: 1 each, Rfl: 0 Social History Socioeconomic History Marital status: Spouse name: Not on file Number of children: Not on file Years of education: Not on file Highest education level: Not on file Occupational History Not on file Tobacco Use Smoking status: Some Days Current packs/day: 0.25 Types: Vaping/E-cigarettes , Cigarettes Smokeless tobacco: Never Substance and Sexual Activity Alcohol use: No Drug use: No Sexual activity: Defer Other Topics Concern Not on file Social History Narrative Not on file Social Drivers of Health Financial Resource Strain: Not on file Food Insecurity: Not on file Transportation Needs: Not on file Physical Activity: Not on file Stress: Not on file Social Connections: Not on file Interpersonal Safety: Not on file Housing Instability: Not on file Family History Problem Relation Age of Onset Hypothyroidism Mother Diabetes Father Kidney disease Father Objective Physical Exam Constitutional: General: She is not in acute distress. Appearance: Normal appearance. She is not ill-appearing. HENT: Head: Normocephalic and atraumatic. Mouth/Throat: Mouth: Mucous membranes are moist. Eyes: Pupils: Pupils are equal, round, and reactive to light. Cardiovascular: Rate and Rhythm: Normal rate. Pulmonary: Effort: Pulmonary effort is normal. No respiratory distress. Abdominal: General: There is no distension. Musculoskeletal: General: Normal range of motion. Skin: General: Skin is warm and dry. Neurological: Mental Status: She is alert and oriented to person, place, and time. Mental status is at baseline. Vital Signs: Height 170.2 cm (5' 7 ), weight 82.6 kg (182 lb). Respiratory Source: No data recorded Admission Weight: Weight: 82.6 kg (182 lb) Labs No results found for: WBC , HGB , HCT , MCV , PLT No results found for: GLU , CALCIUM , NA , K , CO2 , CL , BUN , CREATININE No results found for: AMYLASE No results found for: LIPASE No results found for: ALT , AST , GGT , ALKPHOS , LABBILI No results found for: INR , PROTIME Imaging Colonoscopy 05/28/2021: Findings: The perianal and digital rectal examinations were normal. A 4 mm polyp was found in the sigmoid colon. The polyp was sessile. The polyp was removed with a hot snare. Resection and retrieval were complete. A single small-mouthed diverticulum was found in the sigmoid colon. The exam was otherwise without abnormality on direct and retroflexion views. Estimated Blood Loss: Estimated blood loss: none. Impression: - One 4 mm polyp in the sigmoid colon, removed with a hot snare. Resected and retrieved. - Diverticulosis in the sigmoid colon. - The examination was otherwise normal on direct and retroflexion views. Sigmoid colon polyp, biopsy: Hyperplastic polyp. Assessment Positive fecal occult blood GERD despite adequate PPI therapy Rectal bleeding Plan EGD and colonoscopy with possible biopsy and/or polypectomy. Risks, benefits, and alternatives discussed with patient. Educated on bowel evacuation preparation. Patient verbalizes understanding and wishes to proceed. Evaluation included: Preparing to see the patient (e.g., review of tests) Obtaining and/or reviewing separately obtained history Performing a medically appropriate examination and/or evaluation Counseling and educating the patient/family/caregiver Referring and communicating with other health primary health care nurse Positive fecal occult blood test [R19.5] BECCA ASHLEY, LINUX SYSTEM ENGINEER-REINSURANCE ACCOUNTANT [facility] [place] This note was created with the assistance of a speech recognition program. While intending to generate a timely document that accurately reflects the content of the visit, no guarantee can be provided that every grammatical or spelling mistake has been or will be identified or corrected. Thank you for your understanding. MAYRA Barrett 10/13/24 1513 documented in this encounter [facility] 09-09-2024 History of Present illness Narrative Images [...] No resulting surgeries. 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 Also notes poor balance with no diagnosed [...] sign below. Date: documented in this encounter [facility] 03-15-2024 Note Education Materials [...] Keep all follow-up visits. Medicines ? Take [id number] and prescription medicines only as told by [...] harder to (more content not included)... [facility] 10-01-2022 Evaluation note Encounter Date Diagnosis Assessment [...] was counseling done by myself, Ann ANGLIN. [facility] Other 09-28-2022 Evaluation note* Encounter Date Diagnosis Assessment Notes Treatment Notes Treatment Clinical Notes Aug, Abnormal weight gain (ICD-10 - R63.5) Aug, Prediabetes (ICD-10 - R73.03) Aug, Mixed hyperlipidemia (ICD-10 - E78.2) Aug, Hypertension (ICD-10 - I10) Aug, Obstructive sleep apnea (ICD-10 - G47.33) Aug, GERD (gastroesophageal reflux disease) (ICD-10 - K21.9) Aug, Metabolic syndrome X (ICD-10 - E88.81) [facility] Other 06-16-2022 NoteDISCHARGE SUMMARY DISCHARGE DATE: 05/18/2022 [...] pain free and no longer on narcotics. [facility] Signed and Approved by: DR DELGADO MURILLO . 05/20/2022 07:51:00[id number] NoteThe [place], [place] NAME: HORACIO PUGH DATE OF : MEDICAL REC#: [id number] MOLDING MACHINE SETTER: Luis LEE [facility] ADMIT DATE: 05/16/2022 11:05:00 HIGHER LEVEL TEACHING ASSISTANT DATE: 05/17/2022 21:20 DICTATING PHYSICIAN: DELGADO MURILLO DICTATION DATE: 05/16/2022 15:02 OP Note OPERATION DATE: 05/16/2022 PROCEDURE: Supracervical hysterectomy with left salpingo-oophorectomy with right salpingectomy and right ovarian cystotomy of approximately 3 cm cyst. SURGEON: Delgado Murillo D.O. COLLECTIONS OFFICER: SHUKRI Bailon URINE OUTPUT: Yellow and clear. [...] Approved by: DR DELGADO MURILLO . 05/23/2022 10:30:00[facility] HospitalEvaluation + Plan note No data available for this section General Surgery [place] Evaluation noteNo InformationNort GonnaBe Other Evaluation noteNo assessment information available [facility] Work Phone: Evaluation note* Diagnosis Neck pain- Primary Cervicalgia Chronic bilateral low back pain with bilateral sciatica [facility] Diagnosis Positive fecal occult blood test- Primary Rectal bleeding Hemorrhage of rectum and anus Gastroesophageal reflux disease, unspecified whether esophagitis present [facility] - [facility]* Type Description Date [...] History TMJ surgery Hospitalization History see above [facility] Other History general Narrative - Reported* Type [...] ER[facility]abd . [facility] Hospital Discharge instructions No data available for this section General Surgery [facility] InstructionsNot on filedocumented in this encounter [facility] No data available for this section General Surgery [place] Summary Purpose Family History No Family History [...] for Visit Chief Complaint WELLNESS Chief Complaint [facility] labs Additional Source Comments REASON FOR VISIT (unrecogniz ed section and content) Specialty Diagnoses / Procedures Referred By Contac t Referred To Contact Physical Therapy Diagnoses Other spondylosis, lumbar region Procedures MO PHYS THERAPY EVALUATION Edwige Magaña MD [facility] [place] [address] Carol Webb, PT [address] [place] [address] Referral ID Status Reason Start Date Expiration Date V isits Requested Visits Authorized [id number] Authorized 09/02/2024 03/01/2025 40 40 Reason Comments POSITIVE OCCULT TEST POSITIVE OCCULT STO OL, REF BY DR. MARINELLI Patient Care team informatio n (unrecognized section and content) Team Status: Active Member Role Status Dates NON STAFF Primary Care Provider Active Team Status: Inactive Member Role Status Dates NON STAFF Primary Care Provider Active Dedrick Fuller DO PSYCHIATRIC Attending Provider Active Team Status: Inactive Member Role Status Dates NON STAFF Primary Care Provider Active Start: August 30, 2024 End: August 30, 2024 Dedrick Rangel PSYCHIATRIC DO PSYCHIATRIC Attending Provider Active Start: August 30, 2024 End: August 30, 2024 Pet Feeder Relationship Specialty Start Date End Date Sami Marinelli MD [address] [place] [address] PCP - General Family Medicine 06/26/23 Pet Feeder Relationship Specialty Start Date End Date Sami Marinelli MD [address] [place] [address] PCP - General Family Medicine 06/26/23 Pet Feeder Relationship Specialty Start Date End Date Sami Marinelli MD PCP - General 05/04/18 INFORMATION SOURCE (unrecogn ized section and content) DATE CREATED AUTHOR 12/03/2022 [facility] DATE CREATED AUTHOR AUTHOR'S ORGANIZ ATION 03/21/2024 [facility] DATE CREATED AUTHOR AUTHOR'S ORGANIZ ATION 08/31/2024 [facility] DATE CREATED AUTHOR AUTHOR'S ORGANIZ ATION 09/28/2024 [facility] DATE CREATED AUTHOR AUTHOR'S ORGANIZ ATION 10/09/2024 [facility] DATE CREATED AUTHOR AUTHOR'S ORGANIZ ATION 10/15/2024 [facility] DATE CREATED AUTHOR AUTHOR'S ORGANIZ ATION 10/17/2024 [facility] Goals (unrecognized section and content) Goals may [...] BE BASED ON THE PRIMARY CLINICAL RECORDS. [facility]. provides no warranty or guarantee of the accuracy or completeness of information in this document.
[2024-10-18 07:02] VITALS: BP 104/73; PULSE 89; TEMP 36.2; O2SAT 100
[2024-10-18 07:14] LABS: Glucometer 94 mg/dL (74-106)
[2024-10-18 07:57] VITALS: BP 96/58; PULSE 78; O2SAT 97
[2024-10-18] MEDS: BUPIVACAINE HCL 0.25% PF 25 MG/10 ML VIAL INJ (07:59)
[2024-10-18] MEDS: LIDOCAINE HCL 2% 400 MG/20 ML MDV 15 ML INJ (07:59)
[2024-10-18 08:03] VITALS: BP 90/56; PULSE 73; O2SAT 97
--- NOTE | 2024-10-18 08:03 | W.PM.PROCNOT ---
Date of procedure: 10/18/24 Pre-op diagnosis: Pain due to cervical spondylosis Post-op diagnosis: same as pre-op Procedure: Procedure: Bilateral C4-5, 5-6 medial branch block Medications: Bupivacaine 0.25% 6cc The patient was seen and examined in the preoperative holding area.? The informed consent was obtained and placed on the chart.? The patient was brought to the medical procedure unit and placed in the prone position.? A timeout was completed verifying correct patient, procedure site, positioning, plan, and special equipment.? Using aseptic technique, the needle was placed at left C4.? Under direct fluoroscopic visualization, a Quincke tip needle was advanced to the midpoint of the waist of the articular pillar at the respective medial branch segment. The above-mentioned injectate was placed in a 1 mL aliquot proceeded by negative aspiration.? The needle was removed.? The procedure was completed at all left C5, 6. The same procedure, at the same levels, was then completed on the right side. Insertion site was covered.? Patient was taken to the postprocedural recovery area and monitored for an appropriate length of time before found suitable for discharge in the accompaniment of a responsible adult. Anesthesia: Local Surgeon: Hebert Jara Pathology: none sent Condition: stable Disposition: no change
== END 2024-10-18 08:06 | disposition home or self-care (01) ==
LOC: SURGOUT 06:59
PROVIDERS: PCP Family Medicine; Visit Provider Anesthesiology
DX: M47.812 Spondylosis without myelopathy or radiculopathy, cervical region (principal)
CPT/HCPCS: 36415; 64490; 64491; J0665

== ENCOUNTER 2024-10-20 15:29 | Outpatient (OUT) | payer OTHER, SELFPAY ==
--- OUTSIDE RECORDS SUMMARY | 2024-10-20 15:35 | XMS_ITS | CCD ---
Author Organization [facility] Care Team Providers Care Mechanical Engineering Director Name Role Phone Nahid Mccoy Unavailable AldoClarice [...] STAFF Primary Care Provider Unavailsalome Fuller [facility] Attending Provider [facility] Attending Unavailable [facility] Admitting Unavailable NON STAFF Primary Care Unavailable Sami Marinelli MD Primary Care Provider [phone] JESSICA SANCHEZ Attending Unavailable DELGADO MURILLO Attending Unavailable CAROL WEBB Attending Unavailable EDWIGE MAGAÑA F Referring Unavailable DELGADO MURILLO Attending Unavailable Marek BURK, Hebert Rock Attending Unavailable Marek BURK, Hebert Rock Attending Unavailable Sami Marinelli MD Primary Care Provider [phone] BECCA ASHLEY Attending Unavailable SAMI MARINELLI Referring Unavailable SAMI MARINELLI Primary Care Unavailable Vinayak Baltazar Attending Unavailable Allergies Allergy Classification Reported Allergen(s) Allergy Type Date of Onset Reaction(s) Facility (8 sources) NITROFURANTOIN, MACROCRYSTALS / Nitrofurantoin, Monohydrate; 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: [nitrofurantoin] Drug Allergy 05-01-20 18 Neck swelling (finding), Swelling [facility] (1 source) Albuterol Drug Allergy [facility] Comment on above: NEED TO CUT DOWN ADR ENALIN TO PREVENT SEIZURES (2 sources) Bee/Wasp/Ant venom; 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: [Bee Stings] Allergy to substance Nausea, Swelling [facility] (1 source) PECANS 1 Food allergy [facility] Comment on above: AIRWAY CONSTRICTION (2 sources) bee venom Drug allergy (disorder) 06-09-20 15 [facility] (2 sources) egg extract Drug Allergy 06-09-20 15 [facility] (4 sources) Nitrofurantoin; 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: [Macrobid] Drug Allergy 05-02-20 12 [facility] (2 sources) pecan pollen extract Drug Allergy [facility] (2 sources) tree nut, unspecified Drug allergy (disorder) 06-09-20 15 [facility] (5 sources) Albuterol; 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: [albuterol] Drug Allergy 06-26-20 23 [facility] Repository (1 source) Nitrofurantoin Drug Allergy 10-01-20 22 [facility] Repository (3 sources) Honey bee venom Allergy to substance 04-05-20 24 [facility] Healthcare (3 sources) Nitrofurantoin Drug Allergy 05-01-20 18 Swelling [facility] (3 sources) Nitrofurantoin Drug Allergy 04-05-20 24 [facility] (3 sources) Egg-Derived Products Drug Allergy 04-05-20 24 [facility] (5 sources) Other; 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: [OTHER] Propensity to adverse reactions 05-13-20 05 [facility] Healthcare (1 source) NITROFURANTOIN MONOHYD/M-CRYST; 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: [NITROFURANTOIN MONOHYD/M-CRYST] Propensity to adverse reactions to drug (disorder) 05-01-20 18 [facility] Repository (1 source) Egg; 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: [Eggs] Food allergy (disorder) [facility] Repository (1 source) PECANS; 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: [PECANS] Food allergy (disorder) [facility]ository Medications Current Medications Medication Drug [...] persist. 2 tablet 04/05/2024 Active lactobacillus acidophilus [id number] unt / pectin 100 mg oral tablet [...] 10/30/22 Status: Ordered take 1 capsule by [facility] every twenty-four hours Omeprazole 40 MG 1 cap(s) p.o. Once a da y Active peg 3350-sod sulf,psmg-phj-rpo 178.7-7.3-0.5 gram recon soln (1 source) Start: 10-13-2024 End: 10-14-2024 peg 3350-sod sulf,evug-why-ofz 178.7-7.3-0.5 gram recon soln Indications: Positive fecal [...] 2 Chronic Other aftercare (1 source) Other terminal gauger (current) drug therapy; 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: [OTH JAIL CURRENT DRUG THERAPY] Onset: 2 Episodic Other [...] MDRD (S/P/Bld) [Vol rate/Area] mL/min/{1.73_m2} Normal [facility] Comment on above: Performed By: #### L IPID, BMP #### [facility] [address] [id number] [place] Calcium [Mass/volume] in Ser um or PlasmaOrdered By: Dedrick Fuller on 08-30-2024 Calcium [Mass/Vol] 9.9 mg/dL Normal 8.6-10.3 [facility] Comment on above: Performed By: #### L IPID, BMP #### [facility] [address] [id number] [place] Carbon dioxide, total [Moles /volume] in Serum or PlasmaOrdered By: Dedrick Fuller on 08-30-2024 CO2 [Moles/Vol] 26.6 mmol/L Normal 21.0-31.0 [facility] Comment on above: Performed By: #### L IPID, BMP #### [facility] [address] [place] [address] [place] Chloride [Moles/volume] in S altagracia or PlasmaOrdered By: Dedrick Fuller on 08-30-2024 Chloride [Moles/Vol] 104 mmol/L Normal 98-107 [facility] Comment on above: Performed By: #### L IPID, BMP #### [facility] [address] [place] [address] [place] Cholesterol [Mass/volume] in Serum or PlasmaOrdered By: Dedrick Fuller on 08-30-2024 Cholesterol [Mass/Vol] 218 mg/dL High 140-200 [facility] Comment on above: Chol less than 200 m g/dl low riskChol 201-239 mg/dl borderline riskChol 240 mg/dl and greater high risk Result Comment: Chol less than 200 mg/dl low risk Chol 201-239 mg/dl borderline risk Chol 240 mg/dl and greater high risk Performed By: #### L IPID, BMP #### [facility] [address] [place] [address] [place] Cholesterol in LDL Calc [Mas s/Vol]Ordered By: Dedrick Fuller on 08-30-2024 Cholesterol in LDL [Mass/Vol] 134 mg/dL High 0-100 [facility] Comment on above: LDL ATP III CLASSIFI CATIONLDL less than 100 mg/dL OptimalLDL 100-129 mg/dL Near or above optimalLDL 130-159 mg/dL Borderline highLDL 160-189 mg/dL HighLDL greater than 189 mg/dL Very high Cholesterol in VLDL Calc [Ma ss/Vol]Ordered By: Dedrick Fuller on 08-30-2024 Cholesterol in VLDL [Mass/Vol] 46 mg/dL [facility] Creatinine [Mass/volume] in Serum or PlasmaOrdered By: Dedrick Fuller on 08-30-2024 Creatinine [Mass/Vol] 0.75 mg/dL Normal 0.60-1.20 [facility] Comment on above: Performed By: #### L IPID, BMP #### [facility] [address] Glucose [Mass/volume] in Ser um or PlasmaOrdered By: Dedrick Fuller on 08-30-2024 Glucose [Mass/Vol] 95 mg/dL Normal 70-100 [facility] Comment on above: ADA recommended refe rence rangeRandom Glucose Reference Range is dependent on time and content of last meal. Glucose of more than 200 mg/dL in a nonstressed, ambulatory subject supports the diagnosis of Diabetes Mellitus. Result Comment: [place] om Glucose Reference Range is dependent on time and content of last meal. Glucose of more than 200 mg/dL in a nonstressed, ambulatory subject supports the diagnosis of Diabetes Mellitus. ADA recommended reference range Performed By: #### L IPID, BMP #### [facility] [address] Lipid Panelon 08-30-2024 LDL Cholesterol,Calculated 134 mg/dL High 0-100 [facility] Comment on above: Result Comment: LDL ATP III CLASSIFICATION LDL less than 100 mg/dL Optimal LDL 100-129 mg/dL Near or above optimal LDL 130-159 mg/dL Borderline high LDL 160-189 mg/dL High LDL greater than 189 mg/dL Very high Performed By: #### L IPID, BMP #### [address] Triglyceride w/Reflex 231 mg/dL High 0-149 [facility] Comment on above: Result Comment: TRIG ATP III CLASSIFICATION TRIG less than 150 mg/dL Normal TRIG 150-199 mg/dL Borderline high TRIG 200-500 mg/dL High TRIG greater than 500 mg/dL Very high Standard traceable to the Center for Disease Conrtrol and Prevention (CDC) test method. Performed By: #### L IPID, BMP #### [address] VLDL CHOLESTEROL 46 mg/dL Normal [facility] Comment on above: Performed By: #### L IPID, BMP #### [address] No Panel InformationOrdered By: Dedrick Fuller on 08-30-2024 Estimated GFR (CKD-EPI) > 60.0 mL/Min [facility] Creatinine Clearance (Chem N/A [facility] Potassium [Moles/volume] in Serum or PlasmaOrdered By: Dedrick Fuller on 08-30-2024 Potassium [Moles/Vol] 4.1 mmol/L Normal 3.5-5.1 [facility] Comment on above: Performed By: #### L IPID, BMP #### [address] Serum or plasma anion gap de terminationOrdered By: Dedrick Fuller on 08-30-2024 Anion gap [Moles/Vol] 13.5 mmol/L Normal 6.0-15.0 [facility] Comment on above: Performed By: #### L IPID, BMP #### [address] Serum or plasma high density lipoprotein (HDL) cholesterol measurementOrdered By: Dedrick Fuller on 08-30-2024 Cholesterol in HDL [Mass/Vol] 38 mg/dL Normal 23-92 [facility] Comment on above: HDL CHOL ATP-III CLA SSIFICATION Cardiovascular RiskHDL > or equal to 60 mg/dL LOWHDL < 40 mg/dL HIGH Result Comment: HDL CHOL ATP-III CLASSIFICATION Cardiovascular Risk HDL > or equal to 60 mg/dL LOW HDL < 40 mg/dL HIGH Performed By: #### L IPID, BMP #### [facility] [address] [place] [address] Serum or plasma total choles terol/high density lipoprotein (HDL) cholesterol mass ratOrdered By: Dedrick Fuller on 08-30-2024 Cholesterol.total/Mirta sterol in HDL [Mass ratio] 5.7 {ratio} Normal <5.0 [facility] Comment on above: Result Comment: PERF ORMED BY: [place] [address] PATHOLOGIST [employer] IRMA MARCELO M.D. Performed By: #### L IPID, BMP #### [address] [address] [place] Sodium [Moles/volume] in Ser um or PlasmaOrdered By: Dedrick Fuller on 08-30-2024 Sodium [Moles/Vol] 140 mmol/L Normal 136-145 [facility] Comment on above: Performed By: #### L IPID, BMP #### [facility] [address] [id number] [facility] Triglyceride [Mass/volume] i n Serum or PlasmaOrdered By: Dedrick Fuller on 08-30-2024 Triglyceride [Mass/Vol] 231 mg/dL High 0-149 [facility] Comment on above: TRIG ATP III CLASSIF ICATIONTRIG less than 150 mg/dL NormalTRIG 150-199 mg/dL Borderline highTRIG 200-500 mg/dL High TRIG greater than 500 mg/dL Very highStandard traceable to the Center for Disease Conrtrol and Prevention (CDC) test method. Urea nitrogen [Mass/volume] in Serum or PlasmaOrdered By: Dedrick Fuller on 08-30-2024 Urea nitrogen [Mass/Vol] 18 mg/dL Normal 7-25 [facility] Comment on above: Performed By: #### L IPID, BMP #### [facility] [address] Coding Summaryon 03-19-2024 Coding Summary HTMLBase 64 DzrmlosfEPq3xMr+PGhlY WQ+NA1JJJOkS92ieSYchD 5sJ3YERDsGLgyfTSOCMTl OAgPprgHyNP4tlDZaSLMl IC8+MD3mOOTbFkuasFFso 0W9nFU4C55ypg3qGLnwfW C8FGZlVgTarxbuc8zbkCw 6IDcuNmluOyBt GSAmbA67IJG9rX79Wj50k SDlwRYwv6dmaXf3PxKfKY SrYKM2pOdcADyzx1PkFDE iI11tyUPjl0D7 IEZrzDnouPUqViUhyHV9e L9cHSpanlppl4flscswFu k5dk75lOJwx1N9gJE9Y0Q jaxH4VRHpnXJu MsffcXYKrP1hpjbzh2wet eiuNbYsFAFoTGj0IXo9EG NbdPthUcCgRM05JAG5SEZ vxnOpA5TaJWVn nWwfCkQ5v2O4Zt6FQ1UAE cxiG4JQQLNHQWugsBI+PC 65sf39T7OfMfclXdq0JIO jQLW6yQJ6vY7u XXQoMXylz0P9iHG6V1Bae mQazj6lu9bjLXUrSGgyK2 4gzGGkt5V2QTGkgIR2GVE vtXgqLfGkxO46 Oyc+LSDiyFuof5HeRwiim 9edi9mpgAa8RzbnQXAgir UinScrHZT8p8VnXf0iTLI otLV6hAC4xA3g RlEcOhB4ILnwJ572WkGrn EUfNylxL89hN4BulVV+PH ThYin9RHDxcIdoGW1eZ2R hZGRpbmctbGVm tZcaIV5iCWUupehiAIErp O8cUNGbH8e0RuBcZcN4UQ dvI0LtEOFehuckQi77tA2 gIvLfAmQ9KXlv W1ShkrQ7UJHbqOCxOJkpY AF4N30yz2Q6ATDvGXJoOS B3gCY4oC3qeEizvuindWP mdDsgdmVydGlj AKrbZZrkU205VMJwbWelC kNvZGluZyBEYXRlOiAgMD QvMTkvMjAyNDwvdGQ+PHR zRFB9ySsdPGXg nGQxXQfkPc4svLfliEtuI Q2gEPEttzjdVASwcD5rGU ElzNXbaEiaBX6vVIMdkrn tr154GsYvQFX2 FNQmyKZbJ7GbjL4rLbXjH VReCOMqG8CzzUNcXYtrH0 73FCouEaB6OXEcllTrW4R sLWFsaWduOiB0 l6U0Qr8La0ZsznviP4Dlz FPdVmIgKspiIDe7L9WcWl wvdHI+VG61DXHhGW42UBk 8CHN0fIvmBNlm TLLmQ0DjpW8bHpOnATQeZ GRkOyc+PHRhYmxlIHdpZH RoPScxMDAlJyBzdHlsZT0 aXc7jDZTePNPt dJmieUZvDmMck1bzBAEsN PjqFD9klResQ1HkaJV9YQ Jum9z1Xo70S78vD9EuySG +ZIOkrZM5hLE8 vV0zVyAeMqC2BMtvR337B oBkjFQpQavlu0nkf8yvdZ x1VbJ6GYZkldRauBqfWRT 8j8EaVt45H17h IHdpZHRoPSIxNSUiIHZhb Tqdke8uoL4gXe5+PGNvbC Y5iRH8hU9uRdRzTnA4CFo mS533IwOkkZKb Uygsn6bzq4nyfJq1LhVtO YSbcqWgyPnxHRY1h9JbSk 49R2MlnRioe0GwHxf2he4 7rYVtf7Z3kZR8 Z3IzUIZzfnfmsZEvdEqaH M8eLJQunhhaJBBpuS0vIG YtF9s6NfTaOeE2KXahC2G mwuK6WSBboJPr FOTguZZRuH9oaxejo9dqt buoClSbZAPgNTv1NPu5YS IaoZnsNaKdZVA2CdE1LSR 2aAKntF7spUue tccbxW1xNph+YAY1iVVtz PWEFW6aZmtuvSZ+PHRkIH M1vJvuCZmdBBHtoB5oIHN jO4e3QtSfPkS5 KXvwH2TbzuH3JUBeaRLfH EKicLWQzX5xpkqrh3htju mtDgQjVBEbAGk7MKt9TIT saWduOiBsZWZ0 VsB4UNM0dALoeJ0ytTnkh pssdK4rDld+QmlydGggRG D1PVo0S4YcSom8CHDkxPk bPQ1khPXtHPce Se1meLfqiIqoIY0cJNLhj ocst461KuCxh5fvNOCleU LhXZfpJPJ9X08ak6N2BUR iHHLrUFW0xQN3 nL7ulBymseyncGOrtYwfz iZnyEbdFFgsATooD227BM JfwSqeAnAvUQx7H9CnOij 8LVSitZusPX8e fWTdXHzpLq3hjJfigUujK Z4bHWPveybqm952ExFcz7 daVOWlhQUkZAcrHGP3B34 nf3P3CYQcHHWq OSQ5rHI9tR7btUhqzetsv GVmdDsgdmVydGljYWwtYW jmM687CDClyMkxHhNwuOg 7B8UwFcj1IRRc lUbqLX8rlIDkHTcdJp3ux FyyiRyyYM6qOZEhudrmq3 25NbDnm5kjDLPipSXqBQc pFDE4Q29fo3Z6 OPPjYZEeSUL8aXS6iY9qd GlnbjogbGVmdDsgdmVydG yjFDhjVMooQ255DSHilMk nPlBhdGllbnQg MPwfLRy9J3ZzNdpvlBD+P J57CEKfRQ74tFNbqCCsy0 kjcLd4CvVeZMKpMRL7oVz oSRsdy5XmABOc M01bnBUnp9N4JNKncUhfk ZIwYtGkcKB2zU1qIBleyj akd6zjlvrkBgamw3pcbz2 9wB70L35kDNhq ZHRoPSIzMCUiIHZhbGlnb h4fdD9eKw4+KPJghON6uC I1jP7wRUInEoU5QAmzI72 9InRvcCIvPjxj p8xux7yqcPj5VnS4UNRrg eDnsBavSQM8a4EnEr31H9 9sIHdpZHRoPSIyMCUiIHZ uwMjdvr6skU6m Ii8+NDRnmTO7tZQ8cH1jZ bEiOyB4CBkuU667SwIeiV YcFhjfJ96pK1JogFW+PHR sDmb0VADkeJnu RJ1pmKZqJWqdYt6jDCP2F dUsDyJvJGtdB8VeKHNxlg vlwkbitCX0BRMvMOFpxU7 4Av7onPsrVCXg fGSMmX9mipmmg0rxyfwgH oKrBEOgKMi3ERu1PALlrA gvDmDpPMV7RoB3PVB5dUZ foS0yrIjyarjb nN9oI3IqYXLcocxuQv10j Z4tWyZeJfX0MQgzVog+Q0 6RFABBURMZHQSXCU8EFY4 YT63AFCkfsJB+ UXKoNOR1rFjpZYrrRGZkt C8iPMKwC0z2JiAiBdK1EX hqD1LbGVYojoslEv61rI6 sWrUzPyK2CBvb N5XdhxR3JBHizPXjMUzjO QD9A27hg8V4RXVbXWXmYT F5rJW5uD4gpKqxkdkwyQZ mdDsgdmVydGlj NLapAOuvE682HSHnqTpmH tL9JwG2GtT4KdK9E3EkAy l0AATipLrpTY0acJPyVQl yUq1ijIdgnNyt QZ8lHFViekhwTPYbhK6mZ AZebALslUqdBO6uDWErhp rha384ScUwXLX2NXCtsPT pK0FnrQ9eGuVg EGSeKQLtQ0BogOVgZKmyO 019WKuyJwJ9HIIheyDtH4 QsJXBbuQqdBeW0q6N6Hq2 0NyBZZWFyczwv dGQ+WACyREE3oZuqHQeqS KNxnZ0nBEAiZ3r4AuUoEm L2INmfP8TgBNSmzcrmSf4 5eT2mPvObTeQ0 UXwgW5NrrsH7QDLeiPJfH GynVIR0E65px8X5DSXaDF RkWKK8yIR8tC6uvUyuilx gbGVmdDsgdmVy kMxqHQefHXslT215VTEbq DsnPkZFTUFMRTwvdGQ+PH WdNNV4sTqgPQduAELzkP8 aUTYkZ1b1QzZq FiS8AUgyS1JiSHMrcpvfD r42nR5bKsPiRuS0DMqyZ1 MlugN8RQUcsSGkXEmjLLA 1Z88pt5R1HPTm ERRxFGO7aBT0qD7wtGjyp jogbGVmdDsgdmVydGljYW ufYIyzA386UJXgmHadYjN bKEXbKX0lyUsk dGQ+CQ92cx97Y6RgWzmoE xm0YZWgYKK9nIA4wB5bUJ OoPKgkz3H9xIF3R0WqklD laj3jg2laEOLi VRlpS28gyMVfh0T7MCHrj QC9CLTmsOetXiTdaI81Lk c+TUCbzLtsn7AmSplrr4l ok3ewsGk9SnEn GMHykxBpzObvIHY2k1RfY h80Q06aFWvdTQVmWEYvIO FlOFNavTlxaq3twZ4cMn4 +WMPfpFJ3pXH6 xK4wBoIjQdM6MSmhE370W hGmyFKuBfctb5hds3tsvF d3LhEgSJPfcqAtfVipYZH 5v7RaOf72Y3Uc aIsju9BcSpo0pk48mMEhc 2A7jXJ3M9PwLXVerimbaM YpoIhcAE7aYQNsbvvgEZD dgH5jMZFzL3g6 YgDhSuF7TCjvU3AjquG0E CJxfEQaUWFlxRXXxT8feu adm6ljozxtArKpKFWoAPt 3YSz7VKOpnKpm ZsOkWWX6GiG3LBL4rZMms P3jcYsfrmjdkU0yYuu+UG o7r1ictAIrKY6cuYF0VE4 0ZI87gBNvy7Y7 xRX8P3CtZDZkialnohrfh OA3MMUlLYQvmD90Uy0rvK qwOm8dZYNlASS9ITWttMB nV8TkqT2tAlUx XECtJDJhV7FjdBKlSZuxY 480MDtrQiX7HBBmqyBuR6 ZhTOWlxPpfHcG5b0C1Mi0 FJF28SL01XF86 wGNjh1Z0mOH4E6AnQUPrg qlqxvgcoGJ4IBYrHVKxbF 41Hk7ufGnyKk4pAUYhJGK 1CHPgeNZnF2Kl iF1cWbXfLVZyEJWvZ3Ndm FJgAZlrO790DFnlSzG5IE PiieHdE2ZiSKMegDbgXxF 9d5F7Zk2UBp77 RI15ZE73dQEzw7Z3vIM4W 0FwXAEtbqprzxlumWY8LD QtDTXpgP12Bg0vfNhoEk9 zJFNtDDR3CXYl sIXtQ7ZjjG1gFpKdZQKqZ WOdR4GkcOZjGVajP587DE gpCmU0QZYdhxOsH5BhFJR ooVjlBhW1v2P1 Lg9SITayewf7G2AbCqerd HI+FS87IDWbVT81pYTbeE Toc8jrmNa2GaXpJRMwVPW 1pRqlVOpoh7Ol ZXI (more content not included)... [facility] Ambulance Noteon 03-17-2024 Ambulance Note [id number]#1.00 OTGTIFF [facility] C Urineon 03-17-2024 C Urine Urine Culture ordere d as a result of parameters set on specific urine dip and urine microsopic results. >100,000 cfu/ml Lactobacillus species Normal vaginal oleg isolated 10,000 cfu/ml Corynebacterium species (DIPTHEROID) No YOLANDE performed on this organism No pathogens isolated Normal [facility] Comment on above: Performed By: #### 5 [id number] ####[facility] (DEFAULT)[address] [place] [address] .Auto Diff 1on 03-15-2024 Auto Meagher % 3 % Normal 1-12 [facility] Comment on above: Performed By: #### 5 [id number], [id number], [id number], [id number], [id number], [id number], [id number] #### [facility] (DEFAULT) [address] [place] [address] Baso Abs# 0.1 x10 Normal 0.0-0.2 [facility] Comment on above: Performed By: #### 5 [id number], [id number], [id number], [id number], [id number], [id number], [id number] #### [facility] (DEFAULT) [address] [place] [address] Basophils/100 WBC (Bld) 0.7 % Normal 0.2-2.0 [facility] Comment on above: Performed By: #### 5 [id number], [id number], [id number], [id number], [id number], [id number], [id number] #### [facility] (DEFAULT) [address] [place] [address] Eos Abs# 0.1 x10 Normal 0.0-0.4 [facility] Comment on above: Performed By: #### 5 [id number], [id number], [id number], [id number], [id number], 0363375, [id number] #### [facility] (DEFAULT) [address] [place] [address] Eosinophils/100 WBC (Bld) 0.7 % Low 0.9-4.0 [facility] Comment on above: Performed By: #### 5 [id number], [id number], [id number], [id number], [id number], [id number], [id number] #### [facility] (DEFAULT) [address] [place] [address] Lymph Abs# 2.2 x10 Normal 1.3-2.9 [facility] Comment on above: Performed By: #### 5 [id number], [id number], [id number], [id number], [id number], [id number], [id number] #### [facility] (DEFAULT) [address] [place] [address] Lymphocytes/100 WBC (Bld) 14 % Normal 14-48 [facility] Comment on above: Performed By: #### 5 [id number], [id number], [id number], [id number], [id number], 8107733, [id number] #### [facility] (DEFAULT) [address] [place] [address] Meagher Abs# 0.5 x10 Normal 0.0-0.8 [facility] Comment on above: Performed By: #### 5 [id number], [id number], [id number], [id number], [id number], 0104689, [id number] #### [facility] (DEFAULT) [address] [place] [address] Neut Abs# 13.5 x10 High 1.5-9.2 [facility] Comment on above: Result Comment: Slid e Reviewed Performed By: #### 5 [id number], [id number], [id number], [id number], [id number], [id number], [id number] #### [facility] (DEFAULT) [address] [place] [address] Neutrophils/100 WBC (Bld) 82 % Normal 44-88 [facility] Comment on above: Performed By: #### 5 [id number], [id number], [id number], [id number], [id number], 7076271, [id number] #### [facility] (DEFAULT) [address] [place] [address] CBC w/ Auto Diffon 4 Erythrocyte distribution width (RBC) [Ratio] 13.3 % Normal 11.5-15.0 [facility] Comment on above: Performed By: #### 5 [id number], [id number], [id number], [id number], [id number], 9307730, 3548653 #### [facility] (DEFAULT) [address] [place] [address] Hematocrit (Bld) [Volume fraction] 45.0 % High 33.7-40.4 [facility] Comment on above: Performed By: #### 5 [id number], [id number], [id number], 80727337, 6096445580, 2758369, 4217819 #### [facility] (DEFAULT) [address] [place] [address] Hemoglobin (Bld) [Mass/Vol] 15.0 g/dL Normal 11.3-15.9 [facility] Comment on above: Performed By: #### 5 [id number], [id number], [id number], 61184400, 8973323304, 7202273, 3867008 #### [facility] (DEFAULT) [address] [place] [address] Man Diff? Auto Invalid Interpretation Code [facility] Comment on above: Performed By: #### 5 [id number], [id number], [id number], 82050910, [id number], 5223745, 2225281 #### [facility] (DEFAULT) [address] [place] [address] MCH (RBC) [Entitic mass] 32 pg Normal 24-34 [facility] Comment on above: Performed By: #### 5 [id number], [id number], 5406472209, 65173779, 3882418815, 0037486, 3367005 #### [facility] (DEFAULT) [address] [place] [address] MCHC (RBC) [Mass/Vol] 33 g/dL Normal 26-37 [facility] Comment on above: Performed By: #### 5 [id number], [id number], 8657837614, 51660923, 6059679790, 7372899, 9734811 #### [facility] (DEFAULT) [address] [place] [address] MCV (RBC) [Entitic vol] 95 fL Normal 81-100 [facility] Comment on above: Performed By: #### 5 [id number], [id number], [id number], 52259289, 5068679888, 3395430, 6831708 #### [facility] (DEFAULT) [address] [place] [address] 73080 Platelet 292 x10 Normal 138-427 [facility] Comment on above: Performed By: #### 5 [id number], [id number], [id number], 45163034, 5321135063, 5825057, 0053815 #### [facility] (DEFAULT) [address] [place] [address] 40600 Platelet mean volume (Bld) [Entitic vol] 8.7 fL Normal 6.3-10.2 [facility] Comment on above: Performed By: #### 5 [id number], [id number], 5143208714, 59577428, 1519964390, 1729777, 4038232 #### [facility] (DEFAULT) [address] [place] [address] 48989 RBC 4.74 x10 Normal 3.70-5.30 [facility] Comment on above: Performed By: #### 5 [id number], [id number], 3317045036, 21448514, 6929699102, 7389038, 7875747 #### [facility] (DEFAULT) [address] [place] [address] 17734 WBC 16.4 x10 High 3.5-10.5 [facility] Comment on above: Performed By: #### 5 [id number], [id number], 4481743907, 13773320, 8675070420, 5325174, 8046080 #### [facility] (DEFAULT) [address] [place] [address] 05221 CMP Standardon 03-15-2024 eGFR Non AA >60 Invalid Interpretation Code [facility] Comment on above: Performed By: #### 5 [id number], [id number], 8164869124, 88741073, 6673361139, 0687590, 6139423 #### [facility] (DEFAULT) [address] [place] [address] 04767 eGFR AA >60 Invalid Interpretation Code [facility] Comment on above: Performed By: #### 5 [id number], [id number], 8603990886, 45741662, 8252495711, 9928797, 1703868 #### [facility] (DEFAULT) [address] [place] [address] 72467 Albumin [Mass/Vol] 4.1 g/dL Normal 3.5-5.0 [facility] Comment on above: Performed By: #### 5 [id number], [id number], 1180891801, 54548757, 6857394542, 8471596, 2955565 #### [facility] (DEFAULT) [address] [place] [address] 28180 Albumin/Globulin [Mass ratio] 1.3 {ratio} Low 1.4-2.6 [facility] Comment on above: Performed By: #### 5 [id number], [id number], 0889486103, 77828309, 6697262742, 4004599, 1791135 #### [facility] (DEFAULT) [address] [place] [address] 03621 Alk Phos 39 IU/L Normal 32-91 [facility] Comment on above: Performed By: #### 5 [id number], 7714097188, 6484100399, 65413752, 1156472257, 4726594, [id number] #### [facility] (DEFAULT) [address] [place] [address] 22810 ALT [Catalytic activity/Vol] 32.0 U/L Normal 14.0-54.0 [facility] Comment on above: Performed By: #### 5 [id number], [id number], [id number], 31521483, [id number], 1760859, 2364168 #### [facility] (DEFAULT) [address] [place] [address] 85612 Anion gap [Moles/Vol] 13.0 mmol/L Normal 5.0-19.0 [facility] Comment on above: Performed By: #### 5 [id number], [id number], [id number], 68873265, 7133013150, 7542881, 1889542 #### [facility] (DEFAULT) [address] [place] [address] 45554 AST [Catalytic activity/Vol] 25 U/L Normal 15-41 [facility] Comment on above: Performed By: #### 5 [id number], [id number], [id number], 85770775, 1366591277, 1207321, 8838984 #### [facility] (DEFAULT) [address] [place] [address] 99215 Bili Total 1.4 mg/dL High 0.3-1.2 [facility] Comment on above: Performed By: #### 5 [id number], [id number], 6951782746, 08459639, 7003592951, 0804608, 7110636 #### [facility] (DEFAULT) [address] [place] [address] 13010 Calcium [Mass/Vol] 8.8 mg/dL Low 8.9-10.3 [facility] Comment on above: Performed By: #### 5 [id number], [id number], 7779327615, 37048638, 1363782004, 0205291, 8808293 #### [facility] (DEFAULT) [address] [place] [address] 69548 Chloride [Moles/Vol] 105 mmol/L Normal 101-111 [facility] Comment on above: Performed By: #### 5 [id number], [id number], 5189962592, 09904493, 6011750324, 1138900, 9582580 #### [facility] (DEFAULT) [address] [place] [address] 12916 CO2 [Moles/Vol] 24 mmol/L Normal 21-32 [facility] Comment on above: Performed By: #### 5 [id number], [id number], 9576046451, 30154988, 2414018334, 6175464, 7877174 #### [facility] (DEFAULT) [address] [place] [address] 00468 Creatinine [Mass/Vol] 0.72 mg/dL Normal 0.60-1.30 [facility] Comment on above: Performed By: #### 5 [id number], [id number], 4050103873, 23146061, 6355288048, 2038451, 4515173 #### [facility] (DEFAULT) [address] [place] [address] 23450 Globulin (S) [Mass/Vol] 3.0 g/dL Normal 1.5-4.3 [facility] Comment on above: Performed By: #### 5 [id number], [id number], 8008120536, 11927543, 2686389743, 7741899, 2641698 #### [facility] (DEFAULT) [address] [place] [address] 29249 Glucose [Mass/Vol] 124.0 mg/dL High 74.0-118.0 [facility] Comment on above: Performed By: #### 5 [id number], [id number], 9215546331, 30858712, 4974493977, 0949438, 9486569 #### [facility] (DEFAULT) [address] [place] [address] 18590 Osmolality 278 mOsm/L Invalid Interpretation Code [facility] Comment on above: Performed By: #### 5 [id number], [id number], [id number], 26221428, 4019548467, 8694578, 0327644 #### [facility] (DEFAULT) [address] [place] [address] 57436 Potassium [Moles/Vol] 4.0 mmol/L Normal 3.6-5.1 [facility] Comment on above: Performed By: #### 5 [id number], [id number], 5248325430, 28440169, 3092249606, 7565077, 1327014 #### [facility] (DEFAULT) [address] [place] [address] 07957 Protein [Mass/Vol] 7.1 g/dL Normal 6.5-8.1 [facility] Comment on above: Performed By: #### 5 [id number], [id number], 9762481506, 45312100, 1508822353, 6356465, 8507533 #### [facility] (DEFAULT) [address] [place] [address] Sodium [Moles/Vol] 138.0 mmol/L Normal 136.0-144.0 [facility] Comment on above: Performed By: #### 5 [id number], [id number], 7059691378, 08085903, 6716483834, 2117524, 9575125 #### [facility] (DEFAULT) [address] [place] [address] Urea nitrogen [Mass/Vol] 15 mg/dL Normal 8-26 [facility] Comment on above: Performed By: #### 5 [id number], [id number], 6629157743, 84528755, 1898060524, 3569803, 4174142 #### [facility] (DEFAULT) [address] [place] [address] Urea nitrogen/Creatinine [Mass ratio] 20.8 mg/mg High 4.6-16.2 [facility] Comment on above: Performed By: #### 5 [id number], [id number], 9522577248, 72964895, 6349429647, 1638039, 5165427 #### [facility] (DEFAULT) [address] [place] [address] 12301 Breakpoint Chem Normal [facility] Comment on above: Performed By: #### 5 [id number], [id number], 2347476642, 69100367, 8260336278, 4483400, 7455260 #### [facility] (DEFAULT) [address] [place] [address] ED Clinical Summaryon 2023 ED Clinical Summary [facility] - Emergency Department [address] [place] [address] ED Clinical Summary PERSON INFORMATION Name: HORACIO KEATING Age: 48 Years Sex: FEMALE : 1975 MRN: Acct#: Visit Reason: Shortness of breath; Anxiety; Blood pressure check; SOB Arrival: 03/15/2024 17:56:51 Discharge: 03/15/2024 20:31:00 LOS: 000 02:35 Check In: 03/15/2024 17:56:51 Checkout:03/15/2024 20:31:00 Address: [address] [place] [address] PCP: SAMI MARINELLI PROVIDER INFORMATION Provider Role [...] Physical Exa (more content not included)... Normal [facility] ED Note - Physicianon 2023 ED [...] lymphadenopathy. Psychiatric: (more content not included)... Normal [facility] ED Note-Nursingon 03-15-2024 ED Note-Nursing Patient presents to the ER via [facility] for shortness of breath, anxiety. Patient [...] 12 lead was regular in rate Normal [facility] ED Patient Summaryon 024 ED Patient Summary [facility] - Emergency Department [address] [place] [address] PATIENT DISCHARGE INSTRUCTIONS Patient Information Name: HORACIO KEATING Age: 48 Years Date of : 1975 [facility]: [id number] Reason For Visit: Shortness of breath; Anxiety; Blood pressure check; SOB Arrival Time: 03/15/2024 17:56:51 Primary Care Physician: SAMI MARINELLI Attending Physician: Nicola Neff DO Comment: Visit Diagnosis: Diagnoses This Visit Anxiety ([id number]) Blood pressure check ([id number]) Hypertension (I10) Panic attack (F41.0) Shortness of breath ([id number]) Urinary tract infection (N39.0) The Pharmacy at [facility] is open Friday through Friday [...] alcohol and/or drug addiction problems; contact the [facility] 23/06 Crisis Hotline -Text 2RFAP hh [phone]. If you received any narcotics, sedation, or [...] legal documents With: Address: When: SAMI MARINELLI [address] [place] [address] [place] [address] Business (1) Within 3 to 5 days Comments: Call for follow up appointment Return if symptoms worsen Medication Information: The exam and treatment you received today in the [facility] Emergency Department were for an urgent problem and are not intended as complete care. It is important for you to follow up with a doctor, nurse practitioner, or physician?s bricklayer's assistant for ongoing care. If your symptoms [...] so we can reach you if necessary. [facility] Emergency Department has provided you with a complete list of medications post discharge. Please inform your machine technician/provider of your visit and for further [...] Vitals an (more content not included)... Normal [facility] Extra Greenon 03-15-2024 Tube Collected Yes Invalid Interpretation Code [facility] Comment on above: Performed By: #### 5 [id number], [id number], [id number], 86078822, 0667137367, 0580406, 3807333 #### [facility] (DEFAULT) [address] [place] [address] Extra Redon 03-15-2024 Tube Collected Yes Invalid Interpretation Code [facility] Comment on above: Performed By: #### 5 [id number], [id number], 3774754974, 44412580, 3434322984, 7327631, 0198686 #### [facility] (DEFAULT) [address] [place] [address] 51215 PTon 03-15-2024 INR Coag (PPP) [Relative time] 0.94 {INR} Normal 0.91-1.11 [facility] Comment on above: Performed By: #### 5 [id number], [id number], 4327668563, 15279725, 0487780606, 5076638, 7684075 #### [facility] (DEFAULT) [address] [place] [address] PT 9.8 second(s) Normal 9.7-11.8 [facility] Comment on above: Performed By: #### 5 [id number], [id number], 9176557187, 75274503, 2293201469, 2407021, 0796724 #### [facility] (DEFAULT) [address] [place] [address] TnI HSon 03-15-2024 Troponin I High Sensitivity 7.7 pg/mL Normal <=15.0 [facility] Comment on above: Performed By: #### 5 [id number], [id number], 6575885946, 06662550, 9470734431, 9434106, 9357853 #### [facility] (DEFAULT) [address] [place] [address] UA [id number] 03-15-2024 UA Amorph. 1+ [facility] Comment on above: Order Comment: Urina lysis Microscopic order added on by Discern Expert Rules system. Performed By: #### 5 [id number], [id number], [id number] ####[facility] (DEFAULT)[address] [place] [address] UA Bacteria 3+ Normal [facility] Comment on above: Order Comment: Urina lysis Microscopic order added on by [employer] Expert Rules system. Performed By: #### 5 [id number], [id number], 8647033 ####[facility] (DEFAULT)[address] [place] [address] UA Mucous 1+ Normal [facility] Comment on above: Order Comment: Urina lysis Microscopic order added on by [employer] Rules system. Performed By: #### 5 [id number], [id number], 2573409 ####[facility] (DEFAULT)[address] [place] [address] 50851 UA RBC 3-5 Normal [facility] Comment on above: Order Comment: Urina lysis Microscopic order added on by [employer] Rules system. Performed By: #### 5 [id number], [id number], 4847526 ####[facility] (DEFAULT)[address] [place] [address] 55789 UA Renal Epi Rare Normal [facility] Comment on above: Order Comment: Urina lysis Microscopic order added on by [employer] Rules system. Performed By: #### 5 [id number], [id number], 2641509 ####[facility] (DEFAULT)[address] [place] [address] 75300 UA Squam Epi Many Normal [facility] Comment on above: Order Comment: Urina lysis Microscopic order added on by [employer] Expert Rules system. Performed By: #### 5 [id number], [id number], 0110056 ####[facility] (DEFAULT)[address] [place] [address] 00961 UA WBC 3-5 [facility] Comment on above: Order Comment: Urina lysis Microscopic order added on by [employer] Expert Rules system. Performed By: #### 5 [id number], [id number], 1141223 ####[facility] (DEFAULT)[address] [place] [address] 92778 UA w Culture if Ind Standard on 03-15-2024 Breakpoint UA [facility] Comment on above: Performed By: #### 5 [id number], [id number], 7085589 ####[facility] (DEFAULT)[address] [place] [address] Color (U) Yellow [facility] Comment on above: Performed By: #### 5 [id number], [id number], 5521798 ####[facility] (DEFAULT)[address] [place] [address] Culture? Indicated Invalid Interpretation Code [facility] Comment on above: Result Comment: Resu lt created by rule GL_MAGR_ADD_UA_CULT Result created by rule GL_MAGR_ADD_UA_CULT Result created by rule GL_MAGR_ADD_UA_CULT1 Result created by rule GL_MAGR_ADD_UA_CULT Performed By: #### 5 [id number], [id number], 9913373 ####[facility] (DEFAULT)[address] [place] [address] 74111 Glucose (U) [Mass/Vol] Negative [facility] Comment on above: Performed By: #### 5 [id number], [id number], 6742037 ####[facility] (DEFAULT)[address] [place] [address] 53626 Ketones Ql (U) Negative [facility] Comment on above: Performed By: #### 5 [id number], [id number], 7602723 ####[facility] (DEFAULT)[address] [place] [address] 55774 Micro? Indicated Invalid Interpretation Code [facility] Comment on above: Result Comment: Resu lt created by rule GL_MAGR_ADD_UA_MICRO Performed By: #### 5 [id number], [id number], 0727791 ####[facility] (DEFAULT)[address] [place] [address] 08863 UA Bilirubin Negative Normal [facility] Comment on above: Performed By: #### 5 [id number], [id number], 6292253 ####[facility] (DEFAULT)[address] [place] [address] 94748 UA Blood TRACE Abnormal NEGATIVE [facility] Comment on above: Performed By: #### 5 [id number], [id number], 8077369 ####[facility] (DEFAULT)[address] [place] [address] 50271 UA Clarity SL CLOUDY Abnormal CLEAR [facility] Comment on above: Performed By: #### 5 [id number], [id number], 7269691 ####[facility] (DEFAULT)[address] [place] [address] 16867 UA Leuk Est LARGE Abnormal NEGATIVE [facility] Comment on above: Performed By: #### 5 [id number], [id number], 3828745 ####[facility] (DEFAULT)[address] [place] [address] 95289 UA Nitrite Negative Normal NEGATIVE [facility] Comment on above: Performed By: #### 5 [id number], [id number], 2644106 ####[facility] (DEFAULT)[address] [place] [address] 63441 UA pH 6.0 Normal 5-8 [facility] Comment on above: Performed By: #### 5 [id number], [id number], [id number] ####[facility] (DEFAULT)[address] [place] [address] 83273 UA Protein Negative Normal NEGATIVE [facility] Comment on above: Performed By: #### 5 [id number], [id number], 2779838 ####[facility] (DEFAULT)[address] [place] [address] UA Spec Grav 1.015 Normal 1.001-1.035 [facility] Comment on above: Performed By: #### 5 [id number], [id number], [id number] ####[facility] (DEFAULT)[address] [place] [address] UA Urobilinogen 0.2 mg/dL Normal 0.2-1.0 [facility] Comment on above: Performed By: #### 5 [id number], [id number], 1481102 ####[facility] (DEFAULT)[address] [place] [address] Urine Source Clean Catch Normal [facility] Comment on above: Performed By: #### 5 [id number], [id number], 2790761 ####[facility] (DEFAULT)[address] [place] [address] XR Chest 1 View Frontalon XR Chest [...] MD 03/15/24 7:34 pm Technologist: Lizzy BRICEÑO [facility] Calcium [Mass/volume] in Ser um or PlasmaOrdered By: Dedrick Fuller on 08-15-2023 Calcium [Mass/Vol] 9.1 mg/dL 8.6-10.3 [facility] Carbon dioxide, total [Moles /volume] in Serum or PlasmaOrdered By: Dedrick Fuller on 08-15-2023 CO2 [Moles/Vol] 26.7 mmol/L 21.0-31.0 [facility] Chloride [Moles/volume] in S altagracia or PlasmaOrdered By: Dedrick Fuller on 08-15-2023 Chloride [Moles/Vol] 107 mmol/L 98-107 [facility] Cholesterol [Mass/volume] in Serum or PlasmaOrdered By: Dedrick Fuller on 08-15-2023 Cholesterol [Mass/Vol] 166 mg/dL 140-200 [facility] Comment on above: Chol less than 200 m g/dl low riskChol 201-239 mg/dl borderline riskChol 240 mg/dl and greater high risk Cholesterol in LDL Calc [Mas s/Vol]Ordered By: Dedrick Fuller on 08-15-2023 Cholesterol in LDL [Mass/Vol] 95 mg/dL 0-100 [facility] Comment on above: LDL ATP III CLASSIFI CATIONLDL less than 100 mg/dL OptimalLDL 100-129 mg/dL Near or above optimalLDL 130-159 mg/dL Borderline highLDL 160-189 mg/dL HighLDL greater than 189 mg/dL Very high Cholesterol in VLDL Calc [Ma ss/Vol]Ordered By: Dedrick Fuller on 08-15-2023 Cholesterol in VLDL [Mass/Vol] 32 mg/dL [facility] Creatinine [Mass/volume] in Serum or PlasmaOrdered By: Dedrick Fuller on 08-15-2023 Creatinine [Mass/Vol] 0.77 mg/dL 0.60-1.20 [facility] Glucose [Mass/volume] in Ser um or PlasmaOrdered By: Dedrick Fuller on 08-15-2023 Glucose [Mass/Vol] 97 mg/dL 70-100 [facility] Comment on above: ADA recommended refe rence rangeRandom Glucose Reference Range is dependent on time and content of last meal. Glucose of more than 200 mg/dL in a nonstressed, ambulatory subject supports the diagnosis of Diabetes Mellitus. No Panel InformationOrdered By: Dedrick Fuller on 08-15-2023 Estimated GFR (CKD-EPI) > 60.0 mL/Min [facility] Creatinine Clearance (Chem N/A [facility] Potassium [Moles/volume] in Serum or PlasmaOrdered By: Dedrick Fuller on 08-15-2023 Potassium [Moles/Vol] 4.0 mmol/L 3.5-5.1 [facility] Serum or plasma anion gap de terminationOrdered By: Dedrick Fuller on 08-15-2023 Anion gap [Moles/Vol] 10.3 mmol/L 6.0-15.0 [facility] Serum or plasma high density lipoprotein (HDL) cholesterol measurementOrdered By: Dedrick Fuller on 08-15-2023 Cholesterol in HDL [Mass/Vol] 39 mg/dL 23-92 [facility] Comment on above: HDL CHOL ATP-III CLA SSIFICATION Cardiovascular RiskHDL > or equal to 60 mg/dL LOWHDL < 40 mg/dL HIGH Serum or plasma total choles terol/high density lipoprotein (HDL) cholesterol mass ratOrdered By: Dedrick Fuller on 08-15-2023 Cholesterol.total/Mirta sterol in HDL [Mass ratio] 4.3 {ratio} <5.0 [facility] Sodium [Moles/volume] in Ser um or PlasmaOrdered By: Dedrick Fuller on 08-15-2023 Sodium [Moles/Vol] 140 mmol/L 136-145 [facility] Triglyceride [Mass/volume] i n Serum or PlasmaOrdered By: Dedrick Fuller on 08-15-2023 Triglyceride [Mass/Vol] 162 mg/dL 0-149 [facility] Comment on above: TRIG ATP III CLASSIF ICATIONTRIG less than 150 mg/dL NormalTRIG 150-199 mg/dL Borderline highTRIG 200-500 mg/dL High TRIG greater than 500 mg/dL Very highStandard traceable to the Center for Disease Conrtrol and Prevention (CDC) test method. Urea nitrogen [Mass/volume] in Serum or PlasmaOrdered By: Dedrick Fuller on 08-15-2023 Urea nitrogen [Mass/Vol] 10 mg/dL 7-25 [facility] GTT 2 HRon 11-09-2022 Glucose [Mass/Vol] 107 mg/dL Critically high 74-106 [facility] Comment on above: Performed By: #### U LG, CRP #### [facility] [address] [address] [address] Soo Donnelly Glucose [Mass/Vol] 152 mg/dL Normal [facility] Comment on above: Performed By: #### U LG, CRP #### [facility] [address] [place], [place] [address] Dr. Soo Donnelly Glucose [Mass/Vol] 121 mg/dL Normal [facility] Comment on above: Performed By: #### U LG, CRP #### [facility] [address] [place], [place] [address] ABD/PELV W CONon [...] LUZ ELENA SAUCEDA Date: 2022-10-01 10:31 Normal [facility] CBC AUTO DIFFon 09-18-2022 BASO # 0.0 103/ul Normal 0.0-0.1 [facility] Comment on above: Performed By: #### A NAD #### [facility] [address] [address] [address] Soo Donnelly Basophils/100 WBC (Bld) 0.4 % Normal 0.2-2.[address] [facility] Comment on above: Performed By: #### A NAD #### [facility] [address] [place] [address] Dr. Soo Donnelly EO # 0.1 103/ul Normal 0.0-0.7 [facility] Comment on above: Performed By: #### A NAD #### [facility] [address] [place] [address] Dr. Soo Donnelly Eosinophils/100 WBC (Bld) 1.8 % Normal 0.9-7.0 [facility] Comment on above: Performed By: #### A NAD #### [facility] [address] [place] [address] Dr. Soo Donnelly Erythrocyte distribution width (RBC) [Ratio] 11.9 % Normal 11.0-15.0 [facility] Comment on above: Performed By: #### A NAD #### [facility] [address] [place] [address] Dr. Soo Donnelly Hematocrit (Bld) [Volume fraction] 43.9 % Normal 36.0-48.0 [facility] Comment on above: Performed By: #### A NAD #### [facility] [address] [place] [address] Dr. Soo Donnelly Hemoglobin (Bld) [Mass/Vol] 14.6 g/dL Normal 12.0-16.0 [facility] Comment on above: Performed By: #### A NAD #### [facility] [address] [place] [address] Dr. Soo Donnelly IG # 0.01 10e3/ul Normal 0.00-0.03 [facility] Comment on above: Performed By: #### A NAD #### [facility] [address] [place] [address] Dr. Soo Donnelly IG % 0.1 % Normal 0.0-0.5 [facility] Comment on above: Performed By: #### A NAD #### [facility] [address] [place] [address] Dr. Soo Donnelly LYMPH # 2.7 103/ul Normal 1.2-3.8 [facility] Comment on above: Performed By: #### A NAD #### [facility] [address] [place] [address] Dr. Soo Donnelly Lymphocytes/100 WBC (Bld) 39.9 % Normal 20.5-60.0 [facility] Comment on above: Performed By: #### A NAD #### [facility] [address] [place] [address] Dr. Soo Donnelly MANUAL DIFF REQ NO Normal [facility] Comment on above: Performed By: #### A NAD #### [facility] [address] [place] [address] Dr. Soo Donnelly MCH (RBC) [Entitic mass] 31.7 pg Normal 26.7-34.0 [facility] Comment on above: Performed By: #### A NAD #### [facility] [address] [place] [address] Dr. Soo Donnelly MCHC (RBC) [Mass/Vol] 33.3 g/dL Normal 29.9-35.2 [facility] Comment on above: Performed By: #### A NAD #### [facility] [address] [place] [address] Dr. Soo Donnelly MCV (RBC) [Entitic vol] 95.4 fL Normal 81.0-99.[address] [facility] Comment on above: Performed By: #### A NAD #### [facility] [address] [place] [address] Dr. Soo Donnelly MONO # 0.4 103/ul Normal 0.3-0.8 [facility] Comment on above: Performed By: #### A NAD #### [facility] [address] [place] [address] Dr. Soo Donnelly Monocytes/100 WBC (Bld) 5.9 % Normal 1.7-12.[address] [facility] Comment on above: Performed By: #### A NAD #### [facility] [address] [place] [address] Dr. Soo Donnelly NEUT # 3.5 103/ul Normal 1.4-6.5 [facility] Comment on above: Performed By: #### A NAD #### [facility] [address] [place] [address] Dr. Soo Donnelly Neutrophils/100 WBC (Bld) 51.9 % Normal 43.0-75.0 [facility] Comment on above: Performed By: #### A NAD #### [facility] Laboratory [address] [place] [address] Dr. Soo Donnelly Platelet mean volume (Bld) [Entitic vol] 10.8 fL Normal 9.5-13.5 [facility] Comment on above: Performed By: #### A NAD #### [facility] Laboratory [address] [place] [address] Dr. Soo Donnelly PLT 220 103/ul Normal 150-450 [facility] Comment on above: Performed By: #### A NAD #### [facility] Laboratory [address] [place] [address] Dr. Soo Donnelly RBC 4.60 106/ul Normal 4.20-5.40 [facility] Comment on above: Performed By: #### A NAD #### [facility] Laboratory [address] [place] [address] Dr. Soo Donnelly WBC 6.8 103/ul Normal 4.0-11.0 [facility] Comment on above: Performed By: #### A NAD #### [facility] Laboratory [address] [place] [address] Dr. Soo Donnelly ER URINE PROFILEon 2 Bilirubin Ql (U) Negative Normal NEGATIVE [facility] Comment on above: Performed By: #### U LG, CRP #### [facility] Laboratory [address] [place] [address] Dr. Soo Donnelly Clarity (U) CLEAR Normal CLEAR [facility] Comment on above: Performed By: #### U LG, CRP #### [facility] [address] [place] [address] Dr. Soo Donnelly Color (U) LT. YELLOW Normal YELLOW [facility] Comment on above: Performed By: #### U LG, CRP #### [facility] Laboratory [address] [place] [address] Dr. Soo CORTEZ A micrscopic examination will be performed if indicated. Normal [facility] Comment on above: Performed By: #### U LG, CRP #### [facility] [address] [place] [address] Dr. Soo Donnelly Glucose Ql (U) Negative Normal NEGATIVE [facility] Comment on above: Performed By: #### U LG, CRP #### [facility] [address] [place] [address] Dr. Soo Donnelly Hemoglobin Ql (U) Negative Normal NEGATIVE [facility] Comment on above: Performed By: #### U LG, CRP #### [facility] [address] [place] [address] Dr. Soo Donnelly Ketones Ql (U) Negative Normal NEGATIVE [facility] Comment on above: Performed By: #### U LG, CRP #### [facility] Laboratory [address] [place] [address] Dr. Soo Donnelly LEUKOCYTES Negative Normal NEGATIVE [facility] Comment on above: Performed By: #### U LG, CRP #### [facility] [address] [place] [address] Dr. Soo Donnelly Nitrite Ql (U) Negative Normal NEGATIVE [facility] Comment on above: Performed By: #### U LG, CRP #### [facility] [address] [place] [address] Dr. Soo Donnelly pH (U) 6.0 [pH] Normal 5-9 [facility] Comment on above: Performed By: #### U LG, CRP #### [facility] Laboratory [address] [place] [address] Dr. Soo Donnelly SPEC GRAVITY 1.015 Normal 1.005-<=1.02 5 [facility] Comment on above: Performed By: #### U LG, CRP #### [facility] [address] [place] [address] Dr. Soo Donnelly UA PROTEIN Negative Normal NEGATIVE/ TRACE [facility] Comment on above: Performed By: #### U LG, CRP #### [facility] Laboratory [address] [address] [address] Soo Donnelly UR MICRO IND NOT INDICATED Normal [facility] Comment on above: Performed By: #### U LG, CRP #### [facility] [address] [address] [address] Soo Donnelly Urobilinogen Qn (U) 0.2 {Roma'U}/dL Normal 0.2 - 1. 0 [facility] Comment on above: Performed By: #### U LG, CRP #### [facility] [address] [address] [address] Soo Donnelly PROF CHEM 8 (BAS METB)on Anion gap [Moles/Vol] 10.2 mmol/L Normal [facility] Comment on above: Performed By: #### B MP #### [facility] Laboratory [address] [place] [address] Dr. Soo Donnelly Calcium [Mass/Vol] 8.7 mg/dL Normal 8.5-10.1 [facility] Comment on above: Performed By: #### B MP #### [facility] [address] [place] [address] Dr. Soo Donnelly Chloride [Moles/Vol] 103 mmol/L Normal 98-107 [facility] Comment on above: Performed By: #### B MP #### [facility] [address] [address] [address] Soo Donnelly CO2 [Moles/Vol] 27.9 mmol/L Normal 21.0-32.0 [facility] Comment on above: Performed By: #### B MP #### [facility] [address] [place] [address] Dr. Soo Donnelly Creatinine [Mass/Vol] 0.80 mg/dL Normal 0.55-1.02 [facility] Comment on above: Performed By: #### B MP #### [facility] [address] [place] [address] Dr. Soo Donnelly EGFR-AF TURKISH >60 Normal >=60 [facility] Comment on above: Performed By: #### B MP #### [facility] [address] [address] [address] Soo Donnelly EGFR-NON AF TURKISH >60 Normal >=60 [facility] Comment on above: Performed By: #### B MP #### [facility] [address] [address] [address] Soo Donnelly Glucose [Mass/Vol] 103 mg/dL Normal 74-106 [facility] Comment on above: Performed By: #### B MP #### [facility] [address] [address] [address] Soo Donnelly Potassium [Moles/Vol] 4.1 mmol/L Normal 3.5-5.1 [facility] Comment on above: Performed By: #### B MP #### [facility] [address] [address] [address] Soo Donnelly Sodium [Moles/Vol] 137 mmol/L Normal 136-145 [facility] Comment on above: Performed By: #### B MP #### [facility] [address] [address] [address] Soo Donnelly Urea nitrogen [Mass/Vol] 11.0 mg/dL Normal 7.0-18.0 [facility] Comment on above: Performed By: #### B MP #### [facility] [address] [address] [address] Soo Donnelly Urea nitrogen/Creatinine [Mass ratio] 13.8 mg/mg Normal [facility] Comment on above: Performed By: #### B MP #### [facility] [address] [address] [address] Soo Donnelly XR KUB 1 VIEWon [...] Date: 2022-09-18 12:12 Normal [facility] MG MAMM SCREEN 3D DEAN CADon 09-12-2022 MG MAMM SCREEN 3D DEAN CAD Patient: HORACIO KEATING Exam Date: 09/12/2022 : 1975 Gender:F Ordering : DR DELGADO MURILLO . Admission #: [id number] Family : Order #: [id number] CLICK HERE TO VIEW EXAM RADIOLOGY REPORT [...] ovarian cancer at age 77. LOCATION: [facility] BREAST COMPOSITION: Scattered areas fibroglandular density. [...] MD on 09/13/2022 at 07:46 Normal [facility] INSULINon 07-20-2022 Insulin 25.5 uIU/mL Critically high 2.6-24.9 [facility] Comment on above: Performed By: #### U LG, CRP #### [facility] [address] [address] [address] Soo Donnelly T4 LABCORPon 07-20-2022 T4 [Mass/Vol] 7.4 ug/dL Normal 4.5-12.[address] [facility] Comment on above: Performed By: #### A NAD #### [facility] [address] [place] [address] Dr. Soo Donnelly CBC W MANUAL DIFFon 07-19-20 ATYPICAL LYMPH # Normal [facility] Comment on above: Performed By: #### B UN, CREA #### [facility] [address] [place] [address] Dr. Soo Donnelly ATYPICAL LYMPH % Normal [facility] Comment on above: Performed By: #### B UN, CREA #### [facility] [address] [place] [address] Dr. Soo Donnelly BAND # Normal 0.0-0.3 [facility] Comment on above: Performed By: #### B UN, CREA #### [facility] [address] [place] [address] Dr. Soo Donnelly BAND % Normal 0-5 [facility] Comment on above: Performed By: #### B UN, CREA #### [facility] [address] [place] [address] Dr. Soo Donnelly BASOM # 0.00 103/ul Normal 0.00-0.10 [facility] Comment on above: Performed By: #### B UN, CREA #### [facility] [address] [place] [address] Dr. Soo Donnelly BASOM % 0.0 % Critically low 0.2-2.0 [facility] Comment on above: Performed By: #### B UN, CREA #### [facility] [address] [place] [address] Dr. Soo Donnelly BLAST # Normal [facility] Comment on above: Performed By: #### B UN, CREA #### [facility] [address] [place] [address] Dr. Soo Donnelly BLAST % Normal [facility] Comment on above: Performed By: #### B UN, CREA #### [facility] [address] [place] [address] Dr. Soo Donnelly CORRECTED WBC Normal 4.0-11.[address] [facility] Comment on above: Performed By: #### B UN, CREA #### [facility] [address] [address] [address] Soo Donnelly EOS # 0.31 103/ul Normal 0.00-0.70 [facility] Comment on above: Performed By: #### B UN, CREA #### [facility] [address] [address] [address] Soo Donnelly EOS% 2.0 % Normal 0.9-7.0 [facility] Comment on above: Performed By: #### B UN, CREA #### [facility] [address] [address] [address] Soo Donnelly HCT 41.6 % Normal 36.0-48.0 [facility] Comment on above: Performed By: #### B UN, CREA #### [facility] [address] [place] [address] Dr. Soo Donnelly HGB 13.8 g/dl Normal 12.0-16.0 [facility] Comment on above: Performed By: #### B UN, CREA #### [facility] [address] [place] [address] Dr. Soo Donnelly LYMPHM # 5.27 103/ul Critically high 1.20-3.80 [facility] Comment on above: Performed By: #### B UN, CREA #### [facility] [address] [place] [address] Dr. Soo Donnelly LYMPHM% 34.0 % Normal 20.5-60.0 [facility] Comment on above: Performed By: #### B UN, CREA #### [facility] [address] [place] [address] Dr. Soo Donnelly MCH 31.5 pg Normal 26.7-34.0 [facility] Comment on above: Performed By: #### B UN, CREA #### [facility] [address] [place] [address] Dr. Soo Donnelly MCHC 33.2 g/dl Normal 29.9-35.2 [facility] Comment on above: Performed By: #### B UN, CREA #### [facility] [address] [place] [address] Dr. Soo Donnelly MCV 95.0 fL Normal 81.0-99.0 [facility] Comment on above: Performed By: #### B UN, CREA #### [facility] [address] [place] [address] Dr. Soo Donnelly METAMYELOCYTE # Normal [facility] Comment on above: Performed By: #### B UN, CREA #### [facility] [address] [place] [address] Dr. Soo Donnelly METAMYELOCYTE % Normal [facility] Comment on above: Performed By: #### B UN, CREA #### [facility] [address] [place] [address] Dr. Soo Donnelly MONOM# 0.93 103/ul Critically high 0.30-0.80 [facility] Comment on above: Performed By: #### B UN, CREA #### [facility] [address] [place] [address] Dr. Soo Donnelly MONOM% 6.0 % Normal 1.7-12.0 [facility] Comment on above: Performed By: #### B UN, CREA #### [facility] [address] [place] [address] Dr. Soo Donnelly MPV 10.1 fL Normal 9.5-13.5 [facility] Comment on above: Performed By: #### B UN, CREA #### [facility] [address] [place] [address] Dr. Soo Donnelly MYELOCYTE # Normal [facility] Comment on above: Performed By: #### B UN, CREA #### [facility] [address] [place] [address] Dr. Soo Donnelly MYELOCYTE % Normal [facility] Comment on above: Performed By: #### B UN, CREA #### [facility] [address] [place] [address] Dr. Soo Donnelly NRBC Normal [facility] Comment on above: Performed By: #### B UN, CREA #### [facility] [address] [place] [address] Dr. Soo Donnelly PLT 260 103/ul Normal 150-450 [facility] Comment on above: Performed By: #### B UN, CREA #### [facility] [address] [address] [address] Soo Donnelly RBC 4.38 106/ul Normal 4.20-5.40 [facility] Comment on above: Performed By: #### B UN, CREA #### [facility] [address] [address] [address] Soo Donnelly RDW 12.5 % Normal 11.0-15.0 [facility] Comment on above: Performed By: #### B UN, CREA #### [facility] [address] [address] [address] Soo Donnelly SEG # 8.99 103/ul Critically high 1.40-6.50 [facility] Comment on above: Performed By: #### B UN, CREA #### [facility] [address] [address] [address] Soo Donnelly SEG % 58.0 % Normal 43.0-75.0 [facility] Comment on above: Performed By: #### B UN, CREA #### [facility] [address] [address] [address] Soo Donnelly WBC 15.5 103/ul Critically high 4.0-11.0 [facility] Comment on above: Performed By: #### B UN, CREA #### [facility] [address] [address] [address] Soo Donnelly FREE T3on 07-19-2022 FREE T3 2.62 pg/mlL Normal 2.18-3.98 [facility] Comment on above: Performed By: #### U LG, CRP #### [facility] [address] [address] [address] Soo Donnelly GLYCOHEMOGLOBIN A1Con 2021 ADA RECOMMENDATION SEE BELOW Normal [facility] Comment on above: Result Comment: ADA RECOMMENDED LIMIT 4.0 - 6.0 ADA THERAPEUTIC TARGET < 7.0 ACTION SUGGESTED > 7.0 Performed By: #### U LG, CRP #### [facility] [address] [address] [address] Soo Donnelly Glucose [Mass/Vol] 137 mg/dL Normal [facility] Comment on above: Performed By: #### U LG, CRP #### [facility] [address] [address] [address] Soo Donnelly HbA1c (Bld) [Mass fraction] 6.4 % Critically high 4.5-6.2 [facility] Comment on above: Performed By: #### U LG, CRP #### [facility] [address] [address] [address] Soo Donnelly LIPID PROFILEon 07-19-2022 CHOL-HDL RATIO NORM SEE BELOW Normal [facility] Comment on above: Result Comment: 3.3 - 4.4 LOW RISK 4.4 - 7.1 AVERAGE RISK 7.1 - 11.0 MODERATE RISK >11.0 HIGH RISK Performed By: #### U LG, CRP #### [facility] [address] [address] [address] Soo Donnelly Cholesterol [Mass/Vol] 226 mg/dL Critically high <=200 [facility] Comment on above: Performed By: #### U LG, CRP #### [facility] [address] [address] [address] Soo Donnelly Cholesterol in HDL [Mass/Vol] 33 mg/dL Critically low 40-60 [facility] Comment on above: Performed By: #### U LG, CRP #### [facility] [address] [address] [address] Soo Donnelly Cholesterol in LDL [Mass/Vol] 135.2 mg/dL Normal [facility] Comment on above: Performed By: #### U LG, CRP #### [facility] [address] [address] [address] Soo Donnelly Cholesterol.total/Mirta sterol in HDL [Mass ratio] 6.8 {ratio} Normal [facility] Comment on above: Performed By: #### U LG, CRP #### [facility] [address] [address] [address] Soo Donnelly HDL NORMAL > or = 60 mg/dl - LO W CARDIOVASCULAR RISK <40 mg/dl - HIGH CARDIOVASCULAR RISK Normal [facility] Comment on above: Performed By: #### U LG, CRP #### [facility] [address] [address] [address] Soo Donnelly LDL CALC NORMAL SEE BELOW Normal [facility] Comment on above: Result Comment: <100 mg/dl OPTIMAL 100 - 129 mg/dl NEAR OR ABOVE OPTIMAL 130 - 159 mg/dl BORDERLINE HIGH 160 - 189 mg/dl HIGH >190 mg/dl VERY HIGH Performed By: #### U LG, CRP #### [facility] [address] [address] [address] Soo Donnelly Triglyceride [Mass/Vol] 289 mg/dL Critically high <=150 [facility] Comment on above: Performed By: #### U LG, CRP #### [facility] [address] [address] [address] Soo Donnelly VLDL CALC 57.8 mg/dL Normal [facility] Comment on above: Performed By: #### U LG, CRP #### [facility] [address] [address] [address] Soo Donnelly PROF 14(COMP METB)on 022 Albumin [Mass/Vol] 3.2 g/dL Critically low 3.4-5.0 [facility] Comment on above: Performed By: #### U LG, CRP #### [facility] [address] [address] [address] Soo Donnelly Albumin/Globulin [Mass ratio] 1.1 {ratio} Normal [facility] Comment on above: Performed By: #### U LG, CRP #### [facility] [address] [address] [address] Soo Donnelly ALP [Catalytic activity/Vol] 41 U/L Critically low 46-116 [facility] Comment on above: Performed By: #### U LG, CRP #### [facility] [address] [address] [address] Soo Donnelly ALT [Catalytic activity/Vol] 46 U/L Normal 14-59 [facility] Comment on above: Performed By: #### U LG, CRP #### [facility] [address] [address] [address] Soo Donnelly Anion gap [Moles/Vol] 9.3 mmol/L Normal [facility] Comment on above: Performed By: #### U LG, CRP #### [facility] [address] [address] [address] Soo Donnelly AST [Catalytic activity/Vol] 18 U/L Normal 15-37 [facility] Comment on above: Performed By: #### U GL, CRP #### [facility] [address] [address] [address] Soo Donnelly Bilirubin [Mass/Vol] 0.7 mg/dL Normal 0.2-1.0 [facility] Comment on above: Performed By: #### U LG, CRP #### [facility] [address] [address] [address] Soo Donnelly Calcium [Mass/Vol] 8.1 mg/dL Critically low 8.5-10.1 [facility] Comment on above: Performed By: #### U LG, CRP #### [facility] [address] [address] [address] Soo Donnelly Chloride [Moles/Vol] 101 mmol/L Normal 98-107 [facility] Comment on above: Performed By: #### U LG, CRP #### [facility] [address] [address] [address] Soo Donnelly CO2 [Moles/Vol] 31.1 mmol/L Normal 21.0-32.0 [facility] Comment on above: Performed By: #### U LG, CRP #### [facility] [address] [address] [address] Soo Donnelly Creatinine [Mass/Vol] 0.77 mg/dL Normal 0.55-1.02 [facility] Comment on above: Performed By: #### U LG, CRP #### [facility] [address] [address] [address] Soo Donnelly EGFR-AF TURKISH >60 Normal >=60 [facility] Comment on above: Performed By: #### U LG, CRP #### [facility] [address] [address] [address] Soo Donnelly EGFR-NON AF TURKISH >60 Normal >=60 [facility] Comment on above: Performed By: #### U LG, CRP #### [facility] [address] [address] [address] Soo Donnelly Globulin (S) [Mass/Vol] 3.0 g/dL Normal [facility] Comment on above: Performed By: #### U LG, CRP #### [facility] [address] [address] [address] Soo Donnelly Glucose [Mass/Vol] 104 mg/dL Normal 74-106 [facility] Comment on above: Performed By: #### U LG, CRP #### [facility] [address] [address] [address] Soo Donnelly Potassium [Moles/Vol] 3.4 mmol/L Critically low 3.5-5.1 [facility] Comment on above: Performed By: #### U LG, CRP #### [facility] [address] [address] [address] Soo Donnelly Protein [Mass/Vol] 6.2 g/dL Critically low 6.4-8.2 [facility] Comment on above: Performed By: #### U LG, CRP #### [facility] [address] [address] [address] Soo Donnelly Sodium [Moles/Vol] 138 mmol/L Normal 136-145 [facility] Comment on above: Performed By: #### U LG, CRP #### [facility] [address] [address] [address] Soo Donnelly Urea nitrogen [Mass/Vol] 16.0 mg/dL Normal 7.0-18.0 [facility] Comment on above: Performed By: #### U LG, CRP #### [facility] [address] [address] [address] Soo Donnelly Urea nitrogen/Creatinine [Mass ratio] 20.8 mg/mg Normal [facility] Comment on above: Performed By: #### U LG, CRP #### [facility] [address] [place] [address] Dr. Soo Donnelly TSHon 07-19-2022 TSH 3.262 uIU/mL Normal 0.358-3.740 [facility] Comment on above: Performed By: #### U LG, CRP #### [facility] [address] [place] [address] Dr. Soo Donnelly CBC AUTO DIFFon 05-18-2022 BASO # 0.0 103/ul Normal 0.0-0.1 [facility] Comment on above: Performed By: #### U LG, CRP #### [facility] [address] [place] [address] Dr. Soo Donnelly Basophils/100 WBC (Bld) 0.2 % Normal 0.2-2.[address] [facility] Comment on above: Performed By: #### U LG, CRP #### [facility] [address] [place] [address] Dr. Soo Donnelly EO # 0.0 103/ul Normal 0.0-0.7 [facility] Comment on above: Performed By: #### U LG, CRP #### [facility] [address] [place] [address] Dr. Soo Donnelly Eosinophils/100 WBC (Bld) 0.2 % Critically low 0.9-7.0 [facility] Comment on above: Performed By: #### U LG, CRP #### [facility] [address] [place] [address] Dr. Soo Donnelly Erythrocyte distribution width (RBC) [Ratio] 12.8 % Normal 11.0-15.0 [facility] Comment on above: Performed By: #### U LG, CRP #### [facility] [address] [place] [address] Dr. Soo Donnelly Hematocrit (Bld) [Volume fraction] 35.7 % Critically low 36.0-48.0 [facility] Comment on above: Performed By: #### U LG, CRP #### [facility] [address] [place] [address] Dr. Soo Donnelly Hemoglobin (Bld) [Mass/Vol] 11.5 g/dL Critically low 12.0-16.0 [facility] Comment on above: Performed By: #### U LG, CRP #### [facility] [address] [place] [address] Dr. Soo Donnelly IG # 0.07 10e3/ul Critically high 0.00-0.03 [facility] Comment on above: Performed By: #### U LG, CRP #### [facility] [address] [place] [address] Dr. Soo Donnelly IG % 0.5 % Normal 0.0-0.5 [facility] Comment on above: Performed By: #### U LG, CRP #### [facility] [address] [place] [address] Dr. Soo Donnelly LYMPH # 4.1 103/ul Critically high 1.2-3.8 [facility] Comment on above: Performed By: #### U LG, CRP #### [facility] [address] [place] [address] Dr. Soo Donnelly Lymphocytes/100 WBC (Bld) 28.3 % Normal 20.5-60.0 [facility] Comment on above: Performed By: #### U LG, CRP #### [facility] [address] [place] [address] Dr. Soo Donnelly MANUAL DIFF REQ NO Normal [facility] Comment on above: Performed By: #### U LG, CRP #### [facility] [address] [place] [address] Dr. Soo Donnelly MCH (RBC) [Entitic mass] 31.7 pg Normal 26.7-34.0 [facility] Comment on above: Performed By: #### U LG, CRP #### [facility] [address] [place] [address] Dr. Soo Donnelly MCHC (RBC) [Mass/Vol] 32.2 g/dL Normal 29.9-35.2 [facility] Comment on above: Performed By: #### U LG, CRP #### [facility] [address] [place] [address] Dr. Soo Donnelly MCV (RBC) [Entitic vol] 98.3 fL Normal 81.0-99.[address] [facility] Comment on above: Performed By: #### U LG, CRP #### [facility] [address] [place] [address] Dr. Soo Donnelly MONO # 0.8 103/ul Normal 0.3-0.8 [facility] Comment on above: Performed By: #### U LG, CRP #### [facility] [address] [place] [address] Dr. Soo Donnelly Monocytes/100 WBC (Bld) 5.6 % Normal 1.7-12.[address] [facility] Comment on above: Performed By: #### U LG, CRP #### [facility] [address] [place] [address] Dr. Soo Donnelly NEUT # 9.4 103/ul Critically high 1.4-6.5 [facility] Comment on above: Performed By: #### U LG, CRP #### [facility] [address] [place] [address] Dr. Soo Donnelly Neutrophils/100 WBC (Bld) 65.2 % Normal 43.0-75.0 [facility] Comment on above: Performed By: #### U LG, CRP #### [facility] [address] [place] [address] Dr. Soo Donnelly Platelet mean volume (Bld) [Entitic vol] 10.8 fL Normal 9.5-13.5 [facility] Comment on above: Performed By: #### U LG, CRP #### [facility] [address] [place] [address] Dr. Soo Donnelly PLT 191 103/ul Normal 150-450 [facility] Comment on above: Performed By: #### U LG, CRP #### [facility] [address] [place] [address] Dr. Soo Donnelly RBC 3.63 106/ul Critically low 4.20-5.40 [facility] Comment on above: Performed By: #### U LG, CRP #### [facility] [address] [address] [address] Soo Donnelly WBC 14.4 103/ul Critically high 4.0-11.0 [facility] Comment on above: Performed By: #### U LG, CRP #### [facility] [address] [place] [address] Dr. Soo Donnelly BUNon 05-17-2022 Urea nitrogen [Mass/Vol] 8.0 mg/dL Normal 7.0-18.0 [facility] Comment on above: Performed By: #### B UN, CREA #### [facility] [address] [address] [address] Soo Donnelly CBC AUTO DIFFon 05-17-2022 BASO # 0.0 103/ul Normal 0.0-0.1 [facility] Comment on above: Performed By: #### U LG, CRP #### [facility] [address] [place] [address] Dr. Soo Donnelly Basophils/100 WBC (Bld) 0.1 % Critically low 0.2-2.0 [facility] Comment on above: Performed By: #### U LG, CRP #### [facility] [address] [place] [address] Dr. Soo Donnelly EO # 0.0 103/ul Normal 0.0-0.7 [facility] Comment on above: Performed By: #### U LG, CRP #### [facility] [address] [place] [address] Dr. Soo Donnelly Eosinophils/100 WBC (Bld) 0.0 % Critically low 0.9-7.0 [facility] Comment on above: Performed By: #### U LG, CRP #### [facility] [address] [place] [address] Dr. Soo Donnelly Erythrocyte distribution width (RBC) [Ratio] 12.5 % Normal 11.0-15.0 [facility] Comment on above: Performed By: #### U LG, CRP #### [facility] [address] [place] [address] Dr. Soo Donnelly Hematocrit (Bld) [Volume fraction] 38.5 % Normal 36.0-48.0 [facility] Comment on above: Performed By: #### U LG, CRP #### [facility] [address] [address] [address] Soo Donnelly Hemoglobin (Bld) [Mass/Vol] 13.0 g/dL Normal 12.0-16.0 [facility] Comment on above: Performed By: #### U LG, CRP #### [facility] [address] [address] [address] Soo Donnelly IG # 0.16 10e3/ul Critically high 0.00-0.03 [facility] Comment on above: Performed By: #### U LG, CRP #### [facility] [address] [place] [address] Dr. Soo Donnelly IG % 0.7 % Critically high 0.0-0.5 [facility] Comment on above: Performed By: #### U LG, CRP #### [facility] [address] [place] [address] Dr. Soo Donnelly LYMPH # 3.0 103/ul Normal 1.2-3.8 [facility] Comment on above: Performed By: #### U LG, CRP #### [facility] [address] [place] [address] Dr. Soo Donnelly Lymphocytes/100 WBC (Bld) 12.2 % Critically low 20.5-60.0 [facility] Comment on above: Performed By: #### U LG, CRP #### [facility] [address] [place] [address] Dr. Soo Donnelly MANUAL DIFF REQ NO Normal [facility] Comment on above: Performed By: #### U LG, CRP #### [facility] [address] [address] [address] Soo Donnelly MCH (RBC) [Entitic mass] 32.4 pg Normal 26.7-34.0 [facility] Comment on above: Performed By: #### U GL, CRP #### [facility] [address] [place] [address] Dr. Soo Donnelly MCHC (RBC) [Mass/Vol] 33.8 g/dL Normal 29.9-35.2 [facility] Comment on above: Performed By: #### U LG, CRP #### [facility] [address] [place] [address] Dr. Soo Donnelly MCV (RBC) [Entitic vol] 96.0 fL Normal 81.0-99.[address] [facility] Comment on above: Performed By: #### U LG, CRP #### [facility] [address] [place] [address] Dr. Soo Donnelly MONO # 1.3 103/ul Critically high 0.3-0.8 [facility] Comment on above: Performed By: #### U LG, CRP #### [facility] [address] [place] [address] Dr. Soo Donnelly Monocytes/100 WBC (Bld) 5.4 % Normal 1.7-12.[address] [facility] Comment on above: Performed By: #### U LG, CRP #### [facility] [address] [place] [address] Dr. Soo Donnelly NEUT # 19.8 103/ul Critically high 1.4-6.5 [facility] Comment on above: Performed By: #### U LG, CRP #### [facility] [address] [place] [address] Dr. Soo Donnelly Neutrophils/100 WBC (Bld) 81.6 % Critically high 43.0-75.0 [facility] Comment on above: Performed By: #### U LG, CRP #### [facility] [address] [place] [address] Dr. Soo Donnelly Platelet mean volume (Bld) [Entitic vol] 10.5 fL Normal 9.5-13.5 [facility] Comment on above: Performed By: #### U LG, CRP #### [facility] [address] [place] [address] Dr. Soo Donnelly PLT 253 103/ul Normal 150-450 [facility] Comment on above: Performed By: #### U LG, CRP #### [facility] [address] [place] [address] Dr. Soo Donnelly RBC 4.01 106/ul Critically low 4.20-5.40 [facility] Comment on above: Performed By: #### U LG, CRP #### [facility] [address] [address] [address] Soo Donnelly WBC 24.3 103/ul Critically high 4.0-11.0 [facility] Comment on above: Performed By: #### U LG, CRP #### [facility] [address] [address] [address] Soo Donnelly BASO # 0.0 103/ul Normal 0.0-0.1 [facility] Comment on above: Performed By: #### U LG, CRP #### [facility] [address] [place] [address] Dr. Soo Donnelly Basophils/100 WBC (Bld) 0.1 % Critically low 0.2-2.0 [facility] Comment on above: Performed By: #### U LG, CRP #### [facility] [address] [address] [address] Soo Donnelly EO # 0.0 103/ul Normal 0.0-0.7 [facility] Comment on above: Performed By: #### U LG, CRP #### [facility] [address] [place] [address] Dr. Soo Donnelly Eosinophils/100 WBC (Bld) 0.0 % Critically low 0.9-7.0 [facility] Comment on above: Performed By: #### U LG, CRP #### [facility] [address] [place] [address] Dr. Soo Donnelly Erythrocyte distribution width (RBC) [Ratio] 12.3 % Normal 11.0-15.0 [facility] Comment on above: Performed By: #### U LG, CRP #### [facility] [address] [place] [address] Dr. Soo Donnelly Hematocrit (Bld) [Volume fraction] 41.2 % Normal 36.0-48.0 [facility] Comment on above: Performed By: #### U LG, CRP #### [facility] [address] [address] [address] Soo Donnelly Hemoglobin (Bld) [Mass/Vol] 13.5 g/dL Normal 12.0-16.0 [facility] Comment on above: Performed By: #### U LG, CRP #### [facility] [address] [address] [address] Soo Donnelly IG # 0.11 10e3/ul Critically high 0.00-0.03 [facility] Comment on above: Performed By: #### U LG, CRP #### [facility] [address] [place] [address] Dr. Soo Donnelly IG % 0.5 % Normal 0.0-0.5 [facility] Comment on above: Performed By: #### U LG, CRP #### [facility] [address] [place] [address] Dr. Soo Donnelly LYMPH # 1.6 103/ul Normal 1.2-3.8 [facility] Comment on above: Performed By: #### U LG, CRP #### [facility] [address] [place] [address] Dr. Soo Donnelly Lymphocytes/100 WBC (Bld) 7.8 % Critically low 20.5-60.0 [facility] Comment on above: Performed By: #### U LG, CRP #### [facility] [address] [place] [address] Dr. Soo Donnelly MANUAL DIFF REQ NO Normal [facility] Comment on above: Performed By: #### U LG, CRP #### [facility] [address] [address] [address] Soo Donnelly MCH (RBC) [Entitic mass] 31.8 pg Normal 26.7-34.0 [facility] Comment on above: Performed By: #### U LG, CRP #### [facility] [address] [place] [address] Dr. Soo Donnelly MCHC (RBC) [Mass/Vol] 32.8 g/dL Normal 29.9-35.2 [facility] Comment on above: Performed By: #### U LG, CRP #### [facility] [address] [address] [address] Soo Donnelly MCV (RBC) [Entitic vol] 96.9 fL Normal 81.0-99.[address] [facility] Comment on above: Performed By: #### U LG, CRP #### [facility] [address] [place] [address] Dr. Soo Donnelly MONO # 0.4 103/ul Normal 0.3-0.8 [facility] Comment on above: Performed By: #### U LG, CRP #### [facility] [address] [place] [address] Dr. Soo Donnelly Monocytes/100 WBC (Bld) 2.0 % Normal 1.7-12.[address] [facility] Comment on above: Performed By: #### U LG, CRP #### [facility] [address] [place] [address] Dr. Soo Donnelly NEUT # 18.1 103/ul Critically high 1.4-6.5 [facility] Comment on above: Performed By: #### U LG, CRP #### [facility] [address] [place] [address] Dr. Soo Donnelly Neutrophils/100 WBC (Bld) 89.6 % Critically high 43.0-75.0 [facility] Comment on above: Performed By: #### U LG, CRP #### [facility] [address] [place] [address] Dr. Soo Donnelly Platelet mean volume (Bld) [Entitic vol] 11.0 fL Normal 9.5-13.5 [facility] Comment on above: Performed By: #### U LG, CRP #### [facility] [address] [place] [address] Dr. Soo Donnelly PLT 223 103/ul Normal 150-450 [facility] Comment on above: Performed By: #### U LG, CRP #### [facility] [address] [place] [address] Dr. Soo Donnelly RBC 4.25 106/ul Normal 4.20-5.40 [facility] Comment on above: Performed By: #### U LG, CRP #### [facility] [address] [address] [address] Soo Donnelly WBC 20.2 103/ul Critically high 4.0-11.0 [facility] Comment on above: Performed By: #### U LG, CRP #### [facility] [address] [address] [address] Soo Donnelly CREATININEon 05-17-2022 Creatinine [Mass/Vol] 0.97 mg/dL Normal 0.55-1.02 [facility] Comment on above: Performed By: #### B UN, CREA #### [facility] [address] [address] [address] Soo Donnelly EGFR-AF TURKISH >60 Normal >=60 [facility] Comment on above: Performed By: #### B UN, CREA #### [facility] [address] [address] [address] Soo Donnelly EGFR-NON AF TURKISH >60 Normal >=60 [facility] Comment on above: Performed By: #### B UN, CREA #### [facility] [address] [address] [address] Soo Donnelly CTA CHEST WO W [...] LUZ ELENA SAUCEDA Date: 2022-05-17 16:40 Normal [facility] XR CHEST 2 Von 05-17-2022 XR [...] SAMI JONES Date: 2022-05-17 16:10 Normal [facility] CBC AUTO DIFFon 05-16-2022 BASO # 0.1 103/ul Normal 0.0-0.1 [facility] Comment on above: Performed By: #### B , CREA #### [facility] [address] [address] [address] Soo Donnelly Basophils/100 WBC (Bld) 0.5 % Normal 0.2-2.[address] [facility] Comment on above: Performed By: #### B , CREA #### [facility] [address] [address] [address] Soo Donnelly EO # 0.1 103/ul Normal 0.0-0.7 [facility] Comment on above: Performed By: #### B UN, CREA #### [facility] [address] [address] [address] Soo Donnelly Eosinophils/100 WBC (Bld) 1.0 % Normal 0.9-7.0 [facility] Comment on above: Performed By: #### B , CREA #### [facility] [address] [address] [address] Soo Donnelly Erythrocyte distribution width (RBC) [Ratio] 12.2 % Normal 11.0-15.0 [facility] Comment on above: Performed By: #### B UN, CREA #### [facility] [address] [place] [address] Dr. Soo Donnelly Hematocrit (Bld) [Volume fraction] 41.2 % Normal 36.0-48.0 [facility] Comment on above: Performed By: #### B UN, CREA #### [facility] [address] [place] [address] Dr. Soo Donnelly Hemoglobin (Bld) [Mass/Vol] 13.9 g/dL Normal 12.0-16.0 [facility] Comment on above: Performed By: #### B UN, CREA #### [facility] [address] [place] [address] Dr. Soo Donnelly IG # 0.04 10e3/ul Critically high 0.00-0.03 [facility] Comment on above: Performed By: #### B UN, CREA #### [facility] [address] [place] [address] Dr. Soo Donnelly IG % 0.4 % Normal 0.0-0.5 [facility] Comment on above: Performed By: #### B UN, CREA #### [facility] [address] [place] [address] Dr. Soo Donnelly LYMPH # 3.5 103/ul Normal 1.2-3.8 [facility] Comment on above: Performed By: #### B UN, CREA #### [facility] [address] [place] [address] Dr. Soo Donnelly Lymphocytes/100 WBC (Bld) 35.3 % Normal 20.5-60.0 [facility] Comment on above: Performed By: #### B UN, CREA #### [facility] [address] [place] [address] Dr. Soo Donnelly MANUAL DIFF REQ NO Normal [facility] Comment on above: Performed By: #### B UN, CREA #### [facility] [address] [place] [address] Dr. Soo Donnelly MCH (RBC) [Entitic mass] 31.7 pg Normal 26.7-34.0 [facility] Comment on above: Performed By: #### B UN, CREA #### [facility] [address] [place] [address] Dr. Soo Donnelly MCHC (RBC) [Mass/Vol] 33.7 g/dL Normal 29.9-35.2 [facility] Comment on above: Performed By: #### B UN, CREA #### [facility] [address] [place] [address] Dr. Soo Donnelly MCV (RBC) [Entitic vol] 94.1 fL Normal 81.0-99.[address] [facility] Comment on above: Performed By: #### B UN, CREA #### [facility] [address] [place] [address] Dr. Soo Donnelly MONO # 0.5 103/ul Normal 0.3-0.8 [facility] Comment on above: Performed By: #### B UN, CREA #### [facility] [address] [place] [address] Dr. Soo Donnelly Monocytes/100 WBC (Bld) 5.4 % Normal 1.7-12.[address] [facility] Comment on above: Performed By: #### B UN, CREA #### [facility] [address] [place] [address] Dr. Soo Donnelly NEUT # 5.6 103/ul Normal 1.4-6.5 [facility] Comment on above: Performed By: #### B UN, CREA #### [facility] [address] [place] [address] Dr. Soo Donnelly Neutrophils/100 WBC (Bld) 57.4 % Normal 43.0-75.0 [facility] Comment on above: Performed By: #### B UN, CREA #### [facility] [address] [place] [address] Dr. Soo Donnelly Platelet mean volume (Bld) [Entitic vol] 10.3 fL Normal 9.5-13.5 [facility] Comment on above: Performed By: #### B UN, CREA #### [facility] [address] [address] [address] Soo Donnelly PLT 235 103/ul Normal 150-450 [facility] Comment on above: Performed By: #### B UN, CREA #### [facility] [address] [address] [address] Soo Donnelly RBC 4.38 106/ul Normal 4.20-5.40 [facility] Comment on above: Performed By: #### B UN, CREA #### [facility] [address] [address] [address] Soo Donnelly WBC 9.8 103/ul Normal 4.0-11.0 [facility] Comment on above: Performed By: #### B UN, CREA #### [facility] [address] [place] [address] Dr. Soo Donnelly PREG QUANT HCGon 05-16-2022 HCG QUANT <1 Normal [facility] Comment on above: Performed By: #### U LG, CRP #### [facility] [address] [place] [address] Dr. Soo Donnelly HCG RANGE SEE BELOW Normal [facility] Comment on above: Result Comment: 5-50 0-1 WEEK 40-300 1-2 WEEKS 100-1,000 2-3 WEEKS 500-6,000 3-4 WEEKS 5,000-200,000 1-2 MONTHS 10,000-100,000 2-3 MONTHS 3,000-50,000 2ND TRIMESTER 1,000-50,000 3RD TRIMESTER Performed By: #### U LG, CRP #### [facility] [address] [place] [address] Dr. Soo Donnelly Covid-19 PCR (CVDTBH)on 05-01 SARS-CoV-2 (COVID-19) RNA NOLA+probe Ql (Unsp spec) Not detected Normal NOT DETECTED [facility] Comment on above: Result Comment: This test is not yet approved or cleared by the [place] FDA. When there are no FDA-approved or cleared tests available, and other criteria are met, FDA can make tests available under an emergency access mechanism called an Emergency Use Authorization (EUA). The EUA for this test is supported by the [place] of Health and Human Service's (HHS's) declaration [...] SARS-CoV-2. Performed By: #### C VDTBH #### [facility] [address] [place] [address] Dr. Soo Donnelly TYPE AND SCREENon 05-13-2022 TYPE AND SCREEN Negative Normal [facility] Comment on above: Performed By: #### B UN, CREA #### [facility] [address] [place] [address] Dr. Soo Donnelly PAP ACOG PANEL 2: 30 to 65on 05-07-2022 . . Normal [facility] Comment on above: Result Comment: Perf ormed at: WB Performed By: #### [id number] #### [facility] [address] [place] [address] Dr. Soo Donnelly Age Gdln ACOG Testing 30-65 Normal [facility] Comment on above: Performed By: #### [id number] #### [facility] [address] [place] [address] Dr. Soo Donnelly DIAGNOSIS: Comment Normal [facility] Comment on above: Result Comment: NEGA TIVE FOR INTRAEPITHELIAL LESION OR MALIGNANCY. Performed at: WB Performed By: #### [id number] #### [facility] [address] [place] [address] Dr. Soo Donnelly HPV Aptima Negative Normal Negative [facility] Comment on above: Result Comment: This nucleic acid amplification test detects fourteen high-risk HPV types (16,18,31,33,35,39,45,51,52,56,58,59,66,68) without differentiation. Performed at: =G Performed By: #### [id number] #### [facility] [address] [place] [address] Dr. Soo Donnelly Methodology: Comment Normal [facility] Comment on above: Result Comment: This liquid based ThinPrep(R) pap test was screened with the use of an image guided system. Performed at: WB Performed By: #### [id number] #### [facility] [address] [place] [address] Dr. Soo Donnelly Note: Comment Normal [facility] Comment on above: Result Comment: The Pap smear is a screening test designed to aid in the detection of premalignant and malignant conditions of the uterine cervix. It is not a diagnostic procedure and should not be used as the sole means of detecting cervical cancer. Both false-positive and false-negative reports do occur. . Performed at: WB Performed By: #### [id number] #### [facility] [address] [place] [address] Dr. Soo Donnelly Performed by: Comment Normal [facility] Comment on above: Result Comment: Angel Rdo, Metal Technician (ASCP) Performed at: WB Performed By: #### [id number] #### [facility] [address] [place] [address] Dr. Soo Donnelly Specimen adequacy: Comment Normal [facility] Comment on above: Result Comment: Sati sfactory for evaluation. Endocervical and/or squamous metaplastic cells (endocervical component) are present. Performed at: WB Performed By: #### [id number] #### [facility] [address] [place] [address] Dr. Soo Donnelly ROSS by IFAon 02-21-2022 Antinuclear Antibodies, IFA Negative [facility] Comment on above: Result Comment: Nega tive <1:80 Borderline 1:80 Positive >1:80 ICAP nomenclature: AC-0 For more information about Hep-2 cell patterns use ANApatterns.org, the official website for the International Consensus on Antinuclear Antibody (ROSS) Patterns (ICAP). Performed By: #### U LG, CRP #### [facility] [address] [place] [address] Dr. Soo Donnlely ROSS DIRECTon 02-20-2022 ROSS Direct Negative Normal Negative [facility] Comment on above: Performed By: #### A NAD #### [facility] [address] [place] [address] Dr. Soo Donnelly ANTISTREPTOLYSIN O AB (ASO)o n 02-20-2022 Antistreptolysin O Ab 115.3 IU/mL Normal 0.0-200.0 [facility] Comment on above: Performed By: #### B UN, CREA #### [facility] [address] [place] [address] Dr. Soo Donnelly C3 and C4 COMPLEMENTon 02-20 Complement C3, Serum 137 mg/dL Normal 82-167 [facility] Comment on above: Performed By: #### U LG, CRP #### [facility] [address] [place] [address] Dr. Soo Donnelly Complement C4, Serum 23 mg/dL Normal 12-38 [facility] Comment on above: Performed By: #### U LG, CRP #### [facility] [address] [place] [address] Dr. Soo Donnelly SLE PROFILE Aon 02-20-2022 Anti-DNA (DS) Ab Qn <1 Normal 0-9 [facility] Comment on above: Result Comment: Nega tive <5 Equivocal 5 - 9 Positive >9 Performed By: #### S YARI #### [facility] [address] [place] [address] Dr. Soo Donnelly Antichromatin Antibodies <0.2 Normal 0.0-0.9 [facility] Comment on above: Performed By: #### S YARI #### [facility] [address] [place] [address] Dr. Soo Donnelly RA Latex Turbid. <10.0 Normal <14.0 [facility] Comment on above: Performed By: #### S YARI #### [facility] [address] [place] [address] Dr. Soo Donnelly SERVICE PLANNER Antibodies <0.2 Normal 0.0-0.9 [facility] Comment on above: Performed By: #### S YARI #### [facility] [address] [address] [address] Soo Donnelly Sjogren'neel Anti-SS-A <0.2 Normal 0.0-0.9 [facility] Comment on above: Performed By: #### S YARI #### [facility] [address] [address] [address] Soo Donnelly Sjogren's Anti-SS-B <0.2 Normal 0.0-0.9 [facility] Comment on above: Performed By: #### S YARI #### [facility] [address] [address] [address] Soo Donnelly Spann Antibodies <0.2 Normal 0.0-0.9 [facility] Comment on above: Performed By: #### S YARI #### [facility] [address] [place] [address] Dr. Soo Donnelly CRPon 02-19-2022 CRP [Mass/Vol] mg/L Normal <=1.0 [facility] Comment on above: Performed By: #### U LG, CRP #### [facility] [address] [place] [address] Dr. Soo Donnelly URIC ACID SERUMon 02-19-2022 Urate [Mass/Vol] 4.7 mg/dL Normal 2.5-6.2 [facility] Comment on above: Performed By: #### U LG, CRP #### [facility] [address] [place] [address] Dr. Soo Donnelly XR CSPINE MIN 4 [...] ABIGAIL SHEEHAN Date: 2022-02-19 16:33 Normal [facility] XR HAND DEAN MIN 3Von 022 [...] ABIGAIL SHEEHAN Date: 2022-02-19 16:28 Normal [facility] ASYMPTOMATIC COVID-19 ANTIGE Non 12-04-2021 EUA Statement SEE BELOW Normal [facility] Comment on above: Result Comment: This [...] sooner. Performed By: #### C VDAGA #### [facility] [address] [place] [address] Dr. Soo Donnelly SARS-CoV-2 (COVID-19) RNA NOLA+probe Ql (Unsp spec) Negative Normal NEGATIVE [facility] Comment on above: Result Comment: Nega tive results are presumptive. They do not preclude infection and should not be used as the sole basis for treatment decisions. Additional confirmatory testing by a molecular method should be considered. Performed By: #### C VDAGA #### [facility] [address] [place], [place] [address] Dr. Soo Donnelly Covid-19 PCR ([facility])on SARS-CoV-2 (COVID-19) RNA NOLA+probe Ql (Unsp spec) Not detected Normal NOT DETECTED [facility] Comment on above: Result Comment: This test is not yet approved or cleared by the [place] FDA. When there are no FDA-approved or cleared tests available, and other criteria are met, FDA can make tests available under an emergency access mechanism called an Emergency Use Authorization (EUA). The EUA for this test is supported by the Home Office Claims Examiner of Health and Human Service's (HHS's) declaration [...] Performed By: #### U LG, CRP #### [facility] [address] [place], [place] [address] Dr. Soo Donnelly Vital Signs Date Time Vital Sign Value Performing Clinician Facility 10-13-2024 14:20-0500 Body height 170.2 cm Becca Ashley [employer] Work Phone: [facility] 10-13-2024 14:20-050 Body mass index (BMI) [Ratio] 28.51 kg/m2 Becca Ashley APRN-EDUCATIONAL RESOURCE CENTER TEACHER Work Phone: [facility] 10-13-2024 14:20-0500 Body weight 82.56 kg Becca Ashley APRN-EDUCATIONAL RESOURCE C[employer] TEACHER Work Phone: [facility] 11-01-2022 15:19-0500 Blood Pressure Location Nicola BUCHANAN [facility] [place] 11-01-2022 15:19-0500 Diastolic blood pressure 80 mm[Hg] Nicola BUCHANAN [facility] [place] 11-01-2022 15:19-0500 Heart rate 72 /min Nicola CANDELARIOL [facility] [place] 11-01-2022 15:19-0500 Respiratory rate 16 /min Nicola CANDELARIOL [facility] [place] 11-01-2022 15:19-0500 Systolic blood pressure 118 mm[Hg] Nicola CANDELARIOL [facility] [place] 10-01-2022 16:30-0400 Body height 170.18 cm Clarice Scally Other [facility] Other 10-01-2022 16:30-0400 Body mass index (BMI) [Ratio] 32.84 kg/m2 Clarice Scally Other [facility] Other 10-01-2022 16:30-0400 Body weight 95.12 kg Clarice Scally Other [facility] Other 10-01-2022 16:30-0400 Diastolic blood pressure 82 mm[Hg] Clarice Scally Other [facility] Other 10-01-2022 16:30-0400 Respiratory rate 18 /min Clarice Scally Other [facility] Other 10-01-2022 16:30-0400 SaO2% (BldA) [Mass fraction] 97 % Clarice Scally Other [facility] Other 10-01-2022 16:30-0400 Systolic blood pressure 116 mm[Hg] Clarice Scally Other [facility] Other 08-28-2022 14:30-0400 Body height 170.18 cm Nahid Elisediff Other [facility] Other 08-28-2022 14:30-0400 Body mass index (BMI) [Ratio] 34.55 kg/m2 Nahid Elisediff Other [facility] Other 08-28-2022 14:30-0400 Body weight 100.06 kg Nahid Elisediff Other [facility] Other 08-28-2022 14:30-0400 Diastolic blood pressure 82 mm[Hg] Nahid Elisediff Other [facility] Other 08-28-2022 14:30-0400 Respiratory rate 18 /min Nahid Elisediff Other [facility] Other 08-28-2022 14:30-0400 SaO2% (BldA) [Mass fraction] 97 % Nahid Elisediff Other [facility] Other 08-28-2022 14:30-0400 Systolic blood pressure 121 mm[Hg] Nahid Elisediff Other [facility] Other Encounters Encounter Date Encounter Type Care Provider Facility Start: 11-01-2024 ambulatory Vinayak Loredo lity:[facility] Start: 10-14-2024 ambulatory Vinayak Baltazar Facilit y:[facility] Start: 10-13-2024 End: 10-13-2024 Office outpatient new 30 minutes Becca Ashley DATA ASSISTANT-[employer]UC[employer]OURCE C[employer] TEACHER Work Phone: [facility] Comment on above: Positive fecal occul t blood test (Primary Dx); Rectal bleeding; Gastroesophageal reflux disease, unspecified whether esophagitis present Start: 10-13-2024 End: 10-13-2024 ambulatory [facility] Start: 10-04-2024 End: 10-04-2024 ambulatory Hebert Jara MD Facility:[facility] Start: 09-27-2024 End: 09-27-2024 ambulatory DELGADO LIDIA Not Available Start: 09-27-2024 End: 09-27-2024 Bamboo flowsheet Delgado Lidia DO Work Phone: [facility] Start: 09-27-2024 End: 09-27-2024 Bamboo flowsheet Delgado Lidia DO Work Phone: [facility] Start: 09-20-2024 End: 09-20-2024 ambulatory Hebert Jara MD Facility:[facility] Start: 09-09-2024 End: 09-09-2024 ambulatory Carol [...] PT Start: 08-30-2024 End: 08-30-2024 Departed Referred [facility] [address] Work Phone: Start: 08-30-2024 End: 08-30-2024 ambulatory NON STAFF [facility] Work Phone: Start: 04-05-2024 End: 04-05-2024 ambulatory DELGADO LIDIA Not Available Start: 03-15-2024 End: 03-15-2024 Emergency department patient visit Nicola Neff Facility:[facility] Start: 10-22-2023 End: 10-22-2023 ambulatory JESSICA SANCHEZ Not Available Start: 08-15-2023 End: 08-15-2023 ambulatory NON STAFF [facility] Work Phone: Start: 08-15-2023 End: 08-15-2023 Departed Referred [facility] [address] Work Phone: Start: 12-05-[address] SAMI MARINELLI Facility :[facility] Start: 11-09-2022 End: 11-10-[address] DOCTOR STEIN Facility:[facility] Start: 11-01-2022 End: 11-01-2022 Patient encounter procedure Nicola BUCHANAN General [facility] Start: 10-29-2022 End: 10-29-2022 ambulatory Clarice Hull Other [facility] Other Start: 10-29-2022 Telephone encounter [facility] Start: 10-14-2022 End: 10-14-2022 ambulatory Clarice Hull Other [facility] Other Start: 10-14-2022 Telephone encounter Clarice [facility] Start: 10-01-2022 (FCCCWMNF/U) Weight Management f/u Clarice Hull [facility] Start: 10-01-2022 End: 10-02-[address] LUZ ELENA SAUCEDA [facility] Other Start: 09-19-2022 End: 09-19-2022 ambulatory Nahid Mccoy Other [facility] Other Start: 09-19-2022 Telephone encounter Nahid [facility] Start: 09-18-2022 End: 09-18-[address] LUZ ELENA SAUCEDA Facility:[facility] Start: 09-12-2022 End: 09-13-[address] ABIGAIL SHEEHAN Facility:[facility] Start: 08-28-2022 End: 08-28-2022 ambulatory Nahid Mccoy Other [facility] Other Start: 08-28-2022 Nutrition therapy Nahid Mccoy [facility] Start: 07-22-2022 Encounter for genera l adult medical examination without abnormal findings DR SAMI MARINELLI [facility] Start: 07-19-2022 End: 07-20-[address] [...] for preprocedural laboratory examination DR DELGADO MURILLO [facility] Start: 05-13-2022 End: 05-14-[address] DELGADO MURILLO Facility:[facility] Start: 05-13-2022 End: 05-14-2022 Encounter for preprocedural laboratory examination DR DELGADO MURILLO Facility:[facility] Start: 05-11-2022 Encounter for preprocedural cardiovascular examination DR DELGADO MURILLO [facility] Start: 05-08-2022 End: 05-09-[address] [...] 05-28-2031 Screening for malignant neoplasm of colon [facility] Start: 10-23-2028 Screening for malignant neoplasm of cervix [facility] Start: 10-23-2026 Screening for malignant neoplasm of cervix Pap Smear [facility] Start: 05-28-2026 Screening for malignant neoplasm of colon Colonoscopy [facility] Start: 10-13-2025 Adult BMI Screening Adult BMI Screening [facility] Start: 10-13-2025 Tobacco Screening Tobacco Screening [facility] Start: 11-27-2024 Screening for malignant neoplasm of breast Mammogram [facility] Start: 11-22-2024 End: 11-22-2024 Patient encounter procedure 11/22/2024 1:00 PM EST Off ice Visit [facility] [address] [place] [phone] Delgado Murillo, DO [address] [facility] [address], [place] [address] [facility] Start: 10-27-2024 End: 10-27-2024 Admission to same day surgery center 10/27/2024 11:00 AM EST - 10/27/2024 11:45 AM EST Surgery [facility] [address] [place] [phone] Cande Li MD [address] [place] [phone] ESOPHAGOGASTRODUODENOSCOPY DIAGNOSTIC [40413 (CPT )] [facility] Comment on above: ESOPHAGOGASTRODUODENOSCOPY DIAGNOSTIC [4 6331 (CPT )] Start: 10-27-2024 End: 10-27-2024 Colonoscopy flx dx w/collj spec when pfrmd COLONOSCOPY DIAGNOSTIC / SCREENING positive fecal occult blood 10/27/2024 11:00 AM EST [facility] Start: 10-27-2024 End: 10-27-2024 Esophagogastroduodenoscopy transoral diagnostic ESOPHAGOGASTRODUODENOSCOPY DIAGNOSTIC positive fecal occult blood 10/27/2024 11:00 AM EST [facility] Start: 10-27-2024 Subsequent hospital visit by physician 10/27/2024 11:00 AM EST Hospital Encounter [facility] [address] [place] [phone] Cande Li MD [address] [facility] [place] [phone] [facility] Start: 10-26-2024 End: 10-26-2024 Patient encounter procedure 10/26/2024 1:45 PM EST Off ice Visit [facility] Surgery [address] [place] [phone] Becca Ashley, DATA ASSISTANT-[facility] [address] [place], [place] [id number] [facility] Start: 10-20-2024 End: 10-20-2024 ambulatory 10/20/2024 4:20 PM EST Suppo rt Visit [facility] - Pre Admit [address] [place] [phone] [facility] - Pre Admit Start: 09-27-2024 End: 09-27-2024 Patient encounter procedure 09/27/2024 3:10 PM EDT Off ice Visit [facility] [address] [address] Delgado Murillo DO [address] [place] [address] Arrived [facility] Comment on above: Arrived Start: 09-09-2024 End: 09-09-2024 ambulatory 09/09/2024 4:00 PM EDT Evaluation [facility] [address] [place] [address] Carol Webb, PT [address] [place] [address] Arrived [facility] Comment on above: Arrived Start: 08-01-2024 COVID-19 Vaccine () COVID-19 Vaccine () [facility] Start: 08-01-2024 Influenza vaccination [facility] Start: 1995 DTaP,Tdap and Td Vaccines (1 - Tdap) DTaP,Tdap and Td Vaccines ( - Tdap) [facility] Start: 1994 Adult BMI Follow Up Plan Adult BMI Follow Up Plan [facility] Start: 1988 Depression Screening Depression Screening [facility] Start: 1976 Screening for malignant neoplasm of colon [facility] Start: 1976 Tobacco Counseling Tobacco Counseling [facility] End: 10-13-2025 EGD / Colonoscopy EGD / Colonoscopy GI Routine Positive fecal occult blood test 1 Occurrences starting 10/13/2024 until 10/13/2025 [facility] Work Phone: Comment on above: 1 Occurrences starting 10/13/2024 until 10/13/2025 Immunizations Immunization Date Immunization Notes Care Provider Ramila narvaez 10-02-2004 influenza virus vaccine, unspecified formulation Becca Ashley DATA ASSISTANT-[employer]UC[employer] TEACHER Work Phone: [facility] NEGATED: Highlighted row has not occurred!11-01-2022 influenza virus vaccine, unspecified formulation Nicola BUCHANAN General [facility] Payers Date Payer Category Payer Self-pay [id number] 2023 Private Health Insurance [employer] [id number] 2023 Unknown [id number]. 1.13.693.2. [id number] 2014 Commercial [facility] [employer] [id number]. [id number] 1976 Unknown [id number] 2.840.1.128395.3.579.2 1976 Unknown [id number] 2.840.1.293339.3.579.2 1976 Unknown [id number] 2.840.1.864079.3.579.2 1976 Unknown [id number] 2.840.1.567036.3.579.2 1976 Unknown [id number] 2.840.1.242889.3.579.2 1976 Unknown [id number] 2.16840.1.414530.3.579.2. 1976 Unknown [id number] 2.16840.1.907678.3.579.2. 1976 Unknown [id number] 2.16.840.1.808491.3.579.2. 593 1976 Unknown [id number] 2.16.840.1.585476.3.579.2. 593 1976 Unknown [id number] 2.16.840.1.553378.3.579.2. 593 1976 Unknown [id number] 2.16.840.1.245922.3.579.2. 593 1976 Unknown [id number] 2.16.840.1.952979.3.579.2. 593 1976 Unknown [id number] 2.16.840.1.492238.3.579.2. 593 1976 Unknown [id number] 2.16.840.1.876117.3.579.2. 593 1976 Unknown [id number] 2.16.840.1.776824.3.579.2. 718 1976 Unknown [id number] 2.16.840.1.684660.3.579.2. 1259 1976 Unknown [id number] 2.16.840.1.897187.3.579.2. 1259 1976 Unknown [id number] 2.16.840.1.874592.3.579.2. 1259 1976 Unknown [id number] 2.16.840.1.211445.3.579.2. 1259 1976 Unknown [id number] 2.16.840.1.880681.3.579.2. 196 1976 Unknown [id number] 2.16.840.1.328286.3.579.2. 196 1976 Unknown [id number] 2.16.840.1.982524.3.579.2. 1286 1976 Unknown [id number] 2.16.840.1.060668.3.579.2. 727 1959 Self-pay [id number] 1959 Unknown [id number] 2.16.840.1.499171.19 Unknown [id number] 2.16.840.1.397082.3.579.2. 531 Social History Date Type Detail Facility Unknown if ever smoked [facility] Other Start: 01-11-2021 End: 10-20-2023 Sex Assigned At [facility] Start: 11-01-2022 Tobacco smoking status Ex-smoker (finding) [facility] Tobacco smoking status Former sm okeless tobacco user, quit more than 30 days ago General [facility] Start: 1975 Sex Assigned At Female [facility] Start: 06-25-2023 Tobacco smoking status [facility] Smokes tobacco daily [facility] History of [...] [facility] Start: 10-13-2024 Tobacco smoking status [facility] Occasional tobacco smoker [facility] History of tobacco use Tobacco U se Types Packs/Day Years Used Date Smoking Tobacco: Some Days Cigarettes Vaping/E-cigarettes Smokeless Tobacco: [facility] Start: 10-13-2024 Tobacco use and exposure Smokeless tobacco non-user [facility] Start: 10-13-2024 Alcoholic beverage intake Current non-drinker of alcohol (finding) [facility] Start: 07-06-2015 Sex Female (finding) [facility] Start: 12-06-2022 Gender identity Identifies as female gender (finding) [facility] Start: 12-06-2022 Sexual orientation Homosexual (finding) [facility] Functional Status Date Assessment Result Facility 11-01-2022 Functional Status N/A General Delgado yaa Rodriguez Clinical Notes 05-16-2022 to 10-13-2024 Becca Rodrigues Ashley, DATA ASSISTANT-EDUCATIONAL RESOURCE C[employer] TEACHER - 10/13/2024 2:30 PM Wolf Webb, PT [...] 05/28/2021 Performed by Nicola Gee DO at [facility] COLONOSCOPY N/A 05/04/2018 Performed by Nicola Gee DO at [facility] CYST REMOVAL from uterus and ovaries x 5 EGD N/A 05/04/2018 Performed by Nicola Gee DO at [facility] ESOPHAGOGASTRODUODENOSCOPY N/A 05/28/2021 Performed by Nicola Gee DO at [facility] KNEE ARTHROSCOPY Left KNEE ARTHROSCOPY Right LAPAROSCOPIC [...] muscle spasms., Disp: , Rfl: peg 3350-sod sulf,rkki-hzp-xjf 178.7-7.3-0.5 gram recon soln, Take 1 kit [...] patient/family/caregiver Referring and communicating with other health care program director Positive fecal occult blood test [R19.5] BECCA ASHLEY, DATA ASSISTANT-EDUCATIONAL RESOURCE CENTER TEACHER [facility] [place] This note was created with the assistance of a speech recognition program. While intending to generate a timely document that accurately reflects the content of the visit, no guarantee can be provided that every grammatical or spelling mistake has been or will be identified or corrected. Thank you for your understanding. MAYRA Barrett 10/13/24 1513 documented in this encounter [facility] 09-09-2024 History of Present illness Narrative [...] No resulting surgeries. 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 Also notes poor balance with no diagnosed [...] sign below. Date: documented in this encounter [facility] 03-15-2024 Note Education Materials Cardiovascular Hypertension, [...] Keep all follow-up visits. Medicines ? Take igfp-qth-eikzhfz and prescription medicines only as told by [...] work harder to (more content not included)... [facility] 10-01-2022 Evaluation note Encounter Date Diagnosis [...] was counseling done by myself, Ann ANGLIN. [facility] Other 09-28-2022 Evaluation note* Encounter Date Diagnosis Assessment Notes Treatment Notes Treatment Clinical Notes Aug, Abnormal weight gain (ICD-10 - R63.5) Aug, Prediabetes (ICD-10 - R73.03) Aug, Mixed hyperlipidemia (ICD-10 - E78.2) Aug, Hypertension (ICD-10 - I10) Aug, Obstructive sleep apnea (ICD-10 - G47.33) Aug, GERD (gastroesophageal reflux disease) (ICD-10 - K21.9) Aug, Metabolic syndrome X (ICD-10 - E88.81) [facility] Other 06-16-2022 NoteDISCHARGE SUMMARY DISCHARGE DATE: 05/18/2022 [...] pain free and no longer on narcotics. [facility] Signed and Approved by: DR DELGADO MURILLO . 05/20/2022 07:51:00[facility]1724 NoteThe [place], [place] NAME: HORACIO PUGH DATE OF : MEDICAL REC#: [id number] MANAGER CUSTOM: Luis [facility] ADMIT DATE: 05/16/2022 11:05:00 RAILWAY SIGNALLING ENGINEER DATE: 05/17/2022 21:20 DICTATING PHYSICIAN: DELGADO MURILLO DICTATION DATE: 05/16/2022 15:02 OP Note OPERATION DATE: 05/16/2022 PROCEDURE: Supracervical hysterectomy with left salpingo-oophorectomy with right salpingectomy and right ovarian cystotomy of approximately 3 cm cyst. SURGEON: Delgado Murillo D.O. QUALITY CONTROL OPERATOR: SHUKRI Bailon URINE OUTPUT: Yellow and clear. [...] Approved by: DR DELGADO MURILLO . 05/23/2022 10:30:00[facility] HospitalEvaluation + Plan note No data available for this section [facility] [place] Evaluation noteNo InformationNort Holla@Me Other Evaluation noteNo assessment information available [facility] Work Phone: Evaluation note* Diagnosis [...] History TMJ surgery Hospitalization History see above [facility] Other History general Narrative - Reported* Type [...] ER-abd . pain [facility] 09[facility]18[facility]22 [facility] Other Hospital Discharge instructions No data available for this section General Surgery [place] InstructionsNot on filedocumented in this encounter [facility] No data available for this section [facility] [place] Summary Purpose Family History No Family History [...] for Visit Chief Complaint WELLNESS Chief Complaint [facility] labs Additional Source Comments REASON FOR VISIT (unrecogniz ed section and content) Specialty Diagnoses / Procedures Referred By Contac t Referred To Contact Physical Therapy Diagnoses Other spondylosis, lumbar region Procedures [place] [facility] EVALUATION Edwige Magaña MD [facility] [place] [address] Carol Webb, PT [address] [place] [address] Referral ID Status Reason Start Date Expiration Date V isits Requested Visits Authorized [id number] Authorized 09/02/2024 03/01/2025 40 40 Reason Comments POSITIVE OCCULT TEST POSITIVE OCCULT STO OL, REF BY DR. MARINELLI Patient Care team informatio n (unrecognized section and content) Team Status: Active Member Role Status Dates NON STAFF Primary Care Provider Active Team Status: Inactive Member Role Status Dates NON STAFF Primary Care Provider Active Dedrick Fuller DO [facility] Attending Provider Active Team Status: Inactive Member Role Status Dates NON STAFF Primary Care Provider Active Start: August 30, 2024 End: August 30, 2024 Dedrick Rangel [facility] DO [facility] Attending Provider Active Start: August 30, 2024 End: August 30, 2024 Mechanical Engineering Director Relationship Specialty Start Date End Date Sami Marinelli MD [address] [facility] [place] [address] PCP - General Family Medicine 06/26/23 Mechanical Engineering Director Relationship Specialty Start Date End Date Sami Marinelli MD [address] [facility] [place] [id number] PCP - General Family Medicine 06/26/23 Mechanical Engineering Director Relationship Specialty Start Date End Date Sami Marinelli MD PCP - General 05/04/18 INFORMATION SOURCE (unrecogn ized section and content) DATE CREATED AUTHOR 12/03/2022 [facility] DATE CREATED AUTHOR AUTHOR'S ORGANIZ ATION 03/21/2024 [facility] DATE CREATED AUTHOR AUTHOR'S ORGANIZ ATION 08/31/2024 [facility] DATE CREATED AUTHOR AUTHOR'S ORGANIZ ATION 09/28/2024 [facility] EPIC DATE CREATED AUTHOR AUTHOR'S ORGANIZ ATION 10/09/2024 [facility] DATE CREATED AUTHOR AUTHOR'S ORGANIZ ATION 10/15/2024 [facility] DATE CREATED AUTHOR AUTHOR'S ORGANIZ ATION 10/17/2024 [facility] Goals (unrecognized section and content) Goals may [...] BE BASED ON THE PRIMARY CLINICAL RECORDS. [employer] [facility]. provides no warranty or guarantee of the accuracy or completeness of information in this document.
--- NOTE | 2024-10-20 16:26 | P.CN_ITS ---
Consult Note: HPI Data of Consult Patient: known to practice within the last 3 years Consult date: 09/20/24 Requesting Physician: China Streeter NP Primary Care Provider: Varun Marinelli MD Consult Narrative Reason for consult: low back, leg pain, neck and shoulder pain Narrative: 49yof who presents for assessment. worsening neck and low back pain with pain that radiates into bilateral lower extremities. imaging reviewed, significant for moderate canal stenosis at l3-4, as well as more mild stenosis at other levels. synovial cyst seen at l3-4 with some compression of nerve root. multilevel spondylosis noted. cervical imaging consistent with multilevel spondylosis, worst at c4-5 and c5-6. has continued in a series of provider directed home exercises >6 weeks, without lasting benefit. has tried various nsaids and muscle relaxers, without significant benefit. denies adverse med side effects. recently underwent bilateral C4-5 C5-6 MBB with no improvement, bilateral L3-4 TFESI with mild relief. 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, unspecified (ICD-10) Heartburn ?R12 - Heartburn (ICD-10) Acid reflux ?K21.9 - Gastro-esophageal reflux disease without esophagitis (ICD-10) Obesity ?E66.9 - Obesity, unspecified (ICD-10) Diabetes ?E11.9 - Type 2 diabetes mellitus without complications (ICD-10) Former smoker ?Z87.891 - Personal history of nicotine dependence (ICD-10) Sleep apnea ?G47.30 - Sleep apnea, unspecified (ICD-10) Hypertension ?I10 - Essential (primary) hypertension (ICD-10) High cholesterol ?E78.00 - Pure hypercholesterolemia, unspecified (ICD-10) Surgical History S/P excision of lipoma ?Z98.890 - Other specified postprocedural states (ICD-10) ?Z86.018 - Personal history of other benign neoplasm (ICD-10) S/P left knee arthroscopy ?Z98.890 - Other specified postprocedural states (ICD-10) Hx laparoscopic cholecystectomy ?Z90.49 - Acquired absence of other specified parts of digestive tract (ICD- 10) H/O breast surgery ?Z98.890 - Other specified postprocedural states (ICD-10) H/O laparoscopy ?Z98.890 - Other specified postprocedural states (ICD-10) H/O: ?Z98.891 - History of uterine scar from previous surgery (ICD-10) H/O abdominoplasty ?Z98.890 - Other specified postprocedural states (ICD-10) H/O: hysterectomy ?Z90.710 - Acquired absence of both cervix and uterus (ICD-10) Meds Home Medications and Allergies Home Medications ?Medication ?Instructions ?Recorded ?Confirmed ?Type alprazolam 0.25 mg tablet 0.25 mg PO TID 03/27/24 10/18/24 History omeprazole 40 mg capsule,delayed 40 mg PO BID 03/27/24 10/18/24 History release aspirin 325 mg tablet 325 mg PO DAILY 09/02/24 10/18/24 History dextroamphetamine-amphetamine 30 30 mg PO DAILY 09/02/24 10/18/24 History mg tablet (Adderall) lisinopril 20 mg tablet 20 mg PO DAILY 09/02/24 10/18/24 History metoprolol tartrate 75 mg tablet 75 mg PO BID 09/02/24 10/18/24 History semaglutide 0.25 mg or 0.5 mg (2 0.25 mg subcut QWEEK 09/02/24 10/18/24 History mg/3 mL) subcutaneous pen injector (Ozempic) tizanidine 4 mg tablet (Zanaflex) 4 mg PO TID PRN muscle spasticity 10/21/24 11/18/24 History celecoxib 100 mg capsule mg 10/18/24 History estradiol 0.5 mg tablet (Estrace) 0.5 mg PO DAILY 10/18/24 10/18/24 History lamotrigine 25 mg tablet (Lamictal) 25 mg PO DAILY 10/18/24 10/18/24 History metformin 500 mg tablet 500 mg PO BID 10/18/24 10/18/24 History Allergies Allergy/AdvReac Type Severity Reaction Status Date / Time nitrofurantoin (From Allergy Mild Anaphylaxis Verified 10/18/24 07:17 Macrobid) albuterol AdvReac Severe convulsions Verified 10/18/24 07:17 pecan Allergy Unknown Anaphylaxis Uncoded 10/18/24 07:17 Exam Constitutional Documenting provider has reviewed patient's vital signs: yes Common normals: no apparent distress, oriented x3, healthy appearing, alert and well nourished General appearance: cooperative HENMT Common normals: normocephalic, hearing grossly normal bilaterally and moist oral mucous membranes Head and scalp: normocephalic Eye Common normals: PERRL Pupil: PERRL Neck & C-Spine Common normals: full ROM General: normal visual inspection Cervical spine: pain with cervical ROM and cervical spine tenderness Other: intermittent C6/7 radiculopathy to BUE strength 5/5 in BUE positive facet loading pain over C4-T2 facets Chest Common normals: inspection of chest normal Respiratory Common normals: normal respiratory effort, no retractions and no use of ac cessory muscles Back & Pelvis Thoracic spine/upper back: ROM limited and pain with ROM Lumbar spine/lower back: ROM limited, pain with ROM and straight leg raise positive right Sacroiliac joints: SI joint(s) abnormal Other: right sij positive javier(patricks), gaenslens, thigh thrust, compression test strength 5/5 in BLE decreased sensation to right L3,4,5 pattern Neuro Common normals: oriented x3, CN's II-XII intact bilaterally, moves all extremities, no focal motor deficits, no sensory deficits noted and deep tendon reflexes 2+ bilaterally Sensorium/orientation: alert Motor exam: strength 5/5 throughout and no movement abnormalities noted Psych Common normals: mental status grossly normal, thought process normal, cooperative, affect normal, speech normal and activity/motor behavior normal Speech: normal speech Thought process: normal thought process Results Additional Findings Additional findings: If on a controlled substance or opioids, I have checked an [place] report on this patient and there are no aberrancies noted in the prescribing history.??If on a controlled substance or opioid a drug screen was completed and reviewed within the last year, and if there has not been a drug screen completed we ordered one today to monitor higher risk, state monitored pain medication use. As part of providing excellent, safe, comprehensive care, the following was completed at our patient's visit: 1. A medication reconciliation and review to ensure accurate knowledge of current/active medications, including asking our patients to inform us about any [id number] medications or herbal remedies/nutritional supplements/alternative remedies. 2. A review to specifically ensure our patients have had annual screening for screening for depression, screening for tobacco use, and screening for unhealthy alcohol use. For concerning screenings had a discussion with the patient, provided patient education, and recommended follow-up with primary care provider when appropriate. If patient noted with a risk of falling, they received education on strength, gait, and balance training to prevent future risk of falling. Assessment and Plan Assessment and Plan (1) Sacroiliac joint dysfunction: (2) Lumbar stenosis with neurogenic claudication: (3) Lumbar degenerative disc disease: (4) Degenerative disc disease, cervical: (5) Cervical spondylosis: (6) Lumbar spondylosis: (7) Cervical radiculopathy: Plan proceed with right SIJ injection for sacroiliac joint dysfunction update cervical MRI without contrast to assess chronic neck pain secondary to cervical DDD and spondylosis, notes intermittent radiculopathy continue HEP as tolerated continue current medications f/u after injection and to review cervical MRI
== END 2024-10-20 15:30 | disposition home or self-care (01) ==
LOC: PM 15:29
PROVIDERS: PCP Family Medicine; Visit Provider Nurse Practitioner
DX: M53.3 Sacrococcygeal disorders, not elsewhere classified (principal); M48.062 Spinal stenosis, lumbar region with neurogenic claudication; M51.369 Other intervertebral disc degeneration, lumbar region without mention of lumbar back pain or lower extremity pain; M50.30 Other cervical disc degeneration, unspecified cervical region; M47.812 Spondylosis without myelopathy or radiculopathy, cervical region; M47.816 Spondylosis without myelopathy or radiculopathy, lumbar region; M54.12 Radiculopathy, cervical region
CPT/HCPCS: G0463

== ENCOUNTER 2024-11-08 16:19 | Outpatient (OUT) | payer OTHER, SELFPAY | END 2024-11-08 16:20 | disposition home or self-care (01) | LOC: LAB 16:20 | PROVIDERS: PCP Family Medicine; Visit Provider Internal Medicine | DX: R79.89 Other specified abnormal findings of blood chemistry (principal); E88.89 Other specified metabolic disorders; Z90.49 Acquired absence of other specified parts of digestive tract | CPT/HCPCS: 36415; 82784; 86015; 86364; 86381 ==

== ENCOUNTER 2024-11-08 16:22 | Outpatient (OUT) | payer OTHER, SELFPAY ==
[2024-11-08 17:16] LABS: Estimated Average Glucose 117 mg/dL; Glycohemoglobin A1C 5.7 % (4.5-6.2)
[2024-11-08 17:21] LABS: Alanine Aminotransferase 27 U/L (14-59); Albumin Globulin Ratio 1.2; Albumin Level 3.9 g/dL (3.4-5.0); Alkaline Phosphatase 56 U/L (46-116); Aspartate Amino Transferase 12 U/L (15-37); Bilirubin Direct 0.1 mg/dL (0.0-0.2); Bilirubin Total 0.8 mg/dL (0.2-1.0); Globulin 3.3 g/dL; Total Protein 7.2 g/dL (6.4-8.2)
== END 2024-11-08 16:23 | disposition home or self-care (01) ==
LOC: LAB 16:23
PROVIDERS: PCP Family Medicine; Visit Provider Family Medicine
DX: R79.89 Other specified abnormal findings of blood chemistry (principal); E88.89 Other specified metabolic disorders; Z90.49 Acquired absence of other specified parts of digestive tract; I10 Essential (primary) hypertension; R53.83 Other fatigue; R74.8 Abnormal levels of other serum enzymes
CPT/HCPCS: 36415; 80076; 82784; 83036; 83540; 86015; 86038; 86160; 86225; 86235; 86364; 86381; 86431

== ENCOUNTER 2024-11-12 13:29 | Outpatient (OUT) | payer OTHER, SELFPAY ==
--- NOTE | 2024-11-12 13:36 | MR_ITS ---
[facility] [place] [id number] Patient Name: HORACIO KEATING MRN: [id number] date: 1975 Sex: F Assigned Patient Location: MRI Current Patient Location: Accession/Order Number: [id number] Exam Date: 11/12/2024 13:48 Report Date: 11/15/2024 07:26 At the request of: KYLE VU Procedure: MR cervical spine wo con MR cervical spine wo con, 11/12/2024 1:48 PM EST INDICATION: Cervical DDD, Cervical spondylosis COMPARISON: Prior x-ray of cervical spine dated 08/12/2024 TECHNIQUE: Multiplanar, multisequential MRI images of cervical spine were obtained without contrast. FINDINGS: There is normal physiologic cervical lordosis. The vertebral heights are relatively preserved. There is signal abnormality on T1 and T2-weighted images in the vertebral bodies of visualized spine that may suggest bone marrow reconversion in appropriate clinical setting. The cervicomedullary junction is unremarkable. No definite signal abnormality within the spinal cord is noted. There are mild disc osteophyte complex associated with uncovertebral joint arthrosis from C3 to T1 contributing to neuroforaminal and canal stenosis. At the level of C2-C3, there is no neuroforaminal narrowing or canal stenosis. At the level of C3-C4, there is mild right neuroforaminal narrowing and no canal stenosis. At the level of C4-C5, there is mild bilateral neuroforaminal narrowing and no canal stenosis. At the level of C5-C6, there is mild to moderate bilateral neuroforaminal narrowing and mild canal stenosis. At the level of C6-C7, there is mild left neuroforaminal narrowing and mild canal stenosis. Level of C7-T1 is unremarkable. No definite muscular or ligamentous injury is noted. MR/MR cervical spine wo con IMPRESSION: Mild degenerative changes of the cervical spine in particular at C5-C6 and C6-C7. Electronically authenticated by: PAULINO BLOUNT Date: 11/15/2024 07:26
--- OUTSIDE RECORDS SUMMARY | 2024-11-12 13:40 | XMS_ITS | CCD ---
Author Organization 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 Role Phone Nahid Mccoy Unavailable AldoClarice guzman Unavailable Sami Mccarty Primary Care Physician [phone] DR ABIGAIL GONSALVES V Consulting Unavailable LUL, DR GALLARDO Primary [...] LIDIA, DR CHAVARRIA Consulting Unavailable DR SAMI MCCARTY Primary Care Unavailable LIDIA, DR CHAVARRIA Attending Unavailable LIDIA, DR CHAVARRIA Admitting Unavailable LUL, DR GALLARDO Consulting Unavailable LUL, DR GALLARDO Primary Care Unavailable LIDIA, DR CHAAVRRIA Attending Unavailable LIDIA, DR CHAVARRIA Admitting Unavailable LIDIA, DR CHAVARRIA Consulting Unavailable DR SAMI MCCARTY Consulting Unavailable LUL, DR GALLARDO Primary Care [...] Consulting Unavailable HOY, DR GALLARDO Consulting Unavailable JOCELYNNY, DR GALLARDO Primary Care Unavailable HOY, DR GALLARDO Attending Unavailable HOY, DR GALLARDO Admitting Unavailable MISC, DR RIDER Consulting Unavailable HOY, DR GALLARDO Primary Care Unavailable MISC, DR RIDER Attending Unavailable MISC, DR RIDER Admitting Unavailable ZIEBER, DR LUZ ELENA Fermin Consulting Unavailable LUL, DR GALLARDO Primary Care Unavailable ISMAEL MENJIVAR Attending Unavailable OTTO, ISMAEL Admitting Unavailable ISMAEL MENJIVAR Consulting Unavailable NON STAFF Primary Care Provider UnavailDO Dedrick Alfaro Attending Provider [phone] Nicola Neff Attending Unavailab Nicola Anderson Admitting Unavailab SAMI Matos Primary Care Unavailable NON STAFF Primary Care Provider [facility]availsalome [facility] Attending Provider [facility] Unavailable [facility] Admitting Unavailable NON STAFF Primary Care Unavailable Sami Mccarty MD Primary Care Provider [phone] JESSICA SANCHEZ Attending Unavailable DELGADO MURILLO Attending Unavailable CAROL WEBB Attending Unavailable EDWIGE MAGAÑA F Referring Unavailable DELGADO MURILLO Attending Unavailable Sami Mccarty MD Primary Care Provider [phone] BECCA SCHWARZ Attending Unavailable SAMI MCCARTY Referring Unavailable SAMI MCCARTY Primary Care Unavailable Marek BURK, Hebert Rock Attending Unavailable Marek BURK, Hebert Rock Attending Unavailable Marek BURK, Hebert Rock Attending Unavailable SAMI MCCARTY Referring Unavailable SAMI MCCARTY Primary Care Unavailable TATYANA COKER Admitting Unavailable TATYANA COKER Attending Unavailable SAMI MCCARTY Primary Care Unavailable Vinayak Baltazar Attending Unavailable Vinayak Baltazar Attending Unavailable Allergies Allergy Classification Reported Allergen(s) Allergy Type Date of Onset Reaction(s) Facility (10 sources) NITROFURANTOIN, MACROCRYSTALS / Nitrofurantoin, Monohydrate; 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: [nitrofurantoin] Drug Allergy 05-01-20 18 Neck swelling (finding), Swelling [facility] (2 sources) Albuterol Drug Allergy [facility] Comment on above: NEED TO CUT DOWN ADR ENALIN TO PREVENT SEIZURES (3 sources) Bee/Wasp/Ant venom; 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: [Bee Stings] Allergy to substance Nausea, Swelling [facility] (2 sources) PECANS 1 Food allergy [facility] Comment on above: AIRWAY CONSTRICTION (2 sources) bee venom Drug allergy (disorder) 06-09-20 15 [facility] Repository (2 sources) egg extract Drug Allergy 06-09-20 15 [facility] Repository (4 sources) Nitrofurantoin; 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: [Macrobid] Drug Allergy 05-02-20 12 [facility] Rep[facility] (2 sources) pecan pollen extract Drug Allergy [facility] (4 sources) tree nut, unspecified; 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: [TREE NUT] Drug allergy (disorder) 06-09-20 15 [facility] Repository (9 sources) Albuterol; 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: [albuterol] Drug Allergy 07-16-20 17 Other, Other (See Comments) [facility] Repository (1 source) Nitrofurantoin Drug Allergy 10-01-20 22 [facility] Repository (5 sources) Honey bee venom Allergy to substance 04-05-20 24 [facility] (5 sources) Nitrofurantoin Drug Allergy 05-01-20 18 Swelling [facility] (5 sources) Nitrofurantoin Drug Allergy 04-05-20 24 [facility] (5 sources) Egg-Derived Products Drug Allergy 04-05-20 24 [facility] (9 sources) Other; 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: [OTHER] Propensity to adverse reactions 05-13-20 05 [facility] (2 sources) NITROFURANTOIN MONOHYD/M-CRYST; 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: [NITROFURANTOIN MONOHYD/M-CRYST] Propensity to adverse reactions to drug (disorder) 05-01-20 [facility] Repository (2 sources) Bee Venom Protein (Honey Bee); 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: [BEE VENOM PROTEIN (HONEY BEE)] Propensity to adverse reactions to drug 04-05-20 [facility] (1 source) Egg; 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: [Eggs] Food allergy (disorder) [facility] Repository (1 source) PECANS; 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: [PECANS] Food allergy (disorder) [facility] Repository Medications Current Medications Medication Drug Class(es) Dates Sig (Normalized) Sig (Original) 0.25 MG, 0.5 MG Dose 3 ML semaglutide 0.68 MG/ML Pen Injector [Ozempic] (1 source) Start: 11-01-2024 Ozempic 2 mg/3 mL (0.25 mg or 0.5 mg dose) subcutaneous solution SubCutaneous, Refills(s) 0 Start Date: 11/01/24 Status: Ordered ALPRAZolam 0.25 mg oral tablet (15 sources) Benzodiazepine Start: 11-17-2014 take 1 tablet by mouth three times daily as needed ALPRAZolam (Xanax) 0.25 MG tablet Take 0.25 mg by mouth 3 (three) times a day as needed. 02/03/2023 Active take 1 tablet by fernando once daily as needed for anxiety ALPRAZolam (XANAX) 0.25 mg tablet Take 1 tablet (0.25 mg total) by mouth nightly as needed for anxiety. Active 24 hr amphetamine aspartate 7.5 mg / amphetamine sulfate 7.5 mg / dextroamphetamine saccharate 7.5 mg / dextroamphetamine sulfate 7.5 mg extended release oral capsule (3 sources) Central Nervous System Stimulant Start: 11-01-2024 Adderall XR 30 mg Cap-ER Refills(s) 0 Start Date: 11/01/24 Status: Ordered take 1 capsule by mo [facility] once daily in the morning amphetamine-dextroamphetamine XR (ADDERA LL XR) 30 mg 24 hr capsule Take 1 capsule (30 mg total) by mouth every morning. Max Daily Amount: 30 mg Active aspirin 325 mg oral capsule (9 sources) Platelet Aggregation Inhibitor, Nonsteroidal Anti-inflammatory Drug Start: 11-01-2024 take 1 mg by mouth every four hours aspirin 325 mg oral capsule mg cap(s), Oral, q4hr, Refills(s) 0 Start Date: 11/01/24 Status: Ordered take 1 tablet by mouth in the [facility] aspirin 325 mg EC tablet Take 1 tablet (325 mg total) by mouth in the morning. Active take 1 tablet by mouth once janett y Aspirin 81 81 MG 1 tablet Orally Once a day Active FiberCon (3 sources) Start: 11-01-2024 FiberCon See I nstructions, 3 caps BID, Refills(s) 0 Start Date: 11/01/24 Status: Ordered take 1 tablet by mouth in the [facility] polycarbophil (FIBERCON) 625 mg tablet Take 1 tablet (625 mg total) by mouth in the morning. Active celecoxib 100 mg oral capsule (3 sources) Nonsteroidal Anti-inflammatory Drug Start: 11-01-2024 take 1 capsule by mouth twice daily celecoxib 100 mg Cap = 1 cap(s), Oral, BID, Refills(s) 0 Start Date: 11/01/24 Status: Ordered take 1 capsule by [facility] in the morning, then take 1 capsule by mouth at bedtime celecoxib (CeleBREX) 100 mg capsule Take 1 capsule (100 mg total) by mouth in the morning and 1 capsule (100 mg total) before bedtime. Active docusate sodium 50 mg oral capsule (2 sources) take 1 capsule by mouth in the morning, then take 1 capsule by mouth at bedtime docusate sodium (COLACE) 50 mg capsule Take 1 capsule (50 mg total) by mouth in the morning and 1 capsule (50 mg total) before bedtime. Active doxepin hydrochloride 10 mg oral capsule (5 sources) Tricyclic Antidepressant Start: 06-09-20 23 take 1 capsule by mouth at bedtime doxepin (SINEquan) 10 MG capsule Take 10 mg by mouth at bedtime. 06/09/2023 Active estradiol 0.5 mg oral tablet (3 sources) Estrogen Start: 11-01-20 24 take 1 tablet by mouth once daily estradiol 0.5 mg Tab = 1 tab(s), Oral, Daily, Refills(s) 0 Start Date: 11/01/24 Status: Ordered take 1 tablet by mouth in the [facility] estradioL (ESTRACE) 0.5 mg tablet Take 1 tablet (0.5 mg total) by mouth in the morning. Active fluconazole 150 mg oral tablet (5 sources) Azole Antifungal Start: 04-05-2024 take 1 tablet by mouth once daily fluconazole (Diflucan) 150 MG tablet Indications: Pelvic pain in female Take 1 tablet (150 mg) by mouth Daily Repeat in 7 days if symptoms persist. 2 tablet 04/05/2024 Active lactobacillus acidophilus [id number] unt / pectin 100 mg oral tablet (2 sources) acidophilus-pect in , citrus 25 million cell -100 mg tablet Take 1 tablet by mouth in the morning and 1 tablet at noon and 1 tablet in the evening. Take with meals. Active lamoTRIgine 100 mg oral tablet (3 sources) Mood Stabilizer, Anti-epileptic Agent Start: 11-01-2024 take 1 tablet by mouth once daily lamotrigine 100 mg Tab = 1 tab(s), Oral, Daily, Refills(s) 0 Start Date: 11/01/24 Status: Ordered take 1 tablet by mouth in the mo rning lamoTRIgine (LaMICtal) 25 mg tablet Take 1 tablet (25 mg total) by mouth in the morning. Active lisinopril 20 mg oral tablet (10 sources) Angiotensin Converting Enzyme Inhibitor Start: 10-30-2022 take 1 tablet by mouth once daily lisinopril 20 mg Tab 20 mg = 1 tab(s), Oral, Daily, Refills(s) 0 Start Date: 10/30/22 Status: Ordered meloxicam 15 mg oral tablet (14 sources) Nonsteroidal Anti-inflammatory Drug Start: 06-14-2023 take 1 tablet by mouth in the morning meloxicam (Mobic) 15 MG tablet Take 15 mg by mouth in the morning. 06/14/2023 Active Start: 10-30-2022 take 1 tablet by fernando th once daily meloxicam 15 mg Tab 15 mg = 1 tab(s), Oral, Daily, Refills(s) 0 Start Date: 10/30/22 Status: Ordered End: 10-20-2024 take 1 tablet by mouth in the morning meloxicam (MOBIC) 7.5 mg tablet Take 1 tablet (7.5 mg total) by mouth in the morning. 10/20/2024 Discontinued metFORMIN hydrochloride 500 mg oral tablet (1 source) Biguanide Start: 11-01-2024 take 1 tablet by mouth twice daily metformin 500 mg Tab = 1 tab(s), Oral, BID, Refills(s) 0 Start Date: 11/01/24 Status: Ordered metoprolol tartrate 75 mg oral tablet (8 sources) beta-Adrenergic Jeffrey Start: 11-01-2024 take 1 tablet by mouth twice daily metoprolol tartrate 75 mg oral tablet = 1 tab(s), Oral, BID, Refills(s) 0 Start Date: 11/01/24 Status: Ordered Start: 05-17-2023 [facility] metop[facility]ol tartrate (Lopressor) 50 [...] 1 tablet Orally Once a day Active multivitamin with iron (1 source) Start: 4 multivitamin with iron mL, Refill(s) 0 Start Date: 11/01/24 Status: Ordered omeprazole 40 mg delayed release oral capsule (15 sources) Proton Pump Inhibitor Start: 2 take 1 capsule by mouth twice daily omeprazole 40 mg Cap-DR 40 mg = 1 cap(s), Oral, BID, Refills(s) 0 Start Date: 10/30/22 Status: Ordered take 1 capsule by mo [facility] every twenty-four hours Omeprazole 40 MG 1 cap(s) p.o. Once a da y Active peg 3350-sod sulf,fgsf-xcl-wzg 178.7-7.3-0.5 gram recon soln (1 source) Start: 10-13-2024 End: 10-14-2024 peg 3350-sod sulf,rbjc-yaq-btg 178.7-7.3-0.5 gram recon soln Indications: Positive fecal occult blood test Take 1 kit by mouth once daily for 1 dose. Please see instructional sheet given by physicians office. 1 each 10/13/2024 10/14/2024 Active phentermine hydrochloride 37.5 mg oral tablet (5 sources) Sympathomimetic Amine Anorectic Start: 06-13-2023 take 1 tablet by mouth before mealtime phentermine (Adipex-P) 37.5 MG tablet Take 37.5 mg by mouth in the morning. Take before meals. 06/13/2023 Active Pre/Pro biotics (1 source) Start: 11-01-2024 Pre/Pro biotics Pre/Pro biotics Start Date: 11/01/24 Status: Ordered QUEtiapine 25 mg oral tablet (7 sources) Atypical Antipsychotic Start: 10-30-2022 take 1 tablet by mouth once daily SEROquel 25 mg Tab 25 mg = 1 tab(s), Oral, Daily, Refills(s) 0 Start Date: 10/30/22 Status: Ordered 0.25 mg, 0.5 mg dose 1.5 ml semaglutide 1.34 mg/ml pen injector (7 sources) Start: 08-28-2022 Ozempic (0.25 or 0.5 MG/DOSE) 2 MG/1.5ML 0.25 mg for one month and then increase to 0.5 mg dose Subcutaneous weekly for 30 days Aug, Active semaglutide (OZE MPIC) 0.25 mg or 0.5 mg(2 mg/1.5 mL) pen injector Inject 0.6 mg under the skin every 7 days. mondays Active tiZANidine 4 mg oral capsule (8 sources) Central alpha-2 Adrenergic Agonist Start: 11-01-2024 Zanaflex 4 mg oral capsule = 1 tab(s), Oral, ADHOC, Refills(s) 0 Start Date: 11/01/24 Status: Ordered Start: 06-13-2023 tiZANidine (Za naflex) 4 MG tablet Take 8 mg by [...] Date Documented Da te Episodic/Chronic Abdominal pain (9 sources) Unspecified abdominal pain; 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: [Periumbilical pain] Onset: 2 Episodic Administrative/social admission (2 sources) Patient encounter status; 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: [Person consulting for explanation of examination or test findings] 09-27-2024 Episodic Anxiety disorders (2 sources) Anxiety 11-17-2014 Chronic Complications of surgical procedures or medical care (4 sources) Menopausal flushing; 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: [Symptomatic postprocedural ovarian failure] 09-27-2024 Chronic Deficiency and other anemia (1 source) Iron deficiency anemia 11-01-2024 Episodic Diabetes mellitus without complication (5 sources) Prediabetes; 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: [Prediabetes] Onset: 2 Episodic Diseases of white blood cells (1 source) Elevated white blood cell count, unspecified; 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: [ELEVATED WHITE BLOOD CELL COUNT UNS] Onset: 2 Chronic Disorders of lipid metabolism (12 sources) Mixed hyperlipidemia; 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: [Mixed hyperlipidemia] Chronic Epilepsy; convulsions (1 source) Seizure 11-01-2024 Episodic Esophageal disorders (13 sources) Gastroesophageal reflux disease; 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: [Gastro-esophageal reflux disease without esophagitis] Onset: 2 Chronic Essential hypertension (10 sources) Hypertensive disorder; 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: [Essential (primary) hypertension] Chronic Gastritis and duodenitis (1 source) Gastritis, unspecified, without bleeding; 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: [Gastritis, unspecified, without bleeding] Onset: 4 Episodic Gastroduodenal ulcer (except hemorrhage) (2 sources) H/O: gastric ulcer 11-30-2022 Episodic Gastrointestinal hemorrhage (2 sources) Rectal hemorrhage; 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: [Hemorrhage of anus and rectum] Onset: 4 10-13-2024 Episodic Menstrual disorders (3 sources) Dysmenorrhea, unspecified; 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: [DYSMENORRHEA UNSPECIFIED] Onset: 2 Chronic Osteoarthritis (3 sources) Primary osteoarthritis, left hand; 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: [Primary osteoarthritis, right hand] Onset: 2 11-01-2024 Chronic Other aftercare (1 source) Other termite helper (current) drug therapy; 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: [OTH SENIOR CARE CURRENT DRUG THERAPY] Onset: 2 Episodic Other and unspecified benign neoplasm (2 sources) Lipoma of abdominal wall 11-17-2014 Episodic Comment on above: X2 Other and unspecified benign neoplasm (2 sources) Adenoma of sigmoid colon 10-30-2022 Episodic Other diseases of kidney and ureters (1 source) Cyst of kidney 11-01-2024 Episodic Other female genital disorders (1 source) Abnormal uterine and vaginal bleeding, unspecified; 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: [ABNORMAL UTERINE VAGINAL BLEED UNS] Onset: 2 Chronic Other female genital disorders (2 sources) Vaginal bleeding; 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: [Abnormal uterine and vaginal bleeding, unspecified] 09-27-2024 Chronic Other gastrointestinal disorders (2 sources) Irritable bowel syndrome 10-30-2022 Chronic Other gastrointestinal disorders (1 source) Irritable bowel syndrome without diarrhea; 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: [IRRITABLE BOWEL SYND W/O DIARRHEA] Onset: 2 Chronic Other gastrointestinal disorders (1 source) Occult blood in stools; 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: [Other fecal abnormalities] 10-13-2024 Episodic Other gastrointestinal disorders (1 source) Other fecal abnormalities; 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: [Other fecal abnormalities] Onset: 4 Episodic Other liver diseases (1 source) Non-alcoholic fatty liver 11-01-2024 Chronic Other nutritional; endocrine; and metabolic disorders (8 sources) Metabolic syndrome X; 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: [Metabolic syndrome] 10-30-2022 Chronic Other nutritional; endocrine; and metabolic disorders (3 sources) Metabolic syndrome; 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: [METABOLIC SYNDROME] Onset: 2 Chronic Other nutritional; endocrine; and metabolic disorders (6 sources) Obesity; 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: [Obesity, unspecified] 11-17-2014 Chronic Other nutritional; endocrine; and metabolic disorders (1 source) Obesity, unspecified Chronic Other nutritional; endocrine; and metabolic disorders (2 sources) Body mass index 30+ - obesity 11-01-2022 Chronic Other nutritional; endocrine; and metabolic disorders (1 source) Metabolic disease; 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: [Other specified metabolic disorders] Onset: 4 Chronic Other nutritional; endocrine; and metabolic disorders (6 sources) Abnormal weight gain; 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: [ABNORMAL WEIGHT GAIN] Onset: 2 Episodic Other screening for suspected conditions (not mental disorders or infectious disease) (9 sources) Encounter for screening mammogram for malignant neoplasm of breast; 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: [Encounter for screening for malignant neoplasm of cervix] Onset: 2 Episodic Ovarian cyst (3 sources) Cyst of ovary; 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: [Unspecified ovarian cyst, right side] Onset: 2 10-30-2022 Episodic Residual codes; unclassified (9 sources) Obstructive sleep apnea syndrome; 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: [Obstructive sleep apnea (adult) (pediatric)] Onset: 2 10-30-2022 Chronic Residual codes; unclassified (5 sources) Obstructive sleep apnea (adult) (pediatric); 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: [OBSTRUCTIVE SLEEP APNEA] Onset: 2 Chronic Residual codes; unclassified (2 sources) At risk of epileptic fits 10-30-2022 Episodic [...] HX MALIGNANT NEOPLASM OVARY] Onset: 2 Episodic Residual codes; unclassified (1 source) Acquired absence of organ; 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: [Acquired absence of other specified parts of digestive tract] Onset: 4 Episodic Residual codes; unclassified (1 source) Menopause present 11-01-2024 Episodic Spondylosis; intervertebral disc disorders; other back problems (3 sources) Neck pain; 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: [Cervicalgia] 09-09-2024 Episodic Substance-related disorders (2 sources) Smoker 11-17-2014 Chronic Comment on above: Added secondary to d ocumentation in Social History. Unclassified (4 sources) CONTACT W/AND (SUSP) EXPOS COVID-19; 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: [CONTACT W/AND (SUSP) EXPOS COVID-19] Onset: 2 Unclassified (1 source) POSITIVE OCCULT TEST Onset: 4 Unclassified (1 source) positive fecal occult blood Onset: 4 Unclassified (1 source) Liver function test increased 10-29-2024 Unclassified (1 source) Steatosis 11-01-2024 Past or Other Problems Problem Classification Problem [...] [PAIN IN UNSPECIFIED JOINT] Onset: 02-19-2022 Episodic Unclassified (1 source) CONTACT W/AND (SUSP) EXPOS COVID-19; 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: [CONTACT W/AND (SUSP) EXPOS COVID-19] Onset: 12-04-2021 Results Test Name Value Interpretation Reference Range Facility Gastroenterology Office/Clin ic Noteon 11-01-2024 Gastroenterology Office/Clinic Note Gastroenterology Office/Clinic Note HPI Staff Patient is a 49 year old female who was referred by Dr Mccarty for elevated LFTs. LFTs did improve after being repeated a week later. previous EGD/ Colonoscopy - Friday, done at [facility] with Dr. Coker blood thinners- 325 daily Taking Ozempic? Yes. Acute hepatitis 10/13/24 Hep A Ab, IgM: Negative HBsAg Screen: Negative Hep B Core Ab, IgM: Negative HCV Ab: Non reactive CMP 10/07/24 Sodium: 142 Potassium: 3.9 Chloride: 106 Carbon Dioxide: 28.1 Anion Gap: 11.8 Glucose: 94 BUN: 10.0 Creatinine: 0.91 Est GFR (): >60 Est GFR (Non-): >60 BUN/creat ratio: 11.0 Calcium: 8.5 Bilirubin total: 1.0 AST: 44 High ALT: 89 High AlFIB-4: 0.47 Akaline Phosphatase: 79 Total protein: 6.2 Low Albumin: 3.3 Low Globulin: 2.9 Albumin Globulin ratio: 1.1 Repeat CMP 10/13/24 Sodium: 140 Potassium: 3.7 Chloride: 101 Carbon Dioxide: 25.8 Anion Gap: 16.9 Glucose: 89 BUN: 14.0 Creatinine: 1.02 Est GFR (): >60 Est GFR (Non-): 58 Low BUN/creat ratio: 13.7 Calcium: 9.3 Bilirubin total: 1.5 High AST: 17 ALT: 41 Alkaline Phosphatase: 63 Total protein: 7.3 Albumin: 3.9 Globulin: 3.4 Albumin Globulin ratio: 1.1 FIB-4: 0.47 CBC 10/07/24 WBC: 8.7 RBC: 3.96 Low Hgb: 12.1 Hct: 36.4 MCV: 91.9 MCH: 30.6 MCHC: 33.2 Red cell distribution width: 12.4 Platelet: 270 MPV: 10.5 Neutrophils %: 52.8 Lymphocytes %: 36.9 Monocytes %: 6.2 Eosinophils %: 3.3 Basophils %: 0.5 Immature granulocytes %: 0.3 Neutrophils Absolute: 4.6 Lymphocytes Absolute: 3.2 Monocytes Absolute: 0.5 Eosinophils Absolute: 0.3 Basophils Absolute: 0.0 Immature granulocytes Absolute: 0.03 Free T3: 3.36 (10/07/24) T4: 10.40 (10/07/24) TSH: 2.291 (10/07/24) CRP: <0.50 (10/13/24) Uric Acid: 6.4 High (10/13/24) Occult Blood: Positive (10/09/24) US RUQ 10/14/24: IMPRESSION 1. Fatty infiltration of liver 2. Cholecystectomy 3. Benign-appearing right renal cyst History of Present Illness I have reviewed HPI staff note, most recent labs and imaging, I agree with the above documentation with the following additions/exceptions : PT with transient elevation in liver tests was on meloxicam for years just started Celebrex no recent fall hepatitis panel is normal Review of Systems PHQ Score Initial Depression Screen Score: 0 SCORE Initial Depression Screen Score: 0 SCORE All systems reviewed, negative except as mentioned above Physical Exam Vitals & Measurements HR: 93(Peripheral) RR: 16 BP: 112/74 WT: 85 kg WT: 187.393 lb General: alert, no acute distress HEENT: atraumatic normocephalic Cardiovascular: regular rate and rhythm, normal peripheral perfusion Respiratory: Lungs CTA, respirations non labored Extremities: no deformity, no trauma Abdomen: Benign, soft, nontender nondistended Assessment/Plan 1. Elevated LFTs (R79.89: Other specified abnormal findings of blood chemistry) Ordered: Antimitochondrial Antibody, Quantitative IgA, Quant. IgG, Quant. Smooth Muscle Antibody Screen t-Transglutaminase IgA 2. Steatosis (E88.89: Other specified metabolic disorders) Ordered: Antimitochondrial Antibody, Quantitative IgA, Quant. IgG, Quant. Smooth Muscle Antibody Screen t-Transglutaminase IgA 3. S/P cholecystectomy (Z90.49: Acquired absence of other specified parts of digestive tract) Ordered: Antimitochondrial Antibody, Quantitative IgA, Quant. IgG, Quant. Smooth Muscle Antibody Screen t-Transglutaminase IgA Pain, smooth muscle antibodies, IgG levels, IgA levels, and celiac TTG IgA Continue to monitor liver chemistries since it normalized with repeat liver tests Most likely NSAIDs related hepatitis (DILI). Continue to monitor CMP monthly for the next 3 months Follow-up No qualifying data available Problem List/Past Medical History Ongoing Abdominal lipoma Abdominal pain, periumbilical Adenoma of sigmoid colon Anxiety Arthritis BMI 30.0-30.9,adult Cyst of kidney Elevated LFTs GERD (gastroesophageal reflux disease) History of gastric ulcer HTN (hypertension) Hypertriglyceridemia IBS (irritable bowel syndrome) Iron deficiency anemia Menopause present Metabolic syndrome X Mixed hyperlipidemia Non-alcoholic fatty liver Obesity LIZZETH (obstructive sleep apnea) Pre-diabetes Right ovarian cyst S/P cholecystectomy Seizure Smoker Spinal stenosis Steatosis Historical At risk of seizures Procedure/Surgical History excisional biopsy of enlarging painful recurrent lipomas of the left chest wall and left upper abdomen (11/21/2014), Endometrial ablation (11/21/2011), Cholecystectomy (03/28/2003), Abdominal hysterectomy, Abdominoplasty and liposuction, Arthroscopy of knee, Breast biopsy and related procedures, section, Endometrial ablation, Extraction of wisdom to (more content not included)... Normal [facility] Comment on above: Result Comment: Elec tronically Signed By: Delaney BURK, Vinayak Gregg\Date and Time Signed: 11/01/24 14:36 EST H PYLORI SCREENon 10-27-2024 H. pylori Org specific cx Ql (Sara fld) Negative [facility] Comment on above: Performed By: #### 4 4015-6 #### [facility] ([id number]) [address] [place] [address] Basic Metabolic Panelon 08-03 GFR/1.73 sq M.predicted MDRD (S/P/Bld) [Vol rate/Area] mL/min/{1.73_m2} Normal [facility] Comment on above: Performed By: #### L IPID, BMP #### [facility] [address] [place] [address] [place] Calcium [Mass/volume] in Ser um or PlasmaOrdered By: Dedrick Fuller on 08-30-2024 Calcium [Mass/Vol] 9.9 mg/dL Normal 8.6-10.[address] [facility] Comment on above: Performed By: #### L IPID, BMP #### [facility] [address] [place], [place] [id number] [place] Carbon dioxide, total [Moles /volume] in Serum or PlasmaOrdered By: Dedrick Fuller on 08-30-2024 CO2 [Moles/Vol] 26.6 mmol/L Normal 21.0-31.0 [facility] Comment on above: Performed By: #### L IPID, BMP #### [facility] [address] [id number] [place] Chloride [Moles/volume] in S altagracia or PlasmaOrdered By: Dedrick Fuller on 08-30-2024 Chloride [Moles/Vol] 104 mmol/L Normal 98-107 [facility] Comment on above: Performed By: #### L IPID, BMP #### [facility] [address] [id number] [place] Cholesterol [Mass/volume] in Serum or PlasmaOrdered By: Dedrick Fuller on 08-30-2024 Cholesterol [Mass/Vol] 218 mg/dL High 140-200 [facility] Comment on above: Chol less than 200 m g/dl low riskChol 201-239 mg/dl borderline riskChol 240 mg/dl and greater high risk Result Comment: Chol less than 200 mg/dl low risk Chol 201-239 mg/dl borderline risk Chol 240 mg/dl and greater high risk Performed By: #### L IPID, BMP #### [facility] [address] [id number] [facility] Cholesterol in LDL Calc [Mas s/Vol]Ordered By: Dedrick Fuller on 08-30-2024 Cholesterol in LDL [Mass/Vol] 134 mg/dL High 0-100 [facility] Comment on above: LDL ATP III CLASSIFI CATIONLDL less than 100 mg/dL OptimalLDL 100-129 mg/dL Near or above optimalLDL 130-159 mg/dL Borderline highLDL 160-189 mg/dL HighLDL greater than 189 mg/dL Very high Cholesterol in VLDL Calc [Ma ss/Vol]Ordered By: Dedrick Fuller on 08-30-2024 Cholesterol in VLDL [Mass/Vol] 46 mg/dL [facility] Creatinine [Mass/volume] in Serum or PlasmaOrdered By: Dedrick Fuller on 08-30-2024 Creatinine [Mass/Vol] 0.75 mg/dL Normal 0.60-1.20 [facility] Comment on above: Performed By: #### L IPID, BMP #### [facility] [address] [id number] [place] Glucose [Mass/volume] in Ser um or PlasmaOrdered By: Dedrick Fuller on 08-30-2024 Glucose [Mass/Vol] 95 mg/dL Normal 70-[address] [facility] Comment on above: ADA recommended refe rence rangeRandom Glucose Reference Range is dependent on time and content of last meal. Glucose of more than 200 mg/dL in a nonstressed, ambulatory subject supports the diagnosis of Diabetes Mellitus. Result Comment: Mitchell om Glucose Reference Range is dependent on time and content of last meal. Glucose of more than 200 mg/dL in a nonstressed, ambulatory subject supports the diagnosis of Diabetes Mellitus. ADA recommended reference range Performed By: #### L IPID, BMP #### [address] Lipid Panelon 08-30-2024 LDL Cholesterol,Calculated 134 mg/dL High 0-100 [facility] Comment on above: Result Comment: LDL ATP III CLASSIFICATION LDL less than 100 mg/dL Optimal LDL 100-129 mg/dL Near or above optimal LDL 130-159 mg/dL Borderline high LDL 160-189 mg/dL High LDL greater than 189 mg/dL Very high Performed By: #### L IPID, BMP #### [address] Triglyceride w/Reflex 231 mg/dL High 0-149 [facility] Comment on above: Result Comment: TRIG ATP III CLASSIFICATION TRIG less than 150 mg/dL Normal TRIG 150-199 mg/dL Borderline high TRIG 200-500 mg/dL High TRIG greater than 500 mg/dL Very high Standard traceable to the Center for Disease Conrtrol and Prevention (CDC) test method. Performed By: #### L IPID, BMP #### [address] VLDL CHOLESTEROL 46 mg/dL Normal [facility] Comment on above: Performed By: #### L IPID, BMP #### [address] No Panel InformationOrdered By: Dedrick Fuller on 08-30-2024 Estimated GFR (CKD-EPI) > 60.0 mL/Min [facility] Creatinine Clearance (Chem N/A [facility] Potassium [Moles/volume] in Serum or PlasmaOrdered By: Dedrick Fuller on 08-30-2024 Potassium [Moles/Vol] 4.1 mmol/L Normal 3.5-5.1 [facility] Comment on above: Performed By: #### L IPID, BMP #### [address] Serum or plasma anion gap de terminationOrdered By: Dedrick Fuller on 08-30-2024 Anion gap [Moles/Vol] 13.5 mmol/L Normal 6.0-15.0 [facility] Comment on above: Performed By: #### L IPID, BMP #### [address] Serum or plasma high density lipoprotein (HDL) cholesterol measurementOrdered By: Dedrick Fuller on 08-30-2024 Cholesterol in HDL [Mass/Vol] 38 mg/dL Normal 23-92 [facility] Comment on above: HDL CHOL ATP-III CLA SSIFICATION Cardiovascular RiskHDL > or equal to 60 mg/dL LOWHDL < 40 mg/dL HIGH Result Comment: HDL CHOL ATP-III CLASSIFICATION Cardiovascular Risk HDL > or equal to 60 mg/dL LOW HDL < 40 mg/dL HIGH Performed By: #### L IPID, BMP #### [address] Serum or plasma total choles terol/high density lipoprotein (HDL) cholesterol mass ratOrdered By: Dedrick Fuller on 08-30-2024 Cholesterol.total/Mirta sterol in HDL [Mass ratio] 5.7 {ratio} Normal <5.0 [facility] Comment on above: Result Comment: PERF ORMED BY: [place] [address] PATHOLOGIST [employer] IRMA MARCELO M.D. Performed By: #### L IPID, BMP #### [facility] [address] [place] [address] Sodium [Moles/volume] in Ser um or PlasmaOrdered By: Dedrick Fuller on 08-30-2024 Sodium [Moles/Vol] 140 mmol/L Normal 136-[address] [facility] Comment on above: Performed By: #### L IPID, BMP #### [facility] [address] [place] [address] Triglyceride [Mass/volume] i n Serum or PlasmaOrdered By: Dedrick Fuller on 08-30-2024 Triglyceride [Mass/Vol] 231 mg/dL High 0-149 [facility] Comment on above: TRIG ATP III CLASSIF ICATIONTRIG less than 150 mg/dL NormalTRIG 150-199 mg/dL Borderline highTRIG 200-500 mg/dL High TRIG greater than 500 mg/dL Very highStandard traceable to the Center for Disease Conrtrol and Prevention (CDC) test method. Urea nitrogen [Mass/volume] in Serum or PlasmaOrdered By: Dedrick Fuller on 08-30-2024 Urea nitrogen [Mass/Vol] 18 mg/dL Normal 7-25 [facility] Comment on above: Performed By: #### L IPID, [facility] #### [facility] [address] [id number] [facility] Coding Summaryon 03-19-2024 Coding Summary HTMLBase 64 TpllzxbtGEz5tPc+PGhlY WQ+PC7PUFFjV61upOFmnE 6xN0FTUMwNXffqHSODLId MIrHbkhYlEW7eaXIbOSYy IC8+RF8qTGOmFzdoqFNib 8M1lGK4D91kdb8yLCixiV I6PZJrPmLvgrvbo1twfLq 6IDcuNmluOyBt NHEsgR04MRF0lM60Wv54y NKyqMQuq4pszGq4JyLlTE DzPNB9xDquFUasl9XpTLG iH19haAUth4O8 KJTvgYelwMNuKjWquFF7d J5dVJxsxpqxz2bgoikmMj z9bv78dMZtt0Q1pLK5K8D bjuN1WXFtqENw BtxhlACJoS4jdyfmm1wka ogpXyFhDRYqTMy6SFf4TH AnlBecRvZaGJ15WEK2DKS yrgTmU8VkSTVm lDdrKkG0a6J5Hm2BE7NRF gpfZ0IKJQVAVDpexQW+PC 77mc86D4NoQvnpGqd9AKU mYXK8eNS4aO8m ELYbRXkfl1L7gEO9U9Jxe tXrkb2np5idQLTqZWayG8 4nhPWds4H7YDDgbAR7RFT wnBueOtUmfI22 Oyc+PWTqyHpsf3GpRuswo 1eay1xdaWo9KjysAFSgxf GhpQqeCVQ3l4JtZm8dYFL mwYR7sNL7pQ4d NiUnTlA3YMhhA689DgQuu DIkJltsS24vI3OedWQ+PH QuIyv7RAKqbRqpTS4iM6N hZGRpbmctbGVm mSdaPV3gVTBtomrbNFBjg Q3dLHDoM7f2VzLaPfG9YF nzH0SiNUJcldpeJf94oI6 jDeNsRvH5HOic K0HpfqZ6QTCewKXlAAltE AI8P64fl3M2CRPwWJJjXW R0qJH8tP8ebExfpqgccNM mdDsgdmVydGlj IRsfOQbxA758ZLAfxPhaO kNvZGluZyBEYXRlOiAgMD QvMTkvMjAyNDwvdGQ+PHR yIBF4wVnyILTq wTOuPSpwEj0ldPthsCwfH K3fYIGyikdkXMZlwX5pRM GlvUCajMarKW5oJANhqor am879KhXfGIW9 UHDweMOoF7UsbA9vPzNcJ DRlOWFbC8RpeABbLGrpF9 90JBbgCfW0CDWphfBwJ9F sLWFsaWduOiB0 t9V9Tu2Dx3DcwiypM1Dip SVrMzBwAaevCZv2A8SwHd wvdHI+XR48KHHmEY96LDi 7TLC5eKcqDAnn NGKsA8MjcG7tAqEsAEYcB GRkOyc+PHRhYmxlIHdpZH RoPScxMDAlJyBzdHlsZT0 sFs2tGMXgMTKy pIpznUOvRmUbb4prFHUfZ SeeTJ3uaJevN0ZugPZ9MZ Weu4p9Kz30A72sF6FesTD +EBJgdBO4vEB1 gK0nVkTmCfV3WZfbR836U tPgzVAlJcrco0chr1qnoI f1PzT6NHIprjJylTdqPZB 7v9OlZm46P78b IHdpZHRoPSIxNSUiIHZhb Prsbm6ojW9lRk7+PGNvbC X1uHM2dE3lPcUbCzP0XMj yE541DpOkrOUn Toiit1qjq4urgVh2FrRvT QSkxuVlfKcrXHS3p3JcGa 64W2YqkSwll8KmSpx6bq9 0fHZef6V5uIR8 N7UuRJQsduibyFTjhFkqB Q0dILRphjimHXTahU9bPZ MiZ7l0XmJmGdT9UJvrW2L bqzJ6DIAcfFAj IYKpvCRUjM3lqcgoy0gyu swvJoGjAYJjQPg7QYc4MI WesHaaSuVbDIE1UpO6NLH 2qNKatC4faNsm ibsqbA9sEhi+BPC5pJGji QRVNA8mBwhuaFA+PHRkIH G4jNfuXWvkMOExiE2oEJV pM7u5BvGsGvI0 HFnfO4IuveG6LTHwfICwY RZhiOAXrX4gkonns9xvkl lzOeRiLBMtOZr9OSw4QXQ saWduOiBsZWZ0 WcJ7MLO6mTXeyA7btWaqg kjqqR0xEfs+QmlydGggRG K7BNf7I6WdXsx9NWJndAv zES6zuKSsJSij On6hoCzrqLknSR6iDGPfu vkae208DrOju5szTCVfxK GiYDiwQAV1R29kq6P6DEI pLNVhJAS7qPV9 jH5zbCctlyiqqDVvtZkem wNljAczVWxaDYlsX768EQ ReiAijYtJqTOi2U7TbWrn 2VNAglIfaBE4n fUXtSUksSm5enJscvVtjV F8bAPAppopud339PoSbr3 izESXycNRsWRyiMPB6Q57 cd2K2OFKqZBNj FYA2mFW3wV8twTjmqritj GVmdDsgdmVydGljYWwtYW scY262GYMhsVinEzGpyPx 6P0HfMnt7UWTk lCizMT0vlMVoTJltKz7ii FlboSxvUH8jPKFhbbhbq2 00GkOgh2vdUKWscYKzCRe oSFL6F36kj4I6 AKRnBEEnIWH6uVU9yB2zt GlnbjogbGVmdDsgdmVydG tlHCxsJGjnN767APSseFd nPlBhdGllbnQg DYxjSFx0I3XuTwomkNH+P K25UBDpRI53vHIdeSMdq7 gzgGe7XnXzMTJxBKI3tMv tIEvtt8ZrDSYj B82bjUKhc7F2EWVefSolo BAyEyAkbEX8bQ4aJTflha gyd2ypnydgNabay2kzff5 2cD15V20uVHtw ZHRoPSIzMCUiIHZhbGlnb n1lvC1uPq1+TYSqpZA5gC M5xG8nOENzEyH4IEpqC82 9InRvcCIvPjxj l4kas6cjyWe7PvY5CPNrb xWllYlbYLH1z7WiAw34Q6 9sIHdpZHRoPSIyMCUiIHZ sdElrzg8mgK7e Ii8+BKMciWJ7zMJ4fY5qG lHcJoW2TOnbK034GeOrqV FfNnacC91jA6ItcHT+PHR aAwr0WBRcxAaa TP5zdVPnIXqkLs3kXHE4R lQsScBySYceP6AkUHEoqn oqlyekfHJ3WFKdMBTedR3 8Rx6yqAfjGLVw hDLOfS4auvqtz2ocvxlvZ nNwRZCmCTu8RGd2QZIeyK wcFhNqALN1BxN2NCD1zNE hqU6npOgvyqxn cB8oR9DcNAPhiqshLd00b W4wZnFsNrY9XBhmLmm+Q0 3DPLOXXRLBCZMRSL4IAH0 JC55QUWyjaDK+ KSLrTPA1xVulNPbcNTDvn L8gIXNiD2v4DaPnMyP2TT oyQ8AiIBXujfyrPt13aQ1 fIzEhKlW3WEjl D1EjxiC3FEWthTMvHTosT RY2I15uk2X8HAEtXGIwTN W5oMP4zY2zfCofeemjhVN mdDsgdmVydGlj UAyeSKkhQ901TXSvwKreR aL5FsU0AqF5BvO3V1RhOu x2ZIEpmKfxMU6dsBMtMOq zKe9jfXchpLzx NO6oQBSlatcpLEBiaW1uF UKfqVQblQhoEC4lDOJrgm izv158TuBmOXY4XENtcVJ oJ3NedG6uRyBu HPBdEPWdX7DhaWTjICwtM 428GDvxGvH5GMEoyxVbX5 FlBCLkeFwaPlV1r3B3Vy2 0NyBZZWFyczwv dGQ+TDRvSQS0bOehCDxbY KVtgF1eYBClO0a7KdEtQo A1LPaaH6WxAYDfcpvbFd8 4vI9aYhViVxD7 ULnxL0KxfhC5JAVpjPTnE JuuZZZ6B22ri6N2QHFqWL QbWFM4fXM4iI0rtHrdvfm gbGVmdDsgdmVy vCuoHBkaLUtiT767MIMze DsnPkZFTUFMRTwvdGQ+PH EdEOA7iYqoXVhxJJHviD3 bXFNdZ6u1GgQy AgS1KQhtE5RaGTJbpjcnN b33yW1vXwLwSrW0GOwoB9 XjgrP4KCShmLDoDIiqCQV 2V47ov0I0HCJc FMOrVII0pMO6wI5ooRoru jogbGVmdDsgdmVydGljYW wmFKyuU466NELqnTffXaK pEAMyBH9buKam dGQ+DQ62os56O1GaHtpjO gx3NBGiJHS3tGU3qK3jPT EtMJrfh9R9pSG5J3IpxrF gtb4pf9jrDQBj MNcsR03baCVsl7R5YOSyf RS0UQLlaXehRfNkrQ07Gm c+YZKrgGdte4QvDsnzv8b aw3pvtNz9AqAz XYOhblWcgEymRME1q6FxE l90M15nDSotNTTcGCTrYZ GmIIRgpViadb3vhL2fJf7 +VIQscCP9uCC8 xF1kPnLbHaA0JTcqR987I wDzfSZpItmlp2dly1gweR z2RlVkAGMphpLcuCrnVGC 2g6GlIf15F0Za bCuto9PvDog2ao74mXOgv 1S4nUQ8P0PpLQWimirggT MudXprRS3wXAPiogfyWAH koP4zANWdQ3r3 ArSrRpU2FLteT5YforB3U WSjpPBoHQQifDYBeO4klg baj9bqlxvcRsAgGVEhPMj 3ITm0MQGkpFli NeGoDDQ5GrX6YNX3eFPcj L9xjVmibuejpA4tSwt+UG s0p7npuNKtNF3swWV2TJ7 6FZ03tKLpq7O7 yBE1G3JkRGAurdrqrsijd DY9QRKwJYZbdW65Pi8xuM hsCo3mNUCgQIA2ZERodMG bW2LgaT1oMpHg TEJmJFKuU4AbdCNeENsxP 794HDmpRkW8UINbbvKdU1 DpGFIzoGuzXiU4y2Y0Mx9 VLS67GA24ZA12 pGHxk2S8uOM1D2QnTNIbx ixryrgvcJV9OLWvJYUdxP 99Uy2onRctQq2rMBDsMZC 9EVIxyZSjF5Iv wC4dTwWcZGWwBFCxB8Vsb NQjHIyaG569TIyxOmT2ZM SpmeAnU3TnLAKvbMeiGjO 4r4Z0Hk1NKt11 PD06IT84vQDhb2H5aYN0U 0UkULSgoxbfezghgIV9BH FvEXDwrK97In7hrDfkRx6 vGMQvAAP8GXOp sEDgO2BbzP7pFjMoQKIwG HIkJ0UkgBFbLWplO912BI tzEtX9CWTbjgCnI0IzXCP jrBjgBeP5t9F6 Zu8AEOzmyds5U7BvBumbe HI+HI74JCPkRX63iRPesU Rvy1dcdJa6AbChPXNrLOI 7sQocVJyut4Hb ZXI (more content not included)... Normal [facility] Noteon 03-17-2024 Ambulance Note [id number]#1.00 OTGTIFF Normal [facility] C Urineon 03-17-2024 C Urine Urine Culture ordere d as a result of parameters set on specific urine dip and urine microsopic results. >100,000 cfu/ml Lactobacillus species Normal vaginal oleg isolated 10,000 cfu/ml Corynebacterium species (DIPTHEROID) No YOLANDE performed on this organism No pathogens isolated [facility] Comment on above: Performed By: #### 5 [id number], [id number], [id number] #### (DEFAULT)[address] [place] [address] .Auto Diff 1on 03-15-2024 Auto [place] % 3 % Normal 12-12 [facility] Comment on above: Performed By: #### 5 [id number], [id number], [id number], 35666438, 7133222241, 9624582, 6377580 #### (DEFAULT) [address] [place] [address] Baso Abs# 0.1 x10 Normal 0.0-0.2 [facility] Comment on above: Performed By: #### 5 [id number], [id number], 0908941370, 94897748, 4248952059, 9667993, 5671025 #### (DEFAULT) [address] [place] [address] 29601 Basophils/100 WBC (Bld) 0.7 % Normal 0.2-2.0 [facility] Comment on above: Performed By: #### 5 [id number], 1375821972, 1385569196, 95196807, 2636719851, 8470429, 5635145 #### (DEFAULT) [address] [place] [address]758 Eos Abs# 0.1 x10 Normal 0.0-0.4 [facility] Comment on above: Performed By: #### 5 [id number], 5582147112, 5561362864, 99371200, 5737159872, 0549789, 7586207 #### (DEFAULT) [address] [place] [address]150 Eosinophils/100 WBC (Bld) 0.7 % Low 0.9-4.0 [facility] Comment on above: Performed By: #### 5 [id number], 1650627751, 1358236137, 73779919, 1880429063, 1458825, 1555145 #### (DEFAULT) [address] [place] [address]5523 Lymph Abs# 2.2 x10 Normal 1.3-2.9 [facility] Comment on above: Performed By: #### 5 [id number], 3621428519, 7568585123, 89900007, 7926905364, 2869440, 6172081 #### (DEFAULT) [address] [place] [address] 46431 Lymphocytes/100 WBC (Bld) 14 % Normal 14-48 [facility] Comment on above: Performed By: #### 5 [id number], 8448914627, 9664902210, 49470839, 4902408487, 1292836, 9035835 #### (DEFAULT) [address] [place] [address] [place] Abs# 0.5 x10 Normal 0.0-0.8 [facility] Comment on above: Performed By: #### 5 [id number], [id number], 8733540007, 34252883, 7850563553, 8353709, 6440651 #### (DEFAULT) [address] [place] [address] Neut Abs# 13.5 x10 High 1.5-9.2 [facility] Comment on above: Result Comment: Slid e Reviewed Performed By: #### 5 [id number], [id number], 1452161953, 11324290, 8551781295, 4827440, 8945859 #### (DEFAULT) [address] [place] [address] Neutrophils/100 WBC (Bld) 82 % Normal 44-88 [facility] Comment on above: Performed By: #### 5 [id number], 8645384545, 4976722029, 70772523, 6252206351, 5687542, 8460157 #### (DEFAULT) [address] [place] [address] CBC w/ Auto Diffon 4 Erythrocyte distribution width (RBC) [Ratio] 13.3 % Normal 11.5-15.0 [facility] Comment on above: Performed By: #### 5 [id number], 1643161706, 5341425373, 49908171, 5075425238, 0665726, 0536823 #### (DEFAULT) [address] [place] [address] Hematocrit (Bld) [Volume fraction] 45.0 % High 33.7-40.4 [facility] Comment on above: Performed By: #### 5 [id number], 2909649497, 4650707104, 53443842, 9104591234, 2165503, 1179357 #### (DEFAULT) [address] [place] [address] Hemoglobin (Bld) [Mass/Vol] 15.0 g/dL Normal 11.3-15.9 [facility] Comment on above: Performed By: #### 5 [id number], 5921172127, 0961272882, 02670694, 5679528072, 2151109, 7526336 #### (DEFAULT) [address] [place] [address] Man Diff? Auto Invalid Interpretation Code [facility] Comment on above: Performed By: #### 5 [id number], [id number], 9345616719, 06772144, 9150777410, 2895601, 5414899 #### (DEFAULT) [address] [place] [address] 02665 MCH (RBC) [Entitic mass] 32 pg Normal 24-34 [facility] Comment on above: Performed By: #### 5 [id number], 5396834004, 9869089510, 17064391, 1615523098, 3043127, 7813596 #### (DEFAULT) [address] [place] [address] MCHC (RBC) [Mass/Vol] 33 g/dL Normal 26-37 [facility] Comment on above: Performed By: #### 5 [id number], 4274971786, 4953305201, 16067661, 1823755351, 6227141, 2554039 #### (DEFAULT) [address] [place] [address] 81781 MCV (RBC) [Entitic vol] 95 fL Normal 81-100 [facility] Comment on above: Performed By: #### 5 [id number], 1942340095, 0386675125, 88385289, 2221804345, 3184096, 7065098 #### (DEFAULT) [address] [place] [address] 63207 Platelet 292 x10 Normal 138-427 [facility] Comment on above: Performed By: #### 5 [id number], 6817028185, 0190377974, 99594330, 6423591694, 1578659, 8746904 #### (DEFAULT) [address] [place] [address] 31758 Platelet mean volume (Bld) [Entitic vol] 8.7 fL Normal 6.3-10.2 [facility] Comment on above: Performed By: #### 5 [id number], 3396887306, 9141769890, 63846074, 4574787097, 6185746, 4982452 #### (DEFAULT) [address] [place] [address] 23735 RBC 4.74 x10 Normal 3.70-5.30 [facility] Comment on above: Performed By: #### 5 [id number], 1833885440, 1653827055, 07480977, 9291877482, 4094711, 3012954 #### (DEFAULT) [address] [place] [address] 24383 WBC 16.4 x10 High 3.5-10.5 [facility] Comment on above: Performed By: #### 5 [id number], 3346642052, 0421822543, 60183961, 2628341541, 6898712, 8251758 #### (DEFAULT) [address] [place] [address] 07059 CMP Standardon 03-15-2024 eGFR Non AA >60 Invalid Interpretation Code [facility] Comment on above: Performed By: #### 5 [id number], 9072571265, 7772874978, 10207098, 4721876550, 2669717, 6401953 #### (DEFAULT) [address] [place] [address] 60225 eGFR AA >60 Invalid Interpretation Code [facility] Comment on above: Performed By: #### 5 [id number], 0297531464, 4541291243, 06438297, 1686611852, 8097139, 8231387 #### (DEFAULT) [address] [place] [address] 35088 Albumin [Mass/Vol] 4.1 g/dL Normal 3.5-5.0 [facility] Comment on above: Performed By: #### 5 [id number], 8848447907, 7194842986, 95254021, 3851970438, 9600275, 5546913 #### (DEFAULT) [address] [place] [address] 76113 Albumin/Globulin [Mass ratio] 1.3 {ratio} Low 1.4-2.6 [facility] Comment on above: Performed By: #### 5 [id number], 1006046870, 8890237084, 77240097, 4543440168, 9260505, 3771915 #### (DEFAULT) [address] [place] [address] 75656 Alk Phos 39 IU/L Normal 32-91 [facility] Comment on above: Performed By: #### 5 [id number], [id number], [id number], 48533961, 3826029063, 2040739, 7646411 #### (DEFAULT) [address] [place] [address] 90751 ALT [Catalytic activity/Vol] 32.0 U/L Normal 14.0-54.0 [facility] Comment on above: Performed By: #### 5 [id number], [id number], 6180028413, 03849306, 6058286800, 9174221, 6929395 #### (DEFAULT) [address] [place] [address] 31250 Anion gap [Moles/Vol] 13.0 mmol/L Normal 5.0-19.0 [facility] Comment on above: Performed By: #### 5 [id number], [id number], 4638587878, 39985247, 0202746711, 9163547, 6363822 #### (DEFAULT) [address] [place] [address] 44965 AST [Catalytic activity/Vol] 25 U/L Normal 15-41 [facility] Comment on above: Performed By: #### 5 [id number], [id number], 0470154107, 85995886, 3365635419, 9602838, 5995944 #### (DEFAULT) [address] [place] [address] 69076 Bili Total 1.4 mg/dL High 0.3-1.2 [facility] Comment on above: Performed By: #### 5 [id number], 6937745201, 9441233992, 52396625, 8363641719, 9823085, 3199891 #### (DEFAULT) [address] [place] [address] 11100 Calcium [Mass/Vol] 8.8 mg/dL Low 8.9-10.3 [facility] Comment on above: Performed By: #### 5 [id number], 8951344078, 1164626378, 15329438, 2482521231, 8220557, 9744857 #### (DEFAULT) [address] [place] [address] 25677 Chloride [Moles/Vol] 105 mmol/L Normal 101-111 [facility] Comment on above: Performed By: #### 5 [id number], 0904534576, 2861647517, 72075437, 3323784134, 6764748, 5835225 #### (DEFAULT) [address] [place] [address] 87256 CO2 [Moles/Vol] 24 mmol/L Normal 21-32 [facility] Comment on above: Performed By: #### 5 [id number], 6822297142, 0290252921, 95399776, 7379953554, 5758688, 3692900 #### (DEFAULT) [address] [place] [address] 78494 Creatinine [Mass/Vol] 0.72 mg/dL Normal 0.60-1.30 [facility] Comment on above: Performed By: #### 5 [id number], 4984980686, 9421235334, 80440167, 7870488953, 1340860, 8656205 #### (DEFAULT) [address] [place] [address] 31004 Globulin (S) [Mass/Vol] 3.0 g/dL Normal 1.5-4.3 [facility] Comment on above: Performed By: #### 5 [id number], 2584384204, 6131245984, 92194313, 6246991165, 2209246, 3520279 #### (DEFAULT) [address] [place] [address] 94957 Glucose [Mass/Vol] 124.0 mg/dL High 74.0-118.0 [facility] Comment on above: Performed By: #### 5 [id number], 0492181505, 0393642554, 97436175, 4883244913, 2354427, 5177237 #### (DEFAULT) [address] [place] [address] 95458 Osmolality 278 mOsm/L Invalid Interpretation Code [facility] Comment on above: Performed By: #### 5 [id number], 3593620449, 8807379723, 94077628, 5379023478, 3045304, 3197257 #### (DEFAULT) [address] [place] [address] 03669 Potassium [Moles/Vol] 4.0 mmol/L Normal 3.6-5.1 [facility] Comment on above: Performed By: #### 5 [id number], 3754641322, 2303345378, 74560478, 8385482198, 8867531, 0316973 #### (DEFAULT) [address] [place] [address] 10454 Protein [Mass/Vol] 7.1 g/dL Normal 6.5-8.1 [facility] Comment on above: Performed By: #### 5 [id number], 9307672285, 4251724112, 71581471, 1952056960, 5663467, 2983758 #### (DEFAULT) [address] [place] [address] 46969 Sodium [Moles/Vol] 138.0 mmol/L Normal 136.0-144.0 [facility] Comment on above: Performed By: #### 5 [id number], 8410053437, 8771687681, 66006196, 9345314471, 6266556, 5557287 #### (DEFAULT) [address] [place] [address] 08722 Urea nitrogen [Mass/Vol] 15 mg/dL Normal 8-26 [facility] Comment on above: Performed By: #### 5 [id number], 6089766709, 1936602218, 07218393, 7016100614, 1544054, 9533075 #### (DEFAULT) [address] [place] [address] 64548 Urea nitrogen/Creatinine [Mass ratio] 20.8 mg/mg High 4.6-16.2 [facility] Comment on above: Performed By: #### 5 [id number], 8516102280, 4399406925, 79729204, 2503328088, 7491133, 9582633 #### (DEFAULT) [address] [place] [address] 91763 Breakpoint Chem Normal [facility] Comment on above: Performed By: #### 5 [id number], 0943342095, 7936992603, 35942853, 0758745093, 0550464, 4698404 #### (DEFAULT) [address] [place] [address] 92986 ED Clinical Summaryon 2023 ED Clinical Summary [facility] - Emergency Department [address] [place], [place] [id number] ED Clinical Summary PERSON INFORMATION Name: HORACIO KEATING Age: 48 Years Sex: FEMALE : 1975 MRN: Acct#: Visit Reason: Shortness of breath; Anxiety; Blood pressure check; SOB Arrival: 03/15/2024 17:56:51 Discharge: 03/15/2024 20:31:00 LOS: 000 02:35 Check In: 03/15/2024 17:56:51 Checkout:03/15/2024 20:31:00 Address: [address] [place] [address] PCP: SAMI MCCARTY PROVIDER INFORMATION Provider Role Assigned Unassigned Nicola Neff DO ED Provider 03/15/2024 18:07:25 Solange MALHOTRA, Shanika Lawton ED Nurse 03/15/2024 18:08:57 Joanna Angeles QUANTITATIVE SOFTWARE ENGINEER Nurse 03/15/2024 19:24:01 VITALS INFORMATION Vital Sign [...] . Physical Exa (more content not included)... [facility] ED Note - Physicianon 2023 ED [...] No lymphadenopathy. Psychiatric: (more content not included)... [facility] ED Note-Nursingon 03-15-2024 ED Note-Nursing Patient presents to the ER via [facility] for shortness of breath, anxiety. Patient [...] cannula. 12 lead was regular in rate [facility] ED Patient Summaryon 024 ED Patient Summary [facility] - Emergency Department [address] [place] [address] PATIENT DISCHARGE INSTRUCTIONS Patient Information Name: HORACIO KEATING Age: 48 Years Date of : 1975 Reason For Visit: Shortness of breath; Anxiety; Blood pressure check; SOB Arrival Time: 03/15/2024 17:56:51 Primary Care Physician: SAMI MCCARTY Attending Physician: Nicola Neff DO Comment: Visit Diagnosis: Diagnoses This Visit Anxiety ([id number]) Blood pressure check ([id number]) Hypertension (I10) Panic attack (F41.0) Shortness of breath ([id number]) Urinary tract infection (N39.0) The Pharmacy at [facility] is open Friday through Friday from 9A [...] alcohol and/or drug addiction problems; contact the [facility] 23/06 Crisis Hotline -Text 8RRXY to [phone]. If you received any narcotics, sedation, or [...] any legal documents With: Address: When: SAMI MCCARTY [address] [place] [address] [place] [address] Business (1) Within 3 to 5 days Comments: Call for follow up appointment Return if symptoms worsen Medication Information: The exam and treatment you received today in the [facility] Emergency Department were for an urgent problem and are not intended as complete care. It is important for you to follow up with a doctor, nurse practitioner, or physician?s commercial lines account assistant for ongoing care. If your symptoms [...] so we can reach you if necessary. [facility] Emergency Department has provided you with a complete list of medications post discharge. Please inform your supervisor game farm/provider of your visit and for further instruction [...] Vitals an (more content not included)... Normal [facility] Extra Greenon 03-15-2024 Tube Collected Yes Invalid Interpretation Code [facility] Comment on above: Performed By: #### 5 [id number], [id number], [id number], [id number], [id number], [id number], [id number] #### (DEFAULT) [address] [place] [id number] Extra Redon 03-15-2024 Tube Collected Yes Invalid Interpretation Code [facility] Comment on above: Performed By: #### 5 [id number], [id number], [id number], [id number], [id number], [id number], [id number] #### (DEFAULT) [address] [place] [address] 81720 PTon 03-15-2024 INR Coag (PPP) [Relative time] 0.94 {INR} Normal 0.91-1.11 [facility] Comment on above: Performed By: #### 5 [id number], [id number], [id number], [id number], [id number], [id number], [id number] #### (DEFAULT) [address] [place] [address] 21506 PT 9.8 second(s) Normal 9.7-11.8 [facility] Comment on above: Performed By: #### 5 [id number], [id number], [id number], [id number], [id number], [id number], [id number] #### (DEFAULT) [address] [place] [address] 26351 TnI HSon 03-15-2024 Troponin I High Sensitivity 7.7 pg/mL Normal <=15.0 [facility] Comment on above: Performed By: #### 5 [id number], [id number], [id number], [id number], [id number], [id number], [id number] #### (DEFAULT) [address] [place] [address] 71148 UA Ovuuh2oq 03-15-2024 UA Amorph. 1+ Normal [facility] Comment on above: Order Comment: Urina lysis Microscopic order added on by Discern Expert Rules system. Performed By: #### 5 [id number], [id number], [id number] #### (DEFAULT)[address] [place] [address] UA Bacteria 3+ Normal [facility] Comment on above: Order Comment: Urina lysis Microscopic order added on by Discern Expert Rules system. Performed By: #### 5 [id number], [id number], [id number] #### (DEFAULT)[address] [place] [address] UA Mucous 1+ [facility] Comment on above: Order Comment: Urina lysis Microscopic order added on by Discern Expert Rules system. Performed By: #### 5 [id number], [id number], [id number] #### (DEFAULT)[address] [place] [address] UA RBC 3-5 [facility] Comment on above: Order Comment: Urina lysis Microscopic order added on by Zyante Expert Rules system. Performed By: #### 5 [id number], [id number], [id number] #### (DEFAULT)[address] [place] [address] UA Renal Epi Rare Normal [facility] Comment on above: Order Comment: Urina lysis Microscopic order added on by Zyante Expert Rules system. Performed By: #### 5 [id number], [id number], [id number] #### (DEFAULT)[address] [place] [address] UA Squam Epi Many Normal [facility] Comment on above: Order Comment: Urina lysis Microscopic order added on by Discern Expert Rules system. Performed By: #### 5 [id number], [id number], [id number] #### (DEFAULT)[address] [place] [address] UA WBC 3-5 [facility] Comment on above: Order Comment: Urina lysis Microscopic order added on by Discern Expert Rules system. Performed By: #### 5 [id number], [id number], [id number] #### (DEFAULT)[address] [place] [address] UA w Culture if Ind Standard on 03-15-2024 Breakpoint UA [facility] Comment on above: Performed By: #### 5 [id number], [id number], [id number] #### (DEFAULT)[address] [place] [address] Color (U) Yellow Normal [facility] Comment on above: Performed By: #### 5 [id number], [id number], [id number] #### (DEFAULT)[address] [place] [address] Culture? Indicated Invalid Interpretation Code [facility] Comment on above: Result Comment: Resu lt created by rule GL_MAGR_ADD_UA_CULT Result created by rule GL_MAGR_ADD_UA_CULT Result created by rule GL_MAGR_ADD_UA_CULT1 Result created by rule GL_MAGR_ADD_UA_CULT Performed By: #### 5 [id number], [id number], [id number] #### (DEFAULT)[address] [place] [address] Glucose (U) [Mass/Vol] Negative Normal [facility] Comment on above: Performed By: #### 5 [id number], [id number], [id number] #### (DEFAULT)[address] [place] [address] Ketones Ql (U) Negative [facility] Comment on above: Performed By: #### 5 [id number], [id number], [id number] #### (DEFAULT)[address] [place] [address] Micro? Indicated Invalid Interpretation Code [facility] Comment on above: Result Comment: Resu lt created by rule GL_MAGR_ADD_UA_MICRO Performed By: #### 5 [id number], [id number], [id number] #### (DEFAULT)[address] [place] [address] UA Bilirubin Negative [facility] Comment on above: Performed By: #### 5 [id number], [id number], [id number] #### (DEFAULT)[address] [place] [address] UA Blood TRACE Abnormal NEGATIVE [facility] Comment on above: Performed By: #### 5 [id number], [id number], [id number] #### (DEFAULT)[address] [place] [address] UA Clarity SL CLOUDY Abnormal CLEAR [facility] Comment on above: Performed By: #### 5 [id number], [id number], [id number] #### (DEFAULT)[address] [place] [address] UA Leuk Est LARGE Abnormal NEGATIVE [facility] Comment on above: Performed By: #### 5 [id number], [id number], [id number] #### (DEFAULT)[address] [place] [address] UA Nitrite Negative Normal NEGATIVE [facility] Comment on above: Performed By: #### 5 [id number], [id number], [id number] #### (DEFAULT)[address] [place] [address] UA pH 6.0 Normal 5-8 [facility] Comment on above: Performed By: #### 5 [id number], [id number], [id number] #### (DEFAULT)[address] [place] [address] UA Protein Negative Normal NEGATIVE [facility] Comment on above: Performed By: #### 5 [id number], [id number], [id number] #### (DEFAULT)[address] [place] [address] UA Spec Grav 1.015 Normal 1.001-1.035 [facility] Comment on above: Performed By: #### 5 [id number], [id number], [id number] #### (DEFAULT)[address] [place] [address] UA Urobilinogen 0.2 mg/dL Normal 0.2-1.0 [facility] Comment on above: Performed By: #### 5 [id number], [id number], [id number] #### (DEFAULT)[address] [place] [address] Urine Source Clean Catch Normal [facility] Comment on above: Performed By: #### 5 [id number], [id number], [id number] #### (DEFAULT)[address] [place] [address] XR Chest 1 View Frontalon XR Chest [...] MD 03/15/24 7:34 pm Technologist: Lizzy BRICEÑO [facility] Calcium [Mass/volume] in Ser um or PlasmaOrdered By: Dedrick Fuller on 08-15-2023 Calcium [Mass/Vol] 9.1 mg/dL 8.6-10.[address] [facility] Carbon dioxide, total [Moles /volume] in Serum or PlasmaOrdered By: Dedrick Fuller on 08-15-2023 CO2 [Moles/Vol] 26.7 mmol/L 21.0-31.0 [facility] Chloride [Moles/volume] in S altagracia or PlasmaOrdered By: Dedrick Fuller on 08-15-2023 Chloride [Moles/Vol] 107 mmol/L 98-107 [facility] Cholesterol [Mass/volume] in Serum or PlasmaOrdered By: Dedrick Fuller on 08-15-2023 Cholesterol [Mass/Vol] 166 mg/dL 140-200 [facility] Comment on above: Chol less than 200 m g/dl low riskChol 201-239 mg/dl borderline riskChol 240 mg/dl and greater high risk Cholesterol in LDL Calc [Mas s/Vol]Ordered By: Dedrick Fuller on 08-15-2023 Cholesterol in LDL [Mass/Vol] 95 mg/dL 0-100 [facility] Comment on above: LDL ATP III CLASSIFI CATIONLDL less than 100 mg/dL OptimalLDL 100-129 mg/dL Near or above optimalLDL 130-159 mg/dL Borderline highLDL 160-189 mg/dL HighLDL greater than 189 mg/dL Very high Cholesterol in VLDL Calc [Ma ss/Vol]Ordered By: Dedrick Fuller on 08-15-2023 Cholesterol in VLDL [Mass/Vol] 32 mg/dL [facility] Creatinine [Mass/volume] in Serum or PlasmaOrdered By: Dedrick Fuller on 08-15-2023 Creatinine [Mass/Vol] 0.77 mg/dL 0.60-1.20 [facility] Glucose [Mass/volume] in Ser um or PlasmaOrdered By: Dedrick Fuller on 08-15-2023 Glucose [Mass/Vol] 97 mg/dL 70-[address] [facility] Comment on above: ADA recommended refe rence rangeRandom Glucose Reference Range is dependent on time and content of last meal. Glucose of more than 200 mg/dL in a nonstressed, ambulatory subject supports the diagnosis of Diabetes Mellitus. No Panel InformationOrdered By: Dedrick Fuller on 08-15-2023 Estimated GFR (CKD-EPI) > 60.0 mL/Min [facility] Creatinine Clearance (Chem N/A [facility] Potassium [Moles/volume] in Serum or PlasmaOrdered By: Dedrick Fuller on 08-15-2023 Potassium [Moles/Vol] 4.0 mmol/L 3.5-5.1 [facility] Serum or plasma anion gap de terminationOrdered By: Dedrick Fuller on 08-15-2023 Anion gap [Moles/Vol] 10.3 mmol/L 6.0-15.0 [facility] Serum or plasma high density lipoprotein (HDL) cholesterol measurementOrdered By: Dedrick Fuller on 08-15-2023 Cholesterol in HDL [Mass/Vol] 39 mg/dL 23-92 [facility] Comment on above: HDL CHOL ATP-III CLA SSIFICATION Cardiovascular RiskHDL > or equal to 60 mg/dL LOWHDL < 40 mg/dL HIGH Serum or plasma total choles terol/high density lipoprotein (HDL) cholesterol mass ratOrdered By: Dedrick Fuller on 08-15-2023 Cholesterol.total/Mirta sterol in HDL [Mass ratio] 4.3 {ratio} <5.0 [facility] Sodium [Moles/volume] in Ser um or PlasmaOrdered By: Dedrick Fuller on 08-15-2023 Sodium [Moles/Vol] 140 mmol/L 136-[address] [facility] Triglyceride [Mass/volume] i n Serum or PlasmaOrdered By: Dedrick Fuller on 08-15-2023 Triglyceride [Mass/Vol] 162 mg/dL 0-149 [facility] Comment on above: TRIG ATP III CLASSIF ICATIONTRIG less than 150 mg/dL NormalTRIG 150-199 mg/dL Borderline highTRIG 200-500 mg/dL High TRIG greater than 500 mg/dL Very highStandard traceable to the Center for Disease Conrtrol and Prevention (CDC) test method. Urea nitrogen [Mass/volume] in Serum or PlasmaOrdered By: Dedrick Fuller on 08-15-2023 Urea nitrogen [Mass/Vol] 10 mg/dL 06-24 [facility] GTT 2 HRon 11-09-2022 Glucose [Mass/Vol] 107 mg/dL Critically high 74-106 [facility] Comment on above: Performed By: #### U LG, CRP #### [facility] [address] [address] [address] Soo Donnelly Glucose [Mass/Vol] 152 mg/dL Normal [facility] Comment on above: Performed By: #### U LG, CRP #### [facility] [address] [address] [address] Soo Donnelly Glucose [Mass/Vol] 121 mg/dL Normal [facility] Comment on above: Performed By: #### U LG, CRP #### [facility] [address] ABD/PELV W CONon [...] LUZ ELENA SAUCEDA Date: 2022-10-01 10:31 Normal [facility] CBC AUTO DIFFon 09-18-2022 BASO # 0.0 103/ul Normal 0.0-0.1 [facility] Comment on above: Performed By: #### A NAD #### [facility] [address] [place] [address] Dr. Soo Donnelly Basophils/100 WBC (Bld) 0.4 % Normal 0.2-2.0 [facility] Comment on above: Performed By: #### A NAD #### [facility] [address] [place] [address] Dr. Soo Donnelly EO # 0.1 103/ul Normal 0.0-0.7 [facility] Comment on above: Performed By: #### A NAD #### [facility] [address] [place] [address] Dr. Soo Donnelly Eosinophils/100 WBC (Bld) 1.8 % Normal 0.9-7.0 [facility] Comment on above: Performed By: #### A NAD #### [facility] [address] [place] [address] Dr. Soo Donnelly Erythrocyte distribution width (RBC) [Ratio] 11.9 % Normal 11.0-15.0 [facility] Comment on above: Performed By: #### A NAD #### [facility] [address] [place] [address] Dr. Soo Donnelly Hematocrit (Bld) [Volume fraction] 43.9 % Normal 36.0-48.0 [facility] Comment on above: Performed By: #### A NAD #### [facility] [address] [place] [address] Dr. Soo Donnelly Hemoglobin (Bld) [Mass/Vol] 14.6 g/dL Normal 12.0-16.0 [facility] Comment on above: Performed By: #### A NAD #### [facility] [address] [place] [address] Dr. Soo Donnelly IG # 0.01 10e3/ul Normal 0.00-0.03 [facility] Comment on above: Performed By: #### A NAD #### [facility] [address] [place] [address] Dr. Soo Donnelly IG % 0.1 % Normal 0.0-0.5 [facility] Comment on above: Performed By: #### A NAD #### [facility] [address] [place] [address] Dr. Soo Donnelly LYMPH # 2.7 103/ul Normal 1.2-3.8 [facility] Comment on above: Performed By: #### A NAD #### [facility] [address] [place] [address] Dr. Soo Donnelly Lymphocytes/100 WBC (Bld) 39.9 % Normal 20.5-60.0 [facility] Comment on above: Performed By: #### A NAD #### [facility] [address] [place] [address] Dr. Soo Donnelly MANUAL DIFF REQ NO Normal [facility] Comment on above: Performed By: #### A NAD #### [facility] [address] [place] [address] Dr. Soo Donnelly MCH (RBC) [Entitic mass] 31.7 pg Normal 26.7-34.0 [facility] Comment on above: Performed By: #### A NAD #### [facility] [address] [place] [address] Dr. Soo Donnelly MCHC (RBC) [Mass/Vol] 33.3 g/dL Normal 29.9-35.2 [facility] Comment on above: Performed By: #### A NAD #### [facility] [address] [place] [address] Dr. Soo Donnelly MCV (RBC) [Entitic vol] 95.4 fL Normal 81.0-99.0 [facility] Comment on above: Performed By: #### A NAD #### [facility] [address] [place] [address] Dr. Soo Donnelly MONO # 0.4 103/ul Normal 0.3-0.8 [facility] Comment on above: Performed By: #### A NAD #### [facility] [address] [place] [address] Dr. Soo Donnelly Monocytes/100 WBC (Bld) 5.9 % Normal 1.7-12.0 [facility] Comment on above: Performed By: #### A NAD #### [facility] [address] [place] [address] Dr. Soo Donnelly NEUT # 3.5 103/ul Normal 1.4-6.5 [facility] Comment on above: Performed By: #### A NAD #### [facility] [address] [place] [address] Dr. Soo Donnelly Neutrophils/100 WBC (Bld) 51.9 % Normal 43.0-75.0 [facility] Comment on above: Performed By: #### A NAD #### [facility] [address] [place] [address] Dr. Soo Donnelly Platelet mean volume (Bld) [Entitic vol] 10.8 fL Normal 9.5-13.5 [facility] Comment on above: Performed By: #### A NAD #### [facility] [address] [place] [address] Dr. Soo Donnelly PLT 220 103/ul Normal 150-450 [facility] Comment on above: Performed By: #### A NAD #### [facility] [address] [place] [address] Dr. Soo Donnelly RBC 4.60 106/ul Normal 4.20-5.40 [facility] Comment on above: Performed By: #### A NAD #### [facility] [address] [place] [address] Dr. Soo Donnelly WBC 6.8 103/ul Normal 4.0-11.0 [facility] Comment on above: Performed By: #### A NAD #### [facility] [address] [place] [address] Dr. Soo Donnelly ER URINE PROFILEon 2 Bilirubin Ql (U) Negative Normal NEGATIVE [facility] Comment on above: Performed By: #### U LG, CRP #### [facility] [address] [place] [address] Dr. Soo Donnelly Clarity (U) CLEAR Normal CLEAR [facility] Comment on above: Performed By: #### U LG, CRP #### [facility] [address] [place] [address] Dr. Soo Donnelly Color (U) LT. YELLOW Normal YELLOW [facility] Comment on above: Performed By: #### U LG, CRP #### [facility] [address] [place] [address] Dr. Soo Donnelly ERUELSIE A micrscopic examination will be performed if indicated. Normal [facility] Comment on above: Performed By: #### U LG, CRP #### [facility] [address] [place] [address] Dr. Soo oDnnelly Glucose Ql (U) Negative Normal NEGATIVE [facility] Comment on above: Performed By: #### U LG, CRP #### [facility] [address] [place] [address] Dr. Soo Donnelly Hemoglobin Ql (U) Negative Normal NEGATIVE [facility] Comment on above: Performed By: #### U LG, CRP #### [facility] [address] [address] [address] Soo Donnelly Ketones Ql (U) Negative Normal NEGATIVE [facility] Comment on above: Performed By: #### U LG, CRP #### [facility] [address] [address] [address] Soo Donnelly LEUKOCYTES Negative Normal NEGATIVE [facility] Comment on above: Performed By: #### U LG, CRP #### [facility] [address] [address] [address] Soo Donnelly Nitrite Ql (U) Negative Normal NEGATIVE [facility] Comment on above: Performed By: #### U LG, CRP #### [facility] [address] [place] [address] Dr. Soo Donnelly pH (U) 6.0 [pH] Normal 5-9 [facility] Comment on above: Performed By: #### U LG, CRP #### [facility] [address] [place] [address] Dr. Soo Donnelly SPEC GRAVITY 1.015 Normal 1.005-<=1.02 5 [facility] Comment on above: Performed By: #### U LG, CRP #### [facility] [address] [place] [address] Dr. Soo Donnelly UA PROTEIN Negative Normal NEGATIVE/ TRACE [facility] Comment on above: Performed By: #### U LG, CRP #### [facility] [address] [address] [address] Soo Donnelly UR MICRO IND NOT INDICATED Normal [facility] Comment on above: Performed By: #### U LG, CRP #### [facility] [address] [place] [address] Dr. Soo Donnelly Urobilinogen Qn (U) 0.2 {Roma'U}/dL Normal 0.2 - 1. 0 [facility] Comment on above: Performed By: #### U LG, CRP #### [facility] [address] [address] [address] Soo Donnelly PROF CHEM 8 (BAS METB)on Anion gap [Moles/Vol] 10.2 mmol/L Normal Th [facility] Comment on above: Performed By: #### B MP #### [facility] [address] [place] [address] Dr. Soo Donnelly Calcium [Mass/Vol] 8.7 mg/dL Normal 8.5-10.1 [facility] Comment on above: Performed By: #### B MP #### [facility] [address] [place] [address] Dr. Soo Donnelly Chloride [Moles/Vol] 103 mmol/L Normal 98-107 [facility] Comment on above: Performed By: #### B MP #### [facility] [address] [place] [address] Dr. Soo Donnelly CO2 [Moles/Vol] 27.9 mmol/L Normal 21.0-32.0 [facility] Comment on above: Performed By: #### B MP #### [facility] [address] [place] [address] Dr. Soo Donnelly Creatinine [Mass/Vol] 0.80 mg/dL Normal 0.55-1.02 [facility] Comment on above: Performed By: #### B MP #### [facility] [address] [place] [address] Dr. Soo Donnelly EGFR-AF JAMAICAN >60 Normal >=60 [facility] Comment on above: Performed By: #### B MP #### [facility] [address] [place] [address] Dr. Soo Donnelly EGFR-NON AF J[place]ICAN >60 Normal >=60 [facility] Comment on above: Performed By: #### B MP #### [facility] [address] [place] [address] Dr. Soo Donnelly Glucose [Mass/Vol] 103 mg/dL Normal 74-106 [facility] Comment on above: Performed By: #### B MP #### [facility] [address] [place] [address] Dr. Soo Donnelly Potassium [Moles/Vol] 4.1 mmol/L Normal 3.5-5.1 [facility] Comment on above: Performed By: #### B MP #### [facility] [address] [address] [address] Soo Donnelly Sodium [Moles/Vol] 137 mmol/L Normal 136-145 [facility] Comment on above: Performed By: #### B MP #### [facility] [address] [address] [address] Soo Donnelly Urea nitrogen [Mass/Vol] 11.0 mg/dL Normal 7.0-18.0 [facility] Comment on above: Performed By: #### B MP #### [facility] [address] [address] [address] Soo Donnelly Urea nitrogen/Creatinine [Mass ratio] 13.8 mg/mg Normal [facility] Comment on above: Performed By: #### B MP #### [facility] [address] [address] [address] Soo Donnelly XR KUB 1 VIEWon [...] LUZ ELENA SAUCEDA Date: 2022-09-18 12:12 Normal [facility] MG MAMM SCREEN 3D DEAN CADon 09-12-2022 MG MAMM SCREEN 3D DEAN CAD Patient: HORACIO KEATING Exam Date: 09/12/2022 : 1975 Gender:F Ordering : DR DELGADO MURILLO . Admission #: [id number] Family : Order #: [id number] CLICK HERE TO VIEW EXAM RADIOLOGY REPORT [...] at age 77. LOCATION: [facility] BREAST COMPOSITION: Scattered areas fibroglandular [...] LUMP SHOULD BE BIOPSIED. Dictated by: Abigail Gonsalves MD on 09/13/2022 at 07:44 Approved by: Abigail Gonsalves MD on 09/13/2022 at 07:46 Normal [facility] INSULINon 07-20-2022 Insulin 25.5 uIU/mL Critically high 2.6-24.9 [facility] Comment on above: Performed By: #### U LG, CRP #### [facility] [address] [place] [address] Dr. Soo Donnelly T4 LABCORPon 07-20-2022 T4 [Mass/Vol] 7.4 ug/dL Normal 4.5-12.0 [facility] Comment on above: Performed By: #### A NAD #### [facility] [address] [place] [address] Dr. Soo Donnelly CBC W MANUAL DIFFon 07-19-20 22 ATYPICAL LYMPH # Normal [facility] Comment on above: Performed By: #### B UN, CREA #### [facility] [address] [place] [address] Dr. Soo Donnelly ATYPICAL LYMPH % Normal [facility] Comment on above: Performed By: #### B UN, CREA #### [facility] [address] [place] [address] Dr. Soo Donnelly BAND # Normal 0.0-0.3 [facility] Comment on above: Performed By: #### B UN, CREA #### [facility] [address] [place] [address] Dr. Soo Donnelly BAND % Normal 0-5 [facility] Comment on above: Performed By: #### B UN, CREA #### [facility] [address] [place] [address] Dr. Soo Donnelly BASOM # 0.00 103/ul Normal 0.00-0.10 [facility] Comment on above: Performed By: #### B UN, CREA #### [facility] [address] [place] [address] Dr. Soo Donnelly BASOM % 0.0 % Critically low 0.2-2.0 [facility] Comment on above: Performed By: #### B UN, CREA #### [facility] [address] [place] [address] Dr. Soo Donnelly BLAST # Normal [facility] Comment on above: Performed By: #### B UN, CREA #### [facility] [address] [place] [address] Dr. Soo Donnelly BLAST % Normal [facility] Comment on above: Performed By: #### B UN, CREA #### [facility] [address] [place] [address] Dr. Soo Donnelly CORRECTED WBC Normal 4.0-11.0 [facility] Comment on above: Performed By: #### B UN, CREA #### [facility] [address] [place] [address] Dr. Soo Donnelly EOS # 0.31 103/ul Normal 0.00-0.70 [facility] Comment on above: Performed By: #### B UN, CREA #### [facility] [address] [place] [address] Dr. Soo Donnelly EOS% 2.0 % Normal 0.9-7.0 [facility] Comment on above: Performed By: #### B UN, CREA #### [facility] [address] [place] [address] Dr. Soo Donnelly HCT 41.6 % Normal 36.0-48.0 [facility] Comment on above: Performed By: #### B UN, CREA #### [facility] [address] [address] [address] Soo Donnelly HGB 13.8 g/dl Normal 12.0-16.0 [facility] Comment on above: Performed By: #### B UN, CREA #### [facility] [address] [address] [address] Soo Donnelly LYMPHM # 5.27 103/ul Critically high 1.20-3.80 [facility] Comment on above: Performed By: #### B UN, CREA #### [facility] [address] [address] [address] Soo Donnelly LYMPHM% 34.0 % Normal 20.5-60.0 [facility] Comment on above: Performed By: #### B UN, CREA #### [facility] [address] [place] [address] Dr. Soo Donnelly MCH 31.5 pg Normal 26.7-34.0 [facility] Comment on above: Performed By: #### B UN, CREA #### [facility] [address] [address] [address] Soo Donnelly MCHC 33.2 g/dl Normal 29.9-35.2 [facility] Comment on above: Performed By: #### B UN, CREA #### [facility] [address] [address] [address] Soo Donnelly MCV 95.0 fL Normal 81.0-99.0 [facility] Comment on above: Performed By: #### B UN, CREA #### [facility] [address] [address] [address] Soo Donnelly METAMYELOCYTE # Normal [facility] Comment on above: Performed By: #### B UN, CREA #### [facility] [address] [address] [address] Soo Donnelly METAMYELOCYTE % Normal [facility] Comment on above: Performed By: #### B UN, CREA #### [facility] [address] [place] [address] Dr. Soo Donnelly MONOM# 0.93 103/ul Critically high 0.30-0.80 [facility] Comment on above: Performed By: #### B UN, CREA #### [facility] [address] [place] [address] Dr. Soo Donnelly MONOM% 6.0 % Normal 1.7-12.0 [facility] Comment on above: Performed By: #### B UN, CREA #### [facility] [address] [place] [address] Dr. Soo Donnelly MPV 10.1 fL Normal 9.5-13.5 [facility] Comment on above: Performed By: #### B UN, CREA #### [facility] [address] [place] [address] Dr. Soo Donnelly MYELOCYTE # Normal [facility] Comment on above: Performed By: #### B UN, CREA #### [facility] [address] [place] [address] Dr. Soo Donnelly MYELOCYTE % Normal [facility] Comment on above: Performed By: #### B UN, CREA #### [facility] [address] [place] [address] Dr. Soo Donnelly NRBC Normal [facility] Comment on above: Performed By: #### B UN, CREA #### [facility] [address] [place] [address] Dr. Soo Donnelly PLT 260 103/ul Normal 150-450 [facility] Comment on above: Performed By: #### B UN, CREA #### [facility] [address] [place] [address] Dr. Soo Donnelly RBC 4.38 106/ul Normal 4.20-5.40 [facility] Comment on above: Performed By: #### B UN, CREA #### [facility] [address] [place] [address] Dr. Soo Donnelly RDW 12.5 % Normal 11.0-15.0 [facility] Comment on above: Performed By: #### B UN, CREA #### [facility] [address] [address] [address] Soo Donnelly SEG # 8.99 103/ul Critically high 1.40-6.50 [facility] Comment on above: Performed By: #### B UN, CREA #### [facility] [address] [address] [address] Soo Donnelly SEG % 58.0 % Normal 43.0-75.0 [facility] Comment on above: Performed By: #### B UN, CREA #### [facility] [address] [address] [address] Soo Donnelly WBC 15.5 103/ul Critically high 4.0-11.0 [facility] Comment on above: Performed By: #### B UN, CREA #### [facility] [address] [place] [address] Dr. Soo Donnelly FREE T3on 07-19-2022 FREE T3 2.62 pg/mlL Normal 2.18-3.98 [facility] Comment on above: Performed By: #### U LG, CRP #### [facility] [address] [address] [address] Soo Donnelly GLYCOHEMOGLOBIN A1Con 2021 ADA RECOMMENDATION SEE BELOW Normal [facility] Comment on above: Result Comment: ADA RECOMMENDED LIMIT 4.0 - 6.0 ADA THERAPEUTIC TARGET < 7.0 ACTION SUGGESTED > 7.0 Performed By: #### U LG, CRP #### [facility] [address] [address] [address] Soo Donnelly Glucose [Mass/Vol] 137 mg/dL Normal [facility] Comment on above: Performed By: #### U LG, CRP #### [facility] [address] [address] [address] Soo Donnelly HbA1c (Bld) [Mass fraction] 6.4 % Critically high 4.5-6.2 [facility] Comment on above: Performed By: #### U LG, CRP #### [facility] [address] [address] [address] Soo Donnelly LIPID PROFILEon 07-19-2022 CHOL-HDL RATIO NORM SEE BELOW Normal [facility] Comment on above: Result Comment: 3.3 - 4.4 LOW RISK 4.4 - 7.1 AVERAGE RISK 7.1 - 11.0 MODERATE RISK >11.0 HIGH RISK Performed By: #### U LG, CRP #### [facility] [address] [address] [address] Soo Donnelly Cholesterol [Mass/Vol] 226 mg/dL Critically high <=200 [facility] Comment on above: Performed By: #### U LG, CRP #### [facility] [address] [address] [address] Soo Donnelly Cholesterol in HDL [Mass/Vol] 33 mg/dL Critically low 40-60 [facility] Comment on above: Performed By: #### U LG, CRP #### [facility] [address] [address] [address] Soo Donnelly Cholesterol in LDL [Mass/Vol] 135.2 mg/dL Normal [facility] Comment on above: Performed By: #### U LG, CRP #### [facility] [address] [address] [address] Soo Donnelly Cholesterol.total/Mirta sterol in HDL [Mass ratio] 6.8 {ratio} Normal [facility] Comment on above: Performed By: #### U LG, CRP #### [facility] [address] [address] [address] Soo Donnelly HDL NORMAL > or = 60 mg/dl - LO W CARDIOVASCULAR RISK <40 mg/dl - HIGH CARDIOVASCULAR RISK Normal [facility] Comment on above: Performed By: #### U LG, CRP #### [facility] [address] [address] [address] Soo Donnelly LDL CALC NORMAL SEE BELOW Normal [facility] Comment on above: Result Comment: <100 mg/dl OPTIMAL 100 - 129 mg/dl NEAR OR ABOVE OPTIMAL 130 - 159 mg/dl BORDERLINE HIGH 160 - 189 mg/dl HIGH >190 mg/dl VERY HIGH Performed By: #### U LG, CRP #### [facility] [address] [address] [address] Soo Donnelly Triglyceride [Mass/Vol] 289 mg/dL Critically high <=150 [facility] Comment on above: Performed By: #### U LG, CRP #### [facility] [address] [place] [address] Dr. Soo Donnelly VLDL CALC 57.8 mg/dL Normal [facility] Comment on above: Performed By: #### U LG, CRP #### [facility] [address] [place] [address] Dr. Soo Donnelly PROF 14(COMP METB)on 022 Albumin [Mass/Vol] 3.2 g/dL Critically low 3.4-5.0 Th e [facility] Comment on above: Performed By: #### U LG, CRP #### [facility] [address] [place] [address] Dr. Soo Donnelly Albumin/Globulin [Mass ratio] 1.1 {ratio} Normal [facility] Comment on above: Performed By: #### U LG, CRP #### [facility] [address] [place] [address] Dr. Soo Donnelly ALP [Catalytic activity/Vol] 41 U/L Critically low 46-116 [facility] Comment on above: Performed By: #### U LG, CRP #### [facility] [address] [place] [address] Dr. Soo Donnelly ALT [Catalytic activity/Vol] 46 U/L Normal 14-59 [facility] Comment on above: Performed By: #### U LG, CRP #### [facility] [address] [place] [address] Dr. Soo Donnelly Anion gap [Moles/Vol] 9.3 mmol/L Normal [facility] Comment on above: Performed By: #### U LG, CRP #### [facility] [address] [place] [address] Dr. Soo Donnelly AST [Catalytic activity/Vol] 18 U/L Normal 15-37 [facility] Comment on above: Performed By: #### U LG, CRP #### [facility] [address] [place] [address] Dr. Soo Donnelly Bilirubin [Mass/Vol] 0.7 mg/dL Normal 0.2-1.0 [facility] Comment on above: Performed By: #### U LG, CRP #### [facility] [address] [place] [address] Dr. Soo Donnelly Calcium [Mass/Vol] 8.1 mg/dL Critically low 8.5-10.1 Th e [facility] Comment on above: Performed By: #### U LG, CRP #### [facility] [address] [address] [address] Soo Donnelly Chloride [Moles/Vol] 101 mmol/L Normal 98-107 [facility] Comment on above: Performed By: #### U LG, CRP #### [facility] [address] [place] [address] Dr. Soo Donnelly CO2 [Moles/Vol] 31.1 mmol/L Normal 21.0-32.0 [facility] Comment on above: Performed By: #### U LG, CRP #### [facility] [address] [place] [address] Dr. Soo Donnelly Creatinine [Mass/Vol] 0.77 mg/dL Normal 0.55-1.02 [facility] Comment on above: Performed By: #### U GL, CRP #### [facility] [address] [place] [address] Dr. Soo Donnelly EGFR-AF JAMAICAN >60 Normal >=60 [facility] Comment on above: Performed By: #### U LG, CRP #### [facility] [address] [place] [address] Dr. Soo Donnelly EGFR-NON AF JAMAICAN >60 Normal >=60 [facility] Comment on above: Performed By: #### U LG, CRP #### [facility] [address] [place] [address] Dr. Soo Donnelly Globulin (S) [Mass/Vol] 3.0 g/dL Normal T [facility] Comment on above: Performed By: #### U LG, CRP #### [facility] [address] [place] [address] Dr. Soo Donnelly Glucose [Mass/Vol] 104 mg/dL Normal 74-106 [facility] Comment on above: Performed By: #### U LG, CRP #### [facility] [address] [place] [address] Dr. Soo Donnelly Potassium [Moles/Vol] 3.4 mmol/L Critically low 3.5-5.1 [facility] Comment on above: Performed By: #### U LG, CRP #### [facility] [address] [place] [address] Dr. Soo Donnelly Protein [Mass/Vol] 6.2 g/dL Critically low 6.4-8.2 [facility] Comment on above: Performed By: #### U LG, CRP #### [facility] [address] [place] [address] Dr. Soo Donnelly Sodium [Moles/Vol] 138 mmol/L Normal 136-145 [facility] Comment on above: Performed By: #### U LG, CRP #### [facility] [address] [place] [address] Dr. Soo Donnelly Urea nitrogen [Mass/Vol] 16.0 mg/dL Normal 7.0-18.0 [facility] Comment on above: Performed By: #### U LG, CRP #### [facility] [address] [place] [address] Dr. Soo Donnelly Urea nitrogen/Creatinine [Mass ratio] 20.8 mg/mg Normal [facility] Comment on above: Performed By: #### U LG, CRP #### [facility] [address] [place] [address] Dr. Soo Donnelly TSHon 07-19-2022 TSH 3.262 uIU/mL Normal 0.358-3.740 [facility] Comment on above: Performed By: #### U LG, CRP #### [facility] [address] [place] [address] Dr. Soo Donnelly CBC AUTO DIFFon 05-18-2022 BASO # 0.0 103/ul Normal 0.0-0.1 [facility] Comment on above: Performed By: #### U LG, CRP #### [facility] [address] [address] [address] Soo Donnelly Basophils/100 WBC (Bld) 0.2 % Normal 0.2-2.0 [facility] Comment on above: Performed By: #### U LG, CRP #### [facility] [address] [place] [address] Dr. Soo Donnelly EO # 0.0 103/ul Normal 0.0-0.7 [facility] Comment on above: Performed By: #### U LG, CRP #### [facility] [address] [place] [address] Dr. Soo Donnelly Eosinophils/100 WBC (Bld) 0.2 % Critically low 0.9-7.0 [facility] Comment on above: Performed By: #### U LG, CRP #### [facility] [address] [place] [address] Dr. Soo Donnelly Erythrocyte distribution width (RBC) [Ratio] 12.8 % Normal 11.0-15.0 [facility] Comment on above: Performed By: #### U LG, CRP #### [facility] [address] [place] [address] Dr. Soo Donnelly Hematocrit (Bld) [Volume fraction] 35.7 % Critically low 36.0-48.0 [facility] Comment on above: Performed By: #### U LG, CRP #### [facility] [address] [place] [address] Dr. Soo Donnelly Hemoglobin (Bld) [Mass/Vol] 11.5 g/dL Critically low 12.0-16.0 [facility] Comment on above: Performed By: #### U LG, CRP #### [facility] [address] [place] [address] Dr. Soo Donnelly IG # 0.07 10e3/ul Critically high 0.00-0.03 [facility] Comment on above: Performed By: #### U LG, CRP #### [facility] [address] [place] [address] Dr. Soo Donnelly IG % 0.5 % Normal 0.0-0.5 [facility] Comment on above: Performed By: #### U LG, CRP #### [facility] [address] [address] [address] Soo Donnelly LYMPH # 4.1 103/ul Critically high 1.2-3.8 [facility] Comment on above: Performed By: #### U LG, CRP #### [facility] [address] [address] [address] Soo Donnelly Lymphocytes/100 WBC (Bld) 28.3 % Normal 20.5-60.0 [facility] Comment on above: Performed By: #### U LG, CRP #### [facility] [address] [address] [address] Soo Donnelly MANUAL DIFF REQ NO Normal [facility] Comment on above: Performed By: #### U LG, CRP #### [facility] [address] [address] [address] Soo Donnelly MCH (RBC) [Entitic mass] 31.7 pg Normal 26.7-34.0 [facility] Comment on above: Performed By: #### U LG, CRP #### [facility] [address] [address] [address] Soo Donnelly MCHC (RBC) [Mass/Vol] 32.2 g/dL Normal 29.9-35.2 [facility] Comment on above: Performed By: #### U LG, CRP #### [facility] [address] [address] [address] Soo Donnelly MCV (RBC) [Entitic vol] 98.3 fL Normal 81.0-99.0 [facility] Comment on above: Performed By: #### U LG, CRP #### [facility] [address] [address] [address] Soo Donnelly MONO # 0.8 103/ul Normal 0.3-0.8 [facility] Comment on above: Performed By: #### U LG, CRP #### [facility] [address] [address] [address] Soo Donnelly Monocytes/100 WBC (Bld) 5.6 % Normal 1.7-12.0 [facility] Comment on above: Performed By: #### U LG, CRP #### [facility] [address] [address] [address] Soo Donnelly NEUT # 9.4 103/ul Critically high 1.4-6.5 [facility] Comment on above: Performed By: #### U LG, CRP #### [facility] [address] [address] [address] Soo Donnelly Neutrophils/100 WBC (Bld) 65.2 % Normal 43.0-75.0 [facility] Comment on above: Performed By: #### U LG, CRP #### [facility] [address] [address] [address] Soo Donnelly Platelet mean volume (Bld) [Entitic vol] 10.8 fL Normal 9.5-13.5 [facility] Comment on above: Performed By: #### U LG, CRP #### [facility] [address] [address] [address] Soo Donnelly PLT 191 103/ul Normal 150-450 [facility] Comment on above: Performed By: #### U LG, CRP #### [facility] [address] [address] [address] Soo Donnelly RBC 3.63 106/ul Critically low 4.20-5.40 [facility] Comment on above: Performed By: #### U LG, CRP #### [facility] [address] [address] [address] Soo Donnelly WBC 14.4 103/ul Critically high 4.0-11.0 [facility] Comment on above: Performed By: #### U LG, CRP #### [facility] [address] [address] [address] Soo Donnelly BUNon 05-17-2022 Urea nitrogen [Mass/Vol] 8.0 mg/dL Normal 7.0-18.0 [facility] Comment on above: Performed By: #### B UN, CREA #### [facility] [address] [address] [address] Soo Donnelly CBC AUTO DIFFon 05-17-2022 BASO # 0.0 103/ul Normal 0.0-0.1 [facility] Comment on above: Performed By: #### U LG, CRP #### [facility] [address] [place] [address] Dr. Soo Donnelly Basophils/100 WBC (Bld) 0.1 % Critically low 0.2-2.0 [facility] Comment on above: Performed By: #### U LG, CRP #### [facility] [address] [address] [address] Soo Donnelly EO # 0.0 103/ul Normal 0.0-0.7 [facility] Comment on above: Performed By: #### U LG, CRP #### [facility] [address] [place] [address] Dr. Soo Donnelly Eosinophils/100 WBC (Bld) 0.0 % Critically low 0.9-7.0 [facility] Comment on above: Performed By: #### U LG, CRP #### [facility] [address] [place] [address] Dr. Soo Donnelly Erythrocyte distribution width (RBC) [Ratio] 12.5 % Normal 11.0-15.0 [facility] Comment on above: Performed By: #### U LG, CRP #### [facility] [address] [place] [address] Dr. Soo Donnelly Hematocrit (Bld) [Volume fraction] 38.5 % Normal 36.0-48.0 [facility] Comment on above: Performed By: #### U LG, CRP #### [facility] [address] [place] [address] Dr. Soo Donnelly Hemoglobin (Bld) [Mass/Vol] 13.0 g/dL Normal 12.0-16.0 [facility] Comment on above: Performed By: #### U LG, CRP #### [facility] [address] [place] [address] Dr. Soo Donnelly IG # 0.16 10e3/ul Critically high 0.00-0.03 [facility] Comment on above: Performed By: #### U LG, CRP #### [facility] [address] [address] [address] Soo Donnelly IG % 0.7 % Critically high 0.0-0.5 [facility] Comment on above: Performed By: #### U LG, CRP #### [facility] [address] [address] [address] Soo Donnelly LYMPH # 3.0 103/ul Normal 1.2-3.8 [facility] Comment on above: Performed By: #### U LG, CRP #### [facility] [address] [address] [address] Soo Donnelly Lymphocytes/100 WBC (Bld) 12.2 % Critically low 20.5-60.0 [facility] Comment on above: Performed By: #### U LG, CRP #### [facility] [address] [address] [address] Soo Donnelly MANUAL DIFF REQ NO Normal [facility] Comment on above: Performed By: #### U LG, CRP #### [facility] [address] [address] [address] Soo Donnelly MCH (RBC) [Entitic mass] 32.4 pg Normal 26.7-34.0 [facility] Comment on above: Performed By: #### U LG, CRP #### [facility] [address] [address] [address] Soo Donnelly MCHC (RBC) [Mass/Vol] 33.8 g/dL Normal 29.9-35.2 [facility] Comment on above: Performed By: #### U LG, CRP #### [facility] [address] [address] [address] Soo Donnelly MCV (RBC) [Entitic vol] 96.0 fL Normal 81.0-99.0 [facility] Comment on above: Performed By: #### U LG, CRP #### [facility] [address] [address] [address] Soo Donnelly MONO # 1.3 103/ul Critically high 0.3-0.8 [facility] Comment on above: Performed By: #### U LG, CRP #### [facility] [address] [address] [address] Soo Donnelly Monocytes/100 WBC (Bld) 5.4 % Normal 1.7-12.0 [facility] Comment on above: Performed By: #### U LG, CRP #### [facility] [address] [address] [address] Soo Donnelly NEUT # 19.8 103/ul Critically high 1.4-6.5 [facility] Comment on above: Performed By: #### U LG, CRP #### [facility] [address] [address] [address] Soo Donnelly Neutrophils/100 WBC (Bld) 81.6 % Critically high 43.0-75.0 [facility] Comment on above: Performed By: #### U LG, CRP #### [facility] [address] [place] [address] Dr. Soo Donnelly Platelet mean volume (Bld) [Entitic vol] 10.5 fL Normal 9.5-13.5 [facility] Comment on above: Performed By: #### U LG, CRP #### [facility] [address] [address] [address] Soo Donnelly PLT 253 103/ul Normal 150-450 [facility] Comment on above: Performed By: #### U LG, CRP #### [facility] [address] [place] [address] Dr. Soo Donnelly RBC 4.01 106/ul Critically low 4.20-5.40 [facility] Comment on above: Performed By: #### U LG, CRP #### [facility] [address] [address] [address] Soo Donnelly WBC 24.3 103/ul Critically high 4.0-11.0 [facility] Comment on above: Performed By: #### U LG, CRP #### [facility] [address] [address] [address] Soo Donnelly BASO # 0.0 103/ul Normal 0.0-0.1 [facility] Comment on above: Performed By: #### U LG, CRP #### [facility] [address] [address] [address] Soo Donnelly Basophils/100 WBC (Bld) 0.1 % Critically low 0.2-2.0 [facility] Comment on above: Performed By: #### U LG, CRP #### [facility] [address] [address] [address] Soo Donnelly EO # 0.0 103/ul Normal 0.0-0.7 [facility] Comment on above: Performed By: #### U LG, CRP #### [facility] [address] [address] [address] Soo Donnlely Eosinophils/100 WBC (Bld) 0.0 % Critically low 0.9-7.0 [facility] Comment on above: Performed By: #### U LG, CRP #### [facility] [address] [place] [address] Dr. Soo Donnelly Erythrocyte distribution width (RBC) [Ratio] 12.3 % Normal 11.0-15.0 [facility] Comment on above: Performed By: #### U LG, CRP #### [facility] [address] [address] [address] Soo Donnelly Hematocrit (Bld) [Volume fraction] 41.2 % Normal 36.0-48.0 [facility] Comment on above: Performed By: #### U LG, CRP #### [facility] [address] [place] [address] Dr. Soo Donnelly Hemoglobin (Bld) [Mass/Vol] 13.5 g/dL Normal 12.0-16.0 [facility] Comment on above: Performed By: #### U LG, CRP #### [facility] [address] [address] [address] Soo Donnelly IG # 0.11 10e3/ul Critically high 0.00-0.03 [facility] Comment on above: Performed By: #### U LG, CRP #### [facility] [address] [place] [address] Dr. Soo Donnelly IG % 0.5 % Normal 0.0-0.5 [facility] Comment on above: Performed By: #### U LG, CRP #### [facility] [address] [address] [address] Soo Donnelly LYMPH # 1.6 103/ul Normal 1.2-3.8 [facility] Comment on above: Performed By: #### U LG, CRP #### [facility] [address] [address] [address] Soo Donnelly Lymphocytes/100 WBC (Bld) 7.8 % Critically low 20.5-60.0 [facility] Comment on above: Performed By: #### U LG, CRP #### [facility] [address] [address] [address] Soo Donnelly MANUAL DIFF REQ NO Normal [facility] Comment on above: Performed By: #### U LG, CRP #### [facility] [address] [address] [address] Soo Donnelly MCH (RBC) [Entitic mass] 31.8 pg Normal 26.7-34.0 [facility] Comment on above: Performed By: #### U LG, CRP #### [facility] [address] [address] [address] Soo Donnelly MCHC (RBC) [Mass/Vol] 32.8 g/dL Normal 29.9-35.2 [facility] Comment on above: Performed By: #### U LG, CRP #### [facility] [address] [address] [address] Soo Donnelly MCV (RBC) [Entitic vol] 96.9 fL Normal 81.0-99.0 [facility] Comment on above: Performed By: #### U LG, CRP #### [facility] [address] [address] [address] Soo Donnelly MONO # 0.4 103/ul Normal 0.3-0.8 [facility] Comment on above: Performed By: #### U LG, CRP #### [facility] [address] [address] [address] Soo Donnelly Monocytes/100 WBC (Bld) 2.0 % Normal 1.7-12.0 [facility] Comment on above: Performed By: #### U LG, CRP #### [facility] [address] [address] [address] Soo Donnelly NEUT # 18.1 103/ul Critically high 1.4-6.5 [facility] Comment on above: Performed By: #### U LG, CRP #### [facility] [address] [address] [address] Soo Donnelly Neutrophils/100 WBC (Bld) 89.6 % Critically high 43.0-75.0 [facility] Comment on above: Performed By: #### U LG, CRP #### [facility] [address] [place] [address] Dr. Soo Donnelly Platelet mean volume (Bld) [Entitic vol] 11.0 fL Normal 9.5-13.5 [facility] Comment on above: Performed By: #### U LG, CRP #### [facility] [address] [place] [address] Dr. Soo Donnelly PLT 223 103/ul Normal 150-450 [facility] Comment on above: Performed By: #### U LG, CRP #### [facility] [address] [place] [address] Dr. Soo Donnelly RBC 4.25 106/ul Normal 4.20-5.40 [facility] Comment on above: Performed By: #### U LG, CRP #### [facility] [address] [place] [address] Dr. Soo Donnelly WBC 20.2 103/ul Critically high 4.0-11.0 [facility] Comment on above: Performed By: #### U LG, CRP #### [facility] [address] [place] [address] Dr. Soo Donnelly CREATININEon 05-17-2022 Creatinine [Mass/Vol] 0.97 mg/dL Normal 0.55-1.02 [facility] Comment on above: Performed By: #### B UN, CREA #### [facility] [address] [place] [address] Dr. Soo Donnelly EGFR-AF JAMAICAN >60 Normal >=60 [facility] Comment on above: Performed By: #### B UN, CREA #### [facility] [address] [place], [place] [address] Dr. Soo Donnelly EGFR-NON AF JAMAICAN >60 Normal >=60 [facility] Comment on above: Performed By: #### B UN, CREA #### [facility] [address] [place], [place] [address] Dr. Soo Donnelly CTA CHEST WO W [...] LUZ ELENA SAUCEDA Date: 2022-05-17 16:40 Normal [facility] XR CHEST 2 Von 05-17-2022 XR [...] Date: 2022-05-17 16:10 Normal [facility] CBC AUTO DIFFon 05-16-2022 BASO # 0.1 103/ul Normal 0.0-0.1 [facility] Comment on above: Performed By: #### B UN, CREA #### [facility] [address] [place] [address] Dr. Soo Donnelly Basophils/100 WBC (Bld) 0.5 % Normal 0.2-2.0 [facility] Comment on above: Performed By: #### B UN, CREA #### [facility] [address] [place] [address] Dr. Soo Donnelly EO # 0.1 103/ul Normal 0.0-0.7 [facility] Comment on above: Performed By: #### B UN, CREA #### [facility] [address] [place] [address] Dr. Soo Donnelly Eosinophils/100 WBC (Bld) 1.0 % Normal 0.9-7.0 [facility] Comment on above: Performed By: #### B UN, CREA #### [facility] [address] [place] [address] Dr. Soo Donnelly Erythrocyte distribution width (RBC) [Ratio] 12.2 % Normal 11.0-15.0 [facility] Comment on above: Performed By: #### B UN, CREA #### [facility] [address] [place] [address] Dr. Soo Donnelly Hematocrit (Bld) [Volume fraction] 41.2 % Normal 36.0-48.0 [facility] Comment on above: Performed By: #### B UN, CREA #### [facility] [address] [place] [address] Dr. Soo Donnelly Hemoglobin (Bld) [Mass/Vol] 13.9 g/dL Normal 12.0-16.0 [facility] Comment on above: Performed By: #### B UN, CREA #### [facility] [address] [address] [address] Soo Donnelly IG # 0.04 10e3/ul Critically high 0.00-0.03 [facility] Comment on above: Performed By: #### B UN, CREA #### [facility] [address] [address] [address] Soo Donnelly IG % 0.4 % Normal 0.0-0.5 [facility] Comment on above: Performed By: #### B UN, CREA #### [facility] [address] [place] [address] Dr. Soo Donnelly LYMPH # 3.5 103/ul Normal 1.2-3.8 [facility] Comment on above: Performed By: #### B UN, CREA #### [facility] [address] [place] [address] Dr. Soo Donnelly Lymphocytes/100 WBC (Bld) 35.3 % Normal 20.5-60.0 [facility] Comment on above: Performed By: #### B UN, CREA #### [facility] [address] [place] [address] Dr. Soo Donnelly MANUAL DIFF REQ NO Normal [facility] Comment on above: Performed By: #### B UN, CREA #### [facility] [address] [place] [address] Dr. Soo Donnelly MCH (RBC) [Entitic mass] 31.7 pg Normal 26.7-34.0 [facility] Comment on above: Performed By: #### B UN, CREA #### [facility] [address] [place] [address] Dr. Soo Donnelly MCHC (RBC) [Mass/Vol] 33.7 g/dL Normal 29.9-35.2 [facility] Comment on above: Performed By: #### B UN, CREA #### [facility] [address] [place] [address] Dr. Soo Donnelly MCV (RBC) [Entitic vol] 94.1 fL Normal 81.0-99.0 [facility] Comment on above: Performed By: #### B UN, CREA #### [facility] [address] [place] [address] Dr. Soo Donnelly MONO # 0.5 103/ul Normal 0.3-0.8 [facility] Comment on above: Performed By: #### B UN, CREA #### [facility] [address] [place] [address] Dr. Soo Donnelly Monocytes/100 WBC (Bld) 5.4 % Normal 1.7-12.0 [facility] Comment on above: Performed By: #### B UN, CREA #### [facility] [address] [place] [address] Dr. Soo Donnelly NEUT # 5.6 103/ul Normal 1.4-6.5 [facility] Comment on above: Performed By: #### B UN, CREA #### [facility] [address] [place] [address] Dr. Soo Donnelly Neutrophils/100 WBC (Bld) 57.4 % Normal 43.0-75.0 [facility] Comment on above: Performed By: #### B UN, CREA #### [facility] [address] [place] [address] Dr. Soo Donnelly Platelet mean volume (Bld) [Entitic vol] 10.3 fL Normal 9.5-13.5 [facility] Comment on above: Performed By: #### B UN, CREA #### [facility] [address] [place] [address] Dr. oSo Donnelly PLT 235 103/ul Normal 150-450 [facility] Comment on above: Performed By: #### B UN, CREA #### [facility] [address] [place] [address] Dr. Soo Donnelly RBC 4.38 106/ul Normal 4.20-5.40 [facility] Comment on above: Performed By: #### B UN, CREA #### [facility] [address] [place] [address] Dr. Soo Donnelly WBC 9.8 103/ul Normal 4.0-11.0 [facility] Comment on above: Performed By: #### B UN, CREA #### [facility] [address] [address] [address] Soo Donnelly PREG QUANT HCGon 05-16-2022 HCG QUANT <1 Normal [facility] Comment on above: Performed By: #### U LG, CRP #### [facility] [address] [address] [address] Soo Donnelly HCG RANGE SEE BELOW Normal [facility] Comment on above: Result Comment: 5-50 0-1 WEEK 40-300 1-2 WEEKS 100-1,000 2-3 WEEKS 500-6,000 3-4 WEEKS 5,000-200,000 1-2 MONTHS 10,000-100,000 2-3 MONTHS 3,000-50,000 2ND TRIMESTER 1,000-50,000 3RD TRIMESTER Performed By: #### U LG, CRP #### [facility] [address] [place] [address] Dr. Soo Donnelly Covid-19 PCR (CVDTBH)on 05-01 SARS-CoV-2 (COVID-19) RNA NOLA+probe Ql (Unsp spec) Not detected Normal NOT DETECTED [facility] Comment on above: Result Comment: This test is not yet approved or cleared by the [place] FDA. When there are no FDA-approved or cleared tests available, and other criteria are met, FDA can make tests available under an emergency access mechanism called an Emergency Use Authorization (EUA). The EUA for this test is supported by the [place] of Health and Human Service's (HHS's) declaration [...] By: #### C VDTBH #### [facility] [address] [place] [address] Dr. Soo Donnelly TYPE AND SCREENon 05-13-2022 TYPE AND SCREEN Negative Normal [facility] Comment on above: Performed By: #### B KYMBERLY MARSHALL #### [facility] [address] [place] [address] Dr. Soo Donnelly PAP ACOG PANEL 2: 30 to 65on 05-07-2022 . . Normal [facility] Comment on above: Result Comment: Perf ormed at: WB Performed By: #### [id number] #### [facility] [address] [place] [address] Dr. Soo Donnelly Age Gdln ACOG Testing 30-65 [facility] Comment on above: Performed By: #### [id number] #### [facility] [address] [place] [address] Dr. Soo Donnelly DIAGNOSIS: Comment Normal [facility] Comment on above: Result Comment: NEGA TIVE FOR INTRAEPITHELIAL LESION OR MALIGNANCY. Performed at: WB Performed By: #### [id number] #### [facility] [address] [place] [address] Dr. Soo Donnelly HPV Aptima Negative Normal Negative [facility] Comment on above: Result Comment: This nucleic acid amplification test detects fourteen high-risk HPV types (16,18,31,33,35,39,45,51,52,56,58,59,66,68) without differentiation. Performed at: =G Performed By: #### [id number] #### [facility] [address] [place] [address] Dr. Soo Donnelly Methodology: Comment Normal [facility] Comment on above: Result Comment: This liquid based ThinPrep(R) pap test was screened with the use of an image guided system. Performed at: WB Performed By: #### [id number] #### [facility] [address] [place] [address] Dr. Soo Donnelly Note: Comment Normal [facility] Comment on above: Result Comment: The Pap smear is a screening test designed to aid in the detection of premalignant and malignant conditions of the uterine cervix. It is not a diagnostic procedure and should not be used as the sole means of detecting cervical cancer. Both false-positive and false-negative reports do occur. . Performed at: WB Performed By: #### [id number] #### [facility] [address] [place] [address] Dr. Soo Donnelly Performed by: Comment Normal [facility] Comment on above: Result Comment: Angel Rod, Manual Machinist (ASCP) Performed at: WB Performed By: #### [id number] #### [facility] [address] [place] [address] Dr. Soo Donnelly Specimen adequacy: Comment Normal [facility] Comment on above: Result Comment: Sati sfactory for evaluation. Endocervical and/or squamous metaplastic cells (endocervical component) are present. Performed at: WB Performed By: #### [id number] #### [facility] [address] [place] [address] Dr. Soo Donnelly ROSS by IFAon 02-21-2022 Antinuclear Antibodies, IFA Negative [facility] Comment on above: Result Comment: Nega tive <1:80 Borderline 1:80 Positive >1:80 ICAP nomenclature: AC-0 For more information about Hep-2 cell patterns use ANApatterns.org, the official website for the International Consensus on Antinuclear Antibody (ROSS) Patterns (ICAP). Performed By: #### U LG, CRP #### [facility] [address] [place] [address] Dr. Soo Donnelly ROSS DIRECTon 02-20-2022 ROSS Direct Negative Normal Negative [facility] Comment on above: Performed By: #### A NAD #### [facility] [address] [place] [address] Dr. Soo Donnelly ANTISTREPTOLYSIN O AB (ASO)o n 02-20-2022 Antistreptolysin O Ab 115.3 IU/mL Normal 0.0-200.[address] [facility] Comment on above: Performed By: #### B UN, CREA #### [facility] [address] [place] [address] Dr. Soo Donnelly C3 and C4 COMPLEMENTon 03-23 -2022 Complement C3, Serum 137 mg/dL Normal 82-167 [facility] Comment on above: Performed By: #### U LG, CRP #### [facility] [address] [place] [address] Dr. Soo Donnelly Complement C4, Serum 23 mg/dL Normal 12-38 [facility] Comment on above: Performed By: #### U LG, CRP #### [facility] [address] [address] [address] Soo Donnelly SLE PROFILE Aon 02-20-2022 Anti-DNA (DS) Ab Qn <1 Normal 0-9 [facility] Comment on above: Result Comment: Nega tive <5 Equivocal 5 - 9 Positive >9 Performed By: #### S YARI #### [facility] [address] [place] [address] Dr. Soo Donnelly Antichromatin Antibodies <0.2 Normal 0.0-0.9 [facility] Comment on above: Performed By: #### S YARI #### [facility] [address] [place] [address] Dr. Soo Donnelly RA Latex Turbid. <10.0 Normal <14.0 [facility] Comment on above: Performed By: #### S YARI #### [facility] [address] [place] [address] Dr. Soo Donnelly MANUAL WRITER Antibodies <0.2 Normal 0.0-0.9 [facility] Comment on above: Performed By: #### S YARI #### [facility] [address] [place] [address] Dr. Soo Donnelly Sjogren's Anti-SS-A <0.2 Normal 0.0-0.9 [facility] Comment on above: Performed By: #### S YARI #### [facility] [address] [place] [address] Dr. Soo Donnelly Sjogrdaniela's Anti-SS-B <0.2 Normal 0.0-0.9 [facility] Comment on above: Performed By: #### S YARI #### [facility] [address] [place] [address] Dr. Soo Donnelly Spann Antibodies <0.2 Normal 0.0-0.9 [facility] Comment on above: Performed By: #### S YARI #### [facility] [address] [address] [address] Soo Donnelly CRPon 02-19-2022 CRP [Mass/Vol] mg/L Normal <=1.0 [facility] Comment on above: Performed By: #### U LG, CRP #### [facility] [address] [address] [address] Soo Donnelly URIC ACID SERUMon 02-19-2022 Urate [Mass/Vol] 4.7 mg/dL Normal 2.5-6.2 [facility] Comment on above: Performed By: #### U LG, CRP #### [facility] [address] [address] [address] Soo Donnelly XR CSPINE MIN 4 [...] significant at C5-C6 Electronically authenticated by: ABIGAIL GONSALVES Date: 2022-02-19 16:33 Normal [facility] XR HAND DEAN MIN 3Von [...] CONCLUSION: Mild osteoarthritis Electronically authenticated by: ABIGAIL GONSALVES Date: 2022-02-19 16:28 Normal [facility] ASYMPTOMATIC COVID-19 ANTIGE Non 12-04-2021 [...] By: #### C VDAGA #### [facility] [address] [place] [address] Dr. Soo Donnelly SARS-CoV-2 (COVID-19) RNA NOLA+probe Ql (Unsp spec) Negative Normal NEGATIVE [facility] Comment on above: Result Comment: Nega tive results are presumptive. They do not preclude infection and should not be used as the sole basis for treatment decisions. Additional confirmatory testing by a molecular method should be considered. Performed By: #### C VDAGA #### [facility] [address] [place] [address] Dr. Soo Donnelly Covid-19 PCR (CVDTBH)on SARS-CoV-2 (COVID-19) RNA NOLA+probe Ql (Unsp spec) Not detected Normal NOT DETECTED [facility] Comment on above: Result Comment: This test is not yet approved or cleared by the [place] FDA. When there are no FDA-approved or cleared tests available, and other criteria are met, FDA can make tests available under an emergency access mechanism called an Emergency Use Authorization (EUA). The EUA for this test is supported by the [employer] Filler of Health and Human Service's (HHS's) declaration [...] #### U LG, CRP #### [facility] [address] [place] [address] Dr. Soo Donnelly Vital Signs Date Time Vital Sign Value Performing Clinician Facility 11-01-2024 14:30-0500 Blood Pressure Location [facility] 11-01-2024 14:30-0500 Diastolic blood pressure 74 mm[Hg] [facility] 11-01-2024 14:30-0500 Heart rate 93 /min [facility] 11-01-2024 14:30-0500 Respiratory rate 16 /min [facility] 11-01-2024 14:30-0500 Systolic blood pressure 112 mm[Hg] [facility] 10-20-2024 11:08-0500 Body height 167.6 cm [facility] 10-20-2024 11:08-0500 Body mass index (BMI) [Ratio] 28.41 kg/m2 [facility] 1 [facility] 10-20-2024 11:08-0500 Body weight 79.83 kg Pmh 1 [facility] 10-13-2024 14:20-0500 Body height 170.2 cm Becca Schwarz ASSISTANT SPA MANAGER-VP CONSTRUCTION Work Phone: [facility] [employer] [facility] 10-13-2024 14:20-0500 Body mass index (BMI) [Ratio] 28.51 kg/m2 Becca Schwarz ASSISTANT SPA MANAGER-VP CONSTRUCTION Work Phone: [facility] [employer] [facility] 10-13-2024 14:20-0500 Body weight 82.56 kg Becca Schwarz ASSISTANT SPA MANAGER-VP CONSTRUCTION Work Phone: [facility] 11-01-2022 15:19-0500 Blood Pressure Location Nicola NILL [facility] 11-01-2022 15:19-0500 Diastolic blood pressure 80 mm[Hg] Nicola NILL [facility] 11-01-2022 15:19-0500 Heart rate 72 /min Nicola NILL [facility] 11-01-2022 15:19-0500 Respiratory rate 16 /min Nicola NILL [facility] 11-01-2022 15:19-0500 Systolic blood pressure 118 mm[Hg] Nicola NILL [facility] 10-01-2022 16:30-0400 Body height 170.18 cm Clarice Scally Other [facility] Other 10-01-2022 16:30-0400 Body mass index (BMI) [Ratio] 32.84 kg/m2 Clarice Scally Other [facility] Other 10-01-2022 16:30-0400 Body weight 95.12 kg Clarice Scally Other [facility] Other 10-01-2022 16:30-0400 Diastolic blood pressure 82 mm[Hg] Clarice Scally Other [facility] Other 10-01-2022 16:30-0400 Respiratory rate 18 /min Clarice Hull Other [facility] Other 10-01-2022 16:30-0400 SaO2% (BldA) [Mass fraction] 97 % Claricesissy Carlsonly Other [facility] Other 10-01-2022 16:30-0400 Systolic blood pressure 116 mm[Hg] Claricesissy Carlsonly Other [facility] Other 08-28-2022 14:30-0400 Body height 170.18 cm Nahid Mcocy Other [facility] Other 08-28-2022 14:30-0400 Body mass index (BMI) [Ratio] 34.55 kg/m2 Nahid Mccoy Other [facility] Other 08-28-2022 14:30-0400 Body weight 100.06 kg Nahid Mccoy Other [facility] Other 08-28-2022 14:30-0400 Diastolic blood pressure 82 mm[Hg] Nahid Mccoy Other [facility] Other 08-28-2022 14:30-0400 Respiratory rate 18 /min Nahid Mccoy Other [facility] Other 08-28-2022 14:30-0400 SaO2% (BldA) [Mass fraction] 97 % Nahid Mccoy Other [facility] Other 08-28-2022 14:30-0400 Systolic blood pressure 121 mm[Hg] Nahid Mccoy Other [facility] Other Encounters Encounter Date Encounter Type Care Provider Facility Start: 02-07-2025 ambulatory Vinayak Loredo lity:[facility] Start: 11-01-2024 End: 11-01-2024 ambulatory Vinayak Baltazar Facility:[facility] Start: 11-01-2024 End: 11-01-2024 Patient encounter procedure Vinayak Baltazar [facility] Start: 10-27-2024 End: 10-27-2024 Evaluation and management of inpatient [facility] Start: 10-20-2024 End: 10-20-2024 ambulatory [facility] Pat Phone Call Provider 1 [facility] - Pre Ad[facility] Start: 10-20-2024 End: 10-20-[address] [facility] Start: 10-18-2024 End: 10-18-2024 ambulatory Hebert Jara MD Facility:[facility] Start: 10-14-2024 ambulatory Vinayak Baltazar Facilit y:[facility] Start: 10-13-2024 End: 10-13-2024 Office outpatient new 30 minutes Becca Schwarz APRN-VP CONSTRUCTION Work Phone: [facility] Comment on above: Positive fecal occul t blood test (Primary Dx); Rectal bleeding; Gastroesophageal reflux disease, unspecified whether esophagitis present Start: 10-13-2024 End: 10-13-2024 ambulatory BECCA SCHWARZ [facility] Start: 10-04-2024 End: 10-04-2024 ambulatory [facility] Start: 09-27-2024 End: 09-27-2024 Office outpatient visit 15 minutes Delgado Murillo DO Work Phone: [facility] Comment on above: Encounter to discuss test results; Vaginal spotting; Hot flashes due to surgical menopause; Surgical menopause Start: 09-27-2024 End: 09-27-2024 ambulatory DELGADO LIDIA Not Available Start: 09-27-2024 End: 09-27-2024 Bamboo flowsheet Delgado Lidia DO Work Phone: [facility] Start: 09-27-2024 End: 09-27-2024 Bamboo [...] PT Start: 08-30-2024 End: 08-30-2024 Departed Referred [facility] [address] Work Phone: Start: 08-30-2024 End: 08-30-2024 ambulatory NON STAFF [facility] Work Phone: Start: 04-05-2024 End: 04-05-2024 ambulatory DELGADO LIDIA Not Available Start: 03-15-2024 End: 03-15-2024 Emergency department patient visit Nicola Neff Facility:[facility] Start: 10-22-2023 End: 10-22-2023 ambulatory JESSICA SANCHEZ Not Available Start: 08-15-2023 End: 08-15-2023 ambulatory NON STAFF [facility] Work Phone: Start: 08-15-2023 End: 08-15-2023 Departed Referred [facility] [address] Work Phone: Start: 12-05-[address] SAMI MCCARTY Facility :[facility] Start: 11-09-2022 End: 11-10-[address] DOCTOR STEIN Facility:[facility] Start: 11-01-2022 End: 11-01-2022 Patient encounter procedure Nicola R NILL [facility] [place] Start: 10-29-2022 End: 10-29-2022 ambulatory Clarice Hull Other [facility] Other Start: 10-29-2022 Telephone encounter Clarice [facility] Start: 10-14-2022 End: 10-14-2022 ambulatory Clarice Hull Other [facility] Other Start: 10-14-2022 Telephone encounter Clarice [facility] Start: 10-01-2022 (FCCCWMNF/U) Weight Management f/u Clarice Hull [facility] Start: 10-01-2022 End: 10-02-[address] LUZ ELENA SAUCEDA [facility] Other Start: 09-19-2022 End: 09-19-2022 ambulatory Nahid Mccoy Other [facility] Other Start: 09-19-2022 Telephone encounter Nahid [facility] Start: 09-18-2022 End: 09-18-[address] LUZ ELENA SAUCEDA Facility:[facility] Start: 09-12-2022 End: 09-13-[address] ABIGAIL GONSALVES Facility:[facility] Start: 08-28-2022 End: 08-28-2022 ambulatory Nahid Mccoy Other [employer] Other Start: 08-28-2022 Nutrition therapy Nahid Mccoy [facility] Start: 07-22-2022 Encounter for genera l adult medical examination without abnormal findings DR SAMI MCCARTY [facility] Start: 07-19-2022 End: 07-20-[address] SAMI MCCARTY Facility:[facility] Start: 07-19-2022 End: 07-20-2022 Encounter for general adult medical examination without abnormal findings DR SAMI MCCARTY Facility:[facility] Start: 07-03-2022 End: 07-04-[address] SAMI MCCARTY Facility:[facility] Start: 06-10-2022 End: 06-11-[address] SAMI MCCARTY Facility:[facility] Start: 05-16-2022 End: 05-18-2022 Evaluation and management of inpatient DR DELGADO MURILLO Facility:[facility] Start: 05-16-2022 Encounter for preprocedural laboratory examination DR DELGADO MURILLO [facility] Start: 05-13-2022 End: 05-14-[address] DELGADO MURILLO Facility:[facility] Start: 05-13-2022 End: 05-14-2022 Encounter for preprocedural laboratory examination DR DELGADO MURILLO Facility:[facility] Start: 05-11-2022 Encounter for preprocedural cardiovascular examination DR DELGADO MURILLO [facility] Start: 05-08-2022 End: 05-09-[address] SAMI MCCARTY Facility:[facility] Start: 05-08-2022 End: 05-09-2022 Encounter for preprocedural cardiovascular examination DR SAMI MCCARTY Facility:[facility] Start: 05-02-2022 End: 05-02-[address] DELGADO MURILLO Facility:[facility] Start: 02-19-2022 End: 02-20-[address] SAMI MCCARTY Facility:[facility] Start: 12-04-2021 End: 12-04-[address] SAMI MCCARTY Facility:[facility] Procedures Date Procedure Procedure Detail Performing Clinician Start: 11-27-2023 Mammography Carol lundy PT Work Phone: Start: 10-23-2023 Microscopic observat ion [Identifier] in Cervix by Cyto stain Carol Webb PT Work Phone: Start: 05-16-2022 Excision of Right Ov roge, Open Approach DR ABIGAIL GONSALVES Start: 05-16-2022 Resection of Bilater al Fallopian Tubes, Open Approach DR ABIGAIL GONSALVES Start: 05-16-2022 Resection of Left Ov roge, Open Approach DR ABIGAIL GONSALVES Start: 05-16-2022 Resection of Uterus, Supracervical, Open Approach DR ABIGAIL GONSALVES Start: 05-28-2021 Colonoscopy Carol lundy PT Work Phone: Start: 11-21-2014 excisional biopsy of enlarging painful recurrent lipomas of the left chest wall and left upper abdomen Nicola BUCHANAN Start: 11-21-2011 Endometrial ablation Mo moyfreddie Brettfede Start: 03-28-2003 Cholecystectomy Vinayak Baltazar Abdominoplasty and liposuction Nicola CHANEL Arthroscopy of knee Nicola CHANEL Comment on above: LEFT Breast biopsy and re lated procedures Nicola KODAKL Comment on above: LEFT section Nicola KODAK L Diagnostic endoscopi c examination of ovary Nicola CHANEL Comment on above: OVARIAN CYSTS X3 Endometrial ablation Nicola BUCHANAN Extraction of wisdom tooth Jered brennanalbaro CHANEL History of cholecystectomy S/P cholecyste ctomy Vinayak Baltazar Laparoscopic cholecystectomy Nicola CANDELARIOL Laparoscopic excisio n of cyst of left ovary Nicola CANDELARIOL Laparoscopic excisio n of cyst of right ovary Nicola BUCHANAN Ligation of fallopian tube Jered zion BUCHANAN Comment on above: DONE WITH C [...] for malignant neoplasm of cervix Pap Smear [facility] Start: 05-28-2026 Screening for malignant neoplasm of colon Colonoscopy [facility] Start: 10-13-2025 Adult BMI Screening Adult BMI Screening [facility] Start: 10-13-2025 Tobacco Screening Tobacco Screening [facility] Start: 11-27-2024 Screening for malignant neoplasm of breast Mammogram [facility] Start: 11-22-2024 End: 11-22-2024 Patient encounter procedure 11/22/2024 1:00 PM EST Office [facility] [address] [id number] Delgado Murillo DO [address] [place] [address] [facility] Start: 10-27-2024 End: 10-27-2024 Admission to same day surgery center [facility] Surgery Comment on above: ESOPHAGOGASTRODUODENOSCOPY DIAGNOSTIC [4 3235 (CPT )] Start: 10-27-2024 End: 10-27-2024 Colonoscopy flx dx w/collj spec when pfrmd [facility] Start: 10-27-2024 End: 10-27-2024 Esophagogastroduodenoscopy transoral diagnostic [facility] Start: 10-27-2024 Subsequent hospital visit by physician [facility] Start: 10-26-2024 End: 10-26-2024 Patient encounter procedure 10/26/2024 1:45 PM EST Office Visit [facility] Surgery [address] [place] [id number] Becca Schwarz, ASSISTANT SPA MANAGER-VP CONSTRUCTION [address] [place] [address] [facility] Start: 10-20-2024 End: 10-20-2024 ambulatory 10/20/2024 4:20 PM EST Support Visit [facility] - Pre Admit [address] [place] [address] [facility] Start: 09-27-2024 End: 09-27-2024 Patient encounter procedure 09/27/2024 3:10 PM EDT Office Visit [facility] [address] [place] [phone] Delgado Murillo DO [address] [place] [address] Arrived [facility] Comment on above: Arrived Start: 09-09-2024 End: 09-09-2024 ambulatory 09/09/2024 4:00 PM EDT Evaluation [facility] [address] [place] [phone] Carol Webb, PT [address] [place] [address] Arrived [facility] Comment on above: Arrived Start: 08-01-2024 COVID-19 Vaccine ( season) COVID-19 Vaccine ( season) [facility] Start: 08-01-2024 Influenza vaccination [facility] Start: 1995 DTaP,Tdap and Td Vaccines (1 - Tdap) DTaP,Tdap and Td Vaccines (1 - Tdap) [facility] Start: 1994 Adult BMI Follow Up Plan Adult BMI Follow Up Plan [facility] Start: 1988 Depression Screening Depression Screening [facility] Start: 1976 Screening for malignant neoplasm of colon [facility] Start: 1976 Tobacco Counseling Tobacco Counseling [facility] CHLAMYDIA TRACHOMATIS (GENITO/ST I) CHLAMYDIA TRACHOMATIS (GENITO/STI) Lab Routine Vaginal spotting Ordered: 09/27/2024 [facility] [employer] Comment on above: Ordered: 09/27/2024 End: 10-13-2025 EGD / Colonoscopy EGD / Colonoscopy GI Routine Positive fecal occult blood test 1 Occurrences starting 10/13/2024 until 10/13/2025 [facility] Comment on above: 1 Occurrences starting 10/13/2024 until 10/13/2025 Neisseria gonorrhoea e DNA [Presence] in Unspecified specimen by NOLA with probe detection Neisseria gonorrhea DNA probe, direct Lab Routine Vaginal spotting Ordered: 09/27/2024 [facility] [employer] Comment on above: Ordered: 09/27/2024 SURESWAB(R) ADVANCED VAGINITIS PLUS, TMA SURESWAB(R) ADVANCED VAGINITIS PLUS, TMA Pathology and Cytology Routine Vaginal spotting Ordered: 09/27/2024 [facility] [employer] Work Phone: Comment on above: Ordered: 09/27/2024 Immunizations Immunization Date Immunization Notes Care Provider Fa [facility] 02-15-2018 SARS-CoV-2 mRNA (ewpypfeywgc-dnoj-cybt ose) vaccine Vinayak Baltazar [facility] 10-02-2004 influenza virus vaccine, unspecified formulation Becca Schwarz APRN-VP CONSTRUCTION Work Phone: [facility] NEGATED: Highlighted row has not occurred!11-01-2022 influenza virus vaccine, unspecified formulation Nicola BUCHANAN [facility] [place] Payers Date Payer Category Payer Self-pay [id number] 2023 Private Health Insurance [employer] [id number] 2023 Unknown [id number]. [id number] 2014 [employer] [facility] [employer] [id number] 1976 Unknown [id number] 2.16840.1.494327.3.579.2. 1976 Unknown [id number] 2.16840.1.273358.3.579.2. 1976 Unknown [id number] 2.16840.1.902386.3.579.2. 59 1976 Unknown [id number] 2.16840.1.738725.3.579.2 1976 Unknown [id number] 2.16840.1.331790.3.579.2. 59 1976 Unknown [id number] 2.16840.1.768129.3.579.2. 1976 Unknown [id number] 2.16840.1.987177.3.579.2. 59 1976 Unknown [id number] 2.16840.1.952196.3.579.2. 59 1976 Unknown [id number] 2.16.840.1.645527.3.579.2. 593 1976 Unknown [id number] 2.16.840.1.319243.3.579.2. 593 1976 Unknown [id number] 2.16.840.1.838631.3.579.2. 593 1976 Unknown [id number] 2.16.840.1.584965.3.579.2. 593 1976 Unknown [id number] 2.16.840.1.467477.3.579.2. 593 1976 Unknown [id number] 2.16.840.1.342716.3.579.2. 593 1976 Unknown [id number] 2.16.840.1.546023.3.579.2. 718 1976 Unknown [id number] 2.16.840.1.888304.3.579.2. 1259 1976 Unknown [id number] 2.16.840.1.373830.3.579.2. 1259 1976 Unknown [id number] 2.16.840.1.826104.3.579.2. 1259 1976 Unknown [id number] 2.16.840.1.226170.3.579.2. 1259 1976 Unknown [id number] 2.16.840.1.831934.3.579.2. 1286 1976 Unknown [id number] 2.16.840.1.412986.3.579.2. 196 1976 Unknown [id number] 2.16.840.1.484185.3.579.2. 196 1976 Unknown [id number] 2.16.840.1.202798.3.579.2. 196 1976 Unknown [id number] 2.16.840.1.443792.3.579.2. 1286 1976 Unknown [id number] 2.16.840.1.256441.3.579.2. 1286 1976 Unknown [id number] 2.16.840.1.562521.3.579.2. 727 1976 Unknown [id number] 2.16.840.1.259541.3.579.2. 727 1959 Self-pay [id number] 1959 Unknown [id number] 2.16.840.1.048666.19 Unknown [id number] 2.16.840.1.158177.3.579.2. 531 Social History Date Type Detail Facility Unknown if ever smoked [facility] Other Start: 10-20-2023 End: 10-22-2023 Sex Assigned At [facility] Start: 11-01-2022 Tobacco smoking status Ex-smoker (finding) [facility] Tobacco smoking status Former sm okeless tobacco user, quit more than 30 days ago [facility] Start: 1975 Sex Assigned At Female [facility] Start: 06-25-2023 Tobacco smoking status [facility] Smokes tobacco daily [facility] History of tobacco use Cigarette Smoker [facility] Start: 04-05-2024 End: 09-27-2024 Alcoholic beverage intake Current drinker of alcohol (finding) [facility] Start: 10-20-2023 End: 10-22-2023 History of Social function [facility] How [...] Not on file [facility] Start: 10-13-2024 End: 10-20-2024 Tobacco smoking status [facility] Occasional tobacco smoker [facility] History of tobacco use [facility] Start: 10-13-2024 End: 10-20-2024 Tobacco use and exposure Smokeless tobacco non-user [facility] Start: 10-13-2024 Alcoholic beverage intake Current non-drinker of alcohol (finding) [facility] Start: 07-06-2015 Sex Female (finding) [facility] Start: 12-06-2022 Gender identity Identifies as female gender (finding) [facility] Start: 12-06-2022 Sexual orientation Homosexual (finding) [facility] Start: 10-20-2024 Alcohol Comment rare [facility] Tobacco Current vaping o r e-cigarette use Smokeless Tobacco Use:. [facility] Tobacco smoking status No Smokin g Status Entered [facility] Functional Status Date Assessment Result Facility 11-01-2024 Functional Status N/A [facility] 11-01-2022 Functional Status N/A General Delgado yaa [place] Clinical Notes 05-16-2022 to 10-20-2024 Perioperative Nursing Note - Tammy Casas RN - 10/20/2024 11:10 AM ESTPerioperative Nursing Note - Tammy Casas RN - 10/20/2024 11:10 AM Houston Hess LPN - 09/27/2024 3:10 PM EDT Note Date & Type Note Facility 10-20-2024 Nurse Note Preoperative Education Checklist- General Surgery date: 10/27/24 Surgery time: 1045a Arrival time: 845a 1. Bring a photo ID and your insurance card with you the day of surgery. You will check in at the main lobby of the [facility]- registration desk is straight ahead as soon as you walk in. Tell them you are here for surgery. 2. If you have a Living Will/Durable Power of Heating Worker for Health Care that is not on file here, please bring a copy the day of surgery. 3. Please shower/bathe the night before surgery with the provided soap or wipes. Do not shower the morning of surgery- you will do use wipes when you arrive here at the hospital before getting into your surgical gown. Do not shave the area of your procedure for 2 days prior to your surgery. 4. NO powder, lotion, perfume/cologne, aftershave, make-up, deodorant, or hair products after you have bathed. 5. NO nail israeli/acrylic on at least one finger. If you are having a hand, wrist or foot surgery then all nail israeli and artificial/acrylic nails must be removed from that hand or foot. 6. Avoid ALL Aspirin and non-steroidal anti-inflammatory drugs and certain vitamins (Ibuprofen, Advil, Aleve, Excedrin, Meloxicam, Celebrex, fish/krill oil, etc.) for 7 days prior to surgery as instructed by your surgeon and/or your prescribing doctor. Tylenol IS ALLOWED. If you are on Ticlid, Xarelto, Eliquis, Pradaxa, Plavix or Coumadin, please check with your prescribing doctor for instructions for when to stop them. 7. If you use an inhaler, continue to use it routinely. 8. Nothing to eat or drink (not even water, gum, mints, or hard candy!) AFTER midnight prior to your surgery. 9. Take only medications that you are instructed to on the morning of surgery with a TINY SIP OF WATER. 10. Choose a responsible adult that will be able to drive you home when you are discharged from your hospital stay for your surgery and can stay with you in your home for 24 hours after your procedure. You must NOT drive any vehicle or operate any machinery for 24 hours after surgery. 11. When you dress for your appointment, please wear loose fitting clothing that is appropriate to accommodate your surgical area procedure. BRING WITH YOU ANY DEVICES YOU MAY NEED: BARON hose, ice machine, sling/swath, brace or special shoe, oversized zip-up or button up shirt, CPAP machine if staying overnight. 12. Do NOT wear jewelry, watches, or any piercings or metal for surgery- leave these valuables and money at home. 13. Do NOT wear contact lenses for surgery- glasses are okay if needed. 14. The anesthesiologist will talk with you the day of surgery and will ask you to sign a Consent Form. 15. Refrain from smoking or any type of tobacco use for at least 8 hours and marijuana for 24 hours prior to arrival for your surgery. 16. If a GREEN BLOOD band is given to you, please bring it with you for the day of surgery. 17. Notify your surgeon if you develop any illness before your surgery. 18. If you are staying overnight, please DO NOT BRING your home medications with you. 19. If you have any questions prior to surgery, please call the Preadmission Testing office at [phone], Mon.-Fri. 7 a.m.-3 p.m. Leave a voicemail if needed. Pre-Surgery Instructions: Medication Instructions acidophilus-pectin, citrus 25 million cell -100 mg tablet Stop taking 0 days prior to procedure ALPRAZolam (XANAX) 0.25 mg tablet Stop taking 0 days prior to procedure amphetamine-dextroamphetamine XR (ADDERALL XR) 30 mg 24 hr capsule Stop taking 0 days prior to procedure aspirin 325 mg EC tablet Check with prescribing doctor for instructions celecoxib (CeleBREX) 100 mg capsule Stop taking 1 week prior to procedure docusate sodium (COLACE) 50 mg capsule Stop taking 0 days prior to procedure estradioL (ESTRACE) 0.5 mg tablet Stop taking 0 days prior to procedure lamoTRIgine (LaMICtal) 25 mg tablet Take morning of procedure lisinopriL (PRINIVIL,ZESTRIL) 20 mg tablet Stop taking 0 days prior to procedure metoprolol tartrate (LOPRESSOR) 100 mg tablet Take morning of procedure omeprazole (PriLOSEC) 40 mg capsule Stop taking 0 days prior to procedure polycarbophil (FIBERCON) 625 mg tablet Stop taking 0 days prior to procedure semaglutide (OZEMPIC) 0.25 mg or 0.5 mg(2 mg/1.5 mL) pen injector Stop taking 1 week prior to procedure tiZANidine (ZANAFLEX) 4 mg tablet Stop taking 0 days prior to procedure [facility] agri[employer]capital [facility] 10-20-2024 Miscellaneous Notes Preoperative Education Checklist- General Surgery date: 10/27/24 Surgery time: 1045a Arrival time: 845a 1. Bring a photo ID and your insurance card with you the day of surgery. You will check in at the main lobby of the [facility]- registration desk is straight ahead as soon as you walk in. Tell them you are here for surgery. 2. If you have a Living Will/Durable Power of Heating Worker for Health Care that is not on file here, please bring a copy the day of surgery. 3. Please shower/bathe the night before surgery with the provided soap or wipes. Do not shower the morning of surgery- you will do use wipes when you arrive here at the hospital before getting into your surgical gown. Do not shave the area of your procedure for 2 days prior to your surgery. 4. NO powder, lotion, perfume/cologne, aftershave, make-up, deodorant, or hair products after you have bathed. 5. NO nail israeli/acrylic on at least one finger. If you are having a hand, wrist or foot surgery then all nail israeli and artificial/acrylic nails must be removed from that hand or foot. 6. Avoid ALL Aspirin and non-steroidal anti-inflammatory drugs and certain vitamins (Ibuprofen, Advil, Aleve, Excedrin, Meloxicam, Celebrex, fish/krill oil, etc.) for 7 days prior to surgery as instructed by your surgeon and/or your prescribing doctor. Tylenol IS ALLOWED. If you are on Ticlid, Xarelto, Eliquis, Pradaxa, Plavix or Coumadin, please check with your prescribing doctor for instructions for when to stop them. 7. If you use an inhaler, continue to use it routinely. 8. Nothing to eat or drink (not even water, gum, mints, or hard candy!) AFTER midnight prior to your surgery. 9. Take only medications that you are instructed to on the morning of surgery with a TINY SIP OF WATER. 10. Choose a responsible adult that will be able to drive you home when you are discharged from your hospital stay for your surgery and can stay with you in your home for 24 hours after your procedure. You must NOT drive any vehicle or operate any machinery for 24 hours after surgery. 11. When you dress for your appointment, please wear loose fitting clothing that is appropriate to accommodate your surgical area procedure. BRING WITH YOU ANY DEVICES YOU MAY NEED: BARON hose, ice machine, sling/swath, brace or special shoe, oversized zip-up or button up shirt, CPAP machine if staying overnight. 12. Do NOT wear jewelry, watches, or any piercings or metal for surgery- leave these valuables and money at home. 13. Do NOT wear contact lenses for surgery- glasses are okay if needed. 14. The anesthesiologist will talk with you the day of surgery and will ask you to sign a Consent Form. 15. Refrain from smoking or any type of tobacco use for at least 8 hours and marijuana for 24 hours prior to arrival for your surgery. 16. If a GREEN BLOOD band is given to you, please bring it with you for the day of surgery. 17. Notify your surgeon if you develop any illness before your surgery. 18. If you are staying overnight, please DO NOT BRING your home medications with you. 19. If you have any questions prior to surgery, please call the Preadmission Testing office at [phone], Mon.-Fri. 7 a.m.-3 p.m. Leave a voicemail if needed. Pre-Surgery Instructions: Medication Instructions acidophilus-pectin, citrus 25 million cell -100 mg tablet Stop taking 0 days prior to procedure ALPRAZolam (XANAX) 0.25 mg tablet Stop taking 0 days prior to procedure amphetamine-dextroamphetamine XR (ADDERALL XR) 30 mg 24 hr capsule Stop taking 0 days prior to procedure aspirin 325 mg EC tablet Check with prescribing doctor for instructions celecoxib (CeleBREX) 100 mg capsule Stop taking 1 week prior to procedure docusate sodium (COLACE) 50 mg capsule Stop taking 0 days prior to procedure estradioL (ESTRACE) 0.5 mg tablet Stop taking 0 days prior to procedure lamoTRIgine (LaMICtal) 25 mg tablet Take morning of procedure lisinopriL (PRINIVIL,ZESTRIL) 20 mg tablet Stop taking 0 days prior to procedure metoprolol tartrate (LOPRESSOR) 100 mg tablet Take morning of procedure omeprazole (PriLOSEC) 40 mg capsule Stop taking 0 days prior to procedure polycarbophil (FIBERCON) 625 mg tablet Stop taking 0 days prior to procedure semaglutide (OZEMPIC) 0.25 mg or 0.5 mg(2 mg/1.5 mL) pen injector Stop taking 1 week prior to procedure tiZANidine (ZANAFLEX) 4 mg tablet Stop taking 0 days prior to procedure [facility] History of Presen t illness Narrative Images from the original note [...] 05/28/2021 Performed by Nicola Gee DO at [facility] COLONOSCOPY N/A 05/04/2018 Performed by Nicola Gee DO at [facility] CYST REMOVAL from uterus and ovaries x 5 EGD N/A 05/04/2018 Performed by Nicola Gee DO at [facility] ESOPHAGOGASTRODUODENOSCOPY N/A 05/28/2021 Performed by Nicola Gee DO at [facility] KNEE ARTHROSCOPY Left KNEE ARTHROSCOPY Right LAPAROSCOPIC [...] muscle spasms., Disp: , Rfl: peg 3350-sod sulf,udpn-mwl-dqa 178.7-7.3-0.5 gram recon soln, Take 1 kit [...] patient/family/caregiver Referring and communicating with other health hiv/aids care nurse Positive fecal occult blood test [R19.5] BECCA SCHWARZ APRN-SOUMYA [facility] General Surgery [place] This note was created with the assistance of a speech recognition program. While intending to generate a timely document that accurately reflects the content of the visit, no guarantee can be provided that every grammatical or spelling mistake has been or will be identified or corrected. Thank you for your understanding. MAYRA Barrett 10/13/24 1513 documented in this encounter [facility] [place] [employer] 09-27-2024 History of Presen t illness Narrative Reason for Appointment: Patient ID: Horacio Keating is a 49 y.o. female who presents for Results Patient presents today for Consult appointment. MEDICATIONS Current Outpatient Medications Medication Instructions ALPRAZolam (XANAX) 0.25 mg, Oral, 3 times daily PRN doxepin (SINEQUAN) 10 mg, Oral, Nightly fluconazole (DIFLUCAN) 150 mg, Oral, Daily, Repeat in 7 days if symptoms persist. meloxicam (MOBIC) 15 mg, Oral, Daily metoprolol tartrate (LOPRESSOR) 50 mg, Oral, 2 times daily omeprazole (PRILOSEC) 40 mg, Oral, 2 times daily phentermine (ADIPEX-P) 37.5 mg, Oral, Daily before breakfast tiZANidine (ZANAFLEX) 8 mg, Oral, Nightly ALLERGIES Allergies Allergen Reactions Albuterol Other convulsions NEED TO CUT DOWN ADRENALIN TO PREVENT SEIZURES Other Reaction(s): seizure Bee Venom Other Reaction(s): Nausea, Swelling Egg-Derived Products Other Reaction(s): Hives, Unknown Nitrofurantoin Swelling Other Reaction(s): Neck swelling, Unknown Nitrofurantoin Macrocrystal Other Reaction(s): Unknown Other PROBLEMS Active Ambulatory Problems Diagnosis Date Noted No Active Ambulatory Problems Resolved Ambulatory Problems Diagnosis Date Noted No Resolved Ambulatory Problems Past Medical History: Diagnosis Date Breast lump History of degenerative joint disease Hypertension (CMS/HCC) IBS (irritable bowel syndrome) OA (osteoarthritis) Ovarian cyst Pre-eclampsia Seizures (CMS/HCC) TMJ syndrome HISTORY PAST MEDICAL HISTORY SOCIAL HISTORY Past Medical History: Diagnosis Date Breast lump History of degenerative joint disease Hypertension (CMS/HCC) IBS (irritable bowel syndrome) OA (osteoarthritis) Ovarian cyst Pre-eclampsia Seizures (CMS/HCC) adrenaline induced TMJ syndrome Social History Tobacco Use Smoking status: Every Day Current packs/day: 0.50 Types: Cigarettes Smokeless tobacco: Not on file Substance Use Topics Alcohol use: Yes Comment: Alcohol: 1 or 2 drinks, 2 to 4 times a month; Caffeine: 1-2 cups/day Drug use: Never FAMILY HISTORY Family History Problem Relation Name Age of Onset Thyroid disease Mother Osteoporosis Mother Diabetes Father Hypertension Father Stroke Father Breast cancer Maternal Grandmother Lung cancer Maternal Grandfather Ovarian cancer Paternal Grandmother Diabetes Paternal Grandmother Leukemia Other Great Aunts Other (other unknown cancer) Other Great Aunts SURGICAL HISTORY Past Surgical History: Procedure Laterality Date ARTHROCENTESIS, RIGHT SHOULDER subacromial space BELT ABDOMINOPLASTY 2011 tummy tuck BREAST LUMPECTOMY Left 1999 EXCISION 2015 lipoma and cyst left groin and right thigh HYSTERECTOMY 2021 OTHER SURGICAL HISTORY 2014 uterine ablation PELVIC LAPAROSCOPY 2006 laparoscopy-operative POLYPECTOMY 2005 uterine polyp removal NH LAP,CHOLECYSTECTOMY 2003 NH LIGATION,FALLOPIAN TUBE W/ 2005 c-sec w/tubal [place] TMJ ARTHROSCOPY/SURGERY 1996 SHOULDER ARTHROSCOPY Left REVIEW OF SYSTEMS Review of Systems: Review of Systems Genitourinary: Positive for vaginal bleeding. All other systems reviewed and are negative. OBJECTIVE Objective: Physical Exam Constitutional: Appearance: Normal appearance. She is well-developed. Genitourinary: Vulva normal. Vaginal cuff intact. Cervix is absent. Uterus is absent. Cardiovascular: Rate and Rhythm: Normal rate and regular rhythm. Pulmonary: Effort: Pulmonary effort is normal. Breath sounds: Normal breath sounds. Abdominal: General: Bowel sounds are normal. There is no distension. Palpations: Abdomen is soft. Tenderness: There is no abdominal tenderness. There is no guarding or rebound. Musculoskeletal: General: No swelling. Normal range of motion. Right lower leg: No edema. Left lower leg: No edema. Neurological: Mental Status: She is alert and oriented to person, place, and time. Skin: General: Skin is warm and dry. Psychiatric: Mood and Affect: Mood normal. Behavior: Behavior normal. Vitals and nursing note reviewed. Exam conducted with a thermostatic controls supervisor present. Vitals: Estimated body mass index is 30.07 kg/m as calculated from the following: Height as of 06/26/23: 5' 7 . Weight as of 10/22/23: 192 lb. BP: No LMP recorded. ASSESSMENT & PLAN ICD-10-CM 1. Encounter to discuss test results Z71.2 Patient presents today to review ultrasound results and patient voiced that she does have irregular vaginal spotting. Patient does still have a cervix after hysterectomy. Vaginal cultures obtained without difficulty. Patient to return to clinic for annual appointment. Documented by Kasey Hess LPN on behalf of: Delgado Murillo DO documented in this encounter [facility] 09-09-2024 History of Presen t illness Narrative Images from the original note [...] No resulting surgeries. 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 Also notes poor balance with no diagnosed [...] Keep all follow-up visits. Medicines ? Take quba-xha-novmomv and prescription medicines only as told by [...] work harder to (more content not included)... [facility] 10-01-2022 Evaluation note Encounter Date Diagnosis [...] was counseling done by myself, Ann ANGLIN. [facility] Other 09-28-2022 Evaluation note* Encounter Date Diagnosis Assessment Notes Treatment Notes Treatment Clinical Notes Aug, Abnormal weight gain (ICD-10 - R63.5) Aug, Prediabetes (ICD-10 - R73.03) Aug, Mixed hyperlipidemia (ICD-10 - E78.2) Aug, Hypertension (ICD-10 - I10) Aug, Obstructive sleep apnea (ICD-10 - G47.33) Aug, GERD (gastroesophageal reflux disease) (ICD-10 - K21.9) Aug, Metabolic syndrome X (ICD-10 - E88.81) [facility] Other 06-16-2022 NoteDISCHARGE SUMMARY DISCHARGE DATE: 05/18/2022 [...] pain free and no longer on narcotics. [facility] Signed and Approved by: DR DELGADO MURILLO . 05/20/2022 07:51:00[facility] [id number] NoteThe [place], [place] NAME: HORACIO PUGH DATE OF : MEDICAL REC#: [id number] LINEMAN: Luis LEE [facility] ADMIT DATE: 05/16/2022 11:05:00 ANIMAL HERDER DATE: 05/17/2022 21:20 DICTATING PHYSICIAN: DELGADO MURILLO DICTATION DATE: 05/16/2022 15:02 OP Note OPERATION DATE: 05/16/2022 PROCEDURE: Supracervical hysterectomy with left salpingo-oophorectomy with right salpingectomy and right ovarian cystotomy of approximately 3 cm cyst. SURGEON: Delgado Murillo D.O. ARC CUTTER PLASMA ARC: SHUKRI Bailon URINE OUTPUT: Yellow and clear. [...] Approved by: DR DELGADO MURILLO . 05/23/2022 10:30:00[facility] Center[facility] + Plan note No data available for this section General Surgery [place] Evaluation + Plan note Future Appointments Appointment Date:02/07/2025 02:15:00 PM Scheduled Provider:Vinayak Baltazar MD Location:[facility] Appointment Type:[facility] Follow Up Future Scheduled Tests Laboratory* Antimitochondrial Antibody, Quantitative 11/01/24 * Smooth Muscle Antibody Screen 11/01/24 * IgA, Quant. 11/01/24 * IgG, Quant. 11/01/24 * t-Transglutaminase IgA 11/01/24 * Comprehensive Metabolic Panel 11/01/24 * Comprehensive Metabolic Panel 12/02/24 * Comprehensive Metabolic Panel 01/02/25 [facility] Dig[facility]ive Health evalurvjkx noteNo InformationNort [employer] Other evaluation noteNo assessment information available [facility] Work Phone: [email or web address] note* Diagnosis Neck pain- Primary Cervicalgia Chronic bilateral low back pain with bilateral sciatica [facility] Diagnosis Positive fecal occult blood test- Primary Rectal bleeding Hemorrhage of rectum and anus Gastroesophageal reflux disease, unspecified whether esophagitis present documented in this encounter [facility]* Diagnosis Encounter to discuss test results Other specified counseling Vaginal spotting Other specified noninflammatory disorder of vagina Hot flashes due to surgical menopause Surgical menopause documented in this encounter [facility] general [...] History TMJ surgery Hospitalization History see above [facility] Other Hisqhbl general Narrative - Reported* Type Description Date [...] ER-abd . [facility] 09[facility]22 [facility] Other Hospital Discharge instructions No data available for this section General Surgery [place] InstructionsNot on filedocumented in this encounter [facility] SystemInstructionsNot on filedocumented in this encounter [facility] CenterLegal[facility] agri.capital SystemProgress note No data available for this section General Surgery [place] Summary Purpose Family History Relationship Condition Age [...] Visit Chief Complaint WELLNESS Chief Complaint [facility] Additional Source Comments REASON FOR VISIT (unrecogniz ed section and content) Specialty Diagnoses / Procedures Referred By Contac t Referred To Contact Physical Therapy Diagnoses Other spondylosis, lumbar region Procedures [place] PHYS THERAPY EVALUATION Edwige Magaña MD [facility] [place] [address] [place] [address] Carol Webb, PT [address] [place] [address] Referral ID Status Reason Start Date Expiration Date V isits Requested Visits Authorized [id number] Authorized 09/02/2024 03/01/2025 40 40 Reason Comments POSITIVE OCCULT TEST POSITIVE OCCULT STO OL, REF BY DR. MCCARTY Reason Comments Results Patient Care team informatio n (unrecognized section and content) Personnel Name: Sami Mccarty MD Address: Address: [address] [place] [id number] Team Status: Active Member Role Status Dates NON STAFF Primary Care Provider Active Team Status: Inactive Member Role Status Dates NON STAFF Primary Care Provider Active Dedrick Fuller , DO [facility] Attending Provider Active Team Status: Inactive Member Role Status Dates NON STAFF Primary Care Provider Active Start: August 30, 2024 End: August 30, 2024 Dedrick Fuller - [facility] , DO [facility] Attending Provider Active Start: August 30, 2024 End: August 30, 2024 Plastic Extruding Machine Operator Relationship Specialty Start Date End Date Sami Mccarty MD [address] [phone] PCP - General Family Medicine 06/26/23 Plastic Extruding Machine Operator Relationship Specialty Start Date End Date Sami Mccarty MD [address] [place] [phone] PCP - General Family Medicine 06/26/23 Plastic Extruding Machine Operator Relationship Specialty Start Date End Date Sami Mccarty MD PCP - General 05/04/18 Plastic Extruding Machine Operator Relationship Specialty Start Date End Date Sami Mccarty MD PCP - General 05/04/18 Plastic Extruding Machine Operator Relationship Specialty Start Date End Date Sami Mccarty MD [address] [place] [address] PCP - General Family Medicine 06/26/23 INFORMATION SOURCE (unrecogn ized section and content) DATE CREATED AUTHOR 12/03/2022 [facility] DATE CREATED AUTHOR AUTHOR'S ORGANIZ ATION 03/21/2024 [facility] DATE CREATED AUTHOR AUTHOR'S ORGANIZ ATION 08/31/2024 [facility] DATE CREATED AUTHOR AUTHOR'S ORGANIZ ATION 09/28/2024 [facility] EPIC DATE CREATED AUTHOR AUTHOR'S ORGANIZ ATION 10/15/2024 [facility] DATE CREATED AUTHOR AUTHOR'S ORGANIZ ATION 10/23/2024 [facility] DATE CREATED AUTHOR AUTHOR'S ORGANIZ ATION 10/29/2024 [facility] DATE CREATED AUTHOR AUTHOR'S ORGANIZ ATION 11/02/2024 [facility] Goals (unrecognized section and content) Goals [...] BE BASED ON THE PRIMARY CLINICAL RECORDS. [facility]. provides no warranty or guarantee of the accuracy or completeness of information in this document.
== END 2024-11-12 13:30 | disposition home or self-care (01) ==
LOC: MRI 13:29
PROVIDERS: PCP Family Medicine; Visit Provider Nurse Practitioner
DX: M50.30 Other cervical disc degeneration, unspecified cervical region (principal); M47.812 Spondylosis without myelopathy or radiculopathy, cervical region
CPT/HCPCS: 72141

== ENCOUNTER 2024-11-15 07:49 | Day surgery (SDC) | payer OTHER, SELFPAY ==
[2024-11-15 07:57] VITALS: BP 92/60; PULSE 74; TEMP 36.2; O2SAT 98
[2024-11-15 08:10] LABS: Glucometer 120 mg/dL (74-106)
[2024-11-15 08:38] VITALS: BP 91/52; PULSE 72; O2SAT 99
[2024-11-15 08:40] VITALS: BP 93/55; PULSE 72; O2SAT 98
--- NOTE | 2024-11-15 08:41 | W.PM.PROCNOT ---
Date of procedure: 11/15/24 Pre-op diagnosis: Pain due to right sacroiliitis Post-op diagnosis: same as pre-op Procedure: Procedure: Right sacroiliac joint injection Medications: Bupivacaine 0.25% 3cc, kenalog 40mg After informed consent was obtained, the patient was brought to the medical procedure unit and placed in the prone position, when a timeout was completed verifying correct patient, procedure, site, positioning, implant, and/or special equipment.? The skin overlying the area was prepped and draped in standard sterile fashion using alcohol.? A 25-gauge needle was inserted towards the right sacroiliac joint under direct fluoroscopic imaging.? Needle tip was advanced until the joint was encountered.? We instilled a total of 2 mL of solution.? Postoperatively needles were removed.? The patient tolerated the procedure well without complication.? The patient reported reduction in pain symptoms postoperatively. Anesthesia: Local Surgeon: Hebert Jara Pathology: none sent Condition: stable Disposition: no change
[2024-11-15] MEDS: LIDOCAINE HCL 2% 400 MG/20 ML MDV INJ (08:42)
[2024-11-15] MEDS: IOHEXOL 240 MG/ML - 10 ML VIAL 12 MG INJ (08:42)
[2024-11-15] MEDS: BUPIVACAINE HCL 0.25% PF 25 MG/10 ML VIAL 2 ML INJ (08:42)
[2024-11-15] MEDS: METHYLPREDNISOLONE ACETATE 40 MG/ML VIAL INJ (08:43)
== END 2024-11-15 08:46 | disposition home or self-care (01) ==
LOC: SURGOUT 07:49
PROVIDERS: PCP Family Medicine; Visit Provider Anesthesiology
DX: M46.1 Sacroiliitis, not elsewhere classified (principal); E11.9 Type 2 diabetes mellitus without complications; Z79.85 Long-term (current) use of injectable non-insulin antidiabetic drugs; Z79.84 Long term (current) use of oral hypoglycemic drugs
CPT/HCPCS: 27096; 36415; 82948; J0665; J1010; Q9966

== ENCOUNTER 2024-11-18 13:59 | Outpatient (OUT) | payer OTHER, SELFPAY ==
--- NOTE | 2024-11-18 14:03 | P.CN_ITS ---
Consult Note: HPI Data of Consult Patient: known to practice within the last 3 years Consult date: 09/20/24 Requesting Physician: China Streeter NP Primary Care Provider: Varun Marinelli MD Consult Narrative Reason for consult: low back, leg pain, neck and shoulder pain Narrative: 49yof who presents for assessment. worsening neck and low back pain with pain that radiates into bilateral lower extremities. imaging reviewed, significant for moderate canal stenosis at l3-4, as well as more mild stenosis at other levels. synovial cyst seen at l3-4 with some compression of nerve root. multilevel spondylosis noted. cervical imaging consistent with multilevel spondylosis, worst at c4-5 and c5-6. has continued in a series of provider directed home exercises >6 weeks, without lasting benefit. has tried various nsaids and muscle relaxers, without significant benefit. denies adverse med side effects. recently underwent right SIJ injection with mild relief ongoing, around 25%. 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, unspecified (ICD-10) Heartburn ?R12 - Heartburn (ICD-10) Acid reflux ?K21.9 - Gastro-esophageal reflux disease without esophagitis (ICD-10) Obesity ?E66.9 - Obesity, unspecified (ICD-10) Diabetes ?E11.9 - Type 2 diabetes mellitus without complications (ICD-10) Former smoker ?Z87.891 - Personal history of nicotine dependence (ICD-10) Sleep apnea ?G47.30 - Sleep apnea, unspecified (ICD-10) Hypertension ?I10 - Essential (primary) hypertension (ICD-10) High cholesterol ?E78.00 - Pure hypercholesterolemia, unspecified (ICD-10) Surgical History S/P excision of lipoma ?Z98.890 - Other specified postprocedural states (ICD-10) ?Z86.018 - Personal history of other benign neoplasm (ICD-10) S/P left knee arthroscopy ?Z98.890 - Other specified postprocedural states (ICD-10) Hx laparoscopic cholecystectomy ?Z90.49 - Acquired absence of other specified parts of digestive tract (ICD- 10) H/O breast surgery ?Z98.890 - Other specified postprocedural states (ICD-10) H/O laparoscopy ?Z98.890 - Other specified postprocedural states (ICD-10) H/O: ?Z98.891 - History of uterine scar from previous surgery (ICD-10) H/O abdominoplasty ?Z98.890 - Other specified postprocedural states (ICD-10) H/O: hysterectomy ?Z90.710 - Acquired absence of both cervix and uterus (ICD-10) Meds Home Medications and Allergies Home Medications ?Medication ?Instructions ?Recorded ?Confirmed ?Type alprazolam 0.25 mg tablet 0.25 mg PO TID 03/27/24 11/15/24 History omeprazole 40 mg capsule,delayed 40 mg PO BID 03/27/24 11/15/24 History release aspirin 325 mg tablet 325 mg PO DAILY 09/02/24 11/15/24 History dextroamphetamine-amphetamine 30 30 mg PO DAILY 09/02/24 11/15/24 History mg tablet (Adderall) lisinopril 20 mg tablet 20 mg PO DAILY 09/02/24 11/15/24 History metoprolol tartrate 75 mg tablet 75 mg PO BID 09/02/24 11/15/24 History semaglutide 0.25 mg or 0.5 mg (2 0.25 mg subcut QWEEK 09/02/24 11/15/24 History mg/3 mL) subcutaneous pen injector (Ozempic) tizanidine 4 mg tablet (Zanaflex) 4 mg PO TID PRN muscle spasticity 09/20/24 11/15/24 History celecoxib 100 mg capsule mg 10/18/24 History estradiol 0.5 mg tablet (Estrace) 0.5 mg PO DAILY 10/18/24 11/15/24 History lamotrigine 25 mg tablet (Lamictal) 25 mg PO DAILY 10/18/24 11/15/24 History metformin 500 mg tablet 500 mg PO BID 10/18/24 11/15/24 History Allergies Allergy/AdvReac Type Severity Reaction Status Date / Time nitrofurantoin (From Allergy Mild Anaphylaxis Verified 11/15/24 09:14 Macrobid) albuterol AdvReac Severe convulsions Verified 11/15/24 09:14 pecan Allergy Unknown Anaphylaxis Uncoded 11/15/24 09:14 Exam Constitutional Documenting provider has reviewed patient's vital signs: yes Common normals: no apparent distress, oriented x3, healthy appearing, alert and well nourished General appearance: cooperative HENMT Common normals: normocephalic, hearing grossly normal bilaterally and moist oral mucous membranes Head and scalp: normocephalic Eye Common normals: PERRL Pupil: PERRL Neck & C-Spine Common normals: full ROM General: normal visual inspection Cervical spine: pain with cervical ROM and cervical spine tenderness Other: intermittent C5,6/7 radiculopathy to BUE strength 5/5 in BUE positive facet loading pain over C4-T2 facets Chest Common normals: inspection of chest normal Respiratory Common normals: normal respiratory effort, no retractions and no use of accessory muscles Back & Pelvis Thoracic spine/upper back: ROM limited and pain with ROM Lumbar spine/lower back: ROM limited, pain with ROM and straight leg raise positive right Sacroiliac joints: SI joint(s) abnormal Other: right sij positive javier(patricks), gaenslens, thigh thrust, compression test strength 5/5 in BLE decreased sensation to right L3,4,5 pattern Neuro Common normals: oriented x3, CN's II-XII intact bilaterally, moves all extremities, no focal motor deficits, no sensory deficits noted and deep tendon reflexes 2+ bilaterally Sensorium/orientation: alert Motor exam: strength 5/5 throughout and no movement abnormalities noted Psych Common normals: mental status grossly normal, thought process normal, arslan ative, affect normal, speech normal and activity/motor behavior normal Speech: normal speech Thought process: normal thought process Results Additional Findings Additional findings: If on a controlled substance or opioids, I have checked an [place] report on this patient and there are no aberrancies noted in the prescribing history.??If on a controlled substance or opioid a drug screen was completed and reviewed within the last year, and if there has not been a drug screen completed we ordered one today to monitor higher risk, state monitored pain medication use. As part of providing excellent, safe, comprehensive care, the following was completed at our patient's visit: 1. A medication reconciliation and review to ensure accurate knowledge of current/active medications, including asking our patients to inform us about any [id number] medications or herbal remedies/nutritional supplements/alternative remedies. 2. A review to specifically ensure our patients have had annual screening for screening for depression, screening for tobacco use, and screening for unhealthy alcohol use. For concerning screenings had a discussion with the patient, provided patient education, and recommended follow-up with primary care provider when appropriate. If patient noted with a risk of falling, they received education on strength, gait, and balance training to prevent future risk of falling. Assessment and Plan Assessment and Plan (1) Cervical radiculopathy: (2) Sacroiliac joint dysfunction: (3) Lumbar stenosis with neurogenic claudication: (4) Lumbar degenerative disc disease: (5) Degenerative disc disease, cervical: (6) Cervical spondylosis: (7) Lumbar spondylosis: Plan bilateral c5-6 TFESI under fluoroscopy continue current medications continue HEP as tolerated f/u 2 weeks after injection
== END 2024-11-18 14:00 | disposition home or self-care (01) ==
LOC: PM 13:59
PROVIDERS: PCP Family Medicine; Visit Provider Nurse Practitioner
DX: M54.12 Radiculopathy, cervical region (principal); M53.3 Sacrococcygeal disorders, not elsewhere classified; M48.062 Spinal stenosis, lumbar region with neurogenic claudication; M51.369 Other intervertebral disc degeneration, lumbar region without mention of lumbar back pain or lower extremity pain; M50.30 Other cervical disc degeneration, unspecified cervical region; M47.812 Spondylosis without myelopathy or radiculopathy, cervical region; M47.816 Spondylosis without myelopathy or radiculopathy, lumbar region
CPT/HCPCS: G0463

== ENCOUNTER 2024-11-22 21:12 | Outpatient (REF) | payer OTHER, SELFPAY ==
--- OUTSIDE RECORDS SUMMARY | 2024-11-22 21:15 | XMS_ITS | CCD ---
Author Organization [facility] Care Team Providers Care Small Products Ii Assembler Name Role Phone Nahid Mccoy Unavailable Clarice Hull Unavailable Sami Mccarty Primary Care Physician [phone] DR ABIGAIL GONSALVES V Consulting Unavailable LUL, [...] Rolle Consulting Unavailable MIRIANAMOLSIENNA Rodrigues Consulting Unavailable READER, SAMI Consulting Unavailable LUL, [...] GALLARDO Admitting Unavailable ZIEBER, DR LUZ ELENA Gee Unavailable PAY, DR CRAMER Attending Unavailable PAY, [...] NON STAFF Primary Care Provider Unavailsalome Fuller [facility] Ded[facility] Attending Provider Alina [facility] Attending Unavailable Alina [facility] Admitting Unavailable NON STAFF Primary Care Unavailable Sami Mccarty MD Primary Care Provider [phone] JESSICA SANCHEZ Attending Unavailable DELGADO MURILLO Attending Unavailable CAROL WEBB Attending Unavailable EDWIGE MAGAÑA F Referring Unavailable DELGADO MURILLO Attending Unavailable Sami Mccarty MD Primary Care Provider [phone] BECCA SCHWARZ Attending Unavailable SAMI MCCARTY Referring Unavailable SAMI MCCARTY Primary Care Unavailable Marek BURK, Hebert Rock Attending Unavailable Marek BURK, Hebert Rock Attending Unavailable Marek BURK, Hebert Rock Attending Unavailable Vinayak Baltazar Attending Unavailable Vinayak Baltazar Attending Unavailable SAMI MCCARTY Referring Unavailable SAMI MCCARTY Primary Care Unavailable TATYANA COKER Admitting Unavailable TATYANA COKER Attending Unavailable SAMI MCCARTY Primary Care Unavailable Allergies Allergy Classification Reported Allergen(s) Allergy Type Date of Onset Reaction(s) Facility (10 sources) NITROFURANTOIN, MACROCRYSTALS / Nitrofurantoin, Monohydrate; 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: [nitrofurantoin] Drug Allergy 05-01-20 18 Neck swelling (finding), Swelling [facility] (2 sources) Albuterol Drug Allergy [facility] Comment on above: NEED TO CUT DOWN ADR ENALIN TO PREVENT SEIZURES (3 sources) Bee/Wasp/Ant venom; 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: [Bee Stings] Allergy to substance Nausea, Swelling [facility] (2 sources) PECANS 1 Food allergy [facility] Comment on above: AIRWAY CONSTRICTION (2 sources) bee venom Drug allergy (disorder) 06-09-20 15 [facility] (2 sources) egg extract Drug Allergy 06-09-20 15 [facility] (4 sources) Nitrofurantoin; 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: [Macrobid] Drug Allergy 05-02-20 12 [facility] (2 sources) pecan pollen extract Drug Allergy [facility] (4 sources) tree nut, unspecified; 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: [TREE NUT] Drug allergy (disorder) 06-09-20 15 [facility] (12 sources) Albuterol; 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: [albuterol] Drug Allergy 07-16-20 17 Other, Other (See Comments) [facility] Repository (1 source) Nitrofurantoin Drug Allergy 10-01-20 22 [facility] (8 sources) Honey bee venom Allergy to substance 04-05-20 24 [facility] (8 sources) Nitrofurantoin Drug Allergy 05-01-20 18 Swelling [facility] (8 sources) Nitrofurantoin Drug Allergy 04-05-20 24 [facility] (8 sources) Egg-Derived Products Drug Allergy 04-05-20 24 [facility] (12 sources) Other; 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: [OTHER] Propensity to adverse reactions 05-13-20 05 [facility] (2 sources) NITROFURANTOIN MONOHYD/M-CRYST; 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: [NITROFURANTOIN MONOHYD/M-CRYST] Propensity to adverse reactions to drug (disorder) 05-01-20 [facility] Repository (2 sources) Bee Venom Protein (Honey Bee); 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: [BEE VENOM PROTEIN (HONEY BEE)] Propensity to adverse reactions to drug 04-05-20 [facility] [employer] System (1 source) Egg; 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: [Eggs] Food allergy (disorder) [facility] Repository (1 source) PECANS; 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: [PECANS] Food allergy (disorder) [facility] Medications Current Medications Medication Drug Class(es) Dates Sig (Normalized) Sig (Original) 0.25 MG, 0.5 MG Dose 3 ML semaglutide 0.68 MG/ML Pen Injector [Ozempic] (1 source) Start: 11-01-2024 Ozempic 2 mg/3 mL (0.25 mg or 0.5 mg dose) subcutaneous solution SubCutaneous, Refills(s) 0 Start Date: 11/01/24 Status: Ordered ALPRAZolam 0.25 mg oral tablet (18 sources) Benzodiazepine Start: 11-17-2014 take 1 tablet [...] Ordered take 1 capsule by mo [facility] once daily in the morning amphetamine-dextroamphetamine XR [...] take 1 tablet [facility] mouth [facility] aspirin 325 mg EC tablet Take 1 tablet (325 mg total) by mouth in the morning. Active take 1 tablet by mouth once janett y Aspirin 81 81 MG 1 tablet Orally Once a day Active FiberCon (3 sources) Start: 11-01-2024 FiberCon See I nstructions, 3 caps BID, Refills(s) 0 Start Date: 11/01/24 Status: Ordered take 1 tablet [facility] mouth [facility] polycarbophil (FIBERCON) 625 mg tablet Take 1 tablet (625 mg total) by mouth in the morning. Active celecoxib 100 mg oral capsule (3 sources) Nonsteroidal Anti-inflammatory Drug Start: 11-01-2024 take 1 capsule by mouth twice daily celecoxib 100 mg Cap = 1 cap(s), Oral, BID, Refills(s) 0 Start Date: 11/01/24 Status: Ordered take 1 capsule by [facility] in the morning, then take 1 capsule [...] Active doxepin hydrochloride 10 mg oral capsule (8 sources) Tricyclic Antidepressant Start: 06-09-20 take 1 capsule by mouth at bedtime doxepin (SINEquan) 10 MG capsule Take 10 mg by mouth at bedtime. 06/09/2023 Active estradiol 1 mg oral tablet (7 sources) Estrogen Start: 11-22-20 End: 12-22-19 take 1 tablet by mouth once daily estradiol (Estrace) 1 MG tablet Indications: H/O: hysterectomy Take 1 tablet (1 mg) by mouth Daily 30 tablet 3 11/22/2024 12/22/2024 Active Start: 10-07-2024 End: 11-22-2024 take 1 tablet by mouth once daily estradiol 0.5 mg Tab = 1 tab(s), Oral, Daily, Refills(s) 0 Start Date: 11/01/24 Status: Ordered fluconazole 150 mg oral tablet (10 sources) Azole Antifungal Start: 04-05-2024 End: 11-26-2024 take 1 tablet by mouth once fluconazole (Diflucan) 150 MG tablet Indications: Yeast infection Take 1 tablet (150 mg) by mouth every 3rd (third) day for 2 doses 2 tablet 11/22/2024 11/26/2024 Active lactobacillus acidophilus [id number] unt / pectin 100 mg oral tablet [...] Status: Ordered meloxicam 15 mg oral tablet (17 sources) Nonsteroidal Anti-inflammatory Drug Start: 06-14-2023 take [...] Ordered metoprolol tartrate 75 mg oral tablet (11 sources) beta-Adrenergic Jeffrey Start: 11-01-2024 take 1 tablet by mouth twice daily metoprolol tartrate 75 mg oral tablet = 1 tab(s), Oral, BID, Refills(s) 0 Start Date: 11/01/24 Status: Ordered Start: 05-17-2023 take 1 tablet by [facility] in the morning metoprolol tartrate (Lopressor) 50 [...] omeprazole 40 mg delayed release oral capsule (18 sources) Proton Pump Inhibitor Start: 2 take 1 capsule by mouth twice daily omeprazole 40 mg Cap-DR 40 mg = 1 cap(s), Oral, BID, Refills(s) 0 Start Date: 10/30/22 Status: Ordered take 1 capsule by [facility] every twenty-four hours Omeprazole 40 MG 1 cap(s) p.o. Once a da y Active peg 3350-sod sulf,nzte-ond-hdr 178.7-7.3-0.5 gram recon soln (1 source) Start: 10-13-2024 End: 10-14-2024 peg 3350-sod sulf,djoh-jke-isp 178.7-7.3-0.5 gram recon soln Indications: Positive fecal occult blood test Take 1 kit by mouth once daily for 1 dose. Please see instructional sheet given by physicians office. 1 each 10/13/2024 10/14/2024 Active phentermine hydrochloride 37.5 mg oral tablet (8 sources) Sympathomimetic Amine Anorectic Start: 06-13-2023 take [...] the skin every 7 days. mondays Active 120 actuat testosterone 10 mg/actuat topical gel (2 sources) Androgen Start: 10-19-2024 testosterone (Fortesta) 10 MG/ACT (2%) gel gel 1 pump to skin in the morning to the thighs Transdermal QOD for 30 days 10/19/2024 Active tiZANidine 4 mg oral capsule (11 sources) Central alpha-2 Adrenergic Agonist Start: 11-01-2024 [...] (except hemorrhage) (2 sources) H/O: gastric ulcer 10-30-2022 Episodic Gastrointestinal hemorrhage (2 sources) Rectal hemorrhage; 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: [Hemorrhage of anus and rectum] Onset: 4 10-13-2024 Episodic Menstrual disorders (3 sources) Dysmenorrhea, unspecified; 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: [DYSMENORRHEA UNSPECIFIED] Onset: 2 Chronic Mycoses (2 sources) Mycosis; 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: [Candidiasis, unspecified] 11-22-2024 Episodic Osteoarthritis (3 sources) Primary osteoarthritis, left hand; 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: [Primary osteoarthritis, right hand] Onset: 2 11-01-2024 Chronic Other aftercare (1 source) 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 Coker blood thinners- 325 daily [...] wisdom to (more content not included)... Normal [facility] Comment on above: Result Comment: Elec tronically Signed By: Delaney BURK, Vinayak Jimenez\.br\Date and Time Signed: 11/01/24 14:36 EST H PYLORI SCREENon 10-27-2024 H. pylori Org specific cx Ql (Sara fld) Negative Normal NEG [facility] Comment on above: Performed By: #### 4 [id number] #### [facility] ([id number]) [address] [place] [address], [address] [place] [address] Surgical Pathologyon 024 Surgical Pathology Normal [facility] Comment on above: Result Comment: [facility] [address] [place] [address] Surgical Pathology Consultation ADDENDUM [place] Patient Name:HORACIO KEATING:1975 (Age: 49)Gender:FTaken:4Reported:4Physician(s):Zaheer Coker MD ([phone])Copy To: Rec. #:[id number]: #[id number] Final Pathologic Diagnosis 1. Antrum biopsy: Mild chronic inactive antral gastritis. No intestinal metaplasia or dysplasia. Immunohistochemistry for Helicobacter pylori organisms is pending; addendum to follow. 2. Appendiceal orifice (mild erythema) biopsy: Rare isolated superficial acute cryptitis noted in otherwise unremarkable colonic mucosal fragments with intact crypt architecture. See comment. No evidence of microscopic colitis, chronic inflammatory bowel disease, granuloma or dysplasia. Comment: In part 2, these findings are nonspecific. This most likely represents bowel preparation artifact. However the differential diagnosis would also include acute self-limited colitis/infectious colitis and drug associated colitis. Correlation with the clinical, endoscopic and other data is suggested. Report Electronically Signed Out gisel/11/05/2024Smith Clark MD Addendum ([facility]) Date Reported: 11/09/2024 In specimen part 1, immunohistochemistry (with appropriate controls) for Helicobacter pylori organisms is NEGATIVE. Electronically Signed Out Smith Clark MD Interpretation performed at [employer] [employer], [address] [place] [address], License number: [id number]. Clinical History Positive fecal occult blood Gross Description 1. Received in formalin labeled KEATING, antrum are two pink-julian soft tissue bits, 0.1 and 0.3 cm in greatest dimension. The specimens are filtered and submitted entirely in a single cassette. (1, ns, [id number], m8) YEISON 2. Received in formalin labeled KEATING, appendiceal are three pink-julian soft tissue bits and strips, 0.3, 0.3, and 0.6 cm in greatest dimension. The specimens are filtered and submitted entirely in a single cassette. (1, ns, [id number], m8) YEISON vaz/10/29/2024GR Specimen(s) Received 1: Antrum biopsy 2: Appendiceal orifice Fee Codes(s): 1; 20033, 89933 2; 98430 Basic Metabolic Panelon 09-3 0-2023 GFR/1.73 sq M.predicted MDRD (S/P/Bld) [Vol rate/Area] mL/min/{1.73_m2} Normal [facility] Comment on above: Performed By: #### L IPID, BMP #### [facility] [address] [place] [address] [place] Calcium [Mass/volume] in Ser um or PlasmaOrdered By: Dedrick Fuller on 08-30-2024 Calcium [Mass/Vol] 9.9 mg/dL Normal 8.6-10.3 [facility] Comment on above: Performed By: #### L IPID, BMP #### [facility] [address] [place] [address] [place] Carbon dioxide, total [Moles /volume] in Serum or PlasmaOrdered By: Dedrick Fuller on 08-30-2024 CO2 [Moles/Vol] 26.6 mmol/L Normal 21.0-31.0 [facility] Comment on above: Performed By: #### L IPID, BMP #### [facility] [address] [place] [address] [place] Chloride [Moles/volume] in S altagracia or PlasmaOrdered By: Dedrick Fuller on 08-30-2024 Chloride [Moles/Vol] 104 mmol/L Normal 98-107 [facility] Comment on above: Performed By: #### L IPID, BMP #### [facility] [address] [place] [address] [place] Cholesterol [Mass/volume] in Serum or PlasmaOrdered By: Dedrick Fuller on 08-30-2024 Cholesterol [Mass/Vol] 218 mg/dL High 140-200 [facility] Comment on above: Chol less than 200 m g/dl low riskChol 201-239 mg/dl borderline riskChol 240 mg/dl and greater high risk Result Comment: Chol less than 200 mg/dl low risk Chol 201-239 mg/dl borderline risk Chol 240 mg/dl and greater high risk Performed By: #### L IPID, BMP #### [place] [address] [place] Cholesterol in LDL Calc [Mas s/Vol]Ordered By: Dedrick Fuller on 08-30-2024 Cholesterol in LDL [Mass/Vol] 134 mg/dL High 0-100 [facility] Comment on above: LDL ATP III CLASSIFI CATIONLDL less than 100 mg/dL OptimalLDL 100-129 mg/dL Near or above optimalLDL 130-159 mg/dL Borderline highLDL 160-189 mg/dL HighLDL greater than 189 mg/dL Very high Cholesterol in VLDL Calc [Ma ss/Vol]Ordered By: Dedrick Fuller on 08-30-2024 Cholesterol in VLDL [Mass/Vol] 46 mg/dL [facility] Creatinine [Mass/volume] in Serum or PlasmaOrdered By: Dedrick Fuller on 08-30-2024 Creatinine [Mass/Vol] 0.75 mg/dL Normal 0.60-1.20 [facility] Comment on above: Performed By: #### L IPID, BMP #### [facility] [address] Glucose [Mass/volume] in Ser um or PlasmaOrdered By: Dedrick Fuller on 08-30-2024 Glucose [Mass/Vol] 95 mg/dL Normal 70-100 [facility] Comment on above: ADA recommended refe rence rangeRandom Glucose Reference Range is dependent on time and content of last meal. Glucose of more than 200 mg/dL in a nonstressed, ambulatory subject supports the diagnosis of Diabetes Mellitus. Result Comment: [place] om Glucose Reference Range is dependent on time and content of last meal. Glucose of more than 200 mg/dL in a nonstressed, ambulatory subject supports the diagnosis of Diabetes Mellitus. ADA recommended reference range Performed By: #### L IPID, BMP #### [facility] [address] [place] [id number] [place] Lipid Panelon 08-30-2024 LDL Cholesterol,Calculated 134 mg/dL High 0-100 [facility] Comment on above: Result Comment: LDL ATP III CLASSIFICATION LDL less than 100 mg/dL Optimal LDL 100-129 mg/dL Near or above optimal LDL 130-159 mg/dL Borderline high LDL 160-189 mg/dL High LDL greater than 189 mg/dL Very high Performed By: #### L IPID, BMP #### [facility] [address] [place] [id number] [place] Triglyceride w/Reflex 231 mg/dL High 0-149 [facility] Comment on above: Result Comment: TRIG ATP III CLASSIFICATION TRIG less than 150 mg/dL Normal TRIG 150-199 mg/dL Borderline high TRIG 200-500 mg/dL High TRIG greater than 500 mg/dL Very high Standard traceable to the Center for Disease Conrtrol and Prevention (CDC) test method. Performed By: #### L IPID, BMP #### [facility] [address] [place] [address] VLDL CHOLESTEROL 46 mg/dL Normal [facility] Comment on above: Performed By: #### L IPID, BMP #### [address] No Panel InformationOrdered By: Dedrick Fuller on 08-30-2024 Estimated GFR (CKD-EPI) > 60.0 mL/Min [facility] Creatinine Clearance (Chem N/A [facility] Potassium [Moles/volume] in Serum or PlasmaOrdered By: Dedrick Fuller on 08-30-2024 Potassium [Moles/Vol] 4.1 mmol/L Normal 3.5-5.1 [facility] Comment on above: Performed By: #### L IPID, BMP #### [address] Serum or plasma anion gap de terminationOrdered By: Dedrick Fuller on 08-30-2024 Anion gap [Moles/Vol] 13.5 mmol/L Normal 6.0-15.0 [facility] Comment on above: Performed By: #### L IPID, BMP #### [facility] [address] [place] [address] Serum or plasma high density lipoprotein (HDL) cholesterol measurementOrdered By: Dedrick Fuller on 08-30-2024 Cholesterol in HDL [Mass/Vol] 38 mg/dL Normal 23-92 [facility] Comment on above: HDL CHOL ATP-III CLA SSIFICATION Cardiovascular RiskHDL > or equal to 60 mg/dL LOWHDL < 40 mg/dL HIGH Result Comment: HDL CHOL ATP-III CLASSIFICATION Cardiovascular Risk HDL > or equal to 60 mg/dL LOW HDL < 40 mg/dL HIGH Performed By: #### L IPID, BMP #### [facility] [address] Serum or plasma total choles terol/high density lipoprotein (HDL) cholesterol mass ratOrdered By: Dedrick Fuller on 08-30-2024 Cholesterol.total/Mirta sterol in HDL [Mass ratio] 5.7 {ratio} Normal <5.0 [facility] Comment on above: Result Comment: PERF ORMED BY: [place] [address] PATHOLOGIST PLACEMENT SECRETARY IRMA MARCELO M.D. Performed By: #### L IPID, BMP #### [address] Sodium [Moles/volume] in Ser um or PlasmaOrdered By: Dedrick Fuller on 08-30-2024 Sodium [Moles/Vol] 140 mmol/L Normal 136-145 [facility] Comment on above: Performed By: #### L IPID, BMP #### [address] Triglyceride [Mass/volume] i n Serum or PlasmaOrdered By: Dedrick Fuller on 08-30-2024 Triglyceride [Mass/Vol] 231 mg/dL High 0-149 [facility] Comment on above: TRIG ATP III CLASSIF ICATIONTRIG less than 150 mg/dL NormalTRIG 150-199 mg/dL Borderline highTRIG 200-500 mg/dL High TRIG greater than 500 mg/dL Very highStandard traceable to the Center for Disease Conrtrol and Prevention (CDC) test method. Urea nitrogen [Mass/volume] in Serum or PlasmaOrdered By: Dedrick Fuller on 08-30-2024 Urea nitrogen [Mass/Vol] 18 mg/dL Normal 7-25 [facility] Comment on above: Performed By: #### L IPID, BMP #### [address] Coding Summaryon 03-19-2024 Coding Summary HTMLBase 64 LbokkzdvSJm5cUx+PGhlYWQ +HF5EFGCrV91poBVpvB4eA6 NMTElOSywgQVBQTElOSyIgb lYxJC8wbXGfGBZg IC8+AA9bVVTdIkcvpBKfh3D 2uEA1K60bcw1vEFjulDB5PQ EvVtRdpomhv7sfjQp3GLwjX mluOyBt XLStkJ62EQI8tP63Fv44mVI vbQVba9jaaDl0KmMkLCHgVW T0fUgzMIgau5EhFTPxA72ga IZkf1I0 OQKcoHcieQNlIyGekOA9iU6 fQTzgzhzkg7cnnryiOfi7yg 54cHWzw5S4hRL0Y5PrbdQ2N GJvbGQg HwplxQSMoF2izhjew0wkyxp qAcTgMVBiEUk8EKx8NCHfkU maZnMzAW66YDG9HLRroeLuN 2FsLWFs cXmqDtU6s2L6Sd7TS5QNHoa yG5TSZVHSFXizuJN+PC90cj 24I9OwZtkjRng0LMVdKDM6f FK6tZ5b JVOsXSybb2J5hAX4F8DycvG mwx1qu8hmQQZbVPtbD37jrX Rtl7U1BDGahBO0YMCquUfkD iBzaG93 Oyc+XBJxrAxvq6RfDpnnn2q mu5dmaNd1UmbySWMnjeJkcA ybALQ4v3GpJx4eTWWhcTU4a QP1xR9p LxRxWaV8RHpjB869FaVibLM oQyjtB57uG5ScqSI+PHRyPj y5PYHhySgxWX6hF8KhMPMfh mctbGVm aRcmTL6aSLVcbiqhBBRwwJ3 iNMPyS3h5CeRgLwK8CXfmZ8 LcFKCsemkmJb50cG1vVoMuQ vS2DXqf R5PvweG6COThgXAfDEdlFPZ 6R52ow9G5BGAjNNAjXSV6tS S8kT5yyEqcjizorOAmrGwxt mVydGlj EIamFShsK374ARBljGmjImU vZGluZyBEYXRlOiAgMDQvMT kvMjAyNDwvdGQ+KREhWGM8c WxlPSAn gPOvUOblHx4meXzwoNrzGC8 eKSFjliriMJPbzC3vQRDkjA WvyQolWH0oCKCistmtn336L iAxMHB0 VHCxyGWzC1PzmX9uNdWaWGT mHLAaL3YbqOOtSRulS014QG opLrP4QVCebrPaS6FsNPZtk WduOiB0 g3P5Ju3Cp0XulbyuT1PlfQQ yTdLlUoqhRRl2P3TiDagikN I+LG32HRRrLF03WUl8CCP4y WxlPSdi EFEyJ0KugE1jHyWlMYIaNMB kOyc+PHRhYmxlIHdpZHRoPS egJLVhAbFdfYrxMR1eVg7dH GVyLWNv oBjzzLKkEuZbx6dqAVWvYCd rMW0odAodR7FllAL0HWXfj2 u1Vp42C06oC4SzyTB+PGNvb IC9fMP4 pV0wAfNzXdY9PDjhG012LjQ daQNcWqtwg5zek6yjpKs7Ru Q9ECUvxhAxcSviWNG0b9XiL i16E11p IHdpZHRoPSIxNSUiIHZhbGl gge5twZ8oBy2+OCIazMJ3gN G7qL0xRyYdLuN3SWzgV833X nRvcCIv Qglfv5znp2coiPh0DyXlHUY xjkIzoQewAFG4i9BgEz76H3 LfiKble2DxAfi0ix85qYTnj 5O6zBP9 V9XhHMKgqgyaaWTqvPcjTW3 fDLBqfeldYDJxuA4lDQMxB3 p3OvItLsZ7YYasS2HqalB3L GJvbGQg HNDbpIMJcC6atkavr8vhxrg pJdSzZNPrFGd9UXq1DWGfnE jeFuLgVIC7UtA2YFE7vGMyj N1fwVll uhqwsH6pRzv+XNZ4lHBkzLL BFR2sVdcudMW+XGIuSDT7sZ daSYspGPJuxN3wINInE5a8O iAwLjA1 CIegG8DrbkZ7YSHecFCuFDN riDXBpR4idsvge8spjsaxLw JmBPMuPXg7RSn1DKPspQfuO iBsZWZ0 AxW9OSE7lTAqgB3qfAlyjbf coT3tSvn+ScbiaVlwOCP0SV r3S1GeQaa1VAFtpRzrEA8rk GFkZGlu Ym9igNoevPeeWK4uAWTydcm ga768RmFlc6okMNMauPYfDP brRFQ6Z88hd0U1MRJtQCYhO RX5aQZ3 rH1qeMenbvxygOTcgXcumzN tzPjfDYlxXZwnL653DRNoiF ejNqQxXIo9S2VdDet4JPXrk QprXS7s qZSpTZksGj0ewVlmqWdcEF5 gDERkievfz794TbFtq0xqRM PpcVLmPCtyLFO8K52tt8R4A CMwMDAw ZFH0rRO2dY0mxTrwfspqeJB mdDsgdmVydGljYWwtYWxpZ2 24WRDkrWxdCiPwdKz1H5CuR jc5CFGa fTjfBJ5lhXMjGSxiRv4ceTt wvSbqVL2xAIZgicbab103Za Ubq8kzTMJfaLQdGQuiIWU2H 39xh6W5 XDMhGQQhHPB2cXX2cT4imLa nbjogbGVmdDsgdmVydGljYW gcDWdaG882CUTyeBmgYeJxp GllbnQg EDqiVPv1A2SvEhmqtWZ+PC9 7WVNnSN73aZAmcDDud3dkzT p0StBtELBhHHL0rCryYMjxy 3JkZXIt W50cxVMrt1M1KMAetXyyrSX gDxOvzKU0pV9yHNoetanpc6 qlrabjShepj7tson93wN71G 29sIHdp ZHRoPSIzMCUiIHZhbGlnbj0 axT0hRs8+JGYhqWO1oUD5sR 0rXENiLwG7NYvhL405BqBhc CIvPjxj v3buj1zhaAt5QbJ0KSRcxtU zdFmsHNH4a5QdOk36O76sZW dpZHRoPSIyMCUiIHZhbGlnb r8ljM2g Ii8+YGOpkGH2cLP0zK7eWyK hXkJ7FMupE801IxPmrQNvQf hmZ17kM0DkaSW+KZUbVsl0V CBzdHls GO2urHVkCDrqZm4rLDU2QyP eOhFnVTbwS3PtGOUnrlgsvb mioVQ3APGjVNVvxM34Kg4dp DogMTBw vRDBpL5oebgof6cxgyxgCdS lBPPhVVm8ESh2JBTraHirZv HjEDO9VpY1WLI2dIWaoN1va Glnbjog fE1iT1NrJHAepoluCv90xC1 xYvDrGxC6TQcnLji+Q09PTE TPCXVWAVWCIC7XCT1LK49NI TwvdGQ+ IPLgWUC6sLbdYKyqOQMmeM5 yHAGpR1o1JiJeZrU1HGxeY9 KtCLGbbbvsQr42xT2vSwVhD tK0TNtq H3HkhrC9CPWppQTmCPogOHQ 2K93cm5M6XTTwWTDkEWP1eW L2oS8hkYlailutjGOhaFamz mVydGlj NMhfQKkjQ018UFUioJquYjP 2KvQ0MtE6QvE5F2KcYvp0PS JpwNyxZZ4edVHiEQwuDw0nr WdodDog WS8hWBYtmflxGRAtpX7mFIK hmHOunGueVI8dJSWbffmcr0 33DnWxXOT2KNAbiCIvS2Ixt H5xTdJl NHCtJCFxK5UvjVArULtqE27 0UPkvZqY9GDZipaSzI8MqVB NqjAfjAwX3e1B8Zl60JgZLD WFyczwv dGQ+OPAoJKQ0lZvbRDbuNLV nrO4uAZNkB0h1CiMfJpU5KJ etX3ShTTMrrayaOi90hV9qU iAwLjA1 QEetQ1QudyI2BYBntGAnUBk nWTM0W65zh8Y6HDRpHSCtEI N2rDP5kN8jnXtrudhntXDzy DsgdmVy sVydWSbdQUyrX302TMQizCo nPkZFTUFMRTwvdGQ+PHRkIH B4vAmdLKuvYMDuwQ1aBNXaN 6i1FkPd VtE1GPqfR9RjFORjmehfHr0 5tV2fYxFxBcU9VItaW7Fnqd F0ALIkuRUlBYrxLTW4O15mk 2O7DYKl ZBCnSOO7bZJ7pW5apKwzzrk gbGVmdDsgdmVydGljYWwtYW cjR625AUBmeMqiMkWrYXFuL S1etWvr dGQ+QB15qg51B3UaAomkZnq 9RRCzISD8hME9yD3qJMHmXO oqq3N7zGN3Y0XhwyXwzg3yv 2xsYXBz ZGygJ29apBKux3A0WRLnmLO 8BZPovJteHhHglO44Mbv+PG AsiCpdk6ReSeptx0ggi3tkd Om8DiOm HGWtokQmqUotZVH9i0DtXh3 4F84oJMcoOXMzRUThHPHjGC AjbFsoiu0vnI9dXf9+PGNvb PJ8lVB3 xU5oLeGtGeT4BBzwF630IoA nvBSrNxxwr8yld4bljFf2Na LqWROxyjAzbHneDCA4g5FaF o60R6Qp wGfuu8DcUxj4cu56oMVib1W 9vIA2Q0PwTJVxdtqzhNZjpH gpXH9bLRWmpefuLUHnyK9bP ZDqT8j1 JrZhNzP8KPaqJ5BkstC8YAS pgGSgUQMfcKFZfQ4mnkrnp2 mrvjoxUyPjNMEoNZj6LTe6W WFsaWdu UqBfZYH1JnX7KWR8tRMhqU7 gzUqbndyrhN6mSns+UGh5c2 vorENgVL6bkNO7XI15EN21e UYtu0D3 rKM0R0GjPXFxfbfvwfvwnFA 2JXOcAVWopY56Bo6axYfwZt 9qIJQsYOV3BOYfaJZmX0Vxh L9vGeId XYKkWQPiC2NqwFGfXRudR07 6QDlkMdE4TNHwccAlX3BwCR UdcBvcGlP5d1O2Xt9BGX42B O15DG01 hKRes5P9fXZ3Q9TpWKKvpin dgfhljRO1UDGfMZRjyW67Kp 9emDasEe3jIUUbELK3NLZzs ONnT5Nm pL9lFyYbUVPjUYQsH7AzrIK pHBymF955XUeqHbS9XTGzml OwN8WpLTOinXatHvF3z6M4E o4SIp38 KU43QW66sLGxw0N9sMA1O3L vHARqkidzfslcvML2GCZbGN JupH84Un9poZfuMl6uRCHgK RQ1FIAq bMFpK4WqbM2tVrMzUJHbPWQ yO7ZtjZSiWMktX381UAxyMh F5HHXpujIoN8RyZFXjtQofC iL0g2U1 Yd0KPSnvblw0B0ZfEtralBS +KR64IWHtBW89yEMhrVHml6 spxFa2EbErNCZkUVB3uZzwM Edkp8Vz ZXI (more content not included)... Normal [facility] Ambulance Noteon 03-17-2024 Ambulance Note [id number] IFF Normal [facility] C Urineon 03-17-2024 C Urine Urine Culture ordere d as a result of parameters set on specific urine dip and urine microsopic results. >100,000 cfu/ml Lactobacillus species Normal vaginal oleg isolated 10,000 cfu/ml Corynebacterium species (DIPTHEROID) No YOLANDE performed on this organism No pathogens isolated [facility] Comment on above: Performed By: #### 5 [id number], [id number], 8824996 ####[facility] (DEFAULT)[address] [place] [address] .Auto Diff 1on 03-15-2024 Auto [place] % 3 % Normal -[address] [facility] Comment on above: Performed By: #### 5 [id number], 1703628404, 2372100737, 97517962, 8509158774, 1023133, 3559683 #### [facility] (DEFAULT) [address] [place] [address] Baso Abs# 0.1 x10 Normal 0.0-0.[address] [facility] Comment on above: Performed By: #### 5 [id number], 4999204434, 2234352512, 49580864, 2031664038, 0214195, 6864806 #### [facility] (DEFAULT) [address] [place] [address] Basophils/100 WBC (Bld) 0.7 % Normal 0.2-2.[address] [facility] Comment on above: Performed By: #### 5 [id number], 5869614324, 7688664524, 12426590, 1642566394, 4651502, 9111063 #### [facility] (DEFAULT) [address] [place] [address] Eos Abs# 0.1 x10 Normal 0.0-0.[address] [facility] Comment on above: Performed By: #### 5 [id number], 9991962820, 5659047916, 16544045, 8979251371, 1335760, 0124145 #### [facility] (DEFAULT) [address] [place] [address] 30015 Eosinophils/100 WBC (Bld) 0.7 % Low 0.9-4.[address] [facility] Comment on above: Performed By: #### 5 [id number], 5512307259, 3410827250, 50533150, 2478516132, 9062939, 4800609 #### [facility] (DEFAULT) [address] [place] [address] 12529 Lymph Abs# 2.2 x10 Normal 1.3-2.[address] [facility] Comment on above: Performed By: #### 5 392957574, 0851621375, 9302491213, 16378540, 4038092939, 6275851, 2065903 #### [facility] (DEFAULT) [address] [place] [address] 59742 Lymphocytes/100 WBC (Bld) 14 % Normal 14-[address] [facility] Comment on above: Performed By: #### 5 [id number], 4870252342, 6877220181, 09160314, 7511003365, 6751921, 5988017 #### [facility] (DEFAULT) [address] [place] [address] 31140 [place] Abs# 0.5 x10 Normal 0.0-0.[address] [facility] Comment on above: Performed By: #### 5 259106391, 3929704961, 0900857291, 42111135, 2225728477, 8929038, 2855897 #### [facility] (DEFAULT) [address] [place] [address] 73656 Neut Abs# 13.5 x10 High 1.5-9.[address] [facility] Comment on above: Result Comment: Slid e Reviewed Performed By: #### 5 [id number], 9726112015, 2903279291, 49862539, 9124817125, 1021498, 4183934 #### [facility] (DEFAULT) [address] [place] [address] 59114 Neutrophils/100 WBC (Bld) 82 % Normal 44-[address] [facility] Comment on above: Performed By: #### 5 544782897, 8796310458, 8079347338, 81099692, 2859137687, 0070554, 1623045 #### [facility] (DEFAULT) [address] [place] [address] CBC w/ Auto Diffon 4 Erythrocyte distribution width (RBC) [Ratio] 13.3 % Normal 11.5-15.[address] [facility] Comment on above: Performed By: #### 5 611463009, 0152432025, 0694593729, 19358740, 3009110390, 6246754, 9981745 #### [facility] (DEFAULT) [address] [place] [address] 28311 Hematocrit (Bld) [Volume fraction] 45.0 % High 33.7-40.[address] [facility] Comment on above: Performed By: #### 5 [id number], 2250011682, 7332202262, 55522182, 2603523222, 4783088, 3164286 #### [facility] (DEFAULT) [address] [place] [address] 16702 Hemoglobin (Bld) [Mass/Vol] 15.0 g/dL Normal 11.3-15.[address] [facility] Comment on above: Performed By: #### 5 [id number], 4180120758, 6498165826, 91618392, 3884923248, 7810705, 6475281 #### [facility] (DEFAULT) [address] [place] [address] 66695 Man Diff? Auto Invalid Interpretation Code [facility] Comment on above: Performed By: #### 5 138535541, 0812594893, 4484120201, 16633131, 9099867691, 2563860, 7331302 #### [facility] (DEFAULT) [address] [place] [address] 84449 MCH (RBC) [Entitic mass] 32 pg Normal 24-[address] [facility] Comment on above: Performed By: #### 5 134666639, 9009953392, 9747597285, 80103684, 2105576232, 7824806, 7552874 #### [facility] (DEFAULT) [address] [place] [address] 18878 MCHC (RBC) [Mass/Vol] 33 g/dL Normal 26-37 [facility] Comment on above: Performed By: #### 5 [id number], 3945538204, 2011150415, 51626112, 8548638130, 1834549, 8811339 #### [facility] (DEFAULT) [address] [place] [address] MCV (RBC) [Entitic vol] 95 fL Normal 81-[address] [facility] Comment on above: Performed By: #### 5 185854188, 8339436266, 9588748518, 33411141, 7107930338, 2353449, 1293947 #### [facility] (DEFAULT) [address] [place] [address] Platelet 292 x10 Normal 138-[address] [facility] Comment on above: Performed By: #### 5 918266043, 2474513123, 3659280522, 50337656, 4126334075, 6325433, 1586792 #### [facility] (DEFAULT) [address] [place] [address] Platelet mean volume (Bld) [Entitic vol] 8.7 fL Normal 6.3-10.[address] [facility] Comment on above: Performed By: #### 5 269336191, 0292683645, 0300406452, 69477421, 2821922396, 5952826, 0092094 #### [facility] (DEFAULT) [address] [place] [address] RBC 4.74 x10 Normal 3.70-5.[address] [facility] Comment on above: Performed By: #### 5 827397015, 7788428136, 1309784785, 31480000, 0678466948, 7652585, 2416633 #### [facility] (DEFAULT) [address] [place] [address] WBC 16.4 x10 High 3.5-10.[address] [facility] Comment on above: Performed By: #### 5 086503114, 5093336547, 9763046637, 91729977, 7444539544, 9579325, 2601260 #### [facility] (DEFAULT) [address] [place] [address] CMP Standardon 03-15-2024 eGFR Non AA >60 Invalid Interpretation Code [facility] Comment on above: Performed By: #### 5 [id number], 8673039364, 2138223665, 57570902, 9223630303, 9297631, 1369484 #### [facility] (DEFAULT) [address] [place] [address] eGFR AA >60 Invalid Interpretation Code [facility] Comment on above: Performed By: #### 5 751075504, 3668561068, 0437378397, 63873196, 4327925979, 1691226, 2838508 #### [facility] (DEFAULT) [address] [place] [address] Albumin [Mass/Vol] 4.1 g/dL Normal 3.5-5.0 [facility] Comment on above: Performed By: #### 5 [id number], 9181803306, 0486216483, 21592762, 0067873515, 3691114, 1847703 #### [facility] (DEFAULT) [address] [place] [address] Albumin/Globulin [Mass ratio] 1.3 {ratio} Low 1.4-2.[address] [facility] Comment on above: Performed By: #### 5 468933636, 5135239980, 9033611006, 52998910, 5144396336, 1973867, 0931856 #### [facility] (DEFAULT) [address] [place], [place] [address] Alk Phos 39 IU/L Normal 32-[address] [facility] Comment on above: Performed By: #### 5 806132459, 0219393962, 3456321066, 66623414, 1797355694, 1679572, 2670414 #### [facility] (DEFAULT) [address] [place] [address] 09010 ALT [Catalytic activity/Vol] 32.0 U/L Normal 14.0-54.[address] [facility] Comment on above: Performed By: #### 5 986335756, 6825168152, 3656865284, 33313831, 1136885389, 8850376, 1106433 #### [facility] (DEFAULT) [address] [place] [address] 42863 Anion gap [Moles/Vol] 13.0 mmol/L Normal 5.0-19.0 [facility] Comment on above: Performed By: #### 5 135479435, 8303043238, 1106771813, 60763060, 7922800878, 4021886, 0413097 #### [facility] (DEFAULT) [address] [place] [address] 44814 AST [Catalytic activity/Vol] 25 U/L Normal 15-[address] [facility] Comment on above: Performed By: #### 5 835523389, 3989893640, 5233181255, 78589783, 4378031860, 0672397, 4335510 #### [facility] (DEFAULT) [address] [place] [address] 74827 Bili Total 1.4 mg/dL High 0.3-1.[address] [facility] Comment on above: Performed By: #### 5 462554516, 0173667639, 9595604359, 62564073, 9992832293, 8407594, 2662342 #### [facility] (DEFAULT) [address] [place] [address] 20030 Calcium [Mass/Vol] 8.8 mg/dL Low 8.9-10.3 [facility] Comment on above: Performed By: #### 5 441481280, 9958940667, 4690401316, 69465859, 0066443581, 0792772, 9965269 #### [facility] (DEFAULT) [address] [place] [address] 29498 Chloride [Moles/Vol] 105 mmol/L Normal 101-111 [facility] Comment on above: Performed By: #### 5 152417942, 9193467775, 8848605225, 55620201, 1412673534, 0897572, 0212208 #### [facility] (DEFAULT) [address] [place] [address] 37389 CO2 [Moles/Vol] 24 mmol/L Normal 21-[address] [facility] Comment on above: Performed By: #### 5 770400418, 5292629012, 5757865246, 99275224, 5710675115, 6197659, 2311389 #### [facility] (DEFAULT) [address] [place] [address] 03388 Creatinine [Mass/Vol] 0.72 mg/dL Normal 0.60-1.30 [facility] Comment on above: Performed By: #### 5 795973569, 9922619701, 2453298942, 23626093, 8444814341, 0150456, 3880292 #### [facility] (DEFAULT) [address] [place] [address] 55536 Globulin (S) [Mass/Vol] 3.0 g/dL Normal 1.5-4.[address] [facility] Comment on above: Performed By: #### 5 607999390, 1748607094, 5532802074, 34374928, 7370105003, 9581255, 4078588 #### [facility] (DEFAULT) [address] [place] [address] 17807 Glucose [Mass/Vol] 124.0 mg/dL High 74.0-118.0 [facility] Comment on above: Performed By: #### 5 263145695, 9630716301, 8783695780, 84836591, 3281614495, 7513784, 4097544 #### [facility] (DEFAULT) [address] [place] [address] 06253 Osmolality 278 mOsm/L Invalid Interpretation Code [facility] Comment on above: Performed By: #### 5 [id number], 7761996321, 7364967296, 43337478, 5392517102, 8972730, 7365862 #### [facility] (DEFAULT) [address] [place] [address] 60030 Potassium [Moles/Vol] 4.0 mmol/L Normal 3.6-5.1 [facility] Comment on above: Performed By: #### 5 046259493, 5857360837, 3900488051, 05676869, 4134265708, 0292933, 1829151 #### [facility] (DEFAULT) [address] [place] [address] 89200 Protein [Mass/Vol] 7.1 g/dL Normal 6.5-8.1 [facility] Comment on above: Performed By: #### 5 224572715, 3642361278, 9506791622, 18998836, 7574008731, 0459831, 5468883 #### [facility] (DEFAULT) [address] [place] [address] 13500 Sodium [Moles/Vol] 138.0 mmol/L Normal 136.0-144.0 [facility] Comment on above: Performed By: #### 5 [id number], 2623392517, 1933007658, 84637269, 4415900685, 3130013, 4020323 #### [facility] (DEFAULT) [address] [place] [address] 69683 Urea nitrogen [Mass/Vol] 15 mg/dL Normal 8-[address] [facility] Comment on above: Performed By: #### 5 215477961, 1957573868, 6902139943, 88686561, 5262083810, 7967980, 0038757 #### [facility] (DEFAULT) [address] [place] [address] 14301 Urea nitrogen/Creatinine [Mass ratio] 20.8 mg/mg High 4.6-16.[address] [facility] Comment on above: Performed By: #### 5 [id number], 6657833145, 6490812306, 16126918, 9702523741, 5990916, 7487247 #### [facility] (DEFAULT) [address] [place] [address] 45796 Breakpoint Chem Normal [facility] Comment on above: Performed By: #### 5 856791622, 3968268717, 9085685862, 45567677, 8009708044, 6448098, 9586206 #### [facility] (DEFAULT) [address] [place] [address] ED Clinical Summaryon 2023 ED Clinical Summary [facility] - Emergency Department [address] [place] [address] ED Clinical Summary PERSON INFORMATION Name: HORACIO KEATING Age: 48 Years Sex: FEMALE : 1975 MRN: Acct#: Visit Reason: Shortness of breath; Anxiety; Blood pressure check; SOB Arrival: 03/15/2024 17:56:51 Discharge: 03/15/2024 20:31:00 LOS: 000 02:35 Check In: 03/15/2024 17:56:51 Checkout:03/15/2024 20:31:00 Address: [address] [place], [place] [id number] PCP: SAMI MCCARTY PROVIDER INFORMATION Provider Role [...] Physical Exa (more content not included)... Normal [facility] ED Note - Physicianon 2023 [...] lymphadenopathy. Psychiatric: (more content not included)... Normal [facility] ED Note-Nursingon 03-15-2024 ED Note-Nursing Patient presents to the ER via [facility] for shortness of breath, anxiety. Patient [...] 12 lead was regular in rate Normal [facility] ED Patient Summaryon 024 ED Patient Summary [facility] - Emergency Department [address] [place] [address] PATIENT DISCHARGE INSTRUCTIONS Patient Information Name: HORACIO KEATING Age: 48 Years Date of : 1975 Reason For Visit: Shortness of breath; Anxiety; Blood pressure check; SOB Arrival Time: 03/15/2024 17:56:51 Primary Care Physician: SAMI MCCARTY Attending Physician: Nicola Neff DO Comment: Visit Diagnosis: Diagnoses This Visit Anxiety ([id number]) Blood pressure check ([id number]) Hypertension (I10) Panic attack (F41.0) Shortness of breath ([id number]) Urinary tract infection (N39.0) The Pharmacy at [facility] is open Friday through Friday from [...] alcohol and/or drug addiction problems; contact the [facility] 23/06 Crisis Hotline -Text 4HOPE to 162002. If you received any narcotics, sedation, or [...] legal documents With: Address: When: SAMI MCCARTY [address] [place] [address] [place] [phone] Business (1) Within 3 to 5 days Comments: Call for follow up appointment Return if symptoms worsen Medication Information: The exam and treatment you received today in the [facility] Emergency Department were for an urgent problem and are not intended as complete care. It is important for you to follow up with a doctor, nurse practitioner, or physician?s catering administrative assistant for ongoing care. If your symptoms [...] can reach you if necessary. [facility] Emergency Department has provided you with a complete list of medications post discharge. Please inform your motorcycle mechanic/provider of your visit and for further [...] (more content not included)... Normal [facility] Extra Greenon 03-15-2024 Tube Collected Yes Invalid Interpretation Code [facility] Comment on above: Performed By: #### 5 [id number], 2003403230, 9094499328, 08901149, 8092547414, 4434028, 0202439 #### [facility] (DEFAULT) [address] [place] [address] 21964 Extra Redon 03-15-2024 Tube Collected Yes Invalid Interpretation Code [facility] Comment on above: Performed By: #### 5 [id number], 2470809511, 5909749497, 47020674, 5863987324, 5968708, 9072403 #### [facility] (DEFAULT) [address] [place] [address] 82294 PTon 03-15-2024 INR Coag (PPP) [Relative time] 0.94 {INR} Normal 0.91-1.[address] [facility] Comment on above: Performed By: #### 5 [id number], 5121048389, 1143758329, 19936516, 7665062616, 6840242, 0765630 #### [facility] (DEFAULT) [address] [place] [address] 92625 PT 9.8 second(s) Normal 9.7-11.[address] [facility] Comment on above: Performed By: #### 5 336704602, 1088869340, 3667622204, 38709940, 5385859755, 2666966, 6294979 #### [facility] (DEFAULT) [address] [place] [address] 25593 TnI HSon 03-15-2024 Troponin I High Sensitivity 7.7 pg/mL Normal <=15.[address] [facility] Comment on above: Performed By: #### 5 [id number], 5800842738, 8096674197, 39422701, 7978472827, 6747807, 9064362 #### [facility] (DEFAULT) [address] [place] [address] 22281 UA Nzeyn4ir 03-15-2024 UA Amorph. 1+ [facility] Comment on above: Order Comment: Urina lysis Microscopic order added on by [employer] Expert Rules system. Performed By: #### 5 5799592, 6243058826, 8416644 ####[facility] (DEFAULT)[address] [place] [address] 29431 UA Bacteria 3+ Normal [facility] Comment on above: Order Comment: Urina lysis Microscopic order added on by [employer] Expert Rules system. Performed By: #### 5 8498474, 1952852045, 5730591 ####[facility] (DEFAULT)[address] [place] [address] 49874 UA Mucous 1+ Normal [facility] Comment on above: Order Comment: Urina lysis Microscopic order added on by [employer] Expert Rules system. Performed By: #### 5 7784725, 1383587306, 7592307 ####[facility] (DEFAULT)[address] [place] [address] UA RBC 3-5 [facility] Comment on above: Order Comment: Urina lysis Microscopic order added on by [employer] system. Performed By: #### 5 9614218, 7981515502, 7458546 ####[facility] (DEFAULT)[address] [place] [address] UA Renal Epi Rare [facility] Comment on above: Order Comment: Urina lysis Microscopic order added on by [employer] system. Performed By: #### 5 4165407, 6065956941, 4551056 ####[facility] (DEFAULT)[address] [place] [address] UA Squam Epi Many [facility] Comment on above: Order Comment: Urina lysis Microscopic order added on by [employer] system. Performed By: #### 5 3068300, 0768222699, 4254539 ####[facility] (DEFAULT)[address] [place] [address] UA WBC 3-5 [facility] Comment on above: Order Comment: Urina lysis Microscopic order added on by [employer] system. Performed By: #### 5 3024585, 9394069539, 8802721 ####[facility] (DEFAULT)[address] [place] [address] UA w Culture if Ind Standard on 03-15-2024 Breakpoint UA [facility] Comment on above: Performed By: #### 5 4707384, 0802302621, 8136965 ####[facility] (DEFAULT)[address] [place] [address] Color (U) Yellow [facility] Comment on above: Performed By: #### 5 3509076, 3471416887, 9488364 ####[facility] (DEFAULT)[address] [place] [address] Culture? Indicated Invalid Interpretation Code [facility] Comment on above: Result Comment: Resu lt created by rule GL_MAGR_ADD_UA_CULT Result created by rule GL_MAGR_ADD_UA_CULT Result created by rule GL_MAGR_ADD_UA_CULT1 Result created by rule GL_MAGR_ADD_UA_CULT Performed By: #### 5 [id number], 6052413476, 1259108 ####[facility] (DEFAULT)[address] [place] [address] 61546 Glucose (U) [Mass/Vol] Negative Normal [facility] Comment on above: Performed By: #### 5 8546512, 2980385292, 0391897 ####[facility] (DEFAULT)[address] [place] [address] 89347 Ketones Ql (U) Negative Normal [facility] Comment on above: Performed By: #### 5 9952052, 7100310349, 0955408 ####[facility] (DEFAULT)[address] [place] [address] 98382 Micro? Indicated Invalid Interpretation Code [facility] Comment on above: Result Comment: Resu lt created by rule GL_MAGR_ADD_UA_MICRO Performed By: #### 5 [id number], 7322713014, 8395210 ####[facility] (DEFAULT)[address] [place] [address] 68650 UA Bilirubin Negative Normal [facility] Comment on above: Performed By: #### 5 6515674, 8454811204, 9006410 ####[facility] (DEFAULT)[address] [place] [address] 20215 UA Blood TRACE Abnormal NEGATIVE [facility] Comment on above: Performed By: #### 5 7707752, 4776177838, 5043554 ####[facility] (DEFAULT)[address] [place] [address] 15192 UA Clarity SL CLOUDY Abnormal CLEAR [facility] Comment on above: Performed By: #### 5 4685977, 2792281555, 8525971 ####[facility] (DEFAULT)[address] [place] [address] 19023 UA Leuk Est LARGE Abnormal NEGATIVE [facility] Comment on above: Performed By: #### 5 5514103, 7159219672, 5265062 ####[facility] (DEFAULT)[address] [place] [address] 60951 UA Nitrite Negative Normal NEGATIVE [facility] Comment on above: Performed By: #### 5 2343843, 0416007484, 8565769 ####[facility] (DEFAULT)[address] [place] [address] 84864 UA pH 6.0 Normal 5-[address] [facility] Comment on above: Performed By: #### 5 [id number], 4650927740, 1226206 ####[facility] (DEFAULT)[address] [place] [address] 39684 UA Protein Negative Normal NEGATIVE [facility] Comment on above: Performed By: #### 5 [id number], 0081387431, 8883836 ####[facility] (DEFAULT)[address] [place] [address] 43354 UA Spec Grav 1.015 Normal 1.001-1.[address] [facility] Comment on above: Performed By: #### 5 3032906, 9949855070, 1924922 ####[facility] (DEFAULT)[address] [place] [address] 46838 UA Urobilinogen 0.2 mg/dL Normal 0.2-1.[address] [facility] Comment on above: Performed By: #### 5 1314206, 9112151002, 9826241 ####[facility] (DEFAULT)[address] [place] [address] 66208 Urine Source Clean Catch Normal [facility] Comment on above: Performed By: #### 5 [id number], 2100042271, 4049914 ####[facility] (DEFAULT)[address] [place] [address] 75860 XR Chest 1 View Frontalon XR Chest [...] MD 03/15/24 7:34 pm Technologist: Lizzy BRICEÑO [facility] [facility] Calcium [Mass/volume] in Ser um or PlasmaOrdered By: Dedrick Fuller on 08-15-2023 Calcium [Mass/Vol] 9.1 mg/dL 8.6-10.3 [facility] Carbon dioxide, total [Moles /volume] in Serum or PlasmaOrdered By: Dedrick Fuller on 08-15-2023 CO2 [Moles/Vol] 26.7 mmol/L 21.0-31.0 [facility] Chloride [Moles/volume] in S altagracia or PlasmaOrdered By: Dedrick Fuller on 08-15-2023 Chloride [Moles/Vol] 107 mmol/L 98-107 [facility] Cholesterol [Mass/volume] in Serum or PlasmaOrdered By: Dedrick Fuller on 08-15-2023 Cholesterol [Mass/Vol] 166 mg/dL 140-200 [facility] Comment on above: Chol less than 200 m g/dl low riskChol 201-239 mg/dl borderline riskChol 240 mg/dl and greater high risk Cholesterol in LDL Calc [Mas s/Vol]Ordered By: Dedrick Fuller on 08-15-2023 Cholesterol in LDL [Mass/Vol] 95 mg/dL 0-100 [facility] Comment on above: LDL ATP III CLASSIFI CATIONLDL less than 100 mg/dL OptimalLDL 100-129 mg/dL Near or above optimalLDL 130-159 mg/dL Borderline highLDL 160-189 mg/dL HighLDL greater than 189 mg/dL Very high Cholesterol in VLDL Calc [Ma ss/Vol]Ordered By: Dedrick Fuller on 08-15-2023 Cholesterol in VLDL [Mass/Vol] 32 mg/dL [facility] Creatinine [Mass/volume] in Serum or PlasmaOrdered By: Dedrick Fuller on 08-15-2023 Creatinine [Mass/Vol] 0.77 mg/dL 0.60-1.20 [facility] Glucose [Mass/volume] in Ser um or PlasmaOrdered By: Dedrick Fuller on 08-15-2023 Glucose [Mass/Vol] 97 mg/dL 70-100 [facility] Comment on above: ADA recommended refe rence rangeRandom Glucose Reference Range is dependent on time and content of last meal. Glucose of more than 200 mg/dL in a nonstressed, ambulatory subject supports the diagnosis of Diabetes Mellitus. No Panel InformationOrdered By: Dedrick Fuller on 08-15-2023 Estimated GFR (CKD-EPI) > 60.0 mL/Min [facility] Creatinine Clearance (Chem N/A [facility] Potassium [Moles/volume] in Serum or PlasmaOrdered By: Dedrick Fuller on 08-15-2023 Potassium [Moles/Vol] 4.0 mmol/L 3.5-5.1 [facility] Serum or plasma anion gap de terminationOrdered By: Dedrick Fuller on 08-15-2023 Anion gap [Moles/Vol] 10.3 mmol/L 6.0-15.0 [facility] Serum or plasma high density lipoprotein (HDL) cholesterol measurementOrdered By: Dedrick Fuller on 08-15-2023 Cholesterol in HDL [Mass/Vol] 39 mg/dL 23-92 [facility] Comment on above: HDL CHOL ATP-III CLA SSIFICATION Cardiovascular RiskHDL > or equal to 60 mg/dL LOWHDL < 40 mg/dL HIGH Serum or plasma total choles terol/high density lipoprotein (HDL) cholesterol mass ratOrdered By: Dedrick Fuller on 08-15-2023 Cholesterol.total/Mirta sterol in HDL [Mass ratio] 4.3 {ratio} <5.0 [facility] Sodium [Moles/volume] in Ser um or PlasmaOrdered By: Dedrick Fuller on 08-15-2023 Sodium [Moles/Vol] 140 mmol/L 136-145 [facility] Triglyceride [Mass/volume] i n Serum or PlasmaOrdered By: Dedrick Fuller on 08-15-2023 Triglyceride [Mass/Vol] 162 mg/dL 0-149 [facility] Comment on above: TRIG ATP III CLASSIF ICATIONTRIG less than 150 mg/dL NormalTRIG 150-199 mg/dL Borderline highTRIG 200-500 mg/dL High TRIG greater than 500 mg/dL Very highStandard traceable to the Center for Disease Conrtrol and Prevention (CDC) test method. Urea nitrogen [Mass/volume] in Serum or PlasmaOrdered By: Dedrick Fuller on 08-15-2023 Urea nitrogen [Mass/Vol] 10 mg/dL 06-24 [facility] GTT 2 HRon 11-09-2022 Glucose [Mass/Vol] 107 mg/dL Critically high 74-106 [facility] Comment on above: Performed By: #### U LG, CRP #### [facility] [address] [address] [address] Soo Donnelly Glucose [Mass/Vol] 152 mg/dL Normal [facility] Comment on above: Performed By: #### U LG, CRP #### [facility] [address] [address] [address] Soo Donnelly Glucose [Mass/Vol] 121 mg/dL Normal [facility] Comment on above: Performed By: #### U LG, CRP #### [facility] [address] [address] ABD/PELV W CONon [...] ELENA SAUCEDA Date: 2022-10-01 10:31 Normal [facility] CBC AUTO DIFFon 09-18-2022 BASO # 0.0 103/ul Normal 0.0-0.1 [facility] Comment on above: Performed By: #### A NAD #### [facility] [address] [place] [address] Dr. Soo Donnelly Basophils/100 WBC (Bld) 0.4 % Normal 0.2-2.0 [facility] Comment on above: Performed By: #### A NAD #### [facility] [address] [place] [address] Dr. Soo Donnelly EO # 0.1 103/ul Normal 0.0-0.7 [facility] Comment on above: Performed By: #### A NAD #### [facility] [address] [place] [address] Dr. Soo Donnelly Eosinophils/100 WBC (Bld) 1.8 % Normal 0.9-7.0 [facility] Comment on above: Performed By: #### A NAD #### [facility] [address] [place] [address] Dr. Soo Donnelly Erythrocyte distribution width (RBC) [Ratio] 11.9 % Normal 11.0-15.0 [facility] Comment on above: Performed By: #### A NAD #### [facility] [address] [place] [address] Dr. Soo Donnelly Hematocrit (Bld) [Volume fraction] 43.9 % Normal 36.0-48.0 [facility] Comment on above: Performed By: #### A NAD #### [facility] [address] [place] [address] Dr. Soo Donnelly Hemoglobin (Bld) [Mass/Vol] 14.6 g/dL Normal 12.0-16.0 [facility] Comment on above: Performed By: #### A NAD #### [facility] [address] [place] [address] Dr. Soo Donnelly IG # 0.01 10e3/ul Normal 0.00-0.03 [facility] Comment on above: Performed By: #### A NAD #### [facility] [address] [place] [address] Dr. Soo Donnelly IG % 0.1 % Normal 0.0-0.5 [facility] Comment on above: Performed By: #### A NAD #### [facility] [address] [place] [address] Dr. Soo Donnelly LYMPH # 2.7 103/ul Normal 1.2-3.8 [facility] Comment on above: Performed By: #### A NAD #### [facility] [address] [place] [address] Dr. Soo Donnelly Lymphocytes/100 WBC (Bld) 39.9 % Normal 20.5-60.0 [facility] Comment on above: Performed By: #### A NAD #### [facility] [address] [place] [address] Dr. Soo Donnelly MANUAL DIFF REQ NO Normal [facility] Comment on above: Performed By: #### A NAD #### [facility] [address] [place] [address] Dr. Soo Donnelly MCH (RBC) [Entitic mass] 31.7 pg Normal 26.7-34.0 [facility] Comment on above: Performed By: #### A NAD #### [facility] [address] [place] [address] Dr. Soo Donnelly MCHC (RBC) [Mass/Vol] 33.3 g/dL Normal 29.9-35.2 [facility] Comment on above: Performed By: #### A NAD #### [facility] [address] [place] [address] Dr. Soo Donnelly MCV (RBC) [Entitic vol] 95.4 fL Normal 81.0-99.0 [facility] Comment on above: Performed By: #### A NAD #### [facility] [address] [place] [address] Dr. Soo Donnelly MONO # 0.4 103/ul Normal 0.3-0.8 [facility] Comment on above: Performed By: #### A NAD #### [facility] [address] [place] [address] Dr. Soo Donnelly Monocytes/100 WBC (Bld) 5.9 % Normal 1.7-12.0 [facility] Comment on above: Performed By: #### A NAD #### [facility] [address] [place] [address] Dr. Soo Donnelly NEUT # 3.5 103/ul Normal 1.4-6.5 [facility] Comment on above: Performed By: #### A NAD #### [facility] [address] [place] [address] Dr. Soo Donnelly Neutrophils/100 WBC (Bld) 51.9 % Normal 43.0-75.0 [facility] Comment on above: Performed By: #### A NAD #### [facility] [address] [place] [address] Dr. Soo Donnelly Platelet mean volume (Bld) [Entitic vol] 10.8 fL Normal 9.5-13.5 [facility] Comment on above: Performed By: #### A NAD #### [facility] [address] [place] [address] Dr. Soo Donnelly PLT 220 103/ul Normal 150-450 [facility] Comment on above: Performed By: #### A NAD #### [facility] [address] [place] [address] Dr. Soo Donnelly RBC 4.60 106/ul Normal 4.20-5.40 [facility] Comment on above: Performed By: #### A NAD #### [facility] [address] [place] [address] Dr. Soo Donnelly WBC 6.8 103/ul Normal 4.0-11.0 [facility] Comment on above: Performed By: #### A NAD #### [facility] [address] [address] [address] Soo CORLEY URINE PROFILEon 2 Bilirubin Ql (U) Negative Normal NEGATIVE [facility] Comment on above: Performed By: #### U LG, CRP #### [facility] [address] [place] [address] Dr. Soo Donnelly Clarity (U) CLEAR Normal CLEAR [facility] Comment on above: Performed By: #### U GL, CRP #### [facility] [address] [place] [address] Dr. Soo Donnelly Color (U) LT. YELLOW Normal YELLOW [facility] Comment on above: Performed By: #### U LG, CRP #### [facility] [address] [place] [address] Dr. Soo CORTEZ A micrscopic examination will be performed if indicated. Normal [facility] Comment on above: Performed By: #### U LG, CRP #### [facility] [address] [place] [address] Dr. Soo Donnelly Glucose Ql (U) Negative Normal NEGATIVE [facility] Comment on above: Performed By: #### U LG, CRP #### [facility] [address] [place] [address] Dr. Soo Donnelly Hemoglobin Ql (U) Negative Normal NEGATIVE [facility] Comment on above: Performed By: #### U LG, CRP #### [facility] [address] [address] [address] Soo Donnelly Ketones Ql (U) Negative Normal NEGATIVE [facility] Comment on above: Performed By: #### U LG, CRP #### [facility] [address] [place] [address] Dr. Soo Donnelly LEUKOCYTES Negative Normal NEGATIVE [facility] Comment on above: Performed By: #### U LG, CRP #### [facility] [address] [place] [address] Dr. Soo Donnelly Nitrite Ql (U) Negative Normal NEGATIVE [facility] Comment on above: Performed By: #### U LG, CRP #### [facility] [address] [address] [address] Soo Donnelly pH (U) 6.0 [pH] Normal 5-9 [facility] Comment on above: Performed By: #### U LG, CRP #### [facility] [address] [place] [address] Dr. Soo Donnelly SPEC GRAVITY 1.015 Normal 1.005-<=1.0 25 [facility] Comment on above: Performed By: #### U LG, CRP #### [facility] [address] [place] [address] Dr. Soo Donnelly UA PROTEIN Negative Normal NEGATIVE/ TRACE [facility] Comment on above: Performed By: #### U LG, CRP #### [facility] [address] [place] [address] Dr. Soo Donnelly UR MICRO IND NOT INDICATED Normal [facility] Comment on above: Performed By: #### U LG, CRP #### [facility] [address] [place] [address] Dr. Soo Donnelly Urobilinogen Qn (U) 0.2 {Roma'U}/dL Normal 0.2 - 1. 0 [facility] Comment on above: Performed By: #### U LG, CRP #### [facility] [address] [place] [address] Dr. Soo Donnelly PROF CHEM 8 (BAS METB)on Anion gap [Moles/Vol] 10.2 mmol/L Normal Th [facility] Comment on above: Performed By: #### B MP #### [facility] [address] [place] [address] Dr. Soo Donnelly Calcium [Mass/Vol] 8.7 mg/dL Normal 8.5-10.1 [facility] Comment on above: Performed By: #### B MP #### [facility] [address] [place] [address] Dr. Soo Donnelly Chloride [Moles/Vol] 103 mmol/L Normal 98-107 [facility] Comment on above: Performed By: #### B MP #### [facility] [address] [address] [address] Soo Donnelly CO2 [Moles/Vol] 27.9 mmol/L Normal 21.0-32.0 [facility] Comment on above: Performed By: #### B MP #### [facility] [address] [address] [address] Soo Donnelly Creatinine [Mass/Vol] 0.80 mg/dL Normal 0.55-1.02 [facility] Comment on above: Performed By: #### B MP #### [facility] [address] [address] [address] Soo Donnelly EGFR-AF BELARUSIAN >60 Normal >=60 [facility] Comment on above: Performed By: #### B MP #### [facility] [address] [place] [address] Dr. Soo Donnelly EGFR-NON AF BELARUSIAN >60 Normal >=60 [facility] Comment on above: Performed By: #### B MP #### [facility] [address] [place] [address] Dr. Soo Donnelly Glucose [Mass/Vol] 103 mg/dL Normal 74-106 [facility] Comment on above: Performed By: #### B MP #### [facility] [address] [place] [address] Dr. Soo Donnelly Potassium [Moles/Vol] 4.1 mmol/L Normal 3.5-5.1 [facility] Comment on above: Performed By: #### B MP #### [facility] [address] [place] [address] Dr. Soo Donnelly Sodium [Moles/Vol] 137 mmol/L Normal 136-145 [facility] Comment on above: Performed By: #### B MP #### [facility] [address] [place] [address] Dr. Soo Donnelly Urea nitrogen [Mass/Vol] 11.0 mg/dL Normal 7.0-18.0 [facility] Comment on above: Performed By: #### B MP #### [facility] [address] [place] [address] Dr. Soo Donnelly Urea nitrogen/Creatinine [Mass ratio] 13.8 mg/mg Normal [facility] Comment on above: Performed By: #### B #### [facility] [address] [place], [place] [address] Dr. Soo Donnelly XR KUB 1 VIEWon [...] ELENA SAUCEDA Date: 2022-09-18 12:12 Normal [facility] MAMM SCREEN 3D DEAN CADon 09-12-2022 MG MAMM SCREEN 3D DEAN CAD Patient: HORACIO KEATING Exam Date: 09/12/2022 : 1975 Gender:F Ordering : DR DELGADO MURILLO . Admission #: [id number] Family : Order #: [id number] CLICK HERE TO VIEW EXAM RADIOLOGY REPORT [...] ovarian cancer at age 77. LOCATION: [facility] BREAST COMPOSITION: Scattered areas fibroglandular [...] MD on 09/13/2022 at 07:46 Normal [facility] INSULINon 07-20-2022 Insulin 25.5 uIU/mL Critically high 2.6-24.9 [facility] Comment on above: Performed By: #### U LG, CRP #### [facility] [address] [place] [address] Dr. Soo Donnelly T4 LABCORPon 07-20-2022 T4 [Mass/Vol] 7.4 ug/dL Normal 4.5-12.0 [facility] Comment on above: Performed By: #### A NAD #### [facility] [address] [place] [address] Dr. Soo Donnelly CBC W MANUAL DIFFon 07-19-20 ATYPICAL LYMPH # Normal [facility] Comment on above: Performed By: #### B UN, CREA #### [facility] [address] [place] [address] Dr. Soo Donnelly ATYPICAL LYMPH % Normal [facility] Comment on above: Performed By: #### B UN, CREA #### [facility] [address] [place] [address] Dr. Soo Donnelly BAND # Normal 0.0-0.3 [facility] Comment on above: Performed By: #### B UN, CREA #### [facility] [address] [place] [address] Dr. Soo Donnelly BAND % Normal 0-5 [facility] Comment on above: Performed By: #### B UN, CREA #### [facility] [address] [place] [address] Dr. Soo Donnelly BASOM # 0.00 103/ul Normal 0.00-0.10 [facility] Comment on above: Performed By: #### B UN, CREA #### [facility] [address] [place] [address] Dr. Soo Donnelly BASOM % 0.0 % Critically low 0.2-2.0 [facility] Comment on above: Performed By: #### B UN, CREA #### [facility] [address] [place] [address] Dr. Soo Donnelly BLAST # Normal [facility] Comment on above: Performed By: #### B UN, CREA #### [facility] [address] [place] [address] Dr. Soo Donnelly BLAST % Normal [facility] Comment on above: Performed By: #### B UN, CREA #### [facility] [address] [place] [address] Dr. Soo Donnelly CORRECTED WBC Normal 4.0-11.0 [facility] Comment on above: Performed By: #### B UN, CREA #### [facility] [address] [place] [address] Dr. Soo Donnelly EOS # 0.31 103/ul Normal 0.00-0.70 [facility] Comment on above: Performed By: #### B UN, CREA #### [facility] [address] [place] [address] Dr. Soo Donnelly EOS% 2.0 % Normal 0.9-7.0 [facility] Comment on above: Performed By: #### B UN, CREA #### [facility] [address] [place] [address] Dr. Soo Donnelly HCT 41.6 % Normal 36.0-48.0 [facility] Comment on above: Performed By: #### B UN, CREA #### [facility] [address] [place] [address] Dr. Soo Donnelly HGB 13.8 g/dl Normal 12.0-16.0 [facility] Comment on above: Performed By: #### B UN, CREA #### [facility] [address] [place] [address] Dr. Soo Donnelly LYMPHM # 5.27 103/ul Critically high 1.20-3.80 [facility] Comment on above: Performed By: #### B UN, CREA #### [facility] [address] [place] [address] Dr. Soo Donnelly LYMPHM% 34.0 % Normal 20.5-60.0 [facility] Comment on above: Performed By: #### B UN, CREA #### [facility] [address] [place] [address] Dr. Soo Donnelly MCH 31.5 pg Normal 26.7-34.0 [facility] Comment on above: Performed By: #### B UN, CREA #### [facility] [address] [place] [address] Dr. Soo Donnelly MCHC 33.2 g/dl Normal 29.9-35.2 [facility] Comment on above: Performed By: #### B UN, CREA #### [facility] [address] [place] [address] Dr. Soo Donnelly MCV 95.0 fL Normal 81.0-99.0 [facility] Comment on above: Performed By: #### B UN, CREA #### [facility] [address] [place] [address] Dr. Soo Donnelly METAMYELOCYTE # Normal [facility] Comment on above: Performed By: #### B UN, CREA #### [facility] [address] [place] [address] Dr. Soo Donnelly METAMYELOCYTE % Normal [facility] Comment on above: Performed By: #### B UN, CREA #### [facility] [address] [place] [address] Dr. Soo Donnelly MONOM# 0.93 103/ul Critically high 0.30-0.80 [facility] Comment on above: Performed By: #### B UN, CREA #### [facility] [address] [place] [address] Dr. Soo Donnelly MONOM% 6.0 % Normal 1.7-12.0 [facility] Comment on above: Performed By: #### B UN, CREA #### [facility] [address] [place] [address] Dr. Soo Donnelly MPV 10.1 fL Normal 9.5-13.5 [facility] Comment on above: Performed By: #### B UN, CREA #### [facility] [address] [place] [address] Dr. Soo Donnelly MYELOCYTE # Normal [facility] Comment on above: Performed By: #### B UN, CREA #### [facility] [address] [place] [address] Dr. Soo Donnelly MYELOCYTE % Normal [facility] Comment on above: Performed By: #### B UN, CREA #### [facility] [address] [place] [address] Dr. Soo Donnelly NRBC Normal [facility] Comment on above: Performed By: #### B UN, CREA #### [facility] [address] [place] [address] Dr. Soo Donnelly PLT 260 103/ul Normal 150-450 [facility] Comment on above: Performed By: #### B UN, CREA #### [facility] [address] [place] [address] Dr. Soo Donnelly RBC 4.38 106/ul Normal 4.20-5.40 [facility] Comment on above: Performed By: #### B UN, CREA #### [facility] [address] [place] [address] Dr. Soo Donnelly RDW 12.5 % Normal 11.0-15.0 [facility] Comment on above: Performed By: #### B UN, CREA #### [facility] [address] [place] [address] Dr. Soo Donnelly SEG # 8.99 103/ul Critically high 1.40-6.50 [facility] Comment on above: Performed By: #### B UN, CREA #### [facility] [address] [place] [address] Dr. Soo Donnelly SEG % 58.0 % Normal 43.0-75.0 [facility] Comment on above: Performed By: #### B UN, CREA #### [facility] [address] [place] [address] Dr. Soo Donnelly WBC 15.5 103/ul Critically high 4.0-11.0 [facility] Comment on above: Performed By: #### B UN, CREA #### [facility] [address] [address] [address] Soo Donnelly FREE T3on 07-19-2022 FREE T3 2.62 pg/mlL Normal 2.18-3.98 [facility] Comment on above: Performed By: #### U LG, CRP #### [facility] [address] [address] [address] Soo Donnelly GLYCOHEMOGLOBIN A1Con 2021 ADA RECOMMENDATION SEE BELOW Normal [facility] Comment on above: Result Comment: ADA RECOMMENDED LIMIT 4.0 - 6.0 ADA THERAPEUTIC TARGET < 7.0 ACTION SUGGESTED > 7.0 Performed By: #### U LG, CRP #### [facility] [address] [place] [address] Dr. Soo Donnelly Glucose [Mass/Vol] 137 mg/dL Normal [facility] Comment on above: Performed By: #### U LG, CRP #### [facility] [address] [place] [address] Dr. Soo Donnelly HbA1c (Bld) [Mass fraction] 6.4 % Critically high 4.5-6.2 [facility] Comment on above: Performed By: #### U LG, CRP #### [facility] [address] [place] [address] Dr. Soo Donnelly LIPID PROFILEon 07-19-2022 CHOL-HDL RATIO NORM SEE BELOW Normal [facility] Comment on above: Result Comment: 3.3 - 4.4 LOW RISK 4.4 - 7.1 AVERAGE RISK 7.1 - 11.0 MODERATE RISK >11.0 HIGH RISK Performed By: #### U LG, CRP #### [facility] [address] [place] [address] Dr. Soo Donnelly Cholesterol [Mass/Vol] 226 mg/dL Critically high <=200 [facility] Comment on above: Performed By: #### U LG, CRP #### [facility] [address] [place] [address] Dr. Soo Donnelly Cholesterol in HDL [Mass/Vol] 33 mg/dL Critically low 40-60 [facility] Comment on above: Performed By: #### U LG, CRP #### [facility] [address] [address] [address] Soo Donnelly Cholesterol in LDL [Mass/Vol] 135.2 mg/dL Normal [facility] Comment on above: Performed By: #### U LG, CRP #### [facility] [address] [address] [address] Soo Donnelly Cholesterol.total/Mirta sterol in HDL [Mass ratio] 6.8 {ratio} Normal [facility] Comment on above: Performed By: #### U LG, CRP #### [facility] [address] [address] [address] Soo Donnelly HDL NORMAL > or = 60 mg/dl - LO W CARDIOVASCULAR RISK <40 mg/dl - HIGH CARDIOVASCULAR RISK Normal [facility] Comment on above: Performed By: #### U LG, CRP #### [facility] [address] [place] [address] Dr. Soo Donnelly LDL CALC NORMAL SEE BELOW Normal [facility] Comment on above: Result Comment: <100 mg/dl OPTIMAL 100 - 129 mg/dl NEAR OR ABOVE OPTIMAL 130 - 159 mg/dl BORDERLINE HIGH 160 - 189 mg/dl HIGH >190 mg/dl VERY HIGH Performed By: #### U LG, CRP #### [facility] [address] [address] [address] Soo Donnelly Triglyceride [Mass/Vol] 289 mg/dL Critically high <=150 [facility] Comment on above: Performed By: #### U LG, CRP #### [facility] [address] [address] [address] Soo Donnelly VLDL CALC 57.8 mg/dL Normal [facility] Comment on above: Performed By: #### U LG, CRP #### [facility] [address] [address] [address] Soo Donnelly PROF 14(COMP METB)on 022 Albumin [Mass/Vol] 3.2 g/dL Critically low 3.4-5.0 [facility] Comment on above: Performed By: #### U LG, CRP #### [facility] [address] [address] [address] Soo Donnelly Albumin/Globulin [Mass ratio] 1.1 {ratio} Normal [facility] Comment on above: Performed By: #### U LG, CRP #### [facility] [address] [address] [address] Soo Donnelly ALP [Catalytic activity/Vol] 41 U/L Critically low 46-116 [facility] Comment on above: Performed By: #### U LG, CRP #### [facility] [address] [address] [address] Soo Donnelly ALT [Catalytic activity/Vol] 46 U/L Normal 14-59 [facility] Comment on above: Performed By: #### U LG, CRP #### [facility] [address] [place] [address] Dr. Soo Donnelly Anion gap [Moles/Vol] 9.3 mmol/L Normal [facility] Comment on above: Performed By: #### U LG, CRP #### [facility] [address] [address] [address] Soo Donnelly AST [Catalytic activity/Vol] 18 U/L Normal 15-37 [facility] Comment on above: Performed By: #### U LG, CRP #### [facility] [address] [address] [address] Soo Donnelly Bilirubin [Mass/Vol] 0.7 mg/dL Normal 0.2-1.0 [facility] Comment on above: Performed By: #### U LG, CRP #### [facility] [address] [address] [address] Soo Donnelly Calcium [Mass/Vol] 8.1 mg/dL Critically low 8.5-10.1 Th [facility] Comment on above: Performed By: #### U LG, CRP #### [facility] [address] [place] [address] Dr. Soo Donnelly Chloride [Moles/Vol] 101 mmol/L Normal 98-107 [facility] Comment on above: Performed By: #### U LG, CRP #### [facility] [address] [place] [address] Dr. Soo Donnelly CO2 [Moles/Vol] 31.1 mmol/L Normal 21.0-32.0 [facility] Comment on above: Performed By: #### U LG, CRP #### [facility] [address] [address] [address] Soo Donnelly Creatinine [Mass/Vol] 0.77 mg/dL Normal 0.55-1.02 [facility] Comment on above: Performed By: #### U LG, CRP #### [facility] [address] [address] [address] Soo Donnelly EGFR-AF BELARUSIAN >60 Normal >=60 [facility] Comment on above: Performed By: #### U LG, CRP #### [facility] [address] [address] [address] Soo Donnelly EGFR-NON AF BELARUSIAN >60 Normal >=60 [facility] Comment on above: Performed By: #### U LG, CRP #### [facility] [address] [address] [address] Soo Donnelly Globulin (S) [Mass/Vol] 3.0 g/dL Normal T [facility] Comment on above: Performed By: #### U LG, CRP #### [facility] [address] [address] [address] Soo Donnelly Glucose [Mass/Vol] 104 mg/dL Normal 74-106 [facility] Comment on above: Performed By: #### U LG, CRP #### [facility] [address] [address] [address] Soo Donnelly Potassium [Moles/Vol] 3.4 mmol/L Critically low 3.5-5.1 [facility] Comment on above: Performed By: #### U LG, CRP #### [facility] [address] [address] [address] Soo Donnelly Protein [Mass/Vol] 6.2 g/dL Critically low 6.4-8.2 [facility] Comment on above: Performed By: #### U LG, CRP #### [facility] [address] [address] [address] Soo Donnelly Sodium [Moles/Vol] 138 mmol/L Normal 136-145 [facility] Comment on above: Performed By: #### U LG, CRP #### [facility] [address] [place] [address] Dr. Soo Donnelly Urea nitrogen [Mass/Vol] 16.0 mg/dL Normal 7.0-18.0 [facility] Comment on above: Performed By: #### U LG, CRP #### [facility] [address] [place] [address] Dr. Soo Donnelly Urea nitrogen/Creatinine [Mass ratio] 20.8 mg/mg Normal [facility] Comment on above: Performed By: #### U LG, CRP #### [facility] [address] [place] [address] Dr. Soo Donnelly TSHon 07-19-2022 TSH 3.262 uIU/mL Normal 0.358-3.740 [facility] Comment on above: Performed By: #### U LG, CRP #### [facility] [address] [place] [address] Dr. Soo Donnelly CBC AUTO DIFFon 05-18-2022 BASO # 0.0 103/ul Normal 0.0-0.1 [facility] Comment on above: Performed By: #### U LG, CRP #### [facility] [address] [place] [address] Dr. Soo Donnelly Basophils/100 WBC (Bld) 0.2 % Normal 0.2-2.0 [facility] Comment on above: Performed By: #### U LG, CRP #### [facility] [address] [place] [address] Dr. Soo Donnelly EO # 0.0 103/ul Normal 0.0-0.7 [facility] Comment on above: Performed By: #### U LG, CRP #### [facility] [address] [place] [address] Dr. Soo Donnelly Eosinophils/100 WBC (Bld) 0.2 % Critically low 0.9-7.0 [facility] Comment on above: Performed By: #### U LG, CRP #### [facility] [address] [place] [address] Dr. Soo Donnelly Erythrocyte distribution width (RBC) [Ratio] 12.8 % Normal 11.0-15.0 [facility] Comment on above: Performed By: #### U LG, CRP #### [facility] [address] [place] [address] Dr. Soo Donnelly Hematocrit (Bld) [Volume fraction] 35.7 % Critically low 36.0-48.0 [facility] Comment on above: Performed By: #### U LG, CRP #### [facility] [address] [place] [address] Dr. Soo Donnelly Hemoglobin (Bld) [Mass/Vol] 11.5 g/dL Critically low 12.0-16.0 [facility] Comment on above: Performed By: #### U LG, CRP #### [facility] [address] [place] [address] Dr. Soo Donnelly IG # 0.07 10e3/ul Critically high 0.00-0.03 [facility] Comment on above: Performed By: #### U LG, CRP #### [facility] [address] [place] [address] Dr. Soo Donnelly IG % 0.5 % Normal 0.0-0.5 [facility] Comment on above: Performed By: #### U LG, CRP #### [facility] [address] [place] [address] Dr. Soo Donnelly LYMPH # 4.1 103/ul Critically high 1.2-3.8 [facility] Comment on above: Performed By: #### U LG, CRP #### [facility] [address] [place] [address] Dr. Soo Donnelly Lymphocytes/100 WBC (Bld) 28.3 % Normal 20.5-60.0 [facility] Comment on above: Performed By: #### U LG, CRP #### [facility] [address] [place] [address] Dr. Soo Donnelly MANUAL DIFF REQ NO Normal [facility] Comment on above: Performed By: #### U LG, CRP #### [facility] [address] [address] [address] Soo Donnelly MCH (RBC) [Entitic mass] 31.7 pg Normal 26.7-34.0 [facility] Comment on above: Performed By: #### U LG, CRP #### [facility] [address] [place] [address] Dr. Soo Donnelly MCHC (RBC) [Mass/Vol] 32.2 g/dL Normal 29.9-35.2 [facility] Comment on above: Performed By: #### U LG, CRP #### [facility] [address] [place] [address] Dr. Soo Donnelly MCV (RBC) [Entitic vol] 98.3 fL Normal 81.0-99.0 [facility] Comment on above: Performed By: #### U LG, CRP #### [facility] [address] [place] [address] Dr. Soo Donnelly MONO # 0.8 103/ul Normal 0.3-0.8 [facility] Comment on above: Performed By: #### U LG, CRP #### [facility] [address] [place] [address] Dr. Soo Donnelly Monocytes/100 WBC (Bld) 5.6 % Normal 1.7-12.0 [facility] Comment on above: Performed By: #### U LG, CRP #### [facility] [address] [place] [address] Dr. Soo Donnelly NEUT # 9.4 103/ul Critically high 1.4-6.5 [facility] Comment on above: Performed By: #### U LG, CRP #### [facility] [address] [place] [address] Dr. Soo Donnelly Neutrophils/100 WBC (Bld) 65.2 % Normal 43.0-75.0 [facility] Comment on above: Performed By: #### U LG, CRP #### [facility] [address] [place] [address] Dr. Soo Donnelly Platelet mean volume (Bld) [Entitic vol] 10.8 fL Normal 9.5-13.5 [facility] Comment on above: Performed By: #### U LG, CRP #### [facility] [address] [place] [address] Dr. Soo Donnelly PLT 191 103/ul Normal 150-450 [facility] Comment on above: Performed By: #### U LG, CRP #### [facility] [address] [place] [address] Dr. Soo Donnelly RBC 3.63 106/ul Critically low 4.20-5.40 [facility] Comment on above: Performed By: #### U LG, CRP #### [facility] [address] [place] [address] Dr. Soo Donnelly WBC 14.4 103/ul Critically high 4.0-11.0 [facility] Comment on above: Performed By: #### U LG, CRP #### [facility] [address] [place] [address] Dr. Soo Donnelly BUNon 05-17-2022 Urea nitrogen [Mass/Vol] 8.0 mg/dL Normal 7.0-18.0 [facility] Comment on above: Performed By: #### B UN, CREA #### [facility] [address] [place] [address] Dr. Soo Donnelly CBC AUTO DIFFon 05-17-2022 BASO # 0.0 103/ul Normal 0.0-0.1 [facility] Comment on above: Performed By: #### U LG, CRP #### [facility] [address] [place] [address] Dr. Soo Donnelly Basophils/100 WBC (Bld) 0.1 % Critically low 0.2-2.0 [facility] Comment on above: Performed By: #### U LG, CRP #### [facility] [address] [place] [address] Dr. Soo Donnelly EO # 0.0 103/ul Normal 0.0-0.7 [facility] Comment on above: Performed By: #### U LG, CRP #### [facility] [address] [place] [address] Dr. Soo Donnelly Eosinophils/100 WBC (Bld) 0.0 % Critically low 0.9-7.0 [facility] Comment on above: Performed By: #### U LG, CRP #### [facility] [address] [place] [address] Dr. Soo Donnelly Erythrocyte distribution width (RBC) [Ratio] 12.5 % Normal 11.0-15.0 [facility] Comment on above: Performed By: #### U LG, CRP #### [facility] [address] [place] [address] Dr. Soo Donnelly Hematocrit (Bld) [Volume fraction] 38.5 % Normal 36.0-48.0 [facility] Comment on above: Performed By: #### U GL, CRP #### [facility] [address] [place] [address] Dr. Soo Donnelly Hemoglobin (Bld) [Mass/Vol] 13.0 g/dL Normal 12.0-16.0 [facility] Comment on above: Performed By: #### U LG, CRP #### [facility] [address] [place] [address] Dr. Soo Donnelly IG # 0.16 10e3/ul Critically high 0.00-0.03 [facility] Comment on above: Performed By: #### U LG, CRP #### [facility] [address] [place] [address] Dr. Soo Donnelly IG % 0.7 % Critically high 0.0-0.5 [facility] Comment on above: Performed By: #### U LG, CRP #### [facility] [address] [place] [address] Dr. Soo Donnelly LYMPH # 3.0 103/ul Normal 1.2-3.8 [facility] Comment on above: Performed By: #### U LG, CRP #### [facility] [address] [place] [address] Dr. Soo Donnelly Lymphocytes/100 WBC (Bld) 12.2 % Critically low 20.5-60.0 [facility] Comment on above: Performed By: #### U LG, CRP #### [facility] [address] [place] [address] Dr. Soo Donnelly MANUAL DIFF REQ NO Normal [facility] Comment on above: Performed By: #### U LG, CRP #### [facility] [address] [place] [address] Dr. Soo Donnelly MCH (RBC) [Entitic mass] 32.4 pg Normal 26.7-34.0 [facility] Comment on above: Performed By: #### U LG, CRP #### [facility] [address] [place] [address] Dr. Soo Donnelly MCHC (RBC) [Mass/Vol] 33.8 g/dL Normal 29.9-35.2 [facility] Comment on above: Performed By: #### U LG, CRP #### [facility] [address] [place] [address] Dr. Soo Donnelly MCV (RBC) [Entitic vol] 96.0 fL Normal 81.0-99.0 [facility] Comment on above: Performed By: #### U LG, CRP #### [facility] [address] [place] [address] Dr. Soo Donnelly MONO # 1.3 103/ul Critically high 0.3-0.8 [facility] Comment on above: Performed By: #### U LG, CRP #### [facility] [address] [place] [address] Dr. Soo Donnelly Monocytes/100 WBC (Bld) 5.4 % Normal 1.7-12.0 [facility] Comment on above: Performed By: #### U LG, CRP #### [facility] [address] [place] [address] Dr. Soo Donnelly NEUT # 19.8 103/ul Critically high 1.4-6.5 [facility] Comment on above: Performed By: #### U LG, CRP #### [facility] [address] [place] [address] Dr. Soo Donnelly Neutrophils/100 WBC (Bld) 81.6 % Critically high 43.0-75.0 [facility] Comment on above: Performed By: #### U LG, CRP #### [facility] [address] [address] [address] Soo Donnelly Platelet mean volume (Bld) [Entitic vol] 10.5 fL Normal 9.5-13.5 [facility] Comment on above: Performed By: #### U LG, CRP #### [facility] [address] [address] [address] Soo Donnelly PLT 253 103/ul Normal 150-450 [facility] Comment on above: Performed By: #### U LG, CRP #### [facility] [address] [address] [address] Soo Donnelly RBC 4.01 106/ul Critically low 4.20-5.40 [facility] Comment on above: Performed By: #### U LG, CRP #### [facility] [address] [place] [address] Dr. Soo Donnelly WBC 24.3 103/ul Critically high 4.0-11.0 [facility] Comment on above: Performed By: #### U LG, CRP #### [facility] [address] [place] [address] Dr. Soo Donnelly BASO # 0.0 103/ul Normal 0.0-0.1 [facility] Comment on above: Performed By: #### U LG, CRP #### [facility] [address] [address] [address] Soo Donnelly Basophils/100 WBC (Bld) 0.1 % Critically low 0.2-2.0 [facility] Comment on above: Performed By: #### U LG, CRP #### [facility] [address] [place] [address] Dr. Soo Donnelly EO # 0.0 103/ul Normal 0.0-0.7 [facility] Comment on above: Performed By: #### U LG, CRP #### [facility] [address] [address] [address] Soo Donnelly Eosinophils/100 WBC (Bld) 0.0 % Critically low 0.9-7.0 [facility] Comment on above: Performed By: #### U LG, CRP #### [facility] [address] [place] [address] Dr. Soo Donnelly Erythrocyte distribution width (RBC) [Ratio] 12.3 % Normal 11.0-15.0 [facility] Comment on above: Performed By: #### U LG, CRP #### [facility] [address] [place] [address] Dr. Soo Donnelly Hematocrit (Bld) [Volume fraction] 41.2 % Normal 36.0-48.0 [facility] Comment on above: Performed By: #### U LG, CRP #### [facility] [address] [place] [address] Dr. Soo Donnelly Hemoglobin (Bld) [Mass/Vol] 13.5 g/dL Normal 12.0-16.0 [facility] Comment on above: Performed By: #### U LG, CRP #### [facility] [address] [place] [address] Dr. oSo Donnelly IG # 0.11 10e3/ul Critically high 0.00-0.03 [facility] Comment on above: Performed By: #### U LG, CRP #### [facility] [address] [place] [address] Dr. Soo Donnelly IG % 0.5 % Normal 0.0-0.5 [facility] Comment on above: Performed By: #### U LG, CRP #### [facility] [address] [place] [address] Dr. Soo Donnelly LYMPH # 1.6 103/ul Normal 1.2-3.8 [facility] Comment on above: Performed By: #### U LG, CRP #### [facility] [address] [place] [address] Dr. Soo Donnelly Lymphocytes/100 WBC (Bld) 7.8 % Critically low 20.5-60.0 [facility] Comment on above: Performed By: #### U LG, CRP #### [facility] [address] [place] [address] Dr. Soo Donnelly MANUAL DIFF REQ NO Normal [facility] Comment on above: Performed By: #### U LG, CRP #### [facility] [address] [address] [address] Soo Donnelly MCH (RBC) [Entitic mass] 31.8 pg Normal 26.7-34.0 [facility] Comment on above: Performed By: #### U LG, CRP #### [facility] [address] [place] [address] Dr. Soo Donnelly MCHC (RBC) [Mass/Vol] 32.8 g/dL Normal 29.9-35.2 [facility] Comment on above: Performed By: #### U LG, CRP #### [facility] [address] [place] [address] Dr. Soo Donnelly MCV (RBC) [Entitic vol] 96.9 fL Normal 81.0-99.0 [facility] Comment on above: Performed By: #### U LG, CRP #### [facility] [address] [place] [address] Dr. Soo Donnelly MONO # 0.4 103/ul Normal 0.3-0.8 [facility] Comment on above: Performed By: #### U LG, CRP #### [facility] [address] [place] [address] Dr. Soo Donnelly Monocytes/100 WBC (Bld) 2.0 % Normal 1.7-12.0 [facility] Comment on above: Performed By: #### U LG, CRP #### [facility] [address] [place] [address] Dr. Soo Donnelly NEUT # 18.1 103/ul Critically high 1.4-6.5 [facility] Comment on above: Performed By: #### U LG, CRP #### [facility] [address] [place] [address] Dr. Soo Donnelly Neutrophils/100 WBC (Bld) 89.6 % Critically high 43.0-75.0 [facility] Comment on above: Performed By: #### U LG, CRP #### [facility] [address] [place] [address] Dr. Soo Donnelly Platelet mean volume (Bld) [Entitic vol] 11.0 fL Normal 9.5-13.5 [facility] Comment on above: Performed By: #### U LG, CRP #### [facility] [address] [address] [address] Soo Donnelly PLT 223 103/ul Normal 150-450 [facility] Comment on above: Performed By: #### U LG, CRP #### [facility] [address] [address] [address] Soo Donnelly RBC 4.25 106/ul Normal 4.20-5.40 [facility] Comment on above: Performed By: #### U LG, CRP #### [facility] [address] [address] [address] Soo Donnelly WBC 20.2 103/ul Critically high 4.0-11.0 [facility] Comment on above: Performed By: #### U LG, CRP #### [facility] [address] [place] [address] Dr. Soo Donnelly CREATININEon 05-17-2022 Creatinine [Mass/Vol] 0.97 mg/dL Normal 0.55-1.02 [facility] Comment on above: Performed By: #### B UN, CREA #### [facility] [address] [place] [address] Dr. Soo Donnelly EGFR-AF BELARUSIAN >60 Normal >=60 [facility] Comment on above: Performed By: #### B UN, CREA #### [facility] [address] [place] [address] Dr. Soo Donnelly EGFR-NON AF BELARUSIAN >60 Normal >=60 [facility] Comment on above: Performed By: #### B UN, CREA #### [facility] [address] [place] [address] Dr. Soo Donnelly CTA CHEST WO W CONon 022 CTA CHEST WO W CON EXAMINATION: CTA [facility]IS [facility] WO W CON HISTORY: SHORTNESS OF BREATH [...] SAUCEDA Date: 2022-05-17 16:40 Normal [facility] XR CHEST 2 Von 05-17-2022 XR [...] by: SAMI JONES Date: 2022-05-17 16:10 Normal [facility] CBC AUTO DIFFon 05-16-2022 BASO # 0.1 103/ul Normal 0.0-0.1 [facility] Comment on above: Performed By: #### B JOANNA CREA #### [facility] [address] [address] [address] Soo Donnelly Basophils/100 WBC (Bld) 0.5 % Normal 0.2-2.0 T [facility] Comment on above: Performed By: #### B JOANNA CREA #### [facility] [address] [address] [address] Soo Donnelly EO # 0.1 103/ul Normal 0.0-0.7 [facility] Comment on above: Performed By: #### B UN, CREA #### [facility] [address] [place] [address] Dr. Soo Donnelly Eosinophils/100 WBC (Bld) 1.0 % Normal 0.9-7.0 [facility] Comment on above: Performed By: #### B UN, CREA #### [facility] [address] [place] [address] Dr. Soo Donnelly Erythrocyte distribution width (RBC) [Ratio] 12.2 % Normal 11.0-15.0 [facility] Comment on above: Performed By: #### B UN, CREA #### [facility] [address] [place] [address] Dr. Soo Donnelly Hematocrit (Bld) [Volume fraction] 41.2 % Normal 36.0-48.0 [facility] Comment on above: Performed By: #### B UN, CREA #### [facility] [address] [place] [address] Dr. Soo Donnelly Hemoglobin (Bld) [Mass/Vol] 13.9 g/dL Normal 12.0-16.0 [facility] Comment on above: Performed By: #### B UN, CREA #### [facility] [address] [place] [address] Dr. Soo Donnelly IG # 0.04 10e3/ul Critically high 0.00-0.03 [facility] Comment on above: Performed By: #### B UN, CREA #### [facility] [address] [place] [address] Dr. Soo Donnelly IG % 0.4 % Normal 0.0-0.5 [facility] Comment on above: Performed By: #### B UN, CREA #### [facility] [address] [place] [address] Dr. Soo Donnelly LYMPH # 3.5 103/ul Normal 1.2-3.8 [facility] Comment on above: Performed By: #### B UN, CREA #### [facility] [address] [place] [address] Dr. Soo Donnelly Lymphocytes/100 WBC (Bld) 35.3 % Normal 20.5-60.0 [facility] Comment on above: Performed By: #### B UN, CREA #### [facility] [address] [place] [address] Dr. Soo Donnelly MANUAL DIFF REQ NO Normal [facility] Comment on above: Performed By: #### B UN, CREA #### [facility] [address] [place] [address] Dr. Soo Donnelly MCH (RBC) [Entitic mass] 31.7 pg Normal 26.7-34.0 [facility] Comment on above: Performed By: #### B UN, CREA #### [facility] [address] [place] [address] Dr. Soo Donnelly MCHC (RBC) [Mass/Vol] 33.7 g/dL Normal 29.9-35.2 [facility] Comment on above: Performed By: #### B UN, CREA #### [facility] [address] [place] [address] Dr. Soo Donnelly MCV (RBC) [Entitic vol] 94.1 fL Normal 81.0-99.0 [facility] Comment on above: Performed By: #### B UN, CREA #### [facility] [address] [place] [address] Dr. Soo Donnelly MONO # 0.5 103/ul Normal 0.3-0.8 [facility] Comment on above: Performed By: #### B UN, CREA #### [facility] [address] [place] [address] Dr. Soo Donnelly Monocytes/100 WBC (Bld) 5.4 % Normal 1.7-12.0 [facility] Comment on above: Performed By: #### B UN, CREA #### [facility] [address] [place] [address] Dr. Soo Donnelly NEUT # 5.6 103/ul Normal 1.4-6.5 [facility] Comment on above: Performed By: #### B UN, CREA #### [facility] [address] [place] [address] Dr. Soo Donnelly Neutrophils/100 WBC (Bld) 57.4 % Normal 43.0-75.0 [facility] Comment on above: Performed By: #### B UN, CREA #### [facility] [address] [place] [address] Dr. Soo Donnelly Platelet mean volume (Bld) [Entitic vol] 10.3 fL Normal 9.5-13.5 [facility] Comment on above: Performed By: #### B UN, CREA #### [facility] [address] [place] [address] Dr. Soo Donnelly PLT 235 103/ul Normal 150-450 [facility] Comment on above: Performed By: #### B UN, CREA #### [facility] [address] [place] [address] Dr. Soo Donnelly RBC 4.38 106/ul Normal 4.20-5.40 [facility] Comment on above: Performed By: #### B JOANNA, CREA #### [facility] [address] [place] [address] Dr. Soo Donnelly WBC 9.8 103/ul Normal 4.0-11.0 [facility] Comment on above: Performed By: #### B UN, CREA #### [facility] [address] [place] [address] Dr. Soo Donnelly PREG QUANT HCGon 05-16-2022 HCG QUANT <1 Normal [facility] Comment on above: Performed By: #### U LG, CRP #### [facility] [address] [place] [address] Dr. Soo Donnelly HCG RANGE SEE BELOW Normal [facility] Comment on above: Result Comment: 5-50 0-1 WEEK 40-300 1-2 WEEKS 100-1,000 2-3 WEEKS 500-6,000 3-4 WEEKS 5,000-200,000 1-2 MONTHS 10,000-100,000 2-3 MONTHS 3,000-50,000 2ND TRIMESTER 1,000-50,000 3RD TRIMESTER Performed By: #### U LG, CRP #### [facility] [address] [place] [address] Dr. Soo Donnelly Covid-19 PCR (CVDTBH)on 05-01 SARS-CoV-2 (COVID-19) RNA NOLA+probe Ql (Unsp spec) Not detected Normal NOT DETECTED [facility] Comment on above: Result Comment: This test is not yet approved or cleared by the [place] FDA. When there are no FDA-approved or cleared tests available, and other criteria are met, FDA can make tests available under an emergency access mechanism called an Emergency Use Authorization (EUA). The EUA for this test is supported by the [place] of Health and Human Service's (HHS's) declaration [...] SARS-CoV-2. Performed By: #### C VDTBH #### [facility] [address] [place] [address] Dr. Soo Donnelly TYPE AND SCREENon 05-13-2022 TYPE AND SCREEN Negative Normal [facility] Comment on above: Performed By: #### B UN, CREA #### [facility] [address] [place] [address] Dr. Soo Donnelly PAP ACOG PANEL 2: 30 to 65on 05-07-2022 . . Normal [facility] Comment on above: Result Comment: Perf ormed at: WB Performed By: #### [id number] #### [facility] [address] [place] [address] Dr. Soo Donnelly Age Gdln ACOG Testing 30-65 [facility] Comment on above: Performed By: #### [id number] #### [facility] [address] [place] [address] Dr. Soo Donnelly DIAGNOSIS: Comment [facility] Comment on above: Result Comment: NEGA TIVE FOR INTRAEPITHELIAL LESION OR MALIGNANCY. Performed at: WB Performed By: #### [id number] #### [facility] [address] [place] [address] Dr. Soo Donnelly HPV Aptima Negative Normal Negative [facility] Comment on above: Result Comment: This nucleic acid amplification test detects fourteen high-risk HPV types (16,18,31,33,35,39,45,51,52,56,58,59,66,68) without differentiation. Performed at: =G Performed By: #### [id number] #### [facility] [address] [place] [address] Dr. Soo Donnelly Methodology: Comment Normal [facility] Comment on above: Result Comment: This liquid based ThinPrep(R) pap test was screened with the use of an image guided system. Performed at: WB Performed By: #### [id number] #### [facility] [address] [place] [address] Dr. Soo Donnelly Note: Comment Normal [facility] Comment on above: Result Comment: The Pap smear is a screening test designed to aid in the detection of premalignant and malignant conditions of the uterine cervix. It is not a diagnostic procedure and should not be used as the sole means of detecting cervical cancer. Both false-positive and false-negative reports do occur. . Performed at: WB Performed By: #### [id number] #### [facility] [address] [place] [address] Dr. Soo Donnelly Performed by: Comment Normal [facility] Comment on above: Result Comment: Angel Rod, Track [employer] Repair Supervisor (ASCP) Performed at: WB Performed By: #### [id number] #### [facility] [address] [place] [address] Dr. Soo Donnelly Specimen adequacy: Comment Normal [facility] Comment on above: Result Comment: Sati sfactory for evaluation. Endocervical and/or squamous metaplastic cells (endocervical component) are present. Performed at: WB Performed By: #### [id number] #### [facility] [address] [place] [address] Dr. Soo Donnelly ROSS by IFAon 02-21-2022 Antinuclear Antibodies, IFA Negative Normal [facility] Comment on above: Result Comment: Nega tive <1:80 Borderline 1:80 Positive >1:80 ICAP nomenclature: AC-0 For more information about Hep-2 cell patterns use ANApatterns.org, the official website for the International Consensus on Antinuclear Antibody (ROSS) Patterns (ICAP). Performed By: #### U LG, CRP #### [facility] [address] [place] [address] Dr. Soo Donnelly ROSS DIRECTon 02-20-2022 ROSS Direct Negative Normal Negative [facility] Comment on above: Performed By: #### A NAD #### [facility] [address] [place] [address] Dr. Soo Donnelly ANTISTREPTOLYSIN O AB (ASO)o n 02-20-2022 Antistreptolysin O Ab 115.3 IU/mL Normal 0.0-200.0 [facility] Comment on above: Performed By: #### B UN, CREA #### [facility] [address] [place] [address] Dr. Soo Donnelly C3 and C4 COMPLEMENTon 02-20 Complement C3, Serum 137 mg/dL Normal 82-167 [facility] Comment on above: Performed By: #### U LG, CRP #### [facility] [address] [place] [address] Dr. Soo Donnelly Complement C4, Serum 23 mg/dL Normal 12-38 [facility] Comment on above: Performed By: #### U LG, CRP #### [facility] [address] [place] [address] Dr. Soo Donnelly SLE PROFILE Aon 02-20-2022 Anti-DNA (DS) Ab Qn <1 Normal 0-9 [facility] Comment on above: Result Comment: Nega tive <5 Equivocal 5 - 9 Positive >9 Performed By: #### S YARI #### [facility] [address] [place] [address] Dr. Soo Donnelly Antichromatin Antibodies <0.2 Normal 0.0-0.9 [facility] Comment on above: Performed By: #### S YARI #### [facility] [address] [place] [address] Dr. Soo Donnelly RA Latex Turbid. <10.0 Normal <14.0 [facility] Comment on above: Performed By: #### S YARI #### [facility] [address] [address] [address] Soo Donnelly REINSTATEMENT CLERK Antibodies <0.2 Normal 0.0-0.9 [facility] Comment on above: Performed By: #### S YARI #### [facility] [address] [place] [address] Dr. Soo Donnelly Sjogren's Anti-SS-A <0.2 Normal 0.0-0.9 [facility] Comment on above: Performed By: #### S YARI #### [facility] [address] [place] [address] Dr. Soo Donnelly Sjogrdaniela's Anti-SS-B <0.2 Normal 0.0-0.9 [facility] Comment on above: Performed By: #### S YARI #### [facility] [address] [place] [address] Dr. Soo Donnelly Spann Antibodies <0.2 Normal 0.0-0.9 [facility] Comment on above: Performed By: #### S YARI #### [facility] [address] [place] [address] Dr. Soo Donnelly CRPon 02-19-2022 CRP [Mass/Vol] mg/L Normal <=1.0 [facility] Comment on above: Performed By: #### U LG, CRP #### [facility] [address] [place] [address] Dr. Soo Donnelly URIC ACID SERUMon 02-19-2022 Urate [Mass/Vol] 4.7 mg/dL Normal 2.5-6.2 [facility] Comment on above: Performed By: #### U LG, CRP #### [facility] [address] [place] [address] Dr. Soo Donnelly XR CSPINE MIN 4 VIEWSon 01-30 XR CSPINE MIN 4 VIEWS EXAMINATION: XR TS PINE 3 VIEWS, XR LSPINE MIN 4 VIEWS, [...] ABIGAIL GONSALVES Date: 2022-02-19 16:33 Normal [facility] XR HAND DEAN MIN 3Von [...] ABIGAIL GONSALVES Date: 2022-02-19 16:28 Normal [facility] ASYMPTOMATIC COVID-19 ANTIGE Non 12-04-2021 EUA Statement SEE BELOW Normal [facility] Comment on above: Result Comment: [...] sooner. Performed By: #### C VDAGA #### [facility] [address] [place] [address] Dr. Soo Donnelly SARS-CoV-2 (COVID-19) RNA NOLA+probe Ql (Unsp spec) Negative Normal NEGATIVE [facility] Comment on above: Result Comment: Nega tive results are presumptive. They do not preclude infection and should not be used as the sole basis for treatment decisions. Additional confirmatory testing by a molecular method should be considered. Performed By: #### C VDAGA #### [facility] [address] [place], [place] [address] Dr. Soo Donnelly [facility]on SARS-CoV-2 (COVID-19) RNA NOLA+probe Ql (Unsp spec) Not detected Normal NOT DETECTED [facility] Comment on above: Result Comment: This test is not yet approved or cleared by the [place] FDA. When there are no FDA-approved or cleared tests available, and other criteria are met, FDA can make tests available under an emergency access mechanism called an Emergency Use Authorization (EUA). The EUA for this test is supported by the [place] of Health and Human Service's (HHS's) declaration [...] Performed By: #### U LG, CRP #### [facility] [address] [place] [address] [id number] [address] Soo Donnelly Vital Signs Date Time Vital Sign Value Performing Clinician Facility 11-22-2024 13:21-0500 Body mass index (BMI) [Ratio] 28.66 kg/m2 Delgado Murillo DO Work Phone: [facility] 11-22-2024 13:21-0500 Body weight 83.01 kg Delgado Lidia DO Work Phone: [facility] 11-22-2024 13:21-0500 Diastolic blood pressure 80 mm[Hg] Delgado Lidia DO Work Phone: [facility] 11-22-2024 13:21-0500 Systolic blood pressure 128 mm[Hg] Delgado Lidia DO Work Phone: [facility] 11-01-2024 14:30-0500 Blood Pressure Location [facility] 11-01-2024 14:30-0500 Diastolic blood pressure 74 mm[Hg] [facility] 11-01-2024 14:30-0500 Heart rate 93 /min [facility] 11-01-2024 14:30-0500 Respiratory rate 16 /min [facility] 11-01-2024 14:30-0500 Systolic blood pressure 112 mm[Hg] [facility]ad [facility] 10-20-2024 11:08-0500 Body height 167.6 cm Pmh [address] [facility] 10-20-2024 11:08-0500 Body mass index (BMI) [Ratio] 28.41 kg/m2 Pmh [address] [facility] 10-20-2024 11:08-0500 Body weight 79.83 kg Pmh [address] [facility] 10-13-2024 14:20-0500 Body height 170.2 cm Becca NUNEZ Work Phone: [facility] 10-13-2024 14:20-0500 Body mass index (BMI) [Ratio] 28.51 kg/m2 Becca Schwarz AQUARIUM TANK ATTENDANT-DATA SYSTEMS MANAGER Work Phone[facility] 10-13-2024 14:20-0500 Body weight 82.56 kg Becca Schwarz AQUARIUM TANK ATTENDANT-DATA SYSTEMS MANAGER Work Phone: [facility] 11-01-2022 15:19-0500 Blood Pressure Location Nicola NILL [facility] [place] 11-01-2022 15:19-0500 Diastolic blood pressure 80 mm[Hg] Nicola NILL [facility] [place] 11-01-2022 15:19-0500 Heart rate 72 /min Nicola NILL [facility] [place] 11-01-2022 15:19-0500 Respiratory rate 16 /min Nicola NILL [facility] [place] 11-01-2022 15:19-0500 Systolic blood pressure 118 mm[Hg] Nicola NILL [facility] [place] 10-01-2022 16:30-0400 Body height 170.18 cm Clarice Scally Other [facility] Other 10-01-2022 16:30-0400 Body mass index (BMI) [Ratio] 32.84 kg/m2 Clarice Scally Other [facility] Other 10-01-2022 16:30-0400 Body weight 95.12 kg Clarice Scally Other [facility] Other 10-01-2022 16:30-0400 Diastolic blood pressure 82 mm[Hg] Clarice Scally Other [facility] Other 10-01-2022 16:30-0400 Respiratory rate 18 /min Clarice Scally Other [facility] Other 10-01-2022 16:30-0400 SaO2% (BldA) [Mass fraction] 97 % Clarice Hull Other [facility] Other 10-01-2022 16:30-0400 Systolic blood pressure 116 mm[Hg] Clarice Hull Other [facility] Other 08-28-2022 14:30-0400 Body height 170.18 cm Nahid Mccoy Other [facility] Other 08-28-2022 14:30-0400 Body mass index (BMI) [Ratio] 34.55 kg/m2 Nahid Mccoy Other [facility] Other 08-28-2022 14:30-0400 Body weight 100.06 kg Nahid Mccoy Other [facility] Other 08-28-2022 14:30-0400 Diastolic blood pressure 82 mm[Hg] Nahid Mccoy Other [facility] Other 08-28-2022 14:30-0400 Respiratory rate 18 /min Nahid Mccoy Other [facility] Other 08-28-2022 14:30-0400 SaO2% (BldA) [Mass fraction] 97 % Nahid Mccoy Other [facility] Other 08-28-2022 14:30-0400 Systolic blood pressure 121 mm[Hg] Nahid Mccoy Other [facility] Other Encounters Encounter Date Encounter Type Care Provider Facility Start: 02-07-2025 ambulatory Vinayak Baltazar Facjustin lity:[facility] Start: 11-22-2024 End: 11-22-2024 Bamboo flowsheet Delgado Lidia DO Work Phone: [facility] Start: 11-22-2024 End: 11-22-2024 Bamboo flowsheet Delgado Lidia DO Work Phone: [facility] Start: 11-22-2024 End: 11-22-2024 Patient encounter procedure Delgado Lidia DO Work Phone: [facility] Start: 11-22-2024 End: 11-22-2024 Periodic preventive med est patient 40-64yrs Delgado Lidia DO Work Phone: [facility] Comment on above: Well woman exam with routine gynecological exam; H/O: hysterectomy; Breast cancer screening by mammogram; Yeast infection Start: 11-01-2024 End: 11-01-2024 ambulatory Vinayak Baltazar Facility:[facility] Start: 11-01-2024 End: 11-01-2024 Patient encounter procedure Vinayak Baltazar [facility] Start: 10-27-2024 End: 10-27-2024 Evaluation and management of inpatient TATYANA Lawton [facility] Start: 10-20-2024 End: 10-20-2024 ambulatory [facility] Pat Phone Call Provider 1 [facility] - Pre Admit Start: 10-20-2024 End: 10-20-2024 ambulatory [facility] Start: 10-18-2024 End: 10-18-2024 ambulatory Hebert Jara MD Facility:[facility] Start: 10-14-2024 ambulatory Vinayak Baltazar Facilit y:[facility] Start: 10-13-2024 End: 10-13-2024 Office outpatient new 30 minutes Becca Schwarz APRN-DATA SYSTEMS MANAGER Work Phone: [facility] Comment on above: Positive fecal occul t blood test (Primary Dx); Rectal bleeding; Gastroesophageal reflux disease, unspecified whether esophagitis present Start: 10-13-2024 End: 10-13-2024 ambulatory [facility] Start: 10-04-2024 End: 10-04-2024 ambulatory Hebert Jara MD Facility:[facility] Start: 09-27-2024 End: 09-27-2024 Office outpatient visit 15 minutes Delgado Lidia DO Work Phone: [facility] Comment on above: Encounter to [...] 09-20-2024 End: 09-20-2024 ambulatory Hebert Jara MD Facility:[facility] Start: 09-09-2024 End: 09-09-2024 ambulatory Craol Webb PT Work Phone: [facility] Comment on above: Neck pain (Primary D x); Chronic bilateral low back pain with bilateral sciatica Start: 09-09-2024 End: 09-09-2024 Bamboo flowsheet Carol Webb PT Work Phone: [facility] Start: 09-09-2024 End: 09-09-2024 Bamboo flowsheet Carol Webb PT Work Phone: [facility] Start: 08-30-2024 End: 08-30-2024 Departed [facility] [address] Work Phone: Start: 08-30-2024 End: 08-30-2024 ambulatory NON STAFF [facility] Work Phone: Start: 04-05-2024 End: 04-05-2024 ambulatory DELGADO MURILLO Not Available Start: 03-15-2024 End: 03-15-2024 Emergency department patient visit Nicola Neff Facility:[facility] Start: 10-22-2023 End: 10-22-2023 ambulatory JESSICA SANCHEZ Not Available Start: 08-15-2023 End: 08-15-2023 ambulatory NON STAFF [facility] Work Phone: Start: 08-15-2023 End: 08-15-2023 Departed Referred [facility] [address] Work Phone: Start: 12-05-[address] SAMI MCCARTY Facility :[facility] Start: 11-09-2022 End: 11-10-[address] DOCTOR STEIN Facility:[facility] Start: 11-01-2022 End: 11-01-2022 Patient encounter procedure Nicola BUCHANAN [facility] Start: 10-29-2022 End: 10-29-2022 ambulatory Clarice Hull Other [facility] Other Start: 10-29-2022 Telephone encounter [facility]ice [facility] Start: 10-14-2022 End: 10-14-2022 ambulatory Clarice Hull Other [facility] Other Start: 10-14-2022 Telephone encounter Clarice [facility] Start: 10-01-2022 ([id number]) Weight Management f/u Clarice Hull [facility] Start: 10-01-2022 End: 10-02-[address] LUZ ELENA SAUCEDA [facility] Other Start: 09-19-2022 End: 09-19-2022 ambulatory Nahid Mccoy Other [facility] Other Start: 09-19-2022 Telephone encounter Nahid [facility] Start: 09-18-2022 End: 09-18-[address] LUZ ELENA SAUCEDA Facility:[facility] Start: 09-12-2022 End: 09-13-[address] ABIGAIL GONSALVES Facility:[facility] Start: 08-28-2022 End: 08-28-2022 ambulatory Nahid Mccoy Other [facility] Other Start: 08-28-2022 Nutrition therapy Nahid Gooden [facility] Start: 07-22-2022 Encounter for genera l adult medical examination without abnormal findings DR SAMI MCCARTY [facility] Start: 07-19-2022 End: 07-20-[address] [...] laboratory examination DR DELGADO MURILLO [facility] Start: 05-13-2022 End: 05-14-[address] DELGADO MURILLO Facility:[facility] Start: 05-13-2022 End: 05-14-2022 Encounter for preprocedural laboratory examination DR DELGADO MURILLO Facility:[facility] Start: 05-11-2022 Encounter for preprocedural cardiovascular examination DR DELGADO MURILLO [facility] Start: 05-08-2022 End: 05-09-[address] SAMI MCCARTY Facility:[facility] Start: 05-08-2022 End: 05-09-2022 Encounter for preprocedural cardiovascular examination DR SAMI MCCARTY Facility:[facility] Start: 05-02-2022 End: 05-02-[address] DELGADO MURILLO Facility:[facility] Start: 02-19-2022 End: 02-20-[address] SAMI MCCARTY Facility:[facility] Start: 12-04-2021 End: 12-04-[address] SAMI MCCARTY Facility:[facility] Procedures Date Procedure Procedure Detail Performing Clinician Start: 10-27-2024 Colonoscopy Delgado burnette DO Work Phone: Start: 11-27-2023 Mammography Carolflavia lundy PT Work [...] Nicola BUCHANAN Start: 11-21-2011 Endometrial ablation Mo hamad Mouchnadine Start: 03-28-2003 Cholecystectomy Mohamad Mouchnadine Abdominoplasty and liposuction Nicola BUCHANAN Arthroscopy of knee Nicola BUCHANAN Comment on above: LEFT Breast biopsy and re lated procedures Nicola BUCHANAN Comment on above: LEFT section Nicola Mei Diagnostic endoscopi c examination of ovary Nicola BUCHANAN Comment on above: OVARIAN CYSTS X3 Endometrial ablation Nicola BUCHANAN Extraction of wisdom tooth Jered BUCHANAN H/O: hysterectomy H/O: hysterectomy Delgado Murillo DO Work Phone: History of cholecystectomy S/P cholecyste ctomy Mohshireen Baltazar Laparoscopic cholecystectomy Nicola BUCHANAN Laparoscopic excisio n of cyst of left ovary Nicola CANDELARIOL Laparoscopic excisio n of cyst of right ovary Nicola CANDELARIOL Ligation of fallopian tube Jered BUCHANAN Comment on above: DONE WITH C SECTION LIPOMA EXCISION 4 Nicola KEBEDE Comment on above: ABDOMEN X3 REPAIR FOR TMJ Nicola BUCHANAN Plan of Treatment Date Care Activity Detail Author Start: 10-27-2034 Screening for malignant neoplasm of colon [facility] Start: 05-28-2031 Screening for malignant neoplasm of colon [facility] Start: 10-23-2028 Screening for malignant neoplasm of cervix [facility] Start: 10-23-2026 Screening for malignant neoplasm of cervix Pap Smear [facility] Start: 05-28-2026 Screening for malignant neoplasm of colon Colonoscopy [facility] Start: 10-13-2025 Adult BMI Screening Adult BMI Screening [facility] Start: 10-13-2025 Tobacco Screening Tobacco Screening [facility] Start: 11-27-2024 Screening for malignant neoplasm of breast Mammogram [facility] Start: 11-22-2024 End: 01-23-2026 MG Breast - bilateral Screening Bilateral screening mammogram Imaging Routine Breast cancer screening by mammogram Expected: 11/22/2024 (Approximate), Expires: 01/23/2026 [facility] Work Phone: Comment on above: Expected: 11/22/2024 (Approximate), Expi res: 01/23/2026 Start: 11-22-2024 End: 11-22-2024 Patient encounter procedure [facility] Comment on above: Arrived Start: 10-27-2024 End: 10-27-2024 Admission to same day surgery center [facility] Comment on above: ESOPHAGOGASTRODUODENOSCOPY DIAGNOSTIC [4 3235 (CPT )] Start: 10-27-2024 End: 10-27-2024 Colonoscopy flx dx w/collj spec when pfrmd [facility] Start: 10-27-2024 End: 10-27-2024 Esophagogastroduodenoscopy transoral diagnostic [facility] Start: 10-27-2024 Subsequent hospital visit by physician [facility] Start: 10-26-2024 End: 10-26-2024 Patient encounter procedure 10/26/2024 1:45 PM EST Office Visit [facility] [address] [place] [address] Becca Schwarz, [employer] T[employer] ATTENDANT-DATA SYSTEMS MANAGER [address] [place] [address] [facility] Start: 10-20-2024 End: 10-20-2024 ambulatory 10/20/2024 4:20 PM EST Support Visit [facility] Admit [address] [place] [id number] [facility] Ad[facility] Start: 09-27-2024 End: 09-27-2024 Patient encounter procedure 09/27/2024 3:10 PM EDT Office Visit [facility] [address] [place] [id number] Delgado Murillo DO [address] [place] [address] Arrived [facility] Comment on above: Arrived Start: 09-09-2024 End: 09-09-2024 ambulatory 09/09/2024 4:00 PM EDT Evaluation [facility] [address] [place] [phone] Carol Webb, PT [address] [place] [address] Arrived [facility] Comment on above: Arrived Start: 08-01-2024 COVID-19 Vaccine () COVID-19 Vaccine () [facility] Start: 08-01-2024 Influenza vaccination [facility] Start: 1995 DTaP,Tdap and Td Vaccines (1 - Tdap) DTaP,Tdap and Td Vaccines (1 - Tdap) [facility] Start: 1994 Adult BMI Follow Up Plan Adult BMI Follow Up Plan [facility] Start: 1988 Depression Screening Depression Screening [facility] Start: 1976 Screening for malignant neoplasm of colon [facility] Start: 1976 Tobacco Counseling Tobacco Counseling [facility] CHLAMYDIA TRACHOMATI S (GENITO/STI) CHLAMYDIA TRACHOMATIS (GENITO/STI) Lab Routine Vaginal spotting Ordered: 09/27/2024 [facility] Comment on above: Ordered: 09/27/2024 End: 10-13-2025 EGD / Colonoscopy EGD / Colonoscopy GI Routine Positive fecal occult blood test 1 Occurrences starting 10/13/2024 until 10/13/2025 [facility] Work Phone: Comment on above: 1 Occurrences starting 10/13/2024 until 10/13/2025 Neisseria gonorrhoea e DNA [Presence] in Unspecified specimen by NOLA with probe detection Neisseria gonorrhea DNA probe, direct Lab Routine Vaginal spotting Ordered: 09/27/2024 [facility] Comment on above: Ordered: 09/27/2024 SURESWAB(R) ADVANCED VAGINITIS PLUS, TMA SURESWAB(R) ADVANCED VAGINITIS PLUS, TMA Pathology and Cytology Routine Vaginal spotting Ordered: 09/27/2024 [facility] Work Phone: Comment on above: Ordered: 09/27/2024 THIN PREP TIS PAP AND HR HPV DNA THIN PREP TIS PAP AND HR HPV DNA Pathology and Cytology Routine Well woman exam with routine gynecological exam H/O: hysterectomy Ordered: 11/22/2024 [facility] Comment on above: Ordered: 11/22/2024 Immunizations Immunization Date Immunization Notes Care Provider Ramila [email or web address] 02-15-2018 SARS-CoV-2 mRNA (ubaxokzzoyx-mict-olul ose) vaccine Vinayak Baltazar [facility] 10-02-2004 influenza virus vaccine, unspecified formulation Becca Schwarz AQUARI[employer] TANK ATTENDANT-DATA SYSTEMS MANAGER Work Phone: [facility] NEGATED: Highlighted row has not occurred!11-01-2022 influenza virus vaccine, unspecified formulation Nicola CANDELARIOHamida [facility] [place] Payers Date Payer Category Payer Self-pay [id number] 2023 Private Health Insurance [employer] [id number] 2023 Unknown [id number]. 1.13.693.2. [id number] 2014 Commercial Managed C are - PPO [employer] [id number]. [id number] 1976 Unknown [id number] 2.16.840.1.283930.3.579.2. 593 1976 Unknown [id number] 2.16.840.1.999787.3.579.2. 593 1976 Unknown [id number] 2.16.840.1.086147.3.579.2. 593 1976 Unknown [id number] 2.16.840.1.893471.3.579.2. 593 1976 Unknown [id number] 2.16.840.1.850881.3.579.2. 593 1976 Unknown [id number] 2.16.840.1.622403.3.579.2. 593 1976 Unknown [id number] 2.16.840.1.266853.3.579.2. 593 1976 Unknown [id number] 2.16.840.1.413923.3.579.2. 593 1976 Unknown [id number] 2.16.840.1.847744.3.579.2. 593 1976 Unknown [id number] 2.16.840.1.150474.3.579.2. 593 1976 Unknown [id number] 2.16.840.1.587044.3.579.2. 593 1976 Unknown [id number] 2.16.840.1.694045.3.579.2. 593 1976 Unknown [id number] 2.16.840.1.720138.3.579.2. 593 1976 Unknown [id number] 2.16.840.1.453171.3.579.2. 593 1976 Unknown [id number] 2.16.840.1.611513.3.579.2. 718 1976 Unknown [id number] 2.16.840.1.729330.3.579.2. 9 1976 Unknown [id number] 2.16.840.1.129129.3.579.2. 9 1976 Unknown [id number] 2.16.840.1.473338.3.579.2. 9 1976 Unknown [id number] 2.16.840.1.942269.3.579.2. 9 1976 Unknown [id number] 2.16.840.1.771741.3.579.2. 6 1976 Unknown [id number] 2.16.840.1.120310.3.579.2. 196 1976 Unknown [id number] 2.16.840.1.429734.3.579.2. 1976 Unknown [id number] 2.16.840.1.969213.3.579.2. 196 1976 Unknown [id number] 2.16.840.1.879528.3.579.2. 727 1976 Unknown [id number] 2.16.840.1.871707.3.579.2. 7 1976 Unknown [id number] 2.16.840.1.283462.3.579.2. 1285 1976 Unknown [id number] 2.16.840.1.215621.3.579.2. 1286 1959 Self-pay [id number] 1959 Unknown [id number] 2.16.840.1.552103.19 Unknown [id number] 2.16.840.1.405198.3.579.2. 531 Social History Date Type Detail Facility Unknown if ever smoked [facility] Other Start: 10-20-2023 End: 10-22-2023 Sex Assigned At [facility] Start: 11-01-2022 Tobacco smoking status Ex-smoker (finding) [facility] Tobacco smoking status Former sm okeless tobacco user, quit more than 30 days ago [facility] [place] Start: 1975 Sex Assigned At Female [facility] Start: 06-25-2023 Tobacco smoking status NHIS Smokes tobacco daily [facility] History of tobacco use Cigarette Smoker [facility] Start: 04-05-2024 End: 09-27-2024 Alcoholic beverage [...] Start: 10-13-2024 End: 10-20-2024 Tobacco smoking status NHIS Occasional tobacco smoker [facility] History of tobacco use [facility] Start: 10-13-2024 End: 10-20-2024 Tobacco use and exposure Smokeless tobacco non-user [facility] Start: 10-13-2024 Alcoholic beverage intake Current non-drinker of alcohol (finding) [facility] Start: 07-06-2015 Sex Female (finding[facility] Start: 12-06-2022 Gender identity Identifies as female gender (finding) [facility] Start: 12-06-2022 Sexual orientation Homosexual (finding) [facility] Start: 10-20-2024 Alcohol Comment rare [facility] Tobacco Current vaping o r e-cigarette use Smokeless Tobacco Use:. [facility] Tobacco smoking status No Smokin g Status Entered [facility] Functional Status Date Assessment Result Facility 11-01-2024 Functional Status N/A Tr[facility] 11-01-2022 Functional Status N/A General Delgado yaa [place] Clinical Notes 05-16-2022 to 11-22-2024 Franci SuttonJASON - 11/22/2024 1:00 PM ESTPerioperative Nursing Note - Tammy Casas RN - 10/20/2024 11:10 AM ESTPerioperative Nursing Note - Tammy Casas RN - 10/20/2024 11:10 AM EST Note Date & Type Note Facility 11-22-2024 History of Presen t illness Narrative Reason for Appointment: Patient ID: Horacio Keating is a 49 y.o. female who presents for Gynecologic Exam Patient presents today for Annual Exam. MEDICATIONS Current Outpatient Medications Medication Instructions ALPRAZolam (XANAX) 0.25 mg, Oral, 3 times daily PRN doxepin (SINEQUAN) 10 mg, Oral, Nightly estradiol (ESTRACE) 0.5 mg, Every 24 hours meloxicam (MOBIC) 15 mg, Oral, Daily metoprolol tartrate (LOPRESSOR) 50 mg, Oral, 2 times daily omeprazole (PRILOSEC) 40 mg, Oral, 2 times daily phentermine (ADIPEX-P) 37.5 mg, Oral, Daily before breakfast testosterone (Fortesta) 10 MG/ACT (2%) gel gel 1 pump to skin in the morning to the thighs Transdermal QOD for 30 days tiZANidine (ZANAFLEX) 8 mg, Oral, Nightly ALLERGIES Allergies Allergen Reactions Albuterol Other convulsions NEED TO CUT DOWN ADRENALIN TO PREVENT SEIZURES Other Reaction(s): seizure Bee Venom Other Reaction(s): Nausea, Swelling Egg-Derived Products Other Reaction(s): Hives, Unknown Nitrofurantoin Swelling Other Reaction(s): Neck swelling, Unknown Nitrofurantoin Macrocrystal Other Reaction(s): Unknown Other Pecans PROBLEMS Active Ambulatory Problems Diagnosis Date Noted [...] 2006 laparoscopy-operative POLYPECTOMY 2005 uterine polyp removal [place] LAP,CHOLECYSTECTOMY 2003 [place] LIGATION,FALLOPIAN TUBE W/ 2006 c-sec w/tubal [place] TMJ ARTHROSCOPY/SURGERY 1996 SHOULDER ARTHROSCOPY Left REVIEW OF SYSTEMS Review of Systems: Review of Systems All other systems reviewed and are negative. OBJECTIVE Objective: Physical Exam Constitutional: Appearance: Normal appearance. Genitourinary: Right Adnexa: not tender and no mass present. Left Adnexa: not tender and no mass present. No cervical discharge. Breasts: Breasts are soft. Right: Normal. Left: Normal. HENT: Head: Normocephalic. Nose: Nose normal. Mouth/Throat: Mouth: Mucous membranes are moist. Cardiovascular: Rate and Rhythm: Normal rate. Pulmonary: Effort: Pulmonary effort is normal. Abdominal: General: Bowel sounds are normal. Palpations: Abdomen is soft. Musculoskeletal: General: Normal range of motion. Cervical back: Normal range of motion. Neurological: General: No focal deficit present. Mental Status: She is alert. Skin: General: Skin is warm and dry. Psychiatric: Mood and Affect: Mood normal. Vitals and nursing note reviewed. Exam conducted with a transit operations supervisor present. Vitals: Estimated body mass index is 28.66 kg/m as calculated from the following: Height as of 06/26/23: 5' 7 . Weight as of this encounter: 183 lb. BP: 128/80 No LMP recorded (lmp unknown). Patient has had a hysterectomy. ASSESSMENT & PLAN ICD-10-CM 1. Well woman exam with routine gynecological exam Z01.419 THIN PREP TIS PAP AND HR HPV DNA 2. H/O: hysterectomy Z90.710 THIN PREP TIS PAP AND HR HPV DNA 3. Breast cancer screening by mammogram Z12.31 Bilateral screening mammogram Bilateral screening mammogram Annual: Patient presents today for an annual exam. Patient states she is doing well and has no complaints. Pap was obtained without difficulty and patient given mammogram order to have scheduled/obtained. Nursing will send progesterone/testosterone cream to [facility] for patient. Orders Placed This Encounter Procedures Bilateral screening mammogram Follow Up: Patient is to return in one year for annual unless needed otherwise. Documented by Franci Sutton MA on behalf of: Delgado Murillo DO documented in this encounter [facility] 10-20-2024 Nurse Note Preoperative Education Checklist- General Surgery date: 10/27/24 Surgery time: 1045a Arrival time: 845a 1. Bring a photo ID and your insurance card with you the day of surgery. You will check in at the main lobby of the [facility]- registration desk is straight ahead as soon as you walk in. Tell them you are here for surgery. 2. If you have a Living Will/Durable Power of Trial Management Associate for Health Care that is not on [...] after you have bathed. 5. NO nail icelandic/acrylic on at least one finger. If you are having a hand, wrist or foot surgery then all nail icelandic and artificial/acrylic nails must be removed from [...] please call the Preadmission Testing office at [phone], Mon.-Fri. 7 a.m.-3 p.m. Leave a voicemail [...] Stop taking 0 days prior to procedure [facility] [employer] [facility] 10-20-2024 Miscellaneous Notes Preoperative Education Checklist- General Surgery date: 10/27/24 Surgery time: 1045a Arrival time: 845a 1. Bring a photo ID and your insurance card with you the day of surgery. You will check in at the main lobby of the [facility]- registration desk is straight ahead as soon as you walk in. Tell them you are here for surgery. 2. If you have a Living Will/Durable Power of Trial Management Associate for Health Care that is not on [...] after you have bathed. 5. NO nail icelandic/acrylic on at least one finger. If you are having a hand, wrist or foot surgery then all nail icelandic and artificial/acrylic nails must be removed from [...] please call the Preadmission Testing office at [phone], Mon.-Fri. 7 a.m.-3 p.m. Leave a voicemail [...] prior to procedure documented in this encounter [facility] 10-13-2024 History of Presen t illness Narrative Images from the original note were not included. Chief Complaint: Positive fecal occult blood History of Present Illness Horacio N Keating is a 49 y.o. female who [...] 05/28/2021 Performed by Nicola Gee DO at [facility] COLONOSCOPY N/A 05/04/2018 Performed by Nicola Gee DO at [facility] CYST REMOVAL from uterus and ovaries x 5 EGD N/A 05/04/2018 Performed by Nicola Gee DO at [facility] ESOPHAGOGASTRODUODENOSCOPY N/A 05/28/2021 Performed by Nicola Gee DO at [facility] KNEE ARTHROSCOPY Left KNEE ARTHROSCOPY Right [...] muscle spasms., Disp: , Rfl: peg 3350-sod sulf,lbqz-zzu-hvk 178.7-7.3-0.5 gram recon soln, Take 1 kit [...] patient/family/caregiver Referring and communicating with other health career transition specialist Positive fecal occult blood test [R19.5] MAYRA VIEIRA [facility] [place] This note was created with the assistance of a speech recognition program. While intending to generate a timely document that accurately reflects the content of the visit, no guarantee can be provided that every grammatical or spelling mistake has been or will be identified or corrected. Thank you for your understanding. MAYRA Vieira 10/13/24 1513 documented in this encounter [facility] 09-27-2024 History of Presen t illness Narrative [...] right thigh HYSTERECTOMY 2021 OTHER SURGICAL HISTORY 2015 uterine ablation PELVIC LAPAROSCOPY 2006 laparoscopy-operative POLYPECTOMY 2005 uterine polyp removal [place] LAP,CHOLECYSTECTOMY 2003 [place] LIGATION,FALLOPIAN TUBE W/ 2006 c-sec w/tubal [place] TMJ ARTHROSCOPY/SURGERY 1996 SHOULDER ARTHROSCOPY Left REVIEW [...] nursing note reviewed. Exam conducted with a transit operations supervisor present. Vitals: Estimated body mass index [...] Delgado Murillo DO documented in this encounter [facility] 09-09-2024 History of Presen t illness Narrative [...] No resulting surgeries. 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 Also notes poor balance with no diagnosed [...] Keep all follow-up visits. Medicines ? Take eyyc-whw-vhabuhh and prescription medicines only as told by [...] to (more content not included)... [facility] 10-01-2022 Evaluation note Encounter Date Diagnosis Assessment [...] was counseling done by myself, Ann ANGLIN. [facility] Other 09-28-2022 Evaluation note* Encounter Date Diagnosis Assessment Notes Treatment Notes Treatment Clinical Notes Aug, Abnormal weight gain (ICD-10 - R63.5) Aug, Prediabetes (ICD-10 - R73.03) Aug, Mixed hyperlipidemia (ICD-10 - E78.2) Aug, Hypertension (ICD-10 - I10) Aug, Obstructive sleep apnea (ICD-10 - G47.33) Aug, GERD (gastroesophageal reflux disease) (ICD-10 - K21.9) Aug, Metabolic syndrome X (ICD-10 - E88.81) [facility] Other 06-16-2022 NoteDISCHARGE SUMMARY DISCHARGE DATE: 05/18/2022 [...] by: DR DELGADO MURILLO . 05/20/2022 07:51:00[id number] NoteThe [place], [place] NAME: HORACIO PUGH DATE OF : MEDICAL REC#: [id number] IMMIGRATION CONSULTANT: [id number] [facility] ADMIT DATE: 05/16/2022 11:05:00 CAMPUS RECRUITING INTERN DATE: 05/17/2022 21:20 DICTATING PHYSICIAN: DELGADO MURILLO DICTATION DATE: 05/16/2022 15:02 OP Note OPERATION DATE: 05/16/2022 PROCEDURE: Supracervical hysterectomy with left salpingo-oophorectomy with right salpingectomy and right ovarian cystotomy of approximately 3 cm cyst. SURGEON: Delgado Murillo D.O. SENIOR DIRECTOR OF GLOBAL COMMERCIAL TECHNOLOGY SOLUTIONS: SHUKRI Bailon URINE OUTPUT: Yellow and clear. [...] Murillo DO on 05/23/2022 10:30 AM EDT [facility] Signed and Approved by: DR DELGADO MURILLO . 05/23/2022 10:30:00[facility] No data available for this section [facility] [place] Evaluation + Plan note Future Appointments Appointment Date:02/07/2025 02:15:00 PM Scheduled Provider:Delaney BURK, Vinayak Jimenez Location:[facility] Appointment Type:[facility] Follow Up Future Scheduled Tests Laboratory* Antimitochondrial Antibody, Quantitative 11/01/24 * Smooth Muscle Antibody Screen 11/01/24 * IgA, Quant. 11/01/24 * IgG, Quant. 11/01/24 * t-Transglutaminase IgA 11/01/24 * Comprehensive Metabolic Panel 11/01/24 * Comprehensive Metabolic Panel 12/02/24 * Comprehensive Metabolic Panel 01/02/25 [facility] evaluation noteNo InformationNortCertain Other evaluation noteNo assessment information available [facility] Work Phone: evaluation note* Diagnosis Neck pain- Primary Cervicalgia Chronic bilateral low back pain with bilateral sciatica [facility] Diagnosis Positive fecal occult blood test- Primary Rectal bleeding Hemorrhage of rectum and anus Gastroesophageal reflux disease, unspecified whether esophagitis present [facility] Diagnosis Encounter to discuss test results Other specified counseling Vaginal spotting Other specified noninflammatory disorder of vagina Hot flashes due to surgical menopause Surgical menopause [facility] Diagnosis Well woman exam with routine gynecological exam Routine gynecological examination H/O: hysterectomy Acquired absence of both cervix and uterus Breast cancer screening by mammogram Yeast infection documented in this encounter [facility] [...] History TMJ surgery Hospitalization History see above [facility] Other History general Narrative - Reported* Type [...] [facility]d . [facility] Other Hospital Discharge instructions No data available for this section [facility] [place] InstructionsNot on filedocumented in this encounter [place] SystemInstructionsNot on filedocumented in this encounter [facility] SystemProgress note No data available for this section [facility] [place] Summary Purpose Family History Relationship Condition Age [...] content) Specialty Diagnoses / Procedures Referred By Teja t Referred To Contact Physical Therapy Diagnoses Other spondylosis, lumbar region Procedures [place] PHYS THERAPY EVALUATION Edwige Magaña MD [address] [place] [address] Carol Webb, PT [address] [place] [address] Referral ID Status Reason Start Date Expiration Date V isits Requested Visits Authorized [id number] Authorized 09/02/2024 03/01/2025 40 40 Reason Comments POSITIVE OCCULT TEST POSITIVE OCCULT STO OL, REF BY DR. HOY Reason Comments Results Reason Comments Gynecologic Exam Patient Care team informatio n (unrecognized section and content) Team Status: Active Member Role Status Dates NON STAFF Primary Care Provider Active Team Status: Inactive Member Role Status Dates NON STAFF Primary Care Provider Active Dedrick Fuller DO [facility] Attending Provider Active Team Status: Inactive Member Role Status Dates NON STAFF Primary Care Provider Active Start: August 30, 2024 End: August 30, 2024 Dedrick Fuller [facility] DO [facility] Attending Provider Active Start: August 30, 2024 End: August 30, 2024 [employer] Ii Assembler Relationship Specialty Start Date End Date Sami Mccarty MD [address] [place] [address] PCP - General Family Medicine 06/26/23 [employer] Ii Assembler Relationship Specialty Start Date End Date Sami Mccarty MD [address] [place] [address] PCP - General Family Medicine 06/26/23 [employer] Ii Assembler Relationship Specialty Start Date End Date Sami Mccarty MD PCP - General 05/04/18 [employer] Ii Assembler Relationship Specialty Start Date End Date Sami Mccarty MD PCP - General 05/04/18 [employer] Ii Assembler Relationship Specialty Start Date End Date Sami Mccarty MD [address] [place] [address] PCP - General Family Medicine 06/26/23 [employer] Ii Assembler Relationship Specialty Start Date End Date Sami Mccarty MD [address] [place] [address] PCP - General Family Medicine 06/26/23 [employer] Ii Assembler Relationship Specialty Start Date End Date Sami Mccarty MD [address] [facility] [place] [address] PCP - General Family Medicine 06/26/23 INFORMATION SOURCE (unrecogn ized section and content) DATE CREATED AUTHOR 12/03/2022 [facility] DATE CREATED AUTHOR AUTHOR'S ORGANIZ ATION 03/21/2024 [facility] DATE CREATED AUTHOR AUTHOR'S ORGANIZ ATION 08/31/2024 [facility] [facility] DATE CREATED AUTHOR AUTHOR'S ORGANIZ ATION 09/28/2024 [facility] EPIC DATE CREATED AUTHOR AUTHOR'S ORGANIZ ATION 10/15/2024 [facility] DATE CREATED AUTHOR AUTHOR'S ORGANIZ ATION 10/23/2024 [facility] DATE CREATED AUTHOR AUTHOR'S ORGANIZ ATION 11/02/2024 [facility] DATE CREATED AUTHOR AUTHOR'S ORGANIZ ATION 11/12/2024 [facility] Go[facility] (unrecognized section and content) [...] BE BASED ON THE PRIMARY CLINICAL RECORDS. [facility]. provides no warranty or guarantee of the accuracy or completeness of information in this document.
[2024-11-30 14:07] LABS: Age Gdln ACOG Testing Note (.); HPV Aptima Negative (Negative); IGP, Aptima HPV, rfx 16/18,45 Note (.)
== END 2024-11-22 21:13 | disposition home or self-care (01) ==
LOC: LAB 21:12
PROVIDERS: PCP Family Medicine; Visit Provider Obstetrics & Gynecology
DX: Z01.419 Encounter for gynecological examination (general) (routine) without abnormal findings (principal); Z90.710 Acquired absence of both cervix and uterus
CPT/HCPCS: 87624; 88175

== ENCOUNTER 2025-01-17 13:45 | Outpatient (OUT) | payer OTHER, SELFPAY ==
[2025-01-17 14:47] LABS: Basophils Percent Auto 0.5 % (0.2-2.0); Eosinophils Absolute Auto 0.1 10^3/uL (0.0-0.7); Eosinophils Percent Auto 1.2 % (0.9-7.0); Hematocrit 41.2 % (36.0-48.0); Hemoglobin 13.9 g/dL (12.0-16.0); Immature Granulocytes Abs Auto 0.01 10^3/uL (0.00-0.03); Immature Granulocytes Pct Auto 0.2 % (0.0-0.5); Lymphocytes Absolute Auto 3.3 10^3/uL (1.2-3.8); Mean Corpuscular HGB Conc 33.7 g/dL (29.9-35.2); Mean Corpuscular Hemoglobin 31.3 pg (26.7-34.0); Mean Corpuscular Volume 92.8 fL (81.0-99.0); Mean Platelet Volume 10.8 fL (9.5-13.5); Monocytes Absolute Auto 0.4 10^3/uL (0.3-0.8); Monocytes Percent Auto 6.2 % (1.7-12.0); Neutrophils Absolute Auto 2.7 10^3/uL (1.4-6.5); Neutrophils Percent Auto 41.9 % (43.0-75.0); Platelet Count 285 10^3/uL (150-450); Red Blood Count 4.44 10^6/uL (4.20-5.40); Red Cell Distribution Width 11.9 % (11.0-15.0); White Blood Count 6.5 10^3/uL (4.0-11.0)
[2025-01-17 15:07] LABS: C Reactive Protein <0.50 mg/dL (<=0.50); Uric Acid 4.5 mg/dL (2.6-6.0)
[2025-01-17 15:39] LABS: Erythrocyte Sedimentation Rate 9 mm/hr (<=20)
[2025-01-18 04:06] LABS: Antistreptolysin O Ab 56.3 IU/mL (0.0-200.0); Rheumatoid Factor (RF) <10.0 IU/mL (<14.0)
[2025-01-18 21:07] LABS: Antinuclear Antibodies, IFA Positive (.)
== END 2025-01-17 13:46 | disposition home or self-care (01) ==
LOC: LAB 13:46
PROVIDERS: PCP Family Medicine; Visit Provider Family Medicine
DX: M13.841 Other specified arthritis, right hand (principal)
CPT/HCPCS: 36415; 84550; 85025; 85652; 86038; 86060; 86140; 86431

== ENCOUNTER 2025-01-28 07:09 | Outpatient (OUT) | payer OTHER, SELFPAY ==
--- OUTSIDE RECORDS SUMMARY | 2025-01-28 07:11 | XMS_ITS | CCD ---
Author Organization [facility] Care Team Providers Care Staff Attorney Name Role Phone Nahid Mccoy Unavailable Clarice Hull Unavailable Sami Mccarty Primary Care Physician [phone] DR ABIGAIL GONSALVES V Consulting Unavailable LUL, [...] Unavailable LUL, DR GALLARDO Primary Care Unavailable SIMAEL MENJIVAR Attending Unavailable ISMAEL MENJIVAR Admitting Unavailable [...] [facility] Unavailable [facility] Admitting Unavailable NON STAFF Primary Care Unavailable Sami Mccarty MD Primary Care Provider [phone] BECCA SCHWARZ Attending Unavailable HOY, SAMI M Referring Unavailable HOY, SAMI M Primary Care Unavailable Vinayak Baltazar Attending Unavailable Vinayak Baltazar Attending Unavailable LUL, SAMI M Referring Unavailable HOY, SAMI M Primary Care Unavailable SHEELATATYANA Admitting Unavailable SHEELA MENNATALLAH M Attending Unavailable HOY, SAMI M Primary Care Unavailable Marek BURK, Hebert Rock Attending Unavailable Gijo BURK, Hebert Rock Attending Unavailable Gijo BURK, Hebert Rock Attending Unavailable Giedraitis MD, Hebert Rock Attending Unavailable DELGADO MURILLO Attending Unavailable CAROL WEBB Attending Unavailable EDWIGE MAGAÑA Referring Unavailable DELGADO MURILLO Attending Unavailable DELGADO MURILLO Attending Unavailable Sami Mccarty MD Primary Care Provider [phone] Allergies Allergy Classification Reported Allergen(s) Allergy Type Date of Onset Reaction(s) Facility (10 sources) NITROFURANTOIN, MACROCRYSTALS / Nitrofurantoin, Monohydrate; 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: [nitrofurantoin] Drug Allergy 05-01-20 18 Neck swelling (finding), Swelling [facility] (2 sources) Albuterol Drug Allergy [facility] Comment on above: NEED TO CUT DOWN ADR ENALIN TO PREVENT SEIZURES (3 sources) Bee/Wasp/Ant venom; 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: [Bee Stings] Allergy to substance Nausea, Swelling [facility] (2 sources) PECANS 1 Food allergy [facility] Comment on above: AIRWAY CONSTRICTION (2 sources) bee venom Drug allergy (disorder) 06-09-20 15 [facility] (2 sources) egg extract Drug Allergy 06-09-20 15 [facility] (4 sources) Nitrofurantoin; 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: [Macrobid] Drug Allergy 05-02-20 12 [facility] (2 sources) pecan pollen extract Drug Allergy [facility] (4 sources) tree nut, unspecified; 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: [TREE NUT] Drug allergy (disorder) 06-09-20 15 [facility] (13 sources) Albuterol; 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: [albuterol] Drug Allergy 07-16-20 17 Other, Other (See Comments) [facility] Repository (1 source) Nitrofurantoin Drug Allergy 10-01-20 22 [facility] (9 sources) Honey bee venom Allergy to substance 04-05-20 24 [facility] (9 sources) Nitrofurantoin Drug Allergy 05-01-20 18 Swelling [facility] (9 sources) Nitrofurantoin Drug Allergy 04-05-20 24 [facility] (9 sources) Egg-Derived Products Drug Allergy 04-05-20 24 [facility] (13 sources) Other; Translations: [OTHER] Propensity to adverse reactions 05-13-20 [facility] (2 sources) NITROFURANTOIN MONOHYD/M-CRYST; Translations: [NITROFURANTOIN MONOHYD/M-CRYST] Propensity to adverse reactions to drug (disorder) 05-01-20 [facility] Repository (1 source) Egg; Translations: [Eggs] Food allergy (disorder) [facility] Repository (1 source) PECANS; Translations: [PECANS] Food allergy (disorder) [facility] Rep[facility] (2 sources) BEE VENOM PROTEIN (HONEY BEE); Translations: [BEE VENOM PROTEIN (HONEY BEE)] Propensity to adverse reactions to drug (disorder) 04-05-20 [facility] Rep[facility] Medications Current Medications Medication Drug Class(es) Dates Sig (Normalized) Sig (Original) 0.25 MG, 0.5 MG Dose 3 ML semaglutide 0.68 MG/ML Pen Injector [Ozempic] (1 source) Start: 11-01-2024 Ozempic 2 mg/3 mL (0.25 mg or 0.5 mg dose) subcutaneous solution SubCutaneous, Refills(s) 0 Start Date: 11/01/24 Status: Ordered ALPRAZolam 0.25 mg oral tablet (19 sources) Benzodiazepine Start: 11-17-2014 take 1 tablet [...] Status: Ordered take 1 capsule by mo [facility] once daily in the morning amphetamine-dextroamphetamine XR [...] take 1 tablet [facility] mouth [facility] aspirin 325 mg EC tablet Take 1 tablet (325 mg total) by mouth in the morning. Active take 1 tablet by mouth once janett y Aspirin 81 81 MG 1 tablet Orally Once a day Active FiberCon (3 sources) Start: 11-01-2024 FiberCon See I nstructions, 3 caps BID, Refills(s) 0 Start Date: 11/01/24 Status: Ordered take 1 tablet by mouth in the [facility] polycarbophil (FIBERCON) 625 mg tablet Take 1 tablet (625 mg total) by mouth in the morning. Active celecoxib 100 mg oral capsule (3 sources) Nonsteroidal Anti-inflammatory Drug Start: 11-01-2024 take 1 capsule by mouth twice daily celecoxib 100 mg Cap = 1 cap(s), Oral, BID, Refills(s) 0 Start Date: 11/01/24 Status: Ordered take 1 capsule by [facility] in the morning, then take 1 capsule [...] Active doxepin hydrochloride 10 mg oral capsule (9 sources) Tricyclic Antidepressant Start: 06-09-20 take 1 capsule by mouth at bedtime doxepin (SINEquan) 10 MG capsule Take 10 mg by mouth at bedtime. 06/09/2023 Active estradiol 1 mg oral tablet (8 sources) Estrogen Start: 11-22-20 End: 12-22-19 take [...] 2 tablet 11/22/2024 11/26/2024 Active lactobacillus acidophilus [id number] unt / pectin 100 mg oral tablet [...] Status: Ordered meloxicam 15 mg oral tablet (18 sources) Nonsteroidal Anti-inflammatory Drug Start: 06-14-2023 take [...] Ordered metoprolol tartrate 75 mg oral tablet (12 sources) beta-Adrenergic Jeffrey Start: 11-01-2024 take 1 tablet by mouth twice daily metoprolol tartrate 75 mg oral tablet = 1 tab(s), Oral, BID, Refills(s) 0 Start Date: 11/01/24 Status: Ordered Start: 05-17-2023 [facility] metoprolol tartrate (Lopressor) [...] omeprazole 40 mg delayed release oral capsule (19 sources) Proton Pump Inhibitor Start: 2 take 1 capsule by mouth twice daily omeprazole 40 mg Cap-DR 40 mg = 1 cap(s), Oral, BID, Refills(s) 0 Start Date: 10/30/22 Status: Ordered take 1 capsule by mo [facility] every twenty-four hours Omeprazole 40 MG 1 cap(s) p.o. Once a da y Active peg 3350-sod sulf,rmwr-nge-fpp 178.7-7.3-0.5 gram recon soln (1 source) Start: 10-13-2024 End: 10-14-2024 peg 3350-sod sulf,wcuq-dhq-fhp 178.7-7.3-0.5 gram recon soln Indications: Positive fecal occult blood test Take 1 kit by mouth once daily for 1 dose. Please see instructional sheet given by physicians office. 1 each 10/13/2024 10/14/2024 Active phentermine hydrochloride 37.5 mg oral tablet (9 sources) Sympathomimetic Amine Anorectic Start: 06-13-2023 take [...] 120 actuat testosterone 10 mg/actuat topical gel (3 sources) Androgen Start: 10-19-2024 testosterone (Fortesta) 10 MG/ACT (2%) gel gel 1 pump to skin in the morning to the thighs Transdermal QOD for 30 days 10/19/2024 Active tiZANidine 4 mg oral capsule (12 sources) Central alpha-2 Adrenergic Agonist Start: 11-01-2024 [...] ulcer 10-30-2022 Episodic Gastrointestinal hemorrhage (2 sources) Hemorrhage of anus and rectum; Translations: [Rectal hemorrhage] Onset: 4 10-13-2024 Episodic Menstrual disorders (3 sources) Dysmenorrhea, unspecified; Translations: [DYSMENORRHEA UNSPECIFIED] Onset: 2 Chronic Mycoses (2 sources) Mycosis; Translations: [Candidiasis, unspecified] 11-22-2024 Episodic Osteoarthritis (3 sources) Primary osteoarthritis, left hand; Translations: [Primary osteoarthritis, right hand] Onset: 2 11-01-2024 Chronic Other aftercare (1 source) 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; Translations: [OTH SHELTER CURRENT DRUG THERAPY] Onset: 2 Episodic Other [...] 2 Chronic Other gastrointestinal disorders (1 source) Other fecal [...] Other Problems Problem Classification Problem Date Documented Da te Episodic/Chronic Immunizations and screening for infectious disease (1 source) Encounter for screening for human papillomavirus (HPV); Translations: [ENC SCREENING HUMAN PAPILLOMAVIRUS] Onset: 05-08-2022 Episodic Nonspecific chest pain (1 source) Chest pain, unspecified; Translations: [CHEST PAIN UNSPECIFIED] Onset: 05-28-2022 Episodic Other gastrointestinal disorders (1 source) Occult blood in stools; Translations: [Other fecal abnormalities] 10-13-2024 Episodic Other non-traumatic joint disorders (4 sources) Pain in unspecified joint; Translations: [PAIN IN UNSPECIFIED JOINT] Onset: 02-19-2022 Episodic Unclassified (1 source) CONTACT W/AND (SUSP) EXPOS COVID-19; Translations: [CONTACT W/AND (SUSP) EXPOS COVID-19] Onset: 12-04-2021 Results Test Name Value Interpretation Reference Range Facility IGP,APTIMA HPV,AGE GDLNon AGE GDLN ACOG TESTING Note . [facility] Comment on above: TESTS RESULT FLAG UN ITS REF RANGE LAB Clinician Provided Cytology Information Source.............Vagina No. of containers..01 ThinPrep Vial Age Algo ACOG Mya... FLAG LEGEND: L-Low Normal,H-High Normal,LL-Alert Low,HH-Alert High <-Panic Low,>-Panic High,A-Abnormal,AA-Critical Abnormal Performed at: 01 =G [address] [place] [address] Britta Wang MD, HPV APTIMA Negative Negative [facility] Comment on above: This nucleic acid am plification test detects fourteen high- risk HPV types (16,18,31,33,35,39,45,51,52,56,58,59,66,68) without differentiation. Performed at: =[address] [id number] Fast Food Cook: Britta Wang MD, Phone: [phone] Performed at: [facility] [address] [place] [id number] Fast Food Cook: Kristian Waterman MD, Phone: [phone] IGP, APTIMA HPV, RFX 16/18,45 Note . [facility] Comment on above: TESTS RESULT FLAG UN ITS REF RANGE LAB DIAGNOSIS: 02 NEGATIVE FOR INTRAEPITHELIAL LESION OR MALIGNANCY. FUNGAL ORGANISMS MORPHOLOGICALLY CONSISTENT WITH VIVIANE SPECIES ARE PRESENT. Specimen adequacy: 02 Satisfactory for evaluation. Endocervical and/or squamous metaplastic cells (endocervical component) are present. Performed by: 02 Steve Saenz, Open [employer] (ASCP) . 02 Note: Note 03 The Pap smear is a screening test designed to aid in the detection of premalignant and malignant conditions of the uterine cervix. It is not a diagnostic procedure and should not be used as the sole means of detecting cervical cancer. Both false-positive and false-negative reports do occur. Test Methodology: Note 03 This liquid based ThinPrep(R) pap test was screened with the use of an image guided system. HPV Genotype Reflex Note 02 Criteria not met, HPV Genotype not performed. FLAG LEGEND: L-Low Normal,H-High Normal,LL-Alert Low,HH-Alert High <-Panic Low,>-Panic High,A-Abnormal,AA-Critical Abnormal Performed at: 02 [facility] [address] [place] [address] Kristian Waterman MD, 03 WB [facility] [address] [address] Britta Wang MD, SP[facility] Gastroenterology Office/Clin ic Noteon 11-01-2024 Gastroenterology Office/Clinic Note Gastroenterology Office/Clinic Note HPI Staff Patient is a 49 year old female who was referred by Dr Mccarty for elevated LFTs. LFTs did improve after being repeated a week later. previous EGD/ Colonoscopy - Friday, done at [facility] with Dr. Li blood thinners- 325 daily Taking Ozempic? Yes. [...] wisdom to (more content not included)... Normal [facility] Comment on above: Result Comment: Elec tronically Signed By: Delaney BURK, Vinayak Jimenez\.br\Date and Time Signed: 11/01/24 14:36 EST H PYLORI SCREENon 10-27-2024 H. pylori Org specific cx Ql (Sara fld) Negative Normal NEG [facility] Comment on above: Performed By: #### 4 4015-6 #### [facility] ([id number]) [address] [place] [address] [address] [place] [address] Surgical Pathologyon 024 Surgical Pathology Normal [facility] Comment on above: Result Comment: [facility] [address] [place] [address] Surgical Pathology Consultation ADDENDUM MS Patient Name:HORACIO KEATING:1975 (Age: 49)Gender:FTaken:4Reported:4Physician(s):Zaheer Li MD ([phone])Copy To: Rec. #:[id number]: #[id number] Final Pathologic Diagnosis 1. Antrum biopsy: Mild [...] Electronically Signed Out gisel/11/05/2024Smith Clark MD Addendum ([facility]) Date Reported: 11/09/2024 In specimen part 1, immunohistochemistry (with appropriate controls) for Helicobacter pylori organisms is NEGATIVE. Electronically Signed Out Smith Clark MD Interpretation performed [place] [address], License number: [id number]. Clinical History Positive fecal occult blood Gross Description 1. Received in formalin labeled KEATING, antrum are two pink-julian soft tissue bits, 0.1 and 0.3 cm in greatest dimension. The specimens are filtered and submitted entirely in a single cassette. (1, ns, [id number], m8) Gemini 2. Received in formalin labeled KEATING, appendiceal are three pink-julian soft tissue bits and strips, 0.3, 0.3, and 0.6 cm in greatest dimension. The specimens are filtered and submitted entirely in a single cassette. (1, ns, [id number], m8) YEISON vaz/10/29/2024GR Specimen(s) Received 1: Antrum biopsy 2: Appendiceal orifice Fee Codes(s): 1; 48688, 12651 2; 22337 Basic Metabolic Panelon 09-3 GFR/1.73 sq M.predicted MDRD (S/P/Bld) [Vol rate/Area] mL/min/{1.73_m2} Normal [facility] Comment on above: Performed By: #### L IPID, BMP #### [facility] [address] [place] [address] [place] Calcium [Mass/volume] in Ser um or PlasmaOrdered By: Dedrick Fuller on 08-30-2024 Calcium [Mass/Vol] 9.9 mg/dL Normal 8.6-10.[address] [facility] Comment on above: Performed By: #### L IPID, BMP #### [facility] [address] [place] [address] [place] Carbon dioxide, total [Moles /volume] in Serum or PlasmaOrdered By: Dedrick Fuller on 08-30-2024 CO2 [Moles/Vol] 26.6 mmol/L Normal 21.0-31.0 [facility] Comment on above: Performed By: #### L IPID, BMP #### [facility] [address] [place] [address] [place] Chloride [Moles/volume] in S altagracia or PlasmaOrdered By: Dedrick Fuller on 08-30-2024 Chloride [Moles/Vol] 104 mmol/L Normal 98-107 [facility] Comment on above: Performed By: #### L IPID, BMP #### [facility] [address] [place] [address] [place] Cholesterol [Mass/volume] in Serum or PlasmaOrdered By: Dedrick Fuller on 08-30-2024 Cholesterol [Mass/Vol] 218 mg/dL High 140-200 [facility] Comment on above: Chol less than 200 m g/dl low riskChol 201-239 mg/dl borderline riskChol 240 mg/dl and greater high risk Result Comment: Chol less than 200 mg/dl low risk Chol 201-239 mg/dl borderline risk Chol 240 mg/dl and greater high risk Performed By: #### L IPID, BMP #### [facility] [address] [place] [address] [place] Cholesterol in LDL Calc [Mas s/Vol]Ordered By: Dedrick Fuller on 08-30-2024 Cholesterol in LDL [Mass/Vol] 134 mg/dL High 0-100 [facility] Comment on above: LDL ATP III CLASSIFI CATIONLDL less than 100 mg/dL OptimalLDL 100-129 mg/dL Near or above optimalLDL 130-159 mg/dL Borderline highLDL 160-189 mg/dL HighLDL greater than 189 mg/dL Very high Cholesterol in VLDL Calc [Ma ss/Vol]Ordered By: Dedrick Fuller on 08-30-2024 Cholesterol in VLDL [Mass/Vol] 46 mg/dL [facility] Creatinine [Mass/volume] in Serum or PlasmaOrdered By: Dedrick Fuller on 08-30-2024 Creatinine [Mass/Vol] 0.75 mg/dL Normal 0.60-1.20 [facility] Comment on above: Performed By: #### L IPID, BMP #### [facility] [address] Glucose [Mass/volume] in Ser um or PlasmaOrdered By: Dedrick Fuller on 08-30-2024 Glucose [Mass/Vol] 95 mg/dL Normal 70-[address] [facility] Comment on above: ADA recommended refe rence rangeRandom Glucose Reference Range is dependent on time and content of last meal. Glucose of more than 200 mg/dL in a nonstressed, ambulatory subject supports the diagnosis of Diabetes Mellitus. Result Comment: Friendly om Glucose Reference Range is dependent on time and content of last meal. Glucose of more than 200 mg/dL in a nonstressed, ambulatory subject supports the diagnosis of Diabetes Mellitus. ADA recommended reference range Performed By: #### L IPID, BMP #### [facility] [address] [place] [id number] [place] Lipid Panelon 08-30-2024 LDL Cholesterol,Calculated 134 [...] #### L IPID, BMP #### [facility] [address] [place] [address] Triglyceride w/Reflex 231 mg/dL High 0-149 The [...] #### L IPID, BMP #### [facility] [address] [place] [address] VLDL CHOLESTEROL 46 mg/dL Normal [facility] Comment on above: Performed By: #### L IPID, BMP #### [address] No Panel InformationOrdered By: Dedrick Fuller on 08-30-2024 Estimated GFR (CKD-EPI) > 60.0 mL/Min [facility] Creatinine Clearance (Chem N/A [facility] Potassium [Moles/volume] in Serum or PlasmaOrdered By: Dedrick Fuller on 08-30-2024 Potassium [Moles/Vol] 4.1 mmol/L Normal 3.5-5.1 [facility] Comment on above: Performed By: #### L IPID, BMP #### [address] Serum or plasma anion gap de terminationOrdered By: Dedrick Fuller on 08-30-2024 Anion gap [Moles/Vol] 13.5 mmol/L Normal 6.0-15.0 [facility] Comment on above: Performed By: #### L IPID, BMP #### [address] Serum or plasma high density lipoprotein (HDL) cholesterol measurementOrdered By: Dedrick Fuller on 08-30-2024 Cholesterol in HDL [Mass/Vol] 38 mg/dL Normal 23-92 [facility] Comment on above: HDL CHOL ATP-III CLA SSIFICATION Cardiovascular RiskHDL > or equal to 60 mg/dL LOWHDL < 40 mg/dL HIGH Result Comment: HDL CHOL ATP-III CLASSIFICATION Cardiovascular Risk HDL > or equal to 60 mg/dL LOW HDL < 40 mg/dL HIGH Performed By: #### L IPID, BMP #### [facility] [address] [place] [address] Serum or plasma total choles terol/high density lipoprotein (HDL) cholesterol mass ratOrdered By: Dedrick Fuller on 08-30-2024 Cholesterol.total/Mirta sterol in HDL [Mass ratio] 5.7 {ratio} Normal <5.0 [facility] Comment on above: Result Comment: PERF ORMED BY: [place] [address] PATHOLOGIST COPYRIGHT MANAGER IRMA MARCELO M.D. Performed By: #### L IPID, BMP #### [address] Sodium [Moles/volume] in Ser um or PlasmaOrdered By: Dedrick Fuller on 08-30-2024 Sodium [Moles/Vol] 140 mmol/L Normal 136-[address] [facility] Comment on above: Performed By: #### L IPID, BMP #### [address] Triglyceride [Mass/volume] i n Serum or PlasmaOrdered By: Dedrick Fuller on 08-30-2024 Triglyceride [Mass/Vol] 231 mg/dL High 0-149 [facility] Comment on above: TRIG ATP III CLASSIF ICATIONTRIG less than 150 mg/dL NormalTRIG 150-199 mg/dL Borderline highTRIG 200-500 mg/dL High TRIG greater than 500 mg/dL Very highStandard traceable to the Center for Disease Conrtrol and Prevention (CDC) test method. Urea nitrogen [Mass/volume] in Serum or PlasmaOrdered By: Dedrick Fuller on 08-30-2024 Urea nitrogen [Mass/Vol] 18 mg/dL Normal 7-25 [facility] Comment on above: Performed By: #### L IPID, BMP #### [address] Coding Summaryon 03-19-2024 Coding Summary HTMLBase 64 JcgtmfqyEIa6nQf+PGhlYWQ +JZ5IYYOaE85liOOnnH4fD5 NMTElOSywgQVBQTElOSyIgb rCfZM2llWUiCGZi IC8+NK2wORQwTagvsETrk0C 6fPH7D86wow0nQBaceJB0FU VrUbZtxvpvs6udmYl2HPzoK mluOyBt QZElcD17OWD7vO41Jt05cBL kiWXuk8cclYf5EaIwINLfUQ K2oWwmULzvf2GuSBNlH83jo YTpq4B8 JOWxuNmqqSAiSdDlhOU5nY6 tTUooxokub7rgqsgxMxl4wc 73rZXiy1D5wXG6L9CcfcD6U GJvbGQg ApsvsPBAvR3gjfebc7tiinb pYwKjLMDiVHc5TJo7UYRvgM pkEbElYD86CUL4OBDqboKbH 2FsLWFs nBfzFcQ9u0E7Cr6YC8BLVkj dF9BHUFOZFIloyAK+PC90cj 32S7JlFxsrLoa4HDGpSWU2r SS1wH0q LIVbIBxke9V3wCO1R4RgupR nnp2ic7fxMBIhPIkbD43gvP Zax0L2RODwaNB7GNOwsUvzB iBzaG93 Oyc+UEMohChho8IjTrior4i dt1ggrVz7FdwzMHVsbmFafI bdGHR6o3FeMq5tLDJgqMA5x FX5rH2g KkBvUdX7TUntD424MdYenIF aWyknY46oW4JjpZD+PHRyPj p4POKskUhrGV6iK9QnSRAjw mctbGVm tMvxHL1hZYAqrjxhILFtjE6 rFTUzG2w9DfMaEyI7QBsqE4 MpBAYxodwfOa26hS5rHsOpJ zL1BUhq B0QuroS4SKOqmREbRScvYCV 0V85vz7O7KODbPFKdVSD5dK S4kU7rpXsomhlxmJLboMnty mVydGlj XIpvBAmrT314TMCzcIfdHfH vZGluZyBEYXRlOiAgMDQvMT kvMjAyNDwvdGQ+EPTsTPX9s WxlPSAn dCWiLXaoWy0qvLerwHufWU5 nTNIzlxcxMXSswR3nFIJiaU JvaZtxUO3cOBZiamlrb013K iAxMHB0 BFNrlDYfH9RjhD5eJiCoXYQ lNIBlN9UekBDgXIfgP942SY wrIuO0OGRuaxMiJ6TvWWZdo WduOiB0 r3W6Ma0Cb1UejrtcJ1LwyHC uAsTfSpkqFDv5H1FoVkyryO I+HO69EGBtNY03FOn9FTT3v WxlPSdi XCXbM8KhuV6tPoXaDYMfBTQ kOyc+PHRhYmxlIHdpZHRoPS xcRBLaLgHcdKozTK7bTq8bI GVyLWNv qTgoeBYbUiDkn1jjKOXwRQf rOR6axWrpS7JzgCF1PMDjv8 u3Yv43H25wD0LziIH+PGNvb IY9kRV0 qW7cItQcLcR1PYyiM411HoW xoAIzDuisc5irw0winJk2Dm K4GIStqqHcrOlnBXN3s2GgL t65E28t IHdpZHRoPSIxNSUiIHZhbGl cjq8weH9tUi6+MHKrmKX2eF D6yM1mJyFcThF4WOxsR316O nRvcCIv Ypnmi5vjb2kejDp0FsOxKEA bfhMjyPcgJQB7b1ElUc57D7 BudVjbm3CwVls1ck75yHQvo 2X1cHU0 A5MtUTNgqtleaXIvsRciYZ1 xIYDxopzpOTLthD4cWUAyT6 t0ArQeGnD3JHwbV0QtqlV9P GJvbGQg OSLwhKSYnX2hlsvqd0yfglg sYuFqAMWwFFo6RYo5KOHoaP vvJkTuTPO6AuW0MTQ6hVAat H1nrAfa crghaD4dZwe+CDW7eGWszZW SMB9sRghjnIL+ESJzOEO0hE zfPPewWJQkpG4nAONrM5a0T iAwLjA1 LNqkP7TtsuK8TNHaqILfAVD uyZOYnA5jorjmd9ujhrcsNd HjVVAdSUx7SPy4ICNwdGvnX iBsZWZ0 HdM8UDL0jUGgtO2asSxjohn djT3bVob+EihtdGjcTQE8JO y0D5MnVli9EUAipQkfMS8hs GFkZGlu Di9leRrohCyeWZ6qFFNswoy cb335NrIsm5zvSOWqqZDvIE fyNPF2B77uv6Z9XFBqLNEmO LQ5gJN4 lF8jfKkhxqyzcMUdgQlphbS slYtpLCdxZJsrK618TEMbnK kgIlQoZZs4C8TxHel3YOHxm NsuDM3x wTUlSUepFm5frRzesHhpKZ9 tRLEaqzcgr221XxUbv2ypHM TzkHNpWGabLNW6T80sa2I1K CMwMDAw OML8uIZ6wS6qmBnabpimtGN mdDsgdmVydGljYWwtYWxpZ2 41DHIcgErzCuUphFu1A5UzI zq4FIKm qAmpBN5dxKTvNDwvPq1rqVl edLgtPV0qQDSxuvzbp801Dn Hpd7wyZNGocDAyKLpcEKI6O 15ts5M1 NEXuYEMaGME0cWU2lE2lzPx nbjogbGVmdDsgdmVydGljYW zgRYfyR260ASOdfXukDbRng GllbnQg NKqgENw9O4KwCgiwzFP+PC9 1SUHbDC98rILkdSWoh4mdoU g3SmVxPNLhTUR1zXxlSQlyv 3JkZXIt P58ocEXfl6T9QXYfoYiazHA sKuJcgMN1qE2dUGghcqcgc8 deggfxKxnqs1bacu43dF80K 29sIHdp ZHRoPSIzMCUiIHZhbGlnbj0 swX7qMs5+YEKfvMS4rGJ1qU 1dTHGhUyK8PEhyY713SeWsp CIvPjxj l0npm8jdmZl1EoD4TGVkqvX kjGwhPTL1x6PjDm17N92bMF dpZHRoPSIyMCUiIHZhbGlnb g7seY1u Ii8+JURtiAE0qAS6sK2vRwO oWrJ4EDgoA100JgToqLYnHz vqV77uU7VqaYS+TUCyXzk7S CBzdHls VI0liCKxKCdmSy8lLZH6TjX tKoIhGWixW8OaHXMlznczzt wxtOM9CTKwJYYgcK62Xl8im DogMTBw dYZGbK3azcgbs4yjjaxuXhH oESMxONy7ZVc1PKNiiBgxNa CxSKG1VyS8AUE3dLPdrK8bn Glnbjog fU8xW1KfBEUquyooTv07hM5 vUcOrXkS0TOlbUll+Q09PTE KZDNPNXBTGRG3KJQ0CA68IU TwvdGQ+ SDEyPXV7kIdzMTinZXUqbS1 aWZXrA8g8MqQsQpO6UBfmH4 MeVSEoirvoNa74zG5sEoUbF mB5ZBjo Y4EitdT5JQNkmUYeMDdqENG 7R18af3G8XUUrELFwFZT9dY W4hA5deViwrvtaiAUghUwjq mVydGlj XUbbKSxwZ330IARvgMvrRdU 1ZyD9CnC9JtC0C8VyVmt7DW RmuJssVD3weNOpSMieTo9ra WdodDog VU6pFKUvilmaLSBleD6kJTG udPEaeDlbEA0eBIWqtzfup6 13WrIeQMM3WDHoeWIwQ2Vyb Y9gLxBo DINlQCMcH0RlyFKuYTkgL48 5BCwbItP0ZTVhhhFtF3KzYD AzyZyuAjT3m6N1Ez83DhLNX WFyczwv dGQ+ULCnJCH4ePnrNTfdHVU vwN1cKWOaG7q8QrMcXjA1GU poK8DyMABexjcsDe25uC8nT iAwLjA1 WBhyR8WnrzH0KKUqkKSmWOn xMRO4G16wz4C0KNAnNNLzAK W5pMK5hL6eiLamuloeeWQlw DsgdmVy hTfeHRdgRIhzO246DUGfbUu nPkZFTUFMRTwvdGQ+PHRkIH Q2sPvnARuvURSdgR6zHRElA 4y1HvHl ZoV6WGmlH3RfEISedotmUp7 0eE0aZdWdGqY7TGuiJ8Ufqt O7MGKgpRDlQIyhVZR6I09fm 2Q9TGGn RNNwPFR9wUI5aZ0hdUtiirv gbGVmdDsgdmVydGljYWwtYW ykF128OLOanWchBiKcHLKwG Z9xiAiv dGQ+CI71kx67B5TeIgpbBkq 0FNHqODQ6rPN2aQ1iQGEgNB fph9S4hAE3Y0EfwdZips4su 2xsYXBz JXdfD11swYLsn3C8CKGqjDQ 4IGMnsTesBeTttO58Uso+PG JzxCwss3GhLlrpf0mxc5qbr Dp6XkMg TDDlqmBiiNpeUYR4e7FtZj9 1E96iLFqaYNKbTTEvUDIkKR YzrIjbcq5srH3mOt2+PGNvb OC0eKJ2 iS7fCxGgYqA4LNycI382XhN ikFIhXkdgb6dpm1mtdSw7Ay WcKWSgttDuqFdaSDI2i8UoV m22X8Rh uQcdg8AmGzu9sh57vTNor3G 2sUJ4T5OkDDOfkaovsMCsqT jjPX6aAXWmsobfPBUwuO0gJ DHhR9i7 CcSvQeM4OJkvX5OvnlB8VHQ zrZToDTTeiKHIyB9vbpiqy8 yumtrhSqFoGHArQJm4CAe6C WFsaWdu PuDdHDP9XoF9IFH0nEWcrM3 soQimbcsovG6nKgu+UGh5c2 feyNAyAR7pbEB0XY24OV15t UKab2S5 kON5Y5UsJTIkxgrkdggmjTE 8MTWpJBSbqF60Op1vaTdgXl 5rDTUiYDR6IXFezKPzL3Xaa N6mRpOr PZKtDLJjY1OviLWlWOgdE36 3PPmvExL3OAJkmmPeU4FyCF FxbMgdQwP8t1Y3Gj0NLT65Z O11MA79 rAOqk8E0vIM2D1EhEZWccec pxmktbFF4ESWsANRsfG66Ea 4msLqpLg3tRXAoXPL6MBHsa CTqF6Mr gH4aThKiEQVtOKDlI4WegNC hZPoxM670HNenXeQ1NXPjfh QjL5IdXCWfjQzqYzT2a7W6S p8KOq51 EW42GY42wCDsj8W7dTN4L7E wTJOkeglsyopwoMC9AYYbEE DdtX30Vo7upVltVn3vODCdF EF3ULNl nNKdE3RxnU2gDiUpDCZmJBA eV5DkzSEvLZwtN331WQpmMv P4CHOvohJbM1PpHEQlqTruJ gZ4b3L8 Pu0VYIbdpsr6C5JsJrtkuLU +VN67KIJfIC90xXNrqNMom1 mwsWg3KmNoVEEtPPM3oCwlW Gfat6Oo ZXI (more content not included)... Normal [facility] Ambulance Noteon 03-17-2024 Ambulance Note [id number]#[id number] IFF Normal [facility] C Urineon 03-17-2024 C Urine Urine Culture ordere d as a result of parameters set on specific urine dip and urine microsopic results. >100,000 cfu/ml Lactobacillus species Normal vaginal oleg isolated 10,000 cfu/ml Corynebacterium species (DIPTHEROID) No YOLANDE performed on this organism No pathogens isolated [facility] Comment on above: Performed By: #### 5 [id number], [id number], [id number] ####[facility] (DEFAULT)[address] [place] [address] .Auto Diff 1on 03-15-2024 Auto Becker % 3 % Normal 1-12 [facility] Comment on above: Performed By: #### 5 [id number], [id number], 2056422656, 97332804, 7659695047, 6506282, 1679370 #### [facility] (DEFAULT) [address] [place] [address] Baso Abs# 0.1 x10 Normal 0.0-0.2 [facility] Comment on above: Performed By: #### 5 [id number], 2237207128, 0916320363, 77044049, 4160272847, 3038996, 7449445 #### [facility] (DEFAULT) [address] [place] [address] Basophils/100 WBC (Bld) 0.7 % Normal 0.2-2.0 [facility] Comment on above: Performed By: #### 5 [id number], 1370728531, 1347998812, 42618865, 8822267262, 2971267, 6521646 #### [facility] (DEFAULT) [address] [place] [address] 12943 Eos Abs# 0.1 x10 Normal 0.0-0.4 [facility] Comment on above: Performed By: #### 5 [id number], 5482455692, 4713210719, 59839685, 0437438368, 1593122, 7320183 #### [facility] (DEFAULT) [address] [place] [address] 99430 Eosinophils/100 WBC (Bld) 0.7 % Low 0.9-4.0 [facility] Comment on above: Performed By: #### 5 [id number], 0019423515, 0088294352, 65258566, 8733366986, 0014999, 2498274 #### [facility] (DEFAULT) [address] [place] [address] 81106 Lymph Abs# 2.2 x10 Normal 1.3-2.9 [facility] Comment on above: Performed By: #### 5 [id number], 6958049083, 7954531222, 79389158, 6032755733, 9945571, 1552179 #### [facility] (DEFAULT) [address] [place] [address] 72286 Lymphocytes/100 WBC (Bld) 14 % Normal 14-48 [facility] Comment on above: Performed By: #### 5 [id number], 3835485699, 6182516755, 39985522, 0972210932, 0031339, 9823855 #### [facility] (DEFAULT) [address] [place] [address] 50239 Becker Abs# 0.5 x10 Normal 0.0-0.8 [facility] Comment on above: Performed By: #### 5 [id number], 0128246008, 9742123655, 09521723, 3512460527, 2080876, 4634459 #### [facility] (DEFAULT) [address] [place] [address] 99089 Neut Abs# 13.5 x10 High 1.5-9.2 [facility] Comment on above: Result Comment: Slid e Reviewed Performed By: #### 5 [id number], 9539912927, 2997977511, 05579401, 9538793764, 3048028, 2242032 #### [facility] (DEFAULT) [address] [place] [address] Neutrophils/100 WBC (Bld) 82 % Normal 44-88 [facility] Comment on above: Performed By: #### 5 [id number], 3132104158, 1109230610, 48504159, 2762466792, 0788961, 6812339 #### [facility] (DEFAULT) [address] [place] [address] CBC w/ Auto Diffon Erythrocyte distribution width (RBC) [Ratio] 13.3 % Normal 11.5-15.0 [facility] Comment on above: Performed By: #### 5 [id number], 1039491870, 7713616248, 47650025, 7082953113, 7976728, 7298039 #### [facility] (DEFAULT) [address] [place] [address] Hematocrit (Bld) [Volume fraction] 45.0 % High 33.7-40.4 [facility] Comment on above: Performed By: #### 5 499342349, 8696306439, 5350975770, 17870532, 7197791533, 1328395, 0862843 #### [facility] (DEFAULT) [address] [place] [address] Hemoglobin (Bld) [Mass/Vol] 15.0 g/dL Normal 11.3-15.9 [facility] Comment on above: Performed By: #### 5 [id number], 6762616891, 8861081908, 35553042, 9726921070, 4458039, 7531750 #### [facility] (DEFAULT) [address] [place] [address] Man Diff? Auto Invalid Interpretation Code [facility] Comment on above: Performed By: #### 5 [id number], 6395008476, 0660146662, 23562013, 8001231924, 8542333, 1978642 #### [facility] (DEFAULT) [address] [place] [address] MCH (RBC) [Entitic mass] 32 pg Normal 24-34 [facility] Comment on above: Performed By: #### 5 396561180, 0481243406, 7541568696, 17413206, 1449442334, 9247326, 9481734 #### [facility] (DEFAULT) [address] [place] [address] 94062 MCHC (RBC) [Mass/Vol] 33 g/dL Normal 26-37 [facility] Comment on above: Performed By: #### 5 [id number], 3855025804, 6033565072, 07258767, 6911851763, 4011855, 5680657 #### [facility] (DEFAULT) [address] [place] [address] 06275 MCV (RBC) [Entitic vol] 95 fL Normal 81-100 [facility] Comment on above: Performed By: #### 5 [id number], 3189745876, 1875244840, 93181988, 6207806440, 6873672, 9898832 #### [facility] (DEFAULT) [address] [place] [address] 88630 Platelet 292 x10 Normal 138-427 [facility] Comment on above: Performed By: #### 5 459125778, 0620803207, 3996753468, 71537986, 9262577421, 6380592, 7084573 #### [facility] (DEFAULT) [address] [place] [address] 56316 Platelet mean volume (Bld) [Entitic vol] 8.7 fL Normal 6.3-10.2 [facility] Comment on above: Performed By: #### 5 [id number], 2691883146, 3964421447, 16831703, 7088964854, 3821435, 8260953 #### [facility] (DEFAULT) [address] [place] [address] 02588 RBC 4.74 x10 Normal 3.70-5.30 [facility] Comment on above: Performed By: #### 5 480501737, 6908334846, 9210331766, 61249414, 9361210666, 6661710, 5721726 #### [facility] (DEFAULT) [address] [place] [address] WBC 16.4 x10 High 3.5-10.5 [facility] Comment on above: Performed By: #### 5 766909371, 8904873390, 9965435834, 22819947, 3093475539, 5873835, 0108880 #### [facility] (DEFAULT) [address] [place] [address] CMP Standardon 03-15-2024 eGFR Non AA >60 Invalid Interpretation Code [facility] Comment on above: Performed By: #### 5 [id number], 0502252754, 9450271736, 12172365, 9144396274, 1046246, 0574618 #### [facility] (DEFAULT) [address] [place] [address] eGFR AA >60 Invalid Interpretation Code [facility] Comment on above: Performed By: #### 5 [id number], 7769664789, 4941622844, 13443524, 2414458920, 4407340, 7033183 #### [facility] (DEFAULT) [address] [place] [address] Albumin [Mass/Vol] 4.1 g/dL Normal 3.5-5.0 [facility] Comment on above: Performed By: #### 5 [id number], 8679591667, 7972046232, 41157868, 5511032351, 0632754, 6579699 #### [facility] (DEFAULT) [address] [place] [address] 22234 Albumin/Globulin [Mass ratio] 1.3 {ratio} Low 1.4-2.6 [facility] Comment on above: Performed By: #### 5 690160156, 5498800889, 9840284813, 03164953, 0817199570, 1778959, 4756789 #### [facility] (DEFAULT) [address] [place] [address] Alk Phos 39 IU/L Normal 32-91 [facility] Comment on above: Performed By: #### 5 835230492, 1950503159, 6189571866, 65801533, 9482829091, 4941367, 8611765 #### [facility] (DEFAULT) [address] [place] [address] 24382 ALT [Catalytic activity/Vol] 32.0 U/L Normal 14.0-54.0 [facility] Comment on above: Performed By: #### 5 949553622, 3652190824, 4635385792, 49648144, 6534068695, 6796065, 9118628 #### [facility] (DEFAULT) [address] [place] [address] 46540 Anion gap [Moles/Vol] 13.0 mmol/L Normal 5.0-19.0 [facility] Comment on above: Performed By: #### 5 705256540, 5545380068, 1866634342, 69858486, 3929211828, 0327558, 7511279 #### [facility] (DEFAULT) [address] [place] [address] 87485 AST [Catalytic activity/Vol] 25 U/L Normal 15-41 [facility] Comment on above: Performed By: #### 5 445095793, 1217119275, 3389594577, 37932226, 8599387161, 5217532, 8106712 #### [facility] (DEFAULT) [address] [place] [address] 33384 Bili Total 1.4 mg/dL High 0.3-1.2 [facility] Comment on above: Performed By: #### 5 371079436, 4093103587, 0729255171, 04354349, 1870472460, 0349591, 9434434 #### [facility] (DEFAULT) [address] [place] [address] 79060 Calcium [Mass/Vol] 8.8 mg/dL Low 8.9-10.3 [facility] Comment on above: Performed By: #### 5 [id number], 6816526741, 0579384949, 56221761, 3080769592, 5184625, 4318971 #### [facility] (DEFAULT) [address] [place] [address] 21401 Chloride [Moles/Vol] 105 mmol/L Normal 101-111 [facility] Comment on above: Performed By: #### 5 801008149, 4320406921, 4752795685, 50860994, 8947321366, 8186724, 4662222 #### [facility] (DEFAULT) [address] [place] [address] 53775 CO2 [Moles/Vol] 24 mmol/L Normal 21-32 [facility] Comment on above: Performed By: #### 5 [id number], 6920188210, 8141097063, 28262000, 7818317707, 7169068, 8379865 #### [facility] (DEFAULT) [address] [place] [address] 20199 Creatinine [Mass/Vol] 0.72 mg/dL Normal 0.60-1.30 [facility] Comment on above: Performed By: #### 5 777733807, 1227723942, 0716270625, 52376676, 1883684746, 7907123, 7680987 #### [facility] (DEFAULT) [address] [place] [address] 05114 Globulin (S) [Mass/Vol] 3.0 g/dL Normal 1.5-4.3 [facility] Comment on above: Performed By: #### 5 494429239, 7071509580, 4488790619, 20652812, 1739613061, 0125744, 0139371 #### [facility] (DEFAULT) [address] [place] [address] 08263 Glucose [Mass/Vol] 124.0 mg/dL High 74.0-118.0 [facility] Comment on above: Performed By: #### 5 548929878, 5796149521, 0844485432, 74904704, 8215609567, 0527877, 4946426 #### [facility] (DEFAULT) [address] [place] [address] 98826 Osmolality 278 mOsm/L Invalid Interpretation Code [facility] Comment on above: Performed By: #### 5 066845975, 1287190248, 2966658205, 07546583, 8544410576, 4059826, 4527260 #### [facility] (DEFAULT) [address] [place] [address] 31620 Potassium [Moles/Vol] 4.0 mmol/L Normal 3.6-5.1 [facility] Comment on above: Performed By: #### 5 [id number], 0653739643, 5236132674, 75326354, 6791638125, 3045246, 0759999 #### [facility] (DEFAULT) [address] [place] [address] 21662 Protein [Mass/Vol] 7.1 g/dL Normal 6.5-8.1 [facility] Comment on above: Performed By: #### 5 232828046, 8545106794, 7014903444, 58885742, 0300649761, 0799164, 5594995 #### [facility] (DEFAULT) [address] [place] [address] 66498 Sodium [Moles/Vol] 138.0 mmol/L Normal 136.0-144.0 [facility] Comment on above: Performed By: #### 5 049568112, 9499111575, 1773357939, 81418922, 1649690643, 3147680, 9243016 #### [facility] (DEFAULT) [address] [place] [address] 94633 Urea nitrogen [Mass/Vol] 15 mg/dL Normal 8-26 [facility] Comment on above: Performed By: #### 5 385723385, 9703763218, 2015716537, 74332003, 5196700835, 3765694, 2893749 #### [facility] (DEFAULT) [address] [place] [address] 71005 Urea nitrogen/Creatinine [Mass ratio] 20.8 mg/mg High 4.6-16.2 [facility] Comment on above: Performed By: #### 5 215756976, 7772424217, 2811665636, 55327752, 2948560516, 8677120, 1200394 #### [facility] (DEFAULT) [address] [place] [address] 21908 Breakpoint Chem Normal [facility] Comment on above: Performed By: #### 5 632058919, 1804306898, 3176073781, 56755685, 1283949687, 9689173, 4667267 #### [facility] (DEFAULT) [address] [place] [address] 57830 ED Clinical Summaryon 2023 ED Clinical Summary [facility] - Emergency Department [address] [place] [address] 87456 ED Clinical Summary PERSON INFORMATION Name: HORACIO KEATING Age: 48 Years Sex: FEMALE : 1975 MRN: Acct#: Visit Reason: Shortness of breath; Anxiety; Blood pressure check; SOB Arrival: 03/15/2024 17:56:51 Discharge: 03/15/2024 20:31:00 LOS: 000 02:35 Check In: 03/15/2024 17:56:51 Checkout:03/15/2024 20:31:00 Address: [address] [place] [address] PCP: SAMI MCCARTY PROVIDER INFORMATION Provider Role Assigned Unassigned Nicola Neff DO ED Provider 03/15/2024 18:07:25 Solange MALHOTRA, Shanika Lawton ED Nurse 03/15/2024 18:08:57 Joanna Angeles PA[employer]ER SANDB[employer]ER Nurse 03/15/2024 19:24:01 VITALS INFORMATION Vital Sign [...] Physical Exa (more content not included)... Normal [facility] ED Note - Physicianon 2023 ED Note [...] lymphadenopathy. Psychiatric: (more content not included)... Normal [facility] ED Note-Nursingon 03-15-2024 ED Note-Nursing Patient presents to the ER via [facility] for shortness of breath, anxiety. Patient [...] 12 lead was regular in rate Normal [facility] ED Patient Summaryon 024 ED Patient Summary [facility] - Emergency Department [address] [place] [address] PATIENT DISCHARGE INSTRUCTIONS Patient Information Name: HORACIO KEATING Age: 48 Years Date of : 1975 Reason For Visit: Shortness of breath; Anxiety; Blood pressure check; SOB Arrival Time: 03/15/2024 17:56:51 Primary Care Physician: SAMI MCCARTY Attending Physician: Nicola Neff DO Comment: Visit Diagnosis: Diagnoses This Visit Anxiety ([id number]) Blood pressure check ([id number]) Hypertension (I10) Panic attack (F41.0) Shortness of breath ([id number]) Urinary tract infection (N39.0) The Pharmacy at [facility] is open Friday through Friday [...] alcohol and/or drug addiction problems; contact the [facility] 23/06 Crisis Hotline -Text 4HRWS dw [phone]. If you received any narcotics, sedation, or [...] legal documents With: Address: When: SAMI MCCARTY [address] [place] [address] [place] [address] Business (1) Within 3 to 5 days Comments: Call for follow up appointment Return if symptoms worsen Medication Information: The exam and treatment you received today in the [facility] Emergency Department were for an urgent problem and are not intended as complete care. It is important for you to follow up with a doctor, nurse practitioner, or physician?s loan officer assistant for ongoing care. If your symptoms [...] so we can reach you if necessary. [facility] Emergency Department has provided you with a complete list of medications post discharge. Please inform your line out man/provider of your visit and for further instruction [...] Vitals an (more content not included)... Normal [facility] 03-15-2024 Tube Collected Yes Invalid Interpretation Code [facility] Comment on above: Performed By: #### 5 [id number], 2321802240, 5195297062, 27644095, 5699495939, 0523920, 4735677 #### [facility] (DEFAULT) [address] [place] [address] Extra [facility] 03-15-2024 Tube Collected Yes Invalid Interpretation Code [facility] Comment on above: Performed By: #### 5 [id number], 3380546071, 8511849338, 55424036, 7822450244, 1452918, 5843848 #### [facility] (DEFAULT) [address] [place] [address] 17197 PTon 03-15-2024 INR Coag (PPP) [Relative time] 0.94 {INR} Normal 0.91-1.11 [facility] Comment on above: Performed By: #### 5 [id number], 2982373915, 5266242132, 61125467, 5340112679, 3854107, 5859213 #### [facility] (DEFAULT) [address] [place] [address] PT 9.8 second(s) Normal 9.7-11.8 [facility] Comment on above: Performed By: #### 5 [id number], 8506898296, 3849442974, 33863287, 5350167624, 6699109, 0871104 #### [facility] (DEFAULT) [address] [place] [address] TnI HSon 03-15-2024 Troponin I High Sensitivity 7.7 pg/mL Normal <=15.0 [facility] Comment on above: Performed By: #### 5 [id number], 7463385722, 6558887356, 29894831, 3195583027, 7896752, 7860573 #### [facility] (DEFAULT) [address] [place] [address] UA Eeseu9gg 03-15-2024 UA Amorph. 1+ Normal [facility] Comment on above: Order Comment: Urina lysis Microscopic order added on by [employer] Expert Rules system. Performed By: #### 5 [id number], 0277855332, 9522808 ####[facility] (DEFAULT)[address] [place] [address] 91253 UA Bacteria 3+ Normal [facility] Comment on above: Order Comment: Urina lysis Microscopic order added on by [employer] Rules system. Performed By: #### 5 [id number], 9744005691, 0918858 ####[facility] (DEFAULT)[address] [place] [address] 04789 UA Mucous 1+ Normal [facility] Comment on above: Order Comment: Urina lysis Microscopic order added on by [employer] Rules system. Performed By: #### 5 [id number], 0666535918, 0062006 ####[facility] (DEFAULT)[address] [place] [address] 50773 UA RBC 3-5 [facility] Comment on above: Order Comment: Urina lysis Microscopic order added on by Discern Expert Rules system. Performed By: #### 5 [id number], 2859635972, 9028990 ####[facility] (DEFAULT)[address] [place] [address] UA Renal Epi Rare [facility] Comment on above: Order Comment: Urina lysis Microscopic order added on by Dis[employer] Expert Rules system. Performed By: #### 5 [id number], 3718253824, 5601009 ####[facility] (DEFAULT)[address] [place] [address] UA Squam Epi Many [facility] Comment on above: Order Comment: Urina lysis Microscopic order added on by [employer] Expert Rules system. Performed By: #### 5 [id number], 2461665972, 1031941 ####[facility] (DEFAULT)[address] [place] [address] UA WBC 3-5 [facility] Comment on above: Order Comment: Urina lysis Microscopic order added on by Dis[employer] Expert Rules system. Performed By: #### 5 [id number], 8274877110, 4361449 ####[facility] (DEFAULT)[address] [place] [address] UA w Culture if Ind Standard on 03-15-2024 Breakpoint UA [facility] Comment on above: Performed By: #### 5 [id number], 5632922839, 8001570 ####[facility] (DEFAULT)[address] [place] [address] Color (U) Yellow [facility] Comment on above: Performed By: #### 5 [id number], 5742816178, 4728493 ####[facility] (DEFAULT)[address] [place] [address] Culture? Indicated Invalid Interpretation Code [facility] Comment on above: Result Comment: Resu lt created by rule GL_MAGR_ADD_UA_CULT Result created by rule GL_MAGR_ADD_UA_CULT Result created by rule GL_MAGR_ADD_UA_CULT1 Result created by rule GL_MAGR_ADD_UA_CULT Performed By: #### 5 [id number], 6555163262, 7743280 ####[facility] (DEFAULT)[address] [place] [address] 51789 Glucose (U) [Mass/Vol] Negative Normal [facility] Comment on above: Performed By: #### 5 [id number], 0281369932, 4790749 ####[facility] (DEFAULT)[address] [place] [address] 76943 Ketones Ql (U) Negative Normal [facility] Comment on above: Performed By: #### 5 [id number], 6538579135, 6671709 ####[facility] (DEFAULT)[address] [place] [address] 88863 Micro? Indicated Invalid Interpretation Code [facility] Comment on above: Result Comment: Resu lt created by rule GL_MAGR_ADD_UA_MICRO Performed By: #### 5 [id number], [id number], 9088734 ####[facility] (DEFAULT)[address] [place] [address] 60153 UA Bilirubin Negative Normal [facility] Comment on above: Performed By: #### 5 [id number], 5924316645, 8902034 ####[facility] (DEFAULT)[address] [place] [address] 28948 UA Blood TRACE Abnormal NEGATIVE [facility] Comment on above: Performed By: #### 5 [id number], 9957130927, 1653688 ####[facility] (DEFAULT)[address] [place] [address] 42036 UA Clarity SL CLOUDY Abnormal CLEAR [facility] Comment on above: Performed By: #### 5 4704966, 2213766319, 2476005 ####[facility] (DEFAULT)[address] [place] [address] 39753 UA Leuk Est LARGE Abnormal NEGATIVE [facility] Comment on above: Performed By: #### 5 [id number], 3237599500, 4764637 ####[facility] (DEFAULT)[address] [place] [address] 88829 UA Nitrite Negative Normal NEGATIVE [facility] Comment on above: Performed By: #### 5 5183399, 4135387171, 0978422 ####[facility] (DEFAULT)[address] [place] [address] 79598 UA pH 6.0 Normal 5-8 [facility] Comment on above: Performed By: #### 5 5916989, [id number], 0059725 ####[facility] (DEFAULT)[address] [place] [address] 39832 UA Protein Negative Normal NEGATIVE [facility] Comment on above: Performed By: #### 5 6295361, [id number], [id number] ####[facility] (DEFAULT)[address] [place] [address] 14770 UA Spec Grav 1.015 Normal 1.001-1.035 [facility] Comment on above: Performed By: #### [id number] ####[facility] (DEFAULT)[address] [place] [address] 39221 UA Urobilinogen 0.2 mg/dL Normal 0.2-1.0 [facility] Comment on above: Performed By: #### [id number] ####[facility] (DEFAULT)[address] [place] [id number] Urine Source Clean Catch Normal [facility] Comment on above: Performed By: #### [id number] ####[facility] (DEFAULT)[address] [place] [address] [id number] XR Chest 1 View Frontalon XR Chest [...] MD 03/15/24 7:34 pm Technologist: Lizzy BRICEÑO [facility] Calcium [Mass/volume] in Ser um or PlasmaOrdered By: Dedrick Fuller on 08-15-2023 Calcium [Mass/Vol] 9.1 mg/dL 8.6-10.[address] [facility] Carbon dioxide, total [Moles /volume] in Serum or PlasmaOrdered By: Dedrick Fuller on 08-15-2023 CO2 [Moles/Vol] 26.7 mmol/L 21.0-31.0 [facility] Chloride [Moles/volume] in S altagracia or PlasmaOrdered By: Dedrick Fuller on 08-15-2023 Chloride [Moles/Vol] 107 mmol/L 98-107 [facility] Cholesterol [Mass/volume] in Serum or PlasmaOrdered By: Dedrick Fuller on 08-15-2023 Cholesterol [Mass/Vol] 166 mg/dL 140-200 [facility] Comment on above: Chol less than 200 m g/dl low riskChol 201-239 mg/dl borderline riskChol 240 mg/dl and greater high risk Cholesterol in LDL Calc [Mas s/Vol]Ordered By: Dedrick Fuller on 08-15-2023 Cholesterol in LDL [Mass/Vol] 95 mg/dL 0-100 [facility] Comment on above: LDL ATP III CLASSIFI CATIONLDL less than 100 mg/dL OptimalLDL 100-129 mg/dL Near or above optimalLDL 130-159 mg/dL Borderline highLDL 160-189 mg/dL HighLDL greater than 189 mg/dL Very high Cholesterol in VLDL Calc [Ma ss/Vol]Ordered By: Dedrick Fuller on 08-15-2023 Cholesterol in VLDL [Mass/Vol] 32 mg/dL [facility] Creatinine [Mass/volume] in Serum or PlasmaOrdered By: Dedrick Fuller on 08-15-2023 Creatinine [Mass/Vol] 0.77 mg/dL 0.60-1.20 [facility] Glucose [Mass/volume] in Ser um or PlasmaOrdered By: Dedrick Fuller on 08-15-2023 Glucose [Mass/Vol] 97 mg/dL 70-[address] [facility] Comment on above: ADA recommended refe rence rangeRandom Glucose Reference Range is dependent on time and content of last meal. Glucose of more than 200 mg/dL in a nonstressed, ambulatory subject supports the diagnosis of Diabetes Mellitus. No Panel InformationOrdered By: Dedrick Fuller on 08-15-2023 Estimated GFR (CKD-EPI) > 60.0 mL/Min [facility] Creatinine Clearance (Chem N/A [facility] Potassium [Moles/volume] in Serum or PlasmaOrdered By: Dedrick Fuller on 08-15-2023 Potassium [Moles/Vol] 4.0 mmol/L 3.5-5.1 [facility] Serum or plasma anion gap de terminationOrdered By: Dedrick Fuller on 08-15-2023 Anion gap [Moles/Vol] 10.3 mmol/L 6.0-15.0 [facility] Serum or plasma high density lipoprotein (HDL) cholesterol measurementOrdered By: Dedrick Fuller on 08-15-2023 Cholesterol in HDL [Mass/Vol] 39 mg/dL 23-92 [facility] Comment on above: HDL CHOL ATP-III CLA SSIFICATION Cardiovascular RiskHDL > or equal to 60 mg/dL LOWHDL < 40 mg/dL HIGH Serum or plasma total choles terol/high density lipoprotein (HDL) cholesterol mass ratOrdered By: Dedrick Fuller on 08-15-2023 Cholesterol.total/Mirta sterol in HDL [Mass ratio] 4.3 {ratio} <5.0 [facility] Sodium [Moles/volume] in Ser um or PlasmaOrdered By: Dedrick Fuller on 08-15-2023 Sodium [Moles/Vol] 140 mmol/L 136-[address] [facility] Triglyceride [Mass/volume] i n Serum or PlasmaOrdered By: Dedrick Fuller on 08-15-2023 Triglyceride [Mass/Vol] 162 mg/dL 0-149 [facility] Comment on above: TRIG ATP III CLASSIF ICATIONTRIG less than 150 mg/dL NormalTRIG 150-199 mg/dL Borderline highTRIG 200-500 mg/dL High TRIG greater than 500 mg/dL Very highStandard traceable to the Center for Disease Conrtrol and Prevention (CDC) test method. Urea nitrogen [Mass/volume] in Serum or PlasmaOrdered By: Dedrick Fuller on 08-15-2023 Urea nitrogen [Mass/Vol] 10 mg/dL 725 [facility] GTT 2 HRon 11-09-2022 Glucose [Mass/Vol] 107 mg/dL Critically high 74-106 [facility] Comment on above: Performed By: #### U LG, CRP #### [facility] [address] [address] [address] Soo Donnelly Glucose [Mass/Vol] 152 mg/dL Normal [facility] Comment on above: Performed By: #### U LG, CRP #### [facility] [address] [address] [address] Soo Donnelly Glucose [Mass/Vol] 121 mg/dL Normal [facility] Comment on above: Performed By: #### U LG, CRP #### [facility] [address] ABD/PELV W CONon [...] ELENA SAUCEDA Date: 2022-10-01 10:31 Normal [facility] CBC AUTO DIFFon 09-18-2022 BASO # 0.0 103/ul Normal 0.0-0.1 [facility] Comment on above: Performed By: #### A NAD #### [facility] [address] [place] [address] Dr. Soo Donnelly Basophils/100 WBC (Bld) 0.4 % Normal 0.2-2.0 [facility] Comment on above: Performed By: #### A NAD #### [facility] [address] [address] [address] Soo Donnelly EO # 0.1 103/ul Normal 0.0-0.7 [facility] Comment on above: Performed By: #### A NAD #### [facility] [address] [address] [address] Soo Donnelly Eosinophils/100 WBC (Bld) 1.8 % Normal 0.9-7.0 [facility] Comment on above: Performed By: #### A NAD #### [facility] [address] [address] [address] Soo Donnelly Erythrocyte distribution width (RBC) [Ratio] 11.9 % Normal 11.0-15.0 [facility] Comment on above: Performed By: #### A NAD #### [facility] [address] [place] [address] Dr. Soo Donnelly Hematocrit (Bld) [Volume fraction] 43.9 % Normal 36.0-48.0 [facility] Comment on above: Performed By: #### A NAD #### [facility] [address] [place] [address] Dr. Soo Donnelly Hemoglobin (Bld) [Mass/Vol] 14.6 g/dL Normal 12.0-16.0 [facility] Comment on above: Performed By: #### A NAD #### [facility] [address] [place] [address] Dr. Soo Donnelly IG # 0.01 10e3/ul Normal 0.00-0.03 [facility] Comment on above: Performed By: #### A NAD #### [facility] [address] [place] [address] Dr. Soo Donnelly IG % 0.1 % Normal 0.0-0.5 [facility] Comment on above: Performed By: #### A NAD #### [facility] [address] [place] [address] Dr. Soo Donnelly LYMPH # 2.7 103/ul Normal 1.2-3.8 [facility] Comment on above: Performed By: #### A NAD #### [facility] [address] [place] [address] Dr. Soo Donnelly Lymphocytes/100 WBC (Bld) 39.9 % Normal 20.5-60.0 [facility] Comment on above: Performed By: #### A NAD #### [facility] [address] [place] [address] Dr. Soo Donnelly MANUAL DIFF REQ NO Normal [facility] Comment on above: Performed By: #### A NAD #### [facility] [address] [place] [address] Dr. Soo Donnelly MCH (RBC) [Entitic mass] 31.7 pg Normal 26.7-34.0 [facility] Comment on above: Performed By: #### A NAD #### [facility] [address] [place] [address] Dr. Soo Donnelly MCHC (RBC) [Mass/Vol] 33.3 g/dL Normal 29.9-35.2 [facility] Comment on above: Performed By: #### A NAD #### [facility] [address] [address] [address] Soo Donnelly MCV (RBC) [Entitic vol] 95.4 fL Normal 81.0-99.0 [facility] Comment on above: Performed By: #### A NAD #### [facility] [address] [address] [address] Soo Donnelly MONO # 0.4 103/ul Normal 0.3-0.8 [facility] Comment on above: Performed By: #### A NAD #### [facility] [address] [place] [address] Dr. Soo Donnelly Monocytes/100 WBC (Bld) 5.9 % Normal 1.7-12.0 [facility] Comment on above: Performed By: #### A NAD #### [facility] [address] [place] [address] Dr. Soo Donnelly NEUT # 3.5 103/ul Normal 1.4-6.5 [facility] Comment on above: Performed By: #### A NAD #### [facility] [address] [place] [address] Dr. Soo Donnelly Neutrophils/100 WBC (Bld) 51.9 % Normal 43.0-75.0 [facility] Comment on above: Performed By: #### A NAD #### [facility] [address] [place] [address] Dr. Soo Donnelly Platelet mean volume (Bld) [Entitic vol] 10.8 fL Normal 9.5-13.5 [facility] Comment on above: Performed By: #### A NAD #### [facility] [address] [place] [address] Dr. Soo Donnelly PLT 220 103/ul Normal 150-450 [facility] Comment on above: Performed By: #### A NAD #### [facility] [address] [place] [address] Dr. Soo Donnelly RBC 4.60 106/ul Normal 4.20-5.40 [facility] Comment on above: Performed By: #### A NAD #### [facility] [address] [place] [address] Dr. Soo Donnelly WBC 6.8 103/ul Normal 4.0-11.0 [facility] Comment on above: Performed By: #### A NAD #### [facility] [address] [address] [address] Soo CORLEY URINE PROFILEon 2 Bilirubin Ql (U) Negative Normal NEGATIVE [facility] Comment on above: Performed By: #### U LG, CRP #### [facility] [address] [address] [address] Soo Donnelly Clarity (U) CLEAR Normal CLEAR [facility] Comment on above: Performed By: #### U LG, CRP #### [facility] [address] [place] [address] Dr. Soo Donnelly Color (U) LT. YELLOW Normal YELLOW [facility] Comment on above: Performed By: #### U LG, CRP #### [facility] [address] [place] [address] Dr. Soo CORTEZ A micrscopic examination will be performed if indicated. Normal [facility] Comment on above: Performed By: #### U LG, CRP #### [facility] [address] [place] [address] Dr. Soo Donnelly Glucose Ql (U) Negative Normal NEGATIVE [facility] Comment on above: Performed By: #### U LG, CRP #### [facility] [address] [address] [address] Soo Donnelly Hemoglobin Ql (U) Negative Normal NEGATIVE [facility] Comment on above: Performed By: #### U LG, CRP #### [facility] [address] [address] [address] Soo Donnelly Ketones Ql (U) Negative Normal NEGATIVE [facility] Comment on above: Performed By: #### U LG, CRP #### [facility] [address] [place] [address] Dr. Soo Donnelly LEUKOCYTES Negative Normal NEGATIVE [facility] Comment on above: Performed By: #### U LG, CRP #### [facility] [address] [place] [address] Dr. Soo Donnelly Nitrite Ql (U) Negative Normal NEGATIVE [facility] Comment on above: Performed By: #### U LG, CRP #### [facility] [address] [place] [address] Dr. Soo Donnelly pH (U) 6.0 [pH] Normal 5-9 [facility] Comment on above: Performed By: #### U LG, CRP #### [facility] [address] [place] [address] Dr. Soo Donnelly SPEC GRAVITY 1.015 Normal 1.005-<=1.0 25 [facility] Comment on above: Performed By: #### U LG, CRP #### [facility] [address] [place] [address] Dr. Soo Donnelly UA PROTEIN Negative Normal NEGATIVE/ TRACE [facility] Comment on above: Performed By: #### U LG, CRP #### [facility] [address] [place] [address] Dr. Soo Donnelly UR MICRO IND NOT INDICATED Normal [facility] Comment on above: Performed By: #### U LG, CRP #### [facility] [address] [place] [address] Dr. Soo Donnelly Urobilinogen Qn (U) 0.2 {Roma'U}/dL Normal 0.2 - 1. 0 [facility] Comment on above: Performed By: #### U LG, CRP #### [facility] [address] [place] [address] Dr. Soo Donnelly PROF CHEM 8 (BAS METB)on Anion gap [Moles/Vol] 10.2 mmol/L Normal [facility] Comment on above: Performed By: #### B MP #### [facility] [address] [place] [address] Dr. Soo Donnelly Calcium [Mass/Vol] 8.7 mg/dL Normal 8.5-10.1 [facility] Comment on above: Performed By: #### B MP #### [facility] [address] [place] [address] Dr. Soo Donnelly Chloride [Moles/Vol] 103 mmol/L Normal 98-107 [facility] Comment on above: Performed By: #### B MP #### [facility] [address] [address] [address] Soo Donnelly CO2 [Moles/Vol] 27.9 mmol/L Normal 21.0-32.[address] [facility] Comment on above: Performed By: #### B MP #### [facility] [address] [address] [address] Soo Donnelly Creatinine [Mass/Vol] 0.80 mg/dL Normal 0.55-1.02 [facility] Comment on above: Performed By: #### B MP #### [facility] [address] [place] [address] Dr. Soo Donnelly EGFR-AF NEW ZEALANDER >60 Normal >=[address] [facility] Comment on above: Performed By: #### B MP #### [facility] [address] [place] [address] Dr. Soo Donnelly EGFR-NON AF NEW ZEALANDER >60 Normal >=60 [facility] Comment on above: Performed By: #### B MP #### [facility] [address] [address] [address] Soo Donnelly Glucose [Mass/Vol] 103 mg/dL Normal 74-106 [facility] Comment on above: Performed By: #### B MP #### [facility] [address] [place] [address] Dr. Soo Donnelly Potassium [Moles/Vol] 4.1 mmol/L Normal 3.5-5.1 [facility] Comment on above: Performed By: #### B MP #### [facility] [address] [place] [address] Dr. Soo Donnelly Sodium [Moles/Vol] 137 mmol/L Normal 136-145 [facility] Comment on above: Performed By: #### B MP #### [facility] [address] [address] [address] Soo Donnelly Urea nitrogen [Mass/Vol] 11.0 mg/dL Normal 7.0-18.0 [facility] Comment on above: Performed By: #### B MP #### [facility] [address] [place], [place] [address] Dr. Soo Donnelly Urea nitrogen/Creatinine [Mass ratio] 13.8 mg/mg Normal [facility] Comment on above: Performed By: #### B MP #### [facility] [address] [place], [place] [address] Dr. Soo Donnelly XR KUB 1 VIEWon [...] ELENA SAUCEDA Date: 2022-09-18 12:12 Normal [facility] MAMM SCREEN 3D DEAN CADon 09-12-2022 MG MAMM SCREEN 3D DEAN CAD Patient: HORACIO KEATING Exam Date: 09/12/2022 : 1975 Gender:F Ordering : DR DELGADO MURILLO . Admission #: [id number] Family : Order #: [id number] CLICK HERE TO VIEW EXAM RADIOLOGY REPORT [...] ovarian cancer at age 77. LOCATION: [facility] BREAST COMPOSITION: Scattered areas fibroglandular density. [...] MD on 09/13/2022 at 07:46 Normal [facility] INSULINon 07-20-2022 Insulin 25.5 uIU/mL Critically high 2.6-24.9 [facility] Comment on above: Performed By: #### U LG, CRP #### [facility] [address] [place] [address] Dr. Soo Donnelly T4 LABCORPon 07-20-2022 T4 [Mass/Vol] 7.4 ug/dL Normal 4.5-12.0 [facility] Comment on above: Performed By: #### A NAD #### [facility] [address] [place] [address] Dr. Soo Donnelly CBC W MANUAL DIFFon 07-19-20 22 ATYPICAL LYMPH # Normal [facility] Comment on above: Performed By: #### B UN, CREA #### [facility] [address] [place] [address] Dr. Soo Donnelly ATYPICAL LYMPH % Normal [facility] Comment on above: Performed By: #### B UN, CREA #### [facility] [address] [place] [address] Dr. Soo Donnelly BAND # Normal 0.0-0.3 [facility] Comment on above: Performed By: #### B UN, CREA #### [facility] [address] [place] [address] Dr. Soo Donnelly BAND % Normal 0-5 [facility] Comment on above: Performed By: #### B UN, CREA #### [facility] [address] [place] [address] Dr. Soo Donnelly BASOM # 0.00 103/ul Normal 0.00-0.10 [facility] Comment on above: Performed By: #### B UN, CREA #### [facility] [address] [place] [address] Dr. Soo Donnelly BASOM % 0.0 % Critically low 0.2-2.0 [facility] Comment on above: Performed By: #### B UN, CREA #### [facility] [address] [place] [address] Dr. Soo Donnelly BLAST # Normal [facility] Comment on above: Performed By: #### B UN, CREA #### [facility] [address] [place] [address] Dr. Soo Donnelly BLAST % Normal [facility] Comment on above: Performed By: #### B UN, CREA #### [facility] [address] [place] [address] Dr. Soo Donnelly CORRECTED WBC Normal 4.0-11.0 [facility] Comment on above: Performed By: #### B UN, CREA #### [facility] [address] [place] [address] Dr. Soo Donnelly EOS # 0.31 103/ul Normal 0.00-0.70 [facility] Comment on above: Performed By: #### B UN, CREA #### [facility] [address] [place] [address] Dr. Soo Donnelly EOS% 2.0 % Normal 0.9-7.0 [facility] Comment on above: Performed By: #### B UN, CREA #### [facility] [address] [place] [address] Dr. Soo Donnelly HCT 41.6 % Normal 36.0-48.0 [facility] Comment on above: Performed By: #### B UN, CREA #### [facility] [address] [place] [address] Dr. Soo Donnelly HGB 13.8 g/dl Normal 12.0-16.0 [facility] Comment on above: Performed By: #### B UN, CREA #### [facility] [address] [place] [address] Dr. Soo Donnelly LYMPHM # 5.27 103/ul Critically high 1.20-3.[address] [facility] Comment on above: Performed By: #### B UN, CREA #### [facility] [address] [place] [address] Dr. Soo Donnelly LYMPHM% 34.0 % Normal 20.5-60.0 [facility] Comment on above: Performed By: #### B UN, CREA #### [facility] [address] [place] [address] Dr. Soo Donnelly MCH 31.5 pg Normal 26.7-34.0 [facility] Comment on above: Performed By: #### B UN, CREA #### [facility] [address] [place] [address] Dr. Soo Donnelly MCHC 33.2 g/dl Normal 29.9-35.2 [facility] Comment on above: Performed By: #### B UN, CREA #### [facility] [address] [place] [address] Dr. Soo Donnelly MCV 95.0 fL Normal 81.0-99.0 [facility] Comment on above: Performed By: #### B UN, CREA #### [facility] [address] [place] [address] Dr. Soo Donnelly METAMYELOCYTE # Normal [facility] Comment on above: Performed By: #### B UN, CREA #### [facility] [address] [place] [address] Dr. Soo Donnelly METAMYELOCYTE % Normal [facility] Comment on above: Performed By: #### B UN, CREA #### [facility] [address] [place] [address] Dr. Soo Donnelly MONOM# 0.93 103/ul Critically high 0.30-0.80 [facility] Comment on above: Performed By: #### B UN, CREA #### [facility] [address] [place] [address] Dr. Soo Donnelly MONOM% 6.0 % Normal 1.7-12.0 [facility] Comment on above: Performed By: #### B UN, CREA #### [facility] [address] [place] [address] Dr. Soo Donnelly MPV 10.1 fL Normal 9.5-13.5 [facility] Comment on above: Performed By: #### B UN, CREA #### [facility] [address] [place] [address] Dr. Soo Donnelly MYELOCYTE # Normal [facility] Comment on above: Performed By: #### B UN, CREA #### [facility] [address] [place] [address] Dr. Soo Donnelly MYELOCYTE % Normal [facility] Comment on above: Performed By: #### B UN, CREA #### [facility] [address] [place] [address] Dr. Soo Donnelly NRBC Normal [facility] Comment on above: Performed By: #### B UN, CREA #### [facility] [address] [place] [address] Dr. Soo Donnelly PLT 260 103/ul Normal 150-450 [facility] Comment on above: Performed By: #### B UN, CREA #### [facility] [address] [place] [address] Dr. Soo Donnelly RBC 4.38 106/ul Normal 4.20-5.40 [facility] Comment on above: Performed By: #### B UN, CREA #### [facility] [address] [place] [address] Dr. Soo Donnelly RDW 12.5 % Normal 11.0-15.0 [facility] Comment on above: Performed By: #### B UN, CREA #### [facility] [address] [place] [address] Dr. Soo Donnelly SEG # 8.99 103/ul Critically high 1.40-6.50 [facility] Comment on above: Performed By: #### B UN, CREA #### [facility] [address] [place] [address] Dr. Soo Donnelly SEG % 58.0 % Normal 43.0-75.0 [facility] Comment on above: Performed By: #### B UN, CREA #### [facility] [address] [place] [address] Dr. Soo Donnelly WBC 15.5 103/ul Critically high 4.0-11.[address] [facility] Comment on above: Performed By: #### B UN, CREA #### [facility] [address] [address] [address] Soo Donnelly FREE T3on 07-19-2022 FREE T3 2.62 pg/mlL Normal 2.18-3.98 [facility] Comment on above: Performed By: #### U LG, CRP #### [facility] [address] [address] [address] Soo Donnelly GLYCOHEMOGLOBIN A1Con 2021 ADA RECOMMENDATION SEE BELOW Normal [facility] Comment on above: Result Comment: ADA RECOMMENDED LIMIT 4.0 - 6.0 ADA THERAPEUTIC TARGET < 7.0 ACTION SUGGESTED > 7.0 Performed By: #### U LG, CRP #### [facility] [address] [place] [address] Dr. Soo Donnelly Glucose [Mass/Vol] 137 mg/dL Normal [facility] Comment on above: Performed By: #### U LG, CRP #### [facility] [address] [place] [address] Dr. Soo Donnelly HbA1c (Bld) [Mass fraction] 6.4 % Critically high 4.5-6.2 [facility] Comment on above: Performed By: #### U LG, CRP #### [facility] [address] [place] [address] Dr. Soo Donnlely LIPID PROFILEon 07-19-2022 CHOL-HDL RATIO NORM SEE BELOW Normal [facility] Comment on above: Result Comment: 3.3 - 4.4 LOW RISK 4.4 - 7.1 AVERAGE RISK 7.1 - 11.0 MODERATE RISK >11.0 HIGH RISK Performed By: #### U LG, CRP #### [facility] [address] [place] [address] Dr. Soo Donnelly Cholesterol [Mass/Vol] 226 mg/dL Critically high <=200 [facility] Comment on above: Performed By: #### U LG, CRP #### [facility] [address] [place] [address] Dr. Soo Donnelly Cholesterol in HDL [Mass/Vol] 33 mg/dL Critically low 40-60 [facility] Comment on above: Performed By: #### U LG, CRP #### [facility] [address] [address] [address] Soo Donnelly Cholesterol in LDL [Mass/Vol] 135.2 mg/dL Normal [facility] Comment on above: Performed By: #### U LG, CRP #### [facility] [address] [address] [address] Soo Donnelly Cholesterol.total/Mirta sterol in HDL [Mass ratio] 6.8 {ratio} Normal [facility] Comment on above: Performed By: #### U LG, CRP #### [facility] [address] [address] [address] Soo Donnelly HDL NORMAL > or = 60 mg/dl - LO W CARDIOVASCULAR RISK <40 mg/dl - HIGH CARDIOVASCULAR RISK Normal [facility] Comment on above: Performed By: #### U LG, CRP #### [facility] [address] [address] [address] Soo Donnelly LDL CALC NORMAL SEE BELOW Normal [facility] Comment on above: Result Comment: <100 mg/dl OPTIMAL 100 - 129 mg/dl NEAR OR ABOVE OPTIMAL 130 - 159 mg/dl BORDERLINE HIGH 160 - 189 mg/dl HIGH >190 mg/dl VERY HIGH Performed By: #### U LG, CRP #### [facility] [address] [address] [address] Soo Donnelly Triglyceride [Mass/Vol] 289 mg/dL Critically high <=150 [facility] Comment on above: Performed By: #### U LG, CRP #### [facility] [address] [address] [address] Soo Donnelly VLDL CALC 57.8 mg/dL Normal [facility] Comment on above: Performed By: #### U LG, CRP #### [facility] [address] [address] [address] Soo Donnelly PROF 14(COMP METB)on 022 Albumin [Mass/Vol] 3.2 g/dL Critically low 3.4-5.0 [facility] Comment on above: Performed By: #### U LG, CRP #### [facility] [address] [address] [address] Soo Donnelly Albumin/Globulin [Mass ratio] 1.1 {ratio} Normal [facility] Comment on above: Performed By: #### U LG, CRP #### [facility] [address] [address] [address] Soo Donnelly ALP [Catalytic activity/Vol] 41 U/L Critically low 46-116 [facility] Comment on above: Performed By: #### U LG, CRP #### [facility] [address] [address] [address] Soo Donnelly ALT [Catalytic activity/Vol] 46 U/L Normal 14-59 [facility] Comment on above: Performed By: #### U LG, CRP #### [facility] [address] [address] [address] Soo Donnelly Anion gap [Moles/Vol] 9.3 mmol/L Normal [facility] Comment on above: Performed By: #### U LG, CRP #### [facility] [address] [address] [address] Soo Donnelly AST [Catalytic activity/Vol] 18 U/L Normal 15-37 [facility] Comment on above: Performed By: #### U LG, CRP #### [facility] [address] [address] [address] Soo Donnelly Bilirubin [Mass/Vol] 0.7 mg/dL Normal 0.2-1.0 [facility] Comment on above: Performed By: #### U LG, CRP #### [facility] [address] [address] [address] Soo Donnelly Calcium [Mass/Vol] 8.1 mg/dL Critically low 8.5-10.1 [facility] Comment on above: Performed By: #### U LG, CRP #### [facility] [address] [address] [address] Soo Donnelly Chloride [Moles/Vol] 101 mmol/L Normal 98-107 [facility] Comment on above: Performed By: #### U LG, CRP #### [facility] [address] [address] [address] Soo Donnelly CO2 [Moles/Vol] 31.1 mmol/L Normal 21.0-32.[address] [facility] Comment on above: Performed By: #### U LG, CRP #### [facility] [address] [address] [address] Soo Donnelly Creatinine [Mass/Vol] 0.77 mg/dL Normal 0.55-1.02 [facility] Comment on above: Performed By: #### U LG, CRP #### [facility] [address] [address] [address] Soo Donnelly EGFR-AF NEW ZEALANDER >60 Normal >=[address] [facility] Comment on above: Performed By: #### U LG, CRP #### [facility] [address] [address] [address] Soo Donnelly EGFR-NON AF NEW ZEALANDER >60 Normal >=60 [facility] Comment on above: Performed By: #### U LG, CRP #### [facility] [address] [address] [address] Soo Donnelly Globulin (S) [Mass/Vol] 3.0 g/dL Normal [facility] Comment on above: Performed By: #### U LG, CRP #### [facility] [address] [address] [address] Soo Donnelly Glucose [Mass/Vol] 104 mg/dL Normal 74-106 [facility] Comment on above: Performed By: #### U LG, CRP #### [facility] [address] [address] [address] Soo Donnelly Potassium [Moles/Vol] 3.4 mmol/L Critically low 3.5-5.1 [facility] Comment on above: Performed By: #### U LG, CRP #### [facility] [address] [address] [address] Soo Donnelly Protein [Mass/Vol] 6.2 g/dL Critically low 6.4-8.2 [facility] Comment on above: Performed By: #### U LG, CRP #### [facility] [address] [address] [address] Soo Donnelly Sodium [Moles/Vol] 138 mmol/L Normal 136-145 [facility] Comment on above: Performed By: #### U LG, CRP #### [facility] [address] [place] [address] Dr. Soo Donnelly Urea nitrogen [Mass/Vol] 16.0 mg/dL Normal 7.0-18.0 [facility] Comment on above: Performed By: #### U LG, CRP #### [facility] [address] [place] [address] Dr. Soo Donnelly Urea nitrogen/Creatinine [Mass ratio] 20.8 mg/mg Normal [facility] Comment on above: Performed By: #### U LG, CRP #### [facility] [address] [place] [address] Dr. Soo Donnelly TSHon 07-19-2022 TSH 3.262 uIU/mL Normal 0.358-3.740 [facility] Comment on above: Performed By: #### U LG, CRP #### [facility] [address] [place] [address] Dr. Soo Donnelly CBC AUTO DIFFon 05-18-2022 BASO # 0.0 103/ul Normal 0.0-0.1 [facility] Comment on above: Performed By: #### U LG, CRP #### [facility] [address] [place] [address] Dr. Soo Donnelly Basophils/100 WBC (Bld) 0.2 % Normal 0.2-2.0 [facility] Comment on above: Performed By: #### U LG, CRP #### [facility] [address] [place] [address] Dr. Soo Donnelly EO # 0.0 103/ul Normal 0.0-0.7 [facility] Comment on above: Performed By: #### U LG, CRP #### [facility] [address] [place] [address] Dr. Soo Donnelly Eosinophils/100 WBC (Bld) 0.2 % Critically low 0.9-7.0 [facility] Comment on above: Performed By: #### U LG, CRP #### [facility] [address] [place] [address] Dr. Soo Donnelly Erythrocyte distribution width (RBC) [Ratio] 12.8 % Normal 11.0-15.0 [facility] Comment on above: Performed By: #### U LG, CRP #### [facility] [address] [place] [address] Dr. Soo Donnelly Hematocrit (Bld) [Volume fraction] 35.7 % Critically low 36.0-48.0 [facility] Comment on above: Performed By: #### U LG, CRP #### [facility] [address] [place] [address] Dr. Soo Donnelly Hemoglobin (Bld) [Mass/Vol] 11.5 g/dL Critically low 12.0-16.0 [facility] Comment on above: Performed By: #### U LG, CRP #### [facility] [address] [place] [address] Dr. Soo Donnelly IG # 0.07 10e3/ul Critically high 0.00-0.03 [facility] Comment on above: Performed By: #### U LG, CRP #### [facility] [address] [place] [address] Dr. Soo Donnelly IG % 0.5 % Normal 0.0-0.5 [facility] Comment on above: Performed By: #### U LG, CRP #### [facility] [address] [place] [address] Dr. Soo Donnelly LYMPH # 4.1 103/ul Critically high 1.2-3.8 [facility] Comment on above: Performed By: #### U LG, CRP #### [facility] [address] [place] [address] Dr. Soo Donnelly Lymphocytes/100 WBC (Bld) 28.3 % Normal 20.5-60.0 [facility] Comment on above: Performed By: #### U LG, CRP #### [facility] [address] [place] [address] Dr. Soo Donnelly MANUAL DIFF REQ NO Normal [facility] Comment on above: Performed By: #### U LG, CRP #### [facility] [address] [place] [address] Dr. Soo Donnelly MCH (RBC) [Entitic mass] 31.7 pg Normal 26.7-34.0 [facility] Comment on above: Performed By: #### U LG, CRP #### [facility] [address] [place] [address] Dr. Soo Donnelly MCHC (RBC) [Mass/Vol] 32.2 g/dL Normal 29.9-35.2 [facility] Comment on above: Performed By: #### U LG, CRP #### [facility] [address] [place] [address] Dr. Soo Donnelly MCV (RBC) [Entitic vol] 98.3 fL Normal 81.0-99.0 [facility] Comment on above: Performed By: #### U LG, CRP #### [facility] [address] [place] [address] Dr. Soo Donnelly MONO # 0.8 103/ul Normal 0.3-0.8 [facility] Comment on above: Performed By: #### U LG, CRP #### [facility] [address] [place] [address] Dr. Soo Donnelly Monocytes/100 WBC (Bld) 5.6 % Normal 1.7-12.0 [facility] Comment on above: Performed By: #### U LG, CRP #### [facility] [address] [place] [address] Dr. Soo Donnelly NEUT # 9.4 103/ul Critically high 1.4-6.5 [facility] Comment on above: Performed By: #### U LG, CRP #### [facility] [address] [place] [address] Dr. Soo Donnelly Neutrophils/100 WBC (Bld) 65.2 % Normal 43.0-75.0 [facility] Comment on above: Performed By: #### U LG, CRP #### [facility] [address] [address] [address] Soo Donnelly Platelet mean volume (Bld) [Entitic vol] 10.8 fL Normal 9.5-13.5 [facility] Comment on above: Performed By: #### U LG, CRP #### [facility] [address] [address] [address] Soo Donnelly PLT 191 103/ul Normal 150-450 [facility] Comment on above: Performed By: #### U LG, CRP #### [facility] [address] [place] [address] Dr. oSo Donnelly RBC 3.63 106/ul Critically low 4.20-5.40 [facility] Comment on above: Performed By: #### U LG, CRP #### [facility] [address] [place] [address] Dr. Soo Donnelly WBC 14.4 103/ul Critically high 4.0-11.0 [facility] Comment on above: Performed By: #### U LG, CRP #### [facility] [address] [place] [address] Dr. Soo Donnelly BUNon 05-17-2022 Urea nitrogen [Mass/Vol] 8.0 mg/dL Normal 7.0-18.0 [facility] Comment on above: Performed By: #### B UN, CREA #### [facility] [address] [place] [address] Dr. Soo Donnelly CBC AUTO DIFFon 05-17-2022 BASO # 0.0 103/ul Normal 0.0-0.1 [facility] Comment on above: Performed By: #### U LG, CRP #### [facility] [address] [place] [address] Dr. Soo Donnelly Basophils/100 WBC (Bld) 0.1 % Critically low 0.2-2.0 [facility] Comment on above: Performed By: #### U LG, CRP #### [facility] [address] [place] [address] Dr. Soo Donnelly EO # 0.0 103/ul Normal 0.0-0.7 [facility] Comment on above: Performed By: #### U LG, CRP #### [facility] [address] [address] [address] Soo Donnelly Eosinophils/100 WBC (Bld) 0.0 % Critically low 0.9-7.0 [facility] Comment on above: Performed By: #### U LG, CRP #### [facility] [address] [place] [address] Dr. Soo Donnelly Erythrocyte distribution width (RBC) [Ratio] 12.5 % Normal 11.0-15.0 [facility] Comment on above: Performed By: #### U LG, CRP #### [facility] [address] [place] [address] Dr. Soo Donnelly Hematocrit (Bld) [Volume fraction] 38.5 % Normal 36.0-48.0 [facility] Comment on above: Performed By: #### U LG, CRP #### [facility] [address] [place] [address] Dr. Soo Donnelly Hemoglobin (Bld) [Mass/Vol] 13.0 g/dL Normal 12.0-16.0 [facility] Comment on above: Performed By: #### U LG, CRP #### [facility] [address] [place] [address] Dr. Soo Donnelly IG # 0.16 10e3/ul Critically high 0.00-0.03 [facility] Comment on above: Performed By: #### U LG, CRP #### [facility] [address] [place] [address] Dr. Soo Donnelly IG % 0.7 % Critically high 0.0-0.5 [facility] Comment on above: Performed By: #### U LG, CRP #### [facility] [address] [place] [address] Dr. Soo Donnelly LYMPH # 3.0 103/ul Normal 1.2-3.8 [facility] Comment on above: Performed By: #### U LG, CRP #### [facility] [address] [place] [address] Dr. Soo Donnelly Lymphocytes/100 WBC (Bld) 12.2 % Critically low 20.5-60.0 [facility] Comment on above: Performed By: #### U LG, CRP #### [facility] [address] [place] [address] Dr. Soo Donnelly MANUAL DIFF REQ NO Normal [facility] Comment on above: Performed By: #### U LG, CRP #### [facility] [address] [place] [address] Dr. Soo Donnelly MCH (RBC) [Entitic mass] 32.4 pg Normal 26.7-34.0 [facility] Comment on above: Performed By: #### U LG, CRP #### [facility] [address] [place] [address] Dr. Soo Donnelly MCHC (RBC) [Mass/Vol] 33.8 g/dL Normal 29.9-35.2 [facility] Comment on above: Performed By: #### U LG, CRP #### [facility] [address] [place] [address] Dr. Soo Donnelly MCV (RBC) [Entitic vol] 96.0 fL Normal 81.0-99.0 [facility] Comment on above: Performed By: #### U LG, CRP #### [facility] [address] [place] [address] Dr. Soo Donnelly MONO # 1.3 103/ul Critically high 0.3-0.8 [facility] Comment on above: Performed By: #### U LG, CRP #### [facility] [address] [place] [address] Dr. Soo Donnelly Monocytes/100 WBC (Bld) 5.4 % Normal 1.7-12.0 [facility] Comment on above: Performed By: #### U LG, CRP #### [facility] [address] [place] [address] Dr. Soo Donnelly NEUT # 19.8 103/ul Critically high 1.4-6.[address] [facility] Comment on above: Performed By: #### U LG, CRP #### [facility] [address] [place] [address] Dr. Soo Donnelly Neutrophils/100 WBC (Bld) 81.6 % Critically high 43.0-75.0 [facility] Comment on above: Performed By: #### U LG, CRP #### [facility] [address] [address] [address] Soo Donnelly Platelet mean volume (Bld) [Entitic vol] 10.5 fL Normal 9.5-13.5 [facility] Comment on above: Performed By: #### U LG, CRP #### [facility] [address] [address] [address] Soo Donnelly PLT 253 103/ul Normal 150-450 [facility] Comment on above: Performed By: #### U LG, CRP #### [facility] [address] [address] [address] Soo Donnelly RBC 4.01 106/ul Critically low 4.20-5.40 [facility] Comment on above: Performed By: #### U LG, CRP #### [facility] [address] [address] [address] Soo Donnelly WBC 24.3 103/ul Critically high 4.0-11.[address] [facility] Comment on above: Performed By: #### U LG, CRP #### [facility] [address] [address] [address] Soo Donnelly BASO # 0.0 103/ul Normal 0.0-0.1 [facility] Comment on above: Performed By: #### U LG, CRP #### [facility] [address] [address] [address] Soo Donnelly Basophils/100 WBC (Bld) 0.1 % Critically low 0.2-2.0 [facility] Comment on above: Performed By: #### U LG, CRP #### [facility] [address] [place] [address] Dr. Soo Donnelly EO # 0.0 103/ul Normal 0.0-0.7 [facility] Comment on above: Performed By: #### U LG, CRP #### [facility] [address] [place] [address] Dr. Soo Donnelly Eosinophils/100 WBC (Bld) 0.0 % Critically low 0.9-7.0 [facility] Comment on above: Performed By: #### U LG, CRP #### [facility] [address] [place] [address] Dr. Soo Donnelly Erythrocyte distribution width (RBC) [Ratio] 12.3 % Normal 11.0-15.0 [facility] Comment on above: Performed By: #### U LG, CRP #### [facility] [address] [place] [address] Dr. Soo Donnelly Hematocrit (Bld) [Volume fraction] 41.2 % Normal 36.0-48.0 [facility] Comment on above: Performed By: #### U LG, CRP #### [facility] [address] [place] [address] Dr. Soo Donnelly Hemoglobin (Bld) [Mass/Vol] 13.5 g/dL Normal 12.0-16.0 [facility] Comment on above: Performed By: #### U LG, CRP #### [facility] [address] [place] [address] Dr. Soo Donnelly IG # 0.11 10e3/ul Critically high 0.00-0.03 [facility] Comment on above: Performed By: #### U LG, CRP #### [facility] [address] [place] [address] Dr. Soo Donnelly IG % 0.5 % Normal 0.0-0.5 [facility] Comment on above: Performed By: #### U LG, CRP #### [facility] [address] [place] [address] Dr. Soo Donnelly LYMPH # 1.6 103/ul Normal 1.2-3.8 [facility] Comment on above: Performed By: #### U LG, CRP #### [facility] [address] [place] [address] Dr. Soo Donnelly Lymphocytes/100 WBC (Bld) 7.8 % Critically low 20.5-60.0 [facility] Comment on above: Performed By: #### U LG, CRP #### [facility] [address] [address] [address] Soo Donnelly MANUAL DIFF REQ NO Normal [facility] Comment on above: Performed By: #### U LG, CRP #### [facility] [address] [address] [address] Soo Donnelly MCH (RBC) [Entitic mass] 31.8 pg Normal 26.7-34.0 [facility] Comment on above: Performed By: #### U LG, CRP #### [facility] [address] [place] [address] Dr. Soo Donnelly MCHC (RBC) [Mass/Vol] 32.8 g/dL Normal 29.9-35.2 [facility] Comment on above: Performed By: #### U LG, CRP #### [facility] [address] [place] [address] Dr. Soo Donnelly MCV (RBC) [Entitic vol] 96.9 fL Normal 81.0-99.0 [facility] Comment on above: Performed By: #### U LG, CRP #### [facility] [address] [place] [address] Dr. Soo Donnelly MONO # 0.4 103/ul Normal 0.3-0.8 [facility] Comment on above: Performed By: #### U LG, CRP #### [facility] [address] [place] [address] Dr. Soo Donnelly Monocytes/100 WBC (Bld) 2.0 % Normal 1.7-12.0 [facility] Comment on above: Performed By: #### U LG, CRP #### [facility] [address] [place] [address] Dr. Soo Donnelly NEUT # 18.1 103/ul Critically high 1.4-6.[address] [facility] Comment on above: Performed By: #### U LG, CRP #### [facility] [address] [place] [address] Dr. Soo Donnelly Neutrophils/100 WBC (Bld) 89.6 % Critically high 43.0-75.0 [facility] Comment on above: Performed By: #### U LG, CRP #### [facility] [address] [address] [address] Soo Donnelly Platelet mean volume (Bld) [Entitic vol] 11.0 fL Normal 9.5-13.5 [facility] Comment on above: Performed By: #### U LG, CRP #### [facility] [address] [address] [address] Soo Donnelly PLT 223 103/ul Normal 150-450 [facility] Comment on above: Performed By: #### U LG, CRP #### [facility] [address] [address] [address] Soo Donnelly RBC 4.25 106/ul Normal 4.20-5.40 [facility] Comment on above: Performed By: #### U LG, CRP #### [facility] [address] [address] [address] Soo Donnelly WBC 20.2 103/ul Critically high 4.0-11.0 [facility] Comment on above: Performed By: #### U LG, CRP #### [facility] [address] [address] [address] Soo Donnelly CREATININEon 05-17-2022 Creatinine [Mass/Vol] 0.97 mg/dL Normal 0.55-1.02 [facility] Comment on above: Performed By: #### B UN, CREA #### [facility] [address] [place] [address] Dr. Soo Donnelly EGFR-AF NEW ZEALANDER >60 Normal >=60 [facility] Comment on above: Performed By: #### B UN, CREA #### [facility] [address] [address] [address] Soo Donnelly EGFR-NON AF NEW ZEALANDER >60 Normal >=60 [facility] Comment on above: Performed By: #### B UN, CREA #### [facility] [address] [place] [address] Dr. Soo Donnelly CTA CHEST WO W [...] ELENA SAUCEDA Date: 2022-05-17 16:40 Normal [facility] XR CHEST 2 Von 05-17-2022 [...] SAMI JONES Date: 2022-05-17 16:10 Normal [facility] CBC AUTO DIFFon 05-16-2022 BASO # 0.1 103/ul Normal 0.0-0.1 [facility] Comment on above: Performed By: #### B KYMBERLY MARSHALL #### [facility] [address] [address] [address] Soo Donnelly Basophils/100 WBC (Bld) 0.5 % Normal 0.2-2.0 [facility] Comment on above: Performed By: #### B HALLEY MARSHALLA #### [facility] [address] [place] [address] Dr. Soo Donnelly EO # 0.1 103/ul Normal 0.0-0.7 [facility] Comment on above: Performed By: #### B UN, CREA #### [facility] [address] [place] [address] Dr. Soo Donnelly Eosinophils/100 WBC (Bld) 1.0 % Normal 0.9-7.0 [facility] Comment on above: Performed By: #### B UN, CREA #### [facility] [address] [place] [address] Dr. Soo Donnelly Erythrocyte distribution width (RBC) [Ratio] 12.2 % Normal 11.0-15.0 [facility] Comment on above: Performed By: #### B UN, CREA #### [facility] [address] [place] [address] Dr. Soo Donnelly Hematocrit (Bld) [Volume fraction] 41.2 % Normal 36.0-48.0 [facility] Comment on above: Performed By: #### B UN, CREA #### [facility] [address] [place] [address] Dr. Soo Donnelly Hemoglobin (Bld) [Mass/Vol] 13.9 g/dL Normal 12.0-16.0 [facility] Comment on above: Performed By: #### B UN, CREA #### [facility] [address] [place] [address] Dr. Soo Donnelly IG # 0.04 10e3/ul Critically high 0.00-0.03 [facility] Comment on above: Performed By: #### B UN, CREA #### [facility] [address] [place] [address] Dr. Soo Donnelly IG % 0.4 % Normal 0.0-0.5 [facility] Comment on above: Performed By: #### B UN, CREA #### [facility] [address] [place] [address] Dr. Soo Donnelly LYMPH # 3.5 103/ul Normal 1.2-3.8 [facility] Comment on above: Performed By: #### B UN, CREA #### [facility] [address] [place] [address] Dr. Soo Donnelly Lymphocytes/100 WBC (Bld) 35.3 % Normal 20.5-60.0 [facility] Comment on above: Performed By: #### B UN, CREA #### [facility] [address] [place] [address] Dr. Soo Donnelly MANUAL DIFF REQ NO Normal [facility] Comment on above: Performed By: #### B UN, CREA #### [facility] [address] [place] [address] Dr. Soo Donnelly MCH (RBC) [Entitic mass] 31.7 pg Normal 26.7-34.0 [facility] Comment on above: Performed By: #### B UN, CREA #### [facility] [address] [place] [address] Dr. Soo Donnelly MCHC (RBC) [Mass/Vol] 33.7 g/dL Normal 29.9-35.2 [facility] Comment on above: Performed By: #### B UN, CREA #### [facility] [address] [place] [address] Dr. Soo Donnelly MCV (RBC) [Entitic vol] 94.1 fL Normal 81.0-99.0 [facility] Comment on above: Performed By: #### B UN, CREA #### [facility] [address] [place] [address] Dr. Soo Donnelly MONO # 0.5 103/ul Normal 0.3-0.8 [facility] Comment on above: Performed By: #### B UN, CREA #### [facility] [address] [place] [address] Dr. Soo Donnelly Monocytes/100 WBC (Bld) 5.4 % Normal 1.7-12.0 [facility] Comment on above: Performed By: #### B UN, CREA #### [facility] [address] [place] [address] Dr. Soo Donnelly NEUT # 5.6 103/ul Normal 1.4-6.5 [facility] Comment on above: Performed By: #### B UN, CREA #### [facility] [address] [place] [address] Dr. Soo Donnelly Neutrophils/100 WBC (Bld) 57.4 % Normal 43.0-75.0 [facility] Comment on above: Performed By: #### B UN, CREA #### [facility] [address] [place] [address] Dr. Soo Donnelly Platelet mean volume (Bld) [Entitic vol] 10.3 fL Normal 9.5-13.5 [facility] Comment on above: Performed By: #### B UN, CREA #### [facility] [address] [place] [address] Dr. Soo Donnelly PLT 235 103/ul Normal 150-450 [facility] Comment on above: Performed By: #### B UN, CREA #### [facility] [address] [place] [address] Dr. Soo Donnelly RBC 4.38 106/ul Normal 4.20-5.40 [facility] Comment on above: Performed By: #### B UN, CREA #### [facility] [address] [place] [address] Dr. Soo Donnelly WBC 9.8 103/ul Normal 4.0-11.0 [facility] Comment on above: Performed By: #### B UN, CREA #### [facility] [address] [place] [address] Dr. Soo Donnelly PREG QUANT HCGon 05-16-2022 HCG QUANT <1 Normal [facility] Comment on above: Performed By: #### U LG, CRP #### [facility] [address] [place] [address] Dr. Soo Donnelly HCG RANGE SEE BELOW Normal [facility] Comment on above: Result Comment: 5-50 0-1 WEEK 40-300 1-2 WEEKS 100-1,000 2-3 WEEKS 500-6,000 3-4 WEEKS 5,000-200,000 1-2 MONTHS 10,000-100,000 2-3 MONTHS 3,000-50,000 2ND TRIMESTER 1,000-50,000 3RD TRIMESTER Performed By: #### U LG, CRP #### [facility] [address] [place] [address] Dr. Soo Donnelly Covid-19 PCR ([facility])on 05-01 SARS-CoV-2 (COVID-19) RNA NOLA+probe Ql (Unsp spec) Not detected Normal NOT DETECTED [facility] Comment on above: Result Comment: This test is not yet approved or cleared by the [place] FDA. When there are no FDA-approved or cleared tests available, and other criteria are met, FDA can make tests available under an emergency access mechanism called an Emergency Use Authorization (EUA). The EUA for this test is supported by the Collarette Separator of Health and Human Service's (HHS's) declaration [...] SARS-CoV-2. Performed By: #### C VDTBH #### [facility] [address] [id number] Soo Donnelly TYPE AND SCREENon 05-13-2022 TYPE AND SCREEN Negative Normal [facility] Comment on above: Performed By: #### B UN, CREA #### [facility] [address] [place], [place] [address] Dr. Soo Donnelly PAP ACOG PANEL 2: 30 to 65on 05-07-2022 . . Normal [facility] Comment on above: Result Comment: Perf ormed at: WB Performed By: #### [id number] #### [facility] [address] [place] [address] Dr. Soo Donnelly Age Gdln ACOG Testing 30-65 Normal [facility] Comment on above: Performed By: #### [id number] #### [facility] [address] [address] [address] Soo Donnelly DIAGNOSIS: Comment Normal [facility] Comment on above: Result Comment: NEGA TIVE FOR INTRAEPITHELIAL LESION OR MALIGNANCY. Performed at: WB Performed By: #### [id number] #### [facility] [address] [address] [address] Soo Donnelly HPV Aptima Negative Normal Negative [facility] Comment on above: Result Comment: This nucleic acid amplification test detects fourteen high-risk HPV types (16,18,31,33,35,39,45,51,52,56,58,59,66,68) without differentiation. Performed at: =G Performed By: #### [id number] #### [facility] [address] [place] [address] Dr. Soo Donnelly Methodology: Comment Normal [facility] Comment on above: Result Comment: This liquid based ThinPrep(R) pap test was screened with the use of an image guided system. Performed at: WB Performed By: #### [id number] #### [facility] [address] [place] [address] Dr. Soo Donnelly Note: Comment Normal [facility] Comment on above: Result Comment: The Pap smear is a screening test designed to aid in the detection of premalignant and malignant conditions of the uterine cervix. It is not a diagnostic procedure and should not be used as the sole means of detecting cervical cancer. Both false-positive and false-negative reports do occur. . Performed at: WB Performed By: #### [id number] #### [facility] [address] [address] [address] Soo Donnelly Performed by: Comment Normal [facility] Comment on above: Result Comment: Angel Rod, Open Winder (ASCP) Performed at: WB Performed By: #### [id number] #### [facility] [address] [address] [address] Soo Donnelly Specimen adequacy: Comment Normal [facility] Comment on above: Result Comment: Sati sfactory for evaluation. Endocervical and/or squamous metaplastic cells (endocervical component) are present. Performed at: WB Performed By: #### [id number] #### [facility] [address] [place] [address] Dr. Soo Donnelly ROSS by IFAon 02-21-2022 Antinuclear Antibodies, IFA Negative Normal [facility] Comment on above: Result Comment: Nega tive <1:80 Borderline 1:80 Positive >1:80 ICAP nomenclature: AC-0 For more information about Hep-2 cell patterns use ANApatterns.org, the official website for the International Consensus on Antinuclear Antibody (ROSS) Patterns (ICAP). Performed By: #### U LG, CRP #### [facility] [address] [place] [address] Dr. Soo Donnelly ROSS DIRECTon 02-20-2022 ROSS Direct Negative Normal Negative [facility] Comment on above: Performed By: #### A NAD #### [facility] [address] [place] [address] Dr. Soo Donnelly ANTISTREPTOLYSIN O AB (ASO)o n 02-20-2022 Antistreptolysin O Ab 115.3 IU/mL Normal 0.0-200.0 [facility] Comment on above: Performed By: #### B UN, CREA #### [facility] [address] [place] [address] Dr. Soo Donnelly C3 and C4 COMPLEMENTon 02-20 Complement C3, Serum 137 mg/dL Normal 82-167 [facility] Comment on above: Performed By: #### U GL, CRP #### [facility] [address] [place] [address] Dr. Soo Donnelly Complement C4, Serum 23 mg/dL Normal 12-38 [facility] Comment on above: Performed By: #### U LG, CRP #### [facility] [address] [place] [address] Dr. Soo Donnelly SLE PROFILE Aon 02-20-2022 Anti-DNA (DS) Ab Qn <1 Normal 0-9 [facility] Comment on above: Result Comment: Nega tive <5 Equivocal 5 - 9 Positive >9 Performed By: #### S YARI #### [facility] [address] [address] [address] Soo Donnelly Antichromatin Antibodies <0.2 Normal 0.0-0.9 [facility] Comment on above: Performed By: #### S YARI #### [facility] [address] [address] [address] Soo Donnelly RA Latex Turbid. <10.0 Normal <14.[address] [facility] Comment on above: Performed By: #### S YARI #### [facility] [address] [address] [address] Soo Donnelly HAIRSPRING TRUING INSPECTOR Antibodies <0.2 Normal 0.0-0.9 [facility] Comment on above: Performed By: #### S YARI #### [facility] [address] [address] [address] Soo Donnelly Sjogrdaniela's Anti-SS-A <0.2 Normal 0.0-0.9 [facility] Comment on above: Performed By: #### S YARI #### [facility] [address] [address] [address] Soo Donnelly Sjogrdaniela's Anti-SS-B <0.2 Normal 0.0-0.9 [facility] Comment on above: Performed By: #### S YARI #### [facility] [address] [address] [address] Soo Donnelly Spann Antibodies <0.2 Normal 0.0-0.[address] [facility] Comment on above: Performed By: #### S YARI #### [facility] [address] [address] [address] Soo Donnelly CRPon 02-19-2022 CRP [Mass/Vol] mg/L Normal <=1.0 [facility] Comment on above: Performed By: #### U LG, CRP #### [facility] [address] [address] [address] Soo Donnelly URIC ACID SERUMon 02-19-2022 Urate [Mass/Vol] 4.7 mg/dL Normal 2.5-6.[address] [facility] Comment on above: Performed By: #### U LG, CRP #### [facility] [address] [address] [address] Soo Donnelly XR CSPINE MIN 4 [...] ABIGAIL GONSALVES Date: 2022-02-19 16:33 Normal [facility] XR HAND DEAN MIN 3Von 022 [...] ABIGAIL GONSALVES Date: 2022-02-19 16:28 Normal [facility] ASYMPTOMATIC COVID-19 ANTIGE Non 12-04-2021 EUA Statement SEE BELOW Normal [facility] Comment on above: Result Comment: This [...] sooner. Performed By: #### C VDAGA #### [facility] [address] [place] [address] Dr. Soo Donnelly SARS-CoV-2 (COVID-19) RNA NOLA+probe Ql (Unsp spec) Negative Normal NEGATIVE [facility] Comment on above: Result Comment: Nega tive results are presumptive. They do not preclude infection and should not be used as the sole basis for treatment decisions. Additional confirmatory testing by a molecular method should be considered. Performed By: #### C VDAGA #### [facility] [address] [place] [address] Dr. Soo Donnelly Covid-19 PCR (CVDTB)on SARS-CoV-2 (COVID-19) RNA NOLA+probe Ql (Unsp spec) Not detected Normal NOT DETECTED [facility] Comment on above: Result Comment: This test is not yet approved or cleared by the [place] FDA. When there are no FDA-approved or cleared tests available, and other criteria are met, FDA can make tests available under an emergency access mechanism called an Emergency Use Authorization (EUA). The EUA for this test is supported by the Collarette Separator of Health and Human Service's (HHS's) declaration [...] Performed By: #### U LG, CRP #### [facility] [address] [place] [address] Dr. Soo Donnelly Vital Signs Date Time Vital Sign Value Performing Clinician Facility 11-22-2024 13:21-0500 Body mass index (BMI) [Ratio] 28.66 kg/m2 Delgado Lidia DO Work Phone: [facility] 11-22-2024 13:21-0500 Body weight 83.01 kg Delgado Lidia DO Work Phone: [facility] 11-22-2024 13:21-0500 Diastolic blood pressure 80 mm[Hg] Delgado Lidia DO Work Phone: [facility] 11-22-2024 13:21-0500 Systolic blood pressure 128 mm[Hg] Delgado Lidia DO Work Phone: [facility] 11-01-2024 14:30-0500 Blood Pressure Location [employer] [facility] 11-01-2024 14:30-0500 Diastolic blood pressure 74 mm[Hg] [employer] [facility] 11-01-2024 14:30-0500 Heart rate 93 /min [employer] [facility] 11-01-2024 14:30-0500 Respiratory rate 16 /min Vinayak Baltazar [facility] 11-01-2024 14:30-0500 Systolic blood pressure 112 mm[Hg] [employer] [facility] 10-20-2024 11:08-0500 Body height 167.6 cm [facility] 1 [facility] 10-20-2024 11:08-0500 Body mass index (BMI) [Ratio] 28.41 kg/m2 [facility] 1 [facility] 10-20-2024 11:08-0500 Body weight 79.83 kg Pmh 1 [facility] 10-13-2024 14:20-0500 Body height 170.2 cm Becca Schwarz VICE PRESIDENT & GENERAL MANAGER [employer] MACHINE OPERATOR Work Phone: [facility] 10-13-2024 14:20-0500 Body mass index (BMI) [Ratio] 28.51 kg/m2 Becca Schwarz VICE PRESIDENT & GENERAL MANAGER [employer]MING MACHINE OPERATOR Work Phone: [facility] [employer] [facility] 10-13-2024 14:20-0500 Body weight 82.56 kg Becca Schwarz VICE PRESIDENT & GENERAL MANAGER [employer]MING MACHINE OPERATOR Work Phone: [facility] 11-01-2022 15:19-0500 Blood Pressure Location Nicola NILL [facility] 11-01-2022 15:19-0500 Diastolic blood pressure 80 mm[Hg] Nicola NILL [facility] 11-01-2022 15:19-0500 Heart rate 72 /min Nicola NILL [facility] 11-01-2022 15:19-0500 Respiratory rate 16 /min Nicola NILL [facility] 11-01-2022 15:19-0500 Systolic blood pressure 118 mm[Hg] Nicola NILL [facility] 10-01-2022 16:30-0400 Body height 170.18 cm Clarice Scally Other [employer] Other 10-01-2022 16:30-0400 Body mass index (BMI) [Ratio] 32.84 kg/m2 Clarice Scally Other [employer] Other 10-01-2022 16:30-0400 Body weight 95.12 kg Clarice Scally Other [employer] Other 10-01-2022 16:30-0400 Diastolic blood pressure 82 mm[Hg] Clarice Scally Other [employer] Other 10-01-2022 16:30-0400 Respiratory rate 18 /min Clarice Aldoly Other [employer] Other 10-01-2022 16:30-0400 SaO2% (BldA) [Mass fraction] 97 % Claricesissy Carlsonly Other [employer] Other 10-01-2022 16:30-0400 Systolic blood pressure 116 mm[Hg] Clarice Aldoly Other [employer] Other 08-28-2022 14:30-0400 Body height 170.18 cm Nahid Elisediff Other [employer] Other 08-28-2022 14:30-0400 Body mass index (BMI) [Ratio] 34.55 kg/m2 Nahid Elisediff Other [employer] Other 08-28-2022 14:30-0400 Body weight 100.06 kg Nahid Elisediff Other [employer] Other 08-28-2022 14:30-0400 Diastolic blood pressure 82 mm[Hg] Nahid Mccoy Other [employer] Other 08-28-2022 14:30-0400 Respiratory rate 18 /min Nahid Darius Other [employer] Other 08-28-2022 14:30-0400 SaO2% (BldA) [Mass fraction] 97 % Nahid Elisediff Other [employer] Other 08-28-2022 14:30-0400 Systolic blood pressure 121 mm[Hg] Nahid Mccoy Other [employer] Other Encounters Encounter Date Encounter Type Care Provider Facility Start: 02-07-2025 ambulatory Vinayak Loredo lity:[facility] Start: 11-22-2024 End: 11-22-2024 Bamboo flowsheet Delgado Lidia DO Work Phone: [facility] Start: 11-22-2024 End: 11-30-2024 Bamboo flowsheet Delgado Lidia DO Work Phone: [facility] Start: 11-22-2024 End: 11-30-2024 Clinisync Result Encounter Delgado Lidia DO Work Phone: [facility] External Department Unsolicited Start: 11-22-2024 End: 11-22-2024 Patient encounter procedure Delgado Lidia DO Work Phone: [facility] Start: 11-22-2024 End: 11-22-2024 Periodic preventive med est patient 40-64yrs Delgado Lidia DO Work Phone: [facility] Comment on above: Well woman exam with routine gynecological exam; H/O: hysterectomy; Breast cancer screening by mammogram; Yeast infection Start: 11-22-2024 End: 11-22-2024 ambulatory DELGADO LIDIA Not Available Start: 11-15-2024 End: 11-15-2024 ambulatory Hebert Jara MD Facility:[facility] Start: 11-01-2024 End: 11-01-2024 ambulatory Vinayak Baltazar Facility:[facility] Start: 11-01-2024 End: 11-01-2024 Patient encounter procedure Vinayak Baltazar [facility] Start: 10-27-2024 End: 10-27-2024 Evaluation and management of inpatient [facility] Start: 10-20-2024 End: 10-20-2024 ambulatory [facility] Pat Phone Call Provider 1 [facility] Start: 10-20-2024 End: 10-20-2024 ambulatory SAMI MCCARTY [facility] Start: 10-18-2024 End: 10-18-2024 ambulatory Hebert Jara MD Facility:[facility] Start: 10-14-2024 ambulatory Vinayak Baltazar Facilit y:[facility] Start: 10-13-2024 End: 10-13-2024 Office outpatient new 30 minutes Becca Ravi RealSchwarz VICE PRESIDENT & GENERAL MANAGER [employer] FORMING MACHINE OPERATOR Work Phone: [facility] Comment on above: Positive fecal occul t blood test (Primary Dx); Rectal bleeding; Gastroesophageal reflux disease, unspecified whether esophagitis present Start: 10-13-2024 End: 10-13-2024 ambulatory [facility] Start: 10-04-2024 End: 10-04-2024 ambulatory Hebert Jara MD Facility: [facility] Start: 09-27-2024 End: 09-27-2024 Office outpatient visit 15 minutes Delgado Liida DO Work Phone: [facility] Comment on above: Encounter to [...] 09-20-2024 End: 09-20-2024 ambulatory Hebert Jara MD Facility: [facility] Start: 09-09-2024 End: 09-09-2024 ambulatory Carol Webb PT Work Phone: [facility] Comment on above: Neck pain (Primary D x); Chronic bilateral low back pain with bilateral sciatica Start: 09-09-2024 End: 09-09-2024 Bamboo flowsheet Carol Webb PT Work Phone: [facility] Start: 09-09-2024 End: 09-09-2024 Bamboo flowsheet Carol Webb PT Work Phone: [facility] Start: 08-30-2024 End: 08-30-2024 Departed Referred [facility] [address] Work Phone: Start: 08-30-2024 End: 08-30-2024 ambulatory NON STAFF [facility] Work Phone: Start: 04-05-2024 End: 04-05-2024 ambulatory DELGADO MURILLO Not Available Start: 03-15-2024 End: 03-15-2024 Emergency department patient visit Nicola Art Brewster Facility:[facility] Start: 08-15-2023 End: 08-15-2023 ambulatory NON STAFF [facility] Work Phone: Start: 08-15-2023 End: 08-15-2023 Departed Referred [facility] [address] Work Phone: Start: 12-05-[address] SAMI MCCARTY Facility :[facility] Start: 11-09-2022 End: 11-10-[address] DOCTOR STEIN Facility:[facility] Start: 11-01-2022 End: 11-01-2022 Patient encounter procedure Nicola BUCHANAN [facility] [place] Start: 10-29-2022 End: 10-29-2022 ambulatory Clarice Hull Other [employer] Other Start: 10-29-2022 Telephone encounter Clarice [facility] Start: 10-14-2022 End: 10-14-2022 ambulatory Clarice Hull Other [employer] Other Start: 10-14-2022 Telephone encounter Clarice R[facility] Start: 10-01-2022 ([id number]) Weight Management f/u Clarice Hull [facility] Start: 10-01-2022 End: 10-02-[address] LUZ ELENA SAUCEDA [facility] [employer] Other Start: 09-19-2022 End: 09-19-2022 ambulatory Nahid Mccoy Other [employer] Other Start: 09-19-2022 Telephone encounter Nahid Rocha [facility] Start: 09-18-2022 End: 09-18-[address] LUZ ELENA SAUCEDA Facility:[facility] Start: 09-12-2022 End: 09-13-[address] ABIGAIL GONSALVES Facility:[facility] Start: 08-28-2022 End: 08-28-2022 ambulatory Nahid Mccoy Other [employer] Other Start: 08-28-2022 Nutrition therapy Nahid Mccoy [facility] Start: 07-22-2022 Encounter for genera l adult medical examination without abnormal findings DR SAMI MCCARTY [facility] Start: 07-19-2022 End: 07-20-2022 ambulatory [...] preprocedural laboratory examination DR DELGADO MURILLO [facility] Start: 05-13-2022 End: 05-14-[address] DELGADO MURILLO Facility:[facility] Start: 05-13-2022 End: 05-14-2022 Encounter for preprocedural laboratory examination DR DELGADO MURILLO Facility:[facility] Start: 05-11-2022 Encounter for preprocedural cardiovascular examination DR DELGADO MURILLO [facility] Start: 05-08-2022 End: 05-09-[address] SAMI MCCARTY Facility:[facility] Start: 05-08-2022 End: 05-09-2022 Encounter for preprocedural cardiovascular examination DR SAMI MCCARTY Facility:[facility] Start: 05-02-2022 End: 05-02-[address] DELGADO MURILLO Facility:[facility] Start: 02-19-2022 End: 02-20-[address] SAMI MCCARTY Facility:[facility] Start: 12-04-2021 End: 12-04-[address] SAMI MCCARTY Facility:[facility] Procedures Date Procedure Procedure Detail Performing Clinician Start: 11-22-2024 IGP,APTIMA HPV,AGE GDLN Delgado Murillo DO Work Phone: Start: 10-27-2024 Colonoscopy Delgado burnette DO Work Phone: Start: 11-27-2023 Mammography Carol lundy PT Work [...] abdomen Nicola BUCHANAN Start: 11-21-2011 Endometrial ablation Brett Baltazar Start: 03-28-2003 Cholecystectomy Vinayak Baltazar Abdominoplasty and liposuction Nicola BUCHANAN Arthroscopy of knee Nicola BUCHANAN Comment on above: LEFT Breast biopsy and re lated procedures Nicola BUCHANAN Comment on above: LEFT section Nicola Mei Diagnostic endoscopi c examination of ovary Nicola BUCHANAN Comment on above: OVARIAN CYSTS X3 Endometrial ablation Nicola BUCHANAN Extraction of wisdom tooth Jered BUCHANAN H/O: hysterectomy H/O: hysterectomy Delgado Lidia DO Work Phone: History of cholecystectomy S/P cholecyste ctomy Vinayak Baltazar Laparoscopic cholecystectomy Nicola BUCHANAN Laparoscopic excisio [...] 10-27-2034 Screening for malignant neoplasm of colon [facility] Start: 05-28-2031 Screening for malignant neoplasm of colon [facility] Start: 10-23-2028 Screening for malignant neoplasm of cervix [facility] Start: 10-23-2026 Screening for malignant neoplasm of cervix Pap Smear [facility] Start: 05-28-2026 Screening for malignant neoplasm of colon Colonoscopy [facility] Start: 10-13-2025 Adult BMI Screening Adult BMI Screening [facility] Start: 10-13-2025 Tobacco Screening Tobacco Screening [facility] Start: 11-27-2024 Screening for malignant neoplasm of breast Mammogram [facility] Start: 11-22-2024 End: 01-23-2026 MG Breast - bilateral Screening Bilateral screening mammogram Imaging Routine Breast cancer screening by mammogram Expected: 11/22/2024 (Approximate), Expires: 01/23/2026 [facility] Work Phone: Comment on above: Expected: 11/22/2024 (Approximate), Expi res: 01/23/2026 Start: 11-22-2024 End: 11-22-2024 Patient encounter procedure [facility] Comment on above: Arrived Start: 10-27-2024 End: 10-27-2024 Admission to same day surgery center [facility] Comment on above: ESOPHAGOGASTRODUODENOSCOPY DIAGNOSTIC [4 3235 (CPT )] Start: 10-27-2024 End: 10-27-2024 Colonoscopy flx dx w/collj spec when pfrmd [facility] Start: 10-27-2024 End: 10-27-2024 Esophagogastroduodenoscopy transoral diagnostic [facility] Start: 10-27-2024 Subsequent hospital visit by physician [facility] Start: 10-26-2024 End: 10-26-2024 Patient encounter procedure 10/26/2024 1:45 PM EST Office Visit [facility] General Surgery [address] [place] [id number] 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 [place] [place] [address] Delgado Murillo DO [address] [place] [address] Arrived [facility] Comment on above: Arrived Start: 09-09-2024 End: 09-09-2024 ambulatory 09/09/2024 4:00 PM EDT Evaluation [facility] [address] [place] [id number] Carol Webb, PT [address] [place] [address] Ar[facility] Comment on above: Arrived Start: 08-01-2024 COVID-19 Vaccine ( season) COVID-19 Vaccine ( season) [facility] Start: 08-01-2024 Influenza vaccination [facility] Start: 1995 DTaP,Tdap and Td Vaccines (1 - Tdap) DTaP,Tdap and Td Vaccines (1 - Tdap) [facility] Start: 1994 Adult BMI Follow Up Plan Adult BMI Follow Up Plan [facility] Start: 1988 Depression Screening Depression Screening [facility] Start: 1976 Screening for malignant neoplasm of colon [facility] Start: 1976 Tobacco Counseling Tobacco Counseling [facility] CHLAMYDIA TRACHOMATI S (GENITO/STI) CHLAMYDIA TRACHOMATIS (GENITO/STI) Lab Routine Vaginal spotting Ordered: 09/27/2024 [facility] Comment on above: Ordered: 09/27/2024 End: 10-13-2025 EGD / Colonoscopy EGD / Colonoscopy GI Routine Positive fecal occult blood test 1 Occurrences starting 10/13/2024 until 10/13/2025 [facility] Work Phone: Comment on above: 1 Occurrences starting 10/13/2024 until 10/13/2025 Neisseria gonorrhoea e DNA [Presence] in Unspecified specimen by NOLA with probe detection Neisseria gonorrhea DNA probe, direct Lab Routine Vaginal spotting Ordered: 09/27/2024 [facility] Comment on above: Ordered: 09/27/2024 SURESWAB(R) ADVANCED VAGINITIS PLUS, TMA SURESWAB(R) ADVANCED VAGINITIS PLUS, TMA Pathology and Cytology Routine Vaginal spotting Ordered: 09/27/2024 [facility] Work Phone: Comment on above: Ordered: 09/27/2024 THIN PREP TIS PAP AND HR HPV DNA THIN PREP TIS PAP AND HR HPV DNA Pathology and Cytology Routine Well woman exam with routine gynecological exam H/O: hysterectomy Ordered: 11/22/2024 [facility] Comment on above: Ordered: 11/22/2024 Immunizations Immunization Date Immunization Notes Care Provider Ramila [facility] 02-15-2018 SARS-CoV-2 mRNA (tbjezyhnjmk-mdnt-kijk ose) vaccine Vinayak Baltazar [facility] 10-02-2004 influenza virus vaccine, unspecified formulation [facility] Work Phone: [employer] NEGATED: Highlighted row has not occurred!11-01-2022 influenza virus vaccine, unspecified formulation Nicola BUCHANAN General Surgery [place] Payers Date Payer Category Payer Self-pay [id number] 2023 Private Health Insurance [employer] [id number] 2023 Unknown [id number]. 1.13.693.2. [id number] 2014 Commercial [facility] [employer] [id number]. [id number] 1976 Unknown [id number] 2.16840.1.868086.3.579.2. 59 1976 Unknown [id number] 2.16840.1.216624.3.579.2. 59 1976 Unknown [id number] 2.16840.1.338665.3.579.2. 59 1976 Unknown [id number] 2.16840.1.664180.3.579.2. 593 1976 Unknown [id number] 2.16840.1.432194.3.579.2. 59 1976 Unknown [id number] 2.16840.1.240058.3.579.2. 59 1976 Unknown [id number] 2.16840.1.824095.3.579.2. 59 1976 Unknown [id number] 2.16840.1.565716.3.579.2. 593 1976 Unknown [id number] 2.16840.1.925437.3.579.2. 593 1976 Unknown [id number] 2.16.840.1.266731.3.579.2. 593 1976 Unknown [id number] 2.16.840.1.597510.3.579.2. 593 1976 Unknown [id number] 2.16.840.1.796614.3.579.2. 593 1976 Unknown [id number] 2.16.840.1.923454.3.579.2. 593 1976 Unknown [id number] 2.16.840.1.177999.3.579.2. 593 1976 Unknown [id number] 2.16.840.1.632009.3.579.2. 718 1976 Unknown [id number] 2.16.840.1.111878.3.579.2. 1286 1976 Unknown [id number] 2.16.840.1.853204.3.579.2. 727 1976 Unknown [id number] 2.16.840.1.946942.3.579.2. 727 1976 Unknown [id number] 2.16.840.1.518101.3.579.2. 1286 1976 Unknown [id number] 2.16.840.1.006023.3.579.2. 1286 1976 Unknown [id number] 2.16.840.1.873131.3.579.2. 196 1976 Unknown [id number] 2.16.840.1.791718.3.579.2. 196 1976 Unknown [id number] 2.16.840.1.290177.3.579.2. 196 1976 Unknown [id number] 2.16.840.1.794463.3.579.2. 196 1976 Unknown [id number] 2.16.840.1.645173.3.579.2. 1259 1976 Unknown [id number] 2.16.840.1.259464.3.579.2. 9 1976 Unknown [id number] 2.16.840.1.692602.3.579.2. 9 1976 Unknown [id number] 2.16.840.1.612016.3.579.2. 1259 1959 Self-pay [id number] 1959 Unknown [id number] 2.16.840.1.088457.19 Unknown [id number] 2.16.840.1.395968.3.579.2. 531 Social History Date Type Detail Facility Unknown if ever smoked [facility] [employer] Other Start: 01-11-2021 End: 10-20-2023 Sex Assigned At [facility] Start: 11-01-2022 Tobacco smoking status Ex-smoker (finding) [facility] Tobacco smoking status Former sm okeless tobacco user, quit more than 30 days ago General Surgery [facility] Start: 1975 Sex Assigned At [facility] Start: 06-25-2023 Tobacco smoking status DEIS Smokes tobacco daily [facility] History of tobacco use Cigarette Smoker [facility] Start: 04-05-2024 End: 10-20-2024 Alcoholic beverage intake Current drinker of alcohol [...] assigned at Not on file [facility] Tobacco Current vaping o r e-cigarette use Smokeless Tobacco Use:. [facility] Tobacco smoking status No Smokin g Status Entered [facility] Start: 10-13-2024 End: 10-20-2024 Tobacco smoking status NHIS Occasional tobacco smoker [facility] History of tobacco use [facility] Start: 10-13-2024 End: 10-20-2024 Tobacco use and exposure Smokeless tobacco non-user [facility] Start: 10-13-2024 Alcoholic beverage intake Current non-drinker of alcohol (finding) [facility] Start: 07-06-2015 Sex Female (finding) [facility] Start: 12-06-2022 Gender identity Identifies as female gender (finding) [facility] Start: 12-06-2022 Sexual orientation Homosexual (finding) [facility] Start: 10-20-2024 Alcohol Comment rare [facility] tem Functional Status Date Assessment Result Facility 11-01-2024 Functional Status N/A [facility] 11-01-2022 Functional Status N/A General Delgado yaa [place] Clinical Notes 05-16-2022 to 11-22-2024 Franci Sutton MA - 11/22/2024 1:00 PM ESTPerioperative Nursing Note [...] ARTHROCENTESIS, RIGHT SHOULDER subacromial space BELT ABDOMINOPLASTY 2010 tummy tuck BREAST LUMPECTOMY Left 1998 EXCISION 2015 lipoma and cyst left groin and right thigh HYSTERECTOMY 2021 OTHER SURGICAL HISTORY 2015 uterine ablation PELVIC LAPAROSCOPY 2006 laparoscopy-operative POLYPECTOMY 2005 uterine polyp removal MS LAP,CHOLECYSTECTOMY 2003 MS LIGATION,FALLOPIAN TUBE W/ 2006 c-sec w/tubal MS TMJ ARTHROSCOPY/SURGERY 1996 SHOULDER ARTHROSCOPY Left REVIEW [...] nursing note reviewed. Exam conducted with a civil service clerk present. Vitals: Estimated body mass index is [...] scheduled/obtained. Nursing will send progesterone/testosterone cream to [facility] for patient. Orders Placed This Encounter Procedures Bilateral screening mammogram Follow Up: Patient is to return in one year for annual unless needed otherwise. Documented by Franci Sutton MA on behalf of: Delgado Murillo DO documented in this encounter [facility] 10-20-2024 Nurse Note Preoperative Education Checklist- General Surgery date: 10/27/24 Surgery time: 1045a Arrival time: 845a 1. Bring a photo ID and your insurance card with you the day of surgery. You will check in at the main lobby of the [facility]- registration desk is straight ahead as soon as you walk in. Tell them you are here for surgery. 2. If you have a Living Will/Durable Power of [employer] Technician for Health Care that is not on [...] after you have bathed. 5. NO nail turkish/acrylic on at least one finger. If you are having a hand, wrist or foot surgery then all nail turkish and artificial/acrylic nails must be removed from [...] please call the Preadmission Testing office at [phone], Mon.-Fri. 7 a.m.-3 p.m. Leave a voicemail [...] Stop taking 0 days prior to procedure [facility] 10-20-2024 Miscellaneous Notes Preoperative Education Checklist- General Surgery date: 10/27/24 Surgery time: 1045a Arrival time: 845a 1. Bring a photo ID and your insurance card with you the day of surgery. You will check in at the main lobby of the [facility]- registration desk is straight ahead as soon as you walk in. Tell them you are here for surgery. 2. If you have a Living Will/Durable Power of [employer] Technician for Health Care that is not on [...] after you have bathed. 5. NO nail turkish/acrylic on at least one finger. If you are having a hand, wrist or foot surgery then all nail turkish and artificial/acrylic nails must be removed from [...] please call the Preadmission Testing office at [phone], Mon.-Fri. 7 a.m.-3 p.m. Leave a voicemail [...] prior to procedure documented in this encounter [facility] 10-13-2024 History of Presen t illness [...] 05/28/2021 Performed by Nicola Gee DO at [facility] COLONOSCOPY N/A 05/04/2018 Performed by Nicola Gee DO at [facility] CYST REMOVAL from uterus and ovaries x 5 EGD N/A 05/04/2018 Performed by Nicola Gee DO at [facility] ESOPHAGOGASTRODUODENOSCOPY N/A 05/28/2021 Performed by Nicola Gee DO at [facility] KNEE ARTHROSCOPY Left KNEE ARTHROSCOPY Right LAPAROSCOPIC [...] muscle spasms., Disp: , Rfl: peg 3350-sod sulf,shrl-gzb-zco 178.7-7.3-0.5 gram recon soln, Take 1 kit [...] patient/family/caregiver Referring and 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 While intending to generate a timely document that accurately reflects the content of the visit, no guarantee can be provided that every grammatical or spelling mistake has been or will be identified or corrected. Thank you for your understanding. MAYRA Vieira 10/13/24 1513 documented in this encounter [facility] 09-27-2024 History of Presen t illness [...] 2006 laparoscopy-operative POLYPECTOMY 2005 uterine polyp removal MS LAP,CHOLECYSTECTOMY 2003 MS LIGATION,FALLOPIAN TUBE W/ 2006 c-sec w/tubal MS TMJ ARTHROSCOPY/SURGERY 1996 SHOULDER ARTHROSCOPY Left REVIEW [...] nursing note reviewed. Exam conducted with a civil service clerk present. Vitals: Estimated body mass index is [...] Delgado Murillo DO documented in this encounter [facility] 09-09-2024 History of Presen t illness [...] No resulting surgeries. 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 Also notes poor balance with no diagnosed [...] sign below. Date: documented in this encounter [facility] 03-15-2024 Note Education Materials Cardiovascular Hypertension, [...] Keep all follow-up visits. Medicines ? Take cboy-iyn-jvgcigx and prescription medicines only as told by [...] work harder to (more content not included)... [facility] 10-01-2022 Evaluation note Encounter Date Diagnosis Assessment Notes Oct, Abnormal weight gain (ICD-10 - R63.5) Oct, Obesity (ICD-10 - E66.9) Plan, purchase and prepare healthy foods. Use shopping list, GIROPTIC shopping to curb impulse buying. Stock pantry [...] was counseling done by myself, Ann ANGLIN. [facility] Other 09-28-2022 Evaluation note* Encounter Date Diagnosis Assessment Notes Treatment Notes Treatment Clinical Notes Aug, Abnormal weight gain (ICD-10 - R63.5) Aug, Prediabetes (ICD-10 - R73.03) Aug, Mixed hyperlipidemia (ICD-10 - E78.2) Aug, Hypertension (ICD-10 - I10) Aug, Obstructive sleep apnea (ICD-10 - G47.33) Aug, GERD (gastroesophageal reflux disease) (ICD-10 - K21.9) Aug, Metabolic syndrome X (ICD-10 - E88.81) [facility] Other 06-16-2022 NoteDISCHARGE SUMMARY DISCHARGE DATE: 05/18/2022 [...] pain free and no longer on narcotics. [facility] Signed and Approved by: DR DELGADO MURILLO . 05/20/2022 07:51:00[facility] [id number] NoteThe [place], [place] NAME: HORACIO PUGH DATE OF : MEDICAL REC#: [id number] UNIX ENGINEER: 160Beulah LEE [facility] ADMIT DATE: 05/16/2022 11:05:00 PATIENT PARTNER DATE: 05/17/2022 21:20 DICTATING PHYSICIAN: DELGADO MURILLO DICTATION DATE: 05/16/2022 15:02 OP Note OPERATION DATE: 05/16/2022 PROCEDURE: Supracervical hysterectomy with left salpingo-oophorectomy with right salpingectomy and right ovarian cystotomy of approximately 3 cm cyst. SURGEON: Delgado Murillo D.O. PLACEMENT OFFICER: SHUKRI Bailon URINE OUTPUT: Yellow and [...] Approved by: DR DELGADO MURILLO . 05/23/2022 10:30:00[facility] No data available for this section General Surgery [place] Evaluation + Plan note Future Appointments Appointment Date:02/07/2025 02:15:00 PM Scheduled Provider:Vinayak Baltazar MD Location:[facility] Appointment Type:[facility] Follow Up Future Scheduled Tests Laboratory* Antimitochondrial Antibody, Quantitative 11/01/24 * Smooth Muscle Antibody Screen 11/01/24 * IgA, Quant. 11/01/24 * IgG, Quant. 11/01/24 * t-Transglutaminase IgA 11/01/24 * Comprehensive Metabolic Panel 11/01/24 * Comprehensive Metabolic Panel 12/02/24 * Comprehensive Metabolic Panel 01/02/25 [facility] Evaluation noteNo InformationNort 3Bays[employer] Other Evaluation noteNo assessment information available [facility] Work Phone: Evaluation note* Diagnosis Neck pain- Primary Cervicalgia Chronic bilateral low back pain with bilateral sciatica documented [facility] Diagnosis Encounter to discuss test results Other specified counseling Vaginal spotting Other specified noninflammatory disorder of vagina Hot flashes due to surgical menopause Surgical menopause documented in this encounter [facility] Healthcare[facility] note* Diagnosis Well woman exam with routine gynecological exam Routine gynecological examination H/O: hysterectomy Acquired absence of both cervix and uterus Breast cancer screening by mammogram Yeast infection documented in this encounter [facility] HealthcareEvaluation note* Diagnosis Positive fecal occult blood test- Primary Rectal bleeding Hemorrhage of rectum and anus Gastroesophageal reflux disease, unspecified whether esophagitis present documented in this encounter [facility] [employer] SystemHistory general Narrative - Reported* Type Description [...] History TMJ surgery Hospitalization History see above [facility] Other History general Narrative - Reported* Type [...] ER-abd . [facility] 09[facility]18[facility]22 [facility] Other Hospital Discharge instructions No data available for this section General Surgery [facility] InstructionsNot on filedocumented in this encounter [facility] SystemInstructionsNot on filedocumented in this encounter [facility] [employer] SystemProgress note No data available for this [...] Therapy Diagnoses Other spondylosis, lumbar region Procedures MS PHYS THERAPY EVALUATION Edwige Magaña MD [facility] [place] [address] Carol Webb, PT [address] [place] [address] Referral ID Status Reason Start Date Expiration Date V isits Requested Visits Authorized [id number] Authorized 09/02/2024 03/01/2025 40 40 Reason Comments Results Reason Comments Gynecologic Exam Reason Comments POSITIVE OCCULT TEST POSITIVE OCCULT STO OL, REF BY DR. MCCARTY Patient Care team informatio n (unrecognized section and content) Team Status: Active Member Role Status Dates NON STAFF Primary Care Provider Active Team Status: Inactive Member Role Status Dates NON STAFF Primary Care Provider Active Dedrick Fuller DO [facility] Attending Provider Active Team Status: Inactive Member Role Status Dates NON STAFF Primary Care Provider Active Start: August 30, 2024 End: August 30, 2024 Dedrick Rangel [facility] DO [facility] Attending Provider Active Start: August 30, 2024 End: August 30, 2024 Staff Attorney Relationship Specialty Start Date End Date Sami Mccarty MD [address] [place] [address] PCP - General Family Medicine 06/26/23 Staff Attorney Relationship Specialty Start Date End Date Sami Mccarty MD [address] [place] [address] PCP - General Family Medicine 06/26/23 Staff Attorney Relationship Specialty Start Date End Date Sami Mccarty MD [address] [place] [address] PCP - General Family Medicine 06/26/23 Staff Attorney Relationship Specialty Start Date End Date Sami Mccarty MD [address] [place] [address] PCP - General Family Medicine 06/26/23 Staff Attorney Relationship Specialty Start Date End Date Sami Mccarty MD [address] [place] [address] PCP - General Family Medicine 06/26/23 Staff Attorney Relationship Specialty Start Date End Date Sami Mccarty MD PCP - General 05/04/18 Staff Attorney Relationship Specialty Start Date End Date Sami Mccarty MD PCP - General 05/04/18 INFORMATION SOURCE (unrecogn ized section and content) DATE CREATED AUTHOR 12/03/2022 [facility] DATE CREATED AUTHOR AUTHOR'S ORGANIZ ATION 03/21/2024 [facility] DATE CREATED AUTHOR AUTHOR'S ORGANIZ ATION 08/31/2024 [facility] DATE CREATED AUTHOR AUTHOR'S ORGANIZ ATION 10/15/2024 [facility] DATE CREATED AUTHOR AUTHOR'S ORGANIZ ATION 11/02/2024 [facility] DATE CREATED AUTHOR AUTHOR'S ORGANIZ ATION 11/12/2024 [facility] DATE CREATED AUTHOR AUTHOR'S ORGANIZ ATION 11/24/2024 [facility] DATE CREATED AUTHOR AUTHOR'S ORGANIZ ATION 11/24/2024 [facility] EPIC Goals (unrecognized section and content) [...] BE BASED ON THE PRIMARY CLINICAL RECORDS. [employer] [facility]. provides no warranty or guarantee of the accuracy or completeness of information in this document.
--- NOTE | 2025-01-28 07:35 | MM_ITS ---
Patient Name: HORACIO KEATING MR#: [id number] : 1975 Exam Date: 01/28/2025 Ordering Doctor: DR AURA MALHOTRA . RADIOLOGY REPORT PROCEDURE: MM TOMOSYNTHESIS SCREENING BI COMPARISON: MM TOMOSYNTHESIS SCREENING BI, 11/26/2023. MG MAMM SCREEN 3D DENA CAD, 09/12/2022. MG MAMM SCREEN 3D DEAN CAD, 07/26/2021. MG MAMM DEAN DIAG W CAD DIG, 05/26/2007. INDICATIONS: Screening Calculator Name NCI Breast Cancer Risk Assessment Tool 5 Year Breast Cancer Risk 1.50% Lifetime Breast Cancer Risk 13.20% Personal Breast Cancer No Personal Ovarian Cancer No Treatments None Family Cancers Mother with lung cancer at age 68; Grandmother-maternal with breast cancer at age 64; Grandmother-paternal with ovarian cancer at age 76. LOCATION: [facility] BREAST COMPOSITION: There are scattered areas of fibroglandular density. FINDINGS: RIGHT BREAST: No significant suspicious finding. LEFT BREAST: No significant suspicious finding. There is a similar focal asymmetry of the left breast. Benign-appearing lymph nodes in the along the left chest wall paired DIAGNOSTIC CATEGORY 2--BENIGN FINDING. NO CHANGE FROM COMPARISON. RECOMMENDATIONS: ROUTINE MAMMOGRAM AND CLINICAL EVALUATION IN 12 MONTHS. PLEASE NOTE: A NORMAL MAMMOGRAM DOES NOT EXCLUDE THE POSSIBILITY OF BREAST CANCER. A CLINICALLY SUSPICIOUS PALPABLE LUMP SHOULD BE BIOPSIED. Dictated by: J Carlos Cat MD on 01/28/2025 at 13:44 Approved by: J Carlos Cat MD on 01/28/2025 at 13:46
== END 2025-01-28 07:10 | disposition home or self-care (01) ==
LOC: MAMMO 07:09
PROVIDERS: PCP Family Medicine; Visit Provider Obstetrics & Gynecology
DX: Z12.31 Encounter for screening mammogram for malignant neoplasm of breast (principal); Z80.3 Family history of malignant neoplasm of breast; Z80.41 Family history of malignant neoplasm of ovary; Z80.1 Family history of malignant neoplasm of trachea, bronchus and lung
CPT/HCPCS: 77063; 77067

== ENCOUNTER 2025-01-28 07:10 | Outpatient (OUT) | payer OTHER, SELFPAY ==
--- OUTSIDE RECORDS SUMMARY | 2025-01-28 07:13 | XMS_ITS | CCD ---
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 Name Role Phone Nahid Mccoy Unavailable Clarice Hull Unavailable Sami Mccarty Primary Care Physician DR ABIGAIL GONSALVES V Consulting Unavailable LUL, [...] NON STAFF Primary Care Provider Unavailsalome Fuller [facility] Attending Provider Alina [facility] Attending Unavailable [facility] Unavailable NON STAFF Primary Care Unavailable Sami Mccarty MD Primary Care Provider [phone] BECCA SCHWARZ Attending Unavailable HOY, SAMI M [...] Unavailable Sami Mccarty MD Primary Care Provider [phone] Allergies Allergy Classification Reported Allergen(s) Allergy Type Date of Onset Reaction(s) Facility (10 sources) NITROFURANTOIN, MACROCRYSTALS / Nitrofurantoin, Monohydrate; Translations: [nitrofurantoin] Drug Allergy 05-01-20 18 Neck swelling (finding), Swelling [facility] (2 sources) Albuterol Drug Allergy [facility] Comment on above: NEED TO CUT DOWN ADR ENALIN TO PREVENT SEIZURES (3 sources) Bee/Wasp/Ant venom; Translations: [Bee Stings] Allergy to substance Nausea, Swelling [facility] (2 sources) PECANS 1 Food allergy [facility] Comment on above: AIRWAY CONSTRICTION (2 sources) bee venom Drug allergy (disorder) 06-09-20 15 [facility] (2 sources) egg extract Drug Allergy 06-09-20 15 [facility] (4 sources) Nitrofurantoin; Translations: [Macrobid] Drug Allergy 05-02-20 12 [facility] (2 sources) pecan pollen extract Drug Allergy [facility] (4 sources) tree nut, unspecified; Translations: [TREE NUT] Drug allergy (disorder) 06-09-20 15 [facility] (13 sources) Albuterol; Translations: [albuterol] Drug Allergy 07-16-20 17 Other, Other (See Comments) [facility] Repository (1 source) Nitrofurantoin Drug Allergy 10-01-20 22 [facility]ository (9 sources) Honey bee venom Allergy to substance 04-05-20 24 [facility] (9 sources) Nitrofurantoin Drug Allergy 05-01-20 18 Swelling [facility] (9 sources) Nitrofurantoin Drug Allergy 04-05-20 24 [facility] (9 sources) Egg-Derived Products Drug Allergy 04-05-20 24 [facility] (13 sources) Other; Translations: [OTHER] Propensity to adverse reactions 05-13-20 [facility] (2 sources) NITROFURANTOIN MONOHYD/M-CRYST; Translations: [NITROFURANTOIN MONOHYD/M-CRYST] Propensity to adverse reactions to drug (disorder) 05-01-20 [facility] (1 source) Egg; Translations: [Eggs] Food allergy (disorder) [facility] Repository (1 source) PECANS; Translations: [PECANS] Food allergy (disorder) [facility] (2 sources) BEE VENOM PROTEIN (HONEY [...] Status: Ordered take 1 capsule by mo [facility] once daily in the morning amphetamine-dextroamphetamine XR [...] take 1 tablet by mouth [facility] aspirin 325 mg EC tablet Take 1 tablet (325 mg total) by mouth in the morning. Active take 1 tablet by mouth once janett y Aspirin 81 81 MG 1 tablet Orally Once a day Active [facility] (3 sources) Start: 11-01-2024 FiberCon See I nstructions, 3 caps BID, Refills(s) 0 Start Date: 11/01/24 Status: Ordered take 1 tablet by mouth in the [facility] polycarbophil (FIBERCON) 625 mg tablet Take 1 tablet (625 mg total) by mouth in the morning. Active celecoxib 100 mg oral capsule (3 sources) Nonsteroidal Anti-inflammatory Drug Start: 11-01-2024 take 1 capsule by mouth twice daily celecoxib 100 mg Cap = 1 cap(s), Oral, BID, Refills(s) 0 Start Date: 11/01/24 Status: Ordered take 1 capsule by [facility] in the morning, then take 1 [...] 2 tablet 11/22/2024 11/26/2024 Active lactobacillus acidophilus [id number] unt / pectin 100 mg oral tablet [...] Ordered Start: 05-17-2023 [facility] metoprolol tartrate (Lopressor) 50 [...] Status: Ordered take 1 capsule by mo [facility] every twenty-four hours Omeprazole 40 MG 1 cap(s) p.o. 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 [facility] Comment on above: TESTS RESULT FLAG UN ITS REF RANGE LAB Clinician Provided Cytology Information Source.............Vagina No. of containers..01 ThinPrep Vial Age Algo ACOG Mya... FLAG LEGEND: L-Low Normal,H-High Normal,LL-Alert Low,HH-Alert High <-Panic Low,>-Panic High,A-Abnormal,AA-Critical Abnormal Performed at: 01 =G [address] [place] [address] Britta aWng MD, HPV APTIMA Negative Negative [facility] Comment on above: This nucleic acid am plification test detects fourteen high- risk HPV types (16,18,31,33,35,39,45,51,52,56,58,59,66,68) without differentiation. Performed at: =[address] [id number] [employer] Cutter Hand: Britta Wang MD, Phone: [phone] Performed at: [facility] [address] [place] [id number] [employer] C[employer] Hand: Kristian Waterman MD, Phone: [phone] IGP, APTIMA HPV, RFX 16/18,45 Note . [facility] Comment on above: TESTS RESULT FLAG UN ITS REF RANGE LAB DIAGNOSIS: 02 NEGATIVE FOR INTRAEPITHELIAL LESION OR MALIGNANCY. FUNGAL ORGANISMS MORPHOLOGICALLY CONSISTENT WITH VIVIANE SPECIES ARE PRESENT. Specimen adequacy: 02 Satisfactory for evaluation. Endocervical and/or squamous metaplastic cells (endocervical component) are present. Performed by: 02 Steve Saenz, Business Analytics Director (ASCP) . 02 Note: Note 03 The [...] High,A-Abnormal,AA-Critical Abnormal Performed at: 02 KWCYT [facility] [address] [place] [address] Kristian Waterman MD, 03 WB [facility] [address] [address] Britta Wang MD, SPATULA-ALONE [facility] Gastroenterology Office/Clin ic Noteon 11-01-2024 Gastroenterology Office/Clinic Note Gastroenterology Office/Clinic Note HPI Staff Patient is a 49 year old female who was referred by Dr Mccarty for elevated LFTs. LFTs did improve after being repeated a week later. previous EGD/ Colonoscopy - Friday, done at [place] with Dr. Li blood thinners- 325 daily [...] wisdom to (more content not included)... Normal [facility] Comment on above: Result Comment: Elec tronically Signed By: Delaney BURK, Vinayak Jimenez\.br\Date and Time Signed: 11/01/24 14:36 EST H PYLORI SCREENon 10-27-2024 H. pylori Org specific cx Ql (Sara fld) Negative Normal NEG [facility] Comment on above: Performed By: #### 4 4015-6 #### [facility] ([id number]) [address] [place] [address] [address] [place] [address] Surgical Pathologyon 024 Surgical Pathology Normal [facility] Comment on above: Result Comment: [facility] [address] [place] [address] Surgical Pathology Consultation ADDENDUM [place] Patient Name:HORACIO KEATING:1975 (Age: 49)Gender:FTaken:4Reported:4Physician(s):Zaheer Li MD ([phone])Copy To: Rec. #:[id number]: #[id number] Final Pathologic Diagnosis 1. Antrum biopsy: Mild [...] Electronically Signed Out gisel/11/05/2024Smith Clark MD Addendum ([facility]) Date Reported: 11/09/2024 In specimen part 1, immunohistochemistry (with appropriate controls) for Helicobacter pylori organisms is NEGATIVE. Electronically Signed Out Smith Clark MD Interpret[place] [address], License number: [id number]. Clinical History Positive fecal occult blood Gross Description 1. Received in formalin labeled KEATING, antrum are two pink-julian soft tissue bits, 0.1 and 0.3 cm in greatest dimension. The specimens are filtered and submitted entirely in a single cassette. (1, ns, [id number], m8) Gemini 2. Received in formalin labeled KEATING, appendiceal are three pink-julian soft tissue bits and strips, 0.3, 0.3, and 0.6 cm in greatest dimension. The specimens are filtered and submitted entirely in a single cassette. (1, ns, [id number], m8) YEISON vaz/10/29/2024GR Specimen(s) Received 1: Antrum biopsy 2: Appendiceal orifice Fee Codes(s): 1; 57065, 64695 2; 47723 Basic Metabolic Panelon 09-3 GFR/1.73 sq M.predicted MDRD (S/P/Bld) [Vol rate/Area] mL/min/{1.73_m2} Normal [facility] Comment on above: Performed By: #### L IPID, BMP #### [facility] [address] [place] [address] [place] Calcium [Mass/volume] in Ser um or PlasmaOrdered By: Dedrick Fuller on 08-30-2024 Calcium [Mass/Vol] 9.9 mg/dL Normal 8.6-10.3 [facility] Comment on above: Performed By: #### L IPID, BMP #### [facility] [address] [place] [address] [place] Carbon dioxide, total [Moles /volume] in Serum or PlasmaOrdered By: Dedrick Fuller on 08-30-2024 CO2 [Moles/Vol] 26.6 mmol/L Normal 21.0-31.0 [facility] Comment on above: Performed By: #### L IPID, BMP #### [facility] [address] [place] [address] [place] Chloride [Moles/volume] in S altagracia or PlasmaOrdered By: Dedrick Fuller on 08-30-2024 Chloride [Moles/Vol] 104 mmol/L Normal 98-[address] [facility] Comment on above: Performed By: #### L IPID, BMP #### [facility] [address] [place] [address] [place] Cholesterol [Mass/volume] in Serum or PlasmaOrdered By: Dedrick Fuller on 08-30-2024 Cholesterol [Mass/Vol] 218 mg/dL High 140-200 [facility] Comment on above: Chol less than 200 m g/dl low riskChol 201-239 mg/dl borderline riskChol 240 mg/dl and greater high risk Result Comment: Chol less than 200 mg/dl low risk Chol 201-239 mg/dl borderline risk Chol 240 mg/dl and greater high risk Performed By: #### L IPID, BMP #### [facility] [address] [place] [address] [place] Cholesterol in LDL Calc [Mas s/Vol]Ordered By: Dedrick Fuller on 08-30-2024 Cholesterol in LDL [Mass/Vol] 134 mg/dL High 0-100 [facility] Comment on above: LDL ATP III CLASSIFI CATIONLDL less than 100 mg/dL OptimalLDL 100-129 mg/dL Near or above optimalLDL 130-159 mg/dL Borderline highLDL 160-189 mg/dL HighLDL greater than 189 mg/dL Very high Cholesterol in VLDL Calc [Ma ss/Vol]Ordered By: Dedrick Fuller on 08-30-2024 Cholesterol in VLDL [Mass/Vol] 46 mg/dL [facility] Creatinine [Mass/volume] in Serum or PlasmaOrdered By: Dedrick Fuller on 08-30-2024 Creatinine [Mass/Vol] 0.75 mg/dL Normal 0.60-1.20 [facility] Comment on above: Performed By: #### L IPID, BMP #### [facility] [address] Glucose [Mass/volume] in Ser um or PlasmaOrdered By: Dedrick Fuller on 08-30-2024 Glucose [Mass/Vol] 95 mg/dL Normal 70-100 [facility] Comment on above: ADA recommended refe rence rangeRandom Glucose Reference Range is dependent on time and content of last meal. Glucose of more than 200 mg/dL in a nonstressed, ambulatory subject supports the diagnosis of Diabetes Mellitus. Result Comment: [place] om Glucose Reference Range is dependent on time and content of last meal. Glucose of more than 200 mg/dL in a nonstressed, ambulatory subject supports the diagnosis of Diabetes Mellitus. ADA recommended reference range Performed By: #### L IPID, BMP #### [facility] [address] [place] [id number] [place] Lipid Panelon 08-30-2024 LDL Cholesterol,Calculated 134 mg/dL High 0-100 [facility] Comment on above: Result Comment: LDL ATP III CLASSIFICATION LDL less than 100 mg/dL Optimal LDL 100-129 mg/dL Near or above optimal LDL 130-159 mg/dL Borderline high LDL 160-189 mg/dL High LDL greater than 189 mg/dL Very high Performed By: #### L IPID, BMP #### [facility] [address] [place] [address] Triglyceride w/Reflex 231 mg/dL High 0-149 [facility] Comment on above: Result Comment: TRIG ATP III CLASSIFICATION TRIG less than 150 mg/dL Normal TRIG 150-199 mg/dL Borderline high TRIG 200-500 mg/dL High TRIG greater than 500 mg/dL Very high Standard traceable to the Center for Disease Conrtrol and Prevention (CDC) test method. Performed By: #### L IPID, BMP #### [facility] [address] [place] [address] VLDL CHOLESTEROL 46 mg/dL Normal [facility] Comment on above: Performed By: #### L IPID, BMP #### [address] No Panel InformationOrdered By: Dedrick Fuller on 08-30-2024 Estimated GFR (CKD-EPI) > 60.0 mL/Min [facility] Creatinine Clearance (Chem N/A [facility] Potassium [Moles/volume] in Serum or PlasmaOrdered By: Dedrick Fuller on 08-30-2024 Potassium [Moles/Vol] 4.1 mmol/L Normal 3.5-5.1 [facility] Comment on above: Performed By: #### L IPID, BMP #### [address] Serum or plasma anion gap de terminationOrdered By: Dedrick Fuller on 08-30-2024 Anion gap [Moles/Vol] 13.5 mmol/L Normal 6.0-15.0 [facility] Comment on above: Performed By: #### L IPID, BMP #### [address] Serum or plasma high density lipoprotein (HDL) cholesterol measurementOrdered By: Dedrick Fuller on 08-30-2024 Cholesterol in HDL [Mass/Vol] 38 mg/dL Normal 23-92 [facility] Comment on above: HDL CHOL ATP-III CLA SSIFICATION Cardiovascular RiskHDL > or equal to 60 mg/dL LOWHDL < 40 mg/dL HIGH Result Comment: HDL CHOL ATP-III CLASSIFICATION Cardiovascular Risk HDL > or equal to 60 mg/dL LOW HDL < 40 mg/dL HIGH Performed By: #### L IPID, BMP #### [facility] [address] [place] [address] Serum or plasma total choles terol/high density lipoprotein (HDL) cholesterol mass ratOrdered By: Dedrick Fuller on 08-30-2024 Cholesterol.total/Mirta sterol in HDL [Mass ratio] 5.7 {ratio} Normal <5.0 [facility] Comment on above: Result Comment: PERF ORMED BY: [place] [address] PATHOLOGIST LAWYER CRIMINAL IRMA MARCELO M.D. Performed By: #### L IPID, BMP #### [address] Sodium [Moles/volume] in Ser um or PlasmaOrdered By: Dedrick Fuller on 08-30-2024 Sodium [Moles/Vol] 140 mmol/L Normal 136-145 [facility] Comment on above: Performed By: #### L IPID, BMP #### [address] Triglyceride [Mass/volume] i n Serum or PlasmaOrdered By: Dedrick Fuller on 08-30-2024 Triglyceride [Mass/Vol] 231 mg/dL High 0-149 [facility] Comment on above: TRIG ATP III CLASSIF ICATIONTRIG less than 150 mg/dL NormalTRIG 150-199 mg/dL Borderline highTRIG 200-500 mg/dL High TRIG greater than 500 mg/dL Very highStandard traceable to the Center for Disease Conrtrol and Prevention (CDC) test method. Urea nitrogen [Mass/volume] in Serum or PlasmaOrdered By: Dedirck Fuller on 08-30-2024 Urea nitrogen [Mass/Vol] 18 mg/dL Normal 7-25 [facility] Comment on above: Performed By: #### L IPID, BMP #### [address] Coding Summaryon 03-19-2024 Coding Summary HTMLBase 64 KixuatexIRx8lXu+PGhlYWQ +AO1JNLLdI03fpDHimD5rM9 NMTElOSywgQVBQTElOSyIgb gCnAE7hjWDmJYZc IC8+KR5mEXBkRhhiaHXiz0V 9mUM2S23sly0mXIatlEV6YA SlRpMbxaieo2hdhBa5OJvaO mluOyBt QINicK42CBY6uE05Gd48xFM hsLHpj5sjeHj4CcKmCECsKQ N5cIdqTWxuj4IvVWBpQ31zx MAzc6C4 BRDggBeivWWjMoGkqMH6zH2 bLBbznqopv3eflboyItg0os 13fIKpb5Y2cTD8J0GyqkW3U GJvbGQg JsrxmIDQmD9cjflyk4smlxz kQrZgXECgHQm5ABt5WIKppL anWkBkFD92YRG7ITApayKfQ 2FsLWFs oBrqUeX6r3V3Ah9NV2LFXmo oK6SRKYKYFRorgWZ+PC90cj 72E9PxWaduXka4IHElAXN3q YM6wQ3p GJJtODzjd0J8kDM7W6HvzfX dmo3nl0heZPBaZMpkZ76huH Uhz4M3OBCulBL9UPVxxZzmV iBzaG93 Oyc+XRWbnNeur2UxHmhnw8i uo2enfHs6KmtiSQRyflPkiF ghLVK6g0LaQo6kRXOhbKY9x FW1yP5b XiVjQkX7GJktO194QoRvzBN cTicnS38vI2LpfMH+PHRyPj l8GIOttTjuOR4rE2DzMWHva mctbGVm vPyyOP8eZBWcuqicAWCzfG9 pBDEjM1g1BxMcEjI8KAdnR1 CdFRWmqtjaRj33yN7sYbBuP kR3NBsf Y4NufuE8PLSlaHRzBDquTFQ 3F19ca4C0TCEcMUIqHVU3cI Q7mD0zoGskywjilBZvyWwbt mVydGlj LEvhTQbvG662TOMxeXiqEgT vZGluZyBEYXRlOiAgMDQvMT kvMjAyNDwvdGQ+NMBrXUF4w WxlPSAn pMCxWFelNw4baTsjiNicGJ5 jJMUblvfoKWYedR0qLGXolR AbzYdrVU3bQLPuojylv956A iAxMHB0 YOPczAQdR7NseK3nEjBhZNT aIXBuC2TnnDDpISkzK188PL fbAjC3MHPjlcFvX8JbXXTgl WduOiB0 p0B6Vw2Id0TubdvpW2FjbRX tRmGsFcrtGOl8J1XhYwoccF I+VC06SJRwPO65ELr1FLO3c WxlPSdi OPDzH5JhxG8uJuGyXCJtIWQ kOyc+PHRhYmxlIHdpZHRoPS kgPQSqDnLdnQikZQ2fFf0xA GVyLWNv bCfkfDLeNvUxf4kpSKLgSHi pPO7hpRyjC6OyoLK5DYUlz6 c7Mo57Y93yL7IrcYI+PGNvb GB0mWI1 rO1lZiHsTfS4JJoxA816WlF jlOQxKtfka9xil8umiUe9Fx Z4BRVqztRbnMfmSDY4b0FoY x31Q14w IHdpZHRoPSIxNSUiIHZhbGl azh5nqE9kZi7+KEIuxTR6sE A1kO7rAsUdGxR2MCcyA348X nRvcCIv Zgezx4iab9ltfUt2FwCmLSC kgoWaiPmzDCL7r1FlXo57Q9 IprLssj1JmOkx7hy90zFMtv 5T2jDN7 E2TgKCCkcngtjKTagIahMB2 rVGEonxsmVVJpgL1qSEJlR2 u5ZjCxBjK7CRshE0ZqobD6N GJvbGQg VJWanRTNfM6ftlrsx5ggstu pPgHfXFDtWTx9ZFm6MJMdjD raUqGcRJD4KzR0UTR9qPRvz B9tyKqi rwdltA8pRaj+TRY4aYSdvYE OMU5kCjypgCT+KWNuJOX7sU wtJAwlYLJcfB2uFBRcL7w9F iAwLjA1 BXclS6VcmhW1RCHpuDVxHZT hrVRXdH2obdjxo4stxqcgCl ErEYPgZXx4TTf5EHQmdIttR iBsZWZ0 CnQ9ROA3mUSabT6dzXmtpqw tiE9zEty+OgahfYozXDB3OC t2C9QyMxm1OTSpcCuvLT1rw GFkZGlu Wo1zpPnzcXoqYD4iAATvazn kc530JkVgq7kkHISsqHBfXU oqDUB1K98gl4W9DKTaZJOxE TN8vMQ0 mK0keVrbhpkdlRAorIfwxzP mlPrfUKxqNTjnB274HLVtlH vbJzJaRIh5H8OuVng7FUHhg HudXB9q cBNyOVsfJb6nbWdlvSkfVE5 mOOIbanbxb733RrEll6myVH GjxRFrEJvbMOU2E28xe9Y0X CMwMDAw AVI8fDI6jZ7mlTzvgnqniVC mdDsgdmVydGljYWwtYWxpZ2 38VINuyNraRaJceMe8S4GoQ qi6UCAs xMswQW3pbXTfIZtzDc3lmCv beXshGA9xUYGtnofhs589Cx Ukp9kaCVXuqLUkSCqlTCO3A 18mk7M0 WAPmTVVcESK6uWI7kH7qzRy nbjogbGVmdDsgdmVydGljYW rgYLeuY649PMIrlHyjRxQem GllbnQg FApoAOe4I0GrSwtmfYZ+PC9 1ZVOxNS54hGOjbNVam9fkxQ j8BrZqSFFxPEC8uBkdFAaen 3JkZXIt I29ozZPfj9D4HRWavOhqbFQ rJgJvhHW9iE3rXYtcjhxhn2 jowlsqBvfhg5osgr56zH65Y 29sIHdp ZHRoPSIzMCUiIHZhbGlnbj0 pwP6rZn4+REEbrMD8jQU9mL 4cXAItYdL3OVisQ712CeNqa CIvPjxj n1ifz6izlRb6CbM3ZOFtmqN caHnxSZR3i8ZjFn37N98vXJ dpZHRoPSIyMCUiIHZhbGlnb g9mhQ0z Ii8+NXNffFR6mAW9dD6jKyA fDqA8YJxzI253IfOhiGTdPb ogN69nT4PguZH+QQZrRcf6C CBzdHls ZS7kuTAuHRifKc8qNZL5WkU yHmVbMHsrY8VnUNRbouryrl zwhMY5OBFgSWFybN22Bq9di DogMTBw lJKWfB2hubkrw0xtetlaNnH mHIKjZHk1NDb6HDKavPbbCt NqQWL1SoK4GOJ1vNEliP5jc Glnbjog fA5cR5AhDRRokofwEf79iJ4 nDzViLbN6IEefHbz+Q09PTE NJJTDNWUITIM8EXU6GN87VW TwvdGQ+ XDHiZGK7kHxeLAcbLPIksK0 bDHQuC6u3YtRuFyN4BUwaB5 QgBEFctgavZk55vH5lPtFaH cC1FNis X2UtsyA5JTJwnPDuGTjdUQM 2D89fa6B7ATKbPUQsJFK8vP G0pI6voCihkmgpgMDoyDkiu mVydGlj VTpgJJutW427SKFzzVpzSpZ 4LfC5OzQ9EcR7C0PxXat2NZ WwuUdlIY0wpXXfFEypFb6ay WdodDog LK7hNIBdjncuCQTqaU7cCXD jsDZfqQgkBI0bCTCncjoeo1 39BkXhQDL1EEOprNNwN8Lwg P7kZcAd APQmXVMrS3KzsWOiELnnM12 3DUhfShM9HZEfwmOqR6HxIH QgtAfoCtI9r2L4Uz73UnOSV WFyczwv dGQ+ISScKBB8wTecQAlzJLB buY0fXYNpS9s9TaJhTlZ0SO atX6YdJHJluamnSg70rN6xO iAwLjA1 YTonZ6QsacU3BRJjzWJeKIu rBMF0Q79oj0W0KESqYLXvQP W6zHN3eG9gbDjcphitwYPyd DsgdmVy zDarAXigIFfzS634ZIHaqNq nPkZFTUFMRTwvdGQ+PHRkIH B3xZceDPzdUJXajE1iUWMxS 5x6DjMo AaO1UJkcP8BkWHNywpenGa7 6mK1cJaSoSlE0RBorB3Kkdj G0PGLdyLAjZTnsFJT5H30in 4Q5HPAa COAlPIG0vZI4nV3xuVazkql gbGVmdDsgdmVydGljYWwtYW thZ131PIUoiIsfFaAaACVkK N7tsLri dGQ+PB04ja15D3FmEzbiOum 0AVFgPRG4wHA7tO1qXKAsXG nhk7D5bEE2R1QpteXtsq3pp 2xsYXBz KQhzE30ycKMcr3X1FDPxxJP 6BCEufKpiMnQfpJ00Gnk+PG InvRdtd5RpVqylk1jyq9vjl Bj0TrAd DVProbPbdJoqMMU2u0XqZc2 7N17rSQrtYMNeKEUgWQGrGV PtsGfylt7ppS7bNn2+PGNvb EH7qJY3 mQ0pTcZrHcV4EKyjU389GwK mvOPqRpzit5bho4thsRu2Zd HmGSAbqiKrvWraZXC9l0FjS k44M0Ho gAvbk1AsIyj9ho37qKMjn1X 7jVI0B0PvVPDtwidmmRDkrQ ngKF0fEJIsacgqLGCvgM1bF NNbA6k7 JkYbIwR0MUhrC2NcjjT7VSF itSWdEBFztHCUxD4qoypsh1 ipyixmBgTaZIKqAJs0JGl5R WFsaWdu RoSzKSU2SjT5ZRB8kHJabW7 eiDfowfdvpG0eIxi+UGh5c2 gzuLDkKQ4cyHZ8NO30DX14l LRzh5M2 jDC2T5SiRQYysaiiblsfuCS 3LTUyUDEqiR44Bs1cqUovNj 4zFHYcZKY9OKOjbJXjB9Udc O0yQvAf ZQCnQQSkG0VsjGSbONozI15 0GRwdJeK7VTDihzZqV5OmLW TybNnfAtN9x0N8Wn7RZB16Z C27NP18 wPRsw4B4lLF2H9SvCEDelpt nqssyyYO8PRSbRVKgmT97Xp 7vbOlvKl1wBXPcZUE6SUBqj QVaS7Dj wW9oBhGsVUGzHWKtY8GquXE bKUohH332OUzpFsG5UTErdn RvJ5DePFVapTtmLgZ6g8A0D f6CIy40 FK11DF16bILvj9S4mSU7J4M zJAAetdcsllfmbZI4UOFzQO FqeI00La5moHvwIi1bTUXoE ZS6SZPy hMLqY1TlwR9bKgBgRQXnDSO cU0MyqQMqBNzsY074LJckSo Y7OEWuxkCeH6BzVNPnnIoqP bQ4k1Q7 Xo8UAYaigeu0S1JcEmvwlOS +TQ77HEHqEU58vEZhkOUhh4 hzaHz8ZpTzIYFzWRO4pRhpT Pmcj6Cl ZXI (more content not included)... Normal [facility] Ambulance Noteon 03-17-2024 Ambulance Note [id number] IFF Normal [facility] C Urineon 03-17-2024 C Urine Urine Culture ordere d as a result of parameters set on specific urine dip and urine microsopic results. >100,000 cfu/ml Lactobacillus species Normal vaginal oleg isolated 10,000 cfu/ml Corynebacterium species (DIPTHEROID) No YOLANDE performed on this organism No pathogens isolated [facility] Comment on above: Performed By: #### 5 [id number], [id number], [id number] ####[facility] (DEFAULT)[address] [place] [address] .Auto Diff 1on 03-15-2024 Auto Parker % 3 % Normal 1-12 [facility] Comment on above: Performed By: #### 5 [id number], [id number], [id number], [id number], [id number], [id number], [id number] #### [facility] (DEFAULT) [address] [place] [address] Baso Abs# 0.1 x10 Normal 0.0-0.2 [facility] Comment on above: Performed By: #### 5 [id number], [id number], [id number], [id number], 2126102748, 8956197, 4587860 #### [facility] (DEFAULT) [address] [place] [address] Basophils/100 WBC (Bld) 0.7 % Normal 0.2-2.0 [facility] Comment on above: Performed By: #### 5 [id number], [id number], [id number], 91252570, [id number], 3902662, 1464221 #### [facility] (DEFAULT) [address] [place] [address] Eos Abs# 0.1 x10 Normal 0.0-0.4 [facility] Comment on above: Performed By: #### 5 [id number], [id number], [id number], 91071350, 7321786928, 8569873, 7232964 #### [facility] (DEFAULT) [address] [place] [address] Eosinophils/100 WBC (Bld) 0.7 % Low 0.9-4.0 [facility] Comment on above: Performed By: #### 5 [id number], [id number], 1383181385, 90034036, 8279412768, 4551965, 5619432 #### [facility] (DEFAULT) [address] [place] [address] Lymph Abs# 2.2 x10 Normal 1.3-2.9 [facility] Comment on above: Performed By: #### 5 [id number], [id number], 7121113707, 01973772, [id number], 3006645, 3772697 #### [facility] (DEFAULT) [address] [place] [address] Lymphocytes/100 WBC (Bld) 14 % Normal 14-48 [facility] Comment on above: Performed By: #### 5 [id number], [id number], 0720053410, 89101454, 7671968238, 0935355, 4869370 #### [facility] (DEFAULT) [address] [place] [address] Parker Abs# 0.5 x10 Normal 0.0-0.8 [facility] Comment on above: Performed By: #### 5 [id number], [id number], [id number], 30790580, 6811893419, 6279413, 4358358 #### [facility] (DEFAULT) [address] [place] [address] Neut Abs# 13.5 x10 High 1.5-9.2 [facility] Comment on above: Result Comment: Slid e Reviewed Performed By: #### 5 [id number], [id number], [id number], 73484782, 8128095756, 9788016, 8202263 #### [facility] (DEFAULT) [address] [place] [address] Neutrophils/100 WBC (Bld) 82 % Normal 44-88 [facility] Comment on above: Performed By: #### 5 [id number], [id number], [id number], 21937040, [id number], 2087132, 5335388 #### [facility] (DEFAULT) [address] [place] [address] CBC w/ Auto Diffon Erythrocyte distribution width (RBC) [Ratio] 13.3 % Normal 11.5-15.0 [facility] Comment on above: Performed By: #### 5 [id number], 7473502185, 6104041988, 97305769, 6713014319, 3591842, 3372937 #### [facility] (DEFAULT) [address] [place] [address] Hematocrit (Bld) [Volume fraction] 45.0 % High 33.7-40.4 [facility] Comment on above: Performed By: #### 5 [id number], 8687187079, 7359029928, 71228779, 6541721431, 3879173, 0932666 #### [facility] (DEFAULT) [address] [place] [address] Hemoglobin (Bld) [Mass/Vol] 15.0 g/dL Normal 11.3-15.9 [facility] Comment on above: Performed By: #### 5 [id number], 4041111871, 2061781937, 80317848, 4262777386, 3120030, 2695041 #### [facility] (DEFAULT) [address] [place] [address] Man Diff? Auto Invalid Interpretation Code [facility] Comment on above: Performed By: #### 5 [id number], 9666417384, 1355220010, 52633431, 1602312025, 3224866, 9660661 #### [facility] (DEFAULT) [address] [place] [address] MCH (RBC) [Entitic mass] 32 pg Normal 24-34 [facility] Comment on above: Performed By: #### 5 [id number], 3932793549, 5298102032, 46414884, 5621482064, 5557806, 6921135 #### [facility] (DEFAULT) [address] [place] [address]47 MCHC (RBC) [Mass/Vol] 33 g/dL Normal 26-37 [facility] Comment on above: Performed By: #### 5 [id number], 4936901670, 8802495482, 37300511, 9566010077, 7332564, 3797211 #### [facility] (DEFAULT) [address] [place] [address] 95716 MCV (RBC) [Entitic vol] 95 fL Normal 81-100 [facility] Comment on above: Performed By: #### 5 [id number], 2572525069, 8789726951, 21434877, 3786757140, 7050083, 0989375 #### [facility] (DEFAULT) [address] [place] [address] 49640 Platelet 292 x10 Normal 138-427 [facility] Comment on above: Performed By: #### 5 612959586, 3282550632, 4793749252, 15134162, 3238366775, 7372588, 6635801 #### [facility] (DEFAULT) [address] [place] [address] 38240 Platelet mean volume (Bld) [Entitic vol] 8.7 fL Normal 6.3-10.2 [facility] Comment on above: Performed By: #### 5 [id number], 8679432875, 8653461840, 90552795, 5515978638, 2940879, 7671413 #### [facility] (DEFAULT) [address] [place] [address] 59727 RBC 4.74 x10 Normal 3.70-5.30 [facility] Comment on above: Performed By: #### 5 [id number], 8355800070, 3154877118, 59308982, 5331140868, 7163448, 9065103 #### [facility] (DEFAULT) [address] [place] [address] WBC 16.4 x10 High 3.5-10.5 [facility] Comment on above: Performed By: #### 5 [id number], 0786722787, 4210534246, 60471117, 4503806699, 8155850, 0140441 #### [facility] (DEFAULT) [address] [place] [address] CMP Standardon 03-15-2024 eGFR Non AA >60 Invalid Interpretation Code [facility] Comment on above: Performed By: #### 5 [id number], 0639117608, 8634932523, 75459076, 3786618074, 6262458, 7925356 #### [facility] (DEFAULT) [address] [place] [address] eGFR AA >60 Invalid Interpretation Code [facility] Comment on above: Performed By: #### 5 [id number], 7498729225, 5702571081, 39901788, 5444197468, 6731457, 0915448 #### [facility] (DEFAULT) [address] [place] [address] Albumin [Mass/Vol] 4.1 g/dL Normal 3.5-5.0 [facility] Comment on above: Performed By: #### 5 [id number], 1617113113, 7738375384, 89836618, 6072835776, 4807488, 2516126 #### [facility] (DEFAULT) [address] [place] [address] 13541 Albumin/Globulin [Mass ratio] 1.3 {ratio} Low 1.4-2.6 [facility] Comment on above: Performed By: #### 5 [id number], 2323691601, 9541938710, 56548391, 4520252060, 2703770, 8666211 #### [facility] (DEFAULT) [address] [place] [address] Alk Phos 39 IU/L Normal 32-91 [facility] Comment on above: Performed By: #### 5 [id number], 9842846757, 0542490096, 75800564, 1529896353, 1584798, 6420391 #### [facility] (DEFAULT) [address] [place] [address] 74048 ALT [Catalytic activity/Vol] 32.0 U/L Normal 14.0-54.0 [facility] Comment on above: Performed By: #### 5 260602462, 8932116974, 7219965542, 36497788, 1471389373, 3557785, 3544398 #### [facility] (DEFAULT) [address] [place] [address] 56397 Anion gap [Moles/Vol] 13.0 mmol/L Normal 5.0-19.0 [facility] Comment on above: Performed By: #### 5 [id number], 0736368654, 8363420000, 13919483, 3334698975, 9626330, 4492189 #### [facility] (DEFAULT) [address] [place] [address] 40144 AST [Catalytic activity/Vol] 25 U/L Normal 15-41 [facility] Comment on above: Performed By: #### 5 488649015, 7502668391, 4126386126, 55614716, 4948872688, 2089246, 5229062 #### [facility] (DEFAULT) [address] [place] [address] 27049 Bili Total 1.4 mg/dL High 0.3-1.2 [facility] Comment on above: Performed By: #### 5 214601145, 0038405502, 3094864583, 62541163, 6415374713, 1222754, 9736526 #### [facility] (DEFAULT) [address] [place] [address] 69147 Calcium [Mass/Vol] 8.8 mg/dL Low 8.9-10.3 [facility] Comment on above: Performed By: #### 5 082283369, 3595871791, 2138157742, 01075997, 5181044443, 0485055, 4523563 #### [facility] (DEFAULT) [address] [place] [address] 19886 Chloride [Moles/Vol] 105 mmol/L Normal 101-111 [facility] Comment on above: Performed By: #### 5 [id number], 1027561107, 2871514161, 69841261, 8184566519, 5250005, 1512655 #### [facility] (DEFAULT) [address] [place] [address] 50064 CO2 [Moles/Vol] 24 mmol/L Normal 21-32 [facility] Comment on above: Performed By: #### 5 841340800, 2825314893, 7803088369, 21661722, 7504856565, 1973363, 6925718 #### [facility] (DEFAULT) [address] [place] [address] 86074 Creatinine [Mass/Vol] 0.72 mg/dL Normal 0.60-1.30 [facility] Comment on above: Performed By: #### 5 [id number], 2082947833, 4870514558, 05107361, 9090318018, 2311435, 5177168 #### [facility] (DEFAULT) [address] [place] [address] 14682 Globulin (S) [Mass/Vol] 3.0 g/dL Normal 1.5-4.3 [facility] Comment on above: Performed By: #### 5 [id number], 3773028209, 8513639003, 30701894, 2240433327, 6843508, 3714654 #### [facility] (DEFAULT) [address] [place] [address] 55940 Glucose [Mass/Vol] 124.0 mg/dL High 74.0-118.0 [facility] Comment on above: Performed By: #### 5 [id number], 6679575489, 6680954374, 75738898, 6759838066, 6787919, 1897817 #### [facility] (DEFAULT) [address] [place] [address] 71621 Osmolality 278 mOsm/L Invalid Interpretation Code [facility] Comment on above: Performed By: #### 5 [id number], 9052760332, 8215352939, 28052380, 1003394323, 7486400, 1449967 #### [facility] (DEFAULT) [address] [place] [address] 77854 Potassium [Moles/Vol] 4.0 mmol/L Normal 3.6-5.1 [facility] Comment on above: Performed By: #### 5 578975871, 1174066639, 0250434041, 60836551, 7529980296, 2552877, 8315389 #### [facility] (DEFAULT) [address] [place] [address] 56860 Protein [Mass/Vol] 7.1 g/dL Normal 6.5-8.1 [facility] Comment on above: Performed By: #### 5 852394484, 3506102214, 7395328719, 53875279, 6658911283, 2011395, 1075057 #### [facility] (DEFAULT) [address] [place] [address] 89700 Sodium [Moles/Vol] 138.0 mmol/L Normal 136.0-144.0 [facility] Comment on above: Performed By: #### 5 427651201, 5027702546, 0959462950, 23020006, 2831959925, 7229223, 0938563 #### [facility] (DEFAULT) [address] [place] [address] 57478 Urea nitrogen [Mass/Vol] 15 mg/dL Normal 8-26 [facility] Comment on above: Performed By: #### 5 330566798, 0834578625, 0210557145, 80982262, 8985647464, 3391644, 8091213 #### [facility] (DEFAULT) [address] [place] [address] 51003 Urea nitrogen/Creatinine [Mass ratio] 20.8 mg/mg High 4.6-16.2 [facility] Comment on above: Performed By: #### 5 [id number], 8074200322, 6248067713, 22896281, 8842412802, 1354099, 5140919 #### [facility] (DEFAULT) [address] [place] [address] 10144 Breakpoint Chem Normal [facility] Comment on above: Performed By: #### 5 [id number], 5686156958, 0539658356, 42293344, 7102996776, 2955510, 0721989 #### [facility] (DEFAULT) [address] [place] [address] 16253 ED Clinical Summaryon 2023 ED Clinical Summary [facility] - Emergency Department [address] [place] [address] 58036 ED Clinical Summary PERSON INFORMATION Name: HORACIO KEATING Age: 48 Years Sex: FEMALE : 1975 MRN: Acct#: Visit Reason: Shortness of breath; Anxiety; Blood pressure check; SOB Arrival: 03/15/2024 17:56:51 Discharge: 03/15/2024 20:31:00 LOS: 000 02:35 Check In: 03/15/2024 17:56:51 Checkout:03/15/2024 20:31:00 Address: [address] [place] [address] PCP: SAMI MCCARTY PROVIDER INFORMATION Provider Role Assigned Unassigned Nicola Neff DO ED Provider 03/15/2024 18:07:25 Solange MALHOTRA, Shanika Lawton ED Nurse 03/15/2024 18:08:57 Joanna Angeles SERVICE SPECIALIST Nurse 03/15/2024 19:24:01 VITALS INFORMATION Vital Sign [...] Physical Exa (more content not included)... Normal [facility] ED Note - Physicianon 2023 ED [...] lymphadenopathy. Psychiatric: (more content not included)... Normal [facility] ED Note-Nursingon 03-15-2024 ED Note-Nursing Patient presents to the ER via [facility] for shortness of breath, anxiety. Patient [...] 12 lead was regular in rate Normal [facility] ED Patient Summaryon 024 ED Patient Summary [facility] - Emergency Department [address] [place] [address] PATIENT DISCHARGE INSTRUCTIONS Patient Information Name: HORACIO KEATING Age: 48 Years Date of : 1975 Reason For Visit: Shortness of breath; Anxiety; Blood pressure check; SOB Arrival Time: 03/15/2024 17:56:51 Primary Care Physician: SAMI MCCARTY Attending Physician: Nicola Neff DO Comment: Visit Diagnosis: Diagnoses This Visit Anxiety ([id number]) Blood pressure check ([id number]) Hypertension (I10) Panic attack (F41.0) Shortness of breath ([id number]) Urinary tract infection (N39.0) The Pharmacy at [facility] is open Friday through Friday [...] alcohol and/or drug addiction problems; contact the [facility] 23/06 Crisis Hotline -Text 4HDMT xs [phone]. If you received any narcotics, sedation, or [...] legal documents With: Address: When: SAMI MCCARTY [address] [place] [address] [place] [address] Business (1) Within 3 to 5 days Comments: Call for follow up appointment Return if symptoms worsen Medication Information: The exam and treatment you received today in the [facility] Emergency Department were for an [...] so we can reach you if necessary. [facility] Emergency Department has provided you with a complete list of medications post discharge. Please inform your lens polisher hand/provider of your visit and for further instruction [...] Vitals an (more content not included)... Normal [facility] Extra [facility] 03-15-2024 Tube Collected Yes Invalid Interpretation Code [facility] Comment on above: Performed By: #### 5 [id number], 0234832408, 7965248791, 82529548, 1292079763, 2920662, 2376501 #### [facility] (DEFAULT) [address] [place] [address] [facility] 03-15-2024 Tube Collected Yes Invalid Interpretation Code [facility] Comment on above: Performed By: #### 5 [id number], 1359984853, 2622082649, 33737662, 7565941692, 3959651, 2703937 #### [facility] (DEFAULT) [address] [place] [address] 46342 PTon 03-15-2024 INR Coag (PPP) [Relative time] 0.94 {INR} Normal 0.91-1.11 [facility] Comment on above: Performed By: #### 5 [id number], 7351067007, 3379036100, 29224352, 6681695678, 2332466, 7405441 #### [facility] (DEFAULT) [address] [place] [address] PT 9.8 second(s) Normal 9.7-11.8 [facility] Comment on above: Performed By: #### 5 [id number], 3490495322, 9855693152, 46983141, 6646203410, 7045347, 6686910 #### [facility] (DEFAULT) [address] [place] [address] TnI HSon 03-15-2024 Troponin I High Sensitivity 7.7 pg/mL Normal <=15.0 [facility] Comment on above: Performed By: #### 5 [id number], 0551697340, 7349791527, 05433685, 3501848668, 4167568, 1985687 #### [facility] (DEFAULT) [address] [place] [address] UA [id number] 03-15-2024 UA Amorph. 1+ Normal [facility] Comment on above: Order Comment: Urina lysis Microscopic order added on by [employer] Rules system. Performed By: #### 5 [id number], 8425361929, 7559408 ####[facility] (DEFAULT)[address] [place] [address] 23409 UA Bacteria 3+ Normal [facility] Comment on above: Order Comment: Urina lysis Microscopic order added on by [employer] Rules system. Performed By: #### 5 [id number], 0456464079, 8287531 ####[facility] (DEFAULT)[address] [place] [address] 49303 UA Mucous 1+ Normal [facility] Comment on above: Order Comment: Urina lysis Microscopic order added on by [employer] Rules system. Performed By: #### 5 7561710, 7053994336, 4443739 ####[facility] (DEFAULT)[address] [place] [address] 30109 UA RBC 3-5 [facility] Comment on above: Order Comment: Urina lysis Microscopic order added on by [employer] Rules system. Performed By: #### 5 3983254, 5277413231, 0413293 ####[facility] (DEFAULT)[address] [place] [address] UA Renal Epi Rare [facility] Comment on above: Order Comment: Urina lysis Microscopic order added on by [employer] system. Performed By: #### 5 [id number], 7929059995, 2553972 ####[facility] (DEFAULT)[address] [place] [address] UA Squam Epi Many [facility] Comment on above: Order Comment: Urina lysis Microscopic order added on by [employer] system. Performed By: #### 5 2256545, 2231394854, 9506030 ####[facility] (DEFAULT)[address] [place] [address] UA WBC 3-5 [facility] Comment on above: Order Comment: Urina lysis Microscopic order added on by [employer] system. Performed By: #### 5 9868556, 8891352257, 9570155 ####[facility] (DEFAULT)[address] [place] [address] UA w Culture if Ind Standard on 03-15-2024 Breakpoint UA [facility] Comment on above: Performed By: #### 5 6574543, 3663638623, 4827308 ####[facility] (DEFAULT)[address] [place] [address] Color (U) Yellow [facility] Comment on above: Performed By: #### 5 4759893, 4021548419, 7749997 ####[facility] (DEFAULT)[address] [place] [address] Culture? Indicated Invalid Interpretation Code [facility] Comment on above: Result Comment: Resu lt created by rule GL_MAGR_ADD_UA_CULT Result created by rule GL_MAGR_ADD_UA_CULT Result created by rule GL_MAGR_ADD_UA_CULT1 Result created by rule GL_MAGR_ADD_UA_CULT Performed By: #### 5 [id number], 7659888605, 7973522 ####[facility] (DEFAULT)[address] [place] [address] 10533 Glucose (U) [Mass/Vol] Negative Normal [facility] Comment on above: Performed By: #### 5 [id number], 6602953701, 7862736 ####[facility] (DEFAULT)[address] [place] [address] 39443 Ketones Ql (U) Negative Normal [facility] Comment on above: Performed By: #### 5 4335384, 3066249385, 8520433 ####[facility] (DEFAULT)[address] [place] [address] 48292 Micro? Indicated Invalid Interpretation Code [facility] Comment on above: Result Comment: Resu lt created by rule GL_MAGR_ADD_UA_MICRO Performed By: #### 5 8290186, 6754641479, 7696219 ####[facility] (DEFAULT)[address] [place] [address] 23830 UA Bilirubin Negative Normal [facility] Comment on above: Performed By: #### 5 5669021, 7190678647, 8146273 ####[facility] (DEFAULT)[address] [place] [address] 65959 UA Blood TRACE Abnormal NEGATIVE [facility] Comment on above: Performed By: #### 5 2480255, 6544244440, 8949208 ####[facility] (DEFAULT)[address] [place] [address] 29582 UA Clarity SL CLOUDY Abnormal CLEAR [facility] Comment on above: Performed By: #### 5 1470273, 4317020814, 8077196 ####[facility] (DEFAULT)[address] [place] [address] 79511 UA Leuk Est LARGE Abnormal NEGATIVE [facility] Comment on above: Performed By: #### 5 4113790, 5289393378, 8926756 ####[facility] (DEFAULT)[address] [place] [address] 98978 UA Nitrite Negative Normal NEGATIVE [facility] Comment on above: Performed By: #### 5 [id number], 8647729342, 5265708 ####[facility] (DEFAULT)[address] [place] [address] 79983 UA pH 6.0 Normal 5-8 [facility] Comment on above: Performed By: #### 5 8443141, 4055827070, 4205234 ####[facility] (DEFAULT)[address] [place] [address] 66564 UA Protein Negative Normal NEGATIVE [facility] Comment on above: Performed By: #### 5 1403871, 1514576510, 7601396 ####[facility] (DEFAULT)[address] [place] [address] 96008 UA Spec Grav 1.015 Normal 1.001-1.035 [facility] Comment on above: Performed By: #### 5 7901051, 4984539584, 6972976 ####[facility] (DEFAULT)[address] [place] [address] 60288 UA Urobilinogen 0.2 mg/dL Normal 0.2-1.0 [facility] Comment on above: Performed By: #### 5 [id number], [id number], 2640013 ####[facility] (DEFAULT)[address] [place] [address] 13245 Urine Source Clean Catch Normal [facility] Comment on above: Performed By: #### 5 1006505, 3156974625, 1794090 ####[facility] (DEFAULT)[address] [place] [address] 51365 XR Chest 1 View Frontalon XR Chest [...] MD 03/15/24 7:34 pm Technologist: Lizzy BRICEÑO [facility] Calcium [Mass/volume] in Ser um or PlasmaOrdered By: Dedrick Fuller on 08-15-2023 Calcium [Mass/Vol] 9.1 mg/dL 8.6-10.3 [facility] Carbon dioxide, total [Moles /volume] in Serum or PlasmaOrdered By: Dedrick Fuller on 08-15-2023 CO2 [Moles/Vol] 26.7 mmol/L 21.0-31.0 [facility] Chloride [Moles/volume] in S altagracia or PlasmaOrdered By: Dedrick Fuller on 08-15-2023 Chloride [Moles/Vol] 107 mmol/L 98-[address] [facility] Cholesterol [Mass/volume] in Serum or PlasmaOrdered By: Dedrick Fuller on 08-15-2023 Cholesterol [Mass/Vol] 166 mg/dL 140-200 [facility] Comment on above: Chol less than 200 m g/dl low riskChol 201-239 mg/dl borderline riskChol 240 mg/dl and greater high risk Cholesterol in LDL Calc [Mas s/Vol]Ordered By: Dedrick Fuller on 08-15-2023 Cholesterol in LDL [Mass/Vol] 95 mg/dL 0-100 [facility] Comment on above: LDL ATP III CLASSIFI CATIONLDL less than 100 mg/dL OptimalLDL 100-129 mg/dL Near or above optimalLDL 130-159 mg/dL Borderline highLDL 160-189 mg/dL HighLDL greater than 189 mg/dL Very high Cholesterol in VLDL Calc [Ma ss/Vol]Ordered By: Dedrick Fuller on 08-15-2023 Cholesterol in VLDL [Mass/Vol] 32 mg/dL [facility] Creatinine [Mass/volume] in Serum or PlasmaOrdered By: Dedrick Fuller on 08-15-2023 Creatinine [Mass/Vol] 0.77 mg/dL 0.60-1.20 [facility] Glucose [Mass/volume] in Ser um or PlasmaOrdered By: Dedrick Fuller on 08-15-2023 Glucose [Mass/Vol] 97 mg/dL 70-100 [facility] Comment on above: ADA recommended refe rence rangeRandom Glucose Reference Range is dependent on time and content of last meal. Glucose of more than 200 mg/dL in a nonstressed, ambulatory subject supports the diagnosis of Diabetes Mellitus. No Panel InformationOrdered By: Dedrick Fuller on 08-15-2023 Estimated GFR (CKD-EPI) > 60.0 mL/Min [facility] Creatinine Clearance (Chem N/A [facility] Potassium [Moles/volume] in Serum or PlasmaOrdered By: Dedrick Fuller on 08-15-2023 Potassium [Moles/Vol] 4.0 mmol/L 3.5-5.1 [facility] Serum or plasma anion gap de terminationOrdered By: Dedrick Fuller on 08-15-2023 Anion gap [Moles/Vol] 10.3 mmol/L 6.0-15.0 [facility] Serum or plasma high density lipoprotein (HDL) cholesterol measurementOrdered By: Dedrick Fuller on 08-15-2023 Cholesterol in HDL [Mass/Vol] 39 mg/dL 23-92 [facility] Comment on above: HDL CHOL ATP-III CLA SSIFICATION Cardiovascular RiskHDL > or equal to 60 mg/dL LOWHDL < 40 mg/dL HIGH Serum or plasma total choles terol/high density lipoprotein (HDL) cholesterol mass ratOrdered By: Dedrick Fuller on 08-15-2023 Cholesterol.total/Mirta sterol in HDL [Mass ratio] 4.3 {ratio} <5.0 [facility] Sodium [Moles/volume] in Ser um or PlasmaOrdered By: Dedrick Fuller on 08-15-2023 Sodium [Moles/Vol] 140 mmol/L 136-145 [facility] Triglyceride [Mass/volume] i n Serum or PlasmaOrdered By: Dedrick Fuller on 08-15-2023 Triglyceride [Mass/Vol] 162 mg/dL 0-149 [facility] Comment on above: TRIG ATP III CLASSIF ICATIONTRIG less than 150 mg/dL NormalTRIG 150-199 mg/dL Borderline highTRIG 200-500 mg/dL High TRIG greater than 500 mg/dL Very highStandard traceable to the Center for Disease Conrtrol and Prevention (CDC) test method. Urea nitrogen [Mass/volume] in Serum or PlasmaOrdered By: Dedrick Fuller on 08-15-2023 Urea nitrogen [Mass/Vol] 10 mg/dL 725 [facility] GTT 2 HRon 11-09-2022 Glucose [Mass/Vol] 107 mg/dL Critically high 74-106 [facility] Comment on above: Performed By: #### U LG, CRP #### [facility] [address] [address] [address] Soo Donnelly Glucose [Mass/Vol] 152 mg/dL Normal [facility] Comment on above: Performed By: #### U LG, CRP #### [facility] [address] [address] [address] Soo Donnelly Glucose [Mass/Vol] 121 mg/dL Normal [facility] Comment on above: Performed By: #### U LG, CRP #### [facility] [address] ABD/PELV W CONon [...] ELENA SAUCEDA Date: 2022-10-01 10:31 Normal [facility] CBC AUTO DIFFon 09-18-2022 BASO # 0.0 103/ul Normal 0.0-0.1 [facility] Comment on above: Performed By: #### A NAD #### [facility] [address] [place] [address] Dr. Soo Donnelly Basophils/100 WBC (Bld) 0.4 % Normal 0.2-2.0 [facility] Comment on above: Performed By: #### A NAD #### [facility] [address] [address] [address] Soo Donnelly EO # 0.1 103/ul Normal 0.0-0.7 [facility] Comment on above: Performed By: #### A NAD #### [facility] [address] [address] [address] Soo Donnelly Eosinophils/100 WBC (Bld) 1.8 % Normal 0.9-7.0 [facility] Comment on above: Performed By: #### A NAD #### [facility] [address] [address] [address] Soo Donnelly Erythrocyte distribution width (RBC) [Ratio] 11.9 % Normal 11.0-15.0 [facility] Comment on above: Performed By: #### A NAD #### [facility] [address] [place] [address] Dr. Soo Donnelly Hematocrit (Bld) [Volume fraction] 43.9 % Normal 36.0-48.0 [facility] Comment on above: Performed By: #### A NAD #### [facility] [address] [place] [address] Dr. Soo Donnelly Hemoglobin (Bld) [Mass/Vol] 14.6 g/dL Normal 12.0-16.0 [facility] Comment on above: Performed By: #### A NAD #### [facility] [address] [place] [address] Dr. Soo Donnelly IG # 0.01 10e3/ul Normal 0.00-0.03 [facility] Comment on above: Performed By: #### A NAD #### [facility] [address] [place] [address] Dr. Soo Donnelly IG % 0.1 % Normal 0.0-0.5 [facility] Comment on above: Performed By: #### A NAD #### [facility] [address] [place] [address] Dr. Soo Donnelly LYMPH # 2.7 103/ul Normal 1.2-3.8 [facility] Comment on above: Performed By: #### A NAD #### [facility] [address] [place] [address] Dr. Soo Donnelly Lymphocytes/100 WBC (Bld) 39.9 % Normal 20.5-60.0 [facility] Comment on above: Performed By: #### A NAD #### [facility] [address] [place] [address] Dr. Soo Donnelly MANUAL DIFF REQ NO Normal [facility] Comment on above: Performed By: #### A NAD #### [facility] [address] [place] [address] Dr. Soo Donnelly MCH (RBC) [Entitic mass] 31.7 pg Normal 26.7-34.0 [facility] Comment on above: Performed By: #### A NAD #### [facility] [address] [place] [address] Dr. Soo Donnelly MCHC (RBC) [Mass/Vol] 33.3 g/dL Normal 29.9-35.2 [facility] Comment on above: Performed By: #### A NAD #### [facility] [address] [address] [address] Soo Donnelly MCV (RBC) [Entitic vol] 95.4 fL Normal 81.0-99.0 [facility] Comment on above: Performed By: #### A NAD #### [facility] [address] [address] [address] Soo Donnelly MONO # 0.4 103/ul Normal 0.3-0.8 [facility] Comment on above: Performed By: #### A NAD #### [facility] [address] [place] [address] Dr. Soo Donnelly Monocytes/100 WBC (Bld) 5.9 % Normal 1.7-12.0 [facility] Comment on above: Performed By: #### A NAD #### [facility] [address] [place] [address] Dr. Soo Donnelly NEUT # 3.5 103/ul Normal 1.4-6.5 [facility] Comment on above: Performed By: #### A NAD #### [facility] [address] [place] [address] Dr. Soo Donnelly Neutrophils/100 WBC (Bld) 51.9 % Normal 43.0-75.0 [facility] Comment on above: Performed By: #### A NAD #### [facility] [address] [place] [address] Dr. Soo Donnelly Platelet mean volume (Bld) [Entitic vol] 10.8 fL Normal 9.5-13.5 [facility] Comment on above: Performed By: #### A NAD #### [facility] [address] [place] [address] Dr. Soo Donnelly PLT 220 103/ul Normal 150-450 [facility] Comment on above: Performed By: #### A NAD #### [facility] [address] [place] [address] Dr. Soo Donnelly RBC 4.60 106/ul Normal 4.20-5.40 [facility] Comment on above: Performed By: #### A NAD #### [facility] [address] [place] [address] Dr. Soo Donnelly WBC 6.8 103/ul Normal 4.0-11.0 [facility] Comment on above: Performed By: #### A NAD #### [facility] [address] [address] [address] Soo CORLEY URINE PROFILEon 2 Bilirubin Ql (U) Negative Normal NEGATIVE [facility] Comment on above: Performed By: #### U LG, CRP #### [facility] [address] [address] [address] Soo Donnelly Clarity (U) CLEAR Normal CLEAR [facility] Comment on above: Performed By: #### U LG, CRP #### [facility] [address] [place] [address] Dr. Soo Donnelly Color (U) LT. YELLOW Normal YELLOW [facility] Comment on above: Performed By: #### U LG, CRP #### [facility] [address] [place] [address] Dr. Soo CORTEZ A micrscopic examination will be performed if indicated. Normal [facility] Comment on above: Performed By: #### U LG, CRP #### [facility] [address] [place] [address] Dr. Soo Donnelly Glucose Ql (U) Negative Normal NEGATIVE [facility] Comment on above: Performed By: #### U LG, CRP #### [facility] [address] [address] [address] Soo Donnelly Hemoglobin Ql (U) Negative Normal NEGATIVE [facility] Comment on above: Performed By: #### U LG, CRP #### [facility] [address] [address] [address] Soo Donnelly Ketones Ql (U) Negative Normal NEGATIVE [facility] Comment on above: Performed By: #### U LG, CRP #### [facility] [address] [place] [address] Dr. Soo Donnelly LEUKOCYTES Negative Normal NEGATIVE [facility] Comment on above: Performed By: #### U LG, CRP #### [facility] [address] [place] [address] Dr. Soo Donnelly Nitrite Ql (U) Negative Normal NEGATIVE [facility] Comment on above: Performed By: #### U LG, CRP #### [facility] [address] [place] [address] Dr. Soo Donnelly pH (U) 6.0 [pH] Normal 5-9 [facility] Comment on above: Performed By: #### U LG, CRP #### [facility] [address] [place] [address] Dr. Soo Donnelly SPEC GRAVITY 1.015 Normal 1.005-<=1.0 25 [facility] Comment on above: Performed By: #### U LG, CRP #### [facility] [address] [place] [address] Dr. Soo Donnelly UA PROTEIN Negative Normal NEGATIVE/ TRACE [facility] Comment on above: Performed By: #### U LG, CRP #### [facility] [address] [place] [address] Dr. Soo Donnelly UR MICRO IND NOT INDICATED Normal [facility] Comment on above: Performed By: #### U LG, CRP #### [facility] [address] [place] [address] Dr. Soo Donnelly Urobilinogen Qn (U) 0.2 {Roma'U}/dL Normal 0.2 - 1. 0 [facility] Comment on above: Performed By: #### U LG, CRP #### [facility] [address] [place] [address] Dr. Soo Donnelly PROF CHEM 8 (BAS METB)on Anion gap [Moles/Vol] 10.2 mmol/L Normal [facility] Comment on above: Performed By: #### B MP #### [facility] [address] [place] [address] Dr. Soo Donnelly Calcium [Mass/Vol] 8.7 mg/dL Normal 8.5-10.1 [facility] Comment on above: Performed By: #### B MP #### [facility] [address] [place] [address] Dr. Soo Donnelly Chloride [Moles/Vol] 103 mmol/L Normal 98-107 [facility] Comment on above: Performed By: #### B MP #### [facility] [address] [address] [address] Soo Donnelly CO2 [Moles/Vol] 27.9 mmol/L Normal 21.0-32.0 [facility] Comment on above: Performed By: #### B MP #### [facility] [address] [address] [address] Soo Donnelly Creatinine [Mass/Vol] 0.80 mg/dL Normal 0.55-1.02 [facility] Comment on above: Performed By: #### B MP #### [facility] [address] [place] [address] Dr. Soo Donnelly EGFR-AF [place] >60 Normal >=60 [facility] Comment on above: Performed By: #### B MP #### [facility] [address] [place] [address] Dr. Soo Donnelly EGFR-NON AF [place] >60 Normal >=60 [facility] Comment on above: Performed By: #### B MP #### [facility] [address] [address] [address] Soo Donnelly Glucose [Mass/Vol] 103 mg/dL Normal 74-106 [facility] Comment on above: Performed By: #### B MP #### [facility] [address] [place] [address] Dr. Soo Donnelly Potassium [Moles/Vol] 4.1 mmol/L Normal 3.5-5.1 [facility] Comment on above: Performed By: #### B MP #### [facility] [address] [place] [address] Dr. Soo Donnelly Sodium [Moles/Vol] 137 mmol/L Normal 136-145 [facility] Comment on above: Performed By: #### B MP #### [facility] [address] [address] [address] Soo Donnelly Urea nitrogen [Mass/Vol] 11.0 mg/dL Normal 7.0-18.0 [facility] Comment on above: Performed By: #### B MP #### [facility] [address] [place], [place] [address] Dr. Soo Donnelly Urea nitrogen/Creatinine [Mass ratio] 13.8 mg/mg Normal [facility] Comment on above: Performed By: #### B MP #### [facility] [address] [place], [place] [address] Dr. Soo Donnelly XR KUB 1 VIEWon [...] ELENA SAUCEDA Date: 2022-09-18 12:12 Normal [facility] MAMM SCREEN 3D DEAN CADon 09-12-2022 MG MAMM SCREEN 3D DEAN CAD Patient: HORACIO KEATING Exam Date: 09/12/2022 : 1975 Gender:F Ordering : DR DELGADO MURILLO . Admission #: [id number] Family : Order #: [id number] CLICK HERE TO VIEW EXAM RADIOLOGY REPORT [...] ovarian cancer at age 77. LOCATION: [facility] BREAST COMPOSITION: Scattered areas fibroglandular [...] MD on 09/13/2022 at 07:44 Approved by: Abgiail Gonsalves MD on 09/13/2022 at 07:46 Normal [facility] INSULINon 07-20-2022 Insulin 25.5 uIU/mL Critically high 2.6-24.9 [facility] Comment on above: Performed By: #### U LG, CRP #### [facility] [address] [place] [address] Dr. Soo Donnelly T4 LABCORPon 07-20-2022 T4 [Mass/Vol] 7.4 ug/dL Normal 4.5-12.0 [facility] Comment on above: Performed By: #### A NAD #### [facility] [address] [place] [address] Dr. Soo Donnelly CBC W MANUAL DIFFon 07-19-20 22 ATYPICAL LYMPH # Normal [facility] Comment on above: Performed By: #### B UN, CREA #### [facility] [address] [place] [address] Dr. Soo Donnelly ATYPICAL LYMPH % Normal [facility] Comment on above: Performed By: #### B UN, CREA #### [facility] [address] [place] [address] Dr. Soo Donnelly BAND # Normal 0.0-0.3 [facility] Comment on above: Performed By: #### B UN, CREA #### [facility] [address] [place] [address] Dr. Soo Donnelly BAND % Normal 0-5 [facility] Comment on above: Performed By: #### B UN, CREA #### [facility] [address] [place] [address] Dr. Soo Donnelly BASOM # 0.00 103/ul Normal 0.00-0.10 [facility] Comment on above: Performed By: #### B UN, CREA #### [facility] [address] [place] [address] Dr. Soo Donnelly BASOM % 0.0 % Critically low 0.2-2.0 [facility] Comment on above: Performed By: #### B UN, CREA #### [facility] [address] [place] [address] Dr. Soo Donnelly BLAST # Normal [facility] Comment on above: Performed By: #### B UN, CREA #### [facility] [address] [place] [address] Dr. Soo Donnelly BLAST % Normal [facility] Comment on above: Performed By: #### B UN, CREA #### [facility] [address] [place] [address] Dr. Soo Donnelly CORRECTED WBC Normal 4.0-11.0 [facility] Comment on above: Performed By: #### B UN, CREA #### [facility] [address] [place] [address] Dr. Soo Donnelly EOS # 0.31 103/ul Normal 0.00-0.70 [facility] Comment on above: Performed By: #### B UN, CREA #### [facility] [address] [place] [address] Dr. Soo Donnelly EOS% 2.0 % Normal 0.9-7.0 [facility] Comment on above: Performed By: #### B UN, CREA #### [facility] [address] [place] [address] Dr. Soo Donnelly HCT 41.6 % Normal 36.0-48.0 [facility] Comment on above: Performed By: #### B UN, CREA #### [facility] [address] [place] [address] Dr. Soo Donnelly HGB 13.8 g/dl Normal 12.0-16.0 [facility] Comment on above: Performed By: #### B UN, CREA #### [facility] [address] [place] [address] Dr. Soo Donnelly LYMPHM # 5.27 103/ul Critically high 1.20-3.80 [facility] Comment on above: Performed By: #### B UN, CREA #### [facility] [address] [place] [address] Dr. Soo Donnelly LYMPHM% 34.0 % Normal 20.5-60.0 [facility] Comment on above: Performed By: #### B UN, CREA #### [facility] [address] [place] [address] Dr. Soo Donnelly MCH 31.5 pg Normal 26.7-34.0 [facility] Comment on above: Performed By: #### B UN, CREA #### [facility] [address] [place] [address] Dr. Soo Donnelly MCHC 33.2 g/dl Normal 29.9-35.2 [facility] Comment on above: Performed By: #### B UN, CREA #### [facility] [address] [place] [address] Dr. Soo Donnelly MCV 95.0 fL Normal 81.0-99.0 [facility] Comment on above: Performed By: #### B UN, CREA #### [facility] [address] [place] [address] Dr. Soo Donnelly METAMYELOCYTE # Normal [facility] Comment on above: Performed By: #### B UN, CREA #### [facility] [address] [place] [address] Dr. Soo Donnelly METAMYELOCYTE % Normal [facility] Comment on above: Performed By: #### B UN, CREA #### [facility] [address] [place] [address] Dr. Soo Donnelly MONOM# 0.93 103/ul Critically high 0.30-0.80 [facility] Comment on above: Performed By: #### B UN, CREA #### [facility] [address] [place] [address] Dr. Soo Donnelly MONOM% 6.0 % Normal 1.7-12.0 [facility] Comment on above: Performed By: #### B UN, CREA #### [facility] [address] [place] [address] Dr. Soo Donnelly MPV 10.1 fL Normal 9.5-13.5 [facility] Comment on above: Performed By: #### B UN, CREA #### [facility] [address] [place] [address] Dr. Soo Donnelly MYELOCYTE # Normal [facility] Comment on above: Performed By: #### B UN, CREA #### [facility] [address] [place] [address] Dr. Soo Donnelly MYELOCYTE % Normal [facility] Comment on above: Performed By: #### B UN, CREA #### [facility] [address] [place] [address] Dr. Soo Donnelly NRBC Normal [facility] Comment on above: Performed By: #### B UN, CREA #### [facility] [address] [place] [address] Dr. Soo Donnelly PLT 260 103/ul Normal 150-450 [facility] Comment on above: Performed By: #### B UN, CREA #### [facility] [address] [place] [address] Dr. Soo Donnelly RBC 4.38 106/ul Normal 4.20-5.40 [facility] Comment on above: Performed By: #### B UN, CREA #### [facility] [address] [place] [address] Dr. Soo Donnelly RDW 12.5 % Normal 11.0-15.0 [facility] Comment on above: Performed By: #### B UN, CREA #### [facility] [address] [place] [address] Dr. Soo Donnelly SEG # 8.99 103/ul Critically high 1.40-6.50 [facility] Comment on above: Performed By: #### B UN, CREA #### [facility] [address] [place] [address] Dr. Soo Donnelly SEG % 58.0 % Normal 43.0-75.0 [facility] Comment on above: Performed By: #### B UN, CREA #### [facility] [address] [place] [address] Dr. Soo Donnelly WBC 15.5 103/ul Critically high 4.0-11.0 [facility] Comment on above: Performed By: #### B UN, CREA #### [facility] [address] [address] [address] Soo Donnelly FREE T3on 07-19-2022 FREE T3 2.62 pg/mlL Normal 2.18-3.98 [facility] Comment on above: Performed By: #### U LG, CRP #### [facility] [address] [address] [address] Soo Donnelly GLYCOHEMOGLOBIN A1Con 2021 ADA RECOMMENDATION SEE BELOW Normal [facility] Comment on above: Result Comment: ADA RECOMMENDED LIMIT 4.0 - 6.0 ADA THERAPEUTIC TARGET < 7.0 ACTION SUGGESTED > 7.0 Performed By: #### U LG, CRP #### [facility] [address] [place] [address] Dr. Soo Donnelly Glucose [Mass/Vol] 137 mg/dL Normal [facility] Comment on above: Performed By: #### U LG, CRP #### [facility] [address] [place] [address] Dr. Soo Donnelly HbA1c (Bld) [Mass fraction] 6.4 % Critically high 4.5-6.2 [facility] Comment on above: Performed By: #### U LG, CRP #### [facility] [address] [place] [address] Dr. Soo Donnelly LIPID PROFILEon 07-19-2022 CHOL-HDL RATIO NORM SEE BELOW Normal [facility] Comment on above: Result Comment: 3.3 - 4.4 LOW RISK 4.4 - 7.1 AVERAGE RISK 7.1 - 11.0 MODERATE RISK >11.0 HIGH RISK Performed By: #### U LG, CRP #### [facility] [address] [place] [address] Dr. Soo Donnelly Cholesterol [Mass/Vol] 226 mg/dL Critically high <=200 [facility] Comment on above: Performed By: #### U LG, CRP #### [facility] [address] [place] [address] Dr. Soo Donnelly Cholesterol in HDL [Mass/Vol] 33 mg/dL Critically low 40-60 [facility] Comment on above: Performed By: #### U LG, CRP #### [facility] [address] [address] [address] Soo Donnelly Cholesterol in LDL [Mass/Vol] 135.2 mg/dL Normal [facility] Comment on above: Performed By: #### U LG, CRP #### [facility] [address] [address] [address] Soo Donnelly Cholesterol.total/Mirta sterol in HDL [Mass ratio] 6.8 {ratio} Normal [facility] Comment on above: Performed By: #### U LG, CRP #### [facility] [address] [address] [address] Soo Donnelly HDL NORMAL > or = 60 mg/dl - LO W CARDIOVASCULAR RISK <40 mg/dl - HIGH CARDIOVASCULAR RISK Normal [facility] Comment on above: Performed By: #### U LG, CRP #### [facility] [address] [address] [address] Soo Donnelly LDL CALC NORMAL SEE BELOW Normal [facility] Comment on above: Result Comment: <100 mg/dl OPTIMAL 100 - 129 mg/dl NEAR OR ABOVE OPTIMAL 130 - 159 mg/dl BORDERLINE HIGH 160 - 189 mg/dl HIGH >190 mg/dl VERY HIGH Performed By: #### U LG, CRP #### [facility] [address] [address] [address] Soo Donnelly Triglyceride [Mass/Vol] 289 mg/dL Critically high <=150 [facility] Comment on above: Performed By: #### U LG, CRP #### [facility] [address] [address] [address] Soo Donnelly VLDL CALC 57.8 mg/dL Normal [facility] Comment on above: Performed By: #### U LG, CRP #### [facility] [address] [address] [address] Soo Donnelly PROF 14(COMP METB)on 022 Albumin [Mass/Vol] 3.2 g/dL Critically low 3.4-5.0 [facility] Comment on above: Performed By: #### U LG, CRP #### [facility] [address] [address] [address] Soo Donnelly Albumin/Globulin [Mass ratio] 1.1 {ratio} Normal [facility] Comment on above: Performed By: #### U LG, CRP #### [facility] [address] [address] [address] Soo Donnelly ALP [Catalytic activity/Vol] 41 U/L Critically low 46-116 [facility] Comment on above: Performed By: #### U LG, CRP #### [facility] [address] [address] [address] Soo Donnelly ALT [Catalytic activity/Vol] 46 U/L Normal 14-59 [facility] Comment on above: Performed By: #### U LG, CRP #### [facility] [address] [address] [address] Soo Donnelly Anion gap [Moles/Vol] 9.3 mmol/L Normal [facility] Comment on above: Performed By: #### U LG, CRP #### [facility] [address] [address] [address] Soo Donnelly AST [Catalytic activity/Vol] 18 U/L Normal 15-37 [facility] Comment on above: Performed By: #### U LG, CRP #### [facility] [address] [address] [address] Soo Donnelly Bilirubin [Mass/Vol] 0.7 mg/dL Normal 0.2-1.0 [facility] Comment on above: Performed By: #### U LG, CRP #### [facility] [address] [address] [address] Soo Donnelly Calcium [Mass/Vol] 8.1 mg/dL Critically low 8.5-10.1 [facility] Comment on above: Performed By: #### U LG, CRP #### [facility] [address] [address] [address] Soo Donnelly Chloride [Moles/Vol] 101 mmol/L Normal 98-107 [facility] Comment on above: Performed By: #### U LG, CRP #### [facility] [address] [address] [address] Soo Donnelly CO2 [Moles/Vol] 31.1 mmol/L Normal 21.0-32.0 [facility] Comment on above: Performed By: #### U LG, CRP #### [facility] [address] [address] [address] Soo Donnelly Creatinine [Mass/Vol] 0.77 mg/dL Normal 0.55-1.02 [facility] Comment on above: Performed By: #### U LG, CRP #### [facility] [address] [address] [address] Soo Donnelly EGFR-AF [place] >60 Normal >=60 [facility] Comment on above: Performed By: #### U LG, CRP #### [facility] [address] [address] [address] Soo Donnelly EGFR-NON AF [place] >60 Normal >=60 [facility] Comment on above: Performed By: #### U LG, CRP #### [facility] [address] [address] [address] Soo Donnelly Globulin (S) [Mass/Vol] 3.0 g/dL Normal [facility] Comment on above: Performed By: #### U LG, CRP #### [facility] [address] [address] [address] Soo Donnelly Glucose [Mass/Vol] 104 mg/dL Normal 74-106 [facility] Comment on above: Performed By: #### U LG, CRP #### [facility] [address] [address] [address] Soo Donnelly Potassium [Moles/Vol] 3.4 mmol/L Critically low 3.5-5.1 [facility] Comment on above: Performed By: #### U LG, CRP #### [facility] [address] [address] [address] Soo Donnelly Protein [Mass/Vol] 6.2 g/dL Critically low 6.4-8.2 [facility] Comment on above: Performed By: #### U LG, CRP #### [facility] [address] [address] [address] Soo Donnelly Sodium [Moles/Vol] 138 mmol/L Normal 136-145 [facility] Comment on above: Performed By: #### U LG, CRP #### [facility] [address] [place] [address] Dr. Soo Donnelly Urea nitrogen [Mass/Vol] 16.0 mg/dL Normal 7.0-18.0 [facility] Comment on above: Performed By: #### U LG, CRP #### [facility] [address] [place] [address] Dr. Soo Donnelly Urea nitrogen/Creatinine [Mass ratio] 20.8 mg/mg Normal [facility] Comment on above: Performed By: #### U LG, CRP #### [facility] [address] [place] [address] Dr. Soo Donnelly TSHon 07-19-2022 TSH 3.262 uIU/mL Normal 0.358-3.740 [facility] Comment on above: Performed By: #### U LG, CRP #### [facility] [address] [place] [address] Dr. Soo Donnelly CBC AUTO DIFFon 05-18-2022 BASO # 0.0 103/ul Normal 0.0-0.1 [facility] Comment on above: Performed By: #### U LG, CRP #### [facility] [address] [place] [address] Dr. Soo Donnelly Basophils/100 WBC (Bld) 0.2 % Normal 0.2-2.0 [facility] Comment on above: Performed By: #### U LG, CRP #### [facility] [address] [place] [address] Dr. Soo Donnelly EO # 0.0 103/ul Normal 0.0-0.7 [facility] Comment on above: Performed By: #### U LG, CRP #### [facility] [address] [place] [address] Dr. Soo Donnelly Eosinophils/100 WBC (Bld) 0.2 % Critically low 0.9-7.0 [facility] Comment on above: Performed By: #### U LG, CRP #### [facility] [address] [place] [address] Dr. Soo Donnelly Erythrocyte distribution width (RBC) [Ratio] 12.8 % Normal 11.0-15.0 [facility] Comment on above: Performed By: #### U LG, CRP #### [facility] [address] [place] [address] Dr. Soo Donnelly Hematocrit (Bld) [Volume fraction] 35.7 % Critically low 36.0-48.0 [facility] Comment on above: Performed By: #### U LG, CRP #### [facility] [address] [place] [address] Dr. Soo Donnelly Hemoglobin (Bld) [Mass/Vol] 11.5 g/dL Critically low 12.0-16.0 [facility] Comment on above: Performed By: #### U LG, CRP #### [facility] [address] [place] [address] Dr. Soo Donnelly IG # 0.07 10e3/ul Critically high 0.00-0.[address] [facility] Comment on above: Performed By: #### U LG, CRP #### [facility] [address] [place] [address] Dr. Soo Donnelly IG % 0.5 % Normal 0.0-0.5 [facility] Comment on above: Performed By: #### U LG, CRP #### [facility] [address] [place] [address] Dr. Soo Donnelly LYMPH # 4.1 103/ul Critically high 1.2-3.8 [facility] Comment on above: Performed By: #### U LG, CRP #### [facility] [address] [place] [address] Dr. Soo Donnelly Lymphocytes/100 WBC (Bld) 28.3 % Normal 20.5-60.0 [facility] Comment on above: Performed By: #### U LG, CRP #### [facility] [address] [place] [address] Dr. Soo Donnelly MANUAL DIFF REQ NO Normal [facility] Comment on above: Performed By: #### U LG, CRP #### [facility] [address] [place] [address] Dr. Soo Donnelly MCH (RBC) [Entitic mass] 31.7 pg Normal 26.7-34.0 [facility] Comment on above: Performed By: #### U LG, CRP #### [facility] [address] [place] [address] Dr. Soo Donnelly MCHC (RBC) [Mass/Vol] 32.2 g/dL Normal 29.9-35.2 [facility] Comment on above: Performed By: #### U LG, CRP #### [facility] [address] [place] [address] Dr. Soo Donnelly MCV (RBC) [Entitic vol] 98.3 fL Normal 81.0-99.0 [facility] Comment on above: Performed By: #### U LG, CRP #### [facility] [address] [place] [address] Dr. Soo Donnelly MONO # 0.8 103/ul Normal 0.3-0.8 [facility] Comment on above: Performed By: #### U LG, CRP #### [facility] [address] [place] [address] Dr. Soo Donnelly Monocytes/100 WBC (Bld) 5.6 % Normal 1.7-12.0 [facility] Comment on above: Performed By: #### U LG, CRP #### [facility] [address] [place] [address] Dr. Soo Donnelly NEUT # 9.4 103/ul Critically high 1.4-6.5 [facility] Comment on above: Performed By: #### U LG, CRP #### [facility] [address] [place] [address] Dr. Soo Donnelly Neutrophils/100 WBC (Bld) 65.2 % Normal 43.0-75.0 [facility] Comment on above: Performed By: #### U LG, CRP #### [facility] [address] [address] [address] Soo Donnelly Platelet mean volume (Bld) [Entitic vol] 10.8 fL Normal 9.5-13.5 [facility] Comment on above: Performed By: #### U LG, CRP #### [facility] [address] [address] [address] Soo Donnelly PLT 191 103/ul Normal 150-450 [facility] Comment on above: Performed By: #### U LG, CRP #### [facility] [address] [place] [address] Dr. Soo Donnelly RBC 3.63 106/ul Critically low 4.20-5.40 [facility] Comment on above: Performed By: #### U LG, CRP #### [facility] [address] [place] [address] Dr. Soo Donnelly WBC 14.4 103/ul Critically high 4.0-11.0 [facility] Comment on above: Performed By: #### U LG, CRP #### [facility] [address] [place] [address] Dr. Soo Donnelly BUNon 05-17-2022 Urea nitrogen [Mass/Vol] 8.0 mg/dL Normal 7.0-18.0 [facility] Comment on above: Performed By: #### B UN, CREA #### [facility] [address] [place] [address] Dr. Soo Donnelly CBC AUTO DIFFon 05-17-2022 BASO # 0.0 103/ul Normal 0.0-0.1 [facility] Comment on above: Performed By: #### U LG, CRP #### [facility] [address] [place] [address] Dr. Soo Donnelly Basophils/100 WBC (Bld) 0.1 % Critically low 0.2-2.0 [facility] Comment on above: Performed By: #### U LG, CRP #### [facility] [address] [place] [address] Dr. Soo Donnelly EO # 0.0 103/ul Normal 0.0-0.7 [facility] Comment on above: Performed By: #### U LG, CRP #### [facility] [address] [address] [address] Soo Donnelly Eosinophils/100 WBC (Bld) 0.0 % Critically low 0.9-7.0 [facility] Comment on above: Performed By: #### U LG, CRP #### [facility] [address] [place] [address] Dr. Soo Donnelly Erythrocyte distribution width (RBC) [Ratio] 12.5 % Normal 11.0-15.0 [facility] Comment on above: Performed By: #### U LG, CRP #### [facility] [address] [place] [address] Dr. Soo Donnelly Hematocrit (Bld) [Volume fraction] 38.5 % Normal 36.0-48.0 [facility] Comment on above: Performed By: #### U LG, CRP #### [facility] [address] [place] [address] Dr. Soo Donnelly Hemoglobin (Bld) [Mass/Vol] 13.0 g/dL Normal 12.0-16.0 [facility] Comment on above: Performed By: #### U LG, CRP #### [facility] [address] [place] [address] Dr. Soo Donnelly IG # 0.16 10e3/ul Critically high 0.00-0.[address] [facility] Comment on above: Performed By: #### U LG, CRP #### [facility] [address] [place] [address] Dr. Soo Donnelly IG % 0.7 % Critically high 0.0-0.5 [facility] Comment on above: Performed By: #### U LG, CRP #### [facility] [address] [place] [address] Dr. Soo Donnelly LYMPH # 3.0 103/ul Normal 1.2-3.8 [facility] Comment on above: Performed By: #### U LG, CRP #### [facility] [address] [place] [address] Dr. Soo Donnelly Lymphocytes/100 WBC (Bld) 12.2 % Critically low 20.5-60.0 [facility] Comment on above: Performed By: #### U LG, CRP #### [facility] [address] [place] [address] Dr. Soo Donnelly MANUAL DIFF REQ NO Normal [facility] Comment on above: Performed By: #### U LG, CRP #### [facility] [address] [place] [address] Dr. Soo Donnelly MCH (RBC) [Entitic mass] 32.4 pg Normal 26.7-34.0 [facility] Comment on above: Performed By: #### U LG, CRP #### [facility] [address] [place] [address] Dr. Soo Donnelly MCHC (RBC) [Mass/Vol] 33.8 g/dL Normal 29.9-35.2 [facility] Comment on above: Performed By: #### U LG, CRP #### [facility] [address] [place] [address] Dr. Soo Donnelly MCV (RBC) [Entitic vol] 96.0 fL Normal 81.0-99.0 [facility] Comment on above: Performed By: #### U LG, CRP #### [facility] [address] [place] [address] Dr. Soo Donnelly MONO # 1.3 103/ul Critically high 0.3-0.8 [facility] Comment on above: Performed By: #### U LG, CRP #### [facility] [address] [place] [address] Dr. Soo Donnelly Monocytes/100 WBC (Bld) 5.4 % Normal 1.7-12.0 [facility] Comment on above: Performed By: #### U LG, CRP #### [facility] [address] [place] [address] Dr. Soo Donnelly NEUT # 19.8 103/ul Critically high 1.4-6.5 [facility] Comment on above: Performed By: #### U LG, CRP #### [facility] [address] [place] [address] Dr. Soo Donnelly Neutrophils/100 WBC (Bld) 81.6 % Critically high 43.0-75.0 [facility] Comment on above: Performed By: #### U LG, CRP #### [facility] [address] [address] [address] Soo Donnelly Platelet mean volume (Bld) [Entitic vol] 10.5 fL Normal 9.5-13.5 [facility] Comment on above: Performed By: #### U LG, CRP #### [facility] [address] [address] [address] Soo Donnelly PLT 253 103/ul Normal 150-450 [facility] Comment on above: Performed By: #### U LG, CRP #### [facility] [address] [address] [address] Soo Donnelly RBC 4.01 106/ul Critically low 4.20-5.40 [facility] Comment on above: Performed By: #### U LG, CRP #### [facility] [address] [address] [address] Soo Donnelly WBC 24.3 103/ul Critically high 4.0-11.0 [facility] Comment on above: Performed By: #### U LG, CRP #### [facility] [address] [address] [address] Soo Donnelly BASO # 0.0 103/ul Normal 0.0-0.1 [facility] Comment on above: Performed By: #### U LG, CRP #### [facility] [address] [address] [address] Soo Donnelly Basophils/100 WBC (Bld) 0.1 % Critically low 0.2-2.0 [facility] Comment on above: Performed By: #### U LG, CRP #### [facility] [address] [place] [address] Dr. Soo Donnelly EO # 0.0 103/ul Normal 0.0-0.7 [facility] Comment on above: Performed By: #### U LG, CRP #### [facility] [address] [place] [address] Dr. Soo Donnelly Eosinophils/100 WBC (Bld) 0.0 % Critically low 0.9-7.0 [facility] Comment on above: Performed By: #### U LG, CRP #### [facility] [address] [place] [address] Dr. Soo Donnelly Erythrocyte distribution width (RBC) [Ratio] 12.3 % Normal 11.0-15.0 [facility] Comment on above: Performed By: #### U LG, CRP #### [facility] [address] [place] [address] Dr. Soo Donnelly Hematocrit (Bld) [Volume fraction] 41.2 % Normal 36.0-48.0 [facility] Comment on above: Performed By: #### U LG, CRP #### [facility] [address] [place] [address] Dr. Soo Donnelly Hemoglobin (Bld) [Mass/Vol] 13.5 g/dL Normal 12.0-16.0 [facility] Comment on above: Performed By: #### U LG, CRP #### [facility] [address] [place] [address] Dr. Soo Donnelly IG # 0.11 10e3/ul Critically high 0.00-0.[address] [facility] Comment on above: Performed By: #### U LG, CRP #### [facility] [address] [place] [address] Dr. Soo Donnelly IG % 0.5 % Normal 0.0-0.5 [facility] Comment on above: Performed By: #### U LG, CRP #### [facility] [address] [place] [address] Dr. Soo Donnelly LYMPH # 1.6 103/ul Normal 1.2-3.8 [facility] Comment on above: Performed By: #### U LG, CRP #### [facility] [address] [place] [address] Dr. Soo Donnelly Lymphocytes/100 WBC (Bld) 7.8 % Critically low 20.5-60.0 [facility] Comment on above: Performed By: #### U LG, CRP #### [facility] [address] [address] [address] Soo Donnelly MANUAL DIFF REQ NO Normal [facility] Comment on above: Performed By: #### U LG, CRP #### [facility] [address] [address] [address] Soo Donnelly MCH (RBC) [Entitic mass] 31.8 pg Normal 26.7-34.0 [facility] Comment on above: Performed By: #### U LG, CRP #### [facility] [address] [place] [address] Dr. Soo Donnelly MCHC (RBC) [Mass/Vol] 32.8 g/dL Normal 29.9-35.2 [facility] Comment on above: Performed By: #### U LG, CRP #### [facility] [address] [place] [address] Dr. Soo Donnelly MCV (RBC) [Entitic vol] 96.9 fL Normal 81.0-99.0 [facility] Comment on above: Performed By: #### U LG, CRP #### [facility] [address] [place] [address] Dr. Soo Donnelly MONO # 0.4 103/ul Normal 0.3-0.8 [facility] Comment on above: Performed By: #### U LG, CRP #### [facility] [address] [place] [address] Dr. Soo Donnelly Monocytes/100 WBC (Bld) 2.0 % Normal 1.7-12.0 [facility] Comment on above: Performed By: #### U LG, CRP #### [facility] [address] [place] [address] Dr. Soo Donnelly NEUT # 18.1 103/ul Critically high 1.4-6.5 [facility] Comment on above: Performed By: #### U LG, CRP #### [facility] [address] [place] [address] Dr. Soo Donnelly Neutrophils/100 WBC (Bld) 89.6 % Critically high 43.0-75.0 [facility] Comment on above: Performed By: #### U LG, CRP #### [facility] [address] [address] [address] Soo Donnelly Platelet mean volume (Bld) [Entitic vol] 11.0 fL Normal 9.5-13.5 [facility] Comment on above: Performed By: #### U LG, CRP #### [facility] [address] [address] [address] Soo Donnelly PLT 223 103/ul Normal 150-450 [facility] Comment on above: Performed By: #### U LG, CRP #### [facility] [address] [address] [address] Soo Donnelly RBC 4.25 106/ul Normal 4.20-5.40 [facility] Comment on above: Performed By: #### U LG, CRP #### [facility] [address] [address] [address] Soo Donnelly WBC 20.2 103/ul Critically high 4.0-11.0 [facility] Comment on above: Performed By: #### U LG, CRP #### [facility] [address] [address] [address] Soo Donnelly CREATININEon 05-17-2022 Creatinine [Mass/Vol] 0.97 mg/dL Normal 0.55-1.02 [facility] Comment on above: Performed By: #### B UN, CREA #### [facility] [address] [place] [address] Dr. Soo Donnelly EGFR-AF [place] >60 Normal >=60 [facility] Comment on above: Performed By: #### B UN, CREA #### [facility] [address] [address] [address] Soo Donnelly EGFR-NON AF [place] >60 Normal >=60 [facility] Comment on above: Performed By: #### B UN, CREA #### [facility] [address] [place] [address] Dr. Soo Donnelly CTA CHEST WO W [...] LUZ ELENA SAUCEDA Date: 2022-05-17 16:40 Normal [facility] XR CHEST 2 Von 05-17-2022 [...] by: SAMI JONES Date: 2022-05-17 16:10 Normal [facility] CBC AUTO DIFFon 05-16-2022 BASO # 0.1 103/ul Normal 0.0-0.1 [facility] Comment on above: Performed By: #### B KYMBERLY MARSHALL #### [facility] [address] [address] [address] Soo Donnelly Basophils/100 WBC (Bld) 0.5 % Normal 0.2-2.0 [facility] Comment on above: Performed By: #### B HALLEY MARSHALLA #### [facility] [address] [place] [address] Dr. Soo Donnelly EO # 0.1 103/ul Normal 0.0-0.7 [facility] Comment on above: Performed By: #### B UN, CREA #### [facility] [address] [place] [address] Dr. Soo Donnelly Eosinophils/100 WBC (Bld) 1.0 % Normal 0.9-7.0 [facility] Comment on above: Performed By: #### B UN, CREA #### [facility] [address] [place] [address] Dr. Soo Donnelly Erythrocyte distribution width (RBC) [Ratio] 12.2 % Normal 11.0-15.0 [facility] Comment on above: Performed By: #### B UN, CREA #### [facility] [address] [place] [address] Dr. Soo Donnelly Hematocrit (Bld) [Volume fraction] 41.2 % Normal 36.0-48.0 [facility] Comment on above: Performed By: #### B UN, CREA #### [facility] [address] [place] [address] Dr. Soo Donnelly Hemoglobin (Bld) [Mass/Vol] 13.9 g/dL Normal 12.0-16.0 [facility] Comment on above: Performed By: #### B UN, CREA #### [facility] [address] [place] [address] Dr. Soo Donnelly IG # 0.04 10e3/ul Critically high 0.00-0.[address] [facility] Comment on above: Performed By: #### B UN, CREA #### [facility] [address] [place] [address] Dr. Soo Donnelly IG % 0.4 % Normal 0.0-0.5 [facility] Comment on above: Performed By: #### B UN, CREA #### [facility] [address] [place] [address] Dr. Soo Donnelly LYMPH # 3.5 103/ul Normal 1.2-3.8 [facility] Comment on above: Performed By: #### B UN, CREA #### [facility] [address] [place] [address] Dr. Soo Donnelly Lymphocytes/100 WBC (Bld) 35.3 % Normal 20.5-60.0 [facility] Comment on above: Performed By: #### B UN, CREA #### [facility] [address] [place] [address] Dr. Soo Donnelly MANUAL DIFF REQ NO Normal [facility] Comment on above: Performed By: #### B UN, CREA #### [facility] [address] [place] [address] Dr. Soo Donnelly MCH (RBC) [Entitic mass] 31.7 pg Normal 26.7-34.0 [facility] Comment on above: Performed By: #### B UN, CREA #### [facility] [address] [place] [address] Dr. Soo Donnelly MCHC (RBC) [Mass/Vol] 33.7 g/dL Normal 29.9-35.2 [facility] Comment on above: Performed By: #### B UN, CREA #### [facility] [address] [place] [address] Dr. Soo Donnelly MCV (RBC) [Entitic vol] 94.1 fL Normal 81.0-99.0 [facility] Comment on above: Performed By: #### B UN, CREA #### [facility] [address] [place] [address] Dr. Soo Donnelly MONO # 0.5 103/ul Normal 0.3-0.8 [facility] Comment on above: Performed By: #### B UN, CREA #### [facility] [address] [place] [address] Dr. Soo Donnelly Monocytes/100 WBC (Bld) 5.4 % Normal 1.7-12.0 [facility] Comment on above: Performed By: #### B UN, CREA #### [facility] [address] [place] [address] Dr. Soo Donnelly NEUT # 5.6 103/ul Normal 1.4-6.5 [facility] Comment on above: Performed By: #### B UN, CREA #### [facility] [address] [place] [address] Dr. Soo Donnelly Neutrophils/100 WBC (Bld) 57.4 % Normal 43.0-75.0 [facility] Comment on above: Performed By: #### B UN, CREA #### [facility] [address] [place] [address] Dr. Soo Donnelly Platelet mean volume (Bld) [Entitic vol] 10.3 fL Normal 9.5-13.5 [facility] Comment on above: Performed By: #### B UN, CREA #### [facility] [address] [place] [address] Dr. Soo Donnelly PLT 235 103/ul Normal 150-450 [facility] Comment on above: Performed By: #### B UN, CREA #### [facility] [address] [place] [address] Dr. Soo Donnelly RBC 4.38 106/ul Normal 4.20-5.40 [facility] Comment on above: Performed By: #### B UN, CREA #### [facility] [address] [place] [address] Dr. oSo Donnelly WBC 9.8 103/ul Normal 4.0-11.0 [facility] Comment on above: Performed By: #### B UN, CREA #### [facility] [address] [place] [address] Dr. Soo Donnelly PREG QUANT HCGon 05-16-2022 HCG QUANT <1 Normal [facility] Comment on above: Performed By: #### U LG, CRP #### [facility] [address] [place] [address] Dr. Soo Donnelly HCG RANGE SEE BELOW Normal [facility] Comment on above: Result Comment: 5-50 0-1 WEEK 40-300 1-2 WEEKS 100-1,000 2-3 WEEKS 500-6,000 3-4 WEEKS 5,000-200,000 1-2 MONTHS 10,000-100,000 2-3 MONTHS 3,000-50,000 2ND TRIMESTER 1,000-50,000 3RD TRIMESTER Performed By: #### U LG, CRP #### [facility] [address] [place] [address] Dr. Soo Donnelly Covid-19 PCR ([facility])on 05-01 SARS-CoV-2 (COVID-19) RNA NOLA+probe Ql (Unsp spec) Not detected Normal NOT DETECTED [facility] Comment on above: Result Comment: This test is not yet approved or cleared by the [place] FDA. When there are no FDA-approved or cleared tests available, and other criteria are met, FDA can make tests available under an emergency access mechanism called an Emergency Use Authorization (EUA). The EUA for this test is supported by the Associate Research Scientist of Health and Human Service's (HHS's) declaration [...] SARS-CoV-2. Performed By: #### C [id number] #### [facility] [id number] Soo Donnelly TYPE AND SCREENon 05-13-2022 TYPE AND SCREEN Negative Normal [facility] Comment on above: Performed By: #### B UN, CREA #### [facility] [address] [place], [place] [address] Dr. Soo Donnelly PAP ACOG PANEL 2: 30 to 65on 05-07-2022 . . Normal [facility] Comment on above: Result Comment: Perf ormed at: WB Performed By: #### [id number] #### [facility] [address] [place] [address] Dr. Soo Donnelly Age Gdln ACOG Testing 30-65 Normal [facility] Comment on above: Performed By: #### [id number] #### [facility] [address] [address] [address] Soo Donnelly DIAGNOSIS: Comment Normal [facility] Comment on above: Result Comment: NEGA TIVE FOR INTRAEPITHELIAL LESION OR MALIGNANCY. Performed at: WB Performed By: #### [id number] #### [facility] [address] [address] [address] Soo Donnelly HPV Aptima Negative Normal Negative [facility] Comment on above: Result Comment: This nucleic acid amplification test detects fourteen high-risk HPV types (16,18,31,33,35,39,45,51,52,56,58,59,66,68) without differentiation. Performed at: =G Performed By: #### [id number] #### [facility] [address] [place] [address] Dr. Soo Donnelly Methodology: Comment Normal [facility] Comment on above: Result Comment: This liquid based ThinPrep(R) pap test was screened with the use of an image guided system. Performed at: WB Performed By: [id number] #### [facility] [address] [place] [address] Dr. Soo Donnelly Note: Comment Normal [facility] Comment on above: Result Comment: The Pap smear is a screening test designed to aid in the detection of premalignant and malignant conditions of the uterine cervix. It is not a diagnostic procedure and should not be used as the sole means of detecting cervical cancer. Both false-positive and false-negative reports do occur. . Performed at: WB Performed By: [id number] #### [facility] [address] [address] [address] Soo Donnelly Performed by: Comment Normal [facility] Comment on above: Result Comment: Angel Rod, Business Analytics Director (ASCP) Performed at: WB Performed By: #### [id number] #### [facility] [address] [address] [address] Soo Donnelly Specimen adequacy: Comment Normal [facility] Comment on above: Result Comment: Sati sfactory for evaluation. Endocervical and/or squamous metaplastic cells (endocervical component) are present. Performed at: WB Performed By: #### [id number] #### [facility] [address] [place] [address] Dr. Soo Donnelly ROSS by IFAon 02-21-2022 Antinuclear Antibodies, IFA Negative Normal [facility] Comment on above: Result Comment: Nega tive <1:80 Borderline 1:80 Positive >1:80 ICAP nomenclature: AC-0 For more information about Hep-2 cell patterns use ANApatterns.org, the official website for the International Consensus on Antinuclear Antibody (ROSS) Patterns (ICAP). Performed By: #### U LG, CRP #### [facility] [address] [place] [address] Dr. Soo Donnelly ROSS DIRECTon 02-20-2022 ROSS Direct Negative Normal Negative [facility] Comment on above: Performed By: #### A NAD #### [facility] [address] [place] [address] Dr. Soo Donnelly ANTISTREPTOLYSIN O AB (ASO)o n 02-20-2022 Antistreptolysin O Ab 115.3 IU/mL Normal 0.0-200.0 [facility] Comment on above: Performed By: #### B UN, CREA #### [facility] [address] [place] [address] Dr. Soo Donnelly C3 and C4 COMPLEMENTon 02-20 Complement C3, Serum 137 mg/dL Normal 82-167 [facility] Comment on above: Performed By: #### U LG, CRP #### [facility] [address] [place] [address] Dr. Soo Donnelly Complement C4, Serum 23 mg/dL Normal 12-38 [facility] Comment on above: Performed By: #### U LG, CRP #### [facility] [address] [place] [address] Dr. Soo Donnelly SLE PROFILE Aon 02-20-2022 Anti-DNA (DS) Ab Qn <1 Normal 0-9 [facility] Comment on above: Result Comment: Nega tive <5 Equivocal 5 - 9 Positive >9 Performed By: #### S YARI #### [facility] [address] [address] [address] Soo Donnelly Antichromatin Antibodies <0.2 Normal 0.0-0.9 [facility] Comment on above: Performed By: #### S YARI #### [facility] [address] [address] [address] Soo Donnelly RA Latex Turbid. <10.0 Normal <14.0 [facility] Comment on above: Performed By: #### S YARI #### [facility] [address] [address] [address] Soo Donnelly PSYCHOMETRIST Antibodies <0.2 Normal 0.0-0.9 [facility] Comment on above: Performed By: #### S YARI #### [facility] [address] [address] [address] Soo Donnelly Sjogrdaniela's Anti-SS-A <0.2 Normal 0.0-0.9 [facility] Comment on above: Performed By: #### S YARI #### [facility] [address] [address] [address] Soo Donnelly Sjogrdaniela's Anti-SS-B <0.2 Normal 0.0-0.9 [facility] Comment on above: Performed By: #### S YARI #### [facility] [address] [address] [address] Soo Donnelly Spann Antibodies <0.2 Normal 0.0-0.9 [facility] Comment on above: Performed By: #### S YARI #### [facility] [address] [address] [address] Soo Donnelly CRPon 02-19-2022 CRP [Mass/Vol] mg/L Normal <=1.0 [facility] Comment on above: Performed By: #### U LG, CRP #### [facility] [address] [address] [address] Soo Donnelly URIC ACID SERUMon 02-19-2022 Urate [Mass/Vol] 4.7 mg/dL Normal 2.5-6.2 [facility] Comment on above: Performed By: #### U LG, CRP #### [facility] [address] [address] [address] Soo Donnelly XR CSPINE MIN 4 [...] ABIGAIL GONSALVES Date: 2022-02-19 16:33 Normal [facility] XR HAND DEAN MIN 3Von [...] ABIGAIL GONSALVES Date: 2022-02-19 16:28 Normal [facility] ASYMPTOMATIC COVID-19 ANTIGE Non 12-04-2021 EUA Statement SEE BELOW Normal [facility] Comment on above: Result [...] sooner. Performed By: #### C VDAGA #### [facility] [address] [place] [address] Dr. Soo Donnelly SARS-CoV-2 (COVID-19) RNA NOLA+probe Ql (Unsp spec) Negative Normal NEGATIVE [facility] Comment on above: Result Comment: Nega tive results are presumptive. They do not preclude infection and should not be used as the sole basis for treatment decisions. Additional confirmatory testing by a molecular method should be considered. Performed By: #### C VDAGA #### [facility] [address] [place] [address] Dr. Soo Donnelly Covid-19 PCR (CVDTB)on SARS-CoV-2 (COVID-19) RNA NOLA+probe Ql (Unsp spec) Not detected Normal NOT DETECTED [facility] Comment on above: Result Comment: This test is not yet approved or cleared by the [place] FDA. When there are no FDA-approved or cleared tests available, and other criteria are met, FDA can make tests available under an emergency access mechanism called an Emergency Use Authorization (EUA). The EUA for this test is supported by the Associate Research Scientist of Health and Human Service's (HHS's) declaration [...] Performed By: #### U LG, CRP #### [facility] [address] [place] [address] Dr. Soo Donnelly Vital Signs Date Time Vital Sign Value Performing Clinician Facility 11-22-2024 13:21-0500 Body mass index (BMI) [Ratio] 28.66 kg/m2 Delgado Lidia DO Work Phone: [facility] 11-22-2024 13:21-0500 Body weight 83.01 kg Delgado Lidia DO Work Phone: [facility] 11-22-2024 13:21-0500 Diastolic blood pressure 80 mm[Hg] Delgado Lidia DO Work Phone: [facility] 11-22-2024 13:21-0500 Systolic blood pressure 128 mm[Hg] Delgado Lidia DO Work Phone: [facility] 11-01-2024 14:30-0500 Blood Pressure Location [facility] 11-01-2024 14:30-0500 Diastolic blood pressure 74 mm[Hg] MohQuintiqd [facility] 11-01-2024 14:30-0500 Heart rate 93 /min MohQuintiqd [employer] 11-01-2024 14:30-0500 Respiratory rate 16 /min Vinayak Baltazar [facility] 11-01-2024 14:30-0500 Systolic blood pressure 112 mm[Hg] Mohklausd Joshuali [facility] 10-20-2024 11:08-0500 Body height 167.6 cm Pmh 1 [facility] 10-20-2024 11:08-0500 Body mass index (BMI) [Ratio] 28.41 kg/m2 Pmh 1 [facility] 10-20-2024 11:08-0500 Body weight 79.83 kg Pmh 1 [facility] 10-13-2024 14:20-0500 Body height 170.2 cm Becca Schwarz DYE WINCH OPERATOR-HEAD LIBRARIAN Work Phone: [facility] 10-13-2024 14:20-0500 Body mass index (BMI) [Ratio] 28.51 kg/m2 Becca Schwarz DYE WINCH OPERATOR-HEAD LIBRARIAN Work Phone: [facility] 10-13-2024 14:20-0500 Body weight 82.56 kg Becca Schwarz DYE WINCH OPERATOR-HEAD LIBRARIAN Work Phone: [facility] 11-01-2022 15:19-0500 Blood Pressure Location Nicola NILL [facility] 11-01-2022 15:19-0500 Diastolic blood pressure 80 mm[Hg] Nicola NILL [facility] 11-01-2022 15:19-0500 Heart rate 72 /min Nicola NILL [facility] 11-01-2022 15:19-0500 Respiratory rate 16 /min Nicola NILL [facility] 11-01-2022 15:19-0500 Systolic blood pressure 118 mm[Hg] Nicola NILL [facility] 10-01-2022 16:30-0400 Body height 170.18 cm Clarice Scally Other [employer] Other 10-01-2022 16:30-0400 Body mass index (BMI) [Ratio] 32.84 kg/m2 Clarice Scally Other [employer] Other 10-01-2022 16:30-0400 Body weight 95.12 kg Clarice Scally Other [employer] Other 10-01-2022 16:30-0400 Diastolic blood pressure 82 mm[Hg] Clarice Scally Other [employer] Other 10-01-2022 16:30-0400 Respiratory rate 18 /min Clarice Aldoly Other [employer] Other 10-01-2022 16:30-0400 SaO2% (BldA) [Mass fraction] 97 % Claricesissy Carlsonly Other [employer] Other 10-01-2022 16:30-0400 Systolic blood pressure 116 mm[Hg] Clarice Aldoly Other [employer] Other 08-28-2022 14:30-0400 Body height 170.18 cm Nahid Elisediff Other [employer] Other 08-28-2022 14:30-0400 Body mass index (BMI) [Ratio] 34.55 kg/m2 Nahid Elisediff Other [employer] Other 08-28-2022 14:30-0400 Body weight 100.06 kg Nahid Elisediff Other [employer] Other 08-28-2022 14:30-0400 Diastolic blood pressure 82 mm[Hg] Nahid Mccoy Other [employer] Other 08-28-2022 14:30-0400 Respiratory rate 18 /min Nahid Darius Other [employer] Other 08-28-2022 14:30-0400 SaO2% (BldA) [Mass fraction] 97 % Nahid Elisediff Other [employer] Other 08-28-2022 14:30-0400 Systolic blood pressure 121 mm[Hg] Nahid Mccoy Other [employer] Other Encounters Encounter Date Encounter Type Care [...] Start: 11-01-2024 End: 11-01-2024 ambulatory Vinayak Baltazar Facility:[facility] Start: 11-01-2024 End: 11-01-2024 Patient encounter procedure Vinayak Baltazar [facility] Start: 10-27-2024 End: 10-27-2024 Evaluation and management of inpatient [facility] Start: 10-20-2024 End: 10-20-2024 ambulatory [facility] Pat Phone Call Provider 1 [facility] - Pre Admit Start: 10-20-2024 End: 10-20-2024 ambulatory SAMI MCCARTY [facility] Start: 10-18-2024 End: 10-18-2024 ambulatory Hebert Jara MD Facility:[facility] Start: 10-14-2024 ambulatory Vinayak Baltazar Facilit y:[facility] Start: 10-13-2024 End: 10-13-2024 Office outpatient new 30 minutes Becca Ravi RealSchwarz DYE WINCH OPERATOR-HEAD LIBRARIAN Work Phone: [facility] Comment on above: Positive fecal occul t blood test (Primary Dx); Rectal bleeding; Gastroesophageal reflux disease, unspecified whether esophagitis present Start: 10-13-2024 End: 10-13-2024 ambulatory [facility] Start: 10-04-2024 End: 10-04-2024 ambulatory Hebert Jara MD Facility: [facility] Start: 09-27-2024 End: 09-27-2024 Office outpatient visit 15 minutes Delgado Lidia DO Work Phone: [facility] Comment on above: Encounter to [...] PT Start: 08-30-2024 End: 08-30-2024 Departed Referred [facility] [address] Work Phone: Start: 08-30-2024 End: 08-30-2024 ambulatory NON STAFF [facility] Work Phone: Start: 04-05-2024 End: 04-05-2024 ambulatory DLEGADO MURILLO Not Available Start: 03-15-2024 End: 03-15-2024 Emergency department patient visit Nicola [place] Facility:[facility] Start: 08-15-2023 End: 08-15-2023 ambulatory NON STAFF [facility] Work Phone: Start: 08-15-2023 End: 08-15-2023 Departed Referred [facility] [address] Work Phone: Start: 12-05-[address] SAMI MCCARTY Facility :[facility] Start: 11-09-2022 End: 11-10-[address] DOCTOR STEIN Facility:[facility] Start: 11-01-2022 End: 11-01-2022 Patient encounter procedure Nicola BUCHANAN [facility] [place] Start: 10-29-2022 End: 10-29-2022 ambulatory Clarice Hull Other [employer] Other Start: 10-29-2022 Telephone encounter Clarice harkins [facility] Start: 10-14-2022 End: 10-14-2022 ambulatory Clarice Hull Other [employer] Other Start: 10-14-2022 Telephone encounter Clarice Rocha [facility] Start: 10-01-2022 (FCCCWMNF/U) Weight Management f/u Clarice Hull [facility] Start: 10-01-2022 End: 10-02-[address] LUZ ELENA SAUCEDA [facility] [employer] Other Start: 09-19-2022 End: 09-19-2022 ambulatory Nahid Mccoy Other [employer] Other Start: 09-19-2022 Telephone encounter Nahid Rocha [facility] Start: 09-18-2022 End: 09-18-[address] LUZ ELENA SAUCEDA Facility:[facility] Start: 09-12-2022 End: 09-13-[address] ABIGAIL GONSALVES Facility:[facility] Start: 08-28-2022 End: 08-28-2022 ambulatory Nahid Mccoy Other [employer] Other Start: 08-28-2022 Nutrition therapy Nahid Mccoy [facility] Start: 07-22-2022 Encounter for genera l adult medical examination without abnormal findings DR SAMI MCCARTY [facility] Start: 07-19-2022 End: 07-20-2022 ambulatory [...] for preprocedural laboratory examination DR DELGADO MURILLO [facility] Start: 05-13-2022 End: 05-14-[address] DELGADO MURILLO Facility:[facility] Start: 05-13-2022 End: 05-14-2022 Encounter for preprocedural laboratory examination DR DELGADO MURILLO Facility:[facility] Start: 05-11-2022 Encounter for preprocedural cardiovascular examination DR DELGADO MURILLO [facility] Start: 05-08-2022 End: 05-09-2022 ambulatory [...] 10-27-2034 Screening for malignant neoplasm of colon [facility] Start: 05-28-2031 Screening for malignant neoplasm of colon [facility] Start: 10-23-2028 Screening for malignant neoplasm of cervix [facility] Start: 10-23-2026 Screening for malignant neoplasm of cervix Pap Smear [facility] Start: 05-28-2026 Screening for malignant neoplasm of colon Colonoscopy [facility] Start: 10-13-2025 Adult BMI Screening Adult BMI Screening [facility] Start: 10-13-2025 Tobacco Screening Tobacco Screening [facility] Start: 11-27-2024 Screening for malignant neoplasm of breast Mammogram [facility] Start: 11-22-2024 End: 01-23-2026 MG Breast - bilateral Screening Bilateral screening mammogram Imaging Routine Breast cancer screening by mammogram Expected: 11/22/2024 (Approximate), Expires: 01/23/2026 [facility] Work Phone: Comment on above: Expected: 11/22/2024 (Approximate), Expi res: 01/23/2026 Start: 11-22-2024 End: 11-22-2024 Patient encounter procedure [facility] Comment on above: Arrived Start: 10-27-2024 End: 10-27-2024 Admission to same day surgery center [facility] Comment on above: ESOPHAGOGASTRODUODENOSCOPY DIAGNOSTIC [4 3235 (CPT )] Start: 10-27-2024 End: 10-27-2024 Colonoscopy flx dx w/collj spec when pfrmd [facility] Start: 10-27-2024 End: 10-27-2024 Esophagogastroduodenoscopy transoral diagnostic [facility] Start: 10-27-2024 Subsequent hospital visit by physician [facility] Start: 10-26-2024 End: 10-26-2024 Patient encounter procedure 10/26/2024 1:45 PM EST Office Visit [facility] [address] [place] [id number] Becca Schwarz, DYE WINCH OPERATOR-HEAD LIBRARIAN [address] [place] [address] [facility] Start: 10-20-2024 End: 10-20-2024 ambulatory 10/20/2024 4:20 PM EST Support Visit [facility] - Pre Admit [address] [place] [address] [facility] Pre [facility] Start: 09-27-2024 End: 09-27-2024 Patient encounter procedure 09/27/2024 3:10 PM EDT Office Visit [facility] [address] [place] [address] Delgado Murillo DO [address] [place] [address] Arrived [facility] Comment on above: Arrived Start: 09-09-2024 End: 09-09-2024 ambulatory 09/09/2024 4:00 PM EDT Evaluation [facility] [address] [place] [id number] Carol Webb, PT [address] [place] [address] Arrived [facility] Comment on above: Arrived Start: 08-01-2024 COVID-19 Vaccine ( season) COVID-19 Vaccine ( season) [facility] Start: 08-01-2024 Influenza vaccination [facility] Start: 1995 DTaP,Tdap and Td Vaccines (1 - Tdap) DTaP,Tdap and Td Vaccines (1 - Tdap) [facility] Start: 1994 Adult BMI Follow Up Plan Adult BMI Follow Up Plan [facility] Start: 1988 Depression Screening Depression Screening [facility] Start: 1976 Screening for malignant neoplasm of colon [facility] Start: 1976 Tobacco Counseling Tobacco Counseling [facility] CHLAMYDIA TRACHOMATI S (GENITO/STI) CHLAMYDIA TRACHOMATIS (GENITO/STI) Lab Routine Vaginal spotting Ordered: 09/27/2024 [facility] Comment on above: Ordered: 09/27/2024 End: 10-13-2025 EGD / Colonoscopy EGD / Colonoscopy GI Routine Positive fecal occult blood test 1 Occurrences starting 10/13/2024 until 10/13/2025 [facility] Work Phone: Comment on above: 1 Occurrences starting 10/13/2024 until 10/13/2025 Neisseria gonorrhoea e DNA [Presence] in Unspecified specimen by NOLA with probe detection Neisseria gonorrhea DNA probe, direct Lab Routine Vaginal spotting Ordered: 09/27/2024 [employer] Comment on above: Ordered: 09/27/2024 SURESWAB(R) ADVANCED VAGINITIS PLUS, TMA SURESWAB(R) ADVANCED VAGINITIS PLUS, TMA Pathology and Cytology Routine Vaginal spotting Ordered: 09/27/2024 [employer]. Work Phone: Comment on above: Ordered: 09/27/2024 THIN PREP TIS PAP AND HR HPV DNA THIN PREP TIS PAP AND HR HPV DNA Pathology and Cytology Routine Well woman exam with routine gynecological exam H/O: hysterectomy Ordered: 11/22/2024 [employer]. Comment on above: Ordered: 11/22/2024 Immunizations Immunization Date Immunization Notes Care Provider Ramila [facility] 02-15-2018 SARS-CoV-2 mRNA (trxpiwozqbu-dyvr-hrig ose) vaccine Vinayak Baltazar [facility] 10-02-2004 influenza virus vaccine, unspecified formulation [facility]cca Schwarz [facility] Work Phone: [employer] [facility] NEGATED: Highlighted row has not occurred!11-01-2022 influenza virus vaccine, unspecified formulation Nicola BUCHANAN General Surgery [place] Payers Date Payer Category Payer Self-pay [id number] 2023 Private Health Insurance [employer] [id number] 2023 Unknown [id number] [id number]. [id number] 2014 [employer] [facility] [employer] [id number] 1976 Unknown [id number] 2.16840.1.579625.3.579.2. 59 1976 Unknown [id number] 2.16840.1.138274.3.579.2. 59 1976 Unknown [id number] 2.16840.1.085351.3.579.2. 59 1976 Unknown [id number] 2.16840.1.745179.3.579.2. 593 1976 Unknown [id number] 2.16840.1.343687.3.579.2. 59 1976 Unknown [id number] 2.16840.1.294203.3.579.2. 59 1976 Unknown [id number] 2.16840.1.106120.3.579.2. 59 1976 Unknown [id number] 2.16840.1.729654.3.579.2. 593 1976 Unknown [id number] 2.16840.1.631274.3.579.2. 593 1976 Unknown [id number] 2.16.840.1.069946.3.579.2. 593 1976 Unknown [id number] 2.16.840.1.806029.3.579.2. 593 1976 Unknown [id number] 2.16.840.1.750612.3.579.2. 593 1976 Unknown [id number] 2.16.840.1.960500.3.579.2. 593 1976 Unknown [id number] 2.16.840.1.620420.3.579.2. 593 1976 Unknown [id number] 2.16.840.1.876570.3.579.2. 718 1976 Unknown [id number] 2.16.840.1.978917.3.579.2. 1286 1976 Unknown [id number] 2.16.840.1.875735.3.579.2. 727 1976 Unknown [id number] 2.16.840.1.731669.3.579.2. 727 1976 Unknown [id number] 2.16.840.1.070868.3.579.2. 1286 1976 Unknown [id number] 2.16.840.1.100255.3.579.2. 1286 1976 Unknown [id number] 2.16.840.1.423460.3.579.2. 196 1976 Unknown [id number] 2.16.840.1.251714.3.579.2. 196 1976 Unknown [id number] 2.16.840.1.221385.3.579.2. 196 1976 Unknown [id number] 2.16.840.1.609658.3.579.2. 196 1976 Unknown [id number] 2.16.840.1.714525.3.579.2. 1259 1976 Unknown [id number] 2.16.840.1.562061.3.579.2. 9 1976 Unknown [id number] 2.16.840.1.054694.3.579.2. 9 1976 Unknown [id number] 2.16.840.1.900234.3.579.2. 1259 1959 Self-pay [id number] 1959 Unknown [id number] 2.16.840.1.114870.19 Unknown [id number] 2.16.840.1.910741.3.579.2. 531 Social History Date Type Detail Facility Unknown if ever smoked [employer] Other Start: 01-11-2021 End: 10-20-2023 Sex Assigned At [facility] Start: 11-01-2022 Tobacco smoking status Ex-smoker (finding) [facility] Tobacco smoking status Former sm okeless tobacco user, quit more than 30 days ago [facility] Start: 1975 Sex Assigned At Female [facility] Start: 06-25-2023 Tobacco smoking status WYIS Smokes tobacco daily [facility] History of [...] o r e-cigarette use Smokeless Tobacco Use:. [facility] Tobacco smoking status No Smokin g Status Entered [facility] Start: 10-13-2024 End: 10-20-2024 Tobacco smoking status NHIS Occasional tobacco smoker [facility] History of tobacco use [facility] Start: 10-13-2024 End: 10-20-2024 Tobacco use and exposure Smokeless tobacco non-user [facility] Start: 10-13-2024 Alcoholic beverage intake Current non-drinker of alcohol (finding) [facility] Start: 07-06-2015 Sex Female (finding) [facility] Start: 12-06-2022 Gender identity Identifies as female gender (finding) [facility] Start: 12-06-2022 Sexual orientation Homosexual (finding) [facility] Start: 10-20-2024 Alcohol Comment rare [facility] Functional Status Date Assessment Result Facility 11-01-2024 Functional Status N/A [facility] 11-01-2022 Functional Status N/A [...] 2006 laparoscopy-operative POLYPECTOMY 2005 uterine polyp removal [place] LAP,CHOLECYSTECTOMY 2003 [place] LIGATION,FALLOPIAN TUBE W/ 2006 c-sec w/tubal [place] TMJ ARTHROSCOPY/SURGERY 1996 SHOULDER ARTHROSCOPY Left REVIEW [...] nursing note reviewed. Exam conducted with a weblogic administrator present. Vitals: Estimated body mass index is [...] scheduled/obtained. Nursing will send progesterone/testosterone cream to [facility] for patient. Orders Placed This Encounter Procedures Bilateral screening mammogram Follow Up: Patient is to return in one year for annual unless needed otherwise. Documented by Franci Sutton MA on behalf of: Delgado Murillo DO documented in this encounter [facility] 10-20-2024 Nurse Note Preoperative Education Checklist- General Surgery date: 10/27/24 Surgery time: 1045a Arrival time: 845a 1. Bring a photo ID and your insurance card with you the day of surgery. You will check in at the main lobby of the [facility]- registration desk is straight ahead as soon as you walk in. Tell them you are here for surgery. 2. If you have a Living Will/Durable Power of Media Manager for Health Care that is not on [...] after you have bathed. 5. NO nail monegasque/acrylic on at least one finger. If you are having a hand, wrist or foot surgery then all nail monegasque and artificial/acrylic nails must be removed from [...] please call the Preadmission Testing office at [phone], Mon.-Fri. 7 a.m.-3 p.m. Leave a voicemail [...] Stop taking 0 days prior to procedure [facility] 10-20-2024 Miscellaneous Notes Preoperative Education Checklist- General Surgery date: 10/27/24 Surgery time: 1045a Arrival time: 845a 1. Bring a photo ID and your insurance card with you the day of surgery. You will check in at the main lobby of the [facility]- registration desk is straight ahead as soon as you walk in. Tell them you are here for surgery. 2. If you have a Living Will/Durable Power of Media Manager for Health Care that is not on [...] after you have bathed. 5. NO nail monegasque/acrylic on at least one finger. If you are having a hand, wrist or foot surgery then all nail monegasque and artificial/acrylic nails must be removed from [...] please call the Preadmission Testing office at [phone], Mon.-Fri. 7 a.m.-3 p.m. Leave a voicemail [...] prior to procedure documented in this encounter [facility] 10-13-2024 History of Presen t illness [...] 05/28/2021 Performed by Nicola Gee DO at [facility] COLONOSCOPY N/A 05/04/2018 Performed by Nicola Gee DO at [facility] CYST REMOVAL from uterus and ovaries x 5 EGD N/A 05/04/2018 Performed by Nicola Gee DO at [facility] ESOPHAGOGASTRODUODENOSCOPY N/A 05/28/2021 Performed by Nicola Gee DO at [facility] KNEE ARTHROSCOPY Left KNEE ARTHROSCOPY Right LAPAROSCOPIC [...] muscle spasms., Disp: , Rfl: peg 3350-sod sulf,czgj-ajc-feq 178.7-7.3-0.5 gram recon soln, Take 1 kit [...] patient/family/caregiver Referring and communicating with other health rn wound care Positive fecal occult blood test [R19.5] MAYRA VIEIRA [facility] General Surgery [place] This note was created with the assistance of a speech recognition program. While intending to generate a timely document that accurately reflects the content of the visit, no guarantee can be provided that every grammatical or spelling mistake has been or will be identified or corrected. Thank you for your understanding. MAYRA Vieira 10/13/24 1513 documented in this encounter [facility] 09-27-2024 History of Presen t illness [...] 2006 laparoscopy-operative POLYPECTOMY 2005 uterine polyp removal [place] LAP,CHOLECYSTECTOMY 2003 [place] LIGATION,FALLOPIAN TUBE W/ 2006 c-sec w/tubal [place] TMJ ARTHROSCOPY/SURGERY 1996 SHOULDER ARTHROSCOPY Left REVIEW [...] nursing note reviewed. Exam conducted with a weblogic administrator present. Vitals: Estimated body mass index is [...] Delgado Murillo DO documented in this encounter [facility] 09-09-2024 History of Presen t illness Narrative [...] No resulting surgeries. 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 Also notes poor balance with no diagnosed [...] sign below. Date: documented in this encounter [facility] 03-15-2024 Note Education Materials Cardiovascular Hypertension, Adult [...] Keep all follow-up visits. Medicines ? Take rkqk-jrb-juqobzh and prescription medicines only as told by [...] work harder to (more content not included)... [facility] 10-01-2022 Evaluation note Encounter Date Diagnosis Assessment Notes Oct, Abnormal weight gain (ICD-10 - R63.5) Oct, Obesity (ICD-10 - E66.9) Plan, purchase and prepare healthy foods. Use shopping list, [employer] shopping to curb impulse buying. Stock pantry [...] was counseling done by myself, Ann ANGLIN. [employer] Other 09-28-2022 Evaluation note* Encounter Date Diagnosis Assessment Notes Treatment Notes Treatment Clinical Notes Aug, Abnormal weight gain (ICD-10 - R63.5) Aug, Prediabetes (ICD-10 - R73.03) Aug, Mixed hyperlipidemia (ICD-10 - E78.2) Aug, Hypertension (ICD-10 - I10) Aug, Obstructive sleep apnea (ICD-10 - G47.33) Aug, GERD (gastroesophageal reflux disease) (ICD-10 - K21.9) Aug, Metabolic syndrome X (ICD-10 - E88.81) [employer] Other 06-16-2022 NoteDISCHARGE SUMMARY DISCHARGE DATE: 05/18/2022 [...] pain free and no longer on narcotics. [facility] Signed and Approved by: DR DELGADO MURILLO . 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 SURGEON: Delgado Murillo D.O. EDUCATION REVIEWER: SHUKRI Bailon URINE OUTPUT: Yellow and clear. [...] Approved by: DR DELGADO MURILLO . 05/23/2022 10:30:00[facility] No data available for this section General Surgery [place] Evaluation + Plan note Future Appointments Appointment Date:02/07/2025 02:15:00 PM Scheduled Provider:Vinayak Baltazar MD Location:[facility] Digestive Health Appointment Type:[facility] Follow Up Future Scheduled Tests Laboratory* Antimitochondrial Antibody, Quantitative 11/01/24 * Smooth Muscle Antibody Screen 11/01/24 * IgA, Quant. 11/01/24 * IgG, Quant. 11/01/24 * t-Transglutaminase IgA 11/01/24 * Comprehensive Metabolic Panel 11/01/24 * Comprehensive Metabolic Panel 12/02/24 * Comprehensive Metabolic Panel 01/02/25 [facility] Digestive Health Evaluation noteNo InformationNort [employer] Other Evaluation noteNo assessment information available [facility] Work Phone: Evaluation note* Diagnosis Neck pain- Primary Cervicalgia Chronic bilateral low back pain with bilateral sciatica documented in this encounter [facility]* Diagnosis Encounter to discuss test results Other specified counseling Vaginal spotting Other specified noninflammatory disorder of vagina Hot flashes due to surgical menopause Surgical menopause documented in this encounter [facility] HealthcareEvaluation note* Diagnosis Well woman exam with routine gynecological exam Routine gynecological examination H/O: hysterectomy Acquired absence of both cervix and uterus Breast cancer screening by mammogram Yeast infection documented in this encounter [facility] HealthcareEvaluation note* Diagnosis Positive fecal occult blood test- Primary Rectal bleeding Hemorrhage of rectum and anus Gastroesophageal reflux disease, unspecified whether esophagitis present documented in this encounter [facility] System[facility] general Narrative - Reported* Type Description [...] History TMJ surgery Hospitalization History see above [employer] Other History general Narrative - Reported* Type [...] [facility]abd . [facility] [employer] Other Hospital Discharge instructions No data available for this section General Surgery Michael InstructionsNot on filedocumented in this encounter [facility] SystemInstructionsNot on filedocumented in this encounter [facility] SystemProgress note No data available for this [...] Therapy Diagnoses Other spondylosis, lumbar region Procedures [place] PHYS THERAPY EVALUATION Edwige Magaña MD [facility] [place] [address] Carol Webb, PT [address] [place] [address] Referral ID Status Reason Start Date Expiration Date V isits Requested Visits Authorized [id number] Authorized 09/02/2024 03/01/2025 40 40 Reason Comments Results Reason Comments Gynecologic Exam Reason Comments POSITIVE OCCULT TEST POSITIVE OCCULT STO OL, REF BY DR. MCCARTY Patient Care team informatio n (unrecognized section and content) Team Status: Active Member Role Status Dates NON STAFF Primary Care Provider Active Team Status: Inactive Member Role Status Dates NON STAFF Primary Care Provider Active Dedrick Fuller DO [facility] Attending Provider Active Team Status: Inactive Member Role Status Dates NON STAFF Primary Care Provider Active Start: August 30, 2024 End: August 30, 2024 Dedrick Rangel [facility] DO [facility] Attending Provider Active Start: August 30, 2024 End: August 30, 2024 Fork Repairer Relationship Specialty Start Date End Date Sami Mccarty MD [address] [place] [address] PCP - General Family Medicine 06/26/23 Fork Repairer Relationship Specialty Start Date End Date Sami Mccarty MD [address] [place] [address] PCP - General Family Medicine 06/26/23 Fork Repairer Relationship Specialty Start Date End Date Sami Mccarty MD [address] [place] [address] PCP - General Family Medicine 06/26/23 Fork Repairer Relationship Specialty Start Date End Date Sami Mccarty MD [address] [place] [address] PCP - General Family Medicine 06/26/23 Fork Repairer Relationship Specialty Start Date End Date Sami Mccarty MD [address] [place] [address] PCP - General Family Medicine 06/26/23 Fork Repairer Relationship Specialty Start Date End Date Sami Mccarty MD PCP - General 05/04/18 Fork Repairer Relationship Specialty Start Date End Date Sami Mccarty MD PCP - General 05/04/18 INFORMATION SOURCE (unrecogn ized section and content) DATE CREATED AUTHOR 12/03/2022 [facility] DATE CREATED AUTHOR AUTHOR'S ORGANIZ ATION 03/21/2024 [facility] DATE CREATED AUTHOR AUTHOR'S ORGANIZ ATION 08/31/2024 [facility] DATE CREATED AUTHOR AUTHOR'S ORGANIZ ATION 10/15/2024 [facility] DATE CREATED AUTHOR AUTHOR'S ORGANIZ ATION 11/02/2024 [facility] DATE CREATED AUTHOR AUTHOR'S ORGANIZ ATION 11/12/2024 [facility] DATE CREATED AUTHOR AUTHOR'S ORGANIZ ATION 11/24/2024 [facility] DATE CREATED AUTHOR AUTHOR'S ORGANIZ ATION 11/24/2024 [facility] EPIC Goals (unrecognized section and content) [...] BE BASED ON THE PRIMARY CLINICAL RECORDS. [email or web address] [facility]. provides no warranty or guarantee of the accuracy or completeness of information in this document.
--- NOTE | 2025-01-28 07:14 | MR_ITS ---
The [address] [address] Patient Name: HORACIO KEATING MRN: [id number] date: 1975 Sex: F Assigned Patient Location: MRI Current Patient Location: MRI Accession/Order Number: [id number] Exam Date: 01/28/2025 15:57 Report Date: 01/28/2025 16:11 At the request of: SAMI MCCARTY MD Procedure: MR thoracic spine wo con MR thoracic spine wo con 01/28/2025 8:31 AM SIGNS AND SYMPTOMS: Chronic thoracic pain PROTOCOL: Multiplanar multisequence MR images of the thoracic spine were obtained without IV contrast. COMPARISON: None. FINDINGS: There is a marker posteriorly at the level of the C6 vertebral body and more inferiorly posterior to the T12 vertebral body level. The bones of the thoracic spine are in anatomic alignment. There is preservation of vertebral body heights. There is mild disc height loss with disc desiccation at T8-T9. The marrow signal is within normal limits. No epidural or paraspinous fluid collection is appreciated. The visualized paraspinous soft tissues are within normal limits. At T1-T2: There is a normal disc, central canal, and neural foramen. At T2-T3: There is a normal disc, central canal, and neural foramen. At T3-T4: There is a normal disc, central canal, and neural foramen. At T4-T5: There is a normal disc, central canal, and neural foramen. At T5-T6: There is a normal disc, central canal, and neural foramen. At T6-T7: There is a normal disc, central canal, and neural foramen. At T7-T8: There is a normal disc, central canal, and neural foramen. At T8-T9: There is a broad-based disc bulge with facet hypertrophy. There is mild spinal canal stenosis with mild left neural foraminal narrowing. At T9-T10: There is a normal disc, central canal, and neural foramen. At T10-T11: There is a normal disc, central canal, and neural foramen. At T11-T12: There is a normal disc, central canal, and neural foramen. At T12-L1: There is a normal disc, central canal, and neural foramen. MR/MR thoracic spine wo con IMPRESSION: No cord compression or cord signal abnormality. At T8-T9: There is a broad-based disc bulge with facet hypertrophy. There is mild spinal canal stenosis with mild left neural foraminal narrowing. Impression dictated by: J Carlos Cat M.D.01/28/2025 4:11 PM Dictation Location: [place] [address] Electronically authenticated by: [id number] Y Date: 01/28/2025 16:11
== END 2025-01-28 07:11 | disposition home or self-care (01) ==
LOC: MRI 07:10
PROVIDERS: PCP Family Medicine; Visit Provider Family Medicine
DX: M48.04 Spinal stenosis, thoracic region (principal); Z12.31 Encounter for screening mammogram for malignant neoplasm of breast; Z80.1 Family history of malignant neoplasm of trachea, bronchus and lung; Z80.3 Family history of malignant neoplasm of breast; Z80.41 Family history of malignant neoplasm of ovary
CPT/HCPCS: 72146; 77063; 77067

== ENCOUNTER 2025-08-13 11:36 | Outpatient (OUT) | payer OTHER, SELFPAY ==
--- OUTSIDE RECORDS SUMMARY | 2024-08-20 05:20 | XMS_ITS ---
Author Organization [facility] Address [address] [place] [address] Care Team Providers Care Ash Worker Name Role Phone Varun Marinelli Primary Care Provider Edwige Strauss [phone] REASON FOR VISIT lumbar pain NEEDS TO RESCHEDULE Encounters Encounter Location Date Provider Diagnosis [facility] [address] [place] [address] [place] [address] 08/20/2024 Edwige Magaña Plan Of Treatment No Information Progress Notes * KEISHA KEATINGY NDOB: [birth year] (50 yo F)Acc No.[id number]:08/20/2024 Patient: HORACIO GOLD Provider: Kaelyn Ward MD, PhD :1975 A ge:49 Y S ex:Female Date:08/20/2024 Address:[address] [place], [place] [address], [id number] Pcp:Varun Marinelli Subjective: * Chief Complaints: * 1 . lumbar pain NEEDS TO RESCHEDULE. * Medical History: Objective: * Vitals: Assessment: Plan: * Treatment: Forms: * Images: * Electronic signature of Anastasia Magaña MD, PHD on 08/13/2025 at 11:42 AM EDT Sign off status: Pending * Provider: Kaelyn Ward MD, PhD Date: 0 08/20/2024 Generated for Darin tang/Tay/Maria Teresa on: 0 08/13/2025 11:42 AM EDT
--- OUTSIDE RECORDS SUMMARY | 2025-02-04 05:00 | XMS_ITS ---
Author Organization [facility] Address [address] [place] [address] Care Team Providers Care Ingot Stripper Name Role Phone Varun Marinelli Primary Care Provider Edwige Strauss [phone] REASON FOR VISIT THORACIC SPINE Medications Medication SIG (Take, Route, Frequency, Duration) Notes Start Date End Date Status Ozempic Active doxepin Active indomethacin Active Zanaflex Active Adderall Active lisinopril Active Lopressor Active Xanax Active Aspirin Active Prilosec Active Encounters Encounter Location Date Provider Diagnosis [facility] Office [address] [place] [address] [place] [address] 02/04/2025 Edwige Magaña Plan Of Treatment No Information Progress Notes * KEATING, HORACIO NDOB: [birth year] (50 yo F)Acc No.[id number]:02/04/2025 Patient: KEISHA GOLDLeonardo Reilly Provider: Kaelyn Ward MD, PhD :1975 A ge:49 Y S ex:Female Date:02/04/2025 Address:[address] [place], [place] [address], [id number] Pcp:Varun Marinelli Subjective: * Chief Complaints: * [...] Anastasia on St Juliana MD, PHD on 08/13/2025 at 11:41 AM EDT Sign off status: Pending * Provider: Kaelyn Ward MD, PhD Date: 0 02/04/2025 Generated for Darin tang/Tay/Maria Teresa on: 0 08/13/2025 11:41 AM EDT
--- OUTSIDE RECORDS SUMMARY | 2025-06-01 04:44 | XMS_ITS ---
Author Organization [facility] [place] Address [address] [place] [address] Care Team Providers Care Predatory Animal Trapper Name Role Phone Finesse Marinelli Primary Care Provider [phone] REASON FOR VISIT Refills/ Questions Medications Medication SIG (Take, Route, Fr equency, Duration) Notes Start Date End Date Status Omeprazole 40 MG 1 capsule Orally twi ce a day for 90 days Active Gabapentin 100 MG 1 capsule at bedtime Orally Once a day for 30 day(s) 06/01/2025 Active Adderall 30 MG 1 tablet Orally q am for 30 days Active Encounters Encounter Location Date Provider Diagnosis [facility] [address] [place] [address] 06/01/2025 Finesse Marinelli Jaw pain R68.84 and Other specified arthritis, right hand M13.841 Assessments Encounter Date Diagnosis (ICD Code) Assessment Notes Treatment Notes Treatment Clinical Notes Section Notes 06/01/2025 Jaw pain (ICD-10 - R68.84) 06/01/2025 Other specified arthritis, right hand (ICD-10 - M13.841) Plan Of Treatment Medication Medication Name Sig Start Date Stop Date Notes Omeprazole 40 MG 1 capsule Orally twice a day for 90 days Gabapentin 100 MG 1 capsule at bedtime Orally Once a day for 30 day(s) 06/01/2025 Adderall 30 MG 1 tablet Orally q am for 30 days 06/01/2025 Progress Notes * Paige KEATING NDOB: [birth year] (50 yo F)Acc No.[id number]:06/01/2025 Patient: Paige GOLD :1975 A ge:50 Y S ex:Female Address:[address] [place] [address], [address] * Refills Start Gabapentin Capsule, 100 MG, Orally, 30, 1 capsule at bedtime, Once a day, 30 day(s) Refill Adderall Tablet, 30 MG, Orally, 30, 1 tablet, q am, 30 days, Refills=0 Refill Omeprazole Capsule Delayed Release, 40 MG, Orally, 180 Capsule, 1 capsule, twice a day, 90 days, Refills=3 * true * Date: Generated for Darin tang/Tay/Maria Teresa on: 0 08/13/2025 11:41 AM EDT
--- OUTSIDE RECORDS SUMMARY | 2025-07-04 10:09 | XMS_ITS ---
Author Organization The [facility] in [place] Address [address] [place] [address] Care Team Providers Care Physician Liaison Name Role Phone Finesse Marinelli Primary Care Provider REASON FOR VISIT refill Medications Medication SIG (Take, Route, Fr equency, Duration) Notes Start Date End Date Status Adderall 10 MG 1 tablet Orally Q afternoon 025 Active tiZANidine HCl 2 MG 1 tablet at bedtime as needed Orally Once a day for 30 days 07/04/2025 Ac tive Adderall 30 MG 1 tablet Orally q am for 30 days Active Encounters Encounter Location Date Provider Diagnosis [facility] [address] [place] [address] 07/04/2025 Finesse Samrob Other specified arthritis, right hand M13.841 and Jaw pain R68.84 Assessments Encounter Date Diagnosis (ICD Code) Assessment Notes Treatment Notes Treatment Clinical Notes Section Notes 07/04/2025 Other specified arthritis, right hand (ICD-10 - M13.841) 07/04/2025 Jaw pain (ICD-10 - R68.84) Plan Of Treatment Medication Medication Name Sig Start Date Stop Date Notes Adderall 10 MG 1 tablet Orally Q afternoon 07/04/2025 tiZANidine HCl 2 MG 1 tablet at bedtime as needed Orally Once a day for 30 days 07/04/2025 Adderall 30 MG 1 tablet Orally q am for 30 days 07/04/2025 Progress Notes * Paige KEATING NDOB: [birth year] (50 yo F)Acc No.[id number]:07/04/2025 Patient: Paige GOLD :1975 A ge:50 Y S ex:Female Address:[address] [place] [id number] * Refills Refill Adderall Tablet, 10 MG, Orally, 30, 1 tablet, Q afternoon, Refills=0 Refill Adderall Tablet, 30 MG, Orally, 30, 1 tablet, q am, 30 days, Refills=0 Start tiZANidine HCl Tablet, 2 MG, Orally, 30, 1 tablet at bedtime as needed, Once a day, 30 days, Refills=11 * true * Date: Generated for Darin tang/Tay/Christinaitting on: 0 08/13/2025 11:42 AM EDT
--- OUTSIDE RECORDS SUMMARY | 2025-08-05 11:36 | XMS_ITS ---
Author Organization The [facility] in [place] Address [address] [place] [address] Care Team Providers Care Cigarette Machines Mechanic Name Role Phone Finesse Marinelli Primary Care Provider [phone] REASON FOR VISIT refills Medications Medication SIG (Take, Route, Fr equency, Duration) Notes Start Date End Date Status ALPRAZolam 0.25 MG 1 tablet Orally once daily for 7 days As needed F41.9 08/05/2025 Active Adderall 10 MG 1 tablet Orally Q afternoon 025 Active Adderall 30 MG 1 tablet Orally q am for 30 days Active Gabapentin 100 MG 1 capsule at bedtime Orally Once a day for 30 days 02/09/2025 Active Encounters Encounter Location Date Provider Diagnosis [address] [address] 08/05/2025 Finesse Marinelli Jaw pain R68.84 ; O ther specified arthritis, right hand M13.841 and Hypertension I10 Assessments Encounter Date Diagnosis (ICD Code) Assessment Notes Treatment Notes Treatment Clinical Notes Section Notes 08/05/2025 Jaw pain (ICD-10 - R68.84) 08/05/2025 Other specified arthritis, right hand (ICD-10 - M13.841) 08/05/2025 Hypertension (ICD-10 - I10) Plan Of Treatment Medication Medication Name Sig Start Date Stop Date Notes ALPRAZolam 0.25 MG 1 tablet Orally once daily for 7 days 0 08/05/2025 Adderall 10 MG 1 tablet Orally Q afternoon 08/05/2025 Adderall 30 MG 1 tablet Orally q am for 30 days 08/05/2025 Gabapentin 100 MG 1 capsule at bedtime Orally Once a day for 30 days 02/09/2025 Progress Notes * Paige KEATING NDOB: [birth year] (50 yo F)Acc No.[id number]:08/05/2025 Patient: Paige GOLD N :1975 A ge:50 Y S ex:Female Address:[address] [place] [id number] * Refills Refill Gabapentin Capsule, 100 MG, Orally, 30 Capsule, 1 capsule at bedtime, Once a day, 30 days, Refills=11 Refill Adderall Tablet, 10 MG, Orally, 30, 1 tablet, Q afternoon, Refills=0 Refill Adderall Tablet, 30 MG, Orally, 30, 1 tablet, q am, 30 days, Refills=0 Refill ALPRAZolam Tablet, 0.25 MG, Orally, 7, 1 tablet, once daily, 7 days * true * Date: Generated for Darin tang/Tay/Christinaitting on: 0 08/13/2025 11:42 AM EDT
--- OUTSIDE RECORDS SUMMARY | 2025-08-11 12:30 | XMS_ITS ---
Author Organization The [facility] in [place] Address [address] [place] [address] Care Team Providers Care Desktop Analyst Name Role Phone Finesse Marinelli Primary Care Provider Allergies Allergen (clinical drug ingredient) Drug/Non Drug Allergy documented on EMR Reaction Allergy Type Onset Date Status nitrofurantoin, macrocrystals / nitrofurantoin, monohydrate Macrobid neck swelling Drug Allergy Active albuterol Albuterol seizure Drug Allergy Active REASON FOR VISIT wellness Medications Medication SIG (Take, Route, Frequency, Duration) Notes Start Date End Date Status Gabapentin 100 MG 1 am, 1 afternoon, 3 at hs Orally Once a day for 30 days 06/01/2025 Active Testosterone 10 MG/ACT (2%) 1 pump to skin in the morning to the thighs Transdermal QOD for 30 days 10/19/2024 Active Semaglutide 0.6 mg/0.5 mL Semaglutide 0.6 mg/0.5 mL 0.5 mL Subcutaneous Once Weekly for 30 days 08/09/2024 Active Terbinafine HCl 250 MG 1 tablet Orally O nce a day for 30 days 03/23/2025 Active Potassium Chloride ER 10 MEQ 1 tablet with food Orally Twice a day for 90 days PRN 04/08/2024 Active Omeprazole 40 MG 1 capsule Orally twi ce a day for 90 days Active Ondansetron 4 MG 1 tablet on the tong ue and allow to dissolve Orally Once a day for 30 days 09/03/2024 Active Nabumetone 750 MG as directed Orally BID Active Neurontin 100 MG 2 capsule at bedtime Orally Once a day for 30 days 01/14/2025 Active Mupirocin 2 % 1 application [employer] ally Twice a day for 5 days 03/23/2025 Active Metoprolol Tartrate 75 mg TAKE 1 TABLET TWICE A DAY WITH FOOD Active Lisinopril 10 MG 1 tablet Orally Once a day for 90 days Active metFORMIN HCl 500 MG 1 tablet with a viridiana l Orally BID for 90 days 10/13/2024 Active Gabapentin 100 MG 1 capsule at bedtime Orally Once a day for 30 days 02/09/2025 Active Lasix 20 MG 1 tablet Orally Once a day for 90 days PRN 04/08/2024 Active Cipro 500 MG 1 tablet Orally BID for 10 days 03/01/2025 Active Estradiol 0.5 MG 1 tablet Orally Once a day for 30 days 10/07/2024 Active ALPRAZolam 0.25 MG 1 tablet Orally once daily for 7 days As needed F41.9 08/05/2025 Active Baclofen 5 MG 1-2 tablet as needed Orally at HS PRN 09/02/2024 Active tiZANidine HCl 2 MG 1 tablet at bedtime as needed Orally Once a day for 30 days 07/04/2025 Active Adderall 30 MG 1 tablet Orally q am for 30 days 08/05/2025 Active Adderall XR 30 MG 1 capsule in the mor meagan Orally Once a day for 30 days 02/09/2025 Active Adderall 10 MG 1 tablet Orally Q afternoon 08/05/2025 Active Social History Tobacco Use: Social History Observation Description Date Details (start date - stop date) Former Smoker NA - 12/31/2009 Tobacco Use/Smoking Question Answer Notes Patient is a former smoker When did you stop smoking? 12/31/2009 How long has it been since you last smoked? > 10 years Problems Problem Type SNOMED Code ICD Code Onset Dates Problem Status W/U Status Risk Notes Problem Well adult ([id number]) Well adult (Z00.00) Active confirmed Vital Signs Blood pressure systolic 122 mm Hg 08/11/20 25 Blood pressure diastolic 80 mm Hg 025 Height 67 in 08/11/2025 Weight 177.0 lbs 08/11/2025 BMI 27.72 kg/m2 08/11/2025 Encounters Encounter Location Date Provider Diagnosis [facility] [address] [place] [address] 08/11/2025 Finesse Marinelli Hypercholesteremia E 78.00 ; Arthritis of right hand M19.041 ; Low testosterone E34.9 and Well adult Z00.00 Assessments Encounter Date Diagnosis (ICD Code) Assessment Notes Treatment Notes Treatment Clinical Notes Section Notes 08/11/2025 Hypercholesteremia (ICD-10 - E78.00) 08/11/2025 Arthritis of right hand (ICD-10 - M19.041) 08/11/2025 Low testosterone (ICD-10 - E34.9) 08/11/2025 Well adult (ICD-10 - Z00.00) Plan Of Treatment Medication Medication Name Sig Start Date Stop Date Notes Gabapentin 100 MG 1 am, 1 afternoon, 3 at hs Orally Once a day for 30 days 06/01/2025 tiZANidine HCl 2 MG 1 tablet at bedtime as needed Orally Once a day for 30 days 07/04/2025 Pending Test Test Name Order Date HEMOGLOBIN A1C (GLYCO) 08/11/2025 IRON, TOTAL 08/11/2025 LIPID PANEL (CHOL/TRIG/HDL/LDL) 08/11/20 25 IGG, IGA and IGM, TOTAL (IMMUNOGLOBULINS ) 08/11/2025 VITAMIN D, 25 LEVEL (TOTAL) 08/11/2025 Urinalysis Microscopic 08/11/2025 RHEUMATOID PANEL 08/11/2025 Insulin Level 08/11/2025 STOOL OCCULT BLOOD 08/11/2025 CULTURE URINE 08/11/2025 MAGNESIUM 08/11/2025 PHOSPHORUS 08/11/2025 TESTOSTERONE, TOTAL 08/11/2025 THYROID ANTIBODIES 08/11/2025 VIT B12 AND FOLATE 08/11/2025 THYROID PANEL (T4/TSH/FREE T3) US renal bladder 08/11/2025 CMP (COMP MET LOVE) w/eGFR CKD-EPI 2024 CBC WITH DIFF 08/11/2025 Progress Notes * Paige KEATING NDOB: [birth year] (50 yo F)Acc No.[id number]:08/11/2025 UNLOCKED PROGRESS NOTE Progress Note Patient: Paige GOLD N Provider: Paris Marinelli ([facility])MD :1975 A ge:50 Y S ex:Female Date:08/11/2025 Address:[address] [place] [address] [place], [id number] Check In:04:03 PM ESTCheck O ut:04:59 PM EST Subjective: * Chief Complaints: * 1 . Wellness. * HPI: G eneral: well adult. * ROS: E ENT: hearing changes d enies. v isual changes d enies.?non-healing mouth sores d enies. s wollen glands or neck lumps d enies. h oarseness d enies. s ore throat d enies. d ifficulty swallowing d enies. n ose bleeds d enies. n h[place] congestion d enies. e ar ache d enies. e ar discharge?denies. r inging in ears d enies. l ight sensitivity d enies. e ye pain d enies. b lurring d enies. e ye irritation d enies. d ouble vision d enies.?vision loss d enies. G eneral/Constitutional: Sweats: D enies. F atigue d enies. S leep problems d enies. A norexia d enies. M alaise d enies. W eight loss d enies.?Fatigue or Weakness d enies. F ever or Chills d enies. C ardiovascular: Shortness of Breath w/lying flat d enies. L ightheadedness/dizziness d enies. C hest tightness/ heavy pressure d enies. S welling of legs, ankles, or feet d enies. W aking up with shortness of breath d enies. C hest pain denies. P alpitations d enies. W eight gain d enies. R espiratory: Chronic or frequent cough d enies. C oughing up blood?denies. D ifficulty breathing d enies. P roductive cough d enies. S noring?denies. S hortness of breath that awakens from sleep (PND) d enies. C hest pain d enies. S putum production d enies. W heezing d enies. M usculoskeletal: Joint pain d enies. J oint Fluid d enies. B ack pain d enies. K nee pain d enies. N shaggy pain d enies. J oint Stiffness d enies. M uscle cramps d enies. W eakness of muscles d enies. A rthritis d enies. M uscle aches d enies. P ain in shoulder(s) d enies. S wollen joints d enies. * Medical History: H ypertension, Vision changes, Pre-diabetes, Fatigue, Other specified arthritis, right hand, Diverticula of colon, Snorings, Plantar fasciitis, Nasal obstruction, GERD (gastroesophageal reflux disease), Gastric ulcer, Adenoma of colon, Bullous lesion of soft palate, Arthralgia, Irritable bowel syndrome (IBS), Anxiety, DUB (dysfunctional uterine bleeding), Ovarian cyst, right. * Surgical History: T ubal Ligation , Endometrial Polyp removal , Cholecystectomy , hysterectomy , colonoscopy 2020, Bilateral L3-4 transforaminal epidural steroid inj 10/04/24, EGD- Dr Li Promedicjere 10/02/24, Right Sacroiliac joint injection- Dr Jara 11/15/24, Right index finger steroid injection 01/2025. * Hospitalization/Major Diagno stic Procedure: D enies Past Hospitalization. * Family History: F ather: 68 yrs, type II diabetes, diagnosed with Diabetes mellitus without mention of complication, type II or unspecified type, not stated as uncontrolled. M other: 68 yrs, hyperthyroidism, Lung cancer, diagnosed with Other malignant neoplasm of unspecified site. S ischetan(s): alive. D alexandr(s): alive. 1 sister(s) . 2 daughter(s) - healthy. . * Social History: T obacco Use: T obacco Use/Smoking P atient is a f ormer smoker W hen did you stop smoking? 0 12/31/2009 H ow long has it been since you last smoked??> 10 years * Medications: T aking Adderall(Amphetamine-Dextroamphetamine) 10 MG Tablet 1 tablet Orally Q afternoon , Taking Adderall(Amphetamine-Dextroamphetamine) 30 MG Tablet 1 tablet Orally q am , Taking Adderall XR(Amphetamine-Dextroamphet ER) 30 MG Capsule Extended Release 24 Hour 1 capsule in the morning Orally Once a day , Taking ALPRAZolam 0.25 MG Tablet 1 tablet Orally once daily As needed F41.9, Taking Baclofen 5 MG Tablet 1-2 tablet as needed Orally at HS PRN , Taking Cipro(Ciprofloxacin HCl) 500 MG Tablet 1 tablet Orally BID , Taking Estradiol 0.5 MG Tablet 1 tablet Orally Once a day , Taking Gabapentin 100 MG Capsule 1 capsule at bedtime Orally Once a day , Taking Gabapentin 100 MG Capsule 1 capsule at bedtime Orally Once a day , Taking Lasix(Furosemide) 20 MG Tablet 1 tablet Orally Once a day , Notes to Pharmacist: PRN, Taking Lisinopril 10 MG Tablet 1 tablet Orally Once a day , Taking metFORMIN HCl 500 MG Tablet 1 tablet with a meal Orally BID , Taking Metoprolol Tartrate 75 mg Tablet TAKE 1 TABLET TWICE A DAY WITH FOOD , Taking Mupirocin 2 % Ointment 1 application Externally Twice a day , Taking Nabumetone 750 MG Tablet as directed Orally BID , Taking Neurontin(Gabapentin) 100 MG Capsule 2 capsule at bedtime Orally Once a day , Taking Omeprazole 40 MG Capsule Delayed Release 1 capsule Orally twice a day , Taking Ondansetron 4 MG Tablet Disintegrating 1 tablet on the tongue and allow to dissolve Orally Once a day , Taking Potassium Chloride ER 10 MEQ Tablet Extended Release 1 tablet with food Orally Twice a day , Notes to Pharmacist: PRN, Taking Semaglutide 0.6 mg/0.5 mL Semaglutide 0.6 mg/0.5 mL Solution Auto-injector 0.5 mL Subcutaneous Once Weekly , Taking Terbinafine HCl 250 MG Tablet 1 tablet Orally Once a day , Taking Testosterone 10 MG/ACT (2%) Gel 1 pump to skin in the morning to the thighs Transdermal QOD , Taking tiZANidine HCl 2 MG Tablet 1 tablet at bedtime as needed Orally Once a day , Medication List reviewed and reconciled with the patient * Allergies: A lbuterol: seizure - Allergy, Macrobid: neck swelling - Allergy. Objective: * Vitals: W t:177.0lbs, Ht: 67 in, BP:122/80mm Hg, BMI:27.72Index, Ht-cm: 170.18 cm, Wt-k.29 kg. * Examination: P hysical Exam: GENERAL: w ell developed, well nourished, in no acute distress. HEAD: n ormocephalic/atraumatic. EYES: p upils equal, round and reactive to light, conjunctivae and sclerae normal. EARS: n o deformity or lesion of external ear, canals and TM appear normal bilaterally, TM's intact, not inflamed with normal light reflex, hearing grossly normal to conversational speech. NOSE: n o deformity, discharge, inflammation, or lesions.? MOUTH: m ucous membranes moist, normal oropharynx and posterior pharynx without lesions or exudates, tongue normal, dentition normal. NECK: n shaggy supple, no masses or palpable cervical nodes, trachea midline, thyroid without nodules, masses, tenderness, or enlargement. CHEST: n o chest wall deformity, no chest wall tenderness.? LUNGS: n ormal respiratory effort and clear to auscultation, no wheezes, rales, or rhonchi, good air exchange. CARDIO: r egular rate and rhythm, normal S1 and S2, nor murmur, rub, or gallop. PULSES: n ormal capillary refill. ABDOMEN: s oft, non-distended, non-tender, no masses. MUSCULOSKELETAL: n o deformity or scoliosis noted, normal range of motion, joints normal, no erythema, edema, effusion, or ecchymosis. EXTREMITY: n o clubbing, cyanosis, edema, or deformity with normal ROM in both upper and lower bilateral extremities. NEUROLOGIC: g rossly normal. SKIN: n o rashes, ulcerations, or suspicious lesions. LYMPH NODES: n o cervical adenopathy, nodes normal. MENTAL STATUS: a lert and oriented x3, normal mood and affect. Assessment: * Assessment: 1. H ypercholesteremia - E78.00 (Primary) 2 . A rthritis of right hand - M19.041 3 . L ow testosterone - E34.9 4 . W ell adult - Z00.00? Plan: * Treatment: 2. A rthritis of right hand L AB: HEMOGLOBIN A1C (GLYCO) L AB: IRON, TOTAL L AB: LIPID PANEL (CHOL/TRIG/HDL/LDL) L AB: VITAMIN D, 25 LEVEL (TOTAL) L AB: Insulin Level L AB: STOOL OCCULT BLOOD L AB: TESTOSTERONE, TOTAL L AB: THYROID PANEL (T4/TSH/FREE T3) L AB: CMP (COMP MET LOVE) w/eGFR CKD-EPI L AB: CBC WITH DIFF 3. L ow testosterone L AB: HEMOGLOBIN A1C (GLYCO) L AB: IRON, TOTAL L AB: LIPID PANEL (CHOL/TRIG/HDL/LDL) L AB: VITAMIN D, 25 LEVEL (TOTAL) L AB: Insulin Level L AB: STOOL OCCULT BLOOD L AB: TESTOSTERONE, TOTAL L AB: THYROID PANEL (T4/TSH/FREE T3) L AB: CMP (COMP MET LOVE) w/eGFR CKD-EPI L AB: CBC WITH DIFF 4. W ell adult Refill Gabapentin Capsule, 100 MG, 1 am, 1 afternoon, 3 at hs, Orally, Once a day, 30 days; R efill tiZANidine HCl Tablet, 2 MG, 1 tablet at bedtime as needed, Orally, Once a day, 30 days, 30, Refills 11. L AB: HEMOGLOBIN A1C (GLYCO) L AB: IRON, TOTAL L AB: LIPID PANEL (CHOL/TRIG/HDL/LDL) L AB: VITAMIN D, 25 LEVEL (TOTAL) L AB: Urinalysis Microscopic L AB: Insulin Level L AB: STOOL OCCULT BLOOD L AB: CULTURE URINE L AB: TESTOSTERONE, TOTAL L AB: THYROID ANTIBODIES L AB: THYROID PANEL (T4/TSH/FREE T3) L AB: CMP (COMP MET LOVE) w/eGFR CKD-EPI L AB: CBC WITH DIFF I maging: US renal bladder * Preventive Medicine: Screenings/Counseling: B KS ACTION PLAN Above Normal BMI Follow-up D ietary management education, guidance, and counseling * * Electronic signature of Finesse Marinelli MD, [phone] on 08/13/2025 at 11:41 AM EDT Sign off status: Pending Visit Status: Taz JIMENEZ (Check Out) * Provider: Paris Marinelli ([facility])MD Date: 08/11/2025 Generated for Printi ng/Faxing/eTransmitting on: 08/13/2025 11:41 AM EDT History and Physical Notes * HPI (History of Present Illness) Category Sub-Category Detail Notes Category Not es General well adult Examination Category Sub-Category Detail Notes Category Not es Physical Exam GENERAL: well developed, well nourished, in no acute distress HEAD: normocephalic/atraum atic EYES: pupils equal, round and reactive to light, conjunctivae and sclerae normal EARS: no deformity or lesi on of external ear, canals and TM appear normal bilaterally, TM's intact, not inflamed with normal light reflex, hearing grossly normal to conversational speech NOSE: no deformity, discha rge, inflammation, or lesions MOUTH: mucous membranes maureen st, normal oropharynx and posterior pharynx without lesions or exudates, tongue normal, dentition normal NECK: neck supple, no mass es or palpable cervical nodes, trachea midline, thyroid without nodules, masses, tenderness, or enlargement CHEST: no chest wall deform ity, no chest wall tenderness LUNGS: normal respiratory e ffort and clear to auscultation, no wheezes, rales, or rhonchi, good air exchange CARDIO: regular rate and rhy thm, normal S1 and S2, nor murmur, rub, or gallop PULSES: normal capillary ref ill ABDOMEN: soft, non-distended, non-tender, no masses RECTAL: MUSCULOSKELETAL: no deformity or scol iosis noted, normal range of motion, joints normal, no erythema, edema, effusion, or ecchymosis EXTREMITY: no clubbing, cyanosi s, edema, or deformity with normal ROM in both upper and lower bilateral extremities NEUROLOGIC: grossly normal SKIN: no rashes, ulceratio ns, or suspicious lesions LYMPH NODES: no cervical adenopat hy, nodes normal MENTAL STATUS: alert and oriented x 3, normal mood and affect
--- OUTSIDE RECORDS SUMMARY | 2025-08-11 12:49 | XMS_ITS ---
Author Organization [facility] in [place] Address [address] [place] [address] Care Team Providers Care Commodity Director Name Role Phone Yves Finesse Primary Care Provider [phone] Reason For Referral Diagnosis 1 Other specified arth ritis, right hand (M13.841) Referral Organization [facility] Referring Provider First Name Finesse Referring Provider Last Name Yves Referring Provider [facility] icine Referred Provider Rosalind Lara Referred Provider Specialty Orthopedic S urgery Referral Priority Routine REASON FOR VISIT referral to Dr. Lara Encounters Encounter Location Date Provider Diagnosis [facility] [address] [place] [address] 08/11/2025 Finesse Marinelli Other specified arthritis, right hand M13.841 Assessments Encounter Date Diagnosis (ICD Code) Assessment Notes Treatment Notes Treatment Clinical Notes Section Notes 08/11/2025 Other specified arthritis, right hand (ICD-10 - M13.841) Plan Of Treatment Referrals Referral Date Details 08/11/2025 08/11/2025, Rosalind Lara Progress Notes * Paige KEATING NDOB: [birth year] (50 yo F)Acc No.[id number]:08/11/2025 Patient: Paige GOLD :1975 A ge:50 Y S ex:Female Address:[address] [place] [address] [place], [address] Subjective: * Chief Complaints: * r eferral to Dr. Lara * Medical History: * Surgical History: * Hospitalization/Major Diagno stic Procedure: * Medications: Objective: * Vitals: * Physical Examination: Assessment: * Assessment: 1. O ther specified arthritis, right hand - M13.841 (Primary) Plan: * Treatment: * Procedure Codes: * true * Date: Generated for Printi ng/Aftabg/eTransmitting on: 0 08/13/2025 11:41 AM EDT Consultation Request Notes Referral Date Referring Provider Referred Provider Not es 08/11/2025 Finesse Marinelli Colleen
--- OUTSIDE RECORDS SUMMARY | 2025-08-13 11:42 | XMS_ITS | Clinical Summary ---
Author Organization [facility] Address [address], [place] [address] Care Team Providers Care Forensic Document Examiner Name Role Phone Varun Marinelli MD Primary Care Provider [phone] Tiesha Hughes CONTROLS ENGINEER Unavailable [phone] Shasha White DO Unavailable Allergies Active Allergy Reactions Criticality Noted Date Comments Albuterol Other 06/26/2023 convulsions NEED TO CUT DOWN ADRENALIN TO PREVENT SEIZURES Other Reaction(s): seizure Bee Venom 04/05/2024 Other Reaction(s): Nausea, Swelling Egg-Derived Products 04/05/2024 Other Reaction(s): Hives, Unknown Nitrofurantoin Swelling 05/01/2018 Other Reaction(s): Neck swelling, Unknown Nitrofurantoin Macrocrystal 04/05/20 Other Reaction(s): Unknown Other 05/13/2005 Pecans Medications ALPRAZolam (Xanax) 0.25 MG tablet Take 0.25 mg by mouth 3 (three) times a day as needed. 02/04/20 23 Active doxepin (SINEquan) 10 MG capsule Take 10 mg by mouth at bedtime. 06/09/20 23 Active metoprolol tartrate (Lopressor) 75 MG tablet Take 50 mg by mouth in the morning and 50 mg before bedtime. 05/17/20 23 Active meloxicam (Mobic) 15 MG tablet Take 15 mg by mouth in the morning. 06/14/20 23 Active omeprazole (PriLOSEC) [address] capsule Take 40 mg by mouth in the morning and 40 mg in the evening. Active phentermine (Adipex-P) 37.5 MG tablet Take 37.5 mg by mouth in the morning. Take before meals. 06/13/20 Active tiZANidine (Zanaflex) 4 MG tablet Take 8 mg by mouth at bedtime. 06/13/20 23 Active testosterone (Fortesta) 10 MG/ACT (2%) gel gel 1 pump to skin in the morning to the thighs Transdermal QOD for 30 days 10/19/20 24 Active metFORMIN (Glucophage) 500 MG tablet Take 500 mg by mouth in the morning and 500 mg in the evening. Take with meals. Active amphetamine-dex troamphetamine XR (Adderall XR) 30 MG 24 hr capsule Take 30 mg by mouth in the morning. Do not crush or chew.. Active amphetamine-dex troamphetamine (Adderall) 10 MG tablet Take 10 mg by mouth Daily as needed Active lisinopril 20 MG tablet Take by mouth Daily Active celecoxib (CeleBREX) 100 MG capsule Take 100 mg by mouth in the morning and 100 mg before bedtime. Active gabapentin (Neurontin) 100 MG capsule Take by mouth 2 (two) times a day Active semaglutide (Ozempic, 0.25 or 0.5 MG/DOSE,) 2 MG/1.5ML solution pen-injector Inject under the skin Active estradiol (Estrace) 1 MG tabletIndicatio ns:H/O: hysterectomy TAKE 1 TABLET DAILY (PATIENT NEEDS TO SCHEDULE OFFICE VISIT PRIOR TO ADDITIONAL REFILLS) 90 tablet 3 07/15/20 25 Active estradiol (Estrace) 1 MG tabletIndicatio ns:H/O: hysterectomy Take 1 tablet (1 mg) by mouth Daily 90 tablet 04/14/20 25 025 Discontinued Encounters Date Type Department Care Team Description 07/14/2025 Refill [facility] [address] [place] [address] Aura Murillo, H/O: hysterectomy from Last 3 Months Family History Medical History Relation Name Comments Diabetes Father Hypertension Father Stroke Father Lung cancer Maternal Grandfather Breast cancer Maternal Grandmother Osteoporosis Mother Thyroid disease Mother Leukemia Other Great Aunts other unknown cancer Other Great Aunts Diabetes Paternal Grandmother Ovarian cancer Paternal Grandmother Relation Name Status Comments Father Maternal Grandfather Maternal Grandmother Mother Other Great Aunts Paternal Grandmother Social History Tobacco Use Types Packs/Day Years Used Date Smoking Tobacco: Every Day Cigarettes Tobacco Cessation:Ready to Q uit: Not Asked; Counseling Given: Not Answered Alcohol Use Standard Drinks/Week Comments Yes 0 (1 standard drink = 0.6 oz pure alcohol) Alcohol: 1 or 2 drinks, 2 to 4 times a month; Caffeine: 1-2 cups/day AUDIT-C Answer Date Recorded Q1: How often do you have a drink containing alc ohol? 2-4 times a month 10/20/2023 Q2: How many drinks containi ng alcohol do you have on a typical day when you are drinking? 1 or 2 10/20/2023 Q3: How often do you have si x or more drinks on one occasion? Never 10/20/2023 Comments No Sex and Gender Information Value Date Recorded Sex Assigned at Not on file Legal Sex Female 6:36 PM EDT Gender Identity Not on file Sexual Orientation Not on file Last Filed Vital Signs Vital Sign Reading Time Taken Comments Blood Pressure 128/76 02/03/2025 8:24 AM EST Pulse 75 02/03/2025 8:24 AM EST Temperature - - Respiratory Rate - - Oxygen Saturation 97% 02/03/2025 8:24 AM EST Inhaled Oxygen Concentration - - Weight 83.5 kg (184 lb) 02/03/2025 8:24 AM EST Height 167.6 cm (5' 6 ) 02/03/2025 8:24 AM EST Body Mass Index 29.7 02/03/2025 8:24 AM EST Plan of Treatment Health Maintenance Due Date Last Done Comments CT Colonography 1976 FIT-DNA 1976 FIT 1976 FOBT 1975 Sigmoidoscopy 1975 Influenza Vaccine (#1) 2025 Mammogram 01/28/2026 01/28/2025, 11/27/2023 Pap Smear 11/22/2027 11/22/2024, 10/23/2023 Cervical Cancer Screening 10/23/2028 HPV/Cotest 10/23/2028 Colonoscopy 10/27/2034 10/27/2024, 10/02, 10/27/2024, Additional history exists Colorectal Cancer Screening 10/27/2034 Procedures Procedure Name Priority Date/Time Associated Diagnosis Comments MM TOMOSYNTHESIS SCREENING BI 01/28/2025 1:49 PM EST PAP SMEAR Routine 11/22/2024 12:00 AM EST from Last 3 Months or Most Recently Relevant to Health Maintenance Results * MM TOMOSYNTHESIS SCREENING BI (01/28/2025 1:49 PM EST) Anatomical Region Laterality Modality Other 01/28/2025 1:49 PM EST Narrative 01/28/2025 1:50 [place] [address] Mammography Report Signed Patient: PAIGE KEATING MR#: [id number] : 1975 Acct:[id number] Age/Sex: 49 / F ADM Date: 01/28/25 Loc: MAMMO Attending Dr: Aura Mruillo D.O. Ordering Physician: Aura Murillo D.O. Results: Date of Service: 01/28/25 Follow Up: Procedure(s): MM tomosynthesis screening BI Accession Number(s): [id number] cc: Aura Murillo D.O.; Varun Marinelli M.D. Patient Name: PAIGE KEATING MR#: [id number] : 1975 Exam Date: 01/28/2025 Ordering Doctor: DR AURA MURILLO . RADIOLOGY REPORT PROCEDURE: MM TOMOSYNTHESIS SCREENING BI COMPARISON: MM TOMOSYNTHESIS SCREENING BI, 11/26/2023. MG MAMM SCREEN 3D DEAN CAD, 09/12/2022. MG MAMM SCREEN 3D DEAN CAD, 07/26/2021. MG MAMM DEAN DIAG W CAD DIG, 05/26/2007. INDICATIONS: Screening Calculator Name NCI Breast Cancer Risk Assessment Tool 5 Year Breast Cancer Risk 1.50% Lifetime Breast Cancer Risk 13.20% Personal Breast Cancer No Personal Ovarian Cancer No Treatments None Family Cancers Mother with lung cancer at age 68; Grandmother-maternal with breast cancer at age 64; Grandmother-paternal with ovarian cancer at age 76. LOCATION: [facility] BREAST COMPOSITION: There are scattered areas of fibroglandular density. FINDINGS: RIGHT BREAST: No significant suspicious finding. LEFT BREAST: No significant suspicious finding. There is a similar focal asymmetry of the left breast. Benign-appearing lymph nodes in the along the left chest wall paired DIAGNOSTIC CATEGORY 2--BENIGN FINDING. NO CHANGE FROM COMPARISON. RECOMMENDATIONS: ROUTINE MAMMOGRAM AND CLINICAL EVALUATION IN 12 MONTHS. PLEASE NOTE: A NORMAL MAMMOGRAM DOES NOT EXCLUDE THE POSSIBILITY OF BREAST CANCER. A CLINICALLY SUSPICIOUS PALPABLE LUMP SHOULD BE BIOPSIED. Dictated by: J Carlos Cat MD on 01/28/2025 at 13:44 Approved by: J Carlos Cat MD on 01/28/2025 at 13:46 Dictated By: J Carlos Cat M.D. Signed By: 01/28/25 1350 DD/ 1349 TD/TT: Surgical Dental Assistant: Procedure Note Radiology, Radiologist, - 01/28/2025 [place] [address] Mammography Report Signed Patient: PAIGE KEATING NMR#: [id number] : 1975Acct:[id number] Age/Sex: 49 / FADM Date: 01/28/25 Loc: MAMMO Attending Dr: Aura Murillo D.O. Ordering Physician: Aura Murillo D.O.Results: Date of Service: 01/28/25Follow Up: Procedure(s): MM tomosynthesis screening BI Accession Number(s): [id number] cc: Aura Murillo D.O.; Varun Marinelli M.D. Patient Name: PAIGE KEATING MR#: [id number] : 1975 Exam Date: 01/28/2025 Ordering Doctor: DR AURA MURILLO . RADIOLOGY REPORT PROCEDURE: MM TOMOSYNTHESIS SCREENING BI COMPARISON: MM TOMOSYNTHESIS SCREENING BI, 11/26/2023. MG MAMM [id number] DEAN CAD, 09/12/2022. MG MAMM SCREEN 3D DEAN CAD, 07/26/2021. MG MAMM BILDIAG W CAD DIG, 05/26/2007. INDICATIONS: Screening Calculator Name NCI Breast Cancer Risk Assessment Tool 5 Year Breast Cancer Risk 1.50% Lifetime Breast Cancer Risk 13.20% Personal Breast Cancer No Personal Ovarian Cancer No Treatments None Family Cancers Mother with lung cancer at age 68; Grandmother-maternal with breast cancer at age 64; Grandmother-paternal with ovarian cancer atage 76. LOCATION: [facility] BREAST COMPOSITION: There are scattered areas of fibroglandulardensity. FINDINGS: RIGHT BREAST: No significant suspicious finding. LEFT BREAST: No significant suspicious finding. There is a similar focal asymmetry of the left breast. Benign-appearing lymph nodes in the alongthe left chest wall paired DIAGNOSTIC CATEGORY 2--BENIGN FINDING. NO CHANGE FROM COMPARISON. RECOMMENDATIONS: ROUTINE MAMMOGRAM AND CLINICAL EVALUATION IN 12 MONTHS. PLEASE NOTE: A NORMAL MAMMOGRAM DOES NOT EXCLUDE THE POSSIBILITY OFBREAST CANCER. A CLINICALLY SUSPICIOUS PALPABLE LUMP SHOULD BE BIOPSIED. Dictated by: J Carlos Cat MD on 01/28/2025 at 13:44 Approved by: J Carlos Cat MD on 01/28/2025 at 13:46 Dictated By: J Carlos Cat M.D. Signed By:01/28/25 1350 DD/ 1349 TD/TT: Surgical Dental Assistant: us Aura Lidia DO [facility] Final Result * Pap Smear (11/22/2024 12:00 AM EST) Swab Cervical swab / Unknown us Aura Lidia DO LAB CYTOLOGY ORDERABLES Final Re sult EXTERNAL LAB from Last 3 Months or Most Recently Relevant to Health Maintenance Insurance [employer] Care Teams Forensic Document Examiner Relationship Specialty Start Date End Date Varun Marinelli MD PCP - General Family Medicine 06/26/23 Tiesha Hughes NP Nurse Practitioner Neurology 02/03/25 Shasha White DO [address] [place] [address] Referring Physician Neurology 02/03/25
--- OUTSIDE RECORDS SUMMARY | 2025-08-13 11:42 | XMS_ITS | Clinical Summary ---
Author Organization [employer] [facility] Address [id number] [address] [place] [address] Care Team Providers Care State Historical Society Director Name Role Phone Varun Marinelli MD Primary Care Provider [phone] Allergies Active Allergy Reactions Criticality Noted Date Comments Albuterol Other (See Comments) High 07/16/2017 convulsions NEED TO CUT DOWN ADRENALIN TO PREVENT SEIZURES Other Reaction(s): seizure Bee Venom Protein (Honey Bee) 04/05/2024 Other Reaction(s): Nausea, Swelling Nitrofurantoin Monohyd/M-Cryst Swelling 05/01/2018 Glands in neck Other 05/13/2005 Tree Nut 10/20/2024 Pecans Medications omeprazole (PriLOSEC) 40 mg capsule Take 1 capsule (40 mg total) by mouth in the morning and 1 capsule (40 mg total) before bedtime. Active amphetamine-dex troamphetamine XR (ADDERALL XR) 30 mg 24 hr capsule Take 1 capsule (30 mg total) by mouth every morning. Active lamoTRIgine (LaMICtal) 25 mg tablet Take 1 tablet (25 mg total) by mouth in the morning. Active aspirin 325 mg EC tablet Take 1 tablet (325 mg total) by mouth in the morning. Active celecoxib (CeleBREX) 100 mg capsule Take 1 capsule (100 mg total) by mouth in the morning and 1 capsule (100 mg total) before bedtime. Active lisinopriL (PRINIVIL,ZESTR IL) 20 mg tablet Take 1 tablet (20 mg total) by mouth in the morning. Active ALPRAZolam (XANAX) 0.25 mg tablet Take 1 tablet (0.25 mg total) by mouth nightly as needed for anxiety. Active tiZANidine (ZANAFLEX) 4 mg tablet Take 1 tablet (4 mg total) by mouth every 6 (six) hours as needed for muscle spasms. Active semaglutide (OZEMPIC) 0.25 mg or 0.5 mg(2 mg/1.5 mL) pen injector Inject 0.6 mg under the skin every 7 days. mondays Active polycarbophil (FIBERCON) 625 mg tablet Take 1 tablet (625 mg total) by mouth in the morning. Active docusate sodium (COLACE) 50 mg capsule Take 1 capsule (50 mg total) by mouth in the morning and 1 capsule (50 mg total) before bedtime. Active metoprolol tartrate (LOPRESSOR) 100 mg tablet Take 75 mg by mouth in the morning and 75 mg before bedtime. Active estradioL (ESTRACE) 0.5 mg tablet Take 1 tablet (0.5 mg total) by mouth in the morning. Active acidophilus-pec tin, citrus 25 million cell -100 mg tablet Take 1 tablet by mouth in the morning and 1 tablet at noon and 1 tablet in the evening. Take with meals. Active metFORMIN (GLUCOPHAGE) 500 mg tablet Take 1 tablet (500 mg total) by mouth in the morning and 1 tablet (500 mg total) in the evening. Take with meals. 10/13/2024 Active Active Problems No known active problems Family History Medical History Relation Name Comments Diabetes Father Kidney disease Father Hypothyroidism Mother Relation Name Status Comments Daughter 1 Alive Daughter 2 Alive Father Mother Sister Alive Social History Tobacco Use Types Packs/Day Years Used Date Smoking Tobacco: Some Days Vaping/E-cigarettes Smokeless Tobacco: Never Tobacco Cessation:Ready to Q uit: Not Asked; Counseling Given: Not Answered Alcohol Use Standard Drinks/Week Comments Yes 0 (1 standard drink = 0.6 oz pur e alcohol) rare Childcare Answer Date Recorded Childcare Unknown 05/12/2019 Employment Answer Date Recorded Employment Unknown 05/12/2019 Purpose - Life Answer Date Recorded Purpose and direction in life Unknown Comments No Sex and Gender Information Value Date Recorded Sex Assigned at Female 12/06/2022 11:09 AM EST Legal Sex Female 11:35 AM EDT Gender Identity Female 12/06/2022 11:09 AM EST Sexual Orientation Lesbian 12/06/2022 11 :09 AM EST Last Filed Vital Signs Vital Sign Reading Time Taken Comments Blood Pressure 107/79 10/27/2024 10:55 AM EST Pulse 51 10/27/2024 10:55 AM EST Temperature 36.6 C (97.9 F) 10/27/2024 9:11 AM EST Respiratory Rate 17 10/27/2024 10:55 AM EST Oxygen Saturation 98% 10/27/2024 10:55 AM EST Inhaled Oxygen Concentration - - Weight 79.8 kg (176 lb) 10/27/2024 9:11 AM EST Height 167.6 cm (5' 6 ) 10/27/2024 9:11 AM EST Body Mass Index 28.41 10/27/2024 9:11 AM EST Plan of Treatment Health Maintenance Due Date Last Done Comments Tobacco Counseling 1976 Depression Screening 1988 Adult BMI Follow Up Plan 1994 DTaP,Tdap and Td Vaccines (1 - Tdap) 1995 COVID-19 Vaccine (4 - 2023-2 5 season) 2024 11/17/2021, 02/02/2021, 01/12/2021 Influenza Vaccine 08/01/2025 10/02/2004 Adult BMI Screening 10/27/2025 10/27/2024 Tobacco Screening 10/27/2025 10/27/2024 Colonoscopy 10/27/2034 10/27/2024, 10/02, 05/28/2021, Additional history exists Pap Smear Discontinued 10/23/2023 Medical Devices Not on file Procedures Procedure Name Priority Date/Time Associated Diagnosis Comments PROVATION COLONOSCOPY Routine 10/27/2024 9:03 AM EST from Last 3 Months or Most Recently Relevant to Health Maintenance Results * Colonoscopy Report (10/27/2024 9:03 AM EST) Narrative SYSTEMGENERATED, DOCUMENTATION - 10/27/2024 9:03 AM EST This order has been auto-finalized for image and report archival in PACs. *For full report details, please reach out to your physician. This image is visible to you in MyChart.* Cande Li MD IMG OR IMG ORDERABLES Chelsy l Result from Last 3 Months or Most Recently Relevant to Health Maintenance Insurance [employer] Member Subscriber Plan / Payer (Ef fective 2014-Present) Name:Paige Marroquin Relation to Subscriber:Self Name:Paige Marroquin Payer ID:Not on file Type:Not on file Address: [place] [id number] Care Teams State Historical Society Director Relationship Specialty Start Date End Date Varun Marinelli MD PCP - General 05/04/18
--- OUTSIDE RECORDS SUMMARY | 2025-08-13 11:42 | XMS_ITS | Patient Health Record ---
Author Organization [facility] Address [address] [place] [address] Care Team Providers Care Petroleum Transport Driver Name Role Phone Varun Marinelli Primary Care Provider Unavailsalome Edwige Angeles Unavailable [phone] Aman Cifuentes Unavailable [phone] xxAngleShikha bateman Unavailable Allergies Allergen (clinical drug ingredient) Drug/Non Drug Allergy documented on EMR Reaction Allergy Type Onset Date Status bees (uncoded) swollen Allergy Activ e pecans (uncoded) coughing, seizure Allergy Active nitrofurantoin, macrocrystals / nitrofurantoin, monohydrate Macrobid swollen glands Drug Allergy Active Reason For Referral No Information Medications Medication SIG (Take, Route, Frequency, Duration) Notes Start Date End Date Status Ozempic Active doxepin Active indomethacin Active Zanaflex Active Xanax Active Adderall Active Aspirin Active Prilosec Active lisinopril Active Lopressor Active Social History Tobacco Use: Social History Observation Description Date Details (start date - stop date) Former Smoker NA - NA AUDIT-C (Standard) Question Answer Notes Did you have a drink containing alcohol in the p ast year? No Points 0 Interpretation Negative Tobacco Control (Standard) Question Answer Notes Tobacco use: Former smoker How long has it been since you last smoked? 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) Active confirmed Problem 144148394784956 HNP (herniated nucleus pulposus), thoracic (M51.24) Active confirmed Problem 688187470 Facet arthropath y (M47.819) Active confirmed Problem Cervical facet joint pain (finding) (677936459) Cervical facet syndrome (M47.812) Active confirmed Problem 723281456 Scapular dyskinesis (G25.89) Active confirmed Problem Lumbar arthritis (disorder) (733207258) 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) Active confirmed Problem 227934776 Facet arthropath y, 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) Active confirmed Problem Degeneration of cervical intervertebral disc (32592776) 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) Active confirmed Problem 35736494 Lumbar stenosis with neurogenic claudication (M48.062) Active confirmed Problem Degeneration of cervical intervertebral disc (23783716) Degeneration of intervertebral disc at C6-C7 level (M50.323) Active confirmed Problem 77764495 DDD (degenerativ e disc disease), cervical (M50.30) Active confirmed Problem 21722779 Muscle spasm (M62.838) Active confirmed Problem 239227770738926 Primary osteoarthritis, right hand (M19.041) Active confirmed Encounters Encounter Location Date Provider Diagnosis [facility] Office [facility] [place] [address] [place] [address] 01/17/2025 Aman Cifuentes Primary osteoarthritis, right hand M19.041 [place] [address] [address] [facility] [place] [address] [place] [address] [facility]iated nucleus pulposus), thoracic M51.24 ; Muscle spasm M62.838 and Scapular dyskinesis G25.89 Assessments Encounter Date Diagnosis (ICD Code) Assessment Notes Treatment Notes Treatment Clinical Notes Section Notes 01/17/2025 Primary osteoarthritis , right hand (ICD-10 - M19.041) 02/18/2025 Muscle spasm (ICD-10 - M62.838) 1. T8-9 HNP 2. Scapular dyskinesia 3. Muscle spasms 02/18/2025 HNP (herniated nucleus pulposus), thoracic (ICD-10 - M51.24) 1. T8-9 HNP 2. Scapular dyskinesia 3. Muscle spasms 02/18/2025 Scapular dyskinesis (ICD-10 - G25.89) 1. T8-9 HNP 2. Scapular dyskinesia 3. Muscle spasms 01/17/2025 Other For right index finger arthritis she is interested in a repeat corticosteroid injection. 02/18/2025 Other Today I reviewed patient's MRI results with her and had a long discussion that I do not think this is contributing to her multiple complaints. She has no radicular pain or symptoms in the T8-9 distribution. I did give her a prescription for physical therapy and we did discuss posture and core training and pain possibly from arthritic changes or muscle spasm/fatigue. I encouraged her to follow-up with pain management as well. We can see the patient back on a as needed basis. The patient is very much in agreement with the treatment and/or diagnostic plan set forth and all questions were answered to the patient's satisfaction. Thanks once again. If we can be of further service to your patients with disorders of the spine, cervical, thoracic, or lumbar, please do not hesitate to contact Dr. Ward. Best regards, 1. T8-9 HNP 2. Scapular dyskinesia 3. Muscle spasms Plan Of Treatment Pending Test Test Name Order Date Cervical spine,ap,lat,flex,ext - [id number] 0 08/12/2024 MRI : Lumbosacral Spine W/O Contrast - 7 214705/03/2024 PT - Evaluate and Treat, as directed, 2 - 3 times a week x 4 - 6 weeks 02/18/2025 [facility] - Lumbar Spine PT Order, Isometrics & Strenghening w/Modalities as needed, 2-3 times per week for 6 weeks 08/12/2024 [facility] - Cervical Spine PT Orde r, Isometrics & Strenghening w/Modalities as needed. 2-3 x Week for 4-6 Weeks 08/12/2024 XR HIP 2-3 VW W PELVIS RIGHT 05/03/2024 [facility]- HAND 3 VIEW RIGHT [id number] 05/03/2024 [facility]- LUMBAR 4 VIEW [id number] 05/03/2024 Insurance Providers Payer Name Payer Address Payer Phone Subscriber Number Group Number Insured Name Patient Relationship to Insured Coverage Start Date Coverage End Date [facility] [address] [place] [phone] [id number] HORACIO KEATING Self - patient is the insured Medications Administered Medication Instructions Date of Administration Dosage Notes Depo-Medrol 01/17/2025 .5 mL lidocaine 01/17/2025 .5 mL Medical (General) History Medical History History ICD Code High Blood Pressure Abnormal Heart Rhythm Bronchitis Stomach ulcers Gastric Reflux Irritable bowel syndrome Stroke Seizures Osteoarthritis Anemia Ovarian Cysts Anxiety Surgical History Surgery Date(Month/Year) Knee surgery
--- OUTSIDE RECORDS SUMMARY | 2025-08-13 11:42 | XMS_ITS | Encounter Summary ---
Author Organization [facility] Address [address] [place] [address] Care Team Providers Care Flower Picker Name Role Phone Varun Marinelli MD Primary Care Provider [phone] Tiesha Hughes AMMUNITION AND EXPLOSIVES HANDLER Unavailable [phone] Shasha White DO Unavailable Encounter Details Date Type Department Care Team (Late st Contact Info) Description 10/07/2023 Clinisync Result Encounter [facility] External Department Unsolicited Aura Murillo DO [address] [facility] [place] [address] Social History Tobacco Use Types Packs/Day Years Used Date Smoking Tobacco: Every Day Cigarettes Alcohol Use Standard Drinks/Week Comments Yes 0 (1 standard drink = 0.6 oz pure alcohol) Alcohol: 1 or 2 drinks, 2 to 4 times a month; Caffeine: 1-2 cups/day Comments Unknown Sex and Gender Information Value Date Recorded Sex Assigned at Not on file Legal Sex Female 6:36 PM EDT Gender Identity Not on file Sexual Orientation Not on file documented as of this encounter Plan of Treatment Not on file documented as of this encounter Procedures Procedure Name Priority Date/Time Associated Diagnosis Comments US PELVIS W/ TRANSVAGINAL 10/07/2023 7:23 AM EST documented in this encounter Results * US PELVIS W/ TRANSVAGINAL (10/07/2023 7:23 AM EST) Anatomical Region Laterality Modality Other 10/07/2023 7:23 AM EST Narrative 10/07/2023 7:23 [place] [address] Ultrasound Report Signed Patient: PAIGE KEATING MR#: [id number] : 1975 Acct:[id number] Age/Sex: 48 / F ADM Date: 10/04/23 Loc: US Attending Dr: Aura Murillo D.O. Ordering Physician: Aura Murillo D.O. Date of Service: 10/04/23 Procedure(s): US pelvis w/ transvaginal Accession Number(s): [id number] cc: Aura Murillo D.O.; Varun Marinelli M.D. [facility] [place] [id number] Patient Name: PAIGE KEATING MRN: [id number] date: 1975 Sex: F Assigned Patient Location: US Current Patient Location: Accession/Order Number: [id number] Exam Date: 10/04/2023 09:07 Report Date: 10/07/2023 07:23 At the request of: AURA MURILLO Procedure: US pelvis w/ transvaginal EXAMINATION: US pelvis w/ transvaginal HISTORY: PELVIC PAIN IN FEMALE R10.2 COMPARISON: No relevant comparison available. FINDINGS: The uterus is surgically absent. The right ovary measures 3.0 x 1.9 x 2.2 cm. Normal color Doppler flow. Area of anechoic echogenicity measuring 1.5 cm, simple cyst favored. The left ovary is not visualized consistent with provided history of nephrectomy No free fluid US/US pelvis w/ transvaginal IMPRESSION: 1.5 cm right ovarian simple cyst Electronically authenticated by: ABIGAIL SHEEHAN Date: 10/07/2023 07:23 Dictated By: Abigail Sheehan M.D. Signed By: 10/07/23724 DD/ 2 TD/TT: Career Advisor: Procedure Note Radiology, Radiologist, - 10/07/2023 [facility] [place] [id number] Ultrasound Report Signed Patient: PAIGE KEATING NMR#: [id number] : 1975Acct:[id number] Age/Sex: 48 / FADM Date: 10/04/23 Loc: US Attending Dr: Aura Murillo D.O. Ordering Physician: Aura Murillo D.O. Date of Service: 10/04/23 Procedure(s): US pelvis w/ transvaginal Accession Number(s): [id number] cc: Aura Murillo D.O.; Varun Marinelli M.D. [place] [address] Patient Name: PAIGE KEATING MRN: [id number] date: 1975 Sex: F Assigned Patient Location: Current Patient Location: Accession/Order Number: [id number] Exam Date: 10/04/2023 09:07 Report Date: 10/07/2023 07:23 At the request of: AURA MURILLO Procedure: US pelvis w/ transvaginal EXAMINATION: US pelvis w/ transvaginal HISTORY: PELVIC PAIN IN FEMALE R10.2 COMPARISON: No relevant comparison available. FINDINGS: The uterus is surgically absent. The right ovary measures 3.0 x 1.9 x 2.2 cm. Normal color Doppler flow.Area of anechoic echogenicity measuring 1.5 cm, simple cyst favored. The left ovary is not visualized consistent with provided history of nephrectomy No free fluid US/US pelvis w/ transvaginal IMPRESSION: 1.5 cm right ovarian simple cyst Electronically authenticated by: ABIGAIL SHEEHAN Date: 10/07/2023 07:23 Dictated By: Abigail Sheehan M.D. Signed By:10/07/23724 DD/ 2 TD/TT: Career Advisor: Aura Murillo DO [facility] Final Result documented in this encounter Visit Diagnoses Not on filedocumented in this encounter Care Teams Flower Picker Relationship Specialty Start Date End Date Varun Marinelli MD PCP - General Family Medicine 06/26/23 Tiesha Hughes NP Nurse Practitioner Neurology 02/03/25 Shasha White DO [address] [place] [address] Referring Physician Neurology 02/03/25 documented as of this encounter
--- OUTSIDE RECORDS SUMMARY | 2025-08-13 11:42 | XMS_ITS | Encounter Summary ---
Author Organization [facility] Address [address] [facility] [place] [address] Care Team Providers Care Sharebroker Name Role Phone Varun Marinelli MD Primary Care Provider [phone] Tiesha Hughes BEEF CATTLE GRAZIER Unavailable [phone] Shasha White DO Unavailable [phone] Encounter Details Date Type Department Care Team (Late st Contact Info) Description 09/13/2024 Abstract NIDA HERNANDES [address] [facility] [id number] Delgado Murillo DO [address] [facility] [address] [place], [place] [id number] Social History Tobacco Use Types Packs/Day Years [...] drinks on one occasion? Never 10/20/2023 Comments Unknown Sex and Gender Information Value Date Recorded Sex Assigned at Not on file Legal Sex Female 6:36 PM EDT Gender Identity Not on file Sexual Orientation Not on file documented as of this encounter Plan of Treatment Not on file documented as of this encounter Visit Diagnoses Not on filedocumented in this encounter Care Teams Sharebroker Relationship Specialty Start Date End Date Varun Marinelli MD PCP - General Family Medicine 06/26/23 Tiesha Hughes NP Nurse Practitioner Neurology 02/03/25 Shasha White DO [address] [place] [address] Referring Physician Neurology 02/03/25 documented as of this encounter
--- OUTSIDE RECORDS SUMMARY | 2025-08-13 11:42 | XMS_ITS | Encounter Summary ---
Author Organization [facility] Address [address] [facility] [place] [address] Care Team Providers Care Bus Steward Name Role Phone Varun Marinelli MD Primary Care Provider [phone] Tiesha Hughes MATCHER OFFBEARER Unavailable [phone] Shasha White DO Unavailable [phone] Encounter Details Date Type Department Care Team (Late st Contact Info) Description 09/13/2024 Abstract NIDA HERNANDES [address] [facility] [place] [id number] Delgado Murillo DO [address] [facility] [address] [place], [place] [id number] Social History Tobacco Use Types Packs/Day Years [...] on filedocumented in this encounter Care Teams Bus Steward Relationship Specialty Start Date End Date Varun Marinelli MD PCP - General Family Medicine 06/26/23 Tiesha Hughes NP Nurse Practitioner Neurology 02/03/25 Shasha White DO [address] [place] [address] Referring Physician Neurology 02/03/25 documented as of this encounter
--- OUTSIDE RECORDS SUMMARY | 2025-08-13 11:42 | XMS_ITS | Encounter Summary ---
Author Organization [facility] Address [address] [place] [address] Care Team Providers Care Slitter And Rewinder Name Role Phone Varun Marinelli MD Primary Care Provider [phone] Tiesha Hughes CLOTHING SALES ASSISTANT Unavailable Shasha White DO Unavailable [phone] Encounter Details Date Type Department Care Team (Late st Contact Info) Description 04/08/2024 Clinisync Result Encounter [facility] External Department Unsolicited Jessica Sanchez PA [address] [place] [address] [place] [address] Social History Tobacco Use Types Packs/Day Years [...] Associated Diagnosis Comments US PELVIS W/ TRANSVAGINAL 04/08/2024 5:35 PM EDT documented in this encounter Results * US PELVIS W/ TRANSVAGINAL (04/08/2024 5:35 PM EDT) Anatomical Region Laterality Modality Other 04/08/2024 5:35 PM EDT Narrative 04/08/2024 5:38 [place] [address] Ultrasound Report Signed Patient: PAIGE KEATING MR#: [id number] : 1975 Acct:[id number] Age/Sex: 48 / F ADM Date: 04/07/24 Loc: US Attending Dr: Jessica Sanchez Ordering Physician: Jessica Sanchez Date of Service: 04/07/24 Procedure(s): US pelvis w/ transvaginal Accession Number(s): [id number] cc: Jessica Sanchez; Varun Marinelli M.D. [place] [id number] Patient Name: PAIGE KEATING MRN: [id number] date: 1975 Sex: F Assigned Patient Location: US Current Patient Location: LAB Accession/Order Number: [id number] Exam Date: 04/07/2024 18:10 Report Date: 04/08/2024 17:35 At the request of: JESSICA SANCHEZ Procedure: US pelvis w/ transvaginal EXAMINATION: US pelvis w/ transvaginal HISTORY: pelvic pain in female R10.2 COMPARISON: Ultrasound pelvis 10/04/2023 TECHNIQUE: Transabdominal and/or transvaginal sonographic examination was performed as indicated by examination type. FINDINGS: UTERUS: Hysterectomy. Incidental nabothian cysts within cervix. RIGHT OVARY: Contains 2 complex cysts, 3.4 cm and 3.5 cm in maximum diameter respectively. There is also a simple appearing 3.5 cm cyst. Duplex Doppler demonstrates normal waveform and flow; resistive index 0.5. Ovary size: 7.3 x 5.5 x 5.9 cm LEFT OVARY: Oophorectomy. No suspicious adnexal findings. CUL-DE-SAC: Unremarkable. No significant free fluid. BLADDER: Unremarkable. OTHER: None. US/US pelvis w/ transvaginal IMPRESSION: 1. Several prominent cysts within right ovary which may contribute to patient's symptoms. Given the complex appearance of 2 of the cysts, follow-up ultrasound evaluation 6 weeks is recommended to document regression. 2. Prior hysterectomy and left oophorectomy. Electronically authenticated by: AMAN MCKEON Date: 04/08/2024 17:35 Dictated By: Aman Mckeon M.D. Signed By: 04/08/248 DD/ 34 TD/TT: Contestant Coordinator: Procedure Note Radiology, Radiologist, MD - 04/08/2024 [place] [address] Ultrasound Report Signed Patient: PAIGE KEATING NMR#: [id number] : 1975Acct:[id number] Age/Sex: 48 / FADM Date: 04/07/24 Loc: US Attending Dr: Jessica Sanchez Ordering Physician: Jessica Sanchez Date of Service: 04/07/24 Procedure(s): US pelvis w/ transvaginal Accession Number(s): [id number] cc: Jessica Sanchez; Varun Marinelli M.D. [facility] [place] [id number] Patient Name: PAIGE KEATING MRN: [id number] date: 1975 Sex: F Assigned Patient Location: US Current Patient Location: LAB Accession/Order Number: [id number] Exam Date: 04/07/2024 18:10 Report Date: 04/08/2024 17:35 At the request of: JESSICA SANCHEZ Procedure: US pelvis w/ transvaginal EXAMINATION: US pelvis w/ transvaginal HISTORY: pelvic pain in female R10.2 COMPARISON: Ultrasound pelvis 10/04/2023 TECHNIQUE: Transabdominal and/or transvaginal sonographic examination was performed as indicated by examination type. FINDINGS: UTERUS: Hysterectomy. Incidental nabothian cysts within cervix. RIGHT OVARY: Contains 2 complex cysts, 3.4 cm and 3.5 cm in maximumdiameter respectively. There is also a simple appearing 3.5 cm cyst. Duplex Doppler demonstrates normal waveform and flow; resistive index 0.5. Ovary size:7.3 x 5.5 x 5.9 cm LEFT OVARY: Oophorectomy. No suspicious adnexal findings. CUL-DE-SAC: Unremarkable. No significant free fluid. BLADDER: Unremarkable. OTHER: None. US/US pelvis w/ transvaginal IMPRESSION: 1. Several prominent cysts within right ovary which may contribute to patient's symptoms. Given the complex appearance of 2 of the cysts, follow-upultrasound evaluation 6 weeks is recommended to document regression. 2. Prior hysterectomy and left oophorectomy. Electronically authenticated by: AMAN MCKEON Date: 04/08/2024 17:35 Dictated By: Aman Mckeon M.D. Signed By:04/08/248 DD/ 34 TD/TT: Contestant Coordinator: us Jessica JUAREZ [facility] Final Result documented in this encounter Visit Diagnoses Not on filedocumented in this encounter Care Teams Slitter And Rewinder Relationship Specialty Start Date End Date Varun Marinelli MD PCP - General Family Medicine 06/26/23 Tiesha Hughes NP Nurse Practitioner Neurology 02/03/25 Shasha White DO [address] [place] [address] Referring Physician Neurology 02/03/25 documented as of this encounter
--- OUTSIDE RECORDS SUMMARY | 2025-08-13 11:42 | XMS_ITS | Encounter Summary ---
Author Organization [facility] Address [address] [place] [address] Care Team Providers Care Associate Manager Affiliate Marketing Name Role Phone Varun Marinelli MD Primary Care Provider [phone] iTesha Hughes POST OFFICE MARKUP CLERK Unavailable [phone] Shasha White DO Unavailable [phone] Encounter Details Date Type Department Care Team (Late st Contact Info) Description 11/27/2023 Clinisync Result Encounter [facility] External Department Unsolicited Delgado Murillo DO [address] [facility] [place] [address] Social History Tobacco Use Types Packs/Day Years [...] Associated Diagnosis Comments MM TOMOSYNTHESIS SCREENING BI 11/27/2023 7:45 AM EST documented in this encounter Results * MM TOMOSYNTHESIS SCREENING BI (11/27/2023 7:45 AM EST) Anatomical Region Laterality Modality Other 11/27/2023 7:45 AM EST Narrative 11/27/2023 7:[place] [address] Mammography Report Signed Patient: PAIGE KEATING MR#: [id number] : 1975 Acct:[id number] Age/Sex: 48 / F ADM Date: 11/26/23 Loc: MAMMO Attending Dr: Delgado Murillo D.O. Ordering Physician: Delgado Murillo D.O. Results: Date of Service: 11/26/23 Follow Up: Procedure(s): MM tomosynthesis screening BI Accession Number(s): [id number] cc: Delgado Murillo D.O.; Varun Marinelli M.D. Patient Name: PAIGE KEATING MR#: [id number] : 1975 Exam Date: 11/26/2023 Ordering Doctor: DR Delgado Murillo . RADIOLOGY REPORT PROCEDURE: MM TOMOSYNTHESIS SCREENING BI COMPARISON: MG MAMM SCREEN 3D DEAN CAD, 09/12/2022. MG MAMM SCREEN 3D DEAN CAD, 07/26/2021. MG MAMM SCREEN DEAN W CAD, 12/20/2019. MG MAMM DEAN DIAG W CAD DIG, 05/26/2007. INDICATIONS: screening Calculator Name NCI Breast Cancer Risk Assessment Tool 5 Year Breast Cancer Risk 1.50% Lifetime Breast Cancer Risk 13.40% Personal Breast Cancer No Personal Ovarian Cancer No Treatments None Family Cancers Mother with lung cancer at age 68; Grandmother-maternal with breast cancer at age 64; Grandmother-paternal with ovarian cancer at age 76. LOCATION: [facility] BREAST COMPOSITION: Scattered areas fibroglandular density. FINDINGS: DIAGNOSTIC CATEGORY 2--BENIGN FINDING: RIGHT BREAST: No significant suspicious finding. No significant change has occurred. LEFT BREAST: No significant suspicious finding. Scattered benign-appearing nodules are present. No significant change has occurred. RECOMMENDATIONS: ROUTINE MAMMOGRAM AND CLINICAL EVALUATION IN 12 MONTHS. PLEASE NOTE: A NORMAL MAMMOGRAM DOES NOT EXCLUDE THE POSSIBILITY OF BREAST CANCER. A CLINICALLY SUSPICIOUS PALPABLE LUMP SHOULD BE BIOPSIED. Dictated by: Aman Mckeon M.D. on 11/27/2023 at 07:41 Approved by: Aman Mckeon M.D. on 11/27/2023 at 07:45 Dictated By: Aman Mckeon M.D. Signed By: 11/27/23 0746 DD/ TD/TT: Web Marketing Manager: Procedure Note Radiology, Radiologist, MD - 11/27/2023 [place] [address] Mammography Report Signed Patient: PAIGE KEATING NMR#: [id number] : 1975Acct:[id number] Age/Sex: 48 / FADM Date: 11/26/23 Loc: MAMMO Attending Dr: Delgado Murillo D.O. Ordering Physician: Delgado Murillo D.O.Results: Date of Service: 11/26/23Follow Up: Procedure(s): MM tomosynthesis screening BI Accession Number(s): [id number] cc: Delgado Murillo D.O.; Varun Marinelli M.D. Patient Name: PAIGE KEATING MR#: [id number] : 1975 Exam Date: 11/26/2023 Ordering Doctor: DR Delgado Murillo . RADIOLOGY REPORT PROCEDURE: MM TOMOSYNTHESIS SCREENING BI COMPARISON: MG MAMM SCREEN 3D DEAN CAD, 09/12/2022. MG MAMM SCREEN 3DBIL CAD, 07/26/2021. MG MAMM SCREEN DEAN W CAD, 12/20/2019. MG MAMM DEAN DIAG WCAD DIG, 05/26/2007. INDICATIONS: screening Calculator Name NCI Breast Cancer Risk Assessment Tool 5 Year Breast Cancer Risk 1.50% Lifetime Breast Cancer Risk 13.40% Personal Breast Cancer No Personal Ovarian Cancer No Treatments None Family Cancers Mother with lung cancer at age 68; Grandmother-maternal with breast cancer at age 64; Grandmother-paternal with ovarian cancer atage 76. LOCATION: [facility] BREAST COMPOSITION: Scattered areas fibroglandular density. FINDINGS: DIAGNOSTIC CATEGORY 2--BENIGN FINDING: RIGHT BREAST: No significant suspicious finding. No significant changehas occurred. LEFT BREAST: No significant suspicious finding. Scatteredbenign-appearing nodules are present. No significant change has occurred. RECOMMENDATIONS: ROUTINE MAMMOGRAM AND CLINICAL EVALUATION IN 12 MONTHS. PLEASE NOTE: A NORMAL MAMMOGRAM DOES NOT EXCLUDE THE POSSIBILITY OFBREAST CANCER. A CLINICALLY SUSPICIOUS PALPABLE LUMP SHOULD BE BIOPSIED. Dictated by: Aman Mckeon M.D. on 11/27/2023 at 07:41 Approved by: Aman Mckeon M.D. on 11/27/2023 at 07:45 Dictated By: Aman Mckeon M.D. Signed By:11/27/2346 DD/ 4 TD/TT: Web Marketing Manager: [facility] DO [facility] Final Result documented in this encounter Visit Diagnoses Not on filedocumented in this encounter Care Teams Associate Manager Affiliate Marketing Relationship Specialty Start Date End Date Varun Marinelli MD PCP - General Family Medicine 06/26/23 Tiesha Hughes NP Nurse Practitioner Neurology 02/03/25 Shasha White DO [address] [place] [address] Referring Physician Neurology 02/03/25 documented as of this encounter
--- OUTSIDE RECORDS SUMMARY | 2025-08-13 11:42 | XMS_ITS | Patient Health Record ---
Author Organization The [facility] in [place] Address [address] [place] [address] Care Team Providers Care Decision Science Analyst Name Role Phone Finesse Marinelli Primary Care Provider [phone] Allergies Allergen (clinical drug ingredient) Drug/Non Drug Allergy documented on EMR Reaction Allergy Type Onset Date Status nitrofurantoin, macrocrystals / nitrofurantoin, monohydrate Macrobid neck swelling Drug Allergy Active albuterol Albuterol seizure Drug Allergy Active Results Component Value Reference Range Notes CBC AUTO DIFF Reviewed date:01/17/2025 04:47:29 PM Interpretation: Performing Lab: Notes/Report: [facility] , White Blood Count 6.5 4.0-11.0 10 3/uL Red Blood Count 4.44 4.20-5.40 10 6/uL Hemoglobin 13.9 12.0-16.0 g/dL Hematocrit 41.2 36.0-48.0 % Mean Corpuscular Volume 92.8 81.0-99.0 fL Mean Corpuscular Hemoglobin 31.3 26.7-34.0 pg Mean Corpuscular HGB Conc 33.7 29.9-35.2 g/dL Red Cell Distribution Width 11.9 11.0-15.0 % Platelet Count 285 150-450 10 3/uL Mean Platelet Volume 10.8 9.5-13.5 fL Neutrophils Percent Auto 41.9 43.0-75.0 % Lymphocytes Percent Auto 50.0 20.5-60.0 % Monocytes Percent Auto 6.2 1.7-12.0 % Eosinophils Percent Auto 1.2 0.9-7.0 % Basophils Percent Auto 0.5 0.2-2.0 % Immature Granulocytes Pct Auto 0.2 0.0-0.5 % Neutrophils Absolute Auto 2.7 1.4-6.5 10 3/uL Lymphocytes Absolute Auto 3.3 1.2-3.8 10 3/uL Monocytes Absolute Auto 0.4 0.3-0.8 10 3/uL Eosinophils Absolute Auto 0.1 0.0-0.7 10 3/uL Basophils Absolute Auto 0.0 0.0-0.1 10 3/uL Immature Granulocytes Abs Auto 0.01 0.00-0.03 10 3/uL Performing Lab: see note ML - [facility] US renal bladder Reviewed date:09/14/2024 05:40:06 PM Interpretation: Performing Lab: Notes/Report: Source Facility: [place] [address] [place] [address] Ultrasound Report Signed Patient: PAIGE KEATING MR#: [id number] : 1975 Acct:[id number] Age/Sex: 49 / F ADM Date: 09/13/24 Loc: US Attending Dr: Sami Marinelli M.D. Ordering Physician: Sami Marinelli M.D. Date of Service: 09/13/24 Procedure(s): US renal bladder Accession Number(s): [id number] cc: Sami Marinelli M.D. [place] [id number] Patient Name: PAIGE KEATING MRN: [id number] date: 1975 Sex: F Assigned Patient Location: Current Patient Location: Accession/Order Number: [id number] Exam Date: 09/13/2024 16:40 Report Date: 09/14/2024 07:45 At the request of: SAMI MARINELLI Procedure: US renal bladder EXAMINATION: US renal bladder HISTORY: HEMATURIA R31.9 COMPARISON: No relevant comparison available. TECHNIQUE: Ultrasound examination was performed of the bladder. FINDINGS: Right Kidney: Normal in size, contour and echotexture. The cortex measures 1.4 cm. 1.7 x 1.8 x 2 cm area of anechoic echogenicity in the upper pole, simple cyst. No solid cortical mass, hydronephrosis or obstructing nephrolithiasis Height: 4.04 cm Length: 12.57 cm Width: 4.83 cm Left Kidney: Normal in size, contour and echotexture. The cortex measures 1.4 cm. No solid cortical mass, hydronephrosis or obstructing nephrolithiasis Height: 4.68 cm Length: 11.97 cm Width: 5.02 cm Urinary bladder is normal in appearance. The wall measures 2.3 mm. Prevoid volume 231 mL. Post void volume 7 mL Ureteral jets: Visualized bilaterally US/US renal bladder IMPRESSION: 2 cm right renal simple cyst Electronically authenticated by: ABIGAIL SHEEHAN Date: 09/14/2024 07:45 Dictated By: Abigail Sheehan M.D. Signed By: 09/14/2447 DD/ TD/TT: Customer Leader: [place] [address] Ultrasound Report Signed Patient: MIHAELA KEATING MR#: [id number] : 1975 Acct:[id number] Age/Sex: 49 / F ADM Date: 09/13/24 Loc: US Attending Dr: Miki Marinelli M.D. Ordering Physician: Sami Marinelli M.D. Date of Service: 09/13/24 Procedure(s): US kirt al bladder Accession Number(s): [id number] cc: Sami Marinelli M.D. [place] [address] Patient Name: PAIGE KEATING MRN: [id number] date: 1975 Sex: F Assigned Patient Location: US Current Patient Location: Accession/Order Numb er: [id number] Exam Date: 16:40 Report Date: 09/14/2024 07:45 At the request of: SAMI MARINELLI Procedure: US renal bladder EXAMINATION: US chana l bladder HISTORY: HEMATURIA R31.9 COMPARISON: No relev ant comparison available. TECHNIQUE: Ultrasoun d examination was performed of the bladder. FINDINGS: Right Kidney: Normal in size, contour and echotexture. The cortex measures 1.4 cm. 1.7 x 1.8 x 2 cm area of anechoic echogenicity in the upper pole, simple cyst. No solid corti marta mass, hydronephrosis or obstructing nephrolithiasis Height: 4.04 cm Rossy th: 12.57 cm Width: 4.83 cm Left Kidney: Normal in size, contour and echotexture. The cortex measures 1.4 cm. No solid cortica l mass, hydronephrosis or obstructing nephrolithiasis Height: 4.68 cm Rossy th: 11.97 cm Width: 5.02 cm Urinary bladder is normal in appearance. The wall measures 2.3 mm. Prevoid volume 231 mL. Post void volume 7 mL Ureteral jets: Visualized bilaterally US/US renal bladder IMPRESSION: 2 cm right renal sim ple cyst Electronically authenticated by: ABIGAIL SHEEHAN Date: 09/14/2024 07:45 Dictated By: Armando Sheehan M.D. Signed By: 09/14/24 0747 DD/ 0745 TD/TT: Customer Leader: CBC AUTO DIFF Reviewed date:10/07/2024 07:25:15 PM Interpretation: Performing Lab: Notes/Report: [facility] , White Blood Count 8.7 4.0-11.0 10 3/uL Red Blood Count 3.96 4.20-5.40 10 6/uL Hemoglobin 12.1 12.0-16.0 g/dL Hematocrit 36.4 36.0-48.0 % Mean Corpuscular Volume 91.9 81.0-99.0 fL Mean Corpuscular Hemoglobin 30.6 26.7-34.0 pg Mean Corpuscular HGB Conc 33.2 29.9-35.2 g/dL Red Cell Distribution Width 12.4 11.0-15.0 % Platelet Count 270 150-450 10 3/uL Mean Platelet Volume 10.5 9.5-13.5 fL Neutrophils Percent Auto 52.8 43.0-75.0 % Lymphocytes Percent Auto 36.9 20.5-60.0 % Monocytes Percent Auto 6.2 1.7-12.0 % Eosinophils Percent Auto 3.3 0.9-7.0 % Basophils Percent Auto 0.5 0.2-2.0 % Immature Granulocytes Pct Auto 0.3 0.0-0.5 % Neutrophils Absolute Auto 4.6 1.4-6.5 10 3/uL Lymphocytes Absolute Auto 3.2 1.2-3.8 10 3/uL Monocytes Absolute Auto 0.5 0.3-0.8 10 3/uL Eosinophils Absolute Auto 0.3 0.0-0.7 10 3/uL Basophils Absolute Auto 0.0 0.0-0.1 10 3/uL Immature Granulocytes Abs Auto 0.03 0.00-0.03 10 3/uL Performing Lab: see note ML - [facility] FREE T3 Reviewed date:10/07/2024 07:25:15 PM Interpretation: Performing Lab: Notes/Report: [facility] , Free T3 3.36 2.18-3.98 pg/mL Performing Lab: see note ML - [facility] PROF 14(COMP METB) Reviewed date:10/07/2024 07:25:15 PM Interpretation: Performing Lab: Notes/Report: [facility] , Sodium 142 136-145 mmol/L Potassium 3.9 3.5-5.1 mmol/L Chloride 106 98-107 mmol/L Carbon Dioxide 28.1 21.0-32.0 mmol/L Anion Gap 11.8 Glucose 94 74-106 mg/dL Blood Urea Nitrogen 10.0 7.0-18.0 mg/dL Creatinine 0.91 0.55-1.02 mg/dL Estimated GFR ( Blank >60 >=60 mL/min/1.73m 2 Estimated GFR (Non- Hamida >60 >=60 mL/min/1.73m 2 BUN Creatinine Ratio 11.0 Calcium 8.5 8.5-10.1 mg/dL Bilirubin Total 1.0 0.2-1.0 mg/dL Aspartate Amino Transferase 44 15-37 U/L Alanine Aminotransferase 89 14-59 U/L Alkaline Phosphatase 79 46-116 U/L Total Protein 6.2 6.4-8.2 g/dL Albumin Level 3.3 3.4-5.0 g/dL Globulin 2.9 Albumin Globulin Ratio 1.1 Performing Lab: see note ML - [facility] LB T4 Reviewed date:10/07/2024 07:25:16 PM Interpretation: Performing Lab: Notes/Report: [facility] , T4 Thyroxine 10.40 4.80-13.90 ug/dL Performing Lab: see note - [facility] LB TSH Reviewed date:10/07/2024 07:25:16 PM Interpretation: Performing Lab: Notes/Report: [facility] , Thyroid Stimulating Hormone 2.291 0.358-3.740 uIU/mL Performing Lab: see note - [facility] LB Occult Blood* Reviewed date:10/09/2024 03:43:12 PM Interpretation: Performing Lab: Notes/Report: [facility] , Occult Blood Positive Performing Lab: see note - [facility] LB Acute Hepatitis Reviewed date:10/15/2024 06:25:47 AM Interpretation: Performing Lab: Notes/Report: [facility] , Hep A Ab, IgM Negative Negative current HAV infection. A negative anti-HAV IgM result suggests no recent or HBsAg Screen Negative Negative Hep B Core Ab, IgM Negative Negative HCV Ab Non Reactive Non Reactive Interpretation: Comment . Board Worker: Bowen Mcleod PhD, Phone: [phone] individual), or other evidence exists to indicate HCV Performed at: [facility] Not infected with HCV unless early or acute infection is infection. suspected (which may be delayed in an immunocompromised [address] [place] [phone] Performing Lab: see note - [facility] LB US right upper quadrant Reviewed date:10/15/2024 06:25:47 AM Interpretation: Performing Lab: Notes/Report: Source Facility: [place] [address] [place] [address] Ultrasound Report Signed Patient: PAIGE KEATING MR#: [id number] : 1975 Acct:[id number] Age/Sex: 49 / F ADM Date: 10/13/24 Loc: US Attending Dr: Sami Marinelli M.D. Ordering Physician: Sami Marinelli M.D. Date of Service: 10/13/24 Procedure(s): US right upper quadrant Accession Number(s): [id number] cc: Sami Marinelli M.D. The [place] [id number] Patient Name: PAIGE KEATING MRN: [id number] date: 1975 Sex: F Assigned Patient Location: US Current Patient Location: Accession/Order Number: [id number] Exam Date: 10/13/2024 07:02 Report Date: 10/14/2024 04:43 At the request of: SAMI MARINELLI Procedure: US right upper quadrant EXAMINATION: US right upper quadrant HISTORY: Elevated liver enzymes COMPARISON: No relevant comparison available. TECHNIQUE: Transabdominal evaluation of the right upper quadrant. FINDINGS: LIVER: Increased echogenicity suggestive of fatty infiltration.. Color Doppler demonstrates patent hepatic veins. PORTAL VEIN: Duplex Doppler demonstrates normal hepatopetal flow pattern with flow velocity averaging 28 cm/s. GALLBLADDER: Cholecystectomy. Negative sonographic Mendez's sign. BILIARY: No abnormal dilation or stones. Common bile duct diameter is within normal limits. PANCREAS: No visible mass, abnormal atrophy, or duct dilation. KIDNEY: Benign-appearing 1.6 cm cyst projecting from superior pole. No appreciable stones, mass, or hydronephrosis. Size: 12.6 x 4.6 x 4.7 cm US/US right upper quadrant IMPRESSION: 1. Fatty infiltration of liver. 2. Cholecystectomy. 3. Benign-appearing right renal cyst. Electronically authenticated by: AMAN MCKEON Date: 10/14/2024 04:43 Dictated By: Aman Mckeon M.D. Signed By: 10/14/24444 DD/ 2 TD/TT: Customer Leader: [place] [address] Ultrasound Report Signed Patient: MIHAELA KEATING MR#: [id number] : 1975 Acct:[id number] Age/Sex: 49 / F ADM Date: 10/13/24 Loc: US Attending Dr: Miki Marinelli M.D. Ordering Physician: Sami Marinelli M.D. Date of Service: 10/13/24 Procedure(s): US rig ht upper quadrant Accession Number(s): [id number] cc: Sami Marinelli M.D. [facility] [place] [address] Patient Name: PAIGE KEATING MRN: [id number] date: 1975 Sex: F Assigned Patient Location: US Current Patient Location: Accession/Order Numb er: [id number] Exam Date: 07:02 Report Date: 10/14/2024 04:43 At the request of: SAMI MARINELLI Procedure: US right upper quadrant EXAMINATION: US righ t upper quadrant HISTORY: Elevated li femi enzymes COMPARISON: No relev ant comparison available. TECHNIQUE: Transabdominal evaluation of the right upper quadrant. FINDINGS: LIVER: Increased echogenicity suggestive of fatty infiltration.. Color Doppler demonstrates patent hepatic veins. PORTAL VEIN: Duplex Doppler demonstrates normal hepatopetal flow pattern with flow velocity averag ing 28 cm/s. GALLBLADDER: Cholecystectomy. Negative sonographic Mendez's sign. BILIARY: No abnormal dilation or stones. Common bile duct diameter is within normal limits. PANCREAS: No visible mass, abnormal atrophy, or duct dilation. KIDNEY: Benign-appearing 1.6 cm cyst projecting from superior pole. No appreciable stones, mass, or hydronephrosis. Size: 12.6 x 4.6 x 4.7 cm US/US right upper quadrant IMPRESSION: 1. Fatty infiltratio n of liver. 2. Cholecystectomy. 3. Benign-appearing right renal cyst. Electronically authenticated by: AMAN MCKEON Date: 10/14/2024 04:43 Dictated By: Aman Mckeon M.D. Signed By: 10/14/24444 DD/ 2 TD/TT: Customer Leader: LAB TESTING Reviewed date:11/10/2024 07:25:39 PM Interpretation: Performing Lab: Notes/Report: [id number] SLE PROFILE A [facility] , Miscellaneous Test COMMENT . Positive >9 Reference Range: 0.0-0.9 Reference Range: 0.0-0.9 Spann Antibodies <0.2 AI CB Sjogren's Anti-SS-A <0.2 AI CB Negative <5 Reference Range: 0.0-0.9 Board Worker: Bowen Mcleod PhD, Phone: [phone] [address] [place], [place] [phone] Equivocal 5 - 9 SOFTWARE TECHNICIAN Antibodies 0.2 AI CB Antichromatin Antibodies <0.2 AI CB Reference Range: 0.0-0.9 Reference Range: 0.0-0.9 Anti-DNA (DS) Ab Qn <1 IU/mL CB Reference Range: 0-9 Test Ordered: [id number] Systemic Lupus Profile A Performed at: [facility] Rheumatoid Factor (RF) <10.0 IU/mL CB Sjogren's Anti-SS-B <0.2 AI CB Reference Range: <14.0 Performing Lab: see note - [facility] LB Antistreptolysin O Ab Reviewed date:01/18/2025 09:16:06 PM Interpretation: Performing Lab: Notes/Report: [facility] , Antistreptolysin O Ab 56.3 0.0-200.0 IU/mL Board Worker: Bowen Mcleod PhD, Phone: [phone] [address] [place], [place] [phone] Performed at: [facility] Performing Lab: see note - [facility] LB RHEUMATOID FACTOR Reviewed date:01/18/2025 09:16:06 PM Interpretation: Performing Lab: Notes/Report: [facility] , Rheumatoid Factor (RF) <10.0 <14.0 IU/mL Performing Lab: see note - [facility] LB ROSS by IFA Reviewed date:01/18/2025 09:15:56 PM Interpretation: Performing Lab: Notes/Report: [facility] , Antinuclear Antibodies, IFA Positive . Borderline 1:80 Negative <1:80 Positive >1:80 Homogeneous Pattern TNP . Nucleolar Pattern TNP . Speckled Pattern 1:160 . ICAP nomenc lature: AC-2,4,5,29 Centromere Pattern TNP . Spindle Apparatus Pattern TNP . Nuclear Membrane Pattern TNP . Midbody Pattern TNP . Nuclear Dot Pattern TNP . PCNA Pattern TNP . Centriole Pattern TNP . Note: Comment . Nuclear Dot Primary Biliary Cholangitis Erythematosus-Scleroder ma-Autoimmune Board Worker: Bowen Mcleod PhD, Phone: [phone] Pattern Potential Disease Association Undifferentiated Connective Tissue Disease Syndrome, Raynaud phenomenon, Pulmonary Mixed Connective Tissue Disease, Erythematosus, Subacute Cutaneous Lupus, Arthritis Nuclear Primary Biliary Cholangitis, Autoimmune Linear Scleroderma, Antiphospholipid Syndrome Homogeneous Systemic Lupus Erythematosus, Drug Induced Autoimmune Rheumatic Disease, Raynaud's Phenomenon, Primary Biliary Myositis Overlap Syndrome, Systemic Lupus [address] [place], [place] [phone] Rheumatic Disease, Cancer Speckled Sjogren Syndrome, Systemic Lupus Myositis Overlap Syndrome, Sjogren Rheumatic Disease, Autoimmune Cytopenias, Autoimmune hepatitis, Juvenile Idiopathic Cholangitis Myositis Overlap Syndrome, Systemic Centromere Scleroderma-CREST, Limited Cutaneous SSc, Scleroderma-diffuse, Scleroderma-Autoimmune Performed at: [facility] Systemic Lupus Erythematosus, Chronic Lupus, Congenital Heart Block, Nucleolar Systemic Sclerosis, Scleroderma-Autoimmune Arterial Hypertension, Systemic Autoimmune Membrane Hepatitis/Liver disease, Systemic Autoimmune Performing Lab: see note LC - [facility] LB IGP,Aptima HPV,Age Gdln Reviewed date:12/01/2024 03:16:58 PM Interpretation: Performing Lab: Notes/Report: SPATULA-ALONE VAGINA [facility] , Age Gdln ACOG Testing Note . L-Low Normal,H-High Normal,LL-Alert Low,HH-Alert High FLAG LEGEND: Age Algo ACOG Mya... 30-65 01 Clinician Provided Cytology Information Performed at: 01 =G [facility] Kai Wang MD, TESTS RESULT FLAG UNITS REF RANGE LAB [address] [place] [address] <-Panic Low,>-Panic High,A-Abnormal,AA-Crit ical Abnormal No. of containers..01 ThinPrep Vial Source.............Vagi na IGP, Aptima HPV, rfx 16/18,45 Note . DIAGNOSIS: 02 FUNGAL ORGANISMS MORPHOLOGICALLY CONSISTENT WITH VIVIANE SPECIES ARE PRESENT. the use of an image guided system. . 02 occur. detection of premalignant and malignant conditions of the 02 KWCYT [facility] [address] [place] [phone] FLAG LEGEND: Criteria not met, HPV Genotype not performed. The Pap smear is a screening test designed to aid in the This liquid based ThinPrep(R) pap test was screened with Satisfactory for evaluation. Endocervical and/or squamous metaplastic cells (endocervical component) are present. [address] [place] [address] <-Panic Low,>-Panic High,A-Abnormal,AA-Crit ical Abnormal cancer. Both false-positive and false-negative reports do Specimen adequacy: 02 Britta Wang MD, Performed by: 02 should not be used as the sole means of detecting cervical uterine cervix. It is not a diagnostic procedure and Steve Saenz, Residence Leasing Agent ([facility]) HPV Genotype Reflex Note 02 NEGATIVE FOR INTRAEPITHELIAL LESION OR MALIGNANCY. Note: Note 03 Test Methodology: Note 03 TESTS RESULT FLAG UNITS REF RANGE LAB L-Low Normal,H-High Normal,LL-Alert Low,HH-Alert High 03 [facility], Performed at: HPV Aptima Negative Negative Board Worker: Kristian Waterman MD, Phone: [phone] without differentiation. Performed at: =G - [facility] This nucleic acid amplification test detects fourteen high- risk HPV types (16,18,31,33,35,39,45,5 1,52,56,58,59,66,68) Performed at: [facility] - [facility] [address] [place], [place] [id number] [address] [place] [phone] Board Worker: Britta Wang MD, Phone: [phone] Performing Lab: see note - [facility] LB MR cervical spine wo con Reviewed date:11/15/2024 02:07:00 PM Interpretation: Performing Lab: Notes/Report: Source Facility: [place] [address] Magnetic Resonance Report Signed Patient: PAIGE KEATING MR#: [id number] : 1975 Acct:[id number] Age/Sex: 49 / F ADM Date: 11/12/24 Loc: MRI Attending Dr: Kyle Streeter NP Ordering Physician: Kyle Streeter NP Date of Service: 11/12/24 Procedure(s): MR cervical spine wo con Accession Number(s): [id number] cc: Kyle Streeter NP; Sami Marinelli M.D. [place] [address] Patient Name: PAIGE KEATING MRN: [id number] date: 1975 Sex: F Assigned Patient Location: MRI Current Patient Location: Accession/Order Number: [id number] Exam Date: 11/12/2024 13:48 Report Date: 11/15/2024 07:26 At the request of: KYLE STREETER Procedure: MR cervical spine wo con MR cervical spine wo con, 11/12/2024 1:48 PM EST INDICATION: Cervical DDD, Cervical spondylosis COMPARISON: Prior x-ray of cervical spine dated 08/12/2024 TECHNIQUE: Multiplanar, multisequential MRI images of cervical spine were obtained without contrast. FINDINGS: There is normal physiologic cervical lordosis. The vertebral heights are relatively preserved. There is signal abnormality on T1 and T2-weighted images in the vertebral bodies of visualized spine that may suggest bone marrow reconversion in appropriate clinical setting. The cervicomedullary junction is unremarkable. No definite signal abnormality within the spinal cord is noted. There are mild disc osteophyte complex associated with uncovertebral joint arthrosis from C3 to T1 contributing to neuroforaminal and canal stenosis. At the level of C2-C3, there is no neuroforaminal narrowing or canal stenosis. At the level of C3-C4, there is mild right neuroforaminal narrowing and no canal stenosis. At the level of C4-C5, there is mild bilateral neuroforaminal narrowing and no canal stenosis. At the level of C5-C6, there is mild to moderate bilateral neuroforaminal narrowing and mild canal stenosis. At the level of C6-C7, there is mild left neuroforaminal narrowing and mild canal stenosis. Level of C7-T1 is unremarkable. No definite muscular or ligamentous injury is noted. MR/MR cervical spine wo con IMPRESSION: Mild degenerative changes of the cervical spine in particular at C5-C6 and C6-C7. Electronically authenticated by: PAULINO BLOUNT Date: 11/15/2024 07:26 Dictated By: Paulino Blount M.D. Signed By: 11/15/24728 DD/ 5 TD/TT: Customer Leader: [place] [address] Magnetic Resonance Report Signed Patient: MIHAELA KEATING MR#: [id number] : 1975 Acct:[id number] Age/Sex: 49 / F ADM Date: 11/12/24 Loc: MRI Attending Dr: Kyle Streeter NP Ordering Physician: Kyle Streeter NP Date of Service: 11/12/24 Procedure(s): MR cervical spine wo con Accession Number(s): [id number] cc: Kyle Streeter NP; Sami Marinelli M.D. [place] [phone] Patient Name: PAIGE KEATING MRN: [id number] date: 1975 Sex: F Assigned Patient Location: MRI Current Patient Location: Accession/Order Numb er: [id number] Exam Date: 13:48 Report Date: 11/15/2024 07:26 At the request of: KYLE STREETER Procedure: MR cervic al spine wo con MR cervical spine wo con, 11/12/2024 1:48 PM EST INDICATION: Cervical DDD, Cervical spondylosis COMPARISON: Prior x- ray of cervical spine dated 08/12/2024 TECHNIQUE: Multiplan ar, multisequential MRI images of cervical spine were obtained without contrast. FINDINGS: There is normal physiologic cervical lordosis. The vertebral heights are relatively preserved. There is signal abnormality on T1 and T2-weighted images in the vertebral bodies of visualized spine that may suggest bone marrow reconversion in appropriate clinical setting. The cervicomedullary junction is unremarkable. No definite signal abnormality within the spinal cord is noted. There are mild disc osteophyte complex associated with uncovertebral joint arthrosis from C3 to T1 contributing to neuroforaminal and canal stenosis. At the level of C2-C 3, there is no neuroforaminal narrowing or canal stenosis. At the level of C3-C 4, there is mild right neuroforaminal narrowing and no canal stenosis. At the level of C4-C 5, there is mild bilateral neuroforaminal narrowing and no canal stenosis. At the level of C5-C 6, there is mild to moderate bilateral neuroforaminal narrowing and mild canal stenosis. At the level of C6-C 7, there is mild left neuroforaminal narrowing and mild canal stenosis. Level of C7-T1 is unremarkable. No definite muscular or ligamentous injury is noted. MR/MR cervical spine wo con IMPRESSION: Mild degenerative changes of the cervical spine in particular at C5-C6 and C6-C7. Electronically authenticated by: PAULINO BLOUNT Date: 11/15/2024 07:26 Dictated By: Paulino Blount M.D. Signed By: 11/15/24 0729 DD/ 0726 TD/TT: Customer Leader: LAB TESTING Reviewed date:11/10/2024 07:25:39 PM Interpretation: Performing Lab: Notes/Report: [id number] SMOOTH MUSCLE ANTIBODY [facility] , Miscellaneous Test COMMENT . Actin Antibodies are found in 52-85% of patients with Performed at: - [facility] [place] in 22% of patients with primary biliary cirrhosis. Board Worker: Bowen Mcleod PhD, Phone: [phone] Actin (Smooth Muscle) Antibody 5 Units CB Weak positive 20 - 30 Negative 0 - 19 Test Ordered: [id number] Actin (Smooth Muscle) Antibody Moderate to strong positive >30 Reference Range: 0-[address] [place] [phone] autoimmune hepatitis or chronic active hepatitis and Performing Lab: see note [facility] LB LAB TESTING Reviewed date:11/10/2024 07:25:39 PM Interpretation: Performing Lab: Notes/Report: [id number] MITOCHONDRIAL ANTIBODY [facility] , Miscellaneous Test COMMENT . Mitochondrial (M2) Antibodies are found in 90-96% of Negative 0.0 - 20.0 Performed at: [facility] patients with primary biliary cirrhosis. Test Ordered: [id number] Mitochondrial (M2) Antibody Board Worker: Bowen Mcleod PhD, Phone: [phone] [address] [place] [phone] Reference Range: 0.0-20.0 Positive >24.9 Mitochondrial (M2) Antibody <20.0 Units CB Equivocal 20.1 - 24.9 Performing Lab: see note [facility] LAB TESTING Reviewed date:11/10/2024 07:25:39 PM Interpretation: Performing Lab: Notes/Report: [id number] SLE PROFILE B [facility] , Miscellaneous Test COMMENT . ROSS Direct Negative CB Reference Range: 0-9 Anti-DNA (DS) Ab Qn <1 IU/mL CB Reference Range: 0.0-0.[address] [place] [address] [phone] Antichromatin Antibodies <0.2 AI CB Positive >9 Reference Range: 82-167 Complement C3, Serum 144 mg/dL CB Reference Range: 12-38 Equivocal 5 - 9 Negative <5 Board Worker: Bowen Mcleod PhD, Phone: [phone] Complement C4, Serum 25 mg/dL CB Test Ordered: [id number] Systemic Lupus Profile B Reference Range: Negative Performed at: [facility] Performing Lab: see note [facility] t-Transglutaminase (tTG) IgA Reviewed date:11/10/2024 07:25:39 PM Interpretation: Performing Lab: [facility]Report: [facility] t-Transglutaminase (tTG) IgA <2 0-3 U/mL Weak Positive 4 - [address] [place] [address] [phone] Performed at: [facility] specificity for gluten sensitive enteropathy. as the endomysial antigen. Studies have demonstr- ated that endomysial IgA antibodies have over 99% Tissue Transglutaminase (tTG) has been identified Positive >10 Negative 0 - 3 Board Worker: Bowen Mcleod PhD, Phone: [phone] Performing Lab: see note [facility] Immunoglobulin G, Qn, Serum Reviewed date:11/10/2024 07:25:39 PM Interpretation: Performing Lab: Notes/Report: [facility] , Immunoglobulin G, Qn 226 127-9712 mg/dL Performing Lab: see note [facility] LB Immunoglobulin A, Qn, Serum Reviewed date:11/10/2024 07:25:39 PM Interpretation: Performing Lab: Notes/Report: [facility] , Immunoglobulin A, Qn 187 87-352 mg/dL Board Worker: Bowen Mcleod PhD, Phone: [phone] Performed at: [address] [id number] Performing Lab: see note [facility] LB Antistreptolysin O Ab Reviewed date:10/17/2024 01:38:38 PM Interpretation: Performing Lab: Notes/Report: [facility] , Antistreptolysin O Ab 52.6 0.0-200.0 IU/mL Performed at: [facility] Board Worker: Bowen Mcleod PhD, Phone: [phone] [address] [place] [address] [phone] Performing Lab: see note [facility] Testosterone Reviewed date:10/17/2024 01:38:38 PM Interpretation: Performing Lab: Notes/Report: [facility] , Testosterone <3 4-50 ng/dL Performed at: [address] [id number] Board Worker: Bowen Mcleod PhD, Phone: [phone] Performing Lab: see note [facility] LB URIC ACID SERUM Reviewed date:10/13/2024 07:34:20 PM Interpretation: Performing Lab: Notes/Report: [facility] , Uric Acid 6.4 2.6-6.0 mg/dL Performing Lab: see note - [facility] LB RHEUMATOID FACTOR Reviewed date:10/17/2024 01:38:38 PM Interpretation: Performing Lab: Notes/Report: [facility] , Rheumatoid Factor (RF) <10.0 <14.0 IU/mL Performing Lab: see note LC - [facility] LB PROF 14(COMP METB) Reviewed date:10/13/2024 07:34:20 PM Interpretation: Performing Lab: Notes/Report: [facility] , Sodium 140 136-145 mmol/L Potassium 3.7 3.5-5.1 mmol/L Chloride 101 98-107 mmol/L Carbon Dioxide 25.8 21.0-32.0 mmol/L Anion Gap 16.9 Glucose 89 74-106 mg/dL Blood Urea Nitrogen 14.0 7.0-18.0 mg/dL Creatinine 1.02 0.55-1.02 mg/dL Estimated GFR ( Blank >60 >=60 mL/min/1.73m 2 Estimated GFR (Non- Hamida 58 >=60 mL/min/1.73m 2 BUN Creatinine Ratio 13.7 Calcium 9.3 8.5-10.1 mg/dL Bilirubin Total 1.5 0.2-1.0 mg/dL Aspartate Amino Transferase 17 15-37 U/L Alanine Aminotransferase 41 14-59 U/L Alkaline Phosphatase 63 46-116 U/L Total Protein 7.3 6.4-8.2 g/dL Albumin Level 3.9 3.4-5.0 g/dL Globulin 3.4 Albumin Globulin Ratio 1.1 Performing Lab: see note - [facility] LB CRP Reviewed date:10/13/2024 07:34:20 PM Interpretation: Performing Lab: Notes/Report: [facility] , C Reactive Protein <0.50 <=0.50 mg/dL Performing Lab: see note - [facility] LB ROSS by IFA Reviewed date:10/17/2024 01:38:38 PM Interpretation: Performing Lab: Notes/Report: [facility] , Antinuclear Antibodies, IFA Positive . Borderline 1:80 Negative <1:80 Positive >1:80 Homogeneous Pattern 1:80 . ICAP nom enclature: AC-1 Nucleolar Pattern TNP . Speckled Pattern TNP . Centromere Pattern TNP . Spindle Apparatus Pattern TNP . Nuclear Membrane Pattern TNP . Midbody Pattern TNP . Nuclear Dot Pattern TNP . PCNA Pattern TNP . Centriole Pattern TNP . Note: Comment . Scleroderma-diffuse, Scleroderma-Autoimmune Undifferentiated Connective Tissue Disease Mixed Connective Tissue Disease, Pattern Potential Disease Association Raynaud's Phenomenon, Primary Biliary Membrane Hepatitis/Liver disease, Systemic Autoimmune Nuclear Primary Biliary Cholangitis, Autoimmune Centromere Scleroderma-CREST, Limited Cutaneous SSc, Performed at: [facility] Myositis Overlap Syndrome, Sjogren Autoimmune hepatitis, Juvenile Idiopathic Nucleolar Systemic Sclerosis, Scleroderma-Autoimmune Rheumatic Disease, Autoimmune Cytopenias, Board Worker: Bowen Mcleod PhD, Phone: [phone] Lupus, Congenital Heart Block, Myositis Overlap Syndrome, Systemic Lupus Erythematosus-Scleroder ma-Autoimmune Arthritis Erythematosus, Subacute Cutaneous Lupus, Arterial Hypertension, Systemic Autoimmune Cholangitis Myositis Overlap Syndrome, Systemic Systemic Lupus Erythematosus, Chronic Autoimmune Rheumatic Disease, Linear Scleroderma, Antiphospholipid Syndrome [address] [place] [address] [phone] Syndrome, Raynaud phenomenon, Pulmonary Speckled Sjogren Syndrome, Systemic Lupus Homogeneous Systemic Lupus Erythematosus, Drug Induced Nuclear Dot Primary Biliary Cholangitis Rheumatic Disease, Cancer Performing Lab: see note [facility] FSH Reviewed date:10/09/2024 03:43:12 PM Interpretation: Performing Lab: Notes/Report: [facility] , FSH 98.5 . mIU/mL Follicular phase 3.5 - 12.5 Performed at: [facility] Luteal phase 1.7 - 7.[address] [place] [address] [phone] Board Worker: Bowen Mcleod PhD, Phone: [phone] Postmenopausal 25.8 - 134.8 Ovulation phase 4.7 - 21.5 Adult Female Range Performing Lab: see note [facility] LB Testosterone Reviewed date:10/09/2024 03:43:12 PM Interpretation: Performing Lab: Notes/Report: [facility] , Testosterone <3 4-50 ng/dL Performing Lab: see note [facility] INSULIN Reviewed date:10/09/2024 03:43:12 PM Interpretation: Performing Lab: Notes/Report: [facility] , Insulin 16.1 2.6-24.9 uIU/mL Board Worker: Bowen Mcleod PhD, Phone: [phone] [address] [place] [address] [phone] Performed at: [facility] Performing Lab: see note [facility] LB GLYCOHEMOGLOBIN A1C Reviewed date:10/07/2024 07:25:15 PM Interpretation: Performing Lab: Notes/Report: [facility] , Glycohemoglobin A1C 6.1 4.5-6.2 % > 7.0 ACTION SUGGESTED ADA THERAPEUTIC TARGET < 7.0 ADA RECOMMENDED LIMIT 4.0 - 6.0 Estimated Average Glucose 128 Performing Lab: see note ML - [facility] LB US pelvis w/ transvaginal Reviewed date:09/14/2024 05:40:06 PM Interpretation: Performing Lab: Notes/Report: Source Facility: [facility]-[address] [place] [address] [place] [address] Ultrasound Report Signed Patient: PAIGE KEATING MR#: [id number] : 1975 Acct:[id number] Age/Sex: 49 / F ADM Date: 09/13/24 Loc: US Attending Dr: Sami Marinelli M.D. Ordering Physician: Sami Marinelli M.D. Date of Service: 09/13/24 Procedure(s): US pelvis w/ transvaginal Accession Number(s): [id number] cc: Sami Marinelli M.D. [place] [address] Patient Name: PAIGE KEATING MRN: [id number] date: 1975 Sex: F Assigned Patient Location: US Current Patient Location: US Accession/Order Number: [id number] Exam Date: 09/13/2024 16:40 Report Date: 09/14/2024 14:08 At the request of: SAMI MARINELLI Procedure: US pelvis w/ transvaginal EXAMINATION: US pelvis w/ transvaginal HISTORY: HEMATURIA R31.9 COMPARISON: 04/07/2024 FINDINGS: Transabdominal and transvaginal images The uterus is surgically absent. Areas of anechoic echogenicity in the cervix likely nabothian cysts The right ovary measures 2.7 x 1.8 x 2.4 cm. Normal color Doppler flow. Area of hypoechogenicity measuring 1.3 cm, complex versus functional cyst. The left ovary is surgically absent US/US pelvis w/ transvaginal IMPRESSION: 1.3 cm right ovarian cyst Electronically authenticated by: ABIGAIL SHEEHAN Date: 09/14/2024 14:08 Dictated By: Abigail Sheehan M.D. Signed By: 09/14/24 1419 DD/ 1401 TD/TT: Customer Leader: [place] [address] Ultrasound Report Signed Patient: MIHAELA KEATING MR#: [id number] : 1975 Acct:[id number] Age/Sex: 49 / F ADM Date: 09/13/24 Loc: US Attending Dr: Miki Marinelli M.D. Ordering Physician: Sami Marinelli M.D. Date of Service: 09/13/24 Procedure(s): US pel vis w/ transvaginal Accession Number(s): [id number] cc: Sami Marinelli M.D. The [place] [id number] Patient Name: PAIGE KEATING MRN: [id number] date: 1975 Sex: F Assigned Patient Location: US Current Patient Location: US Accession/Order Numb er: [id number] Exam Date: 16:40 Report Date: 09/14/2024 14:08 At the request of: SAMI MARINELLI Procedure: US pelvis w/ transvaginal EXAMINATION: US pelv is w/ transvaginal HISTORY: HEMATURIA R31.9 COMPARISON: 04/07/2024 FINDINGS: Transabdominal and transvaginal images The uterus is surgically absent. Areas of anechoic echogenicity in the cervix likely nabothian cysts The right ovary measures 2.7 x 1.8 x 2.4 cm. Normal color Doppler flow. Area of hypoechogenicity measuring 1.3 cm, complex versus functional cyst. The left ovary is surgically absent US/US pelvis w/ transvaginal IMPRESSION: 1.3 cm right ovarian cyst Electronically authenticated by: ABIGAIL SHEEHAN Date: 09/14/2024 14:08 Dictated By: Armando Sheehan M.D. Signed By: 09/14/24 1410 DD/ 1408 TD/TT: Customer Leader: XR cervical spine w flex/ext Reviewed date:08/14/2024 01:53:35 PM Interpretation: Performing Lab: Notes/Report: Source Facility: [facility]-[address], [place] [id number] XRay Report Signed Patient: PAIGE KEATING MR#: [id number] : 1975 Acct:[id number] Age/Sex: 49 / F ADM Date: 08/12/24 Loc: EC Attending Dr: Florin Ward M.D. Ordering Physician: Florin Ward M.D. Date of Service: 08/12/24 Procedure(s): XR cervical spine w flex/ext Accession Number(s): [id number] cc: Sami Marinelli M.D.; Florin Ward M.D. [place] [address] Patient Name: PAIGE KEATING MRN: [id number] date: 1975 Sex: F Assigned Patient Location: Current Patient Location: Accession/Order Number: [id number] Exam Date: 08/12/2024 15:10 Report Date: 08/14/2024 08:48 At the request of: FLORIN WARD Procedure: XR cervical spine w flex/ext EXAMINATION: XR cervical spine w flex/ext HISTORY: CERVICAL SPINE PAIN COMPARISON: XR C-spine 02/19/2022 FINDINGS: BONES: Slight reversal of normal lordotic curvature involving C4-C5-6. Minimal grade 1 anterior listhesis of C4 on 5; no change in alignment during flexion and extension. Multilevel mild degenerative facet arthropathy. DISC SPACES: Slight narrowing C5-C6. PARASPINOUS: Negative. No paraspinous abnormality is seen. OTHER: Negative. XR/XR cervical spine w flex/ext IMPRESSION: 1. Mild degenerative changes, and likely at least some degree of central canal and foraminal narrowing at C5-C6; Stable to slight progression since prior study. Electronically authenticated by: AMAN MCKEON Date: 08/14/2024 08:48 Dictated By: Aman Mckeon M.D. Signed By: 08/14/2458 DD/ 7 TD/TT: Customer Leader: [place] [address] XRay Report Signed Patient: MIHAELA KEATING MR#: [id number] : 1975 Acct:[id number] Age/Sex: 49 / F ADM Date: 08/12/24 Loc: EC Attending Dr: Florin Ward M.D. Ordering Physician: Florin Ward M.D. Date of Service: 08/12/24 Procedure(s): XR cervical spine w flex/ext Accession Number(s): [id number] cc: Sami Marinelli M.D. ; Florin Ward M.D. [place] [address] [place] [address] Patient Name: PAIGE KEATING MRN: [id number] date: 1975 Sex: F Assigned Patient Location: Current Patient Location: Accession/Order Numb er: [id number] Exam Date: 08/12/2024 15:10 Report Date: 08/14/2024 08:48 At the request of: FLORIN WARD Procedure: XR cervic al spine w flex/ext EXAMINATION: XR cervical spine w flex/ext HISTORY: CERVICAL SP INE PAIN COMPARISON: XR C-spi ne 02/19/2022 FINDINGS: BONES: Slight revers al of normal lordotic curvature involving C4-C5-6. Minimal grade 1 anterior listhesis of C4 on 5; no change in alignment during flexion and extension. Multilevel mild degenerative facet arthropathy. DISC SPACES: Slight narrowing C5-C6. PARASPINOUS: Negativ e. No paraspinous abnormality is seen. OTHER: Negative. XR/XR cervical spine w flex/ext IMPRESSION: 1. Mild degenerative changes, and likely at least some degree of central canal and foraminal narrow ing at C5-C6; Stable to slight progression since prior study. Electronically authenticated by: AMAN MCKEON Date: 08/14/2024 08:48 Dictated By: Aman Mckeon M.D. Signed By: 08/14/24857 DD/ 7 TD/TT: Customer Leader: LIVER PROFILE Reviewed date:11/08/2024 08:11:38 PM Interpretation: Performing Lab: Notes/Report: [facility] , Bilirubin Total 0.8 0.2-1.0 mg/dL Bilirubin Direct 0.1 0.0-0.2 mg/dL Aspartate Amino Transferase 12 15-37 U/L Alanine Aminotransferase 27 14-59 U/L Alkaline Phosphatase 56 46-116 U/L Total Protein 7.2 6.4-8.2 g/dL Albumin Level 3.9 3.4-5.0 g/dL Globulin 3.3 Albumin Globulin Ratio 1.2 Performing Lab: see note ML - [facility] IRON Reviewed date:11/08/2024 08:11:38 PM Interpretation: Performing Lab: Notes/Report: [facility] , Iron 51.0 50.0-170.0 ug/dL Performing Lab: see note - [facility] GLYCOHEMOGLOBIN A1C Reviewed date:11/08/2024 08:11:38 PM Interpretation: Performing Lab: Notes/Report: [facility] , Glycohemoglobin A1C 5.7 4.5-6.2 % ADA THERAPEUTIC TARGET < 7.0 > 7.0 ADA RECOMMENDED LIMIT 4.0 - 6.0 ACTION SUGGESTED Estimated Average Glucose 117 Performing Lab: see note - [facility] MR thoracic spine wo con Reviewed date:01/30/2025 12:35:04 PM Interpretation: Performing Lab: Notes/Report: Source Facility: [place] [address] Magnetic Resonance Report Signed Patient: PAIGE KEATING MR#: [id number] : 1975 Acct:[id number] Age/Sex: 49 / F ADM Date: 01/28/25 Loc: MRI Attending Dr: Sami Marinelli M.D. Ordering Physician: Sami Marinelli M.D. Date of Service: 01/28/25 Procedure(s): MR thoracic spine wo con Accession Number(s): [id number] cc: Sami Marinelli M.D. [place] [id number] Patient Name: PAIGE KEATING MRN: [facility]:[id number] date: 1975 Sex: F Assigned Patient Location: MRI Current Patient Location: MRI Accession/Order Number: [id number] Exam Date: 01/28/2025 15:57 Report Date: 01/28/2025 16:11 At the request of: SAMI MARINELLI MD Procedure: MR thoracic spine wo con MR thoracic spine wo con 01/28/2025 8:31 AM SIGNS AND SYMPTOMS: Chronic thoracic pain PROTOCOL: Multiplanar multisequence MR images of the thoracic spine were obtained without IV contrast. COMPARISON: None. FINDINGS: There is a marker posteriorly at the level of the C6 vertebral body and more inferiorly posterior to the T12 vertebral body level. The bones of the thoracic spine are in anatomic alignment. There is preservation of vertebral body heights. There is mild disc height loss with disc desiccation at T8-T9. The marrow signal is within normal limits. No epidural or paraspinous fluid collection is appreciated. The visualized paraspinous soft tissues are within normal limits. At T1-T2: There is a normal disc, central canal, and neural foramen. At T2-T3: There is a normal disc, central canal, and neural foramen. At T3-T4: There is a normal disc, central canal, and neural foramen. At T4-T5: There is a normal disc, central canal, and neural foramen. At T5-T6: There is a normal disc, central canal, and neural foramen. At T6-T7: There is a normal disc, central canal, and neural foramen. At T7-T8: There is a normal disc, central canal, and neural foramen. At T8-T9: There is a broad-based disc bulge with facet hypertrophy. There is mild spinal canal stenosis with mild left neural foraminal narrowing. At T9-T10: There is a normal disc, central canal, and neural foramen. At T10-T11: There is a normal disc, central canal, and neural foramen. At T11-T12: There is a normal disc, central canal, and neural foramen. At T12-L1: There is a normal disc, central canal, and neural foramen. MR/MR thoracic spine wo con IMPRESSION: No cord compression or cord signal abnormality. At T8-T9: There is a broad-based disc bulge with facet hypertrophy. There is mild spinal canal stenosis with mild left neural foraminal narrowing. Impression dictated by: J Carlos Cat M.D.01/28/2025 4:11 PM Dictation Location: [place] [address] Electronically authenticated by: [id number] Y Date: 01/28/2025 16:11 Dictated By: J Carlos Cat M.D. Signed By: 01/28/251613 DD/ 10 TD/TT: Customer Leader: [place] [address] Magnetic Resonance Report Signed Patient: MIHAELA KEATING MR#: [id number] : 1975 Acct:[id number] Age/Sex: 49 / F ADM Date: 01/28/25 Loc: MRI Attending Dr: Miki Marinelli M.D. Ordering Physician: Sami Marinelli M.D. Date of Service: 01/28/25 Procedure(s): MR thoracic spine wo con Accession Number(s): [id number] cc: Sami Marinelli M.D. [place] [address] Patient Name: PAIGE KEATING MRN: [id number] date: 1975 Sex: F Assigned Patient Location: MRI Current Patient Location: MRI Accession/Order Numb er: [id number] Exam Date: 01/28/2025 15:57 Report Date: 01/28/2025 16:11 At the request of: SAMI MARINELLI MD Procedure: MR thorac ic spine wo con MR thoracic spine wo con 01/28/2025 8:31 AM SIGNS AND SYMPTOMS: Chronic thoracic pain PROTOCOL: Multiplana r multisequence MR images of the thoracic spine were obtained without IV contrast. COMPARISON: None. FINDINGS: There is a marker posteriorly at the level of the C6 vertebral body and more inferiorly posterior to the T12 vertebral body level. The bones of the thoracic spine a re in anatomic alignment. There is preservation of vertebral body heigh ts. There is mild disc height loss with disc desiccation at T8-T9. The marrow signal is within normal limits. No epidural or paraspinous fluid collection is appreciated. The visualized paraspinous soft tissues are within normal limits. At T1-T2: There is a normal disc, central canal, and neural foramen. At T2-T3: There is a normal disc, central canal, and neural foramen. At T3-T4: There is a normal disc, central canal, and neural foramen. At T4-T5: There is a normal disc, central canal, and neural foramen. At T5-T6: There is a normal disc, central canal, and neural foramen. At T6-T7: There is a normal disc, central canal, and neural foramen. At T7-T8: There is a normal disc, central canal, and neural foramen. At T8-T9: There is a broad-based disc bulge with facet hypertrophy. There is mild spinal canal stenosis with mild left neural foraminal narrowing. At T9-T10: There is a normal disc, central canal, and neural foramen. At T10-T11: There is a normal disc, central canal, and neural foramen. At T11-T12: There is a normal disc, central canal, and neural foramen. At T12-L1: There is a normal disc, central canal, and neural foramen. MR/MR thoracic spine wo con IMPRESSION: No cord compression or cord signal abnormality. At T8-T9: There is a broad-based disc bulge with facet hypertrophy. There is mild spinal canal stenosis with mild left neural foraminal narrowing. Impression dictated by: J Carlos Cat M.D.01/28/2025 4:11 PM Dictation Location: [place] [address] Electronically authenticated by: [id number] Y Date: 01/28/2025 16:11 Dictated By: J Carlos Cat M.D. Signed By: 01/28/25 1614 DD/ 1611 TD/TT: Customer Leader: RIA tomosynthesis screening B I Reviewed date:01/30/2025 12:35:04 PM Interpretation: Performing Lab: Notes/Report: Source Facility: [facility]-[address] [place] [address] [place] [address] Mammography Report Signed Patient: PAIGE KEATING MR#: [id number] : 1975 Acct:[id number] Age/Sex: 49 / F ADM Date: 01/28/25 Loc: MAMMO Attending Dr: Aura Murillo D.O. Ordering Physician: Aura Murillo D.O. Results: Date of Service: 01/28/25 Follow Up: Procedure(s): MM tomosynthesis screening BI Accession Number(s): [id number] cc: Aura Murillo D.O.; Sami Marinelli M.D. Patient Name: PAIGE KEATING MR#: [id number] : 1975 Exam Date: 01/28/2025 Ordering Doctor: [...] ovarian cancer at age 77. LOCATION: [facility] BREAST COMPOSITION: There are scattered areas [...] J Carlos Cat M.D. Signed By: 01/28/25 3705 DD/ 1345 TD/TT: Customer Leader: The [place] [id number] Mammography Report Signed Patient: MIHAELA KEATING MR#: [id number] : 1975 Acct:[id number] Age/Sex: 49 / F ADM Date: 01/28/25 Loc: MAMMO Attending Dr: Aura Murillo D.O. Ordering Physician: Aura Murillo D.O. Results: Date of Service: 01/28/25 Follow Up: Procedure(s): MM tomosynthesis screening BI Accession Number(s): [id number] cc: Aura Murillo D.O. ; Sami Marinelli M.D. Patient Name: PAIGE KEATING MR#: [id number] : 1975 Exam Date: 01/28/2025 Ordering Doctor: [...] Year Breast Cancer Risk 1.50% Lifetime Breast Canc er Risk 13.20% Personal Breast Canc er No Personal Ovarian Can cer No Treatments None Family Cancers Mothe r with lung cancer at age 68; Grandmother-maternal with breast cancer a t age 64; Grandmother-paternal with ovarian cancer at age 76. LOCATION: [facility] BREAST COMPOSITION: There are scattered areas of fibroglandular density. FINDINGS: RIGHT BREAST: No significant suspicious finding. LEFT BREAST: No significant suspicious finding. There is a similar focal asymmetry of the lef t breast. Benign-appearing lymph nodes in the along the left chest wall paired DIAGNOSTIC CATEGORY 2--BENIGN FINDING. NO CHANGE FROM COMPARISON. RECOMMENDATIONS: ROUTINE MAMMOGRAM AN D CLINICAL EVALUATION IN 12 MONTHS. PLEASE NOTE: A NATIVIDAD L MAMMOGRAM DOES NOT EXCLUDE THE POSSIBILITY OF BREAST CANCER. A CLINICALLY SUSPICIOUS PALPABLE LUMP SHOULD BE BIOPSIED. Dictated by: J Carlos Cat MD on 01/28/2025 at 13:44 Approved by: J Carlos Cat MD on 01/28/2025 at 13:46 Dictated By: J Carlos Cat M.D. Signed By: 01/28/25 1355 DD/ 1342 TD/TT: Customer Leader: Neo Castillo Ra te Reviewed date:01/17/2025 04:47:29 PM Interpretation: Performing Lab: Notes/Report: [facility] , Erythrocyte Sedimentation Rate 9 <=20 mm/hr Performing Lab: see note ML - [facility] LB URIC ACID SERUM Reviewed date:01/17/2025 04:47:29 PM Interpretation: Performing Lab: Notes/Report: [facility] , Uric Acid 4.5 2.6-6.0 mg/dL Performing Lab: see note ML - [facility] LB CRP Reviewed date:01/17/2025 04:47:29 PM Interpretation: Performing Lab: Notes/Report: [facility] , C Reactive Protein <0.50 <=0.50 mg/dL Performing Lab: see note ML - [facility] LB Reason For Referral Reason Had last colonoscopy with you in 2018 Diagnosis 1 Positive occult stoo l blood test (R19.5) Referral Organization [facility] Referring Provider First Name Finesse Referring Provider Last Name [facility] Referring Provider [facility] Referred Provider Nicola Gee Referred Provider Specialty General Surg rita Referral Priority Routine Diagnosis 1 Elevated liver enzym es (R74.8) Referral Organization [facility] Referring Provider First Name Finesse Referring Provider Last Name [facility] Referring Provider [facility] Referred Provider Vinayak Baltazar Referred Provider Specialty Gastroentero logy Referral Priority Routine Diagnosis 1 Hand arthritis (M12. 9) Diagnosis 2 Other specified arth ritis, right hand (M13.841) Referral Organization [facility] Referring Provider First Name Finesse Referring Provider Last Name [facility] Referring Provider [facility] Referred Provider Nathan Vidal Referred Provider Specialty Rheumatology Referral Priority Routine Diagnosis 1 Other specified arth ritis, right hand (M13.841) Referral Organization [facility] Referring Provider First Name Finesse Referring Provider Last Name [facility] Referring Provider [facility] Referred Provider Rosalind Lara Referred Provider Specialty Orthopedic S urgery Referral Priority Routine Medications Medication SIG (Take, Route, Frequency, Duration) Notes Start Date End Date Status Cipro 500 MG 1 tablet Orally BID for 10 days 03/01/2025 Active Omeprazole 40 MG 1 capsule Orally twi ce a day for 90 days Active Estradiol 0.5 MG 1 tablet Orally Once a day for 30 days 10/07/2024 Active Ondansetron 4 MG 1 tablet on the tong ue and allow to dissolve Orally Once a day for 30 days 09/03/2024 Active ALPRAZolam 0.25 MG 1 tablet Orally once daily for 7 days As needed F41.9 08/05/2025 Active Nabumetone 750 MG as directed Orally BID Active Baclofen 5 MG 1-2 tablet as needed Orally at HS PRN 09/02/2024 Active Neurontin 100 MG 2 capsule at bedtime Orally Once a day for 30 days 01/14/2025 Active tiZANidine HCl 2 MG 1 tablet at bedtime as needed Orally Once a day for 30 days 07/04/2025 Active Adderall 30 MG 1 tablet Orally q am for 30 days 08/05/2025 Active Metoprolol Tartrate 75 mg TAKE 1 TABLET TWICE A DAY WITH FOOD Active Gabapentin 100 MG 1 am, 1 afternoon, 3 at hs Orally Once a day for 30 days 06/01/2025 Active Adderall XR 30 MG 1 capsule in the mor meagan Orally Once a day for 30 days 02/09/2025 Active Mupirocin 2 % 1 application Demolitionist ally Twice a day for 5 days 03/23/2025 Active Lisinopril 10 MG 1 tablet Orally Once a day for 90 days Active Testosterone 10 MG/ACT (2%) 1 pump to skin in the morning to the thighs Transdermal QOD for 30 days 10/19/2024 Active Adderall 10 MG 1 tablet Orally Q afternoon 08/05/2025 Active metFORMIN HCl 500 MG 1 tablet with a viridiana l Orally BID for 90 days 10/13/2024 Active Gabapentin 100 MG 1 capsule at bedtime Orally Once a day for 30 days 02/09/2025 Active Semaglutide 0.6 mg/0.5 mL Semaglutide 0.6 mg/0.5 mL 0.5 mL Subcutaneous Once Weekly for 30 days 08/09/2024 Active Lasix 20 MG 1 tablet Orally Once a day for 90 days PRN 04/08/2024 Active Terbinafine HCl 250 MG 1 tablet Orally O nce a day for 30 days 03/23/2025 Active Potassium Chloride ER 10 MEQ 1 tablet with food Orally Twice a day for 90 days PRN 04/08/2024 Active Social History Tobacco Use: Social History Observation Description Date Details (start date - stop date) Former Smoker NA - 12/31/2009 Tobacco Use/Smoking Question Answer Notes Patient is a former smoker When did you stop smoking? 12/31/2009 How long has it been since you last smoked? > 10 years Alcohol Screen (Audit-C) Question Answer Notes Did you have a drink containing alcohol in the p ast year? No Points 0 Interpretation Negative AUDIT-C (Standard) Question Answer Notes Did you have a drink containing alcohol in the p ast year? No Points 0 Interpretation Negative Problems Problem Type SNOMED Code ICD Code Onset Dates Problem Status W/U Status Risk Notes Problem 44499748 Obstructive slee p apnea (adult) (pediatric) (G47.33) Active confirmed Problem 7971780 Primary insomnia (F51.01) Active confirmed Problem Allergic arthritis o f the hand (746012675) Other specified arthritis, right hand (M13.841) Active confirmed Problem 04600363 Other intervertebral disc degeneration, lumbar region (M51.36) Active confirmed Problem Fatigue (90331229) Fatigue (R53.83) Active conf irmed Problem Hypertension (91301782) Hypertension (I10) Active confirmed Problem Gastroesophageal reflux disease (158010718) GERD (gastroesophageal reflux disease) (K21.9) Active confirmed Problem Anxiety (49181009) Anxiety (F41.9) Active confi rmed Problem Neck pain (53125668) Neck pain (M54.2) Active c onfirmed Problem Thoracic spinal stenosis (40076642) Thoracic spinal stenosis (M48.04) Active confirmed Problem Arthralgia (41722936) Arthralgia (M25.50) Active confirmed Problem Well adult (731367449) Well adult (Z00.00) Activ e confirmed Problem Pain in right hand (955665369601311) Right hand pain (M79.641) Active confirmed Problem Abnormal vaginal bleeding (668791940) DUB (dysfunctional uterine bleeding) (N93.8) Active confirmed Problem Narcolepsy (87418821) Narcolepsy (G47.419) Active confirmed Problem Plantar fasciitis (055684197) Plantar fasciitis (M72.2) Active confirmed Problem Diverticular disease of colon (713515555) Diverticula of colon (K57.30) Active confirmed Problem 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) Active confirmed Problem Visual disturbance (02803578) Vision changes (H53.9) Active confirmed Problem Arthropathy (720010313) Hand arthritis (M12.9) Active confirmed Problem Snoring (42667504) Snorings (R06.83) Active con firmed Problem Irritable bowel syndrome (58365825) Irritable bowel syndrome (IBS) (K58.9) Active confirmed Problem Arthralgia of the pelvic region and thigh (991652711) Hip pain, acute (M25.559) Active confirmed Problem hypercholesterolemia (disorder) (20456809) Hypercholesteremia (E78.00) Active confirmed Problem Prediabetes (034636197) Pre-diabetes (R73.03) Active confirmed Problem Cyst of right ovary (29992814982085838) Ovarian cyst, right (N83.201) Active confirmed Problem Arthritis of right hand (746265433192192) Arthritis of right hand (M19.041) Active confirmed Problem Low testosterone (059551526) Low testosterone (E34.9) Active confirmed Problem COVID-19 (972591541) COVID-19 (U07.1) Active co nfirmed Vital Signs Blood pressure diastolic 80 mm Hg 08/11/2025 Height 67 in 08/11/2025 Blood pressure systolic 122 mm Hg 08/11/2025 Weight 177.0 lbs 08/11/2025 BMI 27.72 kg/m2 08/11/2025 Encounters Encounter Location Date Provider Diagnosis [facility] [address] [place] [address] 08/11/2025 Finesse Hoy Other specified arth ritis, right hand M13.841 [facility] [address] [place] [address] 03/28/2025 Finesse Hoy Jaw pain R68.84 [facility] [address] [place] [address] 04/13/2025 Finesse Hoy [facility] [address] [place] [address] 04/27/2025 Finesse Hoy Jaw pain R68.84 and Other specified arthritis, right hand M13.841 [facility] [address] [place] [address] 06/01/2025 Finesse Hoy Jaw pain R68.84 and Other specified arthritis, right hand M13.841 [facility] [address] [facility] [place] [address] 07/04/2025 Finesse Hoy Other specified arth ritis, right hand M13.841 and Jaw pain R68.84 [facility] [address] [facility] [place] [address] 08/05/2025 Finesse Hoy Jaw pain R68.84 ; Ot her specified arthritis, right hand M13.841 and Hypertension I10 [facility] [address] [facility] [place] [address] 02/08/2025 Finesse Hoy Hypertension I10 and Other specified arthritis, right hand M13.841 [facility] [address] [facility] [place] [address] 03/01/2025 Finesse Hoy [facility] [address] [facility] [place] [address] 03/07/2025 Finesse Hoy Other specified arth ritis, right hand M13.841 [facility] [address] [facility] [place] [address] 03/16/2025 Finesse Hoy Kidney cysts Q61.00 [facility] [address] [facility] [place] [address] 03/25/2025 Finesse Hoy Jaw pain R68.84 [facility] [address] [facility] [place] [address] 03/28/2025 Finesse Hoy Jaw pain R68.84 [facility] [address] [facility] [place] [address] 12/23/2024 Finesse Hoy [facility] [address] [facility] [place] [address] 01/10/2025 Finesse Hoy Hypertension I10 [facility] [address] [facility] [place] [address] 01/17/2025 Finesse Hoy [facility] [address] [facility] [place] [address] 01/18/2025 Finesse Hoy [facility] [address] [facility] [place] [address] 01/27/2025 Finesse Hoy Other specified arth ritis, right hand M13.841 [facility] [address] [facility] [place] [address] 01/30/2025 Finesse Hoy Other specified arth ritis, right hand M13.841 [facility] [address] [facility] [place] [address] 11/10/2024 Finesse Hoy [facility] [address] [place] [facility] [place] [address] 11/12/2024 Finesse Hoy Hypertension I10 [facility] [address] [place] [place] [address] 11/15/2024 Finesse Hoy [facility] [address] [place] [address] 11/15/2024 Finesse Hoy [facility] [address] [place] [address] 11/19/2024 Finesse Hoy Hypertension I10 [facility] [address] [place] [place] [address] 11/26/2024 Finesse Hoy Hypertension I10 [facility] [address] [facility] [place] [address] 10/18/2024 Finesse Hoy [facility] [address] [place] [address] 10/19/2024 Finesse Hoy [facility] [address] [facility] [place] [address] 10/25/2024 Finesse Hoy [facility] [address] [place] [place] [place] [address] 11/02/2024 Finesse Hoy Hypertension I10 ; F atigue R53.83 and Elevated liver enzymes R74.8 [facility] [address] [facility] [place] [address] 11/08/2024 Finesse Hoy Hypertension I10 [facility] [address] [facility] [place] [address] 11/10/2024 Finesse Hoy [facility] [address] [facility] [place] [address] 10/07/2024 Finesse Hoy Elevated liver enzym es R74.8 and Fatigue R53.83 [facility] [address] [place] [place] [place] [address] 10/09/2024 Finesse Hoy Positive occult stoo l blood test R19.5 and Fatigue R53.83 [facility] [address] [facility] [place] [address] 10/11/2024 Finesse Hoy [facility] [address] [place] [address] 10/13/2024 Finesse Hoy Elevated liver enzym es R74.8 [facility] [address] [place] [address] 10/15/2024 Finesse Samy [facility] [address] [facility] [place] [address] 10/17/2024 Finesse Hoy [facility] [address] [place] [address] 09/06/2024 Finesse Hoy Hematuria R31.9 [facility] [address] [facility] [place] [address] 09/08/2024 Finesse Hoy [facility] [address] [facility] [place] [address] 09/14/2024 Finesse Hoy [facility] [address] [facility] [place] [address] 10/06/2024 Finesse Hoy [facility] [address] [facility] [place] [address] 10/06/2024 Finesse Hoy [facility] [address] [place] [address] 10/07/2024 Finesse Marinelli [address] [address] 08/13/2024 Finesse Marinelli [facility] [address] [place] [address] 09/03/[address]inesse [address]asy [address] [address] 10/18/2024 Finesse Hoy Hypertension I10 ; G ERD (gastroesophageal reflux disease) K21.9 ; Low testosterone E34.9 and Arthralgia M25.[address] [address] 01/14/2025 Finesse Vargasy Other specified arth ritis, right hand M13.841 ; Arthralgia M25.50 and Thoracic spinal stenosis M48.[address] [address] 03/23/2025 Finesse Hoy Jaw pain R68.84 and Pre-diabetes R73.[address] [address] 08/11/2025 Finesse Vargasy Hypercholesteremia E 78.00 ; Arthritis of right hand M19.041 ; Low testosterone E34.9 and Well adult Z00.[address] [address] 09/02/2024 Finesse Hoy Hypertension I10 and Hypercholesteremia E78.[address] [address] 10/06/2024 Finesse Hoy Hypertension I10 ; Pre-diabetes R73.03 and DUB (dysfunctional uterine bleeding) N93.8 Assessments Encounter Date Diagnosis (ICD Code) Assessment Notes Treatment Notes Treatment Clinical Notes Section Notes 09/02/2024 Hypertension (ICD-10 - I10) 09/02/2024 Hypercholesteremia (ICD-10 - E78.00) 10/06/2024 Hypertension (ICD-10 - I10) 10/06/2024 Pre-diabetes (ICD-10 - R73.03) 10/06/2024 DUB (dysfunctional uterine bleeding) (ICD-10 - N93.8) 10/18/2024 Hypertension (ICD-10 - I10) 10/18/2024 GERD (gastroesophage al reflux disease) (ICD-10 - K21.9) 09/06/2024 Hematuria (ICD-10 - R31.9) 10/07/2024 Elevated liver enzym es (ICD-10 - R74.8) 10/07/2024 Fatigue (ICD-10 - R53.83) 10/09/2024 Positive occult stoo l blood test (ICD-10 - R19.5) 10/09/2024 Fatigue (ICD-10 - R53.83) 10/13/2024 Elevated liver enzym es (ICD-10 - R74.8) 11/02/2024 Hypertension (ICD-10 - I10) 11/02/2024 Fatigue (ICD-10 - R53.83) 01/14/2025 Other specified arthritis, right hand (ICD-10 - M13.841) 01/14/2025 Arthralgia (ICD-10 - M25.50) 03/23/2025 Jaw pain (ICD-10 - R68.84) 03/23/2025 Pre-diabetes (ICD-10 - R73.03) 08/11/2025 Hypercholesteremia (ICD-10 - E78.00) 08/11/2025 Arthritis of right hand (ICD-10 - M19.041) 11/08/2024 Hypertension (ICD-10 - I10) 11/12/2024 Hypertension (ICD-10 - I10) 11/19/2024 Hypertension (ICD-10 - I10) 11/26/2024 Hypertension (ICD-10 - I10) 01/10/2025 Hypertension (ICD-10 - I10) 01/27/2025 Other specified arthritis, right hand (ICD-10 - M13.841) 01/30/2025 Other specified arthritis, right hand (ICD-10 - M13.841) 02/08/2025 Hypertension (ICD-10 - I10) 03/07/2025 Other specified arthritis, right hand (ICD-10 - M13.841) 03/16/2025 Kidney cysts (ICD-10 - Q61.00) 03/25/2025 Jaw pain (ICD-10 - R68.84) 03/28/2025 Jaw pain (ICD-10 - R68.84) 03/28/2025 Jaw pain (ICD-10 - R68.84) 04/27/2025 Jaw pain (ICD-10 - R68.84) 06/01/2025 Jaw pain (ICD-10 - R68.84) 07/04/2025 Other specified arthritis, right hand (ICD-10 - M13.841) 08/05/2025 Jaw pain (ICD-10 - R68.84) 08/11/2025 Other specified arthritis, right hand (ICD-10 - M13.841) 08/05/2025 Other specified arthritis, right hand (ICD-10 - M13.841) 07/04/2025 Jaw pain (ICD-10 - R68.84) 06/01/2025 Other specified arthritis, right hand (ICD-10 - M13.841) 04/27/2025 Other specified arthritis, right hand (ICD-10 - M13.841) 02/08/2025 Other specified arthritis, right hand (ICD-10 - M13.841) 08/11/2025 Low testosterone (ICD-10 - E34.9) 01/14/2025 Thoracic spinal stenosis (ICD-10 - M48.04) 11/02/2024 Elevated liver enzym es (ICD-10 - R74.8) 10/18/2024 Low testosterone (ICD-10 - E34.9) 10/18/2024 Arthralgia (ICD-10 - M25.50) 08/11/2025 Well adult (ICD-10 - Z00.00) 08/05/2025 Hypertension (ICD-10 - I10) Plan Of Treatment Pending Test Test Name Order Date CMP (COMPLETE METABOLIC PANEL) 3 CMP (COMPLETE METABOLIC PANEL) 4 HEMOGLOBIN A1C (GLYCO) 10/06/2024 HEMOGLOBIN A1C (GLYCO) 08/11/2025 IRON, TOTAL 08/11/2025 LIPID PANEL (CHOL/TRIG/HDL/LDL) 08/11/20 25 CBC WITH DIFF 10/06/2024 CBC WITH DIFF 09/10/2023 IGG, IGA and IGM, TOTAL (IMMUNOGLOBULINS ) 08/11/2025 VITAMIN D, 25 LEVEL (TOTAL) 08/11/2025 Urinalysis Microscopic 08/11/2025 RHEUMATOID PANEL 10/09/2024 RHEUMATOID PANEL 11/02/2024 RHEUMATOID PANEL 08/11/2025 RHEUMATOID PANEL 01/14/2025 LUPUS (12) PANEL 06/13/2023 LUPUS (12) PANEL 11/02/2024 Insulin Level 10/06/2024 Insulin Level 08/11/2025 ACUTE HEPATITIS PANEL 10/07/2024 CMP - Comprehensive Metabolic Panel 05/2024 TESTOSTERONE 10/07/2024 STOOL OCCULT BLOOD 08/11/2025 STOOL OCCULT BLOOD 10/06/2024 US Pelvis Complete 09/06/2024 CBC AUTO DIFF 09/02/2024 CULTURE URINE 08/11/2025 FSH 10/06/2024 GLYCOHEMOGLOBIN A1C 09/02/2024 GLYCOHEMOGLOBIN A1C 08/18/2023 LIPID PROFILE 09/02/2024 MAGNESIUM 08/11/2025 PHOSPHORUS 08/11/2025 PROF 14(COMP METB) 09/02/2024 RHEUMATOID FACTOR 06/13/2023 SED RATE WESTERGREN 01/14/2025 TESTOSTERONE, TOTAL 10/06/2024 TESTOSTERONE, TOTAL 08/11/2025 THYROID ANTIBODIES 08/11/2025 THYROID PROFILE WITH TSH 09/02/2024 TOTAL PROTEIN SERUM 11/02/2024 VIT B12 AND FOLATE 08/11/2025 MRI TSPINE WO CON 01/14/2025 US KIDNEYS 03/16/2025 US KIDNEYS BLADDER 09/06/2024 THYROID PANEL (T4/TSH/FREE T3) THYROID PANEL (T4/TSH/FREE T3) US renal bladder 08/11/2025 ROSS w/Reflex 11/02/2024 US abdomen limited 10/07/2024 CMP (COMP MET LOVE) w/eGFR CKD-EPI 2024 CBC WITH DIFF 08/11/2025 Insurance Providers Payer Name Payer Address Payer Phone Subscriber Number Group Number Insured Name Patient Relationship to Insured Coverage Start Date Coverage End Date MMO [employer] [address] [place] [address] [id number] Paige Keating Self - patient is the insured Medications Administered Medication Instructions Date of Administration Dosage Notes DEPO-Medrol 06/13/2023 120 mg 120 Dexamethasone, 4mg/mL 02/02/2024 12 mg 12 mg Kenalog-40 11/12/2023 120 mg 120 Ketorolac Tromethamine 02/02/2024 60 mg 60 Orphenadrine Citrate 02/02/2024 60 mg 60 Medical (General) History Medical History History ICD Code Hypertension I10 Vision changes H53.9 Pre-diabetes R73.03 Fatigue R53.83 Other specified arthritis, right hand M1 3.841 Diverticula of colon K57.30 Snorings R06.83 Plantar fasciitis M72.2 Nasal obstruction J34.89 GERD (gastroesophageal reflux disease) K 21.9 Gastric ulcer K25.9 Adenoma of colon D12.6 Bullous lesion of soft palate K13.79 Arthralgia M25.50 Irritable bowel syndrome (IBS) K58.9 Anxiety F41.9 DUB (dysfunctional uterine bleeding) N93 .8 Ovarian cyst, right N83.201 Surgical History Surgery Date(Month/Year) Bilateral L3-4 transforaminal epidural s teroid inj 10/04/24 colonoscopy 2020 hysterectomy Cholecystectomy Endometrial Polyp removal Tubal Ligation Right Sacroiliac joint injection- Dr Alexander becerra 11/15/24 Right index finger steroid injection 2024 EGD- Dr Guillermo Nelson 10/02/24
--- OUTSIDE RECORDS SUMMARY | 2025-08-13 11:42 | XMS_ITS | Encounter Summary ---
Author Organization [facility] Address [address] [place] [address] Care Team Providers Care Surgical Coder Name Role Phone Varun Marinelli MD Primary Care Provider [phone] Tiesha Hughes DISH WASHER Unavailable [phone] Shasha White DO Unavailable [phone] Encounter Details Date Type Department Care Team (Late st Contact Info) Description 12/08/2024 Orders Only [facility] [address] [place] [id number] Bobbi Mcclain LPN [address] [place] [address] Social History Tobacco Use Types Packs/Day Years [...] Procedure Name Priority Date/Time Associated Diagnosis Comments PAP SMEAR Routine 11/22/2024 12:00 AM EST documented in this encounter Results * Pap Smear (11/22/2024 12:00 AM EST) Swab Cervical swab / Unknown us Delgado Murillo DO LAB CYTOLOGY ORDERABLES Final Re sult EXTERNAL LAB documented in this encounter Visit Diagnoses Not on filedocumented in this encounter Care Teams Surgical Coder Relationship Specialty Start Date End Date Varun Marinelli MD PCP - General Family Medicine 06/26/23 Tiesha Hughes NP Nurse Practitioner Neurology 02/03/25 Shasha White DO [address] [place] [address] Referring Physician Neurology 02/03/25 documented as of this encounter
--- OUTSIDE RECORDS SUMMARY | 2025-08-13 11:43 | XMS_ITS | CCD ---
Author Organization [facility] Inform ion [facility] Care Team Providers Care Binder Technician Name Role Phone Nahid Mccoy Unavailable AldoClarice guzman Unavailable Sami Mccarty Primary Care Physician DR [...] Primary Care Provider Unavailsalome Fuller [facility] Attending Provider Sami Mccarty MD Primary Care Provider [phone] BECCA SCHWARZ Attending Unavailable MIGUEL MCCARTYLAS M Referring Unavailable SAMI MCCARTY M Primary Care Unavailable SAIM MCCARTY M Referring Unavailable SAMI MCCARTY M Primary Care Unavailable SHEELA, MENNATALLAH M Admitting Unavailable SHEELA, MENNATALLAH M Attending Unavailable SAMI MCCARTY M Primary Care Unavailable Marek BURK, Andrius Rock Attending Unavailable Marek BURK, Andrius Rock Attending Unavailable Marek BURK, Andrius Pranav Attending Unavailable Marek BURK, Andrius Rock Attending Unavailable Sami Mccarty MD Primary Care Provider [phone] Ellen SEAMAN, Tiesha Unavailable Shasha White DO Unavailable TIESHA HUGHES Attending Unavailable DELGADO MURILLO Attending Unavailable CAROL WEBB Attending Unavailable EDWIGE MAGAÑA Referring Unavailable DELGADO MURILLO Attending Unavailable DELGADO MURILLO Attending Unavailable Kuns - CHCDedrick Admitting Unavailable Kuns - CHC, Dedrick Majano Attending Unavailable NON STAFF Primary Care Unavailable Carol Vidal Attending Unavailable NON STAFF Primary Care Unavailable Carol Vidal Admitting Unavailable NON STAFF Primary Care Provider UnavailCarol Pritchett MD Attending Provider [phone] Vinayak Baltazar Attending Unavailable Vinayak Baltazar Attending Unavailable Allergies Allergy Classification Reported Allergen(s) Allergy Type Date of Onset Reaction(s) Facility (10 sources) NITROFURANTOIN, MACROCRYSTALS / Nitrofurantoin, Monohydrate; Translations: [nitrofurantoin] Drug Allergy 05-01-20 18 Neck swelling (finding), Swelling [facility] (2 sources) Albuterol Drug Allergy [facility] Comment on above: NEED TO CUT DOWN ADR ENALIN TO PREVENT SEIZURES (3 sources) Bee/Wasp/Ant venom; Translations: [Bee Stings] Allergy to substance Nausea, Swelling [facility] (2 sources) PECANS 1 Food allergy [facility] Comment on above: AIRWAY CONSTRICTION (2 sources) bee venom Drug allergy (disorder) 06-09-20 15 [facility] (2 sources) egg extract Drug Allergy 06-09-20 15 [facility] (4 sources) Nitrofurantoin; Translations: [Macrobid] Drug Allergy 05-02-20 12 [facility] (2 sources) pecan pollen extract Drug Allergy [facility] (4 sources) tree nut, unspecified; Translations: [TREE NUT] Drug allergy (disorder) 06-09-20 15 [facility] (16 sources) Albuterol; Translations: [albuterol] Drug Allergy 07-16-20 17 Other, Other (See Comments) [facility] Repository (12 sources) Honey bee venom Allergy to substance 04-05-20 24 [facility] (12 sources) Nitrofurantoin Drug Allergy 05-01-20 18 Swelling [facility] (12 sources) Nitrofurantoin Drug Allergy 04-05-20 24 [facility] (12 sources) Egg-Derived Products Drug Allergy 04-05-20 [facility] (16 sources) Other; Translations: [OTHER] Propensity to adverse reactions 05-13-20 05 [facility] (2 sources) NITROFURANTOIN MONOHYD/M-CRYST; Translations: [NITROFURANTOIN MONOHYD/M-CRYST] Propensity to adverse reactions to drug (disorder) 05-01-20 [facility] (2 sources) BEE VENOM PROTEIN (HONEY BEE); Translations: [BEE VENOM PROTEIN (HONEY BEE)] Propensity to adverse reactions to drug (disorder) 04-05-20 [facility] (1 source) Nitrofurantoin Drug Allergy 10-01-20 [facility] (1 source) Egg; Translations: [Eggs] Food allergy (disorder) [facility] Repository (1 source) PECANS; Translations: [PECANS] Food allergy (disorder) [facility] Rep[facility] Medications Current Medications Medication Drug Class(es) Dates Sig (Normalized) Sig (Original) 0.25 MG, 0.5 MG Dose 3 ML semaglutide 0.68 MG/ML Pen Injector [Ozempic] (1 source) Start: 11-01-2024 Ozempic 2 mg/3 mL (0.25 mg or 0.5 mg dose) subcutaneous solution SubCutaneous, Refills(s) 0 Start Date: 11/01/24 Status: Ordered ALPRAZolam 0.25 mg oral tablet (20 sources) Benzodiazepine Start: 11-17-2014 take 1 tablet [...] sulfate 7.5 mg extended release oral capsule (7 sources) Central Nervous System Stimulant Start: 11-01-2024 Adderall XR 30 mg Cap-ER Refills(s) 0 Start Date: 11/01/24 Status: Ordered take 1 tablet by fernando th every twenty-four hours as needed amphetamine-dextroamphetamine (Adderall) 10 MG tablet Take 10 mg by mouth Daily as needed Active aspirin 325 mg oral capsule (9 sources) Platelet Aggregation Inhibitor, Nonsteroidal Anti-inflammatory Drug Start: 11-01-2024 take 1 mg by mouth every four hours aspirin 325 mg oral capsule mg cap(s), Oral, q4hr, Refills(s) 0 Start Date: 11/01/24 Status: Ordered take 1 tablet by mouth in the mo rning aspirin 325 mg EC tablet Take 1 [...] tablet by mouth in the mo rning polycarbophil (FIBERCON) 625 mg tablet Take 1 tablet (625 mg total) by mouth in the morning. Active celecoxib 100 mg oral capsule (5 sources) Nonsteroidal Anti-inflammatory Drug Start: 11-01-2024 take 1 capsule by mouth twice daily celecoxib 100 mg Cap = 1 cap(s), Oral, BID, Refills(s) 0 Start Date: 11/01/24 Status: Ordered docusate sodium 50 mg oral capsule (2 sources) take 1 capsule by mouth in the morning, then take 1 capsule by mouth at bedtime docusate sodium (COLACE) 50 mg capsule Take 1 capsule (50 mg total) by mouth in the morning and 1 capsule (50 mg total) before bedtime. Active doxepin hydrochloride 10 mg oral capsule (12 sources) Tricyclic Antidepressant Start: 06-09-2023 take 1 capsule by mouth at bedtime doxepin (SINEquan) 10 MG capsule Take 10 mg by mouth at bedtime. 06/09/2023 Active estradiol 1 mg oral tablet (11 sources) Estrogen Start: 11-22-2024 End: 12-22-2024 take 1 tablet by mouth once daily estradiol (Estrace) 1 MG tablet Indications: H/O: hysterectomy Take 1 tablet (1 mg) by mouth Daily 30 tablet 3 11/22/2024 Active Start: 10-07-2024 End: 11-22-2024 take 1 [...] 2 doses 2 tablet 11/22/2024 11/26/2024 Active gabapentin 100 mg oral capsule (2 sources) Anti-epileptic Agent gabapentin (Neurontin) 100 MG capsule Take by mouth 2 (two) times a day Active lactobacillus acidophilus [id number] unt / pectin 100 mg oral tablet [...] morning. Active lisinopril 20 mg oral tablet (12 sources) Angiotensin Converting Enzyme Inhibitor Start: 10-30-2022 take 1 tablet by mouth once daily lisinopril 20 mg Tab 20 mg = 1 tab(s), Oral, Daily, Refills(s) 0 Start Date: 10/30/22 Status: Ordered meloxicam 15 mg oral tablet (20 sources) Nonsteroidal Anti-inflammatory Drug Start: 06-14-2023 take [...] Discontinued metFORMIN hydrochloride 500 mg oral tablet (3 sources) Biguanide Start: 11-01-2024 take 1 tablet by mouth twice daily metformin 500 mg Tab = 1 tab(s), Oral, BID, Refills(s) 0 Start Date: 11/01/24 Status: Ordered metoprolol tartrate 75 mg oral tablet (15 sources) beta-Adrenergic Jeffrey Start: 11-01-2024 take 1 tablet by mouth twice daily metoprolol tartrate 75 mg oral tablet = 1 tab(s), Oral, BID, Refills(s) 0 Start Date: 11/01/24 Status: Ordered Start: 05-17-2023 metoprolol tar trate (Lopressor) 75 MG tablet Take 50 mg by mouth in the morning and 50 mg before bedtime. 05/17/2023 Active Start: 05-17-2023 take 1 tablet by fernando th in the morning metoprolol tartrate (Lopressor) 50 [...] omeprazole 40 mg delayed release oral capsule (20 sources) Proton Pump Inhibitor Start: 2 take 1 capsule by mouth twice daily omeprazole 40 mg Cap-DR 40 mg = 1 cap(s), Oral, BID, Refills(s) 0 Start Date: 10/30/22 Status: Ordered take 1 capsule by mo [facility] every twenty-four hours Omeprazole 40 MG 1 cap(s) p.o. Once a da y Active peg 3350-sod sulf,cunm-yla-anc 178.7-7.3-0.5 gram recon soln (1 source) Start: 10-13-2024 End: 10-14-2024 peg 3350-sod sulf,zdrl-jze-rlm 178.7-7.3-0.5 gram recon soln Indications: Positive fecal occult blood test Take 1 kit by mouth once daily for 1 dose. Please see instructional sheet given by physicians office. 1 each 10/13/2024 10/14/2024 Active phentermine hydrochloride 37.5 mg oral tablet (12 sources) Sympathomimetic Amine Anorectic Start: 06-13-2023 take [...] 1.5 ml semaglutide 1.34 mg/ml pen injector (9 sources) Start: 08-28-2022 Ozempic (0.25 or 0.5 MG/DOSE) 2 MG/1.5ML 0.25 mg for one month and then increase to 0.5 mg dose Subcutaneous weekly for 30 days Aug, Active semaglutide (Oze mpic, 0.25 or 0.5 MG/DOSE,) 2 MG/1.5ML solution pen-injector Inject under the skin Active 120 actuat testosterone 10 mg/actuat topical gel (6 sources) Androgen Start: 10-19-2024 testosterone (Fortesta) 10 MG/ACT (2%) gel gel 1 pump to skin in the morning to the thighs Transdermal QOD for 30 days 10/19/2024 Active tiZANidine 4 mg oral capsule (15 sources) Central alpha-2 Adrenergic Agonist Start: 11-01-2024 [...] Unspecified abdominal pain; Translations: [Periumbilical pain] Onset: Episodic Administrative/social admission (2 sources) Patient encounter [...] Translations: [Rectal hemorrhage] Onset: 4 10-13-2024 Episodic Immunizations and screening for infectious disease (2 sources) Encounter for screening for human papillomavirus (HPV); Translations: [Raised antibody titer] Onset: 2 Episodic Menstrual disorders (3 sources) Dysmenorrhea, unspecified; Translations: [DYSMENORRHEA UNSPECIFIED] Onset: 2 Chronic Miscellaneous mental health disorders (2 sources) Primary insomnia; Translations: [Primary insomnia] 02-03-2025 Chronic Mycoses (2 sources) Mycosis; Translations: [Candidiasis, unspecified] 11-22-2024 Episodic Osteoarthritis (3 sources) Primary osteoarthritis, left hand; Translations: [Primary osteoarthritis, right hand] Onset: 2 11-01-2024 Chronic Other aftercare (1 source) Other nursing home (current) drug therapy; Translations: [OTH CLINICAL INFORMATICIST CURRENT DRUG THERAPY] Onset: 2 Episodic Other [...] source) Non-alcoholic fatty liver 11-01-2024 Chronic Other lower respiratory disease (2 sources) Hypoxia; Translations: [Hypoxemia] 02-03-2025 Episodic Other lower respiratory disease (2 sources) Snoring; Translations: [Snoring] 02-03-2025 Episodic Other nutritional; endocrine; and metabolic disorders (8 [...] Onset: 2 10-30-2022 Episodic Residual codes; unclassified (11 sources) Obstructive sleep apnea syndrome; Translations: [Obstructive sleep apnea (adult) (pediatric)] Onset: 2 10-30-2022 Chronic Residual codes; unclassified (5 sources) Obstructive sleep apnea (adult) (pediatric); Translations: [OBSTRUCTIVE SLEEP APNEA] Onset: 2 Chronic Residual codes; unclassified (2 sources) Hypersomnia; Translations: [Hypersomnia, unspecified] 02-03-2025 Chronic Residual codes; unclassified (2 sources) At [...] (1 source) positive fecal occult blood Onset: Past or Other Problems Problem Classification Problem Date Documented Da te Episodic/Chronic Nonspecific chest pain (1 source) Chest pain, [...] Test Name Value Interpretation Reference Range Facility ROSS Antinuclear Antibodieson 02-01-2025 Antinuclear Abs, IFA Negative Normal . [facility] Comment on above: Result Comment: Nega tive <1:80 Borderline 1:80 Positive >1:80 ICAP nomenclature: AC-0 For more information about Hep-2 cell patterns use ANApatterns.org, the official website for the International Consensus on Antinuclear Antibody (ROSS) Patterns (ICAP). Performed at: - [facility] [place] [id number] Patient Portal Representative: Bowen Mcleod PhD, Phone: [phone] Performed By: #### T PO, C3, CHROMATIN, C4, THYGLOB AB, CH50, ROSS #### [facility] , Alanine aminotransferase [En zymatic activity/volume] in Serum or PlasmaOrdered By: Carol Vidal on 02-01-2025 ALT [Catalytic activity/Vol] Alanine aminotransferase [Enzymatic activity/volume] in Serum or Plasma [facility] Albumin [Mass/volume] in Ser um or Plasma by Bromocresol green (BCG) dye binding methoOrdered By: Carol Vidal on 02-01-2025 Albumin BCG dye [Mass/Vol] Albumin [Mass/volume] in Serum or Plasma by Bromocresol green (BCG) dye binding metho 3.5-5.7 [facility] Aldolaseon 02-01-2025 Aldolase 4.0 U/L Normal 3.3-10.3 [facility] Comment on above: Result Comment: Perf ormed at: [address] [id number] Patient Portal Representative: Bowen Mcleod PhD, Phone: [phone] PERFORMED BY: [facility] [place] [address] PATHOLOGIST CORPORATE SALES REPRESENTATIVE NADYA FREDERICK M.D. Performed By: #### T PO, C3, CHROMATIN, C4, THYGLOB AB, CH50, ROSS #### [facility] , Alkaline phosphatase [Enzyma tic activity/volume] in Serum or PlasmaOrdered By: Carol Vidal on 02-01-2025 ALP [Catalytic activity/Vol] Alkaline phosphatase [Enzymatic activity/volume] in Serum or Plasma 34-104 [facility] Antithyroglobulin Abon 02-01 Antithyroglobulin Ab <1.0 Normal 0.0-0.9 [facility] Comment on above: Result Comment: Thyr oglobulin Antibody measured by [facility] [place] Methodology It should be noted that the presence of thyroglobulin antibodies may not be pathogenic nor diagnostic, especially at very low levels. The assay cloth shrinking tester has found that four percent of individuals without evidence of thyroid disease or autoimmunity will have positive TgAb levels up to 4 IU/mL. Performed at: [address] [id number] Patient Portal Representative: Bowen Mcleod PhD, Phone: [phone] Performed By: #### T PO, C3, CHROMATIN, C4, THYGLOB AB, CH50, ROSS #### [facility] , Appearance of UrineOrdered B y: Carol Vidal on 02-01-2025 Appearance (U) Urine appearance [facility] Aspartate aminotransferase [ Enzymatic activity/volume] in Serum or PlasmaOrdered By: Carol Vidal on 02-01-2025 AST [Catalytic activity/Vol] Aspartate aminotransferase [Enzymatic activity/volume] in Serum or Plasma 13-39 [facility] Bacteria [Presence] in Urine by AutomatedOrdered By: Carol Vidal on 02-01-2025 Bacteria Auto Ql (U) Bacteria [Presence] in Urine by Automated None Seen [facility] Basophils Auto (Bld) [#/Vol] Ordered By: Carol Vidal on 02-01-2025 Basophils (Bld) [#/Vol] Automated basophil count 0.0-0.2 [facility] Basophils/100 WBC Auto (Bld) Ordered By: Carol Vidal on 02-01-2025 Basophils/100 WBC (Bld) Automated basophil % . [facility] Bilirubin Test strip Ql (U)O rdered By: Carol Vidal on 02-01-2025 Bilirubin Ql (U) Bilirubin.total [Pre sence] in Urine by Test strip Negative [facility] Bilirubin.total [Mass/volume ] in Serum or PlasmaOrdered By: Carol Vidal on 02-01-2025 Bilirubin [Mass/Vol] Bilirubin.total [Mass/volume] in Serum or Plasma High 0.3-1.0 [facility] Comment on above: Samples from patient s who have taken Naproxen have shown spurious elevation in Total Bilirubin levels. A metabolite of Naproxen, O-desmethylnaproxen, has been shown to interfere with the Yvan-Shree method for measuring Total Bilirubin. C reactive protein [Mass/vol ume] in Serum or PlasmaOrdered By: Carol Vidal on 02-01-2025 CRP [Mass/Vol] C reactive protein [Mass/volume] in Serum or Plasma 0.0-0.5 [facility] C-Reactive Proteinon 025 CRP [Mass/Vol] mg/L Normal 0.0-0.5 [facility] Comment on above: Performed By: #### T PO, C3, CHROMATIN, C4, THYGLOB AB, CH50, ROSS #### [facility] , Calcium [Mass/volume] in Ser um or PlasmaOrdered By: Carol Vidal on 02-01-2025 Calcium [Mass/Vol] Calcium [Mass/volume ] in Serum or Plasma 8.6-10.3 [facility] Carbon dioxide, total [Moles /volume] in Serum or PlasmaOrdered By: Carol Vidal on 02-01-2025 CO2 [Moles/Vol] Carbon dioxide, tota l [Moles/volume] in Serum or Plasma 21.0-31.0 [facility] Chloride [Moles/volume] in S altagracia or PlasmaOrdered By: Carol Vidal on 02-01-2025 Chloride [Moles/Vol] Chloride [Moles/vol ume] in Serum or Plasma 98-107 [facility] Chromatin Antibodyon 025 Chromatin Antibody <0.2 Normal 0.0-0.9 [facility] Comment on above: Result Comment: Perf ormed at: - [facility] [address] [id number] Patient Portal Representative: Bowen Mcleod PhD, Phone: [phone] PERFORMED BY: [address] [place] [id number] PATHOLOGIST CORPORATE SALES REPRESENTATIVE NADYA FREDERICK M.D. Performed By: #### T PO, C3, CHROMATIN, C4, THYGLOB AB, CH50, ROSS #### [facility] , Coagulation Profileon 2024 aPTT Coag (Bld) [Time] 29.2 s Normal 25.1-36.5 Th [facility] Comment on above: Result Comment: A he matocrit value greater than 55% may lead to inaccurate results in coagulation testing. Patients having hematocrit values >55% require a special collection tube for coagulation studies. Please contact the laboratory at [phone] for redraw instructions. PERFORMED BY: [address] [place] [address] PATHOLOGIST CORPORATE SALES REPRESENTATIVE NADYA FREDERICK M.D. Performed By: #### T PO, C3, CHROMATIN, C4, THYGLOB AB, CH50, ROSS #### [facility] , INR Coag (PPP) [Relative time] 0.9 {INR} Normal [facility] Comment on above: Result Comment: INR Therapeutic Range A) Pre- and Peroperative OAT started two weeks before surgery. NOT HIP SURGERY: 1.5 - 2.5 HIP SURGERY: 2 - 3 B) Primary and secondary prevention of venous THROMBOSIS: 2 - 3 C) Active venous thrombosis, pulmonary embolism and prevention of recurrent venous thrombosis: 2 - 3 D) Prevention of arterial thromboembolism including patients with mechanical heart valves: 3 - 4.5 Performed By: #### T PO, C3, CHROMATIN, C4, THYGLOB AB, CH50, ROSS #### [facility] , PT Coag (PPP) [Time] 10.8 s Normal 9.0-12.9 [facility] Comment on above: Result Comment: A he matocrit value greater than 55% may lead to inaccurate results in coagulation testing. Patients having hematocrit values >55% require a special collection tube for coagulation studies. Please contact the laboratory at [phone] for redraw instructions. Performed By: #### T PO, C3, CHROMATIN, C4, THYGLOB AB, CH50, ROSS #### [facility] , Color Auto (U)Ordered By: Anna Vidal on 02-01-2025 Color (U) Color of Urine by Auto Yellow [facility] Complement C3on 02-01-2025 Complement C3 135 mg/dL Normal 82-167 [facility] Comment on above: Result Comment: Perf ormed at: - [facility] [place] [id number] Patient Portal Representative: Bowen Mcleod PhD, Phone: [phone] Performed By: #### T PO, C3, CHROMATIN, C4, THYGLOB AB, CH50, ROSS #### [facility] , Complement C4on 02-01-2025 Complement C4 21 mg/dL Normal 12-38 [facility] Comment on above: Performed By: #### T PO, C3, CHROMATIN, C4, THYGLOB AB, CH50, ROSS #### [facility] , Complement Total (CH50)on Complement Total (CH50) 57 Normal >41 [facility] Comment on above: Result Comment: Age Male Female 1 - 30 days Not Estab. Not Estab. 31 days - 6 months >32 >20 7 months - 17 years >39 >39 >17 years >41 >41 NOTE: The adult ( >17 years ) reference interval range is used to flag abnormals on this report. If the patient is 17 years old or younger, use the table above to determine out of range values. Performed at: [address] [id number] Patient Portal Representative: Bowen Mcleod PhD, Phone: [phone] PERFORMED BY: [facility] [place] [address] PATHOLOGIST CORPORATE SALES REPRESENTATIVE NADYA FREDERICK M.D. Performed By: #### T PO, C3, CHROMATIN, C4, THYGLOB AB, CH50, ROSS #### [facility] , Complete Blood Count Auto Di ffon 02-01-2025 Basophils (Bld) [#/Vol] 0.0 10*3/uL Normal 0.0-0.2 [facility] Comment on above: Performed By: #### T PO, C3, CHROMATIN, C4, THYGLOB AB, CH50, ROSS #### [facility] , Basophils/100 WBC (Bld) 0.3 % Normal . [facility] Comment on above: Performed By: #### T PO, C3, CHROMATIN, C4, THYGLOB AB, CH50, ROSS #### [facility] , Eosinophils (Bld) [#/Vol] 0.1 10*3/uL Normal 0.0-0.45 [facility] Comment on above: Performed By: #### T PO, C3, CHROMATIN, C4, THYGLOB AB, CH50, ROSS #### [facility] , Eosinophils/100 WBC (Bld) 1.3 % Normal . [facility] Comment on above: Performed By: #### T PO, C3, CHROMATIN, C4, THYGLOB AB, CH50, ROSS #### [facility] , Erythrocyte distribution width (RBC) [Ratio] 12.5 % Normal 11.9-15.3 [facility] Comment on above: Performed By: #### T PO, C3, CHROMATIN, C4, THYGLOB AB, CH50, ROSS #### [facility] , Hematocrit (Bld) [Volume fraction] 39.2 % Normal 34.0-46.4 [facility] Comment on above: Performed By: #### T PO, C3, CHROMATIN, C4, THYGLOB AB, CH50, ROSS #### [facility] , Hemoglobin (Bld) [Mass/Vol] 13.5 g/dL Normal 11.8-15.4 [facility] Comment on above: Performed By: #### T PO, C3, CHROMATIN, C4, THYGLOB AB, CH50, ROSS #### [facility] , Lymphocytes (Bld) [#/Vol] 3.6 10*3/uL Normal 1.00-4.8 [facility] Comment on above: Performed By: #### T PO, C3, CHROMATIN, C4, THYGLOB AB, CH50, ROSS #### [facility] , Lymphocytes/100 WBC (Bld) 50.6 % Normal . [facility] Comment on above: Performed By: #### T PO, C3, CHROMATIN, C4, THYGLOB AB, CH50, ROSS #### [facility] , MCH (RBC) [Entitic mass] 31.1 pg Normal 24.7-34.3 [facility] Comment on above: Performed By: #### T PO, C3, CHROMATIN, C4, THYGLOB AB, CH50, ROSS #### [facility] , MCV (RBC) [Entitic vol] 90.2 fL Normal 80-100 [facility] Comment on above: Performed By: #### T PO, C3, CHROMATIN, C4, THYGLOB AB, CH50, ROSS #### [facility] , Mean Corpuscular HGB Conc 34.5 g/dL Normal 32.0-35.0 [facility] Comment on above: Performed By: #### T PO, C3, CHROMATIN, C4, THYGLOB AB, CH50, ROSS #### [facility] , Monocytes (Bld) [#/Vol] 0.4 10*3/uL Normal 0.0-0.8 [facility] Comment on above: Performed By: #### T PO, C3, CHROMATIN, C4, THYGLOB AB, CH50, ROSS #### [facility] , Monocytes/100 WBC (Bld) 6.1 % Normal . [facility] Comment on above: Performed By: #### T PO, C3, CHROMATIN, C4, THYGLOB AB, CH50, ROSS #### [facility] , Neutrophils (Bld) [#/Vol] 3.0 10*3/uL Normal 1.8-7.7 [facility] [facility] Comment on above: Performed By: #### T PO, C3, CHROMATIN, C4, THYGLOB AB, CH50, ROSS #### [facility] , Neutrophils/100 WBC (Bld) 41.7 % Normal . [facility] Comment on above: Performed By: #### T PO, C3, CHROMATIN, C4, THYGLOB AB, CH50, ROSS #### [facility] , NRBC% 0.0 /100{WBC} Normal 0-0.5 [facility] Comment on above: Performed By: #### T PO, C3, CHROMATIN, C4, THYGLOB AB, CH50, ROSS #### [facility] , Platelet mean volume (Bld) [Entitic vol] 9.1 fL Normal 6.3-10.7 [facility] Comment on above: Performed By: #### T PO, C3, CHROMATIN, C4, THYGLOB AB, CH50, ROSS #### [facility] , Platelets (Bld) [#/Vol] 251 10*3/uL Normal 150-450 [facility] Comment on above: Performed By: #### T PO, C3, CHROMATIN, C4, THYGLOB AB, CH50, ROSS #### [facility] , RBC (Bld) [#/Vol] 4.34 10*6/uL Normal 3.60-5.00 [facility] Comment on above: Performed By: #### T PO, C3, CHROMATIN, C4, THYGLOB AB, CH50, ROSS #### [facility] , WBC (Bld) [#/Vol] 7.2 10*3/uL Normal 3.8-11.6 [facility] Comment on above: Performed By: #### T PO, C3, CHROMATIN, C4, THYGLOB AB, CH50, ROSS #### [facility] , Comprehensive Metabolic Pane lilly 02-01-2025 Albumin [Mass/Vol] 4.7 g/dL Normal 3.5-5.7 [facility] Comment on above: Performed By: #### T PO, C3, CHROMATIN, C4, THYGLOB AB, CH50, ROSS #### [facility] , Albumin/Globulin [Mass ratio] 2.0 {ratio} Normal [facility] Comment on above: Performed By: #### T PO, C3, CHROMATIN, C4, THYGLOB AB, CH50, ROSS #### [facility] , ALP [Catalytic activity/Vol] 54 U/L Normal 34-104 [facility] Comment on above: Performed By: #### T PO, C3, CHROMATIN, C4, THYGLOB AB, CH50, ROSS #### [facility] , ALT [Catalytic activity/Vol] 14 U/L Normal 7-52 [facility] Comment on above: Performed By: #### T PO, C3, CHROMATIN, C4, THYGLOB AB, CH50, ROSS #### [facility] , Anion gap [Moles/Vol] 9.2 mmol/L Normal 6.0-15.0 [facility] Comment on above: Performed By: #### T PO, C3, CHROMATIN, C4, THYGLOB AB, CH50, ROSS #### [facility] , AST [Catalytic activity/Vol] 15 U/L Normal 13-39 [facility] Comment on above: Performed By: #### T PO, C3, CHROMATIN, C4, THYGLOB AB, CH50, ROSS #### [facility] , Bilirubin [Mass/Vol] 1.3 mg/dL High 0.3-1.0 [facility] Comment on above: Result Comment: Samp les from patients who have taken Naproxen have shown spurious elevation in Total Bilirubin levels. A metabolite of Naproxen, O-desmethylnaproxen, has been shown to interfere with the Jendrassik-Grof method for measuring Total Bilirubin. Performed By: #### T PO, C3, CHROMATIN, C4, THYGLOB AB, CH50, ROSS #### [facility] , Calcium [Mass/Vol] 9.5 mg/dL Normal 8.6-10.3 [facility] Comment on above: Performed By: #### T PO, C3, CHROMATIN, C4, THYGLOB AB, CH50, ROSS #### [facility] , Chloride [Moles/Vol] 104 mmol/L Normal 98-107 [facility] Comment on above: Performed By: #### T PO, C3, CHROMATIN, C4, THYGLOB AB, CH50, ROSS #### [facility] , CO2 [Moles/Vol] 29.5 mmol/L Normal 21.0-31.0 [facility] Comment on above: Performed By: #### T PO, C3, CHROMATIN, C4, THYGLOB AB, CH50, ROSS #### [facility] , Creatinine [Mass/Vol] 0.73 mg/dL Normal 0.60-1.20 [facility] Comment on above: Performed By: #### T PO, C3, CHROMATIN, C4, THYGLOB AB, CH50, ROSS #### [facility] , GFR/1.73 sq M.predicted MDRD (S/P/Bld) [Vol rate/Area] mL/min/{1.73_m2} Normal [facility] Comment on above: Performed By: #### T PO, C3, CHROMATIN, C4, THYGLOB AB, CH50, ROSS #### [facility] , Globulin (S) [Mass/Vol] 2.3 g/dL Normal [facility] Comment on above: Performed By: #### T PO, C3, CHROMATIN, C4, THYGLOB AB, CH50, ROSS #### [facility] , Glucose [Mass/Vol] 79 mg/dL Normal 70-100 [facility] Comment on above: Result Comment: [place] Glucose Reference Range is dependent on time and content of last meal. Glucose of more than 200 mg/dL in a nonstressed, ambulatory subject supports the diagnosis of Diabetes Mellitus. ADA recommended reference range Performed By: #### T PO, C3, CHROMATIN, C4, THYGLOB AB, CH50, ROSS #### [facility] , Potassium [Moles/Vol] 3.7 mmol/L Normal 3.5-5.1 [facility] Comment on above: Performed By: #### T PO, C3, CHROMATIN, C4, THYGLOB AB, CH50, ROSS #### [facility] , Protein [Mass/Vol] 7.0 g/dL Normal 6.4-8.9 [facility] Comment on above: Performed By: #### T PO, C3, CHROMATIN, C4, THYGLOB AB, CH50, ROSS #### [facility] , Sodium [Moles/Vol] 139 mmol/L Normal 136-145 [facility] Comment on above: Performed By: #### T PO, C3, CHROMATIN, C4, THYGLOB AB, CH50, ROSS #### [facility] , Urea nitrogen [Mass/Vol] 9 mg/dL Normal 7-25 [facility] Comment on above: Performed By: #### T PO, C3, CHROMATIN, C4, THYGLOB AB, CH50, ROSS #### [facility] , Creatine Kinaseon 02-01-2025 CK [Catalytic activity/Vol] 77 U/L Normal 30-223 [facility] Comment on above: Result Comment: PERF ORMED BY: [facility] [address] [place] [address] PATHOLOGIST CORPORATE SALES REPRESENTATIVE NADYA FREDERICK M.D. Performed By: #### T PO, C3, CHROMATIN, C4, THYGLOB AB, CH50, ROSS #### [facility] , Creatine kinase [Enzymatic a ctivity/volume] in Serum or PlasmaOrdered By: Carol Vidal on 02-01-2025 CK [Catalytic activity/Vol] Creatine kinase [Enzymatic activity/volume] in Serum or Plasma 30-223 [facility] Creatinine [Mass/volume] in Serum or PlasmaOrdered By: Carol Vidal on 02-01-2025 Creatinine [Mass/Vol] Creatinine [Mass/v olume] in Serum or Plasma 0.60-1.20 [facility] Dipstick and Microscopicon 0 02-01-2025 Appearance (U) Clear Normal Clear [facility] Comment on above: Order Comment: Name Collection Type:: Clean-Voided Midstream Performed By: #### T PO, C3, CHROMATIN, C4, THYGLOB AB, CH50, ROSS #### [facility] , Bacteria,Urine None Seen Normal None Seen [facility] Comment on above: Order Comment: Name Collection Type:: Clean-Voided Midstream Performed By: #### T PO, C3, CHROMATIN, C4, THYGLOB AB, CH50, ROSS #### [facility] , Bilirubin,Urine Negative Normal Negative [facility] Comment on above: Order Comment: Name Collection Type:: Clean-Voided Midstream Performed By: #### T PO, C3, CHROMATIN, C4, THYGLOB AB, CH50, ROSS #### [facility] , Color (U) Yellow Normal Yellow [facility] Comment on above: Order Comment: Name Collection Type:: Clean-Voided Midstream Performed By: #### T PO, C3, CHROMATIN, C4, THYGLOB AB, CH50, ROSS #### [facility] , Glucose Ql (U) Normal Normal Normal [facility] Comment on above: Order Comment: Name Collection Type:: Clean-Voided Midstream Performed By: #### T PO, C3, CHROMATIN, C4, THYGLOB AB, CH50, ROSS #### [facility] , Hyaline Casts,Urine None Normal 0-8 [facility] Comment on above: Order Comment: Name Collection Type:: Clean-Voided Midstream Performed By: #### T PO, C3, CHROMATIN, C4, THYGLOB AB, CH50, ROSS #### [facility] , Ketones Ql (U) Negative Normal Negative [facility] Comment on above: Order Comment: Name Collection Type:: Clean-Voided Midstream Performed By: #### T PO, C3, CHROMATIN, C4, THYGLOB AB, CH50, ROSS #### [facility] , Leukocyte esterase Test strip Ql (U) Negative Normal Negative [facility] Comment on above: Order Comment: Name Collection Type:: Clean-Voided Midstream Performed By: #### T PO, C3, CHROMATIN, C4, THYGLOB AB, CH50, ROSS #### [facility] , Mucus,Urine 3+ Critically abnormal [facility] Comment on above: Order Comment: Name Collection Type:: Clean-Voided Midstream Result Comment: PERF ORMED BY: [place] [address] [place] [address] PATHOLOGIST CORPORATE SALES REPRESENTATIVE NADYA FREDERICK M.D. Performed By: #### T PO, C3, CHROMATIN, C4, THYGLOB AB, CH50, ROSS #### [facility] , Nitrite,Urine Negative Normal Negative [facility] Comment on above: Order Comment: Name Collection Type:: Clean-Voided Midstream Performed By: #### T PO, C3, CHROMATIN, C4, THYGLOB AB, CH50, ROSS #### [facility] , Occult Blood,Urine Negative Normal Negative [facility] Comment on above: Order Comment: Name Collection Type:: Clean-Voided Midstream Performed By: #### T PO, C3, CHROMATIN, C4, THYGLOB AB, CH50, ROSS #### [facility] , pH (U) 6.0 [pH] Normal 5.0-9.0 [facility] Comment on above: Order Comment: Name Collection Type:: Clean-Voided Midstream Performed By: #### T PO, C3, CHROMATIN, C4, THYGLOB AB, CH50, ROSS #### [facility] , Protein,Urine Trace High Negative [facility] Comment on above: Order Comment: Name Collection Type:: Clean-Voided Midstream Performed By: #### T PO, C3, CHROMATIN, C4, THYGLOB AB, CH50, ROSS #### [facility] , RBC,Urine 1-2 Normal 0-4 [facility] Comment on above: Order Comment: Name Collection Type:: Clean-Voided Midstream Performed By: #### T PO, C3, CHROMATIN, C4, THYGLOB AB, CH50, ROSS #### [facility] , Specificy [place],Urine 1.021 Normal 1.001-1.03 0 [facility] Comment on above: Order Comment: Name Collection Type:: Clean-Voided Midstream Performed By: #### T PO, C3, CHROMATIN, C4, THYGLOB AB, CH50, ROSS #### [facility] , Squamous Epithelial Cell,Urine 1-2 Normal 0-2 [facility] Comment on above: Order Comment: Name Collection Type:: Clean-Voided Midstream Performed By: #### T PO, C3, CHROMATIN, C4, THYGLOB AB, CH50, ROSS #### [facility] , Urobilinogen,Urine Normal Normal Normal [facility] Comment on above: Order Comment: Name Collection Type:: Clean-Voided Midstream Performed By: #### T PO, C3, CHROMATIN, C4, THYGLOB AB, CH50, ROSS #### [facility] , WBC,Urine 3-4 Normal 0-4 [facility] Comment on above: Order Comment: Name Collection Type:: Clean-Voided Midstream Performed By: #### T PO, C3, CHROMATIN, C4, THYGLOB AB, CH50, ROSS #### [facility] , Eosinophils Auto (Bld) [#/Vo l]Ordered By: Carol Vidal on 02-01-2025 Eosinophils (Bld) [#/Vol] Automated eosinophil count 0.0-0.45 [facility] Eosinophils/100 WBC Auto (Bl d)Ordered By: Carol Vidal on 02-01-2025 Eosinophils/100 WBC (Bld) Automated eosinophil % . [facility] Epithelial cells.squamous [# /area] in Urine sediment by Automated countOrdered By: Carol Vidal on 02-01-2025 Epithelial cells.squamous Auto (Urine sed) [#/Area] Epithelial cells.squamous [#/area] in Urine sediment by Automated count 0-2 [facility] Erythrocyte Sedimentation Ra doroteo 02-01-2025 ESR (Bld) [Velocity] 8 mm/h Normal 0-19 [facility] Comment on above: Result Comment: PERF ORMED BY: [facility] [address] [place] [address] PATHOLOGIST CORPORATE SALES REPRESENTATIVE NADYA FREDERICK M.D. Performed By: #### T PO, C3, CHROMATIN, C4, THYGLOB AB, CH50, ROSS #### [facility] , Erythrocyte distribution wid th Auto (RBC) [Ratio]Ordered By: Carol Vidal on 02-01-2025 Erythrocyte distribution width (RBC) [Ratio] Erythrocyte distribution width [Ratio] by Automated count 11.9-15.3 [facility] Erythrocyte sedimentation ra te by Photometric methodOrdered By: Carol Vidal on 02-01-2025 ESR Photometric method (Bld) [Velocity] Erythrocyte sedimentation rate by Photometric method 0-19 [facility] Erythrocytes [#/area] in Uri ne sediment by Automated countOrdered By: Carol Vidal on 02-01-2025 RBC Auto (Urine sed) [#/Area] Erythrocytes [#/area] in Urine sediment by Automated count 0-4 [facility] Free T4 (Free Thyroxine)on 0 02-01-2025 Free T4 [Mass/Vol] 0.96 ng/dL Normal 0.61-1.12 [facility] Comment on above: Performed By: #### T PO, C3, CHROMATIN, C4, THYGLOB AB, CH50, ROSS #### [facility] , Globulin Calc (S) [Mass/Vol] Ordered By: Carol Vidal on 02-01-2025 Globulin (S) [Mass/Vol] Serum globulin measurement by calculation (mass/volume) [facility] Glucose [Mass/volume] in Ser um or PlasmaOrdered By: Carol Vidal on 02-01-2025 Glucose [Mass/Vol] Glucose [Mass/volume ] in Serum or Plasma 70-100 [facility] Comment on above: ADA recommended refe rence rangeRandom Glucose Reference Range is dependent on time and content of last meal. Glucose of more than 200 mg/dL in a nonstressed, ambulatory subject supports the diagnosis of Diabetes Mellitus. Glucose [Mass/volume] in Uri ne by Test stripOrdered By: Carol Vidal on 02-01-2025 Glucose Test strip (U) [Mass/Vol] Glucose [Mass/volume] in Urine by Test strip Normal [facility] Hematocrit Auto (Bld) [Volum e fraction]Ordered By: Carol Vidal on 02-01-2025 Hematocrit (Bld) [Volume fraction] Hematocrit [Volume Fraction] of Blood by Automated count 34.0-46.4 [facility] Hemoglobin Test strip Ql (U) Ordered By: Carol Vidal on 02-01-2025 Hemoglobin Ql (U) Hemoglobin [Presence ] in Urine by Test strip Negative [facility] Hemoglobin [Mass/volume] in BloodOrdered By: Craol Vidal on 02-01-2025 Hemoglobin (Bld) [Mass/Vol] Hemoglobin [Mass/volume] in Blood 11.8-15.4 [facility] Hyaline casts [#/area] in Ur ine sediment by Automated countOrdered By: Carol Vidal on 02-01-2025 Hyaline casts Auto (Urine sed) [#/Area] Hyaline casts [#/area] in Urine sediment by Automated count 0-8 [facility] INR in Platelet poor plasma by Coagulation assayOrdered By: Carol Viadl on 02-01-2025 INR Coag (PPP) [Relative time] INR in Platelet poor plasma by Coagulation assay [facility] Comment on above: INR Therapeutic Rang e A) Pre- and Peroperative OAT started two weeks before surgery. NOT HIP SURGERY: 1.5 - 2.5 HIP SURGERY: 2 - 3B) Primary and secondary prevention of venous THROMBOSIS: 2 - 3C) Active venous thrombosis, pulmonary embolismand prevention of recurrent venous thrombosis: 2 - 3D) Prevention of arterial thromboembolismincluding patients with mechanical heart valves: 3 - 4.5 Immunofixation, (ASHLEY), Urine on 02-01-2025 Immunofixation, (ASHLEY), Urine Comment Normal . [facility] Comment on above: Result Comment: No m onoclonality detected. Performed at: [facility] [address] [id number] Patient Portal Representative: Bowen Mcleod PhD, Phone: [phone] Performed By: #### T PO, C3, CHROMATIN, C4, THYGLOB AB, CH50, ROSS #### [facility] , Immunofixation,Serumon 02-01 Immunofixation, Serum Comment Normal . [facility] Comment on above: Result Comment: No m onoclonality detected. Performed By: #### T PO, C3, CHROMATIN, C4, THYGLOB AB, CH50, ROSS #### [facility] , Immunoglobulin A, Serum 201 mg/dL Normal 87-352 [facility] Comment on above: Performed By: #### T PO, C3, CHROMATIN, C4, THYGLOB AB, CH50, ROSS #### [facility] , Immunoglobulin G 983 mg/dL Normal 586-1602 [facility] Comment on above: Performed By: #### T PO, C3, CHROMATIN, C4, THYGLOB AB, CH50, ROSS #### [facility] , Immunoglobulin M, Serum 75 mg/dL Normal 26-217 [facility] Comment on above: Result Comment: Perf ormed at: [facility] [address] [id number] Patient Portal Representative: Bowen Mcleod PhD, Phone: [phone] Performed By: #### T PO, C3, CHROMATIN, C4, THYGLOB AB, CH50, ROSS #### [facility] , Ketones Test strip Ql (U)Ord ered By: Carol Stewartrow on 02-01-2025 Ketones Ql (U) Ketones [Presence] i n Urine by Test strip Negative [facility] Leukocyte esterase [Presence ] in Urine by Test stripOrdered By: Carol Vidal on 02-01-2025 Leukocyte esterase Test strip Ql (U) Leukocyte esterase [Presence] in Urine by Test strip Negative [facility] Leukocytes [#/area] in Urine sediment by Automated countOrdered By: Carol Vidal on 02-01-2025 WBC Auto (Urine sed) [#/Area] Leukocytes [#/area] in Urine sediment by Automated count 0-4 [facility] Leukocytes [#/volume] correc radha for nucleated erythrocytes in Blood by Automated counOrdered By: Carol Vidal on 02-01-2025 WBC corrected for nucl RBC Auto (Bld) [#/Vol] Leukocytes [#/volume] corrected for nucleated erythrocytes in Blood by Automated coun 3.8-11.6 [facility] Lupus Anticoagulant Compon 0 02-01-2025 Dilute Prothrombin Time (dPt) 38.3 Normal 0.0-47.6 [facility] Comment on above: Performed By: #### L UPANTCOAG #### [facility] , dPT Confirm Ratio 0.76 Normal 0.00-1.34 [facility] Comment on above: Performed By: #### L UPANTCOAG #### [facility] , DRVVT Lupus 34.4 Normal 0.0-47.0 [facility] Comment on above: Performed By: #### L UPANTCOAG #### [facility] , Interpretation Comment: Normal . [facility] Comment on above: Result Comment: No l upus anticoagulant was detected. Performed at: [address] [id number] Patient Portal Representative: Raegan Gong MD, Phone: [phone] PERFORMED BY: [facility] [place] [address] PATHOLOGIST CORPORATE SALES REPRESENTATIVE NADYA FREDERICK M.D. Performed By: #### L UPANTCOAG #### [facility] , PTT-LA 42.7 Normal 0.0-43.5 [facility] Comment on above: Performed By: #### L UPANTCOAG #### [facility] , Thrombin Time 14.6 Normal 0.0-23.0 [facility] Comment on above: Performed By: #### L UPANTCOAG #### [facility] , Lymphocytes Auto (Bld) [#/Vo l]Ordered By: Carol Vidal on 02-01-2025 Lymphocytes (Bld) [#/Vol] Lymphocytes [#/volume] in Blood by Automated count 1.00-4.8 [facility] Lymphocytes/100 WBC Auto (Bl d)Ordered By: Carol Vidal on 02-01-2025 Lymphocytes/100 WBC (Bld) Lymphocytes/100 leukocytes in Blood by Automated count . [facility] MCH Auto (RBC) [Entitic mass ]Ordered By: Carol Vidal on 02-01-2025 MCH (RBC) [Entitic mass] MCH [Entitic mass] by Automated count 24.7-34.3 [facility] MCHC Auto (RBC) [Mass/Vol]Or dered By: Carol Vidal on 02-01-2025 MCHC (RBC) [Mass/Vol] MCHC [Mass/volume] by Automated count 32.0-35.0 [facility] MCV Auto (RBC) [Entitic vol] Ordered By: Carol Vidal on 02-01-2025 MCV (RBC) [Entitic vol] MCV [Entitic volume] by Automated count 80-100 [facility] Monocytes Auto (Bld) [#/Vol] Ordered By: Carol Vidal on 02-01-2025 Monocytes (Bld) [#/Vol] Automated blood monocyte count 0.0-0.8 [facility] Monocytes/100 WBC Auto (Bld) Ordered By: Carol Vidal on 02-01-2025 Monocytes/100 WBC (Bld) Automated monocyte % . [facility] Mucus [Presence] in Urine by AutomatedOrdered By: Carol Vidal on 02-01-2025 Mucus Auto Ql (U) Mucus [Presence] in Urine by Automated Abnormal [facility] Neutrophils Auto (Bld) [#/Vo l]Ordered By: Carol Vidal on 02-01-2025 Neutrophils (Bld) [#/Vol] Neutrophils [#/volume] in Blood by Automated count 1.8-7.7 [facility] Neutrophils/100 WBC Auto (Bl d)Ordered By: Carol Vidal on 02-01-2025 Neutrophils/100 WBC (Bld) Automated neutrophil % . [facility] Nitrite Test strip Ql (U)Ord ered By: Carol Vidal on 02-01-2025 Nitrite Ql (U) Nitrite [Presence] i n Urine by Test strip Negative [facility] No Panel InformationOrdered By: Carol Vidal on 02-01-2025 Estimated GFR (CKD-EPI) > 60.0 mL/Min [facility] Creatinine Clearance (Chem N/A [facility] Nucleated erythrocytes [Pres ence] in Blood by Automated countOrdered By: Carol Vidal on 02-01-2025 Nucleated RBC Auto Ql (Bld) Nucleated erythrocytes [Presence] in Blood by Automated count 0-0.5 [facility] Platelet mean volume Auto (B ld) [Entitic vol]Ordered By: Carol Vidal on 02-01-2025 Platelet mean volume (Bld) [Entitic vol] Platelet mean volume [Entitic volume] in Blood by Automated count 6.3-10.7 [facility] Platelets Auto (Bld) [#/Vol] Ordered By: Carol Vidal on 02-01-2025 Platelets (Bld) [#/Vol] Platelets [#/volume] in Blood by Automated count 150-450 [facility] Potassium [Moles/volume] in Serum or PlasmaOrdered By: Carol Vidal on 02-01-2025 Potassium [Moles/Vol] Potassium [Moles/v olume] in Serum or Plasma 3.5-5.1 [facility] Protein Electro, Random Urin michael 02-01-2025 Albumin, Urine 41.6 % Normal . [facility] Comment on above: Performed By: #### T PO, C3, CHROMATIN, C4, THYGLOB AB, CH50, ROSS #### [facility] , Rixml-2-Qxykomlo, Urine 1.3 % Normal . [facility] Comment on above: Performed By: #### T PO, C3, CHROMATIN, C4, THYGLOB AB, CH50, ROSS #### [facility] , Nxwqs-4-Gdmtfqoo, Urine 22.3 % Normal . [facility] Comment on above: Performed By: #### T PO, C3, CHROMATIN, C4, THYGLOB AB, CH50, ROSS #### [facility] , Beta Globulin, Urine 24.6 % Normal . [facility] Comment on above: Performed By: #### T PO, C3, CHROMATIN, C4, THYGLOB AB, CH50, ROSS #### [facility] , Gamma Globulin, Urine 10.1 % Normal . [facility] Comment on above: Performed By: #### T PO, C3, CHROMATIN, C4, THYGLOB AB, CH50, ROSS #### [facility] , M-Saleem % Not Observed Normal Not Observed [facility] Comment on above: Performed By: #### T PO, C3, CHROMATIN, C4, THYGLOB AB, CH50, ROSS #### [facility] , Please Note: Comment Normal . [facility] Comment on above: Result Comment: Prot ein electrophoresis scan will follow via computer, mail, or behavior clinician delivery. PERFORMED BY: [address] [place] [address] PATHOLOGIST CORPORATE SALES REPRESENTATIVE NADYA FREDERICK M.D. Performed By: #### T PO, C3, CHROMATIN, C4, THYGLOB AB, CH50, ROSS #### [facility] , Protein (U) [Mass/Vol] 23.9 mg/dL Normal Not Estab. Th e [facility] Comment on above: Performed By: #### T PO, C3, CHROMATIN, C4, THYGLOB AB, CH50, ROSS #### [facility] , Protein Electrophoresis, Ser umon 02-01-2025 Albumin [Mass/Vol] 4.2 g/dL Normal 2.9-4.4 [facility] Comment on above: Performed By: #### T PO, C3, CHROMATIN, C4, THYGLOB AB, CH50, ROSS #### [facility] , Albumin/Globulin [Mass ratio] 1.6 {ratio} Normal 0.7-1.7 [facility] Comment on above: Performed By: #### T PO, C3, CHROMATIN, C4, THYGLOB AB, CH50, ROSS #### [facility] , Jrxwp-7-Xgglrqnt 0.2 g/dL Normal 0.0-0.4 [facility] Comment on above: Performed By: #### T PO, C3, CHROMATIN, C4, THYGLOB AB, CH50, ROSS #### [facility] , Imdiq-2-Jcaehfsm 0.6 g/dL Normal 0.4-1.0 [facility] Comment on above: Performed By: #### T PO, C3, CHROMATIN, C4, THYGLOB AB, CH50, ROSS #### [facility] , Beta Globulin 1.0 g/dL Normal 0.7-1.3 [facility] Comment on above: Performed By: #### T PO, C3, CHROMATIN, C4, THYGLOB AB, CH50, ROSS #### [facility] , Gamma Globulin 0.8 g/dL Normal 0.4-1.8 [facility] Comment on above: Performed By: #### T PO, C3, CHROMATIN, C4, THYGLOB AB, CH50, ROSS #### [facility] , Globulin (S) [Mass/Vol] 2.6 g/dL Normal 2.2-3.9 [facility] Comment on above: Performed By: #### T PO, C3, CHROMATIN, C4, THYGLOB AB, CH50, ROSS #### [facility] , M-Saleem Not Observed Normal Not Observed [facility] Comment on above: Performed By: #### T PO, C3, CHROMATIN, C4, THYGLOB AB, CH50, ROSS #### [facility] , Protein [Mass/Vol] 6.8 g/dL Normal 6.0-8.5 [facility] Comment on above: Performed By: #### T PO, C3, CHROMATIN, C4, THYGLOB AB, CH50, ROSS #### [facility] , SPE-Note Comment Normal . [facility] Comment on above: Result Comment: Prot ein electrophoresis scan will follow via computer, mail, or behavior clinician delivery. Performed at: [address] [id number] Patient Portal Representative: Bowen Mcleod PhD, Phone: [phone] PERFORMED BY: [place] [id number] PATHOLOGIST CORPORATE SALES REPRESENTATIVE NADYA FREDERICK M.D. Performed By: #### T PO, C3, CHROMATIN, C4, THYGLOB AB, CH50, ROSS #### [facility] , Protein Test strip (U) [Mass /Vol]Ordered By: Carol Vidal on 02-01-2025 Protein (U) [Mass/Vol] Protein [Mass/vol ume] in Urine by Test strip High Negative [facility] Protein [Mass/volume] in Ser um or PlasmaOrdered By: Carol Vidal on 02-01-2025 Protein [Mass/Vol] Protein [Mass/volume ] in Serum or Plasma 6.4-8.9 [facility] Prothrombin time (PT)Ordered By: Carol Vidal on 02-01-2025 PT Coag (PPP) [Time] Prothrombin time (PT) 9.0- 12.9 [facility] Comment on above: A hematocrit value g reater than 55% may lead to inaccurate results in coagulation testing. Patients having hematocrit values >55% require a special collection tube for coagulation studies. Please contact the laboratory at [phone] for redraw instructions. RBC Auto (Bld) [#/Vol]Ordere d By: Carol Vidal on 02-01-2025 RBC (Bld) [#/Vol] Erythrocytes [#/volu me] in Blood by Automated count 3.60-5.00 [facility] RPR w/rfx to Quant TP Abson 02-01-2025 RPR, Rfx Quant RPR Non-Reactive Normal Non Reactive [facility] Comment on above: Result Comment: Perf ormed at: [facility] [address] [id number] Patient Portal Representative: Bowen Mcleod PhD, Phone: [phone] PERFORMED BY: [facility] [address] [place] [address] PATHOLOGIST CORPORATE SALES REPRESENTATIVE NADYA FREDERICK M.D. Performed By: #### T PO, C3, CHROMATIN, C4, THYGLOB AB, CH50, ROSS #### [facility] , Serum or plasma albumin/glob ulin mass ratioOrdered By: Carol Vidal on 02-01-2025 Albumin/Globulin [Mass ratio] Serum or plasma albumin/globulin mass ratio [facility] Serum or plasma anion gap de terminationOrdered By: Carol Vidal on 02-01-2025 Anion gap [Moles/Vol] Serum or plasma an ion gap determination 6.0-15.0 [facility] Sodium [Moles/volume] in Ser um or PlasmaOrdered By: Carol Vidal on 02-01-2025 Sodium [Moles/Vol] Sodium [Moles/volume ] in Serum or Plasma 136-145 [facility] Specific gravity Test strip (U) [Rel density]Ordered By: Carol Vidal on 02-01-2025 Specific gravity (U) [Rel density] Specific gravity of Urine by Test strip 1.001-1.03 0 [facility] Thyroid Peroxidase Antibodie son 02-01-2025 Thyroid Peroxidase Antibodies 13 [IU]/mL Normal 0-34 [facility] Comment on above: Result Comment: Perf ormed at: [facility] [id number] Patient Portal Representative: Bowen Mcleod PhD, Phone: [phone] Performed By: #### T PO, C3, CHROMATIN, C4, THYGLOB AB, CH50, ROSS #### [facility] , Thyroid Stimulating Hormoneo n 02-01-2025 TSH Qn 2.21 m[IU]/L Normal 0.45-5.33 [facility] Comment on above: Result Comment: PERF ORMED BY: [facility] [address] [place] [address] PATHOLOGIST CORPORATE SALES REPRESENTATIVE NADYA FREDERICK M.D. Performed By: #### T PO, C3, CHROMATIN, C4, THYGLOB AB, CH50, ROSS #### [facility] , Thyrotropin [Units/volume] i n Serum or PlasmaOrdered By: Carol Vidal on 02-01-2025 TSH Qn Thyrotropin [Units/v olume] in Serum or Plasma 0.45-5.33 [facility] Thyroxine (T4) free [Mass/vo lume] in Serum or PlasmaOrdered By: Carol Vidal on 02-01-2025 Free T4 [Mass/Vol] Thyroxine (T4) free [Mass/volume] in Serum or Plasma 0.61-1.12 [facility] Urea nitrogen [Mass/volume] in Serum or PlasmaOrdered By: Carol Vidal on 02-01-2025 Urea nitrogen [Mass/Vol] Urea nitrogen [Mass/volume] in Serum or Plasma 7-25 [facility] Urobilinogen Test strip (U) [Mass/Vol]Ordered By: Carol Vidal on 02-01-2025 Urobilinogen (U) [Mass/Vol] Urobilinogen [Mass/volume] in Urine by Test strip Normal [facility] WBC Auto (Bld) [#/Vol]Ordere d By: Carol Vidal on 02-01-2025 WBC (Bld) [#/Vol] Leukocytes [#/volume ] in Blood by Automated count 3.8-11.6 [facility] aPTT in Platelet poor plasma by Coagulation assayOrdered By: Carol Vidal on 02-01-2025 aPTT Coag (PPP) [Time] Activated partial thromboplastin time (aPTT) in platelet poor plasma by coagulation a 25.1-36.5 [facility] Comment on above: A hematocrit value g reater than 55% may lead to inaccurate results in coagulation testing. Patients having hematocrit values >55% require a special collection tube for coagulation studies. Please contact the laboratory at [phone] for redraw instructions. pH Test strip (U)Ordered By: Carol Vidal on 02-01-2025 pH (U) pH of Urine by Test strip 5.0-9.0 [facility] IGP,APTIMA HPV,AGE GDLNon AGE GDLN ACOG TESTING Note . [facility] Comment on above: TESTS RESULT FLAG UN ITS REF RANGE LAB Clinician Provided Cytology Information Source.............Vagina No. of containers..01 ThinPrep Vial Age Algo ACOG Mya... 01 FLAG LEGEND: L-Low Normal,H-High Normal,LL-Alert Low,HH-Alert High <-Panic Low,>-Panic High,A-Abnormal,AA-Critical Abnormal Performed at: 01 =[facility] [place] [address] Britta Wang MD, HPV APTIMA Negative Negative [facility] Comment on above: This nucleic acid am plification test detects fourteen high- risk HPV types (16,18,31,33,35,39,45,51,52,56,58,59,66,68) without differentiation. Performed at: =G - [facility] [id number] Patient Portal Representative: Britta Wang MD, Phone: [phone] Performed at: [facility] [address] [place], [place] [id number] Patient Portal Representative: Kristian Waterman MD, Phone: [phone] IGP, APTIMA HPV, RFX 16/18,45 Note . [facility] Comment on above: TESTS RESULT FLAG U NITS REF RANGE LAB DIAGNOSIS: 02 NEGATIVE FOR INTRAEPITHELIAL LESION OR MALIGNANCY. FUNGAL ORGANISMS MORPHOLOGICALLY CONSISTENT WITH VIVIANE SPECIES ARE PRESENT. Specimen adequacy: 02 Satisfactory for evaluation. Endocervical and/or squamous metaplastic cells (endocervical component) are present. Performed by: Roberto Saenz, Informatics Developer ([facility]) . 02 Note: Note 03 The Pap [...] High,A-Abnormal,AA-Critical Abnormal Performed at: 02 K[facility] [place] [facility] [address] [place] [address] Kristian Waterman MD, 03 WB [facility] [address] [address] Britta Wang MD, SPATULA-ALONE [facility] Gastroenterology Office/Clin ic Noteon 11-01-2024 Gastroenterology Office/Clinic Note Gastroenterology Office/Clinic Note HPI Staff Patient is a 49 year old female who was referred by Dr Mccarty for elevated LFTs. LFTs did improve after being repeated a week later. previous EGD/ Colonoscopy - Friday, done at [facility] with Dr. Coker blood thinners- 325 daily [...] wisdom to (more content not included)... Normal [facility] Comment on above: Result Comment: Elec tronically Signed By: Delaney BURK, Vinayak Jimenez\.br\Date and Time Signed: 11/01/24 14:36 EST H PYLORI SCREENon 10-27-2024 H. pylori Org specific cx Ql (Sara fld) Negative Normal NEG [facility] Comment on above: Performed By: #### 4 4015-6 #### [facility] ([id number]) [address] [place] [address], [address] [place] [address] Surgical Pathologyon 024 Surgical Pathology Normal [facility] Comment on above: Result Comment: [facility] [address] [place] [address] Surgical Pathology Consultation ADDENDUM ND Patient Name:HORACIO KEATING:1975 (Age: 49)Gender:FTaken:4Reported:11/05/2024hysician(s):Willa Coker MD ([phone])Copy To: Rec. #:[id number]: #[id number] Final Pathologic Diagnosis 1. Antrum biopsy: Mild [...] data is suggested. Report Electronically Signed Out wak/11/05/2024Smith Clark MD Addendum ([facility]) Date Reported: 11/09/2024 In specimen part 1, immunohistochemistry (with appropriate controls) for Helicobacter pylori organisms is NEGATIVE. Electronically Signed Out Smith Clark MD Interpretation performed at [facility], [address] [place] [address], License number: [id number]. Clinical History Positive fecal occult blood Gross Description 1. Received in formalin labeled rocky KEATINGrum are two pink-julian soft tissue bits, 0.1 and 0.3 cm in greatest dimension. The specimens are filtered and submitted entirely in a single cassette. (1, ns, [id number], m8) YEISON 2. Received in formalin labeled KEATING, appendiceal are three pink-julian soft tissue bits and strips, 0.3, 0.3, and 0.6 cm in greatest dimension. The specimens are filtered and submitted entirely in a single cassette. (1, ns, [id number], m8) YEISON vaz/10/29/2024GR Specimen(s) Received 1: Antrum biopsy 2: Appendiceal orifice Fee Codes(s): 1; 42922, 59106 2; 48761 Basic Metabolic Panelon 08-03 GFR/1.73 sq M.predicted MDRD (S/P/Bld) [Vol rate/Area] mL/min/{1.73_m2} Normal [facility] Comment on above: Performed By: #### B MP, LIPID #### [place] [address] [place] Calcium [Mass/volume] in Ser um or PlasmaOrdered By: Dedrick Fuller on 08-30-2024 Calcium [Mass/Vol] 9.9 mg/dL Normal 8.6-10.3 [facility] Comment on above: Performed By: #### B MP, LIPID #### [place] [id number] [place] Carbon dioxide, total [Moles /volume] in Serum or PlasmaOrdered By: Dedrick Fuller on 08-30-2024 CO2 [Moles/Vol] 26.6 mmol/L Normal 21.0-31.0 [facility] Comment on above: Performed By: #### B MP, LIPID #### [facility] [address] [place] [address] [place] Chloride [Moles/volume] in S altagracia or PlasmaOrdered By: Dedrick Fuller on 08-30-2024 Chloride [Moles/Vol] 104 mmol/L Normal 98-107 [facility] Comment on above: Performed By: #### B MP, LIPID #### [facility] [address] [place] [id number] [place] Cholesterol [Mass/volume] in Serum or PlasmaOrdered By: Dedrick Fuller on 08-30-2024 Cholesterol [Mass/Vol] 218 mg/dL High 140-200 [facility] Comment on above: Chol less than 200 m g/dl low riskChol 201-239 mg/dl borderline riskChol 240 mg/dl and greater high risk Result Comment: Chol less than 200 mg/dl low risk Chol 201-239 mg/dl borderline risk Chol 240 mg/dl and greater high risk Performed By: #### B MP, LIPID #### [facility] [address] [place] [id number] [facility] Cholesterol in LDL Calc [Mas s/Vol]Ordered By: Dedrick Fuller on 08-30-2024 Cholesterol in LDL [Mass/Vol] 134 mg/dL High 0-100 [facility] Comment on above: LDL ATP III CLASSIFI CATIONLDL less than 100 mg/dL OptimalLDL 100-129 mg/dL Near or above optimalLDL 130-159 mg/dL Borderline highLDL 160-189 mg/dL HighLDL greater than 189 mg/dL Very high Cholesterol in VLDL Calc [Ma ss/Vol]Ordered By: Dedrick Fuller on 08-30-2024 Cholesterol in VLDL [Mass/Vol] 46 mg/dL [facility] Creatinine [Mass/volume] in Serum or PlasmaOrdered By: Dedrick Fuller on 08-30-2024 Creatinine [Mass/Vol] 0.75 mg/dL Normal 0.60-1.20 [facility] Comment on above: Performed By: #### B MP, LIPID #### [facility] [address] [place] [id number] [place] Glucose [Mass/volume] in Ser um or PlasmaOrdered By: Dedrick Fuller on 08-30-2024 Glucose [Mass/Vol] 95 mg/dL Normal 70-100 [facility] Comment on above: ADA recommended refe rence rangeRandom Glucose Reference Range is dependent on time and content of last meal. Glucose of more than 200 mg/dL in a nonstressed, ambulatory subject supports the diagnosis of Diabetes Mellitus. Result Comment: [place] om Glucose Reference Range is dependent on time and content of last meal. Glucose of more than 200 mg/dL in a nonstressed, ambulatory subject supports the diagnosis of Diabetes Mellitus. ADA recommended reference range Performed By: #### B MP, LIPID #### [facility] [address] Lipid Panelon 08-30-2024 LDL Cholesterol,Calculated 134 mg/dL High 0-100 [facility] Comment on above: Result Comment: LDL ATP III CLASSIFICATION LDL less than 100 mg/dL Optimal LDL 100-129 mg/dL Near or above optimal LDL 130-159 mg/dL Borderline high LDL 160-189 mg/dL High LDL greater than 189 mg/dL Very high Performed By: #### B MP, LIPID #### [facility] [address] Triglyceride w/Reflex 231 mg/dL High 0-149 [facility] Comment on above: Result Comment: TRIG ATP III CLASSIFICATION TRIG less than 150 mg/dL Normal TRIG 150-199 mg/dL Borderline high TRIG 200-500 mg/dL High TRIG greater than 500 mg/dL Very high Standard traceable to the Center for Disease Conrtrol and Prevention (CDC) test method. Performed By: #### B MP, LIPID #### [address] VLDL CHOLESTEROL 46 mg/dL Normal [facility] Comment on above: Performed By: #### B MP, LIPID #### [address] No Panel InformationOrdered By: Dedrick Fuller on 08-30-2024 Estimated GFR (CKD-EPI) > 60.0 mL/Min [facility] Creatinine Clearance (Chem N/A [facility] Potassium [Moles/volume] in Serum or PlasmaOrdered By: Dedrick Fuller on 08-30-2024 Potassium [Moles/Vol] 4.1 mmol/L Normal 3.5-5.1 [facility] Comment on above: Performed By: #### B MP, LIPID #### [address] Serum or plasma anion gap de terminationOrdered By: Dedrick Fuller on 08-30-2024 Anion gap [Moles/Vol] 13.5 mmol/L Normal 6.0-15.0 [facility] Comment on above: Performed By: #### B MP, LIPID #### [facility] [address] Serum or plasma high density lipoprotein (HDL) cholesterol measurementOrdered By: Dedrick Fuller on 08-30-2024 Cholesterol in HDL [Mass/Vol] 38 mg/dL Normal 23-92 [facility] Comment on above: HDL CHOL ATP-III CLA SSIFICATION Cardiovascular RiskHDL > or equal to 60 mg/dL LOWHDL < 40 mg/dL HIGH Result Comment: HDL CHOL ATP-III CLASSIFICATION Cardiovascular Risk HDL > or equal to 60 mg/dL LOW HDL < 40 mg/dL HIGH Performed By: #### B MP, LIPID #### [facility] [address] Serum or plasma total choles terol/high density lipoprotein (HDL) cholesterol mass ratOrdered By: Dedrick Fuller on 08-30-2024 Cholesterol.total/Chol esterol in HDL [Mass ratio] 5.7 {ratio} Normal <5.0 [facility] Comment on above: Result Comment: PERF ORMED BY: [place] [address] PATHOLOGIST CORPORATE SALES REPRESENTATIVE IRMA MARCELO M.D. Performed By: #### B MP, LIPID #### [facility] [address] Sodium [Moles/volume] in Ser um or PlasmaOrdered By: Dedrick Fuller on 08-30-2024 Sodium [Moles/Vol] 140 mmol/L Normal 136-145 [facility] Comment on above: Performed By: #### B MP, LIPID #### [facility] [address] Triglyceride [Mass/volume] i n Serum or PlasmaOrdered By: Dedrick Fuller on 08-30-2024 Triglyceride [Mass/Vol] 231 mg/dL High 0-149 [facility] Comment on above: TRIG ATP III CLASSIF ICATIONTRIG less than 150 mg/dL NormalTRIG 150-199 mg/dL Borderline highTRIG 200-500 mg/dL High TRIG greater than 500 mg/dL Very highStandard traceable to the Center for Disease Conrtrol and Prevention (CDC) test method. Urea nitrogen [Mass/volume] in Serum or PlasmaOrdered By: Dedrick Fuller on 08-30-2024 Urea nitrogen [Mass/Vol] 18 mg/dL Normal 06-24 [facility] Comment on above: Performed By: #### B MP, LIPID #### [facility] [address] Coding Summaryon 03-19-2024 Coding Summary HTMLBase 64 YfyyhvjyOGp3wRr+PGhlYWQ+PE 4YIKMsJ01tgUPejV2bW1SZJSsB BjqrCOXKAWqNIrZeqkIvZH6eiH NjZXJu IC8+TK7nNFKpVxuskLZqz7N4xF Y2N31ale1zLUwzdAE3ZXLhBuTj qlqxv5xujUq1CSkrYqypEnMk WCWksE15KSU4mF33Ay10cZRrvB Vbw8mofLy7BhUjLYNdYIR3fQiu MAvvp6XqVFRkT97izLLce0N7 VEQevGgqbJYfOrLdnKH6zJ7kKI awklqdu5aojgzzXcz5in01rXFy r6K8nMV1G6HktbX3TGOeaLUw OgzdtYMJxH7wggiln6nryodqAd IkIZIyCLl5MFp8VRPtyYudKpYr OS25SVI4MDLvxbFeQ0AkMBKl sXyoWoD4o4M4Uo3SW5JZNtwsG1 VNTUFSWTwvdGQ+VN48yx97H4Jf DrnmDip7ASDcMUR2lXT9aL4x YIDhIEbgb3K0rZM8G2ZxqsGfjl 7ss0arKTTgBNmfD51chUKkc9X6 BEOlmDX8JMTbqDtiOmLxbH02 Oyc+REVwqMgnw9ScYrkie2fnr2 qtdMv6AgngQBNgmjArtUqeNNC0 s9PcJl0uGNFsuJK4bHT1tB1p GkNhMlW4KBwuJ414DrExeKZqUd fcG42nS2QjtJJ+GSVuDio2JRAd vIbtCR6jU5NfSAKzlvbcuUIp oWxfAW8pGLTbppdaWLDnyC6nIU VtI9s3UpDiLrH3WGnjV0EjBPNk falxVv51bD9rUuOnBzI3XBtw T8ChipY3WCTlbVEgQCqdHUU5R1 7xf8E2GSClZZVmRFP7qYV9eN1n bGlnbjogbGVmdDsgdmVydGlj BAmlBAmwB687GAFpsFhqZdKoPU luZyBEYXRlOiAgMDQvMTkvMjAy NDwvdGQ+ZKKxMWI3sAnhMLOz qFFnPUtjQs3fkZqudDhyTM7iRD OyllhiGGDbkW9sKCShrNXlpGes BM6hAQTziwghf581YlXkCSN1 RBNxiIOrB8IldC9gMvJzNXQfWQ KmH0SehLIqJXhhJ601OMslDwH3 XRYjnoMzE3MjWZCsrEwqLzM7 t8D9Xy6Wc6CmttlzU5GjiEZkLm CcPrpvQOl2Y0TmHaselXZ+PC90 PYRbLC95ANi5LOZ9kPbaAPtn IRWhD2KpyG0tXxMiRELeZSXuYr c+PHRhYmxlIHdpZHRoPScxMDAl IbGozPeqKN5nEo6aJLHgOLXx yRevfSWwCsQkc8sbNJUmAQexAS 8zaGbuU4EyiFD5LKZxr6x2Ur80 J81qX9GszKX+VQRgyDR3hBJ4 rT1sMdPcVkB9UBuwO627ScJfyA QdTvxzj8sax0yhqAx8JaI1ANVi nuUhiOboDDY4x6OeZn26E75h IHdpZHRoPSIxNSUiIHZhbGlnbj 4rzJ1dTu7+QSRvnIJ4qHB3uW9l NmOwHtQ1GWnaO613ErQcfYMz Ghiib3sbi7ktmAy2CwMsJSOcti IalPwxHZO2j9CzTq51L2EcjMss y3OpTzt0xz46cQNyj6D4sFK4 J8LsFUJblucdgCCeuXtqFH3iWZ SkokonWTLygG1yNAMeT7z2LnIc ZsH4CPdwC8DbdlR4QQGnpTWn FSGbnMUEeN4tzuiso5cberslNk GdSWDqGZu1LLo2WJIwsLunEgHt NTH6AqE8CNJ9jQDomY6puZct fqsvcS9aGlb+JAX1iARvaVSDAV 1lOjwvdGQ+JIYiSOP4zScqVGxn OQWvmM4kTLJxE4e3ReXuPrI6 EKwaM0AiwmX4ADWywXVsGADxdY BXwJ7epcdwq8ncdwmuKiMzKUWs KZf9JVy8YPAxqCvlWiBfJNX7 LzC3QGT6qAImkX8hoFjlxdsoyI 9wOyc+WwdznCadLUV1GOr6M0Fd Rai1IOMwrTjvTB2ewOGbOQte Dt0gqQpdeInhIA2cKIOnxghpc2 49UzAxp1sbAUOatMOvJNatBVL4 X83yk9N7VGJeGHUrZGP7dMD7 lM2gaMvusxlhiCCtdOfpnlQilI nwREsuXAayR265GKFppFzrJxAk QBi0I4JlPnh9GCOdmUjtMQ3n zYBjAXxzCk2jqUfyqTbcTR1dOW Rrokwre602BkHny9ziPOPksCZv NUejUBG0Q97oy1O7JZCuJKGu JMD7qFC3fZ3udYxkbofpiWHreF ttefGpjEfbSIodJZceK077EDCm aHyiYbWurNm7T5ZpAas5KBLk nMpcAD0xdNBaJZdcPt6pkEwldC itTA5zGAWdulbui693AtAta7oq PBNkrUAaKLwvMGV6K65ab2D2 MGUzYZXcZYX2yAM9dR7lwNqjvv ogbGVmdDsgdmVydGljYWwtYWxp W960IYUfyBirWdMrcPegsqVw MXacHWd1J3ChDirblYU+PC90YW LkWE27uTBbkVMbt8wiiBb8MkWf DHNxFLA9zWmgOCxyo8EmSKNz U35liKMjv6B2RLItoNrlwTSwPt GlrNS2wO3nVTlfvwxdb5kejxmu Rhcbk3kcbn35jO10H62lMCsx LIKzUUNzHICoVZIctCdykg1whF 9wIi8+RZRtvAE4tRS6hT1vSQBg WjZ5LMaxC953OwEqcHFtFlyq a9qad6esnEb6RfX4NKPlieMckB ehRPK1d7HbFt38T26xPKlwGRIc WIAzKSDbYRCgiLxjcz2ewR0q Ii8+SXEjfBJ3uWH2yC2eAtTuUp G8UQauZ121MzBkoOXkGnusF79p S9NyqYB+RNMhXxg1NIYcyEps RW7aoNClRDndJg4aZVH5IrKkZz SpBNptC4LbGCIpupslwllgjIO9 NVQyXLNtxV78Xi5lvPmrDEPh aYEIfT1iqwicd0ltymcdLqGyOM YlQLx0XVa7KNIiiZfmNySkWMC4 QfA2KIH8sQXktD5wwRxtwjbe rS6kH0WlFKAlnhgjPl07mF0lVn PnEmD5FOskDrc+Z82LQHOUNQUB DMKXID5PNP6HH25PUEbhlZN+ XQJrJJH8iRtzNEicJXWoyQ9yCH VeS6i4VhUnFrC6XZssZ6VeJHEt mnnkYl59hP5wUmFvSnW7TYsh R8ZuboR0UNFwtAKjPOrqSAJ8M4 0xq3I9PGIfCNNnOFJ2cXF9eT0j bGlnbjogbGVmdDsgdmVydGlj NMzgPXncU148WGFohIotBgX8Zo H9XnG4ZeQ6E4FvLoa6ZBBmpGgk AK1cwFKoWUsiTh7xgAvkrIqo LP9xJXUeklapIDWjqK9cKDNsrH AcmQjsKI6oHQExreghd153XrPv JNR7ELGqkQTeJ3WhuQ9kXfXk COQiRBVsO1TirJDiOUygT736UI dvTuC9WTPrfoKgN3HeWBTupKuu WrS3f0A5Gk37RlJSQGPowrum dGQ+BMPuOOF1aMmlLColIKQjuD 3uRFHyQ6r2JwVsNcP3SSlsP3Sc ICEsxwplDv78kI2zFlBsYiV8 SYziN5TqatC1YVAhhSQwXKvwIP V4J85ir9T3UYToMWYzEJY4oRX4 fC3vgFqxnamakYZyrIjlnvOu tYtiTKulVOxxS092OMZbiAthHi ZFTUFMRTwvdGQ+FZGeAFV7zBss ALfhRJDmoY3cZSIoK8y2DoYm JtK1PZymG2GzTNGmiowcOe78rP 0pUgNcDvB3WAaiU6GuktE6NTEu bSOhNCybOXJ1Z12hu8L9FPZf BGYdIVC8kMZ7tG3ktOgbuxpjhY WddTgijgLemChsLTrzICzyV566 VTOevHfgGkHjXXVvKP7mkNke dGQ+IC38qt86F3XjIrzrHaa0PQ GnQLI0lXK8iU3kAXRfZBpil6K1 bOJ2F2FrojUnsk3sp0xsBLEc CDsxR01vmLLzc3F9YKOewKA3LZ FguFbwKjMbrB91Koo+PGNvbGdy z0GaVqmqn2syo7eviLx5LgZl YBWyhoRxcSydJRR8n6MvXd35L6 9sIHdpZHRoPSIzMCUiIHZhbGln lj9orI4pRg3+QYFxzEE8vTO4 iJ5pEjBfMxT4DAplX265VkLlxR MePztoa4mhq2graSo7AlSoKTLq atNspUanNDY2u6KlAk01G3Ay wSulk3YlJas7by74kIAap5M8gQ N0O1DbXGBzjjvvyGFbfHaoWL4d ZLDimjjuWHQoyT4yOSReV5p2 EtVbQdV1BDdyN1LyzcI3XKZrnD TaWWZqyIZOqC3rjpobi7cqkrim KlQmFOVvSCr8JHf8IPHnpVmi YeRkJFO3XgT3LBB9eZKeuN0cqY tigrcoeY2dRem+TIk0h5utiEPd VS7xaFC8ZR36TL81tDMhg4P5 zYP6M0EeIFIdkdudqncmwLZ1UM CqSHEmjJ81Zg7idSlgKr5fUCBc PED3OMLklHUmU6ZrrL2yTeIr NOTbQSNqR4KsmZXjHJakK061UR qzPrJ7PLTjbzEjH4GfCTFboAwa EeN4k0R1Qx3KDL67CH79RT32 eHBtu0J1zLM3J1TdFBRaffxfcj bfhPW5NEWbLCRkjU80Ko3khKln Gu1qFGOzFYT7ZXUjzKQhQ2Ex vT9fTcNbJNFbMMWhY2ZfmJNhKJ vjP908DNjqOqQ1DMGrguAvV8Ps DGHanBbsZjG0b0N8Ac1SLz10 NF36NF78zQVjj2U6eGB6T6MtPN WlnzfgcyfjpEV0UMWdKUFudX25 Nl9yiSqzVw8cOVPbYRT5IGMb zOCbC0XbsE9xChEfLKUwJKEdU9 WvmPCmVGtlD678JYpgOnL7ZFGa mrKwV1PhFEOkbSqoJzF8v6U0 Lk1HIWnhbql3P2TaWcekwIN+PC 60CJRdAZ57sYEmeCDmu9nnjIj9 WgCyYJXuQTX0oRhpFNhmy4Rd ZXI (more content not included)... Normal [facility] Ambulance Noteon 03-17-2024 Ambulance Note [id number]#[id number] [facility] C Urineon 03-17-2024 C Urine Urine Culture ordere d as a result of parameters set on specific urine dip and urine microsopic results. >100,000 cfu/ml Lactobacillus species Normal vaginal oleg isolated 10,000 cfu/ml Corynebacterium species (DIPTHEROID) No YOLANDE performed on this organism No pathogens isolated [facility] Comment on above: Performed By: #### 5 [id number], [id number], [id number] ####[facility] (DEFAULT)[address] [place] [address] .Auto Diff 1on 03-15-2024 Auto Blackford % 3 % Normal 1-12 [facility] Comment on above: Performed By: #### 5 [id number], 6247995512, 6026404988, 19813179, 1638923755, 5600821, 5962571 #### [facility] (DEFAULT) [address] [place] [address] Baso Abs# 0.1 x10 Normal 0.0-0.2 [facility] Comment on above: Performed By: #### 5 113538651, 1208292070, 2031421337, 49213477, 4737365348, 7482233, 2910685 #### [facility] (DEFAULT) [address] [place] [address] 09546 Basophils/100 WBC (Bld) 0.7 % Normal 0.2-2.0 [facility] Comment on above: Performed By: #### 5 768696226, 4155482715, 3388517029, 09890072, 9132608296, 4372713, 8096395 #### [facility] (DEFAULT) [address] [place] [address] 94308 Eos Abs# 0.1 x10 Normal 0.0-0.4 [facility] Comment on above: Performed By: #### 5 [id number], 8975616392, 9628096169, 45237531, 1942288063, 8287934, 5611875 #### [facility] (DEFAULT) [address] [place] [address] 62059 Eosinophils/100 WBC (Bld) 0.7 % Low 0.9-4.0 [facility] Comment on above: Performed By: #### 5 [id number], 8052593962, 5481537489, 36753401, 7743822670, 0163953, 8113779 #### [facility] (DEFAULT) [address] [place] [address] 72895 Lymph Abs# 2.2 x10 Normal 1.3-2.9 [facility] Comment on above: Performed By: #### 5 005291725, 8019738820, 0770161541, 93394488, 4596152412, 2014009, 6258888 #### [facility] (DEFAULT) [address] [place] [address] 26374 Lymphocytes/100 WBC (Bld) 14 % Normal 14-48 [facility] Comment on above: Performed By: #### 5 419876586, 2329407697, 8164432452, 92283669, 9028952374, 3315463, 4323399 #### [facility] (DEFAULT) [address] [place] [address] 65058 Blackford Abs# 0.5 x10 Normal 0.0-0.8 [facility] Comment on above: Performed By: #### 5 [id number], 8981461677, 0337648151, 08019588, 4979962427, 7934408, 3143823 #### [facility] (DEFAULT) [address] [place] [address] 03540 Neut Abs# 13.5 x10 High 1.5-9.2 [facility] Comment on above: Result Comment: Slid e Reviewed Performed By: #### 5 [id number], 1551187149, 0826522632, 45097004, 9191781627, 6140383, 3365836 #### [facility] (DEFAULT) [address] [place] [address] 66077 Neutrophils/100 WBC (Bld) 82 % Normal 44-88 [facility] Comment on above: Performed By: #### 5 953826303, 3944241317, 8807594925, 94707514, 1958442150, 9156149, 2486373 #### [facility] (DEFAULT) [address] [place] [address] 51956 CBC w/ Auto Diffon 4 Erythrocyte distribution width (RBC) [Ratio] 13.3 % Normal 11.5-15.0 [facility] Comment on above: Performed By: #### 5 [id number], 5853503379, 4678033374, 20410725, 8546474439, 1710706, 0707835 #### [facility] (DEFAULT) [address] [place] [address] 04445 Hematocrit (Bld) [Volume fraction] 45.0 % High 33.7-40.4 [facility] Comment on above: Performed By: #### 5 [id number], 4790023328, 1105180534, 62649912, 1162529775, 8892446, 9616924 #### [facility] (DEFAULT) [address] [place] [address] 64724 Hemoglobin (Bld) [Mass/Vol] 15.0 g/dL Normal 11.3-15.9 [facility] Comment on above: Performed By: #### 5 592691456, 4504087525, 1831897302, 35913363, 4711301238, 3780668, 7052039 #### [facility] (DEFAULT) [address] [place] [address] 09697 Man Diff? Auto Invalid Interpretation Code [facility] Comment on above: Performed By: #### 5 [id number], 6778523618, 9630628847, 39835602, 9844340655, 7247844, 3043964 #### [facility] (DEFAULT) [address] [place] [address] 35636 MCH (RBC) [Entitic mass] 32 pg Normal 24-34 [facility] Comment on above: Performed By: #### 5 054705541, 2659929117, 4360691607, 45012222, 1879303350, 7059472, 0261447 #### [facility] (DEFAULT) [address] [place] [address] 92992 MCHC (RBC) [Mass/Vol] 33 g/dL Normal 26-[address] [facility] Comment on above: Performed By: #### 5 402357047, 8954622013, 1469800617, 22291958, 3197570690, 0045851, 9345835 #### [facility] (DEFAULT) [address] [place] [address] 66372 MCV (RBC) [Entitic vol] 95 fL Normal 81-100 [facility] Comment on above: Performed By: #### 5 860814429, 9942310438, 3072965195, 70564039, 7248298369, 2404279, 8513605 #### [facility] (DEFAULT) [address] [place] [address] 93949 Platelet 292 x10 Normal 138-427 [facility] Comment on above: Performed By: #### 5 174884152, 3945511153, 2856762310, 16069799, 4528814337, 5942696, 3110615 #### [facility] (DEFAULT) [address] [place] [address] 45182 Platelet mean volume (Bld) [Entitic vol] 8.7 fL Normal 6.3-10.2 [facility] Comment on above: Performed By: #### 5 183666679, 9756703759, 4536831766, 18802367, 5293360443, 0754364, 0189444 #### [facility] (DEFAULT) [address] [place], [place] [address] RBC 4.74 x10 Normal 3.70-5.30 [facility] Comment on above: Performed By: #### 5 978601568, 0097982680, 6317507723, 81466411, 5520718247, 1443834, 5420264 #### [facility] (DEFAULT) [address] [place] [address] WBC 16.4 x10 High 3.5-10.5 [facility] Comment on above: Performed By: #### 5 475379380, 4179895362, 7384868262, 23962943, 0746544077, 1493509, 2999907 #### [facility] (DEFAULT) [address] [place] [address] Standardon 03-15-2024 eGFR Non AA >[address] [facility] Comment on above: Performed By: #### 5 [id number], 0452639293, 2781131136, 65062376, 5894919929, 3813560, 1242161 #### [facility] (DEFAULT) [address] [place] [address] eGFR AA >[address] [facility] Comment on above: Performed By: #### 5 828726145, 6537234732, 0111236409, 09420051, 6624381606, 2005502, 6566344 #### [facility] (DEFAULT) [address] [place] [address] Albumin [Mass/Vol] 4.1 g/dL Normal 3.5-5.0 [facility] Comment on above: Performed By: #### 5 960517706, 3634573371, 9778790727, 96769903, 9964054215, 5230366, 0665355 #### [facility] (DEFAULT) [address] [place] [address] Albumin/Globulin [Mass ratio] 1.3 {ratio} Low 1.4-2.6 [facility] Comment on above: Performed By: #### 5 524609273, 5105128724, 4769485235, 51742808, 0512957681, 5389544, 4038048 #### [facility] (DEFAULT) [address] [place] [address] 39231 Alk Phos 39 IU/L Normal 32-91 [facility] Comment on above: Performed By: #### 5 707046151, 0197811638, 5038595659, 92686425, 7343275385, 3565130, 8837657 #### [facility] (DEFAULT) [address] [place] [address] 83004 ALT [Catalytic activity/Vol] 32.0 U/L Normal 14.0-54.0 [facility] Comment on above: Performed By: #### 5 654841003, 5662525645, 2282749969, 04009544, 3674698481, 7614100, 4950415 #### [facility] (DEFAULT) [address] [place] [address] 87940 Anion gap [Moles/Vol] 13.0 mmol/L Normal 5.0-19.0 [facility] Comment on above: Performed By: #### 5 015274597, 3853389119, 7663397279, 81701431, 0837284046, 6768077, 3958256 #### [facility] (DEFAULT) [address] [place] [address] 55941 AST [Catalytic activity/Vol] 25 U/L Normal 15-41 [facility] Comment on above: Performed By: #### 5 877429474, 8020783171, 0323210374, 17538504, 2902570327, 3664155, 5231547 #### [facility] (DEFAULT) [address] [place] [address] 22330 Bili Total 1.4 mg/dL High 0.3-1.2 [facility] Comment on above: Performed By: #### 5 098993263, 3251570449, 7616490112, 34716800, 1673326642, 9852535, 8838032 #### [facility] (DEFAULT) [address] [place] [address] 03697 Calcium [Mass/Vol] 8.8 mg/dL Low 8.9-10.3 [facility] Comment on above: Performed By: #### 5 226354302, 0153932793, 1798615729, 92987305, 1765849668, 8922296, 9984093 #### [facility] (DEFAULT) [address] [place] [address] 72743 Chloride [Moles/Vol] 105 mmol/L Normal 101-111 [facility] Comment on above: Performed By: #### 5 502740948, 2075741198, 4091715488, 31372493, 5961742962, 8015563, 5139529 #### [facility] (DEFAULT) [address] [place] [address] 36809 CO2 [Moles/Vol] 24 mmol/L Normal 21-32 [facility] Comment on above: Performed By: #### 5 122159000, 3680454032, 9981140410, 26813117, 5298106243, 0864196, 5049408 #### [facility] (DEFAULT) [address] [place] [address] 83845 Creatinine [Mass/Vol] 0.72 mg/dL Normal 0.60-1.[address] [facility] Comment on above: Performed By: #### 5 249136690, 8566573139, 8034672895, 73294749, 2844109625, 6784804, 6869904 #### [facility] (DEFAULT) [address] [place] [address] 47745 Globulin (S) [Mass/Vol] 3.0 g/dL Normal 1.5-4.3 [facility] Comment on above: Performed By: #### 5 [id number], 1380915304, 1537977443, 74833772, 1790614365, 3072144, 8785019 #### [facility] (DEFAULT) [address] [place] [address] 98194 Glucose [Mass/Vol] 124.0 mg/dL High 74.0-118.0 [facility] Comment on above: Performed By: #### 5 277261869, 1002696489, 1994025025, 12766954, 0225411819, 6349556, 6333320 #### [facility] (DEFAULT) [address] [place] [address] 33404 Osmolality 278 mOsm/L Invalid Interpretation Code [facility] Comment on above: Performed By: #### 5 532897809, 0924184313, 5736837696, 94082860, 8871410916, 1846414, 3117947 #### [facility] (DEFAULT) [address] [place] [address] 90001 Potassium [Moles/Vol] 4.0 mmol/L Normal 3.6-5.[address] [facility] Comment on above: Performed By: #### 5 061570548, 2147523471, 0416800943, 71847608, 0956648827, 5746203, 3218761 #### [facility] (DEFAULT) [address] [place] [address] 15153 Protein [Mass/Vol] 7.1 g/dL Normal 6.5-8.1 [facility] Comment on above: Performed By: #### 5 279115761, 3523809709, 7887544504, 36492988, 2016298933, 2092508, 3350728 #### [facility] (DEFAULT) [address] [place] [address] 45681 Sodium [Moles/Vol] 138.0 mmol/L Normal 136.0-[address] [facility] Comment on above: Performed By: #### 5 [id number], 8568612447, 3665923480, 26487104, 3165931081, 9652642, 1272192 #### [facility] (DEFAULT) [address] [place] [address] 07841 Urea nitrogen [Mass/Vol] 15 mg/dL Normal 8-26 [facility] Comment on above: Performed By: #### 5 113420373, 4878993937, 2299052990, 89522813, 5605696304, 6653542, 7588978 #### [facility] (DEFAULT) [address] [place] [address] 17267 Urea nitrogen/Creatinine [Mass ratio] 20.8 mg/mg High 4.6-16.2 [facility] Comment on above: Performed By: #### 5 217456002, 4744560987, 9577193566, 94564156, 1628651914, 2523862, 1892454 #### [facility] (DEFAULT) [address] [place] [address] [address] [facility] Comment on above: Performed By: #### 5 541721576, 8736242953, 3810127583, 27962766, 0884055339, 8938930, 2062655 #### [facility] (DEFAULT) [address] [place] [address] 83601 ED Clinical Summaryon [address] [facility] - Emergency Department [address] [place] [address] 03659 ED Clinical Summary PERSON INFORMATION Name: HORACIO KEATING Age: 48 Years Sex: FEMALE : 1975 MRN: Acct#: Visit Reason: Shortness of breath; Anxiety; Blood pressure check; SOB Arrival: 03/15/2024 17:56:51 Discharge: 03/15/2024 20:31:00 LOS: 000 02:35 Check In: 03/15/2024 17:56:51 Checkout:03/15/2024 20:31:00 Address: [address] [place] [address] PCP: SAMI MCCARTY PROVIDER INFORMATION Provider Role Assigned Unassigned Nicola Neff DO ED Provider 03/15/2024 18:07:25 Solange MALHOTRA, Shanika Lawton ED Nurse 03/15/2024 18:08:57 Joanna Angeles BOM[employer]ER Nurse 03/15/2024 19:24:01 VITALS INFORMATION Vital Sign [...] Macrobid; albuterol PHYSICIAN DOCUMENTATION Patient: HORACIO KEATING [facility]: [id number] Age: 48 years Sex: FEMALE : 1975 [...] . Physical Exa (more content not included)... [facility] ED Note - Physicianon 2023 ED Note - Physician Patient: ANN KEATING Age: 48 years Sex: FEMALE : [...] Psychiatric: (more content not included)... Normal [facility] ED Note-Nursingon 03-15-2024 ED Note-Nursing Patient presents to the ER via [facility] for shortness of breath, anxiety. Patient [...] lead was regular in rate Normal [facility] ED Patient Summaryon [address] [facility] - Emergency Department [address] [place] [address] PATIENT DISCHARGE INSTRUCTIONS Patient Information Name: HORACIO KEATING Age: 48 Years Date of : 1975 [facility]: [id number] Reason For Visit: Shortness of breath; Anxiety; Blood pressure check; SOB Arrival Time: 03/15/2024 17:56:51 Primary Care Physician: SAMI MCCARTY Attending Physician: Nicola Neff DO Comment: Visit Diagnosis: Diagnoses This Visit Anxiety ([id number]) Blood pressure check ([id number]) Hypertension (I10) Panic attack (F41.0) Shortness of breath ([id number]) Urinary tract infection (N39.0) The Pharmacy at [...] alcohol and/or drug addiction problems; contact the [facility] 23/06 Crisis Hotline -Text 7BHCR to [phone]. If you received any narcotics, sedation, or [...] any legal documents With: Address: When: SAMI JOCELYNNLeonardo [address] [place], [place] [id number] Business (1) Within 3 to 5 days Comments: Call for follow up appointment Return if symptoms worsen Medication Information: The exam and treatment you received today in the [facility] Emergency Department were for an urgent problem and are not intended as complete care. It is important for you to follow up with a doctor, nurse practitioner, or physician?s assistant paralegal for ongoing care. If your symptoms become [...] we can reach you if necessary. [facility] Emergency [facility] has provided you with a complete list of medications post discharge. Please inform your motor equipment sergeant/provider of your visit and for further instruction [...] an (more content not included)... Normal [facility] Extra [facility] 03-15-2024 Tube Collected Yes Invalid Interpretation Code [facility] Comment on above: Performed By: #### 5 [id number], 3280194835, 6938527430, 36821051, 2933033981, 4692978, 5803565 #### [facility] (DEFAULT) [address] [place] [address] 39524 Extra Redon 03-15-2024 Tube Collected Yes Invalid Interpretation Code [facility] Comment on above: Performed By: #### 5 [id number], 5997987956, 8994599647, 91960212, 3848232487, 7063810, 4853353 #### [facility] (DEFAULT) [address] [place] [address] 79303 PTon 03-15-2024 INR Coag (PPP) [Relative time] 0.94 {INR} Normal 0.91-1.11 [facility] Comment on above: Performed By: #### 5 031566869, 4944722871, 3724201031, 99402683, 2322251192, 3840869, 2687423 #### [facility] (DEFAULT) [address] [place] [address] PT 9.8 second(s) Normal 9.7-11.8 [facility] Comment on above: Performed By: #### 5 824095025, 0700159425, 8565939509, 16144266, 4394048467, 5336918, 6954037 #### [facility] (DEFAULT) [address] [place] [address] 90200 TnI HSon 03-15-2024 Troponin I High Sensitivity 7.7 pg/mL Normal <=15.0 [facility] Comment on above: Performed By: #### 5 [id number], 6038420351, 9290212215, 53298782, 0226259911, 1725952, 7293867 #### [facility] (DEFAULT) [address] [place] [address] 38095 UA Chjgt1at 03-15-2024 UA Amorph. 1+ Normal [facility] Comment on above: Order Comment: Urina lysis Microscopic order added on by Discern Expert Rules system. Performed By: #### 5 [id number], 0693143706, 4128354 ####[facility] (DEFAULT)[address] [place] [address] 50470 UA Bacteria 3+ Normal [facility] Comment on above: Order Comment: Urina lysis Microscopic order added on by Discern Expert Rules system. Performed By: #### 5 [id number], 6036309220, 8111520 ####[facility] (DEFAULT)[address] [place] [address] 80736 UA Mucous 1+ [facility] Comment on above: Order Comment: Urina lysis Microscopic order added on by Discern Expert Rules system. Performed By: #### 5 0999419, 4066396170, 4763429 ####[facility] (DEFAULT)[address] [place] [address] UA RBC 3-5 [facility] Comment on above: Order Comment: Urina lysis Microscopic order added on by Discern Expert Rules system. Performed By: #### 5 4894231, 4597724734, 7296401 ####[facility] (DEFAULT)[address] [place] [address] [facility] Comment on above: Order Comment: Urina lysis Microscopic order added on by Discern Expert Rules system. Performed By: #### 5 1265811, 0853590807, 1967741 ####[facility] (DEFAULT)[address] [place] [address] [facility] Comment on above: Order Comment: Urina lysis Microscopic order added on by Discern Expert Rules system. Performed By: #### 5 0609820, 1168690646, 9359156 ####[facility] (DEFAULT)[address] [place] [address] [address] WBC 3-5 [facility] Comment on above: Order Comment: Urina lysis Microscopic order added on by Discern Expert Rules system. Performed By: #### 5 [id number], 0984981192, 5353642 ####[facility] (DEFAULT)[address] [place] [address] 13313 UA w Culture if Ind Standard on 03-15-[address] [facility] Comment on above: Performed By: #### 5 [id number], 0632028644, 5035268 ####[facility] (DEFAULT)[address] [place] [address] 67794 Color (U) Yellow Normal [facility] Comment on above: Performed By: #### 5 9601565, 1819025252, 1906602 ####[facility] (DEFAULT)[address] [place] [address] 80344 Culture? Indicated Invalid Interpretation Code [facility] Comment on above: Result Comment: Resu lt created by rule GL_MAGR_ADD_UA_CULT Result created by rule GL_MAGR_ADD_UA_CULT Result created by rule GL_MAGR_ADD_UA_CULT1 Result created by rule GL_MAGR_ADD_UA_CULT Performed By: #### 5 [id number], 2326995393, 2704733 ####[facility] (DEFAULT)[address] [place] [address] 15177 Glucose (U) [Mass/Vol] Negative Normal [facility] Comment on above: Performed By: #### 5 7204720, 4660593159, 4405788 ####[facility] (DEFAULT)[address] [place] [address] 40576 Ketones Ql (U) Negative Normal [facility] Comment on above: Performed By: #### 5 [id number], [id number], [id number] ####[facility] (DEFAULT)[address] [place] [address] 82679 Micro? Indicated Invalid Interpretation Code [facility] Comment on above: Result Comment: Resu lt created by rule GL_MAGR_ADD_UA_MICRO Performed By: #### 5 [id number], [id number], [id number] ####[facility] (DEFAULT)[address] [place] [address] 50077 UA Bilirubin Negative Normal [facility] Comment on above: Performed By: #### 5 [id number], [id number], [id number] ####[facility] (DEFAULT)[address] [place] [address] 59015 UA Blood TRACE Abnormal NEGATIVE [facility] Comment on above: Performed By: #### 5 [id number], [id number], [id number] ####[facility] (DEFAULT)[address] [place] [address] 46654 UA Clarity SL CLOUDY Abnormal CLEAR [facility] Comment on above: Performed By: #### 5 [id number], [id number], [id number] ####[facility] (DEFAULT)[address] [place] [address] 47220 UA Leuk Est LARGE Abnormal NEGATIVE [facility] Comment on above: Performed By: #### 5 [id number], [id number], [id number] ####[facility] (DEFAULT)[address] [place] [address] 91242 UA Nitrite Negative Normal NEGATIVE [facility] Comment on above: Performed By: #### 5 [id number], [id number], [id number] ####[facility] (DEFAULT)[address] [place] [address] 29683 UA pH 6.0 Normal 5-8 [facility] Comment on above: Performed By: #### 5 [id number], [id number], [id number] ####[facility] (DEFAULT)[address] [place] [address] 15698 UA Protein Negative Normal NEGATIVE [facility] Comment on above: Performed By: #### 5 [id number], [id number], [id number] ####[facility] (DEFAULT)[address] [place] [address] 75098 UA Spec Grav 1.015 Normal 1.001-1.[address] [place] [address] Comment on above: Performed By: #### 5 [id number], [id number], [id number] ####[facility] (DEFAULT)[address] [place] [address] 64967 UA Urobilinogen 0.2 mg/dL Normal 0.2-1.0 [facility] Comment on above: Performed By: #### 5 [id number], [id number], [id number] ####[facility] (DEFAULT)[address] [place] [address] 38062 Urine Source Clean Catch Normal [facility] Comment on above: Performed By: #### 5 [id number], [id number], [id number] ####[facility] (DEFAULT)[address] [place] [address] XR Chest 1 View Frontalon XR Chest [...] MD 03/15/24 7:34 pm Technologist: Lizzy BRICEÑO [facility] Calcium [Mass/volume] in Ser um or PlasmaOrdered By: Dedrick Fuller on 08-15-2023 Calcium [Mass/Vol] 9.1 mg/dL 8.6-10.3 [facility] Carbon dioxide, total [Moles /volume] in Serum or PlasmaOrdered By: Dedrick Fuller on 08-15-2023 CO2 [Moles/Vol] 26.7 mmol/L 21.0-31.0 [facility] Chloride [Moles/volume] in S altagracia or PlasmaOrdered By: Dedrick Fuller on 08-15-2023 Chloride [Moles/Vol] 107 mmol/L 98-107 [facility] Cholesterol [Mass/volume] in Serum or PlasmaOrdered By: Dedrick Fuller on 08-15-2023 Cholesterol [Mass/Vol] 166 mg/dL 140-200 [facility] Comment on above: Chol less than 200 m g/dl low riskChol 201-239 mg/dl borderline riskChol 240 mg/dl and greater high risk Cholesterol in LDL Calc [Mas s/Vol]Ordered By: Dedrick Fuller on 08-15-2023 Cholesterol in LDL [Mass/Vol] 95 mg/dL 0-100 [facility] Comment on above: LDL ATP III CLASSIFI CATIONLDL less than 100 mg/dL OptimalLDL 100-129 mg/dL Near or above optimalLDL 130-159 mg/dL Borderline highLDL 160-189 mg/dL HighLDL greater than 189 mg/dL Very high Cholesterol in VLDL Calc [Ma ss/Vol]Ordered By: Dedrick Fuller on 08-15-2023 Cholesterol in VLDL [Mass/Vol] 32 mg/dL [facility] Creatinine [Mass/volume] in Serum or PlasmaOrdered By: Dedrick Fuller on 08-15-2023 Creatinine [Mass/Vol] 0.77 mg/dL 0.60-1.20 [facility] Glucose [Mass/volume] in Ser um or PlasmaOrdered By: Dedrick Fuller on 08-15-2023 Glucose [Mass/Vol] 97 mg/dL 70-100 [facility] [place] [facility] Comment on above: ADA recommended refe rence rangeRandom Glucose Reference Range is dependent on time and content of last meal. Glucose of more than 200 mg/dL in a nonstressed, ambulatory subject supports the diagnosis of Diabetes Mellitus. No Panel InformationOrdered By: Dedrick Fuller on 08-15-2023 Estimated GFR (CKD-EPI) > 60.0 mL/Min [facility] Creatinine Clearance (Chem N/A [facility] Potassium [Moles/volume] in Serum or PlasmaOrdered By: Dedrick Fuller on 08-15-2023 Potassium [Moles/Vol] 4.0 mmol/L 3.5-5.1 [facility] Serum or plasma anion gap de terminationOrdered By: Dedrick Fuller on 08-15-2023 Anion gap [Moles/Vol] 10.3 mmol/L 6.0-15.0 [facility] Serum or plasma high density lipoprotein (HDL) cholesterol measurementOrdered By: Dedrick Fuller on 08-15-2023 Cholesterol in HDL [Mass/Vol] 39 mg/dL 23-92 [facility] Comment on above: HDL CHOL ATP-III CLA SSIFICATION Cardiovascular RiskHDL > or equal to 60 mg/dL LOWHDL < 40 mg/dL HIGH Serum or plasma total choles terol/high density lipoprotein (HDL) cholesterol mass ratOrdered By: Dedrick Fuller on 08-15-2023 Cholesterol.total/Chol esterol in HDL [Mass ratio] 4.3 {ratio} <5.0 [facility] Sodium [Moles/volume] in Ser um or PlasmaOrdered By: Dedrick Fuller on 08-15-2023 Sodium [Moles/Vol] 140 mmol/L 136-145 [facility] [place] [facility] Triglyceride [Mass/volume] i n Serum or PlasmaOrdered By: Dedrick Fluler on 08-15-2023 Triglyceride [Mass/Vol] 162 mg/dL 0-149 [facility] Comment on above: TRIG ATP III CLASSIF ICATIONTRIG less than 150 mg/dL NormalTRIG 150-199 mg/dL Borderline highTRIG 200-500 mg/dL High TRIG greater than 500 mg/dL Very highStandard traceable to the Center for Disease Conrtrol and Prevention (CDC) test method. Urea nitrogen [Mass/volume] in Serum or PlasmaOrdered By: Dedrick Fuller on 08-15-2023 Urea nitrogen [Mass/Vol] 10 mg/dL 7-25 [facility] GTT 2 HRon 11-09-2022 Glucose [Mass/Vol] 107 mg/dL Critically high 74-106 [facility] Comment on above: Performed By: #### U LG, CRP #### [facility] [address] [address] [address] Soo Donnelly Glucose [Mass/Vol] 152 mg/dL Normal [facility] Comment on above: Performed By: #### U LG, CRP #### [facility] [address] [address] [address] Soo Donnelly Glucose [Mass/Vol] 121 mg/dL Normal [facility] Comment on above: Performed By: #### U LG, CRP #### [facility] [address] [address] ABD/PELV W CONon 10-01-20 CT ABD/PELV W CON EXAMINATION: CT ABD/ PELV W CON HISTORY: Abdominal pain ; acute [...] ELENA SAUCEDA Date: 2022-10-01 10:31 Normal [facility] CBC AUTO DIFFon 09-18-2022 BASO # 0.0 103/ul Normal 0.0-0.1 [facility] Comment on above: Performed By: #### A NAD #### [facility] [address] [address] [address] Soo Donnelly Basophils/100 WBC (Bld) 0.4 % Normal 0.2-2.0 [facility] Comment on above: Performed By: #### A NAD #### [facility] [address] [address] [address] Soo Donnelly EO # 0.1 103/ul Normal 0.0-0.7 [facility] Comment on above: Performed By: #### A NAD #### [facility] [address] [place] [address] Dr. Soo Donnelly Eosinophils/100 WBC (Bld) 1.8 % Normal 0.9-7.0 [facility] Comment on above: Performed By: #### A NAD #### [facility] [address] [place] [address] Dr. Soo Donnelly Erythrocyte distribution width (RBC) [Ratio] 11.9 % Normal 11.0-15.0 [facility] Comment on above: Performed By: #### A NAD #### [facility] [address] [place] [address] Dr. Soo Donnelly Hematocrit (Bld) [Volume fraction] 43.9 % Normal 36.0-48.0 [facility] Comment on above: Performed By: #### A NAD #### [facility] [address] [place] [address] Dr. Soo Donnelly Hemoglobin (Bld) [Mass/Vol] 14.6 g/dL Normal 12.0-16.0 [facility] Comment on above: Performed By: #### A NAD #### [facility] [address] [place] [address] Dr. Soo Donnelly IG # 0.01 10e3/ul Normal 0.00-0.03 [facility] Comment on above: Performed By: #### A NAD #### [facility] [address] [place] [address] Dr. Soo Donnelly IG % 0.1 % Normal 0.0-0.5 [facility] Comment on above: Performed By: #### A NAD #### [facility] [address] [place] [address] Dr. Soo Donnelly LYMPH # 2.7 103/ul Normal 1.2-3.8 [facility] Comment on above: Performed By: #### A NAD #### [facility] [address] [place] [address] Dr. Soo Donnelly Lymphocytes/100 WBC (Bld) 39.9 % Normal 20.5-60.0 [facility] Comment on above: Performed By: #### A NAD #### [facility] [address] [place] [address] Dr. Soo Donnelly MANUAL DIFF REQ NO Normal [facility] Comment on above: Performed By: #### A NAD #### [facility] [address] [address] [address] Soo Donnelly MCH (RBC) [Entitic mass] 31.7 pg Normal 26.7-34.0 [facility] Comment on above: Performed By: #### A NAD #### [facility] [address] [place] [address] Dr. Soo Donnelly MCHC (RBC) [Mass/Vol] 33.3 g/dL Normal 29.9-35.2 [facility] Comment on above: Performed By: #### A NAD #### [facility] [address] [place] [address] Dr. Soo Donnelly MCV (RBC) [Entitic vol] 95.4 fL Normal 81.0-99.0 [facility] Comment on above: Performed By: #### A NAD #### [facility] [address] [place] [address] Dr. Soo Donnelly MONO # 0.4 103/ul Normal 0.3-0.8 [facility] Comment on above: Performed By: #### A NAD #### [facility] [address] [place] [address] Dr. Soo Donnelly Monocytes/100 WBC (Bld) 5.9 % Normal 1.7-12.0 [facility] Comment on above: Performed By: #### A NAD #### [facility] [address] [place] [address] Dr. Soo Donnelly NEUT # 3.5 103/ul Normal 1.4-6.5 [facility] Comment on above: Performed By: #### A NAD #### [facility] [address] [place] [address] Dr. Soo Donnelly Neutrophils/100 WBC (Bld) 51.9 % Normal 43.0-75.0 [facility] Comment on above: Performed By: #### A NAD #### [facility] [address] [place] [address] Dr. Soo Donnelly Platelet mean volume (Bld) [Entitic vol] 10.8 fL Normal 9.5-13.5 [facility] Comment on above: Performed By: #### A NAD #### [facility] [address] [place] [address] Dr. Soo Donnelly PLT 220 103/ul Normal 150-450 [facility] Comment on above: Performed By: #### A NAD #### [facility] [address] [place] [address] Dr. Soo Donnelly RBC 4.60 106/ul Normal 4.20-5.40 [facility] Comment on above: Performed By: #### A NAD #### [facility] [address] [place] [address] Dr. Soo Donnelly WBC 6.8 103/ul Normal 4.0-11.0 [facility] Comment on above: Performed By: #### A NAD #### [facility] [address] [place] [address] Dr. Soo Donnelly ER URINE PROFILEon 2 Bilirubin Ql (U) Negative Normal NEGATIVE [facility] Comment on above: Performed By: #### U LG, CRP #### [facility] [address] [place] [address] Dr. Soo Donnelly Clarity (U) CLEAR Normal CLEAR [facility] Comment on above: Performed By: #### U LG, CRP #### [facility] [address] [place] [address] Dr. Soo Donnelly Color (U) LT. YELLOW Normal YELLOW [facility] Comment on above: Performed By: #### U LG, CRP #### [facility] [address] [place] [address] Dr. Soo CORTEZ A micrscopic examina tion will be performed if indicated. Normal [facility] Comment on above: Performed By: #### U LG, CRP #### [facility] [address] [place] [address] Dr. Soo Donnelly Glucose Ql (U) Negative Normal NEGATIVE [facility] Comment on above: Performed By: #### U LG, CRP #### [facility] [address] [place] [address] Dr. Soo Donnelly Hemoglobin Ql (U) Negative Normal NEGATIVE [facility] Comment on above: Performed By: #### U LG, CRP #### [facility] [address] [address] [address] Soo Donnelly Ketones Ql (U) Negative Normal NEGATIVE [facility] Comment on above: Performed By: #### U LG, CRP #### [facility] [address] [place] [address] Dr. Soo Donnelly LEUKOCYTES Negative Normal NEGATIVE [facility] Comment on above: Performed By: #### U LG, CRP #### [facility] [address] [address] [address] Soo Donnelly Nitrite Ql (U) Negative Normal NEGATIVE [facility] Comment on above: Performed By: #### U LG, CRP #### [facility] [address] [place] [address] Dr. Soo Donnelly pH (U) 6.0 [pH] Normal 5-9 [facility] Comment on above: Performed By: #### U LG, CRP #### [facility] [address] [place] [address] Dr. Soo Donnelly SPEC GRAVITY 1.015 Normal 1.005-<=1. 025 [facility] Comment on above: Performed By: #### U LG, CRP #### [facility] [address] [place] [address] Dr. Soo Donnelly UA PROTEIN Negative Normal NEGATIVE/ TRACE [facility] Comment on above: Performed By: #### U LG, CRP #### [facility] [address] [place] [address] Dr. Soo Donnelly UR MICRO IND NOT INDICATED Normal [facility] Comment on above: Performed By: #### U LG, CRP #### [facility] [address] [place] [address] Dr. Soo Donnelly Urobilinogen Qn (U) 0.2 {Roma'U}/dL Normal 0.2 - 1. 0 [facility] Comment on above: Performed By: #### U LG, CRP #### [facility] [address] [place] [address] Dr. Soo Donnelly PROF CHEM 8 (BAS METB)on Anion gap [Moles/Vol] 10.2 mmol/L Normal [facility] Comment on above: Performed By: #### B MP #### [facility] [address] [place] [address] Dr. Soo Donnelly Calcium [Mass/Vol] 8.7 mg/dL Normal 8.5-10.1 [facility] Comment on above: Performed By: #### B MP #### [facility] [address] [place] [address] Dr. Soo Donnelly Chloride [Moles/Vol] 103 mmol/L Normal 98-107 [facility] Comment on above: Performed By: #### B MP #### [facility] [address] [place] [address] Dr. Soo Donnelly CO2 [Moles/Vol] 27.9 mmol/L Normal 21.0-32.0 [facility] Comment on above: Performed By: #### B MP #### [facility] [address] [place] [address] Dr. Soo Donnelly Creatinine [Mass/Vol] 0.80 mg/dL Normal 0.55-1.02 [facility] Comment on above: Performed By: #### B MP #### [facility] [address] [place] [address] Dr. Soo Donnelly EGFR-AF GABONESE >60 Normal >=60 [facility] Comment on above: Performed By: #### B MP #### [facility] [address] [place] [address] Dr. Soo Donnelly EGFR-NON AF GABONESE >60 Normal >=60 [facility] Comment on above: Performed By: #### B MP #### [facility] [address] [place] [address] Dr. Soo Donnelly Glucose [Mass/Vol] 103 mg/dL Normal 74-106 [facility] Comment on above: Performed By: #### B MP #### [facility] [address] [place] [address] Dr. Soo Donnelly Potassium [Moles/Vol] 4.1 mmol/L Normal 3.5-5.1 [facility] Comment on above: Performed By: #### B MP #### [facility] [address] [place], [place] [address] Dr. Soo Donnelly Sodium [Moles/Vol] 137 mmol/L Normal 136-145 [facility] Comment on above: Performed By: #### B MP #### [facility] [address] [place], [place] [address] Dr. Soo Donnelly Urea nitrogen [Mass/Vol] 11.0 mg/dL Normal 7.0-18.0 [facility] Comment on above: Performed By: #### B MP #### [facility] [address] [place], [place] [address] Dr. Soo Donnelly Urea nitrogen/Creatinine [Mass ratio] 13.8 mg/mg Normal [facility] Comment on above: Performed By: #### B MP #### [facility] [address] [place], [place] [address] Dr. Soo Donnelly XR KUB 1 VIEWon [...] ELENA SAUCEDA Date: 2022-09-18 12:12 Normal [facility] MAMM SCREEN 3D DEAN CADon 09-12-2022 MG MAMM SCREEN 3D DEAN CAD Patient: HORACIO KEATING Exam Date: 09/12/2022 : 1975 Gender:F Ordering : DR DELGADO MURILLO . Admission #: [id number] Family : Order #: [id number] CLICK HERE TO VIEW EXAM RADIOLOGY REPORT [...] ovarian cancer at age 77. LOCATION: [facility] BREAST COMPOSITION: Scattered areas fibroglandular [...] MD on 09/13/2022 at 07:46 Normal [facility] INSULINon 07-20-2022 Insulin 25.5 uIU/mL Critically high 2.6-24.9 [facility] Comment on above: Performed By: #### U LG, CRP #### [facility] [address] [place] [address] Dr. Soo Donnelly T4 LABCORPon 07-20-2022 T4 [Mass/Vol] 7.4 ug/dL Normal 4.5-12.0 [facility] Comment on above: Performed By: #### A NAD #### [facility] [address] [place] [address] Dr. Soo Donnelly CBC W MANUAL DIFFon 07-19-20 22 ATYPICAL LYMPH # Normal [facility] Comment on above: Performed By: #### B UN, CREA #### [facility] [address] [place] [address] Dr. Soo Donnelly ATYPICAL LYMPH % Normal [facility] Comment on above: Performed By: #### B UN, CREA #### [facility] [address] [place] [address] Dr. Soo Donnelly BAND # Normal 0.0-0.3 [facility] Comment on above: Performed By: #### B UN, CREA #### [facility] [address] [place] [address] Dr. Soo Donnelly BAND % Normal 0-5 [facility] Comment on above: Performed By: #### B UN, CREA #### [facility] [address] [place] [address] Dr. Soo Donnelly BASOM # 0.00 103/ul Normal 0.00-0.10 [facility] Comment on above: Performed By: #### B UN, CREA #### [facility] [address] [place] [address] Dr. Soo Donnelly BASOM % 0.0 % Critically low 0.2-2.0 [facility] Comment on above: Performed By: #### B UN, CREA #### [facility] [address] [place] [address] Dr. Soo Donnelly BLAST # Normal [facility] Comment on above: Performed By: #### B UN, CREA #### [facility] [address] [place] [address] Dr. Soo Donnelly BLAST % Normal [facility] Comment on above: Performed By: #### B UN, CREA #### [facility] [address] [place] [address] Dr. Soo Donnelly CORRECTED WBC Normal 4.0-11.0 [facility] Comment on above: Performed By: #### B UN, CREA #### [facility] [address] [place] [address] Dr. Soo Donnelly EOS # 0.31 103/ul Normal 0.00-0.70 [facility] Comment on above: Performed By: #### B UN, CREA #### [facility] [address] [place] [address] Dr. Soo Donnelly EOS% 2.0 % Normal 0.9-7.0 [facility] Comment on above: Performed By: #### B UN, CREA #### [facility] [address] [place] [address] Dr. Soo Donnelly HCT 41.6 % Normal 36.0-48.0 [facility] Comment on above: Performed By: #### B UN, CREA #### [facility] [address] [place] [address] Dr. Soo Donnelly HGB 13.8 g/dl Normal 12.0-16.0 [facility] Comment on above: Performed By: #### B UN, CREA #### [facility] [address] [place] [address] Dr. Soo Donnelly LYMPHM # 5.27 103/ul Critically high 1.20-3.80 [facility] Comment on above: Performed By: #### B UN, CREA #### [facility] [address] [place] [address] Dr. Soo Donnelly LYMPHM% 34.0 % Normal 20.5-60.0 [facility] Comment on above: Performed By: #### B UN, CREA #### [facility] [address] [place] [address] Dr. Soo Donnelly MCH 31.5 pg Normal 26.7-34.0 [facility] Comment on above: Performed By: #### B UN, CREA #### [facility] [address] [place] [address] Dr. Soo Donnelly MCHC 33.2 g/dl Normal 29.9-35.2 [facility] Comment on above: Performed By: #### B UN, CREA #### [facility] [address] [place] [address] Dr. Soo Donnelly MCV 95.0 fL Normal 81.0-99.0 [facility] Comment on above: Performed By: #### B UN, CREA #### [facility] [address] [place] [address] Dr. Soo Donnelly METAMYELOCYTE # Normal [facility] Comment on above: Performed By: #### B UN, CREA #### [facility] [address] [place] [address] Dr. Soo Donnelly METAMYELOCYTE % Normal [facility] Comment on above: Performed By: #### B UN, CREA #### [facility] [address] [place] [address] Dr. Soo Donnelly MONOM# 0.93 103/ul Critically high 0.30-0.80 [facility] Comment on above: Performed By: #### B UN, CREA #### [facility] [address] [place] [address] Dr. Soo Donnelly MONOM% 6.0 % Normal 1.7-12.0 [facility] Comment on above: Performed By: #### B UN, CREA #### [facility] [address] [place] [address] Dr. Soo Donnelly MPV 10.1 fL Normal 9.5-13.5 [facility] Comment on above: Performed By: #### B UN, CREA #### [facility] [address] [place] [address] Dr. Soo Donnelly MYELOCYTE # Normal [facility] Comment on above: Performed By: #### B UN, CREA #### [facility] [address] [place] [address] Dr. Soo Donnelly MYELOCYTE % Normal [facility] Comment on above: Performed By: #### B UN, CREA #### [facility] [address] [place] [address] Dr. Soo Donnelly NRBC Normal [facility] Comment on above: Performed By: #### B UN, CREA #### [facility] [address] [place] [address] Dr. Soo Donnelly PLT 260 103/ul Normal 150-450 [facility] Comment on above: Performed By: #### B UN, CREA #### [facility] [address] [place] [address] Dr. Soo Donnelly RBC 4.38 106/ul Normal 4.20-5.40 [facility] Comment on above: Performed By: #### B UN, CREA #### [facility] [address] [place] [address] Dr. Soo Donnelly RDW 12.5 % Normal 11.0-15.0 [facility] Comment on above: Performed By: #### B UN, CREA #### [facility] [address] [place] [address] Dr. Soo Donnelly SEG # 8.99 103/ul Critically high 1.40-6.50 [facility] Comment on above: Performed By: #### B UN, CREA #### [facility] [address] [address] [address] Soo Donnelly SEG % 58.0 % Normal 43.0-75.0 [facility] Comment on above: Performed By: #### B UN, CREA #### [facility] [address] [address] [address] Soo Donnelly WBC 15.5 103/ul Critically high 4.0-11.0 [facility] Comment on above: Performed By: #### B UN, CREA #### [facility] [address] [address] [address] Soo Donnelly FREE T3on 07-19-2022 FREE T3 2.62 pg/mlL Normal 2.18-3.98 [facility] Comment on above: Performed By: #### U LG, CRP #### [facility] [address] [place] [address] Dr. Soo Donnelly GLYCOHEMOGLOBIN A1Con 2021 ADA RECOMMENDATION SEE BELOW Normal [facility] Comment on above: Result Comment: ADA RECOMMENDED LIMIT 4.0 - 6.0 ADA THERAPEUTIC TARGET < 7.0 ACTION SUGGESTED > 7.0 Performed By: #### U LG, CRP #### [facility] [address] [place] [address] Dr. Soo Donnelly Glucose [Mass/Vol] 137 mg/dL Normal [facility] Comment on above: Performed By: #### U LG, CRP #### [facility] [address] [address] [address] Soo Donnelly HbA1c (Bld) [Mass fraction] 6.4 % Critically high 4.5-6.2 [facility] Comment on above: Performed By: #### U LG, CRP #### [facility] [address] [place] [address] Dr. Soo Donnelly LIPID PROFILEon 07-19-2022 CHOL-HDL RATIO NORM SEE BELOW Normal [facility] Comment on above: Result Comment: 3.3 - 4.4 LOW RISK 4.4 - 7.1 AVERAGE RISK 7.1 - 11.0 MODERATE RISK >11.0 HIGH RISK Performed By: #### U LG, CRP #### [facility] [address] [address] [address] Soo Donnelly Cholesterol [Mass/Vol] 226 mg/dL Critically high <=200 [facility] [facility] Comment on above: Performed By: #### U LG, CRP #### [facility] [address] [address] [address] Soo Donnelly Cholesterol in HDL [Mass/Vol] 33 mg/dL Critically low 40-60 [facility] Comment on above: Performed By: #### U LG, CRP #### [facility] [address] [address] [address] Soo Donnelly Cholesterol in LDL [Mass/Vol] 135.2 mg/dL Normal [facility] Comment on above: Performed By: #### U LG, CRP #### [facility] [address] [address] [address] Soo Donnelly Cholesterol.total/Chol esterol in HDL [Mass ratio] 6.8 {ratio} Normal [facility] Comment on above: Performed By: #### U LG, CRP #### [facility] [address] [address] [address] Soo Donnelly HDL NORMAL > or = 60 mg/dl - LO W CARDIOVASCULAR RISK <40 mg/dl - HIGH CARDIOVASCULAR RISK Normal [facility] Comment on above: Performed By: #### U LG, CRP #### [facility] [address] [address] [address] Soo Donnelly LDL CALC NORMAL SEE BELOW Normal [facility] Comment on above: Result Comment: <100 mg/dl OPTIMAL 100 - 129 mg/dl NEAR OR ABOVE OPTIMAL 130 - 159 mg/dl BORDERLINE HIGH 160 - 189 mg/dl HIGH >190 mg/dl VERY HIGH Performed By: #### U LG, CRP #### [facility] [address] [address] [address] Soo Donnelly Triglyceride [Mass/Vol] 289 mg/dL Critically high <=150 [facility] Comment on above: Performed By: #### U LG, CRP #### [facility] [address] [address] [address] Soo Donnelly VLDL CALC 57.8 mg/dL Normal [facility] Comment on above: Performed By: #### U LG, CRP #### [facility] [address] [place] [address] Dr. Soo Donnelly PROF 14(COMP METB)on 022 Albumin [Mass/Vol] 3.2 g/dL Critically low 3.4-5.0 [facility] Comment on above: Performed By: #### U LG, CRP #### [facility] [address] [place] [address] Dr. Soo Donnelly Albumin/Globulin [Mass ratio] 1.1 {ratio} Normal [facility] Comment on above: Performed By: #### U LG, CRP #### [facility] [address] [place] [address] Dr. Soo Donnelly ALP [Catalytic activity/Vol] 41 U/L Critically low 46-116 [facility] Comment on above: Performed By: #### U LG, CRP #### [facility] [address] [place] [address] Dr. Soo Donnelly ALT [Catalytic activity/Vol] 46 U/L Normal 14-59 [facility] Comment on above: Performed By: #### U LG, CRP #### [facility] [address] [place] [address] Dr. Soo Donnelly Anion gap [Moles/Vol] 9.3 mmol/L Normal [facility] Comment on above: Performed By: #### U LG, CRP #### [facility] [address] [place] [address] Dr. Soo Donnelly AST [Catalytic activity/Vol] 18 U/L Normal 15-37 [facility] Comment on above: Performed By: #### U LG, CRP #### [facility] [address] [place] [address] Dr. Soo Donnelly Bilirubin [Mass/Vol] 0.7 mg/dL Normal 0.2-1.0 [facility] Comment on above: Performed By: #### U LG, CRP #### [facility] [address] [address] [address] Soo Donnelly Calcium [Mass/Vol] 8.1 mg/dL Critically low 8.5-10.1 [facility] Comment on above: Performed By: #### U GL, CRP #### [facility] [address] [place] [address] Dr. Soo Donnelly Chloride [Moles/Vol] 101 mmol/L Normal 98-107 [facility] Comment on above: Performed By: #### U LG, CRP #### [facility] [address] [place] [address] Dr. Soo Donnelly CO2 [Moles/Vol] 31.1 mmol/L Normal 21.0-32.0 [facility] Comment on above: Performed By: #### U LG, CRP #### [facility] [address] [place] [address] Dr. Soo Donnelly Creatinine [Mass/Vol] 0.77 mg/dL Normal 0.55-1.02 [facility] Comment on above: Performed By: #### U LG, CRP #### [facility] [address] [place] [address] Dr. Soo Donnelly EGFR-AF GABONESE >60 Normal >=60 [facility] Comment on above: Performed By: #### U LG, CRP #### [facility] [address] [place] [address] Dr. Soo Donnelly EGFR-NON AF GABONESE >60 Normal >=60 [facility] Comment on above: Performed By: #### U LG, CRP #### [facility] [address] [place] [address] Dr. Soo Donnelly Globulin (S) [Mass/Vol] 3.0 g/dL Normal [facility] Comment on above: Performed By: #### U LG, CRP #### [facility] [address] [place] [address] Dr. Soo Donnelly Glucose [Mass/Vol] 104 mg/dL Normal 74-106 [facility] Comment on above: Performed By: #### U LG, CRP #### [facility] [address] [place] [address] Dr. Soo Donnelly Potassium [Moles/Vol] 3.4 mmol/L Critically low 3.5-5.1 [facility] Comment on above: Performed By: #### U LG, CRP #### [facility] [address] [place] [address] Dr. Soo Donnelly Protein [Mass/Vol] 6.2 g/dL Critically low 6.4-8.2 [facility] Comment on above: Performed By: #### U LG, CRP #### [facility] [address] [place] [address] Dr. Soo Donnelly Sodium [Moles/Vol] 138 mmol/L Normal 136-145 [facility] Comment on above: Performed By: #### U LG, CRP #### [facility] [address] [place] [address] Dr. Soo Donnelly Urea nitrogen [Mass/Vol] 16.0 mg/dL Normal 7.0-18.0 [facility] Comment on above: Performed By: #### U LG, CRP #### [facility] [address] [place] [address] Dr. Soo Donnelly Urea nitrogen/Creatinine [Mass ratio] 20.8 mg/mg Normal [facility] Comment on above: Performed By: #### U LG, CRP #### [facility] [address] [place] [address] Dr. Soo Donnelly TSHon 07-19-2022 TSH 3.262 uIU/mL Normal 0.358-3.74 0 [facility] Comment on above: Performed By: #### U LG, CRP #### [facility] [address] [place] [address] Dr. Soo Donnelly CBC AUTO DIFFon 05-18-2022 BASO # 0.0 103/ul Normal 0.0-0.1 [facility] Comment on above: Performed By: #### U LG, CRP #### [facility] [address] [place] [address] Dr. Soo Donnelly Basophils/100 WBC (Bld) 0.2 % Normal 0.2-2.0 [facility] Comment on above: Performed By: #### U LG, CRP #### [facility] [address] [address] [address] Soo Donnelly EO # 0.0 103/ul Normal 0.0-0.7 [facility] Comment on above: Performed By: #### U LG, CRP #### [facility] [address] [address] [address] Soo Donnelly Eosinophils/100 WBC (Bld) 0.2 % Critically low 0.9-7.0 [facility] Comment on above: Performed By: #### U LG, CRP #### [facility] [address] [place] [address] Dr. Soo Donnelly Erythrocyte distribution width (RBC) [Ratio] 12.8 % Normal 11.0-15.0 [facility] Comment on above: Performed By: #### U LG, CRP #### [facility] [address] [place] [address] Dr. Soo Donnelly Hematocrit (Bld) [Volume fraction] 35.7 % Critically low 36.0-48.0 [facility] Comment on above: Performed By: #### U LG, CRP #### [facility] [address] [place] [address] Dr. Soo Donnelly Hemoglobin (Bld) [Mass/Vol] 11.5 g/dL Critically low 12.0-16.0 [facility] Comment on above: Performed By: #### U LG, CRP #### [facility] [address] [place] [address] Dr. Soo Donnelly IG # 0.07 10e3/ul Critically high 0.00-0.03 [facility] Comment on above: Performed By: #### U LG, CRP #### [facility] [address] [place] [address] Dr. Soo Donnelly IG % 0.5 % Normal 0.0-0.5 [facility] Comment on above: Performed By: #### U LG, CRP #### [facility] [address] [place] [address] Dr. Soo Donnelly LYMPH # 4.1 103/ul Critically high 1.2-3.8 [facility] Comment on above: Performed By: #### U LG, CRP #### [facility] [address] [address] [address] Soo Donnelly Lymphocytes/100 WBC (Bld) 28.3 % Normal 20.5-60.0 [facility] Comment on above: Performed By: #### U LG, CRP #### [facility] [address] [address] [address] Soo Donnelly MANUAL DIFF REQ NO Normal [facility] Comment on above: Performed By: #### U LG, CRP #### [facility] [address] [address] [address] Soo Donnelly MCH (RBC) [Entitic mass] 31.7 pg Normal 26.7-34.0 [facility] Comment on above: Performed By: #### U LG, CRP #### [facility] [address] [place] [address] Dr. Soo Donnelly MCHC (RBC) [Mass/Vol] 32.2 g/dL Normal 29.9-35.2 [facility] Comment on above: Performed By: #### U LG, CRP #### [facility] [address] [address] [address] Soo Donnelly MCV (RBC) [Entitic vol] 98.3 fL Normal 81.0-99.0 [facility] Comment on above: Performed By: #### U LG, CRP #### [facility] [address] [place] [address] Dr. Soo Donnelly MONO # 0.8 103/ul Normal 0.3-0.8 [facility] Comment on above: Performed By: #### U LG, CRP #### [facility] [address] [address] [address] Soo Donnelly Monocytes/100 WBC (Bld) 5.6 % Normal 1.7-12.0 [facility] Comment on above: Performed By: #### U LG, CRP #### [facility] [address] [address] [address] Soo Donnelly NEUT # 9.4 103/ul Critically high 1.4-6.5 [facility] Comment on above: Performed By: #### U LG, CRP #### [facility] [address] [place] [address] Dr. Soo Donnelly Neutrophils/100 WBC (Bld) 65.2 % Normal 43.0-75.0 [facility] Comment on above: Performed By: #### U LG, CRP #### [facility] [address] [address] [address] Soo Donnelly Platelet mean volume (Bld) [Entitic vol] 10.8 fL Normal 9.5-13.5 [facility] Comment on above: Performed By: #### U LG, CRP #### [facility] [address] [place] [address] Dr. Soo Donnelly PLT 191 103/ul Normal 150-450 [facility] Comment on above: Performed By: #### U LG, CRP #### [facility] [address] [place] [address] Dr. Soo Donnelly RBC 3.63 106/ul Critically low 4.20-5.40 [facility] Comment on above: Performed By: #### U LG, CRP #### [facility] [address] [place] [address] Dr. Soo Donnelly WBC 14.4 103/ul Critically high 4.0-11.0 [facility] Comment on above: Performed By: #### U LG, CRP #### [facility] [address] [place] [address] Dr. Soo Donnelly BUNon 05-17-2022 Urea nitrogen [Mass/Vol] 8.0 mg/dL Normal 7.0-18.0 [facility] Comment on above: Performed By: #### B UN, CREA #### [facility] [address] [place] [address] Dr. Soo Donnelly CBC AUTO DIFFon 05-17-2022 BASO # 0.0 103/ul Normal 0.0-0.1 [facility] Comment on above: Performed By: #### U LG, CRP #### [facility] [address] [place] [address] Dr. Soo Donnelly Basophils/100 WBC (Bld) 0.1 % Critically low 0.2-2.0 [facility] Comment on above: Performed By: #### U LG, CRP #### [facility] [address] [place] [address] Dr. Soo Donnelly EO # 0.0 103/ul Normal 0.0-0.7 [facility] Comment on above: Performed By: #### U LG, CRP #### [facility] [address] [place] [address] Dr. Soo Donnelly Eosinophils/100 WBC (Bld) 0.0 % Critically low 0.9-7.0 [facility] Comment on above: Performed By: #### U LG, CRP #### [facility] [address] [place] [address] Dr. Soo Donnelly Erythrocyte distribution width (RBC) [Ratio] 12.5 % Normal 11.0-15.0 [facility] Comment on above: Performed By: #### U LG, CRP #### [facility] [address] [place] [address] Dr. Soo Donnelly Hematocrit (Bld) [Volume fraction] 38.5 % Normal 36.0-48.0 [facility] Comment on above: Performed By: #### U LG, CRP #### [facility] [address] [place] [address] Dr. Soo Donnelly Hemoglobin (Bld) [Mass/Vol] 13.0 g/dL Normal 12.0-16.0 [facility] Comment on above: Performed By: #### U LG, CRP #### [facility] [address] [place] [address] Dr. Soo Donnelly IG # 0.16 10e3/ul Critically high 0.00-0.03 [facility] Comment on above: Performed By: #### U LG, CRP #### [facility] [address] [place] [address] Dr. Soo Donnelly IG % 0.7 % Critically high 0.0-0.5 [facility] Comment on above: Performed By: #### U LG, CRP #### [facility] [address] [address] [address] Soo Donnelly LYMPH # 3.0 103/ul Normal 1.2-3.8 [facility] Comment on above: Performed By: #### U LG, CRP #### [facility] [address] [address] [address] Soo Donnelly Lymphocytes/100 WBC (Bld) 12.2 % Critically low 20.5-60.0 [facility] Comment on above: Performed By: #### U LG, CRP #### [facility] [address] [address] [address] Soo Donnelly MANUAL DIFF REQ NO Normal [facility] Comment on above: Performed By: #### U LG, CRP #### [facility] [address] [place] [address] Dr. Soo Donnelly MCH (RBC) [Entitic mass] 32.4 pg Normal 26.7-34.0 [facility] Comment on above: Performed By: #### U LG, CRP #### [facility] [address] [place] [address] Dr. Soo Donnelly MCHC (RBC) [Mass/Vol] 33.8 g/dL Normal 29.9-35.2 [facility] Comment on above: Performed By: #### U LG, CRP #### [facility] [address] [place] [address] Dr. Soo Donnelly MCV (RBC) [Entitic vol] 96.0 fL Normal 81.0-99.0 [facility] Comment on above: Performed By: #### U LG, CRP #### [facility] [address] [place] [address] Dr. Soo Donnelly MONO # 1.3 103/ul Critically high 0.3-0.8 [facility] Comment on above: Performed By: #### U LG, CRP #### [facility] [address] [place] [address] Dr. Soo Donnelly Monocytes/100 WBC (Bld) 5.4 % Normal 1.7-12.0 [facility] Comment on above: Performed By: #### U LG, CRP #### [facility] [address] [address] [address] Soo Donnelly NEUT # 19.8 103/ul Critically high 1.4-6.5 [facility] Comment on above: Performed By: #### U LG, CRP #### [facility] [address] [address] [address] Soo Donnelly Neutrophils/100 WBC (Bld) 81.6 % Critically high 43.0-75.0 [facility] Comment on above: Performed By: #### U LG, CRP #### [facility] [address] [address] [address] Soo Donnelly Platelet mean volume (Bld) [Entitic vol] 10.5 fL Normal 9.5-13.5 [facility] Comment on above: Performed By: #### U LG, CRP #### [facility] [address] [place] [address] Dr. Soo Donnelly PLT 253 103/ul Normal 150-450 [facility] Comment on above: Performed By: #### U LG, CRP #### [facility] [address] [place] [address] Dr. Soo Donnelly RBC 4.01 106/ul Critically low 4.20-5.40 [facility] Comment on above: Performed By: #### U LG, CRP #### [facility] [address] [place] [address] Dr. Soo Donnelly WBC 24.3 103/ul Critically high 4.0-11.0 [facility] Comment on above: Performed By: #### U LG, CRP #### [facility] [address] [place] [address] Dr. Soo Donnelly BASO # 0.0 103/ul Normal 0.0-0.1 [facility] Comment on above: Performed By: #### U LG, CRP #### [facility] [address] [place] [address] Dr. Soo Donnelly Basophils/100 WBC (Bld) 0.1 % Critically low 0.2-2.0 [facility] Comment on above: Performed By: #### U LG, CRP #### [facility] [address] [place] [address] Dr. Soo Donnelly EO # 0.0 103/ul Normal 0.0-0.7 [facility] Comment on above: Performed By: #### U LG, CRP #### [facility] [address] [place] [address] Dr. Soo Donnelly Eosinophils/100 WBC (Bld) 0.0 % Critically low 0.9-7.0 [facility] Comment on above: Performed By: #### U LG, CRP #### [facility] [address] [place] [address] Dr. Soo Donnelly Erythrocyte distribution width (RBC) [Ratio] 12.3 % Normal 11.0-15.0 [facility] Comment on above: Performed By: #### U LG, CRP #### [facility] [address] [place] [address] Dr. Soo Donnelly Hematocrit (Bld) [Volume fraction] 41.2 % Normal 36.0-48.0 [facility] Comment on above: Performed By: #### U LG, CRP #### [facility] [address] [place] [address] Dr. Soo Donnelly Hemoglobin (Bld) [Mass/Vol] 13.5 g/dL Normal 12.0-16.0 [facility] Comment on above: Performed By: #### U LG, CRP #### [facility] [address] [place] [address] Dr. Soo Donnelly IG # 0.11 10e3/ul Critically high 0.00-0.03 [facility] Comment on above: Performed By: #### U LG, CRP #### [facility] [address] [place] [address] Dr. Soo Donnelly IG % 0.5 % Normal 0.0-0.5 [facility] Comment on above: Performed By: #### U LG, CRP #### [facility] [address] [place] [address] Dr. Soo Donnelly LYMPH # 1.6 103/ul Normal 1.2-3.8 [facility] Comment on above: Performed By: #### U LG, CRP #### [facility] [address] [address] [address] Soo Donnelly Lymphocytes/100 WBC (Bld) 7.8 % Critically low 20.5-60.0 [facility] Comment on above: Performed By: #### U LG, CRP #### [facility] [address] [address] [address] Soo Donnelly MANUAL DIFF REQ NO Normal [facility] Comment on above: Performed By: #### U LG, CRP #### [facility] [address] [address] [address] Soo Donnelly MCH (RBC) [Entitic mass] 31.8 pg Normal 26.7-34.0 [facility] Comment on above: Performed By: #### U LG, CRP #### [facility] [address] [place] [address] Dr. Soo Donnelly MCHC (RBC) [Mass/Vol] 32.8 g/dL Normal 29.9-35.2 [facility] Comment on above: Performed By: #### U LG, CRP #### [facility] [address] [address] [address] Soo Donnelly MCV (RBC) [Entitic vol] 96.9 fL Normal 81.0-99.0 [facility] Comment on above: Performed By: #### U LG, CRP #### [facility] [address] [address] [address] Soo Donnelly MONO # 0.4 103/ul Normal 0.3-0.8 [facility] Comment on above: Performed By: #### U LG, CRP #### [facility] [address] [address] [address] Soo Donnelly Monocytes/100 WBC (Bld) 2.0 % Normal 1.7-12.0 [facility] Comment on above: Performed By: #### U LG, CRP #### [facility] [address] [address] [address] Soo Donnelly NEUT # 18.1 103/ul Critically high 1.4-6.5 [facility] Comment on above: Performed By: #### U LG, CRP #### [facility] [address] [address] [address] Soo Donnelly Neutrophils/100 WBC (Bld) 89.6 % Critically high 43.0-75.0 [facility] Comment on above: Performed By: #### U LG, CRP #### [facility] [address] [address] [address] Soo Donnelly Platelet mean volume (Bld) [Entitic vol] 11.0 fL Normal 9.5-13.5 [facility] Comment on above: Performed By: #### U LG, CRP #### [facility] [address] [place] [address] Dr. Soo Donnelly PLT 223 103/ul Normal 150-450 [facility] Comment on above: Performed By: #### U LG, CRP #### [facility] [address] [place] [address] Dr. Soo Donnelly RBC 4.25 106/ul Normal 4.20-5.40 [facility] Comment on above: Performed By: #### U LG, CRP #### [facility] [address] [address] [address] Soo Donnelly WBC 20.2 103/ul Critically high 4.0-11.0 [facility] Comment on above: Performed By: #### U LG, CRP #### [facility] [address] [place] [address] Dr. Soo Donnelly CREATININEon 05-17-2022 Creatinine [Mass/Vol] 0.97 mg/dL Normal 0.55-1.02 [facility] Comment on above: Performed By: #### B UN, CREA #### [facility] [address] [place] [address] Dr. oSo Donnelly EGFR-AF GABONESE >60 Normal >=60 [facility] Comment on above: Performed By: #### B UN, CREA #### [facility] [address] [place] [address] Dr. Soo Donnelly EGFR-NON AF GABONESE >60 Normal >=60 [facility] Comment on above: Performed By: #### B KYMBERLY MARSHALL #### [facility] [address] [address] [address] Soo Donnelly CTA CHEST WO W [...] ELENA SAUCEDA Date: 2022-05-17 16:40 Normal [facility] XR CHEST 2 Von 05-17-2022 [...] by: SAMI JONES Date: 2022-05-17 16:10 Normal [facility] CBC AUTO DIFFon 05-16-2022 BASO # 0.1 103/ul Normal 0.0-0.1 [facility] Comment on above: Performed By: #### B UN, CREA #### [facility] [address] [place] [address] Dr. Soo Donnelly Basophils/100 WBC (Bld) 0.5 % Normal 0.2-2.0 [facility] Comment on above: Performed By: #### B UN, CREA #### [facility] [address] [place] [address] Dr. Soo Donnelly EO # 0.1 103/ul Normal 0.0-0.7 [facility] Comment on above: Performed By: #### B UN, CREA #### [facility] [address] [place] [address] Dr. Soo Donnelly Eosinophils/100 WBC (Bld) 1.0 % Normal 0.9-7.0 [facility] Comment on above: Performed By: #### B UN, CREA #### [facility] [address] [place] [address] Dr. Soo Donnelly Erythrocyte distribution width (RBC) [Ratio] 12.2 % Normal 11.0-15.0 [facility] Comment on above: Performed By: #### B UN, CREA #### [facility] [address] [place] [address] Dr. Soo Donnelly Hematocrit (Bld) [Volume fraction] 41.2 % Normal 36.0-48.0 [facility] Comment on above: Performed By: #### B UN, CREA #### [facility] [address] [place] [address] Dr. Soo Donnelly Hemoglobin (Bld) [Mass/Vol] 13.9 g/dL Normal 12.0-16.0 [facility] Comment on above: Performed By: #### B UN, CREA #### [facility] [address] [place] [address] Dr. Soo Donnelly IG # 0.04 10e3/ul Critically high 0.00-0.03 [facility] Comment on above: Performed By: #### B UN, CREA #### [facility] [address] [place] [address] Dr. Soo Donnelly IG % 0.4 % Normal 0.0-0.5 [facility] Comment on above: Performed By: #### B UN, CREA #### [facility] [address] [place] [address] Dr. Soo Donnelly LYMPH # 3.5 103/ul Normal 1.2-3.8 [facility] Comment on above: Performed By: #### B UN, CREA #### [facility] [address] [place] [address] Dr. Soo Donnelly Lymphocytes/100 WBC (Bld) 35.3 % Normal 20.5-60.0 [facility] Comment on above: Performed By: #### B UN, CREA #### [facility] [address] [place] [address] Dr. Soo Donnelly MANUAL DIFF REQ NO Normal [facility] Comment on above: Performed By: #### B UN, CREA #### [facility] [address] [place] [address] Dr. Soo Donnelly MCH (RBC) [Entitic mass] 31.7 pg Normal 26.7-34.0 [facility] Comment on above: Performed By: #### B UN, CREA #### [facility] [address] [place] [address] Dr. Soo Donnelly MCHC (RBC) [Mass/Vol] 33.7 g/dL Normal 29.9-35.2 [facility] Comment on above: Performed By: #### B UN, CREA #### [facility] [address] [place] [address] Dr. Soo Donnelly MCV (RBC) [Entitic vol] 94.1 fL Normal 81.0-99.0 [facility] Comment on above: Performed By: #### B UN, CREA #### [facility] [address] [place] [address] Dr. Soo Donnelly MONO # 0.5 103/ul Normal 0.3-0.8 [facility] Comment on above: Performed By: #### B UN, CREA #### [facility] [address] [place] [address] Dr. Soo Donnelly Monocytes/100 WBC (Bld) 5.4 % Normal 1.7-12.0 [facility] Comment on above: Performed By: #### B UN, CREA #### [facility] [address] [place] [address] Dr. Soo Donnelly NEUT # 5.6 103/ul Normal 1.4-6.5 [facility] Comment on above: Performed By: #### B UN, CREA #### [facility] [address] [place] [address] Dr. Soo Donnelly Neutrophils/100 WBC (Bld) 57.4 % Normal 43.0-75.0 [facility] Comment on above: Performed By: #### B UN, CREA #### [facility] [address] [place] [address] Dr. Soo Donnelly Platelet mean volume (Bld) [Entitic vol] 10.3 fL Normal 9.5-13.5 [facility] Comment on above: Performed By: #### B UN, CREA #### [facility] [address] [place] [address] Dr. Soo Donnelly PLT 235 103/ul Normal 150-450 [facility] Comment on above: Performed By: #### B UN, CREA #### [facility] [address] [place] [address] Dr. Soo Donnelly RBC 4.38 106/ul Normal 4.20-5.40 [facility] Comment on above: Performed By: #### B UN, CREA #### [facility] [address] [place] [address] Dr. Soo Donnelly WBC 9.8 103/ul Normal 4.0-11.0 [facility] Comment on above: Performed By: #### B UN, CREA #### [facility] [address] [place] [address] Dr. Soo Donnelly PREG QUANT HCGon 05-16-2022 HCG QUANT <1 Normal [facility] Comment on above: Performed By: #### U LG, CRP #### [facility] [address] [place] [address] Dr. Soo Donnelly HCG RANGE SEE BELOW Normal [facility] Comment on above: Result Comment: 5-50 0-1 WEEK 40-300 1-2 WEEKS 100-1,000 2-3 WEEKS 500-6,000 3-4 WEEKS 5,000-200,000 1-2 MONTHS 10,000-100,000 2-3 MONTHS 3,000-50,000 2ND TRIMESTER 1,000-50,000 3RD TRIMESTER Performed By: #### U LG, CRP #### [facility] [address] [place] [address] Dr. Soo Donnelly Covid-19 PCR (CVDTB)on 05-01 SARS-CoV-2 (COVID-19) RNA NOLA+probe Ql (Unsp spec) Not detected Normal NOT DETECTED [facility] Comment on above: Result Comment: This test is not yet approved or cleared by the [place] FDA. When there are no FDA-approved or cleared tests available, and other criteria are met, FDA can make tests available under an emergency access mechanism called an Emergency Use Authorization (EUA). The EUA for this test is supported by the [place] of Health and Human Service's (HHS's) declaration [...] SARS-CoV-2. Performed By: #### C VDTBH #### [facility] [address] [place], [place] [id number] Dr. Soo Donnelly TYPE AND SCREENon 05-13-2022 TYPE AND SCREEN Negative Normal [facility] Comment on above: Performed By: #### B UN, CREA #### [facility] [address] [place], [place] [id number] Dr. Soo Donnelly PAP ACOG PANEL 2: 30 to 65on 05-07-2022 . . Normal [facility] Comment on above: Result Comment: Perf ormed at: WB Performed By: #### [id number] #### [facility] [address] [address] [address] Soo Donnelly Age Gdln ACOG Testing 30-65 [facility] Comment on above: Performed By: #### [id number] #### [facility] [address] [address] [address] Soo Donnelly DIAGNOSIS: Comment Normal [facility] Comment on above: Result Comment: NEGA TIVE FOR INTRAEPITHELIAL LESION OR MALIGNANCY. Performed at: WB Performed By: #### [id number] #### [facility] [address] [address] [address] Soo Donnelly HPV Aptima Negative Normal Negative [facility] Comment on above: Result Comment: This nucleic acid amplification test detects fourteen high-risk HPV types (16,18,31,33,35,39,45,51,52,56,58,59,66,68) without differentiation. Performed at: =G Performed By: #### [id number] #### [facility] [address] [place] [address] Dr. Soo Donnelly Methodology: Comment [facility] Comment on above: Result Comment: This liquid based ThinPrep(R) pap test was screened with the use of an image guided system. Performed at: WB Performed By: #### [id number] #### [facility] [address] [address] [address] Soo Donnelly Note: Comment [facility] Comment on above: Result [...] Performed at: WB Performed By: #### [id number] #### [facility] [address] [address] [address] Soo Donnelly Performed by: Comment Normal [facility] Comment on above: Result Comment: Ortiz n Rod, Informatics Developer (ASCP) Performed at: WB Performed By: #### [id number] #### [facility] [address] [place] [address] Dr. Soo Donnelly Specimen adequacy: Comment Normal [facility] Comment on above: Result Comment: Sati sfactory for evaluation. Endocervical and/or squamous metaplastic cells (endocervical component) are present. Performed at: WB Performed By: #### [id number] #### [facility] [address] [place] [address] Dr. Soo Donnelly ROSS by IFAon 02-21-2022 Antinuclear Antibodies, IFA Negative Normal [facility] Comment on above: Result Comment: Nega tive <1:80 Borderline 1:80 Positive >1:80 ICAP nomenclature: [id number] For more information about Hep-2 cell patterns use ANApatterns.org, the official website for the International Consensus on Antinuclear Antibody (ROSS) Patterns (ICAP). Performed By: #### U LG, CRP #### [facility] [address] [place] [address] Dr. Soo Donnelly ROSS DIRECTon 02-20-2022 ROSS Direct Negative Normal Negative [facility] Comment on above: Performed By: #### A NAD #### [facility] [address] [place] [address] Dr. Soo Donnelly ANTISTREPTOLYSIN O AB (ASO)o n 02-20-2022 Antistreptolysin O Ab 115.3 IU/mL Normal 0.0-200.0 [facility] Comment on above: Performed By: #### B UN, CREA #### [facility] [address] [place] [address] Dr. Soo Donnelly C3 and C4 COMPLEMENTon 02-20 Complement C3, Serum 137 mg/dL Normal 82-167 [facility] Comment on above: Performed By: #### U LG, CRP #### [facility] [address] [place] [address] Dr. Soo Donnelly Complement C4, Serum 23 mg/dL Normal 12-38 [facility] Comment on above: Performed By: #### U LG, CRP #### [facility] [address] [place] [address] Dr. Soo Donnelly SLE PROFILE Aon 02-20-2022 Anti-DNA (DS) Ab Qn <1 Normal 0-9 [facility] Comment on above: Result Comment: Nega tive <5 Equivocal 5 - 9 Positive >9 Performed By: #### S YARI #### [facility] [address] [place] [address] Dr. Soo Donnelly Antichromatin Antibodies <0.2 Normal 0.0-0.9 [facility] Comment on above: Performed By: #### S YARI #### [facility] [address] [place] [address] Dr. Soo Donnelly RA Latex Turbid. <10.0 Normal <14.0 [facility] Comment on above: Performed By: #### S YARI #### [facility] [address] [place] [address] Dr. Soo Donnelly ARCH PAD CEMENTER Antibodies <0.2 Normal 0.0-0.9 [facility] Comment on above: Performed By: #### S YARI #### [facility] [address] [place] [address] Dr. Soo Donnelly Sjogrdaniela's Anti-SS-A <0.2 Normal 0.0-0.9 [facility] Comment on above: Performed By: #### S YARI #### [facility] [address] [place] [address] Dr. Soo Donnelly Sjogren's Anti-SS-B <0.2 Normal 0.0-0.9 [facility] Comment on above: Performed By: #### S YARI #### [facility] [address] [place] [address] Dr. Soo Donnelly Spann Antibodies <0.2 Normal 0.0-0.9 [facility] Comment on above: Performed By: #### S YARI #### [facility] [address] [place] [address] Dr. Soo Donnelly CRPon 02-19-2022 CRP [Mass/Vol] mg/L Normal <=1.0 [facility] Comment on above: Performed By: #### U LG, CRP #### [facility] [address] [place] [address] Dr. Soo Donnelly URIC ACID SERUMon 02-19-2022 Urate [Mass/Vol] 4.7 mg/dL Normal 2.5-6.2 [facility] Comment on above: Performed By: #### U LG, CRP #### [facility] [address] [address] [address] Soo Donnelly XR CSPINE MIN 4 [...] ABIGAIL GONSALVES Date: 2022-02-19 16:33 Normal [facility] XR HAND DEAN MIN 3Von [...] by: ABIGAIL GONSALVES Date: 2022-02-19 16:28 Normal [facility] ASYMPTOMATIC COVID-19 ANTIGE Non 12-04-2021 EUA Statement SEE BELOW Normal [facility] Comment on above: Result Comment: This [...] sooner. Performed By: #### C VDAGA #### [facility] [address] [place] [address] Dr. Soo Donnelly SARS-CoV-2 (COVID-19) RNA NOLA+probe Ql (Unsp spec) Negative Normal NEGATIVE [facility] Comment on above: Result Comment: Nega tive results are presumptive. They do not preclude infection and should not be used as the sole basis for treatment decisions. Additional confirmatory testing by a molecular method should be considered. Performed By: #### C VDAGA #### [facility] [address] [place] [address] Dr. Soo Donnelly Covid-19 PCR (CVDTB)on SARS-CoV-2 (COVID-19) RNA NOLA+probe Ql (Unsp spec) Not detected Normal NOT DETECTED [facility] Comment on above: Result Comment: This test is not yet approved or cleared by the [place] FDA. When there are no FDA-approved or cleared tests available, and other criteria are met, FDA can make tests available under an emergency access mechanism called an Emergency Use Authorization (EUA). The EUA for this test is supported by the [place] of Health and Human Service's (HHS's) declaration [...] Performed By: #### U LG, CRP #### [facility] [address] [place] [address] Dr. Soo Donnelly Vital Signs Date Time Vital Sign Value Performing Clinician Facility 02-03-2025 08:24-0500 Body height 167.6 cm Tiesha Michellelizeth [employer] Work Phone: [facility] 02-03-2025 08:24-0500 Body mass index (BMI) [Ratio] 29.7 kg/m2 Tiesha Michellemor [employer] Work Phone: [facility] 02-03-2025 08:24-0500 Body weight 83.46 kg Tiesha Vernonr [employer] Work Phone: [facility] 02-03-2025 08:24-0500 Diastolic blood pressure 76 mm[Hg] Tiesha Martinezmor [employer] Work Phone: [facility] 02-03-2025 08:24-0500 Heart rate 75 /min Tiesha Michellemor [employer] Work Phone: [facility] 02-03-2025 08:24-0500 SaO2% (BldA) [Mass fraction] 97 % Tiesha Michellegiselr [employer] Work Phone: [facility] 02-03-2025 08:24-0500 Systolic blood pressure 128 mm[Hg] Tiesha Michellemor [employer] Work Phone: [facility] 11-22-2024 13:21-0500 Body mass index (BMI) [Ratio] 28.66 kg/m2 Delgado Lidia DO Work Phone: [facility] 11-22-2024 13:21-0500 Body weight 83.01 kg Delgado Lidia DO Work Phone: [facility] 11-22-2024 13:21-0500 Diastolic blood pressure 80 mm[Hg] Delgado Lidia DO Work Phone: [facility] 11-22-2024 13:21-0500 Systolic blood pressure 128 mm[Hg] Delgado Murillo DO Work Phone: [facility] 11-01-2024 14:30-0500 Blood Pressure Location Vinayak Lewisli [facility] 11-01-2024 14:30-0500 Diastolic blood pressure 74 mm[Hg] Mohamad Mouchli [facility] 11-01-2024 14:30-0500 Heart rate 93 /min Mohamad Mouchli [facility] 11-01-2024 14:30-0500 Respiratory rate 16 /min Deenad Mouchli [facility] 11-01-2024 14:30-0500 Systolic blood pressure 112 mm[Hg] Deenad Mouchli [facility] 10-20-2024 11:08-0500 Body height 167.6 cm P[facility] 1 [facility] 10-20-2024 11:08-0500 Body mass index (BMI) [Ratio] 28.41 kg/m2 Pmh 1 [facility] 10-20-2024 11:08-0500 Body weight 79.83 kg Pmh 1 [facility] 10-13-2024 14:20-0500 Body height 170.2 cm Becca Schwarz [employer]ACHINE [employer]ED[employer] Work Phone: [facility] 10-13-2024 14:20-0500 Body mass index (BMI) [Ratio] 28.51 kg/m2 Becca Chong [employer] Work Phone: [facility] 10-13-2024 14:20-0500 Body weight 82.56 kg Becca Schwarz [employer]ACHINE [employer]EDER Work Phone: [facility] 11-01-2022 15:19-0500 Blood Pressure Location Nicola CANDELARIOL [facility] [place] 11-01-2022 15:19-0500 Diastolic blood pressure 80 mm[Hg] Nicola CANDELARIOL [facility] [place] 11-01-2022 15:19-0500 Heart rate 72 /min Nicola CANDELARIOL [facility] [place] 11-01-2022 15:19-0500 Respiratory rate 16 /min Nicola CANDELARIOL [facility] [place] 11-01-2022 15:19-0500 Systolic blood pressure 118 mm[Hg] Nicola CANDELARIOL [employer] [facility] [place] 10-01-2022 16:30-0400 Body height 170.18 cm Clarice Scally Other [employer] Other 10-01-2022 16:30-0400 Body mass index (BMI) [Ratio] 32.84 kg/m2 Clarice Scally Other [employer] Other 10-01-2022 16:30-0400 Body weight 95.12 kg Clarice Scally Other [employer] Other 10-01-2022 16:30-0400 Diastolic blood pressure 82 mm[Hg] Clarice Scally Other [employer] Other 10-01-2022 16:30-0400 Respiratory rate 18 /min Clarice Scally Other [employer] Other 10-01-2022 16:30-0400 SaO2% (BldA) [Mass fraction] 97 % Clarice Scally Other [employer] Other 10-01-2022 16:30-0400 Systolic blood pressure 116 mm[Hg] Clarice Hull Other [employer] Other 08-28-2022 14:30-0400 Body height 170.18 cm Nahidtrell Elisediff Other [employer] Other 08-28-2022 14:30-0400 Body mass index (BMI) [Ratio] 34.55 kg/m2 Nahid Mccoy Other [employer] Other 08-28-2022 14:30-0400 Body weight 100.06 kg Nahid Darius Other [employer] Other 08-28-2022 14:30-0400 Diastolic blood pressure 82 mm[Hg] Nahid Mccoy Other [employer] Other 08-28-2022 14:30-0400 Respiratory rate 18 /min Nahid Darius Other [employer] Other 08-28-2022 14:30-0400 SaO2% (BldA) [Mass fraction] 97 % Nahid Mccoy Other [employer] Other 08-28-2022 14:30-0400 Systolic blood pressure 121 mm[Hg] Nahid Mccoy Other [employer] Other Encounters Encounter Date Encounter Type Care Provider Facility Start: 02-07-2025 End: 02-07-2025 ambulatory Vinayak Baltazar Facility:[facility] Start: 02-03-2025 End: 02-03-2025 Bamboo flowsheet Tiesha Hughes NP Work Phone: [facility] Start: 02-03-2025 End: 02-03-2025 Bamboo flowsheet Tiesha Hughes [employer] Work Phone: [facility] Start: 02-03-2025 End: 02-03-2025 Office outpatient visit 25 minutes Tiesha Hughes [employer] Work Phone: [facility] Comment on above: LIZZETH (obstructive sle ep apnea) (Primary Dx); Hypoxia; Hypersomnia; Primary insomnia; Snoring Start: 02-03-2025 End: 02-03-2025 ambulatory TIESHA HUGHES Not Available Start: 02-01-2025 End: 02-01-2025 Patient encounter procedure [facility] [address] Work Phone: Start: 02-01-2025 End: 02-01-2025 ambulatory Carol Vidal Facility:[facility] Start: 11-22-2024 End: 11-22-2024 Bamboo flowsheet Delgado [...] 11-15-2024 End: 11-15-2024 ambulatory Hebert Jara MD Facility: [facility] Start: 11-01-2024 End: 11-01-2024 ambulatory Vinayak Baltazar Facility:[facility] Start: 11-01-2024 End: 11-01-2024 Patient encounter procedure Vinayak Baltazar [facility] Start: 10-27-2024 End: 10-27-2024 Evaluation and management of inpatient TATYANA CKOER [facility] Start: 10-20-2024 End: 10-20-2024 ambulatory [facility] Pat Phone Call Provider [address] [facility] - Pre Admit Start: 10-20-2024 End: 10-20-2024 ambulatory SAMI MCCARTY [facility] Start: 10-18-2024 End: 10-18-2024 ambulatory Hebert Jara MD Facility:[facility] Start: 10-14-2024 ambulatory Vinayak Baltazar Facilit y:[facility] Start: 10-13-2024 End: 10-13-2024 Office outpatient new 30 minutes Becca Ravi RealSchwarz [employer]PER RE[employer]ER[employer]PAD MACHINE FEEDER Work Phone: [facility] Comment on above: Positive fecal occul t blood test (Primary Dx); Rectal bleeding; Gastroesophageal reflux disease, unspecified whether esophagitis present Start: 10-13-2024 End: 10-13-2024 ambulatory [facility] Start: 10-04-2024 End: 10-04-2024 ambulatory [facility] Start: 09-27-2024 End: 09-27-2024 Office outpatient visit 15 minutes Delgado Lidia DO Work Phone: [facility] Comment on above: Encounter to discuss [...] 09-20-2024 End: 09-20-2024 ambulatory Hebert Jara MD Facility:[facility] Start: 09-09-2024 End: 09-09-2024 ambulatory Carol [...] End: 08-30-2024 ambulatory NON STAFF [facility] Work Phone: Start: 04-05-2024 End: 04-05-2024 ambulatory DELGADO LIDIA Not Available Start: 03-15-2024 End: 03-15-2024 Emergency department patient visit Nicola [facility] Facility:[facility] Start: 08-15-2023 End: 08-15-2023 ambulatory NON STAFF [facility] Work Phone: Start: 08-15-2023 End: 08-15-2023 Departed Referred [facility] [address] Work Phone: Start: 12-05-[address] SAMI MCCARTY Facility :[facility] Start: 11-09-2022 End: 11-10-[address] DOCTOR STEIN Facility:[facility] Start: 11-01-2022 End: 11-01-2022 Patient encounter procedure Nicola [facility] Start: 10-29-2022 End: 10-29-2022 ambulatory Clarice Hull Other [employer] Other Start: 10-29-2022 Telephone encounter Clarice Kurtis [facility] Start: 10-14-2022 End: 10-14-2022 ambulatory Clarice Hull Other [employer] Other Start: 10-14-2022 Telephone encounter Clarice harkins [facility] Start: 10-01-2022 ([id number]) Weight Management f/u Clarice Kurtis [facility] Start: 10-01-2022 End: 10-02-[address] LUZ ELENA SAUCEDA [employer] Other Start: 09-19-2022 End: 09-19-2022 ambulatory Nahid Mccoy Other [employer] Other Start: 09-19-2022 Telephone encounter Nahid harkins [facility] Start: 09-18-2022 End: 09-18-[address] LUZ ELENA SAUCEDA Facility:[facility] Start: 09-12-2022 End: 09-13-[address] ABIGAIL GONSALVES Facility:[facility] Start: 08-28-2022 End: 08-28-2022 ambulatory Nahid Mccoy Other [employer] Other Start: 08-28-2022 Nutrition therapy Nahid diaz [facility] Start: 07-22-2022 Encounter for genera l adult medical examination without abnormal findings DR SAMI MCCARTY [facility] Start: 07-19-2022 End: 07-20-2022 ambulatory [...] for preprocedural laboratory examination DR DELGADO MURILLO [facility] Start: 05-13-2022 End: 05-14-[address] DELGADO MURILLO Facility:[facility] Start: 05-13-2022 End: 05-14-2022 Encounter for preprocedural laboratory examination DR DELGADO MURILLO Facility:[facility] Start: 05-11-2022 Encounter for preprocedural cardiovascular examination DR DELGADO MURILLO [facility] Start: 05-08-2022 End: 05-09-[address] SAMI MCCARTY Facility:[facility] Start: 05-08-2022 End: 05-09-2022 Encounter for preprocedural cardiovascular examination DR SAMI MCCARTY Facility:[facility] Start: 05-02-2022 End: 05-02-[address] DELGADO MURILLO Facility:[facility] Start: 02-19-2022 End: 02-20-[address] SAMI MCCARTY Facility:[facility] Start: 12-04-2021 End: 12-04-[address] SAMI MCCARTY Facility:[facility] Procedures Date Procedure Procedure Detail Performing Clinician Start: 01-28-2025 Mammography Tiesha dillon [employer] Work Phone: Start: 11-22-2024 IGP,APTIMA HPV,AGE GDLN Delgado Lidia DO Work Phone: Start: 11-22-2024 Microscopic observat ion [Identifier] in Cervix by Cyto stain Tiesha Hughes [employer] Work Phone: Start: 10-27-2024 Colonoscopy Delgado Fazi o DO Work Phone: Start: 11-27-2023 Mammography Carol [...] DR ABIGAIL GONSALVES Start: 05-28-2021 Colonoscopy Carol Graham lundy PT Work Phone: Start: 11-21-2014 excisional biopsy of enlarging painful recurrent lipomas of the left chest wall and left upper abdomen Nicola BUCHANAN Start: 11-21-2011 Endometrial ablation Mo jad Baltazar Start: 03-28-2003 Cholecystectomy Vinayak Baltazar Abdominoplasty and liposuction Nicola CANDELARIOL Arthroscopy of knee Nicola KODAKL Comment on above: LEFT Breast biopsy and re lated procedures Nicola CANDELARIOL Comment on above: LEFT section Nicola CANDELARIO L Diagnostic endoscopi c examination of ovary Nicola CANDELARIOL Comment on above: OVARIAN CYSTS X3 Endometrial ablation Nicola CANDELARIOL Extraction of wisdom tooth M ichalbaro CANDELARIOL H/O: hysterectomy H/O: hysterectomy Delgado Lidia DO Work Phone: History of cholecystectomy S/P cholecyste ctomy Mohklausd Delaney Laparoscopic cholecystectomy Nicola CANDELARIOL Laparoscopic excisio n of cyst of left ovary Nicola CANDELARIOL Laparoscopic excisio n of cyst of right ovary Nicola BUCHANAN Ligation of fallopian tube Jered BUCHANAN Comment on above: DONE WITH C SECTION LIPOMA EXCISION 4 Nicola IBANEZ DELIO Comment on above: ABDOMEN X3 REPAIR FOR TMJ Nicola CANDELARIOHamida Plan of Treatment Date Care Activity Detail Author Start: 10-27-2034 Screening for malignant neoplasm of colon [facility] Start: 05-28-2031 Screening for malignant neoplasm of colon [facility] Start: 10-23-2028 Screening for malignant neoplasm of cervix [facility] Start: 11-22-2027 Screening for malignant neoplasm of cervix Pap Smear [facility] Start: 10-23-2026 Screening for malignant neoplasm of cervix Pap Smear [facility] Start: 05-28-2026 Screening for malignant neoplasm of colon Colonoscopy [facility] Start: 01-28-2026 Screening for malignant neoplasm of breast Mammogram [facility] Start: 10-13-2025 Adult BMI Screening Adult BMI Screening [facility] Start: 10-13-2025 Tobacco Screening Tobacco Screening [facility] Start: 03-24-2025 End: 03-24-2025 Patient encounter procedure 03/24/2025 10:00 AM EDT Office Visit [facility] [address] [address] [place] [address] Tiesha Hughes NP [address] [place], [place] [facility] Start: 02-03-2025 End: 02-03-2025 Patient encounter procedure 02/03/2025 8:20 AM EST Office Visit [facility] [address] [place] [address] Tiesha Hughes NP [address] [place], [place] Arrived [facility] Comment on above: Arrived Start: 02-01-2025 Aldolase measurement [facility] Start: 03-04-2025 Hemolytic complement CH50 level [facility] Start: 02-01-2025 [facility] Start: 11-27-2024 Screening for malignant neoplasm of breast Mammogram [facility] Start: 11-22-2024 End: 01-23-2026 MG Breast - bilateral Screening Bilateral screening mammogram Imaging Routine Breast cancer screening by mammogram Expected: 11/22/2024 (Approximate), Expires: 01/23/2026 [facility] Work Phone: Comment on above: Expected: 11/22/2024 (Approximate), Expi res: 01/23/2026 Start: 11-22-2024 End: 11-22-2024 Patient encounter procedure [facility] Comment on above: Arrived Start: 10-27-2024 End: 10-27-2024 Admission to same day surgery center [facility] Comment on above: ESOPHAGOGASTRODUODENOSCOPY DIAGNOSTIC [4 3235 (CPT )] Start: 10-27-2024 End: 10-27-2024 Colonoscopy flx dx w/collj spec when pfrmd [facility] Start: 10-27-2024 End: 10-27-2024 Esophagogastroduodenoscopy transoral diagnostic [facility] Start: 10-27-2024 Subsequent hospital visit by physician [facility] Start: 10-26-2024 End: 10-26-2024 Patient encounter procedure 10/26/2024 1:45 PM EST Office Visit [facility] General Surgery [address] [place] [phone] Becca Schwarz, WRAPPER REWINDER-PAD MACHINE FEEDER [address] [place] [address] [facility] General Surgery Start: 10-20-2024 End: 10-20-2024 ambulatory 10/20/2024 4:20 PM EST Support Visit [facility] Admit [address] [place] [address] [facility] - Pre Admit Start: 09-27-2024 End: 09-27-2024 Patient encounter procedure 09/27/2024 3:10 PM EDT Office Visit [facility] [address] [place] [address] Delgado Murillo DO [address] [place] [address] Arrived [facility] Comment on above: Arrived Start: 09-09-2024 End: 09-09-2024 ambulatory 09/09/2024 4:00 PM EDT Evaluation [facility] [address] [place] [phone] Carol Webb, PT [address] [place] [address] Arrived [facility] Comment on above: Arrived Start: 08-01-2024 COVID-19 Vaccine ( season) COVID-19 Vaccine ( season) [facility] Start: 08-01-2024 Influenza vaccination [facility] Start: 1995 DTaP,Tdap and Td Vaccines ( - Tdap) DTaP,Tdap and Td Vaccines ( - Tdap) [facility] Start: 1994 Adult BMI Follow Up Plan Adult BMI Follow Up Plan [facility] Start: 1988 Depression Screening Depression Screening [facility] Start: 1976 Screening for malignant neoplasm of colon [facility] Start: 1976 Tobacco Counseling Tobacco Counseling [facility] CHLAMYDIA TRACHOMATI S (GENITO/STI) CHLAMYDIA TRACHOMATIS (GENITO/STI) Lab Routine Vaginal spotting Ordered: 09/27/2024 [facility] Comment on above: Ordered: 09/27/2024 End: 10-13-2025 EGD / Colonoscopy EGD / Colonoscopy GI Routine Positive fecal occult blood test 1 Occurrences starting 10/13/2024 until 10/13/2025 [facility] Work Phone: Comment on above: 1 Occurrences starting 10/13/2024 until 10/13/2025 Neisseria gonorrhoea e DNA [Presence] in Unspecified specimen by NOLA with probe detection Neisseria gonorrhea DNA probe, direct Lab Routine Vaginal spotting Ordered: 09/27/2024 [facility] Comment on above: Ordered: 09/27/2024 SURESWAB(R) ADVANCED VAGINITIS PLUS, TMA SURESWAB(R) ADVANCED VAGINITIS PLUS, TMA Pathology and Cytology Routine Vaginal spotting Ordered: 09/27/2024 [facility] Work Phone: Comment on above: Ordered: 09/27/2024 THIN PREP TIS PAP AND HR HPV DNA THIN PREP TIS PAP AND HR HPV DNA Pathology and Cytology Routine Well woman exam with routine gynecological exam H/O: hysterectomy Ordered: 11/22/2024 [facility] Comment on above: Ordered: 11/22/2024 Immunizations Immunization Date Immunization Notes Care Provider Ramila narvaez 02-15-2018 SARS-CoV-2 mRNA (gotqgmxqwci-rmom-nqbb ose) vaccine Vinayak Baltazar [facility] 10-02-2004 influenza virus vaccine, unspecified formulation Becca Schwarz WRAPPER REWINDER-PAD MACHINE FEEDER Work Phone: [facility] NEGATED: Highlighted row has not occurred!11-01-2022 influenza virus vaccine, unspecified formulation Nicola BUCHANAN General Surgery [place] Payers Date Payer Category Payer Self-pay [id number] 2023 Private Health Insurance [employer] [id number] 2023 Unknown [id number]. 1.13.693.2. [id number] 2014 Commercial [facility] [employer] [id number]. [id number] 1976 Unknown [id number] 2.16.840.1.477512.3.579.2. 593 1976 Unknown [id number] 2.16.840.1.778845.3.579.2. 593 1976 Unknown [id number] 2.16.840.1.571436.3.579.2. 59 1976 Unknown [id number] 2.16.840.1.484584.3.579.2. 59 1976 Unknown [id number] 2.16.840.1.276719.3.579.2. 593 1976 Unknown [id number] 2.16.840.1.844358.3.579.2. 593 1976 Unknown [id number] 2.16.840.1.177028.3.579.2. 59 1976 Unknown [id number] 2.16.840.1.615698.3.579.2. 59 1976 Unknown [id number] 2.16.840.1.955433.3.579.2. 593 1976 Unknown [id number] 2.16.840.1.542575.3.579.2. 59 1976 Unknown [id number] 2.16.840.1.836523.3.579.2. 593 1976 Unknown [id number] 2.16.840.1.937303.3.579.2. 593 1976 Unknown [id number] 2.16.840.1.568756.3.579.2. 593 1976 Unknown [id number] 2.16.840.1.420554.3.579.2. 593 1976 Unknown [id number] 2.16.840.1.033764.3.579.2. 718 1976 Unknown [id number] 2.16.840.1.882519.3.579.2. 1286 1976 Unknown [id number] 2.16.840.1.517321.3.579.2. 1286 1976 Unknown [id number] 2.16.840.1.602169.3.579.2. 1286 1976 Unknown [id number] 2.16.840.1.367589.3.579.2. 196 1976 Unknown [id number] 2.16.840.1.732490.3.579.2. 196 1976 Unknown [id number] 2.16.840.1.085816.3.579.2. 196 1976 Unknown [id number] 2.16.840.1.417937.3.579.2. 196 1976 Unknown [id number] 2.16.840.1.321305.3.579.2. 1259 1976 Unknown [id number] 2.16.840.1.881097.3.579.2. 9 1976 Unknown [id number] 2.16.840.1.729049.3.579.2. 9 1976 Unknown [id number] 2.16.840.1.354726.3.579.2. 9 1976 Unknown [id number] 2.16.840.1.362391.3.579.2. 1259 1976 Unknown [id number] 2.16.840.1.480128.3.579.2. 727 1976 Unknown [id number] 2.16.840.1.277010.3.579.2. 727 1959 Self-pay [id number] 1959 Unknown [id number] 2.16.840.1.234266.19 Unknown [id number] 2.16.840.1.830464.3.579.2. 531 Unknown [id number] 2.16.840.1.201172.3.579.2. 531 Social History Date Type Detail Facility Unknown if ever smoked [employer] Other Start: 10-20-2023 End: 02-03-2025 Sex Assigned At [facility] Start: 11-01-2022 Tobacco smoking status Ex-smoker (finding) [facility] Tobacco smoking status Former sm okeless tobacco user, quit more than 30 days ago General [facility] [place] Start: 1975 Sex Assigned At Female [facility] Start: 06-25-2023 Tobacco smoking status MNIS Smokes tobacco daily [facility] History of tobacco use Cigarette Smoker [facility] Start: 04-05-2024 End: 02-03-2025 Alcoholic beverage intake Current drinker of alcohol (finding) [facility] Start: 10-20-2023 End: 02-03-2025 History of Social function [facility] How [...] o r e-cigarette use Smokeless Tobacco Use:. [facility] Tobacco smoking status No Smokin g Status Entered [facility] Start: 10-13-2024 End: 10-20-2024 Tobacco smoking status NHIS Occasional tobacco smoker [facility] History of tobacco use [facility] Start: 10-13-2024 End: 10-20-2024 Tobacco use and exposure Smokeless tobacco non-user [facility] Start: 10-13-2024 Alcoholic beverage intake Current non-drinker of alcohol (finding) [facility] Start: 07-06-2015 End: 02-01-2025 Sex Female (finding) [facility] Start: 12-06-2022 Gender identity Identifies as female gender (finding) [facility] Start: 12-06-2022 Sexual orientation Homosexual (finding) [facility] Start: 10-20-2024 Alcohol Comment rare [facility] Work Phone: Functional Status Date Assessment Result Facility 11-01-2024 Functional Status N/A [facility] 11-01-2022 Functional Status N/A General Delgado yaa [place] Clinical Notes 05-16-2022 to 11-22-2024 Franci Sutton MA - 11/22/2024 1:00 PM ESTPerioperative Nursing Note - Tmamy Casas RN - 10/20/2024 11:10 AM ESTPerioperative [...] 2006 laparoscopy-operative POLYPECTOMY 2005 uterine polyp removal ND LAP,CHOLECYSTECTOMY 2003 ND LIGATION,FALLOPIAN TUBE W/ 2006 c-sec w/tubal ND TMJ ARTHROSCOPY/SURGERY 1996 SHOULDER ARTHROSCOPY Left REVIEW [...] nursing note reviewed. Exam conducted with a pattern lease inspector present. Vitals: Estimated body mass index is [...] scheduled/obtained. Nursing will send progesterone/testosterone cream to [facility] for patient. Orders Placed This Encounter Procedures Bilateral screening mammogram Follow Up: Patient is to return in one year for annual unless needed otherwise. Documented by Franci Sutton MA on behalf of: Delgado Murillo DO documented in this encounter [facility] 10-20-2024 Nurse Note Preoperative Education Checklist- General Surgery date: 10/27/24 Surgery time: 1045a Arrival time: 845a 1. Bring a photo ID and your insurance card with you the day of surgery. You will check in at the main lobby of the [facility]- registration desk is straight ahead as soon as you walk in. Tell them you are here for surgery. 2. If you have a Living Will/Durable Power of Spray Gun Sizer for Health Care that is not on [...] after you have bathed. 5. NO nail kuwaiti/acrylic on at least one finger. If you are having a hand, wrist or foot surgery then all nail kuwaiti and artificial/acrylic nails must be removed from [...] WITH YOU ANY DEVICES YOU MAY NEED: RADHA hose, ice machine, sling/swath, brace or special [...] please call the Preadmission Testing office at [phone], Mon.-Fri. 7 a.m.-3 p.m. Leave a voicemail [...] Stop taking 0 days prior to procedure [facility] 10-20-2024 Miscellaneous Notes Preoperative Education Checklist- General Surgery date: 10/27/24 Surgery time: 1045a Arrival time: 845a 1. Bring a photo ID and your insurance card with you the day of surgery. You will check in at the main lobby of the [facility]- registration desk is straight ahead as soon as you walk in. Tell them you are here for surgery. 2. If you have a Living Will/Durable Power of Spray Gun Sizer for Health Care that is not on [...] after you have bathed. 5. NO nail kuwaiti/acrylic on at least one finger. If you are having a hand, wrist or foot surgery then all nail kuwaiti and artificial/acrylic nails must be removed from [...] WITH YOU ANY DEVICES YOU MAY NEED: RADHA hose, ice machine, sling/swath, brace or special [...] please call the Preadmission Testing office at [phone], Mon.-Fri. 7 a.m.-3 p.m. Leave a voicemail [...] procedure documented in this encounter [facility] 10-13-2024 History of Presen t illness [...] 05/28/2021 Performed by Nicola Gee DO at [facility] COLONOSCOPY N/A 05/04/2018 Performed by Nicola Gee DO at [facility] CYST REMOVAL from uterus and ovaries x 5 EGD N/A 05/04/2018 Performed by Nicola Gee DO at [facility] ESOPHAGOGASTRODUODENOSCOPY N/A 05/28/2021 Performed by Nicola Gee DO at [facility] KNEE ARTHROSCOPY Left KNEE ARTHROSCOPY Right [...] muscle spasms., Disp: , Rfl: peg 3350-sod sulf,vsjk-qja-arl 178.7-7.3-0.5 gram recon soln, Take 1 kit [...] patient/family/caregiver Referring and communicating with other health manager career Positive fecal occult blood test [R19.5] MAYRA VIEIRA [facility] General Surgery [place] This note was created with the assistance of a speech recognition program. While intending to generate a timely document that accurately reflects the content of the visit, no guarantee can be provided that every grammatical or spelling mistake has been or will be identified or corrected. Thank you for your understanding. MAYRA Vieira 10/13/24 1513 documented in this encounter [facility] 09-27-2024 History of Presen t illness [...] 2006 laparoscopy-operative POLYPECTOMY 2005 uterine polyp removal ND LAP,CHOLECYSTECTOMY 2003 ND LIGATION,FALLOPIAN TUBE W/ 2005 c-sec w/tubal ND TMJ ARTHROSCOPY/SURGERY 1996 SHOULDER ARTHROSCOPY Left REVIEW [...] nursing note reviewed. Exam conducted with a pattern lease inspector present. Vitals: Estimated body mass index is [...] Delgado Murillo DO documented in this encounter [facility] 09-09-2024 History of Presen t illness [...] No resulting surgeries. 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 Also notes poor balance with no diagnosed [...] sign below. Date: documented in this encounter [facility] 03-15-2024 Note Education Materials Cardiovascular Hypertension, [...] Keep all follow-up visits. Medicines ? Take xzrl-hld-dndfyba and prescription medicines only as told by [...] harder to (more content not included)... [facility] 10-01-2022 Evaluation note Encounter Date Diagnosis [...] was counseling done by myself, Ann ANGLIN. [employer] Other 09-28-2022 Evaluation note* Encounter Date Diagnosis Assessment Notes Treatment Notes Treatment Clinical Notes Aug, Abnormal weight gain (ICD-10 - R63.5) Aug, Prediabetes (ICD-10 - R73.03) Aug, Mixed hyperlipidemia (ICD-10 - E78.2) Aug, Hypertension (ICD-10 - I10) Aug, Obstructive sleep apnea (ICD-10 - G47.33) Aug, GERD (gastroesophageal reflux disease) (ICD-10 - K21.9) Aug, Metabolic syndrome X (ICD-10 - E88.81) [employer] Other 06-16-2022 NoteDISCHARGE SUMMARY DISCHARGE DATE: 05/18/2022 [...] pain free and no longer on narcotics. [facility] Signed and Approved by: DR DELGADO MURILLO . 05/20/2022 07:51:00[facility] [id number] NoteThe [place], [place] NAME: HORACIO PUGH DATE OF : MEDICAL REC#: [id number] PRODUCT ARCHITECT: [id number] [facility] AD[facility] DATE: 05/16/2022 11:05:00 ERP ANALYST DATE: 05/17/2022 21:20 DICTATING PHYSICIAN: DELGADO MURILLO DICTATION DATE: 05/16/2022 15:02 OP Note OPERATION DATE: 05/16/2022 PROCEDURE: Supracervical hysterectomy with left salpingo-oophorectomy with right salpingectomy and right ovarian cystotomy of approximately 3 cm cyst. SURGEON: Delgado Murillo D.O. PRODUCTION CLOTH CUTTER: SHUKRI Bailon URINE OUTPUT: Yellow and clear. [...] Approved by: DR DELGADO MURILLO . 05/23/2022 10:30:00[facility] No data available for this section General Surgery [place] Evaluation + Plan note Future Appointments Appointment Date:02/07/2025 02:15:00 PM Scheduled Provider:Delaney BURK, Vinayak Jimenez Location:[facility] Appointment Type:[facility] Follow Up Future Scheduled Tests Laboratory* Antimitochondrial Antibody, Quantitative 11/01/24 * Smooth Muscle Antibody Screen 11/01/24 * IgA, Quant. 11/01/24 * IgG, Quant. 11/01/24 * t-Transglutaminase IgA 11/01/24 * Comprehensive Metabolic Panel 11/01/24 * Comprehensive Metabolic Panel 12/02/24 * Comprehensive Metabolic Panel 01/02/25 [facility] Evaluation noteNo InformationNort CX Other Evaluation noteNo assessment information available [facility] Work Phone: Evaluation note* Diagnosis Neck pain- Primary Cervicalgia Chronic bilateral low back pain with bilateral sciatica documented in this encounter [facility] HealthcareEvaluation note* Diagnosis Encounter to discuss test results Other specified counseling Vaginal spotting Other specified noninflammatory disorder of vagina Hot flashes due to surgical menopause Surgical menopause documented in this encounter [facility] HealthcareEvaluation note* Diagnosis Well woman exam with routine gynecological exam Routine gynecological examination H/O: hysterectomy Acquired absence of both cervix and uterus Breast cancer screening by mammogram Yeast infection documented in this encounter [facility] HealthcareEvaluation note* Diagnosis Positive fecal occult blood test- Primary Rectal bleeding Hemorrhage of rectum and anus Gastroesophageal reflux disease, unspecified whether esophagitis present [facility] Diagnosis LIZZETH (obstructive sleep apnea)- Primary Obstructive sleep apnea (adult) (pediatric) Hypoxia Hypoxemia Hypersomnia Hypersomnia, unspecified Primary insomnia Persistent disorder of initiating or maintaining sleep Snoring Other dyspnea and respiratory abnormality documented in this encounter [facility] HealthcareHistory general Narrative - Reported* Type Description [...] History TMJ surgery Hospitalization History see above [employer] Other History general Narrative - Reported* Type [...] ER-abd . [facility] 09/18[facility]22 [employer] Other Hospital Discharge instructions No data available for this section General Surgery [place] InstructionsNot on filedocumented in this encounter [facility]Not on filedocumented [facility] No data available for [...] Specialty Diagnoses / Procedures Referred By Teja vidal Referred To Contact Physical Therapy Diagnoses Other spondylosis, lumbar region Procedures ND PHYS THERAPY EVALUATION Edwige Magaña MD [facility] [place] [address] Carol Webb, PT [address] [place] [address] Referral ID Status Reason Start Date Expiration Date V isits Requested Visits Authorized [id number] Authorized 09/02/2024 03/01/2025 40 40 Reason Comments Results Reason Comments Gynecologic Exam Reason Comments POSITIVE OCCULT TEST POSITIVE OCCULT STO OL, REF BY DR. MCCARTY Reason Comments Sleep Apnea Patient Care team informatio n (unrecognized section and content) Team Status: Active Member Role Status Dates NON STAFF Primary Care Provider Active Team Status: Inactive Member Role Status Dates NON STAFF Primary Care Provider Active Dedrick Fuller DO [facility] Attending Provider Active Team Status: Inactive Member Role Status Dates NON STAFF Primary Care Provider Active Start: August 30, 2024 End: August 30, 2024 DO PALAK Young Attending Provider Active Start: August 30, 2024 End: August 30, 2024 Binder Technician Relationship Specialty Start Date End Date Sami Mccarty MD [address] [facility] [place] [address] PCP - General Family Medicine 7/27/23 Binder Technician Relationship Specialty Start Date End Date Sami Mccarty MD [address] [place] [address] PCP - General Family Medicine 06/26/23 Binder Technician Relationship Specialty Start Date End Date Sami Mccarty MD [address] [place] [address] PCP - General Family Medicine 06/26/23 Binder Technician Relationship Specialty Start Date End Date Sami Mccarty MD [address] [place] [address] PCP - General Family Medicine 06/26/23 Binder Technician Relationship Specialty Start Date End Date Sami Mccarty MD [address] [place] [address] PCP - General Family Medicine 06/26/23 Binder Technician Relationship Specialty Start Date End Date Sami Mccarty MD PCP - General 05/04/18 Binder Technician Relationship Specialty Start Date End Date Sami Mccarty MD PCP - General 05/04/18 Binder Technician Relationship Specialty Start Date End Date Sami Mccarty MD [address] [place] [address] PCP - General Family Medicine 06/26/23 Tiesha Hughes NP [address] Nurse Practitioner Neurology 02/03/25 Shasha White DO [address] [place] [address] Referring Physician Neurology 02/03/25 Binder Technician Relationship Specialty Start Date End Date Sami Mccarty MD [address] [facility] [place] [address] PCP - General Family Medicine 06/26/23 Tiesha Hughes NP [address] [place] Nurse Practitioner Neurology 02/03/25 Shasha White DO [address] [place] [address] Referring Physician Neurology 02/03/25 Team Status: Inactive Member Role Status Dates NON STAFF Primary Care Provider Active Start: February 01, 2025 End: February 01, 2025 Carol Vidal MD Attending Provider Active St art: February 01, 2025 End: February 01, 2025 INFORMATION SOURCE (unrecogn ized section and content) DATE CREATED AUTHOR 12/03/2022 [facility] DATE CREATED AUTHOR AUTHOR'S ORGANIZ ATION 03/21/2024 [facility] DATE CREATED AUTHOR AUTHOR'S ORGANIZ ATION 10/15/2024 [facility] DATE CREATED AUTHOR AUTHOR'S ORGANIZ ATION 11/12/2024 [facility] DATE CREATED AUTHOR AUTHOR'S ORGANIZ ATION 11/24/2024 [facility] DATE CREATED AUTHOR AUTHOR'S ORGANIZ ATION 02/05/2025 [facility] EPIC DATE CREATED AUTHOR AUTHOR'S ORGANIZ ATION 02/08/2025 [facility] DATE CREATED AUTHOR AUTHOR'S ORGANIZ ATION 02/09/2025 [facility] Goals (unrecognized section and content) [...] BE BASED ON THE PRIMARY CLINICAL RECORDS. [facility]. provides no warranty or guarantee of the accuracy or completeness of information in this document.
[2025-08-13 12:12] LABS: Hematocrit 39.9 % (36.0-48.0); Hemoglobin 13.7 g/dL (12.0-16.0); Immature Granulocytes Abs Auto 0.02 10^3/uL (0.00-0.03); Immature Granulocytes Pct Auto 0.3 % (0.0-0.5); Lymphocytes Absolute Auto 2.8 10^3/uL (1.2-3.8); Mean Corpuscular HGB Conc 34.3 g/dL (29.9-35.2); Mean Corpuscular Hemoglobin 31.4 pg (26.7-34.0); Mean Corpuscular Volume 91.3 fL (81.0-99.0); Platelet Count 231 10^3/uL (150-450); Red Blood Count 4.37 10^6/uL (4.20-5.40); White Blood Count 6.7 10^3/uL (4.0-11.0)
[2025-08-13 12:24] LABS: Glucose Urine UA NEGATIVE (NEGATIVE)
[2025-08-13 12:42] LABS: Alanine Aminotransferase 33 U/L (14-59); Albumin Globulin Ratio 1.2; Albumin Level 4.2 g/dL (3.4-5.0); Alkaline Phosphatase 64 U/L (46-116); Anion Gap 12.3; Aspartate Amino Transferase 15 U/L (15-37); Blood Urea Nitrogen 12.0 mg/dL (7.0-18.0); Calcium 8.9 mg/dL (8.5-10.1); Carbon Dioxide 28.6 mmol/L (21.0-32.0); Chloride 106 mmol/L (98-107); Cholesterol 215 mg/dL (<=200); Estimated GFR (African America >60 (>=60 mL/min/1.73m^2); Estimated GFR (Non-African Ame >60 (>=60 mL/min/1.73m^2); Free T3 2.20 pg/mL (2.18-3.98); Globulin 3.4 g/dL; Glucose 101 mg/dL (74-106); HDL Cholesterol 40 mg/dL (40-60); Magnesium 1.9 mg/dL (1.8-2.4); Potassium 3.9 mmol/L (3.5-5.1); Sodium 143 mmol/L (136-145); Thyroid Stimulating Hormone 0.906 uIU/mL (0.358-3.740); Total Protein 7.6 g/dL (6.4-8.2); Triglycerides 204 mg/dL (<=150); Uric Acid 5.0 mg/dL (2.6-6.0); VLDL CHOLESTEROL 40.8 mg/dL
[2025-08-13 12:52] LABS: Iron 71.0 ug/dL (50.0-170.0)
[2025-08-13 12:53] LABS: Cast Seen? NONE SEEN #/LPF (NONE SEEN); Crystals Seen? None Seen #/HPF (None Seen); Urine Culture Indicated ALREADY ORDERED
[2025-08-13 13:08] LABS: Folate 14.40 ng/mL (8.60-58.90)
[2025-08-14 07:10] LABS: Vitamin B12 287 pg/mL (232-1245)
[2025-08-14 09:08] LABS: Immunoglobulin A, Qn, Serum 225 mg/dL (87-352)
[2025-08-15 14:13] LABS: Antinuclear Antibodies, IFA Negative (.)
== END 2025-08-13 11:37 | disposition home or self-care (01) ==
LOC: LAB 11:39
PROVIDERS: PCP Family Medicine; Visit Provider Family Medicine
DX: Z00.00 Encounter for general adult medical examination without abnormal findings (principal); E78.00 Pure hypercholesterolemia, unspecified; M19.041 Primary osteoarthritis, right hand; E34.9 Endocrine disorder, unspecified
CPT/HCPCS: 36415; 80053; 80061; 81001; 82306; 82607; 82746; 82784; 83036; 83525; 83540; 83735; 84100; 84403; 84436; 84443; 84481; 84550; 85025; 86038; 86060; 86140; 86376; 86431; 86800; 87086

== ENCOUNTER 2025-08-23 14:37 | Outpatient (OUT) | payer OTHER, SELFPAY ==
--- OUTSIDE RECORDS SUMMARY | 2024-08-20 05:20 | XMS_ITS ---
Author Organization [facility] Address [address] [place] [address] Care Team Providers Care Cable Strander Name Role Phone Varun Marinelli Primary Care Provider Edwige Strauss [phone] REASON FOR VISIT lumbar pain NEEDS TO RESCHEDULE Encounters Encounter Location Date Provider Diagnosis [facility] [address] [place] [address] [place] [address] 08/20/2024 Edwige Magaña Plan Of Treatment No Information Progress Notes * KEISHA KEATINGY NDOB: [birth year] (50 yo F)Acc No.[id number]:08/20/2024 Patient: HORACIO GOLD Provider: Kaelyn Wrad MD, PhD :1975 A ge:49 Y S ex:Female Date:08/20/2024 Address:[address] [place], [place] [address], [id number] Pcp:Varun Marinelli Subjective: * Chief Complaints: * 1 . lumbar pain NEEDS TO RESCHEDULE. * Medical History: Objective: * Vitals: Assessment: Plan: * Treatment: Forms: * Images: * Electronic signature of Anastasia Magaña MD, PHD on 08/23/2025 at 02:41 PM EDT Sign off status: Pending * Provider: Kaelyn Ward MD, PhD Date: 0 08/20/2024 Generated for Darin tang/Tay/Maria Teresa on: 0 08/23/2025 02:41 PM EDT
--- OUTSIDE RECORDS SUMMARY | 2025-02-04 05:00 | XMS_ITS ---
Author Organization [facility] Address [address] [place] [address] Care Team Providers Care Supervisor Plastering Name Role Phone Varun Marinelli Primary Care Provider Edwige Srtauss [phone] REASON FOR VISIT THORACIC SPINE Medications Medication SIG (Take, Route, Frequency, Duration) Notes Start Date End Date Status Ozempic Active doxepin Active indomethacin Active Zanaflex Active Adderall Active lisinopril Active Lopressor Active Xanax Active Aspirin Active Prilosec Active Encounters Encounter Location Date Provider Diagnosis [facility] Office [address] [place] [address] [place] [address] 02/04/2025 Edwige Magaña Plan Of Treatment No Information Progress Notes * KEATING, HORACIO NDOB: [birth year] (50 yo F)Acc No.[id number]:02/04/2025 Patient: KEISHA GOLDLeonardo Reilly Provider: Kaelyn Ward MD, PhD :1975 A ge:49 Y S ex:Female Date:02/04/2025 Address:[address] [place], [place] [address], [id number] Pcp:Varun Marinelli Subjective: * Chief Complaints: * 1 . THORACIC SPINE. * Medical History: * Medications: T aking Ozempic , Taking lisinopril , Taking Lopressor , Taking Aspirin , Taking Prilosec , Taking Xanax , Taking Adderall , Taking Zanaflex , Taking doxepin , Taking indomethacin Objective: * Vitals: Assessment: Plan: * Treatment: Forms: * Images: * Electronic signature of Anastasia on St Juliana MD, PHD on 08/23/2025 at 02:40 PM EDT Sign off status: Pending * Provider: Kaelyn Ward MD, PhD Date: 0 02/04/2025 Generated for Darin tang/Tay/Maria Teresa on: 0 08/23/2025 02:40 PM EDT
--- OUTSIDE RECORDS SUMMARY | 2025-08-11 12:30 | XMS_ITS ---
Author Organization The [facility] in [place] Address [address] [place] [address] Care Team Providers Care Farm Crew Leader Name Role Phone Finesse Marinelli Primary Care Provider Allergies Allergen (clinical drug ingredient) Drug/Non Drug Allergy documented on EMR Reaction Allergy Type Onset Date Status nitrofurantoin, macrocrystals / nitrofurantoin, monohydrate Macrobid neck swelling Drug Allergy Active albuterol Albuterol seizure Drug Allergy Active Results Component Value Reference Range Notes MAGNESIUM Reviewed date:08/14/2025 12:36:43 PM Interpretation: Performing Lab: Notes/Report: [facility] , Magnesium 1.9 1.8-2.4 mg/dL Performing Lab: see note ML - [facility] LB PHOSPHORUS Reviewed date:08/14/2025 12:36:43 PM Interpretation: Performing Lab: Notes/Report: [facility] , Phosphorus 4.2 2.6-4.7 mg/dL Performing Lab: see note ML - [facility] LB THYROID ANTIBODIES Reviewed date:08/15/2025 07:51:36 PM Interpretation: Performing Lab: Notes/Report: [facility] , Thyroid Peroxidase (TPO) Ab 13 0-34 IU/mL Thyroglobulin Antibody <1.0 0.0-0.9 IU/mL Thyroglobulin Antibody measured by [facility] [place] Methodology It should be noted that the presence of thyroglobulin antibodies may not be pathogenic nor diagnostic, especially at very low levels. The assay mill house supervisor has found that four percent of individuals without evidence of thyroid disease or autoimmunity will have positive TgAb levels up to 4 IU/mL. Performed at: [address] [id number] Resourcing Advisor: Bowen Mcleod PhD, Phone: [phone] Performing Lab: see note - [facility] LB REASON FOR VISIT wellness Medications Medication SIG (Take, Route, Frequency, Duration) Notes Start Date End Date Status Gabapentin 100 MG 1 am, 1 afternoon, 3 at hs Orally Once a day; Duration: 30 days 06/01/2025 Active Testosterone 10 MG/ACT (2%) 1 pump to skin in the morning to the thighs Transdermal QOD; Duration: 30 days 10/19/2024 Active Semaglutide 0.6 mg/0.5 mL Semaglutide 0.6 mg/0.5 mL 0.5 mL Subcutaneous Once Weekly; Duration: 30 days 08/09/2024 Active Terbinafine HCl 250 MG 1 tablet Orally O nce a day; Duration: 30 days 03/23/2025 Active Potassium Chloride ER 10 MEQ 1 tablet with food Orally Twice a day; Duration: 90 days PRN 04/08/2024 Active Omeprazole 40 MG 1 capsule Orally twi ce a day; Duration: 90 days Active Ondansetron 4 MG 1 tablet on the tong ue and allow to dissolve Orally Once a day; Duration: 30 days 09/03/2024 Active Nabumetone 750 MG as directed Orally BID Active Neurontin 100 MG 2 capsule at bedtime Orally Once a day; Duration: 30 days 01/14/2025 Active Mupirocin 2 % 1 application Invoice Clerk ally Twice a day; Duration: 5 days 03/23/2025 Active Metoprolol Tartrate 75 mg TAKE 1 TABLET TWICE A DAY WITH FOOD Active Lisinopril 10 MG 1 tablet Orally Once a day; Duration: 90 days Active metFORMIN HCl 500 MG 1 tablet with a viridiana l Orally BID; Duration: 90 days 10/13/2024 Active Gabapentin 100 MG 1 capsule at bedtime Orally Once a day; Duration: 30 days 02/09/2025 Active Lasix 20 MG 1 tablet Orally Once a day; Duration: 90 days PRN 04/08/2024 Active Cipro 500 MG 1 tablet Orally BID; Duration: 10 days 03/01/2025 Active Estradiol 0.5 MG 1 tablet Orally Once a day; Duration: 30 days 10/07/2024 Active ALPRAZolam 0.25 MG 1 tablet Orally once daily; Duration: 7 days As needed F41.9 08/05/2025 Active Baclofen 5 MG 1-2 tablet as needed Orally at HS PRN 09/02/2024 Active tiZANidine HCl 2 MG 1 tablet at bedtime as needed Orally Once a day; Duration: 30 days 07/04/2025 Active Adderall 30 MG 1 tablet Orally q am ; Duration: 30 days 08/05/2025 Active Adderall XR 30 MG 1 capsule in the mor meagan Orally Once a day; Duration: 30 days 02/09/2025 Active Adderall 10 MG [...] W/U Status Risk Notes Problem Well adult ([id number]) Well adult (Z00.00) Active confirmed Vital Signs Weight 177.0 lbs 08/11/2025 Height 67 in 08/11/2025 Blood pressure systolic 122 mm Hg 08/11/20 25 Blood pressure diastolic 80 mm Hg 025 BMI 27.72 kg/m2 08/11/2025 Encounters Encounter Location Date Provider Diagnosis [facility] [address] [place] [address] 08/11/2025 Finesse Hoy Hypercholesteremia E 78.00 ; Arthritis of right [...] afternoon, 3 at hs Orally Once a day; Duration: 30 days 06/01/2025 tiZANidine HCl 2 MG 1 tablet at bedtime as needed Orally Once a day; Duration: 30 days 07/04/2025 Pending Test Test Name Order Date HEMOGLOBIN A1C (GLYCO) 08/11/2025 IRON, TOTAL 08/11/2025 LIPID PANEL (CHOL/TRIG/HDL/LDL) 08/11/20 25 IGG, IGA and IGM, TOTAL (IMMUNOGLOBULINS ) 08/11/2025 VITAMIN D, 25 LEVEL (TOTAL) 08/11/2025 Urinalysis Microscopic 08/11/2025 RHEUMATOID PANEL 08/11/2025 Insulin Level 08/11/2025 STOOL OCCULT BLOOD 08/11/2025 CULTURE URINE 08/11/2025 TESTOSTERONE, TOTAL 08/11/2025 VIT B12 AND FOLATE 08/11/2025 THYROID PANEL (T4/TSH/FREE T3) US renal bladder 08/11/2025 CMP (COMP MET LOVE) w/eGFR CKD-EPI 2024 CBC WITH DIFF 08/11/2025 Progress Notes * Paige MARROQUIN NDOB: [birth year] (50 yo F)Acc No.[id number]:08/11/2025 Progress Note Patient: Paige GOLD Provider: Paris Marinelli ([facility])MD :1975 A ge:50 Y S ex:Female Date:08/11/2025 Address:[address] [place] [id number] Check In:04:03 PM ESTCheck O ut:04:59 PM EST Subjective: * Chief Complaints: * W ellness * HPI: G eneral: well adult. * [...] enies. S wollen joints d enies. * Active Problem List M13.841 Other specified arth ritis, right hand Modified On:11/12/2023W/U Status:confirmed R53.83 Fatigue Modified On:06/12/2023W/U Status:confirmed I10 Hypertension Modified On:02/02/2024W/U Status:confirmed K21.9 GERD (gastroesophage al reflux disease) Modified On:06/12/2023U Status:confirmed F41.9 Anxiety Modified On:06/12/2023U Status:confirmed M72.2 Plantar fasciitis Modified On:06/12/2023U Status:confirmed K57.30 Diverticula of colon Modified On:06/12/2023U Status:confirmed H53.9 Vision changes Modified On:06/12/2023U Status:confirmed M25.50 Arthralgia Modified On:06/12/2023U Status:confirmed N93.8 DUB (dysfunctional u terine bleeding) Modified On:06/12/2023U Status:confirmed R06.83 Snorings Modified On:06/12/2023 Status:confirmed K58.9 Irritable bowel synd lila (IBS) Modified On:06/12/2023 Status:confirmed R73.03 Pre-diabetes Modified On:06/12/2023U Status:confirmed N83.201 Ovarian cyst, right Modified On:06/12/2023U Status:confirmed G47.33 Obstructive sleep ap natalia (adult) (pediatric) Modified On:03/14/2023U Status:confirmed F51.01 Primary insomnia Modified On:03/14/2023 Status:confirmed M12.9 Hand arthritis Modified On:06/13/2023U Status:confirmed M19.041 Arthritis of right h and Modified On:06/13/2023U Status:confirmed G47.419 Narcolepsy Modified On:02/02/2024U Status:confirmed M54.2 Neck pain Modified On:02/02/2024U Status:confirmed M25.559 Hip pain, acute Modified On:02/02/2024U Status:confirmed M51.36 Other intervertebral disc degeneration, lumbar region Modified On:05/19/2024U Status:confirmed U07.1 COVID-19 Modified On:06/28/2024U Status:confirmed E78.00 Hypercholesteremia Modified On:09/02/2024U Status:confirmed E34.9 Low testosterone Modified On:10/18/2024U Status:confirmed M48.04 Thoracic spinal sten osis Modified On:01/14/2025W/U Status:confirmed M79.641 Right hand pain Modified On:03/04/2025W/U Status:confirmed Q61.00 Kidney cysts Modified On:03/16/2025W/U Status:confirmed Z00.00 Well adult Modified On:08/11/2025W/U Status:confirmed * Medical History: * Surgical History: T ubal Ligation Endometrial Polyp removal Cholecystectomy hysterectomy colonoscopy ilateral L3-4 transforaminal epidural steroid inj 10/04/24EGD- Dr Guillermo Baumannedicjere 10/02/24Right Sacroiliac joint injection- Dr Jara 11/15/24Right index finger steroid injection 01/2025 * Hospitalization/Major Diagno stic Procedure: D lyric Past Hospitalization * Family History: F ather: 69 yrs, type II diabetes, diagnosed with Diabetes mellitus without mention of complication, type II or unspecified type, not stated as uncontrolled. M other: 68 yrs, hyperthyroidism, Lung cancer, diagnosed with Other malignant neoplasm of unspecified site. S ister(s): alive. D alexandr(s): alive. 1 sister(s) . 2 daughter(s) - healthy. . * Social History: T obacco Use: T obacco Use/Smoking P atient is a f ormer smoker W hen did you stop smoking? 0 12/31/2009 H ow long has it been since you last smoked??> 10 years * Medications: T akingAdderall(Amphetamine-Dextroamphetamine) 10 MG Tablet 1 tablet Orally Q afternoon Adderall(Amphetamine-Dextroamphetamine) 30 MG Tablet 1 tablet Orally q am Adderall XR(Amphetamine-Dextroamphet ER) 30 MG Capsule Extended Release 24 Hour 1 capsule in the morning Orally Once a day ALPRAZolam 0.25 MG Tablet 1 tablet Orally once daily As needed F41.9Baclofen 5 MG Tablet 1-2 tablet as needed Orally at HS PRN Cipro(Ciprofloxacin HCl) 500 MG Tablet 1 tablet Orally BID Estradiol 0.5 MG Tablet 1 tablet Orally Once a day Gabapentin 100 MG Capsule 1 capsule at bedtime Orally Once a day Gabapentin 100 MG Capsule 1 capsule at bedtime Orally Once a day Lasix(Furosemide) 20 MG Tablet 1 tablet Orally Once a day , Notes to Pharmacist: PRNLisinopril 10 MG Tablet 1 tablet Orally Once a day metFORMIN HCl 500 MG Tablet 1 tablet with a meal Orally BID Metoprolol Tartrate 75 mg Tablet TAKE 1 TABLET TWICE A DAY WITH FOOD Mupirocin 2 % Ointment 1 application Externally Twice a day Nabumetone 750 MG Tablet as directed Orally BID Neurontin(Gabapentin) 100 MG Capsule 2 capsule at bedtime Orally Once a day Omeprazole 40 MG Capsule Delayed Release 1 capsule Orally twice a day Ondansetron 4 MG Tablet Disintegrating 1 tablet on the tongue and allow to dissolve Orally Once a day Potassium Chloride ER 10 MEQ Tablet Extended Release 1 tablet with food Orally Twice a day , Notes to Pharmacist: PRNSemaglutide 0.6 mg/0.5 mL Semaglutide 0.6 mg/0.5 mL Solution Auto-injector 0.5 mL Subcutaneous Once Weekly Terbinafine HCl 250 MG Tablet 1 tablet Orally Once a day Testosterone 10 MG/ACT (2%) Gel 1 pump to skin in the morning to the thighs Transdermal QOD tiZANidine HCl 2 MG Tablet 1 tablet at bedtime as needed Orally Once a day Medication List reviewed and reconciled with the patientTaking Adderall(Amphetamine-Dextroamphetamine) 10 MG Tablet 1 tablet Orally Q afternoon Taking Adderall(Amphetamine-Dextroamphetamine) 30 MG Tablet 1 tablet Orally q am Taking Adderall XR(Amphetamine-Dextroamphet ER) 30 MG Capsule Extended Release 24 Hour 1 capsule in the morning Orally Once a day Taking ALPRAZolam 0.25 MG Tablet 1 tablet Orally once daily As needed F41.9Taking Baclofen 5 MG Tablet 1-2 tablet as needed Orally at HS PRN Taking Cipro(Ciprofloxacin HCl) 500 MG Tablet 1 tablet Orally BID Taking Estradiol 0.5 MG Tablet 1 tablet Orally Once a day Taking Gabapentin 100 MG Capsule 1 capsule at bedtime Orally Once a day Taking Gabapentin 100 MG Capsule 1 capsule at bedtime Orally Once a day Taking Lasix(Furosemide) 20 MG Tablet 1 tablet Orally Once a day , Notes to Pharmacist: PRNTaking Lisinopril 10 MG Tablet 1 tablet Orally Once a day Taking metFORMIN HCl 500 MG Tablet 1 tablet with a meal Orally BID Taking Metoprolol Tartrate 75 mg Tablet TAKE 1 TABLET TWICE A DAY WITH FOOD Taking Mupirocin 2 % Ointment 1 application Externally Twice a day Taking Nabumetone 750 MG Tablet as directed Orally BID Taking Neurontin(Gabapentin) 100 MG Capsule 2 capsule at bedtime Orally Once a day Taking Omeprazole 40 MG Capsule Delayed Release 1 capsule Orally twice a day Taking Ondansetron 4 MG Tablet Disintegrating 1 tablet on the tongue and allow to dissolve Orally Once a day Taking Potassium Chloride ER 10 MEQ Tablet Extended Release 1 tablet with food Orally Twice a day , Notes to Pharmacist: PRNTaking Semaglutide 0.6 mg/0.5 mL Semaglutide 0.6 mg/0.5 mL Solution Auto-injector 0.5 mL Subcutaneous Once Weekly Taking Terbinafine HCl 250 MG Tablet 1 tablet Orally Once a day Taking Testosterone 10 MG/ACT (2%) Gel 1 pump to skin in the morning to the thighs Transdermal QOD Taking tiZANidine HCl 2 MG Tablet 1 tablet at bedtime as needed Orally Once a day Medication List reviewed and reconciled with the patient * Allergies: A lbuterol: seizure - AllergyMacrobid: neck swelling - Allergyno[Allergies Verified] Objective: * Vitals: W t:177.0lbs, Ht: 67 [...] L AB: CBC WITH DIFF 4. W [facility] adult Refill Gabapentin Capsule, 100 MG, 1 [...] w/eGFR CKD-EPI L AB: CBC WITH DIFF L AB: THYROID ANTIBODIES (Collection Date & Time - 08/13/2025 12:05 PM) I maging: US renal bladder * Labs: * L ab: MAGNESIUM (Collection Date & Time - 08/13/2025 12:05 PM) L ab: PHOSPHORUS (Collection Date & Time - 08/13/2025 12:05 PM) L ab: THYROID ANTIBODIES (Collection Date & Time - 08/13/2025 12:05 PM) * Procedure Codes: * Preventive Medicine: Screenings/Counseling: B [place] ACTION PLAN Above Normal BMI Follow-up D ietary management education, guidance, and counseling * * Sign off status: Completed Visit Status: C HK (Check Out) true * Provider: Paris Marinelli ([facility])MD Date: 0 08/11/2025 Generated for Printi ng/Faxing/eTransmitting on: 0 08/23/2025 02:40 PM EDT History and Physical Notes * HPI [...]
--- OUTSIDE RECORDS SUMMARY | 2025-08-11 12:49 | XMS_ITS ---
Author Organization The [facility] in [place] Address [address] [place] [address] Care Team Providers Care Nicu Rn Name Role Phone Yves Finesse Primary Care Provider Reason For Referral Diagnosis 1 Other specified arth ritis, right hand (M13.841) Referral Organization [facility] Referring Provider First Name Finesse Referring Provider Last Name Yves Referring Provider [facility] icine Referred Provider Rosalind Lara Referred Provider Specialty Orthopedic S urgery Referral Priority Routine REASON FOR VISIT referral to Dr. Lara Encounters Encounter Location Date Provider Diagnosis [facility] [address] [place] [address] 08/11/2025 Finesse Marinelli Other specified arthritis, right hand M13.841 Assessments Encounter Date Diagnosis (ICD Code) Assessment Notes Treatment Notes Treatment Clinical Notes Section Notes 08/11/2025 Other specified arthritis, right hand (ICD-10 - M13.841) Plan Of Treatment Referrals Referral Date Details 08/11/2025 08/11/2025, Rosalind Lara Progress Notes * Paige KEATING NDOB: [birth year] (50 yo F)Acc No.[id number]:08/11/2025 Patient: Paige GOLD :1975 A ge:50 Y S ex:Female Address:[address] [place] [address] [place], [address] Subjective: * Chief Complaints: * r eferral to Dr. Lara * Medical History: * Surgical History: * Hospitalization/Major Diagno stic Procedure: * Medications: Objective: * Vitals: * Physical Examination: Assessment: * Assessment: 1. O ther specified arthritis, right hand - M13.841 (Primary) Plan: * Treatment: * Procedure Codes: * true * Date: Generated for Printi ng/Aftabg/eTransmitting on: 0 08/23/2025 02:40 PM EDT Consultation Request Notes Referral Date Referring Provider Referred Provider Not es 08/11/2025 Finesse Marinelli Colleen
--- OUTSIDE RECORDS SUMMARY | 2025-08-22 09:23 | XMS_ITS ---
Author Organization [facility] [place] Address [address] [place] [address] Care Team Providers Care Radio Electrician Name Role Phone Finesse Marinelli Primary Care Provider [phone] REASON FOR VISIT not returning calls to ortho- not set up Problems Problem Type SNOMED Code ICD Code Onset Dates Problem Status W/U Status Risk Notes Problem Vaginal bleeding (575064048) Vaginal bleeding (N93.9) Active confirmed Encounters Encounter Location Date Provider Diagnosis [facility] [address] [place] [address] 08/22/2025 Finesse Marinelli Vaginal bleeding N93 .9 Assessments Encounter Date Diagnosis (ICD Code) Assessment Notes Treatment Notes Treatment Clinical Notes Section Notes 08/22/2025 Vaginal bleeding (ICD-10 - N93.9) Plan Of Treatment Pending Test Test Name Order Date US Transvaginal Pelvic 08/22/2025 Progress Notes * KEATING, Paige NDOB: [birth year] (50 yo F)Acc No.[id number]:08/22/2025 Patient: Paige GOLD Tommie :1975 A ge:50 Y S ex:Female Address:[address] [place] [address] [place], [address] Subjective: * Chief Complaints: * n ot returning calls to ortho- not set up * Medical History: * Surgical History: * Hospitalization/Major Diagno stic Procedure: * Medications: Objective: * Vitals: * Physical Examination: Assessment: * Assessment: 1. V aginal bleeding - N93.9 (Primary) Plan: * Treatment: * Procedure Codes: * true * Date: Generated for Darin tang/Tay/Maria Teresa on: 0 08/23/2025 02:41 PM EDT
--- OUTSIDE RECORDS SUMMARY | 2025-08-23 14:40 | XMS_ITS | Encounter Summary ---
Author Organization [facility] Address [address] [facility] [place] [address] Care Team Providers Care Cnc Mill Set Up Operator Name Role Phone Varun Marinelli MD Primary Care Provider [phone] Tiesha Hughes FERMENTER OPERATOR Unavailable [phone] Shasha White DO Unavailable [phone] Encounter Details Date Type Department Care Team (Late st Contact Info) Description 09/13/2024 Abstract [facility]IDA HERNANDES [address] [place] [address] Delgado Murillo DO [address] [place] [address] Social History Tobacco Use Types Packs/Day Years [...] as of this encounter Plan of Treatment Upcoming Encounters Date Type Department Care Team (Late st Contact Info) Description 09/26/2025 3:10 PM EDT Office Visit [facility] [place] [facility] [address] [place] [phone] Delgado Murillo DO [address] [place], [place] [id number] documented as of this encounter Visit Diagnoses Not on filedocumented in this encounter Care Teams Cnc Mill Set Up Operator Relationship Specialty Start Date End Date aVrun Marinelli MD PCP - General Family Medicine 06/26/23 Tiesha Hughes NP Nurse Practitioner Neurology 02/03/25 Shasha White DO [address] [place], [place] [id number] Referring Physician Neurology 02/03/25 documented as of this encounter
--- OUTSIDE RECORDS SUMMARY | 2025-08-23 14:40 | XMS_ITS | Encounter Summary ---
Author Organization [facility] Address [address] [facility] [place] [address] Care Team Providers Care Pulmonary Care Nurse Name Role Phone Varun Marinelli MD Primary Care Provider [phone] Tiesha Hughes LIBRARY INFORMATION TECHNICIAN Unavailable [phone] Shasha White DO Unavailable [phone] Encounter Details Date Type Department Care Team (Late st Contact Info) Description 09/13/2024 Abstract NIDA HERNANDES [address] [address] Delgado Murillo DO [address] [facility] [place] [address] Social History Tobacco Use Types Packs/Day Years [...] EDT Office Visit [facility] [place] [facility] [address] [phone] Delgado Murillo DO [address] [facility] [address] [place], [place] [address] documented as of this encounter Visit Diagnoses Not on filedocumented in this encounter Care Teams Pulmonary Care Nurse Relationship Specialty Start Date End Date Varun Marinelli MD PCP - General Family Medicine 06/26/23 Tiesha Hughes NP Nurse Practitioner Neurology 02/03/25 Shasha White DO [address] [place], [place] [id number] Referring Physician Neurology 02/03/25 documented as of this encounter
--- OUTSIDE RECORDS SUMMARY | 2025-08-23 14:41 | XMS_ITS | Clinical Summary ---
Author Organization [facility] Address [id number] [address] [place] [address] Care Team Providers Care Television Repairman Name Role Phone Varun Marinelli MD Primary Care Provider [phone] Allergies Active Allergy Reactions Criticality Noted Date [...] - Tdap) 1995 COVID-19 Vaccine (4 - 2024-2 6 season) 2025 11/17/2021, 02/02/2021, 01/12/2021 Influenza Vaccine 08/01/2025 10/02/2004 [...] ID:Not on file Type:Not on file Address: [place] [id number] Care Teams Television Repairman Relationship Specialty Start Date End Date Varun Marinelli MD PCP - General 05/04/18
--- OUTSIDE RECORDS SUMMARY | 2025-08-23 14:41 | XMS_ITS | Encounter Summary ---
Author Organization [facility] Address [address] [place] [address] Care Team Providers Care Wound Care Rn Name Role Phone Varun Marinelli MD Primary Care Provider [phone] Tiesha Hughes ESTABLISHMENT GUIDE Unavailable [phone] Shasha White DO Unavailable [phone] Encounter Details Date Type Department Care Team (Late st Contact Info) Description 11/27/2023 Clinisync Result Encounter [facility] External Department Unsolicited Delgado Murillo DO [address] [facility] [place] [address] Social History Tobacco Use Types Packs/Day Years [...] 3:10 PM EDT Office Visit [facility] [place] [facility] [address] [place] [phone] Delgado Murillo DO [address] [facility] [place] [address] documented as of this encounter Procedures Procedure Name Priority Date/Time Associated Diagnosis Comments MM TOMOSYNTHESIS SCREENING BI 11/27/2023 7:45 AM EST documented in this encounter Results * MM TOMOSYNTHESIS SCREENING BI (11/27/2023 7:45 AM EST) Anatomical Region Laterality Modality Other 11/27/2023 7:45 AM EST Narrative 11/27/2023 7:46 AM EST [address] [address] Mammography Report Signed Patient: PAIGE KEATING MR#: [id number] : 1975 Acct:[id number] Age/Sex: 48 / F ADM Date: 11/26/23 Loc: MAMMO Attending Dr: Delgado Murillo D.O. Ordering Physician: Delgado Murillo D.O. Results: Date of Service: 11/26/23 Follow Up: Procedure(s): MM tomosynthesis screening BI Accession Number(s): [id number] cc: Delgado Murillo D.O.; Varun Marinelli M.D. Patient Name: PAIGE KEATING MR#: [id number] : 1975 Exam Date: 11/26/2023 Ordering Doctor: DR Delgado Murillo . RADIOLOGY REPORT PROCEDURE: MM TOMOSYNTHESIS SCREENING BI COMPARISON: MG MAMM SCREEN 3D DEAN CAD, 09/12/2022. MG MAMM SCREEN 3D DEAN CAD, 07/26/2021. MG MAMM SCREEN DEAN W CAD, 12/20/2019. MG MAMM DAEN DIAG W CAD DIG, 05/26/2007. INDICATIONS: screening Calculator Name NCI Breast Cancer Risk Assessment Tool 5 Year Breast Cancer Risk 1.50% Lifetime Breast Cancer Risk 13.40% Personal Breast Cancer No Personal Ovarian Cancer No Treatments None Family Cancers Mother with lung cancer at age 68; Grandmother-maternal with breast cancer at age 64; Grandmother-paternal with ovarian cancer at age 76. LOCATION: The [facility] BREAST COMPOSITION: Scattered areas fibroglandular density. [...] M.D. Signed By: 11/27/23 0746 DD/ TD/TT: Healthcare Customer Service: Procedure Note Radiology, Radiologist, MD - 11/27/2023 [place] [address] Mammography Report Signed Patient: PAIGE KEATING NMR#: [id number] : 1975Acct:[id number] Age/Sex: 48 / FADM Date: 11/26/23 Loc: MAMMO Attending Dr: Delgado Murillo D.O. Ordering Physician: Delgado Murillo D.O.Results: Date of Service: 11/26/23Follow Up: Procedure(s): MM tomosynthesis screening BI Accession Number(s): [id number] cc: Delgado Murillo D.O.; Varun Marinelli M.D. Patient Name: PAIGE KEATING MR#: [id number] : 1975 Exam Date: 11/26/2023 Ordering Doctor: [...] with ovarian cancer atage 77. LOCATION: [facility] BREAST COMPOSITION: Scattered areas fibroglandular density. [...] 07:45 Dictated By: Aman Mckeon M.D. Signed By:11/27/23 0746 DD/ TD/TT: Healthcare Customer Service: Delgado Murillo DO [facility] Final Result documented in this encounter Visit Diagnoses Not on filedocumented in this encounter Care Teams Wound Care Rn Relationship Specialty Start Date End Date Varun Marinelli MD PCP - General Family Medicine 06/26/23 Tiesha Hughes NP Nurse Practitioner Neurology 02/03/25 Shasha White DO [address] [place] [address] Referring Physician Neurology 02/03/25 documented as of this encounter
--- OUTSIDE RECORDS SUMMARY | 2025-08-23 14:41 | XMS_ITS | Patient Health Record ---
Author Organization [facility] Address [address] [place] [address] Care Team Providers Care Information Technology Director Name Role Phone Varun Marinelli Primary Care Provider Unavailsalome Edwige Angeles Unavailable [phone] Aman Cifuentes Unavailable [phone] xxAngleShikha bateman Unavailable Allergies Allergen (clinical drug [...] Problem Status W/U Status Risk Notes Problem 07107022 Muscle spasm (M62.838) Active confirmed Problem 783539729392557 Primary osteoarthritis, right hand (M19.041) Active confirmed Problem 85066141 DDD (degenerativ e disc disease), cervical (M50.30) Active confirmed Problem Degeneration of cervical intervertebral disc (73395455) Degeneration of intervertebral disc at C6-C7 level (M50.323) Active confirmed Problem 04815349 Lumbar stenosis with neurogenic claudication (M48.062) Active confirmed Problem Degeneration of cervical intervertebral disc (29237279) 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) Active confirmed Problem 718739530 Facet arthropath y, 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) Active confirmed Problem Lumbar arthritis (disorder) (353089952) 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) Active confirmed Problem 410573421 Scapular dyskinesis (G25.89) Active confirmed Problem Cervical facet joint pain (finding) (669973353) Cervical facet syndrome (M47.812) Active confirmed Problem 400728078 Facet arthropath y (M47.819) Active confirmed Problem 713923614312413 HNP (herniated nucleus pulposus), thoracic (M51.24) Active confirmed Problem Generalized osteoarthritis of the hand (229949199) 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) Active confirmed Encounters Encounter Location Date Provider Diagnosis [facility] Office [address] [facility] [place] [address] 01/17/2025 Aman Cifuentes Primary osteoarthritis, right hand M19.041 [facility] [address] [facility] [place] [address] [place] [address] 02/18/[address] [facility] HNP (herniated nucleus pulposus), thoracic M51.24 [...] Test Name Order Date Cervical spine,ap,lat,flex,ext - 28387 0 08/12/2024 MRI : Lumbosacral Spine W/O [...] RIGHT 05/03/2024 SCC- HAND 3 VIEW RIGHT 85982 05/03/2024 SCC- LUMBAR 4 VIEW 75261 05/03/2024 Insurance Providers Payer Name Payer Address Payer Phone Subscriber Number Group Number Insured Name Patient Relationship to Insured Coverage Start Date Coverage End Date [facility] [address] [place] [phone] [id number] HORACIO KEATING Self - patient is the [...]
--- OUTSIDE RECORDS SUMMARY | 2025-08-23 14:41 | XMS_ITS | Clinical Summary ---
Author Organization [facility] Address [address] [place] [facility] [place] [address] Care Team Providers Care Lining Closer Name Role Phone Varun Marinelli MD Primary Care Provider [phone] Tiesha Hughes ROLL OFF DRIVER Unavailable [phone] Shasha White DO Unavailable [phone] Allergies Active Allergy Reactions Criticality Noted Date [...] 3 (three) times a day as needed. 3 Active doxepin (SINEquan) 10 MG capsule Take 10 mg by mouth at bedtime. 3 Active metoprolol tartrate (Lopressor) 75 MG tablet Take 50 mg by mouth in the morning and 50 mg before bedtime. 3 Active meloxicam (Mobic) 15 MG tablet Take 15 mg by mouth in the morning. 3 Active omeprazole (PriLOSEC) [address] capsule Take 40 mg by mouth in the morning and 40 mg in the evening. Active phentermine (Adipex-P) 37.5 MG tablet Take 37.5 mg by mouth in the morning. Take before meals. 3 Active tiZANidine (Zanaflex) 4 MG tablet Take 8 mg by mouth at bedtime. 3 Active testosterone (Fortesta) 10 MG/ACT (2%) gel gel 1 pump to skin in the morning to the thighs Transdermal QOD for 30 days 4 Active metFORMIN (Glucophage) 500 MG tablet Take 500 mg by mouth in the morning and 500 mg in the evening. Take with meals. Active amphetamine-dext roamphetamine XR (Adderall XR) 30 MG 24 hr capsule Take 30 mg by mouth in the morning. Do not crush or chew.. Active amphetamine-dext roamphetamine (Adderall) 10 MG tablet Take 10 mg [...] the skin Active estradiol (Estrace) 1 MG tabletIndication s:H/O: hysterectomy TAKE 1 TABLET DAILY (PATIENT NEEDS TO SCHEDULE OFFICE VISIT PRIOR TO ADDITIONAL REFILLS) 90 tablet 3 5 Active Encounters Date Type Department Care Team Description 07/14/2025 Refill [facility] [place] [facility] [address] [place] [address] [place] [address] Aura Murillo, H/O: hysterectomy from Last [...] 02/03/2025 8:24 AM EST Plan of Treatment Upcoming Encounters Date Type Department Care Team (Late st Contact Info) Description 09/26/2025 3:10 PM EDT Office Visit [facility] [place] [facility] [address] [place] [address] Aura Murillo, [address] [facility] [place] [address] Health Maintenance Due Date Last Done Comments CT Colonography 1975 FIT-DNA 1975 FIT 1975 FOBT 1975 Sigmoidoscopy 1975 Influenza Vaccine (#1) 2025 Mammogram 01/28/2026 01/28/2025, 11/27/2023 Pap Smear 11/22/2027 11/22/2024, 10/23/2023 Cervical Cancer Screening 10/23/2028 HPV/Cotest 10/23/2028 Colonoscopy 10/27/2034 10/27/2024, 1105/2024, 10/27/2024, Additional history exists Colorectal Cancer Screening [...] PM EST Narrative 01/28/2025 1:50 [place] [address] Mammography Report Signed Patient: PAIGE KEATING MR#: [id number] : 1975 Acct:[id number] Age/Sex: 49 / F ADM Date: 01/28/25 Loc: MAMMO Attending Dr: Aura Murillo D.O. Ordering Physician: Aura Murillo D.O. Results: Date of Service: 01/28/25 Follow Up: Procedure(s): MM tomosynthesis screening BI Accession Number(s): [id number] cc: Aura Murillo D.O.; Varun Marinelli M.D. Patient Name: PAIGE KEATING MR#: [id number] : 1975 Exam Date: 01/28/2025 Ordering Doctor: [...] ovarian cancer at age 77. LOCATION: The [facility] BREAST COMPOSITION: There are scattered areas [...] Signed By: 01/28/25 1350 DD/ 1349 TD/TT: Continuous Miner Operator: Procedure Note Radiology, Radiologist, MD - 01/28/2025 [place] [address] Mammography Report Signed Patient: PAIGE KEATING NMR#: [id number] : 1975Acct:[id number] Age/Sex: 49 / FADM Date: 01/28/25 Loc: MAMMO Attending Dr: Aura Murillo D.O. Ordering Physician: Aura Murilol D.O.Results: Date of Service: 01/28/25Follow Up: Procedure(s): MM tomosynthesis screening BI Accession Number(s): [id number] cc: Aura Murillo D.O.; Varun Marinelli M.D. Patient Name: PAIGE KEATING MR#: [id number] : 1975 Exam Date: 01/28/2025 Ordering Doctor: DR AURA MURILLO . RADIOLOGY REPORT PROCEDURE: MM TOMOSYNTHESIS SCREENING BI COMPARISON: MM TOMOSYNTHESIS SCREENING BI, 11/26/2023. MG MAMM [id number] DEAN CAD, 09/12/2022. MG MAMM SCREEN 3D [...] with ovarian cancer atage 77. LOCATION: The [facility] BREAST COMPOSITION: There are scattered areas [...] M.D. Signed By:01/28/25 1350 DD/ 1349 TD/TT: Continuous Miner Operator: Aura Lidia DO [facility] Final Result * Pap Smear (11/22/2024 12:00 AM EST) Swab Cervical swab / Unknown Aura Lidia DO LAB CYTOLOGY ORDERABLES Final Re sult EXTERNAL LAB from Last 3 Months or Most Recently Relevant to Health Maintenance Insurance [employer] Care Teams Lining Closer Relationship Specialty Start Date End Date Varun Marinelli MD PCP - General Family Medicine 06/26/23 Tiesha Hughes NP Nurse Practitioner Neurology 02/03/25 Shasha White DO [address] [place] [address] Referring Physician Neurology 02/03/25
--- OUTSIDE RECORDS SUMMARY | 2025-08-23 14:41 | XMS_ITS | Encounter Summary ---
Author Organization [facility] Address [address] [place] [address] Care Team Providers Care Etcher Photoengraving Name Role Phone Varun Marinelli MD Primary Care Provider [phone] Tiesha Hughes PM TECHNICIAN Unavailable [phone] Shasha White DO Unavailable [phone] Encounter Details Date Type Department Care Team (Late st Contact Info) Description 12/08/2024 Orders Only [facility] [place] [facility]UGYTom[facility] [address] [place] [phone] Bobbi Mcclain LPN [address] [place] [address] Social History Tobacco Use Types [...] EDT Office Visit [facility] [place] [facility] [address] [place] [address] Delgado Murillo DO [address] [place] [address] documented as of this encounter Procedures Procedure Name Priority Date/Time Associated Diagnosis Comments PAP SMEAR Routine 11/22/2024 12:00 AM EST documented in this encounter Results * Pap Smear (11/22/2024 12:00 AM EST) Swab Cervical swab / Unknown us Delgado Murillo DO LAB CYTOLOGY ORDERABLES Final Re sult EXTERNAL LAB documented in this encounter Visit Diagnoses Not on filedocumented in this encounter Care Teams Etcher Photoengraving Relationship Specialty Start Date End Date Varun Marinelli MD PCP - General Family Medicine 06/26/23 Tiesha Hughes NP Nurse Practitioner Neurology 02/03/25 Shasha White DO [address] [place] [address] Referring Physician Neurology 02/03/25 documented as of this encounter
--- OUTSIDE RECORDS SUMMARY | 2025-08-23 14:41 | XMS_ITS | Patient Health Record ---
Author Organization [facility] in [place] Address [address] [place] [address] Care Team Providers Care Line Technician Name Role Phone Finesse Marinelli Primary Care Provider Allergies Allergen (clinical drug ingredient) Drug/Non Drug Allergy documented on EMR Reaction Allergy Type Onset Date Status nitrofurantoin, macrocrystals / nitrofurantoin, monohydrate Macrobid neck swelling Drug Allergy Active albuterol Albuterol seizure Drug Allergy Active Results Component Value Reference Range Notes CBC AUTO DIFF Reviewed date:01/17/2025 04:47:29 PM Interpretation: Performing Lab: Notes/Report: [facility] , White Blood Count 6.5 4.0-11.0 [...] Performing Lab: see note ML - [facility] LB MAGNESIUM Reviewed date:08/14/2025 12:36:43 PM Interpretation: Performing Lab: Notes/Report: [facility] , Magnesium 1.9 1.8-2.4 mg/dL Performing Lab: see note ML - [facility] LB PHOSPHORUS Reviewed date:08/14/2025 12:36:43 PM Interpretation: Performing Lab: Notes/Report: [facility] , Phosphorus 4.2 2.6-4.7 mg/dL Performing Lab: see note ML - [facility] LB THYROID ANTIBODIES Reviewed date:08/15/2025 07:51:36 PM Interpretation: Performing Lab: Notes/Report: [facility] , Thyroid Peroxidase (TPO) Ab 13 0-34 IU/mL Thyroglobulin Antibody <1.0 0.0-0.9 IU/mL Thyroglobulin Antibody measured by Abril Clifton Methodology It should be noted that the presence of thyroglobulin antibodies may not be pathogenic nor diagnostic, especially at very low levels. The assay supervisor alteration workroom has found that four percent of individuals without evidence of thyroid disease or autoimmunity will have positive TgAb levels up to 4 IU/mL. Performed at: [address] [id number] Track Laying Machine Operator: Bowen Mcleod PhD, Phone: [phone] Performing Lab: see note - [facility] LB GLYCOHEMOGLOBIN A1C Reviewed date:11/08/2024 08:11:38 PM Interpretation: Performing Lab: Notes/Report: [facility] , Glycohemoglobin A1C 5.7 4.5-6.2 % ADA RECOMMENDED LIMIT 4.0 - 6.0 ADA THERAPEUTIC TARGET < 7.0 ACTION SUGGESTED > 7.0 Estimated Average Glucose 117 Performing Lab: see note ML - [facility] LB IRON Reviewed date:11/08/2024 08:11:38 PM Interpretation: Performing Lab: Notes/Report: [facility] , Iron 51.0 50.0-170.0 ug/dL Performing Lab: see note ML - [facility] LB LIVER PROFILE Reviewed date:11/08/2024 08:11:38 PM Interpretation: Performing Lab: Notes/Report: [facility] , Bilirubin Total 0.8 0.2-1.0 mg/dL Bilirubin Direct 0.1 0.0-0.2 mg/dL Aspartate Amino Transferase 12 15-37 U/L Alanine Aminotransferase 27 14-59 U/L Alkaline Phosphatase 56 46-116 U/L Total Protein 7.2 6.4-8.2 g/dL Albumin Level 3.9 3.4-5.0 g/dL Globulin 3.3 Albumin Globulin Ratio 1.2 Performing Lab: see note ML - [facility] US renal bladder Reviewed date:09/14/2024 05:40:06 PM Interpretation: Performing Lab: Notes/Report: Source Facility: [place] [address] Ultrasound Report Signed Patient: PAIGE KEATING MR#: [id number] : 1975 Acct:[id number] Age/Sex: 49 / F ADM Date: 09/13/24 Loc: US Attending Dr: Sami Marinelli M.D. Ordering Physician: Sami Marinelli M.D. Date of Service: 09/13/24 Procedure(s): US renal bladder Accession Number(s): [id number] cc: Sami Marinelli M.D. [place] [address] Patient Name: PAIGE KEATING MRN: [id number] date: 1975 Sex: F Assigned Patient Location: US Current Patient Location: Accession/Order Number: [id number] Exam Date: 09/13/2024 16:40 Report Date: 09/14/2024 [...] Sheehan M.D. Signed By: 09/14/2447 DD/ TD/TT: Fiscal Officer: US pelvis w/ transvaginal Reviewed date:09/14/2024 05:40:06 PM Interpretation: Performing Lab: Notes/Report: Source Facility: [place] [address] [place] [address] Ultrasound Report Signed Patient: PAIGE KEATING MR#: [id number] : 1975 Acct:[id number] Age/Sex: 49 / F ADM Date: 09/13/24 Loc: US Attending Dr: Sami Marinelli M.D. Ordering Physician: Sami Marinelli M.D. Date of Service: 09/13/24 Procedure(s): US pelvis w/ transvaginal Accession Number(s): [id number] cc: Sami [place]elli M.D. [place] [id number] Patient Name: PAIGE KEATING MRN: [id number] date: 1975 Sex: F Assigned Patient Location: US Current Patient Location: US Accession/Order Number: [id number] Exam Date: 09/13/2024 16:40 Report Date: 09/14/2024 [...] By: Abigail Sheehan M.D. Signed By: 09/14/24 1410 DD/ 1408 TD/TT: Fiscal Officer: CBC AUTO DIFF Reviewed date:10/07/2024 07:25:15 PM Interpretation: Performing Lab: Notes/Report: [facility] , White Blood Count 8.7 4.0-11.0 [...] 3/uL Performing Lab: see note ML - [facility] FREE T3 Reviewed date:10/07/2024 07:25:15 PM Interpretation: Performing Lab: Notes/Report: [facility] , Free T3 3.36 2.18-3.98 pg/mL Performing Lab: see note ML - [facility] INSULIN Reviewed date:10/09/2024 03:43:12 PM Interpretation: Performing Lab: Notes/Report: [facility] , Insulin 16.1 2.6-24.9 uIU/mL Performed at: [facility] [address] [id number] Track Laying Machine Operator: Bowen Mcleod PhD, Phone: [phone] Performing Lab: see note - [facility] LB PROF 14(COMP METB) Reviewed date:10/07/2024 07:25:15 PM Interpretation: Performing Lab: Notes/Report: [facility] , Sodium 142 136-145 mmol/L Potassium [...] 1.1 Performing Lab: see note ML - [facility] T4 Reviewed date:10/07/2024 07:25:16 PM Interpretation: Performing Lab: Notes/Report: [facility] , T4 Thyroxine 10.40 4.80-13.90 ug/dL Performing Lab: see note - [facility] TSH Reviewed date:10/07/2024 07:25:16 PM Interpretation: Performing Lab: Notes/Report: [facility] , Thyroid Stimulating Hormone 2.291 0.358-3.740 uIU/mL Performing Lab: see note - [facility] Testosterone Reviewed date:10/09/2024 03:43:12 PM Interpretation: Performing Lab: Notes/Report: [facility] , Testosterone <3 4-50 ng/dL Performing Lab: see note - [facility] LB FSH Reviewed date:10/09/2024 03:43:12 PM Interpretation: Performing Lab: Notes/Report: [facility] , FSH 98.5 . mIU/mL Adult Female Range Follicular phase 3.5 - 12.5 Ovulation phase 4.7 - 21.5 Luteal phase 1.7 - 7.7 Postmenopausal 25.8 - 134.8 Performed at: [facility] [address] [id number] Track Laying Machine Operator: Bowen Mcleod PhD, Phone: [phone] Performing Lab: see note - [facility] LB ROSS by IFA Reviewed date:10/17/2024 01:38:38 PM Interpretation: Performing Lab: Notes/Report: [facility] , Antinuclear Antibodies, IFA Positive . Negative <1:80 Borderline 1:80 Positive >1:80 Homogeneous Pattern 1:80 . ICAP nom enclature: AC-1 Nucleolar Pattern TNP . Speckled Pattern TNP . Centromere Pattern TNP . Spindle Apparatus Pattern TNP . Nuclear Membrane Pattern TNP . Midbody Pattern TNP . Nuclear Dot Pattern TNP . PCNA Pattern TNP . Centriole Pattern TNP . Note: Comment . Pattern Potential Disease Association Homogeneous Systemic Lupus Erythematosus, Drug Induced Systemic Lupus Erythematosus, Chronic Autoimmune hepatitis, Juvenile Idiopathic Arthritis Speckled Sjogren Syndrome, Systemic Lupus Erythematosus, Subacute Cutaneous Lupus, Lupus, Congenital Heart Block, Mixed Connective Tissue Disease, Scleroderma-diffuse, Scleroderma-Autoimmune Myositis Overlap Syndrome, Systemic Lupus Erythematosus-Scleroderm a-Autoimmune Myositis Overlap Syndrome, Systemic Autoimmune Rheumatic Disease, Undifferentiated Connective Tissue Disease Nucleolar Systemic Sclerosis, Scleroderma-Autoimmune Myositis Overlap Syndrome, Sjogren Syndrome, Raynaud phenomenon, Pulmonary Arterial Hypertension, Systemic Autoimmune Rheumatic Disease, Cancer Centromere Scleroderma-CREST, Limited Cutaneous SSc, Raynaud's Phenomenon, Primary Biliary Cholangitis Nuclear Dot Primary Biliary Cholangitis Nuclear Primary Biliary Cholangitis, Autoimmune Membrane Hepatitis/Liver disease, Systemic Autoimmune Rheumatic Disease, Autoimmune Cytopenias, Linear Scleroderma, Antiphospholipid Syndrome Performed at: - [facility] [address] [id number] Track Laying Machine Operator: Bowen Mcleod PhD, Phone: [phone] Performing Lab: see note - [facility] LB CRP Reviewed date:10/13/2024 07:34:20 PM Interpretation: Performing Lab: Notes/Report: [facility] , C Reactive Protein <0.50 <=0.50 mg/dL Performing Lab: see note ML - [facility] LB PROF 14(COMP METB) Reviewed date:10/13/2024 07:34:20 PM Interpretation: Performing Lab: Notes/Report: [facility] , Sodium 140 136-145 mmol/L Potassium [...] Ratio 1.1 Performing Lab: see note - [facility] LB RHEUMATOID FACTOR Reviewed date:10/17/2024 01:38:38 PM Interpretation: Performing Lab: Notes/Report: [facility] , Rheumatoid Factor (RF) <10.0 <14.0 IU/mL Performing Lab: see note [facility] LB URIC ACID SERUM Reviewed date:10/13/2024 07:34:20 PM Interpretation: Performing Lab: Notes/Report: [facility] , Uric Acid 6.4 2.6-6.0 mg/dL Performing Lab: see note - [facility] LB Testosterone Reviewed date:10/17/2024 01:38:38 PM Interpretation: Performing Lab: Notes/Report: [facility] , Testosterone <3 4-50 ng/dL Performed at: [address] [id number] Track Laying Machine Operator: Bowen Mcleod PhD, Phone: [phone] Performing Lab: see note [facility] LB Antistreptolysin O Ab Reviewed date:10/17/2024 01:38:38 PM Interpretation: Performing Lab: Notes/Report: [facility] , Antistreptolysin O Ab 52.6 0.0-200.0 IU/mL Performed at: [address] [id number] Track Laying Machine Operator: Bowen Mcleod PhD, Phone: [phone] Performing Lab: see note [facility] LB Acute Hepatitis Reviewed date:10/15/2024 06:25:47 AM Interpretation: Performing Lab: Notes/Report: [facility] , Hep A Ab, IgM Negative Negative A negative anti-HAV IgM result suggests no recent or current HAV infection. HBsAg Screen Negative Negative Hep B Core Ab, IgM Negative Negative HCV Ab Non Reactive Non Reactive Interpretation: Comment . Not infected with HCV unless early or acute infection is suspected (which may be delayed in an immunocompromised individual), or other evidence exists to indicate HCV infection. Performed at: [address] [id number] Track Laying Machine Operator: Bowen Mcleod PhD, Phone: [phone] Performing Lab: see note [facility] LB US right upper quadrant Reviewed date:10/15/2024 06:25:47 AM Interpretation: Performing Lab: Notes/Report: Source Facility: [place] [address] Ultrasound Report Signed Patient: PAIGE KEATING MR#: [id number] : 1975 Acct:[id number] Age/Sex: 49 / F ADM Date: 10/13/24 Loc: US Attending Dr: Sami Marinelli M.D. Ordering Physician: Sami Marinelli M.D. Date of Service: 10/13/24 Procedure(s): US right upper quadrant Accession Number(s): [id number] cc: Sami Marinelli M.D. [place] [address] Patient Name: PAIGE KEATING MRN: [id number] date: 1975 Sex: F Assigned Patient Location: US Current Patient Location: Accession/Order Number: [id number] Exam Date: 10/13/2024 07:02 Report Date: 10/14/2024 [...] M.D. Signed By: 10/14/24444 DD/ 2 TD/TT: Fiscal Officer: LAB TESTING Reviewed date:11/10/2024 07:25:39 PM Interpretation: Performing Lab: Notes/Report: [id number] SLE PROFILE A [facility] , Miscellaneous Test COMMENT . Test Ordered: [id number] Systemic Lupus Profile A DOLL WIG MAKER ROOTED HAIR Antibodies 0.2 AI CB Reference Range: 0.0-0.9 Spann Antibodies <0.2 AI CB Reference Range: 0.0-0.9 Rheumatoid Factor (RF) <10.0 IU/mL CB Reference Range: <14.0 Antichromatin Antibodies <0.2 AI CB Reference Range: 0.0-0.9 Sjogren's Anti-SS-A <0.2 AI CB Reference Range: 0.0-0.9 Sjogren's Anti-SS-B <0.2 AI CB Reference Range: 0.0-0.9 Anti-DNA (DS) Ab Qn <1 IU/mL CB Reference Range: 0-9 Negative <5 Equivocal 5 - 9 Positive >9 Performed at: [facility] [employer] [id number] Track Laying Machine Operator: Bowen Mcleod PhD, Phone: [phone] Performing Lab: see note [facility] LAB TESTING Reviewed date:11/10/2024 07:25:39 PM Interpretation: Performing Lab: Notes/Report: [id number] SLE PROFILE B [facility] , Miscellaneous Test COMMENT . Test Ordered: [id number] Systemic Lupus Profile B Complement C4, Serum 25 mg/dL CB Reference Range: 12-38 Complement C3, Serum 144 mg/dL CB Reference Range: 82-167 Anti-DNA (DS) Ab Qn <1 IU/mL CB Reference Range: 0-9 Negative <5 Equivocal 5 - 9 Positive >9 Antichromatin Antibodies <0.2 AI CB Reference Range: 0.0-0.9 ROSS Direct Negative CB Reference Range: Negative Performed at: [address] [id number] Track Laying Machine Operator: Bowen Mcleod PhD, Phone: [phone] Performing Lab: see note [facility] LB LAB TESTING Reviewed date:11/10/2024 07:25:39 PM Interpretation: Performing Lab: Notes/Report: [id number] MITOCHONDRIAL ANTIBODY [facility] , Miscellaneous Test COMMENT . Test Ordered: [id number] Mitochondrial (M2) Antibody Mitochondrial (M2) Antibody <20.0 Units CB Reference Range: 0.0-20.0 Negative 0.0 - 20.0 Equivocal 20.1 - 24.9 Positive >24.9 Mitochondrial (M2) Antibodies are found in 90-96% of patients with primary biliary cirrhosis. Performed at: [address] [id number] Track Laying Machine Operator: Bowen Mcleod PhD, Phone: [phone] Performing Lab: see note - [facility] LB LAB TESTING Reviewed date:11/10/2024 07:25:39 PM Interpretation: Performing Lab: Notes/Report: [id number] SMOOTH MUSCLE ANTIBODY [facility] , Miscellaneous Test COMMENT . Test Ordered: [id number] Actin (Smooth Muscle) Antibody Actin (Smooth Muscle) Antibody 5 Units CB Reference Range: 0-19 Negative 0 - 19 Weak positive 20 - 30 Moderate to strong positive >30 Actin Antibodies are found in 52-85% of patients with autoimmune hepatitis or chronic active hepatitis and in 22% of patients with primary biliary cirrhosis. Performed at: [address] [id number] Track Laying Machine Operator: Bowen Mcleod PhD, Phone: [phone] Performing Lab: see note - [facility] LB MR cervical spine wo con Reviewed date:11/15/2024 02:07:00 PM Interpretation: Performing Lab: Notes/Report: Source Facility: [place] [address] Magnetic Resonance Report Signed Patient: PAIGE KEATING MR#: [id number] : 1975 Acct:[id number] Age/Sex: 49 / F ADM Date: 11/12/24 Loc: MRI Attending Dr: Kyle Streeter NP Ordering Physician: Kyle Streeter NP Date of Service: 11/12/24 Procedure(s): MR cervical spine wo con Accession Number(s): [id number] cc: Kyle Streeter NP; Sami Marinelli M.D. [place] [address] Patient Name: PAIGE KEATING MRN: [facility]:[id number] date: 1975 Sex: F Assigned Patient Location: MRI Current Patient Location: Accession/Order Number: [id number] Exam Date: 11/12/2024 13:48 Report Date: 11/15/2024 [...] Dictated By: Paulino Blount M.D. Signed By: 11/15/2429 DD/ 5 TD/TT: Fiscal Officer: MM tomosynthesis screening B I Reviewed date:01/30/2025 12:35:04 PM Interpretation: Performing Lab: Notes/Report: Source Facility: [facility] [place] [address] [place] [address] Mammography Report Signed Patient: PAIGE KEATING MR#: [id number] : 1975 Acct:[id number] Age/Sex: 49 / F ADM Date: 01/28/25 Loc: MAMMO Attending Dr: Aura Murillo D.O. Ordering Physician: Aura Murillo D.O. Results: Date of Service: 01/28/25 Follow Up: Procedure(s): MM tomosynthesis screening BI Accession Number(s): [id number] cc: Aura Murillo D.O.; Sami Marinelli M.D. Patient Name: PAIGE KEATING MR#: [id number] : 1975 Exam Date: 01/28/2025 Ordering Doctor: [...] ovarian cancer at age 77. LOCATION: [facility] BREAST COMPOSITION: There are scattered areas [...] J Carlos Cat M.D. Signed By: 01/28/25 1352 DD/ 1349 TD/TT: Fiscal Officer: ROSS by IFA Reviewed date:08/15/2025 07:51:36 PM Interpretation: Performing Lab: Notes/Report: [facility] , Antinuclear Antibodies, IFA Negative . Negative <1:80 Borderline 1:80 Positive >1:80 ICAP nomenclature: AC-0 For more information about Hep-2 cell patterns use ANApatterns.org, the official website for the International Consensus on Antinuclear Antibody (ROSS) Patterns (ICAP). Performed at: [facility] [id number] Track Laying Machine Operator: Bowen Mcleod PhD, Phone: [phone] Performing Lab: see note - [facility] LB CBC AUTO DIFF Reviewed date:08/14/2025 12:36:43 PM Interpretation: Performing Lab: Notes/Report: [facility] , White Blood Count 6.7 4.0-11.0 10 3/uL Red Blood Count 4.37 4.20-5.40 10 6/uL Hemoglobin 13.7 12.0-16.0 g/dL Hematocrit 39.9 36.0-48.0 % Mean Corpuscular Volume 91.3 81.0-99.0 fL Mean Corpuscular Hemoglobin 31.4 26.7-34.0 pg Mean Corpuscular HGB Conc 34.3 29.9-35.2 g/dL Red Cell Distribution Width 12.0 11.0-15.0 % Platelet Count 231 150-450 10 3/uL Mean Platelet Volume 10.4 9.5-13.5 fL Neutrophils Percent Auto 50.7 43.0-75.0 % Lymphocytes Percent Auto 42.1 20.5-60.0 % Monocytes Percent Auto 5.5 1.7-12.0 % Eosinophils Percent Auto 1.0 0.9-7.0 % Basophils Percent Auto 0.4 0.2-2.0 % Immature Granulocytes Pct Auto 0.3 0.0-0.5 % Neutrophils Absolute Auto 3.4 1.4-6.5 10 3/uL Lymphocytes Absolute Auto 2.8 1.2-3.8 10 3/uL Monocytes Absolute Auto 0.4 0.3-0.8 10 3/uL Eosinophils Absolute Auto 0.1 0.0-0.7 10 3/uL Basophils Absolute Auto 0.0 0.0-0.1 10 3/uL Immature Granulocytes Abs Auto 0.02 0.00-0.03 10 3/uL Performing Lab: see note ML - [facility] LB CRP Reviewed date:08/14/2025 12:36:43 PM Interpretation: Performing Lab: Notes/Report: [facility] , C Reactive Protein <0.50 <=0.50 mg/dL Performing Lab: see note - [facility] FREE T3 Reviewed date:08/14/2025 12:36:43 PM Interpretation: Performing Lab: Notes/Report: [facility] , Free T3 2.20 2.18-3.98 pg/mL Performing Lab: see note ML - [facility] LB INSULIN Reviewed date:08/14/2025 01:13:07 PM Interpretation: Performing Lab: Notes/Report: [facility] , Insulin 13.5 2.6-24.9 uIU/mL Performed at: - [facility] [address] [id number] Track Laying Machine Operator: Bowen Mcleod PhD, Phone: [phone] Performing Lab: see note - [facility] LB IRON Reviewed date:08/14/2025 12:36:43 PM Interpretation: Performing Lab: Notes/Report: [facility] , Iron 71.0 50.0-170.0 ug/dL Performing Lab: see note ML - [facility] LB LIPID PROFILE Reviewed date:08/14/2025 12:36:43 PM Interpretation: Performing Lab: Notes/Report: [facility] , Triglycerides 204 <=150 mg/dL Cholesterol 215 <=200 mg/dL HDL Cholesterol 40 40-60 mg/dL > or =60 mg/dl - LOW CARDIOVASCULAR RISK <40 mg/dl - HIGH CARDIOVASCULAR RISK LDL Cholesterol Calculated 135.0 <100 mg/dl OPTIMAL 100-129 mg/dl NEAR OR ABOVE OPTIMAL 130-159 mg/dl BORDERLINE HIGH 160-189 mg/dl HIGH >190 mg/dl VERY HIGH VLDL CHOLESTEROL 40.8 Chol HDL Ratio 5.4 3.3 - 4.4 LOW RISK 4.4 - 7.1 AVERAGE RISK 7.1 - 11.0 MODERATE RISK >11.0 HIGH RISK Performing Lab: see note ML - [facility] LB PROF 14(COMP METB) Reviewed date:08/14/2025 12:36:43 PM Interpretation: Performing Lab: Notes/Report: [facility] , Sodium 143 136-145 mmol/L Potassium 3.9 3.5-5.1 mmol/L Chloride 106 98-107 mmol/L Carbon Dioxide 28.6 21.0-32.0 mmol/L Anion Gap 12.3 Glucose 101 74-106 mg/dL Blood Urea Nitrogen 12.0 7.0-18.0 mg/dL Creatinine 0.74 0.55-1.02 mg/dL Estimated GFR ( Blank >60 >=60 mL/min/1.73m 2 Estimated GFR (Non- [place] >60 >=60 mL/min/1.73m 2 BUN Creatinine Ratio 16.2 Calcium 8.9 8.5-10.1 mg/dL Bilirubin Total 1.0 0.2-1.0 mg/dL Aspartate Amino Transferase 15 15-37 U/L Alanine Aminotransferase 33 14-59 U/L Alkaline Phosphatase 64 46-116 U/L Total Protein 7.6 6.4-8.2 g/dL Albumin Level 4.2 3.4-5.0 g/dL Globulin 3.4 Albumin Globulin Ratio 1.2 Performing Lab: see note ML - [facility] LB RHEUMATOID FACTOR Reviewed date:08/15/2025 07:51:36 PM Interpretation: Performing Lab: Notes/Report: [facility] , Rheumatoid Factor (RF) <10.0 <14.0 IU/mL Performing Lab: see note LC - [facility] LB T4 Reviewed date:08/14/2025 12:36:43 PM Interpretation: Performing Lab: Notes/Report: [facility] , T4 Thyroxine 7.80 4.80-13.90 ug/dL Performing Lab: see note ML - [facility] LB TSH Reviewed date:08/14/2025 12:36:43 PM Interpretation: Performing Lab: Notes/Report: [facility] , Thyroid Stimulating Hormone 0.906 0.358-3.740 uIU/mL Performing Lab: see note [facility] LB UA RANDOM W or MICROSCOPIC Reviewed date:08/14/2025 12:36:43 PM Interpretation: Performing Lab: Notes/Report: [facility] , Color Urine YELLOW YELLOW Clarity Urine CLEAR CLEAR Specific [place] Urine >=1.030 1.005-1.025 pH Urine 5.5 5.0-9.0 Protein Urine NEGATIVE NEG/TRACE mg/dL Glucose Urine UA NEGATIVE NEGATIVE mg/dL Bilirubin Urine NEGATIVE NEGATIVE Ketones Urine NEGATIVE NEGATIVE mg/dL Blood Urine NEGATIVE NEGATIVE Nitrite Urine NEGATIVE NEGATIVE Urobilinogen Urine 0.2 0.2-1.0 EU/dL Leukocyte Esterase Urine NEGATIVE NEGATIVE WBC Urine NONE SEEN NONE SEEN #/HPF RBC Urine 2-5 0-2 #/HPF Bacteria Urine TRACE NONE SEEN #/HPF Mucus Urine NONE SEEN NONE SEEN Squamous Epithelial Cell Urine MODERATE NONE/RARE #/LPF Crystals Seen? None Seen None Seen #/HPF Cast Seen? NONE SEEN NONE SEEN #/LPF Urine Culture Indicated ALREADY ORDERED Performing Lab: see note - [facility] LB URIC ACID SERUM Reviewed date:08/14/2025 12:36:43 PM Interpretation: Performing Lab: Notes/Report: [facility] , Uric Acid 5.0 2.6-6.0 mg/dL Performing Lab: see note - [facility] LB Testosterone Reviewed date:08/15/2025 07:51:36 PM Interpretation: Performing Lab: Notes/Report: [facility] , Testosterone <3 4-50 ng/dL Performed at: [address] [id number] Track Laying Machine Operator: Bowen Mcleod PhD, Phone: [phone] Performing Lab: see note [facility] LB Antistreptolysin O Ab Reviewed date:08/15/2025 07:51:36 PM Interpretation: Performing Lab: Notes/Report: [facility] , Antistreptolysin O Ab 57.0 0.0-200.0 IU/mL Performed at: [address] [id number] Track Laying Machine Operator: Bowen Mcleod PhD, Phone: [phone] Performing Lab: see note [facility] LB Vitamin D, 25-Hydroxy Reviewed date:08/15/2025 07:51:36 PM Interpretation: Performing Lab: Notes/Report: [facility] Vitamin D, 25-Hydroxy 31.2 30.0-100.0 ng/mL Vitamin D deficiency has been defined by the [place] of Medicine and an Endocrine Society practice guideline as a level of serum 25-OH vitamin D less than 20 ng/mL (1,2). The Endocrine Society went on to further define vitamin D insufficiency as a level between 21 and 29 ng/mL (2). 1. IOM ([place] of Medicine). 2010. Dietary reference intakes for calcium and D. [place]: The National Academies Press. 2. Benita MF, Kyra ALEXANDRE, Hal RIVERA, et al. Evaluation, treatment, and prevention of vitamin D deficiency: an Endocrine Society clinical practice guideline. JCEM. 2010; 96(7):1911-30. Performed at: [facility] [employer] [id number] Track Laying Machine Operator: Bowen Mcleod PhD, Phone: [phone] Performing Lab: see note [facility] Vitamin B12 Reviewed date:08/14/2025 12:36:43 PM Interpretation: Performing Lab: Notes/Report: [place] Vitamin B12 904 428-0085 pg/mL Performed at: [facility] [address] [id number] Track Laying Machine Operator: Bowen Mcleod PhD, Phone: [phone] Performing Lab: see note [facility] LB Urine Culture - [facility] Reviewed date:08/15/2025 01:10:10 PM Interpretation: Performing Lab: Notes/Report: [facility] , Urine Culture - [facility] See Below For Report Urine Culture - [facility] >100,000 colonies/ml mixed [facility]rine [facility] bacterial skin contaminants [facility] - [facility] >100,000 colonies/ml mixed Urine Culture - [facility] 2 Days Urine Culture - [facility] >100,000 colonies/ml mixed [facility]rine [facility] - [facility] Urine [facility] - [facility] >100,000 colonies/ml mixed [facility]rine [facility] - [facility] Testing performed a [facility] Urine Culture - [facility] >100,000 colonies/ml mixed Urine Culture - [facility] [address] [place] [address] Urine Culture - FR >100,000 colonies/ml mixed Performing Lab: see note ML - [facility] LB Immunoglobulins A/G/M, Qn, S er Reviewed date:08/14/2025 01:13:07 PM Interpretation: Performing Lab: Notes/Report: [facility] , Immunoglobulin G, Qn, Serum 5859 141-2081 mg/dL Immunoglobulin A, Qn, Serum 225 87-352 mg/dL Immunoglobulin M, Qn, Serum 93 26-217 mg/dL Performed at: [facility] [address] [id number] Track Laying Machine Operator: Bowen Mcleod PhD, Phone: [phone] Performing Lab: see note - [facility] LB GLYCOHEMOGLOBIN A1C Reviewed date:08/14/2025 12:36:43 PM Interpretation: Performing Lab: Notes/Report: [facility] , Glycohemoglobin A1C 5.4 4.5-6.2 % ADA RECOMMENDED LIMIT 4.0 - 6.0 ADA THERAPEUTIC TARGET < 7.0 ACTION SUGGESTED > 7.0 Estimated Average Glucose 108 Performing Lab: see note ML - [facility] FOLATE Reviewed date:08/14/2025 12:36:43 PM Interpretation: Performing Lab: Notes/Report: [facility] , Folate 14.40 8.60-58.90 ng/mL Performing Lab: see note ML - [facility] LB MR thoracic spine wo con Reviewed date:01/30/2025 12:35:04 PM Interpretation: Performing Lab: Notes/Report: Source Facility: [facility]-[address] [place] [address] [place] [address] Magnetic Resonance Report Signed Patient: PAIGE KEATING MR#: [id number] : 1975 Acct:[id number] Age/Sex: 49 / F ADM Date: 01/28/25 Loc: MRI Attending Dr: Sami Marinelli M.D. Ordering Physician: Sami Marinelli M.D. Date of Service: 01/28/25 Procedure(s): MR thoracic spine wo con Accession Number(s): [id number] cc: Sami Marinelli M.D. [place] [id number] Patient Name: PAIGE KEATING MRN: [id number] date: 1975 Sex: F Assigned Patient Location: MRI Current Patient Location: MRI Accession/Order Number: [id number] Exam Date: 01/28/2025 15:57 Report Date: 01/28/2025 [...] Carlos Cat M.D.01/28/2025 4:11 PM Dictation Location: [place] [address] Electronically authenticated by: [id number] Y Date: 01/28/2025 16:11 Dictated By: J Carlos Cat M.D. Signed By: 01/28/25 1614 DD/ 10 TD/TT: Fiscal Officer: Antistreptolysin O Ab Reviewed date:01/18/2025 09:16:06 PM Interpretation: Performing Lab: Notes/Report: [facility] , Antistreptolysin O Ab 56.3 0.0-200.0 IU/mL Performed at: [facility] [address] [id number] Track Laying Machine Operator: Bowen Mcleod PhD, Phone: [phone] Performing Lab: see note - [facility] LB Erythrocyte Sedimentation Ra te Reviewed date:01/17/2025 04:47:29 PM Interpretation: Performing Lab: Notes/Report: [facility] , Erythrocyte Sedimentation Rate 9 <=20 mm/hr Performing Lab: see note ML - [facility] LB URIC ACID SERUM Reviewed date:01/17/2025 04:47:29 PM Interpretation: Performing Lab: Notes/Report: [facility] , Uric Acid 4.5 2.6-6.0 mg/dL Performing Lab: see note ML - [facility] LB RHEUMATOID FACTOR Reviewed date:01/18/2025 09:16:06 PM Interpretation: Performing Lab: Notes/Report: [facility] , Rheumatoid Factor (RF) <10.0 <14.0 IU/mL Performing Lab: see note - [facility] LB CRP Reviewed date:01/17/2025 04:47:29 PM Interpretation: Performing Lab: Notes/Report: [facility] , C Reactive Protein <0.50 <=0.50 mg/dL Performing Lab: see note ML - [facility] LB ROSS by IFA Reviewed date:01/18/2025 09:15:56 PM Interpretation: Performing Lab: Notes/Report: [facility] , Antinuclear Antibodies, IFA Positive . Negative <1:80 Borderline 1:80 Positive >1:80 Homogeneous Pattern TNP . Nucleolar Pattern TNP . Speckled Pattern 1:160 . ICAP nomenc lature: AC-2,4,5,29 Centromere Pattern TNP . Spindle Apparatus Pattern TNP . Nuclear Membrane Pattern TNP . Midbody Pattern TNP . Nuclear Dot Pattern TNP . PCNA Pattern TNP . Centriole Pattern TNP . Note: Comment . Pattern Potential Disease Association Homogeneous Systemic Lupus Erythematosus, Drug Induced Systemic Lupus Erythematosus, Chronic Autoimmune hepatitis, Juvenile Idiopathic Arthritis Speckled Sjogren Syndrome, Systemic Lupus Erythematosus, Subacute Cutaneous Lupus, Lupus, Congenital Heart Block, Mixed Connective Tissue Disease, Scleroderma-diffuse, Scleroderma-Autoimmune Myositis Overlap Syndrome, Systemic Lupus Erythematosus-Scleroderm a-Autoimmune Myositis Overlap Syndrome, Systemic Autoimmune Rheumatic Disease, Undifferentiated Connective Tissue Disease Nucleolar Systemic Sclerosis, Scleroderma-Autoimmune Myositis Overlap Syndrome, Sjogren Syndrome, Raynaud phenomenon, Pulmonary Arterial Hypertension, Systemic Autoimmune Rheumatic Disease, Cancer Centromere Scleroderma-CREST, Limited Cutaneous SSc, Raynaud's Phenomenon, Primary Biliary Cholangitis Nuclear Dot Primary Biliary Cholangitis Nuclear Primary Biliary Cholangitis, Autoimmune Membrane Hepatitis/Liver disease, Systemic Autoimmune Rheumatic Disease, Autoimmune Cytopenias, Linear Scleroderma, Antiphospholipid Syndrome Performed at: [facility] [place] [facility] [address] [id number] Track Laying Machine Operator: Bowen Mcleod PhD, Phone: [phone] Performing Lab: see note - [facility] LB IGP,Aptima HPV,Age Gdln Reviewed date:12/01/2024 03:16:58 PM Interpretation: Performing Lab: Notes/Report: MARIA E MOLINA [facility] , Age Gdln ACOG Testing Note . TESTS RESULT FLAG UNITS REF RANGE LAB Clinician Provided Cytology Information Source.............Anaid oquendo No. of containers..01 ThinPrep Vial Age Algo ACOG Mya... 30-65 FLAG LEGEND: L-Low Normal,H-High Normal,LL-Alert Low,HH-Alert High <-Panic Low,>-Panic High,A-Abnormal,AA-Criti mrata Abnormal Performed at: 01 =G [address] [place] [address] Britta Wang MD, IGP, Aptima HPV, rfx 16/18,45 Note . TESTS RESULT FLAG UNITS REF RANGE LAB DIAGNOSIS: 02 NEGATIVE FOR INTRAEPITHELIAL LESION OR MALIGNANCY. FUNGAL ORGANISMS MORPHOLOGICALLY CONSISTENT WITH VIVIANE SPECIES ARE PRESENT. Specimen adequacy: 02 Satisfactory for evaluation. Endocervical and/or squamous metaplastic cells (endocervical component) are present. Performed by: 02 Steve Saenz, Cable Spooler ([facility]) . 02 Note: Note 03 The Pap [...] L-Low Normal,H-High Normal,LL-Alert Low,HH-Alert High <-Panic Low,>-Panic High,A-Abnormal,AA-Criti marta Abnormal Performed at: 02 [facility] [address] [place] [address] Kristian Waterman MD, [address] [address] Britta Wang MD, HPV Aptima Negative Negative This nucleic acid amplification test detects fourteen high- risk HPV types (16,18,31,33,35,39,45,51 ,52,56,58,59,66,68) without differentiation. Performed at: = - [address] [id number] Track Laying Machine Operator: Britta Wang MD, Phone: [phone] Performed at: [facility] [address] [place] [id number] Track Laying Machine Operator: Kristian Waterman MD, Phone: [phone] Performing Lab: see note [facility] t-Transglutaminase (tTG) IgA Reviewed date:11/10/2024 07:25:39 PM Interpretation: Performing Lab: Notes/Report: [facility] , t-Transglutaminase (tTG) IgA <2 0-3 U/mL Negative 0 - 3 Weak Positive 4 - 10 Positive >10 Tissue Transglutaminase (tTG) has been identified as the endomysial antigen. Studies have demonstr- ated that endomysial IgA antibodies have over 99% specificity for gluten sensitive enteropathy. Performed at: [address] [id number] Track Laying Machine Operator: Bowen Mcleod PhD, Phone: [phone] Performing Lab: see note [facility] LB Immunoglobulin G, Qn, Serum Reviewed date:11/10/2024 07:25:39 PM Interpretation: Performing Lab: Notes/Report: [facility] , Immunoglobulin G, Qn 622 295-9496 mg/dL Performing Lab: see note - [facility] LB Immunoglobulin A, Qn, Serum Reviewed date:11/10/2024 07:25:39 PM Interpretation: Performing Lab: Notes/Report: [facility] , Immunoglobulin A, Qn 187 87-352 mg/dL Performed at: [facility] [address] [id number] Track Laying Machine Operator: Bowen Mcleod PhD, Phone: [phone] Performing Lab: see note - [facility] LB Occult Blood* Reviewed date:10/09/2024 03:43:12 PM Interpretation: Performing Lab: Notes/Report: [facility] , Occult Blood Positive Performing Lab: see note ML - [facility] GLYCOHEMOGLOBIN A1C Reviewed date:10/07/2024 07:25:15 PM Interpretation: Performing Lab: Notes/Report: [facility] , Glycohemoglobin A1C 6.1 4.5-6.2 % ADA RECOMMENDED LIMIT 4.0 - 6.0 ADA THERAPEUTIC TARGET < 7.0 ACTION SUGGESTED > 7.0 Estimated Average Glucose 128 Performing Lab: see note ML - [facility] Reason For Referral Reason Had last colonoscopy with you in 2018 Diagnosis 1 Positive occult stoo l blood test (R19.5) Referral Organization [facility] Referring Provider First Name Finesse Referring Provider Last Name [facility] Referring Provider [facility] Referred Provider Nicola Gee Referred Provider Specialty General Surg rita Referral Priority Routine Diagnosis 1 Elevated liver enzym es (R74.8) Referral Organization [facility] Referring Provider First Name Finesse Referring Provider Last Name [facility] Referring Provider [facility] Referred Provider Vinayak Baltazar Referred Provider Specialty Gastroentero logy Referral Priority Routine Diagnosis 1 Hand arthritis (M12. 9) Diagnosis 2 Other specified arth ritis, right hand (M13.841) Referral Organization [facility] Referring Provider First Name Finesse Referring Provider Last Name [facility] Referring Provider [facility] Referred Provider Nathan Vidal Referred Provider Specialty Rheumatology Referral Priority Routine Diagnosis 1 Other specified arth ritis, right hand (M13.841) Referral Organization [facility] Referring Provider First Name Finesse Referring Provider Last Name [facility] Referring Provider [facility] Referred Provider Rosalind Lara Referred Provider Specialty Orthopedic S urgery Referral Priority Routine Medications Medication SIG (Take, Route, Frequency, Duration) Notes Start Date End Date Status Cipro 500 MG 1 tablet Orally BID; Duration: 10 days 03/01/2025 Active Omeprazole 40 MG 1 capsule Orally twi ce a day; Duration: 90 days Active Estradiol 0.5 MG 1 tablet Orally Once a day; Duration: 30 days 10/07/2024 Active Ondansetron 4 MG 1 tablet on the tong ue and allow to dissolve Orally Once a day; Duration: 30 days 09/03/2024 Active ALPRAZolam 0.25 MG [...] am ; Duration: 30 days 08/05/2025 Active Metoprolol Tartrate 75 mg TAKE 1 TABLET TWICE A DAY WITH FOOD Active Adderall XR 30 MG 1 capsule in the mor meagan Orally Once a day; Duration: 30 days 02/09/2025 Active Mupirocin 2 % 1 application Chestnut Tanner ally Twice a day; Duration: 5 days 03/23/2025 Active Lisinopril 10 MG 1 tablet Orally Once a day; Duration: 90 days Active Testosterone 10 MG/ACT (2%) 1 pump to skin in the morning to the thighs Transdermal QOD; Duration: 30 days 10/19/2024 Active Adderall 10 MG 1 tablet Orally Q afternoon 08/05/2025 Active metFORMIN HCl 500 MG 1 tablet with a viridiana l Orally BID; Duration: 90 days 10/13/2024 Active Semaglutide 0.6 mg/0.5 mL Semaglutide 0.6 mg/0.5 mL 0.5 mL Subcutaneous Once Weekly; Duration: 30 days 08/09/2024 Active Lasix 20 MG 1 tablet Orally Once a day; Duration: 90 days PRN 04/08/2024 Active Terbinafine HCl 250 MG 1 tablet Orally O nce a day; Duration: 30 days 03/23/2025 Active Potassium Chloride ER 10 MEQ 1 tablet with food Orally Twice a day; Duration: 90 days PRN 04/08/2024 Active Gabapentin 300 MG 1 capsule Orally at HS; Duration: 30 days M48.04 02/09/2025 Active Gabapentin 100 MG 1 capsule Orally in AM and 1 PO at 3pm; Duration: 30 days M48.04 06/01/2025 Active Social History Tobacco Use: Social History [...] Problem Status W/U Status Risk Notes Problem Obstructive sleep apnea syndrome (disorder) (75266791) Obstructive sleep apnea (adult) (pediatric) (G47.33) Active confirmed Problem Primary insomnia (6584264) Primary insomnia (F51.01) Active confirmed Problem Allergic arthritis o f the hand (254205878) Other specified arthritis, right hand (M13.841) Active confirmed Problem Degeneration of lumbar intervertebral disc (41077095) Other intervertebral disc degeneration, lumbar region (M51.36) Active confirmed Problem Fatigue (63362295) Fatigue (R53.83) Active conf irmed Problem Hypertension (64910752) Hypertension (I10) Active confirmed Problem Gastroesophageal reflux disease (217308630) GERD (gastroesophageal reflux disease) (K21.9) Active confirmed Problem Anxiety (39365033) Anxiety (F41.9) Active confi rmed Problem Neck pain (41024500) Neck pain (M54.2) Active c onfirmed Problem Thoracic spinal stenosis (68289587) Thoracic spinal stenosis (M48.04) Active confirmed Problem Arthralgia (04994282) Arthralgia (M25.50) Active confirmed Problem Well adult (729764826) Well adult (Z00.00) Active confirmed Problem Pain in right hand (251973116088046) Right hand pain (M79.641) Active confirmed Problem Abnormal vaginal bleeding (424149209) DUB (dysfunctional uterine bleeding) (N93.8) Active confirmed Problem Narcolepsy (13056848) Narcolepsy (G47.419) Activ e confirmed Problem Plantar fasciitis (736924352) Plantar fasciitis (M72.2) Active confirmed Problem Hypotestosteronemia (9996993674456) Hypotestosteronemia (E29.1) Active confirmed Problem Diverticular disease of colon (102184140) Diverticula of colon (K57.30) Active confirmed Problem Vaginal bleeding (381124639) Vaginal bleeding (N93.9) Active confirmed Problem 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) Active confirmed Problem Visual disturbance (82826148) Vision changes (H53.9) Active confirmed Problem Arthropathy (081252961) Hand arthritis (M12.9) Active confirmed Problem Snoring (44144977) Snorings (R06.83) Active con firmed Problem Irritable bowel syndrome (88105860) Irritable bowel syndrome (IBS) (K58.9) Active confirmed Problem Arthralgia of the pelvic region and thigh (915979173) Hip pain, acute (M25.559) Active confirmed Problem hypercholesterolemia (disorder) (07919018) Hypercholesteremia (E78.00) Active confirmed Problem Prediabetes (773052549) Pre-diabetes (R73.03) Active confirmed Problem Cyst of right ovary (27916906829592612) Ovarian cyst, right (N83.201) Active confirmed Problem Arthritis of right hand (429047486559907) Arthritis of right hand (M19.041) Active confirmed Problem Low testosterone (163731471) Low testosterone (E34.9) Active confirmed Problem COVID-19 (035946260) COVID-19 (U07.1) Active co nfirmed Vital Signs Blood pressure diastolic 80 mm Hg 08/11/2025 Height 67 in 08/11/2025 Blood pressure systolic 122 mm Hg 08/11/2025 Weight 177.0 lbs 08/11/2025 BMI 27.72 kg/m2 08/11/2025 Encounters Encounter Location Date Provider Diagnosis [facility] [address] [place] [address] 10/18/2024 Finesse Hoy Hypertension I10 ; G ERD (gastroesophageal reflux disease) K21.9 ; Low testosterone E34.9 and Arthralgia M25.50 [facility] [address] [place] [address] 01/14/2025 Finesse Hoy Other specified arth ritis, right hand M13.841 ; Arthralgia M25.50 and Thoracic spinal stenosis M48.04 [facility] [address] [place] [address] 03/23/2025 Finesse Hoy Jaw pain R68.84 and Pre-diabetes R73.03 [place] [address] [place] [address] 08/11/2025 Finesse Hoy Hypercholesteremia E 78.00 ; Arthritis of right hand M19.041 ; Low testosterone E34.9 and Well adult Z00.00 [place] [address] [place] [address] 09/02/2024 Finesse Hoy Hypertension I10 and Hypercholesteremia E78.00 [place] [address] [place] [address] 10/06/2024 Finesse Hoy Hypertension I10 ; Pre-diabetes R73.03 and DUB (dysfunctional uterine bleeding) N93.8 [place] [address] [place] [address] 08/11/2025 Finesse Hoy Other specified arth ritis, right hand M13.841 [place] [address] [place] [address] 08/14/2025 Finesse Hoy Well adult Z00.00 ; Jaw pain R68.84 and Other specified arthritis, right hand M13.841 [place] [address] [place] [address] 08/15/2025 Finesse Hoy [place] [address] [place] [address] 08/15/2025 Finesse Hoy [facility] [address] [place] [address] 08/15/2025 Finesse Hoy [facility] [address] [place] [address] 08/22/2025 Finesse Hoy Vaginal bleeding N93 .9 [facility] [address] [place] [address] 03/28/2025 Finesse Hoy Jaw pain R68.84 [facility] [address] [place] [facility] [address] 04/13/2025 Finesse Hoy [facility] [address] [place] [address] 04/27/2025 Finesse Hoy Jaw pain R68.84 and Other specified arthritis, right hand M13.841 [facility] [address] [place] [address] 06/01/2025 Finesse Hoy Jaw pain R68.84 and Other specified arthritis, right hand M13.841 [facility] [address] [place] [facility] [address] 07/04/2025 Finesse Hoy Other specified arth ritis, right hand M13.841 and Jaw pain R68.84 [facility] [address] [place] [address] 08/05/2025 Finesse Hoy Jaw pain R68.84 ; Ot her specified arthritis, right hand M13.841 and Hypertension I10 [facility] [address] [place] [address] 02/08/2025 Finesse Hoy Hypertension I10 and Other specified arthritis, right hand M13.841 [facility] [address] [place] [address] 03/01/2025 Finesse Hoy [facility] [address] [place] [address] 03/07/2025 Finesse Hoy Other specified arth ritis, right hand M13.841 [facility] [address] [place] [address] 03/16/2025 Finesse Hoy Kidney cysts Q61.00 [facility] [address] [place] [place] [address] 03/25/2025 Finesse Hoy Jaw pain R68.84 [facility] [address] [place] [address] 03/28/2025 Finesse Hoy Jaw pain R68.84 [facility] [address] [place] [address] 12/23/2024 Finesse Hoy [facility] [address] [facility] [address] 01/10/2025 Finesse Hoy Hypertension I10 [facility] [address] [facility] [place] [address] 01/17/2025 Finesse Hoy [facility] [address] [facility] [place] [address] 01/18/2025 Finesse Hoy [facility] [address] [facility] [place] [address] 01/27/2025 Finesse Hoy Other specified arth ritis, right hand M13.841 [facility] [address] [facility] [place] [address] 01/30/2025 Finesse Hoy Other specified arth ritis, right hand M13.841 [facility] [address] [facility] [place] [address] 11/10/2024 Finesse Hoy [facility] [address] [facility] [place] [address] 11/12/2024 Finesse Hoy Hypertension I10 [facility] [address] [facility] [place] [address] 11/15/2024 Finesse Hoy [facility] [address] [facility] [place] [address] 11/15/2024 Finesse Hoy [facility] [address] [facility] [place] [address] 11/19/2024 Finesse Hoy Hypertension I10 [facility] [address] [facility] [place] [address] 11/26/2024 Finesse Hoy Hypertension I10 [facility] [address] [facility] [place] [address] 10/18/2024 Finesse Samy [facility] [address] [place] [place] [address] 10/19/2024 Finesse Samy [facility] [address] [place] [address] 10/25/2024 Finesse Hoy [facility] [address] [place] [address] 11/02/2024 Finesse Hoy Hypertension I10 ; F atigue R53.83 and Elevated liver enzymes R74.8 [facility] [address] [place] [address] 11/08/2024 Finesse Hoy Hypertension I10 [facility] [address] [place] [address] 11/10/2024 Finesse Samy [facility] [address] [place] [address] 10/07/2024 Finesse Hoy Elevated liver enzym es R74.8 and Fatigue R53.83 [facility] [address] [place] [place] [address] 10/09/2024 Finesse Hoy Positive occult stoo l blood test R19.5 and Fatigue R53.83 [facility] [address] [place] [place] [address] 10/11/2024 Finesse Yves [facility] [address] [place] [place] [address] 10/13/2024 Finesse Hoy Elevated liver enzym es R74.8 [facility] [address] [place] [address] 10/15/2024 Finesse Hoy [facility] [address] [place] [place] [address] 10/17/2024 Finesse Hoy [facility] [address] [place] [place] [address] 09/06/2024 Finesse Hoy Hematuria R31.9 [facility] [address] [facility] [place] [place] [address] 09/08/2024 Finesse Hoy [facility] [address] [place] [place] [address] 09/14/2024 Finesse Marinelli [facility] [address] [place] [place] [address] 10/06/2024 Finesse Marinelli [facility] [address] [place] [address] 10/06/2024 Finesse Vargasrob [facility] [address] [place] [address] 10/07/2024 Finesse Vargasrob [facility] [address] [facility] [place] [address] 09/03/2024 Finesse Marinelli Assessments Encounter Date Diagnosis (ICD Code) Assessment Notes Treatment Notes Treatment Clinical Notes Section Notes 09/02/2024 Hypertension (ICD-10 - I10) 09/02/2024 Hypercholesteremia (ICD-10 - E78.00) 10/06/2024 Hypertension (ICD-10 - I10) 10/06/2024 DUB (dysfunctional uterine bleeding) (ICD-10 - N93.8) 10/06/2024 Pre-diabetes (ICD-10 - R73.03) 10/18/2024 Hypertension (ICD-10 - I10) 10/18/2024 GERD (gastroesophage al reflux disease) (ICD-10 - K21.9) 09/06/2024 Hematuria (ICD-10 - R31.9) 10/07/2024 Fatigue (ICD-10 - R53.83) 10/07/2024 Elevated liver enzym es (ICD-10 - R74.8) 10/09/2024 Fatigue (ICD-10 - R53.83) 10/09/2024 Positive occult stoo l blood test (ICD-10 - R19.5) 10/13/2024 Elevated liver enzym es (ICD-10 - R74.8) 11/02/2024 Fatigue (ICD-10 - R53.83) 11/02/2024 Hypertension (ICD-10 - I10) 01/14/2025 Arthralgia (ICD-10 - M25.50) 03/23/2025 Jaw pain (ICD-10 - R68.84) 03/23/2025 Pre-diabetes (ICD-10 - R73.03) 11/08/2024 Hypertension (ICD-10 - I10) 11/12/2024 Hypertension (ICD-10 - I10) 11/19/2024 Hypertension (ICD-10 - I10) 11/26/2024 Hypertension (ICD-10 - I10) 01/10/2025 Hypertension (ICD-10 - I10) 01/27/2025 Other specified arthritis, right hand (ICD-10 - M13.841) 01/30/2025 Other specified arthritis, right hand (ICD-10 - M13.841) 01/14/2025 Other specified arthritis, right hand (ICD-10 - M13.841) 08/11/2025 Hypercholesteremia (ICD-10 - E78.00) 08/11/2025 Arthritis of right hand (ICD-10 - M19.041) 02/08/2025 Hypertension (ICD-10 - I10) 03/07/2025 Other specified arthritis, right hand (ICD-10 - M13.841) 03/16/2025 Kidney cysts (ICD-10 - Q61.00) 03/25/2025 Jaw pain (ICD-10 - R68.84) 03/28/2025 Jaw pain (ICD-10 - R68.84) 03/28/2025 Jaw pain (ICD-10 - R68.84) 06/01/2025 Jaw pain (ICD-10 - R68.84) 07/04/2025 Other specified arthritis, right hand (ICD-10 - M13.841) 04/27/2025 Jaw pain (ICD-10 - R68.84) 08/05/2025 Jaw pain (ICD-10 - R68.84) 08/11/2025 Other specified arthritis, right hand (ICD-10 - M13.841) 08/14/2025 Well adult (ICD-10 - Z00.00) 08/22/2025 Vaginal bleeding (ICD-10 - N93.9) 10/18/2024 Low testosterone (ICD-10 - E34.9) 08/14/2025 Jaw pain (ICD-10 - R68.84) 06/01/2025 Other specified arthritis, right hand (ICD-10 - M13.841) 07/04/2025 Jaw pain (ICD-10 - R68.84) 08/05/2025 Other specified arthritis, right hand (ICD-10 - M13.841) 04/27/2025 Other specified arthritis, right hand (ICD-10 - M13.841) 08/11/2025 Low testosterone (ICD-10 - E34.9) 01/14/2025 Thoracic spinal stenosis (ICD-10 - M48.04) 02/08/2025 Other specified arthritis, right hand (ICD-10 - M13.841) 11/02/2024 Elevated liver enzym es (ICD-10 - R74.8) 10/18/2024 Arthralgia (ICD-10 - M25.50) 08/11/2025 Well adult (ICD-10 - Z00.00) 08/05/2025 Hypertension (ICD-10 - I10) 08/14/2025 Other specified arthritis, right hand (ICD-10 - M13.841) Plan Of Treatment Pending Test Test Name Order Date CMP (COMPLETE METABOLIC PANEL) 3 CMP (COMPLETE METABOLIC PANEL) 4 HEMOGLOBIN A1C (GLYCO) 10/06/2024 HEMOGLOBIN A1C (GLYCO) 08/11/2025 IRON, TOTAL 08/11/2025 LIPID PANEL (CHOL/TRIG/HDL/LDL) 08/11/20 25 CBC WITH DIFF 10/06/2024 CBC WITH DIFF 09/10/2023 IGG, IGA and IGM, TOTAL (IMMUNOGLOBULINS ) 08/11/2025 VITAMIN D, 25 LEVEL (TOTAL) 08/11/2025 US Transvaginal Pelvic 08/22/2025 Urinalysis Microscopic 08/11/2025 RHEUMATOID PANEL 10/09/2024 RHEUMATOID [...] 09/02/2024 GLYCOHEMOGLOBIN A1C 08/18/2023 LIPID PROFILE 09/02/2024 PROF 14(COMP METB) 09/02/2024 RHEUMATOID FACTOR 06/13/2023 SED RATE WESTERGREN 01/14/2025 TESTOSTERONE, TOTAL 10/06/2024 TESTOSTERONE, TOTAL 08/11/2025 THYROID PROFILE WITH TSH 09/02/2024 TOTAL [...] Date [employer] [address] [place] [address] [phone] Paige Keating Self - patient is the [...]
--- OUTSIDE RECORDS SUMMARY | 2025-08-23 14:41 | XMS_ITS | Encounter Summary ---
Author Organization [facility] Address [address] [place] [address] Care Team Providers Care Senior Scrum Master Name Role Phone Varun Marinelli MD Primary Care Provider [phone] Tiesha Hughes POSTIE Unavailable [phone] Shasha White DO Unavailable [phone] Encounter Details Date Type Department Care Team (Late st Contact Info) Description 04/08/2024 Clinisync Result Encounter [facility] External Department Unsolicited Jessica Sanchez PA [address] [place] [address] [place] [address] Social History Tobacco Use Types Packs/Day Years [...] Description 09/26/2025 3:10 PM EDT Office Visit [facility] [address] [place] [place] [phone] Delgado Murillo DO [address] [place] [address] documented as of this encounter Procedures Procedure Name Priority Date/Time Associated Diagnosis Comments US PELVIS W/ TRANSVAGINAL 04/08/2024 5:35 PM EDT documented in this encounter Results * US PELVIS W/ TRANSVAGINAL (04/08/2024 5:35 PM EDT) Anatomical Region Laterality Modality Other 04/08/2024 5:35 PM EDT Narrative 04/08/2024 5:38 PM EDT [address] [address] Ultrasound Report Signed Patient: PAIGE KEATING MR#: [id number] : 1975 Acct:[id number] Age/Sex: 48 / F ADM Date: 04/07/24 Loc: US Attending Dr: Jessica Sanchez Ordering Physician: Jessica Sanchez Date of Service: 04/07/24 Procedure(s): US pelvis w/ transvaginal Accession Number(s): [id number] cc: Jessica Sanchez; Varun Marinelli M.D. The [address] [address] Patient Name: PAIGE KEATING MRN: [id number] date: 1975 Sex: F Assigned Patient Location: US Current Patient Location: LAB Accession/Order Number: [id number] Exam Date: 04/07/2024 18:10 Report Date: 04/08/2024 [...] Dictated By: Aman Mckeon M.D. Signed By: 04/08/24 1738 DD/ 1735 TD/TT: Horse Rancher: Procedure Note Radiology, Radiologist, MD - 04/08/2024 The [place] [id number] Ultrasound Report Signed Patient: PAIGE KEATING NMR#: [id number] : 1975Acct:[id number] Age/Sex: 48 / FADM Date: 04/07/24 Loc: US Attending Dr: Jessica Sanchez Ordering Physician: Jessica Sanchez Date of Service: 04/07/24 Procedure(s): US pelvis w/ transvaginal Accession Number(s): [id number] cc: Jessica Sanchez; Varun Marinelli M.D. The [address] [address] Patient Name: PAIGE KEATING MRN: [id number] date: 1975 Sex: F Assigned Patient Location: US Current Patient Location: LAB Accession/Order Number: [id number] Exam Date: 04/07/2024 18:10 Report Date: 04/08/2024 [...] 17:35 Dictated By: Aman Mckeon M.D. Signed By:04/08/241737 DD/ 34 TD/TT: Horse Rancher: us Jessica JUAREZ [facility] Final Result documented in this encounter Visit Diagnoses Not on filedocumented in this encounter Care Teams Senior Scrum Master Relationship Specialty Start Date End Date Varun Marinelli MD PCP - General Family Medicine 06/26/23 Tiesha Hughes NP Nurse Practitioner Neurology 02/03/25 Shasha White DO [address] [place] [address] Referring Physician Neurology 02/03/25 documented as of this encounter
--- OUTSIDE RECORDS SUMMARY | 2025-08-23 14:41 | XMS_ITS | Encounter Summary ---
Author Organization [facility] Address [address] [facility] [place] [address] Care Team Providers Care [employer] Name Role Phone Varun Marinelli MD Primary Care Provider [phone] Tiesha Hughes PRESS PULLER Unavailable [phone] Shasha White DO Unavailable [phone] Encounter Details Date Type Department Care Team (Late st Contact Info) Description 10/07/2023 Clinisync Result Encounter [facility] External Department Unsolicited Aura Murillo DO [address] [place], [place] [id number] Social History Tobacco Use Types Packs/Day Years [...] Description 09/26/2025 3:10 PM EDT Office Visit [facility] [address] [place] [phone] Aura Murillo DO [address] [place], [place] [id number] documented as of this encounter Procedures Procedure Name Priority Date/Time Associated Diagnosis Comments US PELVIS W/ TRANSVAGINAL 10/07/2023 7:23 AM EST documented in this encounter Results * US PELVIS W/ TRANSVAGINAL (10/07/2023 7:23 AM EST) Anatomical Region Laterality Modality Other 10/07/2023 7:23 AM EST Narrative 10/07/2023 7:23 [place] [address] Ultrasound Report Signed Patient: PAIGE KEATING MR#: [id number] : 1975 Acct:[id number] Age/Sex: 48 / F ADM Date: 10/04/23 Loc: US Attending Dr: Aura Murillo D.O. Ordering Physician: Aura Murillo D.O. Date of Service: 10/04/23 Procedure(s): US pelvis w/ transvaginal Accession Number(s): [id number] cc: Aura Murillo D.O.; Varun Marinelli M.D. [place] [address] Patient Name: PAIGE KEATING MRN: [id number] date: 1975 Sex: F Assigned Patient Location: US Current Patient Location: Accession/Order Number: [id number] Exam Date: 10/04/2023 09:07 Report Date: 10/07/2023 [...] M.D. Signed By: 10/07/23724 DD/ 2 TD/TT: Map Maker: Procedure Note Radiology, Radiologist, - 10/07/2023 [place] [address] Ultrasound Report Signed Patient: PAIGE KEATING NMR#: [id number] : 1975Acct:[id number] Age/Sex: 48 / FADM Date: 10/04/23 Loc: US Attending Dr: Aura Murillo D.O. Ordering Physician: Aura Murillo D.O. Date of Service: 10/04/23 Procedure(s): US pelvis w/ transvaginal Accession Number(s): [id number] cc: Aura Murillo D.O.; Varun Marinelli M.D. The [place] [id number] Patient Name: PAIGE KEATING MRN: [id number] date: 1975 Sex: F Assigned Patient Location: US Current Patient Location: Accession/Order Number: [id number] Exam Date: 10/04/2023 09:07 Report Date: 10/07/2023 [...] Sheehan M.D. Signed By:10/07/23724 DD/ 2 TD/TT: Map Maker: Aura Murillo DO [facility] Final Result documented in this encounter Visit Diagnoses Not on filedocumented in this encounter Care Teams [employer] Relationship Specialty Start Date End Date Varun Marinelli MD PCP - General Family Medicine 06/26/23 Tiesha Hughes NP Nurse Practitioner Neurology 02/03/25 Shasha White DO [address] [place] [address] Referring Physician Neurology 02/03/25 documented as of this encounter
--- NOTE | 2025-08-23 14:43 | US_ITS ---
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 No contour deforming mass, shadowing stone or hydronephrosis. 1.8 cm cyst superior pole right kidney. The urinary bladder is partially distended with a volume of 330 ml. No shadowing stone or focal lesion. No significant postvoid residual. US/US renal bladder IMPRESSION: No acute findings.. STABLE APPEARING CYST SUPERIOR POLE RIGHT KIDNEY. Impression dictated by: Seymour Hopper Jr., D.O. 08/23/2025 7:58 PM Dictation Location: [place] [address] Electronically authenticated by: [id number] Y Date: 08/23/2025 19:58
--- OUTSIDE RECORDS SUMMARY | 2025-08-23 14:45 | XMS_ITS | CCD ---
Author Organization [facility] CliniSywv Care Team Providers Care Earth Auger Operator Name Role Phone Nahid Mccoy Unavailable Clarice Hull Unavailable Sami Mccarty Primary Care Physician SISSY, DR ABIGAIL Mc Consulting Unavailable LUL, [...] Attending Unavailable LUL, DR GALLARDO Admitting Unavailable ZIEBER, DR LUZ [...] NON STAFF Primary Care Provider Unavailsalome Fuller DO Dedrick CID Attending Provider Sami Mccarty MD Primary Care Provider [phone] BECCA SCHWARZ Attending Unavailable MIGUEL MCCARTYLAS M Referring Unavailable SAMI MCCARTY M Primary Care Unavailable SAMI MCCARTY M Referring Unavailable SAMI MCCARTY M Primary Care Unavailable SHEELA, MENNATALLAH M Admitting Unavailable SHEELA, MENNATALLAH M Attending Unavailable SAMI MCCARTY M Primary Care Unavailable Marek BURK, Andalyson Rock Attending Unavailable Marek BURK, Andrius Rock Attending Unavailable Marek BURK, Andrius Rock Attending Unavailable Marek BURK, Andalyson Rock Attending Unavailable Sami Mccarty MD Primary Care Provider [phone] Ellen PRODUCTION RECOVERY OPERATOR, Tiesha Unavailable Cindy DO, Shasha Unavailable TIESHA HUGHES Attending Unavailable DELGADO MURILLO Attending Unavailable CAROL WEBB Attending Unavailable GÓMEZFLORIN JUNE Referring Unavailable DELGADO MURILLO Attending Unavailable DELGADO MURILLO Attending Unavailable NON STAFF Primary Care Provider UnavailCarol Pritchett MD Attending Provider Vinayak Baltazar Attending Unavailable Vinayak Baltazar Attending Unavailable Sami Mccarty MD Attending Provider [phone] Sami Mccarty Attending Unavailable Sami Mccarty Admitting [facility] Attending Unavailable [facility], Dedrick Majano Admitting Unavailable NON STAFF Primary Care Unavailable NON STAFF Primary Care Unavailable Carol Vidal Attending Unavailable Carol Vidal Admitting Unavailable Allergies Allergy Classification Reported Allergen(s) Allergy Type Date of Onset Reaction(s) Facility (10 sources) NITROFURANTOIN, MACROCRYSTALS / Nitrofurantoin, Monohydrate; Translations: [nitrofurantoin] Drug Allergy 05-01-20 18 Neck swelling (finding), Swelling [facility] (2 sources) Albuterol Drug Allergy [facility] Comment on above: NEED TO CUT DOWN ADR ENALIN TO PREVENT SEIZURES (3 sources) Bee/Wasp/Ant venom; Translations: [Bee Stings] Allergy to substance Nausea, Swelling [facility] (2 sources) PECANS 1 Food allergy [facility] Comment on above: AIRWAY CONSTRICTION (2 sources) bee venom Drug allergy (disorder) 06-09-20 15 [facility] (2 sources) egg extract Drug Allergy 06-09-20 15 [facility] (4 sources) Nitrofurantoin; Translations: [Macrobid] Drug Allergy 05-02-20 12 [facility] (2 sources) pecan pollen extract Drug Allergy [facility] (4 sources) tree nut, unspecified; Translations: [TREE NUT] Drug allergy (disorder) 06-09-20 15 [facility] (16 sources) Albuterol; Translations: [albuterol] Drug Allergy 07-16-20 17 Other, Other (See Comments) [facility] Repository (12 sources) Honey bee venom Allergy to substance 04-05-20 24 [facility] (12 sources) Nitrofurantoin Drug Allergy 05-01-20 18 Swelling [facility] (12 sources) Nitrofurantoin Drug Allergy 04-05-20 24 [facility] (12 sources) Egg-Derived Products Drug Allergy 04-05-20 24 [facility] (16 sources) Other; Translations: [OTHER] Propensity to adverse reactions 05-13-20 05 [facility] (2 sources) NITROFURANTOIN MONOHYD/M-CRYST; Translations: [NITROFURANTOIN MONOHYD/M-CRYST] Propensity to adverse reactions to drug (disorder) 05-01-20 [facility] Rep[facility] (2 sources) BEE VENOM PROTEIN (HONEY BEE); Translations: [BEE VENOM PROTEIN (HONEY BEE)] Propensity to adverse reactions to drug (disorder) 04-05-20 [facility] (1 source) Egg; Translations: [Eggs] Food allergy (disorder) [facility] Repository (1 source) PECANS; Translations: [PECANS] Food allergy (disorder) [facility] Repository (1 source) Nitrofurantoin Drug Allergy 10-01-20 [facility] Repository Medications Current Medications Medication [...] take 1 tablet by mouth in the nc rning polycarbophil (FIBERCON) 625 mg tablet Take [...] (two) times a day Active lactobacillus acidophilus [id number] unt / pectin 100 mg oral tablet [...] Status: Ordered take 1 capsule by mo [facility] every twenty-four hours Omeprazole 40 MG 1 cap(s) p.o. 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 CARE SPECIALIST CURRENT DRUG THERAPY] Onset: 2 Episodic Other [...] [Unspecified ovarian cyst, right side] Onset: 2 11-30-2022 Episodic Residual codes; unclassified (11 sources) Obstructive [...] Episodic/Chronic Immunizations and screening for infectious disease (2 sources) Encounter for screening for human papillomavirus (HPV); Translations: [Raised antibody titer] Onset: 05-08-2022 Episodic Nonspecific chest pain (1 [...] Test Name Value Interpretation Reference Range Facility Urine Cultureon 08-13-2025 Bacteria identified Cx Nom (U) >100,000 colonies/ml mixed bacterial skin contaminants 2 Days PERFORMED BY: [place] [id number] PATHOLOGIST SERVICE CENTER MANAGER ANDRY WEIR M.D. Normal [facility] Comment on above: Performed By: #### T PO, C3, CHROMATIN, C4, THYGLOB AB, CH50, ROSS #### [facility] , ROSS Antinuclear Antibodieson 02-01-2025 Antinuclear Abs, IFA Negative Normal . [facility] Comment on above: Result Comment: Nega tive <1:80 Borderline 1:80 Positive >1:80 ICAP nomenclature: [id number] For more information about Hep-2 cell patterns use ANApatterns.org, the official website for the International Consensus on Antinuclear Antibody (ROSS) Patterns (ICAP). Performed at: [address] [id number] Collar Shaper Operator: Bowen Mcleod PhD, Phone: [phone] Performed By: #### T PO, C3, CHROMATIN, C4, THYGLOB AB, CH50, ROSS #### [facility] , Alanine aminotransferase [En zymatic activity/volume] in Serum or PlasmaOrdered By: Carol Vidal on 02-01-2025 ALT [Catalytic activity/Vol] Alanine aminotransferase [Enzymatic activity/volume] in Serum or Plasma 7-52 [facility] Albumin [Mass/volume] in Ser um or Plasma by Bromocresol green (BCG) dye binding methoOrdered By: Carol Vidal on 02-01-2025 Albumin BCG dye [Mass/Vol] Albumin [Mass/volume] in Serum or Plasma by Bromocresol green (BCG) dye binding metho 3.5-5.7 [facility] Aldolaseon 02-01-2025 Aldolase 4.0 U/L Normal 3.3-10.3 [facility] Comment on above: Result Comment: Perf ormed at: [facility] [address] [id number] Collar Shaper Operator: Bowen Mcleod PhD, Phone: [phone] PERFORMED BY: [place] [address] PATHOLOGIST SERVICE CENTER MANAGER NADYA FREDERICK M.D. Performed By: #### T PO, C3, CHROMATIN, C4, THYGLOB AB, CH50, ROSS #### [facility] , Alkaline phosphatase [Enzyma tic activity/volume] in Serum or PlasmaOrdered By: Carol Vidal on 02-01-2025 ALP [Catalytic activity/Vol] Alkaline phosphatase [Enzymatic activity/volume] in Serum or Plasma 34-104 [facility] Antithyroglobulin Abon 02-01 Antithyroglobulin Ab <1.0 Normal 0.0-0.9 [facility] Comment on above: Result Comment: Thyr oglobulin Antibody measured by [employer] It should be noted that the presence of thyroglobulin antibodies may not be pathogenic nor diagnostic, especially at very low levels. The assay motor vehicle technician has found that four percent of individuals without evidence of thyroid disease or autoimmunity will have positive TgAb levels up to 4 IU/mL. Performed at: [facility] [address] [id number] Collar Shaper Operator: Bowen Mcleod PhD, Phone: [phone] Performed By: #### T PO, C3, CHROMATIN, C4, THYGLOB AB, CH50, ROSS #### [facility] , Appearance of UrineOrdered B y: Carol Vidal on 02-01-2025 Appearance (U) Urine appearance [facility] Aspartate aminotransferase [ Enzymatic activity/volume] in Serum or PlasmaOrdered By: Carol Vidal on 02-01-2025 AST [Catalytic activity/Vol] Aspartate aminotransferase [Enzymatic activity/volume] in Serum or Plasma 13-39 [facility] Bacteria [Presence] in Urine by AutomatedOrdered By: Carol Vidal on 02-01-2025 Bacteria Auto Ql (U) Bacteria [Presence] in Urine by Automated None Seen [facility] Basophils Auto (Bld) [#/Vol] Ordered By: Carol Vidal on 02-01-2025 Basophils (Bld) [#/Vol] Automated basophil count 0.0-0.2 [facility] Basophils/100 WBC Auto (Bld) Ordered By: Carol Vidal on 02-01-2025 Basophils/100 WBC (Bld) Automated basophil % . [facility] Bilirubin Test strip Ql (U)O rdered By: Carol Vidal on 02-01-2025 Bilirubin Ql (U) Bilirubin.total [Pre sence] in Urine by Test strip Negative [facility] Bilirubin.total [Mass/volume ] in Serum or PlasmaOrdered By: Carol Vidal on 02-01-2025 Bilirubin [Mass/Vol] Bilirubin.total [Mass/volume] in Serum or Plasma High 0.3-1.0 [facility] Comment on above: Samples from patient s who have taken Naproxen have shown spurious elevation in Total Bilirubin levels. A metabolite of Naproxen, O-desmethylnaproxen, has been shown to interfere with the Yvan-Shere method for measuring Total Bilirubin. C reactive protein [Mass/vol ume] in Serum or PlasmaOrdered By: Carol Vidal on 02-01-2025 CRP [Mass/Vol] C reactive protein [Mass/volume] in Serum or Plasma 0.0-0.5 [facility] C-Reactive Proteinon 025 CRP [Mass/Vol] mg/L Normal 0.0-0.5 [facility] Comment on above: Performed By: #### T PO, C3, CHROMATIN, C4, THYGLOB AB, CH50, ROSS #### [facility] , Calcium [Mass/volume] in Ser um or PlasmaOrdered By: Carol Vidal on 02-01-2025 Calcium [Mass/Vol] Calcium [Mass/volume ] in Serum or Plasma 8.6-10.3 [facility] Carbon dioxide, total [Moles /volume] in Serum or PlasmaOrdered By: Carol Vidal on 02-01-2025 CO2 [Moles/Vol] Carbon dioxide, tota l [Moles/volume] in Serum or Plasma 21.0-31.0 [facility] Chloride [Moles/volume] in S altagracia or PlasmaOrdered By: Carol Vidal on 02-01-2025 Chloride [Moles/Vol] Chloride [Moles/vol ume] in Serum or Plasma 98-107 [facility] Chromatin Antibodyon 025 Chromatin Antibody <0.2 Normal 0.0-0.9 [facility] Comment on above: Result Comment: Perf ormed at: - [facility] [address] [id number] Collar Shaper Operator: Bowen Mcleod PhD, Phone: [phone] PERFORMED BY: [address] [place] [id number] PATHOLOGIST SERVICE CENTER MANAGER NADYA FREDERICK M.D. Performed By: #### T PO, C3, CHROMATIN, C4, THYGLOB AB, CH50, ROSS #### [facility] , Coagulation Profileon 2024 aPTT Coag (Bld) [Time] 29.2 s Normal 25.1-36.5 [facility] Comment on above: Result Comment: A he matocrit value greater than 55% may lead to inaccurate results in coagulation testing. Patients having hematocrit values >55% require a special collection tube for coagulation studies. Please contact the laboratory at [phone] for redraw instructions. PERFORMED BY: [address] [place] [address] PATHOLOGIST SERVICE CENTER MANAGER NADYA FREDERICK M.D. Performed By: #### T PO, C3, CHROMATIN, C4, THYGLOB AB, CH50, ROSS #### [facility] , INR Coag (PPP) [Relative time] 0.9 {INR} Normal [facility] Comment on above: Result Comment: [...] (PPP) [Time] 10.8 s Normal 9.0-12.9 [facility] Comment on above: Result Comment: A he matocrit value greater than 55% may lead to inaccurate results in coagulation testing. Patients having hematocrit values >55% require a special collection tube for coagulation studies. Please contact the laboratory at [phone] for redraw instructions. Performed By: #### T PO, C3, CHROMATIN, C4, THYGLOB AB, CH50, RSOS #### [facility] , Color Auto (U)Ordered By: Anna Vidal on 02-01-2025 Color (U) Color of Urine by Auto Yellow [facility] Complement C3on 02-01-2025 Complement C3 135 mg/dL Normal 82-167 [facility] Comment on above: Result Comment: Perf ormed at: - [facility] [address] [id number] Collar Shaper Operator: Bowen Mcleod PhD, Phone: [phone] Performed By: #### T PO, C3, CHROMATIN, C4, THYGLOB AB, CH50, ROSS #### [facility] , Complement C4on 02-01-2025 Complement C4 21 mg/dL Normal 12-38 [facility] Comment on above: Performed By: #### T PO, C3, CHROMATIN, C4, THYGLOB AB, CH50, ROSS #### [facility] , Complement Total (CH50)on Complement Total (CH50) 57 Normal >41 [facility] Comment on above: Result Comment: [...] determine out of range values. Performed at: [address] [id number] Collar Shaper Operator: Bowen Mcleod PhD, Phone: [phone] PERFORMED BY: [place] [id number] PATHOLOGIST SERVICE CENTER MANAGER NADYA FREDERICK M.D. Performed By: #### T PO, C3, CHROMATIN, C4, THYGLOB AB, CH50, ROSS #### [facility] , Complete Blood Count Auto Di ffon 02-01-2025 Basophils (Bld) [#/Vol] 0.0 10*3/uL Normal 0.0-0.2 [facility] Comment on above: Performed By: #### T PO, C3, CHROMATIN, C4, THYGLOB AB, CH50, ROSS #### [facility] , Basophils/100 WBC (Bld) 0.3 % Normal . [facility] Comment on above: Performed By: #### T PO, C3, CHROMATIN, C4, THYGLOB AB, CH50, ROSS #### [facility] , Eosinophils (Bld) [#/Vol] 0.1 10*3/uL Normal 0.0-0.45 [facility] Comment on above: Performed By: #### T PO, C3, CHROMATIN, C4, THYGLOB AB, CH50, ROSS #### [facility] , Eosinophils/100 WBC (Bld) 1.3 % Normal . [facility] Comment on above: Performed By: #### T PO, C3, CHROMATIN, C4, THYGLOB AB, CH50, ROSS #### [facility] , Erythrocyte distribution width (RBC) [Ratio] 12.5 % Normal 11.9-15.3 [facility] Comment on above: Performed By: #### T PO, C3, CHROMATIN, C4, THYGLOB AB, CH50, ROSS #### [facility] , Hematocrit (Bld) [Volume fraction] 39.2 % Normal 34.0-46.4 [facility] Comment on above: Performed By: #### T PO, C3, CHROMATIN, C4, THYGLOB AB, CH50, ROSS #### [facility] , Hemoglobin (Bld) [Mass/Vol] 13.5 g/dL Normal 11.8-15.4 [facility] Comment on above: Performed By: #### T PO, C3, CHROMATIN, C4, THYGLOB AB, CH50, ROSS #### [facility] , Lymphocytes (Bld) [#/Vol] 3.6 10*3/uL Normal 1.00-4.8 [facility] Comment on above: Performed By: #### T PO, C3, CHROMATIN, C4, THYGLOB AB, CH50, ROSS #### [facility] , Lymphocytes/100 WBC (Bld) 50.6 % Normal . [facility] Comment on above: Performed By: #### T PO, C3, CHROMATIN, C4, THYGLOB AB, CH50, ROSS #### [facility] , MCH (RBC) [Entitic mass] 31.1 pg Normal 24.7-34.3 [facility] Comment on above: Performed By: #### T PO, C3, CHROMATIN, C4, THYGLOB AB, CH50, ROSS #### [facility] , MCV (RBC) [Entitic vol] 90.2 fL Normal 80-100 [facility] Comment on above: Performed By: #### T PO, C3, CHROMATIN, C4, THYGLOB AB, CH50, ROSS #### [facility] , Mean Corpuscular HGB Conc 34.5 g/dL Normal 32.0-35.0 [facility] Comment on above: Performed By: #### T PO, C3, CHROMATIN, C4, THYGLOB AB, CH50, ROSS #### [facility] , Monocytes (Bld) [#/Vol] 0.4 10*3/uL Normal 0.0-0.8 [facility] Comment on above: Performed By: #### T PO, C3, CHROMATIN, C4, THYGLOB AB, CH50, ROSS #### [facility] , Monocytes/100 WBC (Bld) 6.1 % Normal . [facility] Comment on above: Performed By: #### T PO, C3, CHROMATIN, C4, THYGLOB AB, CH50, ROSS #### [facility] , Neutrophils (Bld) [#/Vol] 3.0 10*3/uL Normal 1.8-7.7 [facility] Comment on above: Performed By: #### T PO, C3, CHROMATIN, C4, THYGLOB AB, CH50, ROSS #### [facility] , Neutrophils/100 WBC (Bld) 41.7 % Normal . [facility] Comment on above: Performed By: #### T PO, C3, CHROMATIN, C4, THYGLOB AB, CH50, ROSS #### [facility] , NRBC% 0.0 /100{WBC} Normal 0-0.5 [facility] Comment on above: Performed By: #### T PO, C3, CHROMATIN, C4, THYGLOB AB, CH50, ROSS #### [facility] , Platelet mean volume (Bld) [Entitic vol] 9.1 fL Normal 6.3-10.7 [facility] Comment on above: Performed By: #### T PO, C3, CHROMATIN, C4, THYGLOB AB, CH50, ROSS #### [facility] , Platelets (Bld) [#/Vol] 251 10*3/uL Normal 150-450 [facility] Comment on above: Performed By: #### T PO, C3, CHROMATIN, C4, THYGLOB AB, CH50, ROSS #### [facility] , RBC (Bld) [#/Vol] 4.34 10*6/uL Normal 3.60-5.00 [facility] Comment on above: Performed By: #### T PO, C3, CHROMATIN, C4, THYGLOB AB, CH50, ROSS #### [facility] , WBC (Bld) [#/Vol] 7.2 10*3/uL Normal 3.8-11.6 [facility] Comment on above: Performed By: #### T PO, C3, CHROMATIN, C4, THYGLOB AB, CH50, ROSS #### [facility] , Comprehensive Metabolic Pane lilly 02-01-2025 Albumin [Mass/Vol] 4.7 g/dL Normal 3.5-5.7 [facility] Comment on above: Performed By: #### T PO, C3, CHROMATIN, C4, THYGLOB AB, CH50, ROSS #### [facility] , Albumin/Globulin [Mass ratio] 2.0 {ratio} Normal [facility] Comment on above: Performed By: #### T PO, C3, CHROMATIN, C4, THYGLOB AB, CH50, ROSS #### [facility] , ALP [Catalytic activity/Vol] 54 U/L Normal 34-104 [facility] Comment on above: Performed By: #### T PO, C3, CHROMATIN, C4, THYGLOB AB, CH50, ROSS #### [facility] , ALT [Catalytic activity/Vol] 14 U/L Normal 7-52 [facility] Comment on above: Performed By: #### T PO, C3, CHROMATIN, C4, THYGLOB AB, CH50, ROSS #### [facility] , Anion gap [Moles/Vol] 9.2 mmol/L Normal 6.0-15.0 [facility] Comment on above: Performed By: #### T PO, C3, CHROMATIN, C4, THYGLOB AB, CH50, ROSS #### [facility] , AST [Catalytic activity/Vol] 15 U/L Normal 13-39 [facility] Comment on above: Performed By: #### T PO, C3, CHROMATIN, C4, THYGLOB AB, CH50, ROSS #### [facility] , Bilirubin [Mass/Vol] 1.3 mg/dL High 0.3-1.0 [facility] Comment on above: Result Comment: Samp les from patients who have taken Naproxen have shown spurious elevation in Total Bilirubin levels. A metabolite of Naproxen, O-desmethylnaproxen, has been shown to interfere with the Jendrassik-Grof method for measuring Total Bilirubin. Performed By: #### T PO, C3, CHROMATIN, C4, THYGLOB AB, CH50, ROSS #### [facility] , Calcium [Mass/Vol] 9.5 mg/dL Normal 8.6-10.3 [facility] Comment on above: Performed By: #### T PO, C3, CHROMATIN, C4, THYGLOB AB, CH50, ROSS #### [facility] , Chloride [Moles/Vol] 104 mmol/L Normal 98-107 [facility] Comment on above: Performed By: #### T PO, C3, CHROMATIN, C4, THYGLOB AB, CH50, ROSS #### [facility] , CO2 [Moles/Vol] 29.5 mmol/L Normal 21.0-31.0 [facility] Comment on above: Performed By: #### T PO, C3, CHROMATIN, C4, THYGLOB AB, CH50, ROSS #### [facility] , Creatinine [Mass/Vol] 0.73 mg/dL Normal 0.60-1.20 [facility] Comment on above: Performed By: #### T PO, C3, CHROMATIN, C4, THYGLOB AB, CH50, ROSS #### [facility] , GFR/1.73 sq M.predicted MDRD (S/P/Bld) [Vol rate/Area] mL/min/{1.73_m2} Normal [facility] Comment on above: Performed By: #### T PO, C3, CHROMATIN, C4, THYGLOB AB, CH50, ROSS #### [facility] , Globulin (S) [Mass/Vol] 2.3 g/dL Normal [facility] Comment on above: Performed By: #### T PO, C3, CHROMATIN, C4, THYGLOB AB, CH50, ROSS #### [facility] , Glucose [Mass/Vol] 79 mg/dL Normal 70-100 [facility] Comment on above: Result Comment: [place] Glucose Reference Range is dependent on time and content of last meal. Glucose of more than 200 mg/dL in a nonstressed, ambulatory subject supports the diagnosis of Diabetes Mellitus. ADA recommended reference range Performed By: #### T PO, C3, CHROMATIN, C4, THYGLOB AB, CH50, ROSS #### [facility] , Potassium [Moles/Vol] 3.7 mmol/L Normal 3.5-5.1 [facility] Comment on above: Performed By: #### T PO, C3, CHROMATIN, C4, THYGLOB AB, CH50, ROSS #### [facility] , Protein [Mass/Vol] 7.0 g/dL Normal 6.4-8.9 [facility] Comment on above: Performed By: #### T PO, C3, CHROMATIN, C4, THYGLOB AB, CH50, ROSS #### [facility] , Sodium [Moles/Vol] 139 mmol/L Normal 136-145 [facility] Comment on above: Performed By: #### T PO, C3, CHROMATIN, C4, THYGLOB AB, CH50, ROSS #### [facility] , Urea nitrogen [Mass/Vol] 9 mg/dL Normal 7-25 [facility] Comment on above: Performed By: #### T PO, C3, CHROMATIN, C4, THYGLOB AB, CH50, ROSS #### [facility] , Creatine Kinaseon 02-01-2025 CK [Catalytic activity/Vol] 77 U/L Normal 30-223 [facility] Comment on above: Result Comment: PERF ORMED BY: [facility] [place] [address] PATHOLOGIST SERVICE CENTER MANAGER NADYA FREDERICK M.D. Performed By: #### T PO, C3, CHROMATIN, C4, THYGLOB AB, CH50, ROSS #### [facility] , Creatine kinase [Enzymatic a ctivity/volume] in Serum or PlasmaOrdered By: Carol Vidal on 02-01-2025 CK [Catalytic activity/Vol] Creatine kinase [Enzymatic activity/volume] in Serum or Plasma 30-223 [facility] Creatinine [Mass/volume] in Serum or PlasmaOrdered By: Carol Vidal on 02-01-2025 Creatinine [Mass/Vol] Creatinine [Mass/v olume] in Serum or Plasma 0.60-1.20 [facility] Dipstick and Microscopicon 0 02-01-2025 Appearance (U) Clear Normal Clear [facility] Comment on above: Order Comment: Name Collection Type:: Clean-Voided Midstream Performed By: #### T PO, C3, CHROMATIN, C4, THYGLOB AB, CH50, ROSS #### [facility] , Bacteria,Urine None Seen Normal None Seen [facility] Comment on above: Order Comment: Name Collection Type:: Clean-Voided Midstream Performed By: #### T PO, C3, CHROMATIN, C4, THYGLOB AB, CH50, ROSS #### [facility] , Bilirubin,Urine Negative Normal Negative [facility] Comment on above: Order Comment: Name Collection Type:: Clean-Voided Midstream Performed By: #### T PO, C3, CHROMATIN, C4, THYGLOB AB, CH50, ROSS #### [facility] , Color (U) Yellow Normal Yellow [facility] Comment on above: Order Comment: Name Collection Type:: Clean-Voided Midstream Performed By: #### T PO, C3, CHROMATIN, C4, THYGLOB AB, CH50, ROSS #### [facility] , Glucose Ql (U) Normal Normal Normal [facility] Comment on above: Order Comment: Name Collection Type:: Clean-Voided Midstream Performed By: #### T PO, C3, CHROMATIN, C4, THYGLOB AB, CH50, ROSS #### [facility] , Hyaline Casts,Urine None Normal 0-8 [facility] Comment on above: Order Comment: Name Collection Type:: Clean-Voided Midstream Performed By: #### T PO, C3, CHROMATIN, C4, THYGLOB AB, CH50, ROSS #### [facility] , Ketones Ql (U) Negative Normal Negative [facility] Comment on above: Order Comment: Name Collection Type:: Clean-Voided Midstream Performed By: #### T PO, C3, CHROMATIN, C4, THYGLOB AB, CH50, ROSS #### [facility] , Leukocyte esterase Test strip Ql (U) Negative Normal Negative [facility] Comment on above: Order Comment: Name Collection Type:: Clean-Voided Midstream Performed By: #### T PO, C3, CHROMATIN, C4, THYGLOB AB, CH50, ROSS #### [facility] , Mucus,Urine 3+ Critically abnormal [facility] Comment on above: Order Comment: Name Collection Type:: Clean-Voided Midstream Result Comment: PERF ORMED BY: [facility] [place] [address] PATHOLOGIST SERVICE CENTER MANAGER NADYA FREDERICK M.D. Performed By: #### T PO, C3, CHROMATIN, C4, THYGLOB AB, CH50, ROSS #### [facility] , Nitrite,Urine Negative Normal Negative [facility] Comment on above: Order Comment: Name Collection Type:: Clean-Voided Midstream Performed By: #### T PO, C3, CHROMATIN, C4, THYGLOB AB, CH50, ROSS #### [facility] , Occult Blood,Urine Negative Normal Negative [facility] Comment on above: Order Comment: Name Collection Type:: Clean-Voided Midstream Performed By: #### T PO, C3, CHROMATIN, C4, THYGLOB AB, CH50, ROSS #### [facility] , pH (U) 6.0 [pH] Normal 5.0-9.0 [facility] Comment on above: Order Comment: Name Collection Type:: Clean-Voided Midstream Performed By: #### T PO, C3, CHROMATIN, C4, THYGLOB AB, CH50, ROSS #### [facility] , Protein,Urine Trace High Negative [facility] Comment on above: Order Comment: Name Collection Type:: Clean-Voided Midstream Performed By: #### T PO, C3, CHROMATIN, C4, THYGLOB AB, CH50, ROSS #### [facility] , RBC,Urine 1-2 Normal 0-4 [facility] Comment on above: Order Comment: Name Collection Type:: Clean-Voided Midstream Performed By: #### T PO, C3, CHROMATIN, C4, THYGLOB AB, CH50, ROSS #### [facility] , Specificy [place],Urine 1.021 Normal 1.001-1.03 0 [facility] Comment on above: Order Comment: Name Collection Type:: Clean-Voided Midstream Performed By: #### T PO, C3, CHROMATIN, C4, THYGLOB AB, CH50, ROSS #### [facility] , Squamous Epithelial Cell,Urine 1-2 Normal 0-2 [facility] Comment on above: Order Comment: Name Collection Type:: Clean-Voided Midstream Performed By: #### T PO, C3, CHROMATIN, C4, THYGLOB AB, CH50, ROSS #### [facility] , Urobilinogen,Urine Normal Normal Normal [facility] Comment on above: Order Comment: Name Collection Type:: Clean-Voided Midstream Performed By: #### T PO, C3, CHROMATIN, C4, THYGLOB AB, CH50, ROSS #### [facility] , WBC,Urine 3-4 Normal 0-4 [facility] Comment on above: Order Comment: Name Collection Type:: Clean-Voided Midstream Performed By: #### T PO, C3, CHROMATIN, C4, THYGLOB AB, CH50, ROSS #### [facility] , Eosinophils Auto (Bld) [#/Vo l]Ordered By: Carol Vidal on 02-01-2025 Eosinophils (Bld) [#/Vol] Automated eosinophil count 0.0-0.45 [facility] Eosinophils/100 WBC Auto (Bl d)Ordered By: Carol Vidal on 02-01-2025 Eosinophils/100 WBC (Bld) Automated eosinophil % . [facility] Epithelial cells.squamous [# /area] in Urine sediment by Automated countOrdered By: Carol Vidal on 02-01-2025 Epithelial cells.squamous Auto (Urine sed) [#/Area] Epithelial cells.squamous [#/area] in Urine sediment by Automated count 0-2 [facility] Erythrocyte Sedimentation Ra doroteo 02-01-2025 ESR (Bld) [Velocity] 8 mm/h Normal 0-19 [facility] Comment on above: Result Comment: PERF ORMED BY: [facility] [address] [place] [address] PATHOLOGIST SERVICE CENTER MANAGER NADYA FREDERICK M.D. Performed By: #### T PO, C3, CHROMATIN, C4, THYGLOB AB, CH50, ROSS #### [facility] , Erythrocyte distribution wid th Auto (RBC) [Ratio]Ordered By: Carol Vidal on 02-01-2025 Erythrocyte distribution width (RBC) [Ratio] Erythrocyte distribution width [Ratio] by Automated count 11.9-15.3 [facility] Erythrocyte sedimentation ra te by Photometric methodOrdered By: Carol Vidal on 02-01-2025 ESR Photometric method (Bld) [Velocity] Erythrocyte sedimentation rate by Photometric method 0-19 [facility] Erythrocytes [#/area] in Uri ne sediment by Automated countOrdered By: Carol Vidal on 02-01-2025 RBC Auto (Urine sed) [#/Area] Erythrocytes [#/area] in Urine sediment by Automated count 0-4 [facility] Free T4 (Free Thyroxine)on 0 02-01-2025 Free T4 [Mass/Vol] 0.96 ng/dL Normal 0.61-1.12 [facility] Comment on above: Performed By: #### T PO, C3, CHROMATIN, C4, THYGLOB AB, CH50, ROSS #### [facility] , Globulin Calc (S) [Mass/Vol] Ordered By: Carol Vidal on 02-01-2025 Globulin (S) [Mass/Vol] Serum globulin measurement by calculation (mass/volume) [facility] Glucose [Mass/volume] in Ser um or PlasmaOrdered By: Carol Vidal on 02-01-2025 Glucose [Mass/Vol] Glucose [Mass/volume ] in Serum or Plasma 70-100 [facility] Comment on above: ADA [...] [Mass/volume] in Urine by Test strip Normal [facility] Hematocrit Auto (Bld) [Volum e fraction]Ordered By: Carol Vidal on 02-01-2025 Hematocrit (Bld) [Volume fraction] Hematocrit [Volume Fraction] of Blood by Automated count 34.0-46.4 [facility] Hemoglobin Test strip Ql (U) Ordered By: Carol Vidal on 02-01-2025 Hemoglobin Ql (U) Hemoglobin [Presence ] in Urine by Test strip Negative [facility] Hemoglobin [Mass/volume] in BloodOrdered By: Carol Vidal on 02-01-2025 Hemoglobin (Bld) [Mass/Vol] Hemoglobin [Mass/volume] in Blood 11.8-15.4 [facility] Hyaline casts [#/area] in Ur ine sediment by Automated countOrdered By: Carol Vidal on 02-01-2025 Hyaline casts Auto (Urine sed) [#/Area] Hyaline casts [#/area] in Urine sediment by Automated count 0-8 [facility] INR in Platelet poor plasma by Coagulation assayOrdered By: Carol Vidal on 02-01-2025 INR Coag (PPP) [Relative time] INR in Platelet poor plasma by Coagulation assay [facility] Comment on above: INR Therapeutic Rang e [...] Immunofixation, (ASHLEY), Urine Comment Normal . [facility] Comment on above: Result Comment: No m onoclonality detected. Performed at: [facility] [address] [id number] Collar Shaper Operator: Bowen Mcleod PhD, Phone: [phone] Performed By: #### T PO, C3, CHROMATIN, C4, THYGLOB AB, CH50, ROSS #### [facility] , Immunofixation,Serumon 02-01 Immunofixation, Serum Comment Normal . [facility] Comment on above: Result Comment: No m onoclonality detected. Performed By: #### T PO, C3, CHROMATIN, C4, THYGLOB AB, CH50, ROSS #### [facility] , Immunoglobulin A, Serum 201 mg/dL Normal 87-352 [facility] Comment on above: Performed By: #### T PO, C3, CHROMATIN, C4, THYGLOB AB, CH50, ROSS #### [facility] , Immunoglobulin G 983 mg/dL Normal 586-1602 [facility] Comment on above: Performed By: #### T PO, C3, CHROMATIN, C4, THYGLOB AB, CH50, ROSS #### [facility] , Immunoglobulin M, Serum 75 mg/dL Normal 26-217 [facility] Comment on above: Result Comment: Perf ormed at: - [facility] [address] [id number] Collar Shaper Operator: Bowen Mcleod PhD, Phone: [phone] Performed By: #### T PO, C3, CHROMATIN, C4, THYGLOB AB, CH50, ROSS #### [facility] , Ketones Test strip Ql (U)Ord ered By: Carol Vidal on 02-01-2025 Ketones Ql (U) Ketones [Presence] i n Urine by Test strip Negative [facility] Leukocyte esterase [Presence ] in Urine by Test stripOrdered By: Carol Vidal on 02-01-2025 Leukocyte esterase Test strip Ql (U) Leukocyte esterase [Presence] in Urine by Test strip Negative [facility] Leukocytes [#/area] in Urine sediment by Automated countOrdered By: Carol Vidal on 02-01-2025 WBC Auto (Urine sed) [#/Area] Leukocytes [#/area] in Urine sediment by Automated count 0-4 [facility] Leukocytes [#/volume] correc radha for nucleated erythrocytes in Blood by Automated counOrdered By: Carol Vidal on 02-01-2025 WBC corrected for nucl RBC Auto (Bld) [#/Vol] Leukocytes [#/volume] corrected for nucleated erythrocytes in Blood by Automated coun 3.8-11.6 [facility] Lupus Anticoagulant Compon 0 02-01-2025 Dilute Prothrombin Time (dPt) 38.3 Normal 0.0-47.6 [facility] Comment on above: Performed By: #### L UPANTCOAG #### [facility] , dPT Confirm Ratio 0.76 Normal 0.00-1.34 [facility] Comment on above: Performed By: #### L UPANTCOAG #### [facility] , DRVVT Lupus 34.4 Normal 0.0-47.0 [facility] Comment on above: Performed By: #### L UPANTCOAG #### [facility] , Interpretation Comment: Normal . [facility] Comment on above: Result Comment: No l upus anticoagulant was detected. Performed at: - [facility] [id number] Collar Shaper Operator: Raegan Gong MD, Phone: [phone] PERFORMED BY: [facility] [address] [place] [address] PATHOLOGIST SERVICE CENTER MANAGER NADYA FREDERICK M.D. Performed By: #### L UPANTCOAG #### [facility] , PTT-LA 42.7 Normal 0.0-43.5 [facility] Comment on above: Performed By: #### L UPANTCOAG #### [facility] , Thrombin Time 14.6 Normal 0.0-23.0 [facility] Comment on above: Performed By: #### L UPANTCOAG #### [facility] , Lymphocytes Auto (Bld) [#/Vo l]Ordered By: Carol Vidal on 02-01-2025 Lymphocytes (Bld) [#/Vol] Lymphocytes [#/volume] in Blood by Automated count 1.00-4.8 [facility] Lymphocytes/100 WBC Auto (Bl d)Ordered By: Carol Vidal on 02-01-2025 Lymphocytes/100 WBC (Bld) Lymphocytes/100 leukocytes in Blood by Automated count . [facility] MCH Auto (RBC) [Entitic mass ]Ordered By: Carol Vidal on 02-01-2025 MCH (RBC) [Entitic mass] MCH [Entitic mass] by Automated count 24.7-34.3 [facility] MCHC Auto (RBC) [Mass/Vol]Or dered By: Carol Vidal on 02-01-2025 MCHC (RBC) [Mass/Vol] MCHC [Mass/volume] by Automated count 32.0-35.0 [facility] MCV Auto (RBC) [Entitic vol] Ordered By: Carol Vidal on 02-01-2025 MCV (RBC) [Entitic vol] MCV [Entitic volume] by Automated count 80-100 [facility] Monocytes Auto (Bld) [#/Vol] Ordered By: Carol Vidal on 02-01-2025 Monocytes (Bld) [#/Vol] Automated blood monocyte count 0.0-0.8 [facility] Monocytes/100 WBC Auto (Bld) Ordered By: Carol Vidal on 02-01-2025 Monocytes/100 WBC (Bld) Automated monocyte % . [facility] Mucus [Presence] in Urine by AutomatedOrdered By: Carol Vidal on 02-01-2025 Mucus Auto Ql (U) Mucus [Presence] in Urine by Automated Abnormal [facility] Neutrophils Auto (Bld) [#/Vo l]Ordered By: Carol Vidal on 02-01-2025 Neutrophils (Bld) [#/Vol] Neutrophils [#/volume] in Blood by Automated count 1.8-7.7 [facility] Neutrophils/100 WBC Auto (Bl d)Ordered By: Carol Vidal on 02-01-2025 Neutrophils/100 WBC (Bld) Automated neutrophil % . [facility] Nitrite Test strip Ql (U)Ord ered By: Carol Vidal on 02-01-2025 Nitrite Ql (U) Nitrite [Presence] i n Urine by Test strip Negative [facility] No Panel InformationOrdered By: Carol Vidal on 02-01-2025 Estimated GFR (CKD-EPI) > 60.0 mL/Min [facility] Creatinine Clearance (Chem N/A [facility] Nucleated erythrocytes [Pres ence] in Blood by Automated countOrdered By: Carol Vidal on 02-01-2025 Nucleated RBC Auto Ql (Bld) Nucleated erythrocytes [Presence] in Blood by Automated count 0-0.5 [facility] Platelet mean volume Auto (B ld) [Entitic vol]Ordered By: Carol Vidal on 02-01-2025 Platelet mean volume (Bld) [Entitic vol] Platelet mean volume [Entitic volume] in Blood by Automated count 6.3-10.7 [facility] Platelets Auto (Bld) [#/Vol] Ordered By: Carol Vidal on 02-01-2025 Platelets (Bld) [#/Vol] Platelets [#/volume] in Blood by Automated count 150-450 [facility] Potassium [Moles/volume] in Serum or PlasmaOrdered By: Carol Vidal on 02-01-2025 Potassium [Moles/Vol] Potassium [Moles/v olume] in Serum or Plasma 3.5-5.1 [facility] Protein Electro, Random Urin michael 02-01-2025 Albumin, Urine 41.6 % Normal . [facility] Comment on above: Performed By: #### T PO, C3, CHROMATIN, C4, THYGLOB AB, CH50, ROSS #### [facility] , Snixg-7-Fwvsoern, Urine 1.3 % Normal . [facility] Comment on above: Performed By: #### T PO, C3, CHROMATIN, C4, THYGLOB AB, CH50, ROSS #### [facility] , Gsdhv-2-Fffpuwec, Urine 22.3 % Normal . [facility] Comment on above: Performed By: #### T PO, C3, CHROMATIN, C4, THYGLOB AB, CH50, ROSS #### [facility] , Beta Globulin, Urine 24.6 % Normal . [facility] Comment on above: Performed By: #### T PO, C3, CHROMATIN, C4, THYGLOB AB, CH50, ROSS #### [facility] , Gamma Globulin, Urine 10.1 % Normal . [facility] Comment on above: Performed By: #### T PO, C3, CHROMATIN, C4, THYGLOB AB, CH50, ROSS #### [facility] , M-Saleem % Not Observed Normal Not Observed [facility] Comment on above: Performed By: #### T PO, C3, CHROMATIN, C4, THYGLOB AB, CH50, ROSS #### [facility] , Please Note: Comment Normal . [facility] Comment on above: Result Comment: Prot ein electrophoresis scan will follow via computer, mail, or endless track vehicle mechanic delivery. PERFORMED BY: [facility] [place] [address] PATHOLOGIST SERVICE CENTER MANAGER NADYA FREDERICK M.D. Performed By: #### T PO, C3, CHROMATIN, C4, THYGLOB AB, CH50, ROSS #### [facility] , Protein (U) [Mass/Vol] 23.9 mg/dL Normal Not Estab. Th e [facility] Comment on above: Performed By: #### T PO, C3, CHROMATIN, C4, THYGLOB AB, CH50, ROSS #### [facility] , Protein Electrophoresis, Ser umon 02-01-2025 Albumin [Mass/Vol] 4.2 g/dL Normal 2.9-4.4 [facility] Comment on above: Performed By: #### T PO, C3, CHROMATIN, C4, THYGLOB AB, CH50, ROSS #### [facility] , Albumin/Globulin [Mass ratio] 1.6 {ratio} Normal 0.7-1.7 [facility] Comment on above: Performed By: #### T PO, C3, CHROMATIN, C4, THYGLOB AB, CH50, ROSS #### [facility] , Zaxrh-6-Hbcuffkg 0.2 g/dL Normal 0.0-0.4 [facility] Comment on above: Performed By: #### T PO, C3, CHROMATIN, C4, THYGLOB AB, CH50, ROSS #### [facility] , Cwxqs-0-Lnnxmexw 0.6 g/dL Normal 0.4-1.0 [facility] Comment on above: Performed By: #### T PO, C3, CHROMATIN, C4, THYGLOB AB, CH50, ROSS #### [facility] , Beta Globulin 1.0 g/dL Normal 0.7-1.3 [facility] Comment on above: Performed By: #### T PO, C3, CHROMATIN, C4, THYGLOB AB, CH50, ROSS #### [facility] , Gamma Globulin 0.8 g/dL Normal 0.4-1.8 [facility] Comment on above: Performed By: #### T PO, C3, CHROMATIN, C4, THYGLOB AB, CH50, ROSS #### [facility] , Globulin (S) [Mass/Vol] 2.6 g/dL Normal 2.2-3.9 [facility] Comment on above: Performed By: #### T PO, C3, CHROMATIN, C4, THYGLOB AB, CH50, ROSS #### [facility] , M-Saleem Not Observed Normal Not Observed [facility] Comment on above: Performed By: #### T PO, C3, CHROMATIN, C4, THYGLOB AB, CH50, ROSS #### [facility] , Protein [Mass/Vol] 6.8 g/dL Normal 6.0-8.5 [facility] Comment on above: Performed By: #### T PO, C3, CHROMATIN, C4, THYGLOB AB, CH50, ROSS #### [facility] , SPE-Note Comment Normal . [facility] Comment on above: Result Comment: Prot ein electrophoresis scan will follow via computer, mail, or endless track vehicle mechanic delivery. Performed at: [address] [id number] Collar Shaper Operator: Bowen Mcleod PhD, Phone: [phone] PERFORMED BY: [address] [address] PATHOLOGIST SERVICE CENTER MANAGER NADYA FREDERICK M.D. Performed By: #### T PO, C3, CHROMATIN, C4, THYGLOB AB, CH50, ROSS #### [facility] , Protein Test strip (U) [Mass /Vol]Ordered By: Carol Vidal on 02-01-2025 Protein (U) [Mass/Vol] Protein [Mass/vol ume] in Urine by Test strip High Negative [facility] Protein [Mass/volume] in Ser um or PlasmaOrdered By: Carol Vidal on 02-01-2025 Protein [Mass/Vol] Protein [Mass/volume ] in Serum or Plasma 6.4-8.9 [facility] Prothrombin time (PT)Ordered By: Carol Vidal on 02-01-2025 PT Coag (PPP) [Time] Prothrombin time (PT) 9.0- 12.9 [facility] Comment on above: A hematocrit value g reater than 55% may lead to inaccurate results in coagulation testing. Patients having hematocrit values >55% require a special collection tube for coagulation studies. Please contact the laboratory at [phone] for redraw instructions. RBC Auto (Bld) [#/Vol]Ordere d By: Carol Vidal on 02-01-2025 RBC (Bld) [#/Vol] Erythrocytes [#/volu me] in Blood by Automated count 3.60-5.00 [facility] RPR w/rfx to Quant TP Abson 02-01-2025 RPR, Rfx Quant RPR Non-Reactive Normal Non Reactive [facility] Comment on above: Result Comment: Perf ormed at: CB - [facility] [address] [id number] Collar Shaper Operator: Bowen Mcleod PhD, Phone: [phone] PERFORMED BY: [address] [address] PATHOLOGIST SERVICE CENTER MANAGER NADYA FREDERICK M.D. Performed By: #### T PO, C3, CHROMATIN, C4, THYGLOB AB, CH50, ROSS #### [facility] , Serum or plasma albumin/glob ulin mass ratioOrdered By: Carol Vidal on 02-01-2025 Albumin/Globulin [Mass ratio] Serum or plasma albumin/globulin mass ratio [facility] Serum or plasma anion gap de terminationOrdered By: Carol Vidal on 02-01-2025 Anion gap [Moles/Vol] Serum or plasma an ion gap determination 6.0-15.0 [facility] Sodium [Moles/volume] in Ser um or PlasmaOrdered By: Carol Vidal on 02-01-2025 Sodium [Moles/Vol] Sodium [Moles/volume ] in Serum or Plasma 136-145 [facility] Specific gravity Test strip (U) [Rel density]Ordered By: Carol Vidal on 02-01-2025 Specific gravity (U) [Rel density] Specific gravity of Urine by Test strip 1.001-1.03 0 [facility] Thyroid Peroxidase Antibodie son 02-01-2025 Thyroid Peroxidase Antibodies 13 [IU]/mL Normal 0-34 [facility] Comment on above: Result Comment: Perf ormed at: - [facility] [address] [id number] Collar Shaper Operator: Bowen Mcleod PhD, Phone: [phone] Performed By: #### T PO, C3, CHROMATIN, C4, THYGLOB AB, CH50, ROSS #### [facility] , Thyroid Stimulating Hormoneo n 02-01-2025 TSH Qn 2.21 m[IU]/L Normal 0.45-5.33 [facility] Comment on above: Result Comment: PERF ORMED BY: [facility] [address] [place] [id number] PATHOLOGIST SERVICE CENTER MANAGER NADYA FREDERICK M.D. Performed By: #### T PO, C3, CHROMATIN, C4, THYGLOB AB, CH50, ROSS #### [facility] , Thyrotropin [Units/volume] i n Serum or PlasmaOrdered By: Carol Vidal on 02-01-2025 TSH Qn Thyrotropin [Units/v olume] in Serum or Plasma 0.45-5.33 [facility] Thyroxine (T4) free [Mass/vo lume] in Serum or PlasmaOrdered By: Carol Vidal on 02-01-2025 Free T4 [Mass/Vol] Thyroxine (T4) free [Mass/volume] in Serum or Plasma 0.61-1.12 [facility] Urea nitrogen [Mass/volume] in Serum or PlasmaOrdered By: Carol Vidal on 02-01-2025 Urea nitrogen [Mass/Vol] Urea nitrogen [Mass/volume] in Serum or Plasma 7-25 [facility] Urobilinogen Test strip (U) [Mass/Vol]Ordered By: Carol Vidal on 02-01-2025 Urobilinogen (U) [Mass/Vol] Urobilinogen [Mass/volume] in Urine by Test strip Normal [facility] WBC Auto (Bld) [#/Vol]Ordere d By: Carol Vidal on 02-01-2025 WBC (Bld) [#/Vol] Leukocytes [#/volume ] in Blood by Automated count 3.8-11.6 [facility] aPTT in Platelet poor plasma by Coagulation assayOrdered By: Carol Vidal on 02-01-2025 aPTT Coag (PPP) [Time] Activated partial thromboplastin time (aPTT) in platelet poor plasma by coagulation a 25.1-36.5 [facility] Comment on above: A hematocrit value g reater than 55% may lead to inaccurate results in coagulation testing. Patients having hematocrit values >55% require a special collection tube for coagulation studies. Please contact the laboratory at [phone] for redraw instructions. pH Test strip (U)Ordered By: Carol Vidal on 02-01-2025 pH (U) pH of Urine by Test strip 5.0-9.0 [facility] IGP,APTIMA HPV,AGE GDLNon AGE GDLN ACOG TESTING Note . [facility] Comment on above: TESTS RESULT FLAG UN ITS REF RANGE LAB Clinician Provided Cytology Information Source.............[place]ag[place] No. of containers..01 ThinPrep Vial Age Algo ACOG Mya... FLAG LEGEND: L-Low Normal,H-High Normal,LL-Alert Low,HH-Alert High <-Panic Low,>-Panic High,A-Abnormal,AA-Critical Abnormal Performed at: 01 =[address] [place] [address] Britta Wang MD, HPV APTIMA Negative Negative [facility] Comment on above: This nucleic acid am plification test detects fourteen high- risk HPV types (16,18,31,33,35,39,45,51,52,56,58,59,66,68) without differentiation. Performed at: =[facility], [place] [id number] Collar Shaper Operator: Britta Wang MD, Phone: [phone] Performed at: [facility] [address] [place], [place] [id number] Collar Shaper Operator: Kristian Waterman MD, Phone: [phone] IGP, APTIMA HPV, RFX 16/18,45 Note . [facility] Comment on above: TESTS RESULT FLAG UN ITS REF RANGE LAB DIAGNOSIS: 02 NEGATIVE FOR INTRAEPITHELIAL LESION OR MALIGNANCY. FUNGAL ORGANISMS MORPHOLOGICALLY CONSISTENT WITH VIVIANE SPECIES ARE PRESENT. Specimen adequacy: 02 Satisfactory for evaluation. Endocervical and/or squamous metaplastic cells (endocervical component) are present. Performed by: 02 Steve Saenz Training Systems Officer ([facility]) . 02 Note: Note 03 [...] High,A-Abnormal,AA-Critical Abnormal Performed at: 02 [facility] [address] [place] [address] Kristian Waterman MD, 03 WB [facility] [address] [address] Britta Wang MD, [facility]Clin ic Noteon 11-01-2024 Gastroenterology Office/Clinic Note Gastroenterology Office/Clinic Note [facility] Staff Patient is a 49 year old female who was referred by Dr Mccarty for elevated LFTs. LFTs did improve after being repeated a week later. previous EGD/ Colonoscopy - Friday, done at [place] with Dr. Li blood thinners- 325 daily [...] wisdom to (more content not included)... Normal [facility] Comment on above: Result Comment: Elec tronically Signed By: Delaney BURK, Vinayak Jimenez\.br\Date and Time Signed: 11/01/24 14:36 EST H PYLORI SCREENon 10-27-2024 H. pylori Org specific cx Ql (Sara fld) Negative Normal NEG [facility] Comment on above: Performed By: #### 4 4015-6 #### [facility] ([id number]) [address] [place] [address], [address] [place] [address] Surgical Pathologyon 024 Surgical Pathology Normal [facility] Comment on above: Result Comment: [facility] Laboratory Medicine [address] [place] [address] Surgical Pathology Consultation ADDENDUM MS Patient Name:HORACIO KEATING:1975 (Age: 49)Gender:FTaken:10/27/2024eported:11/05/2024hysician(s):Willa Li MD ([phone])Copy To: Rec. #:[id number]: #[id number] Final Pathologic Diagnosis 1. Antrum biopsy: Mild [...] data is suggested. Report Electronically Signed Out waeric/11/05/2024Smith Clark MD Addendum ([facility]) Date Reported: 11/09/2024 In specimen part 1, immunohistochemistry (with appropriate controls) for Helicobacter pylori organisms is NEGATIVE. Electronically Signed Out Smith Clark MD Interpretation performed [email or web address] [address], License number: [id number]. Clinical History Positive fecal occult blood Gross Description 1. Received in formalin labeled KEATING, antrum are two pink-julian soft tissue bits, 0.1 and 0.3 cm in greatest dimension. The specimens are filtered and submitted entirely in a single cassette. (1, ns, [id number], m8) YEISON 2. Received in formalin labeled KEATING, appendiceal are three pink-julian soft tissue bits and strips, 0.3, 0.3, and 0.6 cm in greatest dimension. The specimens are filtered and submitted entirely in a single cassette. (1, ns, [id number], m8) YEISON vaz/10/29/2024GR Specimen(s) Received 1: Antrum biopsy 2: Appendiceal orifice Fee Codes(s): 1; 97349, 14315 2; 97249 Basic Metabolic Panelon 08-03 GFR/1.73 sq M.predicted MDRD (S/P/Bld) [Vol rate/Area] mL/min/{1.73_m2} Normal [facility] Comment on above: Performed By: #### B MP, LIPID #### [facility] [address] [id number] [place] Calcium [Mass/volume] in Ser um or PlasmaOrdered By: Dedrick Fuller on 08-30-2024 Calcium [Mass/Vol] 9.9 mg/dL Normal 8.6-10.3 [facility] Comment on above: Performed By: #### B MP, LIPID #### [facility] [address] [place] [address] [facility] Carbon dioxide, total [Moles /volume] in Serum or PlasmaOrdered By: Dedrick Fuller on 08-30-2024 CO2 [Moles/Vol] 26.6 mmol/L Normal 21.0-31.0 [facility] Comment on above: Performed By: #### B MP, LIPID #### [facility] [address] [place] [address] [place] Chloride [Moles/volume] in S altagracia or PlasmaOrdered By: Dedrick Fuller on 08-30-2024 Chloride [Moles/Vol] 104 mmol/L Normal 98-107 [facility] Comment on above: Performed By: #### B MP, LIPID #### [facility] [address] [place] [address] [place] Cholesterol [Mass/volume] in Serum or PlasmaOrdered [...] MP, LIPID #### [facility] [address] [place] [address] [place] Cholesterol in LDL Calc [Mas s/Vol]Ordered By: Dedrick Fuller on 08-30-2024 Cholesterol in LDL [Mass/Vol] 134 mg/dL High 0-100 [facility] Comment on above: LDL ATP III CLASSIFI CATIONLDL less than 100 mg/dL OptimalLDL 100-129 mg/dL Near or above optimalLDL 130-159 mg/dL Borderline highLDL 160-189 mg/dL HighLDL greater than 189 mg/dL Very high Cholesterol in VLDL Calc [Ma ss/Vol]Ordered By: Dedrick Fuller on 08-30-2024 Cholesterol in VLDL [Mass/Vol] 46 mg/dL [facility] Creatinine [Mass/volume] in Serum or PlasmaOrdered By: Dedrick Fuller on 08-30-2024 Creatinine [Mass/Vol] 0.75 mg/dL Normal 0.60-1.20 [facility] Comment on above: Performed By: #### B MP, LIPID #### [facility] [address] [id number] [place] Glucose [Mass/volume] in Ser um or PlasmaOrdered By: Dedrick Fuller on 08-30-2024 Glucose [Mass/Vol] 95 mg/dL Normal 70-100 [facility] Comment on above: ADA recommended refe rence rangeRandom Glucose Reference Range is dependent on time and content of last meal. Glucose of more than 200 mg/dL in a nonstressed, ambulatory subject supports the diagnosis of Diabetes Mellitus. Result Comment: [place] om Glucose Reference Range is dependent on time and content of last meal. Glucose of more than 200 mg/dL in a nonstressed, ambulatory subject supports the diagnosis of Diabetes Mellitus. ADA recommended reference range Performed By: #### B MP, LIPID #### [facility] [address] Lipid Panelon 08-30-2024 LDL Cholesterol,Calculated 134 mg/dL High 0-100 [facility] Comment on above: Result Comment: LDL ATP III CLASSIFICATION LDL less than 100 mg/dL Optimal LDL 100-129 mg/dL Near or above optimal LDL 130-159 mg/dL Borderline high LDL 160-189 mg/dL High LDL greater than 189 mg/dL Very high Performed By: #### B MP, LIPID #### [facility] [address] Triglyceride w/Reflex 231 mg/dL High 0-149 [facility] Comment on above: Result Comment: TRIG ATP III CLASSIFICATION TRIG less than 150 mg/dL Normal TRIG 150-199 mg/dL Borderline high TRIG 200-500 mg/dL High TRIG greater than 500 mg/dL Very high Standard traceable to the Center for Disease Conrtrol and Prevention (CDC) test method. Performed By: #### B MP, LIPID #### [facility] [address] VLDL CHOLESTEROL 46 mg/dL Normal [facility] Comment on above: Performed By: #### B MP, LIPID #### [facility] [address] No Panel InformationOrdered By: Dedrick Fuller on 08-30-2024 Estimated GFR (CKD-EPI) > 60.0 mL/Min [facility] Creatinine Clearance (Chem N/A [facility] Potassium [Moles/volume] in Serum or PlasmaOrdered By: Dedrick Fuller on 08-30-2024 Potassium [Moles/Vol] 4.1 mmol/L Normal 3.5-5.1 [facility] Comment on above: Performed By: #### B MP, LIPID #### [facility] [address] Serum or plasma anion gap de terminationOrdered By: Dedrick Fuller on 08-30-2024 Anion gap [Moles/Vol] 13.5 mmol/L Normal 6.0-15.0 [facility] Comment on above: Performed By: #### B MP, LIPID #### [facility] [address] Serum or plasma high density lipoprotein (HDL) cholesterol measurementOrdered By: Dedrick Fuller on 08-30-2024 Cholesterol in HDL [Mass/Vol] 38 mg/dL Normal 23-92 [facility] Comment on above: HDL CHOL ATP-III CLA SSIFICATION Cardiovascular RiskHDL > or equal to 60 mg/dL LOWHDL < 40 mg/dL HIGH Result Comment: HDL CHOL ATP-III CLASSIFICATION Cardiovascular Risk HDL > or equal to 60 mg/dL LOW HDL < 40 mg/dL HIGH Performed By: #### B MP, LIPID #### [facility] [address] [place] [address] Serum or plasma total choles terol/high density lipoprotein (HDL) cholesterol mass ratOrdered By: Dedrick Fuller on 08-30-2024 Cholesterol.total/Chol esterol in HDL [Mass ratio] 5.7 {ratio} Normal <5.0 [facility] Comment on above: Result Comment: PERF ORMED BY: [place] [address] PATHOLOGIST SERVICE CENTER MANAGER IRMA MARCELO M.D. Performed By: #### B MP, LIPID #### [address] Sodium [Moles/volume] in Ser um or PlasmaOrdered By: Dedrick Fuller on 08-30-2024 Sodium [Moles/Vol] 140 mmol/L Normal 136-145 [facility] Comment on above: Performed By: #### B MP, LIPID #### [facility] [id number] [facility] Triglyceride [Mass/volume] i n Serum or PlasmaOrdered By: Dedrick Fuller on 08-30-2024 Triglyceride [Mass/Vol] 231 mg/dL High 0-149 [facility] Comment on above: TRIG ATP III CLASSIF ICATIONTRIG less than 150 mg/dL NormalTRIG 150-199 mg/dL Borderline highTRIG 200-500 mg/dL High TRIG greater than 500 mg/dL Very highStandard traceable to the Center for Disease Conrtrol and Prevention (CDC) test method. Urea nitrogen [Mass/volume] in Serum or PlasmaOrdered By: Dedrick Fuller on 08-30-2024 Urea nitrogen [Mass/Vol] 18 mg/dL Normal 7-25 [facility] Comment on above: Performed By: #### B MP, LIPID #### [facility] [id number] [facility] Coding Summaryon 03-19-2024 Coding Summary HTMLBase 64 TvniztrjNLv8yIk+PGhlYWQ+PE 8OCLInJ83qcFOisS8pR0KOUYrR LadeMGXDIYxHSvYkfgEwCI2cmV NjZXJu IC8+JM0mBYIoSzkklTVvz8X9rQ R9H66ykc5xGCwhqXH3KPBvCsGa hcsvr3dbwFy9XGfxJugvGfKu RIEkkL20WZX6aL11Tz95gHKluG Eil9vwiMi1PlDzICZzEQL0tEyh PUylm2TlOAKqX08hkUPeu0G9 RECwdPilwWXtXwObaVO6tF6uQX gburqxr8vrdkyoTkd1sl62lTFd e7V8pQS0V4KjptL9PKDtgEXj DjxjlHPDoA2bapuxf5tznvcdZv QcWTVoIBy6ERk0ONJkmTmqGdZf YW49UZO6IYQdtiTcQ5CiVNZg wUlrOwK8l0T7Qr4IN3CYAxpbX7 VNTUFSWTwvdGQ+NE73fj65Z0Cv HwfgPmf1FWQhEVO2uKL0bP1x VBIpSGevn3I0bEE6O6SitkCapc 8ok4tiNHFdRFrbB58vkEHpx3F4 SGXifEB6SSQtgHnhKbLngW93 Oyc+NMZmiLazn9ZkHxfbl3bsu6 zsfTx2KpcyIRLgioSfcYqqNLW7 d7YfPw0ePTFdxAR8tDI0yG3p WlAuJnB0SEwzQ655WiCjcJMxBk faO79rX7PteGP+YVTaUwk0PLFq mRqcYJ2jN1EnYJCcuaismLEm xDlyNT8gGDYfuvdjLQMixE3kFP KqL0x8CyPkSdI5OMcyF5HbSKNq sjreSt87fW2hNzXxDpW5DQmr T6LyteQ4WNDkyQQiPSetHNJ5S4 6pa1M1AXBzTDYkQWX9pDA5wI2b bGlnbjogbGVmdDsgdmVydGlj MLroRUpcB799IOYvqIfvFyPiHN luZyBEYXRlOiAgMDQvMTkvMjAy NDwvdGQ+MQOuIGE6rEcqKPBk pQXuABzvRn5giKcooKjoJV8bPG BwjxahFSYuqX6xTWOydWQncQro PD1kURXmxjhcs947JtYlBRH6 NRNusMHeA9JsaK0sQjGdQCAsUN XiF3KugRLeZYowH115SQbtRqA0 DQBawsSbB3FzLOVcyTqaVrZ9 e3J1Ap3Hh2PmrixrT0EqjLMxKl UhOyayKAf9L6OkNqcbjCV+PC90 UQNgBE28SMf2MCG5rAzdOQkq TQByA3VbxC3kLkExQPUxFTJoDw c+PHRhYmxlIHdpZHRoPScxMDAl IrVnoInrDD4aIk4wKXZcXNOk rQtnqDHxVcCoi5meBWQvDNwuJG 9ezGwzJ1AxvJU1UDGsx2y7Vg40 V87dG3HlnPI+NIVejSN5oDU6 xF1fOwNpYcG4FGebJ491XqImfJ CdWmvmj3ccf0ehvJa4BwX1TCLu wsEzaPhuYKF8h0OgCi34B54e IHdpZHRoPSIxNSUiIHZhbGlnbj 1eqE2vPs0+PRQqiGL2sZY8fN6s XwUhErC3EOezV903KlPelULy Tzwcf4ava5jizCx6CxWnNYTfqt ZbgNkcMPF8d9QiHx97B0KgpKtg v6UuMma3lo40lJZus5U2aEX9 N2IzYNMzyjxbsBWbeZqlKF3bIE QqptabKJOvcW6uRBGvP9r9SwNh EpN2DFzpO0QetiB3WTFbrWHm XWHxkYDWtX8hnpqkz3sjrxraJz VpEEPeRRv7NGp0FMLwfCulOgZu HAH0WtC1ABK4zFSpfP1gdDcc kdidxX3vDfm+NXQ3xXXpiKCVOC 1lOjwvdGQ+CURaNHD6oOhmGHhx FAFebP4aTOLeT4p8CgBzTmV3 SGcwM8NbfgG1GDXbnZSdRWQdvW RIvR9yrfbtb9bnhjeiToSaLBOo IWa0ARu9QHErvMmaWwVzCCC0 ZtI0TWN4cKJzeN0zxQofbcgrzX 9wOyc+PgpfyPjfIKB8HQq3F2Pg Yde0LBIjrIweIW1jmDCpWZhp Rk7fnDfawZnfIU2xODAnmtfhu5 88DgWuz6dfCBWigIBhFVxsLRL9 Y08vh8M3BRUcDILfMZM3pDC3 uJ9owFjcznvusOVocMtugiPdpM djWVpjKZdrR640ISLnnQocKlKk ZNi4K3KsVau0RHFgdOziDP6n uXDhPMbyCm0jkUhhoQrpZY8lGO Tasbzcw705ZqJek7paQDEcbGXk ZEqtDIF2I06on9Y8PGIcROPp NME4tZY4tJ7hwNdpzppluORvuP pwxdQdkVvlKZkzXIqeN693GKMx mMrhTsQxoIj5D5RxApw6KLIs yQmtII2diOTkEVfxIu3fzRempD oqSP4rSRCkgdpmg084OiNsk0sy VCEocPYqFQqbZOE2P45qc0H2 JZIdGPGsJCE0pDN9oO8xoXsikc ogbGVmdDsgdmVydGljYWwtYWxp A142DEUtwFknHcYieBclszJb JHafFEb1T6QdFrdwvWN+PC90YW CiDG61oRLubEKfv9njsUy2MvZd TCMjMBX7kFamNMpkl6HdPYRi K64mkPMzp4K6VDAtlOvcuJRdBn GzdQL0jD5aZMzenyibz2qpumoj Xddqb9cshn15hF93F93wAJvq KEKvAXSyNGZdVVAagOemmh5tdF 9wIi8+IKJrsNA9fUH9xY2zPGMy AtN5RTciC215FeWusVLuNrpw g7wah4ovxDd3ThV7VEYlnhJqcW fqFMJ6s0ZbCv28O74zHSghPGBl HOQdNVBlLUPfaWabgu7veT0c Ii8+ABJrsAR0oZL0sD8vEpZnRt Q5RRkcB153MaLzxXLzFwmnW92a Z8JaiPP+KRNfOgr9HUSmcDhd GG6foMYiAKguCf2oPEI9EzBsSu NbSVtxR0HkJZUdsvbqfatvrCX9 CBDzGIYuaN26Dt8gpMrlDYYi bOLRjU9lluxpr1hqfabcCjKiMP TdRRf1WLw7ONLkpZsgPxJiHIP0 GkO9KXY5aLGpcZ4cxRigeuyk pW4sS4SwSNXhusglVt61iF3hAb VcAuO1DTlgNkv+D72SWNJPLULL JWQQTD3OBS8BV17MTKmmhYU+ ADAzTCW9gQjbNLkyWHEiyK8zEC CpD5w6UnJjRpT2AXviN6OsZUPx ypvxRb95iT9vNfZuDkV3OPrx C7QwwrA7VULmsAQqCXtmWXU6U5 2ms9F1AGBdPTCaHAV3lAO6zQ9m bGlnbjogbGVmdDsgdmVydGlj LWdhVMnlY529UKTdbBulJwA5Xg S1ZjY4CmN3E5BuKvq1HJGckJfm DE1aiVIiNPsfZc4wbXiymSxq OH7qCHXkidvnCLYatE9qBYTejZ YngMghHE1bTURormzvq155MdAl DYM6WIQhvMYoO5EzcE0eHzIp XCBqHSZnM1OddZMfZKzdR350BO ylDtX1QTQqgqZyG9MvACMctLyv MhE8w1S4Nd27FjBHZSDeugwf dGQ+ULXkWPJ3dLixVLdcDXKraK 8iLIVhO9r7OmMoOmX7MVxsF2Te IAYzrbbkXp46iV5hUlFeBxO0 OIdbD9LtjoL3QGOkzUPsJPkjWM V7G10sg4K4XYXpWWTyZNH4lNY7 tM5fbHxyzdpjfTXzqZcwqoCs wPhsQYznEQztQ389UTEsoTlgTp ZFTUFMRTwvdGQ+EZHoDGN5gAih ASksDUTkiT0sJMXlK1z7TfUe EsX3MOljB6XlUUNfdmgoPu54fO 1tXaYyHeH7HQzzM7IqreI0DSQk lMGrMAonCCM5P09no5B3HTHm DRFgCWR3qKG2uW5shBunzvsaeS XyaOqwyqEydBpdDPvaHMllE718 BQDiaPjkAbRzYZOaMC2chYgo dGQ+WU15jc93K4MbYbhxHjh2BZ JnKOS8kLI2zU0xLUIzACmju1H0 oFO5D4UazjXvst6wl7etKPZn UDniT95qiVBke0I2FSRjsGT0PM IedIbhCeOqrV99Ujo+PGNvbGdy r2IiOqair5fip9hbcHg7ZqRo ZYLhejAogIawFLH0y9ClVp79E1 9sIHdpZHRoPSIzMCUiIHZhbGln cx9jyU5lUh5+YIEjaVM4oCI1 kC9mRhNuNqB6YDxdI116TrSumV VbArssx5gna3vzzOe7JpZzNCOu pxSqcAgvEME4d7XrJq51A7Go cMzgf2NyQbw2xe59bVVqw5Z8tT V8B3TqUYNumtqzmRFekHfbVA0v JLJpqymhXYKjdB5rWXRiP5f0 QxRrFyG6VKchV1RkxaN4GEBqvN FjHHNqxUMPhY3exxfcm0uiqwhh AzIfYKFbPFo9PJv4PZQniYob FgJoLEK2GjV6PAG3bFOzpV5dqK mjzppvvD4nIrh+TYl9e4tlxWRk DP7auOK5TV81CK78fPSap0K8 yOI6T2VcAHVnejfgofttlOR7RK EnPJWwnC04Tn7gaFgnXx9qEQCq JKG6FPVpgOUrK9JaeC4cZiMa JWByYIEtF2TkwDYjQCaiX419ZW lxGzW4CICtsuBaQ8MrKERnbDvk YfP1j8U6Fw9EMG93CY33EI45 yQZbv1D5bER9U4SwTCWmxetsoi boqZF4VJOaBYElqL86Ej3swLjw Uf6hKBGiDBD3ZEIxhSPeY8Gs dS1kQzDvIOJvVLScQ3FxtTSdHF ewI639RRqnGjW8GEGavzHiD0Wm MWAycXvmAzX0m2V8Qt4BYa02 OL76XG95jYOhf5F7pXZ9P3ArIL NescoixfctpRQ2UNLwFWDuyF87 Zf9ikJsmJp5tWAVlNQQ9TYOi pFUyU5NvlV8tLmLdAAPgBEYcU7 DuvPYaDEigV590BDttTcI2IJJq qqHhJ8VfGBTwsYayNcR5h6V6 Gp7KMTlhjhz2P1OoMtieuYH+PC 64RXYqND96yEGzbRDli4qgvUz2 QzLnVJXsUAX9bLzgSVzhd9Av ZXI (more content not included)... [facility] Noteon 03-17-2024 Ambulance Note [id number] [facility] C Urineon 03-17-2024 C Urine Urine Culture ordere d as a result of parameters set on specific urine dip and urine microsopic results. >100,000 cfu/ml Lactobacillus species Normal vaginal oleg isolated 10,000 cfu/ml Corynebacterium species (DIPTHEROID) No YOLANDE performed on this organism No pathogens isolated [facility] Comment on above: Performed By: #### 5 [id number], [id number], [id number] ####[facility] (DEFAULT)[address] [place] [address] .Auto Diff 1on 03-15-2024 Auto [place] % 3 % Normal -12 [facility] Comment on above: Performed By: #### 5 [id number], [id number], [id number], 93063466, 7963709743, 4621328, 9008757 #### [facility] (DEFAULT) [address] [place] [address] Baso Abs# 0.1 x10 Normal 0.0-0.2 [facility] Comment on above: Performed By: #### 5 [id number], [id number], [id number], 99745582, 3489154281, 7953230, 0879713 #### [facility] (DEFAULT) [address] [place] [address] Basophils/100 WBC (Bld) 0.7 % Normal 0.2-2.0 [facility] Comment on above: Performed By: #### 5 [id number], [id number], 4702327262, 16961521, 4648998366, 2422483, 1838722 #### [facility] (DEFAULT) [address] [place] [address] Eos Abs# 0.1 x10 Normal 0.0-0.4 [facility] Comment on above: Performed By: #### 5 [id number], [id number], 5482613318, 41049907, 8888193457, 5268458, 7157583 #### [facility] (DEFAULT) [address] [place] [address] Eosinophils/100 WBC (Bld) 0.7 % Low 0.9-4.0 [facility] Comment on above: Performed By: #### 5 [id number], 0895796328, 6733308173, 18306177, 1118508798, 6239223, 2878038 #### [facility] (DEFAULT) [address] [place] [address] Lymph Abs# 2.2 x10 Normal 1.3-2.9 [facility] Comment on above: Performed By: #### 5 [id number], 8220570654, 0815476610, 65659556, 5148709092, 7057932, 7157696 #### [facility] (DEFAULT) [address] [place] [address] Lymphocytes/100 WBC (Bld) 14 % Normal 14-48 [facility] Comment on above: Performed By: #### 5 [id number], 3048087430, 7069165549, 43742305, 9225031938, 3796074, 6642321 #### [facility] (DEFAULT) [address] [place] [address] Dauphin Abs# 0.5 x10 Normal 0.0-0.8 [facility] Comment on above: Performed By: #### 5 [id number], [id number], 6708758581, 53135428, 2030765835, 6000589, 7377641 #### [facility] (DEFAULT) [address] [place] [address] Neut Abs# 13.5 x10 High 1.5-9.2 [facility] Comment on above: Result Comment: Slid e Reviewed Performed By: #### 5 [id number], [id number], 5254905343, 70984239, 7402401995, 0608087, 2145543 #### [facility] (DEFAULT) [address] [place] [address] Neutrophils/100 WBC (Bld) 82 % Normal 44-88 [facility] Comment on above: Performed By: #### 5 [id number], 6369654516, 5433334666, 18404726, 4347849727, 4973025, 4472964 #### [facility] (DEFAULT) [address] [place] [address] CBC w/ Auto Diffon 4 Erythrocyte distribution width (RBC) [Ratio] 13.3 % Normal 11.5-15.0 [facility] Comment on above: Performed By: #### 5 [id number], [id number], 6436590121, 41223369, 2657148210, 1305877, 8489295 #### [facility] (DEFAULT) [address] [place] [address] Hematocrit (Bld) [Volume fraction] 45.0 % High 33.7-40.4 [facility] Comment on above: Performed By: #### 5 [id number], 7295937290, 2869731445, 21032095, 6314161520, 8124687, 6998415 #### [facility] (DEFAULT) [address] [place] [address] Hemoglobin (Bld) [Mass/Vol] 15.0 g/dL Normal 11.3-15.9 [facility] Comment on above: Performed By: #### 5 [id number], 3999600439, 8897207480, 75439484, 8493526005, 7261451, 1735213 #### [facility] (DEFAULT) [address] [place] [address] Man Diff? Auto Invalid Interpretation Code [facility] Comment on above: Performed By: #### 5 [id number], [id number], 2812913226, 08937474, 3290649730, 2535419, 7973312 #### [facility] (DEFAULT) [address] [place] [address]2614 MCH (RBC) [Entitic mass] 32 pg Normal 24-34 [facility] Comment on above: Performed By: #### 5 [id number], 0105793152, 6866123896, 96288242, 1257861037, 4829681, 0725079 #### [facility] (DEFAULT) [address] [place] [address]907 MCHC (RBC) [Mass/Vol] 33 g/dL Normal 26-37 [facility] Comment on above: Performed By: #### 5 [id number], 7353257731, 7280555608, 05436644, 7589663387, 0254239, 7533327 #### [facility] (DEFAULT) [address] [place] [address]90 MCV (RBC) [Entitic vol] 95 fL Normal 81-100 [facility] Comment on above: Performed By: #### 5 [id number], 0558149988, 8688620145, 87313762, 0513402636, 5068487, 2138379 #### [facility] (DEFAULT) [address] [place] [address] 18518 Platelet 292 x10 Normal 138-427 [facility] Comment on above: Performed By: #### 5 [id number], [id number], 1879631621, 20448575, 2357165928, 9361222, 1395183 #### [facility] (DEFAULT) [address] [place] [address]12 Platelet mean volume (Bld) [Entitic vol] 8.7 fL Normal 6.3-10.2 [facility] Comment on above: Performed By: #### 5 [id number], [id number], 1901957564, 95989135, 0547344668, 5888094, 0725540 #### [facility] (DEFAULT) [address] [place] [address] RBC 4.74 x10 Normal 3.70-5.30 [facility] Comment on above: Performed By: #### 5 [id number], 4320178193, 2099333367, 34554807, 5257437892, 5626673, 8583817 #### [facility] (DEFAULT) [address] [place] [address] 04054 WBC 16.4 x10 High 3.5-10.5 [facility] Comment on above: Performed By: #### 5 [id number], 9878312252, 2313640019, 40608457, 2992449383, 5724207, 3916831 #### [facility] (DEFAULT) [address] [place] [address] 05239 CMP Standardon 03-15-2024 eGFR Non AA >[address] [facility] Comment on above: Performed By: #### 5 [id number], [id number], 8852807207, 67220190, 6884208890, 2819780, 3764255 #### [facility] (DEFAULT) [address] [place] [address] 56705 eGFR AA >[address] [facility] Comment on above: Performed By: #### 5 [id number], 9441784002, 9010623468, 84882023, 3694010988, 0455489, 0084558 #### [facility] (DEFAULT) [address] [place] [address] 00607 Albumin [Mass/Vol] 4.1 g/dL Normal 3.5-5.0 [facility] Comment on above: Performed By: #### 5 [id number], 1292644984, 1514836618, 64350471, 7996490782, 9197280, 2332385 #### [facility] (DEFAULT) [address] [place] [address] 44883 Albumin/Globulin [Mass ratio] 1.3 {ratio} Low 1.4-2.6 [facility] Comment on above: Performed By: #### 5 [id number], 0128881291, 1753333127, 34639984, 6463732344, 3275895, 6070748 #### [facility] (DEFAULT) [address] [place] [address] 02821 Alk Phos 39 IU/L Normal 32-91 [facility] Comment on above: Performed By: #### 5 [id number], 4844146476, 4371611410, 42204872, 6546389549, 4739581, 2768687 #### [facility] (DEFAULT) [address] [place] [address] 61289 ALT [Catalytic activity/Vol] 32.0 U/L Normal 14.0-54.0 [facility] Comment on above: Performed By: #### 5 [id number], 7225098328, 2765785820, 45023194, 2662149626, 3362525, 7969399 #### [facility] (DEFAULT) [address] [place] [address] 20875 Anion gap [Moles/Vol] 13.0 mmol/L Normal 5.0-19.0 [facility] Comment on above: Performed By: #### 5 [id number], 4236641868, 8408066136, 50713104, 5845527803, 7207977, 0370372 #### [facility] (DEFAULT) [address] [place] [address] 98636 AST [Catalytic activity/Vol] 25 U/L Normal 15-41 [facility] Comment on above: Performed By: #### 5 [id number], 4237364668, 3524982610, 42069689, 1176934089, 1251373, 3904722 #### [facility] (DEFAULT) [address] [place] [address] 41445 Bili Total 1.4 mg/dL High 0.3-1.2 [facility] Comment on above: Performed By: #### 5 [id number], 9896333433, 0483599766, 00919400, 8388275840, 2707295, 5752961 #### [facility] (DEFAULT) [address] [place] [address] 78269 Calcium [Mass/Vol] 8.8 mg/dL Low 8.9-10.3 [facility] Comment on above: Performed By: #### 5 [id number], 2376249758, 5169534816, 14269600, 6150214869, 4827312, 8838130 #### [facility] (DEFAULT) [address] [place] [address] 60664 Chloride [Moles/Vol] 105 mmol/L Normal 101-111 [facility] Comment on above: Performed By: #### 5 [id number], 2167307754, 4428656577, 14826705, 3083904215, 7706397, 1043479 #### [facility] (DEFAULT) [address] [place] [address] 79487 CO2 [Moles/Vol] 24 mmol/L Normal 21-32 [facility] Comment on above: Performed By: #### 5 [id number], 5462203128, 6272455162, 93699709, 1935121008, 8540134, 7316897 #### [facility] (DEFAULT) [address] [place] [address] 76981 Creatinine [Mass/Vol] 0.72 mg/dL Normal 0.60-1.30 [facility] Comment on above: Performed By: #### 5 [id number], 3714989066, 0071066464, 74020514, 8138485998, 9232889, 6330510 #### [facility] (DEFAULT) [address] [place] [address] 29397 Globulin (S) [Mass/Vol] 3.0 g/dL Normal 1.5-4.3 [facility] Comment on above: Performed By: #### 5 [id number], 0212889685, 9934358901, 38805820, 5611612439, 2552475, 0918249 #### [facility] (DEFAULT) [address] [place] [address] 49194 Glucose [Mass/Vol] 124.0 mg/dL High 74.0-118.0 [facility] Comment on above: Performed By: #### 5 [id number], 2042985041, 9453967865, 82009533, 6216348518, 8250774, 0599477 #### [facility] (DEFAULT) [address] [place] [address] 16061 Osmolality 278 mOsm/L Invalid Interpretation Code [facility] Comment on above: Performed By: #### 5 [id number], [id number], [id number], [id number], [id number], [id number], [id number] #### [facility] (DEFAULT) [address] [place] [address] 95182 Potassium [Moles/Vol] 4.0 mmol/L Normal 3.6-5.1 [facility] Comment on above: Performed By: #### 5 [id number], [id number], [id number], [id number], [id number], [id number], 8515989 #### [facility] (DEFAULT) [address] [place] [address] 54480 Protein [Mass/Vol] 7.1 g/dL Normal 6.5-8.1 [facility] Comment on above: Performed By: #### 5 [id number], [id number], [id number], [id number], [id number], 5511042, [id number] #### [facility] (DEFAULT) [address] [place] [address] 65847 Sodium [Moles/Vol] 138.0 mmol/L Normal 136.0-[address] [facility] Comment on above: Performed By: #### 5 [id number], [id number], [id number], [id number], [id number], 4766492, [id number] #### [facility] (DEFAULT) [address] [place] [address] 93038 Urea nitrogen [Mass/Vol] 15 mg/dL Normal 8-26 [facility] Comment on above: Performed By: #### 5 [id number], [id number], [id number], [id number], [id number], 9753679, 5358722 #### [facility] (DEFAULT) [address] [place] [address] 90211 Urea nitrogen/Creatinine [Mass ratio] 20.8 mg/mg High 4.6-16.2 [facility] Comment on above: Performed By: #### 5 [id number], [id number], [id number], 87380192, [id number], 8535448, 9901047 #### [facility] (DEFAULT) [address] [place] [address] [facility] Comment on above: Performed By: #### 5 [id number], [id number], [id number], [id number], [id number], 3486811, 9451778 #### [facility] (DEFAULT) [address] [place] [address] 37496 ED Clinical Summaryon [address] [facility] - Emergency Department [address] [place] [address] 76700 ED Clinical Summary PERSON INFORMATION Name: HORACIO KEATING Age: 48 Years Sex: FEMALE : 1975 MRN: Acct#: Visit Reason: Shortness of breath; Anxiety; Blood pressure check; SOB Arrival: 03/15/2024 17:56:51 Discharge: 03/15/2024 20:31:00 LOS: 000 02:35 Check In: 03/15/2024 17:56:51 Checkout:03/15/2024 20:31:00 Address: [address] [place] [address] PCP: SAMI MCCARTY PROVIDER INFORMATION Provider Role Assigned Unassigned Nicola Neff DO ED Provider 03/15/2024 18:07:25 Shanika Narvaez RN ED Nurse 03/15/2024 18:08:57 Joanna Angeles [employer] Nurse 03/15/2024 19:24:01 VITALS INFORMATION Vital [...] Physical Exa (more content not included)... Normal [facility] ED Note - Physicianon 2023 ED Note - Physician Patient: ANTONIO KEATING Age: 48 years Sex: FEMALE : [...] Note-Nursing Patient presents to the ER via [facility] for shortness of breath, anxiety. Patient [...] cannula. 12 lead was regular in rate [facility] ED Patient Summaryon [address] [facility] - Emergency Department [address] [place], [place] [id number] PATIENT DISCHARGE INSTRUCTIONS Patient Information Name: HORACIO KEATING Age: 48 Years Date of : 1975 Reason For Visit: Shortness of breath; Anxiety; Blood pressure check; SOB Arrival Time: 03/15/2024 17:56:51 Primary Care Physician: SAMI MCCARTY Attending Physician: Nicola Neff DO Comment: Visit Diagnosis: Diagnoses This Visit Anxiety ([id number]) Blood pressure check ([id number]) Hypertension (I10) Panic attack (F41.0) Shortness of breath ([id number]) Urinary tract infection (N39.0) The Pharmacy at [facility] is open Friday through Friday from 9A [...] alcohol and/or drug addiction problems; contact the [facility] 23/06 Crisis Hotline -text 4hope to [phone]. If you received any narcotics, sedation, or [...] legal documents With: Address: When: SAMI MCCARTY [address] [place] [address] [address] [place] [id number] Business (1) Within 3 to 5 days Comments: Call for follow up appointment Return if symptoms worsen Medication Information: The exam and treatment you received today in the [facility] Emergency Department were for an urgent problem and are not intended as complete care. It is important for you to follow up with a doctor, nurse practitioner, or physician?s ortho assistant for ongoing care. If your symptoms [...] of medications post discharge. Please inform your rover tender/provider of your visit and for further instruction [...] included)... Normal [facility] Extra Greenon 03-15-2024 Tube Collected Yes Invalid Interpretation Code [facility] Comment on above: Performed By: #### 5 [id number], [id number], [id number], [id number], 8513820892, 8877681, 9225354 #### [facility] (DEFAULT) [address] [place] [address] Extra Redon 03-15-2024 Tube Collected Yes Invalid Interpretation Code [facility] Comment on above: Performed By: #### 5 [id number], [id number], [id number], [id number], [id number], 1601326, 3655903 #### [facility] (DEFAULT) [address] [place] [address] 15181 PTon 03-15-2024 INR Coag (PPP) [Relative time] 0.94 {INR} Normal 0.91-1.11 [facility] Comment on above: Performed By: #### 5 [id number], [id number], [id number], 75381046, 0245776331, 4648867, 8897101 #### [facility] (DEFAULT) [address] [place] [address] 43385 PT 9.8 second(s) Normal 9.7-11.8 [facility] Comment on above: Performed By: #### 5 [id number], [id number], [id number], 86960692, 0447516242, 5321592, 7013981 #### [facility] (DEFAULT) [address] [place] [address] 54158 TnI HSon 03-15-2024 Troponin I High Sensitivity 7.7 pg/mL Normal <=15.0 [facility] Comment on above: Performed By: #### 5 [id number], [id number], [id number], 02205079, 2073648833, 1257798, 4760034 #### [facility] (DEFAULT) [address] [place] [address] UA Bxdnt2ul 03-15-2024 UA Amorph. 1+ [facility] Comment on above: Order Comment: Urina lysis Microscopic order added on by Discern Expert Rules system. Performed By: #### 5 [id number], [id number], [id number] ####[facility] (DEFAULT)[address] [place] [address] UA Bacteria 3+ Normal [facility] Comment on above: Order Comment: Urina lysis Microscopic order added on by Discern Expert Rules system. Performed By: #### 5 [id number], [id number], [id number] ####[facility] (DEFAULT)[address] [place] [address] UA Mucous 1+ [facility] Comment on above: Order Comment: Urina lysis Microscopic order added on by Discern Expert Rules system. Performed By: #### 5 [id number], [id number], 9674749 ####[facility] (DEFAULT)[address] [place] [address] UA RBC 3-5 [facility] Comment on above: Order Comment: Urina lysis Microscopic order added on by Discern Expert Rules system. Performed By: #### 5 [id number], [id number], [id number] ####[facility] (DEFAULT)[address] [place] [address] UA Renal Epi Rare [facility] Comment on above: Order Comment: Urina lysis Microscopic order added on by Discern Expert Rules system. Performed By: #### 5 [id number], [id number], [id number] ####[facility] (DEFAULT)[address] [place] [address] UA Squam Epi Many [facility] Comment on above: Order Comment: Urina lysis Microscopic order added on by Discern Expert Rules system. Performed By: #### 5 [id number], [id number], [id number] ####[facility] (DEFAULT)[address] [place] [address] 73819 UA WBC 3-5 [facility] Comment on above: Order Comment: Urina lysis Microscopic order added on by Discern Expert Rules system. Performed By: #### 5 [id number], [id number], [id number] ####[facility] (DEFAULT)[address] [place] [address] 44519 UA w Culture if Ind Standard on 03-15-2024 Breakpoint UA [facility] Comment on above: Performed By: #### 5 [id number], [id number], [id number] ####[facility] (DEFAULT)[address] [place] [address] Color (U) Yellow [facility] Comment on above: Performed By: #### 5 [id number], [id number], 7242290 ####[facility] (DEFAULT)[address] [place] [address] Culture? Indicated Invalid Interpretation Code [facility] Comment on above: Result Comment: Resu lt created by rule GL_MAGR_ADD_UA_CULT Result created by rule GL_MAGR_ADD_UA_CULT Result created by rule GL_MAGR_ADD_UA_CULT1 Result created by rule GL_MAGR_ADD_UA_CULT Performed By: #### 5 [id number], [id number], [id number] ####[facility] (DEFAULT)[address] [place] [address] Glucose (U) [Mass/Vol] Negative [facility] Comment on above: Performed By: #### 5 [id number], [id number], [id number] ####[facility] (DEFAULT)[address] [place] [address] 16115 Ketones Ql (U) Negative [facility] Comment on above: Performed By: #### 5 [id number], [id number], 9233692 ####[facility] (DEFAULT)[address] [place] [address] 10281 Micro? Indicated Invalid Interpretation Code [facility] Comment on above: Result Comment: Resu lt created by rule GL_MAGR_ADD_UA_MICRO Performed By: #### 5 [id number], [id number], [id number] ####[facility] (DEFAULT)[address] [place] [address] 11990 UA Bilirubin Negative Normal [facility] Comment on above: Performed By: #### 5 [id number], [id number], [id number] ####[facility] (DEFAULT)[address] [place] [address] 65143 UA Blood TRACE Abnormal NEGATIVE [facility] Comment on above: Performed By: #### 5 [id number], [id number], 4837589 ####[facility] (DEFAULT)[address] [place] [address] 25270 UA Clarity SL CLOUDY Abnormal CLEAR [facility] Comment on above: Performed By: #### 5 [id number], [id number], 4561002 ####[facility] (DEFAULT)[address] [place] [address] 75719 UA Leuk Est LARGE Abnormal NEGATIVE [facility] Comment on above: Performed By: #### 5 [id number], [id number], 8967476 ####[facility] (DEFAULT)[address] [place] [address] 79768 UA Nitrite Negative Normal [facility] Comment on above: Performed By: #### 5 [id number], [id number], 3704898 ####[facility] (DEFAULT)[address] [place] [address] 14175 UA pH 6.0 Normal 5-8 [facility] Comment on above: Performed By: #### 5 [id number], [id number], 6451116 ####[facility] (DEFAULT)[address] [place] [address] 13591 UA Protein Negative Normal [facility] Comment on above: Performed By: #### 5 [id number], [id number], 2335817 ####[facility] (DEFAULT)[address] [place] [address] 90601 UA Spec Grav 1.015 Normal 1.001-1.[address] [place] [address] Comment on above: Performed By: #### 5 [id number], [id number], 6863730 ####[facility] (DEFAULT)[address] [place] [address] UA Urobilinogen 0.2 mg/dL Normal 0.2-1.0 [facility] Comment on above: Performed By: #### 5 [id number], [id number], [id number] ####[facility] (DEFAULT)[address] [place] [address] Urine Source Clean Catch Normal [facility] Comment on above: Performed By: #### 5 [id number], [id number], [id number] ####[facility] (DEFAULT)[address] [place] [address] XR Chest 1 View Frontalon XR Chest [...] MD 03/15/24 7:34 pm Technologist: Lizzy BRICEÑO [facility] Calcium [Mass/volume] in Ser um or PlasmaOrdered By: Dedrick Fuller on 08-15-2023 Calcium [Mass/Vol] 9.1 mg/dL 8.6-10.3 [facility] Carbon dioxide, total [Moles /volume] in Serum or PlasmaOrdered By: Dedrick Fuller on 08-15-2023 CO2 [Moles/Vol] 26.7 mmol/L 21.0-31.0 [facility] Chloride [Moles/volume] in S altagracia or PlasmaOrdered By: Dedrick Fuller on 08-15-2023 Chloride [Moles/Vol] 107 mmol/L 98-107 [facility] Cholesterol [Mass/volume] in Serum or PlasmaOrdered [...] LDL [Mass/Vol] 95 mg/dL 0-100 [facility] Comment on above: LDL ATP III CLASSIFI CATIONLDL less than 100 mg/dL OptimalLDL 100-129 mg/dL Near or above optimalLDL 130-159 mg/dL Borderline highLDL 160-189 mg/dL HighLDL greater than 189 mg/dL Very high Cholesterol in VLDL Calc [Ma ss/Vol]Ordered By: Dedrick Fuller on 08-15-2023 Cholesterol in VLDL [Mass/Vol] 32 mg/dL [facility] Creatinine [Mass/volume] in Serum or PlasmaOrdered By: Dedrick Fuller on 08-15-2023 Creatinine [Mass/Vol] 0.77 mg/dL 0.60-1.20 [facility] Glucose [Mass/volume] in Ser um or PlasmaOrdered By: Dedrick Fuller on 08-15-2023 Glucose [Mass/Vol] 97 mg/dL 70-100 [facility] Comment on above: ADA recommended refe rence rangeRandom Glucose Reference Range is dependent on time and content of last meal. Glucose of more than 200 mg/dL in a nonstressed, ambulatory subject supports the diagnosis of Diabetes Mellitus. No Panel InformationOrdered By: Dedrick Fuller on 08-15-2023 Estimated GFR (CKD-EPI) > 60.0 mL/Min [facility] Creatinine Clearance (Chem N/A [facility] Potassium [Moles/volume] in Serum or PlasmaOrdered By: Dedrick Fuller on 08-15-2023 Potassium [Moles/Vol] 4.0 mmol/L 3.5-5.1 [facility] Serum or plasma anion gap de terminationOrdered By: Dedrick Fuller on 08-15-2023 Anion gap [Moles/Vol] 10.3 mmol/L 6.0-15.0 [facility] Serum or plasma high density lipoprotein (HDL) cholesterol measurementOrdered By: Dedrick Fuller on 08-15-2023 Cholesterol in HDL [Mass/Vol] 39 mg/dL 23-92 [facility] Comment on above: HDL CHOL ATP-III CLA SSIFICATION Cardiovascular RiskHDL > or equal to 60 mg/dL LOWHDL < 40 mg/dL HIGH Serum or plasma total choles terol/high density lipoprotein (HDL) cholesterol mass ratOrdered By: Dedrick Fuller on 08-15-2023 Cholesterol.total/Chol esterol in HDL [Mass ratio] 4.3 {ratio} <5.0 [facility] Sodium [Moles/volume] in Ser um or PlasmaOrdered By: Dedrick Fuller on 08-15-2023 Sodium [Moles/Vol] 140 mmol/L 136-145 [facility] Triglyceride [Mass/volume] i n Serum or PlasmaOrdered By: Dedrick Fuller on 08-15-2023 Triglyceride [Mass/Vol] 162 mg/dL 0-149 [facility] Comment on [...] nitrogen [Mass/Vol] 10 mg/dL 7- [facility] GTT 2 HRon 11-09-2022 Glucose [Mass/Vol] 107 mg/dL Critically high 74-106 [facility] Comment on above: Performed By: #### U LG, CRP #### [facility] [address] [place] [address] [address] Soo Donnelly Glucose [Mass/Vol] 152 mg/dL Normal [facility] Comment on above: Performed By: #### U LG, CRP #### [facility] [address] [place] [address] [address] Soo Donnelly Glucose [Mass/Vol] 121 mg/dL Normal [facility] Comment on above: Performed By: #### U LG, CRP #### [facility] [address] [id number] Soo [address]ly [address] ABD/PELV W CONon [...] ELENA SAUCEDA Date: 2022-10-01 10:31 Normal [facility] CBC AUTO DIFFon 09-18-2022 BASO # 0.0 103/ul Normal 0.0-0.1 [facility] Comment on above: Performed By: #### A NAD #### [facility] [address] [place], [place] [address] Dr. Soo Donnelly Basophils/100 WBC (Bld) 0.4 % Normal 0.2-2.0 [facility] Comment on above: Performed By: #### A NAD #### [facility] [address] [place] [address] Dr. Soo Donnelly EO # 0.1 103/ul Normal 0.0-0.7 [facility] Comment on above: Performed By: #### A NAD #### [facility] [address] [place] [address] Dr. Soo Donnelly Eosinophils/100 WBC (Bld) 1.8 % Normal 0.9-7.0 [facility] Comment on above: Performed By: #### A NAD #### [facility] [address] [place] [address] Dr. Soo Donnelly Erythrocyte distribution width (RBC) [Ratio] 11.9 % Normal 11.0-15.0 [facility] Comment on above: Performed By: #### A NAD #### [facility] [address] [place] [address] Dr. Soo Donnelly Hematocrit (Bld) [Volume fraction] 43.9 % Normal 36.0-48.0 [facility] Comment on above: Performed By: #### A NAD #### [facility] [address] [place] [address] Dr. Soo Donnelly Hemoglobin (Bld) [Mass/Vol] 14.6 g/dL Normal 12.0-16.0 [facility] Comment on above: Performed By: #### A NAD #### [facility] [address] [place] [address] Dr. Soo Donnelly IG # 0.01 10e3/ul Normal 0.00-0.03 [facility] Comment on above: Performed By: #### A NAD #### [facility] [address] [place] [address] Dr. Soo Donnelly IG % 0.1 % Normal 0.0-0.5 [facility] Comment on above: Performed By: #### A NAD #### [facility] [address] [place] [address] Dr. Soo Donnelly LYMPH # 2.7 103/ul Normal 1.2-3.8 [facility] Comment on above: Performed By: #### A NAD #### [facility] [address] [place] [address] Dr. Soo Donnelly Lymphocytes/100 WBC (Bld) 39.9 % Normal 20.5-60.0 [facility] Comment on above: Performed By: #### A NAD #### [facility] [address] [place] [address] Dr. Soo Donnelly MANUAL DIFF REQ NO Normal [facility] Comment on above: Performed By: #### A NAD #### [facility] [address] [place] [address] Dr. Soo Donnelly MCH (RBC) [Entitic mass] 31.7 pg Normal 26.7-34.0 [facility] Comment on above: Performed By: #### A NAD #### [facility] [address] [place] [address] Dr. Soo Donnelly MCHC (RBC) [Mass/Vol] 33.3 g/dL Normal 29.9-35.2 [facility] Comment on above: Performed By: #### A NAD #### [facility] [address] [place] [address] Dr. Soo Donnelly MCV (RBC) [Entitic vol] 95.4 fL Normal 81.0-99.0 [facility] Comment on above: Performed By: #### A NAD #### [facility] [address] [place] [address] Dr. Soo Donnelly MONO # 0.4 103/ul Normal 0.3-0.8 [facility] Comment on above: Performed By: #### A NAD #### [facility] [address] [place] [address] Dr. Soo Donnelly Monocytes/100 WBC (Bld) 5.9 % Normal 1.7-12.0 [facility] Comment on above: Performed By: #### A NAD #### [facility] [address] [place] [address] Dr. Soo Donnelly NEUT # 3.5 103/ul Normal 1.4-6.5 [facility] Comment on above: Performed By: #### A NAD #### [facility] [address] [place] [address] Dr. Soo Donnelly Neutrophils/100 WBC (Bld) 51.9 % Normal 43.0-75.0 [facility] Comment on above: Performed By: #### A NAD #### [facility] [address] [place] [address] Dr. Soo Donnelly Platelet mean volume (Bld) [Entitic vol] 10.8 fL Normal 9.5-13.5 [facility] Comment on above: Performed By: #### A NAD #### [facility] [address] [place] [address] Dr. Soo Donnelly PLT 220 103/ul Normal 150-450 [facility] Comment on above: Performed By: #### A NAD #### [facility] [address] [place] [address] Dr. Soo Donnelly RBC 4.60 106/ul Normal 4.20-5.40 [facility] Comment on above: Performed By: #### A NAD #### [facility] [address] [place] [address] Dr. Soo Donnelly WBC 6.8 103/ul Normal 4.0-11.0 [facility] Comment on above: Performed By: #### A NAD #### [facility] [address] [place] [address] Dr. Soo Donnelly ER URINE PROFILEon 2 Bilirubin Ql (U) Negative Normal NEGATIVE [facility] Comment on above: Performed By: #### U LG, CRP #### [facility] [address] [place] [address] Dr. Soo Donnelly Clarity (U) CLEAR Normal CLEAR [facility] Comment on above: Performed By: #### U LG, CRP #### [facility] [address] [place] [address] Dr. Soo Donnelly Color (U) LT. YELLOW Normal YELLOW [facility] Comment on above: Performed By: #### U LG, CRP #### [facility] [address] [place] [address] Dr. Soo Donnelly ERUAHD A micrscopic examina tion will be performed if indicated. Normal [facility] Comment on above: Performed By: #### U LG, CRP #### [facility] [address] [place] [address] Dr. Soo Donnelly Glucose Ql (U) Negative Normal NEGATIVE [facility] Comment on above: Performed By: #### U LG, CRP #### [facility] [address] [place] [address] Dr. Soo Donnelly Hemoglobin Ql (U) Negative Normal NEGATIVE [facility] Comment on above: Performed By: #### U LG, CRP #### [facility] [address] [place] [address] Dr. Soo Donnelly Ketones Ql (U) Negative Normal NEGATIVE [facility] Comment on above: Performed By: #### U LG, CRP #### [facility] [address] [place] [address] Dr. Soo Donnelly LEUKOCYTES Negative Normal NEGATIVE [facility] Comment on above: Performed By: #### U LG, CRP #### [facility] [address] [place] [address] Dr. Soo Donnelly Nitrite Ql (U) Negative Normal NEGATIVE [facility] Comment on above: Performed By: #### U LG, CRP #### [facility] [address] [place] [address] Dr. Soo Donnelly pH (U) 6.0 [pH] Normal 5-9 [facility] Comment on above: Performed By: #### U LG, CRP #### [facility] [address] [place] [address] Dr. Soo Donnelly SPEC GRAVITY 1.015 Normal 1.005-<=1. 025 [facility] Comment on above: Performed By: #### U LG, CRP #### [facility] [address] [place] [address] Dr. Soo Donnelly UA PROTEIN Negative Normal NEGATIVE/ TRACE [facility] Comment on above: Performed By: #### U LG, CRP #### [facility] [address] [place] [address] Dr. Soo Donnelly UR MICRO IND NOT INDICATED Normal [facility] Comment on above: Performed By: #### U LG, CRP #### [facility] [address] [address] [address] Soo Donnelly Urobilinogen Qn (U) 0.2 {Roma'U}/dL Normal 0.2 - 1. 0 [facility] Comment on above: Performed By: #### U LG, CRP #### [facility] [address] [place] [address] Dr. Soo Donnelly PROF CHEM 8 (BAS METB)on Anion gap [Moles/Vol] 10.2 mmol/L Normal [facility] Comment on above: Performed By: #### B MP #### [facility] [address] [place] [address] Dr. Soo Donnelly Calcium [Mass/Vol] 8.7 mg/dL Normal 8.5-10.1 [facility] Comment on above: Performed By: #### B MP #### [facility] [address] [place] [address] Dr. Soo Donnelly Chloride [Moles/Vol] 103 mmol/L Normal 98-107 [facility] Comment on above: Performed By: #### B MP #### [facility] [address] [place] [address] Dr. Soo Donnelly CO2 [Moles/Vol] 27.9 mmol/L Normal 21.0-32.0 [facility] Comment on above: Performed By: #### B MP #### [facility] [address] [place] [address] Dr. Soo Donnelly Creatinine [Mass/Vol] 0.80 mg/dL Normal 0.55-1.02 [facility] Comment on above: Performed By: #### B MP #### [facility] [address] [place] [address] Dr. Soo Donnelly EGFR-AF INDONESIAN >60 Normal >=60 [facility] Comment on above: Performed By: #### B MP #### [facility] [address] [place] [address] Dr. Soo Donnelly EGFR-NON AF INDONESIAN >60 Normal >=60 [facility] Comment on above: Performed By: #### B MP #### [facility] [address] [address] [address] Soo Donnelly Glucose [Mass/Vol] 103 mg/dL Normal 74-106 [facility] Comment on above: Performed By: #### B MP #### [facility] [address] [address] [address] Soo Donnelly Potassium [Moles/Vol] 4.1 mmol/L Normal 3.5-5.1 [facility] Comment on above: Performed By: #### B MP #### [facility] [address] [address] [address] Soo Donnelly Sodium [Moles/Vol] 137 mmol/L Normal 136-145 [facility] Comment on above: Performed By: #### B MP #### [facility] [address] [address] [address] Soo Donnelly Urea nitrogen [Mass/Vol] 11.0 mg/dL Normal 7.0-18.0 [facility] Comment on above: Performed By: #### B MP #### [facility] [address] [address] [address] Soo Donnelly Urea nitrogen/Creatinine [Mass ratio] 13.8 mg/mg Normal [facility] Comment on above: Performed By: #### B MP #### [facility] [address] [address] [address] Soo Donnelly XR KUB 1 VIEWon [...] ELENA SAUCEDA Date: 2022-09-18 12:12 Normal [facility] MG MAMM SCREEN 3D DEAN CADon 09-12-2022 MG MAMM SCREEN 3D DEAN CAD Patient: HORACIO KEATING Exam Date: 09/12/2022 : 1975 Gender:F Ordering : DR DELGADO MURILLO . Admission #: [id number] Family : Order #: [id number] CLICK HERE TO VIEW EXAM RADIOLOGY REPORT [...] 77. LOCATION: [facility] BREAST COMPOSITION: Scattered areas fibroglandular density. [...] MD on 09/13/2022 at 07:46 Normal [facility] INSULINon 07-20-2022 Insulin 25.5 uIU/mL Critically high 2.6-24.9 [facility] Comment on above: Performed By: #### U LG, CRP #### [facility] [address] [place] [address] Dr. Soo Donnelly T4 LABCORPon 07-20-2022 T4 [Mass/Vol] 7.4 ug/dL Normal 4.5-12.0 [facility] Comment on above: Performed By: #### A NAD #### [facility] [address] [place] [address] Dr. Soo Donnelly CBC W MANUAL DIFFon 07-19-20 22 ATYPICAL LYMPH # Normal [facility] Comment on above: Performed By: #### B UN, CREA #### [facility] [address] [place] [address] Dr. Soo Donnelly ATYPICAL LYMPH % Normal [facility] Comment on above: Performed By: #### B UN, CREA #### [facility] [address] [place] [address] Dr. Soo Donnelly BAND # Normal 0.0-0.3 [facility] Comment on above: Performed By: #### B UN, CREA #### [facility] [address] [place] [address] Dr. Soo Donnelly BAND % Normal 0-5 [facility] Comment on above: Performed By: #### B UN, CREA #### [facility] [address] [place] [address] Dr. Soo Donnelly BASOM # 0.00 103/ul Normal 0.00-0.10 [facility] Comment on above: Performed By: #### B UN, CREA #### [facility] [address] [place] [address] Dr. Soo Donnelly BASOM % 0.0 % Critically low 0.2-2.0 [facility] Comment on above: Performed By: #### B UN, CREA #### [facility] [address] [place] [address] Dr. Soo Donnelly BLAST # Normal [facility] Comment on above: Performed By: #### B UN, CREA #### [facility] [address] [place] [address] Dr. Soo Donnelly BLAST % Normal [facility] Comment on above: Performed By: #### B UN, CREA #### [facility] [address] [place] [address] Dr. Soo Donnelly CORRECTED WBC Normal 4.0-11.0 [facility] Comment on above: Performed By: #### B UN, CREA #### [facility] [address] [place] [address] Dr. Soo Donnelly EOS # 0.31 103/ul Normal 0.00-0.70 [facility] Comment on above: Performed By: #### B UN, CREA #### [facility] [address] [place] [address] Dr. Soo Donnelly EOS% 2.0 % Normal 0.9-7.0 [facility] Comment on above: Performed By: #### B UN, CREA #### [facility] [address] [place] [address] Dr. Soo Donnelly HCT 41.6 % Normal 36.0-48.0 [facility] Comment on above: Performed By: #### B UN, CREA #### [facility] [address] [place] [address] Dr. Soo Donnelly HGB 13.8 g/dl Normal 12.0-16.0 [facility] Comment on above: Performed By: #### B UN, CREA #### [facility] [address] [place] [address] Dr. Soo Donnelly LYMPHM # 5.27 103/ul Critically high 1.20-3.80 [facility] Comment on above: Performed By: #### B UN, CREA #### [facility] [address] [place] [address] Dr. Soo Donnelly LYMPHM% 34.0 % Normal 20.5-60.0 [facility] Comment on above: Performed By: #### B UN, CREA #### [facility] [address] [place] [address] Dr. Soo Donnelly MCH 31.5 pg Normal 26.7-34.0 [facility] Comment on above: Performed By: #### B UN, CREA #### [facility] [address] [place] [address] Dr. Soo Donnelly MCHC 33.2 g/dl Normal 29.9-35.2 [facility] Comment on above: Performed By: #### B UN, CREA #### [facility] [address] [place] [address] Dr. Soo Donnelly MCV 95.0 fL Normal 81.0-99.0 [facility] Comment on above: Performed By: #### B UN, CREA #### [facility] [address] [place] [address] Dr. Soo Donnelly METAMYELOCYTE # Normal [facility] Comment on above: Performed By: #### B UN, CREA #### [facility] [address] [place] [address] Dr. Soo Donnelly METAMYELOCYTE % Normal [facility] Comment on above: Performed By: #### B UN, CREA #### [facility] [address] [place] [address] Dr. Soo Donnelly MONOM# 0.93 103/ul Critically high 0.30-0.80 [facility] Comment on above: Performed By: #### B UN, CREA #### [facility] [address] [place] [address] Dr. Soo Donnelly MONOM% 6.0 % Normal 1.7-12.0 [facility] Comment on above: Performed By: #### B UN, CREA #### [facility] [address] [place] [address] Dr. Soo Donnelly MPV 10.1 fL Normal 9.5-13.5 [facility] Comment on above: Performed By: #### B UN, CREA #### [facility] [address] [place] [address] Dr. Soo Donnelly MYELOCYTE # Normal [facility] Comment on above: Performed By: #### B UN, CREA #### [facility] [address] [place] [address] Dr. Soo Donnelly MYELOCYTE % Normal [facility] Comment on above: Performed By: #### B UN, CREA #### [facility] [address] [place] [address] Dr. Soo Donnelly NRBC Normal [facility] Comment on above: Performed By: #### B UN, CREA #### [facility] [address] [place] [address] Dr. Soo Donnelly PLT 260 103/ul Normal 150-450 [facility] Comment on above: Performed By: #### B UN, CREA #### [facility] [address] [place] [address] Dr. Soo Donnelly RBC 4.38 106/ul Normal 4.20-5.40 [facility] Comment on above: Performed By: #### B UN, CREA #### [facility] [address] [place] [address] Dr. Soo Donnelly RDW 12.5 % Normal 11.0-15.0 [facility] Comment on above: Performed By: #### B UN, CREA #### [facility] [address] [place] [address] Dr. Soo Donnelly SEG # 8.99 103/ul Critically high 1.40-6.50 [facility] Comment on above: Performed By: #### B UN, CREA #### [facility] [address] [place] [address] Dr. Soo Donnelly SEG % 58.0 % Normal 43.0-75.0 [facility] Comment on above: Performed By: #### B UN, CREA #### [facility] [address] [place] [address] Dr. Soo Donnelly WBC 15.5 103/ul Critically high 4.0-11.0 [facility] Comment on above: Performed By: #### B UN, CREA #### [facility] [address] [place] [address] Dr. Soo Donnelly FREE T3on 07-19-2022 FREE T3 2.62 pg/mlL Normal 2.18-3.98 [facility] Comment on above: Performed By: #### U LG, CRP #### [facility] [address] [place] [address] Dr. Soo Donnelly GLYCOHEMOGLOBIN A1Con 2021 ADA RECOMMENDATION SEE BELOW Normal [facility] Comment on above: Result Comment: ADA RECOMMENDED LIMIT 4.0 - 6.0 ADA THERAPEUTIC TARGET < 7.0 ACTION SUGGESTED > 7.0 Performed By: #### U LG, CRP #### [facility] [address] [place] [address] Dr. Soo Donnelly Glucose [Mass/Vol] 137 mg/dL Normal [facility] Comment on above: Performed By: #### U LG, CRP #### [facility] [address] [address] [address] Soo Donnelly HbA1c (Bld) [Mass fraction] 6.4 % Critically high 4.5-6.2 [facility] Comment on above: Performed By: #### U LG, CRP #### [facility] [address] [address] [address] Soo Donnelly LIPID PROFILEon 07-19-2022 CHOL-HDL RATIO NORM SEE BELOW Normal [facility] Comment on above: Result Comment: 3.3 - 4.4 LOW RISK 4.4 - 7.1 AVERAGE RISK 7.1 - 11.0 MODERATE RISK >11.0 HIGH RISK Performed By: #### U LG, CRP #### [facility] [address] [address] [address] Soo Donnelly Cholesterol [Mass/Vol] 226 mg/dL Critically high <=200 [facility] Comment on above: Performed By: #### U LG, CRP #### [facility] [address] [address] [address] Soo Donnelly Cholesterol in HDL [Mass/Vol] 33 mg/dL Critically low 40-60 [facility] Comment on above: Performed By: #### U LG, CRP #### [facility] [address] [address] [address] Soo Donnelly Cholesterol in LDL [Mass/Vol] 135.2 mg/dL Normal [facility] Comment on above: Performed By: #### U LG, CRP #### [facility] [address] [address] [address] Soo Donnelly Cholesterol.total/Chol esterol in HDL [Mass ratio] 6.8 {ratio} Normal [facility] Comment on above: Performed By: #### U LG, CRP #### [facility] [address] [address] [address] Soo Donnelly HDL NORMAL > or = 60 mg/dl - LO W CARDIOVASCULAR RISK <40 mg/dl - HIGH CARDIOVASCULAR RISK Normal [facility] Comment on above: Performed By: #### U LG, CRP #### [facility] [address] [address] [address] Soo Donnelly LDL CALC NORMAL SEE BELOW Normal [facility] Comment on above: Result Comment: <100 mg/dl OPTIMAL 100 - 129 mg/dl NEAR OR ABOVE OPTIMAL 130 - 159 mg/dl BORDERLINE HIGH 160 - 189 mg/dl HIGH >190 mg/dl VERY HIGH Performed By: #### U LG, CRP #### [facility] [address] [address] [address] Soo Donnelly Triglyceride [Mass/Vol] 289 mg/dL Critically high <=150 [facility] Comment on above: Performed By: #### U LG, CRP #### [facility] [address] [address] [address] Soo Donnelly VLDL CALC 57.8 mg/dL Normal [facility] Comment on above: Performed By: #### U LG, CRP #### [facility] [address] [address] [address] Soo Donnelly PROF 14(COMP METB)on 022 Albumin [Mass/Vol] 3.2 g/dL Critically low 3.4-5.0 [facility] Comment on above: Performed By: #### U LG, CRP #### [facility] [address] [address] [address] Soo Donnelly Albumin/Globulin [Mass ratio] 1.1 {ratio} Normal [facility] Comment on above: Performed By: #### U LG, CRP #### [facility] [address] [address] [address] Soo Donnelly ALP [Catalytic activity/Vol] 41 U/L Critically low 46-116 [facility] Comment on above: Performed By: #### U LG, CRP #### [facility] [address] [address] [address] Soo Donnelly ALT [Catalytic activity/Vol] 46 U/L Normal 14-59 [facility] Comment on above: Performed By: #### U LG, CRP #### [facility] [address] [address] [address] Soo Donnelly Anion gap [Moles/Vol] 9.3 mmol/L Normal [facility] Comment on above: Performed By: #### U LG, CRP #### [facility] [address] [address] [address] Soo Donnelly AST [Catalytic activity/Vol] 18 U/L Normal 15-37 [facility] Comment on above: Performed By: #### U LG, CRP #### [facility] [address] [address] [address] Soo Donnelly Bilirubin [Mass/Vol] 0.7 mg/dL Normal 0.2-1.0 [facility] Comment on above: Performed By: #### U LG, CRP #### [facility] [address] [address] [address] Soo Donnelly Calcium [Mass/Vol] 8.1 mg/dL Critically low 8.5-10.1 [facility] Comment on above: Performed By: #### U LG, CRP #### [facility] [address] [address] [address] Soo Donnelly Chloride [Moles/Vol] 101 mmol/L Normal 98-107 [facility] Comment on above: Performed By: #### U LG, CRP #### [facility] [address] [address] [address] Soo Donnelly CO2 [Moles/Vol] 31.1 mmol/L Normal 21.0-32.0 [facility] Comment on above: Performed By: #### U LG, CRP #### [facility] [address] [address] [address] Soo Donnelly Creatinine [Mass/Vol] 0.77 mg/dL Normal 0.55-1.02 [facility] Comment on above: Performed By: #### U LG, CRP #### [facility] [address] [address] [address] Soo Donnelly EGFR-AF INDONESIAN >60 Normal >=60 [facility] Comment on above: Performed By: #### U LG, CRP #### [facility] [address] [place] [address] Dr. Soo Donnelly EGFR-NON AF INDONESIAN >60 Normal >=60 [facility] Comment on above: Performed By: #### U LG, CRP #### [facility] [address] [address] [address] Soo Donnelly Globulin (S) [Mass/Vol] 3.0 g/dL Normal [facility] Comment on above: Performed By: #### U LG, CRP #### [facility] [address] [place] [address] Dr. Soo Donnelly Glucose [Mass/Vol] 104 mg/dL Normal 74-106 [facility] Comment on above: Performed By: #### U GL, CRP #### [facility] [address] [address] [address] Soo Donnelly Potassium [Moles/Vol] 3.4 mmol/L Critically low 3.5-5.1 [facility] Comment on above: Performed By: #### U LG, CRP #### [facility] [address] [place] [address] Dr. Soo Donnelly Protein [Mass/Vol] 6.2 g/dL Critically low 6.4-8.2 [facility] Comment on above: Performed By: #### U LG, CRP #### [facility] [address] [place] [address] Dr. Soo Donnelly Sodium [Moles/Vol] 138 mmol/L Normal 136-145 [facility] Comment on above: Performed By: #### U LG, CRP #### [facility] [address] [place] [address] Dr. Soo Donnelly Urea nitrogen [Mass/Vol] 16.0 mg/dL Normal 7.0-18.0 [facility] Comment on above: Performed By: #### U LG, CRP #### [facility] [address] [place] [address] Dr. Soo Donnelly Urea nitrogen/Creatinine [Mass ratio] 20.8 mg/mg Normal [facility] Comment on above: Performed By: #### U LG, CRP #### [facility] [address] [place] [address] Dr. Soo Donnelly TSHon 07-19-2022 TSH 3.262 uIU/mL Normal 0.358-3.74 0 [facility] Comment on above: Performed By: #### U LG, CRP #### [facility] [address] [address] [address] Soo Donnelly CBC AUTO DIFFon 05-18-2022 BASO # 0.0 103/ul Normal 0.0-0.1 [facility] Comment on above: Performed By: #### U LG, CRP #### [facility] [address] [address] [address] Soo Donnelly Basophils/100 WBC (Bld) 0.2 % Normal 0.2-2.0 [facility] Comment on above: Performed By: #### U LG, CRP #### [facility] [address] [place] [address] Dr. Soo Donnelly EO # 0.0 103/ul Normal 0.0-0.7 [facility] Comment on above: Performed By: #### U LG, CRP #### [facility] [address] [place] [address] Dr. Soo Donnelly Eosinophils/100 WBC (Bld) 0.2 % Critically low 0.9-7.0 [facility] Comment on above: Performed By: #### U LG, CRP #### [facility] [address] [address] [address] Soo Donnelly Erythrocyte distribution width (RBC) [Ratio] 12.8 % Normal 11.0-15.0 [facility] Comment on above: Performed By: #### U LG, CRP #### [facility] [address] [address] [address] Soo Donnelly Hematocrit (Bld) [Volume fraction] 35.7 % Critically low 36.0-48.0 [facility] Comment on above: Performed By: #### U LG, CRP #### [facility] [address] [place] [address] Dr. Soo Donnelly Hemoglobin (Bld) [Mass/Vol] 11.5 g/dL Critically low 12.0-16.0 [facility] Comment on above: Performed By: #### U LG, CRP #### [facility] [address] [place] [address] Dr. Soo Donnelly IG # 0.07 10e3/ul Critically high 0.00-0.03 [facility] Comment on above: Performed By: #### U LG, CRP #### [facility] [address] [place] [address] Dr. Soo Donnelly IG % 0.5 % Normal 0.0-0.5 [facility] Comment on above: Performed By: #### U LG, CRP #### [facility] [address] [address] [address] Soo Donnelly LYMPH # 4.1 103/ul Critically high 1.2-3.8 [facility] Comment on above: Performed By: #### U LG, CRP #### [facility] [address] [place] [address] Dr. Soo Donnelly Lymphocytes/100 WBC (Bld) 28.3 % Normal 20.5-60.0 [facility] Comment on above: Performed By: #### U LG, CRP #### [facility] [address] [place] [address] Dr. Soo Donnelly MANUAL DIFF REQ NO Normal [facility] Comment on above: Performed By: #### U LG, CRP #### [facility] [address] [place] [address] Dr. Soo Donnelly MCH (RBC) [Entitic mass] 31.7 pg Normal 26.7-34.0 [facility] Comment on above: Performed By: #### U LG, CRP #### [facility] [address] [place] [address] Dr. Soo Donnelly MCHC (RBC) [Mass/Vol] 32.2 g/dL Normal 29.9-35.2 [facility] Comment on above: Performed By: #### U LG, CRP #### [facility] [address] [place] [address] Dr. Soo Donnelly MCV (RBC) [Entitic vol] 98.3 fL Normal 81.0-99.0 [facility] Comment on above: Performed By: #### U LG, CRP #### [facility] [address] [place] [address] Dr. Soo Donnelly MONO # 0.8 103/ul Normal 0.3-0.8 [facility] Comment on above: Performed By: #### U LG, CRP #### [facility] [address] [place] [address] Dr. Soo Donnelly Monocytes/100 WBC (Bld) 5.6 % Normal 1.7-12.0 [facility] Comment on above: Performed By: #### U LG, CRP #### [facility] [address] [place] [address] Dr. Soo Donnelly NEUT # 9.4 103/ul Critically high 1.4-6.5 [facility] Comment on above: Performed By: #### U LG, CRP #### [facility] [address] [place] [address] Dr. Soo Donnelly Neutrophils/100 WBC (Bld) 65.2 % Normal 43.0-75.0 [facility] Comment on above: Performed By: #### U LG, CRP #### [facility] [address] [place] [address] Dr. Soo Donnelly Platelet mean volume (Bld) [Entitic vol] 10.8 fL Normal 9.5-13.5 [facility] Comment on above: Performed By: #### U LG, CRP #### [facility] [address] [place] [address] Dr. Soo Donnelly PLT 191 103/ul Normal 150-450 [facility] Comment on above: Performed By: #### U LG, CRP #### [facility] [address] [place] [address] Dr. Soo Donnelly RBC 3.63 106/ul Critically low 4.20-5.40 [facility] Comment on above: Performed By: #### U LG, CRP #### [facility] [address] [place] [address] Dr. Soo Donnelly WBC 14.4 103/ul Critically high 4.0-11.0 [facility] Comment on above: Performed By: #### U LG, CRP #### [facility] [address] [place] [address] Dr. Soo Burdick 05-17-2022 Urea nitrogen [Mass/Vol] 8.0 mg/dL Normal 7.0-18.0 [facility] Comment on above: Performed By: #### B UN, CREA #### [facility] [address] [place] [address] Dr. Soo Donnelly CBC AUTO DIFFon 05-17-2022 BASO # 0.0 103/ul Normal 0.0-0.1 [facility] Comment on above: Performed By: #### U LG, CRP #### [facility] [address] [place] [address] Dr. Soo Donnelly Basophils/100 WBC (Bld) 0.1 % Critically low 0.2-2.0 [facility] Comment on above: Performed By: #### U LG, CRP #### [facility] [address] [place] [address] Dr. Soo Donnelly EO # 0.0 103/ul Normal 0.0-0.7 [facility] Comment on above: Performed By: #### U LG, CRP #### [facility] [address] [place] [address] Dr. Soo Donnelly Eosinophils/100 WBC (Bld) 0.0 % Critically low 0.9-7.0 [facility] Comment on above: Performed By: #### U LG, CRP #### [facility] [address] [place] [address] Dr. Soo Donnelly Erythrocyte distribution width (RBC) [Ratio] 12.5 % Normal 11.0-15.0 [facility] Comment on above: Performed By: #### U LG, CRP #### [facility] [address] [place] [address] Dr. Soo Donnelly Hematocrit (Bld) [Volume fraction] 38.5 % Normal 36.0-48.0 [facility] Comment on above: Performed By: #### U LG, CRP #### [facility] [address] [place] [address] Dr. Soo Donnelly Hemoglobin (Bld) [Mass/Vol] 13.0 g/dL Normal 12.0-16.0 [facility] Comment on above: Performed By: #### U LG, CRP #### [facility] [address] [address] [address] Soo Donnelly IG # 0.16 10e3/ul Critically high 0.00-0.03 [facility] Comment on above: Performed By: #### U LG, CRP #### [facility] [address] [place] [address] Dr. Soo Donnelly IG % 0.7 % Critically high 0.0-0.5 [facility] Comment on above: Performed By: #### U LG, CRP #### [facility] [address] [address] [address] Soo Donnelly LYMPH # 3.0 103/ul Normal 1.2-3.8 [facility] Comment on above: Performed By: #### U LG, CRP #### [facility] [address] [place] [address] Dr. Soo Donnelly Lymphocytes/100 WBC (Bld) 12.2 % Critically low 20.5-60.0 [facility] Comment on above: Performed By: #### U LG, CRP #### [facility] [address] [place] [address] Dr. Soo Donnelly MANUAL DIFF REQ NO Normal [facility] Comment on above: Performed By: #### U LG, CRP #### [facility] [address] [place] [address] Dr. Soo Donnelly MCH (RBC) [Entitic mass] 32.4 pg Normal 26.7-34.0 [facility] Comment on above: Performed By: #### U LG, CRP #### [facility] [address] [place] [address] Dr. Soo Donnelly MCHC (RBC) [Mass/Vol] 33.8 g/dL Normal 29.9-35.2 [facility] Comment on above: Performed By: #### U LG, CRP #### [facility] [address] [place] [address] Dr. Soo Dnonelly MCV (RBC) [Entitic vol] 96.0 fL Normal 81.0-99.0 [facility] Comment on above: Performed By: #### U LG, CRP #### [facility] [address] [address] [address] oSo Donnelly MONO # 1.3 103/ul Critically high 0.3-0.8 [facility] Comment on above: Performed By: #### U LG, CRP #### [facility] [address] [address] [address] Soo Donnelly Monocytes/100 WBC (Bld) 5.4 % Normal 1.7-12.0 [facility] Comment on above: Performed By: #### U LG, CRP #### [facility] [address] [address] [address] Soo Donnelly NEUT # 19.8 103/ul Critically high 1.4-6.5 [facility] Comment on above: Performed By: #### U LG, CRP #### [facility] [address] [place] [address] Dr. Soo Donnelly Neutrophils/100 WBC (Bld) 81.6 % Critically high 43.0-75.0 [facility] Comment on above: Performed By: #### U LG, CRP #### [facility] [address] [address] [address] Soo Donnelly Platelet mean volume (Bld) [Entitic vol] 10.5 fL Normal 9.5-13.5 [facility] Comment on above: Performed By: #### U LG, CRP #### [facility] [address] [address] [address] Soo Donnelly PLT 253 103/ul Normal 150-450 [facility] Comment on above: Performed By: #### U LG, CRP #### [facility] [address] [place] [address] Dr. Soo Donnelly RBC 4.01 106/ul Critically low 4.20-5.40 [facility] Comment on above: Performed By: #### U LG, CRP #### [facility] [address] [address] [address] Soo Donnelly WBC 24.3 103/ul Critically high 4.0-11.0 [facility] Comment on above: Performed By: #### U LG, CRP #### [facility] [address] [address] [address] Soo KRISHNAMURTHY # 0.0 103/ul Normal 0.0-0.1 [facility] Comment on above: Performed By: #### U LG, CRP #### [facility] [address] [address] [address] Soo Donnelly Basophils/100 WBC (Bld) 0.1 % Critically low 0.2-2.0 [facility] Comment on above: Performed By: #### U LG, CRP #### [facility] [address] [place] [address] Dr. Soo Donnelly EO # 0.0 103/ul Normal 0.0-0.7 [facility] Comment on above: Performed By: #### U LG, CRP #### [facility] [address] [place] [address] Dr. Soo Donnelly Eosinophils/100 WBC (Bld) 0.0 % Critically low 0.9-7.0 [facility] Comment on above: Performed By: #### U LG, CRP #### [facility] [address] [address] [address] Soo Donnelly Erythrocyte distribution width (RBC) [Ratio] 12.3 % Normal 11.0-15.0 [facility] Comment on above: Performed By: #### U LG, CRP #### [facility] [address] [address] [address] Soo Donnelly Hematocrit (Bld) [Volume fraction] 41.2 % Normal 36.0-48.0 [facility] Comment on above: Performed By: #### U LG, CRP #### [facility] [address] [place] [address] Dr. Soo Donnelly Hemoglobin (Bld) [Mass/Vol] 13.5 g/dL Normal 12.0-16.0 [facility] Comment on above: Performed By: #### U LG, CRP #### [facility] [address] [address] [address] Soo Donnelly IG # 0.11 10e3/ul Critically high 0.00-0.03 [facility] Comment on above: Performed By: #### U LG, CRP #### [facility] [address] [place] [address] Dr. Soo Donnelly IG % 0.5 % Normal 0.0-0.5 [facility] Comment on above: Performed By: #### U LG, CRP #### [facility] [address] [address] [address] Soo Donnelly LYMPH # 1.6 103/ul Normal 1.2-3.8 [facility] Comment on above: Performed By: #### U LG, CRP #### [facility] [address] [place] [address] Dr. Soo Donnelly Lymphocytes/100 WBC (Bld) 7.8 % Critically low 20.5-60.0 [facility] Comment on above: Performed By: #### U LG, CRP #### [facility] [address] [place] [address] Dr. Soo Donnelly MANUAL DIFF REQ NO Normal [facility] Comment on above: Performed By: #### U LG, CRP #### [facility] [address] [address] [address] Soo Donnelly MCH (RBC) [Entitic mass] 31.8 pg Normal 26.7-34.0 [facility] Comment on above: Performed By: #### U LG, CRP #### [facility] [address] [place] [address] Dr. Soo Donnelly MCHC (RBC) [Mass/Vol] 32.8 g/dL Normal 29.9-35.2 [facility] Comment on above: Performed By: #### U LG, CRP #### [facility] [address] [place] [address] Dr. Soo Donnelly MCV (RBC) [Entitic vol] 96.9 fL Normal 81.0-99.0 [facility] Comment on above: Performed By: #### U LG, CRP #### [facility] [address] [place] [address] Dr. Soo Donnelly MONO # 0.4 103/ul Normal 0.3-0.8 [facility] Comment on above: Performed By: #### U LG, CRP #### [facility] [address] [place] [address] Dr. Soo Donnelly Monocytes/100 WBC (Bld) 2.0 % Normal 1.7-12.0 [facility] Comment on above: Performed By: #### U LG, CRP #### [facility] [address] [place] [address] Dr. Soo Donnelly NEUT # 18.1 103/ul Critically high 1.4-6.5 [facility] Comment on above: Performed By: #### U LG, CRP #### [facility] [address] [place] [address] Dr. Soo Donnelly Neutrophils/100 WBC (Bld) 89.6 % Critically high 43.0-75.0 [facility] Comment on above: Performed By: #### U LG, CRP #### [facility] [address] [place] [address] Dr. Soo Donnelly Platelet mean volume (Bld) [Entitic vol] 11.0 fL Normal 9.5-13.5 [facility] Comment on above: Performed By: #### U LG, CRP #### [facility] [address] [place] [address] Dr. Soo Donnelly PLT 223 103/ul Normal 150-450 [facility] Comment on above: Performed By: #### U LG, CRP #### [facility] [address] [place] [address] Dr. Soo Donnelly RBC 4.25 106/ul Normal 4.20-5.40 [facility] Comment on above: Performed By: #### U LG, CRP #### [facility] [address] [place] [address] Dr. Soo Donnelly WBC 20.2 103/ul Critically high 4.0-11.0 [facility] Comment on above: Performed By: #### U LG, CRP #### [facility] [address] [place] [address] Dr. Soo Donnelly CREATININEon 06-17-2022 Creatinine [Mass/Vol] 0.97 mg/dL Normal 0.55-1.02 [facility] Comment on above: Performed By: #### B UN, CREA #### [facility] [address] [address] [address] Soo Donnelly EGFR-AF INDONESIAN >60 Normal >=60 [facility] Comment on above: Performed By: #### B UN, CREA #### [facility] [address] [address] [address] Soo Donnelly EGFR-NON AF INDONESIAN >60 Normal >=60 [facility] Comment on above: Performed By: #### B UN, CREA #### [facility] [address] [address] [address] Soo Donnelly CTA CHEST WO W [...] LUZ ELENA SAUCEDA Date: 2022-05-17 16:40 Normal [facility] XR CHEST 2 Von 05-17-2022 XR CHEST [...] disease is seen. Electronically authenticated by: SAMI READER Date: 2022-05-17 16:10 Normal [facility] CBC AUTO DIFFon 05-16-2022 BASO # 0.1 103/ul Normal 0.0-0.1 [facility] Comment on above: Performed By: #### B UN, CREA #### [facility] [address] [place] [address] Dr. Soo Donnelly Basophils/100 WBC (Bld) 0.5 % Normal 0.2-2.0 [facility] Comment on above: Performed By: #### B JOANNA, CREA #### [facility] [address] [place] [address] Dr. Soo Donnelly EO # 0.1 103/ul Normal 0.0-0.7 [facility] Comment on above: Performed By: #### B JOANNA, CREA #### [facility] [address] [place] [address] Dr. Soo Donnelly Eosinophils/100 WBC (Bld) 1.0 % Normal 0.9-7.0 [facility] Comment on above: Performed By: #### B JOANNA, CREA #### [facility] [address] [place] [address] Dr. Soo Donnelly Erythrocyte distribution width (RBC) [Ratio] 12.2 % Normal 11.0-15.0 [facility] Comment on above: Performed By: #### B UN, CREA #### [facility] [address] [place] [address] Dr. Soo Donnelly Hematocrit (Bld) [Volume fraction] 41.2 % Normal 36.0-48.0 [facility] Comment on above: Performed By: #### B UN, CREA #### [facility] [address] [place] [address] Dr. Soo Donnelly Hemoglobin (Bld) [Mass/Vol] 13.9 g/dL Normal 12.0-16.0 [facility] Comment on above: Performed By: #### B UN, CREA #### [facility] [address] [place] [address] Dr. Soo Donnelly IG # 0.04 10e3/ul Critically high 0.00-0.03 [facility] Comment on above: Performed By: #### B UN, CREA #### [facility] [address] [place] [address] Dr. Soo Donnelly IG % 0.4 % Normal 0.0-0.5 [facility] Comment on above: Performed By: #### B UN, CREA #### [facility] [address] [place] [address] Dr. Soo Donnelly LYMPH # 3.5 103/ul Normal 1.2-3.8 [facility] Comment on above: Performed By: #### B UN, CREA #### [facility] [address] [place] [address] Dr. Soo Donnelly Lymphocytes/100 WBC (Bld) 35.3 % Normal 20.5-60.0 [facility] Comment on above: Performed By: #### B UN, CREA #### [facility] [address] [place] [address] Dr. Soo Donnelly MANUAL DIFF REQ NO Normal [facility] Comment on above: Performed By: #### B UN, CREA #### [facility] [address] [place] [address] Dr. Soo Donnelly MCH (RBC) [Entitic mass] 31.7 pg Normal 26.7-34.0 [facility] Comment on above: Performed By: #### B UN, CREA #### [facility] [address] [place] [address] Dr. Soo Donnelly MCHC (RBC) [Mass/Vol] 33.7 g/dL Normal 29.9-35.2 [facility] Comment on above: Performed By: #### B UN, CREA #### [facility] [address] [place] [address] Dr. Soo Donnelly MCV (RBC) [Entitic vol] 94.1 fL Normal 81.0-99.0 [facility] Comment on above: Performed By: #### B UN, CREA #### [facility] [address] [place] [address] Dr. Soo Donnelly MONO # 0.5 103/ul Normal 0.3-0.8 [facility] Comment on above: Performed By: #### B UN, CREA #### [facility] [address] [place] [address] Dr. Soo Donnelly Monocytes/100 WBC (Bld) 5.4 % Normal 1.7-12.0 [facility] Comment on above: Performed By: #### B UN, CREA #### [facility] [address] [place] [address] Dr. Soo Donnelly NEUT # 5.6 103/ul Normal 1.4-6.5 [facility] Comment on above: Performed By: #### B UN, CREA #### [facility] [address] [place] [address] Dr. Soo Donnelly Neutrophils/100 WBC (Bld) 57.4 % Normal 43.0-75.0 [facility] Comment on above: Performed By: #### B UN, CREA #### [facility] [address] [place] [address] Dr. Soo Donnelly Platelet mean volume (Bld) [Entitic vol] 10.3 fL Normal 9.5-13.5 [facility] Comment on above: Performed By: #### B UN, CREA #### [facility] [address] [place] [address] Dr. Soo Donnelly PLT 235 103/ul Normal 150-450 [facility] Comment on above: Performed By: #### B UN, CREA #### [facility] [address] [place] [address] Dr. Soo Donnelly RBC 4.38 106/ul Normal 4.20-5.40 [facility] Comment on above: Performed By: #### B UN, CREA #### [facility] [address] [address] [address] Soo Donnelly WBC 9.8 103/ul Normal 4.0-11.0 [facility] Comment on above: Performed By: #### B UN, CREA #### [facility] [address] [address] [address] Soo Donnelly PREG QUANT HCGon 05-16-2022 HCG QUANT <1 Normal [facility] Comment on above: Performed By: #### U LG, CRP #### [facility] [address] [address] [address] Soo Donnelly HCG RANGE SEE BELOW Normal [facility] Comment on above: Result Comment: 5-50 0-1 WEEK 40-300 1-2 WEEKS 100-1,000 2-3 WEEKS 500-6,000 3-4 WEEKS 5,000-200,000 1-2 MONTHS 10,000-100,000 2-3 MONTHS 3,000-50,000 2ND TRIMESTER 1,000-50,000 3RD TRIMESTER Performed By: #### U LG, CRP #### [facility] [address] [address] [address] Soo Donnelly Covid-19 PCR (CVDTB)on 05-01 SARS-CoV-2 (COVID-19) RNA NOLA+probe Ql (Unsp spec) Not detected Normal NOT DETECTED [facility] Comment on above: Result Comment: This test is not yet approved or cleared by the [place] FDA. When there are no FDA-approved or cleared tests available, and other criteria are met, FDA can make tests available under an emergency access mechanism called an Emergency Use Authorization (EUA). The EUA for this test is supported by the It Corporate Recruiter of Health and Human Service's (HHS's) declaration [...] SARS-CoV-2. Performed By: #### C VDTB #### [facility] [address] [place] [address] Dr. Soo Donnelly TYPE AND SCREENon 05-13-2022 TYPE AND SCREEN Negative Normal [facility] Comment on above: Performed By: #### B UN, CREA #### [facility] [address] [place] [address] Dr. Soo Donnelly PAP ACOG PANEL 2: 30 to 65on 05-07-2022 . . Normal [facility] Comment on above: Result Comment: Perf ormed at: WB Performed By: #### [id number] #### [facility] [address] [place] [address] Dr. Soo Donnelly Age Gdln ACOG Testing 30-65 Normal [facility] Comment on above: Performed By: #### [id number] #### [facility] [address] [place] [address] Dr. Soo Donnelly DIAGNOSIS: Comment Normal [facility] Comment on above: Result Comment: NEGA TIVE FOR INTRAEPITHELIAL LESION OR MALIGNANCY. Performed at: WB Performed By: #### [id number] #### [facility] [address] [place] [address] Dr. Soo Donnelly HPV Aptima Negative Normal Negative [facility] Comment on above: Result Comment: This nucleic acid amplification test detects fourteen high-risk HPV types (16,18,31,33,35,39,45,51,52,56,58,59,66,68) without differentiation. Performed at: =G Performed By: #### [id number] #### [facility] [address] [place] [address] Dr. Soo Donnelly Methodology: Comment Normal [facility] Comment on above: Result Comment: This liquid based ThinPrep(R) pap test was screened with the use of an image guided system. Performed at: WB Performed By: #### [id number] #### [facility] [address] [place] [address] Dr. Soo Donnelly Note: Comment Normal [facility] [...] Performed at: WB Performed By: #### [id number] #### [facility] [address] [place] [address] Dr. Soo Donnelly Performed by: Comment Normal [facility] Comment on above: Result Comment: Angel Rod, Training Systems Officer (ASCP) Performed at: WB Performed By: #### [id number] #### [facility] [address] [place] [address] Dr. Soo Donnelly Specimen adequacy: Comment Normal [facility] Comment on above: Result Comment: Sati sfactory for evaluation. Endocervical and/or squamous metaplastic cells (endocervical component) are present. Performed at: WB Performed By: #### [id number] #### [facility] [address] [place] [address] Dr. Soo Donnelly ROSS by IFAon 02-21-2022 Antinuclear Antibodies, IFA Negative [facility] Comment on above: Result Comment: Nega tive <1:80 Borderline 1:80 Positive >1:80 ICAP nomenclature: AC-0 For more information about Hep-2 cell patterns use ANApatterns.org, the official website for the International Consensus on Antinuclear Antibody (ROSS) Patterns (ICAP). Performed By: #### U LG, CRP #### [facility] [address] [place] [address] Dr. Soo Donnelly ROSS DIRECTon 02-20-2022 ROSS Direct Negative Normal Negative [facility] Comment on above: Performed By: #### A NAD #### [facility] [address] [place] [address] Dr. Soo Donnelly ANTISTREPTOLYSIN O AB (ASO)o n 02-20-2022 Antistreptolysin O Ab 115.3 IU/mL Normal 0.0-200.0 [facility] Comment on above: Performed By: #### B UN, CREA #### [facility] [address] [address] [address] Soo Donnelly C3 and C4 COMPLEMENTon 02-20 Complement C3, Serum 137 mg/dL Normal 82-167 [facility] Comment on above: Performed By: #### U LG, CRP #### [facility] [address] [address] [address] Soo Donnelly Complement C4, Serum 23 mg/dL Normal 12-38 [facility] Comment on above: Performed By: #### U LG, CRP #### [facility] [address] [address] [address] Soo Donnelly SLE PROFILE Aon 02-20-2022 Anti-DNA (DS) Ab Qn <1 Normal 0-9 [facility] Comment on above: Result Comment: Nega tive <5 Equivocal 5 - 9 Positive >9 Performed By: #### S YARI #### [facility] [address] [place] [address] Dr. Soo Donnelly Antichromatin Antibodies <0.2 Normal 0.0-0.9 [facility] Comment on above: Performed By: #### S YARI #### [facility] [address] [place] [address] Dr. Soo Donnelly RA Latex Turbid. <10.0 Normal <14.0 [facility] Comment on above: Performed By: #### S YARI #### [facility] [address] [address] [address] Soo Donnelly RENTAL CLERK TOOL AND EQUIPMENT Antibodies <0.2 Normal 0.0-0.9 [facility] Comment on above: Performed By: #### S YARI #### [facility] [address] [place] [address] Dr. Soo Donnelly Sjogrdaniela'neel Anti-SS-A <0.2 Normal 0.0-0.9 [facility] Comment on above: Performed By: #### S YARI #### [facility] [address] [address] [address] Yilan Donnelly Sjogren's Anti-SS-B <0.2 Normal 0.0-0.9 [facility] Comment on above: Performed By: #### S YARI #### [facility] [address] [place] [address] Dr. Soo Donnelly Spann Antibodies <0.2 Normal 0.0-0.9 [facility] Comment on above: Performed By: #### S YARI #### [facility] [address] [place] [address] Dr. Soo Donnelly CRPon 02-19-2022 CRP [Mass/Vol] mg/L Normal <=1.0 [facility] Comment on above: Performed By: #### U LG, CRP #### [facility] [address] [place] [address] Dr. Soo Donnelly URIC ACID SERUMon 02-19-2022 Urate [Mass/Vol] 4.7 mg/dL Normal 2.5-6.2 [facility] Comment on above: Performed By: #### U LG, CRP #### [facility] [address] [place] [address] Dr. Soo Donnelly XR CSPINE MIN 4 [...] ABIGAIL GONSALVES Date: 2022-02-19 16:33 Normal [facility] XR HAND DEAN MIN 3Von 022 [...] ABIGAIL GONSALVES Date: 2022-02-19 16:28 Normal [facility] ASYMPTOMATIC COVID-19 ANTIGE Non 12-04-2021 EUA Statement SEE BELOW Normal [facility] Comment on above: Result Comment: This [...] sooner. Performed By: #### C VDAGA #### [facility] [address] [place] [address] Dr. Soo Donnelly SARS-CoV-2 (COVID-19) RNA NOLA+probe Ql (Unsp spec) Negative Normal NEGATIVE [facility] Comment on above: Result Comment: Nega tive results are presumptive. They do not preclude infection and should not be used as the sole basis for treatment decisions. Additional confirmatory testing by a molecular method should be considered. Performed By: #### C VDAGA #### [facility] [address] [place] [address] Dr. Soo Donnelly Covid-19 PCR (CVDTB)on SARS-CoV-2 (COVID-19) RNA NOLA+probe Ql (Unsp spec) Not detected Normal NOT DETECTED [facility] Comment on above: Result Comment: This test is not yet approved or cleared by the [place] FDA. When there are no FDA-approved or cleared tests available, and other criteria are met, FDA can make tests available under an emergency access mechanism called an Emergency Use Authorization (EUA). The EUA for this test is supported by the It Corporate Recruiter of Health and Human Service's (HHS's) declaration [...] Performed By: #### U LG, CRP #### [facility] [address] [place] [address] Dr. Soo Donnelly Vital Signs Date Time Vital Sign Value Performing Clinician Facility 02-03-2025 08:24-0500 Body height 167.6 cm Tiesha Martinezgiselr PRODUCTION RECOVERY OPERATOR Work Phone: [facility] 02-03-2025 08:24-0500 Body mass index (BMI) [Ratio] 29.7 kg/m2 Tiesha Vernonr PRODUCTION RECOVERY OPERATOR Work Phone: [facility] 02-03-2025 08:24-0500 Body weight 83.46 kg Tiesha Vernonr PRODUCTION RECOVERY OPERATOR Work Phone: [facility] 02-03-2025 08:24-0500 Diastolic blood pressure 76 mm[Hg] Tiesha Martinezmor PRODUCTION RECOVERY OPERATOR Work Phone: [facility] 02-03-2025 08:24-0500 Heart rate 75 /min Tiesha Martinezgiselr PRODUCTION RECOVERY OPERATOR Work Phone: [facility] 02-03-2025 08:24-0500 SaO2% (BldA) [Mass fraction] 97 % Tiesha Michellegiselr PRODUCTION RECOVERY OPERATOR Work Phone: [facility] 02-03-2025 08:24-0500 Systolic blood pressure 128 mm[Hg] Tiesha Hughes PRODUCTION RECOVERY OPERATOR Work Phone: [facility] 11-22-2024 13:21-0500 Body mass index (BMI) [Ratio] 28.66 kg/m2 Delgado Lidia DO Work Phone: [facility] 11-22-2024 13:21-0500 Body weight 83.01 kg Delgado Lidia DO Work Phone: [facility] 11-22-2024 13:21-0500 Diastolic blood pressure 80 mm[Hg] Delgado Lidia DO Work Phone: [facility] 11-22-2024 13:21-0500 Systolic blood pressure 128 mm[Hg] Delgado Lidia DO Work Phone: [facility] 11-01-2024 14:30-0500 Blood Pressure Location Mohshireen Baltazar [facility] 11-01-2024 14:30-0500 Diastolic blood pressure 74 mm[Hg] Mohamad Mouchli [facility] 11-01-2024 14:30-0500 Heart rate 93 /min Mohamad Delaney [facility] 11-01-2024 14:30-0500 Respiratory rate 16 /min Mohklausd Delaney [facility] 11-01-2024 14:30-0500 Systolic blood pressure 112 mm[Hg] Mohamad Mouchli [facility] 10-20-2024 11:08-0500 Body height 167.6 cm [facility] 1 [facility] 10-20-2024 11:08-0500 Body mass index (BMI) [Ratio] 28.41 kg/m2 [facility] 1 [facility] 10-20-2024 11:08-0500 Body weight 79.83 kg Pmh 1 [facility] 10-13-2024 14:20-0500 Body height 170.2 cm Becca Schwarz LEGAL OPERATIONS MANAGER-FREIGHT AND PASSENGER AGENT Work Phone: [facility] [employer] [facility] 10-13-2024 14:20-0500 Body mass index (BMI) [Ratio] 28.51 kg/m2 Becca Schwarz LEGAL OPERATIONS MANAGER-FREIGHT AND PASSENGER AGENT Work Phone: [facility] [employer] [facility] 10-13-2024 14:20-0500 Body weight 82.56 kg Becca Schwarz LEGAL OPERATIONS MANAGER-FREIGHT AND PASSENGER AGENT Work Phone: [facility] 11-01-2022 15:19-0500 Blood Pressure Location Nicola NILL [facility] 11-01-2022 15:19-0500 Diastolic blood pressure 80 mm[Hg] Nicola NILL [facility] 11-01-2022 15:19-0500 Heart rate 72 /min Nicola NILL [facility] 11-01-2022 15:19-0500 Respiratory rate 16 /min Nicola NILL [facility] 11-01-2022 15:19-0500 Systolic blood pressure 118 mm[Hg] Nicola NILL [facility] 10-01-2022 16:30-0400 Body height 170.18 cm Clarice Scally Other [employer] Other 10-01-2022 16:30-0400 Body mass index (BMI) [Ratio] 32.84 kg/m2 Clarice Scally Other [employer] Other 10-01-2022 16:30-0400 Body weight 95.12 kg Clarice Scally Other [employer] Other 10-01-2022 16:30-0400 Diastolic blood pressure 82 mm[Hg] Clarice Scally Other [employer] Other 10-01-2022 16:30-0400 Respiratory rate 18 /min Clarice Hull Other [employer] Other 10-01-2022 16:30-0400 SaO2% (BldA) [Mass fraction] 97 % Claricesissy Carlsonly Other [employer] Other 10-01-2022 16:30-0400 Systolic blood pressure 116 mm[Hg] Clarice Carlsonly Other [employer] Other 08-28-2022 14:30-0400 Body height 170.18 cm Nahid Mccoy Other [employer] Other 08-28-2022 14:30-0400 Body mass index (BMI) [Ratio] 34.55 kg/m2 Nahid Mccoy Other [employer] Other 08-28-2022 14:30-0400 Body weight 100.06 kg Nahid Mccoy Other [employer] Other 08-28-2022 14:30-0400 Diastolic blood pressure 82 mm[Hg] Nahid Mccoy Other [employer] Other 08-28-2022 14:30-0400 Respiratory rate 18 /min Nahid Mccoy Other [employer] Other 08-28-2022 14:30-0400 SaO2% (BldA) [Mass fraction] 97 % Nahid Mccoy Other [employer] Other 08-28-2022 14:30-0400 Systolic blood pressure 121 mm[Hg] Nahid Mccoy Other [facility] [employer] [employer] Other Encounters Encounter Date Encounter Type Care Provider Facility Start: 08-13-2025 End: 08-13-2025 ambulatory Sami Mccarty [facility] Work Phone: Start: 08-13-2025 End: 08-13-2025 Departed Referred Sami Lawton MD -LAB [facility] [place] [facility] Start: 02-07-2025 End: 02-07-2025 ambulatory Vinayak Baltazar Facility:[facility] Start: 02-03-2025 End: 02-03-2025 Bamboo flowsheet Tiesha Hughes PRODUCTION RECOVERY OPERATOR Work Phone: [facility] Start: 02-03-2025 End: 02-03-2025 Bamboo flowsheet Tiesha Hughes PRODUCTION RECOVERY OPERATOR Work Phone: [facility] Start: 02-03-2025 End: 02-03-2025 Office outpatient visit 25 minutes Tiesha Hughes PRODUCTION RECOVERY OPERATOR Work Phone: [facility] Comment on above: LIZZETH (obstructive sle ep apnea) (Primary Dx); Hypoxia; Hypersomnia; Primary insomnia; Snoring Start: 02-03-2025 End: 02-03-2025 ambulatory TIESHA HUGHES Not Available Start: 02-01-2025 End: 02-01-2025 Patient encounter procedure [facility] [address] Work Phone: Start: 02-01-2025 End: 02-01-2025 ambulatory NON STAFF [facility] Work Phone: Start: 11-22-2024 End: 11-22-2024 Bamboo flowsheet Delgado Lidia DO Work Phone: [facility] Start: 11-22-2024 End: 11-30-2024 Bamboo flowsheet Delgado Lidia DO Work Phone: [facility] Start: 11-22-2024 End: 11-30-2024 Clinisync Result Encounter Delgado Murillo DO Work Phone: [facility] Unsolicited Start: 11-22-2024 End: 11-22-2024 Patient encounter procedure Delgado Murillo DO Work Phone: [facility] Start: 11-22-2024 End: 11-22-2024 Periodic preventive med est patient 40-64yrs Delgado Cornejoo DO Work Phone: [facility] Comment on above: Well woman exam with routine gynecological exam; H/O: hysterectomy; Breast cancer screening by mammogram; Yeast infection Start: 11-22-2024 End: 11-22-2024 ambulatory DELGADO MURILLO Not Available Start: 11-15-2024 End: 11-15-2024 ambulatory Hebert Jara MD Facility:[facility] Start: 11-01-2024 End: 11-01-2024 ambulatory Vinayak Baltazar Facility:[facility] Start: 11-01-2024 End: 11-01-2024 Patient encounter procedure Vinayak Baltazar [facility] Start: 10-27-2024 End: 10-27-2024 Evaluation and management of inpatient TATYANA [facility] Start: 10-20-2024 End: 10-20-2024 ambulatory [facility] Pat Phone Call Provider 1 [facility] Start: 10-20-2024 End: 10-20-2024 ambulatory SAMI [facility] Start: 10-18-2024 End: 10-18-2024 ambulatory Hebert Jara MD Facility:[facility] Start: 10-14-2024 ambulatory Vinayak Baltazar Facilit y:[facility] Start: 10-13-2024 End: 10-13-2024 Office outpatient new 30 minutes Becca Schwarz LEGAL OPERATIONS MANAGER-FREIGHT AND PASSENGER AGENT Work Phone: [facility] Comment on above: Positive fecal occul t blood test (Primary Dx); Rectal bleeding; Gastroesophageal reflux disease, unspecified whether esophagitis present Start: 10-13-2024 End: 10-13-2024 ambulatory [facility] Start: 10-04-2024 End: 10-04-2024 ambulatory Hebert Jara MD Facility:[facility] Start: 09-27-2024 End: 09-27-2024 Office outpatient visit 15 minutes Delgado Lidia DO Work Phone: [facility] Comment on above: Encounter [...] End: 09-20-2024 ambulatory Hebert Jara MD Facility: [facility] Start: 09-09-2024 End: 09-09-2024 ambulatory Carol Webb PT Work Phone: [facility] Comment on above: Neck pain (Primary D x); Chronic bilateral low back pain with bilateral sciatica Start: 09-09-2024 End: 09-09-2024 Bamboo flowsheet Carol Webb PT Work Phone: [facility] Start: 09-09-2024 End: 09-09-2024 Bamboo flowsheet Carol Webb PT Work Phone: [facility] Start: 08-30-2024 End: 08-30-2024 Departed [facility] [address] Work Phone: Start: 08-30-2024 End: 08-30-2024 ambulatory NON STAFF [facility] Work Phone: Start: 04-05-2024 End: 04-05-2024 ambulatory DELGADO MURILLO Not Available Start: 03-15-2024 End: 03-15-2024 Emergency department patient visit Nicola Neel Neff Facility:[facility] Start: 08-15-2023 End: 08-15-2023 ambulatory NON STAFF [facility] Work Phone: Start: 08-15-2023 End: 08-15-2023 Departed Referred [facility] [address] Work Phone: Start: 12-05-[address] SAMI MCCARTY Facility :[facility] Start: 11-09-2022 End: 11-10-[address] DOCTOR STEIN Facility:[facility] Start: 11-01-2022 End: 11-01-2022 Patient encounter procedure Nicola BUCHANAN General Surgery [facility] [place] Start: 10-29-2022 End: 10-29-2022 ambulatory Clarice Hull Other [employer] Other Start: 10-29-2022 Telephone encounter Clarice Hull [facility] Start: 10-14-2022 End: 10-14-2022 ambulatory Clarice Hull Other [employer] Other Start: 10-14-2022 Telephone encounter Clarice Hull [facility] Start: 10-01-2022 (FCCCWMNF/U) Weight Management f/u Clarice Hull [facility] Start: 10-01-2022 End: 10-02-[address] LUZ ELENA SAUCEDA [employer] Other Start: 09-19-2022 End: 09-19-2022 ambulatory Nahid Mccoy Other [employer] Other Start: 09-19-2022 Telephone encounter [facility]id [facility] Start: 09-18-2022 End: 09-18-[address] LUZ ELENA SAUCEDA Facility:[facility] Start: 09-12-2022 End: 09-13-[address] ABIGAIL GONSALVES Facility:[facility] Start: 08-28-2022 End: 08-28-2022 ambulatory Nahid Mccoy Other [facility] [facility] Other Start: 08-28-2022 Nutrition therapy Nahid [facility] Start: 07-22-2022 Encounter for genera l adult medical examination without abnormal findings DR SAMI MCCARTY [facility] Start: [...] Performing Clinician Start: 01-28-2025 Mammography Tiesha dillon PRODUCTION RECOVERY OPERATOR Work Phone: Start: 11-22-2024 IGP,APTIMA HPV,AGE GDLN Delgado Murillo DO Work Phone: Start: 11-22-2024 Microscopic observat ion [Identifier] in Cervix by Cyto stain Tiesha Hughes PRODUCTION RECOVERY OPERATOR Work Phone: Start: 10-27-2024 Colonoscopy Delgado burnette [...] Phone: History of cholecystectomy S/P cholecyste ctomy Mohamahelen Baltazar Laparoscopic cholecystectomy Nicola BUCHANAN Laparoscopic excisio n of cyst of left ovary Nicola BUCHANAN Laparoscopic excisio n of cyst of right ovary Nicola BUCHANAN Ligation of fallopian tube Jered BUCHANAN Comment on above: DONE WITH C SECTION LIPOMA EXCISION 4 Nicloa KEBEDE Comment on above: ABDOMEN X3 REPAIR FOR TMJ Nicola BUCHANAN Plan of Treatment Date Care Activity Detail Author Start: 10-27-2034 Screening for malignant neoplasm of colon [facility] Start: 05-28-2031 Screening for malignant neoplasm of colon [facility] Start: 10-23-2028 Screening for malignant neoplasm of cervix [facility] Start: 11-22-2027 Screening for malignant neoplasm of cervix Pap Smear [facility] Start: 10-23-2026 Screening for malignant neoplasm of cervix Pap Smear [facility] Start: 05-28-2026 Screening for malignant neoplasm of colon Colonoscopy [facility] Start: 01-28-2026 Screening for malignant neoplasm of breast Mammogram [facility] Start: 10-13-2025 Adult BMI Screening Adult BMI Screening [facility] Start: 10-13-2025 Tobacco Screening Tobacco Screening [facility] Start: 08-13-2025 Bacteria identified in Urine by Culture Urine Culture [facility] Start: 08-13-2025 Urine culture [facility] Start: 03-24-2025 End: 03-24-2025 Patient encounter procedure 03/24/2025 10:00 AM EDT Office Visit [facility] [address] [address] [place] [phone] Tiesha Hughes, PRODUCTION RECOVERY OPERATOR [address] [place], [place] [facility] Start: 02-03-2025 End: 02-03-2025 Patient encounter procedure 02/03/2025 8:20 AM EST Office Visit [facility] [address] [place] [address] Tiesha Hughes, PRODUCTION RECOVERY OPERATOR [address] [place], [place] Arrived [facility] Comment on above: Arrived Start: 02-01-2025 Aldolase measurement [facility] Start: 02-01-2025 Hemolytic complement CH50 level [facility] Start: 02-01-2025 [facility] Start: 11-27-2024 Screening for malignant [...] 10-27-2024 Admission to same day surgery center [facility] Comment on above: ESOPHAGOGASTRODUODENOSCOPY DIAGNOSTIC [4 323 (CPT )] Start: 10-27-2024 End: 10-27-2024 Colonoscopy flx dx w/collj spec when pfrmd [facility] Start: 10-27-2024 End: 10-27-2024 Esophagogastroduodenoscopy transoral diagnostic [facility] Start: 10-27-2024 Subsequent hospital visit by physician [facility] Start: 10-26-2024 End: 10-26-2024 Patient encounter procedure 10/26/2024 1:45 PM EST Office Visit [facility] [place] [address] [place] [address] Becca Schwarz, LEGAL OPERATIONS MANAGER-FREIGHT AND PASSENGER AGENT [address] [place] [address] [facility] [place] Surgery Start: 10-20-2024 End: 10-20-2024 ambulatory 10/20/2024 4:20 PM EST Support Visit [facility] Admit [address] [place] [address] [facility] - Pre Admit Start: 09-27-2024 End: 09-27-2024 Patient encounter procedure 09/27/2024 3:10 PM EDT Office Visit [facility] [address] [place] [address] Delgado Murillo, [address] [place] [address] Arrived [facility] Comment on above: Arrived Start: 09-09-2024 End: 09-09-2024 ambulatory 09/09/2024 4:00 PM EDT Evaluation [facility] [address] [place] [address] Carol Webb, PT [address] [place], [place] [id number] Arrived [facility] Comment on above: Arrived Start: 08-01-2024 COVID-19 Vaccine () COVID-19 Vaccine () [facility] Start: 08-01-2024 Influenza vaccination [facility] Start: 1995 DTaP,Tdap and Td Vaccines (1 - Tdap) DTaP,Tdap and Td Vaccines (1 - Tdap) [facility] Start: 1994 Adult BMI Follow Up Plan Adult BMI Follow Up Plan [facility] Start: 1988 Depression Screening Depression Screening [facility] Start: 1976 Screening for malignant neoplasm of colon [facility] Start: 1976 Tobacco Counseling Tobacco Counseling [facility] CHLAMYDIA TRACHOMATI S (GENITO/STI) CHLAMYDIA TRACHOMATIS (GENITO/STI) Lab Routine Vaginal spotting Ordered: 09/27/2024 [facility] Comment on above: Ordered: 09/27/2024 End: 10-13-2025 EGD / Colonoscopy EGD / Colonoscopy GI Routine Positive fecal occult blood test 1 Occurrences starting 10/13/2024 until 10/13/2025 [facility] Work Phone: Comment on above: 1 Occurrences starting 10/13/2024 until 10/13/2025 Neisseria gonorrhoea e DNA [Presence] in Unspecified specimen by NOLA with probe detection Neisseria gonorrhea DNA probe, direct Lab Routine Vaginal spotting Ordered: 09/27/2024 [facility] Comment on above: Ordered: 09/27/2024 SURESWAB(R) ADVANCED VAGINITIS PLUS, TMA SURESWAB(R) ADVANCED VAGINITIS PLUS, TMA Pathology and Cytology Routine Vaginal spotting Ordered: 09/27/2024 [facility] Work Phone: Comment on above: Ordered: 09/27/2024 THIN PREP TIS PAP AND HR HPV DNA THIN PREP TIS PAP AND HR HPV DNA Pathology and Cytology Routine Well woman exam with routine gynecological exam H/O: hysterectomy Ordered: 11/22/2024 [facility] Comment on above: Ordered: 11/22/2024 Immunizations Immunization Date Immunization Notes Care Provider Ramila narvaez 02-15-2018 SARS-CoV-2 mRNA (kzjtlavaidl-bubi-qqla ose) vaccine Vinayak Baltazar [facility] 10-02-2004 influenza virus vaccine, unspecified formulation Becca Schwarz LEGAL OPERATIONS MANAGER-FREIGHT AND PASSENGER AGENT Work Phone: [facility] NEGATED: Highlighted row has not occurred!11-01-2022 influenza virus vaccine, unspecified formulation Nicola BUCHANAN General Surgery [place] Payers Date Payer Category Payer Self-pay [id number] 2023 Private Health Insurance [employer] [id number] 2023 Unknown [id number]. 1.13.693.2. [id number] 2014 [employer] [facility] [employer] [id number]. [id number] 1976 Unknown [id number] 216840.1.751205.3.579.2. 593 1976 Unknown [id number] 2.840.1.671165.3.579.2. 59 1976 Unknown [id number] 2.16.840.1.132150.3.579.2. 593 1976 Unknown [id number] 2.16.840.1.194018.3.579.2. 593 1976 Unknown [id number] 2.16.840.1.236458.3.579.2. 593 1976 Unknown [id number] 2.16.840.1.485337.3.579.2. 593 1976 Unknown [id number] 2.16.840.1.362697.3.579.2. 593 1976 Unknown [id number] 2.16.840.1.344461.3.579.2. 593 1976 Unknown [id number] 2.16.840.1.135501.3.579.2. 593 1976 Unknown [id number] 2.16.840.1.972771.3.579.2. 593 1976 Unknown [id number] 2.16.840.1.230485.3.579.2. 593 1976 Unknown [id number] 2.16.840.1.956438.3.579.2. 593 1976 Unknown [id number] 2.16.840.1.311359.3.579.2. 593 1976 Unknown [id number] 2.16.840.1.925468.3.579.2. 593 1976 Unknown [id number] 2.16.840.1.925536.3.579.2. 718 1976 Unknown [id number] 2.16.840.1.457337.3.579.2. 1286 1976 Unknown [id number] 2.16.840.1.564974.3.579.2. 1286 1976 Unknown [id number] 2.16.840.1.164504.3.579.2. 1286 1976 Unknown [id number] 2.16.840.1.852654.3.579.2. 196 1976 Unknown [id number] 2.16.840.1.376251.3.579.2. 1976 Unknown [id number] 2.16.840.1.952213.3.579.2. 1976 Unknown [id number] 2.16.840.1.137609.3.579.2. 196 1976 Unknown [id number] 2.16.840.1.589286.3.579.2. 1258 1976 Unknown [id number] 2.16.840.1.227582.3.579.2. 1258 1976 Unknown [id number] 2.16.840.1.079470.3.579.2. 1258 1976 Unknown [id number] 2.16.840.1.871329.3.579.2. 1258 1976 Unknown [id number] 2.16.840.1.077291.3.579.2. 1258 1976 Unknown [id number] 2.16.840.1.373351.3.579.2. 7 1976 Unknown [id number] 2.16.840.1.980302.3.579.2. 727 1959 Self-pay [id number] 1959 Unknown [id number] 2.16.840.1.564593.19 Unknown [id number] 2.16.840.1.993208.3.579.2. 531 Unknown [id number] 2.16.840.1.440258.3.579.2. 531 Unknown [id number] 2.16.840.1.971873.3.579.2. 531 Social History Date Type Detail Facility Unknown if ever smoked [employer] Other Start: 10-20-2023 End: 03-06-2025 Sex Assigned At [facility] Start: 11-01-2022 Tobacco smoking status Ex-smoker (finding) [facility] Tobacco smoking status Former sm okeless tobacco user, quit more than 30 days ago [facility] [place] Start: 1975 Sex Assigned At Female [facility] Start: 06-25-2023 Tobacco smoking status [...] o r e-cigarette use Smokeless Tobacco Use:. [facility] Tobacco smoking status No Smokin g Status Entered [facility] Start: 10-13-2024 End: 10-20-2024 Tobacco smoking status NHIS Occasional tobacco smoker [facility] History of tobacco use [facility] Start: 10-13-2024 End: 10-20-2024 Tobacco use and exposure Smokeless tobacco non-user [facility] Start: 10-13-2024 Alcoholic beverage intake Current non-drinker of alcohol (finding) [facility] Start: 07-06-2015 End: 02-01-2025 [facility] (finding) [facility] Start: 12-06-2022 Gender identity Identifies as female gender (finding) [facility] Start: 12-06-2022 Sexual orientation Homosexual (finding) [facility] Start: 10-20-2024 Alcohol Comment rare [facility] Tobacco smoking stat [facility] Unknown if ever smoked [facility] Work Phone: Functional Status Date Assessment Result Facility 11-01-2024 Functional Status N/A [facility] 11-01-2022 Functional Status N/A [...] nursing note reviewed. Exam conducted with a order planner present. Vitals: Estimated body mass index is [...] scheduled/obtained. Nursing will send progesterone/testosterone cream to [facility] for patient. Orders Placed This Encounter Procedures Bilateral screening mammogram Follow Up: Patient is to return in one year for annual unless needed otherwise. Documented by Franci Sutton MA on behalf of: Delgado Murillo DO documented in this encounter [facility] 10-20-2024 Nurse Note Preoperative Education Checklist- General Surgery date: 10/27/24 Surgery time: 1045a Arrival time: 845a 1. Bring a photo ID and your insurance card with you the day of surgery. You will check in at the main lobby of the [facility]- registration desk is straight ahead as soon as you walk in. Tell them you are here for surgery. 2. If you have a Living Will/Durable Power of Truck Leasing Manager for Health Care that is not [...] after you have bathed. 5. NO nail st helenian/acrylic on at least one finger. If you are having a hand, wrist or foot surgery then all nail st helenian and artificial/acrylic nails must be removed from [...] please call the Preadmission Testing office at [phone], Mon.-Fri. 7 a.m.-3 p.m. Leave a voicemail [...] Stop taking [facility] [employer] [facility] 10-20-2024 Miscellaneous Notes Preoperative Education Checklist- General Surgery date: 10/27/24 Surgery time: 1045a Arrival time: 845a 1. Bring a photo ID and your insurance card with you the day of surgery. You will check in at the main lobby of the [facility]- registration desk is straight ahead as soon as you walk in. Tell them you are here for surgery. 2. If you have a Living Will/Durable Power of Truck Leasing Manager for Health Care that is not [...] after you have bathed. 5. NO nail st helenian/acrylic on at least one finger. If you are having a hand, wrist or foot surgery then all nail st helenian and artificial/acrylic nails must be removed from [...] please call the Preadmission Testing office at [phone], Mon.-Fri. 7 a.m.-3 p.m. Leave a voicemail [...] prior to procedure [facility] History of Presen t illness [...] 05/28/2021 Performed by Nicola Gee DO at [facility] COLONOSCOPY N/A 05/04/2018 Performed by Nicola Gee DO at [facility] CYST REMOVAL from uterus and ovaries x 5 EGD N/A 05/04/2018 Performed by Nicola Gee DO at [facility] ESOPHAGOGASTRODUODENOSCOPY N/A 05/28/2021 Performed by Nicola Gee DO at [facility] KNEE ARTHROSCOPY Left [...] muscle spasms., Disp: , Rfl: peg 3350-sod sulf,dahe-fzn-mnq 178.7-7.3-0.5 gram recon soln, Take 1 kit [...] patient/family/caregiver Referring and communicating with other health urgent care technician Positive fecal occult blood test [R19.5] MAYRA VIEIRA [facility] [place] This note was created with the assistance of a speech recognition program. While intending to generate a timely document that accurately reflects the content of the visit, no guarantee can be provided that every grammatical or spelling mistake has been or will be identified or corrected. Thank you for your understanding. MAYRA Vieira 10/13/24 1513 documented in this encounter [facility] 09-27-2024 History of Presen t illness [...] MS LAP,CHOLECYSTECTOMY 2003 MS LIGATION,FALLOPIAN TUBE W/ 2005 c-sec w/tubal MS TMJ ARTHROSCOPY/SURGERY 1996 SHOULDER [...] nursing note reviewed. Exam conducted with a order planner present. Vitals: Estimated body mass index is [...] Delgado Murillo DO documented in this encounter [facility] 09-09-2024 History of Presen t illness Narrative [...] No resulting surgeries. 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 Also notes poor balance with no diagnosed [...] Keep all follow-up visits. Medicines ? Take zapm-thc-nifpisk and prescription medicines only as told by [...] content not included)... [facility] 10-01-2022 Evaluation note Encounter Date [...] was counseling done by myself, Ann ANGLIN. [employer] Other 09-28-2022 Evaluation note* Encounter Date Diagnosis Assessment Notes Treatment Notes Treatment Clinical Notes Aug, Abnormal weight gain (ICD-10 - R63.5) Aug, Prediabetes (ICD-10 - R73.03) Aug, Mixed hyperlipidemia (ICD-10 - E78.2) Aug, Hypertension (ICD-10 - I10) Aug, Obstructive sleep apnea (ICD-10 - G47.33) Aug, GERD (gastroesophageal reflux disease) (ICD-10 - K21.9) Aug, Metabolic syndrome X (ICD-10 - E88.81) [employer] Other 06-16-2022 NoteDISCHARGE SUMMARY DISCHARGE DATE: [...] pain free and no longer on narcotics. [facility] Signed and Approved by: DR DELGADO MURILLO . 05/20/2022 07:51:00[id number] NoteThe [place], [place] NAME: HORACIO PUGH DATE OF : MEDICAL REC#: [id number] CRIPPLE CUTTER: 1602 JESUS MEDICAL ADMIT DATE: 05/16/2022 11:05:00 SCALLOP DREDGER DATE: 05/17/2022 21:20 DICTATING PHYSICIAN: DELGADO MURILLO DICTATION DATE: 05/16/2022 15:02 OP Note OPERATION DATE: 05/16/2022 PROCEDURE: Supracervical hysterectomy with left salpingo-oophorectomy with right salpingectomy and right ovarian cystotomy of approximately 3 cm cyst. SURGEON: Delgado Murillo D.O. LOGGING ASSISTANT: SHUKRI Bailon URINE OUTPUT: Yellow and clear. [...] with good visualization of the bladder. An Rick'Jim- O-Robbie retractor was placed into the patient's [...] performed, The uterus was then amputated using Altoya scissors. The patient's cervical stump was closed [...] by: DR DELGADO MURILLO . 05/23/2022 10:30:00[facility] [place] [facility] No data available for this section General Surgery [place] Evaluation + Plan note Future Appointments Appointment Date:02/07/2025 02:15:00 PM Scheduled Provider:Delaney BURK, Vinayak Jimenez Location:[facility] Dig[facility]ive [facility] Appointment Type:[facility] Follow Up Future Scheduled Tests Laboratory* Antimitochondrial Antibody, Quantitative 11/01/24 * Smooth Muscle Antibody Screen 11/01/24 * IgA, Quant. 11/01/24 * IgG, Quant. 11/01/24 * t-Transglutaminase IgA 11/01/24 * Comprehensive Metabolic Panel 11/01/24 * Comprehensive Metabolic Panel 12/02/24 * Comprehensive Metabolic Panel 01/02/25 [facility] evaluation noteNo InformationNoMyJobCompany Other evaluation noteNo assessment information available [facility] Work Phone: evaluation note* Diagnosis Neck pain- [...] Yeast infection documented in this encounter [facility] Diagnosis Positive fecal occult blood test- Primary Rectal bleeding Hemorrhage of rectum and anus Gastroesophageal reflux disease, unspecified whether esophagitis present [facility] Diagnosis LIZZETH (obstructive sleep apnea)- Primary Obstructive sleep apnea (adult) (pediatric) Hypoxia Hypoxemia Hypersomnia Hypersomnia, unspecified Primary insomnia Persistent disorder of initiating or maintaining sleep Snoring Other dyspnea and respiratory abnormality documented in this encounter [facility] general [...] History TMJ surgery Hospitalization History see above [employer] Other History general Narrative - Reported* [...] see above Hospitalization History ER-abd . pain [facility] 09/18/22 [employer] Other Hospital Discharge instructions No data available for this section General Surgery [place] InstructionsNot on filedocumented in this encounter [employer] SystemInstructionsNot on filedocumented in this encounter [facility] [employer] SystemProgress note No data available for this section General Surgery [place] Reason for referral (narrative)No reason for referral information available[facility] Work Phone: Summary Purpose Family History No Family History Records Found Relationship Condition Age at Onset Recorded Date/T lewis aunt Obesity Unknown father Diabetes mellitus Unknown Unknown Obesity Unknown grandparent Obesity Unknown mother Diabetes mellitus Unknown Family history of lung cancer Unknown Malignant neoplasm Unknown Advance Directives No Advanced Directives Records Found Advance Directive Response Recorded Date/ Time Advance Directives No February 02 10:30am Chief Complaint and Reason for Visit Chief Complaint WELLNESS Chief Complaint [facility] Chief Complaint Admit Date Unknown August 13, 2025 11:48am Additional Source Comments REASON FOR VISIT (unrecogniz ed section and content) Specialty Diagnoses / Procedures Referred By Teaj t Referred To Contact Physical Therapy Diagnoses Other spondylosis, lumbar region Procedures MS PHYS THERAPY EVALUATION Gómez, Selvon F, MD [facility] [place] [address] [place] [address] Carol Webb, PT [address] [place] [address] Referral ID Status Reason Start Date Expiration Date V isits Requested Visits Authorized [id number] Authorized 09/02/2024 03/01/2025 40 40 Reason Comments [...] Primary Care Provider Active Dedrick Fuller , [facility] Attending Provider Active Team Status: Inactive Member Role Status Dates NON STAFF Primary Care Provider Active Start: August 30, 2024 End: August 30, 2024 Dedrick Fuller [facility] , [facility] Attending Provider Active Start: August 30, 2024 End: August 30, 2024 Earth Auger Operator Relationship Specialty Start Date End Date Sami Mccarty MD [address] [place] [address] PCP - General Family Medicine 06/26/23 Earth Auger Operator Relationship Specialty Start Date End Date Sami Mccarty MD [address] [place] [address] PCP - General Family Medicine 06/26/23 Earth Auger Operator Relationship Specialty Start Date End Date Sami Mccarty MD [address] [place] [address] PCP - General Family Medicine 06/26/23 Earth Auger Operator Relationship Specialty Start Date End Date Sami Mccarty MD [address] [place] [address] PCP - General Family Medicine 06/26/23 Earth Auger Operator Relationship Specialty Start Date End Date Sami Mccarty MD [address] [place] [facility] [place] [address] PCP - General Family Medicine 06/26/23 Earth Auger Operator Relationship Specialty Start Date End Date Sami Mccarty MD PCP - General 05/04/18 Earth Auger Operator Relationship Specialty Start Date End Date Sami Mccarty MD PCP - General 05/04/18 Earth Auger Operator Relationship Specialty Start Date End Date Sami Mccarty MD [address] [place] [facility] [place] [address] PCP - General Family Medicine 06/26/23 Tiesha Hughes NP [address] [place], [place] Nurse Practitioner Neurology 02/03/25 Shasha White DO [address] [place], [place] [id number] Referring Physician Neurology 02/03/25 Earth Auger Operator Relationship Specialty Start Date End Date Sami Mccarty MD [address] [place] [facility] [place] [address] PCP - General Family Medicine 06/26/23 Tiesha Hughes NP [address] [place], [place] Nurse Practitioner Neurology 02/03/25 Shasha White DO [address] [place] [address] Referring Physician Neurology 02/03/25 Team Status: Inactive Member Role Status Dates NON STAFF Primary Care Provider Active Start: February 01, 2025 End: February 01, 2025 Carol Vidal MD Attending Provider Active St art: February 01, 2025 End: February 01, 2025 Team Status: Inactive Member Role Status Dates Sami Mccarty MD Attending Provider Active Sta rt: August 13, 2025 End: August 13, 2025 INFORMATION SOURCE (unrecogn ized section and content) DATE CREATED AUTHOR 12/03/2022 [facility] DATE CREATED AUTHOR AUTHOR'S ORGANIZ ATION 03/21/2024 [facility] DATE CREATED AUTHOR AUTHOR'S ORGANIZ ATION 10/15/2024 [facility] DATE CREATED AUTHOR AUTHOR'S ORGANIZ ATION 11/12/2024 [facility] DATE CREATED AUTHOR AUTHOR'S ORGANIZ ATION 11/24/2024 [facility] DATE CREATED AUTHOR AUTHOR'S ORGANIZ ATION 02/05/2025 [facility] DATE CREATED AUTHOR AUTHOR'S ORGANIZ ATION 02/09/2025 [facility] DATE CREATED AUTHOR AUTHOR'S ORGANIZ ATION 08/15/2025 [facility] Goals (unrecognized section and content) [...] BE BASED ON THE PRIMARY CLINICAL RECORDS. [employer] provides no warranty or guarantee of the accuracy or completeness of information in this document.
--- NOTE | 2025-08-23 14:51 | US_ITS ---
The [address] [address] Patient Name: HORACIO KEATING MRN: [id number] date: 1975 Sex: F Assigned Patient Location: US Current Patient Location: US Accession/Order Number: [id number] Exam Date: 08/23/2025 15:00 Report Date: 08/23/2025 20:00 At the request of: SAMI MCCARTY MD Procedure: US pelvis transvaginal Pelvic ultrasound. Reason for exam: Vaginal bleeding. Comparison: none Technique: Transvaginal imaging of the uterus and ovaries was also obtained. Additional spectral Doppler analysis of the ovaries was also obtained. Findings: Patient is status post cervical sparing hysterectomy. Residual cervix appears grossly unremarkable. No free fluid is seen. Left ovary has been removed. Right ovary is not visualized. No pelvic mass or cyst. US/US pelvis transvaginal Impression: No suspicious findings. Impression dictated by: Seymour Hopper Jr., D.O. 08/23/2025 8:00 PM Dictation Location: [place] [address] Electronically authenticated by: [id number] Y Date: 08/23/2025 20:00
== END 2025-08-23 14:38 | disposition home or self-care (01) ==
LOC: US 14:38
PROVIDERS: PCP Family Medicine; Visit Provider Family Medicine
DX: Q61.00 Congenital renal cyst, unspecified (principal); N93.9 Abnormal uterine and vaginal bleeding, unspecified
CPT/HCPCS: 76770; 76830

== ENCOUNTER 2025-09-14 16:41 | Outpatient (OUT) | payer OTHER, SELFPAY ==
--- OUTSIDE RECORDS SUMMARY | 2024-08-20 05:20 | XMS_ITS ---
Author Organization [facility] Address [address] [place] [address] Care Team Providers Care Agricultural Service Worker Name Role Phone Varun Marinelli Primary Care Provider Edwige Strauss [phone] REASON FOR VISIT lumbar pain NEEDS TO RESCHEDULE Encounters Encounter Location Date Provider Diagnosis [facility] [address] [place] [address] [place] [address] 08/20/2024 Edwige Magaña Plan Of Treatment No Information Progress Notes * KEISHA KEATINGY NDOB: [birth year] (50 yo F)Acc No.[id number]:08/20/2024 Patient: HORACIO GOLD Provider: Kaelyn Ward MD, PhD :1975 A ge:49 Y S ex:Female Date:08/20/2024 Address:[address] [place], [place] [address], [id number] Pcp:Varun Marinelli Subjective: * Chief Complaints: * 1 . lumbar pain NEEDS TO RESCHEDULE. * Medical History: Objective: * Vitals: Assessment: Plan: * Treatment: Forms: * Images: * Electronic signature of Anastasia Magaña MD, PHD on 09/14/2025 at 04:49 PM EDT Sign off status: Pending * Provider: Kaelyn aWrd MD, PhD Date: 0 08/20/2024 Generated for Darin tang/Tay/Maria Teresa on: 1 04:49 PM EDT
--- OUTSIDE RECORDS SUMMARY | 2025-02-04 05:00 | XMS_ITS ---
Author Organization [facility] Address [address] [place] [address] Care Team Providers Care Bus Matron Name Role Phone Varun Marinelli Primary Care Provider Edwige Strauss [phone] REASON FOR VISIT THORACIC SPINE Medications Medication SIG (Take, Route, Frequency, Duration) Notes Start Date End Date Status Ozempic Active doxepin Active indomethacin Active Zanaflex Active Adderall Active lisinopril Active Lopressor Active Xanax Active Aspirin Active Prilosec Active Encounters Encounter Location Date Provider Diagnosis [facility] Office [address] [place] [address] [place] [address] 02/04/2025 Edwige Magaña Plan Of Treatment No Information Progress Notes * KEATING, HORACIO NDOB: [birth year] (50 yo F)Acc No.[id number]:02/04/2025 Patient: KEISHA GOLDLeonardo Reilly Provider: Kaelyn Ward MD, PhD :1975 A ge:49 Y S ex:Female Date:02/04/2025 Address:[address] [place], [place] [address], [id number] Pcp:Varun Marinelli Subjective: * Chief Complaints: * 1 . THORACIC SPINE. * Medical History: * Medications: T aking Ozempic , Taking lisinopril , Taking Lopressor , Taking Aspirin , Taking Prilosec , Taking Xanax , Taking Adderall , Taking Zanaflex , Taking doxepin , Taking indomethacin Objective: * Vitals: Assessment: Plan: * Treatment: Forms: * Images: * Electronic signature of Seltiki on St Juliana MD, PHD on 09/14/2025 at 01:35 PM EDT Sign off status: Pending * Provider: Kaelyn Ward MD, PhD Date: 0 02/04/2025 Generated for Darin tang/Tay/Maria Teresa on: 1 01:35 PM EDT
--- OUTSIDE RECORDS SUMMARY | 2025-09-14 16:48 | XMS_ITS | Encounter Summary ---
Author Organization [facility] Address [address] [facility] [place] [address] Care Team Providers Care Nib Finisher Name Role Phone Varun Marinelli MD Primary Care Provider [phone] Tiesha Hughes CUT OUT STITCHER Unavailable [phone] Shasha White DO Unavailable [phone] Encounter Details Date Type Department Care Team (Late st Contact Info) Description 09/13/2024 Abstract [facility] [address] [place] [address] Delgado Murillo DO [address] [place], [place] [id number] Social History Tobacco Use Types Packs/Day Years [...] EDT Office Visit [facility] [place] [facility] [address] [place] [address] Delgado Murillo DO [address] [place] [place], [place] [id number] documented as of this encounter Visit Diagnoses Not on filedocumented in this encounter Care Teams Nib Finisher Relationship Specialty Start Date End Date Varun Marinelli MD PCP - General Family Medicine 06/26/23 Tiesha Hughes NP Nurse Practitioner Neurology 02/03/25 Shasha White DO [address] [place], [place] [id number] Referring Physician Neurology 02/03/25 documented as of this encounter
--- OUTSIDE RECORDS SUMMARY | 2025-09-14 16:48 | XMS_ITS | Patient Health Record ---
Author Organization [facility] Address [address] [place] [address] Care Team Providers Care Shoe Dresser Name Role Phone Varun Marinelli Primary Care Provider Unavailsalome Edwige Angeles Unavailable [phone] Aman Cifuentes Unavailable [phone] xxAngleShikha bateman Unavailable Allergies Allergen (clinical drug [...] Problem Status W/U Status Risk Notes Problem 71779088 Muscle spasm (M62.838) Active confirmed Problem 531519064256163 Primary osteoarthritis, right hand (M19.041) Active confirmed Problem 51985852 DDD (degenerativ e disc disease), cervical (M50.30) Active confirmed Problem Degeneration of cervical intervertebral disc (67801281) Degeneration of intervertebral disc at C6-C7 level (M50.323) Active confirmed Problem 73897959 Lumbar stenosis with neurogenic claudication (M48.062) Active confirmed Problem Degeneration of cervical intervertebral disc (10005821) 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) Active confirmed Problem 556379556 Facet arthropath y, 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) Active confirmed Problem Lumbar arthritis (disorder) (500344028) 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) Active confirmed Problem 303064657 Scapular dyskinesis (G25.89) Active confirmed Problem Cervical facet joint pain (finding) (376342178) Cervical facet syndrome (M47.812) Active confirmed Problem 995036290 Facet arthropath y (M47.819) Active confirmed Problem 872364997090879 HNP (herniated nucleus pulposus), thoracic (M51.24) Active confirmed Problem Generalized osteoarthritis of the hand (147717051) 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) Active confirmed Encounters Encounter Location Date Provider Diagnosis [facility] Office [address] [facility] [place] [address] 01/17/2025 Aman Cifuentes Primary osteoarthritis, right hand M19.041 [facility] [address] [facility] [place] [address] 02/18/2025 [facility] HNP (herniated nucleus pulposus), thoracic M51.24 ; [...] Test Name Order Date Cervical spine,ap,lat,flex,ext - 40021 0 08/12/2024 MRI : Lumbosacral Spine W/O [...] RIGHT 05/03/2024 [facility]- HAND 3 VIEW RIGHT [id number] 05/03/2024 [facility]- LUMBAR 4 VIEW 66128 05/03/2024 Insurance Providers Payer Name Payer Address Payer Phone Subscriber Number Group Number Insured Name Patient Relationship to Insured Coverage Start Date Coverage End Date [facility] [address] [place] [address] [id number] HORACIO KEATING Self - patient is the [...]
--- OUTSIDE RECORDS SUMMARY | 2025-09-14 16:48 | XMS_ITS | Encounter Summary ---
Author Organization [facility] Address [address] [place] [address] Care Team Providers Care Tile Mechanic Helper Name Role Phone Varun Marinelli MD Primary Care Provider [phone] Tiesha Hughes MEDICAL RECORD RETRIEVAL SPECIALIST Unavailable [phone] Shasha White DO Unavailable [phone] Encounter Details Date Type Department Care Team (Late st Contact Info) Description 09/13/2024 Abstract [facility] HERNANDES [address] [place] [address] Delgado Murillo DO [address] [place], [place] [phone] Social History Tobacco Use Types Packs/Day Years [...] EDT Office Visit [facility] [place] [facility] [address] [place] [address] Delgado Murillo DO [address] [place] [place], [place] [address] documented as of this encounter Visit Diagnoses Not on filedocumented in this encounter Care Teams Tile Mechanic Helper Relationship Specialty Start Date End Date Varun Marinelli MD PCP - General Family Medicine 06/26/23 Tiesha Hughes NP Nurse Practitioner Neurology 02/03/25 Shasha White DO [address] [place], [place] [phone] Referring Physician Neurology 02/03/25 documented as of this encounter
--- OUTSIDE RECORDS SUMMARY | 2025-09-14 16:49 | XMS_ITS | Encounter Summary ---
Author Organization [facility] Address [address] [place] [address] Care Team Providers Care Teamcenter Solution Architect Name Role Phone Varun Marinelli MD Primary Care Provider [phone] Tiesha Hughes MANAGER LINUX Unavailable [phone] Shasha White DO Unavailable [phone] Encounter Details Date Type Department Care Team (Late st Contact Info) Description 12/08/2024 Orders Only [facility] [place] [facility] [address] [place] [phone] Bobbi Mcclain LPN [address] [place] [address] Social History Tobacco Use Types [...] EDT Office Visit [facility] [place] [facility] [address] [place] [address] Delgado Murillo DO [address] [place] [address] documented as of this encounter Procedures Procedure Name Priority Date/Time Associated Diagnosis Comments PAP SMEAR Routine 11/22/2024 12:00 AM EST documented in this encounter Results * Pap Smear (11/22/2024 12:00 AM EST) Swab Cervical swab / Unknown us Delgado Murillo DO LAB CYTOLOGY ORDERABLES Final Re sult EXTERNAL LAB documented in this encounter Visit Diagnoses Not on filedocumented in this encounter Care Teams Teamcenter Solution Architect Relationship Specialty Start Date End Date Varun Marinelli MD PCP - General Family Medicine 06/26/23 Tiesha Hughes NP Nurse Practitioner Neurology 02/03/25 Shasha White DO [address] [place] [address] Referring Physician Neurology 02/03/25 documented as of this encounter
--- OUTSIDE RECORDS SUMMARY | 2025-09-14 16:49 | XMS_ITS | CCD ---
Author Organization [facility] CliniSynh Care Team Providers Care Electrode Cleaner Name Role Phone Nahid Mccoy Unavailable Clarice [...] Provider Sami Mccarty MD Primary Care Provider [phone] BECCA SCHWARZ Attending Unavailable MIGUEL MCCARTYLAS M Referring Unavailable SAMI MCCARTY M Primary Care Unavailable SAMI MCACRTY M Referring Unavailable SAMI MCCARTY M Primary Care Unavailable SHEELA, MENNATALLAH M Admitting Unavailable SHEELA, MENNATALLAH M Attending Unavailable SAMI MCCARTY M Primary Care Unavailable Marek BURK, Andalyson Rock Attending Unavailable Marek BURK, Andrius Rock Attending Unavailable Marek BURK, Andrius Rock Attending Unavailable Marek BURK, Andalyson Rock Attending Unavailable Sami Mccarty MD Primary Care Provider [phone] Ellen SYSTEMS SUPPORT OFFICER, Tiesha Unavailable Cindy DO, Shasha Unavailable TIESHA HUGHES Attending Unavailable DELGADO MURILLO Attending Unavailable CAROL WEBB Attending Unavailable GÓMEZFLORIN JUNE Referring Unavailable DELGADO MURILLO Attending Unavailable DELGADO MURILLO Attending Unavailable NON STAFF Primary Care Provider UnavailCarol Pritchett MD Attending Provider [phone] Vinayak Baltazar Attending Unavailable Vinayak Baltazar Attending Unavailable Sami Mccarty MD Attending Provider Sami Mccarty Attending Unavailable Sami Mccarty Ad[facility] Unavailable [facility], Dedrick Majano Admitting Unavailable NON STAFF Primary Care Unavailable NON STAFF Primary Care Unavailable Carol Vidal Attending Unavailable Carol Vidal Admitting Unavailable Allergies Allergy Classification Reported Allergen(s) Allergy Type Date of Onset Reaction(s) Facility (10 sources) NITROFURANTOIN, MACROCRYSTALS / Nitrofurantoin, Monohydrate; Translations: [nitrofurantoin] Drug Allergy 05-01-20 18 Neck swelling (finding), Swelling [facility] (2 sources) Albuterol Drug Allergy [facility] Comment on above: NEED TO CUT DOWN ADR ENALIN TO PREVENT SEIZURES (3 sources) Bee/Wasp/Ant venom; Translations: [Bee Stings] Allergy to substance Nausea, Swelling [facility] (2 sources) PECANS 1 Food allergy [facility] Comment on above: AIRWAY CONSTRICTION (2 sources) bee venom Drug allergy (disorder) 06-09-20 15 [facility] Repository (2 sources) egg extract Drug Allergy 06-09-20 15 [facility] Repository (4 sources) Nitrofurantoin; Translations: [Macrobid] Drug Allergy 05-02-20 12 [facility] Repository (2 sources) pecan pollen extract Drug Allergy [facility] (4 sources) tree nut, unspecified; Translations: [TREE NUT] Drug allergy (disorder) 06-09-20 15 [facility] Repository (16 sources) Albuterol; Translations: [albuterol] Drug Allergy 07-16-20 17 Other, Other (See Comments) [facility] Repository (12 sources) Honey bee venom Allergy to substance 04-05-20 24 [facility] (12 sources) Nitrofurantoin Drug Allergy 05-01-20 18 Swelling [facility] (12 sources) Nitrofurantoin Drug Allergy 04-05-20 24 [facility] (12 sources) Egg-Derived Products Drug Allergy 04-05-20 24 [facility] (16 sources) Other; Translations: [OTHER] Propensity to adverse reactions 05-13-20 05 [facility] (2 sources) NITROFURANTOIN MONOHYD/M-CRYST; Translations: [NITROFURANTOIN MONOHYD/M-CRYST] Propensity to adverse reactions to drug (disorder) 05-01-20 [facility] Repository (2 sources) BEE VENOM PROTEIN (HONEY BEE); Translations: [BEE VENOM PROTEIN (HONEY BEE)] Propensity to adverse reactions to drug (disorder) 04-05-20 [facility] Repository (1 source) Egg; Translations: [Eggs] Food allergy (disorder) [facility] Repository (1 source) PECANS; Translations: [PECANS] Food allergy (disorder) [facility] Repository (1 source) Nitrofurantoin Drug Allergy 10-01-20 [facility] Repository Medications Current Medications Medication [...] take 1 tablet by mouth in the wa rning polycarbophil (FIBERCON) 625 mg tablet Take [...] (two) times a day Active lactobacillus acidophilus [id number] unt / pectin 100 mg oral tablet [...] Status: Ordered take 1 capsule by mo [facility] every twenty-four hours Omeprazole 40 MG 1 cap(s) p.o. Once a da y Active peg 3350-sod sulf,jgqt-ltk-zyz 178.7-7.3-0.5 gram recon soln (1 source) Start: 10-13-2024 End: 10-14-2024 peg 3350-sod sulf,paqt-kge-akd 178.7-7.3-0.5 gram recon soln Indications: Positive fecal [...] 11-01-2024 Chronic Other aftercare (1 source) Other half-way (current) drug therapy; Translations: [OTH [facility] CURRENT DRUG THERAPY] Onset: 2 Episodic Other [...] bacterial skin contaminants 2 Days PERFORMED BY: [place] [id number] PATHOLOGIST EMERGENCY MEDICINE PHYSICIAN ASSISTANT ANDRY WEIR M.D. Normal [facility] Comment on above: Performed By: #### T PO, C3, CHROMATIN, C4, THYGLOB AB, CH50, ROSS #### [facility] , ROSS Antinuclear Antibodieson 02-01-2025 Antinuclear Abs, IFA Negative Normal . [facility] Comment on above: Result Comment: Nega tive <1:80 Borderline 1:80 Positive >1:80 ICAP nomenclature: [id number] For more information about Hep-2 cell patterns use ANApatterns.org, the official website for the International Consensus on Antinuclear Antibody (ROSS) Patterns (ICAP). Performed at: [address] [id number] Welfare Officer: Bowen Mcleod PhD, Phone: [phone] Performed By: #### T PO, C3, CHROMATIN, C4, THYGLOB AB, CH50, ROSS #### [facility] , Alanine aminotransferase [En zymatic activity/volume] in Serum or PlasmaOrdered By: Carol Vidal on 02-01-2025 ALT [Catalytic activity/Vol] Alanine aminotransferase [Enzymatic activity/volume] in Serum or Plasma 7-52 [facility] Albumin [Mass/volume] in Ser um or Plasma by Bromocresol green (BCG) dye binding methoOrdered By: Carol Vidal on 02-01-2025 Albumin BCG dye [Mass/Vol] Albumin [Mass/volume] in Serum or Plasma by Bromocresol green (BCG) dye binding metho 3.5-5.7 [facility] Aldolaseon 02-01-2025 Aldolase 4.0 U/L Normal 3.3-10.3 [facility] Comment on above: Result Comment: Perf ormed at: [facility] [address] [id number] Welfare Officer: Bowen Mcleod PhD, Phone: [phone] PERFORMED BY: [place] [id number] PATHOLOGIST EMERGENCY MEDICINE PHYSICIAN ASSISTANT NADYA FREDERICK M.D. Performed By: #### T PO, C3, CHROMATIN, C4, THYGLOB AB, CH50, ROSS #### [facility] , Alkaline phosphatase [Enzyma tic activity/volume] in Serum or PlasmaOrdered By: Carol Vidal on 02-01-2025 ALP [Catalytic activity/Vol] Alkaline phosphatase [Enzymatic activity/volume] in Serum or Plasma 34-104 [facility] Antithyroglobulin Abon 02-01 Antithyroglobulin Ab <1.0 Normal 0.0-0.9 [facility] Comment on above: Result Comment: Thyr oglobulin Antibody measured by [email or web address]@ Methodology It should be noted that the presence of thyroglobulin antibodies may not be pathogenic nor diagnostic, especially at very low levels. The assay head wrestling coach has found that four percent of individuals without evidence of thyroid disease or autoimmunity will have positive TgAb levels up to 4 IU/mL. Performed at: [facility] [address] [id number] Welfare Officer: Bowen Mcleod PhD, Phone: [phone] Performed By: #### T PO, C3, CHROMATIN, C4, THYGLOB AB, CH50, ROSS #### [facility] , Appearance of UrineOrdered B y: Carol Vidal on 02-01-2025 Appearance (U) Urine appearance Clear [facility] Aspartate aminotransferase [ Enzymatic activity/volume] in Serum or PlasmaOrdered By: Carol Vidal on 02-01-2025 AST [Catalytic activity/Vol] Aspartate aminotransferase [Enzymatic activity/volume] in Serum or Plasma 13-39 [facility] Bacteria [Presence] in Urine by AutomatedOrdered By: Carol Vidal on 02-01-2025 Bacteria Auto Ql (U) Bacteria [Presence] in Urine by Automated None Seen [facility] Basophils Auto (Bld) [#/Vol] Ordered By: Carol Vidal on 02-01-2025 Basophils (Bld) [#/Vol] Automated basophil count 0.0-0.2 [facility] Basophils/100 WBC Auto (Bld) Ordered By: Carol Vidal on 02-01-2025 Basophils/100 WBC (Bld) Automated basophil % . [facility] Bilirubin Test strip Ql (U)O rdered By: Carol Vidal on 02-01-2025 Bilirubin Ql (U) Bilirubin.total [Pre sence] in Urine by Test strip Negative [facility] Bilirubin.total [Mass/volume ] in Serum or PlasmaOrdered By: Carol Vidal on 02-01-2025 Bilirubin [Mass/Vol] Bilirubin.total [Mass/volume] in Serum or Plasma High 0.3-1.0 [facility] Comment on above: Samples from patient s who have taken Naproxen have shown spurious elevation in Total Bilirubin levels. A metabolite of Naproxen, O-desmethylnaproxen, has been shown to interfere with the Yvan-Shree method for measuring Total Bilirubin. C reactive protein [Mass/vol ume] in Serum or PlasmaOrdered By: Carol Vidal on 02-01-2025 CRP [Mass/Vol] C reactive protein [Mass/volume] in Serum or Plasma 0.0-0.5 [facility] C-Reactive Proteinon 025 CRP [Mass/Vol] mg/L Normal 0.0-0.5 [facility] Comment on above: Performed By: #### T PO, C3, CHROMATIN, C4, THYGLOB AB, CH50, ROSS #### [facility] , Calcium [Mass/volume] in Ser um or PlasmaOrdered By: Carol Vidal on 02-01-2025 Calcium [Mass/Vol] Calcium [Mass/volume ] in Serum or Plasma 8.6-10.3 [facility] Carbon dioxide, total [Moles /volume] in Serum or PlasmaOrdered By: Carol Vidal on 02-01-2025 CO2 [Moles/Vol] Carbon dioxide, tota l [Moles/volume] in Serum or Plasma 21.0-31.0 [facility] Chloride [Moles/volume] in S altagracia or PlasmaOrdered By: Carol Vidal on 02-01-2025 Chloride [Moles/Vol] Chloride [Moles/vol ume] in Serum or Plasma 98-107 [facility] Chromatin Antibodyon 025 Chromatin Antibody <0.2 Normal 0.0-0.9 [facility] Comment on above: Result Comment: Perf ormed at: - [facility] [address] [id number] Welfare Officer: Bowen Mcleod PhD, Phone: [phone] PERFORMED BY: [address] [place] [id number] PATHOLOGIST EMERGENCY MEDICINE PHYSICIAN ASSISTANT NADYA FREDERICK M.D. Performed By: #### T PO, C3, CHROMATIN, C4, THYGLOB AB, CH50, ROSS #### [facility] , Coagulation Profileon 2024 aPTT Coag (Bld) [Time] 29.2 s Normal 25.1-36.5 [facility] Comment on above: Result Comment: A he matocrit value greater than 55% may lead to inaccurate results in coagulation testing. Patients having hematocrit values >55% require a special collection tube for coagulation studies. Please contact the laboratory at [phone] for redraw instructions. PERFORMED BY: [address] [place] [address] PATHOLOGIST EMERGENCY MEDICINE PHYSICIAN ASSISTANT NADYA FREDERICK M.D. Performed By: #### T PO, C3, CHROMATIN, C4, THYGLOB AB, CH50, ROSS #### [facility] , INR Coag (PPP) [Relative time] 0.9 {INR} Normal [facility] Comment on above: [...] (PPP) [Time] 10.8 s Normal 9.0-12.9 [facility] Comment on above: Result Comment: A he matocrit value greater than 55% may lead to inaccurate results in coagulation testing. Patients having hematocrit values >55% require a special collection tube for coagulation studies. Please contact the laboratory at [phone] for redraw instructions. Performed By: #### T PO, C3, CHROMATIN, C4, THYGLOB AB, CH50, ROSS #### [facility] , Color Auto (U)Ordered By: Anna Vidal on 02-01-2025 Color (U) Color of Urine by Auto Yellow [facility] Complement C3on 02-01-2025 Complement C3 135 mg/dL Normal 82-167 [facility] Comment on above: Result Comment: Perf ormed at: - [facility] [address] [id number] Welfare Officer: Bowen Mcleod PhD, Phone: [phone] Performed By: #### T PO, C3, CHROMATIN, C4, THYGLOB AB, CH50, ROSS #### [facility] , Complement C4on 02-01-2025 Complement C4 21 mg/dL Normal 12-38 [facility] Comment on above: Performed By: #### T PO, C3, CHROMATIN, C4, THYGLOB AB, CH50, ROSS #### [facility] , Complement Total (CH50)on Complement Total (CH50) 57 Normal >41 [facility] Comment on above: [...] determine out of range values. Performed at: [address] [id number] Welfare Officer: Bowen Mcleod PhD, Phone: [phone] PERFORMED BY: [place] [id number] PATHOLOGIST EMERGENCY MEDICINE PHYSICIAN ASSISTANT NADYA FREDERICK M.D. Performed By: #### T PO, C3, CHROMATIN, C4, THYGLOB AB, CH50, ROSS #### [facility] , Complete Blood Count Auto Di ffon 02-01-2025 Basophils (Bld) [#/Vol] 0.0 10*3/uL Normal 0.0-0.2 [facility] Comment on above: Performed By: #### T PO, C3, CHROMATIN, C4, THYGLOB AB, CH50, ROSS #### [facility] , Basophils/100 WBC (Bld) 0.3 % Normal . [facility] Comment on above: Performed By: #### T PO, C3, CHROMATIN, C4, THYGLOB AB, CH50, ROSS #### [facility] , Eosinophils (Bld) [#/Vol] 0.1 10*3/uL Normal 0.0-0.45 [facility] Comment on above: Performed By: #### T PO, C3, CHROMATIN, C4, THYGLOB AB, CH50, ROSS #### [facility] , Eosinophils/100 WBC (Bld) 1.3 % Normal . [facility] Comment on above: Performed By: #### T PO, C3, CHROMATIN, C4, THYGLOB AB, CH50, ROSS #### [facility] , Erythrocyte distribution width (RBC) [Ratio] 12.5 % Normal 11.9-15.3 [facility] Comment on above: Performed By: #### T PO, C3, CHROMATIN, C4, THYGLOB AB, CH50, ROSS #### [facility] , Hematocrit (Bld) [Volume fraction] 39.2 % Normal 34.0-46.4 [facility] Comment on above: Performed By: #### T PO, C3, CHROMATIN, C4, THYGLOB AB, CH50, ROSS #### [facility] , Hemoglobin (Bld) [Mass/Vol] 13.5 g/dL Normal 11.8-15.4 [facility] Comment on above: Performed By: #### T PO, C3, CHROMATIN, C4, THYGLOB AB, CH50, ROSS #### [facility] , Lymphocytes (Bld) [#/Vol] 3.6 10*3/uL Normal 1.00-4.8 [facility] Comment on above: Performed By: #### T PO, C3, CHROMATIN, C4, THYGLOB AB, CH50, ROSS #### [facility] , Lymphocytes/100 WBC (Bld) 50.6 % Normal . [facility] Comment on above: Performed By: #### T PO, C3, CHROMATIN, C4, THYGLOB AB, CH50, ROSS #### [facility] , MCH (RBC) [Entitic mass] 31.1 pg Normal 24.7-34.3 [facility] Comment on above: Performed By: #### T PO, C3, CHROMATIN, C4, THYGLOB AB, CH50, ROSS #### [facility] , MCV (RBC) [Entitic vol] 90.2 fL Normal 80-100 [facility] Comment on above: Performed By: #### T PO, C3, CHROMATIN, C4, THYGLOB AB, CH50, ROSS #### [facility] , Mean Corpuscular HGB Conc 34.5 g/dL Normal 32.0-35.0 [facility] Comment on above: Performed By: #### T PO, C3, CHROMATIN, C4, THYGLOB AB, CH50, ROSS #### [facility] , Monocytes (Bld) [#/Vol] 0.4 10*3/uL Normal 0.0-0.8 [facility] Comment on above: Performed By: #### T PO, C3, CHROMATIN, C4, THYGLOB AB, CH50, ROSS #### [facility] , Monocytes/100 WBC (Bld) 6.1 % Normal . [facility] Comment on above: Performed By: #### T PO, C3, CHROMATIN, C4, THYGLOB AB, CH50, ROSS #### [facility] , Neutrophils (Bld) [#/Vol] 3.0 10*3/uL Normal 1.8-7.7 [facility] Comment on above: Performed By: #### T PO, C3, CHROMATIN, C4, THYGLOB AB, CH50, ROSS #### [facility] , Neutrophils/100 WBC (Bld) 41.7 % Normal . [facility] Comment on above: Performed By: #### T PO, C3, CHROMATIN, C4, THYGLOB AB, CH50, ROSS #### [facility] , NRBC% 0.0 /100{WBC} Normal 0-0.5 [facility] Comment on above: Performed By: #### T PO, C3, CHROMATIN, C4, THYGLOB AB, CH50, ROSS #### [facility] , Platelet mean volume (Bld) [Entitic vol] 9.1 fL Normal 6.3-10.7 [facility] Comment on above: Performed By: #### T PO, C3, CHROMATIN, C4, THYGLOB AB, CH50, ROSS #### [facility] , Platelets (Bld) [#/Vol] 251 10*3/uL Normal 150-450 [facility] Comment on above: Performed By: #### T PO, C3, CHROMATIN, C4, THYGLOB AB, CH50, ROSS #### [facility] , RBC (Bld) [#/Vol] 4.34 10*6/uL Normal 3.60-5.00 [facility] Comment on above: Performed By: #### T PO, C3, CHROMATIN, C4, THYGLOB AB, CH50, ROSS #### [facility] , WBC (Bld) [#/Vol] 7.2 10*3/uL Normal 3.8-11.6 [facility] Comment on above: Performed By: #### T PO, C3, CHROMATIN, C4, THYGLOB AB, CH50, ROSS #### [facility] , Comprehensive Metabolic Pane lilly 02-01-2025 Albumin [Mass/Vol] 4.7 g/dL Normal 3.5-5.7 [facility] Comment on above: Performed By: #### T PO, C3, CHROMATIN, C4, THYGLOB AB, CH50, ROSS #### [facility] , Albumin/Globulin [Mass ratio] 2.0 {ratio} Normal [facility] Comment on above: Performed By: #### T PO, C3, CHROMATIN, C4, THYGLOB AB, CH50, ROSS #### [facility] , ALP [Catalytic activity/Vol] 54 U/L Normal 34-104 [facility] Comment on above: Performed By: #### T PO, C3, CHROMATIN, C4, THYGLOB AB, CH50, ROSS #### [facility] , ALT [Catalytic activity/Vol] 14 U/L Normal 7-52 [facility] Comment on above: Performed By: #### T PO, C3, CHROMATIN, C4, THYGLOB AB, CH50, ROSS #### [facility] , Anion gap [Moles/Vol] 9.2 mmol/L Normal 6.0-15.0 [facility] Comment on above: Performed By: #### T PO, C3, CHROMATIN, C4, THYGLOB AB, CH50, ROSS #### [facility] , AST [Catalytic activity/Vol] 15 U/L Normal 13-39 [facility] Comment on above: Performed By: #### T PO, C3, CHROMATIN, C4, THYGLOB AB, CH50, ROSS #### [facility] , Bilirubin [Mass/Vol] 1.3 mg/dL High 0.3-1.0 [facility] Comment on above: [...] Calcium [Mass/Vol] 9.5 mg/dL Normal 8.6-10.3 [facility] Comment on above: Performed By: #### T PO, C3, CHROMATIN, C4, THYGLOB AB, CH50, ROSS #### [facility] , Chloride [Moles/Vol] 104 mmol/L Normal 98-107 [facility] Comment on above: Performed By: #### T PO, C3, CHROMATIN, C4, THYGLOB AB, CH50, ROSS #### [facility] , CO2 [Moles/Vol] 29.5 mmol/L Normal 21.0-31.0 [facility] Comment on above: Performed By: #### T PO, C3, CHROMATIN, C4, THYGLOB AB, CH50, ROSS #### [facility] , Creatinine [Mass/Vol] 0.73 mg/dL Normal 0.60-1.20 [facility] Comment on above: Performed By: #### T PO, C3, CHROMATIN, C4, THYGLOB AB, CH50, ROSS #### [facility] , GFR/1.73 sq M.predicted MDRD (S/P/Bld) [Vol rate/Area] mL/min/{1.73_m2} Normal [facility] Comment on above: Performed By: #### T PO, C3, CHROMATIN, C4, THYGLOB AB, CH50, ROSS #### [facility] , Globulin (S) [Mass/Vol] 2.3 g/dL Normal [facility] Comment on above: Performed By: #### T PO, C3, CHROMATIN, C4, THYGLOB AB, CH50, ROSS #### [facility] , Glucose [Mass/Vol] 79 mg/dL Normal 70-100 [facility] Comment on above: Result Comment: [facility] Glucose Reference Range is dependent on time and content of last meal. Glucose of more than 200 mg/dL in a nonstressed, ambulatory subject supports the diagnosis of Diabetes Mellitus. ADA recommended reference range Performed By: #### T PO, C3, CHROMATIN, C4, THYGLOB AB, CH50, ROSS #### [facility] , Potassium [Moles/Vol] 3.7 mmol/L Normal 3.5-5.1 [facility] Comment on above: Performed By: #### T PO, C3, CHROMATIN, C4, THYGLOB AB, CH50, ROSS #### [facility] , Protein [Mass/Vol] 7.0 g/dL Normal 6.4-8.9 [facility] Comment on above: Performed By: #### T PO, C3, CHROMATIN, C4, THYGLOB AB, CH50, ROSS #### [facility] , Sodium [Moles/Vol] 139 mmol/L Normal 136-145 [facility] Comment on above: Performed By: #### T PO, C3, CHROMATIN, C4, THYGLOB AB, CH50, ROSS #### [facility] , Urea nitrogen [Mass/Vol] 9 mg/dL Normal 7-25 [facility] Comment on above: Performed By: #### T PO, C3, CHROMATIN, C4, THYGLOB AB, CH50, ROSS #### [facility] , Creatine Kinaseon 02-01-2025 CK [Catalytic activity/Vol] 77 U/L Normal 30-223 [facility] Comment on above: Result Comment: PERF ORMED BY: [facility] [place]inic[place] [address] PATHOLOGIST EMERGENCY MEDICINE PHYSICIAN ASSISTANT NADYA FREDERICK M.D. Performed By: #### T PO, C3, CHROMATIN, C4, THYGLOB AB, CH50, ROSS #### [facility] , Creatine kinase [Enzymatic a ctivity/volume] in Serum or PlasmaOrdered By: Carol Vidal on 02-01-2025 CK [Catalytic activity/Vol] Creatine kinase [Enzymatic activity/volume] in Serum or Plasma 30-223 [facility] Creatinine [Mass/volume] in Serum or PlasmaOrdered By: Carol Vidal on 02-01-2025 Creatinine [Mass/Vol] Creatinine [Mass/v olume] in Serum or Plasma 0.60-1.20 [facility] Dipstick and Microscopicon 0 02-01-2025 Appearance (U) Clear Normal Clear [facility] Comment on above: Order Comment: Name Collection Type:: Clean-Voided Midstream Performed By: #### T PO, C3, CHROMATIN, C4, THYGLOB AB, CH50, ROSS #### [facility] , Bacteria,Urine None Seen Normal None Seen [facility] Comment on above: Order Comment: Name Collection Type:: Clean-Voided Midstream Performed By: #### T PO, C3, CHROMATIN, C4, THYGLOB AB, CH50, ROSS #### [facility] , Bilirubin,Urine Negative Normal Negative [facility] Comment on above: Order Comment: Name Collection Type:: Clean-Voided Midstream Performed By: #### T PO, C3, CHROMATIN, C4, THYGLOB AB, CH50, ROSS #### [facility] , Color (U) Yellow Normal Yellow [facility] Comment on above: Order Comment: Name Collection Type:: Clean-Voided Midstream Performed By: #### T PO, C3, CHROMATIN, C4, THYGLOB AB, CH50, ROSS #### [facility] , Glucose Ql (U) Normal Normal Normal [facility] Comment on above: Order Comment: Name Collection Type:: Clean-Voided Midstream Performed By: #### T PO, C3, CHROMATIN, C4, THYGLOB AB, CH50, ROSS #### [facility] , Hyaline Casts,Urine None Normal 0-8 [facility] Comment on above: Order Comment: Name Collection Type:: Clean-Voided Midstream Performed By: #### T PO, C3, CHROMATIN, C4, THYGLOB AB, CH50, ROSS #### [facility] , Ketones Ql (U) Negative Normal Negative [facility] Comment on above: Order Comment: Name Collection Type:: Clean-Voided Midstream Performed By: #### T PO, C3, CHROMATIN, C4, THYGLOB AB, CH50, ROSS #### [facility] , Leukocyte esterase Test strip Ql (U) Negative Normal Negative [facility] Comment on above: Order Comment: Name Collection Type:: Clean-Voided Midstream Performed By: #### T PO, C3, CHROMATIN, C4, THYGLOB AB, CH50, ROSS #### [facility] , Mucus,Urine 3+ Critically abnormal [facility] [facility] Comment on above: Order Comment: Name Collection Type:: Clean-Voided Midstream Result Comment: PERF ORMED BY: [facility] [place] [address] PATHOLOGIST EMERGENCY MEDICINE PHYSICIAN ASSISTANT NADYA FREDERICK M.D. Performed By: #### T PO, C3, CHROMATIN, C4, THYGLOB AB, CH50, ROSS #### [facility] , Nitrite,Urine Negative Normal Negative [facility] Comment on above: Order Comment: Name Collection Type:: Clean-Voided Midstream Performed By: #### T PO, C3, CHROMATIN, C4, THYGLOB AB, CH50, ROSS #### [facility] , Occult Blood,Urine Negative Normal Negative [facility] Comment on above: Order Comment: Name Collection Type:: Clean-Voided Midstream Performed By: #### T PO, C3, CHROMATIN, C4, THYGLOB AB, CH50, ROSS #### [facility] , pH (U) 6.0 [pH] Normal 5.0-9.0 [facility] Comment on above: Order Comment: Name Collection Type:: Clean-Voided Midstream Performed By: #### T PO, C3, CHROMATIN, C4, THYGLOB AB, CH50, ROSS #### [facility] , Protein,Urine Trace High Negative [facility] Comment on above: Order Comment: Name Collection Type:: Clean-Voided Midstream Performed By: #### T PO, C3, CHROMATIN, C4, THYGLOB AB, CH50, ROSS #### [facility] , RBC,Urine 1-2 Normal 0-4 [facility] Comment on above: Order Comment: Name Collection Type:: Clean-Voided Midstream Performed By: #### T PO, C3, CHROMATIN, C4, THYGLOB AB, CH50, ROSS #### [facility] , Specificy [place],Urine 1.021 Normal 1.001-1.03 0 [facility] Comment on above: Order Comment: Name Collection Type:: Clean-Voided Midstream Performed By: #### T PO, C3, CHROMATIN, C4, THYGLOB AB, CH50, ROSS #### [facility] , Squamous Epithelial Cell,Urine 1-2 Normal 0-2 [facility] Comment on above: Order Comment: Name Collection Type:: Clean-Voided Midstream Performed By: #### T PO, C3, CHROMATIN, C4, THYGLOB AB, CH50, ROSS #### [facility] , Urobilinogen,Urine Normal Normal Normal [facility] Comment on above: Order Comment: Name Collection Type:: Clean-Voided Midstream Performed By: #### T PO, C3, CHROMATIN, C4, THYGLOB AB, CH50, ROSS #### [facility] , WBC,Urine 3-4 Normal 0-4 [facility] Comment on above: Order Comment: Name Collection Type:: Clean-Voided Midstream Performed By: #### T PO, C3, CHROMATIN, C4, THYGLOB AB, CH50, ROSS #### [facility] , Eosinophils Auto (Bld) [#/Vo l]Ordered By: Carol Vidal on 02-01-2025 Eosinophils (Bld) [#/Vol] Automated eosinophil count 0.0-0.45 [facility] Eosinophils/100 WBC Auto (Bl d)Ordered By: Carol Vidal on 02-01-2025 Eosinophils/100 WBC (Bld) Automated eosinophil % . [facility] Epithelial cells.squamous [# /area] in Urine sediment by Automated countOrdered By: Carol Vidal on 02-01-2025 Epithelial cells.squamous Auto (Urine sed) [#/Area] Epithelial cells.squamous [#/area] in Urine sediment by Automated count 0-2 [facility] Erythrocyte Sedimentation Ra doroteo 02-01-2025 ESR (Bld) [Velocity] 8 mm/h Normal 0-19 [facility] Comment on above: Result Comment: PERF ORMED BY: [facility] [address] [place] [address] PATHOLOGIST EMERGENCY MEDICINE PHYSICIAN ASSISTANT NADYA FREDERICK M.D. Performed By: #### T PO, C3, CHROMATIN, C4, THYGLOB AB, CH50, ROSS #### [facility] , Erythrocyte distribution wid th Auto (RBC) [Ratio]Ordered By: Carol Vidal on 02-01-2025 Erythrocyte distribution width (RBC) [Ratio] Erythrocyte distribution width [Ratio] by Automated count 11.9-15.3 [facility] Erythrocyte sedimentation ra te by Photometric methodOrdered By: Carol Vidal on 02-01-2025 ESR Photometric method (Bld) [Velocity] Erythrocyte sedimentation rate by Photometric method 0-19 [facility] Erythrocytes [#/area] in Uri ne sediment by Automated countOrdered By: Carol Vidal on 02-01-2025 RBC Auto (Urine sed) [#/Area] Erythrocytes [#/area] in Urine sediment by Automated count 0-4 [facility] Free T4 (Free Thyroxine)on 0 02-01-2025 Free T4 [Mass/Vol] 0.96 ng/dL Normal 0.61-1.12 [facility] Comment on above: Performed By: #### T PO, C3, CHROMATIN, C4, THYGLOB AB, CH50, ROSS #### [facility] , Globulin Calc (S) [Mass/Vol] Ordered By: Carol Vidal on 02-01-2025 Globulin (S) [Mass/Vol] Serum globulin measurement by calculation (mass/volume) [facility] Glucose [Mass/volume] in Ser um or PlasmaOrdered By: Carol Vidal on 02-01-2025 Glucose [Mass/Vol] Glucose [Mass/volume ] in Serum or Plasma 70-100 [facility] Comment on above: ADA recommended [...] [Mass/volume] in Urine by Test strip Normal [facility] Hematocrit Auto (Bld) [Volum e fraction]Ordered By: Carol Vidal on 02-01-2025 Hematocrit (Bld) [Volume fraction] Hematocrit [Volume Fraction] of Blood by Automated count 34.0-46.4 [facility] Hemoglobin Test strip Ql (U) Ordered By: Carol Vidal on 02-01-2025 Hemoglobin Ql (U) Hemoglobin [Presence ] in Urine by Test strip Negative [facility] Hemoglobin [Mass/volume] in BloodOrdered By: Carol Vidal on 02-01-2025 Hemoglobin (Bld) [Mass/Vol] Hemoglobin [Mass/volume] in Blood 11.8-15.4 [facility] Hyaline casts [#/area] in Ur ine sediment by Automated countOrdered By: Carol Vidal on 02-01-2025 Hyaline casts Auto (Urine sed) [#/Area] Hyaline casts [#/area] in Urine sediment by Automated count 0-8 [facility] INR in Platelet poor plasma by Coagulation assayOrdered By: Carol Vidal on 02-01-2025 INR Coag (PPP) [Relative time] INR in Platelet poor plasma by Coagulation assay [facility] Comment on above: INR Therapeutic Rang e [...] Immunofixation, (ASHLEY), Urine Comment Normal . [facility] Comment on above: Result Comment: No m onoclonality detected. Performed at: [facility] [address] [id number] Welfare Officer: Bowen Mcleod PhD, Phone: [phone] Performed By: #### T PO, C3, CHROMATIN, C4, THYGLOB AB, CH50, ROSS #### [facility] , Immunofixation,Serumon 02-01 Immunofixation, Serum Comment Normal . [facility] Comment on above: Result Comment: No m onoclonality detected. Performed By: #### T PO, C3, CHROMATIN, C4, THYGLOB AB, CH50, ROSS #### [facility] , Immunoglobulin A, Serum 201 mg/dL Normal 87-352 [facility] Comment on above: Performed By: #### T PO, C3, CHROMATIN, C4, THYGLOB AB, CH50, ROSS #### [facility] , Immunoglobulin G 983 mg/dL Normal 586-1602 [facility] Comment on above: Performed By: #### T PO, C3, CHROMATIN, C4, THYGLOB AB, CH50, ROSS #### [facility] , Immunoglobulin M, Serum 75 mg/dL Normal 26-217 [facility] Comment on above: Result Comment: Perf ormed at: - [facility] [address] [id number] Welfare Officer: Bowen Mcleod PhD, Phone: [phone] Performed By: #### T PO, C3, CHROMATIN, C4, THYGLOB AB, CH50, ROSS #### [facility] , Ketones Test strip Ql (U)Ord ered By: Carol Vidal on 02-01-2025 Ketones Ql (U) Ketones [Presence] i n Urine by Test strip Negative [facility] Leukocyte esterase [Presence ] in Urine by Test stripOrdered By: Carol Vidal on 02-01-2025 Leukocyte esterase Test strip Ql (U) Leukocyte esterase [Presence] in Urine by Test strip Negative [facility] Leukocytes [#/area] in Urine sediment by Automated countOrdered By: Carol Vidal on 02-01-2025 WBC Auto (Urine sed) [#/Area] Leukocytes [#/area] in Urine sediment by Automated count 0-4 [facility] Leukocytes [#/volume] correc radha for nucleated erythrocytes in Blood by Automated counOrdered By: Carol Vidal on 02-01-2025 WBC corrected for nucl RBC Auto (Bld) [#/Vol] Leukocytes [#/volume] corrected for nucleated erythrocytes in Blood by Automated coun 3.8-11.6 [facility] Lupus Anticoagulant Compon 0 02-01-2025 Dilute Prothrombin Time (dPt) 38.3 Normal 0.0-47.6 [facility] Comment on above: Performed By: #### L UPANTCOAG #### [facility] , dPT Confirm Ratio 0.76 Normal 0.00-1.34 [facility] Comment on above: Performed By: #### L UPANTCOAG #### [facility] , DRVVT Lupus 34.4 Normal 0.0-47.0 [facility] Comment on above: Performed By: #### L UPANTCOAG #### [facility] , Interpretation Comment: Normal . [facility] Comment on above: Result Comment: No l upus anticoagulant was detected. Performed at: - [facility] [id number] Welfare Officer: Raegan Gong MD, Phone: [phone] PERFORMED BY: [facility] [address] [place] [address] PATHOLOGIST EMERGENCY MEDICINE PHYSICIAN ASSISTANT NADYA FREDERICK M.D. Performed By: #### L UPANTCOAG #### [facility] , PTT-LA 42.7 Normal 0.0-43.5 [facility] Comment on above: Performed By: #### L UPANTCOAG #### [facility] , Thrombin Time 14.6 Normal 0.0-23.0 [facility] Comment on above: Performed By: #### L UPANTCOAG #### [facility] , Lymphocytes Auto (Bld) [#/Vo l]Ordered By: Carol Vidal on 02-01-2025 Lymphocytes (Bld) [#/Vol] Lymphocytes [#/volume] in Blood by Automated count 1.00-4.8 [facility] Lymphocytes/100 WBC Auto (Bl d)Ordered By: Carol Vidal on 02-01-2025 Lymphocytes/100 WBC (Bld) Lymphocytes/100 leukocytes in Blood by Automated count . [facility] MCH Auto (RBC) [Entitic mass ]Ordered By: Carol Vidal on 02-01-2025 MCH (RBC) [Entitic mass] MCH [Entitic mass] by Automated count 24.7-34.3 [facility] MCHC Auto (RBC) [Mass/Vol]Or dered By: Carol Vidal on 02-01-2025 MCHC (RBC) [Mass/Vol] MCHC [Mass/volume] by Automated count 32.0-35.0 [facility] MCV Auto (RBC) [Entitic vol] Ordered By: Carol Vidal on 02-01-2025 MCV (RBC) [Entitic vol] MCV [Entitic volume] by Automated count 80-100 [facility] Monocytes Auto (Bld) [#/Vol] Ordered By: Carol Vidal on 02-01-2025 Monocytes (Bld) [#/Vol] Automated blood monocyte count 0.0-0.8 [facility] Monocytes/100 WBC Auto (Bld) Ordered By: Carol Vidal on 02-01-2025 Monocytes/100 WBC (Bld) Automated monocyte % . [facility] Mucus [Presence] in Urine by AutomatedOrdered By: Carol Vidal on 02-01-2025 Mucus Auto Ql (U) Mucus [Presence] in Urine by Automated Abnormal [facility] Neutrophils Auto (Bld) [#/Vo l]Ordered By: Carol Vidal on 02-01-2025 Neutrophils (Bld) [#/Vol] Neutrophils [#/volume] in Blood by Automated count 1.8-7.7 [facility] Neutrophils/100 WBC Auto (Bl d)Ordered By: Carol Vidal on 02-01-2025 Neutrophils/100 WBC (Bld) Automated neutrophil % . [facility] Nitrite Test strip Ql (U)Ord ered By: Carol Vidal on 02-01-2025 Nitrite Ql (U) Nitrite [Presence] i n Urine by Test strip Negative [facility] No Panel InformationOrdered By: Carol Vidal on 02-01-2025 Estimated GFR (CKD-EPI) > 60.0 mL/Min [facility] Creatinine Clearance (Chem N/A [facility] Nucleated erythrocytes [Pres ence] in Blood by Automated countOrdered By: Carol Vidal on 02-01-2025 Nucleated RBC Auto Ql (Bld) Nucleated erythrocytes [Presence] in Blood by Automated count 0-0.5 [facility] Platelet mean volume Auto (B ld) [Entitic vol]Ordered By: Carol Vidal on 02-01-2025 Platelet mean volume (Bld) [Entitic vol] Platelet mean volume [Entitic volume] in Blood by Automated count 6.3-10.7 [facility] Platelets Auto (Bld) [#/Vol] Ordered By: Carol Vidal on 02-01-2025 Platelets (Bld) [#/Vol] Platelets [#/volume] in Blood by Automated count 150-450 [facility] Potassium [Moles/volume] in Serum or PlasmaOrdered By: Carol Vidal on 02-01-2025 Potassium [Moles/Vol] Potassium [Moles/v olume] in Serum or Plasma 3.5-5.1 [facility] Protein Electro, Random Urin michael 02-01-2025 Albumin, Urine 41.6 % Normal . [facility] Comment on above: Performed By: #### T PO, C3, CHROMATIN, C4, THYGLOB AB, CH50, ROSS #### [facility] , Qbgnz-8-Wkutqxyo, Urine 1.3 % Normal . [facility] Comment on above: Performed By: #### T PO, C3, CHROMATIN, C4, THYGLOB AB, CH50, ROSS #### [facility] , Tybpu-5-Jcnqviih, Urine 22.3 % Normal . [facility] Comment on above: Performed By: #### T PO, C3, CHROMATIN, C4, THYGLOB AB, CH50, ROSS #### [facility] , Beta Globulin, Urine 24.6 % Normal . [facility] Comment on above: Performed By: #### T PO, C3, CHROMATIN, C4, THYGLOB AB, CH50, ROSS #### [facility] , Gamma Globulin, Urine 10.1 % Normal . [facility] Comment on above: Performed By: #### T PO, C3, CHROMATIN, C4, THYGLOB AB, CH50, ROSS #### [facility] , M-Saleem % Not Observed Normal Not Observed [facility] Comment on above: Performed By: #### T PO, C3, CHROMATIN, C4, THYGLOB AB, CH50, ROSS #### [facility] , Please Note: Comment Normal . [facility] Comment on above: Result Comment: Prot ein electrophoresis scan will follow via computer, mail, or field assessor delivery. PERFORMED BY: [facility] [place] [address] PATHOLOGIST EMERGENCY MEDICINE PHYSICIAN ASSISTANT NADYA FREDERICK M.D. Performed By: #### T PO, C3, CHROMATIN, C4, THYGLOB AB, CH50, ROSS #### [facility] , Protein (U) [Mass/Vol] 23.9 mg/dL Normal Not Estab. [facility] Comment on above: Performed By: #### T PO, C3, CHROMATIN, C4, THYGLOB AB, CH50, ROSS #### [facility] , Protein Electrophoresis, Ser umon 02-01-2025 Albumin [Mass/Vol] 4.2 g/dL Normal 2.9-4.4 [facility] Comment on above: Performed By: #### T PO, C3, CHROMATIN, C4, THYGLOB AB, CH50, ROSS #### [facility] , Albumin/Globulin [Mass ratio] 1.6 {ratio} Normal 0.7-1.7 [facility] Comment on above: Performed By: #### T PO, C3, CHROMATIN, C4, THYGLOB AB, CH50, ROSS #### [facility] , Lrbat-1-Vyityqvs 0.2 g/dL Normal 0.0-0.4 [facility] Comment on above: Performed By: #### T PO, C3, CHROMATIN, C4, THYGLOB AB, CH50, ROSS #### [facility] , Nieiz-0-Utxflmrv 0.6 g/dL Normal 0.4-1.0 [facility] Comment on above: Performed By: #### T PO, C3, CHROMATIN, C4, THYGLOB AB, CH50, ROSS #### [facility] , Beta Globulin 1.0 g/dL Normal 0.7-1.3 [facility] Comment on above: Performed By: #### T PO, C3, CHROMATIN, C4, THYGLOB AB, CH50, ROSS #### [facility] , Gamma Globulin 0.8 g/dL Normal 0.4-1.8 [facility] Comment on above: Performed By: #### T PO, C3, CHROMATIN, C4, THYGLOB AB, CH50, ROSS #### [facility] , Globulin (S) [Mass/Vol] 2.6 g/dL Normal 2.2-3.9 [facility] Comment on above: Performed By: #### T PO, C3, CHROMATIN, C4, THYGLOB AB, CH50, ROSS #### [facility] , M-Saleem Not Observed Normal Not Observed [facility] Comment on above: Performed By: #### T PO, C3, CHROMATIN, C4, THYGLOB AB, CH50, ROSS #### [facility] , Protein [Mass/Vol] 6.8 g/dL Normal 6.0-8.5 [facility] Comment on above: Performed By: #### T PO, C3, CHROMATIN, C4, THYGLOB AB, CH50, ROSS #### [facility] , SPE-Note Comment Normal . [facility] Comment on above: Result Comment: Prot ein electrophoresis scan will follow via computer, mail, or field assessor delivery. Performed at: [address] [id number] Welfare Officer: Bowen Mcleod PhD, Phone: [phone] PERFORMED BY: [address] [address] PATHOLOGIST EMERGENCY MEDICINE PHYSICIAN ASSISTANT NADYA FREDERICK M.D. Performed By: #### T [...] [Mass/volume ] in Serum or Plasma 6.4-8.9 [facility] Prothrombin time (PT)Ordered By: Carol Vidal on 02-01-2025 PT Coag (PPP) [Time] Prothrombin time (PT) 9.0- 12.9 [facility] Comment on above: A hematocrit value g reater than 55% may lead to inaccurate results in coagulation testing. Patients having hematocrit values >55% require a special collection tube for coagulation studies. Please contact the laboratory at [phone] for redraw instructions. RBC Auto (Bld) [#/Vol]Ordere d By: Carol Vidal on 02-01-2025 RBC (Bld) [#/Vol] Erythrocytes [#/volu me] in Blood by Automated count 3.60-5.00 [facility] RPR w/rfx to Quant TP Abson 02-01-2025 RPR, Rfx Quant RPR Non-Reactive Normal Non Reactive [facility] Comment on above: Result Comment: Perf ormed at: CB - [facility] [address] [id number] Welfare Officer: Bowen Mcleod PhD, Phone: [phone] PERFORMED BY: [address] [address] PATHOLOGIST EMERGENCY MEDICINE PHYSICIAN ASSISTANT NADYA FREDERICK M.D. Performed By: #### T PO, C3, CHROMATIN, C4, THYGLOB AB, CH50, ROSS #### [facility] , Serum or plasma albumin/glob ulin mass ratioOrdered By: Carol Vidal on 02-01-2025 Albumin/Globulin [Mass ratio] Serum or plasma albumin/globulin mass ratio [facility] Serum or plasma anion gap de terminationOrdered By: Carol Vidal on 02-01-2025 Anion gap [Moles/Vol] Serum or plasma an ion gap determination 6.0-15.0 [facility] Sodium [Moles/volume] in Ser um or PlasmaOrdered By: Carol Vidal on 02-01-2025 Sodium [Moles/Vol] Sodium [Moles/volume ] in Serum or Plasma 136-145 [facility] Specific gravity Test strip (U) [Rel density]Ordered By: Carol Vidal on 02-01-2025 Specific gravity (U) [Rel density] Specific gravity of Urine by Test strip 1.001-1.03 0 [facility] Thyroid Peroxidase Antibodie son 02-01-2025 Thyroid Peroxidase Antibodies 13 [IU]/mL Normal 0-34 [facility] Comment on above: Result Comment: Perf ormed at: - [facility] [address] [id number] Welfare Officer: Bowen Mcleod PhD, Phone: [phone] Performed By: #### T PO, C3, CHROMATIN, C4, THYGLOB AB, CH50, ROSS #### [facility] , Thyroid Stimulating Hormoneo n 02-01-2025 TSH Qn 2.21 m[IU]/L Normal 0.45-5.33 [facility] Comment on above: Result Comment: PERF ORMED BY: [facility] [address] [place] [id number] PATHOLOGIST EMERGENCY MEDICINE PHYSICIAN ASSISTANT NADYA FREDERICK M.D. Performed By: #### T PO, C3, CHROMATIN, C4, THYGLOB AB, CH50, ROSS #### [facility] , Thyrotropin [Units/volume] i n Serum or PlasmaOrdered By: Carol Vidal on 02-01-2025 TSH Qn Thyrotropin [Units/v olume] in Serum or Plasma 0.45-5.33 [facility] Thyroxine (T4) free [Mass/vo lume] in Serum or PlasmaOrdered By: Carol Vidal on 02-01-2025 Free T4 [Mass/Vol] Thyroxine (T4) free [Mass/volume] in Serum or Plasma 0.61-1.12 [facility] Urea nitrogen [Mass/volume] in Serum or PlasmaOrdered By: Carol Vidal on 02-01-2025 Urea nitrogen [Mass/Vol] Urea nitrogen [Mass/volume] in Serum or Plasma 7-25 [facility] Urobilinogen Test strip (U) [Mass/Vol]Ordered By: Carol Vidal on 02-01-2025 Urobilinogen (U) [Mass/Vol] Urobilinogen [Mass/volume] in Urine by Test strip Normal [facility] WBC Auto (Bld) [#/Vol]Ordere d By: Carol Vidal on 02-01-2025 WBC (Bld) [#/Vol] Leukocytes [#/volume ] in Blood by Automated count 3.8-11.6 [facility] aPTT in Platelet poor plasma by Coagulation assayOrdered By: Carol Vidal on 02-01-2025 aPTT Coag (PPP) [Time] Activated partial thromboplastin time (aPTT) in platelet poor plasma by coagulation a 25.1-36.5 [facility] Comment on above: A hematocrit value g reater than 55% may lead to inaccurate results in coagulation testing. Patients having hematocrit values >55% require a special collection tube for coagulation studies. Please contact the laboratory at [phone] for redraw instructions. pH Test strip (U)Ordered By: Carol Vidal on 02-01-2025 pH (U) pH of Urine by Test strip 5.0-9.0 [facility] IGP,APTIMA HPV,AGE GDLNon AGE GDLN ACOG TESTING Note . [facility] Comment on above: TESTS RESULT FLAG UN ITS REF RANGE LAB Clinician Provided Cytology Information Source.............Vagina No. of containers..01 ThinPrep Vial Age Algo ACOG Mya... FLAG LEGEND: L-Low Normal,H-High Normal,LL-Alert Low,HH-Alert High <-Panic Low,>-Panic High,A-Abnormal,AA-Critical Abnormal Performed at: 01 =[address] [place] [address] Britta Wang MD, HPV APTIMA Negative Negative [facility] Comment on above: This nucleic acid am plification test detects fourteen high- risk HPV types (16,18,31,33,35,39,45,51,52,56,58,59,66,68) without differentiation. Performed at: =[facility], [place] [id number] Welfare Officer: Britta Wang MD, Phone: [phone] Performed at: [facility] [address] [place], [place] [id number] Welfare Officer: Kristian Waterman MD, Phone: [phone] IGP, APTIMA HPV, RFX 16/18,45 Note . [facility] Comment on above: TESTS RESULT FLAG UN ITS REF RANGE LAB DIAGNOSIS: 02 NEGATIVE FOR INTRAEPITHELIAL LESION OR MALIGNANCY. FUNGAL ORGANISMS MORPHOLOGICALLY CONSISTENT WITH VIVIANE SPECIES ARE PRESENT. Specimen adequacy: 02 Satisfactory for evaluation. Endocervical and/or squamous metaplastic cells (endocervical component) are present. Performed by: 02 Steve Saenz Slasher Tender ([facility]) . 02 Note: Note 03 [...] High,A-Abnormal,AA-Critical Abnormal Performed at: 02 [facility] [address] [place] [address] Kristian Waterman MD, 03 WB [facility] [address] [address] Britta Wang MD, [facility]Clin ic Noteon 11-01-2024 Gastroenterology Office/Clinic Note Gastroenterology Office/Clinic Note [facility] Staff Patient is a 49 year old female who was referred by Dr Mccarty for elevated LFTs. LFTs did improve after being repeated a week later. previous EGD/ Colonoscopy - Friday, done at [place] with Dr. Li blood thinners- 325 daily [...] wisdom to (more content not included)... Normal [facility] Comment on above: Result Comment: Elec tronically Signed By: Delaney BURK, Vinayak Jimenez\.br\Date and Time Signed: 11/01/24 14:36 EST H PYLORI SCREENon 10-27-2024 H. pylori Org specific cx Ql (Sara fld) Negative Normal NEG [facility] Comment on above: Performed By: #### 4 4015-6 #### [facility] ([id number]) [address] [place] [address], [address] [place] [address] Surgical Pathologyon 024 Surgical Pathology Normal [facility] Comment on above: Result Comment: [facility] [address] [place] [address] Surgical Pathology Consultation ADDENDUM VT Patient Name:HORACIO KEATING:1975 (Age: 49)Gender:FTaken:10/27/2024eported:11/05/2024hysician(s):Willa Li MD ([phone])Copy To: Rec. #:[id number]: #[id number] Final Pathologic Diagnosis 1. Antrum biopsy: Mild [...] Electronically Signed Out waeric/11/05/2024Smith Clark MD Addendum ([facility]) Date Reported: 11/09/2024 In specimen part 1, immunohistochemistry (with appropriate controls) for Helicobacter pylori organisms is NEGATIVE. Electronically Signed Out Smith Clark MD Interpretation performed [place] [address], License number: [id number]. Clinical History Positive fecal occult blood Gross Description 1. Received in formalin labeled KEATING, antrum are two pink-julian soft tissue bits, 0.1 and 0.3 cm in greatest dimension. The specimens are filtered and submitted entirely in a single cassette. (1, ns, [id number], m8) YEISON 2. Received in formalin labeled KEATING, appendiceal are three pink-julian soft tissue bits and strips, 0.3, 0.3, and 0.6 cm in greatest dimension. The specimens are filtered and submitted entirely in a single cassette. (1, ns, [id number], m8) YEISON vaz/10/29/2024GR Specimen(s) Received 1: Antrum biopsy 2: Appendiceal orifice Fee Codes(s): 1; 47833, 74243 2; 17403 Basic Metabolic Panelon 08-03 GFR/1.73 sq M.predicted MDRD (S/P/Bld) [Vol rate/Area] mL/min/{1.73_m2} Normal [facility] Comment on above: Performed By: #### B MP, LIPID #### [facility] [address] [id number] [place] Calcium [Mass/volume] in Ser um or PlasmaOrdered By: Dedrick Fuller on 08-30-2024 Calcium [Mass/Vol] 9.9 mg/dL Normal 8.6-10.3 [facility] Comment on above: Performed By: #### B MP, LIPID #### [facility] [address] [place] [address] [facility] Carbon dioxide, total [Moles /volume] in Serum or PlasmaOrdered By: Dedrick Fuller on 08-30-2024 CO2 [Moles/Vol] 26.6 mmol/L Normal 21.0-31.0 [facility] Comment on above: Performed By: #### B MP, LIPID #### [facility] [address] [place] [address] [place] Chloride [Moles/volume] in S altagracia or PlasmaOrdered By: Dedrick Fuller on 08-30-2024 Chloride [Moles/Vol] 104 mmol/L Normal 98-107 [facility] Comment on above: Performed By: #### B MP, LIPID #### [facility] [address] [place] [address] [place] Cholesterol [Mass/volume] in Serum or PlasmaOrdered By: Dedrick Fuller on 08-30-2024 Cholesterol [Mass/Vol] 218 mg/dL High 140-200 [facility] Comment on above: Chol less than 200 m g/dl low riskChol 201-239 mg/dl borderline riskChol 240 mg/dl and greater high risk Result Comment: Chol less than 200 mg/dl low risk Chol 201-239 mg/dl borderline risk Chol 240 mg/dl and greater high risk Performed By: #### B MP, LIPID #### [facility] [address] [place] [address] [place] Cholesterol in LDL Calc [Mas s/Vol]Ordered By: Dedrick Fuller on 08-30-2024 Cholesterol in LDL [Mass/Vol] 134 mg/dL High 0-100 [facility] Comment on above: LDL ATP III CLASSIFI CATIONLDL less than 100 mg/dL OptimalLDL 100-129 mg/dL Near or above optimalLDL 130-159 mg/dL Borderline highLDL 160-189 mg/dL HighLDL greater than 189 mg/dL Very high Cholesterol in VLDL Calc [Ma ss/Vol]Ordered By: Dedrick Fuller on 08-30-2024 Cholesterol in VLDL [Mass/Vol] 46 mg/dL [facility] Creatinine [Mass/volume] in Serum or PlasmaOrdered By: Dedrick Fuller on 08-30-2024 Creatinine [Mass/Vol] 0.75 mg/dL Normal 0.60-1.20 [facility] Comment on above: Performed By: #### B MP, LIPID #### [facility] [address] [id number] [place] Glucose [Mass/volume] in Ser um or PlasmaOrdered By: Dedrick Fuller on 08-30-2024 Glucose [Mass/Vol] 95 mg/dL Normal 70-100 [facility] Comment on above: ADA recommended refe rence rangeRandom Glucose Reference Range is dependent on time and content of last meal. Glucose of more than 200 mg/dL in a nonstressed, ambulatory subject supports the diagnosis of Diabetes Mellitus. Result Comment: Wyatt om Glucose Reference Range is dependent on time and content of last meal. Glucose of more than 200 mg/dL in a nonstressed, ambulatory subject supports the diagnosis of Diabetes Mellitus. ADA recommended reference range Performed By: #### B MP, LIPID #### [facility] [address] Lipid Panelon 08-30-2024 LDL Cholesterol,Calculated 134 mg/dL High 0-100 [facility] Comment on above: Result Comment: LDL ATP III CLASSIFICATION LDL less than 100 mg/dL Optimal LDL 100-129 mg/dL Near or above optimal LDL 130-159 mg/dL Borderline high LDL 160-189 mg/dL High LDL greater than 189 mg/dL Very high Performed By: #### B MP, LIPID #### [facility] [address] Triglyceride w/Reflex 231 mg/dL High 0-149 [facility] Comment on above: Result Comment: TRIG ATP III CLASSIFICATION TRIG less than 150 mg/dL Normal TRIG 150-199 mg/dL Borderline high TRIG 200-500 mg/dL High TRIG greater than 500 mg/dL Very high Standard traceable to the Center for Disease Conrtrol and Prevention (CDC) test method. Performed By: #### B MP, LIPID #### [facility] [address] VLDL CHOLESTEROL 46 mg/dL Normal [facility] Comment on above: Performed By: #### B MP, LIPID #### [facility] [address] No Panel InformationOrdered By: Dedrick Fuller on 08-30-2024 Estimated GFR (CKD-EPI) > 60.0 mL/Min [facility] Creatinine Clearance (Chem N/A [facility] Potassium [Moles/volume] in Serum or PlasmaOrdered By: Dedrick Fuller on 08-30-2024 Potassium [Moles/Vol] 4.1 mmol/L Normal 3.5-5.1 [facility] Comment on above: Performed By: #### B MP, LIPID #### [facility] [address] Serum or plasma anion gap de terminationOrdered By: Dedrick Fuller on 08-30-2024 Anion gap [Moles/Vol] 13.5 mmol/L Normal 6.0-15.0 [facility] Comment on above: Performed By: #### B MP, LIPID #### [facility] [address] Serum or plasma high density lipoprotein (HDL) cholesterol measurementOrdered By: Dedrick Fuller on 08-30-2024 Cholesterol in HDL [Mass/Vol] 38 mg/dL Normal 23-92 [facility] Comment on above: HDL CHOL ATP-III CLA SSIFICATION Cardiovascular RiskHDL > or equal to 60 mg/dL LOWHDL < 40 mg/dL HIGH Result Comment: HDL CHOL ATP-III CLASSIFICATION Cardiovascular Risk HDL > or equal to 60 mg/dL LOW HDL < 40 mg/dL HIGH Performed By: #### B MP, LIPID #### [facility] [address] [place] [address] Serum or plasma total choles terol/high density lipoprotein (HDL) cholesterol mass ratOrdered By: Dedrick Fuller on 08-30-2024 Cholesterol.total/Chol esterol in HDL [Mass ratio] 5.7 {ratio} Normal <5.0 [facility] Comment on above: Result Comment: PERF ORMED BY: [place] [id number] PATHOLOGIST EMERGENCY MEDICINE PHYSICIAN ASSISTANT IRMA MARCELO M.D. Performed By: #### B MP, LIPID #### [address] Sodium [Moles/volume] in Ser um or PlasmaOrdered By: Dedrick Fuller on 08-30-2024 Sodium [Moles/Vol] 140 mmol/L Normal 136-145 [facility] Comment on above: Performed By: #### B MP, LIPID #### [facility] [address] [id number] [facility] Triglyceride [Mass/volume] i n Serum or PlasmaOrdered By: Dedrick Fuller on 08-30-2024 Triglyceride [Mass/Vol] 231 mg/dL High 0-149 [facility] Comment on above: TRIG ATP III CLASSIF ICATIONTRIG less than 150 mg/dL NormalTRIG 150-199 mg/dL Borderline highTRIG 200-500 mg/dL High TRIG greater than 500 mg/dL Very highStandard traceable to the Center for Disease Conrtrol and Prevention (CDC) test method. Urea nitrogen [Mass/volume] in Serum or PlasmaOrdered By: Dedrick Fuller on 08-30-2024 Urea nitrogen [Mass/Vol] 18 mg/dL Normal 7-25 [facility] Comment on above: Performed By: #### B MP, LIPID #### [facility] [address] [id number] [facility] Coding Summaryon 03-19-2024 Coding Summary HTMLBase 64 WkrmiskkYOl1rKv+PGhlYWQ+PE 5SNCHaX37zyUImxB1rZ0ZPBMsM FaxdREBDAMlNEoVslnFrCT2dlN NjZXJu IC8+KM2cKJIuBjkjcPNsw2A7dK L5M23wom3dUQbahGG8RZXmEtQk bdiyt8lnvUw3SCgvYpowFeBm EFGdaZ10CPT5aY08Ds20eVBrpY Nge7vomTo3LeEaBLOeSZD9fSum JKfmn4IsIJNeN50nxPKnh7N4 NDJpoZiwpJHsRpGglMD3eL8jZY awslmbh8cslcpfVeh9en32aURq c5U5hSL5A0SlyuY1HGPmdTZh YziuqHZVfJ2xiqini7tboxjzTq NsNXZtWDg3SFp3GHVkiXceOhDy WN61NVH0DPAmllQyY2QrEWJv lJvvTyX9k6F5Gq1VV7KAIhhtI7 VNTUFSWTwvdGQ+GR08wu30O2Yk UsroRrm2ZMCzJLM6xII4rL3g VHVqWOxqw7I2bJJ1B0NoqmXhkc 2ld5rkCJOyWLzfZ97snELti2Y9 BJGgoRP2SVWzuFtsPaCsvM23 Oyc+XLMlnAvvd5PxQndbh2tdf8 grnNw0ZlbvFCAgssKvpDuoSSS1 u1PhCg2tJHFabOE9rHC8xI4e BdHdLaG0VEsuN089UbPysMTxTh rhA24nR9NqsUK+USQxWvi8XJRt eVmxFE2vM3WsZLMyplhozPZn zYdeTK2aHNOxnszzPFLgkN0dQO CtY3t6CwZyKsZ6RJsuE3ByBFMu saabKu14pW9aZgFzLdP1XYcy U8ZkwaM5KXQskRFfUYwnNUD3Q3 2rp4J0NPLxJEPgCTP9pUR5vP9t bGlnbjogbGVmdDsgdmVydGlj XOajECsuM185YGXywXdxIdDtOF luZyBEYXRlOiAgMDQvMTkvMjAy NDwvdGQ+DNWbQQT7jZoeTRUx iIUjFRplKy6pvAuhiGrzEK0jDI BcmrklUVEtjG7jABXtsKHaqWlf AY0bEDVblntdw447SnJhCPX1 JGQyaHYeX5AshX4aZeJuVLPhOK NqQ4XccKGrWGlxE362BZcgWfC8 TXMbuaFoG9NjOGPmfHhnGlQ7 p3T2An7Gl1JmnhfeT6WifVBoHv FuEejbWFj7S1NpJzjdiLY+PC90 JQIqJV87EEv8OZQ0gFqmTDih UMMmT0KvvH7hVaKoCXMsMMSpIl c+PHRhYmxlIHdpZHRoPScxMDAl BgNfxOblCH2mMf3dMAMmIDAl nVdkjRDzPeUmn7qqUKPwBFqgXO 4xjHemG6QylHR5XKHia8c4Cm60 I27rS3VdhLR+AJDqdAQ0vAP2 fE0wFiCjEeD9VMpkD564LkLedZ AhJtujy1rcw5qkrKj0MiO2TNMw tmSbtKjfZBY2t4XrMl10E44h IHdpZHRoPSIxNSUiIHZhbGlnbj 5vgS5hNy4+OFSnqDM9kEN8kN6x IhWxArZ1QCmaV842HxEwcCAi Ffykl6dyq2uclAs9TfYgENKhrz IzaUvmYQP2w2BdRz94D3OsxUjo g5IjQsf3gm22bINdy0O8nCA1 Y9RsDSJhwzyzzEIxzAlaOZ1jJE HxzcgiDUUoyZ8nQRVcY0x7AsFc BrU0KJtzJ0YcitY7RHDynZVr KQWndJBXkC2jdykct7immndgRf PiGPDpUPu4OLt1PMGjeHujUtQl PVD7HiY8VAY6fGSvbS0dhMmt mkoetV5dEqw+JVE6fWAkcQBVZX 1lOjwvdGQ+YBEwFNF0cTmzHEja HBVuoI3kZFRyC4m2XqYrDwE2 FJgdN7PstdR1EHUclEQlRVAzgG SVnV3kawvmx5irohhhVnOjSTJp QVj6KMj2AUIvcBkiMhRcSMB1 GdM4UPG2cXOuqV3ihKnrsnxueV 9wOyc+VogwxOhcRTB9HIo3O9Ls Ksb4GSDfwSxaWJ6vgJHeWJxq Ck5hrTcjmZdcSI3fYBAnpbiky4 16GsQnj5hkEGFnpWVwFCqqFCL8 L72xf1A0VGNqFWPsIWV6sFJ3 gO1xdRmxaraqiRDoyDzvrcXctH ihJWmpRMilD863YZMhkFsrRpKc AYe0V8IcPvt1MZImhMsvKZ5o fMJnHQteRh4gzCpbbJdxIA8qJB Lavontz542DxXnj2suTQQxjTGp EJhdTXZ4K60nf6K2DJLbTLEt BRT1qXP8cM0ooUrxhylcaEFsmS mlxfMdtGjhHGqiNEtwF699VRSz xPaaRpTpmQe6V6SeRlw8KMQu iEggJI5pjSJuDDvsWd2abSevvO fsQM8uMRKvjcggg132VyVej1eu NIZqmFCrKChrBHA1B77ot6Y2 LLUyBIZhZUI9lVY2dV6zoJymqr ogbGVmdDsgdmVydGljYWwtYWxp T018GBJxeVlvYaBcnMrgixPx SXbkHMr5S3XqTxnxqZV+PC90YW UvDZ55hUQgnVDgq9ebpBk2UdAl OYRtWJM1eLjgFUqzj5FnAHMy U59wjHFxl1Y7XIImzVeslNXhJt XsbRA1sQ6eTAhyqrtmy6jchaei Rgpnl3femw03oO03B84gHFgk QLNiLHSuRDOuJAXuhCktme1dqW 9wIi8+NWQimON7uXS6hG4aKPXl YxQ9QDfbM429CuMheSZaBpfw k6fau0ratJs6IhI2CVZpkmGouE pdRRQ4q5FeDl27S14kQFeuLGVf ODTbEPNjVBOeqFifcd9rnC3c Ii8+PLAiiXT9pSI4qT9yMePwYc R5ABgcZ685DgMesRRsCgjbN20c A0YfdXH+LBCdVnc9EZAvbQbf JC1dgIXbJMslRh6sZSP4RhOoXn XsMDwtA9DhDDXtmttblbkqvSO9 GBTnOJPvjE57Gg5ocCzbOFPv xKBCqE2twpfoj0yixvhgNiYrUT SrRXx3SLl6DPJszNsqMgNrXHW2 WtI1OWB7oKMawX3ejRjsgmzm oN1wL7IuSFYdhwztId20uR4cJq InKeF9PQqnVai+C05WZSTABYOQ ADRUVJ5HFY7KP35RWRuxiNQ+ EMQjFQQ8uTbcQVghYKTcpY2eMV DtE9x5HsAaXkL8EQfyY5OtJZEv ympqRx68iF7jFiOjWxP5XVhr F2BvzlX4QFVnmZTsHNngHKF0G1 8dk9R5FUIwVMPqBNJ0gZP5qN1s bGlnbjogbGVmdDsgdmVydGlj LKdpLZxjW727GRRydKyhQyF9Us H8MbO6PrB6K6MkKxl3AMWzaWyt QX5gvTYkFTxjJr8lrNfkgCmb VL0lZLDvqxrcDXKyyW9dMMNtlT FwcUloRW9vHAIgdmorm267KcKj EFB6MQUbqXMjQ3GgnU9lTbBt FNIbXAPvL1LloLUjJOlmU153YB noZjX7UYPetpUjS5OfRNBphWxm TcJ8l8D7Ex41FwFTTWAbphqn dGQ+GHOaDCF4uPxbFOpgQXEisS 7sWNOhX0x8GpDrGfT9CUciP7Ct QJXrjxwaQn44nQ7gMzIwVpL4 XXylK5NkwdI7NYKewIQaAZysVX V4R02vh5N4LJHeKNKjKKU6tIO1 dR4ieSarzfdxqPJvdXcywlCb bBwsPWqpRRugF510XHDvuMymEh ZFTUFMRTwvdGQ+BECiDDK9eRks LZpgEEEtcD5hBFGlQ7w2NsCm XqK1GVwfL5ZdFKGxtzalIe16zS 4xXtMwOzM4XDacJ4MgdlB4PUUt mDInAHepVWU5P39vl4G3LRVk HLHmYOX0oDO0cQ5mfIoljoxgfI QsiTqawfAeyJenXFexCHogQ161 MUHkzEqiSxZkYJCiEY7qtEsr dGQ+IV51ne35K7TgCikoAko8CJ QaMRN2yUG6lB9hFUTcKIohq0C1 sAE9Z9WvsaSwij5rq5ooEPNt TPniW74nzSMqw6T1IQFpjMT7QF HwfAzuRaBhsG01Lpz+PGNvbGdy b9HeBawnz1rac9mwiEd0PbBh MYYxvmFacXlqNLK8z9RbBz28Y8 9sIHdpZHRoPSIzMCUiIHZhbGln aq6hxW4xAf0+XXUxoFE4tBY5 mR0pQaMzNnP3UYqrF035KuVmlJ SdSgkoi1kjz4ctfFg5MfIfXACm uySxzRieCBE5a8MtAu74G3Jm kClxu2FkLpo6sx27oIMwo1Q8cR I0M3AbPNHwzilaoCVrrHofJO3z QIRqfbqzQXMlwF5oQMPhD4y3 AaSrPxZ0XZrkB2IgcfG2PCNioT GdONKwrTZAgY7rzaxjn1qpamad AeKrJRDcKOg0LUj8CLXaoUot BnPeDNN4LsH6PKU8nEWqcO4gyE mwgibmnC7fWxh+UOe4l0wojNHl FV1ryPN4ED16RD54tODkh1Z1 kWL8J6FnCOAbuaqiblxqwHE0NK RhNBMtiH51Wz7pkXhzNk8sKPCb UPI0MGXwjVPvH3XvjJ1nRhPh CVTpSGZyG6YnsKBeLKxpS466YO kqSkH4MMIhptOmG9MuERTxpEpk UrK5t2A7Da5KWU01SS77OY79 qYOfp8D2rRV0S8MmYMRnyszlgi nuwJS9INKvWYVbaV61Qo1atDoc Qx8yKZWbJAC0UKYfuBAzZ1Zt fN4qXxHzFNKwIGOvK4ZlhADwWQ vwZ804SDseHuL9TVIqlzOmG9Dx DZTnsHakBtM5k3S9Fm9IKo99 MF11AH76sCJec7X1dSX4W4JsTR EatvemuckohAV6DKFwNXQlhK90 Tf2nzHbfLz0oJRRhTWU6FHFv yQTgE8LllJ7pVtHwINWzDQWtV0 VrsTMiCExjW021PFoxCmM1NXHg ghJvR0RmOUGtuXmwIvB1v1F4 Rx7EFHjefmi9P6MzZuctgJB+PC 39KTKqQF45aRBxbJPzo0hgzGr8 LwMhXUKbPFI1fIxcDSspr9Uz ZXI (more content not included)... [facility] Noteon 03-17-2024 Ambulance Note [id number] [facility] C Urineon 03-17-2024 C Urine Urine Culture ordere d as a result of parameters set on specific urine dip and urine microsopic results. >100,000 cfu/ml Lactobacillus species Normal vaginal oleg isolated 10,000 cfu/ml Corynebacterium species (DIPTHEROID) No YOLANDE performed on this organism No pathogens isolated [facility] Comment on above: Performed By: #### 5 [id number], [id number], [id number] ####[facility] [place] [facility] (DEFAULT)[address] [place] [address] .Auto Diff 1on 03-15-2024 Auto Noble % 3 % Normal -12 [facility] Comment on above: Performed By: #### 5 [id number], [id number], [id number], [id number], [id number], 7826304, [id number] #### [facility] (DEFAULT) [address] [place] [address] Baso Abs# 0.1 x10 Normal 0.0-0.2 [facility] Comment on above: Performed By: #### 5 [id number], [id number], [id number], [id number], [id number], 7862709, 3320488 #### [facility] (DEFAULT) [address] [place] [address] Basophils/100 WBC (Bld) 0.7 % Normal 0.2-2.0 [facility] Comment on above: Performed By: #### 5 [id number], [id number], [id number], 89671457, [id number], 2392445, 6719051 #### [facility] (DEFAULT) [address] [place] [address] Eos Abs# 0.1 x10 Normal 0.0-0.4 [facility] Comment on above: Performed By: #### 5 [id number], [id number], [id number], 86172755, 8695092468, 0841137, 5614840 #### [facility] (DEFAULT) [address] [place] [address]121 Eosinophils/100 WBC (Bld) 0.7 % Low 0.9-4.0 [facility] Comment on above: Performed By: #### 5 [id number], [id number], [id number], 09617906, 4839523302, 4831815, 9048365 #### [facility] (DEFAULT) [address] [place] [address] 16151 Lymph Abs# 2.2 x10 Normal 1.3-2.9 [facility] Comment on above: Performed By: #### 5 [id number], [id number], [id number], [id number], 5060368762, 0628067, 7337156 #### [facility] (DEFAULT) [address] [place] [address] Lymphocytes/100 WBC (Bld) 14 % Normal 14-48 [facility] Comment on above: Performed By: #### 5 [id number], [id number], [id number], [id number], 3885153102, 5094027, 9349937 #### [facility] (DEFAULT) [address] [place] [address] Noble Abs# 0.5 x10 Normal 0.0-0.8 [facility] Comment on above: Performed By: #### 5 [id number], [id number], [id number], 25571657, [id number], 0183670, 9654053 #### [facility] (DEFAULT) [address] [place] [address] Neut Abs# 13.5 x10 High 1.5-9.2 [facility] Comment on above: Result Comment: Slid e Reviewed Performed By: #### 5 [id number], [id number], [id number], 10491130, [id number], 3941906, 3147909 #### [facility] (DEFAULT) [address] [place] [address] Neutrophils/100 WBC (Bld) 82 % Normal 44-88 [facility] Comment on above: Performed By: #### 5 [id number], [id number], [id number], [id number], 8573403670, 5442957, 9826489 #### [facility] (DEFAULT) [address] [place] [address] CBC w/ Auto Diffon 4 Erythrocyte distribution width (RBC) [Ratio] 13.3 % Normal 11.5-15.0 [facility] Comment on above: Performed By: #### 5 [id number], [id number], [id number], 75068406, 1548120922, 8933864, 2400792 #### [facility] (DEFAULT) [address] [place] [address] Hematocrit (Bld) [Volume fraction] 45.0 % High 33.7-40.4 [facility] Comment on above: Performed By: #### 5 [id number], [id number], [id number], 11581579, 5341422541, 1748633, 1957451 #### [facility] (DEFAULT) [address] [place] [address] 56894 Hemoglobin (Bld) [Mass/Vol] 15.0 g/dL Normal 11.3-15.9 [facility] Comment on above: Performed By: #### 5 [id number], [id number], 8994456601, 44003290, 5908074897, 4039072, 3599224 #### [facility] (DEFAULT) [address] [place] [address] Man Diff? Auto Invalid Interpretation Code [facility] Comment on above: Performed By: #### 5 [id number], [id number], [id number], 62051873, 3665505735, 8898563, 4461560 #### [facility] (DEFAULT) [address] [place] [address] 44688 MCH (RBC) [Entitic mass] 32 pg Normal 24-34 [facility] Comment on above: Performed By: #### 5 [id number], [id number], [id number], 89586618, 9984488366, 4151655, 7268470 #### [facility] (DEFAULT) [address] [place] [address] 10987 MCHC (RBC) [Mass/Vol] 33 g/dL Normal 26-37 [facility] Comment on above: Performed By: #### 5 [id number], [id number], [id number], 01607180, 9520460651, 2248355, 5600896 #### [facility] (DEFAULT) [address] [place] [address] 42677 MCV (RBC) [Entitic vol] 95 fL Normal 81-100 [facility] Comment on above: Performed By: #### 5 [id number], [id number], 9693612125, 03733847, 1704334785, 0531330, 4813059 #### [facility] (DEFAULT) [address] [place] [address] 01261 Platelet 292 x10 Normal 138-427 [facility] Comment on above: Performed By: #### 5 [id number], [id number], [id number], 46305543, 1866408068, 8062904, 0688131 #### [facility] (DEFAULT) [address] [place] [address] 02939 Platelet mean volume (Bld) [Entitic vol] 8.7 fL Normal 6.3-10.2 [facility] Comment on above: Performed By: #### 5 [id number], [id number], 0008091359, 25817610, 7751334984, 8472366, 6667783 #### [facility] (DEFAULT) [address] [place] [address] RBC 4.74 x10 Normal 3.70-5.30 [facility] Comment on above: Performed By: #### 5 [id number], [id number], [id number], [id number], [id number], 7359340, [id number] #### [facility] (DEFAULT) [address] [place] [address] 71325 WBC 16.4 x10 High 3.5-10.5 [facility] Comment on above: Performed By: #### 5 [id number], [id number], [id number], 80230063, [id number], 5860663, 9328144 #### [facility] (DEFAULT) [address] [place] [address] 36826 CMP Standardon 03-15-2024 eGFR Non AA >60 Invalid Interpretation Code [facility] Comment on above: Performed By: #### 5 [id number], [id number], [id number], 50876779, [id number], 3695574, 5340435 #### [facility] (DEFAULT) [address] [place] [address] 91254 eGFR AA >60 Invalid Interpretation Code [facility] Comment on above: Performed By: #### 5 [id number], [id number], [id number], 73763650, 1209588327, 6028373, 3808406 #### [facility] (DEFAULT) [address] [place] [address] 73874 Albumin [Mass/Vol] 4.1 g/dL Normal 3.5-5.0 [facility] Comment on above: Performed By: #### 5 [id number], [id number], [id number], 63457269, 8403791218, 2247270, 6245411 #### [facility] (DEFAULT) [address] [place] [address] 67982 Albumin/Globulin [Mass ratio] 1.3 {ratio} Low 1.4-2.6 [facility] Comment on above: Performed By: #### 5 [id number], [id number], 6880784269, 77883805, 4669608643, 4442012, 8336194 #### [facility] (DEFAULT) [address] [place] [address] 28571 Alk Phos 39 IU/L Normal 32-91 [facility] Comment on above: Performed By: #### 5 [id number], [id number], 5817292550, 53859928, 4399553319, 3725216, 4979558 #### [facility] (DEFAULT) [address] [place] [address] 26601 ALT [Catalytic activity/Vol] 32.0 U/L Normal 14.0-54.0 [facility] Comment on above: Performed By: #### 5 [id number], [id number], [id number], 94856348, 3636875093, 8848038, 7008451 #### [facility] (DEFAULT) [address] [place] [address] 50628 Anion gap [Moles/Vol] 13.0 mmol/L Normal 5.0-19.0 [facility] Comment on above: Performed By: #### 5 [id number], [id number], 3962599467, 13967919, 4725674669, 8331898, 9130764 #### [facility] (DEFAULT) [address] [place] [address] 13762 AST [Catalytic activity/Vol] 25 U/L Normal 15-41 [facility] Comment on above: Performed By: #### 5 [id number], [id number], [id number], 25687430, 2961668152, 8973846, 3536820 #### [facility] (DEFAULT) [address] [place] [address] 77851 Bili Total 1.4 mg/dL High 0.3-1.2 [facility] Comment on above: Performed By: #### 5 [id number], [id number], 6300784414, 14810837, 9622061980, 1946461, 3164688 #### [facility] (DEFAULT) [address] [place] [address] 02341 Calcium [Mass/Vol] 8.8 mg/dL Low 8.9-10.3 [facility] Comment on above: Performed By: #### 5 [id number], [id number], [id number], 10596410, 3375587232, 1179860, 5293479 #### [facility] (DEFAULT) [address] [place] [address] 05359 Chloride [Moles/Vol] 105 mmol/L Normal 101-111 [facility] Comment on above: Performed By: #### 5 [id number], [id number], 4094378757, 09476824, 8813304449, 5929364, 0440783 #### [facility] (DEFAULT) [address] [place] [address] 51897 CO2 [Moles/Vol] 24 mmol/L Normal 21-32 [facility] Comment on above: Performed By: #### 5 [id number], [id number], 4963760731, 57624114, 7570333506, 2192430, 1976181 #### [facility] (DEFAULT) [address] [place] [address] 16056 Creatinine [Mass/Vol] 0.72 mg/dL Normal 0.60-1.30 [facility] Comment on above: Performed By: #### 5 [id number], [id number], 0544600693, 50897378, 0450537364, 9288217, 9044972 #### [facility] (DEFAULT) [address] [place] [address] 91755 Globulin (S) [Mass/Vol] 3.0 g/dL Normal 1.5-4.3 [facility] Comment on above: Performed By: #### 5 [id number], [id number], 0529475678, 28489960, 7490555099, 5495221, 2619248 #### [facility] (DEFAULT) [address] [place] [address] 77222 Glucose [Mass/Vol] 124.0 mg/dL High 74.0-118.0 [facility] Comment on above: Performed By: #### 5 [id number], [id number], 9349253546, 05513363, 3936183737, 9652968, 7896348 #### [facility] (DEFAULT) [address] [place] [address] 21533 Osmolality 278 mOsm/L Invalid Interpretation Code [facility] Comment on above: Performed By: #### 5 [id number], [id number], [id number], [id number], [id number], [id number], [id number] #### [facility] (DEFAULT) [address] [place] [address] 78306 Potassium [Moles/Vol] 4.0 mmol/L Normal 3.6-5.1 [facility] Comment on above: Performed By: #### 5 [id number], [id number], [id number], [id number], [id number], [id number], [id number] #### [facility] (DEFAULT) [address] [place] [address] 27526 Protein [Mass/Vol] 7.1 g/dL Normal 6.5-8.1 [facility] Comment on above: Performed By: #### 5 [id number], [id number], [id number], [id number], [id number], [id number], [id number] #### [facility] (DEFAULT) [address] [place] [address] 50330 Sodium [Moles/Vol] 138.0 mmol/L Normal 136.0-144 . 0 [facility] Comment on above: Performed By: #### 5 [id number], [id number], [id number], [id number], [id number], [id number], 6773656 #### [facility] (DEFAULT) [address] [place] [address] 43058 Urea nitrogen [Mass/Vol] 15 mg/dL Normal 8-26 [facility] Comment on above: Performed By: #### 5 [id number], [id number], [id number], [id number], [id number], 7493281, [id number] #### [facility] (DEFAULT) [address] [place] [address] 12399 Urea nitrogen/Creatinine [Mass ratio] 20.8 mg/mg High 4.6-16.2 [facility] Comment on above: Performed By: #### 5 [id number], [id number], [id number], [id number], [id number], 6833249, [id number] #### [facility] (DEFAULT) [address] [place] [address] 27850 Breakpoint Chem Normal [facility] Comment on above: Performed By: #### 5 [id number], [id number], [id number], [id number], [id number], 8544203, 4367945 #### [facility] (DEFAULT) [address] [place] [address] 69737 ED Clinical Summaryon 2023 ED Clinical Summary [facility] - Emergency Department [address] [place] [address]15 ED Clinical Summary PERSON INFORMATION Name: HORACIO KEATING Age: 48 Years Sex: FEMALE : 1975 MRN: Acct#: Visit Reason: Shortness of breath; Anxiety; Blood pressure check; SOB Arrival: 03/15/2024 17:56:51 Discharge: 03/15/2024 20:31:00 LOS: 000 02:35 Check In: 03/15/2024 17:56:51 Checkout:03/15/2024 20:31:00 Address: [address] [place] [address] PCP: SAMI MCCARTY PROVIDER INFORMATION Provider Role Assigned Unassigned Nicola Neff DO ED Provider 03/15/2024 18:07:25 Shanika Narvaez RN ED Nurse 03/15/2024 18:08:57 Joanna Angeles PULLEY MAINTAINER Nurse 03/15/2024 19:24:01 VITALS INFORMATION Vital Sign [...] Physical Exa (more content not included)... Normal [facility] ED Note - Physicianon 2023 ED Note [...] lymphadenopathy. Psychiatric: (more content not included)... Normal [facility] ED Note-Nursingon 03-15-2024 ED Note-Nursing Patient presents to the ER via [facility] for shortness of breath, anxiety. Patient [...] cannula. 12 lead was regular in rate [facility] ED Patient Summaryon 024 ED Patient Summary [facility] - Emergency Department [address] [place], [place] [id number] PATIENT DISCHARGE INSTRUCTIONS Patient Information Name: HORACIO KEATING Age: 48 Years Date of : 1975 Reason For Visit: Shortness of breath; Anxiety; Blood pressure check; SOB Arrival Time: 03/15/2024 17:56:51 Primary Care Physician: SAMI MCCARTY Attending Physician: Nicola Neff DO Comment: Visit Diagnosis: Diagnoses This Visit Anxiety ([id number]) Blood pressure check ([id number]) Hypertension (I10) Panic attack (F41.0) Shortness of breath ([id number]) Urinary tract infection (N39.0) The Pharmacy at [facility] is open Friday through Friday from [...] alcohol and/or drug addiction problems; contact the [facility] 23/06 Crisis Hotline -text 4hope to [phone]. [...] legal documents With: Address: When: SAMI MCCARTY [address] [place] [address] [address] [place] [id number] Business (1) Within 3 to 5 days Comments: Call for follow up appointment Return if symptoms worsen Medication Information: The exam and treatment you received today in the [facility] Emergency Department were for an urgent problem and are not intended as complete care. It is important for you to follow up with a doctor, nurse practitioner, or physician?s benefits assistant for ongoing care. If your symptoms [...] medications post discharge. Please inform your primary class teacher/provider of your visit and for further instruction [...] Comment on above: Performed By: #### 5 [id number], [id number], [id number], [id number], [id number], [id number], [id number] #### [facility] (DEFAULT) [address] [place] [address] Extra Redon 03-15-2024 Tube Collected Yes Invalid Interpretation Code [facility] Comment on above: Performed By: #### 5 [id number], [id number], [id number], [id number], [id number], [id number], [id number] #### [facility] (DEFAULT) [address] [place] [address] 08676 PTon 03-15-2024 INR Coag (PPP) [Relative time] 0.94 {INR} Normal 0.91-1.11 [facility] Comment on above: Performed By: #### 5 [id number], [id number], [id number], [id number], [id number], [id number], 2530553 #### [facility] (DEFAULT) [address] [place] [address] 55989 PT 9.8 second(s) Normal 9.7-11.8 [facility] Comment on above: Performed By: #### 5 [id number], [id number], [id number], [id number], [id number], 5984558, 5435131 #### [facility] (DEFAULT) [address] [place] [address] 74527 TnI HSon 03-15-2024 Troponin I High Sensitivity 7.7 pg/mL Normal <=15.0 [facility] Comment on above: Performed By: #### 5 [id number], [id number], [id number], [id number], [id number], 2213166, 7388147 #### [facility] (DEFAULT) [address] [place] [address] UA Ywauf2wv 03-15-2024 UA Amorph. 1+ [facility] Comment on above: Order Comment: Urina lysis Microscopic order added on by Discern Expert Rules system. Performed By: #### 5 [id number], [id number], [id number] ####[facility] (DEFAULT)[address] [place] [address] UA Bacteria 3+ Normal [facility] Comment on above: Order Comment: Urina lysis Microscopic order added on by Discern Expert Rules system. Performed By: #### 5 [id number], [id number], [id number] ####[facility] (DEFAULT)[address] [place] [address] UA Mucous 1+ [facility] Comment on above: Order Comment: Urina lysis Microscopic order added on by Discern Expert Rules system. Performed By: #### 5 [id number], [id number], [id number] ####[facility] (DEFAULT)[address] [place] [address] UA RBC 3-5 [facility] Comment on above: Order Comment: Urina lysis Microscopic order added on by Discern Expert Rules system. Performed By: #### 5 [id number], [id number], [id number] ####[facility] (DEFAULT)[address] [place] [address] UA Renal Epi Rare [facility] Comment on above: Order Comment: Urina lysis Microscopic order added on by Discern Expert Rules system. Performed By: #### 5 [id number], [id number], [id number] ####[facility] (DEFAULT)[address] [place] [address] UA Squam Epi Many [facility] Comment on above: Order Comment: Urina lysis Microscopic order added on by Discern Expert Rules system. Performed By: #### 5 [id number], [id number], [id number] ####[facility] (DEFAULT)[address] [place] [address] 71649 UA WBC 3-5 [facility] Comment on above: Order Comment: Urina lysis Microscopic order added on by Discern Expert Rules system. Performed By: #### 5 [id number], [id number], [id number] ####[facility] (DEFAULT)[address] [place] [address] 44021 UA w Culture if Ind Standard on 03-15-2024 Breakpoint UA [facility] Comment on above: Performed By: #### 5 [id number], [id number], [id number] ####[facility] (DEFAULT)[address] [place] [address] Color (U) Yellow [facility] Comment on above: Performed By: #### 5 [id number], [id number], [id number] ####[facility] (DEFAULT)[address] [place] [address] Culture? Indicated Invalid Interpretation Code [facility] Comment on above: Result Comment: Resu lt created by rule GL_MAGR_ADD_UA_CULT Result created by rule GL_MAGR_ADD_UA_CULT Result created by rule GL_MAGR_ADD_UA_CULT1 Result created by rule GL_MAGR_ADD_UA_CULT Performed By: #### 5 [id number], [id number], [id number] ####[facility] (DEFAULT)[address] [place] [address] Glucose (U) [Mass/Vol] Negative [facility] Comment on above: Performed By: #### 5 [id number], [id number], [id number] ####[facility] (DEFAULT)[address] [place] [address] 59606 Ketones Ql (U) Negative [facility] Comment on above: Performed By: #### 5 [id number], [id number], [id number] ####[facility] (DEFAULT)[address] [place] [address] 40378 Micro? Indicated Invalid Interpretation Code [facility] Comment on above: Result Comment: Resu lt created by rule GL_MAGR_ADD_UA_MICRO Performed By: #### 5 [id number], [id number], [id number] ####[facility] (DEFAULT)[address] [place] [address] 85916 UA Bilirubin Negative Normal [facility] Comment on above: Performed By: #### 5 [id number], [id number], [id number] ####[facility] (DEFAULT)[address] [place] [address] 38187 UA Blood TRACE Abnormal NEGATIVE [facility] Comment on above: Performed By: #### 5 [id number], [id number], [id number] ####[facility] (DEFAULT)[address] [place] [address] 64740 UA Clarity SL CLOUDY Abnormal CLEAR [facility] Comment on above: Performed By: #### 5 [id number], [id number], 5702283 ####[facility] (DEFAULT)[address] [place] [address] 51987 UA Leuk Est LARGE Abnormal NEGATIVE [facility] Comment on above: Performed By: #### 5 [id number], [id number], [id number] ####[facility] (DEFAULT)[address] [place] [address] 28674 UA Nitrite Negative Normal [facility] Comment on above: Performed By: #### 5 [id number], [id number], 5474589 ####[facility] (DEFAULT)[address] [place] [address] 08513 UA pH 6.0 Normal 5-8 [facility] Comment on above: Performed By: #### 5 [id number], [id number], [id number] ####[facility] (DEFAULT)[address] [place] [address] 40129 UA Protein Negative Normal [facility] Comment on above: Performed By: #### 5 [id number], [id number], [id number] ####[facility] (DEFAULT)[address] [place] [address] 14135 UA Spec Grav 1.015 Normal 1.001-1.[address] [place] [address] Comment on above: Performed By: #### 5 [id number], [id number], [id number] ####[facility] (DEFAULT)[address] [place] [address] UA Urobilinogen 0.2 mg/dL Normal 0.2-1.0 [facility] Comment on above: Performed By: #### 5 [id number], [id number], [id number] ####[facility] (DEFAULT)[address] [place] [address] Urine Source Clean Catch Normal [facility] Comment on above: Performed By: #### 5 [id number], [id number], [id number] ####[facility] (DEFAULT)[address] [place] [address] XR Chest 1 View Frontalon XR Chest [...] MD 03/15/24 7:34 pm Technologist: Lizzy BRICEÑO [facility] Calcium [Mass/volume] in Ser um or PlasmaOrdered By: Dedrick Fuller on 08-15-2023 Calcium [Mass/Vol] 9.1 mg/dL 8.6-10.3 [facility] Carbon dioxide, total [Moles /volume] in Serum or PlasmaOrdered By: Dedrick Fuller on 08-15-2023 CO2 [Moles/Vol] 26.7 mmol/L 21.0-31.0 [facility] Chloride [Moles/volume] in S altagracia or PlasmaOrdered By: Dedrick Fuller on 08-15-2023 Chloride [Moles/Vol] 107 mmol/L 98-107 [facility] Cholesterol [Mass/volume] in Serum or PlasmaOrdered By: Dedrick Fuller on 08-15-2023 Cholesterol [Mass/Vol] 166 mg/dL 140-200 [facility] Comment on above: Chol less than 200 m g/dl low riskChol 201-239 mg/dl borderline riskChol 240 mg/dl and greater high risk Cholesterol in LDL Calc [Mas s/Vol]Ordered By: Dedrick Fuller on 08-15-2023 Cholesterol in LDL [Mass/Vol] 95 mg/dL 0-100 [facility] Comment on above: LDL ATP III CLASSIFI CATIONLDL less than 100 mg/dL OptimalLDL 100-129 mg/dL Near or above optimalLDL 130-159 mg/dL Borderline highLDL 160-189 mg/dL HighLDL greater than 189 mg/dL Very high Cholesterol in VLDL Calc [Ma ss/Vol]Ordered By: Dedrick Fuller on 08-15-2023 Cholesterol in VLDL [Mass/Vol] 32 mg/dL [facility] Creatinine [Mass/volume] in Serum or PlasmaOrdered By: Dderick Fuller on 08-15-2023 Creatinine [Mass/Vol] 0.77 mg/dL 0.60-1.20 [facility] Glucose [Mass/volume] in Ser um or PlasmaOrdered By: Dedrick Fuller on 08-15-2023 Glucose [Mass/Vol] 97 mg/dL 70-100 [facility] Comment on above: ADA recommended refe rence rangeRandom Glucose Reference Range is dependent on time and content of last meal. Glucose of more than 200 mg/dL in a nonstressed, ambulatory subject supports the diagnosis of Diabetes Mellitus. No Panel InformationOrdered By: Dedrick Fuller on 08-15-2023 Estimated GFR (CKD-EPI) > 60.0 mL/Min [facility] Creatinine Clearance (Chem N/A [facility] Potassium [Moles/volume] in Serum or PlasmaOrdered By: Dedrick Fuller on 08-15-2023 Potassium [Moles/Vol] 4.0 mmol/L 3.5-5.1 [facility] Serum or plasma anion gap de terminationOrdered By: Dedrick Fuller on 08-15-2023 Anion gap [Moles/Vol] 10.3 mmol/L 6.0-15.0 [facility] Serum or plasma high density lipoprotein (HDL) cholesterol measurementOrdered By: Dedrick Fuller on 08-15-2023 Cholesterol in HDL [Mass/Vol] 39 mg/dL 23-92 [facility] Comment on above: HDL CHOL ATP-III CLA SSIFICATION Cardiovascular RiskHDL > or equal to 60 mg/dL LOWHDL < 40 mg/dL HIGH Serum or plasma total choles terol/high density lipoprotein (HDL) cholesterol mass ratOrdered By: Dedrick Fuller on 08-15-2023 Cholesterol.total/Chol esterol in HDL [Mass ratio] 4.3 {ratio} <5.0 [facility] Sodium [Moles/volume] in Ser um or PlasmaOrdered By: Dedrick Fuller on 08-15-2023 Sodium [Moles/Vol] 140 mmol/L 136-145 [facility] Triglyceride [Mass/volume] i n Serum or PlasmaOrdered By: Dedrick Fuller on 08-15-2023 Triglyceride [Mass/Vol] 162 mg/dL 0-149 [facility] Comment on above: TRIG ATP III CLASSIF ICATIONTRIG less than 150 mg/dL NormalTRIG 150-199 mg/dL Borderline highTRIG 200-500 mg/dL High TRIG greater than 500 mg/dL Very highStandard traceable to the Center for Disease Conrtrol and Prevention (CDC) test method. Urea nitrogen [Mass/volume] in Serum or PlasmaOrdered By: Dedrick Fuller on 08-15-2023 Urea nitrogen [Mass/Vol] 10 mg/dL 7- [facility] GTT 2 HRon 11-09-2022 Glucose [Mass/Vol] 107 mg/dL Critically high 74-106 [facility] Comment on above: Performed By: #### U LG, CRP #### [facility] [address] [address] [address] Soo Donnelly Glucose [Mass/Vol] 152 mg/dL Normal [facility] Comment on above: Performed By: #### U LG, CRP #### [facility] [address] [place] [address] [address] Soo Donnelly Glucose [Mass/Vol] 121 mg/dL Normal [facility] Comment on above: Performed By: #### U LG, CRP #### [facility] [id number] Soo [address]ly [address] ABD/PELV W CONon [...] ELENA SAUCEDA Date: 2022-10-01 10:31 Normal [facility] CBC AUTO DIFFon 09-18-2022 BASO # 0.0 103/ul Normal 0.0-0.1 [facility] Comment on above: Performed By: #### A NAD #### [facility] [address] [place], [place] [address] Dr. Soo Donnelly Basophils/100 WBC (Bld) 0.4 % Normal 0.2-2.0 [facility] Comment on above: Performed By: #### A NAD #### [facility] [address] [place] [address] Dr. Soo Donnelly EO # 0.1 103/ul Normal 0.0-0.7 [facility] Comment on above: Performed By: #### A NAD #### [facility] [address] [place] [address] Dr. Soo Donnelly Eosinophils/100 WBC (Bld) 1.8 % Normal 0.9-7.0 [facility] Comment on above: Performed By: #### A NAD #### [facility] [address] [place] [address] Dr. Soo Donnelly Erythrocyte distribution width (RBC) [Ratio] 11.9 % Normal 11.0-15.0 [facility] Comment on above: Performed By: #### A NAD #### [facility] [address] [place] [address] Dr. Soo Donnelly Hematocrit (Bld) [Volume fraction] 43.9 % Normal 36.0-48.0 [facility] Comment on above: Performed By: #### A NAD #### [facility] [address] [place] [address] Dr. Soo Donnelly Hemoglobin (Bld) [Mass/Vol] 14.6 g/dL Normal 12.0-16.0 [facility] Comment on above: Performed By: #### A NAD #### [facility] [address] [place] [address] Dr. Soo Donnelly IG # 0.01 10e3/ul Normal 0.00-0.03 [facility] Comment on above: Performed By: #### A NAD #### [facility] [address] [place] [address] Dr. Soo Donnelly IG % 0.1 % Normal 0.0-0.5 [facility] Comment on above: Performed By: #### A NAD #### [facility] [address] [place] [address] Dr. Soo Donnelly LYMPH # 2.7 103/ul Normal 1.2-3.8 [facility] Comment on above: Performed By: #### A NAD #### [facility] [address] [place] [address] Dr. Soo Donnelly Lymphocytes/100 WBC (Bld) 39.9 % Normal 20.5-60.0 [facility] Comment on above: Performed By: #### A NAD #### [facility] [address] [place] [address] Dr. Soo Dnonelly MANUAL DIFF REQ NO Normal [facility] Comment on above: Performed By: #### A NAD #### [facility] [address] [place] [address] Dr. Soo Donnelly MCH (RBC) [Entitic mass] 31.7 pg Normal 26.7-34.0 [facility] Comment on above: Performed By: #### A NAD #### [facility] [address] [place] [address] Dr. Soo Donnelly MCHC (RBC) [Mass/Vol] 33.3 g/dL Normal 29.9-35.2 [facility] Comment on above: Performed By: #### A NAD #### [facility] [address] [place] [address] Dr. Soo Donnelly MCV (RBC) [Entitic vol] 95.4 fL Normal 81.0-99.0 [facility] Comment on above: Performed By: #### A NAD #### [facility] [address] [place] [address] Dr. Soo Donnelly MONO # 0.4 103/ul Normal 0.3-0.8 [facility] Comment on above: Performed By: #### A NAD #### [facility] [address] [place] [address] Dr. Soo Donnelly Monocytes/100 WBC (Bld) 5.9 % Normal 1.7-12.0 [facility] Comment on above: Performed By: #### A NAD #### [facility] [address] [place] [address] Dr. Soo Donnelly NEUT # 3.5 103/ul Normal 1.4-6.5 [facility] Comment on above: Performed By: #### A NAD #### [facility] [address] [place] [address] Dr. Soo Donnelly Neutrophils/100 WBC (Bld) 51.9 % Normal 43.0-75.0 [facility] Comment on above: Performed By: #### A NAD #### [facility] [address] [place] [address] Dr. Soo Donnelly Platelet mean volume (Bld) [Entitic vol] 10.8 fL Normal 9.5-13.5 [facility] Comment on above: Performed By: #### A NAD #### [facility] [address] [place] [address] Dr. Soo Donnelly PLT 220 103/ul Normal 150-450 [facility] Comment on above: Performed By: #### A NAD #### [facility] [address] [place] [address] Dr. Soo Donnelly RBC 4.60 106/ul Normal 4.20-5.40 [facility] Comment on above: Performed By: #### A NAD #### [facility] [address] [place] [address] Dr. Soo Donnelly WBC 6.8 103/ul Normal 4.0-11.0 [facility] Comment on above: Performed By: #### A NAD #### [facility] [address] [place] [address] Dr. Soo Donnelly ER URINE PROFILEon 2 Bilirubin Ql (U) Negative Normal NEGATIVE [facility] Comment on above: Performed By: #### U LG, CRP #### [facility] [address] [place] [address] Dr. Soo Donnelly Clarity (U) CLEAR Normal CLEAR [facility] Comment on above: Performed By: #### U LG, CRP #### [facility] [address] [place] [address] Dr. Soo Donnelly Color (U) LT. YELLOW Normal YELLOW [facility] Comment on above: Performed By: #### U LG, CRP #### [facility] [address] [place] [address] Dr. Soo Donnelly ERUAHD A micrscopic examina tion will be performed if indicated. Normal [facility] Comment on above: Performed By: #### U LG, CRP #### [facility] [address] [place] [address] Dr. Soo Donnelly Glucose Ql (U) Negative Normal NEGATIVE [facility] Comment on above: Performed By: #### U LG, CRP #### [facility] [address] [place] [address] Dr. Soo Donnelly Hemoglobin Ql (U) Negative Normal NEGATIVE [facility] Comment on above: Performed By: #### U LG, CRP #### [facility] [address] [place] [address] Dr. Soo Donnelly Ketones Ql (U) Negative Normal NEGATIVE [facility] Comment on above: Performed By: #### U LG, CRP #### [facility] [address] [place] [address] Dr. Soo Donnelly LEUKOCYTES Negative Normal NEGATIVE [facility] Comment on above: Performed By: #### U LG, CRP #### [facility] [address] [place] [address] Dr. Soo Donnelly Nitrite Ql (U) Negative Normal NEGATIVE [facility] Comment on above: Performed By: #### U LG, CRP #### [facility] [address] [place] [address] Dr. Soo Donnelly pH (U) 6.0 [pH] Normal 5-9 [facility] Comment on above: Performed By: #### U LG, CRP #### [facility] [address] [place] [address] Dr. Soo Donnelly SPEC GRAVITY 1.015 Normal 1.005-<=1. 025 [facility] [facility] Comment on above: Performed By: #### U LG, CRP #### [facility] [address] [place] [address] Dr. Soo Donnelly UA PROTEIN Negative Normal NEGATIVE/ TRACE [facility] Comment on above: Performed By: #### U LG, CRP #### [facility] [address] [place] [address] Dr. Soo Donnelly UR MICRO IND NOT INDICATED Normal [facility] Comment on above: Performed By: #### U LG, CRP #### [facility] [address] [address] [address] Soo Donnelly Urobilinogen Qn (U) 0.2 {Roma'U}/dL Normal 0.2 - 1. 0 [facility] Comment on above: Performed By: #### U LG, CRP #### [facility] [address] [place] [address] Dr. Soo Donnelly PROF CHEM 8 (BAS METB)on Anion gap [Moles/Vol] 10.2 mmol/L Normal [facility] Comment on above: Performed By: #### B MP #### [facility] [address] [place] [address] Dr. Soo Donnelly Calcium [Mass/Vol] 8.7 mg/dL Normal 8.5-10.1 [facility] Comment on above: Performed By: #### B MP #### [facility] [address] [place] [address] Dr. Soo Donnelly Chloride [Moles/Vol] 103 mmol/L Normal 98-107 [facility] Comment on above: Performed By: #### B MP #### [facility] [address] [place] [address] Dr. Soo Donnelly CO2 [Moles/Vol] 27.9 mmol/L Normal 21.0-32.0 [facility] Comment on above: Performed By: #### B MP #### [facility] [address] [place] [address] Dr. Soo Donnelly Creatinine [Mass/Vol] 0.80 mg/dL Normal 0.55-1.02 [facility] Comment on above: Performed By: #### B MP #### [facility] [address] [place] [address] Dr. Soo Donnelly EGFR-AF BRITISH >60 Normal >=60 [facility] Comment on above: Performed By: #### B MP #### [facility] [address] [place] [address] Dr. Soo Donnelly EGFR-NON AF BRITISH >60 Normal >=60 [facility] Comment on above: Performed By: #### B MP #### [facility] [address] [address] [address] Soo Donnelly Glucose [Mass/Vol] 103 mg/dL Normal 74-106 [facility] Comment on above: Performed By: #### B MP #### [facility] [address] [address] [address] Soo Donnelly Potassium [Moles/Vol] 4.1 mmol/L Normal 3.5-5.1 [facility] Comment on above: Performed By: #### B MP #### [facility] [address] [address] [address] Soo Donnelly Sodium [Moles/Vol] 137 mmol/L Normal 136-145 [facility] Comment on above: Performed By: #### B MP #### [facility] [address] [address] [address] Soo Donnelly Urea nitrogen [Mass/Vol] 11.0 mg/dL Normal 7.0-18.0 [facility] Comment on above: Performed By: #### B MP #### [facility] [address] [address] [address] Soo Donnelly Urea nitrogen/Creatinine [Mass ratio] 13.8 mg/mg Normal [facility] Comment on above: Performed By: #### B MP #### [facility] [address] [address] [address] Soo Donnelly XR KUB 1 VIEWon [...] ELENA SAUCEDA Date: 2022-09-18 12:12 Normal [facility] MG MAMM SCREEN 3D DEAN CADon 09-12-2022 MG MAMM SCREEN 3D DEAN CAD Patient: HORACIO KEATING Exam Date: 09/12/2022 : 1975 Gender:F Ordering : DR DELGADO MURILLO . Admission #: [id number] Family : Order #: [id number] CLICK HERE TO VIEW EXAM RADIOLOGY REPORT [...] ovarian cancer at age 77. LOCATION: [facility] BREAST COMPOSITION: Scattered areas fibroglandular [...] MD on 09/13/2022 at 07:46 Normal [facility] INSULINon 07-20-2022 Insulin 25.5 uIU/mL Critically high 2.6-24.9 [facility] Comment on above: Performed By: #### U LG, CRP #### [facility] [address] [place] [address] Dr. Soo Donnelly T4 LABCORPon 07-20-2022 T4 [Mass/Vol] 7.4 ug/dL Normal 4.5-12.0 [facility] Comment on above: Performed By: #### A NAD #### [facility] [address] [place] [address] Dr. Soo Donnelly CBC W MANUAL DIFFon 07-19-20 22 ATYPICAL LYMPH # Normal [facility] Comment on above: Performed By: #### B UN, CREA #### [facility] [address] [place] [address] Dr. Soo Donnelly ATYPICAL LYMPH % Normal [facility] Comment on above: Performed By: #### B UN, CREA #### [facility] [address] [place] [address] Dr. Soo Donnelly BAND # Normal 0.0-0.3 [facility] Comment on above: Performed By: #### B UN, CREA #### [facility] [address] [place] [address] Dr. Soo Donnelly BAND % Normal 0-5 [facility] Comment on above: Performed By: #### B UN, CREA #### [facility] [address] [place] [address] Dr. Soo Donnelly BASOM # 0.00 103/ul Normal 0.00-0.10 [facility] Comment on above: Performed By: #### B UN, CREA #### [facility] [address] [place] [address] Dr. Soo Donnelly BASOM % 0.0 % Critically low 0.2-2.0 [facility] Comment on above: Performed By: #### B UN, CREA #### [facility] [address] [place] [address] Dr. Soo Donnelly BLAST # Normal [facility] Comment on above: Performed By: #### B UN, CREA #### [facility] [address] [place] [address] Dr. Soo Donnelly BLAST % Normal [facility] Comment on above: Performed By: #### B UN, CREA #### [facility] [address] [place] [address] Dr. Soo Donnelly CORRECTED WBC Normal 4.0-11.0 [facility] Comment on above: Performed By: #### B UN, CREA #### [facility] [address] [place] [address] Dr. Soo Donnelly EOS # 0.31 103/ul Normal 0.00-0.70 [facility] Comment on above: Performed By: #### B UN, CREA #### [facility] [address] [place] [address] Dr. Soo Donnelly EOS% 2.0 % Normal 0.9-7.0 [facility] Comment on above: Performed By: #### B UN, CREA #### [facility] [address] [place] [address] Dr. Soo Donnelly HCT 41.6 % Normal 36.0-48.0 [facility] Comment on above: Performed By: #### B UN, CREA #### [facility] [address] [place] [address] Dr. Soo Donnelly HGB 13.8 g/dl Normal 12.0-16.0 [facility] Comment on above: Performed By: #### B UN, CREA #### [facility] [address] [place] [address] Dr. Soo Donnelly LYMPHM # 5.27 103/ul Critically high 1.20-3.80 [facility] Comment on above: Performed By: #### B UN, CREA #### [facility] [address] [place] [address] Dr. Soo Donnelly LYMPHM% 34.0 % Normal 20.5-60.0 [facility] Comment on above: Performed By: #### B UN, CREA #### [facility] [address] [place] [address] Dr. Soo Donnelly MCH 31.5 pg Normal 26.7-34.0 [facility] Comment on above: Performed By: #### B UN, CREA #### [facility] [address] [place] [address] Dr. Soo Donnelly MCHC 33.2 g/dl Normal 29.9-35.2 [facility] Comment on above: Performed By: #### B UN, CREA #### [facility] [address] [place] [address] Dr. Soo Donnelly MCV 95.0 fL Normal 81.0-99.0 [facility] Comment on above: Performed By: #### B UN, CREA #### [facility] [address] [place] [address] Dr. Soo Donnelly METAMYELOCYTE # Normal [facility] Comment on above: Performed By: #### B UN, CREA #### [facility] [address] [place] [address] Dr. Soo Donnelly METAMYELOCYTE % Normal [facility] Comment on above: Performed By: #### B UN, CREA #### [facility] [address] [place] [address] Dr. Soo Donnelly MONOM# 0.93 103/ul Critically high 0.30-0.80 [facility] Comment on above: Performed By: #### B UN, CREA #### [facility] [address] [place] [address] Dr. Soo Donnelly MONOM% 6.0 % Normal 1.7-12.0 [facility] Comment on above: Performed By: #### B UN, CREA #### [facility] [address] [place] [address] Dr. Soo Donnelly MPV 10.1 fL Normal 9.5-13.5 [facility] Comment on above: Performed By: #### B UN, CREA #### [facility] [address] [place] [address] Dr. Soo Donnelly MYELOCYTE # Normal [facility] Comment on above: Performed By: #### B UN, CREA #### [facility] [address] [place] [address] Dr. Soo Donnelly MYELOCYTE % Normal [facility] Comment on above: Performed By: #### B UN, CREA #### [facility] [address] [place] [address] Dr. Soo Donnelly NRBC Normal [facility] Comment on above: Performed By: #### B UN, CREA #### [facility] [address] [place] [address] Dr. Soo Donnelly PLT 260 103/ul Normal 150-450 [facility] Comment on above: Performed By: #### B UN, CREA #### [facility] [address] [place] [address] Dr. Soo Donnelly RBC 4.38 106/ul Normal 4.20-5.40 [facility] Comment on above: Performed By: #### B UN, CREA #### [facility] [address] [place] [address] Dr. Soo Donnelly RDW 12.5 % Normal 11.0-15.0 [facility] Comment on above: Performed By: #### B UN, CREA #### [facility] [address] [place] [address] Dr. Soo Donnelly SEG # 8.99 103/ul Critically high 1.40-6.50 [facility] Comment on above: Performed By: #### B UN, CREA #### [facility] [address] [place] [address] Dr. Soo Donnelly SEG % 58.0 % Normal 43.0-75.0 [facility] Comment on above: Performed By: #### B UN, CREA #### [facility] [address] [place] [address] Dr. Soo Donnelly WBC 15.5 103/ul Critically high 4.0-11.0 [facility] Comment on above: Performed By: #### B UN, CREA #### [facility] [address] [place] [address] Dr. Soo Donnelly FREE T3on 07-19-2022 FREE T3 2.62 pg/mlL Normal 2.18-3.98 [facility] Comment on above: Performed By: #### U LG, CRP #### [facility] [address] [place] [address] Dr. Soo Donnelly GLYCOHEMOGLOBIN A1Con 2021 ADA RECOMMENDATION SEE BELOW Normal [facility] Comment on above: Result Comment: ADA RECOMMENDED LIMIT 4.0 - 6.0 ADA THERAPEUTIC TARGET < 7.0 ACTION SUGGESTED > 7.0 Performed By: #### U LG, CRP #### [facility] [address] [place] [address] Dr. Soo Donnelly Glucose [Mass/Vol] 137 mg/dL Normal [facility] Comment on above: Performed By: #### U LG, CRP #### [facility] [address] [address] [address] Soo Donnelly HbA1c (Bld) [Mass fraction] 6.4 % Critically high 4.5-6.2 [facility] Comment on above: Performed By: #### U LG, CRP #### [facility] [address] [address] [address] Soo Donnelly LIPID PROFILEon 07-19-2022 CHOL-HDL RATIO NORM SEE BELOW Normal [facility] Comment on above: Result Comment: 3.3 - 4.4 LOW RISK 4.4 - 7.1 AVERAGE RISK 7.1 - 11.0 MODERATE RISK >11.0 HIGH RISK Performed By: #### U LG, CRP #### [facility] [address] [address] [address] Soo Donnelly Cholesterol [Mass/Vol] 226 mg/dL Critically high <=200 [facility] Comment on above: Performed By: #### U LG, CRP #### [facility] [address] [address] [address] Soo Donnelly Cholesterol in HDL [Mass/Vol] 33 mg/dL Critically low 40-60 [facility] Comment on above: Performed By: #### U LG, CRP #### [facility] [address] [address] [address] Soo Donnelly Cholesterol in LDL [Mass/Vol] 135.2 mg/dL Normal [facility] Comment on above: Performed By: #### U LG, CRP #### [facility] [address] [address] [address] Soo Donnelly Cholesterol.total/Chol esterol in HDL [Mass ratio] 6.8 {ratio} Normal [facility] Comment on above: Performed By: #### U LG, CRP #### [facility] [address] [address] [address] Soo Donnelly HDL NORMAL > or = 60 mg/dl - LO W CARDIOVASCULAR RISK <40 mg/dl - HIGH CARDIOVASCULAR RISK Normal [facility] Comment on above: Performed By: #### U LG, CRP #### [facility] [address] [address] [address] Soo Donnelly LDL CALC NORMAL SEE BELOW Normal [facility] Comment on above: Result Comment: <100 mg/dl OPTIMAL 100 - 129 mg/dl NEAR OR ABOVE OPTIMAL 130 - 159 mg/dl BORDERLINE HIGH 160 - 189 mg/dl HIGH >190 mg/dl VERY HIGH Performed By: #### U LG, CRP #### [facility] [address] [address] [address] Soo Donnelly Triglyceride [Mass/Vol] 289 mg/dL Critically high <=150 [facility] Comment on above: Performed By: #### U LG, CRP #### [facility] [address] [address] [address] Soo Donnelly VLDL CALC 57.8 mg/dL Normal [facility] Comment on above: Performed By: #### U LG, CRP #### [facility] [address] [address] [address] Soo Donnelly PROF 14(COMP METB)on 022 Albumin [Mass/Vol] 3.2 g/dL Critically low 3.4-5.0 [facility] Comment on above: Performed By: #### U LG, CRP #### [facility] [address] [address] [address] Soo Donnelly Albumin/Globulin [Mass ratio] 1.1 {ratio} Normal [facility] Comment on above: Performed By: #### U LG, CRP #### [facility] [address] [address] [address] Soo Donnelly ALP [Catalytic activity/Vol] 41 U/L Critically low 46-116 [facility] Comment on above: Performed By: #### U LG, CRP #### [facility] [address] [address] [address] Soo Donnelly ALT [Catalytic activity/Vol] 46 U/L Normal 14-59 [facility] Comment on above: Performed By: #### U LG, CRP #### [facility] [address] [address] [address] Soo Donnelly Anion gap [Moles/Vol] 9.3 mmol/L Normal [facility] Comment on above: Performed By: #### U LG, CRP #### [facility] [address] [address] [address] Soo Donnelly AST [Catalytic activity/Vol] 18 U/L Normal 15-37 [facility] Comment on above: Performed By: #### U LG, CRP #### [facility] [address] [address] [address] Soo Donnelly Bilirubin [Mass/Vol] 0.7 mg/dL Normal 0.2-1.0 [facility] Comment on above: Performed By: #### U LG, CRP #### [facility] [address] [address] [address] Soo Donnelly Calcium [Mass/Vol] 8.1 mg/dL Critically low 8.5-10.1 [facility] Comment on above: Performed By: #### U LG, CRP #### [facility] [address] [address] [address] Soo Donnelly Chloride [Moles/Vol] 101 mmol/L Normal 98-107 [facility] Comment on above: Performed By: #### U LG, CRP #### [facility] [address] [address] [address] Soo Donnelly CO2 [Moles/Vol] 31.1 mmol/L Normal 21.0-32.0 [facility] Comment on above: Performed By: #### U LG, CRP #### [facility] [address] [address] [address] Soo Donnelly Creatinine [Mass/Vol] 0.77 mg/dL Normal 0.55-1.02 [facility] Comment on above: Performed By: #### U LG, CRP #### [facility] [address] [address] [address] Soo Donnelly EGFR-AF BRITISH >60 Normal >=60 [facility] Comment on above: Performed By: #### U LG, CRP #### [facility] [address] [place] [address] Dr. Soo Donnelly EGFR-NON AF BRITISH >60 Normal >=60 [facility] Comment on above: Performed By: #### U LG, CRP #### [facility] [address] [address] [address] Soo Donnelly Globulin (S) [Mass/Vol] 3.0 g/dL Normal [facility] Comment on above: Performed By: #### U LG, CRP #### [facility] [address] [place] [address] Dr. Soo Donnelly Glucose [Mass/Vol] 104 mg/dL Normal 74-106 [facility] Comment on above: Performed By: #### U LG, CRP #### [facility] [address] [address] [address] Soo Donnelly Potassium [Moles/Vol] 3.4 mmol/L Critically low 3.5-5.1 [facility] Comment on above: Performed By: #### U LG, CRP #### [facility] [address] [place] [address] Dr. Soo Donnelly Protein [Mass/Vol] 6.2 g/dL Critically low 6.4-8.2 [facility] Comment on above: Performed By: #### U LG, CRP #### [facility] [address] [place] [address] Dr. Soo Donnelly Sodium [Moles/Vol] 138 mmol/L Normal 136-145 [facility] Comment on above: Performed By: #### U LG, CRP #### [facility] [address] [place] [address] Dr. Soo Donnelly Urea nitrogen [Mass/Vol] 16.0 mg/dL Normal 7.0-18.0 [facility] Comment on above: Performed By: #### U LG, CRP #### [facility] [address] [place] [address] Dr. Soo Donnelly Urea nitrogen/Creatinine [Mass ratio] 20.8 mg/mg Normal [facility] Comment on above: Performed By: #### U LG, CRP #### [facility] [address] [place] [address] Dr. Soo Donnelly TSHon 07-19-2022 TSH 3.262 uIU/mL Normal 0.358-3.74 0 [facility] Comment on above: Performed By: #### U LG, CRP #### [facility] [address] [address] [address] Soo Donnelly CBC AUTO DIFFon 05-18-2022 BASO # 0.0 103/ul Normal 0.0-0.1 [facility] Comment on above: Performed By: #### U LG, CRP #### [facility] [address] [address] [address] Soo Donnelly Basophils/100 WBC (Bld) 0.2 % Normal 0.2-2.0 [facility] Comment on above: Performed By: #### U LG, CRP #### [facility] [address] [place] [address] Dr. Soo Donnelly EO # 0.0 103/ul Normal 0.0-0.7 [facility] Comment on above: Performed By: #### U LG, CRP #### [facility] [address] [place] [address] Dr. Soo Donnelly Eosinophils/100 WBC (Bld) 0.2 % Critically low 0.9-7.0 [facility] Comment on above: Performed By: #### U LG, CRP #### [facility] [address] [address] [address] Soo Donnelly Erythrocyte distribution width (RBC) [Ratio] 12.8 % Normal 11.0-15.0 [facility] Comment on above: Performed By: #### U LG, CRP #### [facility] [address] [address] [address] Soo Donnelly Hematocrit (Bld) [Volume fraction] 35.7 % Critically low 36.0-48.0 [facility] Comment on above: Performed By: #### U LG, CRP #### [facility] [address] [place] [address] Dr. Soo Donnelly Hemoglobin (Bld) [Mass/Vol] 11.5 g/dL Critically low 12.0-16.0 [facility] Comment on above: Performed By: #### U LG, CRP #### [facility] [address] [place] [address] Dr. Soo Donnelly IG # 0.07 10e3/ul Critically high 0.00-0.03 [facility] Comment on above: Performed By: #### U LG, CRP #### [facility] [address] [place] [address] Dr. Soo Donnelly IG % 0.5 % Normal 0.0-0.5 [facility] Comment on above: Performed By: #### U LG, CRP #### [facility] [address] [address] [address] Soo Donnelly LYMPH # 4.1 103/ul Critically high 1.2-3.8 [facility] Comment on above: Performed By: #### U LG, CRP #### [facility] [address] [place] [address] Dr. Soo Donnelly Lymphocytes/100 WBC (Bld) 28.3 % Normal 20.5-60.0 [facility] Comment on above: Performed By: #### U LG, CRP #### [facility] [address] [place] [address] Dr. Soo Donnelly MANUAL DIFF REQ NO Normal [facility] Comment on above: Performed By: #### U LG, CRP #### [facility] [address] [place] [address] Dr. Soo Donnelly MCH (RBC) [Entitic mass] 31.7 pg Normal 26.7-34.0 [facility] Comment on above: Performed By: #### U LG, CRP #### [facility] [address] [place] [address] Dr. Soo Donnelly MCHC (RBC) [Mass/Vol] 32.2 g/dL Normal 29.9-35.2 [facility] Comment on above: Performed By: #### U LG, CRP #### [facility] [address] [place] [address] Dr. Soo Donnelly MCV (RBC) [Entitic vol] 98.3 fL Normal 81.0-99.0 [facility] Comment on above: Performed By: #### U LG, CRP #### [facility] [address] [place] [address] Dr. Soo Donnelly MONO # 0.8 103/ul Normal 0.3-0.8 [facility] Comment on above: Performed By: #### U LG, CRP #### [facility] [address] [place] [address] Dr. Soo Donnelly Monocytes/100 WBC (Bld) 5.6 % Normal 1.7-12.0 [facility] Comment on above: Performed By: #### U LG, CRP #### [facility] [address] [place] [address] Dr. Soo Donnelly NEUT # 9.4 103/ul Critically high 1.4-6.5 [facility] Comment on above: Performed By: #### U LG, CRP #### [facility] [address] [place] [address] Dr. Soo Donnelly Neutrophils/100 WBC (Bld) 65.2 % Normal 43.0-75.0 [facility] Comment on above: Performed By: #### U LG, CRP #### [facility] [address] [place] [address] Dr. Soo Donnelly Platelet mean volume (Bld) [Entitic vol] 10.8 fL Normal 9.5-13.5 [facility] Comment on above: Performed By: #### U LG, CRP #### [facility] [address] [place] [address] Dr. Soo Donnelly PLT 191 103/ul Normal 150-450 [facility] Comment on above: Performed By: #### U LG, CRP #### [facility] [address] [place] [address] Dr. Soo Donnelly RBC 3.63 106/ul Critically low 4.20-5.40 [facility] Comment on above: Performed By: #### U LG, CRP #### [facility] [address] [place] [address] Dr. Soo Donnelly WBC 14.4 103/ul Critically high 4.0-11.0 [facility] Comment on above: Performed By: #### U LG, CRP #### [facility] [facility] [address] [place] [address] Dr. Soo Burdick 05-17-2022 Urea nitrogen [Mass/Vol] 8.0 mg/dL Normal 7.0-18.0 [facility] Comment on above: Performed By: #### B UN, CREA #### [facility] [address] [place] [address] Dr. Soo Donnelly CBC AUTO DIFFon 05-17-2022 BASO # 0.0 103/ul Normal 0.0-0.1 [facility] Comment on above: Performed By: #### U LG, CRP #### [facility] [address] [place] [address] Dr. Soo Donnelly Basophils/100 WBC (Bld) 0.1 % Critically low 0.2-2.0 [facility] Comment on above: Performed By: #### U LG, CRP #### [facility] [address] [place] [address] Dr. Soo Donnelly EO # 0.0 103/ul Normal 0.0-0.7 [facility] Comment on above: Performed By: #### U LG, CRP #### [facility] [address] [place] [address] Dr. Soo Donnelly Eosinophils/100 WBC (Bld) 0.0 % Critically low 0.9-7.0 [facility] Comment on above: Performed By: #### U LG, CRP #### [facility] [address] [place] [address] Dr. Soo Donnelly Erythrocyte distribution width (RBC) [Ratio] 12.5 % Normal 11.0-15.0 [facility] Comment on above: Performed By: #### U LG, CRP #### [facility] [address] [place] [address] Dr. Soo Donnelly Hematocrit (Bld) [Volume fraction] 38.5 % Normal 36.0-48.0 [facility] Comment on above: Performed By: #### U LG, CRP #### [facility] [address] [place] [address] Dr. Soo Donnelly Hemoglobin (Bld) [Mass/Vol] 13.0 g/dL Normal 12.0-16.0 [facility] Comment on above: Performed By: #### U LG, CRP #### [facility] [address] [address] [address] Soo Donnelly IG # 0.16 10e3/ul Critically high 0.00-0.03 [facility] Comment on above: Performed By: #### U LG, CRP #### [facility] [address] [place] [address] Dr. Soo Donnelly IG % 0.7 % Critically high 0.0-0.5 [facility] Comment on above: Performed By: #### U LG, CRP #### [facility] [address] [address] [address] Soo Donnelly LYMPH # 3.0 103/ul Normal 1.2-3.8 [facility] Comment on above: Performed By: #### U LG, CRP #### [facility] [address] [place] [address] Dr. Soo Donnelly Lymphocytes/100 WBC (Bld) 12.2 % Critically low 20.5-60.0 [facility] Comment on above: Performed By: #### U LG, CRP #### [facility] [address] [place] [address] Dr. Soo Donnelly MANUAL DIFF REQ NO Normal [facility] Comment on above: Performed By: #### U LG, CRP #### [facility] [address] [place] [address] Dr. Soo Donnelly MCH (RBC) [Entitic mass] 32.4 pg Normal 26.7-34.0 [facility] Comment on above: Performed By: #### U LG, CRP #### [facility] [address] [place] [address] Dr. Soo Donnelly MCHC (RBC) [Mass/Vol] 33.8 g/dL Normal 29.9-35.2 [facility] Comment on above: Performed By: #### U LG, CRP #### [facility] [address] [place] [address] Dr. Soo Donnelly MCV (RBC) [Entitic vol] 96.0 fL Normal 81.0-99.0 [facility] Comment on above: Performed By: #### U LG, CRP #### [facility] [address] [address] [address] Soo Donnelly MONO # 1.3 103/ul Critically high 0.3-0.8 [facility] Comment on above: Performed By: #### U LG, CRP #### [facility] [address] [address] [address] Soo Donnelly Monocytes/100 WBC (Bld) 5.4 % Normal 1.7-12.0 [facility] Comment on above: Performed By: #### U LG, CRP #### [facility] [address] [address] [address] Soo Donnelly NEUT # 19.8 103/ul Critically high 1.4-6.5 [facility] Comment on above: Performed By: #### U LG, CRP #### [facility] [address] [place] [address] Dr. Soo Donnelly Neutrophils/100 WBC (Bld) 81.6 % Critically high 43.0-75.0 [facility] Comment on above: Performed By: #### U LG, CRP #### [facility] [address] [address] [address] Soo Donnelly Platelet mean volume (Bld) [Entitic vol] 10.5 fL Normal 9.5-13.5 [facility] Comment on above: Performed By: #### U LG, CRP #### [facility] [address] [address] [address] Soo Donnelly PLT 253 103/ul Normal 150-450 [facility] Comment on above: Performed By: #### U LG, CRP #### [facility] [address] [place] [address] Dr. Soo Donnelly RBC 4.01 106/ul Critically low 4.20-5.40 [facility] Comment on above: Performed By: #### U LG, CRP #### [facility] [address] [address] [address] Soo Donnelly WBC 24.3 103/ul Critically high 4.0-11.0 [facility] Comment on above: Performed By: #### U LG, CRP #### [facility] [address] [address] [address] Soo KRISHNAMURTHY # 0.0 103/ul Normal 0.0-0.1 [facility] Comment on above: Performed By: #### U LG, CRP #### [facility] [address] [address] [address] Soo Donnelly Basophils/100 WBC (Bld) 0.1 % Critically low 0.2-2.0 [facility] Comment on above: Performed By: #### U LG, CRP #### [facility] [address] [place] [address] Dr. Soo Donnelly EO # 0.0 103/ul Normal 0.0-0.7 [facility] Comment on above: Performed By: #### U LG, CRP #### [facility] [address] [place] [address] Dr. Soo Donnelly Eosinophils/100 WBC (Bld) 0.0 % Critically low 0.9-7.0 [facility] Comment on above: Performed By: #### U LG, CRP #### [facility] [address] [address] [address] Soo Donnelly Erythrocyte distribution width (RBC) [Ratio] 12.3 % Normal 11.0-15.0 [facility] Comment on above: Performed By: #### U LG, CRP #### [facility] [address] [address] [address] Soo Donnelly Hematocrit (Bld) [Volume fraction] 41.2 % Normal 36.0-48.0 [facility] Comment on above: Performed By: #### U LG, CRP #### [facility] [address] [place] [address] Dr. Soo Donnelly Hemoglobin (Bld) [Mass/Vol] 13.5 g/dL Normal 12.0-16.0 [facility] Comment on above: Performed By: #### U LG, CRP #### [facility] [address] [address] [address] Soo Donnelly IG # 0.11 10e3/ul Critically high 0.00-0.03 [facility] Comment on above: Performed By: #### U LG, CRP #### [facility] [address] [place] [address] Dr. Soo Donnelly IG % 0.5 % Normal 0.0-0.5 [facility] Comment on above: Performed By: #### U LG, CRP #### [facility] [address] [address] [address] Soo Donnelly LYMPH # 1.6 103/ul Normal 1.2-3.8 [facility] Comment on above: Performed By: #### U LG, CRP #### [facility] [address] [place] [address] Dr. Soo Donnelly Lymphocytes/100 WBC (Bld) 7.8 % Critically low 20.5-60.0 [facility] Comment on above: Performed By: #### U LG, CRP #### [facility] [address] [place] [address] Dr. Soo Donnelly MANUAL DIFF REQ NO Normal [facility] Comment on above: Performed By: #### U LG, CRP #### [facility] [address] [address] [address] Soo Donnelly MCH (RBC) [Entitic mass] 31.8 pg Normal 26.7-34.0 [facility] Comment on above: Performed By: #### U LG, CRP #### [facility] [address] [place] [address] Dr. Soo Donnelly MCHC (RBC) [Mass/Vol] 32.8 g/dL Normal 29.9-35.2 [facility] Comment on above: Performed By: #### U LG, CRP #### [facility] [address] [place] [address] Dr. Soo Donnelly MCV (RBC) [Entitic vol] 96.9 fL Normal 81.0-99.0 [facility] Comment on above: Performed By: #### U LG, CRP #### [facility] [address] [place] [address] Dr. Soo Donnelly MONO # 0.4 103/ul Normal 0.3-0.8 [facility] Comment on above: Performed By: #### U LG, CRP #### [facility] [address] [place] [address] Dr. Soo Donnelly Monocytes/100 WBC (Bld) 2.0 % Normal 1.7-12.0 [facility] Comment on above: Performed By: #### U LG, CRP #### [facility] [address] [place] [address] Dr. Soo Donnelly NEUT # 18.1 103/ul Critically high 1.4-6.5 [facility] Comment on above: Performed By: #### U LG, CRP #### [facility] [address] [place] [address] Dr. Soo Donnelly Neutrophils/100 WBC (Bld) 89.6 % Critically high 43.0-75.0 [facility] Comment on above: Performed By: #### U LG, CRP #### [facility] [address] [place] [address] Dr. Soo Donnelly Platelet mean volume (Bld) [Entitic vol] 11.0 fL Normal 9.5-13.5 [facility] Comment on above: Performed By: #### U LG, CRP #### [facility] [address] [place] [address] Dr. Soo Donnelly PLT 223 103/ul Normal 150-450 [facility] Comment on above: Performed By: #### U LG, CRP #### [facility] [address] [place] [address] Dr. Soo Donnelly RBC 4.25 106/ul Normal 4.20-5.40 [facility] Comment on above: Performed By: #### U LG, CRP #### [facility] [address] [place] [address] Dr. Soo Donnelly WBC 20.2 103/ul Critically high 4.0-11.0 [facility] Comment on above: Performed By: #### U LG, CRP #### [facility] [address] [place] [address] Dr. Soo Donnelly CREATININEon 06-17-2022 Creatinine [Mass/Vol] 0.97 mg/dL Normal 0.55-1.02 [facility] Comment on above: Performed By: #### B UN, CREA #### [facility] [address] [address] [address] Soo Donnelly EGFR-AF BRITISH >60 Normal >=60 [facility] Comment on above: Performed By: #### B UN, CREA #### [facility] [address] [address] [address] Soo Donnelly EGFR-NON AF BRITISH >60 Normal >=60 [facility] Comment on above: Performed By: #### B UN, CREA #### [facility] [address] [address] [address] Soo Donnelly CTA CHEST WO W [...] SAUCEDA Date: 2022-05-17 16:40 Normal [facility] XR CHEST 2 Von 05-17-2022 XR [...] SAMI READER Date: 2022-05-17 16:10 Normal [facility] CBC AUTO DIFFon 05-16-2022 BASO # 0.1 103/ul Normal 0.0-0.1 [facility] Comment on above: Performed By: #### B UN, CREA #### [facility] [address] [place] [address] Dr. Soo Donnelly Basophils/100 WBC (Bld) 0.5 % Normal 0.2-2.0 [facility] Comment on above: Performed By: #### B JOANNA, CREA #### [facility] [address] [place] [address] Dr. Soo Donnelly EO # 0.1 103/ul Normal 0.0-0.7 [facility] Comment on above: Performed By: #### B JOANNA, CREA #### [facility] [address] [place] [address] Dr. Soo Donnelly Eosinophils/100 WBC (Bld) 1.0 % Normal 0.9-7.0 [facility] Comment on above: Performed By: #### B JOANNA, CREA #### [facility] [address] [place] [address] Dr. Soo Donnelly Erythrocyte distribution width (RBC) [Ratio] 12.2 % Normal 11.0-15.0 [facility] Comment on above: Performed By: #### B UN, CREA #### [facility] [address] [place] [address] Dr. Soo Donnelly Hematocrit (Bld) [Volume fraction] 41.2 % Normal 36.0-48.0 [facility] Comment on above: Performed By: #### B UN, CREA #### [facility] [address] [place] [address] Dr. Soo Donnelly Hemoglobin (Bld) [Mass/Vol] 13.9 g/dL Normal 12.0-16.0 [facility] Comment on above: Performed By: #### B UN, CREA #### [facility] [address] [place] [address] Dr. Soo Donnelly IG # 0.04 10e3/ul Critically high 0.00-0.03 [facility] Comment on above: Performed By: #### B UN, CREA #### [facility] [address] [place] [address] Dr. Soo Donnelly IG % 0.4 % Normal 0.0-0.5 [facility] Comment on above: Performed By: #### B UN, CREA #### [facility] [address] [place] [address] Dr. Soo Donnelly LYMPH # 3.5 103/ul Normal 1.2-3.8 [facility] Comment on above: Performed By: #### B UN, CREA #### [facility] [address] [place] [address] Dr. Soo Donnelly Lymphocytes/100 WBC (Bld) 35.3 % Normal 20.5-60.0 [facility] Comment on above: Performed By: #### B UN, CREA #### [facility] [address] [place] [address] Dr. Soo Donnelly MANUAL DIFF REQ NO Normal [facility] Comment on above: Performed By: #### B UN, CREA #### [facility] [address] [place] [address] Dr. Soo Donnelly MCH (RBC) [Entitic mass] 31.7 pg Normal 26.7-34.0 [facility] Comment on above: Performed By: #### B UN, CREA #### [facility] [address] [place] [address] Dr. Soo Donnelly MCHC (RBC) [Mass/Vol] 33.7 g/dL Normal 29.9-35.2 [facility] Comment on above: Performed By: #### B UN, CREA #### [facility] [address] [place] [address] Dr. Soo Donnelly MCV (RBC) [Entitic vol] 94.1 fL Normal 81.0-99.0 [facility] Comment on above: Performed By: #### B UN, CREA #### [facility] [address] [place] [address] Dr. Soo Donnelly MONO # 0.5 103/ul Normal 0.3-0.8 [facility] Comment on above: Performed By: #### B UN, CREA #### [facility] [address] [place] [address] Dr. Soo Donnelly Monocytes/100 WBC (Bld) 5.4 % Normal 1.7-12.0 [facility] Comment on above: Performed By: #### B UN, CREA #### [facility] [address] [place] [address] Dr. Soo Donnelly NEUT # 5.6 103/ul Normal 1.4-6.5 [facility] Comment on above: Performed By: #### B UN, CREA #### [facility] [address] [place] [address] Dr. Soo Donnelly Neutrophils/100 WBC (Bld) 57.4 % Normal 43.0-75.0 [facility] Comment on above: Performed By: #### B UN, CREA #### [facility] [address] [place] [address] Dr. Soo Donnelly Platelet mean volume (Bld) [Entitic vol] 10.3 fL Normal 9.5-13.5 [facility] Comment on above: Performed By: #### B UN, CREA #### [facility] [address] [place] [address] Dr. Soo Donnelly PLT 235 103/ul Normal 150-450 [facility] Comment on above: Performed By: #### B UN, CREA #### [facility] [address] [place] [address] Dr. Soo Donnelly RBC 4.38 106/ul Normal 4.20-5.40 [facility] Comment on above: Performed By: #### B UN, CREA #### [facility] [address] [address] [address] Soo Donnelly WBC 9.8 103/ul Normal 4.0-11.0 [facility] Comment on above: Performed By: #### B UN, CREA #### [facility] [address] [address] [address] Soo Donnelly PREG QUANT HCGon 05-16-2022 HCG QUANT <1 Normal [facility] Comment on above: Performed By: #### U LG, CRP #### [facility] [address] [address] [address] Soo Donnelly HCG RANGE SEE BELOW Normal [facility] Comment on above: Result Comment: 5-50 0-1 WEEK 40-300 1-2 WEEKS 100-1,000 2-3 WEEKS 500-6,000 3-4 WEEKS 5,000-200,000 1-2 MONTHS 10,000-100,000 2-3 MONTHS 3,000-50,000 2ND TRIMESTER 1,000-50,000 3RD TRIMESTER Performed By: #### U LG, CRP #### [facility] [address] [address] [address] Soo Donnelly Covid-19 PCR (CVDTB)on 05-01 SARS-CoV-2 (COVID-19) RNA [place]+probe Ql (Unsp spec) Not detected Normal NOT DETECTED [facility] Comment on above: Result Comment: This test is not yet approved or cleared by the [place] FDA. When there are no FDA-approved or cleared tests available, and other criteria are met, FDA can make tests available under an emergency access mechanism called an Emergency Use Authorization (EUA). The EUA for this test is supported by the [place] of Health and Human Service's (HHS's) declaration [...] SARS-CoV-2. Performed By: #### C VDTB #### [facility] [address] [place] [address] Dr. Soo Donnelly TYPE AND SCREENon 05-13-2022 TYPE AND SCREEN Negative Normal [facility] Comment on above: Performed By: #### B UN, CREA #### [facility] [address] [place] [address] Dr. Soo Donnelly PAP ACOG PANEL 2: 30 to 65on 05-07-2022 . . Normal [facility] Comment on above: Result Comment: Perf ormed at: WB Performed By: #### [id number] #### [facility] [address] [place] [address] Dr. Soo Donnelly Age Gdln ACOG Testing 30-65 Normal [facility] Comment on above: Performed By: #### [id number] #### [facility] [address] [place] [address] Dr. Soo Donnelly DIAGNOSIS: Comment Normal [facility] Comment on above: Result Comment: NEGA TIVE FOR INTRAEPITHELIAL LESION OR MALIGNANCY. Performed at: WB Performed By: #### [id number] #### [facility] [address] [place] [address] Dr. Soo Donnelly HPV Aptima Negative Normal Negative [facility] Comment on above: Result Comment: This nucleic acid amplification test detects fourteen high-risk HPV types (16,18,31,33,35,39,45,51,52,56,58,59,66,68) without differentiation. Performed at: =G Performed By: #### [id number] #### [facility] [address] [place] [address] Dr. Soo Donnelly Methodology: Comment Normal [facility] Comment on above: Result Comment: This liquid based ThinPrep(R) pap test was screened with the use of an image guided system. Performed at: WB Performed By: #### [id number] #### [facility] [address] [place] [address] Dr. Soo Donnelly Note: Comment Normal [facility] Comment on above: Result Comment: The Pap smear is a screening test designed to aid in the detection of premalignant and malignant conditions of the uterine cervix. It is not a diagnostic procedure and should not be used as the sole means of detecting cervical cancer. Both false-positive and false-negative reports do occur. . Performed at: WB Performed By: #### [id number] #### [facility] [address] [place] [address] Dr. Soo Donnelly Performed by: Comment Normal [facility] Comment on above: Result Comment: Angel Rod, Slasher Tender (ASCP) Performed at: WB Performed By: #### [id number] #### [facility] [address] [place] [address] Dr. Soo Donnelly Specimen adequacy: Comment Normal [facility] Comment on above: Result Comment: Sati sfactory for evaluation. Endocervical and/or squamous metaplastic cells (endocervical component) are present. Performed at: WB Performed By: #### [id number] #### [facility] [address] [place] [address] Dr. Soo Donnelly ROSS by IFAon 02-21-2022 Antinuclear Antibodies, IFA Negative [facility] Comment on above: Result Comment: Nega tive <1:80 Borderline 1:80 Positive >1:80 ICAP nomenclature: AC-0 For more information about Hep-2 cell patterns use ANApatterns.org, the official website for the International Consensus on Antinuclear Antibody (ROSS) Patterns (ICAP). Performed By: #### U LG, CRP #### [facility] [address] [place] [address] Dr. Soo Donnelly ROSS DIRECTon 02-20-2022 ROSS Direct Negative Normal Negative [facility] Comment on above: Performed By: #### A NAD #### [facility] [address] [place] [address] Dr. Soo Donnelly ANTISTREPTOLYSIN O AB (ASO)o n 02-20-2022 Antistreptolysin O Ab 115.3 IU/mL Normal 0.0-200.0 Th e [facility] Comment on above: Performed By: #### B UN, CREA #### [facility] [address] [address] [address] Soo Donnelly C3 and C4 COMPLEMENTon 02-20 Complement C3, Serum 137 mg/dL Normal 82-167 [facility] Comment on above: Performed By: #### U LG, CRP #### [facility] [address] [address] [address] Soo Donnelly Complement C4, Serum 23 mg/dL Normal 12-38 [facility] Comment on above: Performed By: #### U LG, CRP #### [facility] [address] [address] [address] Soo Donnelly SLE PROFILE Aon 02-20-2022 Anti-DNA (DS) Ab Qn <1 Normal 0-9 [facility] Comment on above: Result Comment: Nega tive <5 Equivocal 5 - 9 Positive >9 Performed By: #### S YARI #### [facility] [address] [place] [address] Dr. Soo Donnelly Antichromatin Antibodies <0.2 Normal 0.0-0.9 [facility] Comment on above: Performed By: #### S YARI #### [facility] [address] [place] [address] Dr. Soo Donnelly RA Latex Turbid. <10.0 Normal <14.0 [facility] Comment on above: Performed By: #### S YARI #### [facility] [address] [address] [address] Soo Donnelly PROFESSOR [employer] Antibodies <0.2 Normal 0.0-0.9 [facility] Comment on above: Performed By: #### S YARI #### [facility] [address] [place] [address] Dr. Soo Donnelly Sjogrdaniela'neel Anti-SS-A <0.2 Normal 0.0-0.9 [facility] Comment on above: Performed By: #### S YARI #### [facility] [address] [address] [address] Yilan Donnelly Sjogren's Anti-SS-B <0.2 Normal 0.0-0.9 [facility] Comment on above: Performed By: #### S YARI #### [facility] [address] [place] [address] Dr. Soo Donnelly Spann Antibodies <0.2 Normal 0.0-0.9 [facility] Comment on above: Performed By: #### S YARI #### [facility] [address] [place] [address] Dr. Soo Donnelly CRPon 02-19-2022 CRP [Mass/Vol] mg/L Normal <=1.0 [facility] Comment on above: Performed By: #### U LG, CRP #### [facility] [address] [place] [address] Dr. Soo Donnelly URIC ACID SERUMon 02-19-2022 Urate [Mass/Vol] 4.7 mg/dL Normal 2.5-6.2 [facility] Comment on above: Performed By: #### U LG, CRP #### [facility] [address] [place] [address] Dr. Soo Donnelly XR CSPINE MIN 4 [...] ABIGAIL GONSALVES Date: 2022-02-19 16:33 Normal [facility] XR HAND DEAN MIN 3Von [...] ABIGAIL GONSALVES Date: 2022-02-19 16:28 Normal [facility] ASYMPTOMATIC COVID-19 ANTIGE Non 12-04-2021 EUA Statement SEE BELOW Normal [facility] Comment on above: Result Comment: [...] sooner. Performed By: #### C VDAGA #### [facility] [address] [place] [address] Dr. Soo Donnelly SARS-CoV-2 (COVID-19) RNA NOLA+probe Ql (Unsp spec) Negative Normal NEGATIVE [facility] Comment on above: Result Comment: Nega tive results are presumptive. They do not preclude infection and should not be used as the sole basis for treatment decisions. Additional confirmatory testing by a molecular method should be considered. Performed By: #### C VDAGA #### [facility] [address] [place] [address] Dr. Soo Donnelly Covid-19 PCR (CVDTB)on SARS-CoV-2 (COVID-19) RNA NOLA+probe Ql (Unsp spec) Not detected Normal NOT DETECTED [facility] Comment on above: Result Comment: This test is not yet approved or cleared by the [place] FDA. When there are no FDA-approved or cleared tests available, and other criteria are met, FDA can make tests available under an emergency access mechanism called an Emergency Use Authorization (EUA). The EUA for this test is supported by the [place] of Health and Human Service's (HHS's) declaration [...] Performed By: #### U LG, CRP #### [facility] [address] [place] [address] Dr. Soo Donnelly Vital Signs Date Time Vital Sign Value Performing Clinician Facility 02-03-2025 08:24-0500 Body height 167.6 cm Tiesha Martinezgiselr SYSTEMS SUPPORT OFFICER Work Phone: [facility] 02-03-2025 08:24-0500 Body mass index (BMI) [Ratio] 29.7 kg/m2 Tiesha Vernonr SYSTEMS SUPPORT OFFICER Work Phone: [facility] 02-03-2025 08:24-0500 Body weight 83.46 kg Tiesha Vernonr SYSTEMS SUPPORT OFFICER Work Phone: [facility] 02-03-2025 08:24-0500 Diastolic blood pressure 76 mm[Hg] Tiesha Martinezmor SYSTEMS SUPPORT OFFICER Work Phone: [facility] 02-03-2025 08:24-0500 Heart rate 75 /min Tiesha Martinezgiselr SYSTEMS SUPPORT OFFICER Work Phone: [facility] 02-03-2025 08:24-0500 SaO2% (BldA) [Mass fraction] 97 % Tiesha Michellegiselr SYSTEMS SUPPORT OFFICER Work Phone: [facility] 02-03-2025 08:24-0500 Systolic blood pressure 128 mm[Hg] Tiesha Hughes SYSTEMS SUPPORT OFFICER Work Phone: [facility] 11-22-2024 13:21-0500 Body mass index (BMI) [Ratio] 28.66 kg/m2 Delgado Lidia DO Work Phone: [facility] 11-22-2024 13:21-0500 Body weight 83.01 kg Delgado Lidia DO Work Phone: [facility] 11-22-2024 13:21-0500 Diastolic blood pressure 80 mm[Hg] Delgado Lidia DO Work Phone: [facility] 11-22-2024 13:21-0500 Systolic blood pressure 128 mm[Hg] Delgado Lidia DO Work Phone: [facility] 11-01-2024 14:30-0500 Blood Pressure Location Mohshireen Baltazar [facility] 11-01-2024 14:30-0500 Diastolic blood pressure 74 mm[Hg] Mohamad Mouchli [facility] 11-01-2024 14:30-0500 Heart rate 93 /min Mohamad Delaney [facility] 11-01-2024 14:30-0500 Respiratory rate 16 /min Mohklausd Delaney [facility] 11-01-2024 14:30-0500 Systolic blood pressure 112 mm[Hg] Mohamad Mouchli [facility] 10-20-2024 11:08-0500 Body height 167.6 cm Pmh 1 [facility] 10-20-2024 11:08-0500 Body mass index (BMI) [Ratio] 28.41 kg/m2 Pmh 1 [facility] 10-20-2024 11:08-0500 Body weight 79.83 kg Pmh 1 [facility] 10-13-2024 14:20-0500 Body height 170.2 cm Becca Schwarz [employer] M[employer]ER MUSHROOM-HOT WORT SETTLER Work Phone: [facility] 10-13-2024 14:20-0500 Body mass index (BMI) [Ratio] 28.51 kg/m2 Becca Schwarz [employer] M[employer]ER MUSHROOM-HOT WORT SETTLER Work Phone: [facility] 10-13-2024 14:20-0500 Body weight 82.56 kg Becca Schwarz [employer] MIXER MUSHROOM-HOT WORT SETTLER Work Phone: [facility] 11-01-2022 15:19-0500 Blood Pressure Location Nicola NILL [facility] 11-01-2022 15:19-0500 Diastolic blood pressure 80 mm[Hg] Nicola NILL [facility] 11-01-2022 15:19-0500 Heart rate 72 /min Nicola NILL [facility] 11-01-2022 15:19-0500 Respiratory rate 16 /min Nicola NILL [facility] 11-01-2022 15:19-0500 Systolic blood pressure 118 mm[Hg] Nicola NILL [facility] 10-01-2022 16:30-0400 Body height 170.18 cm Clarice Scally Other [employer] Other 10-01-2022 16:30-0400 Body mass index (BMI) [Ratio] 32.84 kg/m2 Clarice Scally Other [facility] Other 10-01-2022 16:30-0400 Body weight 95.12 kg Clarice Scally Other [facility] Other 10-01-2022 16:30-0400 Diastolic blood pressure 82 mm[Hg] Clarice Scally Other [facility] Other 10-01-2022 16:30-0400 Respiratory rate 18 /min Clarice Hull Other [facility] Other 10-01-2022 16:30-0400 SaO2% (BldA) [Mass fraction] 97 % Claricesissy Carlsonly Other [facility] Other 10-01-2022 16:30-0400 Systolic blood pressure 116 mm[Hg] Clarice Carlsonly Other [facility] Other 08-28-2022 14:30-0400 Body height 170.18 cm Nahid Mccoy Other [facility] Other 08-28-2022 14:30-0400 Body mass index (BMI) [Ratio] 34.55 kg/m2 Nahid Mccoy Other [facility] Other 08-28-2022 14:30-0400 Body weight 100.06 kg Nahid Mccoy Other [facility] Other 08-28-2022 14:30-0400 Diastolic blood pressure 82 mm[Hg] Nahid Mccoy Other [facility] Other 08-28-2022 14:30-0400 Respiratory rate 18 /min Nahid Mccoy Other [facility] Other 08-28-2022 14:30-0400 SaO2% (BldA) [Mass fraction] 97 % Nahid Mccoy Other [facility] Other 08-28-2022 14:30-0400 Systolic blood pressure 121 mm[Hg] Nahid Mccoy Other [facility] [employer] Other Encounters Encounter Date Encounter Type Care Provider Facility Start: 08-13-2025 End: 08-13-2025 ambulatory Sami Mccarty [facility] Work Phone: Start: 08-13-2025 End: 08-13-2025 Departed Referred Sami Lawton MD -LAB [facility] Start: 02-07-2025 End: 02-07-2025 ambulatory Vinayak Baltazar Facility:[facility] Start: 02-03-2025 End: 02-03-2025 Bamboo flowsheet Tiesha Hughes SYSTEMS SUPPORT OFFICER Work Phone: [facility] Start: 02-03-2025 End: 02-03-2025 Bamboo flowsheet Tiesha Hughes SYSTEMS SUPPORT OFFICER Work Phone: [facility] Start: 02-03-2025 End: 02-03-2025 Office outpatient visit 25 minutes Tiesha Hughes SYSTEMS SUPPORT OFFICER Work Phone: [facility] Comment on above: LIZZETH (obstructive sle ep apnea) (Primary Dx); Hypoxia; Hypersomnia; Primary insomnia; Snoring Start: 02-03-2025 End: 02-03-2025 ambulatory TIESHA HUGHES Not Available Start: 02-01-2025 End: 02-01-2025 Patient encounter procedure [facility] [address] Work Phone: Start: 02-01-2025 End: 02-01-2025 ambulatory NON STAFF [facility] Work Phone: Start: 11-22-2024 End: 11-22-2024 Bamboo flowsheet Delgado Lidia DO Work Phone: [facility] Start: 11-22-2024 End: 11-30-2024 Bamboo flowsheet Delgado Lidia DO Work Phone: [facility] Start: 11-22-2024 End: 11-30-2024 Clinisync Result Encounter Deglado Murillo DO Work Phone: [facility] External Department [...] 11-15-2024 End: 11-15-2024 ambulatory Hebert Jara MD Facility:[facility] Start: 11-01-2024 End: 11-01-2024 ambulatory Vinayak Baltazar Facility:[facility] Start: 11-01-2024 End: 11-01-2024 Patient encounter procedure Vinayak Baltazar [facility] Start: 10-27-2024 End: 10-27-2024 Evaluation and management of inpatient TATYANA [facility] Start: 10-20-2024 End: 10-20-2024 ambulatory [facility] Pat Phone Call Provider 1 [facility] Start: 10-20-2024 End: 10-20-2024 ambulatory SAMI [facility] Start: 10-18-2024 End: 10-18-2024 ambulatory Hebert Jara MD Facility:[facility] Start: 10-14-2024 ambulatory Vinayak Baltazar Facilit y:[facility] Start: 10-13-2024 End: 10-13-2024 Office outpatient new 30 minutes Becca Schwarz [employer] M[employer]ER MUSHROOM-HOT WORT SETTLER Work Phone: [facility] General [facility] Comment on above: Positive fecal occul t blood test (Primary Dx); Rectal bleeding; Gastroesophageal reflux disease, unspecified whether esophagitis present Start: 10-13-2024 End: 10-13-2024 ambulatory [facility] Start: 10-04-2024 End: 10-04-2024 ambulatory Hebert Jara MD Facility:[facility] Start: 09-27-2024 End: 09-27-2024 Office outpatient visit 15 minutes Delgado Lidia DO Work Phone: [facility] Comment on above: Encounter [...] [facility]WS PT Start: 08-30-2024 End: 08-30-2024 Departed [facility] [address] Work Phone: Start: 08-30-2024 End: 08-30-2024 ambulatory NON STAFF [facility] Work Phone: Start: 04-05-2024 End: 04-05-2024 ambulatory DELGADO MURILLO Not Available Start: 03-15-2024 End: 03-15-2024 Emergency department patient visit Nicola Neel Neff Facility:[facility] Start: 08-15-2023 End: 08-15-2023 ambulatory NON STAFF [facility] Work Phone: Start: 08-15-2023 End: 08-15-2023 Departed Referred [facility] [address] Work Phone: Start: 12-05-[address] SAMI MCCARTY Facility :[facility] Start: 11-09-2022 End: 11-10-[address] DOCTOR STEIN Facility:[facility] Start: 11-01-2022 End: 11-01-2022 Patient encounter procedure Nicola BUCHANAN General Surgery Nill/Said [facility] Start: 10-29-2022 End: 10-29-2022 ambulatory Clarice Hull Other [employer] Other Start: 10-29-2022 Telephone encounter Clarice Hull [facility] Start: 10-14-2022 End: 10-14-2022 ambulatory Clarice Hull Other [employer] [facility] Other Start: 10-14-2022 Telephone encounter Clarice Hull [facility] Start: 10-01-2022 (FCCCWMNF/U) Weight Management f/u Clarice Hull On License Of [facility] Start: 10-01-2022 End: 10-02-[address] LUZ ELENA SAUCEDA [facility] Other Start: 09-19-2022 End: 09-19-2022 ambulatory Nahid Mccoy Other [employer] Other Start: 09-19-2022 Telephone encounter Nahid [facility] Start: 09-18-2022 End: 09-18-[address] LUZ ELENA SAUCEDA Facility:[facility] Start: 09-12-2022 End: 09-13-[address] ABIGAIL GONSALVES Facility:[facility] Start: 08-28-2022 End: 08-28-2022 ambulatory Nahid Mccoy Other [facility] [employer] Other Start: 08-28-2022 Nutrition therapy Nahid [facility] Start: 07-22-2022 Encounter for genera l adult medical examination without abnormal findings DR SAMI MCCARTY [facility] Start: 07-19-2022 End: 07-20-[address] [...] laboratory examination DR DELGADO MURILLO [facility] Start: 05-13-2022 End: 05-14-[address] DELGADO MURILLO Facility:[facility] Start: 05-13-2022 End: 05-14-2022 Encounter for preprocedural laboratory examination DR DELGADO MURILLO Facility:[facility] Start: 05-11-2022 Encounter for preprocedural cardiovascular examination DR DELGADO MURILLO [facility] Start: 05-08-2022 End: 05-09-[address] SAMI MCCARTY Facility:[facility] Start: 05-08-2022 End: 05-09-2022 Encounter for preprocedural cardiovascular examination DR SAMI MCCARTY Facility:[facility] Start: 05-02-2022 End: 05-02-[address] DELGADO MURILLO Facility:[facility] Start: 02-19-2022 End: 02-20-[address] SAMI MCCARTY Facility:[facility] Start: 12-04-2021 End: 12-04-[address] SAMI MCCARTY Facility:[facility] Procedures Date Procedure Procedure Detail Performing Clinician Start: 01-28-2025 Mammography Tiesha dillon SYSTEMS SUPPORT OFFICER Work Phone: Start: 11-22-2024 IGP,APTIMA HPV,AGE GDLN Delgado Murillo DO Work Phone: Start: 11-22-2024 Microscopic observat ion [Identifier] in Cervix by Cyto stain Tiesha Hughes SYSTEMS SUPPORT OFFICER Work Phone: Start: 10-27-2024 Colonoscopy Delgado burnette [...] on above: ABDOMEN X3 REPAIR FOR TMJ Nicloa BUCHANAN Plan of Treatment Date Care Activity Detail Author Start: 10-27-2034 Screening for malignant neoplasm of colon [facility] Start: 05-28-2031 Screening for malignant neoplasm of colon [facility] Start: 10-23-2028 Screening for malignant neoplasm of cervix [facility] Start: 11-22-2027 Screening for malignant neoplasm of cervix Pap Smear [facility] Start: 10-23-2026 Screening for malignant neoplasm of cervix Pap Smear [facility] Start: 05-28-2026 Screening for malignant neoplasm of colon Colonoscopy [facility] Start: 01-28-2026 Screening for malignant neoplasm of breast Mammogram [facility] Start: 10-13-2025 Adult BMI Screening Adult BMI Screening [facility] Start: 10-13-2025 Tobacco Screening Tobacco Screening [facility] Start: 08-13-2025 Bacteria identified in Urine by Culture Urine Culture [facility] Start: 08-13-2025 Urine culture [facility] Start: 03-24-2025 End: 03-24-2025 Patient encounter procedure 03/24/2025 10:00 AM EDT Office Visit [facility] [address] [address] [place] [id number] Tiesha Hughes, SYSTEMS SUPPORT OFFICER [address] [place], [place] [facility] Start: 02-03-2025 End: 02-03-2025 Patient encounter procedure 02/03/2025 8:20 AM EST Office Visit [facility] [address] [place] [address] Tiesha Hughes, SYSTEMS SUPPORT OFFICER [address] [place], [place] Arrived [facility] Comment on above: Arrived Start: 02-01-2025 Aldolase measurement [facility] Start: 02-01-2025 Hemolytic complement CH50 level [facility] Start: 02-01-2025 [facility] Start: 11-27-2024 Screening for malignant neoplasm [...] 10-27-2024 Admission to same day surgery center [facility] Comment on above: ESOPHAGOGASTRODUODENOSCOPY DIAGNOSTIC [4 3233 (CPT )] Start: 10-27-2024 End: 10-27-2024 Colonoscopy flx dx w/collj spec when pfrmd [facility] Start: 10-27-2024 End: 10-27-2024 Esophagogastroduodenoscopy transoral diagnostic [facility] Start: 10-27-2024 Subsequent hospital visit by physician [facility] Start: 10-26-2024 End: 10-26-2024 Patient encounter procedure 10/26/2024 1:45 PM EST Office Visit [facility] [address] [facility] [place] [address] Becca Schwarz, [employer] MEDIA MIXER MUSHROOM-HOT WORT SETTLER [address] [facility] [address] [facility] Start: 10-20-2024 End: 10-20-2024 ambulatory 10/20/2024 4:20 PM EST Support Visit [facility] Admit [address] [facility] [address] [facility] Start: 09-27-2024 End: 09-27-2024 Patient encounter procedure 09/27/2024 3:10 PM EDT Office Visit [facility] [address] [place] [address] Delgado Murillo, [address] [place] [address] Arrived [facility] Comment on above: Arrived Start: 09-09-2024 End: 09-09-2024 ambulatory 09/09/2024 4:00 PM EDT Evaluation [facility] [address] [place] [address] Carol Webb, PT [address] [place], [place] [id number] Arrived [facility] Comment on above: Arrived Start: 08-01-2024 COVID-19 Vaccine () COVID-19 Vaccine () [facility] Start: 08-01-2024 Influenza vaccination [facility] Start: 1995 DTaP,Tdap and Td Vaccines (1 - Tdap) DTaP,Tdap and Td Vaccines (1 - Tdap) [facility] Start: 1994 Adult BMI Follow Up Plan Adult BMI Follow Up Plan [facility] Start: 1988 Depression Screening Depression Screening [facility] Start: 1976 Screening for malignant neoplasm of colon [facility] Start: 1976 Tobacco Counseling Tobacco Counseling [facility] CHLAMYDIA TRACHOMATI S (GENITO/STI) CHLAMYDIA TRACHOMATIS (GENITO/STI) Lab Routine Vaginal spotting Ordered: 09/27/2024 [facility] Comment on above: Ordered: 09/27/2024 End: 10-13-2025 EGD / Colonoscopy EGD / Colonoscopy GI Routine Positive fecal occult blood test 1 Occurrences starting 10/13/2024 until 10/13/2025 [facility] Work Phone: Comment on above: 1 Occurrences starting 10/13/2024 until 10/13/2025 Neisseria gonorrhoea e DNA [Presence] in Unspecified specimen by NOLA with probe detection Neisseria gonorrhea DNA probe, direct Lab Routine Vaginal spotting Ordered: 09/27/2024 [facility] Comment on above: Ordered: 09/27/2024 SURESWAB(R) ADVANCED VAGINITIS PLUS, TMA SURESWAB(R) ADVANCED VAGINITIS PLUS, TMA Pathology and Cytology Routine Vaginal spotting Ordered: 09/27/2024 [facility] Work Phone: Comment on above: Ordered: 09/27/2024 THIN PREP TIS PAP AND HR HPV DNA THIN PREP TIS PAP AND HR HPV DNA Pathology and Cytology Routine Well woman exam with routine gynecological exam H/O: hysterectomy Ordered: 11/22/2024 [facility] Comment on above: Ordered: 11/22/2024 Immunizations Immunization Date Immunization Notes Care Provider Ramila narvaez 02-15-2018 SARS-CoV-2 mRNA (wzoracwjjqi-qqwf-evxb ose) vaccine Vinayak Baltazar [facility] 10-02-2004 influenza virus vaccine, unspecified formulation Becca Schwarz [employer] MIXER MUSHROOM-HOT WORT SETTLER Work Phone: [facility] NEGATED: Highlighted row has not occurred!11-01-2022 influenza virus vaccine, unspecified formulation Nicola BUCHANAN General Surgery Tow Payers Date Payer Category Payer Self-pay [id number] 2023 Private Health Insurance [employer] [id number] 2023 Unknown [id number] 1.13.693.2. [id number] 2014 [employer] [facility] [employer] [id number]. [id number] 1976 Unknown [id number] 216840.1.190445.3.579.2. 593 1976 Unknown [id number] 2.840.1.505261.3.579.2. 59 1976 Unknown [id number] 2.16.840.1.965785.3.579.2. 593 1976 Unknown [id number] 2.16.840.1.073011.3.579.2. 593 1976 Unknown [id number] 2.16.840.1.833583.3.579.2. 593 1976 Unknown [id number] 2.16.840.1.118720.3.579.2. 593 1976 Unknown [id number] 2.16.840.1.997860.3.579.2. 593 1976 Unknown [id number] 2.16.840.1.530327.3.579.2. 593 1976 Unknown [id number] 2.16.840.1.674966.3.579.2. 593 1976 Unknown [id number] 2.16.840.1.289279.3.579.2. 593 1976 Unknown [id number] 2.16.840.1.865878.3.579.2. 593 1976 Unknown [id number] 2.16.840.1.605193.3.579.2. 593 1976 Unknown [id number] 2.16.840.1.637217.3.579.2. 593 1976 Unknown [id number] 2.16.840.1.048580.3.579.2. 593 1976 Unknown [id number] 2.16.840.1.861965.3.579.2. 718 1976 Unknown [id number] 2.16.840.1.505068.3.579.2. 1286 1976 Unknown [id number] 2.16.840.1.684934.3.579.2. 1286 1976 Unknown [id number] 2.16.840.1.627943.3.579.2. 1286 1976 Unknown [id number] 2.16.840.1.610017.3.579.2. 196 1976 Unknown [id number] 2.16.840.1.094842.3.579.2. 1976 Unknown [id number] 2.16.840.1.596857.3.579.2. 1976 Unknown [id number] 2.16.840.1.450848.3.579.2. 196 1976 Unknown [id number] 2.16.840.1.528980.3.579.2. 1258 1976 Unknown [id number] 2.16.840.1.160224.3.579.2. 1258 1976 Unknown [id number] 2.16.840.1.350986.3.579.2. 1258 1976 Unknown [id number] 2.16.840.1.392449.3.579.2. 1258 1976 Unknown [id number] 2.16.840.1.289430.3.579.2. 1258 1976 Unknown [id number] 2.16.840.1.407742.3.579.2. 7 1976 Unknown [id number] 2.16.840.1.958279.3.579.2. 727 1959 Self-pay [id number] 1959 Unknown [id number] 2.16.840.1.115624.19 Unknown [id number] 2.16.840.1.617727.3.579.2. 531 Unknown [id number] 2.16.840.1.459361.3.579.2. 531 Unknown [id number] 2.16.840.1.813056.3.579.2. 531 Social History Date Type Detail Facility Unknown if ever smoked [employer] Other Start: 10-20-2023 End: 03-06-2025 Sex Assigned At [facility] Start: 11-01-2022 Tobacco smoking status Ex-smoker (finding) [facility] Tobacco smoking status Former sm okeless tobacco user, quit more than 30 days ago General Surgery [facility] Start: 1975 Sex Assigned At Female [facility] Start: 06-25-2023 Tobacco smoking status NHIS Smokes [...] o r e-cigarette use Smokeless Tobacco Use:. [facility] Tobacco smoking status No Smokin g Status Entered [facility] Start: 10-13-2024 End: 10-20-2024 Tobacco smoking status NHIS Occasional tobacco smoker [facility] History of tobacco use [facility] Start: 10-13-2024 End: 10-20-2024 Tobacco use and exposure Smokeless tobacco non-user [facility] Start: 10-13-2024 Alcoholic beverage intake Current non-drinker of alcohol (finding) [facility] Start: 07-06-2015 End: 02-01-2025 Sex Female (finding) [facility] Start: 12-06-2022 Gender identity Identifies as female gender (finding) [facility] Start: 12-06-2022 Sexual orientation Homosexual (finding) [facility] Start: 10-20-2024 Alcohol Comment rare [facility] Tobacco smoking stat [facility] Unknown if ever smoked [facility] Work Phone: Functional Status Date Assessment Result Facility 11-01-2024 Functional Status N/A [facility] 11-01-2022 Functional Status N/A [...] 2006 laparoscopy-operative POLYPECTOMY 2005 uterine polyp removal [place] LAP,CHOLECYSTECTOMY 2003 [place] LIGATION,FALLOPIAN TUBE W/ 2006 c-sec w/tubal [place] TMJ ARTHROSCOPY/SURGERY 1996 SHOULDER ARTHROSCOPY Left REVIEW [...] nursing note reviewed. Exam conducted with a cardiology consultant present. Vitals: Estimated body mass index is [...] scheduled/obtained. Nursing will send progesterone/testosterone cream to [facility] for patient. Orders Placed This Encounter Procedures Bilateral screening mammogram Follow Up: Patient is to return in one year for annual unless needed otherwise. Documented by Franci Sutton MA on behalf of: Delgado Murillo DO documented in this encounter [facility] 10-20-2024 Nurse Note Preoperative Education Checklist- General Surgery date: 10/27/24 Surgery time: 1045a Arrival time: 845a 1. Bring a photo ID and your insurance card with you the day of surgery. You will check in at the main lobby of the [facility]- registration desk is straight ahead as soon as you walk in. Tell them you are here for surgery. 2. If you have a Living Will/Durable Power of Technician Plant And Maintenance for Health Care that is not on [...] after you have bathed. 5. NO nail montserratian/acrylic on at least one finger. If you are having a hand, wrist or foot surgery then all nail montserratian and artificial/acrylic nails must be removed from [...] please call the Preadmission Testing office at [phone], Mon.-Fri. 7 a.m.-3 p.m. Leave a voicemail [...] Stop taking [facility]24 Miscellaneous Notes Preoperative Education Checklist- General Surgery date: 10/27/24 Surgery time: 1045a Arrival time: 845a 1. Bring a photo ID and your insurance card with you the day of surgery. You will check in at the main lobby of the [facility]- registration desk is straight ahead as soon as you walk in. Tell them you are here for surgery. 2. If you have a Living Will/Durable Power of Technician Plant And Maintenance for Health Care that is not on [...] after you have bathed. 5. NO nail montserratian/acrylic on at least one finger. If you are having a hand, wrist or foot surgery then all nail montserratian and artificial/acrylic nails must be removed from [...] please call the Preadmission Testing office at [phone], Mon.-Fri. 7 a.m.-3 p.m. Leave a voicemail [...] prior to procedure [facility] History of Presen t illness [...] 05/28/2021 Performed by Nicola Gee DO at [facility] COLONOSCOPY N/A 05/04/2018 Performed by Nicola Gee DO at [facility] CYST REMOVAL from uterus and ovaries x 5 EGD N/A 05/04/2018 Performed by Nicola Gee DO at [facility] EXPRESS ESOPHAGOGASTRODUODENOSCOPY N/A 05/28/2021 Performed by Nicola Gee DO at [facility] KNEE ARTHROSCOPY Left KNEE ARTHROSCOPY Right LAPAROSCOPIC [...] muscle spasms., Disp: , Rfl: peg 3350-sod sulf,snky-wwg-hfc 178.7-7.3-0.5 gram recon soln, Take 1 kit [...] patient/family/caregiver Referring and communicating with other health child daycare worker Positive fecal occult blood test [R19.5] MAYRA VIEIRA [facility] General Surgery [place] This note was created with the assistance of a speech recognition program. While intending to generate a timely document that accurately reflects the content of the visit, no guarantee can be provided that every grammatical or spelling mistake has been or will be identified or corrected. Thank you for your understanding. MAYRA Vieira 10/13/24 1513 documented in this encounter [facility] 09-27-2024 History of Presen t illness Narrative [...] 2006 laparoscopy-operative POLYPECTOMY 2005 uterine polyp removal VT LAP,CHOLECYSTECTOMY 2003 VT LIGATION,FALLOPIAN TUBE W/ 2005 c-sec w/tubal VT TMJ ARTHROSCOPY/SURGERY 1996 SHOULDER ARTHROSCOPY Left REVIEW [...] nursing note reviewed. Exam conducted with a cardiology consultant present. Vitals: Estimated body mass index is [...] No resulting surgeries. 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 Also notes poor balance with no diagnosed [...] below. Date: documented in this encounter [facility] 03-15-2024 Note Education Materials Cardiovascular Hypertension, Adult [...] Keep all follow-up visits. Medicines ? Take ncjp-hpa-tptmwij and prescription medicines only as told by [...] content not included)... [facility] 10-01-2022 Evaluation note Encounter Date Diagnosis Assessment [...] was counseling done by myself, Ann ANGLIN. [facility] Other 09-28-2022 Evaluation note* Encounter Date Diagnosis Assessment Notes Treatment Notes Treatment Clinical Notes Aug, Abnormal weight gain (ICD-10 - R63.5) Aug, Prediabetes (ICD-10 - R73.03) Aug, Mixed hyperlipidemia (ICD-10 - E78.2) Aug, Hypertension (ICD-10 - I10) Aug, Obstructive sleep apnea (ICD-10 - G47.33) Aug, GERD (gastroesophageal reflux disease) (ICD-10 - K21.9) Aug, Metabolic syndrome X (ICD-10 - E88.81) [facility] Other 06-16-2022 NoteDISCHARGE SUMMARY DISCHARGE DATE: 05/18/2022 [...] by: DR DELGADO MURILLO . 05/20/2022 07:51:00[facility] [id number] NoteThe [place], [place] NAME: HORACIO PUGH DATE OF : MEDICAL REC#: [id number] LOFT WORKER APPRENTICE: [id number] JESUS MEDICAL ADMIT DATE: 05/16/2022 11:05:00 ON AWAKE COUNSELOR DATE: 05/17/2022 21:20 DICTATING PHYSICIAN: DELGADO MURILLO DICTATION DATE: 05/16/2022 15:02 OP Note OPERATION DATE: 05/16/2022 PROCEDURE: Supracervical hysterectomy with left salpingo-oophorectomy with right salpingectomy and right ovarian cystotomy of approximately 3 cm cyst. SURGEON: Delgado Murillo D.O. RETAIL SALES TEAMMATE: SHUKRI Bailon URINE OUTPUT: Yellow and clear. [...] with good visualization of the bladder. An Rcik'Jim- O-Robbie retractor was placed into the patient's [...] by: DR DELGADO MURILLO . 05/23/2022 10:30:00[facility] [place] [facility] No data available for this section General Surgery [place] Evaluation + Plan note Future Appointments Appointment Date:02/07/2025 02:15:00 PM Scheduled Provider:Delaney BURK, Vinayak Jimenez Location:[facility] [place] Digestive Health Appointment Type:[facility] Follow Up Future Scheduled Tests Laboratory* Antimitochondrial Antibody, Quantitative 11/01/24 * Smooth Muscle Antibody Screen 11/01/24 * IgA, Quant. 11/01/24 * IgG, Quant. 11/01/24 * t-Transglutaminase IgA 11/01/24 * Comprehensive Metabolic Panel 11/01/24 * Comprehensive Metabolic Panel 12/02/24 * Comprehensive Metabolic Panel 01/02/25 [facility] Digestive Health evaluation noteNo InformationNoThe [employer] Other evaluation noteNo assessment information available [facility] Work Phone: evaluation note* Diagnosis Neck pain- [...] History TMJ surgery Hospitalization History see above [facility] Other History general Narrative - Reported* Type [...] ER-abd . [facility] [place] [facility] 09/18[facility]22 [facility] Other Hospital Discharge instructions No data available for this section General Surgery [place] InstructionsNot on filedocumented in this encounter [facility] SystemInstructionsNot on filedocumented in this encounter [facility] PO-MO SystemProgress note No data available for this section General Surgery [place] Reason for referral (narrative)No reason for referral information availableUniversity [facility] Work Phone: Summary Purpose Family History No [...] for Visit Chief Complaint WELLNESS Chief Complaint [facility] labs Chief Complaint Admit Date Unknown August 13, 2025 11:48am Additional Source Comments REASON FOR VISIT (unrecogniz ed section and content) Specialty Diagnoses / Procedures Referred By Teja t Referred To Contact Physical Therapy Diagnoses Other spondylosis, lumbar region Procedures [place] PHYS THERAPY EVALUATION Gómez, Selvon F, [place] [facility] [place] [address] [place] [address] Carol Webb, PT [address] [place] [address] Referral ID Status Reason Start Date Expiration Date V isits Requested Visits Authorized [id number] Authorized 09/02/2024 03/01/2025 40 40 Reason Comments [...] Primary Care Provider Active Dedrick Fuller , [facility] Attending Provider Active Team Status: Inactive Member Role Status Dates NON STAFF Primary Care Provider Active Start: August 30, 2024 End: August 30, 2024 Dedrick Fuller [facility] , [facility] Attending Provider Active Start: August 30, 2024 End: August 30, 2024 Electrode Cleaner Relationship Specialty Start Date End Date Sami Mccarty MD [address] [place] [address] PCP - General Family Medicine 06/26/23 Electrode Cleaner Relationship Specialty Start Date End Date Sami Mccarty MD [address] [place] [address] PCP - General Family Medicine 06/26/23 Electrode Cleaner Relationship Specialty Start Date End Date Sami Mccarty MD [address] [place] [address] PCP - General Family Medicine 06/26/23 Electrode Cleaner Relationship Specialty Start Date End Date Sami Mccarty MD [address] [place] [address] PCP - General Family Medicine 06/26/23 Electrode Cleaner Relationship Specialty Start Date End Date Sami Mccarty MD [address] [facility] [place] [address] PCP - General Family Medicine 06/26/23 Electrode Cleaner Relationship Specialty Start Date End Date Sami Mccarty MD PCP - General 05/04/18 Electrode Cleaner Relationship Specialty Start Date End Date Sami Mccarty MD PCP - General 05/04/18 Electrode Cleaner Relationship Specialty Start Date End Date Sami Mccarty MD [address] [facility] [place] [address] PCP - General Family Medicine 06/26/23 Tiesha Hughes NP [address] [place], [place] Nurse Practitioner Neurology 02/03/25 Shasha White DO [address] [place], [place] [id number] Referring Physician Neurology 02/03/25 Electrode Cleaner Relationship Specialty Start Date End Date Sami Mccarty MD [address] [facility] [place] [address] PCP - General Family Medicine 06/26/23 Tiesha Hughes NP [address] [place], [place] Nurse Practitioner Neurology 02/03/25 Shasha White DO [address] [place] [address] Referring Physician Neurology 02/03/25 Team Status: Inactive [...] and content) DATE CREATED AUTHOR 12/03/2022 [facility] DATE CREATED AUTHOR AUTHOR'S ORGANIZ ATION 03/21/2024 [facility] DATE CREATED AUTHOR AUTHOR'S ORGANIZ ATION 10/15/2024 [facility] DATE CREATED AUTHOR AUTHOR'S ORGANIZ ATION 11/12/2024 [facility] DATE CREATED AUTHOR AUTHOR'S ORGANIZ ATION 11/24/2024 [facility] DATE CREATED AUTHOR AUTHOR'S ORGANIZ ATION 02/05/2025 [facility] EPIC DATE CREATED AUTHOR AUTHOR'S ORGANIZ ATION 02/09/2025 [facility] DATE CREATED AUTHOR AUTHOR'S ORGANIZ ATION 08/15/2025 [facility] y[facility] Group Goals (unrecognized section and content) [...] BE BASED ON THE PRIMARY CLINICAL RECORDS. [employer] provides no warranty or guarantee of the accuracy or completeness of information in this document.
--- OUTSIDE RECORDS SUMMARY | 2025-09-14 16:49 | XMS_ITS | Clinical Summary ---
Author Organization [facility] Address [address] [facility] [place] [address] Care Team Providers Care Research Compliance Specialist Name Role Phone Varun Marinelli MD Primary Care Provider [phone] Tiesha Hughes IT ACCOUNT MANAGER Unavailable [phone] Shasha White DO Unavailable [phone] Allergies Active Allergy Reactions Criticality Noted Date Comments Albuterol Other 06/26/2023 convulsions NEED TO CUT DOWN ADRENALIN TO PREVENT SEIZURES Other Reaction(s): seizure Bee Venom 04/05/2024 Other Reaction(s): Nausea, Swelling Egg Protein-Containing Drug Products 04/05/2024 Other Reaction(s): Hives, Unknown Nitrofurantoin [...] Team Description 07/14/2025 Refill [facility] [address] [place] [address] [place] [address] Aura Murillo, H/O: hysterectomy from Last [...] [address] [address] Aura Murillo, [address] [place] [address] Health Maintenance Due Date Last Done Comments [...] PM EST Narrative 01/28/2025 1:50 [place] [address] Mammography Report Signed Patient: PAIGE KEATING MR#: [id number] : 1975 Acct:[id number] Age/Sex: 49 / F ADM Date: 01/28/25 Loc: MAMMO Attending Dr: Aura Murillo D.O. Ordering Physician: Aura Murillo D.O. Results: Date of Service: 01/28/25 Follow Up: Procedure(s): MM tomosynthesis screening BI Accession Number(s): [id number] cc: Aura Murillo D.O.; Varun Marinelli M.D. Patient Name: PAIGE KEATING MR#: [id number] : 1975 Exam Date: 01/28/2025 Ordering Doctor: [...] ovarian cancer at age 77. LOCATION: The [facility] BREAST COMPOSITION: There are scattered areas of [...] Signed By: 01/28/25 1350 DD/ 1349 TD/TT: Tactical/Mobile Watch Officer: Procedure Note Radiology, Radiologist, MD - 01/28/2025 [place] [address] Mammography Report Signed Patient: PAIGE KEATING NMR#: [id number] : 1975Acct:[id number] Age/Sex: 49 / FADM Date: 01/28/25 Loc: MAMMO Attending Dr: Aura Murillo D.O. Ordering Physician: Aura Murillo D.O.Results: Date of Service: 01/28/25Follow Up: Procedure(s): MM tomosynthesis screening BI Accession Number(s): [id number] cc: Aura Murillo D.O.; Varun Marinelli M.D. Patient Name: PAIGE KEATING MR#: [id number] : 1975 Exam Date: 01/28/2025 Ordering Doctor: DR AURA MURILLO . RADIOLOGY REPORT PROCEDURE: MM TOMOSYNTHESIS SCREENING BI COMPARISON: MM TOMOSYNTHESIS SCREENING BI, 11/26/2023. MG MAMM [id number] DEAN CAD, 09/12/2022. MG MAMM SCREEN 3D [...] with ovarian cancer atage 77. LOCATION: The [facility] BREAST COMPOSITION: There are scattered areas of [...] M.D. Signed By:01/28/25 1350 DD/ 1349 TD/TT: Tactical/Mobile Watch Officer: Aura Lidia DO [facility] Final Result * Pap Smear (11/22/2024 12:00 AM EST) Swab Cervical swab / Unknown Aura Lidia DO LAB CYTOLOGY ORDERABLES Final Re sult EXTERNAL LAB from Last 3 Months or Most Recently Relevant to Health Maintenance Insurance [employer] Care Teams Research Compliance Specialist Relationship Specialty Start Date End Date Varun Marinelli MD PCP - General Family Medicine 06/26/23 Tiesha Hughes NP Nurse Practitioner Neurology 02/03/25 Shasha White DO [address] [place] [address] Referring Physician Neurology 02/03/25
--- OUTSIDE RECORDS SUMMARY | 2025-09-14 16:50 | XMS_ITS | Encounter Summary ---
Author Organization [facility] Address [address] [place] [address] Care Team Providers Care Chiropractic Teacher Name Role Phone Varun Marinelli MD Primary Care Provider [phone] Tiesha Hughes HEALTH SERVICES COORDINATOR Unavailable [phone] Shasha White DO Unavailable [phone] Encounter Details Date Type Department Care Team (Late st Contact Info) Description 04/08/2024 Clinisync Result Encounter [facility] External Department Unsolicited Jessica Sanchez PA [address] [place] [address] [place] [address] Social History Tobacco Use Types Packs/Day Years [...] EDT Office Visit [facility] [place] [facility] [address] [address] Delgado Murillo DO [address] [facility] [place] [address] documented as of this encounter Procedures Procedure Name Priority Date/Time Associated Diagnosis Comments US PELVIS W/ TRANSVAGINAL 04/08/2024 5:35 PM EDT documented in this encounter Results * US PELVIS W/ TRANSVAGINAL (04/08/2024 5:35 PM EDT) Anatomical Region Laterality Modality Other 04/08/2024 5:35 PM EDT Narrative 04/08/2024 5:38 PM EDT [address] [address] Ultrasound Report Signed Patient: PAIGE KEATING MR#: [id number] : 1975 Acct:[id number] Age/Sex: 48 / F ADM Date: 04/07/24 Loc: US Attending Dr: Jessica Sanchez Ordering Physician: Jessica Sanchez Date of Service: 04/07/24 Procedure(s): US pelvis w/ transvaginal Accession Number(s): [id number] cc: Jessica Sanchez; Varun Marinelli M.D. The [address] [address] Patient Name: PAIGE KEATING MRN: [id number] date: 1975 Sex: F Assigned Patient Location: US Current Patient Location: LAB Accession/Order Number: [id number] Exam Date: 04/07/2024 18:10 Report Date: 04/08/2024 [...] Signed By: 04/08/24 1738 DD/ 1735 TD/TT: Retail Store Associate: Procedure Note Radiology, Radiologist, MD - 04/08/2024 The [place] [id number] Ultrasound Report Signed Patient: PAIGE KEATING NMR#: [id number] : 1975Acct:[id number] Age/Sex: 48 / FADM Date: 04/07/24 Loc: US Attending Dr: Jessica Sanchez Ordering Physician: Jessica Sanchez Date of Service: 04/07/24 Procedure(s): US pelvis w/ transvaginal Accession Number(s): [id number] cc: Jessica Sanchez; Varun Marinelli M.D. The [address] [address] Patient Name: PAIGE KEATING MRN: [id number] date: 1975 Sex: F Assigned Patient Location: US Current Patient Location: LAB Accession/Order Number: [id number] Exam Date: 04/07/2024 18:10 Report Date: 04/08/2024 [...] Mckeon M.D. Signed By:04/08/241737 DD/ 34 TD/TT: Retail Store Associate: us Jessica JUAREZ [facility] Final Result documented in this encounter Visit Diagnoses Not on filedocumented in this encounter Care Teams Chiropractic Teacher Relationship Specialty Start Date End Date Varun Marinelli MD PCP - General Family Medicine 06/26/23 Tiesha Hughes NP Nurse Practitioner Neurology 02/03/25 Shasha White DO [address] [place] [address] Referring Physician Neurology 02/03/25 documented as of this encounter
--- OUTSIDE RECORDS SUMMARY | 2025-09-14 16:50 | XMS_ITS | Encounter Summary ---
Author Organization [facility] Address [address] [facility] [place] [address] Care Team Providers Care Post Doctoral Researcher Name Role Phone Vraun Marinelli MD Primary Care Provider [phone] Tiesha Hughes BENCH ASSEMBLER Unavailable [phone] Shasha White DO Unavailable [phone] Encounter Details Date Type Department Care Team (Late st Contact Info) Description 10/07/2023 Clinisync Result Encounter NOMS External Department Unsolicited Aura Murillo DO [address] [place], [place] [id number] Social History Tobacco Use Types Packs/Day Years [...] Office Visit [facility] [address] [place] [address] Aura Murillo DO [address] [place], [place] [address] documented as of this encounter Procedures Procedure Name Priority Date/Time Associated Diagnosis Comments US PELVIS W/ TRANSVAGINAL 10/07/2023 7:23 AM EST documented in this encounter Results * US PELVIS W/ TRANSVAGINAL (10/07/2023 7:23 AM EST) Anatomical Region Laterality Modality Other 10/07/2023 7:23 AM EST Narrative 10/07/2023 7:23 [place] [address] Ultrasound Report Signed Patient: PAIGE KEATING MR#: [id number] : 1975 Acct:[id number] Age/Sex: 48 / F ADM Date: 10/04/23 Loc: US Attending Dr: Aura Murillo D.O. Ordering Physician: Aura Murillo D.O. Date of Service: 10/04/23 Procedure(s): US pelvis w/ transvaginal Accession Number(s): [id number] cc: Aura Murillo D.O.; Varun Marinelli M.D. [place] [address] Patient Name: PAIGE KEATING MRN: [id number] date: 1975 Sex: F Assigned Patient Location: US Current Patient Location: Accession/Order Number: [id number] Exam Date: 10/04/2023 09:07 Report Date: 10/07/2023 [...] M.D. Signed By: 10/07/23724 DD/ 2 TD/TT: Nodulizer: Procedure Note Radiology, Radiologist, - 10/07/2023 [place] [address] Ultrasound Report Signed Patient: PAIGE KEATING NMR#: [id number] : 1975Acct:[id number] Age/Sex: 48 / FADM Date: 10/04/23 Loc: US Attending Dr: Aura Murillo D.O. Ordering Physician: Aura Murillo D.O. Date of Service: 10/04/23 Procedure(s): US pelvis w/ transvaginal Accession Number(s): [id number] cc: Aura Murillo D.O.; Varun Marinelli M.D. The [place] [id number] Patient Name: PAIGE KEATING MRN: [id number] date: 1975 Sex: F Assigned Patient Location: US Current Patient Location: Accession/Order Number: [id number] Exam Date: 10/04/2023 09:07 Report Date: 10/07/2023 [...] Sheehan M.D. Signed By:10/07/23724 DD/ 2 TD/TT: Nodulizer: Aura Murillo DO [facility] Final Result documented in this encounter Visit Diagnoses Not on filedocumented in this encounter Care Teams Post Doctoral Researcher Relationship Specialty Start Date End Date Varun Marinelli MD PCP - General Family Medicine 06/26/23 Tiesha Hughes NP Nurse Practitioner Neurology 02/03/25 Shasha White DO [address] [place] [address] Referring Physician Neurology 02/03/25 documented as of this encounter
--- OUTSIDE RECORDS SUMMARY | 2025-09-14 16:50 | XMS_ITS | Encounter Summary ---
Author Organization [facility] Address [address] [place] [address] Care Team Providers Care Quality Systems Technician Name Role Phone Varun Marinelli MD Primary Care Provider [phone] Tiesha Hughes MENTAL HEALTH TECHNICIAN Unavailable [phone] Shasha White DO Unavailable [phone] Encounter Details Date Type Department Care Team (Late st Contact Info) Description 11/27/2023 Clinisync Result Encounter NOMS External Department Unsolicited Delgado Murillo DO [address] [facility] [address] [place] [address] Social History Tobacco Use Types Packs/Day Years [...] EDT Office Visit [facility] [address] [facility] [place] [address] Delgado Murillo DO [address] [facility] [place] [address] documented as of this encounter Procedures Procedure Name Priority Date/Time Associated Diagnosis Comments MM TOMOSYNTHESIS SCREENING BI 11/27/2023 7:45 AM EST documented in this encounter Results * MM TOMOSYNTHESIS SCREENING BI (11/27/2023 7:45 AM EST) Anatomical Region Laterality Modality Other 11/27/2023 7:45 AM EST Narrative 11/27/2023 7:46 AM EST [address] [address] Mammography Report Signed Patient: PAIGE KEATING MR#: [id number] : 1975 Acct:[id number] Age/Sex: 48 / F ADM Date: 11/26/23 Loc: MAMMO Attending Dr: Delgado Murillo D.O. Ordering Physician: Delgado Murillo D.O. Results: Date of Service: 11/26/23 Follow Up: Procedure(s): MM tomosynthesis screening BI Accession Number(s): [id number] cc: Delgado Murillo D.O.; Varun Marinelli M.D. Patient Name: PAIGE KEATING MR#: [id number] : 1975 Exam Date: 11/26/2023 Ordering Doctor: DR Delgado Murillo . RADIOLOGY REPORT PROCEDURE: MM TOMOSYNTHESIS SCREENING BI COMPARISON: MG MAMM SCREEN 3D EDAN CAD, 09/12/2022. MG MAMM SCREEN 3D DEAN [...] ovarian cancer at age 77. LOCATION: The [facility] BREAST COMPOSITION: Scattered areas fibroglandular density. FINDINGS: [...] M.D. Signed By: 11/27/23 0746 DD/ TD/TT: Youth Care Professional: Procedure Note Radiology, Radiologist, MD - 11/27/2023 [place] [address] Mammography Report Signed Patient: PAIGE KEATING NMR#: [id number] : 1975Acct:[id number] Age/Sex: 48 / FADM Date: 11/26/23 Loc: MAMMO Attending Dr: Delgado Murillo D.O. Ordering Physician: Delgado Murillo D.O.Results: Date of Service: 11/26/23Follow Up: Procedure(s): MM tomosynthesis screening BI Accession Number(s): [id number] cc: Delgado Murillo D.O.; Varun Marinelli M.D. Patient Name: PAIGE KEATING MR#: [id number] : 1975 Exam Date: 11/26/2023 Ordering Doctor: [...] with ovarian cancer atage 77. LOCATION: The [facility] BREAST COMPOSITION: Scattered areas fibroglandular density. FINDINGS: [...] Mckeon M.D. Signed By:11/27/23 0746 DD/ TD/TT: Youth Care Professional: Delgado Murillo DO [facility] Final Result documented in this encounter Visit Diagnoses Not on filedocumented in this encounter Care Teams Quality Systems Technician Relationship Specialty Start Date End Date Varun Marinelli MD PCP - General Family Medicine 06/26/23 Tiesha Hughes NP Nurse Practitioner Neurology 02/03/25 Shasha White DO [address] [place] [address] Referring Physician Neurology 02/03/25 documented as of this encounter
--- OUTSIDE RECORDS SUMMARY | 2025-09-14 16:50 | XMS_ITS | Patient Health Record ---
Author Organization The [facility] in [place] Address [address] [place] [address] Care Team Providers Care Building Inspection Engineer Name Role Phone Finesse Marinelli Primary Care [...] UROBILINOGEN Neg NITRITE Neg LEUKOCYTE ESTERASE Neg MAGNESIUM Reviewed date:08/14/2025 12:36:43 PM Interpretation: Performing Lab: Notes/Report: [facility] , Magnesium 1.9 1.8-2.4 mg/dL Performing Lab: see note ML - [facility] LB PHOSPHORUS Reviewed date:08/14/2025 12:36:43 PM Interpretation: Performing Lab: Notes/Report: [facility] , Phosphorus 4.2 2.6-4.7 mg/dL Performing Lab: see note ML - [facility] LB THYROID ANTIBODIES Reviewed date:08/15/2025 07:51:36 PM Interpretation: Performing Lab: Notes/Report: [facility] , Thyroid Peroxidase (TPO) Ab 13 0-34 IU/mL Thyroglobulin Antibody <1.0 0.0-0.9 IU/mL Thyroglobulin Antibody measured by [employer] Methodology It should be noted that the presence of thyroglobulin antibodies may not be pathogenic nor diagnostic, especially at very low levels. The assay tier and detonator has found that four percent of individuals without evidence of thyroid disease or autoimmunity will have positive TgAb levels up to 4 IU/mL. Performed at: [facility] [id number] Resolute Professional: Bowen Mcleod PhD, Phone: [phone] Performing Lab: see note - [facility] LB US renal bladder Reviewed date:08/23/2025 08:49:05 PM Interpretation: Performing Lab: Notes/Report: Source Facility: [place] [address] Ultrasound Report Signed Patient: PAIGE KEATING MR#: [id number] : 1975 Acct:[id number] Age/Sex: 50 / F ADM Date: 08/23/25 Loc: US Attending Dr: Sami Marinelli M.D. Ordering Physician: Sami Marinelli M.D. Date of Service: 08/23/25 Procedure(s): US renal bladder Accession Number(s): [id number] cc: Sami Marinelli M.D. 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 No contour deforming mass, shadowing stone or hydronephrosis. 1.8 cm cyst superior pole right kidney. The urinary bladder is partially distended with a volume of 330 ml. No shadowing stone or focal lesion. No significant postvoid residual. US/US renal bladder IMPRESSION: No acute findings.. STABLE APPEARING CYST SUPERIOR POLE RIGHT KIDNEY. Impression dictated by: Seymour Hopper Jr., D.O. 08/23/2025 7:58 PM Dictation Location: [place] [address] Electronically authenticated by: [id number] Y Date: 08/23/2025 19:58 Dictated By: Seymour Hopper M.D. Signed By: 08/23/252000 DD/ 57 TD/TT: Turbine Subassembler: GLYCOHEMOGLOBIN A1C Reviewed date:11/08/2024 08:11:38 PM Interpretation: Performing Lab: Notes/Report: [facility] , Glycohemoglobin A1C 5.7 4.5-6.2 % ADA RECOMMENDED LIMIT 4.0 - 6.0 ADA THERAPEUTIC TARGET < 7.0 ACTION SUGGESTED > 7.0 Estimated Average Glucose 117 Performing Lab: see note ML - [facility] IRON Reviewed date:11/08/2024 08:11:38 PM Interpretation: Performing Lab: Notes/Report: [facility] , Iron 51.0 50.0-170.0 ug/dL Performing Lab: see note ML - [facility] LIVER PROFILE Reviewed date:11/08/2024 08:11:38 PM Interpretation: Performing Lab: Notes/Report: [facility] , Bilirubin Total 0.8 0.2-1.0 mg/dL Bilirubin Direct 0.1 0.0-0.2 mg/dL Aspartate Amino Transferase 12 15-37 U/L Alanine Aminotransferase 27 14-59 U/L Alkaline Phosphatase 56 46-116 U/L Total Protein 7.2 6.4-8.2 g/dL Albumin Level 3.9 3.4-5.0 g/dL Globulin 3.3 Albumin Globulin Ratio 1.2 Performing Lab: see note ML - [facility] US renal bladder Reviewed date:09/14/2024 05:40:06 PM Interpretation: Performing Lab: Notes/Report: Source Facility: [facility] [place] [address] The [place] [id number] Ultrasound Report Signed Patient: PAIGE KEATING MR#: [id number] : 1975 Acct:[id number] Age/Sex: 49 / F ADM Date: 09/13/24 Loc: US Attending Dr: Sami Marinelli M.D. Ordering Physician: Sami Marinelli M.D. Date of Service: 09/13/24 Procedure(s): US renal bladder Accession Number(s): [id number] cc: Sami Marinelli M.D. [place] [address] Patient Name: PAIGE KEATING MRN: [id number] date: 1975 Sex: F Assigned Patient Location: US Current Patient Location: Accession/Order Number: [id number] Exam Date: 09/13/2024 16:40 Report Date: 09/14/2024 [...] By: Abigail Sheehan M.D. Signed By: 09/14/24 0747 DD/ 0745 TD/TT: Turbine Subassembler: US pelvis w/ transvaginal Reviewed date:09/14/2024 05:40:06 PM Interpretation: Performing Lab: Notes/Report: Source Facility: [place] [address] Ultrasound Report Signed Patient: PAIGE KEATING MR#: [id number] : 1975 Acct:[id number] Age/Sex: 49 / F ADM Date: 09/13/24 Loc: US Attending Dr: Sami Marinelli M.D. Ordering Physician: Sami Marinelli M.D. Date of Service: 09/13/24 Procedure(s): US pelvis w/ transvaginal Accession Number(s): [id number] cc: Sami Marinelli M.D. The [place] [address] Patient Name: PAIGE KEATING MRN: [id number] date: 1975 Sex: F Assigned Patient Location: US Current Patient Location: US Accession/Order Number: [id number] Exam Date: 09/13/2024 16:40 Report Date: 09/14/2024 [...] Signed By: 09/14/24 1410 DD/ 1408 TD/TT: Turbine Subassembler: CBC AUTO DIFF Reviewed date:10/07/2024 07:25:15 PM Interpretation: Performing Lab: Notes/Report: [facility] , White Blood Count 8.7 4.0-11.0 [...] Performing Lab: see note ML - [facility] FREE T3 Reviewed date:10/07/2024 07:25:15 PM Interpretation: Performing Lab: Notes/Report: [facility] , Free T3 3.36 2.18-3.98 pg/mL Performing Lab: see note ML - [facility] LB GLYCOHEMOGLOBIN A1C Reviewed date:10/07/2024 07:25:15 PM Interpretation: Performing Lab: Notes/Report: [facility] , Glycohemoglobin A1C 6.1 4.5-6.2 % ADA RECOMMENDED LIMIT 4.0 - 6.0 ADA THERAPEUTIC TARGET < 7.0 ACTION SUGGESTED > 7.0 Estimated Average Glucose 128 Performing Lab: see note - [facility] LB PROF 14(COMP METB) Reviewed date:10/07/2024 07:25:15 PM Interpretation: Performing Lab: Notes/Report: [facility] , Sodium 142 136-145 mmol/L Potassium [...] 1.1 Performing Lab: see note ML - [facility] T4 Reviewed date:10/07/2024 07:25:16 PM Interpretation: Performing Lab: Notes/Report: [facility] , T4 Thyroxine 10.40 4.80-13.90 ug/dL Performing Lab: see note - [facility] LB TSH Reviewed date:10/07/2024 07:25:16 PM Interpretation: Performing Lab: Notes/Report: [facility] , Thyroid Stimulating Hormone 2.291 0.358-3.740 uIU/mL Performing Lab: see note - [facility] LB Testosterone Reviewed date:10/09/2024 03:43:12 PM Interpretation: Performing Lab: Notes/Report: [facility] , Testosterone <3 4-50 ng/dL Performing Lab: see note LC - [facility] LB FSH Reviewed date:10/09/2024 03:43:12 PM Interpretation: Performing Lab: Notes/Report: [facility] , FSH 98.5 . mIU/mL Adult Female Range Follicular phase 3.5 - 12.5 Ovulation phase 4.7 - 21.5 Luteal phase 1.7 - 7.7 Postmenopausal 25.8 - 134.8 Performed at: [facility] [address] [id number] Resolute Professional: Bowen Mcleod PhD, Phone: [phone] Performing Lab: see note LC - [facility] LB Occult Blood* Reviewed date:10/09/2024 03:43:12 PM Interpretation: Performing Lab: Notes/Report: [facility] , Occult Blood Positive Performing Lab: see note ML - [facility] LB ROSS by IFA Reviewed date:10/17/2024 01:38:38 [...] Cytopenias, Linear Scleroderma, Antiphospholipid Syndrome Performed at: [facility] [id number] Resolute Professional: Bowen Mcleod PhD, Phone: [phone] Performing Lab: see note [facility] RHEUMATOID FACTOR Reviewed date:10/17/2024 01:38:38 PM Interpretation: Performing Lab: Notes/Report: [facility] , Rheumatoid Factor (RF) <10.0 <14.0 IU/mL Performing Lab: see note [facility] Testosterone Reviewed date:10/17/2024 01:38:38 PM Interpretation: Performing Lab: Notes/Report: [facility] , Testosterone <3 4-50 ng/dL Performed at: [address] [id number] Resolute Professional: Bowen Mcleod PhD, Phone: [phone] Performing Lab: see note [facility] LB Antistreptolysin O Ab Reviewed date:10/17/2024 01:38:38 PM Interpretation: Performing Lab: Notes/Report: [facility] , Antistreptolysin O Ab 52.6 0.0-200.0 IU/mL Performed at: [address] [id number] Resolute Professional: Bowen Mcleod PhD, Phone: [phone] Performing Lab: see note [facility] Acute Hepatitis Reviewed date:10/15/2024 06:25:47 AM [...] exists to indicate HCV infection. Performed at: [address] [id number] Resolute Professional: Bowen Mcleod PhD, Phone: [phone] Performing Lab: see note - [facility] LB US right upper quadrant Reviewed date:10/15/2024 06:25:47 AM Interpretation: Performing Lab: Notes/Report: Source Facility: [place] [address] [place] [address] Ultrasound Report Signed Patient: PAIGE KEATING MR#: [id number] : 1975 Acct:[id number] Age/Sex: 49 / F ADM Date: 10/13/24 Loc: US Attending Dr: Sami Marinelli M.D. Ordering Physician: Sami Marinelli M.D. Date of Service: 10/13/24 Procedure(s): US right upper quadrant Accession Number(s): [id number] cc: Sami Marinelli M.D. The [place] [id number] Patient Name: PAIGE KEATNIG MRN: [id number] date: 1975 Sex: F Assigned Patient Location: US Current Patient Location: Accession/Order Number: [id number] Exam Date: 10/13/2024 07:02 Report Date: 10/14/2024 [...] Dictated By: Aman Mckeon M.D. Signed By: 10/14/24 0445 DD/ 0443 TD/TT: Turbine Subassembler: LAB TESTING Reviewed date:11/10/2024 07:25:39 PM Interpretation: Performing Lab: Notes/Report: [id number] SLE PROFILE A [facility] , Miscellaneous Test COMMENT . Test Ordered: [id number] Systemic Lupus Profile A KETTLE FRY COOK OPERATOR Antibodies 0.2 AI CB Reference Range: 0.0-0.9 [...] 5 - 9 Positive >9 Performed at: [address] [id number] Resolute Professional: Bowen Mcleod PhD, Phone: [phone] Performing Lab: see note [facility] Immunoglobulin A, Qn, Serum Reviewed date:11/10/2024 07:25:39 PM Interpretation: Performing Lab: Notes/Report: [facility] , Immunoglobulin A, Qn 187 87-352 mg/dL Performed at: [address] [id number] Resolute Professional: Bowen Mcleod PhD, Phone: [phone] Performing Lab: see note [facility] Immunoglobulin G, Qn, Serum Reviewed date:11/10/2024 07:25:39 PM Interpretation: Performing Lab: Notes/Report: [facility] , Immunoglobulin G, Qn 268 983-6836 mg/dL Performing Lab: see note [facility] t-Transglutaminase (tTG) IgA Reviewed date:11/10/2024 07:25:39 PM Interpretation: Performing Lab: Notes/Report: [facility] , t-Transglutaminase (tTG) IgA <2 0-3 U/mL Negative 0 - 3 Weak Positive 4 - 10 Positive >10 Tissue Transglutaminase (tTG) has been identified as the endomysial antigen. Studies have demonstr- ated that endomysial IgA antibodies have over 99% specificity for gluten sensitive enteropathy. Performed at: [address] [id number] Resolute Professional: Bowen Mcleod PhD, Phone: [phone] Performing Lab: see note [facility] LAB TESTING Reviewed date:11/10/2024 07:25:39 PM Interpretation: Performing Lab: Notes/Report: [id number] SLE PROFILE B [facility] , Miscellaneous Test COMMENT . Test Ordered: [id number] Systemic Lupus Profile B Complement C4, Serum 25 mg/dL CB Reference Range: 12-38 Complement C3, Serum 144 mg/dL CB Reference Range: 82-167 Anti-DNA (DS) Ab Qn <1 IU/mL CB Reference Range: 0-9 Negative <5 Equivocal 5 - 9 Positive >9 Antichromatin Antibodies <0.2 AI CB Reference Range: 0.0-0.9 ROSS Direct Negative CB Reference Range: Negative Performed at: [address] [id number] Resolute Professional: Bowen Mcleod PhD, Phone: [phone] Performing Lab: see note [facility] LAB TESTING Reviewed date:11/10/2024 07:25:39 PM Interpretation: Performing Lab: Notes/Report: [id number] MITOCHONDRIAL ANTIBODY [facility] , Miscellaneous Test COMMENT . Test Ordered: [id number] Mitochondrial (M2) Antibody Mitochondrial (M2) Antibody <20.0 Units CB Reference Range: 0.0-20.0 Negative 0.0 - 20.0 Equivocal 20.1 - 24.9 Positive >24.9 Mitochondrial (M2) Antibodies are found in 90-96% of patients with primary biliary cirrhosis. Performed at: [address] [id number] Resolute Professional: Bowen Mcleod PhD, Phone: [phone] Performing Lab: see note [facility] LAB TESTING Reviewed date:11/10/2024 07:25:39 PM Interpretation: Performing Lab: Notes/Report: [id number] SMOOTH MUSCLE ANTIBODY [facility] , Miscellaneous Test COMMENT . Test Ordered: [id number] Actin (Smooth Muscle) Antibody Actin (Smooth Muscle) Antibody 5 Units CB Reference Range: 0-19 Negative 0 - 19 Weak positive 20 - 30 Moderate to strong positive >30 Actin Antibodies are found in 52-85% of patients with autoimmune hepatitis or chronic active hepatitis and in 22% of patients with primary biliary cirrhosis. Performed at: [address] [id number] Resolute Professional: Bowen Mcleod PhD, Phone: [phone] Performing Lab: see note [facility] MR cervical spine wo con Reviewed date:11/15/2024 02:07:00 PM Interpretation: Performing Lab: Notes/Report: Source Facility: [place] [address] [place] [address] Magnetic Resonance Report Signed Patient: PAIGE KEATING MR#: [id number] : 1975 Acct:[id number] Age/Sex: 49 / F ADM Date: 11/12/24 Loc: MRI Attending Dr: Kyle Streeter NP Ordering Physician: Kyle Streeter NP Date of Service: 11/12/24 Procedure(s): MR cervical spine wo con Accession Number(s): [id number] cc: Kyle Streeter NP; Sami Marinelli M.D. The [place] [address] Patient Name: PAIGE KEATING MRN: [id number] date: 1975 Sex: F Assigned Patient Location: MRI Current Patient Location: Accession/Order Number: [id number] Exam Date: 11/12/2024 13:48 Report Date: 11/15/2024 [...] M.D. Signed By: 11/15/24728 DD/ 5 TD/TT: Turbine Subassembler: ROSS by IFA Reviewed date:01/18/2025 09:15:56 PM [...] Linear Scleroderma, Antiphospholipid Syndrome Performed at: - [facility] [id number] Resolute Professional: Bowen Mcleod PhD, Phone: [phone] Performing Lab: see note - [facility] LB RHEUMATOID FACTOR Reviewed date:01/18/2025 09:16:06 PM Interpretation: Performing Lab: Notes/Report: [facility] , Rheumatoid Factor (RF) <10.0 <14.0 IU/mL Performing Lab: see note - [facility] LB Erythrocyte Sedimentation Ra te Reviewed date:01/17/2025 04:47:29 PM Interpretation: Performing Lab: Notes/Report: [facility] , Erythrocyte Sedimentation Rate 9 <=20 mm/hr Performing Lab: see note - [facility] LB Antistreptolysin O Ab Reviewed date:01/18/2025 09:16:06 PM Interpretation: Performing Lab: Notes/Report: [facility] , Antistreptolysin O Ab 56.3 0.0-200.0 IU/mL Performed at: - [facility] [address] [id number] Resolute Professional: Bowen Mcleod PhD, Phone: [phone] Performing Lab: see note - [facility] LB MM tomosynthesis screening B I Reviewed date:01/30/2025 12:35:04 PM Interpretation: Performing Lab: Notes/Report: Source Facility: [place] [address] Mammography Report Signed Patient: PAIGE KEATING MR#: [id number] : 1975 Acct:[id number] Age/Sex: 49 / F ADM Date: 01/28/25 Loc: MAMMO Attending Dr: Aura Murillo D.O. Ordering Physician: Aura Murillo D.O. Results: Date of Service: 01/28/25 Follow Up: Procedure(s): MM tomosynthesis screening BI Accession Number(s): [id number] cc: Aura Murillo D.O.; Sami Marinelli M.D. Patient Name: PAIGE KEATING MR#: [id number] : 1975 Exam Date: 01/28/2025 Ordering Doctor: [...] ovarian cancer at age 77. LOCATION: [facility] BREAST COMPOSITION: There are scattered areas [...] Signed By: 01/28/25 1350 DD/ 1349 TD/TT: Turbine Subassembler: thoracic spine wo con Reviewed date:01/30/2025 12:35:04 PM Interpretation: Performing Lab: Notes/Report: Source Facility: [place] [address] [place] [address] Magnetic Resonance Report Signed Patient: PAIGE KEATING MR#: [id number] : 1975 Acct:[id number] Age/Sex: 49 / F ADM Date: 01/28/25 Loc: MRI Attending Dr: Sami Marinelli M.D. Ordering Physician: Sami Marinelli M.D. Date of Service: 01/28/25 Procedure(s): MR thoracic spine wo con Accession Number(s): [id number] cc: Sami Marinelli M.D. The [place] [address] Patient Name: PAIGE KEATING MRN: [id number] date: 1975 Sex: F Assigned Patient Location: MRI Current Patient Location: MRI Accession/Order Number: [id number] Exam Date: 01/28/2025 15:57 Report Date: 01/28/2025 [...] Carlos Cat M.D.01/28/2025 4:11 PM Dictation Location: [place] [address] Electronically authenticated by: [id number] Y Date: 01/28/2025 16:11 Dictated By: J Carlos Cat M.D. Signed By: 01/28/254 DD/ 10 TD/TT: Turbine Subassembler: ROSS by IFA Reviewed date:08/15/2025 07:51:36 PM Interpretation: Performing Lab: Notes/Report: [facility] , Antinuclear Antibodies, IFA Negative . Negative <1:80 Borderline 1:80 Positive >1:80 ICAP nomenclature: AC-0 For more information about Hep-2 cell patterns use ANApatterns.org, the official website for the International Consensus on Antinuclear Antibody (ROSS) Patterns (ICAP). Performed at: [facility] [id number] Resolute Professional: Bowen Mcleod PhD, Phone: [phone] Performing Lab: see note - [facility] LB CBC AUTO DIFF Reviewed date:08/14/2025 12:36:43 PM Interpretation: Performing Lab: Notes/Report: [facility] , White Blood Count 6.7 4.0-11.0 [...] 3/uL Performing Lab: see note ML - [facility] LB CRP Reviewed date:08/14/2025 12:36:43 PM Interpretation: Performing Lab: Notes/Report: [facility] , C Reactive Protein <0.50 <=0.50 mg/dL Performing Lab: see note ML - [facility] LB FOLATE Reviewed date:08/14/2025 12:36:43 PM Interpretation: Performing Lab: Notes/Report: [facility] , Folate 14.40 8.60-58.90 ng/mL Performing Lab: see note ML - [facility] FREE T3 Reviewed date:08/14/2025 12:36:43 PM Interpretation: Performing Lab: Notes/Report: [facility] , Free T3 2.20 2.18-3.98 pg/mL Performing Lab: see note ML - [facility] GLYCOHEMOGLOBIN A1C Reviewed date:08/14/2025 12:36:43 PM Interpretation: Performing Lab: Notes/Report: [facility] , Glycohemoglobin A1C 5.4 4.5-6.2 % ADA RECOMMENDED LIMIT 4.0 - 6.0 ADA THERAPEUTIC TARGET < 7.0 ACTION SUGGESTED > 7.0 Estimated Average Glucose 108 Performing Lab: see note ML - [facility] INSULIN Reviewed date:08/14/2025 01:13:07 PM Interpretation: Performing Lab: Notes/Report: [facility] , Insulin 13.5 2.6-24.9 uIU/mL Performed at: [place] [facility] [id number] Resolute Professional: Bowen Mcleod PhD, Phone: [phone] Performing Lab: see note - [facility] LB IRON Reviewed date:08/14/2025 12:36:43 PM Interpretation: Performing Lab: Notes/Report: [facility] , Iron 71.0 50.0-170.0 ug/dL Performing Lab: see note ML - [facility] LB LIPID PROFILE Reviewed date:08/14/2025 12:36:43 PM Interpretation: Performing Lab: Notes/Report: [facility] , Triglycerides 204 <=150 mg/dL Cholesterol [...] RISK Performing Lab: see note ML - [facility] LB PROF 14(COMP METB) Reviewed date:08/14/2025 12:36:43 PM Interpretation: Performing Lab: Notes/Report: [facility] , Sodium 143 136-145 mmol/L Potassium [...] Performing Lab: see note ML - [facility] LB RHEUMATOID FACTOR Reviewed date:08/15/2025 07:51:36 PM Interpretation: Performing Lab: Notes/Report: [facility] , Rheumatoid Factor (RF) <10.0 <14.0 IU/mL Performing Lab: see note LC - [facility] LB T4 Reviewed date:08/14/2025 12:36:43 PM Interpretation: Performing Lab: Notes/Report: [facility] , T4 Thyroxine 7.80 4.80-13.90 ug/dL Performing Lab: see note ML - [facility] LB TSH Reviewed date:08/14/2025 12:36:43 PM Interpretation: Performing Lab: Notes/Report: [facility] , Thyroid Stimulating Hormone 0.906 0.358-3.740 uIU/mL Performing Lab: see note [facility] UA RANDOM W or MICROSCOPIC Reviewed date:08/14/2025 12:36:43 PM Interpretation: Performing Lab: Notes/Report: [facility] , Color Urine YELLOW YELLOW Clarity Urine CLEAR CLEAR Specific [place] Urine >=1.030 1.005-1.025 pH Urine 5.5 5.0-9.0 [...] Indicated ALREADY ORDERED Performing Lab: see note ML - [facility] LB URIC ACID SERUM Reviewed date:08/14/2025 12:36:43 PM Interpretation: Performing Lab: Notes/Report: [facility] , Uric Acid 5.0 2.6-6.0 mg/dL Performing Lab: see note ML - [facility] LB Testosterone Reviewed date:08/15/2025 07:51:36 PM Interpretation: Performing Lab: Notes/Report: [facility] , Testosterone <3 4-50 ng/dL Performed at: [address] [id number] Resolute Professional: Bowen Mcleod PhD, Phone: [phone] Performing Lab: see note [facility] LB Antistreptolysin O Ab Reviewed date:08/15/2025 07:51:36 PM Interpretation: Performing Lab: Notes/Report: [facility] , Antistreptolysin O Ab 57.0 0.0-200.0 IU/mL Performed at: [address] [id number] Resolute Professional: Bowen Mcleod PhD, Phone: [phone] Performing Lab: see note [facility] LB Vitamin D, 25-Hydroxy Reviewed date:08/15/2025 07:51:36 PM Interpretation: Performing Lab: Notes/Report: [facility] , Vitamin D, 25-Hydroxy 31.2 30.0-100.0 ng/mL Vitamin D deficiency has been defined by the [place] of Medicine and an Endocrine Society practice guideline as a level of serum 25-OH vitamin D less than 20 ng/mL (1,2). The Endocrine Society went on to further define vitamin D insufficiency as a level between 21 and 29 ng/mL (2). 1. IOM ([place] of Medicine). 2010. Dietary reference intakes for calcium and D. [place]: The National Academies Press. 2. Benita MF, Kyra NC, Hal RIVERA, et al. Evaluation, treatment, and prevention of vitamin D deficiency: an Endocrine Society clinical practice guideline. JCEM. 2010; 96(7):1911-30. Performed at: [address] [id number] Resolute Professional: Bowen Mcleod PhD, Phone: [phone] Performing Lab: see note [facility] LB Vitamin B12 Reviewed date:08/14/2025 12:36:43 PM Interpretation: Performing Lab: Notes/Report: [facility] , Vitamin B12 840 036-0738 pg/mL Performed at: [address] [id number] Resolute Professional: Bowen Mcleod PhD, Phone: [phone] Performing Lab: see note [facility] U[facility] - [facility] Reviewed date:08/15/2025 01:10:10 PM Interpretation: Performing Lab: Notes/Report: [facility] , Urine Culture - [facility] See Below For Report Urine Culture - [facility] >100,000 colonies/ml mixed Urine Culture - [facility] bacterial skin contaminants Urine Culture - [facility] >100,000 colonies/ml mixed Urine Culture - [facility] 2 Days Urine Culture - [facility] >100,000 colonies/ml mixed Urine Culture - [facility] Urine Culture - [facility] >100,000 colonies/ml mixed Urine Culture - [facility] Testing performed a [facility] Urine Culture - [facility] >100,000 colonies/ml mixed Urine Culture - [facility] [address] [place] [address] Urine Culture - [facility] >100,000 colonies/ml mixed Performing Lab: see note ML - [facility] LB Immunoglobulins A/G/M, Qn, S er Reviewed date:08/14/2025 01:13:07 PM Interpretation: Performing Lab: Notes/Report: [facility] , Immunoglobulin G, Qn, Serum 4182 097-3553 mg/dL Immunoglobulin A, Qn, Serum 225 87-352 mg/dL Immunoglobulin M, Qn, Serum 93 26-217 mg/dL Performed at: - [facility] [address] [id number] Resolute Professional: Bowen Mcleod PhD, Phone: [phone] Performing Lab: see note - [facility] LB US pelvis transvaginal Reviewed date:08/23/2025 08:49:05 PM Interpretation: Performing Lab: Notes/Report: Source Facility: [place] [address] Ultrasound Report Signed Patient: PAIGE KEATING MR#: [id number] : 1975 Acct:[id number] Age/Sex: 50 / F ADM Date: 08/23/25 Loc: US Attending Dr: Sami Marinelli M.D. Ordering Physician: Sami Marinelli M.D. Date of Service: 08/23/25 Procedure(s): US pelvis transvaginal Accession Number(s): [id number] cc: Sami Marinelli M.D. The [address] [address] Patient Name: PAIGE KEATING MRN: [id number] date: 1975 Sex: F Assigned Patient Location: US Current Patient Location: US Accession/Order Number: [id number] Exam Date: 08/23/2025 15:00 Report Date: 08/23/2025 20:00 At the request of: SAMI MARINELLI MD Procedure: US pelvis transvaginal Pelvic ultrasound. Reason for exam: Vaginal bleeding. Comparison: none Technique: Transvaginal imaging of the uterus and ovaries was also obtained. Additional spectral Doppler analysis of the ovaries was also obtained. Findings: Patient is status post cervical sparing hysterectomy. Residual cervix appears grossly unremarkable. No free fluid is seen. Left ovary has been removed. Right ovary is not visualized. No pelvic mass or cyst. US/US pelvis transvaginal Impression: No suspicious findings. Impression dictated by: Christiane Tang Jr.OSally 08/23/2025 8:00 PM Dictation Location: [place] [address] Electronically authenticated by: [id number] Y Date: 08/23/2025 20:00 Dictated By: Seymour Hopper M.D. Signed By: 08/23/252001 DD/ 99 TD/TT: Turbine Subassembler: URIC ACID SERUM Reviewed date:01/17/2025 04:47:29 PM Interpretation: Performing Lab: Notes/Report: [facility] , Uric Acid 4.5 2.6-6.0 mg/dL Performing Lab: see note ML - [facility] LB CRP Reviewed date:01/17/2025 04:47:29 PM Interpretation: Performing Lab: Notes/Report: [facility] , C Reactive Protein <0.50 <=0.50 mg/dL Performing Lab: see note ML - [facility] LB IGP,Aptima HPV,Age Gdln Reviewed date:12/01/2024 03:16:58 PM Interpretation: Performing Lab: Notes/Report: SPATULA-ALONE VAGINA [facility] , Age Gdln ACOG Testing Note . TESTS RESULT FLAG UNITS REF RANGE LAB Clinician Provided Cytology Information Source.............Anaid oquendo No. of containers..01 ThinPrep Vial Age Sherley SANCHEZ Mya... 30 01 FLAG LEGEND: L-Low Normal,H-High Normal,LL-Alert Low,HH-Alert High <-Panic Low,>-Panic High,A-Abnormal,AA-Criti marta Abnormal Performed at: 01 =G [address] [place] [address] Britta Wang MD, IGP, Aptima HPV, rfx 16/18,45 Note . TESTS RESULT FLAG UNITS REF RANGE LAB DIAGNOSIS: 02 NEGATIVE FOR INTRAEPITHELIAL LESION OR MALIGNANCY. FUNGAL ORGANISMS MORPHOLOGICALLY CONSISTENT WITH VIVIANE SPECIES ARE PRESENT. Specimen adequacy: 02 Satisfactory for evaluation. Endocervical and/or squamous metaplastic cells (endocervical component) are present. Performed by: Roberto Saenz, Special Needs Babysitter ([facility]) . 02 Note: Note [...] Low,>-Panic High,A-Abnormal,AA-Criti marta Abnormal Performed at: 02 [facility] [place] [address] Kristian Waterman MD, 03 WB [facility] [address] [address] Britta Wang MD, HPV Aptima Negative Negative This nucleic acid amplification test detects fourteen high- risk HPV types (16,18,31,33,35,39,45,51 ,52,56,58,59,66,68) without differentiation. Performed at: =G - [facility] [address] [id number] Resolute Professional: Britta Wang MD, Phone: [phone] Performed at: [facility] [address] [address] [place], [place] [id number] Resolute Professional: Kristian Waterman MD, Phone: [phone] Performing Lab: see note - [facility] LB URIC ACID SERUM Reviewed date:10/13/2024 07:34:20 PM Interpretation: Performing Lab: Notes/Report: [facility] , Uric Acid 6.4 2.6-6.0 mg/dL Performing Lab: see note ML - [facility] LB PROF 14(COMP METB) Reviewed date:10/13/2024 07:34:20 PM Interpretation: Performing Lab: Notes/Report: [facility] , Sodium 140 136-145 mmol/L Potassium [...] Lab: see note ML - [facility] CRP Reviewed date:10/13/2024 07:34:20 PM Interpretation: Performing Lab: Notes/Report: [facility] , C Reactive Protein <0.50 <=0.50 mg/dL Performing Lab: see note ML - [facility] INSULIN Reviewed date:10/09/2024 03:43:12 PM Interpretation: Performing Lab: Notes/Report: [facility] , Insulin 16.1 2.6-24.9 uIU/mL Performed at: - [facility] [address] [id number] Resolute Professional: Bowen Mcleod PhD, Phone: [phone] Performing Lab: see note - [facility] LB CBC AUTO DIFF Reviewed date:01/17/2025 04:47:29 PM Interpretation: Performing Lab: Notes/Report: [facility] , White Blood Count 6.5 4.0-11.0 [...] Performing Lab: see note ML - [facility] LB Reason For Referral Reason Had last colonoscopy with you in 2018 Diagnosis 1 Positive occult stoo l blood test (R19.5) Referral Organization [facility] Referring Provider First Name Finesse Referring Provider Last Name [facility] Referred Provider Nicola Gee Referred Provider Specialty General Surg rita Referral Priority Routine Diagnosis 1 Elevated liver enzym es (R74.8) Referral Organization [facility] Referring Provider First Name Finesse Referring Provider Last Name rob Referring Provider [facility] Referred Provider Vinayak Baltazar Referred Provider Specialty Gastroentero logy Referral Priority Routine Diagnosis 1 Hand arthritis (M12. 9) Diagnosis 2 Other specified arth ritis, right hand (M13.841) Referral Organization [facility] Referring Provider First Name Finesse Referring Provider Last Name Yves [facility] Referred Provider Nathan Vidal Referred Provider Specialty Rheumatology Referral Priority Routine Diagnosis 1 Other specified arth ritis, right hand (M13.841) Referral Organization [facility] Referring Provider First Name Finesse Referring Provider Last Name Yves Referring Provider [facility] urbano Referred Provider Rosalind Lara Referred Provider Specialty Orthopedic S urgery Referral Priority Routine Medications Medication SIG (Take, Route, Frequency, Duration) Notes Start Date End Date Status Adderall 30 MG 1 tablet Orally q am ; Duration: 30 days 09/06/2025 Active metFORMIN HCl 500 MG 1 tablet with a viridiana l Orally BID; Duration: 90 days 10/13/2024 Active Adderall 10 MG 1 tablet Orally Q afternoon 09/06/2025 Active Lisinopril 10 MG 1 tablet Orally Once a day; Duration: 90 days Active tiZANidine HCl 2 MG 1 tablet at bedtime as needed Orally Once a day; Duration: 30 days 07/04/2025 Active ALPRAZolam 0.25 MG 1 tablet Orally once daily; Duration: 7 days As needed F41.9 08/05/2025 Active Mupirocin 2 % 1 application Boot Repairer ally Twice a day; Duration: 5 days 03/23/2025 Active Adderall XR 30 MG 1 capsule in the mor meagan Orally Once a day; Duration: 30 days 02/09/2025 Active Metoprolol Tartrate 75 mg TAKE 1 TABLET TWICE A DAY WITH FOOD Active Lasix 20 MG 1 tablet Orally Once a day; Duration: 90 days PRN 04/08/2024 Active Testosterone 10 MG/ACT (2%) 1 pump to skin in the morning to the thighs Transdermal QOD; Duration: 30 days 10/19/2024 Active Terbinafine HCl 250 MG 1 tablet Orally O nce a day; Duration: 30 days 03/23/2025 Active Lidocaine HCl 3 % as directed External ly 3 times a day 09/14/2025 Active Gabapentin 300 MG 1 capsule Orally at HS; Duration: 30 days M48.04 02/09/2025 Active Gabapentin 100 MG 1 capsule Orally in AM and 1 PO at 3pm; Duration: 30 days M48.04 06/01/2025 Active Semaglutide 0.6 mg/0.5 mL Semaglutide 0.6 mg/0.5 mL 0.5 mL Subcutaneous Once Weekly; Duration: 30 days 08/09/2024 Active Cipro 500 MG 1 tablet Orally BID; Duration: 10 days 03/01/2025 Active Omeprazole 40 MG 1 capsule Orally twi ce a day; Duration: 90 days Active Baclofen 5 MG 1-2 tablet as needed Orally at HS PRN 09/02/2024 Active Nabumetone 750 MG as directed Orally BID Active Fluconazole 100 MG 1 tablet Orally janett y; Duration: 10 days 09/12/2025 Active Potassium Chloride ER 10 MEQ 1 tablet with food Orally Twice a day; Duration: 90 days PRN 04/08/2024 Active Estradiol 0.5 MG 1 tablet Orally Once a day; Duration: 30 days 10/07/2024 Active Ondansetron 4 MG 1 tablet on the tong ue and allow to dissolve Orally Once a day; Duration: 30 days 09/03/2024 Active Social History Tobacco Use: Social History [...] Notes Problem Obstructive sleep apnea syndrome (disorder) (40474303) Obstructive sleep apnea (adult) (pediatric) (G47.33) Active confirmed Problem Primary insomnia (9540047) Primary insomnia (F51.01) Active confirmed Problem Allergic arthritis o f the hand (755030867) Other specified arthritis, right hand (M13.841) Active confirmed Problem Degeneration of lumbar intervertebral disc (73929853) Other intervertebral disc degeneration, lumbar region (M51.36) Active confirmed Problem Dysuria (17358938) Dysuria (R30.0) Active confi rmed Problem Fatigue (01647727) Fatigue (R53.83) Active conf irmed Problem Hypertension (84683806) Hypertension (I10) Active confirmed Problem Gastroesophageal reflux disease (944015631) GERD (gastroesophageal reflux disease) (K21.9) Active confirmed Problem Anxiety (59319147) Anxiety (F41.9) Active confi rmed Problem Neck pain (99528369) Neck pain (M54.2) Active c onfirmed Problem Thoracic spinal stenosis (25169533) Thoracic spinal stenosis (M48.04) Active confirmed Problem Arthralgia (74305752) Arthralgia (M25.50) Active confirmed Problem Well adult (960473685) Well adult (Z00.00) Active confirmed Problem Pain in limb (59696641) Right hand pain (M79.641) Active confirmed Problem Abnormal vaginal bleeding (010566903) DUB (dysfunctional uterine bleeding) (N93.8) Active confirmed Problem Narcolepsy (37272035) Narcolepsy (G47.419) Activ e confirmed Problem Plantar fasciitis (869596188) Plantar fasciitis (M72.2) Active confirmed Problem Hypotestosteronemia (0869831817989) Hypotestosteronemia (E29.1) Active confirmed Problem Diverticular disease of colon (363796099) Diverticula of colon (K57.30) Active confirmed Problem Vaginal bleeding (353650847) Vaginal bleeding (N93.9) Active confirmed Problem 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) Active confirmed Problem Visual disturbance (90053371) Vision changes (H53.9) Active confirmed Problem Arthropathy (753286217) Hand arthritis (M12.9) Active confirmed Problem Snoring (18462487) Snorings (R06.83) Active con firmed Problem Irritable bowel syndrome (96754118) Irritable bowel syndrome (IBS) (K58.9) Active confirmed Problem Arthralgia of the pelvic region and thigh (786349682) Hip pain, acute (M25.559) Active confirmed Problem hypercholesterolemia (disorder) (59465293) Hypercholesteremia (E78.00) Active confirmed Problem Prediabetes (563503964) Pre-diabetes (R73.03) Active confirmed Problem Cyst of right ovary (12225543902774481) Ovarian cyst, right (N83.201) Active confirmed Problem Arthritis of right hand (219820025977027) Arthritis of right hand (M19.041) Active confirmed Problem Low testosterone (288055648) Low testosterone (E34.9) Active confirmed Problem COVID-19 (920690933) COVID-19 (U07.1) Active co nfirmed Vital Signs Blood pressure diastolic 82 mm Hg 09/14/2025 Height 67 in 09/14/2025 Blood pressure systolic 122 mm Hg 09/14/2025 Weight 181.8 lbs 09/14/2025 BMI 28.47 kg/m2 09/14/2025 Encounters Encounter Location Date Provider Diagnosis [facility] [address] [place] [address] 08/23/2025 Finesse Hoy [facility] [address] [place] [address] 09/06/2025 Finesse Hoy Other specified arth ritis, right hand M13.841 and Jaw pain R68.84 [facility] [address] [place] [address] 09/12/2025 Finesse Vargasy [facility] [address] [place] [address] 08/11/2025 Finesse Hoy Other specified arth ritis, right hand M13.841 [facility] [address] [place] [facility] [address] 08/14/2025 Finesse Hoy Well adult Z00.00 ; Jaw pain R68.84 and Other specified arthritis, right hand M13.841 [facility] [address] [place] [address] 08/15/2025 Finesse Samy [facility] [address] [place] [place] [address] 08/15/2025 Finesse Hoy [facility] [address] [place] [address] 08/15/2025 Finesse Hoy [facility] [address] [place] [place] [address] 08/22/2025 Finesse Hoy Vaginal bleeding N93 .9 [facility] [address] [place] [address] 03/28/2025 Finesse Hoy Jaw pain R68.84 [facility] [address] [facility] [place] [address] 04/13/2025 Finesse Hoy [facility] [address] [place] [address] 04/27/2025 Finesse Hoy Jaw pain R68.84 and Other specified arthritis, right hand M13.841 [facility] [address] [facility] [place] [address] 06/01/2025 Finesse Hoy Jaw pain R68.84 and Other specified arthritis, right hand M13.841 [facility] [address] [facility] [place] [address] 07/04/2025 Finesse Hoy Other specified arth ritis, right hand M13.841 and Jaw pain R68.84 [facility] [address] [facility] [place] [address] 08/05/2025 Finesse Hoy Jaw pain R68.84 ; Ot her specified arthritis, right hand M13.841 and Hypertension I10 [facility] [address] [facility] [place] [address] 02/08/2025 Finesse Hoy Hypertension I10 and Other specified arthritis, right hand M13.841 [facility] [address] [facility] [place] [address] 03/01/2025 Finesse Hoy [facility] [address] [facility] [place] [address] 03/07/2025 Finesse Hoy Other specified arth ritis, right hand M13.841 [facility] [address] [facility] [place] [address] 03/16/2025 Finesse Hoy Kidney cysts Q61.00 [facility] [address] [facility] [place] [address] 03/25/2025 Finesse Hoy Jaw pain R68.84 [facility] [address] [facility] [place] [address] 03/28/2025 Finesse Hoy Jaw pain R68.84 [facility] [address] [facility] [place] [address] 12/23/2024 Finesse Hoy [facility] [address] [place] [address] 01/10/2025 Finesse Hoy Hypertension I10 [facility] [address] [place] [address] 01/17/2025 Finesse Vargasy [facility] [address] [place] [address] 01/18/2025 Finesse Yves [facility] [address] [place] [address] 01/27/2025 Finesse Hoy Other specified arth ritis, right hand M13.841 [facility] [address] [place] [address] 01/30/2025 Finesse Hoy Other specified arth ritis, right hand M13.841 [facility] [address] [place] [address] 11/10/2024 Finesse Marinelli [facility] [address] [facility] [place] [place] [address] 11/12/2024 Finesse Hoy Hypertension I10 [facility] [address] [place] [address] 11/15/2024 Finesse Marinelli [facility] [address] [place] [address] 11/15/2024 Finesse Yves [facility] [address] [place] [address] 11/19/2024 Finesse Hoy Hypertension I10 [facility] [address] [place] [address] 11/26/2024 Finesse Hoy Hypertension I10 [facility] [address] [place] [address] 10/18/[address] [facility] [address] [place] [address] 10/19/2024 Finesse Marinelli [facility] [address] [place] [address] 10/25/[address] [facility] [address] [place] [address] 11/02/2024 Finesse Hoy Hypertension I10 ; F atigue R53.83 and Elevated liver enzymes R74.8 [facility] [address] [place] [address] 11/08/2024 Finesse Hoy Hypertension I10 [facility] [address] [place] [address] 11/10/2024 Finesse Hoy [facility] [address] [place] [place] [address] 10/07/2024 Finesse Hoy Elevated liver enzym es R74.8 and Fatigue R53.83 [facility] [address] [place] [address] 10/09/2024 Finesse Hoy Positive occult stoo l blood test R19.5 and Fatigue R53.83 [facility] [address] [place] [address] 10/11/2024 Finesse Hoy [facility] [address] [place] [place] [address] 10/13/2024 Finesse Hoy Elevated liver enzym es R74.8 [facility] [address] [place] [place] [address] 10/15/2024 Finesse Hoy [facility] [address] [place] [address] 10/17/2024 Finesse Samy [facility] [address] [place] [place] [address] 09/14/2024 Finesse Hoy [facility] [address] [place] [address] 10/06/2024 Finesse Hoy [facility] [address] [place] [place] [address] 10/06/2024 Finesse Hoy [facility] [address] [place] [address] 10/07/2024 Finesse Hoy [facility] [address] [place] [address] 10/18/2024 Finesse Hoy Hypertension I10 ; G ERD (gastroesophageal reflux disease) K21.9 ; Low testosterone E34.9 and Arthralgia M25.[address] [address] 01/14/2025 Finesse Hoy Other specified arth ritis, right hand M13.841 ; Arthralgia M25.50 and Thoracic spinal stenosis M48.[address] [address] 03/23/2025 Finesse Hoy Jaw pain R68.84 and Pre-diabetes R73.[address] [address] 08/11/2025 Finesse Hoy Hypercholesteremia E 78.00 ; Arthritis of right hand M19.041 ; Low testosterone E34.9 and Well adult Z00.[address] [address] 10/06/2024 Finesse Hoy Hypertension I10 ; Pre-diabetes R73.03 and DUB (dysfunctional uterine bleeding) N93.[address] [address] 09/14/2025 Finesse Hoy Dysuria R30.0 Assessments Encounter Date Diagnosis (ICD Code) Assessment Notes Treatment Notes Treatment Clinical Notes Section Notes 10/06/2024 Hypertension (ICD-10 - I10) 10/06/2024 Pre-diabetes (ICD-10 - R73.03) 10/06/2024 DUB (dysfunctional uterine bleeding) (ICD-10 - N93.8) 10/18/2024 Hypertension (ICD-10 - I10) 10/18/2024 GERD (gastroesophage al reflux disease) (ICD-10 - K21.9) 09/14/2025 Dysuria (ICD-10 - R30.0) 10/07/2024 Elevated liver enzym es (ICD-10 - [...] arthritis, right hand (ICD-10 - M13.841) 08/11/2025 Other specified arthritis, right hand (ICD-10 - M13.841) 08/14/2025 Well adult (ICD-10 - Z00.00) 08/05/2025 Jaw pain (ICD-10 - R68.84) 08/22/2025 Vaginal bleeding (ICD-10 - N93.9) 09/06/2025 Other specified arthritis, right hand (ICD-10 - M13.841) 09/06/2025 Jaw pain (ICD-10 - R68.84) 08/05/2025 Other specified arthritis, right hand (ICD-10 - M13.841) 08/14/2025 Jaw pain (ICD-10 - R68.84) 07/04/2025 Jaw pain (ICD-10 - R68.84) 06/01/2025 [...] M25.50) 08/11/2025 Well adult (ICD-10 - Z00.00) 08/14/2025 Other specified arthritis, right hand (ICD-10 - M13.841) 08/05/2025 Hypertension (ICD-10 - I10) Plan Of Treatment Pending Test Test Name Order Date CMP (COMPLETE METABOLIC PANEL) 3 CMP (COMPLETE METABOLIC PANEL) 4 HEMOGLOBIN A1C (GLYCO) 08/11/2025 HEMOGLOBIN A1C (GLYCO) 10/06/2024 IRON, TOTAL 08/11/2025 LIPID PANEL (CHOL/TRIG/HDL/LDL) 08/11/20 25 CBC WITH DIFF 10/06/2024 CBC WITH DIFF 09/10/2023 IGG, IGA and IGM, TOTAL (IMMUNOGLOBULINS ) 08/11/2025 VITAMIN D, 25 LEVEL (TOTAL) 08/11/2025 US Transvaginal Pelvic 08/22/2025 Urinalysis Microscopic 08/11/2025 Urinalysis Microscopic 09/14/2025 RHEUMATOID PANEL 09/14/2025 RHEUMATOID PANEL 01/14/2025 RHEUMATOID PANEL 08/11/2025 RHEUMATOID PANEL 11/02/2024 RHEUMATOID PANEL 10/09/2024 LUPUS (12) PANEL 11/02/2024 LUPUS (12) PANEL 06/13/2023 Insulin Level 10/06/2024 Insulin Level 08/11/2025 ACUTE HEPATITIS PANEL 10/07/2024 CMP - Comprehensive Metabolic Panel 11/0 05/2024 TESTOSTERONE 10/07/2024 STOOL OCCULT BLOOD 08/11/2025 STOOL OCCULT BLOOD 10/06/2024 US Pelvis Complete 09/06/2024 CBC AUTO DIFF 09/02/2024 CELIAC ANTIBODIES PROFILE 09/14/2025 CULTURE URINE 09/14/2025 CULTURE URINE 08/11/2025 FSH 10/06/2024 GLYCOHEMOGLOBIN A1C 08/18/2023 GLYCOHEMOGLOBIN A1C 09/02/2024 LIPID PROFILE 09/02/2024 PROF 14(COMP METB) 09/02/2024 RHEUMATOID FACTOR 06/13/2023 SED RATE WESTERGREN 09/14/2025 SED RATE WESTERGREN 01/14/2025 TESTOSTERONE, TOTAL 10/06/2024 TESTOSTERONE, TOTAL 08/11/2025 THYROID PROFILE WITH TSH 09/14/2025 THYROID PROFILE WITH TSH 09/02/2024 TOTAL PROTEIN SERUM 11/02/2024 VIT B12 AND FOLATE 08/11/2025 MRI TSPINE WO CON 01/14/2025 US KIDNEYS 03/16/2025 US KIDNEYS BLADDER 09/06/2024 THYROID PANEL (T4/TSH/FREE T3) THYROID PANEL (T4/TSH/FREE T3) ROSS w/Reflex 11/02/2024 US abdomen limited 10/07/2024 CMP (COMP MET LOVE) w/eGFR CKD-EPI 2024 CBC WITH DIFF 08/11/2025 Insurance Providers Payer Name Payer Address Payer Phone Subscriber Number Group Number Insured Name Patient Relationship to Insured Coverage Start Date Coverage End Date MMO [employer] [address] [place] [address] [id number] Paige Keating Self - patient is the [...] cyst, right N83.201 Surgical History Surgery Date(Month/Year) Right Sacroiliac joint injection- Dr Alexander becerra 11/15/24 EGD- Dr Guillermo Nelson 10/02/24 Bilateral L3-4 transforaminal epidural s teroid inj 10/04/24 colonoscopy 2020 hysterectomy Cholecystectomy Endometrial Polyp removal Tubal Ligation Right index finger steroid injection 2024
[2025-09-14 17:10] LABS: Glucose Urine UA NEGATIVE (NEGATIVE)
[2025-09-14 17:45] LABS: Cast Seen? NONE SEEN #/LPF (NONE SEEN); Crystals Seen? None Seen #/HPF (None Seen); Urine Culture Indicated ALREADY ORDERED
[2025-09-14 18:11] LABS: Thyroid Stimulating Hormone 1.500 uIU/mL (0.358-3.740); Uric Acid 5.9 mg/dL (2.6-6.0)
[2025-09-16 18:08] LABS: Antinuclear Antibodies, IFA Negative (.); Deamidated Gliadin Abs, IgA 7 units (0-19); Deamidated Gliadin Abs, IgG 4 units (0-19); Immunoglobulin A, Qn, Serum 222 mg/dL (87-352)
== END 2025-09-14 16:42 | disposition home or self-care (01) ==
PROVIDERS: PCP Family Medicine; Visit Provider Family Medicine
DX: R30.0 Dysuria (principal)
CPT/HCPCS: 36415; 81001; 82784; 84439; 84443; 84550; 85652; 86038; 86060; 86140; 86231; 86258; 86364; 86431; 87086; 87088

== ENCOUNTER 2025-09-16 13:30 | Emergency (ER) | payer OTHER, SELFPAY ==
--- OUTSIDE RECORDS SUMMARY | 2024-03-29 05:10 | XMS_ITS ---
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 Role Phone Varun Marinelli Primary Care Provider Johnny Edwige [place] Unavailable [phone] Aman Cifuentes Unavailable [phone] REASON FOR VISIT RIGHT HAND PAIN Encounters Encounter Location Date Provider Diagnosis [facility] Office [address] [place] [address] [address] [place] [address] 03/29/2024 Aman Cifuentes Right hand pain M79.641 Assessments Encounter Date Diagnosis (ICD Code) Assessment Notes Treatment Notes Treatment Clinical Notes Section Notes 03/29/2024 Right hand pain (ICD-10 - M79.641) Plan Of Treatment Pending Test Test Name Order Date SCC- HAND 3 VIEW RIGHT [id number] 03/29/2024 Progress Notes * HORACIO KEATING NDOB: [birth year] (50 yo F)Acc No.[id number]:03/29/2024 Patient: HORACIO GOLD Tommie Provider: Kaelyn Cifuentes MD :1975 A ge:48 Y S ex:Female Date:03/29/2024 Address:[address] [place] [address] [place], [id number] Pcp:Varun Marinelli Subjective: * Chief Complaints: * 1 . RIGHT HAND PAIN. * Medical History: Objective: * Vitals: Assessment: * Assessment: 1. R ight hand pain - M79.641 Plan: * Treatment: Forms: * Images: * Electronic signature of Omari Cifuentes MD on 09/16/2025 at 02:11 PM EDT Sign off status: Pending * Provider: Kaelyn Cifuentes MD Date: 0 03/29/2024 Generated for Darin tang/Tay/Maria Teresa on: 1 02:11 PM EDT
--- OUTSIDE RECORDS SUMMARY | 2024-07-02 05:20 | XMS_ITS ---
Author Organization [facility] Address [address] [place] [address] Care Team Providers Care Placement Coordinator Name Role Phone Varun Marinelli Primary Care Provider Edwige Strauss [phone] REASON FOR VISIT lumbar pain Encounters Encounter Location Date Provider Diagnosis [facility] [address] [place] [address] [place] [address] 07/02/2024 Edwige Magaña Lumbar pain M54.50 Assessments Encounter Date Diagnosis (ICD Code) Assessment Notes Treatment Notes Treatment Clinical Notes Section Notes 07/02/2024 Lumbar pain (ICD-10 - M54.50) Plan Of Treatment Pending Test Test Name Order Date Lumbar spine, 4v flex ext - 12389 2023 Progress Notes * KEATINGHORACIO NDOB: [birth year] (50 yo F)Acc No.[id number]:07/02/2024 Patient: KEISHA GOLDLeonardo Reilly Provider: Kaelyn Ward MD, PhD :1975 A ge:49 Y S ex:Female Date:07/02/2024 Address:[address] [place] [address] [id number] Pcp:Varun Marinelli Subjective: * Chief Complaints: * 1 . Lumbar pain. * Medical History: Objective: * Vitals: Assessment: * Assessment: 1. L umbar pain - M54.50 (Primary) Plan: * Treatment: * Procedure Codes: 7 2109 X-ray Lumbar Spine, 5 view complete Forms: * Images: * Electronic signature of Anastasia Magaña MD, PHD on 09/16/2025 at 02:10 PM EDT Sign off status: Pending * Provider: Kaelyn Ward MD, PhD Date: 0 07/02/2024 Generated for Darin tang/Tay/Maria Teresa on: 1 02:10 PM EDT
--- OUTSIDE RECORDS SUMMARY | 2024-08-06 04:40 | XMS_ITS ---
Author Organization [facility] Address [address] [place] [address] Care Team Providers Care Nut Sorter Name Role Phone Varun Marinelli Primary Care Provider Edwige Strauss [phone] REASON FOR VISIT lumbar pain NEEDS TO RESCHEDULE Encounters Encounter Location Date Provider Diagnosis [facility] [address] [place] [address] [place] [address] 08/06/2024 Edwige Magaña Plan Of Treatment No Information Progress Notes * KEISHA KEATINGY NDOB: [birth year] (50 yo F)Acc No.[id number]:08/06/2024 Patient: HORACIO GOLD Provider: Kaelyn Ward MD, PhD :1975 A ge:49 Y S ex:Female Date:08/06/2024 Address:[address] [place], [place] [id number] Pcp:Varun Marinelli Subjective: * Chief Complaints: * 1 . lumbar pain NEEDS TO RESCHEDULE. * Medical History: Objective: * Vitals: Assessment: Plan: * Treatment: Forms: * Images: * Electronic signature of Anastasia Magaña MD, PHD on 09/16/2025 at 02:12 PM EDT Sign off status: Pending * Provider: Kaelyn Ward MD, PhD Date: 0 08/06/2024 Generated for Darin tang/Tay/Maria Teresa on: 1 02:12 PM EDT
--- OUTSIDE RECORDS SUMMARY | 2024-08-20 05:20 | XMS_ITS ---
Author Organization [facility] Address [address] [place] [address] Care Team Providers Care Gasket Supervisor Name Role Phone Varun Marinelli Primary Care Provider Edwige Strauss [phone] REASON FOR VISIT lumbar pain NEEDS TO RESCHEDULE Encounters Encounter Location Date Provider Diagnosis [facility] [address] [place] [address] [place] [address] 08/20/2024 Edwige Magaña Plan Of Treatment No Information Progress Notes * KEISHA KEATINGY NDOB: [birth year] (50 yo F)Acc No.[id number]:08/20/2024 Patient: HORACIO GOLD Provider: Kaelyn Ward MD, PhD :1975 A ge:49 Y S ex:Female Date:08/20/2024 Address:[address] [place], [place] [address], [id number] Pcp:Varun Marinelli Subjective: * Chief Complaints: * 1 . lumbar pain NEEDS TO RESCHEDULE. * Medical History: Objective: * Vitals: Assessment: Plan: * Treatment: Forms: * Images: * Electronic signature of Anastasia Magaña MD, PHD on 09/16/2025 at 02:12 PM EDT Sign off status: Pending * Provider: Kaelyn Ward MD, PhD Date: 0 08/20/2024 Generated for Darin tang/Tay/Maria Teresa on: 1 02:12 PM EDT
--- OUTSIDE RECORDS SUMMARY | 2025-02-04 05:00 | XMS_ITS ---
Author Organization [facility] Address [address] [place] [address] Care Team Providers Care Ceo [employer] Name Role Phone Varun Marinelli Primary Care Provider Edwige Strauss [phone] REASON FOR VISIT THORACIC SPINE Medications Medication SIG (Take, Route, Frequency, Duration) Notes Start Date End Date Status Ozempic Active doxepin Active indomethacin Active Zanaflex Active Adderall Active lisinopril Active Lopressor Active Xanax Active Aspirin Active Prilosec Active Encounters Encounter Location Date Provider Diagnosis [facility] Office [address] [place] [address] [place] [address] 02/04/2025 Edwige Magaña Plan Of Treatment No Information Progress Notes * KEATING, HORACIO NDOB: [birth year] (50 yo F)Acc No.[id number]:02/04/2025 Patient: KEISHA GOLDLeonardo Reilly Provider: Kaelyn Ward MD, PhD :1975 A ge:49 Y S ex:Female Date:02/04/2025 Address:[address] [place], [place] [address], [id number] Pcp:Varun Marinelli Subjective: * Chief Complaints: * [...] Anastasia on St Juliana MD, PHD on 09/16/2025 at 02:11 PM EDT Sign off status: Pending * Provider: Kaelyn Ward MD, PhD Date: 0 02/04/2025 Generated for Darin tang/Tay/Maria Teresa on: 1 02:11 PM EDT
--- OUTSIDE RECORDS SUMMARY | 2025-09-14 12:00 | XMS_ITS ---
Author Organization [facility] in Post Address [address] [place] [address] Care Team Providers Care Java Integration Developer Name Role Phone Finesse Marinelli Primary Care Provider Allergies Allergen (clinical drug ingredient) Drug/Non Drug Allergy documented on EMR Reaction Allergy Type Onset Date Status nitrofurantoin, macrocrystals / nitrofurantoin, monohydrate Macrobid neck swelling Drug Allergy Active albuterol Albuterol seizure Drug Allergy Active Results Component Value Reference Range Notes UA DIP NONAUTO WO MICRO (810 02) - IN OFFICE Reviewed date:09/14/2025 04:15:21 PM Interpretation: Performing Lab: Notes/Report: COLOR Yellow CLARITY Clear GLUCOSE Neg BILIRUBIN Neg KETONE + SPECIFIC GRAVITY 1.001 BLOOD + PH 6.5 PROTEIN Neg UROBILINOGEN Neg NITRITE Neg LEUKOCYTE ESTERASE Neg REASON FOR VISIT rash spreading itchy Medications Medication SIG (Take, Route, Frequency, Duration) Notes Start Date End Date Status tiZANidine HCl 2 MG 1 tablet at bedtime as needed Orally Once a day; Duration: 30 days 07/04/2025 Active Testosterone 10 MG/ACT (2%) 1 pump to skin in the morning to the thighs Transdermal QOD; Duration: 30 days 10/19/2024 Active Terbinafine HCl 250 MG 1 tablet Orally O nce a day; Duration: 30 days 03/23/2025 Active Semaglutide 0.6 mg/0.5 mL Semaglutide 0.6 mg/0.5 mL 0.5 mL Subcutaneous Once Weekly; Duration: 30 days 08/09/2024 Active Potassium Chloride ER 10 MEQ 1 tablet with food Orally Twice a day; Duration: 90 days PRN 04/08/2024 Active Mupirocin 2 % 1 application Network Security Engineer ally Twice a day; Duration: 5 days 03/23/2025 Active Lidocaine HCl 3 % as directed External ly 3 times a day 09/14/2025 Active Omeprazole 40 MG 1 capsule Orally twi ce a day; Duration: 90 days Active Nabumetone 750 MG as directed Orally BID Active Ondansetron 4 MG 1 tablet on the tong ue and allow to dissolve Orally Once a day; Duration: 30 days 09/03/2024 Active metFORMIN HCl 500 MG 1 tablet with a viridiana l Orally BID; Duration: 90 days 10/13/2024 Active Lisinopril 10 MG 1 tablet Orally Once a day; Duration: 90 days Active Metoprolol Tartrate 75 mg TAKE 1 TABLET TWICE A DAY WITH FOOD Active Lasix 20 MG 1 tablet Orally Once a day; Duration: 90 days PRN 04/08/2024 Active Gabapentin 300 MG 1 capsule Orally at HS; Duration: 30 days M48.04 02/09/2025 Active Gabapentin 100 MG 1 capsule Orally in AM and 1 PO at 3pm; Duration: 30 days M48.04 06/01/2025 Active Cipro 500 MG 1 tablet Orally BID; Duration: 10 days 03/01/2025 Active Baclofen 5 MG 1-2 tablet as needed Orally at HS PRN 09/02/2024 Active Fluconazole 100 MG 1 tablet Orally janett y; Duration: 10 days 09/12/2025 Active Estradiol 0.5 MG 1 tablet Orally Once a day; Duration: 30 days 10/07/2024 Active Adderall 30 MG 1 tablet Orally q am ; Duration: 30 days 09/06/2025 Active Adderall 10 MG 1 tablet Orally Q afternoon 09/06/2025 Active ALPRAZolam 0.25 MG 1 tablet Orally once daily; Duration: 7 days As needed F41.9 08/05/2025 Active Adderall XR 30 MG 1 capsule in the mor meagan Orally Once a day; Duration: 30 days 02/09/2025 Active Social History Tobacco Use: Social History Observation Description Date Details (start date - stop date) Former Smoker NA - 12/31/2009 Tobacco Use/Smoking Question Answer Notes Patient is a former smoker When did you stop smoking? 12/31/2009 How long has it been since you last smoked? > 10 years AUDIT-C (Standard) Question Answer Notes Did you have a drink containing alcohol in the p ast year? No Points 0 Interpretation Negative Problems Problem Type SNOMED Code ICD Code Onset Dates Problem Status W/U Status Risk Notes Problem Dysuria (22030515) Dysuria (R30.0) Active confirmed Vital Signs Weight 181.8 lbs 09/14/2025 Height 67 in 09/14/2025 Blood pressure systolic 122 mm Hg 09/14/20 25 Blood pressure diastolic 82 mm Hg 025 BMI 28.47 kg/m2 09/14/2025 Encounters Encounter Location Date Provider Diagnosis [facility] [address] [place] [address] 09/14/2025 Finesse Marinelli Dysuria R30.0 Assessments Encounter Date Diagnosis (ICD Code) Assessment Notes Treatment Notes Treatment Clinical Notes Section Notes 09/14/2025 Dysuria (ICD-10 - R30.0) Plan Of Treatment Medication Medication Name Sig Start Date Stop Date Notes Lidocaine HCl 3 % as directed Externally 3 times a day Pending Test Test Name Order Date Urinalysis Microscopic 09/14/2025 RHEUMATOID PANEL 09/14/2025 CELIAC ANTIBODIES PROFILE 09/14/2025 CULTURE URINE 09/14/2025 SED RATE WESTERGREN 09/14/2025 THYROID PROFILE WITH TSH 09/14/2025 Progress Notes * Paige KEATING NDOB: [birth year] (50 yo F)Acc No.[id number]:09/14/2025 UNLOCKED PROGRESS NOTE Progress Note Patient: Paige GOLD N Provider: Paris Marinelli ([facility])MD :1975 A ge:50 Y S ex:Female Date:09/14/2025 Address:[address] [place], [place] [address], [place] Check In:03:30 PM ESTCheck O ut:04:25 PM EST Subjective: * Chief Complaints: * 1 . Rash spreading itchy. * HPI: G eneral: Rasis spreading - may be more yeast infetrions Hx of bacterial vaginosis - but doesnt feel like that. * Medical History: H ypertension, Vision changes, [...] transforaminal epidural steroid inj 10/04/24, EGD- Dr Guillermo Nelson 10/02/24, Right Sacroiliac joint injection- Dr Jara 11/15/24, Right index finger steroid injection 01/2025. * Hospitalization/Major Diagno stic Procedure: D enies Past Hospitalization. * Family History: F ather: 68 yrs, type II diabetes, diagnosed with Diabetes. M other: 68 yrs, hyperthyroidism, Lung cancer, diagnosed with Cancer. S ister(s): alive. D alexandr(s): alive. 1 sister(s) . 2 daughter(s) - healthy. . * Social History: T obacco Use: T obacco Use/Smoking P atient is a f ormer smoker W hen did you stop smoking? 0 12/31/2009 H ow long has it been since you last smoked??> 10 years D rug/Alcohol: A DAKOTA-C (Standard) D id you have a drink containing alcohol in the past year? N o P oints 0 I nterpretation N egative * Medications: T aking Adderall(Amphetamine-Dextroamphetamine) 10 MG [...] tablet Orally Once a day , Taking Fluconazole 100 MG Tablet 1 tablet Orally daily , Taking Gabapentin 100 MG Capsule 1 capsule Orally in AM and 1 PO at 3pm M48.04, Taking Gabapentin 300 MG Capsule 1 capsule Orally at HS M48.04, Taking Lasix(Furosemide) 20 MG Tablet 1 tablet [...] Tablet as directed Orally BID , Taking Omeprazole 40 MG Capsule Delayed [...] swelling - Allergy. Objective: * Vitals: W t:181.8lbs, Ht: 67 in, BP:122/82mm Hg, BMI:28.47Index, Ht-cm: 170.18 cm, Wt-k.46 kg. * Examination: A bdomen Exam:: s ome erythenm aaround vaginal area. Assessment: * Assessment: 1. D ysuria - R30.0 (Primary) Plan: * Treatment: * Labs: * L ab: UA DIP NONAUTO WO MICRO (48280) - IN OFFICE (Collection Date & Time - 09/14/2025) Value Reference Range C OLOR Yellow * C LARITY Clear * G LUCOSE Neg * B ILIRUBIN Neg * K ETONE + * S PECIFIC GRAVITY 1.001 * B LOOD + * P H 6.5 * P ROTEIN Neg * U ROBILINOGEN Neg * N ITRITE Neg * L EUKOCYTE ESTERASE Neg * Procedure Codes: 8 1002 URINALYSIS WO MICRO, 3079F DIAST BP 80-89 MM HG, 3074F SYST BP LT 130 MM HG * * Electronic signature of Finesse Marinelli MD, [id number] on 09/16/2025 at 02:11 PM EDT Sign off status: Pending Visit Status: Taz JIMENEZ (Check Out) * Provider: Paris Marinelli ([facility])MD Date: 1 Generated for Printi ng/Faxing/eTransmitting on: 02:11 PM EDT History and Physical Notes * HPI (History of Present Illness) Category Sub-Category Detail Notes Category Not es General Rasis spreading - may be more yeast infetrions Hx of bacterial vaginosis - but doesnt feel like that Examination Category Sub-Category Detail Notes Category Not es Abdomen Exam: some erythenm aaround vaginal area
[2025-09-16 13:36] VITALS: BP 131/88; PULSE 80; TEMP 36.7; O2SAT 99; BMI 27.4
--- NOTE | 2025-09-16 14:04 | PC.NURSE ---
PELVIC EXAM WITH JESSICA SANCHEZ AND CULTURES OBTAINED AND SENT TO LAB.
--- OUTSIDE RECORDS SUMMARY | 2025-09-16 14:11 | XMS_ITS | Clinical Summary ---
Author Organization [facility] Address [address] [facility] [place] [address] Care Team Providers Care Supervisor Briar Shop Name Role Phone Varun Marinelli MD Primary Care Provider [phone] Tiesha Hughes PHOTORADIO OPERATOR Unavailable [phone] Shasha White DO Unavailable [phone] Allergies Active Allergy Reactions Criticality Noted [...] Encounters Date Type Department Care Team Description 09/16/2025 Telephone [facility] [place] [facility] [address] [place] [address] Aura Murillo, 07/14/2025 Refill [facility] [place] [facility] [address] [place] [address] Aura Murillo, DO H/O: hysterectomy from Last 3 Months Family [...] EDT Office Visit [facility] [place] [facility] [address] [facility] [place] [address] Aura Murillo DO [address] [place] [address] Health Maintenance Due Date Last Done Comments [...] PM EST Narrative 01/28/2025 1:50 [place] [address] Mammography Report Signed Patient: PAIGE KEATING MR#: [id number] : 1975 Acct:[id number] Age/Sex: 49 / F ADM Date: 01/28/25 Loc: MAMMO Attending Dr: Aura Murillo D.O. Ordering Physician: Aura Murillo D.O. Results: Date of Service: 01/28/25 Follow Up: Procedure(s): MM tomosynthesis screening BI Accession Number(s): [id number] cc: Aura Murillo D.O.; Varun Marinelli M.D. Patient Name: PAIGE KEATING MR#: [id number] : 1975 Exam Date: 01/28/2025 Ordering Doctor: [...] ovarian cancer at age 77. LOCATION: [facility] BREAST COMPOSITION: There are scattered areas of [...] Signed By: 01/28/25 1350 DD/ 1349 TD/TT: Oss Architect: Procedure Note Radiology, RadiologistMD - 01/28/2025 [place] [address] Mammography Report Signed Patient: PAIGE KEATING NMR#: [id number] : 1975Acct:[id number] Age/Sex: 49 / FADM Date: 01/28/25 Loc: MAMMO Attending Dr: Aura Murillo D.O. Ordering Physician: Aura Murillo D.O.Results: Date of Service: 01/28/25Follow Up: Procedure(s): MM tomosynthesis screening BI Accession Number(s): [id number] cc: Aura Murillo D.O.; Varun Marinelli M.D. Patient Name: PAIGE KEATING MR#: [id number] : 1975 Exam Date: 01/28/2025 Ordering Doctor: DR AURA MURILLO . RADIOLOGY REPORT PROCEDURE: MM TOMOSYNTHESIS SCREENING BI COMPARISON: MM TOMOSYNTHESIS SCREENING BI, 11/26/2023. MG MAMM [id number] DEAN CAD, 09/12/2022. MG MAMM SCREEN 3D [...] with ovarian cancer atage 77. LOCATION: [facility] BREAST COMPOSITION: There are scattered areas of [...] M.D. Signed By:01/28/25 1350 DD/ 1349 TD/TT: Oss Architect: us Aura Lidia DO [facility] Final Result * Pap Smear (11/22/2024 12:00 AM EST) Swab Cervical swab / Unknown us Aura Lidia DO LAB CYTOLOGY ORDERABLES Final Re sult EXTERNAL LAB from Last 3 Months or Most Recently Relevant to Health Maintenance Insurance [employer] Care Teams Supervisor Briar Shop Relationship Specialty Start Date End Date Varun Marinelli MD PCP - General Family Medicine 06/26/23 Tiesha Hughes NP Nurse Practitioner Neurology 02/03/25 Shasha White DO [address] [place] [address] Referring Physician Neurology 02/03/25
--- OUTSIDE RECORDS SUMMARY | 2025-09-16 14:11 | XMS_ITS | Encounter Summary ---
Author Organization [facility] Address [address] [place] [address] Care Team Providers Care Launch Operator Name Role Phone Varun Marinelli MD Primary Care Provider [phone] Tiesha Hughes ROD MILL TENDER Unavailable [phone] Shasha White DO Unavailable Encounter Details Date Type Department Care Team (Late st Contact Info) Description 12/08/2024 Orders Only [facility] [place] [facility] [address] [place] [address] Bobbi Mcclain LPN [address] [employer] [place] [address] Social History Tobacco Use Types [...] Visit [facility] [place] [facility] [address] [facility] [place] [address] Delgado Murillo DO [address] [place] [address] documented as of this encounter Procedures Procedure Name Priority Date/Time Associated Diagnosis Comments PAP SMEAR Routine 11/22/2024 12:00 AM EST documented in this encounter Results * Pap Smear (11/22/2024 12:00 AM EST) Swab Cervical swab / Unknown us Delgado Murillo DO LAB CYTOLOGY ORDERABLES Final Re sult EXTERNAL LAB documented in this encounter Visit Diagnoses Not on filedocumented in this encounter Care Teams Launch Operator Relationship Specialty Start Date End Date Varun Marinelli MD PCP - General Family Medicine 06/26/23 Tiesha Hughes NP Nurse Practitioner Neurology 02/03/25 Shasha White DO [address] [place] [address] Referring Physician Neurology 02/03/25 documented as of this encounter
--- OUTSIDE RECORDS SUMMARY | 2025-09-16 14:11 | XMS_ITS | Patient Health Record ---
Author Organization [facility] Address [address] [place] [address] Care Team Providers Care Windrower Operator Name Role Phone Varun Marinelli Primary Care Provider Unavailsalome Edwige Angeles Unavailable [phone] Aman Cifuentes Unavailable [phone] xxAngleShikha bateman Unavailable Allergies Allergen (clinical drug [...] Problem Status W/U Status Risk Notes Problem 18336469 Muscle spasm (M62.838) Active confirmed Problem 163714174776807 Primary osteoarthritis, right hand (M19.041) Active confirmed Problem 40245126 DDD (degenerativ e disc disease), cervical (M50.30) Active confirmed Problem Degeneration of cervical intervertebral disc (61251921) Degeneration of intervertebral disc at C6-C7 level (M50.323) Active confirmed Problem 68795395 Lumbar stenosis with neurogenic claudication (M48.062) Active confirmed Problem Degeneration of cervical intervertebral disc (01786872) 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) Active confirmed Problem 365091009 Facet arthropath y, 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) Active confirmed Problem Lumbar arthritis (disorder) (525685242) 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) Active confirmed Problem 552496326 Scapular dyskinesis (G25.89) Active confirmed Problem Cervical facet joint pain (finding) (000237272) Cervical facet syndrome (M47.812) Active confirmed Problem 212136827 Facet arthropath y (M47.819) Active confirmed Problem 962166981300392 HNP (herniated nucleus pulposus), thoracic (M51.24) Active confirmed Problem Generalized osteoarthritis of the hand (276013587) 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) Active confirmed Encounters Encounter Location Date Provider Diagnosis [facility] Office [address] [facility] [place] [address] 01/17/2025 Aman Cifuentes Primary osteoarthritis, right hand M19.041 [facility] [address] [facility] [place] [address] [place] [address] 02/18/2025 Shikha [facility] HNP (herniated nucleus pulposus), thoracic M51.24 [...] Test Name Order Date Cervical spine,ap,lat,flex,ext - 22516 0 08/12/2024 MRI : Lumbosacral Spine W/O [...] RIGHT 05/03/2024 SCC- HAND 3 VIEW RIGHT 63906 05/03/2024 SCC- LUMBAR 4 VIEW 69744 05/03/2024 Insurance Providers Payer Name Payer Address Payer Phone Subscriber Number Group Number Insured Name Patient Relationship to Insured Coverage Start Date Coverage End Date [facility] [address] [place] [address] [phone] [id number] HORACIO KEATING Self - patient is the [...]
--- OUTSIDE RECORDS SUMMARY | 2025-09-16 14:11 | XMS_ITS | Encounter Summary ---
Author Organization [facility] Address [address] [facility] [place] [address] Care Team Providers Care Retail Product Demo Specialist Name Role Phone Varun Marinelli MD Primary Care Provider [phone] Tiesha Hughes SPRAYER HAND Unavailable [phone] Shasha White DO Unavailable [phone] Encounter Details Date Type Department Care Team (Late st Contact Info) Description 09/13/2024 Abstract [facility] HERNANDES [address] [facility] [facility] [place] [address] Delgado Murillo DO [address] [facility] [address] [place], [place] [address] Social History Tobacco Use Types Packs/Day Years [...] EDT Office Visit [facility] [place] [facility] [address] [facility] [address] [place] [address] Delgado Murillo DO [address] [facility] [address] [place], [place] [address] documented as of this encounter Visit Diagnoses Not on filedocumented in this encounter Care Teams Retail Product Demo Specialist Relationship Specialty Start Date End Date Varun Marinelli MD PCP - General Family Medicine 06/26/23 Tiesha Hughes NP Nurse Practitioner Neurology 02/03/25 Shasha White DO [address] [place], [place] [address] Referring Physician Neurology 02/03/25 documented as of this encounter
--- OUTSIDE RECORDS SUMMARY | 2025-09-16 14:11 | XMS_ITS | Encounter Summary ---
Author Organization [facility] Address [address] [facility] [place] [address] Care Team Providers Care County Historian Name Role Phone Varun Marinelli MD Primary Care Provider [phone] Tiesha Hughes ADULT SPECIALIST Unavailable [phone] Shasha White DO Unavailable [phone] Encounter Details Date Type Department Care Team (Late st Contact Info) Description 09/13/2024 Abstract [facility]IDA HERNANDES [address] [facility] [place] [address] Delgado Murillo DO [address] [facility] [address] [place], [place] [address] Social History Tobacco Use Types Packs/Day Years [...] EDT Office Visit [facility] [place] [facility] [address] [facility] [place] [address] Delgado Murillo DO [address] [facility] [address] [place], [place] [address] documented as of this encounter Visit Diagnoses Not on filedocumented in this encounter Care Teams County Historian Relationship Specialty Start Date End Date Varun Marinelli MD PCP - General Family Medicine 06/26/23 Tiesha Hughes NP Nurse Practitioner Neurology 02/03/25 Shasha White DO [address] [place], [place] [address] Referring Physician Neurology 02/03/25 documented as of this encounter
--- OUTSIDE RECORDS SUMMARY | 2025-09-16 14:11 | XMS_ITS | Clinical Summary ---
Author Organization [facility] Address [id number] [address] [place] [address] Care Team Providers Care Kohinoor Operator Name Role Phone Varun Marinelli MD Primary Care Provider [phone] Allergies Active Allergy Reactions Criticality Noted Date [...] ID:Not on file Type:Not on file Address: [place] [id number] Care Teams Kohinoor Operator Relationship Specialty Start Date End Date Varun Marinelli MD PCP - General 05/04/18
--- OUTSIDE RECORDS SUMMARY | 2025-09-16 14:12 | XMS_ITS | Encounter Summary ---
Author Organization [facility] Address [address] [place] [address] Care Team Providers Care Marketing Production Specialist Name Role Phone Varun Marinelli MD Primary Care Provider [phone] Tiesha Hughes PLASMA PROCESSING CENTRIFUGE OPERATOR Unavailable [phone] Shasha White DO Unavailable Encounter Details Date Type Department Care Team (Late st Contact Info) Description 04/08/2024 Clinisync Result Encounter N[facility] External Department Unsolicited Jessica Sanchez PA [address] [place] [address] [place] [address] Social History Tobacco Use Types Packs/Day Years [...] EDT Office Visit [facility] [place] [facility] [address] [facility] [place] [address] Delgado Murillo DO [address] [facility] [place] [address] documented as of this encounter Procedures Procedure Name Priority Date/Time Associated Diagnosis Comments US PELVIS W/ TRANSVAGINAL 04/08/2024 5:35 PM EDT documented in this encounter Results * US PELVIS W/ TRANSVAGINAL (04/08/2024 5:35 PM EDT) Anatomical Region Laterality Modality Other 04/08/2024 5:35 PM EDT Narrative 04/08/2024 5:38 PM EDT [address] [address] Ultrasound Report Signed Patient: PAIGE KEATING MR#: [id number] : 1975 Acct:[id number] Age/Sex: 48 / F ADM Date: 04/07/24 Loc: US Attending Dr: Jessica Sanchez Ordering Physician: Jessica Sanchez Date of Service: 04/07/24 Procedure(s): US pelvis w/ transvaginal Accession Number(s): [id number] cc: Jessica Sanchez; Varun Marinelli M.D. The [address] [address] Patient Name: PAIGE KEATING MRN: [id number] date: 1975 Sex: F Assigned Patient Location: US Current Patient Location: LAB Accession/Order Number: [id number] Exam Date: 04/07/2024 18:10 Report Date: 04/08/2024 [...] Signed By: 04/08/24 1738 DD/ 1735 TD/TT: Utility Bill Collector: Procedure Note Radiology, Radiologist, MD - 04/08/2024 The [place] [id number] Ultrasound Report Signed Patient: PAIGE KEATING NMR#: [id number] : 1975Acct:[id number] Age/Sex: 48 / FADM Date: 04/07/24 Loc: US Attending Dr: Jesisca Sanchez Ordering Physician: Jessica Sanchez Date of Service: 04/07/24 Procedure(s): US pelvis w/ transvaginal Accession Number(s): [id number] cc: Jessica Sanchez; Varun Marinelli M.D. The [address] [address] Patient Name: PAIGE KEATING MRN: [id number] date: 1975 Sex: F Assigned Patient Location: US Current Patient Location: LAB Accession/Order Number: [id number] Exam Date: 04/07/2024 18:10 Report Date: 04/08/2024 [...] Mckeon M.D. Signed By:04/08/241737 DD/ 34 TD/TT: Utility Bill Collector: us Jessica JUAREZ [facility] Final Result documented in this encounter Visit Diagnoses Not on filedocumented in this encounter Care Teams Marketing Production Specialist Relationship Specialty Start Date End Date Varun Marinelli MD PCP - General Family Medicine 06/26/23 Tiesha Hughes NP Nurse Practitioner Neurology 02/03/25 Shasha White DO [address] [place] [address] Referring Physician Neurology 02/03/25 documented as of this encounter
--- OUTSIDE RECORDS SUMMARY | 2025-09-16 14:12 | XMS_ITS | Encounter Summary ---
Author Organization [facility] Address [address] [place] [address] Care Team Providers Care Clinic Physician Name Role Phone Varun Marinelli MD Primary Care Provider [phone] Tiesha Hughes COSMETIC DENTIST Unavailable [phone] Shasha White DO Unavailable [phone] Encounter Details Date Type Department Care Team (Late st Contact Info) Description 11/27/2023 Clinisync Result Encounter NOM[facility] External Department Unsolicited Delgado Murillo DO [address] [facility] [place] [address] Social History Tobacco Use Types Packs/Day Years [...] [address] [facility] [place] [address] Delgado Murillo DO [address] [facility] [place] [address] documented as of this encounter Procedures Procedure Name Priority Date/Time Associated Diagnosis Comments MM TOMOSYNTHESIS SCREENING BI 11/27/2023 7:45 AM EST documented in this encounter Results * MM TOMOSYNTHESIS SCREENING BI (11/27/2023 7:45 AM EST) Anatomical Region Laterality Modality Other 11/27/2023 7:45 AM EST Narrative 11/27/2023 7:46 AM EST [address] [address] Mammography Report Signed Patient: PAIGE KEATING MR#: [id number] : 1975 Acct:[id number] Age/Sex: 48 / F ADM Date: 11/26/23 Loc: MAMMO Attending Dr: Delgado Murillo D.O. Ordering Physician: Delgado Murillo D.O. Results: Date of Service: 11/26/23 Follow Up: Procedure(s): MM tomosynthesis screening BI Accession Number(s): [id number] cc: Delgado Murillo D.O.; Varun Marinelli M.D. Patient Name: PAIGE KEATING MR#: [id number] : 1975 Exam Date: 11/26/2023 Ordering Doctor: [...] at age 77. LOCATION: The [facility] BREAST COMPOSITION: Scattered areas fibroglandular [...] M.D. Signed By: 11/27/23 0746 DD/ TD/TT: Chemistry Technologist: Procedure Note Radiology, Radiologist, MD - 11/27/2023 [place] [address] Mammography Report Signed Patient: PAIGE KEATING NMR#: [id number] : 1975Acct:[id number] Age/Sex: 48 / FADM Date: 11/26/23 Loc: MAMMO Attending Dr: Delgado Murillo D.O. Ordering Physician: Delgado Murillo D.O.Results: Date of Service: 11/26/23Follow Up: Procedure(s): MM tomosynthesis screening BI Accession Number(s): [id number] cc: Delgado Murillo D.O.; Varun Marinelli M.D. Patient Name: PAIGE KEATING MR#: [id number] : 1975 Exam Date: 11/26/2023 Ordering Doctor: [...] cancer atage 77. LOCATION: The [facility] BREAST COMPOSITION: Scattered areas fibroglandular [...] Mckeon M.D. Signed By:11/27/23 0746 DD/ TD/TT: Chemistry Technologist: Delgado Murillo DO [facility] Final Result documented in this encounter Visit Diagnoses Not on filedocumented in this encounter Care Teams Clinic Physician Relationship Specialty Start Date End Date Varun Marinelli MD PCP - General Family Medicine 06/26/23 Tiesha Hughes NP Nurse Practitioner Neurology 02/03/25 Shasha White DO [address] [place] [address] Referring Physician Neurology 02/03/25 documented as of this encounter
--- OUTSIDE RECORDS SUMMARY | 2025-09-16 14:12 | XMS_ITS | Encounter Summary ---
Author Organization [facility] Address [address] [facility] [place] [address] Care Team Providers Care Community Placement Worker Name Role Phone Varun Marinelli MD Primary Care Provider [phone] Tiesha Hughes FAMILY PRACTICE MEDICAL DOCTOR Unavailable [phone] Shasha White DO Unavailable [phone] Encounter Details Date Type Department Care Team (Late st Contact Info) Description 10/07/2023 Clinisync Result Encounter NOMS External Department Unsolicited Aura Murillo DO [address] [place], [place] [address] Social History Tobacco Use Types Packs/Day Years [...] Office Visit [facility]OM[facility] HERNANDES [address] [place] [address] Aura Murillo DO [address] [place], [place] [address] documented as of this encounter Procedures Procedure Name Priority Date/Time Associated Diagnosis Comments US PELVIS W/ TRANSVAGINAL 10/07/2023 7:23 AM EST documented in this encounter Results * US PELVIS W/ TRANSVAGINAL (10/07/2023 7:23 AM EST) Anatomical Region Laterality Modality Other 10/07/2023 7:23 AM EST Narrative 10/07/2023 7:23 [place] [address] Ultrasound Report Signed Patient: PAIGE KEATING MR#: [id number] : 1975 Acct:[id number] Age/Sex: 48 / F ADM Date: 10/04/23 Loc: US Attending Dr: Aura Murillo D.O. Ordering Physician: Aura Murillo D.O. Date of Service: 10/04/23 Procedure(s): US pelvis w/ transvaginal Accession Number(s): [id number] cc: Aura Murillo D.O.; Varun Marinelli M.D. [place] [address] Patient Name: PAIGE KEATING MRN: [id number] date: 1975 Sex: F Assigned Patient Location: US Current Patient Location: Accession/Order Number: [id number] Exam Date: 10/04/2023 09:07 Report Date: 10/07/2023 [...] M.D. Signed By: 10/07/23724 DD/ 2 TD/TT: Gardener: Procedure Note Radiology, Radiologist, - 10/07/2023 [place] [address] Ultrasound Report Signed Patient: PAIGE KEATING NMR#: [id number] : 1975Acct:[id number] Age/Sex: 48 / FADM Date: 10/04/23 Loc: US Attending Dr: Aura Murillo D.O. Ordering Physician: Aura Murillo D.O. Date of Service: 10/04/23 Procedure(s): US pelvis w/ transvaginal Accession Number(s): [id number] cc: Aura Murillo D.O.; Varun Marinelli M.D. The [place] [address] Patient Name: PAIGE KEATING MRN: [id number] date: 1975 Sex: F Assigned Patient Location: US Current Patient Location: Accession/Order Number: [id number] Exam Date: 10/04/2023 09:07 Report Date: 10/07/2023 [...] Sheehan M.D. Signed By:10/07/23724 DD/ 2 TD/TT: Gardener: Aura Murillo DO [facility] Final Result documented in this encounter Visit Diagnoses Not on filedocumented in this encounter Care Teams Community Placement Worker Relationship Specialty Start Date End Date Varun Marinelli MD PCP - General Family Medicine 06/26/23 Tiesha Hughes NP Nurse Practitioner Neurology 02/03/25 Shasha White DO [address] [place] [address] Referring Physician Neurology 02/03/25 documented as of this encounter
--- OUTSIDE RECORDS SUMMARY | 2025-09-16 14:12 | XMS_ITS | Encounter Summary ---
Author Organization [facility] Address [address] [place] [address] Care Team Providers Care Medical Record Specialist Name Role Phone Varun Marinelli MD Primary Care Provider [phone] Tiesha Hughes [employer] Unavailable [phone] Shasha White DO Unavailable [phone] Encounter Details Date Type Department Care Team (Late st Contact Info) Description 09/16/2025 Telephone [facility] [address] [place] [place] [id number] Delgado Murillo DO [address] [place] [id number] Social History Tobacco Use Types Packs/Day Years [...] on file documented as of this encounter Miscellaneous Notes * Telephone Encounter - Daisy Branham LPN - 09/16/2025 9:35 AM EDT Patient called the office and she states that she has seen Dr. Marinelli for recurrent UTI and he did puther on something for this but she is having pain and discomfort and think abscess in area. Patient was asking about something to help with this. Patient was advised we would have to see in office foruse of creams. Patient was transferred to clerical to see if she can get scheduled. documented in this encounter Plan of Treatment Upcoming Encounters Date Type Department Care Team (Late st Contact Info) Description 09/26/2025 3:10 PM EDT Office Visit [facility] [address] [place] [phone] Delgado Murillo DO [address] [place], [place] [id number] documented as of this encounter Visit Diagnoses Not on filedocumented in this encounter Care Teams Medical Record Specialist Relationship Specialty Start Date End Date Varun Marinelli MD PCP - General Family Medicine 06/26/23 Tiesha Hughes NP Nurse Practitioner Neurology 02/03/25 Shasha White DO [address] [place] [address] Referring Physician Neurology 02/03/25 documented as of this encounter
--- OUTSIDE RECORDS SUMMARY | 2025-09-16 14:12 | XMS_ITS | Patient Health Record ---
Author Organization [facility] in [place] Address [address] [place] [address] Care Team Providers [employer] Executive Security Name Role Phone Finesse Marinelli Primary Care Provider [phone] Allergies Allergen (clinical drug ingredient) Drug/Non Drug [...] UROBILINOGEN Neg NITRITE Neg LEUKOCYTE ESTERASE Neg CBC AUTO DIFF Reviewed date:01/17/2025 04:47:29 PM Interpretation: Performing Lab: Notes/Report: [facility] , White Blood Count 6.5 4.0-11.0 [...] Performing Lab: see note ML - [facility] LB MAGNESIUM Reviewed date:08/14/2025 12:36:43 PM Interpretation: Performing Lab: Notes/Report: [facility] , Magnesium 1.9 1.8-2.4 mg/dL Performing Lab: see note ML - [facility] LB PHOSPHORUS Reviewed date:08/14/2025 12:36:43 PM Interpretation: Performing Lab: Notes/Report: [facility] , Phosphorus 4.2 2.6-4.7 mg/dL Performing Lab: see note ML - [facility] LB THYROID ANTIBODIES Reviewed date:08/15/2025 07:51:36 PM Interpretation: Performing Lab: Notes/Report: [facility] , Thyroid Peroxidase (TPO) Ab 13 0-34 IU/mL Thyroglobulin Antibody <1.0 0.0-0.9 IU/mL Thyroglobulin Antibody measured by Abril Annalise Methodology It should be noted that the presence of thyroglobulin antibodies may not be pathogenic nor diagnostic, especially at very low levels. The assay cardiac nurse practitioner has found that four percent of individuals without evidence of thyroid disease or autoimmunity will have positive TgAb levels up to 4 IU/mL. Performed at: [address] [id number] Plumbing Foreman: Bowen Mcleod PhD, Phone: [phone] Performing Lab: see note LC - [facility] LB US renal bladder Reviewed date:08/23/2025 08:49:05 PM Interpretation: Performing Lab: Notes/Report: Source Facility: [place] [address] Ultrasound Report Signed Patient: PAIGE KEATING MR#: [id number] : 1975 Acct:[id number] Age/Sex: 50 / F ADM Date: 08/23/25 Loc: US Attending Dr: Sami Marinelli M.D. Ordering Physician: Sami Marinelli M.D. Date of Service: 08/23/25 Procedure(s): US renal bladder Accession Number(s): [id number] cc: Sami Marinelli M.D. [place] [address] Patient Name: PAIGE KEATING MRN: [id number] date: 1975 Sex: F Assigned Patient Location: US Current Patient Location: US Accession/Order Number: [id number] Exam Date: 08/23/2025 15:00 Report Date: 08/23/2025 [...] SUPERIOR POLE RIGHT KIDNEY. Impression dictated by: Christiane Tang Jr.OSally 08/23/2025 7:58 PM Dictation Location: [place] [address] Electronically authenticated by: [id number] Y Date: 08/23/2025 19:58 Dictated By: Seymour Hopper M.D. Signed By: 08/23/252000 DD/ 57 TD/TT: Fitness And Wellness Manager: GLYCOHEMOGLOBIN A1C Reviewed date:11/08/2024 08:11:38 PM Interpretation: Performing Lab: Notes/Report: [facility] , Glycohemoglobin A1C 5.7 4.5-6.2 % ADA RECOMMENDED LIMIT 4.0 - 6.0 ADA THERAPEUTIC TARGET < 7.0 ACTION SUGGESTED > 7.0 Estimated Average Glucose 117 Performing Lab: see note ML - [facility] IRON Reviewed date:11/08/2024 08:11:38 PM Interpretation: Performing Lab: Notes/Report: [facility] , Iron 51.0 50.0-170.0 ug/dL Performing Lab: see note ML - [facility] LB LIVER PROFILE Reviewed date:11/08/2024 08:11:38 PM Interpretation: Performing Lab: Notes/Report: [facility] , Bilirubin Total 0.8 0.2-1.0 mg/dL Bilirubin Direct 0.1 0.0-0.2 mg/dL Aspartate Amino Transferase 12 15-37 U/L Alanine Aminotransferase 27 14-59 U/L Alkaline Phosphatase 56 46-116 U/L Total Protein 7.2 6.4-8.2 g/dL Albumin Level 3.9 3.4-5.0 g/dL Globulin 3.3 Albumin Globulin Ratio 1.2 Performing Lab: see note ML - [facility] LB CBC AUTO DIFF Reviewed date:10/07/2024 07:25:15 PM Interpretation: Performing Lab: Notes/Report: [facility] , White Blood Count 8.7 4.0-11.0 [...] 3/uL Performing Lab: see note ML - [facility] FREE T3 Reviewed date:10/07/2024 07:25:15 PM Interpretation: Performing Lab: Notes/Report: [facility] , Free T3 3.36 2.18-3.98 pg/mL Performing Lab: see note [facility] GLYCOHEMOGLOBIN A1C Reviewed date:10/07/2024 07:25:15 PM Interpretation: Performing Lab: Notes/Report: [facility] , Glycohemoglobin A1C 6.1 4.5-6.2 % ADA RECOMMENDED LIMIT 4.0 - 6.0 ADA THERAPEUTIC TARGET < 7.0 ACTION SUGGESTED > 7.0 Estimated Average Glucose 128 Performing Lab: see note - [facility] INSULIN Reviewed date:10/09/2024 03:43:12 PM Interpretation: Performing Lab: Notes/Report: [facility] , Insulin 16.1 2.6-24.9 uIU/mL Performed at: - [address] [id number] Plumbing Foreman: Bowen Mcleod PhD, Phone: [phone] Performing Lab: see note - [facility] LB PROF 14(COMP METB) Reviewed date:10/07/2024 07:25:15 PM Interpretation: Performing Lab: Notes/Report: [facility] , Sodium 142 136-145 mmol/L Potassium [...] 1.1 Performing Lab: see note ML - [facility] LB T4 Reviewed date:10/07/2024 07:25:16 PM Interpretation: Performing Lab: Notes/Report: [facility] , T4 Thyroxine 10.40 4.80-13.90 ug/dL Performing Lab: see note ML - [facility] LB TSH Reviewed date:10/07/2024 07:25:16 PM Interpretation: Performing Lab: Notes/Report: [facility] , Thyroid Stimulating Hormone 2.291 0.358-3.740 uIU/mL Performing Lab: see note ML - [facility] LB Testosterone Reviewed date:10/09/2024 03:43:12 PM Interpretation: Performing Lab: Notes/Report: [facility] , Testosterone <3 4-50 ng/dL Performing Lab: see note - [facility] LB FSH Reviewed date:10/09/2024 03:43:12 PM Interpretation: Performing Lab: Notes/Report: [facility] , FSH 98.5 . mIU/mL Adult Female Range Follicular phase 3.5 - 12.5 Ovulation phase 4.7 - 21.5 Luteal phase 1.7 - 7.7 Postmenopausal 25.8 - 134.8 Performed at: - [facility] [id number] [place], [place] [id number] Plumbing Foreman: Bowen Mcleod PhD, Phone: [phone] Performing Lab: see note LC - [facility] LB Occult Blood* Reviewed date:10/09/2024 03:43:12 PM Interpretation: Performing Lab: Notes/Report: [facility] , Occult Blood Positive Performing Lab: see note ML - [facility] LB ROSS by IFA Reviewed date:10/17/2024 01:38:38 [...] Scleroderma, Antiphospholipid Syndrome Performed at: - [facility] [address] [id number] Plumbing Foreman: Bowen Mcleod PhD, Phone: [phone] Performing Lab: see note LC - [facility] LB CRP Reviewed date:10/13/2024 07:34:20 PM Interpretation: Performing Lab: Notes/Report: [facility] , C Reactive Protein <0.50 <=0.50 mg/dL Performing Lab: see note ML - [facility] LB PROF 14(COMP METB) Reviewed date:10/13/2024 07:34:20 PM Interpretation: Performing Lab: Notes/Report: [facility] , Sodium 140 136-145 mmol/L Potassium [...] Ratio 1.1 Performing Lab: see note - [facility] LB RHEUMATOID FACTOR Reviewed date:10/17/2024 01:38:38 PM Interpretation: Performing Lab: Notes/Report: [facility] , Rheumatoid Factor (RF) <10.0 <14.0 IU/mL Performing Lab: see note [facility] URIC ACID SERUM Reviewed date:10/13/2024 07:34:20 PM Interpretation: Performing Lab: Notes/Report: [facility] , Uric Acid 6.4 2.6-6.0 mg/dL Performing Lab: see note - [facility] LB Testosterone Reviewed date:10/17/2024 01:38:38 PM Interpretation: Performing Lab: Notes/Report: [facility] , Testosterone <3 4-50 ng/dL Performed at: [address] [id number] Plumbing Foreman: Bowen Mcleod PhD, Phone: [phone] Performing Lab: see note [facility] LB Antistreptolysin O Ab Reviewed date:10/17/2024 01:38:38 PM Interpretation: Performing Lab: Notes/Report: [facility] , Antistreptolysin O Ab 52.6 0.0-200.0 IU/mL Performed at: [address] [id number] Plumbing Foreman: Bowen Mcleod PhD, Phone: [phone] Performing Lab: see note - [facility] LB Acute Hepatitis Reviewed date:10/15/2024 06:25:47 AM [...] exists to indicate HCV infection. Performed at: [facility] [address] [id number] Plumbing Foreman: Bowen Mcleod PhD, Phone: [phone] Performing Lab: see note - [facility] LB US right upper quadrant Reviewed date:10/15/2024 06:25:47 AM Interpretation: Performing Lab: Notes/Report: Source Facility: [place] [address] Ultrasound Report Signed Patient: PAIGE KEATING MR#: [id number] : 1975 Acct:[id number] Age/Sex: 49 / F ADM Date: 10/13/24 Loc: US Attending Dr: Sami Marinelli M.D. Ordering Physician: Sami Marinelli M.D. Date of Service: 10/13/24 Procedure(s): US right upper quadrant Accession Number(s): [id number] cc: Sami Marinelli M.D. [place] [address] Patient Name: PAIGE KEATING MRN: [id number] date: 1975 Sex: F Assigned Patient Location: US Current Patient Location: Accession/Order Number: [id number] Exam Date: 10/13/2024 07:02 Report Date: 10/14/2024 [...] Dictated By: Aman Mckeon M.D. Signed By: 10/14/245 DD/ 2 TD/TT: Fitness And Wellness Manager: LAB TESTING Reviewed date:11/10/2024 07:25:39 PM Interpretation: Performing Lab: Notes/Report: [id number] SLE PROFILE A [facility] , Miscellaneous Test COMMENT . Test Ordered: [id number] Systemic Lupus Profile A U.S. REPRESENTATIVE Antibodies 0.2 AI CB Reference Range: 0.0-0.9 [...] 5 - 9 Positive >9 Performed at: [address] [id number] Plumbing Foreman: Bowen Mcleod PhD, Phone: [phone] Performing Lab: see note - [facility] Immunoglobulin A, Qn, Serum Reviewed date:11/10/2024 07:25:39 PM Interpretation: Performing Lab: Notes/Report: [facility] , Immunoglobulin A, Qn 187 87-352 mg/dL Performed at: [address] [id number] Plumbing Foreman: Bowen Mcleod PhD, Phone: [phone] Performing Lab: see note [facility] Immunoglobulin G, Qn, Serum Reviewed date:11/10/2024 07:25:39 PM Interpretation: Performing Lab: Notes/Report: [facility] , Immunoglobulin G, Qn 190 963-6094 mg/dL Performing Lab: see note [facility] LB t-Transglutaminase (tTG) IgA Reviewed date:11/10/2024 07:25:39 PM Interpretation: Performing Lab: Notes/Report: [facility] , t-Transglutaminase (tTG) IgA <2 0-3 U/mL Negative 0 - 3 Weak Positive 4 - 10 Positive >10 Tissue Transglutaminase (tTG) has been identified as the endomysial antigen. Studies have demonstr- ated that endomysial IgA antibodies have over 99% specificity for gluten sensitive enteropathy. Performed at: [address] [id number] Plumbing Foreman: Bowen Mcleod PhD, Phone: [phone] Performing Lab: see note [facility] LAB TESTING Reviewed date:11/10/2024 07:25:39 PM Interpretation: Performing Lab: Notes/Report: [id number] SLE PROFILE B [facility] , Miscellaneous Test COMMENT . Test Ordered: [id number] Systemic Lupus Profile B Complement C4, Serum 25 mg/dL CB Reference Range: 12-38 Complement C3, Serum 144 mg/dL CB Reference Range: 82-167 Anti-DNA (DS) Ab Qn <1 IU/mL CB Reference Range: 0-9 Negative <5 Equivocal 5 - 9 Positive >9 Antichromatin Antibodies <0.2 AI CB Reference Range: 0.0-0.9 ROSS Direct Negative CB Reference Range: Negative Performed at: [address] [id number] Plumbing Foreman: Bowen Mcleod PhD, Phone: [phone] Performing Lab: see note [facility] LAB TESTING Reviewed date:11/10/2024 07:25:39 PM Interpretation: Performing Lab: Notes/Report: [id number] MITOCHONDRIAL ANTIBODY [facility] , Miscellaneous Test COMMENT . Test Ordered: [id number] Mitochondrial (M2) Antibody Mitochondrial (M2) Antibody <20.0 Units CB Reference Range: 0.0-20.0 Negative 0.0 - 20.0 Equivocal 20.1 - 24.9 Positive >24.9 Mitochondrial (M2) Antibodies are found in 90-96% of patients with primary biliary cirrhosis. Performed at: [address] [id number] Plumbing Foreman: Bowen Mcleod PhD, Phone: [phone] Performing Lab: see note - [facility] LB LAB TESTING Reviewed date:11/10/2024 07:25:39 PM Interpretation: Performing Lab: Notes/Report: [id number] SMOOTH MUSCLE ANTIBODY [facility] , Miscellaneous Test COMMENT . Test Ordered: [id number] Actin (Smooth Muscle) Antibody Actin (Smooth Muscle) Antibody 5 Units CB Reference Range: 0-19 Negative 0 - 19 Weak positive 20 - 30 Moderate to strong positive >30 Actin Antibodies are found in 52-85% of patients with autoimmune hepatitis or chronic active hepatitis and in 22% of patients with primary biliary cirrhosis. Performed at: [address] [id number] Plumbing Foreman: Bowen Mcleod PhD, Phone: [phone] Performing Lab: see note - [facility] LB MR cervical spine wo con Reviewed date:11/15/2024 02:07:00 PM Interpretation: Performing Lab: Notes/Report: Source Facility: [place] [address] Magnetic Resonance Report Signed Patient: PAIGE KEATING MR#: [id number] : 1975 Acct:[id number] Age/Sex: 49 / F ADM Date: 11/12/24 Loc: MRI Attending Dr: Kyle Streeter NP Ordering Physician: Kyle Streeter NP Date of Service: 11/12/24 Procedure(s): MR cervical spine wo con Accession Number(s): [id number] cc: Kyle Streeter NP; Sami Marinelli M.D. [address] [address] Patient Name: PAIGE KEATING MRN: [id number] date: 1975 Sex: F Assigned Patient Location: MRI Current Patient Location: Accession/Order Number: [id number] Exam Date: 11/12/2024 13:48 Report Date: 11/15/2024 [...] M.D. Signed By: 11/15/2429 DD/ 5 TD/TT: Fitness And Wellness Manager: IGP,Aptima HPV,Age Gdln Reviewed date:12/01/2024 03:16:58 PM Interpretation: Performing Lab: Notes/Report: SPATULA-ALONE VAGINA [facility] , Age Gdln ACOG Testing Note . TESTS RESULT FLAG UNITS REF RANGE LAB Clinician Provided Cytology Information Source.............Anaid oquendo No. of containers..01 ThinPrep Vial Age Algo ACOG Mya... 30 01 FLAG LEGEND: L-Low Normal,H-High Normal,LL-Alert Low,HH-Alert High <-Panic Low,>-Panic High,A-Abnormal,AA-Criti marta Abnormal Performed at: 01 =G [facility] [place] [address] Britta Wang MD, IGP, Aptima HPV, rfx 16/18,45 Note . TESTS RESULT FLAG UNITS REF RANGE LAB DIAGNOSIS: 02 NEGATIVE FOR INTRAEPITHELIAL LESION OR MALIGNANCY. FUNGAL ORGANISMS MORPHOLOGICALLY CONSISTENT WITH VIVIANE SPECIES ARE PRESENT. Specimen adequacy: 02 Satisfactory for evaluation. Endocervical and/or squamous metaplastic cells (endocervical component) are present. Performed by: 02 Steve Dany, Volleyball Commentator ([facility]) . 02 Note: Note 03 The [...] Low,>-Panic High,A-Abnormal,AA-Criti marta Abnormal Performed at: 02 [facility] [id number] [place] [address] Kristian Waterman MD, 03 WB [facility] [address] [phone] Britta Wang MD, HPV Aptima Negative Negative This nucleic acid amplification test detects fourteen high- risk HPV types (16,18,31,33,35,39,45,51 ,52,56,58,59,66,68) without differentiation. Performed at: =G - [facility] [address] [id number] Plumbing Foreman: Britta Wang MD, Phone: [phone] Performed at: [facility] - [facility] [id number] [place] [id number] Plumbing Foreman: Kristian Waterman MD, Phone: [phone] Performing Lab: see note LC - [facility] LB ROSS by IFA Reviewed date:01/18/2025 09:15:56 [...] Linear Scleroderma, Antiphospholipid Syndrome Performed at: - [facility] [id number] Plumbing Foreman: Bowen Mcleod PhD, Phone: [phone] Performing Lab: see note - [facility] LB CRP Reviewed date:01/17/2025 04:47:29 PM Interpretation: Performing Lab: Notes/Report: [facility] , C Reactive Protein <0.50 <=0.50 mg/dL Performing Lab: see note - [facility] LB RHEUMATOID FACTOR Reviewed date:01/18/2025 09:16:06 PM Interpretation: Performing Lab: Notes/Report: [facility] , Rheumatoid Factor (RF) <10.0 <14.0 IU/mL Performing Lab: see note - [facility] LB URIC ACID SERUM Reviewed date:01/17/2025 04:47:29 PM Interpretation: Performing Lab: Notes/Report: [facility] , Uric Acid 4.5 2.6-6.0 mg/dL Performing Lab: see note - [facility] LB Erythrocyte Sedimentation Ra te Reviewed date:01/17/2025 04:47:29 PM Interpretation: Performing Lab: Notes/Report: [facility] , Erythrocyte Sedimentation Rate 9 <=20 mm/hr Performing Lab: see note ML - [facility] LB Antistreptolysin O Ab Reviewed date:01/18/2025 09:16:06 PM Interpretation: Performing Lab: Notes/Report: [facility] , Antistreptolysin O Ab 56.3 0.0-200.0 IU/mL Performed at: [facility] [address] [id number] Plumbing Foreman: Bowen Mcleod PhD, Phone: [phone] Performing Lab: see note - [facility] LB MM tomosynthesis screening B I Reviewed date:01/30/2025 12:35:04 PM Interpretation: Performing Lab: Notes/Report: Source Facility: [place] [address] Mammography Report Signed Patient: PAIGE KEATING MR#: [id number] : 1975 Acct:[id number] Age/Sex: 49 / F ADM Date: 01/28/25 Loc: MAMMO Attending Dr: Aura Murillo D.O. Ordering Physician: Aura Murillo D.O. Results: Date of Service: 01/28/25 Follow Up: Procedure(s): MM tomosynthesis screening BI Accession Number(s): [id number] cc: Aura Murillo D.O.; Sami Marinelli M.D. Patient Name: PAIGE KEATING MR#: [id number] : 1975 Exam Date: 01/28/2025 Ordering Doctor: [...] ovarian cancer at age 77. LOCATION: [facility] BREAST COMPOSITION: There are scattered areas [...] Signed By: 01/28/25 1350 DD/ 1349 TD/TT: Fitness And Wellness Manager: MR thoracic spine wo con Reviewed date:01/30/2025 12:35:04 PM Interpretation: Performing Lab: Notes/Report: Source Facility: [place] [address] Magnetic Resonance Report Signed Patient: PAIGE KEATING MR#: [id number] : 1975 Acct:[id number] Age/Sex: 49 / F ADM Date: 01/28/25 Loc: MRI Attending Dr: Sami Marinelli M.D. Ordering Physician: Sami Marinelli M.D. Date of Service: 01/28/25 Procedure(s): MR thoracic spine wo con Accession Number(s): [id number] cc: Sami Marinelli M.D. [place] [address] Patient Name: PAIGE KEATING MRN: [id number] date: 1975 Sex: F Assigned Patient Location: MRI Current Patient Location: MRI Accession/Order Number: [id number] Exam Date: 01/28/2025 15:57 Report Date: 01/28/2025 [...] Carlos Cat M.D.01/28/2025 4:11 PM Dictation Location: [place] [address] Electronically authenticated by: [id number] Y Date: 01/28/2025 16:11 Dictated By: J Carlos Cat M.D. Signed By: 01/28/251613 DD/ 10 TD/TT: Fitness And Wellness Manager: ROSS by IFA Reviewed date:08/15/2025 07:51:36 PM Interpretation: Performing Lab: Notes/Report: [facility] , Antinuclear Antibodies, IFA Negative . Negative <1:80 Borderline 1:80 Positive >1:80 ICAP nomenclature: AC-0 For more information about Hep-2 cell patterns use ANApatterns.org, the official website for the International Consensus on Antinuclear Antibody (ROSS) Patterns (ICAP). Performed at: [facility] [address] [id number] Plumbing Foreman: Bowen Mcleod PhD, Phone: [phone] Performing Lab: see note - [facility] LB CBC AUTO DIFF Reviewed date:08/14/2025 12:36:43 PM Interpretation: Performing Lab: Notes/Report: [facility] , White Blood Count 6.7 4.0-11.0 [...] 3/uL Performing Lab: see note ML - [facility] LB CRP Reviewed date:08/14/2025 12:36:43 PM Interpretation: Performing Lab: Notes/Report: [facility] , C Reactive Protein <0.50 <=0.50 mg/dL Performing Lab: see note ML - [facility] LB FOLATE Reviewed date:08/14/2025 12:36:43 PM Interpretation: Performing Lab: Notes/Report: [facility] , Folate 14.40 8.60-58.90 ng/mL Performing Lab: see note - [facility] FREE T3 Reviewed date:08/14/2025 12:36:43 PM Interpretation: Performing Lab: Notes/Report: [facility] , Free T3 2.20 2.18-3.98 pg/mL Performing Lab: see note ML - [facility] GLYCOHEMOGLOBIN A1C Reviewed date:08/14/2025 12:36:43 PM Interpretation: Performing Lab: Notes/Report: [facility] , Glycohemoglobin A1C 5.4 4.5-6.2 % ADA RECOMMENDED LIMIT 4.0 - 6.0 ADA THERAPEUTIC TARGET < 7.0 ACTION SUGGESTED > 7.0 Estimated Average Glucose 108 Performing Lab: see note - [facility] INSULIN Reviewed date:08/14/2025 01:13:07 PM Interpretation: Performing Lab: Notes/Report: [facility] , Insulin 13.5 2.6-24.9 uIU/mL Performed at: - [facility] [address] [id number] Plumbing Foreman: Bowen Mcleod PhD, Phone: [phone] Performing Lab: see note - [facility] LB IRON Reviewed date:08/14/2025 12:36:43 PM Interpretation: Performing Lab: Notes/Report: [facility] , Iron 71.0 50.0-170.0 ug/dL Performing Lab: see note ML - [facility] LB LIPID PROFILE Reviewed date:08/14/2025 12:36:43 PM Interpretation: Performing Lab: Notes/Report: [facility] , Triglycerides 204 <=150 mg/dL Cholesterol [...] >11.0 HIGH RISK Performing Lab: see note - [facility] LB PROF 14(COMP METB) Reviewed date:08/14/2025 12:36:43 PM Interpretation: Performing Lab: Notes/Report: [facility] , Sodium 143 136-145 mmol/L Potassium [...] 1.2 Performing Lab: see note ML - [facility] LB RHEUMATOID FACTOR Reviewed date:08/15/2025 07:51:36 PM Interpretation: Performing Lab: Notes/Report: [facility] , Rheumatoid Factor (RF) <10.0 <14.0 IU/mL Performing Lab: see note LC - [facility] LB T4 Reviewed date:08/14/2025 12:36:43 PM Interpretation: Performing Lab: Notes/Report: [facility] , T4 Thyroxine 7.80 4.80-13.90 ug/dL Performing Lab: see note - [facility] LB TSH Reviewed date:08/14/2025 12:36:43 PM Interpretation: Performing Lab: Notes/Report: [facility] , Thyroid Stimulating Hormone 0.906 0.358-3.740 uIU/mL Performing Lab: see note - [facility] UA RANDOM W or MICROSCOPIC Reviewed date:08/14/2025 12:36:43 PM Interpretation: Performing Lab: Notes/Report: [facility] , Color Urine YELLOW YELLOW Clarity Urine CLEAR CLEAR Specific [place] Urine >=1.030 1.005-1.025 pH Urine 5.5 5.0-9.0 [...] ORDERED Performing Lab: see note ML - [facility] LB URIC ACID SERUM Reviewed date:08/14/2025 12:36:43 PM Interpretation: Performing Lab: Notes/Report: [facility] , Uric Acid 5.0 2.6-6.0 mg/dL Performing Lab: see note ML - [facility] LB Testosterone Reviewed date:08/15/2025 07:51:36 PM Interpretation: Performing Lab: Notes/Report: [facility] , Testosterone <3 4-50 ng/dL Performed at: [facility] [address] [id number] Plumbing Foreman: Bowen Mcleod PhD, Phone: [phone] Performing Lab: see note - [facility] LB Antistreptolysin O Ab Reviewed date:08/15/2025 07:51:36 PM Interpretation: Performing Lab: Notes/Report: [facility] , Antistreptolysin O Ab 57.0 0.0-200.0 IU/mL Performed at: [address] [id number] Plumbing Foreman: Bowen Mcleod PhD, Phone: [phone] Performing Lab: see note [facility] LB Vitamin D, 25-Hydroxy Reviewed date:08/15/2025 07:51:36 PM Interpretation: Performing Lab: Notes/Report: [facility] , Vitamin D, 25-Hydroxy 31.2 30.0-100.0 ng/mL Vitamin D deficiency has been defined by the [place] of Medicine and an Endocrine Society practice guideline as a level of serum 25-OH vitamin D less than 20 ng/mL (1,2). The Endocrine Society went on to further define vitamin D insufficiency as a level between 21 and 29 ng/mL (2). 1. IOM ([place] of Medicine). 2010. Dietary reference intakes for calcium and D. [place]: The National Academies Press. 2. Benita MF, Kyra NC, Hal RIVERA, et al. Evaluation, treatment, and prevention of vitamin D deficiency: an Endocrine Society clinical practice guideline. JCEM. 2010; 96(7):1911-30. Performed at: [address] [id number] Plumbing Foreman: Bowen Mcleod PhD, Phone: [phone] Performing Lab: see note [facility] Vitamin B12 Reviewed date:08/14/2025 12:36:43 PM Interpretation: Performing Lab: Notes/Report: [facility] , Vitamin B12 027 792-8285 pg/mL Performed at: [address] [id number] Plumbing Foreman: Bowen Mcleod PhD, Phone: [phone] Performing Lab: see note [facility] Reviewed date:08/15/2025 01:10:10 PM Interpretation: Performing Lab: Notes/Report: [facility] , Urine Culture - FR See Below For Report Urine Culture - [facility] >100,000 colonies/ml mixed Urine Culture - [facility] bacterial skin contaminants Urine Culture - [facility] >100,000 colonies/ml mixed Urine Culture - [facility] 2 Days Urine Culture - [facility] >100,000 colonies/ml mixed Urine Culture - [facility] Urine Culture - [facility] >100,000 colonies/ml mixed Urine Culture - [facility] Testing performed a [facility] Urine Culture - [facility] >100,000 colonies/ml mixed Urine Culture - [facility] [address] [place] [address] Urine Culture - [facility] >100,000 colonies/ml mixed Performing Lab: see note ML - [facility] LB Immunoglobulins A/G/M, Qn, S er Reviewed date:08/14/2025 01:13:07 PM Interpretation: Performing Lab: Notes/Report: [facility] , Immunoglobulin G, Qn, Serum 6478 747-9192 mg/dL Immunoglobulin A, Qn, Serum 225 87-352 mg/dL Immunoglobulin M, Qn, Serum 93 26-217 mg/dL Performed at: - [facility] [address] [id number] Plumbing Foreman: Bowen Mcleod PhD, Phone: [phone] Performing Lab: see note LC - [facility] LB US pelvis transvaginal Reviewed date:08/23/2025 08:49:05 PM Interpretation: Performing Lab: Notes/Report: Source Facility: [place] [address] Ultrasound Report Signed Patient: PAIGE KEATING MR#: [id number] : 1975 Acct:[id number] Age/Sex: 50 / F ADM Date: 08/23/25 Loc: US Attending Dr: Sami Marinelli M.D. Ordering Physician: Sami Marinelli M.D. Date of Service: 08/23/25 Procedure(s): US pelvis transvaginal Accession Number(s): [id number] cc: Sami Marinelli M.D. [place] [address] Patient Name: PAIGE KEATING MRN: [id number] date: 1975 Sex: F Assigned Patient Location: Current Patient Location: US Accession/Order Number: [id number] Exam Date: 08/23/2025 15:00 Report Date: 08/23/2025 [...] Impression: No suspicious findings. Impression dictated by: Seymour Hopper Jr., D.O. 08/23/2025 8:00 PM Dictation Location: [place] [address] Electronically authenticated by: [id number] Y Date: 08/23/2025 20:00 Dictated By: Seymour Hopper M.D. Signed By: 08/23/252001 DD/ 99 TD/TT: Fitness And Wellness Manager: CRP Reviewed date:09/14/2025 07:16:52 PM Interpretation: Performing Lab: Notes/Report: [facility] , C Reactive Protein <0.50 <=0.50 mg/dL Performing Lab: see note ML - [facility] LB FREE T4 Reviewed date:09/14/2025 07:16:52 PM Interpretation: Performing Lab: Notes/Report: [facility] , Free T4 1.14 0.76-1.46 ng/dL Performing Lab: see note ML - [facility] LB TSH Reviewed date:09/14/2025 07:16:52 PM Interpretation: Performing Lab: Notes/Report: [facility] , Thyroid Stimulating Hormone 1.500 0.358-3.740 uIU/mL Performing Lab: see note ML - [facility] LB UA RANDOM W or MICROSCOPIC Reviewed date:09/14/2025 07:16:52 PM Interpretation: Performing Lab: Notes/Report: [facility] , Color Urine LT. YELLOW YELLOW Clarity Urine CLEAR CLEAR Specific [place] Urine <=1.005 1.005-1.025 pH Urine 6.0 5.0-9.0 Protein Urine NEGATIVE NEG/TRACE mg/dL Glucose Urine UA NEGATIVE NEGATIVE mg/dL Bilirubin Urine NEGATIVE NEGATIVE Ketones Urine NEGATIVE NEGATIVE mg/dL Blood Urine NEGATIVE NEGATIVE Nitrite Urine NEGATIVE NEGATIVE Urobilinogen Urine 0.2 0.2-1.0 EU/dL Leukocyte Esterase Urine TRACE NEGATIVE WBC Urine 2-5 NONE SEEN #/HPF RBC Urine 0-2 0-2 #/HPF Bacteria Urine TRACE NONE SEEN #/HPF Mucus Urine NONE SEEN NONE SEEN Squamous Epithelial Cell Urine RARE NONE/RARE #/LPF Crystals Seen? None Seen None Seen #/HPF Cast Seen? NONE SEEN NONE SEEN #/LPF Urine Culture Indicated ALREADY ORDERED Performing Lab: see note ML - [facility] URIC ACID SERUM Reviewed date:09/14/2025 07:16:52 PM Interpretation: Performing Lab: Notes/Report: [facility] , Uric Acid 5.9 2.6-6.0 mg/dL Performing Lab: see note ML - [facility] Erythrocyte Sedimentation Ra te Reviewed date:09/14/2025 07:16:52 PM Interpretation: Performing Lab: Notes/Report: [facility] , Erythrocyte Sedimentation Rate 5 <=20 mm/hr Performing Lab: see note ML - [facility] Urine Culture - [facility] Reviewed date:09/14/2025 07:16:52 PM Interpretation: Performing Lab: Notes/Report: [facility] , Urine Culture - [facility] See Below For Report Urine Culture - [facility] PEND Pending - Specimen sent to [facility]^Pending - Specimen sent to [facility] Performing Lab: see note ML - [facility] LB Reason For Referral Reason Had last colonoscopy with you in 2018 Diagnosis 1 Positive occult stoo l blood test (R19.5) Referral Organization [facility] Referring Provider First Name Finesse Referring Provider Last Name rob [facility]erred Provider Nicola Gee Referred Provider Specialty General Surg rita Referral Priority Routine Diagnosis 1 Elevated liver enzym es (R74.8) Referral Organization [facility] Referring Provider First Name Finesse Referring Provider Last Name Yves Referring Provider [facility] urbano Referred Provider Vinayak Baltazar Referred Provider Specialty Gastroentero logy Referral Priority Routine Diagnosis 1 Hand arthritis (M12. 9) Diagnosis 2 Other specified arth ritis, right hand (M13.841) Referral Organization [facility] Referring Provider First Name Finesse Referring Provider Last Name Yves [facility] Referred Provider Nathan Vidal Referred Provider Specialty Rheumatology Referral Priority Routine Diagnosis 1 Other specified arth ritis, right hand (M13.841) Referral Organization [facility] Referring Provider First Name Finesse Referring Provider Last Name Yves Referring Provider [facility] Referred Provider Rosalind Lara Referred Provider Specialty Orthopedic S urgery Referral Priority Routine Medications Medication SIG (Take, Route, Frequency, Duration) Notes Start Date End Date Status metFORMIN HCl 500 MG 1 tablet with a viridiana l Orally BID; Duration: 90 days 10/13/2024 Active Lisinopril 10 MG 1 tablet Orally Once a day; Duration: 90 days Active Mupirocin 2 % 1 application Chopper Operator ally Twice a day; Duration: 5 days 03/23/2025 Active Metoprolol Tartrate 75 mg TAKE 1 TABLET TWICE A DAY WITH FOOD Active Lasix 20 MG 1 tablet Orally Once a day; Duration: 90 days PRN 04/08/2024 Active Doxycycline Hyclate 100 MG 1 capsule Ora lly twice a day; Duration: 10 days 09/15/2025 Active Gabapentin 300 MG 1 capsule Orally [...] 1 tablet Orally Q afternoon 09/06/2025 Active tiZANidine HCl 2 MG 1 tablet at bedtime as needed Orally Once a day; Duration: 30 days 07/04/2025 Active ALPRAZolam 0.25 MG 1 tablet Orally once daily; Duration: 7 days As needed F41.9 08/05/2025 Active Adderall XR 30 MG 1 capsule in the mor meagan Orally Once a day; Duration: 30 days 02/09/2025 Active Testosterone 10 MG/ACT (2%) 1 pump to skin in the morning to the thighs Transdermal QOD; Duration: 30 days 10/19/2024 Active Terbinafine HCl 250 MG 1 tablet Orally O nce a day; Duration: 30 days 03/23/2025 Active Lidocaine HCl 3 % as directed External ly 3 times a day 09/14/2025 Active Semaglutide 0.6 mg/0.5 mL Semaglutide 0.6 mg/0.5 mL 0.5 mL Subcutaneous Once Weekly; Duration: 30 days 08/09/2024 Active Omeprazole 40 MG 1 capsule Orally twi ce a day; Duration: 90 days Active Cipro 500 MG 1 tablet Orally BID; Duration: 10 days 09/15/2025 Active Nabumetone 750 MG as directed Orally BID Active Potassium Chloride ER 10 MEQ 1 tablet with food Orally Twice a day; Duration: 90 days PRN 04/08/2024 Active Ondansetron 4 MG 1 tablet on [...] Notes Problem Obstructive sleep apnea syndrome (disorder) (62936040) Obstructive sleep apnea (adult) (pediatric) (G47.33) Active confirmed Problem Primary insomnia (0031251) Primary insomnia (F51.01) Active confirmed Problem Allergic arthritis o f the hand (284764532) Other specified arthritis, right hand (M13.841) Active confirmed Problem Degeneration of lumbar intervertebral disc (47878077) Other intervertebral disc degeneration, lumbar region (M51.36) Active confirmed Problem Dysuria (00132713) Dysuria (R30.0) Active confi rmed Problem Fatigue (37545989) Fatigue (R53.83) Active conf irmed Problem Hypertension (71771499) Hypertension (I10) Active confirmed Problem Gastroesophageal reflux disease (020150776) GERD (gastroesophageal reflux disease) (K21.9) Active confirmed Problem Anxiety (89048464) Anxiety (F41.9) Active confi rmed Problem Neck pain (30996149) Neck pain (M54.2) Active c onfirmed Problem Thoracic spinal stenosis (09301041) Thoracic spinal stenosis (M48.04) Active confirmed Problem Arthralgia (87112829) Arthralgia (M25.50) Active confirmed Problem Well adult (353892336) Well adult (Z00.00) Active confirmed Problem Pain in limb (86643323) Right hand pain (M79.641) Active confirmed Problem Abnormal vaginal bleeding (949530311) DUB (dysfunctional uterine bleeding) (N93.8) Active confirmed Problem Narcolepsy (93600656) Narcolepsy (G47.419) Activ e confirmed Problem Plantar fasciitis (313523231) Plantar fasciitis (M72.2) Active confirmed Problem Hypotestosteronemia (2941473915719) Hypotestosteronemia (E29.1) Active confirmed Problem Diverticular disease of colon (893351790) Diverticula of colon (K57.30) Active confirmed Problem Vaginal bleeding (876837005) Vaginal bleeding (N93.9) Active confirmed Problem 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) Active confirmed Problem Visual disturbance (45189852) Vision changes (H53.9) Active confirmed Problem Arthropathy (699227782) Hand arthritis (M12.9) Active confirmed Problem Snoring (88972323) Snorings (R06.83) Active con firmed Problem Irritable bowel syndrome (31789774) Irritable bowel syndrome (IBS) (K58.9) Active confirmed Problem Arthralgia of the pelvic region and thigh (777859335) Hip pain, acute (M25.559) Active confirmed Problem hypercholesterolemia (disorder) (86627691) Hypercholesteremia (E78.00) Active confirmed Problem Prediabetes (377895414) Pre-diabetes (R73.03) Active confirmed Problem Cyst of right ovary (41578910419797041) Ovarian cyst, right (N83.201) Active confirmed Problem Arthritis of right hand (565868909628340) Arthritis of right hand (M19.041) Active confirmed Problem Low testosterone (579031030) Low testosterone (E34.9) Active confirmed Problem COVID-19 (642236613) COVID-19 (U07.1) Active co nfirmed Vital Signs Blood pressure diastolic 82 mm Hg 09/14/2025 Height 67 in 09/14/2025 Blood pressure systolic 122 mm Hg 09/14/2025 Weight 181.8 lbs 09/14/2025 BMI 28.47 kg/m2 09/14/2025 Encounters Encounter Location Date Provider Diagnosis [address] [address] 10/06/2024 Finesse Hoy Hypertension I10 ; Pre-diabetes R73.03 and DUB (dysfunctional uterine bleeding) N93.[address] [address] 10/18/2024 Finesse Hoy Hypertension I10 ; G ERD (gastroesophageal reflux disease) K21.9 ; Low testosterone E34.9 and Arthralgia M25.[address] [address] 01/14/2025 Finesse Hoy Other specified arth ritis, right hand M13.841 ; Arthralgia M25.50 and Thoracic spinal stenosis M48.[address] [address] 03/23/2025 Finesse Hoy Jaw pain R68.84 and Pre-diabetes R73.[address] [address] 08/11/2025 Finesse Hoy Hypercholesteremia E 78.00 ; Arthritis of right hand M19.041 ; Low testosterone E34.9 and Well adult Z00.[address] [address] 09/14/2025 Finesse Marinelli Dysuria R30.0 [facility] [address] [place] [facility] [place] [address] 10/06/2024 Finesse Yves [facility] [address] [place] [facility] [place] [address] 10/06/2024 Finesse Yves [facility] [address] [place] [facility] [place] [address] 10/07/2024 Finesse Yves [facility] [address] [place] [facility] [place] [address] 10/07/2024 Finesse Vargasy Elevated liver enzym es R74.8 and Fatigue R53.83 [facility] [address] [place] [facility] [place] [address] 10/09/2024 Finesse Vargasy Positive occult stoo l blood test R19.5 and Fatigue R53.83 [facility] [address] [place] [facility] [place] [address] 10/11/2024 Finesse Marinelli [facility] [address] [place] [facility] [place] [address] 10/13/2024 Finesse Marinelli Elevated liver enzym es R74.8 [facility] [address] [place] [facility] [place] [address] 10/15/2024 Finesse Marinelli [facility] [address] [place] [facility] [place] [address] 10/17/2024 Finesse Marinelli [facility] [address] [place] [facility] [place] [address] 10/18/2024 Finesse Marinelli [facility] [address] [place] [facility] [place] [address] 10/19/2024 Finesse Marinelli [facility] [address] [place] [facility] [place] [address] 10/25/2024 Finesse Marinelli [facility] [address] [place] [facility] [place] [address] 11/02/2024 Finesse Vargasy Hypertension I10 ; F atigue R53.83 and Elevated liver enzymes R74.8 [facility] [address] [place] [facility] [place] [address] 11/08/2024 Finesse Hoy Hypertension I10 [facility] [address] [facility] [place] [address] 11/10/2024 Finesse Hoy [facility] [address] [facility] [place] [address] 11/10/2024 Finesse Hoy [facility] [address] [facility] [place] [address] 11/12/2024 Finesse Hoy Hypertension I10 [facility] [address] [facility] [address] 11/15/2024 Finesse Hoy [facility] [address] [facility] [address] 11/15/2024 Finesse y [facility] [address] [facility] [place] [address] 11/19/2024 Finesse Hoy Hypertension I10 [facility] [address] [facility] [place] [address] 11/26/2024 Finesse Hoy Hypertension I10 [facility] [address] [facility] [place] [address] 12/23/2024 Finesse Hoy [facility] [address] [facility] [address] 01/10/2025 Finesse Hoy Hypertension I10 [facility] [address] [facility] [address] 01/17/2025 Finesse Hoy [facility] [address] [facility] [place] [address] 01/18/2025 Finesse Hoy [facility] [address] [facility] [place] [address] 01/27/2025 Finesse Hoy Other specified arth ritis, right hand M13.841 [facility] [address] [facility] [place] [address] 01/30/2025 Finesse Hoy Other specified arth ritis, right hand M13.841 [facility] [address] [place] [address] 02/08/2025 Finesse Hoy Hypertension I10 and Other specified arthritis, right hand M13.841 [facility] [address] [facility] [place] [address] 03/01/2025 Finesse Hoy [facility] [address] [place] [facility] [place] [address] 03/07/2025 Finesse Hoy Other specified arth ritis, right hand M13.841 [facility] [address] [place] [facility] [place] [address] 03/16/2025 Finesse Hoy Kidney cysts Q61.00 [facility] [address] [place] [facility] [place] [address] 03/25/2025 Finesse Hoy Jaw pain R68.84 [facility] [address] [place] [facility] [place] [address] 03/28/2025 Finesse Hoy Jaw pain R68.84 [facility] [address] [place] [facility] [place] [address] 03/28/2025 Finesse Hoy Jaw pain R68.84 [facility] [address] [place] [facility] [place] [address] 04/13/2025 Finesse Hoy [facility] [address] [place] [facility] [place] [address] 04/27/2025 Finesse Hoy Jaw pain R68.84 and Other specified arthritis, right hand M13.841 [facility] [address] [place] [facility] [place] [address] 06/01/2025 Finesse Hoy Jaw pain R68.84 and Other specified arthritis, right hand M13.841 [facility] [address] [place] [facility] [place] [address] 07/04/2025 Finesse Hoy Other specified arth ritis, right hand M13.841 and Jaw pain R68.84 [facility] [address] [facility] [place] [address] 08/05/2025 Finesse Hoy Jaw pain R68.84 ; Ot her specified arthritis, right hand M13.841 and Hypertension I10 [facility] [address] [place] [facility] [place] [address] 08/11/2025 Finesse Hoy Other specified arth ritis, right hand M13.841 [facility] [address] [place] [facility] [place] [address] 08/14/2025 Finesse Marinelli Well adult Z00.00 ; Jaw pain R68.84 and Other specified arthritis, right hand M13.841 [facility] [address] [place] [facility] [place] [address] 08/15/2025 Finesse Samy [facility] [address] [place] [facility] [place] [address] 08/15/2025 Finesse Marinelli [facility] [address] [place] [facility] [place] [address] 08/15/2025 Finesse Marinelli [facility] [address] [place] [facility] [place] [address] 08/22/2025 Finesse Marinelli Vaginal bleeding N93 .9 [place] [address] [place] [facility] [place] [address] 08/23/2025 Finesse Marinelli [facility] [address] [place] [facility] [address] 09/06/2025 Finesse Marinelli Other specified arth ritis, right hand M13.841 and Jaw pain R68.84 [place] [address] [facility] [place] [address] 09/12/2025 Finesse Marinelli [facility] [address] [facility] [place] [address] 09/14/2025 Finesse Marinelli Assessments Encounter Date Diagnosis (ICD [...] IRON, TOTAL 08/11/2025 LIPID PANEL (CHOL/TRIG/HDL/LDL) 08/11/20 CBC WITH DIFF 10/06/2024 CBC WITH DIFF 09/10/2023 IGG, IGA and IGM, TOTAL (IMMUNOGLOBULINS ) 08/11/2025 VITAMIN D, 25 LEVEL (TOTAL) 08/11/2025 US Transvaginal Pelvic 08/22/2025 Urinalysis Microscopic 08/11/2025 Urinalysis Microscopic 09/14/2025 RHEUMATOID PANEL 09/14/2025 RHEUMATOID PANEL 10/09/2024 RHEUMATOID PANEL 11/02/2024 RHEUMATOID PANEL 08/11/2025 RHEUMATOID PANEL 01/14/2025 LUPUS (12) PANEL 06/13/2023 LUPUS (12) PANEL 11/02/2024 Insulin Level 10/06/2024 Insulin Level 08/11/2025 ACUTE HEPATITIS PANEL 10/07/2024 CMP - Comprehensive Metabolic Panel 0 05/2024 TESTOSTERONE 10/07/2024 STOOL OCCULT BLOOD 08/11/2025 STOOL OCCULT BLOOD 10/06/2024 US Pelvis Complete 09/06/2024 CBC AUTO DIFF 09/02/2024 CELIAC ANTIBODIES PROFILE 09/14/2025 CULTURE URINE 09/14/2025 CULTURE URINE 08/11/2025 FSH 10/06/2024 GLYCOHEMOGLOBIN A1C 09/02/2024 GLYCOHEMOGLOBIN A1C 08/18/2023 LIPID PROFILE 09/02/2024 PROF 14(COMP METB) 09/02/2024 RHEUMATOID FACTOR 06/13/2023 SED RATE WESTERGREN 01/14/2025 SED RATE WESTERGREN 09/14/2025 TESTOSTERONE, TOTAL 10/06/2024 TESTOSTERONE, TOTAL 08/11/2025 THYROID PROFILE WITH TSH 09/02/2024 THYROID PROFILE WITH TSH 09/14/2025 TOTAL PROTEIN SERUM 11/02/2024 VIT B12 AND [...] Date MMO [employer] [address] [place] [address] [id number] [place] Paige Self - patient is the insured Medications [...] right N83.201 Surgical History Surgery Date(Month/Year) Right index finger steroid injection 2024 Right Sacroiliac joint injection- Dr Alexander becerra 11/15/24 EGD- Dr Guillermo Nelson 10/02/24 Bilateral L3-4 transforaminal epidural s teroid inj 10/04/24 colonoscopy 2020 hysterectomy Cholecystectomy Endometrial Polyp removal Tubal Ligation
--- OUTSIDE RECORDS SUMMARY | 2025-09-16 14:13 | XMS_ITS | CCD ---
Author Organization [facility] CliniSyne Care Team Providers Care Rehabilitation Coordinator Name Role Phone Nahid Mccoy Unavailable Clarice [...] DR ABIGAIL Mc Consulting Unavailable HOY, DR GALLAROD Consulting Unavailable HOY, DR GALLARDO Primary Care [...] Provider Sami Mccarty MD Primary Care Provider [phone] BECCA SCHWARZ Attending Unavailable MIGUEL MCCARTYLAS M [...] Unavailable Sami Mccarty MD Primary Care Provider [phone] Ellen PACKAGE SEALER MACHINE, Tiesha Unavailable Cindy DO, Shasha Unavailable TIESHA HUGHES Attending Unavailable DELGADO MURILLO Attending Unavailable CAROL WEBB Attending Unavailable LOLISEDWIGE JUNE Referring Unavailable DELGADO MURILLO Attending Unavailable DELGADO MURILLO Attending Unavailable NON STAFF Primary Care Provider UnavailCarol Pritchett MD Attending Provider Vinayak Baltazar Attending Unavailable Vinayak Baltazar Attending Unavailable Sami Mccarty MD Attending Provider [phone] Sami Mccarty Attending Unavailable Sami Mccarty Admitting [facility]available [facility] Attending Unavailable [facility], Dedrick Majano Admitting Unavailable NON STAFF Primary Care Unavailable NON STAFF Primary Care Unavailable Carol Vidal Attending Unavailable Carol Vidal Admitting Unavailable Allergies Allergy Classification Reported Allergen(s) Allergy Type Date of Onset Reaction(s) Facility (10 sources) NITROFURANTOIN, MACROCRYSTALS / Nitrofurantoin, Monohydrate; Translations: [nitrofurantoin] Drug Allergy 05-01-20 18 Neck swelling (finding), Swelling [facility] (2 sources) Albuterol Drug Allergy [facility] Comment on above: NEED TO CUT DOWN ADR ENALIN TO PREVENT SEIZURES (3 sources) Bee/Wasp/Ant venom; Translations: [Bee Stings] Allergy to substance Nausea, Swelling [facility] (2 sources) PECANS 1 Food allergy [facility] Comment on above: AIRWAY CONSTRICTION (2 sources) bee venom Drug allergy (disorder) 06-09-20 15 [facility] Rep[facility] (2 sources) egg extract Drug Allergy 06-09-20 15 [facility] (4 sources) Nitrofurantoin; Translations: [Macrobid] Drug Allergy 05-02-20 12 [facility] (2 sources) pecan pollen extract Drug Allergy [facility] (4 sources) tree nut, unspecified; Translations: [TREE NUT] Drug allergy (disorder) 06-09-20 15 [facility] Rep[facility] (16 sources) Albuterol; Translations: [albuterol] Drug Allergy 07-16-20 17 Other, Other (See Comments) [facility] Repository (12 sources) Honey bee venom Allergy to substance 04-05-20 24 [facility] (12 sources) Nitrofurantoin Drug Allergy 05-01-20 18 Swelling [facility] (12 sources) Nitrofurantoin Drug Allergy 04-05-20 24 [facility] (12 sources) Egg-Derived Products Drug Allergy 04-05-20 24 [facility] (16 sources) Other; Translations: [OTHER] Propensity to adverse reactions 05-13-20 05 [facility] (2 sources) NITROFURANTOIN MONOHYD/M-CRYST; Translations: [NITROFURANTOIN MONOHYD/M-CRYST] Propensity to adverse reactions to drug (disorder) 05-01-20 [facility] Repository (2 sources) BEE VENOM PROTEIN (HONEY BEE); Translations: [BEE VENOM PROTEIN (HONEY BEE)] Propensity to adverse reactions to drug (disorder) 04-05-20 [facility] Repository (1 source) Egg; Translations: [Eggs] Food allergy (disorder) [facility] Repository (1 source) PECANS; Translations: [PECANS] Food allergy (disorder) [facility] Repository (1 source) Nitrofurantoin Drug Allergy 10-01-20 [facility] Repository Medications Current Medications Medication Drug [...] take 1 tablet by mouth in the tx rning polycarbophil (FIBERCON) 625 mg tablet Take [...] (two) times a day Active lactobacillus acidophilus [id number] unt / pectin 100 mg oral tablet [...] Status: Ordered take 1 capsule by mo [facility] every twenty-four hours Omeprazole 40 MG 1 cap(s) p.o. Once a da y Active peg 3350-sod sulf,clpy-xvk-fow 178.7-7.3-0.5 gram recon soln (1 source) Start: 10-13-2024 End: 10-14-2024 peg 3350-sod sulf,dbcx-ktc-gfh 178.7-7.3-0.5 gram recon soln Indications: Positive fecal [...] 11-01-2024 Chronic Other aftercare (1 source) Other residential (current) drug therapy; Translations: [OTH SENIOR CARE [...] bacterial skin contaminants 2 Days PERFORMED BY: [place] [id number] PATHOLOGIST ADMISSION NURSE ANDRY WEIR M.D. Normal [facility] Comment on above: Performed By: #### T PO, C3, CHROMATIN, C4, THYGLOB AB, CH50, ROSS #### [facility] , Urine cultureOrdered By: Halima Mccarty on 08-13-2025 Bacteria identified Cx Nom (U) 2 Days [facility] ROSS Antinuclear Antibodieson 02-01-2025 Antinuclear Abs, IFA Negative Normal . [facility] Comment on above: Result Comment: Nega tive <1:80 Borderline 1:80 Positive >1:80 ICAP nomenclature: AC-0 For more information about Hep-2 cell patterns use ANApatterns.org, the official website for the International Consensus on Antinuclear Antibody (ROSS) Patterns (ICAP). Performed at: [facility] [id number] Jazz Singer: Bowen Mcleod PhD, Phone: [phone] Performed By: #### T PO, C3, CHROMATIN, C4, THYGLOB AB, CH50, ROSS #### [facility] , Alanine aminotransferase [En zymatic activity/volume] in Serum or PlasmaOrdered By: Carol Vidal on 02-01-2025 ALT [Catalytic activity/Vol] Alanine aminotransferase [Enzymatic activity/volume] in Serum or Plasma 7-52 [facility] Albumin [Mass/volume] in Ser um or Plasma by Bromocresol green (BCG) dye binding methoOrdered By: Carol Vidal on 02-01-2025 Albumin BCG dye [Mass/Vol] Albumin [Mass/volume] in Serum or Plasma by Bromocresol green (BCG) dye binding metho 3.5-5.7 [facility] Aldolaseon 02-01-2025 Aldolase 4.0 U/L Normal 3.3-10.3 [facility] Comment on above: Result Comment: Perf ormed at: [address] [id number] Jazz Singer: Bowen Mcleod PhD, Phone: [phone] PERFORMED BY: [facility] [address] [place] [address] PATHOLOGIST ADMISSION NURSE NADYA FREDERICK M.D. Performed By: #### T PO, C3, CHROMATIN, C4, THYGLOB AB, CH50, ROSS #### [facility] , Alkaline phosphatase [Enzyma tic activity/volume] in Serum or PlasmaOrdered By: Carol Vidal on 02-01-2025 ALP [Catalytic activity/Vol] Alkaline phosphatase [Enzymatic activity/volume] in Serum or Plasma 34-104 [facility] Antithyroglobulin Abon 02-01 Antithyroglobulin Ab <1.0 Normal 0.0-0.9 [facility] Comment on above: Result Comment: Thyr oglobulin Antibody measured by [employer] Methodology It should be noted that the presence of thyroglobulin antibodies may not be pathogenic nor diagnostic, especially at very low levels. The assay grease worker has found that four percent of individuals without evidence of thyroid disease or autoimmunity will have positive TgAb levels up to 4 IU/mL. Performed at: [facility] [place] [id number] Jazz Singer: Bowen Mcleod PhD, Phone: [phone] Performed By: #### T PO, C3, CHROMATIN, C4, THYGLOB AB, CH50, ROSS #### [facility] , Appearance of UrineOrdered B y: Carol Vidal on 02-01-2025 Appearance (U) Urine appearance Clear [facility] Aspartate aminotransferase [ Enzymatic activity/volume] in Serum or PlasmaOrdered By: Carol Vidal on 02-01-2025 AST [Catalytic activity/Vol] Aspartate aminotransferase [Enzymatic activity/volume] in Serum or Plasma 13-39 [facility] Bacteria [Presence] in Urine by AutomatedOrdered By: Carol Vidal on 02-01-2025 Bacteria Auto Ql (U) Bacteria [Presence] in Urine by Automated None Seen [facility] Basophils Auto (Bld) [#/Vol] Ordered By: Carol Vidal on 02-01-2025 Basophils (Bld) [#/Vol] Automated basophil count 0.0-0.2 [facility] Basophils/100 WBC Auto (Bld) Ordered By: Carol Vidal on 02-01-2025 Basophils/100 WBC (Bld) Automated basophil % . [facility] Bilirubin Test strip Ql (U)O rdered By: Carol Vidal on 02-01-2025 Bilirubin Ql (U) Bilirubin.total [Pre sence] in Urine by Test strip Negative [facility] Bilirubin.total [Mass/volume ] in Serum or PlasmaOrdered By: Carol Vidal on 02-01-2025 Bilirubin [Mass/Vol] Bilirubin.total [Mass/volume] in Serum or Plasma High 0.3-1.0 [facility] Comment on above: Samples from patient s who have taken Naproxen have shown spurious elevation in Total Bilirubin levels. A metabolite of Naproxen, O-desmethylnaproxen, has been shown to interfere with the Amelie method for measuring Total Bilirubin. C reactive protein [Mass/vol ume] in Serum or PlasmaOrdered By: Carol Vidal on 02-01-2025 CRP [Mass/Vol] C reactive protein [Mass/volume] in Serum or Plasma 0.0-0.5 [facility] C-Reactive Proteinon 025 CRP [Mass/Vol] mg/L Normal 0.0-0.5 [facility] Comment on above: Performed By: #### T PO, C3, CHROMATIN, C4, THYGLOB AB, CH50, ROSS #### [facility] , Calcium [Mass/volume] in Ser um or PlasmaOrdered By: Carol Vidal on 02-01-2025 Calcium [Mass/Vol] Calcium [Mass/volume ] in Serum or Plasma 8.6-10.3 [facility] Carbon dioxide, total [Moles /volume] in Serum or PlasmaOrdered By: Carol Vidal on 02-01-2025 CO2 [Moles/Vol] Carbon dioxide, tota l [Moles/volume] in Serum or Plasma 21.0-31.0 [facility] Chloride [Moles/volume] in S altagracia or PlasmaOrdered By: Carol Vidal on 02-01-2025 Chloride [Moles/Vol] Chloride [Moles/vol ume] in Serum or Plasma 98-107 [facility] Chromatin Antibodyon 025 Chromatin Antibody <0.2 Normal 0.0-0.9 [facility] Comment on above: Result Comment: Perf ormed at: - [facility] [place] [id number] [place], [place] [id number] Jazz Singer: Bowen Mcleod PhD, Phone: [phone] PERFORMED BY: [address] [address] PATHOLOGIST ADMISSION NURSE NADYA FREDERICK M.D. Performed By: #### T PO, C3, CHROMATIN, C4, THYGLOB AB, CH50, ROSS #### [facility] , Coagulation Profileon 2024 aPTT Coag (Bld) [Time] 29.2 s Normal 25.1-36.5 [facility] Comment on above: Result Comment: A he matocrit value greater than 55% may lead to inaccurate results in coagulation testing. Patients having hematocrit values >55% require a special collection tube for coagulation studies. Please contact the laboratory at [phone] for redraw instructions. PERFORMED BY: [facility] [address] PATHOLOGIST ADMISSION NURSE NADYA FREDERICK M.D. Performed By: #### T PO, C3, CHROMATIN, C4, THYGLOB AB, CH50, ROSS #### [facility] , INR Coag (PPP) [Relative time] 0.9 {INR} Normal [facility] Comment on above: Result Comment: [...] (PPP) [Time] 10.8 s Normal 9.0-12.9 [facility] Comment on above: Result Comment: A he matocrit value greater than 55% may lead to inaccurate results in coagulation testing. Patients having hematocrit values >55% require a special collection tube for coagulation studies. Please contact the laboratory at [phone] for redraw instructions. Performed By: #### T PO, C3, CHROMATIN, C4, THYGLOB AB, CH50, ROSS #### [facility] , Color Auto (U)Ordered By: Anna Vidal on 02-01-2025 Color (U) Color of Urine by Auto Yellow [facility] Complement C3on 02-01-2025 Complement C3 135 mg/dL Normal 82-167 [facility] Comment on above: Result Comment: Perf ormed at: - [facility] [address] [id number] Jazz Singer: Bowen Mcleod PhD, Phone: [phone] Performed By: #### T PO, C3, CHROMATIN, C4, THYGLOB AB, CH50, ROSS #### [facility] , Complement C4on 02-01-2025 Complement C4 21 mg/dL Normal 12-38 [facility] Comment on above: Performed By: #### T PO, C3, CHROMATIN, C4, THYGLOB AB, CH50, ROSS #### [facility] , Complement Total (CH50)on Complement Total (CH50) 57 Normal >41 [facility] Comment on above: Result Comment: [...] determine out of range values. Performed at: [address] [id number] Jazz Singer: Bowen Mcleod PhD, Phone: [phone] PERFORMED BY: [facility] [address] [place] [id number] PATHOLOGIST ADMISSION NURSE NADYA FREDERICK M.D. Performed By: #### T PO, C3, CHROMATIN, C4, THYGLOB AB, CH50, ROSS #### [facility] , Complete Blood Count Auto Di ffon 02-01-2025 Basophils (Bld) [#/Vol] 0.0 10*3/uL Normal 0.0-0.2 [facility] Comment on above: Performed By: #### T PO, C3, CHROMATIN, C4, THYGLOB AB, CH50, ROSS #### [facility] , Basophils/100 WBC (Bld) 0.3 % Normal . [facility] Comment on above: Performed By: #### T PO, C3, CHROMATIN, C4, THYGLOB AB, CH50, ROSS #### [facility] , Eosinophils (Bld) [#/Vol] 0.1 10*3/uL Normal 0.0-0.45 [facility] Comment on above: Performed By: #### T PO, C3, CHROMATIN, C4, THYGLOB AB, CH50, ROSS #### [facility] , Eosinophils/100 WBC (Bld) 1.3 % Normal . [facility] Comment on above: Performed By: #### T PO, C3, CHROMATIN, C4, THYGLOB AB, CH50, ROSS #### [facility] , Erythrocyte distribution width (RBC) [Ratio] 12.5 % Normal 11.9-15.3 [facility] Comment on above: Performed By: #### T PO, C3, CHROMATIN, C4, THYGLOB AB, CH50, ROSS #### [facility] , Hematocrit (Bld) [Volume fraction] 39.2 % Normal 34.0-46.4 [facility] Comment on above: Performed By: #### T PO, C3, CHROMATIN, C4, THYGLOB AB, CH50, ROSS #### [facility] , Hemoglobin (Bld) [Mass/Vol] 13.5 g/dL Normal 11.8-15.4 [facility] Comment on above: Performed By: #### T PO, C3, CHROMATIN, C4, THYGLOB AB, CH50, ROSS #### [facility] , Lymphocytes (Bld) [#/Vol] 3.6 10*3/uL Normal 1.00-4.8 [facility] Comment on above: Performed By: #### T PO, C3, CHROMATIN, C4, THYGLOB AB, CH50, ROSS #### [facility] , Lymphocytes/100 WBC (Bld) 50.6 % Normal . [facility] Comment on above: Performed By: #### T PO, C3, CHROMATIN, C4, THYGLOB AB, CH50, ROSS #### [facility] , MCH (RBC) [Entitic mass] 31.1 pg Normal 24.7-34.3 [facility] Comment on above: Performed By: #### T PO, C3, CHROMATIN, C4, THYGLOB AB, CH50, ROSS #### [facility] , MCV (RBC) [Entitic vol] 90.2 fL Normal 80-100 [facility] Comment on above: Performed By: #### T PO, C3, CHROMATIN, C4, THYGLOB AB, CH50, ROSS #### [facility] , Mean Corpuscular HGB Conc 34.5 g/dL Normal 32.0-35.0 [facility] Comment on above: Performed By: #### T PO, C3, CHROMATIN, C4, THYGLOB AB, CH50, ROSS #### [facility] , Monocytes (Bld) [#/Vol] 0.4 10*3/uL Normal 0.0-0.8 [facility] Comment on above: Performed By: #### T PO, C3, CHROMATIN, C4, THYGLOB AB, CH50, ROSS #### [facility] , Monocytes/100 WBC (Bld) 6.1 % Normal . [facility] Comment on above: Performed By: #### T PO, C3, CHROMATIN, C4, THYGLOB AB, CH50, ROSS #### [facility] , Neutrophils (Bld) [#/Vol] 3.0 10*3/uL Normal 1.8-7.7 [facility] Comment on above: Performed By: #### T PO, C3, CHROMATIN, C4, THYGLOB AB, CH50, ROSS #### [facility] , Neutrophils/100 WBC (Bld) 41.7 % Normal . [facility] Comment on above: Performed By: #### T PO, C3, CHROMATIN, C4, THYGLOB AB, CH50, ROSS #### [facility] , NRBC% 0.0 /100{WBC} Normal 0-0.5 [facility] Comment on above: Performed By: #### T PO, C3, CHROMATIN, C4, THYGLOB AB, CH50, ROSS #### [facility] , Platelet mean volume (Bld) [Entitic vol] 9.1 fL Normal 6.3-10.7 [facility] Comment on above: Performed By: #### T PO, C3, CHROMATIN, C4, THYGLOB AB, CH50, ROSS #### [facility] , Platelets (Bld) [#/Vol] 251 10*3/uL Normal 150-450 [facility] Comment on above: Performed By: #### T PO, C3, CHROMATIN, C4, THYGLOB AB, CH50, ROSS #### [facility] , RBC (Bld) [#/Vol] 4.34 10*6/uL Normal 3.60-5.00 [facility] Comment on above: Performed By: #### T PO, C3, CHROMATIN, C4, THYGLOB AB, CH50, ROSS #### [facility] , WBC (Bld) [#/Vol] 7.2 10*3/uL Normal 3.8-11.6 [facility] Comment on above: Performed By: #### T PO, C3, CHROMATIN, C4, THYGLOB AB, CH50, ROSS #### [facility] , Comprehensive Metabolic Pane lilly 02-01-2025 Albumin [Mass/Vol] 4.7 g/dL Normal 3.5-5.7 [facility] Comment on above: Performed By: #### T PO, C3, CHROMATIN, C4, THYGLOB AB, CH50, ROSS #### [facility] , Albumin/Globulin [Mass ratio] 2.0 {ratio} Normal [facility] Comment on above: Performed By: #### T PO, C3, CHROMATIN, C4, THYGLOB AB, CH50, ROSS #### [facility] , ALP [Catalytic activity/Vol] 54 U/L Normal 34-104 [facility] Comment on above: Performed By: #### T PO, C3, CHROMATIN, C4, THYGLOB AB, CH50, ROSS #### [facility] , ALT [Catalytic activity/Vol] 14 U/L Normal 7-52 [facility] Comment on above: Performed By: #### T PO, C3, CHROMATIN, C4, THYGLOB AB, CH50, ROSS #### [facility] , Anion gap [Moles/Vol] 9.2 mmol/L Normal 6.0-15.0 [facility] Comment on above: Performed By: #### T PO, C3, CHROMATIN, C4, THYGLOB AB, CH50, ROSS #### [facility] , AST [Catalytic activity/Vol] 15 U/L Normal 13-39 [facility] Comment on above: Performed By: #### T PO, C3, CHROMATIN, C4, THYGLOB AB, CH50, ROSS #### [facility] , Bilirubin [Mass/Vol] 1.3 mg/dL High 0.3-1.0 [facility] Comment on above: Result Comment: Samp les from patients who have taken Naproxen have shown spurious elevation in Total Bilirubin levels. A metabolite of Naproxen, O-desmethylnaproxen, has been shown to interfere with the Jendrassik-Grof method for measuring Total Bilirubin. Performed By: #### T PO, C3, CHROMATIN, C4, THYGLOB AB, CH50, ROSS #### [facility] , Calcium [Mass/Vol] 9.5 mg/dL Normal 8.6-10.3 [facility] Comment on above: Performed By: #### T PO, C3, CHROMATIN, C4, THYGLOB AB, CH50, ROSS #### [facility] , Chloride [Moles/Vol] 104 mmol/L Normal 98-107 [facility] Comment on above: Performed By: #### T PO, C3, CHROMATIN, C4, THYGLOB AB, CH50, ROSS #### [facility] , CO2 [Moles/Vol] 29.5 mmol/L Normal 21.0-31.0 [facility] Comment on above: Performed By: #### T PO, C3, CHROMATIN, C4, THYGLOB AB, CH50, ROSS #### [facility] , Creatinine [Mass/Vol] 0.73 mg/dL Normal 0.60-1.20 [facility] Comment on above: Performed By: #### T PO, C3, CHROMATIN, C4, THYGLOB AB, CH50, ROSS #### [facility] , GFR/1.73 sq M.predicted MDRD (S/P/Bld) [Vol rate/Area] mL/min/{1.73_m2} Normal [facility] Comment on above: Performed By: #### T PO, C3, CHROMATIN, C4, THYGLOB AB, CH50, ROSS #### [facility] , Globulin (S) [Mass/Vol] 2.3 g/dL Normal [facility] Comment on above: Performed By: #### T PO, C3, CHROMATIN, C4, THYGLOB AB, CH50, ROSS #### [facility] , Glucose [Mass/Vol] 79 mg/dL Normal 70-100 [facility] Comment on above: Result Comment: [place] Glucose Reference Range is dependent on time and content of last meal. Glucose of more than 200 mg/dL in a nonstressed, ambulatory subject supports the diagnosis of Diabetes Mellitus. ADA recommended reference range Performed By: #### T PO, C3, CHROMATIN, C4, THYGLOB AB, CH50, ROSS #### [facility] , Potassium [Moles/Vol] 3.7 mmol/L Normal 3.5-5.1 [facility] Comment on above: Performed By: #### T PO, C3, CHROMATIN, C4, THYGLOB AB, CH50, ROSS #### [facility] , Protein [Mass/Vol] 7.0 g/dL Normal 6.4-8.9 [facility] Comment on above: Performed By: #### T PO, C3, CHROMATIN, C4, THYGLOB AB, CH50, ROSS #### [facility] , Sodium [Moles/Vol] 139 mmol/L Normal 136-145 [facility] Comment on above: Performed By: #### T PO, C3, CHROMATIN, C4, THYGLOB AB, CH50, ROSS #### [facility] , Urea nitrogen [Mass/Vol] 9 mg/dL Normal 7-25 [facility] Comment on above: Performed By: #### T PO, C3, CHROMATIN, C4, THYGLOB AB, CH50, ROSS #### [facility] , Creatine Kinaseon 02-01-2025 CK [Catalytic activity/Vol] 77 U/L Normal 30-223 [facility] Comment on above: Result Comment: PERF ORMED BY: [facility] [address] PATHOLOGIST ADMISSION NURSE NADYA FREDERICK M.D. Performed By: #### T PO, C3, CHROMATIN, C4, THYGLOB AB, CH50, ROSS #### [facility] , Creatine kinase [Enzymatic a ctivity/volume] in Serum or PlasmaOrdered By: Carol Vidal on 02-01-2025 CK [Catalytic activity/Vol] Creatine kinase [Enzymatic activity/volume] in Serum or Plasma 30-223 [facility] Creatinine [Mass/volume] in Serum or PlasmaOrdered By: Carol Vidal on 02-01-2025 Creatinine [Mass/Vol] Creatinine [Mass/v olume] in Serum or Plasma 0.60-1.20 [facility] Dipstick and Microscopicon 0 02-01-2025 Appearance (U) Clear Normal Clear [facility] Comment on above: Order Comment: Name Collection Type:: Clean-Voided Midstream Performed By: #### T PO, C3, CHROMATIN, C4, THYGLOB AB, CH50, ROSS #### [facility] , Bacteria,Urine None Seen Normal None Seen [facility] Comment on above: Order Comment: Name Collection Type:: Clean-Voided Midstream Performed By: #### T PO, C3, CHROMATIN, C4, THYGLOB AB, CH50, ROSS #### [facility] , Bilirubin,Urine Negative Normal Negative [facility] Comment on above: Order Comment: Name Collection Type:: Clean-Voided Midstream Performed By: #### T PO, C3, CHROMATIN, C4, THYGLOB AB, CH50, ROSS #### [facility] , Color (U) Yellow Normal Yellow [facility] Comment on above: Order Comment: Name Collection Type:: Clean-Voided Midstream Performed By: #### T PO, C3, CHROMATIN, C4, THYGLOB AB, CH50, ROSS #### [facility] , Glucose Ql (U) Normal Normal Normal [facility] Comment on above: Order Comment: Name Collection Type:: Clean-Voided Midstream Performed By: #### T PO, C3, CHROMATIN, C4, THYGLOB AB, CH50, ROSS #### [facility] , Hyaline Casts,Urine None Normal 0-8 [facility] Comment on above: Order Comment: Name Collection Type:: Clean-Voided Midstream Performed By: #### T PO, C3, CHROMATIN, C4, THYGLOB AB, CH50, ROSS #### [facility] , Ketones Ql (U) Negative Normal Negative [facility] Comment on above: Order Comment: Name Collection Type:: Clean-Voided Midstream Performed By: #### T PO, C3, CHROMATIN, C4, THYGLOB AB, CH50, ROSS #### [facility] , Leukocyte esterase Test strip Ql (U) Negative Normal Negative [facility] Comment on above: Order Comment: Name Collection Type:: Clean-Voided Midstream Performed By: #### T PO, C3, CHROMATIN, C4, THYGLOB AB, CH50, ROSS #### [facility] , Mucus,Urine 3+ Critically abnormal [facility] Comment on above: Order Comment: Name Collection Type:: Clean-Voided Midstream Result Comment: PERF ORMED BY: [place] [address] [place] [address] PATHOLOGIST ADMISSION NURSE NADYA FREDERICK M.D. Performed By: #### T PO, C3, CHROMATIN, C4, THYGLOB AB, CH50, ROSS #### [facility] , Nitrite,Urine Negative Normal Negative [facility] Comment on above: Order Comment: Name Collection Type:: Clean-Voided Midstream Performed By: #### T PO, C3, CHROMATIN, C4, THYGLOB AB, CH50, ROSS #### [facility] , Occult Blood,Urine Negative Normal Negative [facility] Comment on above: Order Comment: Name Collection Type:: Clean-Voided Midstream Performed By: #### T PO, C3, CHROMATIN, C4, THYGLOB AB, CH50, ROSS #### [facility] , pH (U) 6.0 [pH] Normal 5.0-9.0 [facility] Comment on above: Order Comment: Name Collection Type:: Clean-Voided Midstream Performed By: #### T PO, C3, CHROMATIN, C4, THYGLOB AB, CH50, ROSS #### [facility] , Protein,Urine Trace High Negative [facility] Comment on above: Order Comment: Name Collection Type:: Clean-Voided Midstream Performed By: #### T PO, C3, CHROMATIN, C4, THYGLOB AB, CH50, ROSS #### [facility] , RBC,Urine 1-2 Normal 0-4 [facility] Comment on above: Order Comment: Name Collection Type:: Clean-Voided Midstream Performed By: #### T PO, C3, CHROMATIN, C4, THYGLOB AB, CH50, ROSS #### [facility] , Specificy [place],Urine 1.021 Normal 1.001-1.03 0 [facility] Comment on above: Order Comment: Name Collection Type:: Clean-Voided Midstream Performed By: #### T PO, C3, CHROMATIN, C4, THYGLOB AB, CH50, ROSS #### [facility] , Squamous Epithelial Cell,Urine 1-2 Normal 0-2 [facility] Comment on above: Order Comment: Name Collection Type:: Clean-Voided Midstream Performed By: #### T PO, C3, CHROMATIN, C4, THYGLOB AB, CH50, ROSS #### [facility] , Urobilinogen,Urine Normal Normal Normal [facility] Comment on above: Order Comment: Name Collection Type:: Clean-Voided Midstream Performed By: #### T PO, C3, CHROMATIN, C4, THYGLOB AB, CH50, ROSS #### [facility] , WBC,Urine 3-4 Normal 0-4 [facility] Comment on above: Order Comment: Name Collection Type:: Clean-Voided Midstream Performed By: #### T PO, C3, CHROMATIN, C4, THYGLOB AB, CH50, ROSS #### [facility] , Eosinophils Auto (Bld) [#/Vo l]Ordered By: Carol Vidal on 02-01-2025 Eosinophils (Bld) [#/Vol] Automated eosinophil count 0.0-0.45 [facility] Eosinophils/100 WBC Auto (Bl d)Ordered By: Carol Vidal on 02-01-2025 Eosinophils/100 WBC (Bld) Automated eosinophil % . [facility] Epithelial cells.squamous [# /area] in Urine sediment by Automated countOrdered By: Carol Vidal on 02-01-2025 Epithelial cells.squamous Auto (Urine sed) [#/Area] Epithelial cells.squamous [#/area] in Urine sediment by Automated count 0-2 [facility] Erythrocyte Sedimentation Ra doroteo 02-01-2025 ESR (Bld) [Velocity] 8 mm/h Normal 0-19 [facility] Comment on above: Result Comment: PERF ORMED BY: [facility] [address] [place] [address] PATHOLOGIST ADMISSION NURSE NADYA FREDERICK M.D. Performed By: #### T PO, C3, CHROMATIN, C4, THYGLOB AB, CH50, ROSS #### [facility] , Erythrocyte distribution wid th Auto (RBC) [Ratio]Ordered By: Carol Vidal on 02-01-2025 Erythrocyte distribution width (RBC) [Ratio] Erythrocyte distribution width [Ratio] by Automated count 11.9-15.3 [facility] Erythrocyte sedimentation ra te by Photometric methodOrdered By: Caorl Vidal on 02-01-2025 ESR Photometric method (Bld) [Velocity] Erythrocyte sedimentation rate by Photometric method 0-19 [facility] Erythrocytes [#/area] in Uri ne sediment by Automated countOrdered By: Carol Vidal on 02-01-2025 RBC Auto (Urine sed) [#/Area] Erythrocytes [#/area] in Urine sediment by Automated count 0-4 [facility] Free T4 (Free Thyroxine)on 0 02-01-2025 Free T4 [Mass/Vol] 0.96 ng/dL Normal 0.61-1.12 [facility] Comment on above: Performed By: #### T PO, C3, CHROMATIN, C4, THYGLOB AB, CH50, ROSS #### [facility] , Globulin Calc (S) [Mass/Vol] Ordered By: Carol Vidal on 02-01-2025 Globulin (S) [Mass/Vol] Serum globulin measurement by calculation (mass/volume) [facility] Glucose [Mass/volume] in Ser um or PlasmaOrdered By: Carol Vidal on 02-01-2025 Glucose [Mass/Vol] Glucose [Mass/volume ] in Serum or Plasma 70-100 [facility] Comment on above: ADA [...] [Mass/volume] in Urine by Test strip Normal [facility] Hematocrit Auto (Bld) [Volum e fraction]Ordered By: Carol Vidal on 02-01-2025 Hematocrit (Bld) [Volume fraction] Hematocrit [Volume Fraction] of Blood by Automated count 34.0-46.4 [facility] Hemoglobin Test strip Ql (U) Ordered By: Carol Vidal on 02-01-2025 Hemoglobin Ql (U) Hemoglobin [Presence ] in Urine by Test strip Negative [facility] Hemoglobin [Mass/volume] in BloodOrdered By: Carol Vidal on 02-01-2025 Hemoglobin (Bld) [Mass/Vol] Hemoglobin [Mass/volume] in Blood 11.8-15.4 [facility] Hyaline casts [#/area] in Ur ine sediment by Automated countOrdered By: Carol Vidal on 02-01-2025 Hyaline casts Auto (Urine sed) [#/Area] Hyaline casts [#/area] in Urine sediment by Automated count 0-8 [facility] INR in Platelet poor plasma by Coagulation assayOrdered By: Carol Vidal on 02-01-2025 INR Coag (PPP) [Relative time] INR in Platelet poor plasma by Coagulation assay [facility] Comment on above: INR Therapeutic Rang [...] Immunofixation, (ASHLEY), Urine Comment Normal . [facility] Comment on above: Result Comment: No m onoclonality detected. Performed at: [facility] [id number] Jazz Singer: Bowen Mcleod PhD, Phone: [phone] Performed By: #### T PO, C3, CHROMATIN, C4, THYGLOB AB, CH50, ROSS #### [facility] , Immunofixation,Serumon 02-01 Immunofixation, Serum Comment Normal . [facility] Comment on above: Result Comment: No m onoclonality detected. Performed By: #### T PO, C3, CHROMATIN, C4, THYGLOB AB, CH50, ROSS #### [facility] , Immunoglobulin A, Serum 201 mg/dL Normal 87-352 [facility] Comment on above: Performed By: #### T PO, C3, CHROMATIN, C4, THYGLOB AB, CH50, ROSS #### [facility] , Immunoglobulin G 983 mg/dL Normal 586-1602 [facility] Comment on above: Performed By: #### T PO, C3, CHROMATIN, C4, THYGLOB AB, CH50, ROSS #### [facility] , Immunoglobulin M, Serum 75 mg/dL Normal 26-217 [facility] Comment on above: Result Comment: Perf ormed at: - [facility] [place] [id number] Jazz Singer: Bowen Mcleod PhD, Phone: [phone] Performed By: #### T PO, C3, CHROMATIN, C4, THYGLOB AB, CH50, ROSS #### [facility] , Ketones Test strip Ql (U)Ord ered By: Carol Vidal on 02-01-2025 Ketones Ql (U) Ketones [Presence] i n Urine by Test strip Negative [facility] Leukocyte esterase [Presence ] in Urine by Test stripOrdered By: Carol Vidal on 02-01-2025 Leukocyte esterase Test strip Ql (U) Leukocyte esterase [Presence] in Urine by Test strip Negative [facility] Leukocytes [#/area] in Urine sediment by Automated countOrdered By: Carol Vidal on 02-01-2025 WBC Auto (Urine sed) [#/Area] Leukocytes [#/area] in Urine sediment by Automated count 0-4 [facility] Leukocytes [#/volume] correc radha for nucleated erythrocytes in Blood by Automated counOrdered By: Carol Vidal on 02-01-2025 WBC corrected for nucl RBC Auto (Bld) [#/Vol] Leukocytes [#/volume] corrected for nucleated erythrocytes in Blood by Automated coun 3.8-11.6 [facility] Lupus Anticoagulant Compon 0 02-01-2025 Dilute Prothrombin Time (dPt) 38.3 Normal 0.0-47.6 [facility] Comment on above: Performed By: #### L UPANTCOAG #### [facility] , dPT Confirm Ratio 0.76 Normal 0.00-1.34 [facility] Comment on above: Performed By: #### L UPANTCOAG #### [facility] , DRVVT Lupus 34.4 Normal 0.0-47.0 [facility] Comment on above: Performed By: #### L UPANTCOAG #### [facility] , Interpretation Comment: Normal . [facility] Comment on above: Result Comment: No l upus anticoagulant was detected. Performed at: - [facility] [id number] Jazz Singer: Raegan Gong MD, Phone: [phone] PERFORMED BY: [facility] [address] [place] [address] PATHOLOGIST ADMISSION NURSE NADYA FREDERICK M.D. Performed By: #### L UPANTCOAG #### [facility] , PTT-LA 42.7 Normal 0.0-43.5 [facility] Comment on above: Performed By: #### L UPANTCOAG #### [facility] , Thrombin Time 14.6 Normal 0.0-23.0 [facility] Comment on above: Performed By: #### L UPANTCOAG #### [facility] , Lymphocytes Auto (Bld) [#/Vo l]Ordered By: Carol Vidal on 02-01-2025 Lymphocytes (Bld) [#/Vol] Lymphocytes [#/volume] in Blood by Automated count 1.00-4.8 [facility] Lymphocytes/100 WBC Auto (Bl d)Ordered By: Carol Vidal on 02-01-2025 Lymphocytes/100 WBC (Bld) Lymphocytes/100 leukocytes in Blood by Automated count . [facility] MCH Auto (RBC) [Entitic mass ]Ordered By: Carol Vidal on 02-01-2025 MCH (RBC) [Entitic mass] MCH [Entitic mass] by Automated count 24.7-34.3 [facility] MCHC Auto (RBC) [Mass/Vol]Or dered By: Carol Vidal on 02-01-2025 MCHC (RBC) [Mass/Vol] MCHC [Mass/volume] by Automated count 32.0-35.0 [facility] MCV Auto (RBC) [Entitic vol] Ordered By: Carol Vidal on 02-01-2025 MCV (RBC) [Entitic vol] MCV [Entitic volume] by Automated count 80-100 [facility] Monocytes Auto (Bld) [#/Vol] Ordered By: Carol Vidal on 02-01-2025 Monocytes (Bld) [#/Vol] Automated blood monocyte count 0.0-0.8 [facility] Monocytes/100 WBC Auto (Bld) Ordered By: Carol Vidal on 02-01-2025 Monocytes/100 WBC (Bld) Automated monocyte % . [facility] Mucus [Presence] in Urine by AutomatedOrdered By: Carol Vidal on 02-01-2025 Mucus Auto Ql (U) Mucus [Presence] in Urine by Automated Abnormal [facility] Neutrophils Auto (Bld) [#/Vo l]Ordered By: Carol Vidal on 02-01-2025 Neutrophils (Bld) [#/Vol] Neutrophils [#/volume] in Blood by Automated count 1.8-7.7 [facility] Neutrophils/100 WBC Auto (Bl d)Ordered By: Carol Vidal on 02-01-2025 Neutrophils/100 WBC (Bld) Automated neutrophil % . [facility] Nitrite Test strip Ql (U)Ord ered By: Carol Vidal on 02-01-2025 Nitrite Ql (U) Nitrite [Presence] i n Urine by Test strip Negative [facility] No Panel InformationOrdered By: Carol Vidal on 02-01-2025 Estimated GFR (CKD-EPI) > 60.0 mL/Min [facility] Creatinine Clearance (Chem N/A [facility] Nucleated erythrocytes [Pres ence] in Blood by Automated countOrdered By: Carol Vidal on 02-01-2025 Nucleated RBC Auto Ql (Bld) Nucleated erythrocytes [Presence] in Blood by Automated count 0-0.5 [facility] Platelet mean volume Auto (B ld) [Entitic vol]Ordered By: Carol Vidal on 02-01-2025 Platelet mean volume (Bld) [Entitic vol] Platelet mean volume [Entitic volume] in Blood by Automated count 6.3-10.7 [facility] Platelets Auto (Bld) [#/Vol] Ordered By: Carol Vidal on 02-01-2025 Platelets (Bld) [#/Vol] Platelets [#/volume] in Blood by Automated count 150-450 [facility] Potassium [Moles/volume] in Serum or PlasmaOrdered By: Carol Vidal on 02-01-2025 Potassium [Moles/Vol] Potassium [Moles/v olume] in Serum or Plasma 3.5-5.1 [facility] Protein Electro, Random Urin michael 02-01-2025 Albumin, Urine 41.6 % Normal . [facility] Comment on above: Performed By: #### T PO, C3, CHROMATIN, C4, THYGLOB AB, CH50, ROSS #### [facility] , Pexva-1-Vmwqyfts, Urine 1.3 % Normal . [facility] Comment on above: Performed By: #### T PO, C3, CHROMATIN, C4, THYGLOB AB, CH50, ROSS #### [facility] , Rnxvr-6-Dakemzgf, Urine 22.3 % Normal . [facility] Comment on above: Performed By: #### T PO, C3, CHROMATIN, C4, THYGLOB AB, CH50, ROSS #### [facility] , Beta Globulin, Urine 24.6 % Normal . [facility] Comment on above: Performed By: #### T PO, C3, CHROMATIN, C4, THYGLOB AB, CH50, ROSS #### [facility] , Gamma Globulin, Urine 10.1 % Normal . [facility] Comment on above: Performed By: #### T PO, C3, CHROMATIN, C4, THYGLOB AB, CH50, ROSS #### [facility] , M-Saleem % Not Observed Normal Not Observed [facility] Comment on above: Performed By: #### T PO, C3, CHROMATIN, C4, THYGLOB AB, CH50, ROSS #### [facility] , Please Note: Comment Normal . [facility] Comment on above: Result Comment: Prot ein electrophoresis scan will follow via computer, mail, or program director delivery. PERFORMED BY: [facility] [place] [address] PATHOLOGIST ADMISSION NURSE NADYA FREDERICK M.D. Performed By: #### T PO, C3, CHROMATIN, C4, THYGLOB AB, CH50, ROSS #### [facility] , Protein (U) [Mass/Vol] 23.9 mg/dL Normal Not Estab. [facility] Comment on above: Performed By: #### T PO, C3, CHROMATIN, C4, THYGLOB AB, CH50, ROSS #### [facility] , Protein Electrophoresis, Ser umon 02-01-2025 Albumin [Mass/Vol] 4.2 g/dL Normal 2.9-4.4 [facility] Comment on above: Performed By: #### T PO, C3, CHROMATIN, C4, THYGLOB AB, CH50, ROSS #### [facility] , Albumin/Globulin [Mass ratio] 1.6 {ratio} Normal 0.7-1.7 [facility] Comment on above: Performed By: #### T PO, C3, CHROMATIN, C4, THYGLOB AB, CH50, ROSS #### [facility] , Ssbtc-6-Qsrnnaym 0.2 g/dL Normal 0.0-0.4 [facility] Comment on above: Performed By: #### T PO, C3, CHROMATIN, C4, THYGLOB AB, CH50, ROSS #### [facility] , Iebyq-4-Eecamtyx 0.6 g/dL Normal 0.4-1.0 [facility] Comment on above: Performed By: #### T PO, C3, CHROMATIN, C4, THYGLOB AB, CH50, ROSS #### [facility] , Beta Globulin 1.0 g/dL Normal 0.7-1.3 [facility] Comment on above: Performed By: #### T PO, C3, CHROMATIN, C4, THYGLOB AB, CH50, ROSS #### [facility] , Gamma Globulin 0.8 g/dL Normal 0.4-1.8 [facility] Comment on above: Performed By: #### T PO, C3, CHROMATIN, C4, THYGLOB AB, CH50, ROSS #### [facility] , Globulin (S) [Mass/Vol] 2.6 g/dL Normal 2.2-3.9 [facility] Comment on above: Performed By: #### T PO, C3, CHROMATIN, C4, THYGLOB AB, CH50, ROSS #### [facility] , M-Saleem Not Observed Normal Not Observed [facility] Comment on above: Performed By: #### T PO, C3, CHROMATIN, C4, THYGLOB AB, CH50, ROSS #### [facility] , Protein [Mass/Vol] 6.8 g/dL Normal 6.0-8.5 [facility] Comment on above: Performed By: #### T PO, C3, CHROMATIN, C4, THYGLOB AB, CH50, ROSS #### [facility] , SPE-Note Comment Normal . [facility] Comment on above: Result Comment: Prot ein electrophoresis scan will follow via computer, mail, or program director delivery. Performed at: [address] [id number] Jazz Singer: Bowen Mcleod PhD, Phone: [phone] PERFORMED BY: [facility] [address] [facility] [place] [address] PATHOLOGIST ADMISSION NURSE NADYA FREDERICK M.D. Performed By: #### T PO, C3, CHROMATIN, C4, THYGLOB AB, CH50, ROSS #### [facility] , Protein Test strip (U) [Mass /Vol]Ordered By: Carol Vidal on 02-01-2025 Protein (U) [Mass/Vol] Protein [Mass/vol ume] in Urine by Test strip High Negative [facility] Protein [Mass/volume] in Ser um or PlasmaOrdered By: Carol Vidal on 02-01-2025 Protein [Mass/Vol] Protein [Mass/volume ] in Serum or Plasma 6.4-8.9 [facility] Prothrombin time (PT)Ordered By: Carol Vidal on 02-01-2025 PT Coag (PPP) [Time] Prothrombin time (PT) 9.0- 12.9 [facility] Comment on above: A hematocrit value g reater than 55% may lead to inaccurate results in coagulation testing. Patients having hematocrit values >55% require a special collection tube for coagulation studies. Please contact the laboratory at [phone] for redraw instructions. RBC Auto (Bld) [#/Vol]Ordere d By: Carol Vidal on 02-01-2025 RBC (Bld) [#/Vol] Erythrocytes [#/volu me] in Blood by Automated count 3.60-5.00 [facility] RPR w/rfx to Quant TP Abson 02-01-2025 RPR, Rfx Quant RPR Non-Reactive Normal Non Reactive [facility] Comment on above: Result Comment: Perf ormed at: CB - [facility] [address] [id number] Jazz Singer: Bowen Mcleod PhD, Phone: [phone] PERFORMED BY: [place] [address] PATHOLOGIST ADMISSION NURSE NADYA FREDERICK M.D. Performed By: #### T PO, C3, CHROMATIN, C4, THYGLOB AB, CH50, ROSS #### [facility] , Serum or plasma albumin/glob ulin mass ratioOrdered By: Carol Vidal on 02-01-2025 Albumin/Globulin [Mass ratio] Serum or plasma albumin/globulin mass ratio [facility] Serum or plasma anion gap de terminationOrdered By: Carol Vidal on 02-01-2025 Anion gap [Moles/Vol] Serum or plasma an ion gap determination 6.0-15.0 [facility] Sodium [Moles/volume] in Ser um or PlasmaOrdered By: Carol Vidal on 02-01-2025 Sodium [Moles/Vol] Sodium [Moles/volume ] in Serum or Plasma 136-145 [facility] Specific gravity Test strip (U) [Rel density]Ordered By: Carol Vidal on 02-01-2025 Specific gravity (U) [Rel density] Specific gravity of Urine by Test strip 1.001-1.03 0 [facility] Thyroid Peroxidase Antibodie son 02-01-2025 Thyroid Peroxidase Antibodies 13 [IU]/mL Normal 0-34 [facility] Comment on above: Result Comment: Perf ormed at: - [facility] [address] [id number] Jazz Singer: Bowen Mcleod PhD, Phone: [phone] Performed By: #### T PO, C3, CHROMATIN, C4, THYGLOB AB, CH50, ROSS #### [facility] , Thyroid Stimulating Hormoneo n 02-01-2025 TSH Qn 2.21 m[IU]/L Normal 0.45-5.33 [facility] Comment on above: Result Comment: PERF ORMED BY: [facility] [address] [place] [address] PATHOLOGIST ADMISSION NURSE NADYA FREDERICK M.D. Performed By: #### T PO, C3, CHROMATIN, C4, THYGLOB AB, CH50, ROSS #### [facility] , Thyrotropin [Units/volume] i n Serum or PlasmaOrdered By: Carol Vidal on 02-01-2025 TSH Qn Thyrotropin [Units/v olume] in Serum or Plasma 0.45-5.33 [facility] Thyroxine (T4) free [Mass/vo lume] in Serum or PlasmaOrdered By: Carol Vidal on 02-01-2025 Free T4 [Mass/Vol] Thyroxine (T4) free [Mass/volume] in Serum or Plasma 0.61-1.12 [facility] Urea nitrogen [Mass/volume] in Serum or PlasmaOrdered By: Carol Vidal on 02-01-2025 Urea nitrogen [Mass/Vol] Urea nitrogen [Mass/volume] in Serum or Plasma 7-25 [facility] Urobilinogen Test strip (U) [Mass/Vol]Ordered By: Carol Vidal on 02-01-2025 Urobilinogen (U) [Mass/Vol] Urobilinogen [Mass/volume] in Urine by Test strip Normal [facility] WBC Auto (Bld) [#/Vol]Ordere d By: Carol Vidal on 02-01-2025 WBC (Bld) [#/Vol] Leukocytes [#/volume ] in Blood by Automated count 3.8-11.6 [facility] aPTT in Platelet poor plasma by Coagulation assayOrdered By: Carol Vidal on 02-01-2025 aPTT Coag (PPP) [Time] Activated partial thromboplastin time (aPTT) in platelet poor plasma by coagulation a 25.1-36.5 [facility] Comment on above: A hematocrit value g reater than 55% may lead to inaccurate results in coagulation testing. Patients having hematocrit values >55% require a special collection tube for coagulation studies. Please contact the laboratory at [phone] for redraw instructions. pH Test strip (U)Ordered By: Carol Vidal on 02-01-2025 pH (U) pH of Urine by Test strip 5.0-9.0 [facility] IGP,APTIMA HPV,AGE GDLNon AGE GDLN ACOG TESTING Note . [facility] Comment on above: TESTS RESULT FLAG UN ITS REF RANGE LAB Clinician Provided Cytology Information Source.............Vagina No. of containers..01 ThinPrep Vial Age Algo ACOG Mya... 31 FLAG LEGEND: L-Low Normal,H-High Normal,LL-Alert Low,HH-Alert High <-Panic Low,>-Panic High,A-Abnormal,AA-Critical Abnormal Performed at: 01 =[address] [address] Britta Wang MD, HPV APTIMA Negative Negative [facility] Comment on above: This nucleic acid am plification test detects fourteen high- risk HPV types (16,18,31,33,35,39,45,51,52,56,58,59,66,68) without differentiation. Performed at: =[facility] [id number] Jazz Singer: Britta Wang MD, Phone: [phone] Performed at: [facility] [address] [place] [id number] Jazz Singer: Kristian Waterman MD, Phone: [phone] IGP, APTIMA HPV, RFX 16/18,45 Note . [facility] Comment on above: TESTS RESULT FLAG UN ITS REF RANGE LAB DIAGNOSIS: 02 NEGATIVE FOR INTRAEPITHELIAL LESION OR MALIGNANCY. FUNGAL ORGANISMS MORPHOLOGICALLY CONSISTENT WITH VIVIANE SPECIES ARE PRESENT. Specimen adequacy: 02 Satisfactory for evaluation. Endocervical and/or squamous metaplastic cells (endocervical component) are present. Performed by: 02 Steve Saenz, C2 Tactical Analysis Technician (ASCP) . 02 Note: Note 03 The [...] High,A-Abnormal,AA-Critical Abnormal Performed at: 02 [facility] [address] [place] [id number] Kristian Waterman MD, 03 WB [facility] [address] [address] Britta Wang MD, SPATULA-ALONE [facility] Gastroenterology Office/Clin ic Noteon 11-01-2024 Gastroenterology Office/Clinic Note Gastroenterology Office/Clinic Note HPI Staff Patient is a 49 year old female who was referred by Dr Mccarty for elevated LFTs. LFTs did improve after being repeated a week later. previous EGD/ Colonoscopy - Friday, done at [facility] with Dr. Li blood thinners- 325 daily [...] wisdom to (more content not included)... Normal [facility] Comment on above: Result Comment: Elec tronically Signed By: Delaney BURK, Vinayka Mitchell.liam\Date and Time Signed: 11/01/24 14:36 EST H PYLORI SCREENon 10-27-2024 H. pylori Org specific cx Ql (Sara fld) Negative Normal NEG [facility] Comment on above: Performed By: #### 4 [id number] #### [facility] ([id number]) [address] [place] [address], [address] [place] [address] Surgical Pathologyon 024 Surgical Pathology Normal [facility] Comment on above: Result Comment: [facility] [address] [place] [address] Surgical Pathology Consultation ADDENDUM [place] Patient Name:HORACIO KEATING:1975 (Age: 49)Gender:FTaken:10/27/2024eported:11/05/2024hysician(s):Willa Li MD ([phone])Copy To: Rec. #:[id number]: #[id number] Final Pathologic Diagnosis 1. Antrum biopsy: Mild [...] Electronically Signed Out gisel/11/05/2024Smith Clark MD Addendum ([facility]) Date Reported: 11/09/2024 In specimen part 1, immunohistochemistry (with appropriate controls) for Helicobacter pylori organisms is NEGATIVE. Electronically Signed Out Smith Clark MD Interpretation [place] [address], License number: [id number]. Clinical History Positive fecal occult blood Gross Description 1. Received in formalin labeled KEATING, antrum are two pink-julian soft tissue bits, 0.1 and 0.3 cm in greatest dimension. The specimens are filtered and submitted entirely in a single cassette. (1, ns, [id number], m8) YEISON 2. Received in formalin labeled KEATING, appendiceal are three pink-julian soft tissue bits and strips, 0.3, 0.3, and 0.6 cm in greatest dimension. The specimens are filtered and submitted entirely in a single cassette. (1, ns, [id number], m8) YEISON vaz/10/29/2024GR Specimen(s) Received 1: Antrum biopsy 2: Appendiceal orifice Fee Codes(s): 1; 10695, 50419 2; 59958 Basic Metabolic Panelon 08-03 GFR/1.73 sq M.predicted MDRD (S/P/Bld) [Vol rate/Area] mL/min/{1.73_m2} Normal [facility] Comment on above: Performed By: #### B MP, LIPID #### [facility] [address] [place] [address] [place] Calcium [Mass/volume] in Ser um or PlasmaOrdered By: Dedrick Fuller on 08-30-2024 Calcium [Mass/Vol] 9.9 mg/dL Normal 8.6-10.3 [facility] Comment on above: Performed By: #### B MP, LIPID #### [facility] [address] [place] [address] [place] Carbon dioxide, total [Moles /volume] in Serum or PlasmaOrdered By: Dedrick Fuller on 08-30-2024 CO2 [Moles/Vol] 26.6 mmol/L Normal 21.0-31.0 [facility] Comment on above: Performed By: #### B MP, LIPID #### [facility] [address] [place] [address] [place] Chloride [Moles/volume] in S altagracia or PlasmaOrdered By: Dedrick Fuller on 08-30-2024 Chloride [Moles/Vol] 104 mmol/L Normal 98-107 [facility] Comment on above: Performed By: #### B MP, LIPID #### [facility] [address] [place] [address] [place] Cholesterol [Mass/volume] in Serum or PlasmaOrdered By: Dedrick Fuller on 08-30-2024 Cholesterol [Mass/Vol] 218 mg/dL High 140-200 [facility] Comment on above: Chol less than 200 m g/dl low riskChol 201-239 mg/dl borderline riskChol 240 mg/dl and greater high risk Result Comment: Chol less than 200 mg/dl low risk Chol 201-239 mg/dl borderline risk Chol 240 mg/dl and greater high risk Performed By: #### B MP, LIPID #### [facility] [address] [place] [address] [place] Cholesterol in LDL Calc [Mas s/Vol]Ordered By: Dedrick Fuller on 08-30-2024 Cholesterol in LDL [Mass/Vol] 134 mg/dL High 0-100 [facility] Comment on above: LDL ATP III CLASSIFI CATIONLDL less than 100 mg/dL OptimalLDL 100-129 mg/dL Near or above optimalLDL 130-159 mg/dL Borderline highLDL 160-189 mg/dL HighLDL greater than 189 mg/dL Very high Cholesterol in VLDL Calc [Ma ss/Vol]Ordered By: Dedrick Fuller on 08-30-2024 Cholesterol in VLDL [Mass/Vol] 46 mg/dL [facility] Creatinine [Mass/volume] in Serum or PlasmaOrdered By: Dedrick Fuller on 08-30-2024 Creatinine [Mass/Vol] 0.75 mg/dL Normal 0.60-1.20 [facility] Comment on above: Performed By: #### B MP, LIPID #### [facility] [address] Glucose [Mass/volume] in Ser um or PlasmaOrdered By: Dedrick Fuller on 08-30-2024 Glucose [Mass/Vol] 95 mg/dL Normal 70-100 [facility] Comment on above: ADA recommended refe rence rangeRandom Glucose Reference Range is dependent on time and content of last meal. Glucose of more than 200 mg/dL in a nonstressed, ambulatory subject supports the diagnosis of Diabetes Mellitus. Result Comment: [place] om Glucose Reference Range is dependent on time and content of last meal. Glucose of more than 200 mg/dL in a nonstressed, ambulatory subject supports the diagnosis of Diabetes Mellitus. ADA recommended reference range Performed By: #### B MP, LIPID #### [facility] [address] Lipid Panelon 08-30-2024 LDL Cholesterol,Calculated 134 mg/dL High 0-100 [facility] Comment on above: Result Comment: LDL ATP III CLASSIFICATION LDL less than 100 mg/dL Optimal LDL 100-129 mg/dL Near or above optimal LDL 130-159 mg/dL Borderline high LDL 160-189 mg/dL High LDL greater than 189 mg/dL Very high Performed By: #### B MP, LIPID #### [address] Triglyceride w/Reflex 231 mg/dL High 0-149 [facility] Comment on above: Result Comment: TRIG ATP III CLASSIFICATION TRIG less than 150 mg/dL Normal TRIG 150-199 mg/dL Borderline high TRIG 200-500 mg/dL High TRIG greater than 500 mg/dL Very high Standard traceable to the Center for Disease Conrtrol and Prevention (CDC) test method. Performed By: #### B MP, LIPID #### [facility] [address] [place] [id number] [facility] VLDL CHOLESTEROL 46 mg/dL Normal [facility] Comment on above: Performed By: #### B MP, LIPID #### [facility] [address] No Panel InformationOrdered By: Dedrick Fuller on 08-30-2024 Estimated GFR (CKD-EPI) > 60.0 mL/Min [facility] Creatinine Clearance (Chem N/A [facility] Potassium [Moles/volume] in Serum or PlasmaOrdered By: Dedrick Fuller on 08-30-2024 Potassium [Moles/Vol] 4.1 mmol/L Normal 3.5-5.1 [facility] Comment on above: Performed By: #### B MP, LIPID #### [facility] [address] Serum or plasma anion gap de terminationOrdered By: Dedrick Fuller on 08-30-2024 Anion gap [Moles/Vol] 13.5 mmol/L Normal 6.0-15.0 [facility] Comment on above: Performed By: #### B MP, LIPID #### [address] Serum or plasma high density lipoprotein (HDL) cholesterol measurementOrdered By: Dedrick Fuller on 08-30-2024 Cholesterol in HDL [Mass/Vol] 38 mg/dL Normal 23-92 [facility] Comment on above: HDL CHOL ATP-III CLA SSIFICATION Cardiovascular RiskHDL > or equal to 60 mg/dL LOWHDL < 40 mg/dL HIGH Result Comment: HDL CHOL ATP-III CLASSIFICATION Cardiovascular Risk HDL > or equal to 60 mg/dL LOW HDL < 40 mg/dL HIGH Performed By: #### B MP, LIPID #### [address] Serum or plasma total choles terol/high density lipoprotein (HDL) cholesterol mass ratOrdered By: Dedrick Fuller on 08-30-2024 Cholesterol.total/Chol esterol in HDL [Mass ratio] 5.7 {ratio} Normal <5.0 [facility] Comment on above: Result Comment: PERF ORMED BY: [place] [address] PATHOLOGIST ADMISSION NURSE IRMA MARCELO M.D. Performed By: #### B MP, LIPID #### [address] Sodium [Moles/volume] in Ser um or PlasmaOrdered By: Dedrick Fuller on 08-30-2024 Sodium [Moles/Vol] 140 mmol/L Normal 136-145 [facility] Comment on above: Performed By: #### B SP, LIPID #### [facility] [address] [place] [id number] [facility] Triglyceride [Mass/volume] i n Serum or PlasmaOrdered By: Dedrick Fuller on 08-30-2024 Triglyceride [Mass/Vol] 231 mg/dL High 0-149 [facility] Comment on above: TRIG ATP III CLASSIF ICATIONTRIG less than 150 mg/dL NormalTRIG 150-199 mg/dL Borderline highTRIG 200-500 mg/dL High TRIG greater than 500 mg/dL Very highStandard traceable to the Center for Disease Conrtrol and Prevention (CDC) test method. Urea nitrogen [Mass/volume] in Serum or PlasmaOrdered By: Dedrick Fuller on 08-30-2024 Urea nitrogen [Mass/Vol] 18 mg/dL Normal 7-25 [facility] Comment on above: Performed By: #### B SP, LIPID #### [facility] [address] [place] [id number] [facility] Coding Summaryon 03-19-2024 Coding Summary HTMLBase 64 RqgngwkjZQq4iQm+PGhlYWQ+PE 2ABCIdI84ikFEavF0wJ5OEFEeI JkzdQYMQLWjKOmIqpdXjDB4ngT NjZXJu IC8+AJ4xUQLyGttscHHvu1L7bU P4V45cvc9nVGtgvGK2QJIqJqKn bbjnc0upcKx2SLzwJljcOyQy DDEflY63AVN5zA45Iz70dGAfdT Mry0mejWe7DvKmAOFhFEH0fWdi YBiyf1YgNRSyR48iyKZny0F2 RAAmqQuteZIiOiDxfBZ5rI5wCU qrypplj7xejpruUzz9zm20jWQg b1Z2gFL4F2NpxgU0QIGoxMWe IopyhYUJtJ5vcuwvf9tzfxpzPk UgVFNfAAv5DSd1TKIhfBguSqYw HE16OOO3WOGymuAdI2ObPMWr cRlaGsA1f7K4Cp5QB5TCDdosZ2 VNTUFSWTwvdGQ+FT26jq74N9Dp FjuwKmm6JBZcBRX8wQR8jA1p KRJeAWpok9A8fCQ6V6QlhaTxud 8iq1ncZDPbRYnoL70vwAFfs6B4 FQSlhQO0CGNqrHroWmRaxY13 Oyc+IGGxgNdmu5EaWutko0uep5 ouwUu2LohpYKErrcFyeQonWLB3 s5FrUi8wSEYhaVZ3qAN5zW5i HgZoYqR7TPvdU226ZiHzeOLqVa zkD19sK5WwlFF+IUGxMca2YUZc pLhmCQ6tA6RoEAXawozszVKh rQsqPG1hTGNhdujeTQLmjO0mVA WoK8v8GuUqOyF9BTbyW8QvOGCo xyzaGa30uF7jQtWjMpB8FAhu S4WdqeP8IRGhuRPiXQdgGUN7K4 3ka2X4IJOqVUWoATZ7dYN6zJ3h bGlnbjogbGVmdDsgdmVydGlj AOggXVqlB198AQOejTlsKkUvBY luZyBEYXRlOiAgMDQvMTkvMjAy NDwvdGQ+HGKyYIE3kOeaFGVo zPUcYOdeOe0ymQslvBmbMJ9zUD QwpmhlIQAylU2iCHGgaSMnaZsw VV6dOLVkgmwxf858EbClUJF1 RQBvtNVoE8XrzI9gNpFpDXWtSO EbU3TiuWSkVRvaL186DQsuYzF0 QBAgpkJeQ5MgTEAxaJiaGwZ7 d1O7Ke2Nn7QsgrktY9BnoUNjAx JjXywmMOf9R1SmBrqieEN+PC90 OSAwMT82ZBf3FMB6rPlgBVcy CTXuI6NzhG9xWcSaZAWgACVgTs c+PHRhYmxlIHdpZHRoPScxMDAl EuZkzLisTM9oFk0pJOHpSBHr fJxkaPOlVoPap8slGRDeFXlvGQ 6pkWstZ1ClkLG1WSKne0f5Xx15 O15nL3HkeHH+ZLYnoCC5fLJ9 wP9iAkCtWbD1FBdpF819FjCxsJ YkAurru1unf5vpaDb6HkN3JWZu riSvvSewIZZ8h4JjHn09F04n IHdpZHRoPSIxNSUiIHZhbGlnbj 4deE1fCe8+TIDpqYF4yGK1pT9c JzClTlI1CRybM795JqTdiNCf Xikqy8apq1ijeCk0YtUaFZAfrc GdxUwxQWL4y6EoAf28J7ThdQiz u1ZqHrc1hk20vJLeu4I5fGE1 L9ChZGWveopwyNRedRkdTN7gOQ HhdgdjAPHsgT7gEKPiJ0j1ZbDi EzC7TSrlD6GsgeD9DXRebOUu YUHlxIOWvN2wlzmyv1wfavusRh VnFQRaDIp8EWr3KPOmjHjmBoMq RSU1DeO3RHE4dPFlkI4uaEww eedrkE6mEmg+VZZ3qIUpxXSBBT 1lOjwvdGQ+VDPeODS7bGkxIYcn GRExzU0jOYXnT4n0WxYeKvZ0 UVudF7XvfvX5PWHrlLPmRBHfgR OVlG1furdxz6rmywajWjZgGKKz TIt4FEo0IQPgbJknGdZeHET9 OaI9ENR3zIBfmO3gwDwvwhtjyR 9wOyc+OyadjAguOIO9DBp5X2Tk Roh6XYAvnHakHY5qxMNfDHjx Cu0ygXgjjWacSX5lETOwomwdh4 01EsEyb2hhWDLfdGQdNKzkVAR6 Z09lz4R1AJHiSSJeEOD9tGJ4 qE2tyWoweclwcFKrcQwihxGfgD kkXHoaZFxqW752KJUdnQtwZgYf TKp4A2WxYvv3GOSerTioWK3c qRLiUQjzWu8kaNkvwNpgGQ5gAK Dtnzwdz703VyKas4vaUNSaoYEa LRrwOJL1M94ny9Q7YHGeVDQr IHX8lZY0qF7cmHnjequdwXZbtI ctzgXslPzuKJxoKWqqZ853IVSk vUbjIuXelYn3W1CmQws4STPm rIkgPB3poXBpBVnhTc1qfOiupT zxYP7uAZMriplbh994DdUtt1ok LZQekRRmGFugAWK2R45hk2A6 ONBgRJQhHKO8fIC9vC9gcAxxki ogbGVmdDsgdmVydGljYWwtYWxp Y162FBWovEnpLhDrsGoqybHk YAqwOEg1F5FvVdnxfRY+PC90YW NxCS47sZYmsYGzl3tzgZh3WoKm YDTtCOO2aFkmQPgzp1YeCHFb R11iuCJtz2I6GYXozVwurRKvIl TbiAZ5gW6qUEfxmwlqv9lyqxzu Mgluu8ufqm96qL06R15iKYpo ZHBrRRRmTIIzBZKzyKwkra1epT 9wIi8+ZVQtlYJ0bOX3rG8qYHDg CeL9CGwiI333ScUaeHFwKvxv a3gut7edlFa8KrO4IVSkisSnqV ppOTA9e7WySr25K02fPVlyNPXk SUYaVDCjOZMomSvinp9vjL8v Ii8+DPXyrRX2uQY1zX6jTaMfZn P0YOovY645HgSjgBUtRmkeS25i A4UplAX+LSQrTgl8VMGzqRud IM1aoCQpEFklKs0lARW3LtDjZm OeLIojL9EfTZVsmxqjmdwkeMK5 CFEeKAVpkM69Ie5ftFjvQLKo kXHBlM4bljsjx0rtboeeBxJeHT PlAKz0BAp5ZZCvnUsoLnIwLIV4 QyY4XLI9dPIniF0wzQzdgecp tY8eE0DyLNPsnrmrLl72zD6uEz MwGtR1VAnqIvs+O75QKEBUECEO VHTWXL7YSA3MR38KGPvbpLC+ WNMdARA4dKslVAtkETTxiM5ePT XaL6b6OpLlApW7NPbvT4ZiPZDp vexoSa97wV4cHkMeNrN1MByo Q9GokvW9ODFgqPKlKBvkELD7B9 2by4F1TJOjZOWzINB8rUF1cE4d bGlnbjogbGVmdDsgdmVydGlj EZkyYQyxV381YFFptLgvFxQ7Yu I8BuH7BcX6K0MaZll8BBHuuAbc RQ2yeDFsMNwwAz3dgHfkqLwy WE4pEBIokxrwJTPnkK5qNDOryC ExtKjuCC2xLGIgkcjcp150ObBv QOG0OYQpaKXvO2HzxO1hBfZb XABfOANjM2GxsEJwHWmeK452SQ cjUgQ0OLAvxhPhF6DdKTSfdTbs WqM8c7U5Ei10RzNHYGSpnnzr dGQ+HGLjDVK7zQqtYEjlEZLmxG 8wENNfM9e0CyHqDjS0YIguN0Za EWCxaehsBz19qJ9rPbWgZkG5 VXftW2QojgC7VDTtyLHtMXfoMT Z6B51wa6P6GNLuLQUxTFW6dFE0 oV6emFibegeuuKUtvUhydhDw cFzyLSkvYMzbT685WUJehKmaFd ZFTUFMRTwvdGQ+TTWzFHQ2nShk QIybOJHvvM7cEPAwA8p5UdHh TvD5FBqyJ1DxFZZimspfXh25tO 9oCrAvRdA5XPwmC7LanfW5IAIg bCTlIWiiMLI7I33rn5D1VABz SALjZEH2xVO9nI3wxXdtjfiuyD LikSfrraLidIobVDevOBzdR767 KRVebNeyPwZgOLKyNJ2wcCza dGQ+ZV14pp01A1DqUapdTwi9IE PkYGF5tZU1zR5qLLKvLDfqh1Q6 cJG2D0VvzuSpda9ak1uzOZGa PYdsM31ggXQqy3A4KCBqrUX7VJ HfvOulTdQgiB17Ene+PGNvbGdy x5JbRxyot2xzq6uekDr5NhEo VVBmsaSlxLwqBEH9s9AhFu92P6 9sIHdpZHRoPSIzMCUiIHZhbGln jt9bqC5aSx0+CLBgwMH3eMN7 mS7tOlNnUvE5HZttJ922UjDxqN GvSixcb5xhr9yifYj9AoLkJWBu utDejZzsGSZ7w8ItAy39M1Uf qJfac2KrDmj6yf34nWXen9B9zS F7C9YyJYDmrqgucHFarUjbOO0i JLLloukhFHJbuT7zRZSqR0p3 JkLmWbJ4DFnwH6OiojJ2QCEkfL QbLAAegMDZoJ6cwskhi0fiztpp QqPcKDMoQSu5ANp6LRCveDho VtHsCWF8QmO8XIG5mBYyhO3plZ vkayzhgT5dDxg+MSt2l1ousYAm OG5jyGZ5OK03CQ37cXMew1Q6 nWH1A2ZuCVTimtddqqoivJQ8VS OvDUYlbT08Ny3tkZerXx3eYEKq AZC1AHJduBHxV8DbgO9dUnKh MSZsWBJbH9VuvZWkHVhqD421XT vaBpU7OQNfipDdA8AaIQOvfDeu NfU0z1O2Sn7XQC87IW33OX98 vHUzh7Y3vUK3G0QuUPBnjhduyt megMH9AXKrMOQeyN77Wm3odCom Ab4vGZRdIQP3QKVahIJmX5Jx gS2lDjAbBSMeDWAjY9BpuWFaIH otB383GMgbKwA5KTVqygQcX1Cu CUTeyVncGyK5v3Z9Cz0FAl19 LC56RI26qSWcr5G1jGM4Z0DqFU AojtosutpxyZY8EMYwIDLqtL99 Up4ybXvyGc4zQCUcXMM4JLTv mVLkD4NsoJ6ySzHcHXYkLFTyZ9 CoeLYiBCgkQ878TRcdAtC1PGHw vsExD6QyWITspYkiQoM8z1O6 Br9AKCzmuju5K1QtBzmrvYI+PC 76ZOLxSZ04fGGwnLKht0halHp9 IuOhIMUmAHX2jTobTWjxr0Jo ZXI (more content not included)... [facility] Ambulance Noteon 03-17-2024 Ambulance Note [id number] [facility] C Urineon 03-17-2024 C Urine Urine Culture ordere d as a result of parameters set on specific urine dip and urine microsopic results. >100,000 cfu/ml Lactobacillus species Normal vaginal oleg isolated 10,000 cfu/ml Corynebacterium species (DIPTHEROID) No YOLANDE performed on this organism No pathogens isolated [facility] Comment on above: Performed By: #### 5 [id number] ####[facility] (DEFAULT)[address] [place] [address] .Auto Diff 1on 03-15-2024 Auto Smyth % 3 % Normal -12 [facility] Comment on above: Performed By: #### 5 [id number], [id number], [id number], [id number], [id number], 6888083, 3827328 #### [facility] (DEFAULT) [address] [place] [address] Baso Abs# 0.1 x10 Normal 0.0-0.2 [facility] Comment on above: Performed By: #### 5 [id number], [id number], [id number], 70600570, 1742694094, 9243558, 2465233 #### [facility] (DEFAULT) [address] [place] [address] Basophils/100 WBC (Bld) 0.7 % Normal 0.2-2.0 [facility] Comment on above: Performed By: #### 5 [id number], [id number], [id number], 06381967, 1624049759, 2404752, 0261911 #### [facility] (DEFAULT) [address] [place] [address] Eos Abs# 0.1 x10 Normal 0.0-0.4 [facility] Comment on above: Performed By: #### 5 [id number], [id number], 8892436063, 39306086, 2944848387, 1145632, 7107851 #### [facility] (DEFAULT) [address] [place] [address] Eosinophils/100 WBC (Bld) 0.7 % Low 0.9-4.0 [facility] Comment on above: Performed By: #### 5 [id number], [id number], [id number], 50725148, 0342156267, 2647062, 3447815 #### [facility] (DEFAULT) [address] [place] [address] Lymph Abs# 2.2 x10 Normal 1.3-2.9 [facility] Comment on above: Performed By: #### 5 [id number], [id number], 9443343162, 95290846, 7735980623, 8054149, 4296089 #### [facility] (DEFAULT) [address] [place] [address] 96953 Lymphocytes/100 WBC (Bld) 14 % Normal 14-48 [facility] Comment on above: Performed By: #### 5 [id number], [id number], 5127887660, 29961744, 5181774551, 0933720, 0847897 #### [facility] (DEFAULT) [address] [place] [address] Smyth Abs# 0.5 x10 Normal 0.0-0.8 [facility] Comment on above: Performed By: #### 5 [id number], [id number], 3027196306, 52040989, 0194576024, 7022234, 7279198 #### [facility] (DEFAULT) [address] [place] [address] Neut Abs# 13.5 x10 High 1.5-9.2 [facility] Comment on above: Result Comment: Slid e Reviewed Performed By: #### 5 [id number], [id number], [id number], 88583718, 6984756310, 6779214, 0396815 #### [facility] (DEFAULT) [address] [place] [address] 17225 Neutrophils/100 WBC (Bld) 82 % Normal 44-88 [facility] Comment on above: Performed By: #### 5 [id number], [id number], 3520011004, 49314232, 6346498796, 9636645, 0667346 #### [facility] (DEFAULT) [address] [place] [address] 34575 CBC w/ Auto Diffon 4 Erythrocyte distribution width (RBC) [Ratio] 13.3 % Normal 11.5-15.0 [facility] Comment on above: Performed By: #### 5 [id number], [id number], [id number], 90297837, 9872922936, 2699833, 3323824 #### [facility] (DEFAULT) [address] [place] [address] Hematocrit (Bld) [Volume fraction] 45.0 % High 33.7-40.4 [facility] Comment on above: Performed By: #### 5 [id number], [id number], 8541584399, 11874729, 3738535179, 6599187, 9812274 #### [facility] (DEFAULT) [address] [place] [address] Hemoglobin (Bld) [Mass/Vol] 15.0 g/dL Normal 11.3-15.9 [facility] Comment on above: Performed By: #### 5 [id number], [id number], 8976741629, 41182373, 2326268550, 3301018, 3826472 #### [facility] (DEFAULT) [address] [place] [address] Man Diff? Auto Invalid Interpretation Code [facility] Comment on above: Performed By: #### 5 [id number], [id number], 4906290235, 53164361, 7275889460, 8890296, 1784140 #### [facility] (DEFAULT) [address] [place] [address] 24397 MCH (RBC) [Entitic mass] 32 pg Normal 24-34 [facility] Comment on above: Performed By: #### 5 [id number], [id number], 0656226665, 23779687, 9854803892, 5482779, 0527966 #### [facility] (DEFAULT) [address] [place] [address] 21670 MCHC (RBC) [Mass/Vol] 33 g/dL Normal 26-37 [facility] Comment on above: Performed By: #### 5 [id number], [id number], 2759860959, 76772478, 0805499699, 6903543, 0958937 #### [facility] (DEFAULT) [address] [place] [address] 57583 MCV (RBC) [Entitic vol] 95 fL Normal 81-100 [facility] Comment on above: Performed By: #### 5 [id number], [id number], 5028768099, 32340619, 4267184494, 0183581, 9388932 #### [facility] (DEFAULT) [address] [place] [address] 85758 Platelet 292 x10 Normal 138-427 [facility] Comment on above: Performed By: #### 5 [id number], [id number], 0299434872, 30172786, 2427065607, 6789881, 8059713 #### [facility] (DEFAULT) [address] [place] [address] Platelet mean volume (Bld) [Entitic vol] 8.7 fL Normal 6.3-10.2 [facility] Comment on above: Performed By: #### 5 [id number], [id number], 8074257796, 89992871, 3874901557, 0678589, 8489260 #### [facility] (DEFAULT) [address] [place] [address] RBC 4.74 x10 Normal 3.70-5.30 [facility] Comment on above: Performed By: #### 5 [id number], [id number], 8136495464, 25430432, 5212632410, 1809764, 2538703 #### [facility] (DEFAULT) [address] [place] [address] WBC 16.4 x10 High 3.5-10.5 [facility] Comment on above: Performed By: #### 5 [id number], 7106092373, 6415181342, 49494450, 5261169856, 6441833, 6830820 #### [facility] (DEFAULT) [address] [place] [address] 64568 CMP Standardon 03-15-2024 eGFR Non AA >60 Invalid Interpretation Code [facility] Comment on above: Performed By: #### 5 [id number], [id number], 4487966659, 38805172, 3639956617, 3392642, 9472787 #### [facility] (DEFAULT) [address] [place] [address] eGFR AA >60 Invalid Interpretation Code [facility] Comment on above: Performed By: #### 5 [id number], [id number], 4576403467, 61903741, 4959745811, 7952926, 9912233 #### [facility] (DEFAULT) [address] [place] [address] 91382 Albumin [Mass/Vol] 4.1 g/dL Normal 3.5-5.0 [facility] Comment on above: Performed By: #### 5 [id number], [id number], 7574889745, 14697315, 1021975189, 9563812, 3999054 #### [facility] (DEFAULT) [address] [place] [address] Albumin/Globulin [Mass ratio] 1.3 {ratio} Low 1.4-2.6 [facility] Comment on above: Performed By: #### 5 [id number], [id number], 6871843474, 51589470, 2573761011, 2058764, 3117152 #### [facility] (DEFAULT) [address] [place] [address] Alk Phos 39 IU/L Normal 32-91 [facility] Comment on above: Performed By: #### 5 [id number], [id number], 4501393711, 08237768, 9836920054, 2318115, 6544390 #### [facility] (DEFAULT) [address] [place] [address] ALT [Catalytic activity/Vol] 32.0 U/L Normal 14.0-54.0 [facility] Comment on above: Performed By: #### 5 [id number], [id number], 4986021337, 55126387, 5422708086, 5889347, 1966117 #### [facility] (DEFAULT) [address] [place] [address] 24088 Anion gap [Moles/Vol] 13.0 mmol/L Normal 5.0-19.0 [facility] Comment on above: Performed By: #### 5 [id number], [id number], [id number], 26200400, 3366361030, 3678093, 7385785 #### [facility] (DEFAULT) [address] [place] [address] 84151 AST [Catalytic activity/Vol] 25 U/L Normal 15-41 [facility] Comment on above: Performed By: #### 5 [id number], [id number], [id number], 88536973, 7913590693, 3294987, 0571706 #### [facility] (DEFAULT) [address] [place] [address] 01741 Bili Total 1.4 mg/dL High 0.3-1.2 [facility] Comment on above: Performed By: #### 5 [id number], [id number], [id number], 63343026, 8988100720, 4040223, 9571737 #### [facility] (DEFAULT) [address] [place] [address] 17466 Calcium [Mass/Vol] 8.8 mg/dL Low 8.9-10.3 [facility] Comment on above: Performed By: #### 5 [id number], [id number], 9632611699, 24739026, 1954702535, 7876996, 6629931 #### [facility] (DEFAULT) [address] [place] [address] 63584 Chloride [Moles/Vol] 105 mmol/L Normal 101-111 [facility] Comment on above: Performed By: #### 5 [id number], [id number], 5861115156, 37443338, 1788001809, 1138441, 4191199 #### [facility] (DEFAULT) [address] [place] [address] 16639 CO2 [Moles/Vol] 24 mmol/L Normal 21-32 [facility] Comment on above: Performed By: #### 5 [id number], [id number], 1097436897, 03573196, 4422406237, 4561187, 0669461 #### [facility] (DEFAULT) [address] [place] [address] 69244 Creatinine [Mass/Vol] 0.72 mg/dL Normal 0.60-1.30 [facility] Comment on above: Performed By: #### 5 [id number], [id number], 1938345233, 39738572, 2734797474, 4028098, 8646525 #### [facility] (DEFAULT) [address] [place] [address] 12152 Globulin (S) [Mass/Vol] 3.0 g/dL Normal 1.5-4.3 [facility] Comment on above: Performed By: #### 5 [id number], [id number], 8631274171, 16135259, 1159199288, 0176444, 6050966 #### [facility] (DEFAULT) [address] [place] [address] 57394 Glucose [Mass/Vol] 124.0 mg/dL High 74.0-118.0 [facility] Comment on above: Performed By: #### 5 [id number], [id number], 3805156928, 55145098, 2031265098, 3011645, 7803228 #### [facility] (DEFAULT) [address] [place] [address] 64289 Osmolality 278 mOsm/L Invalid Interpretation Code [facility] Comment on above: Performed By: #### 5 [id number], [id number], [id number], 75005414, 5306239067, 5853388, 1655893 #### [facility] (DEFAULT) [address] [place] [address] 65635 Potassium [Moles/Vol] 4.0 mmol/L Normal 3.6-5.1 [facility] Comment on above: Performed By: #### 5 [id number], [id number], 9983161752, 48717444, 9986198433, 7232850, 2964342 #### [facility] (DEFAULT) [address] [place] [address] 92158 Protein [Mass/Vol] 7.1 g/dL Normal 6.5-8.1 [facility] Comment on above: Performed By: #### 5 [id number], 5357539273, 8057827139, 20741623, 5261317079, 7098680, 0381272 #### [facility] (DEFAULT) [address] [place] [address] 97521 Sodium [Moles/Vol] 138.0 mmol/L Normal 136.0-144 . 0 [facility] Comment on above: Performed By: #### 5 [id number], [id number], 0356410713, 32423505, 4401470764, 1545460, 6505367 #### [facility] (DEFAULT) [address] [place] [address] Urea nitrogen [Mass/Vol] 15 mg/dL Normal 8-26 [facility] Comment on above: Performed By: #### 5 [id number], 9823918063, 5012811919, 62763935, 9006712103, 0634099, 4200578 #### [facility] (DEFAULT) [address] [place] [address] Urea nitrogen/Creatinine [Mass ratio] 20.8 mg/mg High 4.6-16.2 [facility] Comment on above: Performed By: #### 5 [id number], [id number], 9411801745, 99137362, 8243054223, 2092703, 9185475 #### [facility] (DEFAULT) [address] [place] [address] 89452 Breakpoint Chem Normal [facility] Comment on above: Performed By: #### 5 [id number], [id number], 3153808705, 78844810, 8331101221, 4548776, 3118173 #### [facility] (DEFAULT) [address] [place] [address] 21282 ED Clinical Summaryon 2023 ED Clinical Summary [facility] - Emergency Department [address] [place] [address] ED Clinical Summary PERSON INFORMATION Name: HORACIO KEATING Age: 48 Years Sex: FEMALE : 1975 MRN: Acct#: Visit Reason: Shortness of breath; Anxiety; Blood pressure check; SOB Arrival: 03/15/2024 17:56:51 Discharge: 03/15/2024 20:31:00 LOS: 000 02:35 Check In: 03/15/2024 17:56:51 Checkout:03/15/2024 20:31:00 Address: [address] [place] [address] PCP: SAMI MCCARTY PROVIDER INFORMATION Provider Role [...] Physical Exa (more content not included)... Normal [facility] ED Note - Physicianon 2023 ED [...] Psychiatric: (more content not included)... [facility] ED Note-Nursingon 03-15-2024 ED Note-Nursing Patient presents to the ER via [facility] for shortness of breath, anxiety. Patient [...] 12 lead was regular in rate Normal [facility] [facility] ED Patient Summaryon 024 ED Patient Summary [facility] - Emergency Department [address] [place] [id number] PATIENT DISCHARGE INSTRUCTIONS Patient Information Name: HORACIO KEATING Age: 48 Years Date of : 1975 [facility]: [id number] Reason For Visit: Shortness of breath; Anxiety; Blood pressure check; SOB Arrival Time: 03/15/2024 17:56:51 Primary Care Physician: SAMI MCCARTY Attending Physician: Nicola Neff DO Comment: Visit Diagnosis: Diagnoses This Visit Anxiety ([id number]) Blood pressure check ([id number]) Hypertension (I10) Panic attack (F41.0) Shortness of breath ([id number]) Urinary tract infection (N39.0) The Pharmacy at [facility] is open Friday through Friday from [...] and/or drug addiction problems; contact the [facility] 23/06 Crisis Hotline -Text 4GMLE gz [phone]. If you received any narcotics, sedation, or [...] any legal documents With: Address: When: SAMI LUL [address] [place] [address] [place] [address] Business () Within 3 to 5 days Comments: Call for follow up appointment Return if symptoms worsen Medication Information: The exam and treatment you received today in the [facility] Emergency Department were for an urgent problem and are not intended as complete care. It is important for you to follow up with a doctor, nurse practitioner, or physician?s assistant men's lacrosse coach for ongoing care. If your symptoms [...] so we can reach you if necessary. [facility] Emergency Department has provided you with a complete list of medications post discharge. Please inform your roller shop supervisor/provider of your visit and for further instruction [...] Vitals an (more content not included)... Normal [facility] Extra Greenon 03-15-2024 Tube Collected Yes Invalid Interpretation Code [facility] Comment on above: Performed By: #### 5 [id number], [id number], [id number], [id number], [id number], [id number], [id number] #### [facility] (DEFAULT) [address] [place] [address] Extra Redon 03-15-2024 Tube Collected Yes Invalid Interpretation Code [facility] Comment on above: Performed By: #### 5 [id number], [id number], [id number], [id number], [id number], [id number], [id number] #### [facility] (DEFAULT) [address] [place] [address]97[address] PTon 03-15-2024 INR Coag (PPP) [Relative time] 0.94 {INR} Normal 0.91-1.11 [facility] Comment on above: Performed By: #### 5 [id number], [id number], [id number], [id number], [id number], [id number], [id number] #### [facility] (DEFAULT) [address] [place] [address] 19249 PT 9.8 second(s) Normal 9.7-11.8 [facility] Comment on above: Performed By: #### 5 [id number], [id number], [id number], [id number], [id number], [id number], [id number] #### [facility] (DEFAULT) [address] [place] [address] 10378 TnI HSon 03-15-2024 Troponin I High Sensitivity 7.7 pg/mL Normal <=15.0 [facility] Comment on above: Performed By: #### 5 [id number], [id number], [id number], [id number], [id number], [id number], [id number] #### [facility] (DEFAULT) [address] [place] [address] 45197 UA [id number] 03-15-2024 UA Amorph. 1+ [facility] Comment on above: Order Comment: Urina lysis Microscopic order added on by Discern Expert Rules system. Performed By: #### 5 [id number], [id number], [id number] ####[facility] (DEFAULT)[address] [place] [address] UA Bacteria 3+ Normal [facility] Comment on above: Order Comment: Urina lysis Microscopic order added on by Discern Expert Rules system. Performed By: #### 5 [id number], [id number], [id number] ####[facility] (DEFAULT)[address] [place] [address] UA Mucous 1+ Normal [facility] Comment on above: Order Comment: Urina lysis Microscopic order added on by Pheed Expert Rules system. Performed By: #### 5 [id number], [id number], [id number] ####[facility] (DEFAULT)[address] [place] [address] UA RBC 3-5 Normal [facility] Comment on above: Order Comment: Urina lysis Microscopic order added on by Discern Expert Rules system. Performed By: #### 5 [id number], [id number], [id number] ####[facility] (DEFAULT)[address] [place] [address] UA Renal Epi Rare Normal [facility] Comment on above: Order Comment: Urina lysis Microscopic order added on by Discern Expert Rules system. Performed By: #### 5 [id number], [id number], [id number] ####[facility] (DEFAULT)[address] [place] [address] UA Squam Epi Many Normal [facility] Comment on above: Order Comment: Urina lysis Microscopic order added on by Discern Expert Rules system. Performed By: #### 5 [id number], [id number], [id number] ####[facility] (DEFAULT)[address] [place] [address] UA WBC 3-5 [facility] Comment on above: Order Comment: Urina lysis Microscopic order added on by Discern Expert Rules system. Performed By: #### 5 [id number], [id number], [id number] ####[facility] (DEFAULT)[address] [place] [address] UA w Culture if Ind Standard on 03-15-2024 Breakpoint UA [facility] Comment on above: Performed By: #### 5 [id number], [id number], [id number] ####[facility] (DEFAULT)[address] [place] [address] Color (U) Yellow [facility] Comment on above: Performed By: #### 5 [id number], [id number], [id number] ####[facility] (DEFAULT)[address] [place] [address] Culture? Indicated Invalid Interpretation Code [facility] Comment on above: Result Comment: Resu lt created by rule GL_MAGR_ADD_UA_CULT Result created by rule GL_MAGR_ADD_UA_CULT Result created by rule GL_MAGR_ADD_UA_CULT1 Result created by rule GL_MAGR_ADD_UA_CULT Performed By: #### 5 [id number], [id number], [id number] ####[facility] (DEFAULT)[address] [place] [address] Glucose (U) [Mass/Vol] Negative [facility] Comment on above: Performed By: #### 5 [id number], [id number], [id number] ####[facility] (DEFAULT)[address] [place] [address] Ketones Ql (U) Negative [facility] Comment on above: Performed By: #### 5 [id number], [id number], [id number] ####[facility] (DEFAULT)[address] [place] [address] Micro? Indicated Invalid Interpretation Code [facility] Comment on above: Result Comment: Resu lt created by rule GL_MAGR_ADD_UA_MICRO Performed By: #### 5 [id number], [id number], [id number] ####[facility] (DEFAULT)[address] [place] [address]24 UA Bilirubin Negative Normal [facility] Comment on above: Performed By: #### 5 [id number], [id number], [id number] ####[facility] (DEFAULT)[address] [place] [address] 45539 UA Blood TRACE Abnormal NEGATIVE [facility] Comment on above: Performed By: #### 5 [id number], [id number], [id number] ####[facility] (DEFAULT)[address] [place] [address] UA Clarity SL CLOUDY Abnormal CLEAR [facility] Comment on above: Performed By: #### 5 [id number], [id number], [id number] ####[facility] (DEFAULT)[address] [place] [address]68 UA Leuk Est LARGE Abnormal NEGATIVE [facility] Comment on above: Performed By: #### 5 [id number], [id number], [id number] ####[facility] (DEFAULT)[address] [place] [address]58[address] UA Nitrite Negative Normal NEGATIVE [facility] Comment on above: Performed By: #### 5 [id number], [id number], [id number] ####[facility] (DEFAULT)[address] [place] [address] 72168 UA pH 6.0 Normal 5-8 [facility] Comment on above: Performed By: #### 5 [id number], [id number], [id number] ####[facility] (DEFAULT)[address] [place] [address]65 UA Protein Negative Normal NEGATIVE [facility] Comment on above: Performed By: #### 5 [id number], [id number], [id number] ####[facility] (DEFAULT)[address] [place] [address] 36876 UA Spec Grav 1.015 Normal 1.001-1.03 5 [facility] Comment on above: Performed By: #### 5 [id number], [id number], [id number] ####[facility] (DEFAULT)[address] [place] [address] UA Urobilinogen 0.2 mg/dL Normal 0.2-1.0 [facility] Comment on above: Performed By: #### 5 [id number], [id number], [id number] ####[facility] (DEFAULT)[address] [place] [address] Urine Source Clean Catch Normal [facility] Comment on above: Performed By: #### 5 [id number], [id number], [id number] ####[facility] (DEFAULT)[address] [place] [address] XR Chest 1 View Frontalon XR Chest [...] Fu MD 03/15/24 7:34 pm Technologist: Lizzy BRICÑEO [facility] Calcium [Mass/volume] in Ser um or PlasmaOrdered By: Dedrick Fuller on 08-15-2023 Calcium [Mass/Vol] 9.1 mg/dL 8.6-10.3 [facility] Carbon dioxide, total [Moles /volume] in Serum or PlasmaOrdered By: Dedrick Fuller on 08-15-2023 CO2 [Moles/Vol] 26.7 mmol/L 21.0-31.0 [facility] Chloride [Moles/volume] in S altagracia or PlasmaOrdered By: Dedrick Fuller on 08-15-2023 Chloride [Moles/Vol] 107 mmol/L 98-107 [facility] Cholesterol [Mass/volume] in Serum or PlasmaOrdered By: Dedrick Fuller on 08-15-2023 Cholesterol [Mass/Vol] 166 mg/dL 140-200 [facility] Comment on above: Chol less than 200 m g/dl low riskChol 201-239 mg/dl borderline riskChol 240 mg/dl and greater high risk Cholesterol in LDL Calc [Mas s/Vol]Ordered By: Dedrick Fuller on 08-15-2023 Cholesterol in LDL [Mass/Vol] 95 mg/dL 0-100 [facility] Comment on above: LDL ATP III CLASSIFI CATIONLDL less than 100 mg/dL OptimalLDL 100-129 mg/dL Near or above optimalLDL 130-159 mg/dL Borderline highLDL 160-189 mg/dL HighLDL greater than 189 mg/dL Very high Cholesterol in VLDL Calc [Ma ss/Vol]Ordered By: Dedrick Fuller on 08-15-2023 Cholesterol in VLDL [Mass/Vol] 32 mg/dL [facility] Creatinine [Mass/volume] in Serum or PlasmaOrdered By: Dedrick Fuller on 08-15-2023 Creatinine [Mass/Vol] 0.77 mg/dL 0.60-1.20 [facility] Glucose [Mass/volume] in Ser um or PlasmaOrdered By: Dedrick Fuller on 08-15-2023 Glucose [Mass/Vol] 97 mg/dL 70-100 [facility] Comment on above: ADA recommended refe rence rangeRandom Glucose Reference Range is dependent on time and content of last meal. Glucose of more than 200 mg/dL in a nonstressed, ambulatory subject supports the diagnosis of Diabetes Mellitus. No Panel InformationOrdered By: Dedrick Fuller on 08-15-2023 Estimated GFR (CKD-EPI) > 60.0 mL/Min [facility] Creatinine Clearance (Chem N/A [facility] Potassium [Moles/volume] in Serum or PlasmaOrdered By: Dedrick Fluler on 08-15-2023 Potassium [Moles/Vol] 4.0 mmol/L 3.5-5.1 [facility] Serum or plasma anion gap de terminationOrdered By: Dedrick Fuller on 08-15-2023 Anion gap [Moles/Vol] 10.3 mmol/L 6.0-15.0 [facility] Serum or plasma high density lipoprotein (HDL) cholesterol measurementOrdered By: Dedrick Fuller on 08-15-2023 Cholesterol in HDL [Mass/Vol] 39 mg/dL 23-92 [facility] Comment on above: HDL CHOL ATP-III CLA SSIFICATION Cardiovascular RiskHDL > or equal to 60 mg/dL LOWHDL < 40 mg/dL HIGH Serum or plasma total choles terol/high density lipoprotein (HDL) cholesterol mass ratOrdered By: Dedrick Fuller on 08-15-2023 Cholesterol.total/Chol esterol in HDL [Mass ratio] 4.3 {ratio} <5.0 [facility] Sodium [Moles/volume] in Ser um or PlasmaOrdered By: Dedrick Fuller on 08-15-2023 Sodium [Moles/Vol] 140 mmol/L 136-145 [facility] Triglyceride [Mass/volume] i n Serum or PlasmaOrdered By: Dedrick Fuller on 08-15-2023 Triglyceride [Mass/Vol] 162 mg/dL 0-149 [facility] Comment on above: TRIG ATP III CLASSIF ICATIONTRIG less than 150 mg/dL NormalTRIG 150-199 mg/dL Borderline highTRIG 200-500 mg/dL High TRIG greater than 500 mg/dL Very highStandard traceable to the Center for Disease Conrtrol and Prevention (CDC) test method. Urea nitrogen [Mass/volume] in Serum or PlasmaOrdered By: Dedrick Fuller on 08-15-2023 Urea nitrogen [Mass/Vol] 10 mg/dL 06-24 [facility] GTT 2 HRon 11-09-2022 Glucose [Mass/Vol] 107 mg/dL Critically high 74-106 [facility] Comment on above: Performed By: #### U LG, CRP #### [facility] [address] [address] [address] Soo Donnelly Glucose [Mass/Vol] 152 mg/dL Normal [facility] Comment on above: Performed By: #### U LG, CRP #### [facility] [address] [address] [address] Soo Donnelly Glucose [Mass/Vol] 121 mg/dL Normal [facility] Comment on above: Performed By: #### U LG, CRP #### [facility] [address] ABD/PELV W CONon [...] SAUCEDA Date: 2022-10-01 10:31 Normal [facility] CBC AUTO DIFFon 09-18-2022 BASO # 0.0 103/ul Normal 0.0-0.1 [facility] Comment on above: Performed By: #### A NAD #### [facility] [address] [address] [address] Soo Donnelly Basophils/100 WBC (Bld) 0.4 % Normal 0.2-2.0 [facility] Comment on above: Performed By: #### A NAD #### [facility] [address] [place] [address] Dr. Soo Donnelly EO # 0.1 103/ul Normal 0.0-0.7 [facility] Comment on above: Performed By: #### A NAD #### [facility] [address] [place] [address] Dr. oSo Donnelly Eosinophils/100 WBC (Bld) 1.8 % Normal 0.9-7.0 [facility] Comment on above: Performed By: #### A NAD #### [facility] [address] [place] [address] Dr. Soo Donnelly Erythrocyte distribution width (RBC) [Ratio] 11.9 % Normal 11.0-15.0 [facility] Comment on above: Performed By: #### A NAD #### [facility] [address] [place] [address] Dr. Soo Donnelly Hematocrit (Bld) [Volume fraction] 43.9 % Normal 36.0-48.0 [facility] Comment on above: Performed By: #### A NAD #### [facility] [address] [place] [address] Dr. Soo Donnelly Hemoglobin (Bld) [Mass/Vol] 14.6 g/dL Normal 12.0-16.0 [facility] Comment on above: Performed By: #### A NAD #### [facility] [address] [place] [address] Dr. Soo Donnelly IG # 0.01 10e3/ul Normal 0.00-0.03 [facility] Comment on above: Performed By: #### A NAD #### [facility] [address] [place] [address] Dr. Soo Donnelly IG % 0.1 % Normal 0.0-0.5 [facility] Comment on above: Performed By: #### A NAD #### [facility] [address] [place] [address] Dr. Soo Donnelly LYMPH # 2.7 103/ul Normal 1.2-3.8 [facility] Comment on above: Performed By: #### A NAD #### [facility] [address] [place] [address] Dr. Soo Donnelly Lymphocytes/100 WBC (Bld) 39.9 % Normal 20.5-60.0 [facility] Comment on above: Performed By: #### A NAD #### [facility] [address] [place] [address] Dr. Soo Donnelly MANUAL DIFF REQ NO Normal [facility] Comment on above: Performed By: #### A NAD #### [facility] [address] [place] [address] Dr. Soo Donnelly MCH (RBC) [Entitic mass] 31.7 pg Normal 26.7-34.0 [facility] Comment on above: Performed By: #### A NAD #### [facility] [address] [place] [address] Dr. Soo Donnelly MCHC (RBC) [Mass/Vol] 33.3 g/dL Normal 29.9-35.2 [facility] Comment on above: Performed By: #### A NAD #### [facility] [address] [place] [address] Dr. Soo Donnelly MCV (RBC) [Entitic vol] 95.4 fL Normal 81.0-99.0 [facility] Comment on above: Performed By: #### A NAD #### [facility] [address] [place] [address] Dr. Soo Donnelly MONO # 0.4 103/ul Normal 0.3-0.8 [facility] Comment on above: Performed By: #### A NAD #### [facility] [address] [place] [address] Dr. Soo Donnelly Monocytes/100 WBC (Bld) 5.9 % Normal 1.7-12.0 [facility] Comment on above: Performed By: #### A NAD #### [facility] [address] [place] [address] Dr. Soo Donnelly NEUT # 3.5 103/ul Normal 1.4-6.5 [facility] Comment on above: Performed By: #### A NAD #### [facility] [address] [place] [address] Dr. Soo Donnelly Neutrophils/100 WBC (Bld) 51.9 % Normal 43.0-75.0 [facility] Comment on above: Performed By: #### A NAD #### [facility] [address] [place] [address] Dr. Soo Donnelly Platelet mean volume (Bld) [Entitic vol] 10.8 fL Normal 9.5-13.5 [facility] Comment on above: Performed By: #### A NAD #### [facility] [address] [place] [address] Dr. Soo Donnelly PLT 220 103/ul Normal 150-450 [facility] Comment on above: Performed By: #### A NAD #### [facility] [address] [place] [address] Dr. Soo Donnelly RBC 4.60 106/ul Normal 4.20-5.40 [facility] Comment on above: Performed By: #### A NAD #### [facility] [address] [place] [address] Dr. Soo Donnelly WBC 6.8 103/ul Normal 4.0-11.0 [facility] Comment on above: Performed By: #### A NAD #### [facility] [address] [place] [address] Dr. Soo Donnelly ER URINE PROFILEon 2 Bilirubin Ql (U) Negative Normal NEGATIVE [facility] Comment on above: Performed By: #### U LG, CRP #### [facility] [address] [place] [address] Dr. Soo Donnelly Clarity (U) CLEAR Normal CLEAR [facility] Comment on above: Performed By: #### U LG, CRP #### [facility] [address] [place] [address] Dr. Soo Donnelly Color (U) LT. YELLOW Normal YELLOW [facility] Comment on above: Performed By: #### U LG, CRP #### [facility] [address] [address] [address] Soo CORTEZ A micrscopic examina tion will be performed if indicated. Normal [facility] Comment on above: Performed By: #### U LG, CRP #### [facility] [address] [address] [address] Soo Donnelly Glucose Ql (U) Negative Normal NEGATIVE [facility] Comment on above: Performed By: #### U LG, CRP #### [facility] [address] [address] [address] Soo Donnelly Hemoglobin Ql (U) Negative Normal NEGATIVE [facility] Comment on above: Performed By: #### U LG, CRP #### [facility] [address] [address] [address] Soo Donnelly Ketones Ql (U) Negative Normal NEGATIVE [facility] Comment on above: Performed By: #### U LG, CRP #### [facility] [address] [address] [address] Soo Donnelly LEUKOCYTES Negative Normal NEGATIVE [facility] Comment on above: Performed By: #### U LG, CRP #### [facility] [address] [address] [address] Soo Donnelly Nitrite Ql (U) Negative Normal NEGATIVE [facility] Comment on above: Performed By: #### U LG, CRP #### [facility] [address] [address] [address] Soo Donnelly pH (U) 6.0 [pH] Normal 5-9 [facility] Comment on above: Performed By: #### U LG, CRP #### [facility] [address] [address] [address] Soo Donnelly SPEC GRAVITY 1.015 Normal 1.005-<=1. 025 [facility] Comment on above: Performed By: #### U LG, CRP #### [facility] [address] [address] [address] Soo Donnelly UA PROTEIN Negative Normal NEGATIVE/ TRACE [facility] Comment on above: Performed By: #### U LG, CRP #### [facility] [address] [place] [address] Dr. Soo Donnelly UR MICRO IND NOT INDICATED Normal [facility] Comment on above: Performed By: #### U LG, CRP #### [facility] [address] [address] [address] Soo Donnelly Urobilinogen Qn (U) 0.2 {Roma'U}/dL Normal 0.2 - 1. 0 [facility] Comment on above: Performed By: #### U LG, CRP #### [facility] [address] [place] [address] Dr. Soo Donnelly PROF CHEM 8 (BAS METB)on Anion gap [Moles/Vol] 10.2 mmol/L Normal [facility] Comment on above: Performed By: #### B MP #### [facility] [address] [place] [address] Dr. Soo Donnelly Calcium [Mass/Vol] 8.7 mg/dL Normal 8.5-10.1 [facility] Comment on above: Performed By: #### B MP #### [facility] [address] [place] [address] Dr. Soo Donnelly Chloride [Moles/Vol] 103 mmol/L Normal 98-107 [facility] Comment on above: Performed By: #### B MP #### [facility] [address] [place] [address] Dr. Soo Donnelly CO2 [Moles/Vol] 27.9 mmol/L Normal 21.0-32.0 [facility] Comment on above: Performed By: #### B MP #### [facility] [address] [place] [address] Dr. Soo Donnelly Creatinine [Mass/Vol] 0.80 mg/dL Normal 0.55-1.02 [facility] Comment on above: Performed By: #### B MP #### [facility] [address] [place] [address] Dr. Soo Donnelly EGFR-AF BOLIVIAN >60 Normal >=60 [facility] Comment on above: Performed By: #### B MP #### [facility] [address] [address] [address] Soo Donnelly EGFR-NON AF BOLIVIAN >60 Normal >=60 [facility] Comment on above: Performed By: #### B MP #### [facility] [address] [address] [address] Soo Donnelly Glucose [Mass/Vol] 103 mg/dL Normal 74-106 [facility] Comment on above: Performed By: #### B MP #### [facility] [address] [address] [address] Soo Donnelly Potassium [Moles/Vol] 4.1 mmol/L Normal 3.5-5.1 [facility] Comment on above: Performed By: #### B MP #### [facility] [address] [address] [address] Soo Donnelly Sodium [Moles/Vol] 137 mmol/L Normal 136-145 [facility] Comment on above: Performed By: #### B MP #### [facility] [address] [address] [address] Soo Donnelly Urea nitrogen [Mass/Vol] 11.0 mg/dL Normal 7.0-18.0 The [facility] Comment on above: Performed By: #### B MP #### [facility] [address] [address] [address] Soo Donnelly Urea nitrogen/Creatinine [Mass ratio] 13.8 mg/mg Normal [facility] Comment on above: Performed By: #### B MP #### [facility] [address] [address] [address] Soo Donnelly XR KUB 1 VIEWon [...] ELENA SAUCEDA Date: 2022-09-18 12:12 Normal [facility] MG MAMM SCREEN 3D DEAN CADon 09-12-2022 MG MAMM SCREEN 3D DEAN CAD Patient: HORACIO KEATING Exam Date: 09/12/2022 : 1975 Gender:F Ordering : DR DELGADO MURILLO . Admission #: [id number] Family : Order #: [id number] CLICK HERE TO VIEW EXAM RADIOLOGY REPORT [...] cancer at age 77. LOCATION: [facility] BREAST COMPOSITION: Scattered areas fibroglandular [...] on 09/13/2022 at 07:46 Normal [facility] INSULINon 07-20-2022 Insulin 25.5 uIU/mL Critically high 2.6-24.9 [facility] Comment on above: Performed By: #### U LG, CRP #### [facility] [address] [address] [address] Soo Donnelly T4 LABCORPon 07-20-2022 T4 [Mass/Vol] 7.4 ug/dL Normal 4.5-12.0 [facility] Comment on above: Performed By: #### A NAD #### [facility] [address] [address] [address] Soo Donnelly CBC W MANUAL DIFFon 08-19-20 22 ATYPICAL LYMPH # Normal [facility] Comment on above: Performed By: #### B UN, CREA #### [facility] [address] [place] [address] Dr. Soo Donnelly ATYPICAL LYMPH % Normal [facility] Comment on above: Performed By: #### B UN, CREA #### [facility] [address] [place] [address] Dr. Soo Donnelly BAND # Normal 0.0-0.3 [facility] Comment on above: Performed By: #### B UN, CREA #### [facility] [address] [place] [address] Dr. Soo Donnelly BAND % Normal 0-5 [facility] Comment on above: Performed By: #### B UN, CREA #### [facility] [address] [place] [address] Dr. Soo Donnelly BASOM # 0.00 103/ul Normal 0.00-0.10 [facility] Comment on above: Performed By: #### B UN, CREA #### [facility] [address] [place] [address] Dr. Soo Donnelly BASOM % 0.0 % Critically low 0.2-2.0 [facility] Comment on above: Performed By: #### B UN, CREA #### [facility] [address] [place] [address] Dr. Soo Donnelly BLAST # Normal [facility] Comment on above: Performed By: #### B UN, CREA #### [facility] [address] [place] [address] Dr. Soo Donnelly BLAST % Normal [facility] Comment on above: Performed By: #### B UN, CREA #### [facility] [address] [place] [address] Dr. Soo Donnelly CORRECTED WBC Normal 4.0-11.0 [facility] Comment on above: Performed By: #### B UN, CREA #### [facility] [address] [place] [address] Dr. Soo Donnelly EOS # 0.31 103/ul Normal 0.00-0.70 [facility] Comment on above: Performed By: #### B UN, CREA #### [facility] [address] [address] [address] Soo Donnelly EOS% 2.0 % Normal 0.9-7.0 [facility] Comment on above: Performed By: #### B UN, CREA #### [facility] [address] [address] [address] Soo Donnelly HCT 41.6 % Normal 36.0-48.0 [facility] Comment on above: Performed By: #### B UN, CREA #### [facility] [address] [place] [address] Dr. Soo Donnelly HGB 13.8 g/dl Normal 12.0-16.0 [facility] Comment on above: Performed By: #### B UN, CREA #### [facility] [address] [place] [address] Dr. Soo Donnelly LYMPHM # 5.27 103/ul Critically high 1.20-3.80 [facility] Comment on above: Performed By: #### B UN, CREA #### [facility] [address] [place] [address] Dr. Soo Donnelly LYMPHM% 34.0 % Normal 20.5-60.0 [facility] Comment on above: Performed By: #### B UN, CREA #### [facility] [address] [place] [address] Dr. Soo Donnelly MCH 31.5 pg Normal 26.7-34.0 [facility] Comment on above: Performed By: #### B UN, CREA #### [facility] [address] [place] [address] Dr. Soo Donnelly MCHC 33.2 g/dl Normal 29.9-35.2 [facility] Comment on above: Performed By: #### B UN, CREA #### [facility] [address] [place] [address] Dr. Soo Donnelly MCV 95.0 fL Normal 81.0-99.0 [facility] Comment on above: Performed By: #### B UN, CREA #### [facility] [address] [place] [address] Dr. Soo Donnelly METAMYELOCYTE # Normal [facility] Comment on above: Performed By: #### B UN, CREA #### [facility] [address] [place] [address] Dr. Soo Donnelly METAMYELOCYTE % Normal [facility] Comment on above: Performed By: #### B UN, CREA #### [facility] [address] [place] [address] Dr. Soo Donnelly MONOM# 0.93 103/ul Critically high 0.30-0.80 [facility] Comment on above: Performed By: #### B UN, CREA #### [facility] [address] [place] [address] Dr. Soo Donnelly MONOM% 6.0 % Normal 1.7-12.0 [facility] Comment on above: Performed By: #### B UN, CREA #### [facility] [address] [place] [address] Dr. Soo Donnelly MPV 10.1 fL Normal 9.5-13.5 [facility] Comment on above: Performed By: #### B UN, CREA #### [facility] [address] [place] [address] Dr. Soo Donnelly MYELOCYTE # Normal [facility] Comment on above: Performed By: #### B UN, CREA #### [facility] [address] [place] [address] Dr. Soo Donnelly MYELOCYTE % Normal [facility] Comment on above: Performed By: #### B UN, CREA #### [facility] [address] [place] [address] Dr. Soo Donnelly NRBC Normal [facility] Comment on above: Performed By: #### B UN, CREA #### [facility] [address] [place] [address] Dr. Soo Donnelly PLT 260 103/ul Normal 150-450 [facility] Comment on above: Performed By: #### B UN, CREA #### [facility] [address] [address] [address] Soo Donnelly RBC 4.38 106/ul Normal 4.20-5.40 [facility] Comment on above: Performed By: #### B UN, CREA #### [facility] [address] [address] [address] Soo Donnelly RDW 12.5 % Normal 11.0-15.0 [facility] Comment on above: Performed By: #### B UN, CREA #### [facility] [address] [address] [address] Soo Donnelly SEG # 8.99 103/ul Critically high 1.40-6.50 [facility] Comment on above: Performed By: #### B UN, CREA #### [facility] [address] [address] [address] Soo Donnelly SEG % 58.0 % Normal 43.0-75.0 [facility] Comment on above: Performed By: #### B UN, CREA #### [facility] [address] [address] [address] Soo Donnelly WBC 15.5 103/ul Critically high 4.0-11.0 [facility] Comment on above: Performed By: #### B UN, CREA #### [facility] [address] [address] [address] Soo Donnelly FREE T3on 07-19-2022 FREE T3 2.62 pg/mlL Normal 2.18-3.98 [facility] Comment on above: Performed By: #### U LG, CRP #### [facility] [address] [address] [address] Soo Donnelly GLYCOHEMOGLOBIN A1Con 2021 ADA RECOMMENDATION SEE BELOW Normal [facility] Comment on above: Result Comment: ADA RECOMMENDED LIMIT 4.0 - 6.0 ADA THERAPEUTIC TARGET < 7.0 ACTION SUGGESTED > 7.0 Performed By: #### U LG, CRP #### [facility] [address] [address] [address] Soo Donnelly Glucose [Mass/Vol] 137 mg/dL Normal [facility] Comment on above: Performed By: #### U LG, CRP #### [facility] [address] [address] [address] Soo Donnelly HbA1c (Bld) [Mass fraction] 6.4 % Critically high 4.5-6.2 [facility] Comment on above: Performed By: #### U LG, CRP #### [facility] [address] [address] [address] Soo Donnelly LIPID PROFILEon 07-19-2022 CHOL-HDL RATIO NORM SEE BELOW Normal [facility] Comment on above: Result Comment: 3.3 - 4.4 LOW RISK 4.4 - 7.1 AVERAGE RISK 7.1 - 11.0 MODERATE RISK >11.0 HIGH RISK Performed By: #### U LG, CRP #### [facility] [address] [address] [address] Soo Donnelly Cholesterol [Mass/Vol] 226 mg/dL Critically high <=200 [facility] Comment on above: Performed By: #### U LG, CRP #### [facility] [address] [address] [address] Soo Donnelly Cholesterol in HDL [Mass/Vol] 33 mg/dL Critically low 40-60 [facility] Comment on above: Performed By: #### U LG, CRP #### [facility] [address] [address] [address] Soo Donnelly Cholesterol in LDL [Mass/Vol] 135.2 mg/dL Normal [facility] Comment on above: Performed By: #### U LG, CRP #### [facility] [address] [address] [address] Soo Donnelly Cholesterol.total/Chol esterol in HDL [Mass ratio] 6.8 {ratio} Normal [facility] Comment on above: Performed By: #### U LG, CRP #### [facility] [address] [address] [address] Soo Donnelly HDL NORMAL > or = 60 mg/dl - LO W CARDIOVASCULAR RISK <40 mg/dl - HIGH CARDIOVASCULAR RISK Normal [facility] Comment on above: Performed By: #### U LG, CRP #### [facility] [address] [address] [address] Soo Donnelly LDL CALC NORMAL SEE BELOW Normal [facility] Comment on above: Result Comment: <100 mg/dl OPTIMAL 100 - 129 mg/dl NEAR OR ABOVE OPTIMAL 130 - 159 mg/dl BORDERLINE HIGH 160 - 189 mg/dl HIGH >190 mg/dl VERY HIGH Performed By: #### U LG, CRP #### [facility] [address] [address] [address] Soo Donnelly Triglyceride [Mass/Vol] 289 mg/dL Critically high <=150 [facility] Comment on above: Performed By: #### U LG, CRP #### [facility] [address] [address] [address] Soo Donnelly VLDL CALC 57.8 mg/dL Normal [facility] Comment on above: Performed By: #### U LG, CRP #### [facility] [address] [place] [address] Dr. Soo Donnelly PROF 14(COMP METB)on 022 Albumin [Mass/Vol] 3.2 g/dL Critically low 3.4-5.0 [facility] Comment on above: Performed By: #### U LG, CRP #### [facility] [address] [place] [address] Dr. Soo Donnelly Albumin/Globulin [Mass ratio] 1.1 {ratio} Normal [facility] Comment on above: Performed By: #### U LG, CRP #### [facility] [address] [address] [address] Soo Donnelly ALP [Catalytic activity/Vol] 41 U/L Critically low 46-116 [facility] Comment on above: Performed By: #### U LG, CRP #### [facility] [address] [place] [address] Dr. Soo Donnelly ALT [Catalytic activity/Vol] 46 U/L Normal 14-59 [facility] Comment on above: Performed By: #### U LG, CRP #### [facility] [address] [place] [address] Dr. Soo Donnelly Anion gap [Moles/Vol] 9.3 mmol/L Normal [facility] Comment on above: Performed By: #### U LG, CRP #### [facility] [address] [address] [address] Soo Donnelly AST [Catalytic activity/Vol] 18 U/L Normal 15-37 [facility] Comment on above: Performed By: #### U LG, CRP #### [facility] [address] [address] [address] Soo Donnelly Bilirubin [Mass/Vol] 0.7 mg/dL Normal 0.2-1.0 [facility] Comment on above: Performed By: #### U LG, CRP #### [facility] [address] [address] [address] Soo Donnelly Calcium [Mass/Vol] 8.1 mg/dL Critically low 8.5-10.1 [facility] Comment on above: Performed By: #### U LG, CRP #### [facility] [address] [place] [address] Dr. Soo Donnelly Chloride [Moles/Vol] 101 mmol/L Normal 98-107 [facility] Comment on above: Performed By: #### U LG, CRP #### [facility] [address] [place] [address] Dr. Soo Donnelly CO2 [Moles/Vol] 31.1 mmol/L Normal 21.0-32.0 [facility] Comment on above: Performed By: #### U LG, CRP #### [facility] [address] [address] [address] Soo Donnelly Creatinine [Mass/Vol] 0.77 mg/dL Normal 0.55-1.02 [facility] Comment on above: Performed By: #### U LG, CRP #### [facility] [address] [place] [address] Dr. Soo Donnelly EGFR-AF BOLIVIAN >60 Normal >=60 [facility] Comment on above: Performed By: #### U LG, CRP #### [facility] [address] [place] [address] Dr. Soo Donnelly EGFR-NON AF BOLIVIAN >60 Normal >=60 [facility] Comment on above: Performed By: #### U LG, CRP #### [facility] [address] [address] [address] Soo Donnelly Globulin (S) [Mass/Vol] 3.0 g/dL Normal [facility] Comment on above: Performed By: #### U LG, CRP #### [facility] [address] [address] [address] Soo Donnelly Glucose [Mass/Vol] 104 mg/dL Normal 74-106 [facility] Comment on above: Performed By: #### U LG, CRP #### [facility] [address] [address] [address] Soo Donnelly Potassium [Moles/Vol] 3.4 mmol/L Critically low 3.5-5.1 [facility] Comment on above: Performed By: #### U LG, CRP #### [facility] [address] [address] [address] Soo Donnelly Protein [Mass/Vol] 6.2 g/dL Critically low 6.4-8.2 [facility] Comment on above: Performed By: #### U LG, CRP #### [facility] [address] [address] [address] Soo Donnelly Sodium [Moles/Vol] 138 mmol/L Normal 136-145 [facility] Comment on above: Performed By: #### U LG, CRP #### [facility] [address] [address] [address] Soo Donnelly Urea nitrogen [Mass/Vol] 16.0 mg/dL Normal 7.0-18.0 [facility] Comment on above: Performed By: #### U LG, CRP #### [facility] [address] [address] [address] Soo Donnelly Urea nitrogen/Creatinine [Mass ratio] 20.8 mg/mg Normal [facility] Comment on above: Performed By: #### U LG, CRP #### [facility] [address] [address] [address] Soo Donnelly TSHon 07-19-2022 TSH 3.262 uIU/mL Normal 0.358-3.74 0 [facility] Comment on above: Performed By: #### U LG, CRP #### [facility] [address] [place] [address] Dr. Soo Donnelly CBC AUTO DIFFon 05-18-2022 BASO # 0.0 103/ul Normal 0.0-0.1 [facility] Comment on above: Performed By: #### U LG, CRP #### [facility] [address] [place] [address] Dr. Soo Donnelly Basophils/100 WBC (Bld) 0.2 % Normal 0.2-2.0 [facility] Comment on above: Performed By: #### U LG, CRP #### [facility] [address] [place] [address] Dr. Soo Donnelly EO # 0.0 103/ul Normal 0.0-0.7 [facility] Comment on above: Performed By: #### U LG, CRP #### [facility] [address] [place] [address] Dr. Soo Donnelly Eosinophils/100 WBC (Bld) 0.2 % Critically low 0.9-7.0 [facility] Comment on above: Performed By: #### U LG, CRP #### [facility] [address] [place] [address] Dr. Soo Donnelly Erythrocyte distribution width (RBC) [Ratio] 12.8 % Normal 11.0-15.0 [facility] Comment on above: Performed By: #### U LG, CRP #### [facility] [address] [place] [address] Dr. Soo Donnelly Hematocrit (Bld) [Volume fraction] 35.7 % Critically low 36.0-48.0 [facility] Comment on above: Performed By: #### U LG, CRP #### [facility] [address] [place] [address] Dr. Soo Donnelly Hemoglobin (Bld) [Mass/Vol] 11.5 g/dL Critically low 12.0-16.0 [facility] Comment on above: Performed By: #### U LG, CRP #### [facility] [address] [address] [address] Soo Donnelly IG # 0.07 10e3/ul Critically high 0.00-0.03 [facility] Comment on above: Performed By: #### U LG, CRP #### [facility] [address] [place] [address] Dr. Soo Donnelly IG % 0.5 % Normal 0.0-0.5 [facility] Comment on above: Performed By: #### U LG, CRP #### [facility] [address] [place] [address] Dr. Soo Donnelly LYMPH # 4.1 103/ul Critically high 1.2-3.8 [facility] Comment on above: Performed By: #### U LG, CRP #### [facility] [address] [place] [address] Dr. Soo Donnelly Lymphocytes/100 WBC (Bld) 28.3 % Normal 20.5-60.0 [facility] Comment on above: Performed By: #### U LG, CRP #### [facility] [address] [place] [address] Dr. Soo Donnelly MANUAL DIFF REQ NO Normal [facility] Comment on above: Performed By: #### U LG, CRP #### [facility] [address] [place] [address] Dr. Soo Donnelly MCH (RBC) [Entitic mass] 31.7 pg Normal 26.7-34.0 [facility] Comment on above: Performed By: #### U LG, CRP #### [facility] [address] [place] [address] Dr. Soo Donnelly MCHC (RBC) [Mass/Vol] 32.2 g/dL Normal 29.9-35.2 [facility] Comment on above: Performed By: #### U LG, CRP #### [facility] [address] [place] [address] Dr. Soo Donnelly MCV (RBC) [Entitic vol] 98.3 fL Normal 81.0-99.0 [facility] Comment on above: Performed By: #### U LG, CRP #### [facility] [address] [address] [address] Soo Donnelly MONO # 0.8 103/ul Normal 0.3-0.8 [facility] Comment on above: Performed By: #### U LG, CRP #### [facility] [address] [address] [address] Soo Donnelly Monocytes/100 WBC (Bld) 5.6 % Normal 1.7-12.0 [facility] Comment on above: Performed By: #### U LG, CRP #### [facility] [address] [address] [address] Soo Donnelly NEUT # 9.4 103/ul Critically high 1.4-6.5 [facility] Comment on above: Performed By: #### U LG, CRP #### [facility] [address] [place] [address] Dr. Soo Donnelly Neutrophils/100 WBC (Bld) 65.2 % Normal 43.0-75.0 [facility] Comment on above: Performed By: #### U LG, CRP #### [facility] [address] [address] [address] Soo Donnelly Platelet mean volume (Bld) [Entitic vol] 10.8 fL Normal 9.5-13.5 [facility] Comment on above: Performed By: #### U LG, CRP #### [facility] [address] [address] [address] Soo Donnelly PLT 191 103/ul Normal 150-450 [facility] Comment on above: Performed By: #### U LG, CRP #### [facility] [address] [address] [address] Soo Donnelly RBC 3.63 106/ul Critically low 4.20-5.40 [facility] Comment on above: Performed By: #### U LG, CRP #### [facility] [address] [address] [address] Soo Donnelly WBC 14.4 103/ul Critically high 4.0-11.0 [facility] Comment on above: Performed By: #### U LG, CRP #### [facility] [address] [place] [address] Dr. Soo Donnelly BUNon 05-17-2022 Urea nitrogen [Mass/Vol] 8.0 mg/dL Normal 7.0-18.0 [facility] Comment on above: Performed By: #### B UN, CREA #### [facility] [address] [place] [address] Dr. Soo Donnelly CBC AUTO DIFFon 05-17-2022 BASO # 0.0 103/ul Normal 0.0-0.1 [facility] Comment on above: Performed By: #### U LG, CRP #### [facility] [address] [place] [address] Dr. Soo Donnelly Basophils/100 WBC (Bld) 0.1 % Critically low 0.2-2.0 [facility] Comment on above: Performed By: #### U LG, CRP #### [facility] [address] [place] [address] Dr. Soo Donnelly EO # 0.0 103/ul Normal 0.0-0.7 [facility] Comment on above: Performed By: #### U LG, CRP #### [facility] [address] [place] [address] Dr. Soo Donnelly Eosinophils/100 WBC (Bld) 0.0 % Critically low 0.9-7.0 [facility] Comment on above: Performed By: #### U LG, CRP #### [facility] [address] [place] [address] Dr. Soo Donnelly Erythrocyte distribution width (RBC) [Ratio] 12.5 % Normal 11.0-15.0 [facility] Comment on above: Performed By: #### U LG, CRP #### [facility] [address] [place] [address] Dr. Soo Donnelly Hematocrit (Bld) [Volume fraction] 38.5 % Normal 36.0-48.0 [facility] Comment on above: Performed By: #### U LG, CRP #### [facility] [address] [place] [address] Dr. Soo Donnelly Hemoglobin (Bld) [Mass/Vol] 13.0 g/dL Normal 12.0-16.0 [facility] Comment on above: Performed By: #### U LG, CRP #### [facility] [address] [place] [address] Dr. Soo Donnelly IG # 0.16 10e3/ul Critically high 0.00-0.03 [facility] Comment on above: Performed By: #### U LG, CRP #### [facility] [address] [place] [address] Dr. Soo Donnelly IG % 0.7 % Critically high 0.0-0.5 [facility] Comment on above: Performed By: #### U LG, CRP #### [facility] [address] [place] [address] Dr. Soo Donnelly LYMPH # 3.0 103/ul Normal 1.2-3.8 [facility] Comment on above: Performed By: #### U LG, CRP #### [facility] [address] [place] [address] Dr. Soo Donnelly Lymphocytes/100 WBC (Bld) 12.2 % Critically low 20.5-60.0 [facility] Comment on above: Performed By: #### U LG, CRP #### [facility] [address] [place] [address] Dr. Soo Donnelly MANUAL DIFF REQ NO Normal [facility] Comment on above: Performed By: #### U GL, CRP #### [facility] [facility] [address] [place] [address] Dr. Soo Donnelly MCH (RBC) [Entitic mass] 32.4 pg Normal 26.7-34.0 [facility] Comment on above: Performed By: #### U LG, CRP #### [facility] [address] [place] [address] Dr. Soo Donnelly MCHC (RBC) [Mass/Vol] 33.8 g/dL Normal 29.9-35.2 [facility] Comment on above: Performed By: #### U LG, CRP #### [facility] [address] [place] [address] Dr. Soo Donnelly MCV (RBC) [Entitic vol] 96.0 fL Normal 81.0-99.0 [facility] Comment on above: Performed By: #### U LG, CRP #### [facility] [address] [place] [address] Dr. Soo Donnelly MONO # 1.3 103/ul Critically high 0.3-0.8 [facility] Comment on above: Performed By: #### U LG, CRP #### [facility] [address] [place] [address] Dr. Soo Donnelly Monocytes/100 WBC (Bld) 5.4 % Normal 1.7-12.0 [facility] Comment on above: Performed By: #### U LG, CRP #### [facility] [address] [place] [address] Dr. Soo Donnelly NEUT # 19.8 103/ul Critically high 1.4-6.5 [facility] Comment on above: Performed By: #### U LG, CRP #### [facility] [address] [place] [address] Dr. Soo Donnelly Neutrophils/100 WBC (Bld) 81.6 % Critically high 43.0-75.0 [facility] Comment on above: Performed By: #### U LG, CRP #### [facility] [address] [place] [address] Dr. Soo Donnelly Platelet mean volume (Bld) [Entitic vol] 10.5 fL Normal 9.5-13.5 [facility] Comment on above: Performed By: #### U LG, CRP #### [facility] [address] [place] [address] Dr. Soo Donnelly PLT 253 103/ul Normal 150-450 [facility] Comment on above: Performed By: #### U LG, CRP #### [facility] [address] [place] [address] Dr. Soo Donnelly RBC 4.01 106/ul Critically low 4.20-5.40 [facility] Comment on above: Performed By: #### U LG, CRP #### [facility] [address] [place] [address] Dr. Soo Donnelly WBC 24.3 103/ul Critically high 4.0-11.0 [facility] Comment on above: Performed By: #### U LG, CRP #### [facility] [address] [place] [address] Dr. Soo Donnelly BASO # 0.0 103/ul Normal 0.0-0.1 [facility] Comment on above: Performed By: #### U LG, CRP #### [facility] [address] [place] [address] Dr. Soo Donnelly Basophils/100 WBC (Bld) 0.1 % Critically low 0.2-2.0 [facility] Comment on above: Performed By: #### U LG, CRP #### [facility] [address] [place] [address] Dr. Soo Donnelly EO # 0.0 103/ul Normal 0.0-0.7 [facility] Comment on above: Performed By: #### U LG, CRP #### [facility] [address] [place] [address] Dr. Soo Donnelly Eosinophils/100 WBC (Bld) 0.0 % Critically low 0.9-7.0 [facility] Comment on above: Performed By: #### U LG, CRP #### [facility] [address] [place] [address] Dr. Soo Donnelly Erythrocyte distribution width (RBC) [Ratio] 12.3 % Normal 11.0-15.0 [facility] Comment on above: Performed By: #### U LG, CRP #### [facility] [address] [place] [address] Dr. Soo Donnelly Hematocrit (Bld) [Volume fraction] 41.2 % Normal 36.0-48.0 [facility] Comment on above: Performed By: #### U LG, CRP #### [facility] [address] [place] [address] Dr. Soo Donnelly Hemoglobin (Bld) [Mass/Vol] 13.5 g/dL Normal 12.0-16.0 [facility] Comment on above: Performed By: #### U LG, CRP #### [facility] [address] [address] [address] Soo Donnelly IG # 0.11 10e3/ul Critically high 0.00-0.03 [facility] Comment on above: Performed By: #### U LG, CRP #### [facility] [address] [address] [address] Soo Donnelly IG % 0.5 % Normal 0.0-0.5 [facility] Comment on above: Performed By: #### U LG, CRP #### [facility] [address] [address] [address] Soo Donnelly LYMPH # 1.6 103/ul Normal 1.2-3.8 [facility] Comment on above: Performed By: #### U LG, CRP #### [facility] [address] [place] [address] Dr. Soo Donnelly Lymphocytes/100 WBC (Bld) 7.8 % Critically low 20.5-60.0 [facility] Comment on above: Performed By: #### U LG, CRP #### [facility] [address] [address] [address] Soo Donnelly MANUAL DIFF REQ NO Normal [facility] Comment on above: Performed By: #### U LG, CRP #### [facility] [address] [address] [address] Soo Donnelly MCH (RBC) [Entitic mass] 31.8 pg Normal 26.7-34.0 [facility] Comment on above: Performed By: #### U LG, CRP #### [facility] [address] [address] [address] Soo Donnelly MCHC (RBC) [Mass/Vol] 32.8 g/dL Normal 29.9-35.2 [facility] Comment on above: Performed By: #### U LG, CRP #### [facility] [address] [place] [address] Dr. Soo Donnelly MCV (RBC) [Entitic vol] 96.9 fL Normal 81.0-99.0 [facility] Comment on above: Performed By: #### U LG, CRP #### [facility] [address] [address] [address] Soo Donnelly MONO # 0.4 103/ul Normal 0.3-0.8 [facility] Comment on above: Performed By: #### U LG, CRP #### [facility] [address] [address] [address] Soo Donnelly Monocytes/100 WBC (Bld) 2.0 % Normal 1.7-12.0 [facility] Comment on above: Performed By: #### U LG, CRP #### [facility] [address] [place] [address] Dr. Soo Donnelly NEUT # 18.1 103/ul Critically high 1.4-6.5 [facility] Comment on above: Performed By: #### U LG, CRP #### [facility] [address] [place] [address] Dr. Soo Donnelly Neutrophils/100 WBC (Bld) 89.6 % Critically high 43.0-75.0 [facility] Comment on above: Performed By: #### U LG, CRP #### [facility] [address] [place] [address] Dr. Soo Donnelly Platelet mean volume (Bld) [Entitic vol] 11.0 fL Normal 9.5-13.5 [facility] Comment on above: Performed By: #### U LG, CRP #### [facility] [address] [place] [address] Dr. Soo Donnelly PLT 223 103/ul Normal 150-450 [facility] Comment on above: Performed By: #### U LG, CRP #### [facility] [address] [place] [address] Dr. Soo Donnelly RBC 4.25 106/ul Normal 4.20-5.40 [facility] Comment on above: Performed By: #### U LG, CRP #### [facility] [address] [place] [address] Dr. Soo Donnelly WBC 20.2 103/ul Critically high 4.0-11.0 [facility] Comment on above: Performed By: #### U LG, CRP #### [facility] [address] [address] [address] Soo Donnelly CREATININEon 05-17-2022 Creatinine [Mass/Vol] 0.97 mg/dL Normal 0.55-1.02 [facility] Comment on above: Performed By: #### B UN, CREA #### [facility] [address] [address] [address] Soo Donnelly EGFR-AF BOLIVIAN >60 Normal >=60 [facility] Comment on above: Performed By: #### B UN, CREA #### [facility] [address] [address] [address] Soo Donnelly EGFR-NON AF BOLIVIAN >60 Normal >=60 [facility] Comment on above: Performed By: #### B UN, CREA #### [facility] [address] [address] [address] Soo Donnelly CTA CHEST WO W [...] ELENA SAUCEDA Date: 2022-05-17 16:40 Normal [facility] XR CHEST 2 Von 05-17-2022 [...] SAMI READER Date: 2022-05-17 16:10 Normal [facility] CBC AUTO DIFFon 05-16-2022 BASO # 0.1 103/ul Normal 0.0-0.1 [facility] Comment on above: Performed By: #### B UN, CREA #### [facility] [address] [place] [address] Dr. Soo Donnelly Basophils/100 WBC (Bld) 0.5 % Normal 0.2-2.0 [facility] Comment on above: Performed By: #### B UN, CREA #### [facility] [address] [place] [address] Dr. Soo Donnelly EO # 0.1 103/ul Normal 0.0-0.7 [facility] Comment on above: Performed By: #### B UN, CREA #### [facility] [address] [place] [address] Dr. Soo Donnelly Eosinophils/100 WBC (Bld) 1.0 % Normal 0.9-7.0 [facility] Comment on above: Performed By: #### B UN, CREA #### [facility] [address] [address] [address] Soo Donnelly Erythrocyte distribution width (RBC) [Ratio] 12.2 % Normal 11.0-15.0 [facility] Comment on above: Performed By: #### B UN, CREA #### [facility] [address] [place] [address] Dr. Soo Donnelly Hematocrit (Bld) [Volume fraction] 41.2 % Normal 36.0-48.0 [facility] Comment on above: Performed By: #### B UN, CREA #### [facility] [address] [place] [address] Dr. Soo Donnelly Hemoglobin (Bld) [Mass/Vol] 13.9 g/dL Normal 12.0-16.0 [facility] Comment on above: Performed By: #### B UN, CREA #### [facility] [address] [place] [address] Dr. Soo Donnelly IG # 0.04 10e3/ul Critically high 0.00-0.03 [facility] Comment on above: Performed By: #### B UN, CREA #### [facility] [address] [place] [address] Dr. Soo Donnelly IG % 0.4 % Normal 0.0-0.5 [facility] Comment on above: Performed By: #### B UN, CREA #### [facility] [address] [place] [address] Dr. Soo Donnelly LYMPH # 3.5 103/ul Normal 1.2-3.8 [facility] Comment on above: Performed By: #### B UN, CREA #### [facility] [address] [place] [address] Dr. Soo Donnelly Lymphocytes/100 WBC (Bld) 35.3 % Normal 20.5-60.0 [facility] Comment on above: Performed By: #### B UN, CREA #### [facility] [address] [place] [address] Dr. Soo Donnelly MANUAL DIFF REQ NO Normal [facility] Comment on above: Performed By: #### B UN, CREA #### [facility] [address] [place] [address] Dr. Soo Donnelly MCH (RBC) [Entitic mass] 31.7 pg Normal 26.7-34.0 [facility] Comment on above: Performed By: #### B UN, CREA #### [facility] [address] [place] [address] Dr. Soo Donnelly MCHC (RBC) [Mass/Vol] 33.7 g/dL Normal 29.9-35.2 [facility] Comment on above: Performed By: #### B UN, CREA #### [facility] [address] [place] [address] Dr. Soo Donnelly MCV (RBC) [Entitic vol] 94.1 fL Normal 81.0-99.0 [facility] Comment on above: Performed By: #### B UN, CREA #### [facility] [address] [place] [address] Dr. Soo Donnelly MONO # 0.5 103/ul Normal 0.3-0.8 [facility] Comment on above: Performed By: #### B UN, CREA #### [facility] [address] [place] [address] Dr. Soo Donnelly Monocytes/100 WBC (Bld) 5.4 % Normal 1.7-12.0 [facility] Comment on above: Performed By: #### B UN, CREA #### [facility] [address] [place] [address] Dr. Soo Donnelly NEUT # 5.6 103/ul Normal 1.4-6.5 [facility] Comment on above: Performed By: #### B UN, CREA #### [facility] [address] [place] [address] Dr. Soo Donnelly Neutrophils/100 WBC (Bld) 57.4 % Normal 43.0-75.0 [facility] Comment on above: Performed By: #### B UN, CREA #### [facility] [address] [place] [address] Dr. Soo Donnelly Platelet mean volume (Bld) [Entitic vol] 10.3 fL Normal 9.5-13.5 [facility] Comment on above: Performed By: #### B UN, CREA #### [facility] [address] [place] [address] Dr. Soo Donnelly PLT 235 103/ul Normal 150-450 [facility] Comment on above: Performed By: #### B UN, CREA #### [facility] [address] [place] [address] Dr. Soo Donnelly RBC 4.38 106/ul Normal 4.20-5.40 [facility] Comment on above: Performed By: #### B UN, CREA #### [facility] [address] [place] [address] Dr. Soo Donnelly WBC 9.8 103/ul Normal 4.0-11.0 [facility] Comment on above: Performed By: #### B UN, CREA #### [facility] [address] [address] [address] Soo Donnelly PREG QUANT HCGon 05-16-2022 HCG QUANT <1 Normal [facility] Comment on above: Performed By: #### U LG, CRP #### [facility] [address] [place] [address] Dr. Soo Donnelly HCG RANGE SEE BELOW Normal [facility] Comment on above: Result Comment: 5-50 0-1 WEEK 40-300 1-2 WEEKS 100-1,000 2-3 WEEKS 500-6,000 3-4 WEEKS 5,000-200,000 1-2 MONTHS 10,000-100,000 2-3 MONTHS 3,000-50,000 2ND TRIMESTER 1,000-50,000 3RD TRIMESTER Performed By: #### U LG, CRP #### [facility] [address] [place] [address] Dr. Soo Donnelly Covid-19 PCR (CVDTB)on 05-01 SARS-CoV-2 (COVID-19) RNA NOLA+probe Ql (Unsp spec) Not detected Normal NOT DETECTED [facility] Comment on above: Result Comment: This test is not yet approved or cleared by the [place] FDA. When there are no FDA-approved or cleared tests available, and other criteria are met, FDA can make tests available under an emergency access mechanism called an Emergency Use Authorization (EUA). The EUA for this test is supported by the [place] of Health and Human Service's (HHS's) declaration [...] SARS-CoV-2. Performed By: #### C VDTBH #### [facility] [address] [place] [address] Dr. Soo Donnelly TYPE AND SCREENon 05-13-2022 TYPE AND SCREEN Negative Normal [facility] Comment on above: Performed By: #### B UN, CREA #### [facility] [address] [place] [address] Dr. Soo Donnelly PAP ACOG PANEL 2: 30 to 65on 05-07-2022 . . Normal [facility] Comment on above: Result Comment: Perf ormed at: WB Performed By: #### [id number] #### [facility] [address] [place] [address] Dr. Soo Donnelly Age Gdln ACOG Testing - [facility] Comment on above: Performed By: #### [id number] #### [facility] [address] [place] [address] Dr. Soo Donnelly DIAGNOSIS: Comment Normal [facility] Comment on above: Result Comment: NEGA TIVE FOR INTRAEPITHELIAL LESION OR MALIGNANCY. Performed at: WB Performed By: #### [id number] #### [facility] [address] [place] [address] Dr. Soo Donnelly HPV Aptima Negative Normal Negative [facility] Comment on above: Result Comment: This nucleic acid amplification test detects fourteen high-risk HPV types (16,18,31,33,35,39,45,51,52,56,58,59,66,68) without differentiation. Performed at: =G Performed By: #### [id number] #### [facility] [address] [place] [address] Dr. Soo Donnelly Methodology: Comment Normal [facility] Comment on above: Result Comment: This liquid based ThinPrep(R) pap test was screened with the use of an image guided system. Performed at: WB Performed By: #### [id number] #### [facility] [address] [place] [address] Dr. Soo Donnelly Note: Comment Normal [facility] Comment on above: Result Comment: The Pap smear is a screening test designed to aid in the detection of premalignant and malignant conditions of the uterine cervix. It is not a diagnostic procedure and should not be used as the sole means of detecting cervical cancer. Both false-positive and false-negative reports do occur. . Performed at: WB Performed By: #### [id number] #### [facility] [address] [place] [address] Dr. Soo Donnelly Performed by: Comment Normal [facility] Comment on above: Result Comment: Angel Rod C2 Tactical Analysis Technician (ASCP) Performed at: WB Performed By: #### [id number] #### [facility] [address] [place] [address] Dr. Soo Donnelly Specimen adequacy: Comment Normal [facility] Comment on above: Result Comment: Sati sfactory for evaluation. Endocervical and/or squamous metaplastic cells (endocervical component) are present. Performed at: WB Performed By: #### [id number] #### [facility] [address] [place] [address] Dr. Soo Donnelly ROSS by IFAon 02-21-2022 Antinuclear Antibodies, IFA Negative Normal [facility] Comment on above: Result Comment: Nega tive <1:80 Borderline 1:80 Positive >1:80 ICAP nomenclature: AC-0 For more information about Hep-2 cell patterns use ANApatterns.org, the official website for the International Consensus on Antinuclear Antibody (ROSS) Patterns (ICAP). Performed By: #### U LG, CRP #### [facility] [address] [place] [address] Dr. Soo Donnelly ROSS DIRECTon 02-20-2022 ROSS Direct Negative Normal Negative [facility] Comment on above: Performed By: #### A NAD #### [facility] [address] [place] [address] Dr. Soo Donnelly ANTISTREPTOLYSIN O AB (ASO)o n 02-20-2022 Antistreptolysin O Ab 115.3 IU/mL Normal 0.0-200.0 Th e [facility] Comment on above: Performed By: #### B UN, CREA #### [facility] [address] [place] [address] Dr. Soo Donnelly C3 and C4 COMPLEMENTon 02-20 Complement C3, Serum 137 mg/dL Normal 82-167 [facility] Comment on above: Performed By: #### U LG, CRP #### [facility] [address] [address] [address] Soo Donnelly Complement C4, Serum 23 mg/dL Normal 12-38 [facility] Comment on above: Performed By: #### U LG, CRP #### [facility] [address] [place] [address] Dr. Soo Donnelly SLE PROFILE Aon 02-20-2022 Anti-DNA (DS) Ab Qn <1 Normal 0-9 [facility] Comment on above: Result Comment: Nega tive <5 Equivocal 5 - 9 Positive >9 Performed By: #### S YARI #### [facility] [address] [place] [address] Dr. Soo Donnelly Antichromatin Antibodies <0.2 Normal 0.0-0.9 [facility] Comment on above: Performed By: #### S YARI #### [facility] [address] [place] [address] Dr. Soo Donnelly RA Latex Turbid. <10.0 Normal <14.0 [facility] Comment on above: Performed By: #### S YARI #### [facility] [address] [place] [address] Dr. Soo Donnelly RETAIL MERCHANDISING MANAGER Antibodies <0.2 Normal 0.0-0.9 [facility] Comment on above: Performed By: #### S YARI #### [facility] [address] [place] [address] Dr. Soo Donnelly Sjogren's Anti-SS-A <0.2 Normal 0.0-0.9 [facility] Comment on above: Performed By: #### S YARI #### [facility] [address] [address] [address] Soo Donnelly Sjogren's Anti-SS-B <0.2 Normal 0.0-0.9 [facility] Comment on above: Performed By: #### S YARI #### [facility] [address] [address] [address] Soo Donnelly Spann Antibodies <0.2 Normal 0.0-0.9 [facility] Comment on above: Performed By: #### S YARI #### [facility] [address] [address] [address] Soo Donnelly CRPon 02-19-2022 CRP [Mass/Vol] mg/L Normal <=1.0 [facility] Comment on above: Performed By: #### U LG, CRP #### [facility] [address] [place] [address] Dr. Soo Donnelly URIC ACID SERUMon 02-19-2022 Urate [Mass/Vol] 4.7 mg/dL Normal 2.5-6.2 [facility] Comment on above: Performed By: #### U LG, CRP #### [facility] [address] [place] [address] Dr. Soo Donnelly XR CSPINE MIN 4 [...] ABIGAIL GONSALVES Date: 2022-02-19 16:33 Normal [facility] XR HAND DEAN MIN 3Von [...] by: ABIGAIL GONSALVES Date: 2022-02-19 16:28 Normal [facility] ASYMPTOMATIC COVID-19 ANTIGE Non 12-04-2021 EUA Statement SEE BELOW Normal [facility] Comment on above: Result Comment: This test [...] Performed By: #### C VDAGA #### [facility] [address] [place] [address] Dr. Soo Donnelly SARS-CoV-2 (COVID-19) RNA NOLA+probe Ql (Unsp spec) Negative Normal NEGATIVE [facility] Comment on above: Result Comment: Nega tive results are presumptive. They do not preclude infection and should not be used as the sole basis for treatment decisions. Additional confirmatory testing by a molecular method should be considered. Performed By: #### C VDAGA #### [facility] [address] [place] [address] Dr. Soo Donnelly [facility] SARS-CoV-2 (COVID-19) RNA NOLA+probe Ql (Unsp spec) Not detected Normal NOT DETECTED [facility] Comment on above: Result Comment: This test is not yet approved or cleared by the [place] FDA. When there are no FDA-approved or cleared tests available, and other criteria are met, FDA can make tests available under an emergency access mechanism called an Emergency Use Authorization (EUA). The EUA for this test is supported by the [place] of Health and Human Service's (HHS's) declaration [...] By: #### U LG, CRP #### [facility] [address] [place] [address] Dr. 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 Work Phone: [facility] 02-03-2025 08:24-0500 Diastolic blood pressure 76 mm[Hg] Tiesha Hughes PACKAGE SEALER MACHINE Work Phone: [facility] 02-03-2025 08:24-0500 Heart rate 75 /min Tiesha Hughes PACKAGE SEALER MACHINE Work Phone: [facility] 02-03-2025 08:24-0500 SaO2% (BldA) [Mass fraction] 97 % Tiesha Hughes PACKAGE SEALER MACHINE Work Phone: [facility] 02-03-2025 08:24-0500 Systolic blood pressure 128 mm[Hg] Tiesha Ellen PACKAGE SEALER MACHINE Work Phone: [facility] 11-22-2024 13:21-0500 Body mass index (BMI) [Ratio] 28.66 kg/m2 Delgado Lidia DO Work Phone: [facility] 11-22-2024 13:21-0500 Body weight 83.01 kg Delgado Lidia DO Work Phone: [facility] 11-22-2024 13:21-0500 Diastolic blood pressure 80 mm[Hg] Delgado Lidia DO Work Phone: [facility] 11-22-2024 13:21-0500 Systolic blood pressure 128 mm[Hg] Delgado Lidia DO Work Phone: [facility] 11-01-2024 14:30-0500 Blood Pressure Location Vinayak Baltazar [facility] 11-01-2024 14:30-0500 Diastolic blood pressure 74 mm[Hg] Vinayak Baltazar [facility] 11-01-2024 14:30-0500 Heart rate 93 /min Vinayak Baltazar [facility] 11-01-2024 14:30-0500 Respiratory rate 16 /min Vinayak Baltazar [facility] 11-01-2024 14:30-0500 Systolic blood pressure 112 mm[Hg] Vinayak Baltazar [facility] 10-20-2024 11:08-0500 Body height 167.6 cm Pmh 1 [facility] 10-20-2024 11:08-0500 Body mass index (BMI) [Ratio] 28.41 kg/m2 Pmh 1 [facility] 10-20-2024 11:08-0500 Body weight 79.83 kg Pmh 1 [facility] [employer] [facility] 10-13-2024 14:20-0500 Body height 170.2 cm Becca Schwarz ELECTRICIAN RECTIFIER [employer]NA[employer] Work Phone: [facility] 10-13-2024 14:20-0500 Body mass index (BMI) [Ratio] 28.51 kg/m2 Becca Schwarz ELECTRICIAN RECTIFIER [employer] Work Phone: [facility] 10-13-2024 14:20-0500 Body weight 82.56 kg Becca Schwarz ELECTRICIAN RECTIFIER [employer] Work Phone: [facility] 11-01-2022 15:19-0500 Blood Pressure Location Nicola CANDELARIOL [facility] 11-01-2022 15:19-0500 Diastolic blood pressure 80 mm[Hg] Nicola NILL [facility] [place] 11-01-2022 15:19-0500 Heart rate 72 /min Nicola NILL [facility] 11-01-2022 15:19-0500 Respiratory rate 16 /min Nicola NILL [facility] 11-01-2022 15:19-0500 Systolic blood pressure 118 mm[Hg] Nicola NILL [facility] 10-01-2022 16:30-0400 Body height 170.18 cm Claricesissy Carlsonly Other [employer] Other 10-01-2022 16:30-0400 Body mass index (BMI) [Ratio] 32.84 kg/m2 Clarice Scally Other [employer] Other 10-01-2022 16:30-0400 Body weight 95.12 kg Clarice Scally Other [employer] Other 10-01-2022 16:30-0400 Diastolic blood pressure 82 mm[Hg] Clarice Scally Other [facility] Other 10-01-2022 16:30-0400 Respiratory rate 18 /min Clarice Scally Other [facility] Other 10-01-2022 16:30-0400 SaO2% (BldA) [Mass fraction] 97 % Clarice Scally Other [facility] Other 10-01-2022 16:30-0400 Systolic blood pressure 116 mm[Hg] Clarice Scally Other [facility] Other 08-28-2022 14:30-0400 Body height 170.18 cm Nahidtrell Elisediff Other [employer] Other 08-28-2022 14:30-0400 Body mass index (BMI) [Ratio] 34.55 kg/m2 Nahid Darius Other [employer] Other 08-28-2022 14:30-0400 Body weight 100.06 kg Nahid Darius Other [employer] Other 08-28-2022 14:30-0400 Diastolic blood pressure 82 mm[Hg] Nahid Mccoy Other [employer] Other 08-28-2022 14:30-0400 Respiratory rate 18 /min Nahid Darius Other [employer] Other 08-28-2022 14:30-0400 SaO2% (BldA) [Mass fraction] 97 % Nahid Mccoy Other [employer] Other 08-28-2022 14:30-0400 Systolic blood pressure 121 mm[Hg] Nahid Mccoy Other [employer] Other Encounters Encounter Date Encounter Type Care Provider Facility Start: 09-14-2025 End: 09-14-2025 ambulatory Sami Mccarty MD Work Phone: [facility] Work Phone: Start: 09-14-2025 End: 09-14-2025 Departed Referred Sami Lawton MD -[facility] Start: 08-13-2025 End: 08-13-2025 ambulatory Sami Mccarty [facility] Work Phone: Start: 08-13-2025 End: 08-13-2025 Departed Referred Sami Lawton MD -LAB [facility] Start: 02-07-2025 End: 02-07-2025 ambulatory Vinayak Baltazar Facility:[facility] Start: 02-03-2025 End: 02-03-2025 Bamboo flowsheet Tiesha Hughes PACKAGE SEALER MACHINE Work Phone: [facility] Start: 02-03-2025 End: 02-03-2025 Bamboo flowsheet Tiesha Hughes PACKAGE SEALER MACHINE Work Phone: [facility] Start: 02-03-2025 End: 02-03-2025 Office outpatient visit 25 minutes Tiesha Hughes PACKAGE SEALER MACHINE Work Phone: [facility] Comment on above: LIZZETH (obstructive sle ep apnea) (Primary Dx); Hypoxia; Hypersomnia; Primary insomnia; Snoring Start: 02-03-2025 End: 02-03-2025 ambulatory TIESHA HUGHES Not Available Start: 02-01-2025 End: 02-01-2025 Patient encounter procedure [facility] [address] Work Phone: Start: 02-01-2025 End: 02-01-2025 ambulatory NON STAFF [facility] Work Phone: Start: 11-22-2024 End: 11-22-2024 Bamboo [...] 11-15-2024 End: 11-15-2024 ambulatory Hebert Jara MD Facility:[facility] Start: 11-01-2024 End: 11-01-2024 ambulatory Vinayak Baltazar Facility:[facility] Start: 11-01-2024 End: 11-01-2024 Patient encounter procedure Vinayak Baltazar [facility] Start: 10-27-2024 End: 10-27-2024 Evaluation and management of inpatient TATYANA Lawton SHEELA [facility] Start: 10-20-2024 End: 10-20-2024 ambulatory [facility] Pat Phone Call Provider 1 [facility] - Pre Admit Start: 10-20-2024 End: 10-20-2024 ambulatory SAMI Jered MCCARTY [facility] Start: 10-18-2024 End: 10-18-2024 ambulatory Hebert Jara MD Facility:[facility] Start: 10-14-2024 ambulatory Deenaparis Brettfede Painter y:Susi [facility] Start: 10-13-2024 End: 10-13-2024 Office outpatient new 30 minutes [facility] ELECTRICIAN RECTIFIER MAINTENANCE[employer] Work Phone: [facility] Comment on above: Positive fecal occul t blood test (Primary Dx); Rectal bleeding; Gastroesophageal reflux disease, unspecified whether esophagitis present Start: 10-13-2024 End: 10-13-2024 ambulatory [facility] Start: 10-04-2024 End: 10-04-2024 ambulatory Hebert Jara MD Facility:[facility] Start: 09-27-2024 End: 09-27-2024 Office outpatient visit 15 minutes Delgado Lidia DO Work Phone: [facility] Comment on above: Encounter to discuss [...] 09-20-2024 End: 09-20-2024 ambulatory Hebert Jara MD Facility:[facility] Start: 09-09-2024 End: 09-09-2024 ambulatory Carol Webb PT Work Phone: [facility] Comment on above: Neck pain (Primary D x); Chronic bilateral low back pain with bilateral sciatica Start: 09-09-2024 End: 09-09-2024 Bamboo flowsheet Carol Webb PT Work Phone: [facility] Start: 09-09-2024 End: 09-09-2024 Bamboo flowsheet Carol Webb PT Work Phone: [facility] Start: 08-30-2024 End: 08-30-2024 Departed Referred [facility] [address] Work Phone: Start: 08-30-2024 End: 08-30-2024 ambulatory NON STAFF [facility] Work Phone: Start: 04-05-2024 End: 04-05-2024 ambulatory DELGADO MURILLO Not Available Start: 03-15-2024 End: 03-15-2024 Emergency department patient visit Nicola Art Widener Facility:[facility] Start: 08-15-2023 End: 08-15-2023 ambulatory NON STAFF [facility] Work Phone: Start: 08-15-2023 End: 08-15-2023 Departed Referred [facility] [address] Work Phone: Start: 12-05-[address] SAMI MCCARTY Facility :[facility] Start: 11-09-2022 End: 11-10-[address] DOCTOR STEIN Facility:[facility] Start: 11-01-2022 End: 11-01-2022 Patient encounter procedure Nicola BUCHANAN [facility] [place] Start: 10-29-2022 End: 10-29-2022 ambulatory Clarice Hull Other [facility] Other Start: 10-29-2022 Telephone encounter Clarice [facility] Start: 10-14-2022 End: 10-14-2022 ambulatory Clarice Hull Other [facility] Other Start: 10-14-2022 Telephone encounter Clarice [facility] Start: 10-01-2022 (FCCCWMNF/U) Weight Management f/u Clarice Hull [facility] Start: 10-01-2022 End: 10-02-[address] LUZ ELENA SAUCEDA [facility] [employer] Other Start: 09-19-2022 End: 09-19-2022 ambulatory Nahid Mccoy Other [employer] Other Start: 09-19-2022 Telephone encounter Nahid [facility] Start: 09-18-2022 End: 09-18-[address] LUZ ELENA SAUCEDA Facility:[facility] Start: 09-12-2022 End: 09-13-[address] ABIGAIL GONSALVES Facility:[facility] Start: 08-28-2022 End: 08-28-2022 ambulatory Nahid Mccoy Other [facility] [employer] Other Start: 08-28-2022 Nutrition therapy Nahid Mccoy [facility] Start: 07-22-2022 Encounter for genera l adult medical examination without abnormal findings DR SAMI MCCARTY [facility] Start: 07-19-2022 End: 07-20-[address] SAMI [...] for preprocedural laboratory examination DR DELGADO MURILLO [facility] Start: 05-13-2022 End: 05-14-[address] DELGADO MURILLO Facility:[facility] Start: 05-13-2022 End: 05-14-2022 Encounter for preprocedural laboratory examination DR DELGADO MURILLO Facility:[facility] Start: 05-11-2022 Encounter for preprocedural cardiovascular examination DR DELGADO MURILLO [facility] Start: 05-08-2022 End: 05-09-[address] SAMI MCCARTY Facility:[facility] Start: 05-08-2022 End: 05-09-2022 Encounter for preprocedural cardiovascular examination DR SAIM MCCARTY Facility:[facility] Start: 05-02-2022 End: 05-02-[address] DELGADO MURILLO Facility:[facility] Start: 02-19-2022 End: 02-20-[address] SAMI MCCARTY Facility:[facility] Start: 12-04-2021 End: 12-04-[address] SAMI MCCARTY Facility:[facility] Procedures Date Procedure Procedure Detail Performing Clinician Start: 08-13-2025 Urine culture Sami justice MD Work Phone: Start: 01-28-2025 Mammography Tiesha dillon PACKAGE SEALER MACHINE Work Phone: Start: 11-22-2024 IGP,APTIMA HPV,AGE GDLN Delgado Mcgrathzio DO Work Phone: Start: 11-22-2024 Microscopic observat ion [Identifier] in Cervix by Cyto stain Tiesha Hughes PACKAGE SEALER MACHINE Work Phone: Start: 10-27-2024 Colonoscopy Delgado Ramilaaly burnette DO Work Phone: Start: 11-27-2023 Mammography [...] CANDELARIOL Extraction of wisdom tooth Jered BUCHANAN H/O: [...] C SECTION LIPOMA EXCISION 4 Nicola MARCELLE KEBEDE Comment on above: ABDOMEN X3 REPAIR FOR TMJ Nicola BUCHANAN Plan of Treatment Date Care Activity Detail Author Start: 10-27-2034 Screening for malignant neoplasm of colon [facility] Start: 05-28-2031 Screening for malignant neoplasm of colon [facility] Start: 10-23-2028 Screening for malignant neoplasm of cervix [facility] Start: 11-22-2027 Screening for malignant neoplasm of cervix Pap Smear [facility] Start: 10-23-2026 Screening for malignant neoplasm of cervix Pap Smear [facility] Start: 05-28-2026 Screening for malignant neoplasm of colon Colonoscopy [facility] Start: 01-28-2026 Screening for malignant neoplasm of breast Mammogram [facility] Start: 10-13-2025 Adult BMI Screening Adult BMI Screening [facility] Start: 10-13-2025 Tobacco Screening Tobacco Screening [facility] Start: 09-14-2025 Urine culture [facility] Start: 09-14-2025 Bacteria identified in Urine by Culture Urine Culture [facility] Start: 08-13-2025 Bacteria identified in Urine by Culture Urine Culture [facility] Start: 08-13-2025 Urine culture [facility] Start: 03-24-2025 End: 03-24-2025 Patient encounter procedure 03/24/2025 10:00 AM EDT Office Visit [facility] [address] [place] [address] Tiesha Hughes, URSZULA [address] [place] [address] [facility] Start: 02-03-2025 End: 02-03-2025 Patient encounter procedure 02/03/2025 8:20 AM EST Office Visit [facility] [address] [facility] [address] [place] [address] Tiesha Hughes NP [address] [place] [address] Arrived [facility] Comment on above: Arrived Start: 02-01-2025 Aldolase measurement [facility] Start: 02-01-2025 Hemolytic complement CH50 level [facility] Start: 02-01-2025 [facility] Start: 11-27-2024 Screening for malignant neoplasm of breast Mammogram [facility] Start: 11-22-2024 End: 01-23-2026 MG Breast - bilateral Screening Bilateral screening mammogram Imaging Routine Breast cancer screening by mammogram Expected: 11/22/2024 (Approximate), Expires: 01/23/2026 [facility] Work Phone: Comment on above: Expected: 11/22/2024 (Approximate), Expi res: 01/23/2026 Start: 11-22-2024 End: 11-22-2024 Patient encounter procedure [facility] Comment on above: Arrived Start: 10-27-2024 End: 10-27-2024 Admission to same day surgery center [facility] Comment on above: ESOPHAGOGASTRODUODENOSCOPY DIAGNOSTIC [4 3235 (CPT )] Start: 10-27-2024 End: 10-27-2024 Colonoscopy flx dx w/collj spec when pfd [facility] Start: 10-27-2024 End: 10-27-2024 Esophagogastroduodenoscopy transoral diagnostic [facility] Start: 10-27-2024 Subsequent hospital visit by physician [facility] Start: 10-26-2024 End: 10-26-2024 Patient encounter procedure 10/26/2024 1:45 PM EST Office Visit [facility] [address] [place] [id number] Becca Schwarz, ELECTRICIAN RECTIFIER MAINTENANCE[employer] ATTENDANT [address] [place], [place] [id number] [facility] Start: 10-20-2024 End: 10-20-2024 ambulatory 10/20/2024 4:20 PM EST Support Visit [facility] - Pre Admit [address] [place] [phone] [facility] Start: 09-27-2024 End: 09-27-2024 Patient encounter procedure 09/27/2024 3:10 PM EDT Office Visit [facility] [address] [place] [phone] Delgado Murillo, DO [address] [place] [address] Arrived [facility] Comment on above: Arrived Start: 09-09-2024 End: 09-09-2024 ambulatory 09/09/2024 4:00 PM EDT Evaluation [facility] [address] [place] [address] Miguel AngelCarol Paris, PT [address] [place] [address] Arrived [facility] Comment on above: Arrived Start: 08-01-2024 COVID-19 Vaccine () COVID-19 Vaccine () [facility] Start: 08-01-2024 Influenza vaccination [facility] Start: 1995 DTaP,Tdap and Td Vaccines (1 - Tdap) DTaP,Tdap and Td Vaccines (1 - Tdap) [facility] Start: 1994 Adult BMI Follow Up Plan Adult BMI Follow Up Plan [facility] Start: 1988 Depression Screening Depression Screening [facility] Start: 1976 Screening for malignant neoplasm of colon [facility] Start: 1976 Tobacco Counseling Tobacco Counseling [facility] CHLAMYDIA TRACHOMATI S (GENITO/STI) CHLAMYDIA TRACHOMATIS (GENITO/STI) Lab Routine Vaginal spotting Ordered: 09/27/2024 [facility] Comment on above: Ordered: 09/27/2024 End: 10-13-2025 EGD / Colonoscopy EGD / Colonoscopy GI Routine Positive fecal occult blood test 1 Occurrences starting 10/13/2024 until 10/13/2025 [facility] Work Phone: Comment on above: 1 Occurrences starting 10/13/2024 until 10/13/2025 Neisseria gonorrhoea e DNA [Presence] in Unspecified specimen by NOLA with probe detection Neisseria gonorrhea DNA probe, direct Lab Routine Vaginal spotting Ordered: 09/27/2024 [facility] Comment on above: Ordered: 09/27/2024 SURESWAB(R) ADVANCED VAGINITIS PLUS, TMA SURESWAB(R) ADVANCED VAGINITIS PLUS, TMA Pathology and Cytology Routine Vaginal spotting Ordered: 09/27/2024 [facility] [employer] Work Phone: Comment on above: Ordered: 09/27/2024 THIN PREP TIS PAP AND HR HPV DNA THIN PREP TIS PAP AND HR HPV DNA Pathology and Cytology Routine Well woman exam with routine gynecological exam H/O: hysterectomy Ordered: 11/22/2024 [facility] [employer] Comment on above: Ordered: 11/22/2024 Immunizations Immunization Date Immunization Notes Care Provider Ramila narvaez 02-15-2018 SARS-CoV-2 mRNA (dflsjsybwtj-fphe-gfop ose) vaccine Vinayak Westfede [facility] 10-02-2004 influenza virus vaccine, unspecified formulation Becca NUNEZ [facility] [employer] NEGATED: Highlighted row has not occurred!11-01-2022 influenza virus vaccine, unspecified formulation Nicola BUCHANAN General Surgery [place] Payers Date Payer Category Payer Self-pay [id number] 2023 Private Health Insurance [employer] [id number] 2023 Unknown [id number] [id number]. [id number] 2014 Commercial Managed C are - PPO [employer] [id number]. [id number] 1976 Unknown [id number] 2.16.840.1.200683.3.579.2. 59 1976 Unknown [id number] 2.16840.1.195154.3.579.2. 59 1976 Unknown [id number] 2.16840.1.930043.3.579.2. 59 1976 Unknown [id number] 2.16.840.1.743269.3.579.2. 59 1976 Unknown [id number] 2.16.840.1.516528.3.579.2. 593 1976 Unknown [id number] 2.16.840.1.708930.3.579.2. 59 1976 Unknown [id number] 2.16.840.1.025479.3.579.2. 59 1976 Unknown [id number] 2.16.840.1.847499.3.579.2. 59 1976 Unknown [id number] 2.16.840.1.626466.3.579.2. 593 1976 Unknown [id number] 2.16.840.1.285111.3.579.2. 59 1976 Unknown [id number] 2.16.840.1.252138.3.579.2. 59 1976 Unknown [id number] 2.16.840.1.047254.3.579.2. 59 1976 Unknown [id number] 2.16.840.1.033434.3.579.2. 593 1976 Unknown [id number] 2.16.840.1.688205.3.579.2. 593 1976 Unknown [id number] 2.16.840.1.211349.3.579.2. 718 1976 Unknown [id number] 2.16.840.1.111876.3.579.2. 1286 1976 Unknown [id number] 2.16.840.1.465572.3.579.2. 1286 1976 Unknown [id number] 2.16.840.1.650141.3.579.2. 1286 1976 Unknown [id number] 2.16.840.1.770861.3.579.2. 196 1976 Unknown [id number] 2.16.840.1.320762.3.579.2. 196 1976 Unknown [id number] 2.16.840.1.971780.3.579.2. 196 1976 Unknown [id number] 2.16.840.1.687567.3.579.2. 196 1976 Unknown [id number] 2.16.840.1.747635.3.579.2. 1259 1976 Unknown [id number] 2.16.840.1.984028.3.579.2. 1259 1976 Unknown [id number] 2.16.840.1.231525.3.579.2. 1259 1976 Unknown [id number] 2.16.840.1.007763.3.579.2. 1258 1976 Unknown [id number] 2.16.840.1.650104.3.579.2. 1258 1976 Unknown [id number] 2.16.840.1.908325.3.579.2. 727 1976 Unknown [id number] 2.16.840.1.279777.3.579.2. 727 1959 Self-pay [id number] 1959 Unknown [id number] 2.16.840.1.270593.19 Unknown [id number] 2.16.840.1.328230.3.579.2. 531 Unknown [id number] 2.16.840.1.970483.3.579.2. 531 Unknown [id number] 2.16.840.1.779916.3.579.2. 531 Social History Date Type Detail Facility Unknown if ever smoked [employer] Other Start: 10-20-2023 End: 02-03-2025 Sex Assigned At [facility] Start: 11-01-2022 Tobacco smoking status Ex-smoker (finding) [facility] [place] Tobacco smoking status Former sm okeless tobacco user, quit more than 30 days ago [facility] Start: 1975 Sex Assigned At Female [facility] Start: 06-25-2023 Tobacco smoking status MNIS Smokes [...] o r e-cigarette use Smokeless Tobacco Use:. [facility] Tobacco smoking status No Smokin g Status Entered [facility] Start: 10-13-2024 End: 10-20-2024 Tobacco smoking status NHIS Occasional tobacco smoker [facility] History of tobacco use [place] Start: 10-13-2024 End: 10-20-2024 Tobacco use and exposure Smokeless tobacco non-user [facility] Start: 10-13-2024 Alcoholic beverage intake Current non-drinker of alcohol (finding) [facility] Start: 07-06-2015 End: 02-01-2025 Sex Female (finding) [employer] [facility] Start: 12-06-2022 Gender identity Identifies as female gender (finding) [facility] Start: 12-06-2022 Sexual orientation Homosexual (finding) [employer] [facility] Start: 10-20-2024 Alcohol Comment rare [facility] Work Phone: Functional Status Date Assessment Result Facility 11-01-2024 Functional Status N/A [facility] 11-01-2022 Functional Status N/A [...] 2006 laparoscopy-operative POLYPECTOMY 2005 uterine polyp removal [place] LAP,CHOLECYSTECTOMY 2003 [place] LIGATION,FALLOPIAN TUBE W/ 2006 c-sec w/tubal [place] TMJ ARTHROSCOPY/SURGERY 1996 SHOULDER ARTHROSCOPY Left REVIEW [...] nursing note reviewed. Exam conducted with a coffee blender present. Vitals: Estimated body mass index is [...] send progesterone/testosterone cream to [facility] for patient. Orders Placed This Encounter Procedures Bilateral screening mammogram Follow Up: Patient is to return in one year for annual unless needed otherwise. Documented by Franci Sutton MA on behalf of: Delgado Murillo DO documented in this encounter [facility] 10-20-2024 Nurse Note Preoperative Education Checklist- General Surgery date: 10/27/24 Surgery time: 1045a Arrival time: 845a 1. Bring a photo ID and your insurance card with you the day of surgery. You will check in at the main lobby of the [facility]- registration desk is straight ahead as soon as you walk in. Tell them you are here for surgery. 2. If you have a Living Will/Durable Power of Rate Inserter for Health Care that is not on [...] after you have bathed. 5. NO nail venezuelan/acrylic on at least one finger. If you are having a hand, wrist or foot surgery then all nail venezuelan and artificial/acrylic nails must be removed from [...] please call the Preadmission Testing office at [phone], Mon.-Fri. 7 a.m.-3 p.m. Leave a voicemail [...] Stop taking 0 days prior to procedure [facility] 10-20-2024 Miscellaneous Notes Preoperative Education Checklist- General Surgery date: 10/27/24 Surgery time: 1045a Arrival time: 845a 1. Bring a photo ID and your insurance card with you the day of surgery. You will check in at the main lobby of the [facility]- registration desk is straight ahead as soon as you walk in. Tell them you are here for surgery. 2. If you have a Living Will/Durable Power of Rate Inserter for Health Care that is not on [...] after you have bathed. 5. NO nail venezuelan/acrylic on at least one finger. If you are having a hand, wrist or foot surgery then all nail venezuelan and artificial/acrylic nails must be removed from [...] please call the Preadmission Testing office at [phone], Mon.-Fri. 7 a.m.-3 p.m. Leave a voicemail [...] prior to procedure documented in this encounter [facility] 10-13-2024 History of Presen t illness [...] 05/28/2021 Performed by Nicola Gee DO at [facility] COLONOSCOPY N/A 05/04/2018 Performed by Nicola Gee DO at [facility] CYST REMOVAL from uterus and ovaries x 5 EGD N/A 05/04/2018 Performed by Nicola Gee DO at [facility] ESOPHAGOGASTRODUODENOSCOPY N/A 05/28/2021 Performed by Nicola Gee DO at [facility] KNEE ARTHROSCOPY Left KNEE ARTHROSCOPY Right [...] muscle spasms., Disp: , Rfl: peg 3350-sod sulf,rcuq-olk-vqc 178.7-7.3-0.5 gram recon soln, Take 1 kit [...] patient/family/caregiver Referring and communicating with other health emergency care attendant Positive fecal occult blood test [R19.5] MAYRA VIEIRA [facility] Physicians General Surgery [place] This note was created with the assistance of a speech recognition program. While intending to generate a timely document that accurately reflects the content of the visit, no guarantee can be provided that every grammatical or spelling mistake has been or will be identified or corrected. Thank you for your understanding. MAYRA Vieira 10/13/24 1513 documented in this encounter [facility] 09-27-2024 History of Presen t illness [...] 2006 laparoscopy-operative POLYPECTOMY 2005 uterine polyp removal [place] LAP,CHOLECYSTECTOMY 2003 [place] LIGATION,FALLOPIAN TUBE W/ 2006 c-sec w/tubal [place] TMJ ARTHROSCOPY/SURGERY 1996 SHOULDER ARTHROSCOPY Left REVIEW [...] nursing note reviewed. Exam conducted with a coffee blender present. Vitals: Estimated body mass index is [...] No resulting surgeries. 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 Also notes poor balance with no diagnosed [...] Keep all follow-up visits. Medicines ? Take klsv-jfo-qbusavp and prescription medicines only as told by [...] work harder to (more content not included)... [facility] 10-01-2022 Evaluation note Encounter Date Diagnosis [...] was counseling done by myself, Ann ANGLIN. [facility] Other 09-28-2022 Evaluation note* Encounter Date Diagnosis Assessment Notes Treatment Notes Treatment Clinical Notes Aug, Abnormal weight gain (ICD-10 - R63.5) Aug, Prediabetes (ICD-10 - R73.03) Aug, Mixed hyperlipidemia (ICD-10 - E78.2) Aug, Hypertension (ICD-10 - I10) Aug, Obstructive sleep apnea (ICD-10 - G47.33) Aug, GERD (gastroesophageal reflux disease) (ICD-10 - K21.9) Aug, Metabolic syndrome X (ICD-10 - E88.81) [facility] Other 06-16-2022 NoteDISCHARGE SUMMARY DISCHARGE DATE: 05/18/2022 [...] pain free and no longer on narcotics. [facility] Signed and Approved by: DR DELGADO MURILLO . 05/20/2022 07:51:00[facility] [id number] NoteThe [place], [place] NAME: HORACIO PUGH DATE OF : MEDICAL REC#: [id number] BASIN FINISH OPERATOR TIG WELDER: 160[facility] ADMIT DATE: 05/16/2022 11:05:00 NAIL TECH DATE: 05/17/2022 21:20 DICTATING PHYSICIAN: DELGADO MURILLO DICTATION DATE: 05/16/2022 15:02 OP Note OPERATION DATE: 05/16/2022 PROCEDURE: Supracervical hysterectomy with left salpingo-oophorectomy with right salpingectomy and right ovarian cystotomy of approximately 3 cm cyst. SURGEON: Delgado Murillo D.O. SHIPPING AND RECEIVING CLERK: SHUKRI Bailon URINE OUTPUT: Yellow and clear. [...] Approved by: DR DELGADO MURILLO . 05/23/2022 10:30:00[facility] No data available for this section General Surgery [place] Evaluation + Plan note Future Appointments Appointment Date:02/07/2025 02:15:00 PM Scheduled Provider:Vinayak Baltazar MD Location:[facility] [place] Digestive Health Appointment Type:[facility] Follow Up Future Scheduled Tests Laboratory* Antimitochondrial Antibody, Quantitative 11/01/24 * Smooth Muscle Antibody Screen 11/01/24 * IgA, Quant. 11/01/24 * IgG, Quant. 11/01/24 * t-Transglutaminase IgA 11/01/24 * Comprehensive Metabolic Panel 11/01/24 * Comprehensive Metabolic Panel 12/02/24 * Comprehensive Metabolic Panel 01/02/25 [facility] Digestive Health Evaluation noteNo InformationNort Via [employer] Other Evaluogkzx noteNo assessment information available [facility] Work Phone: Evaluurutp note* Diagnosis Neck pain- Primary Cervicalgia Chronic bilateral low back pain with bilateral sciatica [facility] Diagnosis Encounter to discuss test results Other specified counseling Vaginal spotting Other specified noninflammatory disorder of vagina Hot flashes due to surgical menopause Surgical menopause documented in this encounter [facility] HealthcareEvaluation note* Diagnosis Well woman exam with routine gynecological exam Routine gynecological examination H/O: hysterectomy Acquired absence of both cervix and uterus Breast cancer screening by mammogram Yeast infection documented in this encounter [facility] HealthcareEvaluation note* Diagnosis Positive fecal occult blood test- Primary Rectal bleeding Hemorrhage of rectum and anus Gastroesophageal reflux disease, unspecified whether esophagitis present documented in this encounter [facility] SystemEvaluation note* Diagnosis LIZZETH (obstructive sleep apnea)- Primary Obstructive sleep apnea (adult) (pediatric) Hypoxia Hypoxemia Hypersomnia Hypersomnia, unspecified Primary insomnia Persistent disorder of initiating or maintaining sleep Snoring Other dyspnea and respiratory abnormality documented in this encounter [facility] HealthcareHistory general Narrative - Reported* Type Description [...] History TMJ surgery Hospitalization History see above [facility] Other History general Narrative - Reported* Type [...] see above Hospitalization History ER-abd . [facility]22 [facility] Other Hospital Discharge instructions No data available for this section General Surgery [place] InstructionsNot on filedocumented in this encounter [facility] CenterCityVoz SystemInstructionsNot on filedocumented in this encounter [facility] [employer] SystemProgress note No data available for this section General Surgery [place] Reason for referral (narrative)No reason for referral information [facility]Mer[facility] Work Phone: Summary Purpose Family History Relationship Condition Age at Onset Recorded Date/T lewis aunt Obesity Unknown father Diabetes mellitus Unknown Unknown Obesity Unknown grandparent Obesity Unknown mother Diabetes mellitus Unknown Family history of lung cancer Unknown Malignant neoplasm Unknown Advance Directives Advance Directive Response Recorded Date/ Time Advance Directives No February 02 10:30am Chief Complaint and Reason for Visit Chief Complaint WELLNESS Chief Complaint [facility] Chief Complaint Admit Date Unknown August 13, 2025 11:48am Chief Complaint Admit Date Unknown August 13, 2025 11:48am Unknown September 14, 2025 4 :54pm Additional Source Comments REASON FOR VISIT (unrecogniz ed section and content) Specialty Diagnoses / Procedures Referred By Teja vidal Referred To Contact Physical Therapy Diagnoses Other spondylosis, lumbar region Procedures [place] PHYS THERAPY EVALUATION Edwige Magaña MD [facility] [place] [address] Carol Webb, PT [address] [place] [address] Referral ID Status Reason Start Date Expiration Date V isits Requested Visits Authorized [id number] Authorized 09/02/2024 03/01/2025 40 40 Reason Comments [...] Care Provider Active Dedrick Fuller DO [facility] Attending Provider Active Team Status: Inactive Member Role Status Dates NON STAFF Primary Care Provider Active Start: August 30, 2024 End: August 30, 2024 Dedrick CID DO [facility] Attending Provider Active Start: August 30, 2024 End: August 30, 2024 Rehabilitation Coordinator Relationship Specialty Start Date End Date Sami Mccarty MD [address] [facility] [place] [id number] PCP - General Family Medicine 06/26/23 Rehabilitation Coordinator Relationship Specialty Start Date End Date Sami Mccarty MD [address] [place] [address] PCP - General Family Medicine 06/26/23 Rehabilitation Coordinator Relationship Specialty Start Date End Date Sami Mccarty MD [address] [place] [facility] [place] [address] PCP - General Family Medicine 06/26/23 Rehabilitation Coordinator Relationship Specialty Start Date End Date Sami Mccarty MD [address] [place] [address] PCP - General Family Medicine 06/26/23 Rehabilitation Coordinator Relationship Specialty Start Date End Date Sami Mccarty MD [address] [place] [address] PCP - General Family Medicine 06/26/23 Rehabilitation Coordinator Relationship Specialty Start Date End Date Sami Mccarty MD PCP - General 05/04/18 Rehabilitation Coordinator Relationship Specialty Start Date End Date Sami Mccarty MD PCP - General 05/04/18 Rehabilitation Coordinator Relationship Specialty Start Date End Date Sami Mccarty MD [address] [place] [address] PCP - General Family Medicine 06/26/23 Tiesha Hughes NP [address] Nurse Practitioner Neurology 02/03/25 Shasha White DO [address] [place] [address] Referring Physician Neurology 02/03/25 Rehabilitation Coordinator Relationship Specialty Start Date End Date Sami Mccarty MD [address] [facility] [place] [address] PCP - General Family Medicine 06/26/23 Tiesha Hughes NP [address] [place] Nurse Practitioner Neurology 02/03/25 Shasah White DO [address] [place] [address] Referring Physician Neurology 02/03/25 Team Status: Inactive Member Role Status Dates NON STAFF Primary Care Provider Active Start: February 01, 2025 End: February 01, 2025 Carol Vidal MD Attending Provider Active St art: February 01, 2025 End: February 01, 2025 Team Status: Inactive Member Role Status Dates Sami Mccarty MD Attending Provider Active Sta rt: August 13, 2025 End: August 13, 2025 Team Status: Inactive Member Role Status Dates Sami Mccarty MD Attending Provider Active Sta rt: September 14, 2025 End: September 14, 2025 INFORMATION SOURCE (unrecogn ized section and content) DATE CREATED AUTHOR [facility]/03/2022 [facility] DATE CREATED AUTHOR AUTHOR'S ORGANIZ ATION 03/21/2024 [facility] DATE CREATED AUTHOR AUTHOR'S ORGANIZ ATION 10/15/2024 [facility] DATE CREATED AUTHOR AUTHOR'S ORGANIZ ATION 11/12/2024 [facility] DATE CREATED AUTHOR AUTHOR'S ORGANIZ ATION 11/24/2024 [facility] DATE CREATED AUTHOR AUTHOR'S ORGANIZ ATION 02/05/2025 [facility] DATE CREATED AUTHOR AUTHOR'S ORGANIZ ATION 02/09/2025 [facility] [place] DATE CREATED AUTHOR AUTHOR'S MANDO MARISCAL 08/15/2025 [facility] Goals (unrecognized section and content) Goals [...] BE BASED ON THE PRIMARY CLINICAL RECORDS. [facility] [employer] [facility]. provides no warranty or guarantee of the accuracy or completeness of information in this document.
--- NOTE | 2025-09-16 14:16 | ED.GENADUL1 ---
HPI HPI - General Adult General Chief complaint: Skin/Abscess/Foreign Body Stated complaint: URINARY ISSUES Time Seen by Provider: 09/16/25 14:05 Source: patient Mode of arrival: walk-in History of Present Illness HPI narrative: 50-year-old female presents here with a chief complaint of rash to the genital area. She states she developed bumps 48 hours ago. She states she started with 1 bump and woke up yesterday with worsening symptoms and today has a full phone outbreak. She denies known history of herpetic lesions in the past. She does have a history of hidradenitis. Patient states she is currently being treated for a UTI per Dr. Marinelli. She has taken doxycycline and Cipro. She states she has some difficulty with urination due to the sores. Related Data Home Medications ?Medication ?Instructions ?Recorded ?Confirmed alprazolam 0.25 mg tablet 0.25 mg PO TID 03/27/24 09/16/25 omeprazole 40 mg capsule,delayed 40 mg PO BID 03/27/24 09/16/25 release aspirin 325 mg tablet 325 mg PO DAILY 09/02/24 11/15/24 dextroamphetamine-amphetamine 30 30 mg PO DAILY 09/02/24 09/16/25 mg tablet (Adderall) lisinopril 20 mg tablet 10 mg PO DAILY 09/02/24 09/16/25 metoprolol tartrate 75 mg tablet 75 mg PO BID 09/02/24 09/16/25 semaglutide 0.25 mg or 0.5 mg (2 0.25 mg subcut QWEEK 09/02/24 09/16/25 mg/3 mL) subcutaneous pen injector (Ozempic) tizanidine 4 mg tablet (Zanaflex) 4 mg PO TID PRN muscle spasticity 09/20/24 09/16/25 celecoxib 100 mg capsule mg 10/18/24 estradiol 0.5 mg tablet (Estrace) 1 mg PO DAILY 10/18/24 09/16/25 lamotrigine 25 mg tablet (Lamictal) 25 mg PO DAILY 10/18/24 09/16/25 Held on 09/16/25. Instructions: Order Change ciprofloxacin HCl 500 mg tablet 500 mg PO Q12H 09/16/25 09/16/25 doxycycline hyclate 100 mg capsule 100 mg PO Q12H 09/16/25 09/16/25 mirabegron 25 mg tablet,extended 25 mg PO Q24H 09/16/25 09/16/25 release 24 hr Previous Rx's ?Medication ?Instructions ?Recorded acyclovir 400 mg tablet 400 mg PO Q8H #30 tabs 09/16/25 Allergies Allergy/AdvReac Type Severity Reaction Status Date / Time nitrofurantoin (From Allergy Mild Anaphylaxis Verified 09/16/25 13:35 Macrobid) albuterol AdvReac Severe convulsions Verified 09/16/25 13:35 pecan Allergy Unknown Anaphylaxis Uncoded 09/16/25 13:35 Opioid HPI Opioid Management Most Recent Opioid Data: Last Pain Scale 5 11/15/24, 07:57 PFSH PFSH Medical History Upper back pain ?M54.9 - Dorsalgia, unspecified (ICD-10) Low back pain ?M54.50 - Low back pain, unspecified (ICD-10) Neck pain ?M54.2 - Cervicalgia (ICD-10) Osteoarthritis ?M19.90 - Unspecified osteoarthritis, unspecified site (ICD-10) TMJ (temporomandibular joint disorder) ?M26.609 - Unspecified temporomandibular joint disorder, unspecified side (ICD-10) 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, unspecified (ICD-10) Heartburn ?R12 - Heartburn (ICD-10) Acid reflux ?K21.9 - Gastro-esophageal reflux disease without esophagitis (ICD-10) Obesity ?E66.9 - Obesity, unspecified (ICD-10) Diabetes ?E11.9 - Type 2 diabetes mellitus without complications (ICD-10) Former smoker ?Z87.891 - Personal history of nicotine dependence (ICD-10) Sleep apnea ?G47.30 - Sleep apnea, unspecified (ICD-10) Hypertension ?I10 - Essential (primary) hypertension (ICD-10) High cholesterol ?E78.00 - Pure hypercholesterolemia, unspecified (ICD-10) Surgical History S/P excision of lipoma ?Z98.890 - Other specified postprocedural states (ICD-10) ?Z86.018 - Personal history of other benign neoplasm (ICD-10) S/P left knee arthroscopy ?Z98.890 - Other specified postprocedural states (ICD-10) Hx laparoscopic cholecystectomy ?Z90.49 - Acquired absence of other specified parts of digestive tract (ICD-10) H/O breast surgery ?Z98.890 - Other specified postprocedural states (ICD-10) H/O laparoscopy ?Z98.890 - Other specified postprocedural states (ICD-10) H/O: ?Z98.891 - History of uterine scar from previous surgery (ICD-10) H/O abdominoplasty ?Z98.890 - Other specified postprocedural states (ICD-10) H/O: hysterectomy ?Z90.710 - Acquired absence of both cervix and uterus (ICD-10) Social History Little interest or pleasure in doing things: not at all Feeling down, depressed, or hopeless: not at all Exam Narrative Exam Narrative: All Systems are negative except as noted/marked.All systems reviewed and otherwise negative Nurses note and vital signs reviewed and patient is not hypoxic. General: The patient appears well and in no apparent distress. Patient is resting comfortably on cart. Skin: Warm, dry, no pallor noted. There is no rash noted. Head: Normocephalic, atraumatic Eye: Normal conjunctiva, no drainage, EOMI. PERRL Ears, Nose, Mouth, and Throat: oral mucosa is moist. Nares patent. Mouth without vesicles. Ear canals patent. Tm's without Erythema Cardiovascular: Regular Rate and Rhythm Respiratory: Patient is in no distress, no accessory muscle use, lungs are clear to auscultation, no wheezing, rales or rhonchi Back: non-tender, no CVA tenderness bilaterally to percussion. GI: Normal bowel sounds, no tenderness to palpation, no masses appreciated. No rebound, guarding, or rigidity noted. gu: Genital lesions noted consistent with herpes, red irritation and painful lesions, drainage noted Musculoskeletal: The patient has no evidence of calf tenderness, no pitting edema, symmetrical pulses noted bilaterally Neurological: A&O x4, normal speech Psychiatric: Cooperative Constitutional Vital Signs, click to edit/add: Last Vital Signs Temp 98.1 F 10/17/25 13:36 Pulse 80 09/16/25 13:36 Resp 16 09/16/25 13:36 BP 131/88 09/16/25 13:36 Pulse Ox 99 09/16/25 13:36 O2 Del Method Room Air 09/16/25 13:36 Course Vital Signs Vital signs: Vital Signs Temperature 98.1 F 09/16/25 13:36 Pulse Rate 80 09/16/25 13:36 Respiratory Rate 16 09/16/25 13:36 Blood Pressure 131/88 09/16/25 13:36 Pulse Oximetry 99 09/16/25 13:36 Oxygen Delivery Method Room Air 09/16/25 13:36 Temperature 98.1 F 09/16/25 13:36 Pulse Rate 80 09/16/25 13:36 Respiratory Rate 16 09/16/25 13:36 Blood Pressure 131/88 09/16/25 13:36 Pulse Oximetry 99 09/16/25 13:36 Oxygen Delivery Method Room Air 09/16/25 13:36 Medical Decision Making MDM Narrative Medical decision making narrative: 50-year-old female presents here with a chief complaint of rash to the genital area. She states she developed bumps 48 hours ago. She states she started with 1 bump and woke up yesterday with worsening symptoms and today has a full phone outbreak. She denies known history of herpetic lesions in the past. She does have a history of hidradenitis. Patient states she is currently being treated for a UTI per Dr. Marinelli. She has taken doxycycline and Cipro. She states she has some difficulty with urination due to the sores. Patient presenting here with chief complaint of a rash to the genital area. Examination consistent with probable herpetic lesions. She has not had a history of herpes in the past. Cultures were obtained. Patient will be placed on Valtrex. She does have a appointment scheduled on Friday with her MANAGER OF FINANCIAL REPORTING. Patient is against told to continue with that appointment and follow-up. Patient will be placed on Valtrex and pain medication. Cultures are pending. Patient agrees with plan of care. She will follow-up with Dr. Murillo as scheduled Medical Records Medical records reviewed: Yes I reviewed the patient's medical records Lab Data Lab results reviewed: Yes I reviewed the patient's lab results Discharge Plan Discharge Chief Complaint: Skin/Abscess/Foreign Body Clinical Impression: Herpes genitalis in women Patient Disposition: Home, Self-Care Time of Disposition Decision: 14:10 Condition: Good Prescriptions / Home Meds: New acyclovir 400 mg tablet 400 mg PO Q8H Qty: 30 1RF No Action alprazolam 0.25 mg tablet 0.25 mg PO TID omeprazole 40 mg capsule,delayed release(DR/EC) 40 mg PO BID tizanidine [Zanaflex] 4 mg tablet 4 mg PO TID PRN (Reason: muscle spasticity) lisinopril 20 mg tablet 10 mg PO DAILY aspirin 325 mg tablet 325 mg PO DAILY metoprolol tartrate 75 mg tablet 75 mg PO BID dextroamphetamine-amphetamine [Adderall] 30 mg tablet 30 mg PO DAILY Ozempic 0.25 mg or 0.5 mg (2 mg/3 mL) pen injector 0.25 mg subcut QWEEK Rx Instructions: for 4 weeks celecoxib 100 mg capsule lamotrigine [Lamictal] 25 mg tablet 25 mg PO DAILY estradiol [Estrace] 0.5 mg tablet 1 mg PO DAILY Rx Instructions: off 5 days; repeat cycle doxycycline hyclate 100 mg capsule 100 mg PO Q12H ciprofloxacin HCl 500 mg tablet 500 mg PO Q12H mirabegron 25 mg tablet extended release 24 hr 25 mg PO Q24H Print Language: Greenlandic Instructions: Genital Herpes Infection (ED), Sexually Transmitted Diseases (ED) Referrals: Delgado Murillo DO [Physician, MANAGER OF FINANCIAL REPORTING] - 09/26/25 Referral Note: as scheduled Varun Marinelli MD [Primary Care Provider, Family Practice] - 1 week Discharge Date/Time: 09/16/25 14:22
[2025-09-21 06:08] LABS: Neisseria gonorrhoeae, NAA Negative (Negative)
--- NOTE | 2025-09-21 11:18 | PC.NURSE ---
Pt notified of the negative GC and Chlamydia testing. Will keep an eye our for HSV result and call patient when the result is in.
== END 2025-09-16 14:22 | disposition home or self-care (01) ==
PROVIDERS: Emergency Provider Emergency Medicine; PCP Family Medicine
DX: A60.00 Herpesviral infection of urogenital system, unspecified (principal); N39.0 Urinary tract infection, site not specified
CPT/HCPCS: 87255; 87491; 87591; 99283

== ENCOUNTER 2025-09-21 16:24 | Outpatient (OUT) | payer OTHER, SELFPAY ==
--- OUTSIDE RECORDS SUMMARY | 2024-03-29 05:10 | XMS_ITS ---
Author Organization 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 Name Role Phone Varun Marinelli Primary Care Provider Unavailsalome Edwige [place] Unavailable [phone] Aman Cifuentes Unavailable [phone] REASON FOR VISIT RIGHT HAND PAIN Encounters Encounter Location Date Provider Diagnosis [facility] Office [address] [place] [address] [place] [address] 03/29/2024 Aman Cifuentes Right hand pain M79.641 Assessments Encounter Date Diagnosis (ICD Code) Assessment Notes Treatment Notes Treatment Clinical Notes Section Notes 03/29/2024 Right hand pain (ICD-10 - M79.64 1) Plan Of Treatment Pending Test Test Name Order Date SCC- HAND 3 VIEW RIGHT [id number] 03/29/2024 Progress Notes * KEATING, HORACIO NDOB: [birth year] (50 yo F)Acc No.[id number]:03/29/2024 Patient:?ANN KEATINGSOHA Reilly :?Aman Cifuentes MDDOB:1975???Age:48 Y ???Sex:FemaleDate:4Phone:[phone]:D[place]AN [id number]:Varun Marinelli Subjective: * Chief Complaints: * 1 . RIGHT HAND PAIN. * Medical History: Objective: * Vitals: Assessment: * Assessment: 1.?Right hand pain - M79.641??? Plan: * Treatment: ?Imaging: SCC- HAND 3 VIEW RIGHT [id number] Forms: * Images: * Electronic signature of Aman Cifuentes MD on 09/21/2025 at 04:29 PM EDTSign off status: Pending * Provider: Kaelyn Cifuentes MD Date: 0 03/29/2024 Generated for Printing/Faxing/eTransmitting on:?09/21/2025 04:29 PM EDT
--- OUTSIDE RECORDS SUMMARY | 2024-07-02 05:20 | XMS_ITS ---
Author Organization [facility] Address [address] [place] [address] Care Team Providers Care Csr Retail Name Role Phone Varun Marinelli Primary Care Provider Edwige Strauss [phone] REASON FOR VISIT lumbar pain Encounters Encounter Location Date Provider Diagnosis [facility] Office [address] [place] [address] [address] [place] [address] 07/02/2024 Edwige Magaña Lumbar pain M54.50 Assessments Encounter Date Diagnosis (ICD Code) Assessment Notes Treatment Notes Treatment Clinical Notes Section Notes 07/02/2024 Lumbar pain (ICD-10 - M54.50) Plan Of Treatment Pending Test Test Name Order Date Lumbar spine, 4v flex ext - 20246 2023 Progress Notes * KEATING, HORACIO NDOB: [birth year] (50 yo F)Acc No.[id number]:07/02/2024 Patient:?RISHABH HORACIO Reilly :?Edwige Ward MD, PhDDOB:1975 ???Age:49 Y???Sex:FemaleDate:4Phone:[phone]:[id number]:Varun Marinelli Subjective: * Chief Complaints: * 1 . Lumbar pain. * Medical History: Objective: * Vitals: Assessment: * Assessment: 1.?Lumbar pain - M54.50 (Primary)??? Plan: * Treatment: ?Imaging: Lumbar spine, 4v flex ext - 02109 * Procedure Codes: 7 2109 X-ray Lumbar Spine, 5 view complete Forms: * Images: * Electronic signature of Edwige Magaña MD, PHD on 09/21/2025 at 04:28 PM EDT Sign off status: Pending * Provider: Kaelyn Ward MD, PhD Date: 0 07/02/2024 Generated for Printing/Faxing/eTransmitting on:?09/21/2025 04:28 PM EDT
--- OUTSIDE RECORDS SUMMARY | 2024-08-06 04:40 | XMS_ITS ---
Author Organization [facility] Address [address] [place] [address] Care Team Providers Care Roping Tender Name Role Phone Varun Marinelli Primary Care Provider Edwige Strauss Unavailable [phone] REASON FOR VISIT lumbar pain NEEDS TO RESCHEDULE Encounters Encounter Location Date Provider Diagnosis [facility] [address] [place] [address] [place] [address] 08/06/2024 Edwige Magaña Plan Of Treatment No Information Progress Notes * KEISHA KEATINGY NDOB: [birth year] (50 yo F)Acc No.[id number]:08/06/2024 Patient:?HORACIO KEATING Tommie :?Edwige Ward MD, PhDDOB:1975 ???Age:49 Y???Sex:FemaleDate:4Phone:[phone]:Gracie ORDWAY [place], [id number]:Varun Marinelli Subjective: * Chief Complaints: * 1 . lumbar pain NEEDS TO RESCHEDULE. * Medical History: Objective: * Vitals: Assessment: Plan: * Treatment: Forms: * Images: * Electronic signature of Edwige Magaña MD, PHD on 09/21/2025 at 04:30 PM EDT Sign off status: Pending * Provider: Kaelyn Ward MD, PhD Date: 0 08/06/2024 Generated for Printing/Faxing/eTransmitting on:?09/21/2025 04:30 PM EDT
--- OUTSIDE RECORDS SUMMARY | 2024-08-20 05:20 | XMS_ITS ---
Author Organization [facility] Address [address] [place] [address] Care Team Providers Care Rn Access Name Role Phone Varun Marinelli Primary Care Provider Edwige Strauss Unavailable [phone] REASON FOR VISIT lumbar pain NEEDS TO RESCHEDULE Encounters Encounter Location Date Provider Diagnosis [facility] [address] [place] [address] [place] [address] 08/20/2024 Edwige Magaña Plan Of Treatment No Information Progress Notes * KEISHA KEATINGY NDOB: [birth year] (50 yo F)Acc No.[id number]:08/20/2024 Patient:?HORACIO KEATING Tommie :?Edwige Ward MD, PhDDOB:1975 ???Age:49 Y???Sex:FemaleDate:08/20/2024hone:[phone]:Gracie [place], [id number]:Varun Marinelli Subjective: * Chief Complaints: * 1 . lumbar pain NEEDS TO RESCHEDULE. * Medical History: Objective: * Vitals: Assessment: Plan: * Treatment: Forms: * Images: * Electronic signature of Edwige Magaña MD, PHD on 09/21/2025 at 04:31 PM EDT Sign off status: Pending * Provider: Kaelyn Ward MD, PhD Date: 0 08/20/2024 Generated for Printing/Faxing/eTransmitting on:?09/21/2025 04:31 PM EDT
--- OUTSIDE RECORDS SUMMARY | 2025-02-04 05:00 | XMS_ITS ---
Author Organization [facility] Address [address] [place] [address] Care Team Providers Care Central Service Tech Name Role Phone Varun Marinelli Primary Care Provider Edwige Strauss [phone] REASON FOR VISIT THORACIC SPINE Medications Medication SIG (Take, Route, Frequency, Duration) Notes Start Date End Date Status Ozempic ActivedoxepinActiveindomethacinActiveZanaflexActiveAdderallActivelisinopril ActiveLopressorActiveXanaxActiveAspirinActivePrilosecActive Encounters Encounter Location Date Provider Diagnosis [facility] Office [address] [place] [address] [place] [address] 02/04/2025 Edwige Magaña Plan Of Treatment No Information Progress Notes * HORACIO KEATING NDOB: [birth year] (50 yo F)Acc No.[id number]:02/04/2025 Patient:?RISHABH HORACIO Reilly :?Edwige Ward MD, PhDDOB:1975 ???Age:49 Y???Sex:FemaleDate:02/04/2025Phone:[phone]:Gracie PERRY HALLDALLIN BERMAN [id number]:Varun Marinelli Subjective: * Chief Complaints: * 1 [...] MD, PhD Date: 0 02/04/2025 Generated for Printing/Faxing/eTransmitting on:?09/21/2025 04:28 PM EDT
--- OUTSIDE RECORDS SUMMARY | 2025-09-14 12:00 | XMS_ITS ---
Author Organization The [facility] [place] in [place] Address [address] [place] [address] Care Team Providers Care Sdet Name Role Phone Finesse Marinelli Primary Care Provider Allergies Allergen (clinical drug ingredient) Drug/Non Drug Allergy documented on EMR Reaction Allergy Type Onset Date Status nitrofurantoin, macrocrystal s / nitrofurantoin, monohydrate Macrobid neck swelling Drug Allergy ActivealbuterolAlbuterolseizureDrug AllergyActive Results Component Value Reference Range Notes UA DIP NONAUTO WO MICRO (810 02) - IN OFFICE Reviewed date:09/14/2025 04:15:21 PM Interpretation: Performing Lab: Notes/Report: COLOR Yellow CLARITYClearGLUCOSENegBILIRUBINNegKETONE+SPECIFIC GRAVITY1.001BLOOD+PH6.5PROTEIN NegUROBILINOGENNegNITRITENegLEUKOCYTE ESTERASENeg REASON FOR VISIT rash spreading itchy Medications Medication SIG (Take, Route, Frequency, Duration) Notes Start Date End Date Status tiZANidine HCl 2 MG 1 tablet at bedtime as needed Orally Once a day; Duration: 30 days 5ActiveTestosterone 10 MG/ACT (2%)1 pump to skin in the morning to the thighs Transdermal QOD; Duration: 30 days4ActiveTerbinafine HCl 250 MG1 tablet Orally Once a day; Duration: 30 days5ActiveSemaglutide 0.6 mg/0.5 mL Semaglutide 0.6 mg/0.5 mL0.5 mL Subcutaneous Once Weekly; Duration: 30 days08/09/2024ctivePotassium Chloride ER 10 MEQ1 tablet with food Orally Twice a day; Duration: 90 sjfdXPV5104/08/2024ctiveMupirocin 2 %1 application Externally Twice a day; Duration: 5 days03/23/2025tiveLidocaine HCl 3 %as directed Externally 3 times a day09/14/2025tiveOmeprazole 40 MG1 capsule Orally twice a day; Duration: 90 daysActiveNabumetone 750 MGas directed Orally BIDActive Ondansetron 4 MG1 tablet on the tongue and allow to dissolve Orally Once a day; Duration: 30 days09/03/2024ctivemetFORMIN HCl 500 MG1 tablet with a meal Orally BID; Duration: 90 days10/13/2024ctiveLisinopril 10 MG1 tablet Orally Once a day; Duration: 90 daysActiveMetoprolol Tartrate 75 mgTAKE 1 TABLET TWICE A DAY WITH FOODActiveLasix 20 MG1 tablet Orally Once a day; Duration: 90 daysPRN 04/08/2024ctiveGabapentin 300 MG 1 capsule Orally at HS; Duration: 30 days M48.04 02/09/2025tiveGabapentin 100 MG 1 capsule Orally in AM and 1 PO at 3pm; Duration: 30 days M48.04 06/01/2025tiveCipro 500 MG1 tablet Orally BID; Duration: 10 03/01/2025 ActiveBaclofen 5 MG1-2 tablet as needed Orally at HS PRN1ctive Fluconazole 100 MG1 tablet Orally daily; Duration: 10 09/12/2025tive Estradiol 0.5 MG1 tablet Orally Once a day; Duration: 30 days10/07/2024ctive Adderall 30 MG1 tablet Orally q am; Duration: 30 days09/06/2025tiveAdderall 10 MG1 tablet Orally Q ddbfeoali95/07/2025tiveALPRAZolam 0.25 MG 1 tablet Orally once daily; Duration: 7 days As needed F41.9 08/05/2025tiveAdderall XR 30 MG1 capsule in the morning Orally Once a day; Duration: 30 days02/09/2025tive Social History Tobacco Use: Social History Observation Description Date Details (start date - stop date) Former Smoker NA - 12/31/2009 Tobacco Use/Smoking Question Answer Notes Patient is a former smoker When did you stop smoking?12/31/2009How long has it been since you last smoked?> 10 yearsAUDIT-C (Standard) Question Answer Notes Did you have a drink containing alcohol in the p ast year? No Cfowva0RsdakddqwpmkepAkfxrobb Problems Problem Type SNOMED Code ICD Code Onset Dates Problem Status W/U Status Risk Notes Problem Dysuria (86076087) Dysuria (R30.0) Activeconfirmed Vital Signs Weight 181.8 lbs 09/14/2025 Height 67 in 09/14/2025 Blood pressure systolic 122 mm Hg 09/14/20 25 Blood pressure diastolic 82 mm Hg 025 BMI 28.47 kg/m2 09/14/2025 Encounters Encounter Location Date Provider Diagnosis [facility] [address] [place] [address] 09/14/2025 Finesse Marinelli Dysuria R30.0 Assessments Encounter Date Diagnosis (ICD Code) Assessment Notes Treatment Notes Treatment Clinical Notes Section Notes 09/14/2025 Dysuria (ICD-10 - R30.0) Plan Of Treatment Medication Medication Name Sig Start Date Stop Date Notes Lidocaine HCl 3 % as directed Externally 3 times a day 09/14/2025 Pending Test Test Name Order Date Urinalysis Microscopic 09/14/2025 RHEUMATOID PANEL 09/14/2025 CELIAC ANTIBODIES PROFILE 09/14/2025 CULTURE URINE 09/14/2025 SED RATE WESTERGREN 09/14/2025 THYROID PROFILE WITH TSH 09/14/2025 Progress Notes * KEATING, Paige NDOB: [birth year] (50 yo F)Acc No.[id number]:09/14/2025 Progress Note Patient: Paige GOLD N :?Varun Marinelli ([facility]), MDDOB:1975???Age: 50 Y???Sex:FemaleDate:09/14/2025Phone:[phone]:[address] [facility], [place]Iyulb In:03:30 PM ESTCheck Out:04:25 PM EST Subjective: * Chief Complaints: * R jean-pierre spreading itchy * HPI: ???General:?Rasis spreading - may be more yeast infetrions Hx of bacterial vaginosis - but doesnt feel like that. * Active Problem List M13.841 Other specified arth ritis, right hand Modified On:11/12/2023 Status:apatelcxwS48.83Fatigue Modified On:06/12/2023 Status:hdxipxdkhB46Szxdsbyydkym Modified On:02/02/2024 Status:vrxkjyalmJ22.9GERD (gastroesophageal reflux disease) Modified On:06/12/2023 Status:ghowdzumcP74.9Anxiety Modified On:06/12/2023 Status:xlhugfnelY97.2Plantar fasciitis Modified On:06/12/2023 Status:cdlgoqtndL27.30Diverticula of colon Modified On:06/12/2023 Status:pjxaamvalM36.9Vision changes Modified On:06/12/2023 Status:prcejijjuX25.50Arthralgia Modified On:06/12/2023 Status:ekhrohvwjH21.8DUB (dysfunctional uterine bleeding) Modified On:06/12/2023 Status:fgskoxwxtA63.83Snorings Modified On:06/12/2023 Status:aiyjhzywaU66.9Irritable bowel syndrome (IBS) Modified On:06/12/2023 Status:ydsbeddwuA61.03Pre-diabetes Modified On:06/12/2023 Status:oqvzjqxbxO47.201Ovarian cyst, right Modified On:06/12/2023 Status:llrukllccP42.33Obstructive sleep apnea (adult) (pediatric) Modified On:03/14/2023 Status:cbevpyovaY09.01Primary insomnia Modified On:03/14/2023 Status:odesgnfhjK08.9Hand arthritis Modified On:06/13/2023 Status:aqkhmbjzcL06.041Arthritis of right hand Modified On:06/13/2023 Status:qdxrucvamG55.419Narcolepsy Modified On:02/02/2024 Status:hujyekhvyH15.2Neck pain Modified On:03/04/2024W/U Status:foigyzccqF07.559Hip pain, acute Modified On:02/02/2024U Status:uexmlsipmJ52.36Other intervertebral disc degeneration, lumbar region Modified On:05/19/2024U Status:ggwedatpfP16.1COVID-19 Modified On:06/28/2024U Status:kejscvpasJ77.00Hypercholesteremia Modified On:09/02/2024U Status:sfpiipsfyH73.9Low testosterone Modified On:10/18/2024U Status:qionrayemI88.04Thoracic spinal stenosis Modified On:01/14/2025U Status:lscwtsmyyV25.641Right hand pain Modified On:03/04/2025 Status:rhatnpwaiL47.00Kidney cysts Modified On:03/16/2025 Status:nxvaejnauN50.00Well adult Modified On:08/11/2025U Status:dwvhsrriqI20.1Hypotestosteronemia Modified On:08/16/2025U Status:zeztsiiybQ88.9Vaginal bleeding Modified On:08/23/2025U Status:yiwxjsbzzE37.0Dysuria Modified On:09/14/2025 Status:confirmed * Medical History: * Surgical History: T ubal Ligation Endometrial Polyp removal Cholecystectomy hysterectomy colonoscopy ilateral L3-4 transforaminal epidural steroid inj 10/04/24EGD- Dr Li Promedicjere 10/02/24Right Sacroiliac joint injection- Dr Jara 11/15/24Right index finger steroid injection 01/2025 * Hospitalization/Major Diagno stic Procedure: D enies Past Hospitalization * Family History: F ather: 68 yrs, type II diabetes, diagnosed with Diabetes. M other: 68 yrs, hyperthyroidism, Lung cancer, diagnosed with Cancer. S ister(s): alive. [place] strange(s): alive. 1 sister(s) . 2 daughter(s) - healthy. . * Social History: ???Tobacco Use:?Tobacco Use/Smoking?Patient is a?former smoker ?When did you stop smoking??12/31/2009 ?How long has it been since you last smoked? > 10 years ???Drug/Alcohol:?AUDIT-C (Standard)?Did you have a drink containing alcohol in the past year??No ?Points?0 ?Interpretation?Negative * Medications: T akingAdderall(Amphetamine-Dextroamphetamine) 10 MG Tablet [...] Tablet 1 tablet Orally Once a day Fluconazole 100 MG Tablet 1 tablet Orally daily Gabapentin 100 MG Capsule 1 capsule Orally in AM and 1 PO at 3pm M48.04Gabapentin 300 MG Capsule 1 capsule Orally at HS M48.04Lasix(Furosemide) 20 MG Tablet 1 tablet Orally Once [...] 750 MG Tablet as directed Orally BID Omeprazole 40 MG Capsule Delayed Release 1 [...] 1 tablet Orally Once a day Taking Fluconazole 100 MG Tablet 1 tablet Orally daily Taking Gabapentin 100 MG Capsule 1 capsule Orally in AM and 1 PO at 3pm M48.04Taking Gabapentin 300 MG Capsule 1 capsule Orally at HS M48.04Taking Lasix(Furosemide) 20 MG Tablet 1 tablet Orally [...] MG Tablet as directed Orally BID Taking Omeprazole 40 MG Capsule Delayed Release 1 capsule Orally twice a day Taking Ondansetron 4 MG Tablet Disintegrating 1 tablet on the tongue and allow to dissolve Orally Once a day Taking Potassium Chloride ER 10 MEQ Tablet Extended Release 1 tablet with food Orally Twice a day , Notes to Pharmacist: PRNTaking Semaglutide 0.6 mg/0.5 mL Semaglutide 0.6 mg/0.5 mL Solution Auto- injector 0.5 mL Subcutaneous Once Weekly Taking Terbinafine [...] - Allergyno[Allergies Verified] Objective: * Vitals: W t:181.8lbs, Ht: 67 in, BP:122/82mm Hg, BMI:28.47Index, Ht-cm: 170.18 cm, Wt-k.46 kg. * Examination: ???Abdomen Exam:: ???some erythenm aaround vaginal area. Assessment: * Assessment: 1.?Dysuria - R30.0 (Primary)??? Plan: * Treatment: Start Lidocaine HCl Cream, 3 %, as directed, Externally, 3 times a day, 60 gm, Refills 11.?LAB: Urinalysis Microscopic ?LAB: RHEUMATOID PANEL ?LAB: CELIAC ANTIBODIES PROFILE ?LAB: CULTURE URINE ?LAB: SED RATE WESTERGREN ?LAB: THYROID PROFILE WITH TSH ?LAB: UA DIP NONAUTO WO MICRO (33253) - IN OFFICE (Collection Date & Time - 09/14/2025) * Labs: * L ab: UA DIP NONAUTO WO MICRO (61894) - IN OFFICE (Collection Date & Time - 09/14/2025) ?ValueReference Range?COLORYellow * C LARITY Clear * G LUCOSE Neg * B ILIRUBIN Neg * K ETONE + * S PECIFIC GRAVITY 1.001 * B LOOD + * P H 6.5 * P ROTEIN Neg * U ROBILINOGEN Neg * N ITRITE Neg * L EUKOCYTE ESTERASE Neg * Procedure Codes: 8 1002 URINALYSIS WO [id number] DIAST BP 80-89 MM [id number] SYST BP LT 130 MM HG * * Sign off status: CompletedVisit Status:?CHK (Check Out) true * Provider: Paris Marinelli ([facility])MD Date: 1 Generated for Printing/Faxing/eTransmitting on:?09/21/2025 04:29 PM EDT History and Physical Notes * HPI (History of Present Illness) CategorySub-CategoryDetailNotesCategory NotesGeneral Rasis spreading - may be more yeast infetrions Hx of bacterial vaginosis - but doesnt feel like that Examination CategorySub-CategoryDetailNotesCategory NotesAbdomen Exam:some erythenm aaround vaginal area
--- OUTSIDE RECORDS SUMMARY | 2025-09-15 20:45 | XMS_ITS | Continuity of Care Document ---
Author Organization [facility] Address [address] [place] [address] Phone Care Team Providers Care Card Feeder Name Role Phone Varun Marinelli MD Attending Provider Care Teams Visit Care Team Team Status: Inactive Member Role Status Dates Varun Marinelli MD Attending Provider Active Sta rt: August 13, 2025 End: August 13, 2025 Patient Care Team Team Status: Inactive Member Role Status Dates Varun Mairnelli MD Attending Provider Active Sta rt: September 14, 2025 End: September 14, 2025 Chief Complaint and Reason for Visit Chief Complaint Admit Date Unknown August 13, 2025 11:48am Unknown September 14, 2025 4 :54pm Allergies, Adverse Reactions, Alerts Allergen Type Severity Reaction Last Updated Verified Status nitrofurantoin Allergy Unknown glands in her neck swell October 01, 2022 2:58pm Yes Active Social History Smoking Status Unknown if ever smoked Observation Status Observation Response Date of Response Legal Sex Female (finding) Sex Assigned At BirthFe1974 Family History Relationship Condition Age at Onset Recorded Date/T lewis aunt Obesity Unknown auntObesityUnknownfatherDiabetes mellitusUnknownDeceasedUnknownObesityUnknown grandparentObesityUnknowngrandparentObesityUnknownmotherDiabetes mellitusUnknown Family history of lung cancerUnknownMalignant neoplasmUnknownDeceasedUnknown Procedures Procedure Date Performed Status Urine Culture September 14, 2025 active Urine Culture August 13, 2025 completed Relevant Diagnostic Tests and/or Laboratory Data Microbiology Results Procedure Source Result Collection Date/Time Result Date/Time Result Comment Performing Site Urine Culture Urine, Clean-Voided Midstream 2 Days August 13, 2025 11:48am August 15, 2025 8:35am [facility] [id number] [address] [place] [address] Advance Directives Advance Directive Response Recorded Date/ Time Advance Directives No February 02 10:30am Insurance Providers Guarantor Paige Lopez Address [address] [place] [id number] Info.Home Phone: Payer Policy Id Subscriber's Name Subscriber Id Effectiv e Date Expiration Date [facility] [id number] Paige Marroquin [id number] Encounters Encounter Location(s) Arrival/Admit Date Discharge/Depart Date Provider(s) Departed Referred -[facility] August 13, 2025 11:48am August 13, 2025 11:49am Jered Florentino MD Departed Referred -[facility] September 14, 2025 4:54pm September 14, 2025 4:55pm Jered Florentino MD Plan of Treatment Future Tests Future scheduled test information is unavailable Pending Tests Test Name Ordered Date Scheduled Date Urine Culture September 14, 2025 4:54pm Future Visits Future appointment information is unavailable Referrals to Other Providers Referral information is unavailable Future Procedures Procedure Name Ordered Date Scheduled Date Urine Culture September 15, 2025 8:25am Octobe r 2024 4:54pm Future Medications Future medication information is unavailable Patient Instructions Patient instructions are unavailable
--- OUTSIDE RECORDS SUMMARY | 2025-09-21 16:28 | XMS_ITS | Encounter Summary ---
Author Organization [facility] Address [address] [facility] [place] [address] Care Team Providers Care Dye Worker Name Role Phone Varun Marinelli MD Primary Care Provider [phone] Tiesha Hughes NP Unavailable [phone] Shasha White DO Unavailable [phone] Encounter Details DateTypeDepartmentCare Team (Latest Contact Info)Geqxyzkefhh95/20/2025Travel Social History Tobacco UseTypesPacks/DayYears UsedDateSmoking Tobacco: Every DayCigarettes Alcohol UseStandard Drinks/WeekCommentsYes0 (1 standard drink = 0.6 oz pure alcohol)Alcohol: 1 or 2 drinks, 2 to 4 times a month; Caffeine: 1-2 cups/day AUDIT-CAnswerDate RecordedQ1: How often do you have a drink containing alcohol? 2-4 times a month10/20/2023Q2: How many drinks containing alcohol do you have on a typical day when you are drinking?1 or Q3: How often do you have six or more drinks on one occasion?Never10/20/2023CommentsNoSex and Gender InformationValueDate RecordedSex Assigned at BirthNot on fileLegal Sex Dlhawb8602/12/2023 6:36 PM EDTGender IdentityNot on fileSexual OrientationNot on filedocumented as of this encounter Plan of Treatment DateTypeDepartmentCare Team (Latest Contact Info)Nmzykvkgfqf44/27/2025 3:10 PM EDTOffice Visit [facility] [address] [place] [address] [place] [address] Delgado Murillo DO [address] [place] [address] [place] [address] documented as of this encounter Visit Diagnoses Not on filedocumented in this encounter Care Teams Team MemberRelationshipSpecialtyStart DateEnd Date Varun Marinelli MD PCP - GeneralFamily Medicine06/26/23 Tiesha Hughes NP Nurse PractitionerNeurology02/03/25 Shasha White DO [address] [place] [address] Referring PhysicianNeurology02/03/25documented as of this encounter
--- OUTSIDE RECORDS SUMMARY | 2025-09-21 16:29 | XMS_ITS | Clinical Summary ---
Author Organization Twists tem Address [facility] [address] [place] [address] Care Team Providers Care Shore Man Name Role Phone Varun Marinelli MD Primary Care Provider [phone] Allergies Active AllergyReactionsCriticalityNoted DateCommentsAlbuterolOther (See Comments)High07/16/2017 convulsions NEED TO CUT DOWN ADRENALIN TO PREVENT SEIZURES Other Reaction(s): seizure Bee Venom Protein (Honey Bee)04/05/2024 Other Reaction(s): Nausea, Swelling Nitrofurantoin Monohyd/M-WgcfgGhjcvjii40/01/2018 Glands in neck Other05/13/2005Tree Nut10/20/2024 Pecans Medications MedicationSigDispense QuantityRefillsLast FilledStart DateEnd DateStatus omeprazole (PriLOSEC) 40 mg capsule Take 1 capsule (40 mg total) by mouth in the morning and 1 capsule (40 mg total) before bedtime.Active amphetamine-dextroamphetamine XR (ADDERALL XR) 30 mg 24 hr capsule Take 1 capsule (30 mg total) by mouth every morning.Active lamoTRIgine (LaMICtal) 25 mg tablet Take 1 tablet (25 mg total) by mouth in the morning.Active aspirin 325 mg EC tablet Take 1 tablet (325 mg total) by mouth in the morning.Active celecoxib (CeleBREX) 100 mg capsule Take 1 capsule (100 mg total) by mouth in the morning and 1 capsule (100 mg total) before bedtime.Active lisinopriL (PRINIVIL,ZESTRIL) 20 mg tablet Take 1 tablet (20 mg total) by mouth in the morning.Active ALPRAZolam (XANAX) 0.25 mg tablet Take 1 tablet (0.25 mg total) by mouth nightly as needed for anxiety.Active tiZANidine (ZANAFLEX) 4 mg tablet Take 1 tablet (4 mg total) by mouth every 6 (six) hours as needed for muscle spasms.Active semaglutide (OZEMPIC) 0.25 mg or 0.5 mg(2 mg/1.5 mL) pen injector Inject 0.6 mg under the skin every 7 days. mondaysActive polycarbophil (FIBERCON) 625 mg tablet Take 1 tablet (625 mg total) by mouth in the morning.Active docusate sodium (COLACE) 50 mg capsule Take 1 capsule (50 mg total) by mouth in the morning and 1 capsule (50 mg total) before bedtime.Active metoprolol tartrate (LOPRESSOR) 100 mg tablet Take 75 mg by mouth in the morning and 75 mg before bedtime.Active estradioL (ESTRACE) 0.5 mg tablet Take 1 tablet (0.5 mg total) by mouth in the morning.Active acidophilus-pectin, citrus 25 million cell -100 mg tablet Take 1 tablet by mouth in the morning and 1 tablet at noon and 1 tablet in the evening. Take with meals.Active metFORMIN (GLUCOPHAGE) 500 mg tablet Take 1 tablet (500 mg total) by mouth in the morning and 1 tablet (500 mg total) in the evening. Take with meals.4Active Active Problems No known active problems Family History Medical HistoryRelationNameCommentsDiabetesFatherKidney diseaseFather HypothyroidismMotherRelationNameStatusCommentsDaughter 1AliveDaughter 2Alive FatherDeceasedMotherDeceasedSisterAlive Social History Tobacco UseTypesPacks/DayYears UsedDateSmoking Tobacco: Some Days Vaping/E-cigarettesSmokeless Tobacco: Never Tobacco Cessation:Ready to Q uit: Not Asked; Counseling Given: Not Answered Alcohol UseStandard Drinks/WeekCommentsYes0 (1 standard drink = 0.6 oz pure alcohol)rareChildcareAnswerDate TfrwlmfcOuwxdoacjViferbp02/12/2019Employment AnswerDate ZjnrtifcUfknerqckoBsntjyc15/12/2019Purpose - LifeAnswerDate Recorded Purpose and direction in xhqmJqyhhxi06/11/2021CommentsNoSex and Gender InformationValueDate RecordedSex Assigned at ZnhvzQuiqck29/06/2023 11:09 AM EST Legal QfzFgqlsh60/06/2015 11:35 AM EDTGender KgnivhcyJdcwbx00/06/2023 11:09 AM ESTSexual YjasjnpaowyMgmdbav27/06/2023 11:09 AM EST Last Filed Vital Signs Vital SignReadingTime TakenCommentsBlood Axkuuihl234/7910/27/2024 10:55 AM EST Yzpcs667610/27/2024 10:55 AM VJPQtcacbwqwlg11.6 ??C (97.9 ??F)10/27/2024 9:11 AM ESTRespiratory Bodu292912/27/2023 10:55 AM ESTOxygen Ufzdqoaedq72%10/27/2024 10:55 AM ESTInhaled Oxygen Concentration--Ehvboi71.8 kg (176 lb)10/27/2024 9:11 AM EST Bqxhtc017.6 cm (5' 6 )10/27/2024 9:11 AM ESTBody Mass Index28.41112/27/2023 9:11 AM EST Plan of Treatment Health MaintenanceDue DateLast DoneCommentsTobacco Rrypqdrpvc1976 Depression Rskfezkke54/24/1988Adult BMI Follow Up Plan1994DTaP,Tdap and Td Vaccines (1 - Tdap)1995COVID-19 Vaccine ( season)2025 11/17/2021, 02/02/2021, 01/12/2021Influenza Dcmufow66/01/2004Adult BMI Tqxcfpjob71Tobacco Lykjyacvh99/olonoscopy , 10/27/2024, 05/28/2021, Additional history existsPap Smear Ospccnpgbmfz19/23/2023 Medical Devices Not on file Procedures Procedure NamePriorityDate/TimeAssociated DiagnosisCommentsPROVATION COLONOSCOPY Icaieno9910/27/2024 9:03 AM EST from Last 3 Months or Most Recently Relevant to Health Maintenance Results * Colonoscopy Report (10/27/2024 9:03 AM EST)Specimen (Source)Anatomical Location / LateralityCollection Method / VolumeCollection TimeReceived Time Narrative SYSTEMGENERATED, DOCUMENTATION - 10/27/2024 9:03 AM EST This order has been auto-finalized for image and report archival in PACs. *For full report details, please reach out to your physician. ??This image is visible to you in MyChart.* Authorizing ProviderResult TypeResult StatusMennatjulito Li MDIMG OR IMG ORDERABLESFinal Result from Last 3 Months or Most Recently Relevant to Health Maintenance Insurance Care Teams Team MemberRelationshipSpecialtyStart DateEnd Date Varun Marinelli MD PCP - [facility]05/04/18
--- OUTSIDE RECORDS SUMMARY | 2025-09-21 16:29 | XMS_ITS | Clinical Summary ---
Author Organization [facility] Address [address] [place] [address] Care Team Providers Care Market Superintendent Name Role Phone Varun Marinelli MD Primary Care Provider [phone] Tiesha Hughes BACKFILLER Unavailable [phone] Shasha White DO Unavailable [phone] Allergies Active AllergyReactionsCriticalityNoted LfowJnbcsrmzHkfpdxzskWvomk25/27/2023 convulsions NEED TO CUT DOWN ADRENALIN TO PREVENT SEIZURES Other Reaction(s): seizure Bee Venom04/05/2024 Other Reaction(s): Nausea, Swelling Egg Protein-Containing Drug Mcruwkxp01/06/2024 Other Reaction(s): Hives, Unknown KhgwmyyyiizfzkOceasicg83/01/2018 Other Reaction(s): Neck swelling, Unknown Nitrofurantoin Ksplltykepvu41/06/2024 Other Reaction(s): Unknown Other05/13/2005 Pecans Medications MedicationSigDispense QuantityRefillsLast FilledStart DateEnd DateStatus ALPRAZolam (Xanax) 0.25 MG tablet Take 0.25 mg by mouth 3 (three) times a day as needed.02/03/2023ctive doxepin (SINEquan) 10 MG capsule Take 10 mg by mouth at bedtime.06/09/2023ctive metoprolol tartrate (Lopressor) 75 MG tablet Take 50 mg by mouth in the morning and 50 mg before bedtime.05/17/2023ctive meloxicam (Mobic) 15 MG tablet Take 15 mg by mouth in the morning.06/14/2023ctive omeprazole (PriLOSEC) [address] capsule Take 40 mg by mouth in the morning and 40 mg in the evening.Active phentermine (Adipex-P) 37.5 MG tablet Take 37.5 mg by mouth in the morning. Take before meals.06/13/2023ctive tiZANidine (Zanaflex) 4 MG tablet Take 8 mg by mouth at bedtime.06/13/2023ctive testosterone (Fortesta) 10 MG/ACT (2%) gel gel 1 pump to skin in the morning to the thighs Transdermal QOD for 30 days 10/19/2024ctive metFORMIN (Glucophage) 500 MG tablet Take 500 mg by mouth in the morning and 500 mg in the evening. Take with meals. Active amphetamine-dextroamphetamine XR (Adderall XR) 30 MG 24 hr capsule Take 30 mg by mouth in the morning. Do not crush or chew..Active amphetamine-dextroamphetamine (Adderall) 10 MG tablet Take 10 mg by mouth Daily as neededActive lisinopril 20 MG tablet Take by mouth DailyActive celecoxib (CeleBREX) 100 MG capsule Take 100 mg by mouth in the morning and 100 mg before bedtime.Active gabapentin (Neurontin) 100 MG capsule Take by mouth 2 (two) times a dayActive semaglutide (Ozempic, 0.25 or 0.5 MG/DOSE,) 2 MG/1.5ML solution pen-injector Inject under the skinActive estradiol (Estrace) 1 MG tablet Indications:H/O: hysterectomyTAKE 1 TABLET DAILY (PATIENT NEEDS TO SCHEDULE OFFICE VISIT PRIOR TO ADDITIONAL REFILLS) 90 tablet 5Active Encounters DateTypeDepartmentCare XvtjRxuonnnqopc48/20/1969Yuifam65/17/2025Telephone [facility] [address] [place] [phone] Aura Murillo, 07/14/2025Refill [facility] [address] [place] [address] Aura Murillo, DO H/O: hysterectomyfrom Last 3 Months Family History Medical HistoryRelationNameCommentsDiabetesFatherHypertensionFatherStrokeFather Lung cancerMaternal GrandfatherBreast cancerMaternal GrandmotherOsteoporosis MotherThyroid diseaseMotherLeukemiaOtherGreat Auntsother unknown cancerOther Great AuntsDiabetesPaternal GrandmotherOvarian cancerPaternal Grandmother RelationNameStatusCommentsFatherDeceasedMaternal GrandfatherMaternal Grandmother MotherDeceasedOtherGreat AuntsPaternal Grandmother Social History Tobacco UseTypesPacks/DayYears UsedDateSmoking Tobacco: Every DayCigarettes Tobacco Cessation:Ready to Q uit: Not Asked; [...] RecordedSex Assigned at BirthNot on fileLegal Sex Plrxdy4302/12/2023 6:36 PM EDTGender IdentityNot on fileSexual OrientationNot on file Last Filed Vital Signs Vital SignReadingTime TakenCommentsBlood Oseehrbn777/76002/03/2025 8:24 AM EST Gmdkh9068 8:24 AM ESTTemperature--Respiratory Rate--Oxygen Tkivnhyruq20% 02/03/2025 8:24 AM ESTInhaled Oxygen Concentration--Cfplff82.5 kg (184 lb) 02/03/2025 8:24 AM WGSKwzkxp255.6 cm (5' 6 )02/03/2025 8:24 AM ESTBody Mass Index29.703 8:24 AM EST Plan of Treatment DateTypeDepartmentCare Team (Latest Contact Info)Kverzzovjwp47/27/2025 3:10 PM EDTOffice Visit [facility] [address] [facility] [address] Aura Murillo DO [address] [place] [address] Health MaintenanceDue DateLast DoneCommentsCT Irqaoyppkbfc1976FIT-DNA 1976FIT1976FOBT1976 4749Kcnbsybnbuhbs1976Influenza Vaccine (#1)08/01/20259315Tkxwhyzkz54/28/18668701/28/2025, 3Pap Smear11/22/2027 11/22/2024, 3Cervical Cancer Zqjivzwsw66/23/2028HPV/Ixcdyg4810/23/2028 Pkoulqyhmnu67/27/56886912/27/2023, 10/27/2024, 10/27/2024, Additional history existsColorectal Cancer Opkrtntzw33/27/2034 Procedures Procedure NamePriorityDate/TimeAssociated DiagnosisCommentsMM TOMOSYNTHESIS SCREENING BI01/28/2025 1:49 PM EST PAP PBRKDClqsvuf06/23/2024 12:00 AM ESTfrom Last 3 Months or Most Recently Relevant to Health Maintenance Results * MM TOMOSYNTHESIS SCREENING BI (01/28/2025 1:49 PM EST)Anatomical Region LateralityModalityOtherSpecimen (Source)Anatomical Location / Laterality Collection Method / VolumeCollection TimeReceived Time01/28/2025 1:49 PM EST Narrative 01/28/2025 1:50 PM EST [facility] ?[address] ? [place] [address] ? Mammography Report ? Signed ? Patient: KEATING,PAIGE N ?MR#: [id number] ?? : 1975 ?Acct:[id number] ?? Age/Sex: 49 / F ?ADM Date: 01/28/25 ?? Loc: MAMMO ? Attending Dr: Aura Murillo D.O. ? Ordering Physician: Aura Murillo D.O. ?Results: ? Date of Service: 01/28/ ?Follow Up: ? Procedure(s): MM tomosynthesis screening BI ?? Accession Number(s): [id number] ? cc: Aura Murillo D.O.; Varun Marinelli M.D. ? Patient Name: ? PAIGE KEATING ? MR#: [id number] ? : 1975 ? Exam Date: 01/28/2025 ?? Ordering Doctor: DR AURA MURILLO . ? RADIOLOGY REPORT ? PROCEDURE: ? MM TOMOSYNTHESIS SCREENING BI ? COMPARISON: ? MM TOMOSYNTHESIS SCREENING BI, 11/26/2023. ??MG MAMM SCREEN 3D ?? DEAN CAD, 09/12/2022. ??MG MAMM SCREEN 3D DEAN CAD, 07/26/2021. ??MG MAMM DEAN DIAG ?? W CAD DIG, 05/26/2007. ? INDICATIONS: ? Screening ? Calculator Name ? NCI Breast Cancer Risk Assessment Tool ?? 5 Year Breast Cancer Risk ? 1.50% ?? Lifetime Breast Cancer Risk ? 13.20% ?? Personal Breast Cancer ?No ?? Personal Ovarian Cancer ? No ?? Treatments ? None ?? Family Cancers ? Mother with lung cancer at age 68; Grandmother-maternal ?? with breast cancer at age 64; Grandmother-paternal with ovarian cancer at age ?? 76. ? LOCATION: ? [facility] ? BREAST COMPOSITION: ? There are scattered areas of fibroglandular density. ? FINDINGS: ? RIGHT BREAST: ??No significant suspicious finding. ? LEFT BREAST: ??No significant suspicious finding. ??There is a similar focal ?? asymmetry of the left breast. ??Benign-appearing lymph nodes in the along the ?? left chest wall paired ? DIAGNOSTIC CATEGORY 2--BENIGN FINDING. NO CHANGE FROM COMPARISON. ? RECOMMENDATIONS: ? ROUTINE MAMMOGRAM AND CLINICAL EVALUATION IN 12 MONTHS. ? PLEASE NOTE: ??A NORMAL MAMMOGRAM DOES NOT EXCLUDE THE POSSIBILITY OF BREAST ?? CANCER. ??A CLINICALLY SUSPICIOUS PALPABLE LUMP SHOULD BE BIOPSIED. ? Dictated by: J Carlos Cat MD on 01/28/2025 at 13:44 ? Approved by: J Carlos Cat MD on 01/28/2025 at 13:46 ? Dictated By: ?J Carlos Cat M.D. ? Signed By: ?01/28/250 ? DD/ 1349 ? TD/TT: ? Stator Winder: Procedure Note Radiology, Radiologist, MD - 01/28/2025 [place] [address] Mammography Report Signed Patient: PAIGE KEATING NMR#: [id number] : 1975Acct:[id number] Age/Sex: 49 / FADM Date: 01/28/25 Loc: MAMMO Attending Dr: Aura Murillo D.O. Ordering Physician: Aura Murillo D.O.Results: Date of Service: 01/28/25Follow Up: Procedure(s): MM tomosynthesis screening BI Accession Number(s): [id number] cc: Aura Murillo D.O.; Varun Marinelli M.D. Patient Name: PAIGE KEATING MR#: [id number] : 1975 Exam Date: 01/28/2025 Ordering Doctor: DR AURA MURILLO . RADIOLOGY REPORT PROCEDURE: MM TOMOSYNTHESIS SCREENING BI COMPARISON: MM TOMOSYNTHESIS SCREENING BI, 11/26/2023. MG MAMM HNPBSZ8G DEAN CAD, 09/12/2022. MG MAMM SCREEN 3D [...] with ovarian cancer atage 77. LOCATION: [facility] BREAST COMPOSITION: There are scattered areas of [...] M.D. Signed By:01/28/25 1350 DD/ 1349 TD/TT: Stator Winder: Authorizing ProviderResult TypeResult StatusCorey Lidia DOCLINISYNC IMAGINGFinal Result * Pap Smear (11/22/2024 12:00 AM EST)Specimen (Source)Anatomical Location / LateralityCollection Method / VolumeCollection TimeReceived TimeSwabCervical swab / Unknown Narrative Authorizing ProviderResult TypeResult StatusCorey Lidia DOLAB CYTOLOGY ORDERABLESFinal ResultPerforming OrganizationAddressCity/State/ZIP CodePhone Number EXTERNAL LAB from Last 3 Months or Most Recently Relevant to Health Maintenance Insurance Care Teams Team MemberRelationshipSpecialtyStart DateEnd Varun Marinelli MD [facility] - [facility] Tiesha Hughes NP Nurse PractitionerNeurology02/03/25 Shasha White DO [address] [place] [address] Referring PhysicianNeurology02/03/25
--- OUTSIDE RECORDS SUMMARY | 2025-09-21 16:29 | XMS_ITS | Patient Health Record ---
Author Organization [facility] Address [address] [place] [address] Care Team Providers Care Strategic Planning Consultant Name Role Phone Varun Marinelli Primary Care Provider Unavailsalome Edwige Angeles Unavailable [phone] Aman Cifuentes Unavailable [phone] xxAngleShikha bateman Unavailable Allergies Allergen (clinical drug ingredient) Drug/Non Drug Allergy documented on EMR Reaction Allergy Type Onset Date Status bees (uncoded)swollenAllergyActivepecans (uncoded)coughing, seizureAllergyActive nitrofurantoin, macrocrystals / nitrofurantoin, monohydrateMacrobidswollen glandsDrug AllergyActive Reason For Referral No Information Medications Medication SIG (Take, Route, Frequency, Duration) Notes Start Date End Date Status Ozempic ActivedoxepinActiveindomethacinActiveZanaflexActiveXanaxActiveAdderallActive AspirinActivePrilosecActivelisinoprilActiveLopressorActive Social History Tobacco Use: Social History Observation Description Date Details (start date - stop date) Former Smoker NA - NA AUDIT-C (Standard) Question Answer Notes Did you have a drink containing alcohol in the p ast year? No Lfcckn7IbclypkkbhvmsmPnnjgdrdKzveghs Control (Standard) Question Answer Notes Tobacco use: Former smoker How long has it been since you last smoked?5-10 years Problems Problem Type SNOMED Code ICD Code Onset Dates Problem Status W/U Status Risk Notes Problem 52385455 Muscle spasm (M62.838) YnhbikdfzugozxoLrweacw204369031457521Kcgprdq osteoarthritis, right hand (M19.041)ObzcpzyspglrjgwDadjdpt54312487XFH (degenerative disc disease), cervical (M50.30)ActiveconfirmedProblemDegeneration of cervical intervertebral disc (38052606)Degeneration of intervertebral disc at C6-C7 level (M50.323)Active gcxgcuvooIelhyer75782883Mwgogq stenosis with neurogenic claudication (M48.062) ActiveconfirmedProblemDegeneration of cervical intervertebral disc (59883785) 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)ActiveconfirmedProblem 362592499Yxutj arthropathy, 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)ActiveconfirmedProblemLumbar arthritis (disorder) (103915146)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)Active khpgnmjywKilfffa597410930Xaqjglbz dyskinesis (G25.89)ActiveconfirmedProblem Cervical facet joint pain (finding) (290851825)Cervical facet syndrome (M47.812) HewlfrcqovozcllTvdludn653620434Rfkeb arthropathy (M47.819)ActiveconfirmedProblem 550278209310153BYH (herniated nucleus pulposus), thoracic (M51.24)Active confirmedProblemGeneralized osteoarthritis of the hand (376812677)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 T8-9 HNP 2. Scapular dyskinesia 3. Muscle spasms 02/18/2025HNP (herniated nucleus pulposus), thoracic (ICD-10 - M51.24) 1. T8-9 HNP 2. Scapular dyskinesia 3. Muscle spasms 02/18/2025Scapular dyskinesis (ICD-10 - G25.89) 1. T8-9 HNP 2. Scapular dyskinesia 3. Muscle spasms 01/17/2025OtherFor right index finger arthritis she is interested in a repeat corticosteroid injection.02/18/2025Other Today I reviewed patient's MRI results with [...] Test Name Order Date Cervical spine,ap,lat,flex,ext - 91909 0 08/12/2024 MRI : Lumbosacral Spine W/O Contrast - 7 8 05/03/2024 PT - Evaluate and Treat, as directed, [...] RIGHT 05/03/2024 SCC- HAND 3 VIEW RIGHT 11898 05/03/2024 SCC- LUMBAR 4 VIEW 45972 05/03/2024 Insurance Providers Payer Name Payer Address Payer Phone Subscriber Number Group Number Insured Name Patient Relationship to Insured Coverage Start Date Coverage End Date Medical [facility] [address] [place] [address] [id number] CHERI KEATINGelf - patient is the insured Medications Administered Medication Instructions Date of Administration Dosage Notes Depo-Medrol 01/17/2025.5 rCvobvdxorj25/17/2025.5 mL Medical (General) History Medical History History ICD Code High Blood Pressure Abnormal Heart RhythmBronchitisStomach ulcersGastric RefluxIrritable bowel syndromeStrokeSeizuresOsteoarthritisAnemiaOvarian CystsAnxietySurgical History Surgery Date(Month/Year) Knee surgery
--- OUTSIDE RECORDS SUMMARY | 2025-09-21 16:29 | XMS_ITS | CCD ---
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 Role Phone Nahid Mccoy Unavailable Clarice [...] Unavailsalome Fuller DO Dedrick CID Attending Provider aSmi Mccarty MD Primary Care Provider [phone] BECCA SCHWARZ Attending Unavailable MIGUEL MCCARTYLAS M Referring Unavailable SAMI MCCARTY M Primary Care Unavailable SAMI MCCARTY M Referring Unavailable SAMI MCCARTY M Primary Care Unavailable SHEELA, MENNATALLAH M Admitting Unavailable SHEELA, MENNATALLAH M Attending Unavailable SAMI MCCARTY M Primary Care Unavailable Marek BURK, Andalyson Rokc Attending Unavailable Marek BURK, Andrius Rock Attending Unavailable Marek BURK, Andrius Rock Attending Unavailable Marek BURK, Andalyson Rock Attending Unavailable Sami Mccarty MD Primary Care Provider [phone] Ellen DECK STEWARD, Tiesha Unavailable Shasha White DO Unavailable TIESHA HUGHES Attending Unavailable DELGADO MURILLO Attending Unavailable CAROL WEBB Attending Unavailable LOLISEDWIGE TELLEZ Referring Unavailable DELGADO MURILLO Attending Unavailable DELGADO MURILLO Attending Unavailable NON STAFF Primary Care Provider UnavailCarol Pritchett MD Attending Provider Vinayak aBltazar Attending Unavailable Vinayak Baltazar Attending Unavailable Sami Mccarty MD Attending Provider Sami Mccarty Admitting Unavailable Sami Mccarty Attending Unavailable Sami Mccarty Admitting Unavailable Sami Mccarty Attending Unavailable Carol Vidal Admitting Unavailable Carol Vidal Attending Unavailable NON STAFF Primary Care Unavailable Allergies Allergy ClassificationReported Allergen(s)Allergy TypeDate of OnsetReaction(s) Facility (10 sources)NITROFURANTOIN, MACROCRYSTALS / Nitrofurantoin, Monohydrate; Translations: [nitrofurantoin]Drug Luhkkwv50-52-4825Prxl swelling (finding), [facility]Green [facility] (2 sources)AlbuterolDrug AllergyGreen Cross HospitalComment on above: NEED TO CUT DOWN ADRENALIN TO PREVENT SEIZURES (3 sources)Bee/Wasp/Ant venom; Translations: [Bee Stings]Allergy to substance Nausea, SwellingGreen [facility] Hospital (2 sources)PECANS 1Food [facility] HospitalComment on above: AIRWAY CONSTRICTION (2 sources)bee venomDrug allergy (disorder)48-72-7535[facility]Dun[facility] (2 sources)egg extractDrug Fhbiman71-47-9544BrsDunlap Memorial Hospital Repository (4 sources)Nitrofurantoin; Translations: [Macrobid]Drug Fxkokwh02-17-2545HdpDunlap Memorial Hospital Repository (2 sources)pecan pollen extractDrug AllergyDunlap Memorial Hospital Repository (4 sources)tree nut, unspecified; Translations: [TREE NUT]Drug allergy (disorder)33-69-2157SwtDunlap Memorial Hospital Repository (16 sources)Albuterol; Translations: [albuterol]Drug Yfnpmgv76-64-2908Mgtky, Other (See Comments)[facility] Repository (12 sources)Honey bee venomAllergy to -94-8360GM[facility] (12 sources)NitrofurantoinDrug Siwalcs33-65-9483GocomvdiTTVV [facility] (12 sources)NitrofurantoinDrug Ysqqrlf07-20-7563TLXS [facility] (12 sources)Egg-Derived ProductsDrug Aqrifdh79-44-7314ESGD [facility] (16 sources)Other; Translations: [OTHER]Propensity to adverse reactions 30-99-1750STPK [facility] (2 sources)NITROFURANTOIN MONOHYD/M-CRYST; Translations: [NITROFURANTOIN MONOHYD/M-CRYST]Propensity to adverse reactions to drug (disorder)05-01-2018 [facility] Repository (2 sources)BEE VENOM PROTEIN (HONEY BEE); Translations: [BEE VENOM PROTEIN (HONEY BEE)]Propensity to adverse reactions to drug (disorder)04-05-2024 [facility] Repository (1 source)Egg; Translations: [Eggs]Food allergy (disorder)[facility] Repository (1 source)PECANS; Translations: [PECANS]Food allergy (disorder)[facility] Repository (1 source)NitrofurantoinDrug Psavros13-85-8055MvzvexriyMercy Health St. [facility] Repository Medications Current Medications MedicationDrug Class(es)DatesSig (Normalized)Sig (Original)0.25 MG, 0.5 MG Dose 3 ML semaglutide 0.68 MG/ML Pen Injector [Ozempic] (1 source)Start: 60-42-9892Ryvyifr 2 mg/3 mL (0.25 mg or 0.5 mg dose) subcutaneous solution SubCutaneous, Refills(s) 0 Start Date: 11/01/24 Status: OrderedALPRAZolam 0.25 mg oral tablet (20 sources)BenzodiazepineStart: 21-66-1729etdt 1 tablet by mouth three times daily as neededALPRAZolam (Xanax) 0.25 MG tablet Take 0.25 mg by mouth 3 (three) times a day as needed. 02/03/2023ctivetake 1 tablet by mouth once daily as needed for anxietyALPRAZolam (XANAX) 0.25 mg tablet Take 1 tablet (0.25 mg total) by mouth nightly as needed for anxiety. Fvkaej71 hr amphetamine aspartate 7.5 mg / amphetamine sulfate 7.5 mg / dextroamphetamine saccharate 7.5 mg / dextroamphetamine sulfate 7.5 mg extended release oral capsule (7 sources)Central Nervous System StimulantStart: 18-29-8270Nwlabxon XR 30 mg Cap-ER Refills(s) 0 Start Date: 11/01/24 Status: Orderedtake 1 tablet by mouth every twenty-four hours as neededamphetamine-dextroamphetamine (Adderall) 10 MG tablet Take 10 mg by mouth Daily as needed Activeaspirin 325 mg oral capsule (9 sources)Platelet Aggregation Inhibitor, Nonsteroidal Anti-inflammatory Drug Start: 83-80-9283owvc 1 mg by mouth every four hoursaspirin 325 mg oral capsule mg cap(s), Oral, q4hr, Refills(s) 0 Start Date: 11/01/24 Status: Orderedtake 1 tablet by mouth in the morningaspirin 325 mg EC tablet Take 1 tablet (325 mg total) by mouth in the morning. Activetake 1 tablet by mouth once dailyAspirin 81 81 MG 1 tablet Orally Once a day ActiveFiberCon (3 sources)Start: 52-69-3842GqojeLlc See Instructions, 3 caps BID, Refills(s) 0 Start Date: 11/01/24 Status: Orderedtake 1 tablet by mouth in the morning polycarbophil (FIBERCON) 625 mg tablet Take 1 tablet (625 mg total) by mouth in the morning. Activecelecoxib 100 mg oral capsule (5 sources)Nonsteroidal Anti-inflammatory DrugStart: 99-67-6122smwd 1 capsule by mouth twice dailycelecoxib 100 mg Cap = 1 cap(s), Oral, BID, Refills(s) 0 Start Date: 11/01/24 Status: Ordereddocusate sodium 50 mg oral capsule (2 sources)take 1 capsule by mouth in the morning, then take 1 capsule by mouth at bedtimedocusate sodium (COLACE) 50 mg capsule Take 1 capsule (50 mg total) by mouth in the morning and 1 capsule (50 mg total) before bedtime. Activedoxepin hydrochloride 10 mg oral capsule (12 sources)Tricyclic AntidepressantStart: 64-78-5302nwdf 1 capsule by mouth at bedtimedoxepin (SINEquan) 10 MG capsule Take 10 mg by mouth at bedtime. 06/09/2023 Activeestradiol 1 mg oral tablet (11 sources)EstrogenStart: 11-22-2024 End: 44-63-8829lcih 1 tablet by mouth once dailyestradiol (Estrace) 1 MG tablet Indications: H/O: hysterectomy Take 1 tablet (1 mg) by mouth Daily 30 tablet 3 11/22/2024 ActiveStart: 10-07-2024 End: 51-64-5600ayhm 1 tablet by mouth once dailyestradiol 0.5 mg Tab = 1 tab(s), Oral, Daily, Refills(s) 0 Start Date: 11/01/24 Status: Orderedfluconazole 150 mg oral tablet (10 sources)Azole AntifungalStart: 04-05-2024 End: 77-22-2985iqaa 1 tablet by mouth oncefluconazole (Diflucan) 150 MG tablet Indications: Yeast infection Take 1 tablet (150 mg) by mouth every 3rd (third) day for 2 doses 2 tablet 11/22/2024 11/26/2024 Activegabapentin 100 mg oral capsule (2 sources)Anti-epileptic Agentgabapentin (Neurontin) 100 MG capsule Take by mouth 2 (two) times a day Activelactobacillus acidophilus [id number] unt / pectin 100 mg oral tablet (2 sources)acidophilus-pectin, citrus 25 million cell -100 mg tablet Take 1 tablet by mouth in the morning and1 tablet at noon and 1 tablet in the evening. Take with meals. ActivelamoTRIgine 100 mg oral tablet (3 sources)Mood Stabilizer, Anti-epileptic AgentStart: 78-36-1667nhmg 1 tablet by mouth once dailylamotrigine 100 mg Tab = 1 tab(s), Oral, Daily, Refills(s) 0 Start Date: 11/01/24 Status: Orderedtake 1 tablet by mouth in the morning lamoTRIgine (LaMICtal) 25 mg tablet Take 1 tablet (25 mg total) by mouth in the morning. Activelisinopril 20 mg oral tablet (12 sources)Angiotensin Converting Enzyme InhibitorStart: 54-60-9841nawp 1 tablet by mouth once dailylisinopril 20 mg Tab 20 mg = 1 tab(s), Oral, Daily, Refills(s) 0 Start Date: 10/30/22 Status: Orderedmeloxicam 15 mg oral tablet (20 sources)Nonsteroidal Anti-inflammatory DrugStart: 72-72-0434sisv 1 tablet by mouth in the morningmeloxicam (Mobic) 15 MG tablet Take 15 mg by mouth in the morning. 06/14/2023 ActiveStart: 28-36-9790eyrt 1 tablet by mouth once daily meloxicam 15 mg Tab 15 mg = 1 tab(s), Oral, Daily, Refills(s) 0 Start Date: 10/30/22 Status: Ordered End: 07-09-4132adzr 1 tablet by mouth in the morningmeloxicam (MOBIC) 7.5 mg tablet Take 1 tablet (7.5 mg total) by mouth in the morning. 10/20/2024 Dis continuedmetFORMIN hydrochloride 500 mg oral tablet (3 sources)BiguanideStart: 79-21-1368rxci 1 tablet by mouth twice dailymetformin 500 mg Tab = 1 tab(s), Oral, BID, Refills(s) 0 Start Date: 11/01/24 Status: Orderedmetoprolol tartrate 75 mg oral tablet (15 sources)beta-Adrenergic BlockerStart: 01-46-6170musg 1 tablet by mouth twice dailymetoprolol tartrate 75 mg oral tablet = 1 tab(s), Oral, BID, Refills(s) 0 Start Date: 11/01/24 Status: OrderedStart: 77-78-5365cvccnheatd tartrate (Lopressor) 75 MG tablet Take 50 mg by mouth in the morning and 50 mg before bed time. 05/17/2023 ActiveStart: 38-08-4136kksm 1 tablet by mouth in the morning metoprolol tartrate (Lopressor) 50 MG tablet Take 50 mg by mouth in the morning and 50 mg before bedtime. 05/17/2023 Activemetoprolol tartrate (LOPRESSOR) 100 mg tablet Take 75 mg by mouth in the morning and 75 mg before bedtime. Active Multivitamin preparation (6 sources)take 1 tablet by mouth once dailyMultivitamin - 1 tablet Orally Once a day Activemultivitamin with iron (1 source)Start: 28-07-9669vocaurvwrtax with iron mL, Refill(s) 0 Start Date: 11/01/24 Status: Orderedomeprazole 40 mg delayed release oral capsule (20 sources)Proton Pump InhibitorStart: 79-81-8203pwoa 1 capsule by mouth twice dailyomeprazole 40 mg Cap-DR 40 mg = 1 cap(s), Oral, BID, Refills(s) 0 Start Date: 10/30/22 Status: Orderedtake 1 capsule by mouth every twenty-four hours Omeprazole 40 MG 1 cap(s) p.o. Once a day Activepeg 3350-sod sulf,gkwe-tag-efi 178.7-7.3-0.5 gram recon soln (1 source)Start: 10-13-2024 End: 02-41-2553lbq 3350-sod sulf,ucrl-fqx-ijm 178.7-7.3-0.5 gram recon soln Indications: Positive fecal occult blood test Take 1 kit by mouth once daily for 1 dose. Please see instructional sheet given by physicians office. 1 each 10/13/2024 10/14/2024 Activephentermine hydrochloride 37.5 mg oral tablet (12 sources)Sympathomimetic Amine AnorecticStart: 07-27-0744ybmg 1 tablet by mouth before mealtimephentermine (Adipex-P) 37.5 MG tablet Take 37.5 mg by mouth in the morning. Take before meals. 06/13/2023 ActivePre/Pro biotics (1 source)Start: 85-47-4611Jzf/Pro biotics Pre/Pro biotics Start Date: 11/01/24 Status: OrderedQUEtiapine 25 mg oral tablet (7 sources)Atypical AntipsychoticStart: 46-84-7233xtsr 1 tablet by mouth once dailySEROquel 25 mg Tab 25 mg = 1 tab(s), Oral, Daily, Refills(s) 0 Start Date: 10/30/22 Status: Ordered0.25 mg, 0.5 mg dose 1.5 ml semaglutide 1.34 mg/ml pen injector (9 sources)Start: 98-27-4337Aarcpms (0.25 or 0.5 MG/DOSE) 2 MG/1.5ML 0.25 mg for one month and then increase to 0.5 mg dose Subcutaneous weekly for 30 days Aug, Activesemaglutide (Ozempic, 0.25 or 0.5 MG/DOSE,) 2 MG/1.5ML solution pen-injector Inject under the skin Vbgzto289 actuat testosterone 10 mg/actuat topical gel (6 sources)AndrogenStart: 37-68-8878dvkqksdodtvf (Fortesta) 10 MG/ACT (2%) gel gel 1 pump to skin in the morning to the thighs Transdermal QOD for 30 days 10/19/2024 ActivetiZANidine 4 mg oral capsule (15 sources)Central alpha-2 Adrenergic AgonistStart: 67-94-6841Hbepqjka 4 mg oral capsule = 1 tab(s), Oral, ADHOC, Refills(s) 0 Start Date: 11/01/24 Status: OrderedStart: 18-54-7463auIRRknpwb (Zanaflex) 4 MG tablet Take 8 mg by mouth at bedtime. 06/13/2023 Activetake 1 tablet by mouth every six hours as needed tiZANidine (ZANAFLEX) 4 mg tablet Take 1 tablet (4 mg total) by mouth every 6 (six) hours as neededfor muscle spasms. Active Completed/Discontinued Medications MedicationDrug Class(es)DatesSig (Normalized)Sig (Original)0.5 ML semaglutide 0.5 MG/ML Auto-Injector [Wegovy] (5 sources)Start: 19-62-1333Osjdmf 0.25 MG/0.5ML 1 injector Subcutaneous Weekly for 28 days Aug, Not-TakingStart: 83-20-3928Auitxr 0.25 MG/0.5ML 1 injector Subcutaneous Weekly for 28 days Aug, Activesod sulf-pot chloride-mag sulf 1.479-0.188- 0.225 gram tablet (1 source)Start: 10-13-2024 End: 31-78-2215swe sulf-pot chloride-mag sulf 1.479-0.188- 0.225 gram tablet Indications: Positive fecal occult blood test Please see instructional sheet given by physicians office. 24 tablet 10/13/2024 10/13/2024 Discontinued (Alternate therapy) Problems Active Problems Problem ClassificationProblemDateDocumented DateEpisodic/ChronicAbdominal pain (9 sources)Unspecified abdominal pain; Translations: [Periumbilical pain]Onset: 05-91-4083SfkjoybwCjdouvkcnxgrig/social admission (2 sources)Patient encounter status; Translations: [Person consulting for explanation of examination or test findings]32-78-9171OtljskdtWjbtfff disorders (2 sources)Hsokkha37-18-4353ZuqnxgbRuhkqtyyxpgpq of surgical procedures or medical care (4 sources)Menopausal flushing; Translations: [Symptomatic postprocedural ovarian failure]63-34-2707NfnmqsoZxyheaapdu and other anemia (1 source)Iron deficiency xjicqv28-59-3469MgljxbfsQdebczfy mellitus without complication (5 sources)Prediabetes; Translations: [Prediabetes]Onset: 43-32-0350Ekltptbg Diseases of white blood cells (1 source)Elevated white blood cell count, unspecified; Translations: [ELEVATED WHITE BLOOD CELL COUNT UNS]Onset: 34-41-1427KragffqNuwryteow of lipid metabolism (12 sources)Mixed hyperlipidemia; Translations: [Mixed hyperlipidemia]Chronic Epilepsy; convulsions (1 source)Ywjvtcz91-94-7162DqcxnqngWkedpsgghl disorders (13 sources)Gastroesophageal reflux disease; Translations: [Gastro-esophageal reflux disease without esophagitis]Onset: 82-66-7567UfmnaxjVuppptvxp hypertension (10 sources)Hypertensive disorder; Translations: [Essential (primary) hypertension]ChronicGastritis and duodenitis (1 source)Gastritis, unspecified, without bleeding; Translations: [Gastritis, unspecified, without bleeding]Onset: 56-55-7690YamgvfraQxqjshpggaxbqj ulcer (except hemorrhage) (2 sources)H/O: gastric rnkeq99-88-5229OndvoqkdRhhiqkdeswselyfd hemorrhage (2 sources)Hemorrhage of anus and rectum; Translations: [Rectal hemorrhage] Onset: 281973-51-7679HvxdfvznRxxrvmitj disorders (3 sources)Dysmenorrhea, unspecified; Translations: [DYSMENORRHEA UNSPECIFIED] Onset: 90-09-5923VkhquluLbqmckovodppr mental health disorders (2 sources)Primary insomnia; Translations: [Primary insomnia]89-01-9604Rbyjchm Mycoses (2 sources)Mycosis; Translations: [Candidiasis, unspecified]00-69-5925Bxadehue Osteoarthritis (3 sources)Primary osteoarthritis, left hand; Translations: [Primary osteoarthritis, right hand]Onset: 627728-62-5186McyukjhYkokr aftercare (1 source)Other alf (current) drug therapy; Translations: [OTH SNF CURRENT DRUG THERAPY]Onset: 22-69-9877WmcihjfiIgxph and unspecified benign neoplasm (2 sources)Lipoma of abdominal culk44-19-0571AxcekroaPegquoq on above:E9Zuumf and unspecified benign neoplasm (2 sources)Adenoma of sigmoid jysyb18-48-6333YozuhrcpWpnsp diseases of kidney and ureters (1 source)Cyst of deiwbo04-81-1613IiqcamwlUdsvz female genital disorders (1 source)Abnormal uterine and vaginal bleeding, unspecified; Translations: [ABNORMAL UTERINE VAGINAL BLEED UNS]Onset: 78-90-2798TmpwyyyBetuo female genital disorders (2 sources)Vaginal bleeding; Translations: [Abnormal uterine and vaginal bleeding, unspecified]08-49-4564KkbarteKbdbz gastrointestinal disorders (2 sources)Irritable bowel wvydqwho34-62-2775RztnnzlRzuoh gastrointestinal disorders (1 source)Irritable bowel syndrome without diarrhea; Translations: [IRRITABLE BOWEL SYND W/O DIARRHEA]Onset: 37-35-2507LtesfjhArfpm gastrointestinal disorders (1 source)Other fecal abnormalities; Translations: [Other fecal abnormalities] Onset: 21-20-5653ApjmnvhhQagrq liver diseases (1 source)Non-alcoholic fatty iusno58-99-6422NmjxwfyFumam lower respiratory disease (2 sources)Hypoxia; Translations: [Hypoxemia]28-49-6123RdoyxwfmWszxt lower respiratory disease (2 sources)Snoring; Translations: [Snoring]33-79-4646OgfbamifEicfu nutritional; endocrine; and metabolic disorders (8 sources)Metabolic syndrome X; Translations: [Metabolic syndrome]10-30-2022 ChronicOther nutritional; endocrine; and metabolic disorders (3 sources)Metabolic syndrome; Translations: [METABOLIC SYNDROME]Onset: 32-69-6857XrkcdcxUtfvh nutritional; endocrine; and metabolic disorders (6 sources)Obesity; Translations: [Obesity, unspecified]74-15-3383VqepiwuXlgzu nutritional; endocrine; and metabolic disorders (1 source)Obesity, unspecifiedChronicOther nutritional; endocrine; and metabolic disorders (2 sources)Body mass index 30+ - vcptepp33-13-2110SpoxcxpRabjd nutritional; endocrine; and metabolic disorders (1 source)Metabolic disease; Translations: [Other specified metabolic disorders] Onset: 06-86-1270GsbweojUlmfw nutritional; endocrine; and metabolic disorders (6 sources)Abnormal weight gain; Translations: [ABNORMAL WEIGHT GAIN]Onset: 12-70-7669GdafzmypColby screening for suspected conditions (not mental disorders or infectious disease) (11 sources)Encounter for screening mammogram for malignant neoplasm of breast; Translations: [Encounter for screening for malignant neoplasm of cervix]Onset: 13-26-9557KtumoojtWphcylo cyst (3 sources)Cyst of ovary; Translations: [Unspecified ovarian cyst, right side] Onset: 080357-44-2337NrqcbotoVjmpfazy codes; unclassified (11 sources)Obstructive sleep apnea syndrome; Translations: [Obstructive sleep apnea (adult) (pediatric)]Onset: 850060-08-2532UqzacudGrooonbf codes; unclassified (5 sources)Obstructive sleep apnea (adult) (pediatric); Translations: [OBSTRUCTIVE SLEEP APNEA]Onset: 82-67-9269NhtzwnlHzkxbfui codes; unclassified (2 sources)Hypersomnia; Translations: [Hypersomnia, unspecified]02-03-2025 ChronicResidual codes; unclassified (2 sources)At risk of epileptic iqhz65-09-7313AtdptpjcNktafsqk codes; unclassified (1 source)Acquired absence of both cervix and uterus; Translations: [ACQUIRED ABSENCE BOTH CERVIX AND UTERUS]Onset: 12-45-2511ByfjxogsAtqqujox codes; unclassified (1 source)Acquired absence of other specified parts of digestive tract; Translations: [ACQ ABSENCE OTH PART DIGESTV TRACT]Onset: 55-83-2430Psqwypda Residual codes; unclassified (1 source)Family history of malignant neoplasm of breast; Translations: [FAMILY HX MALIG NEOPLASM OF BREAST]Onset: 95-46-4277HokshapsRazlzohr codes; unclassified (1 source)Family history of malignant neoplasm of ovary; Translations: [FAM HX MALIGNANT NEOPLASM OVARY]Onset: 74-63-0276ZgtexxueFxobftiw codes; unclassified (1 source)Acquired absence of organ; Translations: [Acquired absence of other specified parts of digestive tract]Onset: 01-92-6801NckuvcukKrrleuyf codes; unclassified (1 source)Menopause wyaohak90-99-4153RvcwaaobGekeeywxncf; intervertebral disc disorders; other back problems (3 sources)Neck pain; Translations: [Cervicalgia]51-72-9034ZexjewogAechmqzjv- related disorders (2 sources)Fhmcdr45-42-7528OcdltrmAclfuda on above:Added secondary to documentation in Social History.Unclassified (4 sources)CONTACT W/AND (SUSP) EXPOS COVID-19; Translations: [CONTACT W/AND (SUSP) EXPOS COVID-19]Onset: 26-51-3856Yioogvcghlhf (1 source)POSITIVE OCCULT TESTOnset: 34-02-0334Xgidmqvkwyri (1 source)Liver function test -43-1664Ldqtlbymbjvi (1 source)Saxopiexq08-96-4663Dwfzwkagsrjq (1 source)positive fecal occult bloodOnset: 10-27-2024 Past or Other Problems Problem ClassificationProblemDateDocumented DateEpisodic/ChronicImmunizations and screening for infectious disease (2 sources)Encounter for screening for human papillomavirus (HPV); Translations: [Raised antibody titer]Onset: 38-82-1866RmtkzglsQocnrhhzuxs chest pain (1 source)Chest pain, unspecified; Translations: [CHEST PAIN UNSPECIFIED]Onset: 62-94-8156HiztezufNmzai gastrointestinal disorders (1 source)Occult blood in stools; Translations: [Other fecal abnormalities] 12-28-0082GjabhxjjHucll non-traumatic joint disorders (4 sources)Pain in unspecified joint; Translations: [PAIN IN UNSPECIFIED JOINT] Onset: 75-89-2661OqagpyzuLlrvqyfexiub (1 source)CONTACT W/AND (SUSP) EXPOS COVID-19; Translations: [CONTACT W/AND (SUSP) EXPOS COVID-19]Onset: 12-04-2021 Results Test NameValueInterpretationReference RangeFacilityUrine Cultureon 09-14-2025 Bacteria identified Cx Nom (U)ORGANISM: Lactobacillus jensenii (O:LACJEN) [place] Count >100,000 Organism Comments Organism not Routinely Tested for Susceptibilities PERFORMED BY: [facility] [place] [address] [place] [address] PATHOLOGIST INSTRUMENT MAKER AND REPAIRER ANDRY WEIR M.D.[facility] Physician GroupComment on above: Performed By: #### CUU #### [facility] [address] [place] [address] USAUrine Cultureon 94-64-2395Pvadrkxg identified Cx Nom (U) >100,000 colonies/ml mixed bacterial skin contaminants 2 Days PERFORMED BY: [facility] [address] [place] [address] PATHOLOGIST INSTRUMENT MAKER AND REPAIRER ANDRY WEIR M.D.[facility] Physician GroupComment on above: Performed By: #### TPO, C3, CHROMATIN, C4, THYGLOB AB, CH50, ROSS #### [facility] ,Urine cultureOrdered By: Sami Mccarty on 98-93-1484Lwusotkz identified Cx Nom (U)[address] Vincent Medical CenterANA Antinuclear Antibodieson 52-08-9948Hlqtqszvtxp Abs, IFANegativeNormal.[facility] Comment on above:Result Comment: Negative <1:80 Borderline 1:80 Positive >1:80 ICAP nomenclature: AC-0 For more information about Hep-2 cell patterns use ANApatterns.org, the official website for the International Consensus on Antinuclear Antibody (ROSS) Patterns (ICAP). Performed at: [facility] [address] [id number] Restaurant Line Server: Bowen Mcleod PhD, Phone: [phone] By: #### TPO, C3, CHROMATIN, C4, THYGLOB AB, CH50, ROSS #### [facility] ,Alanine aminotransferase [Enzymatic activity/volume] in Serum or PlasmaOrdered By: Carol Vidal on 86-49-7137GBL [Catalytic activity/Vol]Alanine aminotransferase [Enzymatic activity/volume] in Serum or Plasma-[facility] CenterAlbumin [Mass/volume] in Serum or Plasma by Bromocresol green (BCG) dye binding methoOrdered By: Carol Vidal on 92-86-7906Kagjgve BCG dye [Mass/Vol]Albumin [Mass/volume] in Serum or Plasma by Bromocresol green (BCG) dye binding metho3.5-5.7FKettering Health Greene MemorialAldolaseon 82-23-5111Oornihat2.0 U/LNormal3.3-10.3[facility] Physician GroupComment on above:Result Comment: Performed at: [address] [id number] Restaurant Line Server: Bowen Mcleod PhD, Phone: [phone] PERFORMED BY: [facility] [address] [place] [address] PATHOLOGIST INSTRUMENT MAKER AND REPAIRER NADYA FREDERICK M.D.Performed By: #### TPO, C3, CHROMATIN, C4, THYGLOB AB, CH50, ROSS #### [facility] ,Alkaline phosphatase [Enzymatic activity/volume] in Serum or PlasmaOrdered By: Carol Vidal on 05-23-8297YKS [Catalytic activity/Vol]Alkaline phosphatase [Enzymatic activity/volume] in Serum or Hxnegf75-846KytinbyqvMercy Health St. Vincent Medical CenterAntithyroglobulin Abon 11-47-3290Bjjgjhdeudldodwfp Ab<1.2Amsgjp8.0-0.9[facility] Physician GroupComment on above:Result Comment: Thyroglobulin Antibody measured by Abril Annalise Methodology It should be noted that the presence of thyroglobulin antibodies may not be pathogenic nor diagnostic, especially at very low levels. The assay gasoline finisher has found that four percent of individuals without evidence of thyroid disease or autoimmunity will have positive TgAb levels up to 4 IU/mL. Performed at: [address] [id number] Restaurant Line Server: Bowen Mcleod PhD, Phone: [phone] By: #### TPO, C3, CHROMATIN, C4, THYGLOB AB, CH50, ROSS #### [facility] ,Appearance of UrineOrdered By: Carol Vidal on 14-79-7831Xqecugnaxy (U)Urine appearanceCleBarney Children's Medical CenterAspartate aminotransferase [Enzymatic activity/volume] in Serum or PlasmaOrdered By: Carol Vidal on 37-98-5163HOQ [Catalytic activity/Vol]Aspartate aminotransferase [Enzymatic activity/volume] in Serum or Kdgkhi36-65KvyqupdoqMercy Health St. [facility] Bacteria [Presence] in Urine by AutomatedOrdered By: Carol Vidal on 04-92-5967Wgbrmtso Auto Ql (U)Bacteria [Presence] in Urine by AutomatedNone Seen [facility] CenterBasophils Auto (Bld) [#/Vol]Ordered By: Carol Vidal on 64-59-4818Tltqqabzd (Bld) [#/Vol]Automated basophil count0.0-0.[address] [facility] CenterBasophils/100 WBC Auto (Bld)Ordered By: Carol Vidal on 71-91-2809Jnuemsatn/100 WBC (Bld)Automated basophil %.[facility] CenterBilirubin Test strip Ql (U)Ordered By: Carol Vidal on 34-36-5752Hwemwsdkc Ql (U)Bilirubin.total [Presence] in Urine by Test strip NegativeMercy Health St. Vincent Medical CenterBilirubin.total [Mass/volume] in Serum or PlasmaOrdered By: Carol Vidal on 33-72-0398Zxmvgusms [Mass/Vol] Bilirubin.total [Mass/volume] in Serum or PlasmaHigh0.3-1.0[facility] Medical CenterComment on above:Samples from patients who have taken Naproxen have shown spurious elevation in Total Bilirubin levels. A metabolite of Naproxen, O-desmethylnaproxen, has been shown to interfere with the Yvan-Shree method for measuring Total Bilirubin.C reactive protein [Mass/volume] in Serum or PlasmaOrdered By: Carol Vidal on 22-25-1286OUJ [Mass/Vol]C reactive protein [Mass/volume] in Serum or Plasma0.0-0.5FKettering Health Greene MemorialC-Reactive Proteinon 86-01-2193JKW [Mass/Vol]mg/LNormal 0.0-0.5The [facility] Physician GroupComment on above:Performed By: #### TPO, C3, CHROMATIN, C4, THYGLOB AB, CH50, ROSS #### [facility] ,Calcium [Mass/volume] in Serum or PlasmaOrdered By: Carol Vidal on 22-44-4713Oajtkif [Mass/Vol]Calcium [Mass/volume] in Serum or Plasma8.6-10.[address] [facility] Medical CenterCarbon dioxide, total [Moles/volume] in Serum or PlasmaOrdered By: Carol Vidal on 93-68-5461NG0 [Moles/Vol]Carbon dioxide, total [Moles/volume] in Serum or Ldvhyp61.0-31.0[facility] CenterChloride [Moles/volume] in Serum or PlasmaOrdered By: Carol Vidal on 70-49-1809Xdmzvbag [Moles/Vol]Chloride [Moles/volume] in Serum or Lglxtj76-[address] [facility] Medical CenterChromatin Antibodyon 59-97-9419Oimiherdg Antibody<0.2Evdhxu0.0-0.9The [facility] BiloxiComment on above:Result Comment: Performed at: [facility] [id number] Restaurant Line Server: Bowen Mcleod PhD, Phone: [phone] PERFORMED BY: [place] [address] PATHOLOGIST INSTRUMENT MAKER AND REPAIRER NADYA FREDERICK M.D.Performed By: #### TPO, C3, CHROMATIN, C4, THYGLOB AB, CH50, ROSS #### [facility] ,Coagulation Profileon 90-31-5726cVPK Coag (Bld) [Time]29.2 lOfpwvl87.1-36.5The [facility] BiloxiComment on above:Result Comment: A hematocrit value greater than 55% may lead to inaccurate results in coagulation testing. Patients having hematocrit values >55% require a special collection tube for coagulation studies. Please contact the laboratory at [phone] for redraw instructions. PERFORMED BY: [place] [address] PATHOLOGIST INSTRUMENT MAKER AND REPAIRER NADYA FREDERICK M.D.Performed By: #### SPE, UPE RAND, ASHLEY SERUM, ASHLEY,URINE #### [facility] , #### PP #### [place] [address] USAINR Coag (PPP) [Relative time]0.9 {INR}NormalThe [facility]ician [facility] BiloxiComment on above:Result Comment: INR Therapeutic Range A) Pre- and [...] patients with mechanical heart valves: 3 - 4.5Performed By: #### SPE, UPE RAND, ASHLEY SERUM, ASHLEY,URINE #### [facility] , #### PP #### [facility] [address] [id number] USAPT Coag (PPP) [Time]10.8 sNormal9.0-12.9The [facility] Physician GroupComment on above:Result Comment: A hematocrit value greater than 55% may lead to inaccurate results in coagulation testing. Patients having hematocrit values >55% require a special collection tube for coagulation studies. Please contact the laboratory at [phone] for redraw instructions.Performed By: #### SPE, UPE RAND, ASHLEY SERUM, ASHLEY,URINE #### [facility] , #### PP #### [facility] [address] [id number] USAColor Auto (U)Ordered By: Carol Vidal on 02-01-2025 Color (U)Color of Urine by AutoHarrison Community HospitalComplement C3on 07-05-9706Ttahhtxeha C3135 mg/rADqecvt48-517Yfp [facility] Comment on above:Result Comment: Performed at: - [facility] [address] [id number] Restaurant Line Server: Bowen Mcleod PhD, Phone: [phone] By: #### TPO, C3, CHROMATIN, C4, THYGLOB AB, CH50, ROSS #### [facility] ,Complement C4on 35-88-3773Ulycacepgh C421 mg/dFGccgfo63-89Ypt [facility] Physician GroupComment on above:Performed By: #### TPO, C3, CHROMATIN, C4, THYGLOB AB, CH50, ROSS #### [facility] ,Complement Total (CH50)on 09-25-5455Xzxrjlrull Total (CH50)57Normal>41The [facility] Physician GroupComment on above:Result Comment: Age Male Female 1 - 30 [...] determine out of range values. Performed at: - [address] [id number] Restaurant Line Server: Bowen Mcleod PhD, Phone: [phone] PERFORMED BY: [address] [place] [address] PATHOLOGIST INSTRUMENT MAKER AND REPAIRER NADYA FREDERICK M.D.Performed By: #### TPO, C3, CHROMATIN, C4, THYGLOB AB, CH50, ROSS #### [facility] ,Complete Blood Count Auto Diffon 16-85-8481Gawyrseil (Bld) [#/Vol]0.0 10*3/uL Normal0.0-0.2The [facility] GroupComment on above:Performed By: #### TPO, C3, CHROMATIN, C4, THYGLOB AB, CH50, ROSS #### [facility] ,Basophils/100 WBC (Bld)0.3 %Normal.The [facility] Physician GroupComment on above:Performed By: #### TPO, C3, CHROMATIN, C4, THYGLOB AB, CH50, ROSS #### [facility] ,Eosinophils (Bld) [#/Vol]0.1 10*3/uLNormal0.0-0.45The [facility] Comment on above:Performed By: #### TPO, C3, CHROMATIN, C4, THYGLOB AB, CH50, ROSS #### [facility] ,Eosinophils/100 WBC (Bld)1.3 %Normal.The [facility] Physician GroupComment on above:Performed By: #### TPO, C3, CHROMATIN, C4, THYGLOB AB, CH50, ROSS #### [facility] ,Erythrocyte distribution width (RBC) [Ratio]12.5 %Yrxnfj74.9-15.3The [facility] Physician GroupComment on above:Performed By: #### TPO, C3, CHROMATIN, C4, THYGLOB AB, CH50, ROSS #### [facility] ,Hematocrit (Bld) [Volume fraction]39.2 %Nnbhnm82.0-46.4The [facility] Physician GroupComment on above:Performed By: #### TPO, C3, CHROMATIN, C4, THYGLOB AB, CH50, ROSS #### [facility] ,Hemoglobin (Bld) [Mass/Vol]13.5 g/sJSpxkhb52.8-15.4The [facility] Physician GroupComment on above:Performed By: #### TPO, C3, CHROMATIN, C4, THYGLOB AB, CH50, ROSS #### [facility] ,Lymphocytes (Bld) [#/Vol]3.6 10*3/uLNormal1.00-4.8The [facility] Comment on above:Performed By: #### TPO, C3, CHROMATIN, C4, THYGLOB AB, CH50, ROSS #### [facility] ,Lymphocytes/100 WBC (Bld)50.6 %Normal.The [facility] Physician GroupComment on above:Performed By: #### TPO, C3, CHROMATIN, C4, THYGLOB AB, CH50, ROSS #### [facility] ,MCH (RBC) [Entitic mass]31.1 ioXobywe44.7-34.3The [facility] Comment on above:Performed By: #### TPO, C3, CHROMATIN, C4, THYGLOB AB, CH50, ROSS #### [facility] ,MCV (RBC) [Entitic vol]90.2 uTWavmwv66-020Kmf [facility] Physician GroupComment on above:Performed By: #### TPO, C3, CHROMATIN, C4, THYGLOB AB, CH50, ROSS #### [facility] ,Mean Corpuscular HGB Conc34.5 g/jYYzoalp42.0-35.0The [facility] Comment on above:Performed By: #### TPO, C3, CHROMATIN, C4, THYGLOB AB, CH50, ROSS #### [facility] ,Monocytes (Bld) [#/Vol]0.4 10*3/uLNormal0.0-0.8The [facility] Comment on above:Performed By: #### TPO, C3, CHROMATIN, C4, THYGLOB AB, CH50, ROSS #### [facility] ,Monocytes/100 WBC (Bld)6.1 %Normal.The [facility] Physician GroupComment on above:Performed By: #### TPO, C3, CHROMATIN, C4, THYGLOB AB, CH50, ROSS #### [facility] ,Neutrophils (Bld) [#/Vol]3.0 10*3/uLNormal1.8-7.7The [facility] Comment on above:Performed By: #### TPO, C3, CHROMATIN, C4, THYGLOB AB, CH50, ROSS #### [facility] ,Neutrophils/100 WBC (Bld)41.7 %Normal.The [facility] Physician GroupComment on above:Performed By: #### TPO, C3, CHROMATIN, C4, THYGLOB AB, CH50, ROSS #### [facility] ,NRBC%0.0 /100{WBC}Normal0-0.5The [facility] Physician GroupComment on above: Performed By: #### TPO, C3, CHROMATIN, C4, THYGLOB AB, CH50, ROSS #### [facility] ,Platelet mean volume (Bld) [Entitic vol]9.1 fLNormal6.3-10.7The [facility] Physician GroupComment on above:Performed By: #### TPO, C3, CHROMATIN, C4, THYGLOB AB, CH50, ROSS #### [facility] ,Platelets (Bld) [#/Vol]251 10*3/iWStdvbd384-580Rpm [facility] Comment on above:Performed By: #### TPO, C3, CHROMATIN, C4, THYGLOB AB, CH50, ROSS #### [facility] ,RBC (Bld) [#/Vol]4.34 10*6/uLNormal3.60-5.00The [facility] Comment on above:Performed By: #### TPO, C3, CHROMATIN, C4, THYGLOB AB, CH50, ROSS #### [facility] ,WBC (Bld) [#/Vol]7.2 10*3/uLNormal3.8-11.6The [facility] Physician GroupComment on above:Performed By: #### TPO, C3, CHROMATIN, C4, THYGLOB AB, CH50, ROSS #### [facility] ,Comprehensive Metabolic Panelon 29-61-7219Hjvnedb [Mass/Vol]4.7 g/dLNormal 3.5-5.7The [facility]ician [facility] BiloxiComment on above:Performed By: #### TPO, C3, CHROMATIN, C4, THYGLOB AB, CH50, ROSS #### [facility] ,Albumin/Globulin [Mass ratio]2.0 {ratio}NormalThe [facility] Comment on above:Performed By: #### TPO, C3, CHROMATIN, C4, THYGLOB AB, CH50, ROSS #### [facility] ,ALP [Catalytic activity/Vol]54 U/WWouqwz11-648Erp [facility] Comment on above:Performed By: #### TPO, C3, CHROMATIN, C4, THYGLOB AB, CH50, ROSS #### [facility] ,ALT [Catalytic activity/Vol]14 U/LNormal7-52The [facility] Comment on above:Performed By: #### TPO, C3, CHROMATIN, C4, THYGLOB AB, CH50, ROSS #### [facility] ,Anion gap [Moles/Vol]9.2 mmol/LNormal6.0-15.0The [facility] Comment on above:Performed By: #### TPO, C3, CHROMATIN, C4, THYGLOB AB, CH50, ROSS #### [facility] ,AST [Catalytic activity/Vol]15 U/YQfcify99-70Cip [facility] Comment on above:Performed By: #### TPO, C3, CHROMATIN, C4, THYGLOB AB, CH50, ROSS #### [facility] ,Bilirubin [Mass/Vol]1.3 mg/dLHigh0.3-1.0The [facility] Physician GroupComment on above:Result Comment: Samples from patients who have taken Naproxen have shown spurious elevation in Total Bilirubin levels. A metabolite of Naproxen, O-desmethylnaproxen, has been shown to interfere with the Jendrmelloik-Grof method for measuring Total Bilirubin.Performed By: #### TPO, C3, CHROMATIN, C4, THYGLOB AB, CH50, ROSS #### [facility] ,Calcium [Mass/Vol]9.5 mg/dLNormal8.6-10.3The [facility] Physician GroupComment on above:Performed By: #### TPO, C3, CHROMATIN, C4, THYGLOB AB, CH50, ROSS #### [facility] ,Chloride [Moles/Vol]104 mmol/BPqejwj29-470Nqa [facility] Physician GroupComment on above:Performed By: #### TPO, C3, CHROMATIN, C4, THYGLOB AB, CH50, ROSS #### [facility] ,CO2 [Moles/Vol]29.5 mmol/JFdbrft50.0-31.0The [facility] Physician GroupComment on above:Performed By: #### TPO, C3, CHROMATIN, C4, THYGLOB AB, CH50, ROSS #### [facility] ,Creatinine [Mass/Vol]0.73 mg/dLNormal0.60-1.20The [facility] Comment on above:Performed By: #### TPO, C3, CHROMATIN, C4, THYGLOB AB, CH50, ROSS #### [facility] ,GFR/1.73 sq M.predicted MDRD (S/P/Bld) [Vol rate/Area]mL/min/{1.73_m2}NormalThe [facility] Physician GroupComment on above:Performed By: #### TPO, C3, CHROMATIN, C4, THYGLOB AB, CH50, ROSS #### [facility] ,Globulin (S) [Mass/Vol]2.3 g/dLNormalThe [facility] Physician GroupComment on above:Performed By: #### TPO, C3, CHROMATIN, C4, THYGLOB AB, CH50, ROSS #### [facility] ,Glucose [Mass/Vol]79 mg/uAKdlgpk15-711Hhn [facility] Physician GroupComment on above:Result Comment: Random Glucose Reference Range is dependent on time and content of last meal. Glucose of more than 200 mg/dL in a nonstressed, ambulatory subject supports the diagnosis of Diabetes Mellitus. ADA recommended reference rangePerformed By: #### TPO, C3, CHROMATIN, C4, THYGLOB AB, CH50, ROSS #### [facility] ,Potassium [Moles/Vol]3.7 mmol/LNormal3.5-5.1The [facility] Comment on above:Performed By: #### TPO, C3, CHROMATIN, C4, THYGLOB AB, CH50, ROSS #### [facility] ,Protein [Mass/Vol]7.0 g/dLNormal6.4-8.9The [facility] Physician GroupComment on above:Performed By: #### TPO, C3, CHROMATIN, C4, THYGLOB AB, CH50, ROSS #### [facility] ,Sodium [Moles/Vol]139 mmol/ZYucrbz705-702Zdh [facility] Physician GroupComment on above:Performed By: #### TPO, C3, CHROMATIN, C4, THYGLOB AB, CH50, ROSS #### [facility] ,Urea nitrogen [Mass/Vol]9 mg/dLNormal7-25The [facility] Physician GroupComment on above:Performed By: #### TPO, C3, CHROMATIN, C4, THYGLOB AB, CH50, ROSS #### [facility] ,Creatine Kinaseon 04-36-0680SS [Catalytic activity/Vol]77 U/RGednzx59-061Ubk [facility] Physician GroupComment on above:Result Comment: PERFORMED BY: [facility] [place] [address] PATHOLOGIST INSTRUMENT MAKER AND REPAIRER NADYA FREDERICK M.D.Performed By: #### TPO, C3, CHROMATIN, C4, THYGLOB AB, CH50, ROSS #### [facility] ,Creatine kinase [Enzymatic activity/volume] in Serum or PlasmaOrdered By: Carol Vidal on 23-57-2727IS [Catalytic activity/Vol]Creatine kinase [Enzymatic activity/volume] in Serum or Xmrsgb53-216YrcaqyypjMercy Health St. Vincent Medical CenterCreatinine [Mass/volume] in Serum or PlasmaOrdered By: Carol Vidal on 56-79-3622Gguhiwponc [Mass/Vol]Creatinine [Mass/volume] in Serum or Plasma 0.60-1.20[facility] Medical CenterDipstick and Microscopicon 02-01-2025 Appearance (U)ClearNormalClearThe [facility] Physician GroupComment on above: Order Comment: Name Collection Type:: Clean-Voided MidstreamPerformed By: #### TPO, C3, CHROMATIN, C4, THYGLOB AB, CH50, ROSS #### [facility] ,Bacteria,UrineNone SeenNormalNone SeenThe [facility] Physician GroupComment on above:Order Comment: Name Collection Type:: Clean-Voided MidstreamPerformed By: #### TPO, C3, CHROMATIN, C4, THYGLOB AB, CH50, ROSS #### [facility] ,Bilirubin,UrineNegativeNormalNegativeThe [facility] Physician GroupComment on above:Order Comment: Name Collection Type:: Clean-Voided MidstreamPerformed By: #### TPO, C3, CHROMATIN, C4, THYGLOB AB, CH50, ROSS #### [facility] ,Color (U)YellowNormalYellowThe [facility] Physician GroupComment on above:Order Comment: Name Collection Type:: Clean-Voided MidstreamPerformed By: #### TPO, C3, CHROMATIN, C4, THYGLOB AB, CH50, ROSS #### [facility] ,Glucose Ql (U)NormalNormalNormalThe [facility] Physician GroupComment on above: Order Comment: Name Collection Type:: Clean-Voided MidstreamPerformed By: #### TPO, C3, CHROMATIN, C4, THYGLOB AB, CH50, ROSS #### [facility] ,Hyaline Casts,UrineNoneNormal0-8The [facility] Physician GroupComment on above: Order Comment: Name Collection Type:: Clean-Voided MidstreamPerformed By: #### TPO, C3, CHROMATIN, C4, THYGLOB AB, CH50, ROSS #### [facility] ,Ketones Ql (U)NegativeNormalNegativeHca [facility] Hospital Physician GroupComment on above:Order Comment: Name Collection Type:: Clean-Voided MidstreamPerformed By: #### TPO, C3, CHROMATIN, C4, THYGLOB AB, CH50, ROSS #### [facility] ,Leukocyte esterase Test strip Ql (U)NegativeNormalNegativeHca [facility] Physician GroupComment on above:Order Comment: Name Collection Type:: Clean- Voided MidstreamPerformed By: #### TPO, C3, CHROMATIN, C4, THYGLOB AB, CH50, ROSS #### [facility] ,Mucus,Urine3+Critically abnormalThe [facility] Physician GroupComment on above: Order Comment: Name Collection Type:: Clean-Voided MidstreamResult Comment: PERFORMED BY: [address] [address] [place] [address] PATHOLOGIST INSTRUMENT MAKER AND REPAIRER NADYA FREDERICK M.D.Performed By: #### TPO, C3, CHROMATIN, C4, THYGLOB AB, CH50, ROSS #### [facility] ,Nitrite,UrineNegativeNormalNegativeThe [facility]ician GroupComment on above:Order Comment: Name Collection Type:: Clean-Voided MidstreamPerformed By: #### TPO, C3, CHROMATIN, C4, THYGLOB AB, CH50, ROSS #### [facility] ,Occult Blood,UrineNegativeNormalNegativeThe [facility]ician GroupComment on above:Order Comment: Name Collection Type:: Clean-Voided MidstreamPerformed By: #### TPO, C3, CHROMATIN, C4, THYGLOB AB, CH50, ROSS #### [facility] ,pH (U)6.0 [pH]Normal5.0-9.0The [facility] Physician GroupComment on above:Order Comment: Name Collection Type:: Clean-Voided MidstreamPerformed By: #### TPO, C3, CHROMATIN, C4, THYGLOB AB, CH50, ROSS #### [facility] ,Protein,UrineTraceHighNegativeThe [facility] Physician GroupComment on above: Order Comment: Name Collection Type:: Clean-Voided MidstreamPerformed By: #### TPO, C3, CHROMATIN, C4, THYGLOB AB, CH50, ROSS #### [facility] ,RBC,Hlykt0-0Wmwpgp1-2Sqw [facility] Physician GroupComment on above:Order Comment: Name Collection Type:: Clean-Voided MidstreamPerformed By: #### TPO, C3, CHROMATIN, C4, THYGLOB AB, CH50, ROSS #### [facility] ,Specificy Tonica,Urine1.343Fimqkr5.001-1.030The [facility] Comment on above:Order Comment: Name Collection Type:: Clean-Voided Midstream Performed By: #### TPO, C3, CHROMATIN, C4, THYGLOB AB, CH50, ROSS #### [facility] ,Squamous Epithelial Cell,Xajlp4-2Gjeagq3-8Cjj [facility] Physician GroupComment on above:Order Comment: Name Collection Type:: Clean-Voided MidstreamPerformed By: #### TPO, C3, CHROMATIN, C4, THYGLOB AB, CH50, ROSS #### [facility] ,Urobilinogen,UrineNormalNormalNormalThe [facility] Physician GroupComment on above:Order Comment: Name Collection Type:: Clean-Voided MidstreamPerformed By: #### TPO, C3, CHROMATIN, C4, THYGLOB AB, CH50, ROSS #### [facility] ,WBC,Kqmau0-4Zznlpy0-4Idt [facility] Physician GroupComment on above:Order Comment: Name Collection Type:: Clean-Voided MidstreamPerformed By: #### TPO, C3, CHROMATIN, C4, THYGLOB AB, CH50, ROSS #### [facility] ,Eosinophils Auto (Bld) [#/Vol]Ordered By: Carol Vidal on 02-01-2025 Eosinophils (Bld) [#/Vol]Automated eosinophil count0.0-0.45[facility] Medical CenterEosinophils/100 WBC Auto (Bld)Ordered By: Carol Vidal on 05-87-8815Eydbgyjgqdx/100 WBC (Bld)Automated eosinophil %.[facility] Medical CenterEpithelial cells.squamous [#/area] in Urine sediment by Automated countOrdered By: Carol Vidal on 69-98-9669Bollnyszue cells.squamous Auto (Urine sed) [#/Area]Epithelial cells.squamous [#/area] in Urine sediment by Automated count0-2FKettering Health Greene MemorialErythrocyte Sedimentation Rateon 81-68-0661BBK (Bld) [Velocity]8 mm/hNormal0-19The [facility] Physician GroupComment on above:Result Comment: PERFORMED BY: [facility] [address] [place] [address] PATHOLOGIST INSTRUMENT MAKER AND REPAIRER NADYA FREDERICK M.D.Performed By: #### TPO, C3, CHROMATIN, C4, THYGLOB AB, CH50, ROSS #### [facility] ,Erythrocyte distribution width Auto (RBC) [Ratio]Ordered By: Carol Vidal on 04-50-1646Jnpngxgnnqq distribution width (RBC) [Ratio]Erythrocyte distribution width [Ratio] by Automated count11.9-15.3FKettering Health Greene Memorial Erythrocyte sedimentation rate by Photometric methodOrdered By: Carol Vidal on 24-14-1217WEY Photometric method (Bld) [Velocity]Erythrocyte sedimentation rate by Photometric method0[facility] St[facility] Medical CenterErythrocytes [#/area] in Urine sediment by Automated countOrdered By: Carol Vidal on 16-07-2840PCD Auto (Urine sed) [#/Area]Erythrocytes [#/area] in Urine sediment by Automated count0-[facility] MemorialFree T4 (Free Thyroxine)on 38-82-6547Rniu T4 [Mass/Vol]0.96 ng/dLNormal0.61-1.12The [facility] Physician GroupComment on above:Performed By: #### TPO, C3, CHROMATIN, C4, THYGLOB AB, CH50, ROSS #### [facility] ,Globulin Calc (S) [Mass/Vol]Ordered By: Carol Vidal on 25-82-2828Nkhhkfmv (S) [Mass/Vol]Serum globulin measurement by calculation (mass/volume)[facility] Medical CenterGlucose [Mass/volume] in Serum or PlasmaOrdered By: Carol Vidal on 71-87-5041Amcdvay [Mass/Vol]Glucose [Mass/volume] in Serum or Ptpelk24-696TupkdxydsMercy Health St. Vincent Medical CenterComment on above:ADA recommended reference rangeRandom Glucose Reference Range is dependent on time and content of last meal. Glucose of more than 200 mg/dL in a nonstressed, ambulatory subject supports the diagnosisof Diabetes Mellitus.Glucose [Mass/volume] in Urine by Test stripOrdered By: Carol Vidal on 14-26-7657Tymilbs Test strip (U) [Mass/Vol]Glucose [Mass/volume] in Urine by Test stripNormalMercy Health St. Vincent Medical CenterHematocrit Auto (Bld) [Volume fraction]Ordered By: Carol Vidal on 21-75-1055Oomzowyjul (Bld) [Volume fraction]Hematocrit [Volume Fraction] of Blood by Automated count34.0-46.4FKettering Health Greene Memorial Hemoglobin Test strip Ql (U)Ordered By: Carol Vidal on 44-73-2472Ljuixjdipe Ql (U)Hemoglobin [Presence] in Urine by Test stripNegativeMercy Health St. Vincent Medical CenterHemoglobin [Mass/volume] in BloodOrdered By: Carol Vidal on 11-49-5950Rlcyikjgsg (Bld) [Mass/Vol]Hemoglobin [Mass/volume] in Blood11.8-15.[address] [facility] Medical CenterHyaline casts [#/area] in Urine sediment by Automated countOrdered By: Carol Vidal on 09-11-9390Afvooso casts Auto (Urine sed) [#/Area]Hyaline casts [#/area] in Urine sediment by Automated count0-[address] [facility] Medical CenterINR in Platelet poor plasma by Coagulation assayOrdered By: Carol Vidal on 90-07-3697ZAJ Coag (PPP) [Relative time]INR in Platelet poor plasma by Coagulation assayMercy Health St. Vincent Medical Center Comment on above:INR Therapeutic Range A) Pre- and Peroperative OAT started two weeks before surgery. NOT HIP SURGERY: 1.5 - 2.5 HIP SURGERY: 2 - 3B) Primary and secondary prevention of venous THROMBOSIS: 2 - 3C) Active venous thrombosis, pulmonary embolismand prevention of recurrent venous thrombosis: 2 - 3D) Preve ntion of arterial thromboembolismincluding patients with mechanical heart valves: 3 - 4.5Immunofixation, (ASHLEY), Urineon 19-64-3431Znlconkxkobiwl, (ASHLEY), UrineCommentNormal.The [facility] Physician GroupComment on above:Result Comment: No monoclonality detected. Performed at: - [facility] [id number] Restaurant Line Server: Bowen Mcleod PhD, Phone: [phone] By: #### SPE, UPE RAND, ASHLEY SERUM, ASHLEY,URINE #### [facility] , #### PP #### [place] [address] USAImmunofixation,Serumon 85-48-8258Tllepcupewkhte, Serum CommentNormal.The [facility] Physician GroupComment on above:Result Comment: No monoclonality detected.Performed By: #### TPO, C3, CHROMATIN, C4, THYGLOB AB, CH50, ROSS #### [facility] ,Immunoglobulin A, Bnmwm053 mg/gTWkhjrr89-439[facility] Comment on above:Performed By: #### TPO, C3, CHROMATIN, C4, THYGLOB AB, CH50, ROSS #### [facility] ,Immunoglobulin G983 mg/pCJpczvv123-1290Vje [facility] Physician GroupComment on above:Performed By: #### TPO, C3, CHROMATIN, C4, THYGLOB AB, CH50, ROSS #### [facility] ,Immunoglobulin M, Serum75 mg/mXDqmqvy29-819Aph Firelands Physician GroupComment on above:Result Comment: Performed at: [facility] Lab[address] [id number] Restaurant Line Server: Bowen Mcleod PhD, Phone: [phone] By: #### TPO, C3, CHROMATIN, C4, THYGLOB AB, CH50, ROSS #### [facility] ,Ketones Test strip Ql (U)Ordered By: Carol Vidal on 26-82-6285Luedcmk Ql (U) Ketones [Presence] in Urine by Test stripNegTogus VA Medical CenterLeukocyte esterase [Presence] in Urine by Test stripOrdered By: Carol Vidal on 44-03-7454Upubpyjce esterase Test strip Ql (U)Leukocyte esterase [Presence] in Urine by Test stripNegTogus VA Medical Center Leukocytes [#/area] in Urine sediment by Automated countOrdered By: Carol Vidal on 83-41-3863GRK Auto (Urine sed) [#/Area]Leukocytes [#/area] in Urine sediment by Automated count0-4FKettering Health Greene MemorialLeukocytes [#/volume] corrected for nucleated erythrocytes in Blood by Automated coun Ordered By: Carol Vidal on 97-67-0355EGA corrected for nucl RBC Auto (Bld) [#/Vol]Leukocytes [#/volume] corrected for nucleated erythrocytes in Blood by Automated coun3.8-11.6FKettering Health Greene MemorialLupus Anticoagulant Comp on 60-77-8420Gvhdsh Prothrombin Time (dPt)38.8Icopnu9.0-47.6The [facility] Physician GroupComment on above:Performed By: #### TPO, C3, CHROMATIN, C4, THYGLOB AB, CH50, ROSS #### [facility] ,dPT Confirm Ratio0.10Rjhxyk7.00-1.34The [facility] Physician GroupComment on above:Performed By: #### TPO, C3, CHROMATIN, C4, THYGLOB AB, CH50, ROSS #### [facility] ,DRVVT Lupus34.3Cnoetq7.0-47.0[facility] Physician GroupComment on above: Performed By: #### TPO, C3, CHROMATIN, C4, THYGLOB AB, CH50, ROSS #### [facility] ,InterpretationComment:Normal.[facility] Physician GroupComment on above: Result Comment: No lupus anticoagulant was detected. Performed at: - [facility]co[address] [id number] Restaurant Line Server: Raegan Gong MD, Phone: [phone] PERFORMED BY: [address] [place] [address] PATHOLOGIST INSTRUMENT MAKER AND REPAIRER NADYA FREDERICK M.D.Performed By: #### TPO, C3, CHROMATIN, C4, THYGLOB AB, CH50, ROSS #### [facility] ,PTT-LA42.0Rkmruh4.0-43.5The [facility] Physician GroupComment on above:Performed By: #### TPO, C3, CHROMATIN, C4, THYGLOB AB, CH50, ROSS #### [facility] ,Thrombin Time14.4Cpuhyr1.0-23.0The [facility] Physician GroupComment on above: Performed By: #### TPO, C3, CHROMATIN, C4, THYGLOB AB, CH50, ROSS #### [facility] ,Lymphocytes Auto (Bld) [#/Vol]Ordered By: Carol Vidal on 02-01-2025 Lymphocytes (Bld) [#/Vol]Lymphocytes [#/volume] in Blood by Automated count 1.00-4.8[facility] Medical CenterLymphocytes/100 WBC Auto (Bld)Ordered By: Carol Vidal on 26-28-4664Etxcjzpxdaj/100 WBC (Bld)Lymphocytes/100 leukocytes in Blood by Automated count.[facility] Medical CenterMCH Auto (RBC) [Entitic mass]Ordered By: Carol Vidal on 48-87-1690BMR (RBC) [Entitic mass]MCH [Entitic mass] by Automated count24.7-34.3FKettering Health Greene MemorialMCHC Auto (RBC) [Mass/Vol]Ordered By: Carol Vidal on 43-16-6229XFYB (RBC) [Mass/Vol]MCHC [Mass/volume] by Automated count32.0-35.0[facility] Medical CenterMCV Auto (RBC) [Entitic vol]Ordered By: Carol Vidal on 07-02-2389BYY (RBC) [Entitic vol]MCV [Entitic volume] by Automated kvohj63-[address] [facility] Medical CenterMonocytes Auto (Bld) [#/Vol]Ordered By: Carol Vidal on 08-66-1150Umuhmztba (Bld) [#/Vol]Automated blood monocyte count 0.0-0.8[facility] Medical CenterMonocytes/100 WBC Auto (Bld)Ordered By: Carol Vidal on 82-48-3994Dzeisgowd/100 WBC (Bld)Automated monocyte %. [facility] Medical CenterMucus [Presence] in Urine by AutomatedOrdered By: Carol Vidal on 75-13-8179Owazb Auto Ql (U)Mucus [Presence] in Urine by AutomatedAbnormalMercy Health St. Vincent Medical CenterNeutrophils Auto (Bld) [#/Vol] Ordered By: Carol Vidal on 67-32-4902Samgldjznvg (Bld) [#/Vol]Neutrophils [#/volume] in Blood by Automated count1.8-7.7FKettering [facility] Memorial Neutrophils/100 WBC Auto (Bld)Ordered By: Carol Vidal on 02-01-2025 Neutrophils/100 WBC (Bld)Automated neutrophil %.[facility] Vincent Medical CenterNitrite Test strip Ql (U)Ordered By: Carol Vidal on 92-61-5807Zdhupqs Ql (U)Nitrite [Presence] in Urine by Test stripNegativeMercy Health St. Vincent Medical CenterNo Panel InformationOrdered By: Carol Vidal on 02-01-2025 Estimated GFR (CKD-EPI)> 60.0 mL/MinMercy Health St. Vincent Medical CenterPharmacy Creatinine Clearance (ChemN/AFKettering Health Greene MemorialNucleated erythrocytes [Presence] in Blood by Automated countOrdered By: Carol Vidal on 15-91-8445Awqhfzlrb RBC Auto Ql (Bld)Nucleated erythrocytes [Presence] in Blood by Automated count0-0.5FKettering Health Greene MemorialPlatelet mean volume Auto (Bld) [Entitic vol]Ordered By: Carol Vidal on 14-67-3276Ewoqdncy mean volume (Bld) [Entitic vol]Platelet mean volume [Entitic volume] in Blood by Automated count6.3-10.7FKettering Health Greene MemorialPlatelets Auto (Bld) [#/Vol]Ordered By: Carol Vidal on 42-15-7998Yhhngiaie (Bld) [#/Vol]Platelets [#/volume] in Blood by Automated vittt315-105OpykfxeowMercy Health St. Vincent Medical Center Potassium [Moles/volume] in Serum or PlasmaOrdered By: Carol Vidal on 63-56-0894Nnnuskavu [Moles/Vol]Potassium [Moles/volume] in Serum or Plasma 3.5-5.1FKettering Health Greene MemorialProtein Electro, Random Urineon 90-16-7837Meiakwz, Urine41.6 %Normal.[facility] Physician GroupComment on above:Performed By: #### TPO, C3, CHROMATIN, C4, THYGLOB AB, CH50, ROSS #### [facility] ,Byiyu-5-Lvbnwpdw, Urine1.3 %Normal.[facility] Physician GroupComment on above:Performed By: #### TPO, C3, CHROMATIN, C4, THYGLOB AB, CH50, ROSS #### [facility] ,Dbsfm-6-Ojjluvww, Urine22.3 %Normal.[facility] Physician GroupComment on above:Performed By: #### TPO, C3, CHROMATIN, C4, THYGLOB AB, CH50, ROSS #### [facility] ,Beta Globulin, Urine24.6 %Normal.[facility] Physician GroupComment on above: Performed By: #### TPO, C3, CHROMATIN, C4, THYGLOB AB, CH50, ROSS #### [facility] ,Gamma Globulin, Urine10.1 %Normal.[facility] Physician GroupComment on above:Performed By: #### TPO, C3, CHROMATIN, C4, THYGLOB AB, CH50, ROSS #### [facility] ,M-Saleem %Not ObservedNormalNot ObservedThe [facility] Physician GroupComment on above:Performed By: #### TPO, C3, CHROMATIN, C4, THYGLOB AB, CH50, ROSS #### [facility] ,Please Note:CommentNormal.[facility] Physician GroupComment on above:Result Comment: Protein electrophoresis scan will follow via computer, mail, or cad operator delivery. PERFORMED BY: [address] [address] PATHOLOGIST INSTRUMENT MAKER AND REPAIRER NADYA FREDERICK M.D.Performed By: #### TPO, C3, CHROMATIN, C4, THYGLOB AB, CH50, ROSS #### [facility] ,Protein (U) [Mass/Vol]23.9 mg/dLNormalNot Estab.[facility] Comment on above:Performed By: #### TPO, C3, CHROMATIN, C4, THYGLOB AB, CH50, ROSS #### [facility] ,Protein Electrophoresis, Serumon 35-85-8883Bfmotjp [Mass/Vol]4.2 g/dLNormal 2.9-4.4The [facility] Physician GroupComment on above:Performed By: #### TPO, C3, CHROMATIN, C4, THYGLOB AB, CH50, ROSS #### [facility] ,Albumin/Globulin [Mass ratio]1.6 {ratio}Normal0.7-1.7The [facility] Physician GroupComment on above:Performed By: #### TPO, C3, CHROMATIN, C4, THYGLOB AB, CH50, ROSS #### [facility] ,Wbseu-8-Didrfitw5.2 g/dLNormal0.0-0.4The [facility] Physician GroupComment on above:Performed By: #### TPO, C3, CHROMATIN, C4, THYGLOB AB, CH50, ROSS #### [facility] ,Smapn-9-Iwhjimzt9.6 g/dLNormal0.4-1.0The [facility] Physician GroupComment on above:Performed By: #### TPO, C3, CHROMATIN, C4, THYGLOB AB, CH50, ROSS #### [facility] ,Beta Globulin1.0 g/dLNormal0.7-1.3The [facility] Physician GroupComment on above:Performed By: #### TPO, C3, CHROMATIN, C4, THYGLOB AB, CH50, ROSS #### [facility] ,Gamma Globulin0.8 g/dLNormal0.4-1.8The [facility] Physician GroupComment on above:Performed By: #### TPO, C3, CHROMATIN, C4, THYGLOB AB, CH50, ROSS #### [facility] ,Globulin (S) [Mass/Vol]2.6 g/dLNormal2.2-3.9[facility] Comment on above:Performed By: #### TPO, C3, CHROMATIN, C4, THYGLOB AB, CH50, ROSS #### [facility] ,M-SpikeNot ObservedNormalNot ObservedThe [facility] Physician GroupComment on above:Performed By: #### TPO, C3, CHROMATIN, C4, THYGLOB AB, CH50, ROSS #### [facility] ,Protein [Mass/Vol]6.8 g/dLNormal6.0-8.5The [facility] Physician GroupComment on above:Performed By: #### TPO, C3, CHROMATIN, C4, THYGLOB AB, CH50, ROSS #### [facility] ,SPE-NoteCommentNormal.[facility] Physician GroupComment on above:Result Comment: Protein electrophoresis scan will follow via computer, mail, or cad operator delivery. Performed at: [facility] [address] [place] [id number] Restaurant Line Server: Bowen Mcleod PhD, Phone: [phone] PERFORMED BY: [place] [address] PATHOLOGIST INSTRUMENT MAKER AND REPAIRER NADYA FREDERICK M.D.Performed By: #### TPO, C3, CHROMATIN, C4, THYGLOB AB, CH50, ROSS #### [facility] ,Protein Test strip (U) [Mass/Vol]Ordered By: Carol Vidal on 02-01-2025 Protein (U) [Mass/Vol]Protein [Mass/volume] in Urine by Test stripHighNegative [facility] Medical CenterProtein [Mass/volume] in Serum or PlasmaOrdered By: Carol Vidal on 71-81-5909Tluzwjm [Mass/Vol]Protein [Mass/volume] in Serum or Plasma6.4-8.9[facility] Medical CenterProthrombin time (PT) Ordered By: Carol Vidal on 24-07-4174DP Coag (PPP) [Time]Prothrombin time (PT)9.0-12.9[facility] Vincent Medical CenterComment on above:A hematocrit value greater than 55% may lead to inaccurate results in coagulation testing. Patientshaving hematocrit values >55% require a special collection tube for coagulation studies. Please contact the laboratory at [phone] for redraw instructions.RBC Auto (Bld) [#/Vol]Ordered By: Carol Vidal on 07-73-2274VOX (Bld) [#/Vol]Erythrocytes [#/volume] in Blood by Automated count3.60-5.[address] [facility] Medical CenterRPR w/rfx to Quant TP Abson 16-77-9547FRM, Rfx Quant RPRNon-ReactiveNormalNon ReactiveThe [facility] Physician GroupComment on above:Result Comment: Performed at: CB - Lab[address] [id number] Restaurant Line Server: Bowen Mcleod PhD, Phone: [phone] PERFORMED BY: [address] [place] [address] PATHOLOGIST INSTRUMENT MAKER AND REPAIRER NADYA FREDERICK M.D.Performed By: #### TPO, C3, CHROMATIN, C4, THYGLOB AB, CH50, ROSS #### [facility] ,Serum or plasma albumin/globulin mass ratioOrdered By: Carol Vidal on 84-54-8218Bjzptjb/Globulin [Mass ratio]Serum or plasma albumin/globulin mass ratioTrinity Health System Twin City Medical Centererum or plasma anion gap determination Ordered By: Carol Vidal on 57-17-6463Qphin gap [Moles/Vol]Serum or plasma anion gap determination6.0-15.0[facility] Medical Centerodium [Moles/volume] in Serum or PlasmaOrdered By: Carol Vidal on 14-22-9878Dtwfhr [Moles/Vol]Sodium [Moles/volume] in Serum or Lgbgpi199-354XyswwhvurTrinity Health System Twin City Medical Centerpecific gravity Test strip (U) [Rel density]Ordered By: Carol Vidal on 93-10-3694Thctlkvt gravity (U) [Rel density]Specific gravity of Urine by Test strip1.001-1.030[facility] Vincent Medical CenterThyroid Peroxidase Antibodieson 90-02-4572Dfikynx Peroxidase Rbrlzbblnx04 [IU]/mLNormal0-34The [facility] Physician GroupComment on above:Result Comment: Performed at: [facility] Lab[address] [id number] Restaurant Line Server: Bowen Mcleod PhD, Phone: [phone] By: #### TPO, C3, CHROMATIN, C4, THYGLOB AB, CH50, ROSS #### [facility] ,Thyroid Stimulating Hormoneon 51-35-0128LQK Qn2.21 m[IU]/LNormal0.45-5.33The [facility] Physician GroupComment on above:Result Comment: PERFORMED BY: [address] [place] [address] PATHOLOGIST INSTRUMENT MAKER AND REPAIRER NADYA FREDERICK M.D.Performed By: #### TPO, C3, CHROMATIN, C4, THYGLOB AB, CH50, ROSS #### [facility] ,Thyrotropin [Units/volume] in Serum or PlasmaOrdered By: Carol Vidal on 53-77-5142SXP QnThyrotropin [Units/volume] in Serum or Plasma0.45-5.33[facility] Vincent Medical CenterThyroxine (T4) free [Mass/volume] in Serum or Plasma Ordered By: Carol Vidal on 61-85-1133Miht T4 [Mass/Vol]Thyroxine (T4) free [Mass/volume] in Serum or Plasma0.61-1.12[facility] Medical CenterUrea nitrogen [Mass/volume] in Serum or PlasmaOrdered By: Carol Vidal on 26-83-3864Wcvn nitrogen [Mass/Vol]Urea nitrogen [Mass/volume] in Serum or Plasma 7-25[facility] Vincent Medical CenterUrobilinogen Test strip (U) [Mass/Vol] Ordered By: Carol Vidal on 83-25-4901Acckrooospym (U) [Mass/Vol]Urobilinogen [Mass/volume] in Urine by Test stripNoCentervilleWBC Auto (Bld) [#/Vol]Ordered By: Carol Vidal on 31-87-2344ZTE (Bld) [#/Vol] Leukocytes [#/volume] in Blood by Automated count3.8-11.6FKettering Health Greene MemorialaPTT in Platelet poor plasma by Coagulation assayOrdered By: Carol Vidal on 30-29-6530uXHI Coag (PPP) [Time]Activated partial thromboplastin time (aPTT) in platelet poor plasma by coagulation a25.1-36.[address] Vincent Medical CenterComment on above:A hematocrit value greater than 55% may lead to inaccurate results in coagulation testing. Patientshaving hematocrit values >55% require a special collection tube for coagulation studies. Please contact the laboratory at [phone] for redraw instructions. pH Test strip (U)Ordered By: Carol Vidal on 01-24-6759nD (U)pH of Urine by Test strip5.0-9.0[facility] Medical CenterIGP,APTIMA HPV,AGE GDLNon 16-84-5658GQH GDLN ACOG TESTINGNote.[facility] HealthcareComment on above:TESTS RESULT FLAG UNITS REF RANGE LAB Clinician Provided Cytology Information Source.............Vagina No. of containers..01 ThinPrep Vial Age Algo ACOG Mya... 30- FLAG LEGEND: L-Low Normal,H-High Normal,LL-Alert Low,HH-Alert High <-Panic Low,>-Panic High,A-Abnormal,AA-Critical Abnormal Performed at: 01 =[address] [place] [address] Britta Wang MD, HPV APTIMANegativeNegativeNOMS HealthcareComment on above:This nucleic acid amplification test detects fourteen high- risk HPV types (16,18,31,33,35,39,45,51,52,56,58,59,66,68) without differentiation. Performed at: =[address], [place] [id number] Restaurant Line Server: Britta Wang MD, Phone: [phone] Performed at: [facility] [address] [place] [id number] Restaurant Line Server: Kristian Waterman MD, Phone: [phone] IGP, APTIMA HPV, RFX 16/18,45Note.NOMS [facility] Medical CenterComment on above:TESTS RESULT FLAG UNITS REF RANGE LAB DIAGNOSIS: 02 NEGATIVE FOR INTRAEPITHELIAL LESION OR MALIGNANCY. FUNGAL ORGANISMS MORPHOLOGICALLY CONSISTENT WITH VIVIANE SPECIES ARE PRESENT. Specimen adequacy: 02 Satisfactory for evaluation. Endocervical and/or squamous metaplastic cells (endocervical component) are present. Performed by: 02 Steve Saenz Precision Grinder External ([facility]) . 02 Note: Note 03 The Pap [...] High,A-Abnormal,AA-Critical Abnormal Performed at: 02 KWCYT [facility] [address] [place] [address] Kristian Waterman MD, 03 WB [facility] [address] [address] Britta Wang MD, SPATULA-ALONE [facility] HospitalGastroenterology Office/Clinic Noteon 11-01-2024 Gastroenterology Office/Clinic NoteGastroenterology Office/Clinic Note HPI Staff Patient is a 49 year old female who was referred by Dr Mccarty for elevated LFTs. LFTs did improve after being repeated a week later. previous EGD/ Colonoscopy - Friday, done at [facility] with Dr. Li blood thinners- 325 daily [...] Extraction of wisdom to (more content not included)...[facility]oria City HospitalComment on above:Result Comment: Electronically Signed By: Delaney BURK, Vinayak Jimenez\.br\Date and Time Signed: 11/01/2414:36 ESTH PYLORI SCREENon 10-27-2024H. pylori Org specific cx Ql (Sara fld)NegativeNormalNEGProTexas Health Presbyterian Hospital Flower MoundComment on above:Performed By: #### [id number] #### [facility] ([id number]) [address] [place] [address], [address] [place], [place] [address]Surgical Pathologyon 97-75-8611Srhrqpag PathologyNormalOhioHealth Nelsonville Health CenterComment on above:Result Comment: [facility] [address] [place] [address] Surgical Pathology Consultation ADDENDUM ID Patient Name:HORACIO KEATING:1975 (Age: 49)Gender:FTaken:4Reported:4Physician(s):Cande Li MD ([phone])Copy To: Rec. #:[id number]: #[id number] Final Pathologic Diagnosis 1. Antrum biopsy: Mild [...] differential diagnosis would also include acute self-limited colitis/infectiouscolitis and drug associated colitis. Correlation with the clinical, endoscopic and other data is suggested. Report Electronically Signed Out gisel/11/05/2024Smith Clark MD Addendum ([facility]) Date Reported: 11/09/2024 In specimen part 1, immunohistochemistry (with appropriate controls) for Helicobacter pylori organisms is NEGATIVE. Electronically Signed Out Smith Clark MD Interpretation performed [place] [address], License number: [id number]. Clinical History Positive fecal occult blood Gross Description 1. Received in formalin labeled KEATING, antrum are two pink-julian soft tissue bits, 0.1 and 0.3 cm in greatest dimension. The specimens are filtered and submitted entirely in a single cassette. (1, ns, [id number], m8) YEISON 2. Received in formalin labeled KEATING, appendiceal are three pink-julian soft tissue bits and strips, 0.3, 0.3, and 0.6 cm in greatest dimension. The specimens are filtered and submitted entirely in a single cassette. (1, ns, [id number], m8) YEISON vaz/10/29/2024GR Specimen(s) Received 1: Antrum biopsy 2: Appendiceal orifice Fee Codes(s): 1; 59410, 67554 2; 356[address]Xvawqim [Mass/volume] in Serum or PlasmaOrdered By: Dedrick Fuller on 35-22-4109Rfkizrb [Mass/Vol]9.9 mg/dL8.6-10.3FKettering Health Greene Memorial Carbon dioxide, total [Moles/volume] in Serum or PlasmaOrdered By: Dedrick Fuller on 82-77-5111XX6 [Moles/Vol]26.6 mmol/L21.0-31.0[facility] Chloride [Moles/volume] in Serum or PlasmaOrdered By: Dedrick Fuller on 08-30-2024 Chloride [Moles/Vol]104 mmol/A21-522DmgcberqpMercy Health St. Vincent Medical CenterCholesterol [Mass/volume] in Serum or PlasmaOrdered By: Dedrick Fuller on 16-76-3392Xijbcihfgyg [Mass/Vol]218 mg/lQGnxz899-833AhlgulfrlMercy Health St. Vincent Medical CenterComment on above:Chol less than 200 mg/dl low riskChol 201-239 mg/dl borderline riskChol 240 mg/dl and greater high riskCholesterol in LDL Calc [Mass/Vol]Ordered By: Dedrick Fuller on 28-44-8288Fvcjyxnbhuz in LDL [Mass/Vol]134 mg/dLHigh0-100[facility]. Vincent Medical CenterComment on above:LDL ATP III CLASSIFICATIONLDL less than 100 mg/dL OptimalLDL 100-129 mg/dL Near or above piniqewUNT873-077 mg/dL Borderline highLDL 160-189 mg/dL HighLDL greater than 189 mg/dL Very high Cholesterol in VLDL Calc [Mass/Vol]Ordered By: Dedrick Fuller on 08-30-2024 Cholesterol in VLDL [Mass/Vol]46 mg/dLMercy Health St. Vincent [facility] Center Creatinine [Mass/volume] in Serum or PlasmaOrdered By: Dedrick Fuller on 08-30-2024 Creatinine [Mass/Vol]0.75 mg/dL0.60-1.20[facility] Medical CenterGlucose [Mass/volume] in Serum or PlasmaOrdered By: Dedrick Fuller on 74-05-4361Zzwxoym [Mass/Vol]95 mg/nE97-227FafzlywlfMercy Health St. Vincent Medical CenterComment on above:ADA recommended reference rangeRandom Glucose Reference Range is dependent on time and content of last meal. Glucose of more than 200 mg/dL in a nonstressed, ambulatory subject supports the diagnosisof Diabetes Mellitus.No Panel InformationOrdered By: Dedrick Fuller on 01-44-1934Llqyehyjc GFR (CKD-EPI)> 60.0 mL/MinMercy Health St. Vincent Medical CenterPharmacy Creatinine Clearance (ChemN/A [facility] Medical CenterPotassium [Moles/volume] in Serum or Plasma Ordered By: Dedrick Fuller on 44-70-0368Zboepbntv [Moles/Vol]4.1 mmol/L3.5-5.1 [facility] Medical Centererum or plasma anion gap determinationOrdered By: Dedrick Fuller on 33-55-6962Exwch gap [Moles/Vol]13.5 mmol/L6.0-15.0[facility] Medical Centererum or plasma high density lipoprotein (HDL) cholesterol measurementOrdered By: Dedrick Fuller on 28-88-1462Ihqhctmpqgn in HDL [Mass/Vol]38 mg/xF83-08ApocinndtMercy Health St. Vincent Medical CenterComment on above:HDL CHOL ATP-III CLASSIFICATION Cardiovascular RiskHDL > or equal to 60 mg/dL LOWHDL < 40 mg/dL HIGHSerum or plasma total cholesterol/high density lipoprotein (HDL) cholesterol mass ratOrdered By: Dedrick Fuller on 08-30-2024 Cholesterol.total/Cholesterol in HDL [Mass ratio]5.7 {ratio}<5.0[facility] Medical Centerodium [Moles/volume] in Serum or PlasmaOrdered By: Dedrick Fuller on 67-73-6097Mvytdc [Moles/Vol]140 mmol/K643-524UvkkvssrlMercy Health St. Vincent Medical CenterTriglyceride [Mass/volume] in Serum or PlasmaOrdered By: Dedrick Fuller on 80-56-2818Osakoazdwtus [Mass/Vol]231 mg/dLHigh0-149[facility]. Vincent Medical CenterComment on above:TRIG ATP III CLASSIFICATIONTRIG less than 150 mg/dL NormalTRIG 150-199 mg/dL Borderline highTRIG 200-500 mg/dL High TRIG greater than 500 mg/dL Very highStandard traceable to the Center for Disease Conrtrol and Prevention (CDC) test method.Urea nitrogen [Mass/volume] in Serum or Plasma Ordered By: Dedrick Fuller on 07-13-9608Deky nitrogen [Mass/Vol]18 mg/dL06-[address] [facility] Medical CenterCoding Summaryon 14-94-0717Nozhdj Summary HTMLBase 64 PuagbuivMKo9zVq+PGhlYWQ+RI4LZGHlB34dkYDmqA4xM2RPYJfFDnqrACDCQGkHLgUruqXgOD9xqSKt ZXJu [file] ZXI (more content not included)...[facility] HospitalAmbulance Noteon 87-35-2163Pjtyfbkxy [id number]#1.00OTGTIFFNoSelect Medical [facility] Urineon 03-17-2024 UrineUrine Culture ordered as a result of parameters set on specific urine dip and urine microsopic results. >100,000 cfu/ml Lactobacillus species Normal vaginal oleg isolated 10,000 cfu/ml Corynebacterium species (DIPTHEROID) No YOLANDE performed on this organism No pathogens isolatedNoGlenbeigh HospitalComment on above:Performed By: #### [id number], [id number], [id number] ####[facility] (DEFAULT)[address] [place] [address].Auto Diff 1on 63-88-1389Lzuq [place] %3 %Normal1-12 [facility] Hospital DaytonComment on above:Performed By: #### [id number], [id number], [id number], [id number], [id number], [id number], [id number] #### [facility] (DEFAULT) [address] [place] [address]Uwll Abs#0.1 b46Xiqdgy9.0-0.2MTrinity Health System Twin City Medical CenterComment on above:Performed By: #### [id number], [id number], [id number], [id number], [id number], [id number], [id number] #### [facility] (DEFAULT) [address] [place] [address]Pfoetehsy/100 WBC (Bld)0.7 %Normal0.2-2.0[facility] Comment on above:Performed By: #### [id number], [id number], [id number], [id number], [id number], [id number], [id number] #### [facility] (DEFAULT) [address] [place] [address]Wkb Abs#0.1 z56Hyotbv9.0-0.4[facility], Beachwood HospitalComment on above:Performed By: #### [id number], [id number], [id number], [id number], [id number], [id number], 8794754 #### [facility] (DEFAULT) [address] [place] [address]Tfwwelpeejv/100 WBC (Bld)0.7 %Low0.9-4.0[facility] Comment on above:Performed By: #### [id number], [id number], [id number], [id number], [id number], 6328375, 2275613 #### [facility] (DEFAULT) [address] [place] [address] 18013Cdnpd Abs#2.2 k33Vplhrm4.3-2.9[facility] DaytonComment on above:Performed By: #### [id number], 6698705228, 9624316210, 20677781, 8989392436, 6898605, 7262174 #### [facility] (DEFAULT) [address] [place] [address] 34223Qnivprfsozf/100 WBC (Bld)14 %Qegyxe53-98Vuntdpby Hospital Comment on above:Performed By: #### [id number], 1983191339, 1094827059, 02384789, 1056227554, 0280625, 8246458 #### [facility] [address] [place] [address] 28667Huxl Abs#0.5 b90Xxxglg4.0-0.8MaCrystal Clinic Orthopedic CenterComment on above:Performed By: #### [id number], 4265284165, 2534360549, 65384193, 4636370956, 7637416, 6966723 #### [facility] (DEFAULT) [address] [place] [address] 64903Erxm Abs#13.5 d29Qexh7.5-9.2M[facility] HospitalComment on above:Result Comment: Slide ReviewedPerformed By: #### [id number], 0519838850, 9060320802, 79669234, 0249739168, 8273843, 2441148 #### [facility] (DEFAULT) [address] [place] [address] 68171Hdtbpjdehqm/100 WBC (Bld)82 %Lrttzq30-58Zmkvpobn Hospital Comment on above:Performed By: #### [id number], 4477771308, 2437854783, 47893711, 5261501577, 6309476, 7510080 #### [facility] (DEFAULT) [address] [place] [address] 98270TMK w/ Auto Diffon 96-71-7622Eetsfyuqssh distribution width (RBC) [Ratio]13.3 %Ehpast31.5-15.0[facility] DaytonComment on above: Performed By: #### [id number], 7705494262, 2099786489, 94106712, 5570988394, 1468263, 4524950 #### [facility] (DEFAULT) [address] [place] [address] 48592Lxckhxizee (Bld) [Volume fraction]45.0 %High33.7-40.4 [facility] DaytonComment on above:Performed By: #### 5324063025, 1734955505, 2483848604, 56851840, 4526392982, 2079709, 6381644 #### [facility] (DEFAULT) [address] [place] [address] 87402Wrzwwtxula (Bld) [Mass/Vol]15.0 g/kZCjhozp84.3-15.9 [facility] DaytonComment on above:Performed By: #### [id number], 4362283694, 3635096828, 49664816, 2041739709, 5312979, 7945722 #### [facility] (DEFAULT) [address] [place], [place] [address]Man Diff?AutoInvalid Interpretation CodeKindred Hospital Dayton Comment on above:Performed By: #### [id number], 6861385317, 4474741204, 30531253, 7529783385, 1102215, 4856895 #### [facility] (DEFAULT) [address] [place] [address] (RBC) [Entitic mass]32 esWewkot81-52Uwrqnrwv Hospital Comment on above:Performed By: #### 5599174076, 9223440433, 1558306689, 94606215, 0223399262, 9355623, 8813690 #### [facility] (DEFAULT) [address] [place], [place] [address]HC (RBC) [Mass/Vol]33 g/lVZpftxu51-76Jgpbudmc Hospital Comment on above:Performed By: #### 6877121445, 3277738315, 9197510399, 28746763, 6455229006, 7136001, 8562782 #### [facility] (DEFAULT) [address] [place] [address] 66401ACY (RBC) [Entitic vol]95 vXJptjbq53-621Ryclndvm Hospital Comment on above:Performed By: #### 7189936085, 7632730728, 0497610466, 47440912, 9193966537, 3633852, 3731673 #### [facility] (DEFAULT) [address] [place] [address] 81105Unuwssqv749 d26Xnvgll073-132Rsaztiaa HospitalComment on above:Performed By: #### 6366201885, 4892399231, 0320175691, 20276413, 9321192093, 3357916, 2498427 #### [facility] (DEFAULT) [address] [place] [address] 83571Ephuubjw mean volume (Bld) [Entitic vol]8.7 fLNormal 6.3-10.2MTrinity Health System Twin City Medical CenterComment on above:Performed By: #### 1170659475, 6957337499, 9816475016, 98192354, 7358197055, 3533186, 8244318 #### [facility] (DEFAULT) [address] [place] [address] 62883ANI1.74 p31Mjtjgb4.70-5.30[facility] Hospital DaytonComment on above:Performed By: #### [id number], 8738264593, 1957279185, 62031281, 7079866312, 6991838, 0921855 #### [facility] (DEFAULT) [address] [place] [address] 72877TRT56.4 j37Prnv0.5-10.5[facility] Hospital DaytonComment on above: Performed By: #### 1192799351, 2890242262, 8111043853, 17258659, 2981466058, 2566544, 7123336 #### [facility] (DEFAULT) [address] [place] [address] 88602ZBH Standardon 28-66-2289tJUI Non AA>60Invalid Interpretation [facility] HospitalComment on above:Performed By: #### [id number], 7744601489, 3349842666, 32967565, 3739264885, 3033353, 8382851 #### [facility] (DEFAULT) [address] [place] [address] 97429uIUS AA>60Invalid Interpretation [facility] Comment on above:Performed By: #### 5284961755, 5006866607, 7002973248, 65080107, 3228752536, 2454060, 8686810 #### [facility] (DEFAULT) [address] [place] [address] 70186Yxowjpt [Mass/Vol]4.1 g/dLNormal3.5-5.0[facility] Comment on above:Performed By: #### 8159183834, 6586441226, 0992845764, 33174351, 0880501504, 8403431, 1907307 #### [facility] (DEFAULT) [address] [place] [address] 93277Iiiuxla/Globulin [Mass ratio]1.3 {ratio}Low1.4-2.6M[facility] HospitalComment on above:Performed By: #### 5898075861, 6147765903, 0032280753, 40921991, 2540190514, 6036999, 3991913 #### [facility] (DEFAULT) [address] [place] [address] 89699Bvc Phos39 IU/BEzppdz15-57Mgerojpi HospitalComment on above:Performed By: #### 6753549083, 4312885689, 9608348416, 96155617, 0272800664, 3120419, 3928104 #### [facility] (DEFAULT) [address] [place] [address] 97539GNX [Catalytic activity/Vol]32.0 U/JNxfkwg22.0-54.0 [facility] HospitalComment on above:Performed By: #### [id number], 7743168976, 0499233872, 84203168, 2526399901, 3603242, 6024896 #### [facility] (DEFAULT) [address] [place] [address] 35841Eramf gap [Moles/Vol]13.0 mmol/LNormal5.0-19.0[facility] HospitalComment on above:Performed By: #### [id number], 1518058538, 1213938196, 55945561, 5996479416, 2850154, 5658795 #### [facility] (DEFAULT) [address] [place] [address] 53830DTI [Catalytic activity/Vol]25 U/ZUisxub61-79Oqvyukwt HospitalComment on above:Performed By: #### 8260526763, 7667981347, 9795838905, 76081592, 7614207994, 2715400, 8610357 #### [facility] (DEFAULT) [address] [place] [address] 12482Vmzv Total1.4 mg/dLHigh0.3-1.2M[facility] HospitalComment on above:Performed By: #### 9693637029, 2038278883, 7680263561, 39390017, 3548026770, 1459300, 8683760 #### [facility] (DEFAULT) [address] [place] [address] 78850Svqwftt [Mass/Vol]8.8 mg/dLLow8.9-10.3MTr[facility] Comment on above:Performed By: #### 5267746549, 0848416929, 1734762366, 81960465, 3962543005, 8461571, 6885885 #### [facility] (DEFAULT) [address] [place] [address] 41705Ispptxaq [Moles/Vol]105 mmol/KBvgefq581-405Sezndveu HospitalComment on above:Performed By: #### 6874137301, 1730669351, 5432158834, 83986325, 4338471000, 7508647, 7608829 #### [facility] (DEFAULT[facility] [address] [place] [address] 31508WB3 [Moles/Vol]24 mmol/MUfakob85-56Zkmkwctx Hospital Comment on above:Performed By: #### 7228391805, 8503661316, 7162823221, 55202826, 9778087831, 9399905, 8965707 #### [facility] (DEFAULT) [address] [place] [address] 71732Qfwhwwtvfv [Mass/Vol]0.72 mg/dLNormal0.60-1.30[facility] DaytonComment on above:Performed By: #### 1784747336, 1577278906, 1333303220, 79083294, 1281049584, 5281573, 1144859 #### [facility] (DEFAULT) [address] [place] [address] 81728Spxuerkl (S) [Mass/Vol]3.0 g/dLNormal1.5-4.3M[facility] HospitalComment on above:Performed By: #### 3677826578, 9816974368, 5223046650, 56851609, 6758514382, 4990651, 8038337 #### [facility] (DEFAULT) [address] [place] [address] 99043Vyjofuf [Mass/Vol]124.0 mg/eKAwae08.0-118.0[facility] HospitalComment on above:Performed By: #### 4775452708, 2298944020, 6235972341, 56129527, 2138528994, 1525870, 9850192 #### [facility] (DEFAULT) [address] [place] [address] 41213Nvcsjdvjnh453 mOsm/LInvalid Interpretation CodeSelect [facility] HospitalComment on above:Performed By: #### [id number], 2761321178, 9759961728, 06047847, 3337762090, 3892175, 6732829 #### [facility] (DEFAULT) [address] [place] [address] 53153Pltbbiocy [Moles/Vol]4.0 mmol/LNormal3.6-5.1M[facility] HospitalComment on above:Performed By: #### 1496519992, 4284289526, 3931296244, 83172278, 6611607441, 8177263, 4684098 #### [facility] (DEFAULT) [address] [place] [address] 35838Zubbejf [Mass/Vol]7.1 g/dLNormal6.5-8.1[facility] Hospital Comment on above:Performed By: #### 5541304214, 9125901332, 4445393591, 97125749, 5576166093, 5723415, 2338583 #### [facility] (DEFAULT) [address] [place] [address] 28040Sksqyd [Moles/Vol]138.0 mmol/PPteqxz325.0-144.0[facility] Hospital DaytonComment on above:Performed By: #### [id number], 7628362147, 0374027298, 20758640, 8889479856, 9013483, 3917273 #### [facility] (DEFAULT) [address] [place] [address] 13810Vhgi nitrogen [Mass/Vol]15 mg/dLNormal8-26Magruder HospitalComment on above:Performed By: #### [id number], 7719726967, 8840576774, 34806633, 7538063445, 9884617, 9916848 #### [facility] (DEFAULT) [address] [place] [address] 53579Hony nitrogen/Creatinine [Mass ratio]20.8 mg/mgHigh 4.6-16.2MTrinity Health System Twin City Medical CenterComment on above:Performed By: #### [id number], 0276638772, 0079686030, 31889900, 0507091289, 2873042, 3514418 #### [facility] (DEFAULT) [address] [place] [address] 80783Eifcnfmhvb ChemWyandot Memorial HospitalComment on above:Performed By: #### [id number], 5269591242, 1162843058, 71291888, 2971849156, 8985042, 0078632 #### [facility] (DEFAULT) [address] [place] [address] 27495XD Clinical Summaryon [id number] Clinical Summary [facility] Emergency Department [address] [place] [address]28 ED Clinical Summary PERSON INFORMATION Name: HORACIO KEATING Age: 48 Years Sex: FEMALE : 1975 MRN: Acct#: Visit Reason: Shortness of breath; Anxiety; Blood pressure check; SOB Arrival: 03/15/2024 17:56:51 Discharge: 03/15/2024 20:31:00 LOS: 000 02:35 Check In: 03/15/2024 17:56:51 Checkout:03/15/2024 20:31:00 Address: [address] [place] [address] PCP: SAMI MCCARTY PROVIDER INFORMATION Provider Role Assigned Unassigned Nicola Neff DO ED Provider 03/15/2024 18:07:25 Solange RN, Shanika Lawton ED Nurse 03/15/2024 18:08:57 Joanna Angeles SIDE DOOR MAN Nurse 03/15/2024 19:24:01 VITALS INFORMATION Vital Sign [...] has been under tremendous amount of stress recently.Working 16 hours a day 2 jobs and [...] available . Physical Exa (more content not included)...[facility] - Physicianon 98-97-1093YO Note - PhysicianPatient: HORACIO KEATING Age: 48 years Sex: FEMALE [...] has been under tremendous amount of stress recently.Working 16 hours a day 2 jobs and [...] Lymphatics: No lymphadenopathy. Psychiatric: (more content not included)...[facility] HospitalED Note-Nursingon 49-65-8586RH Note-NursingPatient presents to the ER via [facility] for shortness of breath, anxiety. Patient was at work and stated that she all of a sudden began to feel overwhelmed, short of breath, she sat down and couldnot catch her breath. Was tingling around her [...] cannula. 12 lead was regular in rate [facility] Patient Summaryon [id number] Patient [facility] - Emergency Department [address] [place] [address] PATIENT DISCHARGE INSTRUCTIONS Patient Information Name: HORACIO KEATING Age: 48 Years Date of : 1975 Reason For Visit: Shortness of breath; Anxiety; Blood pressure check; SOB Arrival Time: 03/15/2024 17:56:51 Primary Care Physician: SAMI MCCARTY Attending Physician: Nicola Neff DO Comment: Visit Diagnosis: Diagnoses This Visit Anxiety ([id number]) Blood pressure check ([id number]) Hypertension (I10) Panic attack (F41.0) Shortness of breath ([id number]) Urinary tract infection (N39.0) The Pharmacy at [facility] is open Friday through Friday from 9A to 6P and Friday and Friday from 9A to 5P Prescription Information: If you have been given a prescription for narcotics, seek immediate medical attention if you have any difficulty breathing or any sudden status changes such as confusion andsleepiness. If you or anyone you know is experiencing suicidal thoughts, mental health, alcohol and/or drug addiction problems; contact the [facility] 23/06 Crisis Hotline -Text 4HIMH su 155543. If you received any narcotics, sedation, or [...] legal documents With: Address: When: SAMI MCCARTY [address] [place], [place] [id number] Business (1) Within 3 to 5 days Comments: Call for follow up appointment Return if symptoms worsen Medication Information: The exam and treatment you received today in the [facility] Emergency Department were for an urgent problem and are not intended as complete care. It is important for you to follow up with a doctor, nurse practitioner, or physician?s surgery assistant for ongoing care. If your symptoms become worse or you donot improve as expected and you are unable [...] so we can reach you if necessary. [facility] has provided you with a complete list of medications post discharge. Please inform your ecosystem ecology professor/provider of your visit and for further instruction [...] 5 days if symptoms have not resolved. Refills:0. Additional medications on your home medication list [...] Vital Signs: Vitals an (more content not included)...NormalSelect [facility] HospitalExtra Greenon 95-02-1572Kgzz CollectedYesInvalid Interpretation CodeSelect [facility] HospitalComment on above:Performed By: #### [id number], 0994340696, 7311853471, 68841539, 2968492300, 1030206, 9685759 #### [facility] (DEFAULT) [address] [place] [address] 52729Fcpdr Redon 57-31-8194Ddvx CollectedYesInvalid Interpretation CodeSelect [facility] HospitalComment on above:Performed By: #### [id number], 4455363085, 0166450847, 84731415, 3965162832, 8504080, 0804377 #### [facility] (DEFAULT) [address] [place] [address] 54886GLhv 51-00-0449FII Coag (PPP) [Relative time]0.94 {INR} Normal0.91-1.11[facility] HospitalComment on above:Performed By: #### [id number], 7030598962, 4862098842, 48790275, 3174959127, 7718692, 9977573 #### [facility] (DEFAULT) [address] [place] [address] 04825VL0.8 second(s)Normal9.7-11.8[facility] HospitalComment on above:Performed By: #### [id number], 9062237727, 7930292360, 36106661, 3817376720, 8303778, 1022776 #### [facility] (DEFAULT) [address] [place] [address] 91943KaO HSon 43-08-9882Xyyxffhj I High Sensitivity7.7 pg/mL Normal<=15.0[facility] HospitalComment on above:Performed By: #### [id number], 9187204319, 4694366007, 05763526, 7132564717, 4932027, 7348261 #### [facility] (DEFAULT) [address] [place] [address] 77640WJ Wnvqa4jf 22-94-9082CC Amorph.1+[facility] Comment on above:Order Comment: Urinalysis Microscopic order added on by Discern Expert Rules system.Performed By: #### [id number], 0851954349, 9879283 ####[facility] (DEFAULT)[address] [place] [address] 82627BE Bacteria3+NormalSelect Medical [facility] HospitalComment on above:Order Comment: Urinalysis Microscopic order added on by Discern Expert Rules system.Performed By: #### [id number], 6555180586, 2895068 ####[facility] (DEFAULT)[address] [place] [address] Mucous1+NormalSelect [facility] HospitalComment on above: Order Comment: Urinalysis Microscopic order added on by [employer] ([employer]) Expert Rules system.Performed By: #### [id number], 8053744594, 7568895 ####[facility] (DEFAULT)[address] [place] [address] RBC3-5[facility] Comment on above:Order Comment: Urinalysis Microscopic order added on by [employer] ([employer] Expert Rules system.Performed By: #### [id number], 2624304163, 2243751 ####[facility] (DEFAULT)[address] [place] [address] 41366SO Renal EpiRareNParkview Health Montpelier HospitalComment on above:Order Comment: Urinalysis Microscopic order added on by [employer] ([employer]) Expert Rules system.Performed By: #### [id number], 4705185357, 1439056 ####[facility] (DEFAULT)[address] [place] [address] 50717GV Squam EpiManyNormalSelect [facility] HospitalComment on above:Order Comment: Urinalysis Microscopic order added on by [employer] ([employer]) Expert Rules system.Performed By: #### [id number], 0658750360, 2878511 ####[facility] (DEFAULT)[address] [place] [address] 75561GG WBC3-5NormDiley Ridge Medical Center HospitalComment on above:Order Comment: Urinalysis Microscopic order added on by Discern Expert Rules system.Performed By: #### [id number], 0309589186, 0578368 ####[facility] (DEFAULT)[address] [place] [address] 21441QI w Culture if Ind Standardon 67-43-0982Jduaxjrhap UAWyandot Memorial Hospital Comment on above:Performed By: #### [id number], 2511338329, 6911847 ####[facility] (DEFAULT)[address] [place] [address] 73869Vpywd (U)YellowNormal [facility] DaytonComment on above:Performed By: #### 37500890, 6560519771, 9884432 ####[facility] (DEFAULT)[address] [place] [address] 25459 Culture?IndicatedInvalid Interpretation [facility] HospitalComment on above: Result Comment: Result created by rule GL_MAGR_ADD_UA_CULT Result created by rule GL_MAGR_ADD_UA_CULT Result created by rule GL_MAGR_ADD_UA_CULT1 Result created by rule GL_MAGR_ADD_UA_CULTPerformed By: #### [id number], 2089836872, 6905843 ####[facility] (DEFAULT)[address] [place] [address] 60573 Glucose (U) [Mass/Vol]NegativeWyandot Memorial HospitalComment on above:Performed By: #### 97336638, 2827782579, 4355714 ####[facility] (DEFAULT)[address] [place] [address] 06193Avadqhp Ql (U)NegativeWyandot Memorial Hospital Comment on above:Performed By: #### [id number], 9775995740, 5552405 ####[facility] (DEFAULT)[address] [place] [address] 31353Mapvw?IndicatedInvalid Interpretation [facility] HospitalComment on above:Result Comment: Result created by rule GL_MAGR_ADD_UA_MICROPerformed By: #### [id number], 9505508989, 8544966 ####[facility] (DEFAULT)[address] [place] [address] 34679AY BilirubinNegativeNormalOkgruder HospitalComment on above:Performed By: #### [id number], 4115329630, 4186812 ####[facility] (DEFAULT)[address] [place] [address] 96114ZL BloodTRACEAbnormalNEGATIVESelect Medical [facility] Hospital Comment on above:Performed By: #### [id number], 6164926496, 9467384 ####[facility] (DEFAULT)[address] [place] [address] 67887NM ClaritySL CLOUDY AbnormalCLEARMagraultman orrville hospital HospitalComment on above:Performed By: #### [id number], 5613025062, 2869308 ####[facility] (DEFAULT)[address] [place] [address] 30140SY Leuk EstLARGEAbnormalNEGATIVESelect Medical [facility] HospitalComment on above:Performed By: #### [id number], 5398688975, 9237052 ####[facility] (DEFAULT)[address] [place] [address] 48239SY NitriteNegativeNormalNEGATIVE [facility] HospitalComment on above:Performed By: #### [id number], 9085445813, 1423202 ####[facility] (DEFAULT)[address] [place] [address] 33759BS pH6.0Fgaszb7-2Jpnzhygc HospitalComment on above:Performed By: #### [id number], 1665395120, 0716506 ####[facility] (DEFAULT)[address] [place] [address] 69715VE ProteinNegativeNormalNEGATIVEOkgraultman orrville hospital HospitalComment on above:Performed By: #### [id number], 2673783685, 4253083 ####[facility] (DEFAULT)[address] [place] [address] 35462VT Spec Grav1.015Normal 1.001-1.035Magruder HospitalComment on above:Performed By: #### [id number], 3462346347, 2052603 ####[facility] (DEFAULT)[address] [place], [place] [address] Urobilinogen0.2 mg/dLNormal0.2-1.0[facility] Hospital DaytonComment on above:Performed By: #### [id number], [id number] ####[facility] (DEFAULT)[address] [place], [place] [address]Oqegv SourceClean CatchNormal [facility] DaytonComment on above:Performed By: #### [id number], [id number], [id number] ####[facility] (DEFAULT)[address] [place], [place] [address]YZ Chest 1 View Frontalon [id number] Chest 1 View FrontalCXR HISTORY: Chronic spine pain and hand pain. [...] Kayleigh Fu MD 03/15/24 7:34 pm Technologist: GODFREYJANEParkview Health Montpelier HospitalCalcium [Mass/volume] in Serum or PlasmaOrdered By: Dedrick Fuller on [id number] [Mass/Vol]9.1 mg/dL8.6-10.[address] [facility] Medical CenterCarbon dioxide, total [Moles/volume] in Serum or PlasmaOrdered By: Dedrick Fuller on [id number] [Moles/Vol]26.7 mmol/L21.0-31.[address] [facility] Medical CenterChloride [Moles/volume] in Serum or Plasma Ordered By: Dedrick Fuller on [id number] [Moles/Vol]107 mmol/L98-[address] [facility] Medical CenterCholesterol [Mass/volume] in Serum or Plasma Ordered By: Dedrick Fuller on 36-73-8189Uvrupbtjmow [Mass/Vol]166 mg/uA421-[address] [facility] CenterComment on above:Chol less than 200 mg/dl low riskChol 201-239 mg/dl borderline riskChol 240 mg/dl and greater high risk Cholesterol in LDL Calc [Mass/Vol]Ordered By: Dedrick Fuller on 08-15-2023 Cholesterol in LDL [Mass/Vol]95 mg/dL0-100[facility] Comment on above:LDL ATP III CLASSIFICATIONLDL less than 100 mg/dL OptimalLDL 100-129 mg/dL Near or above kztqrpkJCI749-801 mg/dL Borderline highLDL 160-189 mg/dL HighLDL greater than 189 mg/dL Very highCholesterol in VLDL Calc [Mass/Vol]Ordered By: Dedrick Fuller on 47-40-0903Ssmangbftns in VLDL [Mass/Vol]32 mg/dLMercy Health St. Vincent Medical CenterCreatinine [Mass/volume] in Serum or PlasmaOrdered By: Dedrick Fuller on 70-68-5433Asbxcfbyog [Mass/Vol]0.77 mg/dL 0.60-1.20[facility] Medical CenterGlucose [Mass/volume] in Serum or PlasmaOrdered By: Dedrick Fuller on 70-61-6283Dtqyohh [Mass/Vol]97 mg/fB56-[address] [facility] CenterComment on above:ADA recommended reference rangeRandom Glucose Reference Range is dependent on time and content of last meal. Glucose of more than 200 mg/dL in a nonstressed, ambulatory subject supports the diagnosisof Diabetes Mellitus.No Panel InformationOrdered By: Dedrick Fuller on 24-11-3028Wqobxcfys GFR (CKD-EPI)> 60.0 mL/MinMercy Health St. Vincent Medical CenterPharmacy Creatinine Clearance (ChemN/Kettering HealthPotassium [Moles/volume] in Serum or PlasmaOrdered By: Dedrick Fuller on 78-22-2807Xrwzwpnmy [Moles/Vol]4.0 mmol/L3.5-5.1FMorrow County Hospitalerum or plasma anion gap determinationOrdered By: Dedrick Fuller on 20-42-0742Jlxmw gap [Moles/Vol]10.3 mmol/L6.0-15.0[facility] Centererum or plasma high density lipoprotein (HDL) cholesterol measurement Ordered By: Dedrick Fuller on 56-93-0563Ewwquntenkv in HDL [Mass/Vol]39 mg/dL23-[address] [facility] CenterComment on above:HDL CHOL ATP-III CLASSIFICATION Cardiovascular RiskHDL > or equal to 60 mg/dL LOWHDL < 40 mg/dL HIGHSerum or plasma total cholesterol/high density lipoprotein (HDL) cholesterol mass ratOrdered By: Dedrick Fuller on 54-75-6070Mtdxbjcnpzv.total/Cholesterol in HDL [Mass ratio]4.3 {ratio}<5.0[facility] Medical Centerodium [Moles/volume] in Serum or PlasmaOrdered By: Dedrick Fuller on 96-57-9899Bifiei [Moles/Vol]140 mmol/Q970-077GfxsutmpfMercy Health St. Vincent Medical CenterTriglyceride [Mass/volume] in Serum or PlasmaOrdered By: Dedrick Fuller on 19-56-6681Dxbffjyejozg [Mass/Vol]162 mg/dL0-149[facility] CenterComment on above:TRIG ATP III CLASSIFICATIONTRIG less than 150 mg/dL NormalTRIG 150-199 mg/dL Borderline highTRIG 200-500 mg/dL High TRIG greater than 500 mg/dL Very highStandard traceable to the Center for Disease Conrtrol and Prevention (CDC) test method.Urea nitrogen [Mass/volume] in Serum or PlasmaOrdered By: Dedrick Fuller on 91-99-4063Mljm nitrogen [Mass/Vol]10 mg/dL7-25[facility] CenterGTT 2 HRon 03-82-4612Uycrfch [Mass/Vol]107 mg/dLCritically lana37-843UxaDunlap Memorial HospitalComment on above:Performed By: #### URIC, CRP #### [facility] [address] [address] [address] Soo DonnellyGlucose [Mass/Vol]152 mg/dLSycamore Medical CenterComment on above:Performed By: #### URIC, CRP #### [facility] [address] [address] [address] Soo DonnellyGlucose [Mass/Vol]121 mg/dLSycamore Medical CenterComment on above:Performed By: #### URIC, CRP #### [facility] [address] [address] [address] Soo DonnellyCT ABD/PELV W CONon 21-26-7597XG ABD/PELV W CONEXAMINATION: CT ABD/PELV W CON HISTORY: Abdominal pain [...] authenticated by: LUZ ELENA SAUCEDA Date: 2022-10-01 10:31[facility] AUTO DIFFon 08-65-9211ODNJ #0.0 103/ulNormal0.0-0.1The [facility] CampusComment on above:Performed By: #### ANAD #### [facility] [address] [address] [address] Soo DonnellyBasophils/100 WBC (Bld)0.4 %Normal0.2-2.0The [facility] Comment on above:Performed By: #### ANAD #### [facility] [address] [place] [address] Dr. Soo Reed #0.1 103/ulNormal0.0-0.7The [facility] CampusComment on above: Performed By: #### ANAD #### [facility] [address] [place] [address] Dr. Soo Joynerosinophils/100 WBC (Bld)1.8 %Normal0.9-7.0The [facility] Comment on above:Performed By: #### ANAD #### [facility] [address] [place] [address] Dr. Soo Joynerrythrocyte distribution width (RBC) [Ratio]11.9 %Idhpyz70.0-15.0 The [facility] CampusComment on above:Performed By: #### ANAD #### [facility] [address] [place] [address] Dr. Soo DonnellyHematocrit (Bld) [Volume fraction]43.9 %Jvwntp55.0-48.0The [facility] CampusComment on above:Performed By: #### ANAD #### [facility] [address] [place] [address] Dr. Soo DonnellyHemoglobin (Bld) [Mass/Vol]14.6 g/wSBkznna48.0-16.0The [facility] CampusComment on above:Performed By: #### ANAD #### [facility] [address] [place] [address] Dr. Soo Gould #0.01 10e3/ulNormal0.00-0.03The [facility] CampusComment on above:Performed By: #### ANAD #### [facility] [address] [place] [address] Dr. Soo Gould %0.1 %Normal0.0-0.5The [facility] CampusComment on above: Performed By: #### ANAD #### [facility] [address] [address] [address] Soo Carmichael #2.7 103/ulNormal1.2-3.8The [facility] CampusComment on above:Performed By: #### ANAD #### [facility] [address] [place] [address] Dr. Soo Huangmphocytes/100 WBC (Bld)39.9 %Dfaftt30.5-60.0The [facility] CampusComment on above:Performed By: #### ANAD #### [facility] [address] [place] [address] Dr. Soo FernándezUAL DIFF REQNONormalThe [facility] CampusComment on above: Performed By: #### ANAD #### [facility] [address] [place] [address] Dr. Soo Lott (RBC) [Entitic mass]31.7 rkNifiek43.7-34.0The [facility] CampusComment on above:Performed By: #### ANAD #### [facility] [address] [place] [address] Dr. Soo Lott (RBC) [Mass/Vol]33.3 g/dFOeibij09.9-35.2The [facility] CampusComment on above:Performed By: #### ANAD #### [facility] [address] [place] [address] Dr. Soo Lott (RBC) [Entitic vol]95.4 nVPexsez43.0-99.0The [facility] CampusComment on above:Performed By: #### ANAD #### [facility] [address] [place] [address] Dr. Soo Solis #0.4 103/ulNormal0.3-0.8The [facility] CampusComment on above:Performed By: #### ANAD #### [facility] [address] [place] [address] Dr. Soo Boyerocytes/100 WBC (Bld)5.9 %Normal1.7-12.0The [facility] Comment on above:Performed By: #### ANAD #### [facility] [address] [place] [address] Dr. Soo Burk #3.5 103/ulNormal1.4-6.5The [facility] CampusComment on above:Performed By: #### ANAD #### [facility] [address] [place] [address] Dr. Soo Sandovalutrophils/100 WBC (Bld)51.9 %Spxqcg56.0-75.0The [facility]ullinger HospitalComment on above:Performed By: #### ANAD #### [facility] [address] [place] [address] Dr. Soo Saezlet mean volume (Bld) [Entitic vol]10.8 fLNormal9.5-13.5The [facility] CampusComment on above:Performed By: #### ANAD #### [facility] [address] [place] [address] Dr. Soo LewisT220 103/tuIqkrjl397-633Ulh [facility] CampusComment on above: Performed By: #### ANAD #### [facility] [address] [place] [address] Dr. Soo DonnellyRBC4.60 106/ulNormal4.20-5.40The [facility] CampusComment on above:Performed By: #### ANAD #### [facility] [address] [place] [address] Dr. Soo DonnellyWBC6.8 103/ulNormal4.0-11.0The [facility] CampusComment on above: Performed By: #### ANAD #### [facility] [address] [place] [address] Dr. Vann ChangER URINE PROFILEon 36-97-1903Rjimhfoia Ql (U)NegativeNormal NEGATIVEThe [facility] CampusComment on above:Performed By: #### URIC, CRP #### [facility] [address] [place] [address] Dr. Soo DonnellyClarity (U)CLEARNormalCLEARThe [facility] CampusComment on above: Performed By: #### URIC, CRP #### [facility] [address] [address] [address] Soo Ramirez (U)LT. YELLOWNormalYELLOWDunlap Memorial HospitalComment on above:Performed By: #### URIC, CRP #### [facility] [address] [place] [address] Dr. Soo Pack micrscopic examination will be performed if indicated. NormalThe Zullinger HospitalComment on above:Performed By: #### URIC, CRP #### [facility] [address] [place] [address] Dr. Soo DonnellyGlucose Ql (U)NegativeNormalNEGATIVEDunlap Memorial HospitalComment on above:Performed By: #### URIC, CRP #### [facility] [address] [place] [address] Dr. Soo DonnellyHemoglobin Ql (U)NegativeNormalNEGATIVEVan [facility] on above:Performed By: #### URIC, CRP #### [facility] [address] [place] [address] Dr. Soo Reardonones Ql (U)NegativeNormalNEGATIVEDunlap Memorial HospitalComment on above:Performed By: #### URIC, CRP #### [facility] [address] [place] [address] Dr. Soo DonnellyLEUKOCYTESNegativeNormalNEGATIVEDunlap Memorial HospitalComment on above:Performed By: #### URIC, CRP #### [facility] [address] [place] [address] Dr. Soo DonnellyNitrite Ql (U)NegativeNormalNEGATIVEDunlap Memorial HospitalComment on above:Performed By: #### URIC, CRP #### [facility] [address] [place] [address] Dr. Soo DonnellypH (U)6.0 [pH]Normal5-9Dunlap Memorial HospitalComment on above: Performed By: #### URIC, CRP #### [facility] [address] [place] [address] Dr. Soo DonnellySPEC GRAVITY1.679Wnmdmu6.005-<=1.025The [facility] CampusComment on above:Performed By: #### URIC, CRP #### [facility] [address] [place] [address] Dr. Soo Murillo PROTEINNegativeNormalNEGATIVE/ TRACEThe [facility] Comment on above:Performed By: #### URIC, CRP #### [facility] [address] [place] [address] Dr. Soo Mccarthy MICRO INDNOT INDICATEDNormalThe [facility] CampusComment on above:Performed By: #### URIC, CRP #### [facility] [address] [place] [address] Dr. Soo Delucabilinogen Qn (U)0.2 {Roma'U}/dLNormal0.2 - 1.0The [facility] CampusComment on above:Performed By: #### URIC, CRP #### [facility] [address] [place] [address] Dr. Soo NavaF CHEM 8 (BAS METB)on 37-15-0987Czxoj gap [Moles/Vol]10.2 mmol/LNormalDunlap Memorial HospitalComment on above:Performed By: #### BMP #### [facility] [address] [place] [address] Dr. Soo DonnellyCalcium [Mass/Vol]8.7 mg/dLNormal8.5-10.1[facility] Comment on above:Performed By: #### BMP #### [facility] [address] [place] [address] Dr. Soo DonnellyChloride [Moles/Vol]103 mmol/GMofyni09-819Vki [facility] Comment on above:Performed By: #### BMP #### [facility] [address] [place] [address] Dr. Soo DonnellyCO2 [Moles/Vol]27.9 mmol/ZEmeebp68.0-32.0[facility] Comment on above:Performed By: #### BMP #### [facility] [address] [place] [address] Dr. Soo DonnellyCreatinine [Mass/Vol]0.80 mg/dLNormal0.55-1.02The [facility] CampusComment on above:Performed By: #### BMP #### [facility] [address] [place] [address] Dr. Soo JoynerGFR-AF INDONESIAN>60Normal>=60The [facility] CampusComment on above:Performed By: #### BMP #### [facility] [address] [place] [address] Dr. Soo JoynerGFR-NON AF INDONESIAN>60Normal>=60The [facility] CampusComment on above:Performed By: #### BMP #### [facility] [address] [place] [address] Dr. Soo DonnellyGlucose [Mass/Vol]103 mg/oDXigscm99-964Qyr [facility] Comment on above:Performed By: #### BMP #### [facility] [address] [place] [address] Dr. Soo DonnellyPotassium [Moles/Vol]4.1 mmol/LNormal3.5-5.1The [facility] Comment on above:Performed By: #### BMP #### [facility] [address] [place] [address] Dr. Soo DonnellySodium [Moles/Vol]137 mmol/CCnoxbp712-407TgeDunlap Memorial Hospital Comment on above:Performed By: #### BMP #### [facility] [address] [place] [address] Dr. Soo DonnellyUrea nitrogen [Mass/Vol]11.0 mg/dLNormal7.0-18.0The [facility] CampusComment on above:Performed By: #### BMP #### [facility] [address] [place] [address] Dr. Soo DonnellyUrea nitrogen/Creatinine [Mass ratio]13.8 mg/mgNormalThe [facility] CampusComment on above:Performed By: #### BMP #### [facility] [address] [place] [address] Dr. Soo DonnellyXR KUB 1 VIEWon 50-18-0663AD KUB 1 VIEWEXAMINATION: XR KUB 1 VIEW HISTORY: Pain ; [...] authenticated by: LUZ ELENA SAUCEDA Date: 2022-09-18 12:12[facility] CenterMG MAMM SCREEN 3D DEAN CADon 31-90-8002UZ MAMM SCREEN 3D DEAN CAD Patient: HORACIO KEATING Exam Date: 09/12/2022 : 1975 Gender:F Ordering : DR DELGADO MURILLO . Admission #: [id number] Family : Order #: [id number] CLICK HERE TO VIEW EXAM RADIOLOGY REPORT [...] ovarian cancer at age 77. LOCATION: [facility] BREAST COMPOSITION: Scattered areas fibroglandular density. FINDINGS: [...] by: Abigail Gonsalves MD on 09/13/2022 at 07:46[facility] INSULINon 88-90-0183Kljwdqv28.5 uIU/mLCritically high2.6-24.9The [facility] CampusComment on above:Performed By: #### URIC, CRP #### [facility] [address] [place] [address] Dr. Soo Varghese LABCORPon 38-70-4315U3 [Mass/Vol]7.4 ug/dLNormal4.5-12.0The [facility] Centerment on above:Performed By: #### ANAD #### [facility] [address] [place] [address] Dr. Soo Mohr W MANUAL DIFFon 14-40-5537GVCAEDGG LYMPH #NormalDunlap Memorial HospitalComment on above:Performed By: #### BUN, CREA #### [facility] [address] [place] [address] Dr. Soo YatesYPICAL LYMPH %NormalDunlap Memorial HospitalComment on above: Performed By: #### BUN, CREA #### [facility] [address] [place] [address] Dr. Soo Mendez #Normal0.0-0.3The [facility] CampusComment on above: Performed By: #### BUN, CREA #### [facility] [address] [place] [address] Dr. Soo Mendez %Normal0-5The [facility] Medical Centerment on above:Performed By: #### BUN, CREA #### [facility] [address] [place] [address] Dr. Soo Harris #0.00 103/ulNormal0.00-0.10The [facility] CampusComment on above:Performed By: #### BUN, CREA #### [facility] [address] [place] [address] Dr. Soo Harris %0.0 %Critically low0.2-2.0The [facility] CampusComment on above:Performed By: #### BUN, CREA #### [facility] [address] [place] [address] Dr. Soo Silva #NormalThe [facility]ullinger HospitalComment on above:Performed By: #### BUN, CREA #### [facility] [address] [place], [place] [id number] Dr. Soo DonnellyBLAST %NormalThe [facility] CampusComment on above:Performed By: #### BUN, CREA #### [facility] [address] [place] [address] Dr. Soo DonnellyCORRECTED WBCNormal4.0-11.0The [facility] CampusComment on above: Performed By: #### BUN, CREA #### [facility] [address] [place] [address] Dr. Soo Pacheco #0.31 103/ulNormal0.00-0.70The [facility] CampusComment on above:Performed By: #### BUN, CREA #### [facility] [address] [place] [address] Dr. Soo Pacheco%2.0 %Normal0.9-7.0The [facility] CampusComment on above: Performed By: #### BUN, CREA #### [facility] [address] [place] [address] Dr. Soo DonnellyHCT41.6 %Icripa99.0-48.0The [facility] CampusComment on above: Performed By: #### BUN, CREA #### [facility] [address] [place] [address] Dr. Soo DonnellyHGB13.8 g/pjSyrstt50.0-16.0The [facility] CampusComment on above: Performed By: #### BUN, CREA #### [facility] [address] [place] [address] Dr. Soo Santoyo #5.27 103/ulCritically high1.20-3.80The [facility] Comment on above:Performed By: #### BUN, CREA #### [facility] [address] [place] [address] Dr. Soo Santoyo%34.0 %Ihqork23.5-60.0The [facility] CampusComment on above:Performed By: #### BUN, CREA #### [facility] [address] [place] [address] Dr. Soo DonnellyMCH31.5 nhTylpyf69.7-34.0The [facility] CampusComment on above: Performed By: #### BUN, CREA #### [facility] [address] [place] [address] Dr. Soo LottHC33.2 g/qbIgtycb67.9-35.2The [facility]ullinger HospitalComment on above:Performed By: #### BUN, CREA #### [facility] [address] [place] [address] Dr. Soo LottV95.0 sPEgnpky87.0-99.0The [facility]inger HospitalComment on above: Performed By: #### BUN, CREA #### [facility] [address] [place] [address] Dr. Soo Zhao #NormalThe [facility] CampusComment on above: Performed By: #### BUN, CREA #### [facility] [address] [place] [address] Dr. Soo CelestinOCYTE %NormalThe Zullinger HospitalComment on above: Performed By: #### BUN, CREA #### [facility] [address] [place] [address] Dr. Soo Gonzalez#0.93 103/ulCritically high0.30-0.80The [facility] on above:Performed By: #### BUN, CREA #### [facility] [address] [place] [address] Dr. Soo Gonzalez%6.0 %Normal1.7-12.0The [facility]ullinger HospitalComment on above: Performed By: #### BUN, CREA #### [facility] [address] [place] [address] Dr. Soo DonnellyMPV10.1 fLNormal9.5-13.5The [facility] CampusComment on above: Performed By: #### BUN, CREA #### [facility] [address] [place] [address] Dr. Soo Zaragoza #NormalThe [facility]ullinger HospitalComment on above:Performed By: #### BUN, CREA #### [facility] [address] [place] [address] Dr. Soo IglesiasELOCYTE %NormalThe [facility] CampusComment on above:Performed By: #### BUN, CREA #### [facility] [address] [place] [address] Dr. Soo ArnettBCNormalThe [facility] CampusComment on above:Performed By: #### BUN, CREA #### [facility] [address] [place] [address] Dr. Soo LewisT260 103/tpZjdott505-430Qrk [facility] CampusComment on above: Performed By: #### BUN, CREA #### [facility] [address] [place] [address] Dr. Soo JamesC4.38 106/ulNormal4.20-5.40The [facility] CampusComment on above:Performed By: #### BUN, CREA #### [facility] [address] [place] [address] Dr. Soo EstradaW12.5 %Ozflbb93.0-15.0The [facility] CampusComment on above: Performed By: #### BUN, CREA #### [facility] [address] [place] [address] Dr. Soo Aldridge #8.99 103/ulCritically high1.40-6.50The [facility] Comment on above:Performed By: #### BUN, CREA #### [facility] [address] [place] [address] Dr. Soo Aldridge %58.0 %Dnnjvi80.0-75.0The [facility] CampusComment on above: Performed By: #### BUN, CREA #### [facility] [address] [place] [address] Dr. Soo GreenwoodBC15.5 103/ulCritically high4.0-11.0The [facility] CampusComment on above:Performed By: #### BUN, CREA #### [facility] [address] [place] [address] Dr. Soo Ta T3on 08-10-0244TQWI T32.62 pg/mlLNormal2.18-3.98[facility] on above:Performed By: #### URIC, CRP #### [facility] [address] [address] [address] Soo DonnellyGLYCOHEMOGLOBIN A1Con 94-22-5074SQF RECOMMENDATIONSEE BELOWNormmn The [facility] CampusComment on above:Result Comment: ADA RECOMMENDED LIMIT 4.0 - 6.0 ADA THERAPEUTIC TARGET < 7.0 ACTION SUGGESTED > 7.0Performed By: #### URIC, CRP #### [facility] [address] [address] [address] Soo DonnellyGlucose [Mass/Vol]137 mg/dLNoUC West Chester HospitalComhenry ford [facility] on above:Performed By: #### URIC, CRP #### [facility] [address] [address] [address] Soo DonnellyHbA1c (Bld) [Mass fraction]6.4 %Critically high4.5-6.2The [facility] on above:Performed By: #### URIC, CRP #### [facility] [address] [address] [address] Soo DonnellyLIPID PROFILEon 90-07-0166KUDT-HDL RATIO NORMSEE BELOWSycamore Medical CenterComhenry ford [facility] on above:Result Comment: 3.3 - 4.4 LOW RISK 4.4 - 7.1 AVERAGE RISK 7.1 - 11.0 MODERATE RISK >11.0 HIGH RISKPerformed By: #### URIC, CRP #### [facility] [address] [address] [address] Soo DonnellyCholesterol [Mass/Vol]226 mg/dLCritically high<=200The [facility] on above:Performed By: #### URIC, CRP #### [facility] [address] [address] [address] Soo DonnellyCholesterol in HDL [Mass/Vol]33 mg/dLCritically syo75-81Gdz [facility] on above:Performed By: #### URIC, CRP #### [facility] [address] [address] [address] Soo DonnellyCholesterol in LDL [Mass/Vol]135.2 mg/dLSycamore Medical CenterComment on above:Performed By: #### URIC, CRP #### [facility] Laboratory [address] [place] [address] Dr. Soo Glezesterjosselin.total/Cholesterol in HDL [Mass ratio]6.8 {ratio} NormalThe [facility] West CampusComment on above:Performed By: #### URIC, CRP #### [facility] [address] [place] [address] Dr. Soo Jiménez NORMAL> or = 60 mg/dl - LOW CARDIOVASCULAR RISK <40 mg/dl - HIGH CARDIOVASCULAR RISKSycamore Medical CenterComhenry [facility] on above:Performed By: #### URIC, CRP #### [facility] [address] [place] [address] Dr. Soo Jovel CALC NORMALSEE BELOWSycamore Medical CenterComment on above:Result Comment: <100 mg/dl OPTIMAL 100 - 129 mg/dl NEAR OR ABOVE OPTIMAL 130 - 159 mg/dl BORDERLINE HIGH 160 - 189 mg/dl HIGH >190 mg/dl VERY HIGH Performed By: #### URIC, CRP #### [facility] [address] [place] [address] Dr. Soo DonnellyTriglyceride [Mass/Vol]289 mg/dLCritically high<=150[facility] on above:Performed By: #### URIC, CRP #### [facility] [address] [place] [address] Dr. Soo Montes De OcaLDL CALC57.8 mg/dLSycamore Medical CenterComhenry [facility] on above: Performed By: #### URIC, CRP #### [facility] [address] [place] [address] Dr. Soo DonnellyPROAj 14(COMP METB)on [id number] [Mass/Vol]3.2 g/dL Critically low3.4-5.0The [facility] Centerment on above:Performed By: #### URIC, CRP #### [facility] [address] [address] [address] Soo DonnellyAlbumin/Globulin [Mass ratio]1.1 {ratio}NormalThe [facility] CampusComment on above:Performed By: #### URIC, CRP #### [facility] [address] [address] [address] Soo OttoP [Catalytic activity/Vol]41 U/LCritically keq91-048Poa [facility] CampusComment on above:Performed By: #### URIC, CRP #### [facility] [address] [address] [address] Soo OttoT [Catalytic activity/Vol]46 U/ODnobom45-51Bmh [facility] CampusComment on above:Performed By: #### URIC, CRP #### [facility] [address] [place] [address] Dr. Soo Cervanteson gap [Moles/Vol]9.3 mmol/LNormalThe [facility] CampusComment on above:Performed By: #### URIC, CRP #### [facility] [address] [place] [address] Dr. Soo DonnellyAST [Catalytic activity/Vol]18 U/AKlamwc33-09Dlg [facility] CampusComment on above:Performed By: #### URIC, CRP #### [facility] [address] [address] [address] Soo DonnellyBilirubin [Mass/Vol]0.7 mg/dLNormal0.2-1.0The [facility] Comment on above:Performed By: #### URIC, CRP #### [facility] [address] [place] [address] Dr. Soo DonnellyCalcium [Mass/Vol]8.1 mg/dLCritically low8.5-10.1The [facility] CampusComment on above:Performed By: #### URIC, CRP #### [facility] [address] [place] [address] Dr. Soo DonnellyChloride [Moles/Vol]101 mmol/LOmjjlv12-483Ofu [facility] Comment on above:Performed By: #### URIC, CRP #### [facility] [address] [address] [address] Soo DonnellyCO2 [Moles/Vol]31.1 mmol/AFnqzyt75.0-32.0The [facility] Comment on above:Performed By: #### URIC, CRP #### [facility] [address] [address] [address] Soo DonnellyCreatinine [Mass/Vol]0.77 mg/dLNormal0.55-1.02The [facility] CampusComment on above:Performed By: #### URIC, CRP #### [facility] [address] [address] [address] Vann ChangEGFR-AF INDONESIAN>60Normal>=60The [facility] CampusComment on above:Performed By: #### URIC, CRP #### [facility] [address] [place] [address] Dr. Soo JoynerGFR-NON AF INDONESIAN>60Normal>=60The [facility] CampusComment on above:Performed By: #### URIC, CRP #### [facility] [address] [place] [address] Dr. Soo DonnellyGlobulin (S) [Mass/Vol]3.0 g/dLNormalThe [facility] CampusComment on above:Performed By: #### URIC, CRP #### [facility] [address] [place] [address] Dr. Soo DonnellyGlucose [Mass/Vol]104 mg/vMRrqrlg10-275Oba [facility] Comment on above:Performed By: #### URIC, CRP #### [facility] [address] [place] [address] Dr. Soo DonnellyPotassium [Moles/Vol]3.4 mmol/LCritically low3.5-5.1The [facility] CampusComment on above:Performed By: #### URIC, CRP #### [facility] [address] [place] [address] Dr. Soo DonnellyProtein [Mass/Vol]6.2 g/dLCritically low6.4-8.2The [facility] CampusComment on above:Performed By: #### URIC, CRP #### [facility] [address] [place] [address] Dr. Soo Shahdium [Moles/Vol]138 mmol/IDmldye908-159Rad [facility] Comment on above:Performed By: #### URIC, CRP #### [facility] [address] [place] [address] Dr. Soo DonnellyUrea nitrogen [Mass/Vol]16.0 mg/dLNormal7.0-18.0The [facility] CampusComment on above:Performed By: #### URIC, CRP #### [facility] [address] [place] [address] Dr. Soo Hopkins nitrogen/Creatinine [Mass ratio]20.8 mg/mgNormalThe [facility] CampusComment on above:Performed By: #### URIC, CRP #### [facility] [address] [place] [address] Dr. Soo Pratt 02-13-1499RPD2.262 uIU/mLNormal0.358-3.740The [facility] CampusComment on above:Performed By: #### URIC, CRP #### [facility] [address] [place] [address] Dr. Soo Mohr AUTO DIFFon [id number] #0.0 103/ulNormal0.0-0.1The [facility] CampusComment on above:Performed By: #### URIC, CRP #### [facility] [address] [place] [address] Dr. Soo DonnellyBasophils/100 WBC (Bld)0.2 %Normal0.2-2.0[facility] Comment on above:Performed By: #### URIC, CRP #### [facility] [address] [place] [address] Dr. Soo Reed #0.0 103/ulNormal0.0-0.7The [facility] CampusComment on above: Performed By: #### URIC, CRP #### [facility] [address] [place] [address] Dr. Soo Joynerosinophils/100 WBC (Bld)0.2 %Critically low0.9-7.0The [facility] CampusComment on above:Performed By: #### URIC, CRP #### [facility] [address] [place] [address] Dr. Soo Joynerrythrocyte distribution width (RBC) [Ratio]12.8 %Wyzvqg27.0-15.0 [facility] HospitalComment on above:Performed By: #### URIC, CRP #### [facility] [address] [place] [address] Dr. Soo DonnellyHematocrit (Bld) [Volume fraction]35.7 %Critically low36.0-48.0 The [facility] CampusComment on above:Performed By: #### URIC, CRP #### [facility] [address] [place] [address] Dr. Soo DonnellyHemoglobin (Bld) [Mass/Vol]11.5 g/dLCritically low12.0-16.0The [facility] CampusComment on above:Performed By: #### URIC, CRP #### [facility] [address] [place] [address] Dr. Soo Gould #0.07 10e3/ulCritically high0.00-0.03[facility] Comment on above:Performed By: #### URIC, CRP #### [facility] [address] [place] [address] Dr. Soo DonnellyIG %0.5 %Normal0.0-0.5The [facility] CampusComment on above: Performed By: #### URIC, CRP #### [facility] [address] [place] [address] Dr. Soo JonesH #4.1 103/ulCritically high1.2-3.8The [facility] Comment on above:Performed By: #### URIC, CRP #### [facility] [address] [place] [address] Dr. Soo Huangmphocytes/100 WBC (Bld)28.3 %Ikofzf36.5-60.0The [facility] CampusComment on above:Performed By: #### URIC, CRP #### [facility] [address] [place] [address] Dr. Soo Lantigua DIFF REQNONormalThe [facility] CampusComment on above: Performed By: #### URIC, CRP #### [facility] [address] [place] [address] Dr. Soo Lott (RBC) [Entitic mass]31.7 woEzeogz66.7-34.0The [facility] CampusComment on above:Performed By: #### URIC, CRP #### [facility] [address] [place] [address] Dr. Soo Lott (RBC) [Mass/Vol]32.2 g/iHTczhrh05.9-35.2The [facility] CampusComment on above:Performed By: #### URIC, CRP #### [facility] [address] [place] [address] Dr. Soo Lott (RBC) [Entitic vol]98.3 hPJvvobl82.0-99.0The [facility] CampusComment on above:Performed By: #### URIC, CRP #### [facility] [address] [place] [address] Dr. Soo Solis #0.8 103/ulNormal0.3-0.8The [facility] CampusComment on above:Performed By: #### URIC, CRP #### [facility] [address] [place] [address] Dr. Soo Boyerocytes/100 WBC (Bld)5.6 %Normal1.7-12.0[facility] Comment on above:Performed By: #### URIC, CRP #### [facility] [address] [place] [address] Dr. Soo Burk #9.4 103/ulCritically high1.4-6.5The [facility] Comment on above:Performed By: #### URIC, CRP #### [facility] [address] [place] [address] Dr. Soo Sandovalutrophils/100 WBC (Bld)65.2 %Oocelr58.0-75.0The [facility] Centerment on above:Performed By: #### URIC, CRP #### [facility] [address] [place] [address] Dr. Soo Casas mean volume (Bld) [Entitic vol]10.8 fLNormal9.5-13.5The [facility] CampusComment on above:Performed By: #### URIC, CRP #### [facility] [address] [place] [address] Dr. Soo DonnellyPLT191 103/ryLxlnbh734-018Urf [facility] CampusComhen[facility] on above: Performed By: #### URIC, CRP #### [facility] [address] [place] [address] Dr. Soo aJmesC3.63 106/ulCritically low4.20-5.40[facility] on above:Performed By: #### URIC, CRP #### [facility] [address] [place] [address] Dr. Soo GreenwoodBC14.4 103/ulCritically high4.0-11.0The [facility] CampusComhen[facility] on above:Performed By: #### URIC, CRP #### [facility] [address] [place] [address] Dr. Soo Vee [id number] nitrogen [Mass/Vol]8.0 mg/dLNormal7.0-18.0 [facility] on above:Performed By: #### BUN, CREA #### [facility] [address] [place] [address] Dr. Soo Mohr AUTO DIFFon [id number] #0.0 103/ulNormal0.0-0.1[facility] on above:Performed By: #### URIC, CRP #### [facility] [address] [place] [address] Dr. Soo DonnellyBasophils/100 WBC (Bld)0.1 %Critically low0.2-2.0[facility] on above:Performed By: #### URIC, CRP #### [facility] [address] [address] [address] Soo Reed #0.0 103/ulNormal0.0-0.7The [facility] CampusComment on above: Performed By: #### URIC, CRP #### [facility] [address] [place] [address] Dr. Soo Joynerosinophils/100 WBC (Bld)0.0 %Critically low0.9-7.0The [facility] CampusComment on above:Performed By: #### URIC, CRP #### [facility] [address] [place] [address] Dr. Soo Joynerrythrocyte distribution width (RBC) [Ratio]12.5 %Mkklqq08.0-15.0 The [facility] CampusComment on above:Performed By: #### URIC, CRP #### [facility] [address] [place] [address] Dr. Soo DonnellyHematocrit (Bld) [Volume fraction]38.5 %Kyqntd78.0-48.0The [facility] CampusComment on above:Performed By: #### URIC, CRP #### [facility] [address] [place] [address] Dr. Soo DonnellyHemoglobin (Bld) [Mass/Vol]13.0 g/bAUclcnd90.0-16.0The [facility] CampusComment on above:Performed By: #### URIC, CRP #### [facility] [address] [place] [address] Dr. Soo Gould #0.16 10e3/ulCritically high0.00-0.03The [facility] Comment on above:Performed By: #### URIC, CRP #### [facility] [address] [place] [address] Dr. Soo Gould %0.7 %Critically high0.0-0.5The [facility] CampusComment on above:Performed By: #### URIC, CRP #### [facility] [address] [place] [address] Dr. Soo Jones #3.0 103/ulNormal1.2-3.8The [facility] CampusComment on above:Performed By: #### URIC, CRP #### [facility] [address] [place] [address] Dr. Soo Huangmphocytes/100 WBC (Bld)12.2 %Critically low20.5-60.0The [facility] CampusComment on above:Performed By: #### URIC, CRP #### [facility] [address] [place] [address] Dr. Soo Lantigua DIFF REQNONormalThe [facility] CampusComment on above: Performed By: #### URIC, CRP #### [facility] [address] [place] [address] Dr. Soo Lott (RBC) [Entitic mass]32.4 lpUokalu04.7-34.0The [facility] CampusComment on above:Performed By: #### URIC, CRP #### [facility] [address] [place] [address] Dr. Soo Lott (RBC) [Mass/Vol]33.8 g/vSGmlgap96.9-35.2The [facility] CampusComment on above:Performed By: #### URIC, CRP #### [facility] [address] [place] [address] Dr. Soo Wong (RBC) [Entitic vol]96.0 dPKtyjhu92.0-99.0The [facility] CampusComment on above:Performed By: #### URIC, CRP #### [facility] [address] [place] [address] Dr. Soo Solis #1.3 103/ulCritically high0.3-0.8The [facility] Comment on above:Performed By: #### URIC, CRP #### [facility] [address] [place] [address] Dr. Soo Boyerocytes/100 WBC (Bld)5.4 %Normal1.7-12.0[facility] Comment on above:Performed By: #### URIC, CRP #### [facility] [address] [place] [address] Dr. Soo Burk #19.8 103/ulCritically high1.4-6.5The [facility] Comment on above:Performed By: #### URIC, CRP #### [facility] [address] [place] [address] Dr. Soo Sandovalutrophils/100 WBC (Bld)81.6 %Critically high43.0-75.0The [facility] CampusComment on above:Performed By: #### URIC, CRP #### [facility] [address] [place] [address] Dr. Soo Saezlet mean volume (Bld) [Entitic vol]10.5 fLNormal9.5-13.5The [facility] CampusComment on above:Performed By: #### URIC, CRP #### [facility] [address] [place] [address] Dr. Soo DonnellyPLT253 103/dyOufcba655-793Wsf [facility] CampusComment on above: Performed By: #### URIC, CRP #### [facility] [address] [place] [address] Dr. Soo DonnellyRBC4.01 106/ulCritically low4.20-5.40The [facility] CampusComment on above:Performed By: #### URIC, CRP #### [facility] [address] [place] [address] Dr. Soo DonnellyWBC24.3 103/ulCritically high4.0-11.0The [facility] CampusComment on above:Performed By: #### URIC, CRP #### [facility] [address] [place] [address] Dr. Soo GilmoreSO #0.0 103/ulNormal0.0-0.1The [facility] CampusComment on above:Performed By: #### URIC, CRP #### [facility] [address] [place] [address] Dr. Soo Gilmoresophils/100 WBC (Bld)0.1 %Critically low0.2-2.0The [facility] CampusComment on above:Performed By: #### URIC, CRP #### [facility] [address] [place] [address] Dr. Soo Reed #0.0 103/ulNormal0.0-0.7The [facility] CampusComment on above: Performed By: #### URIC, CRP #### [facility] [address] [place] [address] Dr. Soo Joynerosinophils/100 WBC (Bld)0.0 %Critically low0.9-7.0The [facility] CampusComment on above:Performed By: #### URIC, CRP #### [facility] [address] [place] [address] Dr. Soo Joynerrythrocyte distribution width (RBC) [Ratio]12.3 %Ikdwqg19.0-15.0 The [facility] CampusComment on above:Performed By: #### URIC, CRP #### [facility] [address] [place] [address] Dr. Soo DonnellyHematocrit (Bld) [Volume fraction]41.2 %Zkaepf86.0-48.0The [facility] CampusComment on above:Performed By: #### URIC, CRP #### [facility] [address] [place] [address] Dr. Soo DonnellyHemoglobin (Bld) [Mass/Vol]13.5 g/lAHmmmyw38.0-16.0The [facility] CampusComment on above:Performed By: #### URIC, CRP #### [facility] [address] [place] [address] Dr. Soo Gould #0.11 10e3/ulCritically high0.00-0.03The [facility] Comment on above:Performed By: #### URIC, CRP #### [facility] [address] [place] [address] Dr. Soo Gould %0.5 %Normal0.0-0.5The [facility] Centerment on above: Performed By: #### URIC, CRP #### [facility] [address] [place] [address] Dr. Soo Carmichael #1.6 103/ulNormal1.2-3.8The [facility] CampusComment on above:Performed By: #### URIC, CRP #### [facility] [address] [place] [address] Dr. Soo Huangmphocytes/100 WBC (Bld)7.8 %Critically low20.5-60.0The [facility] CampusComment on above:Performed By: #### URIC, CRP #### [facility] [address] [place] [address] Dr. Soo Lantigua DIFF REQNONormalThe [facility] CampusComment on above: Performed By: #### URIC, CRP #### [facility] [address] [place] [address] Dr. Soo Lott (RBC) [Entitic mass]31.8 dbIbywgk91.7-34.0The [facility] CampusComment on above:Performed By: #### URIC, CRP #### [facility] [address] [place] [address] Dr. Soo Lott (RBC) [Mass/Vol]32.8 g/lNAeigvq31.9-35.2The [facility] CampusComment on above:Performed By: #### URIC, CRP #### [facility] [address] [place] [address] Dr. Soo Lott (RBC) [Entitic vol]96.9 dQEapxov45.0-99.0The [facility] CampusComment on above:Performed By: #### URIC, CRP #### [facility] [address] [place] [address] Dr. Soo Solis #0.4 103/ulNormal0.3-0.8The [facility] CampusComment on above:Performed By: #### URIC, CRP #### [facility] [address] [place] [address] Dr. Soo Boyerocytes/100 WBC (Bld)2.0 %Normal1.7-12.0The [facility] Comment on above:Performed By: #### URIC, CRP #### [facility] [address] [place] [address] Dr. Soo Burk #18.1 103/ulCritically high1.4-6.5The [facility] Comment on above:Performed By: #### URIC, CRP #### [facility] [address] [place] [address] Dr. Soo Sandovalutrophils/100 WBC (Bld)89.6 %Critically high43.0-75.0The [facility] CampusComment on above:Performed By: #### URIC, CRP #### [facility] [address] [place] [address] Dr. Soo Saezlet mean volume (Bld) [Entitic vol]11.0 fLNormal9.5-13.5The [facility] CampusComment on above:Performed By: #### URIC, CRP #### [facility] [address] [place] [address] Dr. Soo DonnellyPLT223 103/hjArmysk125-404Zcp [facility] CampusComment on above: Performed By: #### URIC, CRP #### [facility] [address] [place] [address] Dr. Soo DonnellyRBC4.25 106/ulNormal4.20-5.40The [facility] CampusComment on above:Performed By: #### URIC, CRP #### [facility] [address] [place] [address] Dr. Soo DonnellyWBC20.2 103/ulCritically high4.0-11.0The [facility] CampusComment on above:Performed By: #### URIC, CRP #### [facility] [address] [place] [address] Dr. Soo DonnellyCREATININEpage 14-86-1409Ptrdysalau [Mass/Vol]0.97 mg/dLNormal 0.55-1.02The [facility] CampusComment on above:Performed By: #### BUN, CREA #### [facility] [address] [place] [address] Dr. Soo JoynerGFR-AF INDONESIAN>60Normal>=60The [facility] CampusComment on above:Performed By: #### KYMBERLY PEÑA #### [facility] [address] [place], [place] [address] Dr. Vann ChangEGFR-NON AF INDONESIAN>60Normal>=60The [facility] CampusComment on above:Performed By: #### KYMBERLY PEÑA #### [facility] [address] [place], [place] [address] Dr. Soo Santana CHEST WO W CONon [id number] CHEST WO W CONEXAMINATION: CTA CHEST WO W CON HISTORY: SHORTNESS [...] authenticated by: LUZ ELENA SAUCEDA Date: 2022-05-17 16:40[facility] 2 Von [id number] CHEST 2 VEXAM: XR CHEST 2 V 05/17/2022 3:46 PM. [...] Electronically authenticated by: SAMI JONES Date: 2022-05-17 16:10[facility] AUTO DIFFon [id number] #0.1 103/ulNormal0.0-0.1The [facility] CampusComment on above:Performed By: #### BUN, CREA #### [facility] [address] [place] [address] Dr. Soo DonnellyBasophils/100 WBC (Bld)0.5 %Normal0.2-2.0The [facility] Comment on above:Performed By: #### BUN, CREA #### [facility] [address] [place] [address] Dr. Soo Reed #0.1 103/ulNormal0.0-0.7The [facility] CampusComment on above: Performed By: #### BUN CREA #### [facility] [address] [place] [address] Dr. Soo Joynerosinophils/100 WBC (Bld)1.0 %Normal0.9-7.0The [facility] Comment on above:Performed By: #### BUN CREA #### [facility] [address] [place] [address] Dr. Soo Joynerrythrocyte distribution width (RBC) [Ratio]12.2 %Gnqsbm75.0-15.0 The [facility] CampusComment on above:Performed By: #### BUN, CREA #### [facility] [address] [place] [address] Dr. Soo DonnellyHematocrit (Bld) [Volume fraction]41.2 %Qgisqf77.0-48.0The [facility] CampusComment on above:Performed By: #### BUN, CREA #### [facility] [address] [place] [address] Dr. Soo DonnellyHemoglobin (Bld) [Mass/Vol]13.9 g/cTGrgyhd16.0-16.0The [facility] CampusComment on above:Performed By: #### BUN, CREA #### [facility] [address] [address] [address] Soo Gould #0.04 10e3/ulCritically high0.00-0.03The [facility] Comment on above:Performed By: #### BUN, CREA #### [facility] [address] [place] [address] Dr. Soo Gould %0.4 %Normal0.0-0.5The [facility] CampusComment on above: Performed By: #### BUN, CREA #### [facility] [address] [place] [address] Dr. Soo Carmichael #3.5 103/ulNormal1.2-3.8The [facility] CampusComment on above:Performed By: #### BUN, CREA #### [facility] [address] [place] [address] Dr. Soo Joneshocytes/100 WBC (Bld)35.3 %Evrpfx15.5-60.0The [facility] CampusComment on above:Performed By: #### BUN, CREA #### [facility] [address] [place] [address] Dr. Soo FernándezUAL DIFF REQNONormalThe [facility] CampusComment on above: Performed By: #### BUN, CREA #### [facility] [address] [place] [address] Dr. Soo Flores (RBC) [Entitic mass]31.7 czEiugag07.7-34.0The [facility] CampusComment on above:Performed By: #### BUN, CREA #### [facility] [address] [place] [address] Dr. Soo Lott (RBC) [Mass/Vol]33.7 g/wZJdqrkv76.9-35.2The [facility] CampusComment on above:Performed By: #### BUN, CREA #### [facility] [address] [place] [address] Dr. Soo Lott (RBC) [Entitic vol]94.1 oPRjcxvx50.0-99.0The [facility] CampusComment on above:Performed By: #### BUN, CREA #### [facility] [address] [place] [address] Dr. Soo Solis #0.5 103/ulNormal0.3-0.8The [facility] CampusComment on above:Performed By: #### BUN, CREA #### [facility] [address] [place] [address] Dr. Soo Boyerocytes/100 WBC (Bld)5.4 %Normal1.7-12.0The [facility] Comment on above:Performed By: #### BUN, CREA #### [facility] [address] [place] [address] Dr. Soo Burk #5.6 103/ulNormal1.4-6.5The [facility] CampusComment on above:Performed By: #### BUN, CREA #### [facility] [address] [place] [address] Dr. Soo Sandovalutrophils/100 WBC (Bld)57.4 %Dtnqzx27.0-75.0The [facility] CampusComment on above:Performed By: #### BUN, CREA #### [facility] [address] [place] [address] Dr. Soo Casas mean volume (Bld) [Entitic vol]10.3 fLNormal9.5-13.5The [facility] CampusComment on above:Performed By: #### BUN, CREA #### [facility] [address] [place] [address] Dr. Soo LewisT235 103/wsVsexlb553-113Oqk [facility] CampusComment on above: Performed By: #### BUN, CREA #### [facility] [address] [place] [address] Dr. Soo DonnellyRBC4.38 106/ulNormal4.20-5.40The [facility] CampusComment on above:Performed By: #### BUN, CREA #### [facility] [address] [place] [address] Dr. Soo DonnellyWBC9.8 103/ulNormal4.0-11.0[facility] HospitalComment on above: Performed By: #### BUN, CREA #### [facility] [address] [place] [address] Dr. Soo DonnellyPREG QUANT HCGon 07-67-7070GYF QUANT<1NormalThe [facility] Comment on above:Performed By: #### URIC, CRP #### [facility] [address] [place] [address] Dr. Soo DonnellyHCG RANGESEE BELOWSycamore Medical CenterComment on above: Result Comment: 5-50 0-1 WEEK 40-300 1-2 WEEKS 100-1,000 2-3 WEEKS 500-6,000 3-4 WEEKS 5,000-200,000 1-2 MONTHS 10,000-100,000 2-3 MONTHS 3,000-50,000 2ND TRIMESTER 1,000-50,000 3RD TRIMESTERPerformed By: #### URIC, CRP #### [facility] [address] [place] [address] Dr. Soo DonnellyCovid-19 PCR ([facility])on 03-81-7050QSCI-CoV-2 (COVID-19) RNA NOLA+probe Ql (Unsp spec)Not detectedNormalNOT DETECTEDThe [facility] Comment on above:Result Comment: This test is not yet approved or cleared by the [place] FDA. When there are no FDA-approved or cleared tests available, and other criteria are met, FDA can make tests available under an emergency access mechanism called an Emergency Use Authorization (EUA). The EUA for this test is supported by the Senior Scientist of Health and Human Service's (HHS's) declaration that circumstances exist to justify the emergency use of in vitro diagnostics for the detection and/or diagnosis of the virus that causes COVID- 19. This EUA will remain in effect (meaning [...] of clinical signs and symptoms consistent with SARS-CoV-2.Performed By: #### CVDTBH #### [facility] [address] [place] [address] Dr. Soo DonnellyTYPE AND SCREENon 52-26-1667FFZH AND SCREENNegativeSycamore Medical CenterComhenry ford [facility] on above:Performed By: #### BUN, CREA #### [facility] [address] [place] [address] Dr. Soo Alcantar ACOG PANEL 2: 30 to 65on 05-07-2022..NormalThe [facility] CampusComhenry ford wy[facility]otte hospital on above:Result Comment: Performed at: WBPerformed By: #### [id number] #### [facility] [address] [place] [address] Dr. Soo Ames Gdln ACOG Neizows68-07ZewrvmJkaUC [facility] HospitalComhenry [facility] on above:Performed By: #### [id number] #### [facility] [address] [place] [address] Dr. Soo DonnellyDIAGNOSIS:CommentSycamore Medical CenterComhenry ford wyand[facility] hospital on above: Result Comment: NEGATIVE FOR INTRAEPITHELIAL LESION OR MALIGNANCY. Performed at: WBPerformed By: #### [id number] #### [address] [address] Dr[address] Soo DonnellyHPV AptimaNegativeNormalNegativeUniversity Hospitals Ahuja [facility] on above:Result Comment: This nucleic acid amplification test detects fourteen high-risk HPV types (16,18,31,33,35,39,45,51,52,56,58,59,66,68) without differentiation. Performed at: =GPerformed By: #### [id number] #### [facility] [address] [place] [address] Dr. Soo DonnellyMethodology:CommentSelect Medical [facility] Clinic [facility], [place] on above: Result Comment: This liquid based ThinPrep(R) pap test was screened with the use of an image guided system. Performed at: WBPerformed By: #### [id number] #### [facility] [address] [place] [address] Dr. Soo DonnellyNote:CommentSelect Medical [facility] Clinic [facility], [place] on above:Result Comment: The Pap smear is a screening test designed to aid in the detection of premalignant and malignant conditions of the uterine cervix. It is not a diagnostic procedure and should not be used as the sole means of detecting cervical cancer. Both false-positive and false-negative reports do occur. . Performed at: WBPerformed By: #### [id number] #### [facility] [address] [place] [address] Dr. Soo DonnellyPerformed by:CommentSelect Medical [facility] [place] on above: Result Comment: Dustin Rod Precision Grinder External (ASCP) Performed at: WBPerformed By: #### [id number] #### [address] [address] Dr[address] Soo DonnellySpecimen adequacy:CommentSelect Medical [facility], [place] on above:Result Comment: Satisfactory for evaluation. Endocervical and/or squamous metaplastic cells (endocervical component) are present. Performed at: WBPerformed By: #### [id number] #### [facility] [address] [place] [address] Dr. Soo Barkley by IFAon 76-28-9493Vfkrndrqpvx Antibodies, IFANegativeNormal [facility] on above:Result Comment: Negative <1:80 Borderline 1:80 Positive >1:80 ICAP nomenclature: AC-0 For more information about Hep-2 cell patterns use ANApatterns.org, the official website for the International Consensus on Antinuclear Antibody (ROSS) Patterns (ICAP).Performed By: #### URIC, CRP #### [facility] [address] [place] [address] Dr. Soo Barkley DIRECTon 51-12-4169MEV DirectNegativeNormalNegativeThe [facility] on above:Performed By: #### ANAD #### [facility] [address] [place] [address] Dr. Soo DonnellyANTISTREPTOLYSIN O AB (ASO)on 55-75-9900Epscsjegmyfdzein O Ab 115.3 IU/mLNormal0.0-200.0Dun[facility] HospitalComment on above:Performed By: #### BUN, CREA #### [facility] [address] [place] [address] Dr. Soo DonnellyC3 and C4 COMPLEMENTon 50-87-7183Gstmxdlopg C3, Duehh568 mg/dL Wpaibx52-602Hlz [facility] CampusComment on above:Performed By: #### URIC, CRP #### [facility] [address] [place] [address] Dr. Soo DonnellyComplement C4, Serum23 mg/nEPwcckk00-09EeeDunlap Memorial Hospital Comment on above:Performed By: #### URIC, CRP #### [facility] [address] [place] [address] Dr. Soo Brar PROFILE Aon 00-88-1654Zleq-DNA (DS) Ab Qn<4Cbjlge6-2EuaDunlap Memorial HospitalComment on above:Result Comment: Negative <5 Equivocal 5 - 9 Positive >9Performed By: #### SLEA #### [facility] [address] [place] [address] Dr. Soo DonnellyAntichromatin Antibodies<0.5Vyphwz6.0-0.9[facility] Comment on above:Performed By: #### SLEA #### [facility] [address] [place] [address] Dr. Soo Matthew Latex Turbid.<10.0Normal<14.0The [facility] CampusComment on above:Performed By: #### SLEA #### [facility] [address] [place] [address] Dr. Soo Boo Antibodies<0.7Ioqsqz2.0-0.9The [facility] CampusComment on above:Performed By: #### SLEA #### [facility] [address] [place] [address] Dr. Soo Chang Anti-SS-A<0.8Raqqio7.0-0.9[facility] Memorial HospitalComment on above:Performed By: #### SLEA #### [facility] [address] [place] [address] Dr. Soo Chang Anti-SS-B<0.3Vxtohd1.0-0.9The [facility] CampusComment on above:Performed By: #### SLEA #### [facility] [address] [place] [address] Dr. Soo DonnellySmith Antibodies<0.9Cidubx1.0-0.9The [facility] CampusComment on above:Performed By: #### SLEA #### [facility] [address] [place] [address] Dr. Soo DonnellyCRPon 62-72-8115BAB [Mass/Vol]mg/LNormal<=1.0The [facility] CampusComment on above:Performed By: #### URIC, CRP #### [facility] [address] [place] [address] Dr. Soo DonnellyURIC ACID SERUMon 03-96-4418Cxdbf [Mass/Vol]4.7 mg/dLNormal 2.5-6.2The [facility] CampusComment on above:Performed By: #### URIC, CRP #### [facility] [address] [place] [address] Dr. Soo DonnellyXR CSPINE MIN 4 VIEWSon 51-64-3052MI CSPINE MIN 4 VIEWS EXAMINATION: XR TSPINE [...] Electronically authenticated by: ABIGAIL GONSALVES Date: 2022-02-19 16:33NoUC [facility] HospitalXR HAND DEAN MIN 3Von 29-52-7932PR HAND DEAN MIN 3VEXAMINATION: XR HAND DEAN MIN 3V HISTORY: Joint [...] Electronically authenticated by: ABIGAIL GONSALVES Date: 2022-02-19 16:28[facility] Medical CenterASYMPTOMATIC COVID-19 ANTIGENon 84-07-5420YDU StatementSEE [facility] CompanyComhenry ford [facility] on above:Result Comment: This test has not been FDA [...] declaration is terminated or authorization is revoked sooner.Performed By: #### CVDAGA #### [facility] [address] [place] [address] Dr. Soo Pepe-CoV-2 (COVID-19) RNA NOLA+probe Ql (Unsp spec)NegativeNormal NEGATIVEThe [facility] on above:Result Comment: Negative results are presumptive. They do not preclude infection and should not be used as the sole basis for treatment decisions. Additional confirmatory testing by a molecular method should be considered.Performed By: #### CVDAGA #### [facility] [address] [place] [address] Dr. Soo Maldonadod-19 PCR (CVDTB)on 15-52-0787TIMZ-CoV-2 (COVID-19) RNA NOLA+probe Ql (Unsp spec)Not detectedNormalNOT DETECTEDThe [facility] Comment on above:Result Comment: This test is not yet approved or cleared by the [place] FDA. When there are no FDA-approved or cleared tests available, and other criteria are met, FDA can make tests available under an emergency access mechanism called an Emergency Use Authorization (EUA). The EUA for this test is supported by the Senior Scientist of Health and Human Service's (HHS's) declaration that circumstances exist to justify the emergency use of in vitro diagnostics for the detection and/or diagnosis of the virus that causes COVID- 19. This EUA will remain in effect (meaning [...] of clinical signs and symptoms consistent with SARS-CoV-2.Performed By: #### URIC, CRP #### [facility] [address] [address] [address] Soo Donnelly Vital Signs Date TimeVital SignValuePerforming EkyfflataIjyukfzi15-92-0556 08:24-0500Body .6 cmAngestelle Hughes DECK STEWARD Work Phone: NOUniversity [facility] Medical CenterHzjnswuebw01-26-2011 08:24-0500Body mass index (BMI) [Ratio]29.7 kg/f6BufurzTiesha Hughes DECK STEWARD Work Phone: [phone] Health [facility] Medical CenterYdadbqdsks26-48-0715 08:24-0500Body rquqfc32.46 kgTiesha Hughes DECK STEWARD Work Phone: NOUn[facility] CenterEfiqxyzqnv79-44-2805 08:24-0500Diastolic blood gzvfuqgq89 mm[Hg]Tiesha Hughes DECK STEWARD Work Phone: NOUn[facility] Medical CenterWxxqnnngcz86-77-2395 08:24-0500Heart rate75 /min Tiesha Hughes [employer]EWARD Work Phone: NOUn[facility] Medical CenterJsqwtlbbof04-72-3321 08:24-3732OoJ6% (BldA) [Mass fraction]97 %Tiesha Martinezlizeth DECK STEWARD Work Phone: [facility] HospitalVbimrzckly86-52-9738 08:24-0500Systolic blood mruxvwhx432 mm[Hg]Tiesha Vernoncharlotte DECK STEWARD Work Phone: [facility] HospitalAgkodcwjkl29-71-7975 13:21-0500Body mass index (BMI) [Ratio]28.66 kg/r0Teoyy Lidia DO Work Phone: [facility] HospitalPcphksxpfk74-75-1799 13:21-0500Body klgmii43.01 kgCorey Lidia DO Work Phone: [facility] HospitalJlnnwbsiue61-21-1303 13:21-0500Diastolic blood oqfuqhbc28 mm[Hg]Delgado Lidia DO Work Phone: [facility] HospitalGvyirwidrr97-59-1734 13:21-0500Systolic blood jzzloqsz423 mm[Hg]Delgado Lidia DO Work Phone: [facility] HospitalXbbnwxfkpp05-42-9713 14:30-0500Blood Pressure LocationMohamad Brettmarcoli [phone]-MbkxsPromedica Bay [facility] Hospital12-02-2024 14:30-0500Diastolic blood swswmahy67 mm[Hg]Namrataklausd Momarcoli [phone]-IkydiPromedica Bay Park Hospital12-02-2024 14:30-0500Heart rate93 /minMohamad Mouchli [phone]-MoyauPromedica Bay Park Hospital12-02-2024 14:30-0500Respiratory rate16 /minMohamad Mouchli 805-4785Ajdffh-XsdknPromedica Bay Park Hospital12-02-2024 14:30-0500Systolic blood fnkdtssy086 mm[Hg]Namrataklausd Mouchli [phone]-CqwmqPromedica Bay Park Hospital11-20-2024 11:08-0500Body pydcur078.[address]11-20-2024 11:08-0500 Body mass index (BMI) [Ratio]28.41 kg/m2Pmh [address] [place] [address] [employer] Jaaczb75-47-8546 11:08-0500Body pkkjye59.[address] [place] [address] [employer] Ucsmkg78-15-6696 14:20-0500 Body ltujkh000.2 cmBecca Schwarz APRN-FOLDER OPERATOR Work Phone: [facility] [employer] Caomuv37-89-7048 14:20-0500Body mass index (BMI) [Ratio]28.51 kg/p5Cfsffau Chong HOT MIX OPERATOR-FOLDER OPERATOR Work Phone: [facility] [employer] Nqapke46-05-8584 14:20-0500Body eoeteb57.56 kgVickyArrayent Chong MICHAELN-FOLDER OPERATOR Work Phone: [facility] [employer] Qjbjgb30-13-2973 15:19-0500Blood Pressure LocationMichael NILL [facility]12-02-2022 15:19-0500Diastolic blood mm[Hg]Nicola NILL [facility] Vgvajjtj30-52-4844 15:19-0500Heart rate 72 /minMichael NILL [facility] Pifvkkhe57-50-0513 15:19-0500 Respiratory rate16 /minMichael NILL [facility]12-02-2022 15:19-0500Systolic blood anjeqqec063 mm[Hg]Nicola NILL [facility]11-01-2022 16:30-0400Body .18 cmDeRevee Other [employer] Other 11-01-2022 16:30-0400Body mass index (BMI) [Ratio] 32.84 kg/z6EyuadhgRevee Other [employer] Other 11-01-2022 16:30-0400Body .12 kgDenate Hull Other [employer] Other 11-01-2022 16:30-0400Diastolic blood blolwgyv19 mm[Hg] Clarice Hull Other [employer] Other 11-01-2022 16:30-0400Respiratory rate18 /minDeborah Aldoly Other [employer] Other 11-01-2022 16:30-5852FuX2% (BldA) [Mass fraction]97 % Clarice Hull Other [employer] Other 11-01-2022 16:30-0400Systolic blood cinjbnva925 mm[Hg] Claricesissy Hull Other [employer] Other 09-28-2022 14:30-0400Body stvqoc821.18 cmNahid Mccoy Other [employer] Other 09-28-2022 14:30-0400Body mass index (BMI) [Ratio] 34.55 kg/j4KqrwcmNahid Mccoy Other [employer] Other 09-28-2022 14:30-0400Body ehwsyp315.06 kgNahid Mccoy Other [employer] Other 09-28-2022 14:30-0400Diastolic blood gnichaum41 mm[Hg] Nahid Mccoy Other [employer] Other 09-28-2022 14:30-0400Respiratory rate18 /minDkeyshawn Mccoy Other [employer] Other 09-28-2022 14:30-7519QqX7% (BldA) [Mass fraction]97 % Nahid Mccoy Other nort [employer] Other 09-28-2022 14:30-0400Systolic blood oxggasfk484 mm[Hg] Nahid Mccoy Other [facility] [employer] Other Encounters Encounter DateEncounter TypeCare ProviderFacilityStart: 09-14-2025 End: 72-73-9673yofycervjxJrkvxhz [facility] Work Phone: Start: 09-14-2025 End: 94-76-3508Rkrycmiv Gwendolyn Lawton MD-LAB Path Spec [facility] Start: 08-13-2025 End: 08-73-0952xpapbdavwcEkniemn [facility] Work Phone: Start: 08-13-2025 End: 15-05-3329Zaqtydlt Gwendolyn Lawton MD-LAB Path [facility] Start: 02-07-2025 End: 90-67-6902aatwjbzmheXqkxanm A. MouchliFacility:Susi DHStart: 02-03-2025 End: 51-34-2671Xscciy flowsNicolle Hughes DECK STEWARD Work Phone: aNA BELLEVUEStart: 02-03-2025 End: 00-14-8993Pfoenp Mari Hughes DECK STEWARD Work Phone: ANA BELLEVUEStart: 02-03-2025 End: 47-78-8154Xkcjvv outpatient visit 25 minutesAngemarianela Hughes DECK STEWARD Work Phone: aNA BELLEVUEComment on above:LIZZETH (obstructive sleep apnea) (Primary Dx); Hypoxia; Hypersomnia; Primary insomnia; SnoringStart: 02-03-2025 End: 90-95-4886fjaylllvblIUBPIO GILLMORNot AvailableStart: 02-01-2025 End: 17-54-6284Eutsbeg encounter procedureMer[facility] [address] Work Phone: Start: 02-01-2025 End: 28-55-8566wvlkmswyftUWP STAFFMercy Health St. [facility] Work Phone: Start: 11-22-2024 End: 26-66-8600Abfpwc flowsheetCorey Lidia DO Work Phone: noms BCP OBStart: 11-22-2024 End: 88-18-8289Wghanv flowsheetCorey Lidia DO Work Phone: noms BCP OBStart: 11-22-2024 End: 43-75-5132Vpjttytne Result EncounterCorey Lidia DO Work Phone: NONY External Department UnsolicitedStart: 11-22-2024 End: 52-78-5741Zgqcdxf encounter procedureCorey Lidia DO Work Phone: noms HealthcareStart: 11-22-2024 End: 59-92-7372Bpysnnbs preventive med est patient 40-64yrsCorey Lidia DO Work Phone: noms BCP OBComment on above:Well woman exam with routine gynecological exam; H/O: hysterectomy; Breast cancer screening by mammogram; Yeast infectionStart: 11-22-2024 End: 93-10-6673trtnppvzbpJHSXE FAZIONot AvailableStart: 11-15-2024 End: 89-43-8893eixmvctqznUhukubv Vytautcarlo Jara MDFacility:PM [facility] Start: 11-01-2024 End: 07-26-3164jzjxrybgwuCkefhjr A. MouchliFacility:[facility] HospitalMaico DHStart: 11-01-2024 End: 44-72-4151Prnuebj encounter procedureVinayak Baltazar [phone]-EbvkyMercy Health [facility] Start: 10-27-2024 End: 72-99-5298Zvizuigqrx and management of inpatientMENNATALEISHA Lawton [facility] Administrationtart: 10-20-2024 End: 04-57-6331derdfrydnyDoz Pat Phone Call Provider [address] [place] [address] - Pre AdmitStart: 10-20-2024 End: 28-31-1774kevtumzlkvSTCPXIU Jered [facility] HospitalStart: 10-18-2024 End: 56-17-1955jczymskewlAjqbutg Vytautas Giedraitis MDFacility:PM [facility] Start: 81-26-0050bvsjmepcdrDrtyvjw MouchliFacility:SchmidtMaico DHStart: 10-13-2024 End: 95-32-9638Acfpyj outpatient new 30 minutesVickybryan [facility] Ravi Schwarz HOT MIX OPERATOR-[facility] Work Phone: [facility] Physicians General SurgeryComment on above: Positive fecal occult blood test (Primary Dx); Rectal bleeding; Gastroesophageal reflux disease, unspecified whether esophagitis presentStart: 10-13-2024 End: 21-38-2685eluzzhyghfSUQQAFSPeaceHealth St[facility] Start: 10-04-2024 End: 11-00-1265vqavvwtlnoRxllfgx Vytautas Giedraitis MDFacility:PM [facility] Start: 09-27-2024 End: 20-41-4911Zotyag outpatient visit 15 minutesCorey Lidia DO Work Phone: noms BCP OBComment on above:Encounter to discuss test results; Vaginal spotting; Hot flashes due to surgical menopause; Surgical menopauseStart: 09-27-2024 End: 58-77-5690wqegzsqkjmGSTOR FAZIONot AvailableStart: 09-27-2024 End: 42-88-6678Ulqewe flowsheetCorey Lidia DO Work Phone: noms BCP OBStart: 09-27-2024 End: 41-92-2863Vycwyn flowsheetCorey Lidia DO Work Phone: noms BCP OBStart: 09-20-2024 End: 71-28-1378hgrnearnvwWxotbwp Pranav Turneredwilder MDFacility:PM [facility] Start: 09-09-2024 End: 21-58-4293spkqkxnvbsQtlyzae D Gundlach PT Work Phone: noms [facility] PTComment on above:Neck pain (Primary Dx); Chronic bilateral low back pain with bilateral sciaticaStart: 09-09-2024 End: 55-58-5467Maqrfy flowsheetMatthew D Gundlach PT Work Phone: noms SWS PTStart: 09-09-2024 End: 38-52-2215Pzfvkl flowsheetMatthew D Gundlach PT Work Phone: noms SWS PTStart: 08-30-2024 End: 28-67-8652zpoortsukeWBT [facility] Work Phone: Start: 08-30-2024 End: 01-19-6747Csmyiigp [facility] [address] Work Phone: start: 04-05-2024 End: 87-09-9946jlwejevuboNFJGP FAZIONot AvailableStart: 03-15-2024 End: 71-97-7885Dhnwyefce department patient visitAvera Gregory Healthcare Center Facility:[facility] Hospitaltart: 08-15-2023 End: 96-97-0525xkwcajjknyCDO [facility] Work Phone: Start: 08-15-2023 End: 46-39-7279Cqpuuwhn [facility] [address] Work Phone: start: 51-20-1190hilvqzihwiSY SAMI MCCARTYFacility:H1 Start: 11-09-2022 End: 44-34-4465levlpimsiiJU DOCTOR MISCFacility:L7Qqayc: 11-01-2022 End: 44-07-8712Kmsifgm encounter procedureMichael R NILL General Surgery Nill/Said [facility] Start: 10-29-2022 End: 38-85-8320ukplslrqnlPhuzqeq Scally Other [employer] Other Start: 86-67-5321Ebaujndut encounterLandmark Medical Center Coordinated Care ClinicStart: 10-14-2022 End: 67-07-4310viecvhmrdvYumthrz Scally Other [employer] Other Start: 83-19-8226Fclrphgjf encounterLandmark Medical Center Coordinated Care ClinicStart: 10-01-2022(FCCCWMNF/U) Weight Management f/uDebsissy Liaoelands Coordinated Care ClinicStart: 10-01-2022 End: 82-59-1210umfcrpmisxGS STEVEN R ZIEBSouthern [place] [facility] CenterAvidBiologics [employer]Bpro Other Start: 09-19-2022 End: 67-18-6301cunkapwvwnBocphx Cundiff Other [facility] FTBpro Other Start: 91-28-5767Erwupbaeg encounterNahid Elisediff [facility] ClinicStart: 09-18-2022 End: 96-76-4193oujkyfwpzzXZ STEVEN R ZIEBERFacility:F8Fsyzq: 09-12-2022 End: 89-52-6329loiiejpmgqPN DAVID V WESTFacility:N6Foyiz: 08-28-2022 End: 00-24-2392fjxmamrnyrUcqoup Cundiff Other [employer] Other Start: 78-99-7546EjcaijyesDonnell Elisediff [facility] ClinicStart: 31-04-1533Yhisepfvd for general adult medical examination without abnormal findingsDR [facility] Start: 07-19-2022 End: 16-64-2244pgvutmynjsNR SAMI HOYFacility:T4Tsuzt: 07-19-2022 End: 13-95-7688Qxohaybod for general adult medical examination without abnormal findingsDR SAMI HOYFacility:Q4Xrems: 07-03-2022 End: 31-59-0547hufpssvbfpTM SAMI HOYFacility:F7Mhuso: 06-10-2022 End: 00-92-8211qxghueqbwlSV SAMI HOYFacility:L7Qbnjc: 05-16-2022 End: 64-03-0127Ckumxmgaja and management of inpatientDR EDLGADO FAZIOFacility:H1 Start: 35-68-5883Hmhpsmhqb for preprocedural laboratory examinationDR [facility] HospitalStart: 05-13-2022 End: 55-44-1681brildbhbxvYS DELGADO FAZIOFacility:U3Abwxi: 05-13-2022 End: 38-31-4406Bbfkuzlfn for preprocedural laboratory examinationDR [facility] Facility:L7Nicqc: 30-26-5600Pbfdjyqmg for preprocedural cardiovascular examinationDR [facility] HospitalStart: 05-08-2022 End: 90-43-2124xfcbrsoccuQD SAMI HOYFacility:N2Kjsdd: 05-08-2022 End: 46-64-3962Vdhocsyqz for preprocedural cardiovascular examinationDR SAMI HOYFacility:A1Bizlu: 05-02-2022 End: 38-99-7271ffitycfetoBE DELGADO FAZIOFacility:N6Saqsn: 02-19-2022 End: 48-40-6317hnvlfixoktVJ SAMI HOYFacility:I7Nszhi: 12-04-2021 End: 25-59-0259fylyljigrdGF SAMI HOYFacility:H1 Procedures DateProcedureProcedure DetailPerforming ClinicianStart: 75-37-1052JhnmpSonia Mccarty MD Work Phone: Start: 29-50-9468ZhdmzaautpnPbvtvcMichelle Hughes NP Work Phone: Start: 19-75-5677MIS,APTIMA HPV,AGE GDLNCorey Lidia DO Work Phone: Start: 89-19-9984Ygsbjxufbfb observation [Identifier] in Cervix by Cyto stainTiesha Hughes DECK STEWARD Work Phone: Start: 64-76-9021UickngdlpwtNfsaz Lidia DO Work Phone: Start: 78-74-1743AzpiipiuirvAtvswya Gundlach PT Work Phone: start: 63-74-1544Kttytvimpcc observation [Identifier] in Cervix by Cyto stainMatthew Hadleydlach PT Work Phone: start: 00-11-1310Wsqkolfk of Right Ovary, Open ApproachDR ABIGAIL [facility] Hospitalart: 11-29-5275Vbmlpqwpp of Bilateral Fallopian Tubes, Open ApproachDR ABIGAIL [facility]: 43-35-8724Bgrvkzuiv of Left Ovary, Open ApproachDR ABIGAIL [facility]: 71-13-4617Qlanspcvr of Uterus, Supracervical, Open ApproachDR ABIGAIL [facility]: 68-77-1783EtspfntulhjVtyvyfu [employer]opro[employer]sdlach PT Work Phone: start: 08-99-4213luentdcnxf biopsy of enlarging painful recurrent lipomas of the left chest wall and left upper abdomenMichael NILL Start: 39-74-7367Oghbwkkredq ablationMohamad Mouchli Start: 11-01-1536PyttyraqejpsnavSngmcta Mouchli Abdominoplasty and liposuctionMichael NILL Arthroscopy of kneeMichael NILL Comment on above:LEFTBreast biopsy and related proceduresMichael NILL Comment on above:LEFTCesarean sectionMichael NILL Diagnostic endoscopic examination of ovaryMichael NILL Comment on above:OVARIAN CYSTS E6Qapjxysyobl ablation Nicola NILL Extraction of wisdom toothMichael NILL H/O: hysterectomyH/O: hysterectomyCorey Lidia DO Work Phone: History of cholecystectomyS/P cholecystectomyMohamad Mouchli Laparoscopic cholecystectomyMichael NILL Laparoscopic excision of cyst of left ovaryMichael NILL Laparoscopic excision of cyst of right ovaryMichael NILL Ligation of fallopian tubeMichael NILL Comment on above:DONE WITH C SECTIONLIPOMA EXCISION 4 Nicola NILL Comment on above:ABDOMEN T9WFCILT FOR TMJMichael NILL Plan of Treatment DateCare ActivityDetailAuthorStart: 92-35-4120Vkaciixmi for malignant neoplasm of colonNOMS HealthcareStart: 27-62-3632Ymjbeoenq for malignant neoplasm of colonNOMS HealthcareStart: 61-14-8921Vmacysmua for malignant neoplasm of cervix [facility] HealthcareStart: 14-47-7250Ozzewrpfv for malignant neoplasm of cervixPap SmearNOMS HealthcareStart: 04-93-4028Srkkpcxvy for malignant neoplasm of cervix Pap SmearProLamar [facility] Hospital [employer] SystemStart: 60-67-4007Wqdosyaee for malignant neoplasm of colonColonoscopyProUpper [facility] SystemStart: 38-76-4399Vupztctux for malignant neoplasm of breastMammogramNOMS HealthcareStart: 61-17-7693Yusol BMI ScreeningAdult BMI ScreeningProUpper Valley Medical Center SystemStart: 69-05-4399Rvzmrfb ScreeningTobacco ScreeningProUpper Valley Medical Center SystemStart: 57-27-4068Usalt[address] Hospitaltart: 19-52-9369Fcnrblae identified in Urine by CultureUrine CultureTrinity Health System Twin City Medical Centertart: 08-13-2025 Bacteria identified in Urine by CultureUrine CultureTrinity Health System Twin City Medical Centertart: 16-24-4486Tvmbb cultureTrinity Health System Twin City Medical Centertart: 03-24-2025 End: 09-68-5788Azzjwqz encounter nslqvfawh48/24/2025 10:00 AM EDT Office Visit [facility] [address] [address] [place] [address] Tiesha Hughes, DECK STEWARD [address] [place] [address] ROSS DAMIANGILYStart: 02-03-2025 End: 20-86-6004Ckkomef encounter /06/2025 8:20 AM EST Office Visit [facility] [address] [place] [address] Tiesha Hughes DECK STEWARD [address] [place] [address] ArrivedROSS WEST YORKComment on above:ArrivedStart: 46-07-0474Wogegmgq [facility] Hospitaltart: 11-00-3132Eoohpeflm complement CH50 [facility] Hospitaltart: 65-02-3991YmyadjpuoTrinity Health System Twin City Medical Centertart: 62-00-0604Ukwogdxcm for malignant neoplasm of breastMammogramNOPA HealthcareStart: 11-22-2024 End: 76-52-5110IY Breast - bilateral ScreeningBilateral screening mammogram Imaging Routine Breast cancer screening by mammogram Expected: 11/22/2024 (Approximate), Expires: 01/23/2026[facility] Work Phone: comment on above:Expected: 11/22/2024 (Approximate), Expires: 01/23/2026Start: 11-22-2024 End: 15-61-6394Ubyoubq encounter procedureNOMS BCP OBComment on above:Arrived Start: 10-27-2024 End: 55-42-9746Mlrafatmx to same day surgery [facility] - SurgeryComment on above:ESOPHAGOGASTRODUODENOSCOPY DIAGNOSTIC [96954 (CPT )]Start: 10-27-2024 End: 85-46-7262Vwacjyimsec flx dx w/collj spec when pfrmdFREMONT SURGERYStart: 10-27-2024 End: 69-04-6972Ntsukyidobjqtqwvhmbkpsbwfc transoral diagnosticFREMONT SURGERY Start: 60-56-2353Dnacbmclvk hospital visit by physicianProMedica [facility] - SurgeryStart: 10-26-2024 End: 81-99-7779Zvhxicl encounter wmnmflofu67/26/2024 1:45 PM EST [facility] [address], [place] Becca Schwarz, HOT MIX OPERATORSAUGUS GENERAL [facility] [address] [place] [address] [facility] SurgeryStart: 10-20-2024 End: 72-12-5292lmotjxsikt29/20/2024 4:20 PM EST Support Visit [facility] - Pre Admit [address] [place] [id number] [facility] - Pre AdmitStart: 09-27-2024 End: 63-86-4061Dwswsms encounter uoqeilxzz37/28/2024 3:10 PM EDT Office Visit [facility] [address] [place] [address] Delgado Murillo DO [address] [place] [address] ArrivedNOMS BCP OBComment on above:ArrivedStart: 09-09-2024 End: 49-45-3547opdatuqepi07/10/2024 4:00 PM EDT Evaluation [facility] PT [address] [place] [address] Carol Webb, PT [address] [place] [address] [facility] PTComment on above:ArrivedStart: 61-33-4223OSUBV-19 Vaccine ( season)COVID-19 Vaccine ( season)[facility] SystemStart: 79-16-7807Kaohqjvyg vaccinationUTAH VALLEY HOSPITAL HealthcareStart: 27-11-0747LVaC,Tdap and Td Vaccines (1 - Tdap)DTaP,Tdap and Td Vaccines (1 - Tdap)[facility] SystemStart: 99-23-1961Kydst BMI Follow Up PlanAdult BMI Follow Up PlanWood County Hospital SystemStart: 26-43-8348Qzwqviwydg Screening Depression ScreeningProUpper Valley Medical Center SystemStart: 75-81-3823Ziieecbim for malignant neoplasm of colonUTAH VALLEY HOSPITAL HealthcareStart: 61-82-8457Fiensuq Counseling Tobacco CounselingThe Christ HospitalCHLAMYDIA TRACHOMATIS (GENITO/STI) CHLAMYDIA TRACHOMATIS (GENITO/STI) Lab Routine Vaginal spotting Ordered: 09/27/2024[facility] HealthcareComment on above:Ordered: 09/27/2024 End: 91-68-0820NOM / ColonoscopyEGD / Colonoscopy GI Routine Positive fecal occult blood test 1 Occurrences starting 10/13/2024 until 10/13/2025[facility] Work Phone: Comment on above:1 Occurrences starting 10/13/2024 until 10/13/2025Neisseria gonorrhoeae DNA [Presence] in Unspecified specimen by NOLA with probe detectionNeisseria gonorrhea DNA probe, direct Lab Routine Vaginal spotting Ordered: 09/27/2024[facility] HealthcareComment on above:Ordered: 09/27/2024SURESWAB(R) ADVANCED VAGINITIS PLUS, TMASURESWAB(R) ADVANCED VAGINITIS PLUS, TMA Pathology and Cytology Routine Vaginal spotting Ordered: 09/27/2024 [facility] Work Phone: comment on above:Ordered: 09/27/2024THIN PREP TIS PAP AND HR HPV DNATHIN PREP TIS PAP AND HR HPV DNA Pathology and Cytology Routine Well woman exam with routine gynecological exam H/O: hysterectomy Ordered: 11/22/2024NOP[facility] HealthcareComment on above:Ordered: 11/22/2024 Immunizations Immunization DateImmunizationNotesCare YatobujzJbccvwaf57-01-9752JESJ-VaI-6 mRNA (dbteyfvjoyu-vsig-bsijucj) vaccineMohamfreddie Lewisli 734-2690Ijhnpx-RuwekMercy Health [facility] Hospital Digestive Bhnbdy75-63-4940 influenza virus vaccine, unspecified formulationJegladys Realoll HOT MIX OPERATOR-FOLDER OPERATOR Work Phone: [facility] HospitalNEGATED: Highlighted row has not occurred!50-76-0729ybbwqxvbc virus vaccine, unspecified formulationMichael NILL [facility] Giancarlo Payers DatePayer CategoryPayerPolicy [id number]-[id number] Health InsuranceMEDICAL MUTUAL [id number] .[id number]777-45-0796Tntfgtstgs Managed Care - [facility] [employer]ICAL [employer] Member Subscriber Plan / Payer (Effective 2014-Present) Name: Horacio Keating Relation to Subscriber: Self Name: Horacio Keating Payer ID: Not on file Type: Not on file Address: [address] [id number] [id number] 2.16840.1.259106.3.57[id number] 2.840.1.186670.3.57[id number] 2.16840.1.019433.3.57[id number] 2.0.1.611381.3.579.[id number] 2.840.1.360899.3.579.[id number] 2.840.1.178878.3.579.2.95661-71-1911Mkrpdiw1185820 2.0.1.559691.3.579.2.98233-27-1325Gfgvfii6593190 2.840.1.935812.3.579.2.96302-84-4999Muyvnxi9511436 2.0.1.323774.3.579.2.05887-91-8523Zjbxtyw1308073 2.16840.1.829210.3.579.2.29511-72-1321Vogyfrr9964982 2.16840.1.058063.3.579.2.81941-44-7321Oijbtaz4553281 2.16840.1.261904.3.579.2.07002-06-5950Izyusyu4127576 2.16840.1.677531.3.579.2.30199-36-4860Micznws3236124 2.16.840.1.422648.3.579.2.99290-54-5679Nmfgttf91122621 2.16.840.1.335786.3.579.2.16248-55-0760Yhazodg04322388 2.16.840.1.711956.3.579.2.993480-28-2859Hcgwajl51953210 2.840.1.612483.3.579.2.571025-00-4667Dgxfade12902933 2.840.1.495214.3.579.2.882252-72-8993Ynwsmzr310652711 2.840.1.273027.3.579.2.59974-70-4139Hjxstov492437128 2.840.1.169955.3.579.2.80249-04-6631Gnwztio151353571 2.840.1.507811.3.579.2.18575-80-2597Wgpwodf301136033 2.840.1.201930.3.579.2.93881-80-9563Qhfofwf0155936 2.840.1.131434.3.579.2.162772-23-8519Siiisgb9664614 2.840.1.875230.3.579.2.304210-15-3143Fdlpont5351427 2.840.1.033116.3.579.2.479969-03-6904Uigaylw0579618 2.840.1.174543.3.579.2.864865-57-4544Bkxvxlo2769809 2.840.1.138461.3.579.2.924834-39-9207Eojfhzd62748993 2.840.1.159478.3.579.2.34847-58-3476Ulmddjw79888884 2.16.840.1.485716.3.579.2.00764-94-9368Imvy-bno59161781833-93-4106Npzmxkz 561440149632 2.16.840.1.668835.09Kyaahit46443348 2.16.840.1.280548.3.579.2.531 Igxjmhv45358425 2.16.840.1.080584.3.579.2.045Tdtlhwh99403944 2.16.840.1.742178.3.579.2.531 Social History DateTypeDetailFacilityUnknown if ever smokedNoprogress west hospital FTBpro Other Start: 10-20-2023 End: 55-53-6412Tew Assigned At [facility] Medical Centertart: 80-70-8436Wtfbpdn smoking statusEx-smoker (finding)General Surgery [place] Tobacco smoking statusFormer smokeless tobacco user, quit more than 30 days ago General Surgery BellevueStart: 13-39-7249Sai Assigned At [facility] Hospitaltart: 09-00-6972Qjpcpzq smoking status NHISSmokes tobacco dailyNOMS HealthcareHistory of tobacco useCigarette SmokerNOMS HealthcareStart: 04-05-2024 End: 64-69-9288Cfryfupnf beverage intakeCurrent drinker of alcohol (finding)[facility] HealthcareStart: 10-20-2023 End: 96-11-6842Bbjpbfm of Social functionNOMS HealthcareHow often to you have a drink containing alcohol?2-4 times a monthNOMS HealthcareHow many standard drinks containing alcohol do you have on a typical day?1 or 2NOMS HealthcareHow often do you have 6 or more drinks on 1 occasion?NeverNOMS HealthcareStart: 21-90-8612Alrjytt CommentAlcohol: 1 or 2 drinks, 2 to 4 times a month; Caffeine: 1-2 cups/dayNOMS HealthcareStart: 09-92-3660Cob assigned at birthNot on file NOMS HealthcareTobaccoCurrent vaping or e-cigarette use Smokeless Tobacco Use:. [facility] Tobacco smoking statusNo Smoking Status EnteredPeoples Hospital [facility] Start: 10-13-2024 End: 73-71-8131Jrpenim smoking status NHISOccasional tobacco smokerProUpper [facility] SystemHistory of tobacco useProUpper Valley [facility] SystemStart: 10-13-2024 End: 79-51-5527Fdzshni use and exposureSmokeless tobacco non-userProUpper Valley Medical Center SystemStart: 76-10-4816Lzinagmam beverage intakeCurrent non-drinker of alcohol (finding)[facility] [employer] SystemStart: 07-06-2015 End: 25-41-4541VznBvozjs (finding)[facility] [employer] SystemStart: 33-53-5004Nieuzt identityIdentifies as female gender (finding)[facility] [employer] SystemStart: 83-95-3240Krafwn orientationHomosexual (finding)[facility] [employer] SystemStart: 74-38-2568Wkfvyqa CommentrarePTeche Regional Medical Centerica [facility] SystemTobacco smoking status NHIS Unknown if ever smokedTrihealth Work Phone: Functional Status UevtYucjcorphwTxjortLngsnvjh15-06-0602Vvyhzfwxiz StatusN/[facility] Fgpjov09-70-4836Aiphijqawo StatusN/AGeneral Surgery [place] Clinical Notes 05-16-2022 to 11-22-2024 Note Date & YhnvXoqdHtdthtjx30-71-1885 History of Present illness Narrative* Franci Sutton MA - 11/22/2024 1:00 PM EST Reason for Appointment: Patient ID: Horacio Keating [...] ABDOMINOPLASTY 2010 tummy tuck BREAST LUMPECTOMY Left 1999 EXCISION 2015 lipoma and cyst left groin and right thigh HYSTERECTOMY 2021 OTHER SURGICAL HISTORY 2015 uterine ablation PELVIC LAPAROSCOPY 2006 laparoscopy-operative POLYPECTOMY 2005 uterine polyp removal ID LAP,CHOLECYSTECTOMY 2003 ID LIGATION,FALLOPIAN TUBE W/ 2006 c-sec w/tubal ID TMJ ARTHROSCOPY/SURGERY 1996 SHOULDER ARTHROSCOPY Left REVIEW [...] nursing note reviewed. Exam conducted with a system analyst present. Vitals: Estimated body mass index is [...] of: Delgado Murillo DO documented in this encounterCenterPointe HospitalLovokdzbsg96-48-3285 Nurse Note* Perioperative Nursing Note - Tammy Casas RN - 10/20/2024 11:10 AM EST Preoperative Education Checklist- General Surgery date: 10/27/24 Surgery time: 1045a Arrival time: 845a 1. Bring a photo ID and your insurance card with you the day of surgery. You will check in at the main lobby of the [facility]- registration desk is straight ahead as soon as you walk in. Tell them you are here for surgery. 2. If you have a Living Will/Durable Power of Wire Communications Engineer for Health Care that is not on [...] after you have bathed. 5. NO nail indian/acrylic on at least one finger. If you are having a hand, wrist or foot surgery then all nail indian and artificial/acrylic nails must be removed from [...] least 8 hours and marijuana for 24 hoursprior to arrival for your surgery. 16. If [...] please call the Preadmission Testing office at [phone], Mon.-Fri. 7 a.m.-3 p.m. Leave a voicemail [...] Stop taking 0 days prior to procedure DropShip11-20-2024 Miscellaneous Notes* Perioperative Nursing Note - Tammy Casas RN - 10/20/2024 11:10 AM EST Preoperative Education Checklist- General Surgery date: 10/27/24 Surgery time: 1045a Arrival time: 845a 1. Bring a photo ID and your insurance card with you the day of surgery. You will check in at the main lobby of the [facility]- registration desk is straight ahead as soon as you walk in. Tell them you are here for surgery. 2. If you have a Living Will/Durable Power of Wire Communications Engineer for Health Care that is not on [...] after you have bathed. 5. NO nail indian/acrylic on at least one finger. If you are having a hand, wrist or foot surgery then all nail indian and artificial/acrylic nails must be removed from [...] least 8 hours and marijuana for 24 hoursprior to arrival for your surgery. 16. If [...] please call the Preadmission Testing office at [phone], Mon.-Fri. 7 a.m.-3 p.m. Leave a voicemail [...] days prior to procedure documented in this encounterThe Christ Hospital11-13-2024 History of Present illness Narrative* Becca Schwarz, DIANE-FOLDER OPERATOR - 10/13/2024 2:30 PM EST Images from the original note were not [...] not have a bowel movement for 3 days.This will be followed by diarrhea. She also [...] 05/28/2021 Performed by Nicola Gee DO at [facility] COLONOSCOPY N/A 05/04/2018 Performed by Nicola Gee DO at [facility] CYST REMOVAL from uterus and ovaries x 5 EGD N/A 05/04/2018 Performed by iNcola Gee DO at [facility] ESOPHAGOGASTRODUODENOSCOPY N/A 05/28/2021 Performed by Nicola Gee DO at [facility] KNEE ARTHROSCOPY Left KNEE ARTHROSCOPY Right [...] capsule, Take 1 capsule (30 mg total) bymouth every morning. Max Daily Amount: 30 mg, [...] muscle spasms., Disp: , Rfl: peg 3350-sod sulf,ajfl-qgm-zzz 178.7-7.3-0.5 gram recon soln, Take 1 kit [...] Referring and communicating with other health manager wound care Positive fecal occult blood test [R19.5] MAYRA VIEIRA [facility] Surgery Rose/Mobile This note was created with the assistance of a speech recognition program. While intending to generate a timely document that accurately reflects the content of the visit, no guarantee can be provided that every grammatical or spelling mistake has been or will be identified or corrected. Thank you for your understanding. MAYRA Vieira 10/13/24 1513 documented in this encounterThe Christ Hospital10-28-2024 History of Present illness Narrative* Kasey Hess LPN - 09/27/2024 3:10 PM EDT Reason for Appointment: Patient ID: Horacio Keating [...] 2006 laparoscopy-operative POLYPECTOMY 2005 uterine polyp removal ID LAP,CHOLECYSTECTOMY 2003 ID LIGATION,FALLOPIAN TUBE W/ 2006 c-sec w/tubal ID TMJ ARTHROSCOPY/SURGERY 1996 SHOULDER ARTHROSCOPY Left REVIEW [...] nursing note reviewed. Exam conducted with a system analyst present. Vitals: Estimated body mass index is 30.07 kg/m as calculated from the following: Height as of 06/26/23: 5' 7 . Weight as of 10/22/23: 192 lb. BP: No LMP recorded. ASSESSMENT & PLAN ICD-10-CM 1. Encounter to discuss test results Z71.2 Patient presents today to review ultrasound results and patient voiced that she does have irregularvaginal spotting. Patient does still have a cervix after hysterectomy. Vaginal cultures obtained without difficulty. Patient to return to clinic for annual appointment. Documented by Kasey Hess LPN on behalf of: Delgado Murillo DO documented in this encounterCenterPointe HospitalIohmxvjosm42-02-3321 History of Present illness Narrative* Carol Webb, PT - 09/09/2024 4:00 PM EDT Images from the original note were not included. Physical Therapy Physical Therapy Evaluation Visit Patient Name: Horacio Keating Today's Date: 09/09/2024 Reason: Neck pain with radicular UE pain; Low back pain with bilateral radiculopathy Visit number: 1 Subjective: Interim History: Horacio is a 49 yo female that presents today with neck pain that travles down herarms, and low back pain that travels down [...] child. No resulting surgeries. 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 Also notes poor balance with no diagnosed [...] symptoms, and + rhomberg with EC LOB Piter not feel Horacio is a good candidate [...] Please sign below. Date: documented in this encounterCenterPointe HospitalBpmurezvcl09-93-8178 NoteEducation Materials Cardiovascular Hypertension, Adult Hypertension is another name for high blood pressure. High blood pressure forces your heart to workharder to pump blood. This can cause problems [...] at each meal with low-fat (lean) proteins. Low- fat proteins includefish, chicken without skin, eggs, beans, and tofu. [...] your heart to beat faster (aerobic exercise) mostdays of the week. This may include walking, swimming, or biking. ? Get at least 30 minutes of exercise that strengthens your muscles (resistance exercise) at least 3 days a week. This may include lifting weights or doing Pilates. ? Do not smoke or use any products that contain nicotine or tobacco. If you need help quitting, askyour doctor. ? Check your blood pressure at home as told by your doctor. ? Keep all follow-up visits. Medicines ? Take wkox-qsh-vllhfbd and prescription medicines only as told by [...] to work harder to (more content not included)...[facility] DaytonYbfkhxpk87-69-9268 Evaluation note* Encounter Date Diagnosis Assessment Notes Treatment Notes Treatment Clinical Notes Oct, Abnormal weight gain (ICD-10 - R 63.5) Oct,2Obesity (ICD-10 - E66.9)Plan, purchase and prepare healthy foods. Use shopping list, electronic shopping to curb impulse buying. Stock pantry with healthy foods. Keep fruits and vegetables accessible. Avoid bringing unhealthy foods in to the home. Plan family meals minimally 3 x per week. Decrease screen time. Oct,rediabetes (ICD-10 - R73.03)Discussed how diabetes II delayed or avoided with [...] 30 minutes most days of the week. Oct,Mixed hyperlipidemia (ICD-10 - E78.2)Discussed risks of elevated LDL. Encouraged intake of foods low in saturated fat as well as supplements (sierra, fish oil). Discussed LDL contributing to insulin resistance and increase cardiovascular risk factors. Oct,Hypertension (ICD-10 - I10)We discussed that the AHA recommends no more than 2,300 mg a daily as an ideal limit, but no more than 1,500 mg daily for most adults, especially those with HTN. Soduim intake below 1,000 mg per day can further improve blood pressure and heart health. Oct,bstructive sleep apnea (ICD-10 - G47.33)Attention to sleep hygiene: Sleep at least 6 [...] with PCP if no increased feelings of restfulness/vigilance during awake hours. Might necessitate sleep adjunct. Awaiting treatment with CPAP encourage vigilance to titration Oct,GERD (gastroesophageal reflux disease) (ICD-10 - K21.9)Discussed secondary benefit of weight loss on reflux disease. Patient also has gastric ulcer in thepast and is on PPI Oct,Metabolic syndrome X (ICD-10 - E88.81) Oct,therI have spent 60 minutes with this patient and over 50% of the visit was counseling done by myself, Ann ANGLIN. [employer] Other 09-28-2022 Evaluation note* Encounter Date Diagnosis Assessment Notes Treatment Notes Treatment Clinical Notes Aug, Abnormal weight gain (ICD-10 - R 63.5) Aug,rediabetes (ICD-10 - R73.03) Aug,Mixed hyperlipidemia (ICD-10 - E78.2) Aug,Hypertension (ICD-10 - I10) Aug,bstructive sleep apnea (ICD-10 - G47.33) Aug,GERD (gastroesophageal reflux disease) (ICD-10 - K21.9) Aug,Metabolic syndrome X (ICD-10 - E88.81) [facility] Other 06-16-2022 NoteDISCHARGE SUMMARY DISCHARGE DATE: 05/18/2022 [...] pain free and no longer on narcotics. [facility] Signed and Approved by: DR DELGADO MURILLO . 05/20/2022 07:51:00[facility] [id number] NoteThe [place], [place] NAME: HORCAIO PUGH DATE OF : MEDICAL REC#: [id number] SPRAY PILOT: Luis LEE MEDICAL ADMIT DATE: 05/16/2022 11:05:00 SENIOR SOFTWARE ARCHITECT DATE: 05/17/2022 21:20 DICTATING PHYSICIAN: DELGADO MURILLO DICTATION DATE: 05/16/2022 15:02 OP Note OPERATION DATE: 05/16/2022 PROCEDURE: Supracervical hysterectomy with left salpingo-oophorectomy with right salpingectomy and right ovarian cystotomy of approximately 3 cm cyst. SURGEON: Delgado Murillo D.O. TERRESTRIAL ECOLOGIST: SHUKRI Bailon URINE OUTPUT: Yellow and clear. [...] Approved by: DR DELGADO MURILLO . 05/23/2022 10:30:00[facility] No data available for this section General Surgery [place] Evaluation + Plan note Future Appointments Appointment Date:02/07/2025 02:15:00 PM Scheduled Provider:Vinayak Baltazar MD Location:[facility] Appointment Type:[facility] Follow Up Future Scheduled Tests Laboratory* Antimitochondrial Antibody, Quantitative 11/01/24 * Smooth Muscle Antibody Screen 11/01/24 * IgA, Quant. 11/01/24 * IgG, Quant. 11/01/24 * t-Transglutaminase IgA 11/01/24 * Comprehensive Metabolic Panel 11/01/24 * Comprehensive Metabolic Panel 12/02/24 * Comprehensive Metabolic Panel 01/02/25 [facility] Evaluation noteNo InformationNort FTBpro Other Evaluation noteNo assessment information available [facility] Work Phone: Evaluation note* Diagnosis Neck pain- Primary Cervicalgia Chronic bilateral low back pain with bilateral sciatica documented in this encounter [facility] HealthcareEvaluation note* Diagnosis Encounter to discuss test [...] whether esophagitis present [facility] Diagnosis LIZZETH (obstructive sleep apnea)- Primary Obstructive sleep apnea (adult) (pediatric) Hypoxia Hypoxemia Hypersomnia Hypersomnia, unspecified Primary insomnia Persistent disorder of initiating or maintaining sleep Snoring Other dyspnea and respiratory abnormality documented in this encounter [facility] HealthcareHistory general Narrative - Reported* Type Description Date Medical History Arthritis Medical HistoryanxietyMedical HistoryhyperlipidemiaMedical Historymigraine headacheMedical HistoryhypertensionMedical HistorysnoringMedical Historyfatigue, daytimeMedical Historysleep apneaMedical Historyback painMedical History prediabetesSurgical HistorycholecystectomySurgical Historyknee arthroscopy Surgical Historylumpectomy, left breastSurgical HistoryC sectionSurgical History female exploritory,Surgical Historyovarian cyst removal [id number] History hysterectomySurgical HistoryTummy [id number] Historylipoma [id number] Surgical HistoryTMJ surgeryHospitalization Historysee above [facility] Other History general Narrative - Reported* Type Description Date Medical History Arthritis Medical HistoryanxietyMedical HistoryhyperlipidemiaMedical Historymigraine headacheMedical HistoryhypertensionMedical HistorysnoringMedical Historyfatigue, daytimeMedical Historysleep apneaMedical Historyback painMedical History prediabetesSurgical HistorycholecystectomySurgical Historyknee arthroscopy Surgical Historylumpectomy, left breastSurgical HistoryC sectionSurgical History female exploritory,Surgical Historyovarian cyst removal [id number] History hysterectomySurgical HistoryTummy [id number] Historylipoma [id number] Surgical HistoryTMJ surgeryHospitalization Historysee aboveHospitalization HistoryER-abd . [facility]09/18/22 [facility] Other Hospital Discharge instructions No data available for this section General Surgery [place] InstructionsNot on filedocumented in this encounter [facility] SystemInstructionsNot on filedocumented in this encounter [facility] No data available for this section General Surgery [place] Reason for referral (narrative)No reason for referral information availableTrihealth Work Phone: Summary Purpose Family History No Family History Records Found Relationship Condition Age at Onset Recorded Date/T lewis aunt Obesity Unknown fatherDiabetes mellitusUnknownDeceasedUnknownObesityUnknowngrandparentObesity UnknownmotherDiabetes mellitusUnknownFamily history of lung cancerUnknown Malignant neoplasmUnknown Advance Directives No Advanced Directives Records Found [...] FOR VISIT (unrecogniz ed section and content) SpecialtyDiagnoses / ProceduresReferred By ContactReferred To ContactPhysical Therapy Diagnoses Other spondylosis, lumbar region Procedures ID PHYS THERAPY EVALUATION Edwige Magaña MD [address] [place] [address] Carol Webb, PT [address] [place] [address] Referral IDStatusReasonStart DateExpiration DateVisits RequestedVisits [id number]lga CommentsGynecologic ExamReasonCommentsPOSITIVE OCCULT TESTPOSITIVE OCCULT STOOL, REF BY DR. StevensCommentsSleep Apnea Patient Care team informatio n (unrecognized section and content) Team Status: Active Member Role Status Dates NON STAFF Primary Care Provider Active Team Status: Inactive Member Role Status Dates NON STAFF Primary Care Provider Active Dedrick Fuller , DO CHCAttending ProviderActive Team Status: Inactive Member Role Status Dates NON STAFF Primary Care Provider Active Start: August 30, 2024 End: August 30sher Fuller - [facility] , DO CHCAttending ProviderActive Start: August 30, 2024 End: August 30, 2024Team MemberRelationshipSpecialtyStart DateEnd Date Sami Mccarty MD [address] [place] [address] PCP - GeneralFaally Medicine06/26/23Team MemberRelationshipSpecialtyStart DateEnd Date Sami Mccarty MD [address] [place] [address] PCP - GeneralFamily Medicine06/26/23Team MemberRelationshipSpecialtyStart DateEnd Date Sami Mccarty MD [address] [place] [address] PCP - GeneralFamily Medicine06/26/23Team MemberRelationshipSpecialtyStart DateEnd Date Sami Mccarty MD [address] [place] [address] PCP - GeneralFamily Medicine06/26/23Team MemberRelationshipSpecialtyStart DateEnd Date Sami Mccarty MD [address] [place] [address] PCP - GeneralFamily Medicine06/26/23Team MemberRelationshipSpecialtyStart DateEnd Date Sami Mccarty MD PCP - General05/04/18Team MemberRelationshipSpecialtyStart DateEnd Date Sami Mccarty MD PCP - General05/04/18Team MemberRelationshipSpecialtyStart DateEnd Date Sami Mccarty MD [address] [place] [address] PCP - GeneralFamily Medicine06/26/23 Tiesha Hughes NP [address] [place], [place] Nurse PractitionerNeurology02/03/25 Shasha White DO [address] [place] [id number] Referring PhysicianNeurology02/03/25Team MemberRelationshipSpecialtyStart DateEnd Date Sami Mccarty MD [address] [place] [address] PCP - GeneralFamily Medicine06/26/23 Tiesha Hughes NP [address] [place] Nurse PractitionerNeurology02/03/25 Shasha White DO [address] [place] [address] Referring PhysicianNeurology02/03/25 Team Status: Inactive Member Role Status Dates NON STAFF Primary Care Provider Active Start: February 01, 2025 End: February 01, 2025Mattsusy Vidal MDAttending ProviderActiveStart: February 01, 2025 End: February 01, 2025 Team Status: Inactive Member Role Status Dates Sami Mccarty MD Attending Provider Active Sta rt: August 13, 2025 End: August 13, 2025 Team Status: Inactive Member Role Status Dates Sami Mccarty MD Attending Provider Active Sta rt: September 14, 2025 End: September 14, 2025 INFORMATION SOURCE (unrecogn ized section and content) DATE CREATED AUTHOR 12/03/2022 [facility] DATE CREATED AUTHOR AUTHOR'S ORGANIZ ATION 03/21/2024 [facility] DATE CREATED AUTHOR AUTHOR'S ORGANIZ ATION 10/15/2024 [facility] DATE CREATED AUTHOR AUTHOR'S ORGANIZ ATION 11/12/2024 [facility] DATE CREATED AUTHOR AUTHOR'S ORGANIZ ATION 11/24/2024 [facility] DATE CREATED AUTHOR AUTHOR'S ORGANIZ ATION 02/05/2025 [facility] DATE CREATED AUTHOR AUTHOR'S ORGANIZ ATION 02/09/2025 [facility] DATE CREATED AUTHOR AUTHOR'S ORGANIZ ATION 09/18/2025 [facility] Goals (unrecognized section and content) Goals [...] BE BASED ON THE PRIMARY CLINICAL RECORDS. [facility]. provides no warranty or guarantee of the accuracy or completeness of information in this document.
--- OUTSIDE RECORDS SUMMARY | 2025-09-21 16:30 | XMS_ITS | Patient Health Record ---
Author Organization [facility] in [place] Address [address] [place] [address] Care Team Providers Care Solar Project Engineer Name Role Phone Finesse Marinelli Primary Care Provider Allergies Allergen (clinical drug ingredient) Drug/Non Drug Allergy documented on EMR Reaction Allergy Type Onset Date Status nitrofurantoin, macrocrystal s / nitrofurantoin, monohydrate Macrobid neck swelling Drug Allergy ActivealbuterolAlbuterolseizureDrug AllergyActive Results Component Value Reference Range Notes CBC AUTO DIFF Reviewed date:01/17/2025 04:47:29 PM Interpretation: Performing Lab: Notes/Report: [facility] , White Blood Count 6.5 4.0-11.0 10 3/uL Red Blood Count4.444.20-5.40 10 6/gYZyzloxsaiv78.912.0-16.0 g/zAHqkpbyrgga48.2 36.0-48.0 %Mean Corpuscular Bvpsrl55.881.0-99.0 fLMean Corpuscular Hemoglobin 31.326.7-34.0 pgMean Corpuscular HGB Conc33.729.9-35.2 g/dLRed Cell Distribution Width11.911.0-15.0 %Platelet Icyyx032909-609 10 3/uLMean Platelet Tlkzug97.89.5- 13.5 fLNeutrophils Percent Auto41.943.0-75.0 %Lymphocytes Percent Auto50.020.5- 60.0 %Monocytes Percent Auto6.21.7-12.0 %Eosinophils Percent Auto1.20.9-7.0 % Basophils Percent Auto0.50.2-2.0 %Immature Granulocytes Pct Auto0.20.0-0.5 % Neutrophils Absolute Auto2.71.4-6.5 10 3/uLLymphocytes Absolute Auto3.31.2-3.8 10 3/uLMonocytes Absolute Auto0.40.3-0.8 10 3/uLEosinophils Absolute Auto0.10.0- 0.7 10 3/uLBasophils Absolute Auto0.00.0-0.1 10 3/uLImmature Granulocytes Abs Auto0.010.00-0.03 10 3/uLPerforming Lab:see noteML - [facility] LB MAGNESIUM Reviewed date:08/14/2025 12:36:43 PM Interpretation: Performing Lab: Notes/Report: [facility] ,Magnesium1.91.8-2.4 mg/dLPerforming Lab:see noteML - [facility] LB PHOSPHORUS Reviewed date:08/14/2025 12:36:43 PM Interpretation: Performing Lab: Notes/Report: [facility] ,Phosphorus4.22.6-4.7 mg/dLPerforming Lab:see noteML - [facility] LB THYROID ANTIBODIES Reviewed date:08/15/2025 07:51:36 PM Interpretation: Performing Lab: Notes/Report: [facility] ,Thyroid Peroxidase (TPO) Ur977-26 IU/mLThyroglobulin Antibody<1.00.0-0.9 IU/mL Thyroglobulin Antibody measured by Abril Annalise Methodology It should be noted that the presence of thyroglobulin antibodies may not be pathogenic nor diagnostic, especially at very low levels. The assay radio repairer has found that four percent of individuals without evidence of thyroid disease or autoimmunity will have positive TgAb levels up to 4 IU/mL. Performed at: [address] [id number] Lpc: Bowen Mcleod PhD, Phone: [phone] Performing Lab:see note - [facility] LBUS renal bladder Reviewed date:08/23/2025 08:49:05 PM Interpretation: Performing Lab: Notes/Report: Source Facility: [facility] [address] Ultrasound Report Signed Patient: PAIGE KEATING MR#: [id number] : 1975 Acct:[id number] Age/Sex: 50 / F ADM Date: 08/23/25 Loc: US Attending Dr: Sami Marinelli M.D. Ordering Physician: Sami Marinelli M.D. Date of Service: 08/23/25 Procedure(s): US renal bladder Accession Number(s): [id number] cc: Sami Marinelli M.D. [place] [address] Patient Name: PAIGE KEATING MRN: [id number] date: 1975 Sex: F Assigned Patient Location: US Current Patient Location: US Accession/Order Number: [id number] Exam Date: 08/23/2025 15:00 Report Date: 08/23/2025 [...] Jr., D.O. 08/23/2025 7:58 PM Dictation Location: [place] [address] Electronically authenticated by: [id number] Y Date: 08/23/2025 19:58 Dictated By: Seymour Hopper M.D. Signed By: 08/23/252000 DD/ 57 TD/TT: Direct Marketing Representative:TUCKER DANGELO ([id number]) - IN OFFICE Reviewed date:09/14/2025 04:15:21 PM Interpretation: Performing Lab: Notes/Report: COLORYellowCLARITYClearGLUCOSENegBILIRUBINNegKETONE+SPECIFIC GRAVITY1.001BLOOD+ PH6.5PROTEINNegUROBILINOGENNegNITRITENegLEUKOCYTE ESTERASENegGLYCOHEMOGLOBIN A1C Reviewed date:11/08/2024 08:11:38 PM Interpretation: Performing Lab: Notes/Report: [facility] ,Glycohemoglobin A1C5.74.5-6.2 % ADA RECOMMENDED LIMIT 4.0 - 6.0 ADA THERAPEUTIC TARGET < 7.0 ACTION SUGGESTED > 7.0 Estimated Average Ghsexbv720Frgdqkeola Lab:see noteML - [facility] LB IRON Reviewed date:11/08/2024 08:11:38 PM Interpretation: Performing Lab: Notes/Report: [facility] ,Iron51.050.0-170.0 ug/dLPerforming Lab:see note - [facility] LB LIVER PROFILE Reviewed date:11/08/2024 08:11:38 PM Interpretation: Performing Lab: Notes/Report: [facility] ,Bilirubin Total0.80.2-1.0 mg/dLBilirubin Direct0.10.0-0.2 mg/dLAspartate Amino Wjaoklofbwj3392-18 U/LAlanine Biqijdgblrqdkgll7605-54 U/LAlkaline Xfysrhxbkjp62 46-116 U/LTotal Protein7.26.4-8.2 g/dLAlbumin Level3.93.4-5.0 g/dLGlobulin3.3 Albumin Globulin Ratio1.2Performing Lab:see noteML - [facility] LBCBC AUTO DIFF Reviewed date:10/07/2024 07:25:15 PM Interpretation: Performing Lab: Notes/Report: [facility] ,White Blood Count8.74.0-11.0 10 3/uLRed Blood Count3.964.20-5.40 10 6/uL Fzxrjfcbns86.112.0-16.0 g/mGCcbyfpndzp07.436.0-48.0 %Mean Corpuscular Zkwlva60.9 81.0-99.0 fLMean Corpuscular Wqsvkrjeps61.626.7-34.0 pgMean Corpuscular HGB Conc 33.229.9-35.2 g/dLRed Cell Distribution Width12.411.0-15.0 %Platelet Thndh976 150-450 10 3/uLMean Platelet Eucguo51.59.5-13.5 fLNeutrophils Percent Auto52.8 43.0-75.0 %Lymphocytes Percent Auto36.920.5-60.0 %Monocytes Percent Auto6.21.7- 12.0 %Eosinophils Percent Auto3.30.9-7.0 %Basophils Percent Auto0.50.2-2.0 % Immature Granulocytes Pct Auto0.30.0-0.5 %Neutrophils Absolute Auto4.61.4-6.5 10 3/uLLymphocytes Absolute Auto3.21.2-3.8 10 3/uLMonocytes Absolute Auto0.50.3-0.8 10 3/uLEosinophils Absolute Auto0.30.0-0.7 10 3/uLBasophils Absolute Auto0.00.0- 0.1 10 3/uLImmature Granulocytes Abs Auto0.030.00-0.03 10 3/uLPerforming Lab:see noteML - [facility] LBFREE T3 Reviewed date:10/07/2024 07:25:15 PM Interpretation: Performing Lab: Notes/Report: [facility] ,Free T33.362.18-3.98 pg/mLPerforming Lab:see note - [facility] LB GLYCOHEMOGLOBIN A1C Reviewed date:10/07/2024 07:25:15 PM Interpretation: Performing Lab: Notes/Report: [facility] ,Glycohemoglobin A1C6.14.5-6.2 % ADA RECOMMENDED LIMIT 4.0 - 6.0 ADA THERAPEUTIC TARGET < 7.0 ACTION SUGGESTED > 7.0 Estimated Average Jwadydi774Ylnyrsextt Lab:see noteML - [facility] LB INSULIN Reviewed date:10/09/2024 03:43:12 PM Interpretation: Performing Lab: Notes/Report: [facility] ,Vjtrbso49.12.6-24.9 uIU/mL Performed at: [address] [id number] Lpc: Bowen Mcleod PhD, Phone: [phone] Performing Lab:see noteLC - [facility] LBPROF 14(COMP METB) Reviewed date:10/07/2024 07:25:15 PM Interpretation: Performing Lab: Notes/Report: [facility] ,Vgwths323797-794 mmol/LPotassium3.93.5-5.1 mmol/WZwmmofoc99513-512 mmol/LCarbon Pfkrdce10.121.0-32.0 mmol/LAnion Gap11.7Jqqvzzk0872-160 mg/dLBlood Urea Nitrogen 10.07.0-18.0 mg/dLCreatinine0.910.55-1.02 mg/dLEstimated GFR ( Blank>60 >=60 mL/min/1.73m 2Estimated GFR (Non- Hamida>60>=60 mL/min/1.73m 2BUN Creatinine Ratio11.7Qwcdzhd2.58.5-10.1 mg/dLBilirubin Total1.00.2-1.0 mg/dL Aspartate Amino Wgdwpxnvdrm1499-80 U/LAlanine Uleqvtiuifabxmdp9576-09 U/L Alkaline Qefenxbrkga9289-813 U/LTotal Protein6.26.4-8.2 g/dLAlbumin Level3.33.4- 5.0 g/dLGlobulin2.9Albumin Globulin Ratio1.1Performing Lab:see noteML - [facility] LBT4 Reviewed date:10/07/2024 07:25:16 PM Interpretation: Performing Lab: Notes/Report: [facility] ,T4 Kwxlkjubl18.404.80-13.90 ug/dLPerforming Lab:see noteML - [facility] LBTSH Reviewed date:10/07/2024 07:25:16 PM Interpretation: Performing Lab: Notes/Report: [facility] ,Thyroid Stimulating Hormone2.2910.358-3.740 uIU/mLPerforming Lab:see note - [facility] LBTestosterone Reviewed date:10/09/2024 03:43:12 PM Interpretation: Performing Lab: Notes/Report: [facility] ,Testosterone<34-50 ng/dLPerforming Lab:see noteLC - [facility] LBFSH Reviewed date:10/09/2024 03:43:12 PM Interpretation: Performing Lab: Notes/Report: [facility] ,FSH98.5. mIU/mL Adult Female Range Follicular phase 3.5 - 12.5 Ovulation phase 4.7 - 21.5 Luteal phase 1.7 - 7.7 Postmenopausal 25.8 - 134.8 Performed at: [facility] [address] [id number] Lpc: Bowen Mcleod PhD, Phone: [phone] Performing Lab:see noteLC - [facility] LBOccult Blood* Reviewed date:10/09/2024 03:43:12 PM Interpretation: Performing Lab: Notes/Report: [facility] ,Occult BloodPositivePerforming Lab:see noteML - [facility] LBANA by IFA Reviewed date:10/17/2024 01:38:38 PM Interpretation: Performing Lab: Notes/Report: [facility] ,Antinuclear Antibodies, IFAPositive. Negative <1:80 Borderline 1:80 Positive >1:80 Homogeneous Pattern1:80.ICAP nomenclature: AC-1Nucleolar PatternTNP.Speckled PatternTNP.Centromere PatternTNP.Spindle Apparatus PatternTNP.Nuclear Membrane PatternTNP.Midbody PatternTNP.Nuclear Dot PatternTNP.PCNA PatternTNP.Centriole PatternTNP.Note:Comment. Pattern Potential Disease Association Homogeneous Systemic Lupus Erythematosus, Drug Induced Systemic Lupus Erythematosus, Chronic Autoimmune hepatitis, Juvenile Idiopathic Arthritis Speckled Sjogren Syndrome, Systemic Lupus Erythematosus, Subacute Cutaneous Lupus, Lupus, Congenital Heart Block, Mixed Connective Tissue Disease, Scleroderma-diffuse, Scleroderma-Autoimmune Myositis Overlap Syndrome, Systemic Lupus Acmzrzquvimhk-Xxnvllbgtbf-Koioianpym Myositis Overlap Syndrome, Systemic Autoimmune Rheumatic Disease, [...] Cytopenias, Linear Scleroderma, Antiphospholipid Syndrome Performed at: [facility] [id number] Lpc: Bowen Mcleod PhD, Phone: [phone] Performing Lab:see Fabian - [facility] LBCRP Reviewed date:10/13/2024 07:34:20 PM Interpretation: Performing Lab: Notes/Report: [facility] ,C Reactive Protein<0.50<=0.50 mg/dLPerforming Lab:see noteML - [facility] LBPROF 14(COMP METB) Reviewed date:10/13/2024 07:34:20 PM Interpretation: Performing Lab: Notes/Report: [facility] ,Yqiakz456254-756 mmol/LPotassium3.73.5-5.1 mmol/PVmjrydin55919-512 mmol/LCarbon Vodfkcj00.821.0-32.0 mmol/LAnion Gap16.3Tnclles1209-595 mg/dLBlood Urea Nitrogen 14.07.0-18.0 mg/dLCreatinine1.020.55-1.02 mg/dLEstimated GFR ( Blank>60 >=60 mL/min/1.73m 2Estimated GFR (Non- Ame58>=60 mL/min/1.73m 2BUN Creatinine Ratio13.0Mqvjhay8.38.5-10.1 mg/dLBilirubin Total1.50.2-1.0 mg/dL Aspartate Amino Qornelvblfb7284-45 U/LAlanine Cdzsecdngetiqoro6251-74 U/L Alkaline Ixoyizladbn8801-201 U/LTotal Protein7.36.4-8.2 g/dLAlbumin Level3.93.4- 5.0 g/dLGlobulin3.4Albumin Globulin Ratio1.1Performing Lab:see note - [facility] LBRHEUMATOID FACTOR Reviewed date:10/17/2024 01:38:38 PM Interpretation: Performing Lab: Notes/Report: [facility] ,Rheumatoid Factor (RF)<10.0<14.0 IU/mLPerforming Lab:see note - [facility] LB URIC ACID SERUM Reviewed date:10/13/2024 07:34:20 PM Interpretation: Performing Lab: Notes/Report: [facility] ,Uric Acid6.42.6-6.0 mg/dLPerforming Lab:see note - [facility] LB Testosterone Reviewed date:10/17/2024 01:38:38 PM Interpretation: Performing Lab: Notes/Report: [facility] ,Testosterone<34-50 ng/dL Performed at: [address] [id number] Lpc: Bowen Mcleod PhD, Phone: [phone] Performing Lab:see note - [facility] LBAntistreptolysin O Ab Reviewed date:10/17/2024 01:38:38 PM Interpretation: Performing Lab: Notes/Report: [facility] ,Antistreptolysin O Ab52.60.0-200.0 IU/mL Performed at: [address] [id number] Lpc: Bowen Mcleod PhD, Phone: [phone] Performing Lab:see note - [facility] LBAcute Hepatitis Reviewed date:10/15/2024 06:25:47 AM Interpretation: Performing Lab: Notes/Report: [facility] ,Hep A Ab, IgMNegativeNegative A negative anti-HAV IgM result suggests no recent or current HAV infection. HBsAg ScreenNegativeNegativeHep B Core Ab, IgMNegativeNegativeHCV AbNon Reactive Non ReactiveInterpretation:Comment. Not infected with HCV unless early or acute infection is suspected (which may be delayed in an immunocompromised individual), or other evidence exists to indicate HCV infection. Performed at: [address] [id number] Lpc: Bowen Mcleod PhD, Phone: [phone] Performing Lab:see note - [facility] LBUS right upper quadrant Reviewed date:10/15/2024 06:25:47 AM Interpretation: Performing Lab: Notes/Report: Source Facility: [place] [address] [place] [address] Ultrasound Report Signed Patient: PAIGE KEATNIG MR#: [id number] : 1975 Acct:[id number] Age/Sex: 49 / F ADM Date: 10/13/24 Loc: US Attending Dr: Sami Marinelli M.D. Ordering Physician: Sami Marinelli M.D. Date of Service: 10/13/24 Procedure(s): US right upper quadrant Accession Number(s): [id number] cc: Sami Marinelli M.D. [place] [address] Patient Name: PAIGE KEATING MRN: [id number] date: 1975 Sex: F Assigned Patient Location: US Current Patient Location: Accession/Order Number: [id number] Exam Date: 10/13/2024 07:02 Report Date: 10/14/2024 [...] M.D. Signed By: 10/14/245 DD/ 2 TD/TT: Direct Marketing Representative:LAB TESTING Reviewed date:11/10/2024 07:25:39 PM Interpretation: Performing Lab: Notes/Report: [id number] SLE PROFILE A [facility] ,Miscellaneous TestCOMMENT. Test Ordered: [id number] Systemic Lupus Profile A CRIMINOLOGY PROFESSOR Antibodies 0.2 AI CB Reference Range: 0.0-0.9 [...] 5 - 9 Positive >9 Performed at: [address] [id number] Lpc: Bowen Mcleod PhD, Phone: [phone] Performing Lab:see [facility] LBImmunoglobulin A, Qn, Serum Reviewed date:11/10/2024 07:25:39 PM Interpretation: Performing Lab: Notes/Report: [facility] ,Immunoglobulin A, Mt77028-172 mg/dL Performed at: [address] [id number] Lpc: Bowen Mcleod PhD, Phone: [phone] [facility]forming [facility] LBImmunoglobulin G, Qn, Serum Reviewed date:11/10/2024 07:25:39 PM Interpretation: Performing Lab: Notes/Report: [facility] ,Immunoglobulin G, Xg412423-4306 mg/dLPerforming Lab:see [facility] LBt- Transglutaminase (tTG) IgA Reviewed date:11/10/2024 07:25:39 PM Interpretation: Performing Lab: Notes/Report: [facility] ,t-Transglutaminase (tTG) IgA<20-3 U/mL Negative 0 - 3 Weak Positive 4 - 10 Positive >10 Tissue Transglutaminase (tTG) has been identified as the endomysial antigen. Studies have demonstr- ated that endomysial IgA antibodies have over 99% specificity for gluten sensitive enteropathy. Performed at: [address] [id number] Lpc: Bowen Mcleod PhD, Phone: [phone] Performing Lab:see [facility] LBLAB TESTING Reviewed date:11/10/2024 07:25:39 PM Interpretation: Performing Lab: Notes/Report: [id number] SLE PROFILE B [facility] ,Miscellaneous TestCOMMENT. Test Ordered: [id number] Systemic Lupus Profile B Complement C4, Serum 25 mg/dL CB Reference Range: 12-38 Complement C3, Serum 144 mg/dL CB Reference Range: 82-167 Anti-DNA (DS) Ab Qn <1 IU/mL CB Reference Range: 0-9 Negative <5 Equivocal 5 - 9 Positive >9 Antichromatin Antibodies <0.2 AI CB Reference Range: 0.0-0.9 ROSS Direct Negative CB Reference Range: Negative Performed at: [address] [id number] Lpc: Bowen Mcleod PhD, Phone: [phone] Performing Lab:see [facility] LBLAB TESTING Reviewed date:11/10/2024 07:25:39 PM Interpretation: Performing Lab: Notes/Report: [id number] MITOCHONDRIAL ANTIBODY [facility] ,Miscellaneous TestCOMMENT. Test Ordered: [id number] Mitochondrial (M2) Antibody Mitochondrial (M2) Antibody <20.0 Units CB Reference Range: 0.0-20.0 Negative 0.0 - 20.0 Equivocal 20.1 - 24.9 Positive >24.9 Mitochondrial (M2) Antibodies are found in 90-96% of patients with primary biliary cirrhosis. Performed at: [address] [id number] Lpc: Bowen Mcleod PhD, Phone: [phone] Performing Lab:see [facility] LBLAB TESTING Reviewed date:11/10/2024 07:25:39 PM Interpretation: Performing Lab: Notes/Report: [id number] SMOOTH MUSCLE ANTIBODY [facility] ,Miscellaneous TestCOMMENT. Test Ordered: [id number] Actin (Smooth Muscle) Antibody Actin (Smooth Muscle) Antibody 5 Units CB Reference Range: 0-19 Negative 0 - 19 Weak positive 20 - 30 Moderate to strong positive >30 Actin Antibodies are found in 52-85% of patients with autoimmune hepatitis or chronic active hepatitis and in 22% of patients with primary biliary cirrhosis. Performed at: [address] [id number] Lpc: Bowen Mcleod PhD, Phone: [phone] Performing Lab:see [facility] LBMR cervical spine wo con Reviewed date:11/15/2024 02:07:00 PM Interpretation: Performing Lab: Notes/Report: Source Facility: [facility]-[address] [place] [address] [place] [address] Magnetic Resonance Report Signed Patient: PAIGE KEATING MR#: [id number] : 1975 Acct:[id number] Age/Sex: 49 / F ADM Date: 11/12/24 Loc: MRI Attending Dr: Kyle Streeter NP Ordering Physician: Kyle Streeter NP Date of Service: 11/12/24 Procedure(s): MR cervical spine wo con Accession Number(s): [id number] cc: Kyle Streeter NP; Sami Marinelli M.D. [place] [id number] Patient Name: PAIGE KEATING MRN: [id number] date: 1975 Sex: F Assigned Patient Location: MRI Current Patient Location: Accession/Order Number: [id number] Exam Date: 11/12/2024 13:48 Report Date: 11/15/2024 [...] M.D. Signed By: 11/15/24728 DD/ 5 TD/TT: Direct Marketing Representative:Arthur ZAVALA HPV,Age Gdln Reviewed date:12/01/2024 03:16:58 PM Interpretation: Performing Lab: Notes/Report: SPATULA-ALONE VAGINA [facility] ,Age Gdln ACOG TestingNote. TESTS RESULT FLAG UNITS REF RANGE LAB Clinician Provided Cytology Information Source.............Vagina No. of containers..01 ThinPrep Vial Age Algo ACOG Mya... 30-65 01 FLAG LEGEND: L-Low Normal,H-High Normal,LL-Alert Low,HH-Alert High <-Panic Low,>-Panic High,A-Abnormal,AA-Critical Abnormal Performed at: 01 =G [facility] [address] [address] Britta Wang MD, IGP, Aptima HPV, rfx 16/18,45Note. TESTS RESULT FLAG UNITS REF RANGE LAB DIAGNOSIS: 02 NEGATIVE FOR INTRAEPITHELIAL LESION OR MALIGNANCY. FUNGAL ORGANISMS MORPHOLOGICALLY CONSISTENT WITH VIVIANE SPECIES ARE PRESENT. Specimen adequacy: 02 Satisfactory for evaluation. Endocervical and/or squamous metaplastic cells (endocervical component) are present. Performed by: 02 Steve Saenz, Supervisor Paper Testing ([facility]) . 02 Note: Note 03 [...] High,A-Abnormal,AA-Critical Abnormal Performed at: 02 [facility] [place] [facility] [address] [place] [address] Kristian Waterman MD, 03 WB [facility] [address] [address] Britta Wang MD, HPV AptimaNegativeNegative This nucleic acid amplification test detects fourteen high- risk HPV types (16,18,31,33,35,39,45,51,52,56,58,59,66,68) without differentiation. Performed at: =G - [facility] [address] [id number] Lpc: Britta Wang MD, Phone: [phone] Performed at: [facility] - [facility] [place] [facility] [address] [place], [place] [id number] Lpc: Kristian Waterman MD, Phone: [phone] Performing Lab:see noteLC - [facility] MITCHELLANA by IFA Reviewed date:01/18/2025 09:15:56 PM Interpretation: Performing Lab: Notes/Report: [facility] ,Antinuclear Antibodies, IFAPositive. Negative <1:80 Borderline 1:80 Positive >1:80 Homogeneous PatternTNP.Nucleolar PatternTNP.Speckled Pattern1:160.ICAP nomenclature: AC-2,4,5,29Centromere PatternTNP.Spindle Apparatus PatternTNP. Nuclear Membrane PatternTNP.Midbody PatternTNP.Nuclear Dot PatternTNP.PCNA PatternTNP.Centriole PatternTNP.Note:Comment. Pattern Potential Disease Association Homogeneous Systemic Lupus Erythematosus, Drug Induced Systemic Lupus Erythematosus, Chronic Autoimmune hepatitis, Juvenile Idiopathic Arthritis Speckled Sjogren Syndrome, Systemic Lupus Erythematosus, Subacute Cutaneous Lupus, Lupus, Congenital Heart Block, Mixed Connective Tissue Disease, Scleroderma-diffuse, Scleroderma-Autoimmune Myositis Overlap Syndrome, Systemic Lupus Cvfguwrmofuru-Jmpqtmufwts-Cjaobnrssb Myositis Overlap Syndrome, Systemic Autoimmune Rheumatic Disease, [...] Cytopenias, Linear Scleroderma, Antiphospholipid Syndrome Performed at: [facility] [address] [id number] Lpc: Bowen Mcleod PhD, Phone: [phone] Performing Lab:see luly - [facility] LBCRP Reviewed date:01/17/2025 04:47:29 PM Interpretation: Performing Lab: Notes/Report: [facility] ,C Reactive Protein<0.50<=0.50 mg/dLPerforming Lab:see luly - [facility] LBRHEUMATOID FACTOR Reviewed date:01/18/2025 09:16:06 PM Interpretation: Performing Lab: Notes/Report: [facility] ,Rheumatoid Factor (RF)<10.0<14.0 IU/mLPerforming Lab:[facility] LB URIC ACID SERUM Reviewed date:01/17/2025 04:47:29 PM Interpretation: Performing Lab: Notes/Report: [facility] ,Uric Acid4.52.6-6.0 mg/dLPerforming Lab:see note - [facility] LB Erythrocyte Sedimentation Rate Reviewed date:01/17/2025 04:47:29 PM Interpretation: Performing Lab: Notes/Report: [facility] ,Erythrocyte Sedimentation Rate9<=20 mm/hrPerforming Lab:[facility] LBAntistreptolysin O Ab Reviewed date:01/18/2025 09:16:06 PM Interpretation: Performing Lab: Notes/Report: [facility] ,Antistreptolysin O Ab56.30.0-200.0 IU/mL Performed at: [address] [id number] Lpc: Bowen Mcleod PhD, Phone: [phone] Performing Lab:[facility] LBMM tomosynthesis screening BI Reviewed date:01/30/2025 12:35:04 PM Interpretation: Performing Lab: Notes/Report: Source Facility: [place] [address] Mammography Report Signed Patient: PAIGE KEAITNG MR#: [id number] : 1975 Acct:[id number] Age/Sex: 49 / F ADM Date: 01/28/25 Loc: MAMMO Attending Dr: Aura Murillo D.O. Ordering Physician: Aura Murillo D.O. Results: Date of Service: 01/28/25 Follow Up: Procedure(s): MM tomosynthesis screening BI Accession Number(s): [id number] cc: Aura Murillo D.O.; Sami Marinelli M.D. Patient Name: PAIGE KEATING MR#: [id number] : 1975 Exam Date: 01/28/2025 Ordering Doctor: [...] at age 77. LOCATION: [facility] BREAST COMPOSITION: There are [...] 01/28/2025 at 13:46 Dictated By: J Carlos Cta M.D. Signed By: 01/28/25 1350 DD/ 1349 TD/TT: Direct Marketing Representative: thoracic spine wo con Reviewed date:01/30/2025 12:35:04 PM Interpretation: Performing Lab: Notes/Report: Source Facility: [place] [address] [place] [address] Magnetic Resonance Report Signed Patient: PAIGE KEATING MR#: [id number] : 1975 Acct:[id number] Age/Sex: 49 / F ADM Date: 01/28/25 Loc: MRI Attending Dr: Sami Marinelli M.D. Ordering Physician: Sami Marinelli M.D. Date of Service: 01/28/25 Procedure(s): thoracic spine wo con Accession Number(s): [id number] cc: Sami Marinelli M.D. [address] [address] Patient Name: PAIGE KEATING MRN: [id number] date: 1975 Sex: F Assigned Patient Location: MRI Current Patient Location: MRI Accession/Order Number: [id number] Exam Date: 01/28/2025 15:57 Report Date: 01/28/2025 [...] Carlos Cat M.D.01/28/2025 4:11 PM Dictation Location: [place] [address] Electronically authenticated by: [id number] Y Date: 01/28/2025 16:11 Dictated By: J Carlos Cat M.D. Signed By: 01/28/254 DD/ 10 TD/TT: Direct Marketing Representative:ROSS by IFA Reviewed date:08/15/2025 07:51:36 PM Interpretation: Performing Lab: Notes/Report: [facility] ,Antinuclear Antibodies, IFANegative. Negative <1:80 Borderline 1:80 Positive >1:80 ICAP nomenclature: AC-0 For more information about Hep-2 cell patterns use ANApatterns.org, the official website for the International Consensus on Antinuclear Antibody (ROSS) Patterns (ICAP). Performed at: - [facility] [address] [id number] Lpc: Bowen Mcleod PhD, Phone: [phone] Performing Lab:see note - [facility] LBCBC AUTO DIFF Reviewed date:08/14/2025 12:36:43 PM Interpretation: Performing Lab: Notes/Report: [facility] ,White Blood Count6.74.0-11.0 10 3/uLRed Blood Count4.374.20-5.40 10 6/uL Crvbgqqeta01.712.0-16.0 g/dYVjhviurjwh02.936.0-48.0 %Mean Corpuscular Qigpan09.3 81.0-99.0 fLMean Corpuscular Oktdrqmzyo84.426.7-34.0 pgMean Corpuscular HGB Conc 34.329.9-35.2 g/dLRed Cell Distribution Width12.011.0-15.0 %Platelet Crobk236 150-450 10 3/uLMean Platelet Mzzcru18.49.5-13.5 fLNeutrophils Percent Auto50.7 43.0-75.0 %Lymphocytes Percent Auto42.120.5-60.0 %Monocytes Percent Auto5.51.7- 12.0 %Eosinophils Percent Auto1.00.9-7.0 %Basophils Percent Auto0.40.2-2.0 % Immature Granulocytes Pct Auto0.30.0-0.5 %Neutrophils Absolute Auto3.41.4-6.5 10 3/uLLymphocytes Absolute Auto2.81.2-3.8 10 3/uLMonocytes Absolute Auto0.40.3-0.8 10 3/uLEosinophils Absolute Auto0.10.0-0.7 10 3/uLBasophils Absolute Auto0.00.0- 0.1 10 3/uLImmature Granulocytes Abs Auto0.020.00-0.03 10 3/uLPerforming Lab:see noteML - [facility] LBCRP Reviewed date:08/14/2025 12:36:43 PM Interpretation: Performing Lab: Notes/Report: [facility] ,C Reactive Protein<0.50<=0.50 mg/dLPerforming Lab:see noteML - [facility] LBFOLATE Reviewed date:08/14/2025 12:36:43 PM Interpretation: Performing Lab: Notes/Report: [facility] ,Eikybg16.408.60-58.90 ng/mLPerforming Lab:see noteML - [facility] FREE T3 Reviewed date:08/14/2025 12:36:43 PM Interpretation: Performing Lab: Notes/Report: [facility] ,Free T32.202.18-3.98 pg/mLPerforming Lab:see noteML - [facility] LB GLYCOHEMOGLOBIN A1C Reviewed date:08/14/2025 12:36:43 PM Interpretation: Performing Lab: Notes/Report: [facility] ,Glycohemoglobin A1C5.44.5-6.2 % ADA RECOMMENDED LIMIT 4.0 - 6.0 ADA THERAPEUTIC TARGET < 7.0 ACTION SUGGESTED > 7.0 Estimated Average Twsgupp935Oqqouaukcn Lab:see noteML - [facility] INSULIN Reviewed date:08/14/2025 01:13:07 PM Interpretation: Performing Lab: Notes/Report: [facility] ,Qlozfsm93.52.6-24.9 uIU/mL Performed at: - [facility] [address] [id number] Lpc: Bowen Mcleod PhD, Phone: [phone] Performing Lab:see noteLC - [facility] LBIRON Reviewed date:08/14/2025 12:36:43 PM Interpretation: Performing Lab: Notes/Report: [facility] ,Iron71.050.0-170.0 ug/dLPerforming Lab:see noteML - [facility] LB LIPID PROFILE Reviewed date:08/14/2025 12:36:43 PM Interpretation: Performing Lab: Notes/Report: [facility] ,Emblmdeuqacrd338<=150 mg/lUWiqkvuzwhls504<=200 mg/dLHDL Hsgjvllrbxc1002-30 mg/dL > or =60 mg/dl - LOW CARDIOVASCULAR RISK <40 mg/dl - HIGH CARDIOVASCULAR RISK LDL Cholesterol Agtojsnsrl208.0 <100 mg/dl OPTIMAL 100-129 mg/dl NEAR OR ABOVE OPTIMAL 130-159 mg/dl BORDERLINE HIGH 160-189 mg/dl HIGH >190 mg/dl VERY HIGH VLDL NPJUQXDDOMP06.8Chol HDL Ratio5.4 3.3 - 4.4 LOW RISK 4.4 - 7.1 AVERAGE RISK 7.1 - 11.0 MODERATE RISK >11.0 HIGH RISK Performing Lab:see noteML - [facility] LBPROF 14(COMP METB) Reviewed date:08/14/2025 12:36:43 PM Interpretation: Performing Lab: Notes/Report: [facility] ,Vqikaj665878-256 mmol/LPotassium3.93.5-5.1 mmol/ZFdnumiyu36609-360 mmol/LCarbon Hzefipm02.621.0-32.0 mmol/LAnion Gap12.9Sjlrkgq48081-885 mg/dLBlood Urea Nacghooj53.07.0-18.0 mg/dLCreatinine0.740.55-1.02 mg/dLEstimated GFR ( Blank>60>=60 mL/min/1.73m 2Estimated GFR (Non- Hamida>60>=60 mL/min/1.73m 2BUN Creatinine Ratio16.4Vshlcuh7.98.5-10.1 mg/dLBilirubin Total1.00.2-1.0 mg/dL Aspartate Amino Rqdruhbxlot6806-57 U/LAlanine Jjyalkubzwxrobqx9138-44 U/L Alkaline Vedrprngpgm6574-541 U/LTotal Protein7.66.4-8.2 g/dLAlbumin Level4.23.4- 5.0 g/dLGlobulin3.4Albumin Globulin Ratio1.2Performing Lab:see noteML - [facility] LBRHEUMATOID FACTOR Reviewed date:08/15/2025 07:51:36 PM Interpretation: Performing Lab: Notes/Report: [facility] ,Rheumatoid Factor (RF)<10.0<14.0 IU/mLPerforming Lab:see noteLC - [facility] LBT4 Reviewed date:08/14/2025 12:36:43 PM Interpretation: Performing Lab: Notes/Report: [facility] ,T4 Thyroxine7.804.80-13.90 ug/dLPerforming Lab:see noteML - [facility] LBTSH Reviewed date:08/14/2025 12:36:43 PM Interpretation: Performing Lab: Notes/Report: [facility] ,Thyroid Stimulating Hormone0.9060.358-3.740 uIU/mLPerforming Lab:see noteML - [facility] LBUA RANDOM W or MICROSCOPIC Reviewed date:08/14/2025 12:36:43 PM Interpretation: Performing Lab: Notes/Report: [facility] ,Color UrineYELLOWYELLOWClarity UrineCLEARCLEARSpecific Dolliver Urine>=1.030 1.005-1.025pH Urine5.55.0-9.0Protein UrineNEGATIVENEG/TRACE mg/dLGlucose Urine UANEGATIVENEGATIVE mg/dLBilirubin UrineNEGATIVENEGATIVEKetones UrineNEGATIVE NEGATIVE mg/dLBlood UrineNEGATIVENEGATIVENitrite UrineNEGATIVENEGATIVE Urobilinogen Urine0.20.2-1.0 EU/dLLeukocyte Esterase UrineNEGATIVENEGATIVEWBC UrineNONE SEENNONE SEEN #/HPFRBC Urine2-50-2 #/HPFBacteria UrineTRACENONE SEEN #/HPFMucus UrineNONE SEENNONE SEENSquamous Epithelial Cell UrineMODERATE NONE/RARE #/LPFCrystals Seen?None SeenNone Seen #/HPFCast Seen?NONE SEENNONE SEEN #/LPFUrine Culture IndicatedALREADY ORDEREDPerforming Lab:see noteML - [facility] LBURIC ACID SERUM Reviewed date:08/14/2025 12:36:43 PM Interpretation: Performing Lab: Notes/Report: [facility] ,Uric Acid5.02.6-6.0 mg/dLPerforming Lab:see noteML - [facility] LB Testosterone Reviewed date:08/15/2025 07:51:36 PM Interpretation: Performing Lab: Notes/Report: [facility] ,Testosterone<34-50 ng/dL Performed at: [address] [id number] Lpc: Bowen Mcleod PhD, Phone: [phone] Performing Lab:see note - [facility] LBAntistreptolysin O Ab Reviewed date:08/15/2025 07:51:36 PM Interpretation: Performing Lab: Notes/Report: [facility] ,Antistreptolysin O Ab57.00.0-200.0 IU/mL Performed at: [address] [id number] Lpc: Bowen Mcleod PhD, Phone: [phone] Performing Lab:[facility] note[facility] LBVitamin D, 25-Hydroxy Reviewed date:08/15/2025 07:51:36 PM Interpretation: Performing Lab: Notes/Report: [facility] ,Vitamin D, 25-Tnfvwov68.230.0-100.0 ng/mL Vitamin D deficiency has been defined by the [place] of [employer] and an Endocrine Society practice guideline as a level of serum 25-OH vitamin D less than 20 ng/mL (1,2). The Endocrine Society went on to further define vitamin D insufficiency as a level between 21 and 29 ng/mL (2). 1. IOM ([place] of [employer]). 2010. Dietary reference intakes for calcium and D. [place]: The National Academies Press. 2. Benita MEIER, Kyra ALEXANDRE, Hal RIVERA, et al. Evaluation, treatment, and prevention of vitamin D deficiency: an Endocrine Society clinical practice guideline. JCEM. 2010; 96(7):1911-30. Performed at: [address] [id number] Lpc: Bowen Mcleod PhD, Phone: [phone] Performing Lab:see note - [facility] LBVitamin B12 Reviewed date:08/14/2025 12:36:43 PM Interpretation: Performing Lab: Notes/Report: [facility] ,Vitamin L73593988-0588 pg/mL Performed at: [address] [id number] Lpc: Bowen Mcleod PhD, Phone: [phone] Performing Lab:see note - [facility] LBUrine Culture - [facility] Reviewed date:08/15/2025 01:10:10 PM Interpretation: Performing Lab: Notes/Report: [facility] ,Urine Culture - FRMCSee Below For Report Urine Culture - [facility] >100,000 colonies/ml mixed Urine Culture - FRMCbacterial skin contaminants Urine Culture - [facility] >100,000 colonies/ml mixed Urine Culture - [facility]2 Days Urine Culture - [facility] >100,000 colonies/ml mixed Urine Culture - [facility] Urine Culture - [facility] >100,000 colonies/ml mixed Urine Culture - [facility]MCTesting [facility] at [facility] Urine Culture - [facility] >100,000 colonies/ml mixed Urine Culture - [id number] [place] [address] Urine Culture - [facility] >100,000 colonies/ml mixed Performing Lab:see noteML - [facility] LBImmunoglobulins A/G/M, Qn, Ser Reviewed date:08/14/2025 01:13:07 PM Interpretation: Performing Lab: Notes/Report: [facility] ,Immunoglobulin G, Qn, Szncf7562466-6978 mg/dLImmunoglobulin A, Qn, Wwmxm05616- 352 mg/dLImmunoglobulin M, Qn, Dogfv9185-474 mg/dL Performed at: [address] [id number] Lpc: Bowen Mcleod PhD, Phone: [phone] Performing Lab:see note - [facility] LBUS pelvis transvaginal Reviewed date:08/23/2025 08:49:05 PM Interpretation: Performing Lab: Notes/Report: Source Facility: [place] [address] Ultrasound Report Signed Patient: PAIGE KEATING MR#: [id number] : 1975 Acct:[id number] Age/Sex: 50 / F ADM Date: 08/23/25 Loc: US Attending Dr: Sami Marinelli M.D. Ordering Physician: Sami Marinelli M.D. Date of Service: 08/23/25 Procedure(s): US pelvis transvaginal Accession Number(s): [id number] cc: Sami Marinelli M.D. [place] [address] Patient Name: PAIGE KEATING MRN: [id number] date: 1975 Sex: F Assigned Patient Location: Current Patient Location: [place] Accession/Order Number: [id number] Exam Date: 08/23/2025 15:00 Report Date: 08/23/2025 [...] Jr., D.O. 08/23/2025 8:00 PM Dictation Location: [place] [address] Electronically authenticated by: [id number] Y Date: 08/23/2025 20:00 Dictated By: Seymour Hopper M.D. Signed By: 08/23/252001 DD/ 99 TD/TT: Direct Marketing Representative:ROSS malik IFA Reviewed date:09/18/2025 11:10:07 AM Interpretation: Performing Lab: Notes/Report: [facility] ,Antinuclear Antibodies, IFANegative. Negative <1:80 Borderline 1:80 Positive >1:80 ICAP nomenclature: AC-0 For more information about Hep-2 cell patterns use ANApatterns.org, the official website for the International Consensus on Antinuclear Antibody (ROSS) Patterns (ICAP). Performed at: [address] [id number] Lpc: Bowen Mcleod PhD, Phone: [phone] [facility] LBCRP Reviewed date:09/14/2025 07:16:52 PM Interpretation: Performing Lab: Notes/Report: [facility] ,C Reactive Protein<0.50<=0.50 mg/dLPerforming Lab:see note - [facility] LBFREE T4 Reviewed date:09/14/2025 07:16:52 PM Interpretation: Performing Lab: Notes/Report: [facility] ,Free T41.140.76-1.46 ng/dLPerforming Lab:see note - [facility] LB RHEUMATOID FACTOR Reviewed date:09/18/2025 11:10:07 AM Interpretation: Performing Lab: Notes/Report: [facility] ,Rheumatoid Factor (RF)<10.0<14.0 IU/mLPerforming Lab:[facility] noteSky [facility] LBTSH Reviewed date:09/14/2025 07:16:52 PM Interpretation: Performing Lab: Notes/Report: [facility] ,Thyroid Stimulating Hormone1.5000.358-3.740 uIU/mLPerforming Lab:see note - [facility] LBUA RANDOM W or MICROSCOPIC Reviewed date:09/14/2025 07:16:52 PM Interpretation: Performing Lab: Notes/Report: [facility] ,Color UrineLT. YELLOWYELLOWClarity UrineCLEARCLEARSpecific Dolliver Urine<=1.005 1.005-1.025pH Urine6.05.0-9.0Protein UrineNEGATIVENEG/TRACE mg/dLGlucose Urine UANEGATIVENEGATIVE mg/dLBilirubin UrineNEGATIVENEGATIVEKetones UrineNEGATIVE NEGATIVE mg/dLBlood UrineNEGATIVENEGATIVENitrite UrineNEGATIVENEGATIVE Urobilinogen Urine0.20.2-1.0 EU/dLLeukocyte Esterase UrineTRACENEGATIVEWBC Urine 2-5NONE SEEN #/HPFRBC Urine0-20-2 #/HPFBacteria UrineTRACENONE SEEN #/HPFMucus UrineNONE SEENNONE SEENSquamous Epithelial Cell UrineRARENONE/RARE #/LPFCrystals Seen?None SeenNone Seen #/HPFCast Seen?NONE SEENNONE SEEN #/LPFUrine Culture IndicatedALREADY ORDEREDPerforming Lab:see noteML - [facility] LBURIC ACID SERUM Reviewed date:09/14/2025 07:16:52 PM Interpretation: Performing Lab: Notes/Report: [facility] ,Uric Acid5.92.6-6.0 mg/dLPerforming Lab:see note - [facility] LB Erythrocyte Sedimentation Rate Reviewed date:09/14/2025 07:16:52 PM Interpretation: Performing Lab: Notes/Report: [facility] ,Erythrocyte Sedimentation Rate5<=20 mm/hrPerforming Lab:see note - [facility] LBAntistreptolysin O Ab Reviewed date:09/18/2025 11:10:07 AM Interpretation: Performing Lab: Notes/Report: [facility] ,Antistreptolysin O Ab63.20.0-200.0 IU/mL Performed at: [address] [id number] Lpc: Bowen Mcleod PhD, Phone: [phone] Performing Lab:[facility] LBCeliac Disease Comprehensive Reviewed date:09/18/2025 11:10:07 AM Interpretation: Performing Lab: Notes/Report: [facility] ,Deamidated Gliadin Abs, MpA08-54 units Negative 0 - 19 Weak Positive 20 - 30 Moderate to Strong Positive >30 Deamidated Gliadin Abs, AfD43-15 units Negative 0 - 19 Weak Positive 20 - 30 Moderate to Strong Positive >30 t-Transglutaminase (tTG) IgA<20-3 U/mL Negative 0 - 3 Weak Positive 4 - 10 Positive >10 Tissue Transglutaminase (tTG) has been identified as the endomysial antigen. Studies have demonstr- ated that endomysial IgA antibodies have over 99% specificity for gluten sensitive enteropathy. t-Transglutaminase (tTG) IgG30-5 U/mL Negative 0 - 5 Weak Positive 6 - 9 Positive >9 Endomysial Antibody IgANegativeNegativeImmunoglobulin A, Qn, Nivpz33369-177 mg/dLPerforming Lab:see note - [facility] LBUrine Culture - [facility] Reviewed date:09/19/2025 12:29:13 PM Interpretation: Performing Lab: Notes/Report: [facility] ,Urine Culture - FRMCSee Below For Report Urine Culture - [facility] Organism not Routinely Tested for Susceptibilities O:LACJEN Isolated Urine Culture - [facility] Casey Count Urine Culture - [facility] Urine Culture - [facility] Organism not Routinely Tested for Susceptibilities O:LACJEN Isolated Urine Culture - [facility] Casey Count Urine Culture - [facility]CTesting performed at [facility] Urine Culture - [facility] Organism not Routinely Tested for Susceptibilities O:LACJEN Isolated Urine Culture - [facility] Casey Count Urine Culture - [id number] [place] [address] Urine Culture - [facility] Organism not Routinely Tested for Susceptibilities O:LACJEN Isolated Urine Culture - [facility] Casey Count Urine Culture - FRMCSee Below For Report Urine Culture - [facility] Organism not Routinely Tested for Susceptibilities O:LACJEN Isolated Urine Culture - [facility] Casey Count Urine Culture - FRMCSee Below For Report Urine Culture - [facility] Organism not Routinely Tested for Susceptibilities O:LACJEN Isolated Urine Culture - [facility] Casey Count Urine Culture - [facility]>100,000 Urine [facility] - [facility] Organism not Routinely Tested for Susceptibilities O:LACJEN Isolated Urine Culture - [facility] Casey Count Performing Lab:see noteML - [facility] LBHSV Culture and Typing (Not yet reviewed by provider) Interpretation: Performing Lab: Notes/Report: [facility] ,HSV Culture and TypingComment. Positive for Herpes simplex virus type-1. Typing was confirmed by monoclonal antibody microscopic immunofluorescence. Performed at: [address] [id number] Lpc: Bowen Mcleod PhD, Phone: [phone] Performing Lab:[facility] LBChlamydia/GC Amplification Reviewed date:09/21/2025 01:03:13 PM Interpretation: Performing Lab: Notes/Report: [facility] ,Chlamydia trachomatis, NAANegativeNegativeNeisseria gonorrhoeae, NAANegative Negative Performed at: = - [facility] [address] [place] [id number] Lpc: Birtta Wang MD, Phone: [phone] Performing Lab:see noteLC - [facility] LB Reason For Referral Reason Had last colonoscopy with you in 2018 Diagnosis 1 Positive occult stoo l blood test (R19.5) Referral Organization [facility] Referring Provider First Name Finesse Referring Provider Last Name [facility] Referring Provider [facility] Referred Provider Nicola Gee Referred Provider Specialty General Surg rita Referral Priority Routine Diagnosis 1 Elevated liver enzym es (R74.8) Referral Organization [facility] Referring Provider First Name Finesse Referring Provider Last Name [facility] Referring Provider [facility] Referred Provider Vinayak Baltazar Referred Provider Specialty Gastroentero logy Referral Priority Routine Diagnosis 1 Hand arthritis (M12. 9) Diagnosis 2 Other specified arth ritis, right hand (M13.841) Referral Organization [facility] Referring Provider First Name Finesse Referring Provider Last Name [facility] Referring Provider [facility] Referred Provider Nathan Vidal Referred Provider Specialty Rheumatology Referral Priority Routine Diagnosis 1 Other specified arth ritis, right hand (M13.841) Referral Organization [facility] Referring Provider First Name Finesse Referring Provider Last Name [facility] Referring Provider [facility] Referred Provider Rosalind Lara Referred Provider Specialty Orthopedic S urgery Referral Priority Routine Medications Medication SIG (Take, Route, Frequency, Duration) Notes Start Date End Date Status Adderall 10 MG 1 tablet Orally Q afternoon 5ActiveSemaglutide 0.6 mg/0.5 mL Semaglutide 0.6 mg/0.5 mL0.5 mL Subcutaneous Once Weekly; Duration: 30 days08/09/2024ctivePotassium Chloride ER 10 MEQ1 tablet with food Orally Twice a day; Duration: 90 vpusBGO2404/08/2024 ActiveOndansetron 4 MG1 tablet on the tongue and allow to dissolve Orally Once a day; Duration: 30 days09/03/2024ctiveOmeprazole 40 MG1 capsule Orally twice a day; Duration: 90 daysActiveBaclofen 5 MG1-2 tablet as needed Orally at HS PRN 09/02/2024ctiveALPRAZolam 0.25 MG 1 tablet Orally once daily; Duration: 7 days As needed F41.9 5ActiveAdderall XR 30 MG1 capsule in the morning Orally Once a day; Duration: 30 days02/09/2025tiveTestosterone 10 MG/ACT (2%)1 pump to skin in the morning to the thighs Transdermal QOD; Duration: 30 days10/19/2024ctive Adderall 30 MG1 tablet Orally q am; Duration: 30 days09/06/2025tiveTerbinafine HCl 250 MG1 tablet Orally Once a day; Duration: 30 days03/23/2025tive Nabumetone 750 MGas directed Orally BIDActiveMupirocin 2 %1 application Externally Twice a day; Duration: 5 days03/23/2025tiveMetoprolol Tartrate 75 mgTAKE 1 TABLET TWICE A DAY WITH FOODActivemetFORMIN HCl 500 MG1 tablet with a meal Orally BID; Duration: 90 days10/13/2024ctiveGabapentin 300 MG 1 capsule Orally at HS; Duration: 30 days M48.04 5ActiveGabapentin 100 MG 1 capsule Orally in AM and 1 PO at 3pm; Duration: 30 days M48.04 5ActiveFluconazole 100 MG1 tablet Orally daily; Duration: 10 days 09/12/2025tiveEstradiol 0.5 MG1 tablet Orally Once a day; Duration: 30 days 10/07/2024ctivevalACYclovir HCl 500 MG1 tablet Orally Once a day; Duration: 30 days09/21/2025tiveLisinopril 10 MG1 tablet Orally Once a day; Duration: 90 daysActiveLidocaine HCl 3 %as directed Externally 3 times a day5Active Lasix 20 MG1 tablet Orally Once a day; Duration: 90 tznsPFY3904/08/2024ctive tiZANidine HCl 2 MG1 tablet at bedtime as needed Orally Once a day; Duration: 30 days07/04/2025tiveDoxycycline Hyclate 100 MG1 capsule Orally twice a day; Duration: 10 days09/15/2025tiveCipro 500 MG1 tablet Orally BID; Duration: 10 days5ActiveCipro 500 MG1 tablet Orally BID; Duration: 10 days03/01/2025 Active Social History Tobacco Use: Social History Observation Description Date Details (start date - stop date) Former Smoker NA - 12/31/2009 Tobacco Use/Smoking Question Answer Notes Patient is a former smoker When did you stop smoking?12/31/2009How long has it been since you last smoked?> 10 yearsAUDIT-C (Standard) Question Answer Notes Did you have a drink containing alcohol in the p ast year? No Wfuriq8VlpkyyvgvlqrhmPjfywjfb Problems Problem Type SNOMED Code ICD Code Onset Dates Problem Status W/U Status Risk Notes Problem Obstructive sleep ap natalia syndrome (disorder) (70902407) Obstructive sleep apnea (adult) (pediatric) (G47.33) ActiveconfirmedProblemPrimary insomnia (2398167)Primary insomnia (F51.01)Active confirmedProblemHidradenitis suppurativa (77110897)Hidradenitis suppurativa (L73.2)ActiveconfirmedProblemAllergic arthritis of the hand (599417702)Other specified arthritis, right hand (M13.841)ActiveconfirmedProblemDegeneration of lumbar intervertebral disc (30204909)Other intervertebral disc degeneration, lumbar region (M51.36)ActiveconfirmedProblemDysuria (92637426)Dysuria (R30.0) ActiveconfirmedProblemFatigue (71856512)Fatigue (R53.83)ActiveconfirmedProblem Hypertension (49894182)Hypertension (I10)ActiveconfirmedProblemGastroesophageal reflux disease (126327765)GERD (gastroesophageal reflux disease) (K21.9)Active confirmedProblemAnxiety (34575340)Anxiety (F41.9)ActiveconfirmedProblemNeck pain (78024519)Neck pain (M54.2)ActiveconfirmedProblemThoracic spinal stenosis (03155889)Thoracic spinal stenosis (M48.04)ActiveconfirmedProblemArthralgia (43495192)Arthralgia (M25.50)ActiveconfirmedProblemWell adult (489309134)Well adult (Z00.00)ActiveconfirmedProblemPain in limb (12276010)Right hand pain (M79.641)ActiveconfirmedProblemAbnormal vaginal bleeding (691954785)DUB (dysfunctional uterine bleeding) (N93.8)ActiveconfirmedProblemNarcolepsy (79938556)Narcolepsy (G47.419)ActiveconfirmedProblemPlantar fasciitis (069456928)Plantar fasciitis (M72.2)ActiveconfirmedProblemHypotestosteronemia (6296104254755)Hypotestosteronemia (E29.1)ActiveconfirmedProblemDiverticular disease of colon (226527967)Diverticula of colon (K57.30)ActiveconfirmedProblem Vaginal bleeding (065554494)Vaginal bleeding (N93.9)ActiveconfirmedProblem 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)Activeconfirmed ProblemHerpes simplex of female genitalia (973189883)Herpes genitalis in women (A60.09)ActiveconfirmedProblemVisual disturbance (82585997)Vision changes (H53.9)ActiveconfirmedProblemArthropathy (635259264)Hand arthritis (M12.9)Active confirmedProblemSnoring (72544144)Snorings (R06.83)ActiveconfirmedProblem Irritable bowel syndrome (09191172)Irritable bowel syndrome (IBS) (K58.9)Active confirmedProblemArthralgia of the pelvic region and thigh (609828707)Hip pain, acute (M25.559)ActiveconfirmedProblemhypercholesterolemia (disorder) (72512519) Hypercholesteremia (E78.00)ActiveconfirmedProblemPrediabetes (790309871)Pre- diabetes (R73.03)ActiveconfirmedProblemCyst of right ovary (62040222976932259) Ovarian cyst, right (N83.201)ActiveconfirmedProblemArthritis of right hand (195363053839988)Arthritis of right hand (M19.041)ActiveconfirmedProblemLow testosterone (736816822)Low testosterone (E34.9)ActiveconfirmedProblemCOVID-19 (645944809)COVID-19 (U07.1)Activeconfirmed Vital Signs Blood pressure diastolic 74 mm Hg 09/21/2025 Iosbzm44 in09/21/2025lood pressure prxthlfu454 mm Hg09/21/20254831Teuezh987.2 lbs 09/21/2025BMI28.22 kg/m209/21/2025 Encounters Encounter Location Date Provider Diagnosis [facility] [address] [facility] [place] [address] 08/23/2025 Finesse rob [facility] [place] [facility] [place] [place] [address] 09/06/2025Doug yOther specified arthritis, right hand M13.841 and Jaw pain R68.84[facility] [facility] [place] [address]/[facility] [facility] [place] [address]/[facility] [facility] [place] [address]/[facility] [facility] [place] [address]/[facility] [facility] [place] [address]/10/2025 Finesse HoyOther specified arthritis, right hand M13.841B[facility] [facility] [place] [address]/Doug yWell adult Z00.00 ; Jaw pain R68.84 and Other specified arthritis, right hand M13.841 Medical [facility] [facility] [place] [address] 08/15/2025[facility] [facility] [place] [address]/[facility] [facility] [place] [address]/[facility] [facility] [place] [address]/Doug HoyVaginal bleeding N93.9 [facility] [facility] [place] [address] 03/28/2025Doug HoyJaw pain R68.84[facility] [place] [address]/Doug HoyBSt. [facility] [facility] [place] [address]/Doug HoyJaw pain R68.84 and Other specified arthritis, right hand M13.841[facility] [place] [facility] [place] [address]/01/2025Doug HoyJaw pain R68.84 and Other specified arthritis, right hand M13.841[facility] [place] [address]/03/2025Doug HoyOther specified arthritis, right hand M13.841 and Jaw pain R68.84[facility] [place] [address]/03/2025Doug HoyJaw pain R68.84 ; Other specified arthritis, right hand M13.841 and Hypertension I10BV[facility] [address] [place] [address]/10/2025Doug HoyHypertension I10 and Other specified arthritis, right hand M13.841[facility] [place] [address]/12/2024Doug [facility]oyBV[facility] [place] [address]/05/2025Doug HoyOther specified arthritis, right hand M13.841B[place] [address] [facility] [place] [address]/Doug HoyKidney cysts Q61.00 [facility] [place] [address] 03/25/2025Doug HoyJaw pain R68.84[facility] [place] [address]/Doug HoyJaw pain R68.84[facility] [facility] [address]/[facility] [facility] [place] [address]/08/2025 Finesse HoyHypertension C19LphnupoMedical [facility] [facility] [address]/[facility] [facility] [place] [address]/[facility] [facility] [place] [address]/Doug HoyOther specified arthritis, right hand M13.841BSt. [facility] [facility] [address]/01/2025Doug HoyOther specified arthritis, right hand M13.841BSt. [facility] [facility] [address]/[facility] [facility] [address]/oug HoyHypertension K29KiwrbyhMedical [facility] [facility] [address]/ [facility] [facility] [address]/[facility] [facility] [place] [address]/oug HoyHypertension I10BVH [facility] [facility] [place] [address]/oug HoyHypertension J61NheafcwMedical [facility] [place] [address] 4[facility] [facility] [address]/[facility] [facility] [address]/[facility] [facility] [place] [address]/03/2024g HoyHypertension I10 ; Fatigue R53.83 and Elevated liver enzymes R74.8BSt. [facility] [address] [facility] [place] [address]/oug HoyHypertension I10 [facility] [facility] [place] [address] 11/10/2024[facility] [facility] [address]/07/2024oug HoyElevated liver enzymes R74.8 and Fatigue R53.83 [facility] [facility] [place] [address] 10/09/2024oug HoyPositive occult stool blood test R19.5 and Fatigue R53.83 [facility] [facility] [address] 4Doug [facility] [facility] [place] [address]/13/2024oug HoyElevated liver enzymes R74.8BSt. [facility] [facility] [address]/4Doug Hoy [facility] [facility] [place] [address] 10/17/2024ouTerri [place] [address] [facility] [place] [address]/[place] [address] [facility] [place] [address]/oug [place] [address] [facility] [place] [address]/[place] [address] [facility] [place] [address]/Doug HoyHerpes genitalis in women A60.09 and Hidradenitis suppurativa L73.2B[address] [place] [address]/oug Hoy Hypertension I10 ; Pre-diabetes R73.03 and DUB (dysfunctional uterine bleeding) N93.8B[address] [address] 10/18/2024oug HoyHypertension I10 ; GERD (gastroesophageal reflux disease) K21.9 ; Low testosterone E34.9 and Arthralgia M25.[address] [address]/Doug HoyOther specified arthritis, right hand M13.841 ; Arthralgia M25.50 and Thoracic spinal stenosis M48.[address] [address]/Doug HoyJaw pain R68.84 and Pre-diabetes R73.[address] [address]/10/2025 Finesse HoyHypercholesteremia E78.00 ; Arthritis of right hand M19.041 ; Low testosterone E34.9 and Well qziaxY74.[address] [address]/Doug HoyDysuria R30.0 Assessments Encounter Date Diagnosis (ICD Code) Assessment Notes Treatment Notes Treatment Clinical Notes Section Notes 10/06/2024 Hypertension (ICD-10 - I10) 10/06/2024re-diabetes (ICD-10 - R73.03)10/06/2024UB (dysfunctional uterine bleeding) (ICD-10 - N93.8)10/18/2024Hypertension (ICD-10 - I10)10/18/2024GERD (gastroesophageal reflux disease) (ICD-10 - K21.9)09/14/2025Dysuria (ICD-10 - R30.0)09/21/2025Herpes genitalis in women (ICD-10 - A60.09)09/21/2025 Hidradenitis suppurativa (ICD-10 - L73.2)10/07/2024Elevated liver enzymes (ICD- 10 - R74.8)10/07/2024Fatigue (ICD-10 - R53.83)10/09/2024ositive occult stool blood test (ICD-10 - R19.5)10/09/2024Fatigue (ICD-10 - R53.83)10/13/2024Elevated liver enzymes (ICD-10 - R74.8)11/02/2024Hypertension (ICD-10 - I10)11/02/2024 Fatigue (ICD-10 - R53.83)01/14/2025Other specified arthritis, right hand (ICD-10 - M13.841)01/14/2025rthralgia (ICD-10 - M25.50)03/23/2025Jaw pain (ICD-10 - R68.84)03/23/2025Pre-diabetes (ICD-10 - R73.03)08/11/2025Hypercholesteremia (ICD-10 - E78.00)08/11/2025rthritis of right hand (ICD-10 - M19.041)11/08/2024 Hypertension (ICD-10 - I10)11/12/2024Hypertension (ICD-10 - I10)11/19/2024 Hypertension (ICD-10 - I10)11/26/2024Hypertension (ICD-10 - I10)01/10/2025 Hypertension (ICD-10 - I10)01/27/2025Other specified arthritis, right hand (ICD- 10 - M13.841)01/30/2025Other specified arthritis, right hand (ICD-10 - M13.841) 02/08/2025Hypertension (ICD-10 - I10)03/07/2025Other specified arthritis, right hand (ICD-10 - M13.841)03/16/2025Kidney cysts (ICD-10 - Q61.00)03/25/2025Jaw pain (ICD-10 - R68.84)03/28/2025Jaw pain (ICD-10 - R68.84)03/28/2025Jaw pain (ICD-10 - R68.84)04/27/2025Jaw pain (ICD-10 - R68.84)06/01/2025Jaw pain (ICD-10 - R68.84)07/04/2025Other specified arthritis, right hand (ICD-10 - M13.841) 08/11/2025Other specified arthritis, right hand (ICD-10 - M13.841)08/14/2025Well adult (ICD-10 - Z00.00)08/05/2025Jaw pain (ICD-10 - R68.84)08/22/2025Vaginal bleeding (ICD-10 - N93.9)09/06/2025Other specified arthritis, right hand (ICD-10 - M13.841)09/06/2025Jaw pain (ICD-10 - R68.84)08/05/2025Other specified arthritis, right hand (ICD-10 - M13.841)08/14/2025Jaw pain (ICD-10 - R68.84) 07/04/2025Jaw pain (ICD-10 - R68.84)06/01/2025Other specified arthritis, right hand (ICD-10 - M13.841)04/27/2025Other specified arthritis, right hand (ICD-10 - M13.841)02/08/2025Other specified arthritis, right hand (ICD-10 - M13.841) 08/11/2025Low testosterone (ICD-10 - E34.9)01/14/2025Thoracic spinal stenosis (ICD-10 - M48.04)11/02/2024Elevated liver enzymes (ICD-10 - R74.8)10/18/2024Low testosterone (ICD-10 - E34.9)10/18/2024rthralgia (ICD-10 - M25.50)08/11/2025 Well adult (ICD-10 - Z00.00)08/14/2025Other specified arthritis, right hand (ICD-10 - M13.841)08/05/2025Hypertension (ICD-10 - I10) Plan Of Treatment Pending Test Test Name Order Date CMP (COMPLETE METABOLIC PANEL) 3 CMP (COMPLETE METABOLIC PANEL) HEMOGLOBIN A1C (GLYCO) 10/06/2024 HEMOGLOBIN A1C (GLYCO) 08/11/2025 HERPES ANTIBODY 2, IGG (HSV 2, IGG) 09/01 IRON, TOTAL 08/11/2025 LIPID PANEL (CHOL/TRIG/HDL/LDL) 08/11/20 [...] Insulin Level 08/11/2025 ACUTE HEPATITIS PANEL 10/07/2024 HERPES ANTIBODY 1, IGG (HSV 1, IGG) CMP - Comprehensive Metabolic Panel 05/2024 HERPES SIMPLEX 1 IGM (IFA) 09/21/2025 HERPES SIMPLEX 2 IGM (IFA) 09/21/2025 TESTOSTERONE 10/07/2024 STOOL OCCULT BLOOD 08/11/2025 STOOL [...] w/eGFR CKD-EPI 2024 CBC WITH DIFF 08/11/2025 HSV Culture and Typing 09/19/2025 Insurance Providers Payer Name Payer Address Payer Phone Subscriber Number Group Number Insured Name Patient Relationship to Insured Coverage Start Date Coverage End Date MMO [employer] [address] [place] [address] [id number] Trisha Keatingelf - patient is the insured Medications Administered Medication Instructions Date of Administration Dosage Notes DEPO-Medrol 20 ff302Hestlatbgapev, 4mg/mL mg12 mgKenalog-40101/13/2023 120 ta538Cazdfktxx Ukkuartcvorq48/04/936051 rs02Zdqgkqqrklxe Emlwzxm080 mg60 Medical (General) History Medical History History ICD [...] s teroid inj 10/04/24 colonoscopy 2020 hysterectomy CholecystectomyEndometrial Polyp removalTubal Ligation
--- OUTSIDE RECORDS SUMMARY | 2025-09-21 16:31 | XMS_ITS | Encounter Summary ---
Author Organization [facility] Address [address] [place] [address] Care Team Providers Care Bacteriologist Pharmaceutical Name Role Phone Varun Marinelli MD Primary Care Provider [phone] Tiesha Hughes SURVEY RESEARCH ANALYST Unavailable [phone] Shasha White DO Unavailable [phone] Encounter Details DateTypeDepartmentCare Team (Latest Contact Info)Brudynwqdpa48/17/2025Telephone [facility] [address] [place] [address] Delgado Murillo DO [address] [facility] [address] [place] [address] Social History Tobacco UseTypesPacks/DayYears UsedDateSmoking Tobacco: Every [...] RecordedSex Assigned at BirthNot on fileLegal Sex Tkzmbr3602/12/2023 6:36 PM EDTGender IdentityNot on fileSexual OrientationNot on filedocumented as of this encounter Miscellaneous Notes * [...] documented in this encounter Plan of Treatment DateTypeDepartmentCare Team (Latest Contact Info)Ketqbclwjfo11/27/2025 3:10 PM EDTOffice Visit [facility] [address] [place] [address] Delgado Murillo DO [address] [place] [address] documented as of this encounter Visit Diagnoses Not on filedocumented in this encounter Care Teams Team MemberRelationshipSpecialtyStart DateEnd Date Varun Marinelli MD PCP - GeneralFamily Medicine06/26/23 Tiesha Hughes NP Nurse PractitionerNeurology02/03/25 Shasha White DO [address] [place] [address] Referring PhysicianNeurology02/03/25documented as of this encounter
[2025-09-23 05:08] LABS: HSV 1 IgG, Type Spec Non Reactive (Non Reactive); HSV 2 IgG, Type Spec Non Reactive (Non Reactive)
== END 2025-09-21 16:25 | disposition home or self-care (01) ==
LOC: LAB 16:25
PROVIDERS: PCP Family Medicine; Visit Provider Family Medicine
DX: A60.09 Herpesviral infection of other urogenital tract (principal)
CPT/HCPCS: 36415; 86695; 86696